=== PATIENT | female | born 1950 | race Caucasian/White ===

== ENCOUNTER 2023-01-10 14:33 | Inpatient (IN) | payer MEDICARE, SELFPAY ==
--- NOTE | ~2023-01-10 | XR_ITS ---
XR fl guide central line place 01/12/2023 09:53 Indication: Insertion of the dura Juan M permacatheter TECHNIQUE: Fluoroscopy used during Insertion of the dura Juan M permacatheter performed by [Daniel Avalos MD] on 01/12/2023. 66 seconds of fluoroscopy time with one fluoroscopic images captured. FINDINGS: Correlate with procedure note. IMPRESSION: Fluoroscopy used during Insertion of the dura Juan M permacatheter. Catheters appear to be i n the SVC. Recommend correlation with follow-up chest x-ray. Reviewed, dictated and finalized at location B. IMPRESSION: Fluoroscopy used during Insertion of the dura Juan M permacatheter. Ca theters appear to be in the SVC. Recommend correlation with follow-up chest x-r ay.
--- NOTE | ~2023-01-10 | XR_ITS ---
XR chest port-a-cath/central 01/12/2023 10:23 Indication: Insertion of there are flow catheter Procedure: AP portable chest Comparison: 01/11/2023 Findings: Interval placement of left internal jugular central venous catheter, tip overlies the SVC. Cardiomegaly. There is unchanged right basilar wedge-shaped consolidation which most likely represent s atelectasis or an scarring. There are healed right rib fractures. Impression: 1: Large bore central venous catheter tip, likely in the SVC. 2: Stable discoid right basilar opacity, likely atelectasis/scarring. Reviewed, dictated and finalized at location B. Impression: 1: Large bore central venous catheter tip, likely in the SVC. 2: Stable discoid right basilar opacity, likely atelectasis/scarring.
--- NOTE | ~2023-01-10 | XR_ITS ---
XR chest 1V portable 01/11/2023 14:11 Indication: Insertion of central venous catheter Procedure: AP portable chest Comparison: No prior studies for comparison. Findings: Right IJ central line tip in the SVC. Right basilar atelectasis. Diffuse bilateral intersti tial infiltrates. No pleural effusion or pneumothorax. There is right shoulder arthroplasty. Impression: 1: Diffuse bilateral interstitial infiltrates which may represent pneumonia or edema. 2: Subsegmental atelectasis right lung base. Reviewed, dictated and finalized at location L. Impression: 1: Diffuse bilateral interstitial infiltrates which may represent pneumonia or edema. 2: Subsegmental atelectasis right lung base.
[2023-01-10 14:33] VITALS: BP 109/75; PULSE 83; RESP 16; TEMP 36.3; O2SAT 99
--- NOTE | 2023-01-10 15:17 | ED.GENADULT ---
HPI - General Adult General Chief complaint: Unspecified Stated complaint: dialysis port not working Time Seen by Provider: 01/10/23 15:09 History of Present Illness HPI narrative: Pt's dialysis catheter hasn't worked for 2 treatments; her supervisor meter shop sent her to the hospital to get it fixed. EMS did not want to drive to the hospital so dropped her off here Related Data Home Medications Medication Instructions Recorded Confirmed amlodipine 5 mg tablet 5 mg PO DAILY 07/24/22 07/24/22 aspirin 81 mg tablet,delayed 81 mg PO DAILY 07/24/22 07/24/22 release (Adult Low Dose Aspirin) cholecalciferol (vitamin D3) 1,250 1,250 mcg PO WEEKLY 07/24/22 07/24/22 mcg (50,000 unit) tablet furosemide 20 mg tablet 20 mg PO QAM 07/24/22 07/24/22 gabapentin 600 mg tablet 600 mg PO TID 07/24/22 07/24/22 metoprolol tartrate 25 mg tablet 25 mg PO DAILY 07/24/22 07/24/22 Allergies Allergy/AdvReac Type Severity Reaction Status Date / Time No Known Allergies Allergy Verified 01/10/23 15:33 Review of Systems Review of Systems: CONST: No fever. HEENT: No sore throat C/V: No chest pain RESP: No cough GI: No abdominal pain : No dysuria. M/S: No joint pain. SKIN: No rash. NEURO: [No headache or focal numbness or weakness] PSYCH: [No depression] [facility] Past Medical History Medical History (Updated 01/10/23 @ 18:49 by Keila Nickerson MD) COPD (chronic obstructive pulmonary disease) CVA (cerebral vascular accident) with associated short term memory loss Depression End stage renal disease Hyperlipidemia Hypertension Nephrolithiasis Osteoarthritis Social History Social History (Updated 07/24/22 @ 12:00 by Tona Rosen MA) Smoking status: Former smoker Alcohol intake: unknown Substance use: unknown Lack of Transportation: No Lack of Food: Never True Current Housing: I Have Housing Concerned About Future Housing: No Difficulty Paying Gas/Electric Bills: No Difficulty Paying for Meds: YES Currently Unemployed: No Education: High School Diploma/GED Difficulty w/ Childcare or Family Care: No Living arrangements: with family Gender identity (if verbalized by the patient): Female Exam Narrative: EXAMINATION OF ORGAN SYSTEMS/BODY AREAS: Constitutional: Vital signs per nursing GENERAL:[No acute distress, non-toxic appearing.] HEAD: Normal with no signs of head trauma. EYES: EOMI, conjunctiva normal ENT: Hearing grossly intact LUNGS: Nonlabored breathing. HEART: [Regular rate and rhythm] ABD: [Soft], [nontender to palpation] EXT: Normal range of motion SKIN: [No rashes or lesions.] NEURO: [Alert. No gross focal sensory or strength deficits.] PSYCH: Normal affect Course Vital Signs Vital signs: Vital Signs Temperature 97.3 F L 01/10/23 14:33 Pulse Rate 83 01/10/23 14:33 Respiratory Rate 16 01/10/23 14:33 Blood Pressure 109/75 01/10/23 14:33 Pulse Oximetry 99 01/10/23 14:33 Temperature 97.3 F L 01/10/23 14:33 Pulse Rate 83 01/10/23 17:49 Respiratory Rate 15 01/10/23 17:49 Blood Pressure 114/81 01/10/23 17:49 Pulse Oximetry 97 01/10/23 17:49 Medical Decision Making [facility] Narrative Medical decision making narrative: 32-year-old female here with malfunctioning dialysis catheter, she has no knowledge of this. She does not know who her doctor is. Denies any symptoms. 1) Differential diagnosis: Volume overload, electrolyte abnormality 2) Comorbidities: ESRD on dialysis 3) External notes reviewed: Nephrology note 4) History sources independently obtained from: Mine Car Dispatcher Dr. Walter, son 5) Discussion of management with: [employer] Dispatcher, general surgeon 6) Independent interpretation of: Labs 7) Diagnostic tests or therapies considered but not ordered: n/a 8) Social determinants of health: n/a 9) Shared decision making: I did call the son at [phone] since patient unable to answer anything more, he states that she had had the cat
[2023-01-10 15:53] LABS: Basophils Absolute Auto 0.1 K/mm3 (0.0-0.1); Basophils Percent Auto 0.6 % (0.2-1.2); Eosinophils Absolute Auto 0.4 K/mm3 (0-0.3); Eosinophils Percent Auto 3.8 % (0-4.4); Hematocrit 37.3 % (37.0-47.0); Immature Granulocyte Absolute 0.05 K/mm3 (0.00-0.031); Immature Granulocyte Percent A 0.5 % (0-0.5); Lymphocytes Absolute Auto 2.02 K/mm3 (0.9-3.2); Lymphocytes Percent Auto 18.3 % (18.3-44.2); Mean Corpuscular HGB Conc 32.2 g/dl (32-36); Mean Corpuscular Hemoglobin 30.4 pg (26-34); Mean Corpuscular Volume 94.4 fl (80-100); Mean Platelet Volume 10.3 fl (7.4-10.4); Monocytes Absolute Auto 1.1 K/mm3 (0.1-0.6); Monocytes Percent Auto 10.3 % (2.6-8.5); Neutrophils Absolute Auto 7.3 K/mm3 (1.3-6.7); Neutrophils Percent Auto 66.5 % (45.5-73.1); Platelet Count Result 197 k/mm3 (150-375); Red Blood Count 3.95 M/mm3 (4.2-5.4); Red Cell Distribution Width 14.1 % (11.5-14.5)
[2023-01-10 16:55] LABS: Anion Gap 13 mmol/L (8-16); Blood Urea Nitrogen 29 mg/dL (7-17); Calcium 9.1 mg/dL (8.4-10.2); Carbon Dioxide 28 mmol/L (22-30); Chloride 96 mmol/L (98-107); Estimated CRCL calculation 15 ml/min; Estimated Glomerular Filt Rate 13; Glucose 95 mg/dL (65-110); Potassium 3.6 mmol/L (3.4-5.0); Sodium 137 mmol/L (137-145)
[2023-01-10 17:49] VITALS: BP 114/81; PULSE 83; RESP 15; O2SAT 97
[2023-01-10 20:52] VITALS: BP 106/71; PULSE 88; RESP 17; TEMP 36.5; O2SAT 94
[2023-01-10 21:05] VITALS: BP 110/72; PULSE 82; RESP 18; TEMP 36.4; O2SAT 97
[2023-01-10 21:09] VITALS: BMI 27.9
--- NOTE | 2023-01-10 21:27 | ADMGEN ---
This patient, Trisha Waite, was admitted to 2 Medical Room 240-01. Patient/family oriented to hospital policies and general routines including ID bracelet, bed and alarms, visiting hours, pain management, procedures, bathroom and other care routines, personal items, smoking policy, room service/diet, and visiting hours. Information on how to activate the Rapid Response Team has been discussed. Patient/Family are encouraged to report perceived risks to care and to ask questions if they do not understand what they are told or what they should do.
--- NOTE | 2023-01-11 01:28 | PM.IMHP ---
H&P: HPI History of Present Illness Date/Time: 01/11/23 01:28 Chief Complaint: malfunctioning HD catheter Narrative: This is a 72-year-old female with past medical history significant for end-stage renal disease patient just had dialysis catheter placed 3 days ago comes to the hospital due to malfunctioning catheter unable to flush. Patient denies any chest pain, shortness of breath, cough, sputum production, leg swelling, abdominal pain, nausea, vomiting, diarrhea. Preliminary workup was significant for creatinine of 3.4. Review of Systems Review of Systems: malfunctioning dialysis catheter Constitutional: Constitutional: Denies chills, Denies fatigue, Denies fever(s), Denies malaise and Denies weakness Eyes: Eyes: Denies change in vision ENT: Denies dysphagia and Denies odynophagia Cardiovascular: Cardiovascular: Denies chest pain, Denies leg edema, Denies radiating jaw, neck or arm pain and Denies palpitations Respiratory: Respiratory: Denies chest congestion, Denies cough and Denies dyspnea Gastrointestinal: Gastrointestinal: Denies abdominal pain, Denies dyspepsia, Denies heartburn, Denies diarrhea, Denies nausea and Denies vomiting Genitourinary: Genitourinary: Denies dysuria Musculoskeletal: Musculoskeletal: Denies arthralgias, Denies joint swelling and Denies muscle weakness Integumentary/Breasts: Skin/Breast: Denies rash Neurologic: Denies focal weakness and Denies Sensory deficit (Neuro) Psychiatric: Psychiatric: Reports no additional psychiatric complaints and Reports as per HPI Endocrine: Endocrine: Denies cold intolerance, Denies fatigue, Denies flushing, Denies heat intolerance, Denies polyphagia, Denies polydipsia and Denies palpitations Hematologic/Lymphatic: Hematologic/Lymphatic: Reports no additional hematologic/lymphatic complaints and Reports as per HPI Allergic/Immunologic: Allergic/Immunologic: Reports no additional allergic/immunologic complaints and Reports as per HPI PMFSH Past Medical History Medical History (Updated 01/11/23 @ 05:10 by Fransisco Lugo MD) COPD (chronic obstructive pulmonary disease) CVA (cerebral vascular accident) with associated short term memory loss Depression End stage renal disease Hyperlipidemia Hypertension Nephrolithiasis Osteoarthritis Social History Social History (Updated 07/24/22 @ 12:00 by Tona Rosen MA) Smoking status: Never smoker Alcohol intake: never Substance use: never Lack of Transportation: No Lack of Food: Never True Current Housing: I Have Housing Concerned About Future Housing: No Difficulty Paying Gas/Electric Bills: No Difficulty Paying for Meds: No Currently Unemployed: No Education: High School Diploma/GED Difficulty w/ Childcare or Family Care: No Living arrangements: with family Gender identity (if verbalized by the patient): Female Spiritual care concerns: No Meds Home Medications and Allergies Home Medications Medication Instructions Recorded Confirmed Type amlodipine 5 mg tablet 5 mg PO DAILY 07/24/22 01/10/23 History aspirin 81 mg tablet,delayed 81 mg PO DAILY 07/24/22 01/10/23 History release (Adult Low Dose Aspirin) furosemide 20 mg tablet 20 mg PO EVERY OTHER DAY 07/24/22 01/10/23 History cholecalciferol (vitamin D3) 125 125 mcg PO DAILY 01/10/23 01/10/23 History mcg (5,000 unit) tablet gabapentin 100 mg capsule 100 mg PO TID 01/10/23 01/10/23 History hydrocodone 5 mg-acetaminophen 325 1 tablet PO Q6H PRN Pain 01/10/23 01/10/23 History mg tablet metoprolol succinate 25 mg capsule 25 mg PO DAILY 01/10/23 01/10/23 History sprinkle, ext. release 24 hr Allergies Allergy/AdvReac Type Severity Reaction Status Date / Time No Known Allergies Allergy Verified 01/10/23 15:33 Vital Signs Vital Signs - 24 hr 01/10/23 14:33 01/10/23 17:49 01/10/23 20:52 Temperature 97.3 F L 97.7 F Pulse Rate 83 83 88 Respiratory Rate 16 15 17 Blood Pressure
[2023-01-11 04:59] LABS: Hemoglobin 10.8 g/dL (12.0-15.0); Mean Corpuscular HGB Conc 31.8 g/dl (32-36); Mean Corpuscular Hemoglobin 30.5 pg (26-34); Mean Platelet Volume 10.5 fl (7.4-10.4); Platelet Count Result 193 k/mm3 (150-375); Red Blood Count 3.54 M/mm3 (4.2-5.4); Red Cell Distribution Width 13.8 % (11.5-14.5); White Blood Count 8.1 K/mm3 (4.5-10.0)
[2023-01-11 05:10] LABS: Prothrombin Time 13.5 Seconds (11.1-14.7)
[2023-01-11 05:15] LABS: Albumin Level 3.7 g/dL (3.5-5.1); Anion Gap 8 mmol/L (8-16); Blood Urea Nitrogen 36 mg/dL (7-17); Calcium 8.9 mg/dL (8.4-10.2); Carbon Dioxide 29 mmol/L (22-30); Chloride 98 mmol/L (98-107); Estimated CRCL calculation 13 ml/min; Estimated Glomerular Filt Rate 11; Glucose 103 mg/dL (65-110); Phosphorus 5.4 mg/dL (2.5-4.5); Potassium 3.7 mmol/L (3.4-5.0); Sodium 135 mmol/L (137-145)
[2023-01-11 05:50] VITALS: BP 104/50; PULSE 78; RESP 18; TEMP 36.6; O2SAT 94
[2023-01-11 06:04] LABS: Hepatitis B Surface Antigen Negative (Negative)
[2023-01-11 08:58] VITALS: BP 104/61; PULSE 78; TEMP 36.8; O2SAT 95
[2023-01-11] MEDS: GABAPENTIN 100 MG CAPSULE PO ×3 (08:59→17:09)
[2023-01-11] MEDS: FUROSEMIDE 20 MG TABLET PO (08:59)
[2023-01-11] MEDS: ASPIRIN 81 MG ENTERIC TABLET PO (08:59)
[2023-01-11 09:00] VITALS: PULSE 78
[2023-01-11] MEDS: METOPROLOL SUCCINATE EXT REL 25 MG TABCR PO (09:00)
[2023-01-11] MEDS: CHOLECALCIFEROL 1,000 UNITS TABLET 5000 UNITS PO (09:00)
[2023-01-11] MEDS: amLODIPine BESYLATE 5 MG TABLET PO (09:00)
[2023-01-11 09:49] LABS: Hepatitis B Surface Anti Res Indeterminate
--- NOTE | 2023-01-11 10:45 | PM.CNNEP ---
Assessment and Plan Assessment and plan (1) End stage renal disease: Code(s): N18.6 - End stage renal disease Status: Chronic Assessment and Plan: recently initiated on [employer]/hemodialysis during recent hospitalization at [facility] however, has yet to receive a successful outpatient dialysis treatment since discharge from hospital due to #2 no critical electrolytes, significant acidosis or volume overload at this time so need for urgent dialysis at this time will proceed with dialysis once new HD catheter placed... (2) Hemodialysis catheter dysfunction: Code(s): T82.41XA - Breakdown (mechanical) of vascular dialysis catheter, initial encounter Status: Acute Assessment and Plan: as noted with outpatient dialysis treatment on Sunday and yesterday of this week at outpatient dialysis center ([facility]) unclear how well HD catheter was working when hospitalized at [facility] (where HD catheter was placed) no intervention done when hospitalized at [facility] earlier this week (and not sure why as reportedly it was not functioning very well during that hospitalization) Surgery consulted for new HD catheter (guidewire exchange versus placement of new HD catheter in another location) I will continue follow patient with you while she remains hospitalized and make further recommendations as needed. Thank you for allowing me to participate in the care of this patient. History of Present Illness Reason for Consult Consult date: 01/11/23 Reason for consult: end stage renal disease Chief Complaint Chief complaint: Dialysis Catheter Issue History of Present Illness Narrative: The patient is a 72-year-old female with a past medical history as outlined below who presented to [facility] Emergency room after being transported from her outpatient dialysis for further evaluation of ongoing dialysis catheter dysfunction. The patient was just recently admitted/hospitalized at [facility] and apparently, during that hospital stay, her renal dysfunction had deteriorated to the point where she was initiated on renal replacement therapy / dialysis. As she had fairly advanced chronic kidney disease at baseline, it was felt that she would likely remain dialysis dependent at that time. She had a tunneled dialysis catheter placed and was initiated on renal replacement therapy and eventually, was set up for outpatient dialysis at [facility] under the care of Dr. Joao Walter. She was scheduled to receive her 1st outpatient dialysis treatment on Sunday of this week but it was noted by the dialysis nursing staff that her tunneled dialysis catheter was not working very well. They attempted position changing as well as installation of alteplase but her HD catheter fail to improve if not work sufficiently to receive a dialysis treatment. She was transferred to [facility] on the assumption that they would replace her tunneled dialysis catheter but from my discussion with the patient as well as her outpatient dialysis unit, it appears this did not occur. She did receive some type of partial dialysis treatment while she was hospitalized at [facility] but the patient recalls that the dialysis treatment was very complicated and there were frequent alarms during the treatment arguing that her dialysis catheter once again did not function very well. Once again, outpatient dialysis was attempted on Sunday (yesterday ) at her outpatient dialysis unit and once again, her tunneled dialysis catheter failed to work for her to receive a dialysis treatment. Arrangements were made for the patient to be transferred to [facility] in [place] for a new tunneled dialysis catheter placement but apparently, EMS refused to take the patient that far and instead transporter here to [facility] Emergency Room. Routine b
--- NOTE | 2023-01-11 11:52 | PM.IMPN ---
Progress Note: A&P Assessment and Plan (1) Complication, dialysis catheter clot or failure: Status: Acute Assessment and Plan: Patient unable to finish her dialysis treatment on Sunday due to catheter complications. General surgery consult (2) Chronic kidney disease, stage 4 (severe): Code(s): N18.4 - Chronic kidney disease, stage 4 (severe) Status: Acute Assessment and Plan: Awaiting hemodialysis once dialysis Port successfully accessed Nephrology consulted. Dialysis on Fridays (3) Secondary hyperparathyroidism, not elsewhere classified: Code(s): E21.1 - Secondary hyperparathyroidism, not elsewhere classified Status: Acute Assessment and Plan: Deferred to Nephrology Subjective Date/time seen: 01/11/23 11:52 Interval history: Patient doing well today with no new complaints. Waiting on general surgery consultation. Patient does dialysis Wednesdays and Fridays. Exam Narrative: GENERAL: Comfortable, no acute distress HENMT: moist mucous membranes EYES: EOM intact b/l NECK: no lymphadenopathy RESPIRATORY: clear to auscultation CARDIO: RRR GI: soft, nontender, bowel sounds present SKIN: no rashes EXTREMITIES: no edema, redness or tenderness Objective Data Vital Signs Vital Signs: Vital Signs - 24 hr 01/10/23 14:33 01/10/23 17:49 01/10/23 20:52 Temperature 97.3 F L 97.7 F Pulse Rate 83 83 88 Respiratory Rate 16 15 17 Blood Pressure 109/75 114/81 106/71 Pulse Oximetry 99 97 94 Oxygen Delivery 01/10/23 21:05 01/10/23 21:20 01/11/23 05:50 Temperature 97.6 F 97.8 F Pulse Rate 82 78 Respiratory Rate 18 18 Blood Pressure 110/72 104/50 L Pulse Oximetry 97 94 Oxygen Delivery Room Air 01/11/23 08:58 01/11/23 09:00 01/11/23 09:00 Temperature 98.3 F Pulse Rate 78 78 Respiratory Rate Blood Pressure 104/61 Pulse Oximetry 95 Oxygen Delivery Room Air Meds/Results Medications: Active Medications Generic Name Dose Route Start Last Admin Trade Name Freq PRN Reason Stop Dose Admin Hydrocodone Bitart/Acetaminophen 1 tab 01/11/23 07:24 Hydrocodone/Acetaminophen (*Crx) 5-325 Mg Tablet PO Q6H PRN Pain Amlodipine Besylate 5 mg 01/11/23 09:00 01/11/23 09:00 Amlodipine Besylate 5 Mg Tablet PO 5 mg DAILY VARGHESE Administration Aspirin 81 mg 01/11/23 09:00 01/11/23 08:59 Aspirin 81 Mg Enteric Tablet PO 81 mg DAILY VARGHESE Administration Furosemide 20 mg 01/11/23 09:00 01/11/23 08:59 Furosemide 20 Mg Tablet PO 20 mg Q48H VARGHESE Administration Gabapentin 100 mg 01/11/23 09:00 01/11/23 08:59 Gabapentin 100 Mg Capsule PO 100 mg TID VARGHESE Administration Metoprolol Succinate 25 mg 01/11/23 09:00 01/11/23 09:00 Metoprolol Succinate Ext Rel 25 Mg Tabcr PO 25 mg DAILY VARGHESE Administration Vitamin D 5,000 units 01/11/23 09:00 01/11/23 09:00 Cholecalciferol 1,000 Units Tablet PO 5,000 units DAILY VARGHESE Administration Labs Labs: Laboratory Results - last 24 hr 01/10/23 01/11/23 15:40 04:24 WBC 11.0 H 8.1 RBC 3.95 L 3.54 L Hgb 12.0 10.8 L Hct 37.3 34.0 L MCV 94.4 96.0 MCH 30.4 30.5 MCHC 32.2 31.8 L RDW 14.1 13.8 Plt Count 197 193 MPV 10.3 10.5 H Immature Gran % (Auto) 0.5 Neut % (Auto) 66.5 Lymph % (Auto) 18.3 Bland % (Auto) 10.3 H Eos % (Auto) 3.8 Baso % (Auto) 0.6 Lymph # (Auto) 2.02 Bland # (Auto) 1.1 H Eos # (Auto) 0.4 H Baso # (Auto) 0.1 Abs Immat Gran (auto) 0.05 H Absolute Neuts (auto) 7.3 H Absolute Nucleated RBC 0.0 Nucleated RBC % 0.0 PT 13.5 INR 1.0 Sodium 137 135 L Potassium 3.6 3.7 Chloride 96 L 98 Carbon Dioxide 28 29 Anion Gap 13 8 BUN 29 H 36 H Creatinine 3.40 H 4.00 H Estim Creat Clear Calc 15 13 Estimated GFR 13 L 11 L Glucose 95 103 Calcium 9.1 8.9 Phosphorus 5.4 H Albumin 3.7 Hep Bs Antig
--- NOTE | 2023-01-11 12:36 | PM.CNGS ---
Assessment and Plan Assessment and plan (1) Hemodialysis catheter dysfunction: Code(s): T82.41XA - Breakdown (mechanical) of vascular dialysis catheter, initial encounter Status: Acute Assessment and Plan: Patient with end-stage renal disease on hemodialysis who has a tunneled dialysis catheter that it is no longer functioning. She has missed two outpatient dialysis treatments. Nephrology following. We have been consulted to replace her hemodialysis catheter. We will make her NPO after midnight and plan to proceed with replacement of the tunneled hemodialysis catheter tomorrow in the OR. Description of the procedure, risks, benefits, alternatives, and expected outcomes were discussed with the patient and her son in detail. Patient and son agree with proceeding. All questions were answered. (2) End stage renal disease: Code(s): N18.6 - End stage renal disease Status: Chronic (3) COPD (chronic obstructive pulmonary disease): Code(s): J44.9 - Chronic obstructive pulmonary disease, unspecified Status: Acute Plan I have discussed the patient's case and plan of care with Dr. Avalos. Thank you for allowing us to see the patient in consultation. History of Present Illness Consult details Consult date: 01/11/23 Reason for consult: other (Replacement of tunneled hemodialysis catheter) Requesting physician: Keila Nickerson MD Narrative: This is a 72-year-old woman with a history of CVA in 2019, COPD, hypertension, and end-staged renal disease who was brought into our ER from dialysis due to malfunction of her hemodialysis catheter. The patient is confused and is a very poor historian. History is obtained by review of the electronic medical record, and speaking with staff and her son, Demond. She has chronic renal failure and was recently started on hemodialysis about 2 weeks ago at [facility] in [place], [place]. She was recently moved to a [facility] and has been going to dialysis in [place]. She has had issues with her hemodialysis catheter not functioning well over the past week and has missed 2 dialysis treatments. She was brought into the ER from dialysis for this reason. In the ER, her labs showed a BUN 29 and creatinine 2.4. She was admitted to the hospital. Nephrology was consulted. Our service was consulted for replacement of her hemodialysis catheter. Labs today showed her creatinine is at 4.0. Review of Systems Review of Systems: ROS unobtainable: Yes unobtainable due to mental status PMFSH Past Medical History Medical History COPD (chronic obstructive pulmonary disease) CVA (cerebral vascular accident) with associated short term memory loss Depression End stage renal disease Hyperlipidemia Hypertension Nephrolithiasis Osteoarthritis Social History Social History Smoking status: Never smoker Alcohol intake: never Substance use: never Lack of Transportation: No Lack of Food: Never True Current Housing: I Have Housing Concerned About Future Housing: No Difficulty Paying Gas/Electric Bills: No Difficulty Paying for Meds: No Currently Unemployed: No Education: High School Diploma/GED Difficulty w/ Childcare or Family Care: No Living arrangements: with family Gender identity (if verbalized by the patient): Female Spiritual care concerns: No Meds Home Medications and Allergies Home Medications Medication Instructions Recorded Confirmed Type amlodipine 5 mg tablet 5 mg PO DAILY 07/24/22 01/10/23 History aspirin 81 mg tablet,delayed 81 mg PO DAILY 07/24/22 01/10/23 History release (Adult Low Dose Aspirin) furosemide 20 mg tablet 20 mg PO EVERY OTHER DAY 07/24/22 01/10/23 History cholecalciferol (vitamin D3) 125 125 mcg PO DAILY 01/10/23 01/10/23 History mcg (5,000 unit) tablet gabapentin 100 mg capsule 100 mg PO TID 01/10/23
[2023-01-11 14:00] VITALS: BP 92/56; PULSE 74; RESP 16; TEMP 36.8; O2SAT 93
--- NOTE | 2023-01-11 14:18 | PC.NURSE ---
On 01/11/23, the student, [Destiney Andersen], provided care and completed [facility] documentation on this patient. I have reviewed the student's documentation and agree with the findings.
[2023-01-11 15:44] VITALS: BP 98/56; PULSE 77; RESP 16; O2SAT 92
[2023-01-11 19:30] VITALS: BP 95/59; PULSE 70; RESP 18; TEMP 36.6; O2SAT 95
[2023-01-12] VITALS (31 sets, daily range): BP systolic 86–132; BP diastolic 50–78; PULSE 62–101; RESP 12–18; TEMP 36.2–37.5; O2SAT 90–100
[2023-01-12 05:58] LABS: Hemoglobin 10.8 g/dL (12.0-15.0); Mean Corpuscular HGB Conc 31.8 g/dl (32-36); Mean Corpuscular Hemoglobin 30.9 pg (26-34); Mean Corpuscular Volume 97.1 fl (80-100); Mean Platelet Volume 10.5 fl (7.4-10.4); Platelet Count Result 202 k/mm3 (150-375); White Blood Count 7.2 K/mm3 (4.5-10.0)
[2023-01-12 06:12] LABS: Alanine Aminotransferase 19 U/L (6-35); Albumin Level 3.8 g/dL (3.5-5.1); Alkaline Phosphatase 77 U/L (38-126); Anion Gap 10 mmol/L (8-16); Aspartate Amino Transferase 20 U/L (14-36); Bilirubin,Total 0.5 mg/dL (0.2-1.3); Blood Urea Nitrogen 46 mg/dL (7-17); Calcium 9.1 mg/dL (8.4-10.2); Carbon Dioxide 28 mmol/L (22-30); Chloride 96 mmol/L (98-107); Estimated CRCL calculation 10 ml/min; Estimated Glomerular Filt Rate 9; Glucose 101 mg/dL (65-110); Potassium 3.4 mmol/L (3.4-5.0); Sodium 134 mmol/L (137-145)
--- NOTE | 2023-01-12 08:11 | WPDANESEPPF ---
Anes - Initial Pre Proc Eval Procedure: Operation Date: 01/12/23 08:30 Proposed Procedures p Removal Old Permacath,Insertion Duraflow Permacath - Daniel Avalos MD Date/Time: 01/12/23 08:11 Surgeon: Teressa Saleem MD Pre Op Diagnosis: Dialysis Catheter Issue Patient Data Age: 72 Gender: F Height: 1.68 m Weight: 78.5 kg Last Vital Signs Temp 36.4 C 01/12/23 07:59 Pulse 63 01/12/23 07:59 Resp 16 01/12/23 07:59 BP 107/66 01/12/23 07:59 Pulse Ox 99 01/12/23 07:59 O2 Del Method Room Air 01/12/23 07:59 Allergies Allergy/AdvReac Type Severity Reaction Status Date / Time No Known Allergies Allergy Verified 01/12/23 07:34 Home Medications Medication Instructions Recorded Confirmed Type amlodipine 5 mg tablet 5 mg PO DAILY 07/24/22 01/10/23 History aspirin 81 mg tablet,delayed 81 mg PO DAILY 07/24/22 01/10/23 History release (Adult Low Dose Aspirin) furosemide 20 mg tablet 20 mg PO EVERY OTHER DAY 07/24/22 01/10/23 History cholecalciferol (vitamin D3) 125 125 mcg PO DAILY 01/10/23 01/10/23 History mcg (5,000 unit) tablet gabapentin 100 mg capsule 100 mg PO TID 01/10/23 01/10/23 History hydrocodone 5 mg-acetaminophen 325 1 tablet PO Q6H PRN Pain 01/10/23 01/10/23 History mg tablet metoprolol succinate 25 mg capsule 25 mg PO DAILY 01/10/23 01/10/23 History sprinkle, ext. release 24 hr Laboratory Tests 01/11/23 01/12/23 04:24 05:19 WBC 7.2 K/mm3 (4.5-10.0) RBC 3.50 L M/mm3 (4.2-5.4) Hgb 10.8 L g/dL (12.0-15.0) Hct 34.0 L % (37.0-47.0) MCV 97.1 fl (80-100) MCH 30.9 pg (26-34) MCHC 31.8 L g/dl (32-36) RDW 14.0 % (11.5-14.5) Plt Count 202 k/mm3 (150-375) MPV 10.5 H fl (7.4-10.4) Sodium 134 L mmol/L (137-145) Potassium 3.4 mmol/L (3.4-5.0) Chloride 96 L mmol/L (98-107) Carbon Dioxide 28 mmol/L (22-30) Anion Gap 10 mmol/L (8-16) BUN 46 H D mg/dL (7-17) Creatinine 5.00 H mg/dL (0.7-1.0) Estim Creat Clear Calc 10 ml/min Estimated GFR 9 L (59 - ) Glucose 101 mg/dL (65-110) Calcium 9.1 mg/dL (8.4-10.2) Total Bilirubin 0.5 mg/dL (0.2-1.3) AST 20 U/L (14-36) ALT 19 U/L (6-35) Alkaline Phosphatase 77 U/L (38-126) Total Protein 6.0 L g/dL (6.3-8.2) Albumin 3.8 g/dL (3.5-5.1) Hep Bs Antigen Negative (Negative) Hep Bs Antibody Indeterminate Patient hx anesthesia problems: none Family hx anesthesia problems: none Results Review: All pre-operative results and documents have been reviewed as part of the pre-operative evaluation. [facility] Past Medical History Medical History (Updated 01/11/23 @ 12:51 by Yanely Pa MD) COPD (chronic obstructive pulmonary disease) CVA (cerebral vascular accident) with associated short term memory loss Depression End stage renal disease Hyperlipidemia Hypertension Nephrolithiasis Osteoarthritis Social History Social History Smoking status: Never smoker Alcohol intake: never Substance use: never Lack of Transportation: No Lack of Food: Never True Current Housing: I Have Housing Concerned About Future Housing: No Difficulty Paying Gas/Electric Bills: No Difficulty Paying for Meds: No Currently Unemployed: No Education: High School Diploma/GED Difficulty w/ Childcare or Family Care: No Living arrangements: with family Gender identity (if verbalized by the patient): Female Spiritual care concerns: No Anes - Eval Final PreProcedure Day of Procedure 01/12/23 08:11 Patient weight: overweight Heart: regular rate and rhythm Lungs: clear to auscultation Airway: Mallampati scale class II Neurological: alert and oriented Last oral intake: >/= 8 hours ASA classification: IV Emerg
--- NOTE | 2023-01-12 08:27 | WPDHPUPDATE1 ---
History and Physical Update Update Date/Time: 01/12/23 08:27 History and Physical has been reviewed, including an updated exam of the patient. There are NO changes in the patient's condition. Risks, benefits, and alternatives have been discussed and questions answered. Patient agrees to proceed with procedure.
[2023-01-12] MEDS: ceFAZolin 2 GM/D5W 50 ML 2 GM/50 ML BAG IVPB (08:49)
[2023-01-12] MEDS: HEPARIN SODIUM 1,000 UNITS/ML VIAL 1000 UNITS IV PUSH (09:31)
[2023-01-12] MEDS: SODIUM CHLORIDE 0.9% IV 500 ML 30 ML IV CONT (09:41)
--- NOTE | 2023-01-12 10:05 | ECG_ITS ---
Measurements Intervals [place] Rate: 71 P: 21 DC: 160 QRS: -67 QRSD: 88 T: 29 QT: 433 QTc: 471 Interpretive Statements SINUS RHYTHM POOR R-WAVE PROGRESSION INFERIOR MYOCARDIAL INFARCTION , PROBABLY OLD [40+ ms Q WAVE AND/OR ST/T ABNORMALITY IN II/aVF] ABNORMAL ECG NO PREVIOUS ECG AVAILABLE FOR COMPARISON Electronically Signed On 01-12-2023 15:10:45 CDT by Ricki Millard M.D.
--- NOTE | 2023-01-12 10:11 | SUR.OPER ---
u/s in OR not used.
--- NOTE | 2023-01-12 10:15 | W.PM.PROC2 ---
Procedure Note - Detailed Date of Procedure 01/12/23 Pre-op Diagnosis Malfunctioning tunneled right internal jugular vein hemodialysis catheter, end-stage renal disease dialysis dependent. Post-op Diagnosis Same Procedure Performed Removal of right internal jugular vein nonfunctioning tunneled hemodialysis catheter with placement of new left internal jugular vein tunneled Duraflow hemodialysis catheter with intraoperative fluoroscopy. Surgeon Daniel Avalos MD Lab Scientist MEGAN Carlos Anesthesia General Indications Patient is a 72-year-old female who end-stage renal disease and is now dialysis dependent. She had a tunneled hemodialysis catheter placed at an outside facility which apparently has nonfunctioning. She has missed multiple hemodialysis treatments. She recently was admitted [facility] and needs a new hemodialysis catheter and removal of the old nonfunctioning catheter. Findings None significant Description of Procedure After informed consent was obtained patient was brought to the operating room she was placed supine position and general LMA anesthesia was administered. The bilateral upper anterior neck and chest was then prepped and draped usual sterile fashion with the existing nonfunctioning right upper chest hemodialysis catheter prepped into the field. Time-out was then performed correctly identifying the patient as well as procedure to be performed. She was given perioperative IV antibiotics. I 1st started by removing the right internal jugular vein nonfunctioning tunneled hemodialysis catheter. The suture securing the catheter in place at the skin was cut and the cuff subcutaneous tissues was just at the insertion site at the skin. I spread around the cuff with a Kiesha clamp and freed up from the surrounding subcutaneous tissues. Then with gentle traction on the catheter I removed from the right internal jugular vein. The catheter was discarded. Then held pressure on the area the right internal jugular vein for several minutes to achieve hemostasis. Next I then proceeded to place the new tunneled hemodialysis catheter in the left internal jugular vein. With the patient head-down Trendelenburg position a long 18gauge needle was then used to cannulate the internal jugular vein on the 1st pass out any difficulty. There was prompt return of dark venous appearing blood. A guidewire was then advanced through the needle into the left internal jugular vein is then subsequently down into the superior vena cava. Intraoperative fluoroscopy was used to document the placement of the tip of the guidewire. I then tunneled a for flow hemodialysis catheter from the left upper chest up to the insertion site of the guidewire leaving the subcutaneous cuff just superior to the insertion site at the skin. I enlarged the skin incision at the neck with a scalpel and then advanced serial dilators over the guidewire to enlarge venotomy in the left internal jugular vein. Lastly the large sheath and dilator was advanced over the guidewire and then the guidewire and dilator removed and then the tunneled hemodialysis catheter was advanced through the sheath into the right internal jugular vein and subsequently down into the superior vena cava. The sheath was then torn away leaving the catheter in place. Intraoperative fluoroscopy was then used to visualize the tip of the catheter. Initially was a little deep and so I pulled back so that was in the midportion of the superior vena cava. I then aspirated and flushed both ports of the hemodialysis catheter in the lisa back blood easily and was flushed heparinized saline solution with good flows. Lastly the catheter was flushed with 5000units of heparinized saline solution. I then secured the catheter to the skin with a 3-0 nylon suture. A sterile dressing was then applied. The patient tolerated the procedure well no complications. All sponges, needles, and instrument counts were correct at the end procedu
[2023-01-12] MEDS: BUPivacaine HCL 0.5% PF 30 ML VIAL INFILTRATE (10:32)
--- NOTE | 2023-01-12 10:38 | SUR.PHASEI ---
Dr. Pineda notified of EKG report. Verified patient would be going to telemetry bed when discharged from PACU. Patient has had no arrhythmias in PACU.
[2023-01-12] MEDS: CHOLECALCIFEROL 1,000 UNITS TABLET 5000 UNITS PO (11:50)
[2023-01-12] MEDS: ASPIRIN 81 MG ENTERIC TABLET PO (11:50)
[2023-01-12] MEDS: GABAPENTIN 100 MG CAPSULE PO ×2 (11:50→17:53)
--- NOTE | 2023-01-12 13:58 | PC.NURSE ---
Patient to dialysis via bed at 1345
--- NOTE | 2023-01-12 14:05 | PM.PNNEP ---
Progress Note: A&P Assessment and Plan (1) End stage renal disease: Code(s): N18.6 - End stage renal disease Status: Chronic Assessment and Plan: initiated on [employer]/hemodialysis during recent hospitalization at [facility] in [place] however, has yet to receive a successful outpatient dialysis treatment since discharge from hospital due to #2 HD today and resume M/W/F dialysis schedule (2) Hemodialysis catheter dysfunction: Code(s): T82.41XA - Breakdown (mechanical) of vascular dialysis catheter, initial encounter Status: Acute Assessment and Plan: as noted with outpatient dialysis treatment on Sunday and yesterday of this week at outpatient dialysis center ([facility]) unclear how well HD catheter was working when hospitalized at [facility] in [place] (where HD catheter was placed) no intervention done when hospitalized at [facility] earlier this week (and not sure why as reportedly it was not functioning very well during that hospitalization) Surgery following s/p new tunneled HD catheter placement today Would not be opposed discharge following dialysis today if otherwise medically stable. Will continue to follow. Subjective Date/time seen: 01/12/23 14:05 Interval history: Follow-up for end stage renal disease on hemodialysis. S/P placement of new tunneled HD catheter earlier today and tolerated this procedure reasonably well; tolerating dialysis treatment at the time of my visit with good blood flows (seen on HD at 1:55PM); no apparent distress voiced currently; no issues or events overnight or earlier this morning. Exam Narrative: General: elderly but WD/WN female in NAD Heart: normal S1 and S2; no rub Lungs: clear to auscultation Abdomen: soft, nontender, nondistended, positive bowel sounds Extremities: no cyanosis or clubbing; no edema Skin: warm and dry Objective Data Vital Signs Vital Signs: Vital Signs Temp Pulse Resp BP Pulse Ox O2 Del Method O2 Flow Rate 01/12/23 14:05 87 114/66 01/12/23 13:45 2 01/12/23 13:45 97.9 F 87 16 107/64 01/12/23 13:51 83 112/68 01/12/23 13:15 97.6 F 96 18 105/64 91 01/12/23 12:15 97.5 F L 81 18 104/62 94 01/12/23 11:45 97.5 F L 84 18 125/78 97 01/12/23 11:46 79 01/12/23 11:30 97.4 F L 62 18 112/64 93 01/12/23 11:05 68 14 116/69 96 Nasal Cannula 2 01/12/23 10:50 66 12 109/69 95 Nasal Cannula 2 01/12/23 10:35 69 18 108/72 92 Room Air 01/12/23 10:20 68 18 115/70 97 Simple Face Mask 8 01/12/23 10:05 97.2 F L 71 14 86/65 L 100 Simple Face Mask 8 01/12/23 07:59 97.6 F 63 16 107/66 99 Room Air 01/12/23 05:49 97.7 F 66 18 95/57 L 95 01/11/23 19:55 Room Air 01/11/23 19:30 97.9 F 70 18 95/59 L 95 01/11/23 15:44 77 16 98/56 L 92 Intake/Output Intake/Output: Intake & Output 01/09/23 01/10/23 01/11/23 01/12/23 23:59 23:59 23:59 23:59 Intake Total 700 390 Balance 700 390 Meds/Results Medications: Active Medications Generic Name Dose Route Start Last Admin Trade Name Mahogany PRN Reason Stop Dose Admin Hydrocodone Bitart/Acetaminophen 1 tab 01/11/23 07:24 Hydrocodone/Acetaminophen (*Crx) 5-325 Mg Tablet PO Q6H PRN Pain Amlodipine Besylate 5 mg 01/11/23 09:00 01/12/23 11:47 Amlodipine Besylate 5 Mg Tablet PO Not Given DAILY VARGHESE Aspirin 81 mg 01/11/23 09:00 01/12/23 11:50 Aspirin 81 Mg Enteric Tablet PO 81 mg DAILY VARGHESE Administration Epoetin Triston-epbx 10,000 units 01/12/23 20:39 01/12/23 14:26 Epoetin Triston-Epbx 10,000 Units/Ml Vial IV PUSH 01/12/23 20:40 10,000 units ONCE ONE Administration Furosemide 20 mg 01/11/23 09:00 01/11/23 08:59 Furosemide 20 Mg Tablet PO 20 mg Q48H VARGHESE Administration Gabapentin 100 mg 01/11/23 09:00 01/12/23 14:16 Gabapentin 100 Mg Capsule
[2023-01-12] MEDS: EPOETIN ALFA-EPBX 10,000 UNITS/ML VIAL 10000 UNITS IV PUSH (14:26)
[2023-01-12] MEDS: SODIUM CHLORIDE 0.9% IV 1,000 ML 999 ML IV CONT (14:39)
--- NOTE | 2023-01-12 15:26 | PM.IMPN ---
Progress Note: A&P Assessment and Plan (1) Complication, dialysis catheter clot or failure: Status: Acute Assessment and Plan: Patient unable to finish her dialysis treatment on Sunday due to catheter complications. General surgery consult Port replaced today (2) Chronic kidney disease, stage 4 (severe): Code(s): N18.4 - Chronic kidney disease, stage 4 (severe) Status: Acute Assessment and Plan: Awaiting hemodialysis once dialysis Port successfully accessed Nephrology consulted. Dialysis on Fridays (3) Secondary hyperparathyroidism, not elsewhere classified: Code(s): E21.1 - Secondary hyperparathyroidism, not elsewhere classified Status: Acute Assessment and Plan: Deferred to Nephrology Subjective Date/time seen: 01/12/23 15:26 Interval history: Patient doing well post-operatively. She will need to get dialysis with her new port prior to discharge. Likely discharge tomorrow due to dialysis being late in the day. Exam Narrative: GENERAL: Comfortable, no acute distress HENMT: moist mucous membranes EYES: EOM intact b/l NECK: no lymphadenopathy RESPIRATORY: clear to auscultation CARDIO: RRR GI: soft, nontender, bowel sounds present SKIN: no rashes EXTREMITIES: no edema, redness or tenderness Objective Data Vital Signs Vital Signs: Vital Signs - 24 hr 01/11/23 15:44 01/11/23 19:30 01/11/23 19:55 Temperature 97.9 F Pulse Rate 77 70 Respiratory Rate 16 18 Blood Pressure 98/56 L 95/59 L Pulse Oximetry 92 95 Oxygen Delivery Room Air Oxygen Flow Rate 01/12/23 05:49 01/12/23 07:59 01/12/23 10:05 Temperature 97.7 F 97.6 F 97.2 F L Pulse Rate 66 63 71 Respiratory Rate 18 16 14 Blood Pressure 95/57 L 107/66 86/65 L Pulse Oximetry 95 99 100 Oxygen Delivery Room Air Simple Face Mask Oxygen Flow Rate 8 01/12/23 10:20 01/12/23 10:35 01/12/23 10:50 Temperature Pulse Rate 68 69 66 Respiratory Rate 18 18 12 Blood Pressure 115/70 108/72 109/69 Pulse Oximetry 97 92 95 Oxygen Delivery Simple Face Mask Room Air Nasal Cannula Oxygen Flow Rate 8 2 01/12/23 11:05 01/12/23 11:30 01/12/23 11:46 Temperature 97.4 F L Pulse Rate 68 62 79 Respiratory Rate 14 18 Blood Pressure 116/69 112/64 Pulse Oximetry 96 93 Oxygen Delivery Nasal Cannula Oxygen Flow Rate 2 01/12/23 11:45 01/12/23 12:15 01/12/23 13:15 Temperature 97.5 F L 97.5 F L 97.6 F Pulse Rate 84 81 96 Respiratory Rate 18 18 18 Blood Pressure 125/78 104/62 105/64 Pulse Oximetry 97 94 91 Oxygen Delivery Oxygen Flow Rate 01/12/23 13:51 01/12/23 13:45 01/12/23 13:45 Temperature 97.9 F Pulse Rate 83 87 Respiratory Rate 16 Blood Pressure 112/68 107/64 Pulse Oximetry Oxygen Delivery Oxygen Flow Rate 2 01/12/23 14:05 01/12/23 14:25 01/12/23 14:40 Temperature Pulse Rate 87 89 91 Respiratory Rate Blood Pressure 114/66 107/63 113/64 Pulse Oximetry Oxygen Delivery Oxygen Flow Rate 01/12/23 14:55 01/12/23 15:10 Temperature Pulse Rate 91 81 Respiratory Rate Blood Pressure 112/63 132/56 L Pulse Oximetry Oxygen Delivery Oxygen Flow Rate Intake/Output Intake/Output: Intake & Output 01/09/23 01/10/23 01/11/23 01/12/23 23:59 23:59 23:59 23:59 Intake Total 700 390 Balance 700 390 Meds/Results Medications: Active Medications Generic Name Dose Route Start Last Admin Trade Name Freq PRN Reason Stop Dose Admin Hydrocodone Bitart/Acetaminophen 1 tab 01/11/23 07:24 Hydrocodone/Acetaminophen (*Crx) 5-325 Mg Tablet PO Q6H PRN Pain Amlodipine Besylate 5 mg 01/11/23 09:00 01/12/23 11:47 Amlodipine Besylate 5 Mg Tablet PO Not Given DAILY [facility] Aspirin 81 mg 01/11/23 09:00 01/12/23 11:50 Aspirin 81 Mg Enteric Tablet PO 81 mg DAILY [facility] Administration Epoetin Triston-epbx 10,000 units 01/12/23 20:39 01/12/23
[2023-01-12] MEDS: HYDROcodone/acetaminophen (*CRX) 5-325 MG TABLET 1 TAB PO (17:52)
[2023-01-13] VITALS (8 sets, daily range): BP systolic 92–109; BP diastolic 60–69; PULSE 69–91; RESP 14–20; TEMP 36.2–36.7; O2SAT 91–93
[2023-01-13] MEDS: ASPIRIN 81 MG ENTERIC TABLET PO (09:27)
[2023-01-13] MEDS: GABAPENTIN 100 MG CAPSULE PO ×3 (09:27→17:13)
[2023-01-13] MEDS: CHOLECALCIFEROL 1,000 UNITS TABLET 5000 UNITS PO (09:27)
--- NOTE | 2023-01-13 11:23 | PM.DS ---
DS: Admitting Diagnosis Discharge Date 01/13/23 Admitting Diagnosis Malfunctioning HD catheter DS: Discharge Diagnosis Discharge Diagnosis (1) Complication, dialysis catheter clot or failure: Status: Acute (2) Chronic kidney disease, stage 4 (severe): Code(s): N18.4 - Chronic kidney disease, stage 4 (severe) Status: Acute (3) Secondary hyperparathyroidism, not elsewhere classified: Code(s): E21.1 - Secondary hyperparathyroidism, not elsewhere classified Status: Acute DS: Summary Hospital Course Hospital Course: This is a 72-year-old female past medical history of end-stage renal disease and hypertension the presents to the ED on 01/11/2023 due to dialysis catheter malfunctioning and unable to flush. Patient does dialysis on Sunday. On Sunday patient was unable to finish her dialysis due to malfunction catheter. She was admitted for port replacement. General surgery consulted. Patient had procedure done on 01/12/2023. Patient had subsequent dialysis afterwards and tolerated it well. Advised patient to continue on her regularly scheduled dialysis appointments. Time Spent with Patient Time attestation: Total time spent providing and/or coordinating discharge services: Exam Narrative: GENERAL: Comfortable, no acute distress HENMT: moist mucous membranes EYES: EOM intact b/l NECK: no lymphadenopathy RESPIRATORY: clear to auscultation CARDIO: RRR GI: soft, nontender, bowel sounds present SKIN: no rashes EXTREMITIES: no edema, redness or tenderness DS: Data Data Completed and Pending Labs on day of discharge: Preliminary micro results at discharge 01/10/23 22:40 Blood Culture - Preliminary Blood 01/10/23 22:40 Blood Culture - Preliminary Blood Discharge Plan Discharge Attending physician on discharge: Del Haro Consulting providers: Yanely Pa; Daniel Avalos Discharging Clinician: Rosa Perez Patient Disposition: Home, Self-Care Activity: as tolerated Diet: renal Discharge Instructions: Continue with regularly scheduled dialysis appointments on Sunday. Discharge disposition: Take medications as prescribed Monitor blood pressures Avoid social areas, you wear a mask when in social settings Encouraged to continue with yearly vaccinations Return to the emergency department if he developed sudden shortness of breath, chest pain, nausea, vomiting, upset stomach or intractable diarrhea Return to the emergency department if you develop fever greater than 100.4 Follow-up with the primary care physician within 1-2 weeks Thank you for [facility] for your healthcare needs Patient Instructions: Antibiotic Form Stand Alone Forms: General Discharge Information Follow-up/Referrals: Yanely Pa MD [Physician] - Anay,MD Jasson [Primary Care Provider] - Discharge Medications: Continued furosemide 20 mg tablet 20 mg PO EVERY OTHER DAY Rx Instructions: take 20mg every other day aspirin [Adult Low Dose Aspirin] 81 mg tablet,delayed release (DR/EC) 81 mg PO DAILY amlodipine 5 mg tablet 5 mg PO DAILY hydrocodone-acetaminophen [[place]] 5-325 mg Tablet 1 tablet PO Q6H PRN (Reason: Pain) gabapentin 100 mg Capsule 100 mg PO TID cholecalciferol (vitamin D3) 125 mcg (5,000 unit) Tablet 125 mcg PO DAILY metoprolol succinate 25 mg Capsule,Sprinkle,Er 24hr 25 mg PO DAILY Date of admission: 01/12/23 14:31 Primary Care Provider: AnayJasson Admitting Provider: Teressa Saleem Attending physician on admission: Teressa Saleem Condition: Stable
[2023-01-13] MEDS: FUROSEMIDE 20 MG TABLET PO (11:49)
[2023-01-13 13:32] LABS: SARS-CoV-2 RNA PCR Negative (Negative)
== END 2023-01-13 19:14 | disposition home or self-care (01) | DRG 673 ==
LOC: ANHED 18:49 → ANH2MED 20:29
PROVIDERS: Internal Medicine Nephrology; Surgery; Admitting Provider General Practice; Emergency Provider Emergency Medicine; PCP Family Medicine; Visit Provider Internal Medicine Critical Care Medicine
PROC: 02PY33Z Removal of Infusion Device from Great Vessel, Percutaneous Approach (ICD-10-PCS; CPT 36908; principal; 2023-01-12 08:30)
DX: T82.41XA Breakdown (mechanical) of vascular dialysis catheter, initial encounter (principal); N18.6 End stage renal disease; I12.0 Hypertensive chronic kidney disease with stage 5 chronic kidney disease or end stage renal disease; I69.311 Memory deficit following cerebral infarction; E78.5 Hyperlipidemia, unspecified; E21.1 Secondary hyperparathyroidism, not elsewhere classified; F32.A Depression, unspecified; J44.9 Chronic obstructive pulmonary disease, unspecified; Z99.2 Dependence on renal dialysis; M19.90 Unspecified osteoarthritis, unspecified site; Z87.442 Personal history of urinary calculi; Z79.82 Long term (current) use of aspirin; Z11.52 Encounter for screening for COVID-19
CPT/HCPCS: 36415; 71045; 77001; 80048; 80053; 80069; 85025; 85027; 85610; 86706; 87040; 87340; 87635; 93005; 99285; A9270; C1750; G0257; G0378; J0690; J1100; J1644; J2250; J2405; J2704; J3010; J7030; J7040; Q5105

== ENCOUNTER 2024-03-07 16:41 | Inpatient (IN) | payer MEDICARE, SELFPAY ==
[2024-03-07] VITALS (17 sets, daily range): BP systolic 82–151; BP diastolic 55–99; PULSE 87–134; RESP 15–33; O2SAT 89–96
--- NOTE | ~2024-03-07 | XR_ITS ---
EXAMINATION: XR barium swallow modified DATE: 03/08/2024 12:29 INDICATION: Dysphagia. TECHNIQUE: The patient was given barium-containing material of multiple consistencies to swallow by t hal speech pathologist while I performed fluoroscopy. Fluoroscopy exposure time was 1.9 minutes. The n umber of fluoroscopy images saved to the PACS was 1. Dose-area product was 2.558 Gy-cm^2. FINDINGS: There is reduced tongue base retraction and vallecular residue. IMPRESSION: 1. No laryngeal penetration or aspiration. 2. Please refer to the speech therapy report for recommendations. Reviewed, dictated and finalized at location A. LIQUORS SALES REPRESENTATIVE
--- NOTE | ~2024-03-07 | XR_ITS ---
EXAMINATION: XR chest 1V portable DATE: 03/07/2024 17:53 INDICATION: Shortness of breath. TECHNIQUE: A single frontal view of the chest was obtained. COMPARISON: Chest single view 01/12/2023 FINDINGS: There are mild airspace opacities in right lower lung zone. No pleural effusion or pneumoth orax. The heart size is normal. A left internal jugular central venous catheter is seen with tip in r ight atrium. An electronic implant overlies left chest. There is a total right shoulder arthroplasty. There are old healed right rib fractures. IMPRESSION: 1. Mild airspace opacities in right lower lung zone, consistent with atelectasis versus pneumonia. Reviewed, dictated and finalized at location A. TES GRINDER IMPRESSION: 1. Mild airspace opacities in right lower lung zone, consistent with atelectasi s versus pneumonia.
--- NOTE | ~2024-03-07 | US_ITS ---
EXAMINATION: US arterial duplex UE LT DATE: 03/10/2024 13:58 INDICATION: Assess function of left upper extremity dialysis fistula TECHNIQUE: Multiple grayscale and Doppler ultrasound images of the left upper extremity were obtained . COMPARISON: None FINDINGS: Left brachial artery and the proximal left radial and ulnar arteries are patent with normal triphasic waveforms with brisk systolic upstrokes. The cephalic vein is patent and compressible. There is a th rombosed fistula extending between the left radial artery and the left cephalic vein with no internal vascular flow on color Doppler. IMPRESSION: 1. Thrombosed left radiocephalic dialysis fistula. Reviewed, dictated and finalized at location B. T OF CARE SPECIALIST
[2024-03-07] MEDS: ALBUTEROL SULFATE NEB 2.5 MG/3 ML INH 5 MG INHALATION (17:03)
--- NOTE | 2024-03-07 17:03 | ECG_ITS ---
Test Date: 2024-03-07 17:05:21 Measurements Intervals [place] Rate: 127 P: 17 VA: 150 QRS: -81 QRSD: 105 T: 61 QT: 315 QTc: 458 Interpretive Statements SINUS TACHYCARDIA INCOMPLETE RIGHT BUNDLE BRANCH BLOCK [90+ ms QRS DURATION, TERMINAL R IN V1/V2, 40+ ms S IN I/aVL/V4/V5/V6] Poor R wave progression INFERIOR MYOCARDIAL INFARCTION , OF INDETERMINATE AGE [40+ ms Q WAVE AND/OR ST/T ABNORMALITY IN II/aVF] No previous ECG available for comparison Electronically Signed On 03-07-2024 18:41:43 [employer] CONSULTANT by Frederick West M.D.
--- NOTE | 2024-03-07 17:04 | PCRCNOTE ---
HAD TO WAIT FOR PT. TO HAVE EKG AND BE STRAIGHT CATHED BEFORE ABLE TO DRAW ABG OR DO NEB TX.
--- NOTE | 2024-03-07 17:06 | ED_ITS ---
HPI - General Adult General Chief complaint: Shortness of Breath/Dyspnea Stated complaint: dyspnea Time Seen by Provider: 03/07/24 16:45 History of Present Illness HPI narrative: 73-year-old female presented to the emergency department from dialysis for evaluation for worsening shortness of breath. Patient made it through almost her complete dialysis [facility] when she began and having increased shortness of breath associated nausea and vomiting. Patient did cough up multiple pieces of corn, aspiration pneumonia is suspected. Patient is A&O x1 at baseline. Related Data Home Medications ?Medication ?Instructions ?Recorded ?Confirmed ?Last Taken ?Type aspirin 81 mg tablet,delayed 81 mg PO DAILY 07/24/22 02/29/24 01/10/23 History release (Adult Low Dose Aspirin) cholecalciferol (vitamin D3) 125 125 mcg PO DAILY 01/10/23 02/29/24 01/10/23 History mcg (5,000 unit) tablet gabapentin 100 mg capsule 100 mg PO TID 01/10/23 02/29/24 02/29/24 History hydrocodone 5 mg-acetaminophen 325 1 tablet PO Q6H PRN Pain 01/10/23 02/29/24 Unknown History mg tablet omeprazole 20 mg tablet,delayed 20 mg PO DAILY 02/29/24 02/29/24 Unknown History release sevelamer HCl 800 mg tablet 800 mg PO TID 02/29/24 02/29/24 Unknown History Allergies Allergy/AdvReac Type Severity Reaction Status Date / Time No Known Allergies Allergy Verified 01/12/23 07:34 Review of Systems 2 Review of Systems: All systems reviewed & are unremarkable except as noted in HPI and below PMFSH Past Medical History Medical History (Updated 03/07/24 @ 22:32 by Antony Guzman MD) Anemia in chronic kidney disease (CKD) Oropharyngeal dysphagia Gait abnormality Hyperlipidemia Hypertension Depression Nephrolithiasis Osteoarthritis CVA (cerebral vascular accident) with associated short term memory loss COPD (chronic obstructive pulmonary disease) End stage renal disease Social History Social History Smoking status: Former smoker Tobacco type: cigarettes Smoking end date: 02/28/14 Alcohol intake: never Substance use: never Substance use type: does not use Do You Feel Safe in your Home?: Yes Lack of Transportation: No Lack of Food: Never True Current Housing: I Have Housing Concerned About Future Housing: No Difficulty Paying Gas/Electric Bills: No Difficulty Paying for Meds: No Currently Unemployed: No Education: High School Diploma/GED Difficulty w/ Childcare or Family Care: No Living arrangements: with family Gender identity (if verbalized by the patient): Female Spiritual care concerns: No Exam 2 Narrative: APPEARANCE: Ill-appearing HEAD: normocephalic, atraumatic. EYES: PERRLA/EOMI, conjunctivae clear. NOSE: Normal no drainage EARS:TMS clear with good light reflex. THROAT: Pharynx clear, no exudate. NECK: Supple. No adenopathy, no masses. RESPIRATORY: Airway patent, respirations nonlabored. Clear to auscultation bilaterally, no rales, rhonchi, wheezing. CARDIOVASCULAR: Regular rate and rhythm without murmurs rubs or gallops. ABDOMINAL: Soft, nontender, nondistended, normal bowel sounds MUSCULOSKELETAL: Moves all extremities. Strength/ROM intact, No edema, No calf tenderness. NEURO: Alert. Cranial nerves II through XII intact. Good gait. Good coordination SKIN: Warm, dry. Normal Color Course Vital Signs Vital signs: Vital Signs Pulse Rate 121 H 03/07/24 16:46 Respiratory Rate 25 H 03/07/24 16:46 Blood Pressure 151/99 H 03/07/24 16:46 Pulse Oximetry 89 L 03/07/24 16:46 Oxygen Delivery Nasal Cannula 03/07/24 16:46 Oxygen Flow Rate 4 03/07/24 16:46 Pulse Rate 99 03/07/24 19:53 Respiratory Rate 29 H 03/07/24 19:53 Blood Pressure 102/76 03/07/24 19:53 Pulse Oximetry 93 03/07/24 19:53 Oxygen Delivery Nasal Cannula 03/07/24 19:18 Oxygen Flow Rate 4 03/07/24 19:18 Medical Decision Making [facility] Narrative Medical decision making narrative: 73-year-old female presents emergency department for evaluation for suspected aspiration pneumonia. Chest x-ray was concerning for pneumonia. Patient was started Rocephin, is throw and vancomycin. Id scheduled nebulizers were ordered. Patient was hypotensive and tachycardic upon arrival. Patient was treated with IV fluids and patient's blood pressure did improve. Case was discussed with hospitalist patient was accepted for admission. Differential Diagnosis Differential Diagnosis: Pneumonia, aspiration pneumonia, COVID, RSV, influenza Vital Signs Vital Signs: Vital Signs Pulse Rate 121 H 03/07/24 16:46 Respiratory Rate 25 H 03/07/24 16:46 Blood Pressure 151/99 H 03/07/24 16:46 Pulse Oximetry 89 L 03/07/24 16:46 Oxygen Delivery Nasal Cannula 03/07/24 16:46 Oxygen Flow Rate 4 03/07/24 16:46 Pulse Rate 99 03/07/24 19:53 Respiratory Rate 29 H 03/07/24 19:53 Blood Pressure 102/76 03/07/24 19:53 Pulse Oximetry 93 03/07/24 19:53 Oxygen Delivery Nasal Cannula 03/07/24 19:18 Oxygen Flow Rate 4 03/07/24 19:18 Lab Data Lab results reviewed: Yes I reviewed the patient's lab results. 03/07/24 17:30 03/07/24 17:30 Labs: Lab Results 03/07/24 03/07/24 Range/Units 17:30 17:32 WBC 17.7 H (4.5-10.0) K/mm3 RBC 3.73 L (4.2-5.4) M/mm3 Hgb 13.0 (12.0-15.0) g/dL Hct 39.9 (37.0-47.0) % MCV 107.0 H (80-100) fl MCH 34.9 H (26-34) pg MCHC 32.6 (32-36) g/dl RDW 14.1 (11.5-14.5) % Plt Count 190 (150-375) k/mm3 MPV 10.0 (7.4-10.4) fl Immature Gran % (Auto) Not Reportable Neut % (Auto) Not Reportable Lymph % (Auto) Not Reportable [place] % (Auto) Not Reportable Eos % (Auto) Not Reportable Baso % (Auto) Not Reportable Lymph # (Auto) Not Reportable [place] # (Auto) Not Reportable Eos # (Auto) Not Reportable Baso # (Auto) Not Reportable Abs Immat Gran (auto) Not Reportable Absolute Neuts (auto) Not Reportable Absolute Nucleated RBC Not Reportable Total Counted 100 Neutrophils % (Manual) 92 H (46-73) % Band Neutrophils % 1 (0-6) % Lymphocytes % (Manual) 4.0 L (18-44) % Monocytes % (Manual) 3 (3-9) % Nucleated RBC % Not Reportable Abs Neuts (Manual) 16.46 H (1.7-7.2) K/mm3 Abs Lymphs (Manual) 0.70 L (1.1-4.5) K/mm3 Abs Monocytes (Manual) 0.53 (0.1-0.90) K/mm3 Platelet Estimate Adequate (Adequate) Hypochromasia 1+ Anisocytosis 2+ Schistocytes None seen PT 14.1 (11.1-14.7) Seconds INR 1.0 APTT 25.2 (22.3-36.8) Seconds Sodium 136 L (137-145) mmol/L Potassium 4.2 (3.4-5.0) mmol/L Chloride 98 (98-107) mmol/L Carbon Dioxide 27 (22-30) mmol/L Anion Gap 11 (4-12) mmol/L BUN 11 D (7-17) mg/dL Creatinine 2.50 H (0.7-1.0) mg/dL Estim Creat Clear Calc 18 ml/min Estimated GFR 19 L (59 - ) Glucose 216 H (65-110) mg/dL Lactic Acid 2.9 H (0.7-2.0) mmol/L Calcium 9.2 (8.4-10.2) mg/dL Total Bilirubin 1.0 (0.2-1.3) mg/dL AST 29 (14-36) U/L ALT 15 (6-35) U/L Alkaline Phosphatase 85 (38-126) U/L NT-Pro-B Natriuret Pep 879 H (19.9-100) pg/mL Total Protein 8.0 (6.3-8.2) g/dL Albumin 4.7 (3.5-5.1) g/dL Influenza A (RT-PCR) Negative (Negative) Influenza B (RT-PCR) Negative (Negative) RSV (RT-PCR) Negative (Negative) SARS-CoV-2 RNA (RT-PCR) Negative (Negative) ABG Data ABG results: 03/07/24 17:24 Puncture Site Left brachial ABG pH 7.425 ABG pCO2 35.3 ABG pO2 59.4 L ABG PO2/FiO2 Ratio 1.56 ABG HCO3 22.6 ABG O2 Saturation 91.5 L ABG O2 Content 17.6 ABG Base Excess -1.2 A-a Gradient 170.8 Oxyhemoglobin 90.0 Total Hemoglobin 13.9 O2 Delivery Device Nasal cannula O2 Liters/Min 4.5 FiO2 38 Imaging Data Radiologist's impression: Impressions Chest X-Ray 03/07/24 17:55 IMPRESSION: 1. Mild airspace opacities in right lower lung zone, consistent with atelectasis versus pneumonia. Discharge Plan Discharge Clinical Impression: Pneumonia, Hypoxia Patient Disposition: Still a Patient Condition: Serious
[2024-03-07 17:30] LABS: Alveolar/Arterial O2 Gradient 170.8 mmHg; Base Excess ABG -1.2 mEq/l (+/-2.0); Fractional Inspired Oxygen 38 %; HCO3 ABG 22.6 mEq/l (22.0-26.0); Oxygen Content ABG 17.6 %vol (16.0-22.0); Oxygen Saturation ABG 91.5 % (95.0-100.0); PCO2 ABG 35.3 mmHg (35.0-45.0); PO2 ABG 59.4 mmHg (80.0-100.0); PO2 FiO2 Ratio Arterial Blood 1.56 %; Site Drawn LEFT BRACHIAL; Total Hemoglobin 13.9 g/dL (12.0-18.0); pH ABG 7.425 (7.350-7.450)
[2024-03-07 17:31] LABS: Device NASAL CANNULA; Liters per Minute 4.5 LPM
[2024-03-07] MEDS: ONDANSETRON INJ 4 MG/2 ML VIAL (17:34)
[2024-03-07 17:37] LABS: Hematocrit 39.9 % (37.0-47.0); Mean Corpuscular HGB Conc 32.6 g/dl (32-36); Mean Corpuscular Hemoglobin 34.9 pg (26-34); Platelet Count Result 190 k/mm3 (150-375); Red Blood Count 3.73 M/mm3 (4.2-5.4); Red Cell Distribution Width 14.1 % (11.5-14.5); White Blood Count 17.7 K/mm3 (4.5-10.0)
[2024-03-07 17:48] LABS: Prothrombin Time 14.1 Seconds (11.1-14.7)
[2024-03-07 17:49] LABS: Partial Thromboplastin Time 25.2 Seconds (22.3-36.8)
[2024-03-07 17:52] LABS: Lactic Acid Reflex 2.9 mmol/L (0.7-2.0)
[2024-03-07] MEDS: AZITHROMYCIN 500 MG/NS 250 ML 500 MG/250 ML BAG 250 MG IVPB (17:57)
[2024-03-07 18:01] LABS: Alanine Aminotransferase 15 U/L (6-35); Albumin Level 4.7 g/dL (3.5-5.1); Alkaline Phosphatase 85 U/L (38-126); Anion Gap 11 mmol/L (4-12); Aspartate Amino Transferase 29 U/L (14-36); Band Neutrophils Percent 1 % (0-6); Blood Urea Nitrogen 11 mg/dL (7-17); Calcium 9.2 mg/dL (8.4-10.2); Carbon Dioxide 27 mmol/L (22-30); Chloride 98 mmol/L (98-107); Estimated CRCL calculation 18 ml/min; Estimated Glomerular Filt Rate 19; Glucose 216 mg/dL (65-110); Monocytes Absolute Manual 0.53 K/mm3 (0.1-0.90); Monocytes Percent Manual 3 % (3-9); NT Pro B Type Natriuretic Pept 879 pg/mL (19.9-100); Neutrophils Absolute Manual 16.46 K/mm3 (1.7-7.2); Neutrophils Percent Manual 92 % (46-73); Potassium 4.2 mmol/L (3.4-5.0); Sodium 136 mmol/L (137-145); Total Cells Counted 100
[2024-03-07 18:02] LABS: Anisocytosis 2+; Hypochromasia 1+; Platelet Estimate Adequate (Adequate); Schistocytes None Seen
--- NOTE | 2024-03-07 18:10 | PC.NURSE ---
Patient BP low, EDP made aware and Normal Saline Bolus started at 500ml/hr for a total of 1000ml.
[2024-03-07 18:13] LABS: Influenza A QL RT-PCR Negative (Negative); Influenza B QL RT-PCR Negative (Negative); RSV RNA, RT-PCR Negative (Negative); SARS-CoV-2 RNA PCR Negative (Negative)
--- NOTE | 2024-03-07 18:21 | PC.NURSE ---
EDP reports that second set of blood cultures is not needed prior to antibiotics start due to obtaining blood via arterial stick by EDP.
[2024-03-07] MEDS: SODIUM CHLORIDE 0.9% IV 1,000 ML 500 ML (19:17)
[2024-03-07] MEDS: VANCOMYCIN 1,500 MG/NS 500 ML 1,500 MG/500 ML BAG 250 MG IVPB (19:26)
[2024-03-07] MEDS: ALBUTEROL SULFATE NEB 2.5 MG/3 ML INH INHALATION (19:27)
[2024-03-07] MEDS: IPRATROPIUM BR 0.02% INH SOLN 0.5 MG/2.5 ML VIAL INHALATION (19:27)
[2024-03-07 19:48] LABS: MRSA (PCR) NOT DETECTED (NOT DETECTE)
[2024-03-07 20:35] LABS: Reflex Lactic Acid Yes or No Add Lactic
--- NOTE | 2024-03-07 20:59 | PC.NURSE ---
Received call from ED nurse Magnolia for report on patient. Was asked if I had questions, I asked a couple of questions and was told the information was in the chart.
--- NOTE | 2024-03-07 21:25 | ADMGEN ---
This patient, Trisha Waite, was admitted to IMU Room 231-01 at 2105. Patient/family oriented to hospital policies and general routines including ID bracelet, bed and alarms, visiting hours, pain management, procedures, bathroom and other care routines, personal items, smoking policy, room service/diet, and visiting hours. Information on how to activate the Rapid Response Team has been discussed. Patient/Family are encouraged to report perceived risks to care and to ask questions if they do not understand what they are told or what they should do.
[2024-03-07] MEDS: AMPICILLIN SULB 3 GM/NS 100 ML 3 GM/100 ML VIAL IVPB (21:35)
[2024-03-07 22:05] LABS: Lactic Acid 1.7 mmol/L (0.7-2.0)
--- NOTE | 2024-03-07 22:07 | P.HP_ITS ---
H&P: HPI History of Present Illness Date/Time: 03/07/24 23:15 Chief Complaint: Short of breath during dialysis, vomited in transport to the ER Narrative: 73-year-old female with past medical history of multi-infarct dementia, end- stage renal disease on hemodialysis, COPD, and essential hypertension who presented to the ER via EMS from [facility] where she was reported the receiving dialysis and had almost reaching end of her dialysis session when she developed shortness of breath. Source of information comes from ER records, ER physician report and past medical records. The patient is alert oriented x1 which is baseline. Evidently during hemodialysis the patient seemed to becoming more short of breath. She did have some coughing at that time and coughed up a piece of corn which was then followed by episodes of emesis. EMS reported that she had peaked T-waves on their monitor. Patient was actively having vomiting on arrival to the ER received 4 mg of IV Zofran. Patient was initially afebrile. But after she was admitted to the IMU she did spike a fever to 100.3?. Initially the patient had been tachycardic with EKG confirming sinus tachycardia. On initial arrival to the ER she was are also moderately tachypneic with respiratory rate in the upper 20s to low 30s. X-ray demonstrated possible aspiration. Patient was initially placed on empiric antibiotic therapy with Rocephin azithromycin and vancomycin. Blood cultures were obtained in the ER. Initial blood pressures were low at 80s over 60s. She received 1 L fluid bolus with normalization of blood pressures and improvement in heart rate. The patient cannot provide any review of systems as she is only oriented to her 1st name. The patient is currently at [facility] after recent hospitalization at [place]. She was admitted [place] on the for recrudescence stroke versus recurrent stroke of the basal ganglia/thalamic area with worsening right hemiparesis. MRI performed emergently at that time did not demonstrate acute stroke. Prior to her recent hospitalizations she had been living with her son and ambulating with a walker. Prior baseline was that she required assistance with dressing and bathing as well as other activities of daily living. Patient was evaluated by speech therapy and placed on nectar thick liquids mechanical soft solids with 100% supervision. Review of Systems 2 Review of Systems: ROS unobtainable: Yes unobtainable due to medical condition (Dementia) [facility] Past Medical History Medical History (Updated 03/08/24 @ 02:37 by Argentina Guzman DO) QT prolongation Anemia in chronic kidney disease (CKD) Oropharyngeal dysphagia Gait abnormality Hyperlipidemia Hypertension Depression Nephrolithiasis Osteoarthritis CVA (cerebral vascular accident) with associated short term memory loss COPD (chronic obstructive pulmonary disease) End stage renal disease Surgical History Surgical History (Updated 03/08/24 @ 02:47 by Argentina Guzman DO) History of right shoulder replacement History of left knee replacement Status post creation of arteriovenous fistula Bilateral upper arms with the right being the oldest, there is wound site on the left but the facial itself has no palpable thrill and no bruit on auscultation Family History Family History (Updated 03/08/24 @ 02:48 by Argentina Guzman DO) Other Unknown family medical history Social History Social History (Updated 03/08/24 @ 02:49 by Argentina Guzman DO) Social History: Code status: Full code Healthcare power of employee benefits attorney: Demond (son) Smoking status: Former smoker Tobacco type: cigarettes Smoking end date: 02/28/14 Alcohol intake: never Substance use: never Substance use type: does not use Do You Feel Safe in your Home?: Yes Lack of Transportation: No Lack of Food: Never True Current Housing: I Have Housing Concerned About Future Housing: No Difficulty Paying Gas/Electric Bills: No Difficulty Paying for Meds: No Currently Unemployed: No Education: High School Diploma/GED Difficulty w/ Childcare or Family Care: No Living arrangements: with family Gender identity (if verbalized by the patient): Female Spiritual care concerns: No Meds Home Medications and Allergies Home Medications ?Medication ?Instructions ?Recorded ?Confirmed ?Type aspirin 81 mg tablet,delayed 81 mg PO DAILY 07/24/22 02/29/24 History release (Adult Low Dose Aspirin) cholecalciferol (vitamin D3) 125 125 mcg PO DAILY 01/10/23 02/29/24 History mcg (5,000 unit) tablet gabapentin 100 mg capsule 100 mg PO TID 01/10/23 02/29/24 History hydrocodone 5 mg-acetaminophen 325 1 tablet PO Q6H PRN Pain 01/10/23 02/29/24 History mg tablet sevelamer HCl 800 mg tablet 800 mg PO TID 02/29/24 02/29/24 History hydralazine 25 mg tablet 25 mg PO Q6H PRN SBP greater than 03/08/24 03/08/24 History 160 ipratropium 0.5 mg-albuterol 3 mg 3 ml inhalation BID PRN SOB 03/08/24 03/08/24 History (2.5 mg base)/3 mL nebulization soln pantoprazole 40 mg tablet,delayed 40 mg PO QAM 03/08/24 03/08/24 History release Allergies Allergy/AdvReac Type Severity Reaction Status Date / Time No Known Allergies Allergy Verified 01/12/23 07:34 Vital Signs Vital Signs - 24 hr 03/07/24 16:46 03/07/24 16:46 03/07/24 16:51 Pulse Rate 121 H 129 H Respiratory Rate 25 H 15 Blood Pressure 151/99 H 151/99 H Pulse Oximetry 89 L 91 91 Oxygen Delivery Nasal Cannula Nasal Cannula Oxygen Flow Rate 4 4 03/07/24 17:01 03/07/24 17:33 03/07/24 17:34 Pulse Rate 124 H 123 H 123 H Respiratory Rate 27 H 33 H 29 H Blood Pressure 132/98 H 132/98 H Pulse Oximetry 91 92 Oxygen Delivery Oxygen Flow Rate 03/07/24 17:48 03/07/24 17:53 03/07/24 18:10 Pulse Rate 131 H 134 H 126 H Respiratory Rate 30 H 33 H Blood Pressure 82/63 L Pulse Oximetry 94 Oxygen Delivery Oxygen Flow Rate 03/07/24 18:21 03/07/24 18:36 03/07/24 18:46 Pulse Rate 125 H 117 H 109 H Respiratory Rate 24 H 27 H 25 H Blood Pressure 95/55 L 95/55 L Pulse Oximetry 94 95 95 Oxygen Delivery Oxygen Flow Rate 03/07/24 19:15 03/07/24 19:18 03/07/24 19:18 Pulse Rate 105 H 106 H Respiratory Rate 25 H 22 H Blood Pressure 107/76 107/76 Pulse Oximetry 96 96 96 Oxygen Delivery Nasal Cannula Oxygen Flow Rate 4 03/07/24 19:28 03/07/24 19:38 03/07/24 19:53 Pulse Rate 104 H 94 99 Respiratory Rate 22 H 26 H 29 H Blood Pressure 102/76 Pulse Oximetry 93 Oxygen Delivery Oxygen Flow Rate Exam 2 Narrative: Weight 74 kg BMI 29.8 Const: Other: Chronically ill-appearing, debilitated, no acute distress, lying in the right semi flower position, sleeping soundly HENMT: Other: Head is normocephalic atraumatic, pupils are equal and reactive, positive conjunctival pallor, no scleral icterus, mucous membranes are dry, oral exam was limited but patient appears edentulous, nasal cannula in place patient is on 3 L at the time of my eval Eyes: Other: See above Neck: Other: Supple, nontender Chest: Other: IV in the right breast, dialysis catheter in the left chest, Resp: Other: Crackles at bilateral bases, no increased work of breathing, anterior auscultation limited due to patient positioning Cardio: Other: Regular rate, difficult to palpate peripheral pulses in the arms due to history of prior AV grafts bilaterally, patient has have a slight thrill over the left fistula site but I am unable to auscultate a bruit, no palpable thrill or bruit, 2+ bilateral pedal pulses GI: Other: Soft, obese, nontender, normoactive bowel sounds Back/Spine/Pelvis: Other: Mild to moderate thoracic kyphosis Skin: Other: Generalized pallor, non jaundice, extremities are cool to touch, no mottling Neuro: Other: Patient was sleeping soundly but woke easily to the sound of her name, she cannot verbalize her name to me she will intermittently answer questions yes or no but the accuracy of answers is questionable, she seems to move the left upper extremity more so than the right, the few words that the patient does speak seemed to be clear Extrem: Other: Side of a fold AV fistula right has no bruit or thrill, patient has scabbed incision over the left forearm with a faint thrill on palpation but no bruit on auscultation, she has postoperative/arthritic changes noted bilateral knees, she is generally weak in all extremities but the right seems slightly weaker than the left, no clubbing, cyanosis or edema Psych: Other: confused, cooperative, blunted affect H&P: Results Labs Labs: Laboratory Tests 03/07/24 17:30 03/07/24 17:30 03/07/24 03/07/24 03/07/24 17:24 17:30 17:32 WBC 17.7 H RBC 3.73 L Hgb 13.0 Hct 39.9 MCV 107.0 H MCH 34.9 H MCHC 32.6 RDW 14.1 Plt Count 190 MPV 10.0 Immature Gran % (Auto) Not Reportable Neut % (Auto) Not Reportable Lymph % (Auto) Not Reportable [place] % (Auto) Not Reportable Eos % (Auto) Not Reportable Baso % (Auto) Not Reportable Lymph # (Auto) Not Reportable [place] # (Auto) Not Reportable Eos # (Auto) Not Reportable Baso # (Auto) Not Reportable Abs Immat Gran (auto) Not Reportable Absolute Neuts (auto) Not Reportable Absolute Nucleated RBC Not Reportable Total Counted 100 Neutrophils % (Manual) 92 H Band Neutrophils % 1 Lymphocytes % (Manual) 4.0 L Monocytes % (Manual) 3 Nucleated RBC % Not Reportable Abs Neuts (Manual) 16.46 H Abs Lymphs (Manual) 0.70 L Abs Monocytes (Manual) 0.53 Platelet Estimate Adequate Hypochromasia 1+ Anisocytosis 2+ Schistocytes None seen PT 14.1 INR 1.0 APTT 25.2 Puncture Site Left brachial ABG pH 7.425 ABG pCO2 35.3 ABG pO2 59.4 L ABG PO2/FiO2 Ratio 1.56 ABG HCO3 22.6 ABG O2 Saturation 91.5 L ABG O2 Content 17.6 ABG Base Excess -1.2 A-a Gradient 170.8 Oxyhemoglobin 90.0 Total Hemoglobin 13.9 O2 Delivery Device Nasal cannula O2 Liters/Min 4.5 FiO2 38 Sodium 136 L Potassium 4.2 Chloride 98 Carbon Dioxide 27 Anion Gap 11 BUN 11 D Creatinine 2.50 H Estim Creat Clear Calc 18 Estimated GFR 19 L Glucose 216 H Lactic Acid 2.9 H Calcium 9.2 Total Bilirubin 1.0 AST 29 ALT 15 Alkaline Phosphatase 85 NT-Pro-B Natriuret Pep 879 H Total Protein 8.0 Albumin 4.7 Nasal MRSA (PCR) Influenza A (RT-PCR) Negative Influenza B (RT-PCR) Negative RSV (RT-PCR) Negative SARS-CoV-2 RNA (RT-PCR) Negative 03/07/24 03/07/24 18:34 21:50 WBC RBC Hgb Hct MCV MCH MCHC RDW Plt Count MPV Immature Gran % (Auto) Neut % (Auto) Lymph % (Auto) [place] % (Auto) Eos % (Auto) Baso % (Auto) Lymph # (Auto) [place] # (Auto) Eos # (Auto) Baso # (Auto) Abs Immat Gran (auto) Absolute Neuts (auto) Absolute Nucleated RBC Total Counted Neutrophils % (Manual) Band Neutrophils % Lymphocytes % (Manual) Monocytes % (Manual) Nucleated RBC % Abs Neuts (Manual) Abs Lymphs (Manual) Abs Monocytes (Manual) Platelet Estimate Hypochromasia Anisocytosis Schistocytes PT INR APTT Puncture Site ABG pH ABG pCO2 ABG pO2 ABG PO2/FiO2 Ratio ABG HCO3 ABG O2 Saturation ABG O2 Content ABG Base Excess A-a Gradient Oxyhemoglobin Total Hemoglobin O2 Delivery Device O2 Liters/Min FiO2 Sodium Potassium Chloride Carbon Dioxide Anion Gap BUN Creatinine Estim Creat Clear Calc Estimated GFR Glucose Lactic Acid 1.7 Calcium Total Bilirubin AST ALT Alkaline Phosphatase NT-Pro-B Natriuret Pep Total Protein Albumin Nasal MRSA (PCR) Not detected Influenza A (RT-PCR) Influenza B (RT-PCR) RSV (RT-PCR) SARS-CoV-2 RNA (RT-PCR) Impressions Chest X-Ray 03/07/24 17:55 IMPRESSION: 1. Mild airspace opacities in right lower lung zone, consistent with atelectasis versus pneumonia. EKG: Test Date: 2024-03-07 17:05:21 Measurements Intervals Felch Rate: 127 P: 17 MS: 150 QRS: -81 QRSD: 105 T: 61 QT: 315 QTc: 458 Interpretive Statements SINUS TACHYCARDIA INCOMPLETE RIGHT BUNDLE BRANCH BLOCK [90+ ms QRS DURATION, TERMINAL R IN V1/V2, 40+ ms S IN I/aVL/V4/V5/V6] Poor R wave progression INFERIOR MYOCARDIAL INFARCTION , OF INDETERMINATE AGE [40+ ms Q WAVE AND/OR ST/T ABNORMALITY IN II/aVF] No previous ECG available for comparison Assessment and Plan Assessment and plan (1) Acute hypoxic respiratory failure: Code(s): J96.01 - Acute respiratory failure with hypoxia Status: Acute (2) Aspiration pneumonia: Qualifiers: Aspiration pneumonia type: unspecified Laterality: right Lung location: lower lobe of lung Qualified Code(s): J69.0 - Pneumonitis due to inhalation of food and vomit Code(s): J69.0 - Pneumonitis due to inhalation of food and vomit Status: Acute (3) Sepsis: Qualifiers: Acute respiratory failure type: with hypoxia Sepsis acute organ dysfunction status: with acute organ dysfunction Sepsis type: sepsis due to unspecified organism Severe sepsis acute organ dysfunction type: acute respiratory failure Severe sepsis shock status: without septic shock Qualified Code(s): A41.9 - Sepsis, unspecified organism; R65.20 - Severe sepsis without septic shock; J96.01 - Acute respiratory failure with hypoxia Code(s): A41.9 - Sepsis, unspecified organism Status: Acute (4) Oropharyngeal dysphagia: Code(s): R13.12 - Dysphagia, oropharyngeal phase Status: Acute (5) COPD (chronic obstructive pulmonary disease): Qualifiers: COPD type: COPD with acute lower respiratory infection Qualified Code(s): J44.0 - Chronic obstructive pulmonary disease with (acute) lower respiratory infection Code(s): J44.9 - Chronic obstructive pulmonary disease, unspecified Status: Chronic (6) ESRD (end stage renal disease) on dialysis: Code(s): N18.6 - End stage renal disease; Z99.2 - Dependence on renal dialysis Status: Acute Plan Patient meets sepsis criteria with fever, tachycardia, tachypnea in the setting of acute vomiting with x-ray findings concerning for pneumonia. Patient likely has aspiration pneumonia. She has known longstanding issues with dysphagia. She is on a regular consistency foods diet at rehab with mildly thickened liquids. Is unclear if vomiting resulted in aspiration or if patient may have aspirated her if food earlier in her rehab stay. Will place the patient back on her previous modified diet. The patient is a longer having emesis and abdominal exam is benign. Patient's electrolyte panel is stable and she completed most of her session of dialysis according to ER notes. Nephrology has been consulted. She received dialysis on Fridays. She does have acute hypoxic respiratory failure likely due to aspiration pneumonia complicating underlying chronic COPD. Patient been placed on scheduled nebulizer treatments. She was initially placed on antibiotic therapy with Rocephin azithromycin and vancomycin in the ER. At the time of my evaluation I change antibiotic therapy to Unasyn and vancomycin for better coverage potential anaerobes with suspected aspiration. Will continue vancomycin coverage given patient's recent healthcare exposures. Blood cultures have been obtained and are pending. Patient received 1 L fluid bolus which was adequate fluid resuscitation for patient with end- stage renal disease disease and heart failure. Blood pressures have stabilized and there has been no recurrent hypotension. Blood cultures have been obtained and are pending. Will repeat CBC and electrolyte panel in a.m. Patient has been admitted as observation status. Quality VTE Prophylaxis VTE prophylaxis: pharmacologic ordered (heparin 5000 units subq q12h) Hospitalist MIPS Advance Care Plan I have confirmed that the patient's Advanced Care Plan is present, code status is documented, or surrogate decision maker is listed in patient medical record.: Yes Medication Reconciliation I have utilized all available resources to obtain, update and review the patients current medications (includes all prescriptions, OTC, herbals, cannabis, and nutritional supplements).: Yes
[2024-03-08] VITALS (21 sets, daily range): BP systolic 105–140; BP diastolic 32–85; PULSE 73–104; RESP 16–22; TEMP 36.5–37.9; O2SAT 90–99; BMI 29.8
--- NOTE | 2024-03-08 01:25 | PC.NURSE ---
[facility] from ED called regarding bringing patient up to 231 around 2049. Patient arrived around 2100 to 231.
[2024-03-08 04:47] LABS: Basophils Absolute Auto 0.1 K/mm3 (0.0-0.1); Basophils Percent Auto 0.6 % (0.2-1.2); Eosinophils Absolute Auto 0.1 K/mm3 (0-0.3); Eosinophils Percent Auto 0.7 % (0-4.4); Hemoglobin 10.9 g/dL (12.0-15.0); Immature Granulocyte Absolute 0.03 K/mm3 (0.00-0.031); Immature Granulocyte Percent A 0.3 % (0-0.5); Lymphocytes Absolute Auto 0.88 K/mm3 (0.9-3.2); Lymphocytes Percent Auto 9.3 % (18.3-44.2); Mean Corpuscular HGB Conc 32.1 g/dl (32-36); Mean Corpuscular Hemoglobin 34.7 pg (26-34); Mean Corpuscular Volume 108.3 fl (80-100); Mean Platelet Volume 9.8 fl (7.4-10.4); Monocytes Percent Auto 10.2 % (2.6-8.5); Neutrophils Absolute Auto 7.5 K/mm3 (1.3-6.7); Neutrophils Percent Auto 78.9 % (45.5-73.1); Platelet Count Result 164 k/mm3 (150-375); Red Blood Count 3.14 M/mm3 (4.2-5.4); Red Cell Distribution Width 14.5 % (11.5-14.5); White Blood Count 9.5 K/mm3 (4.5-10.0)
[2024-03-08 05:03] LABS: Albumin Level 3.6 g/dL (3.5-5.1); Anion Gap 7 mmol/L (4-12); Blood Urea Nitrogen 14 mg/dL (7-17); Calcium 8.4 mg/dL (8.4-10.2); Carbon Dioxide 26 mmol/L (22-30); Chloride 106 mmol/L (98-107); Estimated CRCL calculation 12 ml/min; Estimated Glomerular Filt Rate 12; Glucose 112 mg/dL (65-110); Phosphorus 4.2 mg/dL (2.5-4.5); Potassium 4.6 mmol/L (3.4-5.0); Sodium 139 mmol/L (137-145)
[2024-03-08 05:18] LABS: Anisocytosis 1+; Hypochromasia 1+; Macrocytosis 1+ (NORMAL); Platelet Estimate Adequate (Adequate); Schistocytes None Seen
[2024-03-08] MEDS: ALBUTEROL SULFATE NEB 2.5 MG/3 ML INH INHALATION (06:55)
[2024-03-08] MEDS: IPRATROPIUM 0.5 MG/ALBUTEROL SULFATE 2.5 MG AMPUL.NEB 3 ML INHALATION ×3 (06:55→21:07)
[2024-03-08] MEDS: IPRATROPIUM BR 0.02% INH SOLN 0.5 MG/2.5 ML VIAL INHALATION (06:55)
[2024-03-08] MEDS: AMPICILLIN SULB 3 GM/NS 100 ML 3 GM/100 ML VIAL IVPB ×2 (10:28→22:34)
--- NOTE | 2024-03-08 13:42 | PCSTNOTE ---
Please refer to the Modified Barium Swallow Evaluation in the EMR.
--- NOTE | 2024-03-08 14:16 | PM.CNNEP ---
Assessment and Plan Assessment and plan (1) ESRD (end stage renal disease) on dialysis: Code(s): N18.6 - End stage renal disease; Z99.2 - Dependence on renal dialysis Status: Acute Assessment and Plan: Patient has end-stage renal disease. She has been on dialysis for a couple of months. His this started in [facility] in [facility]. She has not been placed in an outpatient unit quite yet. Etiology of end-stage renal disease is most likely due to hypertension she had dialysis yesterday and will get another treatment tomorrow. Will check electrolytes in the morning it does not look she has a whole lot of fluid on so will just take a half a liter or 2 depending on her home pressure. (2) Pneumonia: Code(s): J18.9 - Pneumonia, unspecified organism Status: Acute Assessment and Plan: The patient has infiltrates on the chest x-ray. The patient is on Zithromax and Unasyn. Fever is WBC is okay at 9.5. (3) Recurrent cerebrovascular accidents (CVAs): Code(s): I63.9 - Cerebral infarction, unspecified Status: Acute Assessment and Plan: is in the middle of rehab for this. (4) Anemia: Code(s): D64.9 - Anemia, unspecified Status: Chronic Assessment and Plan: Hemoglobin 10.9. (5) Essential (primary) hypertension: Code(s): I10 - Essential (primary) hypertension Status: Acute Assessment and Plan: Blood pressure under good control History of Present Illness Reason for Consult Consult date: 03/08/24 Chief Complaint Chief complaint: Aspiration pneumonia, hypoxia History of Present Illness Narrative: Trisha is a very pleasant 73-year-old lady who has multiple medical problems including end-stage renal disease on dialysis 3 times a week, hypertension, COPD, and multi-infarct dementia as well as hyperlipidemia, kidney stones, osteoarthritis, stroke, anemia, and CKDMBD. She started out at [facility] because she had a stroke in the base of a clear [facility] care area. She received supportive care and was felt stable so she was sent to acute rehab in [place]. There she was getting rehab but then during dialysis yesterday the patient developed shortness of breath. This continued to worsen so she was sent to the ER [place]. She was admitted to the hospital last night. Today the patient is less short of breath. She is on some oxygen. She had a chest x-ray and was found to possibly have aspirated. There was no sign of excess fluid on the chest x-ray. The patient received some antibiotics. She denies any chest pain. No fevers. Review of Systems Constitutional: Constitutional: Reports no additional constitutional complaints Eyes: Eyes: Reports no additional eye complaints ENT: Reports system reviewed and no additional complaints, except as documented Cardiovascular: Cardiovascular: Reports no additional cardiovascular complaints Respiratory: Respiratory: Reports no additional respiratory complaints Gastrointestinal: Gastrointestinal: Reports no additional gastrointestinal complaints Genitourinary: Genitourinary: Reports no additional female genitourinary complaints Musculoskeletal: Musculoskeletal: Reports no additional musculoskeletal complaints Integumentary/Breasts: Skin/Breast: Reports system reviewed and no additional complaints, except as docu Neurologic: Reports system reviewed and no additional complaints, except as documented Psychiatric: Psychiatric: Reports no additional psychiatric complaints Endocrine: Endocrine: Reports no additional endocrine complaints PMFSH Past Medical History Medical History QT prolongation Anemia in chronic kidney disease (CKD) Gait abnormality Oropharyngeal dysphagia Hyperlipidemia Hypertension Depression Nephrolithiasis Osteoarthritis CVA (cerebral vascular accident) with associated short term memory loss COPD (chronic obstructive pulmonary disease) End stage renal disease Surgical History Surgical History History of right shoulder replacement History of left knee replacement Status post creation of arteriovenous fistula Bilateral upper arms with the right being the oldest, there is wound site on the left but the facial itself has no palpable thrill and no bruit on auscultation Family History Family History Other Unknown family medical history Social History Social History Social History: Code status: Full code [facility] power of associate attorney: Demond (son) Smoking status: Former smoker Tobacco type: cigarettes Smoking end date: 02/28/14 Alcohol intake: never Substance use: never Substance use type: does not use Do You Feel Safe in your Home?: Yes Lack of Transportation: No Lack of Food: Never True Current Housing: I Have Housing Concerned About Future Housing: No Difficulty Paying Gas/Electric Bills: No Difficulty Paying for Meds: No Currently Unemployed: No Education: High School Diploma/GED Difficulty w/ Childcare or Family Care: No Living arrangements: with family Gender identity (if verbalized by the patient): Female Spiritual care concerns: No Meds Home Medications and Allergies Home Medications ?Medication ?Instructions ?Recorded ?Confirmed ?Type aspirin 81 mg tablet,delayed 81 mg PO DAILY 07/24/22 03/08/24 History release (Adult Low Dose Aspirin) cholecalciferol (vitamin D3) 125 125 mcg PO DAILY 01/10/23 03/08/24 History mcg (5,000 unit) tablet gabapentin 100 mg capsule 100 mg PO TID 01/10/23 03/08/24 History hydrocodone 5 mg-acetaminophen 325 1 tablet PO Q6H PRN Pain 01/10/23 03/08/24 History mg tablet sevelamer HCl 800 mg tablet 800 mg PO TID 02/29/24 03/08/24 History hydralazine 25 mg tablet 25 mg PO Q6H PRN SBP greater than 03/08/24 03/08/24 History 160 ipratropium 0.5 mg-albuterol 3 mg 3 ml inhalation BID PRN SOB 03/08/24 03/08/24 History (2.5 mg base)/3 mL nebulization soln pantoprazole 40 mg tablet,delayed 40 mg PO QAM 03/08/24 03/08/24 History release Allergies Allergy/AdvReac Type Severity Reaction Status Date / Time No Known Allergies Allergy Verified 01/12/23 07:34 Vital Signs Vital Signs - 24 hr 03/07/24 16:46 03/07/24 16:46 03/07/24 16:51 Temperature Pulse Rate 121 H 129 H Respiratory Rate 25 H 15 Blood Pressure 151/99 H 151/99 H Pulse Oximetry 89 L 91 91 Oxygen Delivery Nasal Cannula Nasal Cannula Oxygen Flow Rate 4 4 03/07/24 17:01 03/07/24 17:33 03/07/24 17:34 Temperature Pulse Rate 124 H 123 H 123 H Respiratory Rate 27 H 33 H 29 H Blood Pressure 132/98 H 132/98 H Pulse Oximetry 91 92 Oxygen Delivery Oxygen Flow Rate 03/07/24 17:48 03/07/24 17:53 03/07/24 18:10 Temperature Pulse Rate 131 H 134 H 126 H Respiratory Rate 30 H 33 H Blood Pressure 82/63 L Pulse Oximetry 94 Oxygen Delivery Oxygen Flow Rate 03/07/24 18:21 03/07/24 18:36 03/07/24 18:46 Temperature Pulse Rate 125 H 117 H 109 H Respiratory Rate 24 H 27 H 25 H Blood Pressure 95/55 L 95/55 L Pulse Oximetry 94 95 95 Oxygen Delivery Oxygen Flow Rate 03/07/24 19:15 03/07/24 19:18 03/07/24 19:18 Temperature Pulse Rate 105 H 106 H Respiratory Rate 25 H 22 H Blood Pressure 107/76 107/76 Pulse Oximetry 96 96 96 Oxygen Delivery Nasal Cannula Oxygen Flow Rate 4 03/07/24 19:28 03/07/24 19:38 03/07/24 19:53 Temperature Pulse Rate 104 H 94 99 Respiratory Rate 22 H 26 H 29 H Blood Pressure 102/76 Pulse Oximetry 93 Oxygen Delivery Oxygen Flow Rate 03/07/24 22:00 03/08/24 00:00 03/08/24 00:00 Temperature 100.3 F H Pulse Rate 87 93 85 Respiratory Rate 22 H Blood Pressure 105/62 Pulse Oximetry 90 Oxygen Delivery Oxygen Flow Rate 03/08/24 00:30 03/08/24 02:00 03/08/24 04:00 Temperature Pulse Rate 83 Respiratory Rate Blood Pressure Pulse Oximetry 95 96 Oxygen Delivery Nasal Cannula Nasal Cannula Oxygen Flow Rate 3 3 03/08/24 04:00 03/08/24 04:22 03/08/24 06:00 Temperature 97.7 F Pulse Rate 84 77 73 Respiratory Rate 22 H Blood Pressure 140/53 L Pulse Oximetry 99 Oxygen Delivery Oxygen Flow Rate 03/08/24 06:55 03/08/24 06:55 03/08/24 07:05 Temperature Pulse Rate 104 H 104 H 103 H Respiratory Rate 18 18 20 Blood Pressure Pulse Oximetry 95 Oxygen Delivery Nasal Cannula Oxygen Flow Rate 3 03/08/24 08:00 03/08/24 08:00 03/08/24 10:00 Temperature 98.3 F Pulse Rate 82 79 86 Respiratory Rate 20 Blood Pressure 118/76 Pulse Oximetry 96 Oxygen Delivery Oxygen Flow Rate 03/08/24 12:00 03/08/24 13:00 03/08/24 13:10 Temperature 98.2 F Pulse Rate 85 77 80 Respiratory Rate 16 18 18 Blood Pressure 119/71 Pulse Oximetry 95 Oxygen Delivery Oxygen Flow Rate Exam Narrative: Exam Narrative: Well developed well-nourished female in no acute distress Skin is warm and dry without rash Head normocephalic atraumatic Eyes normal sclerae and conjunctivae Mouth normal lips teeth and gums Neck no nodes no thyromegaly no carotid bruits Axillae no nodes Back no CVA tenderness Lungs symmetric and clear to auscultation and percussion Heart regular rate and rhythm without rub or gallop Abdomen bowel sounds positive soft nontender, no HSM, masses, or bruits. Extremities no cyanosis, clubbing, or edema Pulses 2+ equal in radial arteries Psychological not anxious or depressed Neuro alert and oriented x3 motor 5/5 cranial nerves 2-12 intact reflexes 2+ and equal in the biceps and patellar tendons cerebellar normal rapid alternating movements Results Lab Results 03/08/24 04:40 03/08/24 04:40 Lab results: Most recent lab results ABG pH 7.425 (7.350-7.450) 03/07/24 17:24 ABG pCO2 35.3 mmHg (35.0-45.0) 03/07/24 17:24 ABG pO2 59.4 mmHg (80.0-100.0) L 03/07/24 17:24 ABG HCO3 22.6 mEq/l (22.0-26.0) 03/07/24 17:24 ABG O2 Saturation 91.5 % (95.0-100.0) L 03/07/24 17:24 Calcium 8.4 mg/dL (8.4-10.2) 03/08/24 04:40 Phosphorus 4.2 mg/dL (2.5-4.5) 03/08/24 04:40
--- NOTE | 2024-03-08 16:43 | PM.IMPN ---
Progress Note: A&P Assessment and Plan (1) Sepsis: Qualifiers: Sepsis type: sepsis due to unspecified organism Sepsis acute organ dysfunction status: with acute organ dysfunction Severe sepsis acute organ dysfunction type: acute respiratory failure Acute respiratory failure type: with hypoxia Severe sepsis shock status: without septic shock Qualified Code(s): A41.9 - Sepsis, unspecified organism; R65.20 - Severe sepsis without septic shock; J96.01 - Acute respiratory failure with hypoxia Code(s): A41.9 - Sepsis, unspecified organism Status: Acute Assessment and Plan: Patient meets sepsis criteria with fever, tachycardia, tachypnea and transisent HoTN in the setting of acute vomiting with x-ray findings concerning for pneumonia. Patient likely has aspiration pneumonia. Patient recieved 1L fluid bolus since ESRD. Fever curve is better. WBC down to normal. BCx NGTD She was initially placed on Rocephin, azithromycin and vancomycin in the ER but changed to Unasyn and vancomycin MRSA nasal swab negative so will stop Vanc. Continue Unasyn (2) Acute hypoxic respiratory failure: Code(s): J96.01 - Acute respiratory failure with hypoxia Status: Acute Assessment and Plan: Patient does not wear home O2. ABG showing 7,42/35/59on 4.5L. Related to aspiration. Wean O2 as toerlated (3) Aspiration pneumonia: Qualifiers: Aspiration pneumonia type: unspecified Laterality: right Lung location: lower lobe of lung Qualified Code(s): J69.0 - Pneumonitis due to inhalation of food and vomit Code(s): J69.0 - Pneumonitis due to inhalation of food and vomit Status: Acute Assessment and Plan: She has known longstanding issues with dysphagia. She was on a regular consistency food diet with mildly thickened liquids at rehab but changed to thin liquids just prior to undergoing dialysis. Change in diet could be the trigger that caused her recurrent aspiration. MBS here showing she need soft and bite sized level 6 and mildly thickened liquids Leval 2. Diet resumed. Speech to work with her but she may not be able to retain information due to her dementia. (4) Oropharyngeal dysphagia: Code(s): R13.12 - Dysphagia, oropharyngeal phase Status: Acute Assessment and Plan: As above (5) End stage renal disease: Code(s): N18.6 - End stage renal disease Status: Chronic Assessment and Plan: Electrolyte panel is stable and she completed most of her session of dialysis prior to admission according to ER notes. Nephrology consulted and appreciate their input. Continue dialysis Sunday schedule. Left UE fistula noted but no thrill or bruit. Check Left UE ultrasound (6) COPD (chronic obstructive pulmonary disease): Qualifiers: COPD type: COPD with acute lower respiratory infection Qualified Code(s): J44.0 - Chronic obstructive pulmonary disease with (acute) lower respiratory infection Code(s): J44.9 - Chronic obstructive pulmonary disease, unspecified Status: Chronic Assessment and Plan: Stable. No wheezing Follow (7) Recurrent cerebrovascular accidents (CVAs): Code(s): I63.9 - Cerebral infarction, unspecified Status: Acute Assessment and Plan: Patient was admitted to [place] on 02/22 for right sided weakness but not found to have new CVA by MRI. She has a history of prior stroke and felt her symptoms were related to old CVAs. Patient with dementia, possibly vascular in nature. Continue ASA. Not on statin therapy. Add Lipitor Plan DVT prophyalxis - SCDs Code status - full Subjective Date/time seen: 03/08/24 16:43 Interval history: 73yo female with multi-infarct dementia, ESRD on hemodialysis, COPD, and HTN who presented to the ER via EMS from [facility] where she was receiving dialysis and had almost reaching end of her dialysis session when she developed shortness of breath. Patient is alert but confused. She denies CP or SOB. She does have a cough. Review of Systems Review of Systems: ROS unobtainable: Yes unobtainable due to mental status Exam Narrative: Tm100.3 97.8 122/85 90 20 95% 3L Gen - NARD Chest - inspiratory and expiratory rhonchi. Left upper chest with tunneled HD catheter in place CV - RRR S1/S2. Tele showing no significant dysrhythmias Abd - Soft, NT/ND, Positive BS Ext - No pedal edema. Left UE incision with dark eshcar but dry and without evidence of cellulitis. No bruit or thrill Neuro - Alert but confused Psych - Nml mood and affect Skin - Warm and dry. left upper chest dried abrasion (cranially to the tunneled catheter) Objective Data Vital Signs Vital Signs: Vital Signs - 24 hr 03/07/24 16:46 03/07/24 16:46 03/07/24 16:51 Temperature Pulse Rate 121 H 129 H Respiratory Rate 25 H 15 Blood Pressure 151/99 H 151/99 H Pulse Oximetry 89 L 91 91 Oxygen Delivery Nasal Cannula Nasal Cannula Oxygen Flow Rate 4 4 03/07/24 17:01 03/07/24 17:33 03/07/24 17:34 Temperature Pulse Rate 124 H 123 H 123 H Respiratory Rate 27 H 33 H 29 H Blood Pressure 132/98 H 132/98 H Pulse Oximetry 91 92 Oxygen Delivery Oxygen Flow Rate 03/07/24 17:48 03/07/24 17:53 03/07/24 18:10 Temperature Pulse Rate 131 H 134 H 126 H Respiratory Rate 30 H 33 H Blood Pressure 82/63 L Pulse Oximetry 94 Oxygen Delivery Oxygen Flow Rate 03/07/24 18:21 03/07/24 18:36 03/07/24 18:46 Temperature Pulse Rate 125 H 117 H 109 H Respiratory Rate 24 H 27 H 25 H Blood Pressure 95/55 L 95/55 L Pulse Oximetry 94 95 95 Oxygen Delivery Oxygen Flow Rate 03/07/24 19:15 03/07/24 19:18 03/07/24 19:18 Temperature Pulse Rate 105 H 106 H Respiratory Rate 25 H 22 H Blood Pressure 107/76 107/76 Pulse Oximetry 96 96 96 Oxygen Delivery Nasal Cannula Oxygen Flow Rate 4 03/07/24 19:28 03/07/24 19:38 03/07/24 19:53 Temperature Pulse Rate 104 H 94 99 Respiratory Rate 22 H 26 H 29 H Blood Pressure 102/76 Pulse Oximetry 93 Oxygen Delivery Oxygen Flow Rate 03/07/24 22:00 03/08/24 00:00 03/08/24 00:00 Temperature 100.3 F H Pulse Rate 87 93 85 Respiratory Rate 22 H Blood Pressure 105/62 Pulse Oximetry 90 Oxygen Delivery Oxygen Flow Rate 03/08/24 00:30 03/08/24 02:00 03/08/24 04:00 Temperature Pulse Rate 83 Respiratory Rate Blood Pressure Pulse Oximetry 95 96 Oxygen Delivery Nasal Cannula Nasal Cannula Oxygen Flow Rate 3 3 03/08/24 04:00 03/08/24 04:22 03/08/24 06:00 Temperature 97.7 F Pulse Rate 84 77 73 Respiratory Rate 22 H Blood Pressure 140/53 L Pulse Oximetry 99 Oxygen Delivery Oxygen Flow Rate 03/08/24 06:55 03/08/24 06:55 03/08/24 07:05 Temperature Pulse Rate 104 H 104 H 103 H Respiratory Rate 18 18 20 Blood Pressure Pulse Oximetry 95 Oxygen Delivery Nasal Cannula Oxygen Flow Rate 3 03/08/24 08:00 03/08/24 08:00 03/08/24 10:00 Temperature 98.3 F Pulse Rate 82 79 86 Respiratory Rate 20 Blood Pressure 118/76 Pulse Oximetry 96 Oxygen Delivery Oxygen Flow Rate 03/08/24 12:00 03/08/24 12:00 03/08/24 13:00 Temperature 98.2 F Pulse Rate 85 84 77 Respiratory Rate 16 18 Blood Pressure 119/71 Pulse Oximetry 95 Oxygen Delivery Oxygen Flow Rate 03/08/24 13:10 03/08/24 14:00 03/08/24 16:00 Temperature 97.8 F Pulse Rate 80 86 90 Respiratory Rate 18 20 Blood Pressure 122/85 Pulse Oximetry 95 Oxygen Delivery Oxygen Flow Rate 03/08/24 16:00 Temperature Pulse Rate 90 Respiratory Rate Blood Pressure Pulse Oximetry Oxygen Delivery Oxygen Flow Rate Intake/Output Intake/Output: Intake & Output 03/05/24 03/06/24 03/07/24 03/08/24 23:59 23:59 23:59 23:59 Intake Total 1400 Balance 1400 Meds/Results Medications: Active Medications Generic Name Dose Route Start Last Admin Trade Name Freq PRN Reason Stop Dose Admin Albuterol/Ipratropium 3 ml 03/08/24 02:00 03/08/24 13:00 Ipratropium 0.5 Mg/Albuterol Sulfate 2.5 Mg Ampul.Neb 3 Ml INHALATION 3 ml Q6HRT VARGHESE Administration Aspirin 81 mg 03/08/24 09:00 03/08/24 10:27 Aspirin 81 Mg Enteric Tablet PO Not Given DAILY VARGHESE Gabapentin 100 mg 03/08/24 09:00 03/08/24 14:21 Gabapentin 100 Mg Capsule PO Not Given TID VARGHESE Ampicillin Sodium/Sulbactam Sodium 3 gm in 100 mls @ 200 mls/hr 03/08/24 10:00 03/08/24 10:28 Unasyn 3 Gm/Ns 100 Ml IVPB 200 mls/hr Q12H VARGHESE Administration Albumin Human 50 mls @ 999 mls/hr 03/08/24 15:32 Albutein IVPB 03/09/24 15:31 Q10M PRN HYPOTENSION Pantoprazole Sodium 40 mg 03/08/24 09:00 03/08/24 10:27 Pantoprazole 40 Mg Tablet PO Not Given QAM VARGHESE Sevelamer Carbonate 800 mg 03/08/24 17:00 Sevelamer Carbonate 800 Mg Tablet PO TIDWM VARGHESE Vitamin D 5,000 units 03/08/24 09:00 03/08/24 10:27 Cholecalciferol 5,000 Units Tablet BY MOUTH Not Given DAILY [facility] Radiology Results: ITS Impressions Chest X-Ray 03/07/24 17:55 IMPRESSION: 1. Mild airspace opacities in right lower lung zone, consistent with atelectasis versus pneumonia. Modified Barium Swallow 03/08/24 12:32 IMPRESSION: 1. No laryngeal penetration or aspiration. 2. Please refer to the speech therapy report for recommendations. Labs Labs: Laboratory Results - last 24 hr 03/07/24 03/07/24 03/07/24 17:24 17:30 17:32 WBC 17.7 H RBC 3.73 L Hgb 13.0 Hct 39.9 MCV 107.0 H MCH 34.9 H MCHC 32.6 RDW 14.1 Plt Count 190 MPV 10.0 Immature Gran % (Auto) Not Reportable Neut % (Auto) Not Reportable Lymph % (Auto) Not Reportable Hawkins % (Auto) Not Reportable Eos % (Auto) Not Reportable Baso % (Auto) Not Reportable Lymph # (Auto) Not Reportable Hawkins # (Auto) Not Reportable Eos # (Auto) Not Reportable Baso # (Auto) Not Reportable Abs Immat Gran (auto) Not Reportable Absolute Neuts (auto) Not Reportable Absolute Nucleated RBC Not Reportable Total Counted 100 Neutrophils % (Manual) 92 H Band Neutrophils % 1 Lymphocytes % (Manual) 4.0 L Monocytes % (Manual) 3 Nucleated RBC % Not Reportable Abs Neuts (Manual) 16.46 H Abs Lymphs (Manual) 0.70 L Abs Monocytes (Manual) 0.53 Platelet Estimate Adequate Hypochromasia 1+ Anisocytosis 2+ Macrocytosis Schistocytes None seen PT 14.1 INR 1.0 APTT 25.2 Puncture Site Left brachial ABG pH 7.425 ABG pCO2 35.3 ABG pO2 59.4 L ABG PO2/FiO2 Ratio 1.56 ABG HCO3 22.6 ABG O2 Saturation 91.5 L ABG O2 Content 17.6 ABG Base Excess -1.2 A-a Gradient 170.8 Oxyhemoglobin 90.0 Total Hemoglobin 13.9 O2 Delivery Device Nasal cannula O2 Liters/Min 4.5 FiO2 38 Sodium 136 L Potassium 4.2 Chloride 98 Carbon Dioxide 27 Anion Gap 11 BUN 11 D Creatinine 2.50 H Estim Creat Clear Calc 18 Estimated GFR 19 L Glucose 216 H Lactic Acid 2.9 H Calcium 9.2 Phosphorus Total Bilirubin 1.0 AST 29 ALT 15 Alkaline Phosphatase 85 NT-Pro-B Natriuret Pep 879 H Total Protein 8.0 Albumin 4.7 Nasal MRSA (PCR) Influenza A (RT-PCR) Negative Influenza B (RT-PCR) Negative RSV (RT-PCR) Negative SARS-CoV-2 RNA (RT-PCR) Negative 03/07/24 03/07/24 03/08/24 18:34 21:50 04:40 WBC 9.5 RBC 3.14 L Hgb 10.9 L Hct 34.0 L MCV 108.3 H MCH 34.7 H MCHC 32.1 RDW 14.5 Plt Count 164 MPV 9.8 Immature Gran % (Auto) 0.3 Neut % (Auto) 78.9 H Lymph % (Auto) 9.3 L Hawkins % (Auto) 10.2 H Eos % (Auto) 0.7 Baso % (Auto) 0.6 Lymph # (Auto) 0.88 L Hawkins # (Auto) 1.0 H Eos # (Auto) 0.1 Baso # (Auto) 0.1 Abs Immat Gran (auto) 0.03 Absolute Neuts (auto) 7.5 H Absolute Nucleated RBC 0.000 Total Counted Neutrophils % (Manual) Band Neutrophils % Lymphocytes % (Manual) Monocytes % (Manual) Nucleated RBC % 0.0 Abs Neuts (Manual) Abs Lymphs (Manual) Abs Monocytes (Manual) Platelet Estimate Adequate Hypochromasia 1+ Anisocytosis 1+ Macrocytosis 1+ Schistocytes None seen PT INR APTT Puncture Site ABG pH ABG pCO2 ABG pO2 ABG PO2/FiO2 Ratio ABG HCO3 ABG O2 Saturation ABG O2 Content ABG Base Excess A-a Gradient Oxyhemoglobin Total Hemoglobin O2 Delivery Device O2 Liters/Min FiO2 Sodium 139 Potassium 4.6 Chloride 106 Carbon Dioxide 26 Anion Gap 7 BUN 14 Creatinine 3.60 H Estim Creat Clear Calc 12 Estimated GFR 12 L Glucose 112 H Lactic Acid 1.7 Calcium 8.4 Phosphorus 4.2 Total Bilirubin AST ALT Alkaline Phosphatase NT-Pro-B Natriuret Pep Total Protein Albumin 3.6 Nasal MRSA (PCR) Not detected Influenza A (RT-PCR) Influenza B (RT-PCR) RSV (RT-PCR) SARS-CoV-2 RNA (RT-PCR)
[2024-03-08] MEDS: GABAPENTIN 100 MG CAPSULE PO (17:16)
[2024-03-08] MEDS: SEVELAMER CARBONATE 800 MG TABLET PO (17:17)
[2024-03-08] MEDS: WATER FOR IRRIGATION, STERILE 1,000 ML BOTTLE 1000 ML (22:30)
[2024-03-09] VITALS (35 sets, daily range): BP systolic 90–138; BP diastolic 38–80; PULSE 69–104; RESP 14–20; TEMP 36.5–37.6; O2SAT 90–99
[2024-03-09] MEDS: IPRATROPIUM 0.5 MG/ALBUTEROL SULFATE 2.5 MG AMPUL.NEB 3 ML INHALATION ×3 (02:31→15:53)
[2024-03-09 05:07] LABS: Basophils Absolute Auto 0.1 K/mm3 (0.0-0.1); Basophils Percent Auto 0.9 % (0.2-1.2); Eosinophils Absolute Auto 0.4 K/mm3 (0-0.3); Eosinophils Percent Auto 5.7 % (0-4.4); Hematocrit 32.6 % (37.0-47.0); Hemoglobin 10.1 g/dL (12.0-15.0); Immature Granulocyte Absolute 0.04 K/mm3 (0.00-0.031); Immature Granulocyte Percent A 0.6 % (0-0.5); Lymphocytes Absolute Auto 0.97 K/mm3 (0.9-3.2); Lymphocytes Percent Auto 13.9 % (18.3-44.2); Mean Corpuscular Hemoglobin 34.1 pg (26-34); Mean Corpuscular Volume 110.1 fl (80-100); Mean Platelet Volume 9.9 fl (7.4-10.4); Monocytes Absolute Auto 0.8 K/mm3 (0.1-0.6); Monocytes Percent Auto 10.9 % (2.6-8.5); Neutrophils Absolute Auto 4.7 K/mm3 (1.3-6.7); Platelet Count Result 175 k/mm3 (150-375); Red Blood Count 2.96 M/mm3 (4.2-5.4); Red Cell Distribution Width 14.3 % (11.5-14.5)
[2024-03-09 05:24] LABS: Albumin Level 3.6 g/dL (3.5-5.1); Anion Gap 7 mmol/L (4-12); Blood Urea Nitrogen 20 mg/dL (7-17); Calcium 8.9 mg/dL (8.4-10.2); Carbon Dioxide 25 mmol/L (22-30); Chloride 109 mmol/L (98-107); Estimated CRCL calculation 8 ml/min; Estimated Glomerular Filt Rate 7; Glucose 99 mg/dL (65-110); Phosphorus 4.9 mg/dL (2.5-4.5); Potassium 3.9 mmol/L (3.4-5.0); Sodium 141 mmol/L (137-145)
[2024-03-09 06:24] LABS: Hepatitis B Surface Antigen Negative (Negative)
[2024-03-09 06:52] LABS: Hepatitis B Surface Anti Res Positive
--- NOTE | 2024-03-09 09:48 | PM.PNNEP ---
Progress Note: A&P Assessment and Plan (1) ESRD (end stage renal disease) on dialysis: Code(s): N18.6 - End stage renal disease; Z99.2 - Dependence on renal dialysis Status: Acute Assessment and Plan: Patient has end-stage renal disease. She has been on dialysis for a couple of months. Etiology of end-stage renal disease is most likely due to hypertension She is getting dialysis now. Will try for 1-2 L as tolerated. She does not look like she has a whole lot of fluid on. (2) Pneumonia: Code(s): J18.9 - Pneumonia, unspecified organism Status: Acute Assessment and Plan: The patient has infiltrates on the chest x-ray. The patient is on Zithromax and Unasyn. No cough for shortness of breath White count is normal and afebrile (3) Recurrent cerebrovascular accidents (CVAs): Code(s): I63.9 - Cerebral infarction, unspecified Status: Acute Assessment and Plan: is in the middle of rehab for this. (4) Anemia: Code(s): D64.9 - Anemia, unspecified Status: Chronic Assessment and Plan: Hemoglobin 10.1. (5) Essential (primary) hypertension: Code(s): I10 - Essential (primary) hypertension Status: Acute Assessment and Plan: Blood pressure under good control Subjective Date/time seen: 03/09/24 09:48 Interval history: Patient is feeling okay today. Trying to eat more but not eating very much. Patient is on dialysis and tolerating it well. She was seen at 9:30 a.m. Review of Systems Cardiovascular: Cardiovascular: Reports no additional cardiovascular complaints Respiratory: Respiratory: Reports no additional respiratory complaints Gastrointestinal: Gastrointestinal: Reports no additional gastrointestinal complaints Genitourinary: Genitourinary: Reports no additional female genitourinary complaints Exam Narrative: WDWN in NAD skin no rash head ncat lungs clear cor reg no rub abd BS+ nontender and soft ext no edema. Objective Data Vital Signs Vital Signs: Vital Signs - 24 hr 03/08/24 10:00 03/08/24 12:00 03/08/24 12:00 Temperature 98.2 F Pulse Rate 86 85 84 Respiratory Rate 16 Blood Pressure 119/71 Pulse Oximetry 95 Oxygen Delivery Oxygen Flow Rate 03/08/24 13:00 03/08/24 13:10 03/08/24 14:00 Temperature Pulse Rate 77 80 86 Respiratory Rate 18 18 Blood Pressure Pulse Oximetry Oxygen Delivery Oxygen Flow Rate 03/08/24 16:00 03/08/24 16:00 03/08/24 18:00 Temperature 97.8 F Pulse Rate 90 90 99 Respiratory Rate 20 Blood Pressure 122/85 Pulse Oximetry 95 Oxygen Delivery Oxygen Flow Rate 03/08/24 20:00 03/08/24 20:00 03/08/24 21:08 Temperature Pulse Rate 79 89 Respiratory Rate 20 Blood Pressure Pulse Oximetry 90 Oxygen Delivery Nasal Cannula Oxygen Flow Rate 3 03/08/24 21:17 03/08/24 22:00 03/08/24 22:27 Temperature 97.8 F Pulse Rate 90 98 89 Respiratory Rate 20 20 Blood Pressure 125/32 L Pulse Oximetry Oxygen Delivery Oxygen Flow Rate 03/09/24 00:00 03/09/24 00:00 03/09/24 01:06 Temperature 97.8 F Pulse Rate 84 84 Respiratory Rate 20 Blood Pressure 90/52 L Pulse Oximetry 99 95 Oxygen Delivery High Flow Nasal Cannula Oxygen Flow Rate 6 03/09/24 02:00 03/09/24 02:32 03/09/24 02:45 Temperature Pulse Rate 76 80 86 Respiratory Rate 20 20 Blood Pressure Pulse Oximetry Oxygen Delivery Oxygen Flow Rate 03/09/24 04:00 03/09/24 04:00 03/09/24 05:48 Temperature 97.7 F Pulse Rate 86 96 Respiratory Rate 20 Blood Pressure 94/58 L Pulse Oximetry 96 97 Oxygen Delivery High Flow Nasal Cannula Oxygen Flow Rate 6 03/09/24 07:24 Temperature 98.5 F Pulse Rate 89 Respiratory Rate 16 Blood Pressure 122/45 L Pulse Oximetry 92 Oxygen Delivery Oxygen Flow Rate Intake/Output Intake/Output: Intake & Output 03/06/24 03/07/24 03/08/24 03/09/24 23:59 23:59 23:59 23:59 Intake Total 1400 450 240 Output Total 1 Balance 1400 450 239 Meds/Results Medications: Active Medications Generic Name Dose Route Start Last Admin Trade Name Freq PRN Reason Stop Dose Admin Albuterol/Ipratropium 3 ml 03/08/24 02:00 03/09/24 02:31 Ipratropium 0.5 Mg/Albuterol Sulfate 2.5 Mg Ampul.Neb 3 Ml INHALATION 3 ml Q6HRT VARGHESE Administration Aspirin 81 mg 03/08/24 09:00 03/08/24 10:27 Aspirin 81 Mg Enteric Tablet PO Not Given DAILY VARGHESE Atorvastatin Calcium 40 mg 03/09/24 09:00 Atorvastatin 40 Mg Tablet PO DAILY VARGHESE Gabapentin 100 mg 03/08/24 09:00 03/08/24 17:16 Gabapentin 100 Mg Capsule PO 100 mg TID VARGHESE Administration Ampicillin Sodium/Sulbactam Sodium 3 gm in 100 mls @ 200 mls/hr 03/08/24 10:00 03/08/24 23:05 Unasyn 3 Gm/Ns 100 Ml IVPB Infused Q12H VARGHESE Infusion Albumin Human 50 mls @ 999 mls/hr 03/08/24 15:32 Albutein IVPB 03/09/24 15:31 Q10M PRN HYPOTENSION Pantoprazole Sodium 40 mg 03/08/24 09:00 03/08/24 10:27 Pantoprazole 40 Mg Tablet PO Not Given QAM VARGHESE Sevelamer Carbonate 800 mg 03/08/24 17:00 03/08/24 17:17 Sevelamer Carbonate 800 Mg Tablet PO 800 mg TIDWM VARGHESE Administration Vitamin D 5,000 units 03/08/24 09:00 03/08/24 10:27 Cholecalciferol 5,000 Units Tablet BY MOUTH Not Given DAILY [facility] Radiology Results: ITS Impressions Chest X-Ray 03/07/24 17:55 IMPRESSION: 1. Mild airspace opacities in right lower lung zone, consistent with atelectasis versus pneumonia. Modified Barium Swallow 03/08/24 12:32 IMPRESSION: 1. No laryngeal penetration or aspiration. 2. Please refer to the speech therapy report for recommendations. Labs Labs: Laboratory Results - last 24 hr 03/09/24 04:55 WBC 7.0 RBC 2.96 L Hgb 10.1 L Hct 32.6 L MCV 110.1 H MCH 34.1 H MCHC 31.0 L RDW 14.3 Plt Count 175 MPV 9.9 Immature Gran % (Auto) 0.6 H Neut % (Auto) 68.0 Lymph % (Auto) 13.9 L [place] % (Auto) 10.9 H Eos % (Auto) 5.7 H Baso % (Auto) 0.9 Lymph # (Auto) 0.97 [place] # (Auto) 0.8 H Eos # (Auto) 0.4 H Baso # (Auto) 0.1 Abs Immat Gran (auto) 0.04 H Absolute Neuts (auto) 4.7 Absolute Nucleated RBC 0.000 Nucleated RBC % 0.0 Sodium 141 Potassium 3.9 Chloride 109 H Carbon Dioxide 25 Anion Gap 7 BUN 20 H Creatinine 6.10 H Estim Creat Clear Calc 8 Estimated GFR 7 L Glucose 99 Calcium 8.9 Phosphorus 4.9 H Albumin 3.6 Hep Bs Antigen Negative Hep Bs Antibody Positive
[2024-03-09] MEDS: EPOETIN ALFA-EPBX 10,000 UNITS/ML VIAL 10000 UNITS IV PUSH (11:49)
[2024-03-09] MEDS: HEPARIN SODIUM 1,000 UNITS/ML VIAL 6000 UNITS IV PUSH (13:06)
[2024-03-09] MEDS: ATORVASTATIN 40 MG TABLET PO (14:11)
[2024-03-09] MEDS: GABAPENTIN 100 MG CAPSULE PO (14:11)
[2024-03-09] MEDS: CHOLECALCIFEROL 5,000 UNITS TABLET 5000 UNITS BY MOUTH (14:11)
[2024-03-09] MEDS: SEVELAMER CARBONATE 800 MG TABLET PO (14:11)
[2024-03-09] MEDS: PANTOPRAZOLE 40 MG TABLET PO (14:11)
[2024-03-09] MEDS: ASPIRIN 81 MG ENTERIC TABLET PO (14:11)
--- NOTE | 2024-03-09 17:12 | P.PNIM_ITS ---
Progress Note: A&P Assessment and Plan (1) Sepsis: Qualifiers: Acute respiratory failure type: with hypoxia Sepsis acute organ dysfunction status: with acute organ dysfunction Sepsis type: sepsis due to unspecified organism Severe sepsis acute organ dysfunction type: acute respiratory failure Severe sepsis shock status: without septic shock Qualified Code(s): A41.9 - Sepsis, unspecified organism; R65.20 - Severe sepsis without septic shock; J96.01 - Acute respiratory failure with hypoxia Code(s): A41.9 - Sepsis, unspecified organism Status: Acute Assessment and Plan: Patient meets sepsis criteria with fever, tachycardia, tachypnea and transisent HoTN in the setting of acute vomiting with x-ray findings concerning for pneumonia. Patient likely has aspiration pneumonia. Patient recieved 1L fluid bolus since ESRD. Fever curve is better. WBC down to normal. BCx NGTD She was initially placed on Rocephin, azithromycin and vancomycin in the ER but changed to Unasyn and vancomycin MRSA nasal swab negative so Vancomycin stopped. Continue Unasyn. Wean O2 as tolerated. (2) Acute hypoxic respiratory failure: Code(s): J96.01 - Acute respiratory failure with hypoxia Status: Acute Assessment and Plan: Patient does not wear home O2. ABG showing 7,42/35/59 on 4.5L. Related to aspiration. Still requring 4L O2. Contineu Duhaileybs Wean O2 as tolerated (3) Aspiration pneumonia: Qualifiers: Aspiration pneumonia type: unspecified Laterality: right Lung location: lower lobe of lung Qualified Code(s): J69.0 - Pneumonitis due to inhalation of food and vomit Code(s): J69.0 - Pneumonitis due to inhalation of food and vomit Status: Acute Assessment and Plan: She has known longstanding issues with dysphagia. She was on a regular consistency food diet with mildly thickened liquids at rehab but changed to thin liquids just prior to undergoing dialysis. Change in diet could be the trigger that caused her recurrent aspiration. MBS here showing she need soft and bite sized level 6 and mildly thickened liquids Level 2. Diet resumed. Speech to work with her but she may not be able to retain information due to her dementia. (4) Oropharyngeal dysphagia: Code(s): R13.12 - Dysphagia, oropharyngeal phase Status: Acute Assessment and Plan: As above (5) End stage renal disease: Code(s): N18.6 - End stage renal disease Status: Chronic Assessment and Plan: Electrolyte panel is stable and she completed most of her session of dialysis prior to admission according to ER notes. Nephrology consulted and appreciate their input. Continue dialysis per nephrology Left UE fistula noted but no thrill or bruit. Left UE ultrasound ordered (6) COPD (chronic obstructive pulmonary disease): Qualifiers: COPD type: COPD with acute lower respiratory infection Qualified Code(s): J44.0 - Chronic obstructive pulmonary disease with (acute) lower respiratory infection Code(s): J44.9 - Chronic obstructive pulmonary disease, unspecified Status: Chronic Assessment and Plan: As above (7) Recurrent cerebrovascular accidents (CVAs): Code(s): I63.9 - Cerebral infarction, unspecified Status: Acute Assessment and Plan: Patient was admitted to [facility] on 02/22 for right sided weakness but not found to have new CVA by MRI. She has a history of prior stroke and felt her symptoms were related to old CVAs. Patient with dementia, possibly vascular in nature. Continue ASA. Not on statin therapy so Lipitor added Plan DVT prophyalxis - SCDs Code status - full Subjective Date/time seen: 03/09/24 17:12 Interval history: 73yo female with multi-infarct dementia, ESRD on hemodialysis, COPD, and HTN who presented to the ER via EMS from [facility] where she was receiving dialysis and had almost reaching end of her dialysis session when she developed shortness of breath. Patient is alert but confused. Review of Systems Review of Systems: ROS unobtainable: Yes unobtainable due to mental status Exam Narrative: AF 99.6 138/61 98 20 93% 4L Gen - NARD currently undergoing HD. Chest - coarse BS with expiratory wheezing. left upper chest tunneled HD catheter CV - RRR S1/S2. Tele showing no significant dysrhythmias Abd - Soft, NT/ND, Positive BS Ext - No pedal edema. Left UE incision with dark eshcar but no bruit or thrill Neuro - Alert but confused Psych - Nml mood and affect Skin - Warm and dry. left upper chest dried abrasion Objective Data Vital Signs Vital Signs: Vital Signs - 24 hr 03/08/24 18:00 03/08/24 20:00 03/08/24 20:00 Temperature Pulse Rate 99 79 Respiratory Rate Blood Pressure Pulse Oximetry 90 Oxygen Delivery Nasal Cannula Oxygen Flow Rate 3 03/08/24 21:08 03/08/24 21:17 03/08/24 22:00 Temperature Pulse Rate 89 90 98 Respiratory Rate 20 20 Blood Pressure Pulse Oximetry Oxygen Delivery Oxygen Flow Rate 03/08/24 22:27 03/09/24 00:00 03/09/24 00:00 Temperature 97.8 F Pulse Rate 89 84 Respiratory Rate 20 Blood Pressure 125/32 L Pulse Oximetry 99 Oxygen Delivery High Flow Nasal Cannula Oxygen Flow Rate 6 03/09/24 01:06 03/09/24 02:00 03/09/24 02:32 Temperature 97.8 F Pulse Rate 84 76 80 Respiratory Rate 20 20 Blood Pressure 90/52 L Pulse Oximetry 95 Oxygen Delivery Oxygen Flow Rate 03/09/24 02:45 03/09/24 04:00 03/09/24 04:00 Temperature Pulse Rate 86 86 Respiratory Rate 20 Blood Pressure Pulse Oximetry 96 Oxygen Delivery High Flow Nasal Cannula Oxygen Flow Rate 6 03/09/24 05:48 03/09/24 07:24 03/09/24 08:00 Temperature 97.7 F 98.5 F Pulse Rate 96 89 Respiratory Rate 20 16 Blood Pressure 94/58 L 122/45 L Pulse Oximetry 97 92 96 Oxygen Delivery Nasal Cannula Oxygen Flow Rate 3 03/09/24 08:00 03/09/24 08:56 03/09/24 09:11 Temperature 98.8 F Pulse Rate 78 76 Respiratory Rate 16 Blood Pressure 120/69 Pulse Oximetry 98 Oxygen Delivery Oxygen Flow Rate 3 03/09/24 09:11 03/09/24 09:30 03/09/24 09:45 Temperature Pulse Rate 75 78 84 Respiratory Rate Blood Pressure 138/78 125/75 136/77 Pulse Oximetry Oxygen Delivery Oxygen Flow Rate 03/09/24 09:58 03/09/24 09:58 03/09/24 10:00 Temperature Pulse Rate 89 69 Respiratory Rate 20 Blood Pressure 122/48 L Pulse Oximetry 96 Oxygen Delivery Nasal Cannula Oxygen Flow Rate 3 03/09/24 10:00 03/09/24 10:09 03/09/24 10:15 Temperature Pulse Rate 96 87 81 Respiratory Rate 20 Blood Pressure 124/69 Pulse Oximetry Oxygen Delivery Oxygen Flow Rate 03/09/24 10:30 03/09/24 10:45 03/09/24 11:00 Temperature Pulse Rate 84 79 76 Respiratory Rate Blood Pressure 126/70 122/72 129/72 Pulse Oximetry Oxygen Delivery Oxygen Flow Rate 03/09/24 11:15 03/09/24 11:30 03/09/24 11:45 Temperature Pulse Rate 99 84 94 Respiratory Rate Blood Pressure 130/77 112/38 L 124/69 Pulse Oximetry Oxygen Delivery Oxygen Flow Rate 03/09/24 12:00 03/09/24 12:00 03/09/24 12:15 Temperature Pulse Rate 96 90 95 Respiratory Rate Blood Pressure 128/73 116/68 Pulse Oximetry Oxygen Delivery Oxygen Flow Rate 03/09/24 12:30 03/09/24 12:41 03/09/24 12:53 Temperature 98.1 F Pulse Rate 96 87 87 Respiratory Rate 16 Blood Pressure 130/68 123/80 117/60 Pulse Oximetry 97 Oxygen Delivery Oxygen Flow Rate 03/09/24 14:00 03/09/24 14:00 03/09/24 15:55 Temperature 98.5 F Pulse Rate 96 96 Respiratory Rate 14 20 Blood Pressure 119/76 Pulse Oximetry 93 93 Oxygen Delivery Nasal Cannula Oxygen Flow Rate 2 03/09/24 16:00 03/09/24 16:00 03/09/24 16:07 Temperature 99.6 F Pulse Rate 104 H 98 Respiratory Rate 16 20 Blood Pressure 138/61 Pulse Oximetry 90 93 Oxygen Delivery Nasal Cannula Oxygen Flow Rate 4 Intake/Output Intake/Output: Intake & Output 03/06/24 03/07/24 03/08/24 03/09/24 23:59 23:59 23:59 23:59 Intake Total 1400 450 240 Output Total 1301 Balance 1400 450 -1061 Meds/Results Medications: Active Medications Generic Name Dose Route Start Last Admin Trade Name Freq PRN Reason Stop Dose Admin Albuterol/Ipratropium 3 ml 03/08/24 02:00 03/09/24 15:53 Ipratropium 0.5 Mg/Albuterol Sulfate 2.5 Mg Ampul.Neb 3 Ml INHALATION 3 ml Q6HRT VARGHESE Administration Aspirin 81 mg 03/08/24 09:00 03/09/24 14:11 Aspirin 81 Mg Enteric Tablet PO 81 mg DAILY VARGHESE Administration Atorvastatin Calcium 40 mg 03/09/24 09:00 03/09/24 14:11 Atorvastatin 40 Mg Tablet PO 40 mg DAILY VARGHESE Administration Gabapentin 100 mg 03/08/24 09:00 03/09/24 16:04 Gabapentin 100 Mg Capsule PO Not Given TID [facility] Ampicillin Sodium/Sulbactam Sodium 3 gm in 100 mls @ 200 mls/hr 03/08/24 10:00 03/08/24 23:05 Unasyn 3 Gm/Ns 100 Ml IVPB Infused Q12H VARGHESE Infusion Pantoprazole Sodium 40 mg 03/08/24 09:00 03/09/24 14:11 Pantoprazole 40 Mg Tablet PO 40 mg QAM VARGHESE Administration Sevelamer Carbonate 800 mg 03/08/24 17:00 03/09/24 16:04 Sevelamer Carbonate 800 Mg Tablet PO Not Given TIDWM [facility] Vitamin D 5,000 units 03/08/24 09:00 03/09/24 14:11 Cholecalciferol 5,000 Units Tablet BY MOUTH 5,000 units DAILY VARGHESE Administration Radiology Results: ITS Impressions Chest X-Ray 03/07/24 17:55 IMPRESSION: 1. Mild airspace opacities in right lower lung zone, consistent with atelectasis versus pneumonia. Modified Barium Swallow 03/08/24 12:32 IMPRESSION: 1. No laryngeal penetration or aspiration. 2. Please refer to the speech therapy report for recommendations. Labs Labs: Laboratory Results - last 24 hr 03/09/24 04:55 WBC 7.0 RBC 2.96 L Hgb 10.1 L Hct 32.6 L MCV 110.1 H MCH 34.1 H MCHC 31.0 L RDW 14.3 Plt Count 175 MPV 9.9 Immature Gran % (Auto) 0.6 H Neut % (Auto) 68.0 Lymph % (Auto) 13.9 L [place] % (Auto) 10.9 H Eos % (Auto) 5.7 H Baso % (Auto) 0.9 Lymph # (Auto) 0.97 [place] # (Auto) 0.8 H Eos # (Auto) 0.4 H Baso # (Auto) 0.1 Abs Immat Gran (auto) 0.04 H Absolute Neuts (auto) 4.7 Absolute Nucleated RBC 0.000 Nucleated RBC % 0.0 Sodium 141 Potassium 3.9 Chloride 109 H Carbon Dioxide 25 Anion Gap 7 BUN 20 H Creatinine 6.10 H Estim Creat Clear Calc 8 Estimated GFR 7 L Glucose 99 Calcium 8.9 Phosphorus 4.9 H Albumin 3.6 Hep Bs Antigen Negative Hep Bs Antibody Positive
[2024-03-09] MEDS: AMPICILLIN SULB 3 GM/NS 100 ML 3 GM/100 ML VIAL IVPB ×2 (17:16→19:41)
--- NOTE | 2024-03-09 18:32 | PC.NURSE ---
Pt arrived to floor and was stable.
--- NOTE | 2024-03-09 18:52 | PC.NURSE ---
This patient, Trisha Waite, was received from [imu rm [id number]] on 03/09/24 at 1830. Patient/family oriented to unit policies and routines
[2024-03-10] VITALS (13 sets, daily range): BP systolic 112–129; BP diastolic 66–84; PULSE 70–93; RESP 16–18; TEMP 36.3–36.8; O2SAT 91–97
[2024-03-10] MEDS: IPRATROPIUM 0.5 MG/ALBUTEROL SULFATE 2.5 MG AMPUL.NEB 3 ML INHALATION ×4 (03:13→20:03)
[2024-03-10] MEDS: AMPICILLIN SULB 3 GM/NS 100 ML 3 GM/100 ML VIAL IVPB (04:10)
[2024-03-10] MEDS: ATORVASTATIN 40 MG TABLET PO (08:26)
[2024-03-10] MEDS: ASPIRIN 81 MG ENTERIC TABLET PO (08:27)
[2024-03-10] MEDS: CHOLECALCIFEROL 5,000 UNITS TABLET 5000 UNITS BY MOUTH (08:27)
[2024-03-10] MEDS: PANTOPRAZOLE 40 MG TABLET PO (08:27)
[2024-03-10] MEDS: SEVELAMER CARBONATE 800 MG TABLET PO ×3 (08:27→16:15)
[2024-03-10] MEDS: GABAPENTIN 100 MG CAPSULE PO ×3 (08:27→16:15)
[2024-03-10] MEDS: AMOXICILLIN/CLAVULANATE K 250-125 MG TAB 1 TABLET PO ×2 (12:59→20:20)
--- NOTE | 2024-03-10 13:38 | PM.PNNEP ---
Progress Note: A&P Assessment and Plan (1) ESRD (end stage renal disease) on dialysis: Code(s): N18.6 - End stage renal disease; Z99.2 - Dependence on renal dialysis Status: Acute Assessment and Plan: Patient has end-stage renal disease. She has been on dialysis for a couple of months. Etiology of end-stage renal disease is most likely due to hypertension Due for dialysis tomorrow. Will write orders. Discharge any time and she can get dialysis at rehab (2) Pneumonia: Code(s): J18.9 - Pneumonia, unspecified organism Status: Acute Assessment and Plan: The patient has infiltrates on the chest x-ray. The patient is on Zithromax and Unasyn. No cough or shortness of breath breathing okay. She is on room air. (3) Recurrent cerebrovascular accidents (CVAs): Code(s): I63.9 - Cerebral infarction, unspecified Status: Acute Assessment and Plan: Getting rehab (4) Anemia: Code(s): D64.9 - Anemia, unspecified Status: Chronic Assessment and Plan: Hemoglobin 10.1 yesterday. Will check again tomorrow and get epo on dialysis.. (5) Essential (primary) hypertension: Code(s): I10 - Essential (primary) hypertension Status: Acute Assessment and Plan: Blood pressure under good control Subjective Date/time seen: 03/10/24 13:38 Interval history: the patient is feeling okay . Dialysis due tomorrow. Exam Narrative: WDWN in NAD skin no rash head ncat lungs clear cor reg no rub abd BS+ nontender and soft ext no edema. Objective Data Vital Signs Vital Signs: Vital Signs - 24 hr 03/09/24 14:00 03/09/24 14:00 03/09/24 14:00 Temperature 98.5 F Pulse Rate 96 81 Respiratory Rate 14 Blood Pressure 119/76 Pulse Oximetry 93 93 Oxygen Delivery Nasal Cannula Oxygen Flow Rate 2 Fraction of Inspired Oxygen 03/09/24 15:55 03/09/24 16:00 03/09/24 16:00 Temperature 99.6 F Pulse Rate 96 104 H Respiratory Rate 20 16 Blood Pressure 138/61 Pulse Oximetry 90 93 Oxygen Delivery Nasal Cannula Oxygen Flow Rate 4 Fraction of Inspired Oxygen 03/09/24 16:00 03/09/24 16:07 03/09/24 17:59 Temperature Pulse Rate 94 98 100 Respiratory Rate 20 Blood Pressure Pulse Oximetry Oxygen Delivery Oxygen Flow Rate Fraction of Inspired Oxygen 03/09/24 20:00 03/09/24 20:00 03/10/24 00:00 Temperature 98.6 F 98 F Pulse Rate 90 83 Respiratory Rate 16 16 Blood Pressure 115/75 124/77 Pulse Oximetry 94 94 94 Oxygen Delivery Nasal Cannula Oxygen Flow Rate 3 Fraction of Inspired Oxygen 03/10/24 03:14 03/10/24 03:14 03/10/24 03:20 Temperature Pulse Rate 70 73 Respiratory Rate 18 18 Blood Pressure Pulse Oximetry 92 Oxygen Delivery Room Air Oxygen Flow Rate Fraction of Inspired Oxygen 03/10/24 07:00 03/10/24 07:25 03/10/24 07:25 Temperature 97.3 F L Pulse Rate 90 84 Respiratory Rate 18 18 Blood Pressure 117/84 Pulse Oximetry 96 94 Oxygen Delivery Room Air Oxygen Flow Rate Fraction of Inspired Oxygen 21 03/10/24 07:39 03/10/24 10:18 03/10/24 11:30 Temperature Pulse Rate 80 Respiratory Rate 18 Blood Pressure Pulse Oximetry Oxygen Delivery Room Air Room Air Oxygen Flow Rate Fraction of Inspired Oxygen Intake/Output Intake/Output: Intake & Output 03/07/24 03/08/24 03/09/24 03/10/24 23:59 23:59 23:59 23:59 Intake Total 1400 450 690 260 Output Total 1301 Balance 1400 450 -611 260 Meds/Results Medications: Active Medications Generic Name Dose Route Start Last Admin Trade Name Freq PRN Reason Stop Dose Admin Albuterol/Ipratropium 3 ml 03/08/24 02:00 03/10/24 07:25 Ipratropium 0.5 Mg/Albuterol Sulfate 2.5 Mg Ampul.Neb 3 Ml INHALATION 3 ml Q6HRT VARGHESE Administration Amoxicillin/Clavulanate Potassium 1 tablet 03/10/24 09:00 03/10/24 12:59 Amoxicillin/Clavulanate K 250-125 Mg Tab PO 03/14/24 09:01 1 tablet Q12H VARGHESE Administration Aspirin 81 mg 03/08/24 09:00 03/10/24 08:27 Aspirin 81 Mg Enteric Tablet PO 81 mg DAILY VARGHESE Administration Atorvastatin Calcium 40 mg 03/09/24 09:00 03/10/24 08:26 Atorvastatin 40 Mg Tablet PO 40 mg DAILY VARGHESE Administration Gabapentin 100 mg 03/08/24 09:00 03/10/24 12:59 Gabapentin 100 Mg Capsule PO 100 mg TID VARGHESE Administration Pantoprazole Sodium 40 mg 03/08/24 09:00 03/10/24 08:27 Pantoprazole 40 Mg Tablet PO 40 mg QAM VARGHESE Administration Sevelamer Carbonate 800 mg 03/08/24 17:00 03/10/24 12:59 Sevelamer Carbonate 800 Mg Tablet PO 800 mg TIDWM VARGHESE Administration Vitamin D 5,000 units 03/08/24 09:00 03/10/24 08:27 Cholecalciferol 5,000 Units Tablet BY MOUTH 5,000 units DAILY VARGHESE Administration Radiology Results: ITS Impressions Chest X-Ray 03/07/24 17:55 IMPRESSION: 1. Mild airspace opacities in right lower lung zone, consistent with atelectasis versus pneumonia. Modified Barium Swallow 03/08/24 12:32 IMPRESSION: 1. No laryngeal penetration or aspiration. 2. Please refer to the speech therapy report for recommendations.
--- NOTE | 2024-03-10 17:42 | P.PNIM_ITS ---
Progress Note: A&P Assessment and Plan (1) Sepsis: Qualifiers: Sepsis type: sepsis due to unspecified organism Sepsis acute organ dysfunction status: with acute organ dysfunction Severe sepsis acute organ dysfunction type: acute respiratory failure Acute respiratory failure type: with hypoxia Severe sepsis shock status: without septic shock Qualified Code(s): A41.9 - Sepsis, unspecified organism; R65.20 - Severe sepsis without septic shock; J96.01 - Acute respiratory failure with hypoxia Code(s): A41.9 - Sepsis, unspecified organism Status: Acute Assessment and Plan: Patient meets sepsis criteria with fever, tachycardia, tachypnea and transisent HoTN in the setting of acute vomiting with x-ray findings concerning for pneumonia. Patient likely has aspiration pneumonia. Patient recieved 1L fluid bolus since ESRD. No fevers. WBC down to normal. BCx NGTD She was initially placed on Rocephin, azithromycin and vancomycin in the ER but changed to Unasyn and vancomycin MRSA nasal swab negative so Vancomycin stopped. Will change Unasyn to Augmentin. Weaned to room air. Discharge tomorrow after HD. (2) Acute hypoxic respiratory failure: Code(s): J96.01 - Acute respiratory failure with hypoxia Status: Acute Assessment and Plan: Patient does not wear home O2. ABG showing 7,42/35/59 on 4.5L. Related to aspiration. Still requiring 3L O2. Continue Duonebs Weaned to room air (3) Aspiration pneumonia: Qualifiers: Aspiration pneumonia type: unspecified Laterality: right Lung locat ion: lower lobe of lung Qualified Code(s): J69.0 - Pneumonitis due to inhalation of food and vomit Code(s): J69.0 - Pneumonitis due to inhalation of food and vomit Status: Acute Assessment and Plan: She has known longstanding issues with dysphagia. She was on a regular consistency food diet with mildly thickened liquids at rehab but changed to thin liquids just prior to undergoing dialysis. Change in diet could be the trigger that caused her recurrent aspiration. MBS here showing she need soft and bite sized level 6 and mildly thickened liquids Level 2. Diet resumed. Speech to work with her but she may not be able to retain information due to her dementia. (4) Oropharyngeal dysphagia: Code(s): R13.12 - Dysphagia, oropharyngeal phase Status: Acute Assessment and Plan: As above (5) End stage renal disease: Code(s): N18.6 - End stage renal disease Status: Chronic Assessment and Plan: Electrolyte panel is stable and she completed most of her session of dialysis prior to admission according to ER notes. Nephrology consulted and appreciate their input. Continue dialysis per nephrology Left UE fistula noted but no thrill or bruit. US showing thrombosed fistula. Appreciate Nephrology input (6) COPD (chronic obstructive pulmonary disease): Qualifiers: COPD type: COPD with acute lower respiratory infection Qualified Code(s): J44.0 - Chronic obstructive pulmonary disease with (acute) lower respiratory infection Code(s): J44.9 - Chronic obstructive pulmonary disease, unspecified Status: Chronic Assessment and Plan: As above (7) Recurrent cerebrovascular accidents (CVAs): Code(s): I63.9 - Cerebral infarction, unspecified Status: Acute Assessment and Plan: Patient was admitted to [place] on 02/22 for right sided weakness but not found to have new CVA by MRI. She has a history of prior stroke and felt her symptoms were related to old CVAs. Patient with dementia, possibly vascular in nature. Continue ASA. Not on statin therapy so Lipitor added Plan DVT prophyalxis - SCDs Code status - full Subjective Date/time seen: 03/10/24 17:42 Interval history: 73yo female with multi-infarct dementia, ESRD on hemodialysis, COPD, and HTN who presented to the ER via EMS from [facility] where she was receiving dialysis and had almost reaching end of her dialysis session when she developed shortness of breath. Patient is alert but confused. Hx is unreliable Review of Systems Review of Systems: ROS unobtainable: Yes unobtainable due to mental status Exam Narrative: AF 98.3 112/66 92 18 91% 3L Gen - NARD Chest - few basilar rhonchi o/w clear. HD catheter in left upper chest CV - RRR S1/S2 Abd - Soft, NT/ND, Positive BS Ext - No pedal edema. Left UE incision with dark eschar but no bruit or thrill Neuro - Alert but confused Psych - Nml mood and affect Skin - Warm and dry. Objective Data Vital Signs Vital Signs: Vital Signs - 24 hr 03/09/24 17:59 03/09/24 20:00 03/09/24 20:00 Temperature 98.6 F Pulse Rate 100 90 Respiratory Rate 16 Blood Pressure 115/75 Pulse Oximetry 94 94 Oxygen Delivery Nasal Cannula Oxygen Flow Rate 3 Fraction of Inspired Oxygen 03/10/24 00:00 03/10/24 03:14 03/10/24 03:14 Temperature 98 F Pulse Rate 83 70 Respiratory Rate 16 18 Blood Pressure 124/77 Pulse Oximetry 94 92 Oxygen Delivery Room Air Oxygen Flow Rate Fraction of Inspired Oxygen 03/10/24 03:20 03/10/24 07:00 03/10/24 07:25 Temperature 97.3 F L Pulse Rate 73 90 Respiratory Rate 18 18 Blood Pressure 117/84 Pulse Oximetry 96 94 Oxygen Delivery Room Air Oxygen Flow Rate Fraction of Inspired Oxygen 21 03/10/24 07:25 03/10/24 07:39 03/10/24 08:00 Temperature Pulse Rate 84 80 Respiratory Rate 18 18 Blood Pressure Pulse Oximetry Oxygen Delivery Room Air Oxygen Flow Rate Fraction of Inspired Oxygen 03/10/24 10:18 03/10/24 11:30 03/10/24 13:59 Temperature Pulse Rate 90 Respiratory Rate 18 Blood Pressure Pulse Oximetry Oxygen Delivery Room Air Room Air Oxygen Flow Rate Fraction of Inspired Oxygen 03/10/24 14:10 03/10/24 14:53 Temperature 98.3 F Pulse Rate 93 92 Respiratory Rate 18 18 Blood Pressure 112/66 Pulse Oximetry 91 Oxygen Delivery Oxygen Flow Rate Fraction of Inspired Oxygen Intake/Output Intake/Output: Intake & Output 03/07/24 03/08/24 03/09/24 03/10/24 23:59 23:59 23:59 23:59 Intake Total 1400 450 690 360 Output Total 1301 Balance 1400 450 -611 360 Meds/Results Medications: Active Medications Generic Name Dose Route Start Last Admin Trade Name Freq PRN Reason Stop Dose Admin Albuterol/Ipratropium 3 ml 03/08/24 02:00 03/10/24 13:59 Ipratropium 0.5 Mg/Albuterol Sulfate 2.5 Mg Ampul.Neb 3 Ml INHALATION 3 ml Q6HRT VARGHESE Administration Amoxicillin/Clavulanate Potassium 1 tablet 03/10/24 09:00 03/10/24 12:59 Amoxicillin/Clavulanate K 250-125 Mg Tab PO 03/14/24 09:01 1 tablet Q12H VARGHESE Administration Aspirin 81 mg 03/08/24 09:00 03/10/24 08:27 Aspirin 81 Mg Enteric Tablet PO 81 mg DAILY VARGHESE Administration Atorvastatin Calcium 40 mg 03/09/24 09:00 03/10/24 08:26 Atorvastatin 40 Mg Tablet PO 40 mg DAILY VARGHESE Administration Epoetin Triston-epbx 10,000 units 03/11/24 13:41 Epoetin Triston-Epbx 10,000 Units/Ml Vial IV PUSH 03/11/24 13:42 ONCE ONE Gabapentin 100 mg 03/08/24 09:00 03/10/24 16:15 Gabapentin 100 Mg Capsule PO 100 mg TID VARGHESE Administration Pantoprazole Sodium 40 mg 03/08/24 09:00 03/10/24 08:27 Pantoprazole 40 Mg Tablet PO 40 mg QAM VARGHESE Administration Sevelamer Carbonate 800 mg 03/08/24 17:00 03/10/24 16:15 Sevelamer Carbonate 800 Mg Tablet PO 800 mg TIDWM VARGHESE Administration Vitamin D 5,000 units 03/08/24 09:00 03/10/24 08:27 Cholecalciferol 5,000 Units Tablet BY MOUTH 5,000 units DAILY VARGHESE Administration Radiology Results: ITS Impressions Chest X-Ray 03/07/24 17:55 IMPRESSION: 1. Mild airspace opacities in right lower lung zone, consistent with atelectasis versus pneumonia. Modified Barium Swallow 03/08/24 12:32 IMPRESSION: 1. No laryngeal penetration or aspiration. 2. Please refer to the speech therapy report for recommendations. Duplex Scan Upper Extremity Artery 03/10/24 14:09 IMPRESSION: 1. Thrombosed left radiocephalic dialysis fistula. Labs Labs: Laboratory Results - last 24 hr 03/09/24 04:55 WBC 7.0 RBC 2.96 L Hgb 10.1 L Hct 32.6 L MCV 110.1 H MCH 34.1 H MCHC 31.0 L RDW 14.3 Plt Count 175 MPV 9.9 Immature Gran % (Auto) 0.6 H Neut % (Auto) 68.0 Lymph % (Auto) 13.9 L Hooker % (Auto) 10.9 H Eos % (Auto) 5.7 H Baso % (Auto) 0.9 Lymph # (Auto) 0.97 Hooker # (Auto) 0.8 H Eos # (Auto) 0.4 H Baso # (Auto) 0.1 Abs Immat Gran (auto) 0.04 H Absolute Neuts (auto) 4.7 Absolute Nucleated RBC 0.000 Nucleated RBC % 0.0 Sodium 141 Potassium 3.9 Chloride 109 H Carbon Dioxide 25 Anion Gap 7 BUN 20 H Creatinine 6.10 H Estim Creat Clear Calc 8 Estimated GFR 7 L Glucose 99 Calcium 8.9 Phosphorus 4.9 H Albumin 3.6 Hep Bs Antigen Negative Hep Bs Antibody Positive
[2024-03-11] VITALS (26 sets, daily range): BP systolic 100–133; BP diastolic 32–77; PULSE 67–99; RESP 16–18; TEMP 36.4–37; O2SAT 92–95
[2024-03-11] MEDS: IPRATROPIUM 0.5 MG/ALBUTEROL SULFATE 2.5 MG AMPUL.NEB 3 ML INHALATION ×3 (01:22→13:05)
[2024-03-11 05:43] LABS: Hepatitis B Core Ab Total REACTIVE (NON-REACTIVE)
[2024-03-11 06:40] LABS: Hematocrit 38.2 % (37.0-47.0); Hemoglobin 12.3 g/dL (12.0-15.0); Mean Corpuscular HGB Conc 32.2 g/dl (32-36); Mean Corpuscular Hemoglobin 34.5 pg (26-34); Mean Platelet Volume 10.2 fl (7.4-10.4); Platelet Count Result 194 k/mm3 (150-375); Red Blood Count 3.57 M/mm3 (4.2-5.4); White Blood Count 8.1 K/mm3 (4.5-10.0)
[2024-03-11 07:50] LABS: Anion Gap 11 mmol/L (4-12); Blood Urea Nitrogen 18 mg/dL (7-17); Calcium 9.3 mg/dL (8.4-10.2); Carbon Dioxide 25 mmol/L (22-30); Chloride 99 mmol/L (98-107); Estimated CRCL calculation 7 ml/min; Estimated Glomerular Filt Rate 7; Glucose 88 mg/dL (65-110); Potassium 3.6 mmol/L (3.4-5.0); Sodium 135 mmol/L (137-145)
[2024-03-11] MEDS: HEPARIN SODIUM 1,000 UNITS/ML VIAL 1000 UNITS IV PUSH (08:24)
[2024-03-11] MEDS: HEPARIN SODIUM 1,000 UNITS/ML VIAL 500 UNITS IV PUSH ×2 (08:28→09:28)
--- NOTE | 2024-03-11 09:10 | PM.PNNEP ---
Progress Note: A&P Assessment and Plan (1) ESRD (end stage renal disease) on dialysis: Code(s): N18.6 - End stage renal disease; Z99.2 - Dependence on renal dialysis Status: Acute Assessment and Plan: Patient has end-stage renal disease. She has been on dialysis for a couple of months. Etiology of end-stage renal disease is most likely due to hypertension Dialysis is underway Volume status looks okay. (2) Pneumonia: Code(s): J18.9 - Pneumonia, unspecified organism Status: Acute Assessment and Plan: The patient has infiltrates on the chest x-ray. The patient is on Augmentin No cough or shortness of breath breathing okay. She is on room air. (3) Recurrent cerebrovascular accidents (CVAs): Code(s): I63.9 - Cerebral infarction, unspecified Status: Acute Assessment and Plan: Getting rehab (4) Anemia: Code(s): D64.9 - Anemia, unspecified Status: Chronic Assessment and Plan: Hemoglobin 10.1 yesterday. Hemoglobin 12.3 today. No need for IESHA (5) Essential (primary) hypertension: Code(s): I10 - Essential (primary) hypertension Status: Acute Assessment and Plan: Blood pressure under good control Subjective Date/time seen: 03/11/24 09:10 Interval history: Patient is feeling good today. Eager to go back to rehab. The patient is on dialysis and tolerating it well. She was seen at 9:00 a.m. Exam Narrative: WDWN in NAD skin no rash head ncat lungs clear bilaterally cor reg no rub abd BS+ nontender and soft ext no edema or cyanosis. Objective Data Vital Signs Vital Signs: Vital Signs - 24 hr 03/10/24 10:18 03/10/24 11:30 03/10/24 13:59 Temperature Pulse Rate 90 Respiratory Rate 18 Blood Pressure Pulse Oximetry Oxygen Delivery Room Air Room Air 03/10/24 14:10 03/10/24 14:53 03/10/24 18:42 Temperature 98.3 F 97.9 F Pulse Rate 93 92 80 Respiratory Rate 18 18 18 Blood Pressure 112/66 129/79 Pulse Oximetry 91 97 Oxygen Delivery 03/10/24 20:05 03/10/24 20:05 03/10/24 20:11 Temperature Pulse Rate 80 79 Respiratory Rate 18 18 Blood Pressure Pulse Oximetry 91 Oxygen Delivery Room Air 03/10/24 22:37 03/11/24 00:35 03/11/24 01:24 Temperature 98.1 F 97.7 F Pulse Rate 78 76 80 Respiratory Rate 16 16 18 Blood Pressure 115/76 129/77 Pulse Oximetry 94 95 Oxygen Delivery 03/11/24 01:30 03/11/24 05:45 03/11/24 07:15 Temperature 97.9 F Pulse Rate 81 67 71 Respiratory Rate 18 16 18 Blood Pressure 133/68 Pulse Oximetry 94 92 Oxygen Delivery Room Air 03/11/24 07:15 03/11/24 07:25 Temperature Pulse Rate 71 74 Respiratory Rate 18 18 Blood Pressure Pulse Oximetry Oxygen Delivery Intake/Output Intake/Output: Intake & Output 03/08/24 03/09/24 03/10/24 03/11/24 23:59 23:59 23:59 23:59 Intake Total 450 690 360 240 Output Total 1301 Balance 450 -611 360 240 Meds/Results Medications: Active Medications Generic Name Dose Route Start Last Admin Trade Name Freq PRN Reason Stop Dose Admin Albuterol/Ipratropium 3 ml 03/08/24 02:00 03/11/24 07:15 Ipratropium 0.5 Mg/Albuterol Sulfate 2.5 Mg Ampul.Neb 3 Ml INHALATION 3 ml Q6HRT VARGHESE Administration Amoxicillin/Clavulanate Potassium 1 tablet 03/10/24 09:00 03/10/24 20:20 Amoxicillin/Clavulanate K 250-125 Mg Tab PO 03/14/24 09:01 1 tablet Q12H VARGHESE Administration Aspirin 81 mg 03/08/24 09:00 03/10/24 08:27 Aspirin 81 Mg Enteric Tablet PO 81 mg DAILY VARGHESE Administration Atorvastatin Calcium 40 mg 03/09/24 09:00 03/10/24 08:26 Atorvastatin 40 Mg Tablet PO 40 mg DAILY VARGHESE Administration Epoetin Triston-epbx 10,000 units 03/11/24 13:41 Epoetin Triston-Epbx 10,000 Units/Ml Vial IV PUSH 03/11/24 13:42 ONCE ONE Gabapentin 100 mg 03/08/24 09:00 03/10/24 16:15 Gabapentin 100 Mg Capsule PO 100 mg TID VARGHESE Administration Pantoprazole Sodium 40 mg 03/08/24 09:00 03/10/24 08:27 Pantoprazole 40 Mg Tablet PO 40 mg QAM VARGHESE Administration Sevelamer Carbonate 800 mg 03/08/24 17:00 03/10/24 16:15 Sevelamer Carbonate 800 Mg Tablet PO 800 mg TIDWM VARGHESE Administration Vitamin D 5,000 units 03/08/24 09:00 03/10/24 08:27 Cholecalciferol 5,000 Units Tablet BY MOUTH 5,000 units DAILY VARGHESE Administration Radiology Results: ITS Impressions Chest X-Ray 03/07/24 17:55 IMPRESSION: 1. Mild airspace opacities in right lower lung zone, consistent with atelectasis versus pneumonia. Modified Barium Swallow 03/08/24 12:32 IMPRESSION: 1. No laryngeal penetration or aspiration. 2. Please refer to the speech therapy report for recommendations. Duplex Scan Upper Extremity Artery 03/10/24 14:09 IMPRESSION: 1. Thrombosed left radiocephalic dialysis fistula. Labs Labs: Laboratory Results - last 24 hr 03/09/24 03/11/24 04:55 06:02 WBC 8.1 RBC 3.57 L Hgb 12.3 Hct 38.2 MCV 107.0 H MCH 34.5 H MCHC 32.2 RDW 15.0 H Plt Count 194 MPV 10.2 Sodium 135 L Potassium 3.6 Chloride 99 Carbon Dioxide 25 Anion Gap 11 BUN 18 H Creatinine 6.30 H Estim Creat Clear Calc 7 Estimated GFR 7 L Glucose 88 Calcium 9.3 Hep B Core Total Ab Reactive A
--- NOTE | 2024-03-11 09:29 | PCPTNOTE ---
The patient treatment was not able to be completed at this time due to patient out of room for dialysis. Will plan to continue treatment per plan of care.
--- NOTE | 2024-03-11 10:17 | PCOTNOTE ---
Patient out of the room at this time. Patient is in dialysis.
[2024-03-11 10:55] LABS: Hepatitis B Core IgM Result Negative (Negative)
[2024-03-11 11:09] LABS: Hepatitis C Virus Antibody Negative (Negative)
--- NOTE | 2024-03-11 11:39 | P.DS_ITS ---
DS: Admitting Diagnosis Discharge Date 03/11/24 Admitting Diagnosis Shortness of breath DS: Discharge Diagnosis Discharge Diagnosis (1) Sepsis: Qualifiers: Sepsis type: sepsis due to unspecified organism Sepsis acute organ dysfunction status: with acute organ dysfunction Severe sepsis acute organ dysfunction type: acute respiratory failure Acute respiratory failure type: with hypoxia Severe sepsis shock status: without septic shock Qualified Code(s): A41.9 - Sepsis, unspecified organism; R65.20 - Severe sepsis without septic shock; J96.01 - Acute respiratory failure with hypoxia Code(s): A41.9 - Sepsis, unspecified organism Status: Acute (2) Acute hypoxic respiratory failure: Code(s): J96.01 - Acute respiratory failure with hypoxia Status: Acute (3) Aspiration pneumonia: Qualifiers: Aspiration pneumonia type: unspecified Laterality: right Lung location: lower lobe of lung Qualified Code(s): J69.0 - Pneumonitis due to inhalation of food and vomit Code(s): J69.0 - Pneumonitis due to inhalation of food and vomit Status: Acute (4) Oropharyngeal dysphagia: Code(s): R13.12 - Dysphagia, oropharyngeal phase Status: Acute (5) End stage renal disease: Code(s): N18.6 - End stage renal disease Status: Chronic (6) COPD (chronic obstructive pulmonary disease): Qualifiers: COPD type: COPD with acute lower respiratory infection Qualified Code(s): J44.0 - Chronic obstructive pulmonary disease with (acute) lower respiratory infection Code(s): J44.9 - Chronic obstructive pulmonary disease, unspecified Status: Chronic (7) Recurrent cerebrovascular accidents (CVAs): Code(s): I63.9 - Cerebral infarction, unspecified Status: Acute DS: Summary Hospital Course Reason for hospitalization: 73yo female with multi-infarct dementia, ESRD on hemodialysis, COPD, and HTN who presented to the ER via EMS from [facility] where she was receiving dialysis and had almost reaching end of her dialysis session when she developed shortness of breath. Hospital Course: The following issues were addressed: (1) Sepsis: Patient meet sepsis criteria with fever, tachycardia, tachypnea and transient HoTN in the setting of acute vomiting with x-ray findings concerning for pneumonia. Patient likely has aspiration pneumonia. Patient received 1L fluid bolus since ESRD. No fevers. WBC normalized. BCx NGTD. She was initially placed on Rocephin, azithromycin and vancomycin in the ER but changed to Unasyn and vancomycin. MRSA nasal swab negative so Vancomycin stopped. She had clinical improvement so Unasyn was changed to Augmentin. Weaned to room air. (2) Acute hypoxic respiratory failure: Patient does not wear home O2. ABG showing 7,/ on 4.5L. Related to aspiration. Treated with Duonebs. She was able to be weaned to room air. (3) Aspiration pneumonia: She has known longstanding issues with dysphagia. She was on a regular consistency food diet with mildly thickened liquids at rehab but changed to thin liquids just prior to undergoing dialysis. Change in diet could be the trigger that caused her recurrent aspiration. MBS here showing she need soft and bite sized level 6 and mildly thickened liquids Level 2 diet which was started. Speech worked with her but she may not be able to retain information due to her dementia. (4) Oropharyngeal dysphagia: As above (5) End stage renal disease: Patient with ESRD. Electrolyte panel was stable and she completed most of her dialysis session prior to admission according to ER notes. Nephrology consulted and appreciate their input. We continued dialysis per nephrology recommendations. Left UE fistula noted but no thrill or bruit. US showing thrombosed fistula. Patient to follow up with her vascular surgeon. (6) COPD (chronic obstructive pulmonary disease): As above (7) Recurrent cerebrovascular accidents (CVAs): Patient was admitted to [place] on 02/22 for right sided weakness but not found to have new CVA by MRI. She has a history of prior stroke and felt her symptoms were related to old CVAs. Patient with dementia, possibly vascular in nature. We continued ASA. Not on statin therapy so Lipitor added. 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 Core IgM negative to suggest prior infection that has cleared. HepC Ab negative. She overall did well and was able to be discharged on 03/11/24 Status at Discharge Cognitive/behavioral status at discharge: stable Time Spent with Patient Time attestation: Total time spent providing and/or coordinating discharge services: 35 minutes Time spent: Greater than 30 minutes Exam Narrative: AF 97.9 116/57 86 16 93% ra Gen - NARD currently undergoing HD Chest - scattered expiratory rhonchi. HD catheter in left upper chest currently accessed CV - RRR S1/S2 Abd - Soft, NT/ND, Positive BS Ext - No pedal edema. Left UE incision with dark eschar but no bruit or thrill Neuro - Alert but confused Psych - Nml mood and affect Skin - Warm and dry. Left upper chest abrasion clean and dry DS: Data Data Completed and Pending Labs on day of discharge: Labs from last 24 hours 03/11/24 03/09/24 06:02 04:55 WBC 8.1 RBC 3.57 L Hgb 12.3 Hct 38.2 MCV 107.0 H MCH 34.5 H MCHC 32.2 RDW 15.0 H Plt Count 194 MPV 10.2 Sodium 135 L Potassium 3.6 Chloride 99 Carbon Dioxide 25 Anion Gap 11 BUN 18 H Creatinine 6.30 H Estim Creat Clear Calc 7 Estimated GFR 7 L Glucose 88 Calcium 9.3 Hep B Core Total Ab Reactive A Hep B Core IgM Ab Negative Hepatitis C Ab Screen Negative Preliminary micro results at discharge 03/07/24 21:51 Blood Culture - Preliminary Blood 03/07/24 17:30 Blood Culture - Preliminary Blood Discharge Plan Discharge Attending physician on discharge: Del Haro Consulting providers: Joao Walter Discharging Clinician: Del Haro Anticipated Discharge Date/Time: 03/11/24 11:57 Patient Disposition: [facility] Activity: as tolerated Diet: renal and other - see discharge instructions Discharge Instructions: Soft and bite sized Level 6 Renal Diet with Level 2 thickened liquids. Aspiration Precautions. Continue Dialysis at her routine schedule. Check blood pressure 1 to 2 times a day. Record for the doctor's review. Take precautions to avoid falls. Rise slowly from a lying or sitting position. Pause before standing or walking. Contact the doctor if the patient has fevers or other worrisome symptoms. Avoid NSAIDs (ibuprofen, naproxen, Aleve). Tylenol is safe to take. Follow-up with the provider at the facility. Follow-up with Nephrology at next scheduled appointment. Follow-up with vascular surgeon regarding nonfunctioning fistula. Thank you for using [facility] for your health care needs. Patient Language: Gabonese Follow-up/Referrals: Anay,MD Jasson [Primary Care Provider] - Discharge Medications: New atorvastatin 40 mg Tablet 40 mg PO DAILY Qty: 30 0RF amoxicillin-pot clavulanate 250-125 mg Tablet 1 tablet PO Q12H Qty: 7 0RF Rx Instructions: Dose after dialysis on dialysis days. acetaminophen 325 mg Tablet 650 mg PO Q6H PRN (Reason: Mild Pain (1-3) Or Fever) Qty: 30 0RF Continued aspirin [Adult Low Dose Aspirin] 81 mg tablet,delayed release (DR/EC) 81 mg PO DAILY gabapentin 100 mg Capsule 100 mg PO TID Patient Comments: HS cholecalciferol (vitamin D3) 125 mcg (5,000 unit) Tablet 125 mcg PO DAILY pantoprazole 40 mg tablet,delayed release (DR/EC) 40 mg PO QAM hydralazine 25 mg tablet 25 mg PO Q6H PRN (Reason: SBP greater than 160) ipratropium-albuterol 0.5 mg-3 mg(2.5 mg base)/3 mL solution for nebulization 3 ml inhalation BID PRN (Reason: SOB ) sevelamer HCl 800 mg tablet 800 mg PO TID Rx Instructions: Must administer with a meal/food Discontinued hydrocodone-acetaminophen 5-325 mg Tablet 1 tablet PO Q6H PRN (Reason: Pain) Date of admission: 03/08/24 07:13 Primary Care Provider: AmyJasson Admitting Provider: Nicholas Arreguin Attending physician on admission: Nicholas Arreguin Condition: Stable Hospitalist MIPS Heart Failure (Exclusion) Patient has history of Heart Transplant or Left Ventricular Assistive Device?: No IF YES, STOP HERE Heart Failure (Qualifier) Patient has current or prior documentation of LVEF less than or equal to 40%, or mod/servere depressed LVSF?: No IF NO, STOP HERE
[2024-03-11] MEDS: HEPARIN SODIUM 1,000 UNITS/ML VIAL 6000 UNITS IV PUSH (12:15)
[2024-03-11] MEDS: SEVELAMER CARBONATE 800 MG TABLET PO (13:55)
[2024-03-11] MEDS: ASPIRIN 81 MG ENTERIC TABLET PO (13:56)
[2024-03-11] MEDS: GABAPENTIN 100 MG CAPSULE PO (13:56)
[2024-03-11] MEDS: PANTOPRAZOLE 40 MG TABLET PO (13:56)
[2024-03-11] MEDS: AMOXICILLIN/CLAVULANATE K 250-125 MG TAB 1 TABLET PO (13:56)
[2024-03-11] MEDS: ATORVASTATIN 40 MG TABLET PO (13:56)
[2024-03-11] MEDS: CHOLECALCIFEROL 5,000 UNITS TABLET 5000 UNITS BY MOUTH (13:56)
[2024-03-13 14:28] LABS: Hepatitis C RNA, Quant PCR <15 NOT DETECTED IU/mL (NOT DETECTED)
== END 2024-03-11 16:04 | DRG 871 ==
LOC: ANHED 16:52 → ANHIMU 20:43 → ANH3MEDSUR 03-10 10:14 → ANHIMU 03-13 10:57
PROVIDERS: Internal Medicine; Internal Medicine Nephrology; Admitting Provider General Practice; Emergency Provider Emergency Medicine; PCP Family Medicine; Visit Provider Internal Medicine
DX: A41.9 Sepsis, unspecified organism (principal); J18.9 Pneumonia, unspecified organism; J69.0 Pneumonitis due to inhalation of food and vomit; J96.01 Acute respiratory failure with hypoxia; N18.6 End stage renal disease; I12.0 Hypertensive chronic kidney disease with stage 5 chronic kidney disease or end stage renal disease; J44.0 Chronic obstructive pulmonary disease with (acute) lower respiratory infection; I69.351 Hemiplegia and hemiparesis following cerebral infarction affecting right dominant side; R65.20 Severe sepsis without septic shock; D63.1 Anemia in chronic kidney disease; E78.5 Hyperlipidemia, unspecified; M19.90 Unspecified osteoarthritis, unspecified site; R13.12 Dysphagia, oropharyngeal phase; F01.50 Vascular dementia, unspecified severity, without behavioral disturbance, psychotic disturbance, mood disturbance, and anxiety; I69.311 Memory deficit following cerebral infarction; Z87.891 Personal history of nicotine dependence; Z96.652 Presence of left artificial knee joint; Z96.611 Presence of right artificial shoulder joint; Z79.82 Long term (current) use of aspirin; Z99.2 Dependence on renal dialysis
CPT/HCPCS: 36415; 36600; 71045; 80048; 80053; 80069; 82805; 83605; 83880; 85018; 85025; 85027; 85610; 85730; 86704; 86705; 86706; 86803; 87040; 87340; 87522; 87637; 87641; 92611; 93005; 93931; 94640; 96365; 96367; 96375; 97161; 97165; 99285; A9270; G0257; G0378; J0295; J0456; J0696; J1644; J2405; J3370; J7030; Q5105

== ENCOUNTER 2024-03-12 15:16 | Inpatient (IN) | payer MEDICARE, SELFPAY ==
[2024-03-12] VITALS (9 sets, daily range): BP systolic 116–136; BP diastolic 54–86; PULSE 79–90; RESP 16–20; TEMP 36.4–36.8; O2SAT 89–98; BMI 25.3
--- NOTE | ~2024-03-12 | NM_ITS ---
EXAMINATION: NM nicolás stress w perfusion DATE: 03/14/2024 11:50 INDICATION: Chest pain. Hypoxia and fatigue. TECHNIQUE: Rest images were obtained following intravenous administration of 9 mCi Tc99m tetrofosmin (Myoview). The patient was infused intravenously with Lexiscan (regadenoson). Then, 29.8 mCi Tc99m te trofosmin (Myoview) was administered intravenously, and stress images were obtained. Data was reconst ructed into short axis and horizontal and vertical long axis SPECT images. Gated SPECT images were al so obtained. COMPARISON: Chest CT 03/12/2024 FINDINGS: There is no definite reversible or fixed perfusion abnormality to suggest ischemia or infar ction. There is no segmental wall motion abnormality. Left ventricular ejection fraction measures > 70%. IMPRESSION: 1. No definite ischemia or infarct. 2. Normal left ventricular ejection fraction measuring >70%. Reviewed, dictated and finalized at location A. IT ADMINISTRATION OFFICER
--- NOTE | ~2024-03-12 | XR_ITS ---
EXAMINATION: XR chest 1V portable DATE: 03/12/2024 16:05 INDICATION: Shortness of breath. Chest pain. TECHNIQUE: A single frontal view of the chest was obtained. COMPARISON: Chest single view 03/07/2024 FINDINGS: There are airspace opacities in the lower lung zones. No pleural effusion or pneumothorax. The heart size is normal. A left internal jugular central venous catheter is seen with tip in right a trium. An electronic implant overlies left chest. There is a total right shoulder arthroplasty. There are old healed right rib fractures. IMPRESSION: 1. Stable airspace opacities in the lower lung zones, likely atelectasis/scarring. Reviewed, dictated and finalized at location A. RNET MARKETING COORDINATOR IMPRESSION: 1. Stable airspace opacities in the lower lung zones, likely atelectasis/scarri ng.
--- NOTE | ~2024-03-12 | CT_ITS ---
EXAMINATION: CTA chest PE protocol DATE: 03/12/2024 19:39 INDICATION: Chest pain. Shortness of breath. TECHNIQUE: Computed tomography angiography (CTA) of the chest was performed with 100 mL Omnipaque-350 intravenous contrast timed to evaluate the pulmonary arteries. Coronal maximum intensity projection 3D-reconstructions were created by the technologist. Automated exposure control and iterative reconst ruction technique were employed. The dose-length product was 659.66 mGy-cm. COMPARISON: Chest single view 03/12/2024 FINDINGS: There is mild emphysema. There is mild atelectasis in the inferior lungs. There are airspac e opacities in right lower lobe. There is a 2.1 cm nodule in right lower lobe. There is material in t he right lower lobe bronchi which may be mucous plugging or aspirated material. No pleural effusion. The heart size is normal. There are coronary artery calcifications. No pericardial effusion. There is no pulmonary embolus. There are gallstones in the gallbladder which is normal in size. There is mode rate atrophy of right kidney and severe atrophy of left kidney. There is a 10 mm mass in right kidney . There is a 9 mm mass in left kidney. There are healing fractures of right 11th and 10th and 11th ri bs with callus. There are old healed bilateral rib fractures. There is moderate thoracic spondylosis. A left internal jugular central venous catheter is seen with tip in the proximal right atrium. IMPRESSION: 1. Right lower lobe pneumonia. 2. 2.1 cm nodule in right lung lower lobe, which may be infection. Noncontrast low-dose chest CT is r ecommended in 1-3 months to exclude malignancy. 3. No pulmonary embolus. 4. Mild emphysema. 5. Healing fractures of right 10th and 11th ribs. Reviewed, dictated and finalized at location A. TESTER IMPRESSION: 1. Right lower lobe pneumonia. 2. 2.1 cm nodule in right lung lower lobe, which may be infection. Noncontrast low-dose chest CT is recommended in 1-3 months to exclude malignancy. 3. No pulmonary embolus. 4. Mild emphysema. 5. Healing fractures of right 10th and 11th ribs.
--- NOTE | 2024-03-12 15:28 | ECG_ITS ---
Test Date: 2024-03-12 15:53:30 Measurements Intervals [place] Rate: 87 P: 28 NC: 142 QRS: -81 QRSD: 90 T: 52 QT: 394 QTc: 476 Interpretive Statements SINUS RHYTHM POSSIBLE ANTERIOR MYOCARDIAL INFARCTION , OF INDETERMINATE AGE [30 ms Q WAVE IN V3/V4, OR R < 0.2 mV IN V4] INFERIOR MYOCARDIAL INFARCTION , PROBABLY OLD [40+ ms Q WAVE AND/OR ST/T ABNORMALITY IN II/aVF] Compared to ECG 03/07/2024 17:05:21 Sinus tachycardia no longer present Incomplete right bundle-branch block no longer present Myocardial infarct finding still present Electronically Signed On 03-12-2024 16:15:25 [employer] by Frederick West M.D.
--- NOTE | 2024-03-12 15:42 | ED.GENADULT ---
HPI - General Adult General Chief complaint: Unspecified <Maggie Rowland PA-C - Last Filed: 03/13/24 09:34> Stated complaint: worsening pna <Maggie Rowland PA-C - Last Filed: 03/13/24 09:34> Time Seen by Provider: 03/12/24 15:20 <Maggie Rowland PA-C - Last Filed: 03/13/24 09:34> Source: patient <Maggie Rowland PA-C - Last Filed: 03/13/24 09:34> Mode of arrival: EMS <FABIANA Uribe Last Filed: 03/13/24 09:34> Limitations: dementia <Maggie Rowland PA-C - Last Filed: 03/13/24 09:34> History of Present Illness HPI narrative: This is a 73-year-old female that presents to the emergency department for hypoxia. Patient is currently in [facility] after a stroke. Today they noted she was hypoxic. Sent to the ER for evaluation of possible worsening pneumonia. Patient has no complaints at this time <Maggie Rowland PA-C - Last Filed: 03/13/24 09:34> Related Data Home medications: Home Medications ?Medication ?Instructions ?Recorded ?Confirmed ?Last Taken ?Type aspirin 81 mg tablet,delayed 81 mg PO DAILY 07/24/22 03/12/24 03/07/24 09:00 History release (Adult Low Dose Aspirin) cholecalciferol (vitamin D3) 125 125 mcg PO DAILY 01/10/23 03/12/24 03/07/24 09:00 History mcg (5,000 unit) tablet gabapentin 100 mg capsule 100 mg PO TID 01/10/23 03/12/24 02/29/24 History sevelamer HCl 800 mg tablet 800 mg PO TID 02/29/24 03/12/24 03/07/24 12:10 History hydralazine 25 mg tablet 25 mg PO Q6H PRN SBP greater than 03/08/24 03/12/24 Unknown History 160 ipratropium 0.5 mg-albuterol 3 mg 3 ml inhalation BID PRN SOB 03/08/24 03/12/24 03/07/24 09:30 History (2.5 mg base)/3 mL nebulization soln pantoprazole 40 mg tablet,delayed 40 mg PO QAM 03/08/24 03/12/24 03/07/24 09:00 History release <Maggie Rowland PA-C - Last Filed: 03/13/24 09:34> Allergies/adverse reactions: Allergies Allergy/AdvReac Type Severity Reaction Status Date / Time No Known Allergies Allergy Verified 01/12/23 07:34 <Maggie Rowland PA-C - Last Filed: 03/13/24 09:34> Review of Systems Review of Systems: ROS unobtainable: Yes unobtainable due to medical condition <Maggie Rowland PA-C - Last Filed: 03/13/24 09:34> [facility] Past Medical History Medical History: Medical History Chronic obstructive pulmonary disease Cerebrovascular accident residual short-term memory loss and right-sided weakness QT prolongation Anemia in chronic kidney disease (CKD) Gait abnormality Oropharyngeal dysphagia Hyperlipidemia Hypertension Depression Nephrolithiasis Osteoarthritis End stage renal disease <Maggie Rowland PA-C - Last Filed: 03/13/24 09:34> Surgical History Surgical History: Surgical History History of right shoulder replacement History of left knee replacement Status post creation of arteriovenous fistula Bilateral upper arms with the right being the oldest, there is wound site on the left but the facial itself has no palpable thrill and no bruit on auscultation <Maggie Rowland PA-C - Last Filed: 03/13/24 09:34> Family History Family History: Family History Other Unknown family medical history <Maggie Rowland PA-C - Last Filed: 03/13/24 09:34> Social History Social History: Social History Social History: Surrogate medical decision maker: Demond Hightower, son. Code status: Full code. Smoking status: Former smoker Tobacco type: cigarettes Smoking end date: 02/28/14 Alcohol intake: never Substance use: never Substance use type: marijuana Other substance usage details: GUMMIES Do You Feel Safe in your Home?: Yes Lack of Transportation: No Lack of Food: Never True Current Housing: I Have Housing Concerned About Future Housing: No Difficulty Paying Gas/Electric Bills: No Difficulty Paying for Meds: No Currently Unemployed: No Education: High School Diploma/GED Difficulty w/ Childcare or Family Care: No Living arrangements: with family Spiritual care concerns: No <Maggie Rowland PA-C - Last Filed: 03/13/24 09:34> Exam Narrative: GENERAL: Well-appearing, well-nourished, and in no acute distress. HEAD: Normocephalic, atraumatic. EYES: EOMI. ENT: Nares clear, no rhinorrhea or epistaxis. Mucous membranes moist. Oropharynx without tonsillar hypertrophy exudate or other lesions. CHEST: No respiratory distress. Rales in the left lower lobe. No wheezes or rhonchi HEART: Regular rate and rhythm. No murmur heard. Normal peripheral pulses. EXTREMITIES: Normal range of motion. No edema. SKIN: Warm, dry, no rash. NEURO: No focal deficits. Alert and oriented x3. PSYCH: Normal mood and affect <Maggie Rowland PA-C - Last Filed: 03/13/24 09:34> Course Consultations Consultation #1: Spoke with Dr. Walter, patient will be able to receive dialysis tomorrow <Maggie Rowland PA-C - Last Filed: 03/13/24 09:34> Date: 03/12/24 <FABIANA Uribe Last Filed: 03/13/24 09:34> Vital Signs Vital signs: Vital Signs Temperature 98.2 F 03/12/24 15:27 Pulse Rate 79 03/12/24 15:27 Respiratory Rate 20 03/12/24 15:27 Blood Pressure 129/54 L 03/12/24 15:27 Pulse Oximetry 89 L 03/12/24 15:27 Oxygen Delivery Room Air 03/12/24 15:27 Temperature 97.8 F 03/13/24 06:12 Pulse Rate 72 03/13/24 07:35 Respiratory Rate 18 03/13/24 07:35 Blood Pressure 108/71 03/13/24 06:12 Pulse Oximetry 97 03/13/24 07:25 Oxygen Delivery Nasal Cannula 03/13/24 07:25 Oxygen Flow Rate 2 03/13/24 07:25 <Maggie Rowland PA-C - Last Filed: 03/13/24 09:34> Vital Signs Temperature 98.2 F 03/12/24 15:27 Pulse Rate 79 03/12/24 15:27 Respiratory Rate 20 03/12/24 15:27 Blood Pressure 129/54 L 03/12/24 15:27 Pulse Oximetry 89 L 03/12/24 15:27 Oxygen Delivery Room Air 03/12/24 15:27 Temperature 97.8 F 03/13/24 06:12 Pulse Rate 72 03/13/24 07:35 Respiratory Rate 18 03/13/24 07:35 Blood Pressure 108/71 03/13/24 06:12 Pulse Oximetry 97 03/13/24 07:25 Oxygen Delivery Nasal Cannula 03/13/24 07:25 Oxygen Flow Rate 2 03/13/24 07:25 <Violet Silverio PA-C - Last Filed: 03/12/24 21:05> Medical Decision Making MDM Narrative Medical decision making narrative: Patient presents to the emergency department for hypoxia noted at rehab facility. Patient was recently admitted to our hospital for aspiration pneumonia. Had been discharged back to rehab yesterday, noted to be hypoxic again today. She is afebrile and nontoxic appearing. Lungs are largely clear on exam. Mild rales noted at the bases. Patient has been stable on 2 L nasal cannula. Cbc without leukocytosis. Metabolic panel without evidence of patient's end-stage renal disease. Chest x-ray shows atelectasis. D-dimer obtained. This was elevated at 2.62. CTA of the chest will be obtained for further evaluation. Spoke with Dr. Walter, patient will be able to be dialyzed tomorrow after receiving contrast. Care taken over by FABIANA Lazo at shift change RG - Care was signed out to myself at shift change pending CTA chest imaging. Patient would require admission either way for acute hypoxia. CT imaging showed no evidence of PE, right lower lobe pneumonia, right lower lung nodule. Blood cultures will be obtained. Patient will be restarted on antibiotics and admitted for further evaluation. Discussed case with Dr. Lugo, hospitalist, accepted patient for admission. Recommended to start Vanc, cefepime, azithromycin for nosocomial PNA. Patient in agreement with plan. Nephrology was consulted by previous provider for HD. Patient has had two flat troponins. Will admit to med tele. <Maggie Rowland PA-C - Last Filed: 03/13/24 09:34> RG - Care was signed out to myself at shift change pending CTA chest imaging. Patient would require admission either way for acute hypoxia. CT imaging showed no evidence of PE, right lower lobe pneumonia, right lower lung nodule. Blood cultures will be obtained. Patient will be restarted on antibiotics and admitted for further evaluation. Discussed case with Dr. Lugo, hospitalist, accepted patient for admission. Recommended to start Vanc, cefepime, azithromycin for nosocomial PNA. Patient in agreement with plan. Nephrology was consulted by previous provider for HD. Patient has had two flat troponins. Will admit to med tele. <Violet Silverio PA-C - Last Filed: 03/12/24 21:05> Vital Signs Vital Signs: Vital Signs Temperature 98.2 F 03/12/24 15:27 Pulse Rate 79 03/12/24 15:27 Respiratory Rate 20 03/12/24 15:27 Blood Pressure 129/54 L 03/12/24 15:27 Pulse Oximetry 89 L 03/12/24 15:27 Oxygen Delivery Room Air 03/12/24 15:27 Temperature 97.8 F 03/13/24 06:12 Pulse Rate 72 03/13/24 07:35 Respiratory Rate 18 03/13/24 07:35 Blood Pressure 108/71 03/13/24 06:12 Pulse Oximetry 97 03/13/24 07:25 Oxygen Delivery Nasal Cannula 03/13/24 07:25 Oxygen Flow Rate 2 03/13/24 07:25 <Maggie Rowland PA-C - Last Filed: 03/13/24 09:34> Vital Signs Temperature 98.2 F 03/12/24 15:27 Pulse Rate 79 03/12/24 15:27 Respiratory Rate 20 03/12/24 15:27 Blood Pressure 129/54 L 03/12/24 15:27 Pulse Oximetry 89 L 03/12/24 15:27 Oxygen Delivery Room Air 03/12/24 15:27 Temperature 97.8 F 03/13/24 06:12 Pulse Rate 72 03/13/24 07:35 Respiratory Rate 18 03/13/24 07:35 Blood Pressure 108/71 03/13/24 06:12 Pulse Oximetry 97 03/13/24 07:25 Oxygen Delivery Nasal Cannula 03/13/24 07:25 Oxygen Flow Rate 2 03/13/24 07:25 <Violet Silverio PA-C - Last Filed: 03/12/24 21:05> Lab Data Lab results reviewed: Yes I reviewed the patient's lab results. <Maggie Rowland PA-C - Last Filed: 03/13/24 09:34> Result diagrams: 03/13/24 05:55 03/13/24 05:55 <Maggie Rowland PA-C - Last Filed: 03/13/24 09:34> Labs: Lab Results 03/12/24 03/12/24 03/12/24 Range/Units 16:35 16:40 16:40 WBC 9.3 (4.5-10.0) K/mm3 RBC 4.02 L (4.2-5.4) M/mm3 Hgb 14.0 (12.0-15.0) g/dL Hct 43.1 (37.0-47.0) % MCV 107.2 H (80-100) fl MCH 34.8 H (26-34) pg MCHC 32.5 (32-36) g/dl RDW 15.4 H (11.5-14.5) % Plt Count 230 (150-375) k/mm3 MPV 10.7 H (7.4-10.4) fl Immature Gran % (Auto) 0.4 (0-0.5) % Neut % (Auto) 71.6 (45.5-73.1) % Lymph % (Auto) 17.2 L (18.3-44.2) % Frio % (Auto) 8.5 (2.6-8.5) % Eos % (Auto) 1.7 (0-4.4) % Baso % (Auto) 0.6 (0.2-1.2) % Lymph # (Auto) 1.59 (0.9-3.2) K/mm3 Frio # (Auto) 0.8 H (0.1-0.6) K/mm3 Eos # (Auto) 0.2 (0-0.3) K/mm3 Baso # (Auto) 0.1 (0.0-0.1) K/mm3 Abs Immat Gran (auto) 0.04 H (0.00-0.031) K/mm3 Absolute Neuts (auto) 6.6 (1.3-6.7) K/mm3 Absolute Nucleated RBC 0.000 (0.0-0.012) K/mm3 Nucleated RBC % 0.0 (0.0-0.2) % Platelet Estimate Adequate (Adequate) Anisocytosis 2+ Macrocytosis 1+ (NORMAL) Schistocytes None seen PT 14.0 (11.1-14.7) Seconds INR 1.0 APTT 24.4 (22.3-36.8) Seconds D-Dimer 2.62 H Cancelled (<0.48) ug/mL Sodium 135 L (137-145) mmol/L Potassium 4.6 (3.4-5.0) mmol/L Chloride 98 (98-107) mmol/L Carbon Dioxide 32 H (22-30) mmol/L Anion Gap 5 (4-12) mmol/L BUN 21 H (7-17) mg/dL Creatinine 5.90 H (0.7-1.0) mg/dL Estim Creat Clear Calc 8 ml/min Estimated GFR 7 L (59 - ) Glucose 114 H (65-110) mg/dL Calcium 9.2 (8.4-10.2) mg/dL Magnesium (1.6-2.3) mg/dL Total Bilirubin 1.0 (0.2-1.3) mg/dL AST 28 (14-36) U/L ALT 15 (6-35) U/L Alkaline Phosphatase 68 (38-126) U/L Troponin I 0.024 (0.000-0.034) ng/mL NT-Pro-B Natriuret Pep 1130 H (19.9-100) pg/mL Total Protein 8.0 (6.3-8.2) g/dL Albumin 4.5 (3.5-5.1) g/dL Lipase 263 (23-300) U/L Nasal MRSA (PCR) (NOT DETECTE) Random Vancomycin (10-20) ug/mL Influenza A (RT-PCR) (Negative) Influenza B (RT-PCR) (Negative) Mycoplasma pneumon IgM SARS-CoV-2 RNA (RT-PCR) (Negative) 03/12/24 03/12/24 03/12/24 Range/Units 18:47 20:34 22:14 WBC (4.5-10.0) K/mm3 RBC (4.2-5.4) M/mm3 Hgb (12.0-15.0) g/dL Hct (37.0-47.0) % MCV (80-100) fl MCH (26-34) pg MCHC (32-36) g/dl RDW (11.5-14.5) % Plt Count (150-375) k/mm3 MPV (7.4-10.4) fl Immature Gran % (Auto) (0-0.5) % Neut % (Auto) (45.5-73.1) % Lymph % (Auto) (18.3-44.2) % Frio % (Auto) (2.6-8.5) % Eos % (Auto) (0-4.4) % Baso % (Auto) (0.2-1.2) % Lymph # (Auto) (0.9-3.2) K/mm3 Frio # (Auto) (0.1-0.6) K/mm3 Eos # (Auto) (0-0.3) K/mm3 Baso # (Auto) (0.0-0.1) K/mm3 Abs Immat Gran (auto) (0.00-0.031) K/mm3 Absolute Neuts (auto) (1.3-6.7) K/mm3 Absolute Nucleated RBC (0.0-0.012) K/mm3 Nucleated RBC % (0.0-0.2) % Platelet Estimate (Adequate) Anisocytosis Macrocytosis (NORMAL) Schistocytes PT (11.1-14.7) Seconds INR APTT (22.3-36.8) Seconds D-Dimer (<0.48) ug/mL Sodium (137-145) mmol/L Potassium (3.4-5.0) mmol/L Chloride (98-107) mmol/L Carbon Dioxide (22-30) mmol/L Anion Gap (4-12) mmol/L BUN (7-17) mg/dL Creatinine (0.7-1.0) mg/dL Estim Creat Clear Calc ml/min Estimated GFR (59 - ) Glucose (65-110) mg/dL Calcium (8.4-10.2) mg/dL Magnesium (1.6-2.3) mg/dL Total Bilirubin (0.2-1.3) mg/dL AST (14-36) U/L ALT (6-35) U/L Alkaline Phosphatase (38-126) U/L Troponin I 0.022 (0.000-0.034) ng/mL NT-Pro-B Natriuret Pep (19.9-100) pg/mL Total Protein (6.3-8.2) g/dL Albumin (3.5-5.1) g/dL Lipase (23-300) U/L Nasal MRSA (PCR) Not detected Not detected (NOT DETECTE) Random Vancomycin (10-20) ug/mL Influenza A (RT-PCR) Negative (Negative) Influenza B (RT-PCR) Negative (Negative) Mycoplasma pneumon IgM SARS-CoV-2 RNA (RT-PCR) Negative (Negative) 03/13/24 03/13/24 Range/Units 05:07 05:55 WBC 7.9 (4.5-10.0) K/mm3 RBC 3.33 L (4.2-5.4) M/mm3 Hgb 11.4 L (12.0-15.0) g/dL Hct 35.8 L (37.0-47.0) % MCV 107.5 H (80-100) fl MCH 34.2 H (26-34) pg MCHC 31.8 L (32-36) g/dl RDW 15.1 H (11.5-14.5) % Plt Count 216 (150-375) k/mm3 MPV 10.4 (7.4-10.4) fl Immature Gran % (Auto) (0-0.5) % Neut % (Auto) (45.5-73.1) % Lymph % (Auto) (18.3-44.2) % Frio % (Auto) (2.6-8.5) % Eos % (Auto) (0-4.4) % Baso % (Auto) (0.2-1.2) % Lymph # (Auto) (0.9-3.2) K/mm3 Frio # (Auto) (0.1-0.6) K/mm3 Eos # (Auto) (0-0.3) K/mm3 Baso # (Auto) (0.0-0.1) K/mm3 Abs Immat Gran (auto) (0.00-0.031) K/mm3 Absolute Neuts (auto) (1.3-6.7) K/mm3 Absolute Nucleated RBC (0.0-0.012) K/mm3 Nucleated RBC % (0.0-0.2) % Platelet Estimate (Adequate) Anisocytosis Macrocytosis (NORMAL) Schistocytes PT (11.1-14.7) Seconds INR APTT (22.3-36.8) Seconds D-Dimer (<0.48) ug/mL Sodium 132 L (137-145) mmol/L Potassium 3.8 (3.4-5.0) mmol/L Chloride 98 (98-107) mmol/L Carbon Dioxide 28 (22-30) mmol/L Anion Gap 6 (4-12) mmol/L BUN 23 H (7-17) mg/dL Creatinine 7.30 H (0.7-1.0) mg/dL Estim Creat Clear Calc 6 ml/min Estimated GFR 5 L (59 - ) Glucose 86 (65-110) mg/dL Calcium 8.6 (8.4-10.2) mg/dL Magnesium 2.2 (1.6-2.3) mg/dL Total Bilirubin (0.2-1.3) mg/dL AST (14-36) U/L ALT (6-35) U/L Alkaline Phosphatase (38-126) U/L Troponin I (0.000-0.034) ng/mL NT-Pro-B Natriuret Pep (19.9-100) pg/mL Total Protein (6.3-8.2) g/dL Albumin (3.5-5.1) g/dL Lipase (23-300) U/L Nasal MRSA (PCR) (NOT DETECTE) Random Vancomycin 28.4 H (10-20) ug/mL Influenza A (RT-PCR) (Negative) Influenza B (RT-PCR) (Negative) Mycoplasma pneumon IgM Pending SARS-CoV-2 RNA (RT-PCR) (Negative) <Maggie Rowland PA-C - Last Filed: 03/13/24 09:34> Lab Results 03/12/24 03/12/24 03/12/24 Range/Units 16:35 16:40 16:40 WBC 9.3 (4.5-10.0) K/mm3 RBC 4.02 L (4.2-5.4) M/mm3 Hgb 14.0 (12.0-15.0) g/dL Hct 43.1 (37.0-47.0) % MCV 107.2 H (80-100) fl MCH 34.8 H (26-34) pg MCHC 32.5 (32-36) g/dl RDW 15.4 H (11.5-14.5) % Plt Count 230 (150-375) k/mm3 MPV 10.7 H (7.4-10.4) fl Immature Gran % (Auto) 0.4 (0-0.5) % Neut % (Auto) 71.6 (45.5-73.1) % Lymph % (Auto) 17.2 L (18.3-44.2) % Frio % (Auto) 8.5 (2.6-8.5) % Eos % (Auto) 1.7 (0-4.4) % Baso % (Auto) 0.6 (0.2-1.2) % Lymph # (Auto) 1.59 (0.9-3.2) K/mm3 Frio # (Auto) 0.8 H (0.1-0.6) K/mm3 Eos # (Auto) 0.2 (0-0.3) K/mm3 Baso # (Auto) 0.1 (0.0-0.1) K/mm3 Abs Immat Gran (auto) 0.04 H (0.00-0.031) K/mm3 Absolute Neuts (auto) 6.6 (1.3-6.7) K/mm3 Absolute Nucleated RBC 0.000 (0.0-0.012) K/mm3 Nucleated RBC % 0.0 (0.0-0.2) % Platelet Estimate Adequate (Adequate) Anisocytosis 2+ Macrocytosis 1+ (NORMAL) Schistocytes None seen PT 14.0 (11.1-14.7) Seconds INR 1.0 APTT 24.4 (22.3-36.8) Seconds D-Dimer 2.62 H Cancelled (<0.48) ug/mL Sodium 135 L (137-145) mmol/L Potassium 4.6 (3.4-5.0) mmol/L Chloride 98 (98-107) mmol/L Carbon Dioxide 32 H (22-30) mmol/L Anion Gap 5 (4-12) mmol/L BUN 21 H (7-17) mg/dL Creatinine 5.90 H (0.7-1.0) mg/dL Estim Creat Clear Calc 8 ml/min Estimated GFR 7 L (59 - ) Glucose 114 H (65-110) mg/dL Calcium 9.2 (8.4-10.2) mg/dL Magnesium (1.6-2.3) mg/dL Total Bilirubin 1.0 (0.2-1.3) mg/dL AST 28 (14-36) U/L ALT 15 (6-35) U/L Alkaline Phosphatase 68 (38-126) U/L Troponin I 0.024 (0.000-0.034) ng/mL NT-Pro-B Natriuret Pep 1130 H (19.9-100) pg/mL Total Protein 8.0 (6.3-8.2) g/dL Albumin 4.5 (3.5-5.1) g/dL Lipase 263 (23-300) U/L Nasal MRSA (PCR) (NOT DETECTE) Random Vancomycin (10-20) ug/mL Influenza A (RT-PCR) (Negative) Influenza B (RT-PCR) (Negative) Mycoplasma pneumon IgM SARS-CoV-2 RNA (RT-PCR) (Negative) 03/12/24 03/12/24 03/12/24 Range/Units 18:47 20:34 22:14 WBC (4.5-10.0) K/mm3 RBC (4.2-5.4) M/mm3 Hgb (12.0-15.0) g/dL Hct (37.0-47.0) % MCV (80-100) fl MCH (26-34) pg MCHC (32-36) g/dl RDW (11.5-14.5) % Plt Count (150-375) k/mm3 MPV (7.4-10.4) fl Immature Gran % (Auto) (0-0.5) % Neut % (Auto) (45.5-73.1) % Lymph % (Auto) (18.3-44.2) % Frio % (Auto) (2.6-8.5) % Eos % (Auto) (0-4.4) % Baso % (Auto) (0.2-1.2) % Lymph # (Auto) (0.9-3.2) K/mm3 Frio # (Auto) (0.1-0.6) K/mm3 Eos # (Auto) (0-0.3) K/mm3 Baso # (Auto) (0.0-0.1) K/mm3 Abs Immat Gran (auto) (0.00-0.031) K/mm3 Absolute Neuts (auto) (1.3-6.7) K/mm3 Absolute Nucleated RBC (0.0-0.012) K/mm3 Nucleated RBC % (0.0-0.2) % Platelet Estimate (Adequate) Anisocytosis Macrocytosis (NORMAL) Schistocytes PT (11.1-14.7) Seconds INR APTT (22.3-36.8) Seconds D-Dimer (<0.48) ug/mL Sodium (137-145) mmol/L Potassium (3.4-5.0) mmol/L Chloride (98-107) mmol/L Carbon Dioxide (22-30) mmol/L Anion Gap (4-12) mmol/L BUN (7-17) mg/dL Creatinine (0.7-1.0) mg/dL Estim Creat Clear Calc ml/min Estimated GFR (59 - ) Glucose (65-110) mg/dL Calcium (8.4-10.2) mg/dL Magnesium (1.6-2.3) mg/dL Total Bilirubin (0.2-1.3) mg/dL AST (14-36) U/L ALT (6-35) U/L Alkaline Phosphatase (38-126) U/L Troponin I 0.022 (0.000-0.034) ng/mL NT-Pro-B Natriuret Pep (19.9-100) pg/mL Total Protein (6.3-8.2) g/dL Albumin (3.5-5.1) g/dL Lipase (23-300) U/L Nasal MRSA (PCR) Not detected Not detected (NOT DETECTE) Random Vancomycin (10-20) ug/mL Influenza A (RT-PCR) Negative (Negative) Influenza B (RT-PCR) Negative (Negative) Mycoplasma pneumon IgM SARS-CoV-2 RNA (RT-PCR) Negative (Negative) 03/13/24 03/13/24 Range/Units 05:07 05:55 WBC 7.9 (4.5-10.0) K/mm3 RBC 3.33 L (4.2-5.4) M/mm3 Hgb 11.4 L (12.0-15.0) g/dL Hct 35.8 L (37.0-47.0) % MCV 107.5 H (80-100) fl MCH 34.2 H (26-34) pg MCHC 31.8 L (32-36) g/dl RDW 15.1 H (11.5-14.5) % Plt Count 216 (150-375) k/mm3 MPV 10.4 (7.4-10.4) fl Immature Gran % (Auto) (0-0.5) % Neut % (Auto) (45.5-73.1) % Lymph % (Auto) (18.3-44.2) % Frio % (Auto) (2.6-8.5) % Eos % (Auto) (0-4.4) % Baso % (Auto) (0.2-1.2) % Lymph # (Auto) (0.9-3.2) K/mm3 Frio # (Auto) (0.1-0.6) K/mm3 Eos # (Auto) (0-0.3) K/mm3 Baso # (Auto) (0.0-0.1) K/mm3 Abs Immat Gran (auto) (0.00-0.031) K/mm3 Absolute Neuts (auto) (1.3-6.7) K/mm3 Absolute Nucleated RBC (0.0-0.012) K/mm3 Nucleated RBC % (0.0-0.2) % Platelet Estimate (Adequate) Anisocytosis Macrocytosis (NORMAL) Schistocytes PT (11.1-14.7) Seconds INR APTT (22.3-36.8) Seconds D-Dimer (<0.48) ug/mL Sodium 132 L (137-145) mmol/L Potassium 3.8 (3.4-5.0) mmol/L Chloride 98 (98-107) mmol/L Carbon Dioxide 28 (22-30) mmol/L Anion Gap 6 (4-12) mmol/L BUN 23 H (7-17) mg/dL Creatinine 7.30 H (0.7-1.0) mg/dL Estim Creat Clear Calc 6 ml/min Estimated GFR 5 L (59 - ) Glucose 86 (65-110) mg/dL Calcium 8.6 (8.4-10.2) mg/dL Magnesium 2.2 (1.6-2.3) mg/dL Total Bilirubin (0.2-1.3) mg/dL AST (14-36) U/L ALT (6-35) U/L Alkaline Phosphatase (38-126) U/L Troponin I (0.000-0.034) ng/mL NT-Pro-B Natriuret Pep (19.9-100) pg/mL Total Protein (6.3-8.2) g/dL Albumin (3.5-5.1) g/dL Lipase (23-300) U/L Nasal MRSA (PCR) (NOT DETECTE) Random Vancomycin 28.4 H (10-20) ug/mL Influenza A (RT-PCR) (Negative) Influenza B (RT-PCR) (Negative) Mycoplasma pneumon IgM Pending SARS-CoV-2 RNA (RT-PCR) (Negative) <Violet Silverio PA-C - Last Filed: 03/12/24 21:05> Imaging Data Radiologist's impression: ITS Impressions Chest X-Ray 03/12/24 16:09 IMPRESSION: 1. Stable airspace opacities in the lower lung zones, likely atelectasis/scarring. Chest CTA 03/12/24 19:43 IMPRESSION: 1. Right lower lobe pneumonia. 2. 2.1 cm nodule in right lung lower lobe, which may be infection. Noncontrast low-dose chest CT is recommended in 1-3 months to exclude malignancy. 3. No pulmonary embolus. 4. Mild emphysema. 5. Healing fractures of right 10th and 11th ribs. <Maggie Rowland PA-C - Last Filed: 03/13/24 09:34> ECG Data EKG #1: ECG completion date: 03/12/24 <FABIANA Uribe Last Filed: 03/13/24 09:34> EKG Interpretation: normal rate, sinus rhythm, no ST changes and normal QT <FABIANA Uribe Last Filed: 03/13/24 09:34> Critical Care Time Critical Care Time Critical Care Time: Yes <FABIANA Uribe Last Filed: 03/13/24 09:34> Total Critical Care Time: 35 <FABIANA Uribe Last Filed: 03/13/24 09:34> Discharge Plan Discharge Clinical Impression: Acute hypoxic respiratory failure, ESRD (end stage renal disease) on dialysis, Nodule of lower lobe of right lung Pneumonia Qualifiers: Pneumonia type: due to unspecified organism Laterality: right Lung location: lower lobe of lung Qualified Code(s): J18.9 - Pneumonia, unspecified organism <FABIANA Uribe Last Filed: 03/13/24 09:34> Patient Disposition: Still a Patient <FABIANA Uribe Last Filed: 03/13/24 09:34> Condition: Stable <FABIANA Uribe Last Filed: 03/13/24 09:34>
[2024-03-12 16:40] LABS: Basophils Absolute Auto 0.1 K/mm3 (0.0-0.1); Basophils Percent Auto 0.6 % (0.2-1.2); Eosinophils Absolute Auto 0.2 K/mm3 (0-0.3); Eosinophils Percent Auto 1.7 % (0-4.4); Hematocrit 43.1 % (37.0-47.0); Immature Granulocyte Absolute 0.04 K/mm3 (0.00-0.031); Immature Granulocyte Percent A 0.4 % (0-0.5); Lymphocytes Absolute Auto 1.59 K/mm3 (0.9-3.2); Lymphocytes Percent Auto 17.2 % (18.3-44.2); Mean Corpuscular HGB Conc 32.5 g/dl (32-36); Mean Corpuscular Hemoglobin 34.8 pg (26-34); Mean Corpuscular Volume 107.2 fl (80-100); Mean Platelet Volume 10.7 fl (7.4-10.4); Monocytes Absolute Auto 0.8 K/mm3 (0.1-0.6); Monocytes Percent Auto 8.5 % (2.6-8.5); Neutrophils Absolute Auto 6.6 K/mm3 (1.3-6.7); Neutrophils Percent Auto 71.6 % (45.5-73.1); Platelet Count Result 230 k/mm3 (150-375); Red Blood Count 4.02 M/mm3 (4.2-5.4); Red Cell Distribution Width 15.4 % (11.5-14.5); White Blood Count 9.3 K/mm3 (4.5-10.0)
[2024-03-12 16:51] LABS: Alanine Aminotransferase 15 U/L (6-35); Albumin Level 4.5 g/dL (3.5-5.1); Alkaline Phosphatase 68 U/L (38-126); Anion Gap 5 mmol/L (4-12); Aspartate Amino Transferase 28 U/L (14-36); Blood Urea Nitrogen 21 mg/dL (7-17); Calcium 9.2 mg/dL (8.4-10.2); Carbon Dioxide 32 mmol/L (22-30); Chloride 98 mmol/L (98-107); Estimated CRCL calculation 8 ml/min; Estimated Glomerular Filt Rate 7; Glucose 114 mg/dL (65-110); Lipase 263 U/L (23-300); Potassium 4.6 mmol/L (3.4-5.0); Sodium 135 mmol/L (137-145)
[2024-03-12 16:59] LABS: Partial Thromboplastin Time 24.4 Seconds (22.3-36.8)
[2024-03-12 17:01] LABS: NT Pro B Type Natriuretic Pept 1130 pg/mL (19.9-100); Troponin I 0.024 ng/mL (0.000-0.034)
[2024-03-12 17:06] LABS: Platelet Estimate Adequate (Adequate); Schistocytes None Seen
[2024-03-12 17:07] LABS: Anisocytosis 2+; Macrocytosis 1+ (NORMAL)
[2024-03-12 17:17] LABS: D Dimer 2.62 ug/mL (<0.48)
--- NOTE | 2024-03-12 18:42 | ECG_ITS ---
Test Date: 2024-03-12 18:45:36 Measurements Intervals [place] Rate: 83 P: 17 FL: 124 QRS: -79 QRSD: 92 T: 56 QT: 407 QTc: 480 Interpretive Statements SINUS RHYTHM LEFT ANTERIOR FASCICULAR BLOCK [QRS AXIS <= -45, QR IN I, RS IN II] POSSIBLE ANTERIOR MYOCARDIAL INFARCTION , OF INDETERMINATE AGE [30 ms Q WAVE IN V3/V4, OR R < 0.2 mV IN V4] old inferior MA Compared to ECG 03/12/2024 15:53:30 Left anterior fascicular block now present Myocardial infarct finding still present Electronically Signed On 03-12-2024 20:39:14 [employer] by Frederick West M.D.
[2024-03-12 19:14] LABS: Troponin I 0.022 ng/mL (0.000-0.034)
--- NOTE | 2024-03-12 20:31 | PC.NURSE ---
This RN attempted to poke pt for blood cultures at this time. Our culture media laboratory assistant Kellee attempted twice. We had no luck. Pt has a limb alert on her left arm so pt is only allowed to be poked in right arm. Pt has small fragile veins that blow easily. neonatal doctor notified and verbally states we can call [facility]. [facility] was called at ths time and states they will be down.
--- NOTE | 2024-03-12 21:05 | PC.NURSE ---
[facility] states they were unsuccessful as well to draw blood cultures from pt.
--- NOTE | 2024-03-12 21:26 | ADMGEN ---
This patient, Trisha Waite, was admitted to Medical Room 255-01. Patient/family oriented to hospital policies and general routines including ID bracelet, bed and alarms, visiting hours, pain management, procedures, bathroom and other care routines, personal items, smoking policy, room service/diet, and visiting hours. Information on how to activate the Rapid Response Team has been discussed. Patient/Family are encouraged to report perceived risks to care and to ask questions if they do not understand what they are told or what they should do.
--- NOTE | 2024-03-12 21:29 | P.HP_ITS ---
H&P: HPI History of Present Illness Date/Time: 03/12/24 21:29 Chief Complaint: Shortness of breath Narrative: This is a 73-year-old female with past medical history significant for end-stage renal disease on hemodialysis, hypertension, dyslipidemia, COPD, QT prolongation, oropharyngeal dysphagia, gait abnormality, stroke, right-sided hemiparesis. Patient resides at a custodial facility. Brought to the [facility] room due to low pulse ox. Patient coincidentally released from hospital on the 11 of March after she was treated for what appears to be aspiration pneumonia however patient had episode of hypoxia with low pulse ox at custodial and was brought to the emergency room for evaluation. Patient is unable to contribute in a meaningful way states that she only had shortness of breath. Denies any cough or sputum production. Preliminary workup was significant for CT chest PE protocol was rule out for acute pulmonary embolism patient was found to have a right lower lobe pneumonia. At the time of my visit patient was on 2 L of oxygen by nasal cannula. EXAMINATION: XR chest 1V portable DATE: 03/12/2024 16:05 INDICATION: Shortness of breath. Chest pain. TECHNIQUE: A single frontal view of the chest was obtained. COMPARISON: Chest single view 03/07/2024 FINDINGS: There are airspace opacities in the lower lung zones. No pleural effusion or pneumothorax. The heart size is normal. A left internal jugular central venous catheter is seen with tip in right atrium. An electronic implant overlies left chest. There is a total right shoulder arthroplasty. There are old healed right rib fractures. IMPRESSION: 1. Stable airspace opacities in the lower lung zones, likely atelectasis/scarring. EXAMINATION: CTA chest PE protocol DATE: 03/12/2024 19:39 INDICATION: Chest pain. Shortness of breath. TECHNIQUE: Computed tomography angiography (CTA) of the chest was performed with 100 mL Omnipaque-350 intravenous contrast timed to evaluate the pulmonary arter ies. Coronal maximum intensity projection 3D-reconstructions were created by the technologist. Automated exposure control and iterative reconstruction technique were employed. The dose-length product was 659.66 mGy-cm. COMPARISON: Chest single view 03/12/2024 FINDINGS: There is mild emphysema. There is mild atelectasis in the inferior lungs. There are airspace opacities in right lower lobe. There is a 2.1 cm nodule in right lower lobe. There is material in the right lower lobe bronchi which may be mucous plugging or aspirated material. No pleural effusion. The heart size is normal. There are coronary artery calcifications. No pericardial effusion. There is no pulmonary embolus. There are gallstones in the gallbladder which is normal in size. There is moderate atrophy of right kidney and severe atrophy of left kidney. There is a 10 mm mass in right kidney. There is a 9 mm mass in left kidney. There are healing fractures of right 11th and 10th and 11th ribs with callus. There are old healed bilateral rib fractures. There is moderate thoracic spondylosis. A left internal jugular central venous catheter is seen with tip in the proximal right atrium. IMPRESSION: 1. Right lower lobe pneumonia. 2. 2.1 cm nodule in right lung lower lobe, which may be infection. Noncontrast low-dose chest CT is recommended in 1-3 months to exclude malignancy. 3. No pulmonary embolus. 4. Mild emphysema. 5. Healing fractures of right 10th and 11th ribs. Review of Systems Review of Systems: Shortness of breath PMFSH Past Medical History Medical History (Updated 03/12/24 @ 21:47 by Ana Mcintyre PA-C) Chronic obstructive pulmonary disease Cerebrovascular accident residual short-term memory loss and right-sided weakness QT prolongation Anemia in chronic kidney disease (CKD) Oropharyngeal dysphagia Gait abnormality Hyperlipidemia Hypertension Depression Nephrolithiasis Osteoarthritis End stage renal disease Surgical History Surgical History History of right shoulder replacement History of left knee replacement Status post creation of arteriovenous fistula Bilateral upper arms with the right being the oldest, there is wound site on the left but the facial itself has no palpable thrill and no bruit on auscultation Family History Family History Other Unknown family medical history Social History Social History (Updated 03/12/24 @ 21:44 by Ana Mcintyre PA-C) Social History: Surrogate medical decision maker: Demond Hightower, son. Code status: Full code. Smoking status: Former smoker Tobacco type: cigarettes Smoking end date: 02/28/14 Alcohol intake: never Substance use: never Substance use type: marijuana Other substance usage details: GUMMIES Do You Feel Safe in your Home?: Yes Lack of Transportation: No Lack of Food: Never True Current Housing: I Have Housing Concerned About Future Housing: No Difficulty Paying Gas/Electric Bills: No Difficulty Paying for Meds: No Currently Unemployed: No Education: High School Diploma/GED Difficulty w/ Childcare or Family Care: No Living arrangements: with family Spiritual care concerns: No Meds Home Medications and Allergies Home Medications ?Medication ?Instructions ?Recorded ?Confirmed ?Type aspirin 81 mg tablet,delayed 81 mg PO DAILY 07/24/22 03/12/24 History release (Adult Low Dose Aspirin) cholecalciferol (vitamin D3) 125 125 mcg PO DAILY 01/10/23 03/12/24 History mcg (5,000 unit) tablet gabapentin 100 mg capsule 100 mg PO TID 01/10/23 03/12/24 History sevelamer HCl 800 mg tablet 800 mg PO TID 02/29/24 03/12/24 History hydralazine 25 mg tablet 25 mg PO Q6H PRN SBP greater than 03/08/24 03/12/24 History 160 ipratropium 0.5 mg-albuterol 3 mg 3 ml inhalation BID PRN SOB 03/08/24 03/12/24 History (2.5 mg base)/3 mL nebulization soln pantoprazole 40 mg tablet,delayed 40 mg PO QAM 03/08/24 03/12/24 History release acetaminophen 325 mg tablet 650 mg (2 x 325 mg) PO Q6H PRN 03/11/24 03/12/24 Rx Mild Pain (1-3) Or Fever #30 tabs amoxicillin 250 mg-potassium 1 tablet PO Q12H #7 tabs 03/11/24 03/12/24 Rx clavulanate 125 mg tablet atorvastatin 40 mg tablet 40 mg PO DAILY #30 tabs 03/11/24 03/12/24 Rx Allergies Allergy/AdvReac Type Severity Reaction Status Date / Time No Known Allergies Allergy Verified 01/12/23 07:34 Vital Signs Vital Signs - 24 hr 03/12/24 15:27 03/12/24 15:45 03/12/24 16:32 Temperature 98.2 F Pulse Rate 79 90 Respiratory Rate 20 20 Blood Pressure 129/54 L Pulse Oximetry 89 L 89 L 95 Oxygen Delivery Room Air Room Air Oxygen Flow Rate 03/12/24 16:37 03/12/24 17:02 03/12/24 18:11 Temperature Pulse Rate 84 Respiratory Rate 20 20 Blood Pressure 119/86 Pulse Oximetry 95 95 95 Oxygen Delivery Nasal Cannula Oxygen Flow Rate 2 2 03/12/24 20:21 Temperature Pulse Rate 87 Respiratory Rate 16 Blood Pressure 116/85 Pulse Oximetry 96 Oxygen Delivery Oxygen Flow Rate Exam Narrative: Laying in bed Const: General: cooperative, comfortable, no acute distress, well developed, alert, awake, ill appearing chronically and average body habitus Nutritional Appearance: average body habitus Orientation/consciousness: oriented to person and oriented to place HENMT: Head: normal to inspection, normocephalic and atraumatic Ears: hearing grossly normal bilaterally Face/Nose/Sinus: normal facial exam Face and sinus: normal facial exam Eyes: General: appearance normal, both eyes and all related structures Pupils: Equal, round and reactive pupils present EOM: EOMs intact bilaterally Neck: Neck: full ROM, no lymphadenopathy and no JVD Thyroid: thyroid normal Lymphatic: no lymphadenopathy noted Chest: Chest palpation & inspection: other (Left subclavian dialysis catheter) Resp: Effort & Inspection: normal respiratory effort and able to speak in complete sentences Auscultation: clear to auscultation bilaterally Cardio: Jugular venous distension: no JVD Rate: regular rate Rhythm: regular rhythm Heart sounds: S1 normal heart sound present and S2 normal heart sound present GI: GI Palp: Yes Soft to palpation and Yes No hepatosplenomegaly present : General: Yes deferred Skin: Rashes: no rashes Wounds: no wounds Neuro: General: patient oriented x3 and CN's II-XI intact bilaterally Cranial nerves: Yes CN's II-XII intact bilaterally and Yes Equal, round and reactive pupils present Cognition (Neuro): normal cognition Speech: normal speech Gait exam (Neuro): Unable to assess gait Motor exam (neuro): 5/5 motor strength present throughout Extrem: General: normal to inspection, full ROM, no joint enlargement and no pedal edema H&P: Results Labs Labs: Short CBC 03/12/24 Range/Units 16:35 WBC 9.3 (4.5-10.0) K/mm3 Hgb 14.0 (12.0-15.0) g/dL Hct 43.1 (37.0-47.0) % Plt Count 230 (150-375) k/mm3 [facility] 03/12/24 16:35 Sodium 135 L Potassium 4.6 Chloride 98 Carbon Dioxide 32 H BUN 21 H Creatinine 5.90 H Glucose 114 H Calcium 9.2 Cardiac Enzymes 03/12/24 03/12/24 Range/Units 16:35 18:47 Troponin I 0.024 0.022 (0.000-0.034) ng/mL Liver Function 03/12/24 Range/Units 16:35 Total Bilirubin 1.0 (0.2-1.3) mg/dL AST 28 (14-36) U/L ALT 15 (6-35) U/L Alkaline Phosphatase 68 (38-126) U/L Albumin 4.5 (3.5-5.1) g/dL Assessment and Plan Assessment and plan (1) Acute hypoxic respiratory failure: Code(s): J96.01 - Acute respiratory failure with hypoxia Status: Acute Assessment and Plan: On supplemental oxygen by nasal cannula Continuous pulse ox Try and keep oxygen saturation at 94% Wean off of oxygen as needed (2) Pneumonia: Qualifiers: Laterality: right Lung location: lower lobe of lung Pneumonia type: due to unspecified organism Qualified Code(s): J18.9 - Pneumonia, unspecified organism Code(s): J18.9 - Pneumonia, unspecified organism Status: Acute Assessment and Plan: Patient started on vancomycin cefepime and Zithromax Cultures in progress (3) End-stage renal disease on hemodialysis: Code(s): N18.6 - End stage renal disease; Z99.2 - Dependence on renal dialysis Status: Acute Assessment and Plan: Continue dialysis Nephrology consult (4) Hemiparesis affecting right side as late effect of stroke: Code(s): I69.351 - Hemiplegia and hemiparesis following cerebral infarction affecting right dominant side Status: Acute Assessment and Plan: Fall precautions Hospitalist MIPS Advance Care Plan I have confirmed that the patient's Advanced Care Plan is present, code status is documented, or surrogate decision maker is listed in patient medical record.: Yes Medication Reconciliation I have utilized all available resources to obtain, update and review the patients current medications (includes all prescriptions, OTC, herbals, cannabis, and nutritional supplements).: Yes
--- NOTE | 2024-03-12 21:40 | PM.IMHP ---
H&P: HPI History of Present Illness Date/Time: 03/12/24 20:30 Chief Complaint: Low oxygen saturations. Narrative: This is a 73-year-old female with history of stroke, atrial fibrillation, chronic obstructive pulmonary disease, end-stage renal disease on hemodialysis, and oropharyngeal dysphagia with history of aspiration who presented to the emergency department via EMS from [facility] for evaluation of low oxygen saturations. The patient suffers from short-term memory loss from a prior stroke and is able to provide a fair history though some of the following is supplemented via a review of her electronic medical records. She was recently admitted to the hospital with aspiration pneumonia and in fact was discharged back to rehab yesterday on Augmentin and she had no oxygen requirement at that time. Today she was found to have an SpO2 of 89% on room air and she was brought back to the emergency department. The patient reports a dry cough but she has no other complaints and she specifically denies headache, fever, chills, sweats, sinus congestion, sore throat, chest pain, pleuritic pain, palpitations, anorexia, nausea, vomiting, and diarrhea. She denies concerns for aspiration since discharge. In the ED: Vital signs were stable on arrival. Labs are significant for WBC count of 9.3, D-dimer 2.62, sodium 132, carbon dioxide 32, BUN 21, creatinine 5.90, troponin 0.024, proBNP 1130. Chest CTA was negative for pulmonary embolism but did show a right lower lobe pneumonia and a 2.1 cm nodule in the right lower lobe which may be infection. She was given a dose of azithromycin, cefepime, and vancomycin and she is being admitted in this setting. Review of Systems Review of Systems: 12 systems were reviewed and are negative except for as per HPI. [facility] Past Medical History Medical History (Updated 03/12/24 @ 21:47 by Ana Mcintyre PA-C) Chronic obstructive pulmonary disease Cerebrovascular accident residual short-term memory loss and right-sided weakness QT prolongation Anemia in chronic kidney disease (CKD) Oropharyngeal dysphagia Gait abnormality Hyperlipidemia Hypertension Depression Nephrolithiasis Osteoarthritis End stage renal disease Surgical History Surgical History History of right shoulder replacement History of left knee replacement Status post creation of arteriovenous fistula Bilateral upper arms with the right being the oldest, there is wound site on the left but the facial itself has no palpable thrill and no bruit on auscultation Family History Family History Other Unknown family medical history Social History Social History (Updated 03/12/24 @ 21:44 by Ana Mcintyre PA-C) Social History: Surrogate medical decision maker: Demond Hightower, son. Code status: Full code. Smoking status: Former smoker Tobacco type: cigarettes Smoking end date: 02/28/14 Alcohol intake: never Substance use: never Substance use type: marijuana Other substance usage details: GUMMIES Do You Feel Safe in your Home?: Yes Lack of Transportation: No Lack of Food: Never True Current Housing: I Have Housing Concerned About Future Housing: No Difficulty Paying Gas/Electric Bills: No Difficulty Paying for Meds: No Currently Unemployed: No Education: High School Diploma/GED Difficulty w/ Childcare or Family Care: No Living arrangements: with family Spiritual care concerns: No Meds Home Medications and Allergies Home Medications ?Medication ?Instructions ?Recorded ?Confirmed ?Type aspirin 81 mg tablet,delayed 81 mg PO DAILY 07/24/22 03/08/24 History release (Adult Low Dose Aspirin) cholecalciferol (vitamin D3) 125 125 mcg PO DAILY 01/10/23 03/08/24 History mcg (5,000 unit) tablet gabapentin 100 mg capsule 100 mg PO TID 01/10/23 03/08/24 History sevelamer HCl 800 mg tablet 800 mg PO TID 02/29/24 03/08/24 History hydralazine 25 mg tablet 25 mg PO Q6H PRN SBP greater than 03/08/24 03/08/24 History 160 ipratropium 0.5 mg-albuterol 3 mg 3 ml inhalation BID PRN SOB 03/08/24 03/08/24 History (2.5 mg base)/3 mL nebulization soln pantoprazole 40 mg tablet,delayed 40 mg PO QAM 03/08/24 03/08/24 History release acetaminophen 325 mg tablet 650 mg (2 x 325 mg) PO Q6H PRN 03/11/24 Rx Mild Pain (1-3) Or Fever #30 tabs amoxicillin 250 mg-potassium 1 tablet PO Q12H #7 tabs 03/11/24 Rx clavulanate 125 mg tablet atorvastatin 40 mg tablet 40 mg PO DAILY #30 tabs 03/11/24 Rx Allergies Allergy/AdvReac Type Severity Reaction Status Date / Time No Known Allergies Allergy Verified 01/12/23 07:34 Vital Signs Vital Signs - 24 hr 03/12/24 15:27 03/12/24 15:45 03/12/24 16:32 Temperature 98.2 F Pulse Rate 79 90 Respiratory Rate 20 20 Blood Pressure 129/54 L Pulse Oximetry 89 L 89 L 95 Oxygen Delivery Room Air Room Air Oxygen Flow Rate 03/12/24 16:37 03/12/24 17:02 03/12/24 18:11 Temperature Pulse Rate 84 Respiratory Rate 20 20 Blood Pressure 119/86 Pulse Oximetry 95 95 95 Oxygen Delivery Nasal Cannula Oxygen Flow Rate 2 2 03/12/24 20:21 Temperature Pulse Rate 87 Respiratory Rate 16 Blood Pressure 116/85 Pulse Oximetry 96 Oxygen Delivery Oxygen Flow Rate Exam Narrative: General: Chronically ill-appearing female in the semi-[place] position in bed. Weight: 74.3 kg. BMI: 25.7. HEENT: PERRL, EOMI. Sclera anicteric. Tacky mucous membranes. Neck: Supple. Respiratory: Respirations are nonlabored she is speaking in full sentences. Occasional harsh, dry cough. Lung sounds are diminished throughout with end-expiratory wheezing and scattered withdrawals at the right base. Cardiovascular: Regular rate and rhythm with S1-S2. Chest: Dialysis catheter in the left anterior chest. Gastrointestinal: Abdomen is soft, nontender, and nondistended with positive bowel sounds. Skin: Warm and dry. Generalized pallor. Extremities: No cyanosis, clubbing, or significant edema. Radial and pedal pulses intact. Neurological: Alert. Cranial nerves 2-12 are grossly intact. Mild right-sided weakness. Psychiatric: Pleasant and cooperative with appropriate mood. Suffers from short-term memory loss. H&P: Results Labs Labs: Short CBC 03/12/24 Range/Units 16:35 WBC 9.3 (4.5-10.0) K/mm3 Hgb 14.0 (12.0-15.0) g/dL Hct 43.1 (37.0-47.0) % Plt Count 230 (150-375) k/mm3 [facility] 03/12/24 16:35 Sodium 135 L Potassium 4.6 Chloride 98 Carbon Dioxide 32 H BUN 21 H Creatinine 5.90 H Glucose 114 H Calcium 9.2 Cardiac Enzymes 03/12/24 03/12/24 Range/Units 16:35 18:47 Troponin I 0.024 0.022 (0.000-0.034) ng/mL Liver Function 03/12/24 Range/Units 16:35 Total Bilirubin 1.0 (0.2-1.3) mg/dL AST 28 (14-36) U/L ALT 15 (6-35) U/L Alkaline Phosphatase 68 (38-126) U/L Albumin 4.5 (3.5-5.1) g/dL Impressions Chest X-Ray 03/12/24 16:09 IMPRESSION: 1. Stable airspace opacities in the lower lung zones, likely atelectasis/scarring. Chest CTA 03/12/24 19:43 IMPRESSION: 1. Right lower lobe pneumonia. 2. 2.1 cm nodule in right lung lower lobe, which may be infection. Noncontrast low-dose chest CT is recommended in 1-3 months to exclude malignancy. 3. No pulmonary embolus. 4. Mild emphysema. 5. Healing fractures of right 10th and 11th ribs. Assessment and Plan Assessment and plan (1) Hypoxia: Code(s): R09.02 - Hypoxemia Status: Acute (2) Pneumonia: Qualifiers: Laterality: right Lung location: lower lobe of lung Pneumonia type: due to unspecified organism Qualified Code(s): J18.9 - Pneumonia, unspecified organism Code(s): J18.9 - Pneumonia, unspecified organism Status: Acute (3) Nodule of lower lobe of right lung: Code(s): R91.1 - Solitary pulmonary nodule Status: Acute (4) End-stage renal disease on hemodialysis: Code(s): N18.6 - End stage renal disease; Z99.2 - Dependence on renal dialysis Status: Acute (5) Chronic obstructive pulmonary disease: Code(s): J44.9 - Chronic obstructive pulmonary disease, unspecified Status: Acute Plan The patient presented to the emergency department for evaluation of hypoxia as detailed in HPI. Labs, imaging, EKG, and all reports were personally reviewed. SpO2 is currently in the mid upper 90s on 2 L nasal cannula on oxygen will be weaned as tolerated. Hypoxia is likely due to underlying pneumonia. Pulmonary embolism has been ruled out by chest CTA. Continue broad-spectrum antibiotics and scheduled bronchodilators. Attempt sputum for culture. Radiologist recommends follow-up CT scan in 1 to 3 months time to re-evaluate a 2.1 cm right lower lobe nodule which may be related to infection. Dr. Walter consulted for dialysis tomorrow as she received contrast today. Vital signs were reviewed and they are stable. Continue soft and bite size diet with mildly thickened liquids. Her home medications will be reviewed and resumed as appropriate. Findings and treatment plan were discussed with the patient. Questions were solicited and answered to satisfaction. The patient's medical management will be taken over by the hospitalist team in a.m. Quality VTE Prophylaxis VTE prophylaxis: mechanical ordered and pharmacologic ordered The patient has been admitted under observation status. Hospitalist [facility] Advance Care Plan I have confirmed that the patient's Advanced Care Plan is present, code status is documented, or surrogate decision maker is listed in patient medical record.: Yes Medication Reconciliation I have utilized all available resources to obtain, update and review the patients current medications (includes all prescriptions, OTC, herbals, cannabis, and nutritional supplements).: Yes
[2024-03-12 21:48] LABS: MRSA (PCR) NOT DETECTED (NOT DETECTE)
[2024-03-12 23:23] LABS: Influenza A QL RT-PCR Negative (Negative); Influenza B QL RT-PCR Negative (Negative); SARS-CoV-2 RNA PCR Negative (Negative)
[2024-03-12 23:32] LABS: MRSA (PCR) NOT DETECTED (NOT DETECTE)
[2024-03-13] VITALS (32 sets, daily range): BP systolic 79–108; BP diastolic 53–77; PULSE 70–95; RESP 18–20; TEMP 36.2–37.7; O2SAT 95–98
[2024-03-13] MEDS: CEFEPIME 1 GM in DEXTROSE 5% IN WATER 50 ML IVPB (00:30)
[2024-03-13] MEDS: VANCOMYCIN 1,500 MG/NS 500 ML 1,500 MG/500 ML BAG 250 MG IVPB (00:35)
[2024-03-13] MEDS: AZITHROMYCIN 500 MG/NS 250 ML 500 MG/250 ML BAG 250 MG IVPB ×2 (01:09→22:57)
[2024-03-13 06:13] LABS: Hematocrit 35.8 % (37.0-47.0); Hemoglobin 11.4 g/dL (12.0-15.0); Mean Corpuscular HGB Conc 31.8 g/dl (32-36); Mean Corpuscular Hemoglobin 34.2 pg (26-34); Mean Corpuscular Volume 107.5 fl (80-100); Mean Platelet Volume 10.4 fl (7.4-10.4); Platelet Count Result 216 k/mm3 (150-375); Red Blood Count 3.33 M/mm3 (4.2-5.4); Red Cell Distribution Width 15.1 % (11.5-14.5); White Blood Count 7.9 K/mm3 (4.5-10.0)
[2024-03-13 06:29] LABS: Anion Gap 6 mmol/L (4-12); Blood Urea Nitrogen 23 mg/dL (7-17); Calcium 8.6 mg/dL (8.4-10.2); Carbon Dioxide 28 mmol/L (22-30); Chloride 98 mmol/L (98-107); Estimated CRCL calculation 6 ml/min; Estimated Glomerular Filt Rate 5; Glucose 86 mg/dL (65-110); Magnesium 2.2 mg/dL (1.6-2.3); Potassium 3.8 mmol/L (3.4-5.0); Sodium 132 mmol/L (137-145)
[2024-03-13 06:43] LABS: Vancomycin Random 28.4 ug/mL (10-20)
[2024-03-13] MEDS: IPRATROPIUM 0.5 MG/ALBUTEROL SULFATE 2.5 MG AMPUL.NEB 3 ML INHALATION ×3 (07:25→20:44)
[2024-03-13] MEDS: GABAPENTIN 100 MG CAPSULE PO ×3 (08:53→17:26)
[2024-03-13] MEDS: HEPARIN SODIUM 5,000 UNITS/ML VIAL 5000 UNITS SUB-Q ×2 (08:53→22:03)
[2024-03-13] MEDS: ATORVASTATIN 40 MG TABLET PO (08:53)
[2024-03-13] MEDS: PANTOPRAZOLE 40 MG TABLET PO (08:53)
[2024-03-13] MEDS: SEVELAMER CARBONATE 800 MG TABLET PO ×3 (08:53→17:26)
[2024-03-13] MEDS: ASPIRIN 81 MG ENTERIC TABLET PO (08:53)
--- NOTE | 2024-03-13 08:54 | P.CONNP_ITS ---
Assessment and Plan Assessment and plan (1) End-stage renal disease on hemodialysis: Code(s): N18.6 - End stage renal disease; Z99.2 - Dependence on renal dialysis Status: Acute Assessment and Plan: The patient has end-stage renal disease. She gets dialysis on Wednesdays and Fridays. She had a CT angio last night so we will do a dialysis today. Patient's potassium is okay. Will use a 3K bath. Volume status looks okay. Will shoot for 1-2 L off. (2) Nodule of lower lobe of right lung: Code(s): R91.1 - Solitary pulmonary nodule Status: Acute Assessment and Plan: The patient has a nodule on her CT scan. This will need follow-up down the line by primary care. (3) Pneumonia: Qualifiers: Laterality: right Lung location: lower lobe of lung Pneumonia type: d ue to unspecified organism Qualified Code(s): J18.9 - Pneumonia, unspecified organism Code(s): J18.9 - Pneumonia, unspecified organism Status: Acute Assessment and Plan: The patient has pneumonia CT scan it is not clear why the 1st round of antibiotics did not help. Could this be postobstructive question will need to follow up after pneumonia has resolved. The patient was hypoxic. She could also have other causes. CT a was done so she does not have a pulmonary embolus. I talked with MONISHA Murray and were going to get a stress test. She has not had any recent cardiac workup that I know of (4) Anemia in chronic kidney disease (CKD): Code(s): N18.9 - Chronic kidney disease, unspecified; D63.1 - Anemia in chronic kidney disease Status: Acute Assessment and Plan: Hemoglobin is good enough that we do not need to use IESHA so. Will keep an eye on this and initiate them if the hemoglobin drops below 11 (5) Recurrent cerebrovascular accidents (CVAs): Code(s): I63.9 - Cerebral infarction, unspecified Status: Acute Assessment and Plan: Getting physical therapy (6) Essential (primary) hypertension: Code(s): I10 - Essential (primary) hypertension Status: Acute Assessment and Plan: Blood pressure is under good control (7) Secondary hyperparathyroidism, not elsewhere classified: Code(s): E21.1 - Secondary hyperparathyroidism, not elsewhere classified Status: Acute Assessment and Plan: Will check a phosphorus in the morning History of Present Illness Reason for Consult Consult date: 03/13/24 Chief Complaint Chief complaint: PNA/Hypoxia/ESRD on HD History of Present Illness Narrative: Trisha is a very pleasant 73-year-old lady who has multiple medical problems including end-stage renal disease on dialysis 3 times a week, hypertension, COPD, and multi-infarct dementia as well as hyperlipidemia, kidney stones, osteoarthritis, stroke, anemia, and CKDMBD. She started out at [facility] because she had a stroke in the base of a clear dilemma care area. She received supportive care and was felt stable so she was sent to acute rehab in [place]. There she was getting rehab but then during dialysis the patient developed shortness of breath. This continued to worsen so she was sent to the [facility]. She was admitted to the hospital on the . She was felt to have aspiration pneumonia. The patient was treated and improved and was discharged back to rehab. Unfortunately yesterday evening the patient developed hypoxia she was not really short of breath. She came over to the emergency room. Chest x-ray shows bibasilar infiltrates. CT angio was done to rule out pulmonary embolism since she had been in the hospital and this was negative for pulmonary embolism but did show a pneumonia. The patient was admitted and has been placed on broad-spectrum antibiotics. The patient says that she does not feel short of breath right now. No chest pain. No cough. The patient denies any past history of heart disease. She used to smoke but does not remember when she quit. Patient does not drink alcohol Review of Systems 2 Constitutional: Constitutional: Reports no additional constitutional complaints Eyes: Eyes: Reports no additional eye complaints ENT: Reports system reviewed and no additional complaints, except as documented Cardiovascular: Cardiovascular: Reports no additional cardiovascular complaints Respiratory: Respiratory: Reports no additional respiratory complaints Gastrointestinal: Gastrointestinal: Reports no additional gastrointestinal complaints Genitourinary: Genitourinary: Reports no additional female genitourinary complaints Musculoskeletal: Musculoskeletal: Reports no additional musculoskeletal complaints Integumentary/Breasts: Skin/Breast: Reports system reviewed and no additional complaints, except as docu Neurologic: Reports system reviewed and no additional complaints, except as documented Psychiatric: Psychiatric: Reports no additional psychiatric complaints Endocrine: Endocrine: Reports no additional endocrine complaints [facility] Past Medical History Medical History Chronic obstructive pulmonary disease Cerebrovascular accident residual short-term memory loss and right-sided weakness QT prolongation Anemia in chronic kidney disease (CKD) Gait abnormality Oropharyngeal dysphagia Hyperlipidemia Hypertension Depression Nephrolithiasis Osteoarthritis End stage renal disease Surgical History Surgical History History of right shoulder replacement History of left knee replacement Status post creation of arteriovenous fistula Bilateral upper arms with the right being the oldest, there is wound site on the left but the facial itself has no palpable thrill and no bruit on auscultation Family History Family History Other Unknown family medical history Social History Social History Social History: Surrogate medical decision maker: Demond Hightower, son. Code status: Full code. Smoking status: Former smoker Tobacco type: cigarettes Smoking end date: 02/28/14 Alcohol intake: never Substance use: never Substance use type: marijuana Other substance usage details: GUMMIES Do You Feel Safe in your Home?: Yes Lack of Transportation: No Lack of Food: Never True Current Housing: I Have Housing Concerned About Future Housing: No Difficulty Paying Gas/Electric Bills: No Difficulty Paying for Meds: No Currently Unemployed: No Education: High School Diploma/GED Difficulty w/ Childcare or Family Care: No Living arrangements: with family Spiritual care concerns: No Meds Home Medications and Allergies Home Medications ?Medication ?Instructions ?Recorded ?Confirmed ?Type aspirin 81 mg tablet,delayed 81 mg PO DAILY 07/24/22 03/12/24 History release (Adult Low Dose Aspirin) cholecalciferol (vitamin D3) 125 125 mcg PO DAILY 01/10/23 03/12/24 History mcg (5,000 unit) tablet gabapentin 100 mg capsule 100 mg PO TID 01/10/23 03/12/24 History sevelamer HCl 800 mg tablet 800 mg PO TID 02/29/24 03/12/24 History hydralazine 25 mg tablet 25 mg PO Q6H PRN SBP greater than 03/08/24 03/12/24 History 160 ipratropium 0.5 mg-albuterol 3 mg 3 ml inhalation BID PRN SOB 03/08/24 03/12/24 History (2.5 mg base)/3 mL nebulization soln pantoprazole 40 mg tablet,delayed 40 mg PO QAM 03/08/24 03/12/24 History release acetaminophen 325 mg tablet 650 mg (2 x 325 mg) PO Q6H PRN 03/11/24 03/12/24 Rx Mild Pain (1-3) Or Fever #30 tabs amoxicillin 250 mg-potassium 1 tablet PO Q12H #7 tabs 03/11/24 03/12/24 Rx clavulanate 125 mg tablet atorvastatin 40 mg tablet 40 mg PO DAILY #30 tabs 03/11/24 03/12/24 Rx Allergies Allergy/AdvReac Type Severity Reaction Status Date / Time No Known Allergies Allergy Verified 01/12/23 07:34 Vital Signs Vital Signs - 24 hr 03/12/24 15:27 03/12/24 15:45 03/12/24 16:32 Temperature 98.2 F Pulse Rate 79 90 Respiratory Rate 20 20 Blood Pressure 129/54 L Pulse Oximetry 89 L 89 L 95 Oxygen Delivery Room Air Room Air Oxygen Flow Rate 03/12/24 16:37 03/12/24 17:02 03/12/24 18:11 Temperature Pulse Rate 84 Respiratory Rate 20 20 Blood Pressure 119/86 Pulse Oximetry 95 95 95 Oxygen Delivery Nasal Cannula Oxygen Flow Rate 2 2 03/12/24 20:21 03/12/24 21:49 03/12/24 21:55 Temperature 97.6 F Pulse Rate 87 88 Respiratory Rate 16 18 Blood Pressure 116/85 136/74 Pulse Oximetry 96 98 95 Oxygen Delivery Nasal Cannula Oxygen Flow Rate 2 03/13/24 06:12 Temperature 97.8 F Pulse Rate 75 Respiratory Rate 18 Blood Pressure 108/71 Pulse Oximetry 98 Oxygen Delivery Oxygen Flow Rate Exam 2 Narrative: Exam Narrative: Well developed well-nourished female in no acute distress Skin is warm and dry without rash Head normocephalic atraumatic Eyes normal sclerae and conjunctivae Mouth normal lips teeth and gums Neck no nodes no thyromegaly no carotid bruits Axillae no nodes Back no CVA tenderness Lungs symmetric and clear to auscultation and percussion. No wheezes. Heart regular rate and rhythm without rub or gallop Abdomen bowel sounds positive soft nontender, no HSM, masses, or bruits. Extremities no cyanosis, clubbing, but trace bilateral edema Pulses 2+ equal in radial arteries Psychological not anxious or depressed Neuro alert and oriented x3, but a little sleepy. Motor 5/5 cranial nerves 2-12 intact reflexes 2+ and equal in the biceps and patellar tendons cerebellar normal rapid alternating movements Results Lab Results 03/13/24 05:55 03/13/24 05:55 Lab results: Most recent lab results Calcium 8.6 mg/dL (8.4-10.2) 03/13/24 05:55 Magnesium 2.2 mg/dL (1.6-2.3) 03/13/24 05:55
[2024-03-13] MEDS: HEPARIN SODIUM 1,000 UNITS/ML VIAL 1000 UNITS IV PUSH (09:47)
[2024-03-13] MEDS: HEPARIN SODIUM 1,000 UNITS/ML VIAL 500 UNITS IV PUSH ×2 (09:52→10:50)
--- NOTE | 2024-03-13 10:34 | P.PNIM_ITS ---
Progress Note: A&P Assessment and Plan (1) Acute hypoxic respiratory failure: Code(s): J96.01 - Acute respiratory failure with hypoxia Status: Acute Assessment and Plan: On supplemental oxygen by nasal cannula Continuous pulse ox Try and keep oxygen saturation at 94% Wean off of oxygen as needed 03/13/24 * Continue to wean oxygen as able to for sats >90 * Lexiscan Stress/ECHO ordered at request of Dr. Walter from Nephrology * Trend VS (2) Pneumonia: Qualifiers: Laterality: right Lung location: lower lobe of lung Pneumonia type: due to unspecified organism Qualified Code(s): J18.9 - Pneumonia, unspecified organism Code(s): J18.9 - Pneumonia, unspecified organism Status: Acute Assessment and Plan: Patient started on vancomycin cefepime and Zithromax Cultures in progress 03/13/24 * Legionella urine ordered, but currently uncollected. * Mycoplasma specimen from sputum ordered but currently uncollected * Nursing order placed today to obtain these two specimens and send to lab. * Continue IV abx of Cefepime and Azithromycin * Blood cultures x2 are pending. 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 Time Spent With Patient Time with patient: 25 - 35 minutes Subjective Date/time seen: 03/13/24 10:34 Interval history: Pt was examined today at the bedside in no acute distress, but appears very tired. Dr. Walter was also present and suggests pt have a stress/ECHO due to her persistent fatigue and dyspnea requiring oxygen. She will be going for dialysis today. No new complaints and no new symptoms to report. She remains on supplemental oxygen. Review of Systems Review of Systems: All systems reviewed & are unremarkable except as noted in HPI and below Exam Const: General: comfortable and no acute distress HENMT: Mouth: Yes moist mucous membranes Neck: Neck: supple and no JVD Resp: Effort & Inspection: normal respiratory effort Auscultation: clear to auscultation bilaterally Cardio: Rate: regular rate Rhythm: abnormal rhythm regularly irregular Heart sounds: no gallops and no murmurs GI: Inspection: non-distended GI Palp: Yes Soft to palpation, No Tenderness to palpation present (GI) and No Guarding due to palpation present (GI) Auscultation: normal bowel sounds Skin: General skin exam: normal color Neuro: Motor exam (neuro): strength not 5/5 throughout and Abnormal motor strength present (Weakness noted in RUE and RLE. Pt states from previous CVA) Extrem: General: normal to inspection, no edema and no pedal edema Psych: Mental Status: mental status grossly normal Objective Data Vital Signs Vital Signs: Vital Signs - 24 hr 03/12/24 15:27 03/12/24 15:45 03/12/24 16:32 Temperature 98.2 F Pulse Rate 79 90 Respiratory Rate 20 20 Blood Pressure 129/54 L Pulse Oximetry 89 L 89 L 95 Oxygen Delivery Room Air Room Air Oxygen Flow Rate 03/12/24 16:37 03/12/24 17:02 03/12/24 18:11 Temperature Pulse Rate 84 Respiratory Rate 20 20 Blood Pressure 119/86 Pulse Oximetry 95 95 95 Oxygen Delivery Nasal Cannula Oxygen Flow Rate 2 2 03/12/24 20:21 03/12/24 21:49 03/12/24 21:55 Temperature 97.6 F Pulse Rate 87 88 Respiratory Rate 16 18 Blood Pressure 116/85 136/74 Pulse Oximetry 96 98 95 Oxygen Delivery Nasal Cannula Oxygen Flow Rate 2 03/13/24 06:12 03/13/24 07:25 03/13/24 07:25 Temperature 97.8 F Pulse Rate 75 70 70 Respiratory Rate 18 18 18 Blood Pressure 108/71 Pulse Oximetry 98 97 Oxygen Delivery Nasal Cannula Oxygen Flow Rate 2 03/13/24 07:35 Temperature Pulse Rate 72 Respiratory Rate 18 Blood Pressure Pulse Oximetry Oxygen Delivery Oxygen Flow Rate Intake/Output Intake/Output: Intake & Output 03/10/24 03/11/24 03/12/24 03/13/24 23:59 23:59 23:59 23:59 Intake Total 150 Balance 150 Meds/Results Medications: Active Medications Generic Name Dose Route Start Last Admin Trade Name Freq PRN Reason Stop Dose Admin Acetaminophen 650 mg 03/13/24 01:05 Acetaminophen 325 Mg Tablet PO Q6H PRN Mild Pain (1-3) Or Fever Albuterol/Ipratropium 3 ml 03/13/24 02:00 03/13/24 07:25 Ipratropium 0.5 Mg/Albuterol Sulfate 2.5 Mg Ampul.Neb 3 Ml INHALATION 3 ml Q6HRT VARGHESE Administration Albuterol/Ipratropium 3 ml 03/13/24 01:05 Ipratropium 0.5 Mg/Albuterol Sulfate 2.5 Mg Ampul.Neb 3 Ml INHALATION Q12HRT PRN SOB Aspirin 81 mg 03/13/24 09:00 03/13/24 08:53 Aspirin 81 Mg Enteric Tablet PO 81 mg DAILY VARGHESE Administration Atorvastatin Calcium 40 mg 03/13/24 09:00 03/13/24 08:53 Atorvastatin 40 Mg Tablet PO 40 mg DAILY VARGHESE Administration Dextrose 12.5 gm 03/12/24 20:13 Dextrose 50% 25 Gm/50 Ml Syringe IV PUSH PRN PRN Hypoglycemia Protocol Gabapentin 100 mg 03/13/24 09:00 03/13/24 08:53 Gabapentin 100 Mg Capsule PO 100 mg TID VARGHESE Administration Glucagon 1 mg 03/12/24 20:13 Glucagon For Inj 1 Mg Vial IM PRN PRN Hypoglycemia Protocol Glucose 15 gm 03/12/24 20:13 Glucose Oral Gel 15 Gm Of Glucse In 37.5 Gm Tube PO PRN PRN Hypoglycemia Protocol Heparin Sodium (Porcine) 5,000 units 03/13/24 09:00 03/13/24 08:53 Heparin Sodium 5,000 Units/Ml Vial SUB-Q 5,000 units Q12HR VARGHESE Administration Heparin Sodium (Porcine) 6,000 units 03/13/24 13:00 Heparin Sodium 1,000 Units/Ml Vial IV PUSH 03/13/24 13:01 ONCE ONE Hydralazine HCl 25 mg 03/13/24 01:05 Hydralazine Hcl 25 Mg Tablet PO Q6H PRN SBP greater than 160 Azithromycin 500 mg in 250 mls @ 250 mls/hr 03/13/24 23:00 Zithromax IVPB Q24H VARGHESE Cefepime HCl 1 gm in 50 mls @ 100 mls/hr 03/13/24 22:00 Maxipime 1 Gm/Ns 50 Ml IVPB Q24H VARGHESE Dextrose 1,000 mls @ 100 mls/hr 03/12/24 20:13 Dextrose 5% 1,000 Ml IVPB PRN PRN Hypoglycemia Protocol Pantoprazole Sodium 40 mg 03/13/24 09:00 03/13/24 08:53 Pantoprazole 40 Mg Tablet PO 40 mg QAM VARGHESE Administration Perflutren Lipid Microsphere 0 ml 03/13/24 09:13 Perflutren Lipid Microspheres 1.5 Ml Vial Diluted To 10 Ml Total Volume IV PUSH 03/16/24 09:14 ONCE PRN adequate visualization Protocol Sevelamer Carbonate 800 mg 03/13/24 08:00 03/13/24 08:53 Sevelamer Carbonate 800 Mg Tablet PO 800 mg TIDWM VARGHESE Administration Vancomycin HCl 1 each 03/12/24 20:20 Vancomycin For Hemodialysis IVPB PRN PRN Vancomycin Protocol Radiology Results: ITS Impressions Chest X-Ray 03/12/24 16:09 IMPRESSION: 1. Stable airspace opacities in the lower lung zones, likely atelectasis/scarring. Chest CTA 03/12/24 19:43 IMPRESSION: 1. Right lower lobe pneumonia. 2. 2.1 cm nodule in right lung lower lobe, which may be infection. Noncontrast low-dose chest CT is recommended in 1-3 months to exclude malignancy. 3. No pulmonary embolus. 4. Mild emphysema. 5. Healing fractures of right 10th and 11th ribs. Labs Labs: Laboratory Results - last 24 hr 03/12/24 03/12/24 03/12/24 16:35 16:40 16:40 WBC 9.3 RBC 4.02 L Hgb 14.0 Hct 43.1 MCV 107.2 H MCH 34.8 H MCHC 32.5 RDW 15.4 H Plt Count 230 MPV 10.7 H Immature Gran % (Auto) 0.4 Neut % (Auto) 71.6 Lymph % (Auto) 17.2 L [place] % (Auto) 8.5 Eos % (Auto) 1.7 Baso % (Auto) 0.6 Lymph # (Auto) 1.59 [place] # (Auto) 0.8 H Eos # (Auto) 0.2 Baso # (Auto) 0.1 Abs Immat Gran (auto) 0.04 H Absolute Neuts (auto) 6.6 Absolute Nucleated RBC 0.000 Nucleated RBC % 0.0 Platelet Estimate Adequate Anisocytosis 2+ Macrocytosis 1+ Schistocytes None seen PT 14.0 INR 1.0 APTT 24.4 D-Dimer 2.62 H Cancelled Sodium 135 L Potassium 4.6 Chloride 98 Carbon Dioxide 32 H Anion Gap 5 BUN 21 H Creatinine 5.90 H Estim Creat Clear Calc 8 Estimated GFR 7 L Glucose 114 H Calcium 9.2 Magnesium Total Bilirubin 1.0 AST 28 ALT 15 Alkaline Phosphatase 68 Troponin I 0.024 NT-Pro-B Natriuret Pep 1130 H Total Protein 8.0 Albumin 4.5 Lipase 263 Nasal MRSA (PCR) Random Vancomycin Influenza A (RT-PCR) Influenza B (RT-PCR) SARS-CoV-2 RNA (RT-PCR) 03/12/24 03/12/24 03/12/24 18:47 20:34 22:14 WBC RBC Hgb Hct MCV MCH MCHC RDW Plt Count MPV Immature Gran % (Auto) Neut % (Auto) Lymph % (Auto) [place] % (Auto) Eos % (Auto) Baso % (Auto) Lymph # (Auto) [place] # (Auto) Eos # (Auto) Baso # (Auto) Abs Immat Gran (auto) Absolute Neuts (auto) Absolute Nucleated RBC Nucleated RBC % Platelet Estimate Anisocytosis Macrocytosis Schistocytes PT INR APTT D-Dimer Sodium Potassium Chloride Carbon Dioxide Anion Gap BUN Creatinine Estim Creat Clear Calc Estimated GFR Glucose Calcium Magnesium Total Bilirubin AST ALT Alkaline Phosphatase Troponin I 0.022 NT-Pro-B Natriuret Pep Total Protein Albumin Lipase Nasal MRSA (PCR) Not detected Not detected Random Vancomycin Influenza A (RT-PCR) Negative Influenza B (RT-PCR) Negative SARS-CoV-2 RNA (RT-PCR) Negative 03/13/24 05:55 WBC 7.9 RBC 3.33 L Hgb 11.4 L Hct 35.8 L MCV 107.5 H MCH 34.2 H MCHC 31.8 L RDW 15.1 H Plt Count 216 MPV 10.4 Immature Gran % (Auto) Neut % (Auto) Lymph % (Auto) [place] % (Auto) Eos % (Auto) Baso % (Auto) Lymph # (Auto) [place] # (Auto) Eos # (Auto) Baso # (Auto) Abs Immat Gran (auto) Absolute Neuts (auto) Absolute Nucleated RBC Nucleated RBC % Platelet Estimate Anisocytosis Macrocytosis Schistocytes PT INR APTT D-Dimer Sodium 132 L Potassium 3.8 Chloride 98 Carbon Dioxide 28 Anion Gap 6 BUN 23 H Creatinine 7.30 H Estim Creat Clear Calc 6 Estimated GFR 5 L Glucose 86 Calcium 8.6 Magnesium 2.2 Total Bilirubin AST ALT Alkaline Phosphatase Troponin I NT-Pro-B Natriuret Pep Total Protein Albumin Lipase Nasal MRSA (PCR) Random Vancomycin 28.4 H Influenza A (RT-PCR) Influenza B (RT-PCR) SARS-CoV-2 RNA (RT-PCR) Quality VTE Prophylaxis VTE prophylaxis: pharmacologic ordered
--- NOTE | 2024-03-13 11:06 | PCCARD ---
[facility] with [facility] and was given permission to Modify exam from Doburamine to a Lexiscan w/NM. Patient was not NPO, therefore exam robb be done tomorrow 03/14/24
[2024-03-13] MEDS: ALBUMIN HUMAN 25% 12.5 GM/50ML 50 ML IVPB (11:28)
[2024-03-13] MEDS: HEPARIN SODIUM 1,000 UNITS/ML VIAL 6000 UNITS IV PUSH (13:53)
[2024-03-13] MEDS: CEFEPIME 1 GM/NS 50 ML 1 GM/50 ML BAG IVPB (21:58)
[2024-03-14] VITALS (16 sets, daily range): BP systolic 103–133; BP diastolic 58–71; PULSE 63–94; RESP 14–20; TEMP 36.2–36.8; O2SAT 93–98
--- NOTE | 2024-03-14 | EST_ITS ---
Patient Info Name: Trisha Waite Age: 73 years : 1950 Gender: Female Ht: 67 in Wt: 162 lbs BSA: 1.87 m2 HR: 68 bpm BP: 116 / 62 mmHg Exam Date: 03/14/2024 10:24 AM Exam Location: Echo Lab Patient Status: Inpatient Admit Date: 03/13/2024 Staff Ordering Physician: Terrie Esparza Attending Provider: Terrie Esparza Exercise Technologist: Princess Laird [facility] Exercise Physician: Exam Type: CA stress nicolás w NM Study Info A regadenoson stress test was performed. Summary 1. No abnormal ST-T wave changes with lexiscan. 2. Patient has symptoms of chest discomfort with Lexiscan that resolved in recovery. Protocol: Lexiscan Stress ECG Details Stage: REST Duration (min): 1 min : 46 sec HR (bpm): 66 SBP (mmHg): 116 DBP (mmHg): 62 Stage: REST Duration (min): 7 min : 2 sec HR (bpm): 70 SBP (mmHg): 116 DBP (mmHg): 62 Stage: STAGE 1 Duration (min): 0 min : 59 sec HR (bpm): 87 SBP (mmHg): 121 DBP (mmHg): 63 Stage: RECOVERY Duration (min): 1 min : 0 sec HR (bpm): 90 SBP (mmHg): 121 DBP (mmHg): 63 Stage: RECOVERY Duration (min): 2 min : 0 sec HR (bpm): 89 SBP (mmHg): 121 DBP (mmHg): 63 Stage: RECOVERY Duration (min): 3 min : 0 sec HR (bpm): 88 SBP (mmHg): 127 DBP (mmHg): 63 Stage: RECOVERY Duration (min): 3 min : 4 sec HR (bpm): 90 SBP (mmHg): 127 DBP (mmHg): 63 Rest HR: 70 bpm Peak HR: 93 bpm Rest Sys BP: 116 mmHg Peak Sys BP: 127 mmHg Max Pred HR: 148 bpm % Max Pred HR: 63 % Target HR: 126 bpm Max RPP: 11,811 bpm*mmHg Total Time: 1 min : 0 sec Rest Shipley BP: 62 mmHg Peak [place] BP: 63 mmHg Total Dose: 0.4 mg Resting ECG Sinus rhythm with a ventricular rate of 60 beats per minute. No significant ST-T wave abnormalities. Stress ECG No abnormal ST T wave changes with Lexiscan. Arrhythmias None. Report Signatures
[2024-03-14] MEDS: IPRATROPIUM 0.5 MG/ALBUTEROL SULFATE 2.5 MG AMPUL.NEB 3 ML INHALATION ×4 (03:02→20:11)
[2024-03-14 06:04] LABS: Hematocrit 35.4 % (37.0-47.0); Hemoglobin 11.4 g/dL (12.0-15.0); Mean Corpuscular HGB Conc 32.2 g/dl (32-36); Mean Corpuscular Volume 108.6 fl (80-100); Platelet Count Result 201 k/mm3 (150-375); Red Blood Count 3.26 M/mm3 (4.2-5.4); Red Cell Distribution Width 15.1 % (11.5-14.5); White Blood Count 7.2 K/mm3 (4.5-10.0)
[2024-03-14 06:21] LABS: Alanine Aminotransferase 12 U/L (6-35); Alkaline Phosphatase 62 U/L (38-126); Anion Gap 5 mmol/L (4-12); Aspartate Amino Transferase 18 U/L (14-36); Bilirubin,Total 0.7 mg/dL (0.2-1.3); Blood Urea Nitrogen 10 mg/dL (7-17); Calcium 8.9 mg/dL (8.4-10.2); Carbon Dioxide 30 mmol/L (22-30); Chloride 101 mmol/L (98-107); Estimated CRCL calculation 11 ml/min; Estimated Glomerular Filt Rate 11; Glucose 89 mg/dL (65-110); Magnesium 2.1 mg/dL (1.6-2.3); Phosphorus 3.8 mg/dL (2.5-4.5); Potassium 3.2 mmol/L (3.4-5.0); Sodium 136 mmol/L (137-145)
[2024-03-14 06:37] LABS: Vancomycin Random 16.6 ug/mL (10-20)
[2024-03-14] MEDS: ASPIRIN 81 MG ENTERIC TABLET PO (08:43)
[2024-03-14] MEDS: ATORVASTATIN 40 MG TABLET PO (08:43)
[2024-03-14] MEDS: HEPARIN SODIUM 5,000 UNITS/ML VIAL 5000 UNITS SUB-Q (08:43)
[2024-03-14] MEDS: GABAPENTIN 100 MG CAPSULE PO ×3 (08:43→18:21)
[2024-03-14] MEDS: PANTOPRAZOLE 40 MG TABLET PO (08:43)
[2024-03-14] MEDS: SEVELAMER CARBONATE 800 MG TABLET PO ×3 (08:43→18:21)
--- NOTE | 2024-03-14 09:14 | P.PNNP_ITS ---
Progress Note: A&P Assessment and Plan (1) End-stage renal disease on hemodialysis: Code(s): N18.6 - End stage renal disease; Z99.2 - Dependence on renal dialysis Status: Chronic Assessment and Plan: The patient has end-stage renal disease. She gets dialysis on Wednesdays and Fridays. She is getting a stress test today so will do her dialysis tomorrow Volume status looks okay. (2) Nodule of lower lobe of right lung: Code(s): R91.1 - Solitary pulmonary nodule Status: Acute Assessment and Plan: The patient has a nodule on her CT scan. This will need follow-up down the line by primary care. (3) Pneumonia: Qualifiers: Laterality: right Lung location: lower lobe of lung Pneumonia type: d ue to unspecified organism Qualified Code(s): J18.9 - Pneumonia, unspecified organism Code(s): J18.9 - Pneumonia, unspecified organism Status: Acute Assessment and Plan: The patient has pneumonia CT scan it is not clear why the 1st round of antibiotics did not help. Could this be postobstructive question will need to follow up after pneumonia has resolved. The patient is on antibiotics now and she feels better Stress test today to rule out other causes of hypoxia (4) Anemia in chronic kidney disease (CKD): Code(s): N18.9 - Chronic kidney disease, unspecified; D63.1 - Anemia in chronic kidney disease Status: Acute Assessment and Plan: Hemoglobin is good enough that we do not need to use IESHA (5) Recurrent cerebrovascular accidents (CVAs): Code(s): I63.9 - Cerebral infarction, unspecified Status: Acute Assessment and Plan: Getting physical therapy (6) Essential (primary) hypertension: Code(s): I10 - Essential (primary) hypertension Status: Acute Assessment and Plan: Blood pressure is under good control (7) Secondary hyperparathyroidism, not elsewhere classified: Code(s): E21.1 - Secondary hyperparathyroidism, not elsewhere classified Status: Acute Assessment and Plan: Phosphorus is normal Subjective Date/time seen: 03/14/24 09:14 Interval history: Patient is alert. Breathing okay. Coughing a little bit. It is somewhat wet but he had she does not cough much sputum up. Exam Narrative: WDWN in NAD skin no rash head ncat lungs clear with occasional rhonchi and mildly increased expiratory phase cor reg no rub abd BS+ nontender and soft ext no edema. Objective Data Vital Signs Vital Signs: Vital Signs - 24 hr 03/13/24 09:15 03/13/24 09:33 03/13/24 09:52 Temperature 97.7 F Pulse Rate 95 85 Respiratory Rate 20 Blood Pressure 79/54 L 91/64 L Pulse Oximetry 95 Oxygen Delivery Oxygen Flow Rate 3 03/13/24 09:52 03/13/24 10:00 03/13/24 10:15 Temperature Pulse Rate 83 90 95 Respiratory Rate Blood Pressure 82/69 L 93/62 L 79/54 L Pulse Oximetry Oxygen Delivery Oxygen Flow Rate 03/13/24 10:30 03/13/24 10:45 03/13/24 11:00 Temperature Pulse Rate 87 78 80 Respiratory Rate Blood Pressure 88/61 L 84/66 L 88/66 L Pulse Oximetry Oxygen Delivery Oxygen Flow Rate 03/13/24 11:15 03/13/24 11:30 03/13/24 11:45 Temperature Pulse Rate 77 78 76 Respiratory Rate Blood Pressure 93/66 L 106/77 108/72 Pulse Oximetry Oxygen Delivery Oxygen Flow Rate 03/13/24 12:00 03/13/24 12:15 03/13/24 12:30 Temperature Pulse Rate 76 89 90 Respiratory Rate Blood Pressure 92/71 L 102/67 92/66 L Pulse Oximetry Oxygen Delivery Oxygen Flow Rate 03/13/24 12:45 03/13/24 13:00 03/13/24 13:15 Temperature Pulse Rate 90 92 90 Respiratory Rate Blood Pressure 90/70 L 96/70 L 93/71 L Pulse Oximetry Oxygen Delivery Oxygen Flow Rate 03/13/24 13:35 03/13/24 13:40 03/13/24 14:41 Temperature 98.6 F Pulse Rate 90 88 79 Respiratory Rate 20 Blood Pressure 107/73 98/71 L Pulse Oximetry 98 Oxygen Delivery Oxygen Flow Rate 03/13/24 14:53 03/13/24 16:00 03/13/24 20:00 Temperature 97.2 F L Pulse Rate 84 86 Respiratory Rate 18 Blood Pressure 106/53 L Pulse Oximetry 97 97 Oxygen Delivery Nasal Cannula Oxygen Flow Rate 2 03/13/24 20:00 03/13/24 20:44 03/13/24 20:44 Temperature Pulse Rate 81 75 Respiratory Rate 18 Blood Pressure Pulse Oximetry 96 Oxygen Delivery Nasal Cannula Oxygen Flow Rate 2 03/13/24 20:50 03/13/24 21:28 03/14/24 00:00 Temperature 97.2 F L Pulse Rate 71 77 94 Respiratory Rate 18 20 Blood Pressure 102/72 Pulse Oximetry 97 Oxygen Delivery Oxygen Flow Rate 03/14/24 03:03 03/14/24 03:10 03/14/24 03:39 Temperature Pulse Rate 71 73 Respiratory Rate 14 14 Blood Pressure Pulse Oximetry 98 Oxygen Delivery Nasal Cannula Oxygen Flow Rate 1 03/14/24 05:30 03/14/24 08:28 03/14/24 08:28 Temperature 97.8 F Pulse Rate 64 70 Respiratory Rate 20 16 Blood Pressure 133/58 L Pulse Oximetry 93 94 Oxygen Delivery Nasal Cannula Oxygen Flow Rate 2 03/14/24 08:36 Temperature Pulse Rate 75 Respiratory Rate 16 Blood Pressure Pulse Oximetry Oxygen Delivery Oxygen Flow Rate Intake/Output Intake/Output: Intake & Output 03/11/24 03/12/24 03/13/24 03/14/24 23:59 23:59 23:59 23:59 Intake Total 710 50 Output Total 0 Balance 710 50 Meds/Results Medications: Active Medications Generic Name Dose Route Start Last Admin Trade Name Freq PRN Reason Stop Dose Admin Acetaminophen 650 mg 03/13/24 01:05 Acetaminophen 325 Mg Tablet PO Q6H PRN Mild Pain (1-3) Or Fever Albuterol/Ipratropium 3 ml 03/13/24 02:00 03/14/24 08:27 Ipratropium 0.5 Mg/Albuterol Sulfate 2.5 Mg Ampul.Neb 3 Ml INHALATION 3 ml Q6HRT VARGHESE Administration Albuterol/Ipratropium 3 ml 03/13/24 01:05 Ipratropium 0.5 Mg/Albuterol Sulfate 2.5 Mg Ampul.Neb 3 Ml INHALATION Q12HRT PRN SOB Aspirin 81 mg 03/13/24 09:00 03/14/24 08:43 Aspirin 81 Mg Enteric Tablet PO 81 mg DAILY VARGHESE Administration Atorvastatin Calcium 40 mg 03/13/24 09:00 03/14/24 08:43 Atorvastatin 40 Mg Tablet PO 40 mg DAILY VARGHESE Administration Dextrose 12.5 gm 03/12/24 20:13 Dextrose 50% 25 Gm/50 Ml Syringe IV PUSH PRN PRN Hypoglycemia Protocol Gabapentin 100 mg 03/13/24 09:00 03/14/24 08:43 Gabapentin 100 Mg Capsule PO 100 mg TID VARGHESE Administration Glucagon 1 mg 03/12/24 20:13 Glucagon For Inj 1 Mg Vial IM PRN PRN Hypoglycemia Protocol Glucose 15 gm 03/12/24 20:13 Glucose Oral Gel 15 Gm Of Glucse In 37.5 Gm Tube PO PRN PRN Hypoglycemia Protocol Heparin Sodium (Porcine) 5,000 units 03/13/24 09:00 03/14/24 08:43 Heparin Sodium 5,000 Units/Ml Vial SUB-Q 5,000 units Q12HR VARGHESE Administration Hydralazine HCl 25 mg 03/13/24 01:05 Hydralazine Hcl 25 Mg Tablet PO Q6H PRN SBP greater than 160 Azithromycin 500 mg in 250 mls @ 250 mls/hr 03/13/24 23:00 03/13/24 22:57 Zithromax IVPB 250 mls/hr Q24H VARGHESE Administration Cefepime HCl 1 gm in 50 mls @ 100 mls/hr 03/13/24 22:00 03/13/24 21:58 Maxipime 1 Gm/Ns 50 Ml IVPB 100 mls/hr Q24H VARGHESE Administration Dextrose 1,000 mls @ 100 mls/hr 03/12/24 20:13 Dextrose 5% 1,000 Ml IVPB PRN PRN Hypoglycemia Protocol Vancomycin HCl 500 mg in 100 mls @ 100 mls/hr 03/14/24 18:00 Vancomycin 500 Mg/Ns 100 Ml IVPB 03/14/24 18:59 ONCE ONE Pantoprazole Sodium 40 mg 03/13/24 09:00 03/14/24 08:43 Pantoprazole 40 Mg Tablet PO 40 mg QAM VARGHESE Administration Perflutren Lipid Microsphere 0 ml 03/13/24 09:13 Perflutren Lipid Microspheres 1.5 Ml Vial Diluted To 10 Ml Total Volume IV PUSH 03/16/24 09:14 ONCE PRN adequate visualization Protocol Sevelamer Carbonate 800 mg 03/13/24 08:00 03/14/24 08:43 Sevelamer Carbonate 800 Mg Tablet PO 800 mg TIDWM VARGHESE Administration Vancomycin HCl 1 each 03/12/24 20:20 Vancomycin For Hemodialysis IVPB PRN PRN Vancomycin Protocol Radiology Results: ITS Impressions Chest X-Ray 03/12/24 16:09 IMPRESSION: 1. Stable airspace opacities in the lower lung zones, likely atelecta sis/scarring. Chest CTA 03/12/24 19:43 IMPRESSION: 1. Right lower lobe pneumonia. 2. 2.1 cm nodule in right lung lower lobe, which may be infection. Noncontrast low-dose chest CT is recommended in 1-3 months to exclude malignancy. 3. No pulmonary embolus. 4. Mild emphysema. 5. Healing fractures of right 10th and 11th ribs. Labs Labs: Laboratory Results - last 24 hr 03/14/24 03/14/24 05:41 05:42 WBC 7.2 RBC 3.26 L Hgb 11.4 L Hct 35.4 L MCV 108.6 H MCH 35.0 H MCHC 32.2 RDW 15.1 H Plt Count 201 MPV 10.0 Sodium 136 L Potassium 3.2 L Chloride 101 Carbon Dioxide 30 Anion Gap 5 BUN 10 D Creatinine 4.00 H Estim Creat Clear Calc 11 Estimated GFR 11 L Glucose 89 Calcium 8.9 Phosphorus 3.8 Magnesium 2.1 Total Bilirubin 0.7 AST 18 ALT 12 Alkaline Phosphatase 62 Total Protein 6.0 L Albumin 4.0 Random Vancomycin 16.6
--- NOTE | 2024-03-14 13:34 | P.DS_ITS ---
DS: Admitting Diagnosis Discharge Date 03/14/2024 Admitting Diagnosis Hypoxia DS: Discharge Diagnosis Discharge Diagnosis (1) Acute hypoxic respiratory failure: Code(s): J96.01 - Acute respiratory failure with hypoxia Status: Acute (2) Pneumonia: Qualifiers: Laterality: right Lung location: lower lobe of lung Pneumonia type: due to unspecified organism Qualified Code(s): J18.9 - Pneumonia, unspecified organism Code(s): J18.9 - Pneumonia, unspecified organism Status: Acute (3) End-stage renal disease on hemodialysis: Code(s): N18.6 - End stage renal disease; Z99.2 - Dependence on renal dialysis Status: Chronic (4) Hemiparesis affecting right side as late effect of stroke: Code(s): I69.351 - Hemiplegia and hemiparesis following cerebral infarction affecting right dominant side Status: Chronic DS: Summary Hospital Course Hospital Course: This is a 73-year-old female with history of stroke, atrial fibrillation, chronic obstructive pulmonary disease, end-stage renal disease on hemodialysis, and oropharyngeal dysphagia with history of aspiration who presented to the emergency department via EMS from [facility] for evaluation of low oxygen saturations. The patient suffers from short-term memory loss from a prior stro ke. She was recently admitted to the hospital with aspiration pneumonia and in fact was discharged back to rehab a day prior on Augmentin and she had no oxygen requirement at that time. Today she was found to have an SpO2 of 89% on room air and she was brought back to the emergency department. The patient reports a dry cough but she has no other complaints and she specifically denies headache, fe aron, chills, sweats, sinus congestion, sore throat, chest pain, pleuritic pain, palpitations, anorexia, nausea, vomiting, and diarrhea. She denies concerns for aspiration since discharge. In the ED: Vital signs were stable on arrival. Labs are significant for WBC count of 9.3, D-dimer 2.62, sodium 132, carbon dioxide 32, BUN 21, creatinine 5.90, troponin 0.024, proBNP 1130. Chest CTA was negative for pulmonary embolism but did show a right lower lobe pneumonia and a 2.1 cm nodule in the right lower lobe which may be infection. She was given a dose of azithromycin, cefepime, and vancomycin and she is being admitted in this setting. During the hospital stay her cultures remain negative. She required 1-2 L oxygen via nasal cannula. Lexiscan was performed which was unremarkable. Wean as tolerated. Will taper antibiotics to oral. She was recently discharged on Augmentin. Which will be continued. Will also add doxycycline for atypical coverage. Oxygen supplementation to continue and to wean as tolerated. Time Spent with Patient Time attestation: Total time spent providing and/or coordinating discharge services: 40 minutes Exam Narrative: General: Chronically ill-appearing female in the semi-[place] position in bed. HEENT: PERRL, EOMI. Sclera anicteric. Tacky mucous membranes. Neck: Supple. Respiratory: Respirations are nonlabored she is speaking in full sentences. Occasional harsh, dry cough. Lung sounds are diminished throughout with no wheezes Cardiovascular: Regular rate and rhythm with S1-S2. Chest: Dialysis catheter in the left anterior chest. Gastrointestinal: Abdomen is soft, nontender, and nondistended with positive bowel sounds. Skin: Warm and dry. Generalized pallor. Extremities: No cyanosis, clubbing, or significant edema. Radial and pedal pulses intact. Neurological: Alert. Cranial nerves 2-12 are grossly intact. Mild right-sided weakness. Psychiatric: Pleasant and cooperative with appropriate mood. Suffers from short-term memory loss. DS: Data Data Completed and Pending Labs on day of discharge: Labs from last 24 hours 03/14/24 03/14/24 05:42 05:41 WBC 7.2 RBC 3.26 L Hgb 11.4 L Hct 35.4 L MCV 108.6 H MCH 35.0 H MCHC 32.2 RDW 15.1 H Plt Count 201 MPV 10.0 Sodium 136 L Potassium 3.2 L Chloride 101 Carbon Dioxide 30 Anion Gap 5 BUN 10 D Creatinine 4.00 H Estim Creat Clear Calc 11 Estimated GFR 11 L Glucose 89 Calcium 8.9 Phosphorus 3.8 Magnesium 2.1 Total Bilirubin 0.7 AST 18 ALT 12 Alkaline Phosphatase 62 Total Protein 6.0 L Albumin 4.0 Random Vancomycin 16.6 Preliminary micro results at discharge 03/13/24 05:55 Blood Culture - Preliminary Blood 03/13/24 05:56 Blood Culture - Preliminary Blood Imaging Radiologist's impression: ITS Impressions Chest X-Ray 03/12/24 16:09 IMPRESSION: 1. Stable airspace opacities in the lower lung zones, likely atelectasis/scarring. Chest CTA 03/12/24 19:43 IMPRESSION: 1. Right lower lobe pneumonia. 2. 2.1 cm nodule in right lung lower lobe, which may be infection. Noncontrast low-dose chest CT is recommended in 1-3 months to exclude malignancy. 3. No pulmonary embolus. 4. Mild emphysema. 5. Healing fractures of right 10th and 11th ribs. Lexiscan Stress Test 03/14/24 11:52 IMPRESSION: 1. No definite ischemia or infarct. 2. Normal left ventricular ejection fraction measuring >70%. Discharge Plan Discharge Attending physician on discharge: Rod Isidro Consulting providers: Joao Walter Discharging Clinician: Rod Isidro Anticipated Discharge Date/Time: 03/14/24 13:41 Patient Disposition: [facility] (Former[facility]) Activity: as tolerated Diet: renal and other - see discharge instructions Discharge Instructions: Soft and bite sized level 6 diet thickened liquid Patient Instructions: Heart Failure (GEN) Patient Language: Indian Follow-up/Referrals: Anay,MD Jasson [Primary Care Provider] - 1 Week Discharge Medications: New doxycycline hyclate 100 mg capsule 100 mg PO Q12H Qty: 10 0RF Continued aspirin [Adult Low Dose Aspirin] 81 mg tablet,delayed release (DR/EC) 81 mg PO DAILY gabapentin 100 mg Capsule 100 mg PO TID Patient Comments: HS cholecalciferol (vitamin D3) 125 mcg (5,000 unit) Tablet 125 mcg PO DAILY pantoprazole 40 mg tablet,delayed release (DR/EC) 40 mg PO QAM hydralazine 25 mg tablet 25 mg PO Q6H PRN (Reason: SBP greater than 160) ipratropium-albuterol 0.5 mg-3 mg(2.5 mg base)/3 mL solution for nebulization 3 ml inhalation BID PRN (Reason: SOB ) atorvastatin 40 mg Tablet 40 mg PO DAILY Qty: 30 0RF acetaminophen 325 mg Tablet 650 mg PO Q6H PRN (Reason: Mild Pain (1-3) Or Fever) Qty: 30 0RF sevelamer HCl 800 mg tablet 800 mg PO TID Rx Instructions: Must administer with a meal/food amoxicillin-pot clavulanate 250-125 mg Tablet 1 tablet PO Q12H Qty: 8 0RF Rx Instructions: Dose after dialysis on dialysis days. Date of admission: 03/13/24 08:17 Primary Care Provider: Anay,Jasson Admitting Provider: Fransisco Lugo V. Attending physician on admission: Terrie Esparza Condition: Stable
--- NOTE | 2024-03-14 14:55 | PC.NURSE ---
Attempted to find secured valuables per the d/c tasks and was unable to find any valuables in pt. closet or safe. Discussed with pt.'s family member in the room who states she probably didn't actually bring any valuables.
[2024-03-17 16:17] LABS: Mycoplasma IgM Antibody Titer 1044 U/mL
--- OUTSIDE RECORDS SUMMARY | 2024-03-19 18:36 | XMS_ITS | Clinical Summary ---
Author Organization [facility] Address [address] [place] [address] Care Team Providers Care Bus Escort Name Role Phone Unavailable Primary Care Provider Unavailabl e Source Comments [facility],non-owned Affiliates and Associated Physician Practices is amultiple site organization consisting of ambulatory clinics and hospital sitesin [place] and [place]. This disclosure is being madepursuant to the Care Everywhere program and may not contain all information available regarding this patient. Last updated 17.[facility] Active Problems Problem Noted Date Diagnosed Date COPD exacerbation 02/27/2023 Social History Tobacco Use Types Packs/Day Years Used Date Smoking Tobacco: Never Assessed Sex and Gender Information Value Date Recorded Sex Assigned at Not on file Gender Identity Not on file Sexual Orientation Not on file Plan of Treatment Health Maintenance Due Date Last Done Comments BONE DENSITY TESTING 1950 COLOGUARD (AGES 45-75) - COL ON CA SCREENING 1950 COLON MONITORING 1950 COLONOSCOPY - COLON CA SCREENING 1950 CT COLONOGRAPHY - COLON CA SCREENING 1950 Colorectal Cancer Screening 1950 FIT - COLON CA SCREENING 1950 FLEX SIG - COLON CA SCREENING 1950 LIPID TESTING 1950 PNEUMOCOCCAL VACCINE 65+ (1 of 2 - PCV) 08/23/1957 HEPATITIS C SCREENING 08/19/1969 DTAP/TDAP/TD VACCINES (1 - Tdap) 08/23/1970 HEPATITIS B VACCINE (1 of 3 - Risk Dialysis 4-dose series) 1971 ZOSTER VACCINE (1 of 2) 08/23/2001 Respiratory Syncytial Virus (RSV) Vaccine Pt: or over 60 yrs (1 - Risk 60-74 years 1-dose series) 2011 DEPRESSION SCREENING 03/19/2023 COVID-19 VACCINE (3 - 2023-2 5 season) 2023 06/18/2020, 05/21/2020 INFLUENZA VACCINE (#1) 2023 3, 12/17/2021, 12/05/2021 MAMMOGRAM 10/02/2024 10/02/2022, 03/06/2022, 02/20/2022 HIB VACCINE Aged Out No longer eligi ble based on patient's age to complete this topic HPV VACCINE Aged Out No longer eligi ble based on patient's age to complete this topic MENINGOCOCCAL VACCINE Aged Out No galina daisha eligible based on patient's age to complete this topic
--- OUTSIDE RECORDS SUMMARY | 2024-03-19 18:37 | XMS_ITS | Encounter Summary ---
Author Organization [facility] Address [address] [place] [address]. [place], [place] [id number] [place] [id number] Care Team Providers [employer] Name Role Phone Jasson Cueva MD Primary Care Provider [phone] Huber Milligan MD Unavailable [phone] Norm Hopkins MD Unavailable [phone] Encounter Details Date Type Department Care Team (Latest Contact Info) Description 11/22/2023 Travel Social History Tobacco Use Types Packs/Day Years Used Date Smoking Tobacco: Former Cigarettes Smokeless Tobacco: Never Alcohol Use Standard Drinks/Week Comments Not Currently 0 (1 standard drink = 0.6 oz pur e alcohol) Humiliation, Afraid, Rape, and Kick questionnair e Answer Date Recorded Within the last year, have y ou been afraid of your partner or ex-partner? No 12/20/2022 Within the last year, have y ou been humiliated or emotionally abused in other ways by your partner or ex-partner? No Within the last year, have y ou been kicked, hit, slapped, or otherwise physically hurt by your partner or ex-partner? No 12/20/2022 Within the last year, have y ou been raped or forced to have any kind of sexual activity by your partner or ex-partner? No 12/20/2022 Social Connection and Isolation Panel [NHANES] A nswer Date Recorded In a typical week, how many times do you talk on the phone with family, friends, or neighbors? Three times a week 12/20/2022 How often do you get togethe r with friends or relatives? Three times a week 12/20/2022 How often do you attend chur ch or druze services? Never 12/20/2022 Do you belong to any clubs o r organizations such as gnosticist groups, unions, fraternal or athletic groups, or school groups? No 12/20/2022 How often do you attend meet ings of the clubs or organizations you belong to? Never 12/20/2022 Are you , , di vorced, , never , or living with a partner? 12/20/2022 AUDIT-C Answer Date Recorded Q1: How often do you have a drink containing alcohol? Never 12/20/2022 Q2: How many drinks containi ng alcohol do you have on a typical day when you are drinking? Patient does not drink Q3: How often do you have si x or more drinks on one occasion? Never 12/20/2022 Overall Financial Resource Strain (CARDIA) Answe r Date Recorded How hard is it for you to pa y for the very basics like food, housing, medical care, and heating? Not hard at all 12/20/2022 [facility] [place] [facility] Occupat ional Health - Occupational Stress Questionnaire Answer Date Recorded Do you feel stress - tense, restless, nervous, or anxious, or unable to sleep at night because your mind is troubled all the time - these days? Not at all 12/20/2022 Exercise Vital Sign Answer Date Recorde d On average, how many days pe r week do you engage in moderate to strenuous exercise (like a brisk walk)? 0 days 12/20/2022 On average, how many minutes do you engage in exercise at this level? 0 min 12/20/2022 Hunger Vital Sign Answer Date Recorded Within the past 12 months, y ou worried that your food would run out before you got the money to buy more. Never true 12/21/19 23 Within the past 12 months, t he food you bought just didn't last and you didn't have money to get more. Never true 12/20/2022 PRAPARE - Transportation Answer Date Re corded In the past 12 months, has l ack of transportation kept you from medical appointments or from getting medications? No 06/2022 In the past 12 months, has l ack of transportation kept you from meetings, work, or from getting things needed for daily living? No 12/20/2022 Housing Stability Vital Sign Answer Karri e Recorded In the last 12 months, was t here a time when you were not able to pay the mortgage or rent on time? No 12/20/2022 In the last 12 months, how many places have you lived? 1 12/20/2022 In the last 12 months, was t here a time when you did not have a steady place to sleep or slept in a senior care (including now)? No 12/20/2022 Comments No Sex and Gender Information Value Date Recorded Sex Assigned at Not on file Legal 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 CONTRIBUTION [employer]IC[employer] Gender Identity Not on file Sexual Orientation Not on file documented as of this encounter Functional Status * Are you deaf or do you have serious difficulty hearing Answer Date of Assessment Author Status No 01/08/2023 8:00 PM Sara Pena R N Active * Are you blind or do you have serious difficulty seeing, even when wearing glasses? Answer Date of Assessment Author Status No 01/08/2023 8:00 PM Sara Pena R N Active * Do you have serious difficulty walking or climbing stairs? Answer Date of Assessment Author Status Yes 01/08/2023 8:00 PM Sara Pena R N Active * Do you have difficulty dressing or bathing? Answer Date of Assessment Author Status No 01/08/2023 8:00 PM Sara Pena R N Active * Because of a physical, mental, or emotional condition, do you have difficulty doing errands alone such as visiting a doctor's office or shopping? Answer Date of Assessment Author Status No 01/08/2023 8:00 PM Sara Pena R N Active documented as of this encounter Mental Status * Because of a physical, mental, or emotional condition, do you have serious difficulty concentrating, remembering, or making decisions? Answer Entry Date Author Status No 01/08/2023 8:00 PM Sara Pena R N Active documented in this encounter Plan of Treatment Not on file documented as of this encounter Goals Goal Patient Goal Type Associated Problems Recent Progress Patient-Stated? Author Patient will return to prior living situation and remain independent in ADLs upon discharge from hospital General Sara Evans, DANIAL Safety ? Patient/family will have appropriate support at home upon discharge Lifestyle Dannielle Soto RN documented as of this encounter Visit Diagnoses Not on filedocumented in this encounter Care Teams Corporation Pilot Relationship Specialty Start Date End Date Jasson Cueva MD [address] [place] [phone] PCP - General FAMILY PRACTICE 11/03/18 Huber Milligan MD [address] [place] [phone] Consulting Physician Vascular Neurology 04/30/19 Norm Hopkins MD [address] [place] [id number] Consulting Physician CLINICAL CARDIAC ELECTROPHYSIOLOGY 04/30/19 documented as of this encounter
--- OUTSIDE RECORDS SUMMARY | 2024-03-19 18:37 | XMS_ITS | Encounter Summary ---
Author Organization [facility] Address [address] [place] [address]. [place], [place] [address] [place] [address] Care Team Providers Care Professor Of Psychology Name Role Phone Jasson Cueva MD Primary Care Provider [phone] Huber Milligan MD Unavailable [phone] Norm Hopkins MD Unavailable [phone] Encounter Details Date Type Department Care Team (Latest Contact Info) Description 02/05/2024 Travel Social History Tobacco Use Types Packs/Day [...] often do you attend chur ch or scientology services? Never 12/20/2022 Do you belong to any clubs o r organizations such as zoroastrian groups, unions, fraternal or athletic groups, or [...] and heating? 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
--- OUTSIDE RECORDS SUMMARY | 2024-03-19 18:37 | XMS_ITS | Encounter Summary ---
Author Organization [facility] Address [address] [place] [address]. [place], [place] [address] [place] [address] Care Team Providers Care Wheel Installer Name Role Phone Jasson Cueva MD Primary Care Provider [phone] Huber Milligan MD Unavailable [phone] Norm Hopkins MD Unavailable [phone] Encounter Details Date Type Department Care Team (Latest Contact Info) Description 02/07/2024 Travel Social History Tobacco Use Types Packs/Day [...] often do you attend chur ch or bahai services? Never 12/20/2022 Do you belong to any clubs o r organizations such as judaism groups, unions, fraternal or athletic groups, or [...] and heating? Not hard at all 12/20/2022 [facility] [place] of Occupat ional Health - Occupational Stress [...] place to sleep or slept in a fdc (including now)? 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
--- OUTSIDE RECORDS SUMMARY | 2024-03-19 18:37 | XMS_ITS | Encounter Summary ---
Author Organization [facility] Address [address] [place] [address]. [place], [place] [address] [place] [address] Care Team Providers Care Line Supervisor Name Role Phone Jasson Cueva MD Primary Care Provider [phone] Huber Milligan MD Unavailable [phone] Norm Hopkins MD Unavailable [phone] Reason for Visit * Reason Onset Date Comments Question 05/15/2023 Encounter Details Date Type Department Care Team (Late st Contact Info) Description 05/15/2023 Telephone [facility] [address] [place] [address] [place] [address] [place] [address] Question Social History Tobacco Use Types Packs/Day Years [...] often do you attend chur ch or uatsdin services? Never 12/20/2022 Do you belong to any clubs o r organizations such as jew groups, unions, fraternal or athletic groups, or [...] and heating? Not hard at all 12/20/2022 [facility] Questionnaire Answer Date [...] money to buy more. Never true 12/21/19 Within the past 12 months, t he [...] place to sleep or slept in a half-way (including now)? 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 Answer Entry Date Author Status No 01/08/2023 8:00 PM CDT Sara Zeng R N Active documented in this encounter Progress Notes * Mayra Haywood RN - 05/15/2023 2:02 PM CST Patient's son called very upset that patient's catheter change time had been moved to tomorrow and it was very important that she dialyze but obviously not important enough that since he couldn't get there at 3 pm (he is able to get there at 3:30pm) that they just moved it to the next day. I did explain to him that this office was a different entity than the dialysis unit and that he call [facility] for further direction. He stated he had already spoken with them and they couldn't explain whythe hospital couldn't see Trisha today. He states he has a life and job and sorry . I was able to get the direct number to IR and gave him both that # and the [facility]ona [facility] # to call to get answers as [facility] was not involved in any of the above arrangements. K HANDLER documented in this encounter Plan of Treatment Not on file documented as of this encounter Goals Goal Patient Goal Type Associated Problems Recent Progress Patient-Stated? Author Patient will return to prior living situation and remain independent in ADLs upon discharge from hospital General Sara Evans RN Safety ? Patient/family will have appropriate support at home upon discharge Lifestyle No Dannielle Ramirez RN documented as of this encounter Visit Diagnoses Not on filedocumented in this encounter Care Teams Line Supervisor Relationship Specialty Start Date End Date Jasson Cueva MD [address] [place] [phone] PCP - General FAMILY PRACTICE 11/03/18 Huber Milligan MD [address] [place] [phone] Consulting Physician Vascular Neurology 04/30/19 Norm Hopkins MD [address] [place] [address] Consulting Physician CLINICAL CARDIAC ELECTROPHYSIOLOGY 04/30/19 documented as of this encounter
--- OUTSIDE RECORDS SUMMARY | 2024-03-19 18:37 | XMS_ITS | Patient Health Summary ---
Author Organization [facility] Address [address] [place] [address] Care Team Providers Care Client Service Executive Name Role Phone Unavailable Primary Care Provider Unavailabl e Note from [facility],non-owned Affiliates and Associated Physician Practices is amultiple site organization consisting of ambulatory clinics and hospital sitesin [place], [place], [place] and [place]. This disclosure is being madepursuant to the Care Everywhere program and may not contain all information available regarding this patient. Last updated 17.[facility] Active Problems Problem Noted Date Diagnosed Date COPD exacerbation 02/27/2023 Social History Tobacco Use Types Packs/Day Years Used Date Smoking Tobacco: Never Assessed Sex and Gender Information Value Date Recorded Sex Assigned at Not on file Gender Identity Not on file Sexual Orientation Not on file
--- OUTSIDE RECORDS SUMMARY | 2024-03-19 18:37 | XMS_ITS | Encounter Summary ---
Author Organization [facility] Address [address] [place] [address]. [place], [place] [address] [place] [address] Care Team Providers Care Knit Goods Mender Name Role Phone Jasson Cueva MD Primary Care Provider [phone] Huber Milligan MD Unavailable [phone] Norm Hopkins MD Unavailable [phone] Reason for Visit * Reason Onset Date Comments Other 06/07/2023 Encounter Details Date Type Department Care Team (Late st Contact Info) Description 06/07/2023 Telephone [facility] [address] [email or web address] [address] [place] [address] [place] [address] Other Social History Tobacco Use Types Packs/Day Years [...] often do you attend chur ch or holiness services? Never 12/20/2022 Do you belong to any clubs o r organizations such as mormonism groups, unions, fraternal or athletic groups, or [...] and heating? Not hard at all 12/20/2022 [facility] - Occupational Stress Questionnaire Answer [...] place to sleep or slept in a [place] [facility] [place] facility (including now)? 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 Zack requested that pt catheter exchange to be done at [facility]. Zack explained that he spoke with [facility] [place] and was told that the procedure could not be done at [facility] due to not having privileges. Zack was told by our office that we could not sendthe orders to [facility] that the matter would need to be taken care of by [facility]. This data analyst report writer then spoke to Zack. This data analyst report writer explained to him that a doctor from [facility] would have to be willing to co sign orders. Zack was told that this data analyst report writer would reach out to [facility] Ir department and see if their doctor was willing to co-sign orders. I explained to Zack once I spoke with the IR department I would let [facility] know what would need to be done and that [facility] would have to have to send the order due to [facility] not having the pt chart. Zack was very upset. Prior to getting a chance to call [facility] their nurse contacted our office and informed us that they arewilling to co-sign orders and faxed [facility] the form that would need to be filled out and sent back along with the order. I spoke with Jelly from [facility] and explained what would need to be done and faxed the form to Mary. Greg segura. I contacted Zack to update him on the matter. Zack was still upset that he was told that this could not be done in the beginning. I apologized to himthat this has happened and informed him [facility]. Zack states he is already on his way to [facility]. Zack was still upset and was transferred to [facility] airline pilot/first officer Rosemary to have further explanation on the matter. Dayna at [facility] was updated that the pt was having the cath exchange done today at [facility]. Jelly voiced understanding. documented in this encounter Plan of Treatment [...] on filedocumented in this encounter Care Teams Knit Goods Mender Relationship Specialty Start Date End Date Jasson Cueva MD [address] [place] [phone] PCP - General FAMILY PRACTICE 11/03/18 Huber Milligan MD [address] [place] [phone] Consulting Physician Vascular Neurology 04/30/19 Norm Hopkins MD [address] [place] [address] Consulting Physician CLINICAL CARDIAC ELECTROPHYSIOLOGY 04/30/19 documented as of this encounter
--- OUTSIDE RECORDS SUMMARY | 2024-03-19 18:37 | XMS_ITS | Encounter Summary ---
Author Organization [facility] Address [address] [place] [address]. [place], [place] [address] [place] [address] Care Team Providers Care Slitter Helper Name Role Phone Jasson Valdivia MD Primary Care Provider [phone] Huber Milligan MD Unavailable [phone] Norm Hopkins MD Unavailable [phone] Encounter Details Date Type Department Care Team (Latest Contact Info) Description 09/03/2023 1:16 PM CDT - 09/03/2023 11:59 PM CDT Hospital Encounter [facility] [address] [place] [address] [place] [address] Jasson Valdivia MD [address] [place] [phone] Discharge Disposition: Home or Self Care (Routine Discharge) Social History Tobacco Use Types Packs/Day Years [...] often do you attend chur ch or hindu services? Never 12/20/2022 Do you belong to any clubs o r organizations such as yazdanism groups, unions, fraternal or athletic groups, or [...] and heating? Not hard at all 12/20/2022 [facility] [place] of Occupat ional Health - Occupational Stress [...] place to sleep or slept in a mcc (including now)? 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 Answer Entry Date Author Status No 01/08/2023 8:00 PM CDT Sara Zeng R N Active documented in this encounter Medications at Time of Discharge amLODIPine 5 MG tablet 1 tablet (5 mg total) daily. 12/21/2020 aspirin EC 81 MG tablet Take 1 tablet (81 mg total) by mouth daily. furosemide (LASIX) 20 MG tabletIndication s:on non dialysis days Take 2 tablets (40 mg total) by mouth. Indications: on non dialysis days gabapentin (NEURONTIN) 100 MG capsule Take 1 capsule (100 mg total) by mouth 3 (three) times daily. 03/13/2023 metoprolol succinate ER (TOPROL-XL) 25 MG 24 hr tablet Take 1 tablet (25 mg total) by mouth daily for 30 days. 30 tablet 01/06/2023 vitamin D3, cholecalciferol, 5000 UNITS capsule Take 1 capsule (125 mcg total) by mouth daily. HYDROcodone-acet aminophen (NORCO) 5-325 MG tabletIndication s:Acute Pain < 7 Day Supply Take 1 tablet by mouth every 6 (six) hours as needed. Indications: Acute Pain < 7 Day Supply 10 tablet 01/05/2023 11/22/2023 omeprazole (PRILOSEC) 20 MG capsule Take 1 capsule (20 mg total) by mouth daily. 02/05/2024 documented as of this encounter Plan of Treatment Not on [...] Ramirez RN documented as of this encounter Procedures Procedure Name Priority Date/Time Associated Diagnosis Comments ECG 12-LEAD Routine 09/03/2023 1:25 PM CDT Acute CHF (CMS/HCC [facility]/HCC) documented in this encounter Results * ECG 12 lead (09/03/2023 1:25 PM CDT) 09/03/2023 1:25 PM CDT [facility] - 09/03/2023 1:38 PM CDT ? [facility] ?[address] [place], [place] ??[address] ? Test Date: ?2023-09-03 Pat Name: ? ALAYNA WAITE ?Department: ?? 3 ? Room: ? Gender: ? Female ? Parking Technician: ?? JE : ?1950 ? Requested By: JASSON VALDIVIA Order Number: [id number] ? Reading MD: ?? Mark Vazquez ? Measurements Intervals ?[place] ? Rate: ? 68 ? P: ?45 VA: ? 158 ?QRS: ?-80 QRSD: ? 90 ? T: ?64 QT: ? 407 ? QTc: ?435 ? Interpretive Statements SINUS RHYTHM PATTERN CONSISTENT WITH PULMONARY DISEASE LEFT ANTERIOR FASCICULAR BLOCK ??[QRS AXIS <= -45, QR IN I, RS IN II] Procedure Note Mark Vazquez MD - 09/03/[address] [place] [address] Test Date: 2023-09-03 Pat Name: ALAYNA WAITE Department: 3 Room: Gender: Female Parking Technician: HELIO : 1950 Requested By: JASSON VALDIVIA Order Number: [id number] Tae MD: Mark Vazquez Measurements Intervals [place] Rate: 68 P: 45 VA: 158 QRS: -80 QRSD: 90 T: 64 QT: 407 QTc: 435 Interpretive Statements SINUS RHYTHM PATTERN CONSISTENT WITH PULMONARY DISEASE LEFT ANTERIOR FASCICULAR BLOCK [QRS AXIS <= -45, QR IN I, RS IN II] us Jasson Valdivia MD ECG ORDERABLES Final Resul t [facility] documented in this encounter Visit Diagnoses Diagnosis Acute CHF ([facility])- Primary Congestive heart failure, unspecified documented in this encounter Care Teams Slitter Helper Relationship Specialty Start Date End Date Jasson Valdivia MD [address] [place] [address] PCP - General FAMILY PRACTICE 11/03/18 Huber Milligan MD [address] [place] [phone] Consulting Physician Vascular Neurology 04/30/19 Norm Hopkins MD [address] [place] [address] Consulting Physician CLINICAL CARDIAC ELECTROPHYSIOLOGY 04/30/19 documented as of this encounter
--- OUTSIDE RECORDS SUMMARY | 2024-03-19 18:37 | XMS_ITS | Encounter Summary ---
Author Organization [facility] Address [address] [place] [address]. [place], [place] [id number] [place] [id number] Care Team Providers Care Line Department Supervisor Name Role Phone Jasson Cueva MD Primary Care Provider [phone] Huber Milligan MD Unavailable [phone] Norm Hopkins MD Unavailable [phone] Reason for Referral * Imaging (Routine) - Closed Specialty Diagnoses / Procedures Referred By Contac t Referred To Contact RADIOLOGY Diagnoses Acute CHF ([facility]/HCC) Procedures USE ECHOCARDIOGRAM Jasson Cueva MD [address] [place] [phone] Phone: tel: fax: Referral ID Status Reason Start Date Expiration Date Visits Re quested Visits Authorized [id number] Closed 2023 08/23/2024 1 1 Reason for Visit * Imaging (Routine) - Closed Specialty Diagnoses / Procedures Referred By Contac t Referred To Contact RADIOLOGY Diagnoses Acute CHF ([facility]/HCC) Procedures USE ECHOCARDIOGRAM Jasson Cueva MD [address] [place] [phone] Phone: tel: fax: Referral ID Status Reason Start Date Expiration Date Visits Re quested Visits Authorized [id number] Closed 2023 08/23/2024 1 1 Encounter Details Date Type Department Care Team (Latest Contact Info) Description 09/03/2023 12:09 PM CDT - 09/03/2023 1:15 PM CDT Hospital Encounter [facility] [address] [place] [address] Jasson Cueva MD [address] [place] [phone] Discharge Disposition: Home or Self Care (Routine [...] often do you attend chur ch or adventist services? Never 12/20/2022 Do you belong to any clubs o r organizations such as nondenominational groups, unions, fraternal or athletic groups, or [...] and heating? Not hard at all 12/20/2022 [facility] - Occupational Stress [...] place to sleep or slept in a long-term (including now)? No 12/20/2022 Comments No Sex and Gender Information Value Date Recorded Sex Assigned at Not on file Legal 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 [employer] Gender Identity Not on file Sexual Orientation Not on file documented as of this encounter Functional Status * Are you deaf or do you have serious difficulty hearing Answer Date of Assessment Author Status No 01/08/2023 8:00 PM CDT Sara Zeng R N Active * Are you blind or do you have serious difficulty seeing, even when wearing glasses? Answer Date of Assessment Author Status No 01/08/2023 8:00 PM CDT Sara Zeng R N Active * Do you have serious difficulty walking or climbing stairs? Answer Date of Assessment Author Status Yes 01/08/2023 8:00 PM JULYT Sara Zeng R N Active * Do you have difficulty dressing or bathing? Answer Date of Assessment Author Status No 01/08/2023 8:00 PM CDT Sara Zeng R N Active * Because of a [...] in ADLs upon discharge from hospital General No Sara Lopez, DANIAL Safety ? Patient/family will have appropriate support at home upon discharge Lifestyle No Dannielle Ramirez RN documented as of this encounter Procedures Procedure Name Priority Date/Time Associated Diagnosis Comments USE ECHOCARDIOGRAM Routine 09/03/2023 1: 06 PM CDT Acute CHF ([facility]) documented in this encounter Results * USE ECHOCARDIOGRAM (09/03/2023 1:06 PM CDT) Anatomical Region Laterality Modality Cardiac Ultrasound 09/03/2023 12:2 4 PM CDT Narrative 09/04/2023 8:45 AM CDT ?Echocardiography Report Pat.Name: ??Trisha Waite ?Pat.ID: ?[id number] ? St.Date: ?? 09/03/2023 ? Refer.MD: ??Outreach, [facility] Exam Time: 12:24:00 PM ? Study Type:OUTREACH ? Height: ?66 in ? Weight: ?180 lb ? BSA: ? 1.91 m2 ?Age: ??1950,73Y ? Sex: ? F ? Sonogrphr: Sf ? Pat. Stat.:Outpatient ? Reason for Study:Acute congestive heart failure Procedures: Study performed at [place], [place] and interpreted by [facility]. 2D, M-mode, Doppler, Color Flow ++++++++++++++++++++++++++++++++++++ SUMMARY: ++++++++++++++++++++++++++++++++++++ The left ventricular size is normal. The left ventricular systolic function is normal. Estimated left ventricular ejection fraction is 55-60%. The left atrial size is mildly enlarged. Left ventricular diastolic function is indeterminant. The right ventricle size is normal. The right ventricular function is normal. Compared to study from 11/16/2021, there is no interval change. ++++++++++++++++++++++++++++++++++++ FINDINGS: ++++++++++++++++++++++++++++++++++++ LV: ? The left ventricular size is normal. The left ventricular ?systolic function is normal. Estimated left ventricular ?ejection fraction is 55-60%. Left ventricular diastolic ?function is indeterminant RV: ? The right ventricle size is normal. The right ventricular ?function is normal. LA: ? The left atrial size is mildly enlarged. RA: ? The right atrial size is normal. ARIELLA: ? No evidence of pericardial effusion. AO: ? The proximal ascending aorta measures 3.7cm. SVn: ?Inferior vena cava is normal. AV: ? No evidence of aortic valve stenosis. No evidence of aortic ?regurgitation. The aortic valve not well visualized. MV: ? Structurally normal mitral valve. Mild mitral regurgitation. ?Calcified anterior and posterior mitral annulus. PV: ? Structurally normal pulmonic valve. Pulmonic valve not well ?visualized. TV: ? The tricuspid valve appears structurally normal. There is ?trace tricuspid regurgitation. <Electronic Signature> 09/04/2023 08:45 AM Sj Levy M.D. Procedure Note Sj Levy MD - 09/04/2023 Echocardiography Report Pat.Name: Trisha Waite Pat.ID: [id number] .Date: 09/03/2023 MD: Charla, [facility] Exam Time: 12:24:00 PM Study Type:[facility] Height: 66 in Weight: 180 lb BSA: 1.91 m2 Age: 6 1950,73Y Sex: F Sonogrphr: Sf Pat. Stat.:Outpatient Reason for Study:Acute congestive heart failure Procedures: Study performed at [facility], [place], [place] and interpreted by [facility]. 2D, M-mode, Doppler, Color Flow ++++++++++++++++++++++++++++++++++++ SUMMARY: ++++++++++++++++++++++++++++++++++++ The left ventricular size is normal. The left ventricular systolic function is normal. Estimated left ventricular ejection fraction is 55-60%. The left atrial size is mildly enlarged. Left ventricular diastolic function is indeterminant. The right ventricle size is normal. The right ventricular function is normal. Compared to study from 11/16/2021, there is no interval change. ++++++++++++++++++++++++++++++++++++ FINDINGS: ++++++++++++++++++++++++++++++++++++ LV: The left ventricular size is normal. The left ventricular systolic function is normal. Estimated left ventricular ejection fraction is 55-60%. Left ventricular diastolic function is indeterminant RV: The right ventricle size is normal. The right ventricular function is normal. LA: The left atrial size is mildly enlarged. RA: The right atrial size is normal. ARIELLA: No evidence of pericardial effusion. AO: The proximal ascending aorta measures 3.7cm. SVn: Inferior vena cava is normal. AV: No evidence of aortic valve stenosis. No evidence of aortic regurgitation. The aortic valve not well visualized. MV: Structurally normal mitral valve. Mild mitral regurgitation. Calcified anterior and posterior mitral annulus. PV: Structurally normal pulmonic valve. Pulmonic valve not well visualized. TV: The tricuspid valve appears structurally normal. There is trace tricuspid regurgitation. <Electronic Signature> 09/04/2023 08:45 AM Sj Levy M.D. us Jasson Cueva MD ECHO Final Resul t documented in this encounter Visit Diagnoses Diagnosis Acute CHF ([facility]/HCC) Congestive heart failure, unspecified documented in this encounter Care Teams Line Department Supervisor Relationship Specialty Start Date End Date Jasson Cueva MD [address] [place] [phone] PCP - General FAMILY PRACTICE 11/03/18 Huber Milligan MD [address] [place] [phone] Consulting Physician Vascular Neurology 04/30/19 Norm Hopkins MD [address] [place] [id number] Consulting Physician CLINICAL CARDIAC ELECTROPHYSIOLOGY 04/30/19 documented as of this encounter
--- OUTSIDE RECORDS SUMMARY | 2024-03-19 18:37 | XMS_ITS | Referral Summary ---
Author Organization [facility] Address [address] [place] [address] Care Team Providers Care Customer Service Supervisor Name Role Phone Unavailable Primary Care Provider Unavailabl e Source Comments [facility],non-owned Affiliates and Associated Physician Practices is amultiple site organization consisting of ambulatory clinics and hospital sitesin [place], [place], [place] and [place]. This disclosure is being madepursuant to the Care Everywhere program and may not contain all information available regarding this patient. Last updated 17.[facility] Active Problems Problem Noted Date Diagnosed Date COPD exacerbation 02/27/2023 Social History Tobacco Use Types Packs/Day Years Used Date Smoking Tobacco: Never Assessed Sex and Gender Information Value Date Recorded Sex Assigned at Not on file Gender Identity Not on file Sexual Orientation Not on file Plan of Treatment Not on file
--- OUTSIDE RECORDS SUMMARY | 2024-03-19 18:37 | XMS_ITS | Encounter Summary ---
Author Organization [facility] Address [address] [place] [address]. [place], [place] [id number] [place] [id number] Care Team Providers Care Cosmetic Sales Name Role Phone Jasson Cueva MD Primary Care Provider Huber Milligan MD Unavailable [phone] Norm Hopkins MD Unavailable [phone] Reason for Visit * Reason Comments Rib Pain Encounter Details Date Type Department Care Team (Late st Contact Info) Description 02/05/2024 9:13 AM ELECTRONIC BENCH TECHNICIAN - 02/05/2024 11:00 AM [facility] [address] [place] [address] Jr Cornell, DO [address] [place], [place] [address] Rib Pain Discharge Disposition: Home or Self Care (Routine [...] often do you attend chur ch or confucianism services? Never 12/20/2022 Do you belong to any clubs o r organizations such as synagogue groups, unions, [employer] or athletic groups, or school groups? No [...] and heating? Not hard at all 12/20/2022 [facility] [place] [facility] Occup[facility] - Occupational Stress [...] place to sleep or slept in a snf (including now)? No 12/20/2022 Comments No Sex and Gender Information Value Date Recorded Sex Assigned at Not on file Legal 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 ELECTRONIC BENCH TECHNICIAN Gender Identity Not on file Sexual Orientation Not on file documented as of this encounter Last Filed Vital Signs Vital Sign Reading Time Taken Comments Blood Pressure 128/75 02/05/2024 10:57 AM ELECTRONIC BENCH TECHNICIAN Pulse 74 02/05/2024 10:57 AM ELECTRONIC BENCH TECHNICIAN Temperature 36.5 ??C (97.7 ??F) 02/05/2024 9:18 AM CS T Respiratory Rate 18 02/05/2024 10:57 AM ELECTRONIC BENCH TECHNICIAN Oxygen Saturation 92% 02/05/2024 10:57 AM ELECTRONIC BENCH TECHNICIAN Inhaled Oxygen Concentration - - Weight 81.6 kg (180 lb) 02/05/2024 9:18 AM ELECTRONIC BENCH TECHNICIAN Height 170.2 cm (5' 7 ) 02/05/2024 9:18 AM ELECTRONIC BENCH TECHNICIAN Body Mass Index 28.19 02/05/2024 9:18 AM ELECTRONIC BENCH TECHNICIAN documented in this encounter Functional Status * Are you deaf or do you have serious difficulty hearing Answer Date of Assessment Author Status No 01/08/2023 8:00 PM CDT Sara Zeng R N Active * Are you blind or do you have serious difficulty seeing, even when wearing glasses? Answer Date of Assessment Author Status No 01/08/2023 8:00 PM CDSara Eduardo R N Active * Do you have serious difficulty walking or climbing stairs? Answer Date of Assessment Author Status Yes 01/08/2023 8:00 PM CDT Sara Zeng R [...] Assessment Author Status No 01/08/2023 8:00 PM CDSara Eduardo R N Active documented as of this encounter Mental Status * Because of a physical, mental, or emotional condition, do you have serious difficulty concentrating, remembering, or making decisions? Answer Entry Date Author Status No 01/08/2023 8:00 PM CDT Sara Zeng R N Active documented in this encounter Discharge Instructions * Discharge Instructions* Jr Cornell DO - 02/05/2024 10:43 AM ELECTRONIC BENCH TECHNICIAN Please go from here to your dialysis session at [address] the dialysis center Please refer to the attached discharge instructions regarding your diagnosis and treatment recommendations. You have been prescribed lidocaine patches as well as norco for pain from your fall and rib pain over the area of your prior rib fractures Please take all your home medications as directed. Please follow up with your primary doctor in the next week for re-evaluation Please return to the emergency department if: Worsening shortness of breath or lightheadedness Cough with new sputum production or Fevers (greater than 100.4 F) that are not controlled with over the counter fever medications You know yourself better than anyone. If you become concerned about your progress or believe your condition is worsening please return to the emergency department or call the nurses hotline at for further recommendations. TRONIC BENCH TECHNICIAN documented in this encounter Medications at Time of Discharge acetaminophen (TYLENOL) 325 MG tablet Take 2 tablets (650 mg total) by mouth every 4 (four) hours as needed for Pain. amLODIPine 5 MG tablet 1 tablet (5 [...] by mouth 3 (three) times daily. 03/13/2023 lidocaine 4 % patch Place 1 patch onto the skin daily. Remove & Discard patch within 12 hours or as directed by 30 patch 02/05/2024 metoprolol succinate ER (TOPROL-XL) 25 MG 24 hr tablet Take 1 tablet (25 mg total) by mouth daily for 30 days. 30 tablet 01/06/2023 vitamin D3, cholecalciferol, 5000 UNITS capsule Take 1 capsule (125 mcg total) by mouth daily. HYDROcodone-acet aminophen (NORCO) 5-325 MG tabletIndication s:Acute Pain < 3 Day Supply Take 1 tablet by mouth every 6 (six) hours as needed for Pain. Indications: Acute Pain < 3 Day Supply 12 tablet 02/05/2024 02/08/2024 documented as of this encounter ED Notes * Jr Fajardodaisha Cornell, - 02/05/2024 9:25 AM CST Chief Complaint Chief Complaint Patient presents with Rib Pain History of Present Illness 73 year old female with hx of ESRD on T/R/Sat dialysis last dialyzed on Sunday presenting to the ED for evaluation of right lateral rib pain after falling getting out of bed two days ago. Has not going to dialysis today due to pain. Sunday was getting out of bed to use the restroom and lost her footing and fell with her right side against a chair next to her bed. Has been having pain since. Hasbeen trying tylenol and ibuprofen yesterday without relief. Denies increased shortness of breath. Pain worse with coughing, deep breathing and movement. Denies any other pain or complaints. Not on ananticoagulant Medical History ALLERGIES: Review of patient's allergies indicates: No Known Allergies MEDICATIONS: Prior to Admission medications Medication Sig Start Date End Date Taking? Authorizing Provider aspirin EC 81 MG tablet Take 1 tablet (81 mg total) by mouth daily. Yes [facility] furosemide (LASIX) 20 MG tablet Take 2 tablets (40 mg total) by mouth. Indications: on non dialysisdays Yes Default History Genericprovider gabapentin (NEURONTIN) 100 MG capsule Take 1 capsule (100 mg total) by mouth 3 (three) times daily.03/13/23 Yes Default History Genericprovider HYDROcodone-acetaminophen (NORCO) 5-325 MG tablet Take 1 tablet by mouth every 6 (six) hours as needed for Pain. Indications: Acute Pain < 3 Day Supply 02/05/24 02/08/24 Yes Jr Cornell, DO lidocaine 4 % patch Place 1 patch onto the skin daily. Remove & Discard patch within 12 hours or as directed by MD 02/05/24 Yes Jr Cornell, DO metoprolol succinate ER (TOPROL-XL) 25 MG 24 hr tablet Take 1 tablet (25 mg total) by mouth daily for 30 days. 01/06/23 02/05/24 Yes Mandi Salmon MD acetaminophen (TYLENOL) 325 MG tablet Take 2 tablets (650 mg total) by mouth every 4 (four) hours as needed for Pain. Default History Genericprovider amLODIPine 5 MG tablet 1 tablet (5 mg total) daily. 12/21/20 [facility] vitamin D3, cholecalciferol, 5000 UNITS capsule Take 1 capsule (125 mcg total) by mouth daily. [facility] PAST MEDICAL HISTORY: Past Medical History: Diagnosis Date Acute kidney failure, unspecified ([facility]/HCC) Acute pulmonary edema ([facility]) CHF (congestive heart failure) ([facility]) Chronic kidney disease, stage IV (severe) ([facility]) CKD (chronic kidney disease) stage 3, GFR 30-59 ml/min ([facility]) COPD (chronic obstructive pulmonary disease) ([facility]) Depression Displaced fracture of proximal end of right humerus 11/06/2018 Hemiplegia and hemiparesis following cerebral infarction affecting right dominant side ([facility]) HLD (hyperlipidemia) Hypertension Hypertensive chronic kidney disease with stage 1 through stage 4 chronic kidney disease, or unspecified chronic kidney disease Ischemic stroke ([facility]) Memory deficit following other cerebrovascular disease Metabolic encephalopathy Neuropathy Osteoarthritis Other cholelithiasis without obstruction Other specified spondylopathies, cervical region ([facility]CC) Presence of other cardiac implants and grafts Unstable angina ([facility]) UTI (urinary tract infection) PAST SURGICAL HISTORY: Past Surgical History: Procedure Laterality Date DIALYSIS ACCESS SYSTEM Right JOINT REPLACEMENT SHOULDER SURGERY TOTAL HIP ARTHROPLASTY bilateral FAMILY HISTORY: Family History Problem Relation Name Age of Onset Heart Attack Mother SOCIAL HISTORY: Social History Tobacco Use Smoking status: Former Current packs/day: 1.00 Types: Cigarettes Smokeless tobacco: Never Vaping Use Vaping status: Never Used Substance Use Topics Alcohol use: Not Currently Drug use: Not Currently Types: Marijuana Review of Systems Review of Systems Constitutional: Negative for chills and fever. Respiratory: Negative for cough, chest tightness and shortness of breath. Cardiovascular: Positive for chest pain. Gastrointestinal: Negative for nausea and vomiting. Skin: Positive for color change. Physical Exam Filed Vitals: 02/05/24 0918 02/05/24 1000 02/05/24 1015 BP: 124/76 118/80 Pulse: 77 70 Resp: 20 18 Temp: 97.7 ??F (36.5 ??C) TempSrc: Temporal SpO2: 93% 94% 92% Weight: 81.6 kg (180 lb) Height: 1.702 m (5' 7 ) Physical Exam Vitals and nursing note reviewed. Constitutional: Comments: Uncomfortable appearing HENT: Head: Normocephalic and atraumatic. Nose: Nose normal. Mouth/Throat: Mouth: Mucous membranes are moist. Eyes: Conjunctiva/sclera: Conjunctivae normal. Pupils: Pupils are equal, round, and reactive to light. Cardiovascular: Rate and Rhythm: Normal rate. Pulses: Normal pulses. Pulmonary: Comments: Coarse breath sounds bilaterally. Tender to palpation over area of bruising on right lower lateral ribs. No palpable crepitus. Chest: Chest wall: Tenderness present. Abdominal: General: Abdomen is flat. Palpations: Abdomen is soft. Tenderness: There is no abdominal tenderness. Musculoskeletal: Cervical back: Normal range of motion. Skin: General: Skin is warm and dry. Findings: Bruising present. Neurological: General: No focal deficit present. Mental Status: She is alert and oriented to person, place, and time. Diagnostic Studies / Procedures ELECTROCARDIOGRAMS: Results for orders placed or performed during the hospital encounter of 02/05/24 ECG 12 lead Narrative [address] [place] [address] Test Date: 2024-02-05 Pat Name: ALAYNA LAWRENCE Department: 3 Room: EXAM 101 Gender: Female Bass Mechanism Maker: : 1950 Requested By: JR CORNELL Order Number: [id number] Reading MD: Measurements Intervals [place] Rate: 67 P: 48 DC: 165 QRS: -79 QRSD: 90 T: 50 QT: 419 QTc: 443 Interpretive Statements SINUS RHYTHM POSSIBLE ANTERIOR MYOCARDIAL INFARCTION , OF INDETERMINATE AGE INFERIOR MYOCARDIAL INFARCTION , OF INDETERMINATE AGE LABORATORY STUDIES: Results for orders placed or performed during the hospital encounter of 02/05/24 CBC W/DIFF AUTOMATED Result Value Ref Range WBC 8.53 4.00 - 10.80 x10'3/uL RBC 3.42 (L) 4.10 - 5.40 x10'6/uL HGB 11.7 (L) 12.0 - 16.0 G/DL HCT 37.0 36.0 - 47.0 % MCV 108.2 (H) 78.0 - 100.0 FL MCH 34.2 (H) 27.0 - 31.0 PG MCHC 31.6 (L) 33.0 - 36.0 G/DL RDW 13.2 11.5 - 14.5 % PLT 186 150 - 350 x10'3/uL MPV 10.1 7.4 - 10.4 FL CBC COMMENT NORMAL REFERENCE RANGE NOT ESTABLISHED FOR THE PROPORTIONAL LEUKOCYTE DIFFERENTIAL. NEUTROPHILS % 74.7 % LYMPHOCYTES % 14.3 % MONOCYTES % 7.3 % EOSINOPHILS % 2.8 % BASOPHILS % 0.7 % IMMATURE GRANS % 0.2 % NRBC % 0.0 % ABS. NEUTROPHILS 6.37 1.60 - 8.30 x10'3/uL ABS. LYMPHOCYTES 1.22 0.80 - 4.70 x10'3/uL ABS. MONOCYTES 0.62 0.00 - 1.50 x10'3/uL ABS. EOSINOPHILS 0.24 0.00 - 0.40 x10'3/uL ABS. BASOPHILS 0.06 0.00 - 0.20 x10'3/uL ABS. IMMATURE GRANULOCYTES 0.02 0.00 - 0.03 x10'3/uL ABS. NUCLEATED RBC'S 0.00 0.00 - 0.01 x10'3/uL COMPREHENSIVE METABOLIC PANEL Result Value Ref Range SODIUM S/P/B 136 136 - 145 MMOL/L POTASSIUM S/P/B 5.6 (H) 3.5 - 5.1 MMOL/L CHLORIDE S/P/B 100 98 - 107 MMOL/L CO2 21.2 21.0 - 32.0 MMOL/L GLUCOSE 108 (H) 70 - 99 MG/DL BUN 55 (H) 6 - 24 MG/DL CREATININE S/P/B 8.31 (H) 0.55 - 1.02 MG/DL CALCIUM S/P/B 9.4 8.4 - 10.5 MG/DL BILIRUBIN TOTAL S/P/B 0.4 0.2 - 1.0 MG/DL ALKALINE PHOSPHATASE S/P/B 61 55 - 142 U/L AST 10 (L) 15 - 37 U/L ALT 16 14 - 59 U/L TOTAL PROTEIN S/P/B 7.0 6.4 - 8.2 G/DL ALBUMIN S/P/B 3.4 3.4 - 5.0 G/DL ANION GAP 14.8 5.0 - 15.0 MMOL/L OSMOLALITY (CALC) 298 MOSM/KG GFR ESTIMATE 5 (L) >89 ML/MIN/1.73 M2 GFR NOTES GFR REFERENCES: TROPONIN, QUANT Result Value Ref Range TROPONIN I HIGH SENSITIVITY 10 0 - 51 ng/L PRO-BRAIN NATRIURETIC PEPTIDE Result Value Ref Range PRO-B TYPE NATRIURETIC PEPTIDE 771 (H) <125 PG/ML IMAGING STUDIES XR CHEST PA+LAT Final Result by User, [id number] (02/04 1016) [address] [place] [address] Examination: Two-view chest Exam time: 0937 hours. Clinical history: Right-sided pain after a fall. Comparison: 11/22/2023, 11/07/2021; CT of the chest, 02/27/2023. Technique: PA and lateral views Findings: Allowing for differences in projection and rotation, the cardiomediastinal silhouette is stable. Allowing for projection, the heart size is normal. Pulmonary vascularity is within normal limits. Left jugular dialysis catheter remains in place with the distal tip terminating in the right atrium. There is mild platelike subsegmental atelectasis in the right lower lobe. No confluent infiltrates or effusions are identified. There is no pneumothorax. Old right rib fractures are noted. No acute bony injury is identified. Right shoulder arthroplasty remains in place. Implanted loop recorder has been removed. IMPRESSION: 1. Mild platelike subsegmental atelectasis in the right lower lobe. Lungs otherwise clear. 2. Interval loop recorder removal. 3. Additional stable findings as described. Ordered By: JR CORNELL Interpreted By: Jacky Saul MD, 02/05/2024 10:08 AM ED Course / Medical Decision Making Medical Decision Making 73-year-old female presenting with right rib pain and bruising after a fall 2 days ago O2 sat 87-93% on room air, improved to low 90s without intervention. Otherwise unremarkable vitals. Coarse breath sounds bilaterally. Tender to palpation over area of bruising on right lower lateral ribs. No palpable crepitus. with an otherwise unremarkable physical exam. Ddx including but not limited to: rib fracture, fluid overload, pulmonary contusion Orders: cbc, cmp, CXR 2 view, troponin, bnp, ecg, fentanyl for pain Workup as above discussed with the patient and son who are agreeable with this plan. Amount and/or Complexity of Data Reviewed Labs: ordered. Decision-making details documented in ED Course. Radiology: ordered. Decision-making details documented in ED Course. ECG/medicine tests: ordered. ED Course as of 02/05/24 1047 Tue Feb 05, 2024 0959 WBC: 8.53 [RT] 0959 HGB(!): 11.7 [RT] 0959 PLT: 186 [RT] 1033 TROPONIN I HIGH SENSITIVITY: 10 Normal troponin [RT] 1033 PRO-B TYPE NATRIURETIC PEPTIDE(!): 771 Baseline. No significant elevation considering due for dialysis today [RT] 1033 POTASSIUM S/P/B(!): 5.6 Mild hyperkalemia [RT] 1033 CREATININE S/P/B(!): 8.31 ESRD on dialysis [RT] 1034 XR CHEST PA+LAT There is mild platelike subsegmental atelectasis in the right lower lobe. No confluent infiltrates or effusions are identified. There is no pneumothorax. Old right rib fractures are noted. No acute bony injury is identified. [RT] 1038 Confirmed with dialysis center they can get here in at 1130 today. Son and patient comfortablewith this plan. Discussed old fractures on cxr and plan for lidocaine patches and short course of norco for pain control. Will send home with incentive spirometer and close follow up with her primary doctor. All questions answered. Comfortable with plan for discharge and dialysis later this morning. O2 sat 90-92% on RA [RT] ED Course User Index [RT] Jr Cornell DO Clinical Impression Rib pain on right side (Primary) ESRD on dialysis ([facility]) Hyperkalemia Rib fracture Disposition: Discharge Jr Cornell DO 02/05/24 1047 TRONIC BENCH TECHNICIAN * Christy Sweeney RN - 02/05/2024 9:17 AM CST Assisted to stretcher from ; c/o much pain to R lateral ribs; area of bruising noted to lower R lateral costal area. Pt states stood from bed and fell against bed or chair 2 nights ago. Son with ptand states began c/o pain yesterday and continuing. No med taken for pain today. Took tylenol yesterday. Due for dialysis this am. Pt states no pain at rest, 'really bad' with movement. TRONIC BENCH TECHNICIAN documented in this encounter Plan of Treatment Not on file documented as of this encounter Goals Goal Patient Goal Type Associated Problems Recent Progress Patient-Stated? Author Patient will return to prior living situation and remain independent in ADLs upon discharge from hospital General No Sara Lopez RN Safety ? Patient/family will have appropriate support at home upon discharge Lifestyle No Dannielle Ramirez RN documented as of this encounter Procedures Procedure Name Priority Date/Time Associated Diagnosis Comments ECG 12-LEAD Routine 02/05/2024 10:26 AM ELECTRONIC BENCH TECHNICIAN XR CHEST PA+LAT STAT 02/05/2024 10:02 AM ELECTRONIC BENCH TECHNICIAN PRO-BRAIN NATRIURETIC PEPTIDE STAT 02/05/2024 9:40 AM ELECTRONIC BENCH TECHNICIAN COMPREHENSIVE METABOLIC PANEL STAT 02/05/2024 9:40 AM ELECTRONIC BENCH TECHNICIAN CBC W/DIFF AUTOMATED STAT 02/05/2024 9:40 AM ELECTRONIC BENCH TECHNICIAN TROPONIN, QUANT STAT 02/05/2024 9:40 AM ELECTRONIC BENCH TECHNICIAN documented in this encounter Results * ECG 12 lead (02/05/2024 10:26 AM ELECTRONIC BENCH TECHNICIAN) 02/05/2024 10:2 6 AM ELECTRONIC BENCH TECHNICIAN Narrative [facility] - 02/06/2024 8:58 AM ELECTRONIC BENCH TECHNICIAN ? [facility] ?[address] [place], [place] ??[address] ? Test Date: ?2024-02-05 Pat Name: ? ALAYNA LAWRENCE ?Department: ?? 3 ? Room: ? EXAM 101 Gender: ? Female ? Bass Mechanism Maker: ?? : ?1950 ? Requested By: JR CORNELL Order Number: [id number] ? Reading : ?? Andrzej Fuentes ? Measurements Intervals ?[place] ? Rate: ? 67 ? P: ?48 DC: ? 165 ?QRS: ?-79 QRSD: ? 90 ? T: ?50 QT: ? 419 ? QTc: ?443 ? Interpretive Statements SINUS RHYTHM POSSIBLE ANTERIOR MYOCARDIAL INFARCTION , OF INDETERMINATE AGE INFERIOR MYOCARDIAL INFARCTION , OF INDETERMINATE AGE TRONIC BENCH TECHNICIAN Procedure Note Andrzej Fuentes MD - 02/06/[address] [place] [address] Test Date: 2024-02-05 Pat Name: ALAYNA LAWRENCE Department: 3 Room: [facility] 101 Gender: Female Bass Mechanism Maker: : 1950 Requested By: JR CORNELL Order Number: [id number] Tae MD: Sherif Measurements Intervals [place] Rate: 67 P: 48 DC: 165 QRS: -79 QRSD: 90 T: 50 QT: 419 QTc: 443 Interpretive Statements SINUS RHYTHM POSSIBLE ANTERIOR MYOCARDIAL INFARCTION , OF INDETERMINATE AGE INFERIOR MYOCARDIAL INFARCTION , OF INDETERMINATE AGE TRONIC BENCH TECHNICIAN us Jr Cornell DO ECG ORDERABLES Final Re sult [facility] * XR CHEST PA+LAT (02/05/2024 10:02 AM ELECTRONIC BENCH TECHNICIAN) Anatomical Region Laterality Modality Chest Radiographic Sharon ging 02/05/2024 10:0 8 AM ELECTRONIC BENCH TECHNICIAN Impressions 02/05/2024 10:15 AM ELECTRONIC BENCH TECHNICIAN IMPRESSION: 1. Mild platelike subsegmental atelectasis in the right lower lobe. Lungs otherwise clear. 2. Interval loop recorder removal. 3. Additional stable findings as described. Ordered By: JR CORNELL Interpreted By: Jacky Saul MD, 02/05/2024 10:08 AM Narrative 02/05/2024 10:15 AM ELECTRONIC BENCH TECHNICIAN [address] [place] [address] Examination: Two-view chest Exam time: 0937 hours. Clinical history: Right-sided pain after a fall. Comparison: ??11/22/2023, 11/07/2021; CT of the chest, 02/27/2023. Technique: PA and lateral views Findings: Allowing for differences in projection and rotation, the cardiomediastinal silhouette is stable. Allowing for projection, the heart size is normal. Pulmonary vascularity is within normal limits. Left jugular dialysis catheter remains in place with the distal tip terminating in the right atrium. There is mild platelike subsegmental atelectasis in the right lower lobe. No confluent infiltrates or effusions are identified. There is no pneumothorax. Old right rib fractures are noted. No acute bony injury is identified. Right shoulder arthroplasty remains in place. Implanted loop recorder has been removed. Procedure Note Jacky Saul MD - 02/05/2024 [facility] [address] [place] [address] Examination: Two-view chest Exam time: 0937 hours. Clinical history: Right-sided pain after a fall. Comparison: 11/22/2023, 11/07/2021; CT of the chest, 02/27/2023. Technique: PA and lateral views Findings: Allowing for differences in projection and rotation, thecardiomediastinal silhouette is stable. Allowing for projection, the heartsize is normal. Pulmonary vascularity is within normal limits. Leftjugular dialysis catheter remains in place with the distal tip terminatingin the right atrium. There is mild platelike subsegmental atelectasis inthe right lower lobe. No confluent infiltrates or effusions areidentified. There is no pneumothorax. Old right rib fractures are noted.No acute bony injury is identified. Right shoulder arthroplasty remains inplace. Implanted loop recorder has been removed. IMPRESSION: 1. Mild platelike subsegmental atelectasis in the right lower lobe. Lungsotherwise clear. 2. Interval loop recorder removal. 3. Additional stable findings as described. Ordered By: JR CORNELL Interpreted By: Jacky Saul MD, 02/05/2024 10:08 AM us Jr Cornell DO GENERAL IMAGING Final Re sult * (ABNORMAL) PRO-BRAIN NATRIURETIC PEPTIDE (02/05/2024 9:40 AM ELECTRONIC BENCH TECHNICIAN) PRO-B TYPE NATRIURETIC PEPTIDE 771(H) <125 PG/ML 02/05/2024 10:14 AM ELECTRONIC BENCH TECHNICIAN [facility] Comment: CUT POINTS ESTABLISHED BY [employer] ON NT PROBNP (ICON) STUDY (2006). AGE INDEPENDENT: <300 PG/ML HAS A 99% NEGATIVE PREDICTIVE VALUE FOR EXCLUDING ACUTE CHF <50 YEARS: >450 PG/ML IS CONSISTENT WITH ACUTE CHF 50-75 YEARS: >900 PG/ML IS CONSISTENT WITH ACUTE CHF >75 YEARS: >1800 PG/ML IS CONSISTENT WITH ACUTE CHF IN PATIENTS WITH RENAL INSUFFICIENCY (GFR <60), >1200 PG/ML YIELDS A DIAGNOSTIC SENSITIVITY AND SPECIFICITY OF 89% AND 72% FOR ACUTE CHF. 02/05/2024 9:40 AM ELECTRONIC BENCH TECHNICIAN Jr Olimpia Connellycy DO LABORATORY Final Re sult Performing Organization Address [facility]/ZIP Co de Phone Number [facility] [address] [place] [address], * TROPONIN, QUANT (02/05/2024 9:40 AM ELECTRONIC BENCH TECHNICIAN) TROPONIN I HIGH SENSITIVITY 10 0 - 51 ng/L 02/05/2024 10:14 AM ELECTRONIC BENCH TECHNICIAN [facility] 02/05/2024 9:40 AM ELECTRONIC BENCH TECHNICIAN Jr Olimpia Connellycy DO LABORATORY Final Re sult Performing Organization Address [facility]/ZIP Co de Phone Number [facility] [address] [place] [address], [place] [phone] * (ABNORMAL) COMPREHENSIVE METABOLIC PANEL (02/05/2024 9:40 AM ELECTRONIC BENCH TECHNICIAN) SODIUM S/P/B 136 136 - 145 MMOL/L 02/05/2024 10:14 AM ELECTRONIC BENCH TECHNICIAN [facility] POTASSIUM S/P/B 5.6(H) 3.5 - 5.1 MMOL/L 02/05/2024 10:14 AM ELECTRONIC BENCH TECHNICIAN [facility] CHLORIDE S/P/B 100 98 - 107 MMOL/L 02/05/2024 10:14 AM ELECTRONIC BENCH TECHNICIAN [facility] CO2 21.2 21.0 - 32.0 MMOL/L 02/05/2024 10:14 AM ELECTRONIC BENCH TECHNICIAN [facility] GLUCOSE 108(H) 70 - 99 MG/DL 02/05/2024 10:14 AM [facility] Comment: FASTING GLUCOSE 100 TO 125 MG/DL IS CONSISTENT WITH IMPAIRED FASTING GLUCOSE. FASTING GLUCOSE >125 MG/DL IS CONSISTENT WITH DIABETES. RANDOM GLUCOSE >200 MG/DL WITH HYPERGLYCEMIC SYMPTOMS IS CONSISTENT WITH DIABETES. PER ADA GUIDELINES BUN 55(H) 6 - 24 MG/DL 02/05/2024 10:14 AM [facility] CREATININE S/P/B 8.31(H) 0.55 - 1.02 MG/DL 02/05/2024 10:14 AM [facility] CALCIUM S/P/B 9.4 8.4 - 10.5 MG/DL 02/05/2024 10:14 AM [facility] BILIRUBIN TOTAL S/P/B 0.4 0.2 - 1.0 MG/DL 02/05/2024 10:14 AM [facility] Comment: THIS ASSAY IS NOT RECOMMENDED FOR PATIENTS UNDERGOING TREATMENT WITH ELTROMBOPAG DUE TO THE POTENTIAL FOR FALSELY ELEVATED RESULTS. ALKALINE PHOSPHATASE S/P/B 61 55 - 142 U/L 02/05/2024 10:14 AM [facility] AST 10(L) 15 - 37 U/L 02/05/2024 10:14 AM [facility] ALT 16 14 - 59 U/L 02/05/2024 10:14 AM [facility] TOTAL PROTEIN S/P/B 7.0 6.4 - 8.2 G/DL 02/05/2024 10:14 AM [facility] ALBUMIN S/P/B 3.4 3.4 - 5.0 G/DL 02/05/2024 10:14 AM [facility] ANION GAP 14.8 5.0 - 15.0 MMOL/L 02/05/2024 10:14 AM [facility] OSMOLALITY (CALC) 298 MOSM/KG 024 10:14 AM [facility] Comment:REFERENCE RANGE NOT ESTABLISHED GFR ESTIMATE 5(L) >89 ML/MIN/1. 73 M2 02/05/2024 10:14 AM [facility] GFR NOTES GFR REFERENCE S: 02/05/2024 10:14 AM [facility] Comment: THE ESTIMATED GFR IS CALCULATED USING THE 2020 CKD-EPI EQUATION. THE FOLLOWING CATEGORIES FOR GRADING RENAL FUNCTION ARE RECOMMENDED BY THE INTERNATIONAL SOCIETY OF NEPHROLOGY (KDIGO 2012 CLINICAL PRACTICE GUIDELINE). G1,NORMAL OR HIGH: >89 ml/min/1.73 m2 G2,MILDLY DECREASED: 60-89 ml/min/1.73 m2 G3A,MILDLY TO MODERATELY DECREASED: 45-59 ml/min/1.73 m2 G3B,MODERATELY TO SEVERELY DECREASED: 30-44 ml/min/1.73 m2 G4,SEVERELY DECREASED: 15-29 ml/min/1.73 m2 G5,KIDNEY FAILURE: <15 ml/min/1.73 m2 02/05/2024 9:40 AM ELECTRONIC BENCH TECHNICIAN us Jr Cornell DO LABORATORY Final Re sult [facility] [address] [place] [address], * (ABNORMAL) CBC W/DIFF AUTOMATED (02/05/2024 9:40 AM ELECTRONIC BENCH TECHNICIAN) WBC 8.53 4.00 - 10.80 x10'3/uL 02/05/2024 9:50 AM ELECTRONIC BENCH TECHNICIAN [facility] RBC 3.42(L) 4.10 - 5.40 x10'6/uL 02/05/2024 9:50 AM ELECTRONIC BENCH TECHNICIAN [facility] HGB 11.7(L) 12.0 - 16.0 G/DL 02/05/2024 9:50 AM ELECTRONIC BENCH TECHNICIAN [facility] HCT 37.0 36.0 - 47.0 % 02/05/2024 9:50 AM ELECTRONIC BENCH TECHNICIAN [facility] MCV 108.2(H) 78.0 - 100.0 FL 02/05/2024 9:50 AM ELECTRONIC BENCH TECHNICIAN [facility] MCH 34.2(H) 27.0 - 31.0 PG 02/05/2024 9:50 AM ELECTRONIC BENCH TECHNICIAN [facility] MCHC 31.6(L) 33.0 - 36.0 G/DL 02/05/2024 9:50 AM ELECTRONIC BENCH TECHNICIAN [facility] RDW 13.2 11.5 - 14.5 % 02/05/2024 9:50 AM [facility] PLT 186 150 - 350 x10'3/uL 02/05/2024 9:50 AM [facility] MPV 10.1 7.4 - 10.4 FL 02/05/2024 9:50 AM [facility] CBC COMMENT NORMAL REFERENCE RANGE NOT ESTABLISHED FOR THE PROPORTIONAL LEUKOCYTE DIFFERENTIAL. 02/05/2024 9:50 AM [facility] NEUTROPHILS % 74.7 % 02/05/2024 9:50 AM [facility] LYMPHOCYTES % 14.3 % 02/05/2024 9:50 AM [facility] MONOCYTES % 7.3 % 02/05/2024 9:50 AM [facility] EOSINOPHILS % 2.8 % 02/05/2024 9:50 AM [facility] BASOPHILS % 0.7 % 02/05/2024 9:50 AM [facility] IMMATURE GRANS % 0.2 % 02/05/20 9:50 AM [facility] NRBC % 0.0 % 02/05/2024 9:50 AM [facility] ABS. NEUTROPHILS 6.37 1.60 - 8.30 x10'3/uL 02/05/2024 9:50 AM [facility] ABS. LYMPHOCYTES 1.22 0.80 - 4.70 x10'3/uL 02/05/2024 9:50 AM [facility] ABS. MONOCYTES 0.62 0.00 - 1.50 x10'3/uL 02/05/2024 9:50 AM [facility] ABS. EOSINOPHILS 0.24 0.00 - 0.40 x10'3/uL 02/05/2024 9:50 AM [facility] ABS. BASOPHILS 0.06 0.00 - 0.20 x10'3/uL 02/05/2024 9:50 AM [facility] ABS. IMMATURE GRANULOCYTES 0.02 0.00 - 0.03 x10'3/uL 02/05/2024 9:50 AM [facility] ABS. NUCLEATED RBC'S 0.00 0.00 - 0.01 x10'3/uL 02/05/2024 9:50 AM ELECTRONIC BENCH TECHNICIAN [facility] 02/05/2024 9:40 AM ELECTRONIC BENCH TECHNICIAN Jr Cornell DO LABORATORY Final Re sult [facility] [address] [place] [address], documented in this encounter Visit Diagnoses Diagnosis Rib pain on right side- Primary Chest pain, unspecified ESRD on dialysis ([facility]) End stage renal disease Hyperkalemia Hyperpotassemia Rib fracture Closed fracture of rib(s), unspecified documented in this encounter Administered Medications Inactive Administered Medications - up to 3 most recent administrations Medication Order MAR Action Action Date Dose Rate Site fentaNYL (SUBLIMAZE) injection 25 mcg 25 mcg, Intravenous, Once, 1 dose, On Sun02/05/24 at 0945, If intravenous (IV) route has been ordered, give over 1-2 minutes. Given 02/05/2024 10:02 AM ELECTRONIC BENCH TECHNICIAN 25 mcg lidocaine 4 % patch 1 patch 1 patch, Transdermal, Administer over 12 Hours, Once, 1 dose, On Sun02/05/24 at 1045 Patch Applied 02/05/2024 10:55 AM ELECTRONIC BENCH TECHNICIAN 1 patch Fla nk documented in this encounter Active and Recently Administered Medications Times are shown in ELECTRONIC BENCH TECHNICIAN. Scheduled Medication Order 02/03/2024 02/04/2024 02/05/2024 fentaNYL (SUBLIMAZE) injection 25 mcg (COMPLETED) 25 mcg, Intravenous, Once, 1 dose, On Sun02/05/24 at 0945, If intravenous (IV) route has been ordered, give over 1-2 minutes. 1002 (Given - Provid er: Christy Sweeney RN) lidocaine 4 % patch 1 patch 1 patch, Transdermal, Administer over 12 Hours, Once, 1 dose, On Sun02/05/24 at 1045 1055 (Patch Applied - Provider: Christy Sweeney RN)1100 (Due: Patch Removed - Provider: Automatic Discharge Provider - Comment: Time automatically adjusted from order being discontinued) documented in this encounter Care Teams Cosmetic Sales Relationship Specialty Start Date End Date Jasson Cueva MD [address] [place] [phone] PCP - General FAMILY PRACTICE 11/03/18 Huber Milligan MD [address] [place] [phone] Consulting Physician Vascular Neurology 04/30/19 Norm Hopkins MD [address] [place] [address] Consulting Physician CLINICAL CARDIAC ELECTROPHYSIOLOGY 04/30/19 documented as of this encounter
--- OUTSIDE RECORDS SUMMARY | 2024-03-19 18:37 | XMS_ITS | Encounter Summary ---
Author Organization [facility] Address [address] [place] [address]. [place], [place] [id number] [place] [id number] Care Team Providers Care Industrial Maintenance Mechanic Name Role Phone Jasson Cueva MD Primary Care Provider [phone] Huber Milligan MD Unavailable [phone] Norm Hopkins MD Unavailable [phone] Encounter Details Date Type Department Care Team (Late st Contact Info) Description 05/25/2023 Scan [facility] [address] [place] [address] Scanned, Doc Cikda Social History Tobacco Use Types Packs/Day Years [...] often do you attend chur ch or methodist services? Never 12/20/2022 Do you belong to any clubs o r organizations such as gnosticism groups, unions, fraternal or athletic groups, or [...] and heating? Not hard at all 12/20/2022 [facility] - Occupational Stress [...] place to sleep or slept in a usp (including now)? No 12/20/2022 Comments No Sex and Gender Information Value Date Recorded Sex Assigned at Not on file Legal 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 LAND EXAMIN[employer] Gender Identity Not on file Sexual Orientation [...] upon discharge from hospital General Sara Evans, RN Safety ? Patient/family will have appropriate support at home upon discharge Lifestyle Dannielle Soto RN documented as of this encounter Visit Diagnoses Not on filedocumented in this encounter Care Teams Industrial Maintenance Mechanic Relationship Specialty Start Date End Date Jasson Cueva MD [address] [place] [phone] PCP - General FAMILY PRACTICE 11/03/18 Huber Milligan MD [address] [place] [phone] Consulting Physician Vascular Neurology 04/30/19 Norm Hopkins MD [address] [place] [address] Consulting Physician CLINICAL CARDIAC ELECTROPHYSIOLOGY 04/30/19 documented as of this encounter
--- OUTSIDE RECORDS SUMMARY | 2024-03-19 18:37 | XMS_ITS | Clinical Summary ---
Author Organization [facility] Address [address] [place] [address]. [place], [place] [id number] [place] [id number] Care Team Providers Care Hydroponics Worker Name Role Phone Jasson Valdivia MD Primary Care Provider Huber Milligan MD Unavailable [phone] Norm Hopkins MD Unavailable [phone] Allergies No known active allergies Medications * This document contains information received from the source organization and may not represent a complete record from that organization. aspirin EC 81 MG tablet Take 1 tablet (81 mg total) by mouth daily. Active vitamin D3, cholecalciferol, 5000 UNITS capsule Take 1 capsule (125 mcg total) by mouth daily. Active amLODIPine 5 MG tablet 1 tablet (5 mg total) daily. 1 Active metoprolol succinate ER (TOPROL-XL) 25 MG 24 hr tablet Take 1 tablet (25 mg total) by mouth daily for 30 days. 30 tablet 3 Active furosemide (LASIX) 20 MG tabletIndication s:on non dialysis days Take 2 tablets (40 mg total) by mouth. Indications: on non dialysis days Active acetaminophen (TYLENOL) 325 MG tablet Take 2 tablets (650 mg total) by mouth every 4 (four) hours as needed for Pain. Active gabapentin (NEURONTIN) 100 MG capsule Take 1 capsule (100 mg total) by mouth 3 (three) times daily. 3 Active lidocaine 4 % patch Place 1 patch onto the skin daily. Remove & Discard patch within 12 hours or as directed by MD Paredes patch 4 Active HYDROcodone-acet aminophen (NORCO) 5-325 MG tabletIndication s:Acute Pain < 7 Day Supply Take 1 tablet by mouth every 6 (six) hours as needed. Indications: Acute Pain < 7 Day Supply 15 tablet 4 Active ipratropium-albu terol (DUONEB) 0.5-2.5 (3) MG/3ML Solution Take 3 mLs by nebulization every 6 (six) hours as needed (cough, wheeze). 360 mL 4 Active NEBULIZER SUPPLY, DME,Indications: COPD exacerbation ([facility]) 1 Package by Other route as needed (Shortness of Breath; copd). 1 Package 4 Active Active Problems Problem Noted Date Diagnosed Date HLD (hyperlipidemia) 01/17/2023 ESRD (end stage renal disease) ([facility]) 01/08/2023 Acute renal failure superimp osed on stage 4 chronic kidney disease, unspecified acute renal failure type ([facility]) 12/20/2022 Acute renal failure superimposed on chronic kidn ey disease 12/20/2022 Citrobacter infection 04/12/2021 Primary hypertension 04/11/2021 Acute renal failure superimp osed on stage 3 chronic kidney disease ([facility]) 04/10/2021 CHF exacerbation ([facility]) 01/12/2021 Unstable angina ([facility]) 01/12/2021 Urinary tract infection 10/18/2020 UTI (urinary tract infection) 12/16/2019 Status post placement of implantable loop record er 12/15/2019 Ischemic stroke ([facility]) 08/27/2019 Aftercare following right sh oulder joint replacement surgery 12/06/2018 Closed fracture of right proximal humerus 2018 Resolved Problems Problem Noted Date Diagnosed Date Resolved Date MOIRA (acute kidney injury) 12/21/2021 Hypernatremia 04/11/2021 04/12/2021 Displaced fracture of proxim al end of right humerus 11/06/2018 11/27/2018 Encounters Date Type Department Care Team Description 02/07/2024 10:40 AM [facility]ATE - 02/07/2024 1:11 PM [facility] [address] [place] [address] Violeta Tai MD Shortness Of Breath Discharge Disposition: Home or Self Care (Routine Discharge) 02/07/2024 Travel 02/05/2024 9:13 AM FOUR[facility] MATE - 02/05/2024 11:00 AM [facility] [address] [place] [address] Jr Cornell, DO Rib Pain Discharge Disposition: Home or Self Care (Routine Discharge) 02/05/2024 Travel from Last 3 Months Immunizations Name Administration Dates Next Due Fluzone 6 Months+ Quad (0.5 mL Prefilled Syringe) 01/09/2023(Deferred: Patient/family declined),12/22/2021(Deferred: Patient/family declined) Fluzone High Dose - >Age 65 (Prefilled Syringe) 12/17/2022,12/29/2015 Influenza (Generic) 12/17/2021 Influenza Adult (Generic) 12/05/2021 MODERNA COVID-19 (12+) MRNA, LNP-S, PF, 100 MCG/ 0.5 ML DOSE 06/18/2020,05/21/2020 Tdap (Generic) 06/21/2014 Family History Medical History Relation Comments Heart Attack Mother Relation Status Comments Father Mother Social History Tobacco Use Types Packs/Day Years [...] often do you attend chur ch or sabianist services? Never 12/20/2022 Do you belong to any clubs o r organizations such as confucianism groups, unions, fraternal or athletic groups, or [...] and heating? Not hard at all 12/20/2022 [facility] - Occupational Stress [...] place to sleep or slept in a alf (including now)? No 12/20/2022 Comments No Sex and Gender Information Value Date Recorded Sex Assigned at Not on file Legal 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 FOURTH MATE Gender Identity Not on file Sexual Orientation Not on file Last Filed Vital Signs Vital Sign Reading Time Taken Comments Blood Pressure 80/71 02/07/2024 12:00 PM FOUR[facility] MATE Pulse 80 02/07/2024 12:45 PM FOURTH MATE Temperature 36.1 ??C (97 ??F) 02/07/2024 10:48 AM FOURTH MATE Respiratory Rate 18 02/07/2024 12:45 PM FOURTH MATE Oxygen Saturation 93% 02/07/2024 12:45 PM FOURTH MATE Inhaled Oxygen Concentration - - Weight 81.6 kg (180 lb) 02/07/2024 10:48 AM FOURTH MATE Height 170.2 cm (5' 7 ) 02/07/2024 10:48 AM FOURTH MATE Body Mass Index 28.19 02/07/2024 10:48 AM FOURTH MATE Plan of Treatment Health Maintenance Due Date Last Done Comments Colorectal Cancer Screening Colonoscopy (10 Years) 1950 Zoster Vaccines (1 of 2) 08/23/2001 RSV Immunization or 60+ Years (1 - Risk 60-74 years 1-dose series) 2011 Annual Medicare Wellness Visit 08/23/2016 Dexa Scan (General) 08/23/2016 ASCVD LDL 01/13/2022 01/13/2021 COVID-19 Vaccine ( season) 2023 06/18/2020, 05/21/2020 Influenza Adult (#1) 2023 12/17/2022, 12/17/2021, 12/05/2021, Additional history exists DTaP, Tdap and Td Vaccines (2 - Td or Tdap) 06/21/2024 06/21/2014 Mammogram Screening 10/02/2024 10/02/2022, 03/06/2022, 02/20/2022 Pneumococcal Vaccine: 65+ Years Completed 01/15/2023 Hepatitis C Completed 02/28/2023, 02/28/2023 Meningococcal Vaccine Aged Out No galina daisha eligible based on patient's age to complete this topic RSV Immunizations Under 20 Months Aged Out No longer eligible based on patient's age to complete this topic Goals Goal Patient Goal Type Associated Problems Recent Progress Patient-Stated? Author Patient will return to prior living situation and remain independent in ADLs upon discharge from hospital General No Sara Lopez RN Safety ? Patient/family will have appropriate support at home upon discharge Lifestyle Dannielle Soto RN Medical Devices Implanted Type Area Putter In Device Identifier Shelf Expiration Date Model / Serial / Lot Medtronc Reveal Linq-09/05/2019 Implanted:08/17 by Norm Hopkins MD (Quantity not on file) Implantable Loop Recorder [employer] 01/31/2020 LNQ11 / [id number] / Metaglene Depuy Delta Xtend - [id number] Implanted:Qty: 1 on 11/25/2018 by Moises Christianson MD at [facility] Right: Shoulder DEPUY 08/17/2023 [id number] / / [id number] Humeral Standard Delta Xtend Depuy Dia38/+6 - [id number] Implanted:Qty: 1 on 11/25/2018 by Moises Christianson MD at [facility] Right: Shoulder DEPUY 04/18/2023 [id number] / / [id number] Screw Locking Depuy Delta Xtend Lg 36mm - [id number] Implanted:Qty: 1 on 11/25/2018 by Moises Christianson MD at [facility] Right: Shoulder DEPUY 07/17/2023 [id number] / / [id number] Screw Locking Depuy Delta Xtend Lg 30mm - [id number] Implanted:Qty: 1 on 11/25/2018 by Moises Christianson MD at [facility] Right: Shoulder DEPUY 06/17/2023 [id number] / / [id number] Glenosphere Eccentric Depuy 38mm - [id number] Implanted:Qty: 1 on 11/25/2018 by Moises Christianson MD at [facility] Right: Shoulder DEPUY 06/17/2023 [id number] / / [id number] Screw Non Locking Depuy Delta Xtend Lg 18mm - [id number] Implanted:Qty: 1 on 11/25/2018 by Moises Christianson MD at [facility] Right: Shoulder DEPUY 07/17/2023 [id number] / / [id number] Screw Non Locking Depuy Delta Xtend Lg 18mm - [id number] Implanted:Qty: 1 on 11/25/2018 by Moises Christianson MD at [facility] Right: Shoulder DEPUY 07/17/2023 [id number] / / [id number] Stem Humeral 120mm 12mm Modular Global Unite Porocoat Standard Shoulder Sterile Platform Arthroplasty System - [id number] Implanted:Qty: 1 on 11/25/2018 by Moises Christianson MD at [facility] Right: Shoulder DEPUY 05/16/2028 [id number] / / [id number] Global Unite Reverse Fx Epi Center Porocoat Implanted:Qty: 1 on 11/25/2018 by Moises Christianson MD at [facility] Right: Shoulder 03/18/2028 / / [id number] Cement Simplex Hv W/Gentamicin - [id number] Implanted:Qty: 1 on 11/25/2018 by Moises Christianson MD at [facility] Right: Shoulder [employer] 04/18/2020 [id number] / / [id number] Procedures Procedure Name Priority Date/Time Associated Diagnosis Comments CT CHEST WO CON STAT 02/07/2024 11:26 AM FOUR[facility] MATE CULTURE, BACTERIA, BLOOD STAT 02/07/2024 11:15 AM FOURTH MATE PRO-BRAIN NATRIURETIC PEPTIDE STAT 02/07/2024 11:05 AM FOURTH MATE MAGNESIUM STAT 02/07/2024 11:05 AM FOURTH MATE TROPONIN, QUANT STAT 02/07/2024 11:05 AM FOURTH MATE LACTIC ACID W REFLEX (SEPSIS) STAT 02/07/2024 11:05 AM FOUR[facility] MATE BLOOD GAS, VENOUS STAT 02/07/2024 11: 05 AM FOURTH MATE COMPREHENSIVE METABOLIC PANEL STAT 02/07/2024 11:05 AM FOURTH MATE CBC W/DIFF AUTOMATED STAT 02/07/2024 11:05 AM FOURTH MATE ECG 12-LEAD Routine 02/07/2024 10:45 AM FOURTH MATE ECG 12-LEAD Routine 02/05/2024 10:26 AM FOURTH MATE XR CHEST PA+LAT STAT 02/05/2024 10:02 AM FOURTH MATE PRO-BRAIN NATRIURETIC PEPTIDE STAT 02/05/2024 9:40 AM FOURTH MATE TROPONIN, QUANT STAT 02/05/2024 9:40 AM FOUR[facility] MATE COMPREHENSIVE METABOLIC PANEL STAT 02/05/2024 9:40 AM FOURTH MATE CBC W/DIFF AUTOMATED STAT 02/05/2024 9:40 AM FOURTH MATE MG DIAG W XAVIER BILAT DIGI Routine 10/02/2022 10:19 AM CDT Abnormal mammogram of both breasts LIPID PANEL Routine 01/13/2021 3:31 AM CDT from Last 3 Months or Most Recently Relevant to Health Maintenance Results * CT CHEST WO CON (02/07/2024 11:26 AM FOURTH MATE) Anatomical Region Laterality Modality Chest Computed Tomogra phy 02/07/2024 12:1 2 PM [facility] MATE Impressions 02/07/2024 12:31 PM FOURTH MATE IMPRESSION: 1. Acute nondisplaced right ninth and tenth posterolateral rib fractures. 2. No significant acute intrathoracic process identified. 3. Coronary artery disease. 4. Centrilobular emphysema. 5. Additional chronic/nonurgent findings as described. Ordered By: VIOLETA TAI Interpreted By: Jacky Saul MD, 02/07/2024 12:12 PM Narrative 02/07/2024 12:31 PM FOUR[facility] MATE [address] [place] [address] Examination: CT of the chest without contrast. Exam time: 1129 hours. Clinical history: Cough. Dyspnea. Fell two days ago. Right-sided pain. Normal WBC count. Elevated BNP. History of renal failure, on dialysis. Former smoker. Comparison: 02/27/2023 ([facility]). Technique: Spiral scanning was performed through the chest without contrast. Sagittal and coronal reconstructions were performed from the data set. ??A dose lowering technique was used for this procedure, which may include, but is not limited to, dose reduction techniques, automated exposure control, the use of iterative reconstruction and ALARA/Image Gently techniques. Findings: There is some image degradation due to respiratory motion. Left jugular dialysis catheter remains in place with the distal tip now terminating in the right atrium. Calcific coronary artery disease, mitral annular calcification and atherosclerotic calcification of the aorta and arch vessels again evident. The heart and great vessels are otherwise unremarkable for the noncontrast technique. No hilar or mediastinal adenopathy is identified. There is a small amount of retained secretions in the trachea and main bronchi. Changes of centrilobular emphysema are again evident. Chronic scarring or subsegmental atelectasis in the middle and right lower lobes again evident. There is now minimal subsegmental atelectasis versus scarring in the inferior left upper lobe abutting the fissure. Allowing for the respiratory motion, the lungs are otherwise clear. There is no pleural effusion or pneumothorax. Old healed bilateral rib fractures again evident. There has been interval healing of the previously noted acute right seventh rib fracture. There are acute nondisplaced fractures of the right ninth and tenth ribs posterolaterally. No other acute bony injury is identified. The included sections through the upper abdomen show no acute process. Bilateral renal atrophy, left greater than right, concordant with the history, is again evident. Cholelithiasis and bilateral nephrolithiasis again evident. Procedure Note Jacky Saul MD - 02/07/2024 [facility] [address] [place] [address] Examination: CT of the chest without contrast. Exam time: 1129 hours. Clinical history: Cough. Dyspnea. Fell two days ago. Right-sided pain.Normal WBC count. Elevated BNP. History of renal failure, on dialysis.Former smoker. Comparison: 02/27/2023 ([facility]). Technique: Spiral scanning was performed through the chest withoutcontrast. Sagittal and coronal reconstructions were performed from thedata set. A dose lowering technique was used for this procedure, whichmay include, but is not limited to, dose reduction techniques, automatedexposure control, the use of iterative reconstruction and ALARA/ImageGently techniques. Findings: There is some image degradation due to respiratory motion. Leftjugular dialysis catheter remains in place with the distal tip nowterminating in the right atrium. Calcific coronary artery disease, mitralannular calcification and atherosclerotic calcification of the aorta andarch vessels again evident. The heart and great vessels are otherwiseunremarkable for the noncontrast technique. No hilar or mediastinaladenopathy is identified. There is a small amount of retained secretionsin the trachea and main bronchi. Changes of centrilobular emphysema areagain evident. Chronic scarring or subsegmental atelectasis in the middleand right lower lobes again evident. There is now minimal subsegmentalatelectasis versus scarring in the inferior left upper lobe abutting thefissure. Allowing for the respiratory motion, the lungs are otherwiseclear. There is no pleural effusion or pneumothorax. Old healed bilateralrib fractures again evident. There has been interval healing of thepreviously noted acute right seventh rib fracture. There are acutenondisplaced fractures of the right ninth and tenth ribs posterolaterally.No other acute bony injury is identified. The included sections throughthe upper abdomen show no acute process. Bilateral renal atrophy, leftgreater than right, concordant with the history, is again evident.Cholelithiasis and bilateral nephrolithiasis again evident. IMPRESSION: 1. Acute nondisplaced right ninth and tenth posterolateral ribfractures. 2. No significant acute intrathoracic process identified. 3. Coronary artery disease. 4. Centrilobular emphysema. 5. Additional chronic/nonurgent findings as described. Ordered By: VIOLETA TAI Interpreted By: Jacky Saul MD, 02/07/2024 12:12 PM Violeta Tai MD CT Final Resul t * BLOOD CULTURE #1 (02/07/2024 11:15 AM FOURTH MATE) SPEC DESCRIPTION BLOOD 02/07/2024 10:56 AM FOURTH MATE [facility] SPECIAL REQUESTS NO SPECIAL REQUEST 02/07/2024 10:56 AM FOURTH MATE [facility] CULTURE RESULT NO GROWTH 5 DAYS 02/12/2024 10:56 AM FOURTH MATE [facility] BLOOD SPECIMEN OBTAINED FOR BLOOD CULTURE / Unknown 02/07/2024 11:15 AM FOURTH MATE 02/07/2024 11:20 AM FOURTH MATE Violeta Tai MD MICROBIOLOGY - GENERAL ORDE [facility] Final Result [facility] [place] [address], * LACTIC ACID W REFLEX (SEPSIS) (02/07/2024 11:05 AM FOURTH MATE) LACTIC ACID VENOUS 2.0 0.4 - 2.0 MMOL/L 02/07/2024 11:45 AM FOURTH MATE [facility] 02/07/2024 11:0 5 AM FOURTH MATE Violeta Tai MD LABORATORY Final Resul t Performing Organization Address [facility] Co de Phone Number [facility] [address] [place] [phone], * (ABNORMAL) PRO-BRAIN NATRIURETIC PEPTIDE (02/07/2024 11:05 AM FOURTH MATE) Only the most recent of2 resultswithin the time period is included. PRO-B TYPE NATRIURETIC PEPTIDE 949(H) <125 PG/ML 02/07/2024 12:13 PM [facility] MATE [facility] Comment: CUT POINTS ESTABLISHED BY INTERNATIONAL [...] OF 89% AND 72% FOR ACUTE CHF. 02/07/2024 11:0 5 AM FOURTH MATE us Violeta Tai MD LABORATORY Final Resul t Performing Organization Address [facility] de Phone Number [facility] [address] [place] [phone], * (ABNORMAL) Blood gas, venous (02/07/2024 11:05 AM FOURTH MATE) PH VENOUS 7.50(H) 7.32 - 7.43 02/07/2024 11:24 AM FOUR[facility] MATE [facility] PCO2 VENOUS 47.0 MMHG 02/07/2024 11:24 AM FOURTH MATE [facility] Comment:NO REFERENCE RANGE H BEEN ESTABLISHED PO2 VENOUS <30.0 MM HG 02/07/2024 11:24 AM FOURTH MATE [facility] Comment:NO REFERENCE RANGE H BEEN ESTABLISHED TOTAL CO2 VENOUS 38.1(H) 22.0 - 26.0 MMOL/L 02/07/2024 11:24 AM [facility] BASE EXCESS VENOUS 11.8 MMOL/L 02/07/2024 11:24 AM [facility] Comment:NO REFERENCE RANGE H BEEN ESTABLISHED O2 SAT VENOUS NOT CALCULATED % 024 11:24 AM [facility] Comment:NO REFERENCE RANGE H BEEN ESTABLISHED BICARB VENOUS 36.7(H) 22.0 - 29.0 MMOL/L 02/07/2024 11:24 AM [facility] O2 ADMIN VENOUS ROOM AIR 11:20 AM [facility] 02/07/2024 11:0 5 AM FOURTH MATE us Violeta Tai MD LABORATORY Final Resul t [facility] [address] [place] [address], * (ABNORMAL) COMPREHENSIVE METABOLIC PANEL (02/07/2024 11:05 AM FOURTH MATE) Only the most recent of2 resultswithin the time period is included. SODIUM S/P/B 138 136 - 145 MMOL/L 02/07/2024 12:13 PM [facility] POTASSIUM S/P/B 4.6 3.5 - 5.1 MMOL/L 02/07/2024 12:13 PM [facility] Comment:MILD HEMOLYSIS, RESU LT MAY BE AFFECTED. CHLORIDE S/P/B 98 98 - 107 MMOL/L 02/07/2024 12:13 PM [facility] CO2 29.3 21.0 - 32.0 MMOL/L 02/07/2024 12:13 PM [facility] GLUCOSE 114(H) 70 - 99 MG/DL 02/07/2024 12:13 PM [facility] Comment: FASTING GLUCOSE 100 TO 125 MG/DL IS CONSISTENT WITH IMPAIRED FASTING GLUCOSE. FASTING GLUCOSE >125 MG/DL IS CONSISTENT WITH DIABETES. RANDOM GLUCOSE >200 MG/DL WITH HYPERGLYCEMIC SYMPTOMS IS CONSISTENT WITH DIABETES. PER ADA GUIDELINES BUN 18 6 - 24 MG/DL 02/07/2024 12:13 PM [facility] CREATININE S/P/B 3.66(H) 0.55 - 1.02 MG/DL 02/07/2024 12:13 PM [facility] CALCIUM S/P/B 9.1 8.4 - 10.5 MG/DL 02/07/2024 12:13 PM [facility] BILIRUBIN TOTAL S/P/B 0.8 0.2 - 1.0 MG/DL 02/07/2024 12:13 PM [facility] Comment: THIS ASSAY IS NOT RECOMMENDED FOR PATIENTS UNDERGOING TREATMENT WITH ELTROMBOPAG DUE TO THE POTENTIAL FOR FALSELY ELEVATED RESULTS. ALKALINE PHOSPHATASE S/P/B 69 55 - 142 U/L 02/07/2024 12:13 PM [facility] AST 19 15 - 37 U/L 02/07/2024 12:13 PM [facility] Comment:MILD HEMOLYSIS, RESU LT MAY BE AFFECTED. ALT 15 14 - 59 U/L 02/07/2024 12:13 PM [facility] TOTAL PROTEIN S/P/B 7.7 6.4 - 8.2 G/DL 02/07/2024 12:13 PM [facility] ALBUMIN S/P/B 3.8 3.4 - 5.0 G/DL 02/07/2024 12:13 PM [facility] ANION GAP 10.7 5.0 - 15.0 MMOL/L 02/07/2024 12:13 PM [facility] OSMOLALITY (CALC) 289 MOSM/KG 024 12:13 PM [facility] Comment:REFERENCE RANGE NOT ESTABLISHED GFR ESTIMATE 13(L) >89 ML/MIN/1. 73 M2 02/07/2024 12:13 PM [facility] GFR NOTES GFR REFERENCE S: 02/07/2024 12:13 PM [facility] Comment: THE ESTIMATED GFR IS CALCULATED [...] ml/min/1.73 m2 G5,KIDNEY FAILURE: <15 ml/min/1.73 m2 02/07/2024 11:0 5 AM FOUR[facility] MATE us Violeta Tai MD LABORATORY Final Resul t [facility] [address] [place] [address], * (ABNORMAL) CBC W/DIFF AUTOMATED (02/07/2024 11:05 AM FOURTH MATE) Only the most recent of2 resultswithin the time period is included. WBC 9.88 4.00 - 10.80 x10'3/uL 02/07/2024 11:32 AM FOURTH MATE [facility] RBC 3.61(L) 4.10 - 5.40 x10'6/uL 02/07/2024 11:32 AM FOURTH MATE [facility] HGB 12.4 12.0 - 16.0 G/DL 02/07/2024 11:32 AM FOURTH MATE [facility] HCT 37.2 36.0 - 47.0 % 02/07/2024 11:32 AM FOURTH MATE [facility] MCV 103.0(H) 78.0 - 100.0 FL 02/07/2024 11:32 AM FOURTH MATE [facility] MCH 34.3(H) 27.0 - 31.0 PG 02/07/2024 11:32 AM FOURTH MATE [facility] MCHC 33.3 33.0 - 36.0 G/DL 02/07/2024 11:32 AM [facility] RDW 12.9 11.5 - 14.5 % 02/07/2024 11:32 AM [facility] PLT 187 150 - 350 x10'3/uL 02/07/2024 11:32 AM [facility] MPV 10.1 7.4 - 10.4 FL 02/07/2024 11:32 AM [facility] CBC COMMENT NORMAL REFERENCE RANGE NOT ESTABLISHED FOR THE PROPORTIONAL LEUKOCYTE DIFFERENTIAL. 02/07/2024 11:32 AM [facility] NEUTROPHILS % 70.4 % 02/07/2024 11:32 AM [facility] LYMPHOCYTES % 15.8 % 02/07/2024 11:32 AM [facility] MONOCYTES % 11.5 % 02/07/2024 11:32 AM [facility] EOSINOPHILS % 1.5 % 02/07/2024 11:32 AM [facility] BASOPHILS % 0.6 % 02/07/2024 11:32 AM [facility] IMMATURE GRANS % 0.2 % 02/07/20 11:32 AM [facility] NRBC % 0.0 % 02/07/2024 11:32 AM [facility] ABS. NEUTROPHILS 6.95 1.60 - 8.30 x10'3/uL 02/07/2024 11:32 AM [facility] ABS. LYMPHOCYTES 1.56 0.80 - 4.70 x10'3/uL 02/07/2024 11:32 AM [facility] ABS. MONOCYTES 1.14 0.00 - 1.50 x10'3/uL 02/07/2024 11:32 AM [facility] ABS. EOSINOPHILS 0.15 0.00 - 0.40 x10'3/uL 02/07/2024 11:32 AM [facility] ABS. BASOPHILS 0.06 0.00 - 0.20 x10'3/uL 02/07/2024 11:32 AM [facility] ABS. IMMATURE GRANULOCYTES 0.02 0.00 - 0.03 x10'3/uL 02/07/2024 11:32 AM [facility] [facility]. NUCLEATED RBC'S 0.00 0.00 - 0.01 x10'3/uL 02/07/2024 11:32 AM FOURTH MATE [facility] 02/07/2024 11:0 5 AM FOURTH MATE us Violeta Tai MD LABORATORY Final Resul t Performing Organization Address City/[facility]/ZIP Co de Phone Number [facility] [address] [place] [address], * TROPONIN, QUANT (02/07/2024 11:05 AM FOURTH MATE) Only the most recent of2 resultswithin the time period is included. TROPONIN I HIGH SENSITIVITY 14 0 - 51 ng/L 02/07/2024 12:13 PM FOURTH MATE [facility] 02/07/2024 11:0 5 AM FOURTH MATE us Violeta Tai MD LABORATORY Final Resul t Performing Organization Address [facility] Co de Phone Number [facility] [address] [place] [address], * MAGNESIUM (02/07/2024 11:05 AM FOURTH MATE) MAGNESIUM 2.1 1.8 - 2.4 MG/DL 02/07/2024 12:13 PM FOURTH MATE [facility] 02/07/2024 11:0 5 AM FOURTH MATE us Violeta Tai MD LABORATORY Final Resul t Performing Organization Address City/[facility] Co de Phone Number [facility] [address] [place] [address], * ECG 12 lead (02/07/2024 10:45 AM FOURTH MATE) Only the most recent of2 resultswithin the time period is included. 02/07/2024 10:4 5 AM FOURTH MATE Narrative [facility] - 02/07/2024 3:42 PM FOURTH MATE ? [facility] ?[address] [place], [place] ??[address] ? Test Date: ?2024-02-07 Pat Name: ? ALAYNA LAWRENCE ?Department: ?? 3 ? Room: ? EXAM 101 Gender: ? Female ? Preparer Samples And Repairs: ?? : ?1950 ? Requested By: VIOLETA ALEZEESHAN Order Number: [id number] ? Reading MD: ?? Andrzej Fuentes ? Measurements Intervals ?Pioneer ? Rate: ? 95 ? P: ?35 MA: ? 128 ?QRS: ?-78 QRSD: ? 97 ? T: ?65 QT: ? 365 ? QTc: ?460 ? 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 Mild platelike subsegmental atelectasis in the right lower lobe. Lungs otherwise clear. 2. Interval loop recorder removal. 3. Additional stable findings as described. Ordered By: JR CORNELL Interpreted By: Jacky Saul MD, 02/05/2024 10:08 AM Narrative 02/05/2024 10:15 AM FOURTH MATE [address] [place] [address] Examination: Two-view chest Exam time: 0937 hours. [...] Procedure Note Jacky Saul MD - 02/05/[address] [place] [address] Examination: Two-view chest Exam time: 0937 hours. [...] DO GENERAL IMAGING Final Re sult * MG DIAG W XAVIER BILAT DIGI (10/02/2022 10:19 AM CDT) Anatomical Region Laterality Modality Breast Bilateral Mammography, Rad iographic Imaging 10/02/2022 10:3 9 AM CDT Narrative 10/02/2022 10:47 AM CDT Examination: Bilateral digital diagnostic mammogram with CAD. [id number] Clinical history: Recommended surveillance of cysts. Comparison: 03/06/2022, 02/20/2022. Technique: Bilateral CC, MLO, true lateral and spot compression CC and MLO digital mammograms. The exam was interpreted with the use of a computer-aided detection (CAD) system. Additional 3-D Tomosynthesis images were acquired. Tissue density: ??The breast tissue is heterogeneously dense. Findings: There has been no suspicious change. The breasts again demonstrate mixed fat and moderately dense fibroglandular tissue. The denser tissues lie centrally. Benign-appearing calcification noted. Implanted loop recorder on the left is again evident. There is no architectural distortion or suspicious microcalcification. Sharply circumscribed mass on the right near the 3:00 position projecting approximately 4 cm deep to the nipple is redemonstrated and stable measuring approximately 10 mm. Sharply circumscribed masses on the left are redemonstrated and stable. One lies at the 12:30 position near the nipple axis projecting approximately 4.5 cm deep to the nipple and measuring approximately 9 mm. The second lies at the 3:00 position projecting approximately 6.5 cm deep to the nipple and measures approximately 7 mm. The exam is otherwise unremarkable. Examination: Bilateral breast ultrasound. Technique:Grayscale and color Doppler images. Findings: On the right, evaluation at the 3:00 position 1 cm from the nipple redemonstrates an 11 mm in greatest dimension simple cyst judged concordant with the mammographic finding. On the left, evaluation at the 1:00 position 1 cm from the nipple redemonstrates a 1 cm in greatest dimension benign complicated cyst concordant with the mammographic finding in this distribution. 6 mm in greatest dimension benign complicated cyst is redemonstrated at the 3:00 position 4 cm from the nipple and judged concordant with the mammographic finding in this distribution. Lyman appearing tissue architecture is otherwise demonstrated bilaterally. No other sonographically discrete finding is identified. No sonographically suspicious abnormality is identified. Based on these findings, routine mammographic follow-up in one year would now seem adequate. These findings were discussed with the patient. IMPRESSION: No mammographically or sonographically suspicious change since the previous exams. There are bilateral benign findings as described. Routine follow-up in one year would now seem adequate. Recommendation: 1: Routine screening mammogram ??Bilateral ?? in 1 Year Overall assessment: ACR BI-RADS Category 2 - Benign. Return for Routine Follow-Up: Yes Ordered By: JASSON VALDIVIA Interpreted By: Jacky Saul MD, 10/02/2022 10:39 AM us Jasson Valdivia MD MAMMO Final Resul t * (ABNORMAL) LIPID PANEL (01/13/2021 3:31 AM CDT) CHOLESTEROL 141 MG/DL 01/13/2021 7:36 AM CDT [facility] Comment:DESIRABLE: <200 TRIGLYCERIDES 135 MG/DL 01/13/2021 7:36 AM CDT [facility] Comment:<150 NORMAL HDL 45(L) >49 MG/DL 01/13/2021 7:36 AM CDT [facility] LDL (CALCULATED) 69 MG/DL 01/14/20 7:36 AM CDT [facility] Comment:<100 OPTIMAL VLDL CALCULATION 27 MG/DL 01/14/20 7:36 AM CDT [facility] Comment:REFERENCE RANGE NOT ESTABLISHED CHOL/HDL RATIO 3.1 01/13/2021 7:36 AM CDT [facility] Comment:REFERENCE RANGE NOT ESTABLISHED LDL/HDL 1.5 01/13/2021 7:36 AM CDT [facility] Comment:REFERENCE RANGE NOT ESTABLISHED NON HDL CHOLESTEROL 96 MG/DL 01/13/2021 7:36 AM CDT [facility] Comment:REFERENCE RANGE NOT ESTABLISHED 01/13/2021 3:31 AM CDT Mayra Nobles NP LABORATORY Final Result [facility] [address] [place] [address], [id number] from Last 3 Months or Most Recently Relevant to Health Maintenance Insurance MEDICARE MEDICARE * Guarantor: Alayna Lawrence Account Type Relation to Patient Date of Phone Billing Address Personal/Family Self 1950 [address] [place] [address] MEDICARE Advance Directives Documents on File Type Date Recorded 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 Expl anation Advance Directives and Living Will 04/29/2019 3:44 PM Refer to LESIA coronado regarding Advanced Directives Power of Water Pump Installer 04/29/2019 3:43 PM SEKOU Cobian-alyson Advance Directives and Living Will 01/10/2014 ADVANCE DIRECTIVE Advance Directives and Living Will 01/04/2014 ADVANCE DIRECTIVE * Full Code (Latest Code Status on File) Date Activated Date Inactivated Comments 01/08/2023 7:27 PM 01/09/2023 9:33 PM * Full Code Date Activated Date Inactivated Comments 12/20/2022 2:51 AM 01/06/2023 2:54 PM * Full Code Date Activated Date Inactivated Comments 12/21/2021 10:23 PM 12/22/2021 8:33 PM * Full Code Date Activated Date Inactivated Comments 04/10/2021 6:06 PM 04/13/2021 4:59 PM * Full Code Date Activated Date Inactivated Comments 01/12/2021 3:01 PM 01/14/2021 4:42 PM Healthcare Agents on File Name Relationship Healthcare Agent Anitrama abdi Sneed Health Care Agent Care Teams 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
--- OUTSIDE RECORDS SUMMARY | 2024-03-19 18:37 | XMS_ITS | Encounter Summary ---
Author Organization [facility] Address [address] [place] [address]. [place], [place] [address] [place] [id number] Care Team Providers Care Space Physicist Name Role Phone Jasson Cueva MD Primary Care Provider [phone] Huber Milligan MD Unavailable [phone] Norm Hopkins MD Unavailable [phone] Encounter Details Date Type Department Care Team (Late st Contact Info) Description 05/18/2023 Scan PENDING SALE TO [facility] [address] [place] [address] Scanned, Doc Cikda Social History Tobacco Use [...] often do you attend chur ch or anglican services? Never 12/20/2022 Do you belong to any clubs o r organizations such as anabaptist groups, unions, fraternal or athletic groups, or [...] and heating? 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
--- OUTSIDE RECORDS SUMMARY | 2024-03-19 18:37 | XMS_ITS | Clinical Summary ---
Author Organization Unknown Care Team Providers Care Wedding Transportation Driver Name Role Phone SHEA BELL, NIYA Unavailable Unavailable EARNESTINE REGISTERED NURSE, HARRISON Unavailable [facility] PHYSICAL THERAPIST, GLORIA Unavailabl e Unavailable GERARDO REGISTERED NURSE, PATIENCE Unavailable Unavailable BALAJI REGISTERED NURSE, TERENCE Unavailable Unavailable Payers Payer Name Policy Type Policy Number Effective Date Expira tion Date MEDICARE [place] - EPISODIC [id number] Problems Condition Name Condition Details Condition Category Status Onset Date Resolution Date Last Treatment Date Treating Clinician Comments UNSPECIFIED CHRONIC BRONCHITIS Active 2022-03 2 00:00: 00 CHRONIC RESPIRATORY FAILURE WITH HYPOXIA Active 03-19 00:00: 00 FRACTURE OF ONE RIB, RIGHT SIDE, SUBS FOR FX W ROUTN HEAL Active 03-19 00:00: 00 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 Active 03-19 00:00: 00 HEART FAILURE, UNSPECIFIED Active 03-19 00:00: 00 END STAGE RENAL DISEASE Active 03-19 00:00: 00 HEMIPLGA FOLLOWING CEREBRAL INFRC AFF RIGHT DOMINANT SIDE Active 03-19 00:00: 00 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 03-19 00:00: 00 UNSPECIFIED OSTEOARTHRIT IS, UNSPECIFIED SITE Active 03-19 00:00: 00 POLYNEUROPAT HY, UNSPECIFIED Active 03-19 00:00: 00 HYPERLIPIDEM IA, UNSPECIFIED Active 03-19 00:00: 00 DEPRESSION, UNSPECIFIED Active 03-19 00:00: 00 PERSONAL HISTORY OF NICOTINE DEPENDENCE Active 03-19 00:00: 00 DEPENDENCE ON RENAL DIALYSIS Active 03-19 00:00: 00 PRESENCE OF RIGHT ARTIFICIAL HIP JOINT Active 03-19 00:00: 00 PRESENCE OF LEFT ARTIFICIAL HIP JOINT Active 03-19 00:00: 00 PROBLEMS RELATED TO LIVING ALONE Active 03-19 00:00: 00 DEPENDENCE ON WHEELCHAIR Active 03-19 00:00: 00 FCI (CURRENT) USE OF ASPIRIN Active 03-19 00:00: 00 HISTORY OF FALLING Active 03-19 00:00: 00 Allergies, Adverse Reactions, Alerts Allergy Name Allergy Type Status Severity Reaction(s) Onset Date Inactive Date Treating Clinician Comments NO KNOWN ALLERGIES Propensity to adverse reactions Active 2022-03 15:38: 52 Medications Ordered Medication Name Filled Medication Name Start Date Stop Date Current Medication? Ordering Clinician Indication Dosage Frequency Signature (SIG) Comments Components amlodipine 10 mg tablet 11-10 00:00: 00 11-18 23:59 :00 No [id number] HIGH BLOOD PRESSURE 1 tablet ONCE DAILY 1 tablet ONCE DAILY (route: oral) Med Classific ation: Cardiovas cular Therapy Agents Aspirin Low Dose 81 mg tablet,racquel yed release 11-10 00:00: 00 05-14 23:59 :00 No [id number] HX OF CVA 1 tablet ONCE DAILY 1 tablet ONCE DAILY (route: oral) Med Classific ation: Hematolog ical Agents gabapentin 600 mg tablet 11-10 00:00: 00 12-29 23:59 :00 No [id number] NERVE PAIN 1 tablet ONCE DAILY 1 tablet ONCE DAILY (route: oral) Med Classific ation: Central Nervous System Agents metoprolol succinate ER 50 mg tablet,exte nded release 24 hr 11-10 00:00: 00 03-16 00:00 :00 No [id number] HIGH BLOOD PRESSURE 1 tablet ONCE DAILY 1 tablet ONCE DAILY (route: oral) Med Classific ation: Cardiovas cular Therapy Agents Vitamin D3 125 mcg (5,000 unit) tablet 11-10 00:00: 00 02-23 23:59 :00 No [id number] SUPPLEMENT 1 tablet ONCE DAILY 1 tablet ONCE DAILY (route: oral) Med Classific ation: Electroly te Balance-N utritiona l Products furosemide 20 mg tablet 11-18 00:00: 00 11-26 23:59 :00 No [id number] FLUID RETENTION 1 tablet ONCE DAILY 1 tablet ONCE DAILY (route: oral) Med Classific ation: Cardiovas cular Therapy Agents furosemide 20 mg tablet 11-29 00:00: 00 08-16 23:59 :00 No [id number] FLUID RETENTION 1 tablet DIRECTED 1 tablet DIRECTED (route: oral) Med Classific ation: Cardiovas cular Therapy Agents amlodipine 5 mg tablet 11-19 00:00: 00 02-23 23:59 :00 No [id number] HYPERTENSIO N 1 tablet ONCE DAILY 1 tablet ONCE DAILY (route: oral) Alternate Route: BY MOUTH. Med Classific ation: Cardiovas cular Therapy Agents gabapentin 600 mg tablet 12-13 00:00: 00 03-16 00:00 :00 No [id number] NERVE PAIN 1 tablet 3 TIMES DAILY 1 tablet 3 TIMES DAILY (route: oral) Alternate Route: BY MOUTH. Med Classific ation: Central Nervous System Agents albuterol sulfate HFA 90 mcg/actuati on aerosol inhaler 2020-03 00:00: 00 03-16 00:00 :00 No [id number] SHORTNESS OF BREATH 1-2 puff EVERY 4-6 HOURS PRN 1-2 puff EVERY 4-6 HOURS PRN (route: inhalation ) Med Classific ation: Respirato ry Therapy Agents albuterol sulfate 2.5 mg/3 mL (0.083 %) solution for nebulizatio n 2020-03 00:00: 00 03-16 00:00 :00 No [id number] WHEEZING 3 mL NEEDED 3 mL NEEDED (route: inhalation ) Med Classific ation: Respirato ry Therapy Agents arformotero l 15 mcg/2 mL solution for nebulizatio n 2020-03 00:00: 03-16 00:00 :00 No [id number] WHEEZING 2 mL 2 TIMES DAILY 2 mL 2 TIMES DAILY (route: inhalation ) Med Classific ation: Respirato ry Therapy Agents ipratropium bromide 0.02 % solution for inhalation 2020-03-08 00:00: 00 03-16 00:00 :00 No [id number] WHEEZING 2.5 mL 4 TIMES DAILY 2.5 mL 4 TIMES DAILY (route: inhalation ) Med Classific ation: Respirato ry Therapy Agents cephalexin 250 mg tablet 1-26 00:00: 00 04-20 23:59 :00 No [id number] UTI 1 tablet 2 TIMES DAILY 1 tablet 2 TIMES DAILY (route: oral) Med Classific ation: Anti-Infe ctive Agents furosemide 20 mg tablet 5-31 00:00: 00 02-23 23:59 :00 No [id number] EDEMA 1 tablet ONCE DAILY 1 tablet ONCE DAILY (route: oral) Alternate Route: BY MOUTH. Med Classific ation: Cardiovas cular Therapy Agents furosemide 20 mg tablet 8-23 00:00: 00 11-15 23:59 :00 No [id number] INCREASED EDEMA TO BILATERAL LOWER EXTREMITIES 2 tablet ONCE DAILY 2 tablet ONCE DAILY (route: oral) Alternate Route: BY MOUTH. Med Classific ation: Cardiovas cular Therapy Agents Lasix 20 mg tablet 9-07 00:00: 00 02-01 23:59 :00 No [id number] EDEMA 20 mg 3 TIMES DAILY 20 mg 3 TIMES DAILY (route: oral) Med Classific ation: Cardiovas cular Therapy Agents amoxicillin 875 mg-potassiu m clavulanate 125 mg tablet 2021-03 0-10 00:00: 00 12-31 23:59 :00 No [id number] UTI 1 tablet TWICE DAILY 1 tablet TWICE DAILY (route: oral) Med Classific ation: Anti-Infe ctive Agents furosemide 20 mg tablet 2021-03 0-05 00:00: 00 03-02 23:59 :00 No [id number] EDEMA 1 tablet ONCE DAILY 1 tablet ONCE DAILY (route: oral) Alternate Route: BY MOUTH. Med Classific ation: Cardiovas cular Therapy Agents gabapentin 100 mg capsule 2022-03 2-26 00:00: 00 02-23 23:59 :00 No [id number] PAIN 100 mg 3 TIMES DAILY 100 mg 3 TIMES DAILY (route: oral) Med Classific ation: Central Nervous System Agents hydrocodone 5 mg-acetamin ophen 325 mg tablet 2022-03 00:00: 00 02-23 23:59 :00 No [id number] PAIN 1 tablet EVERY 6 HOURS 1 tablet EVERY 6 HOURS (route: oral) Med Classific ation: Analgesic , Anti-infl ammatory or Antipyret ic Lidocaine Pain Relief 4 % topical patch 2022-03 00:00: 00 02-23 23:59 :00 No [id number] PAIN 1 adhesiv e patch, medicat ed ONCE DAILY 1 adhesive patch, medicated ONCE DAILY (route: topical) Med Classific ation: Dermatolo gical metoprolol succinate ER 25 mg tablet,exte nded release 24 hr 2022-03 00:00: 00 02-23 23:59 :00 No [id number] HTN 1 tablet ONCE DAILY 1 tablet ONCE DAILY (route: oral) Med Classific ation: Cardiovas cular Therapy Agents omeprazole 20 mg capsule,del ayed release 2022-03 00:00: 00 02-23 23:59 :00 No [id number] GERD 1 capsule ONCE DAILY 1 capsule ONCE DAILY (route: oral) Med Classific ation: Gastroint estinal Therapy Agents Aspirin Low Dose 81 mg tablet,racquel yed release 8-25 00:00: 00 02-23 23:59 :00 No [id number] HX OF CVA 1 tablet ONCE DAILY 1 tablet ONCE DAILY (route: oral) Med Classific ation: Hematolog ical Agents Immunizations Ordered Immunization Name Filled Immunization Name Date Status Comments Refusal Reason INFLUENZA, TIV (INACTIVATED) 2023-01-17 00:00:00 PNEUMOCOCCAL (PPV), PPV 2022-02-16 00:00:00 COVID-19 MONOVALENT, MRNA 2020-12-17 00:00:00 Vital Signs Vital Name Observation Time Observation Value Commen ts Temperature 2023-07-11 10:08:00.000 97.2 [degF] Temperature 2023-06-18 11:47:00.000 97.2 [degF] Temperature 2023-06-14 16:10:00.000 97.7 [degF] Temperature 2023-06-04 13:48:00.000 97.5 [degF] Temperature 2023-05-30 09:26:00.000 98 [degF] Temperature 2023-05-28 13:30:00.000 97.5 [degF] Temperature 2023-05-21 11:20:00.000 97.9 [degF] Temperature 2023-05-18 10:59:00.000 97.8 [degF] Pulse 2023-07-11 10:08:00.000 86 /min Pulse 2023-06-18 11:47:00.000 62 /min Pulse 2023-06-14 16:18:00.000 81 /min Pulse 2023-06-04 13:48:00.000 55 /min Pulse 2023-05-30 09:26:00.000 77 /min Pulse 2023-05-28 13:30:00.000 86 /min Pulse 2023-05-21 11:20:00.000 72 /min Pulse 2023-05-18 10:59:00.000 71 /min O2 Saturation (%) 2023-07-11 10:08:00.000 93 % O2 Saturation (%) 2023-06-18 11:47:00.000 91 % O2 Saturation (%) 2023-06-14 16:18:00.000 95 % O2 Saturation (%) 2023-06-04 13:48:00.000 91 % O2 Saturation (%) 2023-05-30 09:26:00.000 97 % O2 Saturation (%) 2023-05-28 13:30:00.000 97 % O2 Saturation (%) 2023-05-21 11:20:00.000 97 % O2 Saturation (%) 2023-05-18 10:59:00.000 98 % Respirations 2023-07-11 10:08:00.000 20 /min Respirations 2023-06-18 11:47:00.000 18 /min Respirations 2023-06-14 16:10:00.000 20 /min Respirations 2023-06-04 13:48:00.000 18 /min Respirations 2023-05-30 09:26:00.000 18 /min Respirations 2023-05-28 13:30:00.000 18 /min Respirations 2023-05-21 11:20:00.000 16 /min Respirations 2023-05-18 10:59:00.000 18 /min Weight (lbs) 2023-06-14 16:19:00.000 182 [lb_av] Systolic Blood Pressure 2023-07-11 10:08:00.000 98 mm[ Hg] Systolic Blood Pressure 2023-06-18 11:47:00.000 110 mm [Hg] Systolic Blood Pressure 2023-06-14 16:10:00.000 127 mm [Hg] Systolic Blood Pressure 2023-06-04 13:48:00.000 106 mm [Hg] Systolic Blood Pressure 2023-05-30 09:26:00.000 104 mm [Hg] Systolic Blood Pressure 2023-05-28 13:30:00.000 120 mm [Hg] Systolic Blood Pressure 2023-05-21 11:20:00.000 130 mm [Hg] Systolic Blood Pressure 2023-05-18 10:59:00.000 128 mm [Hg] Diastolic Blood Pressure 2023-07-11 10:08:00.000 60 mm [Hg] Diastolic Blood Pressure 2023-06-18 11:47:00.000 74 mm [Hg] Diastolic Blood Pressure 2023-06-14 16:10:00.000 72 mm [Hg] Diastolic Blood Pressure 2023-06-04 13:48:00.000 62 mm [Hg] Diastolic Blood Pressure 2023-05-30 09:26:00.000 68 mm [Hg] Diastolic Blood Pressure 2023-05-28 13:30:00.000 78 mm [Hg] Diastolic Blood Pressure 2023-05-21 11:20:00.000 70 mm [Hg] Diastolic Blood Pressure 2023-05-18 10:59:00.000 80 mm [Hg] Plan of Treatment Planned Activity Planned Date Details Comments Future Scheduled Test HOME HEALT H NURSE WILL INSTRUCT ABOUT COPD, APPROPRIATE BREATHING TECHNIQUES, STRATEGIES TO MANAGE COPD TO PREVENT EXACERBATIONS, STRATEGIES TO PROMOTE SLEEP, USE OF A COPD ACTION PLAN, AND WARNING SIGNS TO CALL THE AGENCY, TREATING PROVIDER, OR 911. [code = HOME HEALTH NURSE WILL INSTRUCT ABOUT COPD, APPROPRIATE BREATHING TECHNIQUES, STRATEGIES TO MANAGE COPD TO PREVENT EXACERBATIONS, STRATEGIES TO PROMOTE SLEEP, USE OF A COPD ACTION PLAN, AND WARNING SIGNS TO CALL THE AGENCY, TREATING PROVIDER, OR 911.] Future Scheduled Test THE CER TIFYING PHYSICIAN, ASSOCIATED PHYSICIAN, NPP OR PA WITHIN THE SAME GROUP MAY APPROVE AND SIGN THE ORDER (ON ANY PAGE) ATTESTING THAT THE COMPREHENSIVE OUTCOME ASSESSMENTS, EVALUATIONS, AND HOME HEALTH CERTIFICATION PLANS SUPPORT HOMEBOUND STATUS. HOME HEALTH WEB-PORTAL DOCUMENTATION ACCESSED BY THE PHYSICIAN MUST BE INCORPORATED INTO THE MEDICAL RECORD TO CORROBORATE THE PHYSICIAN, NPP, OR PAS F2F ENCOUNTER TO SUPPORT ELIGIBILITY FOR HOME HEALTH SERVICES. [code = THE CERTIFYING PHYSICIAN, ASSOCIATED PHYSICIAN, NPP OR PA WITHIN THE SAME GROUP MAY APPROVE AND SIGN THE ORDER (ON ANY PAGE) ATTESTING THAT THE COMPREHENSIVE OUTCOME ASSESSMENTS, EVALUATIONS, AND HOME HEALTH CERTIFICATION PLANS SUPPORT HOMEBOUND STATUS. HOME HEALTH WEB-PORTAL DOCUMENTATION ACCESSED BY THE PHYSICIAN MUST BE INCORPORATED INTO THE MEDICAL RECORD TO CORROBORATE THE PHYSICIAN, NPP, OR PAS F2F ENCOUNTER TO SUPPORT ELIGIBILITY FOR HOME HEALTH SERVICES.] Future Scheduled Test EACH ORDER ED IN-HOME OR TELEHEALTH VISIT, THE SKILLED NURSE WILL CONDUCT A COMPREHENSIVE ASSESSMENT INCLUDING VITAL SIGNS, PAIN, SAFETY, MENTAL/COGNITIVE/PSYCHOSOCIAL STATUS, MED MANAGEMENT, NUTRITION, SKIN INTEGRITY, PRESSURE ULCER PREVENTION, AND PATIENT/CAREGIVER ABILITY TO SUPPORT ORDERED CARE. SKILLED NURSE WILL INSTRUCT ON DISEASE PROCESS, MED MGMT., FALL PREVENTION AND SAFETY, INFECTION CONTROL AND PREVENTION, WARNING SIGNS, ADDRESS RESULTS OUTSIDE OF ORDERED PARAMETERS LISTED ON CARE PLAN, AND COORDINATE DISCHARGE WITH THE TREATING PROVIDER. MAY ACCEPT ORDERS FROM THE FOLLOWING PROVIDER(S) WHO WILL BE CONSULTING ON THE CERTIFIED CARE PLAN: DR VALDIVIA [code = EACH ORDERED IN-HOME OR TELEHEALTH VISIT, THE SKILLED NURSE WILL CONDUCT A COMPREHENSIVE ASSESSMENT INCLUDING VITAL SIGNS, PAIN, SAFETY, MENTAL/COGNITIVE/PSYCHOSOCIAL STATUS, MED MANAGEMENT, NUTRITION, SKIN INTEGRITY, PRESSURE ULCER PREVENTION, AND PATIENT/CAREGIVER ABILITY TO SUPPORT ORDERED CARE. SKILLED NURSE WILL INSTRUCT ON DISEASE PROCESS, MED MGMT., FALL PREVENTION AND SAFETY, INFECTION CONTROL AND PREVENTION, WARNING SIGNS, ADDRESS RESULTS OUTSIDE OF ORDERED PARAMETERS LISTED ON CARE PLAN, AND COORDINATE DISCHARGE WITH THE TREATING PROVIDER. MAY ACCEPT ORDERS FROM THE FOLLOWING PROVIDER(S) WHO WILL BE CONSULTING ON THE CERTIFIED CARE PLAN: DR VALDIVIA ] Future Scheduled Test HOME HEALT H NURSE WILL TEACH PATIENT/CAREGIVER ABOUT HEART FAILURE, EDEMA, AND HOW TO WEIGH DAILY AT THE SAME TIME EVERY MORNING AFTER URINATING AND BEFORE BREAKFAST. INSTRUCT PATIENT TO CHECK FOR 2-5LBS. OF WEIGHT GAIN CAUSED BY INCREASED FLUID AND CONTACT THE PHYSICIAN IF 2LBS WEIGHT GAIN IN 1 DAY OR 5LBS WEIGHT GAIN IN 1 WEEK. HOME HEALTH RN TO TEACH PATIENT ABOUT WARNING SIGNS TO CONTACT THE AGENCY, PHYSICIAN, OR 911. MAY ADD 2 PRN VISITS PER MONTH FOR SIGNS/SYMPTOMS OF EXACERBATION SUCH INCREASED EDEMA, WEIGHT GAIN, SHORTNESS OF BREATH, OR FATIGUE. [code = HOME HEALTH NURSE WILL TEACH PATIENT/CAREGIVER ABOUT HEART FAILURE, EDEMA, AND HOW TO WEIGH DAILY AT THE SAME TIME EVERY MORNING AFTER URINATING AND BEFORE BREAKFAST. INSTRUCT PATIENT TO CHECK FOR 2-5LBS. OF WEIGHT GAIN CAUSED BY INCREASED FLUID AND CONTACT THE PHYSICIAN IF 2LBS WEIGHT GAIN IN 1 DAY OR 5LBS WEIGHT GAIN IN 1 WEEK. HOME HEALTH RN TO TEACH PATIENT ABOUT WARNING SIGNS TO CONTACT THE AGENCY, PHYSICIAN, OR 911. MAY ADD 2 PRN VISITS PER MONTH FOR SIGNS/SYMPTOMS OF EXACERBATION SUCH INCREASED EDEMA, WEIGHT GAIN, SHORTNESS OF BREATH, OR FATIGUE.] Future Scheduled Test HOME HEALT H NURSE WILL INSTRUCT THE PATIENT/CAREGIVER ABOUT DEMENTIA INCLUDING CHARACTERISTICS OF DISEASE PROCESS, POSSIBLE COMPLICATIONS, AND SAFETY MEASURES ASSOCIATED WITH ALTERED MENTAL STATUS. [code = HOME HEALTH NURSE WILL INSTRUCT THE PATIENT/CAREGIVER ABOUT DEMENTIA INCLUDING CHARACTERISTICS OF DISEASE PROCESS, POSSIBLE COMPLICATIONS, AND SAFETY MEASURES ASSOCIATED WITH ALTERED MENTAL STATUS.] Future Scheduled Test HOME HEALT H NURSE WILL INSTRUCT PATIENT/CAREGIVER ABOUT THE CEREBRAL VASCULAR ACCIDENT, SIGNS AND SYMPTOMS OF CVA WARNING SIGNS TO CONTACT 911 OR THE AGENCY OR PHYSICIAN, AND SAFETY MEASURES TO IMPLEMENT IN THE HOME. [code = HOME HEALTH NURSE WILL INSTRUCT PATIENT/CAREGIVER ABOUT THE CEREBRAL VASCULAR ACCIDENT, SIGNS AND SYMPTOMS OF CVA WARNING SIGNS TO CONTACT 911 OR THE AGENCY OR PHYSICIAN, AND SAFETY MEASURES TO IMPLEMENT IN THE HOME.] Future Scheduled Test SKILLED NU RSE TO OBSERVE AND ASSESS PATIENT WITH GENERALIZED DEPRESSION AND TEACH DEPRESSIVE SYMPTOMS. [code = SKILLED NURSE TO OBSERVE AND ASSESS PATIENT WITH GENERALIZED DEPRESSION AND TEACH DEPRESSIVE SYMPTOMS.] Future Scheduled Test HOME HEALT H NURSE TO INSTRUCT ON CHRONIC KIDNEY DISEASE ITS COMPLICATIONS, AND WHEN TO CONTACT THE AGENCY, PHYSICIAN OR 911 [code = HOME HEALTH NURSE TO INSTRUCT ON CHRONIC KIDNEY DISEASE ITS COMPLICATIONS, AND WHEN TO CONTACT THE AGENCY, PHYSICIAN OR 911] Future Scheduled Test SKILLED NU RSE TO INSTRUCT ON REASON FOR DIALYSIS AND WHEN TO REPORT COMPLICATIONS TO THEIR MEDICAL PROVIDER. [code = SKILLED NURSE TO INSTRUCT ON REASON FOR DIALYSIS AND WHEN TO REPORT COMPLICATIONS TO THEIR MEDICAL PROVIDER.] Future Scheduled Test HOME HEALT H NURSE WILL ASSESS FOR COMPLICATIONS RELATED TO ANTIPLATELET USE AND INSTRUCT PATIENT/CAREGIVER ABOUT PRECAUTIONS TO FOLLOW AND SIGNS/SYMPTOMS TO REPORT. [code = HOME HEALTH NURSE WILL ASSESS FOR COMPLICATIONS RELATED TO ANTIPLATELET USE AND INSTRUCT PATIENT/CAREGIVER ABOUT PRECAUTIONS TO FOLLOW AND SIGNS/SYMPTOMS TO REPORT. ] Future Scheduled Test PHYSICAL T HERAPIST TO EVALUATE AND TREAT [code = PHYSICAL THERAPIST TO EVALUATE AND TREAT] Goal 2023-05-11 Patient Goal - S OC TO BE ABLE TO WALK AND INCREASE STRENGTH Goal 2023-07-11 Patient Goal - S OC TO BE ABLE TO WALK AND INCREASE STRENGTH 05-11-23 TO WALK BETTER WITH MY WALKER Goal Provider Goal - PATIENT/CAREGIVER WILL DEMONSTRATE WILLINGNESS TO COLLABORATE AND CREATE A COPD ACTION PLAN, VERBALIZE UNDERSTANDING OF STRATEGIES TO PREVENT EXACERBATIONS, AND VERBALIZE WARNING SIGNS AND WHEN TO CONTACT THE TREATING PROVIDER OR 911 UPON THE END OF HOME HEALTH SERVICES. Goal Provider Goal - A PLAN OF CARE WILL BE ESTABLISHED THAT MEETS ALL PATIENT'S HALFWAY NEEDS AND COUNTER SIGNED BY PHYSICIAN. Goal Provider Goal - PATIENT WILL BE FREE OF FALLS AND HOSPITALIZATIONS THROUGHOUT EPISODE OF CARE. PATIENT/CAREGIVER WILL UNDERSTAND AND ADHERE TO ORDERED DIET. PATIENT/CAREGIVER WILL INDEPENDENTLY MANAGE MEDICATIONS, UNDERSTAND ANY CHANGES, SIDE EFFECTS TO REPORT BY EOE. PATIENT WILL BE FREE OF INFECTION AND UNDERSTAND MEASURES OF PREVENTION. PATIENT/CAREGIVER WILL COLLABORATE WITH SKILLED NURSE TO DEVELOP POC AT SOC AND ON AN ONGOING BASIS UPDATES ARE NEEDED. UNDERSTAND PROGRESS MADE/DISCHARGE PLANNING. ADDITIONAL ORDERS WILL BE RECEIVED FROM ALTERNATE PHYSICIANS IN A TIMELY MANNER. Goal Provider Goal - PATIENT/CAREGIVER WILL DEMONSTRATE AND ADHERE TO WEIGHING DAILY WITH THE USE OF TRACKING LOG. PATIENT WILL VERBALIZE WAYS TO MONITOR FLUID OVERLOAD FROM OWN QUALITY OF SLEEP, EDEMA, TIGHT-FITTING CLOTHES, QUALITY OF BREATHING, AND CHANGES IN FEELING MORE TIRED OR WEEK BY THE END OF HOME HEALTH SERVICES. Goal Provider Goal - PATIENT/CAREGIVER WILL DEMONSTRATE REDUCED SUBJECTIVE LEVELS OF STRESS AND DEMONSTRATE INCREASED SAFETY IN THE HOME WITH MAXIMAL FUNCTIONAL TASK ENGAGEMENT BY END OF EPISODE. Goal Provider Goal - PATIENT/CAREGIVER WILL DEMONSTRATE ABILITY TO CARE FOR CEREBRAL VASCULAR ACCIDENT EVIDENCE BY INCORPORATING SAFETY MEASURES IN THE HOME BY EOE. Goal Provider Goal - PATIENT/CAREGIVER WILL VERBALIZE UNDERSTANDING OF THE CONTRIBUTING FACTORS AND SYMPTOMS OF DEPRESSION. Goal Provider Goal - PATIENT/CAREGIVER WILL INDEPENDENTLY VERBALIZE THE DEFINITIONS OF CKD, COMPLICATIONS, AND TREATMENTS OF THE DISEASE BY. PATIENT/CAREGIVER WILL INDEPENDENTLY VERBALIZE SYMPTOMS TO REPORT TO THE PHYSICIAN BY THE END OF HOME HEALTH SERVICES. Goal Provider Goal - PATIENT/CAREGIVER WILL INDEPENDENTLY DEMONSTRATE STRATEGIES IDENTIFY OF EXACERBATION. PATIENT/CAREGIVER WILL BE ABLE TO IDENTIFY SIGNS AND SYMPTOMS OF DEHYDRATION AND ELECTROLYTE IMBALANCE. Goal Provider Goal - PATIENT/CAREGIVER WILL VERBALIZE UNDERSTANDING OF ANTIPLATELET COMPLICATIONS TO REPORT AND PRECAUTIONS TO FOLLOW BY END OF HOME HEALTH SERVICES. Goal Provider Goal - Reason for Visit INDEPENDENT WITH USE OF ASSISTIVE DEVICE Encounters Start Date/Time End Date/Time Encounter Type Admission Type Attending [facility] Care Department Encounter ID Discharge Date Discharge Status Discharge Condition Discharge Reason Percent Goals Met 2023-03-16 00:00:00 2023-07-11 00:00:00 Outpatient RECERTIFIC ATPATIENCE [facility] [id number] 00:00:00 DISCHARGE TO HOME OR SELF CARE INDEPENDEN T WITH USE OF ASSISTIVE DEVICE GOALS MET 96.15
--- OUTSIDE RECORDS SUMMARY | 2024-03-19 18:37 | XMS_ITS | Encounter Summary ---
Author Organization [facility] Address [facility]. [place], [place] [address] [place] [id number] Care Team Providers Care Aircraft Fueler Name Role Phone Jasson Cueva MD Primary Care Provider [phone] Huber Milligan MD Unavailable [phone] Norm Hopkins MD Unavailable [phone] Reason for Referral * Imaging (Urgent) - New Request Specialty Diagnoses / Procedures Referred By Jayce coronado Referred To Contact RADIOLOGY Procedures CT CHEST WO CON Violeta Tai MD [address] [place] [id number] Phone: tel: fax: Referral ID Status Reason Start Date Expiration Date V isits Requested Visits Authorized [id number] New Request 02/07/2024 02/06/2025 1 1 NGUAL SALES ASSISTANT Reason for Visit * Reason Comments Shortness Of Breath Encounter Details Date Type Department Care Team (Late st Contact Info) Description 02/07/2024 10:40 AM BILINGUAL SALES ASSISTANT - 02/07/2024 1:11 PM BILINGUAL SALES ASSISTANT Emergency [place] [facility] [address] [place] [address] Violeta Tai MD [address] [place] [id number] Shortness Of Breath Discharge Disposition: Home or [...] 12/20/2022 How often do you attend chur or catholic services? Never 12/20/2022 Do you belong to any clubs o r organizations such as voodoo groups, unions, fraternal or athletic groups, or [...] and heating? Not hard at all 12/20/2022 [facility] - Occupational Stress [...] place to sleep or slept in a prison (including now)? No 12/20/2022 Comments No Sex and Gender Information Value Date Recorded Sex Assigned at Not on file Legal 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 BILINGUAL SALES ASSISTANT Gender Identity Not on file Sexual Orientation Not on file documented as of this encounter Last Filed Vital Signs Vital Sign Reading Time Taken Comments Blood Pressure 80/71 02/07/2024 12:00 PM BILINGUAL SALES ASSISTANT Pulse 80 02/07/2024 12:45 PM BILINGUAL SALES ASSISTANT Temperature 36.1 ??C (97 ??F) 02/07/2024 10:48 AM BILINGUAL SALES ASSISTANT Respiratory Rate 18 02/07/2024 12:45 PM BILINGUAL SALES ASSISTANT Oxygen Saturation 93% 02/07/2024 12:45 PM BILINGUAL SALES ASSISTANT Inhaled Oxygen Concentration - - Weight 81.6 kg (180 lb) 02/07/2024 10:48 AM BILINGUAL SALES ASSISTANT Height 170.2 cm (5' 7 ) 02/07/2024 10:48 AM BILINGUAL SALES ASSISTANT Body Mass Index 28.19 02/07/2024 10:48 AM BILINGUAL SALES ASSISTANT documented in this encounter Functional Status * [...] this encounter Discharge Instructions * Discharge Instructions* Violeta Tai MD - 02/07/2024 12:55 PM BILINGUAL SALES ASSISTANT Right posterior ninth and 10th rib fractures, shortness of breath, COPD exacerbation Use medications as prescribed Please try to do nebulizer treatments every 6 hours and continue to use your incentive spirometer Follow-up closely with Dr. Cueva Return to emergency room for worsening pain, difficulty breathing, fever or other concerns. NGUAL SALES ASSISTANT documented in this encounter Medications at Time of Discharge acetaminophen (TYLENOL) 325 MG tablet Take 2 tablets (650 mg total) by mouth every 4 (four) hours as needed for Pain. amLODIPine 5 MG tablet 1 tablet (5 mg total) daily. 12/21/2020 aspirin EC 81 MG tablet Take 1 tablet (81 mg total) by mouth daily. furosemide (LASIX) 20 MG tabletIndications :on non dialysis days Take 2 tablets (40 mg total) by mouth. Indications: on non dialysis days gabapentin (NEURONTIN) 100 MG capsule Take 1 capsule (100 mg total) by mouth 3 (three) times daily. 03/13/2023 HYDROcodone-aceta minophen (NORCO) 5-325 MG tabletIndications :Acute Pain < 7 Day Supply Take 1 tablet by mouth every 6 (six) hours as needed. Indications: Acute Pain < 7 Day Supply 15 tablet 02/07/2024 ipratropium-albut chely (DUONEB) 0.5-2.5 (3) MG/3ML Solution Take 3 mLs by nebulization every 6 (six) hours as needed (cough, wheeze). 360 mL 02/07/2024 lidocaine 4 % patch Place 1 patch onto the skin daily. Remove & Discard patch within 12 hours or as directed by MD 30 patch 02/05/2024 NEBULIZER SUPPLY, DME,Indications:C OPD exacerbation (CMS/HCC HHS/HCC) 1 Package by Other route as needed (Shortness of Breath; copd). 1 Package 02/07/2024 vitamin D3, cholecalciferol, 5000 UNITS capsule Take 1 capsule (125 mcg total) by mouth daily. HYDROcodone-aceta minophen (NORCO) 5-325 MG tabletIndications :Acute Pain < 3 Day Supply Take 1 tablet by mouth every 6 (six) hours as needed for Pain. Indications: Acute Pain < 3 Day Supply 12 tablet 02/05/2024 4 predniSONE (DELTASONE) 20 MG tablet Take 2 tablets (40 mg total) by mouth daily for 5 days. 10 tablet 02/07/2024 4 documented as of this encounter ED Notes * Violeta Tai MD - 02/07/2024 11:18 AM CST Chief Complaint Chief Complaint Patient presents with Shortness Of Breath History of Present Illness History obtained from patient, son and medical records Patient is a 73-year-old female who presents to the emergency room with right rib pain and shortness of breath. Patient has a past medical history of COPD, respiratory failure, end-stage renal disease on dialysis Sunday, , Sunday, hypertension. Patient states she fell at home 2 days ago.She was seen in the emergency room on February 04. At that time, patient had a chest x-ray that didnot show any rib fractures. Patient was discharged home with Kilauea which has been helping her pain but patient has had progressively increased shortness of breath. Son states that patient is having difficulty coughing due to the pain. Patient did receive her dialysis Sunday and today. She has required oxygen while getting dialysis. Patient was sent here for further evaluation. Patient denies anyfevers. No new leg swelling. Patient denies any falls since 2 days ago. No headache. Patient is noton oxygen at home. No chest pain other than the right rib pain. Patient states that she does not make significant amounts of urine. Echocardiogram 09/03/23 - The left ventricular size is normal. The left ventricular systolic function is normal. Estimated left ventricular ejection fraction is 55-60%. The left atrial size is mildly enlarged. Left ventricular diastolic function is indeterminant. The right ventricle size is normal. The right ventricular function is normal. Compared to study from 11/16/2021, there is no interval change. Medical History ALLERGIES: Review of patient's allergies indicates: No Known Allergies MEDICATIONS: Prior to Admission medications Medication Sig Start Date End Date Taking? Authorizing Provider HYDROcodone-acetaminophen (NORCO) 5-325 MG tablet Take 1 tablet by mouth every 6 (six) hours as needed. Indications: Acute Pain < 7 Day Supply 02/07/24 Yes Violeta Tai MD ipratropium-albuterol (DUONEB) 0.5-2.5 (3) MG/3ML Solution Take 3 mLs by nebulization every 6 (six)hours as needed (cough, wheeze). 02/07/24 Yes Violeta Tai MD NEBULIZER SUPPLY, DME, 1 Package by Other route as needed (Shortness of Breath; copd). 02/07/24 YesVioleta Tai MD predniSONE (DELTASONE) 20 MG tablet Take 2 tablets (40 mg total) by mouth daily for 5 days. 02/07/24 02/12/24 Yes Violeta Tai MD acetaminophen (TYLENOL) 325 MG tablet Take 2 tablets (650 mg total) by mouth every 4 (four) hours as needed for Pain. Default History Genericprovider amLODIPine 5 MG tablet 1 tablet (5 mg total) daily. 12/21/20 [facility] aspirin EC 81 MG tablet Take 1 tablet (81 mg total) by mouth daily. [facility] furosemide (LASIX) 20 MG tablet Take 2 tablets (40 mg total) by mouth. Indications: on non dialysisdays Default History Genericprovider gabapentin (NEURONTIN) 100 MG capsule Take 1 capsule (100 mg total) by mouth 3 (three) times daily.03/13/23 Default History Genericprovider HYDROcodone-acetaminophen (NORCO) 5-325 MG tablet Take 1 tablet by mouth every 6 (six) hours as needed for Pain. Indications: Acute Pain < 3 Day Supply 02/05/24 02/08/24 Марина Cornell, DO lidocaine 4 % patch Place 1 patch onto the skin daily. Remove & Discard patch within 12 hours or as directed by 02/05/24 Марина Cornell, DO metoprolol succinate ER (TOPROL-XL) 25 MG 24 hr tablet Take 1 tablet (25 mg total) by mouth daily for 30 days. 01/06/23 02/05/24 Mandi Salmon MD vitamin D3, cholecalciferol, 5000 UNITS capsule Take 1 capsule (125 mcg total) by mouth daily. [facility] PAST MEDICAL HISTORY: Past Medical History: Diagnosis Date Acute kidney failure, unspecified (CMS/HCC) Acute pulmonary edema (CMS/HCC HHS/HCC) CHF (congestive heart failure) (CMS/HCC HHS/HCC) Chronic kidney disease, stage IV (severe) (CMS/HCC HHS/HCC) CKD (chronic kidney disease) stage 3, GFR 30-59 ml/min (CMS/HCC HHS/HCC) COPD (chronic obstructive pulmonary disease) (CMS/HCC HHS/HCC) Depression Displaced fracture of proximal end of right humerus 11/06/2018 Hemiplegia and hemiparesis following cerebral infarction affecting right dominant side (CMS/HCC HHS/HCC) HLD (hyperlipidemia) Hypertension Hypertensive chronic kidney disease with stage 1 through stage 4 chronic kidney disease, or unspecified chronic kidney disease Ischemic stroke ([facility]) Memory deficit following other cerebrovascular disease Metabolic encephalopathy Neuropathy Osteoarthritis Other cholelithiasis without obstruction Other specified spondylopathies, cervical region ([facility]) Presence of other cardiac implants and grafts Unstable angina ([facility]) UTI (urinary tract infection) PAST SURGICAL HISTORY: [...] Review of Systems Review of Systems Constitutional: Positive for activity change. Negative for chills and fever. HENT: Negative. Eyes: Negative. Respiratory: Positive for cough, shortness of breath and wheezing. Cardiovascular: Negative. Negative for chest pain and leg swelling. Gastrointestinal: Negative. Negative for abdominal pain, diarrhea, nausea and vomiting. Endocrine: Negative. Genitourinary: Patient does not make significant urine Musculoskeletal: Positive for arthralgias and myalgias. Right rib pain Skin: Negative. Allergic/Immunologic: Negative. Neurological: Negative. Negative for dizziness, weakness and light-headedness. Hematological: Negative. Psychiatric/Behavioral: Negative. Physical Exam Filed Vitals: 02/07/24 1200 02/07/24 1215 02/07/24 1230 02/07/24 1245 BP: (!) 80/71 Pulse: 95 87 91 80 Resp: Temp: TempSrc: SpO2: 90% 92% 93% Weight: Height: Vss except for tachycardia Physical Exam Vitals and nursing note reviewed. Exam conducted with a crankshaft grinder present (son). Constitutional: General: She is not in acute distress. Appearance: She is ill-appearing (chronically ill appearing). HENT: Head: Normocephalic and atraumatic. Cardiovascular: Rate and Rhythm: Regular rhythm. Tachycardia present. Pulses: Normal pulses. Heart sounds: Normal heart sounds. No murmur heard. Pulmonary: Breath sounds: Wheezing and rales present. Comments: Coarse rales bilateral bases, exp wheezing bilaterally Chest: Chest wall: Tenderness (right lateral chest wall tenderness to palpation with no bony crepitus or subcutaneous emphysema) present. Abdominal: General: Bowel sounds are normal. There is no distension. Palpations: Abdomen is soft. Tenderness: There is no abdominal tenderness. There is no guarding or rebound. Musculoskeletal: General: Tenderness (Tenderness to palpation right lateral chest wall with no bony crepitus or subcutaneous emphysema) present. Cervical back: Normal range of motion and neck supple. Skin: General: Skin is warm and dry. Capillary Refill: Capillary refill takes less than 2 seconds. Comments: Tunneled catheter noted in the left anterior chest wall with no surrounding erythema or drainage Neurological: General: No focal deficit present. Mental Status: She is alert and oriented to person, place, and time. Psychiatric: Mood and Affect: Mood normal. Behavior: Behavior normal. Diagnostic Studies / Procedures ELECTROCARDIOGRAMS: Results for orders placed or performed during the hospital encounter of 02/07/24 ECG [address] [place] [address] Test Date: 2024-02-07 Pat Name: ALAYNA LAWRENCE Department: 3 Room: EXAM 101 Gender: Female Ethanol Operator: : [id number] Requested By: VIOLETA TAI Order Number: [id number] Reading MD: Measurements Intervals [place] Rate: 95 P: 35 GA: 128 QRS: -78 QRSD: 97 T: 65 QT: 365 QTc: 460 Interpretive Statements SINUS RHYTHM PATTERN CONSISTENT WITH PULMONARY DISEASE INFERIOR MYOCARDIAL INFARCTION , PROBABLY OLD LABORATORY STUDIES: Results for orders placed or performed during the hospital encounter of 02/07/24 CBC W/DIFF AUTOMATED Result Value Ref Range WBC 9.88 4.00 - 10.80 x10'3/uL RBC 3.61 (L) 4.10 - 5.40 x10'6/uL HGB 12.4 12.0 - 16.0 G/DL HCT 37.2 36.0 - 47.0 % MCV 103.0 (H) 78.0 - 100.0 FL MCH 34.3 (H) 27.0 - 31.0 PG MCHC 33.3 33.0 - 36.0 G/DL RDW 12.9 11.5 - 14.5 % PLT 187 150 - 350 x10'3/uL MPV 10.1 7.4 - 10.4 FL CBC COMMENT NORMAL REFERENCE RANGE NOT ESTABLISHED FOR THE PROPORTIONAL LEUKOCYTE DIFFERENTIAL. NEUTROPHILS % 70.4 % LYMPHOCYTES % 15.8 % MONOCYTES % 11.5 % EOSINOPHILS % 1.5 % BASOPHILS % 0.6 % IMMATURE GRANS % 0.2 % NRBC % 0.0 % ABS. NEUTROPHILS 6.95 1.60 - 8.30 x10'3/uL ABS. LYMPHOCYTES 1.56 0.80 - 4.70 x10'3/uL ABS. MONOCYTES 1.14 0.00 - 1.50 x10'3/uL ABS. EOSINOPHILS 0.15 0.00 - 0.40 x10'3/uL ABS. BASOPHILS 0.06 0.00 - 0.20 x10'3/uL ABS. IMMATURE GRANULOCYTES 0.02 0.00 - 0.03 x10'3/uL ABS. NUCLEATED RBC'S 0.00 0.00 - 0.01 x10'3/uL COMPREHENSIVE METABOLIC PANEL Result Value Ref Range SODIUM S/P/B 138 136 - 145 MMOL/L POTASSIUM S/P/B 4.6 3.5 - 5.1 MMOL/L CHLORIDE S/P/B 98 98 - 107 MMOL/L CO2 29.3 21.0 - 32.0 MMOL/L GLUCOSE 114 (H) 70 - 99 MG/DL BUN 18 6 - 24 MG/DL CREATININE S/P/B 3.66 (H) 0.55 - 1.02 MG/DL CALCIUM S/P/B 9.1 8.4 - 10.5 MG/DL BILIRUBIN TOTAL S/P/B 0.8 0.2 - 1.0 MG/DL ALKALINE PHOSPHATASE S/P/B 69 55 - 142 U/L AST 19 15 - 37 U/L ALT 15 14 - 59 U/L TOTAL PROTEIN S/P/B 7.7 6.4 - 8.2 G/DL ALBUMIN S/P/B 3.8 3.4 - 5.0 G/DL ANION GAP 10.7 5.0 - 15.0 MMOL/L OSMOLALITY (CALC) 289 MOSM/KG GFR ESTIMATE 13 (L) >89 ML/MIN/1.73 M2 GFR NOTES GFR REFERENCES: Blood gas, venous Result Value Ref Range PH VENOUS 7.50 (H) 7.32 - 7.43 PCO2 VENOUS 47.0 MMHG PO2 VENOUS <30.0 MM HG TOTAL CO2 VENOUS 38.1 (H) 22.0 - 26.0 MMOL/L BASE EXCESS VENOUS 11.8 MMOL/L O2 SAT VENOUS NOT CALCULATED % BICARB VENOUS 36.7 (H) 22.0 - 29.0 MMOL/L O2 ADMIN VENOUS ROOM AIR LACTIC ACID W REFLEX (SEPSIS) Result Value Ref Range LACTIC ACID VENOUS 2.0 0.4 - 2.0 MMOL/L TROPONIN, QUANT Result Value Ref Range TROPONIN I HIGH SENSITIVITY 14 0 - 51 ng/L MAGNESIUM Result Value Ref Range MAGNESIUM 2.1 1.8 - 2.4 MG/DL PRO-BRAIN NATRIURETIC PEPTIDE Result Value Ref Range PRO-B TYPE NATRIURETIC PEPTIDE 949 (H) <125 PG/ML IMAGING STUDIES CT CHEST WO CON Final Result by User, [id number] (02/06 1233) [place] [id number] [place] [address] Examination: CT of the chest without contrast. Exam time: 1129 hours. Clinical history: Cough. Dyspnea. Fell two days ago. Right-sided pain. Normal WBC count. Elevated BNP. History of renal failure, on dialysis. Former smoker. Comparison: 02/27/2023 ([facility] Technique: Spiral scanning was performed through the chest without contrast. Sagittal and coronal reconstructions were performed from the data set. A dose lowering technique was used [...] evident. Cholelithiasis and bilateral nephrolithiasis again evident. IMPRESSION: 1. Acute nondisplaced right ninth and tenth posterolateral rib fractures. 2. No significant acute intrathoracic process identified. 3. Coronary artery disease. 4. Centrilobular emphysema. 5. Additional chronic/nonurgent findings as described. Ordered By: VIOLETA TAI Interpreted By: Jacky Saul MD, 02/07/2024 12:12 PM ED Course / Medical Decision Making Medical Decision Making ED Course as of 02/07/24 1255 Joan Feb 07, 2024 1111 Differential diagnosis of pulmonary edema, pneumonia, right rib fractures, pulmonary contusion, COPD, [facility] Will give her a small dose of pain medication now she just took her Kilauea prior to arrival. Previous echocardiogram and labs have been reviewed. Will also give patient a DuoNeb. EKG independently interpreted by me as sinus tachycardia with a rate of 95. No acute ST elevation. QTc is normal. EKG is unchanged from February 05, 2024 [MA] 1144 CBC is unremarkable. VBG with mildly increased pH level. [MA] 1154 Lactic acid is normal. [MA] 1226 Chemistry is unremarkable except for elevated creatinine which is baseline. Magnesium is normal. BNP is minimally elevated. Troponin is normal. [MA] 1237 CT with right ninth and 10th rib fractures. Patient states she feels better after nebulizer treatment. [MA] 1240 D/w Dr. Resendiz. [MA] 1250 Long discussion with patient. She is feeling better after nebulizer treatment. Discussed with patient and son at length. Did offer transfer and admission versus trying to go home. Patient is oxygenating 92 to 93%. After long discussion, patient and son would like to try to go home. Will continue pain medication and lidocaine patch. Continue incentive spirometer. Patient is not a diabetic andwill give a short course of prednisone for COPD along with nebulizer treatments. Return instructions given to both patient and son. Both agree with plan. [MA] ED Course User Index [MA] Violeta Tai MD Clinical Impression Closed fracture of multiple ribs of right side, initial encounter (Primary) COPD exacerbation ([facility]) Shortness of breath ESRD (end stage renal disease) ([facility]) Disposition: Discharge Violeta Tai MD 02/07/24 1255 NGUAL SALES ASSISTANT * Matt Ram RN - 02/07/2024 10:47 AM CST Pt presents to the Er with c/o SOB pt states that she was seen here yesterday for a fall resultinf in pain to right side rib cage no fractures seen after xray. Pt pain 10/26. Not getting any better O296 %on RA NGUAL SALES ASSISTANT documented in this encounter Plan of Treatment [...] CHEST WO CON STAT 02/07/2024 11:26 AM BILINGUAL SALES ASSISTANT CULTURE, BACTERIA, BLOOD STAT 02/07/2024 11:15 AM BILINGUAL SALES ASSISTANT LACTIC ACID W REFLEX (SEPSIS) STAT 02/07/2024 11:05 AM BILINGUAL SALES ASSISTANT PRO-BRAIN NATRIURETIC PEPTIDE STAT 02/07/2024 11:05 AM BILINGUAL SALES ASSISTANT BLOOD GAS, VENOUS STAT 02/07/2024 11: 05 AM BILINGUAL SALES ASSISTANT COMPREHENSIVE METABOLIC PANEL STAT 02/07/2024 11:05 AM BILINGUAL SALES ASSISTANT CBC W/DIFF AUTOMATED STAT 02/07/2024 11:05 AM BILINGUAL SALES ASSISTANT TROPONIN, QUANT STAT 02/07/2024 11:05 AM BILINGUAL SALES ASSISTANT MAGNESIUM STAT 02/07/2024 11:05 AM BILINGUAL SALES ASSISTANT ECG 12-LEAD Routine 02/07/2024 10:45 AM BILINGUAL SALES ASSISTANT documented in this encounter Results * CT CHEST WO CON (02/07/2024 11:26 AM BILINGUAL SALES ASSISTANT) Anatomical Region Laterality Modality Chest Computed Tomogra phy 02/07/2024 12:1 2 PM BILINGUAL SALES ASSISTANT Impressions 02/07/2024 12:31 PM BILINGUAL SALES ASSISTANT IMPRESSION: 1. Acute nondisplaced right ninth and tenth posterolateral rib fractures. 2. No significant acute intrathoracic process identified. 3. Coronary artery disease. 4. Centrilobular emphysema. 5. Additional chronic/nonurgent findings as described. Ordered By: VIOLEAT TAI Interpreted By: Jacky Saul MD, 02/07/2024 12:12 PM Narrative 02/07/2024 12:31 PM BILINGUAL SALES ASSISTANT [address] [place] [address] Examination: CT of the chest without contrast. Exam time: 1129 hours. Clinical history: Cough. Dyspnea. Fell two days ago. Right-sided pain. Normal WBC count. Elevated BNP. History of renal failure, on dialysis. Former smoker. Comparison: 02/27/2023 ([facility]). Technique: Spiral scanning was performed through the [...] Procedure Note Jacky Saul MD - 02/07/[address] [place] [address] Examination: CT of the chest without contrast. Exam time: 1129 hours. Clinical history: Cough. Dyspnea. Fell two days ago. Right-sided pain.Normal WBC count. Elevated BNP. History of renal failure, on dialysis.Former smoker. Comparison: 02/27/2023 ([facility]). Technique: Spiral scanning was performed through the [...] By: Jacky Saul MD, 02/07/2024 12:12 PM us Violeta Tai MD CT Final Resul t * BLOOD CULTURE #1 (02/07/2024 11:15 AM BILINGUAL SALES ASSISTANT) SPEC DESCRIPTION BLOOD 02/07/2024 10:56 AM BILINGUAL SALES ASSISTANT [facility] SPECIAL REQUESTS NO SPECIAL REQUEST 02/07/2024 10:56 AM BILINGUAL SALES ASSISTANT [facility] CULTURE RESULT NO GROWTH 5 DAYS 02/12/2024 10:56 AM BILINGUAL SALES ASSISTANT [facility] BLOOD SPECIMEN OBTAINED FOR BLOOD CULTURE / Unknown 02/07/2024 11:15 AM BILINGUAL SALES ASSISTANT 02/07/2024 11:20 AM BILINGUAL SALES ASSISTANT Violeta Tai MD MICROBIOLOGY - GENERAL MADHUJolie RIVERA Final Result [facility] [address] [place] [address], * (ABNORMAL) PRO-BRAIN NATRIURETIC PEPTIDE (02/07/2024 11:05 AM BILINGUAL SALES ASSISTANT) PRO-B TYPE NATRIURETIC PEPTIDE 949(H) <125 PG/ML 02/07/2024 12:13 PM BILINGUAL SALES ASSISTANT [facility] Comment: CUT POINTS ESTABLISHED BY INTERNATIONAL [...] FOR ACUTE CHF. 02/07/2024 11:0 5 AM BILINGUAL SALES ASSISTANT us Violeta Tai MD LABORATORY Final Resul t Performing Organization Address City/[facility]/ZIP Co de Phone Number [facility] [address] [place] [address], * MAGNESIUM (02/07/2024 11:05 AM BILINGUAL SALES ASSISTANT) MAGNESIUM 2.1 1.8 - 2.4 MG/DL 02/07/2024 12:13 PM BILINGUAL SALES ASSISTANT [facility] 02/07/2024 11:0 5 AM BILINGUAL SALES ASSISTANT us Violeta Tai MD LABORATORY Final Resul t [facility] [address] [place] [address], * TROPONIN, QUANT (02/07/2024 11:05 AM BILINGUAL SALES ASSISTANT) TROPONIN I HIGH SENSITIVITY 14 0 - 51 ng/L 02/07/2024 12:13 PM BILINGUAL SALES ASSISTANT [facility] 02/07/2024 11:0 5 AM BILINGUAL SALES ASSISTANT us Violeta Tai MD LABORATORY Final Resul t Performing Organization Address [facility]/ZIP Co de Phone Number [facility] [address] [place] [address], * LACTIC ACID W REFLEX (SEPSIS) (02/07/2024 11:05 AM BILINGUAL SALES ASSISTANT) Pathologist [facility] LACTIC ACID VENOUS 2.0 0.4 - 2.0 MMOL/L 02/07/2024 11:45 AM BILINGUAL SALES ASSISTANT [facility] 02/07/2024 11:0 5 AM BILINGUAL SALES ASSISTANT us Violeta Tai MD LABORATORY Final Resul t Performing Organization Address [facility] Co de Phone Number [facility] [address] [place] [phone], * (ABNORMAL) Blood gas, venous (02/07/2024 11:05 AM BILINGUAL SALES ASSISTANT) Pathologist [facility] PH VENOUS 7.50(H) 7.32 - 7.43 02/07/2024 11:24 AM [facility] PCO2 VENOUS 47.0 MMHG 02/07/2024 11:24 AM [facility] Comment:NO REFERENCE RANGE H BEEN ESTABLISHED PO2 VENOUS <30.0 MM HG 02/07/2024 11:24 AM [facility] Comment:NO REFERENCE RANGE H BEEN ESTABLISHED TOTAL CO2 VENOUS 38.1(H) 22.0 - 26.0 MMOL/L 02/07/2024 11:24 AM [facility] BASE EXCESS VENOUS 11.8 MMOL/L 02/07/2024 11:24 AM [facility] Comment:NO REFERENCE RANGE H BEEN ESTABLISHED O2 SAT VENOUS NOT CALCULATED % 11/21/2 024 11:24 AM [facility] Comment:NO REFERENCE RANGE H BEEN ESTABLISHED BICARB VENOUS 36.7(H) 22.0 - 29.0 MMOL/L 02/07/2024 11:24 AM [facility] O2 ADMIN VENOUS ROOM AIR 11:20 AM [facility] 02/07/2024 11:0 5 AM BILINGUAL SALES ASSISTANT us Violeta Tai MD LABORATORY Final Resul t [facility] [address] [place] [place] [address], * (ABNORMAL) COMPREHENSIVE METABOLIC PANEL (02/07/2024 11:05 AM BILINGUAL SALES ASSISTANT) SODIUM S/P/B 138 136 - 145 MMOL/L 02/07/2024 12:13 PM [facility] POTASSIUM S/P/B 4.6 3.5 - 5.1 MMOL/L 02/07/2024 12:13 PM [facility] Comment:MILD HEMOLYSIS, RESU LT MAY BE AFFECTED. CHLORIDE S/P/B 98 98 - 107 MMOL/L 02/07/2024 12:13 PM [facility] CO2 29.3 21.0 - 32.0 MMOL/L 02/07/2024 12:13 PM [facility] GLUCOSE 114(H) 70 - 99 MG/DL 02/07/2024 12:13 PM [facility] Comment: FASTING GLUCOSE 100 TO 125 MG/DL IS CONSISTENT WITH IMPAIRED FASTING GLUCOSE. FASTING GLUCOSE >125 MG/DL IS CONSISTENT WITH DIABETES. RANDOM GLUCOSE >200 MG/DL WITH HYPERGLYCEMIC SYMPTOMS IS CONSISTENT WITH DIABETES. PER ADA GUIDELINES BUN 18 6 - 24 MG/DL 02/07/2024 12:13 PM [facility] CREATININE S/P/B 3.66(H) 0.55 - 1.02 MG/DL 02/07/2024 12:13 PM [facility] CALCIUM S/P/B 9.1 8.4 - 10.5 MG/DL 02/07/2024 12:13 PM [facility] BILIRUBIN TOTAL S/P/B 0.8 0.2 - 1.0 MG/DL 02/07/2024 12:13 PM [facility] Comment: THIS ASSAY IS NOT RECOMMENDED FOR PATIENTS UNDERGOING TREATMENT WITH ELTROMBOPAG DUE TO THE POTENTIAL FOR FALSELY ELEVATED RESULTS. ALKALINE PHOSPHATASE S/P/B 69 55 - 142 U/L 02/07/2024 12:13 PM [facility] AST 19 15 - 37 U/L 02/07/2024 12:13 PM [facility] Comment:MILD HEMOLYSIS, RESU LT MAY BE AFFECTED. ALT 15 14 - 59 U/L 02/07/2024 12:13 PM [facility] TOTAL PROTEIN S/P/B 7.7 6.4 - 8.2 G/DL 02/07/2024 12:13 PM [facility] ALBUMIN S/P/B 3.8 3.4 - 5.0 G/DL 02/07/2024 12:13 PM [facility] ANION GAP 10.7 5.0 - 15.0 MMOL/L 02/07/2024 12:13 PM [facility] OSMOLALITY (CALC) 289 MOSM/KG 024 12:13 PM [facility] Comment:REFERENCE RANGE NOT ESTABLISHED GFR ESTIMATE 13(L) >89 ML/MIN/1. 73 M2 02/07/2024 12:13 PM [facility] GFR NOTES GFR REFERENCE S: 02/07/2024 12:13 PM [facility] Comment: THE ESTIMATED GFR IS CALCULATED [...] <15 ml/min/1.73 m2 02/07/2024 11:0 5 AM BILINGUAL SALES ASSISTANT Violeta Tai MD LABORATORY Final Resul t [facility] [address] [place] [address], * (ABNORMAL) CBC W/DIFF AUTOMATED (02/07/2024 11:05 AM BILINGUAL SALES ASSISTANT) WBC 9.88 4.00 - 10.80 x10'3/uL 02/07/2024 11:32 AM [facility] RBC 3.61(L) 4.10 - 5.40 x10'6/uL 02/07/2024 11:32 AM [facility] HGB 12.4 12.0 - 16.0 G/DL 02/07/2024 11:32 AM [facility] HCT 37.2 36.0 - 47.0 % 02/07/2024 11:32 AM [facility] MCV 103.0(H) 78.0 - 100.0 FL 02/07/2024 11:32 AM [facility] MCH 34.3(H) 27.0 - 31.0 PG 02/07/2024 11:32 AM [facility] MCHC 33.3 33.0 - 36.0 G/DL 02/07/2024 11:32 AM [facility] RDW 12.9 11.5 - 14.5 % 02/07/2024 11:32 AM [facility] PLT 187 150 - 350 x10'3/uL 02/07/2024 11:32 AM [facility] MPV 10.1 7.4 - 10.4 FL 02/07/2024 11:32 AM [facility] CBC COMMENT NORMAL REFERENCE RANGE NOT ESTABLISHED FOR THE PROPORTIONAL LEUKOCYTE DIFFERENTIAL. 02/07/2024 11:32 AM [facility] NEUTROPHILS % 70.4 % 02/07/2024 11:32 AM BILINGUAL SALES ASSISTANT [facility] LYMPHOCYTES % 15.8 % 02/07/2024 11:32 AM BILINGUAL SALES ASSISTANT [facility] MONOCYTES % 11.5 % 02/07/2024 11:32 AM BILINGUAL SALES ASSISTANT [facility] EOSINOPHILS % 1.5 % 02/07/2024 11:32 AM BILINGUAL SALES ASSISTANT [facility] BASOPHILS % 0.6 % 02/07/2024 11:32 AM BILINGUAL SALES ASSISTANT [facility] IMMATURE GRANS % 0.2 % 02/07/20 11:32 AM BILINGUAL SALES ASSISTANT [facility] NRBC % 0.0 % 02/07/2024 11:32 AM BILINGUAL SALES ASSISTANT [facility] ABS. NEUTROPHILS 6.95 1.60 - 8.30 x10'3/uL 02/07/2024 11:32 AM BILINGUAL SALES ASSISTANT [facility] ABS. LYMPHOCYTES 1.56 0.80 - 4.70 x10'3/uL 02/07/2024 11:32 AM BILINGUAL SALES ASSISTANT [facility] ABS. MONOCYTES 1.14 0.00 - 1.50 x10'3/uL 02/07/2024 11:32 AM BILINGUAL SALES ASSISTANT [facility] ABS. EOSINOPHILS 0.15 0.00 - 0.40 x10'3/uL 02/07/2024 11:32 AM BILINGUAL SALES ASSISTANT [facility] ABS. BASOPHILS 0.06 0.00 - 0.20 x10'3/uL 02/07/2024 11:32 AM BILINGUAL SALES ASSISTANT [facility] ABS. IMMATURE GRANULOCYTES 0.02 0.00 - 0.03 x10'3/uL 02/07/2024 11:32 AM BILINGUAL SALES ASSISTANT [facility] ABS. NUCLEATED RBC'S 0.00 0.00 - 0.01 x10'3/uL 02/07/2024 11:32 AM BILINGUAL SALES ASSISTANT [facility] 02/07/2024 11:0 5 AM BILINGUAL SALES ASSISTANT us Violeta Tai MD LABORATORY Final Resul t [facility] [address] [place] [address], * ECG 12 lead (02/07/2024 10:45 AM BILINGUAL SALES ASSISTANT) 02/07/2024 10:4 5 AM BILINGUAL SALES ASSISTANT Narrative [facility] - 02/07/2024 3:42 PM BILINGUAL SALES ASSISTANT ? [facility] ?[address] [place] ??[address] ? Test Date: ?2024-02-07 Pat Name: ? ALAYNA LAWRENCE ?Department: ?? 3 ? Room: ? EXAM 101 Gender: ? Female ? Ethanol Operator: ?? : ?[id number] ? Requested By: VIOLETA TAI Order Number: [id number] ? Reading MD: ?? Andrzej Fuentes ? Measurements Intervals ?[place] ? Rate: ? 95 ? P: ?35 GA: ? 128 ?QRS: ?-78 QRSD: ? 97 ? T: ?65 QT: ? 365 ? QTc: ?460 ? Interpretive Statements SINUS RHYTHM PATTERN CONSISTENT WITH PULMONARY DISEASE INFERIOR MYOCARDIAL INFARCTION , PROBABLY OLD NGUAL SALES ASSISTANT Procedure Note Andrzej Fuentes MD - 02/07/[address] [place] [address] Test Date: 2024-02-07 Pat Name: ALAYNA LAWRENCE Department: 3 Room: EXAM 101 Gender: Female Ethanol Operator: : 1950 Requested By: VIOLETA TAI Order Number: [id number] Tae MD: Sherif Measurements Intervals [place] Rate: 95 P: 35 GA: 128 QRS: -78 QRSD: 97 T: 65 QT: 365 QTc: 460 Interpretive Statements SINUS RHYTHM PATTERN CONSISTENT WITH PULMONARY DISEASE INFERIOR MYOCARDIAL INFARCTION , PROBABLY OLD NGUAL SALES ASSISTANT us Violeta Tai MD ECG ORDERABLES Final Resul t [facility] documented in this encounter Visit Diagnoses Diagnosis Closed fracture of multiple ribs of right side, initial encounter- Primary COPD exacerbation ([facility]) Obstructive chronic bronchitis with exacerbation Shortness of breath ESRD (end stage renal disease) ([facility]) End stage renal disease documented in this encounter Administered Medications Inactive Administered Medications - up to 3 most recent administrations Medication Order MAR Action Action Date Dose Rate Site ipratropium-albuterol (DUONEB) 0.5-2.5 (3) MG/3ML nebulizer solution 3 mL 3 mL, Nebulization, Once, 1 dose, On Joan 02/07/24 at 1130 Given 02/07/2024 11:30 AM BILINGUAL SALES ASSISTANT 3 mLs documented in this encounter Active and Recently Administered Medications Times are shown in BILINGUAL SALES ASSISTANT. Scheduled Medication Order 02/05/2024 02/06/2024 02/07/2024 fentaNYL (SUBLIMAZE) injection 25 mcg 25 mcg, Intravenous, Once, 1 dose, On Joan 02/07/24 at 1100, If intravenous (IV) route has been ordered, give over 1-2 minutes. 1257 (Not Given - Pr ovider: Suzy Marin RN - Reason: Order parameters not met - Comment: hypotensive. Dr. Tai aware) ipratropium-albuterol (DUONEB) 0.5-2.5 (3) MG/3ML nebulizer solution 3 mL (COMPLETED) 3 mL, Nebulization, Once, 1 dose, On Joan 02/07/24 at 1130 1130 (Given - Provid er: Patric Winston, MOLECULAR BIOLOGY DIRECTOR) documented in this encounter Care Teams Aircraft Fueler Relationship Specialty Start Date End Date Jasson Cueva MD [address] [place] [phone] PCP - General FAMILY PRACTICE 11/03/18 Huber Milligan MD [address] [place] [phone] Consulting Physician Vascular Neurology 04/30/19 Norm Hopkins MD [address] [place], [place] [address] Consulting Physician CLINICAL CARDIAC ELECTROPHYSIOLOGY 04/30/19 documented as of this encounter
--- OUTSIDE RECORDS SUMMARY | 2024-03-19 18:37 | XMS_ITS | Encounter Summary ---
Author Organization [facility] Address [address] [place] [address]. [place], [place] [id number] [place] [id number] Care Team Providers Care Safety Scientist Name Role Phone Jasson Cueva MD Primary Care Provider [phone] Huber Milligan MD Unavailable [phone] Norm Hopkins MD Unavailable [phone] Encounter Details Date Type Department Care Team (Latest Contact Info) Description 09/03/2023 Travel Social History Tobacco Use Types Packs/Day [...] often do you attend chur ch or yarsanism services? Never 12/20/2022 Do you belong to any clubs o r organizations such as bahai groups, unions, fraternal or athletic groups, or [...] and heating? Not hard at all 12/20/2022 [facility] - Occupational Stress [...] on file Legal 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 AGRONOMIST Gender Identity Not on file Sexual Orientation [...] on filedocumented in this encounter Care Teams Safety Scientist Relationship Specialty Start Date End Date Jasson Cueva MD [address] [place] [phone] PCP - General FAMILY PRACTICE 11/03/18 Huber Milligan MD [address] [place] [phone] Consulting Physician Vascular Neurology 04/30/19 Norm Hopkins MD [address] [place] [id number] Consulting Physician CLINICAL CARDIAC ELECTROPHYSIOLOGY 04/30/19 documented as of this encounter
--- OUTSIDE RECORDS SUMMARY | 2024-03-19 18:37 | XMS_ITS | Encounter Summary ---
Author Organization [facility] Address [address] [place] [address]. [place], [place] [id number] [place] [id number] Care Team Providers Care In Flight Refueling Manager Name Role Phone Jasson Cueva MD Primary Care Provider [phone] Huber Milligan MD Unavailable [phone] Norm Hopkins MD Unavailable [phone] Reason for Referral * Imaging (Emergency) - New Request Specialty Diagnoses / Procedures Referred By Jayce coronado Referred To Contact RADIOLOGY Procedures CT HEAD WO CON Angle Alcantara DO [address] [place] [id number] Phone: tel: fax: Referral ID Status Reason Start Date Expiration Date V isits Requested Visits Authorized [id number] New Request 11/22/2023 11/21/2024 1 1 Reason for Visit * Reason Comments Generalized Weakness Encounter Details Date Type Department Care Team (Late st Contact Info) Description 11/22/2023 10:39 AM CDT - 11/22/2023 1:52 PM CDT Emergency [place] [facility] [place] [address] Angle Alcantara DO [address] [place] [id number] Generalized Weakness Discharge Disposition: Home or Self Care (Routine [...] often do you attend chur ch or restoration services? Never 12/20/2022 Do you belong to [...] and heating? Not hard at all 12/20/2022 [employer] [place] [facility] - Occupational Stress [...] place to sleep or slept in a halfway (including now)? 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 Gender Identity Not on file Sexual Orientation Not on file documented as of this encounter Last Filed Vital Signs Vital Sign Reading Time Taken Comments Blood Pressure 146/88 11/22/2023 12:30 PM CDT Pulse 79 11/22/2023 1:30 PM CDT Temperature 36.6 ??C (97.8 ??F) 11/22/2023 10:42 AM C DT Respiratory Rate 13 11/22/2023 1:30 PM CDT Oxygen Saturation 97% 11/22/2023 1:00 PM CDT Inhaled Oxygen Concentration - - Weight 77.1 kg (170 lb) 11/22/2023 10:53 AM CDT Height 170.2 cm (5' 7 ) 11/22/2023 10:53 AM CDT Body Mass Index 26.63 11/22/2023 10:53 AM CDT documented in this encounter Functional Status * [...] this encounter Discharge Instructions * Discharge Instructions* Angle Alcantara DO - 11/22/2023 1:43 PM CDT Trisha Waite discharge to home/self care. Follow with PCP Take antibiotic for urinary tract infection as prescribed Return to the ER for worsening symptoms or any concerns * Attachments The following attachments cannot be sent through Care Everywhere. * Asymptomatic Bacteriuria (Portuguese) documented in this encounter Medications at Time [...] capsule (125 mcg total) by mouth daily. omeprazole (PRILOSEC) 20 MG capsule Take 1 capsule (20 mg total) by mouth daily. 02/05/2024 sulfamethoxazole -trimethoprim (BACTRIM) 400-80 MG tablet Take 1 tablet by mouth 2 (two) times daily for 5 days. 10 tablet 11/22/2023 11/27/2023 documented as of this encounter ED Notes * Angle Alcantara DO - 11/22/2023 11:48 AM CDT Chief Complaint Chief Complaint Patient presents with Generalized Weakness History of Present Illness Patient is a 73 yo F here for anxiety and confusion for 10 minutes after completing HD today She took off the BP cuff and was anxious per son Patient afebrile and vitally stable No symptoms at this time Alert and oriented x4 CGS 15 Son reports she has memory problems after a stroke, no diagnosis of dementia Son concerned for UTI which can cause her delirium Patient pleasant following commands No falls or injuries No missed HD Medical History ALLERGIES: Review of patient's allergies indicates: No Known Allergies MEDICATIONS: Prior to Admission medications Medication Sig Start Date End Date Taking? Authorizing Provider acetaminophen (TYLENOL) 325 MG tablet Take 2 tablets (650 mg total) by mouth every 4 (four) hours as needed for Pain. Yes Default History Genericprovider gabapentin (NEURONTIN) 100 MG capsule Take 1 capsule (100 mg total) by mouth 3 (three) times daily.12/26/23 Yes Default History Genericprovider sulfamethoxazole-trimethoprim (BACTRIM) 400-80 MG tablet Take 1 tablet by mouth 2 (two) times dailyfor 5 days. 11/22/23 11/27/23 Yes Angle Alcantara, amLODIPine 5 MG tablet 1 tablet (5 mg total) daily. 12/21/20 [facility] aspirin EC 81 MG tablet Take 1 tablet (81 mg total) by mouth daily. [facility] furosemide (LASIX) 20 MG tablet Take 2 tablets (40 mg total) by mouth daily. Default History Genericprovider metoprolol succinate ER (TOPROL-XL) 25 MG 24 hr tablet Take 1 tablet (25 mg total) by mouth daily for 30 days. 01/06/23 02/27/23 Mandi Salmon MD omeprazole (PRILOSEC) 20 MG capsule Take 1 capsule (20 mg total) by mouth daily. Default History Genericprovider vitamin D3, cholecalciferol, 5000 UNITS capsule Take 1 capsule (125 mcg total) by mouth daily. [facility] PAST MEDICAL HISTORY: Past Medical History: Diagnosis Date Acute kidney failure, unspecified ([facility]) Acute pulmonary edema ([facility] HHS/HCC) CHF (congestive heart failure) ([facility] HHS/HCC) Chronic kidney disease, stage IV (severe) ([facility]/HCC) CKD (chronic kidney disease) stage 3, GFR 30-59 ml/min ([facility]/HCC) COPD (chronic obstructive pulmonary disease) ([facility] HHS/HCC) Depression Displaced fracture of proximal end of right humerus 11/06/2018 Hemiplegia and hemiparesis following cerebral infarction affecting right dominant side ([facility]HCC) HLD (hyperlipidemia) Hypertension Hypertensive chronic kidney disease with stage 1 through stage 4 chronic kidney disease, or unspecified chronic kidney disease Ischemic stroke ([facility] HHS/HCC) Memory deficit following other cerebrovascular disease Metabolic encephalopathy Neuropathy Osteoarthritis Other cholelithiasis without obstruction Other specified spondylopathies, cervical region ([facility]) Presence of other cardiac implants and grafts Unstable angina ([facility]) UTI (urinary tract infection) PAST SURGICAL HISTORY: [...] Marijuana Review of Systems Review of Systems All other systems reviewed and are negative. Physical Exam Filed Vitals: 11/22/23 1200 11/22/23 1230 11/22/23 1300 11/22/23 1330 BP: 135/82 (!) 146/88 Pulse: 83 71 80 79 Resp: 16 16 22 13 Temp: TempSrc: SpO2: 97% 90% 97% Weight: Height: Physical Exam Vitals and nursing note reviewed. Constitutional: Appearance: Normal appearance. HENT: Head: Normocephalic and atraumatic. Right Ear: External ear normal. Left Ear: External ear normal. Nose: Nose normal. Mouth/Throat: Mouth: Mucous membranes are moist. Pharynx: Oropharynx is clear. Eyes: Conjunctiva/sclera: Conjunctivae normal. Pupils: Pupils are equal, round, and reactive to light. Cardiovascular: Rate and Rhythm: Normal rate and regular rhythm. Comments: RUE HD Fistula Pulmonary: Effort: Pulmonary effort is normal. Breath sounds: No wheezing or rhonchi. Comments: L tunneled HD cath well dressed Abdominal: General: Abdomen is flat. Palpations: Abdomen is soft. Tenderness: There is no abdominal tenderness. There is no guarding. Genitourinary: Comments: declined Musculoskeletal: General: Normal range of motion. Cervical back: Normal range of motion and neck supple. Skin: General: Skin is warm and dry. Capillary Refill: Capillary refill takes less than 2 seconds. Neurological: General: No focal deficit present. Mental Status: She is alert and oriented to person, place, and time. Psychiatric: Mood and Affect: Mood normal. Behavior: Behavior normal. Diagnostic Studies / Procedures ELECTROCARDIOGRAMS: No results found for this visit on 11/22/23. LABORATORY STUDIES: Results for orders placed or performed during the hospital encounter of 11/22/23 CBC W/DIFF AUTOMATED Result Value Ref Range WBC 6.55 4.00 - 10.80 x10'3/uL RBC 3.76 (L) 4.10 - 5.40 x10'6/uL HGB 12.6 12.0 - 16.0 G/DL HCT 37.4 36.0 - 47.0 % MCV 99.5 78.0 - 100.0 FL MCH 33.5 (H) 27.0 - 31.0 PG MCHC 33.7 33.0 - 36.0 G/DL RDW 13.8 11.5 - 14.5 % PLT 194 150 - 350 x10'3/uL MPV 9.5 7.4 - 10.4 FL CBC COMMENT NORMAL REFERENCE RANGE NOT ESTABLISHED FOR THE PROPORTIONAL LEUKOCYTE DIFFERENTIAL. NEUTROPHILS % 69.2 % LYMPHOCYTES % 19.8 % MONOCYTES % 7.6 % EOSINOPHILS % 2.6 % BASOPHILS % 0.6 % IMMATURE GRANS % 0.2 % NRBC % 0.0 % ABS. NEUTROPHILS 4.53 1.60 - 8.30 x10'3/uL ABS. LYMPHOCYTES 1.30 0.80 - 4.70 x10'3/uL ABS. MONOCYTES 0.50 0.00 - 1.50 x10'3/uL ABS. EOSINOPHILS 0.17 0.00 - 0.40 x10'3/uL ABS. BASOPHILS 0.04 0.00 - 0.20 x10'3/uL ABS. IMMATURE GRANULOCYTES 0.01 0.00 - 0.03 x10'3/uL ABS. NUCLEATED RBC'S 0.00 0.00 - 0.01 x10'3/uL COMPREHENSIVE METABOLIC PANEL Result Value Ref Range SODIUM S/P/B 141 136 - 145 MMOL/L POTASSIUM S/P/B 3.4 (L) 3.5 - 5.1 MMOL/L CHLORIDE S/P/B 100 98 - 107 MMOL/L CO2 35.2 (H) 21.0 - 32.0 MMOL/L GLUCOSE 82 70 - 99 MG/DL BUN 5 (L) 6 - 24 MG/DL CREATININE S/P/B 3.09 (H) 0.55 - 1.02 MG/DL CALCIUM S/P/B 9.0 8.4 - 10.5 MG/DL BILIRUBIN TOTAL S/P/B 1.0 0.2 - 1.0 MG/DL ALKALINE PHOSPHATASE S/P/B 63 55 - 142 U/L AST 9 (L) 15 - 37 U/L ALT 12 (L) 14 - 59 U/L TOTAL PROTEIN S/P/B 7.0 6.4 - 8.2 G/DL ALBUMIN S/P/B 3.7 3.4 - 5.0 G/DL ANION GAP 5.8 5.0 - 15.0 MMOL/L OSMOLALITY (CALC) 288 MOSM/KG GFR ESTIMATE 15 (L) >89 ML/MIN/1.73 M2 GFR NOTES GFR REFERENCES: TROPONIN, QUANT Result Value Ref Range TROPONIN I HIGH SENSITIVITY 15 0 - 51 ng/L TROPONIN, QUANT Result Value Ref Range TROPONIN I HIGH SENSITIVITY 15 0 - 51 ng/L URINALYSIS Result Value Ref Range COLOR (U) YELLOW TRANSPARENCY CLOUDY SPECIFIC GRAVITY (U) 1.015 1.000 - 1.025 U PH 9.0 (H) 5.0 - 8.0 LEUKOCYTES (U) 1+ (A) NEGATIVE NITRITES NEGATIVE NEGATIVE PROTEIN RANDOM (U) 3+ (A) NEGATIVE GLUCOSE (U) NEGATIVE NEGATIVE KETONES MG/DL (U) NEGATIVE NEGATIVE UROBILINOGEN 0.2 <1.0 EU/DL BILIRUBIN (U) NEGATIVE NEGATIVE BLOOD (U) 1+ (A) NEGATIVE WBC/HPF 0-5 0 - 5 /HPF RBC/HPF 0-5 0 - 5 /HPF EPI/LPF OCCASIONAL /LPF BACTERIA (U) 2+ /HPF IMAGING STUDIES XR CHEST PORTABLE ED Interpretation by Angle Alcantara DO (11/21 580) No gross pneumothorax or pleural effusion, HD catheter noted no gross consolidaitons Final Result by User, [id number] (11/21 1203) [address] [place] [address] Procedure(s): XR CHEST PORTABLE Date of service: 11/22/2023 11:23 AM Provided clinical information: 73 years, Female, Chest pain dizziness. Confusion post dialysis. Procedure and materials: AP portable Comparison studies: December 25, 2022. Findings: Dialysis catheter is present. Proximal tip is present distal superior vena cava. Distal tip is present in the right atrium. Atrial appendage clip is present. Cardiac silhouette is within normal limits. Left lungs expanded clear of any consolidations. The right lower lung are mildly increased initial opacifications that are present. This may relate to interstitial edema or early infectious/atelectatic change. Costophrenic angles are clear. No definite effusion. Right shoulder prosthesis. IMPRESSION: Right lower lung opacification due to atelectasis, infiltrate or mild interstitial edema. Ordered By: ANGLE ALCANTARA Interpreted By: Sincere Lamb MD, 11/22/2023 12:[address] HEAD WO CON Final Result by User, [email or web address] (11/21 115) [facility] [address] [place] [address] DATE: 11/22/2023 11:09 AM EXAMINATION: CT of the head CLINICAL HISTORY: Dizziness and confusion after dialysis. COMPARISON: 12/19/2022 TECHNIQUE: CT examination of the head without contrast was performed. Axial and multiplanar images obtained. A dose lowering technique was used for this procedure, which may include, but is not limited to, dose reduction technique, automated exposure control, the use of iterative reconstruction, and ALARA (As Low As Reasonably Achievable) / Image Gently techniques. FINDINGS: No acute cranial hemorrhage, extra-axial collections, intracranial mass effect, or midline shift. Stable small vessel disease, old infarcts, intracranial vascular calcifications, and volume loss. Stable prominent calcifications in the left-sided basal ganglia/deep oliveira nuclei with associated volume loss and ex vacuo enlargement of the adjacent left lateral ventricle. No definite CT evidence of acute territorial infarction, though MRI would be more sensitive. Calvarium unremarkable. Mastoid air cells clear. Paranasal sinuses clear. Bilateral lens replacements. IMPRESSION: 1. No definite CT evidence of acute intracranial abnormality, as above. Ordered By: ANGLE ALCANTARA Interpreted By: Dann Sarmiento MD, 11/22/2023 11:44 AM ED Course / Medical Decision Making Medical Decision Making Patient is a 73 yo F here for anxiety and 10 minutes of confusion after completing dialysis today Patient afebrile and vitally stable Patient has no complaints, son reports she is at baseline Hx from patient and son chart review by me Exam reassuring 3+ labs and 3 images reviewed by me I consulted pharmacy based on HD and previous urine culture results, goal bactrim single strength bid for 5 days WDX: Anxiety, Uti acute moderate complexity DDX: I considered pulmonary edema, sepsis, ICH but these were not found SDOH: patient has PCP and family support Passed PO and ambulation challenge Patient discharged stable Strict return precautions given All questions answered ED Course as of 11/22/23 1353 Joan Nov 22, 2023 1153 UA and CXR result for dispo [RS] 1220 EKG interpreted by me NSR rate 65 no stemi, artifact from movement present LAFB [RS] 1332 Pharmacy consulted for abx recommendations for UTI [RS] ED Course User Index [RS] Angle Alcantara DO Clinical Impression UTI (urinary tract infection) (Primary) Disposition: Discharge Angle Alcantara DO 11/22/23 1357 * Maggie Nelson RN - 11/22/2023 10:39 AM CDT Pt arrives per ems from dialysis. Pt was approx 10 min from finishing dialysis when staff reports pt became anxious and attempted to take off b/p cuff. Staff reports pt appeared a little confused. Son states pt does get a little confused at home. Pt arrives awake and able to answer questions. Pt states I just don't feel well . documented in this encounter Plan of Treatment [...] Procedure Name Priority Date/Time Associated Diagnosis Comments TROPONIN, QUANT STAT 11/22/2023 1:08 PM CDT HC URINALYSIS AUTO W/MICRO STAT 11/22/2023 12:17 PM CDT XR CHEST PORTABLE STAT 11/22/2023 11: [address] HEAD WO CON STAT 11/22/2023 11:27 AM CDT COMPREHENSIVE METABOLIC PANEL STAT 11/22/2023 11:16 AM CDT CBC W/DIFF AUTOMATED STAT 11/22/2023 11:16 AM CDT TROPONIN, QUANT STAT 11/22/2023 11:16 AM CDT documented in this encounter Results * TROPONIN, QUANT (11/22/2023 1:08 PM CDT) TROPONIN I HIGH SENSITIVITY 15 0 - 51 ng/L 11/22/2023 1:35 PM CDT [facility] 11/22/2023 1:08 PM CDT [facility] LABORATORY Final Result [facility] [address] [place] [address], * (ABNORMAL) URINALYSIS (11/22/2023 12:17 PM CDT) COLOR (U) YELLOW 11/22/2023 12:36 PM CDT [facility] TRANSPARENCY CLOUDY 11/22/2023 12:36 PM CDT [facility] SPECIFIC GRAVITY (U) 1.015 1.000 - 1.025 11/22/2023 12:36 PM CDT [facility] U PH 9.0(H) 5.0 - 8.0 11/22/2023 12:36 PM CDT [facility] Comment:EQUAL TO OR GREATER THAN LEUKOCYTES (U) 1+(A) NEGATIVE 11/22/2023 12:36 PM CDT [facility] NITRITES NEGATIVE NEGATIVE 11/22/2023 12:36 PM CDT [facility] PROTEIN RANDOM (U) 3+(A) NEGATIVE 11/22/2023 12:36 PM CDT [facility] GLUCOSE (U) NEGATIVE NEGATIVE 11/22/2023 12:36 PM CDT [facility] KETONES MG/DL (U) NEGATIVE NEGATIVE 11/22/2023 12:36 PM CDT [facility] UROBILINOGEN 0.2 <1.0 EU/DL 11/22/2023 12:36 PM CDT [facility] BILIRUBIN (U) NEGATIVE NEGATIVE 11/22/2023 12:36 PM CDT [facility] BLOOD (U) 1+(A) NEGATIVE 11/22/2023 12:36 PM CDT [facility] WBC/HPF 0-5 0 - 5 /HPF 11/22/2023 12:36 PM CDT [facility] RBC/HPF 0-5 0 - 5 /HPF 11/22/2023 12:36 PM CDT [facility] EPI/LPF OCCASIONAL /LPF 11/22/2023 12:36 PM CDT [facility] BACTERIA (U) 2+ /HPF 11/22/2023 12:36 PM CDT [facility] URINE, STRAIGHT CATH 11/22/2023 12:17 PM CDT us Angle Alcantara DO URINE ORDERABLES Final Result [facility] [place] [address], * XR CHEST PORTABLE (11/22/2023 11:38 AM CDT) Anatomical Region Laterality Modality Chest Radiographic Sharon ging 11/22/2023 12:0 1 PM CDT Impressions 11/22/2023 12:02 PM CDT IMPRESSION: Right lower lung opacification due to atelectasis, infiltrate or mild interstitial edema. Ordered By: ANGLE ALCANTARA Interpreted By: Sincere Lamb MD, 11/22/2023 12:01 PM Narrative 11/22/2023 12:02 PM CDT [address] [place] [address] Procedure(s): XR CHEST PORTABLE Date of service: 11/22/2023 11:23 AM Provided clinical information: 73 years, Female, Chest pain ?? dizziness. Confusion post dialysis. Procedure and materials: AP portable Comparison studies: December 25, 2022. Findings: ?? Dialysis catheter is present. Proximal tip is present distal superior vena cava. Distal tip is present in the right atrium. Atrial appendage clip is present. Cardiac silhouette is within normal limits. Left lungs expanded clear of any consolidations. The right lower lung are mildly increased initial opacifications that are present. This may relate to interstitial edema or early infectious/atelectatic change. Costophrenic angles are clear. No definite effusion. Right shoulder prosthesis. Procedure Note Sincere Lamb MD - 11/22/2023 [facility] [address] [place] [address] Procedure(s): XR CHEST PORTABLE Date of service: 11/22/2023 11:23 AM Provided clinical information: 73 years, Female, Chest pain dizziness.Confusion post dialysis. Procedure and materials: AP portable Comparison studies: December 25, 2022. Findings: Dialysis catheter is present. Proximal tip is present distal superior venacava. Distal tip is present in the right atrium. Atrial appendage clip ispresent. Cardiac silhouette is within normal limits. Left lungs expanded clear ofany consolidations. The right lower lung are mildly increased initialopacifications that are present. This may relate to interstitial edema orearly infectious/atelectatic change. Costophrenic angles are clear. Nodefinite effusion. Right shoulder prosthesis. IMPRESSION: Right lower lung opacification due to atelectasis, infiltrate or mildinterstitial edema. Ordered By: ANGLE ALCANTARA Interpreted By: Sincere Lamb MD, 11/22/2023 12:01 PM Angle Alcantara DO GENERAL IMAGING Final Result * CT HEAD WO CON (11/22/2023 11:27 AM CDT) Anatomical Region Laterality Modality Head Computed Tomogra phy 11/22/2023 11:4 4 AM CDT Impressions 11/22/2023 11:48 AM CDT IMPRESSION: 1. No definite CT evidence of acute intracranial abnormality, as above. Ordered By: ANGLE ALCANTARA Interpreted By: Dann Sarmiento MD, 11/22/2023 11:44 AM Narrative 11/22/2023 11:48 AM CDT [address] [place] [address] DATE: 11/22/2023 11:09 AM EXAMINATION: CT of the head CLINICAL HISTORY: Dizziness and confusion after dialysis. COMPARISON: 12/19/2022 TECHNIQUE: CT examination of the head without contrast ??was performed. Axial and multiplanar images obtained. A dose lowering technique was used for this procedure, which may include, but is not limited to, dose reduction technique, automated exposure control, the use of iterative reconstruction, and ALARA (As Low As Reasonably Achievable) / Image Gently techniques. FINDINGS: No acute cranial hemorrhage, extra-axial collections, intracranial mass effect, or midline shift. Stable small vessel disease, old infarcts, intracranial vascular calcifications, and volume loss. Stable prominent calcifications in the left- sided basal ganglia/deep oliveira nuclei with associated volume loss and ex vacuo enlargement of the adjacent left lateral ventricle. No definite CT evidence of acute territorial infarction, though MRI would be more sensitive. Calvarium unremarkable. Mastoid air cells clear. Paranasal sinuses clear. Bilateral lens replacements. Procedure Note Dann Sarmiento MD - 11/22/[address] [place] [address] DATE: 11/22/2023 11:09 AM EXAMINATION: CT of the head CLINICAL HISTORY: Dizziness and confusion after dialysis. COMPARISON: 12/19/2022 TECHNIQUE: CT examination of the head without contrast was performed.Axial and multiplanar images obtained. A dose lowering technique was used for this procedure, which may include,but is not limited to, dose reduction technique, automated exposurecontrol, the use of iterative reconstruction, and ALARA (As Low AsReasonably Achievable) / Image Gently techniques. FINDINGS: No acute cranial hemorrhage, extra-axial collections, intracranial masseffect, or midline shift. Stable small vessel disease, old infarcts,intracranial vascular calcifications, and volume loss. Stable prominentcalcifications in the left- sided basal ganglia/deep oliveira nuclei withassociated volume loss and ex vacuo enlargement of the adjacent leftlateral ventricle. No definite CT evidence of acute territorialinfarction, though MRI would be more sensitive. Calvarium unremarkable.Mastoid air cells clear. Paranasal sinuses clear. Bilateral lensreplacements. IMPRESSION: 1. No definite CT evidence of acute intracranial abnormality, as above. Ordered By: ANGLE ALCANTARA Interpreted By: Dann Sarmiento MD, 11/22/2023 11:44 AM Angle Alcantara DO CT Final Result * TROPONIN, QUANT (11/22/2023 11:16 AM CDT) [facility] TROPONIN I HIGH SENSITIVITY 15 0 - 51 ng/L 11/22/2023 11:41 AM CDT [facility] 11/22/2023 11:1 6 AM CDT Angle Alcantara DO LABORATORY Final Result [facility] [address] [place] [address], * (ABNORMAL) COMPREHENSIVE METABOLIC PANEL (11/22/2023 11:16 AM CDT) [facility] SODIUM S/P/B 141 136 - 145 MMOL/L 11/22/2023 11:41 AM CDT [facility] POTASSIUM S/P/B 3.4(L) 3.5 - 5.1 MMOL/L 11/22/2023 11:41 AM CDT [facility] CHLORIDE S/P/B 100 98 - 107 MMOL/L 11/22/2023 11:41 AM CDT [facility] CO2 35.2(H) 21.0 - 32.0 MMOL/L 11/22/2023 11:41 AM CDT [facility] GLUCOSE 82 70 - 99 MG/DL 11/22/2023 11:41 AM CDT [facility] Comment: FASTING GLUCOSE 100 TO 125 MG/DL IS CONSISTENT WITH IMPAIRED FASTING GLUCOSE. FASTING GLUCOSE >125 MG/DL IS CONSISTENT WITH DIABETES. RANDOM GLUCOSE >200 MG/DL WITH HYPERGLYCEMIC SYMPTOMS IS CONSISTENT WITH DIABETES. PER ADA GUIDELINES BUN 5(L) 6 - 24 MG/DL 11/22/2023 11:41 AM [facility] CREATININE S/P/B 3.09(H) 0.55 - 1.02 MG/DL 11/22/2023 11:41 AM [facility] CALCIUM S/P/B 9.0 8.4 - 10.5 MG/DL 11/22/2023 11:41 AM [facility] BILIRUBIN TOTAL S/P/B 1.0 0.2 - 1.0 MG/DL 11/22/2023 11:41 AM [facility] [facility] Comment: THIS ASSAY IS NOT RECOMMENDED FOR PATIENTS UNDERGOING TREATMENT WITH ELTROMBOPAG DUE TO THE POTENTIAL FOR FALSELY ELEVATED RESULTS. ALKALINE PHOSPHATASE S/P/B 63 55 - 142 U/L 11/22/2023 11:41 AM [facility] AST 9(L) 15 - 37 U/L 11/22/2023 11:41 AM [facility] ALT 12(L) 14 - 59 U/L 11/22/2023 11:41 AM [facility] TOTAL PROTEIN S/P/B 7.0 6.4 - 8.2 G/DL 11/22/2023 11:41 AM [facility] ALBUMIN S/P/B 3.7 3.4 - 5.0 G/DL 11/22/2023 11:41 AM [facility] ANION GAP 5.8 5.0 - 15.0 MMOL/L 11/22/2023 11:41 AM [facility] OSMOLALITY (CALC) 288 MOSM/KG 024 11:41 AM [facility] Comment:REFERENCE RANGE NOT ESTABLISHED GFR ESTIMATE 15(L) >89 ML/MIN/1. 73 M2 11/22/2023 11:41 AM [facility] GFR NOTES GFR REFERENCE S: 11/22/2023 11:41 AM [facility] Comment: THE ESTIMATED GFR IS [...] ml/min/1.73 m2 G5,KIDNEY FAILURE: <15 ml/min/1.73 m2 11/22/2023 11:1 6 AM CDT [facility] LABORATORY Final Result [facility] [address] [place] [address], * (ABNORMAL) CBC W/DIFF AUTOMATED (11/22/2023 11:16 AM CDT) WBC 6.55 4.00 - 10.80 x10'3/uL 11/22/2023 11:22 AM CDT [facility] RBC 3.76(L) 4.10 - 5.40 x10'6/uL 11/22/2023 11:22 AM CDT [facility] HGB 12.6 12.0 - 16.0 G/DL 11/22/2023 11:22 AM CDT [facility] HCT 37.4 36.0 - 47.0 % 11/22/2023 11:22 AM CDT [facility] MCV 99.5 78.0 - 100.0 FL 11/22/2023 11:22 AM CDT [facility] MCH 33.5(H) 27.0 - 31.0 PG 11/22/2023 11:22 AM CDT [facility] MCHC 33.7 33.0 - 36.0 G/DL 11/22/2023 11:22 AM CDT [facility] RDW 13.8 11.5 - 14.5 % 11/22/2023 11:22 AM CDT [facility] PLT 194 150 - 350 x10'3/uL 11/22/2023 11:22 AM CDT [facility] MPV 9.5 7.4 - 10.4 FL 11/22/2023 11:22 AM CDT [facility] CBC COMMENT NORMAL REFERENCE RANGE NOT ESTABLISHED FOR THE PROPORTIONAL LEUKOCYTE DIFFERENTIAL. 11/22/2023 11:22 AM CDT [facility] NEUTROPHILS % 69.2 % 11/22/2023 11:22 AM CDT [facility] LYMPHOCYTES % 19.8 % 11/22/2023 11:22 AM CDT [facility] MONOCYTES % 7.6 % 11/22/2023 11:22 AM CDT [facility] EOSINOPHILS % 2.6 % 11/22/2023 11:22 AM CDT [facility] BASOPHILS % 0.6 % 11/22/2023 11:22 AM CDT [facility] IMMATURE GRANS % 0.2 % 11/22/19 11:22 AM CDT [facility] NRBC % 0.0 % 11/22/2023 11:22 AM CDT [facility] ABS. NEUTROPHILS 4.53 1.60 - 8.30 x10'3/uL 11/22/2023 11:22 AM CDT [facility] ABS. LYMPHOCYTES 1.30 0.80 - 4.70 x10'3/uL 11/22/2023 11:22 AM CDT [facility] ABS. MONOCYTES 0.50 0.00 - 1.50 x10'3/uL 11/22/2023 11:22 AM CDT [facility] ABS. EOSINOPHILS 0.17 0.00 - 0.40 x10'3/uL 11/22/2023 11:22 AM CDT [facility] ABS. BASOPHILS 0.04 0.00 - 0.20 x10'3/uL 11/22/2023 11:22 AM CDT [facility] ABS. IMMATURE GRANULOCYTES 0.01 0.00 - 0.03 x10'3/uL 11/22/2023 11:22 AM CDT [facility] ABS. NUCLEATED RBC'S 0.00 0.00 - 0.01 x10'3/uL 11/22/2023 11:22 AM CDT [facility] 11/22/2023 11:1 6 AM CDT Angle Alcantara DO LABORATORY Final Result [facility] [address] [place] [id number], documented in this encounter Visit Diagnoses Diagnosis UTI (urinary tract infection)- Primary Urinary tract infection, site not specified documented in this encounter Care Teams In Flight Refueling Manager Relationship Specialty Start Date End Date Jasson Cueva MD [address] [place] [phone] PCP - General FAMILY PRACTICE 11/03/18 Huber Milligan MD [address] [place] [phone] Consulting Physician Vascular Neurology 04/30/19 Norm Hopkins MD [address] [place] [address] Consulting Physician CLINICAL CARDIAC ELECTROPHYSIOLOGY 04/30/19 documented as of this encounter
--- OUTSIDE RECORDS SUMMARY | 2024-03-19 18:38 | XMS_ITS | Encounter Summary ---
Author Organization [facility] Address [address] [place] [address]. [place], [place] [id number] [place] [phone] Care Team Providers Care Warp Doffer Name Role Phone Jasson Cueva MD Primary Care Provider [phone] Huber Milligan MD Unavailable [phone] Norm Hopkins MD Unavailable [phone] Encounter Details Date Type Department Care Team (Latest Contact Info) Description 02/20/2022 Travel Social History Tobacco Use Types Packs/Day Years Used Date Smoking Tobacco: Former Cigarettes Smokeless Tobacco: Never Alcohol Use Standard Drinks/Week Comments Not Currently 0 (1 standard drink = 0.6 oz pur e alcohol) Comments No Sex and Gender Information Value Date Recorded Sex Assigned at Not on file Legal 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 HYDROGEOLOGIST Gender Identity Not on file Sexual Orientation Not on file COVID-19 Exposure Response Date Recorded In the last 10 days, have yo u been in contact with someone who was confirmed or suspected to have Coronavirus/COVID-19? No / Unsure 02/20/2022 12:51 PM HYDROGEOLOGIST documented as of this encounter Functional Status * RETIRED Are you deaf or do you have serious difficulty hearing Answer Date of Assessment Author Status No 12/21/2021 10:33 PM CDT Acti ve * RETIRED Are you blind or do you have serious difficulty seeing, even when wearing glasses? Answer Date of Assessment Author Status No 12/21/2021 10:33 PM CDT Acti ve * Do you have serious difficulty walking or climbing stairs? Answer Date of Assessment Author Status No 12/21/2021 10:33 PM CDT Sepideh Kevin R N Active * Do you have difficulty dressing or bathing? Answer Date of Assessment Author Status No 12/21/2021 10:33 PM CDSepideh Juárez R N Active * Because of a physical, mental, or emotional condition, do you have difficulty doing errands alone such as visiting a doctor's office or shopping? Answer Date of Assessment Author Status Yes 12/21/2021 10:33 PM CDT Sepideh Kevin R N Active documented as of this encounter Mental Status * Because of a physical, mental, or emotional condition, do you have serious difficulty concentrating, remembering, or making decisions? Answer Entry Date Author Status Yes 12/21/2021 10:33 PM CDSepideh Juárez R N Active documented in this encounter [...] on filedocumented in this encounter Care Teams Warp Doffer Relationship Specialty Start Date End Date Jassno Cueva MD [address] [place] [phone] PCP - General FAMILY PRACTICE 11/03/18 Huber Milligan MD [address] [place] [phone] Consulting Physician Vascular Neurology 04/30/19 Norm Hopkins MD [address] [place] [phone] Consulting Physician CLINICAL CARDIAC ELECTROPHYSIOLOGY 04/30/19 documented as of this encounter
--- OUTSIDE RECORDS SUMMARY | 2024-03-19 18:38 | XMS_ITS | Encounter Summary ---
Author Organization [facility] Address [address] [place] [address]. [place], [place] [address] [place] [address] Care Team Providers Care Family Life Educator Name Role Phone Jasson Cueva MD Primary Care Provider [phone] Huber Milligan MD Unavailable [phone] Norm Hopkins MD Unavailable [phone] Encounter Details Date Type Department Care Team (Late st Contact Info) Description 03/05/2023 Scan [facility] Home Care [facility] [address] [place] [address] Scanned, [facility] Social History Tobacco Use Types Packs/Day Years [...] often do you attend chur ch or sabianism services? Never 12/20/2022 Do you belong to any clubs o r organizations such as amish groups, unions, fraternal or athletic groups, or [...] and heating? Not hard at all 12/20/2022 [facility] - [...] place to sleep or slept in a retirement (including now)? No 12/20/2022 Comments No Sex and Gender Information Value Date Recorded Sex Assigned at Not on file Legal 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 METAL MOULDER Gender Identity Not on file Sexual Orientation [...] on filedocumented in this encounter Care Teams Family Life Educator Relationship Specialty Start Date End Date Jasson Cueva MD [address] [place] [phone] PCP - General FAMILY PRACTICE 11/03/18 Huber Milligan MD [address] [place] [phone] Consulting Physician Vascular Neurology 04/30/19 Norm Hopkins MD [address] [place] [address] Consulting Physician CLINICAL CARDIAC ELECTROPHYSIOLOGY 04/30/19 documented as of this encounter
--- OUTSIDE RECORDS SUMMARY | 2024-03-19 18:38 | XMS_ITS | Encounter Summary ---
Author Organization [facility] Address [address] [place] [address]. [place], [place] [id number] [place] [address] Care Team Providers Care Hole Puncher Strap Name Role Phone Jasson Cueva MD Primary Care Provider [phone] Huber Milligan MD Unavailable [phone] Norm Hopkins MD Unavailable [phone] Reason for Referral * Imaging (Routine) - Closed Specialty Diagnoses / Procedures Referred By Contneha coronado Referred To Contact RADIOLOGY Diagnoses Abnormal mammogram Procedures US BREAST FRANC BIRAD LTD Leydi Sherman MD [address] [place] [phone] Phone: tel: fax: Referral ID Status Reason Start Date Expiration Date V isits Requested Visits Authorized [id number] Closed Ultrasound 02/23/2022 02/23/2023 1 1 EATION TEACHER Encounter Details Date Type Department Care Team (Late st Contact Info) Description 03/06/2022 9:30 AM RECREATION TEACHER - 03/06/2022 11:59 PM RECREATION TEACHER Hospital Encounter [facility] [address] [facility] [facility] [address] [place] [address] Leydi Sherman MD [address] [place] [phone] Discharge Disposition: Home or Self Care (Routine Discharge) Social History Tobacco Use Types Packs/Day Years Used Date Smoking Tobacco: Former Cigarettes Smokeless Tobacco: Never Alcohol Use Standard Drinks/Week Comments Not Currently 0 (1 standard drink = 0.6 oz pur e alcohol) Comments No Sex and Gender Information Value Date Recorded Sex Assigned at Not on file Legal 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 RECREATION TEACHER Gender Identity Not on file Sexual Orientation Not on file COVID-19 Exposure Response Date Recorded In the last 10 days, have yo u been in contact with someone who was confirmed or suspected to have Coronavirus/COVID-19? No / Unsure 03/06/2022 9:31 AM RECREATION TEACHER documented as of this encounter Functional Status [...] CDT Sepideh Kevin R N Active * Because of a [...] Date Author Status Yes 12/21/2021 10:33 PM CDT Sepideh Kevin R N Active documented in this encounter Medications at Time of Discharge amLODIPine 5 MG tablet 1 tablet (5 mg total) daily. 12/21/2020 aspirin EC 81 MG tablet Take 1 tablet (81 mg total) by mouth daily. vitamin D3, cholecalciferol, 5000 UNITS capsule Take 1 capsule (125 mcg total) by mouth daily. furosemide (LASIX) 20 MG tablet Take 1 tablet (20 mg total) by mouth daily. 11/23/2021 01/06/2023 gabapentin (NEURONTIN) 600 MG tabletIndications :Neuropathic pain Take 1 tablet (600 mg total) by mouth 3 (three) times daily. 90 tablet 3 01/30/2022 01/06/2023 metoprolol succinate ER 50 MG 24 hr tablet Take 1 tablet (50 mg total) by mouth daily. 2 11/08/2018 01/06/2023 documented as of this encounter Plan of [...] Soto RN documented as of this encounter Procedures Procedure Name Priority Date/Time Associated Diagnosis Comments US BREAST FRANC BIRAD LTD Routine 03/06/2022 10:55 AM RECREATION TEACHER Abnormal mammogram MG DIAG W XAVIER BILAT DIGI Routine 03/06/2022 9:56 AM RECREATION TEACHER Abnormal mammogram documented in this encounter Results * US BREAST FRANC ONOFFMIX (?)AD LTD (03/06/2022 10:55 AM RECREATION TEACHER) Anatomical Region Laterality Modality Breast Bilateral Ultrasound, Radi ographic Imaging 03/06/2022 10:5 6 AM RECREATION TEACHER Narrative 03/06/2022 11:00 AM RECREATION TEACHER Examination: Bilateral diagnostic mammogram, bilateral breast ultrasound [id number] Clinical history: Additional imaging for bilateral breast abnormalities noted on screening mammogram 02/20/2022 Comparison: 02/20/2022 Technique: Digital diagnostic mammography of both breasts and ultrasound of both breasts was performed. Breast tomosynthesis acquisitions were obtained bilaterally. This study was read with the assistance of a computer-aided detection system. Tissue density: The breast tissue is heterogeneously dense, which may obscure small masses. Findings: Bilateral diagnostic mammogram: The additional images confirm the presence of a 1 cm mass in the anteromedial right breast. Area of possible distortion in the superior right breast seen only on MLO view appears to be largely compressibleb consistent with benign etiology. There are persistent small round to oval mass lesions in the retroareolar left breast and in the lateral left breast. Ultrasound performed for further evaluation. ?? Examination: Bilateral breast ultrasound Findings: Images targeting the anteromedial right breast demonstrate a 9 mm in diameter simple cyst. This corresponds with the mammographic mass. There is no solid mass lesion nor sharp acoustic shadowing in this region. Images targeting the retroareolar left breast demonstrate a small hypoechoic lesion at 1:00 position 1 cm from the nipple. This measures 9 mm in maximum diameter and has a sonographic appearance favoring slightly complex cyst with through transmission of sound and no significant vascularity. A separate lesion is noted at 3:00 in the left breast 4 cm from the nipple. This measures up to 8 mm in diameter and has an appearance again suggesting a slightly complex cyst. This corresponds with the lateral left breast abnormality. No other significant abnormality. IMPRESSION: 1. Mammographic abnormalities in the anteromedial right breast, retroareolar left breast and lateral left breast have imaging findings favoring benign cysts. Recommendation: 1: Diagnostic mammogram and ultrasound ??bilateral ??in 6 months Overall assessment: ACR BI-RADS Category 3 - Probably benign. Ordered By: LEYDI SHERMAN Interpreted By: Simon Brock MD, 03/06/2022 10:56 AM us Leydi Sherman MD ULTRASOUND Final Resu lt documented in this encounter Visit Diagnoses Diagnosis Abnormal mammogram Abnormal mammogram, unspecified documented in this encounter Care Teams Hole Puncher Strap Relationship Specialty Start Date End Date Jasson Cueva MD [address] [place] [phone] PCP - General FAMILY PRACTICE 11/03/18 Huber Milligan MD [address] [place] [phone] Consulting Physician Vascular Neurology 04/30/19 Norm Hopkins MD [address] [place] [address] Consulting Physician CLINICAL CARDIAC ELECTROPHYSIOLOGY 04/30/19 documented as of this encounter
--- OUTSIDE RECORDS SUMMARY | 2024-03-19 18:38 | XMS_ITS | Encounter Summary ---
Author Organization [facility] Address [address] [place] [address]. [place], [place] [address] [place] [address] Care Team Providers Care Slide Maker Name Role Phone Jasson Cueva MD Primary Care Provider [phone] Huber Milligan MD Unavailable [phone] Norm Hopkins MD Unavailable [phone] Encounter Details Date Type Department Care Team (Latest Contact Info) Description 03/06/2022 Travel Social History Tobacco Use Types Packs/Day Years Used Date Smoking Tobacco: Former Cigarettes Smokeless Tobacco: Never Alcohol Use Standard Drinks/Week Comments Not Currently 0 (1 standard drink = 0.6 oz pur e alcohol) Comments No Sex and Gender Information Value Date Recorded Sex Assigned at Not on file Legal 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 WARP PICKER Gender Identity Not on file Sexual Orientation Not on file COVID-19 Exposure Response Date Recorded In the last 10 days, have yo u been in contact with someone who was confirmed or suspected to have Coronavirus/COVID-19? No / Unsure 03/06/2022 9:31 AM WARP PICKER documented as of this encounter Functional Status [...] on filedocumented in this encounter Care Teams Slide Maker Relationship Specialty Start Date End Date Jasson Cueva MD [address] [place] [phone] PCP - General FAMILY PRACTICE 11/03/18 Huber Milligan MD [address] [place] [phone] Consulting Physician Vascular Neurology 04/30/19 Norm Hopkins MD [address] [place] [phone] Consulting Physician CLINICAL CARDIAC ELECTROPHYSIOLOGY 04/30/19 documented as of this encounter
--- OUTSIDE RECORDS SUMMARY | 2024-03-19 18:38 | XMS_ITS | Encounter Summary ---
Author Organization [facility] Address [address] [place] [address]. [place], [place] [id number] [place] [id number] Care Team Providers Care Office Agent Name Role Phone Jasson Cueva MD Primary Care Provider [phone] Huber Milligan MD Unavailable [phone] Norm Hopkins MD Unavailable [phone] Reason for Referral * Imaging (Urgent) - Closed Specialty Diagnoses / Procedures Referred By Contac t Referred To Contact Procedures IR TUNNELED CENT CATH INSERT IR CONSULT Kandi Ruth DO Phone: tel: fax: Referral ID Status Reason Start Date Expiration Date Visits Re quested Visits Authorized [id number] Closed 12/28/2022 12/29/2023 1 1 * Imaging (Urgent) - Closed Specialty Diagnoses / Procedures Referred By Contac t Referred To Contact RADIOLOGY Procedures US RETROPERITONEAL LTD Kandi Ruth DO Phone: tel: fax: Referral ID Status Reason Start Date Expiration Date Visits Re quested Visits Authorized [id number] Closed 12/27/2022 12/28/2023 1 1 * Imaging (Urgent) - Closed Specialty Diagnoses / Procedures Referred By Contac t Referred To Contact RADIOLOGY Procedures USE ECHOCARDIOGRAM Markapuram, Fidelina, MD Phone: tel: fax: Referral ID Status Reason Start Date Expiration Date Visits Re quested Visits Authorized [id number] Closed 12/26/2022 12/27/2023 1 1 * (Routine) - Canceled Specialty Diagnoses / Procedures Referred By Contac t Referred To Contact Procedures PT Eval and Treat Uyen Sutton, PT [address] [place] [address] Phone: tel: fax: Referral ID Status Reason Start Date Expiration Date V isits Requested Visits Authorized [id number] Canceled 12/21/2022 12/22/2023 1 1 * (Routine) - Canceled Specialty Diagnoses / Procedures Referred By Contac t Referred To Contact Procedures OT Eval and Christopher Xiao III, MD [address] [place] [address] Phone: tel: fax: Referral ID Status Reason Start Date Expiration Date V isits Requested Visits Authorized [id number] Canceled 12/20/2022 12/21/2023 1 1 * (Routine) - Closed Specialty Diagnoses / Procedures Referred By Contac t Referred To Contact Procedures PT Eval and Christopher Xiao III, MD [address] [place] [address] Phone: tel: fax: Referral ID Status Reason Start Date Expiration Date Visits Re quested Visits Authorized [id number] Closed 12/20/2022 12/21/2023 1 1 Reason for Visit * Auth/Cert (Routine) Specialty Diagnoses / Procedures Referred By Contac t Referred To Contact Diagnoses Acute renal failure superimposed on stage 4 chronic kidney disease, unspecified acute renal failure type (CMS/HCC HHS/HCC) acute on chronic renal disease Acute renal failure superimposed on stage 4 chronic kidney disease, unspecified acute renal failure type (HHS/HCC) (CMS/HCC) Procedures NONE Christopher Roberts III, MD [address] [place] [address] Phone: tel: fax: Referral ID Status Reason Start Date Expiration Date Visits Re quested Visits Authorized [id number] 1 1 Encounter Details Date Type Department Care Team (Latest Contact Info) Description 12/20/2022 2:29 AM CDT - 01/06/2023 12:49 PM CDT Hospital Encounter [address] [address] Christopher Roberts III, MD [address] [place] [address] Toi Zimmerman MD [address] [place] [address] Rigo Trevino MD [address] [place] [address] Francisco Soto MD [address] [place] [address] Fidelina Owens MD [address] [place] [address] Mandi Salmon MD [address] [place] [address] Discharge Disposition: Alf Facility Social History Tobacco Use Types Packs/Day Years [...] often do you attend chur ch or faith services? Never 12/20/2022 Do you belong to any clubs o r organizations such as advent groups, unions, fraternal or athletic groups, or [...] and heating? Not hard at all 12/20/2022 [facility] [place] [facility] - Occupational Stress [...] place to sleep or slept in a penitentiary (including now)? 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 Gender Identity Not on file Sexual Orientation Not on file documented as of this encounter Last Filed Vital Signs Vital Sign Reading Time Taken Comments Blood Pressure 112/69 01/06/2023 11:35 AM CDT Pulse 87 01/06/2023 11:35 AM CDT Temperature 36.3 ??C (97.3 ??F) 01/06/2023 10:40 AM C DT Respiratory Rate 19 01/06/2023 10:40 AM CDT Oxygen Saturation 91% 01/05/2023 10:32 PM CDT Inhaled Oxygen Concentration - - Weight 84.5 kg (186 lb 4.6 oz) 12/20/2022 2:38 A M CDT Height 170.2 cm (5' 7 ) 12/20/2022 2:38 AM CDT Body Mass Index 29.18 12/20/2022 2:38 AM CDT documented in this encounter Functional Status * Question Answer Date of Assessment Author Status Do you have serious difficulty walking or climbing stairs? Yes 12/20/2022 2:20 AM Kapil Anthony RN A ctive * Question Answer Date of Assessment Author Status Do you have difficulty dressing or bathing? Yes 12/20/2022 2:20 AM Kapil Anthony RN Active Because of a physical, mental, or emotional condition, do you have difficulty doing errands alone such as visiting a doctor's office or shopping? Yes 12/20/2022 2:20 AM Kapil Anthony RN Ac tive * Are you deaf or do you have serious difficulty hearing Answer Date of Assessment Author Status No 12/20/2022 2:20 AM Kapil Anthony RN Active * Are you blind or do you have serious difficulty seeing, even when wearing glasses? Answer Date of Assessment Author Status No 12/20/2022 2:20 AM Kapil Anthony RN Active * Do you have serious difficulty walking or climbing stairs? Answer Date of Assessment Author Status Yes 12/20/2022 2:20 AM Kapil Anthony RN Active * Do you have difficulty dressing or bathing? Answer Date of Assessment Author Status Yes 12/20/2022 2:20 AM Kapil Anthony RN Active * Because of a physical, mental, or emotional condition, do you have difficulty doing errands alone such as visiting a doctor's office or shopping? Answer Date of Assessment Author Status Yes 12/20/2022 2:20 AM Kapil Anthony RN Active documented as of this encounter Mental Status * Question Answer Entry Date Author Status Because of a physical, mental, or emotional condition, do you have serious difficulty concentrating, remembering, or making decisions? No 12/20/2022 2:20 AM Kapil Anthony RN Active * Because of a physical, mental, or emotional condition, do you have serious difficulty concentrating, remembering, or making decisions? Answer Entry Date Author Status No 12/20/2022 2:20 AM Kapil Anthony RN Active documented in this encounter Discharge Summaries * Mandi Salmon MD - 01/06/2023 8:27 AM CDT Images from the original note were not included. Discharge Summary Trisha Lawrence female 1950 Admit Date: 12/20/2022 2:29 AM Discharge date and time: 01/06/23 Admitting Physician: Christopher Roberts III, MD Primary Care Physician: JASSON CUEVA MD Discharge Physician: Dr Mandi Salmon MD, FACP Admission Diagnosis: Acute renal failure superimposed on stage 4 chronic kidney disease, unspecified acute renal failuretype (HHS/HCC) (CMS/HCC) [N17.9, N18.4] Acute renal failure superimposed on chronic kidney disease (CMS/HCC) [N17.9, N18.9] Discharge Diagnosis: GREG on CKD stage IV started on hemodialysis Chronic CHF diastolic UTI Reactive hepatitis B panel reactive hepatitis B core total antibody and hepatitis B surface antibody needs follow-up with PCP and as outpatient to ID to be referred by PCP Discharged Condition: Stable Code Status: Full Code Hospital Course: Patient seen and examined by me today 01/06/23 and stable for discharge Briefly discharge summary Patient is a pleasant 72-year-old female with past medical history of hypertension with hypertensive nephropathy CKD stage III-IV former smoker probable COPD CVA admitted with feeling lousy more forgetful than usual fall at home. Patient diagnosed with GREG on CKD stage IV hyperphosphatemia nephrology was consulted patient was started on hemodialysis hemodialysis has been arranged at the facility patient tolerating dialysis well blood pressure has been marginal decreased her blood pressure medication dose. Patient also had chronic CHF with preserved ejection fraction improved with dialysis continue Lasix every 48 hours. Patient had UTI was on Rocephin completed 3 days. PCP to refer to ID patient has reactive hepatitis B panel which is hepatitis B core total antibody and hepatitis B surfaceantibody. Stable for discharge Consults: Nephrology [facility] Discharge Exam: Filed Vitals: 01/05/23 2232 01/06/23 0732 01/06/23 0737 01/06/23 0800 BP: 105/86 127/81 109/74 107/72 Pulse: 86 81 87 64 Resp: 18 20 Temp: 98.2 ??F (36.8 ??C) 97.5 ??F (36.4 ??C) TempSrc: Oral Temporal SpO2: 91% Weight: Height: Discharge Medications: Medication List START taking these medications Morning Afternoon Evening Bedtime As Needed gabapentin 100 MG capsule Commonly known as: NEURONTIN Take 1 capsule (100 mg total) by mouth 3 (three) times daily for 60 days. Last time this was given: 100 mg on January 05, 2023 8:15 PM Signed by: Dr. Francisco Soto MD Replaces: gabapentin 600 MG tablet HYDROcodone-acetaminophen 5-325 MG tablet Commonly known as: NORCO Take 1 tablet by mouth every 6 (six) hours as needed. Indications: Acute Pain < 7 Day Supply Signed by: Dr. Ajit Salmon MD CHANGE how you take these medications Morning Afternoon Evening Bedtime As Needed furosemide 20 MG tablet Commonly known as: LASIX Take 1 tablet (20 mg total) by mouth every other day for 30 days. Last time this was given: 20 mg on January 04, 2023 8:39 AM Signed by: Dr. Ajit Salmon MD What changed: when to take this metoprolol succinate ER 25 MG 24 hr tablet Commonly known as: TOPROL-XL Take 1 tablet (25 mg total) by mouth daily for 30 days. Last time this was given: Ask your nurse or doctor Signed by: Dr. Ajit Salmon MD What changed: medication strength how much to take CONTINUE taking these medications Morning Afternoon Evening Bedtime As Needed amLODIPine 5 MG tablet Commonly known as: NORVASC 1 tablet (5 mg total) daily. Last time this was given: 5 mg on January 03, 2023 8:18 AM aspirin EC 81 MG tablet Commonly known as: ECOTRIN Take 1 tablet (81 mg total) by mouth daily. Last time this was given: Ask your nurse or doctor vitamin D3 (cholecalciferol) 125 mcg capsule Take 1 capsule (125 mcg total) by mouth daily. STOP taking these medications gabapentin 600 MG tablet Commonly known as: NEURONTIN Replaced by: gabapentin 100 MG capsule Disposition: discharged to shelter facility Follow UP Instructions : Activity & DME Activity as tolerated Activity per rehab recommendations Jasson Cueva MD [address] [place] [phone] Follow up in 1 week(s) Nephrology Follow up in 2 day(s) for HD as scheduled Time spent on discharge: Patient seen and examined by me today 01/06/23 and stable for discharge. Ipersonally spent a total of 39 minutes on the patient on this date of service including both [id number]-isfp and odd-yocw-yh-face time excluding any separately reportable servicesSigned MANDI SALMON MD documented in this encounter Medications at Time of Discharge amLODIPine 5 MG tablet 1 tablet (5 mg total) daily. 12/21/2020 aspirin EC 81 MG tablet Take 1 tablet (81 mg total) by mouth daily. metoprolol succinate ER (TOPROL-XL) 25 MG 24 hr tablet Take 1 tablet (25 mg total) by mouth daily for 30 days. 30 tablet 01/06/2023 vitamin D3, cholecalciferol, 5000 UNITS capsule Take 1 capsule (125 mcg total) by mouth daily. furosemide (LASIX) 20 MG tablet Take 1 tablet (20 mg total) by mouth every other day for 30 days. 15 tablet 01/06/2023 02/05/2023 gabapentin (NEURONTIN) 100 MG capsule Take 1 capsule (100 mg total) by mouth 3 (three) times daily for 60 days. 90 capsule 1 01/02/2023 03/03/2023 HYDROcodone-aceta minophen (NORCO) 5-325 MG tabletIndications :Acute Pain < 7 Day Supply Take 1 tablet by mouth every 6 (six) hours as needed. Indications: Acute Pain < 7 Day Supply 10 tablet 01/05/2023 11/22/2023 documented as of this encounter Progress Notes * VERN Triplett - 01/06/2023 11:35 AM CDT Attempted to see pt at 10:55, per RN, pt just returning from dialysis & will d/c to different hospital this afternoon, however ok'd session. Personal Lines Advisor offered toileting but pt declines need at this time. Offered LB dressing to prepare for d/c however pt does not have clothing present in room. OT to hold tx at this time d/t pt leaving soon. Thank you. * Seth Cardona RN - 01/06/2023 10:46 AM CDT 01/06/23 1040 Post Treatment Note Post Treatment Note 3 hours Tx completed, 900ml net UF removed, catheter care done per policy, endorsed to the primary nurse. Vital Signs Temp 97.3 ??F (36.3 ??C) Temp src Temporal Pulse 78 Heart Rate Source Monitor Resp 19 BP 131/86 MAP Calculated 101 MM HG BP Location Right wrist BP Method Automatic Patient Position Lying Cuff size Adult Regular Post Treatment Weight Post-Treatment Weight (kg) 77.1 kg (169 lb 15.6 oz) Additonal Post Treatment Information Time Treatment Ended 1037 Dialyzer Cleared Good Blood Processed 30.2 Net UF removed 900 Post Treatment Access Catheter Locking Solution saline * Adan Horton MD - 01/06/2023 9:26 AM CDT [facility] Nephrology Progress Note Trisha Lawrence is a 72-year-old female patient. Seen for greg HPI 72-year-old lady with history of chronic kidney disease stage IV, COPD, depression, dyslipidemia, hypertension, ischemic stroke, short memory loss, neuropathy who was admitted on 12/20 due to lethargyand confusion. Patient found to have GREG on CKD. Patient has CKD stage IV, last year creatinine was2.8. On presentation creatinine was found to be 4.7 and BUN 78. I was consulted to manage GREG on CKD. Patient used to follow-up with Dr. Fung, she reports that she transferred care to [facility] at [place], [place]. Subjective 01/04 No acute issues overnight No new complaints Patient was seen during dialysis, tolerating treatment well ROS:negative 10 points review of system all negative Current Facility-Administered Medications Medication Dose Route Frequency Provider Last Rate Last Admin acetaminophen (TYLENOL) tablet 650 mg 650 mg Oral Q4H PRN Christopher Roberts III, MD 650 mg at 12/23/22 0920 albuterol sulfate HFA 108 (90 Base) MCG/ACT inhaler 2 puff 2 puff Inhalation Q6H PRN Rigo Trevino MD 2 puff at 12/28/22 0938 amLODIPine (NORVASC) tablet 5 mg 5 mg Oral Daily Toi Zimmerman MD 5 mg at 01/03/23 0818 aspirin chewable tablet 81 mg 81 mg Oral Daily Cici Rojas NP 81 mg at 01/05/23 0948 furosemide (LASIX) tablet 20 mg 20 mg Oral Q48H Fidelina Owens MD 20 mg at 01/04/23 0839 gabapentin (NEURONTIN) capsule 100 mg 100 mg Oral TID Rigo Trevino MD 100 mg at 01/05/232014 guaiFENesin ER (MUCINEX) 12 hr tablet 600 mg 600 mg Oral BID Francisco Soto MD 600 mg at 01/05/232014 heparin (porcine) injection 5,000 Units 5,000 Units Subcutaneous 2 times per day Christopher Roberts III, MD 5,000 Units at 01/05/232014 hydrALAZINE (APRESOLINE) injection 10 mg 10 mg Intravenous Q6H PRN Fidelina Owens MD HYDROcodone-acetaminophen (NORCO) 5-325 MG tablet 1 tablet 1 tablet Oral Q4H PRN Christopher Roberts III, MD 1 tablet at 12/27/22 1628 ipratropium-albuterol (DUONEB) 0.5-2.5 (3) MG/3ML nebulizer solution 3 mL 3 mL Nebulization 2 timesdaily Fidelina Owens MD 3 mL at 01/05/23 1853 metoprolol succinate ER (TOPROL-XL) 24 hr tablet 25 mg 25 mg Oral Daily Ajit Salmon MD naLOXone (NARCAN) injection 0.4 mg 0.4 mg Intravenous PRN Christopher Roberts III, MD normal saline 0.9 % flush 3-10 mL 3-10 mL Intravenous PRN Christopher Roberts III, MD ondansetron (ZOFRAN) injection 4 mg 4 mg Intravenous Q8H PRN Christopher Roberts III, MD polyethylene glycol (GLYCOLAX) packet 17 g 17 g Oral Daily PRN Christopher Roberts III, MD 17 g at 01/05/232019 polyvinyl alcohol (LIQUIFILM/ARTIFICIAL TEARS) 1.4 % ophthalmic solution 1 drop 1 drop Both Eyes PRN Francisco Soto MD 1 drop at 12/23/22 1523 Review of patient's allergies indicates: No Known Allergies Principal Problem: Acute renal failure superimposed on stage 4 chronic kidney disease, unspecified acute renal failuretype ([facility]/HCC) ([facility]) SNOMED CT(R): [id number]-FV-[id number] RENAL FAILURE Active Problems: Acute renal failure superimposed on chronic kidney disease ([facility]) SNOMED CT(R): [id number] RENAL FAILURE Filed Vitals: 01/06/23 0737 01/06/23 0800 01/06/23 0830 01/06/23 0900 BP: 109/74 107/72 101/51 114/53 Pulse: 87 64 86 68 Resp: Temp: TempSrc: SpO2: Weight: Height: Last 3 Recorded Weights 12/20/22 0238 Weight: 84.5 kg (186 lb 4.6 oz) No intake or output data in the 24 hours ending 01/06/23 0926 Physical Exam: GENERAL: No acute distress, breathing comfortably, 3 L nasal cannula EYES: Normal conjunctiva. ENT: Neck supple, head normocephalic. Buccal mucosa is moist. LUNG: Clear to auscultation bilaterally, no wheezes, no crackles. Nonlabored respirations. Oxygen via nasal cannula. CVS: Regular rate rhythm, S1 and S2 normal ABDOMEN: Soft, nondistended, Nontender EXT: no lower Ext edema. SKIN: Skin color, texture, turgor normal. No rashes or lesions NEURO: Alert, awake, No gross neuro deficit PSYCH: Appropriate mood and affect ACCESS: Right IJ tunneled dialysis catheter LABs Recent Labs Lab 12/31/22 1011 01/01/23 0422 01/02/23 0400 01/03/23 0417 01/04/23 0624 01/05/23 0417 01/06/23 0444 NA 140 139 139 137 138 135* -- K 4.6 4.2 4.2 3.5 3.7 4.1 -- CL 104 108* 108* 102 106 97* -- CO2 26.7 23.9 22.7 27.7 25.6 29.6 -- AGAP 9.3 7.1 8.3 7.3 6.4 8.4 -- BUN 23* 32* 38* 25* 39* 28* -- CR 3.05* 3.90* 4.04* 3.26* 4.37* 4.07* -- GLU 99 103 105 105 111* 115* -- CA 9.1 8.6 8.8 9.0 8.7 9.0 -- MAGNESIUM 2.2 2.2 2.2 2.4 2.4 2.5 2.4 PHOS 4.9 5.5* 5.9* 5.0* 5.8* 5.9* 5.1* 6.7* Recent Labs Lab 12/31/22 1011 01/01/23 0422 01/02/23 0400 01/03/237 WBC 9.05 8.27 9.83 8.19 RBC 4.07* 3.80* 3.90* 3.91* HGB 12.5 11.5* 11.7* 11.8* HCT 39.2 35.6* 36.9 37.2 MCV 96.3 93.7 94.6 95.1 MCH 30.7 30.3 30.0 30.2 MCHC 31.9* 32.3* 31.7* 31.7* PLT 208 211 233 204 RDW 13.8 13.6 13.6 13.6 MPV 10.9* 10.4 10.5* 10.5* Assessment/Plan: 72-year-old lady with history of chronic kidney disease stage IV, COPD, depression, dyslipidemia, hypertension, ischemic stroke, short memory loss, neuropathy who was admitted on 12/20 due to lethargyand confusion. Patient found to have GREG on CKD. 1. GREG on CKD stage IV -Patient has CKD stage IV ; she reports that she transferred care to nephrology group at [place], [place]. -Last year creatinine was 2.8. Patient's son reports that her autos disassembler has discussed dialysis with them. -Per son, her EGFR has ranged 20-25 in the past year. -On presentation creatinine was found to be 4.7 and BUN 78. -CT abdomen:small bilateral kidneys with subcentimeter cystic foci demonstrating internal density. No hydronephrosis. -discussed (Dr banks) with patient's son, Zack, who agreed to HD initiation given no improvement in creatinine nor symptoms -HD START DATE 12/29/2022 - we will tentatively plan on a TTS schedule going forward. HD Cont HD today -Patient was seen during dialysis, tolerating treatment -Appreciate shelter case manager help in outpatient dialysis placement 2.HTN -Blood Pressure controlled on amlodipine and metoprolol 3.Anemia of chronic disease Hemoglobin stable at 11.8. No indication for IESHA 4.FEN Stable 5.Renal osteodystrophy Phosphorus 6.7. Start Renvela 6. Disposition. Stable. Thank you for allowing me to participate in the care of this patient. We will continue to follow this patient with you. Please contact us with further questions. ADAN HORTON MD 01/06/2023 * Verna Parra RN - 01/06/2023 8:26 AM CDT Pt to dc to [facility], [place] @ 11am today. Pt will need to be in the front lobby. Nurse to nurse- [phone] Facility will transport patient to dialysis M, W, F @12:00 beginning 01.08.23 MIN set halo to attending at 0829 to make sure Pt is ready for dc and she is and orders are in. MIN called bedside nurse to share information is in for dc and orders are ready. Pt is in dialysis at this time. Min called dialysis and she should be done by ~ 1030. MIN called backto nurse to share this and ask if this gives her enough time to get pt to the lobby for an [address] ride and she said she can do that. DISREGARD ABOVE DC PLAN: MIN spoke with our advanced manufacturing associate and he had no ride set for pt today. MIN was not able to find any notes pertaining to transport today that had changed. CM told by our advanced manufacturing associate other arrangements were to be made. CM called and found DMT has pt on the schedule for 1300 today and will bean picker machine operator in her room CM has a PCS form and will place in chart and on chart for DMT. CM called back to bedside nurse and updated on dc.. Min has spoken with son Zack to update on dc plan and confirmed location. * Raine Blount - 01/05/2023 3:29 PM CDT At [place] patient will transfer to [place], [place] @ 11am. Pt will need to be in the front lobby. Nurse to nurse- [phone] Facility will transport patient to dialysis M, W, F @12:00 beginning 01.08.23 * Mandi Salmon MD - 01/05/2023 12:13 PM CDT Progress note Cc GREG denies confusion fall SUBJECTIVE Patient seen and examined by me today denies any chest pain or shortness of breath blood pressure little marginal this morning no fever no chills tolerated dialysis yesterday ROS : GENERAL: Fatigue present no fever Neurological: No numbness or weakness Musculoskeletal: No joint pain or tenderness or swelling Skin :no rash or edema or erythema Otherwise neg for 12 systems except mentioned in subjective above OBJECTIVE Wt Readings from Last 3 Encounters: 12/20/22 84.5 kg (186 lb 4.6 oz) 12/19/22 77.1 kg (170 lb) 12/22/21 79.8 kg (176 lb) Temp: 98.1 ??F (36.7 ??C) BP Readings from Last 3 Encounters: 01/05/23 107/73 12/20/22 (!) 144/79 12/22/21 (!) 136/93 Pulse Readings from Last 3 Encounters: 01/05/23 86 12/20/22 79 12/22/21 84 PHYSICAL EXAMINATION: General Appearance: Moderately built and nourished. Alert,oriented to time ,place and Person. Head: atraumatic, normocephalic. Mild distress EXTR oxygen was on and off Eyes: Pupils equal and reactive to light. No discharge.no nystagmus. Ears: Normal Tympanic membrane and external ear canal . Throat: Lips, mucosa, and tongue,teeth and gums normal. Neck: Supple, symmetrical, trachea midline, no adenopathy; thyroid: No enlargement/tenderness/nodules; no carotid bruit or JVD Lungs: Clear to auscultation bilaterally, respirations unlabored . No wheeze or rhonchi present. Nochest wall tenderness. Heart: Regular rate and rhythm, S1 and S2 normal, no murmur, rub or gallop . Abdomen: Soft,non-tender, bowel sounds active all four quadrants, no masses, no organomegaly detected. Extremities: Extremities normal, atraumatic, no cyanosis or edema or clubbing Pulses: 2+ and symmetric all extremities Lymph nodes: Cervical, supraclavicular, and axillary nodes normal Neurologic: CNII-XII intact. Normal strength in the upper extremities, normal in both lower extremities, sensation and reflexes normal throughout.no disdiadochokinesia LABS: Recent Labs 01/03/23 0417 WBC 8.19 HGB 11.8* HCT 37.2 MCV 95.1 PLT 204 RBC 3.91* Recent Labs 01/03/2341601/04/2362301/05/23416 CO2 27.7 25.6 29.6 CL 102 106 97* GLU 105 111* 115* K 3.5 3.7 4.1 NA 137 138 135* BUN 25* 39* 28* Intake/Output Summary (Last 24 hours) at 01/05/2023 1213 Last data filed at 01/04/2023 1358 Gross per 24 hour Intake -- Output 1200 ml Net -1200 ml RADIOLOGY : REVIEWED MEDICATIONS Scheduled medications amLODIPine 5 mg Oral Daily aspirin 81 mg Oral Daily furosemide 20 mg Oral Q48H gabapentin 100 mg Oral TID guaiFENesin ER 600 mg Oral BID heparin (porcine) 5,000 Units Subcutaneous 2 times per day ipratropium-albuterol 3 mL Nebulization 2 times daily metoprolol succinate ER 50 mg Oral Daily Infusion PRN acetaminophen, albuterol sulfate HFA, hydrALAZINE, HYDROcodone-acetaminophen, naLOXone, normal saline, ondansetron, polyethylene glycol, polyvinyl alcohol @LASTMICRO@ ASSESSMENT /PLAN Trisha aLwrence is a 72-year-old female with the following history as recorded in EpicCare: Problem List Items Addressed This Visit Other Closed fracture of right proximal humerus - Primary Relevant Medications HYDROcodone-acetaminophen (NORCO) 5-325 MG tablet Patient is a pleasant 72-year-old female with past medical history of hypertension with hypertensive nephropathy CKD stage III-IV former smoker probable COPD CVA admitted with feeling lousy more forgetful than usual fall at home. Patient diagnosed with GREG on CKD stage IV hyperphosphatemia Baseline creatinine was 2.8 last year Nephrology consulted status post tunneled catheter by IR currently on hemodialysis Nephrology following Case management requesting dialysis schedule to be changed to Sunday it will be easier for facility to take her for dialysis they will discuss with nephrology Right arm or shoulder pain X-ray did not show any acute fracture prior arthroplasty PT OT recommendation noted to swing bed needs to follow-up as outpatient with orthopedic Chronic CHF exacerbation with preserved ejection fraction with shortness of breath Improved with dialysis EF 65% Continue Lasix every 48 hours Hypertension decrease beta-daniel to half the dose 25 mg daily UTI UA positive started on Rocephin 1013 completed 3 days of Rocephin Reactive hepatitis B panel Reactive hepatitis B core total antibody and hepatitis B surface antibody follow-up with PCP as outpatient with ID DVT prophylaxis continue subcu heparin Await placement Labs reviewed. Imaging reviewed. Medications reviewed. Rotary Cutter Feeder notes reviewed. Case was discussed w/ the patient and/or POA. All questions were answered & concerns addressed. I personally spent a total of 36 minutes on the day of the encounter. This includes xcxh-wt-deaj and szz-sfnr-wr-face time I provided on the day of the encounter & excludes time spent performing separately reportable services. MANDI SALMON MD 12:13 PM 01/05/2023 * Kapil Sam RN - 01/04/2023 11:26 PM CDT Problem: Pain Goal: Patient's pain/discomfort is manageable Description: Assess and monitor patient's pain using appropriate pain scale. Collaborate with interdisciplinary team and initiate plan and interventions as ordered. Re-assess patient's pain level 30 - 60 minutes after pain management intervention. Outcome: Progressing Problem: Safety Goal: Patient will be injury free during hospitalization Description: Assess and monitor vitals signs, neurological status including level of consciousness and orientation. Assess patient's risk for falls and implement fall prevention plan of care and interventions per hospital policy. Ensure arm band on, uncluttered walking paths in room, adequate room lighting, call light and overbed table within reach, bed in low position, wheels locked, side rails up per policy, and non-skid footwear provided. Outcome: Progressing Problem: Daily Care Goal: Daily care needs are met Description: Assess and monitor ability to perform self care and identify potential discharge needs. Outcome: Progressing * CURLY Minaya - 01/04/2023 3:55 PM CDT Attempted to see pt for OT session. Pt sitting upright in bed eating lunch. OT will check back later as time/schedule allows. * Kika Pantoja RN - 01/04/2023 3:50 PM CDT Received call from Maria R at [facility]. They have confirmed chair time for [facility]. I informed her per notes patient is accepted at [facility]. She is going to reroute request to [facility]. ([facility]). Flow sheet faxed to maria r. * Seth Cardona RN - 01/04/2023 2:03 PM CDT 01/04/23 1358 Post Treatment Note Post Treatment Note 3.5 hours Tx completed, 1200ml net UF removed, catheter care done per policy, endorsed to the primary rn. Vital Signs Temp 97.9 ??F (36.6 ??C) Temp src Temporal Pulse 75 Heart Rate Source Monitor Resp 18 BP 114/70 MAP Calculated 85 MM HG BP Location Right wrist BP Method Automatic Patient Position Lying Cuff size Adult Radial Post Treatment Weight Post-Treatment Weight (kg) 80.1 kg (176 lb 9.4 oz) Additonal Post Treatment Information Time Treatment Ended 1353 Dialyzer Cleared Good Blood Processed 66.7 Net UF removed 1200 Post Treatment Access Catheter Locking Solution saline * Raine Blount - 01/04/2023 1:13 PM CDT Pt accepted at [facility] after dialysis set up. CM called [facility] [phone] but facility is not open today.. CM spoke to son Zack and informed him of above and is good with DC plan. * Mandi Salmon MD - 01/04/2023 1:08 PM CDT Progress note Cc GREG denies confusion fall SUBJECTIVE Patient seen and examined by me today ROS : GENERAL: Fatigue present no fever Neurological: No numbness or weakness Musculoskeletal: No joint pain or tenderness or swelling Skin :no rash or edema or erythema Otherwise neg for 12 systems except mentioned in subjective above OBJECTIVE Wt Readings from Last 3 Encounters: 12/20/22 84.5 kg (186 lb 4.6 oz) 12/19/22 77.1 kg (170 lb) 12/22/21 79.8 kg (176 lb) Temp: 98.2 ??F (36.8 ??C) BP Readings from Last 3 Encounters: 01/04/23 91/68 12/20/22 (!) 144/79 12/22/21 (!) 136/93 Pulse Readings from Last 3 Encounters: 01/04/23 76 12/20/22 79 12/22/21 84 PHYSICAL EXAMINATION: General Appearance: Moderately built and nourished. Alert,oriented to time ,place and Person. Head: atraumatic, normocephalic. Eyes: Pupils equal and reactive to light. No discharge.no nystagmus. Ears: Normal Tympanic membrane and external ear canal . Throat: Lips, mucosa, and tongue,teeth and gums normal. Neck: Supple, symmetrical, trachea midline, no adenopathy; thyroid: No enlargement/tenderness/nodules; no carotid bruit or JVD Lungs: Clear to auscultation bilaterally, respirations unlabored . No wheeze or rhonchi present. Nochest wall tenderness. Heart: Regular rate and rhythm, S1 and S2 normal, no murmur, rub or gallop . Abdomen: Soft,non-tender, bowel sounds active all four quadrants, no masses, no organomegaly detected. Extremities: Extremities normal, atraumatic, no cyanosis or edema or clubbing Pulses: 2+ and symmetric all extremities Lymph nodes: Cervical, supraclavicular, and axillary nodes normal Neurologic: CNII-XII intact. Normal strength in the upper extremities, normal in both lower extremities, sensation and reflexes normal throughout.no disdiadochokinesia LABS: Recent Labs 01/02/2339901/03/23416 WBC 9.83 8.19 HGB 11.7* 11.8* HCT 36.9 37.2 MCV 94.6 95.1 PLT 233 204 RBC 3.90* 3.91* Recent Labs 01/02/230 01/03/237 ALT 28 -- AST 19 -- CO2 22.7 27.7 CL 108* 102 GLU 105 105 K 4.2 3.5 NA 139 137 BUN 38* 25* No intake or output data in the 24 hours ending 01/04/23 5511 RADIOLOGY : REVIEWED MEDICATIONS Scheduled medications amLODIPine 5 mg Oral Daily aspirin 81 mg Oral Daily furosemide 20 mg Oral Q48H gabapentin 100 mg Oral TID guaiFENesin ER 600 mg Oral BID heparin (porcine) 5,000 Units Subcutaneous 2 times per day ipratropium-albuterol 3 mL Nebulization 2 times daily metoprolol succinate ER 50 mg Oral Daily Infusion PRN acetaminophen, albuterol sulfate HFA, hydrALAZINE, HYDROcodone-acetaminophen, naLOXone, normal saline, ondansetron, polyethylene glycol, polyvinyl alcohol @LASTMICRO@ ASSESSMENT /PLAN Trisha Lawrence is a 72-year-old female with the following history as recorded in Health system: Problem List Items Addressed This Visit None Patient is a pleasant 72-year-old female with past medical history of hypertension with hypertensive nephropathy CKD stage III-IV former smoker probable COPD CVA admitted with feeling lousy more forgetful than usual fall at home. Patient diagnosed with GREG on CKD stage IV hyperphosphatemia Baseline creatinine was 2.8 last year Nephrology consulted status post tunneled catheter by IR currently on hemodialysis Nephrology following Case management requesting dialysis schedule to be changed to Sunday it will be easier for facility to take her for dialysis they will discuss with nephrology Right arm or shoulder pain X-ray did not show any acute fracture prior arthroplasty PT OT recommendation noted to swing bed needs to follow-up as outpatient with orthopedic Chronic CHF exacerbation with preserved ejection fraction with shortness of breath Improved with dialysis EF 65% Continue Lasix every 48 hours Hypertension continue current medications stable UTI UA positive started on Rocephin 1013 completed 3 days of Rocephin Reactive hepatitis B panel Reactive hepatitis B core total antibody and hepatitis B surface antibody follow-up with PCP as outpatient with ID DVT prophylaxis continue subcu heparin Await placement Labs reviewed. Imaging reviewed. Medications reviewed. Rotary Cutter Feeder notes reviewed. Case was discussed w/ the patient and/or POA. All questions were answered & concerns addressed. I personally spent a total of 38 minutes on the day of the encounter. This includes epng-xm-rbza and nlq-nylh-iy-face time I provided on the day of the encounter & excludes time spent performing separately reportable services. MANDI SALMON MD 1:08 PM 01/04/2023 * Jose L Carlson, OT - 01/04/2023 8:05 AM CDT The below POC initiated 12/21/22 to be followed until 01/16/23 at that time POC to be re-assessed and modified if needed. Pt will complete dressing with Independent sitting EOB or in chair to increase safety and independence with ADLs. Pt will complete all grooming and self-feeding with Independent to increased safety and independence with ADLs. Pt will complete ADLs at sink with Independent to increase independence with ADLs. Pt will complete toileting hygiene and clothing management with Independent to increase safety and independence with ADLs. Pt to complete bathing with Independent seated in chair/EOB to increase independence with ADLs. Pt will complete bed mobility with Independent with HOB flat to increase safety and independence with functional transfers. Pt will complete transfers all surfaces to/from all surfaces with Modified [place] using wheeled walker to increase functional mobility and transfers. Pt will participate within skilled therapy services for 20-30 minutes with 1-2 rest breaks to increase independence with ADLs and functional transfers. Pt will increase dynamic balance sitting on soft surface to complete ADLs with Independent for 20-30 minutes to increase safety and independence with ADLs and functional transfers. Pt will increase dynamic standing balance standing at sink/dressing completing ADLs with Modified [place] with wheeled walker for 20-30 minutes to increase safety and independence with ADLs and functional transfers. * Oscar Fung MD - 01/04/2023 6:23 AM CDT [facility] Nephrology Progress Note Trisha Lawrence is a 72-year-old female patient. Seen for greg HPI 72-year-old lady with history of chronic kidney disease stage IV, COPD, depression, dyslipidemia, hypertension, ischemic stroke, short memory loss, neuropathy who was admitted on 12/20 due to lethargyand confusion. Patient found to have GREG on CKD. Patient has CKD stage IV, last year creatinine was2.8. On presentation creatinine was found to be 4.7 and BUN 78. I was consulted to manage GREG on CKD. Patient used to follow-up with Dr. Fung, she reports that she transferred care to [facility] at [place], [place]. Subjective 01/04 No acute issues overnight No new complaints ROS:negative Denies fever, chills, or sweats. Denies any chest pain or shortness of breath. Denies any nausea, vomiting, or diarrhea. Current Facility-Administered Medications Medication Dose Route Frequency Provider Last Rate Last Admin acetaminophen (TYLENOL) tablet 650 mg 650 mg Oral Q4H PRN Christopher Roberts III, MD 650 mg at 12/23/22 0920 albuterol sulfate HFA 108 (90 Base) MCG/ACT inhaler 2 puff 2 puff Inhalation Q6H PRN Rigo Trevino MD 2 puff at 12/28/22 0938 amLODIPine (NORVASC) tablet 5 mg 5 mg Oral Daily Toi Zimmerman MD 5 mg at 01/03/23 0818 aspirin chewable tablet 81 mg 81 mg Oral Daily Cici Rojas NP 81 mg at 01/03/23 0818 furosemide (LASIX) tablet 20 mg 20 mg Oral Q48H Fidelina Owens MD 20 mg at 01/02/23 1343 gabapentin (NEURONTIN) capsule 100 mg 100 mg Oral TID Rigo Trevino MD 100 mg at 01/03/23 2049 guaiFENesin ER (MUCINEX) 12 hr tablet 600 mg 600 mg Oral BID Francisco Soto MD 600 mg at 01/03/23 204 heparin (porcine) injection 5,000 Units 5,000 Units Subcutaneous 2 times per day Christopher Roberts III, MD 5,000 Units at 01/03/23 2047 hydrALAZINE (APRESOLINE) injection 10 mg 10 mg Intravenous Q6H PRN Fidelina Owens MD HYDROcodone-acetaminophen (NORCO) 5-325 MG tablet 1 tablet 1 tablet Oral Q4H PRN Christopher Roberts III, MD 1 tablet at 12/27/22 1628 ipratropium-albuterol (DUONEB) 0.5-2.5 (3) MG/3ML nebulizer solution 3 mL 3 mL Nebulization 2 timesdaily Fidelina Owens MD 3 mL at 01/03/23 1839 metoprolol succinate ER (TOPROL-XL) 24 hr tablet 50 mg 50 mg Oral Daily Toi Zimmerman MD 50 mg at 01/03/23 0818 naLOXone (NARCAN) injection 0.4 mg 0.4 mg Intravenous PRN Christopher Roberts III, MD normal saline 0.9 % flush 3-10 mL 3-10 mL Intravenous PRN Christopher Roberts III, MD ondansetron (ZOFRAN) injection 4 mg 4 mg Intravenous Q8H PRN Christopher oRberts III, MD polyethylene glycol (GLYCOLAX) packet 17 g 17 g Oral Daily PRN Christopher Roberts III, MD polyvinyl alcohol (LIQUIFILM/ARTIFICIAL TEARS) 1.4 % ophthalmic solution 1 drop 1 drop Both Eyes PRN Francisco Soto MD 1 drop at 12/23/22 1523 No Known Allergies Principal Problem: Acute renal failure superimposed on stage 4 chronic kidney disease, unspecified acute renal failuretype (HHS/HCC) (CMS/HCC) SNOMED CT(R): WLLON-KW-DOULRZG RENAL FAILURE Active Problems: Acute renal failure superimposed on chronic kidney disease (CMS/HCC) SNOMED CT(R): UMAVH-IR-SIIWMZE RENAL FAILURE Filed Vitals: 01/02/23 2024 01/03/23 0758 01/03/23 2030 01/03/232030 BP: 109/80 105/73 (!) 134/115 113/59 Pulse: 85 78 82 81 Resp: Temp: 97.9 ??F (36.6 ??C) 98.1 ??F (36.7 ??C) 98.1 ??F (36.7 ??C) TempSrc: Oral Oral Oral SpO2: 93% 97% 94% 92% Weight: Height: Last 3 Recorded Weights 12/20/22 023 Weight: 84.5 kg (186 lb 4.6 oz) No intake or output data in the 24 hours ending 01/04/23 06 Physical Exam: GENERAL: No acute distress, breathing comfortably, 3 L nasal cannula EYES: Normal conjunctiva. ENT: Neck supple, head normocephalic. Buccal mucosa is moist. LUNG: Clear to auscultation bilaterally, no wheezes, no crackles. Nonlabored respirations. Oxygen via nasal cannula. CVS: Regular rate rhythm, S1 and S2 normal ABDOMEN: Soft, nondistended, Nontender EXT: no lower Ext edema. SKIN: Skin color, texture, turgor normal. No rashes or lesions NEURO: Alert, awake, No gross neuro deficit PSYCH: Appropriate mood and affect ACCESS: Right IJ tunneled dialysis catheter LABs Recent Labs Lab 12/29/22 0526 12/30/22 0342 12/31/22 1011 01/01/23 0422 01/02/23 0400 01/03/23 0417 NA 141 141 140 139 139 137 K 4.7 4.6 4.6 4.2 4.2 3.5 CL 112* 107 104 108* 108* 102 CO2 22.0 25.0 26.7 23.9 22.7 27.7 AGAP 7.0 9.0 9.3 7.1 8.3 7.3 BUN 51* 39* 23* 32* 38* 25* CR 4.15* 3.74* 3.05* 3.90* 4.04* 3.26* GLU 109* 110* 99 103 105 105 CA 8.3* 8.9 9.1 8.6 8.8 9.0 MAGNESIUM 2.4 2.3 2.2 2.2 2.2 2.4 PHOS 5.9* 4.7 4.9 5.5* 5.9* 5.0* Recent Labs Lab 12/29/22 0526 12/30/22 0342 12/31/22 1011 01/01/23 0422 01/02/23 0400 01/03/23 0417 WBC 8.54 8.03 9.05 8.27 9.83 8.19 RBC 3.87* 3.98* 4.07* 3.80* 3.90* 3.91* HGB 11.6* 12.2 12.5 11.5* 11.7* 11.8* HCT 36.5 37.3 39.2 35.6* 36.9 37.2 MCV 94.3 93.7 96.3 93.7 94.6 95.1 MCH 30.0 30.7 30.7 30.3 30.0 30.2 MCHC 31.8* 32.7* 31.9* 32.3* 31.7* 31.7* PLT 224 246 208 211 233 204 RDW 13.9 13.9 13.8 13.6 13.6 13.6 MPV 10.2 10.9* 10.9* 10.4 10.5* 10.5* Assessment/Plan: 72-year-old lady with history of chronic kidney disease stage IV, COPD, depression, dyslipidemia, hypertension, ischemic stroke, short memory loss, neuropathy who was admitted on 12/20 due to lethargyand confusion. Patient found to have GREG on CKD. 1. GREG on CKD stage IV -Patient has CKD stage IV ; she reports that she transferred care to nephrology group at [place], [place]. -Last year creatinine was 2.8. Patient's son reports that her autos disassembler has discussed dialysis with them. -Per son, her EGFR has ranged 20-25 in the past year. -On presentation creatinine was found to be 4.7 and BUN 78. -CT abdomen:small bilateral kidneys with subcentimeter cystic foci demonstrating internal density. No hydronephrosis. -discussed (Dr banks) with patient's son, Zack, who agreed to HD initiation given no improvement in creatinine nor symptoms -HD START DATE 12/29/2022 - we will tentatively plan on a TTS schedule going forward. HD Cont HD today -Outpatient dialysis placement pending. 2.HTN -Blood Pressure controlled on amlodipine and metoprolol 3.Anemia of chronic disease Hemoglobin stable at 11.7. No indication for IESHA 4.FEN Bicarb of 22.7 5.Renal osteodystrophy Calcium of 8.9 and phosphorus of 5.9, will monitor phosphorus and may need to start a binder 6. Disposition. Stable. Thank you for allowing me to participate in the care of this patient. We will continue to follow this patient with you. Please contact us with further questions. OSCAR FUNG MD 01/04/2023 * Ashwin Moya RN - 01/04/2023 12:31 AM CDT Problem: Reduced risk for falls/injury Goal: Reduced Risk for Falls/Injury Outcome: Progressing Problem: Safety Goal: Patient will be injury free during hospitalization Description: Assess and monitor vitals signs, neurological status including level of consciousness and orientation. Assess patient's risk for falls and implement fall prevention plan of care and interventions per hospital policy. Ensure arm band on, uncluttered walking paths in room, adequate room lighting, call light and overbed table within reach, bed in low position, wheels locked, side rails up per policy, and non-skid footwear provided. Outcome: Progressing Problem: Daily Care Goal: Daily care needs are met Description: Assess and monitor ability to perform self care and identify potential discharge needs. Outcome: Progressing * CURLY Minaya - 01/03/2023 6:11 PM CDT Attempted to see pt for OT session. Pt supine in bed sleeping upon entering room. Pt call light wason. Pt woke to name being called and did not know her call light was on. Pt immediately fell back asleep and started snoring. OT will check back later as time/schedule allows. * Raine Blount - 01/03/2023 2:57 PM CDT Pt was accepted at [facility]. CM spoke to patient [facility] Makenna, Facility liaison, spoke to son who was upset and said he didn't want his mother going to [facility]. CM had asked patient earlier in day her preference of facilities and patient listed [facility]. CM then spoke to son, Zack, who was upset with CM's call stating how do you people run a hospitallike this . Explained patient is alert and oriented at this time and able to make decisions. Son asking if referral can be sent to [facility]- referral sent. * Carlos Herrera, COMMUNITY CENTER WORKER - 01/03/2023 12:54 PM CDT PT Treatment Discharge Recommendation: Swing bed unit DME equipment recommendation: 2 wheeled walker Activity Recommendation for supervisor matrix: up with assist of 1,gt belt and walker . 01/03/23 1241 Therapy Visit Ordering Provider Christopher Roberts III, MD Subjective RN gavepermission to see pt.Pt willing to try Reason for admission Pt admitted to hospital after a fall at home; acute renal failure supimposed on stage 4 chronic kidney disease......Therapy orders: Eval and Treat......PMH: CVA with R sided residual deficits, CKD, COPD, depression, displaced R proximal humeral fx, HLD, neuropathy, and UTI. Verified Two Patient Identifiers Yes Patient consents to therapy Yes Acute Inpatient PT Time Calculation PT Start Time 0903 PT Stop Time 0930 PT Time Calculation (min) 27 min Precautions General Precautions Fall Risk;Chair Alarm;Multiple lines Instructed on Precautions Yes;Verbalizes understanding Other tele, IV Home Living Home Living Comments Per eval, pt lives alone in a one-story home with 4 ALBERT with bilateral rails. Pt has a tub shower with grab bars and shower chair and standard toilet. Prior to admission, patientambulated household distances and completed ADLs independently. Pt does not leave home, and states she would need assistance to ascend/descend stairs. Pt has a cane and a walker at home. Her son lives nearby and is home in the evenings. Pain Pain Yes Pain Score Did not rate Location lt ankle with mobility Interventions Re-positioning;Relaxation;Re-direction;Informed RN Activity Tolerance Activity Tolerance Comments Limited by acute weakness and rt ankle pain and rt quadrant pain aroundribs Cognition Overall Cognitive Status WFL Arousal/Alertness Appropriate responses to stimuli Attention Span Appears intact Memory Appears intact Orientation Level Oriented X4 Following Commands Follows all commands and directions without difficulty Safety Judgment Good awareness of safety precautions Awareness of Errors Good awareness of errors made Deficits Fully aware of deficits Problem Solving Able to problem solve independently Comments alert and oriented but starts to ask a question and then states never mind I forgot Pty forgetful at times Motor Planning Appears intact Perseveration Not present Initiation Appears intact Bed Mobility Supine to Sit SBA/supervision;Modified independence Other (Comment) head of bed flat TRANSFERS Sit to Stand SBA/supervision;Contact guard assist Other (Comment) Pt transfers sit to/from stand from the bed and recliner chair Gait Gait Assistance Contact guard assist Assistive Device 2 Wheeled walker Distance Ambulated (ft) 50 ft (50 feet and 20 feet) Other (Comment) pt amb with step to gt pattern with the 2 wheeled walker.She started to c/o rt ankle pain and dragging her rt foot.Pt fatigued.and then cues to bean picker machine operator her lt foot Balance Sitting - Static Independent Sitting - Dynamic Independent Standing - Static CGA;Support of both upper extremities Standing - Dynamic CGA;Support of both upper extremities Other (Comment) Pt fatigues quickly but able to work through her fatigue PT Assessment PT Assessment Pt continues to progress with bed mobility ,transfers and amb distance this date.During amb, her rt ankle started to hurt and then she dragged her foot.Cues to bean picker machine operator her foot and addressed this with Dr who would look into it. Pt limited by fatigue only but worked through her pain .Recommend swing bed Discharge Recommendation PT Recommendation Swing bed unit PT Equipment Recommended 2 Wheeled walker Plan PT Treatments/Interventions Gait Training;Therapeutic Exercises;Therapeutic Activities;Patient/family training Progress Slow progress, decreased activity tolerance PT Frequency 5 times/week PT - Next Appointment 01/03/23 If this is the last treatment note,it will serve as the discharge summary Yes End of Session End of Session Safety Chair alarm set/activated;Call light within reach;Nursing aware of session End of Session Comment Pt is up in the chair with all needs in reach and chair alrm on Education: Primary Learners Name: Trisha Lawrence Primary Language of learner: Moldovan Patient was educated on precautions transfers balance bed mobility gait safety joint protection. Education was completed one to one verbal hands-on this date. Preference of learning new concepts one to one verbal hands-on Barriers to education this date were fatigue anxious physical impairment. Response to education this date demos with verbal cues needs reinforcement needs follow up needs assistance. * Francisco Soto MD - 01/03/2023 11:11 AM CDT [facility] Hospitalist Progress note Chief Complaint: GREG SUBJECTIVE: Pt seen and examined No new complaints ROS: All other systems reviewed and negative except above Blood pressure 105/73, pulse 78, temperature 97.9 ??F (36.6 ??C), temperature source Oral, resp. rate 16, height 1.702 m (5' 7 ), weight 84.5 kg (186 lb 4.6 oz), SpO2 97 %. Physical Exam Constitutional: Appearance: She is well-developed. HENT: Head: Normocephalic. Eyes: Pupils: Pupils are equal, round, and reactive to light. Cardiovascular: Rate and Rhythm: Normal rate. Heart sounds: Normal heart sounds. Pulmonary: Breath sounds: Normal breath sounds. Comments: Bilateral mild Rales heard Abdominal: General: Bowel sounds are normal. Palpations: Abdomen is soft. Tenderness: There is no abdominal tenderness. Musculoskeletal: Cervical back: Normal range of motion. Comments: Not able to lift right arm above shoulder level, decreased range of movement in the rightshoulder Skin: General: Skin is warm and dry. Neurological: Mental Status: She is alert and oriented to person, place, and time. Cranial Nerves: No cranial nerve deficit. Psychiatric: Mood and Affect: Mood normal. LABS:. Recent Labs 01/01/23 0422 01/02/23 0400 01/03/23 0417 WBC 8.27 9.83 8.19 HGB 11.5* 11.7* 11.8* HCT 35.6* 36.9 37.2 MCV 93.7 94.6 95.1 PLT 211 233 204 RBC 3.80* 3.90* 3.91* Recent Labs Lab 12/31/22 1011 01/01/23 0422 01/02/23 0400 01/03/23 0417 NA 140 139 139 137 K 4.6 4.2 4.2 3.5 CL 104 108* 108* 102 CO2 26.7 23.9 22.7 27.7 AGAP 9.3 7.1 8.3 7.3 BUN 23* 32* 38* 25* CR 3.05* 3.90* 4.04* 3.26* GLU 99 103 105 105 CA 9.1 8.6 8.8 9.0 TP 6.7 6.1* 6.3* -- ALB 3.0* 2.8* 2.9* 3.0* TBIL 0.5 0.5 0.5 -- ALKP 92 89 91 -- AST 29 23 19 -- ALT 24 23 28 -- Recent Labs Lab 12/29/22 0526 INR 0.9 Intake/Output Summary (Last 24 hours) at 01/03/2023 1111 Last data filed at 01/02/2023 1126 Gross per 24 hour Intake 360 ml Output 1000 ml Net -640 ml RADIOLOGY : REVIEWED MEDICATIONS Scheduled medications amLODIPine 5 mg Oral Daily aspirin 81 mg Oral Daily furosemide 20 mg Oral Q48H gabapentin 100 mg Oral TID guaiFENesin ER 600 mg Oral BID heparin (porcine) 5,000 Units Subcutaneous 2 times per day ipratropium-albuterol 3 mL Nebulization 2 times daily metoprolol succinate ER 50 mg Oral Daily Infusion PRN acetaminophen, albuterol sulfate HFA, hydrALAZINE, HYDROcodone-acetaminophen, naLOXone, normal saline, ondansetron, polyethylene glycol, polyvinyl alcohol ASSESSMENT/PLAN: GREG on CKD stage IV Hyperphosphatemia Last year baseline creatinine 2.8 Reviewed renal ultrasound done, findings noted Initially was on IV fluids, discontinued now Nephrology on board, s/p right IJ tunneled catheter placed by IR 12/29, received HD 12/29, 12/30 Creatinine trending up to 3.9, phosphorus 5.5 today Avoid nephrotoxins Monitor BMP in a.m. Right arm/shoulder pain Previous history of right shoulder surgery Reviewed x-ray of right shoulder, no acute findings, prior arthroplasty noted Pain medications as needed PT/OT evaluation, recommending swing bed Recommend outpatient follow-up with orthopedics Shortness of breath HFpEF Hypertension Reviewed echocardiogram, EF 65% Continue amlodipine, metoprolol Continue Lasix 20 mg every 48 hours IV hydralazine as needed Continue aspirin UTI Urinalysis positive for infection, started on IV Rocephin 12/29, urine cultures negative, received 3 days of IV Rocephin, stop IV Rocephin today Reactive hepatitis B panel Reactive hepatitis B core total antibody and hepatitis B surface antibody Recommend outpatient follow-up with PCP/ID DVT prophylaxis Subcu heparin Discussed with RN on the plan PT/OT evaluated and recommending swing bed, discussed with shelter case manager on discharge plan, likely need dialysis set up outpatient upon discharge, likely TTS schedule Total time spent:41 minutes, more than 50% of time spent in coordination of care and discussing with patient/staff about current medical condition and management Code status: Full Code FRANCISCO SOTO MD 11:11 AM 01/03/2023 * Oscar Fung MD - 01/03/2023 10:49 AM CDT [facility] Nephrology Progress Note Trisha Lawrence is a 72-year-old female patient. Seen for greg HPI 72-year-old lady with history of chronic kidney disease stage IV, COPD, depression, dyslipidemia, hypertension, ischemic stroke, short memory loss, neuropathy who was admitted on 12/20 due to lethargyand confusion. Patient found to have GREG on CKD. Patient has CKD stage IV, last year creatinine was2.8. On presentation creatinine was found to be 4.7 and BUN 78. I was consulted to manage GREG on CKD. Patient used to follow-up with Dr. Fung, she reports that she transferred care to [facility] at [place], [place]. Subjective Patient is seen in dialysis. She denies any chest pain or shortness of breath. She continues to states she is doing well. She is willing to continue on dialysis and states to contact her son for all concerns. ROS: Denies fever, chills, or sweats. Denies any chest pain or shortness of breath. Denies any nausea, vomiting, or diarrhea. 01/03/23-99 Up in the chair Getting physical therapy Current Facility-Administered Medications Medication Dose Route Frequency Provider Last Rate Last Admin acetaminophen (TYLENOL) tablet 650 mg 650 mg Oral Q4H PRN Christopher Roberts III, MD 650 mg at 12/23/22 0920 albuterol sulfate HFA 108 (90 Base) MCG/ACT inhaler 2 puff 2 puff Inhalation Q6H PRN Rigo Trevino MD 2 puff at 12/28/22 0938 amLODIPine (NORVASC) tablet 5 mg 5 mg Oral Daily Toi Zimmerman MD 5 mg at 01/03/23 0818 aspirin chewable tablet 81 mg 81 mg Oral Daily Cici Rojas NP 81 mg at 01/03/23 0818 furosemide (LASIX) tablet 20 mg 20 mg Oral Q48H Fidelina Owens MD 20 mg at 01/02/23 1343 gabapentin (NEURONTIN) capsule 100 mg 100 mg Oral TID Rigo Trevino MD 100 mg at 01/03/23 0818 guaiFENesin ER (MUCINEX) 12 hr tablet 600 mg 600 mg Oral BID Francisco Soto MD 600 mg at 01/03/23 0818 heparin (porcine) injection 5,000 Units 5,000 Units Subcutaneous 2 times per day Christopher Roberts III, MD 5,000 Units at 01/03/23 0818 hydrALAZINE (APRESOLINE) injection 10 mg 10 mg Intravenous Q6H PRN Fidelina Owens MD HYDROcodone-acetaminophen (NORCO) 5-325 MG tablet 1 tablet 1 tablet Oral Q4H PRN Christopher Roberts III, MD 1 tablet at 12/27/22 1628 ipratropium-albuterol (DUONEB) 0.5-2.5 (3) MG/3ML nebulizer solution 3 mL 3 mL Nebulization 2 timesdaily Fidelina Owens MD 3 mL at 01/03/23 0814 metoprolol succinate ER (TOPROL-XL) 24 hr tablet 50 mg 50 mg Oral Daily Toi Zimmerman MD 50 mg at 01/03/23 0818 naLOXone (NARCAN) injection 0.4 mg 0.4 mg Intravenous PRN Christopher Roberts III, MD normal saline 0.9 % flush 3-10 mL 3-10 mL Intravenous PRN Christopher Roberts III, MD ondansetron (ZOFRAN) injection 4 mg 4 mg Intravenous Q8H PRN Christopher Roberts III, MD polyethylene glycol (GLYCOLAX) packet 17 g 17 g Oral Daily PRN Christopher Roberts III, MD polyvinyl alcohol (LIQUIFILM/ARTIFICIAL TEARS) 1.4 % ophthalmic solution 1 drop 1 drop Both Eyes PRN Francisco Soto MD 1 drop at 12/23/22 1523 No Known Allergies Principal Problem: Acute renal failure superimposed on stage 4 chronic kidney disease, unspecified acute renal failuretype (HHS/HCC) ([facility]/HCC) SNOMED CT(R): [id number] RENAL FAILURE Active Problems: Acute renal failure superimposed on chronic kidney disease (CMS/HCC) SNOMED CT(R): [id number] RENAL FAILURE Filed Vitals: 01/02/23 1340 01/02/23 1833 01/02/23202301/03/23 0758 BP: 114/66 109/80 105/73 Pulse: 85 85 78 Resp: 18 16 Temp: 97.9 ??F (36.6 ??C) TempSrc: Oral SpO2: 96% 98% 93% 97% Weight: Height: Last 3 Recorded Weights 12/20/22 0238 Weight: 84.5 kg (186 lb 4.6 oz) Intake/Output Summary (Last 24 hours) at 01/03/2023 1049 Last data filed at 01/02/2023 1126 Gross per 24 hour Intake 360 ml Output 1000 ml Net -640 ml Physical Exam: Patient is seen on dialysis GENERAL: No acute distress, breathing comfortably, 3 L nasal cannula EYES: Normal conjunctiva. ENT: Neck supple, head normocephalic. Buccal mucosa is moist. LUNG: Clear to auscultation bilaterally, no wheezes, no crackles. Nonlabored respirations. Oxygen via nasal cannula. CVS: Regular rate rhythm, S1 and S2 normal ABDOMEN: Soft, nondistended, Nontender EXT: no lower Ext edema. SKIN: Skin color, texture, turgor normal. No rashes or lesions NEURO: Alert, awake, No gross neuro deficit PSYCH: Appropriate mood and affect ACCESS: Right IJ tunneled dialysis catheter LABs Recent Labs Lab 12/28/2261412/29/22 0512/30/2234112/31/22 1011 01/01/23 0422 01/02/23 0400 01/03/23 0417 NA 142 141 141 140 139 139 137 K 4.6 4.7 4.6 4.6 4.2 4.2 3.5 CL 112* 112* 107 104 108* 108* 102 CO2 21.5 22.0 25.0 26.7 23.9 22.7 27.7 AGAP 8.5 7.0 9.0 9.3 7.1 8.3 7.3 BUN 52* 51* 39* 23* 32* 38* 25* CR 4.32* 4.15* 3.74* 3.05* 3.90* 4.04* 3.26* GLU 110* 109* 110* 99 103 105 105 CA 8.9 8.3* 8.9 9.1 8.6 8.8 9.0 MAGNESIUM 2.3 2.4 2.3 2.2 2.2 2.2 2.4 PHOS 6.1* 5.9* 4.7 4.9 5.5* 5.9* 5.0* Recent Labs Lab 12/28/2261412/29/2252512/30/2234112/31/22 1011 01/01/23 0422 01/02/23 0400 01/03/23 0417 WBC 10.18 8.54 8.03 9.05 8.27 9.83 8.19 RBC 3.98* 3.87* 3.98* 4.07* 3.80* 3.90* 3.91* HGB 12.0 11.6* 12.2 12.5 11.5* 11.7* 11.8* HCT 37.7 36.5 37.3 39.2 35.6* 36.9 37.2 MCV 94.7 94.3 93.7 96.3 93.7 94.6 95.1 MCH 30.2 30.0 30.7 30.7 30.3 30.0 30.2 MCHC 31.8* 31.8* 32.7* 31.9* 32.3* 31.7* 31.7* PLT 228 224 246 208 211 233 204 RDW 13.8 13.9 13.9 13.8 13.6 13.6 13.6 MPV 10.7* 10.2 10.9* 10.9* 10.4 10.5* 10.5* Assessment/Plan: 72-year-old lady with history of chronic kidney disease stage IV, COPD, depression, dyslipidemia, hypertension, ischemic stroke, short memory loss, neuropathy who was admitted on 12/20 due to lethargyand confusion. Patient found to have GREG on CKD. 1. GREG on CKD stage IV -Patient has CKD stage IV ; she reports that she transferred care to nephrology group at [place], [place]. -Last year creatinine was 2.8. Patient's son reports that her autos disassembler has discussed dialysis with them. -Per son, her EGFR has ranged 20-25 in the past year. -On presentation creatinine was found to be 4.7 and BUN 78. -CT abdomen:small bilateral kidneys with subcentimeter cystic foci demonstrating internal density. No hydronephrosis. -discussed (Dr banks) with patient's son, Zack, who agreed to HD initiation given no improvement in creatinine nor symptoms -HD START DATE 12/29/2022 - we will tentatively plan on a TTS schedule going forward. HD planned for -Outpatient dialysis placement pending. 2.HTN -Blood Pressure controlled on amlodipine and metoprolol 3.Anemia of chronic disease Hemoglobin stable at 11.7. No indication for IESHA 4.FEN Bicarb of 22.7 5.Renal osteodystrophy Calcium of 8.9 and phosphorus of 5.9, will monitor phosphorus and may need to start a binder 6. Disposition. Stable. Thank you for allowing me to participate in the care of this patient. We will continue to follow this patient with you. Please contact us with further questions. OSCAR FUNG MD 01/03/2023 * Danya Conenll PA-C - 01/02/2023 2:49 PM CDT [facility] Nephrology Progress Note Trisha Lawrence is a 72-year-old female patient. Seen for greg HPI 72-year-old lady with history of chronic kidney disease stage IV, COPD, depression, dyslipidemia, hypertension, ischemic stroke, short memory loss, neuropathy who was admitted on 12/20 due to lethargyand confusion. Patient found to have GREG on CKD. Patient has CKD stage IV, last year creatinine was2.8. On presentation creatinine was found to be 4.7 and BUN 78. I was consulted to manage GREG on CKD. Patient used to follow-up with Dr. Fung, she reports that she transferred care to [facility] at [place], [place]. Subjective Patient is seen in dialysis. She denies any chest pain or shortness of breath. She continues to states she is doing well. She is willing to continue on dialysis and states to contact her son for all concerns. ROS: Denies fever, chills, or sweats. Denies any chest pain or shortness of breath. Denies any nausea, vomiting, or diarrhea. Current Facility-Administered Medications Medication Dose Route Frequency Provider Last Rate Last Admin acetaminophen (TYLENOL) tablet 650 mg 650 mg Oral Q4H PRN Christopher Roberts III, MD 650 mg at 12/23/22 0920 albuterol sulfate HFA 108 (90 Base) MCG/ACT inhaler 2 puff 2 puff Inhalation Q6H PRN Rigo Trevino MD 2 puff at 12/28/22 0938 amLODIPine (NORVASC) tablet 5 mg 5 mg Oral Daily Toi Zimmerman MD 5 mg at 01/02/23 1344 aspirin chewable tablet 81 mg 81 mg Oral Daily Cici Rojas NP 81 mg at 01/02/23 1343 furosemide (LASIX) tablet 20 mg 20 mg Oral Q48H Fidelina Owens MD 20 mg at 01/02/23 1343 gabapentin (NEURONTIN) capsule 100 mg 100 mg Oral TID Rigo Trevino MD 100 mg at 01/01/23 2138 guaiFENesin ER (MUCINEX) 12 hr tablet 600 mg 600 mg Oral BID Francisco Soto MD 600 mg at 01/01/23 213 heparin (porcine) injection 5,000 Units 5,000 Units Subcutaneous 2 times per day Christopher Roberts III, MD 5,000 Units at 01/01/23 2137 hydrALAZINE (APRESOLINE) injection 10 mg 10 mg Intravenous Q6H PRN Fidelina Owens MD HYDROcodone-acetaminophen (NORCO) 5-325 MG tablet 1 tablet 1 tablet Oral Q4H PRN Christopher Roberts III, MD 1 tablet at 12/27/22 1628 ipratropium-albuterol (DUONEB) 0.5-2.5 (3) MG/3ML nebulizer solution 3 mL 3 mL Nebulization 2 timesdaily Fidelina Owens MD 3 mL at 01/02/23 0642 metoprolol succinate ER (TOPROL-XL) 24 hr tablet 50 mg 50 mg Oral Daily Toi Zimmerman MD 50 mg at 01/02/23 1344 naLOXone (NARCAN) injection 0.4 mg 0.4 mg Intravenous PRN Christopher Roberts III, MD normal saline 0.9 % flush 3-10 mL 3-10 mL Intravenous PRN Christopher Roberts III, MD ondansetron (ZOFRAN) injection 4 mg 4 mg Intravenous Q8H PRN Christopher Roberts III, MD polyethylene glycol (GLYCOLAX) packet 17 g 17 g Oral Daily PRN Christopher Roberts III, MD polyvinyl alcohol (LIQUIFILM/ARTIFICIAL TEARS) 1.4 % ophthalmic solution 1 drop 1 drop Both Eyes PRN Francisco Soto MD 1 drop at 12/23/22 1523 No Known Allergies Principal Problem: Acute renal failure superimposed on stage 4 chronic kidney disease, unspecified acute renal failuretype ([facility]/HCC) ([facility]) SNOMED CT(R): [id number] RENAL FAILURE Active Problems: Acute renal failure superimposed on chronic kidney disease ([facility]) SNOMED CT(R): UILDB-BJ-XENLENU RENAL FAILURE Filed Vitals: 01/02/23 1100 01/02/23 1121 01/02/23 1126 01/02/23 1340 BP: 128/76 134/80 121/61 114/66 Pulse: 76 76 77 85 Resp: 18 Temp: 97.3 ??F (36.3 ??C) TempSrc: Axillary SpO2: 96% Weight: Height: Last 3 Recorded Weights 12/20/22 0238 Weight: 84.5 kg (186 lb 4.6 oz) Intake/Output Summary (Last 24 hours) at 01/02/2023 1449 Last data filed at 01/02/2023 1126 Gross per 24 hour Intake -- Output 1000 ml Net -1000 ml Physical Exam: Patient is seen on dialysis GENERAL: No acute distress, breathing comfortably, 3 L nasal cannula EYES: Normal conjunctiva. ENT: Neck supple, head normocephalic. Buccal mucosa is moist. LUNG: Clear to auscultation bilaterally, no wheezes, no crackles. Nonlabored respirations. Oxygen via nasal cannula. CVS: Regular rate rhythm, S1 and S2 normal ABDOMEN: Soft, nondistended, Nontender EXT: no lower Ext edema. SKIN: Skin color, texture, turgor normal. No rashes or lesions NEURO: Alert, awake, No gross neuro deficit PSYCH: Appropriate mood and affect ACCESS: Right IJ tunneled dialysis catheter LABs Recent Labs Lab 12/27/2241312/28/2261412/29/2252512/30/2234112/31/22 10101/01/2342101/02/23 0400 NA 143 142 141 141 140 139 139 K 4.4 4.6 4.7 4.6 4.6 4.2 4.2 CL 114* 112* 112* 107 104 108* 108* CO2 22.2 21.5 22.0 25.0 26.7 23.9 22.7 AGAP 6.8 8.5 7.0 9.0 9.3 7.1 8.3 BUN 45* 52* 51* 39* 23* 32* 38* CR 3.77* 4.32* 4.15* 3.74* 3.05* 3.90* 4.04* GLU 123* 110* 109* 110* 99 103 105 CA 8.4* 8.9 8.3* 8.9 9.1 8.6 8.8 MAGNESIUM 2.1 2.3 2.4 2.3 2.2 2.2 2.2 PHOS 5.0* 6.1* 5.9* 4.7 4.9 5.5* 5.9* Recent Labs Lab 12/27/2241312/28/2261412/29/2252512/30/2234112/31/22 1011 01/01/23 0422 01/02/23 0400 WBC 11.66* 10.18 8.54 8.03 9.05 8.27 9.83 RBC 4.11 3.98* 3.87* 3.98* 4.07* 3.80* 3.90* HGB 12.4 12.0 11.6* 12.2 12.5 11.5* 11.7* HCT 38.6 37.7 36.5 37.3 39.2 35.6* 36.9 MCV 93.9 94.7 94.3 93.7 96.3 93.7 94.6 MCH 30.2 30.2 30.0 30.7 30.7 30.3 30.0 MCHC 32.1* 31.8* 31.8* 32.7* 31.9* 32.3* 31.7* PLT 213 228 224 246 208 211 233 RDW 13.8 13.8 13.9 13.9 13.8 13.6 13.6 MPV 9.7 10.7* 10.2 10.9* 10.9* 10.4 10.5* Assessment/Plan: 72-year-old lady with history of chronic kidney disease stage IV, COPD, depression, dyslipidemia, hypertension, ischemic stroke, short memory loss, neuropathy who was admitted on 12/20 due to lethargyand confusion. Patient found to have GREG on CKD. 1. GREG on CKD stage IV -Patient has CKD stage IV ; she reports that she transferred care to nephrology group at [place], [place]. -Last year creatinine was 2.8. Patient's son reports that her autos disassembler has discussed dialysis with them. Per son, her EGFR has ranged 20-25 in the past year. -On presentation creatinine was found to be 4.7 and BUN 78. -CT abdomen:small bilateral kidneys with subcentimeter cystic foci demonstrating internal density. No hydronephrosis. -BUN and creatinine improved with IVF but then worsened -restarted on lasix 20 mg every 48 hours and uop is better. I will inc the dose -discussed (Dr banks) with patient's son, Zack, who agreed to HD initiation given no improvement in creatinine nor symptoms -HD START DATE 12/29/2022 - we will tentatively plan on a TTS schedule going forward. HD planned for -Outpatient dialysis placement pending. 2.HTN -Blood Pressure controlled on amlodipine and metoprolol 3.Anemia of chronic disease Hemoglobin stable at 11.7. No indication for IESHA 4.FEN Bicarb of 22.7 5.Renal osteodystrophy Calcium of 8.9 and phosphorus of 5.9, will monitor phosphorus and may need to start a binder 6. Disposition. Stable. Thank you for allowing me to participate in the care of this patient. We will continue to follow this patient with you. Please contact us with further questions. DANYA CONNELL PA-C 01/02/2023 Cosigned by Oscar Fung MD at 01/04/2023 7:48 AM CDT * Nicole Ordoñez RN - 01/02/2023 11:31 AM CDT 01/02/23 1126 Post Treatment Note Post Treatment Note 3hrs dialysis treatment done. tolerated 1L Uf removal. patient stable post treatment. catheter care done. endorsed to primary rn Vital Signs Temp 97.3 ??F (36.3 ??C) Temp src Axillary Pulse 77 Heart Rate Source Monitor Resp 18 BP 121/61 MAP Calculated 81 MM HG BP Location Left arm BP Method Automatic Patient Position Lying Cuff size Adult Regular Post Treatment Weight Post-Treatment Weight (kg) 79.7 kg (175 lb 11.3 oz) Additonal Post Treatment Information Time Treatment Ended 1121 Dialyzer Cleared Good Blood Processed 67.8 Net UF removed 1000 Post Treatment Access Catheter Locking Solution saline * Francisco Soto MD - 01/02/2023 11:20 AM CDT [facility] Hospitalist Progress note Chief Complaint: GREG SUBJECTIVE: Pt seen and examined down in HD No new complaints ROS: All other systems reviewed and negative except above Blood pressure 128/76, pulse 76, temperature 97.3 ??F (36.3 ??C), temperature source Axillary, resp. rate 18, height 1.702 m (5' 7 ), weight 84.5 kg (186 lb 4.6 oz), SpO2 97 %. Physical Exam Constitutional: Appearance: She is well-developed. HENT: Head: Normocephalic. Eyes: Pupils: Pupils are equal, round, and reactive to light. Cardiovascular: Rate and Rhythm: Normal rate. Heart sounds: Normal heart sounds. Pulmonary: Breath sounds: Normal breath sounds. Comments: Bilateral mild Rales heard Abdominal: General: Bowel sounds are normal. Palpations: Abdomen is soft. Tenderness: There is no abdominal tenderness. Musculoskeletal: Cervical back: Normal range of motion. Comments: Not able to lift right arm above shoulder level, decreased range of movement in the rightshoulder Skin: General: Skin is warm and dry. Neurological: Mental Status: She is alert and oriented to person, place, and time. Cranial Nerves: No cranial nerve deficit. Psychiatric: Mood and Affect: Mood normal. LABS:. Recent Labs 12/31/22 1011 01/01/23 0422 01/02/23 0400 WBC 9.05 8.27 9.83 HGB 12.5 11.5* 11.7* HCT 39.2 35.6* 36.9 MCV 96.3 93.7 94.6 PLT 208 211 233 RBC 4.07* 3.80* 3.90* Recent Labs Lab 12/31/22 1011 01/01/23 0422 01/02/23 0400 NA 140 139 139 K 4.6 4.2 4.2 CL 104 108* 108* CO2 26.7 23.9 22.7 AGAP 9.3 7.1 8.3 BUN 23* 32* 38* CR 3.05* 3.90* 4.04* GLU 99 103 105 CA 9.1 8.6 8.8 TP 6.7 6.1* 6.3* ALB 3.0* 2.8* 2.9* TBIL 0.5 0.5 0.5 ALKP 92 89 91 AST 29 23 19 ALT 24 23 28 Recent Labs Lab 12/29/22 0526 INR 0.9 No intake or output data in the 24 hours ending 01/02/23 1120 RADIOLOGY : REVIEWED MEDICATIONS Scheduled medications amLODIPine 5 mg Oral Daily aspirin 81 mg Oral Daily furosemide 20 mg Oral Q48H gabapentin 100 mg Oral TID guaiFENesin ER 600 mg Oral BID heparin (porcine) 5,000 Units Subcutaneous 2 times per day ipratropium-albuterol 3 mL Nebulization 2 times daily metoprolol succinate ER 50 mg Oral Daily Infusion PRN acetaminophen, albuterol sulfate HFA, hydrALAZINE, HYDROcodone-acetaminophen, naLOXone, normal saline, ondansetron, polyethylene glycol, polyvinyl alcohol ASSESSMENT/PLAN: GREG on CKD stage IV Hyperphosphatemia Last year baseline creatinine 2.8 Reviewed renal ultrasound done, findings noted Initially was on IV fluids, discontinued now Nephrology on board, s/p right IJ tunneled catheter placed by IR 12/29, received HD 12/29, 12/30 Creatinine trending up to 3.9, phosphorus 5.5 today Avoid nephrotoxins Monitor BMP in a.m. Right arm/shoulder pain Previous history of right shoulder surgery Reviewed x-ray of right shoulder, no acute findings, prior arthroplasty noted Pain medications as needed PT/OT evaluation, recommending swing bed Recommend outpatient follow-up with orthopedics Shortness of breath HFpEF Hypertension Reviewed echocardiogram, EF 65% Continue amlodipine, metoprolol Continue Lasix 20 mg every 48 hours IV hydralazine as needed Continue aspirin UTI Urinalysis positive for infection, started on IV Rocephin 12/29, urine cultures negative, received 3 days of IV Rocephin, stop IV Rocephin today Reactive hepatitis B panel Reactive hepatitis B core total antibody and hepatitis B surface antibody Recommend outpatient follow-up with PCP/ID DVT prophylaxis Subcu heparin Discussed with RN on the plan PT/OT evaluated and recommending swing bed, discussed with shelter case manager on discharge plan, likely need dialysis set up outpatient upon discharge, likely TTS schedule Total time spent:41 minutes, more than 50% of time spent in coordination of care and discussing with patient/staff about current medical condition and management Code status: Full Code FRANCISCO SOTO MD 11:20 AM 01/02/2023 * Raine Blount - 01/02/2023 9:26 AM CDT Call from [facility] nurse stating facility can now not accept patient as they can't meet her dialysis schedule. CM will follow up with patient/ family with other options [id number] CM spoke with son and explained [facility] declined and provided son with options in area. Son would like referrals sent to [facility]. Referrals sent. * Veronica Rios RN - 01/01/2023 2:57 PM CDT New PASSR completed and faxed. No response back from [facility]. 01/01/23 [id number] Interdisciplinary Group Conference Team Members Present Case/Care management;Nursing Barriers to Discharge Barriers Complex - Social and/or Medical * Fidelina Owens MD - 01/01/2023 1:31 PM CDT [facility] Hospitalist Progress note Chief Complaint: GREG SUBJECTIVE: Patient seen and examined Labs reviewed Last HD on Sunday Patient's brother at bedside Breathing okay, denies any chest pain Tolerating p.o. diet Generalized weakness present No fever ROS: All other systems reviewed and negative except above Blood pressure 134/84, pulse 78, temperature 98.6 ??F (37 ??C), temperature source Oral, resp. rate18, height 1.702 m (5' 7 ), weight 84.5 kg (186 lb 4.6 oz), SpO2 92 %. Physical Exam Constitutional: Appearance: She is well-developed. HENT: Head: Normocephalic. Eyes: Pupils: Pupils are equal, round, and reactive to light. Cardiovascular: Rate and Rhythm: Normal rate. Heart sounds: Normal heart sounds. Pulmonary: Breath sounds: Normal breath sounds. Comments: Bilateral mild Rales heard Abdominal: General: Bowel sounds are normal. Palpations: Abdomen is soft. Tenderness: There is no abdominal tenderness. Musculoskeletal: Cervical back: Normal range of motion. Comments: Not able to lift right arm above shoulder level, decreased range of movement in the rightshoulder Skin: General: Skin is warm and dry. Neurological: Mental Status: She is alert and oriented to person, place, and time. Cranial Nerves: No cranial nerve deficit. Psychiatric: Mood and Affect: Mood normal. LABS:. Recent Labs 12/30/2234112/31/22 1011 01/01/23 0422 WBC 8.03 9.05 8.27 HGB 12.2 12.5 11.5* HCT 37.3 39.2 35.6* MCV 93.7 96.3 93.7 PLT 246 208 211 RBC 3.98* 4.07* 3.80* Recent Labs Lab 12/30/2234112/31/22 1011 01/01/23 0422 NA 141 140 139 K 4.6 4.6 4.2 CL 107 104 108* CO2 25.0 26.7 23.9 AGAP 9.0 9.3 7.1 BUN 39* 23* 32* CR 3.74* 3.05* 3.90* GLU 110* 99 103 CA 8.9 9.1 8.6 TP 6.4 6.7 6.1* ALB 2.8* 3.0* 2.8* TBIL 0.6 0.5 0.5 ALKP 90 92 89 AST 20 29 23 ALT 20 24 23 Recent Labs Lab 12/29/22 0526 INR 0.9 Intake/Output Summary (Last 24 hours) at 01/01/2023 1331 Last data filed at 01/01/2023 0503 Gross per 24 hour Intake 240 ml Output 1155 ml Net -915 ml RADIOLOGY : REVIEWED MEDICATIONS Scheduled medications amLODIPine 5 mg Oral Daily aspirin 81 mg Oral Daily furosemide 20 mg Oral Q48H gabapentin 100 mg Oral TID guaiFENesin ER 600 mg Oral BID heparin (porcine) 5,000 Units Subcutaneous 2 times per day ipratropium-albuterol 3 mL Nebulization 2 times daily metoprolol succinate ER 50 mg Oral Daily Infusion PRN acetaminophen, albuterol sulfate HFA, hydrALAZINE, HYDROcodone-acetaminophen, naLOXone, normal saline, ondansetron, polyethylene glycol, polyvinyl alcohol ASSESSMENT/PLAN: GREG on CKD stage IV Hyperphosphatemia Last year baseline creatinine 2.8 Reviewed renal ultrasound done, findings noted Initially was on IV fluids, discontinued now Nephrology on board, s/p right IJ tunneled catheter placed by IR 12/29, received HD 12/29, 12/30 Creatinine trending up to 3.9, phosphorus 5.5 today Avoid nephrotoxins Monitor BMP in a.m. Right arm/shoulder pain Previous history of right shoulder surgery Reviewed x-ray of right shoulder, no acute findings, prior arthroplasty noted Pain medications as needed PT/OT evaluation, recommending swing bed Recommend outpatient follow-up with orthopedics Shortness of breath HFpEF Hypertension Reviewed echocardiogram, EF 65% Continue amlodipine, metoprolol Continue Lasix 20 mg every 48 hours IV hydralazine as needed Continue aspirin UTI Urinalysis positive for infection, started on IV Rocephin 12/29, urine cultures negative, received 3 days of IV Rocephin, stop IV Rocephin today Reactive hepatitis B panel Reactive hepatitis B core total antibody and hepatitis B surface antibody Recommend outpatient follow-up with PCP/ID DVT prophylaxis Subcu heparin Discussed with RN on the plan PT/OT evaluated and recommending swing bed, discussed with shelter case manager on discharge plan, likely need dialysis set up outpatient upon discharge, likely TTS schedule Total time spent:38 minutes, more than 50% of time spent in coordination of care and discussing with patient/staff about current medical condition and management Code status: Full Code FIDELINA OWENS MD 1:31 PM 01/01/2023 * Carlos Herrera, [facility] [employer] [employer] - 01/01/2023 1:25 PM CDT PT Treatment Discharge Recommendation: Swing bed unit DME equipment recommendation: 2 wheeled walker Activity Recommendation for supervisor matrix: up with assist of 1,gt belt and walker . 01/01/23 1319 Therapy Visit Ordering Provider Christopher Roberts III, MD Subjective RN gave permission to seept.Pt willing to try Reason for admission Pt admitted to hospital after a fall at home; acute renal failure supimposed on stage 4 chronic kidney disease......Therapy orders: Eval and Treat......PMH: CVA with R sided residual deficits, CKD, COPD, depression, displaced R proximal humeral fx, HLD, neuropathy, and UTI. Verified Two Patient Identifiers Yes Patient consents to therapy Yes Acute Inpatient PT Time Calculation PT Start Time 1130 PT Stop Time 1155 PT Time Calculation (min) 25 min Precautions General Precautions Fall Risk;Chair Alarm;Multiple lines Instructed on Precautions Yes;Verbalizes understanding Other tele, IV Home Living Home Living Comments Per eval, pt lives alone in a one-story home with 4 ALBERT with bilateral rails. Pt has a tub shower with grab bars and shower chair and standard toilet. Prior to admission, patientambulated household distances and completed ADLs independently. Pt does not leave home, and states she would need assistance to ascend/descend stairs. Pt has a cane and a walker at home. Her son lives nearby and is home in the evenings. Pain Pain Patient does not offer or c/o pain Cognition Overall Cognitive Status WFL Arousal/Alertness Appropriate responses to stimuli Attention Span Appears intact Memory Appears intact Orientation Level Oriented X4 Following Commands Follows all commands and directions without difficulty Safety Judgment Good awareness of safety precautions Awareness of Errors Good awareness of errors made Deficits Fully aware of deficits Problem Solving Able to problem solve independently Motor Planning Appears intact Perseveration Not present Initiation Appears intact Bed Mobility Other (Comment) not tested, pt is up in the chair TRANSFERS Sit to Stand Contact guard assist Other (Comment) from the recliner chair with given increased time.Cues for eccentric control as pt tends to plop into the chair Gait Gait Assistance Contact guard assist Assistive Device 2 Wheeled walker Distance Ambulated (ft) 24 ft (24 feet,18 feetx2) Other (Comment) Pt was able to amb with step to gt pattern,slow,discontinuous stepping and cues to lead withthe rt foot.When she does this, pt amb with step through gt pattern and balance and gt improves. Balance Sitting - Static Independent Sitting - Dynamic Independent Standing - Static CGA;Support of both upper extremities Standing - Dynamic CGA;Support of both upper extremities Other (Comment) Pt fatigues quickly but no LOB during this session PT Assessment PT Assessment Pt coninues to prgress with transfers and amb distances.Pt did not have any pain but is very guarded with mobility. She does improve when leading with the rt foot first and needs cues for this.Discussed safety and gt patterns,transfers with her todayand safety with each one.Pt slowly improving and is limited by fatigue,deconditioning and weakness .Recommend swing bed Discharge Recommendation PT Recommendation Swing bed unit PT Equipment Recommended 2 Wheeled walker Plan PT Treatments/Interventions Gait Training;Therapeutic Exercises;Therapeutic Activities;Patient/family training Progress Slow progress, decreased activity tolerance PT Frequency 5 times/week PT - Next Appointment 01/01/23 If this is the last treatment note,it will serve as the discharge summary Yes End of Session End of Session Safety Chair alarm set/activated;Call light within reach;Nursing aware of session End of Session Comment Pt is up in the chair with all needs in reach Education: Primary Learners Name: Trisha Lawrence Primary Language of learner: Moldovan Patient was educated on precautions transfers balance gait safety energy conservation joint protection. Education was completed one to one verbal hands-on this date. Preference of learning new concepts one to one verbal hands-on Barriers to education this date were fatigue anxious physical impairment. Response to education this date demos with verbal cues needs reinforcement needs follow up needs assistance. * Emilie Barbosa MD - 01/01/2023 12:00 PM CDT [facility] Nephrology Progress Note rTisha Lawrence is a 72-year-old female patient. Seen for greg HPI 72-year-old lady with history of chronic kidney disease stage IV, COPD, depression, dyslipidemia, hypertension, ischemic stroke, short memory loss, neuropathy who was admitted on 12/20 due to lethargyand confusion. Patient found to have GREG on CKD. Patient has CKD stage IV, last year creatinine was2.8. On presentation creatinine was found to be 4.7 and BUN 78. I was consulted to manage GREG on CKD. Patient used to follow-up with Dr. Fung, she reports that she transferred care to [facility] at [place], [place]. Subjective Seen and examined in her room. uop 1.1 but clearance remains poor. Cr rising off of HD. 10 point ros neg othrwise Current Facility-Administered Medications Medication Dose Route Frequency Provider Last Rate Last Admin ??? acetaminophen (TYLENOL) tablet 650 mg 650 mg Oral Q4H PRN Christopher Roberts III, MD 650 mg at 12/23/22 0920 ??? albuterol sulfate HFA 108 (90 Base) MCG/ACT inhaler 2 puff 2 puff Inhalation Q6H PRN Rigo Trevino MD 2 puff at 12/28/22 0938 ??? amLODIPine (NORVASC) tablet 5 mg 5 mg Oral Daily Toi Zimmerman MD 5 mg at 01/01/23825 ??? aspirin chewable tablet 81 mg 81 mg Oral Daily Cici Rojas NP 81 mg at 01/01/23824 ??? furosemide (LASIX) tablet 20 mg 20 mg Oral Q48H Fidelina Owens MD 20 mg at 12/31/22 0734 ??? gabapentin (NEURONTIN) capsule 100 mg 100 mg Oral TID Rigo Trevino MD 100 mg at 01/01/23824 ??? guaiFENesin ER (MUCINEX) 12 hr tablet 600 mg 600 mg Oral BID Francisco Soto MD 600 mg at ??? heparin (porcine) injection 5,000 Units 5,000 Units Subcutaneous 2 times per day Christopher Roberts III, MD 5,000 Units at 01/01/23825 ??? hydrALAZINE (APRESOLINE) injection 10 mg 10 mg Intravenous Q6H PRN Fidelina Owens MD ??? HYDROcodone-acetaminophen (NORCO) 5-325 MG tablet 1 tablet 1 tablet Oral Q4H PRN Christopher Roberts III, MD 1 tablet at 12/27/22 1628 ??? ipratropium-albuterol (DUONEB) 0.5-2.5 (3) MG/3ML nebulizer solution 3 mL 3 mL Nebulization 2 times daily Fidelina Owens MD 3 mL at 01/01/23 0946 ??? metoprolol succinate ER (TOPROL-XL) 24 hr tablet 50 mg 50 mg Oral Daily Toi Zimmerman MD 50 mg at 01/01/23825 ??? naLOXone (NARCAN) injection 0.4 mg 0.4 mg Intravenous PRN Christopher Roberts III, MD ??? normal saline 0.9 % flush 3-10 mL 3-10 mL Intravenous PRN Christopher Roberts III, MD ??? ondansetron (ZOFRAN) injection 4 mg 4 mg Intravenous Q8H PRN Christopher Roberts III, MD ??? polyethylene glycol (GLYCOLAX) packet 17 g 17 g Oral Daily PRN Christopher Roberts III, MD ??? polyvinyl alcohol (LIQUIFILM/ARTIFICIAL TEARS) 1.4 % ophthalmic solution 1 drop 1 drop Both Eyes PRN Francisco Soto MD 1 drop at 12/23/22 1523 Review of patient's allergies indicates: No Known Allergies Principal Problem: Acute renal failure superimposed on stage 4 chronic kidney disease, unspecified acute renal failuretype (HHS/HCC) ([facility]) SNOMED CT(R): [id number] RENAL FAILURE Active Problems: Acute renal failure superimposed on chronic kidney disease ([facility]) SNOMED CT(R): [id number] RENAL FAILURE Filed Vitals: 12/30/22201412/31/22 0731 12/31/22 1939 01/01/23 0813 BP: 112/71 118/81 124/78 134/84 Pulse: 91 88 84 78 Resp: 18 17 16 18 Temp: 99 ??F (37.2 ??C) 97.4 ??F (36.3 ??C) 98.2 ??F (36.8 ??C) 98.6 ??F (37 ??C) TempSrc: Oral Oral Oral Oral SpO2: 95% 90% 94% 92% Weight: Height: Last 3 Recorded Weights 12/20/22 0238 Weight: 84.5 kg (186 lb 4.6 oz) Intake/Output Summary (Last 24 hours) at 01/01/2023 1201 Last data filed at 01/01/2023 0503 Gross per 24 hour Intake 240 ml Output 1155 ml Net -915 ml Physical Exam: GENERAL: No acute distress, breathing comfortably, 2 L nasal cannula EYES: Extraocular movements intact, sclerae anicteric ENT: Neck supple, septum is midline. LUNG: Clear to auscultation bilaterally, no wheezes, no crackles CVS: Regular rate rhythm, S1 and S2 normal ABDOMEN: Soft, nondistended, Nontender EXT: no lower Ext edema. SKIN: Skin color, texture, turgor normal. No rashes or lesions NEURO: Alert, awake, No gross neuro deficit PSYCH: Appropriate mood and affect ACCESS: Right IJ tunneled dialysis catheter LABs Recent Labs Lab 12/26/22 0356 12/27/22 0414 12/28/22 0615 12/29/22 0526 12/30/22 0342 12/31/22 1011 01/01/23 0422 NA 143 143 142 141 141 140 139 K 4.1 4.4 4.6 4.7 4.6 4.6 4.2 CL 114* 114* 112* 112* 107 104 108* CO2 21.5 22.2 21.5 22.0 25.0 26.7 23.9 AGAP 7.5 6.8 8.5 7.0 9.0 9.3 7.1 BUN 40* 45* 52* 51* 39* 23* 32* CR 3.52* 3.77* 4.32* 4.15* 3.74* 3.05* 3.90* GLU 111* 123* 110* 109* 110* 99 103 CA 9.0 8.4* 8.9 8.3* 8.9 9.1 8.6 MAGNESIUM -- 2.1 2.3 2.4 2.3 2.2 2.2 PHOS 4.6 5.0* 6.1* 5.9* 4.7 4.9 5.5* Recent Labs Lab 12/27/22 0414 12/28/22 0615 12/29/22 0526 12/30/22 0342 12/31/22 1011 01/01/23 0422 WBC 11.66* 10.18 8.54 8.03 9.05 8.27 RBC 4.11 3.98* 3.87* 3.98* 4.07* 3.80* HGB 12.4 12.0 11.6* 12.2 12.5 11.5* HCT 38.6 37.7 36.5 37.3 39.2 35.6* MCV 93.9 94.7 94.3 93.7 96.3 93.7 MCH 30.2 30.2 30.0 30.7 30.7 30.3 MCHC 32.1* 31.8* 31.8* 32.7* 31.9* 32.3* PLT 213 228 224 246 208 211 RDW 13.8 13.8 13.9 13.9 13.8 13.6 MPV 9.7 10.7* 10.2 10.9* 10.9* 10.4 Assessment/Plan: 72-year-old lady with history of chronic kidney disease stage IV, COPD, depression, dyslipidemia, hypertension, ischemic stroke, short memory loss, neuropathy who was admitted on 12/20 due to lethargyand confusion. Patient found to have GREG on CKD. 1. GREG on CKD stage IV -Patient has CKD stage IV ; she reports that she transferred care to nephrology group at [place], [place]. -Last year creatinine was 2.8. Patient's son reports that her autos disassembler has discussed dialysis with them. Per son, her EGFR has ranged 20-25 in the past year. -On presentation creatinine was found to be 4.7 and BUN 78. -CT abdomen:small bilateral kidneys with subcentimeter cystic foci demonstrating internal density. No hydronephrosis. -BUN and creatinine improved with IVF but then worsened -restarted on lasix 20 mg every 48 hours and uop is better. I will inc the dose -discussed (Dr banks) with patient's son, Zack, who agreed to HD initiation given no improvement in creatinine nor symptoms -HD START DATE 12/29/2022 - we will tentatively plan on a TTS schedule going forward. HD planned for tomorrow. -Outpatient dialysis placement pending. 2.HTN -Blood Pressure controlled on amlodipine and metoprolol 3.Anemia of chronic disease Hemoglobin stable at 11.5. No indication for IESHA 4.FEN Bicarb of 25. Discontinuing sodium bicarbonate as she is now on dialysis. 5.Renal osteodystrophy Calcium of 8.9 and phosphorus of 5.5, I will start renvela. 6. Disposition. Stable. Thank you for allowing me to participate in the care of this patient. We will continue to follow this patient with you. Please contact us with further questions. Dr Fung starts tomorrow. EMILIE BARBOSA MD 01/01/2023 * Uyen Sutton, PT - 01/01/2023 12:00 PM CDTSummary: P/T POC update The below POC to be followed until 01/16/23 at that time POC will be re-assessed to ensure patient is making appropriate progression. Pt. will be able to perform supine to/from sitting at EOB with Independent to improve mobility. Pt. will be able to perform sit to/from standing with Modified [place] using wheeled walker toimprove independence. Pt. will be able to ambulate 100 feet with Modified [place] using wheeled walker to help improve strength and functional independence. Pt. will be able to maintain static sitting balance for 10-20 minutes with Independent to improve independence. Pt. will be able to maintain dynamic sitting balance on soft surface with Independent to improve functional mobility. Pt. will be able to maintain static standing balance 5-10 minutes with Modified [place] using wheeled walker to improve independence. Pt. will be able to maintain dynamic standing balance during side-stepping L/R and marching with Modified [place] using wheeled walker to improve functional mobility. * CURLY Minaya - 01/01/2023 11:06 AM CDT OT Treatment Discharge Recommendation: Swing bed unit Activity Recommendation for supervisor matrix: Up with 1, gait belt and 2ww. Up to chair/commode 01/01/23 1036 Therapy Visit Reason for admission Pt admitted to hospital after a fall at home; acute renal failure supimposed on stage 4 chronic kidney disease......Therapy orders: Eval and Treat......PMH: CVA with R sided residual deficits, CKD, COPD, depression, displaced R proximal humeral fx, HLD, neuropathy, and UTI. Ordering Provider Christopher Roberts III, MD Acute Inpatient OT Time Calculation OT Start Time 1036 OT Stop Time 1106 OT Time Calculation (min) 30 min Precautions General Precautions Fall Risk;Chair Alarm;Multiple lines Instructed on Precautions Yes;Verbalizes understanding Other tele, IV Home Living Home Living Comments Per eval, pt lives alone in a one-story home with 4 ALBERT with bilateral rails. Pt has a tub shower with grab bars and shower chair and standard toilet. Prior to admission, patientambulated household distances and completed ADLs independently. Pt does not leave home, and states she would need assistance to ascend/descend stairs. Pt has a cane and a walker at home. Her son lives nearby and is home in the evenings. Subjective Subjective RN ok'd therapy session. Pt supine in bed upon entering room. Pt agreeable to session. Pain Pain Patient does not offer or c/o pain Activity Tolerance Activity Tolerance Comments Limited by acute weakness and rt ankle pain and rt quadrant pain aroundribs Cognition Overall Cognitive Status WFL Arousal/Alertness Appropriate responses to stimuli Attention Span Appears intact Memory Appears intact Orientation Level Oriented X4 ADL Grooming Assistance Stand by;Maximal;Sitting in chair Grooming Deficit Wash/dry hands;Wash/dry face;Teeth care;Brushing hair Grooming Comment Pt needed maxA to brush hair due to having large tangles in hair LE Dressing Assistance Minimal;Sitting at EOB LE Dressing Deficit Thread RLE into underwear;Thread LLE into underwear;Pull up over hips LE Dressing Comment Pt needed Min A to get RLE into depend due R sided weakness from previous stroke Toileting Assistance Maximal Toileting Deficit Perineal hygiene Toileting Comment Pt incontinent of BM needing maxA for hygiene Bed Mobility Supine to Sit SBA/supervision Functional Transfers Sit to Stand Contact guard assist Bed to Chair Contact guard assist Functional Mobility Pt stood from EOB with CGA. Functional mobility in room with 2ww and CGA mocking household distances. Pt ambulated around bed to chair Balance Sitting - Static Independent Sitting - Dynamic Independent Standing - Static CGA;Support of both upper extremities Standing - Dynamic CGA;Support of both upper extremities Other (Comment) Pt fatigues quickly but no LOB during this session OT Assessment OT Assessment Pt making slow progress toward OT goals. Pt limited by weakness, fatigue and acute deconditioning. Pt would continue to benefit from skilled OT in the acute setting before d/c to swing bed unit to further improve strength, balance, transfers and ADL independence Discharge Recommendation OT Recommendation Swing bed unit Plan Progress Slow progress, decreased activity tolerance OT Frequency 5 times/week OT - Next Appointment 01/01/23 If this is the last treatment note, it will serve as the discharge summary Yes End of Session End of Session Safety Chair alarm set/activated;Call light within reach;Nursing aware of session;Family/friend present with patient Education: Primary Learners Name: Trisha Lawrence Primary Language of learner: Moldovan Patient was educated on transfers ADLs balance bed mobility therapy plan safety. Education was completed one to one verbal this date. Preference of learning new concepts one to one verbal Barriers to education this date were fatigue. Response to education this date verbalized understanding verbalized recall. * Tanvi Juan RD - 01/01/2023 10:15 AM CDT CLINICAL DIETITIAN RESCREEN Patient is a 72-year-old female admitted secondary to Acute renal failure superimposed on stage 4 chronic kidney disease, unspecified acute renal failure type ([facility]/HCC) ([facility]) [N17.9, N18.4] Acute renal failure superimposed on chronic kidney disease ([facility]/HCC) [N17.9, N18.9]. Past Medical History: Diagnosis Date CKD (chronic kidney disease) stage 3, GFR 30-59 ml/min ([facility]) COPD (chronic obstructive pulmonary disease) ([facility]/HCC) ([facility]) Depression Displaced fracture of proximal end of right humerus 11/06/2018 HLD (hyperlipidemia) Hypertension Ischemic stroke ([facility]/HCC) ([facility]) Neuropathy UTI (urinary tract infection) Current diet order: Diet general Not appropriate Current diet appropriate? Yes; monitor need for renal diet Appetite adequate? Yes; Per review of recorded intake per EHR, ordered meals per [employer] and patient/RN reported intake of 75-90% of meals, it is estimated that patient consumed an average of 1869 kcal/day and 71 gm/day protein over the past 3 days. Fluid intake appears adequate for hydration. Kaden scale noted to be adequate for nutrition per nurse documentation. Patient receiving EN or TPN? No Admission weight: 84.5 kg (Date: 12/20/22; Method: Stated) Weight stable? No new weight to assess this admission. Last 5 Recorded Weights 12/20/22 0238 Weight: 84.5 kg (186 lb 4.6 oz) Body mass index is 29.18 kg/m??. (Overweight) Skin (stage 2 or greater pressure ulcer or other significant non-healing wound)? No Summary: Nutrition risk identified? No Plan: [x] Provide basic nutrition services [x] Rescreen for nutrition risk per protocol [] Monitor NPO/clear liquid status [] Monitor oral intake [] Assess education needs [] Start nutrition assessment TANVI JUAN RD, LDN * Fidelina Owens MD - 12/31/2022 11:57 AM CDT [facility] Hospitalist Progress note Chief Complaint: GREG SUBJECTIVE: Patient seen and examined Labs reviewed Patient received HD yesterday Comfortable lying in bed Denies any chest pain or shortness of breath Tolerating p.o. diet Generalized weakness present No fever ROS: All other systems reviewed and negative except above Blood pressure 118/81, pulse 88, temperature 97.4 ??F (36.3 ??C), temperature source Oral, resp. rate 17, height 1.702 m (5' 7 ), weight 84.5 kg (186 lb 4.6 oz), SpO2 90 %. Physical Exam Constitutional: Appearance: She is well-developed. HENT: Head: Normocephalic. Eyes: Pupils: Pupils are equal, round, and reactive to light. Cardiovascular: Rate and Rhythm: Normal rate. Heart sounds: Normal heart sounds. Pulmonary: Breath sounds: Normal breath sounds. Comments: Bilateral mild Rales heard Abdominal: General: Bowel sounds are normal. Palpations: Abdomen is soft. Tenderness: There is no abdominal tenderness. Musculoskeletal: Cervical back: Normal range of motion. Comments: Not able to lift right arm above shoulder level, decreased range of movement in the rightshoulder Skin: General: Skin is warm and dry. Neurological: Mental Status: She is alert and oriented to person, place, and time. Cranial Nerves: No cranial nerve deficit. Psychiatric: Mood and Affect: Mood normal. LABS:. Recent Labs 12/29/2252512/30/2234112/31/22 1011 WBC 8.54 8.03 9.05 HGB 11.6* 12.2 12.5 HCT 36.5 37.3 39.2 MCV 94.3 93.7 96.3 PLT 224 246 208 RBC 3.87* 3.98* 4.07* Recent Labs Lab 12/29/2252512/30/2234112/31/22 1011 NA 141 141 140 K 4.7 4.6 4.6 CL 112* 107 104 CO2 22.0 25.0 26.7 AGAP 7.0 9.0 9.3 BUN 51* 39* 23* CR 4.15* 3.74* 3.05* GLU 109* 110* 99 CA 8.3* 8.9 9.1 TP 6.0* 6.4 6.7 ALB 2.7* 2.8* 3.0* TBIL 0.4 0.6 0.5 ALKP 88 90 92 AST 9* 20 29 ALT 24 20 24 Recent Labs Lab 12/29/22 0526 INR 0.9 Intake/Output Summary (Last 24 hours) at 12/31/2022 1157 Last data filed at 12/31/2022 0731 Gross per 24 hour Intake 480 ml Output 200 ml Net 280 ml RADIOLOGY : REVIEWED MEDICATIONS Scheduled medications amLODIPine 5 mg Oral Daily aspirin 81 mg Oral Daily cefTRIAXone 1 g Intravenous Q24H furosemide 20 mg Oral Q48H gabapentin 100 mg Oral TID guaiFENesin ER 600 mg Oral BID heparin (porcine) 5,000 Units Subcutaneous 2 times per day ipratropium-albuterol 3 mL Nebulization 2 times daily metoprolol succinate ER 50 mg Oral Daily Infusion PRN acetaminophen, albuterol sulfate HFA, hydrALAZINE, HYDROcodone-acetaminophen, naLOXone, normal saline, ondansetron, polyethylene glycol, polyvinyl alcohol ASSESSMENT/PLAN: GREG on CKD stage IV Hyperphosphatemia Last year baseline creatinine 2.8 Reviewed renal ultrasound done, findings noted Initially was on IV fluids, discontinued now Nephrology on board, s/p right IJ tunneled catheter placed by IR 12/29, received HD 12/29, 12/30 Creatinine 3.05, phosphorus 4.9 today Avoid nephrotoxins Monitor BMP in a.m. Right arm/shoulder pain Previous history of right shoulder surgery Reviewed x-ray of right shoulder, no acute findings, prior arthroplasty noted Pain medications as needed PT/OT evaluation, recommending swing bed Recommend outpatient follow-up with orthopedics Shortness of breath HFpEF Hypertension Reviewed echocardiogram, EF 65% Continue amlodipine, metoprolol Continue Lasix 20 mg every 48 hours IV hydralazine as needed Continue aspirin UTI Urinalysis positive for infection, started on IV Rocephin 12/29 Get urine cultures Reactive hepatitis B panel Reactive hepatitis B core total antibody and hepatitis B surface antibody Recommend outpatient follow-up with PCP/ID DVT prophylaxis Subcu heparin Discussed with RN on the plan PT/OT evaluated and recommending swing bed, discussed with shelter case manager on discharge plan, likely need dialysis set up outpatient upon discharge, likely TTS schedule Total time spent: 52 minutes, more than 50% of time spent in coordination of care and discussing with patient/staff about current medical condition and management Code status: Full Code FIDELINA OWENS MD 11:57 AM 12/31/2022 * Marcella Lopez RN - 12/30/2022 12:42 PM CDTSummary: dialysis 12/30/22 1235 Post Treatment Note Post Treatment Note tolerated tx well, stable run.report given to her floor RN Vital Signs Temp 98.2 ??F (36.8 ??C) Pulse 78 Resp 18 BP (!) 155/76 MAP Calculated 102 MM HG Post Treatment Weight Post-Treatment Weight (kg) 80.8 kg (178 lb 2.1 oz) Additonal Post Treatment Information Time Treatment Ended 1228 Blood Processed 74.4 Net UF removed 0 Post Treatment Access Catheter Locking Solution saline * Moni Mensah PTA - 12/30/2022 12:35 PM CDT Med hold/cancel: Pt currently off the unit at dialysis. Will check back at later time/date as schedule allows. * Cici Rojas NP - 12/30/2022 11:52 AM CDT [facility] Nephrology Progress Note Trisha Lawrence is a 72-year-old female patient. Seen for greg HPI 72-year-old lady with history of chronic kidney disease stage IV, COPD, depression, dyslipidemia, hypertension, ischemic stroke, short memory loss, neuropathy who was admitted on 12/20 due to lethargyand confusion. Patient found to have GREG on CKD. Patient has CKD stage IV, last year creatinine was2.8. On presentation creatinine was found to be 4.7 and BUN 78. I was consulted to manage GREG on CKD. Patient used to follow-up with Dr. Fung, she reports that she transferred care to [facility] at [place], [place]. Subjective Seen and examined on dialysis today and tolerating well without issues. 2. Blood pressures controlled without complaints of lightheadedness or dizziness. 3. Reports she continues to make urine and denies symptoms of dysuria, urgency, or frequency. Current Facility-Administered Medications Medication Dose Route Frequency Provider Last Rate Last Admin acetaminophen (TYLENOL) tablet 650 mg 650 mg Oral Q4H PRN Christopher Roberts III, MD 650 mg at 12/23/22 0920 albuterol sulfate HFA 108 (90 Base) MCG/ACT inhaler 2 puff 2 puff Inhalation Q6H PRN Rigo Trevino MD 2 puff at 12/28/22 0938 amLODIPine (NORVASC) tablet 5 mg 5 mg Oral Daily Toi Zimmerman MD 5 mg at 12/30/22 0824 aspirin chewable tablet 81 mg 81 mg Oral Daily Cici Rojas NP 81 mg at 12/30/22 0825 cefTRIAXone (ROCEPHIN) 1 g in sodium chloride 0.9 % 50 mL IVPB 1 g Intravenous Q24H Fidelina Owens MD Stopped at 12/29/22 1524 furosemide (LASIX) tablet 20 mg 20 mg Oral Q48H Fidelina Owens MD 20 mg at 12/29/22 1538 gabapentin (NEURONTIN) capsule 100 mg 100 mg Oral TID Rigo Trevino MD 100 mg at 12/30/22 0824 guaiFENesin ER (MUCINEX) 12 hr tablet 600 mg 600 mg Oral BID Francisco Soto MD 600 mg at 12/30/22 0824 heparin (porcine) injection 5,000 Units 5,000 Units Subcutaneous 2 times per day Christopher Roberts III, MD 5,000 Units at 12/30/22 0825 hydrALAZINE (APRESOLINE) injection 10 mg 10 mg Intravenous Q6H PRN Fidelina Owens MD HYDROcodone-acetaminophen (NORCO) 5-325 MG tablet 1 tablet 1 tablet Oral Q4H PRN Christopher Roberts III, MD 1 tablet at 12/27/22 1628 ipratropium-albuterol (DUONEB) 0.5-2.5 (3) MG/3ML nebulizer solution 3 mL 3 mL Nebulization 2 timesdaily Fidelina Owens MD metoprolol succinate ER (TOPROL-XL) 24 hr tablet 50 mg 50 mg Oral Daily Toi Zimmerman MD 50 mg at 12/30/22 0824 naLOXone (NARCAN) injection 0.4 mg 0.4 mg Intravenous PRN Christopher Roberts III, MD normal saline 0.9 % flush 3-10 mL 3-10 mL Intravenous PRN Christopher Roberts III, MD ondansetron (ZOFRAN) injection 4 mg 4 mg Intravenous Q8H PRN Christopher Roberts III, MD polyethylene glycol (GLYCOLAX) packet 17 g 17 g Oral Daily PRN Christopher Roberts III, MD polyvinyl alcohol (LIQUIFILM/ARTIFICIAL TEARS) 1.4 % ophthalmic solution 1 drop 1 drop Both Eyes PRN Francisco Soto MD 1 drop at 12/23/22 1523 No Known Allergies Principal Problem: Acute renal failure superimposed on stage 4 chronic kidney disease, unspecified acute renal failuretype ([facility]/HCC) ([facility]) SNOMED CT(R): [id number] RENAL FAILURE Active Problems: Acute renal failure superimposed on chronic kidney disease ([facility]) SNOMED CT(R): [id number] RENAL FAILURE Filed Vitals: 12/30/22 1000 12/30/22 1030 12/30/22 1100 12/30/22 1130 BP: (!) 152/81 (!) 144/67 127/75 136/81 Pulse: 77 81 86 84 Resp: Temp: TempSrc: SpO2: Weight: Height: Last 3 Recorded Weights 12/20/22 0238 Weight: 84.5 kg (186 lb 4.6 oz) Intake/Output Summary (Last 24 hours) at 12/30/2022 1152 Last data filed at 12/29/2022 1535 Gross per 24 hour Intake 240 ml Output 0 ml Net 240 ml Physical Exam: GENERAL: No acute distress, breathing comfortably, 2 L nasal cannula EYES: Extraocular movements intact, sclerae anicteric ENT: Neck supple, septum is midline. LUNG: Clear to auscultation bilaterally, no wheezes, no crackles CVS: Regular rate rhythm, S1 and S2 normal ABDOMEN: Soft, nondistended, Nontender EXT: no lower Ext edema. SKIN: Skin color, texture, turgor normal. No rashes or lesions NEURO: Alert, awake, No gross neuro deficit PSYCH: Appropriate mood and affect ACCESS: Right IJ tunneled dialysis catheter LABs Recent Labs Lab 12/24/2234212/26/2235512/27/2241312/28/2261412/29/2252512/30/22341 NA 144 143 143 142 141 141 K 4.4 4.1 4.4 4.6 4.7 4.6 CL 118* 114* 114* 112* 112* 107 CO2 19.6* 21.5 22.2 21.5 22.0 25.0 AGAP 6.4 7.5 6.8 8.5 7.0 9.0 BUN 37* 40* 45* 52* 51* 39* CR 3.02* 3.52* 3.77* 4.32* 4.15* 3.74* GLU -- 111* 123* 110* 109* 110* CA 8.8 9.0 8.4* 8.9 8.3* 8.9 MAGNESIUM -- -- 2.1 2.3 2.4 2.3 PHOS -- 4.6 5.0* 6.1* 5.9* 4.7 Recent Labs Lab 12/27/2241312/28/2261412/29/2252512/30/22341 WBC 11.66* 10.18 8.54 8.03 RBC 4.11 3.98* 3.87* 3.98* HGB 12.4 12.0 11.6* 12.2 HCT 38.6 37.7 36.5 37.3 MCV 93.9 94.7 94.3 93.7 MCH 30.2 30.2 30.0 30.7 MCHC 32.1* 31.8* 31.8* 32.7* PLT 213 228 224 246 RDW 13.8 13.8 13.9 13.9 MPV 9.7 10.7* 10.2 10.9* Assessment/Plan: 72-year-old lady with history of chronic kidney disease stage IV, COPD, depression, dyslipidemia, hypertension, ischemic stroke, short memory loss, neuropathy who was admitted on 12/20 due to lethargyand confusion. Patient found to have GREG on CKD. 1. GREG on CKD stage IV -Patient has CKD stage IV ; she reports that she transferred care to nephrology group at [place], [place]. -Last year creatinine was 2.8. Patient's son reports that her autos disassembler has discussed dialysis with them. Per son, her EGFR has ranged 20-25 in the past year. -On presentation creatinine was found to be 4.7 and BUN 78. -CT abdomen:small bilateral kidneys with subcentimeter cystic foci demonstrating internal density. No hydronephrosis. -BUN and creatinine improved with IVF but then worsened -restarted on lasix 20 mg every 48 hours -discussed with patient's son, Zack, who agreed to HD initiation given no improvement in creatininenor symptoms -Tunneled hemodialysis catheter placed on 12/29/2022 with a 2-hour session of dialysis following. -Plan for another dialysis session today for 3 hours on a 2K and 2.25 And we will tentatively plan on a TTS schedule going forward. -Outpatient dialysis placement pending. 2.HTN -Blood Pressure controlled on amlodipine and metoprolol 3.Anemia of chronic disease Hemoglobin stable at 11.6. No indication for IESHA 4.FEN Bicarb of 25. Discontinuing sodium bicarbonate as she is now on dialysis. 5.Renal osteodystrophy Calcium of 8.9 and phosphorus of 4.7. Anticipate improvement with phosphorus with initiation of dialysis. We will continue to monitor for any binder needs. 6. Disposition. Stable. Thank you for allowing me to participate in the care of this patient. We will continue to follow this patient with you. Please contact us with further questions. CICI ROJAS NP 12/30/2022 Cosigned by Ana Maria Banks MD at 12/30/2022 3:20 PM CDT Associated attestation - Ana Maria Banks MD - 12/30/2022 3:20 PM CDT I, ANA MARIA BANKS MD, participated in the care of this patient today and discussed the plan of care with NAHUN Alvares, who shared in this visit. I have reviewed the NAHUN's documentation and agree with the findings except as I have documented. I personally spent 7 minutes, caring for this patient. ANA MARIA BANKS MD * Fidelina Owens MD - 12/30/2022 11:16 AM CDT [facility] Hospitalist Progress note Chief Complaint: GREG SUBJECTIVE: Patient seen and examined Labs reviewed S/p HD yesterday Getting HD again today, seen during dialysis session Denies any chest pain or shortness of breath Tolerating p.o. diet Generalized weakness present No fever ROS: All other systems reviewed and negative except above Blood pressure 127/75, pulse 86, temperature 97.7 ??F (36.5 ??C), temperature source Oral, resp. rate 18, height 1.702 m (5' 7 ), weight 84.5 kg (186 lb 4.6 oz), SpO2 96 %. Physical Exam Constitutional: Appearance: She is well-developed. HENT: Head: Normocephalic. Eyes: Pupils: Pupils are equal, round, and reactive to light. Cardiovascular: Rate and Rhythm: Normal rate. Heart sounds: Normal heart sounds. Pulmonary: Breath sounds: Normal breath sounds. Comments: Bilateral mild Rales heard Abdominal: General: Bowel sounds are normal. Palpations: Abdomen is soft. Tenderness: There is no abdominal tenderness. Musculoskeletal: Cervical back: Normal range of motion. Comments: Not able to lift right arm above shoulder level, decreased range of movement in the rightshoulder Skin: General: Skin is warm and dry. Neurological: Mental Status: She is alert and oriented to person, place, and time. Cranial Nerves: No cranial nerve deficit. Psychiatric: Mood and Affect: Mood normal. LABS:. Recent Labs 12/28/2261412/29/2252512/30/22341 WBC 10.18 8.54 8.03 HGB 12.0 11.6* 12.2 HCT 37.7 36.5 37.3 MCV 94.7 94.3 93.7 PLT 228 224 246 RBC 3.98* 3.87* 3.98* Recent Labs Lab 12/28/2261412/29/2252512/30/22341 NA 142 141 141 K 4.6 4.7 4.6 CL 112* 112* 107 CO2 21.5 22.0 25.0 AGAP 8.5 7.0 9.0 BUN 52* 51* 39* CR 4.32* 4.15* 3.74* GLU 110* 109* 110* CA 8.9 8.3* 8.9 TP 6.2* 6.0* 6.4 ALB 2.8* 2.7* 2.8* TBIL 0.8 0.4 0.6 ALKP 85 88 90 AST 16 9* 20 ALT 31 24 20 Recent Labs Lab 12/29/22 0526 INR 0.9 Intake/Output Summary (Last 24 hours) at 12/30/2022 1116 Last data filed at 12/29/2022 1535 Gross per 24 hour Intake 240 ml Output 0 ml Net 240 ml RADIOLOGY : REVIEWED MEDICATIONS Scheduled medications amLODIPine 5 mg Oral Daily aspirin 81 mg Oral Daily cefTRIAXone 1 g Intravenous Q24H furosemide 20 mg Oral Q48H gabapentin 100 mg Oral TID guaiFENesin ER 600 mg Oral BID heparin (porcine) 5,000 Units Subcutaneous 2 times per day ipratropium-albuterol 3 mL Nebulization 2 times daily metoprolol succinate ER 50 mg Oral Daily Infusion PRN acetaminophen, albuterol sulfate HFA, hydrALAZINE, HYDROcodone-acetaminophen, naLOXone, normal saline, ondansetron, polyethylene glycol, polyvinyl alcohol ASSESSMENT/PLAN: GREG on CKD stage IV Hyperphosphatemia Last year baseline creatinine 2.8 Reviewed renal ultrasound done, findings noted Initially was on IV fluids, discontinued now Nephrology on board, discussed with Dr. Ruth, likely need HD, s/p right IJ tunneled catheter placedby IR 01/15, received HD yesterday, getting HD today Creatinine this morning 3.74, phosphorus 4.7 Avoid nephrotoxins Monitor BMP in a.m. On sodium bicarbonate tablets as per nephrology Right arm/shoulder pain Previous history of right shoulder surgery Reviewed x-ray of right shoulder, no acute findings, prior arthroplasty pending Pain medications as needed PT/OT evaluation, recommending swing bed Recommend outpatient follow-up with orthopedics Shortness of breath HFpEF Hypertension Reviewed echocardiogram, EF 65% Continue amlodipine, metoprolol Continue Lasix 20 mg every 48 hours IV hydralazine as needed Continue aspirin UTI Urinalysis positive for infection, started on IV Rocephin Get urine cultures Reactive hepatitis B panel Reactive hepatitis B core total antibody and hepatitis B surface antibody Recommend outpatient follow-up with PCP/ID DVT prophylaxis Subcu heparin Discussed with RN on the plan PT/OT evaluated and recommending swing bed, discussed with shelter case manager on discharge plan, likely need dialysis set up outpatient upon discharge, likely TTS schedule Total time spent: 54 minutes, more than 50% of time spent in coordination of care and discussing with patient/staff about current medical condition and management Code status: Full Code FIDELINA OWENS MD 11:16 AM 12/30/2022 * Fidelina Owens MD - 12/29/2022 6:02 PM CDT [facility] Hospitalist Progress note Chief Complaint: GREG SUBJECTIVE: Patient seen and examined Labs reviewed Patient underwent right internal jugular tunneled catheter placement by IR today and scheduled for dialysis Seen during dialysis decision Breathing okay, denies any chest pain Generalized weakness present No fever ROS: All other systems reviewed and negative except above Blood pressure 128/68, pulse 92, temperature 97.2 ??F (36.2 ??C), temperature source Oral, resp. rate 19, height 1.702 m (5' 7 ), weight 84.5 kg (186 lb 4.6 oz), SpO2 94 %. Physical Exam Constitutional: Appearance: She is well-developed. HENT: Head: Normocephalic. Eyes: Pupils: Pupils are equal, round, and reactive to light. Cardiovascular: Rate and Rhythm: Normal rate. Heart sounds: Normal heart sounds. Pulmonary: Breath sounds: Normal breath sounds. Comments: Bilateral mild Rales heard Abdominal: General: Bowel sounds are normal. Palpations: Abdomen is soft. Tenderness: There is no abdominal tenderness. Musculoskeletal: Cervical back: Normal range of motion. Comments: Not able to lift right arm above shoulder level, decreased range of movement in the rightshoulder Skin: General: Skin is warm and dry. Neurological: Mental Status: She is alert and oriented to person, place, and time. Cranial Nerves: No cranial nerve deficit. Psychiatric: Mood and Affect: Mood normal. LABS:. Recent Labs 12/27/2241312/28/2215 12/29/22 0526 WBC 11.66* 10.18 8.54 HGB 12.4 12.0 11.6* HCT 38.6 37.7 36.5 MCV 93.9 94.7 94.3 PLT 213 228 224 RBC 4.11 3.98* 3.87* Recent Labs Lab 12/27/224 12/28/22 0615 12/29/22 0526 NA 143 142 141 K 4.4 4.6 4.7 CL 114* 112* 112* CO2 22.2 21.5 22.0 AGAP 6.8 8.5 7.0 BUN 45* 52* 51* CR 3.77* 4.32* 4.15* GLU 123* 110* 109* CA 8.4* 8.9 8.3* TP 6.2* 6.2* 6.0* ALB 2.8* 2.8* 2.7* TBIL 0.5 0.8 0.4 ALKP 86 85 88 AST 17 16 9* ALT 34 31 24 Recent Labs Lab 12/29/22 0526 INR 0.9 Intake/Output Summary (Last 24 hours) at 12/29/2022 1802 Last data filed at 12/29/2022 1535 Gross per 24 hour Intake 480 ml Output 400 ml Net 80 ml RADIOLOGY : REVIEWED MEDICATIONS Scheduled medications amLODIPine 5 mg Oral Daily [START ON 12/30/2022] aspirin 81 mg Oral Daily cefTRIAXone 1 g Intravenous Q24H furosemide 20 mg Oral Q48H gabapentin 100 mg Oral TID guaiFENesin ER 600 mg Oral BID heparin (porcine) 5,000 Units Subcutaneous 2 times per day ipratropium-albuterol 3 mL Nebulization Q4H metoprolol succinate ER 50 mg Oral Daily sodium bicarbonate 1,300 mg Oral BID Infusion PRN acetaminophen, albuterol sulfate HFA, hydrALAZINE, HYDROcodone-acetaminophen, naLOXone, normal saline, ondansetron, polyethylene glycol, polyvinyl alcohol ASSESSMENT/PLAN: GREG on CKD stage IV Hyperphosphatemia Last year baseline creatinine 2.8 Creatinine today 4.15 and phosphorus 5.9 Reviewed renal ultrasound done, findings noted Initially was on IV fluids, discontinued now Nephrology on board, discussed with Dr. Ruth, likely need HD, s/p right IJ tunneled catheter placedby IR 01/15, getting HD today Avoid nephrotoxins Monitor BMP in a.m. On sodium bicarbonate tablets as per nephrology Right arm/shoulder pain Previous history of right shoulder surgery Reviewed x-ray of right shoulder, no acute findings, prior arthroplasty pending Pain medications as needed PT/OT evaluation, recommending swing bed Recommend outpatient follow-up with orthopedics Shortness of breath HFpEF Hypertension Reviewed echocardiogram, EF 65% Continue amlodipine, metoprolol Continue Lasix 20 mg every 48 hours IV hydralazine as needed Continue aspirin UTI Urinalysis positive for infection, started on IV Rocephin Get urine cultures DVT prophylaxis Subcu heparin Discussed with RN on the plan PT/OT evaluated and recommending swing bed, discussed with shelter case manager on discharge plan, likely need dialysis set up outpatient upon discharge Total time spent: 55 minutes, more than 50% of time spent in coordination of care and discussing with patient/staff about current medical condition and management Code status: Full Code FIDELINA OWENS MD 6:02 PM 12/29/2022 * Cici Rojas NP - 12/29/2022 2:35 PM CDT [facility] Nephrology Progress Note Trisha Lawrence is a 72-year-old female patient. Seen for greg HPI 72-year-old lady with history of chronic kidney disease stage IV, COPD, depression, dyslipidemia, hypertension, ischemic stroke, short memory loss, neuropathy who was admitted on 12/20 due to lethargyand confusion. Patient found to have GREG on CKD. Patient has CKD stage IV, last year creatinine was2.8. On presentation creatinine was found to be 4.7 and BUN 78. I was consulted to manage GREG on CKD. Patient used to follow-up with Dr. Fung, she reports that she transferred care to [facility] at [place], [place]. Subjective Seen and examined on dialysis today and tolerating well without issues. 2. Pressures controlled without complaints of lightheadedness or dizziness. 3. Reports she continues to make urine and denies symptoms of dysuria, urgency, or frequency. Current Facility-Administered Medications Medication Dose Route Frequency Provider Last Rate Last Admin acetaminophen (TYLENOL) tablet 650 mg 650 mg Oral Q4H PRN Christopher Roberts III, MD 650 mg at 12/23/22 0920 albuterol sulfate HFA 108 (90 Base) MCG/ACT inhaler 2 puff 2 puff Inhalation Q6H PRN Rigo Trevino MD 2 puff at 12/28/22 0938 amLODIPine (NORVASC) tablet 5 mg 5 mg Oral Daily Toi Zimmerman MD 5 mg at 12/28/22 0906 cefTRIAXone (ROCEPHIN) 1 g in sodium chloride 0.9 % 50 mL IVPB 1 g Intravenous Q24H Fidelina Owens MD 100 mL/hr at 12/29/22 1417 1 g at 12/29/22 1417 furosemide (LASIX) tablet 20 mg 20 mg Oral Q48H Fidelina Owens MD 20 mg at 12/27/22 0936 gabapentin (NEURONTIN) capsule 100 mg 100 mg Oral TID Rigo Trevino MD 100 mg at 12/28/222011 guaiFENesin ER (MUCINEX) 12 hr tablet 600 mg 600 mg Oral BID Francisco Soto MD 600 mg at 12/28/222011 heparin (porcine) injection 5,000 Units 5,000 Units Subcutaneous 2 times per day Christopher Roberts III, MD 5,000 Units at 12/28/222011 hydrALAZINE (APRESOLINE) injection 10 mg 10 mg Intravenous Q6H PRN Fidelina Owens MD HYDROcodone-acetaminophen (NORCO) 5-325 MG tablet 1 tablet 1 tablet Oral Q4H PRN Christopher Roberts III, MD 1 tablet at 12/27/22 1628 ipratropium-albuterol (DUONEB) 0.5-2.5 (3) MG/3ML nebulizer solution 3 mL 3 mL Nebulization Q4H Francisco Soto MD 3 mL at 12/29/22 0653 metoprolol succinate ER (TOPROL-XL) 24 hr tablet 50 mg 50 mg Oral Daily Toi Zimmerman MD 50 mg at 12/28/22 0906 naLOXone (NARCAN) injection 0.4 mg 0.4 mg Intravenous PRN Christopher Roberts III, MD normal saline 0.9 % flush 3-10 mL 3-10 mL Intravenous PRN Christopher Roberts III, MD ondansetron (ZOFRAN) injection 4 mg 4 mg Intravenous Q8H PRN Christopher Roberts III, MD polyethylene glycol (GLYCOLAX) packet 17 g 17 g Oral Daily PRN Christopher Roberts III, MD polyvinyl alcohol (LIQUIFILM/ARTIFICIAL TEARS) 1.4 % ophthalmic solution 1 drop 1 drop Both Eyes PRN Francisco Soto MD 1 drop at 12/23/22 1523 sodium bicarbonate tablet 1,300 mg 1,300 mg Oral BID Adan Horton MD 1,300 mg at 12/28/222010 No Known Allergies Principal Problem: Acute renal failure superimposed on stage 4 chronic kidney disease, unspecified acute renal failuretype ([facility]) ([facility]) SNOMED CT(R): [id number] RENAL FAILURE Active Problems: Acute renal failure superimposed on chronic kidney disease ([facility]/HCC) SNOMED CT(R): [id number] RENAL FAILURE Filed Vitals: 12/29/22 1230 12/29/22 1300 12/29/22 1327 12/29/22 1330 BP: (!) 148/88 (!) 155/74 (!) 118/101 (!) 143/77 Pulse: 61 75 74 81 Resp: 19 Temp: 97.2 ??F (36.2 ??C) TempSrc: Oral SpO2: Weight: Height: Last 3 Recorded Weights 12/20/22 0238 Weight: 84.5 kg (186 lb 4.6 oz) Intake/Output Summary (Last 24 hours) at 12/29/2022 1435 Last data filed at 12/29/2022 1330 Gross per 24 hour Intake 240 ml Output 400 ml Net -160 ml Physical Exam: GENERAL: No acute distress, breathing comfortably, 2 L nasal cannula EYES: Extraocular movements intact, sclerae anicteric ENT: Neck supple, septum is midline. LUNG: Clear to auscultation bilaterally, no wheezes, no crackles CVS: Regular rate rhythm, S1 and S2 normal ABDOMEN: Soft, nondistended, Nontender EXT: no lower Ext edema. SKIN: Skin color, texture, turgor normal. No rashes or lesions NEURO: Alert, awake, No gross neuro deficit PSYCH: Appropriate mood and affect ACCESS: Right IJ tunneled dialysis catheter LABs Recent Labs Lab 12/23/22 0921 12/24/22 0343 12/26/22 0356 12/27/224 12/28/22 0615 12/29/22 0526 NA 143 144 143 143 142 141 K 4.7 4.4 4.1 4.4 4.6 4.7 CL 119* 118* 114* 114* 112* 112* CO2 16.8* 19.6* 21.5 22.2 21.5 22.0 AGAP 7.2 6.4 7.5 6.8 8.5 7.0 BUN 38* 37* 40* 45* 52* 51* CR 3.12* 3.02* 3.52* 3.77* 4.32* 4.15* GLU -- -- 111* 123* 110* 109* CA 8.8 8.8 9.0 8.4* 8.9 8.3* MAGNESIUM -- -- -- 2.1 2.3 2.4 PHOS -- -- 4.6 5.0* 6.1* 5.9* Recent Labs Lab 12/27/2241312/28/2215 12/29/22 0526 WBC 11.66* 10.18 8.54 RBC 4.11 3.98* 3.87* HGB 12.4 12.0 11.6* HCT 38.6 37.7 36.5 MCV 93.9 94.7 94.3 MCH 30.2 30.2 30.0 MCHC 32.1* 31.8* 31.8* PLT 213 228 224 RDW 13.8 13.8 13.9 MPV 9.7 10.7* 10.2 Assessment/Plan: 72-year-old lady with history of chronic kidney disease stage IV, COPD, depression, dyslipidemia, hypertension, ischemic stroke, short memory loss, neuropathy who was admitted on 12/20 due to lethargyand confusion. Patient found to have GREG on CKD. 1. GREG on CKD stage IV -Patient has CKD stage IV ; she reports that she transferred care to nephrology group at [place], [place]. -Last year creatinine was 2.8. Patient's son reports that her autos disassembler has discussed dialysis with them. Per son, her EGFR has ranged 20-25 in the past year. -On presentation creatinine was found to be 4.7 and BUN 78. -CT abdomen:small bilateral kidneys with subcentimeter cystic foci demonstrating internal density. No hydronephrosis. -BUN and creatinine improved with IVF but then worsened -restarted on lasix 20 mg every 48 hours -discussed with patient's son, Zack, who agreed to HD initiation given no improvement in creatininenor symptoms -Tunneled hemodialysis catheter placed on 12/29/2022 with a 2-hour session of dialysis following. -Plan for another dialysis session tomorrow for 3 hours and we will tentatively plan on a TTS schedule going forward. -Outpatient dialysis placement pending. 2.HTN -Pressure controlled on amlodipine and metoprolol 3.Anemia of chronic disease Hemoglobin stable at 11.6. No indication for IESHA 4.FEN Bicarb of 22. Currently on sodium bicarbonate 1800 mg twice daily. Plan to discontinue in the next day or 2 as she is now initiated on dialysis. 5.Renal osteodystrophy Calcium of 8.3 and phosphorus of 5.9. Anticipate improvement with phosphorus with initiation of dialysis. We will continue to monitor for any binder needs. 6. Disposition. Stable. Thank you for allowing me to participate in the care of this patient. We will continue to follow this patient with you. Please contact us with further questions. CICI ROJAS NP 12/29/2022 Cosigned by Ana Maria Banks MD at 12/29/2022 5:50 PM CDT Associated attestation - Ana Maria Banks MD - 12/29/2022 5:50 PM CDT Seen and examined on dialysis, agree with note as above, saw in conjunction with Cici Torresurse practitioner, evaluate for roughly 6 minutes. * Seth Cardona RN - 12/29/2022 1:37 PM CDT 12/29/22 1330 Post Treatment Note Post Treatment Note 2 hours Tx completed, no UF removed, catheter care done per policy, endorsed tothe primary RN Vital Signs Temp 97.2 ??F (36.2 ??C) Temp src Oral Pulse 81 Heart Rate Source Monitor Resp 19 BP (!) 143/77 MAP Calculated 99 MM HG BP Location Right arm BP Method Automatic Patient Position Lying Cuff size Adult Regular Post Treatment Weight Post-Treatment Weight (kg) 82.8 kg (182 lb 8.7 oz) Additonal Post Treatment Information Time Treatment Ended 1327 Dialyzer Cleared Good Blood Processed 22.3 Net UF removed 0 Post Treatment Access Catheter Locking Solution NS * CURLY Minaya - 12/29/2022 12:28 PM CDT Attempted to see pt for OT session. Pt MARGARET in dialysis. OT will check back later as time/schedule allows. * Carlos Herrera PTA - 12/29/2022 12:19 PM CDT PT Treatment Discharge Recommendation: Swing bed unit DME equipment recommendation: 2 wheeled walker Activity Recommendation for supervisor matrix: up with assist of1,gtbelt and walker to chair and commode . 12/29/22 1212 Therapy Visit Ordering Provider Christopher Roberts III, MD Subjective RN gavepermission to seept.Pt willing to try Reason for admission Pt admitted to hospital after a fall at home; acute renal failure supimposed on stage 4 chronic kidney disease......Therapy orders: Eval and Treat......PMH: CVA with R sided residual deficits, CKD, COPD, depression, displaced R proximal humeral fx, HLD, neuropathy, and UTI. Verified Two Patient Identifiers Yes Patient consents to therapy Yes Acute Inpatient PT Time Calculation PT Start Time 0730 PT Stop Time 0800 PT Time Calculation (min) 30 min Precautions General Precautions Fall Risk;Chair Alarm;Multiple lines Instructed on Precautions Yes;Verbalizes understanding Other tele, IV Home Living Home Living Comments Per eval, pt lives alone in a one-story home with 4 ALBERT with bilateral rails. Pt has a tub shower with grab bars and shower chair and standard toilet. Prior to admission, patientambulated household distances and completed ADLs independently. Pt does not leave home, and states she would need assistance to ascend/descend stairs. Pt has a cane and a walker at home. Her son lives nearby and is home in the evenings. Pain Pain Patient does not offer or c/o pain Activity Tolerance Pre-activity VS spo2 was at 95% on 2l/hfnc Post Activity VS Recovery spo2 was at 91% after mobility Cognition Overall Cognitive Status WFL Arousal/Alertness Appropriate responses to stimuli Attention Span Appears intact Memory Appears intact Orientation Level Oriented X4 Following Commands Follows all commands and directions without difficulty Safety Judgment Good awareness of safety precautions Awareness of Errors Good awareness of errors made Deficits Fully aware of deficits Problem Solving Able to problem solve independently Motor Planning Appears intact Perseveration Not present Initiation Appears intact Bed Mobility Supine to Sit Contact guard assist Other (Comment) head of bed flat; assist to roll to the lt TRANSFERS Sit to Stand Contact guard assist Bed to Chair Contact guard assist Other (Comment) Pttransfers sit to/from stand from the bed and chair with arms in the room Gait Gait Assistance Contact guard assist Assistive Device 2 Wheeled walker Distance Ambulated (ft) 12 ft (12 feet and 6 feet) Other (Comment) Pt amb with step to gt pattern with cues to lead with rt leg first.If pt did not lead with rt leg first, she required increased assist to wt shift and move her rt leg. Balance Sitting - Static Independent Sitting - Dynamic Independent Standing - Static CGA;Support of both upper extremities Standing - Dynamic CGA;Support of both upper extremities Other (Comment) Pt fatigues quickly but no LOB during this session PT Assessment PT Assessment Pt was able to prgress with bed mobility ,transfers and short distance amb this session.Pt did fatigue easily but was able to continue to work through her fatigue.Pt requires cues for safety throughout mobility .She is limite dby pain in her rt side,weakness and acute decondtioning .Recommend swing bed prior to going home to increase her strength activitytolerance and functionla mobility to become independent again Education: Primary Learners Name: Trisha Lawrence Primary Language of learner: Moldovan Patient was educated on precautions exercises transfers balance bed mobility gait safety energy conservation joint protection. Education was completed one to one verbal hands-on this date. Preference of learning new concepts one to one verbal hands-on Barriers to education this date were fatigue anxious physical impairment. Response to education this date demos with verbal cues needs reinforcement needs follow up needs assistance. * Tanvi Keane RN - 12/29/2022 10:34 AM CDT 12/29/22 1015 Interdisciplinary Group Conference Team Members Present Physician;Case/Care management Physician present for group conference Dr Owens [facility] Barriers to Discharge Barriers No Barrier- Medical Milestone in Process No Barrier- Medical Milestone in Process follow up new dialysis, will be here over w/e, needs placement [facility], ref to [facility], will need hep b labs faxed when available * Fidelina Owens MD - 12/28/2022 5:43 PM CDT [facility] Hospitalist Progress note Chief Complaint: GREG SUBJECTIVE: Patient seen and examined Labs reviewed Patient comfortable lying in bed No acute overnight events Mild pain in the right shoulder Generalized weakness/fatigue present No fever ROS: All other systems reviewed and negative except above Blood pressure 127/63, pulse 86, temperature 98.1 ??F (36.7 ??C), resp. rate 18, height 1.702 m (5'7 ), weight 84.5 kg (186 lb 4.6 oz), SpO2 96 %. Physical Exam Constitutional: Appearance: She is well-developed. HENT: Head: Normocephalic. Eyes: Pupils: Pupils are equal, round, and reactive to light. Cardiovascular: Rate and Rhythm: Normal rate. Heart sounds: Normal heart sounds. Pulmonary: Breath sounds: Normal breath sounds. Comments: Bilateral mild Rales heard Abdominal: General: Bowel sounds are normal. Palpations: Abdomen is soft. Tenderness: There is no abdominal tenderness. Musculoskeletal: Cervical back: Normal range of motion. Comments: Not able to lift right arm above shoulder level, decreased range of movement in the rightshoulder Skin: General: Skin is warm and dry. Neurological: Mental Status: She is alert and oriented to person, place, and time. Cranial Nerves: No cranial nerve deficit. Psychiatric: Mood and Affect: Mood normal. LABS:. Recent Labs 12/27/2241312/28/22614 WBC 11.66* 10.18 HGB 12.4 12.0 HCT 38.6 37.7 MCV 93.9 94.7 PLT 213 228 RBC 4.11 3.98* Recent Labs Lab 12/26/22 0356 12/27/2241312/28/22614 NA 143 143 142 K 4.1 4.4 4.6 CL 114* 114* 112* CO2 21.5 22.2 21.5 AGAP 7.5 6.8 8.5 BUN 40* 45* 52* CR 3.52* 3.77* 4.32* GLU 111* 123* 110* CA 9.0 8.4* 8.9 TP -- 6.2* 6.2* ALB 2.8* 2.8* 2.8* TBIL -- 0.5 0.8 ALKP -- 86 85 AST -- 17 16 ALT -- 34 31 No results for input(s): INR in the last 168 hours. Intake/Output Summary (Last 24 hours) at 12/28/2022 1743 Last data filed at 12/28/2022 1300 Gross per 24 hour Intake 360 ml Output -- Net 360 ml RADIOLOGY : REVIEWED MEDICATIONS Scheduled medications amLODIPine 5 mg Oral Daily furosemide 20 mg Oral Q48H gabapentin 100 mg Oral TID guaiFENesin ER 600 mg Oral BID heparin (porcine) 5,000 Units Subcutaneous 2 times per day ipratropium-albuterol 3 mL Nebulization Q4H metoprolol succinate ER 50 mg Oral Daily sodium bicarbonate 1,300 mg Oral BID Infusion PRN acetaminophen, albuterol sulfate HFA, hydrALAZINE, HYDROcodone-acetaminophen, naLOXone, normal saline, ondansetron, polyethylene glycol, polyvinyl alcohol ASSESSMENT/PLAN: GREG on CKD stage IV Hyperphosphatemia Last year baseline creatinine 2.8 Creatinine this morning trending up to 4.32, phosphorus 6.1 Reviewed renal ultrasound done, findings noted Initially was on IV fluids, discontinued now Nephrology on board, discussed with Dr. Ruth, likely need HD, ordered for tunneled catheter by IR, appreciate recommendations Avoid nephrotoxins Monitor BMP in a.m. On sodium bicarbonate tablets as per nephrology Right arm/shoulder pain Previous history of right shoulder surgery Reviewed x-ray of right shoulder, no acute findings, prior arthroplasty pending Pain medications as needed PT/OT evaluation, recommending swing bed Recommend outpatient follow-up with orthopedics Shortness of breath HFpEF Hypertension Reviewed echocardiogram, EF 65% Continue amlodipine, metoprolol Continue Lasix 20 mg every 48 hours Add IV hydralazine as needed Continue aspirin DVT prophylaxis Subcu heparin Discussed with RN on the plan PT/OT evaluated and recommending swing bed, discussed with shelter case manager on discharge plan, likely need dialysis set up outpatient upon discharge Total time spent: 54 minutes, more than 50% of time spent in coordination of care and discussing with patient/staff about current medical condition and management Code status: Full Code FIDELINA OWENS MD 5:43 PM 12/28/2022 * Kandi Ruth, - 12/28/2022 3:43 PM CDT [facility] Nephrology Progress Note Trisha Lawrence is a 72-year-old female patient. Seen for greg HPI 72-year-old lady with history of chronic kidney disease stage IV, COPD, depression, dyslipidemia, hypertension, ischemic stroke, short memory loss, neuropathy who was admitted on 12/20 due to lethargyand confusion. Patient found to have GREG on CKD. Patient has CKD stage IV, last year creatinine was2.8. On presentation creatinine was found to be 4.7 and BUN 78. I was consulted to manage GREG on CKD. Patient used to follow-up with Dr. Fung, she reports that she transferred care to [facility] at [place], [place], Subjective Feeling ok. Denies SOB, edema, urinary symptoms. Per nurse, patient incontinent. Current Facility-Administered Medications Medication Dose Route Frequency Provider Last Rate Last Admin acetaminophen (TYLENOL) tablet 650 mg 650 mg Oral Q4H PRN Christopher Roberts III, MD 650 mg at 12/23/22 0920 albuterol sulfate HFA 108 (90 Base) MCG/ACT inhaler 2 puff 2 puff Inhalation Q6H PRN Rigo Trevino MD 2 puff at 12/28/22 0938 amLODIPine (NORVASC) tablet 5 mg 5 mg Oral Daily Toi Zimmerman MD 5 mg at 12/28/22 0906 furosemide (LASIX) tablet 20 mg 20 mg Oral Q48H Fidelina Owens MD 20 mg at 12/27/22 0936 gabapentin (NEURONTIN) capsule 100 mg 100 mg Oral TID Rigo Trevino MD 100 mg at 12/28/22 0906 guaiFENesin ER (MUCINEX) 12 hr tablet 600 mg 600 mg Oral BID Francisco Soto MD 600 mg at 12/28/22 0906 heparin (porcine) injection 5,000 Units 5,000 Units Subcutaneous 2 times per day Christopher Roberts III, MD 5,000 Units at 12/28/22 0906 hydrALAZINE (APRESOLINE) injection 10 mg 10 mg Intravenous Q6H PRN Fidelina Owens MD HYDROcodone-acetaminophen (NORCO) 5-325 MG tablet 1 tablet 1 tablet Oral Q4H PRN Christopher Roberts III, MD 1 tablet at 12/27/22 1628 ipratropium-albuterol (DUONEB) 0.5-2.5 (3) MG/3ML nebulizer solution 3 mL 3 mL Nebulization Q4H Francisco Soto MD 3 mL at 12/28/22 1520 metoprolol succinate ER (TOPROL-XL) 24 hr tablet 50 mg 50 mg Oral Daily Toi Zimmerman MD 50 mg at 12/28/22 0906 naLOXone (NARCAN) injection 0.4 mg 0.4 mg Intravenous PRN Christopher Roberts III, MD normal saline 0.9 % flush 3-10 mL 3-10 mL Intravenous PRN Christopher Roberts III, MD ondansetron (ZOFRAN) injection 4 mg 4 mg Intravenous Q8H PRN Christopher Roberts III, MD polyethylene glycol (GLYCOLAX) packet 17 g 17 g Oral Daily PRN Christopher Roberts III, MD polyvinyl alcohol (LIQUIFILM/ARTIFICIAL TEARS) 1.4 % ophthalmic solution 1 drop 1 drop Both Eyes PRN Francisco Soto MD 1 drop at 12/23/22 1523 sodium bicarbonate tablet 1,300 mg 1,300 mg Oral BID Adan Horton MD 1,300 mg at 12/28/22 0906 No Known Allergies Principal Problem: Acute renal failure superimposed on stage 4 chronic kidney disease, unspecified acute renal failuretype (HHS/HCC) ([facility]/HCC) SNOMED CT(R): [id number] RENAL FAILURE Active Problems: Acute renal failure superimposed on chronic kidney disease (CMS/HCC) SNOMED CT(R): [id number] RENAL FAILURE Filed Vitals: 12/26/22195512/27/22195412/28/22 0813 12/28/22 0957 BP: (!) 148/83 112/76 127/63 Pulse: 81 73 86 Resp: 18 18 Temp: 97.4 ??F (36.3 ??C) 97.7 ??F (36.5 ??C) 98.1 ??F (36.7 ??C) TempSrc: Axillary Oral SpO2: 92% 94% 92% 96% Weight: Height: Last 3 Recorded Weights 12/20/22 0238 Weight: 84.5 kg (186 lb 4.6 oz) Intake/Output Summary (Last 24 hours) at 12/28/2022 1543 Last data filed at 12/28/2022 1300 Gross per 24 hour Intake 360 ml Output -- Net 360 ml Physical Exam: GENERAL: No acute distress, breathing comfortably EYES: Extraocular movements intact, sclerae anicteric ENT: Neck supple, septum is midline. LUNG: Clear to auscultation bilaterally, no wheezes, no crackles CVS: Regular rate rhythm, S1 and S2 normal ABDOMEN: Soft, nondistended, Nontender EXT: no lower Ext edema. SKIN: Skin color, texture, turgor normal. No rashes or lesions NEURO: Alert, awake, No gross neuro deficit PSYCH: Appropriate mood and affect LABs Recent Labs Lab 12/22/22 0444 12/23/22 0921 12/24/22 0343 12/26/22 0356 12/27/22 0414 12/28/22 0615 NA 146* 143 144 143 143 142 K 4.4 4.7 4.4 4.1 4.4 4.6 CL 121* 119* 118* 114* 114* 112* CO2 15.9* 16.8* 19.6* 21.5 22.2 21.5 AGAP 9.1 7.2 6.4 7.5 6.8 8.5 BUN 48* 38* 37* 40* 45* 52* CR 3.29* 3.12* 3.02* 3.52* 3.77* 4.32* GLU 111* -- -- 111* 123* 110* CA 8.5 8.8 8.8 9.0 8.4* 8.9 MAGNESIUM -- -- -- -- 2.1 2.3 PHOS -- -- -- 4.6 5.0* 6.1* Recent Labs Lab 12/22/22 0952 12/27/22 0414 12/28/22 0615 WBC 8.89 11.66* 10.18 RBC 4.12 4.11 3.98* HGB 12.4 12.4 12.0 HCT 39.1 38.6 37.7 MCV 94.9 93.9 94.7 MCH 30.1 30.2 30.2 MCHC 31.7* 32.1* 31.8* PLT 261 213 228 RDW 13.7 13.8 13.8 MPV 10.2 9.7 10.7* Assessment/Plan: 72-year-old lady with history of chronic kidney disease stage IV, COPD, depression, dyslipidemia, hypertension, ischemic stroke, short memory loss, neuropathy who was admitted on 12/20 due to lethargyand confusion. Patient found to have GREG on CKD. Patient reports no nausea, vomiting, diarrhea, NSAID use. 1. GREG on CKD stage IV -Patient has CKD stage IV ; she reports that she transferred care to nephrology group at [place], [place]. -Last year creatinine was 2.8. Patient's son reports that her autos disassembler has discussed dialysis with them. Per son, her EGFR has ranged 20-25 in the past year. -On presentation creatinine was found to be 4.7 and BUN 78. -CT abdomen:small bilateral kidneys with subcentimeter cystic foci demonstrating internal density. No hydronephrosis. -BUN and creatinine improved with IVF but now worse -restarted on lasix -discussed with patient's son, Zack, who agreed to HD initiation tomorrow given no improvement in creatinine nor symptoms -NPO after midnight today -holding AM dose of heparin sq -Holding Aspirin 81mg daily- need to restart after tunneled HD catheter placement 2.HTN -BP better on amlodipine and metoprolol 3.Anemia of chronic disease Hemoglobin stable. No indication for IESHA 4.FEN Bicarb better on sodium bicarb 5.Renal osteodystrophy Calcium and phos in good range. Phos trending up- may need phos binder. Continue to monitor. Dr. Banks starting coverage tomorrow AM. Thank you for allowing me to participate in the care of this patient. We will continue to follow this patient with you. Please contact us with further questions. KANDI RUTH DO 12/28/2022 * Olimpia Canchola RN - 12/28/2022 3:23 AM CDT Problem: Reduced risk for falls/injury Goal: Reduced Risk for Falls/Injury Outcome: Progressing Goal: Reduced Risk of Confusion (Acute vs Chronic) Outcome: Progressing Goal: Reduced Risk of Symptomatic Depression Outcome: Progressing Goal: Reduced Risk of Altered Elimination Outcome: Progressing Goal: Reduced Risk of Dizziness/Vertigo/Balance Outcome: Progressing Goal: Reduced Risk of Polypharmacy Outcome: Progressing Problem: Pain Goal: Patient's pain/discomfort is manageable Description: Assess and monitor patient's pain using appropriate pain scale. Collaborate with interdisciplinary team and initiate plan and interventions as ordered. Re-assess patient's pain level 30 - 60 minutes after pain management intervention. Outcome: Progressing Problem: Safety Goal: Patient will be injury free during hospitalization Description: Assess and monitor vitals signs, neurological status including level of consciousness and orientation. Assess patient's risk for falls and implement fall prevention plan of care and interventions per hospital policy. Ensure arm band on, uncluttered walking paths in room, adequate room lighting, call light and overbed table within reach, bed in low position, wheels locked, side rails up per policy, and non-skid footwear provided. Outcome: Progressing Problem: Daily Care Goal: Daily care needs are met Description: Assess and monitor ability to perform self care and identify potential discharge needs. Outcome: Progressing Problem: Psychosocial Needs Goal: Demonstrates ability to cope with hospitalization/illness Description: Assess and monitor patients ability to cope with his/her illness. Outcome: Progressing Goal: Collaborate with patient/family/caregiver to identify patient specific goals for this hospitalization Outcome: Progressing Problem: Discharge Barriers Goal: Patient's discharge needs are met Description: Collaborate with interdisciplinary team and initiate plans and interventions as needed. Outcome: Progressing * CURLY Minaya - 12/27/2022 4:44 PM CDT OT Treatment Discharge Recommendation: Swing bed unit Activity Recommendation for supervisor matrix: Up with 1-2, gait belt and 2ww. Up to chair/commode 12/27/22 1617 Therapy Visit Reason for admission Pt admitted to hospital after a fall at home; acute renal failure supimposed on stage 4 chronic kidney disease......Therapy orders: Eval and Treat......PMH: CVA with R sided residual deficits, CKD, COPD, depression, displaced R proximal humeral fx, HLD, neuropathy, and UTI. Ordering Provider Christopher Roberts III, MD Acute Inpatient OT Time Calculation OT Start Time 1617 OT Stop Time 1644 OT Time Calculation (min) 27 min Precautions General Precautions Fall Risk;Chair Alarm;Multiple lines Instructed on Precautions Yes;Verbalizes understanding Other tele, IV Home Living Home Living Comments Per eval, pt lives alone in a one-story home with 4 ALBERT with bilateral rails. Pt has a tub shower with grab bars and shower chair and standard toilet. Prior to admission, patientambulated household distances and completed ADLs independently. Pt does not leave home, and states she would need assistance to ascend/descend stairs. Pt has a cane and a walker at home. Her son lives nearby and is home in the evenings. Subjective Subjective RN ok'd therapy session. Pt supine in bed upon entering room. Pt agreeable to session Pain Pain Patient does not offer or c/o pain Activity Tolerance Activity Tolerance Comments Limited by acute weakness and rt ankle pain and rt quadrant pain aroundribs Cognition Overall Cognitive Status WFL Arousal/Alertness Appropriate responses to stimuli Attention Span Appears intact Memory Appears intact Orientation Level Oriented X4 ADL Grooming Assistance Stand by;Sitting in chair Grooming Deficit Brushing hair Toileting Comment Pt incontient of urine needing MaxA to doff soiled depend Bed Mobility Supine to Sit Min assist to left Other (Comment) HOB elevated and use of writers hand Functional Transfers Sit to Stand Contact guard assist Bed to Chair Contact guard assist Functional Mobility Pt stood from EOB and took steps to chair with CGA. Pt stood again from recliner with CGA. Functional mobility around bed to and rested on EOB. Chair brought around bed. Pt stood from EOB and took side steps to chair. Pt brought back around bed in chair. Pt with improved weightshifting and able to take steps without assistance Balance Sitting - Static Independent Sitting - Dynamic Independent Standing - Static CGA;Support of both upper extremities Standing - Dynamic CGA;Support of both upper extremities Other (Comment) Pt fatigues quickly but no LOB during this session OT Assessment OT Assessment Pt making slow progress toward OT goals. Pt with improved functional mobility. Pt limited by weakness, fatigue and acute deconditioning. Pt would continue to benefit from skilled OT in the acute setting before d/c to swing bed unit to further improve strength, balance, transfers and ADL independence Discharge Recommendation OT Recommendation Swing bed unit Plan Progress Slow progress, decreased activity tolerance OT Frequency 5 times/week OT - Next Appointment 12/27/22 If this is the last treatment note, it will serve as the discharge summary Yes End of Session End of Session Safety Call light within reach;Nursing aware of session Education: Primary Learners Name: Trisha Lawrence Primary Language of learner: Moldovan Patient was educated on transfers ADLs balance bed mobility therapy plan safety. Education was completed one to one verbal this date. Preference of learning new concepts one to one verbal Barriers to education this date were fatigue. Response to education this date verbalized understanding verbalized recall. * Kandi Ruth DO - 12/27/2022 3:07 PM CDT [facility] Nephrology Progress Note Trisha Lawrence is a 72-year-old female patient. Seen for greg HPI 72-year-old lady with history of chronic kidney disease stage IV, COPD, depression, dyslipidemia, hypertension, ischemic stroke, short memory loss, neuropathy who was admitted on 12/20 due to lethargyand confusion. Patient found to have GERG on CKD. Patient has CKD stage IV, last year creatinine was2.8. On presentation creatinine was found to be 4.7 and BUN 78. I was consulted to manage GREG on CKD. Patient used to follow-up with Dr. Fung, she reports that she transferred care to [facility] at [place], [place], Subjective Feeling ok. Denies SOB, edema, urinary symptoms. Per nurse, patient incontinent x4. Current Facility-Administered Medications Medication Dose Route Frequency Provider Last Rate Last Admin acetaminophen (TYLENOL) tablet 650 mg 650 mg Oral Q4H PRN Christopher Roberts III, MD 650 mg at 12/23/22 0920 albuterol sulfate HFA 108 (90 Base) MCG/ACT inhaler 2 puff 2 puff Inhalation Q6H PRN Rigo Trevino MD 2 puff at 12/25/22 1026 amLODIPine (NORVASC) tablet 5 mg 5 mg Oral Daily Toi Zimmerman MD 5 mg at 12/27/22 0906 aspirin EC (ECOTRIN) tablet 81 mg 81 mg Oral Daily Toi Zimmerman MD 81 mg at 12/27/22 0906 furosemide (LASIX) tablet 20 mg 20 mg Oral Q48H Fidelina Owens MD 20 mg at 12/27/22 0936 gabapentin (NEURONTIN) capsule 100 mg 100 mg Oral TID Rigo Trevino MD 100 mg at 12/27/22 0906 guaiFENesin ER (MUCINEX) 12 hr tablet 600 mg 600 mg Oral BID Francisco Soto MD 600 mg at 12/27/22 0906 heparin (porcine) injection 5,000 Units 5,000 Units Subcutaneous 2 times per day Christopher Roberts III, MD 5,000 Units at 12/27/22 0906 hydrALAZINE (APRESOLINE) injection 10 mg 10 mg Intravenous Q6H PRN Fidelina Owens MD HYDROcodone-acetaminophen (NORCO) 5-325 MG tablet 1 tablet 1 tablet Oral Q4H PRN Christopher Roberts III, MD 1 tablet at 12/20/22 1654 ipratropium-albuterol (DUONEB) 0.5-2.5 (3) MG/3ML nebulizer solution 3 mL 3 mL Nebulization Q4H Francisco Soto MD 3 mL at 12/27/22 1137 metoprolol succinate ER (TOPROL-XL) 24 hr tablet 50 mg 50 mg Oral Daily Toi Zimmerman MD 50 mg at 12/27/22 0906 naLOXone (NARCAN) injection 0.4 mg 0.4 mg Intravenous PRN Christopher Roberts III, MD normal saline 0.9 % flush 3-10 mL 3-10 mL Intravenous PRN Christopher Roberts III, MD ondansetron (ZOFRAN) injection 4 mg 4 mg Intravenous Q8H PRN Christopher Roberts III, MD polyethylene glycol (GLYCOLAX) packet 17 g 17 g Oral Daily PRN Christopher Roberts III, MD polyvinyl alcohol (LIQUIFILM/ARTIFICIAL TEARS) 1.4 % ophthalmic solution 1 drop 1 drop Both Eyes PRN Francisco Soto MD 1 drop at 12/23/22 1523 sodium bicarbonate tablet 1,300 mg 1,300 mg Oral BID Adan Horton MD 1,300 mg at 12/27/22 0906 No Known Allergies Principal Problem: Acute renal failure superimposed on stage 4 chronic kidney disease, unspecified acute renal failuretype ([facility]) ([facility]) SNOMED CT(R): [id number] RENAL FAILURE Active Problems: Acute renal failure superimposed on chronic kidney disease ([facility]) SNOMED CT(R): [id number] RENAL FAILURE Filed Vitals: 12/26/22 0827 12/26/22 1103 12/26/22 1226 12/26/22 1956 BP: (!) 149/87 (!) 169/85 134/79 (!) 148/83 Pulse: 74 74 84 81 Resp: 18 Temp: 97.3 ??F (36.3 ??C) 98.4 ??F (36.9 ??C) 97.4 ??F (36.3 ??C) TempSrc: Axillary SpO2: 91% 91% 92% Weight: Height: Last 3 Recorded Weights 12/20/22 0238 Weight: 84.5 kg (186 lb 4.6 oz) No intake or output data in the 24 hours ending 12/27/22 1507 Physical Exam: GENERAL: No acute distress, breathing comfortably EYES: Extraocular movements intact, sclerae anicteric ENT: Neck supple, septum is midline. LUNG: Clear to auscultation bilaterally, no wheezes, no crackles CVS: Regular rate rhythm, S1 and S2 normal ABDOMEN: Soft, nondistended, Nontender EXT: no lower Ext edema. SKIN: Skin color, texture, turgor normal. No rashes or lesions NEURO: Alert, awake, No gross neuro deficit PSYCH: Appropriate mood and affect LABs Recent Labs Lab 12/21/22 0454 12/22/224 12/23/22 0921 12/24/22 0343 12/26/22 0356 12/27/22 0414 NA 143 146* 143 144 143 143 K 3.8 4.4 4.7 4.4 4.1 4.4 CL 120* 121* 119* 118* 114* 114* CO2 17.1* 15.9* 16.8* 19.6* 21.5 22.2 AGAP 5.9 9.1 7.2 6.4 7.5 6.8 BUN 55* 48* 38* 37* 40* 45* CR 3.77* 3.29* 3.12* 3.02* 3.52* 3.77* GLU 105 111* -- -- 111* 123* CA 8.5 8.5 8.8 8.8 9.0 8.4* MAGNESIUM -- -- -- -- -- 2.1 PHOS 3.8 -- -- -- 4.6 5.0* Recent Labs Lab 12/21/22 0447 12/22/22 0952 12/27/22 0414 WBC 7.95 8.89 11.66* RBC 4.00* 4.12 4.11 HGB 12.2 12.4 12.4 HCT 38.2 39.1 38.6 MCV 95.5 94.9 93.9 MCH 30.5 30.1 30.2 MCHC 31.9* 31.7* 32.1* PLT 213 261 213 RDW 13.8 13.7 13.8 MPV 10.9* 10.2 9.7 Assessment/Plan: 72-year-old lady with history of chronic kidney disease stage IV, COPD, depression, dyslipidemia, hypertension, ischemic stroke, short memory loss, neuropathy who was admitted on 12/20 due to lethargyand confusion. Patient found to have GREG on CKD. Patient reports no nausea, vomiting, diarrhea, NSAID use. 1. GREG on CKD stage IV -Patient has CKD stage IV ; she reports that she transferred care to nephrology group at [place], [place]. -Last year creatinine was 2.8. Patient's son reports that her autos disassembler has discussed dialysis with them. -On presentation creatinine was found to be 4.7 and BUN 78. -CT abdomen:small bilateral kidneys with subcentimeter cystic foci demonstrating internal density. No hydronephrosis. -BUN and creatinine improved with IVF but now worse -restarted on lasix -continue to monitor for HD needs 2.HTN -BP elevated. On amlodipine and metoprolol 3.Anemia of chronic disease Hemoglobin stable. No indication for IESHA 4.FEN Bicarb better on sodium bicarb 5.Renal osteodystrophy Calcium and phos in good range. Phos trending up. Continue to monitor. Thank you for allowing me to participate in the care of this patient. We will continue to follow this patient with you. Please contact us with further questions. KANDI RUTH DO 12/27/2022 * Fidelina Owens MD - 12/27/2022 12:56 PM CDT [facility] Hospitalist Progress note Chief Complaint: GREG SUBJECTIVE: Patient seen and examined Labs reviewed Patient having cough this morning Generalized weakness present Denies any chest pain or shortness of breath Still has some mild pain in the right shoulder No fever ROS: All other systems reviewed and negative except above Blood pressure (!) 148/83, pulse 81, temperature 97.4 ??F (36.3 ??C), temperature source Axillary, resp. rate 18, height 5' 7 (1.702 m), weight 84.5 kg (186 lb 4.6 oz), SpO2 92 %. Physical Exam Constitutional: Appearance: She is well-developed. HENT: Head: Normocephalic. Eyes: Pupils: Pupils are equal, round, and reactive to light. Cardiovascular: Rate and Rhythm: Normal rate. Heart sounds: Normal heart sounds. Pulmonary: Breath sounds: Normal breath sounds. Comments: Bilateral mild Rales heard Abdominal: General: Bowel sounds are normal. Palpations: Abdomen is soft. Tenderness: There is no abdominal tenderness. Musculoskeletal: Cervical back: Normal range of motion. Comments: Not able to lift right arm above shoulder level, decreased range of movement in the rightshoulder Skin: General: Skin is warm and dry. Neurological: Mental Status: She is alert and oriented to person, place, and time. Cranial Nerves: No cranial nerve deficit. Psychiatric: Mood and Affect: Mood normal. LABS:. Recent Labs 12/27/22 0414 WBC 11.66* HGB 12.4 HCT 38.6 MCV 93.9 PLT 213 RBC 4.11 Recent Labs Lab 12/22/22 0444 12/23/22 0921 12/24/22 0343 12/26/22 0356 12/27/22 0414 NA 146* < > 144 143 143 K 4.4 < > 4.4 4.1 4.4 CL 121* < > 118* 114* 114* CO2 15.9* < > 19.6* 21.5 22.2 AGAP 9.1 < > 6.4 7.5 6.8 BUN 48* < > 37* 40* 45* CR 3.29* < > 3.02* 3.52* 3.77* GLU 111* -- -- 111* 123* CA 8.5 < > 8.8 9.0 8.4* TP -- -- -- -- 6.2* ALB -- -- -- 2.8* 2.8* TBIL -- -- -- -- 0.5 ALKP -- -- -- -- 86 AST -- -- -- -- 17 ALT -- -- -- -- 34 < > = values in this interval not displayed. No results for input(s): INR in the last 168 hours. No intake or output data in the 24 hours ending 12/27/22 1256 RADIOLOGY : REVIEWED MEDICATIONS Scheduled medications amLODIPine 5 mg Oral Daily aspirin EC 81 mg Oral Daily furosemide 20 mg Oral Q48H gabapentin 100 mg Oral TID guaiFENesin ER 600 mg Oral BID heparin (porcine) 5,000 Units Subcutaneous 2 times per day ipratropium-albuterol 3 mL Nebulization Q4H metoprolol succinate ER 50 mg Oral Daily sodium bicarbonate 1,300 mg Oral BID Infusion PRN acetaminophen, albuterol sulfate HFA, hydrALAZINE, HYDROcodone-acetaminophen, naLOXone, normal saline, ondansetron, polyethylene glycol, polyvinyl alcohol ASSESSMENT/PLAN: GREG on CKD stage IV Last year baseline creatinine 2.8 Creatinine today trending up to 3.77, phosphorus elevated at 5 Follow-up on renal ultrasound ordered Initially was on IV fluids, discontinued now Nephrology on board, appreciate recommendations Avoid nephrotoxins Monitor BMP in a.m. On sodium bicarbonate tablets as per nephrology Right arm/shoulder pain Previous history of right shoulder surgery Reviewed x-ray of right shoulder, no acute findings, prior arthroplasty pending Pain medications as needed PT/OT evaluation, recommending swing bed Recommend outpatient follow-up with orthopedics Shortness of breath HFpEF Hypertension Reviewed echocardiogram, EF 65% Continue amlodipine, metoprolol Add Lasix 20 mg every 48 hours Add IV hydralazine as needed Continue aspirin DVT prophylaxis Subcu heparin Discussed with RN on the plan PT/OT evaluated and recommending swing bed, discussed with shelter case manager on discharge plan Total time spent: 52 minutes, more than 50% of time spent in coordination of care and discussing with patient/staff about current medical condition and management Code status: Full Code FIDELINA OWENS MD 12:56 PM 12/27/2022 * Candy Hawk RN - 12/27/2022 9:19 AM CDT 12/27/22 0919 Interdisciplinary Group Conference Team Members Present Physician;Case/Care management Physician present for group conference Dr. Owens Barriers to Discharge Barriers Other (Comment) Other (Comment)follow up creatinine elevated,Phos Elevated- may need dialysis, LasixQ 48hours- willcheck with Nephrology * Olimpia Canchola RN - 12/27/2022 12:25 AM CDT Problem: Reduced risk for falls/injury Goal: Reduced Risk for Falls/Injury Outcome: Progressing Goal: Reduced Risk of Confusion (Acute vs Chronic) Outcome: Progressing Goal: Reduced Risk of Symptomatic Depression Outcome: Progressing Goal: Reduced Risk of Altered Elimination Outcome: Progressing Goal: Reduced Risk of Dizziness/Vertigo/Balance Outcome: Progressing Goal: Reduced Risk of Polypharmacy Outcome: Progressing Problem: Pain Goal: Patient's pain/discomfort is manageable Description: Assess and monitor patient's pain using appropriate pain scale. Collaborate with interdisciplinary team and initiate plan and interventions as ordered. Re-assess patient's pain level 30 - 60 minutes after pain management intervention. Outcome: Progressing Problem: Safety Goal: Patient will be injury free during hospitalization Description: Assess and monitor vitals signs, neurological status including level of consciousness and orientation. Assess patient's risk for falls and implement fall prevention plan of care and interventions per hospital policy. Ensure arm band on, uncluttered walking paths in room, adequate room lighting, call light and overbed table within reach, bed in low position, wheels locked, side rails up per policy, and non-skid footwear provided. Outcome: Progressing Problem: Daily Care Goal: Daily care needs are met Description: Assess and monitor ability to perform self care and identify potential discharge needs. Outcome: Progressing Problem: Psychosocial Needs Goal: Demonstrates ability to cope with hospitalization/illness Description: Assess and monitor patients ability to cope with his/her illness. Outcome: Progressing Goal: Collaborate with patient/family/caregiver to identify patient specific goals for this hospitalization Outcome: Progressing Problem: Discharge Barriers Goal: Patient's discharge needs are met Description: Collaborate with interdisciplinary team and initiate plans and interventions as needed. Outcome: Progressing * Kandi Ruth DO - 12/26/2022 2:38 PM CDT [facility] Nephrology Progress Note Trisha Lawrence is a 72-year-old female patient. Seen for greg HPI 72-year-old lady with history of chronic kidney disease stage IV, COPD, depression, dyslipidemia, hypertension, ischemic stroke, short memory loss, neuropathy who was admitted on 12/20 due to lethargyand confusion. Patient found to have GREG on CKD. Patient has CKD stage IV, last year creatinine was2.8. On presentation creatinine was found to be 4.7 and BUN 78. I was consulted to manage GREG on CKD. Patient used to follow-up with Dr. Fung, she reports that she transferred care to [facility] group at [place], [place], Subjective Feeling ok. Denies SOB, edema, urinary symptoms. Current Facility-Administered Medications Medication Dose Route Frequency Provider Last Rate Last Admin acetaminophen (TYLENOL) tablet 650 mg 650 mg Oral Q4H PRN Christopher Roberts III, MD 650 mg at 12/23/22 0920 albuterol sulfate HFA 108 (90 Base) MCG/ACT inhaler 2 puff 2 puff Inhalation Q6H PRN Rigo Trevino MD 2 puff at 12/25/22 1026 amLODIPine (NORVASC) tablet 5 mg 5 mg Oral Daily Toi Zimmerman MD 5 mg at 12/26/22 0915 aspirin EC (ECOTRIN) tablet 81 mg 81 mg Oral Daily Toi Zimmerman MD 81 mg at 12/26/22 0914 gabapentin (NEURONTIN) capsule 100 mg 100 mg Oral TID Rigo Trevino MD 100 mg at 12/26/22 0915 guaiFENesin ER (MUCINEX) 12 hr tablet 600 mg 600 mg Oral BID Francisco Soto MD 600 mg at 12/26/22 0915 heparin (porcine) injection 5,000 Units 5,000 Units Subcutaneous 2 times per day Christopher Roberts III, MD 5,000 Units at 12/26/22 0915 hydrALAZINE (APRESOLINE) injection 10 mg 10 mg Intravenous Q6H PRN Fidelina Owens MD HYDROcodone-acetaminophen (NORCO) 5-325 MG tablet 1 tablet 1 tablet Oral Q4H PRN Christopher Roberts III, MD 1 tablet at 12/20/22 1654 ipratropium-albuterol (DUONEB) 0.5-2.5 (3) MG/3ML nebulizer solution 3 mL 3 mL Nebulization Q4H Francisco Soto MD 3 mL at 12/26/22 1120 metoprolol succinate ER (TOPROL-XL) 24 hr tablet 50 mg 50 mg Oral Daily Toi Zimmerman MD 50 mg at 12/26/22 0917 naLOXone (NARCAN) injection 0.4 mg 0.4 mg Intravenous PRN Christopher Roberts III, MD normal saline 0.9 % flush 3-10 mL 3-10 mL Intravenous PRN Christopher Roberts III, MD ondansetron (ZOFRAN) injection 4 mg 4 mg Intravenous Q8H PRN Christopher Roberts III, MD polyethylene glycol (GLYCOLAX) packet 17 g 17 g Oral Daily PRN Christopher Roberts III, MD polyvinyl alcohol (LIQUIFILM/ARTIFICIAL TEARS) 1.4 % ophthalmic solution 1 drop 1 drop Both Eyes PRN Francisco Soto MD 1 drop at 12/23/22 1523 sodium bicarbonate tablet 1,300 mg 1,300 mg Oral BID Adan Horton MD 1,300 mg at 12/26/22 0914 No Known Allergies Principal Problem: Acute renal failure superimposed on stage 4 chronic kidney disease, unspecified acute renal failuretype ([facility]) ([facility]) SNOMED CT(R): [id number] RENAL FAILURE Active Problems: Acute renal failure superimposed on chronic kidney disease ([facility]) SNOMED CT(R): [id number] RENAL FAILURE Filed Vitals: 12/25/22203812/26/22 0827 12/26/22 1103 12/26/22 1226 BP: (!) 157/98 (!) 149/87 (!) 169/85 134/79 Pulse: 63 74 74 84 Resp: 16 Temp: 98.2 ??F (36.8 ??C) 97.3 ??F (36.3 ??C) 98.4 ??F (36.9 ??C) TempSrc: Oral SpO2: 95% 91% 91% Weight: Height: Last 3 Recorded Weights 12/20/22 0238 Weight: 84.5 kg (186 lb 4.6 oz) No intake or output data in the 24 hours ending 12/26/22 1438 Physical Exam: GENERAL: No acute distress, breathing comfortably EYES: Extraocular movements intact, sclerae anicteric ENT: Neck supple, septum is midline. LUNG: Clear to auscultation bilaterally, no wheezes, no crackles CVS: Regular rate rhythm, S1 and S2 normal ABDOMEN: Soft, nondistended, Nontender EXT: no lower Ext edema. SKIN: Skin color, texture, turgor normal. No rashes or lesions NEURO: Alert, awake, No gross neuro deficit PSYCH: Appropriate mood and affect LABs Recent Labs Lab 12/19/22205712/20/2250812/21/2245312/22/224 12/23/22 0921 12/24/22 0343 12/26/22 0356 NA 143 144 143 146* 143 144 143 K 3.7 3.5 3.8 4.4 4.7 4.4 4.1 CL 108* 119* 120* 121* 119* 118* 114* CO2 23.1 17.6* 17.1* 15.9* 16.8* 19.6* 21.5 AGAP 11.9 7.4 5.9 9.1 7.2 6.4 7.5 BUN 78* 66* 55* 48* 38* 37* 40* CR 4.70* 4.30* 3.77* 3.29* 3.12* 3.02* 3.52* GLU 143* 114* 105 111* -- -- 111* CA 8.9 8.5 8.5 8.5 8.8 8.8 9.0 MAGNESIUM 2.4 -- -- -- -- -- -- PHOS -- -- 3.8 -- -- -- 4.6 Recent Labs Lab 12/19/22205712/20/2250812/21/2244612/22/22 0952 WBC 10.58 8.78 7.95 8.89 RBC 4.42 4.09* 4.00* 4.12 HGB 13.4 12.4 12.2 12.4 HCT 41.8 38.9 38.2 39.1 MCV 94.6 95.1 95.5 94.9 MCH 30.3 30.3 30.5 30.1 MCHC 32.1* 31.9* 31.9* 31.7* PLT 229 212 213 261 RDW 13.6 13.6 13.8 13.7 MPV 10.1 11.0* 10.9* 10.2 Assessment/Plan: 72-year-old lady with history of chronic kidney disease stage IV, COPD, depression, dyslipidemia, hypertension, ischemic stroke, short memory loss, neuropathy who was admitted on 12/20 due to lethargyand confusion. Patient found to have GREG on CKD. Patient reports no nausea, vomiting, diarrhea, NSAID use. 1. GREG on CKD stage IV -Patient has CKD stage IV ; she reports that she transferred care to nephrology group at [place], [place]. -Last year creatinine was 2.8. Patient's son reports that her autos disassembler has discussed dialysis with them. -On presentation creatinine was found to be 4.7 and BUN 78. -CT abdomen:small bilateral kidneys with subcentimeter cystic foci demonstrating internal density. No hydronephrosis. -BUN and creatinine improved with IVF but now worse- received 1 dose IV lasix overnight -follow up on echo -ok to restart on ambulatory lasix or PRN IV lasix 2.HTN -BP elevated. On amlodipine and metoprolol 3.Anemia of chronic disease Hemoglobin stable. No indication for IESHA 4.FEN Bicarb better on sodium bicarb 5.Renal osteodystrophy Calcium and phos in good range. Thank you for allowing me to participate in the care of this patient. We will continue to follow this patient with you. Please contact us with further questions. KANDI RUTH DO 12/26/2022 * CURLY Minaya - 12/26/2022 2:30 PM CDT OT Treatment Discharge Recommendation: Swing bed unit Activity Recommendation for supervisor matrix: Up with 1, gait belt and 2ww for pivot transfer to chair/commode 12/26/22 1315 Therapy Visit Reason for admission Pt admitted to hospital after a fall at home; acute renal failure supimposed on stage 4 chronic kidney disease......Therapy orders: Eval and Treat......PMH: CVA with R sided residual deficits, CKD, COPD, depression, displaced R proximal humeral fx, HLD, neuropathy, and UTI. Ordering Provider Christopher Roberts III, MD Acute Inpatient OT Time Calculation OT Start Time 1315 OT Stop Time 1323 OT Time Calculation (min) 8 min Precautions General Precautions Fall Risk;Chair Alarm;Multiple lines Instructed on Precautions Yes;Verbalizes understanding Other tele, IV Home Living Home Living Comments Per eval, pt lives alone in a one-story home with 4 ALBERT with bilateral rails. Pt has a tub shower with grab bars and shower chair and standard toilet. Prior to admission, patientambulated household distances and completed ADLs independently. Pt does not leave home, and states she would need assistance to ascend/descend stairs. Pt has a cane and a walker at home. Her son lives nearby and is home in the evenings. Subjective Subjective RN ok'd therapy session. Pt sitting in chair upon entering room. Pt agreeable to session. Staff came in to complete Echo and needed pt back in bed Pain Pain Patient does not offer or c/o pain Cognition Overall Cognitive Status WFL Arousal/Alertness Appropriate responses to stimuli Attention Span Appears intact Memory Appears intact Orientation Level Oriented X4 ADL Toileting Comment Pt incontient of urine needing MaxA to doff soiled depend Bed Mobility Sit to Supine Min assist to left Other (Comment) Pt needed min A to bring BLEs into bed Functional Transfers Sit to Stand Contact guard assist Bed to Chair Contact guard assist Functional Mobility Pt stood from recliner and took steps to bed with 2ww and CGA. Pt with increased time and effort to weighshift and take steps Balance Sitting - Static Independent Sitting - Dynamic Independent Standing - Static CGA;Support of both upper extremities Standing - Dynamic CGA;Support of both upper extremities Other (Comment) Pt had no LOB during this session OT Assessment OT Assessment Pt making slow progress toward OT goals. Pt limited by weakness, fatigue and acute deconditioning. Pt would continue to benefit from skilled OT in the acute setting before d/c to swing bed unit to further improve strength, balance, transfers and ADL independence Discharge Recommendation OT Recommendation Swing bed unit Plan Progress Slow progress, decreased activity tolerance OT Frequency 5 times/week OT - Next Appointment 12/26/22 If this is the last treatment note, it will serve as the discharge summary Yes Education: Primary Learners Name: Trisha Lawrence Primary Language of learner: Moldovan Patient was educated on transfers ADLs balance bed mobility therapy plan safety. Education was completed one to one verbal this date. Preference of learning new concepts one to one verbal Barriers to education this date were pain fatigue. Response to education this date verbalized understanding verbalized recall. * Carlos Herrera, COMM[employer]ITY CENTER WORKER - 12/26/2022 12:53 PM CDT PT Treatment Discharge Recommendation: Swing bed unit DME equipment recommendation: 2 wheeled walker Activity Recommendation for supervisor matrix: up with assist of1,gt belt,walker and stand pivot transfers to commode and chair. 12/26/22 1240 Therapy Visit Ordering Provider Christopher Roberts III, MD Subjective Pt awake and alert, willing to try and asked to use the bathroom.Pt had been using her depends and not a bedpan ,toilet or commode per pt. Reason for admission Pt admitted to hospital after a fall at home; acute renal failure supimposed on stage 4 chronic kidney disease......Therapy orders: Eval and Treat......PMH: CVA with R sided residual deficits, CKD, COPD, depression, displaced R proximal humeral fx, HLD, neuropathy, and UTI. Verified Two Patient Identifiers Yes Patient consents to therapy Yes Acute Inpatient PT Time Calculation PT Start Time 0745 PT Stop Time 0825 PT Time Calculation (min) 40 min Precautions General Precautions Fall Risk;Chair Alarm;Multiple lines Instructed on Precautions Yes;Verbalizes understanding Other tele, IV Home Living Home Living Comments Per eval, pt lives alone in a one-story home with 4 ALBERT with bilateral rails. Pt has a tub shower with grab bars and shower chair and standard toilet. Prior to admission, patientambulated household distances and completed ADLs independently. Pt does not leave home, and states she would need assistance to ascend/descend stairs. Pt has a cane and a walker at home. Her son lives nearby and is home in the evenings. Pain Pain Yes Pain Score Did not rate Location rt ankle both arms and chest Interventions Re-positioning;Relaxation;Re-direction;Informed RN Activity Tolerance Post Activity VS Recovery once back in her chair, pt c/o chest pain and arms hurting ,Personal Lines Advisor notified RN and blood pressure was taken at 154/82 Cognition Overall Cognitive Status WFL Arousal/Alertness Appropriate responses to stimuli Attention Span Appears intact Memory Appears intact Orientation Level Oriented X4 Following Commands Follows all commands and directions without difficulty Safety Judgment Good awareness of safety precautions Awareness of Errors Good awareness of errors made Deficits Fully aware of deficits Problem Solving Able to problem solve independently Motor Planning Appears intact Perseveration Not present Initiation Appears intact Bed Mobility Supine to Sit Min assist to right Other (Comment) transfers supine to sitting with moderate assist today TRANSFERS Sit to Stand Contact guard assist Bed to Chair Contact guard assist Other (Comment) Pt transfers sit to/from stand from the bed,chair Gait Gait Assistance Contact guard assist Assistive Device 2 Wheeled walker Distance Ambulated (ft) 5 ft Other (Comment) Pt amb with increased time with step to pattern and cues to keep moving and cues for sequencing.Pt kept stopping and required tactile cues for moving her legs and walker.Pt demonstrating increasing difficulty with mobility as trying to get to the chair and the chair had to be brought up to her.Pttaken to the bathroom and she declined attempts to amb into the bathroom.Pt taken back to her part of the room and she stood and was cleaned from urine .Pt is limite dby fatigue,weaknessand decreased ability to amb on her rt foot.RN aware . Balance Sitting - Static Independent Sitting - Dynamic Independent Standing - Static CGA;Support of both upper extremities Standing - Dynamic CGA;Support of both upper extremities Other (Comment) no loss o fbalance with cga withthe walker.Pt seemed steadier today despite her pain PT Assessment PT Assessment Pt requiring increased time for mobility and attempts of amb.Once she was in the chair and asked to try to amb, pt developed chest pain and through her arms RN notified and blood pressure takenPt is limite dby pain,weakness,decreased abality to place wt through her rt foot to amb .Pratik mmend swing bed as pt can not go home without increased assist when she is up and about Discharge Recommendation PT Recommendation Swing bed unit PT Equipment Recommended 2 Wheeled walker Plan PT Treatments/Interventions Gait Training;Therapeutic Exercises;Therapeutic Activities;Patient/family training Progress Slow progress, decreased activity tolerance PT Frequency 5 times/week PT - Next Appointment 12/26/22 If this is the last treatment note,it will serve as the discharge summary Yes End of Session End of Session Safety Chair alarm set/activated;Call light within reach;Nursing aware of session End of Session Comment Pt is upin the chair with all needs in reach and chair alrm on 12/26/22 1240 Therapy Visit Ordering Provider Christopher Roberts III, MD Subjective Pt awake and alert, willing to try and asked to use the bathroom.Pt had been using her depends and not a bedpan ,toilet or commode per pt. Reason for admission Pt admitted to hospital after a fall at home; acute renal failure supimposed on stage 4 chronic kidney disease......Therapy orders: Eval and Treat......PMH: CVA with R sided residual deficits, CKD, COPD, depression, displaced R proximal humeral fx, HLD, neuropathy, and UTI. Verified Two Patient Identifiers Yes Patient consents to therapy Yes Acute Inpatient PT Time Calculation PT Start Time 0745 PT Stop Time 0825 PT Time Calculation (min) 40 min Precautions General Precautions Fall Risk;Chair Alarm;Multiple lines Instructed on Precautions Yes;Verbalizes understanding Other tele, IV Home Living Home Living Comments Per eval, pt lives alone in a one-story home with 4 ALBERT with bilateral rails. Pt has a tub shower with grab bars and shower chair and standard toilet. Prior to admission, patientambulated household distances and completed ADLs independently. Pt does not leave home, and states she would need assistance to ascend/descend stairs. Pt has a cane and a walker at home. Her son lives nearby and is home in the evenings. Pain Pain Yes Pain Score Did not rate Location rt ankle both arms and chest Interventions Re-positioning;Relaxation;Re-direction;Informed RN Activity Tolerance Post Activity VS Recovery once back in her chair, pt c/o chest pain and arms hurting ,Personal Lines Advisor notified RN and blood pressure was taken at 154/82 Cognition Overall Cognitive Status WFL Arousal/Alertness Appropriate responses to stimuli Attention Span Appears intact Memory Appears intact Orientation Level Oriented X4 Following Commands Follows all commands and directions without difficulty Safety Judgment Good awareness of safety precautions Awareness of Errors Good awareness of errors made Deficits Fully aware of deficits Problem Solving Able to problem solve independently Motor Planning Appears intact Perseveration Not present Initiation Appears intact Bed Mobility Supine to Sit Min assist to right Other (Comment) transfers supine to sitting with moderate assist today TRANSFERS Sit to Stand Contact guard assist Bed to Chair Contact guard assist Other (Comment) Pt transfers sit to/from stand from the bed,chair Gait Gait Assistance Contact guard assist Assistive Device 2 Wheeled walker Distance Ambulated (ft) 5 ft Other (Comment) Pt amb with increased time with step to pattern and cues to keep moving and cues for sequencing.Pt kept stopping and required tactile cues for moving her legs and walker.Pt demonstrating increasing difficulty with mobility as trying to get to the chair and the chair had to be brought up to her.Pt taken to the bathroom in her chair and she declined attempts to amb into the bathroom. Pt taken back to her part of the room and she stood and was cleaned from urine .Pt is limite dby fatigue,weakness and decreased ability to amb on her rt foot.RN aware . Balance Sitting - Static Independent Sitting - Dynamic Independent Standing - Static CGA;Support of both upper extremities Standing - Dynamic CGA;Support of both upper extremities Other (Comment) no loss o fbalance with cga withthe walker.Pt seemed steadier today despite her pain PT Assessment PT Assessment Pt requiring increased time for mobility and attempts of amb.Once she was in the chair and asked to try to amb, pt developed chest pain and through her arms RN notified and blood pressure takenPt is limite dby pain,weakness,decreased abality to place wt through her rt foot to amb .Pratik mmend swing bed as pt can not go home without increased assist when she is up and about Discharge Recommendation PT Recommendation Swing bed unit PT Equipment Recommended 2 Wheeled walker Plan PT Treatments/Interventions Gait Training;Therapeutic Exercises;Therapeutic Activities;Patient/family training Progress Slow progress, decreased activity tolerance PT Frequency 5 times/week PT - Next Appointment 12/26/22 If this is the last treatment note,it will serve as the discharge summary Yes End of Session End of Session Safety Chair alarm set/activated;Call light within reach;Nursing aware of session End of Session Comment Pt is upin the chair with all needs in reach and chair alrm on Education: Primary Learners Name: Trisha Lawrence Primary Language of learner: Moldovan Patient was educated on precautions transfers ADLs balance bed mobility gait safety energy conservation joint protection. Education was completed one to one verbal hands-on this date. Preference of learning new concepts one to one verbal hands-on Barriers to education this date were pain fatigue anxious cognition emotional physical impairment. Response to education this date demos with verbal cues needs reinforcement needs follow up needs assistance. * Fidelina Owens MD - 12/26/2022 11:51 AM CDT [facility] Hospitalist Progress note Chief Complaint: GREG SUBJECTIVE: Patient seen and examined Labs reviewed Notes reviewed Patient comfortably sitting in chair Patient states she is not able to lift her right shoulder and this has been for few days and has previous surgery in the right shoulder Generalized weakness/fatigue present Breathing okay, denies any chest pain Yesterday she was having some shortness of breath, given IV Lasix No fever ROS: All other systems reviewed and negative except above Blood pressure (!) 169/85, pulse 74, temperature 98.4 ??F (36.9 ??C), resp. rate 16, height 5' 7 (1.702 m), weight 84.5 kg (186 lb 4.6 oz), SpO2 91 %. Physical Exam Constitutional: Appearance: She is well-developed. HENT: Head: Normocephalic. Eyes: Pupils: Pupils are equal, round, and reactive to light. Cardiovascular: Rate and Rhythm: Normal rate. Heart sounds: Normal heart sounds. Pulmonary: Breath sounds: Normal breath sounds. Comments: Bilateral mild Rales heard Abdominal: General: Bowel sounds are normal. Palpations: Abdomen is soft. Tenderness: There is no abdominal tenderness. Musculoskeletal: Cervical back: Normal range of motion. Comments: Not able to lift right arm above shoulder level, decreased range of movement in the rightshoulder Skin: General: Skin is warm and dry. Neurological: Mental Status: She is alert and oriented to person, place, and time. Cranial Nerves: No cranial nerve deficit. Psychiatric: Mood and Affect: Mood normal. LABS:. No results for input(s): WBC, HGB, HCT, MCV, PLT, RBC in the last 72 hours. Recent Labs Lab 12/19/228 12/20/22 0509 12/21/22 0454 12/22/22 0444 12/23/22 0921 12/24/22 0343 12/26/22 0356 NA 143 < > 143 146* 143 144 143 K 3.7 < > 3.8 4.4 4.7 4.4 4.1 CL 108* < > 120* 121* 119* 118* 114* CO2 23.1 < > 17.1* 15.9* 16.8* 19.6* 21.5 AGAP 11.9 < > 5.9 9.1 7.2 6.4 7.5 BUN 78* < > 55* 48* 38* 37* 40* CR 4.70* < > 3.77* 3.29* 3.12* 3.02* 3.52* GLU 143* < > 105 111* -- -- 111* CA 8.9 < > 8.5 8.5 8.8 8.8 9.0 TP 7.5 -- -- -- -- -- -- ALB 3.6 -- -- -- -- -- 2.8* TBIL 0.6 -- -- -- -- -- -- ALKP 101 -- -- -- -- -- -- AST 14* -- -- -- -- -- -- ALT 16 -- -- -- -- -- -- < > = values in this interval not displayed. No results for input(s): INR in the last 168 hours. No intake or output data in the 24 hours ending 12/26/22 1152 RADIOLOGY : REVIEWED MEDICATIONS Scheduled medications amLODIPine 5 mg Oral Daily aspirin EC 81 mg Oral Daily gabapentin 100 mg Oral TID guaiFENesin ER 600 mg Oral BID heparin (porcine) 5,000 Units Subcutaneous 2 times per day ipratropium-albuterol 3 mL Nebulization Q4H metoprolol succinate ER 50 mg Oral Daily sodium bicarbonate 1,300 mg Oral BID Infusion PRN acetaminophen, albuterol sulfate HFA, hydrALAZINE, HYDROcodone-acetaminophen, naLOXone, normal saline, ondansetron, polyethylene glycol, polyvinyl alcohol ASSESSMENT/PLAN: GREG on CKD stage IV Last year baseline creatinine 2.8 Creatinine this morning 3.52, trending up from yesterday Initially was on IV fluids, discontinued now Nephrology on board, appreciate recommendations Avoid nephrotoxins Monitor BMP in a.m. On sodium bicarbonate tablets as per nephrology Right arm/shoulder pain Previous history of right shoulder surgery Get x-ray right shoulder Pain medications as needed PT/OT evaluation, recommending swing bed If no acute findings on x-ray, recommend outpatient follow-up with orthopedics Shortness of breath ? CHF Hypertension Reviewed chest x-ray from yesterday, shows congestion, received a dose of IV Lasix yesterday Get echocardiogram Blood pressure elevated, continue amlodipine, metoprolol and monitor vitals Add IV hydralazine as needed Continue aspirin DVT prophylaxis Subcu heparin Discussed with RN on the plan PT/OT evaluated and recommending swing bed, discussed with shelter case manager on discharge plan Discussed with patient's son, Zack over phone along with RN at bedside regarding patient's current clinical condition, management. Answered all his questions and Zack okay with the plan Total time spent: 54 minutes, more than 50% of time spent in coordination of care, reviewing records and discussing with patient/staff about current medical condition and management Code status: Full Code FIDELINA OWENS MD 11:52 AM 12/26/2022 * Minnie Jung RN - 12/26/2022 7:42 AM CDT This life insurance underwriter received a request to set up ccm with pt son Zack and Dr. Owens. Dr. Owens says he can meet at 11:45 in pt room. This life insurance underwriter called pt son and he stated he cannot be present in the room but would be available for phone call. [address] [place]. * Veronica Rios RN - 12/25/2022 2:27 PM CDT Spoke with pts son. He is agreeable to [facility] as she has been there before. Pt is also agreeable. 12/25/22 0900 Interdisciplinary Group Conference Team Members Present Physician;Case/Care management;Nursing Physician present for group conference Dr. Soto Barriers to Discharge Barriers Complex - Social and/or Medical Complex - Social and/or Medical follow up Pending placement - recs for swing bed. 1554 - Met with pt. She does not believe she has secondary insurance. Called son Zack and Jessenia checked her Medicare days and she has 20 days available. After 20 days she would need to pay privately for continued service. Plan is to see how she does with therapy and re-assess readiness for home. * Carlos Herrera PTA - 12/25/2022 1:43 PM CDT PT Treatment Discharge Recommendation: Swing bed unit DME equipment recommendation: 2 wheeled walker Activity Recommendation for supervisor matrix: up with assist of 1-2,gt belt and walker to chair/commode . 12/25/22 1334 Therapy Visit Ordering Provider Christopher Roberts III, MD Subjective Pt just got up to the chair and willing to try Reason for admission Pt admitted to hospital after a fall at home; acute renal failure supimposed on stage 4 chronic kidney disease......Therapy orders: Eval and Treat......PMH: CVA with R sided residual deficits, CKD, COPD, depression, displaced R proximal humeral fx, HLD, neuropathy, and UTI. Verified Two Patient Identifiers Yes Patient consents to therapy Yes Acute Inpatient PT Time Calculation PT Start Time 1045 PT Stop Time 1113 PT Time Calculation (min) 28 min Precautions General Precautions Fall Risk;Chair Alarm;Multiple lines Instructed on Precautions Yes;Verbalizes understanding Other tele, IV Home Living Home Living Comments Per eval, pt lives alone in a one-story home with 4 ALBERT with bilateral rails. Pt has a tub shower with grab bars and shower chair and standard toilet. Prior to admission, patientambulated household distances and completed ADLs independently. Pt does not leave home, and states she would need assistance to ascend/descend stairs. Pt has a cane and a walker at home. Her son lives nearby and is home in the evenings. Pain Pain Yes Pain Score Did not rate Location rt ankle Interventions Re-positioning;Relaxation;Re-direction;Informed RN Activity Tolerance Activity Tolerance Comments Limited by acute weakness and rt ankle pain and rt quadrant pain aroundribs Cognition Overall Cognitive Status WFL Arousal/Alertness Appropriate responses to stimuli Attention Span Appears intact Memory Appears intact Orientation Level Oriented X4 Following Commands Follows all commands and directions without difficulty Safety Judgment Good awareness of safety precautions Awareness of Errors Good awareness of errors made Deficits Fully aware of deficits Problem Solving Able to problem solve independently Motor Planning Appears intact Perseveration Not present Initiation Appears intact Bed Mobility Other (Comment) not tested, pt is up in the chair and remained in the chair after session TRANSFERS Sit to Stand Contact guard assist Bed to Chair Contact guard assist Other (Comment) Pt transfers sit to/from stand from the bed and chair.Personal Lines Advisor had pt amb to the bed due to chair caught on post from the wall and had to get them both unhooked to amb farther Gait Gait Assistance Contact guard assist Assistive Device 2 Wheeled walker Distance Ambulated (ft) 8 ft (8feet,6feet and 5 feet) Other (Comment) Pt amb with step to gt pattern and tends to lead with lt leg first despite cues forrt leg leading.When instructed on how to amb with rt leg leading, pt improved but went back and forth with gt patterns during mobility.Pt unable to amb far due to rt ankle pian and RN aware .Pt stillplacing limited wt through her rt ankle. Chair followed with each gt trial Balance Sitting - Static Independent Sitting - Dynamic Independent Standing - Static CGA;Support of both upper extremities Standing - Dynamic CGA;Support of both upper extremities Other (Comment) no loss o fbalance with cga withthe walker.Pt seemed steadier today despite her pain PT Assessment PT Assessment Pt required increased time due to rt ankle pian and fatigue,chest congestion.Pt was able to amb very short distances with chair following this date.She is limited by rt ankle pain ,fatigue ,shortness of breath and pain at her ribs on the rt side.She is motivatedand would benefit from swing bed to increase her activity tolerance and functional mobility ,safetyto return home ,eventually Discharge Recommendation PT Recommendation Swing bed unit PT Equipment Recommended 2 Wheeled walker Plan PT Treatments/Interventions Gait Training;Therapeutic Exercises;Therapeutic Activities;Patient/family training Progress Slow progress, decreased activity tolerance PT Frequency 5 times/week PT - Next Appointment 12/25/22 If this is the last treatment note,it will serve as the discharge summary Yes End of Session End of Session Safety Chair alarm set/activated;Call light within reach;Nursing aware of session End of Session Comment Pt is up in the chair with chair alrm on and all needs in reach Education: Primary Learners Name: Trisha Lawrence Primary Language of learner: Moldovan Patient was educated on precautions transfers balance bed mobility gait safety. Education was completed one to one verbal hands-on demonstration this date. Preference of learning new concepts one to one verbal hands-on demonstration Barriers to education this date were pain fatigue anxious physical impairment. Response to education this date demos with verbal cues needs reinforcement needs follow up needs assistance. * Francisco Soto MD - 12/25/2022 1:36 PM CDT Progress note SUBJECTIVE: Chief Complaint: GREG on CKD Very slow to move around. Oral intake is slowly improving. No nausea/vomiting/chest pain. No other complaints at present. Review of Systems All other systems reviewed and are negative. OBJECTIVE Blood pressure (!) 174/88, pulse 64, temperature 98.4 ??F (36.9 ??C), temperature source Oral, resp. rate 14, height 5' 7 (1.702 m), weight 84.5 kg (186 lb 4.6 oz), SpO2 93 %. Physical Exam Constitutional: Appearance: She is well-developed. HENT: Head: Normocephalic and atraumatic. Mouth/Throat: Mouth: Mucous membranes are moist. Eyes: Conjunctiva/sclera: Conjunctivae normal. Neck: Thyroid: No thyromegaly. Trachea: No tracheal deviation. Cardiovascular: Rate and Rhythm: Normal rate and regular rhythm. Heart sounds: Normal heart sounds. Pulmonary: Effort: Pulmonary effort is normal. No respiratory distress. Breath sounds: Wheezing present. No rales. Abdominal: General: Bowel sounds are normal. There is no distension. Palpations: Abdomen is soft. Tenderness: There is no abdominal tenderness. Musculoskeletal: General: No swelling. Cervical back: Neck supple. Skin: General: Skin is warm and dry. Findings: No erythema. Neurological: General: No focal deficit present. Mental Status: She is alert. Mental status is at baseline. Cranial Nerves: No cranial nerve deficit. LABS:. No results for input(s): WBC, HGB, HCT, MCV, PLT, RBC in the last 72 hours. Recent Labs Lab 12/19/22205712/20/22 0509 12/21/22 0454 12/22/22 0444 12/23/22 0921 12/24/22 0343 NA 143 144 143 146* 143 144 K 3.7 3.5 3.8 4.4 4.7 4.4 CL 108* 119* 120* 121* 119* 118* CO2 23.1 17.6* 17.1* 15.9* 16.8* 19.6* AGAP 11.9 7.4 5.9 9.1 7.2 6.4 BUN 78* 66* 55* 48* 38* 37* CR 4.70* 4.30* 3.77* 3.29* 3.12* 3.02* GLU 143* 114* 105 111* -- -- CA 8.9 8.5 8.5 8.5 8.8 8.8 TP 7.5 -- -- -- -- -- ALB 3.6 -- -- -- -- -- TBIL 0.6 -- -- -- -- -- ALKP 101 -- -- -- -- -- AST 14* -- -- -- -- -- ALT 16 -- -- -- -- -- No results for input(s): INR in the last 168 hours. Intake/Output Summary (Last 24 hours) at 12/25/2022 1336 Last data filed at 12/25/2022 0900 Gross per 24 hour Intake 100 ml Output -- Net 100 ml RADIOLOGY : REVIEWED MEDICATIONS Scheduled medications amLODIPine 5 mg Oral Daily aspirin EC 81 mg Oral Daily furosemide 20 mg Intravenous Once gabapentin 100 mg Oral TID guaiFENesin ER 600 mg Oral BID heparin (porcine) 5,000 Units Subcutaneous 2 times per day ipratropium-albuterol 3 mL Nebulization Q4H metoprolol succinate ER 50 mg Oral Daily normal saline 3-10 mL Intravenous Q8H sodium bicarbonate 1,300 mg Oral BID Infusion sodium chloride 75 mL/hr at 12/25/22 0950 PRN acetaminophen, albuterol sulfate HFA, HYDROcodone-acetaminophen, naLOXone, normal saline, ondansetron, polyethylene glycol, polyvinyl alcohol ASSESSMENT /PLAN Trisha Lawrence is a 72-year-old female Admitted with Acute renal failure superimposed on stage 4 chronic kidney disease, unspecified acute renal failuretype ([facility]/HCC) ([facility]) Acute renal failure superimposed on chronic kidney disease ([facility]) PLAN: #GREG on CKD stage IV -Prerenal from dehydration continue with IV fluids creatinine is trending down. - Creatinine improving. D/w nephrology, appreciated recommendations. . -Avoid NSAIDs use avoid any other nephrotoxic agents. #Generalized weakness -Evaluated by physical and Occupational Therapy they are recommending swing bed placement. Case management to discuss with patient. #Metabolic encephalopathy secondary from GREG mentation is improving continue to monitor mentation. #Hypernatremia - cont 0.45 nacl at 75cc/hr. #COPD not in any acute exacerbation continue with as needed nebulizer. - add inhaler as well. #DVT prophylaxis; on heparin drip. Code status: Full Code PT/OT recs Swing bed, CM on board, possible d/c by Sunday. Dr. Soto will assume care in AM. FRANCISCO SOTO MD 1:36 PM 12/25/2022 * Kandi Ruth, - 12/25/2022 12:03 PM CDT [facility] Nephrology Progress Note Trisha Lawrence is a 72-year-old female patient. Seen for greg HPI 72-year-old lady with history of chronic kidney disease stage IV, COPD, depression, dyslipidemia, hypertension, ischemic stroke, short memory loss, neuropathy who was admitted on 12/20 due to lethargyand confusion. Patient found to have GREG on CKD. Patient has CKD stage IV, last year creatinine was2.8. On presentation creatinine was found to be 4.7 and BUN 78. I was consulted to manage GREG on CKD. Patient used to follow-up with Dr. Fung, she reports that she transferred care to [facility] at [place], [place], Patient reports no nausea, vomiting, diarrhea, NSAID use Subjective Feeling well. Denies SOB, edema, urinary symptoms. Current Facility-Administered Medications Medication Dose Route Frequency Provider Last Rate Last Admin acetaminophen (TYLENOL) tablet 650 mg 650 mg Oral Q4H PRN Christopher Roberts III, MD 650 mg at 12/23/22 0920 albuterol sulfate HFA 108 (90 Base) MCG/ACT inhaler 2 puff 2 puff Inhalation Q6H PRN Rigo Trevino MD 2 puff at 12/25/22 1026 amLODIPine (NORVASC) tablet 5 mg 5 mg Oral Daily Toi Zimmerman MD 5 mg at 12/25/22 0803 aspirin EC (ECOTRIN) tablet 81 mg 81 mg Oral Daily Toi Zimmerman MD 81 mg at 12/25/22 0802 gabapentin (NEURONTIN) capsule 100 mg 100 mg Oral TID Rigo Trevino MD 100 mg at 12/25/222034 guaiFENesin ER (MUCINEX) 12 hr tablet 600 mg 600 mg Oral BID Francisco Soto MD 600 mg at 12/25/222034 heparin (porcine) injection 5,000 Units 5,000 Units Subcutaneous 2 times per day Christopher Roberts III, MD 5,000 Units at 12/25/222034 HYDROcodone-acetaminophen (NORCO) 5-325 MG tablet 1 tablet 1 tablet Oral Q4H PRN Christopher Roberts III, MD 1 tablet at 12/20/22 165 ipratropium-albuterol (DUONEB) 0.5-2.5 (3) MG/3ML nebulizer solution 3 mL 3 mL Nebulization Q4H Francisco Soto MD metoprolol succinate ER (TOPROL-XL) 24 hr tablet 50 mg 50 mg Oral Daily Toi Zimmerman MD 50 mg at 12/25/22 0803 naLOXone (NARCAN) injection 0.4 mg 0.4 mg Intravenous PRN Christopher Roberts III, MD normal saline 0.9 % flush 3-10 mL 3-10 mL Intravenous Q8H Christopher Roberts III, MD 10 mL at 12/25/222038 normal saline 0.9 % flush 3-10 mL 3-10 mL Intravenous PRN Christopher Roberts III, MD ondansetron (ZOFRAN) injection 4 mg 4 mg Intravenous Q8H PRN Christopher Roberts III, MD polyethylene glycol (GLYCOLAX) packet 17 g 17 g Oral Daily PRN Christopher Roberts III, MD polyvinyl alcohol (LIQUIFILM/ARTIFICIAL TEARS) 1.4 % ophthalmic solution 1 drop 1 drop Both Eyes PRN Francisco Soto MD 1 drop at 12/23/22 1523 sodium bicarbonate tablet 1,300 mg 1,300 mg Oral BID Adan Horton MD 1,300 mg at 12/25/222034 No Known Allergies Principal Problem: Acute renal failure superimposed on stage 4 chronic kidney disease, unspecified acute renal failuretype ([facility]) ([facility]) SNOMED CT(R): [id number] RENAL FAILURE Active Problems: Acute renal failure superimposed on chronic kidney disease ([facility]/HCC) SNOMED CT(R): [id number] RENAL FAILURE Filed Vitals: 12/24/22 0809 12/24/22 1941 12/25/22 0804 12/25/222038 BP: (!) 157/85 (!) 156/93 (!) 174/88 (!) 157/98 Pulse: (!) 58 65 64 63 Resp: 18 18 14 Temp: 98.4 ??F (36.9 ??C) 98.1 ??F (36.7 ??C) 98.4 ??F (36.9 ??C) 98.2 ??F (36.8 ??C) TempSrc: Oral Oral Oral SpO2: 96% 95% 93% 95% Weight: Height: Last 3 Recorded Weights 12/20/22 0238 Weight: 84.5 kg (186 lb 4.6 oz) Intake/Output Summary (Last 24 hours) at 12/25/20222102 Last data filed at 12/25/2022 0900 Gross per 24 hour Intake 100 ml Output -- Net 100 ml Physical Exam: GENERAL: No acute distress, breathing comfortably lying flat on room air EYES: Extraocular movements intact, sclerae anicteric ENT: Neck supple, septum is midline. LUNG: Clear to auscultation bilaterally, no wheezes, no crackles CVS: Regular rate rhythm, S1 and S2 normal ABDOMEN: Soft, nondistended, Nontender EXT: no lower Ext edema. SKIN: Skin color, texture, turgor normal. No rashes or lesions NEURO: Alert, awake, No gross neuro deficit PSYCH: Appropriate mood and affect LABs Recent Labs Lab 12/19/22205712/20/22 0509 12/21/22 0454 12/22/22 0444 12/23/22 0921 12/24/22 0343 NA 143 144 143 146* 143 144 K 3.7 3.5 3.8 4.4 4.7 4.4 CL 108* 119* 120* 121* 119* 118* CO2 23.1 17.6* 17.1* 15.9* 16.8* 19.6* AGAP 11.9 7.4 5.9 9.1 7.2 6.4 BUN 78* 66* 55* 48* 38* 37* CR 4.70* 4.30* 3.77* 3.29* 3.12* 3.02* GLU 143* 114* 105 111* -- -- CA 8.9 8.5 8.5 8.5 8.8 8.8 MAGNESIUM 2.4 -- -- -- -- -- PHOS -- -- 3.8 -- -- -- Recent Labs Lab 12/19/22205712/20/22 0509 12/21/22 0447 12/22/22 0952 WBC 10.58 8.78 7.95 8.89 RBC 4.42 4.09* 4.00* 4.12 HGB 13.4 12.4 12.2 12.4 HCT 41.8 38.9 38.2 39.1 MCV 94.6 95.1 95.5 94.9 MCH 30.3 30.3 30.5 30.1 MCHC 32.1* 31.9* 31.9* 31.7* PLT 229 212 213 261 RDW 13.6 13.6 13.8 13.7 MPV 10.1 11.0* 10.9* 10.2 Assessment/Plan: 72-year-old lady with history of chronic kidney disease stage IV, COPD, depression, dyslipidemia, hypertension, ischemic stroke, short memory loss, neuropathy who was admitted on 12/20 due to lethargyand confusion. Patient found to have GREG on CKD. Patient reports no nausea, vomiting, diarrhea, NSAID use. 1. GREG on CKD stage IV -Patient has CKD stage IV ; she reports that she transferred care to nephrology group at [place], [place]. -Last year creatinine was 2.8. Patient's son reports that her autos disassembler has discussed dialysis with them. -On presentation creatinine was found to be 4.7 and BUN 78. -CT abdomen:small bilateral kidneys with subcentimeter cystic foci demonstrating internal density. No hydronephrosis. -BUN and creatinine improving with IVF -half saline ok at 75 ml hour -No indication for dialysis -Avoid nephrotoxins, avoid hypotension 2.HTN -BP stable. On amlodipine and metoprolol 3.Anemia of chronic disease Hemoglobin stable. No indication for IESHA 4.FEN Bicarb remains low, started sodium bicarb 12/21/22 5.Renal osteodystrophy Calcium and phos in good range. Thank you for allowing me to participate in the care of this patient. We will continue to follow this patient with you. Please contact us with further questions. KANDI RUTH DO 12/25/2022 * Cristal Rollins RN - 12/25/2022 9:54 AM CDT Problem: Reduced risk for falls/injury Goal: Reduced Risk for Falls/Injury Outcome: Progressing Goal: Reduced Risk of Confusion (Acute vs Chronic) Outcome: Progressing Goal: Reduced Risk of Symptomatic Depression Outcome: Progressing Goal: Reduced Risk of Altered Elimination Outcome: Progressing Goal: Reduced Risk of Dizziness/Vertigo/Balance Outcome: Progressing Goal: Reduced Risk of Polypharmacy Outcome: Progressing Problem: Pain Goal: Patient's pain/discomfort is manageable Description: Assess and monitor patient's pain using appropriate pain scale. Collaborate with interdisciplinary team and initiate plan and interventions as ordered. Re-assess patient's pain level 30 - 60 minutes after pain management intervention. Outcome: Progressing Problem: Safety Goal: Patient will be injury free during hospitalization Description: Assess and monitor vitals signs, neurological status including level of consciousness and orientation. Assess patient's risk for falls and implement fall prevention plan of care and interventions per hospital policy. Ensure arm band on, uncluttered walking paths in room, adequate room lighting, call light and overbed table within reach, bed in low position, wheels locked, side rails up per policy, and non-skid footwear provided. Outcome: Progressing Problem: Daily Care Goal: Daily care needs are met Description: Assess and monitor ability to perform self care and identify potential discharge needs. Outcome: Progressing Problem: Psychosocial Needs Goal: Demonstrates ability to cope with hospitalization/illness Description: Assess and monitor patients ability to cope with his/her illness. Outcome: Progressing Goal: Collaborate with patient/family/caregiver to identify patient specific goals for this hospitalization Outcome: Progressing Problem: Discharge Barriers Goal: Patient's discharge needs are met Description: Collaborate with interdisciplinary team and initiate plans and interventions as needed. Outcome: Progressing * Veronique Leach RN - 12/24/2022 10:36 PM CDT Problem: Reduced risk for falls/injury Goal: Reduced Risk for Falls/Injury Outcome: Progressing Goal: Reduced Risk of Confusion (Acute vs Chronic) Outcome: Progressing Goal: Reduced Risk of Symptomatic Depression Outcome: Progressing Goal: Reduced Risk of Altered Elimination Outcome: Progressing Goal: Reduced Risk of Dizziness/Vertigo/Balance Outcome: Progressing Goal: Reduced Risk of Polypharmacy Outcome: Progressing * Francsico Soto MD - 12/24/2022 11:47 AM CDT Progress note SUBJECTIVE: Chief Complaint: GREG on CKD Very slow to move around. Oral intake is slowly improving. No nausea/vomiting/chest pain. No other complaints at present. Review of Systems All other systems reviewed and are negative. OBJECTIVE Blood pressure (!) 157/85, pulse (!) 58, temperature 98.4 ??F (36.9 ??C), temperature source Oral, resp. rate 18, height 5' 7 (1.702 m), weight 84.5 kg (186 lb 4.6 oz), SpO2 96 %. Physical Exam Constitutional: Appearance: She is well-developed. HENT: Head: Normocephalic and atraumatic. Mouth/Throat: Mouth: Mucous membranes are moist. Eyes: Conjunctiva/sclera: Conjunctivae normal. Neck: Thyroid: No thyromegaly. Trachea: No tracheal deviation. Cardiovascular: Rate and Rhythm: Normal rate and regular rhythm. Heart sounds: Normal heart sounds. Pulmonary: Effort: Pulmonary effort is normal. No respiratory distress. Breath sounds: Wheezing present. No rales. Abdominal: General: Bowel sounds are normal. There is no distension. Palpations: Abdomen is soft. Tenderness: There is no abdominal tenderness. Musculoskeletal: General: No swelling. Cervical back: Neck supple. Skin: General: Skin is warm and dry. Findings: No erythema. Neurological: General: No focal deficit present. Mental Status: She is alert. Mental status is at baseline. Cranial Nerves: No cranial nerve deficit. LABS:. Recent Labs 12/22/22 0952 WBC 8.89 HGB 12.4 HCT 39.1 MCV 94.9 PLT 261 RBC 4.12 Recent Labs Lab 12/19/228 12/20/22 0509 12/21/22 0454 12/22/22 0444 12/23/22 0921 12/24/22 0343 NA 143 144 143 146* 143 144 K 3.7 3.5 3.8 4.4 4.7 4.4 CL 108* 119* 120* 121* 119* 118* CO2 23.1 17.6* 17.1* 15.9* 16.8* 19.6* AGAP 11.9 7.4 5.9 9.1 7.2 6.4 BUN 78* 66* 55* 48* 38* 37* CR 4.70* 4.30* 3.77* 3.29* 3.12* 3.02* GLU 143* 114* 105 111* -- -- CA 8.9 8.5 8.5 8.5 8.8 8.8 TP 7.5 -- -- -- -- -- ALB 3.6 -- -- -- -- -- TBIL 0.6 -- -- -- -- -- ALKP 101 -- -- -- -- -- AST 14* -- -- -- -- -- ALT 16 -- -- -- -- -- No results for input(s): INR in the last 168 hours. Intake/Output Summary (Last 24 hours) at 12/24/2022 1147 Last data filed at 12/24/2022 0938 Gross per 24 hour Intake 200 ml Output 0 ml Net 200 ml RADIOLOGY : REVIEWED MEDICATIONS Scheduled medications amLODIPine 5 mg Oral Daily aspirin EC 81 mg Oral Daily gabapentin 100 mg Oral TID guaiFENesin ER 600 mg Oral BID heparin (porcine) 5,000 Units Subcutaneous 2 times per day metoprolol succinate ER 50 mg Oral Daily normal saline 3-10 mL Intravenous Q8H sodium bicarbonate 1,300 mg Oral BID Infusion sodium chloride 75 mL/hr at 12/24/22 0017 PRN acetaminophen, albuterol sulfate HFA, HYDROcodone-acetaminophen, naLOXone, normal saline, ondansetron, polyethylene glycol, polyvinyl alcohol ASSESSMENT /PLAN Trisha Lawrence is a 72-year-old female Admitted with Acute renal failure superimposed on stage 4 chronic kidney disease, unspecified acute renal failuretype (HHS/HCC) ([facility]/HCC) Acute renal failure superimposed on chronic kidney disease ([facility]/HCC) PLAN: #GREG on CKD stage IV -Prerenal from dehydration continue with IV fluids creatinine is trending down. - Creatinine improving. D/w nephrology, appreciated recommendations. . -Avoid NSAIDs use avoid any other nephrotoxic agents. #Generalized weakness -Evaluated by physical and Occupational Therapy they are recommending swing bed placement. Case management to discuss with patient. #Metabolic encephalopathy secondary from GREG mentation is improving continue to monitor mentation. #Hypernatremia - cont 0.45 nacl at 75cc/hr. #COPD not in any acute exacerbation continue with as needed nebulizer. - add inhaler as well. #DVT prophylaxis; on heparin drip. Code status: Full Code PT/OT recs Swing bed, CM on board, possible d/c by Sunday. Dr. Soto will assume care in AM. FRANCISCO SOTO MD 11:47 AM 12/24/2022 * Pavan Lai MD - 12/24/2022 10:21 AM CDT [facility] Nephrology Progress Note Trisha Lawrence is a 72-year-old female patient. Seen for greg HPI 72-year-old lady with history of chronic kidney disease stage IV, COPD, depression, dyslipidemia, hypertension, ischemic stroke, short memory loss, neuropathy who was admitted on 12/20 due to lethargyand confusion. Patient found to have GREG on CKD. Patient has CKD stage IV, last year creatinine was2.8. On presentation creatinine was found to be 4.7 and BUN 78. I was consulted to manage GREG on CKD. Patient used to follow-up with Dr. Fung, she reports that she transferred care to [facility] at [place], [place], Patient reports no nausea, vomiting, diarrhea, NSAID use Subjective Afebrile; he has eaten breakfast without nausea or emesis Review Of Systems Denies nausea, emesis. She had bm; no BRBPR No chest pain or sob Urinating well Current Facility-Administered Medications Medication Dose Route Frequency Provider Last Rate Last Admin acetaminophen (TYLENOL) tablet 650 mg 650 mg Oral Q4H PRN Christopher Roberts III, MD 650 mg at 12/23/22 0920 albuterol sulfate HFA 108 (90 Base) MCG/ACT inhaler 2 puff 2 puff Inhalation Q6H PRN Rigo Trevino MD 2 puff at 12/23/22 1522 amLODIPine (NORVASC) tablet 5 mg 5 mg Oral Daily Toi Zimmerman MD 5 mg at 12/24/22826 aspirin EC (ECOTRIN) tablet 81 mg 81 mg Oral Daily Toi Zimmerman MD 81 mg at 12/24/22826 gabapentin (NEURONTIN) capsule 100 mg 100 mg Oral TID Rigo Trevino MD 100 mg at 12/24/22826 guaiFENesin ER (MUCINEX) 12 hr tablet 600 mg 600 mg Oral BID Francisco Soto MD 600 mg at 12/24/22826 heparin (porcine) injection 5,000 Units 5,000 Units Subcutaneous 2 times per day Christopher Roberts III, MD 5,000 Units at 12/24/22826 HYDROcodone-acetaminophen (NORCO) 5-325 MG tablet 1 tablet 1 tablet Oral Q4H PRN Christopher Roberts III, MD 1 tablet at 12/20/22 1654 metoprolol succinate ER (TOPROL-XL) 24 hr tablet 50 mg 50 mg Oral Daily Toi Zimmerman MD 50 mg at 12/24/22826 naLOXone (NARCAN) injection 0.4 mg 0.4 mg Intravenous PRN Christopher Roberts III, MD normal saline 0.9 % flush 3-10 mL 3-10 mL Intravenous Q8H Christopher Roberts III, MD 10 mL at 12/23/22 2018 normal saline 0.9 % flush 3-10 mL 3-10 mL Intravenous PRN Christopher Roberts III, MD ondansetron (ZOFRAN) injection 4 mg 4 mg Intravenous Q8H PRN Christopher Roberts III, MD polyethylene glycol (GLYCOLAX) packet 17 g 17 g Oral Daily PRN Christopher Roberts III, MD polyvinyl alcohol (LIQUIFILM/ARTIFICIAL TEARS) 1.4 % ophthalmic solution 1 drop 1 drop Both Eyes PRN Francisco Soto MD 1 drop at 12/23/22 1523 sodium bicarbonate tablet 1,300 mg 1,300 mg Oral BID Adan Horton MD 1,300 mg at 12/24/22 0830 sodium chloride 0.45% infusion Intravenous Continuous Rigo Trevino MD 75 mL/hr at 12/24/22 0017 New Bag at 12/24/22 0017 No Known Allergies Principal Problem: Acute renal failure superimposed on stage 4 chronic kidney disease, unspecified acute renal failuretype (HHS/HCC) ([facility]) SNOMED CT(R): [id number] RENAL FAILURE Active Problems: Acute renal failure superimposed on chronic kidney disease ([facility]) SNOMED CT(R): [id number] RENAL FAILURE Filed Vitals: 12/23/22 0740 12/23/22 0741 12/23/22201212/24/22 0809 BP: (!) 131/102 (!) 168/95 131/76 (!) 157/85 Pulse: 71 70 69 (!) 58 Resp: 18 20 18 Temp: 98.1 ??F (36.7 ??C) 98.4 ??F (36.9 ??C) TempSrc: Oral Oral SpO2: 96% 94% 96% Weight: Height: Last 3 Recorded Weights 12/20/22 0238 Weight: 84.5 kg (186 lb 4.6 oz) Intake/Output Summary (Last 24 hours) at 12/24/2022 1021 Last data filed at 12/24/2022 0938 Gross per 24 hour Intake 200 ml Output 0 ml Net 200 ml Physical Exam: Awake not in distress -GENERAL: No acute distress, breathing comfortably on room air. -EYES: Extraocular movements intact -ENT: Neck supple, Septum is midline. -LUNG: Clear to auscultation bilaterally, No wheezes, No crackles -CVS: Regular rate rhythm, S1 and S2 normal, No murmurs, -ABDOMEN: Soft, nondistended, Nontender, Bowel sounds observed -EXT: no lower Ext edema. -NEURO: Alert, awake, oriented x3, No gross neuro deficit -SKIN: Skin color, texture, turgor normal. No rashes or lesions LABs Recent Labs Lab 12/19/22205712/20/22 0509 12/21/22 0454 12/22/22 0444 12/23/22 0921 12/24/22 0343 NA 143 144 143 146* 143 144 K 3.7 3.5 3.8 4.4 4.7 4.4 CL 108* 119* 120* 121* 119* 118* CO2 23.1 17.6* 17.1* 15.9* 16.8* 19.6* AGAP 11.9 7.4 5.9 9.1 7.2 6.4 BUN 78* 66* 55* 48* 38* 37* CR 4.70* 4.30* 3.77* 3.29* 3.12* 3.02* GLU 143* 114* 105 111* -- -- CA 8.9 8.5 8.5 8.5 8.8 8.8 MAGNESIUM 2.4 -- -- -- -- -- PHOS -- -- 3.8 -- -- -- Recent Labs Lab 12/19/22205712/20/22 0509 12/21/22 0447 12/22/22 0952 WBC 10.58 8.78 7.95 8.89 RBC 4.42 4.09* 4.00* 4.12 HGB 13.4 12.4 12.2 12.4 HCT 41.8 38.9 38.2 39.1 MCV 94.6 95.1 95.5 94.9 MCH 30.3 30.3 30.5 30.1 MCHC 32.1* 31.9* 31.9* 31.7* PLT 229 212 213 261 RDW 13.6 13.6 13.8 13.7 MPV 10.1 11.0* 10.9* 10.2 Assessment/Plan: 72-year-old lady with history of chronic kidney disease stage IV, COPD, depression, dyslipidemia, hypertension, ischemic stroke, short memory loss, neuropathy who was admitted on 12/20 due to lethargyand confusion. Patient found to have GREG on CKD. Patient reports no nausea, vomiting, diarrhea, NSAID use. 1. GREG on CKD stage IV -Patient has CKD stage IV ; she reports that she transferred care to nephrology group at [place], [place]. -Last year creatinine was 2.8. Patient's son reports that her autos disassembler has discussed dialysis with them. -On presentation creatinine was found to be 4.7 and BUN 78. -BUN and creatinine are improving. 3.1 -CT abdomen:small bilateral kidneys with subcentimeter cystic foci demonstrating internal density. No hydronephrosis. -half saline ok at 75 ml hour -No indication for dialysis -Avoid nephrotoxins, avoid hypotension -Follow-up with her autos disassembler in 1 week after discharge 2.HTN -BP stable. On amlodipine and metoprolol 3.Anemia of chronic disease Hemoglobin 12.2. No indication for IESHA 4.FEN Bicarb 15.9, started sodium bicarb 12/21/22 5.Renal osteodystrophy Calcium 8.5 Phosphorus 3.8 Thank you for allowing me to participate in the care of this patient. We will continue to follow this patient with you. Please contact us with further questions. Up on dc need follow up with Nephro at [facility] PAVAN LAI MD 12/24/2022 * VERN Bautista - 12/24/2022 8:46 AM CDT OT Treatment Discharge Recommendation: Swing bed unit Activity Recommendation for supervisor matrix: Up with assist of 1, gb, and walker. 12/24/22818 Therapy Visit OT Received On 12/24/22 Reason for admission Pt admitted to hospital after a fall at home; acute renal failure supimposed on stage 4 chronic kidney disease......Therapy orders: Eval and Treat......PMH: CVA with R sided residual deficits, CKD, COPD, depression, displaced R proximal humeral fx, HLD, neuropathy, and UTI. Ordering Provider Christopher Roberts III, MD Verified Two Patient Identifiers Yes Patient consents to therapy Yes Acute Inpatient OT Time Calculation OT Start Time 818 OT Stop Time 845 OT Time Calculation (min) 27 min Precautions General Precautions Fall Risk;Chair Alarm;Multiple lines Instructed on Precautions Yes;Verbalizes understanding Other tele, IV Home Living Home Living Comments Per eval, pt lives alone in a one-story home with 4 ALBERT with bilateral rails. Pt has a tub shower with grab bars and shower chair and standard toilet. Prior to admission, patientambulated household distances and completed ADLs independently. Pt does not leave home, and states she would need assistance to ascend/descend stairs. Pt has a cane and a walker at home. Her son lives nearby and is home in the evenings. Subjective Subjective Pt supine in bed upon arrival to room. Pt agrees to OT txt with encouragement. Pain Pain Yes Pain Score Did not rate Location Rt ankle Interventions Re-direction;Re-positioning Activity Tolerance Activity Tolerance Comments Limited by acute weakness and pain Cognition Overall Cognitive Status WFL Arousal/Alertness Appropriate responses to stimuli Attention Span Appears intact Memory Appears intact Orientation Level Oriented X4 Following Commands Follows all commands and directions without difficulty Safety Judgment Good awareness of safety precautions Awareness of Errors Good awareness of errors made Deficits Fully aware of deficits Problem Solving Able to problem solve independently ADL Grooming Assistance Stand by;Sitting in chair Grooming Deficit Wash/dry face;Brushing hair Grooming Comment set up assist seated in chair d/t poor standing tolerance secondary to pain UE Dressing Assistance Stand by;Sitting in chair UE Dressing Deficit Thread RUE;Thread LUE LE Dressing Assistance Moderate LE Dressing Deficit Don/doff L sock;Don/doff R sock LE Dressing Comment Pt with continued complaints of Rt ankle pain (x-ray negative) and quick fatigue with rib pain. Bed Mobility Supine to Sit Min assist to right Other (Comment) Step by step instruction on technique with support of bed rail as needed with MIN Nikita bring trunk upright. Functional Transfers Sit to Stand Contact guard assist Bed to Chair Contact guard assist Functional Mobility Instructed pt in sit to stand from EOB to walker with verbal cues on hand positioning and general technique providing CGA with additional time to perform. Once up, pt was able to utilize UE support of walker to take several steps to chair requiring CGA however increased pain in Rt LE limiting ability to take steps backward to chair despite education on technique and encouragement to try. Ultimately, therapist had to bring chair closer to pt so she could sit. Pt declines further mobility. Balance Sitting - Static Independent Sitting - Dynamic Independent Standing - Static CGA;Support of both upper extremities Standing - Dynamic CGA;Support of both upper extremities Other (Comment) No LOB ; CGA with 2ww support. Mostly limited by pain. OT Assessment OT Assessment Pt tolerates session fair with slow progression toward goals at this time. Pt is limited by pain, acute deconditioning, fatigue, and weakness. Pt will require continued therapy at [facility] to maximize her functional independence and safety. Discharge Recommendation OT Recommendation Swing bed unit Plan OT Treatment/Intervention Self-care training;Therapeutic exercises;Therapeutic activities;Safety;Functional activity;Continued evaluation;Patient/family training Progress Slow progress, decreased activity tolerance OT Frequency 5 times/week OT - Next Appointment 12/24/22 If this is the last treatment note, it will serve as the discharge summary Yes End of Session End of Session Safety Chair alarm set/activated;Call light within reach;Nursing aware of session Education: Primary Learners Name: Trisha Lawrence Primary Language of learner: Moldovan Patient was educated on precautions exercises transfers ADLs balance bed mobility therapy plan safety energy conservation adaptive skills. Education was completed one to one this date. Preference of learning new concepts one to one Barriers to education this date were Pt motivation. Response to education this date needs follow up. * Veronique Leach RN - 12/23/2022 9:49 PM CDT Problem: Reduced risk for falls/injury Goal: Reduced Risk for Falls/Injury Outcome: Progressing Goal: Reduced Risk of Confusion (Acute vs Chronic) Outcome: Progressing Goal: Reduced Risk of Symptomatic Depression Outcome: Progressing Goal: Reduced Risk of Altered Elimination Outcome: Progressing Goal: Reduced Risk of Dizziness/Vertigo/Balance Outcome: Progressing Goal: Reduced Risk of Polypharmacy Outcome: Progressing * Pavan Lai MD - 12/23/2022 2:49 PM CDT [facility] Nephrology Progress Note Trisha Lawrence is a 72-year-old female patient. Seen for greg HPI 72-year-old lady with history of chronic kidney disease stage IV, COPD, depression, dyslipidemia, hypertension, ischemic stroke, short memory loss, neuropathy who was admitted on 12/20 due to lethargyand confusion. Patient found to have GREG on CKD. Patient has CKD stage IV, last year creatinine was2.8. On presentation creatinine was found to be 4.7 and BUN 78. I was consulted to manage GREG on CKD. Patient used to follow-up with Dr. Fung, she reports that she transferred care to [facility] at [place], [place], Patient reports no nausea, vomiting, diarrhea, NSAID use Subjective Doing better Review Of Systems 12 point negative -General: Negative for fever, chills, malaise, or fatigue. -Eyes: Negative for eye pain, eye redness, eye discharge or itchiness. -ENT Negative for nasal congestion, nasal discharge, earache or sore throat. -Cardiovascular: Negative for chest pain, palpitation, lower Ext. edema or lightheadedness. -Respiratory: Negative for shortness of breath, wheezing, cough, or hemoptysis. -Gastrointestinal: Negative for abdominal pain, bloating, Nausea, vomiting, diarrhea, constipation,hematemesis, or hematochezia. -Genitourinary: Negative for dysuria, frequency, urgency, nocturia, polyuria, or hematuria. -Musculoskeletal: Negative for joint pain, muscle aches, back pain, joint swelling or stiffness. -Dermatological: no rash, pruritus or color changes. -Neurological: Negative for headache, confusion, dizziness, numbness, weakness, or visual problems. -Endocrine: Negative for night sweats or generalized weakness. -Hematologic: Negative for jaundice, easy bleeding, easy bruising, or blood clots. Current Facility-Administered Medications Medication Dose Route Frequency Provider Last Rate Last Admin acetaminophen (TYLENOL) tablet 650 mg 650 mg Oral Q4H PRN Christopher Roberts III, MD 650 mg at 12/23/22 0920 albuterol sulfate HFA 108 (90 Base) MCG/ACT inhaler 2 puff 2 puff Inhalation Q6H PRN Rigo Trevino MD 2 puff at 12/22/222050 amLODIPine (NORVASC) tablet 5 mg 5 mg Oral Daily Toi Zimmerman MD 5 mg at 12/23/22902 aspirin EC (ECOTRIN) tablet 81 mg 81 mg Oral Daily Toi Zimmerman MD 81 mg at 12/23/22 09 gabapentin (NEURONTIN) capsule 100 mg 100 mg Oral TID Rigo Trevino MD 100 mg at 12/23/22 09 guaiFENesin ER (MUCINEX) 12 hr tablet 600 mg 600 mg Oral BID Francisco Soto MD 600 mg at 12/23/22 0955 heparin (porcine) injection 5,000 Units 5,000 Units Subcutaneous 2 times per day Christopher Roberts III, MD 5,000 Units at 12/23/22 0902 HYDROcodone-acetaminophen (NORCO) 5-325 MG tablet 1 tablet 1 tablet Oral Q4H PRN Christopher Roberts III, MD 1 tablet at 12/20/22 1654 metoprolol succinate ER (TOPROL-XL) 24 hr tablet 50 mg 50 mg Oral Daily Toi Zimmerman MD 50 mg at 12/23/22 0903 naLOXone (NARCAN) injection 0.4 mg 0.4 mg Intravenous PRN Christopher Roberts III, MD normal saline 0.9 % flush 3-10 mL 3-10 mL Intravenous Q8H Christopher Roberts III, MD 10 mL at 12/22/22 2042 normal saline 0.9 % flush 3-10 mL 3-10 mL Intravenous PRN Christopher Roberts III, MD ondansetron (ZOFRAN) injection 4 mg 4 mg Intravenous Q8H PRN Christopher Roberts III, MD polyethylene glycol (GLYCOLAX) packet 17 g 17 g Oral Daily PRN Christopher Roberts III, MD polyvinyl alcohol (LIQUIFILM/ARTIFICIAL TEARS) 1.4 % ophthalmic solution 1 drop 1 drop Both Eyes PRN Francisco Soto MD sodium bicarbonate tablet 1,300 mg 1,300 mg Oral BID Adan Horton MD 1,300 mg at 12/23/22 0903 sodium chloride 0.45% infusion Intravenous Continuous Rigo Trevino MD 75 mL/hr at 12/23/22 0647 New Bag at 12/23/22 0647 No Known Allergies Principal Problem: Acute renal failure superimposed on stage 4 chronic kidney disease, unspecified acute renal failuretype (HHS/HCC) ([facility]) SNOMED CT(R): [id number] RENAL FAILURE Active Problems: Acute renal failure superimposed on chronic kidney disease ([facility]/HCC) SNOMED CT(R): [id number] RENAL FAILURE Filed Vitals: 12/22/22 1013 12/22/22 2024 12/23/22 0740 12/23/22 0741 BP: (!) 146/80 (!) 154/99 (!) 131/102 (!) 168/95 Pulse: 66 69 71 70 Resp: 18 18 18 Temp: 97.5 ??F (36.4 ??C) 98.1 ??F (36.7 ??C) TempSrc: Oral Oral SpO2: 94% 96% 96% Weight: Height: Last 3 Recorded Weights 12/20/22 0238 Weight: 84.5 kg (186 lb 4.6 oz) Intake/Output Summary (Last 24 hours) at 12/23/2022 1449 Last data filed at 12/23/2022 1020 Gross per 24 hour Intake 237 ml Output 0 ml Net 237 ml Physical Exam: Awake and not in distress -GENERAL: No acute distress, breathing comfortably on room air. -EYES: Extraocular movements intact -ENT: Neck supple, Septum is midline. -LUNG: Clear to auscultation bilaterally, No wheezes, No crackles -CVS: Regular rate rhythm, S1 and S2 normal, No murmurs, -ABDOMEN: Soft, nondistended, Nontender, Bowel sounds observed -EXT: no lower Ext edema. -NEURO: Alert, awake, oriented x3, No gross neuro deficit -SKIN: Skin color, texture, turgor normal. No rashes or lesions LABs Recent Labs Lab 12/19/22205712/20/2250812/21/224 12/22/2244312/23/22 0921 NA 143 144 143 146* 143 K 3.7 3.5 3.8 4.4 4.7 CL 108* 119* 120* 121* 119* CO2 23.1 17.6* 17.1* 15.9* 16.8* AGAP 11.9 7.4 5.9 9.1 7.2 BUN 78* 66* 55* 48* 38* CR 4.70* 4.30* 3.77* 3.29* 3.12* GLU 143* 114* 105 111* -- CA 8.9 8.5 8.5 8.5 8.8 MAGNESIUM 2.4 -- -- -- -- PHOS -- -- 3.8 -- -- Recent Labs Lab 12/19/22205712/20/2250812/21/22 04412/22/22 0952 WBC 10.58 8.78 7.95 8.89 RBC 4.42 4.09* 4.00* 4.12 HGB 13.4 12.4 12.2 12.4 HCT 41.8 38.9 38.2 39.1 MCV 94.6 95.1 95.5 94.9 MCH 30.3 30.3 30.5 30.1 MCHC 32.1* 31.9* 31.9* 31.7* PLT 229 212 213 261 RDW 13.6 13.6 13.8 13.7 MPV 10.1 11.0* 10.9* 10.2 Assessment/Plan: 72-year-old lady with history of chronic kidney disease stage IV, COPD, depression, dyslipidemia, hypertension, ischemic stroke, short memory loss, neuropathy who was admitted on 12/20 due to lethargyand confusion. Patient found to have GREG on CKD. Patient reports no nausea, vomiting, diarrhea, NSAID use. 1. GREG on CKD stage IV -Patient has CKD stage IV ; Patient used to follow-up with Dr. Fung, she reports that she transferred care to nephrology group at [place], [place]. -Last year creatinine was 2.8. Patient's son reports that her autos disassembler has discussed dialysis with them. -On presentation creatinine was found to be 4.7 and BUN 78. -BUN and creatinine are improving. -CT abdomen:small bilateral kidneys with subcentimeter cystic foci demonstrating internal density. No hydronephrosis. -half saline ok at 75 ml hour -No indication for dialysis -Avoid nephrotoxins, avoid hypotension -Follow-up with her autos disassembler in 1 week after discharge 2.HTN -BP stable. On amlodipine and metoprolol 3.Anemia of chronic disease Hemoglobin 12.2. No indication for IESHA 4.FEN Bicarb 15.9, started sodium bicarb 12/21/22 5.Renal osteodystrophy Calcium 8.5 Phosphorus 3.8 Thank you for allowing me to participate in the care of this patient. We will continue to follow this patient with you. Please contact us with further questions. PAVAN LAI MD 12/23/2022 * Kika Pantoja RN - 12/23/2022 1:12 PM CDT Met with patient at bedside for CM assessment. patient lives at home alone but her son lives close by. Patient requires assistance with adl's and her son helps her. Patient ambulates with a walker. Patient would like to return home if able. If she is able she would like [facility]. At present time therapyrecommending swing bed. Patient would like to stay in [place]. Referral sent. If patient is discharged home her son will transport her. Patient is agreeable to referral to dept of aging for interimcare. Referral sent. Case management will continue to follow for discharge needs. 12/23/22 1310 Referral Data Source of Information Patient;Chart review Patient Information Primary Caregiver Self;Family Current living Situation Alone Type of Residence Private residence Support System Immediate family Recent Hospitalization Recent Hospitalization within 30 days No Baseline ADL's Active DME Walker Behavior Oriented;Cooperative Communication Talks;Understands Moldovan Psychosocial Need Indicator Mental health concerns No DC screening tool This is a screening tool it does not take the place of a physical or occupational therapy evaluation. The screening is to screen the patient for what services and destination would be beneficial for patient for next level of care Conversation with the patient/family Anticipated DC Plan Living Arrangements Alone Support Systems Children Type of Residence Private residence Patient expects to be discharged to: Home or Self care * Francisco Soto MD - 12/23/2022 10:25 AM CDT Progress note SUBJECTIVE: Chief Complaint: GREG on CKD Very slow to move around. Oral intake is slowly improving. No nausea/vomiting/chest pain. No other complaints at present. Review of Systems All other systems reviewed and are negative. OBJECTIVE Blood pressure (!) 168/95, pulse 70, temperature 98.1 ??F (36.7 ??C), temperature source Oral, resp. rate 18, height 5' 7 (1.702 m), weight 84.5 kg (186 lb 4.6 oz), SpO2 96 %. Physical Exam Constitutional: Appearance: She is well-developed. HENT: Head: Normocephalic and atraumatic. Mouth/Throat: Mouth: Mucous membranes are moist. Eyes: Conjunctiva/sclera: Conjunctivae normal. Neck: Thyroid: No thyromegaly. Trachea: No tracheal deviation. Cardiovascular: Rate and Rhythm: Normal rate and regular rhythm. Heart sounds: Normal heart sounds. Pulmonary: Effort: Pulmonary effort is normal. No respiratory distress. Breath sounds: Wheezing present. No rales. Abdominal: General: Bowel sounds are normal. There is no distension. Palpations: Abdomen is soft. Tenderness: There is no abdominal tenderness. Musculoskeletal: General: No swelling. Cervical back: Neck supple. Skin: General: Skin is warm and dry. Findings: No erythema. Neurological: General: No focal deficit present. Mental Status: She is alert. Mental status is at baseline. Cranial Nerves: No cranial nerve deficit. LABS:. Recent Labs 12/21/2244612/22/22951 WBC 7.95 8.89 HGB 12.2 12.4 HCT 38.2 39.1 MCV 95.5 94.9 PLT 213 261 RBC 4.00* 4.12 Recent Labs Lab 12/19/22205712/20/22 0509 12/21/2245312/22/2244312/23/22 09 NA 143 144 143 146* 143 K 3.7 3.5 3.8 4.4 4.7 CL 108* 119* 120* 121* 119* CO2 23.1 17.6* 17.1* 15.9* 16.8* AGAP 11.9 7.4 5.9 9.1 7.2 BUN 78* 66* 55* 48* 38* CR 4.70* 4.30* 3.77* 3.29* 3.12* GLU 143* 114* 105 111* -- CA 8.9 8.5 8.5 8.5 8.8 TP 7.5 -- -- -- -- ALB 3.6 -- -- -- -- TBIL 0.6 -- -- -- -- ALKP 101 -- -- -- -- AST 14* -- -- -- -- ALT 16 -- -- -- -- No results for input(s): INR in the last 168 hours. No intake or output data in the 24 hours ending 12/23/22 1025 RADIOLOGY : REVIEWED MEDICATIONS Scheduled medications amLODIPine 5 mg Oral Daily aspirin EC 81 mg Oral Daily gabapentin 100 mg Oral TID guaiFENesin ER 600 mg Oral BID heparin (porcine) 5,000 Units Subcutaneous 2 times per day metoprolol succinate ER 50 mg Oral Daily normal saline 3-10 mL Intravenous Q8H sodium bicarbonate 1,300 mg Oral BID Infusion sodium chloride 75 mL/hr at 12/23/22 0647 PRN acetaminophen, albuterol sulfate HFA, HYDROcodone-acetaminophen, naLOXone, normal saline, ondansetron, polyethylene glycol, polyvinyl alcohol ASSESSMENT /PLAN Trisha Lawrence is a 72-year-old female Admitted with Acute renal failure superimposed on stage 4 chronic kidney disease, unspecified acute renal failuretype (HHS/HCC) ([facility]) Acute renal failure superimposed on chronic kidney disease ([facility]/HCC) PLAN: #GREG on CKD stage IV -Prerenal from dehydration continue with IV fluids creatinine is trending down. - Creatinine improving. D/w nephrology, appreciated recommendations. . -Avoid NSAIDs use avoid any other nephrotoxic agents. #Generalized weakness -Evaluated by physical and Occupational Therapy they are recommending swing bed placement. Case management to discuss with patient. #Metabolic encephalopathy secondary from GREG mentation is improving continue to monitor mentation. #Hypernatremia - cont 0.45 nacl at 75cc/hr. #COPD not in any acute exacerbation continue with as needed nebulizer. - add inhaler as well. #DVT prophylaxis; on heparin drip. Code status: Full Code PT/OT recs Swing bed, CM on board, possible d/c by Sunday. Dr. Soto will assume care in AM. FRANCISCO SOTO MD 10:25 AM 12/23/2022 * CURLY Minaya - 12/22/2022 5:01 PM CDT OT Treatment Discharge Recommendation: Swing bed unit Activity Recommendation for supervisor matrix: Up with 2, gait belt and 2ww 12/22/22 1645 Therapy Visit Reason for admission Pt admitted to hospital after a fall at home; acute renal failure supimposed on stage 4 chronic kidney disease......Therapy orders: Eval and Treat......PMH: CVA with R sided residual deficits, CKD, COPD, depression, displaced R proximal humeral fx, HLD, neuropathy, and UTI. Ordering Provider Christopher Roberts III, MD Acute Inpatient OT Time Calculation OT Start Time 1645 OT Stop Time 1701 OT Time Calculation (min) 16 min Precautions General Precautions Fall Risk;Chair Alarm;Multiple lines Instructed on Precautions Yes;Verbalizes understanding Other tele, IV Home Living Home Living Comments Pt lives alone in a one-story home with 4 ALBERT with bilateral rails. Pt has a tub shower with grab bars and shower chair and standard toilet. Prior to admission, patient ambulatedhousehold distances and completed ADLs independently. Pt does not leave home, and states she would need assistance to ascend/descend stairs. Pt has a cane and a walker at home. Her son lives nearby and is home in the evenings. Subjective Subjective RN ok'd therapy session. Pt supine in bed upon entering room. Pt agreeable to session. Pain Pain Yes Pain Score Did not rate Location L side of body Interventions Re-direction;Re-positioning Activity Tolerance Activity Tolerance Comments Limited by acute weakness and pain Cognition Overall Cognitive Status WFL Arousal/Alertness Appropriate responses to stimuli Attention Span Appears intact Memory Appears intact Orientation Level Oriented X4 Following Commands Follows all commands and directions without difficulty ADL Eating/Feeding Assistance Independent;Sitting upright in bed Additional Comments Deffered further ADLs due to food in room Bed Mobility Supine to Sit Max assist to right Sit to Supine Max assist to left Other (Comment) Pt needed assistance to bring LEs out of bed and to sit trunk up. Pt needed assistance to bring BLEs into bed. Pt needed assistance to boost up in bed Functional Transfers Sit to Stand Mod assist Functional Mobility Pt stood 2 times from EOB with modA to 2ww. Pt stood for about 1 min each standbefore needing to sit down. Pt unable to take steps to HOB at this time stating it was too painful Balance Sitting - Static Independent Sitting - Dynamic Independent Standing - Static CGA;Support of both upper extremities Standing - Dynamic Not Tested Other (Comment) Pt unsteady but no LOB during this session OT Assessment OT Assessment Pt making slow progress toward OT goals. Pt limited by weakenss, fatigue, acute deconditioning and pain. Pt would continue to benefit from skilled OT in the acute setting before d/c to swing bed unit to further improve strengh, balance, transfers and ADL independence Discharge Recommendation OT Recommendation Swing bed unit Plan Progress Slow progress, decreased activity tolerance OT Frequency 5 times/week OT - Next Appointment 12/22/22 If this is the last treatment note, it will serve as the discharge summary Yes End of Session End of Session Safety Bed alarm set/activated;Call light within reach;Nursing aware of session Education: Primary Learners Name: Trisha Lwarence Primary Language of learner: Moldovan Patient was educated on transfers ADLs balance bed mobility therapy plan safety. Education was completed one to one verbal this date. Preference of learning new concepts one to one verbal Barriers to education this date were pain fatigue. Response to education this date verbalized understanding verbalized recall. * Rigo Trevino MD - 12/22/2022 12:48 PM CDT Progress note SUBJECTIVE: Chief Complaint: GREG on CKD Patient working with physical therapy. Very slow to move around. Oral intake is slowly improving. No nausea/vomiting/chest pain. No other complaints at present. Review of Systems All other systems reviewed and are negative. OBJECTIVE Blood pressure (!) 146/80, pulse 66, temperature 98.1 ??F (36.7 ??C), temperature source Oral, resp. rate 18, height 5' 7 (1.702 m), weight 84.5 kg (186 lb 4.6 oz), SpO2 94 %. Physical Exam Constitutional: Appearance: She is well-developed. HENT: Head: Normocephalic and atraumatic. Mouth/Throat: Mouth: Mucous membranes are moist. Eyes: Conjunctiva/sclera: Conjunctivae normal. Neck: Thyroid: No thyromegaly. Trachea: No tracheal deviation. Cardiovascular: Rate and Rhythm: Normal rate and regular rhythm. Heart sounds: Normal heart sounds. Pulmonary: Effort: Pulmonary effort is normal. No respiratory distress. Breath sounds: Wheezing present. No rales. Abdominal: General: Bowel sounds are normal. There is no distension. Palpations: Abdomen is soft. Tenderness: There is no abdominal tenderness. Musculoskeletal: General: No swelling. Cervical back: Neck supple. Skin: General: Skin is warm and dry. Findings: No erythema. Neurological: General: No focal deficit present. Mental Status: She is alert. Mental status is at baseline. Cranial Nerves: No cranial nerve deficit. LABS:. Recent Labs 12/20/22 0509 12/21/22 0447 12/22/22 0952 WBC 8.78 7.95 8.89 HGB 12.4 12.2 12.4 HCT 38.9 38.2 39.1 MCV 95.1 95.5 94.9 PLT 212 213 261 RBC 4.09* 4.00* 4.12 Recent Labs Lab 12/19/22205712/20/22 0509 12/21/22 0454 12/22/22 0444 NA 143 144 143 146* K 3.7 3.5 3.8 4.4 CL 108* 119* 120* 121* CO2 23.1 17.6* 17.1* 15.9* AGAP 11.9 7.4 5.9 9.1 BUN 78* 66* 55* 48* CR 4.70* 4.30* 3.77* 3.29* GLU 143* 114* 105 111* CA 8.9 8.5 8.5 8.5 TP 7.5 -- -- -- ALB 3.6 -- -- -- TBIL 0.6 -- -- -- ALKP 101 -- -- -- AST 14* -- -- -- ALT 16 -- -- -- No results for input(s): INR in the last 168 hours. Intake/Output Summary (Last 24 hours) at 12/22/2022 1248 Last data filed at 12/21/2022 2208 Gross per 24 hour Intake 100 ml Output -- Net 100 ml RADIOLOGY : REVIEWED MEDICATIONS Scheduled medications amLODIPine 5 mg Oral Daily aspirin EC 81 mg Oral Daily gabapentin 100 mg Oral TID heparin (porcine) 5,000 Units Subcutaneous 2 times per day metoprolol succinate ER 50 mg Oral Daily normal saline 3-10 mL Intravenous Q8H sodium bicarbonate 1,300 mg Oral BID Infusion sodium chloride 75 mL/hr at 12/22/22 0930 PRN acetaminophen, HYDROcodone-acetaminophen, naLOXone, normal saline, ondansetron, polyethylene glycol ASSESSMENT /PLAN Trisha Lawrence is a 72-year-old female Admitted with Acute renal failure superimposed on stage 4 chronic kidney disease, unspecified acute renal failuretype ([facility]/HCC) ([facility]) Acute renal failure superimposed on chronic kidney disease ([facility]) PLAN: #GREG on CKD stage IV -Prerenal from dehydration continue with IV fluids creatinine is trending down. - Creatinine improving. D/w nephrology, appreciated recommendations. . -Avoid NSAIDs use avoid any other nephrotoxic agents. #Generalized weakness -Evaluated by physical and Occupational Therapy they are recommending swing bed placement. Case management to discuss with patient. #Metabolic encephalopathy secondary from GREG mentation is improving continue to monitor mentation. #Hypernatremia - due to IV fluids. Change fluid to 0.45 nacl at 75cc/hr. #COPD not in any acute exacerbation continue with as needed nebulizer. - add inhaler as well. #DVT prophylaxis; on heparin drip. Code status: Full Code PT/OT recs Swing bed, CM on board, possible d/c by Sunday. Dr. Soto will assume care in AM. RIGO TREVINO MD 12:48 PM 12/22/2022 * Carlos Herrera, [employer] - 12/22/2022 11:22 AM CDT PT Treatment Discharge Recommendation: Swing bed unit DME equipment recommendation: tbd Activity Recommendation for supervisor matrix: up with assist of 1-2,gt belt and walker . 12/22/22 1109 Therapy Visit Ordering Provider Christopher Roberts III, MD Subjective RN gave permission to see pt.Pt willing to try Reason for admission Pt admitted to hospital after a fall at home; acute renal failure supimposed on stage 4 chronic kidney disease......Therapy orders: Eval and Treat......PMH: CVA with R sided residual deficits, CKD, COPD, depression, displaced R proximal humeral fx, HLD, neuropathy, and UTI. Verified Two Patient Identifiers Yes Patient consents to therapy Yes Acute Inpatient PT Time Calculation PT Start Time 0925 PT Stop Time 1000 PT Time Calculation (min) 35 min Precautions General Precautions Fall Risk;Chair Alarm;Multiple lines Instructed on Precautions Yes;Verbalizes understanding Other tele, IV Home Living Home Living Comments Pt lives alone in a one-story home with 4 ALBERT with bilateral rails. Pt has a tub shower with grab bars and shower chair and standard toilet. Prior to admission, patient ambulatedhousehold distances and completed ADLs independently. Pt does not leave home, and states she would need assistance to ascend/descend stairs. Pt has a cane and a walker at home. Her son lives nearby and is home in the evenings. Pain Pain Yes Pain Score Did not rate Location chest Interventions Re-positioning;Relaxation;Re-direction;Informed RN Activity Tolerance VS Response During Activity Noted pt pursed lip breathing and hands cold.Spo2 was at 92% in increased time due to cold hands Activity Tolerance Comments Limited by acute weakness and pain Cognition Overall Cognitive Status WFL Arousal/Alertness Appropriate responses to stimuli Attention Span Appears intact Memory Appears intact Orientation Level Oriented X4 Following Commands Follows all commands and directions without difficulty Safety Judgment Good awareness of safety precautions Awareness of Errors Good awareness of errors made Deficits Fully aware of deficits Problem Solving Able to problem solve independently Comments Pt alert and oriented;denied pain in any where but chest and once up in the chair, Dr noted rt ankle swelling Motor Planning Appears intact Perseveration Not present Initiation Appears intact Bed Mobility Supine to Sit Mod assist to right;Min assist to right Other (Comment) head of bed elevated and able to com eup to sitting edge of thebed with cues for use of bed rail .Pt did this 3 trials with Drs coming in to see her during session TRANSFERS Sit to Stand Min assist Bed to Chair Contact guard assist Other (Comment) Pt transferred sit to/from stand from the bed with cues to use her legs and push upwithher hands.Pt was able to take steps over to the chair.She was moving very slowly ,cautiously and required assist to wt shift and cues to move each leg forwards,sidestep and backwards.Pt demonstrating a little difficulty placing wt through her rt leg noticed swelling rt ankle and will order x-ray.Dr observed pt get up and move to the chair Gait Other (Comment) Pt was able to amb approx 3 feet and needing the chair pulled up instead of amb farther due to fatigue and pain in rt ankle .Noted rt ankle swelling once up in the chair.Pt declined further due to fatigue and pain in her rt ankle Balance Sitting - Static Independent Sitting - Dynamic Independent Standing - Static CGA;Support of both upper extremities Standing - Dynamic CGA;Support of both upper extremities Other (Comment) No loss o f balance but she did have a small buckling of legs with mobility but able to correct with cueing. PT Assessment PT Assessment Pt was only able to partciipate in bed mobility ,transfers ,standing and short distance to the chair .Pt demonstrated difficulty with wt shift and advancing legs .and placing wt throughher rt leg. observed session and noted rt ankle swelling.He discussed ordering an x-ray for the rt ankle and she deferred further .Pt is motivated but limited by pain,shortness o f breath and decreased activity tolerance.Recommend swing bed Discharge Recommendation PT Recommendation Swing bed unit PT Equipment Recommended 2 Wheeled walker Plan PT Treatments/Interventions Gait Training;Therapeutic Exercises;Therapeutic Activities;Patient/family training Progress Progressing toward goals PT Frequency 5 times/week PT - Next Appointment 12/22/22 If this is the last treatment note,it will serve as the discharge summary Yes End of Session End of Session Safety Chair alarm set/activated;Call light within reach;Nursing aware of session End of Session Comment Pt is up in the chair with chair alarm on and all needs in reach Education: Primary Learners Name: Trisha Lawrence Primary Language of learner: Moldovan Patient was educated on precautions transfers balance bed mobility gait safety energy conservation joint protection. Education was completed one to one verbal hands-on this date. Preference of learning new concepts one to one verbal hands-on Barriers to education this date were fatigue anxious physical impairment. Response to education this date demos with verbal cues needs reinforcement needs follow up needs assistance. * Pavan Lai MD - 12/22/2022 9:31 AM CDT [facility] Nephrology Progress Note Trisha Lawrence is a 72-year-old female patient. Seen for greg HPI 72-year-old lady with history of chronic kidney disease stage IV, COPD, depression, dyslipidemia, hypertension, ischemic stroke, short memory loss, neuropathy who was admitted on 12/20 due to lethargyand confusion. Patient found to have GREG on CKD. Patient has CKD stage IV, last year creatinine was2.8. On presentation creatinine was found to be 4.7 and BUN 78. I was consulted to manage GREG on CKD. Patient used to follow-up with Dr. Fung, she reports that she transferred care to [facility] at [place], [place], Patient reports no nausea, vomiting, diarrhea, NSAID use. . Subjective Complains of chest pain and is very weak; she has no cough and was able to eat breakfast Review Of Systems Chest rib cage painl ecchymosis under right breast perhaps after the syncope No cough or sob reported No nausea, emesis, diarrhea Weakness reported Current Facility-Administered Medications Medication Dose Route Frequency Provider Last Rate Last Admin acetaminophen (TYLENOL) tablet 650 mg 650 mg Oral Q4H PRN Christopher Roberts III, MD amLODIPine (NORVASC) tablet 5 mg 5 mg Oral Daily Toi Zimmerman MD 5 mg at 12/22/22 0806 aspirin EC (ECOTRIN) tablet 81 mg 81 mg Oral Daily Toi Zimmerman MD 81 mg at 12/22/22 08 gabapentin (NEURONTIN) capsule 100 mg 100 mg Oral TID Rigo Trevino MD 100 mg at 12/22/22 08 heparin (porcine) injection 5,000 Units 5,000 Units Subcutaneous 2 times per day Christopher Roberts III, MD 5,000 Units at 12/22/22 08 HYDROcodone-acetaminophen (NORCO) 5-325 MG tablet 1 tablet 1 tablet Oral Q4H PRN Christopher Roberts III, MD 1 tablet at 12/20/22 1654 metoprolol succinate ER (TOPROL-XL) 24 hr tablet 50 mg 50 mg Oral Daily Toi Zimmerman MD 50 mg at 12/22/22 0806 naLOXone (NARCAN) injection 0.4 mg 0.4 mg Intravenous PRN Christopher Roberts III, MD normal saline 0.9 % flush 3-10 mL 3-10 mL Intravenous Q8H Christopher Roberts III, MD 10 mL at 12/21/22 2214 normal saline 0.9 % flush 3-10 mL 3-10 mL Intravenous PRN Christopher Roberts III, MD ondansetron (ZOFRAN) injection 4 mg 4 mg Intravenous Q8H PRN Christopher Roberts III, MD polyethylene glycol (GLYCOLAX) packet 17 g 17 g Oral Daily PRN Christopher Roberts III, MD sodium bicarbonate tablet 1,300 mg 1,300 mg Oral BID Adan Horton MD 1,300 mg at 12/22/22 0807 sodium chloride 0.45% infusion Intravenous Continuous Rigo Trevino MD 75 mL/hr at 12/22/22 0930 New Bag at 12/22/22 0930 No Known Allergies Principal Problem: Acute renal failure superimposed on stage 4 chronic kidney disease, unspecified acute renal failuretype (HHS/HCC) ([facility]/HCC) SNOMED CT(R): [id number] RENAL FAILURE Active Problems: Acute renal failure superimposed on chronic kidney disease (CMS/HCC) SNOMED CT(R): [id number] RENAL FAILURE Filed Vitals: 12/21/22 0819 12/21/22 0821 12/21/22200712/22/22 0755 BP: (!) 150/76 (!) 151/73 106/71 (!) 170/66 Pulse: 63 62 69 60 Resp: 18 Temp: 97.7 ??F (36.5 ??C) 98.1 ??F (36.7 ??C) TempSrc: Oral SpO2: 95% 94% Weight: Height: Last 3 Recorded Weights 12/20/22 0238 Weight: 84.5 kg (186 lb 4.6 oz) Intake/Output Summary (Last 24 hours) at 12/22/2022 0931 Last data filed at 12/21/2022 2208 Gross per 24 hour Intake 100 ml Output -- Net 100 ml Physical Exam: Awake no distress -GENERAL: No acute distress, breathing comfortably on room air. -EYES: Extraocular movements intact -ENT: Neck supple, Septum is midline. -LUNG: Clear to auscultation bilaterally, No wheezes, No crackles -CVS: Regular rate rhythm, S1 and S2 normal, No murmurs, -ABDOMEN: Soft, nondistended, Nontender, Bowel sounds observed -EXT: no lower Ext edema. -NEURO: Alert, awake, oriented x3, No gross neuro deficit -SKIN: hematoma and ecchymotic area of right side chest anterior under right breast LABs Recent Labs Lab 12/19/22205712/20/22 05012/21/22 0454 12/22/22 0444 NA 143 144 143 146* K 3.7 3.5 3.8 4.4 CL 108* 119* 120* 121* CO2 23.1 17.6* 17.1* 15.9* AGAP 11.9 7.4 5.9 9.1 BUN 78* 66* 55* 48* CR 4.70* 4.30* 3.77* 3.29* GLU 143* 114* 105 111* CA 8.9 8.5 8.5 8.5 MAGNESIUM 2.4 -- -- -- PHOS -- -- 3.8 -- Recent Labs Lab 12/19/22205712/20/22 0509 12/21/22 0447 WBC 10.58 8.78 7.95 RBC 4.42 4.09* 4.00* HGB 13.4 12.4 12.2 HCT 41.8 38.9 38.2 MCV 94.6 95.1 95.5 MCH 30.3 30.3 30.5 MCHC 32.1* 31.9* 31.9* PLT 229 212 213 RDW 13.6 13.6 13.8 MPV 10.1 11.0* 10.9* Assessment/Plan: 72-year-old lady with history of chronic kidney disease stage IV, COPD, depression, dyslipidemia, hypertension, ischemic stroke, short memory loss, neuropathy who was admitted on 12/20 due to lethargyand confusion. Patient found to have GREG on CKD. Patient reports no nausea, vomiting, diarrhea, NSAID use. 1. GREG on CKD stage IV -Patient has CKD stage IV ; Patient used to follow-up with Dr. Fung, she reports that she transferred care to nephrology group at [place], [place]. -Last year creatinine was 2.8. Patient's son reports that her autos disassembler has discussed dialysis with them. -On presentation creatinine was found to be 4.7 and BUN 78. -BUN and creatinine are improving. -CT abdomen:small bilateral kidneys with subcentimeter cystic foci demonstrating internal density. No hydronephrosis. -half saline ok at 75 ml hour -No indication for dialysis -Avoid nephrotoxins, avoid hypotension -Follow-up with her autos disassembler in 1 week after discharge 2.HTN -BP stable. On amlodipine and metoprolol 3.Anemia of chronic disease Hemoglobin 12.2. No indication for IESHA 4.FEN Bicarb 15.9, started sodium bicarb 12/21/22 5.Renal osteodystrophy Calcium 8.5 Phosphorus 3.8 Thank you for allowing me to participate in the care of this patient. We will continue to follow this patient with you. Please contact us with further questions. PAVAN LAI MD 12/22/2022 * Rigo Trevino MD - 12/21/2022 2:48 PM CDT Progress note SUBJECTIVE: Chief Complaint: GREG on CKD Patient worked with physical therapy earlier today. Denies any chest pain or shortness of breath oral intake is better. No nausea or vomiting no other complaints at present. Review of Systems All other systems reviewed and are negative. OBJECTIVE Blood pressure (!) 151/73, pulse 62, temperature 98.1 ??F (36.7 ??C), temperature source Oral, resp. rate 18, height 5' 7 (1.702 m), weight 84.5 kg (186 lb 4.6 oz), SpO2 94 %. Physical Exam Constitutional: Appearance: She is well-developed. HENT: Head: Normocephalic and atraumatic. Mouth/Throat: Mouth: Mucous membranes are moist. Eyes: Conjunctiva/sclera: Conjunctivae normal. Neck: Thyroid: No thyromegaly. Trachea: No tracheal deviation. Cardiovascular: Rate and Rhythm: Normal rate and regular rhythm. Heart sounds: Normal heart sounds. Pulmonary: Effort: Pulmonary effort is normal. No respiratory distress. Breath sounds: Normal breath sounds. No rales. Abdominal: General: Bowel sounds are normal. There is no distension. Palpations: Abdomen is soft. Tenderness: There is no abdominal tenderness. Musculoskeletal: General: No swelling. Cervical back: Neck supple. Skin: General: Skin is warm and dry. Findings: No erythema. Neurological: General: No focal deficit present. Mental Status: She is alert. Mental status is at baseline. Cranial Nerves: No cranial nerve deficit. LABS:. Recent Labs 12/19/22205712/20/2250812/21/22446 WBC 10.58 8.78 7.95 HGB 13.4 12.4 12.2 HCT 41.8 38.9 38.2 MCV 94.6 95.1 95.5 PLT 229 212 213 RBC 4.42 4.09* 4.00* Recent Labs Lab 12/19/22205712/20/2250812/21/22453 NA 143 144 143 K 3.7 3.5 3.8 CL 108* 119* 120* CO2 23.1 17.6* 17.1* AGAP 11.9 7.4 5.9 BUN 78* 66* 55* CR 4.70* 4.30* 3.77* GLU 143* 114* 105 CA 8.9 8.5 8.5 TP 7.5 -- -- ALB 3.6 -- -- TBIL 0.6 -- -- ALKP 101 -- -- AST 14* -- -- ALT 16 -- -- No results for input(s): INR in the last 168 hours. Intake/Output Summary (Last 24 hours) at 12/21/2022 1448 Last data filed at 12/21/2022 0132 Gross per 24 hour Intake 980 ml Output -- Net 980 ml RADIOLOGY : REVIEWED MEDICATIONS Scheduled medications amLODIPine 5 mg Oral Daily aspirin EC 81 mg Oral Daily gabapentin 100 mg Oral TID heparin (porcine) 5,000 Units Subcutaneous 2 times per day metoprolol succinate ER 50 mg Oral Daily normal saline 3-10 mL Intravenous Q8H sodium bicarbonate 1,300 mg Oral BID Infusion sodium chloride 100 mL/hr at 12/21/22 1222 PRN acetaminophen, HYDROcodone-acetaminophen, naLOXone, normal saline, ondansetron, polyethylene glycol ASSESSMENT /PLAN Trisha Lawrence is a 72-year-old female Admitted with Acute renal failure superimposed on stage 4 chronic kidney disease, unspecified acute renal failuretype (HHS/HCC) ([facility]) Acute renal failure superimposed on chronic kidney disease ([facility]) PLAN: #GREG on CKD stage IV -Prerenal from dehydration continue with IV fluids creatinine is trending down. [facility] following appreciated the recommendation. -Avoid NSAIDs use avoid any other nephrotoxic agents. #Generalized weakness -Evaluated by physical and Occupational Therapy they are recommending swing bed placement. Case management to discuss with patient. #Metabolic encephalopathy secondary from GREG mentation is improving continue to monitor mentation. #COPD not in any acute exacerbation continue with as needed nebulizer. #DVT prophylaxis; on heparin drip. Code status: Full Code Await Improvement in renal function prior to discharge. RIGO TREVINO MD 2:48 PM 12/21/2022 * Lissette Marin, PharmD - 12/21/2022 1:01 PM CDT Pharmacy Clinical Services: Renal Dose Adjustment Note CREATININE S/P/B Date Value Ref Range Status 12/21/2022 3.77 (H) 0.55 - 1.02 MG/DL Final CrCl = estimated creatinine clearance is 15.3 mL/min (A) (based on SCr of 3.77 mg/dL (H)). Weight = 84.5 kg (186 lb 4.6 oz) According to the patient's renal function, Gabapentin was not adjusted at this time. Will continue to monitor Scr. Renal adjustment per P&T Policy LISSETTE MARIN PharmD Phone number: [phone] 12/21/2022 1:01 PM Per nicolás recommendations CrCl 15 to 29 ~75% reduction 600 mg/day in 1 to 2 divided doses Current CrCl 15.3 mL/min * Ros Lmi, PT STUDENT - 12/21/2022 9:36 AM CDT PT Initial Evaluation Discharge Recommendation: Swing bed unit Activity Recommendation for supervisor matrix: up with min assist of 1 to stand and contact guard for ambulating short distances with wh/walker. 12/21/22 1000 Therapy Visit Ordering Provider Christopher Roberts III, MD PT Received On 12/20/22 Subjective RN ok'd therapy session this morning. Pt in room 1114. Pt supine in bed at start of session with bed alarm on. Pt agreeable to therapy evaluation. Reason for admission Pt admitted to hospital after a fall at home; acute renal failure supimposed on stage 4 chronic kidney disease......Therapy orders: Eval and Treat......PMH: CVA with R sided residual deficits, CKD, COPD, depression, displaced R proximal humeral fx, HLD, neuropathy, and UTI. Verified Two Patient Identifiers Yes Patient consents to therapy Yes Acute Inpatient PT Time Calculation PT Start Time 916 PT Stop Time 935 PT Time Calculation (min) 19 min Precautions Instructed on Precautions Yes;Verbalizes understanding Other tele Home Living Home Living Comments Pt lives alone in a one-story home with 4 ALBERT with bilateral rails. Pt has a tub shower with grab bars and shower chair and standard toilet. Prior to admission, patient ambulatedhousehold distances and completed ADLs independently. Pt does not leave home, and states she would need assistance to ascend/descend stairs. Pt has a cane and a walker at home. Her son lives nearby and is home in the evenings. Pain Pain Yes Pain Score Did not rate Location pain around ribs with movement Interventions Re-direction;Re-positioning;Informed RN Activity Tolerance Activity Tolerance Comments Limited by acute weakness and pain Vision - Basic Assessment Current Vision No visual deficits Cognition Overall Cognitive Status WFL Arousal/Alertness Appropriate responses to stimuli Attention Span Appears intact Memory Appears intact Orientation Level Oriented to place;Oriented to situation;Oriented to person Following Commands Follows all commands and directions without difficulty Safety Judgment Good awareness of safety precautions Awareness of Errors Good awareness of errors made Deficits Fully aware of deficits Problem Solving Able to problem solve independently Motor Planning Appears intact Perseveration Not present Initiation Appears intact Other (Comment) Pt thought it was November 2022. Does not recall where/how she fell, but is aware of current situation. Sensation Light Touch No apparent deficits Overall Extremity Assessment Lower Extremity ROM WFL throughout; valeria LE strength grossly 4-/5 throughout RLE Assessment RLE Comment Pt states her RLE is paralyzed, but she demonstrates volitional movement and control with significant weakness noted Bed Mobility Supine to Sit Mod assist to right Other (Comment) Pt held therapist's hand to pull to sit; also required assistance at trunk to achieve upright TRANSFERS Sit to Stand Min assist Bed to Chair Contact guard assist Gait Gait Assistance Contact guard assist Assistive Device 2 Wheeled walker Distance Ambulated (ft) 5 ft Pattern R Decreased stance time;R Foot drag Other (Comment) Pt ambulated with CGA and wh/walker to foot of bed, requiring extra time and chair follow. Decreased R foot clearance during swing phase. Limited by fatigue. Balance Sitting - Static Independent Sitting - Dynamic Independent Standing - Static CGA;Support of both upper extremities Standing - Dynamic CGA;Support of both upper extremities Other (Comment) No overt LOB; however, pt unsteady with ambulation this date Assessment Personal Factors/Comorbidities Impacting Care 3-4 personal factors/comorbidities Examination of Body Systems Moderate (3 or more Elements) Objectives of Body Systems Impaired bed mobility;Impaired transfers;Impaired ambulation;Impaired balance;Impaired stair negotiation;Decreased LE strength;Decreased endurance Clinical Presentation of Patient Stable uncomplicated Complexity Level of Evaluation Moderate Prognosis Good Discharge Recommendation PT Recommendation Swing bed unit Plan PT Treatments/Interventions Gait Training;Therapeutic Exercises;Therapeutic Activities;Patient/family training PT Frequency 5 times/week PT - Next Appointment 12/21/22 If this is the last treatment note,it will serve as the discharge summary Yes End of Session End of Session Safety Chair alarm set/activated;Call light within reach;Nursing aware of session;Transfer status education Pt is a 72 year old female admitted to the hospital with acute renal failure superimposed on stage 4 chronic kidney disease s/p fall at home. Patient presents today with rib pain, bilateral lower extremity weakness, and endurance deficits. Impairments leading to deficits in bed mobility, transfers,and gait. Skilled therapy required to improve strength and endurance to increase functional independence and ensure safe discharge. PT will continue to follow and progress as able. The below POC to be followed until 12/31/22. At that time, POC will be re- assessed to ensure patient is making appropriate progression. Pt will perform supine to/from sit on flat bed surface independently to improve functional mobilityand independence after discharge. Pt will perform sit to/from stand transfer with modified independence using rolling walker to improve functional independence. Pt will ambulate 100' with modified independence using rolling walker to improve ability to ambulate in home and perform ADLs after discharge. Pt will maintain static standing balance for 2 minutes independently to improve ability to perform ADLs. Pt will side step 10' each direction modified independently with bilateral upper extremity support to improve ability to perform ADLs and household tasks. Education: Primary Learners Name: Trisha Lawrence Primary Language of learner: Moldovan Patient was educated on transfers balance bed mobility therapy plan gait safety. Education was completed one to one verbal this date. Preference of learning new concepts one to one verbal Barriers to education this date were none. Response to education this date verbalized understanding demos with verbal cues demos adequately. Cosigned by Uyen Sutton PT at 12/22/2022 7:52 AM CDT * Adan Horton MD - 12/21/2022 9:27 AM CDT [facility] Nephrology Consult Note Attending Provider: Rigo Trevino MD PCP: JASSON CUEVA MD Trisha Lawrence is an 72-year-old female. Reason for Admission: Acute renal failure superimposed on stage 4 chronic kidney disease, unspecified acute renal failure type (HHS/HCC) ([facility]) Acute renal failure superimposed on chronic kidney disease ([facility]) Reason for Consult: GREG on CKD HPI: 72-year-old lady with history of chronic kidney disease stage IV, COPD, depression, dyslipidemia, hypertension, ischemic stroke, short memory loss, neuropathy who was admitted on 12/20 due to lethargyand confusion. Patient found to have GREG on CKD. Patient has CKD stage IV, last year creatinine was2.8. On presentation creatinine was found to be 4.7 and BUN 78. I was consulted to manage GREG on CKD. Patient used to follow-up with Dr. Fung, she reports that she transferred care to [facility] at [place], [place], Patient reports no nausea, vomiting, diarrhea, NSAID use. Today patient feels fine. Has no complaints. Creatinine improving. No chest pain or dyspnea. Past Medical History: Diagnosis Date CKD (chronic kidney disease) stage 3, GFR 30-59 ml/min ([facility]) COPD (chronic obstructive pulmonary disease) ([facility]/HCC) ([facility]) Depression Displaced fracture of proximal end of right humerus 11/06/2018 HLD (hyperlipidemia) Hypertension Ischemic stroke ([facility]) ([facility]) Neuropathy UTI (urinary tract infection) Allergies: Review of patient's allergies indicates: No Known Allergies Social History Tobacco Use Smoking status: Former Packs/day: 1.00 Types: Cigarettes Smokeless tobacco: Never Substance Use Topics Alcohol use: Not Currently Past Surgical History: Procedure Laterality Date JOINT REPLACEMENT SHOULDER SURGERY TOTAL HIP ARTHROPLASTY bilateral Family History Problem Relation Name Age of Onset Heart Attack Mother No current facility-administered medications on file prior to encounter. Current Outpatient Medications on File Prior to Encounter Medication Sig amLODIPine 5 MG tablet 1 tablet (5 mg total) daily. aspirin EC 81 MG tablet Take 1 tablet (81 mg total) by mouth daily. gabapentin (NEURONTIN) 600 MG tablet Take 1 tablet (600 mg total) by mouth 3 (three) times daily. metoprolol succinate ER 50 MG 24 hr tablet Take 1 tablet (50 mg total) by mouth daily. vitamin D3, cholecalciferol, 5000 UNITS capsule Take 1 capsule (125 mcg total) by mouth daily. furosemide (LASIX) 20 MG tablet Take 1 tablet (20 mg total) by mouth daily. There are no discontinued medications. Current Facility-Administered Medications Medication Dose Route Frequency Provider Last Rate Last Admin acetaminophen (TYLENOL) tablet 650 mg 650 mg Oral Q4H PRN Christopher Roberts III, MD amLODIPine (NORVASC) tablet 5 mg 5 mg Oral Daily Toi Zimmerman MD 5 mg at 12/21/22 08 aspirin EC (ECOTRIN) tablet 81 mg 81 mg Oral Daily Toi Zimmerman MD 81 mg at 12/21/22 08 gabapentin (NEURONTIN) capsule 100 mg 100 mg Oral TID Toi Zimmerman MD 100 mg at 12/21/22 08 heparin (porcine) injection 5,000 Units 5,000 Units Subcutaneous 2 times per day Christopher Roberts III, MD 5,000 Units at 12/21/22 08 HYDROcodone-acetaminophen (NORCO) 5-325 MG tablet 1 tablet 1 tablet Oral Q4H PRN Christopher Roberts III, MD 1 tablet at 12/20/22 1654 metoprolol succinate ER (TOPROL-XL) 24 hr tablet 50 mg 50 mg Oral Daily Toi Zimmerman MD 50 mg at 12/21/22 08 naLOXone (NARCAN) injection 0.4 mg 0.4 mg Intravenous PRN Christopher Roberts III, MD normal saline 0.9 % flush 3-10 mL 3-10 mL Intravenous Q8H Christopher Roberts III, MD 10 mL at 12/21/22 08 normal saline 0.9 % flush 3-10 mL 3-10 mL Intravenous PRN Christopher Roberts III, MD ondansetron (ZOFRAN) injection 4 mg 4 mg Intravenous Q8H PRN Christopher Roberts III, MD polyethylene glycol (GLYCOLAX) packet 17 g 17 g Oral Daily PRN Christopher Roberts III, MD sodium bicarbonate tablet 1,300 mg 1,300 mg Oral BID Adan Horton MD 1,300 mg at 12/21/22 0822 sodium chloride 0.9% infusion Intravenous Continuous Christopher Roberts III, MD 100 mL/hr at 819 Rate Verify at 12/21/22 0819 Review of Systems: 10 points review of system are negative Vitals: Blood pressure (!) 151/73, pulse 62, temperature 98.1 ??F (36.7 ??C), temperature source Oral, resp. rate 18, height 5' 7 (1.702 m), weight 84.5 kg (186 lb 4.6 oz), SpO2 94 %. Last 3 Recorded Weights 12/20/22 0238 Weight: 84.5 kg (186 lb 4.6 oz) Intake/Output Summary (Last 24 hours) at 12/21/2022 09 Last data filed at 12/21/2022 0132 Gross per 24 hour Intake 1280 ml Output -- Net 1280 ml Physical Exam: -GENERAL: No acute distress, breathing comfortably on room air. -EYES: Extraocular movements intact -ENT: Neck supple, Septum is midline. -LUNG: Clear to auscultation bilaterally, No wheezes, No crackles -CVS: Regular rate rhythm, S1 and S2 normal, No murmurs, -ABDOMEN: Soft, nondistended, Nontender, Bowel sounds observed -EXT: no lower Ext edema. -NEURO: Alert, awake, oriented x3, No gross neuro deficit -SKIN: Skin color, texture, turgor normal. No rashes or lesions LABs Recent Labs Lab 12/19/22205712/20/2250812/21/22453 NA 143 144 143 K 3.7 3.5 3.8 CL 108* 119* 120* CO2 23.1 17.6* 17.1* AGAP 11.9 7.4 5.9 BUN 78* 66* 55* CR 4.70* 4.30* 3.77* GLU 143* 114* 105 CA 8.9 8.5 8.5 MAGNESIUM 2.4 -- -- PHOS -- -- 3.8 Recent Labs Lab 12/19/22205712/20/2250812/21/22446 WBC 10.58 8.78 7.95 RBC 4.42 4.09* 4.00* HGB 13.4 12.4 12.2 HCT 41.8 38.9 38.2 MCV 94.6 95.1 95.5 MCH 30.3 30.3 30.5 MCHC 32.1* 31.9* 31.9* PLT 229 212 213 RDW 13.6 13.6 13.8 MPV 10.1 11.0* 10.9* Assessment/Plan: 72-year-old lady with history of chronic kidney disease stage IV, COPD, depression, dyslipidemia, hypertension, ischemic stroke, short memory loss, neuropathy who was admitted on 12/20 due to lethargyand confusion. Patient found to have GREG on CKD. Patient reports no nausea, vomiting, diarrhea, NSAID use. 1. GREG on CKD stage IV -Patient has CKD stage IV ; Patient used to follow-up with Dr. Fung, she reports that she transferred care to nephrology group at [place], [place]. -Last year creatinine was 2.8. Patient's son reports that her autos disassembler has discussed dialysis with them. -On presentation creatinine was found to be 4.7 and BUN 78. -BUN and creatinine are improving. -CT abdomen:small bilateral kidneys with subcentimeter cystic foci demonstrating internal density. No hydronephrosis. -Patient appears dry on examination, started normal saline at 100 mill per hour -No indication for dialysis -Avoid nephrotoxins, avoid hypotension -Follow-up with her autos disassembler in 1 week after discharge 2.HTN -BP stable. On amlodipine and metoprolol 3.Anemia of chronic disease Hemoglobin 12.2. No indication for IESHA 4.FEN Bicarb 17, started sodium bicarb 5.Renal osteodystrophy Calcium 8.5 Phosphorus 3.8 Thank you for allowing me to participate in the care of this patient. We will continue to follow this patient with you. Please contact us with further questions. ADAN HORTON MD 12/21/2022 * Jose L Carlson, OT - 12/21/2022 9:17 AM CDT OT Initial Evaluation Discharge Recommendation: Swing bed unit Activity Recommendation for supervisor matrix: CGA with 2ww 12/21/22 1001 Therapy Visit OT Received On 12/21/22 Reason for admission Pt admitted to hospital after a fall at home; acute renal failure supimposed on stage 4 chronic kidney disease......Therapy orders: Eval and Treat......PMH: CVA with R sided residual deficits, CKD, COPD, depression, displaced R proximal humeral fx, HLD, neuropathy, and UTI. Previous Occupational Therapy Unknown Ordering Provider Christopher Roberts III, MD Verified Two Patient Identifiers Yes Patient consents to therapy Yes Acute Inpatient OT Time Calculation OT Start Time 916 OT Stop Time 935 OT Time Calculation (min) 19 min Precautions General Precautions Fall Risk;Chair Alarm;Multiple lines Instructed on Precautions Yes;Verbalizes understanding Other tele, IV Subjective Subjective RN ok'd therapy session this morning. Pt in room 1114. Pt supine in bed at start of session with bed alarm on. Pt agreeable to therapy evaluation. Home Living Home Living Comments Pt lives alone in a one-story home with 4 ALBERT with bilateral rails. Pt has a tub shower with grab bars and shower chair and standard toilet. Prior to admission, patient ambulatedhousehold distances and completed ADLs independently. Pt does not leave home, and states she would need assistance to ascend/descend stairs. Pt has a cane and a walker at home. Her son lives nearby and is home in the evenings. Pain Pain Yes Location pain in ribs PAPER TESTING SUPERVISOR made aware Interventions Re-direction;Re-positioning Objective Objective Pt supine in bed in room 1114B Activity Tolerance Activity Tolerance Comments Limited by acute weakness and pain Vision - Basic Assessment Current Vision No visual deficits Cognition Overall Cognitive Status WFL Orientation Level Oriented X4 Following Commands Follows all commands and directions without difficulty Comments Pt alert and oriented with intact safety awareness. Overall Extremity Assessment Upper Extremity AROM/MMT WFL bilateral UE RUE Assessment RUE Assessment WFL LUE Assessment LUE Assessment WFL Hand Function Hand Dominance Right Gross Grasp Right;Left;Functional Coordination Functional Sensation Light Touch No apparent deficits ADL Grooming Assistance CGA UE Dressing Assistance CGA LE Dressing Assistance Moderate Additional Comments Rib pain as main limiting factor to independence this date Bed Mobility Supine to Sit Mod assist to right Other (Comment) Pt held therapist's hand to pull to sit; also required assistance at trunk to achieve upright Functional Transfers Sit to Stand Min assist Bed to Chair Contact guard assist Balance Sitting - Static Independent Sitting - Dynamic Independent Standing - Static CGA;Support of both upper extremities Standing - Dynamic CGA;Support of both upper extremities Other (Comment) No overt LOB; however, pt unsteady with ambulation this date Proprioception Proprioception No apparent deficits Assessment Occupational Profile and History Complexity High (Extensive) Performance Skills Deficits Bathing/showering;Dressing;Education;Functional mobility;Personal hygiene and grooming;Toileting Performance Deficit Level High (5 or more deficits) Clinical Decision Making Moderate (min/mod modifications) Complexity Level of Evaluation Moderate Prognosis Good Discharge Recommendation OT Recommendation Swing bed unit Plan OT Treatment/Intervention Self-care training;Therapeutic exercises;Therapeutic activities;Safety;Functional activity;Continued evaluation;Patient/family training OT Frequency 5 times/week OT - Next Appointment 12/21/22 If this is the last treatment note, it will serve as the discharge summary Yes End of Session End of Session Safety Chair alarm set/activated;Call light within reach;Nursing aware of session;Transfer status education Assessment: Trisha Lawrence is a 72-year-old female who presented with fall. [employer] Pt was independently completing all ADLs and instrumental ADLs. Pt currently with decreased activity tolerance, balance, safety awareness and strength limiting independence with ADLs and functional transfers. Pt would benefit fromskilled OT services to increase safety, strength, activity tolerance, and independence with ADLs and functional transfers. The below POC initiated 12/21/22 to be followed until 12/31/22 at that time POC to be re-assessed and modified if needed. Pt will complete dressing with Independent sitting EOB or in chair to increase safety and independence with ADLs. Pt will complete all grooming and self-feeding with Independent to increased safety and independence with ADLs. Pt will complete ADLs at sink with Independent to increase independence with ADLs. Pt will complete toileting hygiene and clothing management with Independent to increase safety and independence with ADLs. Pt to complete bathing with Independent seated in chair/EOB to increase independence with ADLs. Pt will complete bed mobility with Independent with HOB flat to increase safety and independence with functional transfers. Pt will complete transfers all surfaces to/from all surfaces with Modified [place] using wheeled walker to increase functional mobility and transfers. Pt will participate within skilled therapy services for 20-30 minutes with 1-2 rest breaks to increase independence with ADLs and functional transfers. Pt will increase dynamic balance sitting on soft surface to complete ADLs with Independent for 20-30 minutes to increase safety and independence with ADLs and functional transfers. Pt will increase dynamic standing balance standing at sink/dressing completing ADLs with Modified [place] with wheeled walker for 20-30 minutes to increase safety and independence with ADLs and functional transfers. Education: Primary Learners Name: Trisha Lawrence Primary Language of learner: Moldovan Patient educated on precautions exercises transfers ADLs balance bed mobility therapy plan safety. Education was completed one to one verbal this date. Preference of learning new concepts one to one verbal Barriers to education this date were none. Response to education this date verbalized understanding verbalized recall needs follow up needs assistance. * Kapil Sam RN - 12/20/2022 11:08 PM CDT Problem: Pain Goal: Patient's pain/discomfort is manageable Description: Assess and monitor patient's pain using appropriate pain scale. Collaborate with interdisciplinary team and initiate plan and interventions as ordered. Re-assess patient's pain level 30 - 60 minutes after pain management intervention. Outcome: Progressing Problem: Safety Goal: Patient will be injury free during hospitalization Description: Assess and monitor vitals signs, neurological status including level of consciousness and orientation. Assess patient's risk for falls and implement fall prevention plan of care and interventions per hospital policy. Ensure arm band on, uncluttered walking paths in room, adequate room lighting, call light and overbed table within reach, bed in low position, wheels locked, side rails up per policy, and non-skid footwear provided. Outcome: Progressing Problem: Daily Care Goal: Daily care needs are met Description: Assess and monitor ability to perform self care and identify potential discharge needs. Outcome: Progressing Problem: Psychosocial Needs Goal: Demonstrates ability to cope with hospitalization/illness Description: Assess and monitor patients ability to cope with his/her illness. Outcome: Progressing * Kika Pantoja RN - 12/20/2022 5:13 PM CDT 12/20/22 0900 Interdisciplinary Group Conference Team Members Present Physician;Case/Care management Physician present for group conference Dr Zimmerman Barriers to Discharge Barriers No Barrier- Medical Milestone in Process * Toi Zimmerman MD - 12/20/2022 11:36 AM CDT 72-year-old female admitted for GREG on CKD stage IV follows up with nephrology in [place]. Creatinine a year ago 2.75. Creatinine 4.70 on admission and improved to 4.30 with IV fluids. Seems verydry on exam. Continue IV fluids. Imaging without any hydronephrosis. Will consult nephrology. There was some concern regarding confusion/fall on admission. She has history of strokes and some memory loss. Imaging including CT head without any acute findings. Will involve PT/OT. Further plan as per H&P and consult notes. * Kapil Sam RN - 12/20/2022 2:46 AM CDT 0220 received this direct admit pt. Via stretcher, alert and oriented, not in respiratory distress,with body malaise noted, with abdominal bruises from fall. Problem: Safety Goal: Patient will be injury free during hospitalization Description: Assess and monitor vitals signs, neurological status including level of consciousness and orientation. Assess patient's risk for falls and implement fall prevention plan of care and interventions per hospital policy. Ensure arm band on, uncluttered walking paths in room, adequate room lighting, call light and overbed table within reach, bed in low position, wheels locked, side rails up per policy, and non-skid footwear provided. Outcome: Progressing Problem: Daily Care Goal: Daily care needs are met Description: Assess and monitor ability to perform self care and identify potential discharge needs. Outcome: Progressing Problem: Psychosocial Needs Goal: Demonstrates ability to cope with hospitalization/illness Description: Assess and monitor patients ability to cope with his/her illness. Outcome: Progressing documented in this encounter H&P Notes * Christopher Roberts III, MD - 12/20/2022 3:33 AM CDT [facility] Hospitalist History and Physical Date of Admission: 12/20/2022 PCP: JASSON CUEVA MD Chief Complaint: Weakness, fall, confusion HPI: Trisha Lawrence is a 72-year-old female who has a PERSONALLY REVIEWED pertinent Past Family, Past Social, and Past Surgical history, and has a past medical history of Hypertension with hypertensive nephropathy Chronic kidney disease stage III-IV Chronic edema, on furosemide Former smoker COPD? Two strokes in 2019 with some residual right-sided weakness and decreased short- term memory Osteoarthritis with bilateral hip surgeries Nephrolithiasis Patient provides a limited history due to her history of short-term memory loss after her strokes. She states she has been feeling lousy, but is unable to elaborate why. She thinks she has been more forgetful lately. She states she fell at home, she does not know the details of the fall, she does remembers being on the ground and her son finding her. She was unable to get back up, so EMS was called and she was taken to the ED in [place] for further evaluation. ED physician stated patient wassomewhat lethargic and confused. Patient reports chronic low back pain, mostly on the left, and also some right leg pain after the fall. Otherwise she has no complaints. In the ED, she was afebrile, pulse in the 70s to 80s, respiratory 24, blood pressure elevated to 168/77, saturating normally on room air. CBC showed WBC 10.6, hemoglobin 13.4, platelets 229. CMP showed chloride 108, BUN 70, creatinine 4.7, glucose 143. Review records show that creatinine was 2.75 on 12/2021. Magnesium normal at 2.4. Lipase negative. Lactate negative. proBNP elevated at 2488. Troponin negative. ECG showed sinus rhythm, left anterior fascicular block. CT of the head and cervical spine without contrast showed no acute findings in the head and cervical spine. Chronic microvascular change. Multilevel degenerative changes in the cervical spine. CT of the chest, abdomen, and pelvis without contrast showed no acute findings. Cholelithiasis. Small bilateral kidneys with subcentimeter cystic foci demonstrating internal density, overall suboptimally evaluated. Correlation with outpatient renal protocol CT or MRI or renal ultrasound is recommended. There is diverticulosis without diverticulitis. X-ray of the right ankle was negative for acute osseous abnormality. Patient received IV fluids. She was transferred here for further care. Past Medical History: Past medical history has been reviewed, and pertinent medical history is included in the HPI. Patient has a past medical history of CKD (chronic kidney disease) stage 3, GFR 30-59 ml/min ([facility]), COPD (chronic obstructive pulmonary disease) ([facility]/HCC) ([facility]), Depression, Displaced fracture of proximal end of right humerus (11/06/2018), HLD (hyperlipidemia), Hypertension, Ischemic stroke ([facility]/HCC) ([facility]), Neuropathy, and UTI (urinary tract infection). Home Medications: Prior to Admission medications Medication Sig Start Date End Date Taking? Authorizing Provider amLODIPine 5 MG tablet 1 tablet (5 mg total) daily. 12/21/20 Yes [facility] aspirin EC 81 MG tablet Take 1 tablet (81 mg total) by mouth daily. Yes [facility] gabapentin (NEURONTIN) 600 MG tablet Take 1 tablet (600 mg total) by mouth 3 (three) times daily. 01/30/22 Yes Huber Milligan MD metoprolol succinate ER 50 MG 24 hr tablet Take 1 tablet (50 mg total) by mouth daily. 11/08/18 Yes [facility] vitamin D3, cholecalciferol, 5000 UNITS capsule Take 1 capsule (125 mcg total) by mouth daily. Yes [facility] furosemide (LASIX) 20 MG tablet Take 1 tablet (20 mg total) by mouth daily. 11/23/21 [facility] Social History: Social history has been reviewed, and pertinent social history is included in the HPI. Social History Socioeconomic History Marital status: Tobacco Use Smoking status: Former Packs/day: 1.00 Types: Cigarettes Smokeless tobacco: Never Vaping Use Vaping Use: Never used Substance and Sexual Activity Alcohol use: Not Currently Drug use: Yes Types: Marijuana Social Determinants of Health Financial Resource Strain: Low Risk Difficulty of Paying Living Expenses: Not hard at all Food Insecurity: No Food Insecurity Worried About Running Out of Food in the Last Year: Never true Ran Out of Food in the Last Year: Never true Transportation Needs: No Transportation Needs Lack of Transportation (Medical): No Lack of Transportation (Non-Medical): No Physical Activity: Inactive Days of Exercise per Week: 0 days Minutes of Exercise per Session: 0 min Stress: No Stress Concern Present Feeling of Stress : Not at all Social Connections: Socially Isolated Frequency of Communication with Friends and Family: Three times a week Frequency of Social Gatherings with Friends and Family: Three times a week Attends Protestant Services: Never Active Member of Clubs or Organizations: No Attends Club or Organization Meetings: Never Marital Status: Intimate Partner Violence: Not At Risk Fear of Current or Ex-Partner: No Emotionally Abused: No Physically Abused: No Sexually Abused: No Housing Stability: Low Risk Unable to Pay for Housing in the Last Year: No Number of Places Lived in the Last Year: 1 Unstable Housing in the Last Year: No Surgical History: Surgical history has been reviewed, and pertinent surgical history is included in HPI. Past Surgical History: Procedure Laterality Date JOINT REPLACEMENT SHOULDER SURGERY TOTAL HIP ARTHROPLASTY bilateral Family History: Family history has been reviewed and is not pertinent to the history of present illness unless stated above. Family History Problem Relation Name Age of Onset Heart Attack Mother Review of systems: Full review of systems performed, negative apart from above and what is stated in HPI. PHYSICAL EXAM: Filed Vitals: 12/20/2223712/20/22237 BP: (!) 150/67 Pulse: 76 Resp: 19 Temp: 98.1 ??F (36.7 ??C) TempSrc: Oral SpO2: 97% Weight: 84.5 kg (186 lb 4.6 oz) Height: 5' 7 (1.702 m) Physical Exam Vitals reviewed. Constitutional: General: She is not in acute distress. Appearance: Normal appearance. She is not ill-appearing, toxic-appearing or diaphoretic. HENT: Head: Normocephalic and atraumatic. Right Ear: External ear normal. Left Ear: External ear normal. Nose: Nose normal. No congestion or rhinorrhea. Mouth/Throat: Mouth: Mucous membranes are moist. Pharynx: No oropharyngeal exudate or posterior oropharyngeal erythema. Eyes: General: No scleral icterus. Right eye: No discharge. Left eye: No discharge. Extraocular Movements: Extraocular movements intact. Cardiovascular: Rate and Rhythm: Normal rate and regular rhythm. Heart sounds: Normal heart sounds. No murmur heard. No friction rub. No gallop. Pulmonary: Effort: Pulmonary effort is normal. No respiratory distress. Breath sounds: No stridor. Rhonchi present. No wheezing or rales. Comments: Mild scattered coarse breath sounds Chest: Chest wall: No tenderness. Abdominal: General: Abdomen is flat. Bowel sounds are normal. There is no distension. Palpations: Abdomen is soft. There is no mass. Tenderness: There is no abdominal tenderness. There is no right CVA tenderness, left CVA tenderness, guarding or rebound. Hernia: No hernia is present. Musculoskeletal: General: No swelling, tenderness, deformity or signs of injury. Cervical back: Normal range of motion and neck supple. Right lower leg: No edema. Left lower leg: No edema. Comments: Painful range of motion of lower back with sitting up Skin: General: Skin is warm and dry. Coloration: Skin is not jaundiced or pale. Findings: No bruising, erythema, lesion or rash. Neurological: General: No focal deficit present. Mental Status: She is alert and oriented to person, place, and time. Mental status is at baseline. Cranial Nerves: No cranial nerve deficit. Sensory: No sensory deficit. Motor: No weakness. Coordination: Coordination normal. Psychiatric: Mood and Affect: Mood normal. Behavior: Behavior normal. Thought Content: Thought content normal. Judgment: Judgment normal. Recent Labs Lab 12/19/222057 WBC 10.58 RBC 4.42 HGB 13.4 HCT 41.8 MCV 94.6 MCH 30.3 MCHC 32.1* PLT 229 RDW 13.6 MPV 10.1 PERNEU 80.0 PERLYM 8.6 PERMON 10.1 PEREOS 0.5 PERBASO 0.3 NEUC 8.47* LYMC 0.91 MONOC 1.07 EOSC 0.05 BASOC 0.03 , Recent Labs Lab 12/19/222057 NA 143 K 3.7 CL 108* CO2 23.1 AGAP 11.9 BUN 78* CR 4.70* GLU 143* CA 8.9 TP 7.5 ALB 3.6 TBIL 0.6 ALKP 101 AST 14* ALT 16 , No results for input(s): PTT, INR in the last 168 hours., Recent Labs Lab 12/19/222057 TROP 27 , Recent Labs Lab 12/19/222057 LACTICACID 1.8 , No results for input(s): PH, PCO2, PO2, [id number], BICARBWB, BASEDEFICIT, BASEEXCESS in the last 168 hours. and No results for input(s): BNP in the last 168 hours. Labs and imaging performed since admission were personally reviewed by me. Radiology Results (Last 48 hours) 12/19/222214 CT HEAD WO CON Final result Impression: IMPRESSION: 1. No acute findings in the head and cervical spine. 2. Chronic microvascular change. 3. Multilevel degenerative changes in the cervical spine. 4. Additional findings as above. Referred By: Interpreted By: Howard Rodriguez Dr., 12/19/2022 10:24 PM 12/19/[address] CERV SPINE WO CON Final result Impression: IMPRESSION: 1. No acute findings in the head and cervical spine. 2. Chronic microvascular change. 3. Multilevel degenerative changes in the cervical spine. 4. Additional findings as above. Referred By: Interpreted By: Howard Rodriguez Dr., 12/19/2022 10:24 PM 12/19/222214 CT CHEST+ABD+PEL WO CON Final result Impression: IMPRESSION: 1. No acute findings in the chest, abdomen or pelvis. 2. Cholelithiasis. 3. Small bilateral kidneys with subcentimeter cystic foci demonstrating internal density, overall suboptimally evaluated. Correlation with outpatient renal protocol CT or MRI or renal ultrasound is recommended. 4. Additional findings as above. Referred By: Interpreted By: Howard Rodriguez Dr., 12/19/2022 10:35 PM 12/19/22 2111 XR ANKLE RT M3V Final result Impression: IMPRESSION: 1. No acute osseous abnormality. 2. Chronic distal fibular deformity. Referred By: Interpreted By: Howard Rodriguez Dr., 12/19/2022 9:23 PM No results found for this visit on 12/20/22. ~~~~~~~~~~~~~~~~~~~~~~~~~~~~~~~~~~~~~~~~~~~~ Present on Admission: Acute renal failure superimposed on stage 4 chronic kidney disease, unspecified acute renal failuretype (HHS/HCC) ([facility]) ASSESSMENT AND PLAN: Fall, weakness, metabolic encephalopathy, likely related to acute on chronic renal failure stage IV -Patient presents with above symptoms, feeling lousy, forgetfulness, fall at home, weakness -Found to have significantly elevated creatinine above her baseline -Urinalysis pending -Patient has been admitted for similar issues in the past -Patient received IV fluids in the ED, we will continue normal saline at 100 -Hold home diuretics and nephrotoxic medications -Monitor creatinine -Check urine electrolytes -Consider nephrology consult if fails to improve -PT/OT eval Chronic back pain -Continue home medications including narcotics and gabapentin Hypertension -Blood pressure at outside facility was elevated -Continue home antihypertensives for now and monitor COPD -Patient states she has not been formally diagnosed with this but her PCP believes she has COPD -No current shortness of breath or wheezing -No evidence of acute exacerbation -Monitor for now, as needed nebs FEN Normal saline at 100 Monitor and replace electrolytes as necessary General diet Prophylaxis Heparin subcutaneous CODE STATUS: FULL CODE All pertinent labs, imaging, and orders have been personally reviewed by me. documented in this encounter Consult Notes * Adan Horton MD - 12/20/2022 2:43 PM CDT [facility] Nephrology Consult Note Attending Provider: Toi Zimmerman MD PCP: JASSON CUEVA MD Trisha Lawrence is an 72-year-old female. Reason for Admission: Acute renal failure superimposed on stage 4 chronic kidney disease, unspecified acute renal failure type (HHS/HCC) ([facility]) Acute renal failure superimposed on chronic kidney disease ([facility]) Reason for Consult: GREG on CKD HPI: 72-year-old lady with history of chronic kidney disease stage IV, COPD, depression, dyslipidemia, hypertension, ischemic stroke, short memory loss, neuropathy who was admitted on 12/20 due to lethargyand confusion. Patient found to have GREG on CKD. Patient has CKD stage IV, last year creatinine was2.8. On presentation creatinine was found to be 4.7 and BUN 78. I was consulted to manage GREG on CKD. Patient used to follow-up with Dr. Adusumilli, she reports that she transferred care to [facility] at [place], [place], Patient reports no nausea, vomiting, diarrhea, NSAID use. Past Medical History: Diagnosis Date CKD (chronic kidney disease) stage 3, GFR 30-59 ml/min ([facility]) COPD (chronic obstructive pulmonary disease) ([facility]) ([facility]) Depression Displaced fracture of proximal end of right humerus 11/06/2018 HLD (hyperlipidemia) Hypertension Ischemic stroke ([facility]) ([facility]) Neuropathy UTI (urinary tract infection) Allergies: No Known Allergies Social History Tobacco Use Smoking status: Former Packs/day: 1.00 Types: Cigarettes Smokeless tobacco: Never Substance Use Topics Alcohol use: Not Currently Past Surgical History: Procedure Laterality Date JOINT REPLACEMENT SHOULDER SURGERY TOTAL HIP ARTHROPLASTY bilateral Family History Problem Relation Name Age of Onset Heart Attack Mother No current facility-administered medications on file prior to encounter. Current Outpatient Medications on File Prior to Encounter Medication Sig amLODIPine 5 MG tablet 1 tablet (5 mg total) daily. aspirin EC 81 MG tablet Take 1 tablet (81 mg total) by mouth daily. gabapentin (NEURONTIN) 600 MG tablet Take 1 tablet (600 mg total) by mouth 3 (three) times daily. metoprolol succinate ER 50 MG 24 hr tablet Take 1 tablet (50 mg total) by mouth daily. vitamin D3, cholecalciferol, 5000 UNITS capsule Take 1 capsule (125 mcg total) by mouth daily. furosemide (LASIX) 20 MG tablet Take 1 tablet (20 mg total) by mouth daily. There are no discontinued medications. Current Facility-Administered Medications Medication Dose Route Frequency Provider Last Rate Last Admin acetaminophen (TYLENOL) tablet 650 mg 650 mg Oral Q4H PRN Christopher Roberts III, MD amLODIPine (NORVASC) tablet 5 mg 5 mg Oral Daily Toi Zimmerman MD 5 mg at 12/20/22 0920 aspirin EC (ECOTRIN) tablet 81 mg 81 mg Oral Daily Toi Zimmerman MD 81 mg at 12/20/22 0920 gabapentin (NEURONTIN) capsule 100 mg 100 mg Oral TID Toi Zimmerman MD 100 mg at 12/20/22 0920 heparin (porcine) injection 5,000 Units 5,000 Units Subcutaneous 2 times per day Christopher Roberts III, MD 5,000 Units at 12/20/22 0920 HYDROcodone-acetaminophen (NORCO) 5-325 MG tablet 1 tablet 1 tablet Oral Q4H PRN Christopher Roberts III, MD metoprolol succinate ER (TOPROL-XL) 24 hr tablet 50 mg 50 mg Oral Daily Toi Zimmerman MD 50 mg at 12/20/22 0920 naLOXone (NARCAN) injection 0.4 mg 0.4 mg Intravenous PRN Christopher Roberts III, MD normal saline 0.9 % flush 3-10 mL 3-10 mL Intravenous Q8H Christopher Roberts III, MD 10 mL at 12/20/22 0307 normal saline 0.9 % flush 3-10 mL 3-10 mL Intravenous PRN Christopher Roberts III, MD ondansetron (ZOFRAN) injection 4 mg 4 mg Intravenous Q8H PRN Christopher Roberts III, MD polyethylene glycol (GLYCOLAX) packet 17 g 17 g Oral Daily PRN Christopher Roberts III, MD sodium chloride 0.9% infusion Intravenous Continuous Christopher Roberts III, MD 100 mL/hr at 305 New Bag at 12/20/22 0305 Review of Systems: 10 points review of system are negative Vitals: Blood pressure (!) 141/74, pulse 74, temperature 98.1 ??F (36.7 ??C), temperature source Oral, resp. rate 20, height 5' 7 (1.702 m), weight 84.5 kg (186 lb 4.6 oz), SpO2 94 %. Last 3 Recorded Weights 12/20/22 0238 Weight: 84.5 kg (186 lb 4.6 oz) Intake/Output Summary (Last 24 hours) at 12/20/2022 1443 Last data filed at 12/20/2022 1400 Gross per 24 hour Intake 300 ml Output -- Net 300 ml Physical Exam: -GENERAL: No acute distress, breathing comfortably on room air. -EYES: Extraocular movements intact -ENT: Neck supple, Septum is midline. -LUNG: Clear to auscultation bilaterally, No wheezes, No crackles -CVS: Regular rate rhythm, S1 and S2 normal, No murmurs, -ABDOMEN: Soft, nondistended, Nontender, Bowel sounds observed -EXT: no lower Ext edema. -NEURO: Alert, awake, oriented x3, No gross neuro deficit -SKIN: Skin color, texture, turgor normal. No rashes or lesions LABs Recent Labs Lab 12/19/22205712/20/22 0509 NA 143 144 K 3.7 3.5 CL 108* 119* CO2 23.1 17.6* AGAP 11.9 7.4 BUN 78* 66* CR 4.70* 4.30* GLU 143* 114* CA 8.9 8.5 MAGNESIUM 2.4 -- Recent Labs Lab 12/19/22205712/20/22 0509 WBC 10.58 8.78 RBC 4.42 4.09* HGB 13.4 12.4 HCT 41.8 38.9 MCV 94.6 95.1 MCH 30.3 30.3 MCHC 32.1* 31.9* PLT 229 212 RDW 13.6 13.6 MPV 10.1 11.0* Assessment/Plan: 72-year-old lady with history of chronic kidney disease stage IV, COPD, depression, dyslipidemia, hypertension, ischemic stroke, short memory loss, neuropathy who was admitted on 12/20 due to lethargyand confusion. Patient found to have GREG on CKD. Patient reports no nausea, vomiting, diarrhea, NSAID use. 1. GREG on CKD stage IV -Patient has CKD stage IV ; Patient used to follow-up with Dr. Fung, she reports that she transferred care to nephrology group at [place], [place]. -Last year creatinine was 2.8. Patient's son reports that her autos disassembler has discussed dialysis with them. -On presentation creatinine was found to be 4.7 and BUN 78. -CT abdomen:small bilateral kidneys with subcentimeter cystic foci demonstrating internal density. No hydronephrosis. -Patient appears dry on examination, started normal saline at 100 mill per hour -Ordering urinalysis -No indication for dialysis -Avoid nephrotoxins, avoid hypotension 2.HTN -BP stable. On amlodipine and metoprolol 3.Anemia of chronic disease Hemoglobin 12.5. No indication for IESHA 4.FEN Bicarb 17, starting sodium bicarb 5.Renal osteodystrophy Calcium 8.5 Ordering phosphorus, PTH, vitamin D Thank you for allowing me to participate in the care of this patient. We will continue to follow this patient with you. Please contact us with further questions. ADAN HORTON MD 12/20/2022 documented in this encounter Nursing Notes * Nancy Han RN - 01/06/2023 9:21 AM CDT Personal Lines Advisor called [facility] and give report. AVS faxed to [phone] at this time. * Olimpia Canchola RN - 12/27/2022 8:02 PM CDT - 19:20pm- Initial rounds done. Awake on bed. - alert and oriented x 2-3 - not in distress, saturating well on room air - up with 1-2, can pivot, with right leg weak from stroke residual in the past - no complaints/discomfort - maintained fall/bleeding precautions - instructed to call nurse if needs assistance - informed RT Lars regarding due nebulization - provided call alston and personal belongings within reach - 02:15am- seen patient, asleep - 04:15am- needs attended - morning care done. Diaper changed - keep comfortable - 07:00am - Endorsed to next shift, stable. * Olimpia Canchola RN - 12/26/2022 10:43 PM CDT - 19:30pm- Initial rounds done. Awake on bed. - alert and oriented x 2-3 - not in distress, saturating well on room air - up with 1-2, can pivot, with right leg weak from stroke residual in the past - no complaints/discomfort - maintained fall/bleeding precautions - instructed to call nurse if needs assistance - provided call alston and personal belongings within reach - 02:15am- seen patient, asleep - 04:15am- needs attended - morning care done. Diaper changed - keep comfortable - 07:00am- Endorsed to next shift, stable. * Cristal Rollins RN - 12/25/2022 7:34 PM CDT Wheezing and chest discomfort. Notified Francisco Soto MD verbal orders were given Lasix Cxray Duoneb Cristal Rollins RN documented in this encounter OR Notes * Brief Op Note - Timur Dickey MD - 12/29/2022 2:13 PM CDT PROCEDURE: 1. Central venogram 2. Ultrasound and fluoroscopically guided placement of right internal jugular tunneled dialysis catheter INDICATION: Acute on chronic renal insufficiency. TECHNIQUE: Following informed consent and universal protocol to verify correct patient, site, and procedure to be performed, the patient was placed in the supine position on the fluoroscopic examination table. Maximum sterile barrier techniques and sterile ultrasound technique were utilized throughout the procedure. The right internal jugular vein was identified by ultrasound and noted to be patent and compressible. Local anesthesia was achieved using buffered 1% lidocaine, and a small dermatotomy was created. Under continuous ultrasound guidance utilizing micropuncture technique, the right internal jugular vein was accessed, and an image was stored in PACS. Initially, a 0.018 wire failed to pass below the level of the clavicle. Contrast was injected via the micropuncture needle, showing a lateral course of the internal jugular vein at its junction with the subclavian. This may represent anatomic variant, versus possible short segment occlusion of the inferior aspect of the internal jugular with reconstitution via an external jugular branch. While there was some curvature related tothis anatomy, a 0.018 wire and micropuncture introducer were utilized to navigate this curve allowing wire placement to the right heart. 0.035 guidewire was then placed through the micropuncture cannula to the IVC. This was left in place while the catheter tunnel site was created. Additional local anesthesia at the right chest wall was provided using buffered 1% lidocaine, and an additional dermatotomy was created. A 23 cm tip-to-cuff dialysis catheter was pulled through the subcutaneous tunnelto the venotomy site. The tract was dilated to 14 Faroese over the 0.035 wire, and a peel-away sheath was placed. The tip of the catheter was then placed through the sheath, which was subsequently removed. The catheter tip was positioned in the high right atrium. Both lumens were noted to flush and aspirate easily. The venotomy site was closed with a single interrupted absorbable subcutaneous suture and Dermabond. Tissue at the tunnel exit site was approximated with a modified pursestring of 2-0Ethilon suture, which was also used to secure the catheter. Sterile dressings were applied. The patient tolerated the procedure well. Fluoroscopy time:1.9minutes,8.4mGy (Ka.r) EBL: Less than 20 mL Conscious sedation: Administered and monitored by a qualified interventional radiology nurse under supervision of the interventional radiologist. There was continuous monitoring of vital signs including pulse oximetry, end-tidal CO2, and EKG. Total imgc-wr-[id number]/intraservice sedation time: 11 minutes. Complications: None apparent IMPRESSION: Uneventful ultrasound fluoroscopically guided placement of right internal jugular tunneled dialysiscatheter. Catheter is ready for immediate use. * Pre-Sedation Assessment - Timur Dickey MD - 12/29/2022 10:37 AM CDT Sedation Pre-Evaluation Reviewed the following in the patient's chart: Patient summary Anesthesia history Medications Labs Images/Studies Patient has no history sedation complication Past sedation history was obtained from patient. Written consent was given by the patient for today's procedure. Discussed the following risks for today's procedure: prolonged sedation necessitating reversal and respiratory compromise necessitatingventilatory assistance and intubation. Pre-Sedation Assessment Patient has an ASA score of: 2. The plan is to use moderate (conscious sedation) sedation for today's procedure. Physical Exam: Airway Status: Mallampati: II Cardiovascular: Rhythm: regular Rate: normal Pulmonary: Rhonchi are present Other findings: Informed Consent Discussion: Potential benefits, risks, and side effects of the patient's procedure/surgery; the likelihood of the patient achieving his or her goals; and any potential problems that might occur during recuperation were discussed with the patient/family/personal commercial representative. Reasonable alternatives to the patient's proposed procedure/surgery including benefits, risks, and side effects related to the alternatives and the risks related to not receiving the proposed care were also discussed with the patient/family/personal commercial representative. Questions were answered and the patient/family/personal commercial representative verbalized understanding and desires to proceed. documented in this encounter Plan of Treatment [...] Procedure Name Priority Date/Time Associated Diagnosis Comments PHOSPHORUS, INORGANIC PHOSPHATE Routine 01/06/2023 4:44 AM CDT MAGNESIUM Routine 01/06/2023 4:44 AM CDT RENAL FUNCTION PANEL Routine 01/05/2023 4:17 AM CDT MAGNESIUM Routine 01/05/2023 4:17 AM CDT RENAL FUNCTION PANEL Routine 01/04/2023 6:24 AM CDT PHOSPHORUS, INORGANIC PHOSPHATE Routine 01/04/2023 6:24 AM CDT MAGNESIUM Routine 01/04/2023 6:24 AM CDT RENAL FUNCTION PANEL Routine 01/03/2023 4:17 AM CDT CBC W/DIFF AUTOMATED Routine 01/03/2023 4:17 AM CDT MAGNESIUM Routine 01/03/2023 4:17 AM CDT COMPREHENSIVE METABOLIC PANEL Routine 01/02/2023 4:00 AM CDT CBC W/DIFF AUTOMATED Routine 01/02/2023 4:00 AM CDT PHOSPHORUS, INORGANIC PHOSPHATE Routine 01/02/2023 4:00 AM CDT MAGNESIUM Routine 01/02/2023 4:00 AM CDT COMPREHENSIVE METABOLIC PANEL Routine 01/01/2023 4:22 AM CDT CBC W/DIFF AUTOMATED Routine 01/01/2023 4:22 AM CDT PHOSPHORUS, INORGANIC PHOSPHATE Routine 01/01/2023 4:22 AM CDT MAGNESIUM Routine 01/01/2023 4:22 AM CDT COMPREHENSIVE METABOLIC PANEL Routine 12/31/2022 10:11 AM CDT CBC W/DIFF AUTOMATED Routine 12/31/2022 10:11 AM CDT PHOSPHORUS, INORGANIC PHOSPHATE Routine 12/31/2022 10:11 AM CDT MAGNESIUM Routine 12/31/2022 10:11 AM CDT URINE BACTERIA CULTURE Nurse Collected Priority 12/30/2022 2:49 PM CDT COMPREHENSIVE METABOLIC PANEL Routine 12/30/2022 3:42 AM CDT CBC W/DIFF AUTOMATED Routine 12/30/2022 3:42 AM CDT PHOSPHORUS, INORGANIC PHOSPHATE Routine 12/30/2022 3:42 AM CDT MAGNESIUM Routine 12/30/2022 3:42 AM CDT HEPATITIS B CORE ANTIBODY Routine 12/29/2022 5:38 PM CDT HEPATITIS B CORE AB IGM Routine 12/29/2022 5:38 PM CDT HEPATITIS B SURFACE AG, EIA Routine 12/29/2022 11:19 AM CDT HEPATITIS B SURFACE ANTIBODY Routine 12/29/2022 11:19 AM CDT IR TUNNELED CENT CATH INSERT Today 12/29/2022 11:08 AM CDT PROTHROMBIN TIME, VENOUS Routine 12/29/2022 5:26 AM CDT COMPREHENSIVE METABOLIC PANEL Routine 12/29/2022 5:26 AM CDT CBC W/DIFF AUTOMATED Routine 12/29/2022 5:26 AM CDT PHOSPHORUS, INORGANIC PHOSPHATE Routine 12/29/2022 5:26 AM CDT MAGNESIUM Routine 12/29/2022 5:26 AM CDT SODIUM URINE RANDOM Nurse Collected Priority 12/28/2022 8:05 PM CDT UREA NITROGEN URINE RANDOM Nurse Collected Priority 12/28/2022 8:05 PM CDT CREATININE URINE RANDOM Nurse Collected Priority 12/28/2022 8:05 PM CDT HC URINALYSIS AUTO W/MICRO Nurse Collected Priority 12/28/2022 8:05 PM CDT COMPREHENSIVE METABOLIC PANEL Routine 12/28/2022 6:15 AM CDT CBC W/DIFF AUTOMATED Routine 12/28/2022 6:15 AM CDT PHOSPHORUS, INORGANIC PHOSPHATE Routine 12/28/2022 6:15 AM CDT MAGNESIUM Routine 12/28/2022 6:15 AM CDT US [employer] Today 8:44 AM CDT COMPREHENSIVE METABOLIC PANEL Routine 12/27/2022 4:14 AM CDT CBC W/DIFF AUTOMATED Routine 12/27/2022 4:14 AM CDT PHOSPHORUS, INORGANIC PHOSPHATE Routine 12/27/2022 4:14 AM CDT MAGNESIUM Routine 12/27/2022 4:14 AM CDT XR SHOULDER RT 3V Today 12/26/2022 8:2 2 PM CDT USE ECHOCARDIOGRAM Today 12/26/2022 1: 48 PM CDT RENAL FUNCTION PANEL Routine 12/26/2022 3:56 AM CDT XR CHEST PORTABLE Today 12/25/2022 1:1 9 PM CDT BMP WITHOUT GLUCOSE Routine 12/24/2022 3 :43 AM CDT RESPIRATORY PCR PANEL 2 Nurse Collected Priority 12/23/2022 10:00 AM CDT BMP WITHOUT GLUCOSE STAT 12/23/2022 9 :21 AM CDT CBC W/DIFF AUTOMATED Routine 12/22/2022 9:52 AM CDT BASIC METABOLIC PANEL Routine 12/22/2022 4:44 AM CDT PTH - INTACT Routine 12/21/2022 4:54 AM CDT BASIC METABOLIC PANEL Routine 12/21/2022 4:54 AM CDT PHOSPHORUS, INORGANIC PHOSPHATE Routine 12/21/2022 4:54 AM CDT VITAMIN D, 25 OH Routine 12/21/2022 4:54 AM CDT CBC W/DIFF AUTOMATED Routine 12/21/2022 4:47 AM CDT BASIC METABOLIC PANEL Routine 12/20/2022 5:09 AM CDT CBC W/DIFF AUTOMATED Routine 12/20/2022 5:09 AM CDT THYROID STIM HORMONE TSH Routine 12/20/2022 5:09 AM CDT documented in this encounter Results * (ABNORMAL) PHOSPHORUS, INORGANIC PHOSPHATE (01/06/2023 4:44 AM CDT) PHOSPHORUS 6.7(H) 2.5 - 4.9 MG/DL 01/06/2023 6:00 AM CDT [facility] 01/06/2023 4:44 AM CDT Fidelina Owens MD LABORATORY Final Res ult Performing Organization Address City/[facility]/ZIP Co de Phone Number [facility] [address] [place] [address], [phone] * MAGNESIUM (01/06/2023 4:44 AM CDT) MAGNESIUM 2.4 1.6 - 2.6 MG/DL 01/06/2023 6:00 AM CDT [facility] 01/06/2023 4:44 AM CDT Fidelina Owens MD LABORATORY Final Res ult [facility] [address] [place] [address], [place] [phone] * MAGNESIUM (01/05/2023 4:17 AM CDT) MAGNESIUM 2.5 1.6 - 2.6 MG/DL 01/05/2023 5:08 AM CDT [facility] 01/05/2023 4:17 AM CDT Fidelina Owens MD LABORATORY Final Res ult [facility] [address] [place] [address], [phone] * (ABNORMAL) RENAL FUNCTION PANEL (01/05/2023 4:17 AM CDT) Pathologist [facility] SODIUM S/P/B 135(L) 136 - 145 MMOL/L 01/05/2023 5:08 AM CDT [facility] POTASSIUM S/P/B 4.1 3.5 - 5.1 MMOL/L 01/05/2023 5:08 AM CDT [facility] CHLORIDE S/P/B 97(L) 98 - 107 MMOL/L 01/05/2023 5:08 AM CDT [facility] CO2 29.6 21.0 - 32.0 MMOL/L 01/05/2023 5:08 AM CDT [facility] GLUCOSE 115(H) 74 - 106 MG/DL 01/05/2023 5:08 AM CDT [facility] BUN 28(H) 7 - 18 MG/DL 01/05/2023 5:08 AM CDT [facility] CREATININE S/P/B 4.07(H) 0.55 - 1.02 MG/DL 01/05/2023 5:08 AM CDT [facility] CALCIUM S/P/B 9.0 8.5 - 10.1 MG/DL 01/05/2023 5:08 AM CDT [facility] ALBUMIN S/P/B 3.1(L) 3.4 - 5.0 G/DL 01/05/2023 5:08 AM CDT [facility] PHOSPHORUS 5.1(H) 2.5 - 4.9 MG/DL 01/05/2023 5:08 AM CDT [facility] ANION GAP 8.4 5.0 - 15.0 MMOL/L 01/05/2023 5:08 AM CDT [facility] OSMOLALITY (CALC) 286 MOSM/KG 023 5:08 AM CDT [facility] Comment:REFERENCE RANGE NOT ESTABLISHED GFR ESTIMATE 11(L) >90 ML/MIN/1. 73 M2 01/05/2023 5:08 AM CDT [facility] GFR NOTES GFR REFERENCE S: 01/05/2023 5:08 AM CDT [facility] Comment: THE ESTIMATED GFR IS [...] ml/min/1.73 m2 G5,KIDNEY FAILURE: <15 ml/min/1.73 m2 01/05/2023 4:17 AM CDT Mandi Salmon MD LABORATORY Final Result [facility] [address] [place] [address], [id number] * (ABNORMAL) RENAL FUNCTION PANEL (01/04/2023 6:24 AM CDT) SODIUM S/P/B 138 136 - 145 MMOL/L 01/04/2023 1:55 PM CDT [facility] POTASSIUM S/P/B 3.7 3.5 - 5.1 MMOL/L 01/04/2023 1:55 PM CDT [facility] CHLORIDE S/P/B 106 98 - 107 MMOL/L 01/04/2023 1:55 PM CDT [facility] CO2 25.6 21.0 - 32.0 MMOL/L 01/04/2023 1:55 PM CDT [facility] GLUCOSE 111(H) 74 - 106 MG/DL 01/04/2023 1:55 PM CDT [facility] BUN 39(H) 7 - 18 MG/DL 01/04/2023 1:55 PM CDT [facility] CREATININE S/P/B 4.37(H) 0.55 - 1.02 MG/DL 01/04/2023 1:55 PM CDT [facility] CALCIUM S/P/B 8.7 8.5 - 10.1 MG/DL 01/04/2023 1:55 PM CDT [facility] ALBUMIN S/P/B 2.9(L) 3.4 - 5.0 G/DL 01/04/2023 1:55 PM CDT [facility] PHOSPHORUS 5.8(H) 2.5 - 4.9 MG/DL 01/04/2023 1:55 PM CDT [facility] ANION GAP 6.4 5.0 - 15.0 MMOL/L 01/04/2023 1:55 PM CDT [facility] OSMOLALITY (CALC) 296 MOSM/KG 023 1:55 PM T [facility] Comment:REFERENCE RANGE NOT ESTABLISHED GFR ESTIMATE 10(L) >90 ML/MIN/1. 73 M2 01/04/2023 1:55 PM CDT [facility] GFR NOTES GFR REFERENCE S: 01/04/2023 1:55 PM T [facility] Comment: THE ESTIMATED GFR IS [...] ml/min/1.73 m2 G5,KIDNEY FAILURE: <15 ml/min/1.73 m2 01/04/2023 6:24 AM CDT Mandi Salmon MD LABORATORY Final Result Performing Organization Address [facility] Co de Phone Number [facility] [address] [place] [address], [id number] * (ABNORMAL) PHOSPHORUS, INORGANIC PHOSPHATE (01/04/2023 6:24 AM CDT) PHOSPHORUS 5.9(H) 2.5 - 4.9 MG/DL 01/04/2023 7:04 AM CDT [facility] 01/04/2023 6:24 AM CDT Fidelina Owens MD LABORATORY Final Res ult Performing Organization Address [facility] Co de Phone Number [facility] [address] [place] [address], [place] [phone] * MAGNESIUM (01/04/2023 6:24 AM CDT) MAGNESIUM 2.4 1.6 - 2.6 MG/DL 01/04/2023 7:04 AM CDT [facility] 01/04/2023 6:24 AM CDT Fidelina Owens MD LABORATORY Final Res ult Performing Organization Address City/[facility]/ZIP Co de Phone Number [facility] [address] [place] [address], [place] [phone] * MAGNESIUM (01/03/2023 4:17 AM CDT) Pathologist [facility] MAGNESIUM 2.4 1.6 - 2.6 MG/DL 01/03/2023 5:09 AM CDT [facility] 01/03/2023 4:17 AM CDT us Fidelina Owens MD LABORATORY Final Res ult [facility] [address] [place] [address], [place] [phone] * (ABNORMAL) RENAL FUNCTION PANEL (01/03/2023 4:17 AM CDT) Pathologist [facility] SODIUM S/P/B 137 136 - 145 MMOL/L 01/03/2023 5:09 AM CDT [facility] POTASSIUM S/P/B 3.5 3.5 - 5.1 MMOL/L 01/03/2023 5:09 AM CDT [facility] CHLORIDE S/P/B 102 98 - 107 MMOL/L 01/03/2023 5:09 AM CDT [facility] CO2 27.7 21.0 - 32.0 MMOL/L 01/03/2023 5:09 AM CDT [facility] GLUCOSE 105 74 - 106 MG/DL 01/03/2023 5:09 AM CDT [facility] BUN 25(H) 7 - 18 MG/DL 01/03/2023 5:09 AM CDT [facility] CREATININE S/P/B 3.26(H) 0.55 - 1.02 MG/DL 01/03/2023 5:09 AM CDT [facility] CALCIUM S/P/B 9.0 8.5 - 10.1 MG/DL 01/03/2023 5:09 AM CDT [facility] ALBUMIN S/P/B 3.0(L) 3.4 - 5.0 G/DL 01/03/2023 5:09 AM CDT [facility] PHOSPHORUS 5.0(H) 2.5 - 4.9 MG/DL 01/03/2023 5:09 AM CDT [facility] ANION GAP 7.3 5.0 - 15.0 MMOL/L 01/03/2023 5:09 AM CDT [facility] OSMOLALITY (CALC) 289 MOSM/KG 023 5:09 AM CDT [facility] Comment:REFERENCE RANGE NOT ESTABLISHED GFR ESTIMATE 15(L) >90 ML/MIN/1. 73 M2 01/03/2023 5:09 AM CDT [facility] GFR NOTES GFR REFERENCE S: 01/03/2023 5:09 AM CDT [facility] Comment: THE ESTIMATED GFR IS [...] ml/min/1.73 m2 G5,KIDNEY FAILURE: <15 ml/min/1.73 m2 01/03/2023 4:17 AM CDT us Danya Connell PA-C LABORATORY Final Resu lt [facility] [address] [place] [address], [id number] * (ABNORMAL) CBC W/DIFF AUTOMATED (01/03/2023 4:17 AM CDT) WBC 8.19 4.00 - 10.80 x10'3/uL 01/03/2023 4:45 AM CDT [facility] RBC 3.91(L) 4.10 - 5.40 x10'6/uL 01/03/2023 4:45 AM CDT [facility] HGB 11.8(L) 12.0 - 16.0 G/DL 01/03/2023 4:45 AM CDT [facility] HCT 37.2 36.0 - 47.0 % 01/03/2023 4:45 AM CDT [facility] MCV 95.1 78.0 - 100.0 FL 01/03/2023 4:45 AM CDT [facility] MCH 30.2 27.0 - 31.0 PG 01/03/2023 4:45 AM CDT [facility] MCHC 31.7(L) 33.0 - 36.0 G/DL 01/03/2023 4:45 AM CDT [facility] RDW 13.6 11.5 - 14.5 % 01/03/2023 4:45 AM CDT [facility] PLT 204 150 - 350 x10'3/uL 01/03/2023 4:45 AM CDT [facility] MPV 10.5(H) 7.4 - 10.4 FL 01/03/2023 4:45 AM CDT [facility] ABS. NEUTROPHILS 5.45 1.60 - 8.30 x10'3/uL 01/03/2023 4:45 AM CDT [facility] ABS. LYMPHOCYTES 1.50 0.80 - 4.70 x10'3/uL 01/03/2023 4:45 AM CDT [facility] ABS. MONOCYTES 0.73 0.00 - 1.50 x10'3/uL 01/03/2023 4:45 AM CDT [facility] ABS. EOSINOPHILS 0.41(H) 0.00 - 0.40 x10'3/uL 01/03/2023 4:45 AM CDT [facility] ABS. BASOPHILS 0.07 0.00 - 0.20 x10'3/uL 01/03/2023 4:45 AM CDT [facility] ABS. IMMATURE GRANULOCYTES 0.03 0.00 - 0.03 x10'3/uL 01/03/2023 4:45 AM CDT [facility] ABS. NUCLEATED RBC'S 0.00 0.0 x10'3/uL 01/03/2023 4:45 AM CDT [facility] 01/03/2023 4:17 AM CDT Danya Connell PA-C LABORATORY Final Resu lt Performing Organization Address [facility] Co de Phone Number [facility] [address] [place] [address], [phone] * (ABNORMAL) PHOSPHORUS, INORGANIC PHOSPHATE (01/02/2023 4:00 AM CDT) PHOSPHORUS 5.9(H) 2.5 - 4.9 MG/DL 01/02/2023 5:07 AM CDT [facility] 01/02/2023 4:00 AM CDT Fidelina Owens MD LABORATORY Final Res ult Performing Organization Address City/[facility]/ZIP Co de Phone Number [facility] [address] [place] [address], [phone] * MAGNESIUM (01/02/2023 4:00 AM CDT) MAGNESIUM 2.2 1.6 - 2.6 MG/DL 01/02/2023 5:07 AM CDT [facility] 01/02/2023 4:00 AM CDT us Fidelina Owens MD LABORATORY Final Res ult [facility] [address] [place] [address], [phone] * (ABNORMAL) COMPREHENSIVE METABOLIC PANEL (01/02/2023 4:00 AM CDT) SODIUM S/P/B 139 136 - 145 MMOL/L 01/02/2023 5:07 AM CDT [facility] POTASSIUM S/P/B 4.2 3.5 - 5.1 MMOL/L 01/02/2023 5:07 AM CDT [facility] CHLORIDE S/P/B 108(H) 98 - 107 MMOL/L 01/02/2023 5:07 AM CDT [facility] CO2 22.7 21.0 - 32.0 MMOL/L 01/02/2023 5:07 AM CDT [facility] GLUCOSE 105 74 - 106 MG/DL 01/02/2023 5:07 AM CDT [facility] BUN 38(H) 7 - 18 MG/DL 01/02/2023 5:07 AM CDT [facility] CREATININE S/P/B 4.04(H) 0.55 - 1.02 MG/DL 01/02/2023 5:07 AM CDT [facility] CALCIUM S/P/B 8.8 8.5 - 10.1 MG/DL 01/02/2023 5:07 AM CDT [facility] BILIRUBIN TOTAL S/P/B 0.5 0.2 - 1.0 MG/DL 01/02/2023 5:07 AM CDT [facility] ALKALINE PHOSPHATASE S/P/B 91 55 - 142 U/L 01/02/2023 5:07 AM CDT [facility] AST 19 15 - 37 U/L 01/02/2023 5:07 AM CDT [facility] ALT 28 13 - 56 U/L 01/02/2023 5:07 AM CDT [facility] TOTAL PROTEIN S/P/B 6.3(L) 6.4 - 8.2 G/DL 01/02/2023 5:07 AM CDT [facility] ALBUMIN S/P/B 2.9(L) 3.4 - 5.0 G/DL 01/02/2023 5:07 AM CDT [facility] ANION GAP 8.3 5.0 - 15.0 MMOL/L 01/02/2023 5:07 AM CDT [facility] OSMOLALITY (CALC) 297 MOSM/KG 023 5:07 AM CDT [facility] Comment:REFERENCE RANGE NOT ESTABLISHED GFR ESTIMATE 11(L) >90 ML/MIN/1. 73 M2 01/02/2023 5:07 AM CDT [facility] GFR NOTES GFR REFERENCE S: 01/02/2023 5:07 AM CDT [facility] Comment: THE ESTIMATED GFR IS [...] ml/min/1.73 m2 G5,KIDNEY FAILURE: <15 ml/min/1.73 m2 01/02/2023 4:00 AM CDT us Fidelina Owens MD LABORATORY Final Res ult [facility] [address] [place] [address], [id number] * (ABNORMAL) CBC W/DIFF AUTOMATED (01/02/2023 4:00 AM CDT) [facility] WBC 9.83 4.00 - 10.80 x10'3/uL 01/02/2023 4:35 AM CDT [facility] RBC 3.90(L) 4.10 - 5.40 x10'6/uL 01/02/2023 4:35 AM CDT [facility] HGB 11.7(L) 12.0 - 16.0 G/DL 01/02/2023 4:35 AM CDT [facility] HCT 36.9 36.0 - 47.0 % 01/02/2023 4:35 AM CDT [facility] MCV 94.6 78.0 - 100.0 FL 01/02/2023 4:35 AM CDT [facility] MCH 30.0 27.0 - 31.0 PG 01/02/2023 4:35 AM CDT [facility] MCHC 31.7(L) 33.0 - 36.0 G/DL 01/02/2023 4:35 AM CDT [facility] RDW 13.6 11.5 - 14.5 % 01/02/2023 4:35 AM CDT [facility] PLT 233 150 - 350 x10'3/uL 01/02/2023 4:35 AM CDT [facility] MPV 10.5(H) 7.4 - 10.4 FL 01/02/2023 4:35 AM CDT [facility] ABS. NEUTROPHILS 7.19 1.60 - 8.30 x10'3/uL 01/02/2023 4:35 AM CDT [facility] ABS. LYMPHOCYTES 1.34 0.80 - 4.70 x10'3/uL 01/02/2023 4:35 AM CDT [facility] ABS. MONOCYTES 0.69 0.00 - 1.50 x10'3/uL 01/02/2023 4:35 AM CDT [facility] ABS. EOSINOPHILS 0.52(H) 0.00 - 0.40 x10'3/uL 01/02/2023 4:35 AM CDT [facility] ABS. BASOPHILS 0.06 0.00 - 0.20 x10'3/uL 01/02/2023 4:35 AM CDT [facility] [facility]. IMMATURE GRANULOCYTES 0.03 0.00 - 0.03 x10'3/uL 01/02/2023 4:35 AM CDT [facility] ABS. NUCLEATED RBC'S 0.00 0.0 x10'3/uL 01/02/2023 4:35 AM CDT [facility] 01/02/2023 4:00 AM CDT Fidelina Owens MD LABORATORY Final Res ult Performing Organization Address [facility] Co de Phone Number [facility] [address] [id number], [id number] * (ABNORMAL) PHOSPHORUS, INORGANIC PHOSPHATE (01/01/2023 4:22 AM CDT) PHOSPHORUS 5.5(H) 2.5 - 4.9 MG/DL 01/01/2023 5:09 AM CDT [facility] 01/01/2023 4:22 AM CDT Fidelina Owens MD LABORATORY Final Res ult Performing Organization Address City/[facility]/ZIP Co de Phone Number [facility] [address] [place] [address], [id number] * MAGNESIUM (01/01/2023 4:22 AM CDT) MAGNESIUM 2.2 1.6 - 2.6 MG/DL 01/01/2023 5:09 AM CDT [facility] Comment:RESULT QUESTIONABLE DUE TO HEMOLYSIS, RECOMMEND RECOLLECTION. 01/01/2023 4:22 AM CDT us Fidelina Owens MD LABORATORY Final Res ult [facility] [address] [place] [address], [id number] * (ABNORMAL) COMPREHENSIVE METABOLIC PANEL (01/01/2023 4:22 AM CDT) SODIUM S/P/B 139 136 - 145 MMOL/L 01/01/2023 5:09 AM CDT [facility] POTASSIUM S/P/B 4.2 3.5 - 5.1 MMOL/L 01/01/2023 5:09 AM CDT [facility] Comment:MILD HEMOLYSIS, RESU LT MAY BE AFFECTED. CHLORIDE S/P/B 108(H) 98 - 107 MMOL/L 01/01/2023 5:09 AM CDT [facility] CO2 23.9 21.0 - 32.0 MMOL/L 01/01/2023 5:09 AM CDT [facility] GLUCOSE 103 74 - 106 MG/DL 01/01/2023 5:09 AM CDT [facility] BUN 32(H) 7 - 18 MG/DL 01/01/2023 5:09 AM CDT [facility] CREATININE S/P/B 3.90(H) 0.55 - 1.02 MG/DL 01/01/2023 5:09 AM CDT [facility] CALCIUM S/P/B 8.6 8.5 - 10.1 MG/DL 01/01/2023 5:09 AM CDT [facility] BILIRUBIN TOTAL S/P/B 0.5 0.2 - 1.0 MG/DL 01/01/2023 5:09 AM CDT [facility] ALKALINE PHOSPHATASE S/P/B 89 55 - 142 U/L 01/01/2023 5:09 AM CDT [facility] AST 23 15 - 37 U/L 01/01/2023 5:09 AM CDT [facility] Comment:RESULT QUESTIONABLE DUE TO HEMOLYSIS, CONSIDER RECOLLECTION. ALT 23 13 - 56 U/L 01/01/2023 5:09 AM CDT [facility] TOTAL PROTEIN S/P/B 6.1(L) 6.4 - 8.2 G/DL 01/01/2023 5:09 AM CDT [facility] ALBUMIN S/P/B 2.8(L) 3.4 - 5.0 G/DL 01/01/2023 5:09 AM CDT [facility] ANION GAP 7.1 5.0 - 15.0 MMOL/L 01/01/2023 5:09 AM CDT [facility] OSMOLALITY (CALC) 295 MOSM/KG 023 5:09 AM T [facility] Comment:REFERENCE RANGE NOT ESTABLISHED GFR ESTIMATE 12(L) >90 ML/MIN/1. 73 M2 01/01/2023 5:09 AM CDT [facility] GFR NOTES GFR REFERENCE S: 01/01/2023 5:09 AM T [facility] Comment: THE ESTIMATED GFR IS [...] ml/min/1.73 m2 G5,KIDNEY FAILURE: <15 ml/min/1.73 m2 01/01/2023 4:22 AM CDT us Fidelina Owens MD LABORATORY Final Res ult [facility] [address] [place] [address], [id number] * (ABNORMAL) CBC W/DIFF AUTOMATED (01/01/2023 4:22 AM CDT) [facility] WBC 8.27 4.00 - 10.80 x10'3/uL 01/01/2023 4:39 AM CDT [facility] RBC 3.80(L) 4.10 - 5.40 x10'6/uL 01/01/2023 4:39 AM CDT [facility] HGB 11.5(L) 12.0 - 16.0 G/DL 01/01/2023 4:39 AM CDT [facility] HCT 35.6(L) 36.0 - 47.0 % 01/01/2023 4:39 AM CDT [facility] MCV 93.7 78.0 - 100.0 FL 01/01/2023 4:39 AM CDT [facility] MCH 30.3 27.0 - 31.0 PG 01/01/2023 4:39 AM CDT [facility] MCHC 32.3(L) 33.0 - 36.0 G/DL 01/01/2023 4:39 AM CDT [facility] RDW 13.6 11.5 - 14.5 % 01/01/2023 4:39 AM CDT [facility] PLT 211 150 - 350 x10'3/uL 01/01/2023 4:39 AM CDT [facility] MPV 10.4 7.4 - 10.4 FL 01/01/2023 4:39 AM CDT [facility] ABS. NEUTROPHILS 5.69 1.60 - 8.30 x10'3/uL 01/01/2023 4:39 AM CDT [facility] ABS. LYMPHOCYTES 1.41 0.80 - 4.70 x10'3/uL 01/01/2023 4:39 AM CDT [facility] ABS. MONOCYTES 0.65 0.00 - 1.50 x10'3/uL 01/01/2023 4:39 AM CDT [facility] ABS. EOSINOPHILS 0.44(H) 0.00 - 0.40 x10'3/uL 01/01/2023 4:39 AM CDT [facility] ABS. BASOPHILS 0.06 0.00 - 0.20 x10'3/uL 01/01/2023 4:39 AM CDT [facility] ABS. IMMATURE GRANULOCYTES 0.02 0.00 - 0.03 x10'3/uL 01/01/2023 4:39 AM CDT [facility] ABS. NUCLEATED RBC'S 0.00 0.0 x10'3/uL 01/01/2023 4:39 AM CDT [facility] 01/01/2023 4:22 AM CDT Fidelina Owens MD LABORATORY Final Res ult [facility] [address] [place] [address], [id number] * PHOSPHORUS, INORGANIC PHOSPHATE (12/31/2022 10:11 AM CDT) PHOSPHORUS 4.9 2.5 - 4.9 MG/DL 12/31/2022 11:45 AM CDT [facility] 12/31/2022 10:1 1 AM CDT Fidelina Owens MD LABORATORY Final Res ult [facility] [address] [place] [address], [id number] * MAGNESIUM (12/31/2022 10:11 AM CDT) MAGNESIUM 2.2 1.6 - 2.6 MG/DL 12/31/2022 11:45 AM CDT [facility] Comment:RESULT QUESTIONABLE DUE TO HEMOLYSIS, RECOMMEND RECOLLECTION. 12/31/2022 10:1 1 AM CDT us Fidelina Owens MD LABORATORY Final Res ult [facility] [address] [place] [address], [place] [phone] [id number] * (ABNORMAL) COMPREHENSIVE METABOLIC PANEL (12/31/2022 10:11 AM CDT) Pathologist [facility] SODIUM S/P/B 140 136 - 145 MMOL/L 12/31/2022 11:45 AM CDT [facility] POTASSIUM S/P/B 4.6 3.5 - 5.1 MMOL/L 12/31/2022 11:45 AM CDT [facility] Comment:MILD HEMOLYSIS, RESU LT MAY BE AFFECTED. CHLORIDE S/P/B 104 98 - 107 MMOL/L 12/31/2022 11:45 AM CDT [facility] CO2 26.7 21.0 - 32.0 MMOL/L 12/31/2022 11:45 AM CDT [facility] GLUCOSE 99 74 - 106 MG/DL 12/31/2022 11:45 AM CDT [facility] BUN 23(H) 7 - 18 MG/DL 12/31/2022 11:45 AM CDT [facility] CREATININE S/P/B 3.05(H) 0.55 - 1.02 MG/DL 12/31/2022 11:45 AM CDT [facility] CALCIUM S/P/B 9.1 8.5 - 10.1 MG/DL 12/31/2022 11:45 AM CDT [facility] BILIRUBIN TOTAL S/P/B 0.5 0.2 - 1.0 MG/DL 12/31/2022 11:45 AM T [facility] ALKALINE PHOSPHATASE S/P/B 92 55 - 142 U/L 12/31/2022 11:45 AM [facility] AST 29 15 - 37 U/L 12/31/2022 11:45 AM [facility] Comment:RESULT QUESTIONABLE DUE TO HEMOLYSIS, CONSIDER RECOLLECTION. ALT 24 13 - 56 U/L 12/31/2022 11:45 AM [facility] TOTAL PROTEIN S/P/B 6.7 6.4 - 8.2 G/DL 12/31/2022 11:45 AM [facility] ALBUMIN S/P/B 3.0(L) 3.4 - 5.0 G/DL 12/31/2022 11:45 AM [facility] ANION GAP 9.3 5.0 - 15.0 MMOL/L 12/31/2022 11:45 AM [facility] OSMOLALITY (CALC) 294 MOSM/KG 023 11:45 AM [facility] Comment:REFERENCE RANGE NOT ESTABLISHED GFR ESTIMATE 16(L) >90 ML/MIN/1. 73 M2 12/31/2022 11:45 AM [facility] GFR NOTES GFR REFERENCE S: 12/31/2022 11:45 AM [facility] Comment: THE ESTIMATED GFR [...] ml/min/1.73 m2 G5,KIDNEY FAILURE: <15 ml/min/1.73 m2 12/31/2022 10:1 1 AM CDT us Fidelina Owens MD LABORATORY Final Res ult [facility] [address] [place] [address], [place] [phone] * (ABNORMAL) CBC W/DIFF AUTOMATED (12/31/2022 10:11 AM CDT) Pathologist [facility] WBC 9.05 4.00 - 10.80 x10'3/uL 12/31/2022 10:43 AM CDT [facility] RBC 4.07(L) 4.10 - 5.40 x10'6/uL 12/31/2022 10:43 AM CDT [facility] HGB 12.5 12.0 - 16.0 G/DL 12/31/2022 10:43 AM CDT [facility] HCT 39.2 36.0 - 47.0 % 12/31/2022 10:43 AM CDT [facility] MCV 96.3 78.0 - 100.0 FL 12/31/2022 10:43 AM CDT [facility] MCH 30.7 27.0 - 31.0 PG 12/31/2022 10:43 AM CDT [facility] MCHC 31.9(L) 33.0 - 36.0 G/DL 12/31/2022 10:43 AM CDT [facility] RDW 13.8 11.5 - 14.5 % 12/31/2022 10:43 AM CDT [facility] PLT 208 150 - 350 x10'3/uL 12/31/2022 10:43 AM CDT [facility] MPV 10.9(H) 7.4 - 10.4 FL 12/31/2022 10:43 AM CDT [facility] ABS. NEUTROPHILS 6.63 1.60 - 8.30 x10'3/uL 12/31/2022 10:43 AM CDT [facility] ABS. LYMPHOCYTES 1.24 0.80 - 4.70 x10'3/uL 12/31/2022 10:43 AM CDT [facility] ABS. MONOCYTES 0.78 0.00 - 1.50 x10'3/uL 12/31/2022 10:43 AM CDT [facility] ABS. EOSINOPHILS 0.32 0.00 - 0.40 x10'3/uL 12/31/2022 10:43 AM CDT [facility] ABS. BASOPHILS 0.05 0.00 - 0.20 x10'3/uL 12/31/2022 10:43 AM CDT [facility] ABS. IMMATURE GRANULOCYTES 0.03 0.00 - 0.03 x10'3/uL 12/31/2022 10:43 AM CDT [facility] ABS. NUCLEATED RBC'S 0.00 0.0 x10'3/uL 12/31/2022 10:43 AM CDT [facility] 12/31/2022 10:1 1 AM CDT us Fidelina Owens MD LABORATORY Final Res ult [facility] [address] [place] [address], [phone] * CULTURE, URINE (12/30/2022 2:49 PM CDT) SPEC DESCRIPTION URINE CLEAN CATCH 12/30/2022 2:49 PM CDT [facility] SPECIAL REQUESTS NO SPECIAL REQUEST 12/30/2022 2:49 PM CDT [facility] CULTURE RESULT NO GROWTH (< OR = 1,000 CFU/ML) 01/01/2023 7:46 AM CDT [facility] URINE SPECIMEN OBTAINED BY CLEAN CATCH PROCEDURE / Unknown 12/30/2022 2:49 PM CDT 12/30/2022 3:45 PM CDT Fidelina Owens MD MICROBIOLOGY - GENERAL OR DERABLES Final Result [facility] [address] [place] [address], [id number] * (ABNORMAL) COMPREHENSIVE METABOLIC PANEL (12/30/2022 3:42 AM CDT) SODIUM S/P/B 141 136 - 145 MMOL/L 12/30/2022 4:42 AM CDT [facility] POTASSIUM S/P/B 4.6 3.5 - 5.1 MMOL/L 12/30/2022 4:42 AM CDT [facility] Comment:MILD HEMOLYSIS, RESU LT MAY BE AFFECTED. CHLORIDE S/P/B 107 98 - 107 MMOL/L 12/30/2022 4:42 AM CDT [facility] CO2 25.0 21.0 - 32.0 MMOL/L 12/30/2022 4:42 AM CDT [facility] GLUCOSE 110(H) 74 - 106 MG/DL 12/30/2022 4:42 AM CDT [facility] BUN 39(H) 7 - 18 MG/DL 12/30/2022 4:42 AM CDT [facility] CREATININE S/P/B 3.74(H) 0.55 - 1.02 MG/DL 12/30/2022 4:42 AM CDT [facility] CALCIUM S/P/B 8.9 8.5 - 10.1 MG/DL 12/30/2022 4:42 AM CDT [facility] BILIRUBIN TOTAL S/P/B 0.6 0.2 - 1.0 MG/DL 12/30/2022 4:42 AM CDT [facility] ALKALINE PHOSPHATASE S/P/B 90 55 - 142 U/L 12/30/2022 4:42 AM CDT [facility] AST 20 15 - 37 U/L 12/30/2022 4:42 AM T [facility] Comment:RESULT QUESTIONABLE DUE TO HEMOLYSIS, CONSIDER RECOLLECTION. ALT 20 13 - 56 U/L 12/30/2022 4:42 AM T [facility] TOTAL PROTEIN S/P/B 6.4 6.4 - 8.2 G/DL 12/30/2022 4:42 AM CDT [facility] ALBUMIN S/P/B 2.8(L) 3.4 - 5.0 G/DL 12/30/2022 4:42 AM CDT [facility] ANION GAP 9.0 5.0 - 15.0 MMOL/L 12/30/2022 4:42 AM T [facility] OSMOLALITY (CALC) 302 MOSM/KG 023 4:42 AM T [facility] Comment:REFERENCE RANGE NOT ESTABLISHED GFR ESTIMATE 12(L) >90 ML/MIN/1. 73 M2 12/30/2022 4:42 AM T [facility] GFR NOTES GFR REFERENCE S: 12/30/2022 4:42 AM T [facility] Comment: THE ESTIMATED GFR IS [...] ml/min/1.73 m2 G5,KIDNEY FAILURE: <15 ml/min/1.73 m2 12/30/2022 3:42 AM CDT us Fidelina Owens MD LABORATORY Final Res ult [facility] [address] [place] [address], [id number] * (ABNORMAL) CBC W/DIFF AUTOMATED (12/30/2022 3:42 AM CDT) [facility] Signature WBC 8.03 4.00 - 10.80 x10'3/uL 12/30/2022 4:05 AM CDT [facility] RBC 3.98(L) 4.10 - 5.40 x10'6/uL 12/30/2022 4:05 AM CDT [facility] HGB 12.2 12.0 - 16.0 G/DL 12/30/2022 4:05 AM CDT [facility] HCT 37.3 36.0 - 47.0 % 12/30/2022 4:05 AM CDT [facility] MCV 93.7 78.0 - 100.0 FL 12/30/2022 4:05 AM CDT [facility] MCH 30.7 27.0 - 31.0 PG 12/30/2022 4:05 AM CDT [facility] MCHC 32.7(L) 33.0 - 36.0 G/DL 12/30/2022 4:05 AM CDT [facility] RDW 13.9 11.5 - 14.5 % 12/30/2022 4:05 AM CDT [facility] PLT 246 150 - 350 x10'3/uL 12/30/2022 4:05 AM CDT [facility] MPV 10.9(H) 7.4 - 10.4 FL 12/30/2022 4:05 AM CDT [facility] ABS. NEUTROPHILS 5.46 1.60 - 8.30 x10'3/uL 12/30/2022 4:05 AM CDT [facility] ABS. LYMPHOCYTES 1.41 0.80 - 4.70 x10'3/uL 12/30/2022 4:05 AM CDT [facility] ABS. MONOCYTES 0.73 0.00 - 1.50 x10'3/uL 12/30/2022 4:05 AM CDT [facility] ABS. EOSINOPHILS 0.36 0.00 - 0.40 x10'3/uL 12/30/2022 4:05 AM CDT [facility] ABS. BASOPHILS 0.05 0.00 - 0.20 x10'3/uL 12/30/2022 4:05 AM CDT [facility] ABS. IMMATURE GRANULOCYTES 0.02 0.00 - 0.03 x10'3/uL 12/30/2022 4:05 AM CDT [facility] ABS. NUCLEATED RBC'S 0.00 0.0 x10'3/uL 12/30/2022 4:05 AM CDT [facility] 12/30/2022 3:42 AM CDT Fidelina Owens MD LABORATORY Final Res ult Performing Organization Address City/[facility] Co de Phone Number [facility] [address] [place] [address], [phone] * PHOSPHORUS, INORGANIC PHOSPHATE (12/30/2022 3:42 AM CDT) PHOSPHORUS 4.7 2.5 - 4.9 MG/DL 12/30/2022 4:42 AM CDT [facility] 12/30/2022 3:42 AM CDT Fidelina Owens MD LABORATORY Final Res ult [facility] [address] [place] [address], [id number] * MAGNESIUM (12/30/2022 3:42 AM CDT) MAGNESIUM 2.3 1.6 - 2.6 MG/DL 12/30/2022 4:42 AM CDT [facility] Comment:RESULT QUESTIONABLE DUE TO HEMOLYSIS, RECOMMEND RECOLLECTION. 12/30/2022 3:42 AM CDT Fidelina Owens MD LABORATORY Final Res ult Performing Organization Address [facility] Co de Phone Number [facility] [address] [place] [address], [id number] * HEPATITIS B CORE AB IGM (12/29/2022 5:38 PM CDT) HEP B CORE IGM NON-REACT STEPHY NON-REACT STEPHY 12/29/2022 8:37 PM CDT [facility] Comment: IgM ANTI HBc NOT DETECTED. DOES NOT EXCLUDE THE POSSIBILITY OF EXPOSURE TO OR INFECTION WITH HBV. NO RETEST REQUIRED. HIGH DOSES OF BIOTIN MAY INTERFERE WITH THIS TEST RESULT. CORRELATION TO CLINICAL HISTORY AND PRESENTATION RECOMMENDED. 12/29/2022 5:38 PM CDT Fidelina Owens MD LABORATORY Final Res ult Performing Organization Address [facility] de Phone Number [facility] [address] [place] [address], [place] [phone] * (ABNORMAL) HEPATITIS B CORE ANTIBODY (12/29/2022 5:38 PM CDT) HEP B CORE TOTAL AB REACTIVE(A ) NON-REACTI VE 12/29/2022 7:30 PM CDT [facility] Comment:REFLEX TESTING FOR I gM ANTI HBc WILL BE PERFORMED AND REPORTED SEPARATELY. 12/29/2022 5:38 PM CDT Fidelina Owens MD LABORATORY Final Res ult Performing Organization Address [facility] Co de Phone Number [facility] [address] [place] [address], [place] [phone] * (ABNORMAL) HEPATITIS B SURFACE ANTIBODY (12/29/2022 11:19 AM CDT) HEP B SURFACE AB 7.6(L) >9.9 MIU/ML 12/29/2022 2:16 PM CDT [facility] Comment:INDIVIDUAL IS CONSID ERED NOT IMMUNE TO HBV INFECTION. 12/29/2022 11:1 9 AM CDT us Jorje Fernandez MD LABORATORY Final Result Performing Organization Address [facility]/ZIP Co de Phone Number [facility] [address] [place] [address], [place] [phone] * HEPATITIS B SURFACE AG, EIA (12/29/2022 11:19 AM CDT) HEPATITIS B SURFACE AG NON-REACTI VE NON-REACTI VE 12/29/2022 2:16 PM CDT [facility] Comment:HBsAg NOT DETECTED. 12/29/2022 11:1 9 AM CDT us Jorje Fernandez MD LABORATORY Final Result Performing Organization Address [facility] Co de Phone Number [facility] [address] [place] [address], [place] [phone] * IR TUNNELED CENT CATH INSERT (12/29/2022 11:08 AM CDT) Anatomical Region Laterality Modality Undefined Interventional R adiology 12/29/2022 2:11 PM CDT Impressions 12/29/2022 2:15 PM CDT IMPRESSION: Uneventful ultrasound fluoroscopically guided placement of right internal jugular ??tunneled dialysis catheter. Catheter is ready for immediate use. Ordered By: KANDI RUTH Interpreted By: Timur Dickey MD, 12/29/2022 2:11 PM Narrative 12/29/2022 2:15 PM CDT PROCEDURE: 1. Central venogram 2. Ultrasound and fluoroscopically guided placement of right internal jugular tunneled dialysis catheter INDICATION: Acute on chronic renal insufficiency. TECHNIQUE: Following informed consent and universal protocol to verify correct patient, site, and procedure to be performed, the patient was placed in the supine position on the fluoroscopic examination table. Maximum sterile barrier techniques and sterile ultrasound technique were utilized throughout the procedure. The right internal jugular vein was identified by ultrasound and noted to be patent and compressible. Local anesthesia was achieved using buffered 1% lidocaine, and a small dermatotomy was created. Under continuous ultrasound guidance utilizing micropuncture technique, the right internal jugular vein was accessed, and an image was stored in PACS. Initially, a 0.018 wire failed to pass below the level of the clavicle. Contrast was injected via the micropuncture needle, showing a lateral course of the internal jugular vein at its junction with the subclavian. This may represent anatomic variant, versus possible short segment occlusion of the inferior aspect of the internal jugular with reconstitution via an external jugular branch. While there was some curvature related to this anatomy, a 0.018 wire and micropuncture introducer were utilized to navigate this curve allowing wire placement to the right heart. 0.035 guidewire was then placed through the micropuncture cannula to the IVC. This was left in place while the catheter tunnel site was created. Additional local anesthesia at the right ??chest wall was provided using buffered 1% lidocaine, and an additional dermatotomy was created. A 23 cm tip-to-cuff dialysis catheter was pulled through the subcutaneous tunnel to the venotomy site. The tract was dilated to 14 Faroese over the 0.035 wire, and a peel-away sheath was placed. The tip of the catheter was then placed through the sheath, which was subsequently removed. The catheter tip was positioned in the high right atrium. Both lumens were noted to flush and aspirate easily. The venotomy site was closed with a single interrupted absorbable subcutaneous suture and Dermabond. Tissue at the tunnel exit site was approximated with a modified pursestring of 2-0 Ethilon suture, which was also used to secure the catheter. Sterile dressings were applied. The patient tolerated the procedure well. Fluoroscopy time:1.9minutes,8.4mGy (Ka.r) EBL: Less than 20 mL Conscious sedation: Administered and monitored by a qualified interventional radiology nurse under supervision of the interventional radiologist. There was continuous monitoring of vital signs including pulse oximetry, end-tidal CO2, and EKG. Total agef-xh-ycnv/intraservice sedation time: 11 minutes. Complications: None apparent Procedure Note Timur Dickey MD - 12/29/2022 PROCEDURE: 1. Central venogram 2. Ultrasound and fluoroscopically guided placement of right internaljugular tunneled dialysis catheter INDICATION: Acute on chronic renal insufficiency. TECHNIQUE: Following informed consent and universal protocol to verifycorrect patient, site, and procedure to be performed, the patient wasplaced in the supine position on the fluoroscopic examination table.Maximum sterile barrier techniques and sterile ultrasound technique wereutilized throughout the procedure. The right internal jugular vein wasidentified by ultrasound and noted to be patent and compressible. Localanesthesia was achieved using buffered 1% lidocaine, and a smalldermatotomy was created. Under continuous ultrasound guidance utilizingmicropuncture technique, the right internal jugular vein was accessed, andan image was stored in PACS. Initially, a 0.018 wire failed to pass belowthe level of the clavicle. Contrast was injected via the micropunctureneedle, showing a lateral course of the internal jugular vein at itsjunction with the subclavian. This may represent anatomic variant, versuspossible short segment occlusion of the inferior aspect of the internaljugular with reconstitution via an external jugular branch. While therewas some curvature related to this anatomy, a 0.018 wire and micropunctureintroducer were utilized to navigate this curve allowing wire placement tothe right heart. 0.035 guidewire was then placed through the micropuncturecannula to the IVC. This was left in place while the catheter tunnel sitewas created. Additional local anesthesia at the right chest wall wasprovided using buffered 1% lidocaine, and an additional dermatotomy wascreated. A 23 cm tip-to-cuff dialysis catheter was pulled through thesubcutaneous tunnel to the venotomy site. The tract was dilated to 14French over the 0.035 wire, and a peel-away sheath was placed. The tip ofthe catheter was then placed through the sheath, which was subsequentlyremoved. The catheter tip was positioned in the high right atrium. Bothlumens were noted to flush and aspirate easily. The venotomy site wasclosed with a single interrupted absorbable subcutaneous suture andDermabond. Tissue at the tunnel exit site was approximated with a modifiedpursestring of 2-0 Ethilon suture, which was also used to secure thecatheter. Sterile dressings were applied. The patient tolerated theprocedure well. Fluoroscopy time:1.9minutes,8.4mGy (Ka.r) EBL: Less than 20 mL Conscious sedation: Administered and monitored by a qualifiedinterventional radiology nurse under supervision of the interventionalradiologist. There was continuous monitoring of vital signs includingpulse oximetry, end-tidal CO2, and EKG. Total eoak-ek-vcyb/intraservicesedation time: 11 minutes. Complications: None apparent IMPRESSION: Uneventful ultrasound fluoroscopically guided placement of right internaljugular tunneled dialysis catheter. Catheter is ready for immediate use. Ordered By: KANDI RUTH Interpreted By: Timur Dickey MD, 12/29/2022 2:11 PM Kandi Ruth DO INTERVENTIONAL RADIOLOGY Final Result * (ABNORMAL) COMPREHENSIVE METABOLIC PANEL (12/29/2022 5:26 AM CDT) SODIUM S/P/B 141 136 - 145 MMOL/L 12/29/2022 6:23 AM CDT [facility] POTASSIUM S/P/B 4.7 3.5 - 5.1 MMOL/L 12/29/2022 6:23 AM CDT [facility] CHLORIDE S/P/B 112(H) 98 - 107 MMOL/L 12/29/2022 6:23 AM CDT [facility] CO2 22.0 21.0 - 32.0 MMOL/L 12/29/2022 6:23 AM CDT [facility] GLUCOSE 109(H) 74 - 106 MG/DL 12/29/2022 6:23 AM CDT [facility] BUN 51(H) 7 - 18 MG/DL 12/29/2022 6:23 AM T [facility] CREATININE S/P/B 4.15(H) 0.55 - 1.02 MG/DL 12/29/2022 6:23 AM [facility] CALCIUM S/P/B 8.3(L) 8.5 - 10.1 MG/DL 12/29/2022 6:23 AM T [facility] BILIRUBIN TOTAL S/P/B 0.4 0.2 - 1.0 MG/DL 12/29/2022 6:23 AM [facility] ALKALINE PHOSPHATASE S/P/B 88 55 - 142 U/L 12/29/2022 6:23 AM [facility] AST 9(L) 15 - 37 U/L 12/29/2022 6:23 AM [facility] ALT 24 13 - 56 U/L 12/29/2022 6:23 AM [facility] TOTAL PROTEIN S/P/B 6.0(L) 6.4 - 8.2 G/DL 12/29/2022 6:23 AM [facility] ALBUMIN S/P/B 2.7(L) 3.4 - 5.0 G/DL 12/29/2022 6:23 AM [facility] ANION GAP 7.0 5.0 - 15.0 MMOL/L 12/29/2022 6:23 AM [facility] OSMOLALITY (CALC) 306 MOSM/KG 023 6:23 AM [facility] Comment:REFERENCE RANGE NOT ESTABLISHED GFR ESTIMATE 11(L) >90 ML/MIN/1. 73 M2 12/29/2022 6:23 AM [facility] GFR NOTES GFR REFERENCE S: 12/29/2022 6:23 AM [facility] Comment: THE ESTIMATED GFR [...] ml/min/1.73 m2 G5,KIDNEY FAILURE: <15 ml/min/1.73 m2 12/29/2022 5:26 AM CDT us Fidelina Owens MD LABORATORY Final Res ult [facility] [address] [place] [address], [id number] * (ABNORMAL) CBC W/DIFF AUTOMATED (12/29/2022 5:26 AM CDT) WBC 8.54 4.00 - 10.80 x10'3/uL 12/29/2022 5:50 AM CDT [facility] RBC 3.87(L) 4.10 - 5.40 x10'6/uL 12/29/2022 5:50 AM CDT [facility] HGB 11.6(L) 12.0 - 16.0 G/DL 12/29/2022 5:50 AM CDT [facility] HCT 36.5 36.0 - 47.0 % 12/29/2022 5:50 AM CDT [facility] MCV 94.3 78.0 - 100.0 FL 12/29/2022 5:50 AM CDT [facility] MCH 30.0 27.0 - 31.0 PG 12/29/2022 5:50 AM CDT [facility] MCHC 31.8(L) 33.0 - 36.0 G/DL 12/29/2022 5:50 AM CDT [facility] RDW 13.9 11.5 - 14.5 % 12/29/2022 5:50 AM CDT [facility] PLT 224 150 - 350 x10'3/uL 12/29/2022 5:50 AM CDT [facility] MPV 10.2 7.4 - 10.4 FL 12/29/2022 5:50 AM CDT [facility] ABS. NEUTROPHILS 6.24 1.60 - 8.30 x10'3/uL 12/29/2022 5:50 AM CDT [facility] ABS. LYMPHOCYTES 1.15 0.80 - 4.70 x10'3/uL 12/29/2022 5:50 AM CDT [facility] ABS. MONOCYTES 0.64 0.00 - 1.50 x10'3/uL 12/29/2022 5:50 AM CDT [facility] ABS. EOSINOPHILS 0.44(H) 0.00 - 0.40 x10'3/uL 12/29/2022 5:50 AM CDT [facility] ABS. BASOPHILS 0.05 0.00 - 0.20 x10'3/uL 12/29/2022 5:50 AM CDT [facility] ABS. IMMATURE GRANULOCYTES 0.02 0.00 - 0.03 x10'3/uL 12/29/2022 5:50 AM CDT [facility] ABS. NUCLEATED RBC'S 0.00 0.0 x10'3/uL 12/29/2022 5:50 AM CDT [facility] 12/29/2022 5:26 AM CDT us Fidelina Owens MD LABORATORY Final Res ult [facility] [address] [place] [address], [phone] * (ABNORMAL) PHOSPHORUS, INORGANIC PHOSPHATE (12/29/2022 5:26 AM CDT) PHOSPHORUS 5.9(H) 2.5 - 4.9 MG/DL 12/29/2022 6:23 AM CDT [facility] 12/29/2022 5:26 AM CDT Fidelina Owens MD LABORATORY Final Res ult Performing Organization Address City/[facility] Co de Phone Number [facility] [address] [place] [address], [place] [phone] * MAGNESIUM (12/29/2022 5:26 AM CDT) MAGNESIUM 2.4 1.6 - 2.6 MG/DL 12/29/2022 6:23 AM CDT [facility] 12/29/2022 5:26 AM CDT Fidelina Owens MD LABORATORY Final Res ult Performing Organization Address [facility] Co de Phone Number [facility] [address] [place] [address], [place] [phone] * PROTIME/INR, VENOUS (PROTHROMBIN TIME) (12/29/2022 5:26 AM CDT) PROTIME 10.3 9.4 - 12.5 SEC 12/29/2022 6:09 AM CDT [facility] INR 0.9 0.8 - 1.1 12/29/2022 6:09 AM CDT [facility] 12/29/2022 5:26 AM CDT Timur Dickey MD LABORATORY Final Result Performing Organization Address City/[facility]/ZIP Co de Phone Number [facility] [address] [place] [address], [place] [phone] * (ABNORMAL) URINALYSIS (12/28/2022 8:05 PM CDT) COLOR (U) YELLOW 12/28/2022 8:29 PM CDT [facility] TRANSPARENCY TURBID 12/28/2022 8:29 PM CDT [facility] SPECIFIC GRAVITY (U) 1.015 1.002 - 1.035 12/28/2022 8:29 PM CDT [facility] U PH 6.5 5 - 8 12/28/2022 8:29 PM CDT [facility] PROTEIN RANDOM (U) 300(A) NEGATIVE 12/28/2022 8:29 PM CDT [facility] GLUCOSE (U) NEGATIVE NEGATIVE MG/DL 12/28/2022 8:29 PM CDT [facility] KETONES MG/DL (U) NEGATIVE NEGATIVE 12/28/2022 8:29 PM CDT [facility] BILIRUBIN (U) NEGATIVE NEGATIVE 12/28/2022 8:29 PM CDT [facility] BLOOD (U) 1+(A) NEGATIVE 12/28/2022 8:29 PM CDT [facility] NITRITES POSITIVE(A) NEGATIVE 12/28/2022 8:29 PM CDT [facility] UROBILINOGEN NORMAL 0 - 1 EU/DL 12/28/2022 8:29 PM CDT [facility] LEUKOCYTES (U) 3+(A) NEGATIVE 12/28/2022 8:29 PM CDT [facility] RBC/HPF 5(H) 0 - 3 /HPF 12/28/2022 8:29 PM CDT [facility] WBC/HPF 346(H) 0 - 6 /HPF 12/28/2022 8:29 PM CDT [facility] BACTERIA (U) PRESENT /HPF 12/28/2022 8:29 PM CDT [facility] SQUAMOUS EPITHELIALS 2 12/28/2022 8:29 PM CDT [facility] URINE SPECIMEN OBTAINED BY CLEAN CATCH PROCEDURE / Unknown 12/28/2022 8:05 PM CDT us Christopher Roberts III, MD URINE ORDERABLES Final Result Performing Organization Address [facility] Co de Phone Number [facility] [address] [place] [address], [place] [phone] * CREATININE URINE RANDOM (12/28/2022 8:05 PM CDT) CREATININE (U) 107.0 MG/DL 12/28/2022 8:41 PM CDT [facility] Comment:REFERENCE RANGE NOT ESTABLISHED URINE SPECIMEN / Unknown 12/28/2022 8:05 PM CDT us Christopher Roberts III, MD URINE ORDERABLES Final Result Performing Organization Address [facility] de Phone Number [facility] [address] [place] [address], [place] [phone] * UREA NITROGEN URINE RANDOM (12/28/2022 8:05 PM CDT) UREA NITROGEN (U) 536 MG/DL 12/28/2022 8:41 PM CDT [facility] Comment:REFERENCE RANGE NOT ESTABLISHED URINE SPECIMEN / Unknown 12/28/2022 8:05 PM CDT us Christopher Roberts III, MD URINE ORDERABLES Final Result Performing Organization Address [facility] Co de Phone Number [facility] [address] [place] [address], [place] [phone] * SODIUM URINE RANDOM (12/28/2022 8:05 PM CDT) NA RANDOM (U) 51 MMOL/L 12/28/2022 8:41 PM CDT [facility] Comment:REFERENCE RANGE NOT ESTABLISHED URINE SPECIMEN / Unknown 12/28/2022 8:05 PM CDT Christopher Roberts III, MD URINE ORDERABLES Final Result Performing Organization Address [facility] de Phone Number [facility] [address] [place] [address], [phone] * (ABNORMAL) PHOSPHORUS, INORGANIC PHOSPHATE (12/28/2022 6:15 AM CDT) [facility] PHOSPHORUS 6.1(H) 2.5 - 4.9 MG/DL 12/28/2022 7:41 AM CDT [facility] 12/28/2022 6:15 AM CDT Fidelina Owens MD LABORATORY Final Res ult Performing Organization Address [facility] de Phone Number [facility] [address] [place] [address], [phone] * MAGNESIUM (12/28/2022 6:15 AM CDT) [facility] MAGNESIUM 2.3 1.6 - 2.6 MG/DL 12/28/2022 7:41 AM CDT [facility] 12/28/2022 6:15 AM CDT Fidelina Owens MD LABORATORY Final Res ult Performing Organization Address [facility] de Phone Number [facility] [address] [place] [address], [place] [phone] * (ABNORMAL) CBC W/DIFF AUTOMATED (12/28/2022 6:15 AM CDT) [facility] WBC 10.18 4.00 - 10.80 x10'3/uL 12/28/2022 7:10 AM CDT [facility] RBC 3.98(L) 4.10 - 5.40 x10'6/uL 12/28/2022 7:10 AM CDT [facility] HGB 12.0 12.0 - 16.0 G/DL 12/28/2022 7:10 AM CDT [facility] HCT 37.7 36.0 - 47.0 % 12/28/2022 7:10 AM CDT [facility] MCV 94.7 78.0 - 100.0 FL 12/28/2022 7:10 AM CDT [facility] MCH 30.2 27.0 - 31.0 PG 12/28/2022 7:10 AM CDT [facility] MCHC 31.8(L) 33.0 - 36.0 G/DL 12/28/2022 7:10 AM CDT [facility] RDW 13.8 11.5 - 14.5 % 12/28/2022 7:10 AM CDT [facility] PLT 228 150 - 350 x10'3/uL 12/28/2022 7:10 AM CDT [facility] MPV 10.7(H) 7.4 - 10.4 FL 12/28/2022 7:10 AM CDT [facility] ABS. NEUTROPHILS 7.41 1.60 - 8.30 x10'3/uL 12/28/2022 7:10 AM CDT [facility] ABS. LYMPHOCYTES 1.51 0.80 - 4.70 x10'3/uL 12/28/2022 7:10 AM CDT [facility] ABS. MONOCYTES 0.76 0.00 - 1.50 x10'3/uL 12/28/2022 7:10 AM CDT [facility] ABS. EOSINOPHILS 0.41(H) 0.00 - 0.40 x10'3/uL 12/28/2022 7:10 AM CDT [facility] ABS. BASOPHILS 0.05 0.00 - 0.20 x10'3/uL 12/28/2022 7:10 AM CDT [facility] ABS. IMMATURE GRANULOCYTES 0.04(H) 0.00 - 0.03 x10'3/uL 12/28/2022 7:10 AM CDT [facility] ABS. NUCLEATED RBC'S 0.00 0.0 x10'3/uL 12/28/2022 7:10 AM CDT [facility] 12/28/2022 6:15 AM CDT us Fidelina Owens MD LABORATORY Final Res ult [facility] [address] [place] [address], [phone] * (ABNORMAL) COMPREHENSIVE METABOLIC PANEL (12/28/2022 6:15 AM CDT) SODIUM S/P/B 142 136 - 145 MMOL/L 12/28/2022 7:41 AM CDT [facility] POTASSIUM S/P/B 4.6 3.5 - 5.1 MMOL/L 12/28/2022 7:41 AM CDT [facility] CHLORIDE S/P/B 112(H) 98 - 107 MMOL/L 12/28/2022 7:41 AM CDT [facility] CO2 21.5 21.0 - 32.0 MMOL/L 12/28/2022 7:41 AM CDT [facility] GLUCOSE 110(H) 74 - 106 MG/DL 12/28/2022 7:41 AM CDT [facility] BUN 52(H) 7 - 18 MG/DL 12/28/2022 7:41 AM CDT [facility] CREATININE S/P/B 4.32(H) 0.55 - 1.02 MG/DL 12/28/2022 7:41 AM T [facility] CALCIUM S/P/B 8.9 8.5 - 10.1 MG/DL 12/28/2022 7:41 AM [facility] BILIRUBIN TOTAL S/P/B 0.8 0.2 - 1.0 MG/DL 12/28/2022 7:41 AM [facility] ALKALINE PHOSPHATASE S/P/B 85 55 - 142 U/L 12/28/2022 7:41 AM [facility] AST 16 15 - 37 U/L 12/28/2022 7:41 AM [facility] ALT 31 13 - 56 U/L 12/28/2022 7:41 AM [facility] TOTAL PROTEIN S/P/B 6.2(L) 6.4 - 8.2 G/DL 12/28/2022 7:41 AM [facility] ALBUMIN S/P/B 2.8(L) 3.4 - 5.0 G/DL 12/28/2022 7:41 AM [facility] ANION GAP 8.5 5.0 - 15.0 MMOL/L 12/28/2022 7:41 AM [facility] OSMOLALITY (CALC) 309 MOSM/KG 023 7:41 AM [facility] Comment:REFERENCE RANGE NOT ESTABLISHED GFR ESTIMATE 10(L) >90 ML/MIN/1. 73 M2 12/28/2022 7:41 AM [facility] GFR NOTES GFR REFERENCE S: 12/28/2022 7:41 AM [facility] Comment: THE ESTIMATED GFR [...] ml/min/1.73 m2 G5,KIDNEY FAILURE: <15 ml/min/1.73 m2 12/28/2022 6:15 AM CDT Fidelina Owens MD LABORATORY Final Res ult [facility] [address] [place] [address], [phone] * US RETROPERITONEAL LTD (12/27/2022 8:44 AM CDT) Anatomical Region Laterality Modality Renal Ultrasound 12/27/2022 10:4 8 AM CDT Impressions 12/27/2022 10:55 AM CDT IMPRESSION: 1. ??Diffusely increased renal cortical echogenicity, suggesting chronic medical renal disease. ??No hydronephrosis is seen. 2. ??Poor visualization of the left kidney due to atrophy, lack of adequate acoustic window, and diffusely increased cortical echogenicity. 3. ??No sonographic correlate to the small, subcentimeter, foci of hyperattenuation seen on prior CT; however sensitivity of sonography for evaluation of subcentimeter renal lesions is relatively low. ??Recommend further characterization with CT or MRI renal mass protocol. 4. ??Small volume of layering echogenic debris in the urinary bladder. Referred By: ANA NAIDU Interpreted By: Juan R Lazo DO, 12/27/2022 10:48 AM Narrative 12/27/2022 10:55 AM CDT EXAMINATION: US RETROPERITONEAL LTD EXAM DATE: 12/27/2022 7:54 AM CLINICAL HISTORY: Acute kidney injury. COMPARISON: CT abdomen and pelvis 12/19/2022 and retroperitoneal ultrasound 02/20/2022. TECHNIQUE: Sonographic evaluation of the retroperitoneum, including both kidneys and urinary bladder, was performed utilizing grayscale and color Doppler technique. FINDINGS: RIGHT KIDNEY: The right kidney measures approximately 12.2 x 5.8 x 6.4 cm and demonstrates diffusely increased parenchymal echogenicity, compatible with chronic renal parenchymal disease. ??Color Doppler flow is preserved. ??No sonographic evidence is seen to suggest hydronephrosis or echogenic calculus. ??No sonographic correlate to the small, subcentimeter foci of hyperattenuation seen on prior CT. LEFT KIDNEY: The left kidney is poorly visualized due to atrophy, lack of adequate acoustic window, and diffusely increased cortical echogenicity and is therefore suboptimally evaluated. ??No sonographic evidence is seen to suggest hydronephrosis. ??The calculi noted on prior CT are not visualized on this examination. URINARY BLADDER: There is no urinary bladder wall thickening. ??A small amount of echogenic material layers dependently in the urinary bladder without internal color Doppler flow, suggesting layering debris. ??The ureteral jets are not visualized on this examination. Procedure Note Juan R Lazo, DO - 12/27/2022 EXAMINATION: US RETROPERITONEAL LTD EXAM DATE: 12/27/2022 7:54 AM CLINICAL HISTORY: Acute kidney injury. COMPARISON: CT abdomen and pelvis 12/19/2022 and retroperitoneal [id number]/5/2022. TECHNIQUE: Sonographic evaluation of the retroperitoneum, including both kidneys andurinary bladder, was performed utilizing grayscale and color Dopplertechnique. FINDINGS: RIGHT KIDNEY: The right kidney measures approximately 12.2 x 5.8 x 6.4 cm anddemonstrates diffusely increased parenchymal echogenicity, compatible withchronic renal parenchymal disease. Color Doppler flow is preserved. Nosonographic evidence is seen to suggest hydronephrosis or echogeniccalculus. No sonographic correlate to the small, subcentimeter foci ofhyperattenuation seen on prior CT. LEFT KIDNEY: The left kidney is poorly visualized due to atrophy, lack of adequateacoustic window, and diffusely increased cortical echogenicity and istherefore suboptimally evaluated. No sonographic evidence is seen tosuggest hydronephrosis. The calculi noted on prior CT are not visualizedon this examination. URINARY BLADDER: There is no urinary bladder wall thickening. A small amount of echogenicmaterial layers dependently in the urinary bladder without internal colorDoppler flow, suggesting layering debris. The ureteral jets are notvisualized on this examination. IMPRESSION: 1. Diffusely increased renal cortical echogenicity, suggesting chronicmedical renal disease. No hydronephrosis is seen. 2. Poor visualization of the left kidney due to atrophy, lack of adequateacoustic window, and diffusely increased cortical echogenicity. 3. No sonographic correlate to the small, subcentimeter, foci ofhyperattenuation seen on prior CT; however sensitivity of sonography forevaluation of subcentimeter renal lesions is relatively low. Recommendfurther characterization with CT or MRI renal mass protocol. 4. Small volume of layering echogenic debris in the urinary bladder. Referred By: ANA NAIDU Interpreted By: Juan R Lazo DO, 12/27/2022 10:48 AM us Kandi Ruth DO ULTRASOUND Final Result * (ABNORMAL) PHOSPHORUS, INORGANIC PHOSPHATE (12/27/2022 4:14 AM CDT) PHOSPHORUS 5.0(H) 2.5 - 4.9 MG/DL 12/27/2022 5:12 AM CDT [facility] 12/27/2022 4:14 AM CDT us Fidelina Owens MD LABORATORY Final Res ult [facility] [address] [place] [address], [id number] * MAGNESIUM (12/27/2022 4:14 AM CDT) MAGNESIUM 2.1 1.6 - 2.6 MG/DL 12/27/2022 5:12 AM CDT [facility] 12/27/2022 4:1 4 AM CDT us Fidelina Owens MD LABORATORY Final Res ult [facility] [address] [place] [address], [phone] * (ABNORMAL) CBC W/DIFF AUTOMATED (12/27/2022 4:14 AM CDT) WBC 11.66(H) 4.00 - 10.80 x10'3/uL 12/27/2022 4:34 AM CDT [facility] RBC 4.11 4.10 - 5.40 x10'6/uL 12/27/2022 4:34 AM CDT [facility] HGB 12.4 12.0 - 16.0 G/DL 12/27/2022 4:34 AM CDT [facility] HCT 38.6 36.0 - 47.0 % 12/27/2022 4:34 AM CDT [facility] MCV 93.9 78.0 - 100.0 FL 12/27/2022 4:34 AM CDT [facility] MCH 30.2 27.0 - 31.0 PG 12/27/2022 4:34 AM CDT [facility] MCHC 32.1(L) 33.0 - 36.0 G/DL 12/27/2022 4:34 AM CDT [facility] RDW 13.8 11.5 - 14.5 % 12/27/2022 4:34 AM CDT [facility] PLT 213 150 - 350 x10'3/uL 12/27/2022 4:34 AM CDT [facility] MPV 9.7 7.4 - 10.4 FL 12/27/2022 4:34 AM CDT [facility] ABS. NEUTROPHILS 9.11(H) 1.60 - 8.30 x10'3/uL 12/27/2022 4:34 AM CDT [facility] ABS. LYMPHOCYTES 1.34 0.80 - 4.70 x10'3/uL 12/27/2022 4:34 AM CDT [facility] ABS. MONOCYTES 0.77 0.00 - 1.50 x10'3/uL 12/27/2022 4:34 AM CDT [facility] ABS. EOSINOPHILS 0.34 0.00 - 0.40 x10'3/uL 12/27/2022 4:34 AM CDT [facility] ABS. BASOPHILS 0.06 0.00 - 0.20 x10'3/uL 12/27/2022 4:34 AM CDT [facility] ABS. IMMATURE GRANULOCYTES 0.04(H) 0.00 - 0.03 x10'3/uL 12/27/2022 4:34 AM CDT [facility] ABS. NUCLEATED RBC'S 0.00 0.0 x10'3/uL 12/27/2022 4:34 AM CDT [facility] 12/27/2022 4:14 AM CDT us Fidelina Owens MD LABORATORY Final Res ult [facility] [address] [place] [address], [id number] * (ABNORMAL) COMPREHENSIVE METABOLIC PANEL (12/27/2022 4:14 AM CDT) Pathologist [facility] SODIUM S/P/B 143 136 - 145 MMOL/L 12/27/2022 5:12 AM CDT [facility] POTASSIUM S/P/B 4.4 3.5 - 5.1 MMOL/L 12/27/2022 5:12 AM CDT [facility] CHLORIDE S/P/B 114(H) 98 - 107 MMOL/L 12/27/2022 5:12 AM CDT [facility] CO2 22.2 21.0 - 32.0 MMOL/L 12/27/2022 5:12 AM CDT [facility] GLUCOSE 123(H) 74 - 106 MG/DL 12/27/2022 5:12 AM CDT [facility] BUN 45(H) 7 - 18 MG/DL 12/27/2022 5:12 AM T [facility] CREATININE S/P/B 3.77(H) 0.55 - 1.02 MG/DL 12/27/2022 5:12 AM CDT [facility] CALCIUM S/P/B 8.4(L) 8.5 - 10.1 MG/DL 12/27/2022 5:12 AM CDT [facility] BILIRUBIN TOTAL S/P/B 0.5 0.2 - 1.0 MG/DL 12/27/2022 5:12 AM T [facility] ALKALINE PHOSPHATASE S/P/B 86 55 - 142 U/L 12/27/2022 5:12 AM T [facility] AST 17 15 - 37 U/L 12/27/2022 5:12 AM T [facility] ALT 34 13 - 56 U/L 12/27/2022 5:12 AM T [facility] TOTAL PROTEIN S/P/B 6.2(L) 6.4 - 8.2 G/DL 12/27/2022 5:12 AM [facility] ALBUMIN S/P/B 2.8(L) 3.4 - 5.0 G/DL 12/27/2022 5:12 AM T [facility] ANION GAP 6.8 5.0 - 15.0 MMOL/L 12/27/2022 5:12 AM T [facility] OSMOLALITY (CALC) 309 MOSM/KG 023 5:12 AM [facility] Comment:REFERENCE RANGE NOT ESTABLISHED GFR ESTIMATE 12(L) >90 ML/MIN/1. 73 M2 12/27/2022 5:12 AM T [facility] GFR NOTES GFR REFERENCE S: 12/27/2022 5:12 AM CDT [facility] Comment: THE ESTIMATED GFR IS [...] ml/min/1.73 m2 G5,KIDNEY FAILURE: <15 ml/min/1.73 m2 12/27/2022 4:14 AM CDT us Fidelina Owens MD LABORATORY Final Res ult [facility] [address] [place] [address], [id number] * XR SHOULDER RT 3V (12/26/2022 8:22 PM CDT) Anatomical Region Laterality Modality Shoulder Radiographic Sharon ging 12/26/2022 10:3 0 PM CDT Impressions 12/26/2022 10:31 PM CDT IMPRESSION: ?? 1. ??Right shoulder arthroplasty with no convincing acute osseous or hardware abnormality Referred By: ANA NAIDU Interpreted By: Stevenson Urbina MD, 12/26/2022 10:30 PM Narrative 12/26/2022 10:31 PM CDT Examination: 2 or more views right shoulder Exam date/time: 12/26/2022 8:18 PM Reason For Exam: ??pain ?? Right shoulder pain after a fall Comparison: Right shoulder radiographs 03/04/2020 Technique: AP internal and external rotation with axillary views of the right shoulder obtained Findings: Total right shoulder arthroplasty noted which appears in position. ??No periprosthetic lucencies. ??No adjacent fracture or dislocation identified. ??No destructive osseous lesions. Procedure Note Stevenson Urbina MD - 12/26/2022 Examination: 2 or more views right shoulder Exam date/time: 12/26/2022 8:18 PM Reason For Exam: pain Right shoulder pain after a fall Comparison: Right shoulder radiographs 03/04/2020 Technique: AP internal and external rotation with axillary views of theright shoulder obtained Findings: Total right shoulder arthroplasty noted which appears inposition. No periprosthetic lucencies. No adjacent fracture ordislocation identified. No destructive osseous lesions. IMPRESSION: 1. Right shoulder arthroplasty with no convincing acute osseous orhardware abnormality Referred By: ANA NAIDU Interpreted By: Stevenson Urbina MD, 12/26/2022 10:30 PM Fidelina Owens MD GENERAL IMAGING Final Res ult * USE ECHOCARDIOGRAM (12/26/2022 1:48 PM CDT) Anatomical Region Laterality Modality Cardiac Echocardiogram 12/26/2022 1:22 PM CDT Narrative 12/26/2022 4:20 PM CDT ?Echocardiography Report Pat.Name: ??TRISHA LAWRENCE ?Pat.ID: ?[id number] ? St.Date: ?? 12/26/2022 ? Refer.MD: ??[id number] PHEMISTER ANA L ? EWDPROV ?EWDPROV Exam Time: 1:22:00 PM ? Study Type:ECHO WITH CARDIAC DOPPLER COMP Height: ?67 in ? Weight: ?186 lb ? BSA: ? 1.96 m2 ?Age: ??1950,72Y ? Sex: ? F ? BP: ?149/87 ? HR: ?74 bpm ?Sonogrphr: She Rojas RDCS ? Pat. Stat.:Inpatient ? Room: ?1114 ? CPT - 4: ?06641 ? Reason for Study:SOB CHF ? Procedures: 2D, M-mode, Doppler, Color Flow, Portable Race: ?W ? ++++++++++++++++++++++++++++++++++++ SUMMARY: ++++++++++++++++++++++++++++++++++++ The left ventricular size is small. The left ventricular systolic function is hyperdynamic. The calculated ejection fraction is >65%. Wall motion appears normal in all segments. The right ventricular function is normal. The left atrial volume is normal ( less than 34 ml/M2). No evidence of aortic valve stenosis. No evidence of aortic valve regurgitation. No evidence of significant mitral regurgitation. Moderate thickening of mitral valve leaflets. The tricuspid valve appears structurally normal. ++++++++++++++++++++++++++++++++++++ FINDINGS: ++++++++++++++++++++++++++++++++++++ LV: ? The left ventricular size is small. The left ventricular ?systolic function is hyperdynamic. The calculated ejection ?fraction is >65%. The septal E/e' is indeterminate at 8-15. ?The lateral E/e' is indeterminate at 9-11. The average E/e' ?is indeterminate at 9-12 and EF is > or equal to 50. WM: ? Wall motion appears normal in all segments. RV: ? The right ventricle size is normal. The right ventricular ?function is normal. IVS: ?Intraventricular septum is normal. LA: ? The left atrial volume is normal ( less than 34 ml/M2). RA: ? Right atrial size is normal. ARIELLA: ? No evidence of pericardial effusion. PA: ? Pulmonary artery not well visualized. PVn: ?Pulmonary veins are not assessable. SVn: ?Inferior vena cava is normal. AV: ? No evidence of aortic valve stenosis. No evidence of aortic ?valve regurgitation. The aortic valve not well visualized. MV: ? No evidence of significant mitral regurgitation. Moderate ?thickening of mitral valve leaflets. PV: ? Pulmonic valve not well visualized. TV: ? The tricuspid valve appears structurally normal. There is ?trace tricuspid regurgitation. ++++++++++++++++++++++++++++++++++++ MEASUREMENTS: ++++++++++++++++++++++++++++++++++++ ?DOPPLER LVOT ?? LVOTpkPG ?11 mmHg ?LVOTmnPG ? 5 mmHg LVOTpkVel ?166 cm/s (70-110)* LVOT SV ?118 ml ?? LVOT TVI ?35.7 cm ? AV Forward Flow AV TVI ?39.8 cm ?AV pkPG ? 15 mmHg AV pkVel ? 192 cm/s (100-170)* Area (TVI) ?2.96 cm2 ??(3-5)* AV mnVel ? 136 cm/s ?Area (Thaddeus) ?2.85 cm2 ??(3-5)* AV mnPG ?9 mmHg ? MV Forward Flow MV DeTm ?278 msec ?MV pkPG ?9 mmHg MVA P1/2t ? 2.12 cm2 ??(4-6)* ?? MV E/A ? 0.5 ? MV P1/2t ? 104 msec (30-60)+* MV pkE ?67 cm/s (60-130) MV mnPG ?3 mmHg ?MV pkA ? 139 cm/s Lat E' ?? Lat e ? 7.18 cm/s ? Lat E/E' ?? Lat E/e ?9.3 ? Med E' ?? Med e ? 4.46 cm/s ? Med E/E' ?? Med E/e ? 15 ? Aortic Valve ?? Aortic Valve Ar ??1.51 ?Aortic Valve Ve ??0.86 ? AV DI ?? Value ?0.9 ? GUILLERMINA (VTI) Index ?? Value ? 1.51 ? RA Volume ?? Atrial Burns ?? 5.23 cm ? Atrial Burns ?? 18.2 cm2 Atrial Burns ? 53 ml ? SV (LVOT) Index ?? Value ? 60 ml ?2D Aorta ?? Ao Rtd ?2.87 cm ?? (zsc 0.1) LVOT ?? LVOT ?2.05 cm ? LA Biplane LAVol I BP ?32 ml/m2 ? Right Ventricle ?? Right Ventricle ??3.35 cm ? Right Ventricle ?? 3.3 cm ?? Major Ceres ?6.06 cm ?MMODE TA ?? Tricuspid Annul ??1.42 cm ? <Electronic Signature> 12/26/2022 04:20 PM Maria R Patricia M.D. Procedure Note Maria R Patricia MD - 12/26/2022 Echocardiography Report Pat.Name: TRISHA LAWRENCE Pat.ID: [id number] .Date: 12/26/2022 : [id number] EVANGELISTA Henriquez EWDPROV EWDPROV Exam Time: 1:22:00 PM Study Type:ECHO WITH CARDIAC DOPPLER COMP Height: 67 in Weight: 186 lb BSA: 1.96 m2 Age: 6 1950,72Y Sex: F BP: 149/87 HR: 74 bpm Sonogrphr: Mason Rojasley [facility] Pat. Stat.:Inpatient Room: 1114 CPT - 4: 27493 Reason for Study:SOB CHF Procedures: 2D, M-mode, Doppler, Color Flow, Portable Race: W ++++++++++++++++++++++++++++++++++++ SUMMARY: ++++++++++++++++++++++++++++++++++++ The left ventricular size is small. The left ventricular systolic function is hyperdynamic. The calculated ejection fraction is >65%. Wall motion appears normal in all segments. The right ventricular function is normal. The left atrial volume is normal ( less than 34 ml/M2). No evidence of aortic valve stenosis. No evidence of aortic valve regurgitation. No evidence of significant mitral regurgitation. Moderate thickening of mitral valve leaflets. The tricuspid valve appears structurally normal. ++++++++++++++++++++++++++++++++++++ FINDINGS: ++++++++++++++++++++++++++++++++++++ LV: The left ventricular size is small. The left ventricular systolic function is hyperdynamic. The calculated ejection fraction is >65%. The septal E/e' is indeterminate at 8-15. The lateral E/e' is indeterminate at 9-11. The average E/e' is indeterminate at 9-12 and EF is > or equal to 50. WM: Wall motion appears normal in all segments. RV: The right ventricle size is normal. The right ventricular function is normal. IVS: Intraventricular septum is normal. LA: The left atrial volume is normal ( less than 34 ml/M2). RA: Right atrial size is normal. ARIELLA: No evidence of pericardial effusion. PA: Pulmonary artery not well visualized. PVn: Pulmonary veins are not assessable. SVn: Inferior vena cava is normal. AV: No evidence of aortic valve stenosis. No evidence of aortic valve regurgitation. The aortic valve not well visualized. MV: No evidence of significant mitral regurgitation. Moderate thickening of mitral valve leaflets. PV: Pulmonic valve not well visualized. TV: The tricuspid valve appears structurally normal. There is trace tricuspid regurgitation. ++++++++++++++++++++++++++++++++++++ MEASUREMENTS: ++++++++++++++++++++++++++++++++++++ DOPPLER LVOT LVOTpkPG 11 mmHg LVOTmnPG 5 mmHg LVOTpkVel 166 cm/s (70-110)* LVOT SV 118 ml LVOT TVI 35.7 cm AV Forward Flow AV TVI 39.8 cm AV pkPG 15 mmHg AV pkVel 192 cm/s (100-170)* Area (TVI) 2.96 cm2 (3-5)* AV mnVel 136 cm/s Area (Thaddeus) 2.85 cm2 (3-5)* AV mnPG 9 mmHg MV Forward Flow MV DeTm 278 msec MV pkPG 9 mmHg MVA P1/2t 2.12 cm2 (4-6)* MV E/A 0.5 MV P1/2t 104 msec (30-60)+* MV pkE 67 cm/s (60-130) MV mnPG 3 mmHg MV pkA 139 cm/s Lat E' Lat e 7.18 cm/s Lat E/E' Lat E/e 9.3 Med E' Med e 4.46 cm/s Med E/E' Med E/e 15 Aortic Valve Aortic Valve Ar 1.51 Aortic Valve Ve 0.86 AV DI Value 0.9 GUILLERMINA (VTI) Index Value 1.51 RA Volume Atrial Burns 5.23 cm Atrial Burns 18.2 cm2 Atrial Burns 53 ml SV (LVOT) Index Value 60 ml 2D Aorta Ao Rtd 2.87 cm (zsc 0.1) LVOT LVOT 2.05 cm LA Biplane LAVol I BP 32 ml/m2 Right Ventricle Right Ventricle 3.35 cm Right Ventricle 3.3 cm Major Ceres 6.06 cm MMODE TA Tricuspid Annul 1.42 cm <Electronic Signature> 12/26/2022 04:20 PM Maria R Patricia M.D. us Fidelina Owens MD ECHO Final Res ult * (ABNORMAL) RENAL FUNCTION PANEL (12/26/2022 3:56 AM CDT) SODIUM S/P/B 143 136 - 145 MMOL/L 12/26/2022 4:38 AM CDT [facility] POTASSIUM S/P/B 4.1 3.5 - 5.1 MMOL/L 12/26/2022 4:38 AM CDT [facility] CHLORIDE S/P/B 114(H) 98 - 107 MMOL/L 12/26/2022 4:38 AM CDT [facility] CO2 21.5 21.0 - 32.0 MMOL/L 12/26/2022 4:38 AM CDT [facility] GLUCOSE 111(H) 74 - 106 MG/DL 12/26/2022 4:38 AM CDT [facility] BUN 40(H) 7 - 18 MG/DL 12/26/2022 4:38 AM CDT [facility] CREATININE S/P/B 3.52(H) 0.55 - 1.02 MG/DL 12/26/2022 4:38 AM CDT [facility] CALCIUM S/P/B 9.0 8.5 - 10.1 MG/DL 12/26/2022 4:38 AM CDT [facility] ALBUMIN S/P/B 2.8(L) 3.4 - 5.0 G/DL 12/26/2022 4:38 AM CDT [facility] PHOSPHORUS 4.6 2.5 - 4.9 MG/DL 12/26/2022 4:38 AM CDT [facility] ANION GAP 7.5 5.0 - 15.0 MMOL/L 12/26/2022 4:38 AM CDT [facility] OSMOLALITY (CALC) 306 MOSM/KG 023 4:38 AM CDT [facility] Comment:REFERENCE RANGE NOT ESTABLISHED GFR ESTIMATE 13(L) >90 ML/MIN/1. 73 M2 12/26/2022 4:38 AM CDT [facility] GFR NOTES GFR REFERENCE S: 12/26/2022 4:38 AM CDT [facility] Comment: THE ESTIMATED GFR IS [...] ml/min/1.73 m2 G5,KIDNEY FAILURE: <15 ml/min/1.73 m2 12/26/2022 3:56 AM CDT Kandi Ruth DO LABORATORY Final Result [facility] [address] [place] [address], [place] [phone] [id number] * XR CHEST PORTABLE (12/25/2022 1:19 PM CDT) Anatomical Region Laterality Modality Chest Radiographic Sharon ging 12/25/2022 1:37 PM CDT Impressions 12/25/2022 2:15 PM CDT IMPRESSION: 1. Increased interstitial markings of the bibasilar lung bases right worse than left with trace bilateral pleural effusions. This could be consistent with interstitial edema. The attending radiologist has reviewed the image(s) and agrees with the content of this report. Ordered By: FRANCISCO SOTO Interpreted By: Ricki Guido MD, 12/25/2022 1:37 PM Narrative 12/25/2022 2:15 PM CDT Examination: XR CHEST PORTABLE Clinical history: wheezing chest discomfort ?? Comparison: CT chest abdomen and pelvis 12/19/2022 Technique: AP portable view of the chest was obtained. Findings: Postsurgical changes of the right shoulder hardware appears grossly intact. The heart size appears within normal limits. There is a prominent aortic notch with mild deviation of the trachea. There is increased central pulmonary vascular congestion. There is increased bibasilar interstitial markings consistent with edema. Cephalization of the vessels. No parenchymal consolidations are identified. Bilateral trace pleural effusions. There is no pneumothorax. No acute osseous abnormality is identified. Procedure Note Jeovanny Thacker MD - 12/25/2022 Examination: XR CHEST PORTABLE Clinical history: wheezing chest discomfort Comparison: CT chest abdomen and pelvis 12/19/2022 Technique: AP portable view of the chest was obtained. Findings: Postsurgical changes of the right shoulder hardware appears grosslyintact. The heart size appears within normal limits. There is a prominentaortic notch with mild deviation of the trachea. There is increasedcentral pulmonary vascular congestion. There is increased bibasilarinterstitial markings consistent with edema. Cephalization of the vessels.No parenchymal consolidations are identified. Bilateral trace pleuraleffusions. There is no pneumothorax. No acute osseous abnormality isidentified. IMPRESSION: 1. Increased interstitial markings of the bibasilar lung bases right worsethan left with trace bilateral pleural effusions. This could be consistentwith interstitial edema. The attending radiologist has reviewed the image(s) and agrees with thecontent of this report. Ordered By: FRANCSICO SOTO Interpreted By: Ricki Guido MD, 12/25/2022 1:37 PM us Francisco Soto MD GENERAL IMAGING Final Result * (ABNORMAL) BMP WITHOUT GLUCOSE (12/24/2022 3:43 AM CDT) SODIUM S/P/B 144 136 - 145 MMOL/L 12/24/2022 4:35 AM CDT [facility] POTASSIUM S/P/B 4.4 3.5 - 5.1 MMOL/L 12/24/2022 4:35 AM CDT [facility] CHLORIDE S/P/B 118(H) 98 - 107 MMOL/L 12/24/2022 4:35 AM CDT [facility] CO2 19.6(L) 21.0 - 32.0 MMOL/L 12/24/2022 4:35 AM CDT [facility] BUN 37(H) 7 - 18 MG/DL 12/24/2022 4:35 AM CDT [facility] CREATININE S/P/B 3.02(H) 0.55 - 1.02 MG/DL 12/24/2022 4:35 AM CDT [facility] CALCIUM S/P/B 8.8 8.5 - 10.1 MG/DL 12/24/2022 4:35 AM CDT [facility] ANION GAP 6.4 5.0 - 15.0 MMOL/L 12/24/2022 4:35 AM CDT [facility] GFR ESTIMATE 16(L) >90 ML/MIN/1. 73 M2 12/24/2022 4:35 AM CDT [facility] GFR NOTES GFR REFERENCE S: 12/24/2022 4:35 AM CDT [facility] Comment: THE ESTIMATED GFR IS [...] ml/min/1.73 m2 G5,KIDNEY FAILURE: <15 ml/min/1.73 m2 12/24/2022 3:43 AM CDT us Francisco Soto MD LABORATORY Final Result [facility] [address] [place] [address], [id number] * BIOFIRE PCR UPPER RESPIRATORY PROFILE (RESPIRATORY PCR PANEL 2) (12/23/2022 10:00 AM CDT) [facility] ADENOVIRUS PCR (RESP) NOT DETECTED NOT DETECTED 12/23/2022 11:04 AM CDT [facility] CORONAVIRUS 229E PCR (RESP) NOT DETECTED NOT DETECTED 12/23/2022 11:04 AM CDT [facility] CORONAVIRUS HKU1 PCR (RESP) NOT DETECTED NOT DETECTED 12/23/2022 11:04 AM CDT [facility] CORONAVIRUS NL63 PCR (RESP) NOT DETECTED NOT DETECTED 12/23/2022 11:04 AM CDT [facility] CORONAVIRUS OC43 PCR (RESP) NOT DETECTED NOT DETECTED 12/23/2022 11:04 AM CDT [facility] METAPNEUMOVIRUS PCR (RESP) NOT DETECTED NOT DETECTED 12/23/2022 11:04 AM CDT [facility] RHINOVIRUS/ENTEROV IRUS PCR (RESP) NOT DETECTED NOT DETECTED 12/23/2022 11:04 AM CDT [facility] INFLUENZA A PCR (RESP) NOT DETECTED NOT DETECTED 12/23/2022 11:04 AM CDT [facility] INFLUENZA B PCR (RESP) NOT DETECTED NOT DETECTED 12/23/2022 11:04 AM CDT [facility] PARAINFLUENZA 1 PCR (RESP) NOT DETECTED NOT DETECTED 12/23/2022 11:04 AM CDT [facility] PARAINFLUENZA 2 PCR (RESP) NOT DETECTED NOT DETECTED 12/23/2022 11:04 AM CDT [facility] PARAINFLUENZA 3 PCR (RESP) NOT DETECTED NOT DETECTED 12/23/2022 11:04 AM CDT [facility] PARAINFLUENZA 4 PCR (RESP) NOT DETECTED NOT DETECTED 12/23/2022 11:04 AM CDT [facility] RSV PCR (RESP) NOT DETECTED NOT DETECTED 12/23/2022 11:04 AM CDT [facility] B PARAPERTUSIS PCR (RESP) NOT DETECTED NOT DETECTED 12/23/2022 11:04 AM CDT [facility] BORDETELLA PERTUSSIS PCR (RESP) NOT DETECTED NOT DETECTED 12/23/2022 11:04 AM CDT [facility] CHLAMYDOPHILA PNEUMONIAE PCR (RESP) NOT DETECTED NOT DETECTED 12/23/2022 11:04 AM CDT [facility] MYCOPLASMA PNEUMONIAE PCR (RESP) NOT DETECTED NOT DETECTED 12/23/2022 11:04 AM CDT [facility] CORONAVIRUS SARS COV 2 PCR (RESP) NOT DETECTED NOT DETECTED 12/23/2022 11:04 AM CDT [facility] NASOPHARYNGEAL SWAB / Unknown 12/23/2022 10:00 AM CDT us Francisco Soto MD MICROBIOLOGY - GENERAL ORDERABLE S Final Result [facility] [address] [place] [address], [id number] * (ABNORMAL) BMP WITHOUT GLUCOSE (12/23/2022 9:21 AM CDT) SODIUM S/P/B 143 136 - 145 MMOL/L 12/23/2022 9:57 AM CDT [facility] POTASSIUM S/P/B 4.7 3.5 - 5.1 MMOL/L 12/23/2022 9:57 AM CDT [facility] Comment:MILD HEMOLYSIS, RESU LT MAY BE AFFECTED. CHLORIDE S/P/B 119(H) 98 - 107 MMOL/L 12/23/2022 9:57 AM CDT [facility] CO2 16.8(L) 21.0 - 32.0 MMOL/L 12/23/2022 9:57 AM CDT [facility] BUN 38(H) 7 - 18 MG/DL 12/23/2022 9:57 AM CDT [facility] CREATININE S/P/B 3.12(H) 0.55 - 1.02 MG/DL 12/23/2022 9:57 AM CDT [facility] CALCIUM S/P/B 8.8 8.5 - 10.1 MG/DL 12/23/2022 9:57 AM CDT [facility] ANION GAP 7.2 5.0 - 15.0 MMOL/L 12/23/2022 9:57 AM CDT [facility] GFR ESTIMATE 15(L) >90 ML/MIN/1. 73 M2 12/23/2022 9:57 AM CDT [facility] GFR NOTES GFR REFERENCE S: 12/23/2022 9:57 AM CDT [facility] Comment: THE ESTIMATED GFR IS [...] ml/min/1.73 m2 G5,KIDNEY FAILURE: <15 ml/min/1.73 m2 12/23/2022 9:21 AM CDT Francisco Soto MD LABORATORY Final Result [facility] [address] [place] [address], [id number] * (ABNORMAL) CBC W/DIFF AUTOMATED (12/22/2022 9:52 AM CDT) WBC 8.89 4.00 - 10.80 x10'3/uL 12/22/2022 10:26 AM CDT [facility] RBC 4.12 4.10 - 5.40 x10'6/uL 12/22/2022 10:26 AM CDT [facility] HGB 12.4 12.0 - 16.0 G/DL 12/22/2022 10:26 AM CDT [facility] HCT 39.1 36.0 - 47.0 % 12/22/2022 10:26 AM CDT [facility] MCV 94.9 78.0 - 100.0 FL 12/22/2022 10:26 AM CDT [facility] MCH 30.1 27.0 - 31.0 PG 12/22/2022 10:26 AM CDT [facility] MCHC 31.7(L) 33.0 - 36.0 G/DL 12/22/2022 10:26 AM CDT [facility] RDW 13.7 11.5 - 14.5 % 12/22/2022 10:26 AM CDT [facility] PLT 261 150 - 350 x10'3/uL 12/22/2022 10:26 AM CDT [facility] MPV 10.2 7.4 - 10.4 FL 12/22/2022 10:26 AM CDT [facility] ABS. NEUTROPHILS 6.34 1.60 - 8.30 x10'3/uL 12/22/2022 10:26 AM CDT [facility] ABS. LYMPHOCYTES 1.26 0.80 - 4.70 x10'3/uL 12/22/2022 10:26 AM CDT [facility] ABS. MONOCYTES 0.79 0.00 - 1.50 x10'3/uL 12/22/2022 10:26 AM CDT [facility] ABS. EOSINOPHILS 0.41(H) 0.00 - 0.40 x10'3/uL 12/22/2022 10:26 AM CDT [facility] ABS. BASOPHILS 0.06 0.00 - 0.20 x10'3/uL 12/22/2022 10:26 AM CDT [facility] ABS. IMMATURE GRANULOCYTES 0.03 0.00 - 0.03 x10'3/uL 12/22/2022 10:26 AM CDT [facility] ABS. NUCLEATED RBC'S 0.00 0.0 x10'3/uL 12/22/2022 10:26 AM CDT [facility] 12/22/2022 9:52 AM CDT Rigo Trevino MD LABORATORY Final Result [facility] [address] [place] [address], [id number] * (ABNORMAL) BASIC METABOLIC PANEL (12/22/2022 4:44 AM CDT) SODIUM S/P/B 146(H) 136 - 145 MMOL/L 12/22/2022 5:59 AM CDT [facility] POTASSIUM S/P/B 4.4 3.5 - 5.1 MMOL/L 12/22/2022 5:59 AM CDT [facility] Comment:SLIGHT HEMOLYSIS, RE SULT MAY BE AFFECTED. CHLORIDE S/P/B 121(H) 98 - 107 MMOL/L 12/22/2022 5:59 AM CDT [facility] CO2 15.9(L) 21.0 - 32.0 MMOL/L 12/22/2022 5:59 AM CDT [facility] GLUCOSE 111(H) 74 - 106 MG/DL 12/22/2022 5:59 AM CDT [facility] BUN 48(H) 7 - 18 MG/DL 12/22/2022 5:59 AM CDT [facility] CREATININE S/P/B 3.29(H) 0.55 - 1.02 MG/DL 12/22/2022 5:59 AM CDT [facility] CALCIUM S/P/B 8.5 8.5 - 10.1 MG/DL 12/22/2022 5:59 AM CDT [facility] ANION GAP 9.1 5.0 - 15.0 MMOL/L 12/22/2022 5:59 AM CDT [facility] OSMOLALITY (CALC) 315 MOSM/KG 023 5:59 AM CDT [facility] Comment:REFERENCE RANGE NOT ESTABLISHED GFR ESTIMATE 14(L) >90 ML/MIN/1. 73 M2 12/22/2022 5:59 AM CDT [facility] GFR NOTES GFR REFERENCE S: 12/22/2022 5:59 AM CDT [facility] Comment: THE ESTIMATED GFR IS [...] ml/min/1.73 m2 G5,KIDNEY FAILURE: <15 ml/min/1.73 m2 12/22/2022 4:44 AM CDT Rigo Trevino MD LABORATORY Final Result [facility] [address] [place] [id number], [id number] * VITAMIN D, 25 OH (12/21/2022 4:54 AM CDT) VITAMIN D 25 HYDROXY S/P/B 26.4 20.0 - 50.0 NG/ML 12/21/2022 6:45 AM CDT [facility] Comment: <10 ng/mL (Severe deficiency) 10 TO 19 ng/mL (Mild to Moderate deficiency) 20 TO 50 ng/mL (Optimum levels) 51 TO 80 ng/mL (Increased risk of hypercalciuria) >80 ng/mL (Toxicity possible) 12/21/2022 4:54 AM CDT Adan Horton MD LABORATORY Final Result Performing Organization Address City/[facility] Co de Phone Number [facility] [address] [place] [address], [id number] * (ABNORMAL) PTH - INTACT (12/21/2022 4:54 AM CDT) PTH INTACT 256.3(H) 18.4 - 80.1 PG/ML 12/21/2022 5:59 AM CDT [facility] Comment: ASSAY PERFORMED BY CHEMILUMINESCENCE METHODOLOGY USING [employer]. PATIENT RESULTS DETERMINED BY ASSAYS USING DIFFERENT MANUFACTURERS FOR METHODS MAY NOT BE COMPARABLE. 12/21/2022 4:54 AM CDT Adan Horton MD LABORATORY Final Result Performing Organization Address [facility] Co de Phone Number [facility] [address] [place] [address], [id number] * PHOSPHORUS, INORGANIC PHOSPHATE (12/21/2022 4:54 AM CDT) [facility] PHOSPHORUS 3.8 2.5 - 4.9 MG/DL 12/21/2022 5:56 AM CDT [facility] 12/21/2022 4:54 AM CDT us Adan Horton MD LABORATORY Final Result Performing Organization Address City/[facility]/ZIP Co de Phone Number [facility] [address] [place] [address], [place] [phone] * (ABNORMAL) BASIC METABOLIC PANEL (12/21/2022 4:54 AM CDT) SODIUM S/P/B 143 136 - 145 MMOL/L 12/21/2022 5:56 AM T [facility] POTASSIUM S/P/B 3.8 3.5 - 5.1 MMOL/L 12/21/2022 5:56 AM T [facility] CHLORIDE S/P/B 120(H) 98 - 107 MMOL/L 12/21/2022 5:56 AM T [facility] CO2 17.1(L) 21.0 - 32.0 MMOL/L 12/21/2022 5:56 AM T [facility] GLUCOSE 105 74 - 106 MG/DL 12/21/2022 5:56 AM [facility] BUN 55(H) 7 - 18 MG/DL 12/21/2022 5:56 AM [facility] CREATININE S/P/B 3.77(H) 0.55 - 1.02 MG/DL 12/21/2022 5:56 AM T [facility] CALCIUM S/P/B 8.5 8.5 - 10.1 MG/DL 12/21/2022 5:56 AM T [facility] ANION GAP 5.9 5.0 - 15.0 MMOL/L 12/21/2022 5:56 AM [facility] OSMOLALITY (CALC) 311 MOSM/KG 023 5:56 AM [facility] Comment:REFERENCE RANGE NOT ESTABLISHED GFR ESTIMATE 12(L) >90 ML/MIN/1. 73 M2 12/21/2022 5:56 AM [facility] GFR NOTES GFR REFERENCE S: 12/21/2022 5:56 AM [facility] Comment: THE ESTIMATED GFR [...] ml/min/1.73 m2 G5,KIDNEY FAILURE: <15 ml/min/1.73 m2 12/21/2022 4:54 AM CDT Christopher Roberts III, MD LABORATORY Final R esult [facility] [address] [place] [address], [id number] * (ABNORMAL) CBC W/DIFF AUTOMATED (12/21/2022 4:47 AM CDT) WBC 7.95 4.00 - 10.80 x10'3/uL 12/21/2022 5:25 AM CDT [facility] RBC 4.00(L) 4.10 - 5.40 x10'6/uL 12/21/2022 5:25 AM CDT [facility] HGB 12.2 12.0 - 16.0 G/DL 12/21/2022 5:25 AM CDT [facility] HCT 38.2 36.0 - 47.0 % 12/21/2022 5:25 AM CDT [facility] MCV 95.5 78.0 - 100.0 FL 12/21/2022 5:25 AM CDT [facility] MCH 30.5 27.0 - 31.0 PG 12/21/2022 5:25 AM CDT [facility] MCHC 31.9(L) 33.0 - 36.0 G/DL 12/21/2022 5:25 AM CDT [facility] RDW 13.8 11.5 - 14.5 % 12/21/2022 5:25 AM CDT [facility] PLT 213 150 - 350 x10'3/uL 12/21/2022 5:25 AM CDT [facility] MPV 10.9(H) 7.4 - 10.4 FL 12/21/2022 5:25 AM CDT [facility] ABS. NEUTROPHILS 5.22 1.60 - 8.30 x10'3/uL 12/21/2022 5:25 AM CDT [facility] ABS. LYMPHOCYTES 1.51 0.80 - 4.70 x10'3/uL 12/21/2022 5:25 AM CDT [facility] ABS. MONOCYTES 0.77 0.00 - 1.50 x10'3/uL 12/21/2022 5:25 AM CDT [facility] ABS. EOSINOPHILS 0.38 0.00 - 0.40 x10'3/uL 12/21/2022 5:25 AM CDT [facility] ABS. BASOPHILS 0.05 0.00 - 0.20 x10'3/uL 12/21/2022 5:25 AM CDT [facility] ABS. IMMATURE GRANULOCYTES 0.02 0.00 - 0.03 x10'3/uL 12/21/2022 5:25 AM CDT [facility] ABS. NUCLEATED RBC'S 0.00 0.0 x10'3/uL 12/21/2022 5:25 AM CDT [facility] 12/21/2022 4:47 AM CDT Christopher Roberts III, MD LABORATORY Final R esult [facility] [address] [place] [address], [id number] * THYROID STIM HORMONE, TSH (12/20/2022 5:09 AM CDT) TSH 0.952 0.358 - 3.740 uIU/ML 12/20/2022 7:09 AM CDT [facility] Comment: ASSAY PERFORMED BY CHEMILUMINESCENCE METHODOLOGY USING [employer] [facility]. PATIENT RESULTS DETERMINED BY ASSAYS USING DIFFERENT MANUFACTURERS FOR METHODS MAY NOT BE COMPARABLE. 12/20/2022 5:09 AM CDT Christopher Roberts III, MD LABORATORY Final R esult [facility] [address] [place] [address], [id number] * (ABNORMAL) BASIC METABOLIC PANEL (12/20/2022 5:09 AM CDT) SODIUM S/P/B 144 136 - 145 MMOL/L 12/20/2022 7:09 AM CDT [facility] POTASSIUM S/P/B 3.5 3.5 - 5.1 MMOL/L 12/20/2022 7:09 AM CDT [facility] CHLORIDE S/P/B 119(H) 98 - 107 MMOL/L 12/20/2022 7:09 AM CDT [facility] CO2 17.6(L) 21.0 - 32.0 MMOL/L 12/20/2022 7:09 AM CDT [facility] GLUCOSE 114(H) 74 - 106 MG/DL 12/20/2022 7:09 AM CDT [facility] BUN 66(H) 7 - 18 MG/DL 12/20/2022 7:09 AM CDT [facility] CREATININE S/P/B 4.30(H) 0.55 - 1.02 MG/DL 12/20/2022 7:09 AM CDT [facility] CALCIUM S/P/B 8.5 8.5 - 10.1 MG/DL 12/20/2022 7:09 AM CDT [facility] ANION GAP 7.4 5.0 - 15.0 MMOL/L 12/20/2022 7:09 AM CDT [facility] OSMOLALITY (CALC) 318 MOSM/KG 023 7:09 AM CDT [facility] Comment:REFERENCE RANGE NOT ESTABLISHED GFR ESTIMATE 10(L) >90 ML/MIN/1. 73 M2 12/20/2022 7:09 AM CDT [facility] GFR NOTES GFR REFERENCE S: 12/20/2022 7:09 AM CDT [facility] Comment: THE ESTIMATED GFR IS [...] ml/min/1.73 m2 G5,KIDNEY FAILURE: <15 ml/min/1.73 m2 12/20/2022 5:09 AM CDT us Christopher Roberts III, MD LABORATORY Final R esult [facility] [address] [place] [address], [place] [phone] [id number] * (ABNORMAL) CBC W/DIFF AUTOMATED (12/20/2022 5:09 AM CDT) WBC 8.78 4.00 - 10.80 x10'3/uL 12/20/2022 5:41 AM CDT [facility] RBC 4.09(L) 4.10 - 5.40 x10'6/uL 12/20/2022 5:41 AM CDT [facility] HGB 12.4 12.0 - 16.0 G/DL 12/20/2022 5:41 AM CDT [facility] HCT 38.9 36.0 - 47.0 % 12/20/2022 5:41 AM CDT [facility] MCV 95.1 78.0 - 100.0 FL 12/20/2022 5:41 AM CDT [facility] MCH 30.3 27.0 - 31.0 PG 12/20/2022 5:41 AM CDT [facility] MCHC 31.9(L) 33.0 - 36.0 G/DL 12/20/2022 5:41 AM CDT [facility] RDW 13.6 11.5 - 14.5 % 12/20/2022 5:41 AM CDT [facility] PLT 212 150 - 350 x10'3/uL 12/20/2022 5:41 AM CDT [facility] MPV 11.0(H) 7.4 - 10.4 FL 12/20/2022 5:41 AM CDT [facility] ABS. NEUTROPHILS 6.35 1.60 - 8.30 x10'3/uL 12/20/2022 5:41 AM CDT [facility] ABS. LYMPHOCYTES 1.19 0.80 - 4.70 x10'3/uL 12/20/2022 5:41 AM CDT [facility] ABS. MONOCYTES 1.03 0.00 - 1.50 x10'3/uL 12/20/2022 5:41 AM CDT [facility] ABS. EOSINOPHILS 0.12 0.00 - 0.40 x10'3/uL 12/20/2022 5:41 AM CDT [facility] ABS. BASOPHILS 0.04 0.00 - 0.20 x10'3/uL 12/20/2022 5:41 AM CDT [facility] ABS. IMMATURE GRANULOCYTES 0.05(H) 0.00 - 0.03 x10'3/uL 12/20/2022 5:41 AM CDT [facility] ABS. NUCLEATED RBC'S 0.00 0.0 x10'3/uL 12/20/2022 5:41 AM CDT [facility] 12/20/2022 5:09 AM CDT Christopher Roberts III, MD LABORATORY Final R esult [facility] [address] [place] [address], [place] [phone] [id number] documented in this encounter Visit Diagnoses Diagnosis Acute renal failure superimposed on stage 4 chronic kidney disease, unspecified acute renal failure type (CMS/HCC HHS/HCC)- Primary Closed fracture of proximal end of right humerus with routine healing, unspecified fracture morphology, subsequent encounter documented in this encounter Admitting Diagnoses Diagnosis Acute renal failure superimposed on stage 4 chronic kidney disease, unspecified acute renal failure type ([facility]/HCC HHS/HCC) Acute renal failure superimposed on chronic kidney disease (CMS/HCC) documented in this encounter Administered Medications Inactive Administered Medications - up to 3 most recent administrations Medication Order MAR Action Action Date Dose Rate Site acetaminophen (TYLENOL) tablet 650 mg 650 mg, Oral, Every 4 hours PRN, Mild pain (Scale 1 - 3), Starting on Sun12/20/22 at 0251, Until 01/06/23 at 1449, Maximum dose of acetaminophen is 4000 mg from all sources in 24 hours. Given 12/23/2022 9:20 AM CDT 650 mg albuterol sulfate HFA 108 (90 Base) MCG/ACT inhaler 2 puff 2 puff, Inhalation, Every 6 hours PRN, Wheezing, Starting on Sun12/22/22 at 1249, Until 01/06/23 at 1449 Given 12/28/2022 9:38 AM CDT 2 puffs Given 12/25/2022 10:26 AM CDT 2 puffs Given 12/23/2022 3:22 PM CDT 2 puffs amLODIPine (NORVASC) tablet 5 mg 5 mg, Oral, Daily, First dose on Sun12/20/22 at 0915, Until Discontinued Given 01/03/2023 8:18 AM CDT 5 mg Given 01/02/2023 1:44 PM CDT 5 mg Given 01/01/2023 8:26 AM CDT 5 mg aspirin chewable tablet 81 mg 81 mg, Oral, Daily, First dose on Sat /14/23 at 0900, Until Discontinued Given 01/05/2023 9:48 AM CDT 81 mg Given 01/04/2023 8:39 AM CDT 81 mg Given 01/03/2023 8:18 AM CDT 81 mg aspirin EC (ECOTRIN) tablet 81 mg 81 mg, Oral, Daily, First dose on Sun12/20/22 at 0915, Until Discontinued, Do not break, chew, or crush. Given 12/28/2022 9:06 AM CDT 81 mg Given 12/27/2022 9:06 AM CDT 81 mg Given 12/26/2022 9:14 AM CDT 81 mg ceFAZolin (ANCEF) 1 g in sodium chloride 0.9 % 50 mL IVPB 1 g, Intravenous, Administer over 30 Minutes, Once, 1 dose, On Sun12/29/22 at 0915 New Bag 12/29/2022 10:41 AM CDT 1 g 100 mL/hr cefTRIAXone (ROCEPHIN) 1 g in sodium chloride 0.9 % 50 mL IVPB 1 g, Intravenous, at 100 mL/hr, Every 24 hours, First dose on Sun12/29/22 at 1000, Until Discontinued New Bag 12/31/2022 10:08 AM CDT 1 g 10 0 mL/hr New Bag 12/30/2022 3:30 PM CDT 1 g 100 mL/hr New Bag 12/29/2022 2:17 PM CDT 1 g 100 mL/hr fentaNYL (SUBLIMAZE) injection Code/trauma/sedation medication, Starting on Sun12/29/22 at 1058, Until Sun12/29/22 at 1058 Given 12/29/2022 10:58 AM CDT 25 mcg fentaNYL (SUBLIMAZE) injection Code/trauma/sedation medication, Starting on Sun12/29/22 at 1105, Until Sun12/29/22 at 1105 Given 12/29/2022 11:05 AM CDT 25 mcg furosemide (LASIX) injection 20 mg 20 mg, Intravenous, Once, 1 dose, On 12/25/22 at 1330, Administer IV push 20-40mg/min. Given 12/25/2022 1:36 PM CDT 20 mg furosemide (LASIX) tablet 20 mg 20 mg, Oral, Every 48 hours, First dose on Sun12/27/22 at 0915, Until Discontinued Given 01/04/2023 8:39 AM CDT 20 mg Given 01/02/2023 1:43 PM CDT 20 mg Given 12/31/2022 7:34 AM CDT 20 mg gabapentin (NEURONTIN) capsule 100 mg 100 mg, Oral, 3 times daily, First dose on Sun12/20/22 at 0915, Until Discontinued Given 12/21/2022 8:22 AM CDT 100 mg Given 12/20/2022 9:47 PM CDT 100 mg Given 12/20/2022 4:03 PM CDT 100 mg gabapentin (NEURONTIN) capsule 100 mg 100 mg, Oral, 3 times daily, First dose (after last modification) on Joan 12/21/22 at 1600, Until Discontinued Given 01/05/2023 8:15 PM CDT 100 mg Given 01/05/2023 9:48 AM CDT 100 mg Given 01/04/2023 9:51 PM CDT 100 mg guaiFENesin ER (MUCINEX) 12 hr tablet 600 mg 600 mg, Oral, 2 times daily, First dose on 12/23/22 at 0945, Until Discontinued, Do not break, chew, or crush. Given 01/05/2023 8:15 PM CDT 600 mg Given 01/05/2023 9:48 AM CDT 600 mg Given 01/04/2023 9:51 PM CDT 600 mg heparin (porcine) 68058 UNIT/ML injection Code/trauma/sedation medication, Starting on Sun12/29/22 at 1118, Until Sun12/29/22 at 1118 Given 12/29/2022 11:18 AM CDT 2,000 Units heparin (porcine) injection 5,000 Units 5,000 Units, Subcutaneous, Every 12 hours scheduled (2 times per day), First dose on Sun12/20/22 at 0900, Until Discontinued Given 01/05/2023 8:15 PM CDT 5,000 Units Right Lower Abdomen Given 01/05/2023 9:48 AM CDT 5,000 Units R ight Lower Abdomen Given 01/04/2023 9:51 PM CDT 5,000 Units R ight Lower Abdomen hydrALAZINE (APRESOLINE) injection 10 mg 10 mg, Intravenous, Every 6 hours PRN, Other, SBP>160, Starting on Sun12/26/22 at 1129, Until 01/06/23 at 1449, Monitor HR and BP before dose and 15 min after IV dose. For IV push give over 1-2 minutes=5mg/min. HYDROcodone-acetaminophen (NORCO) 5-325 MG tablet 1 tablet 1 tablet, Oral, Every 4 hours PRN, Moderate pain (Scale 4 - 7), Starting on Sun12/20/22 at 0251, Until Sun01/06/23 at 1449, Maximum dose of acetaminophen is 4000 mg from all sources in 24 hours. Given 12/27/2022 4:28 PM CDT 1 tablet Given 12/20/2022 4:54 PM CDT 1 tablet ipratropium-albuterol (DUONEB) 0.5-2.5 (3) MG/3ML nebulizer solution 3 mL 3 mL, Nebulization, Every 4 hours, First dose on Sun12/25/22 at 1330, Until Discontinued Given 12/25/2022 4:12 PM CDT 3 mLs ipratropium-albuterol (DUONEB) 0.5-2.5 (3) MG/3ML nebulizer solution 3 mL 3 mL, Nebulization, Every 4 hours, First dose (after last modification) on Sun12/25/22 at 1900, Until Discontinued Given 12/30/2022 8:17 AM CDT 3 mLs Given 12/30/2022 2:33 AM CDT 3 mLs Given 12/29/2022 10:58 PM CDT 3 mLs ipratropium-albuterol (DUONEB) 0.5-2.5 (3) MG/3ML nebulizer solution 3 mL 3 mL, Nebulization, 2 times daily, First dose (after last modification) on 12/30/22 at 1900, Until Discontinued Given 01/05/2023 6:53 PM CDT 3 mLs Given 01/05/2023 7:18 AM CDT 3 mLs Given 01/04/2023 6:57 PM CDT 3 mLs lidocaine (XYLOCAINE) 1 % injection SOLN Code/trauma/sedation medication, Starting on Sun12/29/22 at 1053, Until Sun12/29/22 at 1053 Given 12/29/2022 10:53 AM CDT 10 mLs Neck metoprolol succinate ER (TOPROL-XL) 24 hr tablet 25 mg 25 mg, Oral, Daily, First dose (after last modification) on 01/06/23 at 0900, Until Discontinued, May be split in half along the tablet score line; do not chew or crush. metoprolol succinate ER (TOPROL-XL) 24 hr tablet 50 mg 50 mg, Oral, Daily, First dose on Sun12/20/22 at 0915, Until Discontinued, May be split in half along the tablet score line; do not chew or crush. Given 01/03/2023 8:18 AM CDT 50 mg Given 01/02/2023 1:44 PM CDT 50 mg Given 01/01/2023 8:26 AM CDT 50 mg metoprolol tartrate (LOPRESSOR) tablet 25 mg 25 mg, Oral, Once, 1 dose, On Sun01/05/23 at 1145 Given 01/05/2023 11:56 AM CDT 25 mg midazolam (VERSED) injection Code/trauma/sedation medication, Starting on Sun12/29/22 at 1058, Until Sun12/29/22 at 1058 Given 12/29/2022 10:58 AM CDT 1 mg normal saline 0.9 % flush 3-10 mL 3-10 mL, Intravenous, Every 8 hours, First dose on Sun12/20/22 at 0315, Until Discontinued Given 12/25/2022 8:39 PM CDT 10 mLs Given 12/23/2022 8:18 PM CDT 10 mLs Given 12/22/2022 8:42 PM CDT 10 mLs polyethylene glycol (GLYCOLAX) packet 17 g 17 g, Oral, Daily as needed, Constipation, Starting on Sun12/20/22 at 0251, Until 01/06/23 at 1449, If both senna and polyethylene glycol are ordered, use 1st; if no response by next dosing interval, go to next option. Given 01/05/2023 8:20 PM CDT 17 g polyvinyl alcohol (LIQUIFILM/ARTIFICIAL TEARS) 1.4 % ophthalmic solution 1 drop 1 drop, Both Eyes, As needed, Dry eyes, Starting on 12/23/22 at 1013, Until 01/06/23 at 1449 Given 12/23/2022 3:23 PM CDT 1 drop sodium bicarbonate tablet 1,300 mg 1,300 mg, Oral, 2 times daily, First dose on Sun12/20/22 at 2100, Until Discontinued Given 12/30/2022 8:22 A M CDT 1,300 mg Given 12/29/2022 8:22 PM CDT 1,300 mg Given 12/28/2022 8:11 PM CDT 1,300 mg sodium chloride 0.45% infusion at 75 mL/hr, Intravenous, Continuous, Starting on Sun12/22/22 at 0845, Until Sun12/25/22 at 1551 New Bag 12/25/2022 9:50 AM CDT 75 mL/hr New Bag 12/24/2022 8:15 PM CDT 75 mL/hr New Bag 12/24/2022 12:17 AM CDT 75 mL/hr sodium chloride 0.9% infusion at 100 mL/hr, Intravenous, Continuous, Starting on Sun12/20/22 at 0315, Until Sun12/22/22 at 0815 New Bag 12/22/2022 5:50 AM CDT 100 mL/hr New Bag 12/21/2022 10:12 PM CDT 100 mL/hr New Bag 12/21/2022 12:22 PM CDT 100 mL/hr documented in this encounter Active and Recently Administered Medications Times are shown in CDT. Scheduled Medication Order 01/04/2023 01/05/2023 01/06/2023 amLODIPine (NORVASC) tablet 5 mg 5 mg, Oral, Daily, First dose on Sun12/20/22 at 0915, Until Discontinued 0840 (Not Given - Provider: Amalia Mahoney LPN - Reason: Other - Comment: afternoon dialysis) 0949 (Hold - Provider: Nurse Ghulam Student - Reason: Provider Order) 0900 (Not Given - Provider: Nancy Han RN - Reason: Transfer to a Procedural area) aspirin chewable tablet 81 mg 81 mg, Oral, Daily, First dose on Sun12/30/22 at 0900, Until Discontinued 0839 (Given - Provider: Amalia Mahoney LPN) 0948 (Given - Provider: Leonard Abdullahi Nurse Student) 0900 (Not Given - Provider: Nancy Han RN - Reason: Transfer to a Procedural area) furosemide (LASIX) tablet 20 mg 20 mg, Oral, Every 48 hours, First dose on Sun12/27/22 at 0915, Until Discontinued 0839 (Given - Provider: Amalia Mahoney LPN) 0900 (Not Given - Provider: Nancy Han RN - Reason: Transfer to a Procedural area) gabapentin (NEURONTIN) capsule 100 mg 100 mg, Oral, 3 times daily, First dose (after last modification) on Joan 12/21/22 at 1600, Until Discontinued 0840 (Given - Provider: Amalia Mahoney LPN)1706 (Given - Provider: Clarissa Isidro RN)2150 (Given - Provider: Kapil Sam RN) 0948 (Given - Provider: Leonard Abdullahi, Nurse Student)1600 (Canceled Entry - Provider: Automatic Discharge Provider - Comment: Automatically canceled at discontinue of medication order)2014 (Given - Provider: Devorah Montenegro, DANIAL) 0900 (Not Given - Provider: Nancy Han RN - Reason: Transfer to a Procedural area) guaiFENesin ER (MUCINEX) 12 hr tablet 600 mg 600 mg, Oral, 2 times daily, First dose on 12/23/22 at 0945, Until Discontinued, Do not break, chew, or crush. 0840 (Given - Provider: Amalia Mahoney LPN)2150 (Given - Provider: Kapil Sam RN) 0948 (Given - Provider: Leonard Abdullahi, Nurse Student)2014 (Given - Provider: Devorah Montenegro RN) 0900 (Not Given - Provider: Nancy Han RN - Reason: Transfer to a Procedural area) heparin (porcine) injection 5,000 Units(Linked Group 1) 5,000 Units, Subcutaneous, Every 12 hours scheduled (2 times per day), First dose on Sun12/20/22 at 0900, Until Discontinued 0840 (Given - Provider: Amalia Mahoney LPN)2150 (Given - Provider: Kapil Sam, DANIAL) 0948 (Given - Provider: Leonard Abdullahi, Nurse Student)2014 (Given - Provider: Devorah Montenegro RN) 0900 (Not Given - Provider: Nancy Han RN - Reason: Transfer to a Procedural area) ipratropium-albuterol (DUONEB) 0.5-2.5 (3) MG/3ML nebulizer solution 3 mL 3 mL, Nebulization, 2 times daily, First dose (after last modification) on 12/30/22 at 1900, Until Discontinued 0650 (Given - Provider: Marisol Cueva)1857 (Given - Provider: Yaneli Gudino) 0718 (Given - Provider: Mame Millan RRT)1853 (Given - Provider: Marisol Cueva) 0800 (Not Given - Provider: Florencia Bejarano RRT - Reason: Not in room - Comment: pt not in room) metoprolol succinate ER (TOPROL-XL) 24 hr tablet 25 mg 25 mg, Oral, Daily, First dose (after last modification) on 01/06/23 at 0900, Until Discontinued, May be split in half along the tablet score line; do not chew or crush. 0900 (Not Given - Provider: Nancy Han RN - Reason: Transfer to a Procedural area) metoprolol tartrate (LOPRESSOR) tablet 25 mg (COMPLETED) 25 mg, Oral, Once, 1 dose, On Sun01/05/23 at 1145 1156 (Given - Provider: Clarissa Isidro RN) PRN Medication Order 01/04/2023 01/05/2023 01/06/2023 acetaminophen (TYLENOL) tablet 650 mg 650 mg, Oral, Every 4 hours PRN, Mild pain (Scale 1 - 3), Starting on Sun12/20/22 at 0251, Until 01/06/23 at 1449, Maximum dose of acetaminophen is 4000 mg from all sources in 24 hours. albuterol sulfate HFA 108 (90 Base) MCG/ACT inhaler 2 puff 2 puff, Inhalation, Every 6 hours PRN, Wheezing, Starting on Sun12/22/22 at 1249, Until 01/06/23 at 1449 hydrALAZINE (APRESOLINE) injection 10 mg 10 mg, Intravenous, Every 6 hours PRN, Other, SBP>160, Starting on Tu12/26/22 at 1129, Until 01/06/23 at 1449, Monitor HR and BP before dose and 15 min after IV dose. For IV push give over 1-2 minutes=5mg/min. HYDROcodone-acetaminophen (NORCO) 5-325 MG tablet 1 tablet 1 tablet, Oral, Every 4 hours PRN, Moderate pain (Scale 4 - 7), Starting on Sun12/20/22 at 0251, Until 01/06/23 at 1449, Maximum dose of acetaminophen is 4000 mg from all sources in 24 hours. naLOXone (NARCAN) injection 0.4 mg 0.4 mg, Intravenous, As needed, Opioid reversal, Starting on Sun12/20/22 at 0251, Until 01/06/23 at 1449 normal saline 0.9 % flush 3-10 mL 3-10 mL, Intravenous, As needed, Line care, Starting on Sun12/20/22 at 0251, Until 01/06/23 at 1449 ondansetron (ZOFRAN) injection 4 mg 4 mg, Intravenous, Every 8 hours PRN, Nausea, Vomiting, Starting on Sun12/20/22 at 0251, Until 01/06/23 at 1449, IV push over 2-5 minutes. polyethylene glycol (GLYCOLAX) packet 17 g 17 g, Oral, Daily as needed, Constipation, Starting on Sun12/20/22 at 0251, Until 01/06/23 at 1449, If both senna and polyethylene glycol are ordered, use 1st; if no response by next dosing interval, go to next option. 2019 (Given - Provider: Shun Montenegro RN) polyvinyl alcohol (LIQUIFILM/ARTIFICIAL TEARS) 1.4 % ophthalmic solution 1 drop 1 drop, Both Eyes, As needed, Dry eyes, Starting on 12/23/22 at 1013, Until 01/06/23 at 1449 Linked Groups Order Group 1: heparin (porcine) injection 5,000 UnitsJump to med 5,000 Units, Subcutaneous, Every 12 hours scheduled (2 times per day), First dose on Sun12/20/22 at 0900, Until Discontinued And Moderate Risk for VTE (COMPLETED) documented in this encounter Additional Health Concerns Infection Onset Date Last Indicated Resolved Time COVID-19 Rule Out 12/23/2022 12/23/2022 12/23/2022 11:04 AM CDT documented as of this encounter Care Teams Office Agent Relationship Specialty Start Date End Date Jasson Cueva MD [address] [place] [id number] PCP - General FAMILY PRACTICE 11/03/18 Huber Milligan MD [address] [place] [phone] Consulting Physician Vascular Neurology 04/30/19 Norm Hopkins MD [address] [place] [address] Consulting Physician CLINICAL CARDIAC ELECTROPHYSIOLOGY 04/30/19 documented as of this encounter
--- OUTSIDE RECORDS SUMMARY | 2024-03-19 18:38 | XMS_ITS | Encounter Summary ---
Author Organization [facility] Address [address] [place] [address]. [place], [place] [id number] [place] [address] Care Team Providers Care Certified Energy Manager Name Role Phone Jasson Cueva MD Primary Care Provider [phone] Huber Milligan MD Unavailable [phone] Norm Hopkins MD Unavailable [phone] Reason for Referral * Imaging (Routine) - Closed Specialty Diagnoses / Procedures Referred By Contac t Referred To Contact RADIOLOGY Diagnoses Nephrotic range proteinuria Procedures US RETROPERITONEAL LTD Danya Connell PA-C [address] [place] [address] Phone: tel: fax: Referral ID Status Reason Start Date Expiration Date Visits Re quested Visits Authorized [id number] Closed 01/04/2022 01/04/2023 1 1 GATION TAX ASSESSOR COLLECTOR Reason for Visit * Imaging (Routine) - Closed Specialty Diagnoses / Procedures Referred By Contac t Referred To Contact RADIOLOGY Diagnoses Nephrotic range proteinuria Procedures US RETROPERITONEAL LTD Danya Connell PA-C [address] [place] [address] Phone: tel: fax: Referral ID Status Reason Start Date Expiration Date Visits Re quested Visits Authorized [id number] Closed 01/04/2022 01/04/2023 1 1 Encounter Details Date Type Department Care Team (Late st Contact Info) Description 02/20/2022 12:54 PM IRRIGATION TAX ASSESSOR COLLECTOR - 02/20/2022 11:59 PM IRRIGATION TAX ASSESSOR COLLECTOR Hospital Encounter [facility] [address] [place] [address] Danya Connell PA-C [address] [place] [phone] Discharge Disposition: Home or Self Care (Routine Discharge) Social History Tobacco Use Types Packs/Day Years Used Date Smoking Tobacco: Former Cigarettes Smokeless Tobacco: Never Alcohol Use Standard Drinks/Week Comments Not Currently 0 (1 standard drink = 0.6 oz pur e alcohol) Comments No Sex and Gender Information Value Date Recorded Sex Assigned at Not on file Legal 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 IRRIGATION TAX ASSESSOR COLLECTOR Gender Identity Not on file Sexual Orientation Not on file COVID-19 Exposure Response Date Recorded In the last 10 days, have yo u been in contact with someone who was confirmed or suspected to have Coronavirus/COVID-19? No / Unsure 02/20/2022 12:51 PM IRRIGATION TAX ASSESSOR COLLECTOR documented as of this encounter Functional Status [...] Name Priority Date/Time Associated Diagnosis Comments US RETROPERITONEAL LTD Routine 2 2:47 PM IRRIGATION TAX ASSESSOR COLLECTOR Nephrotic range proteinuria documented in this encounter Results * US RETROPERITONEAL LTD (02/20/2022 2:47 PM IRRIGATION TAX ASSESSOR COLLECTOR) Anatomical Region Laterality Modality Renal Ultrasound 02/21/2022 10:0 3 AM IRRIGATION TAX ASSESSOR COLLECTOR Impressions 02/21/2022 10:09 AM IRRIGATION TAX ASSESSOR COLLECTOR IMPRESSION: 1. Marked left renal atrophy, as seen on prior cross-sectional imaging. 2. The right kidney demonstrates mild cortical thinning and increased parenchymal echogenicity, nonspecific but may represent chronic underlying medical renal disease. 3. Potential tiny nonobstructing bilateral renal stones. No hydronephrosis identified. Ordered By: DANYA CONNELL Interpreted By: Brandon Dong MD, 02/21/2022 10:03 AM Narrative 02/21/2022 10:09 AM IRRIGATION TAX ASSESSOR COLLECTOR EXAMINATION: US RETROPERITONEAL LTD HISTORY: NEPHROTIC RANGE PROTEINURIA COMPARISON: MRI abdomen 04/05/2020. CT abdomen and pelvis 10/15/2015. TECHNIQUE: Grayscale and color Doppler images of the kidneys and urinary bladder were obtained. FINDINGS: The right kidney measures 10.8 cm in length and demonstrates increased parenchymal echogenicity and mild cortical thinning.Probable dromedary hump mid right kidney (image 26). Scattered echogenic foci are noted, nonspecific but could represent nonobstructing stones. No hydronephrosis. The left kidney measures 6 cm in length and demonstrates significantly increased parenchymal echogenicity and marked cortical thinning.Small 9 mm inferior pole cyst. Potential nonobstructing mid left renal stone. Image 62). The urinary bladder appears unremarkable. Bladder volume: 58 mL Procedure Note Brandon Dong MD - 02/21/2022 EXAMINATION: US RETROPERITONEAL LTD HISTORY: NEPHROTIC RANGE PROTEINURIA COMPARISON: MRI abdomen 04/05/2020. CT abdomen and pelvis 10/15/2015. TECHNIQUE: Grayscale and color Doppler images of the kidneys and urinarybladder were obtained. FINDINGS: The right kidney measures 10.8 cm in length and demonstrates increasedparenchymal echogenicity and mild cortical thinning.Probable dromedaryhump mid right kidney (image 26). Scattered echogenic foci are noted,nonspecific but could represent nonobstructing stones. Nohydronephrosis. The left kidney measures 6 cm in length and demonstrates significantlyincreased parenchymal echogenicity and marked cortical thinning.Small 9 mminferior pole cyst. Potential nonobstructing mid left renal stone. Image62). The urinary bladder appears unremarkable. Bladder volume: 58 mL IMPRESSION: 1. Marked left renal atrophy, as seen on prior cross-sectional imaging. 2. The right kidney demonstrates mild cortical thinning and increasedparenchymal echogenicity, nonspecific but may represent chronic underlyingmedical renal disease. 3. Potential tiny nonobstructing bilateral renal stones. No hydronephrosisidentified. Ordered By: DANYA CONNELL Interpreted By: Brandon Dong MD, 02/21/2022 10:03 AM us Danya Connell PA-C ULTRASOUND Final Resu lt documented in this encounter Visit Diagnoses Diagnosis Nephrotic range proteinuria Proteinuria documented in this encounter Care Teams Certified Energy Manager Relationship Specialty Start Date End Date Jasson Cueva MD [address] [place] [phone] PCP - General FAMILY PRACTICE 11/03/18 Huber Milligan MD [address] [place] [phone] Consulting Physician Vascular Neurology 04/30/19 Norm Hopkins MD [address] [place] [address] Consulting Physician CLINICAL CARDIAC ELECTROPHYSIOLOGY 04/30/19 documented as of this encounter
--- OUTSIDE RECORDS SUMMARY | 2024-03-19 18:38 | XMS_ITS | Encounter Summary ---
Author Organization [facility] Address [address] [place] [address]. [place], [place] [id number] [place] [address] Care Team Providers Care Solderer Assembly Repair Name Role Phone Jasson Cueva MD Primary Care Provider [phone] Huber Milligan MD Unavailable [phone] Norm Hopkins MD Unavailable [phone] Encounter Details Date Type Department Care Team (Latest Contact Info) Description 02/27/2023 Travel Social History Tobacco Use Types Packs/Day [...] often do you attend chur ch or muslim services? Never 12/20/2022 Do you belong to any clubs o r organizations such as uatsdin groups, unions, fraternal or athletic groups, or [...] and heating? Not hard at all 12/20/2022 [facility] [place] of Occupat ional Health - Occupational Stress [...] place to sleep or slept in a chcf (including now)? No 12/20/2022 Comments No Sex and Gender Information Value Date Recorded Sex Assigned at Not on file Legal 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 RESOURCING ADVISOR Gender Identity Not on file Sexual Orientation [...] Diagnoses Not on filedocumented in this encounter Additional Health Concerns Infection Onset Date Last Indicated Resolved Time COVID-19 Rule Out 02/27/2023 02/27/2023 02/27/2023 8:57 PM RESOURCING ADVISOR documented as of this encounter Care Teams Solderer Assembly Repair Relationship Specialty Start Date End Date Jasson Cueva MD [address] [place] [phone] PCP - General FAMILY PRACTICE 11/03/18 Huber Milligan MD [address] [place] [phone] Consulting Physician Vascular Neurology 04/30/19 Norm Hopkins MD [address] [place] [phone] Consulting Physician CLINICAL CARDIAC ELECTROPHYSIOLOGY 04/30/19 documented as of this encounter
--- OUTSIDE RECORDS SUMMARY | 2024-03-19 18:38 | XMS_ITS | Encounter Summary ---
Author Organization [facility] Address [facility]. [place], [place] [id number] [place] [phone] Care Team Providers Care Plate Inspector Name Role Phone Jasson Cueva MD Primary Care Provider Huber Milligan MD Unavailable [phone] Norm Hopkins MD Unavailable [phone] Encounter Details Date Type Department Care Team (Late st Contact Info) Description 09/05/2022 Transcribe Orders [facility] Pre Access Team [address] [place] [address] Jasson Cueva MD [address] [place] [phone] Social History Tobacco Use Types Packs/Day Years Used Date Smoking Tobacco: Former Cigarettes Smokeless Tobacco: Never Alcohol Use Standard Drinks/Week Comments Not Currently 0 (1 standard drink = 0.6 oz pur e alcohol) Comments No Sex and Gender Information Value Date Recorded Sex Assigned at Not on file Legal 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 LENS GRINDER ROUGH Gender Identity Not on file Sexual Orientation [...] on filedocumented in this encounter Care Teams Plate Inspector Relationship Specialty Start Date End Date Jasson Cueva MD [address] [place] [phone] PCP - General FAMILY PRACTICE 11/03/18 Huber Milligan MD [address] [place] [phone] Consulting Physician Vascular Neurology 04/30/19 Norm Hopkins MD [address] [place] [phone] Consulting Physician CLINICAL CARDIAC ELECTROPHYSIOLOGY 04/30/19 documented as of this encounter
--- OUTSIDE RECORDS SUMMARY | 2024-03-19 18:38 | XMS_ITS | Encounter Summary ---
Author Organization [facility] Address [address] [place] [address]. [place], [place] [address] [place] [phone] Care Team Providers Care Grocery Worker Name Role Phone Jasson Cueva MD Primary Care Provider [phone] Huber Milligan MD Unavailable [phone] Norm Hopkins MD Unavailable [phone] Encounter Details Date Type Department Care Team (Latest Contact Info) Description 12/19/2022 Travel Social History Tobacco Use Types Packs/Day [...] often do you attend chur ch or gnosticism services? Never 12/20/2022 Do you belong to any clubs o r organizations such as caodaism groups, unions, fraternal or athletic groups, or [...] heating? Not hard at all 12/20/2022 [facility] [place] of Occupat ional Health - Occupational Stress [...] place to sleep or slept in a care home (including now)? No 12/20/2022 Comments No Sex and Gender Information Value Date Recorded Sex Assigned at Not on file Legal 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 MEDICAL OFFICE CLERK Gender Identity Not on file Sexual Orientation [...] on filedocumented in this encounter Care Teams Grocery Worker Relationship Specialty Start Date End Date Jasson Cueva MD [address] [place] [phone] PCP - General FAMILY PRACTICE 11/03/18 Huber Milligan MD [address] [place] [phone] Consulting Physician Vascular Neurology 04/30/19 Norm Hopkins MD [address] [place] [phone] Consulting Physician CLINICAL CARDIAC ELECTROPHYSIOLOGY 04/30/19 documented as of this encounter
--- OUTSIDE RECORDS SUMMARY | 2024-03-19 18:38 | XMS_ITS | Encounter Summary ---
Author Organization [facility] Address [address] [place] [address]. [place] [address] [place] [address] Care Team Providers Care Shopfitter Name Role Phone Jasson Valdivia MD Primary Care Provider Huber Milligan MD Unavailable [phone] Norm Hopkins MD Unavailable [phone] Reason for Visit * Reason Comments Dialysis Shunt Problem * Auth/Cert (Routine) Specialty Diagnoses / Procedures Referred By Contac t Referred To Contact Diagnoses Complication of vascular dialysis catheter, unspecified complication, initial encounter ESRD (end stage renal disease) ([facility]/HCC HHS/HCC) ESRD (end stage renal disease) ([facility]) ([facility]) Procedures NONE Yesenia Jung MD [address] [place] [address] Phone: tel: fax: Referral ID Status Reason Start Date Expiration Date Visits Re quested Visits Authorized [id number] 1 1 Encounter Details Date Type Department Care Team (Latest Contact Info) Description 01/08/2023 3:15 PM CDT - 01/09/2023 7:13 PM CDT Hospital Encounter [facility] Med/Surg 5th [place] [address] Tomas Rowland MD [address] [place] [address] Yesenia Jung MD [address] [place], [place] [id number] Florentin Hall MD [address] [place], [place] [id number] Dialysis Shunt Problem Discharge Disposition: Shelter Facility Social History Tobacco Use Types Packs/Day [...] often do you attend chur ch or islam services? Never 12/20/2022 Do you belong to any clubs o r organizations such as tenriism groups, unions, fraternal or athletic groups, or [...] and heating? Not hard at all 12/20/2022 [employer] [place] [facility] - Occupational Stress [...] place to sleep or slept in a residential (including now)? No 12/20/2022 Comments No Sex and Gender Information Value Date Recorded Sex Assigned at Not on file Legal 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 [employer] Gender Identity Not on file Sexual Orientation Not on file documented as of this encounter Last Filed Vital Signs Vital Sign Reading Time Taken Comments Blood Pressure 92/59 01/09/2023 6:30 PM CDT Pulse 83 01/09/2023 6:30 PM CDT Temperature 37 ??C (98.6 ??F) 01/09/2023 6:30 PM CDT Respiratory Rate 18 01/09/2023 6:30 PM CDT Oxygen Saturation 95% 01/09/2023 8:41 AM CDT Inhaled Oxygen Concentration - - Weight 79.2 kg (174 lb 9.6 oz) 01/09/2023 4:13 A M CDT Height 170.2 cm (5' 7 ) 01/08/2023 3:05 PM CDT Body Mass Index 27.35 01/08/2023 3:05 PM CDT documented in this encounter Functional Status * Question Answer Date of Assessment Author Status Do you have serious difficulty walking or climbing stairs? Yes 01/08/2023 8:00 PM CDT Sara Zeng RN Acti ve * Question Answer Date of Assessment Author Status Do you have difficulty dressing or bathing? No 01/08/2023 8:00 PM CDT Sara Zeng RN Active Because of a physical, mental, or emotional condition, do you have difficulty doing errands alone such as visiting a doctor's office or shopping? No 01/08/2023 8:00 PM CDT Carter Zeng i, RN Active * Are you deaf or do you [...] 01/08/2023 8:00 PM CDT Sara Zeng R Terence Active documented as of this encounter Mental Status * Question Answer Entry Date Author Status Because of a physical, mental, or emotional condition, do you have serious difficulty concentrating, remembering, or making decisions? No 01/08/2023 8:00 PM CDT Sara Zeng RN Active * Because of a physical, mental, or emotional condition, do you have serious difficulty concentrating, remembering, or making decisions? Answer Entry Date Author Status No 01/08/2023 8:00 PM CDT Sara Zeng R N Active documented in this encounter Discharge Summaries * Florentin Hall MD - 01/09/2023 12:40 PM CDT Images from the original note were not included. Hospitalist Discharge Summary Patient ID: Trisha Waite. female. 1950. Admit date: 01/08/2023 3:15 PM Discharge date and time: 01/09/23 Admitting Physician: Yesenia Jung MD Attending Physician: Florentin Hall MD Primary Care Physician: JASSON VALDIVIA MD Discharge Physician: Florentin Hall MD Hospital Diagnosis: ESRD (end stage renal disease) ([facility]/HCC) ([facility]) Admission Condition: fair Discharged Condition: Good Code Status: Full Code Indication for Admission: Chief Complaint Patient presents with Dialysis Shunt Problem Readmission/Mortality Score at discharge: Low 0-28, Medium 29-58, High >59 LACE+ Score *This score is based on incomplete data Readmission Score: 76* Male Patient: - Urgent Admission: 15 Discharge Institution: - Length of Stay: 2 Alternative Level of Care Status: 0 ED Visits in Previous 6 Months: 3 Elective Admission in Previous Year: 6 Comorbidity Score (by age & number of urgent admissions): 50 - This score is not calculated because of inadequate data Hospital Course: 72-year-old female who has a past medical history of CKD stage 3, COPD, Depression, Displaced fracture of proximal end of right humerus (11/06/2018), HLD, Hypertension, Ischemic stroke, Neuropathy, ESRD who presents after was found to have obstructed HD access. # End-stage renal disease on hemodialysis with malfunctioning access - Nephrology consulted - Given alteplase which successfully cleared occlusion - Tolerated full HD session - Discharged after successful HD session Findings that require further workup: none Consults: nephrology Significant Diagnostic Studies: Recent Results (from the past 24 hour(s)) CBC W/DIFF AUTOMATED Collection Time: 01/08/23 3:22 PM Result Value Ref Range WBC 9.8 4.5 - 11.0 x10'3/uL RBC 4.13 (L) 4.20 - 5.40 x10'6/uL HGB 12.7 12.0 - 16.0 G/DL HCT 39.4 38.0 - 48.0 % MCV 95.4 81.0 - 99.0 FL MCH 30.8 27.0 - 31.0 PG MCHC 32.2 32.0 - 36.0 G/DL RDW 13.6 11.5 - 14.5 % PLT 208 130 - 400 x10'3/uL MPV 10.8 9.3 - 12.2 FL DIFFERENTIAL TYPE AUTOMATED DIFFERENTIAL NEUTROPHILS 68.8 % LYMPHOCYTES 17.5 % MONOCYTES 8.3 % EOSINOPHILS 4.3 % BASOPHILS 0.6 % IMMATURE GRANS 0.5 % ABS. NEUTROPHILS TOTAL 6.73 1.80 - 7.70 x10'3/uL ABS. LYMPHOCYTES 1.71 1.00 - 4.80 x10'3/uL ABS. MONOCYTES 0.81 0.24 - 0.86 x10'3/uL ABS. EOSINOPHILS 0.42 (H) 0.04 - 0.36 x10'3/uL ABS. BASOPHILS 0.06 0.01 - 0.08 x10'3/uL ABS. IMMATURE GRANULOCYTES 0.05 0.00 - 0.49 x10'3/uL COMPREHENSIVE METABOLIC PANEL Collection Time: 01/08/23 3:22 PM Result Value Ref Range GLUCOSE 100 (H) 70 - 99 MG/DL BUN 55 (H) 7 - 18 MG/DL CREATININE S/P/B 5.77 (HH) 0.55 - 1.02 MG/DL SODIUM S/P/B 132 (L) 136 - 145 MMOL/L POTASSIUM S/P/B 4.2 3.5 - 5.1 MMOL/L CHLORIDE S/P/B 98 (L) 100 - 108 MMOL/L CO2 25.1 21 - 32 MMOL/L CALCIUM S/P/B 8.9 8.5 - 10.1 MG/DL BILIRUBIN TOTAL S/P/B 0.5 0.2 - 1.2 MG/DL TOTAL PROTEIN S/P/B 7.0 6.4 - 8.2 G/DL ALBUMIN S/P/B 3.4 3.4 - 5.0 G/DL AST 18 15 - 37 U/L ALT 25 14 - 55 U/L ALKALINE PHOSPHATASE S/P/B 106 50 - 136 U/L ANION GAP 8.9 5 - 15 MMOL/L BUN CREATININE RATIO 9.5 6 - 26 A/G RATIO 0.9 (L) 1.0 - 2.0 RATIO GFR ESTIMATE 7 (L) >90 ML/MIN/1.73 M2 CBC W/DIFF AUTOMATED Collection Time: 01/09/23 4:12 AM Result Value Ref Range WBC 8.7 4.5 - 11.0 x10'3/uL RBC 3.62 (L) 4.20 - 5.40 x10'6/uL HGB 11.0 (L) 12.0 - 16.0 G/DL HCT 34.4 (L) 38.0 - 48.0 % MCV 95.0 81.0 - 99.0 FL MCH 30.4 27.0 - 31.0 PG MCHC 32.0 32.0 - 36.0 G/DL RDW 13.5 11.5 - 14.5 % PLT 206 130 - 400 x10'3/uL MPV 10.6 9.3 - 12.2 FL DIFFERENTIAL TYPE AUTOMATED DIFFERENTIAL NEUTROPHILS 65.1 % LYMPHOCYTES 19.8 % MONOCYTES 8.7 % EOSINOPHILS 5.2 % BASOPHILS 0.7 % IMMATURE GRANS 0.5 % ABS. NEUTROPHILS TOTAL 5.65 1.80 - 7.70 x10'3/uL ABS. LYMPHOCYTES 1.72 1.00 - 4.80 x10'3/uL ABS. MONOCYTES 0.75 0.24 - 0.86 x10'3/uL ABS. EOSINOPHILS 0.45 (H) 0.04 - 0.36 x10'3/uL ABS. BASOPHILS 0.06 0.01 - 0.08 x10'3/uL ABS. IMMATURE GRANULOCYTES 0.04 0.00 - 0.49 x10'3/uL BASIC METABOLIC PANEL Collection Time: 01/09/23 4:12 AM Result Value Ref Range GLUCOSE 105 (H) 70 - 99 MG/DL BUN 62 (H) 7 - 18 MG/DL CREATININE S/P/B 5.74 (HH) 0.55 - 1.02 MG/DL SODIUM S/P/B 135 (L) 136 - 145 MMOL/L POTASSIUM S/P/B 3.7 3.5 - 5.1 MMOL/L CHLORIDE S/P/B 102 100 - 108 MMOL/L CO2 23.7 21 - 32 MMOL/L CALCIUM S/P/B 8.8 8.5 - 10.1 MG/DL ANION GAP 9.3 5 - 15 MMOL/L BUN CREATININE RATIO 10.8 6 - 26 GFR ESTIMATE 7 (L) >90 ML/MIN/1.73 M2 PHOSPHORUS, INORGANIC PHOSPHATE Collection Time: 01/09/23 4:12 AM Result Value Ref Range PHOSPHORUS 6.5 (H) 2.5 - 4.9 MG/DL Radiology Reports : Radiology Results (Last 48 hours) None Discharge Exam: Filed Vitals: 01/08/23 2026 01/09/23 0409 01/09/23 0413 01/09/23 0841 BP: 101/70 104/66 105/72 Pulse: 86 78 84 Resp: 16 16 16 Temp: 98.5 ??F (36.9 ??C) 98.2 ??F (36.8 ??C) 98.1 ??F (36.7 ??C) TempSrc: Oral Oral Oral SpO2: 93% 95% 95% Weight: 79.2 kg (174 lb 9.6 oz) Height: Physical Exam Vitals reviewed. Constitutional: General: She is not in acute distress. Appearance: Normal appearance. Cardiovascular: Rate and Rhythm: Normal rate and regular rhythm. Heart sounds: Normal heart sounds. No murmur heard. No gallop. Pulmonary: Effort: Pulmonary effort is normal. Breath sounds: Normal breath sounds. Abdominal: General: Abdomen is flat. Bowel sounds are normal. There is no distension. Palpations: Abdomen is soft. Tenderness: There is no abdominal tenderness. Skin: General: Skin is warm and dry. Neurological: General: No focal deficit present. Mental Status: She is alert and oriented to person, place, and time. Discharge Medications: Medication List ASK your doctor about these medications Morning Afternoon Evening Bedtime As Needed amLODIPine 5 MG tablet Commonly known as: NORVASC 1 tablet (5 mg total) daily. Last time this was given: 5 mg on January 09, 2023 9:20 AM aspirin EC 81 MG tablet Commonly known as: ECOTRIN Take 1 tablet (81 mg total) by mouth daily. Last time this was given: 81 mg on January 09, 2023 9:20 AM furosemide 20 MG tablet Commonly known as: LASIX Take 1 tablet (20 mg total) by mouth every other day for 30 days. Last time this was given: 20 mg on January 09, 2023 9:21 AM Signed by: Dr. Ajit Salmon MD gabapentin 100 MG capsule Commonly known as: NEURONTIN Take 1 capsule (100 mg total) by mouth 3 (three) times daily for 60 days. Last time this was given: 100 mg on January 09, 2023 9:20 AM Signed by: Dr. Francisco Franklin MD HYDROcodone-acetaminophen 5-325 MG tablet Commonly known as: NORCO Take 1 tablet by mouth every 6 (six) hours as needed. Indications: Acute Pain < 7 Day Supply Signed by: Dr. Ajit Salmon MD metoprolol succinate ER 25 MG 24 hr tablet Commonly known as: TOPROL-XL Take 1 tablet (25 mg total) by mouth daily for 30 days. Last time this was given: 25 mg on January 09, 2023 9:20 AM Signed by: Dr. Ajit Salmon MD vitamin D3 (cholecalciferol) 125 mcg capsule Take 1 capsule (125 mcg total) by mouth daily. Last time this was given: Ask your nurse or doctor Disposition: Shelter Facility Time Spent on Discharge: more than 30 minutes Signed: Florentin Hall MD documented in this encounter Discharge Instructions * Attachments The following attachments cannot be sent through Care Everywhere. * Chronic kidney disease (German) documented in this encounter Medications at Time [...] capsule (125 mcg total) by mouth daily. B vvrdivf-G-aojku acid 0.8 mg (DIALYVITE/NEPHRO -TAN) Tab tabletIndications :ESRD (end stage renal disease) ([facility]) Take 1 tablet by mouth daily for 30 days. 30 tablet 01/10/2023 02/09/2023 calcium carbonate (TUMS) 500 MG chewable tabletIndications :Hyperphosphatemi a Chew 1 tablet (500 mg total) by mouth 3 (three) times daily before meals for 30 days. 90 tablet 01/10/2023 02/09/2023 furosemide (LASIX) 20 MG tablet Take 1 [...] as of this encounter Progress Notes * Violet Montoya LCSW - 01/09/2023 1:17 PM CDT Pt is from [facility] and will return at [facility], anticipated later today after dialysis. Per Leatha at [facility], she is agreeable to this plan. Pt is on the 6pm medvan. No other needs noted. * Eliel Weiner - 01/09/2023 12:25 PM CDT Patient booked with [facility] for [address] [facility] left with director of community education BANK EXAMINER Violet Montoya informed * Elvin Collier MD - 01/09/2023 6:00 AM CDT Trisha Waite is a 72-year-old female patient. Reason for Follow Up: ESRD on HD Subjective: Mrs. Waite is feeling alright. No dizziness, headache, cough, fever, CP, SOB, nausea or vomiting. No diarrhea Current Facility-Administered Medications Medication Dose Route Frequency Provider Last Rate Last Admin amLODIPine (NORVASC) tablet 5 mg 5 mg Oral Daily Yesenia Jung MD aspirin EC (ECOTRIN) tablet 81 mg 81 mg Oral Daily Yesenia Jung MD 81 mg at 01/08/232034 [START ON 01/09/2023] furosemide (LASIX) tablet 20 mg 20 mg Oral Q48H Yesenia Jung MD gabapentin (NEURONTIN) capsule 100 mg 100 mg Oral TID Yesenia Jung MD 100 mg at 01/08/232034 HYDROcodone-acetaminophen (NORCO) 5-325 MG tablet 1 tablet 1 tablet Oral Q6H PRN Yesenia Jung MD [START ON 01/09/2023] influenza virus vaccine (QUAD) injection 0.5 mL 0.5 mL Intramuscular Once Yesenia Jung MD metoprolol succinate ER (TOPROL-XL) 24 hr tablet 25 mg 25 mg Oral Daily Yesenia Jung MD vitamin D3 (cholecalciferol) tablet 125 mcg 125 mcg Oral Daily Yesenia Jung MD 125 mcg at 01/08/232034 No Known Allergies Principal Problem: ESRD (end stage renal disease) ([facility]/HCC) ([facility]/HCC) SNOMED CT(R): END-STAGE RENAL DISEASE Social History Tobacco Use Smoking status: Former Packs/day: 1.00 Types: Cigarettes Smokeless tobacco: Never Substance Use Topics Alcohol use: Not Currently Objective: Filed Vitals: 01/08/23 1505 01/08/232025 BP: 116/84 101/70 Pulse: 81 86 Resp: 16 16 Temp: 98.2 ??F (36.8 ??C) 98.5 ??F (36.9 ??C) TempSrc: Temporal Oral SpO2: 97% 93% Weight: 77.1 kg (170 lb) Height: 1.702 m (5' 7 ) Physical Exam: -GENERAL: No acute distress, breathing comfortably on room air. -EYES: Extraocular movements intact -LUNG: Clear to auscultation bilaterally -CVS: Regular rate rhythm, S1 and S2 normal, No murmurs, -ABDOMEN: Soft, nondistended, Nontender -Musculoskeletal / EXT: no lower Ext edema. -NEURO: Alert, awake, oriented x3, No gross neuro deficit LABs Recent Labs Lab 01/02/2339901/03/2341601/04/23 0601/05/2341601/06/23 0444 01/08/23 1522 NA 139 137 138 135* -- 132* K 4.2 3.5 3.7 4.1 -- 4.2 CL 108* 102 106 97* -- 98* CO2 22.7 27.7 25.6 29.6 -- 25.1 AGAP 8.3 7.3 6.4 8.4 -- 8.9 BUN 38* 25* 39* 28* -- 55* CR 4.04* 3.26* 4.37* 4.07* -- 5.77* BUNCREATININ -- -- -- -- -- 9.5 GLU 105 105 111* 115* -- 100* CA 8.8 9.0 8.7 9.0 -- 8.9 MAGNESIUM 2.2 2.4 2.4 2.5 2.4 -- PHOS 5.9* 5.0* 5.8* 5.9* 5.1* 6.7* -- Recent Labs Lab 01/02/2339901/03/2341601/08/23 1522 WBC 9.83 8.19 9.8 RBC 3.90* 3.91* 4.13* HGB 11.7* 11.8* 12.7 HCT 36.9 37.2 39.4 MCV 94.6 95.1 95.4 MCH 30.0 30.2 30.8 MCHC 31.7* 31.7* 32.2 PLT 233 204 208 RDW 13.6 13.6 13.6 MPV 10.5* 10.5* 10.8 Assessment/Plan: Mrs. Waite with PMHx of ESRD on HD MWF recently started, COPD, Hypertension, neuropathy, HLD -patient reported that she was recently admitted and was found to be in renal failure for which hada perm cath placed and received 3 dialysis session inpatient. Today her dialysis catheter did not function for which presented here. ---ESRD on chronic HD x3/week MWF. Yesterday perm cath did not function. Today the dialysis nurse placed a tpa dwell in the catheter lumen and after an hour or more it checked again; the arterial lumen is flushing fine, the venous is pushing fine but suction is sluggish but better than prio to tpa.Plan for HD today and if not working well then will consult IR for line change. On lasix 20mg on non-dialysis days??; adjusting to 80mg. Adding nephrocap ---Hypertension; on metoprolol, norvasc ---renal osteodystrophy; phos at 6.7; adding tums with meals ELVIN COLLIER MD 01/08/2023 documented in this encounter H&P Notes * Yesenia Jung MD - 01/08/2023 7:29 PM CDT Patient Name: Trisha Waite Date of : 1950 Date of Admission: 01/08/2023 Date of Service: 01/08/2023 Admitting Physician: History of Present Illness: Chief Complaints: Dialysis Shunt Problem Trisha Waite very pleasant 72-year-old female who has a past medical history of CKD (chronic kidney disease) stage 3, GFR 30-59 ml/min ([facility]), COPD (chronic obstructive pulmonary disease) ([facility]) ([facility]), Depression, Displaced fracture of proximal end of right humerus (11/06/2018), HLD (hyp erlipidemia), Hypertension, Ischemic stroke ([facility]/HCC) ([facility]/HCC), Neuropathy, and UTI (urinary tractinfection). Patient has end-stage renal disease recently started on dialysis, today after dialysis patient was found to have obstructed right arm, patient was sent to the hospital for a new access by IR Patient denies shortness of breath chest pain fever or chills Review of Systems: CONSTITUTIONAL: No recent weight loss, fever, or vertigo. EYES: No recent change in visual acuity. No pain with eye movements. MOUTH: No dentition problems or swallowing difficulties. EARS: No tinnitus or recent change in hearing. NOSE: No rhinorrhea or epistaxis. ENDOCRINE: No intolerance to heat or cold. No excessive thirst or polyuria. CARDIAC: No recent chest pain, pressure, or palpitations. PULMONARY: No recent cough, orthopnea, or dyspnea on exertion. GASTROINTESTINAL: No heartburn, abdominal pain, melena or hematochezia. NEUROLOGIC: No paresthesias, changes in sensation, vertigo, or loss of balance. GENITOURINARY: No dysuria or hematuria. MUSCULOSKELETAL: No joint pain or muscle weakness. DERMATOLOGIC: No new or changing skin lesions or rashes. History: Past Medical History: Diagnosis Date CKD (chronic kidney disease) stage 3, GFR 30-59 ml/min ([facility]) COPD (chronic obstructive pulmonary disease) ([facility]) ([facility]) Depression Displaced fracture of proximal end of right humerus 11/06/2018 HLD (hyperlipidemia) Hypertension Ischemic stroke ([facility]) ([facility]) Neuropathy UTI (urinary tract infection) Past Surgical History: Procedure Laterality Date DIALYSIS ACCESS SYSTEM Right JOINT REPLACEMENT SHOULDER SURGERY TOTAL HIP ARTHROPLASTY bilateral Social History Tobacco Use Smoking status: Former Packs/day: 1.00 Types: Cigarettes Smokeless tobacco: Never Substance Use Topics Alcohol use: Not Currently Family History Problem Relation Name Age of Onset Heart Attack Mother Current Facility-Administered Medications Medication Dose Route Frequency Provider Last Rate Last Admin amLODIPine (NORVASC) tablet 5 mg 5 mg Oral Daily Yesenia Jung MD aspirin EC (ECOTRIN) tablet 81 mg 81 mg Oral Daily Yesenia Jung MD [START ON 01/09/2023] furosemide (LASIX) tablet 20 mg 20 mg Oral Q48H Yesenia Jung MD gabapentin (NEURONTIN) capsule 100 mg 100 mg Oral TID Yesenia Jung MD HYDROcodone-acetaminophen (NORCO) 5-325 MG tablet 1 tablet 1 tablet Oral Q6H PRN Yesenia Jung MD metoprolol succinate ER (TOPROL-XL) 24 hr tablet 25 mg 25 mg Oral Daily Yesenia Jung MD vitamin D3 (cholecalciferol) tablet 125 mcg 125 mcg Oral Daily Yesenia Jung MD No Known Allergies Physical Exam: VITALS: Patient Vitals for the past 8 hrs: BP Temp Temp src Pulse Resp SpO2 Height Weight 01/08/23 1505 116/84 98.2 ??F (36.8 ??C) Temporal 81 16 97 % 1.702 m (5' 7 ) 77.1 kg (170 lb) No intake or output data in the 24 hours ending 01/08/231928 CARDIAC: Regular rate and rhythm. No murmurs, rubs, clicks, or gallops were heard. PULMONARY: Normal rise and fall of chest bilaterally equal: Clear to auscultation bilaterally. Lungsounds heard in all ames. No wheezes, crackles, or rhonchi were heard. CHEST: Non-tender. No palpable masses. ABDOMEN: Soft. Non-tender. Normal bowel sounds. No palpable masses, hepatomegaly or splenomegaly. EXTREMITIES: No peripheral edema. Good pulses in all distal extremities. PSYCHIATRIC: Normal affect. No acute distress. NEUROLOGIC: Conscious, alert, oriented to person place, time, and situation. Cranial nerves II-XII are grossly intact, and 5/5 strength present in all distal extremities. HEAD: Normocephalic. Without trauma. EARS: No discharge. Hearing intact to voice. NOSE: Nares open; no septal deviation is noted. THROAT: Normal mucosa, no discharge. EYES: Pupils are equal, round, reactive to light and accommodation. No icterus. SKIN: Warm. Dry. Normal color and texture. No rashes. Laboratory Findings: Results for orders placed or performed during the hospital encounter of 01/08/23 CBC W/DIFF AUTOMATED Result Value Ref Range WBC 9.8 4.5 - 11.0 x10'3/uL RBC 4.13 (L) 4.20 - 5.40 x10'6/uL HGB 12.7 12.0 - 16.0 G/DL HCT 39.4 38.0 - 48.0 % MCV 95.4 81.0 - 99.0 FL MCH 30.8 27.0 - 31.0 PG MCHC 32.2 32.0 - 36.0 G/DL RDW 13.6 11.5 - 14.5 % PLT 208 130 - 400 x10'3/uL MPV 10.8 9.3 - 12.2 FL DIFFERENTIAL TYPE AUTOMATED DIFFERENTIAL NEUTROPHILS 68.8 % LYMPHOCYTES 17.5 % MONOCYTES 8.3 % EOSINOPHILS 4.3 % BASOPHILS 0.6 % IMMATURE GRANS 0.5 % ABS. NEUTROPHILS TOTAL 6.73 1.80 - 7.70 x10'3/uL ABS. LYMPHOCYTES 1.71 1.00 - 4.80 x10'3/uL ABS. MONOCYTES 0.81 0.24 - 0.86 x10'3/uL ABS. EOSINOPHILS 0.42 (H) 0.04 - 0.36 x10'3/uL ABS. BASOPHILS 0.06 0.01 - 0.08 x10'3/uL ABS. IMMATURE GRANULOCYTES 0.05 0.00 - 0.49 x10'3/uL COMPREHENSIVE METABOLIC PANEL Result Value Ref Range GLUCOSE 100 (H) 70 - 99 MG/DL BUN 55 (H) 7 - 18 MG/DL CREATININE S/P/B 5.77 (HH) 0.55 - 1.02 MG/DL SODIUM S/P/B 132 (L) 136 - 145 MMOL/L POTASSIUM S/P/B 4.2 3.5 - 5.1 MMOL/L CHLORIDE S/P/B 98 (L) 100 - 108 MMOL/L CO2 25.1 21 - 32 MMOL/L CALCIUM S/P/B 8.9 8.5 - 10.1 MG/DL BILIRUBIN TOTAL S/P/B 0.5 0.2 - 1.2 MG/DL TOTAL PROTEIN S/P/B 7.0 6.4 - 8.2 G/DL ALBUMIN S/P/B 3.4 3.4 - 5.0 G/DL AST 18 15 - 37 U/L ALT 25 14 - 55 U/L ALKALINE PHOSPHATASE S/P/B 106 50 - 136 U/L ANION GAP 8.9 5 - 15 MMOL/L BUN CREATININE RATIO 9.5 6 - 26 A/G RATIO 0.9 (L) 1.0 - 2.0 RATIO GFR ESTIMATE 7 (L) >90 ML/MIN/1.73 M2 Assessment and Plan: End-stage renal disease on hemodialysis with malfunctioning access (obstructed right arm ) : IR consult called for new access placement dialysis to be resumed by nephrology Chronic patient hypertension resume home medications and monitor blood pressure closely History of neuropathy resume gabapentin Vitamin D deficiency GI/DVT prophylaxis : SCD Code status : Full code as per patient case was also discussed with ER Physician I anticipate the patient will require < 2 nights of hospitalization. CC: JASSON VALDIVIA MD documented in this encounter Consult Notes * Elvin Collier MD - 01/08/2023 5:07 PM CDTAssociated Order(s): IP CONSULT TO NEPHROLOGY Nephrology Consult Note Attending Provider: Yesenia Jung MD PCP: JASSON VALDIVIA MD Trisha Waite is an 72-year-old female. Reason for Admission: ESRD (end stage renal disease) ([facility]) ([facility]) Malfunctioning dialysis catheter Reason for Consult: ESRD on HD HPI: Mrs. Waite with PMHx of ESRD on HD MWF recently started, COPD, Hypertension, neuropathy, HLD -patient reported that she was recently admitted and was found to be in renal failure for which hada perm cath placed and received 3 dialysis session inpatient. She reported to her dialysis unit today to receive HD but her cathter did not work for which presented today. She denied cough, fever, CP, SOB, abdominal pain, nausea, vomiting, diarrhea, hematuria, dizziness or headache. Home medications includes but not limited to metoprolol 25mg daily, norvasc 5mg daily, lasix 20mg EOD, ASA, gabapentin, vitD Past Medical History: Diagnosis Date CKD (chronic kidney disease) stage 3, GFR 30-59 ml/min ([facility]) COPD (chronic obstructive pulmonary disease) ([facility]) ([facility]) Depression Displaced fracture of proximal end of right humerus 11/06/2018 HLD (hyperlipidemia) Hypertension Ischemic stroke ([facility]) ([facility] Neuropathy UTI (urinary tract infection) Allergies: Review of patient's allergies indicates: No Known Allergies Social History Tobacco Use Smoking status: Former Packs/day: 1.00 Types: Cigarettes Smokeless tobacco: Never Substance Use Topics Alcohol use: Not Currently Past Surgical History: Procedure Laterality Date DIALYSIS [...] mouth every other day for 30 days. gabapentin (NEURONTIN) 100 MG capsule Take 1 capsule (100 mg total) by mouth 3 (three) times daily for 60 days. vitamin D3, cholecalciferol, 5000 UNITS capsule Take 1 capsule (125 mcg total) by mouth daily. HYDROcodone-acetaminophen (NORCO) 5-325 MG tablet Take 1 tablet by mouth every 6 (six) hours as needed. Indications: Acute Pain < 7 Day Supply (Patient taking differently: Take 1 tablet by mouth every 6 (six) hours as needed for Pain. Indications: Acute Pain < 7 Day Supply) metoprolol succinate ER (TOPROL-XL) 25 MG 24 hr tablet Take 1 tablet (25 mg total) by mouth daily for 30 days. There are no discontinued medications. Current Facility-Administered Medications Medication Dose Route Frequency Provider Last Rate Last Admin amLODIPine (NORVASC) tablet 5 mg 5 mg Oral Daily Yesenia Jung MD aspirin EC (ECOTRIN) tablet 81 mg 81 mg Oral Daily Yesenia Jung MD 81 mg at 01/08/232034 [START ON 01/09/2023] furosemide (LASIX) tablet 20 mg 20 mg Oral Q48H Yesenia Jung MD gabapentin (NEURONTIN) capsule 100 mg 100 mg Oral TID Yesenia Jung MD 100 mg at 01/08/232034 HYDROcodone-acetaminophen (NORCO) 5-325 MG tablet 1 tablet 1 tablet Oral Q6H PRN Yesenia Jung MD [START ON 01/09/2023] influenza virus vaccine (QUAD) injection 0.5 mL 0.5 mL Intramuscular Once Yesenia Jung MD metoprolol succinate ER (TOPROL-XL) 24 hr tablet 25 mg 25 mg Oral Daily Yesenia Jung MD vitamin D3 (cholecalciferol) tablet 125 mcg 125 mcg Oral Daily Yesenia Jung MD 125 mcg at 01/08/232034 Review of Systems: -General: Negative for fever, chills, malaise, or fatigue. -Eyes: Negative for eye pain, eye redness, eye discharge or itchiness. -Cardiovascular: Negative for chest pain, palpitation, lower Ext. edema or lightheadedness. -Respiratory: Negative for shortness of breath, cough, or hemoptysis. -Gastrointestinal: Negative for abdominal pain, Nausea, vomiting, diarrhea, constipation, hematemesis, or hematochezia. -Genitourinary: Negative for dysuria, frequency, nocturia, polyuria, or hematuria. -Musculoskeletal: Negative for joint pain, back pain, joint swelling -Neurological: Negative for headache, confusion, dizziness, numbness, weakness -Hematologic: Negative for jaundice, easy bleeding Vitals: Blood pressure 101/70, pulse 86, temperature 98.5 ??F (36.9 ??C), temperature source Oral, resp. rate 16, height 1.702 m (5' 7 ), weight 77.1 kg (170 lb), SpO2 93 %. Physical Exam: -GENERAL: No acute distress, breathing comfortably on room air. -EYES: Extraocular movements intact -LUNG: Clear to auscultation bilaterally, No wheezes, No crackles -CVS: Regular rate rhythm, S1 and S2 normal -ABDOMEN: Soft, nondistended, Nontender -Musculoskeletal / EXT: no lower Ext edema. -NEURO: Alert, awake, oriented x3, No gross neuro deficit LABs Recent Labs Lab 01/02/23 0400 01/03/23 0417 01/04/23 0624 01/05/23 0417 01/06/23 0444 01/08/23 1522 NA 139 137 138 135* -- 132* K 4.2 3.5 3.7 4.1 -- 4.2 CL 108* 102 106 97* -- 98* CO2 22.7 27.7 25.6 29.6 -- 25.1 AGAP 8.3 7.3 6.4 8.4 -- 8.9 BUN 38* 25* 39* 28* -- 55* CR 4.04* 3.26* 4.37* 4.07* -- 5.77* BUNCREATININ -- -- -- -- -- 9.5 GLU 105 105 111* 115* -- 100* CA 8.8 9.0 8.7 9.0 -- 8.9 MAGNESIUM 2.2 2.4 2.4 2.5 2.4 -- PHOS 5.9* 5.0* 5.8* 5.9* 5.1* 6.7* -- Recent Labs Lab 01/02/23 0400 01/03/23 0417 01/08/23 1522 WBC 9.83 8.19 9.8 RBC 3.90* 3.91* 4.13* HGB 11.7* 11.8* 12.7 HCT 36.9 37.2 39.4 MCV 94.6 95.1 95.4 MCH 30.0 30.2 30.8 MCHC 31.7* 31.7* 32.2 PLT 233 204 208 RDW 13.6 13.6 13.6 MPV 10.5* 10.5* 10.8 Assessment/Plan: Mrs. Waite with PMHx of ESRD on HD MWF recently started, COPD, Hypertension, neuropathy, HLD -patient reported that she was recently admitted and was found to be in renal failure for which hada perm cath placed and received 3 dialysis session inpatient. Today her dialysis catheter did not function for which presented here. ---ESRD on chronic HD x3/week MWF. Today catheter did not functions for which did not receive HD. IR consulted to check on the dialysis catheter. Plan on HD following. On lasix ---Hypertension; on metoprolol, norvasc ---Anemia ---renal osteodystrophy; checking phos level Thank you for allowing me to participate in the care of this patient. We will continue to follow this patient with you. Please contact us with further questions. ELVIN COLLIER MD 01/08/2023 documented in this encounter Nursing Notes * Mai Gaspar RN - 01/09/2023 3:15 PM CDT Son Zack notified patient is in dialysis and will be returning to [facility] this evening. * Mai Gaspar RN - 01/09/2023 2:49 PM CDT Called son to update him on patient plan of care and possible discharge. No answer. documented in this encounter ED Notes * Tomas Rowland MD - 01/08/2023 4:15 PM CDT Chief Complaint Chief Complaint Patient presents with Dialysis Shunt Problem History of Present Illness This patient is a 72yo female with PMH HTN, HFpEF, ESRD (MWF HD -- [facility]) who presents to the ED for evaluation of a nonfunctional HD catheter. She underwent placement of a right IJ tunneled HD catheter 12/29 for institution of HD. Today, the patient presented to outpatient HD, and the catheter was found to be nonfunctioning. So, she was referred to the ED. The patient has otherwise been well and denies any complaint. Medical History ALLERGIES: Review of patient's allergies [...] mouth every other day for 30 days. 01/06/23 02/05/23 Yes Ajit Salmon MD gabapentin (NEURONTIN) 100 MG capsule Take 1 capsule (100 mg total) by mouth 3 (three) times daily for 60 days. 01/02/23 03/03/23 Yes Francisco Franklin MD vitamin D3, cholecalciferol, 5000 UNITS capsule Take 1 capsule (125 mcg total) by mouth daily. Yes Doc [facility] HYDROcodone-acetaminophen (NORCO) 5-325 MG tablet Take 1 tablet by mouth every 6 (six) hours as needed. Indications: Acute Pain < 7 Day Supply Patient taking differently: Take 1 tablet by mouth every 6 (six) hours as needed for Pain. Indications: Acute Pain < 7 Day Supply 01/05/23 Ajit Salmon MD metoprolol succinate ER (TOPROL-XL) 25 MG 24 hr tablet Take 1 tablet (25 mg total) by mouth daily for 30 days. 01/06/23 02/05/23 Ajit Salmon MD PAST MEDICAL HISTORY: Past Medical History: Diagnosis Date CKD (chronic kidney disease) stage 3, GFR 30-59 ml/min ([facility]) COPD (chronic obstructive pulmonary disease) ([facility]) ([facility]) Depression Displaced fracture of proximal end of right humerus 11/06/2018 HLD (hyperlipidemia) Hypertension Ischemic stroke ([facility]) ([facility]) Neuropathy UTI (urinary tract infection) PAST SURGICAL HISTORY: Past Surgical History: Procedure Laterality Date DIALYSIS ACCESS SYSTEM Right JOINT REPLACEMENT SHOULDER SURGERY TOTAL HIP ARTHROPLASTY bilateral FAMILY HISTORY: Family History Problem Relation Name Age of Onset Heart Attack Mother SOCIAL HISTORY: Social History Tobacco Use Smoking status: Former Packs/day: 1.00 Types: Cigarettes Smokeless tobacco: Never Vaping Use Vaping Use: Never used Substance Use Topics Alcohol use: Not Currently Drug use: Yes Types: Marijuana Review of Systems Review of Systems Constitutional: Negative. Respiratory: Negative. Cardiovascular: Negative. Musculoskeletal: Negative. Skin: Negative. All other systems reviewed and are negative. Physical Exam Filed Vitals: 01/08/23 2026 01/09/23 0409 01/09/23 0413 01/09/23 0841 BP: 101/70 104/66 105/72 Pulse: 86 78 84 Resp: 16 16 16 Temp: 98.5 ??F (36.9 ??C) 98.2 ??F (36.8 ??C) 98.1 ??F (36.7 ??C) TempSrc: Oral Oral Oral SpO2: 93% 95% 95% Weight: 79.2 kg (174 lb 9.6 oz) Height: Physical Exam Vitals and nursing note reviewed. Constitutional: Appearance: Normal appearance. She is well-developed. HENT: Head: Normocephalic and atraumatic. Nose: Nose normal. Mouth/Throat: Mouth: Mucous membranes are moist. Eyes: Conjunctiva/sclera: Conjunctivae normal. Pupils: Pupils are equal, round, and reactive to light. Neck: Vascular: No JVD. Trachea: No tracheal deviation. Cardiovascular: Rate and Rhythm: Normal rate and regular rhythm. Pulmonary: Effort: Pulmonary effort is normal. Comments: Right IJ tunneled HD catheter. Site C/D/I without evidence of infection. Abdominal: General: There is no distension. Palpations: Abdomen is soft. There is no mass. Tenderness: There is no abdominal tenderness. There is no guarding or rebound. Musculoskeletal: General: Normal range of motion. Cervical back: Normal range of motion and neck supple. Skin: General: Skin is warm and dry. Capillary Refill: Capillary refill takes less than 2 seconds. Neurological: General: No focal deficit present. Mental Status: She is alert and oriented to person, place, and time. Sensory: No sensory deficit. Motor: No weakness. Diagnostic Studies / Procedures ELECTROCARDIOGRAMS: No results found for this visit on 01/08/23. LABORATORY STUDIES: Results for orders placed or performed during the hospital encounter of 01/08/23 CBC W/DIFF AUTOMATED Result Value Ref Range WBC 9.8 4.5 - 11.0 x10'3/uL RBC 4.13 (L) 4.20 - 5.40 x10'6/uL HGB 12.7 12.0 - 16.0 G/DL HCT 39.4 38.0 - 48.0 % MCV 95.4 81.0 - 99.0 FL MCH 30.8 27.0 - 31.0 PG MCHC 32.2 32.0 - 36.0 G/DL RDW 13.6 11.5 - 14.5 % PLT 208 130 - 400 x10'3/uL MPV 10.8 9.3 - 12.2 FL DIFFERENTIAL TYPE AUTOMATED DIFFERENTIAL NEUTROPHILS 68.8 % LYMPHOCYTES 17.5 % MONOCYTES 8.3 % EOSINOPHILS 4.3 % BASOPHILS 0.6 % IMMATURE GRANS 0.5 % ABS. NEUTROPHILS TOTAL 6.73 1.80 - 7.70 x10'3/uL ABS. LYMPHOCYTES 1.71 1.00 - 4.80 x10'3/uL ABS. MONOCYTES 0.81 0.24 - 0.86 x10'3/uL ABS. EOSINOPHILS 0.42 (H) 0.04 - 0.36 x10'3/uL ABS. BASOPHILS 0.06 0.01 - 0.08 x10'3/uL ABS. IMMATURE GRANULOCYTES 0.05 0.00 - 0.49 x10'3/uL COMPREHENSIVE METABOLIC PANEL Result Value Ref Range GLUCOSE 100 (H) 70 - 99 MG/DL BUN 55 (H) 7 - 18 MG/DL CREATININE S/P/B 5.77 (HH) 0.55 - 1.02 MG/DL SODIUM S/P/B 132 (L) 136 - 145 MMOL/L POTASSIUM S/P/B 4.2 3.5 - 5.1 MMOL/L CHLORIDE S/P/B 98 (L) 100 - 108 MMOL/L CO2 25.1 21 - 32 MMOL/L CALCIUM S/P/B 8.9 8.5 - 10.1 MG/DL BILIRUBIN TOTAL S/P/B 0.5 0.2 - 1.2 MG/DL TOTAL PROTEIN S/P/B 7.0 6.4 - 8.2 G/DL ALBUMIN S/P/B 3.4 3.4 - 5.0 G/DL AST 18 15 - 37 U/L ALT 25 14 - 55 U/L ALKALINE PHOSPHATASE S/P/B 106 50 - 136 U/L ANION GAP 8.9 5 - 15 MMOL/L BUN CREATININE RATIO 9.5 6 - 26 A/G RATIO 0.9 (L) 1.0 - 2.0 RATIO GFR ESTIMATE 7 (L) >90 ML/MIN/1.73 M2 CBC W/DIFF AUTOMATED Result Value Ref Range WBC 8.7 4.5 - 11.0 x10'3/uL RBC 3.62 (L) 4.20 - 5.40 x10'6/uL HGB 11.0 (L) 12.0 - 16.0 G/DL HCT 34.4 (L) 38.0 - 48.0 % MCV 95.0 81.0 - 99.0 FL MCH 30.4 27.0 - 31.0 PG MCHC 32.0 32.0 - 36.0 G/DL RDW 13.5 11.5 - 14.5 % PLT 206 130 - 400 x10'3/uL MPV 10.6 9.3 - 12.2 FL DIFFERENTIAL TYPE AUTOMATED DIFFERENTIAL NEUTROPHILS 65.1 % LYMPHOCYTES 19.8 % MONOCYTES 8.7 % EOSINOPHILS 5.2 % BASOPHILS 0.7 % IMMATURE GRANS 0.5 % ABS. NEUTROPHILS TOTAL 5.65 1.80 - 7.70 x10'3/uL ABS. LYMPHOCYTES 1.72 1.00 - 4.80 x10'3/uL ABS. MONOCYTES 0.75 0.24 - 0.86 x10'3/uL ABS. EOSINOPHILS 0.45 (H) 0.04 - 0.36 x10'3/uL ABS. BASOPHILS 0.06 0.01 - 0.08 x10'3/uL ABS. IMMATURE GRANULOCYTES 0.04 0.00 - 0.49 x10'3/uL BASIC METABOLIC PANEL Result Value Ref Range GLUCOSE 105 (H) 70 - 99 MG/DL BUN 62 (H) 7 - 18 MG/DL CREATININE S/P/B 5.74 (HH) 0.55 - 1.02 MG/DL SODIUM S/P/B 135 (L) 136 - 145 MMOL/L POTASSIUM S/P/B 3.7 3.5 - 5.1 MMOL/L CHLORIDE S/P/B 102 100 - 108 MMOL/L CO2 23.7 21 - 32 MMOL/L CALCIUM S/P/B 8.8 8.5 - 10.1 MG/DL ANION GAP 9.3 5 - 15 MMOL/L BUN CREATININE RATIO 10.8 6 - 26 GFR ESTIMATE 7 (L) >90 ML/MIN/1.73 M2 PHOSPHORUS, INORGANIC PHOSPHATE Result Value Ref Range PHOSPHORUS 6.5 (H) 2.5 - 4.9 MG/DL IMAGING STUDIES IR CONSULT (Results Pending) ED Course / Medical Decision Making The patient rested comfortably throughout her ED stay. Labwork reveals normal potassium. Case d/w Dr. Davison and Jayme who will consult. Plan for admission for line replacement and HD. Case d/w hospitalist. Medical Decision Making Problems Addressed: Complication of vascular dialysis catheter, unspecified complication, initial encounter: acute illness or injury Amount and/or Complexity of Data Reviewed Labs: ordered. Decision-making details documented in ED Course. Discussion of management or test interpretation with external provider(s): Jayme Davison, Hospitalist Risk Decision regarding hospitalization. Clinical Impression Complication of vascular dialysis catheter, unspecified complication, initial encounter (Primary) Disposition: Admit Tomas Rowland MD 01/09/23 1215 * Jennifer Cortes RN - 01/08/2023 3:46 PM CDT Per pt son, pt dialysis fistula is new. Device was placed with in the past 2 weeks at [facility]. Fistula has been used 3-4 times without problem per son. * Terrie Bray RN - 01/08/2023 3:09 PM CDT Pt from [facility] [place] with c/o dialysis catheter not working. Per Dr. Guerrero he requests the catheter exchange or alteplase ( they are out). Pt has no complaints. * Kevin Thomas PA-C - 01/08/2023 3:09 PM CDTSummary: dialysis concern [place], [place] EMERGENCY DEPARTMENT ENCOUNTER Medical Screening Examination 01/08/23 3:10 PM Chief Complaint : Evaluation Of Abnormal Diagnostic Test HPI : Trisha Waite is a 72-year-old female who presents c/o obstructed right arm dialysis site today. Did not receive dialsysis Vital Signs: Filed Vitals: 01/08/23 1505 BP: 116/84 Pulse: 81 Resp: 16 Temp: 98.2 ??F (36.8 ??C) TempSrc: Temporal SpO2: 97% Weight: 77.1 kg (170 lb) Height: 1.702 m (5' 7 ) Physical exam: A brief physical exam was completed to facilitate/expedite patient care. Mcgovern findings include: stable Plan: Labs were ordered to facilitate patient care. KEVIN THOMAS PA-C 01/08/2023 Kevin Thomas PA-C 01/08/23 1510 Cosigned by Tomas Rowland MD at 01/09/2023 11:53 AM CDT documented in this encounter Plan of Treatment Not on file documented as of this encounter Goals Goal Patient Goal Type Associated Problems Recent Progress Patient-Stated? Author Patient will return to prior living situation and remain independent in ADLs upon discharge from hospital General Sara Eavns, RN Safety ? Patient/family will have appropriate support at home upon discharge Lifestyle Dannielle Soto, RN documented as of this encounter Procedures Procedure Name Priority Date/Time Associated Diagnosis Comments BASIC METABOLIC PANEL Routine 01/09/2023 4:12 AM CDT CBC W/DIFF AUTOMATED Routine 01/09/2023 4:12 AM CDT PHOSPHORUS, INORGANIC PHOSPHATE Routine 01/09/2023 4:12 AM CDT COMPREHENSIVE METABOLIC PANEL STAT 01/08/2023 3:22 PM CDT CBC W/DIFF AUTOMATED STAT 01/08/2023 3:22 PM CDT documented in this encounter Results * (ABNORMAL) PHOSPHORUS, INORGANIC PHOSPHATE (01/09/2023 4:12 AM CDT) PHOSPHORUS 6.5(H) 2.5 - 4.9 MG/DL 01/09/2023 4:55 AM CDT [facility] 01/09/2023 4:12 AM CDT Elvin Collier MD LABORATORY Final Result [facility] [address] [place] [address], [place] [phone] * (ABNORMAL) BASIC METABOLIC PANEL (01/09/2023 4:12 AM CDT) GLUCOSE 105(H) 70 - 99 MG/DL 01/09/2023 4:55 AM CDT [facility] BUN 62(H) 7 - 18 MG/DL 01/09/2023 4:55 AM CDT [facility] CREATININE S/P/B 5.74(HH) 0.55 - 1.02 MG/DL 01/09/2023 4:55 AM CDT [facility] Comment:NOT CALLED PER [employer] SODIUM S/P/B 135(L) 136 - 145 MMOL/L 01/09/2023 4:55 AM CDT [facility] POTASSIUM S/P/B 3.7 3.5 - 5.1 MMOL/L 01/09/2023 4:55 AM CDT [facility] CHLORIDE S/P/B 102 100 - 108 MMOL/L 01/09/2023 4:55 AM CDT [facility] CO2 23.7 21 - 32 MMOL/L 01/09/2023 4:55 AM CDT [facility] CALCIUM S/P/B 8.8 8.5 - 10.1 MG/DL 01/09/2023 4:55 AM CDT [facility] ANION GAP 9.3 5 - 15 MMOL/L 01/09/2023 4:55 AM CDT [facility] BUN CREATININE RATIO 10.8 6 - 26 01/09/2023 4:55 AM CDT [facility] GFR ESTIMATE 7(L) >90 ML/MIN/1.7 3 M2 01/09/2023 4:55 AM CDT [facility] Comment: NOTE: eGFR is not calculated for patients <18 years of age. This is an estimated GFR calculation using the new CKD EPI creatinine equation without race and so does not require a correction factor for race. This estimated GFR should not be used for calculating drug doses. 01/09/2023 4:12 AM CDT us Yesenia Jung MD LABORATORY Final Result [facility] [address] [place] [address], [place] [phone] * (ABNORMAL) CBC W/DIFF AUTOMATED (01/09/2023 4:12 AM CDT) [facility] WBC 8.7 4.5 - 11.0 x10'3/uL 01/09/2023 4:39 AM CDT [facility] RBC 3.62(L) 4.20 - 5.40 x10'6/uL 01/09/2023 4:39 AM CDT [facility] HGB 11.0(L) 12.0 - 16.0 G/DL 01/09/2023 4:39 AM CDT [facility] HCT 34.4(L) 38.0 - 48.0 % 01/09/2023 4:39 AM CDT [facility] MCV 95.0 81.0 - 99.0 FL 01/09/2023 4:39 AM CDT [facility] MCH 30.4 27.0 - 31.0 PG 01/09/2023 4:39 AM CDT [facility] MCHC 32.0 32.0 - 36.0 G/DL 01/09/2023 4:39 AM CDT [facility] RDW 13.5 11.5 - 14.5 % 01/09/2023 4:39 AM CDT [facility] PLT 206 130 - 400 x10'3/uL 01/09/2023 4:39 AM CDT [facility] MPV 10.6 9.3 - 12.2 FL 01/09/2023 4:39 AM CDT [facility] DIFFERENTIAL TYPE AUTOMATED DIFFERENTIAL 01/09/2023 4:39 AM CDT [facility] NEUTROPHILS % 65.1 % 01/09/2023 4:39 AM CDT [facility] LYMPHOCYTES % 19.8 % 01/09/2023 4:39 AM CDT [facility] MONOCYTES % 8.7 % 01/09/2023 4:39 AM CDT [facility] EOSINOPHILS 5.2 % 01/09/2023 4:39 AM CDT [facility] BASOPHILS 0.7 % 01/09/2023 4:39 AM CDT [facility] IMMATURE GRANS % 0.5 % 01/10/20 4:39 AM CDT [facility] ABS. NEUTROPHILS TOTAL 5.65 1.80 - 7.70 x10'3/uL 01/09/2023 4:39 AM CDT [facility] ABS. LYMPHOCYTES 1.72 1.00 - 4.80 x10'3/uL 01/09/2023 4:39 AM CDT [facility] ABS. MONOCYTES 0.75 0.24 - 0.86 x10'3/uL 01/09/2023 4:39 AM CDT [facility] ABS. EOSINOPHILS 0.45(H) 0.04 - 0.36 x10'3/uL 01/09/2023 4:39 AM CDT [facility] ABS. BASOPHILS 0.06 0.01 - 0.08 x10'3/uL 01/09/2023 4:39 AM CDT [facility] ABS. IMMATURE GRANULOCYTES 0.04 0.00 - 0.49 x10'3/uL 01/09/2023 4:39 AM CDT [facility] 01/09/2023 4:12 AM CDT us Yesenia Jung MD LABORATORY Final Result [facility] [address] [place] [address], * (ABNORMAL) COMPREHENSIVE METABOLIC PANEL (01/08/2023 3:22 PM CDT) [facility] GLUCOSE 100(H) 70 - 99 MG/DL 01/08/2023 4:13 PM CDT [facility] BUN 55(H) 7 - 18 MG/DL 01/08/2023 4:13 PM CDT [facility] CREATININE S/P/B 5.77(HH) 0.55 - 1.02 MG/DL 01/08/2023 4:13 PM CDT [facility] Comment:ELIGIO CALLED CRITICAL R ESULTS AT [id number] TO AND READ BACK BY MARA POWELL SODIUM S/P/B 132(L) 136 - 145 MMOL/L 01/08/2023 4:13 PM CDT [facility] POTASSIUM S/P/B 4.2 3.5 - 5.1 MMOL/L 01/08/2023 4:13 PM CDT [facility] CHLORIDE S/P/B 98(L) 100 - 108 MMOL/L 01/08/2023 4:13 PM CDT [facility] CO2 25.1 21 - 32 MMOL/L 01/08/2023 4:13 PM CDT [facility] CALCIUM S/P/B 8.9 8.5 - 10.1 MG/DL 01/08/2023 4:13 PM CDT [facility] BILIRUBIN TOTAL S/P/B 0.5 0.2 - 1.2 MG/DL 01/08/2023 4:13 PM CDT [facility] Comment: THIS ASSAY IS NOT RECOMMENDED FOR PATIENTS UNDERGOING TREATMENT WITH ELTROMBOPAG DUE TO THE POTENTIAL FOR FALSELY ELEVATED RESULTS. TOTAL PROTEIN S/P/B 7.0 6.4 - 8.2 G/DL 01/08/2023 4:13 PM CDT [facility] ALBUMIN S/P/B 3.4 3.4 - 5.0 G/DL 01/08/2023 4:13 PM CDT [facility] AST 18 15 - 37 U/L 01/08/2023 4:13 PM CDT [facility] ALT 25 14 - 55 U/L 01/08/2023 4:13 PM CDT [facility] ALKALINE PHOSPHATASE S/P/B 106 50 - 136 U/L 01/08/2023 4:13 PM CDT [facility] ANION GAP 8.9 5 - 15 MMOL/L 01/08/2023 4:13 PM CDT [facility] BUN CREATININE RATIO 9.5 6 - 26 01/08/2023 4:13 PM CDT [facility] A/G RATIO 0.9(L) 1.0 - 2.0 RATIO 01/08/2023 4:13 PM CDT [facility] GFR ESTIMATE 7(L) >90 ML/MIN/1.7 3 M2 01/08/2023 4:13 PM CDT [facility] Comment: NOTE: eGFR is not calculated for patients <18 years of age. This is an estimated GFR calculation using the new CKD EPI creatinine equation without race and so does not require a correction factor for race. This estimated GFR should not be used for calculating drug doses. 01/08/2023 3:22 PM CDT us Kevin Thomas PA-C LABORATORY Final Resul t [facility] [address] [place] [address], [place] [phone] * (ABNORMAL) CBC W/DIFF AUTOMATED (01/08/2023 3:22 PM CDT) WBC 9.8 4.5 - 11.0 x10'3/uL 01/08/2023 3:52 PM CDT [facility] RBC 4.13(L) 4.20 - 5.40 x10'6/uL 01/08/2023 3:52 PM CDT [facility] HGB 12.7 12.0 - 16.0 G/DL 01/08/2023 3:52 PM CDT [facility] HCT 39.4 38.0 - 48.0 % 01/08/2023 3:52 PM CDT [facility] MCV 95.4 81.0 - 99.0 FL 01/08/2023 3:52 PM CDT [facility] MCH 30.8 27.0 - 31.0 PG 01/08/2023 3:52 PM CDT [facility] MCHC 32.2 32.0 - 36.0 G/DL 01/08/2023 3:52 PM CDT [facility] RDW 13.6 11.5 - 14.5 % 01/08/2023 3:52 PM CDT [facility] PLT 208 130 - 400 x10'3/uL 01/08/2023 3:52 PM CDT [facility] MPV 10.8 9.3 - 12.2 FL 01/08/2023 3:52 PM CDT [facility] DIFFERENTIAL TYPE AUTOMATED DIFFERENTIAL 01/08/2023 3:52 PM CDT [facility] NEUTROPHILS % 68.8 % 01/08/2023 3:52 PM CDT [facility] LYMPHOCYTES % 17.5 % 01/08/2023 3:52 PM CDT [facility] MONOCYTES % 8.3 % 01/08/2023 3:52 PM CDT [facility] EOSINOPHILS 4.3 % 01/08/2023 3:52 PM CDT [facility] BASOPHILS 0.6 % 01/08/2023 3:52 PM CDT [facility] IMMATURE GRANS % 0.5 % 01/09/20 3:52 PM CDT [facility] ABS. NEUTROPHILS TOTAL 6.73 1.80 - 7.70 x10'3/uL 01/08/2023 3:52 PM CDT [facility] ABS. LYMPHOCYTES 1.71 1.00 - 4.80 x10'3/uL 01/08/2023 3:52 PM CDT [facility] ABS. MONOCYTES 0.81 0.24 - 0.86 x10'3/uL 01/08/2023 3:52 PM CDT [facility] ABS. EOSINOPHILS 0.42(H) 0.04 - 0.36 x10'3/uL 01/08/2023 3:52 PM CDT [facility] ABS. BASOPHILS 0.06 0.01 - 0.08 x10'3/uL 01/08/2023 3:52 PM CDT [facility] ABS. IMMATURE GRANULOCYTES 0.05 0.00 - 0.49 x10'3/uL 01/08/2023 3:52 PM CDT [facility] 01/08/2023 3:22 PM CDT Kevin Thomas PA-C LABORATORY Final Resul t [facility] [address] [place] [address], [place] [phone] documented in this encounter Visit Diagnoses Diagnosis ESRD (end stage renal disease) ([facility] - [place] Primary End stage renal disease Complication of vascular dialysis catheter, unspecified complication, initial encounter Hyperphosphatemia Disorders of phosphorus metabolism ESRD (end stage renal disease) ([facility] [place] End stage renal disease documented in this encounter Admitting Diagnoses Diagnosis ESRD (end stage renal disease) ([facility] [place]) End stage renal disease documented in this encounter Administered Medications Inactive Administered Medications - up to 3 most recent administrations Medication Order MAR Action Action Date Dose Rate Site alteplase injection 2 mg 2 mg, Intracatheter, Once, 1 dose, On Sun01/09/23 at 0815, CATHFLO Reconstitute to a final concentration of 1 mg/mL: 1. Aseptically withdraw 2.2 mL of Sterile Water for Injection. Do not use Bacteriostatic Water for Injection. 2. Inject the 2.2 mL of Sterile Water for Injection into the Cathflo Activase vial, directing the diluent stream into the powder. Slight foaming is not unusual; let the vial stand undisturbed to allow large bubbles to dissipate. 3. Mix by gently swirling until the contents are completely dissolved. Complete dissolution should occur within 3 minutes. DO NOT SHAKE. Given 01/09/2023 8:40 AM CDT 2 mg alteplase injection 2 mg 2 mg, Intracatheter, Once, 1 dose, On Sun01/09/23 at 0815, CATHFLO Reconstitute to a final concentration of 1 mg/mL: 1. Aseptically withdraw 2.2 mL of Sterile Water for Injection. Do not use Bacteriostatic Water for Injection. 2. Inject the 2.2 mL of Sterile Water for Injection into the Cathflo Activase vial, directing the diluent stream into the powder. Slight foaming is not unusual; let the vial stand undisturbed to allow large bubbles to dissipate. 3. Mix by gently swirling until the contents are completely dissolved. Complete dissolution should occur within 3 minutes. DO NOT SHAKE. Given 01/09/2023 8:39 AM CDT 2 mg amLODIPine (NORVASC) tablet 5 mg 5 mg, Oral, Daily, First dose on Sun01/08/23 at 1945, Until Discontinued Given 01/09/2023 9:20 AM CDT 5 mg aspirin EC (ECOTRIN) tablet 81 mg 81 mg, Oral, Daily, First dose on Sun01/08/23 at 1945, Until Discontinued, Do not break, chew, or crush. Given 01/09/2023 9:20 AM CDT 81 mg Given 01/08/2023 8:35 PM CDT 81 mg B yfpfxev-G-lthna acid 0.8 mg (DIALYVITE/NEPHRO-TAN) tablet 1 tablet 1 tablet, Oral, Daily, First dose on Sun01/09/23 at 1330, Until DiscontinuedIndications:ESRD (end stage renal disease) ([facility] [place]) Given 01/09/2023 2:14 PM CDT 1 tablet calcium carbonate (TUMS) chewable tablet 500 mg 500 mg, Oral, 3 times daily before meals, First dose on Sun01/09/23 at 1600, Until DiscontinuedIndications:Hyperphosphatemia furosemide (LASIX) tablet 20 mg 20 mg, Oral, Every 48 hours, First dose on Sun01/09/23 at 0900, Until Discontinued Given 01/09/2023 9:21 AM CDT 20 mg furosemide (LASIX) tablet 80 mg 80 mg, Oral, Every 48 hours, First dose (after last modification) on Sun01/11/23 at 0900, Until DiscontinuedIndications:ESRD (end stage renal disease) ([facility] [place]) gabapentin (NEURONTIN) capsule 100 mg 100 mg, Oral, 3 times daily, First dose on Sun01/08/23 at 2100, Until Discontinued Given 01/09/2023 9:20 AM CDT 100 mg Given 01/08/2023 8:35 PM CDT 100 mg metoprolol succinate ER (TOPROL-XL) 24 hr tablet 25 mg 25 mg, Oral, Daily, First dose on Sun01/08/23 at 1945, Until Discontinued, May be split in half along the tablet score line; do not chew or crush. Given 01/09/2023 9:20 AM CDT 25 mg vitamin D3 (cholecalciferol) tablet 125 mcg 125 mcg, Oral, Daily, First dose on Sun01/08/23 at 1945, Until Discontinued Given 01/09/2023 9:20 AM CDT 125 mcg Given 01/08/2023 8:35 PM CDT 125 mcg documented in this encounter Active and Recently Administered Medications Times are shown in CDT. Scheduled Medication Order 01/07/2023 01/08/2023 01/09/2023 alteplase injection 2 mg (COMPLETED) 2 mg, Intracatheter, Once, 1 dose, On Sun01/09/23 at 0815, CATHFLO Reconstitute to a final concentration of 1 mg/mL: 1. Aseptically withdraw 2.2 mL of Sterile Water for Injection. Do not use Bacteriostatic Water for Injection. 2. Inject the 2.2 mL of Sterile Water for Injection into the Cathflo Activase vial, directing the diluent stream into the powder. Slight foaming is not unusual; let the vial stand undisturbed to allow large bubbles to dissipate. 3. Mix by gently swirling until the contents are completely dissolved. Complete dissolution should occur within 3 minutes. DO NOT SHAKE. 0840 (Given - Provid er: Tariq Marie RN) alteplase injection 2 mg (COMPLETED) 2 mg, Intracatheter, Once, 1 dose, On Sun01/09/23 at 0815, CATHFLO Reconstitute to a final concentration of 1 mg/mL: 1. Aseptically withdraw 2.2 mL of Sterile Water for Injection. Do not use Bacteriostatic Water for Injection. 2. Inject the 2.2 mL of Sterile Water for Injection into the Cathflo Activase vial, directing the diluent stream into the powder. Slight foaming is not unusual; let the vial stand undisturbed to allow large bubbles to dissipate. 3. Mix by gently swirling until the contents are completely dissolved. Complete dissolution should occur within 3 minutes. DO NOT SHAKE. 0839 (Given - Provid er: Tariq Marie RN) amLODIPine (NORVASC) tablet 5 mg 5 mg, Oral, Daily, First dose on Sun01/08/23 at 1944, Until Discontinued 2033 (Not Given - Provider: Sara Zeng RN - Reason: Other - Comment: notified of VS. RN was told not to give medication.) 0920 (Given - Provider: Mai Gaspar RN) aspirin EC (ECOTRIN) tablet 81 mg 81 mg, Oral, Daily, First dose on Sun01/08/23 at 1944, Until Discontinued, Do not break, chew, or crush. 2034 (Given - Provider: Sara Zeng RN) 0920 (Given - Provider: Mai Gaspar RN) B hejqdle-L-qkwos acid 0.8 mg (DIALYVITE/NEPHRO-TAN) tablet 1 tablet 1 tablet, Oral, Daily, First dose on Sun01/09/23 at 1330, Until Discontinued 1414 (Given - Provid er: Mai Gaspar RN) calcium carbonate (TUMS) chewable tablet 500 mg 500 mg, Oral, 3 times daily before meals, First dose on Sun01/09/23 at 1600, Until Discontinued 152 (Not Given - Provider: Mai Gaspar RN - Reason: Other - Comment: off unit) furosemide (LASIX) tablet 20 mg (CANCELED) 20 mg, Oral, Every 48 hours, First dose on Sun01/09/23 at 0900, Until Discontinued 09 (Given - Provid er: Mai Gaspar RN) furosemide (LASIX) tablet 80 mg 80 mg, Oral, Every 48 hours, First dose (after last modification) on Sun01/11/23 at 0900, Until Discontinued gabapentin (NEURONTIN) capsule 100 mg 100 mg, Oral, 3 times daily, First dose on Sun01/08/23 at 2100, Until Discontinued 2034 (Given - Provider: Sara Zeng RN) 0920 (Given - Provider: Mai Gaspar RN)152 (Not Given - Provider: Mai Gaspar RN - Reason: Other - Comment: off unit)2100 (Canceled Entry - Provider: Automatic Discharge Provider - Comment: Automatically canceled at discontinue of medication order) metoprolol succinate ER (TOPROL-XL) 24 hr tablet 25 mg 25 mg, Oral, Daily, First dose on Sun01/08/23 at 1945, Until Discontinued, May be split in half along the tablet score line; do not chew or crush. 2034 (Not Given - Provider: Sara Zeng RN - Reason: Other - Comment: MD notified of VS. RN told not to give medicaiton at this time.) 0920 (Given - Provider: Mai Gaspar RN) vitamin D3 (cholecalciferol) tablet 125 mcg 125 mcg, Oral, Daily, First dose on Sun01/08/23 at 1945, Until Discontinued 2034 (Given - Provider: Sara Zeng RN) 0920 (Given - Provider: Mai Gaspar RN) PRN Medication Order 01/07/2023 01/08/2023 01/09/2023 HYDROcodone-acetaminophen (NORCO) 5-325 MG tablet 1 tablet 1 tablet, Oral, Every 6 hours PRN, Moderate pain (Scale 4 - 7), Starting on Sun01/08/23 at 1924, Until Sun01/09/23 at 2128, Maximum dose of acetaminophen is 4000 mg from all sources in 24 hours. documented in this encounter Care Teams Shopfitter Relationship Specialty Start Date End Date Jasson Valdivia MD [address] [place] [phone] PCP - General FAMILY PRACTICE 11/03/18 Huber Milligan MD [address] [place] [phone] Consulting Physician Vascular Neurology 04/30/19 Norm Hopkins MD [address] [place] [phone] Consulting Physician CLINICAL CARDIAC ELECTROPHYSIOLOGY 04/30/19 documented as of this encounter
--- OUTSIDE RECORDS SUMMARY | 2024-03-19 18:38 | XMS_ITS | Encounter Summary ---
Author Organization [facility] Address [address] [place] [address]. [place], [place] [id number] [place] [phone] Care Team Providers Care Call Center Assistant Name Role Phone Jasson Cueva MD Primary Care Provider Huber Milligan MD Unavailable [phone] Norm Hopkins MD Unavailable [phone] Encounter Details Date Type Department Care Team (Late st Contact Info) Description 12/26/2021 Orders Only [facility] [address] [place] [address] Jasson Cueva MD [address] [place] [phone] Social History Tobacco Use Types Packs/Day Years Used Date Smoking Tobacco: Former Cigarettes Smokeless Tobacco: Never Alcohol Use Standard Drinks/Week Comments Not Currently 0 (1 standard drink = 0.6 oz pur e alcohol) Comments No Sex and Gender Information Value Date Recorded Sex Assigned at Not on file 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 No / Unsure 12/21/2021 10:24 PM CDT documented as of this encounter Functional Status [...] Ramirez RN documented as of this encounter Results * (ABNORMAL) BASIC METABOLIC PANEL (12/26/2021 11:30 AM CDT) [facility] SODIUM S/P/B 144 136 - 145 MMOL/L 12/26/2021 12:43 PM CDT [facility] POTASSIUM S/P/B 4.2 3.5 - 5.1 MMOL/L 12/26/2021 12:43 PM CDT [facility] CHLORIDE S/P/B 107 98 - 107 MMOL/L 12/26/2021 12:43 PM CDT [facility] CO2 26.1 21.0 - 32.0 MMOL/L 12/26/2021 12:43 PM CDT [facility] GLUCOSE 65(L) 70 - 99 MG/DL 12/26/2021 12:43 PM [facility] Comment: FASTING GLUCOSE 100 TO 125 MG/DL IS CONSISTENT WITH IMPAIRED FASTING GLUCOSE. FASTING GLUCOSE >125 MG/DL IS CONSISTENT WITH DIABETES. RANDOM GLUCOSE >200 MG/DL WITH HYPERGLYCEMIC SYMPTOMS IS CONSISTENT WITH DIABETES. PER ADA GUIDELINES BUN 31(H) 6 - 24 MG/DL 12/26/2021 12:43 PM [facility] CREATININE S/P/B 2.75(H) 0.55 - 1.02 MG/DL 12/26/2021 12:43 PM [facility] CALCIUM S/P/B 8.9 8.4 - 10.5 MG/DL 12/26/2021 12:43 PM [facility] ANION GAP 10.9 5.0 - 15.0 MMOL/L 12/26/2021 12:43 PM [facility] OSMOLALITY (CALC) 303 MOSM/KG 022 12:43 PM [facility] Comment:REFERENCE RANGE NOT ESTABLISHED GFR ESTIMATE 18(L) >89 ML/MIN/1. 73 M2 12/26/2021 12:43 PM [facility] GFR NOTES GFR REFERENCE S: 12/26/2021 12:43 PM [facility] Comment: THE ESTIMATED GFR IS CALCULATED [...] ml/min/1.73 m2 G5,KIDNEY FAILURE: <15 ml/min/1.73 m2 12/26/2021 11:3 0 AM CDT us Jasson Cueva MD LABORATORY Final Resul t [facility] [address] [place] [address], documented in this encounter Visit Diagnoses Diagnosis MOIRA (acute kidney injury) ([facility] [place] Primary Acute kidney failure, unspecified COPD (chronic obstructive pulmonary disease) ([facility] [place]) Chronic airway obstruction, not elsewhere classified CKD (chronic kidney disease) Chronic kidney disease, unspecified CHF (congestive heart failure) ([facility] [place]) Congestive heart failure, unspecified documented in this encounter Care Teams Call Center Assistant Relationship Specialty Start Date End Date Jasson Cueva MD [address] [place] [phone] PCP - General FAMILY PRACTICE 11/03/18 Huber Milligan MD [address] [place] [phone] Consulting Physician Vascular Neurology 04/30/19 Norm Hopknis MD [address] [place] [phone] Consulting Physician CLINICAL CARDIAC ELECTROPHYSIOLOGY 04/30/19 documented as of this encounter
--- OUTSIDE RECORDS SUMMARY | 2024-03-19 18:38 | XMS_ITS | Encounter Summary ---
Author Organization [facility] Address [address] [place] [address]. [place], [place] [id number] [place] [phone] Care Team Providers Care Roll Tester Name Role Phone Jasson Cueva MD Primary Care Provider [phone] Huber Milligan MD Unavailable [phone] Norm Hopkins MD Unavailable [phone] Encounter Details Date Type Department Care Team (Latest Contact Info) Description 10/02/2022 Travel Social History Tobacco Use Types Packs/Day Years Used Date Smoking Tobacco: Former Cigarettes Smokeless Tobacco: Never Alcohol Use Standard Drinks/Week Comments Not Currently 0 (1 standard drink = 0.6 oz pur e alcohol) Comments No Sex and Gender Information Value Date Recorded Sex Assigned at Not on file 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 Gender Identity Not on file Sexual Orientation [...] Status No 12/21/2021 10:33 PM CDT Sepideh Kevin, R N Active * Do you have [...] on filedocumented in this encounter Care Teams Roll Tester Relationship Specialty Start Date End Date Jasson Cueva MD [address] [place] [phone] PCP - General FAMILY PRACTICE 11/03/18 Huber Milligan MD [address] [place] [phone] Consulting Physician Vascular Neurology 04/30/19 Norm Hopkins MD [address] [place] [phone] Consulting Physician CLINICAL CARDIAC ELECTROPHYSIOLOGY 04/30/19 documented as of this encounter
--- OUTSIDE RECORDS SUMMARY | 2024-03-19 18:38 | XMS_ITS | Encounter Summary ---
Author Organization [facility] Address [address] [place] [address]. [place], [place] [id number] [place] [address] Care Team Providers Care Airport Guide Name Role Phone Jasson Cueva MD Primary Care Provider [phone] Huber Milligan MD Unavailable [phone] Norm Hopkins MD Unavailable [phone] Reason for Referral * Imaging (Urgent) - Closed Specialty Diagnoses / Procedures Referred By Contac t Referred To Contact RADIOLOGY Procedures CT CHEST+ABD+PEL WO CON CT CHEST+ABD+PEL W CON Walt Holm MD Phone: tel: fax: Referral ID Status Reason Start Date Expiration Date Visits Re quested Visits Authorized [id number] Closed 12/19/2022 12/20/2023 1 1 * Imaging (Emergency) - Closed Specialty Diagnoses / Procedures Referred By Contac t Referred To Contact RADIOLOGY Procedures CT CERV SPINE WO CON Walt Holm MD Phone: tel: fax: Referral ID Status Reason Start Date Expiration Date Visits Re quested Visits Authorized [id number] Closed 12/19/2022 12/20/2023 1 1 * Imaging (Emergency) - Closed Specialty Diagnoses / Procedures Referred By Jayce coronado Referred To Contact RADIOLOGY Procedures CT HEAD WO CON Walt Holm MD Phone: tel: fax: Referral ID Status Reason Start Date Expiration Date Visits Re quested Visits Authorized [id number] Closed 12/19/2022 12/20/2023 1 1 Reason for Visit * Reason Comments Fall Encounter Details Date Type Department Care Team (Late st Contact Info) Description 12/19/2022 8:18 PM CDT - 12/20/2022 1:18 AM CDT Emergency [facility] [address] [facility] [place] [address] Walt Holm MD [address] [place] [id number] Fall Discharge Disposition: Transfer to Acute [facility] Social History Tobacco Use Types Packs/Day [...] often do you attend chur ch or mandaeism services? Never 12/20/2022 Do you belong to any clubs o r organizations such as restorationism groups, unions, fraternal or athletic groups, or [...] and heating? Not hard at all 12/20/2022 [facility] [...] place to sleep or slept in a assisted (including now)? 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 Gender Identity Not on file Sexual Orientation Not on file documented as of this encounter Last Filed Vital Signs Vital Sign Reading Time Taken Comments Blood Pressure 144/79 12/20/2022 1:00 AM CDT Pulse 79 12/20/2022 1:00 AM CDT Temperature 36.1 ??C (97 ??F) 12/19/2022 8:20 PM CDT Respiratory Rate 24 12/19/2022 8:20 PM CDT Oxygen Saturation 96% 12/20/2022 1:00 AM CDT Inhaled Oxygen Concentration - - Weight 77.1 kg (170 lb) 12/19/2022 8:20 PM CDT Height 170.2 cm (5' 7 ) 12/19/2022 8:20 PM CDT Body Mass Index 26.63 12/19/2022 8:20 PM CDT documented in this encounter Functional Status * RETIRED Are [...] for 30 days. 15 tablet 01/06/2023 02/05/2023 furosemide (LASIX) 20 MG tablet Take 1 tablet (20 mg total) by mouth daily. 11/23/2021 01/06/2023 gabapentin (NEURONTIN) 100 MG capsule Take 1 capsule (100 mg total) by mouth 3 (three) times daily for 60 days. 90 capsule 1 01/02/2023 03/03/2023 gabapentin (NEURONTIN) 600 MG tabletIndications :Neuropathic pain Take 1 tablet (600 mg total) by mouth 3 (three) times daily. 90 tablet 3 01/30/2022 01/06/2023 HYDROcodone-aceta minophen (NORCO) 5-325 MG tabletIndications :Acute Pain < 7 Day Supply Take 1 tablet by mouth every 6 (six) hours as needed. Indications: Acute Pain < 7 Day Supply 10 tablet 01/05/2023 11/22/2023 metoprolol succinate ER 50 MG 24 hr tablet Take 1 tablet (50 mg total) by mouth daily. 2 11/08/2018 01/06/2023 documented as of this encounter ED Notes * Destiney Davidson RN - 12/20/2022 1:14 AM CDT [facility] here to transport the patient to [facility]. * Laly Power RN - 12/20/2022 12:34 AM CDT PT REPORT GIVEN TO DANIAL COTO AT [facility]. * Destiney Davidson RN - 12/19/2022 8:23 PM CDT Patient presents to the ER with complaints of right ankle pain and upper abdominal pain after a fall from standing. The patient denies LOC. The patient has swelling to the right ankle. The patient has bruising to her upper abdomen. The patient states that her pain is intermittent and rates it a 10 out of 10. The patient is not currently in pain the time of triage. * Walt Holm MD - 12/19/2022 8:22 PM CDT Chief Complaint Chief Complaint Patient presents with Fall History of Present Illness Pt presents after falling at home. Found down beside doorway to bathroom by son. Pt has no memory of event. REported to have confusion per son. Alert and oriented to self on arrival to the ED> Hx of prior stroke with residual right sided deficits. No new deficits. There is swelling and pain to the right ankle. Mild wheezing. Reports some abdominal pain. Bruise to the right side of the abdomen. RUQ. Denies any other pain, injury. No CP or SOB. Medical History ALLERGIES: Review of patient's allergies indicates: No Known Allergies MEDICATIONS: Prior to Admission medications Medication Sig Start Date End Date Taking? Authorizing Provider amLODIPine 5 MG tablet 5 mg daily. 12/21/20 [facility] aspirin EC 81 MG tablet Take 81 mg by mouth daily. [facility] furosemide (LASIX) 20 MG tablet Take 20 mg by mouth daily. 11/23/21 [facility] gabapentin (NEURONTIN) 600 MG tablet Take 1 tablet (600 mg total) by mouth 3 (three) times daily. 01/30/22 Huber Milligan MD metoprolol succinate ER 50 MG 24 hr tablet Take 50 mg by mouth daily. 11/08/18 [facility] vitamin D3, cholecalciferol, 5000 UNITS capsule Take 1 capsule by mouth daily. [facility] PAST MEDICAL HISTORY: Past Medical History: Diagnosis Date CKD (chronic kidney disease) stage 3, GFR 30-59 ml/min ([facility]) COPD (chronic obstructive pulmonary disease) ([facility]) ([facility]) Depression Displaced fracture of proximal end of right humerus 11/06/2018 HLD (hyperlipidemia) Hypertension Ischemic stroke ([facility]) ([facility]) Neuropathy UTI (urinary tract infection) PAST SURGICAL HISTORY: Past Surgical History: Procedure Laterality Date JOINT [...] Systems Constitutional: Negative for chills and fever. HENT: Negative for congestion and rhinorrhea. Eyes: Negative for pain and redness. Respiratory: Negative for cough and shortness of breath. Cardiovascular: Negative for chest pain and palpitations. Gastrointestinal: Positive for abdominal pain. Negative for vomiting. Genitourinary: Negative for dysuria and hematuria. Musculoskeletal: Negative except as documented in HPI. Skin: Negative except as documented in HPI. Neurological: Negative except as documented in HPI. Psychiatric/Behavioral: Positive for confusion. The patient is not nervous/anxious. Physical Exam Filed Vitals: 12/19/22 2306 12/19/22 2333 12/20/22 0030 12/20/22 0100 BP: (!) 151/82 (!) 168/77 (!) 148/77 (!) 144/79 Pulse: 77 79 Resp: Temp: TempSrc: SpO2: 97% 97% 94% 96% Weight: Height: Physical Exam Vitals and nursing note reviewed. Constitutional: General: She is not in acute distress. Appearance: She is well-developed. HENT: Head: Normocephalic and atraumatic. Right Ear: External ear normal. Left Ear: External ear normal. Nose: Nose normal. No congestion or rhinorrhea. Mouth/Throat: Mouth: Mucous membranes are moist. Eyes: Extraocular Movements: Extraocular movements intact. Conjunctiva/sclera: Conjunctivae normal. Pupils: Pupils are equal, round, and reactive to light. Neck: Vascular: No JVD. Trachea: No tracheal deviation. Cardiovascular: Rate and Rhythm: Normal rate and regular rhythm. Pulses: Normal pulses. Pulmonary: Effort: Pulmonary effort is normal. No respiratory distress. Breath sounds: Wheezing present. Abdominal: General: There is no distension. Palpations: Abdomen is soft. Tenderness: There is no abdominal tenderness. There is no guarding. Comments: Bruise to the RUQ of abdomen Musculoskeletal: General: Swelling and signs of injury present. Cervical back: Normal range of motion. Comments: Swelling and tenderness to the right ankle. Strong distal pulses Skin: General: Skin is warm and dry. Neurological: Mental Status: She is alert. 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1950 Requested By: WALT HOLM Order Number: [id number] Reading MD: Measurements Intervals [place] Rate: 81 P: 26 [place]: 160 QRS: -65 QRSD: 93 T: 50 QT: 385 QTc: 449 Interpretive Statements SINUS RHYTHM PATTERN CONSISTENT WITH PULMONARY DISEASE LEFT ANTERIOR FASCICULAR BLOCK LABORATORY STUDIES: Results for orders placed or performed during the hospital encounter of 12/19/22 PRO-BRAIN NATRIURETIC PEPTIDE Result Value Ref Range PRO-B TYPE NATRIURETIC PEPTIDE 2,488 (H) <125 PG/ML MAGNESIUM Result Value Ref Range MAGNESIUM 2.4 1.8 - 2.4 MG/DL TROPONIN, QUANT Result Value Ref Range TROPONIN I HIGH SENSITIVITY 27 0 - 51 ng/L COMPREHENSIVE METABOLIC PANEL Result Value Ref Range SODIUM S/P/B 143 136 - 145 MMOL/L POTASSIUM S/P/B 3.7 3.5 - 5.1 MMOL/L CHLORIDE S/P/B 108 (H) 98 - 107 MMOL/L CO2 23.1 21.0 - 32.0 MMOL/L GLUCOSE 143 (H) 70 - 99 MG/DL BUN 78 (H) 6 - 24 MG/DL CREATININE S/P/B 4.70 (H) 0.55 - 1.02 MG/DL CALCIUM S/P/B 8.9 8.4 - 10.5 MG/DL BILIRUBIN TOTAL S/P/B 0.6 0.2 - 1.0 MG/DL ALKALINE PHOSPHATASE S/P/B 101 55 - 142 U/L AST 14 (L) 15 - 37 U/L ALT 16 14 - 59 U/L TOTAL PROTEIN S/P/B 7.5 6.4 - 8.2 G/DL ALBUMIN S/P/B 3.6 3.4 - 5.0 G/DL ANION GAP 11.9 5.0 - 15.0 MMOL/L OSMOLALITY (CALC) 322 MOSM/KG GFR ESTIMATE 9 (L) >89 ML/MIN/1.73 M2 GFR NOTES GFR REFERENCES: CBC W/DIFF AUTOMATED Result Value Ref Range WBC 10.58 4.00 - 10.80 x10'3/uL RBC 4.42 4.10 - 5.40 x10'6/uL HGB 13.4 12.0 - 16.0 G/DL HCT 41.8 36.0 - 47.0 % MCV 94.6 78.0 - 100.0 FL MCH 30.3 27.0 - 31.0 PG MCHC 32.1 (L) 33.0 - 36.0 G/DL RDW 13.6 11.5 - 14.5 % PLT 229 150 - 350 x10'3/uL MPV 10.1 7.4 - 10.4 FL CBC COMMENT NORMAL REFERENCE RANGE NOT ESTABLISHED FOR THE PROPORTIONAL LEUKOCYTE DIFFERENTIAL. NEUTROPHILS 80.0 % LYMPHOCYTES 8.6 % MONOCYTES 10.1 % EOSINOPHILS 0.5 % BASOPHILS 0.3 % IMMATURE GRANS 0.5 % NRBC 0.0 % ABS. NEUTROPHILS 8.47 (H) 1.60 - 8.30 x10'3/uL ABS. LYMPHOCYTES 0.91 0.80 - 4.70 x10'3/uL ABS. MONOCYTES 1.07 0.00 - 1.50 x10'3/uL ABS. EOSINOPHILS 0.05 0.00 - 0.40 x10'3/uL ABS. BASOPHILS 0.03 0.00 - 0.20 x10'3/uL ABS. IMMATURE GRANULOCYTES 0.05 (H) 0.00 - 0.03 x10'3/uL ABS. NUCLEATED RBC'S 0.00 0.00 x10'3/uL Blood gas, venous Result Value Ref Range O2 SAT VENOUS 35 (L) 40 - 70 % PH VENOUS 7.25 (L) 7.35 - 7.45 PCO2 VENOUS 45.9 41.0 - 51.0 MMHG PO2 VENOUS 24.0 20.0 - 40.0 MM HG BASE DEFICIT VENOUS 7.3 MMOL/L BICARB VENOUS 19.4 (L) 22.0 - 29.0 MMOL/L TOTAL CO2 VENOUS 20.8 (L) 25.0 - 29.0 MMOL/L LITERS OF O2 ROOM AIR LIPASE Result Value Ref Range LIPASE 56 16 - 77 UNITS/L LACTIC ACID W REFLEX (SEPSIS) Result Value Ref Range LACTIC ACID 1.8 0.4 - 2.0 MMOL/L IMAGING STUDIES CT HEAD WO CON Final Result by User, [id number] (12/20 2235) EXAMINATION: CT of the head, and cervical spine [id number] EXAM DATE/TIME: 12/19/2022 9:42 PM REASON FOR EXAM: fall See Comments to the Radiologist COMPARISON: Head CT 04/10/2021, cervical spine radiographs 03/04/2020 TECHNIQUE: Axial CT images of the brain, and cervical spine were obtained without the use of IV contrast agent. A dose lowering technique was used for this procedure, which may include, but is not limited to, dose reduction technique, automated exposure control, iterative reconstruction, ALARA (As Low As Reasonably Achievable), or Image Gently techniques. FINDINGS: Head: No acute intracranial hemorrhage or CT evidence of large territory infarct. Unilateral left-sided basal ganglia and thalamic calcification may be congenital or represent underlying incidental, vascular variant such as developmental venous anomaly. Periventricular and subcortical white matter hypodensities are seen, which likely represent sequelae of chronic microvascular change. There is no evidence of hydrocephalus, extraaxial fluid collection, mass effect or midline shift. There is no acute displaced calvarial fracture. Visualized paranasal sinuses and mastoid air cells are clear. Cervical spine: There is anterolisthesis of C2 on C3 measuring 6 mm. Mild retrolisthesis of C4 on C5. Loss of normal cervical lordosis. Scoliosis. Cervical vertebral body heights and alignment are otherwise preserved. There is no acute fracture or traumatic subluxation. No destructive osseous lytic or sclerotic lesions are seen. Multilevel degenerative changes. No significant paravertebral soft tissue abnormalities are appreciated. Visualized aspects of the lung apices are without mass or airspace consolidation. IMPRESSION: 1. No acute findings in the head and cervical spine. 2. Chronic microvascular change. 3. Multilevel degenerative changes in the cervical spine. 4. Additional findings as above. Referred By: Interpreted By: Howard Rodriguez Dr., 12/19/2022 10:[address] CERV SPINE WO CON Final Result by User, [id number] (12/20 2235) EXAMINATION: CT of the head, and cervical spine [id number] EXAM DATE/TIME: 12/19/2022 9:42 PM REASON FOR EXAM: fall See Comments to the Radiologist COMPARISON: Head CT 04/10/2021, cervical spine radiographs 03/04/2020 TECHNIQUE: Axial CT images of the brain, and cervical spine were obtained without the use of IV contrast agent. A dose lowering technique was used for this procedure, which may include, but is not limited to, dose reduction technique, automated exposure control, iterative reconstruction, ALARA (As Low As Reasonably Achievable), or Image Gently techniques. FINDINGS: Head: No acute intracranial hemorrhage or CT evidence of large territory infarct. Unilateral left-sided basal ganglia and thalamic calcification may be congenital or represent underlying incidental, vascular variant such as developmental venous anomaly. Periventricular and subcortical white matter hypodensities are seen, which likely represent sequelae of chronic microvascular change. There is no evidence of hydrocephalus, extraaxial fluid collection, mass effect or midline shift. There is no acute displaced calvarial fracture. Visualized paranasal sinuses and mastoid air cells are clear. Cervical spine: There is anterolisthesis of C2 on C3 measuring 6 mm. Mild retrolisthesis of C4 on C5. Loss of normal cervical lordosis. Scoliosis. Cervical vertebral body heights and alignment are otherwise preserved. There is no acute fracture or traumatic subluxation. No destructive osseous lytic or sclerotic lesions are seen. Multilevel degenerative changes. No significant paravertebral soft tissue abnormalities are appreciated. Visualized aspects of the lung apices are without mass or airspace consolidation. IMPRESSION: 1. No acute findings in the head and cervical spine. 2. Chronic microvascular change. 3. Multilevel degenerative changes in the cervical spine. 4. Additional findings as above. Referred By: Interpreted By: Howard Rodriguez Dr., 12/19/2022 10:[address] CHEST+ABD+PEL WO CON Final Result by User, [id number] (12/19 2248) EXAMINATION: CT Chest, Abdomen, and Pelvis without contrast EXAM DATE/TIME: 12/19/2022 9:42 PM REASON FOR EXAM: 72 years of age, Female, with fall; bruising COMPARISON: CT lung screening 10/02/2022, MRI abdomen 04/05/2020 TECHNIQUE: Axial CT images of the chest abdomen and pelvis are obtained without intravenous contrast. Subsequent coronal and sagittal reformatted sequences are created for evaluation. Automated exposure control was utilized for dose reduction. FINDINGS: Chest: Heart: No cardiomegaly. No pericardial effusion. Coronary artery calcification. Mediastinal/Lymph nodes: No mass or lymphadenopathy. Lungs/Pleura: Small focal atelectasis in the right lower lung. No pulmonary mass or airspace consolidation. No pleural effusion. No pneumothorax. Musculoskeletal: No acute osseous findings. Abdomen/pelvis: Liver/biliary: The liver is normal in size and smooth in surface contour. No focal liver lesions are seen. Cholelithiasis. No biliary dilatation is seen. Pancreas/adrenals/spleen: Unremarkable. Genitourinary: No hydronephrosis is seen. Small right kidney and diminutive left kidney with nonobstructive bilateral nephrolithiasis and subcentimeter bilateral cystic foci, demonstrating internal density in the right measuring 6 mm and with associated mild internal density within 2 subcentimeter exophytic cystic foci on the left. Urinary bladder is grossly unremarkable. The uterus is grossly unremarkable. Bowel: No bowel obstruction or inflammatory change is seen. The appendix is not definitively visualized without evidence of appendicitis. Colonic diverticulosis. Peritoneum: No free air or free fluid is seen. Lymph nodes: No lymphadenopathy is seen. Musculoskeletal: No acute osseous findings. Chronic mild/moderate height loss of L1 vertebral body. Left hip arthroplasty. Right hip hardware and chronic proximal femoral fracture. IMPRESSION: 1. No acute findings in the chest, abdomen or pelvis. 2. Cholelithiasis. 3. Small bilateral kidneys with subcentimeter cystic foci demonstrating internal density, overall suboptimally evaluated. Correlation with outpatient renal protocol CT or MRI or renal ultrasound is recommended. 4. Additional findings as above. Referred By: Interpreted By: Howard Rodriguez Dr., 12/19/2022 10:35 PM XR ANKLE RT M3V Final Result by User, [id number] (12/19 2125) Examination: 3 views right ankle Exam Date/Time: 12/19/2022 8:45 PM Reason For Exam: fall Comparison: No existing relevant imaging study available. Technique: 3 views of the right ankle were obtained. Findings: No acute fracture or dislocation. No destructive osseous lytic or sclerotic lesions. Ankle mortise is intact. No radiopaque foreign bodies. Chronic deformity of the distal fibula. IMPRESSION: 1. No acute osseous abnormality. 2. Chronic distal fibular deformity. Referred By: Interpreted By: Howard Rodriguez Dr., 12/19/2022 9:23 PM ED Course / Medical Decision Making Medical Decision Making ECG independently reviewed and interpreted by me. ECG by my interpretation is NSR Rate [address] Normal intervals. No acute st t wave abnormlaities. Incomplete RBBB ED Course as of 12/20/22 0220 [facility] Dec 19, [address] HEAD WO CON IMPRESSION: 1. No acute findings in the head and cervical spine. 2. Chronic microvascular change. 3. Multilevel degenerative changes in the cervical spine. [DP] 2300 [place]IRA on CKD. Mild confusion. Will plan for transfer to [facility] for further work-up. [DP] 2328 D/W Dr. Mckeon, will plan on transfer to [facility]. [DP] ED Course User Index [DP] Walt Holm MD Clinical Impression MOIRA (acute kidney injury) (CMS/HCC) (Primary) CKD (chronic kidney disease) Encephalopathy Disposition: Transfer to Another Facility Walt Holm MD 12/20/22 0220 documented in this encounter Plan of Treatment [...] Name Priority Date/Time Associated Diagnosis Comments CT HEAD WO CON STAT 12/19/2022 10:[address] CHEST+ABD+PEL WO CON STAT 12/19/2022 10:[address] CERV SPINE WO CON STAT 12/19/2022 10:15 PM CDT XR ANKLE RT M3V STAT 12/19/2022 9:11 PM CDT ECG 12-LEAD Routine 12/19/2022 9:00 PM CDT LACTIC ACID W REFLEX (SEPSIS) STAT 12/19/2022 8:58 PM CDT PRO-BRAIN NATRIURETIC PEPTIDE STAT 12/19/2022 8:58 PM CDT BLOOD GAS, VENOUS STAT 12/19/2022 8:5 8 PM CDT COMPREHENSIVE METABOLIC PANEL STAT 12/19/2022 8:58 PM CDT CBC W/DIFF AUTOMATED STAT 12/19/2022 8:58 PM CDT TROPONIN, QUANT STAT 12/19/2022 8:58 PM CDT MAGNESIUM STAT 12/19/2022 8:58 PM CDT LIPASE STAT 12/19/2022 8:58 PM CDT documented in this encounter Results * CT CHEST+ABD+PEL WO CON (12/19/2022 10:15 PM CDT) Anatomical Region Laterality Modality Chest, Abdomen, Pelvis Computed Tomography 12/19/2022 10:3 5 PM CDT Impressions 12/19/2022 10:48 PM CDT IMPRESSION: 1. ??No acute findings in the chest, abdomen or pelvis. 2. ??Cholelithiasis. 3. ??Small bilateral kidneys with subcentimeter cystic foci demonstrating internal density, overall suboptimally evaluated. ??Correlation with outpatient renal protocol CT or MRI or renal ultrasound is recommended. 4. ??Additional findings as above. Referred By: ?? Interpreted By: Howard Rodriguez Dr., 12/19/2022 10:35 PM Narrative 12/19/2022 10:48 PM CDT EXAMINATION: CT Chest, Abdomen, and Pelvis without contrast EXAM DATE/TIME: 12/19/2022 9:42 PM REASON FOR EXAM: 72 years of age, Female, with fall; bruising COMPARISON: CT lung screening 10/02/2022, MRI abdomen 04/05/2020 TECHNIQUE: Axial CT images of the chest abdomen and pelvis are obtained without intravenous contrast. ??Subsequent coronal and sagittal reformatted sequences are created for evaluation. ??Automated exposure control was utilized for dose reduction. FINDINGS: Chest: Heart: No cardiomegaly. No pericardial effusion. ??Coronary artery calcification. Mediastinal/Lymph nodes: No mass or lymphadenopathy. Lungs/Pleura: Small focal atelectasis in the right lower lung. ??No pulmonary mass or airspace consolidation. No pleural effusion. No pneumothorax. Musculoskeletal: No acute osseous findings. Abdomen/pelvis: Liver/biliary: The liver is normal in size and smooth in surface contour. ??No focal liver lesions are seen. ??Cholelithiasis. ??No biliary dilatation is seen. Pancreas/adrenals/spleen: Unremarkable. Genitourinary: No hydronephrosis is seen. ??Small right kidney and diminutive left kidney with nonobstructive bilateral nephrolithiasis and subcentimeter bilateral cystic foci, demonstrating internal density in the right measuring 6 mm and with associated mild internal density within 2 subcentimeter exophytic cystic foci on the left. Urinary bladder is grossly unremarkable. The uterus is grossly unremarkable. Bowel: No bowel obstruction or inflammatory change is seen. The appendix is not definitively visualized without evidence of appendicitis. ??Colonic diverticulosis. Peritoneum: No free air or free fluid is seen. Lymph nodes: No lymphadenopathy is seen. Musculoskeletal: No acute osseous findings. ??Chronic mild/moderate height loss of L1 vertebral body. ??Left hip arthroplasty. ??Right hip hardware and chronic proximal femoral fracture. Procedure Note Howard Rodriguez MD - 12/19/2022 EXAMINATION: CT Chest, Abdomen, and Pelvis without contrast EXAM DATE/TIME: 12/19/2022 9:42 PM REASON FOR EXAM: 72 years of age, Female, with fall; bruising COMPARISON: CT lung screening 10/02/2022, MRI abdomen 04/05/2020 TECHNIQUE: Axial CT images of the chest abdomen and pelvis are obtainedwithout intravenous contrast. Subsequent coronal and sagittal reformattedsequences are created for evaluation. Automated exposure control wasutilized for dose reduction. FINDINGS: Chest: Heart: No cardiomegaly. No pericardial effusion. Coronary arterycalcification. Mediastinal/Lymph nodes: No mass or lymphadenopathy. Lungs/Pleura: Small focal atelectasis in the right lower lung. Nopulmonary mass or airspace consolidation. No pleural effusion. Nopneumothorax. Musculoskeletal: No acute osseous findings. Abdomen/pelvis: Liver/biliary: The liver is normal in size and smooth in surface contour.No focal liver lesions are seen. Cholelithiasis. No biliary dilatationis seen. Pancreas/adrenals/spleen: Unremarkable. Genitourinary: No hydronephrosis is seen. Small right kidney anddiminutive left kidney with nonobstructive bilateral nephrolithiasis andsubcentimeter bilateral cystic foci, demonstrating internal density in theright measuring 6 mm and with associated mild internal density within 2subcentimeter exophytic cystic foci on the left. Urinary bladder isgrossly unremarkable. The uterus is grossly unremarkable. Bowel: No bowel obstruction or inflammatory change is seen. The appendixis not definitively visualized without evidence of appendicitis. Colonicdiverticulosis. Peritoneum: No free air or free fluid is seen. Lymph nodes: No lymphadenopathy is seen. Musculoskeletal: No acute osseous findings. Chronic mild/moderate heightloss of L1 vertebral body. Left hip arthroplasty. Right hip hardware andchronic proximal femoral fracture. IMPRESSION: 1. No acute findings in the chest, abdomen or pelvis. 2. Cholelithiasis. 3. Small bilateral kidneys with subcentimeter cystic foci demonstratinginternal density, overall suboptimally evaluated. Correlation withoutpatient renal protocol CT or MRI or renal ultrasound is recommended. 4. Additional findings as above. Referred By: Interpreted By: Howard Rodriguez Dr., 12/19/2022 10:35 PM us Walt Holm MD CT Final Res ult * CT CERV SPINE WO CON (12/19/2022 10:15 PM CDT) Anatomical Region Laterality Modality Spine Computed Tomogra phy 12/19/2022 10:2 4 PM CDT Impressions 12/19/2022 10:35 PM CDT IMPRESSION: 1. ??No acute findings in the head and cervical spine. 2. ??Chronic microvascular change. 3. ??Multilevel degenerative changes in the cervical spine. 4. ??Additional findings as above. Referred By: ?? Interpreted By: Howard Rodriguez Dr., 12/19/2022 10:24 PM Narrative 12/19/2022 10:35 PM CDT EXAMINATION: CT of the head, and cervical spine [id number] EXAM DATE/TIME: 12/19/2022 9:42 PM REASON FOR EXAM: ??fall See Comments to the Radiologist ?? COMPARISON: Head CT 04/10/2021, cervical spine radiographs 03/04/2020 TECHNIQUE: Axial CT images of the brain, and cervical spine were obtained without the use of IV contrast agent. ??A dose lowering technique was used for this procedure, which may include, but is not limited to, dose reduction technique, automated exposure control, iterative reconstruction, ALARA (As Low As Reasonably Achievable), or Image Gently techniques. FINDINGS: ?? Head: No acute intracranial hemorrhage or CT evidence of large territory infarct. Unilateral left-sided basal ganglia and thalamic calcification may be congenital or represent underlying incidental, vascular variant such as developmental venous anomaly. Periventricular and subcortical white matter hypodensities are seen, which likely represent sequelae of chronic microvascular change. There is no evidence of hydrocephalus, extraaxial fluid collection, mass effect or midline shift. ?? There is no acute displaced calvarial fracture. ?? Visualized paranasal sinuses and mastoid air cells are clear. Cervical spine: There is anterolisthesis of C2 on C3 measuring 6 mm. ??Mild retrolisthesis of C4 on C5. ??Loss of normal cervical lordosis. ??Scoliosis. Cervical vertebral body heights and alignment are otherwise preserved. There is no acute fracture or traumatic subluxation. No destructive osseous lytic or sclerotic lesions are seen. ??Multilevel degenerative changes. No significant paravertebral soft tissue abnormalities are appreciated. Visualized aspects of the lung apices are without mass or airspace consolidation. Procedure Note Howard Rodriguez MD - 12/19/2022 EXAMINATION: CT of the head, and cervical spine [id number] EXAM DATE/TIME: 12/19/2022 9:42 PM REASON FOR EXAM: fall See Comments to the Radiologist COMPARISON: Head CT 04/10/2021, cervical spine radiographs 03/04/2020 TECHNIQUE: Axial CT images of the brain, and cervical spine were obtainedwithout the use of IV contrast agent. A dose lowering technique was usedfor this procedure, which may include, but is not limited to, dosereduction technique, automated exposure control, iterative reconstruction,ALARA (As Low As Reasonably Achievable), or Image Gently techniques. FINDINGS: Head: No acute intracranial hemorrhage or CT evidence of large territoryinfarct. Unilateral left-sided basal ganglia and thalamic calcification may becongenital or represent underlying incidental, vascular variant such asdevelopmental venous anomaly. Periventricular and subcortical white matter hypodensities are seen, whichlikely represent sequelae of chronic microvascular change. There is no evidence of hydrocephalus, extraaxial fluid collection, masseffect or midline shift. There is no acute displaced calvarial fracture. Visualized paranasal sinuses and mastoid air cells are clear. Cervical spine: There is anterolisthesis of C2 on C3 measuring 6 mm. Mild retrolisthesisof C4 on C5. Loss of normal cervical lordosis. Scoliosis. Cervical vertebral body heights and alignment are otherwise preserved.There is no acute fracture or traumatic subluxation. No destructiveosseous lytic or sclerotic lesions are seen. Multilevel degenerativechanges. No significant paravertebral soft tissue abnormalities are appreciated. Visualized aspects of the lung apices are without mass or airspaceconsolidation. IMPRESSION: 1. No acute findings in the head and cervical spine. 2. Chronic microvascular change. 3. Multilevel degenerative changes in the cervical spine. 4. Additional findings as above. Referred By: Interpreted By: Howard Rodriguez Dr., 12/19/2022 10:24 PM us Walt Holm MD CT Final Res ult * CT HEAD WO CON (12/19/2022 10:15 PM CDT) Anatomical Region Laterality Modality Head Computed Tomogra phy 12/19/2022 10:2 4 PM CDT Impressions 12/19/2022 10:35 PM CDT IMPRESSION: 1. ??No acute findings in the head and cervical spine. 2. ??Chronic microvascular change. 3. ??Multilevel degenerative changes in the cervical spine. 4. ??Additional findings as above. Referred By: ?? Interpreted By: Howard Rodriguez Dr., 12/19/2022 10:24 PM Narrative 12/19/2022 10:35 PM CDT EXAMINATION: CT of the head, and cervical spine [id number] EXAM DATE/TIME: 12/19/2022 9:42 PM REASON FOR EXAM: ??fall See Comments to the Radiologist ?? COMPARISON: Head CT 04/10/2021, cervical spine radiographs 03/04/2020 TECHNIQUE: Axial CT images of the brain, and cervical spine were obtained without the use of IV contrast agent. ??A dose lowering technique was used for this procedure, which may include, but is not limited to, dose reduction technique, automated exposure control, iterative reconstruction, ALARA (As Low As Reasonably Achievable), or Image Gently techniques. FINDINGS: ?? Head: No acute intracranial hemorrhage or CT evidence of large territory infarct. Unilateral left-sided basal ganglia and thalamic calcification may be congenital or represent underlying incidental, vascular variant such as developmental venous anomaly. Periventricular and subcortical white matter hypodensities are seen, which likely represent sequelae of chronic microvascular change. There is no evidence of hydrocephalus, extraaxial fluid collection, mass effect or midline shift. ?? There is no acute displaced calvarial fracture. ?? Visualized paranasal sinuses and mastoid air cells are clear. Cervical spine: There is anterolisthesis of C2 on C3 measuring 6 mm. ??Mild retrolisthesis of C4 on C5. ??Loss of normal cervical lordosis. ??Scoliosis. Cervical vertebral body heights and alignment are otherwise preserved. There is no acute fracture or traumatic subluxation. No destructive osseous lytic or sclerotic lesions are seen. ??Multilevel degenerative changes. No significant paravertebral soft tissue abnormalities are appreciated. Visualized aspects of the lung apices are without mass or airspace consolidation. Procedure Note Howard Rodriguez MD - 12/19/2022 EXAMINATION: CT of the head, and cervical spine [id number] EXAM DATE/TIME: 12/19/2022 9:42 PM REASON FOR EXAM: fall See Comments to the Radiologist COMPARISON: Head CT 04/10/2021, cervical spine radiographs 03/04/2020 TECHNIQUE: Axial CT images of the brain, and cervical spine were obtainedwithout the use of IV contrast agent. A dose lowering technique was usedfor this procedure, which may include, but is not limited to, dosereduction technique, automated exposure control, iterative reconstruction,ALARA (As Low As Reasonably Achievable), or Image Gently techniques. FINDINGS: Head: No acute intracranial hemorrhage or CT evidence of large territoryinfarct. Unilateral left-sided basal ganglia and thalamic calcification may becongenital or represent underlying incidental, vascular variant such asdevelopmental venous anomaly. Periventricular and subcortical white matter hypodensities are seen, whichlikely represent sequelae of chronic microvascular change. There is no evidence of hydrocephalus, extraaxial fluid collection, masseffect or midline shift. There is no acute displaced calvarial fracture. Visualized paranasal sinuses and mastoid air cells are clear. Cervical spine: There is anterolisthesis of C2 on C3 measuring 6 mm. Mild retrolisthesisof C4 on C5. Loss of normal cervical lordosis. Scoliosis. Cervical vertebral body heights and alignment are otherwise preserved.There is no acute fracture or traumatic subluxation. No destructiveosseous lytic or sclerotic lesions are seen. Multilevel degenerativechanges. No significant paravertebral soft tissue abnormalities are appreciated. Visualized aspects of the lung apices are without mass or airspaceconsolidation. IMPRESSION: 1. No acute findings in the head and cervical spine. 2. Chronic microvascular change. 3. Multilevel degenerative changes in the cervical spine. 4. Additional findings as above. Referred By: Interpreted By: Howard Rodriguez Dr., 12/19/2022 10:24 PM us Walt Holm MD CT Final Res ult * XR ANKLE RT M3V (12/19/2022 9:11 PM CDT) Anatomical Region Laterality Modality Ankle Radiographic Sharon ging 12/19/2022 9:23 PM CDT Impressions 12/19/2022 9:25 PM CDT IMPRESSION: 1. ??No acute osseous abnormality. 2. ??Chronic distal fibular deformity. Referred By: ?? Interpreted By: Howard Rodriguez Dr., 12/19/2022 9:23 PM Narrative 12/19/2022 9:25 PM CDT Examination: 3 views right ankle Exam Date/Time: 12/19/2022 8:45 PM Reason For Exam: ??fall ?? Comparison: No existing relevant imaging study available. Technique: 3 views of the right ankle were obtained. Findings: No acute fracture or dislocation. No destructive osseous lytic or sclerotic lesions. Ankle mortise is intact. No radiopaque foreign bodies. ??Chronic deformity of the distal fibula. Procedure Note Howard Rodriguez MD - 12/19/2022 Examination: 3 views right ankle Exam Date/Time: 12/19/2022 8:45 PM Reason For Exam: fall Comparison: No existing relevant imaging study available. Technique: 3 views of the right ankle were obtained. Findings: No acute fracture or dislocation. No destructive osseous lyticor sclerotic lesions. Ankle mortise is intact. No radiopaque foreignbodies. Chronic deformity of the distal fibula. IMPRESSION: 1. No acute osseous abnormality. 2. Chronic distal fibular deformity. Referred By: Interpreted By: Howard Rodriguez Dr., 12/19/2022 9:23 PM us Walt Holm MD GENERAL IMAGING Final Res ult * ECG 12 lead (12/19/2022 9:00 PM CDT) 12/19/2022 9:00 PM CDT Narrative [facility] - 12/20/2022 5:04 PM CDT ? [facility] ?[address] [place], [place] ??[address] ? Test Date: ?2022-12-19 Pat Name: ? ALAYNA LAWRENCE ?Department: ?? 3 ? Room: ? EXAM 404 Gender: ? Female ? 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 : ?1950 ? Requested By: WALT HOLM Order Number: [id number] ? Reading MD: ?? Patric Schultz ? Measurements Intervals ?[place] ? Rate: ? 81 ? P: ?26 [place]: ? 160 ?QRS: ?-65 QRSD: ? 93 ? T: ?50 QT: ? 385 ? QTc: ?449 ? Interpretive Statements SINUS RHYTHM PATTERN CONSISTENT WITH PULMONARY DISEASE LEFT ANTERIOR FASCICULAR BLOCK Procedure Note Patric Schultz MD - 12/20/2022 [facility] [address] 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1950 Requested By: WALT HOLM Order Number: [id number] Reading MD: Patric Schultz Measurements Intervals [place] Rate: 81 P: 26 [place]: 160 QRS: -65 QRSD: 93 T: 50 QT: 385 QTc: 449 Interpretive Statements SINUS RHYTHM PATTERN CONSISTENT WITH PULMONARY DISEASE LEFT ANTERIOR FASCICULAR BLOCK Walt Holm MD ECG ORDERABLES Final Res ult [facility] * LACTIC ACID W REFLEX (SEPSIS) (12/19/2022 8:58 PM CDT) LACTIC ACID VENOUS 1.8 0.4 - 2.0 MMOL/L 12/19/2022 10:25 PM CDT [facility] 12/19/2022 8:58 PM CDT Walt Holm MD LABORATORY Final Res ult Performing Organization Address [facility] Co de Phone Number [facility] [address] [place] [address], * LIPASE (12/19/2022 8:58 PM CDT) LIPASE 56 16 - 77 UNITS/L 12/19/2022 9:28 PM CDT [facility] 12/19/2022 8:58 PM CDT Walt Holm MD LABORATORY Final Res ult Performing Organization Address [facility] Co de Phone Number [facility] [address] [place] [address], * (ABNORMAL) Blood gas, venous (12/19/2022 8:58 PM CDT) O2 SAT VENOUS 35(L) 40 - 70 % 12/19/2022 9:05 PM CDT [facility] PH VENOUS 7.25(L) 7.35 - 7.45 12/19/2022 9:05 PM CDT [facility] PCO2 VENOUS 45.9 41.0 - 51.0 MMHG 12/19/2022 9:05 PM CDT [facility] PO2 VENOUS 24.0 20.0 - 40.0 MM HG 12/19/2022 9:05 PM CDT [facility] BASE DEFICIT VENOUS 7.3 MMOL/L 12/19/2022 9:05 PM CDT [facility] BICARB VENOUS 19.4(L) 22.0 - 29.0 MMOL/L 12/19/2022 9:05 PM CDT [facility] TOTAL CO2 VENOUS 20.8(L) 25.0 - 29.0 MMOL/L 12/19/2022 9:05 PM CDT [facility] LITERS OF O2 ROOM AIR 12/19/2022 9:02 PM CDT [facility] 12/19/2022 8:58 PM CDT us Walt Holm MD LABORATORY Final Res ult [facility] [address] [place] [address], * (ABNORMAL) CBC W/DIFF AUTOMATED (12/19/2022 8:58 PM CDT) WBC 10.58 4.00 - 10.80 x10'3/uL 12/19/2022 9:11 PM CDT [facility] RBC 4.42 4.10 - 5.40 x10'6/uL 12/19/2022 9:11 PM CDT [facility] HGB 13.4 12.0 - 16.0 G/DL 12/19/2022 9:11 PM CDT [facility] HCT 41.8 36.0 - 47.0 % 12/19/2022 9:11 PM CDT [facility] MCV 94.6 78.0 - 100.0 FL 12/19/2022 9:11 PM CDT [facility] MCH 30.3 27.0 - 31.0 PG 12/19/2022 9:11 PM CDT [facility] MCHC 32.1(L) 33.0 - 36.0 G/DL 12/19/2022 9:11 PM CDT [facility] RDW 13.6 11.5 - 14.5 % 12/19/2022 9:11 PM CDT [facility] PLT 229 150 - 350 x10'3/uL 12/19/2022 9:11 PM CDT [facility] MPV 10.1 7.4 - 10.4 FL 12/19/2022 9:11 PM CDT [facility] CBC COMMENT NORMAL REFERENCE RANGE NOT ESTABLISHED FOR THE PROPORTIONAL LEUKOCYTE DIFFERENTIAL. 12/19/2022 9:11 PM CDT [facility] NEUTROPHILS % 80.0 % 12/19/2022 9:11 PM CDT [facility] LYMPHOCYTES % 8.6 % 12/19/2022 9:11 PM CDT [facility] MONOCYTES % 10.1 % 12/19/2022 9:11 PM CDT [facility] EOSINOPHILS % 0.5 % 12/19/2022 9:11 PM CDT [facility] BASOPHILS % 0.3 % 12/19/2022 9:11 PM CDT [facility] IMMATURE GRANS % 0.5 % 12/20/19 9:11 PM CDT [facility] NRBC 0.0 % 12/19/2022 9:11 PM CDT [facility] ABS. NEUTROPHILS 8.47(H) 1.60 - 8.30 x10'3/uL 12/19/2022 9:11 PM CDT [facility] ABS. LYMPHOCYTES 0.91 0.80 - 4.70 x10'3/uL 12/19/2022 9:11 PM CDT [facility] ABS. MONOCYTES 1.07 0.00 - 1.50 x10'3/uL 12/19/2022 9:11 PM CDT [facility] ABS. EOSINOPHILS 0.05 0.00 - 0.40 x10'3/uL 12/19/2022 9:11 PM CDT [facility] ABS. BASOPHILS 0.03 0.00 - 0.20 x10'3/uL 12/19/2022 9:11 PM CDT [facility] ABS. IMMATURE GRANULOCYTES 0.05(H) 0.00 - 0.03 x10'3/uL 12/19/2022 9:11 PM CDT [facility] ABS. NUCLEATED RBC'S 0.00 0.00 x10'3/uL 12/19/2022 9:11 PM CDT [facility] 12/19/2022 8:58 PM CDT us Walt Holm MD LABORATORY Final Res ult [facility] [address] [place] [address], * (ABNORMAL) COMPREHENSIVE METABOLIC PANEL (12/19/2022 8:58 PM CDT) SODIUM S/P/B 143 136 - 145 MMOL/L 12/19/2022 9:28 PM CDT [facility] POTASSIUM S/P/B 3.7 3.5 - 5.1 MMOL/L 12/19/2022 9:28 PM CDT [facility] CHLORIDE S/P/B 108(H) 98 - 107 MMOL/L 12/19/2022 9:28 PM CDT [facility] CO2 23.1 21.0 - 32.0 MMOL/L 12/19/2022 9:28 PM CDT [facility] GLUCOSE 143(H) 70 - 99 MG/DL 12/19/2022 9:28 PM CDT [facility] Comment: FASTING GLUCOSE 100 TO 125 MG/DL IS CONSISTENT WITH IMPAIRED FASTING GLUCOSE. FASTING GLUCOSE >125 MG/DL IS CONSISTENT WITH DIABETES. RANDOM GLUCOSE >200 MG/DL WITH HYPERGLYCEMIC SYMPTOMS IS CONSISTENT WITH DIABETES. PER ADA GUIDELINES BUN 78(H) 6 - 24 MG/DL 12/19/2022 9:28 PM CDT [facility] CREATININE S/P/B 4.70(H) 0.55 - 1.02 MG/DL 12/19/2022 9:28 PM CDT [facility] CALCIUM S/P/B 8.9 8.4 - 10.5 MG/DL 12/19/2022 9:28 PM CDT [facility] BILIRUBIN TOTAL S/P/B 0.6 0.2 - 1.0 MG/DL 12/19/2022 9:28 PM T [facility] Comment: THIS ASSAY IS NOT RECOMMENDED FOR PATIENTS UNDERGOING TREATMENT WITH ELTROMBOPAG DUE TO THE POTENTIAL FOR FALSELY ELEVATED RESULTS. ALKALINE PHOSPHATASE S/P/B 101 55 - 142 U/L 12/19/2022 9:28 PM T [facility] AST 14(L) 15 - 37 U/L 12/19/2022 9:28 PM T [facility] ALT 16 14 - 59 U/L 12/19/2022 9:28 PM T [facility] TOTAL PROTEIN S/P/B 7.5 6.4 - 8.2 G/DL 12/19/2022 9:28 PM T [facility] ALBUMIN S/P/B 3.6 3.4 - 5.0 G/DL 12/19/2022 9:28 PM T [facility] ANION GAP 11.9 5.0 - 15.0 MMOL/L 12/19/2022 9:28 PM T [facility] OSMOLALITY (CALC) 322 MOSM/KG 023 9:28 PM T [facility] Comment:REFERENCE RANGE NOT ESTABLISHED GFR ESTIMATE 9(L) >89 ML/MIN/1. 73 M2 12/19/2022 9:28 PM T [facility] GFR NOTES GFR REFERENCE S: 12/19/2022 9:28 PM T [facility] Comment: THE ESTIMATED GFR IS CALCULATED [...] ml/min/1.73 m2 G5,KIDNEY FAILURE: <15 ml/min/1.73 m2 12/19/2022 8:58 PM CDT us Walt Holm MD LABORATORY Final Res ult Performing Organization Address City/[facility] Co de Phone Number [facility] [address] [place] [address], * TROPONIN, QUANT (12/19/2022 8:58 PM CDT) TROPONIN I HIGH SENSITIVITY 27 0 - 51 ng/L 12/19/2022 9:28 PM CDT [facility] 12/19/2022 8:58 PM CDT us Walt Holm MD LABORATORY Final Res ult Performing Organization Address [facility]/ZIP Co de Phone Number [facility] [address] [place] [address], [place] [phone] * MAGNESIUM (12/19/2022 8:58 PM CDT) MAGNESIUM 2.4 1.8 - 2.4 MG/DL 12/19/2022 9:28 PM CDT [facility] 12/19/2022 8:58 PM CDT us Walt Holm MD LABORATORY Final Res ult Performing Organization Address City/[facility]/ZIP Co de Phone Number [facility] [address] [place] [address] [place] [address], * (ABNORMAL) PRO-BRAIN NATRIURETIC PEPTIDE (12/19/2022 8:58 PM CDT) PRO-B TYPE NATRIURETIC PEPTIDE 2,488(H) <125 PG/ML 12/19/2022 9:28 PM CDT [facility] Comment: CUT POINTS ESTABLISHED [...] OF 89% AND 72% FOR ACUTE CHF. 12/19/2022 8:58 PM CDT Walt Holm MD LABORATORY Final Res ult [facility] Counts include 234 beds at the [facility] [place] [address], documented in this encounter Visit Diagnoses Diagnosis MOIRA (acute kidney injury) (CMS/HCC)- Primary Acute kidney failure, unspecified CKD (chronic kidney disease) Chronic kidney disease, unspecified Encephalopathy Encephalopathy, unspecified documented in this encounter Administered Medications Inactive Administered Medications - up to 3 most recent administrations Medication Order MAR Action Action Date Dose Rate Site sodium chloride 0.9% bolus infusion 500 mL 500 mL, Intravenous, Administer over 30 Minutes, Once, 1 dose, On Sun12/19/22 at 2315 New Bag 12/19/2022 11:13 PM CDT 500 mLs documented in this encounter Active and Recently Administered Medications Times are shown in CDT. Scheduled Medication Order 12/18/2022 12/19/2022 12/20/2022 sodium chloride 0.9% bolus infusion 500 mL (COMPLETED) 500 mL, Intravenous, Administer over 30 Minutes, Once, 1 dose, On Sun12/19/22 at 2315 2313 (New Bag - Provider: Laly Power, RN)[phone] (Infusion Stop Time - Provider: Laly Power RN) documented in this encounter Care Teams Airport Guide Relationship Specialty Start Date End Date Jasson Cueva MD [address] [place] [phone] PCP - General FAMILY PRACTICE 11/03/18 Huber Milligan MD [address] [place] [phone] Consulting Physician Vascular Neurology 04/30/19 Norm Hopkins MD [address] [place] [id number] Consulting Physician CLINICAL CARDIAC ELECTROPHYSIOLOGY 04/30/19 documented as of this encounter
--- OUTSIDE RECORDS SUMMARY | 2024-03-19 18:38 | XMS_ITS | Encounter Summary ---
Author Organization [facility] Address [facility] [place]. [place], [place] [id number] [place] [id number] Care Team Providers Care Product Merchandiser Name Role Phone Jasson Cueva MD Primary Care Provider Huber Milligan MD Unavailable [phone] Norm Hopkins MD Unavailable [phone] Reason for Referral * Imaging (Urgent) - Closed Specialty Diagnoses / Procedures Referred By Jayce coronado Referred To Contact RADIOLOGY Procedures CT CHEST WO CON Bhumika Fair MD Phone: tel: fax: Referral ID Status Reason Start Date Expiration Date Visits Re quested Visits Authorized [id number] Closed 02/27/2023 02/28/2024 1 1 STACK ENGINEER Reason for Visit * Reason Comments Breast Pain Shortness Of Breath Encounter Details Date Type Department Care Team (Late st Contact Info) Description 02/27/2023 11:31 AM FULL STACK ENGINEER - 02/27/2023 11:04 PM FULL STACK ENGINEER Emergency [facility] Emergency Room [id number] [place] [id number] Bhumika Fair MD [address] [place] [id number] Breast Pain; Shortness Of Breath Discharge Disposition: Transfer to Acute Care Hospital [...] often do you attend chur ch or latter day services? Never 12/20/2022 Do you belong to any clubs o r organizations such as anglican groups, unions, fraternal or athletic groups, or [...] and heating? Not hard at all 12/20/2022 [facility] [place] of Occupat ional Health - Occupational Stress [...] on file Legal 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 FULL STACK ENGINEER Gender Identity Not on file Sexual Orientation Not on file documented as of this encounter Last Filed Vital Signs Vital Sign Reading Time Taken Comments Blood Pressure 112/66 02/27/2023 10:45 PM FULL STACK ENGINEER Pulse 69 02/27/2023 10:45 PM FULL STACK ENGINEER Temperature 36.1 ??C (97 ??F) 02/27/2023 11:31 AM FULL STACK ENGINEER Respiratory Rate 17 02/27/2023 10:45 PM FULL STACK ENGINEER Oxygen Saturation 92% 02/27/2023 10:45 PM FULL STACK ENGINEER Inhaled Oxygen Concentration - - Weight 77.1 kg (170 lb) 02/27/2023 11:31 AM FULL STACK ENGINEER Height 170.2 cm (5' 7 ) 02/27/2023 11:31 AM FULL STACK ENGINEER Body Mass Index 26.63 02/27/2023 11:31 AM FULL STACK ENGINEER documented in this encounter Functional Status * [...] Date Author Status No 01/08/2023 8:00 PM CDaSra Eduardo R N Active documented in this encounter Medications at Time of Discharge amLODIPine 5 MG tablet 1 tablet (5 mg total) daily. 12/21/2020 aspirin EC 81 MG tablet Take 1 tablet (81 mg total) by mouth daily. furosemide (LASIX) 20 MG tabletIndication s:on non dialysis days Take 2 tablets (40 mg total) by mouth. Indications: on non dialysis days metoprolol succinate ER (TOPROL-XL) 25 MG 24 hr tablet Take 1 tablet (25 mg total) by mouth daily for 30 days. 30 tablet 01/06/2023 vitamin D3, cholecalciferol, 5000 UNITS capsule Take 1 capsule (125 mcg total) by mouth daily. gabapentin (NEURONTIN) 100 MG capsule Take 1 capsule (100 mg total) by mouth 3 (three) times daily for 60 days. 90 capsule 1 01/02/2023 03/03/2023 HYDROcodone-acet aminophen (NORCO) 5-325 MG tabletIndication s:Acute Pain < 7 Day Supply Take 1 tablet by mouth every 6 (six) hours as needed. Indications: Acute Pain < 7 Day Supply 10 tablet 01/05/2023 11/22/2023 omeprazole (PRILOSEC) 20 MG capsule Take 1 capsule (20 mg total) by mouth daily. 02/05/2024 documented as of this encounter ED Notes * Violet Vanegas RN - 02/27/2023 11:03 PM CST Patient's son given update on transfer to [place] [id number] and departure from ED. STACK ENGINEER * Violet Vanegas RN - 02/27/2023 11:00 PM CST Juana at [facility] given update on departure. STACK ENGINEER * Violet Vanegas RN - 02/27/2023 10:58 PM CST Report given to [facility]. STACK ENGINEER * Violet Vanegas RN - 02/27/2023 10:40 PM CST Linda at [facility] notified of patient transfer to [facility]. STACK ENGINEER * Violet Vanegas RN - 02/27/2023 10:34 PM CST [facility] Dispatch called for transport. STACK ENGINEER * Violet Vanegas RN - 02/27/2023 9:37 PM CST Lucero at [facility] Transfer center notified of patient refusal for bed at [facility] r/t available bed at different facility. STACK ENGINEER * Violet Vanegas RN - 02/27/2023 9:[address] [facility] assigned bed and [facility] assigned bed to patient. Patient and son given choice on placement. Patient and son Zack agreed on [facility]. STACK ENGINEER * Violet Vanegas RN - 02/27/2023 7:35 PM CST Face sheet faxed to [facility] transfer center STACK ENGINEER * Violet Vanegas RN - 02/27/2023 7:20 PM CST Patient signed refusal for transfer form to [facility]. STACK ENGINEER * Violet Vanegas RN - 02/27/2023 7:19 PM CST Spoke with Soraya at [facility] transfer center. Soraya to call back with bed assignment. STACK ENGINEER * Violet Vanegas RN - 02/27/2023 7:11 PM CST Spoke with Kerri at [facility] transfer [place]. STACK ENGINEER * Marimar Ferris RN - 02/27/2023 6:58 PM CST Call to [facility] transfer center, spoke with Soraya at this time. STACK ENGINEER * Violet Vanegas RN - 02/27/2023 6:39 PM CST MD at bedside speaking with patient and family about transfer to [facility]. STACK ENGINEER * Violet Vanegas RN - 02/27/2023 5:34 PM CST Spoke with at [facility]. Report given to . Per mathieu Smith to send patient, room onarrival to [facility], patient will be going to a medical bed. STACK ENGINEER * Violet Vanegas RN - 02/27/2023 4:53 PM CST Dinner order placed for patient. STACK ENGINEER * Marimar Ferris RN - 02/27/2023 4:34 PM CST Callback received from patients son whom states her Roving Marker is Dr. Walter in [facility]. STACK ENGINEER * Violet Vanegas RN - 02/27/2023 4:01 PM CST Spoke with plumbing warehouse helper at [facility] about potential transfer. Manager Motor to callback. STACK ENGINEER * Violet Vanegas RN - 02/27/2023 3:56 PM CST Patient verbalized permission to talk to son Zack about plan of care. Per Zack, if patient needs araceli admitted, he would like to be called and does not want his mother admitted to any [facility] hospital.Dr. Fair notified. STACK ENGINEER * Bhumika Fiar MD - 02/27/2023 12:02 PM CST Chief Complaint Chief Complaint Patient presents with Breast Pain Shortness Of Breath History of Present Illness Patient is a 72-year-old female who presents complains of right chest pain in her inframammary area. She does not recall any trauma. She reports the pain is worse on movement. No cough or sore throat. No fever or chills. She has a history of end-stage renal disease on dialysis and does dialysis Wednesdays and Fridays. Pain began yesterday whilst at dialysis. Medical History ALLERGIES: Review of patient's allergies [...] tablet (20 mg total) by mouth daily. Yes Default History Genericprovider gabapentin (NEURONTIN) 100 MG capsule Take 1 capsule (100 mg total) by mouth 3 (three) times daily for 60 days. 01/02/23 03/03/23 Yes Francisco Franklin MD HYDROcodone-acetaminophen (NORCO) 5-325 MG tablet Take 1 tablet by mouth every 6 (six) hours as needed. Indications: Acute Pain < 7 Day Supply Patient taking differently: Take 1 tablet by mouth every 6 (six) hours as needed for Pain. Indications: Acute Pain < 7 Day Supply 01/05/23 Yes Ajit Salmon MD metoprolol succinate ER (TOPROL-XL) 25 MG 24 hr tablet Take 1 tablet (25 mg total) by mouth daily for 30 days. 01/06/23 02/27/23 Yes Ajit Salmon MD omeprazole (PRILOSEC) 20 MG capsule Take 1 capsule (20 mg total) by mouth daily. Yes Default History Genericprovider vitamin D3, cholecalciferol, 5000 UNITS capsule Take 1 capsule (125 mcg total) by mouth daily. Yes Doc [facility] Abstract PAST MEDICAL HISTORY: Past Medical History: Diagnosis Date Acute kidney failure, unspecified ([facility]) Acute pulmonary edema ([facility]) ([facility]) CHF (congestive heart failure) ([facility]) ([facility]) Chronic kidney disease, stage IV (severe) ([facility]) ([facility]) CKD (chronic kidney disease) stage 3, GFR 30-59 ml/min ([facility]) COPD (chronic obstructive pulmonary disease) ([facility]) ([facility]) Depression Displaced fracture of proximal end of right humerus 11/06/2018 Hemiplegia and hemiparesis following cerebral infarction affecting right dominant side ([facility]) ([facility]) HLD (hyperlipidemia) Hypertension Hypertensive chronic kidney disease with stage 1 through stage 4 chronic kidney disease, or unspecified chronic kidney disease Ischemic stroke ([facility]) ([facility]) Memory deficit following other cerebrovascular disease Metabolic encephalopathy Neuropathy Osteoarthritis Other cholelithiasis without obstruction Other specified spondylopathies, cervical region ([facility]) Presence of other cardiac implants and grafts Unstable angina ([facility]) ([facility]) UTI (urinary tract infection) PAST SURGICAL HISTORY: Past Surgical History: Procedure Laterality Date DIALYSIS ACCESS SYSTEM Right JOINT REPLACEMENT SHOULDER SURGERY TOTAL HIP ARTHROPLASTY bilateral FAMILY HISTORY: Family History Problem Relation Name Age of Onset Heart Attack Mother SOCIAL HISTORY: Social History Tobacco Use Smoking status: Former Packs/day: 1 Types: Cigarettes Smokeless tobacco: Never Vaping Use Vaping Use: Never used Substance Use Topics Alcohol use: Not Currently Drug use: Not Currently Types: Marijuana Review of Systems Review of Systems Constitutional: Negative for chills and fever. HENT: Negative for ear pain and sore throat. Eyes: Negative for visual disturbance. Respiratory: Positive for shortness of breath. Negative for cough and wheezing. Cardiovascular: Positive for chest pain. Negative for palpitations and leg swelling. Gastrointestinal: Negative for abdominal pain, nausea and vomiting. Endocrine: Negative. Genitourinary: Negative for dysuria, flank pain and frequency. Musculoskeletal: Negative for back pain and neck pain. Skin: Negative for rash. Allergic/Immunologic: Negative. Neurological: Negative for dizziness and headaches. Psychiatric/Behavioral: Negative. Physical Exam Filed Vitals: 02/27/23 2201 02/27/23 2215 02/27/23 2230 02/27/23 2245 BP: 107/70 118/68 118/69 112/66 Pulse: 74 68 67 69 Resp: 15 15 15 17 Temp: TempSrc: SpO2: 92% 92% 90% 92% Weight: Height: Physical Exam Vitals and nursing note reviewed. Constitutional: General: She is in acute distress. Appearance: Normal appearance. HENT: Head: Normocephalic. Nose: Nose normal. Mouth/Throat: Mouth: Mucous membranes are moist. Eyes: Conjunctiva/sclera: Conjunctivae normal. Cardiovascular: Rate and Rhythm: Normal rate and regular rhythm. Heart sounds: Normal heart sounds. Pulmonary: Effort: Pulmonary effort is normal. Breath sounds: Normal breath sounds. Chest: Chest wall: Tenderness (Right inframammary area) present. Abdominal: General: Bowel sounds are normal. Palpations: Abdomen is soft. Tenderness: There is no abdominal tenderness. Musculoskeletal: General: No swelling or tenderness. Normal range of motion. Cervical back: Normal range of motion and neck supple. Neurological: General: No focal deficit present. Mental Status: She is alert and oriented to person, place, and time. Psychiatric: Mood and Affect: Mood normal. Diagnostic Studies / Procedures ELECTROCARDIOGRAMS: Results for orders placed or performed during the hospital encounter of 02/27/23 ECG 12 lead Narrative [facility] Test Date: 2023-02-27 Pat Name: ALAYNA LAWRENCE Department: 85 Room: [place] [address] Gender: Female Shank Inspector: : [id number] Requested By: BHUMIKA FAIR Order Number: [id number] [place] MD: Measurements Intervals [place] Rate: 63 P: 38 AR: 163 QRS: -58 QRSD: 97 T: 62 QT: 432 QTc: 444 Interpretive Statements SINUS RHYTHM PATTERN CONSISTENT WITH PULMONARY DISEASE LEFT ANTERIOR FASCICULAR BLOCK [QRS AXIS <= -45, QR IN I, RS IN II] Compared to ECG 12/19/2022 21:00:37 No significant changes LABORATORY STUDIES: Results for orders placed or performed during the hospital encounter of 02/27/23 CBC W/DIFF AUTOMATED Result Value Ref Range WBC 9.39 4.4 - 11.0 x10'3/uL RBC 3.80 (L) 4.50 - 5.10 x10'6/uL HGB 12.0 (L) 12.3 - 15.3 G/DL HCT 37.0 35.9 - 44.6 % MCV 97.4 (H) 80.0 - 96.0 FL MCH 31.6 (H) 25.3 - 30.9 PG MCHC 32.4 31.0 - 34.1 G/DL RDW 13.8 12.4 - 15.1 % PLT 238 151 - 353 x10'3/uL MPV 10.3 9.6 - 12.0 FL RBC MORPHOLOGY NORMAL PLT MORPH. NORMAL WBC MORPHOLOGY NORMAL LYMPHOCYTES 15.8 15.8 - 45.0 % NEUTROPHILS 71.5 42.1 - 71.9 % MONOCYTES 8.7 5.7 - 12.5 % EOSINOPHILS 3.3 0.0 - 5.6 % BASOPHILS 0.4 0.0 - 1.3 % ABS. NEUTROPHILS 6.71 (H) 1.40 - 6.00 x10'3/uL IMMATURE GRANS 0.3 0.0 - 0.5 % ABS. LYMPHOCYTES 1.48 0.80 - 4.70 x10'3/uL COMPREHENSIVE METABOLIC PANEL Result Value Ref Range GLUCOSE 101 (H) 70 - 99 MG/DL BUN 37 (H) 7 - 18 MG/DL CREATININE S/P/B 4.50 (H) 0.55 - 1.02 MG/DL SODIUM S/P/B 138 136 - 145 MMOL/L POTASSIUM S/P/B 4.0 3.5 - 5.1 MMOL/L CHLORIDE S/P/B 99 (L) 100 - 108 MMOL/L CO2 28.6 21 - 32 MMOL/L CALCIUM S/P/B 9.1 8.5 - 10.1 MG/DL BILIRUBIN TOTAL S/P/B 0.3 0.2 - 1.2 MG/DL TOTAL PROTEIN S/P/B 7.7 6.4 - 8.2 G/DL ALBUMIN S/P/B 3.6 3.4 - 5.0 G/DL AST 17 15 - 37 U/L ALT 19 14 - 55 U/L ALKALINE PHOSPHATASE S/P/B 103 50 - 136 U/L ANION GAP 10.4 5 - 15 MMOL/L BUN CREATININE RATIO 8.2 6 - 26 A/G RATIO 0.9 (L) 1.0 - 2.0 RATIO GFR ESTIMATE 10 (L) >90 ML/MIN/1.73 M2 TROPONIN, QUANT Result Value Ref Range TROPONIN I HIGH SENSITIVITY 7 <51 ng/L LIPASE Result Value Ref Range LIPASE 61 16 - 77 UNITS/L PRO-BRAIN NATRIURETIC PEPTIDE Result Value Ref Range PRO-B TYPE NATRIURETIC PEPTIDE 1,272 (H) <125 PG/ML MAGNESIUM Result Value Ref Range MAGNESIUM 2.2 1.8 - 2.4 MG/DL ARTERIAL BLOOD GAS Result Value Ref Range PH ARTERIAL 7.39 7.35 - 7.45 PCO2 40.2 32 - 45 MM HG PO2 64 (L) 83 - 108 MM HG BICARB ARTERIAL 23.9 21 - 28 MMOL/L BASE DEFICIT 0.4 0 - 2 MMOL/L TOTAL CO2 ARTERIAL 25.1 22 - 28 MMOL/L O2 SATURATION 93.4 (L) 95.0 - 99.0 % CARBON MONOXIDE 1.6 (H) 0.5 - 1.5 % METHEMOGLOBIN 0.0 0.0 - 1.5 % O2 ADMIN 3 LITERS PER MINUTE DRAW SITE DRAWN FROM RIGHT ARM % O2 HEMOGLOBIN ARTERIAL 92.3 (L) 94.0 - 98.0 % REDUCED HGB ARTERIAL 6.5 (H) 0.0 - 5.0 % CORONAVIRUS (COVID-19) MOLECULAR Specimen: NASOPHARYNGEAL SWAB Result Value Ref Range CORONAVIRUS SARS COV 2 RNA NEGATIVE NEGATIVE Specimen Type NASAL IMAGING STUDIES CT CHEST WO CON Final Result by User, [id number] (02/27 0865) IMAGING STUDIES: CT CHEST WO CON DATE: 02/27/2023 12:18 PM COMPARISON STUDIES: 10/02/2022 CLINICAL HISTORY: Diffuse/interstitial lung disease . Intermittent right-sided chest pain. Shortness of breath. Hypertension. COPD. . Radiation dose reduction technique was utilized. FINDINGS: 1. Development of mild atelectasis within both lung bases. Slightly greater on the right side. No pleural effusion or pneumothorax.. 2. Development of acute appearing mildly displaced fracture of the posterior lateral right seventh rib on image 53 of series 3. Multiple other old healed right-sided rib fractures... 3. Mild to moderate mucosal thickening of the bilateral bronchial jackson. Greater in the lower lobes. May be due to bronchitis versus reactive airway disease 4. Stable mild scar formation in the lingular segment in right middle lobe.. Also development of mild atelectasis within the anterior right upper lobe. Similar emphysematous change with scattered bleb formation and mild scar formation. 5. Atherosclerotic aorta without dilatation. No pericardial effusion. No pathologic lymphadenopathy or pulmonary nodules. Advanced coronary artery calcifications.. Left-sided central line with tip in mid superior vena cava. 6. Upper abdomen with normal adrenals. Fatty superior liver. Partially visualized gallbladder with calculi. Atrophic left kidney. Mildly atrophic right kidney with difficult to characterize cystic lesions. Follow-up with outpatient ultrasound. Degenerative change in thoracic spine. Loop recorder overlying the left chest. IMPRESSION: 1. Acute-appearing mildly displaced fracture of the posterior lateral right seventh rib as detailed above. Multiple other old healed right-sided rib fractures. 2. Development of mild atelectasis in both lung bases, greater on the right side. No pleural effusion or pneumothorax. 3. Peribronchial wall thickening as detailed above. May be due to bronchitis versus reactive airway disease. 4. Similar emphysematous changes. Ordered By: BHUMIKA FAIR Interpreted By: Remi Crespo, 02/27/2023 2:53 PM ED Course / Medical Decision Making Medical Decision Making Patient presented with COPD exacerbation and noted right rib fracture. Patient is on dialysis therapy. Patient was requiring supplemental oxygen during observation in the ED. Patient was treated witha DuoNeb treatment and Solu- Medrol and Zithromax IV. She felt improvement and will transfer to the higher level of care due to her dialysis needs. Problems Addressed: Closed rib fracture: acute illness or injury COPD exacerbation (HHS/HCC) ([facility]): acute illness or injury Amount and/or Complexity of Data Reviewed Labs: ordered. Radiology: ordered. ECG/medicine tests: ordered. Risk Decision regarding hospitalization. Critical Care Total time providing critical care: 60 minutes ED Course as of 02/28/23 0832 SunFeb 27, 2023 1556 Called [facility] for possible admission for COPD exacerbation and need for dialysis bed. [AK] [address] Montoya who agreed to accept patient for transfer to [facility]. [AK] [address] Beltran at [facility]. He agreed to accept patient for transfer. [AK] 1914 Patient was accepted by [facility]. Family adamant about not transferring her to any [facility] facility. Patient was initially agreeable to [facility] [AK] 1917 Case discussed with [facility]. Awaiting hospitalist to call back. She will try [facility] first. [AK] [address] Arreguin who agreed to admit under Dr. Webb at [facility]. [AK] ED Course User Index [AK] Bhumika Fair MD Clinical Impression Closed rib fracture (Primary) COPD exacerbation (HHS/HCC) (CMS/HCC) ESRD (end stage renal disease) on dialysis (HHS/HCC) (CMS/HCC) Disposition: Transfer to Another Facility Bhumika Fair MD 02/28/23 0834 STACK ENGINEER * Marimar Ferris RN - 02/27/2023 11:37 AM CST 72 year old female in [facility] from [facility] with complaints of of intermittent right sided breast pain and shortness of breath that began last night after arriving home from dialysis. Patient states the pain is not present at this time and denies pain, patient has congested cough. Patient alert and oriented, dialysis MWF and states she began treatment approx 6 weeks ago. STACK ENGINEER documented in this encounter Plan of Treatment [...] Procedure Name Priority Date/Time Associated Diagnosis Comments CORONAVIRUS (COVID 19) STAT 8:24 PM FULL STACK ENGINEER BLOOD GAS, ARTERIAL LAB STAT 02/27/2023 4:[address] CHEST WO CON STAT 02/27/2023 12:41 PM FULL STACK ENGINEER PRO-BRAIN NATRIURETIC PEPTIDE STAT 02/27/2023 11:45 AM FULL STACK ENGINEER COMPREHENSIVE METABOLIC PANEL STAT 02/27/2023 11:45 AM FULL STACK ENGINEER CBC W/DIFF AUTOMATED STAT 02/27/2023 11:45 AM FULL STACK ENGINEER TROPONIN, QUANT STAT 02/27/2023 11:45 AM FULL STACK ENGINEER MAGNESIUM STAT 02/27/2023 11:45 AM FULL STACK ENGINEER LIPASE STAT 02/27/2023 11:45 AM FULL STACK ENGINEER ECG 12-LEAD Routine 02/27/2023 11:37 AM FULL STACK ENGINEER documented in this encounter Results * CORONAVIRUS (COVID-19) MOLECULAR (02/27/2023 8:24 PM FULL STACK ENGINEER) CORONAVIRUS SARS COV 2 RNA NEGATIVE NEGATIVE 02/27/2023 8:57 PM FULL STACK ENGINEER [facility] Comment: NEGATIVE RESULTS DO NOT RULE OUT COVID 19 AND SHOULD NOT BE USED THE SOLE BASIS FOR TREATMENT OR PATIENT MANAGEMENT DECISIONS, INCLUDING INFECTION CONTROL DECISIONS. NEGATIVE RESULTS SHOULD BE CONSIDERED IN THE CONTEXT OF A PATIENT'S RECENT EXPOSURES, HISTORY AND THE PRESENCE OF CLINICAL SIGNS AND SYMPTOMS CONSISTENT WITH COVID 19. THE ID NOW COVID-19 2.0 TEST HAS BEEN AUTHORIZED BY THE FDA UNDER EAU FOR USE BY AUTHORIZED LABORATORIES. PERFORMED BY NUCLEIC ACID AMPLIFICATION FOR MOLECULAR QUALITATIVE DETECTION OF SARS-COV-2. SPECIMEN TYPE NASAL 02/27/2023 8:29 PM FULL STACK ENGINEER [facility] NASOPHARYNGEAL SWAB / Unknown 02/27/2023 8:24 PM FULL STACK ENGINEER us Bhumika Fair MD MICROBIOLOGY - GENERAL OR DERABLES Final Result [facility] [address] [place] [address], [place] [phone] * (ABNORMAL) ARTERIAL BLOOD GAS (02/27/2023 4:00 PM FULL STACK ENGINEER) [facility] PH ARTERIAL 7.39 7.35 - 7.45 02/27/2023 4:06 PM [facility] PCO2 40.2 32 - 45 MM HG 02/27/2023 4:06 PM [facility] PO2 64(L) 83 - 108 MM HG 02/27/2023 4:06 PM [facility] BICARB ARTERIAL 23.9 21 - 28 MMOL/L 02/27/2023 4:06 PM [facility] BASE DEFICIT 0.4 0 - 2 MMOL/L 02/27/2023 4:06 PM [facility] TOTAL CO2 ARTERIAL 25.1 22 - 28 MMOL/L 02/27/2023 4:06 PM [facility] O2 SATURATION 93.4(L) 95.0 - 99.0 % 02/27/2023 4:06 PM [facility] CARBON MONOXIDE 1.6(H) 0.5 - 1.5 % 02/27/2023 4:06 PM [facility] Comment: CARBOXYHEMOGLOBIN RANGES NONSMOKER ? 0.5-1.5% MODERATE SMOKER ? <2.3% SMOKER ?2.1-4.2% HEAVY SMOKER ?8-9% METHEMOGLOBIN 0.0 0.0 - 1.5 % 02/27/2023 4:06 PM [facility] Comment: SYMPTOMS ASSOCIATED WITH HIGHER LEVELS OF METHEMOGLOIN ARE FOLLOWS. PERCENT ?? SYMPTOMS 15-20% ?? CYANOSIS 25-50% ?? HEADACHE, DYSPNEA, LIGHTHEADEDNESS, SYNSCOPE, ? WEAKNESS, PALPITATIONS 50-75% ?? ABNORMAL CARDIAC RHYTHMS, ALTERED MENTAL ? DELIRIUM, SEIZURES, COMA, PROFOUND ACIDOSIS >70% ? O2 ADMIN VENOUS 3 LITERS PER MINUTE 02/27/2023 4:06 PM FULL STACK ENGINEER [facility] DRAW SITE DRAWN FROM RIGHT ARM 02/27/2023 4:06 PM FULL STACK ENGINEER [facility] % O2 HEMOGLOBIN ARTERIAL 92.3(L) 94.0 - 98.0 % 02/27/2023 4:06 PM FULL STACK ENGINEER [facility] REDUCED HGB ARTERIAL 6.5(H) 0.0 - 5.0 % 02/27/2023 4:06 PM FULL STACK ENGINEER [facility] 02/27/2023 4:00 PM FULL STACK ENGINEER us Bhumika Fair MD LABORATORY Final Res ult [facility] [address] [place] [address], * CT CHEST WO CON (02/27/2023 12:41 PM FULL STACK ENGINEER) Anatomical Region Laterality Modality Chest Computed Tomogra phy 02/27/2023 2:53 PM FULL STACK ENGINEER Impressions 02/27/2023 3:12 PM FULL STACK ENGINEER IMPRESSION: 1. ??Acute-appearing mildly displaced fracture of the posterior lateral right seventh rib as detailed above. Multiple other old healed right-sided rib fractures. 2. ??Development of mild atelectasis in both lung bases, greater on the right side. No pleural effusion or pneumothorax. 3. ??Peribronchial wall thickening as detailed above. May be due to bronchitis versus reactive airway disease. 4. ??Similar emphysematous changes. Ordered By: BHUMIKA FAIR Interpreted By: Remi Crespo, 02/27/2023 2:53 PM Narrative 02/27/2023 3:12 PM FULL STACK ENGINEER IMAGING STUDIES: ??CT CHEST WO CON ? DATE: ??02/27/2023 12:18 PM COMPARISON STUDIES: ??10/02/2022 CLINICAL HISTORY: ??Diffuse/interstitial lung disease ?? . ??Intermittent right- sided chest pain. Shortness of breath. Hypertension. COPD. . Radiation dose reduction technique was utilized. FINDINGS: 1. ??Development of mild atelectasis within both lung bases. Slightly greater on the right side. No pleural effusion or pneumothorax.. 2. ??Development of acute appearing mildly displaced fracture of the posterior lateral right seventh rib on image 53 of series 3. Multiple other old healed right-sided rib fractures... 3. ??Mild to moderate mucosal thickening of the bilateral bronchial jackson. Greater in the lower lobes. May be due to bronchitis versus reactive airway disease 4. ??Stable mild scar formation in the lingular segment in right middle lobe.. Also development of mild atelectasis within the anterior right upper lobe. Similar emphysematous change with scattered bleb formation and mild scar formation. 5. ??Atherosclerotic aorta without dilatation. No pericardial effusion. ??No pathologic lymphadenopathy or pulmonary nodules. ??Advanced coronary artery calcifications.. Left-sided central line with tip in mid superior vena cava. 6. ??Upper abdomen with normal adrenals. Fatty superior liver. Partially visualized gallbladder with calculi. Atrophic left kidney. Mildly atrophic right kidney with difficult to characterize cystic lesions. Follow-up with outpatient ultrasound. Degenerative change in thoracic spine. Loop recorder overlying the left chest. Procedure Note Nicholas Crespo MD - 02/27/2023 IMAGING STUDIES: CT CHEST WO CON DATE: 02/27/2023 12:18 PM COMPARISON STUDIES: 10/02/2022 CLINICAL HISTORY: Diffuse/interstitial lung disease . Intermittentright-sided chest pain. Shortness of breath. Hypertension. COPD. . Radiation dose reduction technique was utilized. FINDINGS: 1. Development of mild atelectasis within both lung bases. Slightlygreater on the right side. No pleural effusion or pneumothorax.. 2. Development of acute appearing mildly displaced fracture of theposterior lateral right seventh rib on image 53 of series 3. Multipleother old healed right-sided rib fractures... 3. Mild to moderate mucosal thickening of the bilateral bronchial jackson.Greater in the lower lobes. May be due to bronchitis versus reactiveairway disease 4. Stable mild scar formation in the lingular segment in right middlelobe.. Also development of mild atelectasis within the anterior rightupper lobe. Similar emphysematous change with scattered bleb formation andmild scar formation. 5. Atherosclerotic aorta without dilatation. No pericardial effusion. Nopathologic lymphadenopathy or pulmonary nodules. Advanced coronary arterycalcifications.. Left-sided central line with tip in mid superior venacava. 6. Upper abdomen with normal adrenals. Fatty superior liver. Partiallyvisualized gallbladder with calculi. Atrophic left kidney. Mildly atrophicright kidney with difficult to characterize cystic lesions. Follow-up withoutpatient ultrasound. Degenerative change in thoracic spine. Looprecorder overlying the left chest. IMPRESSION: 1. Acute-appearing mildly displaced fracture of the posterior lateralright seventh rib as detailed above. Multiple other old healed right-sidedrib fractures. 2. Development of mild atelectasis in both lung bases, greater on theright side. No pleural effusion or pneumothorax. 3. Peribronchial wall thickening as detailed above. May be due tobronchitis versus reactive airway disease. 4. Similar emphysematous changes. Ordered By: BHUMIKA FAIR Interpreted By: Remi Crespo, 02/27/2023 2:53 PM us Bhumika Fair MD CT Final Res ult * MAGNESIUM (02/27/2023 11:45 AM FULL STACK ENGINEER) MAGNESIUM 2.2 1.8 - 2.4 MG/DL 02/27/2023 12:34 PM FULL STACK ENGINEER [facility] 02/27/2023 11:4 5 AM FULL STACK ENGINEER Bhumika Fair MD LABORATORY Final Res ult [facility] [address] [place] [address], [place] [phone] * (ABNORMAL) PRO-BRAIN NATRIURETIC PEPTIDE (02/27/2023 11:45 AM FULL STACK ENGINEER) PRO-B TYPE NATRIURETIC PEPTIDE 1,272(H) <125 PG/ML 02/27/2023 12:34 PM FULL STACK ENGINEER [facility] Comment: CUT POINTS ESTABLISHED BY INTERNATIONAL [...] OF 89% AND 72% FOR ACUTE CHF. 02/27/2023 11:4 5 AM FULL STACK ENGINEER us Bhumika Fair MD LABORATORY Final Res ult [facility] [address] [place] [address], [place] [phone] * LIPASE (02/27/2023 11:45 AM FULL STACK ENGINEER) LIPASE 61 16 - 77 UNITS/L 02/27/2023 12:34 PM FULL STACK ENGINEER [facility] 02/27/2023 11:4 5 AM FULL STACK ENGINEER us Bhumika Fair MD LABORATORY Final Res ult [facility] [address] [place] [address], [place] [phone] * TROPONIN, QUANT (02/27/2023 11:45 AM FULL STACK ENGINEER) Pathologist [facility] TROPONIN I HIGH SENSITIVITY 7 <51 ng/L 02/27/2023 12:29 PM [facility] Comment: HIGH DOSES OF BIOTIN, TROPONIN-SPECIFIC AUTOANTIBODIES, AND ANTIBODY THERAPY CONTAINING HAMA MAY INTERFERE WITH THIS TEST RESULT. CORRELATION TO CLINICAL HISTORY AND PRESENTATION RECOMMENDED. 02/27/2023 11:4 5 AM FULL STACK ENGINEER us Bhumika Fair MD LABORATORY Final Res ult [facility] [address] [place] [address], * (ABNORMAL) COMPREHENSIVE METABOLIC PANEL (02/27/2023 11:45 AM FULL STACK ENGINEER) [facility] GLUCOSE 101(H) 70 - 99 MG/DL 02/27/2023 12:34 PM [facility] BUN 37(H) 7 - 18 MG/DL 02/27/2023 12:34 PM [facility] CREATININE S/P/B 4.50(H) 0.55 - 1.02 MG/DL 02/27/2023 12:34 PM [facility] SODIUM S/P/B 138 136 - 145 MMOL/L 02/27/2023 12:34 PM [facility] POTASSIUM S/P/B 4.0 3.5 - 5.1 MMOL/L 02/27/2023 12:34 PM [facility] CHLORIDE S/P/B 99(L) 100 - 108 MMOL/L 02/27/2023 12:34 PM [facility] CO2 28.6 21 - 32 MMOL/L 02/27/2023 12:34 PM [facility] CALCIUM S/P/B 9.1 8.5 - 10.1 MG/DL 02/27/2023 12:34 PM [facility] BILIRUBIN TOTAL S/P/B 0.3 0.2 - 1.2 MG/DL 02/27/2023 12:34 PM [facility] TOTAL PROTEIN S/P/B 7.7 6.4 - 8.2 G/DL 02/27/2023 12:34 PM [facility] ALBUMIN S/P/B 3.6 3.4 - 5.0 G/DL 02/27/2023 12:34 PM [facility] AST 17 15 - 37 U/L 02/27/2023 12:34 PM [facility] ALT 19 14 - 55 U/L 02/27/2023 12:34 PM [facility] ALKALINE PHOSPHATASE S/P/B 103 50 - 136 U/L 02/27/2023 12:34 PM [facility] ANION GAP 10.4 5 - 15 MMOL/L 02/27/2023 12:34 PM [facility] BUN CREATININE RATIO 8.2 6 - 26 02/27/2023 12:34 PM [facility] A/G RATIO 0.9(L) 1.0 - 2.0 RATIO 02/27/2023 12:34 PM [facility] GFR ESTIMATE 10(L) >90 ML/MIN/1.7 3 M2 02/27/2023 12:34 PM [facility] Comment: NOTE: eGFR is not calculated for patients <18 years of age. This is an estimated GFR calculation using the new CKD EPI creatinine equation without race and so does not require a correction factor for race. This estimated GFR should not be used for calculating drug doses. 02/27/2023 11:4 5 AM FULL STACK ENGINEER us Bhumika Fair MD LABORATORY Final Res ult [facility] [address] [facility] [place] [address], * (ABNORMAL) CBC W/DIFF AUTOMATED (02/27/2023 11:45 AM FULL STACK ENGINEER) [facility] WBC 9.39 4.4 - 11.0 x10'3/uL 02/27/2023 12:16 PM [facility] RBC 3.80(L) 4.50 - 5.10 x10'6/uL 02/27/2023 12:16 PM [facility] HGB 12.0(L) 12.3 - 15.3 G/DL 02/27/2023 12:16 PM [facility] HCT 37.0 35.9 - 44.6 % 02/27/2023 12:16 PM [facility] MCV 97.4(H) 80.0 - 96.0 FL 02/27/2023 12:16 PM [facility] MCH 31.6(H) 25.3 - 30.9 PG 02/27/2023 12:16 PM [facility] MCHC 32.4 31.0 - 34.1 G/DL 02/27/2023 12:16 PM [facility] RDW 13.8 12.4 - 15.1 % 02/27/2023 12:16 PM [facility] PLT 238 151 - 353 x10'3/uL 02/27/2023 12:16 PM [facility] MPV 10.3 9.6 - 12.0 FL 02/27/2023 12:16 PM [facility] RBC MORPHOLOGY NORMAL 02/27/2023 12:16 PM [facility] PLT MORPH. NORMAL 02/27/2023 12:16 PM [facility] WBC MORPHOLOGY NORMAL 02/27/2023 12:16 PM FULL STACK ENGINEER [facility] LYMPHOCYTES % 15.8 15.8 - 45.0 % 02/27/2023 12:16 PM FULL STACK ENGINEER [facility] NEUTROPHILS % 71.5 42.1 - 71.9 % 02/27/2023 12:16 PM FULL STACK ENGINEER [facility] MONOCYTES % 8.7 5.7 - 12.5 % 02/27/2023 12:16 PM FULL STACK ENGINEER [facility] EOSINOPHILS 3.3 0.0 - 5.6 % 02/27/2023 12:16 PM FULL STACK ENGINEER [facility] BASOPHILS 0.4 0.0 - 1.3 % 02/27/2023 12:16 PM FULL STACK ENGINEER [facility] ABS. NEUTROPHILS 6.71(H) 1.40 - 6.00 x10'3/uL 02/27/2023 12:16 PM FULL STACK ENGINEER [facility] IMMATURE GRANS % 0.3 0.0 - 0.5 % 02/27/2023 12:16 PM FULL STACK ENGINEER [facility] ABS. LYMPHOCYTES 1.48 0.80 - 4.70 x10'3/uL 02/27/2023 12:16 PM FULL STACK ENGINEER [facility] 02/27/2023 11:4 5 AM FULL STACK ENGINEER us Bhumika Fair MD LABORATORY Final Res ult [facility] [address] [place] [address], * ECG 12 lead (02/27/2023 11:37 AM FULL STACK ENGINEER) 02/27/2023 11:3 7 AM FULL STACK ENGINEER Narrative [facility] ([facility]) RAD - 02/28/2023 5:47 PM FULL STACK ENGINEER ?[place] ? Test Date: ?2023-02-27 Pat Name: ? ALAYNA LAWRENCE ?Department: ?? 85 ? Room: ? TRA2 TR2 Gender: ? Female ? Shank Inspector: ?? : ?1950 ? Requested By: BHUMIKA SALEEM Order Number: [id number] ? Reading MD: ?? Sj Scally ? Measurements Intervals ?[place] ? Rate: ? 63 ? P: ?38 AR: ? 163 ?QRS: ?-58 QRSD: ? 97 ? T: ?62 QT: ? 432 ? QTc: ?444 ? Interpretive Statements SINUS RHYTHM LEFT ANTERIOR FASCICULAR BLOCK ??[QRS AXIS <= -45, QR IN I, RS IN II] Compared to ECG 12/19/2022 21:00:37 No significant changes STACK ENGINEER Procedure Note Sj Moscoso MD - 02/28/2023 [facility] Test Date: 2023-02-27 Pat Name: ALAYNA LAWRENCE Department: 85 Room: [place] [address] Gender: Female Shank Inspector: : 1950 Requested By: BHUMIKA FAIR Order Number: [id number] Reading MD: Sj Moscoso Measurements Intervals [place] Rate: 63 P: 38 AR: 163 QRS: -58 QRSD: 97 T: 62 QT: 432 QTc: 444 Interpretive Statements SINUS RHYTHM LEFT ANTERIOR FASCICULAR BLOCK [QRS AXIS <= -45, QR IN I, RS IN II] Compared to ECG 12/19/2022 21:00:37 No significant changes STACK ENGINEER us Bhumika Fair MD ECG ORDERABLES Final Res ult [facility] RAD documented in this encounter Visit Diagnoses Diagnosis Closed rib fracture- Primary Closed fracture of rib(s), unspecified COPD exacerbation (CMS/HCC HHS/HCC) Obstructive chronic bronchitis with exacerbation ESRD (end stage renal disease) on dialysis ([facility]) End stage renal disease documented in this encounter Administered Medications Inactive Administered Medications - up to 3 most recent administrations Medication Order MAR Action Action Date Dose Rate Site azithromycin (ZITHROMAX) 500 mg in sodium chloride 0.9 % 250 mL IVPB 500 mg, Intravenous, at 250 mL/hr, Once, 1 dose, On Sun02/27/23 at 1615 New Bag 02/27/2023 4:28 PM FULL STACK ENGINEER 500 mg 250 mL/hr ipratropium-albuterol (DUONEB) 0.5-2.5 (3) MG/3ML nebulizer solution 3 mL 3 mL, Nebulization, Once, 1 dose, On Sun02/27/23 at 1600 Given 02/27/2023 4:09 PM FULL STACK ENGINEER 3 mLs methylPREDNISolone sodium succinate (SOLU-Medrol) injection 62.5 mg 62.5 mg, Intravenous, Once, 1 dose, On Sun02/27/23 at 1630, If ordered IV, administer into a vein over 3-15 minutes. Doses >= 2 mg/kg or 250mg should be given by infusion, unless the benefits of IV injection outweigh the risks (life-threatening shock) Given 02/27/2023 4:20 PM FULL STACK ENGINEER 62.5 mg morphine injection 2 mg 2 mg, Intravenous, Once, 1 dose, On Sun02/27/23 at 1215 Given During Downtime 02/27/2023 12:27 PM FULL STACK ENGINEER 2 mg documented in this encounter Active and Recently Administered Medications Times are shown in FULL STACK ENGINEER. Scheduled Medication Order 02/25/2023 02/26/2023 02/27/2023 azithromycin (ZITHROMAX) 500 mg in sodium chloride 0.9 % 250 mL IVPB (COMPLETED) 500 mg, Intravenous, at 250 mL/hr, Once, 1 dose, On Sun02/27/23 at 1615 1628 (New Bag - Prov ider: Violet Vanegas RN)1745 (Infusion Stop Time - Provider: Violet Vanegas RN) ipratropium-albuterol (DUONEB) 0.5-2.5 (3) MG/3ML nebulizer solution 3 mL (COMPLETED) 3 mL, Nebulization, Once, 1 dose, On Sun02/27/23 at 1600 1609 (Given - Provid er: Nilsa Peterson, EXTRACORPOREAL CIRCULATION SPECIALIST) methylPREDNISolone sodium succinate (SOLU-Medrol) injection 125 mg 125 mg, Intravenous, Once, 1 dose, On Sun02/27/23 at 1600, If ordered IV, administer into a vein over 3-15 minutes. Doses >= 2 mg/kg or 250mg should be given by infusion, unless the benefits of IV injection outweigh the risks (life-threatening shock) 1618 (Not Given - Pr ovider: Violet Vanegas RN - Reason: Provider Order - Comment: epic flagged dose too high for COPD. Dose held. MD Fair notified, see orders.)1619 (Not Given - Provider: Violet Vanegas RN - Reason: Provider Order) methylPREDNISolone sodium succinate (SOLU-Medrol) injection 62.5 mg (COMPLETED) 62.5 mg, Intravenous, Once, 1 dose, On Sun02/27/23 at 1630, If ordered IV, administer into a vein over 3-15 minutes. Doses >= 2 mg/kg or 250mg should be given by infusion, unless the benefits of IV injection outweigh the risks (life-threatening shock) 1620 (Given - Provid er: Violet Vanegas RN) morphine injection 2 mg (COMPLETED) 2 mg, Intravenous, Once, 1 dose, On Sun02/27/23 at 1215 1227 (Given During D owntime - Provider: Violet Vanegas RN - Comment: Pain intermittent, patient requested to take medication at this time.) documented in this encounter Additional Health Concerns Infection Onset Date Last Indicated Resolved Time COVID-19 Rule Out 02/27/2023 02/27/2023 02/27/2023 8:57 PM FULL STACK ENGINEER documented as of this encounter Care Teams Product Merchandiser Relationship Specialty Start Date End Date Jasson Cueva MD [address] [place] [phone] PCP - General FAMILY PRACTICE 11/03/18 Huber Milligan MD [address] [place] [phone] Consulting Physician Vascular Neurology 04/30/19 Norm Hopkins MD [address] [place] [address] Consulting Physician CLINICAL CARDIAC ELECTROPHYSIOLOGY 04/30/19 documented as of this encounter
--- OUTSIDE RECORDS SUMMARY | 2024-03-19 18:38 | XMS_ITS | Encounter Summary ---
Author Organization [facility] Address [address] [place] [address]. [place], [place] [address] [place] [id number] Care Team Providers Care Waterproof Bag Sewer Name Role Phone Jasson Cueva MD Primary Care Provider [phone] Huber Milligan MD Unavailable [phone] Norm Hopkins MD Unavailable [phone] Encounter Details Date Type Department Care Team (Latest Contact Info) Description 12/26/2021 12:14 PM CDT - 12/26/2021 11:59 PM CDT Hospital Encounter [facility] [address] [place] [address] [place] [address] Jasson Cueva MD [address] [place] [phone] Discharge Disposition: Home or Self Care (Routine Discharge) Social History Tobacco Use Types Packs/Day Years Used Date Smoking Tobacco: Former Cigarettes Smokeless Tobacco: Never Alcohol Use Standard Drinks/Week Comments Not Currently 0 (1 standard drink = 0.6 oz pur e alcohol) Comments No Sex and Gender Information Value Date Recorded Sex Assigned at Not on file Legal 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 SENIOR MEDICAL TECHNOLOGIST Gender Identity Not on file Sexual Orientation [...] gabapentin (NEURONTIN) 600 MG tabletIndications :Neuropathic pain TAKE ONE TABLET BY MOUTH IN THE MORNING 1 IN EVENING AND 1 BEFORE BEDTIME 90 tablet 3 12/19/2021 01/30/2022 metoprolol succinate ER 50 MG 24 hr tablet Take 1 tablet (50 mg total) by mouth daily. 2 11/08/2018 01/06/2023 sulfamethoxazole- trimethoprim (BACTRIM DS) 800-160 MG tablet Take 1 tablet by mouth 2 (two) times daily for 5 days. 10 tablet 12/22/2021 12/27/2021 documented as of this encounter Plan of [...] Associated Diagnosis Comments BASIC METABOLIC PANEL Routine 12/26/2021 11:30 AM CDT MOIRA (acute kidney injury) COPD (chronic obstructive pulmonary disease) ([facility]) CKD (chronic kidney disease) CHF (congestive heart failure) ([facility]) documented in this encounter Results * (ABNORMAL) BASIC METABOLIC PANEL (12/26/2021 11:30 AM CDT) SODIUM S/P/B 144 136 - 145 MMOL/L 12/26/2021 12:43 PM CDT [facility] POTASSIUM S/P/B 4.2 3.5 - 5.1 MMOL/L 12/26/2021 12:43 PM T [facility] CHLORIDE S/P/B 107 98 - 107 MMOL/L 12/26/2021 12:43 PM CDT [facility] CO2 26.1 21.0 - 32.0 MMOL/L 12/26/2021 12:43 PM T [facility] GLUCOSE 65(L) 70 - 99 MG/DL 12/26/2021 12:43 PM T [facility] Comment: FASTING GLUCOSE 100 TO 125 MG/DL IS CONSISTENT WITH IMPAIRED FASTING GLUCOSE. FASTING GLUCOSE >125 MG/DL IS CONSISTENT WITH DIABETES. RANDOM GLUCOSE >200 MG/DL WITH HYPERGLYCEMIC SYMPTOMS IS CONSISTENT WITH DIABETES. PER ADA GUIDELINES BUN 31(H) 6 - 24 MG/DL 12/26/2021 12:43 PM CDT [facility] CREATININE S/P/B 2.75(H) 0.55 - 1.02 MG/DL 12/26/2021 12:43 PM CDT [facility] CALCIUM S/P/B 8.9 8.4 - 10.5 MG/DL 12/26/2021 12:43 PM CDT [facility] ANION GAP 10.9 5.0 - 15.0 MMOL/L 12/26/2021 12:43 PM CDT [facility] OSMOLALITY (CALC) 303 MOSM/KG 022 12:43 PM CDT [facility] Comment:REFERENCE RANGE NOT ESTABLISHED GFR ESTIMATE 18(L) >89 ML/MIN/1. 73 M2 12/26/2021 12:43 PM CDT [facility] GFR NOTES GFR REFERENCE S: 12/26/2021 12:43 PM CDT [facility] Comment: THE ESTIMATED GFR [...] Jasson Cueva MD LABORATORY Final Resul t [facility] [address] [place] [address], documented in this encounter Visit Diagnoses Diagnosis MOIRA (acute kidney injury) ([facility]) Acute kidney failure, unspecified COPD (chronic obstructive pulmonary disease) ([facility]) Chronic airway obstruction, not elsewhere classified CKD (chronic kidney disease) Chronic kidney disease, unspecified CHF (congestive heart failure) ([facility]) Congestive heart failure, unspecified documented in this encounter Care Teams Waterproof Bag Sewer Relationship Specialty Start Date End Date Jasson Cueva MD [address] [place] [phone] PCP - General FAMILY PRACTICE 11/03/18 Huber Milligan MD [address] [place] [phone] Consulting Physician Vascular Neurology 04/30/19 Norm Hopkins MD [address] [place] [phone] Consulting Physician CLINICAL CARDIAC ELECTROPHYSIOLOGY 04/30/19 documented as of this encounter
--- OUTSIDE RECORDS SUMMARY | 2024-03-19 18:38 | XMS_ITS | Encounter Summary ---
Author Organization [facility] Address [address] [place] [address]. [place], [place] [id number] [place] [address] Care Team Providers Care Calender Machine Operator Name Role Phone Jasson Valdivia MD Primary Care Provider [phone] Huber Milligan MD Unavailable [phone] Norm Hopkins MD Unavailable [phone] Reason for Referral * Imaging (Routine) - Closed Specialty Diagnoses / Procedures Referred By Contac t Referred To Contact RADIOLOGY Diagnoses History of nicotine dependence Procedures CT LUNG SCREENING Jasson Valdivia MD [address] [place] [phone] Phone: tel: fax: Referral ID Status Reason Start Date Expiration Date Visits Re quested Visits Authorized [id number] Closed 09/05/2022 09/06/2023 1 1 * Imaging (Routine) - Closed Specialty Diagnoses / Procedures Referred By Contac t Referred To Contact RADIOLOGY Diagnoses Abnormal mammogram of both breasts Procedures US BREAST FRANC BIRAD LTD US BREAST FRANC BIRAD COMP Jasson Valdivia MD [address] [place] [phone] Phone: tel: fax: Referral ID Status Reason Start Date Expiration Date Visits Re quested Visits Authorized [id number] Closed 09/05/2022 10/07/2023 1 1 Encounter Details Date Type Department Care Team (Latest Contact Info) Description 10/02/2022 9:25 AM CDT - 10/02/2022 11:59 PM CDT Hospital Encounter 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 1. ??LUNG-RADS category 1: Negative, no evidence of primary lung cancer. 2. LUNG-RADS category S: Negative, no new/unknown potentially significant incidental findings requiring urgent additional evaluation. 3. Other incidental findings as above. RECOMMENDATIONS: Continued routine annual LDCT lung screening. Suggest next exam on or around 10/04/2023 Thank you for choosing the [facility] Lung Screening Program. Ordered By: JASSON VALDIVIA Interpreted By: Obdulia Echevarria MD, 10/06/2022 4:48 PM Narrative 10/06/2022 4:56 PM CDT EXAM: LUNG SCREENING LOW-DOSE CT THORAX WITHOUT CONTRAST DATE: 10/02/2022 HISTORY: Asymptomatic patient with history of smoking meeting [facility] high-risk criteria for lung screening. * ??72 years * ??20 pack years or greater * ??Current smoker or have quit smoking within the last 15 years COMPARISON: Lung cancer screening CT 01/24/2021, MRI abdomen without contrast 04/05/2020 TECHNIQUE: Noncontrast, helical, low-dose CT (LDCT) chest per standard departmental protocol. A dose lowering technique was used for this procedure, which may include, but is not limited to, dose reduction technique, automated exposure control, the use of iterative reconstruction, and ALARA (As Low As Reasonably Achievable) / Image Gently techniques. FINDINGS: Lung Screening Specific (LUNG-RADS): ??Negative. Potentially Significant Incidentals (LUNG-RADS category S): None. Pulmonary Incidentals: Multifocal areas of scarring and atelectasis. Mild bronchial wall thickening. Pulmonary emphysema. Other Incidentals: Right shoulder arthroplasty. Atherosclerotic calcification of the thoracic aorta. Mitral annular calcification. Coronary artery calcifications. Left chest wall loop recorder. Left renal atrophy. Nonobstructing partially included left renal calculi. Atherosclerotic calcification of the upper abdominal aorta. Cholelithiasis. Suboptimal evaluation of the right kidney however there are probable cysts. There appears to be asymmetric hypertrophy of the right kidney and cortical distortion, similar to the prior MRI. Multilevel spondylosis and thoracic kyphosis. Old rib fractures. Procedure Note Obdulia Echevarria MD - 10/06/2022 EXAM: LUNG SCREENING LOW-DOSE CT THORAX WITHOUT CONTRAST DATE: 10/02/2022 HISTORY: Asymptomatic patient with history of smoking meeting [facility]-risk criteria for lung screening. * 72 years * 20 pack years or greater * Current smoker or have quit smoking within the last 15 years COMPARISON: Lung cancer screening CT 01/24/2021, MRI abdomen withoutcontrast 04/05/2020 TECHNIQUE: Noncontrast, helical, low-dose CT (LDCT) chest per standarddepartmental protocol. A dose lowering technique was used for thisprocedure, which may include, but is not limited to, dose reductiontechnique, automated exposure control, the use of iterativereconstruction, and ALARA (As Low As Reasonably Achievable) / Image Gentlytechniques. FINDINGS: Lung Screening Specific (LUNG-RADS): Negative. Potentially Significant Incidentals (LUNG-RADS category S): None. Pulmonary Incidentals: Multifocal areas of scarring and atelectasis. Mildbronchial wall thickening. Pulmonary emphysema. Other Incidentals: Right shoulder arthroplasty. Atheroscleroticcalcification of the thoracic aorta. Mitral annular calcification.Coronary artery calcifications. Left chest wall loop recorder. Left renalatrophy. Nonobstructing partially included left renal calculi.Atherosclerotic calcification of the upper abdominal aorta.Cholelithiasis. Suboptimal evaluation of the right kidney however thereare probable cysts. There appears to be asymmetric hypertrophy of theright kidney and cortical distortion, similar to the prior MRI. Multilevelspondylosis and thoracic kyphosis. Old rib fractures. IMPRESSION: 1. LUNG-RADS category 1: Negative, no evidence of primary lung cancer. 2. LUNG-RADS category S: Negative, no new/unknown potentially significantincidental findings requiring urgent additional evaluation. 3. Other incidental findings as above. RECOMMENDATIONS: Continued routine annual LDCT lung screening. Suggestnext exam on or around 10/04/2023 Thank you for choosing the [facility]ening[facility]. Ordered By: JASSON VALDIVIA Interpreted By: Obdulia Echevarria MD, 10/06/2022 4:48 PM us Jasson Valdivia MD CT Final Resul t * US BREAST [employer] (10/02/2022 10:33 AM CDT) Anatomical Region Laterality Modality Breast Bilateral Ultrasound, Radi ographic Imaging 10/02/2022 10:3 9 AM CDT Narrative 10/02/2022 10:47 AM CDT Examination: Bilateral digital diagnostic mammogram with CAD. [id number] Clinical history: Recommended surveillance of cysts. Comparison: [...] with the mammographic finding in this distribution. Hominy appearing tissue architecture is otherwise demonstrated bilaterally. [...] 10/02/2022 10:39 AM us Jasson Valdivia MD ULTRASOUND Final Resul t * MG DIAG W XAVIER BILAT DIGI (10/02/2022 10:19 AM CDT) Anatomical Region Laterality Modality Breast Bilateral Mammography, Rad iographic Imaging 10/02/2022 10:3 9 AM CDT Narrative 10/02/2022 10:47 AM CDT Examination: Bilateral digital diagnostic mammogram with CAD. [id number] Clinical history: Recommended surveillance of cysts. Comparison: [...] with the mammographic finding in this distribution. Hominy appearing tissue architecture is otherwise demonstrated bilaterally. [...] By: Jacky Saul MD, 10/02/2022 10:39 AM Jasson Valdivia MD MAMMO Final Resul t documented in this encounter Visit Diagnoses Diagnosis Abnormal mammogram of both breasts History of nicotine dependence Personal history of tobacco use, presenting hazards to health documented in this encounter Care Teams Calender Machine Operator Relationship Specialty Start Date End Date Jasson Valdivia MD [address] [place] [phone] PCP - General FAMILY PRACTICE 11/03/18 Huber Milligan MD [address] [place] [phone] Consulting Physician Vascular Neurology 04/30/19 Norm Hopkins MD [address] [place] [address] Consulting Physician CLINICAL CARDIAC ELECTROPHYSIOLOGY 04/30/19 documented as of this encounter
--- OUTSIDE RECORDS SUMMARY | 2024-03-19 18:38 | XMS_ITS | Encounter Summary ---
Author Organization [facility] Address [address] [place] [address]. [place], [place] [address] [place] [id number] Care Team Providers Care Commercial Appraiser Name Role Phone Jasson Cueva MD Primary Care Provider [phone] Huber Milligan MD Unavailable [phone] Norm Hopkins MD Unavailable [phone] Encounter Details Date Type Department Care Team (Latest Contact Info) Description 01/08/2023 Travel Social History Tobacco Use Types Packs/Day [...] often do you attend chur ch or christianity services? Never 12/20/2022 Do you belong to any clubs o r organizations such as holiness groups, unions, fraternal or athletic groups, or [...] and heating? Not hard at all 12/20/2022 [facility] [place] of Occupat ional Health - Occupational Stress [...] place to sleep or slept in a fpc (including now)? 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 Yes 01/08/2023 8:00 PM Sara Pena RN Acti ve * Question Answer Date of Assessment Author Status Do you have difficulty dressing or bathing? No 01/08/2023 8:00 PM Sara Pena RN Active Because of a physical, mental, or emotional condition, do you have difficulty doing errands alone such as visiting a doctor's office or shopping? No 01/08/2023 8:00 PM Carter Pena i, RN Active * Are you deaf [...] or making decisions? No 01/08/2023 8:00 PM Sara Pena RN Active * Because of a physical, mental, or emotional condition, do you have serious difficulty concentrating, remembering, or making decisions? Answer Entry Date Author Status No 12/20/2022 2:20 AM Kapil Anthony RN Active documented in this encounter Plan of [...] on filedocumented in this encounter Care Teams Commercial Appraiser Relationship Specialty Start Date End Date Jasson Cueva MD [address] [place] [phone] PCP - General FAMILY PRACTICE 11/03/18 Huber Milligan MD [address] [place] [phone] Consulting Physician Vascular Neurology 04/30/19 Norm Hopkins MD [address] [place] [address] Consulting Physician CLINICAL CARDIAC ELECTROPHYSIOLOGY 04/30/19 documented as of this encounter
--- OUTSIDE RECORDS SUMMARY | 2024-03-19 18:38 | XMS_ITS | Encounter Summary ---
Author Organization [facility] Address [address] [place] [address]. [place] [address] [place] [address] Care Team Providers Care Assistant Librarian Name Role Phone Jasson Cueva MD Primary Care Provider [phone] Huber Milligan MD Unavailable [phone] Norm Hopkins MD Unavailable [phone] Reason for Visit * Reason Onset Date Comments Refill Request 01/30/2022 Encounter Details Date Type Department Care Team (Late st Contact Info) Description 01/30/2022 Telephone [facility] [place] [facility] [place] [address] [place] [address] Huber Milligan MD [address] [place] [address] Refill Request Social History Tobacco Use Types Packs/Day Years Used Date Smoking Tobacco: Former Cigarettes Smokeless Tobacco: Never Alcohol Use Standard Drinks/Week Comments Not Currently 0 (1 standard drink = 0.6 oz pur e alcohol) Comments No Sex and Gender Information Value Date Recorded Sex Assigned at Not on file Legal 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 MEDICARE SALES REPRESENTATIVE Gender Identity Not on file Sexual Orientation [...] documented in this encounter Progress Notes * Kika Velasco - 02/06/2022 11:54 AM CST Unable to contact patient, Left VM. CARE SALES REPRESENTATIVE * Minnie May RN - 01/30/2022 10:42 AM CST Pharmacy updated to [facility] in [place]. PDMP reviewed; new script for Gabapentin 600mg TID sent to pharmacy. Please schedule patient for a follow up in [place] in February to continue medication refills. CARE SALES REPRESENTATIVE * Danielle Mayer - 01/30/2022 10:16 AM CST Zack called stating that the [facility] had closed and would like for it to be removed from his mom Luz's list along with the one from [facility]. He states she will getting hre medication in [facility] [place] at [facility] pharmacy. Please correct and send refill for her Gabapentin. CARE SALES REPRESENTATIVE documented in this encounter Plan of Treatment [...] documented as of this encounter Visit Diagnoses Diagnosis Neuropathic pain Neuralgia, neuritis, and radiculitis, unspecified documented in this encounter Care Teams Assistant Librarian Relationship Specialty Start Date End Date Jasson Cueva MD [address] [place] [phone] PCP - General FAMILY PRACTICE 11/03/18 Huber Milligan MD [address] [place] [phone] Consulting Physician Vascular Neurology 04/30/19 Norm Hopkins MD [address] [place] [phone] Consulting Physician CLINICAL CARDIAC ELECTROPHYSIOLOGY 04/30/19 documented as of this encounter
--- OUTSIDE RECORDS SUMMARY | 2024-03-19 18:38 | XMS_ITS | Encounter Summary ---
Author Organization [facility] Address [address] [place] [address]. [place], [place] [id number] [place] [address] Care Team Providers Care Computer Programmer Chief Name Role Phone Jasson Cueva MD Primary Care Provider [phone] Huber Milligan MD Unavailable [phone] Norm Hopkins MD Unavailable [phone] Reason for Visit * Reason Comments Detention New admit Encounter Details Date Type Department Care Team (Late st Contact Info) Description 01/09/2023 1:00 PM CDT Detention [facility] Family & Internal Medicine [address] [phone] [place] [id number] [place] [phone] Detention ( New admit) Social History Tobacco Use Types Packs/Day Years Used Date Smoking Tobacco: Former Cigarettes Smokeless Tobacco: Never Tobacco Cessation:Counseling Given: No Alcohol Use Standard Drinks/Week Comments Not Currently [...] often do you attend chur ch or oriental orthodox services? 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 Gender Identity Not on file Sexual Orientation Not on file documented as of this encounter Last Filed Vital Signs Vital Sign Reading Time Taken Comments Blood Pressure 116/83 01/09/2023 9:15 AM CDT Pulse 60 01/09/2023 9:15 AM CDT Temperature 37 ??C (98.6 ??F) 01/09/2023 9:15 AM CDT Respiratory Rate 18 01/09/2023 9:15 AM CDT Oxygen Saturation 94% 01/09/2023 9:15 AM CDT Inhaled Oxygen Concentration - - Weight 77.1 kg (170 lb) 01/09/2023 9:15 AM CDT Height 170.2 cm (5' 7 ) 01/09/2023 9:15 AM CDT Body Mass Index 26.63 01/09/2023 9:15 AM CDT documented in this encounter Functional [...] R N Active documented in this encounter Patient Instructions * Patient Instructions* Angle Doty MD - 01/09/2023 1:00 PM CDT I have examined the patient and reviewed her record and will admit her to the floor. She will follow up with nephrology and continue HD as scheduled. Will follow her renal,electrolytes,lipids and daily weights. documented in this encounter Progress Notes * Angle Doty MD - 01/09/2023 1:00 PM CDT Images from the original note were not included. Office Progress Note Reason for Visit: Detention ( New admit) History of Present Illness: HPI Pt with a history hypertension,hyperlipidemia, chronic CHF,COPD, CVA, developed acute on chronic renal failure requiring HD and was in the hospital multiple times with ineffective port when I went tosee her, I finally was able to evaluate her on 01/16/23. She is being admitted to [facility] due to inability to care for herself and today states left upper chest port may be ineffective as well, denies pain, headaches, fever, cough,chest pain,palpitations, sob is on 2 liters of oxygen and no bowel or bladder issues ROS: Review of Systems Constitutional: Negative for fever and malaise/fatigue. HENT: Negative for hearing loss and tinnitus. Eyes: Negative for blurred vision and double vision. Respiratory: Negative for cough and shortness of breath. Cardiovascular: Negative for chest pain, palpitations, claudication and leg swelling. Gastrointestinal: Negative for abdominal pain, blood in stool and melena. Musculoskeletal: Positive for joint pain. Negative for falls and myalgias. Skin: Negative for rash. Neurological: Negative for dizziness, speech change, seizures and headaches. Endo/Heme/Allergies: Does not bruise/bleed easily. Psychiatric/Behavioral: Negative for depression and memory loss. The patient does not have insomnia. Medications: Current Outpatient Medications: amLODIPine 5 MG tablet, 1 tablet (5 mg total) daily., Disp: , Rfl: aspirin EC 81 MG tablet, Take 1 tablet (81 mg total) by mouth daily., Disp: , Rfl: furosemide (LASIX) 20 MG tablet, Take 1 tablet (20 mg total) by mouth every other day for 30 days.,Disp: 15 tablet, Rfl: 0 gabapentin (NEURONTIN) 100 MG capsule, Take 1 capsule (100 mg total) by mouth 3 (three) times dailyfor 60 days., Disp: 90 capsule, Rfl: 1 HYDROcodone-acetaminophen (NORCO) 5-325 MG tablet, Take 1 tablet by mouth every 6 (six) hours as needed. Indications: Acute Pain < 7 Day Supply (Patient taking differently: Take 1 tablet by mouth every 6 (six) hours as needed for Pain. Indications: Acute Pain < 7 Day Supply), Disp: 10 tablet,Rfl: 0 metoprolol succinate ER (TOPROL-XL) 25 MG 24 hr tablet, Take 1 tablet (25 mg total) by mouth daily for 30 days., Disp: 30 tablet, Rfl: 0 vitamin D3, cholecalciferol, 5000 UNITS capsule, Take 1 capsule (125 mcg total) by mouth daily., Disp: , Rfl: B abtxlgk-G-qowwc acid 0.8 mg (DIALYVITE/NEPHRO-TAN) Tab tablet, Take 1 tablet by mouth daily for 30 days., Disp: 30 tablet, Rfl: 0 calcium carbonate (TUMS) 500 MG chewable tablet, Chew 1 tablet (500 mg total) by mouth 3 (three) times daily before meals for 30 days., Disp: 90 tablet, Rfl: 0 Allergies: Review of patient's allergies indicates: No Known Allergies Medical History: Past Medical History: Diagnosis Date CKD (chronic kidney disease) stage 3, GFR 30-59 ml/min ([facility]) COPD (chronic obstructive pulmonary disease) ([facility]/HCC) ([facility]) Depression Displaced fracture of proximal end of right humerus 11/06/2018 HLD (hyperlipidemia) Hypertension Ischemic stroke ([facility]) ([facility]) Neuropathy UTI (urinary tract infection) Surgical History: Past Surgical History: Procedure Laterality Date DIALYSIS ACCESS SYSTEM Right JOINT REPLACEMENT SHOULDER SURGERY TOTAL HIP ARTHROPLASTY bilateral Social History: Social History Tobacco Use Smoking status: Former Packs/day: 1.00 Types: Cigarettes Smokeless tobacco: Never Vaping Use Vaping Use: Never used Substance Use Topics Alcohol use: Not Currently Drug use: Yes Types: Marijuana Family History: Family History Problem Relation Name Age of Onset Heart Attack Mother PE: Physical Exam Vitals and nursing note reviewed. Constitutional: General: She is not in acute distress. HENT: Head: Normocephalic and atraumatic. Nose: Nose normal. No rhinorrhea. Eyes: General: No scleral icterus. Conjunctiva/sclera: Conjunctivae normal. Pupils: Pupils are equal, round, and reactive to light. Neck: Vascular: No carotid bruit. Cardiovascular: Rate and Rhythm: Normal rate. Pulses: Normal pulses. Comments: Left upper chest port Pulmonary: Effort: Pulmonary effort is normal. Breath sounds: No rales. Abdominal: General: Abdomen is flat. Bowel sounds are normal. There is no distension. Musculoskeletal: Cervical back: Normal range of motion. Comments: Core and lower ext weakness Lymphadenopathy: Cervical: No cervical adenopathy. Skin: General: Skin is warm. Coloration: Skin is not jaundiced or pale. Neurological: General: No focal deficit present. Mental Status: She is alert and oriented to person, place, and time. Motor: Weakness present. Psychiatric: Mood and Affect: Mood normal. Behavior: Behavior normal. Filed Vitals: 01/09/23 0915 BP: 116/83 Pulse: 60 Resp: 18 Temp: 98.6 ??F (37 ??C) SpO2: 94% Weight: 77.1 kg (170 lb) Height: 1.702 m (5' 7 ) Body mass index is 26.63 kg/m??. Diagnoses/Impression: 1. Acute renal failure superimposed on chronic kidney disease, unspecified acute renal failure type, unspecified CKD stage ([facility]) 2. ESRD (end stage renal disease) ([facility]/HCC) ([facility]) 3. Ischemic stroke ([facility]/HCC) ([facility]) 4. Acute on chronic congestive heart failure, unspecified heart failure type ([facility]/HCC) ([facility]) 5. Primary hypertension 6. Hyperlipidemia, unspecified hyperlipidemia type Recommendations and Plan: Patient Instructions I have examined the patient and reviewed her record and will admit her to the floor. She will follow up with nephrology and continue HD as scheduled. Will follow her renal,electrolytes,lipids and daily weights. PCP: ANGLE DOTY MD 01/17/2023 documented in this encounter Plan of Treatment [...] as of this encounter Visit Diagnoses Diagnosis Acute renal failure superimposed on chronic kidney disease, unspecified acute renal failure type, unspecified CKD stage ([facility])- Primary ESRD (end stage renal disease) ([facility]) End stage renal disease Ischemic stroke ([facility]) Acute on chronic congestive heart failure, unspecified heart failure type ([facility]) Primary hypertension Unspecified essential hypertension Hyperlipidemia, unspecified hyperlipidemia type documented in this encounter Administered Medications Administered Medications Medication Order MAR Action Action Date Dose Rate Site Tuberculin Given 11/05/2020 Tuberculin Given 10/22/2020 documented in this encounter Care Teams Computer Programmer Chief Relationship Specialty Start Date End Date Jasson Cueva MD [address] [place] [phone] PCP - General FAMILY PRACTICE 11/03/18 Huber Milligan MD [address] [place] [address] Consulting Physician Vascular Neurology 04/30/19 Norm Hopkins MD [address] [place] [address] Consulting Physician CLINICAL CARDIAC ELECTROPHYSIOLOGY 04/30/19 documented as of this encounter
--- OUTSIDE RECORDS SUMMARY | 2024-03-19 18:39 | XMS_ITS | Encounter Summary ---
Author Organization [facility] Address [address] [place] [address]. [place], [place] [id number] [place] [id number] Care Team Providers Care Scuba Instructor Name Role Phone Jasson Valdivia MD Primary Care Provider Huber Milligan MD Unavailable [phone] Norm Hopkins MD Unavailable [phone] Reason for Referral * (Routine) - Canceled Specialty Diagnoses / Procedures Referred By Contac t Referred To Contact Procedures OT Eval and Treat Kelsey Whitney APNP Referral ID Status Reason Start Date Expiration Date V isits Requested Visits Authorized [id number] Canceled 10/20/2020 11/20/2021 1 1 * (Routine) - Canceled Specialty Diagnoses / Procedures Referred By Contac t Referred To Contact Procedures PT Eval and Treat Kelsey Whitney APNP Referral ID Status Reason Start Date Expiration Date V isits Requested Visits Authorized [id number] Canceled 10/20/2020 11/20/2021 1 1 * Imaging (Emergency) - Closed Specialty Diagnoses / Procedures Referred By Contac t Referred To Contact RADIOLOGY Procedures CT HEAD Paolo Davalos DO Phone: tel: fax: Referral ID Status Reason Start Date Expiration Date Visits Re quested Visits Authorized [id number] Closed 10/17/2020 11/17/2021 1 1 Reason for Visit * Reason Comments Neurologic Problem * Auth/Cert Specialty Diagnoses / Procedures Referred By Contac t Referred To Contact Diagnoses Altered mental status Infestation by bed bug Cerebrovascular disease Urinary tract infection Urinary tract infection Referral ID Status Reason Start Date Expiration Date Visits Re quested Visits Authorized [id number] 1 1 Encounter Details Date Type Department Care Team (Late st Contact Info) Description 10/17/2020 11:06 PM CDT - 10/21/2020 1:40 PM CDT Hospital Encounter [facility] [address] [place] [address] Paolo Crum DO 1 [place] [address] Denise Wolfe MD [address] [facility] [place] [address] Jasson Valdivia MD [address] [place] [id number] Neurologic Problem Discharge Disposition: Intermediate Care Facility Social History Tobacco Use Types Packs/Day Years Used Date Smoking Tobacco: Former Cigarettes Smokeless Tobacco: Never Alcohol Use Standard Drinks/Week Comments Not Currently 0 (1 standard drink = 0.6 oz pur e alcohol) Comments No Sex and Gender Information Value Date Recorded Sex Assigned at Not on file 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 No / Unsure 10/19/2020 12:14 AM CDT documented as of this encounter Last Filed Vital Signs Vital Sign Reading Time Taken Comments Blood Pressure 152/97 10/21/2020 9:00 AM CDT Pulse 72 10/21/2020 9:00 AM CDT Temperature 36.8 ??C (98.3 ??F) 10/21/2020 9:00 AM CD T Respiratory Rate 20 10/21/2020 9:00 AM CDT Oxygen Saturation 98% 10/21/2020 9:00 AM CDT Inhaled Oxygen Concentration - - Weight 72 kg (158 lb 12.8 oz) 10/18/2020 4:07 AM CDT Height 170.2 cm (5' 7 ) 10/17/2020 11:26 PM CDT Body Mass Index 24.87 10/17/2020 11:26 PM CDT documented in this encounter Functional Status * Question Answer Date of Assessment Author Status Do you have serious difficulty walking or climbing stairs? Yes 10/19/2020 12:14 AM CDT Rosemary Nagel RN Active * Question Answer Date of Assessment Author Status Do you have difficulty dressing or bathing? No 10/19/2020 12:14 AM JULYT Rosemary Nagel RN Active Because of a physical, mental, or emotional condition, do you have difficulty doing errands alone such as visiting a doctor's office or shopping? Yes 10/19/2020 12:14 AM JULYT Rosemary Nagel RN Active * RETIRED Are you deaf or do you have serious difficulty hearing Answer Date of Assessment Author Status No 10/19/2020 12:14 AM CDT Acti ve * RETIRED Are you blind or do you have serious difficulty seeing, even when wearing glasses? Answer Date of Assessment Author Status No 10/19/2020 12:14 AM CDT Acti ve * Do you have serious difficulty walking or climbing stairs? Answer Date of Assessment Author Status Yes 10/19/2020 12:14 AM CDT Rosemary Nagel RN Active * Do you have difficulty dressing or bathing? Answer Date of Assessment Author Status No 10/19/2020 12:14 AM JULYT Rosemary Nagel RN Active * Because of a physical, mental, or emotional condition, do you have difficulty doing errands alone such as visiting a doctor's office or shopping? Answer Date of Assessment Author Status Yes 10/19/2020 12:14 AM Rosemary Cano RN Active documented as of this encounter Mental Status * Question Answer Entry Date Author Status Because of a physical, mental, or emotional condition, do you have serious difficulty concentrating, remembering, or making decisions? Yes 10/19/2020 12:14 AM Rosemary Cano RN Active * Because of a physical, mental, or emotional condition, do you have serious difficulty concentrating, remembering, or making decisions? Answer Entry Date Author Status Yes 10/19/2020 12:14 AM Rosemary Cano RN Active documented in this encounter Discharge Summaries * REYMUNDO Solares - 10/21/2020 12:24 PM CDTSummary: UTI Hospital Discharge Summary Alayna Lawrence female 1950 Admit Date: 10/17/2020 11:06 PM Discharge date: 10/21/20 Admitting Physician: Denise Wolfe MD Primary Care Physician: JASSON VALDIVIA MD Discharge Physician: JASSON VALDIVIA MD / REYMUNDO SOLARES Admission Diagnosis: Altered mental status [R41.82] Infestation by bed bug [B88.8] Cerebrovascular disease [I67.9] Urinary tract infection [N39.0] Discharge Diagnosis: Principal Problem: Urinary tract infection Resolved Problems: * No resolved hospital problems. * Admission Condition: Poor Discharged Condition: Good Code Status: Full Code Hospital Course: Abhijit Lawrence is a 70 year old female admitted through ER with altered mental status. Patient is unable to give history of any type. Cannot independently verbalize her name without problems. Carries on conversations without difficulty as long as specific information is not requi red. Denies any pain. Does not know where she is currently. Does not know her age or where she resides. Past medical history as found on problem list includes right shoulder joint replacement, ischemic stroke, implantable loop recorder. Urinary tract infection with an elevated white count was notedin the emergency department and patient was subsequently admitted inpatient for a UTI. Was placed on IV Rocephin for treatment. During this admission patient cognition improved and confusion resolvedtotally. She tolerated IVF resuscitation and IV antibiotics. She remain medically stable and is appropriate for discharge to fci today. Plan of care discussed with pt, she verbalized understanding and agrees. Altered mental status with chronic cerebrovascular disease- Resolved -Supportive care -Awaiting fci placement at [facility] ?? Urinary tract infection- improving -Urine culture with gram-negative rods -Rocephin -WBC 11-->8.7 ?? Chronic kidney disease stage III - On admission Serum creatinine 2.55 GFR 19 at time of D/C serum Cre 2.18 -Continue to monitor CMP -Continue to encourage oral intake Consults: none Imaging Studies: XR CHEST PORTABLE Narrative: Examination: Chest radiograph Exam time: 10/18/2020 12:30 AM Clinical history: Cough Comparison: 03/04/2020 Technique: One view of the chest obtained. Findings: Loop recorder projects over the left lower chest. Lungs are adequately inflated and clear. No pneumothorax or pleural effusions evident. The cardiac silhouette, mediastinal contours, and pulmonary vessels appear within normal limits. No acute osseous abnormality. Partially visualized right shoulder reverse arthroplasty hardware. Impression: IMPRESSION: No radiographic evidence of active disease of the chest. Referred By: PAOLO CRUM Interpreted By: Bo Anthony MD, 10/18/2020 12:40 AM Recent Labs Lab 10/19/20 0530 10/20/20 1025 10/21/20 0550 NA 147* 143 143 K 3.4* 3.9 3.5 CL 112* 111* 112* CR 2.57* 2.55* 2.18* BUN 42* 45* 38* GFR 21* 21* 26* GLU 104* 91 96 CA 8.7 8.3* 7.7* Recent Labs Lab 10/17/20231910/19/20 0530 10/21/20 0550 WBC 14.5* 11.0* 8.7 HGB 14.9 13.8 12.7 HCT 46.4 43.4 40.5 MCV 93.7 94.8 97.6 PLT 293 234 190 RBC 4.95 4.58 4.15 Recent Labs Lab 10/17/202319 INR 1.0 No results for input(s): TROP, TROPIWB in the last 168 hours. Recent Labs Lab 10/17/20231910/18/20 0116 LACTICACID 2.0 1.5 No results for input(s): BNP in the last 168 hours. Microbiology Results (last 14 days) Procedure Component Value Units Date/Time CORONAVIRUS (COVID-19) ANTIGEN DIRECT OPTICAL [[id number]] Collected: 10/20/20 1155 Order Status: Completed Lab Status: Final result Updated: 10/20/20 1226 Specimen: NASAL CORONAVIRUS ANTIGEN IA NEGATIVE Comment: NEGATIVE RESULTS DO NOT RULE OUT SARS-COV-2 INFECTION AND SHOULD NOT BE USED THE SOLE BASIS FOR TREATMENT OR PATIENT MANAGEMENT DECISIONS, INCLUDING INFECTION CONTROL DECISIONS. NEGATIVE RESULTS SHOULD BE CONSIDERED IN THE CONTEXT OF A PATIENT'S RECENT EXPOSURES, HISTORY AND THE PRESENCE OF CLINICAL SIGNS AND SYMPTOMS CONSISTENT WITH COVID 19. THIS TEST HAS BEEN AUTHORIZED BY THE FDA UNDER AN EMERGENCY USE AUTHORIZATION (EUA) FOR USE BY AUTHORIZED LABORATORIES. Specimen Type NASAL FIRST TEST UNKNOWN EMPLOYED IN HEALTHCARE NO SYMPTOMATIC DEFINED BY CDC NO HOSPITALIZATION STATUS YES PATIENT IN ICU NO RESIDENT OF [facility] NO CORONAVIRUS (COVID 19) PCR [[id number]] Order Status: Canceled Lab Status: No result Specimen: NASOPHARYNGEAL SWAB CULTURE URINE [[id number]] (Susceptibility) Collected: 10/17/20 2300 Order Status: Completed Lab Status: Final result Updated: 10/20/20 1059 Specimen: URINE, STRAIGHT CATH Spec. Description URINE STRAIGHT CATH Special Requests: NO SPECIAL REQUEST Culture Result: -- >100,000 CFU/mL ESCHERICHIA COLI Susceptibility Escherichia coli HOLLY (VITEK) AMOXICILLIN/CLAVULANIC A Sensitive AMPICILLIN Resistant AZTREONAM Sensitive CEFAZOLIN Sensitive CEFEPIME Sensitive CEFTRIAXONE Sensitive CIPROFLOXACIN Sensitive ERTAPENEM Sensitive ESBL NEG Sensitive GENTAMICIN Sensitive IMIPENEM Sensitive LEVOFLOXACIN INTERMEDIATE Intermediate MEROPENEM Sensitive NITROFURANTOIN Sensitive PIPRACIL/TAZO Sensitive TETRACYCLINE Resistant TRIMETH-SULFAMETH. Resistant Discharge Exam: Physical Exam Vitals reviewed. Constitutional: Appearance: Normal appearance. HENT: Head: Normocephalic. Nose: Nose normal. Mouth/Throat: Mouth: Mucous membranes are moist. Eyes: Conjunctiva/sclera: Conjunctivae normal. Cardiovascular: Rate and Rhythm: Normal rate and regular rhythm. Pulmonary: Effort: Pulmonary effort is normal. Breath sounds: Normal breath sounds. Abdominal: General: Bowel sounds are normal. Palpations: Abdomen is soft. Musculoskeletal: General: Normal range of motion. Cervical back: Normal range of motion. Skin: General: Skin is warm. Capillary Refill: Capillary refill takes less than 2 seconds. Neurological: General: No focal deficit present. Mental Status: She is alert and oriented to person, place, and time. Psychiatric: Mood and Affect: Mood normal. Behavior: Behavior normal. Filed Vitals: 10/20/20 1300 10/20/20 1953 10/21/20 0203 10/21/20 0437 BP: (!) 131/91 148/76 (!) 151/80 (!) 173/94 Pulse: 83 68 66 68 Resp: 18 20 20 20 Temp: 98.9 ??F (37.2 ??C) 99 ??F (37.2 ??C) 98.4 ??F (36.9 ??C) 98 ??F (36.7 ??C) TempSrc: Tympanic Tympanic Tympanic Tympanic SpO2: 95% 94% 93% 98% Weight: Height: Discharge Medications: Medication List START taking these medications cefdinir 300 MG Caps capsule Commonly known as: OMNICEF Take 1 capsule (300 mg total) by mouth daily for 4 days. CONTINUE taking these medications amLODIPine 10 MG tablet Commonly known as: NORVASC aspirin EC 81 MG tablet Commonly known as: ECOTRIN gabapentin 600 MG tablet Commonly known as: NEURONTIN TAKE ONE TABLET BY MOUTH THREE TIMES DAILY. metoprolol succinate ER 50 MG 24 hr tablet Commonly known as: TOPROL-XL vitamin D3 (cholecalciferol) 5000 UNITS capsule Where to Get Your Medications These medications were sent to [place] [id number] ?? cefdinir 300 MG Caps capsule Disposition: discharged to residential facility Durable medical equipment needed: 2 wheeled walker Patient Instructions: Activity: activity as tolerated Diet: Diet general Appropriate Wound care: none needed Therapies ordered: Physical Therapy (Evaluate and treat) Follow up Lab Orders: CMP CBC Signed REYMUNDO SOLARES Cosigned by Jasson Valdivia MD at 10/22/2020 10:59 AM CDT documented in this encounter Medications at Time of Discharge aspirin EC 81 MG tablet Take 1 tablet (81 mg total) by mouth daily. vitamin D3, cholecalciferol, 5000 UNITS capsule Take 1 capsule (125 mcg total) by mouth daily. amlodipine 10 MG tablet Take 10 mg by mouth daily. 1 11/11/2018 01/12/2021 cefdinir 300 MG Cap capsule Take 1 capsule (300 mg total) by mouth daily for 4 days. 4 capsule 10/21/2020 10/25/2020 GABAPENTIN 600 MG tabletIndications :Neuropathic pain TAKE ONE TABLET BY MOUTH THREE TIMES DAILY. 90 tablet 4 07/02/2020 02/14/2021 meloxicam 15 MG tablet 03/25/2020 04/10/2021 metoprolol succinate ER 50 MG 24 hr tablet Take 1 tablet (50 mg total) by mouth daily. 2 11/08/2018 01/06/2023 metoprolol tartrate 50 MG tablet 01/16/2020 01/12/2021 traMADol 50 MG tablet 03/10/2020 04/10/2021 documented as of this encounter Progress Notes * Juana Quevedo RN - 10/21/2020 1:03 PM CDT Patient discharging today to [facility] and her son is here to transport. Case closed. * Mariam Stern OT - 10/21/2020 11:17 AM CDT [facility] Occupational Therapy Inpatient Evaluation Time In: 1035 Time Out: 1058 Ordering Physician: Anay BELL Patient: Alayna Lawrence Location: 316/01 Diagnosis: Altered mental status [R41.82] Infestation by bed bug [B88.8] Cerebrovascular disease [I67.9] Urinary tract infection [N39.0] Past Medical History: Diagnosis Date ??? Depression ??? Displaced fracture of proximal end of right humerus 11/06/2018 ??? Hypertension ??? Ischemic stroke (CMS/HCC) Past Surgical History: Procedure Laterality Date ??? JOINT REPLACEMENT ??? SHOULDER SURGERY ??? TOTAL HIP ARTHROPLASTY bilateral SUBJECTIVE: Pain: denied having any pain at rest Pt reporting that she is moving into her son's house, and her son is moving out. She reports that she normally wears depends at home, and she is able to change depend and perform perineal care. Pt reporting that she is suppose to discharge today to a fci. Her son is coming in to transport. Prior Level of Function: ADLs: Bathing: Independent Toileting: Independent UB Dressing: Independent LB Dressing: Independent Feeding: Independent Grooming: Independent IADLs: Meal Preparation: Independent Cleaning: Independent Laundry: Family Assist Working/Volunteering: No Driving: No Care of Others: No Functional Mobility & Transfers: Bed Mobility: Independent Toilet Transfers: Independent Tub/Shower Transfers: Independent Patient has been completing functional mobility with single point cane. Home Environment: House Levels: 1 Entrance: 3 steps with Bilateral handrail(s) Living arrangements - The patient lives alone. OBJECTIVE: Observation: Pt was supine in bed, soiled depend, upon OTR arrival. Orientation Level: x 4 Cognition:follows 1 step commands 100% of the time, fair safety awareness and insight Affect: alert, pleasant Vision: wfl Hearing: wfl Precautions/Restrictions: Bed bugs Hand Dominance: right Upper Extremity R L Coordination Intact with adl Intact with adl Sensation Reports chronic numbness/tingling from previous CVA Denies any new changes ROM WFL WFL Systems Architect Strength 4/5 4/5 Comments: Pt demonstrating fair valeria UE strength through functional mobility. ADLs: Feeding:mod [place] - set up assist Toileting: Min A for perineal care in standing. UB Dressing: Not Performed this Date LB Dressing: Min A to don/doff briefs in standing/sitting Grooming: mod [place] - set up assist needed Bathing: Not Performed this Date Transfers: Bed mobility/rolling: [place] Supine <> sit: Supervision Sit <> stand: CGA Stand-pivot: Not Performed this Date Toilet/chair transfer: CGA to chair Functional Mobility: several steps from bed to chair with CGA Assistive Device utilized during transfers: 2 wheeled walker Activity performed this session: Self Care/Home management [id number]: Time: 12 Evaluation only this date. Education: Pt educated about purpose and benefit of participation in occupational therapy. ASSESSMENT: Alayna Lawrence is a 70-year-old female who presents with a primary complaint of Altered mental status [R41.82] Infestation by bed bug [B88.8] Cerebrovascular disease [I67.9] Urinary tract infection [N39.0]. Prior to admission, pt was mostly independent with self care and functional mobility with device, Pt is currently demonstrating decreased ability to complete ADLs andfunctional mobility secondary to decrease strength, decrease activity tolerance in standing, and dec rease safety awareness and insight. Pt will benefit from participation in skilled OT services at a SNF to improve independence in ADLs and functional mobility in order to return home safely Recommended Interventions: Therapeutic Activity, Therapeutic Exercise and Self- Care Training Rehab Potential: Fair Occupational Profile and History Complexity: Moderate (Expanded) Performance Skills Deficits: Low Performance Deficit Level: Low Clinical Decision Making: Low Evaluation Complexity Level: Low OT PLAN: Frequency: 1-2x/Day, 5 day a week Duration: 1 week Plan for next session: ADL and transfer training Anticipated Discharge at this time: Senior Care Facility Equipment Recommendations: 2 w/w Safety at conclusion of Treatment: Upon OTR departure, pt seated up in chair, call light within reach, and all needs met. * Aleshia Coon RN - 10/20/2020 11:39 PM CDT T 99.0, call light at pt's reach, communicative, y/clear, scheduled medication given. * REYMUNDO Solares - 10/20/2020 3:25 PM CDTSummary: Urinary tract infection, dementia Daily Progress Note Alayna Lawrence is a 70-year-old female patient. Primary Care Provider: JASSON VALDIVIA MD Attending Provider: Jasson Valdivia MD LOS: 2 Days Reason for admission: 10/17/2020 11:06 PM Subjective: Patient was seen today after breakfast doing well. Patient states initially when she came to the hospital she was still confused but has since improved. Her plan is to go to fci upon discharge. She had initially plan to ask her mother in-law to stay with her, but her house is in deplorablecondition. Patient states she is not able to care for herself as much as she would intend. The bestthing for her now is to go to fci where she will get the care and help she needs. Assessment/Plan: Altered mental status with chronic cerebrovascular disease- Resolved -Supportive care -Awaiting fci placement at [facility] Urinary tract infection -Urine culture with gram-negative rods -Rocephin -WBC 11 Chronic kidney disease stage III -Serum creatinine 2.55 GFR 19 -Continue to monitor CMP -Continue to encourage oral intake and continue IV fluid resuscitation Patient Active Problem List Diagnosis ??? Closed fracture of right proximal humerus ??? Aftercare following right shoulder joint replacement surgery ??? Ischemic stroke (CMS/HCC) ??? Status post placement of implantable loop recorder ??? Urinary tract infection ??? amLODIPine 10 mg Oral Daily ??? aspirin EC 81 mg Oral Daily ??? cefTRIAXone 1 g Intravenous Q24H ??? enoxaparin 30 mg Subcutaneous Nightly (enoxaparin) ??? gabapentin 600 mg Oral TID ??? metoprolol succinate ER 50 mg Oral Daily ??? vitamin D3 (cholecalciferol) 5,000 Units Oral Daily ??? sodium chloride 100 mL/hr at 10/20/20 0549 acetaminophen No Known Allergies Review of Systems: No shortness of breath No chest pain Objective: Blood pressure (!) 131/91, pulse 83, temperature 98.9 ??F (37.2 ??C), temperature source Tympanic, resp. rate 18, height 5' 7 (1.702 m), weight 72 kg (158 lb 12.8 oz), SpO2 95 %. Last 5 Recorded Weights 10/17/20 2326 10/18/20 0407 Weight: 68 kg (150 lb) 72 kg (158 lb 12.8 oz) Telemetry: Recent Labs Lab 10/19/20 0530 WBC 11.0* HGB 13.8 PLT 234 Recent Labs Lab 10/20/20 1025 NA 143 K 3.9 CL 111* CO2 19.3* AGAP 12.7 BUN 45* CR 2.55* GFRNON 19* GFR 21* GLU 91 CA 8.3* ALB 2.8* TBIL 0.2 ALKP 83 AST 19 ALT 19 Recent Labs Lab 10/17/20 2320 INR 1.0 No results found for this visit on 10/17/20 (from the past 8736 hour(s)). Results for orders placed or performed during the hospital encounter of 10/17/20 (from the past 8736 hour(s)) CULTURE URINE Collection Time: 10/17/20 11:00 PM Specimen: URINE, STRAIGHT CATH Result Value Ref Range Spec. Description URINE STRAIGHT CATH Special Requests: NO SPECIAL REQUEST Culture Result: >100,000 CFU/mL ESCHERICHIA COLI Susceptibility Escherichia coli - HOLLY (VITEK) AMPICILLIN Resistant AMOXICILLIN/CLAVULANIC A Sensitive AZTREONAM Sensitive CEFEPIME Sensitive CEFTRIAXONE Sensitive CEFAZOLIN Sensitive CIPROFLOXACIN Sensitive ESBL NEG Sensitive ERTAPENEM Sensitive NITROFURANTOIN Sensitive GENTAMICIN Sensitive IMIPENEM Sensitive LEVOFLOXACIN INTERMEDIATE Intermediate MEROPENEM Sensitive PIPRACIL/TAZO Sensitive TRIMETH-SULFAMETH. Resistant TETRACYCLINE Resistant No results found for: TROP estimated creatinine clearance is 20.2 mL/min (A) (based on SCr of 2.55 mg/dL (H)). Intake/Output Summary (Last 24 hours) at 10/20/2020 1546 Last data filed at 10/20/2020 1300 Gross per 24 hour Intake 2720 ml Output 1650 ml Net 1070 ml Physical Exam Constitutional: She is oriented to person, place, and time. She appears well-developed. HENT: Head: Normocephalic. Eyes: Pupils are equal, round, and reactive to light. Pulmonary/Chest: Effort normal and breath sounds normal. Abdominal: Soft. Bowel sounds are normal. Musculoskeletal: General: Normal range of motion. Cervical back: Normal range of motion. Neurological: She is alert and oriented to person, place, and time. Skin: Skin is warm and dry. Psychiatric: She has a normal mood and affect. Vitals reviewed. REYMUNDO SOLARES 10/20/2020 Cosigned by Jasson Valdivia MD at 10/22/2020 10:59 AM CDT * Cici Zhao RN - 10/20/2020 2:49 PM CDT Problem: Infection - Risk of, Urinary Catheter-Associated Urinary Tract Infection Goal: Absence of Urinary Catheter Associated Urinary Tract (UTI) Infection Signs and Symptoms Outcome: Progressing Problem: Reduced risk for falls/injury Goal: Reduced Risk for Falls/Injury Outcome: Progressing Goal: Reduced Risk of Confusion (Acute vs Chronic) Outcome: Progressing Goal: Reduced Risk of Symptomatic Depression Outcome: Progressing Goal: Reduced Risk of Altered Elimination Outcome: Progressing Goal: Reduced Risk of Dizziness/Vertigo/Balance Outcome: Progressing Goal: Reduced Risk of Polypharmacy Outcome: Progressing * Karthikeyan Joe, PT - 10/20/2020 12:[address] [facility] Physical Therapy Inpatient Evaluation Time In: 1135 Time Out: 1145 Alayna Lawrence 316/01 Altered mental status [R41.82] Infestation by bed bug [B88.8] Cerebrovascular disease [I67.9] Urinary tract infection [N39.0] Past Medical History: Diagnosis Date ??? Depression ??? Displaced fracture of proximal end of right humerus 11/06/2018 ??? Hypertension ??? Ischemic stroke (CMS/HCC) Past Surgical History: Procedure Laterality Date ??? JOINT REPLACEMENT ??? SHOULDER SURGERY ??? TOTAL HIP ARTHROPLASTY bilateral Subjective: Orientation: x 4 Pain: 0/10 Pain Location: Denies pain at this time Patient reports that she feels she can do most things but is still very weak and unsteady. Reports that she does not feel safe going home at this time. Home Environment: House Entrance: Threshold with No handrail. Living arrangements - The patient lives alone. Patient has been ambulatory with independence Objective: Patient was in bed upon pt arrival. Observation: Patient present and cooperative. Notable unsteadiness noted with transfer and ambulation Precautions/Restrictions: IV Catheter Fall Risk LE STRENGTH Left Right Hip flexion 4-/5 3+/5 Knee extension 4/5 4-/5 Knee flexion 4-/5 4-/5 Dorsiflexion 4/5 4-/5 Transfers: Bed mobility/rolling: CGA Supine to sit: CGA Sit to stand: CGA Pivot: CGA Ambulation: Patient ambulated 20' with Mod A x 1 and no AD. Activity performed this session: Evaluation only this date. Assessment: Alayna Lawrence is a 70-year-old female who presents with a primary complaint of Altered mental status [R41.82] Infestation by bed bug [B88.8] Cerebrovascular disease [I67.9] Urinary tract infection [N39.0]. Patient is demonstrating deficits in Strength, Mobility and Transfers leading to decreased safety, increased fall risk and decreased independence. Skilled therapy is appropriate at this time to address these impairments and to move the patient towards their goal of returning to modified independence with transfers and ambulation to reduce fall risk and improve overall safety. Recommended Interventions: Therapeutic Activity, Therapeutic Exercise, Gait Training and Self-Care Training Rehab Potential: Good Personal Factors/Co-Morbidities Affecting Care: 3-4+ Examination of Body Systems: Low (1-2) Clinical Presentation of Patient: Stable Uncomplicated Eval Complexity: Low PT Plan: Frequency: BID Duration: 1 week Anticipated Discharge at this time: Senior Care Facility Plan for next session: Exercise and ambulate Safety at conclusion of Treatment: Patient in Bed and Call Light in Reach * Juana Quevedo RN - 10/20/2020 12:38 PM CDT Patient has been accepted to [facility] and they can accept her tomorrow, 10/21/20. Naren Dixon will transport. * Juana Quevedo RN - 10/20/2020 11:20 AM CDT Left voicemail for naren Dixon. CM spoke with patient who is oriented today. She thinks that she couldbenefit from therapy. Channel Account Manager has provided a complete list of the following types of agencies, SNF, to patient utilizing the [employer] tablet. I have explained that the tablets will display dominguez quality metrics along with any entity in which [facility] has a vested interest to disclose any financial obligations. Selected options were discussed and [facility] Referral was made based on patient's preference. Prescreen has been completed, referral sent to [facility]. Awaiting PT eval and rapid COVID result. * Aleshia Coon RN - 10/19/2020 11:29 PM CDT Afebrile, call light at pt's reach, bed alarm on, communicative, catheter y/clear, scheduled medication given. * Leatha Payne NP - 10/19/2020 6:25 PM CDT Alayna Lawrence is a 70-year-old female patient who is extremely confused on admission and unable to even verbalize her own name. States today she woke up and felt significantly better. Is no longer confused. Mood is bright and conversation is appropriate. Plans are to discharge patient to long-term care facility. Patient Active Problem List Diagnosis Date Noted ??? Urinary tract infection 10/18/2020 ??? Status post placement of implantable loop recorder 12/15/2019 ??? Ischemic stroke (CMS/HCC) 08/27/2019 ??? Aftercare following right shoulder joint replacement surgery 12/06/2018 ??? Closed fracture of right proximal humerus 11/25/2018 Past Medical History: Diagnosis Date ??? Depression ??? Displaced fracture of proximal end of right humerus 11/06/2018 ??? Hypertension ??? Ischemic stroke (CMS/HCC) No Known Allergies Azebs height is 5' 7 (1.702 m) and weight is 72 kg (158 lb 12.8 oz). Her tympanic temperatureis 98.5 ??F (36.9 ??C). Her blood pressure is 116/77 and her pulse is 75. Her respiration is 18 andoxygen saturation is 95%. Subjective: Symptoms: Improved. (Thought process is much clearer today. No confusion noted. Alert and oriented x3.). Diet: Adequate intake. Activity level: Impaired due to weakness. Pain: She reports no pain. Objective: General Appearance: Comfortable, well-appearing, in no acute distress and not in pain. Vital signs: (most recent): Blood pressure 116/77, pulse 75, temperature 98.5 ??F (36.9 ??C), temperature source Tympanic, resp. rate 18, height 5' 7 (1.702 m), weight 72 kg (158 lb 12.8 oz), SpO2 95 %. Vital signs are normal. Output: Producing urine. Stool output assessment: Reports does feel somewhat constipated. HEENT: Normal HEENT exam. Lungs: Normal effort and normal respiratory rate. Breath sounds clear to auscultation. She is not in respiratory distress. Heart: Normal rate. Regular rhythm. S1 normal. Chest: No chest wall tenderness. Abdomen: Abdomen is soft. Bowel sounds are normal. There is no abdominal tenderness. Extremities: Normal range of motion. (Has some generalized weakness) Pulses: Distal pulses are intact. Neurological: Patient is alert and oriented to person, place and time. Pupils: Pupils are equal, round, and reactive to light. Skin: Warm and dry. Assessment & Plan Altered mental status with chronic cerebrovascular disease -less confused today -Fall risk -Reorient frequently -Assess for improvement -Evaluate medications for causation -CT scan of head-motion artifact was present however no acute intracranial abnormality was identified -We will consider MRI of brain if warranted ?? UTI - -Urine cultures with gram-negative rods -Urine culture sensitivity is pending -IV Rocephin for UTI -Intake and output -Encourage p.o. intake -IV fluids -Monitor WBCs-14.5 on admission -Trend WBCs:14.5-->11.0 ?? CKD with mild MOIRA -Trend BUN/creatinine/EGFR:33/2.33/-->42/2.57/18 -Baseline BUNs/creatinine/EGFR on 05/27/2020:47/1.94/26 -We will continue to monitor with CMP daily - 10/19/20 - reinitiated IV NS at 100/hour d/t worsening MOIRA LEATHA PAYNE NP 10/19/2020 Cosigned by Jasson Valdivia MD at 10/22/2020 10:54 AM CDT * Sophy Fairchild RN - 10/19/2020 10:18 AM CDT Problem: Infection - Risk of, Urinary Catheter-Associated Urinary Tract Infection Goal: Absence of Urinary Catheter Associated Urinary Tract (UTI) Infection Signs and Symptoms Outcome: Progressing Problem: Reduced risk for falls/injury Goal: Reduced Risk for Falls/Injury Outcome: Progressing Goal: Reduced Risk of Confusion (Acute vs Chronic) Outcome: Progressing Goal: Reduced Risk of Symptomatic Depression Outcome: Progressing Goal: Reduced Risk of Altered Elimination Outcome: Progressing Goal: Reduced Risk of Dizziness/Vertigo/Balance Outcome: Progressing Goal: Reduced Risk of Polypharmacy Outcome: Progressing * Rosemary Nagel RN - 10/18/2020 9:09 PM CDT Patient laying in bed. Vitals stable, bodily assessment completed. Scheduled medications given, PRNpain medication for headache. intact, telemetry monitoring continued, running NSR. Call lightwithin reach, fall precautions in place, bed alarms on, will continue plan of care. * Elena Davenport RN - 10/18/2020 6:06 PM CDT See notes under each care plan * Juana Quevedo RN - 10/18/2020 1:50 PM CDT Per NET TRAINER during discharge planning meeting, patient is very confused. CM spoke with patient's son/Roberto. Zack states that the patient has a history of strokes. Usually patient is able to bathe and dress herself, cook, clean, and manage her medications. Zack helps with laundry since her washer and dryer are in the basement. Zack said that she has periods of confusion. He is speaking with family about possible fci placement. Zack agreeable to prescreen being completed and will follow upwith CM about fci placement. Will continue to follow. 10/18/20 1330 Referral Data Referral Reason Discharge Planning Source of Information DPOA/Legal guardian Patient Information OB Patient < 19 yrs old No Primary Caregiver Self Support System Immediate family Baseline ADL's Functional Status Minimum assistance Living Arrangements Alone Type of Residence Private residence Ambulation Assistance No Active DME Cane;Front wheel walker Bathing/Grooming Assistance No Dressing Assistance No Behavior Confused Socioeconomic Needs Caregiver Needed No At Risk of Abuse or Neglect No Adequate Resources Yes Psychological Needs: Mental health concerns No Suspected Drug or Alcohol Abuse No Inappropriate Patient/Family Behaviors No Difficult Adjustment to Diagnosis No Recent Hospitalization Recent Hospitalization within 30 days No Anticipated Discharge Needs Change in Living Arrangements Yes In-Home Care or Equipment No Vocational and/or Role Loss No Inability to Complete ADL's No Legal Information Legal forms Power of Translator And Interpreter for health care Anticipated DC Plan Living Arrangements Other (Comment) (SNF) Support Systems Children Patient expects to be discharged to: Rehab facility Psychosocial Needs With Indication for Social Work Consult Diagnosis/prognosis resulting in poor adjustment or coping with illness No Diagnosis/prognosis with anticipated outcome of major lifestyle changes, including change in veterinary anatomist living environment No Family concerns/conflicts No Inadequate social and/or financial supports No Abuse and/or neglect of elder, adult or child No Psychiatric and/or substance abuse issues affecting current hospitalization No Homelessness with lack of safe discharge environment No Need for guardianship petition No Chaptered patient No [place] Only - Criminal Background check [place] only - Is patient going to fci? Yes 1.) Are transferring to a veterinary anatomist care facility for the first time Yes 2.) Have been in the hospital for more than 5 days No 3.) Are reasonably expected to remain at the veterinary anatomist care facility for more than 30 days No 4.) Have a known history of serious mental illness or substance abuse No 5.) Are independently ambulatory or mobile for more than a temporary period of time Yes Initiated background check No * Holly Payne RN - 10/18/2020 4:37 AM CDT Call light with in reach. Bed alarm on. Pt confused. Only aware of first name. Pt instructed on theuse of the call light. Pt oriented to surroundings. Problem: Infection - Risk of, Urinary Catheter-Associated Urinary Tract Infection Goal: Absence of Urinary Catheter Associated Urinary Tract (UTI) Infection Signs and Symptoms Outcome: Progressing Problem: Reduced risk for falls/injury Goal: Reduced Risk for Falls/Injury Outcome: Progressing Goal: Reduced Risk of Confusion (Acute vs Chronic) Outcome: Progressing Goal: Reduced Risk of Symptomatic Depression Outcome: Progressing Goal: Reduced Risk of Altered Elimination Outcome: Progressing Goal: Reduced Risk of Dizziness/Vertigo/Balance Outcome: Progressing Goal: Reduced Risk of Polypharmacy Outcome: Progressing documented in this encounter H&P Notes * Leatha Payne NP - 10/18/2020 12:26 PM CDT Attending Provider: Jasson Valdivia MD PCP: JASSON VALDIVIA MD Alayna Lawrence is an 70-year-old female. Reason for Admission: Urinary tract infection HPI: Abhijit Lawrence is a 70 year old female admitted through ER with altered mental status. Patient is unable to give history of any type. Cannot independently verbalize her name without problems. Carries on conversations without difficulty as long as specific information is not requi red. Denies any pain. Does not know where she is currently. Does not know her age or where she resides. Past medical history as found on problem list includes right shoulder joint replacement, ischemic stroke, implantable loop recorder. Urinary tract infection with an elevated white count was notedin the emergency department and patient was subsequently admitted inpatient for a UTI. Was placed on IV Rocephin for treatment. Remains confused at the time of this exam. Past Medical History: Diagnosis Date ??? Depression ??? Displaced fracture of proximal end of right humerus 11/06/2018 ??? Hypertension ??? Ischemic stroke ([facility]) Allergies: No Known Allergies Social History Tobacco Use ??? Smoking status: Former Smoker Packs/day: 1.00 Types: Cigarettes ??? Smokeless tobacco: Never Used Substance Use Topics ??? Alcohol use: Not Currently Past Surgical History: Procedure Laterality Date ??? JOINT REPLACEMENT ??? SHOULDER SURGERY ??? TOTAL HIP ARTHROPLASTY bilateral Family History Problem Relation Name Age of Onset ??? Heart Attack Mother Travel Exposure: None known No current facility-administered medications on file prior to encounter. Current Outpatient Medications on File Prior to Encounter Medication Sig ??? amlodipine 10 MG tablet Take 10 mg by mouth daily. ??? aspirin EC 81 MG tablet Take 81 mg by mouth daily. ??? GABAPENTIN 600 MG tablet TAKE ONE TABLET BY MOUTH THREE TIMES DAILY. ??? metoprolol succinate ER 50 MG 24 hr tablet Take 50 mg by mouth daily. ??? vitamin D3, cholecalciferol, 5000 UNITS capsule Take 1 capsule by mouth daily. Blood pressure (!) 180/82, pulse 82, temperature 97.9 ??F (36.6 ??C), resp. rate 20, height 5' 7 (1.702 m), weight 72 kg (158 lb 12.8 oz), SpO2 96 %. Review of Systems Reason unable to perform ROS: Patient with altered mental status. Unable to verbalize her name without prompts. Constitutional: Negative for fever and malaise/fatigue. Physical Exam Constitutional: She appears well-developed and well-nourished. She appears distressed. Disheveled. Confused. HENT: Head: Normocephalic and atraumatic. Mouth/Throat: Oropharynx is clear and moist. Eyes: Pupils are equal, round, and reactive to light. Conjunctivae and EOM are normal. Follows instructions on commands for eye exam. Neck: No thyromegaly present. Cardiovascular: Normal rate, regular rhythm, normal heart sounds and intact distal pulses. Pulmonary/Chest: Effort normal. She has rales. Fine rales auscultated bilateral bases. Abdominal: Soft. Bowel sounds are normal. She exhibits no distension. There is no abdominal tenderness. There is no guarding. Musculoskeletal: General: No edema. Normal range of motion. Cervical back: Normal range of motion and neck supple. Lymphadenopathy: She has no cervical adenopathy. Neurological: She is alert. She has normal reflexes. No cranial nerve deficit. Alert and able to carry on a conversation. However, is unable to verbalize her name, self information like date, where she lives, where she is currently at, world current history. Becomes increasingly anxious when being questioned. Skin: Skin is warm and dry. Vitals reviewed. Assessment and Plan: Altered mental status with chronic cerebrovascular disease -Fall risk -Reorient frequently -Assess for improvement -Evaluate medications for causation -CT scan of head-motion artifact was present however no acute intracranial abnormality was identified -We will consider MRI of brain if warranted UTI -Urine cultures with gram-negative rods -Urine culture sensitivity is pending -IV Rocephin for UTI -Intake and output -Encourage p.o. intake -IV fluids for hydration -Monitor WBCs-14.5 on admission CKD with mild MOIRA -Trend BUN/creatinine/EGFR:33/2.33/ -Baseline BUNs/creatinine/EGFR on 05/27/2020:347/1.94/ -We will continue to monitor with CMP daily LEATHA PAYNE NP 10/18/2020 Cosigned by Jasson Valdivia MD at 10/19/2020 7:47 AM CDT documented in this encounter Nursing Notes * Sophy Fairchild RN - 10/19/2020 4:09 PM CDT Patient is alert to person and place, disoriented to situation and time. Cough is productive, moistand strong. Complaints of a headache at 0840, Tylenol was given at 0849. Call light is within reach. * Sophy Fairchild RN - 10/19/2020 3:47 PM CDT * Rosemary Nagel RN - 10/18/2020 8:41 PM CDT Patient complaining of a headache. Channel Account Manager spoke with business integration manager MD Dr. Ayon for new orders. N.O. for tylenol 650 mg PRN q 6 hours given and placed. * Holly Payne RN - 10/18/2020 4:06 AM CDT Pt arrived from ED per stretcher. Report received form Jenise BARROW. Pt placed on contact isolation due to bed bugs. Pt oriented to new surroundings. Call light with in reach. Bed alarm on. Pt instructed to call for assistance. Pt can only give her first name. She does not know her last name. Pt confused. documented in this encounter ED Notes * Jenise Guido RN - 10/18/2020 3:52 AM CDT Pt needed bath before being transferred to 3rd floor * Juana Godoy - 10/18/2020 3:43 AM CDT Pt given bed bath, hair washed, linens changed, catheter care and perineal care done, lotion applied, and hair combed. Pt now resting on stretcher with no signs of distress noted at this time. * Jenise Guido RN - 10/18/2020 12:02 AM CDT Pt able to move all extremities without difficulty, moving about in bed. Has dried stool on legs, buttocks. Bugs, both and alive, noted in pt's sheets. Pt knows names only. Does not know birthdate, location, or time. Pt c/o generalized pain. * Collins Johnson NP - 10/17/2020 11:[address] Crum on the phone with Dr. Ley. * Paolo Crum DO - 10/17/2020 10:59 PM CDT Chief Complaint Chief Complaint Patient presents with ??? Neurologic Problem History of Present Illness 70-year-old female presents the emergency department via EMS due to altered mental status. EMS crew reports that they were called to the scene by the patient's son who states that the patient had been behaving oddly. He states that this had started in the morning, but she seemed worse this evening. The patient herself states that she feels bad, but cannot be more specific. She denies any pain. She is not able to state her name, location, or time. Patient does have a history of a stroke causing right-sided weakness. History provided by: Patient and EMS personnel History limited by: Mental status change seismic interpreter used: No Neurologic Problem Medical History ALLERGIES: No Known Allergies MEDICATIONS: Prior to Admission medications Medication Sig Start Date End Date Taking? Authorizing Provider amlodipine 10 MG tablet Take 10 mg by mouth daily. 11/11/18 Doc Abstract aspirin EC 81 MG tablet Take 81 mg by mouth daily. Doc Abstract GABAPENTIN 600 MG tablet TAKE ONE TABLET BY MOUTH THREE TIMES DAILY. 07/02/20 Huber Milligan MD metoprolol succinate ER 50 MG 24 hr tablet Take 50 mg by mouth daily. 11/08/18 Doc Abstract vitamin D3, cholecalciferol, 5000 UNITS capsule Take 1 capsule by mouth daily. Doc Abstract PAST MEDICAL HISTORY: Past Medical History: Diagnosis Date ??? Depression ??? Displaced fracture of proximal end of right humerus 11/06/2018 ??? Hypertension ??? Ischemic stroke (CMS/[facility]) PAST SURGICAL HISTORY: Past Surgical History: Procedure Laterality Date ??? JOINT REPLACEMENT ??? SHOULDER SURGERY ??? TOTAL HIP ARTHROPLASTY bilateral FAMILY HISTORY: Family History Problem Relation Name Age of Onset ??? Heart Attack Mother SOCIAL HISTORY: Social History Tobacco Use ??? Smoking status: Former Smoker Packs/day: 1.00 Types: Cigarettes ??? Smokeless tobacco: Never Used Substance Use Topics ??? Alcohol use: Not Currently ??? Drug use: No Review of Systems Review of Systems Unable to perform ROS: Mental status change Physical Exam Filed Vitals: 10/18/20 0145 10/18/20 0200 10/18/20 0215 10/18/20 0230 BP: (!) 168/118 (!) 203/142 Pulse: 90 80 95 87 Resp: Temp: TempSrc: SpO2: 98% 96% 95% 96% Weight: Height: Physical Exam Vitals and nursing note reviewed. Constitutional: General: She is not in acute distress. Appearance: She is well-developed. She is not diaphoretic. HENT: Head: Normocephalic and atraumatic. Eyes: Conjunctiva/sclera: Conjunctivae normal. Cardiovascular: Rate and Rhythm: Normal rate and regular rhythm. Heart sounds: Normal heart sounds. No murmur. Pulmonary: Effort: Pulmonary effort is normal. No respiratory distress. Breath sounds: Normal breath sounds. No wheezing or rales. Abdominal: General: Bowel sounds are normal. There is no distension. Palpations: Abdomen is soft. Tenderness: There is no abdominal tenderness. Neurological: General: No focal deficit present. Mental Status: She is alert. She is disoriented. Cranial Nerves: No cranial nerve deficit. Psychiatric: Behavior: Behavior normal. Thought Content: Thought content normal. Judgment: Judgment normal. Diagnostic Studies / Procedures ELECTROCARDIOGRAMS: No results found for this visit on 10/17/20. LABORATORY STUDIES: Results for orders placed or performed during the hospital encounter of 10/17/20 CBC W/DIFF AUTOMATED Result Value Ref Range WBC 14.5 (H) 4.0 - 10.8 x10'3/uL RBC 4.95 4.10 - 5.40 x10'6/uL HGB 14.9 12.0 - 16.0 G/DL HCT 46.4 36.0 - 47.0 % MCV 93.7 78.0 - 100.0 FL MCH 30.1 27.0 - 31.0 PG MCHC 32.1 (L) 33.0 - 36.0 G/DL RDW 13.6 11.5 - 14.5 % PLT 293 150 - 350 x10'3/uL MPV 10.5 (H) 7.4 - 10.4 FL Differential Comment NORMAL REFERENCE RANGE NOT ESTABLISHED FOR THE PROPORTIONAL LEUKOCYTE DIFFERENTIAL. SEG NEUTROPHILS 80.2 % LYMPHOCYTES 9.0 % MONOCYTES 9.9 % EOSINOPHILS 0.2 % BASOPHILS 0.4 % IMMATURE GRANS 0.3 % NRBC 0.0 % ABS. NEUTROPHILS 11.62 (H) 1.60 - 8.30 x10'3/uL ABS. LYMPHOCYTES 1.30 0.80 - 4.70 x10'3/uL ABS. MONOCYTES 1.44 0.00 - 1.50 x10'3/uL ABS. EOSINOPHILS 0.03 0.00 - 0.40 x10'3/uL ABS. BASOPHILS 0.06 0.00 - 0.20 x10'3/uL ABS. IMMATURE GRANULOCYTES 0.04 (H) 0.00 - 0.03 x10'3/uL ABS. NUCLEATED RBC'S 0.00 0.00 x10'3/uL COMPREHENSIVE METABOLIC PANEL Result Value Ref Range SODIUM 149 (H) 136 - 145 MMOL/L POTASSIUM 4.0 3.5 - 5.1 MMOL/L CHLORIDE S/P/B 112 (H) 98 - 107 MMOL/L CO2 22.7 21.0 - 32.0 MMOL/L GLUCOSE 135 (H) 70 - 99 MG/DL BUN 33 (H) 6 - 24 MG/DL CREATININE S/P/B 2.33 (H) 0.55 - 1.02 MG/DL CALCIUM 9.6 8.4 - 10.5 MG/DL BILIRUBIN TOTAL S/P/B 0.6 0.2 - 1.0 MG/DL ALKALINE PHOSPHATASE S/P/B 106 55 - 142 U/L AST 18 15 - 37 U/L ALT 19 14 - 59 U/L TOTAL PROTEIN S/P/B 7.8 6.4 - 8.2 G/DL ALBUMIN S/P/B 3.6 3.4 - 5.0 G/DL ANION GAP 14.3 5.0 - 15.0 MMOL/L OSMOLALITY (CALC) 317 MOSM/KG eGFR Non-Afr. Amer. 21 (L) >89 ML/MIN/1.73 M2 eGFR Afr. Amer. 24 (L) >89 ML/MIN/1.73 M2 GFR NOTES GFR REFERENCES: ETHANOL Result Value Ref Range Alcohol <0.003 <0.003 G/DL PARTIAL THROMBOPLASTIN TIME,PTT Result Value Ref Range PTT 30.6 25.1 - 36.5 SEC PROTIME/INR, VENOUS Result Value Ref Range Protime 11.7 10.2 - 12.9 SEC INR 1.0 0.9 - 1.1 URINALYSIS WI REFLEX TO CULTURE Specimen: URINE, CATH Result Value Ref Range COLOR (U) YELLOW TRANSPARENCY CLOUDY Specific Baxter (U) 1.025 1.000 - 1.025 U PH 7.0 5.0 - 8.0 LEUKOCYTE ESTERASE TRACE (A) NEGATIVE NITRITES NEGATIVE NEGATIVE PROTEIN (U) 3+ (A) NEGATIVE URINE GLUCOSE NEGATIVE NEGATIVE U KETONES NEGATIVE NEGATIVE UROBILINOGEN 0.2 <1.0 EU/DL BLOOD 3+ (A) NEGATIVE WBC/HPF 50-100 (A) 0 - 5 /HPF RBC/HPF 5-10 (A) 0 - 5 /HPF EPI/HPF OCCASIONAL /LPF BACTERIA (URINE) 4+ /HPF BILIRUBIN (U) NEGATIVE NEGATIVE CULTURE & SENSITIVITY INDICATED? SPECIMEN SETUP FOR CULTURE LACTIC ACID Result Value Ref Range LACTIC ACID 2.0 0.4 - 2.0 MMOL/L LACTIC ACID Result Value Ref Range LACTIC ACID 1.5 0.4 - 2.0 MMOL/L DRUG SCREEN RAPID Result Value Ref Range CANNABINOIDS SCREEN (U) POSITIVE (A) NEGATIVE PHENCYCLIDINE PCP (U) NEGATIVE NEGATIVE COCAINE METABOLITES (U) NEGATIVE NEGATIVE METHAMPHETAMINE (U) NEGATIVE NEGATIVE OPIATE SCREEN (U) NEGATIVE NEGATIVE AMPHETAMINE (U) NEGATIVE NEGATIVE BENZODIAZEPINES SCREEN (U) NEGATIVE NEGATIVE TRICYCLIC ANTIDEPRESSANT SCREEN (U) NEGATIVE NEGATIVE METHADONE (U) NEGATIVE NEGATIVE BARBITURATES SCREEN (U) NEGATIVE NEGATIVE OXYCODONE SCREEN (U) NEGATIVE NEGATIVE PROPOXYPHENE SCREEN (U) NEGATIVE NEGATIVE URINE TOX COMMENT THIS TEST METHODOLOGY IS DESIGNED AND OFFERED A RAPID TURNAROUND, QUALITATIVE SCREENING PROCEDURE TO AID IN THE IMMEDIATE MEDICAL ASSESSMENT OF PATIENTS SUSPECTED OF SUBSTANCE ABUSE. IMAGING STUDIES XR CHEST PORTABLE Final Result by User, [email or web address] (10/18 004) Examination: Chest radiograph Exam time: 10/18/2020 12:30 AM Clinical history: Cough Comparison: 03/04/2020 Technique: One view of the chest obtained. Findings: Loop recorder projects over the left lower chest. Lungs are adequately inflated and clear. No pneumothorax or pleural effusions evident. The cardiac silhouette, mediastinal contours, and pulmonary vessels appear within normal limits. No acute osseous abnormality. Partially visualized right shoulder reverse arthroplasty hardware. IMPRESSION: No radiographic evidence of active disease of the chest. Referred By: PAOLO CRUM Interpreted By: Bo Anthony MD, 10/18/2020 12:[address] HEAD WO CON Final Result by User, [email or web address] (10/17 2315) EXAMINATION: CT HEAD WITHOUT CONTRAST DATE: 10/17/2020 10:51 PM INDICATION: Mental status changes. Stroke alert. COMPARISON: CT head 12/15/2019. Prior MRI brain reports from 03/10/2019 and 12/12/2018. TECHNIQUE: Noncontrast CT imaging through the brain was performed in the axial plane. CT dose lowering techniques were used, to include: automated exposure control, adjustment for patient size, and or use of iterative reconstruction. FINDINGS: Intracranial contents: The ventricles and sulci are moderately prominent. There is no midline shift or mass effect. Allowing for motion artifact on some images, no acute intracranial hemorrhage or abnormal extra-axial fluid collection is identified. Redemonstrated dense mineralization of the left lentiform nucleus and dorsal left thalamus. Associated volume loss. Asymmetric volume loss also in the left middle cerebral peduncle. Moderate to extensive confluent hypodensity in the cerebral white matter bilaterally. Small area of encephalomalacia in the right frontal lobe appears grossly unchanged, but this area is particularly obscured by motion. Chronic infarcts in the cerebellum, right more so than left. Mild asymmetric volume loss of the right cerebellar hemisphere. Mild atherosclerotic calcification of the internal carotid arteries. Bones and extracranial soft tissues: The calvarium is intact. The visualized paranasal sinuses and mastoid air cells are clear. IMPRESSION: 1. Allowing for motion artifact on several images, no acute intracranial abnormality identified by CT. If there is high clinical suspicion for acute ischemic infarct, MRI would be more sensitive. 2. Redemonstrated unilateral left basal ganglia and thalamus calcification with associated volume loss. Given the presence of a left basal ganglia developmental venous anomaly (reported on prior MRIs), this is likely secondary to chronic venous ischemia. 3. Generalized brain volume loss and moderate to extensive small vessel ischemic changes in the cerebral white matter. 4. Chronic infarcts in the cerebellum, right more so than left. Small chronic infarct in the right frontal lobe. Findings reported to Dr. Crum in the emergency department at 11:12 PM on 10/17/2020. Electronically signed by: Eze Monique M.D. 10/17/2020 11:14:00 PM ED Course / Medical Decision Making MDM Number of Diagnoses or Management Options Altered mental status: new and requires workup Cerebrovascular disease: minor Infestation by bed bug: new and does not require workup Urinary tract infection: new and requires workup Amount and/or Complexity of Data Reviewed Clinical lab tests: reviewed and ordered Tests in the radiology section of CPT??: reviewed and ordered Risk of Complications, Morbidity, and/or Mortality Presenting problems: moderate Diagnostic procedures: moderate Management options: high Patient Progress Patient progress: stable ED Course as of Oct 19 243 Mon Oct 18, [address] of the head shows no acute findings. Patient appears out of agitated throughout her stay inthe emergency department, but her son is able to easily calm her. Findings appear to indicate urinary tract infection as cause of altered mental status with trait leukocyte esterase and 4+ bacteria with an elevated white blood cell count of 14,500. Chest x-ray negative. Nursing staff has noted visible bedbugs when cleaning patient. Patient accepted for admission by Dr. Wolfe with plan for IV antibiotics. Consideration for MRI tomorrow if mental status not improving. [JW] ED Course User Index [JW] Paolo Crum DO Clinical Impression Urinary tract infection (Primary) Altered mental status Cerebrovascular disease Infestation by bed bug Disposition: Admit Paolo Crum DO 10/18/20243 * Collins Johnson NP - 10/17/2020 10:57 PM CDT Patient comes in per EMS with confusion and stroke like symptoms. Patient was seen earlier in the day and was sick. Son returned to residence and she was confused and no acting right. 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 When EMS arrived she was incontinent. She does havea history of stroke in past that affects her right side. documented in this encounter Plan of Treatment Not on file documented as of this encounter Procedures Procedure Name Priority Date/Time Associated Diagnosis Comments COMPREHENSIVE METABOLIC PANEL Routine 10/21/2020 5:50 AM CDT CBC W/DIFF AUTOMATED Routine 10/21/2020 5:50 AM CDT CORONAVIRUS (COVID-19) ANTIGEN DIRECT OPTICAL Routine 10/20/2020 11:55 AM CDT COMPREHENSIVE METABOLIC PANEL Routine 10/20/2020 10:25 AM CDT COMPREHENSIVE METABOLIC PANEL STAT 10/19/2020 5:30 AM CDT CBC W/DIFF AUTOMATED STAT 10/19/2020 5:30 AM CDT DRUG SCREEN RAPID STAT 10/18/2020 1:3 3 AM CDT LACTIC ACID STAT 10/18/2020 1:16 AM CDT XR CHEST PORTABLE STAT 10/18/2020 12: 39 AM CDT PARTIAL THROMBOPLASTIN TIME,PTT STAT 10/17/2020 11:20 PM CDT PROTHROMBIN TIME, VENOUS STAT 10/17/2020 11:20 PM CDT COMPREHENSIVE METABOLIC PANEL STAT 10/17/2020 11:20 PM CDT LACTIC ACID STAT 10/17/2020 11:20 PM CDT CBC W/DIFF AUTOMATED STAT 10/17/2020 11:20 PM CDT ETHANOL STAT 10/17/2020 11:20 PM CDT URINALYSIS WI REFLEX TO CULTURE STAT 10/17/2020 11:00 PM CDT URINE BACTERIA CULTURE Routine 11:[address] HEAD WO CON STAT 10/17/2020 10:55 PM CDT ECG 12-LEAD Routine 10/17/2020 10:53 PM CDT documented in this encounter Results * (ABNORMAL) CBC W/DIFF AUTOMATED (10/21/2020 5:50 AM CDT) WBC 8.7 4.0 - 10.8 x10'3/uL 10/21/2020 6:12 AM CDT [facility] RBC 4.15 4.10 - 5.40 x10'6/uL 10/21/2020 6:12 AM CDT [facility] HGB 12.7 12.0 - 16.0 G/DL 10/21/2020 6:12 AM CDT [facility] HCT 40.5 36.0 - 47.0 % 10/21/2020 6:12 AM CDT [facility] MCV 97.6 78.0 - 100.0 FL 10/21/2020 6:12 AM CDT [facility] MCH 30.6 27.0 - 31.0 PG 10/21/2020 6:12 AM CDT [facility] MCHC 31.4(L) 33.0 - 36.0 G/DL 10/21/2020 6:12 AM CDT [facility] RDW 13.5 11.5 - 14.5 % 10/21/2020 6:12 AM CDT [facility] PLT 190 150 - 350 x10'3/uL 10/21/2020 6:12 AM CDT [facility] MPV 10.5(H) 7.4 - 10.4 FL 10/21/2020 6:12 AM CDT [facility] DIFFERENTIAL COMMENT NORMAL REFERENCE RANGE NOT ESTABLISHED FOR THE PROPORTIONAL LEUKOCYTE DIFFERENTIAL. 10/21/2020 6:12 AM CDT [facility] SEG NEUTROPHILS 65.9 % 6:12 AM CDT [facility] LYMPHOCYTES 19.5 % 10/21/2020 6:12 AM CDT [facility] MONOCYTES 8.8 % 10/21/2020 6:12 AM CDT [facility] EOSINOPHILS 4.7 % 10/21/2020 6:12 AM CDT [facility] BASOPHILS 0.8 % 10/21/2020 6:12 AM CDT [facility] IMMATURE GRANS % 0.3 % 10/22/19 6:12 AM CDT [facility] NRBC 0.0 % 10/21/2020 6:12 AM CDT [facility] ABS. NEUTROPHILS 5.74 1.60 - 8.30 x10'3/uL 10/21/2020 6:12 AM CDT [facility] ABS. LYMPHOCYTES 1.70 0.80 - 4.70 x10'3/uL 10/21/2020 6:12 AM CDT [facility] ABS. MONOCYTES 0.77 0.00 - 1.50 x10'3/uL 10/21/2020 6:12 AM CDT [facility] ABS. EOSINOPHILS 0.41(H) 0.00 - 0.40 x10'3/uL 10/21/2020 6:12 AM CDT [facility] ABS. BASOPHILS 0.07 0.00 - 0.20 x10'3/uL 10/21/2020 6:12 AM CDT [facility] ABS. IMMATURE GRANULOCYTES 0.03 0.00 - 0.03 x10'3/uL 10/21/2020 6:12 AM CDT [facility] ABS. NUCLEATED RBC'S 0.00 0.00 x10'3/uL 10/21/2020 6:12 AM CDT [facility] 10/21/2020 5:50 AM CDT [facility] Final Resu lt [facility] [address] [place] [address], * (ABNORMAL) COMPREHENSIVE METABOLIC PANEL (10/21/2020 5:50 AM CDT) SODIUM S/P/B 143 136 - 145 MMOL/L 10/21/2020 6:30 AM CDT [facility] POTASSIUM S/P/B 3.5 3.5 - 5.1 MMOL/L 10/21/2020 6:30 AM CDT [facility] CHLORIDE S/P/B 112(H) 98 - 107 MMOL/L 10/21/2020 6:30 AM CDT [facility] CO2 20.2(L) 21.0 - 32.0 MMOL/L 10/21/2020 6:30 AM [facility] GLUCOSE 96 70 - 99 MG/DL 10/21/2020 6:30 AM [facility] Comment: FASTING GLUCOSE 100 TO 125 MG/DL IS CONSISTENT WITH IMPAIRED FASTING GLUCOSE. FASTING GLUCOSE >125 MG/DL IS CONSISTENT WITH DIABETES. RANDOM GLUCOSE >200 MG/DL WITH HYPERGLYCEMIC SYMPTOMS IS CONSISTENT WITH DIABETES. PER ADA GUIDELINES BUN 38(H) 6 - 24 MG/DL 10/21/2020 6:30 AM [facility] CREATININE S/P/B 2.18(H) 0.55 - 1.02 MG/DL 10/21/2020 6:30 AM [facility] CALCIUM S/P/B 7.7(L) 8.4 - 10.5 MG/DL 10/21/2020 6:30 AM [facility] BILIRUBIN TOTAL S/P/B 0.3 0.2 - 1.0 MG/DL 10/21/2020 6:30 AM [facility] Comment: THIS ASSAY IS NOT RECOMMENDED FOR PATIENTS UNDERGOING TREATMENT WITH ELTROMBOPAG DUE TO THE POTENTIAL FOR FALSELY ELEVATED RESULTS. ALKALINE PHOSPHATASE S/P/B 76 55 - 142 U/L 10/21/2020 6:30 AM [facility] AST 10(L) 15 - 37 U/L 10/21/2020 6:30 AM [facility] ALT 14 14 - 59 U/L 10/21/2020 6:30 AM [facility] TOTAL PROTEIN S/P/B 5.6(L) 6.4 - 8.2 G/DL 10/21/2020 6:30 AM [facility] ALBUMIN S/P/B 2.4(L) 3.4 - 5.0 G/DL 10/21/2020 6:30 AM [facility] ANION GAP 10.8 5.0 - 15.0 MMOL/L 10/21/2020 6:30 AM [facility] OSMOLALITY (CALC) 305 MOSM/KG 08/05/2 021 6:30 AM CDT [facility] Comment:REFERENCE RANGE NOT ESTABLISHED EGFR NON-AFR. AMER. 22(L) >89 ML/MIN/1. 73 M2 10/21/2020 6:30 AM CDT [facility] EGFR AFR. AMER. 26(L) >89 ML/MIN/1. 73 M2 10/21/2020 6:30 AM CDT [facility] GFR NOTES GFR REFERENCE S: 10/21/2020 6:30 AM CDT [facility] Comment: THE ESTIMATED GFR IS CALCULATED USING THE 2009 CKD-EPI EQUATION. THE FOLLOWING CATEGORIES FOR GRADING RENAL FUNCTION ARE RECOMMENDED BY THE INTERNATIONAL SOCIETY OF NEPHROLOGY (KDIGO 2012 CLINICAL PRACTICE GUIDELINE). G1,NORMAL OR HIGH: >89 ml/min/1.73 m2 G2,MILDLY DECREASED: 60-89 ml/min/1.73 m2 G3A,MILDLY TO MODERATELY DECREASED: 45-59 ml/min/1.73 m2 G3B,MODERATELY TO SEVERELY DECREASED: 30-44 ml/min/1.73 m2 G4,SEVERELY DECREASED: 15-29 ml/min/1.73 m2 G5,KIDNEY FAILURE: <15 ml/min/1.73 m2 10/21/2020 5:50 AM CDT Kelsey DWYER [facility]ORAT[facility] Final Resu lt [facility] [address] [place] [address], * CORONAVIRUS (COVID-19) ANTIGEN DIRECT OPTICAL (10/20/2020 11:55 AM CDT) CORONAVIRUS ANTIGEN IA NEGATIVE NEGATIVE 10/20/2020 12:26 PM CDT [facility] Comment: NEGATIVE RESULTS DO NOT RULE OUT SARS-COV-2 INFECTION AND SHOULD NOT BE USED THE SOLE BASIS FOR TREATMENT OR PATIENT MANAGEMENT DECISIONS, INCLUDING INFECTION CONTROL DECISIONS. NEGATIVE RESULTS SHOULD BE CONSIDERED IN THE CONTEXT OF A PATIENT'S RECENT EXPOSURES, HISTORY AND THE PRESENCE OF CLINICAL SIGNS AND SYMPTOMS CONSISTENT WITH COVID 19. THIS TEST HAS BEEN AUTHORIZED BY THE FDA UNDER AN EMERGENCY USE AUTHORIZATION (EUA) FOR USE BY AUTHORIZED LABORATORIES. SPECIMEN TYPE NASAL 10/20/2020 11:55 AM CDT [facility] FIRST TEST UNKNOWN 10/20/2020 11:55 AM CDT [facility] EMPLOYED IN HEALTHCARE NO 10/20/2020 11:55 AM CDT [facility] SYMPTOMATIC DEFINED BY CDC NO 10/20/2020 11:55 AM CDT [facility] HOSPITALIZATION STATUS YES 10/20/2020 11:55 AM CDT [facility] PATIENT IN ICU NO 10/20/2020 11:55 AM CDT [facility] RESIDENT OF [facility] CARE NO 10/20/2020 11:55 AM CDT [facility] Specimen from nose (specimen) NASAL STRUCTURE / Unknown 10/20/2020 11:55 AM CDT Jasson Valdivia MD MICROBIOLOGY - GENERAL PARMINDER RIVERA Final Result [facility] [address] [place] [address], * (ABNORMAL) COMPREHENSIVE METABOLIC PANEL (10/20/2020 10:25 AM CDT) SODIUM S/P/B 143 136 - 145 MMOL/L 10/20/2020 11:04 AM CDT [facility] POTASSIUM S/P/B 3.9 3.5 - 5.1 MMOL/L 10/20/2020 11:04 AM CDT [facility] CHLORIDE S/P/B 111(H) 98 - 107 MMOL/L 10/20/2020 11:04 AM CDT [facility] CO2 19.3(L) 21.0 - 32.0 MMOL/L 10/20/2020 11:04 AM CDT [facility] GLUCOSE 91 70 - 99 MG/DL 10/20/2020 11:04 AM CDT [facility] Comment: FASTING GLUCOSE 100 TO 125 MG/DL IS CONSISTENT WITH IMPAIRED FASTING GLUCOSE. FASTING GLUCOSE >125 MG/DL IS CONSISTENT WITH DIABETES. RANDOM GLUCOSE >200 MG/DL WITH HYPERGLYCEMIC SYMPTOMS IS CONSISTENT WITH DIABETES. PER ADA GUIDELINES BUN 45(H) 6 - 24 MG/DL 10/20/2020 11:04 AM [facility] CREATININE S/P/B 2.55(H) 0.55 - 1.02 MG/DL 10/20/2020 11:04 AM [facility] CALCIUM S/P/B 8.3(L) 8.4 - 10.5 MG/DL 10/20/2020 11:04 AM [facility] BILIRUBIN TOTAL S/P/B 0.2 0.2 - 1.0 MG/DL 10/20/2020 11:04 AM [facility] Comment: THIS ASSAY IS NOT RECOMMENDED FOR PATIENTS UNDERGOING TREATMENT WITH ELTROMBOPAG DUE TO THE POTENTIAL FOR FALSELY ELEVATED RESULTS. ALKALINE PHOSPHATASE S/P/B 83 55 - 142 U/L 10/20/2020 11:04 AM [facility] AST 19 15 - 37 U/L 10/20/2020 11:04 AM [facility] ALT 19 14 - 59 U/L 10/20/2020 11:04 AM [facility] TOTAL PROTEIN S/P/B 6.3(L) 6.4 - 8.2 G/DL 10/20/2020 11:04 AM [facility] ALBUMIN S/P/B 2.8(L) 3.4 - 5.0 G/DL 10/20/2020 11:04 AM [facility] ANION GAP 12.7 5.0 - 15.0 MMOL/L 10/20/2020 11:04 AM [facility] OSMOLALITY (CALC) 307 MOSM/KG 021 11:04 AM [facility] Comment:REFERENCE RANGE NOT ESTABLISHED EGFR NON-AFR. AMER. 19(L) >89 ML/MIN/1. 73 M2 10/20/2020 11:04 AM [facility] EGFR AFR. AMER. 21(L) >89 ML/MIN/1. 73 M2 10/20/2020 11:04 AM CDT [facility] GFR NOTES GFR REFERENCE S: 10/20/2020 11:04 AM CDT [facility] Comment: THE ESTIMATED GFR IS CALCULATED USING THE 2009 CKD-EPI EQUATION. THE FOLLOWING CATEGORIES FOR GRADING RENAL FUNCTION ARE RECOMMENDED BY THE INTERNATIONAL SOCIETY OF NEPHROLOGY (KDIGO 2012 CLINICAL PRACTICE GUIDELINE). G1,NORMAL OR HIGH: >89 ml/min/1.73 m2 G2,MILDLY DECREASED: 60-89 ml/min/1.73 m2 G3A,MILDLY TO MODERATELY DECREASED: 45-59 ml/min/1.73 m2 G3B,MODERATELY TO SEVERELY DECREASED: 30-44 ml/min/1.73 m2 G4,SEVERELY DECREASED: 15-29 ml/min/1.73 m2 G5,KIDNEY FAILURE: <15 ml/min/1.73 m2 10/20/2020 10:2 5 AM CDT Kelsey DWYER [facility]OR[facility] Final Resu lt [facility] [address] [place] [address], * (ABNORMAL) COMPREHENSIVE METABOLIC PANEL (10/19/2020 5:30 AM CDT) SODIUM S/P/B 147(H) 136 - 145 MMOL/L 10/19/2020 5:56 AM CDT [facility] POTASSIUM S/P/B 3.4(L) 3.5 - 5.1 MMOL/L 10/19/2020 5:56 AM CDT [facility] CHLORIDE S/P/B 112(H) 98 - 107 MMOL/L 10/19/2020 5:56 AM CDT [facility] CO2 23.1 21.0 - 32.0 MMOL/L 10/19/2020 5:56 AM CDT [facility] GLUCOSE 104(H) 70 - 99 MG/DL 10/19/2020 5:56 AM CDT [facility] Comment: FASTING GLUCOSE 100 TO 125 MG/DL IS CONSISTENT WITH IMPAIRED FASTING GLUCOSE. FASTING GLUCOSE >125 MG/DL IS CONSISTENT WITH DIABETES. RANDOM GLUCOSE >200 MG/DL WITH HYPERGLYCEMIC SYMPTOMS IS CONSISTENT WITH DIABETES. PER ADA GUIDELINES BUN 42(H) 6 - 24 MG/DL 10/19/2020 5:56 AM [facility] CREATININE S/P/B 2.57(H) 0.55 - 1.02 MG/DL 10/19/2020 5:56 AM [facility] CALCIUM S/P/B 8.7 8.4 - 10.5 MG/DL 10/19/2020 5:56 AM [facility] BILIRUBIN TOTAL S/P/B 0.6 0.2 - 1.0 MG/DL 10/19/2020 5:56 AM [facility] Comment: THIS ASSAY IS NOT RECOMMENDED FOR PATIENTS UNDERGOING TREATMENT WITH ELTROMBOPAG DUE TO THE POTENTIAL FOR FALSELY ELEVATED RESULTS. ALKALINE PHOSPHATASE S/P/B 84 55 - 142 U/L 10/19/2020 5:56 AM [facility] AST 15 15 - 37 U/L 10/19/2020 5:56 AM [facility] ALT 22 14 - 59 U/L 10/19/2020 5:56 AM [facility] TOTAL PROTEIN S/P/B 6.5 6.4 - 8.2 G/DL 10/19/2020 5:56 AM [facility] ALBUMIN S/P/B 2.9(L) 3.4 - 5.0 G/DL 10/19/2020 5:56 AM [facility] ANION GAP 11.9 5.0 - 15.0 MMOL/L 10/19/2020 5:56 AM [facility] OSMOLALITY (CALC) 315 MOSM/KG 021 5:56 AM [facility] Comment:REFERENCE RANGE NOT ESTABLISHED EGFR NON-AFR. AMER. 18(L) >89 ML/MIN/1. 73 M2 10/19/2020 5:56 AM T [facility] EGFR AFR. AMER. 21(L) >89 ML/MIN/1. 73 M2 10/19/2020 5:56 AM CDT [facility] GFR NOTES GFR REFERENCE S: 10/19/2020 5:56 AM CDT [facility] Comment: THE ESTIMATED GFR IS CALCULATED USING THE 2009 CKD-EPI EQUATION. THE FOLLOWING CATEGORIES FOR GRADING RENAL FUNCTION ARE RECOMMENDED BY THE INTERNATIONAL SOCIETY OF NEPHROLOGY (KDIGO 2012 CLINICAL PRACTICE GUIDELINE). G1,NORMAL OR HIGH: >89 ml/min/1.73 m2 G2,MILDLY DECREASED: 60-89 ml/min/1.73 m2 G3A,MILDLY TO MODERATELY DECREASED: 45-59 ml/min/1.73 m2 G3B,MODERATELY TO SEVERELY DECREASED: 30-44 ml/min/1.73 m2 G4,SEVERELY DECREASED: 15-29 ml/min/1.73 m2 G5,KIDNEY FAILURE: <15 ml/min/1.73 m2 10/19/2020 5:30 AM CDT us Paolo Crum DO LABORATORY Final Result [facility] [address] [place] [id number], * (ABNORMAL) CBC W/DIFF AUTOMATED (10/19/2020 5:30 AM CDT) WBC 11.0(H) 4.0 - 10.8 x10'3/uL 10/19/2020 5:43 AM CDT [facility] RBC 4.58 4.10 - 5.40 x10'6/uL 10/19/2020 5:43 AM CDT [facility] HGB 13.8 12.0 - 16.0 G/DL 10/19/2020 5:43 AM CDT [facility] HCT 43.4 36.0 - 47.0 % 10/19/2020 5:43 AM CDT [facility] MCV 94.8 78.0 - 100.0 FL 10/19/2020 5:43 AM CDT [facility] MCH 30.1 27.0 - 31.0 PG 10/19/2020 5:43 AM CDT [facility] MCHC 31.8(L) 33.0 - 36.0 G/DL 10/19/2020 5:43 AM CDT [facility] RDW 13.8 11.5 - 14.5 % 10/19/2020 5:43 AM CDT [facility] PLT 234 150 - 350 x10'3/uL 10/19/2020 5:43 AM CDT [facility] MPV 10.7(H) 7.4 - 10.4 FL 10/19/2020 5:43 AM CDT [facility] DIFFERENTIAL COMMENT NORMAL REFERENCE RANGE NOT ESTABLISHED FOR THE PROPORTIONAL LEUKOCYTE DIFFERENTIAL. 10/19/2020 5:43 AM CDT [facility] SEG NEUTROPHILS 64.6 % 5:43 AM CDT [facility] LYMPHOCYTES 23.4 % 10/19/2020 5:43 AM CDT [facility] MONOCYTES 9.2 % 10/19/2020 5:43 AM CDT [facility] EOSINOPHILS 1.9 % 10/19/2020 5:43 AM CDT [facility] BASOPHILS 0.7 % 10/19/2020 5:43 AM CDT [facility] IMMATURE GRANS % 0.2 % 10/20/19 5:43 AM CDT [facility] NRBC 0.0 % 10/19/2020 5:43 AM CDT [facility] ABS. NEUTROPHILS 7.12 1.60 - 8.30 x10'3/uL 10/19/2020 5:43 AM CDT [facility] ABS. LYMPHOCYTES 2.58 0.80 - 4.70 x10'3/uL 10/19/2020 5:43 AM CDT [facility] ABS. MONOCYTES 1.02 0.00 - 1.50 x10'3/uL 10/19/2020 5:43 AM CDT [facility] ABS. EOSINOPHILS 0.21 0.00 - 0.40 x10'3/uL 10/19/2020 5:43 AM CDT [facility] ABS. BASOPHILS 0.08 0.00 - 0.20 x10'3/uL 10/19/2020 5:43 AM CDT [facility] ABS. IMMATURE GRANULOCYTES 0.02 0.00 - 0.03 x10'3/uL 10/19/2020 5:43 AM CDT [facility] ABS. NUCLEATED RBC'S 0.00 0.00 x10'3/uL 10/19/2020 5:43 AM CDT [facility] 10/19/2020 5:30 AM CDT Paolo Crum DO LABORATORY Final Result [facility] [address] [place] [address], * (ABNORMAL) DRUG SCREEN RAPID (10/18/2020 1:33 AM CDT) Pathologist [facility] CANNABINOIDS SCREEN (U) POSITIVE(A) NEGATIVE 10/18/2020 1:59 AM CDT [facility] PHENCYCLIDINE PCP (U) NEGATIVE NEGATIVE 10/18/2020 1:59 AM CDT [facility] COCAINE METABOLITES (U) NEGATIVE NEGATIVE 10/18/2020 1:59 AM CDT [facility] METHAMPHETAMINE (U) NEGATIVE NEGATIVE 10/18/2020 1:59 AM CDT [facility] OPIATE SCREEN (U) NEGATIVE NEGATIVE 021 1:59 AM CDT [facility] AMPHETAMINE (U) NEGATIVE NEGATIVE 1:59 AM CDT [facility] BENZODIAZEPINES SCREEN (U) NEGATIVE NEGATIVE 10/18/2020 1:59 AM CDT [facility] TRICYCLIC ANTIDEPRESSANT SCREEN (U) NEGATIVE NEGATIVE 10/18/2020 1:59 AM CDT [facility] METHADONE (U) NEGATIVE NEGATIVE 10/18/2020 1:59 AM CDT [facility] BARBITURATES SCREEN (U) NEGATIVE NEGATIVE 10/18/2020 1:59 AM CDT [facility] OXYCODONE SCREEN (U) NEGATIVE NEGATIVE 10/18/2020 1:59 AM CDT [facility] PROPOXYPHENE SCREEN (U) NEGATIVE NEGATIVE 10/18/2020 1:59 AM CDT [facility] URINE TOX COMMENT THIS TEST METHODOLOGY IS DESIGNED AND OFFERED A RAPID TURNAROUND, QUALITATIVE SCREENING PROCEDURE TO AID IN THE IMMEDIATE MEDICAL ASSESSMENT OF PATIENTS SUSPECTED OF SUBSTANCE ABUSE. 10/18/2020 1:40 AM CDT [facility] Comment: CLINICAL CONSIDERATION AND PROFESSIONAL JUDGMENT MUST BE APPLIED TO ANY DRUG OF ABUSE TEST RESULT, BOTH POSITIVE AND NEGATIVE. CONFIRMATORY QUANTITATIVE RESULTS ARE AVAILABLE THROUGH OUR REFERENCE LABORATORY. Urine specimen (specimen) URINE SPECIMEN / Unknown 10/18/2020 1:33 AM CDT Paolo Crum DO URINE ORDERABLES Final Result Performing Organization Address [facility]/ZIP Co de Phone Number [facility] [address] [place] [address], * LACTIC ACID (10/18/2020 1:16 AM CDT) LACTIC ACID VENOUS 1.5 0.4 - 2.0 MMOL/L 10/18/2020 2:16 AM CDT [facility] 10/18/2020 1:16 AM CDT Paolo Crum DO LABORATORY Final Result Performing Organization Address City/[facility]/ZIP Co de Phone Number [facility] [address] [place] [address], * XR CHEST PORTABLE (10/18/2020 12:39 AM CDT) Anatomical Region Laterality Modality Chest Radiographic Sharon ging 10/18/2020 12:4 0 AM CDT Impressions 10/18/2020 12:42 AM CDT IMPRESSION: No radiographic evidence of active disease of the chest. Referred By: PAOLO CRUM Interpreted By: Bo Anthony MD, 10/18/2020 12:40 AM Narrative 10/18/2020 12:42 AM CDT Examination: Chest radiograph Exam time: 10/18/2020 12:30 AM Clinical history: Cough Comparison: 03/04/2020 Technique: ??One view of the chest obtained. Findings: Loop recorder projects over the left lower chest. Lungs are adequately inflated and clear. No pneumothorax or pleural effusions evident. The cardiac silhouette, mediastinal contours, and pulmonary vessels appear within normal limits. No acute osseous abnormality. Partially visualized right shoulder reverse arthroplasty hardware. Procedure Note Bo Anthony MD - 10/18/2020 Examination: Chest radiograph Exam time: 10/18/2020 12:30 AM Clinical history: Cough Comparison: 03/04/2020 Technique: One view of the chest obtained. Findings: Loop recorder projects over the left lower chest. Lungs areadequately inflated and clear. No pneumothorax or pleural effusionsevident. The cardiac silhouette, mediastinal contours, and pulmonaryvessels appear within normal limits. No acute osseous abnormality.Partially visualized right shoulder reverse arthroplasty hardware. IMPRESSION: No radiographic evidence of active disease of the chest. Referred By: PAOLO RCUM Interpreted By: Bo Anthony MD, 10/18/2020 12:40 AM us Paolo Crum DO GENERAL IMAGING Final Result * LACTIC ACID (10/17/2020 11:20 PM CDT) LACTIC ACID VENOUS 2.0 0.4 - 2.0 MMOL/L 10/17/2020 11:56 PM CDT [facility] 10/17/2020 11:2 0 PM CDT us Paolo Crum DO LABORATORY Final Result [facility] [address] [place] [address], [place] [phone] * PROTIME/INR, VENOUS (10/17/2020 11:20 PM CDT) PROTIME 11.7 10.2 - 12.9 SEC 10/17/2020 11:44 PM CDT [facility] INR 1.0 0.9 - 1.1 10/17/2020 11:44 PM CDT [facility] 10/17/2020 11:2 0 PM CDT us Paolo Crum DO LABORATORY Final Result Performing Organization Address City/[facility]/ZIP Co de Phone Number [facility] [address] [place] [address], * PARTIAL THROMBOPLASTIN TIME,PTT (10/17/2020 11:20 PM CDT) PTT 30.6 25.1 - 36.5 SEC 10/17/2020 11:44 PM CDT [facility] Comment:THERAPEUTIC RANGE: 4 6.2-77.0 SEC 10/17/2020 11:2 0 PM CDT us Paolo Crum DO LABORATORY Final Result Performing Organization Address City/[facility]/ZIP Co de Phone Number [facility] [address] [place] [address], * ETHANOL (10/17/2020 11:20 PM CDT) ALCOHOL S/P/B <0.003 <0.003 G/DL 10/18/2020 12:05 AM CDT [facility] 10/17/2020 11:2 0 PM CDT us Paolo Crum DO LABORATORY Final Result Performing Organization Address City/[facility]/ZIP Co de Phone Number [facility] [address] [place] [address], * (ABNORMAL) COMPREHENSIVE METABOLIC PANEL (10/17/2020 11:20 PM CDT) SODIUM S/P/B 149(H) 136 - 145 MMOL/L 10/18/2020 12:05 AM T [facility] POTASSIUM S/P/B 4.0 3.5 - 5.1 MMOL/L 10/18/2020 12:05 AM T [facility] CHLORIDE S/P/B 112(H) 98 - 107 MMOL/L 10/18/2020 12:05 AM T [facility] CO2 22.7 21.0 - 32.0 MMOL/L 10/18/2020 12:05 AM [facility] GLUCOSE 135(H) 70 - 99 MG/DL 10/18/2020 12:05 AM T [facility] Comment: FASTING GLUCOSE 100 TO 125 MG/DL IS CONSISTENT WITH IMPAIRED FASTING GLUCOSE. FASTING GLUCOSE >125 MG/DL IS CONSISTENT WITH DIABETES. RANDOM GLUCOSE >200 MG/DL WITH HYPERGLYCEMIC SYMPTOMS IS CONSISTENT WITH DIABETES. PER ADA GUIDELINES BUN 33(H) 6 - 24 MG/DL 10/18/2020 12:05 AM T [facility] CREATININE S/P/B 2.33(H) 0.55 - 1.02 MG/DL 10/18/2020 12:05 AM T [facility] CALCIUM S/P/B 9.6 8.4 - 10.5 MG/DL 10/18/2020 12:05 AM [facility] BILIRUBIN TOTAL S/P/B 0.6 0.2 - 1.0 MG/DL 10/18/2020 12:05 AM [facility] Comment: THIS ASSAY IS NOT RECOMMENDED FOR PATIENTS UNDERGOING TREATMENT WITH ELTROMBOPAG DUE TO THE POTENTIAL FOR FALSELY ELEVATED RESULTS. ALKALINE PHOSPHATASE S/P/B 106 55 - 142 U/L 10/18/2020 12:05 AM T [facility] AST 18 15 - 37 U/L 10/18/2020 12:05 AM T [facility] ALT 19 14 - 59 U/L 10/18/2020 12:05 AM CDT [facility] TOTAL PROTEIN S/P/B 7.8 6.4 - 8.2 G/DL 10/18/2020 12:05 AM T [facility] ALBUMIN S/P/B 3.6 3.4 - 5.0 G/DL 10/18/2020 12:05 AM T [facility] ANION GAP 14.3 5.0 - 15.0 MMOL/L 10/18/2020 12:05 AM T [facility] OSMOLALITY (CALC) 317 MOSM/KG 021 12:05 AM T [facility] Comment:REFERENCE RANGE NOT ESTABLISHED EGFR NON-AFR. AMER. 21(L) >89 ML/MIN/1. 73 M2 10/18/2020 12:05 AM T [facility] EGFR AFR. AMER. 24(L) >89 ML/MIN/1. 73 M2 10/18/2020 12:05 AM T [facility] GFR NOTES GFR REFERENCE S: 10/18/2020 12:05 AM [facility] Comment: THE ESTIMATED GFR IS CALCULATED USING THE 2009 CKD-EPI EQUATION. THE FOLLOWING CATEGORIES FOR GRADING RENAL FUNCTION ARE RECOMMENDED BY THE INTERNATIONAL SOCIETY OF NEPHROLOGY (KDIGO 2012 CLINICAL PRACTICE GUIDELINE). G1,NORMAL OR HIGH: >89 ml/min/1.73 m2 G2,MILDLY DECREASED: 60-89 ml/min/1.73 m2 G3A,MILDLY TO MODERATELY DECREASED: 45-59 ml/min/1.73 m2 G3B,MODERATELY TO SEVERELY DECREASED: 30-44 ml/min/1.73 m2 G4,SEVERELY DECREASED: 15-29 ml/min/1.73 m2 G5,KIDNEY FAILURE: <15 ml/min/1.73 m2 10/17/2020 11:2 0 PM CDT us Paolo Crum DO LABORATORY Final Result [facility] [address] [place] [address], * (ABNORMAL) CBC W/DIFF AUTOMATED (10/17/2020 11:20 PM CDT) WBC 14.5(H) 4.0 - 10.8 x10'3/uL 10/17/2020 11:24 PM CDT [facility] RBC 4.95 4.10 - 5.40 x10'6/uL 10/17/2020 11:24 PM CDT [facility] HGB 14.9 12.0 - 16.0 G/DL 10/17/2020 11:24 PM CDT [facility] HCT 46.4 36.0 - 47.0 % 10/17/2020 11:24 PM CDT [facility] MCV 93.7 78.0 - 100.0 FL 10/17/2020 11:24 PM CDT [facility] MCH 30.1 27.0 - 31.0 PG 10/17/2020 11:24 PM CDT [facility] MCHC 32.1(L) 33.0 - 36.0 G/DL 10/17/2020 11:24 PM CDT [facility] RDW 13.6 11.5 - 14.5 % 10/17/2020 11:24 PM CDT [facility] PLT 293 150 - 350 x10'3/uL 10/17/2020 11:24 PM CDT [facility] MPV 10.5(H) 7.4 - 10.4 FL 10/17/2020 11:24 PM CDT [facility] DIFFERENTIAL COMMENT NORMAL REFERENCE RANGE NOT ESTABLISHED FOR THE PROPORTIONAL LEUKOCYTE DIFFERENTIAL. 10/17/2020 11:24 PM CDT [facility] SEG NEUTROPHILS 80.2 % 11:24 PM CDT [facility] LYMPHOCYTES 9.0 % 10/17/2020 11:24 PM CDT [facility] MONOCYTES 9.9 % 10/17/2020 11:24 PM CDT [facility] EOSINOPHILS 0.2 % 10/17/2020 11:24 PM CDT [facility] BASOPHILS 0.4 % 10/17/2020 11:24 PM CDT [facility] IMMATURE GRANS % 0.3 % 10/18/19 11:24 PM CDT [facility] NRBC 0.0 % 10/17/2020 11:24 PM CDT [facility] ABS. NEUTROPHILS 11.62(H) 1.60 - 8.30 x10'3/uL 10/17/2020 11:24 PM CDT [facility] ABS. LYMPHOCYTES 1.30 0.80 - 4.70 x10'3/uL 10/17/2020 11:24 PM CDT [facility] ABS. MONOCYTES 1.44 0.00 - 1.50 x10'3/uL 10/17/2020 11:24 PM CDT [facility] ABS. EOSINOPHILS 0.03 0.00 - 0.40 x10'3/uL 10/17/2020 11:24 PM CDT [facility] ABS. BASOPHILS 0.06 0.00 - 0.20 x10'3/uL 10/17/2020 11:24 PM CDT [facility] ABS. IMMATURE GRANULOCYTES 0.04(H) 0.00 - 0.03 x10'3/uL 10/17/2020 11:24 PM CDT [facility] ABS. NUCLEATED RBC'S 0.00 0.00 x10'3/uL 10/17/2020 11:24 PM CDT [facility] 10/17/2020 11:2 0 PM CDT us Paolo Crum DO LABORATORY Final Result [facility] [address] [place] [address], * CULTURE URINE (10/17/2020 11:00 PM CDT) SPEC DESCRIPTION URINE STRAIGHT CATH 10/18/2020 12:36 AM CDT [facility] SPECIAL REQUESTS NO SPECIAL REQUEST 10/18/2020 12:36 AM CDT [facility] CULTURE RESULT >100,000 CFU/mL ESCHERICHIA COLI 10/20/2020 10:59 AM CDT [facility] URINE SPECIMEN OBTAINED BY SINGLE CATHETERIZATION OF URINARY BLADDER / Unknown 10/17/2020 11:00 PM CDT 10/18/2020 12:35 AM CDT Narrative Organism Antibiotic Method Susceptibility Escherichia coli AMPICILLIN HOLLY (VITEK) Resistant Escherichia coli AMOXICILLIN/CLAVULANIC A HOLLY (VITEK) Sensitive Escherichia coli AZTREONAM HOLLY (VITEK) Sensitive Escherichia coli CEFEPIME HOLLY (VITEK) Sensitive Escherichia coli CEFTRIAXONE HOLLY (VITEK) Sensitive Escherichia coli CEFAZOLIN HOLLY (VITEK) Sensitive Escherichia coli CIPROFLOXACIN HOLLY (VITEK) Sensitive Escherichia coli ESBL HOLLY (VITEK) NEG: Sensitive Escherichia coli ERTAPENEM HOLLY (VITEK) Sensitive Escherichia coli NITROFURANTOIN HOLLY (VITEK) Sensitive Escherichia coli GENTAMICIN HOLLY (VITEK) Sensitive Escherichia coli IMIPENEM HOLLY (VITEK) Sensitive Escherichia coli LEVOFLOXACIN HOLLY (VITEK) INTERMEDIATE: Intermediate Escherichia coli MEROPENEM HOLLY (VITEK) Sensitive Escherichia coli PIPRACIL/TAZO HOLLY (VITEK) Sensitive Escherichia coli TRIMETH-SULFAMETH. HOLLY (VITEK) Resistant Escherichia coli TETRACYCLINE HOLLY (VITEK) Resistant us Paolo Crum DO MICROBIOLOGY - GENERAL ORDERABLE S Final Result [facility] [address] [place] [address], [id number] [facility] [address] [place] [address], * (ABNORMAL) URINALYSIS WI REFLEX TO CULTURE (10/17/2020 11:00 PM CDT) COLOR (U) YELLOW 10/18/2020 12:34 AM CDT [facility] TRANSPARENCY CLOUDY 10/18/2020 12:34 AM CDT [facility] SPECIFIC GRAVITY (U) 1.025 1.000 - 1.025 10/18/2020 12:34 AM CDT [facility] U PH 7.0 5.0 - 8.0 10/18/2020 12:34 AM CDT [facility] LEUKOCYTES (U) TRACE(A) NEGATIVE 10/18/2020 12:34 AM CDT [facility] NITRITES NEGATIVE NEGATIVE 10/18/2020 12:34 AM CDT [facility] PROTEIN (U) 3+(A) NEGATIVE 10/18/2020 12:34 AM CDT [facility] URINE GLUCOSE NEGATIVE NEGATIVE 10/18/2020 12:34 AM CDT [facility] KETONES MG/DL (U) NEGATIVE NEGATIVE 10/18/2020 12:34 AM CDT [facility] UROBILINOGEN 0.2 <1.0 EU/DL 10/18/2020 12:34 AM CDT [facility] BLOOD (U) 3+(A) NEGATIVE 10/18/2020 12:34 AM CDT [facility] WBC/HPF 50-100(A) 0 - 5 /HPF 10/18/2020 12:34 AM CDT [facility] RBC/HPF 5-10(A) 0 - 5 /HPF 10/18/2020 12:34 AM CDT [facility] EPI/HPF OCCASIONAL /LPF 10/18/2020 12:34 AM CDT [facility] BACTERIA (U) 4+ /HPF 10/18/2020 12:34 AM CDT [facility] BILIRUBIN (U) NEGATIVE NEGATIVE 10/18/2020 12:34 AM CDT [facility] CULTURE & SENSITIVITY INDICATED? SPECIMEN SETUP FOR CULTURE 10/18/2020 12:34 AM CDT [facility] URINE SPECIMEN OBTAINED VIA INDWELLING URINARY CATHETER / Unknown 10/17/2020 11:00 PM CDT us Paolo Crum DO URINE ORDERABLES Final Result [facility] [address] [place] [address], * CT HEAD WO CON (10/17/2020 10:55 PM CDT) Anatomical Region Laterality Modality Head Computed Tomogra phy 10/17/2020 11:0 4 PM CDT Impressions 10/17/2020 11:14 PM CDT IMPRESSION: 1. Allowing for motion artifact on several images, no acute intracranial abnormality identified by CT. If there is high clinical suspicion for acute ischemic infarct, MRI would be more sensitive. 2. Redemonstrated unilateral left basal ganglia and thalamus calcification with associated volume loss. Given the presence of a left basal ganglia developmental venous anomaly (reported on prior MRIs), this is likely secondary to chronic venous ischemia. 3. Generalized brain volume loss and moderate to extensive small vessel ischemic changes in the cerebral white matter. 4. Chronic infarcts in the cerebellum, right more so than left. Small chronic infarct in the right frontal lobe. Findings reported to Dr. Crum in the emergency department at 11:12 PM on 10/17/2020. Electronically signed by: ??Eze Monique M.D. 10/17/2020 11:14:00 PM Narrative 10/17/2020 11:14 PM CDT EXAMINATION: CT HEAD WITHOUT CONTRAST DATE: 10/17/2020 10:51 PM INDICATION: Mental status changes. Stroke alert. COMPARISON: CT head 12/15/2019. Prior MRI brain reports from 03/10/2019 and 12/12/2018. TECHNIQUE: Noncontrast CT imaging through the brain was performed in the axial plane. CT dose lowering techniques were used, to include: automated exposure control, adjustment for patient size, and or use of iterative reconstruction. FINDINGS: Intracranial contents: The ventricles and sulci are moderately prominent. ??There is no midline shift or mass effect. ??Allowing for motion artifact on some images, no acute intracranial hemorrhage or abnormal extra-axial fluid collection is identified. Redemonstrated dense mineralization of the left lentiform nucleus and dorsal left thalamus. Associated volume loss. Asymmetric volume loss also in the left middle cerebral peduncle. Moderate to extensive confluent hypodensity in the cerebral white matter bilaterally. Small area of encephalomalacia in the right frontal lobe appears grossly unchanged, but this area is particularly obscured by motion. Chronic infarcts in the cerebellum, right more so than left. Mild asymmetric volume loss of the right cerebellar hemisphere. Mild atherosclerotic calcification of the internal carotid arteries. Bones and extracranial soft tissues: The calvarium is intact. The visualized paranasal sinuses and mastoid air cells are clear. Procedure Note Eze Monique MD - 10/17/2020 EXAMINATION: CT HEAD WITHOUT CONTRAST DATE: 10/17/2020 10:51 PM INDICATION: Mental status changes. Stroke alert. COMPARISON: CT head 12/15/2019. Prior MRI brain reports from 03/10/2019 and12/12/2018. TECHNIQUE: Noncontrast CT imaging through the brain was performed in theaxial plane. CT dose lowering techniques were used, to include: automatedexposure control, adjustment for patient size, and or use of iterativereconstruction. FINDINGS: Intracranial contents: The ventricles and sulci are moderately prominent. There is no midlineshift or mass effect. Allowing for motion artifact on some images, noacute intracranial hemorrhage or abnormal extra-axial fluid collection isidentified. Redemonstrated dense mineralization of the left lentiform nucleus anddorsal left thalamus. Associated volume loss. Asymmetric volume loss alsoin the left middle cerebral peduncle. Moderate to extensive confluent hypodensity in the cerebral white matterbilaterally. Small area of encephalomalacia in the right frontal lobeappears grossly unchanged, but this area is particularly obscured bymotion. Chronic infarcts in the cerebellum, right more so than left. Mildasymmetric volume loss of the right cerebellar hemisphere. Mild atherosclerotic calcification of the internal carotid arteries. Bones and extracranial soft tissues: The calvarium is intact. The visualized paranasal sinuses and mastoid aircells are clear. IMPRESSION: 1. Allowing for motion artifact on several images, no acute intracranialabnormality identified by CT. If there is high clinical suspicion foracute ischemic infarct, MRI would be more sensitive. 2. Redemonstrated unilateral left basal ganglia and thalamus calcificationwith associated volume loss. Given the presence of a left basal gangliadevelopmental venous anomaly (reported on prior MRIs), this is likelysecondary to chronic venous ischemia. 3. Generalized brain volume loss and moderate to extensive small vesselischemic changes in the cerebral white matter. 4. Chronic infarcts in the cerebellum, right more so than left. Smallchronic infarct in the right frontal lobe. Findings reported to Dr. Crum in the emergency department at 11:12 PM on10/17/2020. Electronically signed by: Eze Monique M.D. 10/17/2020 11:14:00 PM us Paolo Crum DO CT Final Result * ECG 12 lead (10/17/2020 10:53 PM CDT) 10/17/2020 10:5 3 PM CDT Narrative [facility] - 10/18/2020 9:23 PM CDT ? [facility] ?[address] [place], [place] ??[address] ? Test Date: ?2020-10-17 Pat Name: ? ALAYNA LAWRENCE ?Department: ? Room: ? [address] Gender: ? Female ? 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 : ?1950 ? Requested By: JASSON VALDIVIA Order Number: [id number] ? Reading MD: ?? Andrzej Fuentes ? Measurements Intervals ?[place] ? Rate: ? 90 ? P: ?54 OR: ? 140 ?QRS: ?-56 QRSD: ? 85 ? T: ?68 QT: ? 365 ? QTc: ?447 ? Interpretive Statements SINUS RHYTHM POSSIBLE LEFT ATRIAL ENLARGEMENT ??[-0.1mV P WAVE IN V1/V2] PATTERN CONSISTENT WITH PULMONARY DISEASE LEFT ANTERIOR FASCICULAR BLOCK ??[QRS AXIS <= -45, QR IN I, RS IN II] INFERIOR MYOCARDIAL INFARCTION , PROBABLY OLD [40+ ms Q WAVE AND/OR ST/T ABNORMALITY IN II/aVF] Procedure Note Andrzej Fuentes MD - 10/18/[address] [place] [address] Test Date: 2020-10-17 Pat Name: ALAYNA LAWRENCE Department: [facility] Gender: Female Vegetable Washer: : 1950 Requested By: JASSON VALDIVIA Order Number: [id number] Tae MD: Sherif Measurements Intervals [place] Rate: 90 P: 54 OR: 140 QRS: -56 QRSD: 85 T: 68 QT: 365 QTc: 447 Interpretive Statements SINUS RHYTHM POSSIBLE LEFT ATRIAL ENLARGEMENT [-0.1mV P WAVE IN V1/V2] PATTERN CONSISTENT WITH PULMONARY DISEASE LEFT ANTERIOR FASCICULAR BLOCK [QRS AXIS <= -45, QR IN I, RS IN II] INFERIOR MYOCARDIAL INFARCTION , PROBABLY OLD [40+ ms Q WAVE AND/OR ST/T ABNORMALITY IN II/aVF] us Jasson Valdivia MD ECG ORDERABLES Final Resul t [facility] documented in this encounter Visit Diagnoses Diagnosis Urinary tract infection- Primary Urinary tract infection, site not specified Urinary tract infection Urinary tract infection, site not specified Altered mental status Cerebrovascular disease Cerebrovascular disease, unspecified Infestation by bed bug Other specified infestations Chronic kidney disease, unspecified CKD stage documented in this encounter Admitting Diagnoses Diagnosis Urinary tract infection Urinary tract infection, site not specified documented in this encounter Administered Medications Inactive Administered Medications - up to 3 most recent administrations Medication Order MAR Action Action Date Dose Rate Site acetaminophen (TYLENOL) tablet 650 mg 650 mg, Oral, Every 6 hours PRN, Mild pain (Scale 1 - 3), Starting on Sun10/18/20 at 2049, Until Joan 10/21/20 at 1601, Maximum dose of acetaminophen is 4000 mg from all sources in 24 hours. Given 10/19/2020 8:49 AM CDT 650 mg Given 10/18/2020 9:09 PM CDT 650 mg amLODIPine (NORVASC) tablet 10 mg 10 mg, Oral, Daily, First dose on Sun10/18/20 at 0900, Until Discontinued Given 10/21/2020 9:29 AM CDT 10 mg Given 10/20/2020 8:52 AM CDT 10 mg Given 10/19/2020 8:35 AM CDT 10 mg aspirin EC (ECOTRIN) tablet 81 mg 81 mg, Oral, Daily, First dose on Sun10/18/20 at 0900, Until Discontinued, Do not break, chew, or crush. Given 10/21/2020 9:27 AM CDT 81 mg Given 10/20/2020 8:51 AM CDT 81 mg Given 10/19/2020 8:35 AM CDT 81 mg cefTRIAXone (ROCEPHIN) 1 g in sodium chloride 0.9 % 50 mL IVPB 1 g, Intravenous, at 100 mL/hr, Every 24 hours, First dose on Sun10/18/20 at 0445, Until Discontinued New Bag 10/21/2020 4:48 AM CDT 1 g 100 mL /hr New Bag 10/20/2020 4:40 AM CDT 1 g 100 mL/hr New Bag 10/19/2020 3:58 AM CDT 1 g 100 mL/hr cephALEXin (KEFLEX) capsule 500 mg 500 mg, Oral, Once, 1 dose, On Sun10/18/20 at 0115 Given 10/18/2020 1:29 AM CDT 500 mg enoxaparin (LOVENOX) 30 MG/0.3ML syringe 30 mg 30 mg, Subcutaneous, Nightly (enoxaparin), First dose on Sun10/18/20 at 2100, Until Discontinued, Dose has been adjusted from 40mg to 30mg for CrCl of 22.2ml/min Administer by deep SubQ injection alternating between the left or right anterolateral and left or right posterolateral abdominal wall. Given 10/20/2020 9:08 PM CDT 30 mg Right Lower Abdomen Given 10/19/2020 8:33 PM CDT 30 mg Le ft Lower Abdomen Given 10/18/2020 9:09 PM CDT 30 mg Le ft Lower Abdomen gabapentin (NEURONTIN) capsule 600 mg 600 mg, Oral, 3 times daily, First dose on Sun10/18/20 at 0900, Until Discontinued Given 10/21/2020 9:28 AM CDT 600 m g Given 10/20/2020 9:08 PM CDT 600 mg Given 10/20/2020 3:52 PM CDT 600 mg guaiFENesin ER (MUCINEX) 12 hr tablet 600 mg 600 mg, Oral, 2 times daily, First dose on Sun10/21/20 at 0900, Until Discontinued, Do not break, chew, or crush. Given 10/21/2020 9:29 AM CDT 600 mg metoprolol succinate ER (TOPROL-XL) 24 hr tablet 50 mg 50 mg, Oral, Daily, First dose on Sun10/18/20 at 0900, Until Discontinued, May be split in half along the tablet score line; do not chew or crush. Given 10/21/2020 9:28 AM CDT 50 mg Given 10/20/2020 8:51 AM CDT 50 mg Given 10/19/2020 8:35 AM CDT 50 mg sodium chloride 0.9% bolus infusion SOLN 1,000 mL 1,000 mL, Intravenous, Administer over 15 Minutes, Once, 1 dose, On Sun10/18/20 at 0115 New Bag 10/18/2020 1:29 AM CDT 1,000 mLs sodium chloride 0.9% infusion at 100 mL/hr, Intravenous, Continuous, Starting on Sun10/19/20 at 1915, Until Sun10/21/20 at 1601 New Bag 10/21/2020 2:03 AM CDT 100 mL/hr New Bag 10/20/2020 3:52 PM CDT 100 mL/hr New Bag 10/20/2020 5:49 AM CDT 100 mL/hr vitamin D3 (cholecalciferol) tablet 5,000 Units 5,000 Units, Oral, Daily, First dose on Sun10/18/20 at 0900, Until Discontinued, 1000 units = 25 mcg Given 10/21/2020 9:28 AM CDT 5,000 Units Given 10/20/2020 8:50 AM CDT 5,000 Units Given 10/19/2020 8:35 AM CDT 5,000 Units documented in this encounter Active and Recently Administered Medications Times are shown in CDT. Scheduled Medication Order 10/19/2020 10/20/2020 10/21/2020 amLODIPine (NORVASC) tablet 10 mg 10 mg, Oral, Daily, First dose on Sun10/18/20 at 0900, Until Discontinued 0835 (Given - Provider: Sophy Fairchild RN) 0852 (Given - Provider: Carolina Riddle RN-DA) 0929 (Given - Provider: Venice Wang RN) aspirin EC (ECOTRIN) tablet 81 mg 81 mg, Oral, Daily, First dose on Sun10/18/20 at 0900, Until Discontinued, Do not break, chew, or crush. 0835 (Given - Provider: Sophy Fair[place] RN) 0851 (Given - Provider: Carolina Riddle RN-DA) 0927 (Given - Provider: Venice Wang RN) cefTRIAXone (ROCEPHIN) 1 g in sodium chloride 0.9 % 50 mL IVPB 1 g, Intravenous, at 100 mL/hr, Every 24 hours, First dose on Sun10/18/20 at 0445, Until Discontinued 0358 (New Bag - Provider: Rosemary Nagel RN)0425 (Infusion Stop Time - Provider: Rosemary Nagel RN) 0440 (New Bag - Provider: Aleshia Coon RN)0510 (Infusion Stop Time - Provider: Aleshia Coon RN) 0448 (New Bag - Provider: Aleshia Coon RN)0520 (Infusion Stop Time - Provider: Aleshia Coon RN) enoxaparin (LOVENOX) 30 MG/0.3ML syringe 30 mg 30 mg, Subcutaneous, Nightly (enoxaparin), First dose on Sun10/18/20 at 2100, Until Discontinued, Dose has been adjusted from 40mg to 30mg for CrCl of 22.2ml/min Administer by deep SubQ injection alternating between the left or right anterolateral and left or right posterolateral abdominal wall. 2032 (Given - Provider: Aleshia Coon RN) 2107 (Given - Provider: Aleshia Coon RN) gabapentin (NEURONTIN) capsule 600 mg 600 mg, Oral, 3 times daily, First dose on Sun10/18/20 at 0900, Until Discontinued 0835 (Given - Provider: Sophy Fair[place] RN)1708 (Given - Provider: Sophy Fairchild RN)2032 (Given - Provider: Aleshia Coon RN) 0851 (Given - Provider: Carolina Riddle RN-DA)1552 (Given - Provider: Cici Zhao RN)210 (Given - Provider: Aleshia Coon RN) 0928 (Given - Provider: Venice Wang RN)1600 (Canceled Entry - Provider: Automatic Discharge Provider - Comment: Automatically canceled at discontinue of medication order) guaiFENesin ER (MUCINEX) 12 hr tablet 600 mg 600 mg, Oral, 2 times daily, First dose on Sun10/21/20 at 0900, Until Discontinued, Do not break, chew, or crush. 0929 (Given - Provider: Venice Wang RN) metoprolol succinate ER (TOPROL-XL) 24 hr tablet 50 mg 50 mg, Oral, Daily, First dose on Sun10/18/20 at 0900, Until Discontinued, May be split in half along the tablet score line; do not chew or crush. 0835 (Given - Provider: Sophy [place] RN) 0851 (Given - Provider: Carolina Riddle RN-) 0928 (Given - Provider: Venice Wang RN) vitamin D3 (cholecalciferol) tablet 5,000 Units 5,000 Units, Oral, Daily, First dose on Sun10/18/20 at 0900, Until Discontinued, 1000 units = 25 mcg 0835 (Given - Provider: Sophy Fairchild RN) 0850 (Given - Provider: Carolina Riddle RN-DA) 0928 (Given - Provider: Venice Wang RN) Continuous Medication Order 10/19/2020 10/20/2020 10/21/2020 sodium chloride 0.9% infusion at 100 mL/hr, Intravenous, Continuous, Starting on Sun10/19/20 at 1915, Until Sun10/21/20 at 1601 1941 (New Bag - Provider: Aleshia Coon RN) 0548 (Infusion Stop Time - Provider: Aleshia Coon RN)0549 (New Bag - Provider: Aleshia Coon RN)1552 (New Bag - Provider: Cici Zhao RN) 0202 (Infusion Stop Time - Provider: Aleshia Coon RN)0203 (New Bag - Provider: Aleshia Coon RN) PRN Medication Order 10/19/2020 10/20/2020 10/21/2020 acetaminophen (TYLENOL) tablet 650 mg 650 mg, Oral, Every 6 hours PRN, Mild pain (Scale 1 - 3), Starting on Sun10/18/20 at 2049, Until Sun10/21/20 at 1601, Maximum dose of acetaminophen is 4000 mg from all sources in 24 hours. 0849 (Given - Provider: Sophy Fairchild RN) documented in this encounter Additional Health Concerns Infection Onset Date Last Indicated Resolved Time COVID-19 Rule Out 10/20/2020 10/20/2020 10/20/2020 11:36 AM CDT COVID-19 Rule Out 10/20/2020 10/20/2020 10/20/2020 12:26 PM CDT documented as of this encounter Care Teams Scuba Instructor Relationship Specialty Start Date End Date Jasson Valdivia MD [address] [place] [phone] PCP - General FAMILY PRACTICE 11/03/18 Huber Milligan MD [address] [place] [phone] Consulting Physician Vascular Neurology 04/30/19 Norm Hopkins MD [address] [place] [phone] Consulting Physician CLINICAL CARDIAC ELECTROPHYSIOLOGY 04/30/19 documented as of this encounter
--- OUTSIDE RECORDS SUMMARY | 2024-03-19 18:39 | XMS_ITS | Encounter Summary ---
Author Organization [facility] Address [address] [place] [address]. [place], [place] [id number] [place] [id number] Care Team Providers Care Community Health Advocate Name Role Phone Jasson Cueva MD Primary Care Provider [phone] Hubre Milligan MD Unavailable [phone] Norm Hopkins MD Unavailable [phone] Encounter Details Date Type Department Care Team (Latest Contact Info) Description 10/18/2020 Travel Social History Tobacco Use Types Packs/Day Years Used Date Smoking Tobacco: Former Cigarettes Smokeless Tobacco: Never Alcohol Use Standard Drinks/Week Comments Not Currently 0 (1 standard drink = 0.6 oz pur e alcohol) Comments No Sex and Gender Information Value Date Recorded Sex Assigned at Not on file 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 Unable to assess 10/18/2020 4:17 AM CDT documented as of this encounter Functional Status * Question Answer Date of Assessment Author Status Do you have serious difficulty walking or climbing stairs? Yes 10/18/2020 4:26 AM CDT Holly Martin RN Act celia * Question Answer Date of Assessment Author Status Do you have difficulty dressing or bathing? No 10/18/2020 4:26 AM CDT Holly Martin RN Active Because of a physical, mental, or emotional condition, do you have difficulty doing errands alone such as visiting a doctor's office or shopping? Yes 10/18/2020 4:26 AM Holly Perkins RN Acti ve * RETIRED Are you deaf or do you have serious difficulty hearing Answer Date of Assessment Author Status Yes 10/18/2020 4:26 AM JULYT Activ e * RETIRED Are you blind or do you have serious difficulty seeing, even when wearing glasses? Answer Date of Assessment Author Status No 10/18/2020 4:26 AM JULYT Activ e * Do you have serious difficulty walking or climbing stairs? Answer Date of Assessment Author Status Yes 10/18/2020 4:26 AM Holly Perkins RN Active * Do you have difficulty dressing or bathing? Answer Date of Assessment Author Status No 10/18/2020 4:26 AM Holly Perkins RN Active * Because of a physical, mental, or emotional condition, do you have difficulty doing errands alone such as visiting a doctor's office or shopping? Answer Date of Assessment Author Status Yes 10/18/2020 4:26 AM Holly Perkins RN Active documented as of this encounter Mental Status * Question Answer Entry Date Author Status Because of a physical, mental, or emotional condition, do you have serious difficulty concentrating, remembering, or making decisions? Yes 10/18/2020 4:26 AM Holly Perkins RN Active * Because of a physical, mental, or emotional condition, do you have serious difficulty concentrating, remembering, or making decisions? Answer Entry Date Author Status Yes 10/18/2020 4:26 AM Holly Perkins RN Active documented in this encounter Plan of Treatment Not on file documented as of this encounter Visit Diagnoses Not on filedocumented in this encounter Care Teams Community Health Advocate Relationship Specialty Start Date End Date Jasson Cueva MD [address] [place] [phone] PCP - General FAMILY PRACTICE 11/03/18 Huber Milligan MD [address] [place] [phone] Consulting Physician Vascular Neurology 04/30/19 Norm Hopkins MD [address] [place] [address] Consulting Physician CLINICAL CARDIAC ELECTROPHYSIOLOGY 04/30/19 documented as of this encounter
--- OUTSIDE RECORDS SUMMARY | 2024-03-19 18:39 | XMS_ITS | Encounter Summary ---
Author Organization [facility] Address [address] [place] [address]. [place], [place] [id number] [place] [address] Care Team Providers Care Union Laborer Name Role Phone Jasson Valdivia MD Primary Care Provider [phone] Huber Milligan MD Unavailable [phone] Norm Hopkins MD Unavailable [phone] Reason for Referral * (Routine) - Canceled Specialty Diagnoses / Procedures Referred By Contac t Referred To Contact Procedures OT Eval and Treat Sanna Felder ANP-BC [address] [place] [address] Phone: tel: fax: Referral ID Status Reason Start Date Expiration Date V isits Requested Visits Authorized [id number] Canceled 04/11/2021 05/12/2022 1 1 ARGE SUPERVISOR * (Routine) - Canceled Specialty Diagnoses / Procedures Referred By Contac t Referred To Contact Procedures PT Eval and Treat Sanna Felder ANP-BC [address] [place] [address] Phone: tel: fax: Referral ID Status Reason Start Date Expiration Date V isits Requested Visits Authorized [id number] Canceled 04/11/2021 05/12/2022 1 1 ARGE SUPERVISOR * Imaging (Emergency) - Closed Specialty Diagnoses / Procedures Referred By Jayce coronado Referred To Contact RADIOLOGY Procedures CT HEAD WO CON Kayden Camarena MD [address] [place] [address] Phone: tel: fax: Referral ID Status Reason Start Date Expiration Date Visits Re quested Visits Authorized [id number] Closed 04/10/2021 05/11/2022 1 1 ARGE SUPERVISOR Reason for Visit * Reason Comments Altered Mental Status Weakness * Auth/Cert Specialty Diagnoses / Procedures Referred By Jayce coronado Referred To Contact Diagnoses Hypernatremia UTI (urinary tract infection) Acute renal failure (ARF) (CMS/HCC) Acute renal failure (ARF) (CMS/HCC) Referral ID Status Reason Start Date Expiration Date Visits Re quested Visits Authorized [id number] 1 1 Encounter Details Date Type Department Care Team (Late st Contact Info) Description 04/10/2021 1:23 PM LITHARGE SUPERVISOR - 04/13/2021 2:59 PM LITHARGE SUPERVISOR Hospital Encounter [facility] [address] [place] [address] Kayden Camarena MD [address] [place] [address] Jasson Valdivia MD [address] [place] [phone] Nick Mathew MD [address] [place] [address] Altered Mental Status; Weakness Discharge Disposition: Home or Self Care (Routine Discharge) Social History Tobacco Use Types Packs/Day Years Used Date Smoking Tobacco: Former Cigarettes Smokeless Tobacco: Never Alcohol Use Standard Drinks/Week Comments Not Currently 0 (1 standard drink = 0.6 oz pur e alcohol) Comments No Sex and Gender Information Value Date Recorded Sex Assigned at Not on file Legal 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 LITHARGE SUPERVISOR Gender Identity Not on file Sexual Orientation Not on file COVID-19 Exposure Response Date Recorded In the last month, have you been in contact with someone who was confirmed or suspected to have Coronavirus / COVID-19? No / Unsure 04/10/2021 12:53 PM LITHARGE SUPERVISOR documented as of this encounter Last Filed Vital Signs Vital Sign Reading Time Taken Comments Blood Pressure 130/74 04/13/2021 1:00 PM LITHARGE SUPERVISOR Pulse 70 04/13/2021 1:00 PM LITHARGE SUPERVISOR Temperature 37.1 ??C (98.8 ??F) 04/13/2021 1:00 PM CS T Respiratory Rate 20 04/13/2021 1:00 PM LITHARGE SUPERVISOR Oxygen Saturation 96% 04/13/2021 1:00 PM LITHARGE SUPERVISOR Inhaled Oxygen Concentration - - Weight 76.7 kg (169 lb 3.2 oz) 04/13/2021 4:27 A M LITHARGE SUPERVISOR Height 170.2 cm (5' 7 ) 04/10/2021 6:22 PM LITHARGE SUPERVISOR Body Mass Index 26.5 04/10/2021 6:22 PM LITHARGE SUPERVISOR documented in this encounter Functional Status * Question Answer Date of Assessment Author Status Do you have serious difficulty walking or climbing stairs? No 04/10/2021 6:08 PM Olivia Watson RN Acti ve * Question Answer Date of Assessment Author Status Do you have difficulty dressing or bathing? No 04/10/2021 6:08 PM Olivia Watson RN Active Because of a physical, mental, or emotional condition, do you have difficulty doing errands alone such as visiting a doctor's office or shopping? Yes 04/10/2021 6:08 PM Yessica Watson RN Active * RETIRED Are you deaf or do you have serious difficulty hearing Answer Date of Assessment Author Status No 04/10/2021 6:08 PM LITHARGE SUPERVISOR Activ e * RETIRED Are you blind or do you have serious difficulty seeing, even when wearing glasses? Answer Date of Assessment Author Status No 04/10/2021 6:08 PM LITHARGE SUPERVISOR Activ e * Do you have serious difficulty walking or climbing stairs? Answer Date of Assessment Author Status No 04/10/2021 6:08 PM LITHARGE SUPERVISOR Olivia Kaba R N Active * Do you have difficulty dressing or bathing? Answer Date of Assessment Author Status No 04/10/2021 6:08 PM LITHARGE SUPERVISOR Olivia Kaba R N Active * Because of a physical, mental, or emotional condition, do you have difficulty doing errands alone such as visiting a doctor's office or shopping? Answer Date of Assessment Author Status Yes 04/10/2021 6:08 PM LITHARGE SUPERVISOR Olivia Kaba R N Active documented as of this encounter Mental Status * Question Answer Entry Date Author Status Because of a physical, mental, or emotional condition, do you have serious difficulty concentrating, remembering, or making decisions? Yes 04/10/2021 6:08 PM LITHARGE SUPERVISOR Olivia Kaba RN Active * Because of a physical, mental, or emotional condition, do you have serious difficulty concentrating, remembering, or making decisions? Answer Entry Date Author Status Yes 04/10/2021 6:08 PM Olivia Watson R N Active documented in this encounter Discharge Summaries * REYMUNDO Santana - 04/13/2021 12:50 PM CST Images from the original note were not included. Hospital Discharge Summary Trisha Waite female 1950 Admit Date: 04/10/2021 1:23 PM Discharge date: 04/13/21 Admitting Physician: Nick Mathew MD Primary Care Physician: JASSON VALDIVIA MD Discharge Physician: JASSON VALDIVIA MD / REYMUNDO SANTANA Admission Diagnosis: Hypernatremia [E87.0] UTI (urinary tract infection) [N39.0] Acute renal failure (ARF) (CMS/HCC) [N17.9] Discharge Diagnosis: Principal Problem: Acute renal failure superimposed on stage 3 chronic kidney disease (CMS/HCC) Active Problems: Urinary tract infection Primary hypertension Citrobacter infection Resolved Problems: Hypernatremia Admission Condition: Stable Discharged Condition: Stable Code Status: Full Code Hospital Course: Trisha Waite is a 70-year-old female history of CKD3, COPD, hypertension, hyperlipidemia, recurrent UTIs who presented to the ER with complaints of increasing confusion. Patient was found to be in acute renal failure secondary to urinary tract infection with admission creatinine of 4.4, her baseline creatinine is approximately 2-2.5. She was also noted to be hyponatremic. Patient's renal failure improved with creatinine 2.8 at discharge with IV fluids. White count improved from [place] what WBC 23-9.7, patient was treated with ceftriaxone IV. Urine Cx grew Citrobacteri Freundili, which was susceptible to cephalosporins. Due to renal function renal dosing was adjusted. Patient discharged home on Keflex 250 mg p.o. twice daily x7 days. Patient was stable at discharge. Follow-up with primary care provider JASSON VALDIVIA MD Consults: none Imaging Studies: XR CHEST PA+LAT Narrative: Examination: Chest 2 View History: Altered mental status DATE/TIME: 04/10/2021 3:33 PM Comparison: 01/12/2021 Technique: PA and lateral views were obtained. Findings: Heart size, mediastinal contours and pulmonary vasculature are within normal limits. Implantable loop recorder device in the anterior chest. No pulmonary consolidation, pleural effusion or pneumothorax. Old right rib fractures. Right glenohumeral arthroplasty hardware partly included. Impression: Impression: No acute chest findings. Referred By: Interpreted By: Marco A Marshall MD, 04/10/2021 3:[address] HEAD WO CON Narrative: Examination: CT of the head without contrast. Exam time: 1428 hours. Clinical history: Alteration of consciousness. Confusion. Comparison: 10/17/2020. Technique: Noncontrast axial scans from skull base to vertex. A dose lowering technique was used for this procedure, which may include, but is not limited to, dose reduction techniques, automated exposure control, the use of iterative reconstruction and ALARA/Image Gently techniques. Findings: There is prominence of the ventricles, fissures and sulci, greater than anticipated for age, compatible with moderate diffuse cortical atrophy. This is unchanged. No shift of midline or mass effect is noted. Asymmetric basal ganglia calcification is again noted and may be physiologic. There is stable periventricular decreased attenuation, compatible with small vessel disease. There is stable focal hypodensity in the thalamus on the right, compatible with chronic lacunar infarct. No new areas of abnormal x-ray attenuation are identified. In particular, there is no mass, hemorrhage orsign of acute stroke. No extracerebral fluid collections. The mastoid air cells and visualized paran christine sinuses appear clear. Impression: IMPRESSION: 1. No acute intracranial process identified. 2. Stable cortical atrophy, small vessel disease and chronic lacunar infarct as described. Referred By: Interpreted By: Jacky Saul MD, 04/10/2021 2:32 PM Recent Labs Lab 04/11/21 0625 04/12/21 0506 04/13/21 0506 NA 147* 145 145 K 3.7 3.5 4.0 CL 113* 111* 112* CR 4.02* 3.30* 2.84* BUN 77* 68* 53* GFR 12* 16* 19* GLU 136* 110* 102* CA 8.2* 7.9* 8.5 Recent Labs Lab 04/11/21 0604/12/21 0506 04/13/21 0506 WBC 13.7* 9.7 8.9 HGB 13.5 13.0 14.4 HCT 42.6 41.7 45.8 MCV 94.9 96.3 96.2 PLT 209 196 220 RBC 4.49 4.33 4.76 No results for input(s): INR in the last 168 hours. No results for input(s): TROP, TROPIWB in the last 168 hours. Recent Labs Lab 04/10/21 1438 LACTICACID 2.0 No results for input(s): BNP in the last 168 hours. Microbiology Results (last 14 days) Procedure Component Value Units Date/Time CULTURE, BACTERIA, BLOOD [[id number]] Collected: 04/10/21 1515 Order Status: Completed Lab Status: Preliminary result Updated: 04/13/21 1229 Specimen: BLOOD Spec. Description BLOOD Special Requests: NO SPECIAL REQUEST Culture Result: NO GROWTH 3 DAYS CULTURE, BACTERIA, BLOOD [[id number]] Collected: 04/10/21 1510 Order Status: Completed Lab Status: Preliminary result Updated: 04/13/21 1229 Specimen: BLOOD Spec. Description BLOOD Special Requests: NO SPECIAL REQUEST Culture Result: NO GROWTH 3 DAYS CULTURE URINE [[id number]] (Susceptibility) Collected: 04/10/21 1454 Order Status: Completed Lab Status: Preliminary result Updated: 04/12/21 1359 Specimen: URINE, STRAIGHT CATH Spec. Description URINE STRAIGHT CATH Special Requests: NO SPECIAL REQUEST Culture Result: -- EQUAL OR >100,000 CFU/mL CITROBACTER FREUNDII SENSITIVITY TO FOLLOW Susceptibility Citrobacter freundii HOLLY (VITEK) (Preliminary) HOLLY (KB) (Preliminary) AMOXICILLIN/CLAVULANIC A Resistant AZTREONAM Sensitive CEFAZOLIN TO FOLLOW CEFEPIME Sensitive CEFTRIAXONE Sensitive CIPROFLOXACIN Sensitive ERTAPENEM Sensitive GENTAMICIN Sensitive IMIPENEM Sensitive LEVOFLOXACIN Sensitive MEROPENEM Sensitive NITROFURANTOIN Sensitive PIPRACIL/TAZO Sensitive TETRACYCLINE Sensitive TRIMETH-SULFAMETH. Sensitive Linear View Discharge Exam: Physical Exam Vitals and nursing note reviewed. Constitutional: Appearance: Normal appearance. She is well-developed. Eyes: Pupils: Pupils are equal, round, and reactive to light. Neck: Thyroid: No thyromegaly. Vascular: No JVD. Trachea: No tracheal deviation. Cardiovascular: Rate and Rhythm: Normal rate and regular rhythm. Pulmonary: Effort: Pulmonary effort is normal. Breath sounds: Normal breath sounds. Abdominal: General: Bowel sounds are normal. Palpations: Abdomen is soft. Musculoskeletal: General: No tenderness. Normal range of motion. Cervical back: Normal range of motion and neck supple. Skin: General: Skin is warm and dry. Neurological: General: No focal deficit present. Mental Status: She is alert and oriented to person, place, and time. Psychiatric: Mood and Affect: Mood normal. Behavior: Behavior normal. Thought Content: Thought content normal. Judgment: Judgment normal. Filed Vitals: 04/12/21 1300 04/12/21 1939 04/13/21 0427 04/13/21 0700 BP: 106/79 147/82 (!) 150/73 145/84 Pulse: 112 65 74 65 Resp: 20 20 Temp: 98.5 ??F (36.9 ??C) 98 ??F (36.7 ??C) 98.9 ??F (37.2 ??C) TempSrc: Tympanic Tympanic Tympanic SpO2: 97% 99% 97% Weight: 76.7 kg (169 lb 3.2 oz) Height: Discharge Medications: Medication List START taking these medications Morning Afternoon Evening Bedtime As Needed cephALEXin 250 MG capsule Commonly known as: KEFLEX Take 1 capsule (250 mg total) by mouth 2 (two) times daily for 7 days. CONTINUE taking these medications Morning Afternoon Evening Bedtime As Needed albuterol 0.63 MG/3ML nebulizer solution Commonly known as: ACCUNEB Take 1 ampule by nebulization every 6 (six) hours as needed for Wheezing. amLODIPine 5 MG tablet Commonly known as: NORVASC 5 mg daily. Last time this was given: 5 mg on April 13, 2021 8:19 AM aspirin EC 81 MG tablet Commonly known as: ECOTRIN Take 81 mg by mouth daily. Last time this was given: 81 mg on April 13, 2021 8:19 AM furosemide 20 MG tablet Commonly known as: LASIX 20 mg. Take Sunday and sunday gabapentin 600 MG tablet Commonly known as: NEURONTIN TAKE ONE TABLET BY MOUTH THREE TIMES DAILY. metoprolol succinate ER 50 MG 24 hr tablet Commonly known as: TOPROL-XL Take 50 mg by mouth daily. Last time this was given: 50 mg on April 13, 2021 8:19 AM vitamin D3 (cholecalciferol) 5000 UNITS capsule Take 1 capsule by mouth daily. Disposition: discharged to home Durable medical equipment needed: none Patient Instructions: Activity: activity as tolerated Diet: Diet general Appropriate Wound care: none needed Signed REYMUNDO SANTANA Cosigned by Jasson Valdivia MD at 04/25/2021 9:26 AM LITHARGE SUPERVISOR ARGE SUPERVISOR ARGE SUPERVISOR documented in this encounter Discharge Instructions * Attachments The following attachments cannot be sent through Care Everywhere. * Acute Kidney Injury Discharge Instructions (Sudanese) documented in this encounter Medications at Time of Discharge amLODIPine 5 MG tablet 1 tablet (5 mg total) daily. 12/21/2020 aspirin EC 81 MG tablet Take 1 tablet (81 mg total) by mouth daily. vitamin D3, cholecalciferol, 5000 UNITS capsule Take 1 capsule (125 mcg total) by mouth daily. albuterol 0.63 MG/3ML nebulizer solution Take 1 ampule by nebulization every 6 (six) hours as needed for Wheezing. 2 cephALEXin 250 MG capsule Take 1 capsule (250 mg total) by mouth 2 (two) times daily for 7 days. 14 capsule 04/13/2021 2 furosemide 20 MG tablet 20 mg. Take Sunday and sunday01/10/2021 2 GABAPENTIN 600 MG tabletIndication s:Neuropathic pain TAKE ONE TABLET BY MOUTH THREE TIMES DAILY. 90 tablet 3 03/16/2021 2 metoprolol succinate ER 50 MG 24 hr tablet Take 1 tablet (50 mg total) by mouth daily. 2 11/08/2018 3 documented as of this encounter Progress Notes * Sara Lopez RN - 04/13/2021 1:40 PM CST Patient discharging today. [facility] Will fax patient's H&P and d/c orders. ARGE SUPERVISOR * Destini Khan - 04/13/2021 12:58 PM CST 04/13/2021 at 1240 The Important Message from Medicare form was reviewed??with patient and/or patient???s sales representative advertising??by??Flores Garcia.?The form was initialed by patient and/or patient???s sales representative advertising as having been received and understood.?A copy of the form was left with patient and a copy of the form ??was scanned into the patient's record.?? ARGE SUPERVISOR * Clementina Villanueva RN - 04/13/2021 12:57 PM CST Dc today ARGE SUPERVISOR * Soraya Mccarthy RN - 04/12/2021 9:43 PM CST Problem: Pain Goal: Patient's pain/discomfort is manageable [...] plans and interventions as needed. Outcome: Progressing Problem: Reduced risk for falls/injury Goal: Reduced Risk for Falls/Injury Outcome: Progressing Goal: Reduced Risk of Confusion (Acute vs Chronic) Outcome: Progressing Goal: Reduced Risk of Symptomatic Depression Outcome: Progressing Goal: Reduced Risk of Altered Elimination Outcome: Progressing Goal: Reduced Risk of Dizziness/Vertigo/Balance Outcome: Progressing Goal: Reduced Risk of Polypharmacy Outcome: Progressing Problem: Balance Goal: STG - Pt to demonstrate static standing balance Description: Of normal, able to take balance challenges c/out LOB. Outcome: Progressing Problem: Mobility Goal: STG - Pt will ambulate Description: 150'x1 mod ind using SPC to demo home mobility ability. Outcome: Progressing Goal: STG - Pt will ascend/descend stairs Description: 2 steps SBA to safely enter/exit home at PLOF Outcome: Progressing Problem: Transfers Goal: STG - Pt will perform bed mobility Description: Independently, able to situate herself in bed as needed for comfort. Outcome: Progressing Goal: STG - Pt will perform sit to stand Description: Independently. Outcome: Progressing Goal: STG - Pt will perform stand pivot transfer Description: Independently Outcome: Progressing Problem: Toileting Goal: STG - Pt will complete 3/3 toilet tasks (clothing up, clothing down, hygiene) with Outcome: Progressing Problem: Transfers Goal: STG - Pt will perform a toilet transfer with Outcome: Progressing ARGE SUPERVISOR * REYMUNDO Santana - 04/12/2021 2:32 PM CST Images from the original note were not included. DAILY PROGRESS NOTE PATIENT: Trisha Waite is a 70-year-old female : 1950 ADMISSION DATE: 04/10/2021 LOS: 2 days SUBJECTIVE Trisha Waite reports she is feeling better today. Denies SOB or CP ASSESSMENT/PLAN #Acute renal failure on CKD3 ?? Admission Cr 4.48/BUN84 ?? Cr 4.52-> 4.0-> 3.3 today ?? D5 0.45NS @ 110 ml/hr #Citrobacteri Freundili UTI ?? WBC 23.2->13.7-> 9.7 today ?? Resulted on Urine Cx, susceptible to Ceftriaxone which was started 04/11 ?? Ceftriaxone 1 gm IV every 24 hours, Day 2 General Medical Code Status: Full Code VS routine Monitor IO Daily weight PT/OT VTE ppx: Lovenox and SCD Bowel: SennaKot-S Principal Problem: Acute renal failure superimposed on stage 3 chronic kidney disease (CMS/HCC) Active Problems: Urinary tract infection Primary hypertension Citrobacter infection Resolved Problems: Hypernatremia OBJECTIVE Vital signs in the last 24 hours: Patient Vitals for the past 24 hrs: BP Temp Temp src Pulse Resp SpO2 Weight 04/12/21 1300 106/79 98.5 ??F (36.9 ??C) Tympanic 112 -- 97 % -- 04/12/21 0400 129/66 98.1 ??F (36.7 ??C) Tympanic 66 20 98 % 75.8 kg (167 lb 3.2 oz) 04/11/212017 132/75 98.3 ??F (36.8 ??C) Tympanic 70 20 96 % -- MAP 24H CALCULATED (mmHg): 90 Temp (24hrs), Av.3 ??F (36.8 ??C), Min:98.1 ??F (36.7 ??C), Max:98.5 ??F (36.9 ??C) Intake/Output Summary (Last 24 hours) at 04/12/2021 1432 Last data filed at 04/12/2021 1307 Gross per 24 hour Intake 2870 ml Output -- Net 2870 ml Today's Weight: Last Recorded Weight 04/12/21 0400 Weight: 75.8 kg (167 lb 3.2 oz) Weight change in the last 24 hours: an appropriate measurement is not found Scheduled Medications: ??? amLODIPine 5 mg Oral Daily ??? aspirin EC 81 mg Oral Daily ??? cefTRIAXone 1 g Intravenous Q24H ??? enoxaparin 40 mg Subcutaneous Nightly (enoxaparin) ??? metoprolol succinate ER 50 mg Oral Daily PRN Medications: acetaminophen, albuterol, ondansetron Active Infusions: ??? dextrose 5 %-sodium chloride 0.45 % 110 mL/hr at 04/12/21 0947 Physical Exam Vitals and nursing note reviewed. Constitutional: Appearance: Normal appearance. She is well-developed. Eyes: Pupils: Pupils are equal, round, and reactive to light. Neck: Thyroid: No thyromegaly. Vascular: No JVD. Trachea: No tracheal deviation. Cardiovascular: Rate and Rhythm: Normal rate and regular rhythm. Pulmonary: Effort: Pulmonary effort is normal. Breath sounds: Normal breath sounds. Abdominal: General: Bowel sounds are normal. Palpations: Abdomen is soft. Musculoskeletal: General: No tenderness. Normal range of motion. Cervical back: Normal range of motion and neck supple. Skin: General: Skin is warm and dry. Neurological: General: No focal deficit present. Mental Status: She is alert and oriented to person, place, and time. Psychiatric: Mood and Affect: Mood normal. Behavior: Behavior normal. Thought Content: Thought content normal. Judgment: Judgment normal. Labs and Cultures: Recent Labs Lab 04/10/21 1438 04/11/21 0625 04/12/21 0506 WBC 23.2* 13.7* 9.7 HGB 16.7* 13.5 13.0 HCT 53.6* 42.6 41.7 MCV 96.6 94.9 96.3 PLT 301 209 196 RBC 5.55* 4.49 4.33 Recent Labs Lab 04/10/21 1803 04/11/21 0625 04/12/21 0506 NA 155* 147* 145 K 4.0 3.7 3.5 CL 117* 113* 111* CR 4.52* 4.02* 3.30* BUN 86* 77* 68* GFR 11* 12* 16* GLU 130* 136* 110* CA 9.3 8.2* 7.9* No results for input(s): TROP, TROPIWB in the last 168 hours. Recent Labs Lab 04/10/21 1438 LACTICACID 2.0 No results for input(s): BNP in the last 168 hours. No results for input(s): INR in the last 168 hours. Microbiology Results (last 14 days) Procedure Component Value Units Date/Time CULTURE, BACTERIA, BLOOD [[id number]] Collected: 04/10/21 1515 Order Status: Completed Lab Status: Preliminary result Updated: 04/11/21 1140 Specimen: BLOOD Spec. Description BLOOD Special Requests: NO SPECIAL REQUEST Culture Result: NO GROWTH 1 DAY CULTURE, BACTERIA, BLOOD [[id number]] Collected: 04/10/21 1510 Order Status: Completed Lab Status: Preliminary result Updated: 04/11/21 1140 Specimen: BLOOD Spec. Description BLOOD Special Requests: NO SPECIAL REQUEST Culture Result: NO GROWTH 1 DAY CULTURE URINE [[id number]] (Susceptibility) Collected: 04/10/21 1454 Order Status: Completed Lab Status: Preliminary result Updated: 04/12/21 1359 Specimen: URINE, STRAIGHT CATH Spec. Description URINE STRAIGHT CATH Special Requests: NO SPECIAL REQUEST Culture Result: -- EQUAL OR >100,000 CFU/mL CITROBACTER FREUNDII SENSITIVITY TO FOLLOW Susceptibility Citrobacter freundii HOLLY (VITEK) (Preliminary) HOLLY (KB) (Preliminary) AMOXICILLIN/CLAVULANIC A Resistant AZTREONAM Sensitive CEFAZOLIN TO FOLLOW CEFEPIME Sensitive CEFTRIAXONE Sensitive CIPROFLOXACIN Sensitive ERTAPENEM Sensitive GENTAMICIN Sensitive IMIPENEM Sensitive LEVOFLOXACIN Sensitive MEROPENEM Sensitive NITROFURANTOIN Sensitive PIPRACIL/TAZO Sensitive TETRACYCLINE Sensitive TRIMETH-SULFAMETH. Sensitive Linear View Signed REYMUNDO SANTANA 2:32 PM 04/12/2021 Cosigned by Jasson Valdivia MD at 04/25/2021 9:26 AM LITHARGE SUPERVISOR ARGE SUPERVISOR ARGE SUPERVISOR * Clementina Villanueva RN - 04/12/2021 2:01 PM CST Pt up in chair. Iv fluids continue. Short term memory issues. Fall precautions in place. ARGE SUPERVISOR * VERN Velazquez - 04/12/2021 11:58 AM CST 04/12/21907 Therapy Visit Reason for admission ARF Ordering Provider Dr Valdivia Verified Two Patient Identifiers Yes Patient consents to therapy Yes Acute Inpatient OT Time Calculation OT Start Time 907 OT Stop Time 930 OT Time Calculation (min) 23 min Subjective Subjective Pt supine in bed and agreeable to treatment. Pain Pain No Objective Objective Pt seen during skilled OT with focus on transfers,toileting,bed mobility,UB/LB dressing. ADL Bathing Assistance Stand by;Maximal Bathing Deficit Perineal area;Buttocks Bathing Comment Pt was incontinent of the bowel and required MAX assist for toño hygiene clean up. UE Dressing Assistance Stand by LE Dressing Assistance Stand by Toileting Assistance Maximal Toileting Deficit Perineal hygiene Bed Mobility Supine to Sit Modified independence Functional Transfers Sit to Stand SBA/supervision Bed to Chair SBA/supervision Toilet Transfers Modified Independent Recommendation OT Recommendation Home OT;Home with assistance OT Equipment Recommended 2 Wheeled walker Plan OT Treatment/Intervention Self-care training;Therapeutic activities;Functional activity Progress Progressing toward goals End of Session End of Session Safety Call light within reach ARGE SUPERVISOR * Taylor Rodriguez PTA - 04/12/2021 11:42 AM CST Pt showing some progression towards her therapeutic goals and would benefit from continued home health PT once discharged. ARGE SUPERVISOR * Taylor Rodriguez PTA - 04/12/2021 11:42 AM CST 04/12/21908 Therapy Visit Ordering Provider Dr. Valdivia Subjective Pt was making her way to edge of bed with MORTAR MAKER. Pt agrees to therapy and denies any pain pre treatment. Reason for admission Acute Renal Failure Verified Two Patient Identifiers Yes Patient consents to therapy Yes Acute Inpatient PT Time Calculation PT Start Time 907 PT Stop Time 930 PT Time Calculation (min) 23 min Pain Pain No Activity Tolerance Endurance Tolerates 20 - 30 min activity with rests Endurance Quality Fair Bed Mobility Supine to Sit SBA/supervision TRANSFERS Sit to Stand SBA/supervision Bed to Chair Contact guard assist Gait Gait Assistance Contact guard assist Assistive Device 2 Wheeled walker Distance Ambulated (ft) 35 ft Balance Sitting - Static Independent Sitting - Dynamic Independent Standing - Static CGA;Support of both upper extremities PT Assessment PT Assessment Pt able to ambulate to and from her restroom this morning with FWW and CGA without LOB, but patient does require cueing to stay focus and for walker management. Pt demonstrated no LOB during all sitting and standing balancing activities while bathing and donning depends with CGA/SBA assist. Pt positioned in chair with legs elevated with call light and phone within reach. Recommendation PT Recommendation Home with assistance;Home PT PT Equipment Recommended 2 Wheeled walker Plan PT Treatments/Interventions Gait Training;Therapeutic Exercises;Therapeutic Activities Progress Progressing toward goals PT Frequency Daily End of Session End of Session Safety Call light within reach;Family/friend present with patient ARGE SUPERVISOR * Rita Kline RN - 04/12/2021 12:00 AM CST Problem: Pain Goal: Patient's pain/discomfort is manageable [...] plans and interventions as needed. Outcome: Progressing Problem: Reduced risk for falls/injury Goal: Reduced Risk for Falls/Injury Outcome: Progressing Goal: Reduced Risk of Confusion (Acute vs Chronic) Outcome: Progressing Goal: Reduced Risk of Symptomatic Depression Outcome: Progressing Goal: Reduced Risk of Altered Elimination Outcome: Progressing Goal: Reduced Risk of Dizziness/Vertigo/Balance Outcome: Progressing Goal: Reduced Risk of Polypharmacy Outcome: Progressing ARGE SUPERVISOR * Sara Lopez RN - 04/11/2021 2:44 PM CSTSummary: CM Assessment Spoke with patient and her son Zack in patient's room regarding discharge planning. Patient stated she lives at home alone in a one-story house. Stated she is fairly independent at home and can manage her medications, cooking, and cleaning. Patient's son stated sometimes he helps her with her laundry. Patient stated she has a walker and cane at home. Patient is currently with [facility]. Planis for patient to discharge home. Patient's son will be able to pick and shovel worker and transport patient upon discharge. Patient denies any needs at this time from CM. CM will continue to follow. 04/11/21 9645 Referral Data Referral Reason Discharge Planning Source of Information Patient Patient Information OB Patient < 19 yrs old No Primary Caregiver Self Support System Immediate family Baseline ADL's Functional Status Independent Living Arrangements Alone Type of Residence Private residence Ambulation Assistance No Active DME Walker;Cane Bathing/Grooming Assistance No Dressing Assistance No Behavior Oriented;Cooperative Communication Talks;Understands speaking;Understands Sudanese Current Services Being Provided Home Health assisted ([facility]) Socioeconomic Needs Caregiver Needed No At Risk of Abuse or Neglect No Adequate Resources Yes Psychological Needs: Mental health concerns No Suspected Drug or Alcohol Abuse No Inappropriate Patient/Family Behaviors No Difficult Adjustment to Diagnosis No Recent Hospitalization Recent Hospitalization within 30 days No Anticipated Discharge Needs Change in Living Arrangements No In-Home Care or Equipment No Vocational and/or Role Loss No Inability to Complete ADL's No Anticipated DC Plan Living Arrangements Alone Support Systems Children Type of Residence Private residence Assistance Needed No Patient expects to be discharged to: Home ARGE SUPERVISOR * Mariamjordon Stern, OT - 04/11/2021 2:20 PM CST [facility] Occupational Therapy Inpatient Evaluation Time In: 1310 Time Out: 1329 Total Evaluation Time: 19 minutes Ordering Physician: Bradford TAYLOR Patient: Trisha Waite Location: Diagnosis: Hypernatremia [E87.0] UTI (urinary tract infection) [N39.0] Acute renal failure (ARF) (CMS/HCC) [N17.9] Past Medical History: Diagnosis Date ??? CKD (chronic kidney disease) ??? COPD (chronic obstructive pulmonary disease) (CMS/HCC) ??? Depression ??? Displaced fracture of proximal end of right humerus 11/06/2018 ??? HLD (hyperlipidemia) ??? Hypertension ??? Ischemic stroke (CMS/HCC) ??? Neuropathy ??? UTI (urinary tract infection) Past Surgical History: Procedure Laterality Date ??? JOINT REPLACEMENT ??? SHOULDER SURGERY ??? TOTAL HIP ARTHROPLASTY bilateral SUBJECTIVE: Pain: Denied having any pain Pt reporting that she does not remember why she was admitted to the hospital. Son reports that pt wears briefs/depends at home and is able to change and perform perineal care independently. Prior Level of Function: ADLs: Bathing: Independent Toileting: Independent UB Dressing: Independent LB Dressing: Independent Feeding: Independent Grooming: Independent ?? IADLs: Meal Preparation: Independent Cleaning: Independent Laundry: Family Assist Working/Volunteering: No Driving: No Care of Others: No ?? Functional Mobility & Transfers: Bed Mobility: Independent Toilet Transfers: Independent Tub/Shower Transfers: Independent Patient has been completing functional mobility with single point cane. ?? Home Environment: House Levels: 1 Entrance: 2 steps Living arrangements - The patient lives alone. Son lives close by OBJECTIVE: Observation: Pt was supine in bed, son in room, upon OTR arrival. Orientation Level: x 1 to self Cognition: Follows 1 step commands 100% of the time with extended time, decrease safety awareness and insight Affect: alert and cooperative Vision: WFL Hearing: WFL Precautions/Restrictions: IV Hand Dominance: right Upper Extremity R L Coordination Intact Intact Sensation Denies any new changes Denies any new changes ROM WFL WFL Comments: Demonstrates grossly WFL with bilateral UE strength. ADLs: Feeding: [place] Toileting: Min A for anterior and posterior perineal care in standing, assist with thoroughness UB Dressing: Not Performed this Date LB Dressing: Supervision to pull up bilateral socks while seated edge of bed Grooming: Not Performed this Date Bathing: Not Performed this Date Transfers: Bed mobility/rolling: Supervision Supine <> sit: CGA Sit <> stand: CGA Stand-pivot: Not Performed this Date Toilet/chair transfer: CGA to bed Functional Mobility: CGA from bed to doorway ,and doorway and back to bed Assistive Device utilized during transfers: single point cane Activity performed this session: Evaluation only this date. Education: Pt educated about purpose and benefit of participation in occupational therapy. ASSESSMENT: Trisha Waite is a 70-year-old female who presents with a primary complaint of Hypernatremia [E87.0] UTI (urinary tract infection) [N39.0] Acute renal failure (ARF) (CMS/HCC) [N17.9]. Prior to admission, pt was independent with basic ADLsand functional mobility with a SPC. Pt is currently demonstrating decreased ability to complete ADLs and functional mobility secondary to decrease activity tolerance, strength, safety awareness . Pt will benefit from participation in skilled OT services to improve independence in ADLs and functional [...] transfer training Anticipated Discharge at this time: Home with Assist Equipment Recommendations: No new equipment at this time Safety at conclusion of Treatment: Upon OTR departure, pt supine in bed, son in room, call light within reach, and all needs met. ARGE SUPERVISOR * Germain Rutherford, PT - 04/11/2021 1:35 PM CST [facility] Physical Therapy Inpatient Evaluation Time In: 1310 Time Out: 1329 Trisha Waite 322/01 Hypernatremia [E87.0] UTI (urinary tract infection) [N39.0] Acute renal failure (ARF) ([facility]/HCC) [N17.9] Past Medical History: Diagnosis Date ??? CKD (chronic kidney disease) ??? COPD (chronic obstructive pulmonary disease) ([facility]/HCC) ??? Depression ??? Displaced fracture of proximal end of right humerus 11/06/2018 ??? HLD (hyperlipidemia) ??? Hypertension ??? Ischemic stroke (CMS/[facility]) ??? Neuropathy ??? UTI (urinary tract infection) Past Surgical History: Procedure Laterality Date ??? JOINT REPLACEMENT ??? SHOULDER SURGERY ??? TOTAL HIP ARTHROPLASTY bilateral Subjective: Orientation: x 1 to self only Pain: 0/10 Patient reports she is feeling well today, much better than yesterday, but has not been out of bed much. She feels up to trying to get out of bed and has been comfortable resting in bed. Pt and son report she is nearing back to baseline. Son reports history of B JANAE and L TKA in H. Son also reports she has HH nursing 1x/week and sometimes some sort of physical therapy every couple weeks. Son performs laundry and light cleaning. Home Environment: House, c/ 1 story Entrance: 2 steps Living arrangements - The patient lives alone c/ son and other family nearby. Patient has been ambulatory with single point cane Objective: Patient was in bed upon pt arrival. Observation: Pt resting comfortably in bed with son in room upon PT/OT arrival. Pt calm and cooperative, though a little slow with understanding of commands and command follow-through. Some slight diaper/depends rash noticed and depends changed during visit. Pt very pleasant throughout as well withno agitated confusion at all. Precautions/Restrictions: IV Transfers: Bed mobility/rolling: Supervision for cuing for hand/foot placement and where to push to make required movements. Supine to sit: CGA Sit to stand: CGA, requires large forward lean but able to control herself during evaluation Pivot: CGA, short but continuous steps. Ambulation: Pt ambulates 30'x1 using SPC and CGA from PT while OT trailed with IV pole for support.Pt demonstrates B decreased step length and clearance, which is baseline per son's report. Pt also with R lateral trunk lean, same side as SPC, from L antalgia. Some slight trunk sway but pt able to control herself throughout c/out LOB. Activity performed this session: Evaluation only this date. Assessment: Trisha Waite is a 70-year-old female who presents with a primary complaint of Hypernatremia [E87.0] UTI (urinary tract infection) [N39.0] Acute renal failure (ARF) (CMS/HCC) [N17.9]. Patient is demonstrating deficits in Balance, Cognition, Mobility and Transfers leading to decreased safety, increased fall risk and decreased independence. Skilled therapy is appropriate at this time to address these impairments and to move the patient towards their goal of returning safely to previous living situation. Recommended Interventions: Therapeutic Activity, Therapeutic Exercise, Gait Training, Self-Care Training and Balance Training Rehab Potential: Good Personal Factors/Co-Morbidities Affecting Care: 3-4+ Examination of Body Systems: Low (1-2) Clinical Presentation of Patient: Stable Uncomplicated Eval Complexity: Low PT Plan: Frequency: Daily Duration: 1 week Anticipated Discharge at this time: Home or Home with Assist Plan for next session: Bed and Bedside therapeutic exercise for endurance and strengthening, gait training for safety with AD and with turns, balance training as indicated. Safety at conclusion of Treatment: Patient in Bed, Call Light in Reach, Family in Room and all needs met per pt report. ARGE SUPERVISOR * Carolina Riddle RN - 04/10/2021 7:44 PM CST Problem: Pain Goal: Patient's pain/discomfort is manageable [...] plans and interventions as needed. Outcome: Progressing Problem: Reduced risk for falls/injury Goal: Reduced Risk for Falls/Injury Outcome: Progressing Goal: Reduced Risk of Confusion (Acute vs Chronic) Outcome: Progressing Goal: Reduced Risk of Symptomatic Depression Outcome: Progressing Goal: Reduced Risk of Altered Elimination Outcome: Progressing Goal: Reduced Risk of Dizziness/Vertigo/Balance Outcome: Progressing Goal: Reduced Risk of Polypharmacy Outcome: Progressing ARGE SUPERVISOR documented in this encounter H&P Notes * Sanna Felder, ANP-BC - 04/11/2021 12:10 PM CST Admission History and Physical History Primary Care Provider: JASSON VALDIVIA MD Admitting Provider: Nick Mathew MD Attending Provider: Jasson Valdivia MD Admission date: 04/10/2021 1:23 PM Trisha Waite is a 70-year-old female with a history of kidney disease, COPD, hypertension, hyperlipidemia, recurrent UTIs who presented to the ER with complaints of increasing confusion. Patient does not remember events yesterday. Son, Zack, is at bedside for detail. He states he called his mother on Sunday noticed increased confusion and went over to check on her yesterday and she was more confused than normal and brought her to the ER for further evaluation. Patient states she gets this way when she has a UTI and has had previous admissions for similar. She denies any urgency, frequency, or dysuria. Did note some back pain in the ER yesterday but otherwise feeling much better today. Past Medical History: Diagnosis Date ??? CKD (chronic kidney disease) ??? COPD (chronic obstructive pulmonary disease) (CMS/HCC) ??? Depression ??? Displaced fracture of proximal end of right humerus 11/06/2018 ??? HLD (hyperlipidemia) ??? Hypertension ??? Ischemic stroke (CMS/HCC) ??? Neuropathy ??? UTI (urinary tract infection) Past Surgical History: Procedure Laterality Date ??? JOINT REPLACEMENT ??? SHOULDER SURGERY ??? TOTAL HIP ARTHROPLASTY bilateral Social History Tobacco Use ??? Smoking status: Former Smoker Packs/day: 1.00 Types: Cigarettes ??? Smokeless tobacco: Never Used Vaping Use ??? Vaping Use: Never used Substance Use Topics ??? Alcohol use: Not Currently ??? Drug use: Yes Types: Marijuana Family History Problem Relation Name Age of Onset ??? Heart Attack Mother Prior to Admission medications Medication Sig Start Date End Date Taking? Authorizing Provider albuterol 0.63 MG/3ML nebulizer solution Take 1 ampule by nebulization every 6 (six) hours as needed for Wheezing. Yes Doc Abstract aspirin EC 81 MG tablet Take 81 mg by mouth daily. Yes Doc Abstract GABAPENTIN 600 MG tablet TAKE ONE TABLET BY MOUTH THREE TIMES DAILY. 03/16/21 Yes Huber Milligan MD metoprolol succinate ER 50 MG 24 hr tablet Take 50 mg by mouth daily. 11/08/18 Yes Doc Abstract vitamin D3, cholecalciferol, 5000 UNITS capsule Take 1 capsule by mouth daily. Yes Doc Abstract amLODIPine 5 MG tablet 5 mg daily. 12/21/20 Doc Abstract furosemide 20 MG tablet 20 mg. Take Sunday and sunday01/10/21 Doc Abstract ??? amLODIPine 5 mg Oral Daily ??? aspirin EC 81 mg Oral Daily ??? enoxaparin 40 mg Subcutaneous Nightly (enoxaparin) ??? metoprolol succinate ER 50 mg Oral Daily ??? dextrose 5 %-sodium chloride 0.45 % 110 mL/hr at 04/10/21 1844 acetaminophen, albuterol, ondansetron No Known Allergies ROS 10 point ROS negative except otherwise specified in HPI Physical Exam Filed Vitals: 04/10/21 1822 04/10/21 2100 04/11/21 0500 04/11/21 0911 BP: 147/86 138/76 144/79 117/80 Pulse: 112 79 75 77 Resp: 18 20 20 Temp: 96.6 ??F (35.9 ??C) 97.6 ??F (36.4 ??C) 98.2 ??F (36.8 ??C) TempSrc: Tympanic Tympanic Tympanic SpO2: 96% 96% 97% Weight: 71.8 kg (158 lb 3.2 oz) Height: 5' 7 (1.702 m) Physical Exam Vitals reviewed. Constitutional: General: She is not in acute distress. Appearance: She is well-developed. HENT: Head: Normocephalic and atraumatic. Eyes: General: Left eye: No discharge. Pupils: Pupils are equal, round, and reactive to light. Cardiovascular: Rate and Rhythm: Normal rate and regular rhythm. Pulses: Intact distal pulses. Posterior tibial pulses are 1+ on the right side and 1+ on the left side. Heart sounds: Normal heart sounds, S1 normal and S2 normal. No murmur heard. Pulmonary: Effort: Pulmonary effort is normal. No respiratory distress. Breath sounds: No wheezing. Abdominal: General: Bowel sounds are normal. Palpations: Abdomen is soft. Musculoskeletal: General: Normal range of motion. Cervical back: Normal range of motion. Comments: Right upper extremity slightly weaker than left Skin: General: Skin is warm and dry. Neurological: Mental Status: She is alert and oriented to person, place, and time. Recent Labs Lab 04/10/21 1438 04/11/21 0625 WBC 23.2* 13.7* RBC 5.55* 4.49 HGB 16.7* 13.5 HCT 53.6* 42.6 MCV 96.6 94.9 MCH 30.1 30.1 MCHC 31.2* 31.7* PLT 301 209 RDW 14.6* 14.4 MPV 11.1* 10.9* NEUC 20.11* 10.21* LYMC 0.93 2.03 MONOC 1.95* 1.25 EOSC 0.01 0.08 BASOC 0.08 0.08 Recent Labs Lab 04/10/21 1438 04/10/21 1803 04/11/21 0625 NA 156* 155* 147* K 4.2 4.0 3.7 CL 116* 117* 113* CO2 15.6* 18.2* 19.0* AGAP 24.4* 19.8* 15.0 BUN 84* 86* 77* CR 4.48* 4.52* 4.02* GFRNON 9* 9* 11* GFR 11* 11* 12* GLU 109* 130* 136* CA 9.6 9.3 8.2* TP 8.5* -- 6.2* ALB 4.2 -- 2.9* TBIL 0.8 -- 0.5 ALKP 100 -- 71 AST 30 -- 17 ALT 31 -- 19 No results for input(s): APTT, INR in the last 168 hours. Invalid input(s): PT No results for input(s): TROP, TROPIWB in the last 168 hours. Recent Labs Lab 04/11/21 0625 NA 147* K 3.7 CL 113* CO2 19.0* BUN 77* CR 4.02* CA 8.2* GLU 136* AGAP 15.0 TP 6.2* ALB 2.9* ALT 19 WBC 13.7* HGB 13.5 PLT 209 No results found for this or any previous visit. No results found for this visit on 04/10/21 (from the past 840 hour(s)). Results for orders placed or performed during the hospital encounter of 04/10/21 (from the past 840hour(s)) CULTURE, BACTERIA, BLOOD Collection Time: 04/10/21 3:15 PM Specimen: BLOOD Result Value Ref Range Spec. Description BLOOD Special Requests: NO SPECIAL REQUEST Culture Result: NO GROWTH 1 DAY CULTURE, BACTERIA, BLOOD Collection Time: 04/10/21 3:10 PM Specimen: BLOOD Result Value Ref Range Spec. Description BLOOD Special Requests: NO SPECIAL REQUEST Culture Result: NO GROWTH 1 DAY No results found. Assessment Principal Problem: Acute renal failure (ARF) ([facility]) SNOMED CT(R): ACUTE RENAL FAILURE SYNDROME Active Problems: Primary hypertension SNOMED CT(R): ESSENTIAL HYPERTENSION Hypernatremia SNOMED CT(R): HYPERNATREMIA Plan #Acute renal failure ?? Secondary to UTI and dehydration ?? sCr 4.4 in ER on admission ?? Baseline sCr 2-2.5 ?? Continue IV fluids ?? Continue to improve #Dehydration ?? Improving with IV fluids #Altered mental status ?? Likely related to UTI and hyponatremia ?? Head CT negative for any acute processes. Small vessel and chronic lacunar infarct noted ?? Discussed with son today and he felt she was improving #Hypernatremia ?? Na 156 on admission ?? Na 147 today ?? Improving ?? Continue IV fluids ?? Reassess in a.m. #UTI ?? Continue Rocephin (day 2) ?? UA abnormal, culture pending #Hypertension ?? Stable CHANDA ALCOCER-YULY Cosigned by Jasson Valdivia MD at 04/25/2021 9:26 AM LITHARGE SUPERVISOR ARGE SUPERVISOR ARGE SUPERVISOR documented in this encounter ED Notes * Christy Sweeney RN - 04/10/2021 5:50 PM CST Call to give report, will have rn call for report ARGE SUPERVISOR * Christy Sweeney RN - 04/10/2021 4:45 PM CST Tech reports iv out; unknown if pt removed or came loose with pt repositioning ARGE SUPERVISOR * Christy Sweeney RN - 04/10/2021 4:[address] camarena speaks with dr mathew, rotational moulding operator; room 322 assigned ARGE SUPERVISOR * Christy Sweeney RN - 04/10/2021 2:[address] per tech; pt assisted to hallway restroom per wc and in restroom; pt thought she urinated butdid not; return to room and assisted to stretcher; moves all extremities well, generalized weakness ARGE SUPERVISOR * Kayden Camarena MD - 04/10/2021 2:03 PM CST Chief Complaint Chief Complaint Patient presents with ??? Altered Mental Status ??? Weakness History of Present Illness This is a 70-year-old female brought by the son, with concerns of urinary tract infection. Patient states about 2 days ago he started noticing that she could sound a little bit confused when talking on the phone, and yesterday he had a relative to check up on her, and she seemed to be out of focus.He went to check up on her today, this morning, and she will look confused compared to her baseline. This time states every time she gets a urinary tract infection may have been the same, in December she was admitted for the same. The patient does have a history of stroke in the past, and has causeddecreased sensation on the right side of the body. The patient is ambulatory without a walker, occasionally uses a cane. In the emergency room the patient is alert and oriented x1, to her name, she states she knows her date of but she could not recall it, she was asked where she was, and she is states that initially [place] then she said no, and then she says, I do not know. The son states she does have some periods of confusion but not this long. In December 2020, the patient was transferred to [facility] quick she had a cardiac stress test that was negative. Medical History ALLERGIES: No Known Allergies MEDICATIONS: Prior to Admission medications Medication Sig Start Date End Date Taking? Authorizing Provider albuterol 0.63 MG/3ML nebulizer solution Take 1 ampule by nebulization every 6 (six) hours as needed for Wheezing. Yes Doc Abstract amLODIPine 5 MG tablet 12/21/20 Doc Abstract aspirin EC 81 MG tablet Take 81 mg by mouth daily. Doc Abstract furosemide 20 MG tablet 01/10/21 Doc Abstract GABAPENTIN 600 MG tablet TAKE ONE TABLET BY MOUTH THREE TIMES DAILY. 03/16/21 Huber Milligan MD meloxicam 15 MG tablet 03/25/20 Doc Abstract metoprolol succinate ER 50 MG 24 hr tablet Take 50 mg by mouth daily. 11/08/18 Doc Abstract vitamin D3, cholecalciferol, 5000 UNITS capsule Take 1 capsule by mouth daily. Doc Abstract PAST MEDICAL HISTORY: Past Medical History: Diagnosis Date ??? CKD (chronic kidney disease) ??? COPD (chronic obstructive pulmonary disease) (CMS/HCC) ??? Depression ??? Displaced fracture of proximal end of right humerus 11/06/2018 ??? HLD (hyperlipidemia) ??? Hypertension ??? Ischemic stroke (CMS/HCC) ??? Neuropathy ??? UTI (urinary tract infection) PAST SURGICAL HISTORY: Past Surgical History: Procedure Laterality Date ??? JOINT REPLACEMENT ??? SHOULDER SURGERY ??? TOTAL HIP ARTHROPLASTY bilateral FAMILY HISTORY: Family History Problem Relation Name Age of Onset ??? Heart Attack Mother SOCIAL HISTORY: Social History Tobacco Use ??? Smoking status: Former Smoker Packs/day: 1.00 Types: Cigarettes ??? Smokeless tobacco: Never Used Vaping Use ??? Vaping Use: Never used Substance Use Topics ??? Alcohol use: Not Currently ??? Drug use: Yes Types: Marijuana Review of Systems Review of Systems All other systems reviewed and are negative. Physical Exam Filed Vitals: 04/10/21 1325 04/10/21 1336 BP: (!) 142/102 Pulse: 114 Resp: 20 Temp: 97.6 ??F (36.4 ??C) TempSrc: Temporal SpO2: 93% Weight: 73.9 kg (163 lb) Height: 5' 7 (1.702 m) Physical Exam Vitals and nursing note reviewed. HENT: Head: Normocephalic and atraumatic. Nose: Nose normal. Eyes: Pupils: Pupils are equal, round, and reactive to light. Cardiovascular: Rate and Rhythm: Normal rate and regular rhythm. Pulses: Normal pulses. Heart sounds: Normal heart sounds. Pulmonary: Effort: Pulmonary effort is normal. Abdominal: General: Abdomen is flat. Bowel sounds are normal. Palpations: Abdomen is soft. Musculoskeletal: General: Normal range of motion. Cervical back: Normal range of motion. Skin: General: Skin is warm. Neurological: General: No focal deficit present. Mental Status: She is alert. Mental status is at baseline. Diagnostic Studies / Procedures ELECTROCARDIOGRAMS: No results found for this visit on 04/10/21. LABORATORY STUDIES: Results for orders placed or performed during the hospital encounter of 04/10/21 CBC W/DIFF AUTOMATED Result Value Ref Range WBC 23.2 (H) 4.0 - 10.8 x10'3/uL RBC 5.55 (H) 4.10 - 5.40 x10'6/uL HGB 16.7 (H) 12.0 - 16.0 G/DL HCT 53.6 (H) 36.0 - 47.0 % MCV 96.6 78.0 - 100.0 FL MCH 30.1 27.0 - 31.0 PG MCHC 31.2 (L) 33.0 - 36.0 G/DL RDW 14.6 (H) 11.5 - 14.5 % PLT 301 150 - 350 x10'3/uL MPV 11.1 (H) 7.4 - 10.4 FL Differential Comment NORMAL REFERENCE RANGE NOT ESTABLISHED FOR THE PROPORTIONAL LEUKOCYTE DIFFERENTIAL. SEG NEUTROPHILS 86.8 % LYMPHOCYTES 4.0 % MONOCYTES 8.4 % EOSINOPHILS 0.0 % BASOPHILS 0.3 % IMMATURE GRANS 0.5 % NRBC 0.0 % ABS. NEUTROPHILS 20.11 (H) 1.60 - 8.30 x10'3/uL ABS. LYMPHOCYTES 0.93 0.80 - 4.70 x10'3/uL ABS. MONOCYTES 1.95 (H) 0.00 - 1.50 x10'3/uL ABS. EOSINOPHILS 0.01 0.00 - 0.40 x10'3/uL ABS. BASOPHILS 0.08 0.00 - 0.20 x10'3/uL ABS. IMMATURE GRANULOCYTES 0.11 (H) 0.00 - 0.03 x10'3/uL ABS. NUCLEATED RBC'S 0.00 0.00 x10'3/uL COMPREHENSIVE METABOLIC PANEL Result Value Ref Range SODIUM 156 (HH) 136 - 145 MMOL/L POTASSIUM 4.2 3.5 - 5.1 MMOL/L CHLORIDE S/P/B 116 (H) 98 - 107 MMOL/L CO2 15.6 (L) 21.0 - 32.0 MMOL/L GLUCOSE 109 (H) 70 - 99 MG/DL BUN 84 (H) 6 - 24 MG/DL CREATININE S/P/B 4.48 (H) 0.55 - 1.02 MG/DL CALCIUM 9.6 8.4 - 10.5 MG/DL BILIRUBIN TOTAL S/P/B 0.8 0.2 - 1.0 MG/DL ALKALINE PHOSPHATASE S/P/B 100 55 - 142 U/L AST 30 15 - 37 U/L ALT 31 14 - 59 U/L TOTAL PROTEIN S/P/B 8.5 (H) 6.4 - 8.2 G/DL ALBUMIN S/P/B 4.2 3.4 - 5.0 G/DL ANION GAP 24.4 (H) 5.0 - 15.0 MMOL/L OSMOLALITY (CALC) 348 MOSM/KG eGFR Non-Afr. Amer. 9 (L) >89 ML/MIN/1.73 M2 eGFR Afr. Amer. 11 (L) >89 ML/MIN/1.73 M2 GFR NOTES GFR REFERENCES: URINALYSIS Result Value Ref Range COLOR (U) YELLOW TRANSPARENCY SLIGHTLY CLOUDY Specific [place] (U) 1.025 1.000 - 1.025 U PH 5.5 5.0 - 8.0 LEUKOCYTE ESTERASE NEGATIVE NEGATIVE NITRITES NEGATIVE NEGATIVE PROTEIN (U) 3+ (A) NEGATIVE URINE GLUCOSE NEGATIVE NEGATIVE U KETONES 1+ (A) NEGATIVE UROBILINOGEN 0.2 <1.0 EU/DL BLOOD 2+ (A) NEGATIVE WBC/HPF 10-20 (A) 0 - 5 /HPF RBC/HPF 0-5 0 - 5 /HPF EPI/HPF OCCASIONAL /LPF BACTERIA (URINE) 3+ /HPF BILIRUBIN (U) NEGATIVE NEGATIVE LACTIC ACID - SINGLE Result Value Ref Range LACTIC ACID 2.0 0.4 - 2.0 MMOL/L IMAGING STUDIES XR CHEST PA+LAT Final Result by User, [email or web address] (04/10 0916) Examination: Chest 2 View History: Altered mental status DATE/TIME: 04/10/2021 3:33 PM Comparison: 01/12/2021 Technique: PA and lateral views were obtained. Findings: Heart size, mediastinal contours and pulmonary vasculature are within normal limits. Implantable loop recorder device in the anterior chest. No pulmonary consolidation, pleural effusion or pneumothorax. Old right rib fractures. Right glenohumeral arthroplasty hardware partly included. Impression: No acute chest findings. Referred By: Interpreted By: Marco A Marshall MD, 04/10/2021 3:[address] HEAD WO CON Final Result by User, [id number] (04/10 1442) Examination: CT of the head without contrast. Exam time: 1428 hours. Clinical history: Alteration of consciousness. Confusion. Comparison: 10/17/2020. Technique: Noncontrast axial scans from skull base to vertex. A dose lowering technique was used for this procedure, which may include, but is not limited to, dose reduction techniques, automated exposure control, the use of iterative reconstruction and ALARA/Image Gently techniques. Findings: There is prominence of the ventricles, fissures and sulci, greater than anticipated for age, compatible with moderate diffuse cortical atrophy. This is unchanged. No shift of midline or mass effect is noted. Asymmetric basal ganglia calcification is again noted and may be physiologic. There is stable periventricular decreased attenuation, compatible with small vessel disease. There is stable focal hypodensity in the thalamus on the right, compatible with chronic lacunar infarct. No new areas of abnormal x-ray attenuation are identified. In particular, there is no mass, hemorrhage or sign of acute stroke. No extracerebral fluid collections. The mastoid air cells and visualized paranasal sinuses appear clear. IMPRESSION: 1. No acute intracranial process identified. 2. Stable cortical atrophy, small vessel disease and chronic lacunar infarct as described. Referred By: Interpreted By: Jacky Saul MD, 04/10/2021 2:32 PM ED Course / Medical Decision Making MDM Number of Diagnoses or Management Options Hypernatremia UTI (urinary tract infection) Diagnosis management comments: This is a 70-year-old female who has presented to the emergency roomwith a change in mental status, negative head CT, negative chest x-ray, and found to have a sodium of 156 and signs of UTI. The patient has been indicated ceftriaxone, and D5 half-normal saline. CaseDiscussed with Dr. Matehw, who recommended treatment. The case also explained to the nurse practitioner. Clinical Impression Hypernatremia (Primary) UTI (urinary tract infection) Disposition: Admit Kayden Camarena MD 04/10/21 1546 ARGE SUPERVISOR * Obdulia Oconnor RN - 04/10/2021 1:36 PM CST Pt arrives via pov with son via wc. Pt lives home alone. Son has been trying to reach her for the past couple of days. Today son checked on her, pt was in bed. Seemed to be disoriented and weak. Pt has had uti in the past and has same symptoms, per son. Pt is alert upon arrival with some confusion. ARGE SUPERVISOR documented in this encounter Plan of Treatment Not on file documented as of this encounter Goals Goal Patient Goal Type Associated Problems Recent Progress Patient-Stated? Author Patient will return to prior living situation and remain independent in ADLs upon discharge from hospital General Sara Evans RN documented as of this encounter Procedures Procedure Name Priority Date/Time Associated Diagnosis Comments COMPREHENSIVE METABOLIC PANEL Routine 04/13/2021 5:06 AM LITHARGE SUPERVISOR CBC W/DIFF AUTOMATED Routine 04/13/2021 5:06 AM LITHARGE SUPERVISOR COMPREHENSIVE METABOLIC PANEL Routine 04/12/2021 5:06 AM LITHARGE SUPERVISOR CBC W/DIFF AUTOMATED Routine 04/12/2021 5:06 AM LITHARGE SUPERVISOR COMPREHENSIVE METABOLIC PANEL Routine 04/11/2021 6:25 AM LITHARGE SUPERVISOR CBC W/DIFF AUTOMATED Routine 04/11/2021 6:25 AM LITHARGE SUPERVISOR BASIC METABOLIC PANEL Routine 04/10/2021 6:03 PM LITHARGE SUPERVISOR XR CHEST PA+LAT STAT 04/10/2021 3:33 PM LITHARGE SUPERVISOR CULTURE, BACTERIA, BLOOD STAT 04/10/2021 3:15 PM LITHARGE SUPERVISOR CULTURE, BACTERIA, BLOOD STAT 04/10/2021 3:10 PM LITHARGE SUPERVISOR HC URINALYSIS AUTO W/MICRO STAT 04/10/2021 2:54 PM LITHARGE SUPERVISOR URINE BACTERIA CULTURE Routine 2:54 PM LITHARGE SUPERVISOR OSMOLALITY, URINE Routine 04/10/2021 2:5 4 PM LITHARGE SUPERVISOR COMPREHENSIVE METABOLIC PANEL STAT 04/10/2021 2:38 PM LITHARGE SUPERVISOR LACTIC ACID STAT 04/10/2021 2:38 PM LITHARGE SUPERVISOR CBC W/DIFF AUTOMATED STAT 04/10/2021 2:38 PM LITHARGE SUPERVISOR MAGNESIUM Routine 04/10/2021 2:[address] HEAD WO CON STAT 04/10/2021 2:24 PM LITHARGE SUPERVISOR documented in this encounter Results * (ABNORMAL) COMPREHENSIVE METABOLIC PANEL (04/13/2021 5:06 AM LITHARGE SUPERVISOR) SODIUM S/P/B 145 136 - 145 MMOL/L 04/13/2021 6:08 AM LITHARGE SUPERVISOR [facility] POTASSIUM S/P/B 4.0 3.5 - 5.1 MMOL/L 04/13/2021 6:08 AM [facility] CHLORIDE S/P/B 112(H) 98 - 107 MMOL/L 04/13/2021 6:08 AM [facility] CO2 18.4(L) 21.0 - 32.0 MMOL/L 04/13/2021 6:08 AM [facility] GLUCOSE 102(H) 70 - 99 MG/DL 04/13/2021 6:08 AM [facility] Comment: FASTING GLUCOSE 100 TO 125 MG/DL IS CONSISTENT WITH IMPAIRED FASTING GLUCOSE. FASTING GLUCOSE >125 MG/DL IS CONSISTENT WITH DIABETES. RANDOM GLUCOSE >200 MG/DL WITH HYPERGLYCEMIC SYMPTOMS IS CONSISTENT WITH DIABETES. PER ADA GUIDELINES BUN 53(H) 6 - 24 MG/DL 04/13/2021 6:08 AM [facility] CREATININE S/P/B 2.84(H) 0.55 - 1.02 MG/DL 04/13/2021 6:08 AM [facility] CALCIUM S/P/B 8.5 8.4 - 10.5 MG/DL 04/13/2021 6:08 AM [facility] BILIRUBIN TOTAL S/P/B 0.3 0.2 - 1.0 MG/DL 04/13/2021 6:08 AM [facility] Comment: THIS ASSAY IS NOT RECOMMENDED FOR PATIENTS UNDERGOING TREATMENT WITH ELTROMBOPAG DUE TO THE POTENTIAL FOR FALSELY ELEVATED RESULTS. ALKALINE PHOSPHATASE S/P/B 73 55 - 142 U/L 04/13/2021 6:08 AM [facility] AST 11(L) 15 - 37 U/L 04/13/2021 6:08 AM [facility] ALT 21 14 - 59 U/L 04/13/2021 6:08 AM [facility] TOTAL PROTEIN S/P/B 6.6 6.4 - 8.2 G/DL 04/13/2021 6:08 AM [facility] ALBUMIN S/P/B 3.1(L) 3.4 - 5.0 G/DL 04/13/2021 6:08 AM [facility] ANION GAP 14.6 5.0 - 15.0 MMOL/L 04/13/2021 6:08 AM [facility] OSMOLALITY (CALC) 315 MOSM/KG 022 6:08 AM [facility] Comment:REFERENCE RANGE NOT ESTABLISHED EGFR NON-AFR. AMER. 16(L) >89 ML/MIN/1. 73 M2 04/13/2021 6:08 AM [facility] EGFR AFR. AMER. 19(L) >89 ML/MIN/1. 73 M2 04/13/2021 6:08 AM [facility] GFR NOTES GFR REFERENCE S: 04/13/2021 6:08 AM [facility] Comment: THE ESTIMATED GFR IS [...] ml/min/1.73 m2 G5,KIDNEY FAILURE: <15 ml/min/1.73 m2 04/13/2021 5:06 AM LITHARGE SUPERVISOR Sanna Felder [facility] Final Res ult [facility] [address] [place] [address], * (ABNORMAL) CBC W/DIFF AUTOMATED (04/13/2021 5:06 AM LITHARGE SUPERVISOR) WBC 8.9 4.0 - 10.8 x10'3/uL 04/13/2021 5:46 AM LITHARGE SUPERVISOR [facility] RBC 4.76 4.10 - 5.40 x10'6/uL 04/13/2021 5:46 AM [facility] HGB 14.4 12.0 - 16.0 G/DL 04/13/2021 5:46 AM [facility] HCT 45.8 36.0 - 47.0 % 04/13/2021 5:46 AM [facility] MCV 96.2 78.0 - 100.0 FL 04/13/2021 5:46 AM [facility] MCH 30.3 27.0 - 31.0 PG 04/13/2021 5:46 AM [facility] MCHC 31.4(L) 33.0 - 36.0 G/DL 04/13/2021 5:46 AM [facility] RDW 14.1 11.5 - 14.5 % 04/13/2021 5:46 AM [facility] PLT 220 150 - 350 x10'3/uL 04/13/2021 5:46 AM [facility] MPV 12.0(H) 7.4 - 10.4 FL 04/13/2021 5:46 AM [facility] DIFFERENTIAL COMMENT NORMAL REFERENCE RANGE NOT ESTABLISHED FOR THE PROPORTIONAL LEUKOCYTE DIFFERENTIAL. 04/13/2021 5:46 AM [facility] SEG NEUTROPHILS 63.0 % 5:46 AM [facility] LYMPHOCYTES 22.4 % 04/13/2021 5:46 AM [facility] MONOCYTES 8.2 % 04/13/2021 5:46 AM [facility] EOSINOPHILS 5.6 % 04/13/2021 5:46 AM LITHARGE SUPERVISOR [facility] BASOPHILS 0.6 % 04/13/2021 5:46 AM [facility] IMMATURE GRANS % 0.2 % 04/13/19 5:46 AM LITHARGE SUPERVISOR [facility] NRBC 0.0 % 04/13/2021 5:46 AM LITHARGE SUPERVISOR [facility] ABS. NEUTROPHILS 5.61 1.60 - 8.30 x10'3/uL 04/13/2021 5:46 AM LITHARGE SUPERVISOR [facility] ABS. LYMPHOCYTES 2.00 0.80 - 4.70 x10'3/uL 04/13/2021 5:46 AM [facility] ABS. MONOCYTES 0.73 0.00 - 1.50 x10'3/uL 04/13/2021 5:46 AM [facility] ABS. EOSINOPHILS 0.50(H) 0.00 - 0.40 x10'3/uL 04/13/2021 5:46 AM [facility] ABS. BASOPHILS 0.05 0.00 - 0.20 x10'3/uL 04/13/2021 5:46 AM [facility] ABS. IMMATURE GRANULOCYTES 0.02 0.00 - 0.03 x10'3/uL 04/13/2021 5:46 AM [facility] ABS. NUCLEATED RBC'S 0.00 0.00 x10'3/uL 04/13/2021 5:46 AM [facility] 04/13/2021 5:06 AM [facility] us Sanna ARMAS- LAB[facility]AT[facility] Final Res ult [facility] [address] [place] [address], * (ABNORMAL) COMPREHENSIVE METABOLIC PANEL (04/12/2021 5:06 AM LITHARGE SUPERVISOR) SODIUM S/P/B 145 136 - 145 MMOL/L 04/12/2021 6:11 AM [facility] POTASSIUM S/P/B 3.5 3.5 - 5.1 MMOL/L 04/12/2021 6:11 AM [facility] CHLORIDE S/P/B 111(H) 98 - 107 MMOL/L 04/12/2021 6:11 AM [facility] CO2 21.4 21.0 - 32.0 MMOL/L 04/12/2021 6:11 AM [facility] GLUCOSE 110(H) 70 - 99 MG/DL 04/12/2021 6:11 AM [facility] Comment: FASTING GLUCOSE 100 TO 125 MG/DL IS CONSISTENT WITH IMPAIRED FASTING GLUCOSE. FASTING GLUCOSE >125 MG/DL IS CONSISTENT WITH DIABETES. RANDOM GLUCOSE >200 MG/DL WITH HYPERGLYCEMIC SYMPTOMS IS CONSISTENT WITH DIABETES. PER ADA GUIDELINES BUN 68(H) 6 - 24 MG/DL 04/12/2021 6:11 AM [facility] CREATININE S/P/B 3.30(H) 0.55 - 1.02 MG/DL 04/12/2021 6:11 AM [facility] CALCIUM S/P/B 7.9(L) 8.4 - 10.5 MG/DL 04/12/2021 6:11 AM [facility] BILIRUBIN TOTAL S/P/B 0.4 0.2 - 1.0 MG/DL 04/12/2021 6:11 AM [facility] Comment: THIS ASSAY IS NOT RECOMMENDED FOR PATIENTS UNDERGOING TREATMENT WITH ELTROMBOPAG DUE TO THE POTENTIAL FOR FALSELY ELEVATED RESULTS. ALKALINE PHOSPHATASE S/P/B 62 55 - 142 U/L 04/12/2021 6:11 AM [facility] AST 11(L) 15 - 37 U/L 04/12/2021 6:11 AM [facility] ALT 23 14 - 59 U/L 04/12/2021 6:11 AM [facility] TOTAL PROTEIN S/P/B 5.7(L) 6.4 - 8.2 G/DL 04/12/2021 6:11 AM [facility] ALBUMIN S/P/B 2.7(L) 3.4 - 5.0 G/DL 04/12/2021 6:11 AM [facility] ANION GAP 12.6 5.0 - 15.0 MMOL/L 04/12/2021 6:11 AM [facility] OSMOLALITY (CALC) 320 MOSM/KG 022 6:11 AM [facility] Comment:REFERENCE RANGE NOT ESTABLISHED EGFR NON-AFR. AMER. 14(L) >89 ML/MIN/1. 73 M2 04/12/2021 6:11 AM [facility] EGFR AFR. AMER. 16(L) >89 ML/MIN/1. 73 M2 04/12/2021 6:11 AM [facility] GFR NOTES GFR REFERENCE S: 04/12/2021 6:11 AM [facility] Comment: THE ESTIMATED GFR IS [...] ml/min/1.73 m2 G5,KIDNEY FAILURE: <15 ml/min/1.73 m2 04/12/2021 5:06 AM LITHARGE SUPERVISOR us Sanna Felder [facility] Final Res ult [facility] [address] [place] [address], * (ABNORMAL) CBC W/DIFF AUTOMATED (04/12/2021 5:06 AM LITHARGE SUPERVISOR) WBC 9.7 4.0 - 10.8 x10'3/uL 04/12/2021 6:00 AM [facility] RBC 4.33 4.10 - 5.40 x10'6/uL 04/12/2021 6:00 AM [facility] HGB 13.0 12.0 - 16.0 G/DL 04/12/2021 6:00 AM [facility] HCT 41.7 36.0 - 47.0 % 04/12/2021 6:00 AM [facility] MCV 96.3 78.0 - 100.0 FL 04/12/2021 6:00 AM [facility] MCH 30.0 27.0 - 31.0 PG 04/12/2021 6:00 AM [facility] MCHC 31.2(L) 33.0 - 36.0 G/DL 04/12/2021 6:00 AM [facility] RDW 14.3 11.5 - 14.5 % 04/12/2021 6:00 AM [facility] PLT 196 150 - 350 x10'3/uL 04/12/2021 6:00 AM [facility] MPV 11.6(H) 7.4 - 10.4 FL 04/12/2021 6:00 AM [facility] DIFFERENTIAL COMMENT NORMAL REFERENCE RANGE NOT ESTABLISHED FOR THE PROPORTIONAL LEUKOCYTE DIFFERENTIAL. 04/12/2021 6:00 AM [facility] SEG NEUTROPHILS 73.6 % 6:00 AM [facility] LYMPHOCYTES 12.7 % 04/12/2021 6:00 AM [facility] MONOCYTES 9.7 % 04/12/2021 6:00 AM [facility] EOSINOPHILS 3.1 % 04/12/2021 6:00 AM [facility] BASOPHILS 0.5 % 04/12/2021 6:00 AM [facility] IMMATURE GRANS % 0.4 % 04/12/19 6:00 AM [facility] NRBC 0.0 % 04/12/2021 6:00 AM [facility] ABS. NEUTROPHILS 7.16 1.60 - 8.30 x10'3/uL 04/12/2021 6:00 AM LITHARGE SUPERVISOR [facility] ABS. LYMPHOCYTES 1.24 0.80 - 4.70 x10'3/uL 04/12/2021 6:00 AM LITHARGE SUPERVISOR [facility] ABS. MONOCYTES 0.94 0.00 - 1.50 x10'3/uL 04/12/2021 6:00 AM LITHARGE SUPERVISOR [facility] ABS. EOSINOPHILS 0.30 0.00 - 0.40 x10'3/uL 04/12/2021 6:00 AM LITHARGE SUPERVISOR [facility] ABS. BASOPHILS 0.05 0.00 - 0.20 x10'3/uL 04/12/2021 6:00 AM [facility] ABS. IMMATURE GRANULOCYTES 0.04(H) 0.00 - 0.03 x10'3/uL 04/12/2021 6:00 AM [facility] ABS. NUCLEATED RBC'S 0.00 0.00 x10'3/uL 04/12/2021 6:00 AM [facility] 04/12/2021 5:06 AM [facility] Sanna Felder [facility] Final Res ult [facility] [address] [place] [address], * (ABNORMAL) COMPREHENSIVE METABOLIC PANEL (04/11/2021 6:25 AM LITHARGE SUPERVISOR) SODIUM S/P/B 147(H) 136 - 145 MMOL/L 04/11/2021 6:59 AM [facility] POTASSIUM S/P/B 3.7 3.5 - 5.1 MMOL/L 04/11/2021 6:59 AM [facility] CHLORIDE S/P/B 113(H) 98 - 107 MMOL/L 04/11/2021 6:59 AM [facility] CO2 19.0(L) 21.0 - 32.0 MMOL/L 04/11/2021 6:59 AM [facility] GLUCOSE 136(H) 70 - 99 MG/DL 04/11/2021 6:59 AM [facility] Comment: FASTING GLUCOSE 100 TO 125 MG/DL IS CONSISTENT WITH IMPAIRED FASTING GLUCOSE. FASTING GLUCOSE >125 MG/DL IS CONSISTENT WITH DIABETES. RANDOM GLUCOSE >200 MG/DL WITH HYPERGLYCEMIC SYMPTOMS IS CONSISTENT WITH DIABETES. PER ADA GUIDELINES BUN 77(H) 6 - 24 MG/DL 04/11/2021 6:59 AM [facility] CREATININE S/P/B 4.02(H) 0.55 - 1.02 MG/DL 04/11/2021 6:59 AM [facility] CALCIUM S/P/B 8.2(L) 8.4 - 10.5 MG/DL 04/11/2021 6:59 AM [facility] BILIRUBIN TOTAL S/P/B 0.5 0.2 - 1.0 MG/DL 04/11/2021 6:59 AM [facility] Comment: THIS ASSAY IS NOT RECOMMENDED FOR PATIENTS UNDERGOING TREATMENT WITH ELTROMBOPAG DUE TO THE POTENTIAL FOR FALSELY ELEVATED RESULTS. ALKALINE PHOSPHATASE S/P/B 71 55 - 142 U/L 04/11/2021 6:59 AM [facility] AST 17 15 - 37 U/L 04/11/2021 6:59 AM [facility] ALT 19 14 - 59 U/L 04/11/2021 6:59 AM [facility] TOTAL PROTEIN S/P/B 6.2(L) 6.4 - 8.2 G/DL 04/11/2021 6:59 AM [facility] ALBUMIN S/P/B 2.9(L) 3.4 - 5.0 G/DL 04/11/2021 6:59 AM [facility] ANION GAP 15.0 5.0 - 15.0 MMOL/L 04/11/2021 6:59 AM [facility] OSMOLALITY (CALC) 329 MOSM/KG 022 6:59 AM [facility] Comment:REFERENCE RANGE NOT ESTABLISHED EGFR NON-AFR. AMER. 11(L) >89 ML/MIN/1. 73 M2 04/11/2021 6:59 AM LITHARGE SUPERVISOR [facility] EGFR AFR. AMER. 12(L) >89 ML/MIN/1. 73 M2 04/11/2021 6:59 AM LITHARGE SUPERVISOR [facility] GFR NOTES GFR REFERENCE S: 04/11/2021 6:59 AM LITHARGE SUPERVISOR [facility] Comment: THE ESTIMATED GFR [...] ml/min/1.73 m2 G5,KIDNEY FAILURE: <15 ml/min/1.73 m2 04/11/2021 6:25 AM LITHARGE SUPERVISOR Sanna Felder [facility] Final Res ult [facility] [address] [place] [address], * (ABNORMAL) CBC W/DIFF AUTOMATED (04/11/2021 6:25 AM LITHARGE SUPERVISOR) WBC 13.7(H) 4.0 - 10.8 x10'3/uL 04/11/2021 6:41 AM LITHARGE SUPERVISOR [facility] RBC 4.49 4.10 - 5.40 x10'6/uL 04/11/2021 6:41 AM LITHARGE SUPERVISOR [facility] HGB 13.5 12.0 - 16.0 G/DL 04/11/2021 6:41 AM LITHARGE SUPERVISOR [facility] HCT 42.6 36.0 - 47.0 % 04/11/2021 6:41 AM [facility] MCV 94.9 78.0 - 100.0 FL 04/11/2021 6:41 AM [facility] MCH 30.1 27.0 - 31.0 PG 04/11/2021 6:41 AM [facility] MCHC 31.7(L) 33.0 - 36.0 G/DL 04/11/2021 6:41 AM [facility] RDW 14.4 11.5 - 14.5 % 04/11/2021 6:41 AM [facility] PLT 209 150 - 350 x10'3/uL 04/11/2021 6:41 AM [facility] MPV 10.9(H) 7.4 - 10.4 FL 04/11/2021 6:41 AM [facility] DIFFERENTIAL COMMENT NORMAL REFERENCE RANGE NOT ESTABLISHED FOR THE PROPORTIONAL LEUKOCYTE DIFFERENTIAL. 04/11/2021 6:41 AM [facility] SEG NEUTROPHILS 74.5 % 6:41 AM [facility] LYMPHOCYTES 14.8 % 04/11/2021 6:41 AM [facility] MONOCYTES 9.1 % 04/11/2021 6:41 AM [facility] EOSINOPHILS 0.6 % 04/11/2021 6:41 AM [facility] BASOPHILS 0.6 % 04/11/2021 6:41 AM [facility] IMMATURE GRANS % 0.4 % 04/11/19 6:41 AM [facility] NRBC 0.0 % 04/11/2021 6:41 AM [facility] ABS. NEUTROPHILS 10.21(H) 1.60 - 8.30 x10'3/uL 04/11/2021 6:41 AM [facility] ABS. LYMPHOCYTES 2.03 0.80 - 4.70 x10'3/uL 04/11/2021 6:41 AM [facility] ABS. MONOCYTES 1.25 0.00 - 1.50 x10'3/uL 04/11/2021 6:41 AM [facility] ABS. EOSINOPHILS 0.08 0.00 - 0.40 x10'3/uL 04/11/2021 6:41 AM LITHARGE SUPERVISOR [facility] ABS. BASOPHILS 0.08 0.00 - 0.20 x10'3/uL 04/11/2021 6:41 AM [facility] ABS. IMMATURE GRANULOCYTES 0.05(H) 0.00 - 0.03 x10'3/uL 04/11/2021 6:41 AM [facility] ABS. NUCLEATED RBC'S 0.00 0.00 x10'3/uL 04/11/2021 6:41 AM [facility] 04/11/2021 6:25 AM [facility] Sanna Felder [facility] Final Res ult [facility] [address] [place] [address], * (ABNORMAL) BASIC METABOLIC PANEL (04/10/2021 6:03 PM [employer]PERVISOR) SODIUM S/P/B 155(H) 136 - 145 MMOL/L 04/10/2021 6:21 PM [facility] POTASSIUM S/P/B 4.0 3.5 - 5.1 MMOL/L 04/10/2021 6:21 PM [facility] CHLORIDE S/P/B 117(H) 98 - 107 MMOL/L 04/10/2021 6:21 PM [facility] CO2 18.2(L) 21.0 - 32.0 MMOL/L 04/10/2021 6:21 PM [facility] GLUCOSE 130(H) 70 - 99 MG/DL 04/10/2021 6:21 PM [facility] Comment: FASTING GLUCOSE 100 TO 125 MG/DL IS CONSISTENT WITH IMPAIRED FASTING GLUCOSE. FASTING GLUCOSE >125 MG/DL IS CONSISTENT WITH DIABETES. RANDOM GLUCOSE >200 MG/DL WITH HYPERGLYCEMIC SYMPTOMS IS CONSISTENT WITH DIABETES. PER ADA GUIDELINES BUN 86(H) 6 - 24 MG/DL 04/10/2021 6:21 PM [facility] CREATININE S/P/B 4.52(H) 0.55 - 1.02 MG/DL 04/10/2021 6:21 PM [facility] CALCIUM S/P/B 9.3 8.4 - 10.5 MG/DL 04/10/2021 6:21 PM [facility] ANION GAP 19.8(H) 5.0 - 15.0 MMOL/L 04/10/2021 6:21 PM [employer] [facility] OSMOLALITY (CALC) 348 MOSM/KG 022 6:21 PM [facility] Comment:REFERENCE RANGE NOT ESTABLISHED EGFR NON-AFR. AMER. 9(L) >89 ML/MIN/1. 73 M2 04/10/2021 6:21 PM [facility] EGFR AFR. AMER. 11(L) >89 ML/MIN/1. 73 M2 04/10/2021 6:21 PM [facility] GFR NOTES GFR REFERENCE S: 04/10/2021 6:21 PM [facility] Comment: THE ESTIMATED GFR IS [...] ml/min/1.73 m2 G5,KIDNEY FAILURE: <15 ml/min/1.73 m2 04/10/2021 6:03 PM [employer] us Sanna Felder [facility] Final Res ult [facility] [address] [place] [address], * XR CHEST PA+LAT (04/10/2021 3:33 PM [employer] SUPER[employer]) Anatomical Region Laterality Modality Chest Radiographic Sharon ging 04/10/2021 3:35 PM [employer]PER[employer] Impressions 04/10/2021 3:36 PM [employer]PER[employer]OR Impression: No acute chest findings. Referred By: ?? Interpreted By: Marco A Marshall MD, 04/10/2021 3:35 PM Narrative 04/10/2021 3:36 PM [employer]PER[employer] Examination: Chest 2 View History: Altered mental status DATE/TIME: 04/10/2021 3:33 PM Comparison: 01/12/2021 Technique: PA and lateral views were obtained. Findings: Heart size, mediastinal contours and pulmonary vasculature are within normal limits. ??Implantable loop recorder device in the anterior chest. ??No pulmonary consolidation, pleural effusion or pneumothorax. ??Old right rib fractures. ??Right glenohumeral arthroplasty hardware partly included. Procedure Note Marco A Marshall MD - 04/10/2021 Examination: Chest 2 View History: Altered mental status DATE/TIME: 04/10/2021 3:33 PM Comparison: 01/12/2021 Technique: PA and lateral views were obtained. Findings: Heart size, mediastinal contours and pulmonary vasculature arewithin normal limits. Implantable loop recorder device in the anteriorchest. No pulmonary consolidation, pleural effusion or pneumothorax. Oldright rib fractures. Right glenohumeral arthroplasty hardware partlyincluded. Impression: No acute chest findings. Referred By: Interpreted By: Marco A Marshall MD, 04/10/2021 3:35 PM Kayden Camarena MD GENERAL IMAGING Final Result * CULTURE, BACTERIA, BLOOD (04/10/2021 3:15 PM [employer]PER[employer]OR) SPEC DESCRIPTION BLOOD 04/10/2021 3:03 PM [employer] [facility] SPECIAL REQUESTS NO SPECIAL REQUEST 04/10/2021 3:03 PM [employer] [facility] CULTURE RESULT NO GROWTH 5 DAYS 04/15/2021 11:57 AM [employer] [facility] BLOOD SPECIMEN OBTAINED FOR BLOOD CULTURE / Unknown 04/10/2021 3:15 PM L[employer]AR[employer] SUPERVISOR 04/10/2021 3:24 PM [employer]PER[employer] us Kayden Camarena MD MICROBIOLOGY - GENERAL ORDERABL ES Final Result Performing Organization Address City/[facility]/ZIP Co de Phone Number [facility] [address] [place] [id number], * CULTURE, BACTERIA, BLOOD (04/10/2021 3:10 PM LITHARGE SUPERVISOR) SPEC DESCRIPTION BLOOD 04/10/2021 3:03 PM LITHARGE SUPERVISOR [facility] SPECIAL REQUESTS NO SPECIAL REQUEST 04/10/2021 3:03 PM LITHARGE SUPERVISOR [facility] CULTURE RESULT NO GROWTH 5 DAYS 04/15/2021 11:57 AM LITHARGE SUPERVISOR [facility] BLOOD SPECIMEN OBTAINED FOR BLOOD CULTURE / Unknown 04/10/2021 3:10 PM LITHARGE SUPERVISOR 04/10/2021 3:24 PM LITHARGE SUPERVISOR us Kayden Camarena MD MICROBIOLOGY - GENERAL ORDERABL ES Final Result Performing Organization Address [facility] Co de Phone Number [facility] [address] [place] [phone], * CULTURE URINE (04/10/2021 2:54 PM LITHARGE SUPERVISOR) SPEC DESCRIPTION URINE STRAIGHT CATH 04/10/2021 3:15 PM LITHARGE SUPERVISOR [facility] SPECIAL REQUESTS NO SPECIAL REQUEST 04/10/2021 3:15 PM LITHARGE SUPERVISOR [facility] CULTURE RESULT EQUAL OR >100,000 CFU/mL CITROBACTER FREUNDII 04/13/2021 1:[address] [facility] URINE SPECIMEN OBTAINED BY SINGLE CATHETERIZATION OF URINARY BLADDER / Unknown 04/10/2021 2:54 PM LITHARGE SUPERVISOR 04/10/2021 3:15 PM LITHARGE SUPERVISOR Narrative Organism Antibiotic Method Susceptibility Citrobacter freundii CEFAZOLIN HOLLY (KB) Resistant Citrobacter freundii AMOXICILLIN/CLAVULANIC A HOLLY (VIT EK) Resistant Citrobacter freundii AZTREONAM HOLLY (VITEK) Sensitive Citrobacter freundii CEFEPIME HOLLY (VITEK) Sensitive Citrobacter freundii CEFTRIAXONE HOLLY (VITEK) Sensitive Citrobacter freundii CIPROFLOXACIN HOLLY (VITEK) Sensitive Citrobacter freundii ERTAPENEM HOLLY (VITEK) Sensitive Citrobacter freundii NITROFURANTOIN HOLLY (VITEK) Sensitive Citrobacter freundii GENTAMICIN HOLLY (VITEK) Sensitive Citrobacter freundii IMIPENEM HOLLY (VITEK) Sensitive Citrobacter freundii LEVOFLOXACIN HOLLY (VITEK) Sensitive Citrobacter freundii MEROPENEM HOLLY (VITEK) Sensitive Citrobacter freundii PIPRACIL/TAZO HOLLY (VITEK) Sensitive Citrobacter freundii TRIMETH-SULFAMETH. HOLLY (VITEK) Sensitive Citrobacter freundii TETRACYCLINE HOLLY (VITEK) Sensitive Kayden Camarena MD MICROBIOLOGY - GENERAL ORDERABL ES Final Result Performing Organization Address City/[facility]/ZIP Co de Phone Number [facility] [address] [place] [address], [place] [phone] [facility] [address] [place] [address], * OSMOLALITY, URINE (04/10/2021 2:54 PM LITHARGE SUPERVISOR) OSMOLALITY (U) 446 50 - 1,200 MOSM/KG 04/11/2021 6:[address] [facility] URINE SPECIMEN / Unknown 04/10/2021 2:54 PM LITHARGE SUPERVISOR Kayden Camarena MD URINE ORDERABLES Final Result Performing Organization Address City/[facility]/ZIP Co de Phone Number [facility] [address] [place] [address], [place] [phone] * (ABNORMAL) URINALYSIS (04/10/2021 2:54 PM LITHARGE SUPERVISOR) COLOR (U) YELLOW 04/10/2021 3:14 PM LITHARGE SUPERVISOR [facility] TRANSPARENCY SLIGHTLY CLOUDY 04/10/2021 3:14 PM LITHARGE SUPERVISOR [facility] SPECIFIC GRAVITY (U) 1.025 1.000 - 1.025 04/10/2021 3:14 PM LITHARGE SUPERVISOR [facility] U PH 5.5 5.0 - 8.0 04/10/2021 3:14 PM LITHARGE SUPERVISOR [facility] LEUKOCYTES (U) NEGATIVE NEGATIVE 04/10/2021 3:14 PM LITHARGE SUPERVISOR [facility] NITRITES NEGATIVE NEGATIVE 04/10/2021 3:14 PM LITHARGE SUPERVISOR [facility] PROTEIN (U) 3+(A) NEGATIVE 04/10/2021 3:14 PM LITHARGE SUPERVISOR [facility] URINE GLUCOSE NEGATIVE NEGATIVE 04/10/2021 3:14 PM LITHARGE SUPERVISOR [facility] KETONES MG/DL (U) 1+(A) NEGATIVE 04/10/2021 3:14 PM [facility] UROBILINOGEN 0.2 <1.0 EU/DL 04/10/2021 3:14 PM LITHARGE SUPERVISOR [facility] BLOOD (U) 2+(A) NEGATIVE 04/10/2021 3:14 PM LITHARGE SUPERVISOR [facility] WBC/HPF 10-20(A) 0 - 5 /HPF 04/10/2021 3:14 PM LITHARGE SUPERVISOR [facility] RBC/HPF 0-5 0 - 5 /HPF 04/10/2021 3:14 PM LITHARGE SUPERVISOR [facility] EPI/HPF OCCASIONAL /LPF 04/10/2021 3:14 PM LITHARGE SUPERVISOR [facility] BACTERIA (U) 3+ /HPF 04/10/2021 3:14 PM LITHARGE SUPERVISOR [facility] BILIRUBIN (U) NEGATIVE NEGATIVE 04/10/2021 3:14 PM LITHARGE SUPERVISOR [facility] URINE, STRAIGHT CATH 04/10/2021 2:54 PM LITHARGE SUPERVISOR us Kayden Camarena MD URINE ORDERABLES Final Result [facility] [address] [place] [address], * (ABNORMAL) MAGNESIUM (04/10/2021 2:38 PM LITHARGE SUPERVISOR) MAGNESIUM 2.8(H) 1.8 - 2.4 MG/DL 04/10/2021 4:06 PM LITHARGE SUPERVISOR [facility] 04/10/2021 2:38 PM LITHARGE SUPERVISOR Sanna Felder [facility] Final Res ult [facility] [address] [place] [address], * LACTIC ACID - SINGLE (04/10/2021 2:38 PM LITHARGE SUPERVISOR) LACTIC ACID VENOUS 2.0 0.4 - 2.0 MMOL/L 04/10/2021 3:21 PM LITHARGE SUPERVISOR [facility] 04/10/2021 2:38 PM LITHARGE SUPERVISOR Kayden Camarena MD LABORATORY Final Result Performing Organization Address [facility]/ZIP Co de Phone Number [facility] [address] [place] [address], * (ABNORMAL) COMPREHENSIVE METABOLIC PANEL (04/10/2021 2:38 PM LITHARGE SUPERVISOR) Pathologist [facility] SODIUM S/P/B 156(HH) 136 - 145 MMOL/L 04/10/2021 3:05 PM [facility] Comment: Critical Result(s) Called to and read back by: TONJA ?? at: 15:04:28 ?? 04/10/2021 by ETCR. POTASSIUM S/P/B 4.2 3.5 - 5.1 MMOL/L 04/10/2021 3:05 PM [facility] CHLORIDE S/P/B 116(H) 98 - 107 MMOL/L 04/10/2021 3:05 PM [facility] CO2 15.6(L) 21.0 - 32.0 MMOL/L 04/10/2021 3:05 PM [facility] GLUCOSE 109(H) 70 - 99 MG/DL 04/10/2021 3:05 PM [facility] Comment: FASTING GLUCOSE 100 TO 125 MG/DL IS CONSISTENT WITH IMPAIRED FASTING GLUCOSE. FASTING GLUCOSE >125 MG/DL IS CONSISTENT WITH DIABETES. RANDOM GLUCOSE >200 MG/DL WITH HYPERGLYCEMIC SYMPTOMS IS CONSISTENT WITH DIABETES. PER ADA GUIDELINES BUN 84(H) 6 - 24 MG/DL 04/10/2021 3:05 PM [facility] CREATININE S/P/B 4.48(H) 0.55 - 1.02 MG/DL 04/10/2021 3:05 PM [facility] CALCIUM S/P/B 9.6 8.4 - 10.5 MG/DL 04/10/2021 3:05 PM [facility] BILIRUBIN TOTAL S/P/B 0.8 0.2 - 1.0 MG/DL 04/10/2021 3:05 PM [facility] Comment: THIS ASSAY IS NOT RECOMMENDED FOR PATIENTS UNDERGOING TREATMENT WITH ELTROMBOPAG DUE TO THE POTENTIAL FOR FALSELY ELEVATED RESULTS. ALKALINE PHOSPHATASE S/P/B 100 55 - 142 U/L 04/10/2021 3:05 PM [facility] AST 30 15 - 37 U/L 04/10/2021 3:05 PM [facility] ALT 31 14 - 59 U/L 04/10/2021 3:05 PM [facility] TOTAL PROTEIN S/P/B 8.5(H) 6.4 - 8.2 G/DL 04/10/2021 3:05 PM [facility] ALBUMIN S/P/B 4.2 3.4 - 5.0 G/DL 04/10/2021 3:05 PM [facility] ANION GAP 24.4(H) 5.0 - 15.0 MMOL/L 04/10/2021 3:05 PM [facility] OSMOLALITY (CALC) 348 MOSM/KG 022 3:05 PM [facility] Comment:REFERENCE RANGE NOT ESTABLISHED EGFR NON-AFR. AMER. 9(L) >89 ML/MIN/1. 73 M2 04/10/2021 3:05 PM LITHARGE SUPERVISOR [facility] EGFR AFR. AMER. 11(L) >89 ML/MIN/1. 73 M2 04/10/2021 3:05 PM LITHARGE SUPERVISOR [facility] GFR NOTES GFR REFERENCE S: 04/10/2021 3:05 PM LITHARGE SUPERVISOR [facility] Comment: THE ESTIMATED GFR [...] ml/min/1.73 m2 G5,KIDNEY FAILURE: <15 ml/min/1.73 m2 04/10/2021 2:38 PM LITHARGE SUPERVISOR Kayden Camarena MD LABORATORY Final Result [facility] [address] [place] [address], * (ABNORMAL) CBC W/DIFF AUTOMATED (04/10/2021 2:38 PM LITHARGE SUPERVISOR) WBC 23.2(H) 4.0 - 10.8 x10'3/uL 04/10/2021 2:47 PM LITHARGE SUPERVISOR [facility] RBC 5.55(H) 4.10 - 5.40 x10'6/uL 04/10/2021 2:47 PM LITHARGE SUPERVISOR [facility] HGB 16.7(H) 12.0 - 16.0 G/DL 04/10/2021 2:47 PM LITHARGE SUPERVISOR [facility] HCT 53.6(H) 36.0 - 47.0 % 04/10/2021 2:47 PM LITHARGE SUPERVISOR [facility] MCV 96.6 78.0 - 100.0 FL 04/10/2021 2:47 PM LITHARGE SUPERVISOR [facility] MCH 30.1 27.0 - 31.0 PG 04/10/2021 2:47 PM [facility] MCHC 31.2(L) 33.0 - 36.0 G/DL 04/10/2021 2:47 PM [facility] RDW 14.6(H) 11.5 - 14.5 % 04/10/2021 2:47 PM LITHARGE SUPERVISOR [facility] PLT 301 150 - 350 x10'3/uL 04/10/2021 2:47 PM [facility] MPV 11.1(H) 7.4 - 10.4 FL 04/10/2021 2:47 PM [facility] DIFFERENTIAL COMMENT NORMAL REFERENCE RANGE NOT ESTABLISHED FOR THE PROPORTIONAL LEUKOCYTE DIFFERENTIAL. 04/10/2021 2:47 PM LITHARGE SUPERVISOR [facility] SEG NEUTROPHILS 86.8 % 2:47 PM [facility] LYMPHOCYTES 4.0 % 04/10/2021 2:47 PM [facility] MONOCYTES 8.4 % 04/10/2021 2:47 PM [facility] EOSINOPHILS 0.0 % 04/10/2021 2:47 PM [facility] BASOPHILS 0.3 % 04/10/2021 2:47 PM [facility] IMMATURE GRANS % 0.5 % 04/10/19 2:47 PM [facility] NRBC 0.0 % 04/10/2021 2:47 PM [facility] ABS. NEUTROPHILS 20.11(H) 1.60 - 8.30 x10'3/uL 04/10/2021 2:47 PM [facility] ABS. LYMPHOCYTES 0.93 0.80 - 4.70 x10'3/uL 04/10/2021 2:47 PM LITHARGE SUPERVISOR [facility] ABS. MONOCYTES 1.95(H) 0.00 - 1.50 x10'3/uL 04/10/2021 2:47 PM LITHARGE SUPERVISOR [facility] ABS. EOSINOPHILS 0.01 0.00 - 0.40 x10'3/uL 04/10/2021 2:47 PM LITHARGE SUPERVISOR [facility] ABS. BASOPHILS 0.08 0.00 - 0.20 x10'3/uL 04/10/2021 2:47 PM LITHARGE SUPERVISOR [facility] ABS. IMMATURE GRANULOCYTES 0.11(H) 0.00 - 0.03 x10'3/uL 04/10/2021 2:47 PM LITHARGE SUPERVISOR [facility] ABS. NUCLEATED RBC'S 0.00 0.00 x10'3/uL 04/10/2021 2:47 PM LITHARGE SUPERVISOR [facility] 04/10/2021 2:38 PM LITHARGE SUPERVISOR Kayden Camarena MD LABORATORY Final Result Performing Organization Address City/State/[facility] Co de Phone Number [facility] [email or web address] [place] [address], * CT HEAD WO CON (04/10/2021 2:24 PM LITHARGE SUPERVISOR) Anatomical Region Laterality Modality Head Computed Tomogra phy 04/10/2021 2:32 PM LITHARGE SUPERVISOR Impressions 04/10/2021 2:41 PM LITHARGE SUPERVISOR IMPRESSION: 1. ??No acute intracranial process identified. 2. ??Stable cortical atrophy, small vessel disease and chronic lacunar infarct as described. Referred By: ?? Interpreted By: Jacky Saul MD, 04/10/2021 2:32 PM Narrative 04/10/2021 2:41 PM LITHARGE SUPERVISOR Examination: CT of the head without contrast. Exam time: 1428 hours. Clinical history: Alteration of consciousness. ??Confusion. Comparison: 10/17/2020. Technique: Noncontrast axial scans from skull base to vertex. A dose lowering technique was used for this procedure, which may include, but is not limited to, dose reduction techniques, automated exposure control, the use of iterative reconstruction and ALARA/Image Gently techniques. Findings: There is prominence of the ventricles, fissures and sulci, greater than anticipated for age, compatible with moderate diffuse cortical atrophy. ??This is unchanged. ??No shift of midline or mass effect is noted. ??Asymmetric basal ganglia calcification is again noted and may be physiologic. ??There is stable periventricular decreased attenuation, compatible with small vessel disease. ??There is stable focal hypodensity in the thalamus on the right, compatible with chronic lacunar infarct. ??No new areas of abnormal x-ray attenuation are identified. ??In particular, there is no mass, hemorrhage or sign of acute stroke. ??No extracerebral fluid collections. ??The mastoid air cells and visualized paranasal sinuses appear clear. Procedure Note Jacky Saul MD - 04/10/2021 Examination: CT of the head without contrast. Exam time: 1428 hours. Clinical history: Alteration of consciousness. Confusion. Comparison: 10/17/2020. Technique: Noncontrast axial scans from skull base to vertex. A doselowering technique was used for this procedure, which may include, but isnot limited to, dose reduction techniques, automated exposure control, theuse of iterative reconstruction and ALARA/Image Gently techniques. Findings: There is prominence of the ventricles, fissures and sulci,greater than anticipated for age, compatible with moderate diffusecortical atrophy. This is unchanged. No shift of midline or mass effectis noted. Asymmetric basal ganglia calcification is again noted and maybe physiologic. There is stable periventricular decreased attenuation,compatible with small vessel disease. There is stable focal hypodensityin the thalamus on the right, compatible with chronic lacunar infarct. Nonew areas of abnormal x-ray attenuation are identified. In particular,there is no mass, hemorrhage or sign of acute stroke. No extracerebralfluid collections. The mastoid air cells and visualized paranasal sinusesappear clear. IMPRESSION: 1. No acute intracranial process identified. 2. Stable cortical atrophy, small vessel disease and chronic lacunarinfarct as described. Referred By: Interpreted By: Jacky Saul MD, 04/10/2021 2:32 PM us Kayden Camarena MD CT Final Result documented in this encounter Visit Diagnoses Diagnosis Acute renal failure superimposed on stage 3 chronic kidney disease ([facility])- Primary Hypernatremia Hyperosmolality and/or hypernatremia UTI (urinary tract infection) Urinary tract infection, site not specified Primary hypertension Unspecified essential hypertension Hypernatremia Hyperosmolality and/or hypernatremia Citrobacter infection Infection due to other gram-negative organisms in conditions classified elsewhere and of unspecified site Urinary tract infection Urinary tract infection, site not specified documented in this encounter Admitting Diagnoses Diagnosis Acute renal failure (ARF) ([facility]) Acute kidney failure, unspecified UTI (urinary tract infection) Urinary tract infection, site not specified Hypernatremia Hyperosmolality and/or hypernatremia documented in this encounter Administered Medications Inactive Administered Medications - up to 3 most recent administrations Medication Order MAR Action Action Date Dose Rate Site acetaminophen (TYLENOL) tablet 650 mg 650 mg, Oral, Every 4 hours PRN, Mild pain (Scale 1 - 3), Starting on Sun04/10/21 at 1806, Until Sun04/13/21 at 1659, Maximum dose of acetaminophen is 4000 mg from all sources in 24 hours. Given 04/12/2021 9:52 AM LITHARGE SUPERVISOR 650 mg amLODIPine (NORVASC) tablet 5 mg 5 mg, Oral, Daily, First dose on Sun04/10/21 at 1830, Until Discontinued Given 04/13/2021 8:19 AM LITHARGE SUPERVISOR 5 mg Given 04/12/2021 8:11 AM LITHARGE SUPERVISOR 5 mg Given 04/11/2021 9:11 AM LITHARGE SUPERVISOR 5 mg aspirin EC (ECOTRIN) tablet 81 mg 81 mg, Oral, Daily, First dose on Sun04/10/21 at 1830, Until Discontinued, Do not break, chew, or crush. Given 04/13/2021 8:19 AM LITHARGE SUPERVISOR 81 mg Given 04/12/2021 8:11 AM LITHARGE SUPERVISOR 81 mg Given 04/11/2021 9:11 AM LITHARGE SUPERVISOR 81 mg cefTRIAXone (ROCEPHIN) 1 g in sodium chloride 0.9 % 50 mL IVPB 1 g, Intravenous, at 100 mL/hr, Once, 1 dose, On Sun04/10/21 at 1545 New Bag 04/10/2021 3:54 PM LITHARGE SUPERVISOR 1 g 100 mL/hr cefTRIAXone (ROCEPHIN) 1 g in sodium chloride 0.9 % 50 mL IVPB 1 g, Intravenous, at 100 mL/hr, Every 24 hours, First dose (after last reorder) on Sun04/11/21 at 1245, Until Discontinued New Bag 04/13/2021 12:22 PM LITHARGE SUPERVISOR 1 g 100 mL/hr New Bag 04/12/2021 12:37 PM LITHARGE SUPERVISOR 1 g 100 mL/hr Bag 04/11/2021 12:39 PM LITHARGE SUPERVISOR 1 g 100 mL/hr dextrose 5 %-sodium chloride 0.45 % infusion at 110 mL/hr, Intravenous, Once, 1 dose, On Sun04/10/21 at 1545 New Bag 04/10/2021 3:53 PM LITHARGE SUPERVISOR 110 mL/h r dextrose 5 %-sodium chloride 0.45 % infusion at 110 mL/hr, Intravenous, Continuous, Starting on Sun04/10/21 at 1830, Until Sun04/13/21 at 1659 New Bag 04/13/2021 5:58 AM LITHARGE SUPERVISOR 110 mL/hr Bag 04/12/2021 8:41 PM LITHARGE SUPERVISOR 110 mL/hr New 04/12/2021 9:47 AM LITHARGE SUPERVISOR 110 mL/hr enoxaparin (LOVENOX) 40 MG/0.4ML syringe 40 mg 40 mg, Subcutaneous, Nightly (enoxaparin), First dose on Sun04/10/21 at 2100, Until Discontinued, Administer by deep SubQ injection alternating between the left or right anterolateral and left or right posterolateral abdominal wall. Given 04/12/2021 8:42 PM LITHARGE SUPERVISOR 40 mg Left Lower Abdomen Given 04/11/2021 9:37 PM LITHARGE SUPERVISOR 40 mg Le ft Lower Abdomen Given 04/10/2021 8:58 PM LITHARGE SUPERVISOR 40 mg Le ft Lower Abdomen metoprolol succinate ER (TOPROL-XL) 24 hr tablet 50 mg 50 mg, Oral, Daily, First dose on Sun04/10/21 at 1830, Until Discontinued, May be split in half along the tablet score line; do not chew or crush. Given 04/13/2021 8:19 AM LITHARGE SUPERVISOR 50 mg Given 04/12/2021 8:11 AM LITHARGE SUPERVISOR 50 mg Given 04/11/2021 9:11 AM LITHARGE SUPERVISOR 50 mg nystatin (MYCOSTATIN) powder Topical, Once, 1 dose, On Sun04/10/21 at 1515, MEDICATION FOR TAKE HOME Given 04/10/2021 6:45 PM LITHARGE SUPERVISOR polyethylene glycol (GLYCOLAX) packet 1 packet 1 packet, Oral, Once, 1 dose, On Sun04/12/21 at 1500, Dissolve powder in 240 mL water Given 04/12/2021 2:53 PM LITHARGE SUPERVISOR 1 packet senna-docusate (SENOKOT-S) 8.6-50 MG tablet 1 tablet 1 tablet, Oral, Nightly at bedtime, First dose on Sun04/12/21 at 2100, Until Discontinued documented in this encounter Active and Recently Administered Medications Times are shown in LITHARGE SUPERVISOR. Scheduled Medication Order 04/11/2021 04/12/2021 04/13/2021 amLODIPine (NORVASC) tablet 5 mg 5 mg, Oral, Daily, First dose on Sun04/10/21 at 1830, Until Discontinued 0911 (Given - Provider: Lynda Saba RN) 0811 (Given - Provider: Clementina Villanueva RN) 0819 (Given - Provider: Claire Daley RN) aspirin EC (ECOTRIN) tablet 81 mg 81 mg, Oral, Daily, First dose on Sun04/10/21 at 1830, Until Discontinued, Do not break, chew, or crush. 0911 (Given - Provider: Lynda Saba RN) 0811 (Given - Provider: Clementina Villanueva RN) 0819 (Given - Provider: Claire Daley RN) cefTRIAXone (ROCEPHIN) 1 g in sodium chloride 0.9 % 50 mL IVPB 1 g, Intravenous, at 100 mL/hr, Every 24 hours, First dose (after last reorder) on Sun04/11/21 at 1245, Until Discontinued 1239 (New Bag - Provider: Lynda Saba RN)1309 (Infusion Stop Time - Provider: Lynda Saba RN) 1237 (New Bag - Provider: Clementina Villanueva RN)1307 (Infusion Stop Time - Provider: Clementina Villanueva RN) 1222 (New Bag - Provider: Claire Daley RN)1256 (Infusion Stop Time - Provider: Clementina Villanueva RN) enoxaparin (LOVENOX) 40 MG/0.4ML syringe 40 mg(Linked Group 1) 40 mg, Subcutaneous, Nightly (enoxaparin), First dose on Sun04/10/21 at 2100, Until Discontinued, Administer by deep SubQ injection alternating between the left or right anterolateral and left or right posterolateral abdominal wall. 2136 (Given - Provider: Rita Kline RN) 2041 (Given - Provider: Soraya Mccarthy RN) metoprolol succinate ER (TOPROL-XL) 24 hr tablet 50 mg 50 mg, Oral, Daily, First dose on Sun04/10/21 at 1830, Until Discontinued, May be split in half along the tablet score line; do not chew or crush. 09 (Given - Provider: Lynda Saba RN) 08 (Given - Provider: Clementina Villanueva, DANIAL) 08 (Given - Provider: Claire Daley RN) polyethylene glycol (GLYCOLAX) packet 1 packet (COMPLETED) 1 packet, Oral, Once, 1 dose, On Sun04/12/21 at 1500, Dissolve powder in 240 mL water 145 (Given - Provider: Clementina Villanueva, DANIAL) senna-docusate (SENOKOT-S) 8.6-50 MG tablet 1 tablet 1 tablet, Oral, Nightly at bedtime, First dose on Sun04/12/21 at 2100, Until Discontinued 2048 (Not Given - Provider: Soraya Mccarthy RN - Reason: Patient/family declined) Continuous Medication Order 04/11/2021 04/12/2021 04/13/2021 dextrose 5 %-sodium chloride 0.45 % infusion at 110 mL/hr, Intravenous, Continuous, Starting on Sun04/10/21 at 1830, Until Sun04/13/21 at 1659 1239 (New Bag - Provider: Lynda Saba RN)2315 (Infusion Stop Time - Provider: Rita Kline RN)231 (New Bag - Provider: Rita Kline RN) 0947 (New Bag - Provider: Clementina Villanueva RN)2040 (New Bag - Provider: Soraya Mccarthy RN) 0558 (New Bag - Provider: Soraya Mccarthy RN)1256 (Infusion Stop Time - Provider: Clementina Villanueva RN) PRN Medication Order 04/11/2021 04/12/2021 04/13/2021 acetaminophen (TYLENOL) tablet 650 mg 650 mg, Oral, Every 4 hours PRN, Mild pain (Scale 1 - 3), Starting on 04/10/21 at 1806, Until Sun04/13/21 at 1659, Maximum dose of acetaminophen is 4000 mg from all sources in 24 hours. 0952 (Given - Provider: Clementina Villanueva RN) albuterol (PROVENTIL) (2.5 MG/3ML) 0.083% nebulizer solution 0.63 mg 0.63 mg, Nebulization, Every 6 hours PRN, Wheezing, Starting on 04/10/21 at 1806, Until Sun04/13/21 at 1659 ondansetron (ZOFRAN) injection 4 mg 4 mg, Intravenous, Every 8 hours PRN, Nausea, Vomiting, Starting on 04/10/21 at 1806, Until Sun04/13/21 at 1659, IV push over 2-5 minutes. Linked Groups Order Group 1: enoxaparin (LOVENOX) 40 MG/0.4ML syringe 40 mgJump to med 40 mg, Subcutaneous, Nightly (enoxaparin), First dose on 04/10/21 at 2100, Until Discontinued, Administer by deep SubQ injection alternating between the left or right anterolateral and left or right posterolateral abdominal wall. And Moderate Risk for VTE (COMPLETED) documented in this encounter Care Teams [employer] Relationship Specialty Start Date End Date Jasson Valdivia MD [address] [place] [address] [phone] PCP - General FAMILY PRACTICE 11/03/18 Huber Milligan MD [address] [place] [address] [phone] Consulting Physician Vascular Neurology 04/30/19 Norm Hopkins MD [address] [place] [address] Consulting Physician CLINICAL CARDIAC ELECTROPHYSIOLOGY 04/30/19 documented as of this encounter
--- OUTSIDE RECORDS SUMMARY | 2024-03-19 18:39 | XMS_ITS | Encounter Summary ---
Author Organization [facility] Address [address] [place] [address]. [place], [place] [id number] [place] [id number] Care Team Providers Care Candy Bar Attendant Name Role Phone Jasson Cueva MD Primary Care Provider [phone] Huber Milligan MD Unavailable [phone] Norm Hopkins MD Unavailable [phone] Encounter Details Date Type Department Care Team (Latest Contact Info) Description 11/16/2021 Travel Social History Tobacco Use Types Packs/Day Years Used Date Smoking Tobacco: Former Cigarettes Smokeless Tobacco: Never Alcohol Use Standard Drinks/Week Comments Not Currently 0 (1 standard drink = 0.6 oz pur e alcohol) Comments No Sex and Gender Information Value Date Recorded Sex Assigned at Not on file Legal 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 MANAGER MEDICARE MARKETING Gender Identity Not on file Sexual Orientation Not on file COVID-19 Exposure Response Date Recorded In the last 10 days, have yo u been in contact with someone who was confirmed or suspected to have Coronavirus/COVID-19? No / Unsure 11/16/2021 1:04 PM CDT documented as of this encounter Functional Status * RETIRED Are you deaf or do you have serious difficulty hearing Answer Date of Assessment Author Status No 04/10/2021 6:08 PM MANAGER MEDICARE MARKETING Activ e * RETIRED Are you blind or do you have serious difficulty seeing, even when wearing glasses? Answer Date of Assessment Author Status No 04/10/2021 6:08 PM MANAGER MEDICARE MARKETING Activ e * Do you have serious difficulty walking or climbing stairs? Answer Date of Assessment Author Status No 04/10/2021 6:08 PM Olivia Watson R N Active * Do you have difficulty dressing or bathing? Answer Date of Assessment Author Status No 04/10/2021 6:08 PM Olivia Watson R N Active * Because of a physical, mental, or emotional condition, do you have difficulty doing errands alone such as visiting a doctor's office or shopping? Answer Date of Assessment Author Status Yes 04/10/2021 6:08 PM Olivia Watson R N Active documented as of this [...] from hospital General No Sara Lopez RN documented as of this encounter Visit Diagnoses Not on filedocumented in this encounter Care Teams Candy Bar Attendant Relationship Specialty Start Date End Date Jasson Cueva MD [address] [place] [phone] PCP - General FAMILY PRACTICE 11/03/18 Huber Milligan MD [address] [place] [phone] Consulting Physician Vascular Neurology 04/30/19 Norm Hopkins MD [address] [place] [phone] Consulting Physician CLINICAL CARDIAC ELECTROPHYSIOLOGY 04/30/19 documented as of this encounter
--- OUTSIDE RECORDS SUMMARY | 2024-03-19 18:39 | XMS_ITS | Encounter Summary ---
Author Organization [facility] Address [address] [place] [address]. [place] [address] [place] [address] Care Team Providers Care Code Enforcement Inspector Name Role Phone Jasson Cueva MD Primary Care Provider [phone] Huber Milligan MD Unavailable [phone] Norm Hopkins MD Unavailable [phone] Reason for Visit * Reason Onset Date Comments Post-hospital Follow-up 01/18/2021 Encounter Details Date Type Department Care Team (Late st Contact Info) Description 01/18/2021 Telephone [facility] [address] [place] [address] Ismael Stephens MD [address] [place] [address] Post-hospital Follow-up Social History Tobacco Use Types Packs/Day Years Used Date Smoking Tobacco: Former Cigarettes Smokeless Tobacco: Never Alcohol Use Standard Drinks/Week Comments Not Currently 0 (1 standard drink = 0.6 oz pur e alcohol) Comments No Sex and Gender Information Value Date Recorded Sex Assigned at Not on file Legal 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 CAFE ATTENDANT Gender Identity Not on file Sexual Orientation Not on file COVID-19 Exposure Response Date Recorded In the last month, have you been in contact with someone who was confirmed or suspected to have Coronavirus / COVID-19? No / Unsure 01/12/2021 12:21 PM CDT documented as of this encounter Functional Status * RETIRED Are you deaf or do you have serious difficulty hearing Answer Date of Assessment Author Status No 01/12/2021 3:33 PM CDT Activ e * RETIRED Are you blind or do you have serious difficulty seeing, even when wearing glasses? Answer Date of Assessment Author Status No 01/12/2021 3:33 PM CDT Activ e * Do you have serious difficulty walking or climbing stairs? Answer Date of Assessment Author Status No 01/12/2021 3:33 PM CDT Bne Ayoub RN Active * Do you have difficulty dressing or bathing? Answer Date of Assessment Author Status No 01/12/2021 3:33 PM CDT Ben Ayoub RN Active * Because of a physical, mental, or emotional condition, do you have difficulty doing errands alone such as visiting a doctor's office or shopping? Answer Date of Assessment Author Status No 01/12/2021 3:33 PM CDT Ben Ayoub RN Active documented as of this encounter Mental Status * Because of a physical, mental, or emotional condition, do you have serious difficulty concentrating, remembering, or making decisions? Answer Entry Date Author Status No 01/12/2021 3:33 PM CDT Ben Ayoub RN Active documented in this encounter Progress Notes * Amy Santillan - 01/19/2021 11:52 AM CDT Attempted to contact pt to schedule 1 mo hosp f/u with Sindy Izquierdo on 02/15/21 or later. Return call requested. * Tuan Chadwick RN - 01/18/2021 10:20 AM CDT Pt d/c from [facility] on 01/14, she will need post-hosp cardiac follow up. documented in this encounter Plan of Treatment Not on file documented as of this encounter Visit Diagnoses Not on filedocumented in this encounter Care Teams Code Enforcement Inspector Relationship Specialty Start Date End Date Jasson Cueva MD [address] [place] [phone] PCP - General FAMILY PRACTICE 11/03/18 Huber Milligan MD [address] [place] [phone] Consulting Physician Vascular Neurology 04/30/19 Norm Hopkins MD [address] [place] [phone] Consulting Physician CLINICAL CARDIAC ELECTROPHYSIOLOGY 04/30/19 documented as of this encounter
--- OUTSIDE RECORDS SUMMARY | 2024-03-19 18:39 | XMS_ITS | Encounter Summary ---
Author Organization [facility] Address [address] [place] [address]. [place], [place] [id number] [place] [phone] Care Team Providers Care Scada Technician Name Role Phone Jasson Cueva MD Primary Care Provider [phone] Huber Milligan MD Unavailable [phone] Norm Hopkins MD Unavailable [phone] Reason for Referral * Imaging (Routine) - Closed Specialty Diagnoses / Procedures Referred By Contac t Referred To Contact RADIOLOGY Diagnoses CHF (congestive heart failure) ([facility]) Procedures USE ECHOCARDIOGRAM Lizette Resendiz MD [address] [place] [phone] Phone: tel: fax: Referral ID Status Reason Start Date Expiration Date Visits Re quested Visits Authorized [id number] Closed 11/09/2021 11/09/2022 1 1 Reason for Visit * Imaging (Routine) - Closed Specialty Diagnoses / Procedures Referred By Contac t Referred To Contact RADIOLOGY Diagnoses CHF (congestive heart failure) ([facility]) Procedures USE ECHOCARDIOGRAM Lizette Resendiz MD [address] [place] [phone] Phone: tel: fax: Referral ID Status Reason Start Date Expiration Date Visits Re quested Visits Authorized [id number] Closed 11/09/2021 11/09/2022 1 1 Encounter Details Date Type Department Care Team (Late st Contact Info) Description 11/16/2021 1:04 PM CDT - 11/16/2021 11:59 PM CDT Hospital Encounter [facility] [address] [place] [address] Lizette Resendiz MD [address] [place] [phone] Discharge Disposition: Home or Self Care (Routine Discharge) Social History Tobacco Use Types Packs/Day Years Used Date Smoking Tobacco: Former Cigarettes Smokeless Tobacco: Never Alcohol Use Standard Drinks/Week Comments Not Currently 0 (1 standard drink = 0.6 oz pur e alcohol) Comments No Sex and Gender Information Value Date Recorded Sex Assigned at Not on file Legal 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 FACILITY OPERATIONS MANAGER Gender Identity Not on file Sexual Orientation [...] Assessment Author Status No 04/10/2021 6:08 PM FACILITY OPERATIONS MANAGER Activ e * RETIRED Are you blind or do you have serious difficulty seeing, even when wearing glasses? Answer Date of Assessment Author Status No 04/10/2021 6:08 PM FACILITY OPERATIONS MANAGER Activ e * Do you have serious difficulty walking or climbing stairs? Answer Date of Assessment Author Status No 04/10/2021 6:08 PM FACILITY OPERATIONS MANAGER Olivia Kaba R N Active * Do you have difficulty dressing or bathing? Answer Date of Assessment Author Status No 04/10/2021 6:08 PM FACILITY OPERATIONS MANAGER Olivia Kaba R N Active * Because of a physical, mental, or emotional condition, do you have difficulty doing errands alone such as visiting a doctor's office or shopping? Answer Date of Assessment Author Status Yes 04/10/2021 6:08 PM FACILITY OPERATIONS MANAGER Olivia Kaba R N Active documented as [...] (six) hours as needed for Wheezing. 2 furosemide 20 MG tablet 20 mg. Take Sunday and sunday01/10/2021 2 gabapentin 600 MG tabletIndication s:Neuropathic pain Take 1 tablet (600 mg total) by mouth in the morning and 1 tablet (600 mg total) in the evening and 1 tablet (600 mg total) before bedtime. 90 tablet 3 08/11/2021 2 metoprolol succinate ER 50 MG 24 hr tablet Take 1 tablet (50 mg total) by mouth daily. 2 11/08/2018 3 documented as of this encounter Plan of Treatment Not on file documented as of this encounter Goals Goal Patient Goal Type Associated Problems Recent Progress Patient-Stated? Author Patient will return to prior living situation and remain independent in ADLs upon discharge from hospital General Sara Evans RN documented as of this encounter Procedures Procedure Name Priority Date/Time Associated Diagnosis Comments USE ECHOCARDIOGRAM Routine 11/16/2021 2:00 PM CDT CHF (congestive heart failure) ([facility]) documented in this encounter Results * USE ECHOCARDIOGRAM (11/16/2021 2:00 PM CDT) Anatomical Region Laterality Modality Cardiac Ultrasound us Lizette Resendiz MD ECHO Final Resu lt documented in this encounter Visit Diagnoses Diagnosis CHF (congestive heart failure) ([facility]) Congestive heart failure, unspecified documented in this encounter Care Teams Scada Technician Relationship Specialty Start Date End Date Jasson Cueva MD [address] [place] [phone] PCP - General FAMILY PRACTICE 11/03/18 Huber Milligan MD [address] [place] [phone] Consulting Physician Vascular Neurology 04/30/19 Norm Hopkins MD [address] [place] [phone] Consulting Physician CLINICAL CARDIAC ELECTROPHYSIOLOGY 04/30/19 documented as of this encounter
--- OUTSIDE RECORDS SUMMARY | 2024-03-19 18:39 | XMS_ITS | Encounter Summary ---
Author Organization [facility] Address [address] [place] [address]. [place], [place] [id number] [place] [id number] Care Team Providers Care Asset Protection Professional Name Role Phone Jasson Cueva MD Primary Care Provider Huber Milligan MD Unavailable [phone] Norm Hopkins MD Unavailable [phone] Reason for Visit * Reason Comments Shortness Of Breath Encounter Details Date Type Department Care Team (Late st Contact Info) Description 01/12/2021 10:55 AM CDT - 01/12/2021 1:56 PM CDT Emergency [facility] [address] [place] [address] [place] [address] Gabriella Reddy MD [address] [place] [id number] Shortness Of Breath Discharge Disposition: Transfer to Acute Care Hospital Social History Tobacco Use Types Packs/Day Years Used Date Smoking Tobacco: Former Cigarettes Smokeless Tobacco: Never Alcohol Use Standard Drinks/Week Comments Not Currently 0 (1 standard drink = 0.6 oz pur e alcohol) Comments No Sex and Gender Information Value Date Recorded Sex Assigned at Not on file 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 No / Unsure 01/12/2021 12:21 PM CDT documented as of this encounter Last Filed Vital Signs Vital Sign Reading Time Taken Comments Blood Pressure 172/86 01/12/2021 1:30 PM CDT Pulse 58 01/12/2021 1:30 PM CDT Temperature 36.2 ??C (97.2 ??F) 01/12/2021 11:01 AM C DT Respiratory Rate 17 01/12/2021 1:30 PM CDT Oxygen Saturation 91% 01/12/2021 1:30 PM CDT Inhaled Oxygen Concentration - - Weight 72.6 kg (160 lb) 01/12/2021 11:01 AM CDT Height 170.2 cm (5' 7 ) 01/12/2021 11:01 AM CDT Body Mass Index 25.06 01/12/2021 11:01 AM CDT documented in this encounter Functional [...] PM CDT Ben Ayoub RN Active * Do you have [...] Ayoub RN Active documented in this encounter Medications at Time of Discharge amLODIPine 5 MG tablet 1 tablet (5 mg total) daily. 12/21/2020 aspirin EC 81 MG tablet Take 1 tablet (81 mg total) by mouth daily. vitamin D3, cholecalciferol, 5000 UNITS capsule Take 1 capsule (125 mcg total) by mouth daily. albuterol sulfate HFA 108 (90 Base) MCG/ACT inhaler 01/10/2021 2 furosemide 20 MG tablet 20 mg. Take Sunday and sunday01/10/2021 2 GABAPENTIN 600 MG tabletIndication s:Neuropathic pain TAKE ONE TABLET BY MOUTH THREE TIMES DAILY. 90 tablet 4 07/02/2020 1 meloxicam 15 MG tablet 03/25/2020 2 metoprolol succinate ER 50 MG 24 hr tablet Take 1 tablet (50 mg total) by mouth daily. 2 11/08/2018 3 predniSONE 20 MG tablet Take 2 tablets (40 mg total) by mouth daily for 4 days. 8 tablet 01/15/2021 1 traMADol 50 MG tablet 03/10/2020 2 documented as of this encounter ED Notes * Suzy Marin RN - 01/12/2021 1:48 PM CDT Catherine FAYE at bedside for transfer * Mattie Joe RN - 01/12/2021 12:09 PM CDT Speaking to connect * Mattie Joe RN - 01/12/2021 10:55 AM CDT Arrives with son, states her home health nurse had her come in to be seen, She has had been confused this am, but resolved. Son states that it is baseline, states she has been more short of breath since Sunday, today it has progressed to difficulty breathing with walking. Reports a cough, denies fever. Seen her PCP Sunday, and is to have out pt testing soon. * Gabriella Reddy MD - 01/12/2021 10:53 AM CDT eMERGENCY dEPARTMENT eNCOUnter CHIEF COMPLAINT Chief Complaint Patient presents with ??? Shortness Of Breath HPI HPI Alayna Lawrence is a 70-year-old female who presents to the ER with a complaint of shortness of breath. Patient's been having difficulty breathing for the last several days. She was seen at her primary care office on Sunday started on albuterol metered-dose inhaler but has had some difficulty usingthe inhaler in terms of timing the puff with the inspiration. She is a former smoker and her familystates that she has been tentatively diagnosed as having COPD. She supposed be getting an echocardiogram and pulmonary function test. She has been coughing occasionally not bringing up much sputum. Apparently home health nurse today saw her and recommended she come to the emergency department for further evaluation. ALLERGIES No Known Allergies CURRENT MEDICATIONS Current Outpatient Medications Medication Sig ??? albuterol sulfate HFA 108 (90 Base) MCG/ACT inhaler ??? amlodipine 10 MG tablet Take 10 mg by mouth daily. ??? amLODIPine 5 MG tablet ??? aspirin EC 81 MG tablet Take 81 mg by mouth daily. ??? furosemide 20 MG tablet ??? GABAPENTIN 600 MG tablet TAKE ONE TABLET BY MOUTH THREE TIMES DAILY. ??? meloxicam 15 MG tablet ??? metoprolol succinate ER 50 MG 24 hr tablet Take 50 mg by mouth daily. ??? metoprolol tartrate 50 MG tablet ??? traMADol 50 MG tablet ??? vitamin D3, cholecalciferol, 5000 UNITS capsule Take 1 capsule by mouth daily. PAST MEDICAL HISTORY Past Medical History: Diagnosis Date ??? Depression ??? Displaced fracture of proximal end of right humerus 11/06/2018 ??? Hypertension ??? Ischemic stroke (CMS/HCC) SURGICAL HISTORY Past Surgical History: Procedure Laterality Date ??? JOINT REPLACEMENT ??? SHOULDER SURGERY ??? TOTAL HIP ARTHROPLASTY bilateral SOCIAL HISTORY Social History Socioeconomic History ??? Marital status: Spouse name: Not on file ??? Number of children: Not on file ??? Years of education: Not on file ??? Highest education level: Not on file Occupational History ??? Not on file Tobacco Use ??? Smoking status: Former Smoker Packs/day: 1.00 Types: Cigarettes ??? Smokeless tobacco: Never Used Substance and Sexual Activity ??? Alcohol use: Not Currently ??? Drug use: No ??? Sexual activity: Not on file Other Topics Concern ??? Exercise Not Asked ??? Special Diet Not Asked ??? Caffeine Concern Not Asked Social History Narrative ??? Not on file Social Determinants of Health Financial Resource Strain: ??? Difficulty of Paying Living Expenses: Food Insecurity: ??? Worried About Running Out of Food in the Last Year: ??? Ran Out of Food in the Last Year: Transportation Needs: ??? Lack of Transportation (Medical): ??? Lack of Transportation (Non-Medical): Physical Activity: ??? Days of Exercise per Week: ??? Minutes of Exercise per Session: Stress: ??? Feeling of Stress : Social Connections: ??? Frequency of Communication with Friends and Family: ??? Frequency of Social Gatherings with Friends and Family: ??? Attends Zoroastrianism Services: ??? Active Member of Clubs or Organizations: ??? Attends Club or Organization Meetings: ??? Marital Status: Intimate Partner Violence: ??? Fear of Current or Ex-Partner: ??? Emotionally Abused: ??? Physically Abused: ??? Sexually Abused: FAMILY HISTORY Family History Problem Relation Name Age of Onset ??? Heart Attack Mother REVIEW OF SYSTEMS Review of Systems All other ROS negative unless noted above in HPI. PHYSICAL EXAM Physical Exam Filed Vitals: 01/12/21 1115 01/12/21 1121 01/12/21 1130 01/12/21 1145 BP: 134/81 146/88 Pulse: 70 62 59 Resp: 16 20 16 Temp: TempSrc: SpO2: 94% 97% 100% 98% Weight: Height: The patient is a well developed and well nourished adult female in minimal respiratory distress, alert and oriented. HEENT: PERRL, EOMI Nose without drainage Throat without lesions, mucous membranes moist NECK: Supple without adenopathy or rigidity CHEST: Lungs no tachypnea but mild diffuse wheezing is noted Heart regular rate and rhythm without murmur ABD: Soft, NABS, non tender EXT: No clubbing, cyanosis, edema NEURO: CN II-XII intact, no focal weakness SKIN: No rash or significant lesions EKG EKG shows normal sinus rhythm no obvious ischemic changes as compared to previous RADIOLOGY XR CHEST PORTABLE Final Result by User, [id number] (01/12 0820) Examination: Portable chest. Exam time: 1134 hours. Clinical history: Dyspnea. Confusion. Comparison: 10/18/2020. Technique: AP upright view. Findings: Allowing for differences in projection and rotation, the cardiomediastinal silhouette is stable. Allowing for projection, the heart size is normal. Pulmonary vascularity is within normal limits. There is minimal platelike subsegmental atelectasis at the right base. No focal infiltrates or effusions are identified. The visualized bony thorax is stable. Right shoulder arthroplasty again evident. Implanted loop recorder remains in place. IMPRESSION: Minimal right basal subsegmental atelectasis. Otherwise clear. Referred By: GABRIELLA REDDY Interpreted By: Jacky Saul MD, 01/12/2021 11:55 AM LABS Results for orders placed or performed during the hospital encounter of 01/12/21 CBC W/DIFF AUTOMATED Result Value Ref Range WBC 6.8 4.0 - 10.8 x10'3/uL RBC 4.43 4.10 - 5.40 x10'6/uL HGB 13.4 12.0 - 16.0 G/DL HCT 42.9 36.0 - 47.0 % MCV 96.8 78.0 - 100.0 FL MCH 30.2 27.0 - 31.0 PG MCHC 31.2 (L) 33.0 - 36.0 G/DL RDW 13.5 11.5 - 14.5 % PLT 231 150 - 350 x10'3/uL MPV 10.2 7.4 - 10.4 FL Differential Comment NORMAL REFERENCE RANGE NOT ESTABLISHED FOR THE PROPORTIONAL LEUKOCYTE DIFFERENTIAL. SEG NEUTROPHILS 73.7 % LYMPHOCYTES 15.6 % MONOCYTES 6.9 % EOSINOPHILS 2.8 % BASOPHILS 0.7 % IMMATURE GRANS 0.3 % NRBC 0.0 % ABS. NEUTROPHILS 4.99 1.60 - 8.30 x10'3/uL ABS. LYMPHOCYTES 1.06 0.80 - 4.70 x10'3/uL ABS. MONOCYTES 0.47 0.00 - 1.50 x10'3/uL ABS. EOSINOPHILS 0.19 0.00 - 0.40 x10'3/uL ABS. BASOPHILS 0.05 0.00 - 0.20 x10'3/uL ABS. IMMATURE GRANULOCYTES 0.02 0.00 - 0.03 x10'3/uL ABS. NUCLEATED RBC'S 0.00 0.00 x10'3/uL COMPREHENSIVE METABOLIC PANEL Result Value Ref Range SODIUM 143 136 - 145 MMOL/L POTASSIUM 4.6 3.5 - 5.1 MMOL/L CHLORIDE S/P/B 110 (H) 98 - 107 MMOL/L CO2 24.8 21.0 - 32.0 MMOL/L GLUCOSE 108 (H) 70 - 99 MG/DL BUN 40 (H) 6 - 24 MG/DL CREATININE S/P/B 2.11 (H) 0.55 - 1.02 MG/DL CALCIUM 8.8 8.4 - 10.5 MG/DL BILIRUBIN TOTAL S/P/B 0.3 0.2 - 1.0 MG/DL ALKALINE PHOSPHATASE S/P/B 88 55 - 142 U/L AST 11 (L) 15 - 37 U/L ALT 12 (L) 14 - 59 U/L TOTAL PROTEIN S/P/B 6.9 6.4 - 8.2 G/DL ALBUMIN S/P/B 3.3 (L) 3.4 - 5.0 G/DL ANION GAP 8.2 5.0 - 15.0 MMOL/L OSMOLALITY (CALC) 306 MOSM/KG eGFR Non-Afr. Amer. 23 (L) >89 ML/MIN/1.73 M2 eGFR Afr. Amer. 27 (L) >89 ML/MIN/1.73 M2 GFR NOTES GFR REFERENCES: TROPONIN, QUANT Result Value Ref Range TROPONIN I 307 (HH) 0 - 51 ng/L PRO-BRAIN NATRIURETIC PEPTIDE Result Value Ref Range Pro-B TYPE NATRIURETIC PEPTIDE 881 (H) <125 PG/ML ED MEDICATIONS Medications ipratropium-albuterol (DUONEB) 0.5-2.5 (3) MG/3ML nebulizer solution 3 mL (3 mLs Nebulization Given01/12/21 1121) PROCEDURES Procedures CONSULTS: ED COURSE & MEDICAL DECISION MAKING MDM Work-up shows chronic kidney disease but elevated BNP and troponin. I discussed the case with Dr. Stephens the on-call pilot captain [facility] [place] recommends transfer to their facility for further evaluation. The patient was accepted onto the hospitalist service under Dr. Marquez. We will hold off on any further anticoagulation until we can sort out the etiology of the elevated troponin. Patient stable for transfer. FINAL IMPRESSION SNOMED CT(R) 1. Non-STEMI (non-ST elevated myocardial infarction) (CMS/HCC) MYOCARDIAL INFARCTION 2. CKD (chronic kidney disease) CHRONIC KIDNEY DISEASE No follow-up provider specified. New Prescriptions No medications on file Gabriella Reddy MD 01/12/21 1238 documented in this encounter Plan of Treatment Not on file documented as of this encounter Procedures Procedure Name Priority Date/Time Associated Diagnosis Comments CORONAVIRUS (COVID-19) ANTIGEN DIRECT OPTICAL STAT 01/12/2021 1:35 PM CDT XR CHEST PORTABLE STAT 01/12/2021 11: 48 AM CDT HEPARIN, ANTI XA, UFH STAT 01/12/2021 11:20 AM CDT PRO-BRAIN NATRIURETIC PEPTIDE STAT 01/12/2021 11:20 AM CDT PROTHROMBIN TIME, VENOUS STAT 01/12/2021 11:20 AM CDT COMPREHENSIVE METABOLIC PANEL STAT 01/12/2021 11:20 AM CDT CBC W/DIFF AUTOMATED STAT 01/12/2021 11:20 AM CDT TROPONIN, QUANT STAT 01/12/2021 11:20 AM CDT ECG 12-LEAD Routine 01/12/2021 10:59 AM CDT documented in this encounter Results * CORONAVIRUS (COVID-19) ANTIGEN DIRECT OPTICAL (01/12/2021 1:35 PM CDT) Pathologist [facility] CORONAVIRUS ANTIGEN IA NEGATIVE NEGATIVE 01/12/2021 1:55 PM CDT [facility] Comment: NEGATIVE RESULTS DO NOT RULE [...] USE BY AUTHORIZED LABORATORIES. SPECIMEN TYPE NASAL 01/12/2021 1:35 PM CDT [facility] FIRST TEST NO 01/12/2021 1:35 PM CDT [facility] EMPLOYED IN HEALTHCARE NO 01/12/2021 1:35 PM CDT [facility] SYMPTOMATIC DEFINED BY CDC YES 01/12/2021 1:35 PM CDT [facility] DATE OF SYMPTOM ONSET 2021011201/12/2021 1:35 PM CDT [facility] HOSPITALIZATION STATUS NO 01/12/2021 1:35 PM CDT [facility] RESIDENT OF [facility] NO 01/12/2021 1:35 PM CDT [facility] Specimen from nose (specimen) NASAL STRUCTURE / Unknown 01/12/2021 1:35 PM CDT Gabriella Reddy MD MICROBIOLOGY - GENERAL ORDERA BLES Final Result [facility] [address] [place] [address], * XR CHEST PORTABLE (01/12/2021 11:48 AM CDT) Anatomical Region Laterality Modality Chest Radiographic Sharon ging 01/12/2021 11:5 5 AM CDT Impressions 01/12/2021 11:57 AM CDT IMPRESSION: Minimal right basal subsegmental atelectasis. Otherwise clear. Referred By: GABRIELLA REDDY Interpreted By: Jacky Saul MD, 01/12/2021 11:55 AM Narrative 01/12/2021 11:57 AM CDT Examination: Portable chest. Exam time: 1134 hours. Clinical history: Dyspnea. Confusion. Comparison: 10/18/2020. Technique: ??AP ??upright view. Findings: Allowing for differences in projection and rotation, the cardiomediastinal silhouette is stable. Allowing for projection, the heart size is normal. Pulmonary vascularity is within normal limits. There is minimal platelike subsegmental atelectasis at the right base. No focal infiltrates or effusions are identified. The visualized bony thorax is stable. Right shoulder arthroplasty again evident. Implanted loop recorder remains in place. Procedure Note Jacky Saul MD - 01/12/2021 Examination: Portable chest. Exam time: 1134 hours. Clinical history: Dyspnea. Confusion. Comparison: 10/18/2020. Technique: AP upright view. Findings: Allowing for differences in projection and rotation, thecardiomediastinal silhouette is stable. Allowing for projection, the heartsize is normal. Pulmonary vascularity is within normal limits. There isminimal platelike subsegmental atelectasis at the right base. No focalinfiltrates or effusions are identified. The visualized bony thorax isstable. Right shoulder arthroplasty again evident. Implanted loop recorderremains in place. IMPRESSION: Minimal right basal subsegmental atelectasis. Otherwise clear. Referred By: GABRIELLA REDDY Interpreted By: Jacky Saul MD, 01/12/2021 11:55 AM us Gabriella Reddy MD GENERAL IMAGING Final Result * PROTIME/INR, VENOUS (01/12/2021 11:20 AM CDT) PROTIME 11.3 10.2 - 12.9 SEC 01/12/2021 12:51 PM CDT [facility] INR 0.9 0.9 - 1.1 01/12/2021 12:51 PM CDT [facility] 01/12/2021 11:2 0 AM CDT us Gabriella Reddy MD LABORATORY Final Result [facility] [address] [place] [id number], * (ABNORMAL) HEPARIN, ANTI XA, UFH (01/12/2021 11:20 AM CDT) HEPARIN ANTI XA UFH <0.04(L) 0.30 - 0.70 IU/ML 01/12/2021 12:51 PM CDT [facility] 01/12/2021 11:2 0 AM CDT us Gabriella Reddy MD LABORATORY Final Result Performing Organization Address [facility] Co de Phone Number [facility] [address] [place] [address], * (ABNORMAL) PRO-BRAIN NATRIURETIC PEPTIDE (01/12/2021 11:20 AM CDT) PRO-B TYPE NATRIURETIC PEPTIDE 881(H) <125 PG/ML 01/12/2021 11:53 AM CDT [facility] Comment: CUT POINTS ESTABLISHED BY INTERNATIONAL [...] OF 89% AND 72% FOR ACUTE CHF. 01/12/2021 11:2 0 AM CDT us Gabriella Reddy MD LABORATORY Final Result Performing Organization Address City/[facility]/ZIP Co de Phone Number [facility] [address] [place] [address], [place] [phone] * (ABNORMAL) TROPONIN, QUANT (01/12/2021 11:20 AM CDT) [facility] TROPONIN I 307(HH) 0 - 51 ng/L 01/12/2021 11:53 AM CDT [facility] Comment: Critical Result(s) Called to and read back by: JHONY ?? at: 11:52:24 ??01/12/2021 by EKDK. 01/12/2021 11:2 0 AM CDT us Gabriella Reddy MD LABORATORY Final Result [facility] [address] [place] [address], * (ABNORMAL) COMPREHENSIVE METABOLIC PANEL (01/12/2021 11:20 AM CDT) [facility] SODIUM S/P/B 143 136 - 145 MMOL/L 01/12/2021 11:53 AM CDT [facility] POTASSIUM S/P/B 4.6 3.5 - 5.1 MMOL/L 01/12/2021 11:53 AM CDT [facility] CHLORIDE S/P/B 110(H) 98 - 107 MMOL/L 01/12/2021 11:53 AM CDT [facility] CO2 24.8 21.0 - 32.0 MMOL/L 01/12/2021 11:53 AM CDT [facility] GLUCOSE 108(H) 70 - 99 MG/DL 01/12/2021 11:53 AM CDT [facility] Comment: FASTING GLUCOSE 100 TO 125 MG/DL IS CONSISTENT WITH IMPAIRED FASTING GLUCOSE. FASTING GLUCOSE >125 MG/DL IS CONSISTENT WITH DIABETES. RANDOM GLUCOSE >200 MG/DL WITH HYPERGLYCEMIC SYMPTOMS IS CONSISTENT WITH DIABETES. PER ADA GUIDELINES BUN 40(H) 6 - 24 MG/DL 01/12/2021 11:53 AM CDT [facility] CREATININE S/P/B 2.11(H) 0.55 - 1.02 MG/DL 01/12/2021 11:53 AM T [facility] CALCIUM S/P/B 8.8 8.4 - 10.5 MG/DL 01/12/2021 11:53 AM [facility] BILIRUBIN TOTAL S/P/B 0.3 0.2 - 1.0 MG/DL 01/12/2021 11:53 AM T [facility] Comment: THIS ASSAY IS NOT RECOMMENDED FOR PATIENTS UNDERGOING TREATMENT WITH ELTROMBOPAG DUE TO THE POTENTIAL FOR FALSELY ELEVATED RESULTS. ALKALINE PHOSPHATASE S/P/B 88 55 - 142 U/L 01/12/2021 11:53 AM T [facility] AST 11(L) 15 - 37 U/L 01/12/2021 11:53 AM [facility] ALT 12(L) 14 - 59 U/L 01/12/2021 11:53 AM T [facility] TOTAL PROTEIN S/P/B 6.9 6.4 - 8.2 G/DL 01/12/2021 11:53 AM T [facility] ALBUMIN S/P/B 3.3(L) 3.4 - 5.0 G/DL 01/12/2021 11:53 AM T [facility] ANION GAP 8.2 5.0 - 15.0 MMOL/L 01/12/2021 11:53 AM [facility] OSMOLALITY (CALC) 306 MOSM/KG 021 11:53 AM T [facility] Comment:REFERENCE RANGE NOT ESTABLISHED EGFR NON-AFR. AMER. 23(L) >89 ML/MIN/1. 73 M2 01/12/2021 11:53 AM T [facility] EGFR AFR. AMER. 27(L) >89 ML/MIN/1. 73 M2 01/12/2021 11:53 AM [facility] GFR NOTES GFR REFERENCE S: 01/12/2021 11:53 AM [facility] Comment: THE ESTIMATED GFR IS [...] ml/min/1.73 m2 G5,KIDNEY FAILURE: <15 ml/min/1.73 m2 01/12/2021 11:2 0 AM CDT us Gabriella Reddy MD LABORATORY Final Result [facility] [address] [place] [address], * (ABNORMAL) CBC W/DIFF AUTOMATED (01/12/2021 11:20 AM CDT) WBC 6.8 4.0 - 10.8 x10'3/uL 01/12/2021 11:25 AM CDT [facility] RBC 4.43 4.10 - 5.40 x10'6/uL 01/12/2021 11:25 AM CDT [facility] HGB 13.4 12.0 - 16.0 G/DL 01/12/2021 11:25 AM CDT [facility] HCT 42.9 36.0 - 47.0 % 01/12/2021 11:25 AM CDT [facility] MCV 96.8 78.0 - 100.0 FL 01/12/2021 11:25 AM CDT [facility] MCH 30.2 27.0 - 31.0 PG 01/12/2021 11:25 AM CDT [facility] MCHC 31.2(L) 33.0 - 36.0 G/DL 01/12/2021 11:25 AM CDT [facility] RDW 13.5 11.5 - 14.5 % 01/12/2021 11:25 AM CDT [facility] PLT 231 150 - 350 x10'3/uL 01/12/2021 11:25 AM CDT [facility] MPV 10.2 7.4 - 10.4 FL 01/12/2021 11:25 AM CDT [facility] DIFFERENTIAL COMMENT NORMAL REFERENCE RANGE NOT ESTABLISHED FOR THE PROPORTIONAL LEUKOCYTE DIFFERENTIAL. 01/12/2021 11:25 AM CDT [facility] SEG NEUTROPHILS 73.7 % 11:25 AM CDT [facility] LYMPHOCYTES 15.6 % 01/12/2021 11:25 AM CDT [facility] MONOCYTES 6.9 % 01/12/2021 11:25 AM CDT [facility] EOSINOPHILS 2.8 % 01/12/2021 11:25 AM CDT [facility] BASOPHILS 0.7 % 01/12/2021 11:25 AM CDT [facility] IMMATURE GRANS % 0.3 % 01/13/20 11:25 AM CDT [facility] NRBC 0.0 % 01/12/2021 11:25 AM CDT [facility] ABS. NEUTROPHILS 4.99 1.60 - 8.30 x10'3/uL 01/12/2021 11:25 AM CDT [facility] ABS. LYMPHOCYTES 1.06 0.80 - 4.70 x10'3/uL 01/12/2021 11:25 AM CDT [facility] ABS. MONOCYTES 0.47 0.00 - 1.50 x10'3/uL 01/12/2021 11:25 AM CDT [facility] ABS. EOSINOPHILS 0.19 0.00 - 0.40 x10'3/uL 01/12/2021 11:25 AM CDT [facility] ABS. BASOPHILS 0.05 0.00 - 0.20 x10'3/uL 01/12/2021 11:25 AM CDT [facility] ABS. IMMATURE GRANULOCYTES 0.02 0.00 - 0.03 x10'3/uL 01/12/2021 11:25 AM CDT [facility] ABS. NUCLEATED RBC'S 0.00 0.00 x10'3/uL 01/12/2021 11:25 AM CDT [facility] 01/12/2021 11:2 0 AM CDT us Gabriella Reddy MD LABORATORY Final Result [facility] [address] [place] [address], * ECG 12 lead (01/12/2021 10:59 AM CDT) 01/12/2021 10:5 9 AM CDT Narrative [facility] - 01/13/2021 9:02 AM CDT ? [facility] ?[address] [place], [place] ??[address] ? Test Date: ?2021-01-12 Pat Name: ? ALAYNACRUZ LAWRENCE ?Department: ? Room: ? Gender: ? Female ? 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 : ?1950 ? Requested By: GABRIELLA REDDY Order Number: [id number] ? Reading : ?? Pattie Elias ? Measurements Intervals ?[place] ? Rate: ? 65 ? P: ?19 VT: ? 159 ?QRS: ?119 QRSD: ? 87 ? T: ?-6 QT: ? 403 ? QTc: ?420 ? Interpretive Statements SINUS RHYTHM POSSIBLE RIGHT VENTRICULAR HYPERTROPHY ?? LATERAL MYOCARDIAL INFARCTION , OF INDETERMINATE AGE [40+ ms Q WAVE AND/OR ST/T ABNORMALITY IN I/aVL/V5/V6] T WAVES ABNORMALITY IN INFERIOR LEADS, CONSIDER ISCHEMIA Procedure Note Pattie Elias MD - 01/13/[address] 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: : 1950 Requested By: GABRIELLA REDDY Order Number: [id number] Tae MD: Pattie Elias Measurements Intervals [place] Rate: 65 P: 19 VT: 159 QRS: 119 QRSD: 87 T: -6 QT: 403 QTc: 420 Interpretive Statements SINUS RHYTHM POSSIBLE RIGHT VENTRICULAR HYPERTROPHY LATERAL MYOCARDIAL INFARCTION , OF INDETERMINATE AGE [40+ ms Q WAVEAND/OR ST/T ABNORMALITY IN I/aVL/V5/V6] T WAVES ABNORMALITY IN INFERIOR LEADS, CONSIDER ISCHEMIA us Gabriella Reddy MD ECG ORDERABLES Final Result [facility] documented in this encounter Visit Diagnoses Diagnosis Non-STEMI (non-ST elevated myocardial infarction) ([facility])- Primary Acute myocardial infarction, subendocardial infarction, episode of care unspecified CKD (chronic kidney disease) Chronic kidney disease, unspecified documented in this encounter Administered Medications Inactive Administered Medications - up to 3 most recent administrations Medication Order MAR Action Action Date Dose Rate Site ipratropium-albuterol (DUONEB) 0.5-2.5 (3) MG/3ML nebulizer solution 3 mL 3 mL, Nebulization, Once, 1 dose, On Sun01/12/21 at 1115 Given 01/12/2021 11:21 AM CDT 3 mLs documented in this encounter Active and Recently Administered Medications Times are shown in CDT. Scheduled Medication Order 01/10/2021 01/11/2021 01/12/2021 ipratropium-albuterol (DUONEB) 0.5-2.5 (3) MG/3ML nebulizer solution 3 mL (COMPLETED) 3 mL, Nebulization, Once, 1 dose, On Sun01/12/21 at 1115 1121 (Given - Provid er: Ethel Estrada, TRACTOR TECHNICIAN) documented in this encounter Additional Health Concerns Infection Onset Date Last Indicated Resolved Time COVID-19 Rule Out 01/12/2021 01/12/2021 01/12/2021 1:55 PM CDT documented as of this encounter Care Teams Asset Protection Professional Relationship Specialty Start Date End Date Jasson Cueva MD [address] [place] [phone] PCP - General FAMILY PRACTICE 11/03/18 Huber Milligan MD [address] [place] [phone] Consulting Physician Vascular Neurology 04/30/19 Norm Hopkins MD [address] [place] [address] Consulting Physician CLINICAL CARDIAC ELECTROPHYSIOLOGY 04/30/19 documented as of this encounter
--- OUTSIDE RECORDS SUMMARY | 2024-03-19 18:39 | XMS_ITS | Encounter Summary ---
Author Organization [facility] Address [address] [place] [address]. [place] [address] [place] [address] Care Team Providers Care Flight Agent Name Role Phone Jasson Cueva MD Primary Care Provider Huber Milligan MD Unavailable [phone] Norm Hopkins MD Unavailable [phone] Reason for Visit * Reason Onset Date Comments Medication 08/11/2021 Encounter Details Date Type Department Care Team (Late st Contact Info) Description 08/11/2021 Telephone [facility] [address] [place] [address] Huber Milligan MD 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 Answer Date of Assessment Author Status No 04/10/2021 6:08 PM MGMT SPECIALIST Activ e * Do you have serious difficulty walking or climbing stairs? Answer Date of Assessment Author Status No 04/10/2021 6:08 PM MGMT SPECIALIST Olivia Kaba R N Active * Do you have difficulty dressing or bathing? Answer Date of Assessment Author Status No 04/10/2021 6:08 PM MGMT SPECIALIST Olivia Kaba R N Active * Because [...] documented in this encounter Progress Notes * Minnie May RN - 08/11/2021 11:23 AM CDT PDMP reviewed; Gabapentin 600mg tablets TID sent to pharmacy. * Kika Velasco - 08/11/2021 10:12 AM CDT Zack is requesting a refill on his mother's gabapentin. He states she took her last pill yesterday.He states the pharmacy has sent a request and not heard anything back. They would like this to go to [facility]'s pharmacy in [place]. Please advise. documented in this encounter Plan of Treatment Not on file documented as of this encounter Goals Goal Patient Goal Type Associated Problems Recent Progress Patient-Stated? Author Patient will return to prior living situation and remain independent in ADLs upon discharge from hospital General Sara Evans RN documented as of this encounter Visit Diagnoses Diagnosis Neuropathic pain Neuralgia, neuritis, and radiculitis, unspecified documented in this encounter Care Teams Flight Agent Relationship Specialty Start Date End Date Jasson Cueva MD [address] [place] [phone] PCP - General FAMILY PRACTICE 11/03/18 Huber Milligan MD [address] [place] [phone] Consulting Physician Vascular Neurology 04/30/19 Norm Hopkins MD [address] [place] [address] Consulting Physician CLINICAL CARDIAC ELECTROPHYSIOLOGY 04/30/19 documented as of this encounter
--- OUTSIDE RECORDS SUMMARY | 2024-03-19 18:39 | XMS_ITS | Encounter Summary ---
Author Organization [facility] Address [address] [place] [address]. [place], [place] [address] [place] [address] Care Team Providers Care Under Water Assistant Name Role Phone Jasson Cueva MD Primary Care Provider [phone] Huber Milligan MD Unavailable [phone] Norm Hopkins MD Unavailable [phone] Encounter Details Date Type Department Care Team (Latest Contact Info) Description 10/19/2020 Travel Social History Tobacco Use Types Packs/Day Years Used Date Smoking Tobacco: Former Cigarettes Smokeless Tobacco: Never Alcohol Use Standard Drinks/Week Comments Not Currently 0 (1 standard drink = 0.6 oz pur e alcohol) Comments No Sex and Gender Information Value Date Recorded Sex Assigned at Not on file 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 Yes 10/19/2020 12:14 AM Rosemary Cano RN Active * RETIRED Are you deaf [...] 12:14 AM Rosemary Cano RN Active * Do you have difficulty dressing or bathing? Answer Date of Assessment Author Status No 10/19/2020 12:14 AM Rosemary Cano RN Active [...] Cano RN Active documented in this encounter Plan of Treatment Not on file documented as of this encounter Visit Diagnoses Not on filedocumented in this encounter Care Teams Under Water Assistant Relationship Specialty Start Date End Date Jasson Cueva MD [address] [place] [phone] PCP - General FAMILY PRACTICE 11/03/18 Huber Milligan MD [address] [place] [phone] Consulting Physician Vascular Neurology 04/30/19 Norm Hopkins MD [address] [place] [address] Consulting Physician CLINICAL CARDIAC ELECTROPHYSIOLOGY 04/30/19 documented as of this encounter
--- OUTSIDE RECORDS SUMMARY | 2024-03-19 18:39 | XMS_ITS | Encounter Summary ---
Author Organization [facility] Address [address] [place] [address]. [place], [place] [address] [place] [address] Care Team Providers Care Aircraft Navigator Name Role Phone Jasson Cueva MD Primary Care Provider Huber Milligan MD Unavailable [phone] Norm Hopkins MD Unavailable [phone] Encounter Details Date Type Department Care Team (Late st Contact Info) Description 12/20/2021 Orders Only [facility] [address] [place] [address] Jasson Cueva MD [address] [place] [phone] Social History Tobacco Use Types Packs/Day Years Used Date Smoking Tobacco: Former Cigarettes Smokeless Tobacco: Never Alcohol Use Standard Drinks/Week Comments Not Currently 0 (1 standard drink = 0.6 oz pur e alcohol) Comments No Sex and Gender Information Value Date Recorded Sex Assigned at Not on file Legal 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 No 12/21/2021 10:33 PM Sepideh Peralta RN Acti ve * Question Answer Date of Assessment Author Status Do you have difficulty dressing or bathing? No 12/21/2021 10:33 PM Sepideh Peralta RN Active Because of a physical, mental, or emotional condition, do you have difficulty doing errands alone such as visiting a doctor's office or shopping? Yes 12/21/2021 10:33 PM Ana Laura Peralta RN Active * RETIRED Are you deaf or do you have serious difficulty hearing Answer Date of Assessment Author Status No 04/10/2021 6:08 PM TELETYPESETTER MONITOR Activ e * RETIRED Are you blind or do you have serious difficulty seeing, even when wearing glasses? Answer Date of Assessment Author Status No 04/10/2021 6:08 PM TELETYPESETTER MONITOR Activ e * Do you have serious difficulty walking or climbing stairs? Answer Date of Assessment Author Status No 04/10/2021 6:08 PM TELETYPESETTER MONITOR Olivia Kaba R N Active * Do you have difficulty dressing or bathing? Answer Date of Assessment Author Status No 04/10/2021 6:08 PM TELETYPESETTER MONITOR Olivia Kaba R N Active * Because of a physical, mental, or emotional condition, do you have difficulty doing errands alone such as visiting a doctor's office or shopping? Answer Date of Assessment Author Status Yes 04/10/2021 6:08 PM TELETYPESETTER MONITOR Olivia Kaba R N Active documented as of this encounter Mental Status * Question Answer Entry Date Author Status Because of a physical, mental, or emotional condition, do you have serious difficulty concentrating, remembering, or making decisions? Yes 12/21/2021 10:33 PM Sepideh Peralta RN Active * Because of a physical, mental, or emotional condition, do you have serious difficulty concentrating, remembering, or making decisions? Answer Entry Date Author Status Yes 04/10/2021 6:08 PM TELETYPESETTER MONITOR Olivia Kaba R N Active documented in this encounter Plan of Treatment Not on file documented as of this encounter Goals Goal Patient Goal Type Associated Problems Recent Progress Patient-Stated? Author Patient will return to prior living situation and remain independent in ADLs upon discharge from hospital General No Sara Lopez RN Safety ? Patient/family will have appropriate support at home upon discharge Lifestyle No Ashley, Dannielle A, RN documented as of this encounter Results * (ABNORMAL) AST/SGOT (12/20/2021 9:55 AM CDT) AST 13(L) 15 - 37 U/L 12/20/2021 11:27 AM CDT [facility] 12/20/2021 9:55 AM CDT Jasson Cueva MD LABORATORY Final Resul t [facility] [address] [place] [address], * (ABNORMAL) ALBUMIN CREATININE URINE RANDOM (12/20/2021 9:55 AM CDT) ALBUMIN (U) 340.1 MG/DL 12/20/2021 12:58 PM CDT [facility] Comment:REFERENCE RANGE NOT ESTABLISHED CREATININE (U) 218.3 MG/DL 12/20/2021 12:58 PM CDT [facility] Comment:REFERENCE RANGE NOT ESTABLISHED ALBUMIN/CREAT RATIO 1,557.7(H) <30 MG/G 12/20/2021 12:58 PM CDT [facility] Comment: NORMAL TO MILDLY INCREASED ALBUMINURIA: <30 MG/G MODERATELY INCREASED ALBUMINURIA: 30 TO 300 MG/G SEVERELY INCREASED ALBUMINURIA: >300 MG/G PER KDIGO URINE SPECIMEN / Unknown 12/20/2021 9:55 AM CDT us Jasson Cueva MD URINE ORDERABLES Final Resu lt [facility] [address] [place] [address], * (ABNORMAL) BASIC METABOLIC PANEL (12/20/2021 9:55 AM CDT) SODIUM S/P/B 141 136 - 145 MMOL/L 12/20/2021 11:27 AM CDT [facility] POTASSIUM S/P/B 3.9 3.5 - 5.1 MMOL/L 12/20/2021 11:27 AM [facility] CHLORIDE S/P/B 104 98 - 107 MMOL/L 12/20/2021 11:27 AM [facility] CO2 24.1 21.0 - 32.0 MMOL/L 12/20/2021 11:27 AM [facility] GLUCOSE 80 70 - 99 MG/DL 12/20/2021 11:27 AM [facility] Comment: FASTING GLUCOSE 100 TO 125 MG/DL IS CONSISTENT WITH IMPAIRED FASTING GLUCOSE. FASTING GLUCOSE >125 MG/DL IS CONSISTENT WITH DIABETES. RANDOM GLUCOSE >200 MG/DL WITH HYPERGLYCEMIC SYMPTOMS IS CONSISTENT WITH DIABETES. PER ADA GUIDELINES BUN 49(H) 6 - 24 MG/DL 12/20/2021 11:27 AM [facility] CREATININE S/P/B 3.81(H) 0.55 - 1.02 MG/DL 12/20/2021 11:27 AM [facility] CALCIUM S/P/B 9.1 8.4 - 10.5 MG/DL 12/20/2021 11:27 AM [facility] ANION GAP 12.9 5.0 - 15.0 MMOL/L 12/20/2021 11:27 AM [facility] OSMOLALITY (CALC) 304 MOSM/KG 022 11:27 AM [facility] Comment:REFERENCE RANGE NOT ESTABLISHED GFR ESTIMATE 12(L) >89 ML/MIN/1. 73 M2 12/20/2021 11:27 AM [facility] GFR NOTES GFR REFERENCE S: 12/20/2021 11:27 AM [facility] Comment: THE ESTIMATED GFR [...] ml/min/1.73 m2 G5,KIDNEY FAILURE: <15 ml/min/1.73 m2 12/20/2021 9:55 AM CDT us Jasson Cueva MD LABORATORY Final Resul t [facility] [address] [place] [address], * (ABNORMAL) CBC W/DIFF AUTOMATED (12/20/2021 9:55 AM CDT) WBC 10.7 4.0 - 10.8 x10'3/uL 12/20/2021 11:03 AM CDT [facility] RBC 4.48 4.10 - 5.40 x10'6/uL 12/20/2021 11:03 AM CDT [facility] HGB 13.8 12.0 - 16.0 G/DL 12/20/2021 11:03 AM CDT [facility] HCT 43.3 36.0 - 47.0 % 12/20/2021 11:03 AM CDT [facility] MCV 96.7 78.0 - 100.0 FL 12/20/2021 11:03 AM CDT [facility] MCH 30.8 27.0 - 31.0 PG 12/20/2021 11:03 AM CDT [facility] MCHC 31.9(L) 33.0 - 36.0 G/DL 12/20/2021 11:03 AM CDT [facility] RDW 13.7 11.5 - 14.5 % 12/20/2021 11:03 AM CDT [facility] PLT 313 150 - 350 x10'3/uL 12/20/2021 11:03 AM CDT [facility] MPV 10.8(H) 7.4 - 10.4 FL 12/20/2021 11:03 AM CDT [facility] DIFFERENTIAL COMMENT NORMAL REFERENCE RANGE NOT ESTABLISHED FOR THE PROPORTIONAL LEUKOCYTE DIFFERENTIAL. 12/20/2021 11:03 AM CDT [facility] SEG NEUTROPHILS 78.4 % 11:03 AM CDT [facility] LYMPHOCYTES 10.1 % 12/20/2021 11:03 AM CDT [facility] MONOCYTES 9.1 % 12/20/2021 11:03 AM CDT [facility] EOSINOPHILS 1.3 % 12/20/2021 11:03 AM CDT [facility] BASOPHILS 0.8 % 12/20/2021 11:03 AM CDT [facility] IMMATURE GRANS % 0.3 % 12/21/19 11:03 AM CDT [facility] NRBC 0.0 % 12/20/2021 11:03 AM CDT [facility] ABS. NEUTROPHILS 8.36(H) 1.60 - 8.30 x10'3/uL 12/20/2021 11:03 AM CDT [facility] ABS. LYMPHOCYTES 1.08 0.80 - 4.70 x10'3/uL 12/20/2021 11:03 AM CDT [facility] ABS. MONOCYTES 0.97 0.00 - 1.50 x10'3/uL 12/20/2021 11:03 AM CDT [facility] ABS. EOSINOPHILS 0.14 0.00 - 0.40 x10'3/uL 12/20/2021 11:03 AM CDT [facility] ABS. BASOPHILS 0.08 0.00 - 0.20 x10'3/uL 12/20/2021 11:03 AM CDT [facility] ABS. IMMATURE GRANULOCYTES 0.03 0.00 - 0.03 x10'3/uL 12/20/2021 11:03 AM CDT [facility] ABS. NUCLEATED RBC'S 0.00 0.00 x10'3/uL 12/20/2021 11:03 AM T [facility] 12/20/2021 9:55 AM CDT us Jasson Cueva MD LABORATORY Final Resul t [facility] [address] [place] [address], documented in this encounter Visit Diagnoses Diagnosis Hypertensive heart and renal disease with (congestive) heart failure (CMS/HCC HHS/HCC)- Primary Heart failure, unspecified (CMS/HCC HHS/HCC) Heart failure, unspecified Chronic kidney disease, stage 3 unspecified (CMS/[facility] HHS/HCC) documented in this encounter Care Teams Aircraft Navigator Relationship Specialty Start Date End Date Jasson Cueva MD [address] [place] [phone] PCP - General FAMILY PRACTICE 11/03/18 Huber Milligan MD [address] [place] [phone] Consulting Physician Vascular Neurology 04/30/19 Norm Hopkins MD [address] [place] [address] Consulting Physician CLINICAL CARDIAC ELECTROPHYSIOLOGY 04/30/19 documented as of this encounter
--- OUTSIDE RECORDS SUMMARY | 2024-03-19 18:39 | XMS_ITS | Encounter Summary ---
Author Organization [facility] Address [address] [place] [address]. [place], [place] [address] [place] [address] Care Team Providers Care Portable Feed Mill Operator Name Role Phone Jasson Cueva MD Primary Care Provider [phone] Huber Milligan MD Unavailable [phone] Norm Hopkins MD Unavailable [phone] Encounter Details Date Type Department Care Team (Latest Contact Info) Description 12/21/2021 Travel Social History Tobacco Use Types Packs/Day Years Used Date Smoking Tobacco: Former Cigarettes Smokeless Tobacco: Never Alcohol Use Standard Drinks/Week Comments Not Currently 0 (1 standard drink = 0.6 oz pur e alcohol) Comments No Sex and Gender Information Value Date Recorded Sex Assigned at Not on file Legal 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 MEDICAL ART 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 No 12/21/2021 10:33 PM CDT Sepideh Kevin RN Acti ve * Question Answer Date of Assessment Author Status Do you have difficulty dressing or bathing? No 12/21/2021 10:33 PM CDT Sepideh Kevin RN Active Because of a physical, mental, or emotional condition, do you have difficulty doing errands alone such as visiting a doctor's office or shopping? Yes 12/21/2021 10:33 PM Ana Laura Peralta RN Active * RETIRED Are you deaf or do you have serious difficulty hearing Answer Date of Assessment Author Status No 04/10/2021 6:08 PM MEDICAL ART THERAPIST Activ e * RETIRED Are you blind or do you have serious difficulty seeing, even when wearing glasses? Answer Date of Assessment Author Status No 04/10/2021 6:08 PM MEDICAL ART THERAPIST Activ e * Do you have serious difficulty walking or climbing stairs? Answer Date of Assessment Author Status No 04/10/2021 6:08 PM MEDICAL ART THERAPIST Olivia Kaba R N Active * Do you have difficulty dressing or bathing? Answer Date of Assessment Author Status No 04/10/2021 6:08 PM MEDICAL ART THERAPIST Olivia Kaba R N Active * Because of a physical, mental, or emotional condition, do you have difficulty doing errands alone such as visiting a doctor's office or shopping? Answer Date of Assessment Author Status Yes 04/10/2021 6:08 PM MEDICAL ART THERAPIST Olivia Kaba R N Active documented as [...] Date Author Status Yes 04/10/2021 6:08 PM MEDICAL ART THERAPIST Olivia Kaba R N Active documented in [...] on filedocumented in this encounter Care Teams Portable Feed Mill Operator Relationship Specialty Start Date End Date Jasson Cueva MD [address] [place] [phone] PCP - General FAMILY PRACTICE 8/18/19 Huber Milligan MD [address] [place] [phone] Consulting Physician Vascular Neurology 04/30/19 Norm Hopkins MD [address] [place] [address] Consulting Physician CLINICAL CARDIAC ELECTROPHYSIOLOGY 04/30/19 documented as of this encounter
--- OUTSIDE RECORDS SUMMARY | 2024-03-19 18:39 | XMS_ITS | Encounter Summary ---
Author Organization [facility] Address [address] [place] [address]. [place], [place] [address] [place] [address] Care Team Providers Care Servomechanism Assembler Name Role Phone Jasson Cueva MD Primary Care Provider [phone] Huber Milligan MD Unavailable [phone] Norm Hopkins MD Unavailable [phone] Encounter Details Date Type Department Care Team (Latest Contact Info) Description 07/28/2020 Travel Social History Tobacco Use Types Packs/Day Years Used Date Smoking Tobacco: Former Cigarettes Smokeless Tobacco: Never Alcohol Use Standard Drinks/Week Comments Not Currently 0 (1 standard drink = 0.6 oz pur e alcohol) Comments No Sex and Gender Information Value Date Recorded Sex Assigned at Not on file 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 Answer Date of Assessment Author Status No 11/26/2018 12:08 PM CDT Acti ve * Do you have serious difficulty walking or climbing stairs? Answer Date of Assessment Author Status No 11/26/2018 12:08 PM JULYT Lynda Saba RN Active * Do you have difficulty dressing or bathing? Answer Date of Assessment Author Status No 11/26/2018 12:08 PM Lynda Linder RN Active * Because of a physical, mental, or emotional condition, do you have difficulty doing errands alone such as visiting a doctor's office or shopping? Answer Date of Assessment Author Status No 11/26/2018 12:08 PM Lynda Linder RN Active documented as of this encounter Mental Status * Because of a physical, mental, or emotional condition, do you have serious difficulty concentrating, remembering, or making decisions? Answer Entry Date Author Status No 11/26/2018 12:08 PM Lynda Linder RN Active documented in this encounter Plan of Treatment Not on file documented as of this encounter Visit Diagnoses Not on filedocumented in this encounter Care Teams Servomechanism Assembler Relationship Specialty Start Date End Date Jasson Cueva MD [address] [place] [phone] PCP - General FAMILY PRACTICE 11/03/18 Huber Milligan MD [address] [place] [phone] Consulting Physician Vascular Neurology 04/30/19 Norm Hopkins MD [address] [place] [phone] Consulting Physician CLINICAL CARDIAC ELECTROPHYSIOLOGY 04/30/19 documented as of this encounter
--- OUTSIDE RECORDS SUMMARY | 2024-03-19 18:39 | XMS_ITS | Encounter Summary ---
Author Organization [facility] Address [address] [place] [address]. [place], [place] [id number] [place] [id number] Care Team Providers Care Clinical Research Coordinator Name Role Phone Jasson Cueva MD Primary Care Provider Huber Milligan MD Unavailable [phone] Norm Hopkins MD Unavailable [phone] Encounter Details Date Type Department Care Team (Latest Contact Info) Description 08/16/2021 10:36 AM CDT - 08/16/2021 11:59 PM CDT Hospital Encounter [facility] [address] [place] [address] [place] [address] Jasson Cueva MD [address] [place] [phone] Discharge Disposition: Home or Self Care (Routine Discharge) Social History Tobacco Use Types Packs/Day Years Used Date Smoking Tobacco: Former Cigarettes Smokeless Tobacco: Never Alcohol Use Standard Drinks/Week Comments Not Currently 0 (1 standard drink = 0.6 oz pur e alcohol) Comments No Sex and Gender Information Value Date Recorded Sex Assigned at Not on file Legal 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 CLAIM EXAMINER Gender Identity Not on file Sexual Orientation Not on file documented as of this encounter Functional Status * RETIRED Are you deaf or do you have serious difficulty hearing Answer Date of Assessment Author Status No 04/10/2021 6:08 PM CLAIM EXAMINER Activ e * RETIRED Are you blind or do you have serious difficulty seeing, even when wearing glasses? Answer Date of Assessment Author Status No 04/10/2021 6:08 PM CLAIM EXAMINER Activ e * Do you have serious difficulty walking or climbing stairs? Answer Date of Assessment Author Status No 04/10/2021 6:08 PM CLAIM EXAMINER Olivia Kaba R N Active * Do [...] Procedure Name Priority Date/Time Associated Diagnosis Comments MISCELLANEOUS LAB TEST Routine 9:12 AM CDT Hypertensive heart and renal disease with (congestive) heart failure ([facility] HHS/HCC) Heart failure, unspecified ([facility] HHS/HCC) Encounter for screening for diabetes mellitus COMPREHENSIVE METABOLIC PANEL Routine 08/16/2021 9:12 AM CDT Hypertensive heart and renal disease with (congestive) heart failure ([facility]CC HHS/HCC) Heart failure, unspecified ([facility] HHS/HCC) Encounter for screening for diabetes mellitus CBC W/DIFF AUTOMATED Routine 08/16/2021 9:12 AM CDT Hypertensive heart and renal disease with (congestive) heart failure ([facility] HHS/HCC) Heart failure, unspecified ([facility] HHS/HCC) Encounter for screening for diabetes mellitus documented in this encounter Results * (ABNORMAL) MISCELLANEOUS LAB TEST (08/16/2021 9:12 AM CDT) TEST NAME: [id number] FRUCTOSAMINE 08/16/2021 11:06 AM CDT [facility] SPECIMEN TYPE SERUM 08/16/2021 11:06 AM CDT [facility] TEST RESULT: Flexitest 1(A) 08/19/19 22 4:22 PM CDT [employer] JUHIROSALIO AHMADI Comment: Flexitest 1 Fructosamine ?202 L ? umol/L ?205-363 Test Performed by Keron Genao, [employer] [facility], [address] [place], [place] Cesar Brandon M.D., Ph.D., Director of Laboratories , [place] [id number] 08/16/2021 9:12 AM CDT us Jasson Cueva MD LABORATORY Final Resul t [employer] [facility] [address] [place] [address], [place] [phone] [facility] [address] [place] [address], [place] [phone] * (ABNORMAL) CBC W/DIFF AUTOMATED (08/16/2021 9:12 AM CDT) WBC 8.1 4.0 - 10.8 x10'3/uL 08/16/2021 10:46 AM CDT [facility] RBC 4.75 4.10 - 5.40 x10'6/uL 08/16/2021 10:46 AM CDT [facility] HGB 14.3 12.0 - 16.0 G/DL 08/16/2021 10:46 AM CDT [facility] HCT 46.0 36.0 - 47.0 % 08/16/2021 10:46 AM CDT [facility] MCV 96.8 78.0 - 100.0 FL 08/16/2021 10:46 AM CDT [facility] MCH 30.1 27.0 - 31.0 PG 08/16/2021 10:46 AM CDT [facility] MCHC 31.1(L) 33.0 - 36.0 G/DL 08/16/2021 10:46 AM CDT [facility] RDW 13.8 11.5 - 14.5 % 08/16/2021 10:46 AM CDT [facility] PLT 306 150 - 350 x10'3/uL 08/16/2021 10:46 AM CDT [facility] MPV 11.4(H) 7.4 - 10.4 FL 08/16/2021 10:46 AM CDT [facility] DIFFERENTIAL COMMENT NORMAL REFERENCE RANGE NOT ESTABLISHED FOR THE PROPORTIONAL LEUKOCYTE DIFFERENTIAL. 08/16/2021 10:46 AM CDT [facility] SEG NEUTROPHILS 56.4 % 10:46 AM CDT [facility] LYMPHOCYTES 28.4 % 08/16/2021 10:46 AM CDT [facility] MONOCYTES 10.7 % 08/16/2021 10:46 AM CDT [facility] EOSINOPHILS 3.8 % 08/16/2021 10:46 AM CDT [facility] BASOPHILS 0.6 % 08/16/2021 10:46 AM CDT [facility] IMMATURE GRANS % 0.1 % 08/17/19 10:46 AM CDT [facility] NRBC 0.0 % 08/16/2021 10:46 AM CDT [facility] ABS. NEUTROPHILS 4.57 1.60 - 8.30 x10'3/uL 08/16/2021 10:46 AM CDT [facility] ABS. LYMPHOCYTES 2.31 0.80 - 4.70 x10'3/uL 08/16/2021 10:46 AM CDT [facility] ABS. MONOCYTES 0.87 0.00 - 1.50 x10'3/uL 08/16/2021 10:46 AM CDT [facility] ABS. EOSINOPHILS 0.31 0.00 - 0.40 x10'3/uL 08/16/2021 10:46 AM CDT [facility] ABS. BASOPHILS 0.05 0.00 - 0.20 x10'3/uL 08/16/2021 10:46 AM CDT [facility] ABS. IMMATURE GRANULOCYTES 0.01 0.00 - 0.03 x10'3/uL 08/16/2021 10:46 AM CDT [facility] ABS. NUCLEATED RBC'S 0.00 0.00 x10'3/uL 08/16/2021 10:46 AM CDT [facility] 08/16/2021 9:12 AM CDT us Jasson Cueva MD LABORATORY Final Resul t [facility] [address] [place] [address], * (ABNORMAL) COMPREHENSIVE METABOLIC PANEL (08/16/2021 9:12 AM CDT) SODIUM S/P/B 141 136 - 145 MMOL/L 08/16/2021 11:04 AM T [facility] POTASSIUM S/P/B 4.0 3.5 - 5.1 MMOL/L 08/16/2021 11:04 AM T [facility] CHLORIDE S/P/B 107 98 - 107 MMOL/L 08/16/2021 11:04 AM CDT [facility] CO2 22.4 21.0 - 32.0 MMOL/L 08/16/2021 11:04 AM T [facility] GLUCOSE 77 70 - 99 MG/DL 08/16/2021 11:04 AM T [facility] Comment: FASTING GLUCOSE 100 TO 125 MG/DL IS CONSISTENT WITH IMPAIRED FASTING GLUCOSE. FASTING GLUCOSE >125 MG/DL IS CONSISTENT WITH DIABETES. RANDOM GLUCOSE >200 MG/DL WITH HYPERGLYCEMIC SYMPTOMS IS CONSISTENT WITH DIABETES. PER ADA GUIDELINES BUN 43(H) 6 - 24 MG/DL 08/16/2021 11:04 AM T [facility] CREATININE S/P/B 2.70(H) 0.55 - 1.02 MG/DL 08/16/2021 11:04 AM T [facility] CALCIUM S/P/B 8.8 8.4 - 10.5 MG/DL 08/16/2021 11:04 AM T [facility] BILIRUBIN TOTAL S/P/B 0.3 0.2 - 1.0 MG/DL 08/16/2021 11:04 AM T [facility] Comment: THIS ASSAY IS NOT RECOMMENDED FOR PATIENTS UNDERGOING TREATMENT WITH ELTROMBOPAG DUE TO THE POTENTIAL FOR FALSELY ELEVATED RESULTS. ALKALINE PHOSPHATASE S/P/B 83 55 - 142 U/L 08/16/2021 11:04 AM T [facility] AST 14(L) 15 - 37 U/L 08/16/2021 11:04 AM T [facility] ALT 14 14 - 59 U/L 08/16/2021 11:04 AM CDT [facility] TOTAL PROTEIN S/P/B 6.9 6.4 - 8.2 G/DL 08/16/2021 11:04 AM CDT [facility] ALBUMIN S/P/B 3.2(L) 3.4 - 5.0 G/DL 08/16/2021 11:04 AM CDT [facility] ANION GAP 11.6 5.0 - 15.0 MMOL/L 08/16/2021 11:04 AM T [facility] OSMOLALITY (CALC) 302 MOSM/KG 022 11:04 AM CDT [facility] Comment:REFERENCE RANGE NOT ESTABLISHED GFR ESTIMATE 19(L) >89 ML/MIN/1. 73 M2 08/16/2021 11:04 AM CDT [facility] GFR NOTES GFR REFERENCE S: 08/16/2021 11:04 AM T [facility] Comment: THE ESTIMATED GFR IS [...] ml/min/1.73 m2 G5,KIDNEY FAILURE: <15 ml/min/1.73 m2 08/16/2021 9:12 AM CDT us Jasson Cueva MD LABORATORY Final Resul t [facility] [address] [place] [address], documented in this encounter Visit Diagnoses Diagnosis Hypertensive heart and renal disease with (congestive) heart failure ([facility]/HCC) Heart failure, unspecified ([facility]) Heart failure, unspecified Encounter for screening for diabetes mellitus Screening for diabetes mellitus documented in this encounter Care Teams Clinical Research Coordinator Relationship Specialty Start Date End Date Jasson Cueva MD [address] [place] [phone] PCP - General FAMILY PRACTICE 11/03/18 Huber Milligan MD [address] [place] [phone] Consulting Physician Vascular Neurology 04/30/19 Norm Hopkins MD [address] [place] [address] Consulting Physician CLINICAL CARDIAC ELECTROPHYSIOLOGY 04/30/19 documented as of this encounter
--- OUTSIDE RECORDS SUMMARY | 2024-03-19 18:39 | XMS_ITS | Encounter Summary ---
Author Organization [facility] Address [address] [place] [address]. [place], [place] [address] [place] [address] Care Team Providers Care Radio Television Announcer Name Role Phone Jasson Cueva MD Primary Care Provider Huber Milligan MD Unavailable [phone] Norm Hopkins MD Unavailable [phone] Encounter Details Date Type Department Care Team (Latest Contact Info) Description 12/20/2021 10:46 AM CDT - 12/20/2021 11:59 PM CDT Hospital Encounter [facility] [address] [place] [address] [place] [address] Jasson Cueva MD [address] [place] [phone] Discharge Disposition: Home or Self Care (Routine Discharge) Social History Tobacco Use Types Packs/Day Years Used Date Smoking Tobacco: Former Cigarettes Smokeless Tobacco: Never Alcohol Use Standard Drinks/Week Comments Not Currently 0 (1 standard drink = 0.6 oz pur e alcohol) Comments No Sex and Gender Information Value Date Recorded Sex Assigned at Not on file Legal 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 CHILD DEVELOPMENT INSTRUCTOR Gender Identity Not on file Sexual Orientation Not on file documented as of this encounter Functional Status * RETIRED Are you deaf or do you have serious difficulty hearing Answer Date of Assessment Author Status No 04/10/2021 6:08 PM CHILD DEVELOPMENT INSTRUCTOR Activ e * RETIRED Are you blind or do you have serious difficulty seeing, even when wearing glasses? Answer Date of Assessment Author Status No 04/10/2021 6:08 PM CHILD DEVELOPMENT INSTRUCTOR Activ e * Do you have serious [...] Status Yes 04/10/2021 6:08 PM Olivia Watson RN Active documented in this encounter Medications [...] hours as needed for Wheezing. 2 furosemide (LASIX) 20 MG tablet Take 1 tablet (20 mg total) by mouth daily. 11/23/2021 3 furosemide 20 MG tablet 20 mg. Take Sunday and sunday01/10/2021 2 gabapentin (NEURONTIN) 600 MG tabletIndication s:Neuropathic pain TAKE ONE TABLET BY MOUTH IN THE MORNING 1 IN EVENING AND 1 BEFORE BEDTIME 90 tablet 3 12/19/2021 2 metoprolol succinate ER 50 MG 24 [...] Procedure Name Priority Date/Time Associated Diagnosis Comments AST/SGOT Routine 12/20/2021 9:55 AM CDT Hypertensive heart and renal disease with (congestive) heart failure (CMS/HCC HHS/HCC) Heart failure, unspecified (CMS/HCC HHS/HCC) Chronic kidney disease, stage 3 unspecified (CMS/HCC HHS/HCC) ALBUMIN URINE RANDOM W/CREATININE Routine 12/20/2021 9:55 AM CDT Hypertensive heart and renal disease with (congestive) heart failure (CMS/HCC HHS/HCC) Heart failure, unspecified (CMS/HCC HHS/HCC) Chronic kidney disease, stage 3 unspecified (CMS/HCC HHS/HCC) BASIC METABOLIC PANEL Routine 12/20/2021 9:55 AM CDT Hypertensive heart and renal disease with (congestive) heart failure (CMS/HCC HHS/HCC) Heart failure, unspecified (CMS/HCC HHS/HCC) Chronic kidney disease, stage 3 unspecified (CMS/HCC HHS/HCC) CBC W/DIFF AUTOMATED Routine 12/20/2021 9:55 AM CDT Hypertensive heart and renal disease with (congestive) heart failure (CMS/HCC HHS/HCC) Heart failure, unspecified (CMS/HCC HHS/HCC) Chronic kidney disease, stage 3 unspecified (CMS/HCC HHS/HCC) documented in this encounter Results * (ABNORMAL) CBC W/DIFF AUTOMATED (12/20/2021 9:55 AM CDT) WBC 10.7 4.0 - 10.8 x10'3/uL 12/20/2021 11:03 AM CDT [facility] RBC 4.48 4.10 - 5.40 x10'6/uL 12/20/2021 11:03 AM CDT [facility] HGB 13.8 12.0 - 16.0 G/DL 12/20/2021 11:03 AM CDT [facility] HCT 43.3 36.0 - 47.0 % 12/20/2021 11:03 AM CDT [facility] MCV 96.7 78.0 - 100.0 FL 12/20/2021 11:03 AM CDT [facility] MCH 30.8 27.0 - 31.0 PG 12/20/2021 11:03 AM CDT [facility] MCHC 31.9(L) 33.0 - 36.0 G/DL 12/20/2021 11:03 AM CDT [facility] RDW 13.7 11.5 - 14.5 % 12/20/2021 11:03 AM CDT [facility] PLT 313 150 - 350 x10'3/uL 12/20/2021 11:03 AM CDT [facility] MPV 10.8(H) 7.4 - 10.4 FL 12/20/2021 11:03 AM CDT [facility] DIFFERENTIAL COMMENT NORMAL REFERENCE RANGE NOT ESTABLISHED FOR THE PROPORTIONAL LEUKOCYTE DIFFERENTIAL. 12/20/2021 11:03 AM CDT [facility] SEG NEUTROPHILS 78.4 % 11:03 AM CDT [facility] LYMPHOCYTES 10.1 % 12/20/2021 11:03 AM CDT [facility] MONOCYTES 9.1 % 12/20/2021 11:03 AM CDT [facility] EOSINOPHILS 1.3 % 12/20/2021 11:03 AM CDT [facility] BASOPHILS 0.8 % 12/20/2021 11:03 AM CDT [facility] IMMATURE GRANS % 0.3 % 12/21/19 11:03 AM CDT [facility] NRBC 0.0 % 12/20/2021 11:03 AM CDT [facility] ABS. NEUTROPHILS 8.36(H) 1.60 - 8.30 x10'3/uL 12/20/2021 11:03 AM CDT [facility] ABS. LYMPHOCYTES 1.08 0.80 - 4.70 x10'3/uL 12/20/2021 11:03 AM CDT [facility] ABS. MONOCYTES 0.97 0.00 - 1.50 x10'3/uL 12/20/2021 11:03 AM CDT [facility] ABS. EOSINOPHILS 0.14 0.00 - 0.40 x10'3/uL 12/20/2021 11:03 AM CDT [facility] ABS. BASOPHILS 0.08 0.00 - 0.20 x10'3/uL 12/20/2021 11:03 AM CDT [facility] ABS. IMMATURE GRANULOCYTES 0.03 0.00 - 0.03 x10'3/uL 12/20/2021 11:03 AM CDT [facility] ABS. NUCLEATED RBC'S 0.00 0.00 x10'3/uL 12/20/2021 11:03 AM CDT [facility] 12/20/2021 9:55 AM CDT us Jasson Cueva MD LABORATORY Final Resul t [facility] [address] [place] [address], * (ABNORMAL) BASIC METABOLIC PANEL (12/20/2021 9:55 AM CDT) SODIUM S/P/B 141 136 - 145 MMOL/L 12/20/2021 11:27 AM CDT [facility] POTASSIUM S/P/B 3.9 3.5 - 5.1 MMOL/L 12/20/2021 11:27 AM CDT [facility] CHLORIDE S/P/B 104 98 - 107 MMOL/L 12/20/2021 11:27 AM CDT [facility] CO2 24.1 21.0 - 32.0 MMOL/L 12/20/2021 11:27 AM CDT [facility] GLUCOSE 80 70 - 99 MG/DL 12/20/2021 11:27 AM CDT [facility] Comment: FASTING GLUCOSE 100 TO 125 MG/DL IS CONSISTENT WITH IMPAIRED FASTING GLUCOSE. FASTING GLUCOSE >125 MG/DL IS CONSISTENT WITH DIABETES. RANDOM GLUCOSE >200 MG/DL WITH HYPERGLYCEMIC SYMPTOMS IS CONSISTENT WITH DIABETES. PER ADA GUIDELINES BUN 49(H) 6 - 24 MG/DL 12/20/2021 11:27 AM T [facility] CREATININE S/P/B 3.81(H) 0.55 - 1.02 MG/DL 12/20/2021 11:27 AM T [facility] CALCIUM S/P/B 9.1 8.4 - 10.5 MG/DL 12/20/2021 11:27 AM T [facility] ANION GAP 12.9 5.0 - 15.0 MMOL/L 12/20/2021 11:27 AM T [facility] OSMOLALITY (CALC) 304 MOSM/KG 022 11:27 AM T [facility] Comment:REFERENCE RANGE NOT ESTABLISHED GFR ESTIMATE 12(L) >89 ML/MIN/1. 73 M2 12/20/2021 11:27 AM T [facility] GFR NOTES GFR REFERENCE S: 12/20/2021 11:27 AM T [facility] Comment: THE ESTIMATED GFR IS [...] Jasson Cueva MD LABORATORY Final Resul t [facility] [address] [place] [address], * (ABNORMAL) ALBUMIN CREATININE URINE RANDOM (12/20/2021 9:55 AM CDT) ALBUMIN (U) 340.1 MG/DL 12/20/2021 12:58 PM CDT [facility] Comment:REFERENCE RANGE NOT ESTABLISHED CREATININE (U) 218.3 MG/DL 12/20/2021 12:58 PM CDT [facility] Comment:REFERENCE RANGE NOT ESTABLISHED ALBUMIN/CREAT RATIO 1,557.7(H) <30 MG/G 12/20/2021 12:58 PM CDT [facility] Comment: NORMAL TO MILDLY INCREASED ALBUMINURIA: <30 MG/G MODERATELY INCREASED ALBUMINURIA: 30 TO 300 MG/G SEVERELY INCREASED ALBUMINURIA: >300 MG/G PER KDIGO URINE SPECIMEN / Unknown 12/20/2021 9:55 AM CDT Jasson Cueva MD URINE ORDERABLES Final Resu lt Performing Organization Address City/[facility]/ZIP Co de Phone Number [facility] [address] [place] [address], * (ABNORMAL) AST/SGOT (12/20/2021 9:55 AM CDT) AST 13(L) 15 - 37 U/L 12/20/2021 11:27 AM CDT [facility] 12/20/2021 9:55 AM CDT us Jasson Cueva MD LABORATORY Final Resul t Performing Organization Address [facility] Co de Phone Number [facility] [address] [place] [address], documented in this encounter Visit Diagnoses Diagnosis Hypertensive heart and renal disease with (congestive) heart failure (CMS/HCC HHS/HCC) Heart failure, unspecified ([facility] HHS/HCC) Heart failure, unspecified Chronic kidney disease, stage 3 unspecified ([facility] HHS/HCC) documented in this encounter Care Teams Radio Television Announcer Relationship Specialty Start Date End Date Jasson Cueva MD [address] [place] [phone] PCP - General FAMILY PRACTICE 11/03/18 Huber Milligan MD [address] [place] [phone] Consulting Physician Vascular Neurology 04/30/19 Norm Hopkins MD [address] [place] [id number] Consulting Physician CLINICAL CARDIAC ELECTROPHYSIOLOGY 04/30/19 documented as of this encounter
--- OUTSIDE RECORDS SUMMARY | 2024-03-19 18:39 | XMS_ITS | Encounter Summary ---
Author Organization [facility] Address [address] [place] [address]. [place], [place] [address] [place] [address] Care Team Providers Care Grocery Stock Clerk Name Role Phone Jasson Cueva MD Primary Care Provider [phone] Huber Milligan MD Unavailable [phone] Norm Hopkins MD Unavailable [phone] Reason for Referral * Imaging (Routine) - Closed Specialty Diagnoses / Procedures Referred By Contac t Referred To Contact RADIOLOGY Diagnoses History of nicotine dependence Procedures CT LUNG SCREENING Moody Quiroga PA [address] [place] [phone] Phone: tel: fax: Referral ID Status Reason Start Date Expiration Date Visits Re quested Visits Authorized [id number] Closed 01/17/2021 02/16/2022 1 1 RTISING AGENCY MANAGER Reason for Visit * Imaging (Routine) - Closed Specialty Diagnoses / Procedures Referred By Contac t Referred To Contact RADIOLOGY Diagnoses History of nicotine dependence Procedures CT LUNG SCREENING Moody Quiroga PA [address] [place] [address] Phone: tel: fax: Referral ID Status Reason Start Date Expiration Date Visits Re quested Visits Authorized [id number] Closed 01/17/2021 02/16/2022 1 1 Encounter Details Date Type Department Care Team (Latest Contact Info) Description 01/24/2021 12:40 PM ADVERTISING AGENCY MANAGER - 01/24/2021 11:59 PM ADVERTISING AGENCY MANAGER Hospital [place] [address] [facility] [place] [address] Moody Quiroga PA [address] [place] [address] Discharge Disposition: Home or Self Care (Routine Discharge) Social History Tobacco Use Types Packs/Day Years Used Date Smoking Tobacco: Former Cigarettes Smokeless Tobacco: Never Alcohol Use Standard Drinks/Week Comments Not Currently 0 (1 standard drink = 0.6 oz pur e alcohol) Comments No Sex and Gender Information Value Date Recorded Sex Assigned at Not on file Legal 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 ADVERTISING AGENCY MANAGER Gender Identity Not on file Sexual Orientation Not on file COVID-19 Exposure Response Date Recorded In the last month, have you been in contact with someone who was confirmed or suspected to have Coronavirus / COVID-19? No / Unsure 01/24/2021 12:38 PM ADVERTISING AGENCY MANAGER documented as of this encounter Functional Status [...] Assessment Author Status No 01/12/2021 3:33 PM JULYT Ben Ayoub RN Active * Because of a physical, mental, or emotional condition, do you have difficulty doing errands alone such as visiting a doctor's office or shopping? Answer Date of Assessment Author Status No 01/12/2021 3:33 PM Ben Beckwith RN Active documented as of this encounter [...] total) by mouth daily. 2 11/08/2018 3 traMADol 50 MG tablet 03/10/2020 2 documented as of this encounter Plan of Treatment Not on file documented as of this encounter Procedures Procedure Name Priority Date/Time Associated Diagnosis Comments CT LUNG SCREENING Routine 01/24/2021 1:3 3 PM ADVERTISING AGENCY MANAGER History of nicotine dependence documented in this encounter Results * CT LUNG SCREENING (01/24/2021 1:33 PM ADVERTISING AGENCY MANAGER) Anatomical Region Laterality Modality Chest Computed Tomogra phy 01/24/2021 9:32 PM ADVERTISING AGENCY MANAGER Impressions 01/24/2021 9:50 PM ADVERTISING AGENCY MANAGER IMPRESSION: ? 1. ??LUNG-RADS category 1: Negative, no evidence of primary lung cancer. 2. LUNG-RADS category S: Negative, no new/unknown potentially significant incidental findings requiring urgent additional evaluation. 3. Other incidental findings as above. RECOMMENDATIONS: Continued routine annual LDCT lung screening. Suggest next exam on or around January 2022. Thank you for choosing the [facility] Lung Screening Program. Referred By: MOODY QUIROGA Interpreted By: Tee Reyes MD, 01/24/2021 9:32 PM Narrative 01/24/2021 9:50 PM ADVERTISING AGENCY MANAGER EXAM: LUNG SCREENING LOW-DOSE CT THORAX WITHOUT CONTRAST DATE: 01/24/2021 HISTORY: Asymptomatic patient with history of smoking meeting CMS high-risk criteria for lung screening. * ??70 years * ??98 pack years * ??Quit smoking 3 years ago COMPARISON: MRI abdomen on 04/05/2020. TECHNIQUE: Noncontrast, helical, low-dose CT (LDCT) chest [...] Incidentals (LUNG-RADS category S): None. Pulmonary Incidentals: Bibasilar atelectasis/scarring. Other Incidentals: Coronary artery calcifications. ??Mitral annular calcifications. ??Atherosclerotic thoracic aorta. ??Loop recorder device, left anterior chest wall. ??Probable renal cysts. ??Asymmetric left renal atrophy. ??Asymmetric hypertrophy of right kidney with distortion of cortex, unchanged since prior MRI. ??Left shoulder prosthesis. ??Old rib fractures. Procedure Note Tee Reyes MD - 01/24/2021 EXAM: LUNG SCREENING LOW-DOSE CT THORAX WITHOUT CONTRAST DATE: 01/24/2021 HISTORY: Asymptomatic patient with history of smoking meeting CMShigh-risk criteria for lung screening. * 70 years * 98 pack years * Quit smoking 3 years ago COMPARISON: MRI abdomen on 04/05/2020. TECHNIQUE: Noncontrast, helical, low-dose CT (LDCT) chest per standarddepartmental protocol. A dose lowering technique was used for thisprocedure, which may include, but is not limited to, dose reductiontechnique, automated exposure control, the use of iterativereconstruction, and ALARA (As Low As Reasonably Achievable) / Image Gentlytechniques. FINDINGS: Lung Screening Specific (LUNG-RADS): Negative. Potentially Significant Incidentals (LUNG-RADS category S): None. Pulmonary Incidentals: Bibasilar atelectasis/scarring. Other Incidentals: Coronary artery calcifications. Mitral annularcalcifications. Atherosclerotic thoracic aorta. Loop recorder device,left anterior chest wall. Probable renal cysts. Asymmetric left renalatrophy. Asymmetric hypertrophy of right kidney with distortion ofcortex, unchanged since prior MRI. Left shoulder prosthesis. Old ribfractures. IMPRESSION: 1. LUNG-RADS category 1: Negative, no evidence of primary lung cancer. 2. LUNG-RADS category S: Negative, no new/unknown potentially significantincidental findings requiring urgent additional evaluation. 3. Other incidental findings as above. RECOMMENDATIONS: Continued routine annual LDCT lung screening. Suggestnext exam on or around January 2022. Thank you for choosing the [facility]ening[facility]. Referred By: MOODY QUIROGA Interpreted By: Tee Reyes MD, 01/24/2021 9:32 PM us Moody Quiroga [place] CT Final Result documented in this encounter Visit Diagnoses Diagnosis History of nicotine dependence Personal history of tobacco use, presenting hazards to health documented in this encounter Care Teams Grocery Stock Clerk Relationship Specialty Start Date End Date Jasson Cueva MD [address] [place] [phone] PCP - General FAMILY PRACTICE 11/03/18 Huber Milligan MD [address] [place] [phone] Consulting Physician Vascular Neurology 04/30/19 Norm Hopkins MD [address] [place] [address] Consulting Physician CLINICAL CARDIAC ELECTROPHYSIOLOGY 04/30/19 documented as of this encounter
--- OUTSIDE RECORDS SUMMARY | 2024-03-19 18:39 | XMS_ITS | Encounter Summary ---
Author Organization [facility] Address [address] [place] [address]. [place], [place] [address] [place] [address] Care Team Providers Care Software Support Analyst Name Role Phone Jasson Cueva MD Primary Care Provider Huber Milligan MD Unavailable [phone] Norm Hopkins MD Unavailable [phone] Encounter Details Date Type Department Care Team (Late st Contact Info) Description 05/27/2020 Orders Only [facility] [address] [place] [address] Mary Jane Olivas MD [address] [place] [address] Social History Tobacco Use Types Packs/Day Years Used Date Smoking Tobacco: Former Cigarettes Smokeless Tobacco: Never Alcohol Use Standard Drinks/Week Comments Not Currently 0 (1 standard drink = 0.6 oz pur e alcohol) Comments No Sex and Gender Information Value Date Recorded Sex Assigned at Not on file Legal 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 CONSULTING SOLUTION DIRECTOR Gender Identity Not on file Sexual Orientation Not on file COVID-19 Exposure Response Date Recorded In the last month, have you been in contact with someone who was confirmed or suspected to have Coronavirus / COVID-19? No / Unsure 05/27/2020 11:27 AM CONSULTING SOLUTION DIRECTOR documented as of this encounter Functional Status [...] 12:08 PM Lynda Linder RN Active * Do you have difficulty [...] on file documented as of this encounter Results * (ABNORMAL) ALBUMIN URINE RANDOM (05/27/2020 11:37 AM CONSULTING SOLUTION DIRECTOR) Pathologist [facility] ALBUMIN ELECTROPHORESIS (U) 229.2 MG/DL 05/27/2020 1:27 PM [facility] Comment: REFERENCE RANGE NOT ESTABLISHED CALLED TO CANDY AT 1326 READ BACK AND VERIFIED CORRECTED ON 05/27 AT 1327: PREVIOUSLY REPORTED 187.3 REFERENCE RANGE NOT ESTABLISHED CREATININE (U) 142.8 MG/DL 05/27/2020 12:09 PM CONSULTING SOLUTION DIRECTOR [facility] Comment:REFERENCE RANGE NOT ESTABLISHED MICROALB/CREAT 1,605.0(H ) <30 MG/G 05/27/2020 1:27 PM CONSULTING SOLUTION DIRECTOR [facility] Comment: NORMAL TO MILDLY INCREASED ALBUMINURIA: <30 MG/G MODERATELY INCREASED ALBUMINURIA: 30 TO 300 MG/G SEVERELY INCREASED ALBUMINURIA: >300 MG/G PER KDIGO CALLED TO CANDY AT 1326 READ BACK AND VERIFIED CORRECTED ON 05/27 AT 1327: PREVIOUSLY REPORTED 1311.8 NORMAL TO MILDLY INCREASED ALBUMINURIA: <30 MG/G MODERATELY INCREASED ALBUMINURIA: 30 TO 300 MG/G SEVERELY INCREASED ALBUMINURIA: >300 MG/G PER KDIGO URINE SPECIMEN / Unknown 05/27/2020 11:37 AM CONSULTING SOLUTION DIRECTOR Mary Jane Olivas MD URINE ORDERABLES Edited Re sult - Final [facility] [address] [place] [address], * (ABNORMAL) RENAL FUNCTION PANEL (05/27/2020 11:30 AM CONSULTING SOLUTION DIRECTOR) SODIUM S/P/B 146(H) 136 - 145 MMOL/L 05/27/2020 12:23 PM [facility] POTASSIUM S/P/B 5.1 3.5 - 5.1 MMOL/L 05/27/2020 12:23 PM [facility] CHLORIDE S/P/B 109(H) 98 - 107 MMOL/L 05/27/2020 12:23 PM [facility] CO2 26.5 21.0 - 32.0 MMOL/L 05/27/2020 12:23 PM [facility] GLUCOSE 89 70 - 99 MG/DL 05/27/2020 12:23 PM [facility] Comment: FASTING GLUCOSE 100 TO 125 MG/DL IS CONSISTENT WITH IMPAIRED FASTING GLUCOSE. FASTING GLUCOSE >125 MG/DL IS CONSISTENT WITH DIABETES. RANDOM GLUCOSE >200 MG/DL WITH HYPERGLYCEMIC SYMPTOMS IS CONSISTENT WITH DIABETES. PER ADA GUIDELINES BUN 34(H) 6 - 24 MG/DL 05/27/2020 12:23 PM [facility] CREATININE S/P/B 1.94(H) 0.55 - 1.02 MG/DL 05/27/2020 12:23 PM [facility] CALCIUM S/P/B 9.0 8.4 - 10.5 MG/DL 05/27/2020 12:23 PM [facility] ALBUMIN S/P/B 3.4 3.4 - 5.0 G/DL 05/27/2020 12:23 PM [facility] PHOSPHORUS 3.7 2.6 - 4.7 MG/DL 05/27/2020 12:28 PM [facility] ANION GAP 10.5 5.0 - 15.0 MMOL/L 05/27/2020 12:23 PM [facility] OSMOLALITY (CALC) 309 MOSM/KG 021 12:23 PM [facility] Comment:REFERENCE RANGE NOT ESTABLISHED EGFR NON-AFR. AMER. 26(L) >89 ML/MIN/1. 73 M2 05/27/2020 12:23 PM [facility] EGFR AFR. AMER. 30(L) >89 ML/MIN/1. 73 M2 05/27/2020 12:23 PM [facility] GFR NOTES GFR REFERENCE S: 05/27/2020 12:23 PM [facility] Comment: THE ESTIMATED GFR IS [...] ml/min/1.73 m2 G5,KIDNEY FAILURE: <15 ml/min/1.73 m2 05/27/2020 11:3 0 AM CONSULTING SOLUTION DIRECTOR us Mary Jane Olivas MD LABORATORY Final Resu lt [facility] [address] [place] [address], * (ABNORMAL) CBC W/DIFF AUTOMATED (05/27/2020 11:30 AM CONSULTING SOLUTION DIRECTOR) WBC 7.4 4.5 - 10.8 x10'3/uL 05/27/2020 11:37 AM [facility] RBC 4.44 4.10 - 5.40 x10'6/uL 05/27/2020 11:37 AM [facility] HGB 13.4 12.0 - 16.0 G/DL 05/27/2020 11:37 AM [facility] HCT 42.9 36.0 - 47.0 % 05/27/2020 11:37 AM [facility] MCV 96.6 78.0 - 100.0 FL 05/27/2020 11:37 AM [facility] MCH 30.2 27.0 - 31.0 PG 05/27/2020 11:37 AM [facility] MCHC 31.2(L) 33.0 - 36.0 G/DL 05/27/2020 11:37 AM [facility] RDW 13.9 11.5 - 14.5 % 05/27/2020 11:37 AM [facility] PLT 228 150 - 350 x10'3/uL 05/27/2020 11:37 AM [facility] MPV 10.6(H) 7.4 - 10.4 FL 05/27/2020 11:37 AM [facility] DIFFERENTIAL COMMENT NORMAL REFERENCE RANGE NOT ESTABLISHED FOR THE PROPORTIONAL LEUKOCYTE DIFFERENTIAL. 05/27/2020 11:37 AM [facility] SEG NEUTROPHILS 59.5 % 11:37 AM [facility] LYMPHOCYTES 25.1 % 05/27/2020 11:37 AM [facility] MONOCYTES 9.5 % 05/27/2020 11:37 AM [facility] EOSINOPHILS 4.7 % 05/27/2020 11:37 AM [facility] BASOPHILS 0.9 % 05/27/2020 11:37 AM [facility] IMMATURE GRANS % 0.3 % 05/28/19 11:37 AM [facility] NRBC 0.0 % 05/27/2020 11:37 AM [facility] ABS. NEUTROPHILS 4.40 1.60 - 8.30 x10'3/uL 05/27/2020 11:37 AM CONSULTING SOLUTION DIRECTOR [facility] ABS. LYMPHOCYTES 1.86 0.80 - 4.70 x10'3/uL 05/27/2020 11:37 AM CONSULTING SOLUTION DIRECTOR [facility] ABS. MONOCYTES 0.70 0.00 - 1.50 x10'3/uL 05/27/2020 11:37 AM CONSULTING SOLUTION DIRECTOR [facility] ABS. EOSINOPHILS 0.35 0.00 - 0.40 x10'3/uL 05/27/2020 11:37 AM CONSULTING SOLUTION DIRECTOR [facility] ABS. BASOPHILS 0.07 0.00 - 0.20 x10'3/uL 05/27/2020 11:37 AM CONSULTING SOLUTION DIRECTOR [facility] ABS. IMMATURE GRANULOCYTES 0.02 0.00 - 0.03 x10'3/uL 05/27/2020 11:37 AM CONSULTING SOLUTION DIRECTOR [facility] ABS. NUCLEATED RBC'S 0.00 0.00 x10'3/uL 05/27/2020 11:37 AM CONSULTING SOLUTION DIRECTOR [facility] 05/27/2020 11:3 0 AM CONSULTING SOLUTION DIRECTOR Mary Jane Olivas MD LABORATORY Final Resu lt [facility] [address] [place] [address], documented in this encounter Visit Diagnoses Diagnosis Benign essential hypertension- Primary Essential hypertension, benign Nephrotic range proteinuria Proteinuria documented in this encounter Care Teams Software Support Analyst Relationship Specialty Start Date End Date Jasson Cueva MD [address] [place] [phone] PCP - General FAMILY PRACTICE 11/03/18 Huber Milligan MD [address] [place], [place] [phone] Consulting Physician Vascular Neurology 04/30/19 Norm Hopkins MD [address] [place] [address] Consulting Physician CLINICAL CARDIAC ELECTROPHYSIOLOGY 04/30/19 documented as of this encounter
--- OUTSIDE RECORDS SUMMARY | 2024-03-19 18:39 | XMS_ITS | Encounter Summary ---
Author Organization [facility] Address [address] [place] [address]. [place], [place] [phone] [place] [phone] Care Team Providers Care Infant Childcare Provider Name Role Phone Jasson Cueva MD Primary Care Provider [phone] Huber Milligan MD Unavailable [phone] Norm Hopkins MD Unavailable [phone] Encounter Details Date Type Department Care Team (Late st Contact Info) Description 01/17/2021 Hospital Follow-up Call [facility] Unit [address] [place] [address] Carolina Montoya RN Social History Tobacco Use Types Packs/Day Years Used Date Smoking Tobacco: Former Cigarettes Smokeless Tobacco: Never Alcohol Use Standard Drinks/Week Comments Not Currently 0 (1 standard drink = 0.6 oz pur e alcohol) Comments No Sex and Gender Information Value Date Recorded Sex Assigned at Not on file Legal 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 VAULT KEEPER Gender Identity Not on file Sexual Orientation [...] Ayoub RN Active documented in this encounter Plan of Treatment Not on file documented as of this encounter Visit Diagnoses Not on filedocumented in this encounter Additional Health Concerns Infection Onset Date Last Indicated Resolved Time COVID-19 Rule Out 12/23/2022 12/23/2022 12/23/2022 11:04 AM CDT COVID-19 Rule Out 02/27/2023 02/27/2023 02/27/2023 8:57 PM VAULT KEEPER documented as of this encounter Care Teams Infant Childcare Provider Relationship Specialty Start Date End Date Jasson Cueva MD [address] [place] [phone] PCP - General FAMILY PRACTICE 11/03/18 Huber Milligan MD [address] [place] [phone] Consulting Physician Vascular Neurology 04/30/19 Norm Hopkins MD [address] [place] [phone] Consulting Physician CLINICAL CARDIAC ELECTROPHYSIOLOGY 04/30/19 documented as of this encounter
--- OUTSIDE RECORDS SUMMARY | 2024-03-19 18:39 | XMS_ITS | Encounter Summary ---
Author Organization [facility] Address [address] [place] [address]. [place], [place] [address] [place] [address] Care Team Providers Care Operations Supervisor Name Role Phone Jasson Cueva MD Primary Care Provider [phone] Huber Milligan MD Unavailable [phone] Norm Hopkins MD Unavailable [phone] Encounter Details Date Type Department Care Team (Latest Contact Info) Description 11/07/2021 Travel Social History Tobacco Use Types Packs/Day Years Used Date Smoking Tobacco: Former Cigarettes Smokeless Tobacco: Never Alcohol Use Standard Drinks/Week Comments Not Currently 0 (1 standard drink = 0.6 oz pur e alcohol) Comments No Sex and Gender Information Value Date Recorded Sex Assigned at Not on file Legal 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 PAIL BAILER Gender Identity Not on file Sexual Orientation Not on file COVID-19 Exposure Response Date Recorded In the last 10 days, have yo u been in contact with someone who was confirmed or suspected to have Coronavirus/COVID-19? No / Unsure 11/07/2021 3:08 PM CDT documented as of this encounter Functional Status * RETIRED Are you deaf or do you have serious difficulty hearing Answer Date of Assessment Author Status No 04/10/2021 6:08 PM PAIL BAILER Activ e * RETIRED Are you blind or do you have serious difficulty seeing, even when wearing glasses? Answer Date of Assessment Author Status No 04/10/2021 6:08 PM PAIL BAILER Activ e * Do you have serious [...] on filedocumented in this encounter Care Teams Operations Supervisor Relationship Specialty Start Date End Date Jasson Cueva MD [address] [place] [phone] PCP - General FAMILY PRACTICE 11/03/18 Huber Milligan MD [address] [place] [phone] Consulting Physician Vascular Neurology 04/30/19 Norm Hopkins MD [address] [place] [address] Consulting Physician CLINICAL CARDIAC ELECTROPHYSIOLOGY 04/30/19 documented as of this encounter
--- OUTSIDE RECORDS SUMMARY | 2024-03-19 18:39 | XMS_ITS | Encounter Summary ---
Author Organization [facility] Address [address] [place] [address]. [place], [place] [address] [place] [address] Care Team Providers Care Psychiatric Nursing Assistant Name Role Phone Jasson Cueva MD Primary Care Provider [phone] Huber Milligan MD Unavailable [phone] Norm Hopkins MD Unavailable [phone] Encounter Details Date Type Department Care Team (Latest Contact Info) Description 04/10/2021 Travel Social History Tobacco Use Types Packs/Day Years Used Date Smoking Tobacco: Former Cigarettes Smokeless Tobacco: Never Alcohol Use Standard Drinks/Week Comments Not Currently 0 (1 standard drink = 0.6 oz pur e alcohol) Comments No Sex and Gender Information Value Date Recorded Sex Assigned at Not on file Legal 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 TRAVEL AGENCY MANAGER Gender Identity Not on file Sexual Orientation Not on file COVID-19 Exposure Response Date Recorded In the last month, have you been in contact with someone who was confirmed or suspected to have Coronavirus / COVID-19? No / Unsure 04/10/2021 12:53 PM TRAVEL AGENCY MANAGER documented as of this encounter Functional Status * Question Answer Date of Assessment Author Status Do you have serious difficulty walking or climbing stairs? No 04/10/2021 6:08 PM TRAVEL AGENCY MANAGER Olivia Kaba RN Acti ve * Question Answer Date of Assessment Author Status Do you have difficulty dressing or bathing? No 04/10/2021 6:08 PM TRAVEL AGENCY MANAGER Olivia Kaba RN Active Because of a physical, mental, [...] 01/12/2021 3:33 PM Ben Beckwith RN Active * Because of a physical, mental, or emotional condition, do you have difficulty doing errands alone such as visiting a doctor's office or shopping? Answer Date of Assessment Author Status No 01/12/2021 3:33 PM CDBen Holder RN Active documented as of this encounter Mental Status * Question Answer Entry Date Author Status Because of a physical, mental, or emotional condition, do you have serious difficulty concentrating, remembering, or making decisions? Yes 04/10/2021 6:08 PM Olivia Watson RN Active * Because of a physical, mental, or emotional condition, do you have serious difficulty concentrating, remembering, or making decisions? Answer Entry Date Author Status No 01/12/2021 3:33 PM Ben Beckwith RN Active documented in this encounter Plan of Treatment Not on file documented as of this encounter Visit Diagnoses Not on filedocumented in this encounter Care Teams Psychiatric Nursing Assistant Relationship Specialty Start Date End Date Jasson Cueva MD [address] [place] [phone] PCP - General FAMILY PRACTICE 11/03/18 Huber Milligan MD [address] [place] [phone] Consulting Physician Vascular Neurology 04/30/19 Norm Hopkins MD [address] [place] [address] Consulting Physician CLINICAL CARDIAC ELECTROPHYSIOLOGY 04/30/19 documented as of this encounter
--- OUTSIDE RECORDS SUMMARY | 2024-03-19 18:39 | XMS_ITS | Encounter Summary ---
Author Organization [facility] Address [address] [place] [address]. [place], [place] [id number] [place] [id number] Care Team Providers Care Supervisor Maintenance And Custodians Name Role Phone Jasson Valdivia MD Primary Care Provider [phone] Huber Milligan MD Unavailable [phone] Norm Hopkins MD Unavailable [phone] Reason for Referral * Home Health Care (Routine) - Canceled Specialty Diagnoses / Procedures Referred By Jayce coronado Referred To Contact Home Health Services / [facility] Diagnoses MOIRA (acute kidney injury) ([facility]) Procedures OFFICE/OUTPT VISIT,NEW,LEVL III OFFICE/OUTPT VISIT,NEW,LEVL IV OFFICE/OUTPT VISIT,NEW,LEVL V OFFICE/OUTPT VISIT,EST,LEVL III OFFICE/OUTPT VISIT,EST,LEVL IV OFFICE/OUTPT VISIT,EST,LEVL V Sanna Felder ANP-BC [address] [place] [id number] Phone: tel: fax: [facility] [address] [place] [address] Phone: tel: fax: Referral ID Status Reason Start Date Expiration Date Visits Requested Visits Authorized [id number] Canceled Home Health Services 12/22/2021 01/21/2023 1 1 Reason for Visit * Reason Comments Abnormal Lab Results * Auth/Cert Specialty Diagnoses / Procedures Referred By Contac t Referred To Contact Diagnoses UTI (urinary tract infection) MOIRA (acute kidney injury) ([facility]) MOIRA (acute kidney injury) ([facility]) Procedures GENERAL Jasson Valdivia MD [address] [place] [phone] Phone: tel: fax: Referral ID Status Reason Start Date Expiration Date Visits Re quested Visits Authorized [id number] 1 1 Encounter Details Date Type Department Care Team (Latest Contact Info) Description 12/21/2021 6:05 PM CDT - 12/22/2021 6:25 PM CDT Hospital Encounter [place] [facility] [address] [facility] [id number] Cal Dupree MD [address] [place] [id number] Jasson Valdivia MD [address] [place] [phone] Abnormal Lab Results Discharge Disposition: Home with Home Health Care Social History Tobacco Use Types Packs/Day Years Used Date Smoking Tobacco: Former Cigarettes Smokeless Tobacco: Never Alcohol Use Standard Drinks/Week Comments Not Currently 0 (1 standard drink = 0.6 oz pur e alcohol) Comments No Sex and Gender Information Value Date Recorded Sex Assigned at Not on file Legal 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 [facility] Gender Identity Not on file Sexual Orientation Not on file COVID-19 Exposure Response Date Recorded In the last 10 days, have yo u been in contact with someone who was confirmed or suspected to have Coronavirus/COVID-19? No / Unsure 12/21/2021 10:24 PM CDT documented as of this encounter Last Filed Vital Signs Vital Sign Reading Time Taken Comments Blood Pressure 136/93 12/22/2021 12:25 PM CDT Pulse 84 12/22/2021 12:25 PM CDT Temperature 37 ??C (98.6 ??F) 12/22/2021 12:25 PM CDT Respiratory Rate 20 12/22/2021 12:25 PM CDT Oxygen Saturation 94% 12/22/2021 12:25 PM CDT Inhaled Oxygen Concentration - - Weight 79.8 kg (176 lb) 12/22/2021 5:25 AM CDT Height 172.7 cm (5' 8 ) 12/21/2021 6:34 PM CDT Body Mass Index 26.76 12/21/2021 6:34 PM CDT documented in this encounter Functional [...] office or shopping? Yes 12/21/2021 10:33 PM CDT Ana Laura Kevin RN Active * RETIRED Are you deaf [...] or making decisions? Yes 12/21/2021 10:33 PM CDT Sepideh Kevin RN Active * Because of a physical, mental, or emotional condition, do you have serious difficulty concentrating, remembering, or making decisions? Answer Entry Date Author Status Yes 12/21/2021 10:33 PM CDT Sepideh Kevin R N Active documented in this encounter Discharge Summaries * KELSIE Alcocer - 12/22/2021 10:24 AM CDT Images from the original note were not included. Physician Discharge Summary Patient ID: Trisha Waite. female. [id number]. Admit date: 12/21/2021 6:05 PM Discharge date and time: 12/22/21 Admitting Physician: Jasson Valdivia MD Primary Care Physician: JASSON VALDIVIA MD Attending Provider: Jasson Valdivia MD Discharge Physician: Dr. Valdivia /DON ALCOCER Primary Diagnoses: 1. Acute Kidney Injury 2. Urinary Tract Infection Secondary Diagnosis: 1. COPD 2. Hypertension 3. Hyperlipidemia 4. Chronic Kidney Disease, Stage 4 Admission Condition: fair Discharged Condition: Stable Code Status: Full Code Indication for Admission: Chief Complaint Patient presents with Abnormal Lab Results Reason for hospitalization: Acute Kidney Injury, Urinary Tract Infection Hospital Course: Trisha Waite was admitted on 12/21/2021 6:05 PM for acute kidney injury and urinary tract infection. H&P from admission: Trisha Waite is a 71-year-old female with a history of chronic kidney disease stage 3, COPD, HLD, HTN, ischemic stroke, and depression who presented to the ER with complaints of abnormal laboratory results. The patient follows with athletic equipment custodian, Dr. Olivas, out of [facility] and had recent blood work done which has showed elevated BUN (49) and creatinine (3.81). Her athletic equipment custodian called and recommended she go to the emergency department for further work up and evaluation. Patient reported that she had a few episodes of vomiting a few days prior to the lab tests. Her son also stated that her Furosemide was recently increased due to excessive bilateral lower extremity edema. He states she was taking it 3 times daily, then twice daily just a few days prior to the lab results. Patient states during this time she had difficulty producing urine. Reports she was not drinking as much fluid as she normally does, but was still unable to produce a lot of urine which is unusual for her. She denies dysuria, urinary frequency or urgency. No fever, chills, chest pain, shortness of breath, abdominal pain, diarrhea, constipation or rashes. She denies recent illnesses or sick contacts. No additional changes to medications. She denied tobacco or alcohol use. While in the ED, her workup was significant for elevated BUN (48) and creatinine (3.47) as well as new leukocytosis of 11.2.Her urinalysis showed leukocyte esterase and 20-50 WBCs, so she was started on Rocephin for urinarytract infection and IV fluids were started. During hospital course, patient continued to receive IV fluids. Morning labs showed improving BUN and creatinine that was consistent with her baseline at 2.73. Her sodium was high at 146, so stopped IV fluids and encouraged PO hydration. Continued rocephin for urinary tract infection and will discharge home with oral antibiotics. She will continue residential home health (nursing and physical therapy) upon discharge. Follow up with PCP within one week and continue following with athletic equipment custodian. Patient will be discharged home in stable condition. Consults: none Significant Diagnostic Studies: Radiology Results (Last 30 days) None Vital Signs at Discharge: Filed Vitals: 12/22/21 0509 12/22/21 0525 12/22/21 0922 12/22/21 1225 BP: (!) 173/83 (!) 146/82 (!) 136/93 Pulse: 73 81 84 Resp: 18 20 20 Temp: 98.8 ??F (37.1 ??C) 98.8 ??F (37.1 ??C) 98.6 ??F (37 ??C) TempSrc: Tympanic Tympanic SpO2: 97% 97% 94% Weight: 79.8 kg (176 lb) Height: Last labs past 24 hours: Recent Results (from the past 24 hour(s)) CBC W/DIFF AUTOMATED Collection Time: 12/21/21 6:45 PM Result Value Ref Range WBC 11.2 (H) 4.0 - 10.8 x10'3/uL RBC 4.13 4.10 - 5.40 x10'6/uL HGB 12.7 12.0 - 16.0 G/DL HCT 39.4 36.0 - 47.0 % MCV 95.4 78.0 - 100.0 FL MCH 30.8 27.0 - 31.0 PG MCHC 32.2 (L) 33.0 - 36.0 G/DL RDW 13.4 11.5 - 14.5 % PLT 297 150 - 350 x10'3/uL MPV 10.3 7.4 - 10.4 FL Differential Comment NORMAL REFERENCE RANGE NOT ESTABLISHED FOR THE PROPORTIONAL LEUKOCYTE DIFFERENTIAL. SEG NEUTROPHILS 73.7 % LYMPHOCYTES 14.4 % MONOCYTES 8.7 % EOSINOPHILS 2.1 % BASOPHILS 0.7 % IMMATURE GRANS 0.4 % NRBC 0.0 % ABS. NEUTROPHILS 8.28 1.60 - 8.30 x10'3/uL ABS. LYMPHOCYTES 1.62 0.80 - 4.70 x10'3/uL ABS. MONOCYTES 0.98 0.00 - 1.50 x10'3/uL ABS. EOSINOPHILS 0.24 0.00 - 0.40 x10'3/uL ABS. BASOPHILS 0.08 0.00 - 0.20 x10'3/uL ABS. IMMATURE GRANULOCYTES 0.04 (H) 0.00 - 0.03 x10'3/uL ABS. NUCLEATED RBC'S 0.00 0.00 x10'3/uL COMPREHENSIVE METABOLIC PANEL Collection Time: 12/21/21 6:45 PM Result Value Ref Range SODIUM 144 136 - 145 MMOL/L POTASSIUM 4.2 3.5 - 5.1 MMOL/L CHLORIDE S/P/B 108 (H) 98 - 107 MMOL/L CO2 25.5 21.0 - 32.0 MMOL/L GLUCOSE 119 (H) 70 - 99 MG/DL BUN 48 (H) 6 - 24 MG/DL CREATININE S/P/B 3.47 (H) 0.55 - 1.02 MG/DL CALCIUM 9.2 8.4 - 10.5 MG/DL BILIRUBIN TOTAL S/P/B 0.4 0.2 - 1.0 MG/DL ALKALINE PHOSPHATASE S/P/B 112 55 - 142 U/L AST 13 (L) 15 - 37 U/L ALT 17 14 - 59 U/L TOTAL PROTEIN S/P/B 7.2 6.4 - 8.2 G/DL ALBUMIN S/P/B 3.3 (L) 3.4 - 5.0 G/DL ANION GAP 10.5 5.0 - 15.0 MMOL/L OSMOLALITY (CALC) 312 MOSM/KG GFR ESTIMATE 14 (L) >89 ML/MIN/1.73 M2 GFR NOTES GFR REFERENCES: URINALYSIS WI REFLEX TO CULTURE Collection Time: 12/21/21 9:15 PM Specimen: URINE, CLEAN CATCH Result Value Ref Range COLOR (U) YELLOW TRANSPARENCY CLEAR Specific Thayne (U) 1.015 1.000 - 1.025 U PH 6.5 5.0 - 8.0 LEUKOCYTE ESTERASE 1+ (A) NEGATIVE NITRITES NEGATIVE NEGATIVE PROTEIN (U) 2+ (A) NEGATIVE URINE GLUCOSE NEGATIVE NEGATIVE U KETONES NEGATIVE NEGATIVE UROBILINOGEN 0.2 <1.0 EU/DL BILIRUBIN (U) NEGATIVE NEGATIVE BLOOD TRACE (A) NEGATIVE WBC/HPF 20-50 (A) 0 - 5 /HPF RBC/HPF 5-10 (A) 0 - 5 /HPF EPI/LPF FEW /LPF BACTERIA (URINE) 1+ /HPF MUCUS PRESENT CULTURE & SENSITIVITY INDICATED? SPECIMEN SETUP FOR CULTURE CULTURE URINE Collection Time: 12/21/21 9:15 PM Specimen: URINE, CLEAN CATCH Result Value Ref Range Spec. Description URINE CLEAN CATCH Special Requests: NO SPECIAL REQUEST Culture Result: EQUAL OR >100,000 CFU/mL GRAM NEGATIVE RODS BASIC METABOLIC PANEL Collection Time: 12/22/21 4:22 AM Result Value Ref Range SODIUM 146 (H) 136 - 145 MMOL/L POTASSIUM 4.0 3.5 - 5.1 MMOL/L CHLORIDE S/P/B 112 (H) 98 - 107 MMOL/L CO2 22.9 21.0 - 32.0 MMOL/L GLUCOSE 105 (H) 70 - 99 MG/DL BUN 36 (H) 6 - 24 MG/DL CREATININE S/P/B 2.73 (H) 0.55 - 1.02 MG/DL CALCIUM 8.5 8.4 - 10.5 MG/DL ANION GAP 11.1 5.0 - 15.0 MMOL/L OSMOLALITY (CALC) 311 MOSM/KG GFR ESTIMATE 18 (L) >89 ML/MIN/1.73 M2 GFR NOTES GFR REFERENCES: Discharge Medications: Medication List START taking these medications Morning Afternoon Evening Bedtime As Needed sulfamethoxazole-trimethoprim 800-160 MG tablet Commonly known as: BACTRIM DS Take 1 tablet by mouth 2 (two) times daily for 5 days. Start 12/23/2021 CONTINUE taking these medications Morning Afternoon Evening Bedtime As Needed amLODIPine 5 MG tablet Commonly known as: NORVASC 5 mg daily. Last time this was given: 5 mg on December 22, 2021 9:29 AM Given this a.m. aspirin EC 81 MG tablet Commonly known as: ECOTRIN Take 81 mg by mouth daily. Last time this was given: 81 mg on December 22, 2021 9:28 AM Given this a.m. furosemide 20 MG tablet Commonly known as: LASIX Take 20 mg by mouth daily. Take 12/23/2021 gabapentin 600 MG tablet Commonly known as: NEURONTIN TAKE ONE TABLET BY MOUTH IN THE MORNING 1 IN EVENING AND 1 BEFORE BEDTIME Last time this was given: Ask your nurse or doctor Given this a.m. Take tonight metoprolol succinate ER 50 MG 24 hr tablet Commonly known as: TOPROL-XL Take 50 mg by mouth daily. Last time this was given: 50 mg on December 22, 2021 9:28 AM Given this a.m. vitamin D3 (cholecalciferol) 5000 UNITS capsule Take 1 capsule by mouth daily. Last time this was given: Ask your nurse or doctor Given this a.m. Medications Discontinued during this hospitalization: Disposition: discharged to home, lives with son. Continue home health (residential) Durable Medical Equipment Needed: none Patient Instructions: Activity: activity as tolerated Diet: renal diet Wound Care: none needed Follow-up appointments: PCP in one week, athletic equipment custodian as scheduled Findings that require further workup: elevated serum creatinine, follow up lab work ordered Followup Lab Orders: Chemistry Profile - CMP on Sunday Lab Frequency Next Occurrence Time Spent on Discharge Less than 30 minutes Signed: KELSIE ALCOCER [facility] PA-S Patient seen and staffed with: Sanna Felder NP Cosigned by Jasson Valdivia MD at 12/26/2021 2:54 PM CDT documented in this encounter Discharge Instructions * Attachments The following attachments cannot be sent through Care Everywhere. * Kidney Failure Discharge Instructions (Martiniquais) * Acute Kidney Injury Discharge Instructions (Martiniquais) documented in this encounter Medications at Time [...] 12/22/2021 12/27/2021 documented as of this encounter Progress Notes * Sophy Fairchild RN - 12/22/2021 5:37 PM CDT Problem: Discharge Planning Goal: Knowledge of discharge instructions Outcome: Adequate for Discharge Problem: Pain control/comfort Goal: Promote pain control/comfort Outcome: Adequate for Discharge Problem: Skin integrity, Impaired-wound Goal: Absence of new skin breakdown Outcome: Adequate for Discharge Goal: Evidence of wound healing Outcome: Adequate for Discharge Problem: Skin integrity, Impaired-pressure injury/ulcer Goal: Absence of new skin breakdown Outcome: Adequate for Discharge Goal: Evidence of pressure injury/ulcer healing Outcome: Adequate for Discharge Problem: Skin integrity, at risk Goal: Absence of new skin breakdown Outcome: Adequate for Discharge Problem: Moisture associated skin impairment Goal: Reduce moisture exposure Outcome: Adequate for Discharge Goal: Evidence of wound healing Outcome: Adequate for Discharge Goal: Evidence of pressure injury/ulcer healing Outcome: Adequate for Discharge Goal: Absence of new skin breakdown Outcome: Adequate for Discharge Problem: Reduced risk for falls/injury Goal: Reduced Risk for Falls/Injury Outcome: Adequate for Discharge Goal: Reduced Risk of Confusion (Acute vs Chronic) Outcome: Adequate for Discharge Goal: Reduced Risk of Symptomatic Depression Outcome: Adequate for Discharge Goal: Reduced Risk of Altered Elimination Outcome: Adequate for Discharge Goal: Reduced Risk of Dizziness/Vertigo/Balance Outcome: Adequate for Discharge Goal: Reduced Risk of Polypharmacy Outcome: Adequate for Discharge * Dannielle Ramirez RN - 12/22/2021 1:25 PM CDT Please fax [facility], [place] Summary when done, and AVS to [facility] at [phone] * Dannielle Ramirez RN - 12/22/2021 11:01 AM CDT Met with patient in room. Introduced self and purpose for Assessment. Patient currently lives with her son, DIL and 3 grandchildren. She is independent in mobility. Has a cane but does not use it at present. She states she does the laundry, and her own personal care, but family members do all else and her son administers and monitors her medications. She is current with [facility] thru [facility]. She reports that she has SN and Therapy at present. Email sent to [facility] to notify of admission. Reports she is going home this evening and her son will transport. Will need order to resume [facility] at sd. 12/22/21 1051 Referral Data Referral Reason Discharge Planning Source of Information Patient;Physician;Chart review Patient Information OB Patient < 19 yrs old No Primary Caregiver Self Support System Immediate family Baseline ADL's Functional Status Independent Living Arrangements Children (Son, Daughter in law and 3 grandchildren) Type of Residence Private residence Ambulation Assistance No Active DME Cane (Was not using cane UROLOGIST PHYSICIAN) Bathing/Grooming Assistance No Dressing Assistance No Behavior Oriented;Forgetful;Cooperative Communication Talks;Understands speaking;Understands Martiniquais Current Services Being Provided Home Health [facility];Physical therapy;Occupational therapy ([facility]) Socioeconomic Needs Caregiver Needed No At Risk [...] No Legal Information Legal forms Power of Divinity Teacher for health care (Son Demond) Anticipated DC Plan Living Arrangements Family members;Children Support Systems Children Type of Residence Private residence Assistance Needed Yes Discharge assistance Home Health ([facility] to resume) Patient expects to be discharged to: Home Psychosocial Needs With Indication for Social Work Consult Chaptered patient No * Sepideh Bee RN-LP - 12/22/2021 5:07 AM CDT Problem: Discharge Planning Goal: Knowledge of discharge instructions Outcome: Progressing Problem: Pain control/comfort Goal: Promote pain control/comfort Outcome: Progressing Problem: Skin integrity, Impaired-wound Goal: Absence of new skin breakdown Outcome: Progressing Goal: Evidence of wound healing Outcome: Progressing Problem: Skin integrity, Impaired-pressure injury/ulcer Goal: Absence of new skin breakdown Outcome: Progressing Goal: Evidence of pressure injury/ulcer healing Outcome: Progressing Problem: Skin integrity, at risk Goal: Absence of new skin breakdown Outcome: Progressing Problem: Moisture associated skin impairment Goal: Reduce moisture exposure Outcome: Progressing Goal: Evidence of wound healing Outcome: Progressing Goal: Evidence of pressure injury/ulcer healing Outcome: Progressing Goal: Absence of new skin breakdown Outcome: Progressing Problem: Reduced risk for falls/injury Goal: Reduced Risk for Falls/Injury Outcome: Progressing Goal: Reduced Risk of Confusion (Acute vs Chronic) Outcome: Progressing Goal: Reduced Risk of Symptomatic Depression Outcome: Progressing Goal: Reduced Risk of Altered Elimination Outcome: Progressing Goal: Reduced Risk of Dizziness/Vertigo/Balance Outcome: Progressing Goal: Reduced Risk of Polypharmacy Outcome: Progressing documented in this encounter H&P Notes * CHANDA Alcocer-YULY - 12/22/2021 9:39 AM CDT Admission History and Physical History Primary Care Provider: JASSON VALDIVIA MD Admitting Provider: Jasson Valdivia MD Attending Provider: Jasson Valdivia MD Admission date: 12/21/2021 6:05 PM Trisha Waite is a 71-year-old female with a history of chronic kidney disease stage 3, COPD, HLD, HTN, ischemic stroke, and depression who presented to the ER with complaints of abnormal laboratory results. The patient follows with athletic equipment custodian, Dr. Olivas, out of [facility] and had recent blood work done which has showed elevated BUN (49) and creatinine (3.81). Her athletic equipment custodian called and recommended she go to the emergency department for further work up and evaluation. Patient reported that she had a few episodes of vomiting a few days prior to the lab tests. Her son also stated that her Furosemide was recently increased due to excessive bilateral lower extremity edema. He states she was taking it 3 times daily, then twice daily just a few days prior to the lab results. Patient states during this time she had difficulty producing urine. Reports she was not drinking as much fluid as she normally does, but was still unable to produce a lot of urine which is unusual for her. She denies dysuria, urinary frequency or urgency. No fever, chills, chest pain, shortness of breath, abdominal pain, diarrhea, constipation or rashes. She denies recent illnesses or sick contacts. No additional changes to medications. She denied tobacco or alcohol use. While in the ED, her workup was significant for elevated BUN (48) and creatinine (3.47) as well as new leukocytosis of 11.2.Her urinalysis showed leukocyte esterase and 20-50 WBCs, so she was started on Rocephin for urinarytract infection and IV fluids were started. Past Medical History: Diagnosis Date ??? CKD (chronic kidney disease) stage 3, GFR 30-59 ml/min (CMS/HCC) ??? COPD (chronic obstructive pulmonary disease) (CMS/HCC) [...] 5 MG tablet 5 mg daily. 12/21/20 Yes Doc [facility] aspirin EC 81 MG tablet Take 81 mg by mouth daily. Yes Doc [facility] furosemide (LASIX) 20 MG tablet Take 20 mg by mouth daily. 11/23/21 Yes Doc [facility] gabapentin (NEURONTIN) 600 MG tablet TAKE ONE TABLET BY MOUTH IN THE MORNING 1 IN EVENING AND 1 BEFORE BEDTIME 12/19/21 Yes Huber Milligan MD metoprolol succinate ER 50 MG 24 hr tablet Take 50 mg by mouth daily. 11/08/18 Yes Doc [facility] vitamin D3, cholecalciferol, 5000 UNITS capsule Take 1 capsule by mouth daily. Yes Doc [facility] ??? amLODIPine 5 mg Oral Daily ??? aspirin EC 81 mg Oral Daily ??? cefTRIAXone 1 g Intravenous Q24H ??? enoxaparin 30 mg Subcutaneous Q24H ??? gabapentin 600 mg Oral TID ??? influenza 0.5 mL Intramuscular Once ??? metoprolol succinate ER 50 mg Oral Daily ??? vitamin D3 (cholecalciferol) 5,000 Units Oral Daily acetaminophen, albuterol No Known Allergies ROS 10 point ROS negative except otherwise specified in HPI Physical Exam Filed Vitals: 12/21/21 2254 12/22/21 0509 12/22/21 0525 12/22/21 0922 BP: (!) 173/83 (!) 146/82 Pulse: 73 81 Resp: 18 20 Temp: 98.8 ??F (37.1 ??C) 98.8 ??F (37.1 ??C) TempSrc: Tympanic SpO2: 97% 97% Weight: 81.1 kg (178 lb 12.8 oz) 79.8 kg (176 lb) Height: Physical Exam Vitals and nursing note reviewed. Constitutional: Appearance: Normal appearance. Comments: Sitting up in hospital recliner HENT: Head: Normocephalic and atraumatic. Nose: Nose normal. Mouth/Throat: Mouth: Mucous membranes are moist. Eyes: Conjunctiva/sclera: Conjunctivae normal. Pupils: Pupils are equal, round, and reactive to light. Cardiovascular: Rate and Rhythm: Normal rate and regular rhythm. Heart sounds: Normal heart sounds. Pulmonary: Effort: Pulmonary effort is normal. Breath sounds: Normal breath sounds. Abdominal: Palpations: Abdomen is soft. Tenderness: There is no abdominal tenderness. There is no right CVA tenderness or left CVA tenderness. Musculoskeletal: General: Normal range of motion. Cervical back: Normal range of motion. Right lower leg: No edema. Left lower leg: No edema. Skin: General: Skin is warm and dry. Findings: No rash. Neurological: Mental Status: She is alert and oriented to person, place, and time. Mental status is at baseline. Recent Labs Lab 12/20/2195412/21/211844 WBC 10.7 11.2* RBC 4.48 4.13 HGB 13.8 12.7 HCT 43.3 39.4 MCV 96.7 95.4 MCH 30.8 30.8 MCHC 31.9* 32.2* PLT 313 297 RDW 13.7 13.4 MPV 10.8* 10.3 NEUC 8.36* 8.28 LYMC 1.08 1.62 MONOC 0.97 0.98 EOSC 0.14 0.24 BASOC 0.08 0.08 Recent Labs Lab 12/20/2195412/21/21184412/22/21421 NA 141 144 146* K 3.9 4.2 4.0 CL 104 108* 112* CO2 24.1 25.5 22.9 AGAP 12.9 10.5 11.1 BUN 49* 48* 36* CR 3.81* 3.47* 2.73* GLU 80 119* 105* CA 9.1 9.2 8.5 TP -- 7.2 -- ALB -- 3.3* -- TBIL -- 0.4 -- ALKP -- 112 -- AST 13* 13* -- ALT -- 17 -- No results for input(s): APTT, INR in the last 168 hours. Invalid input(s): PT No results for input(s): TROP, TROPIWB in the last 168 hours. Recent Labs Lab 12/21/21184412/22/21421 NA 144 146* K 4.2 4.0 CL 108* 112* CO2 25.5 22.9 BUN 48* 36* CR 3.47* 2.73* CA 9.2 8.5 GLU 119* 105* AGAP 10.5 11.1 TP 7.2 -- ALB 3.3* -- ALT 17 -- WBC 11.2* -- HGB 12.7 -- PLT 297 -- No results found for this or any previous visit. No results found for this visit on 12/21/21 (from the past 840 hour(s)). No results found for this visit on 12/21/21 (from the past 840 hour(s)). No results found. Assessment Active Problems: MOIRA (acute kidney injury) ([facility]) SNOMED CT(R): ACUTE INJURY OF KIDNEY Plan #Acute Kidney Injury ?? Elevated BUN (48) and serum creatinine (3.47) found in the ED ?? Started on IV fluids, continue ?? Repeat blood work showed improved BUN (36) and creatinine (2.73) which is consistent with her baseline ?? Urinating normally, without problems ?? Encourage PO hydration ?? Follow #Urinary Tract Infection #Leukocytosis ?? Urinalysis in the ED showed leukocyte esterase and 20-50 WBC's ?? CBC significant for leukocytosis of 11.2 ?? Urine culture obtained in ED, still pending ?? Started on Rocephin, continue (day 2) ?? Start oral antibiotics after discharge #Chronic Kidney Disease, Stage 4 ?? Follows with Dr. Olivas at [facility], continue #Hypertension #Hyperlipidemia ?? Stable ?? Continue to monitor #COPD ?? Stable ?? On room air ?? No shortness of breath ?? Follow KELSIE ALCOCER [facility] PA-S Patient seen and staffed with: Sanna Felder NP Cosigned by Jasson Valdivia MD at 12/26/2021 2:54 PM CDT documented in this encounter ED Notes * Maggie Nelson RN - 12/21/2021 6:38 PM CDT PT ARRIVES PER POV FROM HOME. PT [facility] WAS CALLED BY BRIM ROUNDER TODAY AND TOLD TO COME TOER FOR ELEVATED CREATININE. [facility] CREATININE WAS 3.8. * Cal Dupree MD - 12/21/2021 6:03 PM CDT eMERGENCY dEPARTMENT eNCOUnter CHIEF COMPLAINT Chief Complaint Patient presents with ??? Abnormal Lab Results HPI HPI Trisha Waite is a 71-year-old female who presents to the ER with a complaint of abnormal laboratory results. 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 BUN and creatinine came back elevated so she was recommended to come to the emergency department. Son provides most of the history as the patient is a somewhat poor historian due to previous CVA. She did have1 episode of vomiting several days ago but he states that overall she has been doing fairly well with no change in appetite oral intake or urinary symptoms. No other complaints at this time. ALLERGIES No Known Allergies CURRENT MEDICATIONS Current Outpatient Medications Medication Sig ??? albuterol 0.63 MG/3ML nebulizer solution Take 1 ampule by nebulization every 6 (six) hours as needed for Wheezing. ??? amLODIPine 5 MG tablet 5 mg daily. ??? aspirin EC 81 MG tablet Take 81 mg by mouth daily. ??? furosemide 20 MG tablet 20 mg. Take Sunday and sunday ??? gabapentin (NEURONTIN) 600 MG tablet TAKE ONE TABLET BY MOUTH IN THE MORNING 1 IN EVENING AND 1BEFORE BEDTIME ??? metoprolol succinate ER 50 MG 24 hr tablet Take 50 mg by mouth daily. ??? vitamin D3, cholecalciferol, 5000 UNITS capsule Take 1 capsule by mouth daily. PAST MEDICAL HISTORY Past Medical History: Diagnosis Date ??? CKD (chronic kidney disease) stage 3, GFR 30-59 ml/min ([facility]) ??? COPD (chronic obstructive pulmonary disease) ([facility]) ??? Depression ??? Displaced fracture of proximal end of right humerus 11/06/2018 ??? HLD (hyperlipidemia) ??? Hypertension ??? Ischemic stroke (CMS/HCC) ??? Neuropathy ??? UTI (urinary tract infection) SURGICAL HISTORY Past Surgical History: Procedure Laterality Date ??? JOINT REPLACEMENT ??? SHOULDER SURGERY ??? TOTAL HIP ARTHROPLASTY bilateral SOCIAL HISTORY Social History Socioeconomic History ??? Marital status: Tobacco Use ??? Smoking status: Former Smoker Packs/day: 1.00 Types: Cigarettes ??? Smokeless tobacco: Never Used Vaping Use ??? Vaping Use: Never used Substance and Sexual Activity ??? Alcohol use: Not Currently ??? Drug use: Yes Types: Marijuana FAMILY HISTORY Family History Problem Relation Name Age of Onset ??? Heart Attack Mother REVIEW OF SYSTEMS Review of Systems All other ROS negative unless noted above in HPI. PHYSICAL EXAM Physical Exam Filed Vitals: 12/21/21 1834 12/21/21 2030 12/21/21 2100 BP: (!) 161/93 Pulse: 71 Resp: 18 Temp: 97.7 ??F (36.5 ??C) TempSrc: Temporal SpO2: 96% 92% 92% Weight: 78.5 kg (173 lb) Height: 5' 8 (1.727 m) The patient is a well developed and well nourished adult female in no distress, alert and oriented. HEENT: PERRL, EOMI Throat without lesions, mucous membranes moist NECK: Supple without adenopathy or rigidity CHEST: Lungs clear and equal to auscultation Heart regular rate and rhythm without murmur ABD: Soft, NABS, non tender EXT: No clubbing, cyanosis, edema NEURO: CN II-XII intact, no focal weakness SKIN: No rash or significant lesions EKG RADIOLOGY No orders to display LABS Results for orders placed or performed during the hospital encounter of 12/21/21 CBC W/DIFF AUTOMATED Result Value Ref Range WBC 11.2 (H) 4.0 - 10.8 x10'3/uL RBC 4.13 4.10 - 5.40 x10'6/uL HGB 12.7 12.0 - 16.0 G/DL HCT 39.4 36.0 - 47.0 % MCV 95.4 78.0 - 100.0 FL MCH 30.8 27.0 - 31.0 PG MCHC 32.2 (L) 33.0 - 36.0 G/DL RDW 13.4 11.5 - 14.5 % PLT 297 150 - 350 x10'3/uL MPV 10.3 7.4 - 10.4 FL Differential Comment NORMAL REFERENCE RANGE NOT ESTABLISHED FOR THE PROPORTIONAL LEUKOCYTE DIFFERENTIAL. SEG NEUTROPHILS 73.7 % LYMPHOCYTES 14.4 % MONOCYTES 8.7 % EOSINOPHILS 2.1 % BASOPHILS 0.7 % IMMATURE GRANS 0.4 % NRBC 0.0 % ABS. NEUTROPHILS 8.28 1.60 - 8.30 x10'3/uL ABS. LYMPHOCYTES 1.62 0.80 - 4.70 x10'3/uL ABS. MONOCYTES 0.98 0.00 - 1.50 x10'3/uL ABS. EOSINOPHILS 0.24 0.00 - 0.40 x10'3/uL ABS. BASOPHILS 0.08 0.00 - 0.20 x10'3/uL ABS. IMMATURE GRANULOCYTES 0.04 (H) 0.00 - 0.03 x10'3/uL ABS. NUCLEATED RBC'S 0.00 0.00 x10'3/uL COMPREHENSIVE METABOLIC PANEL Result Value Ref Range SODIUM 144 136 - 145 MMOL/L POTASSIUM 4.2 3.5 - 5.1 MMOL/L CHLORIDE S/P/B 108 (H) 98 - 107 MMOL/L CO2 25.5 21.0 - 32.0 MMOL/L GLUCOSE 119 (H) 70 - 99 MG/DL BUN 48 (H) 6 - 24 MG/DL CREATININE S/P/B 3.47 (H) 0.55 - 1.02 MG/DL CALCIUM 9.2 8.4 - 10.5 MG/DL BILIRUBIN TOTAL S/P/B 0.4 0.2 - 1.0 MG/DL ALKALINE PHOSPHATASE S/P/B 112 55 - 142 U/L AST 13 (L) 15 - 37 U/L ALT 17 14 - 59 U/L TOTAL PROTEIN S/P/B 7.2 6.4 - 8.2 G/DL ALBUMIN S/P/B 3.3 (L) 3.4 - 5.0 G/DL ANION GAP 10.5 5.0 - 15.0 MMOL/L OSMOLALITY (CALC) 312 MOSM/KG GFR ESTIMATE 14 (L) >89 ML/MIN/1.73 M2 GFR NOTES GFR REFERENCES: URINALYSIS WI REFLEX TO CULTURE Specimen: URINE, CLEAN CATCH Result Value Ref Range COLOR (U) YELLOW TRANSPARENCY CLEAR Specific Thayne (U) 1.015 1.000 - 1.025 U PH 6.5 5.0 - 8.0 LEUKOCYTE ESTERASE 1+ (A) NEGATIVE NITRITES NEGATIVE NEGATIVE PROTEIN (U) 2+ (A) NEGATIVE URINE GLUCOSE NEGATIVE NEGATIVE U KETONES NEGATIVE NEGATIVE UROBILINOGEN 0.2 <1.0 EU/DL BILIRUBIN (U) NEGATIVE NEGATIVE BLOOD TRACE (A) NEGATIVE WBC/HPF 20-50 (A) 0 - 5 /HPF RBC/HPF 5-10 (A) 0 - 5 /HPF EPI/LPF FEW /LPF BACTERIA (URINE) 1+ /HPF MUCUS PRESENT CULTURE & SENSITIVITY INDICATED? SPECIMEN SETUP FOR CULTURE ED MEDICATIONS Medications sodium chloride 0.9% bolus infusion 1,000 mL (1,000 mLs Intravenous New Bag 12/21/212048) cefTRIAXone (ROCEPHIN) 1 g in sodium chloride 0.9 % 50 mL IVPB (has no administration in time range) sodium chloride 0.9% bolus infusion 1,000 mL (0 mLs Intravenous Infusion Stop Time 12/21/212043) PROCEDURES Procedures CONSULTS: ED COURSE & MEDICAL DECISION MAKING MDM I discussed the patient with Dr. Valdivia. Hydration has been initiated. During the second liter of fluids the patient finally was able to give a urine specimen which I believe is a sign that she is somewhat volume depleted. It does show infection so its been cultured and antibiotics are initiated. [place] admit her for further hydration and antibiotics. FINAL IMPRESSION SNOMED CT(R) 1. MOIRA (acute kidney injury) (CMS/[facility]) ACUTE INJURY OF KIDNEY 2. UTI (urinary tract infection) URINARY TRACT INFECTIOUS DISEASE No follow-up provider specified. New Prescriptions No medications on file Cal Dupree MD 12/21/212147 documented in this encounter Plan of Treatment Scheduled Referrals Name Type Priority Associated Diagnoses Orde r Schedule Abbreviated Ambulatory Referral to Home Health Referral Routine MOIRA (acute kidney injury) Ordered: 12/22/2021 documented as of this encounter Goals Goal Patient Goal Type Associated Problems Recent Progress Patient-Stated? Author Patient will return to prior living situation and remain independent in ADLs upon discharge from hospital General No Sara Lopez RN Safety ? Patient/family will have appropriate support at home upon discharge Lifestyle No Danneille Ramirez RN documented as of this encounter Procedures Procedure Name Priority Date/Time Associated Diagnosis Comments BASIC METABOLIC PANEL Routine 12/22/2021 4:22 AM CDT URINALYSIS WI REFLEX TO CULTURE STAT 12/21/2021 9:15 PM CDT URINE BACTERIA CULTURE Routine 9:15 PM CDT COMPREHENSIVE METABOLIC PANEL STAT 12/21/2021 6:45 PM CDT CBC W/DIFF AUTOMATED STAT 12/21/2021 6:45 PM CDT documented in this encounter Results * (ABNORMAL) BASIC METABOLIC PANEL (12/22/2021 4:22 AM CDT) SODIUM S/P/B 146(H) 136 - 145 MMOL/L 12/22/2021 5:27 AM CDT [facility] POTASSIUM S/P/B 4.0 3.5 - 5.1 MMOL/L 12/22/2021 5:27 AM CDT [facility] CHLORIDE S/P/B 112(H) 98 - 107 MMOL/L 12/22/2021 5:27 AM CDT [facility] CO2 22.9 21.0 - 32.0 MMOL/L 12/22/2021 5:27 AM CDT [facility] GLUCOSE 105(H) 70 - 99 MG/DL 12/22/2021 5:27 AM CDT [facility] Comment: FASTING GLUCOSE 100 TO 125 MG/DL IS CONSISTENT WITH IMPAIRED FASTING GLUCOSE. FASTING GLUCOSE >125 MG/DL IS CONSISTENT WITH DIABETES. RANDOM GLUCOSE >200 MG/DL WITH HYPERGLYCEMIC SYMPTOMS IS CONSISTENT WITH DIABETES. PER ADA GUIDELINES BUN 36(H) 6 - 24 MG/DL 12/22/2021 5:27 AM CDT [facility] CREATININE S/P/B 2.73(H) 0.55 - 1.02 MG/DL 12/22/2021 5:27 AM CDT [facility] CALCIUM S/P/B 8.5 8.4 - 10.5 MG/DL 12/22/2021 5:27 AM CDT [facility] ANION GAP 11.1 5.0 - 15.0 MMOL/L 12/22/2021 5:27 AM CDT [facility] OSMOLALITY (CALC) 311 MOSM/KG 022 5:27 AM CDT [facility] Comment:REFERENCE RANGE NOT ESTABLISHED GFR ESTIMATE 18(L) >89 ML/MIN/1. 73 M2 12/22/2021 5:27 AM CDT [facility] GFR NOTES GFR REFERENCE S: 12/22/2021 5:27 AM CDT [facility] Comment: THE ESTIMATED GFR IS [...] ml/min/1.73 m2 G5,KIDNEY FAILURE: <15 ml/min/1.73 m2 12/22/2021 4:22 AM CDT Cal Dupree MD LABORATORY Final Result [facility] [address] [place] [address], * CULTURE URINE (12/21/2021 9:15 PM CDT) SPEC DESCRIPTION URINE CLEAN CATCH 12/21/2021 9:47 PM CDT [facility] SPECIAL REQUESTS NO SPECIAL REQUEST 12/21/2021 9:47 PM CDT [facility] CULTURE RESULT EQUAL OR >100,000 CFU/mL CITROBACTER YOUNGAE 12/23/2021 9:49 AM CDT [facility] URINE SPECIMEN OBTAINED BY CLEAN CATCH PROCEDURE / Unknown 12/21/2021 9:15 PM CDT 12/21/2021 9:47 PM CDT Narrative Organism Antibiotic Method Susceptibility Citrobacter youngae AMOXICILLIN/CLAVULANIC A HOLLY (TAN K) Resistant Citrobacter youngae AZTREONAM HOLLY (VITEK) Sensitive Citrobacter youngae CEFEPIME HOLLY (VITEK) Sensitive Citrobacter youngae CEFTRIAXONE HOLLY (VITEK) Sensitive Citrobacter youngae CEFAZOLIN HOLLY (VITEK) Resistant Citrobacter youngae CIPROFLOXACIN HOLLY (VITEK) Sensitive Citrobacter youngae ERTAPENEM HOLLY (VITEK) Sensitive Citrobacter youngae NITROFURANTOIN HOLLY (VITEK) Sensitive Citrobacter youngae GENTAMICIN HOLLY (VITEK) Sensitive Citrobacter youngae IMIPENEM HOLLY (VITEK) Sensitive Citrobacter youngae LEVOFLOXACIN HOLLY (VITEK) Sensitive Citrobacter youngae MEROPENEM HOLLY (VITEK) Sensitive Citrobacter youngae PIPRACIL/TAZO HOLLY (VITEK) Sensitive Citrobacter youngae TRIMETH-SULFAMETH. HOLLY (VITEK) Sensitive Citrobacter youngae TETRACYCLINE HOLLY (VITEK) Sensitive Cal Dupree MD MICROBIOLOGY - GENERAL ORDERA BLES Final Result [facility] [address] [place] [address], [place] [phone] [facility] [place] [address], * (ABNORMAL) URINALYSIS WI REFLEX TO CULTURE (12/21/2021 9:15 PM CDT) COLOR (U) YELLOW 12/21/2021 9:45 PM CDT [facility] TRANSPARENCY CLEAR 12/21/2021 9:45 PM CDT [facility] SPECIFIC GRAVITY (U) 1.015 1.000 - 1.025 12/21/2021 9:45 PM CDT [facility] U PH 6.5 5.0 - 8.0 12/21/2021 9:45 PM CDT [facility] LEUKOCYTES (U) 1+(A) NEGATIVE 12/21/2021 9:45 PM CDT [facility] NITRITES NEGATIVE NEGATIVE 12/21/2021 9:45 PM CDT [facility] PROTEIN (U) 2+(A) NEGATIVE 12/21/2021 9:45 PM CDT [facility] URINE GLUCOSE NEGATIVE NEGATIVE 12/21/2021 9:45 PM CDT [facility] KETONES MG/DL (U) NEGATIVE NEGATIVE 12/21/2021 9:45 PM CDT [facility] UROBILINOGEN 0.2 <1.0 EU/DL 12/21/2021 9:45 PM CDT [facility] BILIRUBIN (U) NEGATIVE NEGATIVE 12/21/2021 9:45 PM CDT [facility] BLOOD (U) TRACE(A) NEGATIVE 12/21/2021 9:45 PM CDT [facility] WBC/HPF 20-50(A) 0 - 5 /HPF 12/21/2021 9:45 PM CDT [facility] RBC/HPF 5-10(A) 0 - 5 /HPF 12/21/2021 9:45 PM CDT [facility] EPI/LPF FEW /LPF 12/21/2021 9:45 PM CDT [facility] BACTERIA (U) 1+ /HPF 12/21/2021 9:45 PM CDT [facility] MUCUS PRESENT 12/21/2021 9:45 PM CDT [facility] CULTURE & SENSITIVITY INDICATED? SPECIMEN SETUP FOR CULTURE 12/21/2021 9:45 PM CDT [facility] URINE SPECIMEN OBTAINED BY CLEAN CATCH PROCEDURE / Unknown 12/21/2021 9:15 PM CDT us Cal Dupree MD URINE ORDERABLES Final Result [facility] [address] [place] [address], * (ABNORMAL) COMPREHENSIVE METABOLIC PANEL (12/21/2021 6:45 PM CDT) SODIUM S/P/B 144 136 - 145 MMOL/L 12/21/2021 7:20 PM CDT [facility] POTASSIUM S/P/B 4.2 3.5 - 5.1 MMOL/L 12/21/2021 7:20 PM CDT [facility] CHLORIDE S/P/B 108(H) 98 - 107 MMOL/L 12/21/2021 7:20 PM CDT [facility] CO2 25.5 21.0 - 32.0 MMOL/L 12/21/2021 7:20 PM CDT [facility] GLUCOSE 119(H) 70 - 99 MG/DL 12/21/2021 7:20 PM CDT [facility] Comment: FASTING GLUCOSE 100 TO 125 MG/DL IS CONSISTENT WITH IMPAIRED FASTING GLUCOSE. FASTING GLUCOSE >125 MG/DL IS CONSISTENT WITH DIABETES. RANDOM GLUCOSE >200 MG/DL WITH HYPERGLYCEMIC SYMPTOMS IS CONSISTENT WITH DIABETES. PER ADA GUIDELINES BUN 48(H) 6 - 24 MG/DL 12/21/2021 7:20 PM CDT [facility] CREATININE S/P/B 3.47(H) 0.55 - 1.02 MG/DL 12/21/2021 7:20 PM CDT [facility] CALCIUM S/P/B 9.2 8.4 - 10.5 MG/DL 12/21/2021 7:20 PM CDT [facility] BILIRUBIN TOTAL S/P/B 0.4 0.2 - 1.0 MG/DL 12/21/2021 7:20 PM CDT [facility] Comment: THIS ASSAY IS NOT RECOMMENDED FOR PATIENTS UNDERGOING TREATMENT WITH ELTROMBOPAG DUE TO THE POTENTIAL FOR FALSELY ELEVATED RESULTS. ALKALINE PHOSPHATASE S/P/B 112 55 - 142 U/L 12/21/2021 7:20 PM CDT [facility] AST 13(L) 15 - 37 U/L 12/21/2021 7:20 PM CDT [facility] ALT 17 14 - 59 U/L 12/21/2021 7:20 PM CDT [facility] TOTAL PROTEIN S/P/B 7.2 6.4 - 8.2 G/DL 12/21/2021 7:20 PM CDT [facility] ALBUMIN S/P/B 3.3(L) 3.4 - 5.0 G/DL 12/21/2021 7:20 PM CDT [facility] ANION GAP 10.5 5.0 - 15.0 MMOL/L 12/21/2021 7:20 PM CDT [facility] OSMOLALITY (CALC) 312 MOSM/KG 022 7:20 PM CDT [facility] Comment:REFERENCE RANGE NOT ESTABLISHED GFR ESTIMATE 14(L) >89 ML/MIN/1. 73 M2 12/21/2021 7:20 PM CDT [facility] GFR NOTES GFR REFERENCE S: 12/21/2021 7:20 PM CDT [facility] Comment: THE ESTIMATED GFR IS [...] ml/min/1.73 m2 G5,KIDNEY FAILURE: <15 ml/min/1.73 m2 12/21/2021 6:45 PM CDT Cal Dupree MD LABORATORY Final Result [facility] [address] [place] [address], * (ABNORMAL) CBC W/DIFF AUTOMATED (12/21/2021 6:45 PM CDT) WBC 11.2(H) 4.0 - 10.8 x10'3/uL 12/21/2021 6:56 PM CDT [facility] RBC 4.13 4.10 - 5.40 x10'6/uL 12/21/2021 6:56 PM CDT [facility] HGB 12.7 12.0 - 16.0 G/DL 12/21/2021 6:56 PM CDT [facility] HCT 39.4 36.0 - 47.0 % 12/21/2021 6:56 PM CDT [facility] MCV 95.4 78.0 - 100.0 FL 12/21/2021 6:56 PM CDT [facility] MCH 30.8 27.0 - 31.0 PG 12/21/2021 6:56 PM CDT [facility] MCHC 32.2(L) 33.0 - 36.0 G/DL 12/21/2021 6:56 PM CDT [facility] RDW 13.4 11.5 - 14.5 % 12/21/2021 6:56 PM CDT [facility] PLT 297 150 - 350 x10'3/uL 12/21/2021 6:56 PM CDT [facility] MPV 10.3 7.4 - 10.4 FL 12/21/2021 6:56 PM CDT [facility] DIFFERENTIAL COMMENT NORMAL REFERENCE RANGE NOT ESTABLISHED FOR THE PROPORTIONAL LEUKOCYTE DIFFERENTIAL. 12/21/2021 6:56 PM CDT [facility] SEG NEUTROPHILS 73.7 % 6:56 PM CDT [facility] LYMPHOCYTES 14.4 % 12/21/2021 6:56 PM CDT [facility] MONOCYTES 8.7 % 12/21/2021 6:56 PM CDT [facility] EOSINOPHILS 2.1 % 12/21/2021 6:56 PM CDT [facility] BASOPHILS 0.7 % 12/21/2021 6:56 PM CDT [facility] IMMATURE GRANS % 0.4 % 12/22/19 6:56 PM CDT [facility] NRBC 0.0 % 12/21/2021 6:56 PM CDT [facility] ABS. NEUTROPHILS 8.28 1.60 - 8.30 x10'3/uL 12/21/2021 6:56 PM CDT [facility] ABS. LYMPHOCYTES 1.62 0.80 - 4.70 x10'3/uL 12/21/2021 6:56 PM CDT [facility] ABS. MONOCYTES 0.98 0.00 - 1.50 x10'3/uL 12/21/2021 6:56 PM CDT [facility] ABS. EOSINOPHILS 0.24 0.00 - 0.40 x10'3/uL 12/21/2021 6:56 PM CDT [facility] ABS. BASOPHILS 0.08 0.00 - 0.20 x10'3/uL 12/21/2021 6:56 PM CDT [facility] ABS. IMMATURE GRANULOCYTES 0.04(H) 0.00 - 0.03 x10'3/uL 12/21/2021 6:56 PM CDT [facility] ABS. NUCLEATED RBC'S 0.00 0.00 x10'3/uL 12/21/2021 6:56 PM CDT [facility] 12/21/2021 6:45 PM CDT Cal Dupree MD LABORATORY Final Result [facility] [address] [place] [address], documented in this encounter Visit Diagnoses Diagnosis MOIRA (acute kidney injury) ([facility])- Primary Acute kidney failure, unspecified MOIRA (acute kidney injury) ([facility]) Acute kidney failure, unspecified UTI (urinary tract infection) Urinary tract infection, site not specified documented in this encounter Admitting Diagnoses Diagnosis MOIRA (acute kidney injury) ([facility]) Acute kidney failure, unspecified documented in this encounter Administered Medications Inactive Administered Medications - up to 3 most recent administrations Medication Order MAR Action Action Date Dose Rate Site acetaminophen (TYLENOL) tablet 650 mg 650 mg, Oral, Every 4 hours PRN, Mild pain (Scale 1 - 3), Starting on Joan 12/22/21 at 0915, Until Joan 12/22/21 at 2033, Maximum dose of acetaminophen is 4000 mg from all sources in 24 hours. Given 12/22/2021 9:29 AM CDT 650 mg amLODIPine (NORVASC) tablet 5 mg 5 mg, Oral, Daily, First dose on Joan 12/22/21 at 0900, Until Discontinued Given 12/22/2021 9:29 AM CDT 5 mg aspirin EC (ECOTRIN) tablet 81 mg 81 mg, Oral, Daily, First dose on Joan 12/22/21 at 0900, Until Discontinued, Do not break, chew, or crush. Given 12/22/2021 9:28 AM CDT 81 mg cefTRIAXone (ROCEPHIN) 1 g in sodium chloride 0.9 % 50 mL IVPB 1 g, Intravenous, at 100 mL/hr, Once, 1 dose, On Sun12/21/21 at 2200 New Bag 12/21/2021 9:54 PM CDT 1 g 100 mL/hr enoxaparin (LOVENOX) 30 MG/0.3ML syringe 30 mg 30 mg, Subcutaneous, Every 24 hours, First dose on Joan 12/22/21 at 0845, Until Discontinued, Administer by deep SubQ injection alternating between the left or right anterolateral and left or right posterolateral abdominal wall. Given 12/22/2021 9:27 AM CDT 30 mg Left Upper Abdomen gabapentin (NEURONTIN) capsule 600 mg 600 mg, Oral, 3 times daily, First dose on Joan 12/22/21 at 0900, Until Discontinued Given 12/22/2021 5:33 PM CDT 600 mg Given 12/22/2021 9:28 AM CDT 600 mg metoprolol succinate ER (TOPROL-XL) 24 hr tablet 50 mg 50 mg, Oral, Daily, First dose on Joan 12/22/21 at 0900, Until Discontinued, May be split in half along the tablet score line; do not chew or crush. Given 12/22/2021 9:28 AM CDT 50 mg sodium chloride 0.9% bolus infusion 1,000 mL 1,000 mL, Intravenous, Administer over 60 Minutes, Once, 1 dose, On Sun12/21/21 at 1845 New Bag 12/21/2021 7:15 PM CDT 1,000 mLs sodium chloride 0.9% bolus infusion 1,000 mL 1,000 mL, Intravenous, Administer over 60 Minutes, Once, 1 dose, On Sun12/21/21 at 2045 New Bag 12/21/2021 8:49 PM CDT 1,000 mLs sodium chloride 0.9% infusion at 125 mL/hr, Intravenous, Continuous, Starting on Sun12/21/21 at 2245, Until Sun12/22/21 at 1044 New Bag 12/22/2021 6:29 AM CDT 125 mL/hr New Bag 12/21/2021 10:54 PM CDT 125 mL/hr vitamin D3 (cholecalciferol) tablet 5,000 Units 5,000 Units, Oral, Daily, First dose on Sun12/22/21 at 0900, Until Discontinued, 1000 units = 25 mcg Given 12/22/2021 9:28 AM CDT 5,000 Units documented in this encounter Active and Recently Administered Medications Times are shown in CDT. Scheduled Medication Order 12/20/2021 12/21/2021 12/22/2021 amLODIPine (NORVASC) tablet 5 mg 5 mg, Oral, Daily, First dose on Sun12/22/21 at 0900, Until Discontinued 09 (Given - Provid er: Sophy Fairchild RN) aspirin EC (ECOTRIN) tablet 81 mg 81 mg, Oral, Daily, First dose on Sun12/22/21 at 0900, Until Discontinued, Do not break, chew, or crush. 09 (Given - Provid er: Sophy Fairchild RN) cefTRIAXone (ROCEPHIN) 1 g in sodium chloride 0.9 % 50 mL IVPB (COMPLETED) 1 g, Intravenous, at 100 mL/hr, Once, 1 dose, On Sun12/21/21 at 2200 2154 (New Bag - Provider: Isabel Horton RN)2219 (Infusion Stop Time - Provider: Isabel Horton RN) cefTRIAXone (ROCEPHIN) 1 g in sodium chloride 0.9 % 50 mL IVPB 1 g, Intravenous, at 100 mL/hr, Every 24 hours, First dose on Sun12/22/21 at 1700, Until Discontinued 1732 (Not Given - Provider: Sophy Fairchild RN - Reason: Other - Comment: loss of IV; pt discharged) enoxaparin (LOVENOX) 30 MG/0.3ML syringe 30 mg(Linked Group 1) 30 mg, Subcutaneous, Every 24 hours, First dose on Sun12/22/21 at 0845, Until Discontinued, Administer by deep SubQ injection alternating between the left or right anterolateral and left or right posterolateral abdominal wall. 926 (Given - Provid er: Sophy Fairchild RN) gabapentin (NEURONTIN) capsule 600 mg 600 mg, Oral, 3 times daily, First dose on Sun12/22/21 at 0900, Until Discontinued 927 (Given - Provid er: Sophy Fairchild RN)173 (Given - Provider: Sophy Fairchild RN) metoprolol succinate ER (TOPROL-XL) 24 hr tablet 50 mg 50 mg, Oral, Daily, First dose on Sun12/22/21 at 0900, Until Discontinued, May be split in half along the tablet score line; do not chew or crush. 927 (Given - Provid er: Sophy Fairchild RN) sodium chloride 0.9% bolus infusion 1,000 mL (COMPLETED) 1,000 mL, Intravenous, Administer over 60 Minutes, Once, 1 dose, On Sun12/21/21 at 1845 1915 (New Bag - Provider: Isabel Horton RN)2044 (Infusion Stop Time - Provider: Isabel Horton RN) sodium chloride 0.9% bolus infusion 1,000 mL (COMPLETED) 1,000 mL, Intravenous, Administer over 60 Minutes, Once, 1 dose, On Sun12/21/21 at 2045 2049 (New Bag - Provider: Isabel Horton RN)2219 (Infusion Stop Time - Provider: Isabel Horton RN) vitamin D3 (cholecalciferol) tablet 5,000 Units 5,000 Units, Oral, Daily, First dose on Sun12/22/21 at 0900, Until Discontinued, 1000 units = 25 mcg 927 (Given - Provid er: Sophy Fairchild RN) Continuous Medication Order 12/20/2021 12/21/2021 12/22/2021 sodium chloride 0.9% infusion at 125 mL/hr, Intravenous, Continuous, Starting on Sun12/21/21 at 2245, Until Sun12/22/21 at 1044 2254 (New Bag - Provider: Sepideh Bee RN-) 06 (New Bag - Provider: SERVANDO Wood) PRN Medication Order 12/20/2021 12/21/2021 12/22/2021 acetaminophen (TYLENOL) tablet 650 mg 650 mg, Oral, Every 4 hours PRN, Mild pain (Scale 1 - 3), Starting on Joan 12/22/21 at 0915, Until Joan 12/22/21 at 2032, Maximum dose of acetaminophen is 4000 mg from all sources in 24 hours. 09 (Given - Provid er: Sophy Fairchild RN) albuterol (PROVENTIL) (2.5 MG/3ML) 0.083% nebulizer solution 5 mg 5 mg, Nebulization, Every 6 hours PRN, Wheezing, Starting on Sun12/21/21 at 2223, Until Sun12/22/21 at 2032 Linked Groups Order Group 1: enoxaparin (LOVENOX) 30 MG/0.3ML syringe 30 mgJump to med 30 mg, Subcutaneous, Every 24 hours, First dose on Sun12/22/21 at 0845, Until Discontinued, Administer by deep SubQ injection alternating between the left or right anterolateral and left or right posterolateral abdominal wall. And Moderate Risk for VTE (COMPLETED) documented in this encounter Care Teams Supervisor Maintenance And Custodians Relationship Specialty Start Date End Date Jasson Valdivia MD [address] [place] [phone] PCP - General FAMILY PRACTICE 11/03/18 Huber Milligan MD [address] [place] [phone] Consulting Physician Vascular Neurology 04/30/19 Norm Hopkins MD [address] [place] [id number] Consulting Physician CLINICAL CARDIAC ELECTROPHYSIOLOGY 04/30/19 documented as of this encounter
--- OUTSIDE RECORDS SUMMARY | 2024-03-19 18:39 | XMS_ITS | Encounter Summary ---
Author Organization [facility] Address [address] [place] [address]. [place] [address] [place] [address] Care Team Providers Care Ground Support Equipment Fitter Name Role Phone Jasson Cueva MD Primary Care Provider Huber Milligan MD Unavailable [phone] Norm Hopkins MD Unavailable [phone] Reason for Visit * Reason Onset Date Comments Reschedule 06/09/2020 rescheduled miss ed aappt Encounter Details Date Type Department Care Team (Late st Contact Info) Description 06/09/2020 Telephone [facility] [address] [place] [address] Norm Hopkins MD [address] [place] [address] Reschedule (rescheduled missed aappt) Social History Tobacco Use Types Packs/Day Years Used Date Smoking Tobacco: Former Cigarettes Smokeless Tobacco: Never Alcohol Use Standard Drinks/Week Comments Not Currently 0 (1 standard drink = 0.6 oz pur e alcohol) Comments No Sex and Gender Information Value Date Recorded Sex Assigned at Not on file Legal 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 LICENSING ANALYST Gender Identity Not on file Sexual Orientation Not on file COVID-19 Exposure Response Date Recorded In the last month, have you been in contact with someone who was confirmed or suspected to have Coronavirus / COVID-19? No / Unsure 05/27/2020 11:27 AM LICENSING ANALYST documented as of this encounter Functional Status [...] Author Status No 11/26/2018 12:08 PM CDT Lynda Saba RN Active * Do you have difficulty dressing or bathing? Answer Date of Assessment Author Status No 11/26/2018 12:08 PM CDT Lynda Saba RN Active * Because of a physical, mental, or emotional condition, do you have difficulty doing errands alone such as visiting a doctor's office or shopping? Answer Date of Assessment Author Status No 11/26/2018 12:08 PM CDT Lynda Saba RN Active documented as of this encounter Mental Status * Because of a physical, mental, or emotional condition, do you have serious difficulty concentrating, remembering, or making decisions? Answer Entry Date Author Status No 11/26/2018 12:08 PM CDT Lynda Saba RN Active documented in this encounter Progress Notes * Sabrina Diego - 07/27/2020 12:26 PM CDT LVM for JANELLE/son Zack at [phone] to see if he intended to susie 'reschedule' per [employer]. * Sabrina Diego - 06/09/2020 2:41 PM CDT Offered Zack appt on Sun07/28/20 at 9:15 w/ Dr[facility] Jasmine at [facility]. Appt letter mailed. MyChart education, email added, activation code sent. * Janae Kimble - 06/09/2020 2:24 PM CDT Called the patient regarding missed remote transmissions. I spoke to the patients son Zack who takes care of his mothers appointments. The patient missed an f/u and dvc appts last year with Dr Jasmine. Transferred the Zack to [facility] to schedule the f/u and dvc appts for the patient. documented in this encounter Plan of Treatment Not on file documented as of this encounter Visit Diagnoses Not on filedocumented in this encounter Care Teams Ground Support Equipment Fitter Relationship Specialty Start Date End Date Jasson Cueva MD [address] [place] [phone] PCP - General FAMILY PRACTICE 11/03/18 Huber Milligan MD [address] [place] [phone] Consulting Physician Vascular Neurology 04/30/19 Norm Hopkins MD [address] [place] [address] Consulting Physician CLINICAL CARDIAC ELECTROPHYSIOLOGY 04/30/19 documented as of this encounter
--- OUTSIDE RECORDS SUMMARY | 2024-03-19 18:39 | XMS_ITS | Encounter Summary ---
Author Organization [facility] Address [address] [place] [address]. [place], [place] [address] [place] [address] Care Team Providers Care Automation Controls Engineer Name Role Phone Jasson Cueva MD Primary Care Provider [phone] Huber Milligan MD Unavailable [phone] Norm Hopkins MD Unavailable [phone] Encounter Details Date Type Department Care Team (Latest Contact Info) Description 10/17/2020 Travel Social History Tobacco Use Types Packs/Day Years Used Date Smoking Tobacco: Former Cigarettes Smokeless Tobacco: Never Alcohol Use Standard Drinks/Week Comments Not Currently 0 (1 standard drink = 0.6 oz pur e alcohol) Comments No Sex and Gender Information Value Date Recorded Sex Assigned at Not on file Legal 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 SPANISH MOSS PICKER Gender Identity Not on file Sexual Orientation Not on file COVID-19 Exposure Response Date Recorded In the last month, have you been in contact with someone who was confirmed or suspected to have Coronavirus / COVID-19? No / Unsure 10/17/2020 11:43 PM CDT documented as of this encounter [...] on filedocumented in this encounter Care Teams Automation Controls Engineer Relationship Specialty Start Date End Date Jasson Cueva MD [address] [place] [phone] PCP - General FAMILY PRACTICE 11/03/18 Huber Milligan MD [address] [place] [phone] Consulting Physician Vascular Neurology 04/30/19 Norm Hopkins MD [address] [place] [address] Consulting Physician CLINICAL CARDIAC ELECTROPHYSIOLOGY 04/30/19 documented as of this encounter
--- OUTSIDE RECORDS SUMMARY | 2024-03-19 18:39 | XMS_ITS | Encounter Summary ---
Author Organization [facility] Address [address] [place] [address]. [place], [place] [address] [place] [address] Care Team Providers Care Bag Machine Adjuster Name Role Phone Jasson Cueva MD Primary Care Provider [phone] Huber Milligan MD Unavailable [phone] Norm Hopkins MD Unavailable [phone] Encounter Details Date Type Department Care Team (Latest Contact Info) Description 05/27/2020 Travel Social History Tobacco Use Types Packs/Day Years Used Date Smoking Tobacco: Former Cigarettes Smokeless Tobacco: Never Alcohol Use Standard Drinks/Week Comments Not Currently 0 (1 standard drink = 0.6 oz pur e alcohol) Comments No Sex and Gender Information Value Date Recorded Sex Assigned at Not on file Legal 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 DUTY MANAGER Gender Identity Not on file Sexual Orientation Not on file COVID-19 Exposure Response Date Recorded In the last month, have you been in contact with someone who was confirmed or suspected to have Coronavirus / COVID-19? No / Unsure 05/27/2020 11:27 AM DUTY MANAGER documented as of this encounter Functional [...] on filedocumented in this encounter Care Teams Bag Machine Adjuster Relationship Specialty Start Date End Date Jasson Cueva MD [address] [place] [phone] PCP - General FAMILY PRACTICE 11/03/18 Huber Milligan MD [address] [place] [phone] Consulting Physician Vascular Neurology 04/30/19 Norm Hopkins MD [address] [place] [address] Consulting Physician CLINICAL CARDIAC ELECTROPHYSIOLOGY 04/30/19 documented as of this encounter
--- OUTSIDE RECORDS SUMMARY | 2024-03-19 18:39 | XMS_ITS | Encounter Summary ---
Author Organization [facility] Address [address] [place] [address]. [place], [place] [address] [place] [address] Care Team Providers Care Security Risk Analyst Name Role Phone Jasson Cueva MD Primary Care Provider [phone] Huber Milligan MD Unavailable [phone] Norm Hopkins MD Unavailable [phone] Encounter Details Date Type Department Care Team (Latest Contact Info) Description 01/24/2021 Travel Social History Tobacco Use Types Packs/Day Years Used Date Smoking Tobacco: Former Cigarettes Smokeless Tobacco: Never Alcohol Use Standard Drinks/Week Comments Not Currently 0 (1 standard drink = 0.6 oz pur e alcohol) Comments No Sex and Gender Information Value Date Recorded Sex Assigned at Not on file Legal 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 DATA PROCESSING OPERATOR Gender Identity Not on file Sexual Orientation Not on file COVID-19 Exposure Response Date Recorded In the last month, have you been in contact with someone who was confirmed or suspected to have Coronavirus / COVID-19? No / Unsure 01/24/2021 12:38 PM DATA PROCESSING OPERATOR documented as of this encounter Functional Status [...] 3:33 PM Ben Beckwith RN Active * Do you have difficulty [...] on filedocumented in this encounter Care Teams Security Risk Analyst Relationship Specialty Start Date End Date Jasson Cueva MD [address] [place] [phone] PCP - General FAMILY PRACTICE 11/03/18 Huber Milligan MD [address] [place] [phone] Consulting Physician Vascular Neurology 04/30/19 Norm Hopkins MD [address] [place] [address] Consulting Physician CLINICAL CARDIAC ELECTROPHYSIOLOGY 04/30/19 documented as of this encounter
--- OUTSIDE RECORDS SUMMARY | 2024-03-19 18:39 | XMS_ITS | Encounter Summary ---
Author Organization [facility] Address [address] [place] [address]. [place], [place] [address] [place] [address] Care Team Providers Care Childrens Club Attendant Name Role Phone Jasson Cueva MD Primary Care Provider [phone] Huber Milligan MD Unavailable [phone] Norm Hopkins MD Unavailable [phone] Encounter Details Date Type Department Care Team (Latest Contact Info) Description 01/12/2021 Travel Social History Tobacco Use Types Packs/Day Years Used Date Smoking Tobacco: Former Cigarettes Smokeless Tobacco: Never Alcohol Use Standard Drinks/Week Comments Not Currently 0 (1 standard drink = 0.6 oz pur e alcohol) Comments No Sex and Gender Information Value Date Recorded Sex Assigned at Not on file Legal 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 COAL CONVEYOR OPERATOR Gender Identity Not on file Sexual [...] serious difficulty walking or climbing stairs? No 01/12/2021 3:33 PM CDT Ben Ayoub RN Active * Question Answer Date of Assessment Author Status Do you have difficulty dressing or bathing? No 01/12/2021 3:33 PM CDT Ben Ayoub RN Active Because of a physical, mental, or emotional condition, do you have difficulty doing errands alone such as visiting a doctor's office or shopping? No 01/12/2021 3:33 PM CDT Ben Ayoub RN Active * RETIRED Are you deaf [...] difficulty concentrating, remembering, or making decisions? No 01/12/2021 3:33 PM CDT Ben Ayoub [...] documented as of this encounter Care Teams Childrens Club Attendant Relationship Specialty Start Date End Date Jasson Cueva MD [address] [place] [phone] PCP - General FAMILY PRACTICE 11/03/18 Huber Milligan MD [address] [place] [phone] Consulting Physician Vascular Neurology 04/30/19 Norm Hopkins MD [address] [place] [address] Consulting Physician CLINICAL CARDIAC ELECTROPHYSIOLOGY 04/30/19 documented as of this encounter
--- OUTSIDE RECORDS SUMMARY | 2024-03-19 18:39 | XMS_ITS | Encounter Summary ---
Author Organization [facility] Address [address] [place] [address]. [place], [place] [address] [place] [address] Care Team Providers Care Cue Selector Name Role Phone Jasson Cueva MD Primary Care Provider Huber Milligan MD Unavailable [phone] Norm Hopkins MD Unavailable [phone] Encounter Details Date Type Department Care Team (Late st Contact Info) Description 11/07/2021 3:13 PM CDT - 11/07/2021 11:59 PM CDT Hospital Encounter [facility] [address] [facility] [place] [address] Leydi Sherman MD [address] [place] [phone] Discharge Disposition: Home or Self Care (Routine Discharge) Social History Tobacco Use Types Packs/Day Years Used Date Smoking Tobacco: Former Cigarettes Smokeless Tobacco: Never Alcohol Use Standard Drinks/Week Comments Not Currently 0 (1 standard drink = 0.6 oz pur e alcohol) Comments No Sex and Gender Information Value Date Recorded Sex Assigned at Not on file Legal 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 INTELLIGENCE SUPPORT OFFICER Gender Identity Not on file Sexual Orientation [...] Assessment Author Status No 04/10/2021 6:08 PM INTELLIGENCE SUPPORT OFFICER Activ e * RETIRED Are you blind or do you have serious difficulty seeing, even when wearing glasses? Answer Date of Assessment Author Status No 04/10/2021 6:08 PM INTELLIGENCE SUPPORT OFFICER Activ e * Do you have serious [...] Procedure Name Priority Date/Time Associated Diagnosis Comments XR CHEST PA+LAT Routine 11/07/2021 3:35 PM CDT Peripheral edema documented in this encounter Results * XR CHEST PA+LAT (11/07/2021 3:35 PM CDT) Anatomical Region Laterality Modality Chest Radiographic Sharon ging 11/07/2021 3:50 PM CDT Impressions 11/07/2021 3:51 PM CDT IMPRESSION: No significant change. No acute disease. Ordered By: LEYDI SHERMAN Interpreted By: Jacky Saul MD, 11/07/2021 3:50 PM Narrative 11/07/2021 3:51 PM CDT Examination: Two-view chest Exam time: 1527 hours. Clinical history: Peripheral edema. Intermittent dyspnea. Comparison: ??04/10/2021. Technique: PA and lateral views Findings: The heart remains within normal limits for size. Pulmonary vascularity is within normal limits. The lungs and pleural spaces appear free of any active process. The bony thorax is stable. Right shoulder arthroplasty again evident. Implanted loop recorder remains in place. Procedure Note Jacky Saul MD - 11/07/2021 Examination: Two-view chest Exam time: 1527 hours. Clinical history: Peripheral edema. Intermittent dyspnea. Comparison: 04/10/2021. Technique: PA and lateral views Findings: The heart remains within normal limits for size. Pulmonaryvascularity is within normal limits. The lungs and pleural spaces appearfree of any active process. The bony thorax is stable. Right shoulderarthroplasty again evident. Implanted loop recorder remains in place. IMPRESSION: No significant change. No acute disease. Ordered By: LEYDI SHERMAN Interpreted By: Jacky Saul MD, 11/07/2021 3:50 PM us Leydi Sherman MD GENERAL IMAGING Final Resu lt documented in this encounter Visit Diagnoses Diagnosis Peripheral edema Edema documented in this encounter Care Teams Cue Selector Relationship Specialty Start Date End Date Jasson Cueva MD [address] [place] [phone] PCP - General FAMILY PRACTICE 11/03/18 Huber Milligan MD [address] [place] [phone] Consulting Physician Vascular Neurology 04/30/19 Norm Hopkins MD [address] [place] [address] Consulting Physician CLINICAL CARDIAC ELECTROPHYSIOLOGY 04/30/19 documented as of this encounter
--- OUTSIDE RECORDS SUMMARY | 2024-03-19 18:39 | XMS_ITS | Encounter Summary ---
Author Organization [facility] Address [address] [place] [address]. [place], [place] [address] [place] [address] Care Team Providers Care User Support Analyst Supervisor Name Role Phone Jasson Cueva MD Primary Care Provider Huber Milligan MD Unavailable [phone] Norm Hopkins MD Unavailable [phone] Encounter Details Date Type Department Care Team (Late st Contact Info) Description 08/16/2021 Orders Only [facility] [address] [place] [address] Jasson Cueva MD [address] [place] [phone] Social History Tobacco Use Types Packs/Day Years Used Date Smoking Tobacco: Former Cigarettes Smokeless Tobacco: Never Alcohol Use Standard Drinks/Week Comments Not Currently 0 (1 standard drink = 0.6 oz pur e alcohol) Comments No Sex and Gender Information Value Date Recorded Sex Assigned at Not on file Legal 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 WINDOWS ADMINISTRATOR Gender Identity Not on file Sexual Orientation Not on file documented as of this encounter Functional Status * RETIRED Are you deaf or do you have serious difficulty hearing Answer Date of Assessment Author Status No 04/10/2021 6:08 PM WINDOWS ADMINISTRATOR Activ e * RETIRED Are you blind or do you have serious difficulty seeing, even when wearing glasses? Answer Date of Assessment Author Status No 04/10/2021 6:08 PM WINDOWS ADMINISTRATOR Activ e * Do you have serious [...] 6:08 PM Olivia Watson RN Active documented as of this encounter [...] Lopez RN documented as of this encounter Results * (ABNORMAL) MISCELLANEOUS LAB TEST (08/16/2021 9:12 AM CDT) [facility] TEST NAME: [id number] FRUCTOSAMINE 08/16/2021 11:06 AM CDT [facility] SPECIMEN TYPE SERUM 08/16/2021 11:06 AM CDT [facility] TEST RESULT: Flexitest 1(A) 08/19/19 22 4:22 PM CDT CLARED JUHIROSALIO AHMADI Comment: Flexitest 1 Fructosamine ?202 L ? umol/L ?140-823 Test Performed by [employer] [facility], [address] [place] [address] Cesar Brandon M.D., Ph.D., Director of Laboratories , [place] [id number] 08/16/2021 9:12 AM CDT us Jasson Cueva MD LABORATORY Final Resul t [facility] [address] [place] [address], [place] [phone] [facility] [address] [place] [address], [place] [phone] * (ABNORMAL) COMPREHENSIVE METABOLIC PANEL (08/16/2021 9:12 AM CDT) SODIUM S/P/B 141 136 - 145 MMOL/L 08/16/2021 11:04 AM CDT [facility] POTASSIUM S/P/B 4.0 3.5 - 5.1 MMOL/L 08/16/2021 11:04 AM CDT [facility] CHLORIDE S/P/B 107 98 - 107 MMOL/L 08/16/2021 11:04 AM CDT [facility] CO2 22.4 21.0 - 32.0 MMOL/L 08/16/2021 11:04 AM CDT [facility] GLUCOSE 77 70 - 99 MG/DL 08/16/2021 11:04 AM CDT [facility] Comment: FASTING GLUCOSE 100 TO 125 MG/DL IS CONSISTENT WITH IMPAIRED FASTING GLUCOSE. FASTING GLUCOSE >125 MG/DL IS CONSISTENT WITH DIABETES. RANDOM GLUCOSE >200 MG/DL WITH HYPERGLYCEMIC SYMPTOMS IS CONSISTENT WITH DIABETES. PER ADA GUIDELINES BUN 43(H) 6 - 24 MG/DL 08/16/2021 11:04 AM CDT [facility] CREATININE S/P/B 2.70(H) 0.55 - 1.02 MG/DL 08/16/2021 11:04 AM CDT [facility] CALCIUM S/P/B 8.8 8.4 - 10.5 MG/DL 08/16/2021 11:04 AM CDT [facility] BILIRUBIN TOTAL S/P/B 0.3 0.2 - 1.0 MG/DL 08/16/2021 11:04 AM CDT [facility] Comment: THIS ASSAY IS NOT RECOMMENDED FOR PATIENTS UNDERGOING TREATMENT WITH ELTROMBOPAG DUE TO THE POTENTIAL FOR FALSELY ELEVATED RESULTS. ALKALINE PHOSPHATASE S/P/B 83 55 - 142 U/L 08/16/2021 11:04 AM CDT [facility] AST 14(L) 15 - 37 U/L 08/16/2021 11:04 AM T [facility] ALT 14 14 - 59 U/L 08/16/2021 11:04 AM T [facility] TOTAL PROTEIN S/P/B 6.9 6.4 - 8.2 G/DL 08/16/2021 11:04 AM T [facility] ALBUMIN S/P/B 3.2(L) 3.4 - 5.0 G/DL 08/16/2021 11:04 AM T [facility] ANION GAP 11.6 5.0 - 15.0 MMOL/L 08/16/2021 11:04 AM T [facility] OSMOLALITY (CALC) 302 MOSM/KG 022 11:04 AM T [facility] Comment:REFERENCE RANGE NOT ESTABLISHED GFR ESTIMATE 19(L) >89 ML/MIN/1. 73 M2 08/16/2021 11:04 AM [facility] GFR NOTES GFR REFERENCE S: 08/16/2021 11:04 AM [facility] Comment: THE ESTIMATED GFR IS [...] Jasson Cueva MD LABORATORY Final Resul t [facility] [address] [place] [address], * (ABNORMAL) CBC W/DIFF AUTOMATED (08/16/2021 9:12 AM CDT) WBC 8.1 4.0 - 10.8 x10'3/uL 08/16/2021 10:46 AM CDT [facility] RBC 4.75 4.10 - 5.40 x10'6/uL 08/16/2021 10:46 AM CDT [facility] HGB 14.3 12.0 - 16.0 G/DL 08/16/2021 10:46 AM CDT [facility] HCT 46.0 36.0 - 47.0 % 08/16/2021 10:46 AM CDT [facility] MCV 96.8 78.0 - 100.0 FL 08/16/2021 10:46 AM CDT [facility] MCH 30.1 27.0 - 31.0 PG 08/16/2021 10:46 AM CDT [facility] MCHC 31.1(L) 33.0 - 36.0 G/DL 08/16/2021 10:46 AM CDT [facility] RDW 13.8 11.5 - 14.5 % 08/16/2021 10:46 AM CDT [facility] PLT 306 150 - 350 x10'3/uL 08/16/2021 10:46 AM CDT [facility] MPV 11.4(H) 7.4 - 10.4 FL 08/16/2021 10:46 AM CDT [facility] DIFFERENTIAL COMMENT NORMAL REFERENCE RANGE NOT ESTABLISHED FOR THE PROPORTIONAL LEUKOCYTE DIFFERENTIAL. 08/16/2021 10:46 AM CDT [facility] SEG NEUTROPHILS 56.4 % 10:46 AM CDT [facility] LYMPHOCYTES 28.4 % 08/16/2021 10:46 AM CDT [facility] MONOCYTES 10.7 % 08/16/2021 10:46 AM CDT [facility] EOSINOPHILS 3.8 % 08/16/2021 10:46 AM CDT [facility] BASOPHILS 0.6 % 08/16/2021 10:46 AM CDT [facility] IMMATURE GRANS % 0.1 % 08/17/19 10:46 AM CDT [facility] NRBC 0.0 % 08/16/2021 10:46 AM CDT [facility] ABS. NEUTROPHILS 4.57 1.60 - 8.30 x10'3/uL 08/16/2021 10:46 AM CDT [facility] ABS. LYMPHOCYTES 2.31 0.80 - 4.70 x10'3/uL 08/16/2021 10:46 AM CDT [facility] ABS. MONOCYTES 0.87 0.00 - 1.50 x10'3/uL 08/16/2021 10:46 AM CDT [facility] ABS. EOSINOPHILS 0.31 0.00 - 0.40 x10'3/uL 08/16/2021 10:46 AM CDT [facility] ABS. BASOPHILS 0.05 0.00 - 0.20 x10'3/uL 08/16/2021 10:46 AM CDT [facility] ABS. IMMATURE GRANULOCYTES 0.01 0.00 - 0.03 x10'3/uL 08/16/2021 10:46 AM CDT [facility] ABS. NUCLEATED RBC'S 0.00 0.00 x10'3/uL 08/16/2021 10:46 AM CDT [facility] 08/16/2021 9:12 AM CDT us Jasson Cueva MD LABORATORY Final Resul t [facility] [address] [place] [address], documented in this encounter Visit Diagnoses Diagnosis Hypertensive heart and renal disease with (congestive) heart failure ([facility] HHS/HCC)- Primary Heart failure, unspecified ([facility] HHS/HCC) Heart failure, unspecified Encounter for screening for diabetes mellitus Screening for diabetes mellitus Hyperlipidemia Other and unspecified hyperlipidemia Chronic renal disease, stage III ([facility] HHS/HCC) Chronic kidney disease, Stage III (moderate) documented in this encounter Care Teams User Support Analyst Supervisor Relationship Specialty Start Date End Date Jasson Cueva MD [address] [place] [phone] PCP - General FAMILY PRACTICE 11/03/18 Huber Milligan MD [address] [place] [phone] Consulting Physician Vascular Neurology 04/30/19 Norm Hopkins MD [address] [place] [address] Consulting Physician CLINICAL CARDIAC ELECTROPHYSIOLOGY 04/30/19 documented as of this encounter
--- OUTSIDE RECORDS SUMMARY | 2024-03-19 18:39 | XMS_ITS | Encounter Summary ---
Author Organization [facility] Address [address] [place] [address]. [place] [address] [place] [address] Care Team Providers Care Track Repairer Name Role Phone Jasson Cueva MD Primary Care Provider [phone] Huber Milligan MD Unavailable [phone] Norm Hopkins MD Unavailable [phone] Reason for Visit * Reason Onset Date Comments Appointment Request 01/21/2021 hospital f/u 1 month Appointment Request 01/25/2021 hospital f/u 1 month Encounter Details Date Type Department Care Team (Late st Contact Info) Description 01/21[facility]20[facility] [address] [place] [address] Sindy Velazquez, [facility] [address] [place] [address] Appointment Request (hospital f/u 1 month); Appointment Request (hospital f/u 1 month) Social History Tobacco Use Types Packs/Day Years Used Date Smoking Tobacco: Former Cigarettes Smokeless Tobacco: Never Alcohol Use Standard Drinks/Week Comments Not Currently 0 (1 standard drink = 0.6 oz pur e alcohol) Comments No Sex and Gender Information Value Date Recorded Sex Assigned at Not on file Legal 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 [employer] WORKER Gender Identity Not on file Sexual Orientation Not on file COVID-19 Exposure Response Date Recorded In the last month, have you been in contact with someone who was confirmed or suspected to have Coronavirus / COVID-19? No / Unsure 01/24/2021 12:38 PM SHOP WORKER documented as of this encounter Functional Status [...] Status No 01/12/2021 3:33 PM CDT Ben Aoyub RN Active documented as of this encounter Mental Status * Because of a physical, mental, or emotional condition, do you have serious difficulty concentrating, remembering, or making decisions? Answer Entry Date Author Status No 01/12/2021 3:33 PM CDT Ben Ayoub RN Active documented in this encounter Progress Notes * Marianne Vázquez - 01/25/2021 11:12 AM CST REFERRAL/PCP: Jasson Cueva MD REASON FOR APPT: 1 month post hosp f/u INS: Medicare/Medicare Part A and B [facility]PT [facility]: [facility]14[facility]2021 at 3:30 PM TESTING NEEDED/SCHEDULED: no STAFF MSG SENT: no COVID+TEST/EXPOSURE IN LAST 14 DAYS: n/a RECORDS NEEDED: no MYCHART OFFERED: pending LETTER SENT: yes CARE TEAM: notified patient expresses understanding and has no questions WORKER * Marianne Henriquez Gurpreet - 01/21/2021 4:09 PM CDT Called patient to schedule appointment with Sindy Izquierdo on 02/15/2021. Left message to please call back and schedule. documented in this encounter Plan of Treatment Not on file documented as of this encounter Visit Diagnoses Not on filedocumented in this encounter Care Teams Track Repairer Relationship Specialty Start Date End Date Jasson Cueva MD [address] [place] [phone] PCP - General FAMILY PRACTICE 11/03/18 Huber Milligan MD [address] [place] [phone] Consulting Physician Vascular Neurology 04/30/19 Norm Hopkins MD [address] [place] [id number] Consulting Physician CLINICAL CARDIAC ELECTROPHYSIOLOGY 04/30/19 documented as of this encounter
--- OUTSIDE RECORDS SUMMARY | 2024-03-19 18:39 | XMS_ITS | Encounter Summary ---
Author Organization [facility] Address [address] [place] [address]. [place], [place] [id number] [place] [id number] Care Team Providers Care Rim Turning Finisher Name Role Phone Jasson Valdivia MD Primary Care Provider [phone] Huber Milligan MD Unavailable [phone] Norm Hopkins MD Unavailable [phone] Reason for Referral * Imaging (Urgent) - Closed Specialty Diagnoses / Procedures Referred By Contac t Referred To Contact RADIOLOGY Procedures USV ABD PEL OR RETRO DUPLEX COMP US RENAL ABDOMEN DUPLEX COMP Olman Ambriz MD [address] [place] [address] Phone: tel: fax: Referral ID Status Reason Start Date Expiration Date Visits Re quested Visits Authorized [id number] Closed 01/13/2021 02/13/2022 1 1 * Procedure (Routine) - Closed Specialty Diagnoses / Procedures Referred By Contac t Referred To Contact Diagnoses Unstable angina ([facility] HHS/HCC) Ischemic stroke ([facility] HHS/HCC) Procedures Cardiology Stress Test Only, Exercise [facility] [address] [place] [address] Phone: tel: Referral ID Status Reason Start Date Expiration Date Visits Re quested Visits Authorized [id number] Closed 01/13/2021 02/13/2022 1 1 * Imaging (Urgent) - Closed Specialty Diagnoses / Procedures Referred By Contac t Referred To Contact RADIOLOGY Procedures NM PHARM NUC STRESS TEST 1DAY NM PHARM NUC STRESS TEST 1DAY Rochelle Blunt NP Phone: tel: fax: Referral ID Status Reason Start Date Expiration Date Visits Re quested Visits Authorized [id number] Closed 01/12/2021 02/12/2022 1 1 * Procedure (Routine) - Closed Specialty Diagnoses / Procedures Referred By Jaironac t Referred To Contact Procedures Complete PFT (pre/post [place], Lung Vol, Diff Capacity) ([id number], [id number], [id number], [id number]) Columba [facility] Phone: tel: fax: Referral ID Status Reason Start Date Expiration Date Visits Re quested Visits Authorized [id number] Closed 01/12/2021 02/12/2022 1 1 * Imaging (Urgent) - Closed Specialty Diagnoses / Procedures Referred By Jayce t Referred To Contact RADIOLOGY Procedures USE ECHOCARDIOGRAM Rochelle Blunt NP Phone: tel: fax: Referral ID Status Reason Start Date Expiration Date Visits Re quested Visits Authorized [id number] Closed 01/12/2021 02/12/2022 1 1 Reason for Visit * Auth/Cert Specialty Diagnoses / Procedures Referred By Contac t Referred To Contact Diagnoses NEW ONSET CHF Procedures GENERAL Referral ID Status Reason Start Date Expiration Date Visits Re quested Visits Authorized [id number] 1 1 Encounter Details Date Type Department Care Team (Latest Contact Info) Description 01/12/2021 2:47 PM CDT - 01/14/2021 2:42 PM CDT Hospital Encounter [facility] [address] [place] [address] Germán Marquez MD [address] [place] [address] Xavier Gardner MD [address] [place], [place] [id number] Too Owens MD [address] [place], [place] [id number] Discharge Disposition: Home with Home Health Care Social History Tobacco Use Types Packs/Day Years Used Date Smoking Tobacco: Former Cigarettes Smokeless Tobacco: Never Alcohol Use Standard Drinks/Week Comments Not Currently 0 (1 standard drink = 0.6 oz pur e alcohol) Comments No Sex and Gender Information Value Date Recorded Sex Assigned at Not on file 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 No / Unsure 01/12/2021 12:21 PM CDT documented as of this encounter Last Filed Vital Signs Vital Sign Reading Time Taken Comments Blood Pressure 138/76 01/14/2021 9:42 AM CDT Pulse 60 01/14/2021 9:42 AM CDT Temperature 36.8 ??C (98.2 ??F) 01/14/2021 9:42 AM CD T Respiratory Rate 20 01/13/2021 7:20 PM CDT Oxygen Saturation 93% 01/14/2021 9:42 AM CDT Inhaled Oxygen Concentration - - Weight 74.2 kg (163 lb 9.3 oz) 01/14/2021 4:11 A M CDT Height 170.2 cm (5' 7 ) 01/12/2021 3:42 PM CDT Body Mass Index 25.62 01/12/2021 3:42 PM CDT documented in this encounter Functional [...] or making decisions? No 01/12/2021 3:33 PM JULYT Ben Ayoub RN Active * Because of a physical, mental, or emotional condition, do you have serious difficulty concentrating, remembering, or making decisions? Answer Entry Date Author Status No 01/12/2021 3:33 PM CDBen Holder RN Active documented in this encounter Discharge Summaries * Too Owens MD - 01/14/2021 12:56 PM CDT Physician Discharge Summary Patient ID: Alayna Lawrence [id number] 70-year-old 1950 Primary care physician:JASSON VALDIVIA MD Admitting date: 01/12/2021 Discharge Date: 01/14/2021 Admitting Physician: Germán Marquez MD Discharging physician: TOO OWENS MD Consults: cardiology Discharge Diagnoses: Acute CHF Elevated troponin, likely demand ischemia Mild COPD exacerbation CKD stage III History of CVA Discharge Exam: Vitals: 01/14/21 0942 BP: 138/76 Pulse: 60 Resp: Temp: 98.2 ??F (36.8 ??C) SpO2: 93% Discharged Condition: fair Hospital Course: Patient admitted to hospital. Started on breathing treatments, O2 supplementation, IV Lasix. Echocardiogram done shows EF 70% with mild MR. Stress test x-ray shows no significant ischemic changes. Cardiology on board, okay to discharge. Renal duplex on the right shows no significant stenosis. Patient also started on p.o. steroids, recommend to continue 4 more days upon discharge. Advised to follow with PCP, cardiology in 1 week. Recommend checking CBC, BMP in 1 week and follow-up report with PCP. Discussed with case resolution specialist on discharge plan, resuming home health services. I have personally seen and examined patient at time of discharge. Vitals stable and physical exam benign at time of discharge. Discharge medications as per medication reconciliation. Patient advisedto call PCP or go to emergency room if symptoms worsen. Patient completely understands instructionsgiven at time of discharge. Discussed with RN on discharge plan. Thank you for choosing [facility] -PLEASE CALL [phone] EXT [phone] IF ANY QUESTIONS Code Status: Full Code Disposition: Home Patient Instructions: Current Discharge Medication List START taking these medications Details predniSONE 20 MG tablet Take 2 tablets (40 mg total) by mouth daily for 4 days. Qty: 8 tablet, Refills: 0 CONTINUE these medications which have NOT CHANGED Details albuterol sulfate HFA 108 (90 Base) MCG/ACT inhaler amLODIPine 5 MG tablet aspirin EC 81 MG tablet Take 81 mg by mouth daily. furosemide 20 MG tablet GABAPENTIN 600 MG tablet TAKE ONE TABLET BY MOUTH THREE TIMES DAILY. Qty: 90 tablet, Refills: 4 Associated Diagnoses: Neuropathic pain meloxicam 15 MG tablet metoprolol succinate ER 50 MG 24 hr tablet Take 50 mg by mouth daily. Refills: 2 vitamin D3, cholecalciferol, 5000 UNITS capsule Take 1 capsule by mouth daily. traMADol 50 MG tablet Activity: activity as tolerated Diet: cardiac diet Jasson Valdivia MD [address] [facility] [phone] Follow up in 1 week(s) Olman Ambriz MD [address] [facility] [id number] Follow up in 1 week(s) Total discharge time spent: 32 min, more than 50% of time spent in coordination of care and discussing with patient about discharge plan, instructions, medications and follow-ups. Signed: TOO OWENS MD 01/14/2021 12:57 PM documented in this encounter Discharge Instructions * Attachments The following attachments cannot be sent through Care Everywhere. * Heart Failure Discharge Instructions, Adult (Nepalese) * Cardiac Stress Test (Nepalese) * Prednisone, ADULT (Nepalese) documented in this encounter Medications at Time [...] 03/10/2020 2 documented as of this encounter Progress Notes * Tanvi Keane RN - 01/14/2021 11:09 AM CDT [facility] services at d/c.they were notified of d/c today. fax d/c orders to: [phone] Brother will transport at d/c No needs * Lynda Vergara RN - 01/13/2021 10:22 PM CDTSummary: progressing Problem: Reduced risk for falls/injury Goal: Reduced Risk for Falls/Injury Problem: Safety Goal: Patient will be injury [...] policy, and non-skid footwear provided. Outcome: Progressing * JOSE FangP-BC - 01/13/2021 2:58 PM CDT Alayna Lawrence is a 70-year-old female patient admitted with congestive heart failure Subjective Patient states her shortness of breath is improved. She continues to have orthopnea. She continues to have dyspnea on exertion that is much better than yesterday. She denies any chest discomfort. Herpedal edema has resolved. No nausea or vomiting. Active Problems: CHF exacerbation (CMS/HCC) SNOMED CT(R): ACUTE EXACERBATION OF CHRONIC CONGESTIVE HEART FAILURE Unstable angina (CMS/HCC) SNOMED CT(R): PREINFARCTION SYNDROME Past Medical History: Diagnosis Date ??? CKD (chronic kidney disease) ??? COPD (chronic obstructive pulmonary disease) (CMS/HCC) ??? Depression ??? Displaced fracture of proximal end of right humerus 11/06/2018 ??? HLD (hyperlipidemia) ??? Hypertension ??? Ischemic stroke (CMS/HCC) ??? Neuropathy ??? UTI (urinary tract infection) Current Facility-Administered Medications Medication Dose Route Frequency Provider Last Rate Last Admin ??? albuterol sulfate HFA 108 (90 Base) MCG/ACT inhaler 2 puff 2 puff Inhalation Q4H PRN REYNALDO Fang ??? amLODIPine (NORVASC) tablet 5 mg 5 mg Oral Daily REYNALDO Fang ??? aspirin EC (ECOTRIN) tablet 81 mg 81 mg Oral Daily REYNALDO Fang ??? atorvastatin (LIPITOR) tablet 40 mg 40 mg Oral Nightly at bedtime Rochelle Blunt NP ??? enoxaparin (LOVENOX) 30 MG/0.3ML syringe 30 mg 30 mg Subcutaneous Nightly (enoxaparin) Xavier Gardner MD 30 mg at 01/12/21 2214 ??? furosemide (LASIX) injection 40 mg 40 mg Intravenous Daily REYNALDO Fang 40 mg at 01/13/21 0942 ??? gabapentin (NEURONTIN) capsule 600 mg 600 mg Oral TID Xavier Gardner MD ??? ipratropium-albuterol (DUONEB) 0.5-2.5 (3) MG/3ML nebulizer solution 3 mL 3 mL Nebulization Q6HPRN REYNALDO Fang ??? meloxicam (MOBIC) tablet 15 mg 15 mg Oral Daily REYNALDO Fang ??? metoprolol succinate ER (TOPROL-XL) 24 hr tablet 50 mg 50 mg Oral Daily REYNALDO Fang ??? normal saline 0.9 % flush 3-10 mL 3-10 mL Intravenous Q8H Xavier Gardner MD 10 mL at 01/13/21 0942 ??? normal saline 0.9 % flush 3-10 mL 3-10 mL Intravenous PRN Xavier Gardner MD ??? potassium chloride CR (KLOR-CON M) tablet 20 mEq 20 mEq Oral Once Nickie Juma Faria, MAILMASTER ??? predniSONE (DELTASONE) tablet 40 mg 40 mg Oral Daily Too Owens MD 40 mg at 01/13/21 0942 ??? vitamin D3 (cholecalciferol) tablet 5,000 Units 5,000 Units Oral Daily Columba Xavier, [facility]- Review of Systems Constitutional: Negative for chills, fever, malaise/fatigue and weight loss. HENT: Negative for congestion, hearing loss and sore throat. Eyes: Negative for blurred vision and double vision. Respiratory: Positive for cough, shortness of breath and wheezing. Negative for hemoptysis. Cardiovascular: Negative for chest pain, palpitations, orthopnea, claudication, leg swelling and PND. Gastrointestinal: Negative for abdominal pain, blood in stool, constipation, diarrhea, melena, nausea and vomiting. Genitourinary: Negative for dysuria, frequency, hematuria and urgency. Musculoskeletal: Negative for falls. Skin: Negative for rash. Neurological: Negative for dizziness, tingling, weakness and headaches. Endo/Heme/Allergies: Does not bruise/bleed easily. Vitals: 01/13/21 0933 BP: (!) 140/94 Pulse: 64 Resp: Temp: 98.1 ??F (36.7 ??C) SpO2: 95% Physical Exam Constitutional: She is oriented to person, place, and time. She appears well- developed and well-nourished. No distress. HENT: Head: Normocephalic and atraumatic. Eyes: Pupils are equal, round, and reactive to light. Conjunctivae are normal. Neck: No JVD present. Cardiovascular: Normal rate, regular rhythm, normal heart sounds and intact distal pulses. Pulmonary/Chest: Effort normal. No stridor. She has wheezes (mild inspiratory and expiratory throughout). Abdominal: Soft. Bowel sounds are normal. She exhibits no distension and no mass. There is no abdominal tenderness. There is no rebound and no guarding. Musculoskeletal: General: No edema. Normal range of motion. Cervical back: Normal range of motion and neck supple. Neurological: She is alert and oriented to person, place, and time. No cranial nerve deficit. Skin: Skin is warm and dry. She is not diaphoretic. Psychiatric: She has a normal mood and affect. Her behavior is normal. Recent Labs Lab 01/13/21 0331 WBC 8.8 RBC 4.55 HGB 13.9 HCT 42.2 MCV 92.7 MCH 30.5 MCHC 32.9* PLT 264 RDW 13.4 MPV 10.6* NEUC 5.88 LYMC 1.72 MONOC 0.84 EOSC 0.23 BASOC 0.06 Recent Labs Lab 01/13/21 0331 NA 140 K 3.9 CL 111* CO2 19.4* AGAP 9.6 BUN 41* CR 2.07* GFRNON 24* GFR 28* GLU 99 CA 9.5 No results found. Daivd Escobar is a pleasant 70-year-old female with a past medical history of suspected COPD, chronic kidney disease stage III, depression, hypertension, and CVA who was transferred from an outside hospitalwith elevated troponin and BNP. ?? Acute congestive heart failure -Unknown ejection fraction -Lasix 40 mg IV daily. Hold off on potassium supplementation as she is on the higher side. -Strict intake and output with daily weights- weight down 2.4 kg, I&O inaccurate. -Continue beta-daniel. -Echocardiogram shows an ejection fraction of 70% with mild mitral regurgitation. -Nuclear perfusion scan was negative for ischemia. -[facility] on board. ?? Elevated troponin -Demand ischemia versus ACS -Continue to trend troponins-trending down. -Echocardiogram shows an ejection fraction 70% with mild mitral regurgitation. -Nuclear perfusion scan is negative for ischemia and shows a preserved ejection fraction. -Monitor telemetry. -Continue aspirin, beta-daniel, and statin. -[facility] on board. ?? COPD exacerbation -DuoNebs every 6 hours as needed. -Albuterol inhaler every 4 hours as needed. -Chest x-ray unremarkable. -Covid antigen negative. -We will obtain PFTs. -Add prednisone 40 mg p.o. daily. ?? Chronic kidney disease stage III -Renal function is at baseline. -Monitor renal function closely with diuresis. ?? CVA -Residual right-sided weakness. -Continue aspirin and statin. ?? DVT prophylaxis -Lovenox ?? CODE STATUS -Full Code Discharge Disposition 1 to 2 days. MARCELLUS FANG Cosigned by Too Owens MD at 01/13/2021 3:08 PM CDT Associated attestation - Too Owens MD - 01/13/2021 3:08 PM CDT I, TOO OWENS MD, performed an examination of the patient and discussed the management with the Advanced Practice Provider (NAHUN). I reviewed the NAHUN's progress note and agree with the findings and plan of care, except as I have documented. 70-year-old female with past medical history of possible COPD, chronic disease, stage III, hypertension, CVA, depression comes with complaints of elevated troponin and shortness of breath. Echocardiogram done shows EF 70%. Creatinine today trending down to 2.07. LDL 69. Patient underwent stress test as per cardiology recommendations. Serial troponin monitored and trending down. Patient seen afterstress test. Mild wheezing heard on bilateral lungs. Started on p.o. prednisone 40 mg daily. Givingbreathing treatments and O2 supplementation as needed. Will await stress test results and recommendations from cardiology for discharge plan. Anticipate discharge tomorrow if no intervention from cardiology and symptoms improve * ANTONIA Guerrero - 01/13/2021 11:30 AM CDT Images from the original note were not included. Cardiology Progress Note ID: Alayna Lawrence is a 70-year-old female : 1950 JASSON VALDIVIA MD Primary Expander: Dr. Ambriz consulting this admit LOS: 1 History CC: SOB HPI: Alayna Lawrence is a pleasant 70-year-old year old female with a history of CVA, HTN, HLD, chronic kidney disease and frequent UTIs. She complains of hand and arm cramping. Will replace K today. Telemetry: NSR ASSESSMENT/PLAN: 1. Acute heart failure, otherwise unspecified EF 70% (01/12) 2. Elevated troponin 3. CKD 4. HTN 5. HLD - LDL 69, HDL 45 6. Hx of CVA - right side somewhat affected, trace residual ?? Diurese. Lasix 40 mg IV daily ordered. She is usually on 20 mg po at home daily. Replace serum potassium to greater than 4.0 and serum magnesium to greater than 2.0. Trend troponin. ASA, BB, statin. NM pharm stress test ordered today, no evidence of ischemia. ?? Past Medical History Past Medical History: Diagnosis Date ??? CKD [...] Use Topics ??? Alcohol use: Not Currently Family History Problem Relation Name Age of Onset ??? Heart Attack Mother No Known Allergies Medications: Prior to Admission medications Medication Sig Start Date End Date Taking? Authorizing Provider albuterol sulfate HFA 108 (90 Base) MCG/ACT inhaler 01/10/21 Yes Doc Abstract amLODIPine 5 MG tablet 12/21/20 Yes Doc Abstract aspirin EC 81 MG tablet Take 81 mg by mouth daily. Yes Doc Abstract furosemide 20 MG tablet 01/10/21 Yes Doc Abstract GABAPENTIN 600 MG tablet TAKE ONE TABLET BY MOUTH THREE TIMES DAILY. 07/02/20 Yes Huber Milligan MD meloxicam 15 MG tablet 03/25/20 Yes Doc Abstract metoprolol succinate ER 50 MG 24 hr tablet Take 50 mg by mouth daily. 11/08/18 Yes Doc Abstract vitamin D3, cholecalciferol, 5000 UNITS capsule Take 1 capsule by mouth daily. Yes Doc Abstract traMADol 50 MG tablet 03/10/20 Doc Abstract ??? amLODIPine 5 mg Oral Daily ??? aspirin EC 81 mg Oral Daily ??? atorvastatin 40 mg Oral Nightly at bedtime ??? enoxaparin 30 mg Subcutaneous Nightly (enoxaparin) ??? furosemide 40 mg Intravenous Daily ??? gabapentin 600 mg Oral TID ??? meloxicam 15 mg Oral Daily ??? metoprolol succinate ER 50 mg Oral Daily ??? normal saline 3-10 mL Intravenous Q8H ??? predniSONE 40 mg Oral Daily ??? vitamin D3 (cholecalciferol) 5,000 Units Oral Daily albuterol sulfate HFA, ipratropium-albuterol, normal saline Review of Systems HENT: Negative for headaches. Respiratory: Positive for shortness of breath. Negative for cough. SOB improved Cardiovascular: See HPI. Positive for leg swelling.Negative for chest pain, orthopnea and claudication. Gastrointestinal: Negative for heartburn and nausea. Neurological: Negative for dizziness. Hx CVA residual right weakness All other systems reviewed and are negative. Physical Exam / Lab / Imaging OBJECTIVE: Today's Weight: Last Recorded Weight 01/13/21 0500 Weight: 73.8 kg (162 lb 11.2 oz) Weight change in the last 24 hours: an appropriate measurement is not found Vital signs in the last 24 hours: Temp: [97.7 ??F (36.5 ??C)-99 ??F (37.2 ??C)] 98.1 ??F (36.7 ??C) Pulse: [58-65] 64 Resp: [16-20] 20 BP: (140-172)/(63-100) 140/94 Cardiac Exam Rate/Rhythm: Normal rate and regular rhythm. PMI: Pulses: Radial pulses are 2+ on the right side and 2+ on the left side. Posterior tibial pulses are 1+ on the right side and 1+ on the left side. Heart Sounds: Normal heart sounds. Normal S1 sounds. Normal S2 sounds. Murmurs: Edema left: 1+. Edema Right: 1+. Physical Exam Constitutional: HENT: Eyes: Pupils equal, round, and reactive to light. Neck: Normal range of motion. No JVD. Abdomen: Abdomen soft. Bowel sounds normal. Pulmonary: Effort normal. Breath sounds normal. Breath sounds not diminished. Skin: Dry. Warm. Musculoskeletal: Right side weak d/t hx CVA. Neurological: Alert. Oriented x 3. Comments: Labs and Cultures: Lab Results Component Value Date NA 140 01/13/2021 K 3.9 01/13/2021 CL 111 (H) 01/13/2021 CO2 PENDING 01/13/2021 AGAP PENDING 01/13/2021 BUN PENDING 01/13/2021 CR 2.07 (H) 01/13/2021 GFRNON 24 (L) 01/13/2021 GFR 28 (L) 01/13/2021 GLU PENDING 01/13/2021 CA PENDING 01/13/2021 Lab Results Component Value Date WBC 8.8 01/13/2021 HGB 13.9 01/13/2021 PLT 264 01/13/2021 Lab Results Component Value Date CHOL 141 01/13/2021 TRI 135 01/13/2021 HDL 45 (L) 01/13/2021 TP 6.9 01/12/2021 ALB 3.3 (L) 01/12/2021 ALT 12 (L) 01/12/2021 Imaging: USE ECHOCARDIOGRAM Result Date: 01/12/2021 Echocardiography Report Pat.Name: ALAYNA LAWRENCE Pat.ID: [id number] St.Date: 01/12/2021 Refer.:[id number] MAUREEN QUIROZ EWDPROV EWDPROV Exam Time: 4:16:00 PM Study Type:ECHO WITH CARDIAC DOPPLER COMP Height: 170cm Weight: 76kg BSA: 1.87 m2 Age: 6 1950,70Y Sex: FEMALE BP: 156/89 HR: 58 bpm Sonogrphr: Maye Pierce RDCS, RVT, RDMS Pat. Stat.:Inpatient Room: [facility] CPT - 4: 71042 Reason for Study:Shortness of breath Procedures: 2D, M-mode, Doppler, Color Flow, Portable ++++++++++++++++++++++++++++++++++++ SUMMARY: ++++++++++++++++++++++++++++++++++++ The left ventricular size is normal. The calculated ejection fraction is 70%. Wall motion appears normal in all segments. The right ventricular size is normal. Right ventricular systolic function is normal. Right ventricular systolic pressure is 33 mmHg. No evidence of pericardial effusion. Normal aortic root. Inferior vena cava shows >50% collapse with respiration consistent with normal right atrial pressure. There is no a ortic stenosis. Mild mitral regurgitation. A trace of tricuspid regurgitation. ++++++++++++++++++++++++++++++++++++ FINDINGS: ++++++++++++++++++++++++++++++++++++ LV: The left ventricular size is normal. The left ventricular systolic function is hyperdynamic. The calculated ejection fraction is 70%. Mild concentric left ventricular hypertrophy. The lateral E/e' is elevated at >11. Left ventricular diastolic function is abnormal (grade 1 - impaired relaxation). WM: Wall motion appears normal in all segments. RV: The right ventricular size is normal. Right ventricular systolic function is normal. Right ventricular systolic pressure is 33 mmHg. TAPSE = 19mm (<16 mm indicates systolic RV dysfunction). LA: The left atrial volume is normal ( less than 34 ml/M2). RA: Right atrial size is normal. ARIELLA: No evidence of pericardial effusion. AO: Normal aortic root. PA: Estimated right atrialpressure of 3 mmHg. SVn: Inferior vena cava shows >50% collapse with respiration consistent with normal right atrial pressure. AV: The aortic valve is trileaflet. There is no aortic stenosis. There is no evidence of aortic regurgitation. MV: Mild mitral regurgitation. Mild thickening of mitral valve leaflets. PV: Pulmonic valve not well visualized. TV: Structurally normal tricuspid valve. A trace of tricuspid regurgitation. ++++++++++++++++++++++++++++++++++++ MEASUREMENTS: ++++++++++++++++++++++++++++++++++++ DOPPLER LVOT LVOTpkPG 7 mmHg LVOTmnPG 5 mmHg LVOTpkVel 135 cm/s (70-110)* LVOT SV 89 ml LVOT TVI 34.8 cm AV Forward Flow AV TVI 33.3 cm AV pkPG 9 mmHg AV pkVel 147 cm/s (100-170) Area (TVI) 2.69 cm2 (3-5)* AV mnVel 117 cm/s Area (Thaddeus) 2.36 cm2 (3-5)* AV mnPG 6 mmHg MV Forward Flow MV DeTm 306 ms MV E/A 0.7 MVA P1/2t 2.44 cm2 (4-6)* MV pkE 83.1 cm/s (60- 130) MV P1/2t 90 ms (30-60)+* MV pkA 126 cm/s TV Regurg Flow TV pkPG 30 mmHg TV pkVel 274 cm/s (30-70)* Right Ventricle RVsys P 33 mmHg Right Ventricle 12.3 cm/s Lat E' Lat e 4.79 cm/s Lat E/E' Lat E/e 17.3 Med E' Med e 3.37 cm/s Med E/E' Med E/e 24.7 Aortic Valve Aortic Valve Ar 1.44 Aortic Valve Ve 0.92 AV DI Value 1 GUILLERMINA (VTI) Index Value 1.44 LV Mass 2D Value 104 g LV Mass [id number] Value 55.6 g/m2 RA Volume Atrial Burns 4.49 cm Atrial Burns 14.4 cm2 Atrial Burns 38.4 ml 2D Left Ventricle LVIDd 4.32 cm (3.6-5.2) LV EF(Bi-Plane) 70 % (55-75) LVIDs 2.66 cm (2.3-3.9) LVPW LVPWd 0.75 cm Right Ventricle RV LAx 7 cm RV MidCav D 2.5 cm RV Basal D 3.96 cm Ventricular Septum IVSd 0.83 cm Aorta Ao Rtd 3.32 cm (zsc 1.7) LVOT LVOT 1.81 cm Tricuspid Valve TV dayton 2.4 cm (1.9-2.5) Ratios IVS LA Biplane LAVol I BP 31.1 ml/m2 MMODE Left Atrium LAID 3.5 cm (1.9- 4) Ratios LA/Ao 1.06 (0.87-1.1) Aorta Ao Rt 3.3 cm (2-3.7)Tricuspid Valve TAPSE 1.91 cm Signed 01/12/2021 05:19 PM Olman Ambriz M.D. XR CHEST PORTABLE Result Date: 01/12/2021 Examination: Portable chest. Exam time: 1134 [...] clear. Referred By: GABRIELLA REDDY Interpreted By: Zoë Saul MD, 01/12/2021 11:55 AM No results found for this visit on 01/12/21. Signed ANTONIA GUERRERO 01/13/2021 Cosigned by Olman Ambriz MD at 01/13/2021 3:03 PM CDT Associated attestation - Olman Ambriz MD - 01/13/2021 3:03 PM CDT I, OLMAN AMBRIZ MD, performed an examination of the patient and [facility] the [facility] I reviewed the NAHUN's progress note and agree with the findings and plan of care, except as I have documented. Patient is feeling well today. Echocardiogram shows preserved LV contractility and no significant valvular or pericardial abnormalities. Perfusion scan is normal. Her cardiac diagnosis is acute exacerbation of chronic diastolic heart failure. I recommend gentle diuresis closely monitoring the renal function. Progressive renal failure may be a contributing factor to fluid retention. In light of her severe hypertension and loss of one of her kidneys I will order renal artery duplexultrasound to rule out hemodynamically severe stenosis of the single remaining kidney. * Tanvi M Tilling, RN - 01/13/2021 8:58 AM CDT Lives alone in [place], plans to return home at d/c. Does not drive, otherwise is independent. Son provides needed transportation. Uses cane at times Current with [facility]. Updates were faxed.. Has been at [facility] in [place] in past. PCP is Dr Ravindra Valdivia. Son will transport at d/c.No needs identified at this time 01/13/21 0867 Referral Data Referral Reason Discharge Planning Source of Information Patient Patient Information Primary Caregiver Self Support System Immediate family Baseline ADL's Functional Status Independent (does not drive) Living Arrangements Alone (lives in [place]) Type of Residence Private residence Ambulation Assistance No Active DME Cane Bathing/Grooming Assistance No Dressing Assistance No Behavior Oriented;Cooperative Communication Talks Current Services Being Provided Home [facility] Socioeconomic Needs Caregiver Needed No Adequate Resources Yes Anticipated Discharge Needs Change in Living Arrangements No In-Home Care or Equipment No Vocational and/or Role Loss No Inability to Complete ADL's No Anticipated DC Plan Living Arrangements Alone Support Systems Children Type of Residence Private residence Assistance Needed No Patient expects to be discharged to: Home * Ailin Meneses RN - 01/13/2021 2:16 AM CDT Placed call alston within reach, assistance provided as needed, instructed to report any untoward symptoms, no subjective complaints. Patient refused to take her oral meds from the hospital due to financial constraints. Problem: Reduced risk for falls/injury Goal: Reduced [...] policy, and non-skid footwear provided. Outcome: Progressing * Ben Ayoub RN - 01/12/2021 5:10 PM CDTSummary: refused to bring medications home Family opted to take there own medications * Debora Venegas PharmD - 01/12/2021 3:06 PM CDT Pharmacy Clinical Services: Renal Dose Adjustment Note CREATININE S/P/B Date Value Ref Range Status 01/12/2021 2.11 (H) 0.55 - 1.02 MG/DL Final CrCl = estimated creatinine clearance is 24.5 mL/min (A) (based on SCr of 2.11 mg/dL (H)). Weight = According to the patient's renal function, enoxaparin was adjusted from 40 mg every 24 hours to 30 mg every 24 hours. Renal adjustment per P&T Policy DEBORA VENEGAS PharmD Phone number: [phone] 01/12/2021 3:06 PM documented in this encounter H&P Notes * JOSE FangP-BC - 01/12/2021 4:09 PM CDT [facility] Hospitalist History & Physical Attending Provider: Xavier Gardner MD PCP: JASSON VALDIVIA MD Chief Complaint: SOB HPI: Alayna Lawrence is an 70-year-old female with a past medical history of stage III chronic kidney disease, depression, hypertension, CVA, hyperlipidemia, neuropathy, and suspected COPD. Patient was transferred from an outside hospital with complaints of dyspnea. She was found to have an elevated troponin and BNP. Patient states she has had chronic dyspnea on exertion and fatigue since her stroke 2 years ago. However, over the past few weeks she has had increasing shortness of breath with exertion as well as orthopnea. She has had lower extremity edema and abdominal distention. She states she has gained somewhere between 15 and 20 pounds. She has had some early satiety as well. She does report a cough that is nonproductive. She denies any chest discomfort. She saw her PCP who gave her an inhaler and scheduled her for outpatient echo and PFTs that have not yet been completed. She denies any fever, chills, or sweats. No sore throat or nasal congestion. No abdominal pain, nausea, vomiting, or diarrhea.No black or bloody stools. No dysuria or urinary frequency. EKG shows sinus rhythm with inferior and septal T wave abnormalities, lateral infarct age undetermined. Covid PCR was negative. Chest x-ray showed minimal right basal subsegmental atelectasis. Labs are notable for BUN of 40, creatinine 2.11, troponin 307, and proBNP 881. Patient had a DuoNeb prior to transfer. Past Medical History: Diagnosis Date ??? CKD (chronic kidney disease) ??? COPD (chronic obstructive pulmonary disease) (CMS/HCC) ??? Depression ??? Displaced fracture of proximal end of right humerus 11/06/2018 ??? HLD (hyperlipidemia) ??? Hypertension ??? Ischemic stroke (CMS/HCC) ??? Neuropathy ??? UTI (urinary tract infection) Past Surgical History: Procedure Laterality Date ??? JOINT REPLACEMENT ??? SHOULDER SURGERY ??? TOTAL HIP ARTHROPLASTY bilateral No Known Allergies Social History Tobacco Use ??? Smoking status: Former Smoker Packs/day: 1.00 Types: Cigarettes ??? Smokeless tobacco: Never Used Substance Use Topics ??? Alcohol use: Not Currently Family History Problem Relation Name Age of Onset ??? Heart Attack Mother No current facility-administered medications on file prior to encounter. Current Outpatient Medications on File Prior to Encounter Medication Sig ??? albuterol sulfate HFA 108 (90 Base) MCG/ACT inhaler ??? amLODIPine 5 MG tablet ??? aspirin [...] capsule Take 1 capsule by mouth daily. ??? traMADol 50 MG tablet Review of Systems Constitutional: Positive for malaise/fatigue. Negative for chills, fever and weight loss. HENT: Negative for congestion, hearing loss and sore throat. Eyes: Negative for blurred vision and double vision. Respiratory: Positive for cough, shortness of breath and wheezing. Negative for hemoptysis and sputum production. Cardiovascular: Positive for orthopnea and leg swelling. Negative for chest pain, palpitations, claudication and PND. Gastrointestinal: Negative for abdominal pain, blood in stool, constipation, diarrhea, melena, nausea and vomiting. Genitourinary: Negative for dysuria, frequency, hematuria and urgency. Musculoskeletal: Negative for falls. Skin: Negative for rash. Neurological: Negative for dizziness, tingling, weakness and headaches. Endo/Heme/Allergies: Does not bruise/bleed easily. Blood pressure (!) 156/89, pulse 65, temperature 99 ??F (37.2 ??C), height 5' 7 (1.702 m), weight 76.2 kg (167 lb 15.9 oz), SpO2 94 %. Physical Exam Constitutional: She is oriented to person, place, and time. She appears well- developed and well-nourished. No distress. HENT: Head: Normocephalic and atraumatic. Eyes: Pupils are equal, round, and reactive to light. Conjunctivae are normal. Neck: No JVD present. Cardiovascular: Normal rate, regular rhythm, normal heart sounds and intact distal pulses. Pulmonary/Chest: Effort normal. No stridor. She has wheezes (mild expiratory ). She has rales in the right lower field and the left lower field. Abdominal: Soft. Bowel sounds are normal. She exhibits no distension and no mass. There is no abdominal tenderness. There is no rebound and no guarding. Musculoskeletal: General: Edema (1+ pitting bilateral ankles/feet) present. Normal range of motion. Cervical back: Normal range of motion and neck supple. Neurological: She is alert and oriented to person, place, and time. No cranial nerve deficit. Skin: Skin is warm and dry. She is not diaphoretic. Psychiatric: She has a normal mood and affect. Her behavior is normal. Vitals reviewed. Recent Labs 01/12/21 1120 WBC 6.8 HGB 13.4 HCT 42.9 MCV 96.8 PLT 231 RBC 4.43 Recent Labs Lab 01/12/21 1120 NA 143 K 4.6 CL 110* CO2 24.8 AGAP 8.2 BUN 40* CR 2.11* GFRNON 23* GFR 27* GLU 108* CA 8.8 TP 6.9 ALB 3.3* TBIL 0.3 ALKP 88 AST 11* ALT 12* Recent Labs Lab 01/12/21 1120 INR 0.9 No results found for this visit on 01/12/21. XR CHEST PORTABLE Result Date: 01/12/2021 IMPRESSION: Minimal right basal subsegmental atelectasis. Otherwise clear. Referred By: GABRIELLA REDDY Interpreted By: Zoë Saul MD, 01/12/2021 11:55 AM Assessment / Plan: Luz is a pleasant 70-year-old female with a past medical history of suspected COPD, chronic kidney disease stage III, depression, hypertension, and CVA who was transferred from an outside hospitalwith elevated troponin and BNP. Acute congestive heart failure -Unknown ejection fraction -Lasix 40 mg IV daily. Hold off on potassium supplementation as she is on the higher side. -Strict intake and output with daily weights. -Continue beta-daniel. -We will obtain an echocardiogram to further assess her left ventricular and valvular function. -[facility] on board. Elevated troponin -Demand ischemia versus ACS -Continue to trend troponins. -We will obtain an echocardiogram to rule further assess her left ventricular and valvular function. -Monitor telemetry. -Continue aspirin, beta-daniel, and statin. -[facility] on board. COPD exacerbation -DuoNebs every 6 hours as needed. -Albuterol inhaler every 4 hours as needed. -Chest x-ray unremarkable. -Covid antigen negative. -We will obtain PFTs. Chronic kidney disease stage III -Renal function is at baseline. -Monitor renal function closely with diuresis. CVA -Residual right-sided weakness. -Continue aspirin and statin. DVT prophylaxis -Lovenox CODE STATUS -Full Code [facility]- 01/12/2021 Cosigned by Xavier Gardner MD at 01/12/2021 5:13 PM CDT Associated attestation - Xavier Gardner MD - 01/12/2021 5:13 PM CDT I, XAVIER GARDNER MD, performed a History and Physical examination of the patient and discussed the management with the Advanced Practice Provider (NAHUN). I reviewed the NAHUN's note and agree with the findings and plan of care, except as I have documented. Seen, stable undergoing Echo. Plan to Diurese with IV Lasix 40 mg . Echo, serial enzymes, she is chest pain free currently. Poor memory due to hx of stroke. NPO at midnight for stress test tomorrow C/w Nebs for COPD documented in this encounter Consult Notes * Rochelle Blunt, BRANDON - 01/12/2021 3:22 PM CDT CARDIOLOGY CONSULTATION: Dr. Ambriz ASSESSMENT &PLAN 1. Acute heart failure, otherwise unspecified 2. Elevated troponin 3. CKD 4. HTN 5. HLD 6. Hx of CVA Diurese. Lasix 40 mg IV daily ordered. She is usually on 20 mg po at home daily. Echo. This will be her initial echo. Trend troponin. Lipid panel in a.m. She has been on atorvastatin 40 mg in the past. Pt and son unsure when/why thiswas stopped. ASA, BB, statin. NPO after MN. Tentatively have [facility] pharm stress test ordered. CHIEF COMPLAINT: SOB HISTORY OF PRESENT ILLNESS: This is a 70-year-old female with history of CVA, hypertension, hyperlipidemia, chronic kidney disease, UTI who presents with shortness of breath and lower extremity edema. The patient was hospitalized in October with altered mental status and urinary tract infection. At that time her creatinine was2.18-2.55. She was started on Lasix at that time. For months now she has had lower extremity edema and been short of breath. On Sunday she saw her primary care physician who ordered an echo and PFTs.These are in the process of being scheduled. This morning the patient awoke slightly confused and short of breath. Confusion was one of her initial symptoms when she was hospitalized for UTI so she sought care in the emergency room given the symptoms. In the emergency room her creatinine was noted to be 2.11, proBNP 881, troponin 307. EKG showed sinus rhythm without any acute ischemic changes Q waves in the lateral leads. Currently the patient is in room 660. Her son, Zack, is at bedside. He assist with much of the history. She is on room air. She is resting comfortably. She denies any recent chest pain, chest pressure. Past Medical History: Diagnosis Date ??? CKD (chronic kidney disease) ??? Depression ??? Displaced fracture of proximal end of right humerus 11/06/2018 ??? HLD (hyperlipidemia) ??? Hypertension ??? Ischemic stroke (CMS/HCC) ??? Neuropathy ??? UTI (urinary tract infection) Past Surgical History: Procedure Laterality Date ??? JOINT REPLACEMENT ??? SHOULDER SURGERY ??? TOTAL HIP ARTHROPLASTY bilateral Medications Prior to Admission Medication Sig Dispense Refill ??? albuterol sulfate HFA 108 (90 Base) MCG/ACT inhaler ??? amlodipine 10 MG tablet Take 10 mg by mouth daily. 1 ??? amLODIPine 5 MG tablet ??? aspirin EC 81 MG tablet Take 81 mg by mouth daily. ??? furosemide 20 MG tablet ??? GABAPENTIN 600 MG tablet TAKE ONE TABLET BY MOUTH THREE TIMES DAILY. 90 tablet 4 ??? meloxicam 15 MG tablet ??? metoprolol succinate ER 50 MG 24 hr tablet Take 50 mg by mouth daily. 2 ??? metoprolol tartrate 50 MG tablet ??? traMADol 50 MG tablet ??? vitamin D3, cholecalciferol, 5000 UNITS capsule Take 1 capsule by mouth daily. No Known Allergies Social History Tobacco Use ??? Smoking status: Former Smoker Packs/day: 1.00 Types: Cigarettes ??? Smokeless tobacco: Never Used Substance Use Topics ??? Alcohol use: Not Currently Family History Problem Relation Name Age of Onset ??? Heart Attack Mother REVIEW OF SYSTEMS Review of Systems Constitutional: Positive for fatigue and weakness. HENT: Negative for nosebleeds. Eyes: Negative for blurred vision. Respiratory: Positive for shortness of breath. Cardiovascular: Positive for leg swelling.Negative for chest pain. Gastrointestinal: Negative for nausea and vomiting. Genitourinary: Negative for hematuria. Musculoskeletal: Negative for myalgias. Skin: Negative for rash. Neurological: Negative for LOC. Endo/Heme/Allergies: Negative for polydipsia. Psychiatric/Behavioral: Negative for new or significant memory loss. MEDICATIONS Scheduled Meds: ??? enoxaparin 30 mg Subcutaneous Nightly (enoxaparin) ??? normal saline 3-10 mL Intravenous Q8H Continuous Infusions: PRN Meds: normal saline OBJECTIVE There were no vitals filed for this visit. Current BMI: There is no height or weight on file to calculate BMI. Vitals: 01/12/21 1505 BP: (!) 156/89 Pulse: 65 Temp: SpO2: 94% Physical Exam Constitutional: She is oriented to person, place, and time. She appears well- developed and well-nourished. No distress. Cardiovascular: Normal rate and intact distal pulses. Pulmonary/Chest: Effort normal. No respiratory distress. Abdominal: Soft. Musculoskeletal: General: Edema (2+ FRANCISCO J bilaterlly, pitting. ) present. Cervical back: Normal range of motion. Neurological: She is oriented to person, place, and time. Skin: Skin is warm. Psychiatric: She has a normal mood and affect. Her behavior is normal. Judgment and thought contentnormal. Pertinent Labs: Lab Results Component Value Date NA 143 01/12/2021 K 4.6 01/12/2021 CL 110 (H) 01/12/2021 CO2 24.8 01/12/2021 BUN 40 (H) 01/12/2021 CR 2.11 (H) 01/12/2021 GFRNON 23 (L) 01/12/2021 GFR 27 (L) 01/12/2021 GLU 108 (H) 01/12/2021 CA 8.8 01/12/2021 TROP 307 (HH) 01/12/2021 Lab Results Component Value Date WBC 6.8 01/12/2021 HGB 13.4 01/12/2021 PLT 231 01/12/2021 INR 0.9 01/12/2021 Lab Results Component Value Date ALB 3.3 (L) 01/12/2021 ALT 12 (L) 01/12/2021 Radiology Results (Last 48 hours) 01/12/21 1148 XR CHEST PORTABLE Final result Impression: IMPRESSION: Minimal right basal subsegmental atelectasis. Otherwise clear. Referred By: GABRIELLA REDDY Interpreted By: Jacky Saul MD, 01/12/2021 11:55 AM Cosigned by Olman Ambriz MD at 01/12/2021 5:49 PM CDT Associated attestation - Olman Ambriz MD - 01/12/2021 5:49 PM CDT I, OLMAN AMBRIZ MD, performed a Consultation and History & Physical examination of the patient and discussed the management with the Advanced Practice Provider (NAHUN). I reviewed the NAHUN's note and agree with the findings and plan of care, except as I have documented. Plan of care developed under my direct supervision. I independently examined the patient and discussed plan with patient and her son. 1. Shortness of breath, presumed heart failure. Echocardiogram is pending. Continue diuresis. 2 history of cerebrovascular accident, vascular neurology recommended implantation of a loop recorder. We will follow up on it. 3. To assess for myocardial perfusion adenosine Cardiolite stress test is ordered. If markedly abnormal, the patient and son requested conversation as they are concerned about her pre-existing renalfailure with unilateral functioning kidney. documented in this encounter Plan of Treatment Not on file documented as of this encounter Procedures Procedure Name Priority Date/Time Associated Diagnosis Comments PULMONARY FUNCTION TEST Routine 02/01/2021 8:49 AM SPICE MIXER USV ABD PEL OR RETRO DUPLEX COMP Today 01/14/2021 9:25 AM CDT COMPREHENSIVE METABOLIC PANEL STAT 01/14/2021 8:54 AM CDT CBC W/DIFF AUTOMATED STAT 01/14/2021 8:54 AM CDT CARDIOLOGY STRESS TEST ONLY, EXERCISE Routine 01/13/2021 11:12 AM CDT Unstable angina ([facility] HHS/HCC) Ischemic stroke ([facility] HHS/HCC) NM PHARM NUC STRESS TEST 1DAY Today 01/13/2021 10:56 AM CDT HC URINALYSIS AUTO W/MICRO Nurse Collected Priority 01/13/2021 4:00 AM CDT BASIC METABOLIC PANEL Routine 01/13/2021 3:31 AM CDT LIPID PANEL Routine 01/13/2021 3:31 AM CDT CBC W/DIFF AUTOMATED Routine 01/13/2021 3:31 AM CDT TROPONIN, QUANT TIMED 01/13/2021 3:31 AM CDT MAGNESIUM Routine 01/13/2021 3:31 AM CDT TROPONIN, QUANT TIMED 01/12/2021 9:04 PM CDT USE ECHOCARDIOGRAM Today 01/12/2021 4: 58 PM CDT TROPONIN, QUANT TIMED 01/12/2021 3:40 PM CDT documented in this encounter Results * Complete PFT (pre/post Ronnie, Lung Vol, Diff Capacity) (53924, 54220, 97523, [id number]) (02/01/2021 8:49 AM SPICE MIXER) 02/01/2021 8:49 AM SPICE MIXER Narrative ESCRIPTION - 02/01/2021 12:14 PM SPICE MIXER Patient is a 70-year-old female, height 67 inches, weight 162 pounds. REFERRED BY: ??Columba Xavier. INTERPRETING PHYSICIAN: ??Johnnie Bueno MD STUDIES PERFORMED: ??Full pulmonary function test. Spirometry forced vital capacity is 1.46 liters, 46% predicted. ??FEV1 is 0.29% predicted. ??FEV1/FVC ratio was 0.51 with administration of a bronchodilator. ??There was significant increase in both the forced vital capacity and FEV1 was 37% ??and 44% respectively. LUNG VOLUMES: ??Total lung capacity is 97% predicted. ??RV/TLC ratio is slightly raised. ??Airway resistance was increased. DIFFUSION CAPACITY: ??DLCO was 66% predicted in consideration for alveolar ventilation is 96% predicted. SUMMARY: ??Patient demonstrates a severe obstructive ventilatory defect with evidence of airway reversibility with administration of a bronchodilator, some evidence of air trapping, increased airway resistance and [id number] reduction in diffusion capacity. ??Findings are consistent with COPD. D: ??02/01/2021 08:49 AM #[id number] T: ??02/01/2021 10:48 AM /NTS us Columba Xavier ACNP-BC PFT ORDERABLES Final R esult ESCRIPTION * USV ABD PEL OR RETRO DUPLEX COMP (01/14/2021 9:25 AM CDT) Anatomical Region Laterality Modality NA Ultrasound 01/14/2021 9:03 AM CDT Narrative 01/14/2021 10:57 AM CDT ?Vascular Report Pat.Name: ??ALAYNA LAWRENCE ?Pat.ID: ?[id number] ? St.Date: ?? 01/14/2021 ?Refer.MD: ??OLMAN AMBRIZ ? Exam Time: 9:03:00 AM ? Study Type:PVI DUPLEX SCAN-RENAL ART Height: ?67in ?Age: ??1950,70Y ? Sex: ? FEMALE ?Sonogrphr: Ning Herrera, MERLYNT ? Pat. Stat.:Inpatient ? Room: ?660 ? CPT - 4: ?67898 Arterial Inflow and Venous outflow Renal complete Reason for Study:Renal artery stenosis Race: ?W ? ++++++++++++++++++++++++++++++++++++ FINDINGS: ++++++++++++++++++++++++++++++++++++ R Kidney: Kidney dimensions are within normal limits. Resistive index ?suggests no evidence of intrinsic kidney disease. Rt Renal Art: Renal artery appears patent without evidence of a ?hemodynamically significant stenosis. The renal aortic ?ratio is 1.7. The renal vein is patent. L Kidney: Kidney is severely atrophic. Lt Renal Art: Unable to visualize the renal artery. ++++++++++++++++++++++++++++++++++++ MEASUREMENTS: ++++++++++++++++++++++++++++++++++++ ? AO-ILIAC Left Kidney ?? Kidney Size ?4.6 cm ? Right Kidney ?? Kidney Size ? 11.2 cm ?PARENCHYMA Right Lower Pole Arcuate Artery ?? Lower Pole Arcu ??15.4 cm/s ? Lower Pole Arcu 0.675 ? Lower Pole Arcu ? 5 cm/s ? Right Mid Pole Arcuate Artery ?? Mid Pole Arcuat ?25 cm/s ? Mid Pole Arcuat ?? 0.6 ? Mid Pole Arcuat ?10 cm/s ? Right Upper Pole Arcuate Artery ?? Upper Pole Arcu ??22.5 cm/s ? Upper Pole Arcu 0.689 ? Upper Pole Arcu ? 7 cm/s ?DOPPLER Juxta AO ?? Juxta AO PSV ?52 cm/s ?RENAL ART Right Origin ?? Origin PSV ?82 cm/s ?Origin EDV ?28 cm/s Right Prox ?? Prox PSV ?88 cm/s ?Prox EDV ?22 cm/s Right Mid ?? Mid PSV ? 65 cm/s ?Mid EDV ? 20 cm/s Right Distal ?? Distal PSV ?70 cm/s ?Distal EDV ?19 cm/s Right RAR ?? RAR PSV ? 1.69 ? Signed 01/14/2021 10:57 AM Marimar Bailey M.D. Procedure Note Marimar Bailey MD - 01/14/2021 Vascular Report Pat.Name: ALAYNA LAWRENCE Pat.ID: [id number] St.Date: 01/14/2021 Refer.MD: OLMAN AMBRIZ Exam Time: 9:03:00 AM Study Type:PVI DUPLEX SCAN-RENAL ART Height: 67in Age: 6 1950,70Y Sex: FEMALE Sonogrphr: Ning Herrera, RVT Pat. Stat.:Inpatient Room: [facility] CPT - 4: 45827 Arterial Inflow and Venous outflow Renal complete Reason for Study:Renal artery stenosis Race: W ++++++++++++++++++++++++++++++++++++ FINDINGS: ++++++++++++++++++++++++++++++++++++ R Kidney: Kidney dimensions are within normal limits. Resistive index suggests no evidence of intrinsic kidney disease. Rt Renal Art: Renal artery appears patent without evidence of a hemodynamically significant stenosis. The renal aortic ratio is 1.7. The renal vein is patent. L Kidney: Kidney is severely atrophic. Lt Renal Art: Unable to visualize the renal artery. ++++++++++++++++++++++++++++++++++++ MEASUREMENTS: ++++++++++++++++++++++++++++++++++++ AO-ILIAC Left Kidney Kidney Size 4.6 cm Right Kidney Kidney Size 11.2 cm PARENCHYMA Right Lower Pole Arcuate Artery Lower Pole Arcu 15.4 cm/s Lower Pole Arcu 0.675 Lower Pole Arcu 5 cm/s Right Mid Pole Arcuate Artery Mid Pole Arcuat 25 cm/s Mid Pole Arcuat 0.6 Mid Pole Arcuat 10 cm/s Right Upper Pole Arcuate Artery Upper Pole Arcu 22.5 cm/s Upper Pole Arcu 0.689 Upper Pole Arcu 7 cm/s DOPPLER Juxta AO Juxta AO PSV 52 cm/s RENAL ART Right Origin Origin PSV 82 cm/s Origin EDV 28 cm/s Right Prox Prox PSV 88 cm/s Prox EDV 22 cm/s Right Mid Mid PSV 65 cm/s Mid EDV 20 cm/s Right Distal Distal PSV 70 cm/s Distal EDV 19 cm/s Right RAR RAR PSV 1.69 Signed 01/14/2021 10:57 AM Marimar Bailey M.D. Olman Ambriz MD [facility] Final Result * (ABNORMAL) COMPREHENSIVE METABOLIC PANEL (01/14/2021 8:54 AM CDT) SODIUM S/P/B 141 136 - 145 MMOL/L 01/14/2021 9:53 AM CDT [facility] POTASSIUM S/P/B 4.5 3.5 - 5.1 MMOL/L 01/14/2021 9:53 AM CDT [facility] CHLORIDE S/P/B 112(H) 98 - 107 MMOL/L 01/14/2021 9:53 AM CDT [facility] CO2 23.0 21.0 - 32.0 MMOL/L 01/14/2021 9:53 AM CDT [facility] GLUCOSE 97 74 - 106 MG/DL 01/14/2021 9:53 AM T [facility] BUN 56(H) 7 - 18 MG/DL 01/14/2021 9:53 AM T [facility] CREATININE S/P/B 2.65(H) 0.55 - 1.02 MG/DL 01/14/2021 9:53 AM T [facility] CALCIUM S/P/B 9.2 8.5 - 10.1 MG/DL 01/14/2021 9:53 AM T [facility] BILIRUBIN TOTAL S/P/B 0.5 0.2 - 1.0 MG/DL 01/14/2021 9:53 AM T [facility] ALKALINE PHOSPHATASE S/P/B 89 55 - 142 U/L 01/14/2021 9:53 AM [facility] AST 10(L) 15 - 37 U/L 01/14/2021 9:53 AM T [facility] ALT 15 13 - 56 U/L 01/14/2021 9:53 AM [facility] TOTAL PROTEIN S/P/B 6.8 6.4 - 8.2 G/DL 01/14/2021 9:53 AM [facility] ALBUMIN S/P/B 3.3(L) 3.4 - 5.0 G/DL 01/14/2021 9:53 AM [facility] ANION GAP 6.0 5.0 - 15.0 MMOL/L 01/14/2021 9:53 AM T [facility] OSMOLALITY (CALC) 307 MOSM/KG 021 9:53 AM [facility] Comment:REFERENCE RANGE NOT ESTABLISHED EGFR NON-AFR. AMER. 18(L) >90 ML/MIN/1. 73 M2 01/14/2021 9:53 AM T [facility] EGFR AFR. AMER. 20(L) >90 ML/MIN/1. 73 M2 01/14/2021 9:53 AM CDT [facility] GFR NOTES GFR REFERENCE S: 01/14/2021 9:53 AM CDT [facility] Comment: THE ESTIMATED GFR IS CALCULATED [...] ml/min/1.73 m2 G5,KIDNEY FAILURE: <15 ml/min/1.73 m2 01/14/2021 8:54 AM CDT us Too Owens MD LABORATORY Final Res ult [facility] [address] [place] [address], [phone] * (ABNORMAL) CBC W/DIFF AUTOMATED (01/14/2021 8:54 AM CDT) WBC 10.3 4.0 - 10.8 x10'3/uL 01/14/2021 9:16 AM CDT [facility] RBC 4.95 4.10 - 5.40 x10'6/uL 01/14/2021 9:16 AM CDT [facility] HGB 14.8 12.0 - 16.0 G/DL 01/14/2021 9:16 AM CDT [facility] HCT 46.4 36.0 - 47.0 % 01/14/2021 9:16 AM CDT [facility] MCV 93.7 78.0 - 100.0 FL 01/14/2021 9:16 AM CDT [facility] MCH 29.9 27.0 - 31.0 PG 01/14/2021 9:16 AM CDT [facility] MCHC 31.9(L) 33.0 - 36.0 G/DL 01/14/2021 9:16 AM CDT [facility] RDW 13.5 11.5 - 14.5 % 01/14/2021 9:16 AM CDT [facility] PLT 305 150 - 350 x10'3/uL 01/14/2021 9:16 AM CDT [facility] MPV 10.4 7.4 - 10.4 FL 01/14/2021 9:16 AM CDT [facility] ABS. NEUTROPHILS 6.65 1.60 - 8.30 x10'3/uL 01/14/2021 9:16 AM CDT [facility] ABS. LYMPHOCYTES 2.61 0.80 - 4.70 x10'3/uL 01/14/2021 9:16 AM CDT [facility] ABS. MONOCYTES 0.89 0.00 - 1.50 x10'3/uL 01/14/2021 9:16 AM CDT [facility] ABS. EOSINOPHILS 0.10 0.00 - 0.40 x10'3/uL 01/14/2021 9:16 AM CDT [facility] ABS. BASOPHILS 0.05 0.00 - 0.20 x10'3/uL 01/14/2021 9:16 AM CDT [facility] ABS. IMMATURE GRANULOCYTES 0.03 0.00 - 0.03 x10'3/uL 01/14/2021 9:16 AM CDT [facility] ABS. NUCLEATED RBC'S 0.00 0.0 x10'3/uL 01/14/2021 9:16 AM CDT [facility] 01/14/2021 8:54 AM CDT us Too Owens MD LABORATORY Final Res ult [facility] [address] [place] [address], [phone] * Cardiology Stress Test Only, Exercise (01/13/2021 11:12 AM CDT) 01/13/2021 11:1 2 AM CDT Narrative ESCRIPTION - 01/19/2021 9:24 AM CDT REFERRAL BY: ??Columba Xavier MD INTERPRETING PHYSICIAN: ??Johnnie Bueno MD STUDIES PERFORMED: ??Full pulmonary function test. Patient is a 70-year-old female, height 67 inches, weight 162 pounds. SPIROMETRY: ??Forced vital capacity is 1.46 liters, 46% predicted. ??FEV1 is 0.74 liters, 29% predicted. ??FEV1/FVC ratio is 0.51. ??The administration of a bronchodilator, there was significant increase in forced vital capacity and FEV1 by 37 and 44% respectively. LUNG VOLUMES: ??Total lung capacity is 5.24 liters, 97% predicted. ??RV to TLC ratio is raised. DIFFUSION CAPACITY: ??DLCO was decreased. ??Findings are consistent with severe obstructive ventilatory defect with evidence of airway reversibility and air trapping and hyperinflation. SUMMARY: ??Findings are most consistent with COPD. ??Clinical correlation is required for definitive diagnosis. D: ??01/13/2021 11:12 AM #[id number] T: ??01/13/2021 09:49 PM /NTS us Olman Ambriz MD CV CARDIAC SERVICES ORDERABLES Final Result Performing Organization Address [facility] Co de Phone Number ESCRIPTION * NM PHARM NUC STRESS TEST 1DAY (01/13/2021 10:56 AM CDT) Anatomical Region Laterality Modality Cardiac Nuclear Medicine 01/13/2021 8:12 AM CDT Narrative 01/13/2021 1:24 PM CDT ?MYOCARDIAL PERFUSION SCAN Pat.Name: ??ALAYNA LAWRENCE ?Pat.ID: ?[id number] ? St.Date: ?? 01/13/2021 ?Refer.MD: ??ROCHELLE BLUNT ? Exam Time: 8:12:00 AM ? Study Type:NC Ht Muscle Image SPECT Multi Nuclear Height: ?67in ?Weight: ?162lb ? BSA: ? 1.85 m2 ?Age: ??1950,70Y ? Sex: ? 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 Pat. Stat.:Inpatient ? Room: ?660 ? Reason for Study:Abnormal electrocardiogram, (ECG/EKG), Angina pectoris, unspecified, abn troponins Procedures: Adenosine Stress, Stress Gated SPECT, Rest SPECT, Non prone camera. Race: ?W ? Risk Factors:Chronic kidney disease, CVA, Depression, Family history, Hypertension, Hypercholesterolemia, Former Smoker, neuropathy Medications:albuterol sulfate ??amlodipine ??amlodipine ??asa ??furosemide gabapentin ??meloxicam ??metoprolol succinate ??tramadol ??vit d3 ++++++++++++++++++++++++++++++++++++ SUMMARY: ++++++++++++++++++++++++++++++++++++ Negative electrocardiographic portion of adenosine stress test. The patient had no complaints of chest pain, had chest fullness. Normal Perfusion Study. There is no evidence of Transient Ischemic Dilatation. Left ventricular EF is 71 %. ??Probable Left ventricular hypertrophy. ++++++++++++++++++++++++++++++++++++ FINDINGS: ++++++++++++++++++++++++++++++++++++ Stress Findings: Negative electrocardiographic portion of adenosine ?stress test. The patient had no complaints of chest ?pain, had chest fullness. Impr: ? Normal Perfusion Study. Transient Ischemic Dilatation: The TID is 0.79. There is no evidence ?of Transient Ischemic Dilatation. LV Perfusion Results: There is normal tracer distribution during ?stress and at rest. Gated SPECT Results: The left ventricular ejection fraction is normal ?with normal regional wall motion and left ventricular ?thickening. The left ventricle is of normal size ?at stress and at rest. Left ventricular EF is 71 ?%. Study Quality/Artifacts: The study quality is good. ++++++++++++++++++++++++++++++++++++ STRESS: ++++++++++++++++++++++++++++++++++++ Baseline Vital Signs: ?Intervention ??Adenosine Baseline ECG Cannot rue out Anterolateral infarct, Cannot rule out Inferior infarct, LAFBPeak Dose ??41.4 mg Rest HR ?79 ?Atropine Administered: 0 Rest BP ?146/96 ?Duration ?? 06:00 Baseline Rhythm Normal sinus rhythm Stress Test Results: Symptoms and Complications: Arrhythmias Occasional PVC's, Transient AV izzy block with infusion Reason for Stopping Test: Protocol completed Stress Induced Symptoms: Dyspnea, Shortness of breath, chest fullness ECG Findings: ??No ischemic S-T changes occurred with stress Signed 01/13/2021 01:24 PM Joe Meraz M.D. Procedure Note Joe Meraz MD - 01/13/2021 MYOCARDIAL PERFUSION SCAN Pat.Name: ALAYNA LAWRENCE Pat.ID: [id number] .Date: 01/13/2021 Refer.MD: ROCHELLE BLUNT Exam Time: 8:12:00 AM Study Type:NC Ht Muscle Image SPECT Multi Nuclear Height: 67in Weight: 162lb BSA: 1.85 m2 Age: 6 1950,70Y Sex: FEMALE Sonogrphr: OC Melgoza Pat. Stat.:Inpatient Room: [facility] Reason for Study:Abnormal electrocardiogram, (ECG/EKG), Angina pectoris, unspecified, abn troponins Procedures: Adenosine Stress, Stress Gated SPECT, Rest SPECT, Non prone camera. Race: W Risk Factors:Chronic kidney disease, CVA, Depression, Family history, Hypertension, Hypercholesterolemia, Former Smoker, neuropathy Medications:albuterol sulfate amlodipine amlodipine asa furosemide gabapentin meloxicam metoprolol succinate tramadol vit d3 ++++++++++++++++++++++++++++++++++++ SUMMARY: ++++++++++++++++++++++++++++++++++++ Negative electrocardiographic portion of adenosine stress test. The patient had no complaints of chest pain, had chest fullness. Normal Perfusion Study. There is no evidence of Transient Ischemic Dilatation. Left ventricular EF is 71 %. Probable Left ventricular hypertrophy. ++++++++++++++++++++++++++++++++++++ FINDINGS: ++++++++++++++++++++++++++++++++++++ Stress Findings: Negative electrocardiographic portion of adenosine stress test. The patient had no complaints of chest pain, had chest fullness. Impr: Normal Perfusion Study. Transient Ischemic Dilatation: The TID is 0.79. There is no evidence of Transient Ischemic Dilatation. LV Perfusion Results: There is normal tracer distribution during stress and at rest. Gated SPECT Results: The left ventricular ejection fraction is normal with normal regional wall motion and left ventricular thickening. The left ventricle is of normal size at stress and at rest. Left ventricular EF is 71 %. Study Quality/Artifacts: The study quality is good. ++++++++++++++++++++++++++++++++++++ STRESS: ++++++++++++++++++++++++++++++++++++ Baseline Vital Signs: Intervention Adenosine Baseline ECG Cannot rue out Anterolateral infarct, Cannot rule out Inferior infarct, LAFBPeak Dose 41.4 mg Rest HR 79 Atropine Administered: 0 Rest BP 146/96 Duration 06:00 Baseline Rhythm Normal sinus rhythm Stress Test Results: Symptoms and Complications: Arrhythmias Occasional PVC's, Transient AV izzy block with infusion Reason for Stopping Test: Protocol completed Stress Induced Symptoms: Dyspnea, Shortness of breath, chest fullness ECG Findings: No ischemic S-T changes occurred with stress Signed 01/13/2021 01:24 PM Joe Meraz M.D. Rochelle Blunt CLINICAL MICROBIOLOGIST NUC MED Final Result * (ABNORMAL) URINALYSIS (01/13/2021 4:00 AM CDT) COLOR (U) LIGHT ORANGE 01/14/2021 5:23 AM CDT [facility] TRANSPARENCY CLOUDY 01/14/2021 5:23 AM CDT [facility] SPECIFIC GRAVITY (U) 1.015 1.002 - 1.035 01/14/2021 5:23 AM CDT [facility] U PH 6.5 5 - 8 01/14/2021 5:23 AM CDT [facility] PROTEIN (U) 300(A) NEGATIVE 01/14/2021 5:23 AM CDT [facility] URINE GLUCOSE NEGATIVE NEGATIVE MG/DL 01/14/2021 5:23 AM CDT [facility] KETONES MG/DL (U) NEGATIVE NEGATIVE 01/14/2021 5:23 AM CDT [facility] BILIRUBIN (U) NEGATIVE NEGATIVE 01/14/2021 5:23 AM CDT [facility] BLOOD (U) 1+(A) NEGATIVE 01/14/2021 5:23 AM CDT [facility] NITRITES NEGATIVE NEGATIVE 01/14/2021 5:23 AM CDT [facility] UROBILINOGEN NORMAL 0 - 1 EU/DL 01/14/2021 5:23 AM CDT [facility] LEUKOCYTES (U) 3+(A) NEGATIVE 01/14/2021 5:23 AM CDT [facility] RBC/HPF 73(H) 0 - 3 /HPF 01/14/2021 5:23 AM CDT [facility] WBC/HPF >182(H) 0 - 6 /HPF 01/14/2021 5:23 AM CDT [facility] Comment:PLEASE CALL THE LAB WITHIN 2 HOURS IF ACTUAL NUMBER OF CELLS IS REQUIRED. BACTERIA (U) PRESENT /HPF 01/14/2021 5:23 AM CDT [facility] SQUAMOUS EPITHELIALS 1 01/14/2021 5:23 AM CDT [facility] WBC CLUMPS PRESENT 01/14/2021 5:23 AM CDT [facility] URINE SPECIMEN OBTAINED BY CLEAN CATCH PROCEDURE / Unknown 01/13/2021 4:00 AM CDT Xavier Gardner MD URINE ORDERABLES Final Result [facility] [address] [place] [address], [phone] * (ABNORMAL) LIPID PANEL (01/13/2021 3:31 AM CDT) CHOLESTEROL 141 MG/DL 01/13/2021 7:36 AM CDT [facility] Comment:DESIRABLE: <200 TRIGLYCERIDES 135 MG/DL 01/13/2021 7:36 AM CDT [facility] Comment:<150 NORMAL HDL 45(L) >49 MG/DL 01/13/2021 7:36 AM CDT [facility] LDL (CALCULATED) 69 MG/DL 01/14/20 7:36 AM CDT [facility] Comment:<100 OPTIMAL VLDL CALCULATION 27 MG/DL 01/14/20 7:36 AM CDT [facility] Comment:REFERENCE RANGE NOT ESTABLISHED CHOL/HDL RATIO 3.1 01/13/2021 7:36 AM CDT [facility] Comment:REFERENCE RANGE NOT ESTABLISHED LDL/HDL 1.5 01/13/2021 7:36 AM CDT [facility] Comment:REFERENCE RANGE NOT ESTABLISHED NON HDL CHOLESTEROL 96 MG/DL 01/13/2021 7:36 AM CDT [facility] Comment:REFERENCE RANGE NOT ESTABLISHED 01/13/2021 3:31 AM CDT Rochelle Blunt NP LABORATORY Final Result Performing Organization Address [facility] Co de Phone Number [facility] [address] [place] [address], [phone] * (ABNORMAL) TROPONIN, QUANT (01/13/2021 3:31 AM CDT) Pathologist [facility] TROPONIN I HIGH SENSITIVITY 251(H) 0 - 53 ng/L 01/13/2021 7:36 AM CDT [facility] 01/13/2021 3:31 AM CDT Xavier Gardner MD LABORATORY Final Result Performing Organization Address [facility] de Phone Number [facility] [address] [place] [address], [place] [phone] * MAGNESIUM (01/13/2021 3:31 AM CDT) [facility] MAGNESIUM 2.3 1.6 - 2.6 MG/DL 01/13/2021 7:36 AM CDT [facility] 01/13/2021 3:31 AM CDT Xavier Gardner MD LABORATORY Final Result Performing Organization Address [facility] de Phone Number [facility] [address] [place] [address], [phone] * (ABNORMAL) BASIC METABOLIC PANEL (01/13/2021 3:31 AM CDT) Pathologist [facility] SODIUM S/P/B 140 136 - 145 MMOL/L 01/13/2021 7:36 AM CDT [facility] POTASSIUM S/P/B 3.9 3.5 - 5.1 MMOL/L 01/13/2021 7:36 AM T [facility] CHLORIDE S/P/B 111(H) 98 - 107 MMOL/L 01/13/2021 7:36 AM T [facility] CO2 19.4(L) 21.0 - 32.0 MMOL/L 01/13/2021 2:43 PM T [facility] GLUCOSE 99 74 - 106 MG/DL 01/13/2021 2:43 PM T [facility] BUN 41(H) 7 - 18 MG/DL 01/13/2021 2:43 PM T [facility] CREATININE S/P/B 2.07(H) 0.55 - 1.02 MG/DL 01/13/2021 7:36 AM T [facility] CALCIUM S/P/B 9.5 8.5 - 10.1 MG/DL 01/13/2021 2:43 PM T [facility] ANION GAP 9.6 5.0 - 15.0 MMOL/L 01/13/2021 2:43 PM T [facility] OSMOLALITY (CALC) 300 MOSM/KG 021 2:43 PM [facility] Comment:REFERENCE RANGE NOT ESTABLISHED EGFR NON-AFR. AMER. 24(L) >90 ML/MIN/1. 73 M2 01/13/2021 7:36 AM T [facility] EGFR AFR. AMER. 28(L) >90 ML/MIN/1. 73 M2 01/13/2021 7:36 AM T [facility] GFR NOTES GFR REFERENCE S: 01/13/2021 7:36 AM [facility] Comment: THE ESTIMATED GFR [...] ml/min/1.73 m2 G5,KIDNEY FAILURE: <15 ml/min/1.73 m2 01/13/2021 3:31 AM CDT Xavier Gardner MD LABORATORY Final Result [facility] [address] [place] [address], [phone] * (ABNORMAL) CBC W/DIFF AUTOMATED (01/13/2021 3:31 AM CDT) WBC 8.8 4.0 - 10.8 x10'3/uL 01/13/2021 4:10 AM CDT [facility] RBC 4.55 4.10 - 5.40 x10'6/uL 01/13/2021 4:10 AM CDT [facility] HGB 13.9 12.0 - 16.0 G/DL 01/13/2021 4:10 AM CDT [facility] HCT 42.2 36.0 - 47.0 % 01/13/2021 4:10 AM CDT [facility] MCV 92.7 78.0 - 100.0 FL 01/13/2021 4:10 AM CDT [facility] MCH 30.5 27.0 - 31.0 PG 01/13/2021 4:10 AM CDT [facility] MCHC 32.9(L) 33.0 - 36.0 G/DL 01/13/2021 4:10 AM CDT [facility] RDW 13.4 11.5 - 14.5 % 01/13/2021 4:10 AM CDT [facility] PLT 264 150 - 350 x10'3/uL 01/13/2021 4:10 AM CDT [facility] MPV 10.6(H) 7.4 - 10.4 FL 01/13/2021 4:10 AM CDT [facility] ABS. NEUTROPHILS 5.88 1.60 - 8.30 x10'3/uL 01/13/2021 4:10 AM CDT [facility] ABS. LYMPHOCYTES 1.72 0.80 - 4.70 x10'3/uL 01/13/2021 4:10 AM CDT [facility] ABS. MONOCYTES 0.84 0.00 - 1.50 x10'3/uL 01/13/2021 4:10 AM CDT [facility] ABS. EOSINOPHILS 0.23 0.00 - 0.40 x10'3/uL 01/13/2021 4:10 AM CDT [facility] ABS. BASOPHILS 0.06 0.00 - 0.20 x10'3/uL 01/13/2021 4:10 AM CDT [facility] ABS. IMMATURE GRANULOCYTES 0.02 0.00 - 0.03 x10'3/uL 01/13/2021 4:10 AM CDT [facility] ABS. NUCLEATED RBC'S 0.00 0.0 x10'3/uL 01/13/2021 4:10 AM CDT [facility] 01/13/2021 3:31 AM CDT us Xavier Gardner MD LABORATORY Final Result [facility] [address] [place] [address], [phone] * (ABNORMAL) TROPONIN, QUANT (01/12/2021 9:04 PM CDT) TROPONIN I HIGH SENSITIVITY 292(H) 0 - 53 ng/L 01/12/2021 9:40 PM CDT [facility] 01/12/2021 9:04 PM CDT Xavier Gardner MD LABORATORY Final Result Performing Organization Address [facility]/State/ZIP Co de Phone Number [facility] [address] [place] [address], [phone] * USE ECHOCARDIOGRAM (01/12/2021 4:58 PM CDT) Anatomical Region Laterality Modality Cardiac Echocardiogram 01/12/2021 4:16 PM CDT Narrative 01/12/2021 5:19 PM CDT ?Echocardiography Report Pat.Name: ??ALAYNA LAWRENCE ?Pat.ID: ?[id number] ? St.Date: ?? 01/12/2021 ? Refer.MD: ??[id number] MAUREEN QUIROZ ?EWDPROV ?EWDPROV Exam Time: 4:16:00 PM ? Study Type:ECHO WITH CARDIAC DOPPLER COMP Height: ?170cm ? Weight: ?76kg ? BSA: ? 1.87 m2 ?Age: ??1950,70Y ? Sex: ? FEMALE ?BP: ?156/89 ? HR: ?58 bpm ? Sonogrphr: Maye Pierce RDCS, RVT, RDMS Pat. Stat.:Inpatient ? Room: ?660 ? CPT - 4: ?10558 ? Reason for Study:Shortness of breath Procedures: 2D, M-mode, Doppler, Color Flow, Portable ++++++++++++++++++++++++++++++++++++ SUMMARY: ++++++++++++++++++++++++++++++++++++ The left ventricular size is normal. The calculated ejection fraction is 70%. Wall motion appears normal in all segments. The right ventricular size is normal. Right ventricular systolic function is normal. Right ventricular systolic pressure is 33 mmHg. No evidence of pericardial effusion. Normal aortic root. Inferior vena cava shows >50% collapse with respiration consistent with normal right atrial pressure. There is no aortic stenosis. Mild mitral regurgitation. A trace of tricuspid regurgitation. ++++++++++++++++++++++++++++++++++++ FINDINGS: ++++++++++++++++++++++++++++++++++++ LV: ? The left ventricular size is normal. The left ventricular ?systolic function is hyperdynamic. The calculated ejection ?fraction is 70%. Mild concentric left ventricular ?hypertrophy. The lateral E/e' is elevated at >11. Left ?ventricular diastolic function is abnormal (grade 1 - ?impaired relaxation). WM: ? Wall motion appears normal in all segments. RV: ? The right ventricular size is normal. Right ventricular ?systolic function is normal. Right ventricular systolic ?pressure is 33 mmHg. TAPSE = 19mm (<16 mm indicates systolic ?RV dysfunction). LA: ? The left atrial volume is normal ( less than 34 ml/M2). RA: ? Right atrial size is normal. ARIELLA: ? No evidence of pericardial effusion. AO: ? Normal aortic root. PA: ? Estimated right atrial pressure of 3 mmHg. SVn: ?Inferior vena cava shows >50% collapse with respiration ?consistent with normal right atrial pressure. AV: ? The aortic valve is trileaflet. There is no aortic stenosis. ?There is no evidence of aortic regurgitation. MV: ? Mild mitral regurgitation. Mild thickening of mitral valve ?leaflets. PV: ? Pulmonic valve not well visualized. TV: ? Structurally normal tricuspid valve. A trace of tricuspid ?regurgitation. ++++++++++++++++++++++++++++++++++++ MEASUREMENTS: ++++++++++++++++++++++++++++++++++++ ?DOPPLER LVOT ?? LVOTpkPG ? 7 mmHg ?LVOTmnPG ? 5 mmHg LVOTpkVel ?135 cm/s (70-110)* LVOT SV ? 89 ml ?? LVOT TVI ?34.8 cm ? AV Forward Flow AV TVI ?33.3 cm ?AV pkPG ?9 mmHg AV pkVel ? 147 cm/s (100-170) Area (TVI) ?2.69 cm2 ??(3-5)* AV mnVel ? 117 cm/s ?Area (Thaddeus) ?2.36 cm2 ??(3-5)* AV mnPG ?6 mmHg ? MV Forward Flow MV DeTm ?306 ms ?MV E/A ? 0.7 ? MVA P1/2t ? 2.44 cm2 ??(4-6)* ?? MV pkE ?83.1 cm/s (60-130) MV P1/2t ?90 ms ?? (30-60)+* MV pkA ? 126 cm/s TV Regurg Flow TV pkPG ? 30 mmHg ?TV pkVel ? 274 cm/s (30- 70)* Right Ventricle ?? RVsys P ? 33 mmHg ?Right Ventricle ??12.3 cm/s Lat E' ?? Lat e ? 4.79 cm/s ? Lat E/E' ?? Lat E/e ? 17.3 ? Med E' ?? Med e ? 3.37 cm/s ? Med E/E' ?? Med E/e ? 24.7 ? Aortic Valve ?? Aortic Valve Ar ??1.44 ?Aortic Valve Ve ??0.92 ? AV DI ?? Value ?1 ? GUILLERMINA (VTI) Index ?? Value ? 1.44 ? LV Mass 2D ?? Value ?104 g ? LV Mass [id number] ?? Value ? 55.6 g/m2 ? RA Volume ?? Atrial Burns ?? 4.49 cm ? Atrial Burns ?? 14.4 cm2 Atrial Burns ?? 38.4 ml ?2D Left Ventricle ?? LVIDd ? 4.32 cm ?? (3.6-5.2) LV EF(Bi-Plane) ?70 % ?(55-75) LVIDs ? 2.66 cm ?? (2.3-3.9) LVPW ?? LVPWd ? 0.75 cm ? Right Ventricle ?? RV LAx ? 7 cm ?RV MidCav D ?2.5 cm ?? RV Basal D ?3.96 cm ? Ventricular Septum ?? IVSd ?0.83 cm ? Aorta ?? Ao Rtd ?3.32 cm ?? (zsc 1.7) LVOT ?? LVOT ?1.81 cm ? Tricuspid Valve ?? TV dayton ? 2.4 cm ?? (1.9-2.5) Ratios ?? IVS LA Biplane LAVol I BP ?31.1 ml/m2 ?MMODE Left Atrium ?? LAID ? 3.5 cm ?? (1.9-4) Ratios ?? LA/Ao ? 1.06 ?(0.87-1.1) Aorta ?? Ao Rt ?3.3 cm ?? (2-3.7) Tricuspid Valve ?? TAPSE ? 1.91 cm ? Signed 01/12/2021 05:19 PM Olman Ambriz M.D. Procedure Note Olman Ambriz MD - 01/12/2021 Echocardiography Report Pat.Name: ALAYNA LAWRENCE Pat.ID: [id number] .Date: 01/12/2021 : [id number] MAUREEN QUIROZ EWDPROV EWDPROV Exam Time: 4:16:00 PM Study Type:ECHO WITH CARDIAC DOPPLER COMP Height: 170cm Weight: 76kg BSA: 1.87 m2 Age: 6 1950,70Y Sex: FEMALE BP: 156/89 HR: 58 bpm Sonogrphr: Maye Pierce RDCS, RVT, RDMS Pat. Stat.:Inpatient Room: [facility] CPT - 4: 74014 Reason for Study:Shortness of breath Procedures: 2D, M-mode, Doppler, Color Flow, Portable ++++++++++++++++++++++++++++++++++++ SUMMARY: ++++++++++++++++++++++++++++++++++++ The left ventricular size is normal. The calculated ejection fraction is 70%. Wall motion appears normal in all segments. The right ventricular size is normal. Right ventricular systolic function is normal. Right ventricular systolic pressure is 33 mmHg. No evidence of pericardial effusion. Normal aortic root. Inferior vena cava shows >50% collapse with respiration consistent with normal right atrial pressure. There is no aortic stenosis. Mild mitral regurgitation. A trace of tricuspid regurgitation. ++++++++++++++++++++++++++++++++++++ FINDINGS: ++++++++++++++++++++++++++++++++++++ LV: The left ventricular size is normal. The left ventricular systolic function is hyperdynamic. The calculated ejection fraction is 70%. Mild concentric left ventricular hypertrophy. The lateral E/e' is elevated at >11. Left ventricular diastolic function is abnormal (grade 1 - impaired relaxation). WM: Wall motion appears normal in all segments. RV: The right ventricular size is normal. Right ventricular systolic function is normal. Right ventricular systolic pressure is 33 mmHg. TAPSE = 19mm (<16 mm indicates systolic RV dysfunction). LA: The left atrial volume is normal ( less than 34 ml/M2). RA: Right atrial size is normal. ARIELLA: No evidence of pericardial effusion. AO: Normal aortic root. PA: Estimated right atrial pressure of 3 mmHg. SVn: Inferior vena cava shows >50% collapse with respiration consistent with normal right atrial pressure. AV: The aortic valve is trileaflet. There is no aortic stenosis. There is no evidence of aortic regurgitation. MV: Mild mitral regurgitation. Mild thickening of mitral valve leaflets. PV: Pulmonic valve not well visualized. TV: Structurally normal tricuspid valve. A trace of tricuspid regurgitation. ++++++++++++++++++++++++++++++++++++ MEASUREMENTS: ++++++++++++++++++++++++++++++++++++ DOPPLER LVOT LVOTpkPG 7 mmHg LVOTmnPG 5 mmHg LVOTpkVel 135 cm/s (70-110)* LVOT SV 89 ml LVOT TVI 34.8 cm AV Forward Flow AV TVI 33.3 cm AV pkPG 9 mmHg AV pkVel 147 cm/s (100-170) Area (TVI) 2.69 cm2 (3-5)* AV mnVel 117 cm/s Area (Thaddeus) 2.36 cm2 (3-5)* AV mnPG 6 mmHg MV Forward Flow MV DeTm 306 ms MV E/A 0.7 MVA P1/2t 2.44 cm2 (4-6)* MV pkE 83.1 cm/s (60-130) MV P1/2t 90 ms (30-60)+* MV pkA 126 cm/s TV Regurg Flow TV pkPG 30 mmHg TV pkVel 274 cm/s (30-70)* Right Ventricle RVsys P 33 mmHg Right Ventricle 12.3 cm/s Lat E' Lat e 4.79 cm/s Lat E/E' Lat E/e 17.3 Med E' Med e 3.37 cm/s Med E/E' Med E/e 24.7 Aortic Valve Aortic Valve Ar 1.44 Aortic Valve Ve 0.92 AV DI Value 1 GUILLERMINA (VTI) Index Value 1.44 LV Mass 2D Value 104 g LV Mass Bankq2R Value 55.6 g/m2 RA Volume Atrial Burns 4.49 cm Atrial Burns 14.4 cm2 Atrial Burns 38.4 ml 2D Left Ventricle LVIDd 4.32 cm (3.6-5.2) LV EF(Bi-Plane) 70 % (55-75) LVIDs 2.66 cm (2.3-3.9) LVPW LVPWd 0.75 cm Right Ventricle RV LAx 7 cm RV MidCav D 2.5 cm RV Basal D 3.96 cm Ventricular Septum IVSd 0.83 cm Aorta Ao Rtd 3.32 cm (zsc 1.7) LVOT LVOT 1.81 cm Tricuspid Valve TV dayton 2.4 cm (1.9-2.5) Ratios IVS LA Biplane LAVol I BP 31.1 ml/m2 MMODE Left Atrium LAID 3.5 cm (1.9-4) Ratios LA/Ao 1.06 (0.87-1.1) Aorta Ao Rt 3.3 cm (2-3.7) Tricuspid Valve TAPSE 1.91 cm Signed 01/12/2021 05:19 PM Olman Ambriz M.D. Rochelle Blunt NP ECHO Final Result * (ABNORMAL) TROPONIN, QUANT (01/12/2021 3:40 PM CDT) TROPONIN I HIGH SENSITIVITY 306(H) 0 - 53 ng/L 01/12/2021 4:34 PM CDT [facility] 01/12/2021 3:40 PM CDT Xavier Gardner MD LABORATORY Final Result [facility] [address] [place] [address], [id number] documented in this encounter Visit Diagnoses Diagnosis Unstable angina ([facility]/HCC HHS/HCC)- Primary Intermediate coronary syndrome Unstable angina ([facility] HHS/HCC) Intermediate coronary syndrome Ischemic stroke ([facility] HHS/HCC) Chronic obstructive pulmonary disease, unspecified COPD type ([facility]/HCC HHS/HCC) CHF exacerbation ([facility]) Congestive heart failure, unspecified documented in this encounter Admitting Diagnoses Diagnosis CHF exacerbation ([facility]) Congestive heart failure, unspecified Unstable angina ([facility]) Intermediate coronary syndrome documented in this encounter Administered Medications Inactive Administered Medications - up to 3 most recent administrations Medication Order MAR Action Action Date Dose Rate Site acetaminophen (TYLENOL) tablet 650 mg 650 mg, Oral, Once, 1 dose, On Joan 01/13/21 at 1600, Maximum dose of acetaminophen is 4000 mg from all sources in 24 hours. Given 01/13/2021 4:26 PM CDT 650 mg adenosine (ADENOSCAN) infusion (diagnostic) 41.4 mg 41.4 mg (rounded from 41.328 mg = 0.56 mg/kg ? 73.8 kg), Intravenous, at 207 mL/hr, Once, 1 dose, On Joan 01/13/21 at 1015Indications:Unstable angina ([facility]),Ischemic stroke ([facility]) New Bag 01/13/2021 10:30 AM CDT 41.4 mg 207 mL/hr atorvastatin (LIPITOR) tablet 40 mg 40 mg, Oral, Nightly at bedtime, First dose on Sun01/12/21 at 2100, Until Discontinued enoxaparin (LOVENOX) 30 MG/0.3ML syringe 30 mg 30 mg, Subcutaneous, Nightly (enoxaparin), First dose on Sun01/12/21 at 2100, Until Discontinued, Administer by deep SubQ injection alternating between the left or right anterolateral and left or right posterolateral abdominal wall. Given 01/13/2021 9:03 PM CDT 30 mg Left Lower Abdomen Given 01/12/2021 10:14 PM CDT 30 mg R ight Lower Abdomen furosemide (LASIX) injection 40 mg 40 mg, Intravenous, Daily, First dose on Sun01/12/21 at 1630, Until Discontinued, Administer IV push 20-40mg/min. Given 01/14/2021 8:42 AM CDT 40 mg Given 01/13/2021 9:42 AM CDT 40 mg Given 01/12/2021 5:55 PM CDT 40 mg gabapentin (NEURONTIN) capsule 600 mg 600 mg, Oral, 3 times daily, First dose on Sun01/12/21 at 2100, Until Discontinued normal saline 0.9 % flush 3-10 mL 3-10 mL, Intravenous, Every 8 hours, First dose on Sun01/12/21 at 1530, Until Discontinued Given 01/14/2021 8:42 AM CDT 10 mLs Given 01/13/2021 9:04 PM CDT 10 mLs Given 01/13/2021 9:42 AM CDT 10 mLs normal saline 0.9 % flush 3-10 mL 3-10 mL, Intravenous, As needed, Line care, Starting on Sun01/12/21 at 1501, Until Sun01/14/21 at 1642 potassium chloride CR (KLOR-CON M) tablet 20 mEq 20 mEq, Oral, Once, 1 dose, On Sun01/13/21 at 1500, Do not chew, crush, or suck on tablet. May break in half. May dissolve whole tablet in 120 mL of water and drink immediately. Given 01/13/2021 3:36 PM CDT 20 mEq predniSONE (DELTASONE) tablet 40 mg 40 mg, Oral, Daily, First dose on Sun01/13/21 at 0945, Until Discontinued Given 01/14/2021 8:43 AM CDT 40 mg Given 01/13/2021 9:42 AM CDT 40 mg documented in this encounter Active and Recently Administered Medications Times are shown in CDT. Scheduled Medication Order 01/12/2021 01/13/2021 01/14/2021 acetaminophen (TYLENOL) tablet 650 mg (COMPLETED) 650 mg, Oral, Once, 1 dose, On Sun01/13/21 at 1600, Maximum dose of acetaminophen is 4000 mg from all sources in 24 hours. 1626 (Given - Provider: Ben Ayoub RN) adenosine (ADENOSCAN) infusion (diagnostic) 41.4 mg (COMPLETED) 41.4 mg (rounded from 41.328 mg = 0.56 mg/kg ? 73.8 kg), Intravenous, at 207 mL/hr, Once, 1 dose, On Sun01/13/21 at 1015 1030 (New Bag - Provider: Yolanda Khan RN)1317 (Infusion Stop Time - Provider: Ben Ayoub RN) amLODIPine (NORVASC) tablet 5 mg 5 mg, Oral, Daily, First dose on Sun01/13/21 at 0900, Until Discontinued 820 (Not Given - Provider: Ben Ayoub RN - Reason: Patient/family declined) 843 (Not Given - Provider: Ava Ng Rai, RN - Reason: Patient/family declined) aspirin EC (ECOTRIN) tablet 81 mg 81 mg, Oral, Daily, First dose on Sun01/13/21 at 0900, Until Discontinued, Do not break, chew, or crush. 08 (Not Given - Provider: Ben Ayoub RN - Reason: Patient/family declined) 843 (Not Given - Provider: Ava Ng Rai, RN - Reason: Patient/family declined) atorvastatin (LIPITOR) tablet 40 mg 40 mg, Oral, Nightly at bedtime, First dose on Sun01/12/21 at 2100, Until Discontinued 2214 (Not Given - Provider: Ailin Meneses RN - Reason: Patient/family declined - Comment: pt refused) 2010 (Not Given - Provider: Lynda Vergara RN - Reason: Patient/family declined) enoxaparin (LOVENOX) 30 MG/0.3ML syringe 30 mg(Linked Group 1) 30 mg, Subcutaneous, Nightly (enoxaparin), First dose on Sun01/12/21 at 2100, Until Discontinued, Administer by deep SubQ injection alternating between the left or right anterolateral and left or right posterolateral abdominal wall. 2213 (Given - Provider: Ailin Meneses RN) 2102 (Given - Provider: Lynda Vergara RN) furosemide (LASIX) injection 40 mg 40 mg, Intravenous, Daily, First dose on Sun01/12/21 at 1630, Until Discontinued, Administer IV push 20-40mg/min. 175 (Given - Provider: Ben Ayoub RN) 941 (Given - Provider: Ben Ayoub RN) 841 (Given - Provider: Ava Ng Rai, RN) gabapentin (NEURONTIN) capsule 600 mg 600 mg, Oral, 3 times daily, First dose on Sun01/12/21 at 2100, Until Discontinued 2214 (Not Given - Provider: Ailin Meneses RN - Reason: Patient/family declined - Comment: pt refused) 0822 (Not Given - Provider: Ben Ayoub RN - Reason: Patient/family declined)1503 (Not Given - Provider: Ben Ayoub RN - Reason: Patient/family declined)2010 (Not Given - Provider: Lynda Vergara, DANIAL - Reason: Patient/family declined) 0844 (Not Given - Provider: Ava Ng Rai, RN - Reason: Patient/family declined)1600 (Canceled Entry - Provider: Automatic Discharge Provider - Comment: Automatically canceled at discontinue of medication order) meloxicam (MOBIC) tablet 15 mg 15 mg, Oral, Daily, First dose on Sun01/13/21 at 0900, Until Discontinued 08 (Not Given - Provider: Ben Ayoub RN - Reason: Patient/family declined) 0844 (Not Given - Provider: Ava Ng Rai, RN - Reason: Patient/family declined) metoprolol succinate ER (TOPROL-XL) 24 hr tablet 50 mg 50 mg, Oral, Daily, First dose on Sun01/13/21 at 0900, Until Discontinued, May be split in half along the tablet score line; do not chew or crush. 0822 (Not Given - Provider: Ben Ayoub RN - Reason: Patient/family declined) 0845 (Not Given - Provider: Ava Ng Rai, RN - Reason: Patient/family declined) normal saline 0.9 % flush 3-10 mL 3-10 mL, Intravenous, Every 8 hours, First dose on Sun01/12/21 at 1530, Until Discontinued 1755 (Given - Provider: Ben Ayoub, DANIAL)2216 (Given - Provider: Ailin Meneses, DANIAL) 0942 (Given - Provider: Ben Ayoub, DANIAL)1503 (Not Given - Provider: Ben Ayoub RN - Reason: Patient/family declined)2104 (Given - Provider: Lynda Vergara, RN) 0842 (Given - Provider: Ava Ng Rai, DANIAL)1530 (Canceled Entry - Provider: Automatic Discharge Provider - Comment: Automatically canceled at discontinue of medication order) potassium chloride CR (ROSETTE Dennison) tablet 20 mEq (COMPLETED) 20 mEq, Oral, Once, 1 dose, On Sun01/13/21 at 1500, Do not chew, crush, or suck on tablet. May break in half. May dissolve whole tablet in 120 mL of water and drink immediately. 1536 (Given - Provider: Ben Ayoub, DANIAL) predniSONE (DELTASONE) tablet 40 mg 40 mg, Oral, Daily, First dose on Sun01/13/21 at 0945, Until Discontinued 0942 (Given - Provider: Ben Ayoub RN) 0843 (Given - Provider: Ava Ng Rai, RN) vitamin D3 (cholecalciferol) tablet 5,000 Units 5,000 Units, Oral, Daily, First dose on Sun01/13/21 at 0900, Until Discontinued, 1000 units = 25 mcg 0823 (Not Given - Provider: Ben Ayoub RN - Reason: Patient/family declined) 0845 (Not Given - Provider: Ava Ng Rai, RN - Reason: Patient/family declined) PRN Medication Order 01/12/2021 01/13/2021 01/14/2021 albuterol sulfate HFA 108 (90 Base) MCG/ACT inhaler 2 puff 2 puff, Inhalation, Every 4 hours PRN, Wheezing, Starting on Sun01/12/21 at 1607, Until Sun01/14/21 at 1642 ipratropium-albuterol (DUONEB) 0.5-2.5 (3) MG/3ML nebulizer solution 3 mL 3 mL, Nebulization, Every 6 hours PRN, Shortness of breath, Starting on Sun01/12/21 at 1609, Until Sun01/14/21 at 1642 normal saline 0.9 % flush 3-10 mL 3-10 mL, Intravenous, As needed, Line care, Starting on Sun01/12/21 at 1501, Until Sun01/14/21 at 1642 Linked Groups Order Group 1: enoxaparin (LOVENOX) 30 MG/0.3ML syringe 30 mgJump to med 30 mg, Subcutaneous, Nightly (enoxaparin), First dose on Sun01/12/21 at 2100, Until Discontinued, Administer by deep SubQ injection alternating between the left or right anterolateral and left or right posterolateral abdominal wall. And Moderate Risk for VTE (COMPLETED) documented in this encounter Care Teams Rim Turning Finisher Relationship Specialty Start Date End Date Jasson Valdivia MD [address] [place] [phone] PCP - General FAMILY PRACTICE 11/03/18 Huber Milligan MD [address] [place] [phone] Consulting Physician Vascular Neurology 04/30/19 Norm Hopkins MD [address] [place] [phone] Consulting Physician CLINICAL CARDIAC ELECTROPHYSIOLOGY 04/30/19 documented as of this encounter
--- OUTSIDE RECORDS SUMMARY | 2024-03-19 18:40 | XMS_ITS | Encounter Summary ---
Author Organization [facility] Address [address] [place] [address]. [place], [place] [id number] [place] [id number] Care Team Providers Care Inside Sales Account Manager Name Role Phone Jasson Cueva MD Primary Care Provider Huber Milligan MD Unavailable [phone] Norm Hopkins MD Unavailable [phone] Encounter Details Date Type Department Care Team (Latest Contact Info) Description 03/11/2020 11:18 AM OPHTHALMIC TECHNICIAN APPRENTICE - 03/11/2020 11:59 PM OPHTHALMIC TECHNICIAN APPRENTICE Hospital Encounter [facility] [address] [place] [address] Jasson Cueva MD [address] [place] [phone] Discharge Disposition: Home or Self Care (Routine Discharge) Social History Tobacco Use Types Packs/Day Years Used Date Smoking Tobacco: Former Cigarettes Smokeless Tobacco: Never Alcohol Use Standard Drinks/Week Comments Not Currently 0 (1 standard drink = 0.6 oz pur e alcohol) Comments No Sex and Gender Information Value Date Recorded Sex Assigned at Not on file Legal 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 OPHTHALMIC TECHNICIAN APPRENTICE Gender Identity Not on file Sexual Orientation Not on file COVID-19 Exposure Response Date Recorded In the last month, have you been in contact with someone who was confirmed or suspected to have Coronavirus / COVID-19? No / Unsure 03/11/2020 11:16 AM OPHTHALMIC TECHNICIAN APPRENTICE documented as of this encounter Functional Status [...] Linder RN Active documented in this encounter Medications at Time of Discharge aspirin EC 81 MG tablet Take 1 tablet (81 mg total) by mouth daily. vitamin D3, cholecalciferol, 5000 UNITS capsule Take 1 capsule (125 mcg total) by mouth daily. amlodipine 10 MG tablet Take 10 mg by mouth daily. 1 11/11/2018 01/12/2021 gabapentin 600 MG tabletIndications :Neuropathic pain Take 1 tablet (600 mg total) by mouth 3 (three) times daily. 90 tablet 11 06/23/2019 07/02/2020 metoprolol succinate ER 50 MG 24 hr tablet Take 1 tablet (50 mg total) by mouth daily. 2 11/08/2018 01/06/2023 metoprolol tartrate 50 MG tablet 01/16/2020 01/12/2021 traMADol 50 MG tablet 03/10/2020 04/10/2021 documented as of this encounter Plan of Treatment Not on file documented as of this encounter Procedures Procedure Name Priority Date/Time Associated Diagnosis Comments XR HIP RT 2V Routine 03/11/2020 11:33 AM OPHTHALMIC TECHNICIAN APPRENTICE Right thigh pain XR FEMUR RT 2V Routine 03/11/2020 11:33 AM OPHTHALMIC TECHNICIAN APPRENTICE Right thigh pain documented in this encounter Results * XR FEMUR RT 2V (03/11/2020 11:33 AM OPHTHALMIC TECHNICIAN APPRENTICE) Anatomical Region Laterality Modality Femur Radiographic Sharon ging 03/11/2020 11:3 4 AM OPHTHALMIC TECHNICIAN APPRENTICE Impressions 03/11/2020 11:49 AM OPHTHALMIC TECHNICIAN APPRENTICE IMPRESSION: 1. ??Nondisplaced acute appearing fracture through the right superior pubic ramus as described. 2. ??No additional acute appearing fractures visualized in the right femur. 3. ??Fixation hardware and old healed fracture deformity intertrochanteric region of the proximal right femur. 4. ??Old healed fracture deformity right inferior pubic ramus. Interpreted By: Ryan Montoya MD, 03/11/2020 11:34 AM Narrative 03/11/2020 11:49 AM OPHTHALMIC TECHNICIAN APPRENTICE Right femur Exam Date: 03/11/2020 at 1124 hours. Indications: 69-year-old female with persistent right leg and hip pain after a fall approximately 2 weeks ago. ??The patient also has a more remote history of surgical repair of the right femur. Technique: 4 views of the right femur were obtained. Comparison: Images of the right hip obtained at the same time today and previous right hip x-rays dated 03/04/2020. Findings: Fixation hardware again visualized in the proximal right femur with old healed fracture deformity centered in the right intertrochanteric region. There is a new linear lucency extending through the lateral aspect of the right superior pubic ramus. ??This is also seen on today's dedicated right hip x-rays but not on the previous right hip x-rays (03/04/2020). ??This is consistent with a nondisplaced acute fracture involving the right superior pubic ramus which may be new since the recent x-rays or is now visible due to some demineralization around the fracture line. ??Old healed fracture deformity in the right inferior pubic ramus is unchanged. Procedure Note Ryan Montoya MD - 03/11/2020 Right femur Exam Date: 03/11/2020 at 1124 hours. Indications: 69-year-old female with persistent right leg and hip pain after a fallapproximately 2 weeks ago. The patient also has a more remote history ofsurgical repair of the right femur. Technique: 4 views of the right femur were obtained. Comparison: Images of the right hip obtained at the same time today and previous righthip x- rays dated 03/04/2020. Findings: Fixation hardware again visualized in the proximal right femur with oldhealed fracture deformity centered in the right intertrochantericregion. There is a new linear lucency extending through the lateral aspect of theright superior pubic ramus. This is also seen on today's dedicated righthip x-rays but not on the previous right hip x-rays (03/04/2020). This isconsistent with a nondisplaced acute fracture involving the right superiorpubic ramus which may be new since the recent x-rays or is now visible dueto some demineralization around the fracture line. Old healed fracturedeformity in the right inferior pubic ramus is unchanged. IMPRESSION: 1. Nondisplaced acute appearing fracture through the right superior pubicramus as described. 2. No additional acute appearing fractures visualized in the rightfemur. 3. Fixation hardware and old healed fracture deformity intertrochantericregion of the proximal right femur. 4. Old healed fracture deformity right inferior pubic ramus. Interpreted By: Ryan Montoya MD, 03/11/2020 11:34 AM Jasson Cueva MD GENERAL IMAGING Final Resul t * XR HIP RT 2V (03/11/2020 11:33 AM OPHTHALMIC TECHNICIAN APPRENTICE) Anatomical Region Laterality Modality Hip Radiographic Sharon ging 03/11/2020 11:3 6 AM OPHTHALMIC TECHNICIAN APPRENTICE Impressions 03/11/2020 11:39 AM OPHTHALMIC TECHNICIAN APPRENTICE IMPRESSION: 1) There is a fracture involving the right superior pubic ramus close to the medial aspect of the right acetabulum different than the previous radiograph. 2. Old fracture deformity involving the inferior pubic ramus. 3. In the right proximal femur no malalignment or acute bony abnormalities. Interpreted By: Kush Song MD, 03/11/2020 11:36 AM Narrative 03/11/2020 11:39 AM OPHTHALMIC TECHNICIAN APPRENTICE Examination: XR HIP RT 2V Exam time: 03/11/2020 11:20 AM Clinical history: Trauma. Persistent right hip pain. Comparison: Previous studies are from 03/04/2020. Technique: 2 views of the right femur. Findings: Again noted are postoperative changes in the right femur demonstrating a dominant male in place. Involving the right proximal femur no acute bony abnormalities. There is a fracture line across the right superior pubic ramus near the medial aspect of the right acetabulum with no significant displacement. There is also fracture deformity of the right inferior pubic ramus. Right inferior pubic ramus deformity appears chronic. Symphysis pubis shows no malalignment. The patient may benefit from further evaluation with CT scan of the pelvis and right hip to better visualize the extent of injury and fracture of the right pubic bone and the right acetabular contours. Procedure Note Kush Song MD - 03/11/2020 Examination: XR HIP RT 2V Exam time: 03/11/2020 11:20 AM Clinical history: Trauma. Persistent right hip pain. Comparison: Previous studies are from 03/04/2020. Technique: 2 views of the right femur. Findings: Again noted are postoperative changes in the right femur demonstrating a dominant male in place. Involving the right proximalfemur no acute bony abnormalities. There is a fracture line across the right superior pubic ramus near the medial aspect of the right acetabulum with no significant displacement. There is also fracture deformity of the right inferior pubic ramus.Right inferior pubic ramus deformity appears chronic. Symphysis pubis shows no malalignment. The patient may benefit from further evaluation with CT scan of thepelvis and right hip to better visualize the extent of injury and fracture ofthe right pubic bone and the right acetabular contours. IMPRESSION: 1) There is a fracture involving the right superior pubic ramus close to the medial aspect of the right acetabulum different than the previous radiograph. 2. Old fracture deformity involving the inferior pubic ramus. 3. In the right proximal femur no malalignment or acute bonyabnormalities. Interpreted By: Kush Song MD, 03/11/2020 11:36 AM Jasson Cueva MD GENERAL IMAGING Final Resul t documented in this encounter Visit Diagnoses Diagnosis Right thigh pain Pain in limb documented in this encounter Care Teams Inside Sales Account Manager Relationship Specialty Start Date End Date Jasson Cueva MD [address] [place] [phone] PCP - General FAMILY PRACTICE 11/03/18 Huber Milligan MD [address] [place] [phone] Consulting Physician Vascular Neurology 04/30/19 Norm Hopkins MD [address] [place] [phone] Consulting Physician CLINICAL CARDIAC ELECTROPHYSIOLOGY 04/30/19 documented as of this encounter
--- OUTSIDE RECORDS SUMMARY | 2024-03-19 18:40 | XMS_ITS | Encounter Summary ---
Author Organization [facility] Address [address] [place] [address]. [place], [place] [id number] [place] [id number] Care Team Providers Care Miner Pick Name Role Phone Jasson Cueva MD Primary Care Provider [phone] Huber Milligan MD Unavailable [phone] Norm Hopkins MD Unavailable [phone] Reason for Visit * Reason Comments Lab (SCAN) Encounter Details Date Type Department Care Team (Latest Contact Info) Description 01/15/2020 Scan HEALTH INFO [facility] Scanned, Documents Lab (SCAN) Social History Tobacco Use Types Packs/Day Years Used Date Smoking Tobacco: Former Cigarettes Smokeless Tobacco: Never Alcohol Use Standard Drinks/Week Comments Not Currently 0 (1 standard drink = 0.6 oz pur e alcohol) Comments No Sex and Gender Information Value Date Recorded Sex Assigned at Not on file Legal 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 us Documents Scanned SCANNING Final Result * OUTSIDE LAB (SCAN) (01/15/2020) 01/15/2020 Narrative 01/15/2020 Ordered by an unspecified provider. us Documents Scanned SCANNING Final Result documented in this encounter Visit Diagnoses Not on filedocumented in this encounter Care Teams Miner Pick Relationship Specialty Start Date End Date Jasson Cueva MD [address] [place] [phone] PCP - General FAMILY PRACTICE 11/03/18 Huber Milligan MD [address] [place] [phone] Consulting Physician Vascular Neurology 04/30/19 Norm Hopkins MD [address] [place] [address] Consulting Physician CLINICAL CARDIAC ELECTROPHYSIOLOGY 04/30/19 documented as of this encounter
--- OUTSIDE RECORDS SUMMARY | 2024-03-19 18:40 | XMS_ITS | Encounter Summary ---
Author Organization [facility] Address [address] [place] [address]. [place] [address] [place] [address] Care Team Providers Care Bindery Supervisor Name Role Phone Jasson Cueva MD Primary Care Provider [phone] Huber Milligan MD Unavailable [phone] Norm Hopkins MD Unavailable [phone] Reason for Visit * Imaging (Routine) - Closed Specialty Diagnoses / Procedures Referred By Jayce coronado Referred To Contact RADIOLOGY Diagnoses Bilateral renal masses Procedures MRI ABD WO CON MRI ABD WWO CON Chi Quintero MD [address] [place] [address] Phone: tel: fax: Referral ID Status Reason Start Date Expiration Date Visits Re quested Visits Authorized [id number] Closed 03/29/2020 04/29/2021 1 1 Encounter Details Date Type Department Care Team (Late st Contact Info) Description 04/05/2020 9:34 AM HAND SOLE SEWER - 04/05/2020 11:[address] [facility] Hospital Encounter [facility] [address] [place] [address] Chi Quintero MD [address] [place] [phone] Discharge Disposition: Home or Self Care (Routine Discharge) Social History Tobacco Use Types Packs/Day Years Used Date Smoking Tobacco: Former Cigarettes Smokeless Tobacco: Never Alcohol Use Standard Drinks/Week Comments Not Currently 0 (1 standard drink = 0.6 oz pur e alcohol) Comments No Sex and Gender Information Value Date Recorded Sex Assigned at Not on file Legal 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 HAND SOLE SEWER Gender Identity Not on file Sexual Orientation Not on file COVID-19 Exposure Response Date Recorded In the last month, have you been in contact with someone who was confirmed or suspected to have Coronavirus / COVID-19? No / Unsure 04/05/2020 9:32 AM HAND SOLE SEWER documented as of this encounter Functional Status [...] times daily. 90 tablet 11 06/23/2019 07/02/2020 meloxicam 15 MG tablet 03/25/2020 04/10/2021 metoprolol succinate ER 50 MG 24 hr tablet Take 1 tablet (50 mg total) by mouth daily. 2 11/08/2018 01/06/2023 metoprolol tartrate 50 MG tablet 01/16/2020 01/12/2021 traMADol 50 MG tablet 03/10/2020 04/10/2021 documented as of this encounter Plan of Treatment Not on file documented as of this encounter Procedures Procedure Name Priority Date/Time Associated Diagnosis Comments MRI ABD WO CON Routine 04/05/2020 11:39 AM HAND SOLE SEWER Bilateral renal masses CREATININE Routine 04/05/2020 9:45 AM HAND SOLE SEWER documented in this encounter Results * MRI ABD WO CON (04/05/2020 11:39 AM HAND SOLE SEWER) Anatomical Region Laterality Modality Abdomen Magnetic Resonan ce 04/06/2020 2:08 PM HAND SOLE SEWER Impressions 04/06/2020 2:28 PM HAND SOLE SEWER IMPRESSION: 1) Severe chronic atrophy left kidney with compensatory hypertrophy right kidney similar to previous studies. Focal areas of chronic parenchymal scarring are noted most prominently in the polar regions of the right kidney with associated dilatation of underlying calyces again unchanged. 2. Subcentimeter hemorrhagic cyst lower pole right kidney. Multiple other small benign cysts are seen in both breasts. 3. Focal area of soft tissue thickening in the midpole region of the right kidney. This has signal intensity similar to normal renal parenchyma on all sequences. This area of soft tissue thickening is also unchanged in comparison to previous CT studies dating back to 2016. This is felt to be consistent with a benign prominent column of Caleb normal variant. 4. No suspicious renal mass lesions are demonstrated. Correlation with follow-up renal ultrasound in 12 months would be recommended. Interpreted By: Simon Brock MD, 04/06/2020 2:08 PM Narrative 04/06/2020 2:28 PM HAND SOLE SEWER Examination: MRI ABD WO CON Exam time: 04/05/2020 11:39 AM Clinical history: Bilateral renal masses, chronic atrophy left kidney. Comparison: Comparison is made to previous CT studies from [facility] dated 12/17/2019 and 10/15/2015 Technique: Coronal and axial breath-hold T2 SSFSE images of the abdomen obtained along with axial breath-hold fat-suppressed T2 SSFSE images and axial T1 gradient echo breath-hold fat-suppressed images. Coronal and axial T1 gradient echo in phase/out of phase chemical shift images. Intravenous contrast was not utilized due to renal insufficiency. Findings: The images demonstrate severe chronic atrophy of the left kidney with compensatory hypertrophy of the right kidney. There are focal areas of parenchymal loss and scarring involving both kidneys most prominent in the polar regions and similar to previous study. There is a subcentimeter lesion arising from the lower pole the right kidney which demonstrates high T1 and low T2 signal consistent with a small hemorrhagic cyst. Numerous other cystic lesions are seen in both kidneys and there is dilatation of calyces deep to areas of parenchymal scarring most prominent in the upper pole region of the right kidney and very similar to previous studies. There is a focal area of relatively thickened parenchyma involving the mid pole region of the right kidney. This has signal intensity similar to normal renal parenchyma on all sequences. In addition, this focal area of pole thickening right kidney is unchanged in comparison to previous studies dating back to 2016. The appearance and lack of interval change are consistent with benign prominent column of Caleb variation. No definite suspicious renal mass lesion is demonstrated. No significant hydronephrosis. The liver is normal in size. No significant focal intrahepatic lesions are demonstrated. No evidence of cholelithiasis or biliary duct dilatation. The spleen, adrenal glands, and pancreas are unremarkable. Procedure Note Simon Brock MD - 04/06/2020 Examination: MRI ABD WO CON Exam time: 04/05/2020 11:39 AM Clinical history: Bilateral renal masses, chronic atrophy left kidney. Comparison: Comparison is made to previous CT studies from [facility] dated 12/17/2019 and 10/15/2015 Technique: Coronal and axial breath-hold T2 SSFSE images of the abdomen obtained along with axial breath-hold fat-suppressed T2 SSFSE images and axial T1 gradient echo breath-hold fat-suppressed images. Coronal andaxial T1 gradient echo in phase/out of phase chemical shift images.Intravenous contrast was not utilized due to renal insufficiency. Findings: The images demonstrate severe chronic atrophy of the leftkidney with compensatory hypertrophy of the right kidney. There are focal areasof parenchymal loss and scarring involving both kidneys most prominent inthe polar regions and similar to previous study. There is a subcentimeter lesion arising from the lower pole the right kidney which demonstrates high T1 and low T2 signal consistent with asmall hemorrhagic cyst. Numerous other cystic lesions are seen in both kidneys and there is dilatation of calyces deep to areas of parenchymal scarring most prominent in the upper pole region of the right kidney and very similar to previous studies. There is a focal area of relatively thickened parenchyma involving themid pole region of the right kidney. This has signal intensity similar to normal renal parenchyma on all sequences. In addition, this focal areaof pole thickening right kidney is unchanged in comparison to previousstudies dating back to 2016. The appearance and lack of interval change are consistent with benign prominent column of Caleb variation. No definite suspicious renal mass lesion is demonstrated. No significant hydronephrosis. The liver is normal in size. No significant focal intrahepatic lesionsare demonstrated. No evidence of cholelithiasis or biliary duct dilatation.The spleen, adrenal glands, and pancreas are unremarkable. IMPRESSION: 1) Severe chronic atrophy left kidney with compensatory hypertrophyright kidney similar to previous studies. Focal areas of chronic parenchymal scarring are noted most prominently in the polar regions of the right kidney with associated dilatation of underlying calyces again unchanged. 2. Subcentimeter hemorrhagic cyst lower pole right kidney. Multipleother small benign cysts are seen in both breasts. 3. Focal area of soft tissue thickening in the midpole region of theright kidney. This has signal intensity similar to normal renal parenchyma onall sequences. This area of soft tissue thickening is also unchanged in comparison to previous CT studies dating back to 2016. This is felt araceli consistent with a benign prominent column of Caleb normal variant. 4. No suspicious renal mass lesions are demonstrated. Correlation with follow-up renal ultrasound in 12 months would be recommended. Interpreted By: Simon Brock MD, 04/06/2020 2:08 PM Chi Quintero MD MRI Final Re sult * (ABNORMAL) CREATININE (04/05/2020 9:45 AM HAND SOLE SEWER) CREATININE S/P/B 2.30(H) 0.55 - 1.02 MG/DL 04/05/2020 10:04 AM HAND SOLE SEWER [facility] EGFR NON-AFR. AMER. 21(L) >89 ML/MIN/1. 73 M2 04/05/2020 10:04 AM HAND SOLE SEWER [facility] EGFR AFR. AMER. 24(L) >89 ML/MIN/1. 73 M2 04/05/2020 10:04 AM [facility] GFR NOTES GFR REFERENCE S: 04/05/2020 10:04 AM [facility] Comment: THE ESTIMATED GFR IS [...] ml/min/1.73 m2 G5,KIDNEY FAILURE: <15 ml/min/1.73 m2 04/05/2020 9:45 AM HAND SOLE SEWER Chi Quintero MD LABORATORY Final Re sult [facility] [address] [place] [address], documented in this encounter Visit Diagnoses Diagnosis Bilateral renal masses Unspecified disorder of kidney and ureter documented in this encounter Care Teams Bindery Supervisor Relationship Specialty Start Date End Date Jasson Cueva MD [address] [place] [phone] PCP - General FAMILY PRACTICE 11/03/18 Huber Milligan MD [address] [place] [phone] Consulting Physician Vascular Neurology 04/30/19 Norm Hopkins MD [address] [place] [phone] Consulting Physician CLINICAL CARDIAC ELECTROPHYSIOLOGY 04/30/19 documented as of this encounter
--- OUTSIDE RECORDS SUMMARY | 2024-03-19 18:40 | XMS_ITS | Encounter Summary ---
Author Organization [facility] Address [address] [place] [address]. [place] [address] [place] [address] Care Team Providers Care Director Search Name Role Phone Jasson Cueva MD Primary Care Provider [phone] Huber Milligan MD Unavailable [phone] Norm Hopkins MD Unavailable [phone] Reason for Visit * Reason Onset Date Comments Holter Monitor 05/05/2019 BG monitor jackson ed to pt today/consent obtained Other 06/24/2019 Pt invoiced for not returning BG Other 05/05/2019 BG Returned Bell mary EOS Encounter Details Date Type Department Care Team (Late st Contact Info) Description 05/05/2019 [facility] [address] [place] [phone] Norm Hopkins MD [address] [place], [place] [phone] Holter Monitor (BG monitor shipped to pt today/consent obtained); Other (Pt invoiced for not returning BG); Other (BG Returned Awaiting EOS) Social History Tobacco Use Types Packs/Day Years Used Date Smoking Tobacco: Every Day Cigarettes Smokeless Tobacco: Never Alcohol Use Standard Drinks/Week Comments Yes 0 (1 standard drink = 0.6 oz pur e alcohol) Comments No Sex and Gender Information Value Date Recorded Sex Assigned at Not on file Legal 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 CLINICAL APPLICATION MANAGER Gender Identity Not on file Sexual Orientation Not on file COVID-19 Exposure Response Date Recorded In the last month, have you been in contact with someone who was confirmed or suspected to have Coronavirus / COVID-19? No / Unsure 06/23/2019 2:24 PM CDT documented as of this encounter [...] documented in this encounter Progress Notes * Ibis Joyce MA - 08/22/2019 11:18 AM CDT BG Returned Awaiting EOS * Stuart Montoya - 06/24/2019 3:07 PM CDT Patient invoiced for not returning BG * Funmi Kirby MA - 05/05/2019 3:22 PM CST BG monitor shipped to pt today/consent obtained ICAL APPLICATION MANAGER documented in this encounter Plan of Treatment Not on file documented as of this encounter Visit Diagnoses Not on filedocumented in this encounter Care Teams Director Search Relationship Specialty Start Date End Date Jasson Cueva MD [address] [place] [phone] PCP - General FAMILY PRACTICE 11/03/18 Huber Milligan MD [address] [place] [phone] Consulting Physician Vascular Neurology 04/30/19 Norm Hopkins MD [address] [place] [address] Consulting Physician CLINICAL CARDIAC ELECTROPHYSIOLOGY 04/30/19 documented as of this encounter
--- OUTSIDE RECORDS SUMMARY | 2024-03-19 18:40 | XMS_ITS | Encounter Summary ---
Author Organization [facility] Address [address] [place] [address]. [place], [place] [id number] [place] [id number] Care Team Providers Care Intermediate Project Manager Name Role Phone Jasson Cueva MD Primary Care Provider Huber Milligan MD Unavailable [phone] Norm Hopkins MD Unavailable [phone] Reason for Referral * Imaging (Emergency) - Closed Specialty Diagnoses / Procedures Referred By Jayce t Referred To Contact RADIOLOGY Procedures CT HEAD WO CON Gabriella eRddy MD Phone: tel: fax: Referral ID Status Reason Start Date Expiration Date Visits Re quested Visits Authorized [id number] Closed 12/15/2019 01/13/2021 1 1 Reason for Visit * Reason Comments Altered Mental Status Encounter Details Date Type Department Care Team (Late st Contact Info) Description 12/15/2019 6:22 PM CDT - 12/16/2019 11:49 AM CDT Emergency [place] [facility] [place] [address] Gabriella Reddy MD [address] [place] [address] Altered Mental Status Discharge Disposition: Transfer to Acute Care Hospital Social History Tobacco Use Types Packs/Day Years Used Date Smoking Tobacco: Former Cigarettes Smokeless Tobacco: Never Alcohol Use Standard Drinks/Week Comments Not Currently 0 (1 standard drink = 0.6 oz pur e alcohol) Comments No Sex and Gender Information Value Date Recorded Sex Assigned at Not on file Legal 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 [employer] Gender Identity Not on file Sexual Orientation Not on file COVID-19 Exposure Response Date Recorded In the last month, have you been in contact with someone who was confirmed or suspected to have Coronavirus / COVID-19? No / Unsure 12/15/2019 6:21 PM CDT documented as of this encounter Last Filed Vital Signs Vital Sign Reading Time Taken Comments Blood Pressure 97/69 12/16/2019 11:30 AM CDT Pulse 84 12/16/2019 6:08 AM CDT Temperature 36.1 ??C (97 ??F) 12/16/2019 6:08 AM CDT Respiratory Rate 20 12/16/2019 11:00 AM CDT Oxygen Saturation 95% 12/16/2019 11:30 AM CDT Inhaled Oxygen Concentration - - Weight 65.3 kg (144 lb) 12/15/2019 6:29 PM CDT Height 170.2 cm (5' 7 ) 12/15/2019 6:29 PM CDT Body Mass Index 22.55 12/15/2019 6:29 PM CDT documented in this encounter Functional [...] PM JULYT Lynda Saba RN Active * Because of a physical, mental, or emotional condition, do you have difficulty doing errands alone such as visiting a doctor's office or shopping? Answer Date of Assessment Author Status No 11/26/2018 12:08 PM JULYT Lynda Saba RN Active documented as of this encounter Mental Status * Because of a physical, mental, or emotional condition, do you have serious difficulty concentrating, remembering, or making decisions? Answer Entry Date Author Status No 11/26/2018 12:08 PM CDT Lynda Saba RN Active documented in this encounter Medications at Time of Discharge aspirin EC 81 MG tablet Take 1 tablet (81 mg total) by mouth daily. amlodipine 10 MG [...] as of this encounter ED Notes * Verna Singh RN - 12/16/2019 11:49 AM CDT At 1356 pt son Zack returns call. Sand Cutter Operator advises that pt has been transferred to [facility]. * Verna Singh RN - 12/16/2019 11:30 AM CDT EMS here for transport. Report to Program Director/Morning Show Host * Verna Singh RN - 12/16/2019 11:17 AM CDT Report phoned to [facility]AN[facility] * Verna Singh RN - 12/16/2019 11:17 AM CDT Report to DANIAL Martin. * Verna Singh RN - 12/16/2019 10:49 AM CDT Received call from [facility]. Pt has been accepted. Advised to call report to [phone] Pt will be assigned to room 4607. * Angel Fisher MD - 12/16/2019 10:28 AM CDT Patient continues stable in the emergency department. She ate breakfast and vitals have remained within normal limits. I did speak with Dr. Arevalo, [facility] ICU,who was agreed to accept the patient for transfer. Please refer to Dr. Reddy's note regarding this patient. Angel Fisher MD 12/16/19 1029 * Verna Singh RN - 12/16/2019 10:22 AM CDT Leather Drier calls from [facility]. Speaks with Dr Fisher. Pt accepted. * Minnie Almonte CNA - 12/16/2019 9:30 AM CDT Pt. Is sitting up in a chair eating breakfast. * Verna Singh RN - 12/16/2019 8:55 AM CDT Called to [facility], they have no ICU beds. * Verna Singh RN - 12/16/2019 8:53 AM CDT Called to [facility], they do not have any ICU beds. * Verna Singh RN - 12/16/2019 8:48 AM CDT Call to [facility] transfer line - advised pt and son agreeable for transfer to [facility]. Call Center will initiate arrangements. * Verna Singh RN - 12/16/2019 8:46 AM CDT Call to [facility] to inquire if ICU bed available. Per charge nurse no beds at this time. * Verna Singh RN - 12/16/2019 8:45 AM CDT Sand Cutter Operator speaks with pt sonZack. Zack agrees with transfer to [facility]. * Verna Singh RN - 12/16/2019 8:42 AM CDT Called to [place], [place] - They do not have ICU beds. Advised that [facility] may have one. Sand Cutter Operator inquires with pt if she would mind being transferred to [facility]. Pt ask ad writer to discuss with her son. * Verna Singh RN - 12/16/2019 8:34 AM CDT Called to [facility] - No ICU beds * Suzy Marin RN - 12/15/2019 6:31 PM CDT To ED per wheelchair. Son states pt was out of it last noc, it was late and thought it could be just the time of noc. Son stopped to see patient again today and she was still off son states pt was incontinent of urine this morning, she is weak and has some confusion. Pt did not know month, thought she was at [facility]. Denies any pain * Gabriella Reddy MD - 12/15/2019 6:22 PM CDT eMERGENCY dEPARTMENT eNCOUnter CHIEF COMPLAINT Chief Complaint Patient presents with ??? Altered Mental Status HPI HPI Alayna Lawrence is a 69-year-old female who presents to the ER with a complaint of confusion per son. Patient states she is not sure why she is here but her son states that for the last 24 hours he has noticed that she has been quite confused much more than normal. At first he thought it was because she he had just woken up out of sleep but her symptoms have persisted all day. She has been exceedingly weak and also was incontinent of urine. No fevers chills cough abdominal pain vomiting sick contacts or other complaints. No focal weakness. He states he does not think she has been eating and drinking much either. She lives by herself but he does check on her several times a week. ALLERGIES No Known Allergies CURRENT MEDICATIONS Current Outpatient Medications Medication Sig ??? amlodipine 10 MG tablet Take 10 mg by mouth daily. ??? aspirin EC 81 MG tablet Take 81 mg by mouth daily. ??? gabapentin 600 MG tablet Take 1 tablet (600 mg total) by mouth 3 (three) times daily. ??? metoprolol succinate ER 50 MG 24 hr tablet Take 50 mg by mouth daily. PAST MEDICAL HISTORY Past [...] file Occupational History ??? Not on file Social Needs ??? Financial resource strain: Not on file ??? Food insecurity: Worry: Not on file Inability: Not on file ??? Transportation needs: Medical: Not on file Non-medical: Not on file Tobacco Use ??? Smoking status: Former Smoker Packs/day: 1.00 Types: Cigarettes ??? Smokeless tobacco: Never Used Substance and Sexual Activity ??? Alcohol use: Not Currently ??? Drug use: No ??? Sexual activity: Not on file Lifestyle ??? Physical activity: Days per week: Not on file Minutes per session: Not on file ??? Stress: Not on file Relationships ??? Social connections: Talks on phone: Not on file Gets together: Not on file Attends caodaism service: Not on file Active member of club or organization: Not on file Attends meetings of clubs or organizations: Not on file Relationship status: Not on file ??? Intimate partner violence: Fear of current or ex partner: Not on file Emotionally abused: Not on file Physically abused: Not on file Forced sexual activity: Not on file Other Topics Concern ??? Exercise Not Asked ??? Special Diet Not Asked ??? Caffeine Concern Not Asked Social History Narrative ??? Not on file FAMILY HISTORY Family History Problem Relation Name Age of Onset ??? Heart Attack Mother REVIEW OF SYSTEMS Review of Systems All other ROS negative unless noted above in HPI. PHYSICAL EXAM Physical Exam Filed Vitals: 12/15/19 2145 12/15/19 2219 12/16/19 0608 12/16/19 0610 BP: 130/85 121/81 Pulse: 84 Resp: Temp: 97.7 ??F (36.5 ??C) 97 ??F (36.1 ??C) TempSrc: Temporal Temporal SpO2: 97% 94% Weight: Height: The patient is a well developed and well nourished adult female in no distress, alert but not oriented HEENT: PERRL, EOMI Nose without drainage Ears unremarkable Throat without lesions, mucous membranes dry NECK: Supple without adenopathy or rigidity CHEST: Lungs clear and equal to auscultation Heart regular rate and rhythm without murmur ABD: Soft, NABS, non tender EXT: No clubbing, cyanosis, edema NEURO: CN II-XII intact, no focal weakness but mild decreased strength in all 4 extremities SKIN: No rash or significant lesions EKG EKG shows sinus tachycardia without ischemic changes RADIOLOGY XR CHEST PORTABLE Final Result by User, [id number] (12/14 1944) Examination: Chest x-ray 1 view Exam time: 12/15/2019 7:41 PM Clinical history: dyspnea altered mental status . Comparison: December 09, 2018 Technique: Upright AP view of the chest demonstrated. Findings: Normal size heart. No vascular congestion. Electronic device noted at the cardiac apex possibly and event monitor. No acute infiltrate. No pleural effusion. Senescent change dorsal spine and cardiovascular structures. Right shoulder arthroplasty unchanged. IMPRESSION: No acute findings. Interpreted By: Nolvia Drake MD, 12/15/2019 7:[address] HEAD WO CON Final Result by User, [id number] (12/15 1939) CT HEAD WO CON: DATE: 12/15/2019 6:42 PM CLINICAL HISTORY:: Confusion/delirium, altered LOC, unexplained altered mental status. COMPARISON: 12/09/2018 TECHNIQUE: CT examination of the head was performed with axial images and additional reconstructions as needed without intravenous contrast. A dose lowering technique was used for this procedure, which may include, but is not limited to, dose reduction technique, automated exposure control, the use of iterative reconstruction, and ALARA (As Low As Reasonably Achievable) / Image Gently techniques. FINDINGS: Brain:There is extensive bilateral basal ganglion calcification particularly the left caudate nucleus. Findings are similar to the previous exam. Diffuse cortical atrophy is noted more focal in the frontal lobes and extensive white matter hypoattenuation consistent with chronic small vessel white matter ischemic change. There is no evidence of any acute intracranial hemorrhage. No shift of midline structures no mass effect. . Ventricles:Ventricles normal in size and position.. Orbits:The orbits are unremarkable. Sinuses:The visualized sinuses appear within normal limits. Mastoids: No evidence of mastoid effusion. Bones: No evidence of fracture or osseous destructive lesion.. IMPRESSION: Asymmetric prominent basal ganglion calcification severe on the left similar to previous exam. No acute intracranial hemorrhage. Cortical atrophy and chronic white matter microangiopathic changes. Interpreted By: Nolvia Drake MD, 12/15/2019 7:28 PM LABS Results for orders placed or performed during the hospital encounter of 12/15/19 CBC W/DIFF AUTOMATED Result Value Ref Range WBC 20.8 (H) 4.5 - 10.8 x10'3/uL RBC 5.92 (H) 4.10 - 5.40 x10'6/uL HGB 18.4 (H) 12.0 - 16.0 G/DL HCT 57.4 (H) 36.0 - 47.0 % MCV 97.0 78.0 - 100.0 FL MCH 31.1 (H) 27.0 - 31.0 PG MCHC 32.1 (L) 33.0 - 36.0 G/DL RDW 14.5 11.5 - 14.5 % PLT 233 150 - 350 x10'3/uL MPV 11.4 (H) 7.4 - 10.4 FL Differential Comment NORMAL REFERENCE RANGE NOT ESTABLISHED FOR THE PROPORTIONAL LEUKOCYTE DIFFERENTIAL. SEG NEUTROPHILS 82.4 % LYMPHOCYTES 9.5 % MONOCYTES 6.8 % EOSINOPHILS 0.2 % BASOPHILS 0.7 % IMMATURE GRANS 0.4 % NRBC 0.0 % ABS. NEUTROPHILS 17.09 (H) 1.60 - 8.30 x10'3/uL ABS. LYMPHOCYTES 1.98 0.80 - 4.70 x10'3/uL ABS. MONOCYTES 1.42 0.00 - 1.50 x10'3/uL ABS. EOSINOPHILS 0.04 0.00 - 0.40 x10'3/uL ABS. BASOPHILS 0.15 0.00 - 0.20 x10'3/uL ABS. IMMATURE GRANULOCYTES 0.08 (H) 0.00 - 0.03 x10'3/uL ABS. NUCLEATED RBC'S 0.00 0.00 x10'3/uL COMPREHENSIVE METABOLIC PANEL Result Value Ref Range SODIUM 161 (HH) 136 - 145 MMOL/L POTASSIUM 5.0 3.5 - 5.1 MMOL/L CHLORIDE S/P/B 123 (H) 98 - 107 MMOL/L CO2 17.0 (L) 21.0 - 32.0 MMOL/L GLUCOSE 186 (H) 70 - 99 MG/DL BUN 150 (H) 6 - 24 MG/DL CREATININE S/P/B 8.06 (H) 0.55 - 1.02 MG/DL CALCIUM 9.9 8.4 - 10.5 MG/DL BILIRUBIN TOTAL S/P/B 1.0 0.2 - 1.0 MG/DL ALKALINE PHOSPHATASE S/P/B 107 55 - 142 U/L AST 26 15 - 37 U/L ALT 25 14 - 59 U/L TOTAL PROTEIN S/P/B 8.8 (H) 6.4 - 8.2 G/DL ALBUMIN S/P/B 4.3 3.4 - 5.0 G/DL ANION GAP 21.0 (H) 5.0 - 15.0 MMOL/L OSMOLALITY (CALC) 386 MOSM/KG eGFR Non-Afr. Amer. 5 (L) >89 ML/MIN/1.73 M2 eGFR Afr. Amer. 5 (L) >89 ML/MIN/1.73 M2 GFR NOTES GFR REFERENCES: LACTIC ACID Result Value Ref Range LACTIC ACID 2.3 (H) 0.4 - 2.0 MMOL/L LACTIC ACID Result Value Ref Range LACTIC ACID 3.2 (H) 0.4 - 2.0 MMOL/L LACTIC ACID Result Value Ref Range LACTIC ACID 1.7 0.4 - 2.0 MMOL/L URINALYSIS WI REFLEX TO CULTURE Result Value Ref Range COLOR (U) YELLOW TRANSPARENCY TURBID Specific [place] (U) 1.025 1.000 - 1.025 U PH 8.5 (H) 5.0 - 8.0 LEUKOCYTE ESTERASE 3+ (A) NEGATIVE NITRITES NEGATIVE NEGATIVE PROTEIN (U) 3+ (A) NEGATIVE URINE GLUCOSE NEGATIVE NEGATIVE U KETONES NEGATIVE NEGATIVE UROBILINOGEN 0.2 <1.0 EU/DL BLOOD 2+ (A) NEGATIVE WBC/HPF FILLED FIELD (A) 0 - 5 /HPF RBC/HPF 10-20 (A) 0 - 5 /HPF EPI/HPF MODERATE /LPF BACTERIA (URINE) 4+ /HPF BILIRUBIN (U) NEGATIVE NEGATIVE CULTURE & SENSITIVITY INDICATED? SPECIMEN SETUP FOR CULTURE BASIC METABOLIC PANEL Result Value Ref Range SODIUM 160 (HH) 136 - 145 MMOL/L POTASSIUM 4.7 3.5 - 5.1 MMOL/L CHLORIDE S/P/B 128 (H) 98 - 107 MMOL/L CO2 13.3 (L) 21.0 - 32.0 MMOL/L GLUCOSE 104 (H) 70 - 99 MG/DL BUN 141 (H) 6 - 24 MG/DL CREATININE S/P/B 6.57 (H) 0.55 - 1.02 MG/DL CALCIUM 8.5 8.4 - 10.5 MG/DL ANION GAP 18.7 (H) 5.0 - 15.0 MMOL/L OSMOLALITY (CALC) 376 MOSM/KG eGFR Non-Afr. Amer. 6 (L) >89 ML/MIN/1.73 M2 eGFR Afr. Amer. 7 (L) >89 ML/MIN/1.73 M2 GFR NOTES GFR REFERENCES: CULTURE, BACTERIA, BLOOD Result Value Ref Range Spec. Description BLOOD Special Requests: NO SPECIAL REQUEST Gram Stain Result GRAM POSITIVE RODS Gram Stain Result CRITICAL VALUE CALLED TO DR REDDY 12/16/19 0540 R and V Culture Result: GRAM POSITIVE RODS (AA) CULTURE, BACTERIA, BLOOD Result Value Ref Range Spec. Description BLOOD Special Requests: NO SPECIAL REQUEST Gram Stain Result GRAM POSITIVE RODS Gram Stain Result CRITICAL VALUE CALLED TO DR REDDY 12/16/19 0540 R and V Culture Result: GRAM POSITIVE RODS (AA) ED MEDICATIONS Medications sodium chloride 0.45% infusion ( Intravenous Infusion Stop Time 12/16/19 0600) cefTRIAXone (ROCEPHIN) 1 g in sodium chloride 0.9 % 50 mL IVPB (has no administration in time range) sodium chloride 0.9% bolus infusion SOLN 1,000 mL (0 mLs Intravenous Infusion Stop Time 12/15/192052) cefTRIAXone (ROCEPHIN) 1 g in sodium chloride 0.9 % 50 mL IVPB (0 g Intravenous Infusion Stop Time 12/15/192121) dextrose 5 %-sodium chloride 0.45 % infusion ( Intravenous New Bag 12/16/19626) PROCEDURES Procedures CONSULTS: ED COURSE & MEDICAL DECISION MAKING [facility] ED Course as of Dec 16 631 Mon Dec 15, 2019 2114 I have made calls to [facility] in [place], [facility] in [place], [facility], [facility] in [place], and [facility] in [place] and none of those facilities have availability now to care for this patient. Patient is on the waiting list at [facility] in [place] and therefore we will continue to keep her in our emergency department pending bed availability at that institution. [WM] Tue Dec 16, 2019 0612 Patient is remained hemodynamically stable. Repeat laboratory studies show improvement generally with sodium slightly lower and BUN/creatinine are lower. Lactic acid is lower. Potassium is also lower. A repeat call was made to [facility] in [place]. [WM] 06 I reached out to [facility] in [place] again and the hospitalist has reviewed the record and feels the patient still needs ICU care which is still not possible at this time because there is no ICU bed available. I did explain to the patient remains hemodynamically stable and that her laboratory results are improving. Since my shift will be ending at 7 AM the case will have to be endorsednow to the next emergency physician. Please see the chart for final results and disposition. [WM] ED Course User Index [WM] Gabriella Reddy MD Patient's laboratory work-up shows severe dehydration with acute kidney injury also sepsis with urinary tract infection as a likely source. She is remained hemodynamically stable and we do not have nephrology available at our institution. The case was discussed with Dr. Honorio Hill hot pond operator [facility] and he recommends transfer to tertiary care facility for that reason. FINAL IMPRESSION SNOMED CT(R) 1. Severe dehydration SEVERE DEHYDRATION 2. Acute renal failure (ARF) (CMS/HCC) ACUTE RENAL FAILURE SYNDROME 3. UTI (urinary tract infection) URINARY TRACT INFECTIOUS DISEASE 4. Sepsis (CMS/[facility]) SEPSIS No follow-up provider specified. New Prescriptions No medications on file Gabriella Reddy MD 12/16/19 0632 Gabriella Reddy MD 12/16/19 0632 documented in this encounter Plan of Treatment Not on file documented as of this encounter Procedures Procedure Name Priority Date/Time Associated Diagnosis Comments BASIC METABOLIC PANEL STAT 12/16/2019 5:05 AM CDT LACTIC ACID STAT 12/15/2019 10:41 PM CDT LACTIC ACID STAT 12/15/2019 9:05 PM CDT URINALYSIS WI REFLEX TO CULTURE STAT 12/15/2019 7:52 PM CDT URINE BACTERIA CULTURE Routine 0 7:52 PM CDT XR CHEST PORTABLE STAT 12/15/2019 7:[address] HEAD WO CON STAT 12/15/2019 7:40 PM CDT COMPREHENSIVE METABOLIC PANEL STAT 12/15/2019 6:55 PM CDT LACTIC ACID STAT 12/15/2019 6:55 PM CDT CULTURE, BACTERIA, BLOOD Routine 12/15/2019 6:55 PM CDT CBC W/DIFF AUTOMATED STAT 12/15/2019 6:55 PM CDT ECG 12-LEAD Routine 12/15/2019 6:48 PM CDT CULTURE, BACTERIA, BLOOD Routine 12/15/2019 6:45 PM CDT documented in this encounter Results * (ABNORMAL) BASIC METABOLIC PANEL (12/16/2019 5:05 AM CDT) [facility] SODIUM S/P/B 160(HH) 136 - 145 MMOL/L 12/16/2019 5:26 AM CDT [facility] Comment:CRITICAL VALUE [place] D TO DR REDDY 0525 R and V POTASSIUM S/P/B 4.7 3.5 - 5.1 MMOL/L 12/16/2019 5:26 AM CDT [facility] CHLORIDE S/P/B 128(H) 98 - 107 MMOL/L 12/16/2019 5:26 AM CDT [facility] CO2 13.3(L) 21.0 - 32.0 MMOL/L 12/16/2019 5:26 AM CDT [facility] GLUCOSE 104(H) 70 - 99 MG/DL 12/16/2019 5:26 AM CDT [facility] Comment: FASTING GLUCOSE 100 TO 125 MG/DL IS CONSISTENT WITH IMPAIRED FASTING GLUCOSE. FASTING GLUCOSE >125 MG/DL IS CONSISTENT WITH DIABETES. RANDOM GLUCOSE >200 MG/DL WITH HYPERGLYCEMIC SYMPTOMS IS CONSISTENT WITH DIABETES. PER ADA GUIDELINES BUN 141(H) 6 - 24 MG/DL 12/16/2019 5:26 AM CDT [facility] CREATININE S/P/B 6.57(H) 0.55 - 1.02 MG/DL 12/16/2019 5:26 AM CDT [facility] CALCIUM S/P/B 8.5 8.4 - 10.5 MG/DL 12/16/2019 5:26 AM CDT [facility] ANION GAP 18.7(H) 5.0 - 15.0 MMOL/L 12/16/2019 5:26 AM CDT [facility] OSMOLALITY (CALC) 376 MOSM/KG 020 5:26 AM CDT [facility] Comment:REFERENCE RANGE NOT ESTABLISHED EGFR NON-AFR. AMER. 6(L) >89 ML/MIN/1. 73 M2 12/16/2019 5:26 AM CDT [facility] EGFR AFR. AMER. 7(L) >89 ML/MIN/1. 73 M2 12/16/2019 5:26 AM CDT [facility] GFR NOTES GFR REFERENCE S: 12/16/2019 5:26 AM CDT [facility] Comment: THE ESTIMATED GFR IS [...] ml/min/1.73 m2 G5,KIDNEY FAILURE: <15 ml/min/1.73 m2 12/16/2019 5:05 AM CDT us Gabriella Reddy MD LABORATORY Final Result [facility] [address] [place] [address], * LACTIC ACID (12/15/2019 10:41 PM CDT) LACTIC ACID VENOUS 1.7 0.4 - 2.0 MMOL/L 12/15/2019 11:05 PM CDT [facility] 12/15/2019 10:4 1 PM CDT us Gabriella Reddy MD LABORATORY Final Result Performing Organization Address City/[facility]/ZIP Co de Phone Number [facility] [address] [place], [place] [id number], * (ABNORMAL) LACTIC ACID (12/15/2019 9:05 PM CDT) LACTIC ACID VENOUS 3.2(H) 0.4 - 2.0 MMOL/L 12/15/2019 9:30 PM CDT [facility] Comment: AN ORDER FOR A REPEAT LACTIC ACID TEST IS REQUIRED WITHIN 6 HOURS OF DIAGNOSIS ON A PATIENT WITH SEVERE SEPSIS. 12/15/2019 9:05 PM CDT us Gabriella Reddy MD LABORATORY Final Result Performing Organization Address [facility] Co de Phone Number [facility] [address] [place] [address], * CULTURE URINE (12/15/2019 7:52 PM CDT) SPEC DESCRIPTION URINE STRAIGHT CATH 12/15/2019 7:57 PM CDT [facility] SPECIAL REQUESTS NO SPECIAL REQUEST 12/15/2019 7:57 PM CDT [facility] CULTURE RESULT >100,000 CFU/mL ESCHERICHIA COLI 12/18/2019 2:[address] [facility] URINE SPECIMEN OBTAINED BY SINGLE CATHETERIZATION OF URINARY BLADDER / Unknown 12/15/2019 7:52 PM CDT 12/15/2019 7:57 PM CDT Narrative Organism Antibiotic Method Susceptibility Escherichia coli AMPICILLIN HOLLY (VITEK) Sensitive Escherichia coli AMOXICILLIN/CLAVULANIC A HOLLY (VITEK) Sensitive [...] (VITEK) Sensitive Escherichia coli LEVOFLOXACIN HOLLY (VITEK) Sensitive Escherichia coli MEROPENEM HOLLY (VITEK) Sensitive Escherichia coli PIPRACIL/TAZO HOLLY (VITEK) Sensitive Escherichia coli TRIMETH-SULFAMETH. HOLLY (VITEK) Sensitive Escherichia coli TETRACYCLINE HOLLY (VITEK) Sensitive us Gabriella Reddy MD MICROBIOLOGY - GENERAL ORDERA BLES Final Result [facility] [address] [place] [address], [place] [phone] [id number] [facility] [address] [place] [address], * (ABNORMAL) URINALYSIS WI REFLEX TO CULTURE (12/15/2019 7:52 PM CDT) COLOR (U) YELLOW 12/15/2019 8:05 PM CDT [facility] TRANSPARENCY TURBID 12/15/2019 8:05 PM CDT [facility] SPECIFIC GRAVITY (U) 1.025 1.000 - 1.025 12/15/2019 8:05 PM CDT [facility] U PH 8.5(H) 5.0 - 8.0 12/15/2019 8:05 PM CDT [facility] LEUKOCYTES (U) 3+(A) NEGATIVE 12/15/2019 8:05 PM CDT [facility] NITRITES NEGATIVE NEGATIVE 12/15/2019 8:05 PM CDT [facility] PROTEIN (U) 3+(A) NEGATIVE 12/15/2019 8:05 PM CDT [facility] URINE GLUCOSE NEGATIVE NEGATIVE 12/15/2019 8:05 PM CDT [facility] KETONES MG/DL (U) NEGATIVE NEGATIVE 12/15/2019 8:05 PM CDT [facility] UROBILINOGEN 0.2 <1.0 EU/DL 12/15/2019 8:05 PM CDT [facility] BLOOD (U) 2+(A) NEGATIVE 12/15/2019 8:05 PM CDT [facility] WBC/HPF FILLED FIELD(A) 0 - 5 /HPF 12/15/2019 8:05 PM CDT [facility] RBC/HPF 10-20(A) 0 - 5 /HPF 12/15/2019 8:05 PM CDT [facility] EPI/HPF MODERATE /LPF 12/15/2019 8:05 PM CDT [facility] BACTERIA (U) 4+ /HPF 12/15/2019 8:05 PM CDT [facility] BILIRUBIN (U) NEGATIVE NEGATIVE 12/15/2019 8:05 PM CDT [facility] CULTURE & SENSITIVITY INDICATED? SPECIMEN SETUP FOR CULTURE 12/15/2019 8:05 PM CDT [facility] URINE SPECIMEN OBTAINED VIA INDWELLING URINARY CATHETER / Unknown 12/15/2019 7:52 PM CDT us Gabriella Reddy MD URINE ORDERABLES Final Result [facility] [address] [place] [id number], * XR CHEST PORTABLE (12/15/2019 7:41 PM CDT) Anatomical Region Laterality Modality Chest Radiographic Sharon ging 12/15/2019 7:42 PM CDT Impressions 12/15/2019 7:44 PM CDT IMPRESSION: No acute findings. Interpreted By: Nolvia Drake MD, 12/15/2019 7:42 PM Narrative 12/15/2019 7:44 PM CDT Examination: Chest x-ray 1 view Exam time: 12/15/2019 7:41 PM Clinical history: dyspnea altered mental status . Comparison: December 09, 2018 Technique: Upright AP view of the chest demonstrated. Findings: ?? Normal size heart. ??No vascular congestion. ??Electronic device noted at the cardiac apex possibly and event monitor. No acute infiltrate. No pleural effusion. Senescent change dorsal spine and cardiovascular structures. Right shoulder arthroplasty unchanged. Procedure Note Nolvia Drake MD - 12/15/2019 Examination: Chest x-ray 1 view Exam time: 12/15/2019 7:41 PM Clinical history: dyspnea altered mental status . Comparison: December 09, 2018 Technique: Upright AP view of the chest demonstrated. Findings: Normal size heart. No vascular congestion. Electronic device noted atthe cardiac apex possibly and event monitor. No acute infiltrate. No pleural effusion. Senescent change dorsal spine and cardiovascular structures. Right shoulder arthroplasty unchanged. IMPRESSION: No acute findings. Interpreted By: Nolvia Drake MD, 12/15/2019 7:42 PM Gabriella Reddy MD GENERAL IMAGING Final Result * CT HEAD WO CON (12/15/2019 7:40 PM CDT) Anatomical Region Laterality Modality Head Computed Tomogra phy 12/15/2019 7:28 PM CDT Impressions 12/15/2019 7:34 PM CDT IMPRESSION: Asymmetric prominent basal ganglion calcification severe on the left similar to previous exam. No acute intracranial hemorrhage. Cortical atrophy and chronic white matter microangiopathic changes. Interpreted By: Nolvia Drake MD, 12/15/2019 7:28 PM Narrative 12/15/2019 7:[address] HEAD WO CON: DATE: 12/15/2019 6:42 PM CLINICAL HISTORY:: Confusion/delirium, altered LOC, unexplained altered mental status. COMPARISON: 12/09/2018 TECHNIQUE: CT examination of the head was performed with axial images and additional reconstructions as needed without intravenous contrast. A dose lowering technique was used for this procedure, which may include, but is not limited to, dose reduction technique, automated exposure control, the use of iterative reconstruction, and ALARA (As Low As Reasonably Achievable) / Image Gently techniques. FINDINGS: Brain:There is extensive bilateral basal ganglion calcification particularly the left caudate nucleus. ??Findings are similar to the previous exam. ??Diffuse cortical atrophy is noted more focal in the frontal lobes and extensive white matter hypoattenuation consistent with chronic small vessel white matter ischemic change. ??There is no evidence of any acute intracranial hemorrhage. ??No shift of midline structures no mass effect. . Ventricles:Ventricles normal in size and position.. Orbits:The orbits are unremarkable. Sinuses:The visualized sinuses appear within normal limits. Mastoids: No evidence of mastoid effusion. Bones: No evidence of fracture or osseous destructive lesion.. Procedure Note Nolvia Drake MD - 12/15/2019 CT HEAD WO CON: DATE: 12/15/2019 6:42 PM CLINICAL HISTORY:: Confusion/delirium, altered LOC, unexplained alteredmental status. COMPARISON: 12/09/2018 TECHNIQUE: CT examination of the head was performed with axial images andadditional reconstructions as needed without intravenous contrast. A doselowering technique was used for this procedure, which may include, but isnot limited to, dose reduction technique, automated exposure control, theuse of iterative reconstruction, and ALARA (As Low As ReasonablyAchievable) / Image Gently techniques. FINDINGS: Brain:There is extensive bilateral basal ganglion calcificationparticularly the left caudate nucleus. Findings are similar to theprevious exam. Diffuse cortical atrophy is noted more focal in thefrontal lobes and extensive white matter hypoattenuation consistent withchronic small vessel white matter ischemic change. There is no evidenceof any acute intracranial hemorrhage. No shift of midline structures nomass effect. . Ventricles:Ventricles normal in size and position.. Orbits:The orbits are unremarkable. Sinuses:The visualized sinuses appear within normal limits. Mastoids: No evidence of mastoid effusion. Bones: No evidence of fracture or osseous destructive lesion.. IMPRESSION: Asymmetric prominent basal ganglion calcification severe on the leftsimilar to previous exam. No acute intracranial hemorrhage. Cortical atrophy and chronic white matter microangiopathic changes. Interpreted By: Nolvia Drake MD, 12/15/2019 7:28 PM us Gabriella Reddy MD CT Final Result * (ABNORMAL) CULTURE, BACTERIA, BLOOD (12/15/2019 6:55 PM CDT) SPEC DESCRIPTION BLOOD 12/15/2019 6:41 PM CDT [facility] SPECIAL REQUESTS NO SPECIAL REQUEST 12/15/2019 6:41 PM CDT [facility] GRAM STAIN RESULT GRAM POSITIVE RODS 12/16/2019 5:21 AM CDT [facility] GRAM STAIN RESULT CRITICAL VALUE CALLED TO DR REDDY 12/16/19 0540 R and V 12/16/2019 5:21 AM CDT [facility] CULTURE RESULT IN AEROBIC AND ANAEROBIC BLOOD CULTURE BACILLUS SPECIES NOT ANTHRACIS (AA) 12/16/2019 9:[address] [facility] BLOOD SPECIMEN OBTAINED FOR BLOOD CULTURE / Unknown 12/15/2019 6:55 PM CDT 12/15/2019 7:00 PM CDT us Gabriella Reddy MD MICROBIOLOGY - GENERAL ORDERA BLES Final Result [facility] [address] [place] [address], [place] [phone] [facility] [address] [place] [id number], * (ABNORMAL) LACTIC ACID (12/15/2019 6:55 PM CDT) LACTIC ACID VENOUS 2.3(H) 0.4 - 2.0 MMOL/L 12/15/2019 7:25 PM CDT [facility] Comment: AN ORDER FOR A REPEAT LACTIC ACID TEST IS REQUIRED WITHIN 6 HOURS OF DIAGNOSIS ON A PATIENT WITH SEVERE SEPSIS. 12/15/2019 6:55 PM CDT us Gabriella Reddy MD LABORATORY Final Result Performing Organization Address City/[facility]/ZIP Co de Phone Number [facility] [address] [place], [place] [id number] [place] [id number] [phone] * (ABNORMAL) COMPREHENSIVE METABOLIC PANEL (12/15/2019 6:55 PM CDT) SODIUM S/P/B 161(HH) 136 - 145 MMOL/L 12/15/2019 7:24 PM CDT [facility] Comment: CRITICAL VALUE CALLED TO GEOFF AT 1915 READ BACK AND VERIFIED RESULT CHECKED POTASSIUM S/P/B 5.0 3.5 - 5.1 MMOL/L 12/15/2019 7:24 PM CDT [facility] CHLORIDE S/P/B 123(H) 98 - 107 MMOL/L 12/15/2019 7:24 PM CDT [facility] CO2 17.0(L) 21.0 - 32.0 MMOL/L 12/15/2019 7:24 PM CDT [facility] GLUCOSE 186(H) 70 - 99 MG/DL 12/15/2019 7:24 PM CDT [facility] Comment: FASTING GLUCOSE 100 TO 125 MG/DL IS CONSISTENT WITH IMPAIRED FASTING GLUCOSE. FASTING GLUCOSE >125 MG/DL IS CONSISTENT WITH DIABETES. RANDOM GLUCOSE >200 MG/DL WITH HYPERGLYCEMIC SYMPTOMS IS CONSISTENT WITH DIABETES. PER ADA GUIDELINES BUN 150(H) 6 - 24 MG/DL 12/15/2019 7:24 PM CDT [facility] CREATININE S/P/B 8.06(H) 0.55 - 1.02 MG/DL 12/15/2019 7:24 PM CDT [facility] CALCIUM S/P/B 9.9 8.4 - 10.5 MG/DL 12/15/2019 7:24 PM CDT [facility] BILIRUBIN TOTAL S/P/B 1.0 0.2 - 1.0 MG/DL 12/15/2019 7:24 PM CDT [facility] Comment: THIS ASSAY IS NOT RECOMMENDED FOR PATIENTS UNDERGOING TREATMENT WITH ELTROMBOPAG DUE TO THE POTENTIAL FOR FALSELY ELEVATED RESULTS. ALKALINE PHOSPHATASE S/P/B 107 55 - 142 U/L 12/15/2019 7:24 PM CDT [facility] AST 26 15 - 37 U/L 12/15/2019 7:24 PM CDT [facility] ALT 25 14 - 59 U/L 12/15/2019 7:24 PM CDT [facility] TOTAL PROTEIN S/P/B 8.8(H) 6.4 - 8.2 G/DL 12/15/2019 7:24 PM T [facility] ALBUMIN S/P/B 4.3 3.4 - 5.0 G/DL 12/15/2019 7:24 PM T [facility] ANION GAP 21.0(H) 5.0 - 15.0 MMOL/L 12/15/2019 7:24 PM T [facility] OSMOLALITY (CALC) 386 MOSM/KG 020 7:24 PM T [facility] Comment:REFERENCE RANGE NOT ESTABLISHED EGFR NON-AFR. AMER. 5(L) >89 ML/MIN/1. 73 M2 12/15/2019 7:24 PM T [facility] EGFR AFR. AMER. 5(L) >89 ML/MIN/1. 73 M2 12/15/2019 7:24 PM T [facility] GFR NOTES GFR REFERENCE S: 12/15/2019 7:24 PM [facility] Comment: THE ESTIMATED GFR [...] ml/min/1.73 m2 G5,KIDNEY FAILURE: <15 ml/min/1.73 m2 12/15/2019 6:55 PM CDT us Gabriella Reddy MD LABORATORY Final Result [facility] [address] [place] [address], * (ABNORMAL) CBC W/DIFF AUTOMATED (12/15/2019 6:55 PM CDT) WBC 20.8(H) 4.5 - 10.8 x10'3/uL 12/15/2019 7:08 PM CDT [facility] RBC 5.92(H) 4.10 - 5.40 x10'6/uL 12/15/2019 7:08 PM CDT [facility] HGB 18.4(H) 12.0 - 16.0 G/DL 12/15/2019 7:08 PM CDT [facility] HCT 57.4(H) 36.0 - 47.0 % 12/15/2019 7:08 PM CDT [facility] MCV 97.0 78.0 - 100.0 FL 12/15/2019 7:08 PM CDT [facility] MCH 31.1(H) 27.0 - 31.0 PG 12/15/2019 7:08 PM CDT [facility] MCHC 32.1(L) 33.0 - 36.0 G/DL 12/15/2019 7:08 PM CDT [facility] RDW 14.5 11.5 - 14.5 % 12/15/2019 7:08 PM CDT [facility] PLT 233 150 - 350 x10'3/uL 12/15/2019 7:08 PM CDT [facility] MPV 11.4(H) 7.4 - 10.4 FL 12/15/2019 7:08 PM CDT [facility] DIFFERENTIAL COMMENT NORMAL REFERENCE RANGE NOT ESTABLISHED FOR THE PROPORTIONAL LEUKOCYTE DIFFERENTIAL. 12/15/2019 7:08 PM CDT [facility] SEG NEUTROPHILS 82.4 % 0 7:08 PM CDT [facility] LYMPHOCYTES 9.5 % 12/15/2019 7:08 PM CDT [facility] MONOCYTES 6.8 % 12/15/2019 7:08 PM CDT [facility] EOSINOPHILS 0.2 % 12/15/2019 7:08 PM CDT [facility] BASOPHILS 0.7 % 12/15/2019 7:08 PM CDT [facility] IMMATURE GRANS % 0.4 % 12/15/19 20 7:08 PM CDT [facility] NRBC 0.0 % 12/15/2019 7:08 PM CDT [facility] ABS. NEUTROPHILS 17.09(H) 1.60 - 8.30 x10'3/uL 12/15/2019 7:08 PM CDT [facility] ABS. LYMPHOCYTES 1.98 0.80 - 4.70 x10'3/uL 12/15/2019 7:08 PM CDT [facility] ABS. MONOCYTES 1.42 0.00 - 1.50 x10'3/uL 12/15/2019 7:08 PM CDT [facility] ABS. EOSINOPHILS 0.04 0.00 - 0.40 x10'3/uL 12/15/2019 7:08 PM CDT [facility] ABS. BASOPHILS 0.15 0.00 - 0.20 x10'3/uL 12/15/2019 7:08 PM CDT [facility] ABS. IMMATURE GRANULOCYTES 0.08(H) 0.00 - 0.03 x10'3/uL 12/15/2019 7:08 PM CDT [facility] ABS. NUCLEATED RBC'S 0.00 0.00 x10'3/uL 12/15/2019 7:08 PM CDT [facility] 12/15/2019 6:55 PM CDT us Gabriella Reddy MD LABORATORY Final Result [facility] [address] [place] [address], * ECG 12 lead (12/15/2019 6:48 PM CDT) 12/15/2019 6:48 PM CDT Narrative [facility] - 12/15/2019 11:16 PM CDT ? [facility] ?[address] [place], [place] ??[address] ? Test Date: ?2019-12-15 Pat Name: ? ALAYNA LAWRENCE ?Department: ? Room: ? EXAM 404 Gender: ? Female ? Converter Supervisor: ?? WEBE : ?1950 ? Requested By: GABRIELLA REDDY Order Number: [id number] ? Reading MD: ?? Mark Vazquez ? Measurements Intervals ?Hagerman ? Rate: ? 103 ?P: ?50 MO: ? 115 ?QRS: ?-55 QRSD: ? 81 ? T: ?45 QT: ? 354 ? QTc: ?464 ? Interpretive Statements SINUS TACHYCARDIA WITH SHORT MO INTERVAL POSSIBLE LEFT ATRIAL ENLARGEMENT PATTERN CONSISTENT WITH PULMONARY DISEASE LAD--INFERIOR MYOCARDIAL INFARCTION , PROBABLY OLD WITH POSTERIOR EXTENSION Procedure Note Mark Vazquez MD - 12/15/[address] [place] [address] Test Date: 2019-12-15 Pat Name: ALAYNA LAWRENCE Department: Room: EXAM 404 Gender: Female Converter Supervisor: KOTA : 1950 Requested By: GABRIELLA REDDY Order Number: [id number] Reading MD: Mark Vazquez Measurements Intervals Hagerman Rate: 103 P: 50 MO: 115 QRS: -55 QRSD: 81 T: 45 QT: 354 QTc: 464 Interpretive Statements SINUS TACHYCARDIA WITH SHORT MO INTERVAL POSSIBLE LEFT ATRIAL ENLARGEMENT PATTERN CONSISTENT WITH PULMONARY DISEASE LAD--INFERIOR MYOCARDIAL INFARCTION , PROBABLY OLD WITH POSTERIOREXTENSION us Gabriella Reddy MD ECG ORDERABLES Final Result [facility] * (ABNORMAL) CULTURE, BACTERIA, BLOOD (12/15/2019 6:45 PM CDT) SPEC DESCRIPTION BLOOD 12/15/2019 6:41 PM CDT [facility] SPECIAL REQUESTS NO SPECIAL REQUEST 12/15/2019 6:41 PM CDT [facility] GRAM STAIN RESULT GRAM POSITIVE RODS 12/16/2019 5:22 AM CDT [facility] GRAM STAIN RESULT CRITICAL VALUE CALLED TO DR REDDY 12/16/19 0540 R and V 12/16/2019 5:22 AM CDT [facility] CULTURE RESULT IN AEROBIC BLOOD CULTURE BACILLUS SPECIES NOT ANTHRACIS (AA) 12/16/2019 10:[address] [facility] BLOOD SPECIMEN OBTAINED FOR BLOOD CULTURE / Unknown 12/15/2019 6:45 PM CDT 12/15/2019 7:01 PM CDT us Gabriella Reddy MD MICROBIOLOGY - GENERAL ORDERA BLES Final Result [facility] [address] [place] [address], [place] [phone] [id number] [facility] [address] [place] [address], [place] [phone] documented in this encounter Visit Diagnoses Diagnosis Severe dehydration- Primary Dehydration Acute renal failure (ARF) ([facility]) Acute kidney failure, unspecified UTI (urinary tract infection) Urinary tract infection, site not specified Sepsis ([facility]) documented in this encounter Administered Medications Inactive Administered Medications - up to 3 most recent administrations Medication Order MAR Action Action Date Dose Rate Site cefTRIAXone (ROCEPHIN) 1 g in sodium chloride 0.9 % 50 mL IVPB 1 g, Intravenous, at 100 mL/hr, Once, 1 dose, On Sun12/15/19 at 2030 New 12/15/2019 8:49 PM CDT 1 g 100 mL/hr cefTRIAXone (ROCEPHIN) 1 g in sodium chloride 0.9 % 50 mL IVPB 1 g, Intravenous, at 100 mL/hr, Every 12 hours, First dose on Sun12/16/19 at 0830, Until Discontinued New 12/16/2019 11:32 AM CDT 1 g 100 mL/hr dextrose 5 %-sodium chloride 0.45 % infusion at 125 mL/hr, Intravenous, Once, 1 dose, On Sun12/16/19 at 0545 New Bag 12/16/2019 6:27 AM CDT 125 mL/hr sodium chloride 0.45% infusion at 125 mL/hr, Intravenous, Continuous, Starting on Sun12/15/19 at 2100, Until Sun12/16/19 at 1351 New Bag 12/15/2019 9:26 PM CDT 125 mL/hr sodium chloride 0.9% bolus infusion SOLN 1,000 mL 1,000 mL, Intravenous, Administer over 15 Minutes, Once, 1 dose, On Sun12/15/19 at 1845 New Bag 12/15/2019 7:04 PM CDT 1,000 mLs Left Arm documented in this encounter Active and Recently Administered Medications Times are shown in CDT. Scheduled Medication Order 12/14/2019 12/15/2019 12/16/2019 cefTRIAXone (ROCEPHIN) 1 g in sodium chloride 0.9 % 50 mL IVPB (COMPLETED) 1 g, Intravenous, at 100 mL/hr, Once, 1 dose, On Sun12/15/19 at 2030 2049 (New Bag - Provider: Isabel Horton, DANIAL)212 (Infusion Stop Time - Provider: Isabel Horton, DANIAL) cefTRIAXone (ROCEPHIN) 1 g in sodium chloride 0.9 % 50 mL IVPB 1 g, Intravenous, at 100 mL/hr, Every 12 hours, First dose on Sun12/16/19 at 0830, Until Discontinued 1132 (New Bag - Provider: Lynda Shaw RN)1202 (Due: Infusion Stop Time - Provider: Lynda Shaw RN) dextrose 5 %-sodium chloride 0.45 % infusion (COMPLETED) at 125 mL/hr, Intravenous, Once, 1 dose, On Sun12/16/19 at 0545 0627 (New Bag - Provider: Isabel Horton, DANIAL) sodium chloride 0.9% bolus infusion SOLN 1,000 mL (COMPLETED) 1,000 mL, Intravenous, Administer over 15 Minutes, Once, 1 dose, On Sun12/15/19 at 1845 1904 (New Bag - Provider: Suzy Marin RN)2052 (Infusion Stop Time - Provider: Isabel Horton, DANIAL) Continuous Medication Order 12/14/2019 12/15/2019 12/16/2019 sodium chloride 0.45% infusion at 125 mL/hr, Intravenous, Continuous, Starting on Sun12/15/19 at 2100, Until Sun12/16/19 at 1351 2126 (New Bag - Provider: Isabel Horton RN) 0600 (Infusion Stop Time - Provider: Isabel Horton RN) documented in this encounter Care Teams Intermediate Project Manager Relationship Specialty Start Date End Date Jasson Cueva MD [address] [place] [phone] PCP - General FAMILY PRACTICE 11/03/18 Huber Milligan MD [address] [place] [phone] Consulting Physician Vascular Neurology 04/30/19 Norm Hopkins MD [address] [place] [id number] Consulting Physician CLINICAL CARDIAC ELECTROPHYSIOLOGY 04/30/19 documented as of this encounter
--- OUTSIDE RECORDS SUMMARY | 2024-03-19 18:40 | XMS_ITS | Encounter Summary ---
Author Organization [facility] Address [address] [place] [address]. [place], [place] [address] [place] [address] Care Team Providers Care Rubber Block Layer Name Role Phone Jasson Valdivia MD Primary Care Provider [phone] Huber Milligan MD Unavailable [phone] Norm Duffy MD Unavailable [phone] Reason for Visit * Reason Comments Consult cryptogenic stroke * Consultation (Routine) - Closed Specialty Diagnoses / Procedures Referred By Contact Referred To Contact CLINICAL CARDIAC ELECTROPHYSIOLOGY / Cardiology Diagnoses Cryptogenic stroke ([facility]/HCC [facility]) Huber Milligan MD [address] [place] [phone] Phone: tel:[phone] fax:[phone] [facility] AT [address] [address] Phone: tel: fax: Referral ID Status Reason Start Date Expiration Date V isits Requested Visits Authorized [id number] Closed Specialty Services 04/28/2019 05/26/2020 1 1 Encounter Details Date Type Department Care Team (Latest Contact Info) Description 08/27/2019 12:30 PM CDT Office Visit [facility] AT [address] [phone] Norm Duffy MD [address] [place] [phone] Consult (cryptogenic stroke) Social History Tobacco Use Types Packs/Day Years Used Date Smoking Tobacco: Former Cigarettes Smokeless Tobacco: Never Alcohol Use Standard Drinks/Week Comments Not Currently 0 (1 standard drink = 0.6 oz pur e alcohol) Comments No Sex and Gender Information Value Date Recorded Sex Assigned at Not on file Legal 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EMAN Gender Identity Not on file Sexual Orientation Not on file COVID-19 Exposure Response Date Recorded In the last month, have you been in contact with someone who was confirmed or suspected to have Coronavirus / COVID-19? No / Unsure 08/27/2019 12:08 PM CDT documented as of this encounter Last Filed Vital Signs Vital Sign Reading Time Taken Comments Blood Pressure 126/82 08/27/2019 12:24 PM CDT Pulse 64 08/27/2019 12:24 PM CDT Temperature - - Respiratory Rate 16 08/27/2019 12:2 4 PM CDT Oxygen Saturation - - Inhaled Oxygen Concentration - - Weight 64.8 kg (142 lb 12.8 oz) 020 12:24 PM CDT Height 170.2 cm (5' 7 ) 08/27/2019 12:2 4 PM CDT Body Mass Index 22.37 08/27/2019 12:24 PM CDT documented in this encounter Functional [...] Saba RN Active documented in this encounter Patient Instructions * Patient Instructions* Danya Larsen RN - 08/27/2019 12:30 PM CDT Patient Education Patient Education Implantable Loop Recorder Why is this procedure done? An implantable loop recorder or ILR is a special kind of heart monitor. It does not have wires or patches, but it can record your heart rhythm for a few years. Since it records over a longer period than other kinds of heart monitors, your doctor may be able to learn more about problems with your heart rhythm. Your heart has an electrical system that controls each heartbeat and signals your heart to pump blood. The signal repeats with each heartbeat. The ILR records this electrical activity and sends it toyour doctor. You may need to have an ILR if your doctor suspects an abnormal heart rhythm does not happen often.It may not have shown up on other tests that only record for a shorter time. This may happen if youhave problems like: ?? Fainting ?? Abnormal heart beats ?? Unexplained falls ?? Seizures ?? Dizziness What happens before the procedure? ?? Your doctor will ask about your health history. Talk to the doctor about: ? All the drugs you are taking. Be sure to include all prescription and over the counter drugs, vitamins, and herbal supplements. Bring a list of drugs you take with you. ?? Tell the doctor if you have any drug allergy. ?? Ask a family member or friend to drive you home. You will not be allowed to drive after your procedure. What happens during the procedure? ?? Your doctor may give you something to help you relax. ?? The doctor will numb your skin and then make a small cut, most often on your left upper chest. ?? The doctor makes a small pocket under the skin and places the ILR in this pocket. The ILR is about the size of a dominguez. ?? Your doctor will close your cut and cover it with clean bandages. What happens after the procedure? ?? You will be able to go home after your procedure. ?? Your doctor will teach you how your ILR sends recordings. You may need to keep a special transmission monitor near you while you sleep. ?? Your doctor may ask you to write down any symptoms you are having. What care is needed at home? ?? Ask your doctor what you need to do when you go home. Make sure you ask questions if you do not understand everything the doctor says. ?? Talk to your doctor about how to care for your cut site. Ask your doctor about: ? When you should change your bandages. ? When you may take a bath or shower. ?? Be sure to wash your hands before and after touching your wound or bandage. ?? After your incision heals, you will not need to do anything special to care for your ILR. ?? Talk with your doctor if you are going to have an MRI. What follow-up care is needed? Your doctor will ask you to come back to the office to check on your progress. Be sure to keep these visits. When do I need to call the doctor? Activate the emergency medical system right away if you have signs of a heart attack. Call 911 in the [place] or [place]. The sooner treatment begins, the better your chances for recovery. Call for emergency help right away if you have: ?? Signs of heart attack: ? Chest pain ? Trouble breathing ? Fast heartbeat ? Feeling dizzy Last Reviewed Date 2017-03-27 Consumer Information Use and Disclaimer This information is not specific medical advice and does not replace information you receive from your health care provider. This is only a brief summary of general information. It does NOT include all information about conditions, illnesses, injuries, tests, procedures, treatments, therapies, discharge instructions or life-style choices that may apply to you. You must talk with your health care provider for complete information about your health and treatment options. This information should not be used to decide whether or not to accept your health care provider???s advice, instructions or recommendations. Only your health care provider has the knowledge and training to provide advice that is right for you. Copyright Copyright ?? 2020 [employer] and its affiliates and/or licensors. All rights reserved. documented in this encounter Progress Notes * Norm Duffy MD - 08/27/2019 12:30 PM CDT Images from the original note were not included. Cardiac Electrophysiology Clinic Note PATIENT NAME: Alayna Waite : 1950 REFERRING PROVIDER: Huber Milligan PCP: JASSON VALDIVIA MD Reason for Visit Cardiac electrophysiology consultation for embolic stroke of unknown source Requesting provider: Huber Milligan MD History of Present Illness I had the pleasure of seeing Alayna Waite in the Cardiac Electrophysiology Clinic at [facility]. As you are aware, Alayna Waite is a 69-year-old year old female with PMH of embolic stroke of unknown source, hypertension, depression presented to our clinic for consultation regarding cardiac causes of embolic stroke. She tingling of her right side with numbness for which she underwent a MRI which showed infarct of the frontal lobe and cerebellum. She underwent carotidduplex which did not reveal any significant carotid stenosis. She was sent to me for consultation for evaluation for occult atrial fibrillation as possible source for emboli. She denies any chest pain. Denies any shortness of breath. Denies any palpitations. Denies any syncopal episodes. Denies anydizziness. Denies any pedal edema. Denies any orthopnea/PND. Diagnostics EKG - From today shows sinus rhythm with left anterior fascicular block and old inferior MO. 30-day cardiac event monitor- From April 2019 shows sinus rhythm with no atrial fibrillation Diagnosis ?? 1. Embolic stroke of unknown source 2. Hypertension 3. Depression Recommendations ?? 1. Embolic stroke of unknown source: Her MRI showed multiple lacunar infarcts. Her risk factors foratrial fibrillation include age and hypertension. Her 30 day event monitor did not reveal any atrial fibrillation. CRYSTAL-AF study on use of implantable loop monitor showed that 14.6% patients with recent cryptogenic stroke have occult atrial fibrillation in the first year identified on the implantable loop monitor. Other studies have shown up to 24% prevalence of AF in this population. Given the high prevalence, I recommend pursuing an implantable loop recorder placement to screen for atrial fibrillation. I explained the procedure in detail to her. The risk of the procedure including bleeding, damage to muscle, bone and infection were explained. She is interested in proceeding with the procedure. We will not hold any medication prior to the procedure. 2. Hypertension: Controlled. Continue amlodipine and metoprolol. Thank you for allowing me to participate in the care of Alayna Waite Medications ?? Current Outpatient Medications: ??? amlodipine 10 MG tablet, , Disp: , Rfl: 1 ??? aspirin 325 MG tablet, Take 325 mg by mouth daily., Disp: , Rfl: ??? atorvastatin 40 MG tablet, Take 1 tablet (40 mg total) by mouth nightly at bedtime., Disp: 30 tablet, Rfl: 11 ??? gabapentin 600 MG tablet, Take 1 tablet (600 mg total) by mouth 3 (three) times daily., Disp: 90 tablet, Rfl: 11 ??? hydrocodone-acetaminophen (NORCO) 7.5-325 MG tablet, Take 1 tablet by mouth every 6 (six) hoursas needed for Pain., Disp: 10 tablet, Rfl: 0 ??? hydrocodone-acetaminophen 5-325 MG tablet, Take 1-2 tablets by mouth every 6 (six) hours as needed for Pain., Disp: 40 tablet, Rfl: 0 ??? metoprolol succinate ER 50 MG 24 hr tablet, , Disp: , Rfl: 2 ??? oxyCODONE-acetaminophen 5-325 MG tablet, Take 1 tablet by mouth every 6 (six) hours as needed for Pain., Disp: 40 tablet, Rfl: 0 Allergies No Known Allergies Past Medical History ?? Past Medical History: Diagnosis Date ??? Depression ??? Displaced fracture of proximal end of right humerus 11/06/2018 ??? Hypertension ??? Ischemic stroke (CMS/HCC) Past Surgical History ?? Past Surgical History: Procedure Laterality Date ??? JOINT REPLACEMENT ??? SHOULDER SURGERY ??? TOTAL HIP ARTHROPLASTY bilateral Social History ?? Social History Tobacco Use ??? Smoking status: Former Smoker Packs/day: 1.00 Types: Cigarettes ??? Smokeless tobacco: Never Used Substance Use Topics ??? Alcohol use: Not Currently ??? Drug use: No Family History ?? No family history of atrial fibrillation Review of Systems Review of Systems Constitutional: Negative for malaise/fatigue and weight loss. HENT: Negative for ear discharge, hearing loss and nosebleeds. Eyes: Negative for blurred vision and double vision. Respiratory: Negative for cough, hemoptysis, shortness of breath and wheezing. Cardiovascular: Negative for chest pain, palpitations, orthopnea, leg swelling and PND. Gastrointestinal: Negative for blood in stool and melena. Genitourinary: Negative for dysuria and hematuria. Musculoskeletal: Negative for joint pain and myalgias. Skin: Negative for itching and rash. Neurological: Negative for dizziness, tingling, sensory change, focal weakness, weakness and headaches. Endo/Heme/Allergies: Negative for polydipsia. Does not bruise/bleed easily. Psychiatric/Behavioral: Negative for depression. The patient is not nervous/anxious. Physical Examination Vitals: 08/27/19 1224 BP: 126/82 Pulse: 64 Resp: 16 Physical Exam Constitutional: She is oriented to person, place, and time. She appears well- developed and well-nourished. No distress. HENT: Head: Normocephalic and atraumatic. Nose: No mucosal edema. Mouth/Throat: Oropharynx is clear and moist and mucous membranes are normal. No oropharyngeal exudate. Eyes: Conjunctivae are normal. No scleral icterus. Neck: Neck supple. No JVD present. Carotid bruit is not present. Cardiovascular: Normal rate, regular rhythm, S1 normal, S2 normal and intact distal pulses. No extrasystoles are present. Exam reveals no gallop. No murmur heard. Pulmonary/Chest: Effort normal and breath sounds normal. No respiratory distress. She has no wheezes. Abdominal: Soft. She exhibits no mass. There is no hepatosplenomegaly. There is no tenderness. Musculoskeletal: She exhibits no edema or deformity. Neurological: She is alert and oriented to person, place, and time. She has normal strength. Skin: Skin is warm and dry. No rash noted. No erythema. Psychiatric: She has a normal mood and affect. Her behavior is normal. Thought content normal. Vitals reviewed. documented in this encounter Plan of Treatment Not on file documented as of this encounter Procedures Procedure Name Priority Date/Time Associated Diagnosis Comments ELECTROCARDIOGRAM (NON MIDMARK ACQUIRED) Routine 08/27/2019 12:17 PM CDT Ischemic stroke ([facility]) documented in this encounter Results * ELECTROCARDIOGRAM (08/27/2019 12:17 PM CDT) 08/27/2019 12:1 7 PM CDT Narrative [facility] - 08/27/2019 4:18 PM CDT ? [facility] ?[address], [place] ??[address] ? Test Date: ?2019-08-27 Pat Name: ? ALAYNA WAITE ?Department: ? Room: ? Gender: ? Female ? Time Study Clerk: ?? : ?1950 ? Requested By: NORM DUFFY Order Number: [id number] ?Reading MD: ?? Norm Duffy ? Measurements Intervals ?Bells ? Rate: ? 64 ? P: ?58 VA: ? 167 ?QRS: ?-53 QRSD: ? 78 ? T: ?72 QT: ? 416 ? QTc: ?432 ? Interpretive Statements SINUS RHYTHM WITH OCCASIONAL VENTRICULAR PREMATURE COMPLEXES LEFT ANTERIOR FASCICULAR BLOCK INFERIOR MYOCARDIAL INFARCTION, PROBABLY OLD WITH POSTERIOR EXTENSION No significant change from prior study Procedure Note Norm Duffy MD - 08/27/2019 [facility] [address] [place] [address] Test Date: 2019-08-27 Pat Name: ALAYNA WAITE Department: Room: Gender: Female Time Study Clerk: : 1950 Requested By: NORM DUFFY Order Number: [id number] Tae MD: Norm Duffy Measurements Intervals Bells Rate: 64 P: 58 VA: 167 QRS: -53 QRSD: 78 T: 72 QT: 416 QTc: 432 Interpretive Statements SINUS RHYTHM WITH OCCASIONAL VENTRICULAR PREMATURE COMPLEXES LEFT ANTERIOR FASCICULAR BLOCK INFERIOR MYOCARDIAL INFARCTION, PROBABLY OLD WITH POSTERIOR EXTENSION No significant change from prior study us Norm Duffy MD PROCEDURES-ORDERABLE NO C HARGE Final Result [facility] [address] [place] [address] documented in this encounter Visit Diagnoses Diagnosis Ischemic stroke (CMS/HCC HHS/HCC)- Primary documented in this encounter Care Teams Rubber Block Layer Relationship Specialty Start Date End Date Jasson Valdivia MD [address] [place] [phone] PCP - General FAMILY PRACTICE 11/03/18 Huber Milligan MD [address] [place] [phone] Consulting Physician Vascular Neurology 04/30/19 Norm Duffy MD [address] [place] [address] Consulting Physician CLINICAL CARDIAC ELECTROPHYSIOLOGY 04/30/19 documented as of this encounter
--- OUTSIDE RECORDS SUMMARY | 2024-03-19 18:40 | XMS_ITS | Encounter Summary ---
Author Organization [facility] Address [address] [place] [address]. [place], [place] [address] [place] [address] Care Team Providers Care Family Life Counselor Name Role Phone Jasson Cueva MD Primary Care Provider [phone] Huber Milligan MD Unavailable [phone] Norm Hopkins MD Unavailable [phone] Encounter Details Date Type Department Care Team (Latest Contact Info) Description 03/04/2020 Travel Social History Tobacco Use Types Packs/Day Years Used Date Smoking Tobacco: Former Cigarettes Smokeless Tobacco: Never Alcohol Use Standard Drinks/Week Comments Not Currently 0 (1 standard drink = 0.6 oz pur e alcohol) Comments No Sex and Gender Information Value Date Recorded Sex Assigned at Not on file 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 No / Unsure 03/04/2020 11:55 AM EXECUTIVE DIRECTOR documented as of this encounter Functional [...] in this encounter Care Teams Family Life Counselor Relationship Specialty Start Date End Date Jasson Cueva MD [address] [place] [phone] PCP - General FAMILY PRACTICE 11/03/18 Huber Milligan MD [address] [place] [phone] Consulting Physician Vascular Neurology 04/30/19 Norm Hopkins MD [address] [place] [address] Consulting Physician CLINICAL CARDIAC ELECTROPHYSIOLOGY 04/30/19 documented as of this encounter
--- OUTSIDE RECORDS SUMMARY | 2024-03-19 18:40 | XMS_ITS | Encounter Summary ---
Author Organization [facility] Address [address] [place] [address]. [place] [address] [place] [address] Care Team Providers Care Waste Reclaimer Name Role Phone Jasson Cueva MD Primary Care Provider [phone] Huber Milligan MD Unavailable [phone] Norm Hopkins MD Unavailable [phone] Encounter Details Date Type Department Care Team (Late st Contact Info) Description 09/02/2019 Orders Only [facility] [employer] [address] [place] [address] Norm Hopkins MD [address] 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 A negative result does not rule out the possibility of COVID-19 and should not be used as the sole basis for treatment or patient management decisions. ??If COVID-19 is still suspected, based on exposure history together with other clinical findings, re-testing should be considered in consultation with public health authorities. Laboratory test results should always be considered in the context of clinical observations and epidemiological data in making a final diagnosis and patient management decisions. Please review the Fact Sheets and FDA authorized labeling available for health care providers and patients using the following websites: https://www.[employer].com/home/Covid-19/HCP/NAAT/fact-sheet2 https://www.[employer].com/home/Covid-19/Patients/NAAT/ fact-sheet2 This test has been authorized by the FDA under an Emergency Use Authorization (EUA) for use by authorized laboratories. Due to the current public health emergency, [facility] is receiving a high volume of samples from a wide variety of swabs and media for COVID-19 testing. In order to serve patients during this public health crisis, samples from appropriate clinical sources are being tested. Negative test results derived from specimens received in non-commercially manufactured viral collection and transport media, or in media and sample collection kits not yet authorized by FDA for COVID-19 testing should be cautiously evaluated and the patient potentially subjected to extra precautions such as additional clinical monitoring, including collection of an additional specimen. Methodology: ??Nucleic Acid Amplification Test (NAAT) includes PCR or TMA Additional information about COVID-19 can be found at the [facility] website: www.[employer]/Covid19. Test performed at [facility] [address] [place], [place] ??[phone] Director: GABRIELLA MONROY DO,MPH NASOPHARYNGEAL SWAB / Unknown 09/02/2019 12:23 PM CDT us Norm Hopkins MD MICROBIOLOGY - GENERAL OR DERABLES Final Result [facility] [phone] [place] [address] documented in this encounter Visit Diagnoses Diagnosis Pre-operative laboratory examination- Primary Pre-procedural laboratory examination documented in this encounter Care Teams Waste Reclaimer Relationship Specialty Start Date End Date Jasson Cueva MD [address] [place] [phone] PCP - General FAMILY PRACTICE 11/03/18 Huber Milligan MD [address] [place] [phone] Consulting Physician Vascular Neurology 04/30/19 Norm Hopkins MD [address] [place] [address] Consulting Physician CLINICAL CARDIAC ELECTROPHYSIOLOGY 04/30/19 documented as of this encounter
--- OUTSIDE RECORDS SUMMARY | 2024-03-19 18:40 | XMS_ITS | Encounter Summary ---
Author Organization [facility] Address [address] [place] [address]. [place], [place] [phone] [place] [address] Care Team Providers Care Crew Truck Driver Name Role Phone Jasson Cueva MD Primary Care Provider Huber Milligan MD Unavailable [phone] Norm Hopkins MD Unavailable [phone] Encounter Details Date Type Department Care Team (Latest Contact Info) Description 06/23/2019 Travel Social History Tobacco Use Types Packs/Day Years Used Date Smoking Tobacco: Former Cigarettes Smokeless Tobacco: Never Alcohol Use Standard Drinks/Week Comments Not Currently 0 (1 standard drink = 0.6 oz pur e alcohol) Comments No Sex and Gender Information Value Date Recorded Sex Assigned at Not on file 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
--- OUTSIDE RECORDS SUMMARY | 2024-03-19 18:40 | XMS_ITS | Encounter Summary ---
Author Organization [facility] Address [address] [place] [address]. [place] [address] [place] [address] Care Team Providers Care Doctor Of Naprapathy Name Role Phone Jasson Cueva MD Primary Care Provider Reason for Visit * Reason Onset Date Comments Testing 04/15/2019 Encounter Details Date Type Department Care Team (Late st Contact Info) Description 04/15/2019 Telephone [facility] Neuroscience [facility] [address] [place] [address] Huber Milligan MD [address] [place] [address] Testing Social History Tobacco Use Types Packs/Day Years Used Date Smoking Tobacco: Every Day Cigarettes Smokeless Tobacco: Never Alcohol Use Standard Drinks/Week Comments Yes 0 (1 standard drink = 0.6 oz pur e alcohol) Comments No Sex and Gender Information Value Date Recorded Sex Assigned at Not on file Legal 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 ICE CREAM FREEZER HELPER Gender Identity Not on file Sexual Orientation [...] Linder RN Active documented in this encounter Progress Notes * Sharon Villa RN - 04/29/2019 9:44 AM CST Called Cassandra back and made her that we will cancel her CTA for now and that we are seeing her later this month and will address this at that time. Cassandra verbalized understanding. CREAM FREEZER HELPER * Huber Milligan MD - 04/28/2019 4:06 PM CST Let's cancel the CTA. I am seeing the patient later this month, will address at that time. CREAM FREEZER HELPER * She Segovia - 04/28/2019 3:35 PM CST Patricia with [facility] left vm that the CTA could not be done due to labs being out of range. She was to receive a call back but has not on how to proceed. She would like a call back to [phone]. CREAM FREEZER HELPER * Sharon Villa RN - 04/23/2019 1:11 PM CST See previous messages. Patient unable to get CTA head due to patient's creatinine too high. Do you want to cancel order and order different testing? MRA showed possible aneurysm and wanted to check CTA to make sure. Please advise. CREAM FREEZER HELPER * Rosibel Levy - 04/23/2019 11:53 AM CST Central scheduling called about CT again. Jessica stated this was still in her work queue and was needing direction. Please return call to [phone]. Thank you CREAM FREEZER HELPER * Sarah Box RN - 04/15/2019 10:51 AM CST Hospital called and states that patient was to have a CTA with and without contrast and patient's creatinine was too high and they could not do the contrast. Please call with any questions. CREAM FREEZER HELPER documented in this encounter Plan of Treatment Not on file documented as of this encounter Visit Diagnoses Not on filedocumented in this encounter Care Teams Doctor Of Naprapathy Relationship Specialty Start Date End Date Jasson Cueva MD [address] [place] [phone] PCP - General FAMILY PRACTICE 11/03/18 documented as of this encounter
--- OUTSIDE RECORDS SUMMARY | 2024-03-19 18:40 | XMS_ITS | Encounter Summary ---
Author Organization [facility] Address [address] [place] [address]. [place], [place] [address] [place] [address] Care Team Providers Care Skating Rink Manager Name Role Phone Jasson Cueva MD Primary Care Provider [phone] Huber Milligan MD Unavailable [phone] Nomr Hopkins MD Unavailable [phone] Encounter Details Date Type Department Care Team (Latest Contact Info) Description 12/15/2019 Travel Social History Tobacco Use Types Packs/Day Years Used Date Smoking Tobacco: Former Cigarettes Smokeless Tobacco: Never Alcohol Use Standard Drinks/Week Comments Not Currently 0 (1 standard drink = 0.6 oz pur e alcohol) Comments No Sex and Gender Information Value Date Recorded Sex Assigned at Not on file Legal 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 AWS SOFTWARE DEVELOPMENT 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
--- OUTSIDE RECORDS SUMMARY | 2024-03-19 18:40 | XMS_ITS | Encounter Summary ---
Author Organization [facility] Address [address] [place] [address]. [place], [place] [address] [place] [address] Care Team Providers Care Superintendent Compressor Stations Name Role Phone Jasson Cueva MD Primary Care Provider Huber Milligan MD Unavailable [phone] Norm Hopkins MD Unavailable [phone] Encounter Details Date Type Department Care Team (Late st Contact Info) Description 05/27/2020 11:27 AM MANAGER HAIR - 05/27/2020 11:59 PM MANAGER HAIR Hospital Encounter [facility] [address] [place] [address] [place] [address] Mary Jane Olivas MD [address] [place] [address] Discharge Disposition: Home or Self Care (Routine Discharge) Social History Tobacco Use Types Packs/Day Years Used Date Smoking Tobacco: Former Cigarettes Smokeless Tobacco: Never Alcohol Use Standard Drinks/Week Comments Not Currently 0 (1 standard drink = 0.6 oz pur e alcohol) Comments No Sex and Gender Information Value Date Recorded Sex Assigned at Not on file Legal 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 MANAGER HAIR Gender Identity Not on file Sexual Orientation Not on file COVID-19 Exposure Response Date Recorded In the last month, have you been in contact with someone who was confirmed or suspected to have Coronavirus / COVID-19? No / Unsure 05/27/2020 11:27 AM MANAGER HAIR documented as of this encounter Functional Status [...] Procedure Name Priority Date/Time Associated Diagnosis Comments ALBUMIN URINE RANDOM W/CREATININE Routine 05/27/2020 11:37 AM MANAGER HAIR Benign essential hypertension Nephrotic range proteinuria RENAL FUNCTION PANEL Routine 05/27/2020 11:30 AM MANAGER HAIR Benign essential hypertension Nephrotic range proteinuria CBC W/DIFF AUTOMATED Routine 05/27/2020 11:30 AM MANAGER HAIR Benign essential hypertension Nephrotic range proteinuria documented in this encounter Results * (ABNORMAL) ALBUMIN URINE RANDOM (05/27/2020 11:37 AM MANAGER HAIR) ALBUMIN ELECTROPHORESIS (U) 229.2 MG/DL 05/27/2020 1:27 PM MANAGER HAIR [facility] Comment: REFERENCE RANGE NOT ESTABLISHED CALLED TO YULI AT 1326 READ BACK AND VERIFIED CORRECTED ON 05/27 AT 1327: PREVIOUSLY REPORTED 187.3 REFERENCE RANGE NOT ESTABLISHED CREATININE (U) 142.8 MG/DL 05/27/2020 12:09 PM MANAGER HAIR [facility] Comment:REFERENCE RANGE NOT ESTABLISHED MICROALB/CREAT 1,605.0(H ) <30 MG/G 05/27/2020 1:27 PM MANAGER HAIR [facility] Comment: NORMAL TO MILDLY INCREASED ALBUMINURIA: [...] URINE SPECIMEN / Unknown 05/27/2020 11:37 AM MANAGER HAIR us Mary Jane Olivas MD URINE ORDERABLES Edited Re sult - Final [facility] [address] [place] [address], * (ABNORMAL) RENAL FUNCTION PANEL (05/27/2020 11:30 AM MANAGER HAIR) SODIUM S/P/B 146(H) 136 - 145 MMOL/L 05/27/2020 12:23 PM [facility] POTASSIUM S/P/B 5.1 3.5 - 5.1 MMOL/L 05/27/2020 12:23 PM [facility] CHLORIDE S/P/B 109(H) 98 - 107 MMOL/L 05/27/2020 12:23 PM [facility] CO2 26.5 21.0 - 32.0 MMOL/L 05/27/2020 12:23 PM [facility] GLUCOSE 89 70 - 99 MG/DL 05/27/2020 12:23 PM [facility] Comment: FASTING GLUCOSE 100 TO 125 MG/DL IS CONSISTENT WITH IMPAIRED FASTING GLUCOSE. FASTING GLUCOSE >125 MG/DL IS CONSISTENT WITH DIABETES. RANDOM GLUCOSE >200 MG/DL WITH HYPERGLYCEMIC SYMPTOMS IS CONSISTENT WITH DIABETES. PER ADA GUIDELINES BUN 34(H) 6 - 24 MG/DL 05/27/2020 12:23 PM [facility] CREATININE S/P/B 1.94(H) 0.55 - 1.02 MG/DL 05/27/2020 12:23 PM [facility] CALCIUM S/P/B 9.0 8.4 - 10.5 MG/DL 05/27/2020 12:23 PM [facility] ALBUMIN S/P/B 3.4 3.4 - 5.0 G/DL 05/27/2020 12:23 PM [facility] PHOSPHORUS 3.7 2.6 - 4.7 MG/DL 05/27/2020 12:28 PM [facility] ANION GAP 10.5 5.0 - 15.0 MMOL/L 05/27/2020 12:23 PM [facility] OSMOLALITY (CALC) 309 MOSM/KG 021 12:23 PM [facility] Comment:REFERENCE RANGE NOT ESTABLISHED EGFR NON-AFR. AMER. 26(L) >89 ML/MIN/1. 73 M2 05/27/2020 12:23 PM MANAGER HAIR [facility] EGFR AFR. AMER. 30(L) >89 ML/MIN/1. 73 M2 05/27/2020 12:23 PM MANAGER HAIR [facility] GFR NOTES GFR REFERENCE S: 05/27/2020 12:23 PM [facility] Comment: THE ESTIMATED GFR IS [...] <15 ml/min/1.73 m2 05/27/2020 11:3 0 AM MANAGER HAIR us Mary Jane Olivas MD LABORATORY Final Resu lt [facility] [address] [place] [address], * (ABNORMAL) CBC W/DIFF AUTOMATED (05/27/2020 11:30 AM MANAGER HAIR) WBC 7.4 4.5 - 10.8 x10'3/uL 05/27/2020 11:37 AM MANAGER HAIR [facility] RBC 4.44 4.10 - 5.40 x10'6/uL 05/27/2020 11:37 AM [facility] HGB 13.4 12.0 - 16.0 G/DL 05/27/2020 11:37 AM [facility] HCT 42.9 36.0 - 47.0 % 05/27/2020 11:37 AM [facility] MCV 96.6 78.0 - 100.0 FL 05/27/2020 11:37 AM [facility] MCH 30.2 27.0 - 31.0 PG 05/27/2020 11:37 AM [facility] MCHC 31.2(L) 33.0 - 36.0 G/DL 05/27/2020 11:37 AM [facility] RDW 13.9 11.5 - 14.5 % 05/27/2020 11:37 AM [facility] PLT 228 150 - 350 x10'3/uL 05/27/2020 11:37 AM [facility] MPV 10.6(H) 7.4 - 10.4 FL 05/27/2020 11:37 AM [facility] DIFFERENTIAL COMMENT NORMAL REFERENCE RANGE NOT ESTABLISHED FOR THE PROPORTIONAL LEUKOCYTE DIFFERENTIAL. 05/27/2020 11:37 AM [facility] SEG NEUTROPHILS 59.5 % 11:37 AM [facility] LYMPHOCYTES 25.1 % 05/27/2020 11:37 AM [facility] MONOCYTES 9.5 % 05/27/2020 11:37 AM [facility] EOSINOPHILS 4.7 % 05/27/2020 11:37 AM [facility] BASOPHILS 0.9 % 05/27/2020 11:37 AM [facility] IMMATURE GRANS % 0.3 % 05/28/19 11:37 AM [facility] NRBC 0.0 % 05/27/2020 11:37 AM [facility] ABS. NEUTROPHILS 4.40 1.60 - 8.30 x10'3/uL 05/27/2020 11:37 AM [facility] ABS. LYMPHOCYTES 1.86 0.80 - 4.70 x10'3/uL 05/27/2020 11:37 AM [facility] ABS. MONOCYTES 0.70 0.00 - 1.50 x10'3/uL 05/27/2020 11:37 AM [facility] ABS. EOSINOPHILS 0.35 0.00 - 0.40 x10'3/uL 05/27/2020 11:37 AM [facility] ABS. BASOPHILS 0.07 0.00 - 0.20 x10'3/uL 05/27/2020 11:37 AM MANAGER HAIR [facility] ABS. IMMATURE GRANULOCYTES 0.02 0.00 - 0.03 x10'3/uL 05/27/2020 11:37 AM MANAGER HAIR [facility] ABS. NUCLEATED RBC'S 0.00 0.00 x10'3/uL 05/27/2020 11:37 AM MANAGER HAIR [facility] 05/27/2020 11:3 0 AM MANAGER HAIR us Mary Jane Olivas MD LABORATORY Final Resu lt [facility] [address] [place] [address], documented in this encounter Visit Diagnoses Diagnosis Benign essential hypertension Essential hypertension, benign Nephrotic range proteinuria Proteinuria documented in this encounter Care Teams Superintendent Compressor Stations Relationship Specialty Start Date End Date Jasson Cueva MD [address] [place] [phone] PCP - General FAMILY PRACTICE 11/03/18 Huber Milligan MD [address] [place] [phone] Consulting Physician Vascular Neurology 04/30/19 Norm Hopkins MD [address] [place] [address] Consulting Physician CLINICAL CARDIAC ELECTROPHYSIOLOGY 04/30/19 documented as of this encounter
--- OUTSIDE RECORDS SUMMARY | 2024-03-19 18:40 | XMS_ITS | Encounter Summary ---
Author Organization [facility] Address [address] [place] [address]. [place] [address] [place] [address] Care Team Providers Care Hostage Negotiator Name Role Phone Jasson Cueva MD Primary Care Provider [phone] Huber Milligan MD Unavailable [phone] Norm Hopkins MD Unavailable [phone] Reason for Referral * Imaging (Routine) - Closed Specialty Diagnoses / Procedures Referred By Contac t Referred To Contact RADIOLOGY Diagnoses Ischemic stroke ([facility]) Procedures XA LOOP RECORDER Norm Hopkins MD [address] [place] [address] Phone: tel: fax: Referral ID Status Reason Start Date Expiration Date Visits Re quested Visits Authorized [id number] Closed 09/02/2019 10/02/2020 1 1 Reason for Visit * Reason Onset Date Comments Schedule Procedure 09/01/2019 Encounter Details Date Type Department Care Team (Late st Contact Info) Description 09/01/2019 Telephone [facility] [address] [place] [address] Norm Hopkins MD [address] [place] [address] Schedule Procedure Social History Tobacco Use Types Packs/Day Years Used Date Smoking Tobacco: Former Cigarettes Smokeless Tobacco: Never Alcohol Use Standard Drinks/Week Comments Not Currently 0 (1 standard drink = 0.6 oz pur e alcohol) Comments No Sex and Gender Information Value Date Recorded Sex Assigned at Not on file Legal 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 No / Unsure 09/02/2019 12:06 PM CDT documented as of this encounter [...] documented in this encounter Progress Notes * Karen Larsen RN - 09/03/2019 4:43 PM CDTAddended by: KAREN LARSEN on: 09/03/2019 04:43 PM Modules accepted: Orders * Karen Larsen RN - 09/02/2019 10:46 AM CDT Zack returned call - pt is agreeable for procedure and will go to [facility] now for covid test. He was instructed to scrap picker hibiclens at a local pharmacy and to have pt use it to wash her chest the night before and morning of the procedure. Patient voiced understanding and had no questions. * Karen Larsen RN - 09/01/2019 9:46 AM CDT Called pt - spoke with son Zack to schedule Loop implant. He will check his schedule and call back to confirm: 09/01 - covid test at [facility] 09/04 - arrive 12:30 for Loop implant at 2:00. Nothing to eat or drink after 6am on 09/04. documented in this encounter Plan of Treatment Pending Results Name Type Priority Associated Diagnoses Date /Time XA LOOP RECORDER Cardiac Cath Routine Ischemic stroke ([facility]) 09/05/2019 2:34 PM CDT Scheduled Orders Name Type Priority Associated Diagnoses Orde r Schedule XA LOOP RECORDER Cardiac Cath Routine Ischemic stroke ([facility]) Expected: 09/02/2019, Expires: 09/01/2020 documented as of this encounter Visit Diagnoses Diagnosis Ischemic stroke ([facility])- Primary documented in this encounter Additional Health Concerns Infection Onset Date Last Indicated Resolved Time COVID-19 Rule Out 09/02/2019 09/02/2019 09/04/2019 6:25 PM CDT documented as of this encounter Care Teams Hostage Negotiator Relationship Specialty Start Date End Date Jasson Cueva MD [address] [place] [phone] PCP - General FAMILY PRACTICE 11/03/18 Huber Milligan MD [address] [place] [phone] Consulting Physician Vascular Neurology 04/30/19 Norm Hopkins MD [address] [place] [address] Consulting Physician CLINICAL CARDIAC ELECTROPHYSIOLOGY 04/30/19 documented as of this encounter
--- OUTSIDE RECORDS SUMMARY | 2024-03-19 18:40 | XMS_ITS | Encounter Summary ---
Author Organization [facility] Address [address] [place] [address]. [place], [place] [address] [place] [address] Care Team Providers Care Head Automatic Sawyer Name Role Phone Jasson Cueva MD Primary Care Provider [phone] Huber Milligan MD Unavailable [phone] Norm Hopkins MD Unavailable [phone] Encounter Details Date Type Department Care Team (Latest Contact Info) Description 05/05/2019 Travel Social History Tobacco Use Types Packs/Day Years Used Date Smoking Tobacco: Every Day Cigarettes Smokeless Tobacco: Never Alcohol Use Standard Drinks/Week Comments Yes 0 (1 standard drink = 0.6 oz pur e alcohol) Comments No Sex and Gender Information Value Date Recorded Sex Assigned at Not on file Legal 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 HTML DEVELOPER Gender Identity Not on file Sexual Orientation [...] on filedocumented in this encounter Care Teams Head Automatic Sawyer Relationship Specialty Start Date End Date Jasson Cueva MD [address] [place] [phone] PCP - General FAMILY PRACTICE 11/03/18 Huber Milligan MD [address] [place] [phone] Consulting Physician Vascular Neurology 04/30/19 Norm Hopkins MD [address] [place] [address] Consulting Physician CLINICAL CARDIAC ELECTROPHYSIOLOGY 04/30/19 documented as of this encounter
--- OUTSIDE RECORDS SUMMARY | 2024-03-19 18:40 | XMS_ITS | Encounter Summary ---
Author Organization [facility] Address [address] [place] [address]. [place], [place] [address] [place] [address] Care Team Providers Care Field Worker Name Role Phone Jasson Cueva MD Primary Care Provider [phone] Huber Milligan MD Unavailable [phone] Norm Hopkins MD Unavailable [phone] Encounter Details Date Type Department Care Team (Latest Contact Info) Description 04/05/2020 Travel Social History Tobacco Use Types Packs/Day Years Used Date Smoking Tobacco: Former Cigarettes Smokeless Tobacco: Never Alcohol Use Standard Drinks/Week Comments Not Currently 0 (1 standard drink = 0.6 oz pur e alcohol) Comments No Sex and Gender Information Value Date Recorded Sex Assigned at Not on file Legal 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 MANAGER INTEGRITY Gender Identity Not on file Sexual Orientation Not on file COVID-19 Exposure Response Date Recorded In the last month, have you been in contact with someone who was confirmed or suspected to have Coronavirus / COVID-19? No / Unsure 04/05/2020 9:32 AM MANAGER INTEGRITY documented as of this encounter Functional Status [...] on filedocumented in this encounter Care Teams Field Worker Relationship Specialty Start Date End Date Jasson Cueva MD [address] [place] [phone] PCP - General FAMILY PRACTICE 11/03/18 Huber Milligan MD [address] [place] [phone] Consulting Physician Vascular Neurology 04/30/19 Norm Hopkins MD [address] [place] [address] Consulting Physician CLINICAL CARDIAC ELECTROPHYSIOLOGY 04/30/19 documented as of this encounter
--- OUTSIDE RECORDS SUMMARY | 2024-03-19 18:40 | XMS_ITS | Encounter Summary ---
Author Organization [facility] Address [address] [place] [address]. [place], [place] [address] [place] [address] Care Team Providers Care Art History Professor Name Role Phone Jasson Cueva MD Primary Care Provider [phone] Huber Milligan MD Unavailable [phone] Norm Hopkins MD Unavailable [phone] Encounter Details Date Type Department Care Team (Latest Contact Info) Description 03/11/2020 Travel Social History Tobacco Use Types Packs/Day Years Used Date Smoking Tobacco: Former Cigarettes Smokeless Tobacco: Never Alcohol Use Standard Drinks/Week Comments Not Currently 0 (1 standard drink = 0.6 oz pur e alcohol) Comments No Sex and Gender Information Value Date Recorded Sex Assigned at Not on file Legal 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 AREA SALES MANAGER Gender Identity Not on file Sexual Orientation Not on file COVID-19 Exposure Response Date Recorded In the last month, have you been in contact with someone who was confirmed or suspected to have Coronavirus / COVID-19? No / Unsure 03/11/2020 11:16 AM AREA SALES MANAGER documented as of this encounter Functional [...] on filedocumented in this encounter Care Teams Art History Professor Relationship Specialty Start Date End Date Jasson Cueva MD [address] [place] [phone] PCP - General FAMILY PRACTICE 11/03/18 Huber Milligan MD [address] [place] [phone] Consulting Physician Vascular Neurology 04/30/19 Norm Hopkins MD [address] [place] [address] Consulting Physician CLINICAL CARDIAC ELECTROPHYSIOLOGY 04/30/19 documented as of this encounter
--- OUTSIDE RECORDS SUMMARY | 2024-03-19 18:40 | XMS_ITS | Encounter Summary ---
Author Organization [facility] Address [address] [place] [address]. [place], [place] [address] [place] [address] Care Team Providers Care Radiosonde Operator Name Role Phone Jasson Cueva MD Primary Care Provider [phone] Huber Milligan MD Unavailable [phone] Norm Hopkins MD Unavailable [phone] Encounter Details Date Type Department Care Team (Latest Contact Info) Description 08/27/2019 Travel Social History Tobacco Use Types Packs/Day Years Used Date Smoking Tobacco: Former Cigarettes Smokeless Tobacco: Never Alcohol Use Standard Drinks/Week Comments Not Currently 0 (1 standard drink = 0.6 oz pur e alcohol) Comments No Sex and Gender Information Value Date Recorded Sex Assigned at Not on file Legal 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 SPACE PHYSICIST Gender Identity Not on file Sexual Orientation [...] Author Status No 11/26/2018 12:08 PM Lynda Lnider RN Active * Do you have difficulty [...] on filedocumented in this encounter Care Teams Radiosonde Operator Relationship Specialty Start Date End Date Jasson Cueva MD [address] [place] [phone] PCP - General FAMILY PRACTICE 11/03/18 Huber Milligan MD [address] [place] [phone] Consulting Physician Vascular Neurology 04/30/19 Norm Hopkins MD [address] [place] [address] Consulting Physician CLINICAL CARDIAC ELECTROPHYSIOLOGY 04/30/19 documented as of this encounter
--- OUTSIDE RECORDS SUMMARY | 2024-03-19 18:40 | XMS_ITS | Encounter Summary ---
Author Organization [facility] Address [address] [place] [address]. [place] [address] [place] [address] Care Team Providers Care Floor Worker Transfer [place] Name Role Phone Jasson Cueva MD Primary Care Provider [phone] Huber Milligan MD Unavailable [phone] Norm Hopkins MD Unavailable [phone] Encounter Details Date Type Department Care Team (Late st Contact Info) Description 09/02/2019 Prep for Procedure Janis's Talent Coordinator Pre/Post [address] [place] [address] Norm Hopkins MD [address] [place], [place] [phone] Social History Tobacco Use Types Packs/Day Years Used Date Smoking Tobacco: Former Cigarettes Smokeless Tobacco: Never Alcohol Use Standard Drinks/Week Comments Not Currently 0 (1 standard drink = 0.6 oz pur e alcohol) Comments No Sex and Gender Information Value Date Recorded Sex Assigned at Not on file Legal 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 BAKER BENCH Gender Identity Not on file Sexual Orientation [...] on filedocumented in this encounter Care Teams Floor Worker Transfer [place] Relationship Specialty Start Date End Date Jasson Cueva MD [address] [place] [phone] PCP - General FAMILY PRACTICE 11/03/18 Huber Milligan MD [address] [place] [phone] Consulting Physician Vascular Neurology 04/30/19 Norm Hopkins MD [address] [place] [address] Consulting Physician CLINICAL CARDIAC ELECTROPHYSIOLOGY 04/30/19 documented as of this encounter
--- OUTSIDE RECORDS SUMMARY | 2024-03-19 18:40 | XMS_ITS | Encounter Summary ---
Author Organization [facility] Address [address] [place] [address]. [place] [address] [place] [address] Care Team Providers Care Public Health Assistant Name Role Phone Jasson Cueva MD Primary Care Provider Huber Milligan MD Unavailable [phone] Norm Hopkins MD Unavailable [phone] Reason for Visit * Reason Onset Date Comments Reschedule 06/06/2019 Covid-19 Precaut ion Encounter Details Date Type Department Care Team (Late st Contact Info) Description 06/06/2019 Telephone [facility] [address] [place] [address] Norm Hopkins MD [address] [place] [address] Reschedule (Covid-19 Precaution) Social History Tobacco Use Types Packs/Day Years Used Date Smoking Tobacco: Every Day Cigarettes Smokeless Tobacco: Never Alcohol Use Standard Drinks/Week Comments Yes 0 (1 standard drink = 0.6 oz pur e alcohol) Comments No Sex and Gender Information Value Date Recorded Sex Assigned at Not on file Legal 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 BALL WINDER Gender Identity Not on file Sexual Orientation [...] encounter Progress Notes * Sabrina Diego - 06/06/2019 2:10 PM CDT I called JANELLE/son Zack at [phone] to discuss Covid-19 precautions. Consult s/p stroke appt rescheduled to 08/27/19 at 12:30pm w/ Dr. Jasmine. Zack is aware that I may callto offer a cancellation spot sooner. documented in this encounter Plan of Treatment Not on file documented as of this encounter Visit Diagnoses Not on filedocumented in this encounter Care Teams Public Health Assistant Relationship Specialty Start Date End Date Jasson Cueva MD [address] [place] [phone] PCP - General FAMILY PRACTICE 11/03/18 Huber Milligan MD [address] [place] [phone] Consulting Physician Vascular Neurology 04/30/19 Norm Hopkins MD [address] [place] [address] Consulting Physician CLINICAL CARDIAC ELECTROPHYSIOLOGY 04/30/19 documented as of this encounter
--- OUTSIDE RECORDS SUMMARY | 2024-03-19 18:40 | XMS_ITS | Encounter Summary ---
Author Organization [facility] Address [address] [place] [address]. [place], [place] [address] [place] [address] Care Team Providers Care Balance Wheel Facer Name Role Phone Jasson Cueva MD Primary Care Provider [phone] Huber Milligan MD Unavailable [phone] Norm Hopkins MD Unavailable [phone] Reason for Visit * Reason Comments Follow Up stroke Encounter Details Date Type Department Care Team (Late st Contact Info) Description 06/23/2019 2:20 PM CDT Teleconsult [facility] [address], [place] [address] Huber Milligan MD 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 Vascular and Interventional Neurology Office TELEPHONE VISIT NOTE CC: Double vision HPI Trisha Waite is a 68-year-old woman who suffered a stroke in 2018. It was a lacunar infarctof the left thalamus. The patient had some neuropathic pain afterwards. She also reported weakness of the right arm. There were some symptoms of neuropathic pain. She was started on gabapentin 300 mg, and is now taking 600 mg tid. Today we performed a telephone visit. Her son was on the call. Ms. Waite reported that the neuropathic pain is much better. She still feels the right arm is weak; she can hold items, but doesn't feel she can fully trust her primary care sales representative on that side. Today Mrs. Waite talked about double vision. This is intermittent. It can last for about 10-20 minutes per spell. No clear precipitating factors -can happen when she's walking around or when she's resting. Symptoms resolve spontaneously. Her son (who was on the phone with her) notes no problems with change in her eye appearance nor cross eyed appearance. Mrs. Waite is off aspirin per her primary physician's recommendation. There was mention of a possible cerebral aneurysm. I wanted to obtain a CTA but her Cr was too high. When I reviewed the MRA, I didn't see any cause for concern. Past Medical History: Diagnosis Date ??? Depression ??? Displaced fracture of proximal end of right humerus 11/06/2018 ??? Hypertension Current Outpatient Medications: ??? amlodipine 10 MG tablet, , Disp: , Rfl: 1 ??? gabapentin 600 MG tablet, Take 1 tablet (600 mg total) by mouth 3 (three) times daily., Disp: 90 tablet, Rfl: 11 ??? metoprolol succinate ER 50 MG 24 hr tablet, , Disp: , Rfl: 2 ??? aspirin 325 MG tablet, Take 325 mg by mouth daily., Disp: , Rfl: ??? atorvastatin 40 MG tablet, Take 1 tablet (40 mg total) by mouth nightly at bedtime., Disp: 30 tablet, Rfl: 11 ??? hydrocodone-acetaminophen (NORCO) 7.5-325 MG tablet, Take 1 tablet by mouth every 6 (six) hoursas needed for Pain., Disp: 10 tablet, Rfl: 0 ??? hydrocodone-acetaminophen 5-325 MG tablet, Take 1-2 tablets by mouth every 6 (six) hours as needed for Pain., Disp: 40 tablet, Rfl: 0 ??? oxyCODONE-acetaminophen 5-325 MG tablet, Take 1 tablet by mouth every 6 (six) hours as needed for Pain., Disp: 40 tablet, Rfl: 0 No Known Allergies [facility] Per patient both parents of old age, neither had an chronic medical conditions Social History Tobacco Use ??? Smoking status: Former Smoker Packs/day: 1.00 Types: Cigarettes ??? Smokeless tobacco: Never Used Substance Use Topics ??? Alcohol use: Not Currently Review of Systems Constitutional: Negative for fever. Eyes: Positive for double vision. Respiratory: Negative for shortness of breath. Cardiovascular: Negative for chest pain. IMAGING No recent neuroimaging to review IMPRESSION/MEDICAL DECISION MAKING 1. Double vision. No other symptoms that point to myasthenia gravis. 2. Prior ischemic stroke 3. Neuropathic pain - doing well 4. During last visit there was concern for cognitive dysfunction/possible dementia PLAN ?? Pt instructed to start aspirin 81 mg daily ?? Continue gabapentin ?? I don't think there is an ominous/serious cause for her double vision, will evaluate at our nextin-person visit ?? Will evaluate cognition at our next in-person visit Follow-up 6 months or so in [place]. Total length of time for the phone call was 10 minutes documented in this encounter Plan of Treatment Not on file documented as of this encounter Visit Diagnoses Diagnosis Neuropathic pain- Primary Neuralgia, neuritis, and radiculitis, unspecified Diplopia documented in this encounter Care Teams Balance Wheel Facer Relationship Specialty Start Date End Date Jasson Cueva MD [address] [place] [phone] PCP - General FAMILY PRACTICE 11/03/18 Huber Milligan MD [address] [place] [phone] Consulting Physician Vascular Neurology 04/30/19 Norm Hopkins MD [address] [place] [address] Consulting Physician CLINICAL CARDIAC ELECTROPHYSIOLOGY 04/30/19 documented as of this encounter
--- OUTSIDE RECORDS SUMMARY | 2024-03-19 18:40 | XMS_ITS | Encounter Summary ---
Author Organization [facility] Address [address] [place] [address]. [place], [place] [address] [place] [address] Care Team Providers Care Bulk Pallet Builder Name Role Phone Jasson Valdivia MD Primary Care Provider [phone] Huber Milligan MD Unavailable [phone] Norm Hopkins MD Unavailable [phone] Reason for Referral * Imaging (Routine) - Closed Specialty Diagnoses / Procedures Referred By Contac t Referred To Contact RADIOLOGY Diagnoses Ischemic stroke ([facility] HHS/HCC) Procedures XA LOOP RECORDER [place] [address] Phone: tel: fax: Referral ID Status Reason Start Date Expiration Date Visits Re quested Visits Authorized [id number] Closed 09/02/2019 10/02/2020 1 1 Reason for Visit * Imaging (Routine) - Closed Specialty Diagnoses / Procedures Referred By Contac t Referred To Contact RADIOLOGY Diagnoses Ischemic stroke ([facility]/HCC HHS/HCC) Procedures XA LOOP RECORDER Norm Hopkins MD [address] [place] [address] Phone: tel: fax: Referral ID Status Reason Start Date Expiration Date Visits Re quested Visits Authorized [id number] Closed 09/02/2019 10/02/2020 1 1 Encounter Details Date Type Department Care Team (Latest Contact Info) Description 09/05/2019 12:23 PM CDT - 09/05/2019 3:44 PM CDT Hospital Encounter [facility] Lab Pre/Post [address] [place] [address] Norm Hopkins MD [address] [place], [place] [id number] Discharge Disposition: Home or Self Care (Routine Discharge) Social History Tobacco Use Types Packs/Day Years Used Date Smoking Tobacco: Former Cigarettes Smokeless Tobacco: Never Alcohol Use Standard Drinks/Week Comments Not Currently 0 (1 standard drink = 0.6 oz pur e alcohol) Comments No Sex and Gender Information Value Date Recorded Sex Assigned at Not on file 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 No / Unsure 09/05/2019 1:26 PM CDT documented as of this encounter Last Filed Vital Signs Vital Sign Reading Time Taken Comments Blood Pressure 115/76 09/05/2019 1:32 PM CDT 115/75 LEFT BP Pulse 80 09/05/2019 1:32 PM CDT Temperature 35.9 ??C (96.7 ??F) 09/05/2019 1 :32 PM CDT Respiratory Rate 16 09/05/2019 1:32 PM CDT Oxygen Saturation 95% 09/05/2019 1:3 2 PM CDT Inhaled Oxygen Concentration - - Weight 65.7 kg (144 lb 13.5 oz) 09/05/2019 1:32 PM CDT Height 170.2 cm (5' 7 ) 09/05/2019 1:32 PM CDT Body Mass Index 22.69 09/05/2019 1:32 PM CDT documented in this encounter Functional [...] Linder RN Active documented in this encounter Discharge Instructions * Discharge Instructions* Marisabel Law RN - 09/05/2019 3:23 PM CDT Due to the sedation you received today, (for 24 hours) please do not: -Sign any legal documents or make any important decisions -Drink alcohol or take medication intended to make you sleep -Drive a car or operate any hazardous machinery Post Loop Recorder Implantation Home instructions What to Expect After the Procedure? - If sedation is used during the procedure, you may feel tired, slightly uncoordinated, and need additional sleep. - You may have some pain and tenderness over the incision for the next few days. Take Tylenol for pain. - Mild swelling and some bruising can occur over the device site. These symptoms should get better with in a week. Activity Restrictions - Take it easy for a couple of days. You may walk, climb stairs, ride a car, and do light householdchores. - Do not lift heavy objects (greater than 15-20 pounds) for 1 week. - You can resume driving the day after the procedure. Incision Care - Remove the dressing over the device the morning of the procedure. - Carefully inspect the incision daily. Look for signs of infection, including any drainage, increased redness, swelling, bleeding, if the site feel warm to the touch. If you notice any of these signs or develop a fever over 100 F, please call your EP physician. - You may shower the day after the procedure. While showering, make sure you cover the incision with a small towel to avoid direct exposure from water stream until it is completely healed. Pat dry. Call Immediately for the Following - Drainage (pus or blood) from the incision - Opening of the edges of the incision - Increasing pain around the incision - Increasing swelling around the device - Fever Resume home medications as directed. Future Appointments - Your EP physician's office will send you a follow up appointment letter in the mail. - You were provided a home monitor which will allow the physician to monitor your device remotely. You will have an appointment every 3-6 months. - You will receive a permanent device card in the mail. Keep this with you at all times for emergency purposes and air travel. documented in this encounter Medications at Time [...] 11/08/2018 01/06/2023 documented as of this encounter H&P Notes * Norm Hopkins MD - 09/05/2019 2:39 PM CDT HISTORY AND PHYSICAL INTERVAL NOTE: I have reviewed Trisha Waite History & Physical which was performed within the past 30 days.After examining Trisha Waite, no change has occurred in the patient's condition since the H&P was completed. Informed Consent Discussion: Potential benefits, risks, and side effects of the patient's procedure/surgery; the likelihood of the patient achieving his or her goals; and any potential problems that might occur during recuperation were discussed with the patient/family/personal arborist representative. Reasonable alternatives to the patient's proposed procedure/surgery including benefits, risks, and side effects related to the alternatives and the risks related to not receiving the proposed care were also discussed with the patient/family/personal arborist representative. Questions were answered and the patient/family/personal arborist representative verbalized understanding and desires to proceed. Source Note - Norm Hopkins MD - 08/27/2019 12:30 PM CDT Images from the original note were not included. Cardiac Electrophysiology Clinic Note PATIENT NAME: Trisha Waite : 1950 REFERRING PROVIDER: Huber Milligan PCP: JASSON VALDIVIA MD Reason for Visit Cardiac electrophysiology consultation for embolic stroke of unknown source Requesting provider: Huber Milligan MD History of Present Illness I had the pleasure of seeing Trisha Waite in the Cardiac Electrophysiology Clinic at [facility]. 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 30-day cardiac event monitor- From April 2019 [...] me to participate in the care of Trisha Waite Medications ?? Current Outpatient Medications: ??? [...] normal. Vitals reviewed. documented in this encounter Procedure Notes * Norm Hopkins MD - 09/05/2019 2:40 PM CDT Images from the original note were not included. Cardiac Electrophysiology Procedure Note Patient: Trisha Waite Age: 69-year-old Sex: female Procedure: Implantable loop recorder placement Preprocedure diagnosis: Cryptogenic stroke Postprocedure diagnosis: Cryptogenic stroke to rule out atrial fibrillation Attending: Norm Hopkins MD Medications: Ancef 2 gm Operative note: The patient was brought to the EP lab in the post-absorptive state. Consent was obtained and time out was performed to confirm the correct patient and procedure. Site was identified and the patient was draped in a sterile fashion. 1% lidocaine with epinephrine was used for local anesthesia. Using asurgical blade a 0.5 mm incision was made over the left 4th intercostal space 1 cm lateral to the sternal border. Using the Medtronic LINQ insertion tool, the LINQ loop recorder was implanted subcutaneously in a traditional diagonal position with excellent sensing threshold. The pocket was closed with a single 3-0 Vicryl suture and the skin was glued using dermabond. The incision site was closed with steristrips and was covered with gauze and tegaderm. Findings: R wave amplitude 0.54 mV Loop recorder: Medtronic LINQ Model [id number] Serial # [id number] Settings: Tachy - detection interval - 370 ms (162 bpm)16 intervals Fuentes - detection interval - 2000 ms (30 bpm) 4 intervals, pause - 3 sec Complications: None Conclusions: 1. Successful implantation of Medtronic LINQ implantable loop recorder. 2. The patient will be provided wound care, home monitoring and follow-up instructions. documented in this encounter Plan of Treatment Pending Results Name Type Priority Associated Diagnoses Date /Time XA LOOP RECORDER Cardiac Cath Routine Ischemic stroke ([facility]) 09/05/2019 2:34 PM CDT Scheduled Orders Name Type Priority Associated Diagnoses Orde r Schedule XA LOOP RECORDER Cardiac Cath Routine Ischemic stroke ([facility]) 1 Occurrences starting 09/05/2019 until 09/05/2019 documented as of this encounter Visit Diagnoses Diagnosis Ischemic stroke ([facility]) documented in this encounter Care Teams Bulk Pallet Builder Relationship Specialty Start Date End Date Jasson Valdivia MD [address] [place] [phone] PCP - General FAMILY PRACTICE 11/03/18 Huber Milligan MD [address] [place] [phone] Consulting Physician Vascular Neurology 04/30/19 Norm Hopkins MD [address] [place] [address] Consulting Physician CLINICAL CARDIAC ELECTROPHYSIOLOGY 04/30/19 documented as of this encounter
--- OUTSIDE RECORDS SUMMARY | 2024-03-19 18:40 | XMS_ITS | Encounter Summary ---
Author Organization [facility] Address [address] [place] [address]. [place] [address] [place] [address] Care Team Providers Care Manager Policy Name Role Phone Jasson Cueva MD Primary Care Provider [phone] Huber Milligan MD Unavailable [phone] Norm Hopkins MD Unavailable [phone] Reason for Referral * Imaging (Routine) - Closed Specialty Diagnoses / Procedures Referred By Contac t Referred To Contact Diagnoses Cryptogenic stroke ([facility]/HCC [facility]) Procedures [id number] [facility] - Today Norm Hopkins MD [address] [place] [address] Phone: tel: fax: Referral ID Status Reason Start Date Expiration Date Visits Re quested Visits Authorized [id number] Closed 04/30/2019 05/28/2020 1 1 T ADVOCATE Reason for Visit * Reason Onset Date Comments Appointment Request 04/29/2019 Encounter Details Date Type Department Care Team (Late st Contact Info) Description 04/29/2019 [facility]phone [facility] [address] [place] [address] Norm Hopkins MD [address] [place] [address] Appointment Request Social History Tobacco Use Types Packs/Day Years Used Date Smoking Tobacco: Every Day Cigarettes Smokeless Tobacco: Never Alcohol Use Standard Drinks/Week Comments Yes 0 (1 standard drink = 0.6 oz pur e alcohol) Comments No Sex and Gender Information Value Date Recorded Sex Assigned at Not on file Legal 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 ADVOCATE Gender Identity Not on file Sexual Orientation [...] documented in this encounter Progress Notes * Danya Larsen RN - 04/30/2019 2:47 PM CST Patient called - she is agreeable to wear monitor and gave auth to discuss all care with her son Zack. I let her know we would send out the monitor and schedule an appointment for after is it due to be turned in. She requests that I mail the monitor to her son's address. Called Zack [phone], and let him know monitor should go out tomorrow and that all equip should be returned as soon as it is taken off to ensure we have the data for her clinic appt on 06/10 12:00 w/ Dr Jasmine. He voiced understanding and gave address to mail monitor: [address], [place] [address] T ADVOCATE * Danya Larsen RN - 04/29/2019 1:57 PM CST Called number on file, this is for son Zack who is POA. I explained why I was calling and he statedhe made all the appt for his mother. I asked that he have her call us so I could verify she wanted him listed as JANELLE. Plan is to send 30 day BG and schedule appt for week of 06/08 so results can be received. T ADVOCATE * Patrick Romo RN - 04/29/2019 9:46 AM CST Received referral in [facility] workque from Dr. Milligan for cryptogenic stroke. Message to EP support to schedule consult. T ADVOCATE documented in this encounter Plan of Treatment Not on file documented as of this encounter Procedures Procedure Name Priority Date/Time Associated Diagnosis Comments MOBILE CONTINUOUS TELEMETRY Routine 08/26/2019 4:10 PM CDT Cryptogenic stroke ([facility]) documented in this encounter Results * [id number] MCT - Today (08/26/2019 4:10 PM CDT) 08/26/2019 4:10 PM CDT Narrative ESCRIPTION - 08/28/2019 10:09 PM CDT DATE: ??05/12/2019 - 06/11/2019 ORDERING PHYSICIAN: Norm Hopkins M.D. INTERPRETING PHYSICIAN: ??Norm Hopkins M.D. ?? INDICATION: ??Cerebral infarction, unspecified FINDINGS: Ms. Waite underwent continuous cardiac monitoring using a [employer]ian Mini PLUS device for a total duration of 30 days, starting on 05/12/19 through 06/11/19. ??Only 51% of the monitoring produced readable data. 1. Baseline rhythm: ??Normal sinus rhythm at 60 beats per minute. 2. Sinus node function: There is no evidence of sinus node dysfunction on this monitoring period. ??The minimum heart rate was 42 beats per minute with an average heart rate of 60 beats per minute and a maximum heart rate of 107 beats per minute. 3. AV conduction: ??There is no evidence of significant AV block or pauses longer than 3 seconds. 4. Atrial arrhythmias: ??No atrial fibrillation was seen on this monitoring. ??No other atrial arrhythmias noted. ??Rare PACs are seen. 5. Ventricular arrhythmias: ??No significant ventricular arrhythmias noted. Rare PVCs (less than 1%) are seen. 6. Symptoms: ??The patient sent in 32 transmissions with no symptoms recorded, all of which correlated with normal sinus rhythm. IMPRESSION: ?? No atrial fibrillation was seen on this monitoring period. ??No other significant atrial or ventricular arrhythmias were noted. CC: ??Huber Milligan M.D. D: ??08/26/2019 04:10 PM #[id number] T: ??08/27/2019 07:46 AM /TC Norm Hopkins MD CV VASCULAR ORDERABLES Fi nal Result ESCRIPTION documented in this encounter Visit Diagnoses Diagnosis Cryptogenic stroke (CMS/HCC HHS/HCC)- Primary Unspecified cerebral artery occlusion with cerebral infarction documented in this encounter Care Teams Manager Policy Relationship Specialty Start Date End Date Jasson Cueva MD [address] [place] [phone] PCP - General FAMILY PRACTICE 11/03/18 Huber Milligan MD [address] [place] [phone] Consulting Physician Vascular Neurology 04/30/19 Norm Hopkins MD [address] [place] [address] Consulting Physician CLINICAL CARDIAC ELECTROPHYSIOLOGY 04/30/19 documented as of this encounter
--- OUTSIDE RECORDS SUMMARY | 2024-03-19 18:40 | XMS_ITS | Encounter Summary ---
Author Organization [facility] Address [address] [place] [address]. [place] [address] [place] [address] Care Team Providers Care Hazardous Substances Engineer Name Role Phone Jasson Cueva MD Primary Care Provider Huber Milligan MD Unavailable [phone] Norm Hopkins MD Unavailable [phone] Encounter Details Date Type Department Care Team (Latest Contact Info) Description 09/02/2019 12:08 PM CDT - 09/02/2019 11:59 PM CDT Hospital Encounter [facility] [address] [place] [address] [place] [address] Norm Hopkins MD [address] [place] [address] Discharge Disposition: Home or Self Care (Routine Discharge) Social History Tobacco Use Types Packs/Day Years Used Date Smoking Tobacco: Former Cigarettes Smokeless Tobacco: Never Alcohol Use Standard Drinks/Week Comments Not Currently 0 (1 standard drink = 0.6 oz pur e alcohol) Comments No Sex and Gender Information Value Date Recorded Sex Assigned at Not on file Legal 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 1 11/11/2018 01/12/2021 aspirin 325 MG tablet Take 325 mg by mouth daily. 09/03/2019 atorvastatin 40 MG tabletIndications :Ischemic stroke ([facility]) Take 1 tablet (40 mg total) by mouth nightly at bedtime. 30 tablet 11 12/20/2018 09/03/2019 gabapentin 600 MG tabletIndications :Neuropathic pain Take 1 tablet (600 mg total) by mouth 3 (three) times daily. 90 tablet 11 06/23/2019 07/02/2020 hydrocodone-aceta minophen (NORCO) 7.5-325 MG tablet Take 1 tablet by mouth every 6 (six) hours as needed for Pain. 10 tablet 11/22/2018 09/03/2019 hydrocodone-aceta minophen 5-325 MG tablet Take 1-2 tablets by mouth every 6 (six) hours as needed for Pain. 40 tablet 11/27/2018 09/03/2019 metoprolol succinate ER 50 MG 24 hr tablet Take 1 tablet (50 mg total) by mouth daily. 2 11/08/2018 01/06/2023 oxyCODONE-acetami nophen 5-325 MG tablet Take 1 tablet by mouth every 6 (six) hours as needed for Pain. 40 tablet 12/06/2018 09/03/2019 documented as of this encounter Plan of Treatment Not on file documented as of this encounter Procedures Procedure Name Priority Date/Time Associated Diagnosis Comments CORONAVIRUS (COVID 19) Routine 09/02/2019 12:23 PM CDT Pre-operative laboratory examination documented in this encounter Results * CORONAVIRUS (COVID 19) [facility] (09/02/2019 12:23 PM CDT) CORONAVIRUS SARS COV 2 PCR (RESP) NOT DETECTED NOT DETECTED 09/04/2019 6:24 PM CDT [facility] Comment: A Not Detected (negative) test result [...] providers and patients using the following websites: https://www.Adspring[facility].afterBOT/home/Covid-19/HCP/NAAT/fact-sheet2 https://www.[facility].afterBOT/home/Covid-19/Patients/NAAT/ fact-sheet2 This test has been authorized by the FDA under an Emergency Use Authorization (EUA) for use by authorized laboratories. Due to the current public health emergency, [facility] is receiving a high volume of samples [...] about COVID-19 can be found at the [facility] website: www.[facility]ocomail/Covid19. Test performed at [facility] [id number] [place] [address] ??[phone] Director: GABRIELLA MONROY DO,MPH NASOPHARYNGEAL SWAB / Unknown 09/02/2019 12:23 PM CDT Norm Hopkins MD MICROBIOLOGY - GENERAL OR DERABLES Final Result [facility] [address] [address] documented in this encounter Visit Diagnoses Diagnosis Pre-operative laboratory examination Pre-procedural laboratory examination documented in this encounter Additional Health Concerns Infection Onset Date Last Indicated Resolved Time COVID-19 Rule Out 09/02/2019 09/02/2019 09/04/2019 6:25 PM CDT documented as of this encounter Care Teams Hazardous Substances Engineer Relationship Specialty Start Date End Date Jasson Cueva MD [address] [place] [phone] PCP - General FAMILY PRACTICE 11/03/18 Huber Milligan MD [address] [place] [phone] Consulting Physician Vascular Neurology 04/30/19 Norm Hopkins MD [address] [place] [id number] Consulting Physician CLINICAL CARDIAC ELECTROPHYSIOLOGY 04/30/19 documented as of this encounter
--- OUTSIDE RECORDS SUMMARY | 2024-03-19 18:40 | XMS_ITS | Encounter Summary ---
Author Organization [facility] Address [address] [place] [address]. [place], [place] [id number] [place] [id number] Care Team Providers Care Supervisor Inspection Room Name Role Phone Jasson Cueva MD Primary Care Provider [phone] Huber Milligan MD Unavailable [phone] Norm Hopkins MD Unavailable [phone] Encounter Details Date Type Department Care Team (Latest Contact Info) Description 09/02/2019 Travel Social History Tobacco Use Types Packs/Day Years Used Date Smoking Tobacco: Former Cigarettes Smokeless Tobacco: Never Alcohol Use Standard Drinks/Week Comments Not Currently 0 (1 standard drink = 0.6 oz pur e alcohol) Comments No Sex and Gender Information Value Date Recorded Sex Assigned at Not on file Legal 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 CONTRACT PARALEGAL Gender Identity Not on file Sexual Orientation [...] Date Author Status No 11/26/2018 12:08 PM JULYT Lynda Saba RN Active documented in this encounter Plan of Treatment Not on file documented as of this encounter Visit Diagnoses Not on filedocumented in this encounter Additional Health Concerns Infection Onset Date Last Indicated Resolved Time COVID-19 Rule Out 09/02/2019 09/02/2019 09/04/2019 6:25 PM CDT documented as of this encounter Care Teams Supervisor Inspection Room Relationship Specialty Start Date End Date Jasson Cueva MD [address] [place] [phone] PCP - General FAMILY PRACTICE 11/03/18 Huber Milligan MD [address] [place] [phone] Consulting Physician Vascular Neurology 04/30/19 Norm Hopkins MD [address] [place] [phone] Consulting Physician CLINICAL CARDIAC ELECTROPHYSIOLOGY 04/30/19 documented as of this encounter
--- OUTSIDE RECORDS SUMMARY | 2024-03-19 18:40 | XMS_ITS | Encounter Summary ---
Author Organization [facility] Address [address] [place] [address]. [place], [place] [address] [place] [id number] Care Team Providers Care Patrol Supervisor Name Role Phone Jasson Cueva MD Primary Care Provider Huber Milligan MD Unavailable [phone] Norm Hopkins MD Unavailable [phone] Reason for Visit * Reason Comments Fall Encounter Details Date Type Department Care Team (Late st Contact Info) Description 03/04/2020 11:44 AM COMMUNICATIONS TECH - 03/04/2020 2:10 PM COMMUNICATIONS TECH [facility] [address] [place] [address] [place] [address] Moody Gill MD [address] [place] [address] Fall Discharge Disposition: Home or Self Care (Routine Discharge) Social History Tobacco Use Types Packs/Day Years Used Date Smoking Tobacco: Former Cigarettes Smokeless Tobacco: Never Alcohol Use Standard Drinks/Week Comments Not Currently 0 (1 standard drink = 0.6 oz pur e alcohol) Comments No Sex and Gender Information Value Date Recorded Sex Assigned at Not on file Legal 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 COMMUNICATIONS TECH Gender Identity Not on file Sexual Orientation Not on file COVID-19 Exposure Response Date Recorded In the last month, have you been in contact with someone who was confirmed or suspected to have Coronavirus / COVID-19? No / Unsure 03/04/2020 11:55 AM COMMUNICATIONS TECH documented as of this encounter Last Filed Vital Signs Vital Sign Reading Time Taken Comments Blood Pressure 143/75 03/04/2020 1:31 PM COMMUNICATIONS TECH Pulse 54 03/04/2020 1:31 PM COMMUNICATIONS TECH Temperature 36.2 ??C (97.2 ??F) 03/04/2020 11:[address] Respiratory Rate 18 03/04/2020 11:51 AM COMMUNICATIONS TECH Oxygen Saturation 92% 03/04/2020 1:31 PM COMMUNICATIONS TECH Inhaled Oxygen Concentration - - Weight 68 kg (150 lb) 03/04/2020 11:51 AM COMMUNICATIONS TECH Height 170.2 cm (5' 7 ) 03/04/2020 11:51 AM COMMUNICATIONS TECH Body Mass Index 23.49 03/04/2020 11:51 AM COMMUNICATIONS TECH documented in this encounter Functional Status * [...] cannot be sent through Care Everywhere. * Bruised Rib Discharge Instructions (Citizen [place]) * Contusion Discharge Instructions (Citizen [place]) * Neck Sprain Discharge Instructions (Citizen Of [place]) documented in this encounter Medications at Time [...] metoprolol tartrate 50 MG tablet 01/16/2020 01/12/2021 documented as of this encounter ED Notes * Moody Gill MD - 03/04/2020 2:10 PM CST Chief Complaint Chief Complaint Patient presents with ??? Fall History of Present Illness 69-year-old female who fell at home last night when she missed a step. Patient is now complaining of right-sided pain. Patient says the pain is from the right shoulder to the right knee. Patient denies head injury denies loss of consciousness. Patient denies vomiting denies fever denies chills. Pain is moderate and constant. Does not radiate to the left side. Medical History ALLERGIES: No Known Allergies MEDICATIONS: Prior to Admission medications Medication Sig Start Date End Date Taking? Authorizing Provider amlodipine 10 MG tablet Take 10 mg by mouth daily. 11/11/18 Yes Doc Abstract aspirin EC 81 MG tablet Take 81 mg by mouth daily. Yes Doc Abstract gabapentin 600 MG tablet Take 1 tablet (600 mg total) by mouth 3 (three) times daily. 06/23/19 Yes Huber Milligan MD metoprolol succinate ER 50 MG 24 hr tablet Take 50 mg by mouth daily. 11/08/18 Yes Doc Abstract vitamin D3, cholecalciferol, 5000 UNITS capsule Take 1 capsule by mouth daily. Yes Doc Abstract PAST MEDICAL HISTORY: Past Medical History: Diagnosis Date ??? Depression ??? Displaced fracture of proximal end of right humerus 11/06/2018 ??? Hypertension ??? Ischemic stroke (CMS/HCC) PAST SURGICAL HISTORY: Past Surgical History: Procedure [...] No Review of Systems Review of Systems Constitutional: Negative for chills and fever. HENT: Negative for voice change. Respiratory: Negative for wheezing. Cardiovascular: Negative for leg swelling. Pain in the right rib Gastrointestinal: Negative for abdominal pain. Skin: Negative for color change. Neurological: Negative for speech difficulty. Psychiatric/Behavioral: Negative for agitation. All other systems reviewed and are negative. Physical Exam Filed Vitals: 03/04/20 1151 03/04/20 1200 03/04/20 1245 03/04/20 1331 BP: 146/79 126/78 127/74 143/75 Pulse: 60 54 Resp: 18 Temp: 97.2 ??F (36.2 ??C) TempSrc: Temporal SpO2: 97% 95% 92% Weight: 68 kg (150 lb) Height: 5' 7 (1.702 m) Physical Exam Constitutional: Appearance: She is well-developed. HENT: Head: Atraumatic. Eyes: Extraocular Movements: Extraocular movements intact. Pupils: Pupils are equal, round, and reactive to light. Neck: Musculoskeletal: Normal range of motion. Muscular tenderness present. Comments: Normal inspection, mild tenderness posteriorly Cardiovascular: Rate and Rhythm: Normal rate and regular rhythm. Pulmonary: Effort: No respiratory distress. Breath sounds: Normal breath sounds. No stridor. No wheezing. Comments: Tender in the right upper ribs and right lateral ribs Chest: Chest wall: Tenderness present. Abdominal: Palpations: There is no mass. Tenderness: There is no abdominal tenderness. There is no right CVA tenderness, left CVA tendernessor rebound. Musculoskeletal: Normal range of motion. Comments: Right hip-mild tenderness to abduction Right knee nontender Back-no spinous process tenderness Skin: General: Skin is dry. Neurological: General: No focal deficit present. Mental Status: She is alert. Cranial Nerves: No cranial nerve deficit. Sensory: No sensory deficit. Motor: No weakness. Comments: GCS score 15 Psychiatric: Mood and Affect: Mood normal. Diagnostic Studies / Procedures ELECTROCARDIOGRAMS: No results found for this visit on 03/04/20. LABORATORY STUDIES: No results found for this visit on 03/04/20. IMAGING STUDIES XR CERV SPINE 3V Final Result by User, [id number] (03/04 9533) 03/04/2020, 1310 hours. HISTORY: Fell last night. Pain down right side and in the neck. EXAM: AP, lateral and odontoid views cervical spine. No comparison. FINDINGS: Degenerative spondyloarthropathy cervical spine with narrowing of the C3-C4, the C4-C5 and mild narrowing of the C5-C6 and C6-C7 disc. Straightened cervical lordosis, positional versus muscle spasm. Moderate size anterior spurring from the cervical vertebral bodies. No definite fracture, however if there is strong clinical concern of fracture or may need to consider CT for additional evaluation particularly as the C7 vertebra is not well seen on the lateral projection. No prevertebral soft tissue swelling. No gross bone destruction. Mild scoliosis with the upper thoracic curvature the spine convex toward the left. Previous reverse arthroplasty right glenohumeral joint. Cardiac device projected over the upper left side of the heart. 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 Straightened cervical lordosis. Detail slightly limited. Interpreted By: Carmelo Coleman MD, 03/04/2020 1:39 PM XR SHOULDER RT MIN 2V Final Result by User, [email or web address] (03/04 1330) Date: 03/04/2020 1:18 PM Exam: XR SHOULDER RT MIN 2V Comparison: Right shoulder radiography dated 12/30/2018. Technique: 3 views of the right shoulder. History: Fall with injury last night. Right shoulder pain. Findings: There is a reverse right shoulder arthroplasty that appears well seated. There is no periprosthetic fracture. The distal right clavicle and AC joint appear intact. There is no widening of the coracoclavicular distance. The scapula appears intact. There is no soft tissue abnormality. Partially visualized is mild atelectasis or infiltrate in the right lung base. Impression: Intact right shoulder arthroplasty. No acute osseous abnormality of the right shoulder. Interpreted By: Jeovanny Thacker Jr, MD, 03/04/2020 1:29 PM XR RIBS RT+PA CHEST Final Result by User, [email or web address] (03/04 1341) Date: 03/04/2020 1:18 PM Exam: XR RIBS RT+PA CHEST Comparison: Chest and right rib radiography dated 09/20/2015. Technique: Frontal view of the chest. 3 additional projections of the right ribs. History: Status post fall. Right rib pain. Findings: There is a loop recorder projecting over the left chest. The cardiac silhouette is mildly enlarged. The pulmonary vascularity is within normal limits. There is minimal atelectasis in the right lung base. The lungs are otherwise clear. There are no effusions. There is no pneumothorax. No definite right rib fractures are identified. However, the lower right ribs are suboptimally visualized. There is a right shoulder arthroplasty in good position. Impression: 1. Mild cardiomegaly and minimal right basilar atelectasis, but no acute cardiopulmonary disease process. 2. No definite right rib fracture. If suspicion persists, would consider CT correlation. Interpreted By: Jeovanny Thacker Jr, MD, 03/04/2020 1:34 PM XR HIP RT 2V Final Result by User, [email or web address] (03/04 1335) Date: 03/04/2020 1:18 PM Exam: XR HIP RT 2V Comparison: Pelvic and hip radiography dated 09/20/2015. Technique: 2 views of the right hip. History: Status post fall. Pain. Findings: There is a right hip dynamic compression screw fixation unchanged from the prior exam. The hardware appears intact. There are old healed fractures the right pubic rami. The right iliac wing appears intact. There is no soft tissue abnormality. Impression: Intact right hip hardware. No acute osseous abnormality. Interpreted By: Jeovanny Thacker Jr, MD, 03/04/2020 1:32 PM ED Course / Medical Decision Making 1:50 PM discussed with patient and son that x-ray is not 100% accurate, at this time patient and son refuse further radiological studies including CAT scans, patient is able to bear weight on the right leg therefore suspicion for occult hip fracture is low MDM Number of Diagnoses or Management Options Contusion of rib on right side, initial encounter: new and requires workup Contusion of right hip, initial encounter: new and requires workup Neck sprain, initial encounter: new and requires workup Amount and/or Complexity of Data Reviewed Tests in the radiology section of CPT??: reviewed Risk of Complications, Morbidity, and/or Mortality Presenting problems: moderate Diagnostic procedures: moderate Management options: low Patient Progress Patient progress: stable Clinical Impression Contusion of rib on right side, initial encounter (Primary) Contusion of right hip, initial encounter Neck sprain, initial encounter Disposition: Discharge Moody Gill MD 03/05/20 0113 UNICATIONS TECH * Suzy Marin RN - 03/04/2020 12:31 PM CST Unanswered calls x2 to radiology UNICATIONS TECH * Verna Singh RN - 03/04/2020 11:50 AM CST Pt here with rt side pain after falling last night. Pt states she missed a step and landed on rightside. Denies LOC and was able to get self up without assistance - noticed pain this morning upon waking. Difficult assess actual pain location - Pt c/o pain with palpation to rt shoulder, rt ribs, and right hip. States she has spasms at times. Has not attempted OTC pain meds. UNICATIONS TECH documented in this encounter Plan of Treatment Not on file documented as of this encounter Procedures Procedure Name Priority Date/Time Associated Diagnosis Comments XR CERV SPINE 3V STAT 03/04/2020 1:20 PM COMMUNICATIONS TECH XR SHOULDER RT MIN 2V STAT 03/04/2020 1:18 PM COMMUNICATIONS TECH XR RIBS RT+PA CHEST STAT 03/04/2020 1 :18 PM COMMUNICATIONS TECH XR HIP RT 2V STAT 03/04/2020 1:18 PM COMMUNICATIONS TECH documented in this encounter Results * XR CERV SPINE 3V (03/04/2020 1:20 PM COMMUNICATIONS TECH) Anatomical Region Laterality Modality Spine Radiographic Sharon ging 03/04/2020 1:39 PM COMMUNICATIONS TECH Impressions 03/04/2020 1:41 PM COMMUNICATIONS TECH IMPRESSION: 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 Straightened cervical lordosis. Detail slightly limited. Interpreted By: Carmelo Coleman MD, 03/04/2020 1:39 PM Narrative 03/04/2020 1:41 PM COMMUNICATIONS TECH 03/04/2020, 1310 hours. HISTORY: Fell last night. Pain down right side and in the neck. EXAM: AP, lateral and odontoid views cervical spine. No comparison. FINDINGS: Degenerative spondyloarthropathy cervical spine with narrowing of the C3-C4, the C4-C5 and mild narrowing of the C5-C6 and C6-C7 disc. Straightened cervical lordosis, positional versus muscle spasm. Moderate size anterior spurring from the cervical vertebral bodies. No definite fracture, however if there is strong clinical concern of fracture or may need to consider CT for additional evaluation particularly as the C7 vertebra is not well seen on the lateral projection. No prevertebral soft tissue swelling. No gross bone destruction. Mild scoliosis with the upper thoracic curvature the spine convex toward the left. Previous reverse arthroplasty right glenohumeral joint. Cardiac device projected over the upper left side of the heart. Procedure Note Carmelo Coleman MD - 03/04/2020 03/04/2020, 1310 hours. HISTORY: Fell last night. Pain down right side and in the neck. EXAM: AP, lateral and odontoid views cervical spine. No comparison. FINDINGS: Degenerative spondyloarthropathy cervical spine with narrowingof the C3-C4, the C4-C5 and mild narrowing of the C5-C6 and C6-C7 disc. Straightened cervical lordosis, positional versus muscle spasm. Moderate size anterior spurring from the cervical vertebral bodies. No definite fracture, however if there is strong clinical concern of fracture or may need to consider CT for additional evaluation particularly as the C7 vertebra is not well seen on the lateral projection. No prevertebralsoft tissue swelling. No gross bone destruction. Mild scoliosis with theupper thoracic curvature the spine convex toward the left. Previous reverse arthroplasty right glenohumeral joint. Cardiac device projected over the upper left side of the heart. IMPRESSION: Degenerative spondyloarthropathy is cervical spine with prominentanterior hypertrophic spurring. Straightened cervical lordosis. Detail slightly limited. Interpreted By: Carmelo Coleman MD, 03/04/2020 1:39 PM us Moody Gill MD GENERAL IMAGING Final Result * XR HIP RT 2V (03/04/2020 1:18 PM COMMUNICATIONS TECH) Anatomical Region Laterality Modality Hip Radiographic Sharon ging 03/04/2020 1:32 PM COMMUNICATIONS TECH Impressions 03/04/2020 1:34 PM COMMUNICATIONS TECH Impression: Intact right hip hardware. No acute osseous abnormality. Interpreted By: Jeovanny Thacker Jr, MD, 03/04/2020 1:32 PM Narrative 03/04/2020 1:34 PM COMMUNICATIONS TECH Date: 03/04/2020 1:18 PM Exam: XR HIP RT 2V Comparison: Pelvic and hip radiography dated 09/20/2015. Technique: 2 views of the right hip. History: Status post fall. Pain. Findings: There is a right hip dynamic compression screw fixation unchanged from the prior exam. The hardware appears intact. There are old healed fractures the right pubic rami. The right iliac wing appears intact. There is no soft tissue abnormality. Procedure Note Jeovanny Thacker MD - 03/04/2020 Date: 03/04/2020 1:18 PM Exam: XR HIP RT 2V Comparison: Pelvic and hip radiography dated 09/20/2015. Technique: 2 views of the right hip. History: Status post fall. Pain. Findings: There is a right hip dynamic compression screw fixationunchanged from the prior exam. The hardware appears intact. There are old healed fractures the right pubic rami. The right iliac wing appears intact.There is no soft tissue abnormality. Impression: Intact right hip hardware. No acute osseous abnormality. Interpreted By: Jeovanny Thacker Jr, MD, 03/04/2020 1:32 PM Moody Gill MD GENERAL IMAGING Final Result * XR RIBS RT+PA CHEST (03/04/2020 1:18 PM COMMUNICATIONS TECH) Anatomical Region Laterality Modality Chest Radiographic Sharon ging 03/04/2020 1:34 PM COMMUNICATIONS TECH Impressions 03/04/2020 1:40 PM COMMUNICATIONS TECH Impression: 1. Mild cardiomegaly and minimal right basilar atelectasis, but no acute cardiopulmonary disease process. 2. No definite right rib fracture. If suspicion persists, would consider CT correlation. Interpreted By: Jeovanny Thacker Jr, MD, 03/04/2020 1:34 PM Narrative 03/04/2020 1:40 PM COMMUNICATIONS TECH Date: 03/04/2020 1:18 PM Exam: XR RIBS RT+PA CHEST Comparison: Chest and right rib radiography dated 09/20/2015. Technique: Frontal view of the chest. 3 additional projections of the right ribs. History: Status post fall. Right rib pain. Findings: There is a loop recorder projecting over the left chest. The cardiac silhouette is mildly enlarged. The pulmonary vascularity is within normal limits. There is minimal atelectasis in the right lung base. The lungs are otherwise clear. There are no effusions. There is no pneumothorax. No definite right rib fractures are identified. However, the lower right ribs are suboptimally visualized. There is a right shoulder arthroplasty in good position. Procedure Note Jeovanny Thacker MD - 03/04/2020 Date: 03/04/2020 1:18 PM Exam: XR RIBS RT+PA CHEST Comparison: Chest and right rib radiography dated 09/20/2015. Technique: Frontal view of the chest. 3 additional projections of theright ribs. History: Status post fall. Right rib pain. Findings: There is a loop recorder projecting over the left chest. The cardiac silhouette is mildly enlarged. The pulmonary vascularity iswithin normal limits. There is minimal atelectasis in the right lung base. The lungs are otherwise clear. There are no effusions. There is no pneumothorax. No definite right rib fractures are identified. However,the lower right ribs are suboptimally visualized. There is a right shoulder arthroplasty in good position. Impression: 1. Mild cardiomegaly and minimal right basilar atelectasis, but no acute cardiopulmonary disease process. 2. No definite right rib fracture. If suspicion persists, would considerCT correlation. Interpreted By: Jeovanny Thacker Jr, MD, 03/04/2020 1:34 PM Moody Gill MD GENERAL IMAGING Final Result * XR SHOULDER RT MIN 2V (03/04/2020 1:18 PM COMMUNICATIONS TECH) Anatomical Region Laterality Modality Shoulder Radiographic Sharon ging 03/04/2020 1:29 PM COMMUNICATIONS TECH Impressions 03/04/2020 1:30 PM COMMUNICATIONS TECH Impression: Intact right shoulder arthroplasty. No acute osseous abnormality of the right shoulder. Interpreted By: Jeovanny Thacker Jr, MD, 03/04/2020 1:29 PM Narrative 03/04/2020 1:30 PM COMMUNICATIONS TECH Date: 03/04/2020 1:18 PM Exam: XR SHOULDER RT MIN 2V Comparison: Right shoulder radiography dated 12/30/2018. Technique: 3 views of the right shoulder. History: Fall with injury last night. Right shoulder pain. Findings: There is a reverse right shoulder arthroplasty that appears well seated. There is no periprosthetic fracture. The distal right clavicle and AC joint appear intact. There is no widening of the coracoclavicular distance. The scapula appears intact. There is no soft tissue abnormality. Partially visualized is mild atelectasis or infiltrate in the right lung base. Procedure Note Jeovanny Thacker MD - 03/04/2020 Date: 03/04/2020 1:18 PM Exam: XR SHOULDER RT MIN 2V Comparison: Right shoulder radiography dated 12/30/2018. Technique: 3 views of the right shoulder. History: Fall with injury last night. Right shoulder pain. Findings: There is a reverse right shoulder arthroplasty that appearswell seated. There is no periprosthetic fracture. The distal right clavicleand AC joint appear intact. There is no widening of the coracoclavicular distance. The scapula appears intact. There is no soft tissueabnormality. Partially visualized is mild atelectasis or infiltrate in the right lung base. Impression: Intact right shoulder arthroplasty. No acute osseous abnormality of the right shoulder. Interpreted By: Jeovanny Thacker Jr, MD, 03/04/2020 1:29 PM Moody Gill MD GENERAL IMAGING Final Result documented in this encounter Visit Diagnoses Diagnosis Contusion of rib on right side, initial encounter- Primary Contusion of right hip, initial encounter Neck sprain, initial encounter documented in this encounter Care Teams Patrol Supervisor Relationship Specialty Start Date End Date Jasson Cueva MD [address] [place] [phone] PCP - General FAMILY PRACTICE 11/03/18 Huber Milligan MD [address] [place] [phone] Consulting Physician Vascular Neurology 04/30/19 Norm Hopkins MD [address] [place] [phone] Consulting Physician CLINICAL CARDIAC ELECTROPHYSIOLOGY 04/30/19 documented as of this encounter
--- OUTSIDE RECORDS SUMMARY | 2024-03-19 18:40 | XMS_ITS | Encounter Summary ---
Author Organization [facility] Address [address] [place] [address]. [place], [place] [id number] [place] [id number] Care Team Providers Care Manager Drug Safety Name Role Phone Jasson Cueva MD Primary Care Provider [phone] Huber Milligan MD Unavailable [phone] Norm Hopkins MD Unavailable [phone] Encounter Details Date Type Department Care Team (Latest Contact Info) Description 09/05/2019 Travel Social History Tobacco Use Types Packs/Day Years Used Date Smoking Tobacco: Former Cigarettes Smokeless Tobacco: Never Alcohol Use Standard Drinks/Week Comments Not Currently 0 (1 standard drink = 0.6 oz pur e alcohol) Comments No Sex and Gender Information Value Date Recorded Sex Assigned at Not on file Legal 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 STORE MGR Gender Identity Not on file Sexual Orientation [...] on filedocumented in this encounter Care Teams Manager Drug Safety Relationship Specialty Start Date End Date Jasson Cueva MD [address] [place] [phone] PCP - General FAMILY PRACTICE 11/03/18 Huber Milligan MD [address] [place] [phone] Consulting Physician Vascular Neurology 04/30/19 Norm Hopkins MD [address] [place] [phone] Consulting Physician CLINICAL CARDIAC ELECTROPHYSIOLOGY 04/30/19 documented as of this encounter
--- OUTSIDE RECORDS SUMMARY | 2024-03-19 18:41 | XMS_ITS | Encounter Summary ---
Author Organization [facility] Address [address] [place] [address]. [place] [address] [place] [address] Care Team Providers Care Data Review Specialist Name Role Phone Jasson Cueva MD Primary Care Provider Encounter Details Date Type Department Care Team (Late st Contact Info) Description 12/09/2018 Orders Only [facility] Pre Access Team [address] [place], [place] [phone] Cal Dupree MD [address] [place] [address] Social History Tobacco Use Types Packs/Day Years Used Date Smoking Tobacco: Every Day Cigarettes Smokeless Tobacco: Never Alcohol Use Standard Drinks/Week Comments Yes 0 (1 standard drink = 0.6 oz pur e alcohol) Comments No Sex and Gender Information Value Date Recorded Sex Assigned at Not on file 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
--- OUTSIDE RECORDS SUMMARY | 2024-03-19 18:41 | XMS_ITS | Encounter Summary ---
Author Organization [facility] [place] Address [address] [place] [address]. [place] [address] Care Team Providers Care Mulling Machine Operator Name Role Phone Jasson Valdivia MD Primary Care Provider Reason for Referral * (Routine) - Canceled Specialty Diagnoses / Procedures Referred By Jayce coronado Referred To Contact Procedures Rehab consult (OT) to evaluate and treat Moises March MD [address] [place] [id number] Phone: tel: fax: Referral ID Status Reason Start Date Expiration Date V isits Requested Visits Authorized [id number] Canceled 11/25/2018 12/26/2019 1 1 * (Routine) - Canceled Specialty Diagnoses / Procedures Referred By Jayce coronado Referred To Contact Procedures Rehab consult (PT) to evaluate and treat Moises March MD [address] [place] [id number] Phone: tel: fax: Referral ID Status Reason Start Date Expiration Date V isits Requested Visits Authorized [id number] Canceled 11/25/2018 12/26/2019 1 1 Reason for Visit * Auth/Cert Specialty Diagnoses / Procedures Referred By Jayce coronado Referred To Contact Diagnoses [id number] Procedures ARTHROPLASTY SHOULDER TOTAL REVERSENate notified Referral ID Status Reason Start Date Expiration Date Visits Re quested Visits Authorized [id number] 1 1 Encounter Details Date Type Department Care Team (Latest Contact Info) Description 11/25/2018 1:11 PM CDT - 11/27/2018 3:40 PM CDT Hospital Encounter 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 Gender Identity Not on file Sexual Orientation Not on file documented as of this encounter Last Filed Vital Signs Vital Sign Reading Time Taken Comments Blood Pressure 136/55 11/27/2018 8:20 AM CDT Pulse 73 11/27/2018 8:20 AM CDT Temperature 36.8 ??C (98.3 ??F) 11/27/2018 5:00 AM CD T Respiratory Rate 16 11/27/2018 5:00 AM CDT Oxygen Saturation 98% 11/27/2018 5:00 AM CDT Inhaled Oxygen Concentration - - Weight 59 kg (130 lb) 11/25/2018 6:30 PM CDT Height 170.2 cm (5' 7 ) 11/25/2018 6:30 PM CDT Body Mass Index 20.36 11/25/2018 6:30 PM CDT documented in this encounter Functional Status * Question Answer Date of Assessment Author Status Do you have serious difficulty walking or climbing stairs? No 11/26/2018 12:08 PM CDT Jennifer Saba RN Active * Question Answer Date of Assessment Author Status Do you have difficulty dressing or bathing? No 11/26/2018 12:08 PM CDT Chuy Saba RN Active Because of a physical, mental, or emotional condition, do you have difficulty doing errands alone such as visiting a doctor's office or shopping? No 11/26/2018 12:08 PM JULYT Jennifer Saba RN Active * RETIRED Are you deaf [...] difficulty concentrating, remembering, or making decisions? No 11/26/2018 12:08 PM Lynda Linder RN Active * Because of a physical, mental, or emotional condition, do you have serious difficulty concentrating, remembering, or making decisions? Answer Entry Date Author Status No 11/26/2018 12:08 PM Lynda Linder RN Active documented in this encounter Discharge Summaries * Moises March MD - 11/27/2018 3:40 PM CDT Physician Discharge Summary Patient ID: Trisha Waite [id number] 68-year-old 1950 Primary Care Physician: JASSON VALDIVIA MD Admit date: 11/25/2018 Expected Discharge Date: 11/27/2018 Admitting Physician: Moises March MD Discharge Physician: Admission Diagnoses: S42.201A Closed fracture of right proximal humerus Discharge Diagnoses: Same Admission Condition: good Discharged Condition: good Indication for Admission: Patient is a 68-year-old female who fell suffering a four-part proximal humerus fracture on the right with displacement and rotation fragments. I recommended reverse total shoulder arthroplasty to improve function of the patient elects to proceed Hospital Course: After elective right reverse total shoulder arthroplasty the patient was admitted given routine infection and DVT prophylaxis. She was mobilized with therapy and on postop day 2 dressings removed demonstrating no erythema or drainage associated with her incision. She was subsequently discharged home with instructions for physical therapy as well as follow-up with my office. Medication was also prescribed for pain Consults: none Code Status: No Order Procedures: Procedures (From admission, onward) HEMOGLOBIN AND HEMATOCRIT Routine Referrals: No orders of the defined types were placed in this encounter. Significant Diagnostic Studies: Treatments: surgery: Right reverse total shoulder arthroplasty Discharge Exam: No erythema or drainage associate with her incision and she is neurovascularly intact. She does have a mild fluctuant mass at the operative site consistent with hematoma and ecchymosis is appreciatedat the operative site also Disposition: Home or Self Care (Routine Discharge) Patient Instructions: Discharge Medication List as of 11/27/2018 2:59 PM START taking these medications Details hydrocodone-acetaminophen 5-325 MG tablet Take 1-2 tablets by mouth every 6 (six) hours as needed for Pain., Starting Sun11/27/2018, Print CONTINUE these medications which have NOT CHANGED Details amlodipine 10 MG tablet Starting Sun11/11/2018, Historical Med hydrocodone-acetaminophen (NORCO) 7.5-325 MG tablet Take 1 tablet by mouth every 6 (six) hours as needed for Pain., Starting Sun11/22/2018, Print metoprolol succinate ER 50 MG 24 hr tablet Starting Sun11/08/2018, Historical Med Activity: Okay for activities of daily living. No abduction higher than shoulder level Diet: regular diet Wound Care: as directed Follow-up with Dr. march in 10-14 days. Signed: MOISES MARCH MD 11/28/2018 11:07 AM documented in this encounter Discharge Instructions * Discharge Instructions* Jessica Hill, CHIEF QUALITY OFFICER-BC - 11/27/2018 8:10 AM CDT Images from the original note were not included. Keep incision open to air No lifting greater than a coffee mug May shower No weight bearing to RIGHT arm May perform activities of daily living as instructed by physical therapy Continue home exercises as instructed by outpatient physical therapy until you are seen in outpatient physical therapy Ice to RIGHT shoulder as needed for pain and swelling. Patient Education Shoulder Replacement Discharge Instructions About this topic Three bones make up your shoulder joint. These are the upper arm bone, the shoulder blade, and the collarbone. The shoulder is a ball and socket joint. The ball part of the joint is the top part of your upper arm bone. The socket part of your joint is a cup shaped indentation in your shoulderblade. A smooth tissue called cartilage lines the ends of the bones. This helps the joint glide easier. Four muscles called the rotator cuff surround the joint. They help with movement and stability.With normal wear and tear or other problems, the cartilage can wear down. Then, the joint can become damaged. This can lead to pain and loss of motion. Surgery may be done when PT and drugs for pain have not helped and the problem gets worse. In a shoulder replacement surgery, the ball or both the ball and the socket are replaced with man-made parts. What care is needed at home? ?? Ask your doctor what you need to do when you go home. Make sure you ask questions if you do not understand what the doctor says. This way you will know what you need to do. ?? Place an ice pack or a bag of frozen peas wrapped in a towel over the painful part. Never put ice right on the skin. Do not leave the ice on more than 10 to 15 minutes at a time. Do this a few times a day. ?? Prop your arm on pillows. Keep it raised above the level of your heart to help with swelling. ?? Wear your sling to keep the shoulder supported. Your doctor will tell you for how long you need to wear it. ?? Do the exercises that your physical therapist shows you. It is important to do these to get fullrecovery of your shoulder. Take drugs for pain about 45 minutes before doing the exercises. ?? Talk to your doctor about how to care for your cut site. Ask your doctor about: ? When you should change your bandages ? When you may take a bath or shower ? If you need to be careful with lifting things over 10 pounds (4.5 kg) ? When you may go back to your normal activities like work, driving, or sex ?? Be sure to wash your hands before and after touching your wound or dressing. What follow-up care is needed? ?? Your doctor may ask you to make visits to the office to check on your progress. Be sure to keep these visits. ?? If you have stitches or vitor, you will need to have them taken out. Your doctor will often want to do this in 1 to 2 weeks. ?? You may also need to see a physical therapist (PT). The PT will teach you exercises to help you get back your strength and motion. What drugs may be needed? The doctor may order drugs to: ?? Help with pain and swelling ?? Prevent infection Will physical activity be limited? You will need to wear a sling for 2 to 6 weeks after surgery. You will also need to go to PT for the next 4 to 6 weeks. It may take 2 to 4 months before you will be able to return to your normal daily activities. Your doctor may suggest that you avoid activities that can have heavy impact on or stress the joint. You may need to avoid things like contact sports, overhead throwing sports, chopping wood, and heavy lifting. Ask your doctor if it is safe to swim or play tennis or golf. What problems could happen? ?? Infection ?? Bleeding ?? Ongoing pain and stiffness ?? Nerve or blood vessel injury ?? Hardware failure or loosening of hardware ?? Allergic reaction to metal plates and screws What can be done to prevent this health problem? Stay active and work out to keep your muscles strong and flexible. When do I need to call the doctor? ?? Signs of infection. These include a fever of 100.4??F (38??C) or higher, chills, wound that willnot heal. ?? Signs of wound infection. These include swelling, redness, warmth around the wound; too much pain when touched; yellowish, greenish, or bloody discharge; foul smell coming from the cut site; cut site opens up. ?? Increased numbness or tingling in the arm and hand ?? Hand feels cold or looks white or blue in color ?? You are not feeling better in 2 to 3 days or you are feeling worse Teach Back: Helping You Understand The Teach Back Method helps you understand the information we are giving you. The idea is simple. After talking with the staff, tell them in your own words what you were just told. This helps to makesure the staff has covered each thing clearly. It also helps to explain things that may have been abit confusing. Before going home, make sure you are able to do these: ?? I can tell you about my procedure. ?? I can tell you what may help ease my pain. ?? I can tell you how to care for my cut site. ?? I can tell you what I will do if I have more pain, numbness, or tingling, or my fingers are coolor blue. Where can I learn more? [employer] http://orthoinfo.aaos.org/topic.cfm?ozhxc=F28746 Last Reviewed Date 2018-01-22 Consumer Information Use and Disclaimer This information [...] is right for you. Copyright Copyright ?? 2019 [employer] and its affiliates and/or licensors. All rights reserved. documented in this encounter Medications at Time of Discharge amlodipine 10 MG tablet Take 10 mg by mouth daily. 1 11/11/2018 01/12/2021 hydrocodone-aceta minophen (NORCO) 7.5-325 MG tablet Take [...] 11/08/2018 01/06/2023 documented as of this encounter Progress Notes * Taylor Martinez PTA - 11/27/2018 3:43 PM CDT Pt not seen this afternoon due to going home and feels like she doesn't need to work with therapy since she is leaving. * Lynda Ibarra, JEANNE - 11/27/2018 1:05 PM CDT CLINICAL DIETITIAN ASSESSMENT NUTRITION ASSESSMENT RD completing an initial assessment secondary to low BMI/age. Initial History: Patient is a 68-year-old female admitted secondary to closed fracture of right proximal humerus. Pt POD #2 s/p right reverse total shoulder arthroplasty. Past Medical History: Diagnosis Date ??? Depression ??? Displaced fracture of proximal end of right humerus 11/06/2018 Weight history: Per pt, her weight has been stable at 130 lbs. Diet history: Pt denies nausea, vomiting, diarrhea, constipation. She reports a good appetite. Chewing/swallowing problems: No per pt Food allergies/intolerances: NKFA Cultural/Samaritan food preferences: None noted Neuro: Alert and oriented Edema: None per nursing Skin: right shoulder surgical incision- clean and dry -per nursing. Kaden: 19. GI: Bowel sounds present. Nutrition-focused physical findings: Pt appears well-nourished. Labs: No pertinent nutrition-related lab values Nutrition-related meds: Colace, Milk of Magnesia, Zofran, Percocet Anthropometrics: Admit Wt: 59 kg UBW: 59 kg (%UBW: 100%). UBW per pt IBW: 61.6 kg (%IBW: 96%) DW: 59 kg Ht Readings from Last 1 Encounters: 11/25/18 5' 7 (1.702 m) Wt Readings from Last 1 Encounters: 11/25/18 59 kg (130 lb) Body mass index is 20.36 kg/m??. (Underweight)/age Admission weight: 59 kg (Date: 11/25/18; Method: Stated) Last 5 Recorded Weights 11/07/18 1052 11/25/18 1830 Weight: 59 kg (130 lb) 59 kg (130 lb) No new weights documented since admission. Estimated Nutrient Needs: Calories: 1510 kcal/day, based on MSJ x 1.3 Protein: 75 gm/day, based on 1.3 g/kg Fluid: 1510 ml/day, based on 1ml/kcal Current diet order: General Current diet appropriate? Yes Current intake sufficient to meet nutritional needs? Yes, pt consumed 1042 kcal (meeting 70% estimated energy needs) and 55g protein (meeting 73% of estimated protein needs) of breakfast and dinner meals per [employer]. Lunch data not available from yesterday as it was noted it was brought in by family. Pain affecting PO intake? Yes, pt states slightly. Nutrition Education: Snacks between meals to assist in meeting nutrition needs. NUTRITION DIAGNOSIS None at present. Pt weight has been stable. She is eating adequately to support nutrition needs. Nutrition risk: Low NUTRITION INTERVENTION Nutrition prescription: General 1. Continue with a general diet. 2. Snacks between meals to assist in meeting nutrition needs due to pt noting that her appetite is slightly decreased secondary to pain. 3. Will monitor need to discuss adjustments in timing of pain medication if intake is declined on follow-up. 4. Check weight every 72 hr for monitoring of weight status. Discharge nutrition plan: Discharge needs assessed. Will provide/update discharge instructions as needed. MONITORING/EVALUATION 11/27/2018 Goals: 1. Intake of 75-100% x 3 meals daily through follow-up. 2. Intake of 75-100% x 1-2 snacks daily through follow-up. 3. Stable weight of 59 kg through follow-up. LYNDA IBARRA RD, LDN * Taylor Martinez, RUBBER THREAD SPOOLER - 11/27/2018 12:54 PM CDT 11/27/18 0940 Therapy Visit Ordering Provider Dr March Subjective Pt lying in bed upon arrival and agrees to therapy. Pt states that her pain is a 5 with movement located in right shoulder pre treatment. Reason for admission Closed fx of R proximal humerus Verified Two Patient Identifiers Yes Patient consents to therapy Yes Time Calculation PT Start Time 0939 PT Stop Time 1005 PT Time Calculation (min) 26 min Precautions Weight Bearing Status NWB;RUE Pain Pain Yes Pain Score 5 Location R shoulder with movement Activity Tolerance Endurance Tolerates 20 - 30 min activity with rests Bed Mobility Supine to Sit Modified independence TRANSFERS Sit to Stand Independent Bed to Chair Independent Gait Gait Assistance Contact guard assist Assistive Device Cane;Large base quad cane Ambulation Distance (Feet) 20ft x2 Balance Sitting - Static Independent Sitting - Dynamic Independent Standing - Static Modified independence;Support of one upper extremity Standing - Dynamic Modified independence;Support of one upper extremity;Support of both upper extremities PT Assessment PT Assessment Pt seemed to ambulate about the same with a straight cane and quad cane this morning.Pt demonstrated no LOB or safety concerns with all balancing activities this morning. Recommendation PT Recommendation Outpatient PT PT Equipment Recommended Straight cane;Quad cane Plan PT Treatments/Interventions Gait Training;Therapeutic Exercises;Therapeutic Activities;Neuromuscular re-education Progress Progressing toward goals PT Frequency BID End of Session Safety End of Session Safety Call light within reach * VERN Velazquez - 11/27/2018 11:05 AM CDT 11/27/18938 Therapy Visit Reason for admission Closed fx of R proximal humerus Ordering Provider Dr March Verified Two Patient Identifiers Yes Patient consents to therapy Yes Time Calculation OT Start Time 938 OT Stop Time 1005 OT Time Calculation (min) 26 min Subjective Subjective Pt in bed and agreeable to treatment. Pain Pain Yes Pain Score 5 Activity Tolerance Endurance Tolerates 20 - 30 min activity with rests ADL Bathing Assistance Modified independent (Device) UE Dressing Assistance Modified independent (Device) LE Dressing Assistance Modified independent (Device) Toileting Assistance Modified independent Bed Mobility Supine to Sit Modified independence Functional Transfers Sit to Stand Independent Bed to Chair Modified independence Toilet Transfers Modified Independent Shower Transfers Independent Recommendation OT Recommendation Outpatient PT OT Equipment Recommended Straight cane;Quad cane Plan OT Treatment/Intervention Self-care training;Therapeutic activities;Functional activity Progress Progressing toward goals End of Session Safety End of Session Safety Call light within reach Objective Objective Pt seen during skilled OT with focus on transfers,toileting,bed mobility,UB/LB dressing and showering. * Марина Madden - 11/27/2018 8:47 AM CDT SW followed up with patient as it is expected that she be discharged today. Patient believes that she is being discharged today but has not seen anyone yet. She does not know if she is expected to dooutpatient therapy or not. She will have a ride home. Patient signed the Important Message from Medicare. * Layton Mejia RN - 11/26/2018 9:04 PM CDT Problem: Discharge Planning Goal: Knowledge of discharge instructions Outcome: Progressing Education on going Problem: Pain control/comfort Goal: Promote pain control/comfort Outcome: Progressing Pt is able to verbalize pain Problem: Skin integrity, Impaired-wound Goal: Absence of new skin breakdown Outcome: Progressing No new skin breakdown Goal: Evidence of wound healing Outcome: Progressing Wound is covered Problem: Skin integrity, Impaired-pressure injury/ulcer Goal: Absence of new skin breakdown Outcome: Progressing No new skin breakdown noted Goal: Evidence of pressure injury/ulcer healing Outcome: Progressing No new skin breakdown Problem: Moisture associated skin impairment Goal: Reduce moisture exposure Outcome: Progressing Pt is cdi Goal: Evidence of wound healing Outcome: Progressing Wound is covered Goal: Evidence of pressure injury/ulcer healing Outcome: Progressing Wound remains covered Goal: Absence of new skin breakdown Outcome: Progressing No new skin breakdown Problem: Discharge Planning Goal: Knowledge of discharge instructions Outcome: Progressing Education on going Problem: Bowel Function - Altered Goal: Bowel elimination within specified parameters Outcome: Progressing Bowels within normal limits Problem: Venous Thromboembolism - Risk of Goal: Absence of venous thromboembolism Outcome: Progressing No evidence of dvt/pe noted Problem: Infection - Risk of, Surgical Site Infection Goal: Absence of infection signs and symptoms Outcome: Progressing No s/s of infection noted Problem: Mobility - Impaired Goal: Able to use ambulatory assistive device appropriately Outcome: Progressing Pt ambulates appropriately Goal: Knowledge of need for increased mobility Outcome: Progressing Education on going Problem: Pain - Acute Goal: Control of acute pain Outcome: Progressing Pt is able to express pain * Taylor Martinez PTA - 11/26/2018 6:20 PM CDT 11/26/18 1324 Therapy Visit Ordering Provider Dr March Subjective Pt lying in bed upon arrival and agrees to therapy. Pt states that her right arm is really sore this afternoon and rates her pain a 7 pre treatment. Reason for admission Closed fx of R proximal humerus Verified Two Patient Identifiers Yes Patient consents to therapy Yes Time Calculation PT Start Time 1323 PT Stop Time 1346 PT Time Calculation (min) 23 min PT Is this a Rehab Patient Yes PT Total Therapy Minutes Provided 23 Precautions Weight Bearing Status NWB;RUE Pain Pain Yes Pain Score 7 Location R shoulder Activity Tolerance Endurance Tolerates 20 - 30 min activity with rests Bed Mobility Supine to Sit SBA/supervision Sit to Supine SBA/supervision TRANSFERS Sit to Stand SBA/supervision Bed to Chair SBA/supervision Gait Gait Assistance Contact guard assist;Min assist Assistive Device Cane Ambulation Distance (Feet) 100ft Other (Comment) Pt slightly unstable throughout ambulation this afternoon with straight cane. Stairs Stair Management Assistance Contact guard assist Stair Management Technique One rail L Number of Stairs 5 Interventions R Shoulder PROM Flexion R Elbow AROM Flexion Other (Comment) Passive stretching to R shoulder x10 minutes PT Assessment PT Assessment Pt able to increase ambulation distance this afternoon, but seemed a little unsteady with straight cane, which patient states she has been that way for some time now. A quad cane may beattempted next therapy session since patient is NWB on R UE. Pt ascended and descended stairs without LOB or safety concerns. Recommendation PT Recommendation Outpatient PT PT Equipment Recommended Straight cane;Quad cane Plan PT Treatments/Interventions Gait Training;Therapeutic Exercises;Therapeutic Activities;Neuromuscular re-education Progress Progressing toward goals PT Frequency BID End of Session Safety End of Session Safety Call light within reach * VERN Velazquez - 11/26/2018 2:03 PM CDT 11/26/18 1323 Therapy Visit Ordering Provider Dr March Verified Two Patient Identifiers Yes Patient consents to therapy Yes Time Calculation OT Start Time 1323 OT Stop Time 1338 OT Time Calculation (min) 15 min Subjective Subjective Pt agreeable to treatment. Bed Mobility Supine to Sit SBA/supervision Sit to Supine SBA/supervision Functional Transfers Sit to Stand SBA/supervision Bed to Chair SBA/supervision Recommendation OT Recommendation Outpatient PT OT Equipment Recommended Straight cane Plan OT Treatment/Intervention Self-care training;Therapeutic activities;Functional activity Progress Progressing toward goals End of Session Safety End of Session Safety Other (Comment) Objective Objective Pt seen during skilled OT with focus on transfers,and bed mobility. * Nehemiah Hartley MD - 11/26/2018 10:59 AM CDT S/P ISB and GA for TSA. Patient denies recall of surgical events, back pain, sore throat, headaches, or nausea. Her pain has been minimal throughout her postop course up until 4AM this morning when the ISB subsided. This has been improved with oral pain meds. Doing well s/p ISB and GA without obvious anesthetic complications. * Castillo Powers, PT - 11/26/2018 10:48 AM CDT [facility] Physical Therapy Inpatient Evaluation Time In: 843 Time Out: 914 Trisha Waite 324/01 S42.201A Closed fracture of right proximal humerus Past Medical History: Diagnosis Date ??? Depression Past Surgical History: Procedure Laterality Date ??? JOINT REPLACEMENT ??? TOTAL HIP ARTHROPLASTY bilateral Subjective: Orientation: x 4 Pain: 12/26 Pain Location: R shoulder Patient reports she is in a lot of pain post-op. She has a son and daughter that lives nearby to assist her at home. Home Environment: House Entrance: 4 steps with Bilateral handrail. Living arrangements - The patient lives alone. Patient has been ambulatory with single point cane Objective: Patient was in bed upon pt arrival. Observation: Pt is able to perform R hand, wrist, and elbow AROM WNL Precautions/Restrictions: NWB of R UE LE STRENGTH Left Right Hip flexion 4-/5 4-/5 Hip abduction 4/5 4/5 Hip Adduction 4/5 4/5 Knee extension 4/5 4/5 Knee flexion 4/5 4/5 Dorsiflexion 4-/5 4-/5 Transfers: Bed mobility/rolling: Supervision Supine to sit: Supervision Sit to stand: Min A with single point cane Pivot: Min A with single point cane Ambulation: 25' x 2 with str cane CGA Activity performed this session: Therapeutic Exercise 70139: Time: 10 -Pendulums side - side, fwd - back, cw/ccw x 25 ea -scap squeezes 5 sec x 20 Assessment: Trisha Waite is a 68-year-old female who presents with a primary complaint of S42.201A Closed fracture of right proximal humerus. Patient is demonstrating deficits in Strength, ROM, Posture, Mobility and Transfers leading to decreased safety, inability to perform home mobility, inability to perform self care and decreased independence. Skilled therapy is appropriate at this time to address these impairments and to move the patient towards their goal of D/C'ing home safely. Recommended Interventions: Therapeutic Activity, Therapeutic Exercise, Gait Training, Manual Therapy and Self-Care Training Rehab Potential: Good Personal Factors/Co-Morbidities Affecting Care: 1-2 Examination of Body Systems: Low (1-2) Clinical Presentation of Patient: Stable Uncomplicated Eval Complexity: Low PT Plan: Frequency: BID and Daily on Sunday Duration: 1 week Anticipated Discharge at this time: Home with Assist Plan for next session:therex, gait and transfer training Safety at conclusion of Treatment: Patient in Chair and Call Light in Reach * Jacqui Powers, OT - 11/26/2018 10:20 AM CDT [facility] Occupational Therapy Inpatient Evaluation Time In: 909 Time Out: 923 Total Evaluation Time: 14 minutes Ordering Physician: Dr. March Patient: Trisha Waite Location: 324/01 Diagnosis: S42.201A Closed fracture of right proximal humerus Past Medical History: Diagnosis Date ??? Depression Past Surgical History: Procedure Laterality Date ??? JOINT REPLACEMENT ??? TOTAL HIP ARTHROPLASTY bilateral Subjective: Pain: 10/10 Pain Location: R shoulder Pt was sitting up in chair upon OTR arrival. Pt reporting she is experiencing 10/10 pain, but smiling and able to converse without difficulty. Pt lives alone and her son and [id number] live ~1 mile away from her. PLOF: ADLs Bathing: Independent Toileting: Independent UB Dressing: Independent LB Dressing: Independent Feeding: Independent Grooming: Independent IADLS Meal Preparation: Independent Cleaning: Independent Laundry: Independent Working/Volunteering: No Driving: Yes Care of Others: No Functional Mobility & Transfers Bed Mobility: Independent Toilet Transfers: Independent Tub/Shower Transfers: Independent Patient has been completing functional mobility with single point cane. Home Environment: House Levels: 1 Entrance: 4 steps Bathroom is equipped with tub/shower combo, shower chair, and standard toilet. Living arrangements - The patient lives alone. 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 Education: Pt educated about purpose and benefit of participation in occupational therapy. Assessment: Trisha Waite is a 68-year-old female who presents with a primary complaint of S42.201A Closed fracture of right proximal humerus. Pt is currently demonstrating decreased ability to complete ADLs and functional mobility. Pt will benefit from participation in skilled OT services to improve independence. Recommended Interventions: Therapeutic Activity and Self-Care Training Rehab Potential: Excellent Occupational Profile and History Complexity: Moderate (Expanded) Performance Skills Deficits: Low Performance Deficit Level: Low Clinical Decision Making: Low Evalualtion Complexity Level: Low OT Plan: Frequency: 5x/week Duration: 1 week Plan for next session: ADL and transfer training Anticipated Discharge at this time: Home with Assist Safety at conclusion of Treatment: Upon OTR departure, pt sitting up in chair, call light within reach, and all needs met. * Марина Madden - 11/26/2018 7:31 AM CDT Patient lives at home alone. She is independent for the most part at home. She uses a cane to get around. She has four steps to get into the home. She has no stairs in the house. She does all the cooking, cleaning, and laundry. She takes care of her own medication. She was not getting therapy priorto being admitted. She is unsure if the doctor will want her to have therapy once discharged. She will have a ride home when discharged. No discharge needs at this time. SW will continue to follow. * Sanna Burgess RN - 11/25/2018 11:05 PM CDT Problem: Pain control/comfort Goal: Promote pain control/comfort Outcome: Progressing No c/o pain at this time. Pt instructed to request pain med when needed. * Sanna Burgess RN - 11/25/2018 11:04 PM CDT Problem: Venous Thromboembolism - Risk of Goal: Absence of venous thromboembolism Outcome: Progressing No evidence of DVT. Pt wearing DVT boots. documented in this encounter H&P Notes * Moises March MD - 11/25/2018 3:21 PM CDT HISTORY AND PHYSICAL INTERVAL NOTE: I have reviewed Trisha Waite History & Physical which was performed within the past 30 days.After examining Trisha Waite, no change has occurred in the patient's condition since the H&P was completed. Informed Consent Discussion: Risks, benefits, alternatives as well as the consequences of not performing the surgery/procedure were discussed with the patient and/or family/personal education courses sales representative. Questions were answered and the patient/family/personal education courses sales representative verbalized understanding and desires to proceed. Source Note - CHANDNI Chiang - 11/07/2018 9:05 AM CDT Spoke with son Zack regarding patient's creatinine level in eating to be seen by PCP. She will obtain repeat BMP in a.m. and see her PCP Dr. Valdivia's PA tomorrow morning to obtain medical clearance since she has not been seen since 2016. documented in this encounter OR Notes * Op Note - Moises March MD - 11/25/2018 5:44 PM CDT Hannah Waitejorie 1950 [id number] 11/25/2018 Preop diagnosis: Right four-part proximal humerus fracture Postop diagnosis: Same Procedure Description:right reverse total shoulder arthroplasty using a Depuy will unite reverse fracture body with a 12 mm global unite stem and a +6 spacer with a 38 mm glenosphere Surgeon:MOISES MARCH MD Anesthesia: General Indication: Patient is a 68-year-old female who fell suffering a displaced four- part proximal humerus fracture. She is pretty active individual and I recommended the above procedure. She elects to proceed after reviewing risks and benefits Procedure: After regional block was performed in the holding area the patient was brought to the operating room where the patient was positioned in a supine fashion and general anesthesia administered. Antibiotics and tranexamic acid were given intravenously. The patient was then positioned in a semisitting position using the beachchair and the appropriate shoulder prepped and draped in usual sterile fashion. The anatomy was marked and a deltopectoral incision was made identifying the cephalic vein and retracting it in the medial direction. The deltoid was retracted and the deltopectoral fascia incised also removing bursal tissues to expose the humeral head. An osteotome was used to separate the tuberosities exposing the humeral head which was then retrieved. The rotator cuff was split jordon little further to allow exposure. The awl was then used to penetrate the canal and we reamed up to 12 millimeters. The glenoid was exposed and the labrum resected. The labrum was resected using electrocautery and a guidepin inserted into the appropriate position in the glenoid. We then reamed theglenoid to contour it to the [place] component. The guidepin was overdrilled and we then impacted the metaglen and drilled the 4 holes. The superior locking screw was very good but otherwise 2 locking screws and 2 compression screws were inserted obtaining satisfactory purchase. We then turned ourattention to the proximal humerus and put the reamer guide and again in approximately 10 degrees ofretroversion. We then impacted the trial humeral stem and trialed spacers. The trial components were then removed. We then impacted the final 12 mm stem with a size 1 global unite body. We again trialed spacers and then impacted a plus 6 polyethylene spacer and reduced the shoulder demonstrating very good stability. Multiple sutures were pressed around the fracture body and through the holes in the fracture body and then meticulously used to repair the tuberosities back down. Bone graft was obtained from the humeral head and packed underneath the tuberosities. We then oversewed the rotator cuff tendon to reinforce the repair. The wound was copiously irrigated and we then irrigated with Betadine solution. 2-0 Vicryl was then used to close subcutaneous tissue and skin vitor completed the skin closure. Sterile dressings were applied and the drapes withdrawn. The dressings were made occlusive using Medipore tape. General anesthesia was discontinued the patient was transferred to the stretcher and subsequently to the PACU in good condition. Estimated blood loss was 200 cc and sponge needle counts were correct x2 following the procedure. * Brief Op Note - Moises March MD - 11/25/2018 5:43 PM CDT [facility] Brief Op HSHSARTHROPLASTY SHOULDER TOTAL REVERSE Procedure Note Trisha Waite 11/25/2018 1520 Procedure(s) (LRB): ARTHROPLASTY SHOULDER TOTAL REVERSE (Right) Surgeon(s): Moises March MD Veterinary Medicine Doctor: Time Study Technician: Deidra M Keys, RN Anesthesia: Choice Pre-Op Diagnosis: S42.201A Post-Op Diagnosis: Same Findings: Estimated Blood Loss: 200 mL Specimens: None MOISES MARCH MD Date: 11/25/2018 Time: 5:44 PM documented in this encounter Plan of Treatment Not on file documented as of this encounter Procedures Procedure Name Priority Date/Time Associated Diagnosis Comments HEMOGLOBIN AND HEMATOCRIT Routine 11/26/2018 6:00 AM CDT ARTHROPLASTY SHOULDER TOTAL REVERSE 11/25/2018 3:18 PM CDT S42.201A documented in this encounter Results * (ABNORMAL) HEMOGLOBIN AND HEMATOCRIT (11/26/2018 6:00 AM CDT) HGB 11.6(L) 12.0 - 16.0 G/DL 11/26/2018 6:29 AM CDT [facility] HCT 36.7 36.0 - 47.0 % 11/26/2018 6:29 AM CDT [facility] 11/26/2018 6:00 AM CDT us Moises March MD LABORATORY Final Result [facility] [place] [address], documented in this encounter Visit Diagnoses Diagnosis Closed fracture of right proximal humerus Closed fracture of unspecified part of upper end of humerus documented in this encounter Administered Medications Inactive Administered Medications - up to 3 most recent administrations Medication Order MAR Action Action Date Dose Rate Site acetaminophen (TYLENOL) 500 MG tablet 1 dose, Starting on Sun11/25/18 at 1318, Until Sun11/25/18 at 1341, Created by cabinet override acetaminophen (TYLENOL) tablet 1,000 mg 1,000 mg, Oral, Once, 1 dose, On Sun11/25/18 at 1345, Maximum dose of acetaminophen is 4000 mg from all sources in 24 hours., Pre-Op Given 11/25/2018 1:41 PM CDT 1,000 mg amlodipine (NORVASC) tablet 10 mg 10 mg, Oral, Daily, First dose on Sun11/25/18 at 1930, Until Discontinued Given 11/27/2018 8:13 AM CDT 10 mg Given 11/26/2018 8:32 AM CDT 10 mg aspirin EC (ECOTRIN) tablet 81 mg 81 mg, Oral, 2 times daily with meals, First dose on Sun11/26/18 at 0800, Until Discontinued, Start morning after surgery Do not break, chew, or crush., Post-Op Given 11/27/2018 8:13 AM CDT 81 mg Given 11/26/2018 4:28 PM CDT 81 mg Given 11/26/2018 8:32 AM CDT 81 mg ceFAZolin (ANCEF) 2 g in NS 100 mL IVPB 2 g, Intravenous, at 200 mL/hr, Every 8 hours, 2 doses, First dose on Sun11/25/18 at 2330, Last dose on Sun11/26/18 at 0730, Give 2 gram dose for patients less than 120 kg. PHARMACY TO ADJUST administration times based on pre-op/intra-op dose. Do NOT continue greater than 24 hours after anesthesia end time., Post-Op New Bag 11/26/2018 8:33 AM CDT 2 g 200 mL/hr New Bag 11/25/2018 11:07 PM CDT 2 g 200 mL/hr celecoxib (CELEBREX) 100 MG capsule 1 dose, Starting on Sun11/25/18 at 1318, Until Sun11/25/18 at 1342, Created by cabinet override celecoxib (CELEBREX) capsule 200 mg 200 mg, Oral, Once, 1 dose, On Sun11/25/18 at 1345, Do not administer with antacids, Pre-Op Given 11/25/2018 1:4 2 PM CDT 200 mg chlorhexidine (PERIDEX) 0.12 % solution 15 mL 15 mL, Mouth/Throat, Once, 1 dose, On Sun11/25/18 at 1345, Patient to perform oral care first. Swish/gargle in mouth for 30 seconds, and then discard prior to going to surgery. If ventilated use saturated swab to clean oral cavity., Pre-Op Given 11/25/2018 1:41 PM CDT 15 mLs docusate sodium (COLACE) capsule 100 mg 100 mg, Oral, 2 times daily, First dose on Sun11/25/18 at 2100, Until Discontinued, Post-Op Given 11/27/2018 8:13 AM CDT 100 mg Given 11/26/2018 8:04 PM CDT 100 mg Given 11/26/2018 8:32 AM CDT 100 mg hydrocodone-acetaminophen (NORCO) 10-325 MG tablet 1 tablet 1 tablet, Oral, Every 4 hours PRN, Moderate pain (Scale 4 - 7), Starting on Sun11/25/18 at 2000, Until Sun11/26/18 at 0839, Maximum dose of acetaminophen is 4000 mg from all sources in 24 hours., Post-Op Given 11/26/2018 3:58 AM CDT 1 tablet lactated ringers infusion at 10 mL/hr, Intravenous, Continuous, Starting on Sun11/25/18 at 1345, Until Sun11/26/18 at 0839, Infuse at TKO rate, Pre-Op New Bag 11/25/2018 4:00 PM CDT New Bag 11/25/2018 1:41 PM CDT 10 mL/hr lactated ringers infusion at 75 mL/hr, Intravenous, Continuous, Starting on Sun11/25/18 at 1900, Until Sun11/26/18 at 0839, Post-Op New Bag 11/25/2018 8:10 PM CDT 75 mL/hr metoprolol succinate ER (TOPROL-XL) 24 hr tablet 50 mg 50 mg, Oral, Daily, First dose on Sun11/26/18 at 0900, Until Discontinued, May be split in half along the tablet score line; do not chew or crush. Given 11/27/2018 8:13 AM CDT 50 mg Given 11/26/2018 8:32 AM CDT 50 mg morphine injection 4 mg 4 mg, Intravenous, Every 2 hours PRN, Other, Breakthrough Pain, Starting on Sun11/25/18 at 2000, Until Sun11/26/18 at 1959, Post-Op Given 11/26/2018 8:33 AM CDT 4 m g Given 11/26/2018 5:49 AM CDT 4 mg oxyCODONE-acetaminophen (PERCOCET) 10-325 MG tablet 1 tablet 1 tablet, Oral, Every 4 hours PRN, Severe pain (Scale 8 - 10), Starting on Sun11/26/18 at 0838, Until Sun11/27/18 at 1748, Maximum dose of acetaminophen is 4000 mg from all sources in 24 hours. Given 11/27/2018 12:49 PM CDT 1 tab let Given 11/27/2018 8:15 AM CDT 1 tablet Given 11/27/2018 1:16 AM CDT 1 tablet oxyCODONE-acetaminophen (PERCOCET) 5-325 MG tablet 1 tablet 1 tablet, Oral, Every 4 hours PRN, Moderate pain (Scale 4 - 7), Starting on Sun11/26/18 at 0838, Until Sun11/27/18 at 1748, Maximum dose of acetaminophen is 4000 mg from all sources in 24 hours. documented in this encounter Active and Recently Administered Medications Times are shown in CDT. Scheduled Medication Order 11/25/2018 11/26/2018 11/27/2018 acetaminophen (TYLENOL) tablet 1,000 mg (COMPLETED) 1,000 mg, Oral, Once, 1 dose, On Sun11/25/18 at 1345, Maximum dose of acetaminophen is 4000 mg from all sources in 24 hours., Pre-Op 1341 (Given - Provider: Obdulia Mello RN) amlodipine (NORVASC) tablet 10 mg 10 mg, Oral, Daily, First dose on Sun11/25/18 at 1930, Until Discontinued 1851 (Not Given - Provider: Lynda Shaw RN - Reason: Patient already took) 0832 (Given - Provider: Lynda Saba RN) 0813 (Given - Provider: Lynda Saba RN) aspirin EC (ECOTRIN) tablet 81 mg(Linked Group 1) 81 mg, Oral, 2 times daily with meals, First dose on Sun11/26/18 at 0800, Until Discontinued, Start morning after surgery Do not break, chew, or crush., Post-Op 0832 (Given - Provider: Lynda Saba RN)1628 (Given - Provider: Lynda Saab RN) 0813 (Given - Provider: Lynda Saba RN)1700 (Canceled Entry - Provider: Automatic Discharge Provider - Comment: Automatically canceled at discontinue of medication order) ceFAZolin (ANCEF) 2 g in NS 100 mL IVPB (COMPLETED) 2 g, Intravenous, at 200 mL/hr, Once, 1 dose, On Sun11/25/18 at 1345, Give 2 gram dose for patients less than 120 kg. Give within 60 minutes of surgical incision., Pre-Op 1534 (Given - Provider: Joe Alatorre CRNA) ceFAZolin (ANCEF) 2 g in NS 100 mL IVPB (COMPLETED)(Linked Group 2) 2 g, Intravenous, at 200 mL/hr, Every 8 hours, 2 doses, First dose on Sun11/25/18 at 2330, Last dose on Sun11/26/18 at 0730, Give 2 gram dose for patients less than 120 kg. PHARMACY TO ADJUST administration times based on pre-op/intra-op dose. Do NOT continue greater than 24 hours after anesthesia end time., Post-Op 2307 (New Bag - Provider: Sanna Burgess RN)2345 (Infusion Stop Time - Provider: Sanna Burgess RN) 0833 (New Bag - Provider: Lynda Saba RN)0903 (Infusion Stop Time - Provider: Lynda Saba RN) celecoxib (CELEBREX) capsule 200 mg (COMPLETED) 200 mg, Oral, Once, 1 dose, On Sun11/25/18 at 1345, Do not administer with antacids, Pre-Op 1342 (Given - Provider: Obdulia Mello RN) chlorhexidine (PERIDEX) 0.12 % solution 15 mL (COMPLETED) 15 mL, Mouth/Throat, Once, 1 dose, On Sun11/25/18 at 1345, Patient to perform oral care first. Swish/gargle in mouth for 30 seconds, and then discard prior to going to surgery. If ventilated use saturated swab to clean oral cavity., Pre-Op 1341 (Given - Provider: Obdulia Mello, DANIAL) docusate sodium (COLACE) capsule 100 mg 100 mg, Oral, 2 times daily, First dose on Sun11/25/18 at 2100, Until Discontinued, Post-Op 2210 (Given - Provider: Sanna Burgess RN) 0832 (Given - Provider: Lynda Saba, DANIAL)2003 (Given - Provider: Layton Mejia RN) 0813 (Given - Provider: Lynda Saba RN) metoprolol succinate ER (TOPROL-XL) 24 hr tablet 50 mg 50 mg, Oral, Daily, First dose on Sun11/26/18 at 0900, Until Discontinued, May be split in half along the tablet score line; do not chew or crush. 0832 (Given - Provider: Lynda Saba RN) 0813 (Given - Provider: Lynda Saba RN) tranexamic acid (CYKLOKAPRON) 1,000 mg in sodium chloride 0.9 % 50 mL (COMPLETED) 1,000 mg, Intravenous, at 200 mL/hr, Once, 1 dose, On Sun11/25/18 at 1345, PHARMACIST TO ADJUST dose based on SCr (SCr less than 1.6 = 1,000 mg; SCr 1.6-3.3 = 750 mg; SCr 3.4-6.6 = 500 mg; SCr greater than 6.6 = 250 mg). Administer dose over 15 minutes prior to incision., Pre-Op 1542 (New Bag - Provider: Joe Alatorre CRNA) Continuous Medication Order 11/25/2018 11/26/2018 11/27/2018 lactated ringers infusion (CANCELED) at 10 mL/hr, Intravenous, Continuous, Starting on Sun11/25/18 at 1345, Until Sun11/26/18 at 0839, Infuse at TKO rate, Pre-Op 1341 (New Bag - Provider: Obdulia Mello RN)1600 (New Bag - Provider: Nubia Hernandez CRNA)1740 (Anesthesia Volume Adjustment - Provider: Nubia Hernandez CRNA) lactated ringers infusion (CANCELED) at 75 mL/hr, Intravenous, Continuous, Starting on Sun11/25/18 at 1900, Until Sun11/26/18 at 0839, Post-Op 2010 (New Bag - Provider: Sanna Burgess RN) PRN Medication Order 11/25/2018 11/26/2018 11/27/2018 gentamicin (GARAMYCIN) injection (CANCELED) As needed, Starting on Sun11/25/18 at 1626, Until Sun11/25/18 at 1741, Intra-Op 1626 (Given - Provider: Moises March MD) hydrocodone-acetaminophe n (NORCO) 10-325 MG tablet 1 tablet (CANCELED) 1 tablet, Oral, Every 4 hours PRN, Moderate pain (Scale 4 - 7), Starting on Sun11/25/18 at 2000, Until Sun11/26/18 at 0839, Maximum dose of acetaminophen is 4000 mg from all sources in 24 hours., Post-Op 0358 (Given - Provider: Sanna Burgess RN) magnesium hydroxide (MILK OF MAGNESIA) 400 MG/5ML suspension 30 mL 30 mL, Oral, Daily as needed, Constipation, Starting on Sun11/25/18 at 1999, Until Sun11/27/18 at 1748, Give if docusate (COLACE) and bisacodyl (DULCOLAX) are ineffective., Post-Op morphine injection 4 mg () 4 mg, Intravenous, Every 2 hours PRN, Other, Breakthrough Pain, Starting on Sun11/25/18 at 1999, Until Sun11/26/18 at 1959, Post-Op 0549 (Given - Provider: Sanna Burgess RN)0833 (Given - Provider: Lynda Saba RN) ondansetron (ZOFRAN) injection 4 mg 4 mg, Intravenous, Every 6 hours PRN, Nausea, Vomiting, Starting on Sun11/25/18 at 1999, Until Sun11/27/18 at 1748, IV push over 2-5 minutes., Post-Op oxyCODONE-acetaminophen (PERCOCET) 10-325 MG tablet 1 tablet 1 tablet, Oral, Every 4 hours PRN, Severe pain (Scale 8 - 10), Starting on Sun11/26/18 at 0838, Until Sun11/27/18 at 1748, Maximum dose of acetaminophen is 4000 mg from all sources in 24 hours. 1228 (Given - Provider: Lynda Saba RN)1628 (Given - Provider: Lynda Saba RN)2004 (Given - Provider: Layton Mejia RN) 0116 (Given - Provider: Layton Mejia RN)0815 (Given - Provider: Lynda Saba RN)1249 (Given - Provider: Lynda Saba RN) oxyCODONE-acetaminophen (PERCOCET) 5-325 MG tablet 1 tablet 1 tablet, Oral, Every 4 hours PRN, Moderate pain (Scale 4 - 7), Starting on Sun11/26/18 at 0838, Until Sun11/27/18 at 1748, Maximum dose of acetaminophen is 4000 mg from all sources in 24 hours. Linked Groups Order Group 1: aspirin EC (ECOTRIN) tablet 81 mgJump to med 81 mg, Oral, 2 times daily with meals, First dose on Sun11/26/18 at 0800, Until Discontinued, Start morning after surgery Do not break, chew, or crush., Post-Op And Place sequential compression device (CANCELED) Routine, Once, On Sun11/25/18 at 1836, For 1 occurrence, Post-Op And Assess Sequential Compression Device (Assess skin at a minimum of every shift) (CANCELED) Routine, Every shift, First occurrence on Sun11/25/18 at 1836, Post-Op And Intermittent Pneumatic Compression Device Applied (COMPLETED) And Maintain Sequential Compression Device (COMPLETED) Routine, Until discontinued, Starting on Sun11/25/18 at 1836, Until Specified, Post-Op And High Risk for VTE (COMPLETED) Group 2: ceFAZolin (ANCEF) 2 g in NS 100 mL IVPB (COMPLETED)Jump to med 2 g, Intravenous, at 200 mL/hr, Every 8 hours, 2 doses, First dose on Sun11/25/18 at 2330, Last dose on Sun11/26/18 at 0730, Give 2 gram dose for patients less than 120 kg. PHARMACY TO ADJUST administration times based on pre-op/intra-op dose. Do NOT continue greater than 24 hours after anesthesia end time., Post-Op Or ceFAZolin (ANCEF) 3 g in NS 100 mL IVPB (CANCELED) 3 g, Intravenous, at 200 mL/hr, Every 8 hours, 2 doses, First dose on Sun11/25/18 at 1900, Last dose on Sun11/26/18 at 0300, Give 3 gram dose for patients 120 kg and greater. PHARMACY TO ADJUST administration times based on pre-op/intra-op dose. Do NOT continue greater than 24 hours after anesthesia end time., Post-Op documented in this encounter Care Teams Mulling Machine Operator Relationship Specialty Start Date End Date Jasson Valdivia MD [address] [place] [phone] PCP - General FAMILY PRACTICE 11/03/18 documented as of this encounter
--- OUTSIDE RECORDS SUMMARY | 2024-03-19 18:41 | XMS_ITS | Encounter Summary ---
Author Organization [facility] Address [address] [place] [address]. [place], [place] [id number] [place] [id number] Care Team Providers Care Qa Specialist Name Role Phone Jasson Cueva MD Primary Care Provider Reason for Visit * Imaging (Routine) - Closed Specialty Diagnoses / Procedures Referred By Contac t Referred To Contact RADIOLOGY Diagnoses Memory impairment of gradual onset Procedures MRI BRAIN WWO CON MRI BRAIN WO CON Jasson Cueva MD [address] [place] [phone] Phone: tel: fax: Referral ID Status Reason Start Date Expiration Date Visits Re quested Visits Authorized [id number] Closed 03/06/2019 04/06/2020 1 1 Encounter Details Date Type Department Care Team (Latest Contact Info) Description 03/07/2019 2:30 PM 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 - 03/07/2019 11:59 PM [facility] Encounter [facility] [address] [place] [address] Jasson Cueva MD [address] [place] [phone] Discharge Disposition: Home or Self Care (Routine Discharge) Social History Tobacco Use Types Packs/Day Years Used Date Smoking Tobacco: Every Day Cigarettes Smokeless Tobacco: Never Alcohol Use Standard Drinks/Week Comments Yes 0 (1 standard drink = 0.6 oz pur e alcohol) Comments No Sex and Gender Information Value Date Recorded Sex Assigned at Not on file Legal 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 09/03/2019 atorvastatin 40 MG tabletIndication s:Ischemic stroke (CMS/HCC [facility]) Take 1 tablet (40 mg total) by mouth nightly at bedtime. 30 tablet 11 12/20/2018 09/03/2019 gabapentin 300 MG capsuleIndicatio ns:Neuropathic pain Take one at bedtime. Increase as directed to two by mouth three times a day, if needed. 180 capsule 3 12/20/2018 06/23/2019 hydrocodone-acet aminophen (NORCO) 7.5-325 MG tablet Take 1 tablet by mouth every 6 (six) hours as needed for Pain. 10 tablet 11/22/2018 09/03/2019 hydrocodone-acet aminophen 5-325 MG tablet Take 1-2 tablets by mouth every 6 (six) hours as needed for Pain. 40 tablet 11/27/2018 09/03/2019 metoprolol succinate ER 50 MG 24 hr tablet Take 1 tablet (50 mg total) by mouth daily. 2 11/08/2018 01/06/2023 oxyCODONE-acetam inophen 5-325 MG tablet Take 1 tablet by mouth every 6 (six) hours as needed for Pain. 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 ??6 mm subacute infarct in the posterior right frontal lobe. ??New subacute focal infarct in the central right cerebellar hemisphere with developing lacunar encephalomalacia and possible adjacent petechial hemorrhage. ??Small focus of enhancement immediately adjacent to the cerebellar infarct. 2. ??Given the scattered old lacunar infarcts, new subacute infarcts, there may be an embolic phenomenon from the carotid arterial systems. 3. ??Developmental venous anomaly coursing throughout the left basal ganglia. 3. ??Mild to moderate atrophy. ??Advanced white matter disease. Interpreted By: Jeovanny Thacker MD, 03/10/2019 2:30 PM Narrative 03/10/2019 2:40 PM 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 Date: 03/07/2019 3:54 PM Exam: MRI BRAIN [facility] CON Comparison: MRI brain dated 12/12/2018. ??CT head dated 12/09/2018. Technique: Multiplanar unenhanced and enhanced sequences were obtained with an MRI brain protocol. ??10 mL of Dotarem through an existing IV site. History: Memory impairment of gradual onset. Findings: There is mild to moderate cerebral atrophy. ??There is marked increased T2 signal throughout the supratentorial white matter possibly related to advanced white matter microangiopathy. ??There is considerable gradient echo artifact involving the basal ganglia left greater than right likely due to the extensive calcifications throughout these regions as seen on the comparison CT exam. ??There is a dilated vein coursing throughout the left basal ganglia with contributory branches throughout the superior left basal ganglia. ??This is likely a developmental venous anomaly draining in the anterior left temporal region. ??The intracranial arteries and venous sinuses of the brain appear patent. The infarct involving the left thalamus has evolved into a focal lacunar encephalomalacia. ??There are scattered old lacunar infarcts in the basal ganglia and cerebellum. ??There is slight increased signal intensity involving the central left cerebellar hemisphere on the diffusion-weighted imaging likely indicating a subacute infarct. ??There is gradient echo susceptibility in this region possibly due to petechial hemorrhage. ??There is a rounded 4 mm focus of enhancement adjacent to the subacute right cerebellar infarct as seen on series 12 image 46. ??There is a 6 mm focus of subacute infarct in the posterior right frontal lobe as seen on series 100 image 19. The ventricular system is normal in caliber. ??The basilar cisterns are preserved. ??The midline structures of the corpus callosum, pituitary gland and brainstem appear grossly normal. ??There is no cerebellar tonsillar ectopia. ??The paranasal sinuses are grossly clear other than thickening in scattered ethmoid air cells. ??The mastoids are grossly clear. Procedure Note Jeovanny Thacker MD - 03/10/2019 Date: 03/07/2019 3:54 PM Exam: MRI BRAIN WWO CON Comparison: MRI brain dated 12/12/2018. CT head dated 12/09/2018. Technique: Multiplanar unenhanced and enhanced sequences were obtainedwith an MRI brain protocol. 10 mL of Dotarem through an existing IVsite. History: Memory impairment of gradual onset. Findings: There is mild to moderate cerebral atrophy. There is markedincreased T2 signal throughout the supratentorial white matter possiblyrelated to advanced white matter microangiopathy. There is considerablegradient echo artifact involving the basal ganglia left greater than rightlikely due to the extensive calcifications throughout these regions asseen on the comparison CT exam. There is a dilated vein coursingthroughout the left basal ganglia with contributory branches throughoutthe superior left basal ganglia. This is likely a developmental venousanomaly draining in the anterior left temporal region. The intracranialarteries and venous sinuses of the brain appear patent. The infarct involving the left thalamus has evolved into a focal lacunarencephalomalacia. There are scattered old lacunar infarcts in the basalganglia and cerebellum. There is slight increased signal intensityinvolving the central left cerebellar hemisphere on the diffusion-weightedimaging likely indicating a subacute infarct. There is gradient echosusceptibility in this region possibly due to petechial hemorrhage. Thereis a rounded 4 mm focus of enhancement adjacent to the subacute rightcerebellar infarct as seen on series 12 image 46. There is a 6 mm focusof subacute infarct in the posterior right frontal lobe as seen on [id number] image 19. The ventricular system is normal in caliber. The basilar cisterns arepreserved. The midline structures of the corpus callosum, pituitary glandand brainstem appear grossly normal. There is no cerebellar tonsillarectopia. The paranasal sinuses are grossly clear other than thickening inscattered ethmoid air cells. The mastoids are grossly clear. Impression: 1. 6 mm subacute infarct in the posterior right frontal lobe. Newsubacute focal infarct in the central right cerebellar hemisphere withdeveloping lacunar encephalomalacia and possible adjacent petechialhemorrhage. Small focus of enhancement immediately adjacent to thecerebellar infarct. 2. Given the scattered old lacunar infarcts, new subacute infarcts, theremay be an embolic phenomenon from the carotid arterial systems. 3. Developmental venous anomaly coursing throughout the left basalganglia. 3. Mild to moderate atrophy. Advanced white matter disease. 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
--- OUTSIDE RECORDS SUMMARY | 2024-03-19 18:41 | XMS_ITS | Encounter Summary ---
Author Organization [facility] Address [address] [place] [address]. [place], [place] [id number] [place] [address] Care Team Providers Care Paver Layer Name Role Phone Jasson Cueva MD Primary Care Provider Reason for Visit * Reason Comments Postop Followup Encounter Details Date Type Department Care Team (Late st Contact Info) Description 12/06/2018 9:30 AM CDT Office Visit [facility] [address] [place] [address] Jessica Hill, [facility] [address] [facility] [place] [address] Postop Followup Social History Tobacco Use Types Packs/Day Years Used Date Smoking Tobacco: Every Day Cigarettes Smokeless Tobacco: Never Alcohol Use Standard Drinks/Week Comments Yes 0 (1 standard drink = 0.6 oz pur e alcohol) Comments No Sex and Gender Information Value Date Recorded Sex Assigned at Not on file 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 PT states she is out of her pain meds, but not sure if she wants a refill. Denies any numbness or tingling in arm, pt states she is not sleeping well. Started PT on Sunday and has no complaints at this time. PE: EXAM of RIGHT shoulder today reveals incision well approximated with mild effusion, good passive range of motion, no redness or warmth, full elbow range of motion, neurovascularly intact. Assessment: Encounter Diagnose(s) ICD-10-CM ICD-9-CM SNOMED CT(R) 1. Aftercare following right shoulder joint replacement surgery Z47.1 V54.81 PATIENT ENCOUNTER STATUS Z96.611 V43.61 2. Closed fracture of proximal end of right humerus with routine healing, unspecified fracture morphology, subsequent encounter S42.201D V54.11 CLOSED FRACTURE OF UPPER END OF HUMERUS Results: XRAY of RIGHT shoulder today reveals hardware in stable alignment with signs of early healing of proximal humerus fracture. Plan: She is doing well and is progressing with physical therapy. Reviewed restrictions of only performing ADLs and no lifting greater than a coffee mug which she voices understanding. She will continue with physical therapy and until further healing is appreciated we will continue with passive range of motion only. She will follow up in 4 weeks for reevaluation. Instructions: Continue with treatment plan Follow up: Return in about 4 weeks (around 01/03/2019). CHANDNI CHIANG documented in this encounter Plan of Treatment Not on file documented as of this encounter Visit Diagnoses Diagnosis Aftercare following right shoulder joint replacement surgery- Primary Closed fracture of proximal end of right humerus with routine healing, unspecified fracture morphology, subsequent encounter documented in this encounter Care Teams Paver Layer Relationship Specialty Start Date End Date Jasson Cueva MD [address] [place] [phone] PCP - General FAMILY PRACTICE 11/03/18 documented as of this encounter
--- OUTSIDE RECORDS SUMMARY | 2024-03-19 18:41 | XMS_ITS | Encounter Summary ---
Author Organization [facility] Address [address] [place] [address]. [place], [place] [address] [place] [address] Care Team Providers Care Senior Accounting Analyst Name Role Phone Jasson Cueva MD Primary Care Provider Encounter Details Date Type Department Care Team (Late st Contact Info) Description 11/07/2018 Orders Only [facility] [address] [address] Jessica Hill FNP-BC [address] [place] [address] [place] [address] Social History Tobacco Use Types Packs/Day Years Used Date Smoking Tobacco: Every Day Cigarettes Smokeless Tobacco: Never Alcohol Use Standard Drinks/Week Comments Yes 0 (1 standard drink = 0.6 oz pur e alcohol) Comments No Sex and Gender Information Value Date Recorded Sex Assigned at Not on file 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 She will obtain repeat BMP in a.m. and see her PCP Dr. Cueva's PA tomorrow morning to obtain medical clearance since she has not been seen since 2016. documented in this encounter Plan of Treatment Not on file documented as of this encounter Results * (ABNORMAL) BASIC METABOLIC PANEL (11/08/2018 8:55 AM CDT) SODIUM S/P/B 142 136 - 145 MMOL/L 11/08/2018 9:12 AM CDT [facility] POTASSIUM S/P/B 4.2 3.5 - 5.1 MMOL/L 11/08/2018 9:12 AM CDT [facility] CHLORIDE S/P/B 108(H) 98 - 107 MMOL/L 11/08/2018 9:12 AM CDT [facility] CO2 22.3 21.0 - 32.0 MMOL/L 11/08/2018 9:12 AM T [facility] GLUCOSE 115 70 - 140 MG/DL 11/08/2018 9:12 AM T [facility] BUN 24 6 - 24 MG/DL 11/08/2018 9:12 AM CDT [facility] CREATININE S/P/B 1.68(H) 0.55 - 1.02 MG/DL 11/08/2018 9:12 AM CDT [facility] CALCIUM S/P/B 9.9 8.4 - 10.5 MG/DL 11/08/2018 9:12 AM T [facility] ANION GAP 11.7 5.0 - 15.0 MMOL/L 11/08/2018 9:12 AM T [facility] OSMOLALITY (CALC) 299 MOSM/KG 11/08/2018 9:12 AM T [facility] Comment:REFERENCE RANGE NOT ESTABLISHED EGFR NON-AFR. AMER. 31(L) >89 ML/MIN/1 .73 M2 11/08/2018 9:12 AM CDT [facility] EGFR AFR. AMER. 36(L) >89 ML/MIN/1 .73 M2 11/08/2018 9:12 AM T [facility] GFR NOTES THE ESTIMATED GFR IS CALCULATED USING THE 2009 CKD-EPI EQUATION. THE FOLLOWING CATEGORIES FOR GRADING RENAL FUNCTION ARE RECOMMENDED BY THE INTERNATIONAL SOCIETY OF NEPHROLOGY (KDIGO 2012 CLINICAL PRACTICE GUIDELINE). 11/08/2018 9:12 AM CDT [facility] Comment: G1,NORMAL OR HIGH: >89 ml/min/1.73 m2 G2,MILDLY DECREASED: 60-89 ml/min/1.73 m2 G3A,MILDLY TO MODERATELY DECREASED: 45-59 ml/min/1.73 m2 G3B,MODERATELY TO SEVERELY DECREASED: 30-44 ml/min/1.73 m2 G4,SEVERELY DECREASED: 15-29 ml/min/1.73 m2 G5,KIDNEY FAILURE: <15 ml/min/1.73 m2 11/08/2018 8:55 AM CDT us Jessica Hill [facility] Final Resu lt [facility] [address] [place] [address], documented in this encounter Visit Diagnoses Diagnosis Displaced fracture of proximal end of right humerus- Primary documented in this encounter Care Teams Senior Accounting Analyst Relationship Specialty Start Date End Date Jasson Cueva MD [address] [place] [phone] PCP - General FAMILY PRACTICE 11/03/18 documented as of this encounter
--- OUTSIDE RECORDS SUMMARY | 2024-03-19 18:41 | XMS_ITS | Encounter Summary ---
Author Organization [facility] Address [address] [place] [address]. [place], [place] [id number] [place] [address] Care Team Providers Care Sort Line Worker Name Role Phone Jasson Cueva MD Primary Care Provider Reason for Visit * Auth/Cert Specialty Diagnoses / Procedures Referred By Jayce coronado Referred To Contact Diagnoses [id number] Procedures ARTHROPLASTY SHOULDER TOTAL REVERSENate notified Referral ID Status Reason Start Date Expiration Date Visits Re quested Visits Authorized [id number] 1 1 Encounter Details Date Type Department Care Team (Late st Contact Info) Description 11/25/2018 3:32 PM CDT Anesthesia Event [address] [place] [address] Nehemiah Hartley MD [facility] [place], [place] [address] Anesthesia Record Procedure Summary Procedure Name Responsible Anesthesiologist Anesthesia Start Time Anesthesia Stop Time ARTHROPLASTY SHOULDER TOTAL REVERSE (Right: Shoulder) 11/25/18 1532 11/25/18 1745 Events Date Time Event Comment 11/25/2018 1532 An Start Patient ID and consent checked and patient reassessed. 1532 An Start Data 1535 Preoxygenation 1538 An Induction 1539 An LMA 1546 an susie now 1548 Anesthesia Ready 1552 1736 LMA Removed 1736 Face Mask Applied 1738 an stop data 1743 Post Anesthetic Care Handoff I completed my handoff to the receiving nurse during which we: 1. Identified the patient 2. Identified the responsible provider 3. Reviewed the pertinent medical history 4. Discussed the surgical course 5. Reviewed intra-op anesthesia management and issues during anesthesia 6. Set expectations for post-procedure period 7. Allowed opportunity for questions and acknowledgement of understanding. 174 An Stop Meds Name Total fentaNYL (SUBLIMAZE) 100 mcg/2 mL inject ion 200 mcg midazolam 2 mg/2 mL injection 2 mg ROpivacaine 0.5%-EPINEPHrine 1:200,000 2 5 mL propofol (DIPRIVAN) 200 mg/20 mL injecti on 180 mg ketamine 50 mg/mL injection 30 mg dexamethasone (DECADRON) 4 mg/mL injecti on 8 mg metoclopramide (REGLAN) 5 mg/mL injectio n 10 mg ondansetron (ZOFRAN) injection 4 mg ceFAZolin (ANCEF) 2 g in NS 100 mL IVPB 2 g tranexamic acid (CYKLOKAPRON) 1,000 mg i n sodium chloride 0.9 % 50 mL 500 mg phenylephrine (INOCENTE-SYNEPHRINE) 10 mg/mL injection 900 mcg lactated ringers infusion 1,700 mL * Agents Name O2 N2O Air Inspired Sevoflurane Sevoflurane * Blood No blood administrations on file. Lines, Drains, and Airways Type Details Placement Removal Peripheral IV Placement Date: 11/25/18; Placement Time: 1338; Placed Outside of This Facility?: No; Size: 20 G; Orientation: Left; Location: Forearm; Site Prep: Alcohol; Local Anesthetic: None; Inserted By: Brian; Insertion attempts: 1; Ultrasound-guided Placement?: No; Patient Tolerance: Tolerated well; Removal Date: 11/27/18; Removal Time: 1458; Removal Reason: Patient Discharged 11/25/18 1338 by Obdulia Mello RN 11/27/18 1458 by Lynda Saba RN Supraglottic Airway Placement Date: 11/25/18; Placement Time: 1541; Airway Device: LMA; LMA Size: 3; Placed Outside of This Facility?: No; Style: Classic; Insertion Attempts:1; Removal Date: 11/25/18; Removal Time: 1736; Removal Person: CIGARETTE INSPECTOR; Removal Reason: End of Case 11/25/18 1541 by Joe Alatorre CRNA 11/25/18 1736 by Nubia Hernandez CRNA Lopez Catheter 11/25/18; 1545; No; I & O - Strict I&O or Critically ill requiring I&O Q1-2hrs; 1; Hand hygiene performed, Site cleansed with sterile antiseptic, Sterile gloves, drape and lubricant used, Catheter inserted using aseptic technique, Lopez care post catheter insertion, Drainage bag secured below level of bladder, Closed system maintained; 18 Fr.; Per Order 11/25/18 1545 by Maggie Mcneil RN 11/26/18 0700 by Sanna Burgess RN Surgical/Incision 11/25/18; 1742; Surgical Wound; Shoulder; Right; DRESSING XEROFORM 5 X 9, SPONGE FLUFFS, TAPE MEDIPORE 4 X 10YD; 11/27/18; 1748 11/25/18 1742 by Maggie Mcneil RN 11/27/18 1748 by Automatic Discharge Provider documented in this encounter Social History Tobacco Use Types Packs/Day Years Used Date Smoking Tobacco: Every Day Cigarettes Smokeless Tobacco: Never Alcohol Use Standard Drinks/Week Comments Yes 0 (1 standard drink = 0.6 oz pur e alcohol) Comments No Sex and Gender Information Value Date Recorded Sex Assigned at Not on file 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 No 11/25/2018 6:39 PM Jennifer Bernal RN Active * Question Answer Date of Assessment Author Status Do you have difficulty dressing or bathing? No 11/25/2018 6:39 PM Chuy Bernal RN Active Because of a physical, mental, or emotional condition, do you have difficulty doing errands alone such as visiting a doctor's office or shopping? No 11/25/2018 6:39 PM Jennifer Bernal RN Active * RETIRED Are you deaf or do you have serious difficulty hearing Answer Date of Assessment Author Status Yes 11/25/2018 6:39 PM EDDA Activ e * RETIRED Are you blind or do you have serious difficulty seeing, even when wearing glasses? Answer Date of Assessment Author Status No 11/25/2018 6:39 PM EDDA Activ e * Do you have serious difficulty walking or climbing stairs? Answer Date of Assessment Author Status No 11/25/2018 6:39 PM Lynda Bernal RN Active * Do you have difficulty dressing or bathing? Answer Date of Assessment Author Status No 11/25/2018 6:39 PM Lynda Bernal RN Active * Because of a physical, mental, or emotional condition, do you have difficulty doing errands alone such as visiting a doctor's office or shopping? Answer Date of Assessment Author Status No 11/25/2018 6:39 PM Lynda Bernal RN Active documented as of this encounter Mental Status * Question Answer Entry Date Author Status Because of a physical, mental, or emotional condition, do you have serious difficulty concentrating, remembering, or making decisions? No 11/25/2018 6:39 PM Lynda Bernal RN Active * Because of a physical, mental, or emotional condition, do you have serious difficulty concentrating, remembering, or making decisions? Answer Entry Date Author Status No 11/25/2018 6:39 PM Lynda Bernal RN Active documented in this encounter Progress Notes * Nehemiah Hartley MD - 11/26/2018 11:00 AM CDT Addendum created 11/26/18 1100 by Nehemiah Hartley MD Sign clinical note, Visit Navigator Flowsheet section accepted documented in this encounter OR Notes * Anesthesia Postprocedure Evaluation - Nubia Hernandez CRNA - 11/25/2018 6:14 PM CDT Anesthesia Post-op Note Trisha Waite Procedure(s): ARTHROPLASTY SHOULDER TOTAL REVERSE (Right Shoulder) Anesthesia type: general, peripheral nerve block as primary anesthesia Vitals: 11/25/18 180 BP: 138/68 Vitals: 11/25/181808 Pulse: 71 Vitals: 11/25/181808 Resp: 18 Vitals: 11/25/181808 Temp: 37.1 ??C Vitals: 11/25/181808 SpO2: 95% Patient Location: PACU Level of Consciousness: awake, alert and oriented Pain Management: adequate analgesia Airway Patency: patent Respiratory Status: spontaneous ventilation and acceptable Cardiovascular Status: acceptable, stable and hemodynamically stable Post-Op Nausea: none Postoperative Hydration: euvolemic Complications: no anesthesia complication * Anesthesia Procedure Notes - Nehemiah Hartley MD - 11/25/2018 2:37 PM CDTAssociated Order(s): Peripheral Block Peripheral Nerve Block Procedure Start Time: 11/25/2018 12:30 PM Procedure Stop Time: 11/25/2018 12:32 PM Patient Location During Procedure: pre-op Reason for Block: at surgeon's request and post-op pain management Preanesthetic Checklist Completed: patient identified, site marked, consent, pre-op evaluation, timeout performed, IV checked, risks and benefits discussed and monitors and equipment checked Procedure Information Patient Position: Semi-recumbent Prep: Chloraprep Patient Monitoring: blood pressure, continuous pulse ox, ECG/EKG and heart rate Block Type: Interscalene Laterality: right Injection Technique: single-shot Procedures: ultrasound guided and nerve stimulator Draping: sterile technique maintained Needle Needle gauge: 25G. Needle length: 1.5 Inch. Needle Localization: anatomical landmarks and ultrasound guidance Test Dose: negative Local Volume: 30 mL Needle Attempts: 1 Assessment Injection Assessment: incremental injection, local visualized surrounding nerve on ultrasound, negative aspiration for heme, no apparent complications, no paresthesia on injection, paresthesia absentand ultrasound image saved Heart rate change: no Additional Notes Site, procedure, and allergies verified. CHG prep. ID of subclavian artery and brachial plexus. Scrolled superiorly to visualize the interscalene region. Needle placed under guidance. Injected 30ml of 0.5% ropivicaine incrementally with multiple negative aspirations. Patient tolerated procedure well. * Anesthesia Preprocedure Evaluation - Nehemiah Hartley MD - 11/25/2018 2:21 PM CDT Anesthesia ROS/MED History Reviewed: Patient summary , ECG, Family history anesthesia, Anesthesia history , Medications , Labs , Images/Studies Pre-Anesthetic State: alert, awake and responds appropriately Pulmonary neg pulmonary ROS Cardiovascular Exercise tolerance:good ROS comment: ECHO on 11/22 was normal. Neuro/Psych (+) depression GI/Hepatic/Renal (+) renal disease Comments: Likely mild prerenal dysfunction. Saw nephrology and she was cleared. Last Cr 1.68 Endo/Other neg endo/other ROS Physical Evaluation Airway Mallampati: I TM Distance: >3 FB Neck ROM: normal Dental (upper dentures), (lower dentures) Pulmonary Pulmonary exam normal Breath sounds clear to auscultation Cardiovascular Rhythm: regular Rate: normal Cardiovascular exam normal Anesthesia Plan ASA 2 Intravenous Induction Anesthesia type: general and peripheral nerve block as primary anesthesia ISB Informed Consent Anesthetic plan and risks discussed with patient of whom consent was obtained. . documented in this encounter Plan of Treatment Not on file documented as of this encounter Procedures Procedure Name Priority Date/Time Associated Diagnosis Comments PERIPHERAL BLOCK Routine 11/25/2018 2:37 PM CDT Procedure Note - Nehemiah Hartley MD - 11/25/2018 2:37 PM CDTThis note is in progress. Peripheral Nerve Block Procedure Start Time: 11/25/2018 12:30 PM Procedure Stop Time: 11/25/2018 12:32 PM Patient Location During Procedure: pre-op Reason for Block: at surgeon's request and post-op pain management Preanesthetic Checklist Completed: patient identified, site marked, consent, pre-op evaluation,timeout performed, IV checked, risks and benefits discussed and monitorsand equipment checked Procedure Information Patient Position: Semi-recumbent Prep: Chloraprep Patient Monitoring: blood pressure, continuous pulse ox, ECG/EKG and heartrate Block Type: Interscalene Laterality: right Injection Technique: single-shot Procedures: ultrasound guided and nerve stimulator Draping: sterile technique maintained Needle Needle gauge: 25G. Needle length: 1.5 Inch. Needle Localization: anatomical landmarks and ultrasound guidance Test Dose: negative Local Volume: 30 mL Needle Attempts: 1 Assessment Injection Assessment: incremental injection, local visualized surroundingnerve on ultrasound, negative aspiration for heme, no apparentcomplications, no paresthesia on injection, paresthesia absent andultrasound image saved Heart rate change: no Additional Notes Site, procedure, and allergies verified. CHG prep. ID of subclavian arteryand brachial plexus. Scrolled superiorly to visualize the interscaleneregion. Needle placed under guidance. Injected 30ml of 0.5% ropivicaineincrementally with multiple negative aspirations. Patient toleratedprocedure well. documented in this encounter Visit Diagnoses Not on filedocumented in this encounter Administered Medications Inactive Administered Medications - up to 3 most recent administrations Medication Order MAR Action Action Date Dose Rate Site ceFAZolin (ANCEF) 2 g in NS 100 mL IVPB 2 g, Intravenous, at 200 mL/hr, Once, 1 dose, On Sun11/25/18 at 1345, Give 2 gram dose for patients less than 120 kg. Give within 60 minutes of surgical incision., Pre-Op Given 11/25/2018 3:34 PM CDT 2 g dexamethasone (DECADRON) injection Intravenous, PRN, Starting on Sun11/25/18 at 1540, Until Sun11/25/18 at 1745, Anesthesia Intra-Op Given 11/25/2018 3:40 PM CDT 8 mg fentaNYL (SUBLIMAZE) injection PRN, Starting on Sun11/25/18 at 1430, Until Sun11/25/18 at 1745, Anesthesia Intra-Op Given 11/25/2018 5:15 PM CDT 50 mcg Given 11/25/2018 4:30 PM CDT 50 mcg Given 11/25/2018 2:30 PM CDT 100 mcg ketamine (KETALAR) injection PRN, Starting on Sun11/25/18 at 1541, Until Sun11/25/18 at 1745, Anesthesia Intra-Op Given 11/25/2018 3:41 PM CDT 30 m g lactated ringers infusion at 10 mL/hr, Intravenous, Continuous, Starting on Sun11/25/18 at 1345, Until Sun11/26/18 at 0839, Infuse at TKO rate, Pre-Op New Bag 11/25/2018 4:00 PM CDT New Bag 11/25/2018 1:41 PM CDT 10 mL/hr metoclopramide (REGLAN) injection Intravenous, PRN, Starting on Sun11/25/18 at 1540, Until Sun11/25/18 at 1745, Anesthesia Intra-Op Given 11/25/2018 3:40 PM CDT 10 mg midazolam (VERSED) injection PRN, Starting on Sun11/25/18 at 1430, Until Sun11/25/18 at 1745, Anesthesia Intra-Op Given 11/25/2018 2:30 PM CDT 2 mg ondansetron (ZOFRAN) injection Intravenous, PRN, Starting on Sun11/25/18 at 1550, Until Sun11/25/18 at 1745, Anesthesia Intra-Op Given 11/25/2018 3:50 PM CDT 4 mg phenylephrine (INOCENTE-SYNEPHRINE) injection PRN, Starting on Sun11/25/18 at 1547, Until Sun11/25/18 at 1745, Anesthesia Intra-Op Given 11/25/2018 4:50 PM CDT 200 mcg Given 11/25/2018 4:45 PM CDT 200 mcg Given 11/25/2018 4:35 PM CDT 100 mcg propofol (DIPRIVAN) IV bolus Intravenous, PRN, Starting on Sun11/25/18 at 1539, Until Sun11/25/18 at 1745, Anesthesia Intra-Op Given 11/25/2018 5:20 PM CDT 30 mg Given 11/25/2018 3:39 PM CDT 150 mg ROpivacaine 0.5%-EPINEPHrine 1:200,000 injection PRN, Starting on Sun11/25/18 at 1430, Until Sun11/25/18 at 1745, Anesthesia Intra-Op Given 11/25/2018 2:31 PM CDT 13 m Ls Given 11/25/2018 2:30 PM CDT 12 mLs tranexamic acid (CYKLOKAPRON) 1,000 mg in sodium chloride 0.9 % 50 mL 1,000 mg, Intravenous, at 200 mL/hr, Once, 1 dose, On Sun11/25/18 at 1345, PHARMACIST TO ADJUST dose based on SCr (SCr less than 1.6 = 1,000 mg; SCr 1.6-3.3 = 750 mg; SCr 3.4-6.6 = 500 mg; SCr greater than 6.6 = 250 mg). Administer dose over 15 minutes prior to incision., Pre-Op New Bag 11/25/2018 3:42 PM CDT 500 mg documented in this encounter Care Teams Sort Line Worker Relationship Specialty Start Date End Date Jasson Cueva MD [address] [place] [phone] PCP - General FAMILY PRACTICE 11/03/18 documented as of this encounter
--- OUTSIDE RECORDS SUMMARY | 2024-03-19 18:41 | XMS_ITS | Encounter Summary ---
Author Organization [facility] Address [address] [place] [address]. [place], [place] [id number] [place] [address] Care Team Providers Care Skills Trainer Name Role Phone Jasson Cueva MD Primary Care Provider Reason for Visit * Reason Onset Date Comments Schedule Surgery 11/22/2018 Encounter Details Date Type Department Care Team (Late st Contact Info) Description 11/22/2018 Telephone [facility] [place] [address] Aneta Fontaine RN Schedule Surgery Social History Tobacco Use Types Packs/Day Years Used Date Smoking Tobacco: Every Day Cigarettes Smokeless Tobacco: Never Alcohol Use Standard Drinks/Week Comments Yes 0 (1 standard drink = 0.6 oz pur e alcohol) Comments No Sex and Gender Information Value Date Recorded Sex Assigned at Not on file 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 He is aware that she may have a light breakfast before 6 am. He denies any questions. documented in this encounter Plan of Treatment Not on file documented as of this encounter Visit Diagnoses Not on filedocumented in this encounter Care Teams Skills Trainer Relationship Specialty Start Date End Date Jasson Cueva MD [address] [place] [phone] PCP - General FAMILY PRACTICE 11/03/18 documented as of this encounter
--- OUTSIDE RECORDS SUMMARY | 2024-03-19 18:41 | XMS_ITS | Encounter Summary ---
Author Organization [facility] Address [address] [place] [address]. [place], [place] [phone] [place] [address] Care Team Providers Care Foot Press Operator Name Role Phone Jasson Cueva MD Primary Care Provider Reason for Visit * Reason Onset Date Comments Follow Up Call 11/14/2018 Encounter Details Date Type Department Care Team (Late st Contact Info) Description 11/14/2018 Telephone [facility] [address] Aneta Fontaine RN Follow Up Call Social History Tobacco Use Types Packs/Day Years Used Date Smoking Tobacco: Every Day Cigarettes Smokeless Tobacco: Never Alcohol Use Standard Drinks/Week Comments Yes 0 (1 standard drink = 0.6 oz pur e alcohol) Comments No Sex and Gender Information Value Date Recorded Sex Assigned at Not on file 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 Mckeon's office called to give our office an update. Patient was seen by the store receiver on Sunday and by Dr. Mahoney - cardiology today. She is scheduled to have an echo on Sunday11/15/18. documented in this encounter Plan of Treatment Not on file documented as of this encounter Visit Diagnoses Not on filedocumented in this encounter Care Teams Foot Press Operator Relationship Specialty Start Date End Date Jasson Cueva MD [address] [place] [phone] PCP - General FAMILY PRACTICE 11/03/18 documented as of this encounter
--- OUTSIDE RECORDS SUMMARY | 2024-03-19 18:41 | XMS_ITS | Encounter Summary ---
Author Organization [facility] Address [address] [place] [address]. [place], [place] [address] [place] [address] Care Team Providers Care Ice Grinder Name Role Phone Jasson Valdivia MD Primary Care Provider [phone] Reason for Visit * Auth/Cert Specialty Diagnoses / Procedures Referred By Jayce t Referred To Contact Diagnoses S42.201A Procedures ARTHROPLASTY SHOULDER TOTAL REVERSENate notified Referral ID Status Reason Start Date Expiration Date Visits Re quested Visits Authorized [id number] 1 1 Encounter Details Date Type Department Care Team (Late st Contact Info) Description 11/25/2018 3:20 PM CDT - 11/25/2018 5:50 PM CDT Surgery [address] [place] [address] Moises March MD [address] [place] [address] ARTHROPLASTY SHOULDER TOTAL REVERSE Surgery Details Date/Time Status Location OR Service Patient Class Case Class Case Type Trauma Case? 11/25/2018 3:20 PM Posted SFL OR OR 2 Orthopedics Morning Admit No Panel 1 Procedure LRB Anes Op Region Wound Class Comments ARTHROPLASTY SHOULDER TOTAL REVERSE Right Choice Shou lder Clean Surgeon Surgeon Role Service Panel Moises March MD Primary Orthopedics 1 documented in this encounter Social History Tobacco Use Types Packs/Day Years Used Date Smoking Tobacco: Every Day Cigarettes Smokeless Tobacco: Never Alcohol Use Standard Drinks/Week Comments Yes 0 (1 standard drink = 0.6 oz pur e alcohol) Comments No Sex and Gender Information Value Date Recorded Sex Assigned at Not on file Legal 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 Gender Identity Not on file Sexual Orientation Not on file documented as of this encounter Last Filed Vital Signs Vital Sign Reading Time Taken Comments Blood Pressure 171/67 11/25/2018 5:47 PM CDT Pulse 76 11/25/2018 5:47 PM CDT Temperature 36.6 ??C (97.8 ??F) 11/25/2018 5:47 PM CD T Respiratory Rate 20 11/25/2018 5:47 PM CDT Oxygen Saturation 100% 11/25/2018 5:47 PM CDT Inhaled Oxygen Concentration - - Weight 59 kg (130 lb) 11/07/2018 10:52 AM CDT Height 170.2 cm (5' 7 ) 11/07/2018 10:52 AM CDT Body Mass Index 20.36 11/25/2018 6:30 [...] Saba RN Active documented in this encounter Discharge Summaries * Moises March MD - 11/27/2018 3:40 PM CDT Physician Discharge Summary Patient ID: Trisha Waite [id number] 68-year-old 1950 Primary Care Physician: JASSON VALDIVIA [...] Discharge Instructions * Discharge Instructions* Jessica Hill, MACARONI PRESS OPERATOR-BC - 11/27/2018 8:10 AM CDT Images from [...] coolor blue. Where can I learn more? [employer] http://orthoinfo.aaos.org/topic.cfm?ywihg=K52564 Last Reviewed Date 2018-01-22 Consumer Information Use [...] for you. Copyright Copyright ?? 2019 [employer] and its affiliates [...] therapy since she is leaving. * Lynda Ibarra RD - 11/27/2018 1:05 PM CDT CLINICAL DIETITIAN [...] problems: No per pt Food allergies/intolerances: NKFA Cultural/Nondenominational food preferences: None noted Neuro: Alert and [...] follow-up. LYNDA IBARRA RD, LDN * Taylor Martinez PTA - 11/27/2018 12:54 PM CDT 11/27/18939 Therapy Visit Ordering Provider Dr March Subjective Pt lying in bed upon arrival and agrees to therapy. Pt states that her pain is a 5 with movement located in right shoulder pre treatment. Reason for admission Closed fx of R proximal humerus Verified Two Patient Identifiers Yes Patient consents to therapy Yes Time Calculation PT Start Time 938 PT Stop Time 1005 PT Time Calculation [...] is able to express pain * Taylor Martinez, SCHOOL LIBRARY MEDIA PROGRAM DIRECTOR - 11/26/2018 6:20 PM CDT 11/26/18 1324 [...] PT - 11/26/2018 10:[address] [facility] Physical Therapy Inpatient Evaluation Time In: 843 [...] CGA Activity performed this session: Therapeutic Exercise 43871: Time: 10 -Pendulums side - side, fwd [...] Physician: Dr. March Patient: Trisha Waite Location: Diagnosis: S42.201A Closed fracture of right proximal [...] Pt lives alone and her son and [id number] live ~1 mile away from her. PLOF: [...] Intact Sensation Impaired Intact ROM nt WFL Metal Molder Strength 3-/5 4+/5 Shoulder flexion nt/5 4+/5 Shoulder abduction nt/5 4+/5 Elbow flexion nt/5 4+/5 Elbow extension nt/5 4+/5 Transfers: Bed mobility/rolling: Not Performed this Date Supine <> sit: Not Performed this Date Sit <> stand: Min A Stand-pivot: Min A Toilet transfer: Min A ADLs Feeding: Port Tobacco Toileting: Not Performed this Date LB Dressing: [...] were discussed with the patient and/or family/personal field representative. Questions were answered and the patient/family/personal field representative verbalized understanding and desires to proceed. [...] March MD - 11/25/2018 5:44 PM CDT Trisha Waite [id number] 11/25/2018 Preop diagnosis: Right four-part proximal humerus [...] March MD - 11/25/2018 5:43 PM CDT HS Brief Op HSHSARTHROPLASTY SHOULDER TOTAL REVERSE Procedure Note Trisha Waite 11/25/2018 1520 Procedure(s) (LRB): ARTHROPLASTY SHOULDER TOTAL REVERSE (Right) Surgeon(s): Moises March MD Lumber Sales Supervisor: Access Developer: Deidra Keys RN Anesthesia: Choice Pre-Op Diagnosis: S42.201A Post-Op [...] - 16.0 G/DL 11/26/2018 6:29 AM CDT [facility] HCT 36.7 36.0 - 47.0 % 11/26/2018 6:29 AM CDT [facility] 11/26/2018 6:00 AM CDT us Moises March MD LABORATORY Final Result [facility] [address] [place] [address], documented in this encounter Visit Diagnoses Not on filedocumented in this encounter Administered Medications Inactive Administered Medications - up to 3 most recent administrations Medication Order MAR Action Action Date Dose Rate Site amlodipine (NORVASC) tablet 10 mg 10 mg, Oral, Daily, First dose on Mon 19 at 1930, Until Discontinued Given 11/27/2018 8:13 [...] Given 11/26/2018 8:32 AM CDT 81 mg docusate sodium (COLACE) capsule 100 mg 100 mg, Oral, 2 times daily, First dose on Sun11/25/18 at 2100, Until Discontinued, Post-Op Given 11/27/2018 8:13 AM CDT 100 mg Given 11/26/2018 8:04 PM CDT 100 mg Given 11/26/2018 8:32 AM CDT 100 mg gentamicin (GARAMYCIN) injection As needed, Starting on Sun11/25/18 at 1626, Until Sun11/25/18 at 1741, Intra-Op Given 11/25/2018 4:26 PM CDT 320 mg Right Shoulder metoprolol succinate ER (TOPROL-XL) 24 hr tablet 50 mg 50 mg, Oral, Daily, First dose on Sun11/26/18 at 0900, Until Discontinued, May be split in half along the tablet score line; do not chew or crush. Given 11/27/2018 8:13 AM CDT 50 mg Given 11/26/2018 8:32 AM CDT 50 mg oxyCODONE-acetaminophen (PERCOCET) 10-325 MG tablet 1 [...] hours., Pre-Op 1341 (Given - Provider: Obdulia Mello, DANIAL) amlodipine (NORVASC) tablet 10 mg 10 mg, [...] Saba RN)1628 (Given - Provider: Lynda Saba RN) 0813 [...] Burgess RN) 0832 (Given - Provider: Lynda Saba RN)2003 (Given - Provider: Layton Mejia RN) 0813 (Given - Provider: Lynda Saba RN) metoprolol succinate ER (TOPROL-XL) 24 hr tablet 50 mg 50 mg, Oral, Daily, First dose on Sun11/26/18 at 0900, Until Discontinued, May be split in half along the tablet score line; do not chew or crush. 0832 (Given - Provider: Lynda Saba RN) 08 (Given - Provider: Lynda Saba RN) tranexamic [...] hours., Post-Op 0358 (Given - Provider: Sanna Burgess, DANIAL) magnesium hydroxide (MILK OF MAGNESIA) 400 MG/5ML suspension 30 mL 30 mL, Oral, Daily as needed, Constipation, Starting on Sun11/25/18 at 1999, Until Sun11/27/18 at 1748, Give if docusate (COLACE) and bisacodyl (DULCOLAX) are ineffective., Post-Op morphine injection 4 mg () 4 mg, Intravenous, Every 2 hours PRN, Other, Breakthrough Pain, Starting on Sun11/25/18 at 2000, Until Sun11/26/18 at 1959, Post-Op 0549 (Given - Provider: Sanna Burgess, DANIAL)0833 (Given - Provider: Lynda Saba RN) ondansetron [...] Post-Op documented in this encounter Care Teams Ice Grinder Relationship Specialty Start Date End Date Jasson Valdivia MD [address] [place] [phone] PCP - General FAMILY PRACTICE 11/03/18 documented as of this encounter
--- OUTSIDE RECORDS SUMMARY | 2024-03-19 18:41 | XMS_ITS | Encounter Summary ---
Author Organization [facility] Address [address] [place] [address]. [place], [place] [address] [place] [address] Care Team Providers Care Door Maker Name Role Phone Jasson Cueva MD Primary Care Provider Reason for Referral * Physical Medicine (Routine) - Closed Specialty Diagnoses / Procedures Referred By Jayce coronado Referred To Contact PHYSICAL THERAPY Diagnoses Displaced fracture of proximal end of right humerus Aftercare following right shoulder joint replacement surgery Jessica Hill FNP-BC [address] [place] [address] Phone: tel: fax: [facility] [phone] Phone: tel: fax: Referral ID Status Reason Start Date Expiration Date V isits Requested Visits Authorized [id number] Closed Physical Therapy 11/27/2018 12/28/2019 1 1 Encounter Details Date Type Department Care Team (Late st Contact Info) Description 11/27/2018 Orders Only [facility] [address], [facility] [place] [address] [place] [address] Jessica Hill FNP-BC [address] [place] [address] Social History Tobacco Use Types Packs/Day Years Used Date Smoking Tobacco: Every Day Cigarettes Smokeless Tobacco: Never Alcohol Use Standard Drinks/Week Comments Yes 0 (1 standard drink = 0.6 oz pur e alcohol) Comments No Sex and Gender Information Value Date Recorded Sex Assigned at Not on file Legal 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 Gender Identity Not on file Sexual Orientation [...] Type Priority Associated Diagnoses Orde r Schedule Ambulatory referral to Physical Therapy Referral Routine Displaced fracture of proximal end of right humerus Aftercare following right shoulder joint replacement surgery Ordered: 11/27/2018 documented as of this encounter Visit Diagnoses Diagnosis Displaced fracture of proximal end of right humerus- Primary Aftercare following right shoulder joint replacement surgery documented in this encounter Care Teams Door Maker Relationship Specialty Start Date End Date Jasson Cueva MD [address] [place] [phone] PCP - General FAMILY PRACTICE 11/03/18 documented as of this encounter
--- OUTSIDE RECORDS SUMMARY | 2024-03-19 18:41 | XMS_ITS | Encounter Summary ---
Author Organization [facility] Address [address] [place] [address]. [place], [place] [address] [place] [address] Care Team Providers Care Cardiac Cath Lab Technologist Name Role Phone Jasson Cueva MD Primary Care Provider [phone] Encounter Details Date Type Department Care Team (Late st Contact Info) Description 12/06/2018 9:27 AM CDT - 12/06/2018 11:59 PM CDT Hospital Encounter [facility] [address] [place] [address] Jessica Hill, [facility]- [address] [place] [address] Discharge Disposition: Home or Self Care (Routine Discharge) Social History Tobacco Use Types Packs/Day Years Used Date Smoking Tobacco: Every Day Cigarettes Smokeless Tobacco: Never Alcohol Use Standard Drinks/Week Comments Yes 0 (1 standard drink = 0.6 oz pur e alcohol) Comments No Sex and Gender Information Value Date Recorded Sex Assigned at Not on file Legal 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 TOBY MAKER Gender Identity Not on file Sexual Orientation [...] Name Priority Date/Time Associated Diagnosis Comments XR SHOULDER RT MIN 2V Routine 12/06/2018 9:41 AM CDT Aftercare following surgery Closed fracture of right proximal humerus documented in this encounter Results * XR SHOULDER RT MIN 2V (12/06/2018 9:41 AM CDT) Anatomical Region Laterality Modality Shoulder Radiographic Sharon ging 12/07/2018 3:24 AM CDT Impressions 12/07/2018 3:28 AM CDT Impression: Right shoulder arthroplasty in good position. New bone formation at the site of the neck fracture suggests some degree of healing in this region. Interpreted By: Jeovanny Thacker, 12/07/2018 3:24 AM Narrative 12/07/2018 3:28 AM CDT Date: 12/06/2018 9:28 AM Exam: XR SHOULDER RT MIN 2V Comparison: Right shoulder and humerus radiography dated 11/03/2018. Technique: 2 views of the right shoulder. History: Recheck. Status post right total shoulder arthroplasty. Findings: There is a reverse right shoulder arthroplasty in good position. The humeral component appears well seated. There remains a fracture at the humeral neck with slight displacement of the greater tuberosity. There is new bone formation at the fracture suggesting some degree of healing. There is subtle soft tissue lucency at the shoulder articulation. Whether this is a fat plane or soft tissue air is indeterminate. The visualized right lung is clear. Procedure Note Jeovanny Thacker MD - 12/07/2018 Date: 12/06/2018 9:28 AM Exam: XR SHOULDER RT MIN 2V Comparison: Right shoulder and humerus radiography dated 11/03/2018. Technique: 2 views of the right shoulder. History: Recheck. Status post right total shoulder arthroplasty. Findings: There is a reverse right shoulder arthroplasty in goodposition. The humeral component appears well seated. There remains a fracture atthe humeral neck with slight displacement of the greater tuberosity. Thereis new bone formation at the fracture suggesting some degree of healing.There is subtle soft tissue lucency at the shoulder articulation. Whether thisis a fat plane or soft tissue air is indeterminate. The visualized rightlung is clear. Impression: Right shoulder arthroplasty in good position. New bone formation at the site of the neck fracture suggests some degree ofhealing in this region. Interpreted By: Jeovanny Thacker, 12/07/2018 3:24 AM Jessica M S[employer] OFFICER-BC GENERAL IMAGING Final Resu lt documented in this encounter Visit Diagnoses Diagnosis Aftercare following surgery Encounter for other specified aftercare Closed fracture of right proximal humerus Closed fracture of unspecified part of upper end of humerus documented in this encounter Care Teams Cardiac Cath Lab Technologist Relationship Specialty Start Date End Date Jasson Cueva MD [address] [place] [phone] PCP - General FAMILY PRACTICE 11/03/18 documented as of this encounter
--- OUTSIDE RECORDS SUMMARY | 2024-03-19 18:41 | XMS_ITS | Encounter Summary ---
Author Organization [facility] Address [address] [place] [address]. 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) Procedures MRI BRAIN WO CON MRI BRAIN WO+MRA BRAIN WO Cal Dupree MD Phone: tel: fax: Referral ID Status Reason Start Date Expiration Date Visits Re quested Visits Authorized [id number] Closed 12/09/2018 01/09/2020 1 1 * Imaging (Routine) - Closed Specialty Diagnoses / Procedures Referred By Contac t Referred To Contact RADIOLOGY Diagnoses Abnormality of basal ganglia (CMS/HCC HHS/HCC) Procedures MRA HEAD WO CON Cal Dupree MD Phone: tel: fax: Referral ID Status Reason Start Date Expiration Date Visits Re quested Visits Authorized [id number] Closed 12/11/2018 01/11/2020 1 1 Reason for Visit * Imaging (Routine) - Closed Specialty Diagnoses / Procedures Referred By Contac t Referred To Contact RADIOLOGY Diagnoses Abnormality of basal ganglia (CMS/HCC HHS/HCC) Procedures MRA HEAD WO CON Cal Dupree MD Phone: tel: fax: Referral ID Status Reason Start Date Expiration Date Visits Re quested Visits Authorized [id number] Closed 12/11/2018 01/11/2020 1 1 Encounter Details Date Type Department Care Team (Latest Contact Info) Description 12/12/2018 6:37 AM CDT - 12/12/2018 11:59 PM CDT Hospital Encounter [facility] [address] [place] [address] Cal Dupree MD [address] [place], [place] [id number] Discharge Disposition: Home or Self Care (Routine Discharge) Social History Tobacco Use Types Packs/Day Years Used Date Smoking Tobacco: Every Day Cigarettes Smokeless Tobacco: Never Alcohol Use Standard Drinks/Week Comments Yes 0 (1 standard drink = 0.6 oz pur e alcohol) Comments No Sex and Gender Information Value Date Recorded Sex Assigned at Not on file 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 No hemorrhagic transformation. 2. Prominent susceptibility in the left basal ganglia and thalamus, corresponding to regions of calcification on prior CT, which themselves appear similar to 2015. Unilaterality and extent are greater than would be expected with physiologic mineralization. Calcifications related to an underlying DVA could appear similar. Other etiologies, though more commonly bilateral and symmetric, include underlying metabolic disorders (e.g. parathyroid hormone disorder, hypothyroidism), prior infection or toxic injury, among other etiologies. 3. Extensive white matter abnormalities, possibly related to advanced small vessel disease. 4. Additional signal abnormalities in the periventricular white matter adjacent to the third ventricle and hypothalamus, potentially related small vessel disease, though location is atypical. Could consider short interval follow-up MRI without and with contrast. Interpreted By: Dann Sarmiento MD, 12/12/2018 7:55 AM Narrative 12/12/2018 8:09 AM CDT INDICATION: Right-sided face and upper arm numbness for [address] EXAMINATION: MRI brain without contrast. TECHNIQUE: Multiplanar and multisequence MRI images of the brain were obtained without contrast. ?? COMPARISON: Prior head CT exams for 08/05/2014 and 12/09/2018. FINDINGS: There is a small ovoid region of diffusion restriction and corresponding T2/FLAIR hyperintensity in the left thalamus consistent with recent infarct. No hemorrhagic transformation. There is prominent susceptibility seen in the left caudate, putamen, and thalamus, and extending into the left cerebral casey. Distribution in appearance similar to foci of calcification on recent CT. Additional punctate foci of susceptibility seen in the right thalamus, elvia, and cerebellar dentate nuclei, possibly reflecting old microhemorrhages as a sequela of chronic hypertensive disease. There are extensive confluent and patchy foci of periventricular and deep/subcortical white matter T2 and FLAIR hyperintensity, with additional foci of signal abnormality seen in the elvia, probably related to small vessel disease. There foci of T2/FLAIR hyperintensity seen within the periventricular white matter adjacent to the third ventricle and in the region of the hypothalamus; no corresponding diffusion abnormality. Few old lacunar infarcts suggested in the basal ganglia and deep white matter regions. Small old cerebellar infarcts. Mild prominence of the ventricles and extra-axial/subarachnoid spaces. No extra-axial collections. Proximal portions of the major intracranial arterial flow voids patent. Craniocervical junction, sellar content, and pineal region are unremarkable. Mastoid air cells clear. Trace mucosal thickening paranasal sinuses. Prior lens replacements. Procedure Note Dann Sarmiento MD - 12/12/2018 INDICATION: Right-sided face and upper arm numbness for 3 days. AbnormalCT EXAMINATION: MRI brain without contrast. TECHNIQUE: Multiplanar and multisequence MRI images of the brain were obtained without contrast. COMPARISON: Prior head CT exams for 08/05/2014 and 12/09/2018. FINDINGS: There is a small ovoid region of diffusion restriction and corresponding T2/FLAIR hyperintensity in the left thalamus consistent with recent infarct. No hemorrhagic transformation. There is prominentsusceptibility seen in the left caudate, putamen, and thalamus, and extending into the left cerebral casey. Distribution in appearance similar to foci of calcification on recent CT. Additional punctate foci of susceptibilityseen in the right thalamus, elvia, and cerebellar dentate nuclei, possibly reflecting old microhemorrhages as a sequela of chronic hypertensive disease. There are extensive confluent and patchy foci ofperiventricular and deep/subcortical white matter T2 and FLAIR hyperintensity, with additional foci of signal abnormality seen in the elvia, probably relatedto small vessel disease. There foci of T2/FLAIR hyperintensity seen withinthe periventricular white matter adjacent to the third ventricle and in the region of the hypothalamus; no corresponding diffusion abnormality. Fewold lacunar infarcts suggested in the basal ganglia and deep white matter regions. Small old cerebellar infarcts. Mild prominence of theventricles and extra-axial/subarachnoid spaces. No extra-axial collections.Proximal portions of the major intracranial arterial flow voids patent. Craniocervical junction, sellar content, and pineal region are unremarkable. Mastoid air cells clear. Trace mucosal thickeningparanasal sinuses. Prior lens replacements. IMPRESSION: 1. 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 No hemorrhagic transformation. 2. Prominent susceptibility in the left basal ganglia and thalamus, corresponding to regions of calcification on prior CT, which themselves appear similar to 2015. Unilaterality and extent are greater than wouldbe expected with physiologic mineralization. Calcifications related to an underlying DVA could appear similar. Other etiologies, though morecommonly bilateral and symmetric, include underlying metabolic disorders (e.g. parathyroid hormone disorder, hypothyroidism), prior infection or toxic injury, among other etiologies. 3. Extensive white matter abnormalities, possibly related to advancedsmall vessel disease. 4. Additional signal abnormalities in the periventricular white matter adjacent to the third ventricle and hypothalamus, potentially relatedsmall vessel disease, though location is atypical. Could consider shortinterval follow-up MRI without and with contrast. Interpreted By: Dann Sarmiento MD, 12/12/2018 7:55 AM us Cal Dupree MD MRI Final Result * MRA HEAD WO CON (12/12/2018 7:43 AM CDT) Anatomical Region Laterality Modality Head Magnetic Resonan ce 12/12/2018 8:16 AM CDT Impressions 12/12/2018 8:20 AM CDT IMPRESSION: 1. No evidence of occlusion of or significant stenosis involving the proximal major segments of the [place]. 2. Possible small aneurysm versus vascular tortuosity at the left ICA/PCOM junction Interpreted By: Dann Sarmiento MD, 12/12/2018 8:16 AM Narrative 12/12/2018 8:20 AM CDT INDICATION: 70 face and upper arm numbness for 3 days. EXAMINATION: 3D TOF MRA of the [place]. TECHNIQUE: 3D TOF MRA of the [place] was performed with both the source data and 3D/MIP reformatted images reviewed. COMPARISON: Prior head CT exams for 08/05/2014 and 12/09/2018. Concomitant brain MRI done same day FINDINGS: Intracranial ICA segments and proximal portions of the anterior and middle cerebral arteries are patent and without significant narrowing. Anterior communicating artery patent. Posterior circulation codominant. Basilar artery patent and without significant stenosis to the terminus. configuration of the left STORAGE WHARFAGE CLERK with a hypoplastic P1 segments and patent posterior communicating artery. Possible small aneurysm versus vascular tortuosity at the left ICA/PCOM junction. Proximal portions of the posterior cerebral arteries, superior cerebellar arteries, and PICA loops patent. Right posterior communicating artery is not well seen. Prominent low signal corresponding to regions of calcification in the left basal ganglia. Procedure Note Dann Sarmiento MD - 12/12/2018 INDICATION: 70 face and upper arm numbness for 3 days. EXAMINATION: 3D TOF MRA of the [place]. TECHNIQUE: 3D TOF MRA of the [place] was performed with both the sourcedata and 3D/MIP reformatted images reviewed. COMPARISON: Prior head CT exams for 08/05/2014 and 12/09/2018. Concomitant brain MRIdone same day FINDINGS: Intracranial ICA segments and proximal portions of the anterior andmiddle cerebral arteries are patent and without significant narrowing. Anterior communicating artery patent. Posterior circulation codominant. Basilar artery patent and without significant stenosis to the terminus. configuration of the left STORAGE WHARFAGE CLERK with a hypoplastic P1 segments and patent posterior communicating artery. Possible small aneurysm versus vascular tortuosity at the left ICA/PCOM junction. Proximal portions of the posterior cerebral arteries, superior cerebellar arteries, and PICAloops patent. Right posterior communicating artery is not well seen. Prominent low signal corresponding to regions of calcification in the left basal ganglia. IMPRESSION: 1. No evidence of occlusion of or significant stenosis involving the proximal major segments of the [place]. 2. 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
--- OUTSIDE RECORDS SUMMARY | 2024-03-19 18:41 | XMS_ITS | Encounter Summary ---
Author Organization [facility] Address [address] [place] [address]. [place], [place] [phone] [place] [id number] Care Team Providers Care Aerographer Name Role Phone Jasson Cueva MD Primary Care Provider Encounter Details Date Type Department Care Team (Latest Contact Info) Description 11/08/2018 8:47 AM CDT - 11/08/2018 11:59 PM [facility] Hospital Encounter [facility] [address] [facility] [place] [address] Moises Christianson MD [address] [place] [address] Discharge Disposition: Home or Self Care (Routine Discharge) Social History Tobacco Use Types Packs/Day Years Used Date Smoking Tobacco: Every Day Cigarettes Smokeless Tobacco: Never Alcohol Use Standard Drinks/Week Comments Yes 0 (1 standard drink = 0.6 oz pur e alcohol) Comments No Sex and Gender Information Value Date Recorded Sex Assigned at Not on file 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 1 11/11/2018 01/12/2021 hydrocodone-aceta minophen 10-325 MG tablet Take 1 tablet by mouth every 6 (six) hours as needed for Pain. 30 tablet 11/05/2018 11/11/2018 hydrocodone-aceta minophen 5-325 MG tablet Take 1-2 tablets by mouth every 6 (six) hours as needed for Pain. 40 tablet 11/27/2018 09/03/2019 metoprolol succinate ER 50 MG 24 hr tablet Take 1 tablet (50 mg total) by mouth daily. 2 11/08/2018 01/06/2023 sulfamethoxazole- trimethoprim (BACTRIM DS) 800-160 MG tablet Take 1 tablet by mouth 2 (two) times daily for 7 days. 14 tablet 11/05/2018 11/12/2018 documented as of this encounter Plan of Treatment Not on file documented as of this encounter Procedures Procedure Name Priority Date/Time Associated Diagnosis Comments BASIC METABOLIC PANEL Routine 11/08/2018 8:55 AM CDT Displaced fracture of proximal end of right humerus documented in this encounter Results * (ABNORMAL) BASIC METABOLIC PANEL (11/08/2018 8:55 AM CDT) SODIUM S/P/B 142 136 - 145 MMOL/L 11/08/2018 9:12 AM CDT [facility] POTASSIUM S/P/B 4.2 3.5 - 5.1 MMOL/L 11/08/2018 9:12 AM CDT [facility] CHLORIDE S/P/B 108(H) 98 - 107 MMOL/L 11/08/2018 9:12 AM CDT [facility] CO2 22.3 21.0 - 32.0 MMOL/L 11/08/2018 9:12 AM CDT [facility] GLUCOSE 115 70 - 140 MG/DL 11/08/2018 9:12 AM CDT [facility] BUN 24 6 - 24 MG/DL 11/08/2018 9:12 AM CDT [facility] CREATININE S/P/B 1.68(H) 0.55 - 1.02 MG/DL 11/08/2018 9:12 AM CDT [facility] CALCIUM S/P/B 9.9 8.4 - 10.5 MG/DL 11/08/2018 9:12 AM CDT [facility] ANION GAP 11.7 5.0 - 15.0 MMOL/L 11/08/2018 9:12 AM CDT [facility] OSMOLALITY (CALC) 299 MOSM/KG 11/08/2018 9:12 AM CDT [facility] Comment:REFERENCE RANGE NOT ESTABLISHED EGFR NON-AFR. AMER. 31(L) >89 ML/MIN/1 .73 M2 11/08/2018 9:12 AM CDT [facility] EGFR AFR. AMER. 36(L) >89 ML/MIN/1 .73 M2 11/08/2018 9:12 AM CDT [facility] GFR NOTES THE ESTIMATED GFR IS CALCULATED USING THE 2009 CKD-EPI EQUATION. THE FOLLOWING CATEGORIES FOR GRADING RENAL FUNCTION ARE RECOMMENDED BY THE INTERNATIONAL SOCIETY OF NEPHROLOGY (KDIGO 2012 CLINICAL PRACTICE GUIDELINE). 11/08/2018 9:12 AM CDT [facility] Comment: G1,NORMAL OR HIGH: >89 ml/min/1.73 m2 G2,MILDLY DECREASED: 60-89 ml/min/1.73 m2 G3A,MILDLY TO MODERATELY DECREASED: 45-59 ml/min/1.73 m2 G3B,MODERATELY TO SEVERELY DECREASED: 30-44 ml/min/1.73 m2 G4,SEVERELY DECREASED: 15-29 ml/min/1.73 m2 G5,KIDNEY FAILURE: <15 ml/min/1.73 m2 11/08/2018 8:55 AM CDT Jessica Dennison Sergio [employer]- LABORATORY Final Resu lt [facility] [address] [place] [address], documented in this encounter Visit Diagnoses Diagnosis Displaced fracture of proximal end of right humerus documented in this encounter Care Teams Aerographer Relationship Specialty Start Date End Date Jasson Cueva MD [address] [place] [phone] PCP - General FAMILY PRACTICE 11/03/18 documented as of this encounter
--- OUTSIDE RECORDS SUMMARY | 2024-03-19 18:41 | XMS_ITS | Encounter Summary ---
Author Organization [facility] Address [address] [place] [address]. [place], [place] [id number] [place] [id number] Care Team Providers Care Purchasing And Fiscal Clerk Name Role Phone Jasson Cueva MD Primary Care Provider [phone] Reason for Referral * Imaging (Emergency) - Closed Specialty Diagnoses / Procedures Referred By Jayce t Referred To Contact RADIOLOGY Procedures CT HEAD WO CON Gabriella Reddy MD Phone: tel: fax: Referral ID Status Reason Start Date Expiration Date Visits Re quested Visits Authorized [id number] Closed 12/09/2018 01/09/2020 1 1 Reason for Visit * Reason Comments Numbness Encounter Details Date Type Department Care Team (Late st Contact Info) Description 12/09/2018 1:43 PM CDT - 12/09/2018 3:55 PM CDT Emergency [facility] 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 Gender Identity Not on file Sexual Orientation Not on file documented as of this encounter Last Filed Vital Signs Vital Sign Reading Time Taken Comments Blood Pressure 129/74 12/09/2018 3:30 PM CDT Pulse 102 12/09/2018 3:30 PM CDT Temperature 37.4 ??C (99.4 ??F) 12/09/2018 1:37 PM CD T Respiratory Rate 18 12/09/2018 3:30 PM CDT Oxygen Saturation 97% 12/09/2018 1:37 PM CDT Inhaled Oxygen Concentration - - Weight 59 kg (130 lb) 12/09/2018 1:37 PM CDT Height 170.2 cm (5' 7 ) 12/09/2018 1:37 PM CDT Body Mass Index 20.36 12/09/2018 1:37 PM CDT documented in this encounter Functional [...] this encounter Discharge Instructions * Discharge Instructions* Gabriella Reddy MD - 12/09/2018 3:39 PM CDT Central Scheduling should be calling you to schedule an MRI and MRA of the brain. Their number is [phone] if you do not hear from them. * Attachments The following attachments cannot be sent through Care Everywhere. * MRI Scan ([facility]) * Magnetic Resonance Angiography ([facility]) * Paresthesias Discharge Instructions ([facility]) documented in this encounter Medications at Time [...] 12/06/2018 09/03/2019 documented as of this encounter ED Notes * Verna Singh RN - 12/09/2018 3:[address] Reddy at bedside. * Verna Singh RN - 12/09/2018 2:[address] advised of need for rad exam. * Adrianne Guzman RN - 12/09/2018 1:38 PM CDT Pt arrives to triage with c/o R sided numbness and tingling that began around 1230 today. Pt statesshe got home from PT and noticed that the right side of her face and arm were numb. Pt also states she is dizzy, but denies any other complaints at this time. * Gabriella Reddy MD - 12/09/2018 1:28 PM CDT eMERGENCY dEPARTMENT eNCOUnter I, naima Lorenzo, am personally taking down the notes in the presence of No att. providers found.?Take no action on this note until reviewed and authenticated??by the physician. CHIEF COMPLAINT Chief Complaint Patient presents with ??? Numbness HPI The patient is a 68 year old female who presents to the ED for evaluation of numbness to her right face and arm onset 1 hour ago. The patient states that she had just gotten home from PT when she noticed some numbness in her right face and arm. The patients son states that the patient did seem a little unsteady onher feet this AM before her PT. The patient reportas that she recently had surgery on her right shoulder. The patient denies any difficulty speaking. The patient denies any complaint, distress or injury in addition to those already recorded. The patient is otherwise in their baselinestate of health and no other positive complaints were stated upon review of systems. History provided by: Patient matchbook maker used: No ALLERGIES No Known Allergies CURRENT MEDICATIONS Current Outpatient Medications Medication Sig ??? amlodipine 10 MG tablet ??? hydrocodone-acetaminophen (NORCO) 7.5-325 MG tablet Take 1 tablet by mouth every 6 (six) hours as needed for Pain. ??? hydrocodone-acetaminophen 5-325 MG tablet Take 1-2 tablets by mouth every 6 (six) hours as needed for Pain. ??? metoprolol succinate ER 50 MG 24 hr tablet ??? oxyCODONE-acetaminophen 5-325 MG tablet Take 1 tablet by mouth every 6 (six) hours as needed for Pain. PAST MEDICAL HISTORY Past Medical History: Diagnosis Date ??? Depression ??? Displaced fracture of proximal end of right humerus 11/06/2018 ??? Hypertension SURGICAL HISTORY Past Surgical History: Procedure Laterality [...] on file Tobacco Use ??? Smoking status: Current Every Day Smoker Packs/day: 1.00 Types: Cigarettes ??? Smokeless tobacco: Never Used Substance and Sexual Activity ??? Alcohol use: Yes ??? Drug use: No ??? Sexual activity: Not on file Lifestyle ??? Physical activity: Days per week: Not on file Minutes per session: Not on file ??? Stress: Not on file Relationships ??? Social connections: Talks on phone: Not on file Gets together: Not on file Attends congregation service: Not on file Active member of club or organization: Not on file Attends meetings of clubs or organizations: Not on file Relationship status: Not on file ??? Intimate partner violence: Fear of current or ex partner: Not on file Emotionally abused: Not on file Physically abused: Not on file Forced sexual activity: Not on file Other Topics Concern ??? Not on file Social History Narrative ??? Not on file FAMILY HISTORY No family history on file. REVIEW OF SYSTEMS Review of Systems Constitutional: Negative. HENT: Negative. Eyes: Negative. Respiratory: Negative. Cardiovascular: Negative. Gastrointestinal: Negative. Endocrine: Negative. Genitourinary: Negative. Musculoskeletal: Negative. Skin: Negative. Allergic/Immunologic: Negative. Neurological: Positive for numbness (right side of face and arm). Negative for speech difficulty. Hematological: Negative. Psychiatric/Behavioral: Negative. All other ROS negative unless noted above in HPI. PHYSICAL EXAM Physical Exam Constitutional: She is oriented to person, place, and time. She appears well- developed and well-nourished. No distress. HENT: Head: Normocephalic and atraumatic. Eyes: EOM are normal. Neck: Normal range of motion. Pulmonary/Chest: Breath sounds normal. Musculoskeletal: Normal range of motion. Neurological: She is alert and oriented to person, place, and time. Subjective numbness to the right arm and the right side of the face Skin: Skin is warm and dry. Psychiatric: She has a normal mood and affect. Her behavior is normal. Nursing note and vitals reviewed. Filed Vitals: 12/09/18 1337 12/09/18 1530 BP: 114/80 129/74 Pulse: 90 102 Resp: 17 18 Temp: 99.4 ??F (37.4 ??C) TempSrc: Tympanic SpO2: 97% Weight: 59 kg (130 lb) Height: 5' 7 (1.702 m) EKG EKG shows normal sinus rhythm without ischemic changes RADIOLOGY CT HEAD WO CON Final Result by User, [id number] (12/09 1503) EXAM: CT HEAD WITHOUT CONTRAST INDICATION: Acute right facial and arm numbness. Evaluate for acute cerebral infarct. TECHNIQUE: Contiguous unenhanced 3 mm axial slices from skull vertex to vault. A dose lowering technique was utilized for this procedure which may include but is not limited to dose reduction techniques, automated exposure control, and/or the use of iterative reconstruction in accordance with ALARA principle. COMPARISON: CT head 06/21/2014 FINDINGS: There is progressive mild cerebral atrophy with bifrontal predominance. Extensive progressive confluent periventricular and subcortical white matter hypoattenuation. Superimposed bilateral multifocal extensive basal ganglia calcifications again noted, to a greater degree on the left when compared the right. Similar changes noted on prior study, relatively unchanged given differences in technique. Some calcified atherosclerotic plaque. No superimposed acute intracranial hemorrhage suggested within study constraints. No pathologic extra-axial fluid collection. No midline structural shift or focal edema in a major vascular distribution to suggest acute infarction. The ventricular system and cisternal spaces demonstrate no significant abnormality. Globes are intact. Partially imaged nasal septal bony deformity. Some mild thickening and partial opacification of several bilateral ethmoid air cells. No paranasal sinus air-fluid level. The mastoid air cells are well pneumatized. IMPRESSION: Compromised evaluation due to prominent basal ganglia calcifications but overall fairly similar to prior study. Within study demonstrates no superimposed acute intracranial hemorrhage is suggested. The need for higher level imaging evaluation should be determined on a clinical basis. Progressive atrophy and nonspecific white matter disease. Chronic incidental findings. Interpreted By: Nguyen Owens MD, 12/09/2018 2:54 PM XR CHEST PORTABLE Final Result by User, [id number] (12/09 4116) EXAM: CHEST RADIOGRAPH INDICATION: Numbness right arm and face. Hypertension. TECHNIQUE: Supine Portable AP view COMPARISON: CXR only from 09/20/2015 FINDINGS: After accounting for slightly rotated positioning stable mild tracheal deviation towards right attributed to mass effect from adjacent tortuous slightly ectatic aorta. No cardiomegaly. Stable appearance of hilar structures. Some new minimal haziness at the bilateral bases in part attributed to summation artifact. Some of this may be related to scarring and/or atelectasis. No overt congestion, focal lung consolidation, or new area of bronchial cuffing/perihilar opacities. Stable faint curvilinear calcification projecting over mid right lung compared to chest radiograph from 06/21/2014. Given longevity with stability, this favors findings of low malignant potential. Partially imaged right shoulder arthroplasty hardware, osteopenia, and some degenerative changes. Progressive mild bone deformity of the left proximal humerus with known superimposed calcifications. IMPRESSION: Minimal new bibasilar haziness with differential detailed above. Additional stable and chronic findings, as detailed above. Interpreted By: Nguyen Owens MD, 12/09/2018 2:49 PM LABS Results for orders placed or performed during the hospital encounter of 12/09/18 CBC W/DIFF AUTOMATED Result Value Ref Range WBC 11.9 (H) 4.5 - 10.8 x10'3/uL RBC 3.96 (L) 4.10 - 5.40 x10'6/uL HGB 12.1 12.0 - 16.0 G/DL HCT 37.7 36.0 - 47.0 % MCV 95.2 78.0 - 100.0 FL MCH 30.6 27.0 - 31.0 PG MCHC 32.1 (L) 33.0 - 36.0 G/DL RDW 13.2 11.5 - 14.5 % PLT 323 150 - 350 x10'3/uL MPV 9.7 7.4 - 10.4 FL Differential Comment NORMAL REFERENCE RANGE NOT ESTABLISHED FOR THE PROPORTIONAL LEUKOCYTE DIFFERENTIAL. SEG NEUTROPHILS 81.1 % LYMPHOCYTES 11.5 % MONOCYTES 6.0 % EOSINOPHILS 0.8 % BASOPHILS 0.3 % IMMATURE GRANS 0.3 % NRBC 0.0 % ABS. NEUTROPHILS 9.66 (H) 1.60 - 8.30 x10'3/uL ABS. LYMPHOCYTES 1.37 0.80 - 4.70 x10'3/uL ABS. MONOCYTES 0.72 0.00 - 1.50 x10'3/uL ABS. EOSINOPHILS 0.09 0.00 - 0.40 x10'3/uL ABS. BASOPHILS 0.04 0.00 - 0.20 x10'3/uL ABS. IMMATURE GRANULOCYTES 0.04 (H) 0.00 - 0.03 x10'3/uL ABS. NUCLEATED RBC'S 0.00 0.00 x10'3/uL COMPREHENSIVE METABOLIC PANEL Result Value Ref Range SODIUM 142 136 - 145 MMOL/L POTASSIUM 4.4 3.5 - 5.1 MMOL/L CHLORIDE 106 98 - 107 MMOL/L CO2 25.4 21.0 - 32.0 MMOL/L GLUCOSE 109 (H) 70 - 99 MG/DL BUN 23 6 - 24 MG/DL CREATININE 1.82 (H) 0.55 - 1.02 MG/DL CALCIUM 9.2 8.4 - 10.5 MG/DL TOTAL BILIRUBIN 0.4 0.2 - 1.0 MG/DL ALK PHOS 115 55 - 142 U/L AST 21 15 - 37 U/L ALT 18 14 - 59 U/L TOTAL PROTEIN 6.7 6.4 - 8.2 G/DL ALBUMIN 3.2 (L) 3.4 - 5.0 G/DL ANION GAP 10.6 5.0 - 15.0 MMOL/L OSMOLALITY (CALC) 298 MOSM/KG eGFR Non-Afr. Amer. 28 (L) >89 ML/MIN/1.73 M2 eGFR Afr. Amer. 33 (L) >89 ML/MIN/1.73 M2 GFR NOTES THE ESTIMATED GFR IS CALCULATED USING THE 2009 CKD-EPI EQUATION. THE FOLLOWING CATEGORIES FOR GRADING RENAL FUNCTION ARE RECOMMENDED BY THE INTERNATIONAL SOCIETY OF NEPHROLOGY (KDIGO 2012 CLINICAL PRACTICE GUIDELINE). PROTIME/INR, VENOUS Result Value Ref Range Protime 11.6 10.8 - 13.2 SEC INR 1.0 0.9 - 1.1 PARTIAL THROMBOPLASTIN TIME,PTT Result Value Ref Range PTT 33.7 27.5 - 38.9 SEC ED MEDICATIONS Medications - No data to display PROCEDURES Procedures CONSULTS: ED COURSE & MEDICAL DECISION MAKING MDM This is a complicated clinical picture on a 68-year-old with right-sided facial and arm numbness aswell as some questionable leg gait abnormality. Her neurologic exam did not fit any typical patternfor ischemic stroke and yet her CT scan images were surprising to me as it looks like she had an intracranial hemorrhage. Fortunately the radiologist reads this as calcifications apparently which sheis had in the past. But because she is symptomatic and likely as result of these calcifications I discussed the case with the on-call neurologist at [facility] in [place] Dr. Palacio who recommended MRI and MRA of the brain on a nonurgent basis and does not feel the patient needs to be transferred as there is no particular treatment for the basal ganglial calcifications. I did speak to MRI and[facility] scheduling and they will be contacting the patient to schedule the MRI and MRA which I ordered for this week. Patient will then follow-up with her primary care physician and may need neurology consultation in our facility in the future as well. FINAL IMPRESSION Medications - No data to display Discharge Medication List as of 12/09/2018 3:46 PM Jasson Cueva MD [address] [place], [place] [phone] this week for results of the MRI SNOMED CT(R) 1. Paresthesia of right arm PARESTHESIA OF RIGHT UPPER LIMB Jasson Cueva MD [address] [place], [place] [phone] this week for results of the MRI Discharge Medication List as of 12/09/2018 3:46 PM Karthikeyan Power, 12/09/18, 16:47. Provider Attestation: Portions of this note were transcribed by the scribe. I, Gabriella Reddy, personally performed the history, physical exam and medical decision making; and confirmed the accuracy of the information inthe transcribed note. Authenticated by Gabriella Reddy MD 12/09/18 3244 documented in this encounter Plan of Treatment Not on file documented as of this encounter Procedures Procedure Name Priority Date/Time Associated Diagnosis Comments XR CHEST PORTABLE STAT 12/09/2018 2:[address] HEAD WO CON STAT 12/09/2018 2:38 PM CDT PARTIAL THROMBOPLASTIN TIME,PTT STAT 12/09/2018 1:51 PM CDT PROTHROMBIN TIME, VENOUS STAT 12/09/2018 1:51 PM CDT COMPREHENSIVE METABOLIC PANEL STAT 12/09/2018 1:51 PM CDT CBC W/DIFF AUTOMATED STAT 12/09/2018 1:51 PM CDT ECG 12-LEAD STAT 12/09/2018 1:38 PM CDT documented in this encounter Results * XR CHEST PORTABLE (12/09/2018 2:41 PM CDT) Anatomical Region Laterality Modality Chest Radiographic Sharon ging 12/09/2018 2:49 PM CDT Impressions 12/09/2018 2:54 PM CDT IMPRESSION: Minimal new bibasilar haziness with differential detailed above. Additional stable and chronic findings, as detailed above. ?? Interpreted By: Nguyen Owens MD, 12/09/2018 2:49 PM Narrative 12/09/2018 2:54 PM CDT EXAM: CHEST RADIOGRAPH INDICATION: Numbness right arm and face. Hypertension. TECHNIQUE: Supine Portable AP view COMPARISON: CXR only from 09/20/2015 FINDINGS: After accounting for slightly rotated positioning stable mild tracheal deviation towards right attributed to mass effect from adjacent tortuous slightly ectatic aorta. No cardiomegaly. Stable appearance of hilar structures. Some new minimal haziness at the bilateral bases in part attributed to summation artifact. Some of this may be related to scarring and/or atelectasis. No overt congestion, focal lung consolidation, or new area of bronchial cuffing/perihilar opacities. Stable faint curvilinear calcification projecting over mid right lung compared to chest radiograph from 06/21/2014. Given longevity with stability, this favors findings of low malignant potential. Partially imaged right shoulder arthroplasty hardware, osteopenia, and some degenerative changes. Progressive mild bone deformity of the left proximal humerus with known superimposed calcifications. Procedure Note Nguyen Owens MD - 12/09/2018 EXAM: CHEST RADIOGRAPH INDICATION: Numbness right arm and face. Hypertension. TECHNIQUE: Supine Portable AP view COMPARISON: CXR only from 09/20/2015 FINDINGS: After accounting for slightly rotated positioning stable mild tracheal deviation towards right attributed to mass effect from adjacent tortuous slightly ectatic aorta. No cardiomegaly. Stable appearance of hilar structures. Some new minimal haziness at the bilateral bases in part attributed to summation artifact. Some of this may be related to scarring and/or atelectasis. No overt congestion, focal lung consolidation, or new areaof bronchial cuffing/perihilar opacities. Stable faint curvilinear calcification projecting over mid right lung compared to chestradiograph from 06/21/2014. Given longevity with stability, this favors findings oflow malignant potential. Partially imaged right shoulder arthroplasty hardware, osteopenia, andsome degenerative changes. Progressive mild bone deformity of the leftproximal humerus with known superimposed calcifications. IMPRESSION: Minimal new bibasilar haziness with differential detailed above. Additional stable and chronic findings, as detailed above. Interpreted By: Nguyen Owens MD, 12/09/2018 2:49 PM Gabriella Reddy MD GENERAL IMAGING Final Result * CT HEAD WO CON (12/09/2018 2:38 PM CDT) Anatomical Region Laterality Modality Head Computed Tomogra phy 12/09/2018 2:54 PM CDT Impressions 12/09/2018 3:02 PM CDT IMPRESSION: Compromised evaluation due to prominent basal ganglia calcifications but overall fairly similar to prior study. Within study demonstrates no superimposed acute intracranial hemorrhage is suggested. The need for higher level imaging evaluation should be determined on a clinical basis. Progressive atrophy and nonspecific white matter disease. Chronic incidental findings. Interpreted By: Nguyen Owens MD, 12/09/2018 2:54 PM Narrative 12/09/2018 3:02 PM CDT EXAM: CT HEAD WITHOUT CONTRAST INDICATION: Acute right facial and arm numbness. Evaluate for acute cerebral infarct. TECHNIQUE: Contiguous unenhanced 3 mm axial slices from skull vertex to vault. A dose lowering technique was utilized for this procedure which may include but is not limited to dose reduction techniques, automated exposure control, and/or the use of iterative reconstruction in accordance with ALARA principle. COMPARISON: CT head 06/21/2014 FINDINGS: There is progressive mild cerebral atrophy with bifrontal predominance. Extensive progressive confluent periventricular and subcortical white matter hypoattenuation. Superimposed bilateral multifocal extensive basal ganglia calcifications again noted, to a greater degree on the left when compared the right. Similar changes noted on prior study, relatively unchanged given differences in technique. Some calcified atherosclerotic plaque. No superimposed acute intracranial hemorrhage suggested within study constraints. No pathologic extra-axial fluid collection. No midline structural shift or focal edema in a major vascular distribution to suggest acute infarction. The ventricular system and cisternal spaces demonstrate no significant abnormality. ?? Globes are intact. ? Partially imaged nasal septal bony deformity. Some mild thickening and partial opacification of several bilateral ethmoid air cells. No paranasal sinus air-fluid level. The mastoid air cells are well pneumatized. ?? Procedure Note Nguyen Owens MD - 12/09/2018 EXAM: CT HEAD WITHOUT CONTRAST INDICATION: Acute right facial and arm numbness. Evaluate for acute cerebral infarct. TECHNIQUE: Contiguous unenhanced 3 mm axial slices from skull vertex to vault. A dose lowering technique was utilized for this procedure whichmay include but is not limited to dose reduction techniques, automatedexposure control, and/or the use of iterative reconstruction in accordance with ALARA principle. COMPARISON: CT head 06/21/2014 FINDINGS: There is progressive mild cerebral atrophy with bifrontal predominance. Extensive progressive confluent periventricular and subcortical white matter hypoattenuation. Superimposed bilateralmultifocal extensive basal ganglia calcifications again noted, to a greater degreeon the left when compared the right. Similar changes noted on prior study, relatively unchanged given differences in technique. Some calcified atherosclerotic plaque. No superimposed acute intracranial hemorrhage suggested within study constraints. No pathologic extra-axial fluid collection. No midline structural shift or focal edema in a major vasculardistribution to suggest acute infarction. The ventricular system and cisternal spaces demonstrate no significant abnormality. Globes are intact. Partially imaged nasal septal bony deformity. Some mild thickening and partial opacification of several bilateralethmoid air cells. No paranasal sinus air-fluid level. The mastoid air cells are well pneumatized. IMPRESSION: Compromised evaluation due to prominent basal ganglia calcifications but overall fairly similar to prior study. Within study demonstrates no superimposed acute intracranial hemorrhage is suggested. The need for higher level imaging evaluation should be determined on a clinicalbasis. Progressive atrophy and nonspecific white matter disease. Chronic incidental findings. Interpreted By: Nguyen Owens MD, 12/09/2018 2:54 PM us Gabriella Reddy MD CT Final Result * PARTIAL THROMBOPLASTIN TIME,PTT (12/09/2018 1:51 PM CDT) PTT 33.7 27.5 - 38.9 SEC 12/09/2018 2:09 PM CDT [facility] Comment:THERAPEUTIC RANGE: 4 9.8-83.0 SEC 12/09/2018 1:51 PM CDT us Gabriella Reddy MD LABORATORY Final Result Performing Organization Address City/[facility]/ZIP Co de Phone Number [facility] [address] [place] [address], * PROTIME/INR, VENOUS (12/09/2018 1:51 PM CDT) PROTIME 11.6 10.8 - 13.2 SEC 12/09/2018 2:09 PM CDT [facility] INR 1.0 0.9 - 1.1 12/09/2018 2:09 PM CDT [facility] 12/09/2018 1:51 PM CDT us Gabriella Reddy MD LABORATORY Final Result [facility] [address] [place] [address], * (ABNORMAL) COMPREHENSIVE METABOLIC PANEL (12/09/2018 1:51 PM CDT) SODIUM S/P/B 142 136 - 145 MMOL/L 12/09/2018 2:13 PM CDT [facility] POTASSIUM S/P/B 4.4 3.5 - 5.1 MMOL/L 12/09/2018 2:13 PM T [facility] CHLORIDE S/P/B 106 98 - 107 MMOL/L 12/09/2018 2:13 PM T [facility] CO2 25.4 21.0 - 32.0 MMOL/L 12/09/2018 2:13 PM CDT [facility] GLUCOSE 109(H) 70 - 99 MG/DL 12/09/2018 2:13 PM T [facility] Comment: FASTING GLUCOSE 100 TO 125 MG/DL IS CONSISTENT WITH IMPAIRED FASTING GLUCOSE. FASTING GLUCOSE >125 MG/DL IS CONSISTENT WITH DIABETES. RANDOM GLUCOSE >200 MG/DL WITH HYPERGLYCEMIC SYMPTOMS IS CONSISTENT WITH DIABETES. PER ADA GUIDELINES BUN 23 6 - 24 MG/DL 12/09/2018 2:13 PM T [facility] CREATININE S/P/B 1.82(H) 0.55 - 1.02 MG/DL 12/09/2018 2:13 PM CDT [facility] CALCIUM S/P/B 9.2 8.4 - 10.5 MG/DL 12/09/2018 2:13 PM T [facility] BILIRUBIN TOTAL S/P/B 0.4 0.2 - 1.0 MG/DL 12/09/2018 2:13 PM T [facility] ALKALINE PHOSPHATASE S/P/B 115 55 - 142 U/L 12/09/2018 2:13 PM T [facility] AST 21 15 - 37 U/L 12/09/2018 2:13 PM T [facility] ALT 18 14 - 59 U/L 12/09/2018 2:13 PM T [facility] TOTAL PROTEIN S/P/B 6.7 6.4 - 8.2 G/DL 12/09/2018 2:13 PM T [facility] ALBUMIN S/P/B 3.2(L) 3.4 - 5.0 G/DL 12/09/2018 2:13 PM CDT [facility] ANION GAP 10.6 5.0 - 15.0 MMOL/L 12/09/2018 2:13 PM CDT [facility] OSMOLALITY (CALC) 298 MOSM/KG 12/09/2018 2:13 PM CDT [facility] Comment:REFERENCE RANGE NOT ESTABLISHED EGFR NON-AFR. AMER. 28(L) >89 ML/MIN/1 .73 M2 12/09/2018 2:13 PM CDT [facility] EGFR AFR. AMER. 33(L) >89 ML/MIN/1 .73 M2 12/09/2018 2:13 PM CDT [facility] GFR NOTES THE ESTIMATED GFR IS CALCULATED USING THE 2009 CKD-EPI EQUATION. THE FOLLOWING CATEGORIES FOR GRADING RENAL FUNCTION ARE RECOMMENDED BY THE INTERNATIONAL SOCIETY OF NEPHROLOGY (KDIGO 2012 CLINICAL PRACTICE GUIDELINE). 12/09/2018 2:13 PM CDT [facility] Comment: G1,NORMAL OR HIGH: >89 ml/min/1.73 m2 G2,MILDLY DECREASED: 60-89 ml/min/1.73 m2 G3A,MILDLY TO MODERATELY DECREASED: 45-59 ml/min/1.73 m2 G3B,MODERATELY TO SEVERELY DECREASED: 30-44 ml/min/1.73 m2 G4,SEVERELY DECREASED: 15-29 ml/min/1.73 m2 G5,KIDNEY FAILURE: <15 ml/min/1.73 m2 12/09/2018 1:51 PM CDT Gabriella Reddy MD LABORATORY Final Result [facility] [address] [place] [address], * (ABNORMAL) CBC W/DIFF AUTOMATED (12/09/2018 1:51 PM CDT) WBC 11.9(H) 4.5 - 10.8 x10'3/uL 12/09/2018 2:00 PM CDT [facility] RBC 3.96(L) 4.10 - 5.40 x10'6/uL 12/09/2018 2:00 PM CDT [facility] HGB 12.1 12.0 - 16.0 G/DL 12/09/2018 2:00 PM CDT [facility] HCT 37.7 36.0 - 47.0 % 12/09/2018 2:00 PM CDT [facility] MCV 95.2 78.0 - 100.0 FL 12/09/2018 2:00 PM CDT [facility] MCH 30.6 27.0 - 31.0 PG 12/09/2018 2:00 PM CDT [facility] MCHC 32.1(L) 33.0 - 36.0 G/DL 12/09/2018 2:00 PM CDT [facility] RDW 13.2 11.5 - 14.5 % 12/09/2018 2:00 PM CDT [facility] PLT 323 150 - 350 x10'3/uL 12/09/2018 2:00 PM CDT [facility] MPV 9.7 7.4 - 10.4 FL 12/09/2018 2:00 PM CDT [facility] DIFFERENTIAL COMMENT NORMAL REFERENCE RANGE NOT ESTABLISHED FOR THE PROPORTIONAL LEUKOCYTE DIFFERENTIAL. 12/09/2018 2:00 PM CDT [facility] SEG NEUTROPHILS 81.1 % 9 2:00 PM CDT [facility] LYMPHOCYTES 11.5 % 12/09/2018 2:00 PM CDT [facility] MONOCYTES 6.0 % 12/09/2018 2:00 PM CDT [facility] EOSINOPHILS 0.8 % 12/09/2018 2:00 PM CDT [facility] BASOPHILS 0.3 % 12/09/2018 2:00 PM CDT [facility] IMMATURE GRANS % 0.3 % 12/10/19 19 2:00 PM CDT [facility] NRBC 0.0 % 12/09/2018 2:00 PM CDT [facility] ABS. NEUTROPHILS 9.66(H) 1.60 - 8.30 x10'3/uL 12/09/2018 2:00 PM CDT [facility] ABS. LYMPHOCYTES 1.37 0.80 - 4.70 x10'3/uL 12/09/2018 2:00 PM CDT [facility] ABS. MONOCYTES 0.72 0.00 - 1.50 x10'3/uL 12/09/2018 2:00 PM CDT [facility] ABS. EOSINOPHILS 0.09 0.00 - 0.40 x10'3/uL 12/09/2018 2:00 PM CDT [facility] ABS. BASOPHILS 0.04 0.00 - 0.20 x10'3/uL 12/09/2018 2:00 PM CDT [facility] ABS. IMMATURE GRANULOCYTES 0.04(H) 0.00 - 0.03 x10'3/uL 12/09/2018 2:00 PM CDT [facility] ABS. NUCLEATED RBC'S 0.00 0.00 x10'3/uL 12/09/2018 2:00 PM CDT [facility] 12/09/2018 1:51 PM CDT us Gabriella Reddy MD LABORATORY Final Result [facility] [address] [place] [address], * ECG 12 lead (12/09/2018 1:38 PM CDT) 12/09/2018 1:[address] [facility] - 12/09/2018 9:59 PM CDT ? [facility] ?[address] [place] ??[address] ? Test Date: ?2018-12-09 Pat Name: ? ALAYNA WAITE ?Department: ? Room: ? Gender: ? Female ? Commissions Coordinator: ?? AH : ?1950 ? Requested By: GABRIELLA REDDY Order Number: [id number] ? Reading MD: ?? Ashley Quintanilla ? Measurements Intervals ?[place] ? Rate: ? 87 ? P: ?32 HI: ? 134 ?QRS: ?-59 QRSD: ? 85 ? T: ?49 QT: ? 356 ? QTc: ?431 ? Interpretive Statements SINUS RHYTHM INFERIOR MYOCARDIAL INFARCTION , OF INDETERMINATE AGE Poor R Wave Progression Procedure Note Ashley Quintanilla MD - 12/09/[address] [place] [address] Test Date: 2018-12-09 Pat Name: ALAYNA WAITE Department: Room: Gender: Female Commissions Coordinator: : 1950 Requested By: GABRIELLA REDDY Order Number: [id number] Reading MD: Ashley Quintanilla Measurements Intervals [place] Rate: 87 P: 32 HI: 134 QRS: -59 QRSD: 85 T: 49 QT: 356 QTc: 431 Interpretive Statements SINUS RHYTHM INFERIOR MYOCARDIAL INFARCTION , OF INDETERMINATE AGE Poor R Wave Progression us Gabriella Reddy MD ECG ORDERABLES Final Result Performing Organization Address City/State/[facility] Co de Phone Number [facility] documented in this encounter Visit Diagnoses Diagnosis Paresthesia of right arm- Primary Disturbance of skin sensation documented in this encounter Care Teams Purchasing And Fiscal Clerk Relationship Specialty Start Date End Date Jasson Cueva MD [address] [place] [address] PCP - General FAMILY PRACTICE 11/03/18 documented as of this encounter
--- OUTSIDE RECORDS SUMMARY | 2024-03-19 18:41 | XMS_ITS | Encounter Summary ---
Author Organization [facility] Address [address] [place] [address]. [place], [place] [address] [place] [address] Care Team Providers Care Metal Fabricator Welder Name Role Phone Jasson Cueva MD Primary Care Provider Encounter Details Date Type Department Care Team (Late st Contact Info) Description 11/22/2018 Orders Only [facility] [address] [address] Jessica Hill, [address] [place] [phone] Social History Tobacco Use Types Packs/Day Years Used Date Smoking Tobacco: Every Day Cigarettes Smokeless Tobacco: Never Alcohol Use Standard Drinks/Week Comments Yes 0 (1 standard drink = 0.6 oz pur e alcohol) Comments No Sex and Gender Information Value Date Recorded Sex Assigned at Not on file 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
--- OUTSIDE RECORDS SUMMARY | 2024-03-19 18:41 | XMS_ITS | Encounter Summary ---
Author Organization [facility] Address [address] [place] [address]. [place], [place] [address] [place] [address] Care Team Providers Care Special Officer Automat Name Role Phone Jasson Cueva MD Primary Care Provider [phone] Reason for Referral * Physical Medicine (Routine) - Closed Specialty Diagnoses / Procedures Referred By Jayce coronado Referred To Contact PHYSICAL THERAPY Diagnoses Aftercare following right shoulder joint replacement surgery Jessica Hill FNP-BC [address] [place] [address] Phone: tel: fax: [facility] [address] Phone: tel: fax: Referral ID Status Reason Start Date Expiration Date V isits Requested Visits Authorized [id number] Closed Physical Therapy 12/30/2018 01/30/2020 1 1 Reason for Visit * Reason Comments Shoulder Pain Right Encounter Details Date Type Department Care Team (Late st Contact Info) Description 12/30/2018 10:45 AM CDT Office Visit [facility] [address] [place] [address] [address] [place] [address] Jessica Hill FNP-BC [address] [place] [phone] Shoulder Pain (Right) Social History Tobacco Use Types Packs/Day Years Used Date Smoking Tobacco: Every Day Cigarettes Smokeless Tobacco: Never Alcohol Use Standard Drinks/Week Comments Yes 0 (1 standard drink = 0.6 oz pur e alcohol) Comments No Sex and Gender Information Value Date Recorded Sex Assigned at Not on file Legal 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 She is not taking anything for pain. She reports numbness and tingling in her hand but it is getting better. She reports her pain is under her armpit. She reports her night pain is getting better. She had a strokeabout 3 weeks after her surgery. Her stroke did cause some residual RIGHT sided numbness and weaknes s. She is currently on blood thinners and taking new medication to assist with her nerve pain. PE: EXAM of RIGHT shoulder today reveals incision healed without redness warmth or swelling, full elbow range of motion forward flexion 120, abduction 90, limited external rotation, internal rotationto posterior lateral belt line, palpable radial pulse. Assessment: Encounter Diagnose(s) ICD-10-CM ICD-9-CM SNOMED CT(R) 1. Aftercare following right shoulder joint replacement surgery Z47.1 V54.81 PATIENT ENCOUNTER STATUS XR SHOULDER RT MIN 2V Z96.611 V43.61 AMB REFERRAL TO PHYSICAL THERAPY Results: XRAY of RIGHT shoulder today reveals hardware in stable positioning without signs of loosening and progressive healing of proximal humerus fracture with exuberant callous formation. Plan: She did have a set back with a stroke roughly 2 weeks post operatively but overall is doing well and is starting to increase her activity. She will continue with physical therapy and work on her range of motion. She will follow up in 6 weeks for reevaluation. Instructions: Continue with treatment plan and You may continue or resume your normal level of activity Follow up: Return in about 6 weeks (around 02/10/2019) for Visit with Imaging. CHANDNI CHIANG documented in this encounter Plan of Treatment Scheduled Referrals Name Type Priority Associated Diagnoses Orde r Schedule Ambulatory referral to Physical Therapy Referral Routine Aftercare following right shoulder joint replacement surgery Ordered: 12/30/2018 documented as of this encounter Results * XR SHOULDER RT MIN 2V (12/30/2018 11:23 AM CDT) Anatomical Region Laterality Modality Shoulder Radiographic Sharon ging 12/30/2018 11:4 1 AM CDT Impressions 12/30/2018 11:43 AM CDT IMPRESSION: Reverse arthroplasty right glenohumeral joint. Probable healed fracture proximal right humerus. Interpreted By: Carmelo Coleman MD, 12/30/2018 11:41 AM Narrative 12/30/2018 11:43 AM CDT 12/30/2018, 1057 hours. HISTORY: Follow-up shoulder arthroplasty. EXAM: 2 views of the right shoulder with correlation to study 12/06/2018. FINDINGS: Reverse arthroplasty right glenohumeral joint. Glenoid component of prosthesis is fixed to the glenoid the scapula by screws. The stem of the humeral component of prosthesis is central in the medullary canal the femur, cemented in place proximally. The periosteal new bone seen at the level the proximal diaphysis of the humerus on the lateral cortex, apparently related to a healing or healed fractures more organized compared to the previous study. No new fracture or acute bony abnormality. No gross bone destruction. Procedure Note Carmelo Coleman MD - 12/30/2018 12/30/2018, 1057 hours. HISTORY: Follow-up shoulder arthroplasty. EXAM: 2 views of the right shoulder with correlation to study 12/06/2018. FINDINGS: Reverse arthroplasty right glenohumeral joint. Glenoidcomponent of prosthesis is fixed to the glenoid the scapula by screws. The stem of the humeral component of prosthesis is central in the medullary canalthe femur, cemented in place proximally. The periosteal new bone seen at the level the proximal diaphysis of the humerus on the lateral cortex, apparently related to a healing or healed fractures more organizedcompared to the previous study. No new fracture or acute bony abnormality. Nogross bone destruction. IMPRESSION: Reverse arthroplasty right glenohumeral joint. Probable healed fracture proximal right humerus. Interpreted By: Carmelo Coleman MD, 12/30/2018 11:41 AM Jessica Juma Hill KETTLE COOK-BC GENERAL IMAGING Final Resu lt documented in this encounter Visit Diagnoses Diagnosis Aftercare following right shoulder joint replacement surgery- Primary Aftercare following right shoulder joint replacement surgery documented in this encounter Care Teams Special Officer Automat Relationship Specialty Start Date End Date Jasson Cueva MD [address] [place] [phone] PCP - General FAMILY PRACTICE 11/03/18 documented as of this encounter
--- OUTSIDE RECORDS SUMMARY | 2024-03-19 18:41 | XMS_ITS | Encounter Summary ---
Author Organization [facility] Address [address] [place] [address]. [place], [place] [address] [place] [address] Care Team Providers Care Grid Trimmer Name Role Phone Jasson Cueva MD Primary Care Provider [phone] Encounter Details Date Type Department Care Team (Late st Contact Info) Description 12/02/2018 Orders Only [facility] [place] [address] Jessica Hill, [facility] [address] [place] [address] [place] [address] Social History Tobacco Use Types Packs/Day Years Used Date Smoking Tobacco: Every Day Cigarettes Smokeless Tobacco: Never Alcohol Use Standard Drinks/Week Comments Yes 0 (1 standard drink = 0.6 oz pur e alcohol) Comments No Sex and Gender Information Value Date Recorded Sex Assigned at Not on file Legal 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 DIRECTOR OF IN SERVICE 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 Gender Identity Not on file Sexual Orientation [...] Interpreted By: Jeovanny Thacker, 12/07/2018 3:24 AM us Jessica M Sergio ASSISTANT TO THE VICE PRESIDENT-BC GENERAL IMAGING Final Resu lt documented in this encounter Visit Diagnoses Diagnosis Aftercare following surgery- Primary Encounter for other specified aftercare Closed fracture of right proximal humerus Closed fracture of unspecified part of upper end of humerus Aftercare following surgery Encounter for other specified aftercare Closed fracture of right proximal humerus Closed fracture of unspecified part of upper end of humerus documented in this encounter Care Teams Grid Trimmer Relationship Specialty Start Date End Date Jasson Cueva MD [address] [place] [phone] PCP - General FAMILY PRACTICE 11/03/18 documented as of this encounter
--- OUTSIDE RECORDS SUMMARY | 2024-03-19 18:41 | XMS_ITS | Encounter Summary ---
Author Organization [facility] Address [address] [place] [address]. [place] [address] [place] [address] Care Team Providers Care Bisque Grader Name Role Phone Jasson Cueva MD Primary Care Provider [phone] Huber Milligan MD Unavailable [phone] Norm Hopkins MD Unavailable [phone] Reason for Visit * Reason Onset Date Comments Schedule Test 12/23/2018 CTA Encounter Details Date Type Department Care Team (Late st Contact Info) Description 12/23/2018 Telephone [facility] [address] [place] [address] Huber Milligan MD 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 * Sarah Box RN - 06/24/2019 2:47 PM CDT Will push out until July. * Debora Silverman - 04/30/2019 1:38 PM CST appt 06/22 at 220pm in round top EILLANCE TECHNICIAN * Sharon Villa RN - 04/30/2019 1:19 PM CST Please offer her follow up in [place] here in [place]. If can't make it to [place] than offerher first available in [place]. Thanks!! EILLANCE TECHNICIAN * Lissette Nick - 04/29/2019 2:49 PM CST [facility] does not have nay openings until September 04 in [place]. Unless you want us to double book? EILLANCE TECHNICIAN * Sharon Villa RN - 04/29/2019 10:08 AM CST See other encounter in regards to this. CTA canceled due to creatinine level. Will hold off on ordering any further testing until he sees her at her follow-up appt. Please call and arrange an appt for follow-up in June. Thanks!! Villa RN - 04/15/2019 9:19 AM CST CTA head canceled. Nothing rescheduled at this time. * Sharon Villa RN - 04/14/2019 7:45 AM CST CTA head rescheduled to 04/14/19 at 10am. Patient still needs follow-up in June in [place]. EILLANCE TECHNICIAN * Sharon Villa RN - 12/23/2018 1:35 PM CDT CTA head ordered to be done for 04/11/2019 and will get pre-certed and scheduled by referral center at [place] Patient will need follow-up in June in [place] when schedule opens up. documented in this encounter Plan of Treatment Not on file documented as of this encounter Visit Diagnoses Not on filedocumented in this encounter Care Teams Bisque Grader Relationship Specialty Start Date End Date Jasson Cueva MD [address] [place] [phone] PCP - General FAMILY PRACTICE 11/03/18 Huber Milligan MD [address] [place] [phone] Consulting Physician Vascular Neurology 04/30/19 Norm Hopkins MD [address] [place] [address] Consulting Physician CLINICAL CARDIAC ELECTROPHYSIOLOGY 04/30/19 documented as of this encounter
--- OUTSIDE RECORDS SUMMARY | 2024-03-19 18:41 | XMS_ITS | Encounter Summary ---
Author Organization [facility] Address [address] [place] [address]. [place], [place] [address] [place] [address] Care Team Providers Care Oven Heater Helper Name Role Phone Jasson Cueva MD Primary Care Provider [phone] Encounter Details Date Type Department Care Team (Late st Contact Info) Description 12/30/2018 11:14 AM CDT - 12/30/2018 11:59 PM CDT Hospital Encounter 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 30 tablet 11 12/20/2018 09/03/2019 clopidogrel (PLAVIX) 75 MG tabletIndication s:Ischemic stroke ([facility]) Take 1 tablet (75 mg total) by mouth daily for 21 days. 21 tablet 12/20/2018 01/10/2019 gabapentin 300 MG capsuleIndicatio ns:Neuropathic pain Take [...] Comments XR SHOULDER RT MIN 2V Routine 12/30/2018 11:23 AM CDT Aftercare following right shoulder joint replacement surgery documented in this encounter Results * XR [...] By: Carmelo Coleman MD, 12/30/2018 11:41 AM us Jessica Hill INVERTED BLOCK OPERATOR-BC GENERAL IMAGING Final Resu lt documented in this encounter Visit Diagnoses Diagnosis Aftercare following right shoulder joint replacement surgery documented in this encounter Care Teams Oven Heater Helper Relationship Specialty Start Date End Date Jasson Cueva MD [address] [place] [phone] PCP - General FAMILY PRACTICE 11/03/18 documented as of this encounter
--- OUTSIDE RECORDS SUMMARY | 2024-03-19 18:41 | XMS_ITS | Encounter Summary ---
Author Organization [facility] Address [address] [place] [address]. [place], [place] [address] [place] [address] Care Team Providers Care Finisher Hand Name Role Phone Jasson Cueva MD Primary Care Provider Encounter Details Date Type Department Care Team (Late st Contact Info) Description 01/31/2019 Orders Only [facility] [address] Jessica Hill, [facility] [address] [facility] [place] [address] Social History Tobacco Use Types Packs/Day Years Used Date Smoking Tobacco: Every Day Cigarettes Smokeless Tobacco: Never Alcohol Use Standard Drinks/Week Comments Yes 0 (1 standard drink = 0.6 oz pur e alcohol) Comments No Sex and Gender Information Value Date Recorded Sex Assigned at Not on file Legal 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 VP TRAINING Gender Identity Not on file Sexual Orientation [...] following right shoulder joint replacement surgery- Primary documented in this encounter Care Teams Finisher Hand Relationship Specialty Start Date End Date Jasson Cueva MD [address] [place] [phone] PCP - General FAMILY PRACTICE 11/03/18 documented as of this encounter
--- OUTSIDE RECORDS SUMMARY | 2024-03-19 18:41 | XMS_ITS | Encounter Summary ---
Author Organization [facility] Address [address] [place] [address]. [place], [place] [address] [place] [address] Care Team Providers Care Submarine Element Coordinator Name Role Phone Jasson Cueva MD Primary Care Provider Reason for Referral * Imaging (Routine) - Closed Specialty Diagnoses / Procedures Referred By Contac t Referred To Contact RADIOLOGY Diagnoses Basal ganglia degeneration with calcification ([facility]) Procedures MRI BRAIN WO CON MRI BRAIN WO+MRA BRAIN WO Cal Dupree MD Phone: tel: fax: Referral ID Status Reason Start Date Expiration Date Visits Re quested Visits Authorized [id number] Closed 12/09/2018 01/09/2020 1 1 Encounter Details Date Type Department Care Team (Late st Contact Info) Description 12/09/2018 Orders Only [facility] Pre Access Team [address] [place] [address] Cal Dupree MD [address] [place] [address] Social History Tobacco Use Types Packs/Day Years Used Date Smoking Tobacco: Every Day Cigarettes Smokeless Tobacco: Never Alcohol Use Standard Drinks/Week Comments Yes 0 (1 standard drink = 0.6 oz pur e alcohol) Comments No Sex and Gender Information Value Date Recorded Sex Assigned at Not on file Legal 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 COMPENSATION COORDINATOR Gender Identity Not on file Sexual [...] documented as of this encounter Results * MRI BRAIN WO [...] By: Dann Sarmiento MD, 12/12/2018 7:55 AM Cal Dupree MD MRI Final Result documented in this encounter Visit Diagnoses Diagnosis Basal ganglia degeneration with calcification (CMS/HCC [facility])- Primary Other degenerative diseases of the basal ganglia Numbness on right side documented in this encounter Care Teams Submarine Element Coordinator Relationship Specialty Start Date End Date Jasson Cueva MD [address] [place] [phone] PCP - General FAMILY PRACTICE 11/03/18 documented as of this encounter
--- OUTSIDE RECORDS SUMMARY | 2024-03-19 18:41 | XMS_ITS | Encounter Summary ---
Author Organization [facility] Address [address] [place] [address]. [place], [place] [id number] [place] [address] Care Team Providers Care Optical Glass Etcher Name Role Phone Jasson Cueva MD Primary Care Provider [phone] Huber Milligan MD Unavailable [phone] Norm Hopkins MD Unavailable [phone] Reason for Referral * Consultation (Routine) - Closed Specialty Diagnoses / Procedures Referred By Contact Referred To Contact CLINICAL CARDIAC ELECTROPHYSIOLOGY / Cardiology Diagnoses Cryptogenic stroke ([facility]/HCC [facility]) Huber Milligan MD [address] [place] [phone] Phone: tel:[phone] fax:[phone] [facility] [address] [place] [address] Phone: tel: fax: Referral ID Status Reason Start Date Expiration Date V isits Requested Visits Authorized [id number] Closed Specialty Services 04/28/2019 05/26/2020 1 1 E ADMINISTRATOR Reason for Visit * Reason Onset Date Comments Question 03/20/2019 Referral Request 03/20/2019 Cardiology-EP Encounter Details Date Type Department Care Team (Late st Contact Info) Description 03/20/[address] [phone] Huber Milligan MD 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 E ADMINISTRATOR E ADMINISTRATOR * Lissette Nick - 04/29/2019 2:48 PM CST There are no openings in [place]. E ADMINISTRATOR * Sharon Villa RN - 04/28/2019 1:42 PM CSTAddended by: SHARON VILLA on: 04/28/2019 01:42 PM Modules accepted: Orders E ADMINISTRATOR * Sharon Villa RN - 04/28/2019 1:41 PM CST Referral to EP placed. Please call patient and arrange appt on May 12 at 10:30 or later(late morning). Thanks! E ADMINISTRATOR * Huber Milligan MD - 04/28/2019 1:11 PM CST I called the patient's son and explained that since the new stroke is on the other side of the brain, we have to rule out a-fib. We will arrange for her to be seen by cardiology (EP) due to cryptogenic stroke. Mr. Hightower mentioned he's worried about the patient's cognition. I said we will see her on . Rosalba, please arrange for a follow-up visit for Mrs. Waite with me on Sunday, later in themorning (1030 or later). Also, please place a referral for EP. The patient lives closer to [place]. Thanks! E ADMINISTRATOR * Rosemary Hines - 03/20/2019 2:38 PM CST Patient's son Zack Hightower called and said that she went and saw primary doctor because they thought she had another small stroke. He is ordering a CT of head for 04/14/2019. She is also having [facility] carotid duplex done tomorrow 03/21/2019. They just wanted to let you know so you can compare the twoof them. [phone] E ADMINISTRATOR documented in this encounter Plan of Treatment Scheduled Referrals Name Type Priority Associated Diagnoses Orde r Schedule Ambulatory referral to Cardiology, Adult Referral Routine Cryptogenic stroke (CMS/HCC HHS/HCC) Ordered: 04/28/2019 documented as of this encounter Visit Diagnoses Diagnosis Cryptogenic stroke (CMS/HCC HHS/HCC)- Primary Unspecified cerebral artery occlusion with cerebral infarction documented in this encounter Care Teams Optical Glass Etcher Relationship Specialty Start Date End Date Jasson Cueva MD [address] [place] [phone] PCP - General FAMILY PRACTICE 11/03/18 Huber Milligan MD [address] [place] [phone] Consulting Physician Vascular Neurology 04/30/19 Norm Hopkins MD [address] [place] [address] Consulting Physician CLINICAL CARDIAC ELECTROPHYSIOLOGY 04/30/19 documented as of this encounter
--- OUTSIDE RECORDS SUMMARY | 2024-03-19 18:41 | XMS_ITS | Encounter Summary ---
Author Organization [facility] Address [address] [place] [address]. [place], [place] [id number] [place] [address] Care Team Providers Care Nursing Information Systems Coordinator Name Role Phone Jasson Cueva MD Primary Care Provider Reason for Visit * Reason Onset Date Comments Follow Up Call 11/14/2018 Encounter Details Date Type Department Care Team (Late st Contact Info) Description 11/14/2018 Telephone [facility] [place] [address] Aneta Fontaine RN Follow Up Call Social History Tobacco Use Types Packs/Day Years Used Date Smoking Tobacco: Every Day Cigarettes Smokeless Tobacco: Never Alcohol Use Standard Drinks/Week Comments Yes 0 (1 standard drink = 0.6 oz pur e alcohol) Comments No Sex and Gender Information Value Date Recorded Sex Assigned at Not on file Legal 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 documented in this encounter Plan of Treatment Not on file documented as of this encounter Visit Diagnoses Not on filedocumented in this encounter Care Teams Nursing Information Systems Coordinator Relationship Specialty Start Date End Date Jasson Cueva MD NPI: [id number] [place] [phone] PCP - General FAMILY PRACTICE 11/03/18 documented as of this encounter
--- OUTSIDE RECORDS SUMMARY | 2024-03-19 18:41 | XMS_ITS | Encounter Summary ---
Author Organization [facility] Address [address] [place] [address]. [place], [place] [phone] [place] [address] Care Team Providers Care Mud Tank Operator Name Role Phone Jasson Cueva MD Primary Care Provider Reason for Visit * Reason Onset Date Comments Surgery Follow Up 11/08/2018 Encounter Details Date Type Department Care Team (Late st Contact Info) Description 11/08/2018 Telephone [facility] [place] [address] Aneta Fontaine RN Surgery Follow Up Social History Tobacco Use Types Packs/Day Years Used Date Smoking Tobacco: Every Day Cigarettes Smokeless Tobacco: Never Alcohol Use Standard Drinks/Week Comments Yes 0 (1 standard drink = 0.6 oz pur e alcohol) Comments No Sex and Gender Information Value Date Recorded Sex Assigned at Not on file 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 Son is aware of needing medical clearance. He verbalizes understanding and denies any questions. documented in this encounter Plan of Treatment Not on file documented as of this encounter Visit Diagnoses Not on filedocumented in this encounter Care Teams Mud Tank Operator Relationship Specialty Start Date End Date Jasson Cueva MD [address] [place] [address] PCP - General FAMILY PRACTICE 11/03/18 documented as of this encounter
--- OUTSIDE RECORDS SUMMARY | 2024-03-19 18:41 | XMS_ITS | Encounter Summary ---
Author Organization [facility] Address [address] [place] [address]. [place], [place] [phone] [place] [address] Care Team Providers Care Inside Polisher Name Role Phone Jasson Cueva MD Primary Care Provider [phone] Reason for Referral * Imaging (Routine) - Closed Specialty Diagnoses / Procedures Referred By Contac t Referred To Contact RADIOLOGY Diagnoses Stroke ([facility]/HCC HHS/HCC) Procedures USV CAROTID DUPLEX FRANC USV CAROTID DUPLEX FRANC USV CAROTID DUPLEX FRANC Jasson Cueva MD [address] [place] [phone] Phone: tel: fax: Referral ID Status Reason Start Date Expiration Date Visits Re quested Visits Authorized [id number] Closed 03/20/2019 04/20/2020 1 1 ORT SKILLED MAINTENANCE SUPERVISOR Reason for Visit * Imaging (Routine) - Closed Specialty Diagnoses / Procedures Referred By Contac t Referred To Contact RADIOLOGY Diagnoses Stroke ([facility] HHS/[facility]) Procedures USV CAROTID DUPLEX FRANC USV CAROTID DUPLEX FRANC USV CAROTID DUPLEX FRANC Jsason Cueva MD [address] [place] [phone] Phone: tel: fax: Referral ID Status Reason Start Date Expiration Date Visits Re quested Visits Authorized [id number] Closed 03/20/2019 04/20/2020 1 1 Encounter Details Date Type Department Care Team (Latest Contact Info) Description 03/21/2019 11:00 AM AIRPORT SKILLED MAINTENANCE SUPERVISOR - 03/21/2019 11:59 PM AIRPORT SKILLED MAINTENANCE SUPERVISOR Hospital Encounter [facility] [address] [place] [address] Jasson Cueva MD [address] [place] [phone] Discharge Disposition: Home or Self Care (Routine Discharge) Social History Tobacco Use Types Packs/Day Years Used Date Smoking Tobacco: Every Day Cigarettes Smokeless Tobacco: Never Alcohol Use Standard Drinks/Week Comments Yes 0 (1 standard drink = 0.6 oz pur e alcohol) Comments No Sex and Gender Information Value Date Recorded Sex Assigned at Not on file Legal 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 AIRPORT SKILLED MAINTENANCE SUPERVISOR Gender Identity Not on file Sexual [...] 09/03/2019 atorvastatin 40 MG tabletIndication s:Ischemic stroke ([facility]) Take 1 tablet (40 mg [...] Procedure Name Priority Date/Time Associated Diagnosis Comments USV CAROTID DUPLEX FRANC Routine 03/21/2019 12:10 PM AIRPORT SKILLED MAINTENANCE SUPERVISOR Stroke ([facility]) documented in this encounter Results * USV CAROTID DUPLEX FRANC (03/21/2019 12:10 PM AIRPORT SKILLED MAINTENANCE SUPERVISOR) Anatomical Region Laterality Modality Neck Ultrasound 03/23/2019 8:05 AM AIRPORT SKILLED MAINTENANCE SUPERVISOR Impressions 03/23/2019 8:07 AM AIRPORT SKILLED MAINTENANCE SUPERVISOR IMPRESSION: Right internal carotid artery: <50% Stenosis Left internal carotid artery: <50% Stenosis Vertebral arteries: Antegrade flow with normal waveforms bilaterally. Society of Radiologists in Ultrasound (SRU) consensus statement (Radiology 2003; 229:340-346. DOI 10.1148/radiol.0113708899) was used to estimate internal carotid artery stenosis. This conforms with the NASCENT criteria. Interpreted By: Javan Velazquez MD, 03/23/2019 8:05 AM Narrative 03/23/2019 8:07 AM AIRPORT SKILLED MAINTENANCE SUPERVISOR ULTRASOUND OF THE CAROTID ARTERIES Clinical information: Right-sided facial weakness Comparison: None FINDINGS: Grayscale and color Doppler ultrasound examination of the carotid and vertebral artery systems bilaterally. Maximum peak systolic velocity (PSV) / end diastolic velocity (EDV) measurements were obtained. Right Carotid System Right Common Carotid Artery (RCCA): 51.1 / 18.1 cm/s No significant plaquing Right Internal Carotid Artery (LES): 62.2 / 22.5 cm/s No significant plaquing ICA/CCA Ratio: 1.2 Right External Carotid Artery (RECA): 49.5 cm/s No significant plaquing Right Vertebral Artery (RVA): ??Antegrade flow with normal waveform. Left Carotid System Left Common Carotid Artery (LCCA): 57 / 20.4 cm/s No significant plaquing Left Internal Carotid Artery (LICA): 97 / 30.2 cm/s No significant plaquing ICA/CCA Ratio: 1.7 Left External Carotid Artery (LECA): 37.8 cm/s No significant plaquing Left Vertebral Artery (LVA): ??Antegrade flow with normal waveform. Other findings: None Procedure Note Javan Velazquez MD - 03/23/2019 ULTRASOUND OF THE CAROTID ARTERIES Clinical information: Right-sided facial weakness Comparison: None FINDINGS: Grayscale and color Doppler ultrasound examination of the carotid and vertebral artery systems bilaterally. Maximum peak systolic velocity(PSV) / end diastolic velocity (EDV) measurements were obtained. Right Carotid System Right Common Carotid Artery (RCCA): 51.1 / 18.1 cm/s No significant plaquing Right Internal Carotid Artery (LES): 62.2 / 22.5 cm/s No significant plaquing ICA/CCA Ratio: 1.2 Right External Carotid Artery (RECA): 49.5 cm/s No significant plaquing Right Vertebral Artery (RVA): Antegrade flow with normal waveform. Left Carotid System Left Common Carotid Artery (LCCA): 57 / 20.4 cm/s No significantplaquing Left Internal Carotid Artery (LICA): 97 / 30.2 cm/s No significantplaquing ICA/CCA Ratio: 1.7 Left External Carotid Artery (LECA): 37.8 cm/s No significant plaquing Left Vertebral Artery (LVA): Antegrade flow with normal waveform. Other findings: None IMPRESSION: Right internal carotid artery: <50% Stenosis Left internal carotid artery: <50% Stenosis Vertebral arteries: Antegrade flow with normal waveforms bilaterally. Society of Radiologists in Ultrasound (SRU) consensus statement(Radiology 2003; 229:340-346. DOI 10.1148/radiol.[id number]) was used to estimate internal carotid artery stenosis. This conforms with the NASCENTcriteria. Interpreted By: Javan Velazquez MD, 03/23/2019 8:05 AM us Jasson Cueva MD VAS Final Resul t documented in this encounter Visit Diagnoses Diagnosis Stroke ([facility]) Unspecified cerebral artery occlusion with cerebral infarction documented in this encounter Care Teams Inside Polisher Relationship Specialty Start Date End Date Jasson Cueva MD [address] [place] [phone] PCP - General FAMILY PRACTICE 11/03/18 documented as of this encounter
--- OUTSIDE RECORDS SUMMARY | 2024-03-19 18:41 | XMS_ITS | Encounter Summary ---
Author Organization [facility] Address [address] [place] [address]. [place], [place] [id number] [place] [id number] Care Team Providers Care Dairy Inspector Name Role Phone Jasson Cueva MD Primary Care Provider Reason for Referral * Imaging (Routine) - Closed Specialty Diagnoses / Procedures Referred By Jayce coronado Referred To Contact RADIOLOGY Diagnoses Ischemic stroke ([facility]) Procedures CTA HEAD Huber Milligan MD Phone: tel: fax: Referral ID Status Reason Start Date Expiration Date Visits Re quested Visits Authorized [id number] Closed 12/20/2018 01/21/2020 1 1 Reason for Visit * Reason Comments New Patient Neurologic Problem Encounter Details Date Type Department Care Team (Latest Contact Info) Description 12/20/2018 10:00 AM CDT Office Visit [facility] [address] [address] Huber Milligan MD 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 Gender Identity Not on file Sexual Orientation Not on file documented as of this encounter Last Filed Vital Signs Vital Sign Reading Time Taken Comments Blood Pressure 130/84 12/20/2018 10:23 AM CDT Pulse 81 12/20/2018 10:23 AM CDT Temperature - - Respiratory Rate 20 12/20/2018 10:2 3 AM CDT Oxygen Saturation 98% 12/20/2018 10: 23 AM CDT Inhaled Oxygen Concentration - - Weight 60.2 kg (132 lb 12.8 oz) 019 10:23 AM CDT Height 170.2 cm (5' 7 ) 12/20/2018 10:2 3 AM CDT Body Mass Index 20.8 12/20/2018 10:23 AM CDT documented in this encounter Functional [...] this encounter Patient Instructions * Patient Instructions* Huber Milligan MD - 12/20/2018 10:00 AM CDT Images from the original note were not included. You were seen today because you had a stroke. This stroke is small, and it's in the left side of your brain in a part called the THALAMUS. I think your numbness will get better. You had a picture of the vessels in your brain called a MRA. The radiologist thought you might havean aneurysm. I am not sure this is the case. Even if you do, this is tiny. We will do the followin. You will take a blood thinning medicine called PLAVIX (clopidogrel) for 21 days 2. You will take a choleesterol medication called ATORVASTATIN. This type of drug is usually highlyeffective to lower LDL cholesterol ( bad cholesterol ) and is usually very well tolerated. However,statin drugs may cause skeletal muscle injury in rare cases. Be alert for pronounced persistent diffuse muscle pain and discontinue the drug immediately should such symptoms develop. 3. I am going to prescribe gabapentin 300 mg. This medication will help the tingling and pain you have. You will start with one by mouth at bedtime. After a week, take one in the morning and one at night. After another week, you can take two in the morning, and two at night. At this point, if your symptoms are better, stop at two twice a day. However, if you are not relieved, then take two three times a day (6 total). Potential side effects include sleepiness, nausea, dizziness, and weight gain. This medicine will not interact with other medications. 4. We will schedule a CT angiogram in [place] in March 5. You memory was a little bit off. We will check this the next time I see you in June, in [place]. Patient Education Patient Education Stroke The Basics Written by the doctors and editors at [facility] What is a stroke???--??Stroke is the term doctors use when a part of the brain is damaged because of a problem with blood flow. Strokes can happen when: ?? An artery going to the brain gets clogged or closes off, and part of the brain goes without blood for too long ?? An artery breaks open and starts bleeding into or around the brain How do strokes affect people???--??The effects of a stroke depend on a lot of things, including: ?? Which part and how much of the brain is affected ?? How quickly the stroke is treated Some people who have a stroke have no lasting effects. Others lose important brain functions. For example, some people become partly paralyzed or unable to speak. Stroke is one of the leading causes of and disability in the world. How can you tell if someone is having a stroke???--??There is an easy way to remember the signs of a stroke. Just think of the word FAST (figure 1). Each letter in the word stands for one of the things you should watch for: ?? Face - Does the person's face look uneven or droop on one side? ?? Arm - Does the person have weakness or numbness in one or both arms? Does one arm drift down if the person tries to hold both arms out? ?? Speech - Is the person having trouble speaking? Does his or her speech sound strange? ?? Time - If you notice any of these stroke signs, call for an ambulance (in the [place] and [place], dial 9-1-1). You need to act FAST. The sooner treatment begins, the better the chances of recovery. How are strokes treated???--??The right treatment depends on what kind of stroke you are having. You need to get to the hospital very quickly to figure this out. People whose strokes are caused by clogged arteries can: ?? Get treatments that help reopen clogged arteries. These treatments can help you recover from thestroke. ?? Get medicines that prevent new blood clots. These medicines also help prevent future strokes. People whose strokes are caused by bleeding can: ?? Have treatments that might reduce the damage caused by bleeding in or around the brain ?? Stop taking medicines that increase bleeding, or take a lower dose ?? Have surgery to repair the artery or stop the bleeding (this is not always possible to do) Can strokes be prevented???--??Many strokes can be prevented, though not all. You can greatly loweryour chance of having a stroke by: ?? Taking your medicines exactly as directed. Medicines that are especially important in preventingstrokes include: ? Blood pressure medicines ? Medicines called statins, which lower cholesterol ? Medicines to prevent blood clots, such aspirin or blood thinners ? Medicines that help to keep your blood sugar as close to normal as possible (if you have diabetes) ?? Making lifestyle changes: ? Stop smoking, if you smoke ? Get regular exercise (if your doctor says it's safe) for at least 30 minutes a day on most days of the week ? Lose weight, if you are overweight ? Eat a diet rich in fruits, vegetables, and low-fat dairy products, and low in meats, sweets, and refined grains (such as white bread or white rice) ? Eat less salt (sodium) ? Limit the amount of alcohol you drink -If you are a woman, do not drink more than 1 drink a day -If you are a man, do not drink more than 2 drinks a day Another way to prevent strokes is to have surgery to reopen clogged arteries in the neck. This surgery is appropriate for only a small group of people. What is a TIA ???--??A TIA is like a stroke, but it does not damage the brain. TIAs happen when anartery in the brain gets clogged or closes off and then reopens on its own. This can happen if a blood clot forms and then moves away or dissolves. TIA stands for transient ischemic attack. Even though TIAs do not cause lasting symptoms, they are serious. If you have a TIA, you are at high risk of having a stroke. It's important that you see a doctor and take steps to prevent that from happening. Do not ignore the symptoms of a stroke even if they go away! All topics are updated as new evidence becomes available and our peer review process is complete. This topic retrieved from [employer] on: August 07, 2018. Topic 27098 Version 10.0 Release: 27.2.3 - C27.145 ?2019??[employer]. and/or its affiliates.??All rights reserved. figure 1: Signs of stroke The letters in the word fast help you remember the signs of stroke. If a person shows any of these signs, call an ambulance right away. In the [place] and [place], dial ??9-1-1. ?? Graphic 64687 Version 3.0 Consumer Information Use and Disclaimer This information [...] or not to accept your health care provider's advice, instructions or recommendations. Only your health care provider has the knowledge and training to provide advice that is right for you.The use of [employer] content is governed by the [employer] Terms of Use. ??2019 [employer]: [employer]. All rights reserved. Copyright ?2019??[employer] and/or its affiliates.??All rights reserved. Patient Education Patient Education Atorvastatin (a TORE va sta tin) Brand Names: Lipitor Brand Names: [place] Lipitor What is this drug used for? ?? It is used to lower bad cholesterol and raise good cholesterol (HDL). ?? It is used to lower triglycerides. ?? It is used in some people to lower the chance of heart attack, stroke, and certain heart procedures. ?? It is used to slow the progress of heart disease. ?? It may be given to you for other reasons. Talk with the doctor. What do I need to tell my doctor BEFORE I take this drug? ?? If you have an allergy to atorvastatin or any other part of this drug. ?? If you are allergic to any drugs like this one, any other drugs, foods, or other substances. Tell your doctor about the allergy and what signs you had, like rash; hives; itching; shortness of breath; wheezing; cough; swelling of face, lips, tongue, or throat; or any other signs. ?? If you are or may be . Do not take this drug if you are . ?? If you are breast-feeding. Do not breast-feed while you take this drug. ?? If you have any of these health problems: Active liver disease or a rise in liver enzymes. ?? If you are taking any of these drugs: Cyclosporine, gemfibrozil, glecaprevir plus pibrentasvir, or tipranavir plus ritonavir. This is not a list of all drugs or health problems that interact with this drug. Tell your doctor and pharmacist about all of your drugs (prescription or OTC, natural products, vitamins) and health problems. You must check to make sure that it is safe for you to take this drug with all of your drugs and health problems. Do not start, stop, or change the dose of any drug withoutchecking with your doctor. What are some things I need to know or do while I take this drug? ?? Tell all of your health care providers that you take this drug. This includes your doctors, nurses, pharmacists, and dentists. ?? If you have high blood sugar (diabetes), you will need to watch your blood sugar closely. ?? Have blood work checked as you have been told by the doctor. Talk with the doctor. ?? Do not take more than what your doctor told you to take. Taking more than you are told may raiseyour chance of very bad side effects. ?? Follow the diet and workout plan that your doctor told you about. ?? If you drink grapefruit juice or eat grapefruit often, talk with your doctor. ?? Avoid or limit drinking alcohol to less than 3 drinks a day. Drinking too much alcohol may raiseyour chance of liver disease. ?? If you are 65 or older, use this drug with care. You could have more side effects. ?? This drug may cause harm to the unborn baby if you take it while you are . If you are or you get while taking this drug, call your doctor right away. ?? Use control that you can trust to prevent while taking this drug. What are some side effects that I need to call my doctor about right away? WARNING/CAUTION: Even though it may be rare, some people may have very bad and sometimes deadly side effects when taking a drug. Tell your doctor or get medical help right away if you have any of thefollowing signs or symptoms that may be related to a very bad side effect: ?? Signs of an allergic reaction, like rash; hives; itching; red, swollen, blistered, or peeling skin with or without fever; wheezing; tightness in the chest or throat; trouble breathing, swallowing,or talking; unusual hoarseness; or swelling of the mouth, face, lips, tongue, or throat. ?? Signs of a urinary tract infection (UTI) like blood in the urine, burning or pain when passing urine, feeling the need to pass urine often or right away, fever, lower stomach pain, or pelvic pain. ?? Weakness on 1 side of the body, trouble speaking or thinking, change in balance, drooping on oneside of the face, or blurred eyesight. ?? Not able to pass urine or change in how much urine is passed. ?? Feeling very tired or weak. ?? Feeling confused. ?? Memory problems or loss. ?? This drug may cause muscle pain, tenderness, or weakness. Sometimes, a very bad muscle problem may happen that may lead to kidney problems. Rarely, deaths have happened in people who get these problems when taking drugs like this one. Call your doctor right away if you have muscle pain, tenderness, or weakness that is not normal (with or without fever or feeling out of sorts). Call your doctorright away if you have muscle signs that last after your doctor has told you to stop taking this drug. ?? Very bad and sometimes deadly liver problems have happened with this drug. Call your doctor right away if you have signs of liver problems like dark urine, feeling tired, not hungry, upset stomachor stomach pain, light-colored stools, throwing up, or yellow skin or eyes. What are some other side effects of this drug? All drugs may cause side effects. However, many people have no side effects or only have minor sideeffects. Call your doctor or get medical help if any of these side effects or any other side effects bother you or do not go away: ?? Diarrhea. ?? Joint pain. ?? Upset stomach. ?? Nose or throat irritation. ?? Trouble sleeping. These are not all of the side effects that may occur. If you have questions about side effects, call your doctor. Call your doctor for medical advice about side effects. You may report side effects to your national health agency. How is this drug best taken? Use this drug as ordered by your doctor. Read all information given to you. Follow all instructionsclosely. ?? Take this drug at the same time of day. ?? Take with or without food. ?? Do not split or break tablet. ?? Keep taking this drug as you have been told by your doctor or other health care provider, even if you feel well. What do I do if I miss a dose? ?? Take a missed dose as soon as you think about it and go back to your normal time. ?? If it has been 12 hours or more since the missed dose, skip the missed dose and go back to your normal time. ?? Do not take 2 doses at the same time or extra doses. How do I store and/or throw out this drug? ?? Store at room temperature. ?? Store in a dry place. Do not store in a bathroom. ?? Keep all drugs in a safe place. Keep all drugs out of the reach of children and pets. ?? Throw away unused or drugs. Do not flush down a toilet or pour down a drain unless you are told to do so. Check with your pharmacist if you have questions about the best way to throw out drugs. There may be drug take-back programs in your area. General drug facts ?? If your symptoms or health problems do not get better or if they become worse, call your doctor. ?? Do not share your drugs with others and do not take anyone else's drugs. ?? Keep a list of all your drugs (prescription, natural products, vitamins, OTC) with you. Give this list to your doctor. ?? Talk with the doctor before starting any new drug, including prescription or OTC, natural products, or vitamins. ?? Some drugs may have another patient information leaflet. If you have any questions about this drug, please talk with your doctor, nurse, pharmacist, or other health care provider. ?? If you think there has been an overdose, call your poison control center or get medical care right away. Be ready to tell or show what was taken, how much, and when it happened. Consumer Information Use and Disclaimer This information should not be used to decide whether or not to take this medicine or any other medicine. Only the healthcare provider has the knowledge and training to decide which medicines are right for a specific patient. This information does not endorse any medicine as safe, effective, or approved for treating any patient or health condition. This is only a brief summary of general information about this medicine. It does NOT include all information about the possible uses, directions, warnings, precautions, interactions, adverse effects, or risks that may apply to this medicine. This information is not specific medical advice and does not replace information you receive from the healthcare provider. You must talk with the healthcare provider for complete information about the risksand benefits of using this medicine. Last Reviewed Date 2018-08-27 Copyright ?? 2019 [employer] and its affiliates and/or licensors. All rights reserved. Patient Education Patient Education Clopidogrel (kloh PID oh grel) Brand Names: [place] Plavix Brand Names: [place] Plavix Warning ?? This drug may not work as well in some people. A test can be done to see if you are one of thesepeople. Talk with your doctor. What is this drug used for? ?? It is used to lower the chance of heart attack or stroke. ?? It may be given to you for other reasons. Talk with the doctor. What do I need to tell my doctor BEFORE I take this drug? ?? If you have an allergy to clopidogrel or any other part of this drug. ?? If you are allergic to any drugs like this one, any other drugs, foods, or other substances. Tell your doctor about the allergy and what signs you had, like rash; hives; itching; shortness of breath; wheezing; cough; swelling of face, lips, tongue, or throat; or any other signs. ?? If you have any of these health problems: Active bleeding or bleeding problems like bleeding in the brain or bleeding ulcers. ?? If you are taking any of these drugs: Esomeprazole, omeprazole, or repaglinide. This is not a list of all drugs or health problems that interact with this drug. Tell your doctor and pharmacist about all of your drugs (prescription or OTC, natural products, vitamins) and health problems. You must check to make sure that it is safe for you to take this drug with all of your drugs and health problems. Do not start, stop, or change the dose of any drug withoutchecking with your doctor. What are some things I need to know or do while I take this drug? ?? Tell all of your health care providers that you take this drug. This includes your doctors, nurses, pharmacists, and dentists. This drug may need to be stopped before certain types of surgery as your doctor has told you. If this drug is stopped, your doctor will tell you when to start taking this drug again after your surgery or procedure. ?? Do not stop taking this drug without calling the doctor who ordered it for you. ?? If you fall or hurt yourself, or if you hit your head, call your doctor right away. Talk with your doctor even if you feel fine. ?? You may bleed more easily. Be careful and avoid injury. Use a soft toothbrush and an electric razor. ?? Very bad and sometimes deadly bleeding problems have happened with this drug. Talk with the doctor. ?? Talk with your doctor before using products that have aspirin, blood thinners, garlic, ginseng, ginkgo, ibuprofen or like products, pain drugs, or vitamin E. ?? Tell your doctor if you are , plan on getting , or are breast-feeding. You will need to talk about the benefits and risks to you and the baby. What are some side effects that I need to call my doctor about right away? WARNING/CAUTION: Even though it may be rare, some people may have very bad and sometimes deadly side effects when taking a drug. Tell your doctor or get medical help right away if you have any of thefollowing signs or symptoms that may be related to a very bad side effect: ?? Signs of an allergic reaction, like rash; hives; itching; red, swollen, blistered, or peeling skin with or without fever; wheezing; tightness in the chest or throat; trouble breathing, swallowing,or talking; unusual hoarseness; or swelling of the mouth, face, lips, tongue, or throat. ?? Signs of bleeding like throwing up blood or throw up that looks like coffee grounds; coughing upblood; blood in the urine; black, red, or tarry stools; bleeding from the gums; vaginal bleeding that is not normal; bruises without a reason or that get bigger; or any bleeding that is very bad or that you cannot stop. ?? Signs of low blood sugar like dizziness, headache, feeling sleepy, feeling weak, shaking, a fastheartbeat, confusion, hunger, or sweating. ?? A severe blood problem called thrombotic thrombocytopenic purpura (TTP) has happened with this drug. Sometimes, this has been deadly. Call your doctor right away if you feel confused, very tired, or very weak, or if you have weakness on 1 side of the body, trouble speaking or thinking, change inbalance, drooping on one side of the face, or change in eyesight. Call your doctor right away if you have a fast heartbeat; fever; headache; pale skin; less urine passed or urine that is pink or has blood in it; purple spots on the skin or mouth; seizures; severe diarrhea, stomach pain, upset stomach, or throwing up; shortness of breath; or yellow skin or eyes. What are some other side effects of this drug? All drugs may cause side effects. However, many people have no side effects or only have minor sideeffects. Call your doctor or get medical help if you have any side effects that bother you or do not go away. These are not all of the side effects that may occur. If you have questions about side effects, call your doctor. Call your doctor for medical advice about side effects. You may report side effects to your national health agency. How is this drug best taken? Use this drug as ordered by your doctor. Read all information given to you. Follow all instructionsclosely. ?? Take with or without food. ?? Keep taking this drug as you have been told by your doctor or other health care provider, even if you feel well. What do I do if I miss a dose? ?? Take a missed dose as soon as you think about it. ?? If it is close to the time for your next dose, skip the missed dose and go back to your normal time. ?? Do not take 2 doses at the same time or extra doses unless told to do so by your doctor. How do I store and/or throw out this drug? ?? Store at room temperature. ?? Store in a dry place. Do not store in a bathroom. ?? Keep all drugs in a safe place. Keep all drugs out of the reach of children and pets. ?? Throw away unused or drugs. Do not flush down a toilet or pour down a drain unless you are told to do so. Check with your pharmacist if you have questions about the best way to throw out drugs. There may be drug take-back programs in your area. General drug facts ?? If your symptoms or health problems do not get better or if they become worse, call your doctor. ?? Do not share your drugs with others and do not take anyone else's drugs. ?? Keep a list of all your drugs (prescription, natural products, vitamins, OTC) with you. Give this list to your doctor. ?? Talk with the doctor before starting any new drug, including prescription or OTC, natural products, or vitamins. ?? Some drugs may have another patient information leaflet. If you have any questions about this drug, please talk with your doctor, nurse, pharmacist, or other health care provider. ?? If you think there has been an overdose, call your poison control center or get medical care right away. Be ready to tell or show what was taken, how much, and when it happened. Consumer Information Use and Disclaimer This information should not be used to decide whether or not to take this medicine or any other medicine. Only the healthcare provider has the knowledge and training to decide which medicines are right for a specific patient. This information does not endorse any medicine as safe, effective, or approved for treating any patient or health condition. This is only a brief summary of general information about this medicine. It does NOT include all information about the possible uses, directions, warnings, precautions, interactions, adverse effects, or risks that may apply to this medicine. This information is not specific medical advice and does not replace information you receive from the healthcare provider. You must talk with the healthcare provider for complete information about the risksand benefits of using this medicine. Last Reviewed Date 2018-09-18 Copyright ?? 2019 [employer] Clinical Drug Information, [employer]. and its affiliates and/or licensors. All rights reserved. Patient Education Patient Education Gabapentin (GA ba pen tin) Brand Names: [place] Gralise; Gralise Starter; Neurontin Brand Names: [place] Neurontin What is this drug used for? ?? It is used to treat seizures. ?? It is used to treat painful nerve diseases. ?? It may be given to you for other reasons. Talk with the doctor. What do I need to tell my doctor BEFORE I take this drug? ?? If you have an allergy to gabapentin or any other part of this drug. ?? If you are allergic to any drugs like this one, any other drugs, foods, or other substances. Tell your doctor about the allergy and what signs you had, like rash; hives; itching; shortness of breath; wheezing; cough; swelling of face, lips, tongue, or throat; or any other signs. ?? If you have kidney disease or are on dialysis. This is not a list of all drugs or health problems that interact with this drug. Tell your doctor and pharmacist about all of your drugs (prescription or OTC, natural products, vitamins) and health problems. You must check to make sure that it is safe for you to take this drug with all of your drugs and health problems. Do not start, stop, or change the dose of any drug withoutchecking with your doctor. What are some things I need to know or do while I take this drug? ?? Tell all of your health care providers that you take this drug. This includes your doctors, nurses, pharmacists, and dentists. ?? Avoid driving and doing other tasks or actions that call for you to be alert until you see how this drug affects you. ?? This drug may affect certain lab tests. Tell all of your health care providers and lab workers that you take this drug. ?? Have blood work checked as you have been told by the doctor. Talk with the doctor. ?? Talk with your doctor before you drink alcohol or use other drugs and natural products that slowyour actions. ?? This drug is not the same as gabapentin enacarbil (Horizant???). Do not use in its place. Talk with the doctor. ?? A very bad and sometimes deadly reaction has happened with this drug. Most of the time, this reaction has signs like fever, rash, or swollen glands with problems in body organs like the liver, kidney, blood, heart, muscles and joints, or lungs. Talk with the doctor. ?? Do not stop taking this drug all of a sudden without calling your doctor. You may have a greaterrisk of side effects. If you need to stop this drug, you will want to slowly stop it as ordered by your doctor. ?? If you are 65 or older, use this drug with care. You could have more side effects. ?? Use with care in children. Talk with the doctor. ?? Tell your doctor if you are or plan on getting . You will need to talk about the benefits and risks of using this drug while you are . ?? Tell your doctor if you are breast-feeding. You will need to talk about any risks to your baby. What are some side effects that I need to call my doctor about right away? WARNING/CAUTION: Even though it may be rare, some people may have very bad and sometimes deadly side effects when taking a drug. Tell your doctor or get medical help right away if you have any of thefollowing signs or symptoms that may be related to a very bad side effect: ?? Signs of an allergic reaction, like rash; hives; itching; red, swollen, blistered, or peeling skin with or without fever; wheezing; tightness in the chest or throat; trouble breathing, swallowing,or talking; unusual hoarseness; or swelling of the mouth, face, lips, tongue, or throat. ?? Signs of liver problems like dark urine, feeling tired, not hungry, upset stomach or stomach pain, light-colored stools, throwing up, or yellow skin or eyes. ?? Signs of kidney problems like unable to pass urine, change in how much urine is passed, blood inthe urine, or a big weight gain. ?? Trouble controlling body movements, twitching, change in balance, trouble swallowing or speaking. ?? Memory problems or loss. ?? Change in eyesight. ?? Feeling confused. ?? Shakiness. ?? Shortness of breath, a big weight gain, or swelling in the arms or legs. ?? Feeling very tired or weak. ?? Not able to control eye movements. ?? If seizures are worse or not the same after starting this drug. ?? Any unexplained bruising or bleeding. ?? Swollen gland. ?? Fever or chills. ?? Sore throat. ?? Muscle pain or weakness. ?? Not able to focus. ?? Very bad dizziness or passing out. ?? Patients who take this drug may be at a greater risk of having thoughts or actions of suicide. The risk may be greater in people who have had these thoughts or actions in the past. Call the doctorright away if signs like low mood (depression), nervousness, restlessness, grouchiness, panic attacks, or changes in mood or actions are new or worse. Call the doctor right away if any thoughts or actions of suicide occur. What are some other side effects of this drug? All drugs may cause side effects. However, many people have no side effects or only have minor sideeffects. Call your doctor or get medical help if any of these side effects or any other side effects bother you or do not go away: ?? Dizziness. ?? Feeling sleepy. ?? Upset stomach or throwing up. ?? Diarrhea. ?? Dry mouth. ?? Feeling tired or weak. These are not all of the side effects that may occur. If you have questions about side effects, call your doctor. Call your doctor for medical advice about side effects. You may report side effects to your national health agency. How is this drug best taken? Use this drug as ordered by your doctor. Read all information given to you. Follow all instructionsclosely. All products: ?? Keep taking this drug as you have been told by your doctor or other health care provider, even if you feel well. ?? To gain the most benefit, do not miss doses. ?? If you are taking an antacid that has aluminum or magnesium in it, take this drug at least 2 hours after taking the antacid. Gralise: ?? Take with the evening meal. ?? Swallow whole. Do not chew, break, or crush. All other products: ?? Take with or without food. Take with food if it causes an upset stomach. Capsules: ?? Swallow whole with a full glass of water. Tablets: ?? You may break the tablet in half. Do not chew or crush. ?? If you break the tablet in half, use the other half of the tablet for the next dose, as told by the doctor. Throw away half-tablets not used within 28 days. Liquid (solution): ?? Measure liquid doses carefully. Use the measuring device that comes with this drug. If there is none, ask the pharmacist for a device to measure this drug. What do I do if I miss a dose? ?? Take a missed dose as soon as you think about it. ?? If it is close to the time for your next dose, skip the missed dose and go back to your normal time. ?? Do not take 2 doses at the same time or extra doses. How do I store and/or throw out this drug? Liquid (solution): ?? Store in a refrigerator. Do not freeze. All other products: ?? Store at room temperature. ?? Store in a dry place. Do not store in a bathroom. All dose forms: ?? Keep all drugs in a safe place. Keep all drugs out of the reach of children and pets. ?? Throw away unused or drugs. Do not flush down a toilet or pour down a drain unless you are told to do so. Check with your pharmacist if you have questions about the best way to throw out drugs. There may be drug take-back programs in your area. General drug facts ?? If your symptoms or health problems do not get better or if they become worse, call your doctor. ?? Do not share your drugs with others and do not take anyone else's drugs. ?? Keep a list of all your drugs (prescription, natural products, vitamins, OTC) with you. Give this list to your doctor. ?? Talk with the doctor before starting any new drug, including prescription or OTC, natural products, or vitamins. ?? Some drugs may have another patient information leaflet. If you have any questions about this drug, please talk with your doctor, nurse, pharmacist, or other health care provider. ?? If you think there has been an overdose, call your poison control center or get medical care right away. Be ready to tell or show what was taken, how much, and when it happened. Consumer Information Use and Disclaimer This information should not be used to decide whether or not to take this medicine or any other medicine. Only the healthcare provider has the knowledge and training to decide which medicines are right for a specific patient. This information does not endorse any medicine as safe, effective, or approved for treating any patient or health condition. This is only a brief summary of general information about this medicine. It does NOT include all information about the possible uses, directions, warnings, precautions, interactions, adverse effects, or risks that may apply to this medicine. This information is not specific medical advice and does not replace information you receive from the healthcare provider. You must talk with the healthcare provider for complete information about the risksand benefits of using this medicine. Last Reviewed Date 2017-06-22 Copyright ?? 2019 [employer] Clinical Drug Information, [employer]. and its affiliates and/or licensors. All rights reserved. documented in this encounter Progress Notes * Huber Milligan MD - 12/20/2018 10:00 AM CDT Images from the original note were not included. [facility] Neurology Office OFFICE VISIT NOTE CC: Rt sided tingling, discomfort HPI Trisha Waite is a friendly 68-year-old woman with right-sided tingling/discomfort. Her issues started about a month ago, she fell and suffered a right shoulder injury. ON Sunday, she went for therapy, and reported that her right arm and right side of the thorax all felt numb. She can identify no precipitating or alleviating factors. Around this time she developed pain of the right arm that was new. The pain is hard for her to describe, but when I asked if it was burning pain she said yes. It is worst around the right triceps. Pain is constant. At times it is significant, and keeps her from sleeping. She has been on Percocet recently, which did help the pain. Past Medical History: Diagnosis Date ??? Depression ??? Displaced fracture of proximal end of right humerus 11/06/2018 ??? Hypertension Past Surgical History: Procedure Laterality Date ??? JOINT REPLACEMENT ??? SHOULDER SURGERY ??? TOTAL HIP ARTHROPLASTY bilateral Current Outpatient Medications: ??? amlodipine 10 MG tablet, , Disp: , Rfl: 1 ??? aspirin 325 MG tablet, Take 325 mg by mouth daily., Disp: , Rfl: ??? atorvastatin 40 MG tablet, Take 1 tablet (40 mg total) by mouth nightly at bedtime., Disp: 30 tablet, Rfl: 11 ??? clopidogrel (PLAVIX) 75 MG tablet, Take 1 tablet (75 mg total) by mouth daily for 21 days., Disp: 21 tablet, Rfl: 0 ??? gabapentin 300 MG capsule, Take one at bedtime. Increase as directed to two by mouth three times a day, if needed., Disp: 180 capsule, Rfl: 3 ??? hydrocodone-acetaminophen 5-325 MG tablet, Take 1-2 tablets by mouth every 6 (six) hours as needed for Pain., Disp: 40 tablet, Rfl: 0 ??? metoprolol succinate ER 50 MG 24 hr tablet, , Disp: , Rfl: 2 ??? hydrocodone-acetaminophen (NORCO) 7.5-325 MG tablet, Take 1 tablet by mouth every 6 (six) hoursas needed for Pain., Disp: 10 tablet, Rfl: 0 ??? oxyCODONE-acetaminophen 5-325 MG tablet, Take 1 tablet by mouth every 6 (six) hours as needed for Pain., Disp: 40 tablet, Rfl: 0 No Known Allergies [facility] Per patient both parents of old age, neither had an chronic medical conditions Social History Tobacco Use ??? Smoking status: Current Every Day Smoker Packs/day: 1.00 Types: Cigarettes ??? Smokeless tobacco: Never Used Substance Use Topics ??? Alcohol use: Yes Review of Systems Constitutional: Negative for fever. HENT: Negative for nosebleeds. Eyes: Negative for blurred vision. Respiratory: Negative for hemoptysis. Gastrointestinal: Negative for blood in stool. Genitourinary: Negative for hematuria. Musculoskeletal: Positive for joint pain. Skin: Positive for itching. She attributes this to allergies Endo/Heme/Allergies: Bruises/bleeds easily. Psychiatric/Behavioral: Positive for depression. All other systems reviewed and are negative. Filed Vitals: 12/20/18 1023 BP: 130/84 Pulse: 81 Resp: 20 SpO2: 98% Weight: 60.2 kg (132 lb 12.8 oz) Height: 5' 7 (1.702 m) Exam Gen: No acute distress Head: Normocephalic atraumatic Eyes: Funduscopic exam shows no papilledema Heart: Regular rate Extremities: Radial pulses 2+ and symmetric NEUROLOGICAL EXAM Mental Status: Attention, orientation, language, fund of knowledge all normal, no aphasia. Memory and concentration impaired, delayed recall 0/3. Cranial Nerves: II - Visual field testing =>normal III - No ptosis, EOM full IV - No superior oblique palsy V - Facial sensation intact and symmetric - No lateral rectus palsy VII - Face symmetric VIII - Hearing grossly normal IX - Pharyngeal sensation normal XI - Sternocleidomastoid 5/5 bilaterally XII - No tongue deviation Motor: Tone is normal throughout. There is a right pronator drift. Strength testing in the right arm seems to be limited due to decreased ROM right arm. 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 Strength 5/5in both lower limbs. Coordination: Mhdhda-qk-jutf testing shows no ataxia or dysmetria, but the right arm is limited dueto pain. Sensory: No extinction to double simultaneous stimulation of the arms Reflexes: brachioradialis reflex (C-5 to C-6) right and left 2/4 Gait: Steady IMAGING MRI 12/09/2018 shows acute left thalamic stroke MRA on the same day shows Possible small aneurysm versus vascular tortuosity at the left ICA/PCOM junction. IMPRESSION/MEDICAL DECISION MAKING 1. Recent ischemic stroke. This looks to be due to small vessel (lacunar) ischemia 2. Neuropathic pain, felt to be due to #1 3. Abnormal MRA, possible aneuryms 4. Memory dysfunction noted on exam. Hard to say if this is from dementia/MCI in the setting of a recent stroke. PLAN ?? Use aspirin 81 mg orally every day and clopidogrel 75 mg orally every day for secondary stroke prevention x 21 days, then stop the aspirin and just use Plavix (this is from the CHANCE trial) ?? Statin ?? I doubt the MRA finding represents real cause for concern, but we will check CTA to make sure ?? Try gabapentin for her neuropathic pain ?? I will evaluate her memory more at a future date F/u in June in [place] documented in this encounter Plan of Treatment Scheduled Orders Name Type Priority Associated Diagnoses Orde r Schedule CTA HEAD CT Routine Ischemic stroke ([facility]) Expected: 04/11/2019, Expires: 12/21/2019 documented as of this encounter Visit Diagnoses Diagnosis Ischemic stroke ([facility]/HCC)- Primary Neuropathic pain Neuralgia, neuritis, and radiculitis, unspecified Memory dysfunction Memory loss Abnormal MRA, head Nonspecific (abnormal) findings on radiological and other examination of skull and head documented in this encounter Care Teams Dairy Inspector Relationship Specialty Start Date End Date Jasson Cueva MD [address] [place] [phone] PCP - General FAMILY PRACTICE 11/03/18 documented as of this encounter
--- OUTSIDE RECORDS SUMMARY | 2024-03-19 18:42 | XMS_ITS | Encounter Summary ---
Author Organization [facility] Address [address] [place] [address]. 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
--- OUTSIDE RECORDS SUMMARY | 2024-03-19 18:42 | XMS_ITS | Encounter Summary ---
Author Organization [facility] Address [address] [place] [address]. 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
--- OUTSIDE RECORDS SUMMARY | 2024-03-19 18:42 | XMS_ITS | Encounter Summary ---
Author Organization [facility] Address [address] [place] [address]. [place], [place] [address] [place] [address] Care Team Providers Care Business Systems Administrator Name Role Phone Jasson Cueva MD Primary Care Provider Reason for Visit * Reason Onset Date Comments Pre Appt Labs 11/05/2018 Encounter Details Date Type Department Care Team (Late st Contact Info) Description 11/05/2018 Telephone [place] [id number] Aneta Fontaine RN Pre Appt Labs Social History Tobacco Use Types Packs/Day Years Used Date Smoking Tobacco: Every Day Cigarettes Smokeless Tobacco: Never Alcohol Use Standard Drinks/Week Comments Yes 0 (1 standard drink = 0.6 oz pur e alcohol) Comments No Sex and Gender Information Value Date Recorded Sex Assigned at Not on file 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 Dr. Cueva's office notified.Labs faxed to [phone]. Awaiting to hear back from office. documented in this encounter Plan of Treatment Not on file documented as of this encounter Visit Diagnoses Not on filedocumented in this encounter Care Teams Business Systems Administrator Relationship Specialty Start Date End Date Jasson Cueva MD [address] [place] [phone] PCP - General FAMILY PRACTICE 11/03/18 documented as of this encounter
--- OUTSIDE RECORDS SUMMARY | 2024-03-19 18:42 | XMS_ITS | Encounter Summary ---
Author Organization [facility] Address [address] [place] [address]. [place], [place] [address] [place] [address] Care Team Providers Care Detailer Furniture Name Role Phone Jasson Cueva MD Primary Care Provider [phone] Huber Milligan MD Unavailable [phone] Norm Hopkins MD Unavailable [phone] Encounter Details Date Type Department Care Team (Late st Contact Info) Description 06/02/2017 Abstract [facility] [address] [place] [address] , Generic Conversion, Social History Tobacco Use Types Packs/Day Years Used Date Smoking Tobacco: Never Assessed Comments Unknown Sex and Gender Information Value Date Recorded Sex Assigned at Not on file Legal 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 Gender Identity Not on file Sexual Orientation Not on file documented as of this encounter Plan of Treatment Not on file documented as of this encounter Visit Diagnoses Not on filedocumented in this encounter Additional Health Concerns Infection Onset Date Last Indicated Resolved Time COVID-19 Rule Out 09/02/2019 09/02/2019 09/04/2019 6:25 PM CDT COVID-19 Rule Out 10/20/2020 10/20/2020 10/20/2020 11:36 AM CDT COVID-19 Rule Out 10/20/2020 10/20/2020 10/20/2020 12:26 PM CDT COVID-19 Rule Out 01/12/2021 01/12/2021 01/12/2021 1:55 PM CDT COVID-19 Rule Out 12/23/2022 12/23/2022 12/23/2022 11:04 AM CDT COVID-19 Rule Out 02/27/2023 02/27/2023 02/27/2023 8:57 PM PHOTOFINISHING LABORATORY WORKER documented as of this encounter Care Teams Detailer Furniture Relationship Specialty Start Date End Date Jasson Cueva MD [address] [place] [phone] PCP - General FAMILY PRACTICE 11/03/18 Huber Milligan MD [address] [place] [phone] Consulting Physician Vascular Neurology 04/30/19 Norm Hopkins MD [address] [place] [phone] Consulting Physician CLINICAL CARDIAC ELECTROPHYSIOLOGY 04/30/19 documented as of this encounter
--- OUTSIDE RECORDS SUMMARY | 2024-03-19 18:42 | XMS_ITS | Encounter Summary ---
Author Organization [facility] Address [address] [place] [address]. [place], [place] [id number] [place] [address] Care Team Providers Care Speech And Language Assistant Name Role Phone Unavailable Primary Care Provider Unavailabl e Encounter Details Date Type Department Care Team (Late st Contact Info) Description 03/26/[address] [place] [facility] [address] [place] [address] Jasson Cueva MD [address] [place] [phone] Social History Tobacco Use Types Packs/Day Years Used Date Smoking Tobacco: Never Assessed Comments Unknown Sex and Gender Information Value Date Recorded Sex Assigned at Not on file 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
--- OUTSIDE RECORDS SUMMARY | 2024-03-19 18:42 | XMS_ITS | Encounter Summary ---
Author Organization [facility] Address [address] [place] [address]. [place] [address] [place] [address] Care Team Providers Care Project Management It Specialist Name Role Phone Jasson Cueva MD Primary Care Provider Reason for Visit * Reason Comments Arm Injury Encounter Details Date Type Department Care Team (Late st Contact Info) Description 11/03/2018 6:44 AM CDT - 11/03/2018 8:32 AM CDT Emergency [facility] [address] [facility] [place] [address] Stewart Crum, DO [address] [place] [address] Arm Injury Discharge Disposition: Home or Self Care (Routine Discharge) Social History Tobacco Use Types Packs/Day Years Used Date Smoking Tobacco: Every Day Cigarettes Smokeless Tobacco: Never Alcohol Use Standard Drinks/Week Comments Yes 0 (1 standard drink = 0.6 oz pur e alcohol) Comments No Sex and Gender Information Value Date Recorded Sex Assigned at Not on file 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 Gender Identity Not on file Sexual Orientation Not on file documented as of this encounter Last Filed Vital Signs Vital Sign Reading Time Taken Comments Blood Pressure 179/90 11/03/2018 8:30 AM CDT Pulse 89 11/03/2018 8:30 AM CDT Temperature 36.9 ??C (98.4 ??F) 11/03/2018 6:49 AM CD T Respiratory Rate 16 11/03/2018 8:30 AM CDT Oxygen Saturation 98% 11/03/2018 6:49 AM CDT Inhaled Oxygen Concentration - - Weight 59 kg (130 lb) 11/03/2018 6:49 AM CDT Height 170.2 cm (5' 7 ) 11/03/2018 6:49 AM CDT Body Mass Index 20.36 11/03/2018 6:49 AM CDT documented in this encounter Discharge Instructions * Attachments The following attachments cannot be sent through Care Everywhere. * Shoulder Fracture Discharge Instructions (Burundian) documented in this encounter Medications at Time of Discharge hydrocodone-aceta minophen (NORCO) 10-325 MG tablet Take 1 tablet by mouth every 6 (six) hours as needed for Pain. 8 tablet 11/03/2018 11/05/2018 documented as of this encounter ED Notes * Verna Singh RN - 11/03/2018 8:30 AM CDT Pt states she feels much better with sling on. Safety measures reviewed with pt and son. * Verna Singh RN - 11/03/2018 8:08 AM CDT Additional pain med given. Reviewed dx with pt and her son. Reviewed home care. Both son and pt voice understanding. * Verna Singh RN - 11/03/2018 7:[address] Crum in with Pt. * Treasure Bolivar - 11/03/2018 7:44 AM CDT ED back from Xray * Treasure Bolivar - 11/03/2018 7:26 AM CDT ED out to Xray. * Verna Singh RN - 11/03/2018 7:26 AM CDT To Xr per WC * Stewart Crum DO - 11/03/2018 7:04 AM CDT Chief Complaint Chief Complaint Patient presents with ??? Arm Injury History of Present Illness 68-year-old female presents to the emergency department complaining of right arm pain. She states that at approximately 3 AM she tripped over something on the floor and fell. She does not recall how she landed or hit her arm. He states that she did not notice any significant pain immediately afterwards, but then had swelling and pain develop. She indicates the mid upper shaft of her humerus as the origin of the pain. She reports some pain radiating to her glenohumeral joint. She denies any medical history or taking any chronic medications. She states that she took to aspirin with little relief to her pain. She states that the pain is as severe as she has ever had. She reports varun t otherwise she had been in her normal state of health. 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 Authorizing Provider hydrocodone-acetaminophen (NORCO) 10-325 MG tablet Take 1 tablet by mouth every 6 (six) hours as needed for Pain. 11/03/18 11/13/18 Yes Stewart Crum DO PAST MEDICAL HISTORY: History reviewed. No pertinent past medical history. PAST SURGICAL HISTORY: Past Surgical History: Procedure Laterality Date ??? JOINT REPLACEMENT FAMILY HISTORY: No family history on file. SOCIAL HISTORY: Social History Tobacco Use ??? Smoking status: Current Every Day Smoker Packs/day: 1.00 ??? Smokeless tobacco: Never Used Substance Use Topics ??? Alcohol use: Yes ??? Drug use: No Review of Systems Review of Systems All other systems reviewed and are negative. Physical Exam Filed Vitals: 11/03/18 0649 11/03/18 0747 BP: (!) 140/97 (!) 186/96 Pulse: 95 90 Resp: 14 16 Temp: 98.4 ??F (36.9 ??C) TempSrc: Temporal SpO2: 98% Weight: 59 kg (130 lb) Height: 5' 7 (1.702 m) Physical Exam Constitutional: She is oriented to person, place, and time. She appears well- developed and well-nourished. No distress. Mildly disheveled, looks older than stated age. HENT: Head: Normocephalic and atraumatic. Eyes: Conjunctivae are normal. Pulmonary/Chest: Effort normal and breath sounds normal. No respiratory distress. Musculoskeletal: She exhibits edema and tenderness. She exhibits no deformity. Neurological: She is alert and oriented to person, place, and time. Skin: She is not diaphoretic. Ecchymosis surrounding proximal upper arm Psychiatric: She has a normal mood and affect. Her behavior is normal. Judgment and thought contentnormal. Nursing note and vitals reviewed. Diagnostic Studies / Procedures ELECTROCARDIOGRAMS: No results found for this visit on 11/03/18. LABORATORY STUDIES: No results found for this visit on 11/03/18. IMAGING STUDIES XR HUMERUS RT MIN 2V Final Result by User, [id number] (11/03 2136) Examination: 2 views right humerus Exam Date/Time: 11/03/2018 7:45 AM Reason For Exam: trauma Fall yesterday afternoon. Bruising over the entire arm. Comparison: None Technique: AP and lateral radiographs of the right humerus Findings: Acute complete comminuted fracture of the right humeral head and surgical neck with some impaction and foreshortening. The glenohumeral relationship is preserved. The remainder of the humerus appears intact. No destructive osseous lesions. No radiopaque foreign bodies. Visualized right upper lung clear. =====IMPRESSION:===== 1. Acute comminuted fracture of the right humeral head and surgical neck with some impaction Interpreted By: Stevenson Urbina, 11/03/2018 7:51 AM ED Course / Medical Decision Making MDM Number of Diagnoses or Management Options Humeral head fracture, right, closed, initial encounter: new and requires workup Amount and/or Complexity of Data Reviewed Tests in the radiology section of CPT??: reviewed and ordered Independent visualization of images, tracings, or specimens: yes Risk of Complications, Morbidity, and/or Mortality Presenting problems: moderate Diagnostic procedures: low Management options: moderate Patient Progress Patient progress: stable Clinical Impression Humeral head fracture, right, closed, initial encounter (Primary) Disposition: Discharge Stewart Crum DO 11/03/18 0803 * Verna Singh RN - 11/03/2018 6:51 AM CDT Pt here with pain and bruising to rt upper arm. Onset one day ago after tripping in living room andstriking coffee table with arm. Pt rates pain 10/10. States took two tylenol yesterday. documented in this encounter Plan of Treatment Not on file documented as of this encounter Procedures Procedure Name Priority Date/Time Associated Diagnosis Comments XR HUMERUS RT MIN 2V STAT 11/03/2018 7:45 AM CDT documented in this encounter Results * XR HUMERUS RT MIN 2V (11/03/2018 7:45 AM CDT) Anatomical Region Laterality Modality Humerus Radiographic Sharon ging 11/03/2018 7:51 AM CDT Impressions 11/03/2018 7:52 AM CDT =====IMPRESSION:===== 1. ??Acute comminuted fracture of the right humeral head and surgical neck with some impaction Interpreted By: Stevenson Urbina, 11/03/2018 7:51 AM Narrative 11/03/2018 7:52 AM CDT Examination: 2 views right humerus Exam Date/Time: 11/03/2018 7:45 AM Reason For Exam: ??trauma ? Fall yesterday afternoon. Bruising over the entire arm. Comparison: None Technique: AP and lateral radiographs of the right humerus Findings: Acute complete comminuted fracture of the right humeral head and surgical neck with some impaction and foreshortening. The glenohumeral relationship is preserved. The remainder of the humerus appears intact. No destructive osseous lesions. No radiopaque foreign bodies. Visualized right upper lung clear. Procedure Note Stevenson Urbina MD - 11/03/2018 Examination: 2 views right humerus Exam Date/Time: 11/03/2018 7:45 AM Reason For Exam: trauma Fall yesterday afternoon. Bruising over the entire arm. Comparison: None Technique: AP and lateral radiographs of the right humerus Findings: Acute complete comminuted fracture of the right humeral headand surgical neck with some impaction and foreshortening. The glenohumeral relationship is preserved. The remainder of the humerus appears intact.No destructive osseous lesions. No radiopaque foreign bodies. Visualizedright upper lung clear. =====IMPRESSION:===== 1. Acute comminuted fracture of the right humeral head and surgicalneck with some impaction Interpreted By: Stevenson Urbina, 11/03/2018 7:51 AM Stewart Crum DO GENERAL IMAGING Final Result documented in this encounter Visit Diagnoses Diagnosis Humeral head fracture, right, closed, initial encounter- Primary documented in this encounter Administered Medications Inactive Administered Medications - up to 3 most recent administrations Medication Order MAR Action Action Date Dose Rate Site hydrocodone-acetaminophen (NORCO) 5-325 MG tablet 1 tablet 1 tablet, Oral, Once, 1 dose, On 11/03/18 at 0715, Maximum dose of acetaminophen is 4000 mg from all sources in 24 hours. Given 11/03/2018 7:14 AM CDT 1 tablet hydrocodone-acetaminophen (NORCO) 5-325 MG tablet 1 tablet 1 tablet, Oral, Once, 1 dose, On 11/03/18 at 0815, Maximum dose of acetaminophen is 4000 mg from all sources in 24 hours. Given 11/03/2018 8:05 AM CDT 1 tablet documented in this encounter Active and Recently Administered Medications Times are shown in CDT. Scheduled Medication Order 11/01/2018 11/02/2018 11/03/2018 hydrocodone-acetaminophen (NORCO) 5-325 MG tablet 1 tablet (COMPLETED) 1 tablet, Oral, Once, 1 dose, On 11/03/18 at 0715, Maximum dose of acetaminophen is 4000 mg from all sources in 24 hours. 0714 (Given - Provid er: Verna Singh RN) hydrocodone-acetaminophen (NORCO) 5-325 MG tablet 1 tablet (COMPLETED) 1 tablet, Oral, Once, 1 dose, On 11/03/18 at 0815, Maximum dose of acetaminophen is 4000 mg from all sources in 24 hours. 0805 (Given - Provid er: Verna Singh RN) documented in this encounter Care Teams Project Management It Specialist Relationship Specialty Start Date End Date Jasson Cueva MD [address] [place] [phone] PCP - General FAMILY PRACTICE 11/03/18 documented as of this encounter
--- OUTSIDE RECORDS SUMMARY | 2024-03-19 18:42 | XMS_ITS | Encounter Summary ---
Author Organization [facility] Address [address] [place] [address]. [place], [place] [id number] [place] [id number] Care Team Providers Care Paper Sales Manager Name Role Phone Jasson Cueva MD Primary Care Provider Reason for Visit * Reason Comments Shoulder Pain Right Encounter Details Date Type Department Care Team (Late st Contact Info) Description 11/05/2018 10:30 AM CDT Office Visit [facility] [address] [address] Jessica Hill FNP-YULY [address] [place] [address] Shoulder Pain (Right) Social History Tobacco Use Types Packs/Day Years Used Date Smoking Tobacco: Every Day Cigarettes Smokeless Tobacco: Never Alcohol Use Standard Drinks/Week Comments Yes 0 (1 standard drink = 0.6 oz pur e alcohol) Comments No Sex and Gender Information Value Date Recorded Sex Assigned at Not on file 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 She was seen in the ER, placed in sling, and referred to ouroffice. She states she had a CT done yesterday at [facility]. She denies numbness and tingling. She reports her pain is in the front of her shoulder. She has bruising and swelling. She is in a sling. She istaking hydrocodone for pain which she is out. She is right-handed. ROS: See HPI for pertinent positives Problem List: Patient Active Problem List Diagnosis ??? Displaced fracture of proximal end of right humerus History: Past Medical History: Diagnosis Date ??? Depression Past Surgical History: Procedure Laterality Date ??? JOINT REPLACEMENT ??? TOTAL HIP ARTHROPLASTY bilateral No family history on file. Social History Tobacco Use ??? Smoking status: Current Every Day Smoker Packs/day: 1.00 ??? Smokeless tobacco: Never Used Substance Use Topics ??? Alcohol use: Yes ??? Drug use: No Medications: Current Outpatient Medications: ??? hydrocodone-acetaminophen 10-325 MG tablet, Take 1 tablet by mouth every 6 (six) hours as needed for Pain., Disp: 30 tablet, Rfl: 0 ??? sulfamethoxazole-trimethoprim (BACTRIM DS) 800-160 MG tablet, Take 1 tablet by mouth 2 (two) times daily for 7 days., Disp: 14 tablet, Rfl: 0 No Known Allergies Objective: There is no height or weight on file to calculate BMI. Physical Exam: Constitutional: Alert and in no acute distress. Neurological: The patient was oriented to person, place, and time. Eyes: The sclera and conjunctiva were normal ENT: Hearing was normal. Neck: The appearance of the neck was normal. Cardiovascular: Normal pulses, regular rate and rhythm Pulmonary: No respiratory distress, clear to auscultation bilaterally Skin: No injuries or skin lesions. Musculoskeletal: Exam of right shoulder today reveals diffuse tenderness over proximal humerus withpalpation, stiff elbow range of motion, moderate swelling and ecchymosis to proximal humerus, minimal effusion, neurovascularly intact. Results: X-ray of right shoulder from 11-03-18 reviewed and reveals comminuted proximal humerus fracture withsuspicion for mildly displaced greater tuberosity. CT scan of right shoulder from 11-06-18 was reviewed and reveals comminuted proximal right humerus fracture with a small intra-articular body in the glenohumeral joint. There appears to be a longitudinal fracture at the greater tuberosity with slight displacement. Assessment: Encounter Diagnose(s) ICD-10-CM ICD-9-CM SNOMED CT(R) 1. Displaced fracture of proximal end of right humerus S42.201A 812.00 FRACTURE OF UPPER END OF HUMERUS BASIC METABOLIC PANEL CBC W/DIFF AUTOMATED MRSA SCREENING URINALYSIS WI REFLEX TO CULTURE ECG 12-LEAD Plan: After reviewing the x-ray and CT scan with Dr. march the recommendation is proceeding with surgery for a reverse total shoulder given the comminution of the humeral head fracture. She was placed jordon cuff and collar prior to leaving the office to help relieve pressure off the elbow. Encouraged torefrain from NSAIDs. Discussed with patient and son regarding proceeding with surgery and both wereagreeable. She will follow-up in 10 to 14 days postoperatively. Cardiac clearance was obtained by Dr. Mahoney on 11-22-18 Patient Education: The planned procedure/s, the expected benefits,the associated risks, possible complications, and alternatives to the procedure/s have been discussed in detail with the patient or family. They state that they understand, have no further questions and agree to proceed with the procedure/s as outlined. Procedure/Surgery: 11-25-18 right reverse total shoulder arthroplasty Follow up: Return in about 10 days (around 11/15/2018) for Post-Op, Staple removal, Visit with Imaging. CHANDNI CHIANG documented in this encounter Plan of Treatment Not on file documented as of this encounter Results * MRSA SCREENING (11/05/2018 12:19 PM CDT) SPECIMEN SOURCE RESPIRATORY, NOSE 11/05/2018 12:04 PM CDT [facility] MRSA BY PCR NASAL METHICILLIN RESISTANT STAPH AUREUS NOT DETECTED 11/07/2018 11:35 AM CDT [facility] NASAL STRUCTURE / Unknown 11/05/2018 12:19 PM CDT Jessica Hill SENIOR MEDICAL WRITER- MICROBIOLOGY - GENERAL ORD ERABLES Final Result [facility] [address] [place] [address], [place] [phone] [facility] [address] [place] [address], * (ABNORMAL) CBC W/DIFF AUTOMATED (11/05/2018 12:18 PM CDT) WBC 12.7(H) 4.5 - 10.8 x10'3/uL 11/05/2018 12:33 PM CDT [facility] RBC 4.28 4.10 - 5.40 x10'6/uL 11/05/2018 12:33 PM CDT [facility] HGB 13.4 12.0 - 16.0 G/DL 11/05/2018 12:33 PM CDT [facility] HCT 41.8 36.0 - 47.0 % 11/05/2018 12:33 PM CDT [facility] MCV 97.7 78.0 - 100.0 FL 11/05/2018 12:33 PM CDT [facility] MCH 31.3(H) 27.0 - 31.0 PG 11/05/2018 12:33 PM CDT [facility] MCHC 32.1(L) 33.0 - 36.0 G/DL 11/05/2018 12:33 PM CDT [facility] RDW 13.1 11.5 - 14.5 % 11/05/2018 12:33 PM CDT [facility] PLT 295 150 - 350 x10'3/uL 11/05/2018 12:33 PM CDT [facility] MPV 10.5(H) 7.4 - 10.4 FL 11/05/2018 12:33 PM CDT [facility] DIFFERENTIAL COMMENT NORMAL REFERENCE RANGE NOT ESTABLISHED FOR THE PROPORTIONAL LEUKOCYTE DIFFERENTIAL. 11/05/2018 12:33 PM CDT [facility] SEG NEUTROPHILS 73.9 % 9 12:33 PM CDT [facility] LYMPHOCYTES 15.6 % 11/05/2018 12:33 PM CDT [facility] MONOCYTES 8.6 % 11/05/2018 12:33 PM CDT [facility] EOSINOPHILS 1.3 % 11/05/2018 12:33 PM CDT [facility] BASOPHILS 0.4 % 11/05/2018 12:33 PM CDT [facility] IMMATURE GRANS % 0.2 % 11/06/19 12:33 PM CDT [facility] NRBC 0.0 % 11/05/2018 12:33 PM CDT [facility] ABS. NEUTROPHILS 9.42(H) 1.60 - 8.30 x10'3/uL 11/05/2018 12:33 PM CDT [facility] ABS. LYMPHOCYTES 1.99 0.80 - 4.70 x10'3/uL 11/05/2018 12:33 PM CDT [facility] ABS. MONOCYTES 1.09 0.00 - 1.50 x10'3/uL 11/05/2018 12:33 PM CDT [facility] ABS. EOSINOPHILS 0.16 0.00 - 0.40 x10'3/uL 11/05/2018 12:33 PM CDT [facility] ABS. BASOPHILS 0.05 0.00 - 0.20 x10'3/uL 11/05/2018 12:33 PM CDT [facility] ABS. IMMATURE GRANULOCYTES 0.03 0.00 - 0.03 x10'3/uL 11/05/2018 12:33 PM CDT [facility] ABS. NUCLEATED RBC'S 0.00 0.00 x10'3/uL 11/05/2018 12:33 PM CDT [facility] 11/05/2018 12:1 8 PM CDT Jessica Hill SENIOR MEDICAL WRITER- LABORATORY Final Resu lt [facility] [address] [place] [id number], * (ABNORMAL) BASIC METABOLIC PANEL (11/05/2018 12:18 PM CDT) SODIUM S/P/B 143 136 - 145 MMOL/L 11/05/2018 12:44 PM CDT [facility] POTASSIUM S/P/B 4.0 3.5 - 5.1 MMOL/L 11/05/2018 12:44 PM CDT [facility] CHLORIDE S/P/B 106 98 - 107 MMOL/L 11/05/2018 12:44 PM CDT [facility] CO2 24.9 21.0 - 32.0 MMOL/L 11/05/2018 12:44 PM CDT [facility] GLUCOSE 111 70 - 140 MG/DL 11/05/2018 12:44 PM CDT [facility] BUN 33(H) 6 - 24 MG/DL 11/05/2018 12:44 PM CDT [facility] CREATININE S/P/B 2.02(H) 0.55 - 1.02 MG/DL 11/05/2018 12:44 PM CDT [facility] CALCIUM S/P/B 9.7 8.4 - 10.5 MG/DL 11/05/2018 12:44 PM CDT [facility] ANION GAP 12.1 5.0 - 15.0 MMOL/L 11/05/2018 12:44 PM CDT [facility] OSMOLALITY (CALC) 304 MOSM/KG 11/05/2018 12:44 PM CDT [facility] Comment:REFERENCE RANGE NOT ESTABLISHED EGFR NON-AFR. AMER. 25(L) >89 ML/MIN/1 .73 M2 11/05/2018 12:44 PM CDT [facility] EGFR AFR. AMER. 29(L) >89 ML/MIN/1 .73 M2 11/05/2018 12:44 PM CDT [facility] GFR NOTES THE ESTIMATED GFR IS CALCULATED USING THE 2009 CKD-EPI EQUATION. THE FOLLOWING CATEGORIES FOR GRADING RENAL FUNCTION ARE RECOMMENDED BY THE INTERNATIONAL SOCIETY OF NEPHROLOGY (KDIGO 2012 CLINICAL PRACTICE GUIDELINE). 11/05/2018 12:44 PM CDT [facility] Comment: G1,NORMAL OR HIGH: >89 ml/min/1.73 m2 G2,MILDLY DECREASED: 60-89 ml/min/1.73 m2 G3A,MILDLY TO MODERATELY DECREASED: 45-59 ml/min/1.73 m2 G3B,MODERATELY TO SEVERELY DECREASED: 30-44 ml/min/1.73 m2 G4,SEVERELY DECREASED: 15-29 ml/min/1.73 m2 G5,KIDNEY FAILURE: <15 ml/min/1.73 m2 11/05/2018 12:1 8 PM CDT us Jessica Hill [facility]- LABORATORY Final Resu lt [facility] [address] [place] [address], * (ABNORMAL) URINALYSIS WI REFLEX TO CULTURE (11/05/2018 12:16 PM CDT) COLOR (U) YELLOW 11/05/2018 12:45 PM CDT [facility] TRANSPARENCY SLIGHTLY CLOUDY 11/05/2018 12:45 PM CDT [facility] SPECIFIC GRAVITY (U) 1.020 1.000 - 1.025 11/05/2018 12:45 PM CDT [facility] U PH 5.5 5.0 - 8.0 11/05/2018 12:45 PM CDT [facility] LEUKOCYTES (U) TRACE(A) NEGATIVE 11/05/2018 12:45 PM CDT [facility] NITRITES POSITIVE(A) NEGATIVE 11/05/2018 12:45 PM CDT [facility] PROTEIN (U) 3+(A) NEGATIVE 11/05/2018 12:45 PM CDT [facility] URINE GLUCOSE NEGATIVE NEGATIVE 11/05/2018 12:45 PM CDT [facility] KETONES MG/DL (U) NEGATIVE NEGATIVE 11/05/2018 12:45 PM CDT [facility] UROBILINOGEN 0.2 <1.0 EU/DL 11/05/2018 12:45 PM CDT [facility] BILIRUBIN (U) NEGATIVE NEGATIVE 11/05/2018 12:45 PM CDT [facility] BLOOD (U) TRACE(A) NEGATIVE 11/05/2018 12:45 PM CDT [facility] WBC/HPF 20-50(A) 0 - 5 /HPF 11/05/2018 12:45 PM CDT [facility] RBC/HPF 5-10(A) 0 - 5 /HPF 11/05/2018 12:45 PM CDT [facility] BACTERIA (U) 3+ /HPF 11/05/2018 12:45 PM CDT [facility] AMORPHOUS SEDIMENT URATES 11/05/2018 12:45 PM CDT [facility] CULTURE & SENSITIVITY INDICATED? SPECIMEN SETUP FOR CULTURE 11/05/2018 12:45 PM CDT [facility] URINE SPECIMEN OBTAINED BY CLEAN CATCH PROCEDURE / Unknown 11/05/2018 12:16 PM CDT us Jessica M Sergio SENIOR MEDICAL WRITER-BC URINE ORDERABLES Final Res ult [facility] [address] [place] [address], documented in this encounter Visit Diagnoses Diagnosis Displaced fracture of proximal end of right humerus- Primary documented in this encounter Care Teams Paper Sales Manager Relationship Specialty Start Date End Date Jassno Cueva MD [address] [place] [phone] PCP - General FAMILY PRACTICE 11/03/18 documented as of this encounter
--- OUTSIDE RECORDS SUMMARY | 2024-03-19 18:42 | XMS_ITS | Encounter Summary ---
Author Organization [facility] Address [address] [place] [address]. [place], [place] [address] [place] [address] Care Team Providers Care Pump Oiler Name Role Phone Unavailable Primary Care Provider Unavailabl e Encounter Details Date Type Department Care Team (Late st Contact Info) Description 08/10/[address] [phone] Moises Christianson MD [address] [place], [place] [phone] Social History Tobacco Use Types Packs/Day Years Used Date Smoking Tobacco: Never Assessed Comments Unknown Sex and Gender Information Value Date Recorded Sex Assigned at Not on file Legal 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 SUGGESTION CLERK Gender Identity Not on file Sexual Orientation Not on file documented as of this encounter Progress Notes * Moises Christianson MD - 08/10/2015 10:00 AM CDT Post-Op Alayna Waite is status post open fixation of a patellar fracture and ORIF of the left knee on 07/12/2015. No complaints with knee. Does have some back pain but thinks it's because of the way she walks with the cast. HPI: The patient reports no excessive pain and no swelling. The patient also reports using an assistive device for ambulation and weight-bearing as tolerated. In cast. PE: Peripheral neurovascular exam reveals intact sensation to light touch and intact gross motor function. Assessment: Post-op, the patient is doing well, has excellent pain control and is showing no signs of infection . Cast in good condition. Plan: Activity Restrictions: Keep cast clean and dry. Keene for back pain. Done this visit: xray . XRAYS Today reveals slight distraction in the fragment without significant interval change. To Do For Next Visit: xray and cast removal. Orders 1. Continue with our present treatment plan.; Status:Complete; Done: 10Aug2015 11:06AM 2. XR Knee 1 to 2 View Lt; Status:Active; Requested for:[id number]; 3. Hydrocodone-Acetaminophen 7.5-325 MG Oral Tablet ([place]); 1- 2 Q 4 - 6 HRS PRN PAIN Assessment 1. Aftercare following surgery (V58.89) (Z48.89) Signatures Electronically signed by : oMises Christianson M.D.; Aug 10 2015 11:06AM SUGGESTION CLERK (Author) documented in this encounter Plan of Treatment Not on file documented as of this encounter Procedures Procedure Name Priority Date/Time Associated Diagnosis Comments SURG XR KNEE LT 1-2V Routine 08/10/2015 12:24 PM CDT documented in this encounter Results * SURG XR KNEE LT 1-2V (08/10/2015 12:24 PM CDT) Anatomical Region Laterality Modality Knee IMAGES ONLY 08/10/2015 12:2 4 PM CDT 08/10/2015 12:24 PM CDT Narrative 08/10/2015 12:29 PM CDT [facility] ?? [address] [place] [address] [employer] ?? [place], [place] ? Patient Name: ALAYNA WAITE Date of : 1950 ?? Med Rec #: [id number] ??Age/Sex: 64/F ?Pt. Location: ORTHO ?? Attending Provider: MOISES CHRISTIANSON MD (TRACY) ?? Ordering Provider: MOISES CHRISTIANSON MD (TRACY) ? Study Date Order Number Procedure ?? 08/10/15 [id number] XR Knee 1 to 2 Views Lt ? Signed ? Examination: Left knee 2 views ? Exam time: 08/10/2015 ? Clinical history: Patellar fracture. ? Comparison: 07/23/2015 ? Technique: Frontal and lateral views of the left knee were obtained. ? Findings: ?? 2 orthopedic pins with fixation wires traverse across transverse patellar fracture without ?? gross change in anatomic position and alignment, taking into account difference in technique. ?? Casting material. No definite periosteal reaction identified. No other fractures. No ?? dislocation. Surgical vitor no longer visualized. ? IMPRESSION: ?? 1. Internally fixated patellar fracture, casted, grossly unchanged in anatomic position and ?? alignment, taking into account difference in technique. ? Electronically Signed By: LEANNE WHYTE M.D 08/10/15 1228 ? Dictated On: 08/10/15 1224 ?? Interpreted By: LEANNE HWYTE M.D ?? Transcribed On: 08/10/15 1224 - INF[facility] ?? Procedure Note Rizwan Fox MD - 01/09/[address] Patient Name: ALAYNA WAITE Date of : 1950 Med Rec #: [id number] Age/Sex: 64/F Pt. Location: ORTHO Attending Provider: MOISES CHRISTIANSON MD (TRACY) Ordering Provider: MOISES CHRISTIANSON MD (TRACY) Study Date Order Number Procedure 08/10/15 [id number] XR Knee 1 to 2 Views Lt Signed Examination: Left knee 2 views Exam time: 08/10/2015 Clinical history: Patellar fracture. Comparison: 07/23/2015 Technique: Frontal and lateral views of the left knee were obtained. Findings: 2 orthopedic pins with fixation wires traverse across transverse patellarfracture without gross change in anatomic position and alignment, taking into accountdifference in technique. Casting material. No definite periosteal reaction identified. No otherfractures. No dislocation. Surgical vitor no longer visualized. IMPRESSION: 1. Internally fixated patellar fracture, casted, grossly unchanged inanatomic position and alignment, taking into account difference in technique. Electronically Signed By: LEANNE WHYTE M.D 08/10/15 1228 Dictated On: 08/10/15 1224 Interpreted By: LEANNE WHYTE M.D Transcribed On: 08/10/15 1224 - [facility] us Moises Christianson MD IMAGES ONLY Final Result documented in this encounter Visit Diagnoses Not on filedocumented in this encounter
--- OUTSIDE RECORDS SUMMARY | 2024-03-19 18:42 | XMS_ITS | Encounter Summary ---
Author Organization [facility] Address [address] [place] [address]. [place], [place] [id number] [place] [address] Care Team Providers Care Corporate Travel Expert Name Role Phone Jasson Cueva MD Primary Care Provider Encounter Details Date Type Department Care Team (Late st Contact Info) Description 11/05/2018 Orders Only [facility] [address] [address] Aneta Fontaine, RN Social History Tobacco Use Types Packs/Day Years Used Date Smoking Tobacco: Every Day Cigarettes Smokeless Tobacco: Never Alcohol Use Standard Drinks/Week Comments Yes 0 (1 standard drink = 0.6 oz pur e alcohol) Comments No Sex and Gender Information Value Date Recorded Sex Assigned at Not on file Legal 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 CONFERENCE MANAGER Gender Identity Not on file Sexual Orientation Not on file documented as of this encounter Plan of Treatment Not on file documented as of this encounter Visit Diagnoses Diagnosis Acute pain of left shoulder due to trauma- Primary documented in this encounter Care Teams Corporate Travel Expert Relationship Specialty Start Date End Date Jasson Cueva MD [address] [place] [phone] PCP - General FAMILY PRACTICE 11/03/18 documented as of this encounter
--- OUTSIDE RECORDS SUMMARY | 2024-03-19 18:42 | XMS_ITS | Encounter Summary ---
Author Organization [facility] Address [address] [place] [address]. [place], [place] [address] [place] [address] Care Team Providers Care Distribution Associate Name Role Phone Jasson Cueva MD Primary Care Provider Reason for Referral * Imaging (Routine) - Closed Specialty Diagnoses / Procedures Referred By Jayce coronado Referred To Contact RADIOLOGY Diagnoses Humeral head fracture, right, closed, initial encounter Procedures CT SHOULDER RT WO CON [address] [address] Phone: tel: fax: Referral ID Status Reason Start Date Expiration Date Visits Re quested Visits Authorized [id number] Closed 11/04/2018 12/06/2019 1 1 Encounter Details Date Type Department Care Team (Late st Contact Info) Description 11/04/2018 [place] [address] Aneta Fontaine, DANIAL Social History Tobacco Use Types Packs/Day Years Used Date Smoking Tobacco: Every Day Cigarettes Smokeless Tobacco: Never Alcohol Use Standard Drinks/Week Comments Yes 0 (1 standard drink = 0.6 oz pur e alcohol) Comments No Sex and Gender Information Value Date Recorded Sex Assigned at Not on file Legal 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 INDEPENDENT LIVING ADVISOR Gender Identity Not on file Sexual Orientation Not on file documented as of this encounter Plan of Treatment Not on file documented as of this encounter Results * CT SHOULDER RT WO CON (11/04/2018 3:44 PM CDT) Anatomical Region Laterality Modality Shoulder Computed Tomogra phy 11/06/2018 10:1 5 AM CDT Impressions 11/06/2018 10:19 AM CDT IMPRESSION: Comminuted fracture proximal right humerus. Small intra-articular body in the glenohumeral joint with joint effusion glenohumeral joint. Interpreted By: Carmelo Coleman MD, 11/06/2018 10:15 AM Narrative 11/06/2018 10:19 AM CDT 11/04/2018, 1540 hours. HISTORY: Fracture. Further evaluation. EXAM: Targeted CT imaging of the right shoulder was performed with images submitted for review in the axial, the coronal and the sagittal planes. A dose lowering technique was used for this procedure, which may include, but is not limited to, dose reduction technique, automated exposure control, the use of iterative reconstruction, and ALARA (As Low As Reasonably Achievable) / Image Gently techniques. Correlation to radiographic imaging 11/03/2018. FINDINGS: Comminuted fracture proximal right humerus with the 2 main fracture lines consisting of a transverse fracture in the region of the surgical neck of the humerus with at least 7 mm anterior displacement of the diaphyseal fragment and dorsal angulation of the diaphyseal fragment. There also is a somewhat longitudinal fracture present in the base of the greater tuberosity of the humerus with slight displacement in the superior lateral direction. There are some small comminution fragments along the transverse fracture cleft in the region of the surgical neck of the humerus. Glenohumeral joint effusion suggesting hemarthrosis. Tiny calcified intra-articular body seen in the midportion of the glenohumeral joint on axial image 23 series 3. The scapula, clavicle and acromioclavicular joints appear intact. No evidence of dislocation at the glenohumeral joint. Imaged portions of the upper lungs demonstrate no mass or infiltrate. Coronary atherosclerosis. Procedure Note Carmelo Coleman MD - 11/06/2018 11/04/2018, 1540 hours. HISTORY: Fracture. Further evaluation. EXAM: Targeted CT imaging of the right shoulder was performed withimages submitted for review in the axial, the coronal and the sagittal planes. A dose lowering technique was used for this procedure, which mayinclude, but is not limited to, dose reduction technique, automated exposure control, the use of iterative reconstruction, and ALARA (As Low As Reasonably Achievable) / Image Gently techniques. Correlation to radiographic imaging 11/03/2018. FINDINGS: Comminuted fracture proximal right humerus with the 2 main fracture lines consisting of a transverse fracture in the region of the surgical neck of the humerus with at least 7 mm anterior displacement of the diaphyseal fragment and dorsal angulation of the diaphysealfragment. There also is a somewhat longitudinal fracture present in the base ofthe greater tuberosity of the humerus with slight displacement in thesuperior lateral direction. There are some small comminution fragments along the transverse fracture cleft in the region of the surgical neck of the humerus. Glenohumeral joint effusion suggesting hemarthrosis. Tiny calcified intra-articular body seen in the midportion of theglenohumeral joint on axial image 23 series 3. The scapula, clavicle and acromioclavicular joints appear intact. No evidence of dislocation at the glenohumeral joint. Imaged portions ofthe upper lungs demonstrate no mass or infiltrate. Coronary atherosclerosis. IMPRESSION: Comminuted fracture proximal right humerus. Small intra-articular bodyin the glenohumeral joint with joint effusion glenohumeral joint. Interpreted By: Carmelo Coleman MD, 11/06/2018 10:15 AM [facility] CT Final Resu lt documented in this encounter Visit Diagnoses Diagnosis Humeral head fracture, right, closed, initial encounter- Primary Humeral head fracture, right, closed, initial encounter documented in this encounter Care Teams Distribution Associate Relationship Specialty Start Date End Date Jasson Cueva MD [address] [place] [phone] PCP - General FAMILY PRACTICE 11/03/18 documented as of this encounter
--- OUTSIDE RECORDS SUMMARY | 2024-03-19 18:42 | XMS_ITS | Encounter Summary ---
Author Organization [facility] Address [address] [place] [address]. [place], [place] [address] [place] [address] Care Team Providers Care Burglar Alarm Superintendent Name Role Phone Unavailable Primary Care Provider Unavailabl e Encounter Details Date Type Department Care Team (Late st Contact Info) Description 07/07/[address] [facility] [address] [facility] [place] [address] Jasson Cueva MD [address] [place] [phone] Social History Tobacco Use Types Packs/Day Years Used Date Smoking Tobacco: Never Assessed Comments Unknown Sex and Gender Information Value Date Recorded Sex Assigned at Not on file Legal 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 HAUL DRIVER Gender Identity Not on file Sexual Orientation Not on file documented as of this encounter Plan of Treatment Not on file documented as of this encounter Visit Diagnoses Diagnosis Closed fracture of left patella Closed fracture of patella documented in this encounter
--- OUTSIDE RECORDS SUMMARY | 2024-03-19 18:42 | XMS_ITS | Encounter Summary ---
Author Organization [facility] Address [address] [place] [address]. [place], [place] [address] [place] [address] Care Team Providers Care Documentation Supervisor Name Role Phone Unavailable Primary Care Provider Unavailabl e Encounter Details Date Type Department Care Team (Late st Contact Info) Description 06/21/2014 Abstract [facility] [address] [place] [address] [place] [address] Sj Chirinos MD [address] [place] [address] Social History Tobacco Use Types Packs/Day Years Used Date Smoking Tobacco: Never Assessed Comments Unknown Sex and Gender Information Value Date Recorded Sex Assigned at Not on file Legal 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 GREY ROLL MAN Gender Identity Not on file Sexual Orientation Not on file documented as of this encounter Plan of Treatment Not on file documented as of this encounter Visit Diagnoses Diagnosis Injury of face and neck documented in this encounter
--- OUTSIDE RECORDS SUMMARY | 2024-03-19 18:42 | XMS_ITS | Encounter Summary ---
Author Organization [facility] Address [address] [place] [address]. [place], [place] [address] [place] [address] Care Team Providers Care Deck Molder Name Role Phone Unavailable Primary Care Provider Unavailabl e Encounter Details Date Type Department Care Team (Late st Contact Info) Description 10/14/2015 Abstract [facility] [address] [facility] [address] Angel Fisher MD [address] [place] [address] Social History Tobacco Use Types Packs/Day Years Used Date Smoking Tobacco: Never Assessed Comments Unknown Sex and Gender Information Value Date Recorded Sex Assigned at Not on file Legal 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 PMP CERTIFIED PROJECT MANAGER Gender Identity Not on file Sexual Orientation Not on file documented as of this encounter Plan of Treatment Not on file documented as of this encounter Visit Diagnoses Diagnosis Sedative, hypnotic or anxiolytic dependence with withdrawal, unspecified (CMS/HCC [facility]) documented in this encounter
--- OUTSIDE RECORDS SUMMARY | 2024-03-19 18:42 | XMS_ITS | Encounter Summary ---
Author Organization [facility] Address [address] [place] [address]. [place], [place] [address] [place] [address] Care Team Providers Care Public Information Director Name Role Phone Unavailable Primary Care Provider Unavailabl e Encounter Details Date Type Department Care Team (Late st Contact Info) Description 10/01/[address] 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
--- OUTSIDE RECORDS SUMMARY | 2024-03-19 18:42 | XMS_ITS | Encounter Summary ---
Author Organization [facility] Address [address] [place] [address]. [place], [place] [address] [place] [address] Care Team Providers Care Truck Driver Instructor Name Role Phone Unavailable Primary Care Provider Unavailabl e Encounter Details Date Type Department Care Team (Late st Contact Info) Description 07/23/2015 Abstract [facility] [address] [phone] Moises Christianson MD [address] [place], [place] [phone] Social History Tobacco Use Types Packs/Day Years Used Date Smoking Tobacco: Never Assessed Comments Unknown Sex and Gender Information Value Date Recorded Sex Assigned at Not on file Legal 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 MR TEACHER Gender Identity Not on file Sexual Orientation Not on file documented as of this encounter Progress Notes * Moises Christianson MD - 07/23/2015 10:00 AM CDT Referred By / Reason Patient was referred by Primary Care Physician Name: Dr. Cueva Reason: Chief Complaint 1. Knee Pain Chief Complaint: The patient presents to the office today with LEFT knee pain. History of Present Illness HPI: SURGERY 07-12-2015 Patient returns to clinic today using a walker for ambulation and wearing the immobilizer. She reports some improvement in her pain. She has been flexing her knee out of the immobilizer and she was observed standing on it in the office without it on. PREVIOUS HISTORY 07-12-2015 Patient comes to clinic today in referral from Dr. Cueva. She reports that she was walking her dog on 07-04-2015 injuring her LEFT knee. She presents in a wheelchair. She has pain with ambulation. She denies tingling or numbness. She does have pain. She has been using a cane up until today. Review of Systems See HPI for pertinent positives. Active Problems 1. Aftercare following surgery (V58.89) (Z48.89) 2. Closed displaced comminuted fracture of left patella, initial encounter (822.0) (S82.042A) Past Medical History 1. History of Anxiety (300.00) (F41.9) 2. History of depression (V11.8) (Z86.59) Surgical History 1. History of Total Hip Replacement ?? LEFT 2. History of Treatment Of Hip Fracture Family History Family History 1. No pertinent family history Social History ?? Alcohol use (V49.89) (Z78.9) ?? Current every day smoker (305.1) (F17.200) ?? Primary language is Belarusian ?? Current Meds 1. Effexor XR CP24 (Venlafaxine HCl ER); Therapy: (Recorded:08Jul2015) to Recorded 2. Hydrocodone-Acetaminophen 7.5-325 MG Oral Tablet; 1- 2 Q 4 - 6 HRS PRN PAIN; Therapy: 08Jul2015 to (Last Rx:08Jul2015) Ordered 3. LORazepam TABS; Therapy: (Recorded:[id number]) to Recorded 4. TraZODone HCl TABS; Therapy: (Recorded:[id number]) to Recorded Allergies 1. No Known Drug Allergies Physical Exam Constitutional: alert and in no acute distress. Neurological:. the patient was oriented to person, place, and time. mood and affect were appropriate. Eyes: pupils were equal in size, round, reactive to light, with normal accommodation. ENT: hearing was normal. Pulmonary: no respiratory distress. Skin: no injuries or skin lesions on the left lower extremity. Left Knee: EXAM today reveals no swelling, NVI Results/Data XRAYS today reveals fracture mildly distracted. Findings: Procedure Procedure: Cast application of the left lower leg. Material: 4 inch fiberglass and 6 rolls over Webril. Type: long leg cylinder cast. Cast/Splint: clean, dry and intact. The patient was instructed to follow up in 2 weeks. Assessment 1. Aftercare following surgery (V58.89) (Z48.89) Plan Closed displaced comminuted fracture of left patella, initial encounter 1. Hydrocodone-Acetaminophen 7.5-325 MG Oral Tablet ([place]); 1- 2 Q 4 - 6 HRS PRN PAIN I reviewed activity restrictions since she hasn?t been following my instructions for no bending or ambulation outside the immobilizer. I have placed her in a cylinder cast. Sindi were removed without complication. Signatures Electronically signed by : Mosies Christianson M.D.; Jul 26 2015 11:48AM MR TEACHER (Author) documented in this encounter Plan of Treatment Not on file documented as of this encounter Procedures Procedure Name Priority Date/Time Associated Diagnosis Comments SURG XR KNEE LT 1-2V Routine 07/23/2015 1:06 PM CDT documented in this encounter Results * SURG XR KNEE LT 1-2V (07/23/2015 1:06 PM CDT) Anatomical Region Laterality Modality Knee IMAGES ONLY 07/23/2015 1:06 PM CDT 07/23/2015 1:06 PM CDT Narrative 07/23/2015 1:11 PM CDT [facility] ?? [facility] [place] [facility] ?? [place], [place] ? Patient Name: ALAYNA WAITE Date of : 1950 ?? Med Rec #: [id number] ??Age/Sex: 64/F ?Pt. Location: ORTHO ?? Attending Provider: MOISES CHRISTIANSON MD (TRACY) ?? Ordering Provider: MOISES CHRISTIANSON MD (TRACY) ? Study Date Order Number Procedure ?? 07/23/15 [id number] XR Knee 1 to 2 Views Lt ? Signed ? Date: 07/23/2015. ? Exam: Left knee radiography. ? Comparison: Left knee radiography dated 07/07/2015. ? Technique: Frontal and lateral views of the left knee. ? History: Follow-up patellar fracture. ? Findings: The transverse patellar fracture is now approximated by 2 Christina pins and a ?? reyiam-jx-vqenx cerclage wire. There is a small suprapatellar knee joint effusion. There is ?? soft tissue prominence possibly due to the recent surgery. The joint spaces are preserved. ? Impression: Interval ORIF patellar fracture as described. Small joint effusion and soft tissue ?? edema may be reactive to the recent surgery. ? Electronically Signed By: DARSHAN MUHAMMAD MD 07/23/15 1751 ? Dictated On: 07/23/15 1306 ?? Interpreted By: DARSHAN MUHAMMAD MD ?? Transcribed On: 07/23/15 1306 - IN[facility] ?? Procedure Note Rizwan Fox MD - 01/09/[address] Patient Name: ALAYNA WAITE Date of : 1950 Med Rec #: [id number] Age/Sex: 64/F Pt. Location: ORTHO Attending Provider: MOISES CHRISTIANSON MD (TRACY) Ordering Provider: MOISES CHRISTIANSON MD (TRACY) Study Date Order Number Procedure 07/23/15 [id number] XR Knee 1 to 2 Views Lt Signed Date: 07/23/2015. Exam: Left knee radiography. Comparison: Left knee radiography dated 07/07/2015. Technique: Frontal and lateral views of the left knee. History: Follow-up patellar fracture. Findings: The transverse patellar fracture is now approximated by 2Kirschner pins and a tsidfx-kz-fmfqw cerclage wire. There is a small suprapatellar knee jointeffusion. There is soft tissue prominence possibly due to the recent surgery. The jointspaces are preserved. Impression: Interval ORIF patellar fracture as described. Small jointeffusion and soft tissue edema may be reactive to the recent surgery. Electronically Signed By: DARSHAN MUHAMMAD MD 07/23/15 1309 Dictated On: 07/23/15 1306 Interpreted By: DARSHAN MUHAMMAD MD Transcribed On: 07/23/15 1306 - [facility] us Moises Christianson MD IMAGES ONLY Final Result documented in this encounter Visit Diagnoses Not on filedocumented in this encounter
--- OUTSIDE RECORDS SUMMARY | 2024-03-19 18:42 | XMS_ITS | Encounter Summary ---
Author Organization [facility] Address [address] [place] [address]. [place], [place] [id number] [place] [address] Care Team Providers Care Web Press Operator Apprentice Name Role Phone Jasson Cueva MD Primary Care Provider Reason for Visit * Reason Onset Date Comments CT (SCAN) 11/04/2018 Encounter Details Date Type Department Care Team (Late st Contact Info) Description 11/04/2018 Telephone [place] [address] (SCAN) Social History Tobacco Use Types Packs/Day Years Used Date Smoking Tobacco: Every Day Cigarettes Smokeless Tobacco: Never Alcohol Use Standard Drinks/Week Comments Yes 0 (1 standard drink = 0.6 oz pur e alcohol) Comments No Sex and Gender Information Value Date Recorded Sex Assigned at Not on file 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 Appointment scheduled to see Jessica TAYLOR tomorrow. Son verbalizes understanding and denies any questions. documented in this encounter Plan of Treatment Not on file documented as of this encounter Visit Diagnoses Not on filedocumented in this encounter Care Teams Web Press Operator Apprentice Relationship Specialty Start Date End Date Jasson Cueva MD [address] [place] [phone] PCP - General FAMILY PRACTICE 11/03/18 documented as of this encounter
--- OUTSIDE RECORDS SUMMARY | 2024-03-19 18:42 | XMS_ITS | Encounter Summary ---
Author Organization [facility] Address [address] [place] [address]. 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
--- OUTSIDE RECORDS SUMMARY | 2024-03-19 18:42 | XMS_ITS | Encounter Summary ---
Author Organization [facility] Address [address] [place] [address]. 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 [address] ?? [place], [place] ? Patient Name: ALAYNA WAITE Date of : 1950 ?? Med Rec #: [id number] ??Age/Sex: 64/F ?Pt. Location: ASU ?? Attending Provider: MOISES CHRISTIANSON MD (TRACY) ?? Ordering Provider: MOISES CHRISTIANSON MD (TRACY) ? Study Date Order Number Procedure ?? 07/12/158756-6345 XR Fluoro 30 Min ? Signed ? FLUOROSCOPY FOR OPERATIVE GUIDANCE ? Exam time: ?? 0831 hours. ? Clinical history: ?? ORIF left patella, intraoperative fluoroscopy. ? Comparison: ?? Plain films of the left knee dated 07/07/2015. ? Technique: ?? 35 seconds of fluoroscopy was performed for intraoperative guidance. 3 spot views were ?? acquired and are made available for review. ? Findings: ?? The spot images reveal interval placement of fixation pins and cerclage wire with markedly ?? improved alignment of previously described left patellar fracture. ? IMPRESSION ?? Fluoroscopy for operative guidance. ORIF left patellar fracture. ? Electronically Signed By: MICHELINE HALE MD 07/12/1542 ? Dictated On: 07/12/1540 ?? Interpreted By: MICHELINE HALE MD ?? Transcribed On: 07/12/1540 - INFCE ?? Procedure Note Rizwan Fox MD - 01/10/[address] Patient Name: ALAYNA WAITE Date of : 1950 Med Rec #: [id number] Age/Sex: 64/F Pt. Location: ASU Attending Provider: MOISES CHRISTIANSON MD (TRACY) Ordering Provider: MOISES CHRISTIANSON MD (TRACY) Study Date Order Number Procedure 07/12/15 [id number] XR Fluoro 30 Min Signed FLUOROSCOPY FOR OPERATIVE GUIDANCE Exam time: 0831 hours. Clinical history: ORIF left patella, intraoperative fluoroscopy. Comparison: Plain films of the left knee dated 07/07/2015. Technique: 35 seconds of fluoroscopy was performed for intraoperative guidance. 3spot views were acquired and are made available for review. Findings: The spot images reveal interval placement of fixation pins and cerclagewire with markedly improved alignment of previously described left patellar fracture. IMPRESSION Fluoroscopy for operative guidance. ORIF left patellar fracture. Electronically Signed By: MICHELINE HALE MD 07/12/1542 Dictated On: 07/12/15939 Interpreted By: MICHELINE HALE MD Transcribed On: 07/12/15939 - INFCE us Moises Christianson MD FLUOROSCOPY Final Result documented in this encounter Visit Diagnoses Not on filedocumented in this encounter
--- OUTSIDE RECORDS SUMMARY | 2024-03-19 18:42 | XMS_ITS | Encounter Summary ---
Author Organization [facility] Address [address] [place] [address]. [place], [place] [address] [place] [address] Care Team Providers Care Milking Machine Operator Name Role Phone Jasson Cueva MD Primary Care Provider Reason for Visit * Reason Onset Date Comments Pre Appt Labs 11/05/2018 Encounter Details Date Type Department Care Team (Late st Contact Info) Description 11/05/2018 Telephone [facility] [place] [address] Aneta Fontaine RN Pre Appt Labs Social History Tobacco Use Types Packs/Day Years Used Date Smoking Tobacco: Every Day Cigarettes Smokeless Tobacco: Never Alcohol Use Standard Drinks/Week Comments Yes 0 (1 standard drink = 0.6 oz pur e alcohol) Comments No Sex and Gender Information Value Date Recorded Sex Assigned at Not on file 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 Antibiotic sent into pharmacy. documented in this encounter Plan of Treatment Not on file documented as of this encounter Visit Diagnoses Not on filedocumented in this encounter Care Teams Milking Machine Operator Relationship Specialty Start Date End Date Jasson Cueva MD [address] [place] [address] PCP - General FAMILY PRACTICE 11/03/18 documented as of this encounter
--- OUTSIDE RECORDS SUMMARY | 2024-03-19 18:42 | XMS_ITS | Encounter Summary ---
Author Organization [facility] Address [address] [place] [address]. [place], [place] [address] [place] [address] Care Team Providers Care Self Propelled Dredge Operator Name Role Phone Unavailable Primary Care Provider Unavailabl e Encounter Details Date Type Department Care Team (Late st Contact Info) Description 07/12/[address] 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
--- OUTSIDE RECORDS SUMMARY | 2024-03-19 18:42 | XMS_ITS | Encounter Summary ---
Author Organization [facility] Address [address] [place] [address]. 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 HPI: The patient reports no calf swelling and no leg pain. The patient also reports using an assistive device for ambulation and weight-bearing as tolerated. PE: The knee demonstrates. cast on in good condition. No knee swelling or redness out of cast. Tests for DVT and compartment syndrome reveal no calf swelling and no calf tenderness. Assessment: Post-op, the patient is doing well, has excellent pain control and is showing no signs of infection. Plan: Activity Restrictions: The patient is advised to use a walker, to weight bear as tolerated and Mustuse walker for ambulation; gentle range of motion only. Done this visit: xray and cast removal . XRAYS Today reveal hardware in good position with progressive healing. Follow up: 2 weeks. Orders 1. Continue with our present treatment plan.; Status:Complete; Done: 25Aug2015 01:16PM Assessment 1. Aftercare following surgery (V58.89) (Z48.89) Results/Data Results [Data Includes: Last 7 Days] XR Knee 1 to 2 View Lt XR Knee 1 to 2 View Lt: [address] Patient Name: ALAYNA WAITE Date of : 1950 Med Rec #: [id number] Age/Sex: 65/F Pt. Location: ORTHO Attending Provider: MOISES CHRISTIANSON MD (TRACY) Ordering Provider: MOISES CHRISTIANSON MD (TRACY) Study Date Order Number Procedure 08/24/15 [id number] XR Knee 1 to 2 Views Lt Signed EXAMINATION: X-RAY LEFT KNEE 2 VIEWS EXAM TIME: 1135 hours. COMPARISON: 08/10/2015. HISTORY: Left patella fracture post surgical fixation, follow-up evaluation. TECHNIQUE: AP and lateral views of the left knee are submitted for evaluation. FINDINGS: Stable postoperative changes of hardware fixation of a left patellar fracture. Remainder of the osseous structures appear intact. No dislocation. IMPRESSION: Stable operative changes of hardware fixation left patella fracture. Electronically Signed By: IRINA MANZANO MD 08/24/15 1156 Dictated On: 08/24/15 1154 Interpreted By: IRINA MANZANO MD Transcribed On: 08/24/15 1154 - INFCE Signatures Electronically signed by : Moises Christianson M.D.; Aug 25 2015 1:16PM SWEAT BAND SEWER (Author) documented in this encounter Plan of Treatment Not on file documented as of this encounter Procedures Procedure Name Priority Date/Time Associated Diagnosis Comments SURG XR KNEE LT 1-2V Routine 2015 11:54 AM CDT documented in this encounter Results * SURG XR KNEE LT 1-2V (2015 11:54 AM CDT) Anatomical Region Laterality Modality Knee IMAGES ONLY 2015 11:5 4 AM CDT 2015 11:54 AM CDT Narrative 2015 11:[address] [facility] ?? [address] [employer] ?? [place], [place] ? Patient Name: ALAYNA WAITE Date of : 1950 ?? Med Rec #: [id number] ??Age/Sex: 65/F ?Pt. Location: ORTHO ?? Attending Provider: MOISES CHRISTIANSON MD (TRACY) ?? Ordering Provider: MOISES CHRISTIANSON MD (TRACY) ? Study Date Order Number Procedure ?? 08/24/15 [id number] XR Knee 1 to 2 Views Lt ? Signed ? EXAMINATION: ?? X-RAY LEFT KNEE 2 VIEWS ? EXAM TIME: ?? 1135 hours. ? COMPARISON: ?? 08/10/2015. ? HISTORY: ?? Left patella fracture post surgical fixation, follow-up evaluation. ? TECHNIQUE: ?? AP and lateral views of the left knee are submitted for evaluation. ? FINDINGS: ? Stable postoperative changes of hardware fixation of a left patellar fracture. Remainder of ?? the osseous structures appear intact. No dislocation. ? IMPRESSION: ? Stable operative changes of hardware fixation left patella fracture. ? Electronically Signed By: IRINA MANZANO MD 08/24/15 4989 ? Dictated On: 08/24/15 1156 ?? Interpreted By: IRINA MANZANO O MD ?? Transcribed On: 08/24/15 1154 - INFCE ?? Procedure Note Rizwan Fox MD - 01/10/[address] Patient Name: ALAYNA WAITE Date of : 1950 Med Rec #: [id number] Age/Sex: 65/F Pt. Location: ORTHO Attending Provider: MOISES CHRISTIANSON MD (TRACY) Ordering Provider: MOISES CHRISTIANSON MD (TRACY) Study Date Order Number Procedure 08/24/15 [id number] XR Knee 1 to 2 Views Lt Signed EXAMINATION: X-RAY LEFT KNEE 2 VIEWS EXAM TIME: 1135 hours. COMPARISON: 08/10/2015. HISTORY: Left patella fracture post surgical fixation, follow-up evaluation. TECHNIQUE: AP and lateral views of the left knee are submitted for evaluation. FINDINGS: Stable postoperative changes of hardware fixation of a left patellarfracture. Remainder of the osseous structures appear intact. No dislocation. IMPRESSION: Stable operative changes of hardware fixation left patella fracture. Electronically Signed By: IRINA MANZANO MD 08/24/15 1156 Dictated On: 08/24/15 115 Interpreted By: IRINA MANZANO MD Transcribed On: 08/24/15 1154 - INFCE Moises Christianson MD IMAGES ONLY Final Result documented in this encounter Visit Diagnoses Not on filedocumented in this encounter
--- OUTSIDE RECORDS SUMMARY | 2024-03-19 18:42 | XMS_ITS | Encounter Summary ---
Author Organization [facility] Address [address] [place] [address]. 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 Using walker. Pain improved. No complaints. HPI: The patient reports no excessive pain and no swelling. The patient also reports using an assistive device for ambulation and weight-bearing as tolerated. PE: The surgical incision site was clean, dry and intact. The knee demonstrates no warmth, no erythema and no swelling. Full range of motion. Tests for DVT and compartment syndrome reveal no calf swelling and no calf tenderness. Assessment: Post-op, the patient is doing well, has excellent pain control and is showing no signs of infection . wean walker. Plan: Activity Restrictions: advance as tolerated. Done this visit: xray . XRAYS today reveals progressive healing. Defect anterior still filling in. PT Referral and VNA: for 4 weeks . I hereby certify that these services are medically necessary. Follow up: 4 weeks. Orders 1. Continue with our present treatment plan.; Status:Complete; Done: 09Sep2015 12:46PM 2. You may continue or resume your normal level of activity.; Status:Complete; Done: 09Sep2015 12:46PM Assessment 1. Aftercare following surgery (V58.89) (Z48.89) Results/Data Results [Data Includes: Last 7 Days] XR Knee 1 to 2 View Lt XR Knee 1 to 2 View Lt: [address] Patient Name: ALAYNA WIATE Date of : 1950 Med Rec #: [id number] Age/Sex: 65/F Pt. Location: ORTHO Attending Provider: MOISES CHRISTIANSON MD (TRACY) Ordering Provider: MOISES CHRISTIANSON MD (TRACY) Study Date Order Number Procedure 09/08/15 [id number] XR Knee 1 to 2 Views Lt Signed Date: 09/08/2015. Exam: Left knee radiography. Comparison: Left knee radiography dated 2015. Technique: Frontal and lateral views left knee. History: Follow-up patellar fracture with surgery. Findings: There is pin and cerclage wire fixation of a transverse fracture of the left patella. There is some degree of separation of fracture margins, but this finding is unchanged. There is anterior knee soft tissue swelling. There is likely a scant knee joint effusion. The medial and lateral compartments appear normal. Impression: Unchanged hardware and transverse fracture of the left patella. Soft tissue swelling. Electronically Signed By: DARSHAN MUHAMMAD MD 09/08/152149 Dictated On: 09/08/152146 Interpreted By: DARSHAN MUHAMMAD MD Transcribed On: 09/08/152146 - INFCE Signatures Electronically signed by : Moises Christianson M.D.; Sep 09 2015 12:47PM TISSUE RECOVERY TECHNICIAN (Author) documented in this encounter Plan of Treatment Not on file documented as of this encounter Procedures Procedure Name Priority Date/Time Associated Diagnosis Comments SURG XR KNEE LT 1-2V Routine 09/08/2015 9:47 PM CDT documented in this encounter Results * SURG XR KNEE LT 1-2V (09/08/2015 9:47 PM CDT) Anatomical Region Laterality Modality Knee IMAGES ONLY 09/08/2015 9:47 PM CDT 09/08/2015 9:47 PM CDT Narrative 09/08/2015 9:51 PM CDT [facility] ?? [facility] ?? [place], [place] ? Patient Name: ALAYNA WAITE Date of : 1950 ?? Med Rec #: [id number] ??Age/Sex: 65/F ?Pt. Location: ORTHO ?? Attending Provider: MOISES CHRISTIANSON MD (TRACY) ?? Ordering Provider: MOISES CHRISTIANSON MD (TRACY) ? Study Date Order Number Procedure ?? 09/08/15 [id number] XR Knee 1 to 2 Views Lt ? Signed ? Date: 09/08/2015. ? Exam: Left knee radiography. ? Comparison: Left knee radiography dated 2015. ? Technique: Frontal and lateral views left knee. ? History: Follow-up patellar fracture with surgery. ? Findings: There is pin and cerclage wire fixation of a transverse fracture of the left ?? patella. There is some degree of separation of fracture margins, but this finding is ?? unchanged. There is anterior knee soft tissue swelling. There is likely a scant knee joint ?? effusion. The medial and lateral compartments appear normal. ? Impression: Unchanged hardware and transverse fracture of the left patella. Soft tissue ?? swelling. ? Electronically Signed By: DARSHAN MUHAMMAD MD 09/08/152149 ? Dictated On: 09/08/152146 ?? Interpreted By: DRASHAN MUHAMMAD MD ?? Transcribed On: 09/08/152146 - INFCE ?? Procedure Note Rizwan Fox MD - 01/09/[address] Patient Name: ALAYNA WAITE Date of : 1950 Med Rec #: [id number] Age/Sex: 65/F Pt. Location: ORTHO Attending Provider: MOISES CHRISTIANSON MD (TRACY) Ordering Provider: MOISES CHRISTIANSON MD (TRACY) Study Date Order Number Procedure 09/08/15 [id number] XR Knee 1 to 2 Views Lt Signed Date: 09/08/2015. Exam: Left knee radiography. Comparison: Left knee radiography dated 2015. Technique: Frontal and lateral views left knee. History: Follow-up patellar fracture with surgery. Findings: There is pin and cerclage wire fixation of a transversefracture of the left patella. There is some degree of separation of fracture margins, but thisfinding is unchanged. There is anterior knee soft tissue swelling. There is likely ascant knee joint effusion. The medial and lateral compartments appear normal. Impression: Unchanged hardware and transverse fracture of the leftpatella. Soft tissue swelling. Electronically Signed By: DARSHAN MUHAMMAD MD 09/08/152149 Dictated On: 09/08/152146 Interpreted By: DARSHAN MUHAMMAD MD Transcribed On: 09/08/152146 - INFCE us Moises Christianson MD IMAGES ONLY Final Result documented in this encounter Visit Diagnoses Not on filedocumented in this encounter
--- OUTSIDE RECORDS SUMMARY | 2024-03-19 18:42 | XMS_ITS | Encounter Summary ---
Author Organization [facility] Address [address] [place] [address]. [place], [place] [address] [place] [address] Care Team Providers Care Math Teacher Name Role Phone Unavailable Primary Care Provider Unavailabl e Encounter Details Date Type Department Care Team (Late st Contact Info) Description 07/08/2015 Abstract [facility] [address] [place] [phone] Moises Christianson MD [address] [place], [place] [id number] Social History Tobacco Use Types Packs/Day Years Used Date Smoking Tobacco: Never Assessed Comments Unknown Sex and Gender Information Value Date Recorded Sex Assigned at Not on file Legal 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 STAMPER 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 Gender Identity Not on file Sexual Orientation Not on file documented as of this encounter Last Filed Vital Signs Vital Sign Reading Time Taken Comments Blood Pressure 119/66 07/08/2015 5:50 PM CDT Pulse - - Temperature - - Respiratory Rate - - Oxygen Saturation - - Inhaled Oxygen Concentration - - Weight 59 kg (130 lb) 07/08/2015 5:49 PM CDT Height 170.2 cm (5' 7 ) 07/08/2015 5:49 PM CDT Body Mass Index 20.36 07/08/2015 5:49 PM CDT documented in this encounter Progress Notes * Moises Christianson MD - 07/08/2015 1:30 PM CDT Referred By / Reason Patient was referred by Primary Care Physician Name: Dr. Cueva Reason: Chief Complaint 1. Knee Injury Chief Complaint: The patient presents to the office today with LEFT knee pain. History of Present Illness HPI: Patient comes to clinic today in referral from Dr. Cueva. She reports that she was walking [employer] on 07-04-2015 injuring her LEFT knee. She presents in a wheelchair. She has pain with ambulation. She denies tingling or numbness. She does have pain. She has been using a cane up until today. Review of Systems See HPI for pertinent positives. Active Problems 1. Closed displaced comminuted fracture of left patella, [...] smoker (305.1) (F17.200) ?? Primary language is Burmese ?? Current Meds 1. Effexor XR CP24 (Venlafaxine HCl ER); Therapy: (Recorded:08Jul2015) to Recorded 2. LORazepam TABS; Therapy: (Recorded:08Jul2015) to Recorded 3. TraZODone HCl TABS; Therapy: (Recorded:08Jul2015) to Recorded Allergies 1. No Known Drug Allergies Vitals Recorded: 08Jul2015 05:50PM Recorded: 08Jul2015 05:49PM Systolic 119 Diastolic 66 BP Medical Reason Procedure not indicated Not able to obtain height Patient stated height Patient stated height Height 5 ft 7 in Weight 130 lb BMI Calculated 20.36 BSA Calculated 1.68 Unable to obtain weight Patient stated weight Patient stated weight Physical Exam Constitutional: alert and in no acute distress. Neurological:. the patient was oriented to person, place, and time. mood and affect were appropriate. Eyes: pupils were equal in size, round, reactive to light, with normal accommodation. ENT: hearing was normal. Neck: the appearance of the neck was normal. Cardiovascular: heart rate and rhythm were normal. Pulmonary: no respiratory distress. Abdomen: non-tender. Skin: no injuries or skin lesions on the left lower extremity. Left Knee: EXAM today reveals medial joint line tenderness, limited range of motion, NVI, edema with ecchymosis Results/Data Previous XRAYS today reveals displaced patella fracture. Findings: Assessment 1. Closed displaced comminuted fracture of left patella, initial encounter (822.0) (S82.042A) Plan Closed displaced comminuted fracture of left patella, initial encounter 1. Hydrocodone-Acetaminophen 7.5-325 MG Oral Tablet ([place]); 1- 2 Q 4 - 6 HRS PRN PAIN 2. Continue with our present treatment plan.; Status:Complete; Done: 08Jul2015 05:53PM The planned procedure/s, the expected benefits,the associated risks,possible complications, and alternatives to the procedure/s have been discussed in detail with the patient or family. They state that they understand, have no further questions and agree to proceed with the procedure/s as outlined. Procedures/Surgery: 07/12/2015 Open reduction internal fixation LEFT patella fracture We have recommended surgery and she'll return 2 weeks after surgery for post operative evaluation. We did provide her with an immobolizer and she knows she can only weight bear in the brace. Signatures Electronically signed by : Moises Christianson M.D.; Jul 08 2015 5:54PM STAMPER BLOCKER (Author) documented in this encounter Plan of Treatment Not on file documented as of this encounter Visit Diagnoses Not on filedocumented in this encounter
--- OUTSIDE RECORDS SUMMARY | 2024-03-19 18:42 | XMS_ITS | Encounter Summary ---
Author Organization [facility] Address [address] [place] [address]. [place], [place] [address] [place] [address] Care Team Providers Care Tax Analyst Name Role Phone Unavailable Primary Care Provider Unavailabl e Encounter Details Date Type Department Care Team (Late st Contact Info) Description 10/15/[address] [place] [facility] [address] 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
--- OUTSIDE RECORDS SUMMARY | 2024-03-19 18:42 | XMS_ITS | Encounter Summary ---
Author Organization [facility] Address [address] [place] [address]. [place], [place] [address] [place] [address] Care Team Providers Care Certified Master Safecracker Name Role Phone Jasson Cueva MD Primary Care Provider Huber [place] MD Unavailable [phone] Norm Hopkins MD Unavailable [phone] Encounter Details Date Type Department Care Team (Late st Contact Info) Description 2018 Abstract [facility] [address] [place] [address] , Generic Conversion, Social History Tobacco Use Types Packs/Day Years Used Date Smoking Tobacco: Never Assessed Comments Unknown Sex and Gender Information Value Date Recorded Sex Assigned at Not on file Legal 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 LINER MAN Gender Identity Not on file Sexual [...] Rule Out 02/27/2023 02/27/2023 02/27/2023 8:57 PM LINER MAN documented as of this encounter Care Teams Certified Master Safecracker Relationship Specialty Start Date End Date Jasson Cueva MD [address] [place] [phone] PCP - General FAMILY PRACTICE 11/03/18 Huber [place] MD [address] [place] [phone] Consulting Physician Vascular Neurology 04/30/19 Norm Hopkins MD [address] [place] [address] Consulting Physician CLINICAL CARDIAC ELECTROPHYSIOLOGY 04/30/19 documented as of this encounter
--- OUTSIDE RECORDS SUMMARY | 2024-03-19 18:42 | XMS_ITS | Encounter Summary ---
Author Organization [facility] Address [address] [place] [address]. 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
--- OUTSIDE RECORDS SUMMARY | 2024-03-19 18:42 | XMS_ITS | Encounter Summary ---
Author Organization [facility] Address [address] [place] [address]. 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
--- OUTSIDE RECORDS SUMMARY | 2024-03-19 18:42 | XMS_ITS | Encounter Summary ---
Author Organization [facility] Address [address] [place] [address]. [place], [place] [address] [place] [address] Care Team Providers Care Lunch Truck Operator Name Role Phone Jasson Cueva MD Primary Care Provider Encounter Details Date Type Department Care Team (Late st Contact Info) Description 11/05/2018 11:45 AM CDT - 11/05/2018 12:02 PM [facility] Hospital Encounter [facility] [address] [place] [place] [phone] Jessica Hill, [facility] [address] [place] [address] Discharge Disposition: Home or Self Care (Routine Discharge) Social History Tobacco Use Types Packs/Day Years Used Date Smoking Tobacco: Every Day Cigarettes Smokeless Tobacco: Never Alcohol Use Standard Drinks/Week Comments Yes 0 (1 standard drink = 0.6 oz pur e alcohol) Comments No Sex and Gender Information Value Date Recorded Sex Assigned at Not on file Legal 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 PRINTED CIRCUIT BOARD PANELS 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 Gender Identity Not on file Sexual Orientation [...] Procedure Name Priority Date/Time Associated Diagnosis Comments MRSA SCREENING Routine 11/05/2018 12:19 PM CDT Displaced fracture of proximal end of right humerus BASIC METABOLIC PANEL Routine 11/05/2018 12:18 PM CDT Displaced fracture of proximal end of right humerus CBC W/DIFF AUTOMATED Routine 11/05/2018 12:18 PM CDT Displaced fracture of proximal end of right humerus URINALYSIS WI REFLEX TO CULTURE Routine 11/05/2018 12:16 PM CDT Displaced fracture of proximal end of right humerus URINE BACTERIA CULTURE Routine 11/05/2018 12:03 PM CDT documented in this encounter Results * MRSA SCREENING (11/05/2018 12:19 PM CDT) SPECIMEN SOURCE RESPIRATORY, NOSE 11/05/2018 12:04 PM CDT [facility] MRSA BY PCR NASAL METHICILLIN RESISTANT STAPH AUREUS NOT DETECTED 11/07/2018 11:35 AM CDT [facility] NASAL STRUCTURE / Unknown 11/05/2018 12:19 PM CDT us Jessica Hill CELL PHONE REPAIR TECHNICIAN- MICROBIOLOGY - GENERAL ORD ERABLES Final Result [facility] [address] [place] [place] [address], [place] [phone] [facility] [address] [place] [address], [place] [phone] * (ABNORMAL) CBC W/DIFF AUTOMATED (11/05/2018 12:18 PM CDT) WBC 12.7(H) 4.5 - 10.8 x10'3/uL 11/05/2018 12:33 PM CDT [facility] RBC 4.28 4.10 - 5.40 x10'6/uL 11/05/2018 12:33 PM CDT [facility] HGB 13.4 12.0 - 16.0 G/DL 11/05/2018 12:33 PM CDT [facility] HCT 41.8 36.0 - 47.0 % 11/05/2018 12:33 PM CDT [facility] MCV 97.7 78.0 - 100.0 FL 11/05/2018 12:33 PM CDT [facility] MCH 31.3(H) 27.0 - 31.0 PG 11/05/2018 12:33 PM CDT [facility] MCHC 32.1(L) 33.0 - 36.0 G/DL 11/05/2018 12:33 PM CDT [facility] RDW 13.1 11.5 - 14.5 % 11/05/2018 12:33 PM CDT [facility] PLT 295 150 - 350 x10'3/uL 11/05/2018 12:33 PM CDT [facility] MPV 10.5(H) 7.4 - 10.4 FL 11/05/2018 12:33 PM CDT [facility] DIFFERENTIAL COMMENT NORMAL REFERENCE RANGE NOT ESTABLISHED FOR THE PROPORTIONAL LEUKOCYTE DIFFERENTIAL. 11/05/2018 12:33 PM CDT [facility] SEG NEUTROPHILS 73.9 % 9 12:33 PM CDT [facility] LYMPHOCYTES 15.6 % 11/05/2018 12:33 PM CDT [facility] MONOCYTES 8.6 % 11/05/2018 12:33 PM CDT [facility] EOSINOPHILS 1.3 % 11/05/2018 12:33 PM CDT [facility] BASOPHILS 0.4 % 11/05/2018 12:33 PM CDT [facility] IMMATURE GRANS % 0.2 % 11/06/19 12:33 PM CDT [facility] NRBC 0.0 % 11/05/2018 12:33 PM CDT [facility] ABS. NEUTROPHILS 9.42(H) 1.60 - 8.30 x10'3/uL 11/05/2018 12:33 PM CDT [facility] ABS. LYMPHOCYTES 1.99 0.80 - 4.70 x10'3/uL 11/05/2018 12:33 PM CDT [facility] ABS. MONOCYTES 1.09 0.00 - 1.50 x10'3/uL 11/05/2018 12:33 PM CDT [facility] ABS. EOSINOPHILS 0.16 0.00 - 0.40 x10'3/uL 11/05/2018 12:33 PM CDT [facility] ABS. BASOPHILS 0.05 0.00 - 0.20 x10'3/uL 11/05/2018 12:33 PM CDT [facility] ABS. IMMATURE GRANULOCYTES 0.03 0.00 - 0.03 x10'3/uL 11/05/2018 12:33 PM CDT [facility] ABS. NUCLEATED RBC'S 0.00 0.00 x10'3/uL 11/05/2018 12:33 PM CDT [facility] 11/05/2018 12:1 8 PM CDT Jesisca Hill [facility] Final Resu lt [facility] [address] [place] [address], * (ABNORMAL) BASIC METABOLIC PANEL (11/05/2018 12:18 PM CDT) SODIUM S/P/B 143 136 - 145 MMOL/L 11/05/2018 12:44 PM CDT [facility] POTASSIUM S/P/B 4.0 3.5 - 5.1 MMOL/L 11/05/2018 12:44 PM CDT [facility] CHLORIDE S/P/B 106 98 - 107 MMOL/L 11/05/2018 12:44 PM T [facility] CO2 24.9 21.0 - 32.0 MMOL/L 11/05/2018 12:44 PM [facility] GLUCOSE 111 70 - 140 MG/DL 11/05/2018 12:44 PM [facility] BUN 33(H) 6 - 24 MG/DL 11/05/2018 12:44 PM [facility] CREATININE S/P/B 2.02(H) 0.55 - 1.02 MG/DL 11/05/2018 12:44 PM [facility] CALCIUM S/P/B 9.7 8.4 - 10.5 MG/DL 11/05/2018 12:44 PM [facility] ANION GAP 12.1 5.0 - 15.0 MMOL/L 11/05/2018 12:44 PM [facility] OSMOLALITY (CALC) 304 MOSM/KG 11/05/2018 12:44 PM T [facility] Comment:REFERENCE RANGE NOT ESTABLISHED EGFR NON-AFR. AMER. 25(L) >89 ML/MIN/1 .73 M2 11/05/2018 12:44 PM [facility] EGFR AFR. AMER. 29(L) >89 ML/MIN/1 .73 M2 11/05/2018 12:44 PM [facility] GFR NOTES THE ESTIMATED GFR IS CALCULATED USING THE 2009 CKD-EPI EQUATION. THE FOLLOWING CATEGORIES FOR GRADING RENAL FUNCTION ARE RECOMMENDED BY THE INTERNATIONAL SOCIETY OF NEPHROLOGY (KDIGO 2012 CLINICAL PRACTICE GUIDELINE). 11/05/2018 12:44 PM [facility] Comment: G1,NORMAL OR HIGH: >89 ml/min/1.73 m2 G2,MILDLY DECREASED: 60-89 ml/min/1.73 m2 G3A,MILDLY TO MODERATELY DECREASED: 45-59 ml/min/1.73 m2 G3B,MODERATELY TO SEVERELY DECREASED: 30-44 ml/min/1.73 m2 G4,SEVERELY DECREASED: 15-29 ml/min/1.73 m2 G5,KIDNEY FAILURE: <15 ml/min/1.73 m2 11/05/2018 12:1 8 PM CDT us Jessica Hill CELL PHONE REPAIR TECHNICIAN- LABORATORY Final Resu lt [facility] [address] [place] [address], [place] [phone] * (ABNORMAL) URINALYSIS WI REFLEX TO CULTURE (11/05/2018 12:16 PM CDT) COLOR (U) YELLOW 11/05/2018 12:45 PM CDT [facility] TRANSPARENCY SLIGHTLY CLOUDY 11/05/2018 12:45 PM CDT [facility] SPECIFIC GRAVITY (U) 1.020 1.000 - 1.025 11/05/2018 12:45 PM CDT [facility] U PH 5.5 5.0 - 8.0 11/05/2018 12:45 PM CDT [facility] LEUKOCYTES (U) TRACE(A) NEGATIVE 11/05/2018 12:45 PM CDT [facility] NITRITES POSITIVE(A) NEGATIVE 11/05/2018 12:45 PM CDT [facility] PROTEIN (U) 3+(A) NEGATIVE 11/05/2018 12:45 PM CDT [facility] URINE GLUCOSE NEGATIVE NEGATIVE 11/05/2018 12:45 PM CDT [facility] KETONES MG/DL (U) NEGATIVE NEGATIVE 11/05/2018 12:45 PM CDT [facility] UROBILINOGEN 0.2 <1.0 EU/DL 11/05/2018 12:45 PM CDT [facility] BILIRUBIN (U) NEGATIVE NEGATIVE 11/05/2018 12:45 PM CDT [facility] BLOOD (U) TRACE(A) NEGATIVE 11/05/2018 12:45 PM CDT [facility] WBC/HPF 20-50(A) 0 - 5 /HPF 11/05/2018 12:45 PM CDT [facility] RBC/HPF 5-10(A) 0 - 5 /HPF 11/05/2018 12:45 PM CDT [facility] BACTERIA (U) 3+ /HPF 11/05/2018 12:45 PM CDT [facility] AMORPHOUS SEDIMENT URATES 11/05/2018 12:45 PM CDT [facility] CULTURE & SENSITIVITY INDICATED? SPECIMEN SETUP FOR CULTURE 11/05/2018 12:45 PM CDT [facility] URINE SPECIMEN OBTAINED BY CLEAN CATCH PROCEDURE / Unknown 11/05/2018 12:16 PM CDT Jessica Hill CELL PHONE REPAIR TECHNICIAN- URINE ORDERABLES Final Res ult [facility] [address] [place] [address], * CULTURE URINE (11/05/2018 12:03 PM CDT) SPEC DESCRIPTION URINE CLEAN CATCH 11/05/2018 12:42 PM CDT [facility] SPECIAL REQUESTS NO SPECIAL REQUEST 11/05/2018 12:42 PM CDT [facility] CULTURE RESULT GROSS CONTAMINATIO N. SUBMIT NEW SPECIMEN UPON DOCTOR'S REQUEST. 11/06/2018 8:35 PM CDT [facility] CULTURE RESULT >100,000 CFU/mL GRAM NEGATIVE RODS 1 11/06/2018 8:35 PM CDT [facility] CULTURE RESULT >50,000 TO 100,000 CFU/mL GRAM NEGATIVE RODS 2 11/06/2018 8:35 PM CDT [facility] CULTURE RESULT >100,000 CFU/mL GRAM POSITIVE COCCI 11/06/2018 8:35 PM CDT [facility] URINE SPECIMEN OBTAINED BY CLEAN CATCH PROCEDURE / Unknown 11/05/2018 12:03 PM CDT 11/05/2018 12:41 PM CDT Jessica Hill CELL PHONE REPAIR TECHNICIAN- MICROBIOLOGY - GENERAL ORD ERABLES Final Result [facility] [address] [place] [address], [place] [phone] [id number] [facility] [address] [place] [address], documented in this encounter Visit Diagnoses Diagnosis Displaced fracture of proximal end of right humerus documented in this encounter Care Teams Lunch Truck Operator Relationship Specialty Start Date End Date Jasson Cueva MD [address] [place] [phone] PCP - General FAMILY PRACTICE 11/03/18 documented as of this encounter
--- OUTSIDE RECORDS SUMMARY | 2024-03-19 18:42 | XMS_ITS | Encounter Summary ---
Author Organization [facility] Address [address] [place] [address]. [place], [place] [address] [place] [address] Care Team Providers Care Flight Test Supervisor Name Role Phone Jasson Cueva MD Primary Care Provider Reason for Referral * Imaging (Routine) - Closed Specialty Diagnoses / Procedures Referred By Jayce coronado Referred To Contact RADIOLOGY Diagnoses Humeral head fracture, right, closed, initial encounter Procedures CT [place]OULDER [place] [address] Phone: tel: fax: Referral ID Status Reason Start Date Expiration Date Visits Re quested Visits Authorized [id number] Closed 11/04/2018 12/06/2019 1 1 Reason for Visit * Imaging (Routine) - Closed Specialty Diagnoses / Procedures Referred By Jayce coronado Referred To Contact RADIOLOGY Diagnoses Humeral head fracture, right, closed, initial encounter Procedures CT [place] [address] Phone: tel: fax: Referral ID Status Reason Start Date Expiration Date Visits Re quested Visits Authorized [id number] Closed 11/04/2018 12/06/2019 1 1 Encounter Details Date Type Department Care Team (Late st Contact Info) Description 11/04/2018 3:30 PM CDT - 11/04/2018 11:59 PM CDT Hospital Encounter [facility] [address] [place] [address] Sergio Jessica M, [facility] [address] [place] [address] Discharge Disposition: Home or Self Care (Routine Discharge) Social History Tobacco Use Types Packs/Day Years Used Date Smoking Tobacco: Every Day Cigarettes Smokeless Tobacco: Never Alcohol Use Standard Drinks/Week Comments Yes 0 (1 standard drink = 0.6 oz pur e alcohol) Comments No Sex and Gender Information Value Date Recorded Sex Assigned at Not on file Legal 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 STRAIGHT CUTTER Gender Identity Not on file Sexual Orientation Not on file documented as of this encounter Medications at Time of Discharge hydrocodone-aceta minophen (NORCO) 10-325 MG tablet Take 1 tablet by mouth every 6 (six) hours as needed for Pain. 8 tablet 11/03/2018 11/05/2018 documented as of this encounter Plan of Treatment Not on file documented as of this encounter Procedures Procedure Name Priority Date/Time Associated Diagnosis Comments CT SHOULDER RT WO CON Routine 11/04/2018 3:44 PM CDT Humeral head fracture, right, closed, initial encounter documented in this encounter Results * CT SHOULDER RT [...] By: Carmelo Coleman MD, 11/06/2018 10:15 AM us Jessica Hill RADIO PROGRAM CHECKER-BC CT Final Resu lt documented in this encounter Visit Diagnoses Diagnosis Humeral head fracture, right, closed, initial encounter documented in this encounter Care Teams Flight Test Supervisor Relationship Specialty Start Date End Date Jasson Cueva MD [address] [place] [phone] PCP - General FAMILY PRACTICE 11/03/18 documented as of this encounter
--- OUTSIDE RECORDS SUMMARY | 2024-03-19 18:42 | XMS_ITS | Encounter Summary ---
Author Organization [facility] Address [address] [place] [address]. [place], [place] [address] [place] [address] Care Team Providers Care Aircraft Restorer Name Role Phone Jasson Cueva MD Primary Care Provider [phone] Reason for Referral * Surgical (Routine) - Closed Specialty Diagnoses / Procedures Referred By Jayce coronado Referred To Contact SURGERY Diagnoses SX Procedures Case request operating room: ARTHROPLASTY SHOULDER TOTAL REVERSENate notified SX Moises Christianson MD [address] [place] [address] Phone: tel: fax: Referral ID Status Reason Start Date Expiration Date Visits Re quested Visits Authorized [id number] Closed 11/05/2018 12/07/2019 1 1 Encounter Details Date Type Department Care Team (Late st Contact Info) Description 11/05/2018 Prep for Procedure [facility] [address] [place] [address], [address] [place] [address] Moises Christianson MD [address] [place] [address] Social History Tobacco Use Types Packs/Day Years Used Date Smoking Tobacco: Every Day Cigarettes Smokeless Tobacco: Never Alcohol Use Standard Drinks/Week Comments Yes 0 (1 standard drink = 0.6 oz pur e alcohol) Comments No Sex and Gender Information Value Date Recorded Sex Assigned at Not on file Legal 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 SERVICE DELIVERY MANAGER Gender Identity Not on file Sexual Orientation Not on file documented as of this encounter Plan of Treatment Scheduled Orders Name Type Priority Associated Diagnoses Orde r Schedule Case request operating room: ARTHROPLASTY SHOULDER TOTAL REVERSENate notified Case Request Routine Once for 1 Occurrences starting 11/05/2018 until 11/05/2018 documented as of this encounter Visit Diagnoses Not on filedocumented in this encounter Care Teams Aircraft Restorer Relationship Specialty Start Date End Date Jasson Cueva MD [address] [place] [phone] PCP - General FAMILY PRACTICE 11/03/18 documented as of this encounter
--- OUTSIDE RECORDS SUMMARY | 2024-03-19 18:42 | XMS_ITS | Encounter Summary ---
Author Organization [facility] Address [address] [place] [address]. [place], [place] [address] [place] [address] Care Team Providers Care Copy Preparer Name Role Phone Unavailable Primary Care Provider Unavailabl e Encounter Details Date Type Department Care Team (Late st Contact Info) Description 07/08/2015 Abstract [facility] [address] [place] [address] Moises Christianson MD [address] [place] [address] Social History Tobacco Use Types Packs/Day Years Used Date Smoking Tobacco: Never Assessed Comments Unknown Sex and Gender Information Value Date Recorded Sex Assigned at Not on file Legal 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 ORDER TAKER Gender Identity Not on file Sexual Orientation Not on file documented as of this encounter Plan of Treatment Not on file documented as of this encounter Visit Diagnoses Diagnosis Closed displaced comminuted fracture of left patella Closed fracture of patella documented in this encounter
--- OUTSIDE RECORDS SUMMARY | 2024-03-19 18:42 | XMS_ITS | Encounter Summary ---
Author Organization [facility] Address [address] [place] [address]. [place], [place] [address] [place] [address] Care Team Providers Care Box Blank Machine Feeder Name Role Phone Unavailable Primary Care Provider Unavailabl e Encounter Details Date Type Department Care Team (Late st Contact Info) Description 09/08/[address] [facility] [address] [place] [address] Moises Christianson MD [address] [place] [address] Social History Tobacco Use Types Packs/Day Years Used Date Smoking Tobacco: Never Assessed Comments Unknown Sex and Gender Information Value Date Recorded Sex Assigned at Not on file Legal 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 DEPUTY Gender Identity Not on file Sexual Orientation Not on file documented as of this encounter Plan of Treatment Not on file documented as of this encounter Visit Diagnoses Diagnosis Encounter for other specified surgical aftercare documented in this encounter
--- OUTSIDE RECORDS SUMMARY | 2024-03-19 18:42 | XMS_ITS | Encounter Summary ---
Author Organization [facility] Address [address] [place] [address]. 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
--- OUTSIDE RECORDS SUMMARY | 2024-03-19 18:42 | XMS_ITS | Encounter Summary ---
Author Organization [facility] Address [address] [place] [address]. [place], [place] [address] [place] [address] Care Team Providers Care Structured Cabling Technician Name Role Phone Unavailable Primary Care Provider Unavailabl e Encounter Details Date Type Department Care Team (Late st Contact Info) Description 07/23/2015 Abstract [facility] [address] [place] [address] Moises Christianson MD [address] [place] [address] Social History Tobacco Use Types Packs/Day Years Used Date Smoking Tobacco: Never Assessed Comments Unknown Sex and Gender Information Value Date Recorded Sex Assigned at Not on file Legal 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
--- OUTSIDE RECORDS SUMMARY | 2024-03-19 18:42 | XMS_ITS | Encounter Summary ---
Author Organization [facility] Address [address] [place] [address]. 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
--- OUTSIDE RECORDS SUMMARY | 2024-03-19 18:42 | XMS_ITS | Encounter Summary ---
Author Organization [facility] Address [address] [place] [address]. [place], [place] [address] [place] [address] Care Team Providers Care Wood Veneer Taper Name Role Phone Unavailable Primary Care Provider Unavailabl e Encounter Details Date Type Department Care Team (Late st Contact Info) Description 10/07/[address] [place] [address] [place] [address] Jasson Cueva MD [address] [place] [phone] Social History Tobacco Use Types Packs/Day Years Used Date Smoking Tobacco: Never Assessed Comments Unknown Sex and Gender Information Value Date Recorded Sex Assigned at Not on file Legal 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 CONE EXAMINER Gender Identity Not on file Sexual Orientation Not on file documented as of this encounter Plan of Treatment Not on file documented as of this encounter Visit Diagnoses Diagnosis Abdominal pain Abdominal pain, unspecified site documented in this encounter
--- OUTSIDE RECORDS SUMMARY | 2024-03-19 18:42 | XMS_ITS | Encounter Summary ---
Author Organization [facility] Address [address] [place] [address]. 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 Postoperative Diagnosis: Left patella fracture. Procedure: ORIF, left patella. SURGEON: Moises Christianson III, MD Anesthesia: General. Indication: Alayna Waite is a 64-year-old female who fell, suffering a transverse patella fracture with displacement. She presents for the above procedure after reviewing risks and benefits. Description of Procedure: After regional block was performed in the holding area by the anesthesiologist upon my request, anticipating severe postoperative pain, the patient was taken to the operating room where she was positioned in a supine fashion and general anesthesia administered. Antibiotics given intravenously, and a tourniquet applied to the left proximal thigh. The left lower extremity was prepped and draped in the usual sterile fashion. An Esmarch wrap was used to exsanguinate the left lower extremity. Tourniquet inflated to 300 mmHg. A midline incision was made incising the paratenon exposing the fracture. The wound was copiously irrigated and soft tissue removed from the fracture site. Minimal comminution was appreciated. Reduction clamps were used to reduce the fracture and two 1.6 mm K-wire subsequently inserted from proximal to distal. A 14-gauge Angiocath was then inserted under fluoroscopic visualization posterior to the K-wires and a 20-gauge stainless wire passed through the Angiocath. This was repeated superiorly and a figure-eight tension band construct was achieved. The wire was tightened and permanent C-arm views were obtained. Laterally demonstrating good positioning of the pins and good reduction of the fracture. The pins were then bent and cut off and tamped down into the soft tissue. The 20-gauge tension band wire was also cut off and tamped down into the bone to make it less prominent. Permanent C-arm views were obtained in the AP view demonstrating good reduction and good hardware positioning. The wounds were copiously irrigated and the paratenon approximated using 2-0 Vicryl. #1 Vicryl had been used to repair the medial and lateral retinaculum prior to closure of the paratenon. 2-0 Vicryl was used to close subcutaneous tissue, and skin vitor completed the skin closure. The tourniquet was released at 24 minutes and this was prior to wound closure. Electrocautery was used to obtain hemostasis prior to wound closure. After wound closure, sterile dressings were applied and overwrapped with Webril, the drapes then withdrawn, and an Laith wrap used to overwrap the dressings. General anesthesia was discontinued. The patient was transferred to her stretcher, then to the PACU in good condition. /[facility] [id number] A A [id number] cc: MD Moises Mccann MD Bruce F. Weber, MD /[facility] [id number] E-Signed By A Moises Christianson MD 07/12/2015 01:17 P A [id number] cc: MD Moises Mccann MD Bruce F. Weber, MD documented in this encounter Plan of Treatment Not on file documented as of this encounter Visit Diagnoses Not on filedocumented in this encounter
--- OUTSIDE RECORDS SUMMARY | 2024-03-19 18:42 | XMS_ITS | Encounter Summary ---
Author Organization [facility] Address [address] [place] [address]. [place] [address] [place] [address] Care Team Providers Care French Tutor Name Role Phone Unavailable Primary Care Provider Unavailabl e Encounter Details Date Type Department Care Team (Late st Contact Info) Description 01/30/2014 Abstract [facility] [address] [place] [address] Social History Tobacco Use Types Packs/Day Years Used Date Smoking Tobacco: Never Assessed Comments Unknown Sex and Gender Information Value Date Recorded Sex Assigned at Not on file Legal 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 RECONSIGNMENT CLERK Gender Identity Not on file Sexual Orientation Not on file documented as of this encounter Plan of Treatment Not on file documented as of this encounter Visit Diagnoses Diagnosis Major depressive disorder, recurrent episode, severe ([facility]) Major depressive disorder, recurrent episode, severe, without mention of psychotic behavior documented in this encounter
--- OUTSIDE RECORDS SUMMARY | 2024-03-19 18:42 | XMS_ITS | Encounter Summary ---
Author Organization [facility] Address [address] [place] [address]. [place], [place] [address] [place] [address] Care Team Providers Care Residential Insurance Inspector Name Role Phone Jasson Cueva MD Primary Care Provider Encounter Details Date Type Department Care Team (Late st Contact Info) Description 11/05/2018 12:03 PM CDT - 11/05/2018 11:59 PM T Hospital Encounter [facility] [address] [place] [id number] [place], [facility] [address] [place] [address] Discharge Disposition: Home or Self Care (Routine Discharge) Social History Tobacco Use Types Packs/Day Years Used Date Smoking Tobacco: Every Day Cigarettes Smokeless Tobacco: Never Alcohol Use Standard Drinks/Week Comments Yes 0 (1 standard drink = 0.6 oz pur e alcohol) Comments No Sex and Gender Information Value Date Recorded Sex Assigned at Not on file Legal 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 [facility] ?[address] [place], [place] ??[address] ? Test Date: ?2018-11-05 Pat Name: ? ALAYNACRUZ WAITE ?Department: ? Room: ? Gender: ? Female ? Preschool Aide: ?? DELMI : ?1950 ? Requested By: [place] Order Number: [id number] ? Reading MD: ?? Mark Vazquez ? Measurements Intervals ?[place] ? Rate: ? 82 ? P: ?34 [place]: ? 120 ?QRS: ?-35 QRSD: ? 92 ? T: ?66 QT: ? 379 ? QTc: ?444 ? Interpretive Statements SINUS RHYTHM INFERIOR MYOCARDIAL INFARCTION [40+ ms Q WAVE AND/OR ST/T ABNORMALITY IN II/aVF], PROBABLY OLD Procedure Note Mark Vazquez MD - 11/05/[address] [place] [address] Test Date: 2018-11-05 Pat Name: ALAYNA WAITE Department: Room: Gender: Female Preschool Aide: DELMI : 1950 Requested By: [place]JA HILL Order Number: [id number] Reading MD: Mark Vazquez Measurements Intervals [place] Rate: 82 P: 34 [place]: 120 QRS: -35 QRSD: 92 T: 66 QT: 379 QTc: 444 Interpretive Statements SINUS RHYTHM INFERIOR MYOCARDIAL INFARCTION [40+ ms Q WAVE AND/OR ST/T ABNORMALITY IN II/aVF], PROBABLY OLD us [place] STITCHING MACHINE SETTER-BC ECG ORDERABLES Final Resu lt [facility] documented in this encounter Visit Diagnoses Diagnosis Closed fracture of proximal end of right humerus- Primary documented in this encounter Care Teams Residential Insurance Inspector Relationship Specialty Start Date End Date Jasson Cueva MD [address] [place] [phone] PCP - General FAMILY PRACTICE 11/03/18 documented as of this encounter
--- OUTSIDE RECORDS SUMMARY | 2024-03-19 18:43 | XMS_ITS | Encounter Summary ---
Author Organization [facility] Address [address] [place] [address]. [place], [place] [address] [place] [address] Care Team Providers Care Planning Technician Name Role Phone Unavailable Primary Care Provider Unavailabl e Encounter Details Date Type Department Care Team (Late st Contact Info) Description 08/03/[address] [facility] [place] [address] Jasson Cueva MD [address] [place] [phone] Social History Tobacco Use Types Packs/Day Years Used Date Smoking Tobacco: Never Assessed Comments Unknown Sex and Gender Information Value Date Recorded Sex Assigned at Not on file Legal 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 CERTIFIED NURSE AIDE Gender Identity Not on file Sexual Orientation Not on file documented as of this encounter Plan of Treatment Not on file documented as of this encounter Visit Diagnoses Diagnosis Gastric ulcer Gastric ulcer, unspecified as acute or chronic, without mention of hemorrhage, perforation, or obstruction documented in this encounter
--- OUTSIDE RECORDS SUMMARY | 2024-03-19 18:43 | XMS_ITS | Encounter Summary ---
Author Organization [facility] Address [address] [place] [address]. [place], [place] [address] [place] [address] Care Team Providers Care Mac Developer Name Role Phone Unavailable Primary Care Provider Unavailabl e Encounter Details Date Type Department Care Team (Late st Contact Info) Description 10/12/1998 Abstract [facility] [address] [place] [address] , Generic Conversion, Social History Tobacco Use Types Packs/Day Years Used Date Smoking Tobacco: Never Assessed Comments Unknown Sex and Gender Information Value Date Recorded Sex Assigned at Not on file Legal 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 CORNER BLOCK CUTTER Gender Identity Not on file Sexual Orientation Not on file documented as of this encounter Plan of Treatment Not on file documented as of this encounter Visit Diagnoses Not on filedocumented in this encounter
--- OUTSIDE RECORDS SUMMARY | 2024-03-19 18:43 | XMS_ITS | Encounter Summary ---
Author Organization [facility] Address [address] [place] [address]. 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
--- OUTSIDE RECORDS SUMMARY | 2024-03-19 18:43 | XMS_ITS | Encounter Summary ---
Author Organization [facility] Address [address] [place] [address]. [place], [place] [address] [place] [address] Care Team Providers Care Maintenance Mechanic Engine Name Role Phone Unavailable Primary Care Provider Unavailabl e Encounter Details Date Type Department Care Team (Late st Contact Info) Description 04/18/2009 Abstract [facility] [address] [place] [address] [place] [phone] Social History Tobacco Use Types Packs/Day Years Used Date Smoking Tobacco: Never Assessed Comments Unknown Sex and Gender Information Value Date Recorded Sex Assigned at Not on file Legal 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 TIRE ADJUSTER Gender Identity Not on file Sexual Orientation Not on file documented as of this encounter Plan of Treatment Not on file documented as of this encounter Visit Diagnoses Diagnosis Dehydration documented in this encounter
--- OUTSIDE RECORDS SUMMARY | 2024-03-19 18:43 | XMS_ITS | Encounter Summary ---
Author Organization [facility] Address [address] [place] [address]. [place], [place] [address] [place] [address] Care Team Providers Care Oil Tester Name Role Phone Unavailable Primary Care Provider Unavailabl e Encounter Details Date Type Department Care Team (Late st Contact Info) Description 12/24/1998 Abstract [facility] [address] [place] [address] , Generic Conversion, Social History Tobacco Use Types Packs/Day Years Used Date Smoking Tobacco: Never Assessed Comments Unknown Sex and Gender Information Value Date Recorded Sex Assigned at Not on file Legal 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 BREAD BAKER Gender Identity Not on file Sexual Orientation Not on file documented as of this encounter Plan of Treatment Not on file documented as of this encounter Visit Diagnoses Not on filedocumented in this encounter
--- OUTSIDE RECORDS SUMMARY | 2024-03-19 18:43 | XMS_ITS | Encounter Summary ---
Author Organization [facility] Address [address] [place] [address]. [place], [place] [address] [place] [address] Care Team Providers Care Coconut Boiler Name Role Phone Unavailable Primary Care Provider Unavailabl e Encounter Details Date Type Department Care Team (Late st Contact Info) Description 05/08/[address] [facility] [place] [address] Jasson Cueva MD [address] [place] [phone] Social History Tobacco Use Types Packs/Day Years Used Date Smoking Tobacco: Never Assessed Comments Unknown Sex and Gender Information Value Date Recorded Sex Assigned at Not on file Legal 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 COOKER CASING Gender Identity Not on file Sexual Orientation Not on file documented as of this encounter Plan of Treatment Not on file documented as of this encounter Visit Diagnoses Diagnosis Nausea with vomiting documented in this encounter
--- OUTSIDE RECORDS SUMMARY | 2024-03-19 18:43 | XMS_ITS | Encounter Summary ---
Author Organization [facility] Address [address] [place] [address]. 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
--- OUTSIDE RECORDS SUMMARY | 2024-03-19 18:43 | XMS_ITS | Encounter Summary ---
Author Organization [facility] Address [address] [place] [address]. [place], [place] [address] [place] [address] Care Team Providers Care Building Construction Estimator Name Role Phone Unavailable Primary Care Provider Unavailabl e Encounter Details Date Type Department Care Team (Late st Contact Info) Description 03/22/2009 Abstract [facility] [place] [address] Jasson Cueva MD [address] [place] [phone] Social History Tobacco Use Types Packs/Day Years Used Date Smoking Tobacco: Never Assessed Comments Unknown Sex and Gender Information Value Date Recorded Sex Assigned at Not on file Legal 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
--- OUTSIDE RECORDS SUMMARY | 2024-03-19 18:43 | XMS_ITS | Encounter Summary ---
Author Organization [facility] Address [address] [place] [address]. [place], [place] [address] [place] [address] Care Team Providers Care Cash Applications Clerk Name Role Phone Unavailable Primary Care Provider Unavailabl e Encounter Details Date Type Department Care Team (Late st Contact Info) Description 04/08/[address] 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
--- OUTSIDE RECORDS SUMMARY | 2024-03-19 18:43 | XMS_ITS | Encounter Summary ---
Author Organization [facility] Address [address] [place] [address]. [place], [place] [address] [place] [address] Care Team Providers Care Jewel Diameter Gauger Name Role Phone Unavailable Primary Care Provider Unavailabl e Encounter Details Date Type Department Care Team (Late st Contact Info) Description 07/25/2005 Abstract [facility] [address] [facility] [place] [address] Zach Muller MD [address] [place] [id number] Social History Tobacco Use Types Packs/Day Years Used Date Smoking Tobacco: Never Assessed Comments Unknown Sex and Gender Information Value Date Recorded Sex Assigned at Not on file Legal 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 SUPPORT CLERK Gender Identity Not on file Sexual Orientation Not on file documented as of this encounter Plan of Treatment Not on file documented as of this encounter Visit Diagnoses Not on filedocumented in this encounter
--- OUTSIDE RECORDS SUMMARY | 2024-03-19 18:43 | XMS_ITS | Encounter Summary ---
Author Organization [facility] Address [address] [place] [address]. [place], [place] [address] [place] [address] Care Team Providers Care Food And Beverage Order Clerk Name Role Phone Unavailable Primary Care Provider Unavailabl e Encounter Details Date Type Department Care Team (Late st Contact Info) Description 05/24/[address] [place] [address] Jasson Cueva MD [address] [place] [phone] Social History Tobacco Use Types Packs/Day Years Used Date Smoking Tobacco: Never Assessed Comments Unknown Sex and Gender Information Value Date Recorded Sex Assigned at Not on file Legal 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 EXECUTIVE COORDINATOR Gender Identity Not on file Sexual Orientation Not on file documented as of this encounter Plan of Treatment Not on file documented as of this encounter Visit Diagnoses Diagnosis Weight loss Loss of weight documented in this encounter
--- OUTSIDE RECORDS SUMMARY | 2024-03-19 18:43 | XMS_ITS | Encounter Summary ---
Author Organization [facility] Address [address] [place] [address]. [place], [place] [address] [place] [address] Care Team Providers Care Bi Technical Lead Name Role Phone Unavailable Primary Care Provider Unavailabl e Encounter Details Date Type Department Care Team (Late st Contact Info) Description 09/17/1998 Abstract [facility] [address] [place] [address] , Generic Conversion, Social History Tobacco Use Types Packs/Day Years Used Date Smoking Tobacco: Never Assessed Comments Unknown Sex and Gender Information Value Date Recorded Sex Assigned at Not on file Legal 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 OYSTER SHIPPER Gender Identity Not on file Sexual Orientation Not on file documented as of this encounter Plan of Treatment Not on file documented as of this encounter Visit Diagnoses Not on filedocumented in this encounter
--- OUTSIDE RECORDS SUMMARY | 2024-03-19 18:43 | XMS_ITS | Encounter Summary ---
Author Organization [facility] Address [address] [place] [address]. [place], [place] [address] [place] [address] Care Team Providers Care Burner Tender Name Role Phone Unavailable Primary Care Provider Unavailabl e Encounter Details Date Type Department Care Team (Late st Contact Info) Description 04/05/2009 Abstract [facility] [address] [place] [place] [address] Manny Alcala MD [address] [place] [address] Social History Tobacco Use Types Packs/Day Years Used Date Smoking Tobacco: Never Assessed Comments Unknown Sex and Gender Information Value Date Recorded Sex Assigned at Not on file Legal 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 SENIOR ASSET MANAGER Gender Identity Not on file Sexual Orientation Not on file documented as of this encounter Plan of Treatment Not on file documented as of this encounter Visit Diagnoses Diagnosis Vomiting alone documented in this encounter
--- OUTSIDE RECORDS SUMMARY | 2024-03-19 18:43 | XMS_ITS | Encounter Summary ---
Author Organization [facility] Address [address] [place] [address]. [place], [place] [address] [place] [address] Care Team Providers Care Solar Sales Associate Name Role Phone Unavailable Primary Care Provider Unavailabl e Encounter Details Date Type Department Care Team (Late st Contact Info) Description 04/30/[address] [facility] [address] [place] [address] Jasson Cueva MD [address] [place] [phone] Social History Tobacco Use Types Packs/Day Years Used Date Smoking Tobacco: Never Assessed Comments Unknown Sex and Gender Information Value Date Recorded Sex Assigned at Not on file Legal 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 DATA WAREHOUSING SPECIALIST Gender Identity Not on file Sexual Orientation Not on file documented as of this encounter Plan of Treatment Not on file documented as of this encounter Visit Diagnoses Diagnosis Brachial neuritis Brachial neuritis or radiculitis nos documented in this encounter
--- OUTSIDE RECORDS SUMMARY | 2024-03-19 18:43 | XMS_ITS | Encounter Summary ---
Author Organization [facility] Address [address] [place] [address]. [place], [place] [address] [place] [address] Care Team Providers Care Computer Systems Software Architect Name Role Phone Unavailable Primary Care Provider Unavailabl e Encounter Details Date Type Department Care Team (Late st Contact Info) Description 01/10/2014 Emergency [facility] Emergency [address] [place] [address] Jeanette Silva MD [address] [place] [address] Social History Tobacco Use Types Packs/Day Years Used Date Smoking Tobacco: Never Assessed Comments Unknown Sex and Gender Information Value Date Recorded Sex Assigned at Not on file Legal 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 SCHOOL AGE TEACHER Gender Identity Not on file Sexual Orientation Not on file documented as of this encounter Plan of Treatment Not on file documented as of this encounter Visit Diagnoses Diagnosis Major depressive disorder, single episode Major depressive disorder, single episode, unspecified documented in this encounter
--- OUTSIDE RECORDS SUMMARY | 2024-03-19 18:43 | XMS_ITS | Encounter Summary ---
Author Organization [facility] Address [address] [place] [address]. [place], [place] [address] [place] [address] Care Team Providers Care Tapper Bit Name Role Phone Unavailable Primary Care Provider Unavailabl e Encounter Details Date Type Department Care Team (Late st Contact Info) Description 04/13/2009 Abstract [facility] [address] [place] [address] Timothy Rivera MD [address] [place] [address] Social History Tobacco Use Types Packs/Day Years Used Date Smoking Tobacco: Never Assessed Comments Unknown Sex and Gender Information Value Date Recorded Sex Assigned at Not on file Legal 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 SATELLITE MANAGER Gender Identity Not on file Sexual Orientation Not on file documented as of this encounter Plan of Treatment Not on file documented as of this encounter Visit Diagnoses Diagnosis Aftercare for healing traumatic fracture of hip documented in this encounter
--- OUTSIDE RECORDS SUMMARY | 2024-03-19 18:44 | XMS_ITS | Encounter Summary ---
Author Organization [facility] Address [address] [place] [address]. [place] [address] [place] [address] Care Team Providers Care Supervisor Gear Repair Name Role Phone Unavailable Primary Care Provider Unavailabl e Encounter Details Date Type Department Care Team (Late st Contact Info) Description 12/03/1997 Abstract [facility] [address] [place] [address] , Generic Conversion, Social History Tobacco Use Types Packs/Day Years Used Date Smoking Tobacco: Never Assessed Comments Unknown Sex and Gender Information Value Date Recorded Sex Assigned at Not on file Legal 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 POTATO GRADER Gender Identity Not on file Sexual Orientation Not on file documented as of this encounter Plan of Treatment Not on file documented as of this encounter Visit Diagnoses Not on filedocumented in this encounter
--- OUTSIDE RECORDS SUMMARY | 2024-03-19 18:44 | XMS_ITS | Encounter Summary ---
Author Organization [facility] Address [address] [place] [address]. [place] [address] [place] [address] Care Team Providers Care Clinical Resource Manager Name Role Phone Unavailable Primary Care Provider Unavailabl e Encounter Details Date Type Department Care Team (Late st Contact Info) Description 12/02/1993 Abstract [facility] [address] [place] [address] , Generic Conversion, Social History Tobacco Use Types Packs/Day Years Used Date Smoking Tobacco: Never Assessed Comments Unknown Sex and Gender Information Value Date Recorded Sex Assigned at Not on file Legal 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 UMBRELLA SUPERVISOR Gender Identity Not on file Sexual Orientation Not on file documented as of this encounter Plan of Treatment Not on file documented as of this encounter Visit Diagnoses Not on filedocumented in this encounter
--- OUTSIDE RECORDS SUMMARY | 2024-03-19 18:44 | XMS_ITS | Encounter Summary ---
Author Organization [facility] Address [address] [place] [address]. [place], [place] [address] [place] [address] Care Team Providers Care Manager Interventional Name Role Phone Unavailable Primary Care Provider Unavailabl e Encounter Details Date Type Department Care Team (Late st Contact Info) Description 09/04/1997 Abstract [facility] [address] [place] [address] , Generic Conversion, Social History Tobacco Use Types Packs/Day Years Used Date Smoking Tobacco: Never Assessed Comments Unknown Sex and Gender Information Value Date Recorded Sex Assigned at Not on file Legal 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 GLASS WASHER AND CARRIER Gender Identity Not on file Sexual Orientation Not on file documented as of this encounter Plan of Treatment Not on file documented as of this encounter Visit Diagnoses Not on filedocumented in this encounter
--- OUTSIDE RECORDS SUMMARY | 2024-03-19 18:44 | XMS_ITS | Encounter Summary ---
Author Organization [facility] Address [address] [place] [address]. [place] [address] [place] [address] Care Team Providers Care Head Cashier Name Role Phone Unavailable Primary Care Provider Unavailabl e Encounter Details Date Type Department Care Team (Late st Contact Info) Description 04/08/1991 Abstract [facility] [address] [place] [address] , Generic Conversion, Social History Tobacco Use Types Packs/Day Years Used Date Smoking Tobacco: Never Assessed Comments Unknown Sex and Gender Information Value Date Recorded Sex Assigned at Not on file Legal 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 CHAIN CARRIER Gender Identity Not on file Sexual Orientation Not on file documented as of this encounter Plan of Treatment Not on file documented as of this encounter Visit Diagnoses Not on filedocumented in this encounter
--- OUTSIDE RECORDS SUMMARY | 2024-03-19 18:44 | XMS_ITS | Encounter Summary ---
Author Organization [facility] Address [address] [place] [address]. [place] [address] [place] [address] Care Team Providers Care Neck Fitter Name Role Phone Unavailable Primary Care Provider Unavailabl e Encounter Details Date Type Department Care Team (Late st Contact Info) Description 07/30/1994 Abstract [facility] [address] [place] [address] , Generic Conversion, Social History Tobacco Use Types Packs/Day Years Used Date Smoking Tobacco: Never Assessed Comments Unknown Sex and Gender Information Value Date Recorded Sex Assigned at Not on file Legal 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 TRAVEL COUNSELOR Gender Identity Not on file Sexual Orientation Not on file documented as of this encounter Plan of Treatment Not on file documented as of this encounter Visit Diagnoses Not on filedocumented in this encounter
--- OUTSIDE RECORDS SUMMARY | 2024-03-19 18:44 | XMS_ITS | Encounter Summary ---
Author Organization [facility] Address [address] [place] [address]. [place] [address] [place] [address] Care Team Providers Care Car Salesperson Name Role Phone Unavailable Primary Care Provider Unavailabl e Encounter Details Date Type Department Care Team (Late st Contact Info) Description 11/18/1992 Abstract [facility] [address] [place] [address] , Generic Conversion, Social History Tobacco Use Types Packs/Day Years Used Date Smoking Tobacco: Never Assessed Comments Unknown Sex and Gender Information Value Date Recorded Sex Assigned at Not on file Legal 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 AVIATION TECHNICAL SYSTEMS SPECIALIST Gender Identity Not on file Sexual Orientation Not on file documented as of this encounter Plan of Treatment Not on file documented as of this encounter Visit Diagnoses Not on filedocumented in this encounter
--- OUTSIDE RECORDS SUMMARY | 2024-03-19 18:44 | XMS_ITS | Encounter Summary ---
Author Organization [facility] Address [address] [place] [address]. [place] [address] [place] [address] Care Team Providers Care Typists Supervisor Name Role Phone Unavailable Primary Care Provider Unavailabl e Encounter Details Date Type Department Care Team (Late st Contact Info) Description 09/17/1990 Abstract [facility] [address] [place] [address] , Generic Conversion, Social History Tobacco Use Types Packs/Day Years Used Date Smoking Tobacco: Never Assessed Comments Unknown Sex and Gender Information Value Date Recorded Sex Assigned at Not on file Legal 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 FRONT DESK MANAGER Gender Identity Not on file Sexual Orientation Not on file documented as of this encounter Plan of Treatment Not on file documented as of this encounter Visit Diagnoses Not on filedocumented in this encounter
--- OUTSIDE RECORDS SUMMARY | 2024-03-19 18:44 | XMS_ITS | Encounter Summary ---
Author Organization [facility] Address [address] [place] [address]. [place] [address] [place] [address] Care Team Providers Care Lead Assembler Name Role Phone Unavailable Primary Care Provider Unavailabl e Encounter Details Date Type Department Care Team (Late st Contact Info) Description 03/03/1993 Abstract [facility] [address] [place] [address] , Generic Conversion, Social History Tobacco Use Types Packs/Day Years Used Date Smoking Tobacco: Never Assessed Comments Unknown Sex and Gender Information Value Date Recorded Sex Assigned at Not on file Legal 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 DECKHAND CRAB BOAT Gender Identity Not on file Sexual Orientation Not on file documented as of this encounter Plan of Treatment Not on file documented as of this encounter Visit Diagnoses Not on filedocumented in this encounter
--- OUTSIDE RECORDS SUMMARY | 2024-03-19 18:44 | XMS_ITS | Encounter Summary ---
Author Organization [facility] Address [address] [place] [address]. [place] [address] [place] [address] Care Team Providers Care Neuropsychology Director Name Role Phone Unavailable Primary Care Provider Unavailabl e Encounter Details Date Type Department Care Team (Late st Contact Info) Description 06/04/1997 Abstract [facility] [address] [place] [address] , Generic Conversion, Social History Tobacco Use Types Packs/Day Years Used Date Smoking Tobacco: Never Assessed Comments Unknown Sex and Gender Information Value Date Recorded Sex Assigned at Not on file Legal 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 CARPET FINISHING SUPERVISOR Gender Identity Not on file Sexual Orientation Not on file documented as of this encounter Plan of Treatment Not on file documented as of this encounter Visit Diagnoses Not on filedocumented in this encounter
--- OUTSIDE RECORDS SUMMARY | 2024-03-19 18:44 | XMS_ITS | Encounter Summary ---
Author Organization [facility] Address [address] [place] [address]. [place] [address] [place] [address] Care Team Providers Care Armhole Raiser Lockstitch Name Role Phone Unavailable Primary Care Provider Unavailabl e Encounter Details Date Type Department Care Team (Late st Contact Info) Description 10/04/1995 Abstract [facility] [address] [place] [address] , Generic Conversion, Social History Tobacco Use Types Packs/Day Years Used Date Smoking Tobacco: Never Assessed Comments Unknown Sex and Gender Information Value Date Recorded Sex Assigned at Not on file Legal 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 UNIVERSITY INTERN Gender Identity Not on file Sexual Orientation Not on file documented as of this encounter Plan of Treatment Not on file documented as of this encounter Visit Diagnoses Not on filedocumented in this encounter
--- OUTSIDE RECORDS SUMMARY | 2024-03-19 18:44 | XMS_ITS | Encounter Summary ---
Author Organization [facility] Address [address] [place] [address]. [place] [address] [place] [address] Care Team Providers Care Pre Owned Sales Manager Name Role Phone Unavailable Primary Care Provider Unavailabl e Encounter Details Date Type Department Care Team (Late st Contact Info) Description 11/01/1995 Abstract [facility] [address] [place] [address] , Generic Conversion, Social History Tobacco Use Types Packs/Day Years Used Date Smoking Tobacco: Never Assessed Comments Unknown Sex and Gender Information Value Date Recorded Sex Assigned at Not on file Legal 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 SOFTWARE SYSTEMS ENGINEER Gender Identity Not on file Sexual Orientation Not on file documented as of this encounter Plan of Treatment Not on file documented as of this encounter Visit Diagnoses Not on filedocumented in this encounter
--- OUTSIDE RECORDS SUMMARY | 2024-03-19 18:44 | XMS_ITS | Encounter Summary ---
Author Organization [facility] Address [address] [place] [address]. [place] [address] [place] [address] Care Team Providers Care Jamb Cutter Name Role Phone Unavailable Primary Care Provider Unavailabl e Encounter Details Date Type Department Care Team (Late st Contact Info) Description 06/05/1996 Abstract [facility] [address] [place] [address] , Generic Conversion, Social History Tobacco Use Types Packs/Day Years Used Date Smoking Tobacco: Never Assessed Comments Unknown Sex and Gender Information Value Date Recorded Sex Assigned at Not on file Legal 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 INSTRUMENTATION INSTRUCTOR Gender Identity Not on file Sexual Orientation Not on file documented as of this encounter Plan of Treatment Not on file documented as of this encounter Visit Diagnoses Not on filedocumented in this encounter
--- OUTSIDE RECORDS SUMMARY | 2024-03-19 18:44 | XMS_ITS | Encounter Summary ---
Author Organization [facility] Address [address] [place] [address]. [place] [address] [place] [address] Care Team Providers Care Sales Support Technician Name Role Phone Unavailable Primary Care Provider Unavailabl e Encounter Details Date Type Department Care Team (Late st Contact Info) Description 01/06/1993 Abstract [facility] [address] [place] [address] , Generic Conversion, Social History Tobacco Use Types Packs/Day Years Used Date Smoking Tobacco: Never Assessed Comments Unknown Sex and Gender Information Value Date Recorded Sex Assigned at Not on file Legal 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 SAP ARIBA CONSULTANT Gender Identity Not on file Sexual Orientation Not on file documented as of this encounter Plan of Treatment Not on file documented as of this encounter Visit Diagnoses Not on filedocumented in this encounter
--- OUTSIDE RECORDS SUMMARY | 2024-03-19 18:44 | XMS_ITS | Encounter Summary ---
Author Organization [facility] Address [address] [place] [address]. [place] [address] [place] [address] Care Team Providers Care Highway Patrol Pilot Name Role Phone Unavailable Primary Care Provider Unavailabl e Encounter Details Date Type Department Care Team (Late st Contact Info) Description 06/02/1993 Abstract [facility] [address] [place] [address] , Generic Conversion, Social History Tobacco Use Types Packs/Day Years Used Date Smoking Tobacco: Never Assessed Comments Unknown Sex and Gender Information Value Date Recorded Sex Assigned at Not on file Legal 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 ELECTROMECHANICAL TECHNOLOGIST Gender Identity Not on file Sexual Orientation Not on file documented as of this encounter Plan of Treatment Not on file documented as of this encounter Visit Diagnoses Not on filedocumented in this encounter
--- OUTSIDE RECORDS SUMMARY | 2024-03-19 18:44 | XMS_ITS | Encounter Summary ---
Author Organization [facility] Address [address] [place] [address]. [place] [address] [place] [address] Care Team Providers Care Design Coordinator Name Role Phone Unavailable Primary Care Provider Unavailabl e Encounter Details Date Type Department Care Team (Late st Contact Info) Description 09/04/1991 Abstract [facility] [address] [place] [address] , Generic Conversion, Social History Tobacco Use Types Packs/Day Years Used Date Smoking Tobacco: Never Assessed Comments Unknown Sex and Gender Information Value Date Recorded Sex Assigned at Not on file Legal 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 MECHANICAL TECHNICAL SERVICE SPECIALIST Gender Identity Not on file Sexual Orientation Not on file documented as of this encounter Plan of Treatment Not on file documented as of this encounter Visit Diagnoses Not on filedocumented in this encounter
--- OUTSIDE RECORDS SUMMARY | 2024-03-19 18:44 | XMS_ITS | Encounter Summary ---
Author Organization [facility] Address [address] [place] [address]. [place] [address] [place] [address] Care Team Providers Care Osd Clerk Name Role Phone Unavailable Primary Care Provider Unavailabl e Encounter Details Date Type Department Care Team (Late st Contact Info) Description 02/02/1994 Abstract [facility] [address] [place] [address] , Generic Conversion, Social History Tobacco Use Types Packs/Day Years Used Date Smoking Tobacco: Never Assessed Comments Unknown Sex and Gender Information Value Date Recorded Sex Assigned at Not on file Legal 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 NAIL STICKER Gender Identity Not on file Sexual Orientation Not on file documented as of this encounter Plan of Treatment Not on file documented as of this encounter Visit Diagnoses Not on filedocumented in this encounter
--- OUTSIDE RECORDS SUMMARY | 2024-03-19 18:44 | XMS_ITS | Encounter Summary ---
Author Organization [facility] Address [address] [place] [address]. [place] [address] [place] [address] Care Team Providers Care Speech Language Assistant Name Role Phone Unavailable Primary Care Provider Unavailabl e Encounter Details Date Type Department Care Team (Late st Contact Info) Description 01/03/1996 Abstract [facility] [address] [place] [address] , Generic Conversion, Social History Tobacco Use Types Packs/Day Years Used Date Smoking Tobacco: Never Assessed Comments Unknown Sex and Gender Information Value Date Recorded Sex Assigned at Not on file Legal 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 ASSISTANT PROFESSOR OF RADIOLOGY Gender Identity Not on file Sexual Orientation Not on file documented as of this encounter Plan of Treatment Not on file documented as of this encounter Visit Diagnoses Not on filedocumented in this encounter
--- OUTSIDE RECORDS SUMMARY | 2024-03-19 18:44 | XMS_ITS | Encounter Summary ---
Author Organization [facility] Address [address] [place] [address]. [place] [address] [place] [address] Care Team Providers Care Budget Accountant Name Role Phone Unavailable Primary Care Provider Unavailabl e Encounter Details Date Type Department Care Team (Late st Contact Info) Description 09/08/1994 Abstract [facility] CONVERSION [address] [place] [address] , Generic Conversion, Social History Tobacco Use Types Packs/Day Years Used Date Smoking Tobacco: Never Assessed Comments Unknown Sex and Gender Information Value Date Recorded Sex Assigned at Not on file Legal 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 RIGGING HELPER Gender Identity Not on file Sexual Orientation Not on file documented as of this encounter Plan of Treatment Not on file documented as of this encounter Visit Diagnoses Not on filedocumented in this encounter
--- OUTSIDE RECORDS SUMMARY | 2024-03-19 18:44 | XMS_ITS | Encounter Summary ---
Author Organization [facility] Address [address] [place] [address]. [place], [place] [id number] [place] [id number] Care Team Providers Care Drawer In Name Role Phone Unavailable Primary Care Provider Unavailabl e Encounter Details Date Type Department Care Team (Late st Contact Info) Description 10/05/1996 Abstract [facility] CONVERSION [address] [place] [address] , Generic Conversion, Social History Tobacco Use Types Packs/Day Years Used Date Smoking Tobacco: Never Assessed Comments Unknown Sex and Gender Information Value Date Recorded Sex Assigned at Not on file Legal 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 CLINIC MD ASSOCIATE Gender Identity Not on file Sexual Orientation Not on file documented as of this encounter Plan of Treatment Not on file documented as of this encounter Visit Diagnoses Not on filedocumented in this encounter
--- OUTSIDE RECORDS SUMMARY | 2024-03-19 18:44 | XMS_ITS | Encounter Summary ---
Author Organization [facility] Address [address] [place] [address]. [place] [address] [place] [address] Care Team Providers Care Air Cargo Ground Crew Supervisor Name Role Phone Unavailable Primary Care Provider Unavailabl e Encounter Details Date Type Department Care Team (Late st Contact Info) Description 11/06/1996 Abstract [facility] CONVERSION [address] [place] [address] , Generic Conversion, Social History Tobacco Use Types Packs/Day Years Used Date Smoking Tobacco: Never Assessed Comments Unknown Sex and Gender Information Value Date Recorded Sex Assigned at Not on file Legal 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 COMPATIBILITY TEST ENGINEER Gender Identity Not on file Sexual Orientation Not on file documented as of this encounter Plan of Treatment Not on file documented as of this encounter Visit Diagnoses Not on filedocumented in this encounter
--- OUTSIDE RECORDS SUMMARY | 2024-03-19 19:02 | XMS_ITS | Encounter Summary ---
Author Organization [facility] Address [address] [place] [address] Phone Care Team Providers Care Personal Care Worker Name Role Phone Jasson Cueva MD Primary Care Provider [phone] Reason for Visit * Reason Onset Date Comments Care Management 12/22/2019 Hospital Dischar ge Follow Up Encounter Details Date Type Department Care Team ([facility] st Contact Info) Description 12/22/2019 Telephone [facility] [address] [place] [address] [place] [address] Nurse, [facility], [place] Care Management (Hospital Discharge Follow Up) Social History Tobacco Use Types Packs/Day Years Used Date Smoking Tobacco: Never Assessed PHQ-2 Answer Date Recorded Total Score - Questions 1-9 0 11/18 Comments Unknown Sex and Gender Information Value Date Recorded Sex Assigned at Not on file Legal Sex Female 10:51 AM CDT Gender Identity Not on file Sexual Orientation Not on file COVID-19 Exposure Response Date Recorded In the last month, have you been in contact with someone who was confirmed or suspected to have Coronavirus / COVID-19? No / Unsure 12/16/2019 1:59 PM CDT documented as of this encounter Miscellaneous Notes * Telephone Encounter - Cris Sutton RN - 12/22/2019 2:32 PM CDT Trisha was discharged from [facility] on 12/21/2019 to home. Antibiotics prescribedat discharge: LEVOFLOXACIN 500 mg by mouth daily x 7 days, and DOXYCYCLINE 100 mg by mouth twice a day x 7 days. No further labs ordered by ID, and patient can follow up with our office as needed. Consult date: 12/17/2019 (Brenda) Spoke with Trisha Dixon's son. Zack reports she is doing well at home. He confirmed he obtained the above oral medications and she has started taking them both. She does have mild complaints of nausea, but Zack states that has been a complaint prior to discharge. Discussed no further labs, and advised to call with any questions or concerns. Verbalized understanding and appreciation. By: CRIS SUTTON RN; 12/22/2019, 2:36 PM CDT documented in this encounter Plan of Treatment Not on file documented as of this encounter Visit Diagnoses Not on filedocumented in this encounter Additional Health Concerns Assessment Noted Time PHQ-9 Depression Total Score: 0 12/16/19 20 1:27 PM CDT documented as of this encounter Care Teams Personal Care Worker Relationship Specialty Start Date End Date Jasson Cueva MD [address] [place] [address] PCP - General Family Medicine 12/16/19 documented as of this encounter
--- OUTSIDE RECORDS SUMMARY | 2024-03-19 19:02 | XMS_ITS | Encounter Summary ---
Author Organization [facility] Care Team Providers Care Tire Layer Name Role Phone Jasson Cueva MD Primary Care Provider [phone] Encounter Details Date Type Department Care Team (Latest Contact Info) Description 12/16/2019 Travel Social History Tobacco Use Types Packs/Day [...] PM CDT documented as of this encounter Plan of Treatment Not on file documented as of this encounter Visit Diagnoses Not on filedocumented in this encounter Additional Health Concerns Assessment Noted Time PHQ-9 Depression Total Score: 0 12/16/19 20 1:27 PM CDT documented as of this encounter Care Teams Tire Layer Relationship Specialty Start Date End Date Jasson Cueva MD [address] [place] [address] PCP - General Family Medicine 12/16/19 documented as of this encounter
--- OUTSIDE RECORDS SUMMARY | 2024-03-19 19:02 | XMS_ITS | Clinical Summary ---
Author Organization [facility] Address [address] [place] [address] Phone Care Team Providers Care Crop Or Grain Farmer Name Role Phone Jasson Cueva MD Primary Care Provider [phone] Allergies No known active allergies Medications aspirin EC 81 MG Tablet Delayed Response Take 81 mg by mouth daily. Active amLODIPine (NORVASC) 2.5 MG Tablet Take 1 Tab by mouth daily. 90 Tab 3 12/22/2019 Active Active Problems Problem Noted Date Diagnosed Date UTI (urinary tract infection) 12/16/2019 MOIRA (acute kidney injury) 12/16/2019 Social History Tobacco Use Types Packs/Day Years [...] Sign Reading Time Taken Comments Blood Pressure 134/76 12/21/2019 12:00 PM CDT Pulse 68 12/21/2019 12:00 PM CDT Temperature 37 ??C (98.6 ??F) 12/21/2019 12: 00 PM CDT Respiratory Rate 18 12/21/2019 12:0 0 PM CDT Oxygen Saturation 97% 12/21/2019 12: 00 PM CDT Inhaled Oxygen Concentration - - Weight 64.3 kg (141 lb 12.8 oz) 12/16/2019 1:27 PM CDT Height 167.6 cm (5' 6 ) 12/16/2019 1:27 PM CDT Body Mass Index 22.89 12/16/2019 1:27 PM CDT Plan of Treatment Health Maintenance Due Date Last Done Comments DEXA Bone Density 1950 Hepatitis C Virus (HCV) Screening 1950 Colonoscopy 08/23/1996 Colorectal Cancer Screening 08/23/1996 Cologuard 08/23/2001 Immunochemical Fecal Occult Blood 08/23/2001 Mammogram 08/23/2001 Pneumococcal Immunization (5 0+ years) (1 of 1 - PCV) 08/23/2001 Zoster Immunization (1 of 2) 08/23/2001 Influenza Immunization (#1) 2023 SARS-COV-2 Immunization (1 - 2023-25 season) 2023 Respiratory Syncytial Virus (RSV) Immunization (Adult) (1 - 1-dose 75+ series) 08/23/2026 DTaP/Tdap/Td Immunization Discontinued 06/21/2014 TdaP Immunization Completed 06/21/2014 Hepatitis B Immunization Aged Out No longer eligible based on patient's age to complete this topic Meningococcal Immunization (ACWY) Aged Out No longer eligible based on patient's age to complete this topic Rotavirus Immunization Aged Out No lo nger eligible based on patient's age to complete this topic Insurance MEDICARE Advance Directives * Full Code (Latest Code Status on File) Date Activated Date Inactivated Comments 12/16/2019 2:39 PM 12/21/2019 8:28 PM CPR-Full Goldy atment: FULL ARREST: Attempt Resuscitation/CPR wit intubation and mechanical ventilation. PRE-ARREST: Use entire range of life support measures to stabilize the patient. Care Teams Crop Or Grain Farmer Relationship Specialty Start Date End Date Jasson Cueva MD [address] [place] [address] PCP - General Family Medicine 12/16/19
--- OUTSIDE RECORDS SUMMARY | 2024-03-19 19:02 | XMS_ITS | Encounter Summary ---
Author Organization [facility] Address [address] [place] [address] Phone Care Team Providers Care National Sales Director Name Role Phone Jasson Valdivia MD Primary Care Provider [phone] Reason for Visit * Auth/Cert Specialty Diagnoses / Procedures Referred By Contac t Referred To Contact Diagnoses MOIRA Referral ID Status Reason Start Date Expiration Date Visits Re quested Visits Authorized [id number] 1 1 Encounter Details Date Type Department Care Team (Latest Contact Info) Description 12/16/2019 1:27 PM CDT - 12/21/2019 6:28 PM CDT Hospital Encounter [facility] Medical Nursing [address] [place] [address] Lissette Saul MD [address] [place] [address] Albaro Arevalo MD [address] [address] Lefty Ley MD [address] [place] [address] Adrian Bueno MD [address] [place] [address] UTI (urinary tract infection) Discharge Disposition: Discharged to home or Selfcare Social History Tobacco Use Types Packs/Day Years Used Date Smoking Tobacco: Never Assessed PHQ-2 Answer Date Recorded Total Score - Questions 1-9 0 09/2 11/2019 Comments Unknown Sex and Gender Information Value [...] Mass Index 22.89 12/16/2019 1:27 PM CDT documented in this encounter Discharge Summaries * Albaro Arevalo MD - 12/21/2019 1:42 PM CDT DISCHARGE SUMMARY Name: Trisha Waite Age: 69 y.o. : 1950 Admission Date/Time: 12/16/2019 1:27 PM Discharge Date: 12/21/2019 Primary Care Physician: JASSON VALDIVIA MD Discharging Physician: ALBARO AREVALO MD Discharge Diagnoses: Active Hospital Problems Diagnosis Date Noted ??? UTI (urinary tract infection) 12/16/2019 ??? MOIRA (acute kidney injury) (HCC) 12/16/2019 Resolved Hospital Problems No resolved problems to display. HOSPITAL COURSE: Pt is a 69 y/o female with a PMH of??Depression, HTN, Ischemic Stroke and Displaced fx of proximal end of right humerus in 2019??who presented to the ED at [facility] in [place] for evaluation of weakness and fatigue since 9/27/20.?Pt??became more lethargic on yesterday??and was unable to move or speak, so her son??took her to the ED for further evaluation. ??While in the ED at [facility] in [place], pt had labs drawn and was found to have hypernatremia with a Sodium of??161. ??She had MOIRA with BUN of 161 and??Cr of??8.06.??Pt had lactic acid as high as 3.2.?She also had urinalysis suggestive of UTI with WBCs and bacteria. ??She was given IV Ceftriaxone.?She was also given 1 L bolus of NS and started on D5 0.45NS. Ingram catheter placed. ??Cultures taken.??CXR nl and no acute findings mentioned on EKG; pt was in sinus tachy with mention of findings suggestive of possible old inferior [place].??CT head was negative for any acute abnormalities.?Pt transferred over for further evaluation and management of MOIRA, Sepsis and hypernatremia. ??Pt did not require pressors. ??Labs repeated on arrival with slight improvement;??Na of 156, Potassium of 4.3, BUN of??137??and Cr of 5.7. ?Lactic acid now 2.7. Blood cultures at OSH??showing grown of gram pos??Rods. ??Consulted Nephrology and Infectious Disease. ??We Will continue with IVF and IV antibiotics and monitor sodium closely. ?? A/P ?? 1. Possible Sepsis,??Lactic acidosis,??GPR in blood cx could be contamination. Urine looks infected. UTI with GNR but final dx is not known to me. Ct with abx; improved. abx per ID. Repeated blood cultures with no growth so far. ?? 2. MOIRA on CKD 3 with significant azotemia but no clear signs of uremia : pt is making urine. ??Cr was originally 8.06??on presentation. It improved down to 2.1. It looks mainly dehydration with low urine sodium. Ct with IVF and adjust accordingly. Mild right hydro noted in right side but no obviouscause/urology evaluated and pt can have MRI for renal masses further evaluation but nothing urgent.She continue to improve with IVF. PT has atrophic left kidney. She has CKD 3 with baseline near 2. ?? 3. Hypernatremia: Pt with Na of??161??at OSH. ??It is now down to 147. probably need further work up as outpatient. ?? 4. HTN, H/o CVA in 2019: Pt with resulting memory problems per son. ??She is at baseline mental status. ??BP on lower side of normal at 97/63. ??Pt asymptomatic; BP seems to recover now. We will start her BP meds gradually. Discharge instructions per ID Levaquin 500 mg p.o. daily for 7 days Doxycycline 100 mg p.o. B.i.d. for 7 days Follow-up with Infectious Disease office as needed No laboratory studies from infectious disease standpoint Lab / Imaging Review: CBC: Lab Results Component Value Date WBC 8.11 12/21/2019 RBC 3.93 12/21/2019 HEMOGLOBIN 11.9 12/21/2019 HEMATOCRIT 37.7 12/21/2019 PLATELETCNT 143 12/21/2019 CMP: Lab Results Component Value Date SODIUM 147 (H) 12/21/2019 POTASSIUM 3.9 12/21/2019 CHLORIDE 115 (H) 12/21/2019 CO2VEN 25 12/21/2019 ANIONGAP 10.9 12/21/2019 GLUCOSE 103 12/21/2019 BUN 25 (H) 12/21/2019 CREATININE 2.10 (H) 12/21/2019 BCRATIO8 12 12/21/2019 TOTALPROTEIN 5.7 (L) 12/16/2019 ALBUMIN 2.7 (L) 12/21/2019 CALCIUM 8.4 (L) 12/21/2019 TBIL 0.4 12/16/2019 SGPTALT 25 12/16/2019 ALKALINEPHO 82 12/16/2019 GFRNA 23 12/21/2019 GFRA 28 (L) 12/21/2019 Discharge Instructions: Discharged Condition: improved Disposition: Home Diet: Regular Diet Activity: Activity As Tolerated Resuscitation Status at Discharge: Full Code DISCHARGE MEDICATION LIST: Discharge Medication List New doxycycline hyclate 100 MG Caps Commonly known as: VIBRAMYCIN 100 mg, Oral, 2 TIMES DAILY Start taking on: December 22, 2019 levoFLOXacin 500 MG Tabs Commonly known as: LEVAQUIN 500 mg, Oral, DAILY Start taking on: December 22, 2019 Changed amLODIPine 2.5 MG Tabs Commonly known as: NORVASC 2.5 mg, Oral, DAILY Start taking on: December 22, 2019 What changed: ?? medication strength ?? how much to take Continued aspirin EC 81 MG Tbec 81 mg, Oral, DAILY Stopped gabapentin 600 MG Tabs Commonly known as: NEURONTIN metoprolol tartrate 50 MG Tabs Commonly known as: LOPRESSOR 35 minutes spent on interview, examination, final orders, recommendations, and care coordination for this hospital discharge. Signed: ALBARO AREVALO MD, 12/21/2019, 1:42 PM CDT documented in this encounter Medications at Time of Discharge amLODIPine (NORVASC) 2.5 MG Tablet Take 1 Tab by mouth daily. 90 Tab 3 12/22/2019 aspirin EC 81 MG Tablet Delayed Response Take 81 mg by mouth daily. doxycycline hyclate (VIBRAMYCIN) 100 MG Capsule Take 1 Cap by mouth 2 times daily for 7 days. 14 Cap 12/22/2019 12/29/2019 levoFLOXacin (LEVAQUIN) 500 MG Tablet Take 1 Tab by mouth daily for 7 days. 7 Tab 12/22/2019 12/29/2019 documented as of this encounter Progress Notes * Brenda Oseguera APN, C.O.D. CLERK - 12/21/2019 12:48 PM CDT Trisha Waite is stable for discharge from Infectious Disease standpoint. Reviewed patient's chart today and patient is medically state for discharge. At this time the following discharge instructions have been given to case management nursing staff for discharge planning. Discharge instructions Levaquin 500 mg p.o. daily for 7 days Doxycycline 100 mg p.o. B.i.d. for 7 days Follow-up with Infectious Disease office as needed No laboratory studies from infectious disease standpoint By: BRENDA OSEGUERA APN, C.O.D. CLERK; 12/21/2019, 12:49 PM CDT Cosigned by Giovanny Corona MD at 12/13/2021 2:50 PM CDT * Alex Sarmiento MD - 12/21/2019 8:51 AM CDT Images from the original note were not included. Renal Progress Note COMPLAINT patient denies of any symptoms Last Ventilator settings: SpO2: 97 % ortions of this chart may have been created with voice recognition software. Occasional wrong-word or ???sound-alike?? substitutions may have occurred due to the inherent limitations of voice recognition software. Read the chart carefully and recognize, using context, where these substitutions have occurred. Pending Labs Order Current Status [place]/Lambda/Free Light Chains, [id number] In process Magnesium (Mg) In process Protein Electrophoresis, Serum DMH In process Renal Function Panel (RFP) In process Culture, Blood Preliminary result Culture, Blood Preliminary result ELECTROLYTES Recent Labs Units 12/20/19 0609 12/19/19 0612 SODIUM mmol/L 148* 150* POTASSIUM mmol/L 4.0 4.1 CHLORIDE mmol/L 118* 121* CO2VEN mmol/L 25 21 ANIONGAP mmol/L 9.0* 12.1 BUN mg/dL 37* 55* CREATININE mg/dL 2.40* 2.80* GFRA 22* 18* ALBUMIN g/dL 2.6* 2.6* ADJCA mg/dL 9.5 9.3 PHOSPHORUS mg/dL 3.1 2.8 CALCIUM mg/dL 8.4* 8.2* MAGNESIUM mg/dL 2.1 2.3 No results found for: PARAT Pending Labs Order Current Status [place]/Lambda/Free Light Chains, [id number] In process Magnesium (Mg) In process Protein Electrophoresis, Serum DMH In process Renal Function Panel (RFP) In process Culture, Blood Preliminary result Culture, Blood Preliminary result CBC Recent Labs Units 12/21/19 0747 WBC 10(3)/mcL 8.11 HEMOGLOBIN g/dL 11.9 HEMATOCRIT % 37.7 PLATELETCNT 10(3)/mcL 143 No Results for Requested Labs in Past 12 Months No results found for: FOLAT No results found for: [id number] No results found for: TSH No results found for: T4FREE No components found for: T3FREE No results found for: OCCULTBLOOD BONE Comments No Results for Requested Labs in Past 12 MonthsIONIZED CALCIUM No results found for: [id number] VIT D 25 OH. No results found for: [id number] VIT D, 1-25,DIHYDROXY No results found for: CAQT CALCIUM 24 HOURS PROTEINURIA comments No results found for: [id number] Lab Results Component Value Date UPCRO 1.77 12/19/2019 Lab Results Component Value Date PROTEINRNUR 1+ (A) 12/16/2019 Lab Results Component Value Date URINERBC 2+ (A) 12/16/2019 URINERBC 0-5 12/16/2019 Pending Labs Order Current Status [place]/Lambda/Free Light Chains, [id number] In process Magnesium (Mg) In process Protein Electrophoresis, Serum DMH In process Renal Function Panel (RFP) In process Culture, Blood Preliminary result Culture, Blood Preliminary result VASCULITIS/GAMMOPATHY comments No results found for: LATASHA No results found for: DBLSTRDNAANTI DNA. No results found for: S1HCHNBSNVC No results found for: [id number] No results found for: COMPLEMENTT, L3WLTMLBPSL, [id number] No results found for: ANCASC No results found for: ANCAIGG No results found for: ANCTTR No results found for: [id number] Meloperoxidase nl 0-19 No results found for: 7061970N PR3 i.e serine proteiase nl 0-19 No results found for: 1602237U Anti Gbm No results found for: PROTUC, PALBUMIN, PALPHA1, PATHINTERP, BETA, GAMMAGLOB SPEP/UPEP. No results found for: [id number] LIGHT CHAIN. No results found for: [id number] LIGHT CHAIN. No results found for: [id number]/LAMBDA FREE LIGHTCHAIN RATIO. No results found for: [id number] TESTING Pending Labs Order Current Status [place]/Lambda/Free Light Chains, [id number] In process Magnesium (Mg) In process Protein Electrophoresis, Serum DMH In process Renal Function Panel (RFP) In process Culture, Blood Preliminary result Culture, Blood Preliminary result RENAL ULTRA SOUND Results for orders placed or performed during the hospital encounter of 12/16/19 US RENAL COMPLETE Collection Time: 12/16/19 8:10 PM Narrative EXAMINATION: US RENAL COMPLETE HPI: 61-year-old female with acute renal failure. COMPARISON: None available. TECHNIQUE: Complete renal ultrasound performed evaluation of the bladder obtained. FINDINGS: RIGHT KIDNEY:Right kidney is normal in size measuring 11.7 x 5.7 x 6.6 cm. There are intrarenal calculi present. Mild hydronephrosis is demonstrated. LEFT KIDNEY:Not visualized. BLADDER: Decompressed by a Ingram catheter. IMPRESSION Limited study demonstrating mild right hydronephrosis and multiple intrarenal calculi. Electronically signed by: Krystle Keller MD Date of Signature: 12/16/2019 20:38:58 ALLERGIC REACTION comments No results found for: SMEO Lab Results Component Value Date EOSINOPHILS 0.59 (H) 12/21/2019 VOLUME STATUS comments Lab Results Component Value Date SODIUMRNUR 17 12/16/2019 Lab Results Component Value Date CREATININEU 94.0 12/16/2019 Lab Results Component Value Date OSMOLALITYUR 448 12/16/2019 urine osmolallty Requested Number of Results for Past 12 Months Component Units 12/16/19 2059 CREATININEU mg/dL 94.0 OSMOLALITYUR mOsm/kg 448 No results found for: URICACID No results found for: BNP, BNPPOCT VANCOMYCIN LEVELS No Results for Requested Labs in Past 12 Months No results found for: VANCOMYCINTR N: 5-10 trough. [id number](VANCOMYCIN:3)@ Lab Results Component Value Date VANCOMYCIN 15 12/20/2019 VANCOMYCIN 19 12/19/2019 VANCOMYCIN 17 12/18/2019 N:5-40 RANDOM RHABDOMYOLYSIS comments No results found for: [id number] SERUM TODD No results found for: 8523139Z URINE TODD No results found for: CPK DIARRHEA No results found for: CDIFFTOXIN, CDIFTB Current Inpatient/Outpatient Systemic Antibiotics Penicillin Combinations Start End piperacillin-tazobactam (ZOSYN) IVPB 3.375 g 12/20/2019 3.375 g, Intravenous, EVERY 8 HOURS @ 12.5 mL/hr, Renally adjusted for cr.cl 21 TTP/HUS comments Requested Number of Results for Past 12 Months Component Units 12/21/19 0747 12/17/19 0501 12/16/19 1358 PLATELETCNT 10(3)/mcL 143 126* 162 URINE comments Results for orders placed or performed during the hospital encounter of 12/16/19 Urinalysis Microscopic If Indicated Result Value Ref Range Status SPECIFIC GRAVITY 1.012 1.003 - 1.035 Final URINE PH 6.0 5.0 - 8.0 Final WBC ESTERASE 3+ (A) Negative Final NITRITE Negative Negative Final PROTEIN, RANDOM URINE 1+ (A) Negative Final URINE GLUCOSE, QUAL Negative Negative Final URINE KETONES Negative Negative Final UROBILINOGEN <2.0 <2.0 mg/dL Final URINE BILIRUBIN Negative Negative Final URINE BLOOD 2+ (A) Negative maribell/ul Final URINALYSIS COLOR Yellow Yellow Final URINALYSIS CLARITY Clear Clear Final WBC (Urine) 21-50 (A) 0-5, Negative /hpf Final URINE RBC'S 0-5 0-5, Negative, None /hpf Final BACTERIA, URINE Rare (A) None, Absent /hpf Final URINE MUCOUS Rare None, Rare, Few Final DMH RENAL EPI CELLS Final URINE SPERM Final URINE TRICHOMONAS Final URINE YEAST Final Lab Results Component Value Date UWBC 21-50 (A) 12/16/2019 Lab Results Component Value Date ULEUK 3+ (A) 12/16/2019 Hospital Encounter on 12/16/19 Culture, Urine Specimen: Urine Result Value Ref Range CULTURE RESULTS NO GROWTH WITHIN 2 DAYS Current Inpatient/Outpatient Systemic Antibiotics Penicillin Combinations Start End piperacillin-tazobactam (ZOSYN) IVPB 3.375 g 12/20/2019 3.375 g, Intravenous, EVERY 8 HOURS @ 12.5 mL/hr, Renally adjusted for cr.cl 21 BONE come ends BONE Comments No Results for Requested Labs in Past 12 MonthsIONIZED CALCIUM No results found for: [id number] VIT D 25 OH. No results found for: [id number] VIT D, 1-25,DIHYDROXY No results found for: CAQT CALCIUM 24 HOURS ABG BRIEFLAB@(PHARTERIAL:1,PO2ART:1,NPX0NFD:1,CO2ART:1,O2ART:1)@ DIET Diet Orders (From admission, onward) Start Ordered 12/16/19 1700 Diet Cardiac Restrictions: Cardiac Prudent DIET EFFECTIVE NOW Question: Restrictions: Answer: Cardiac Prudent 12/16/19 1659 LABS RELATED TO DIET comments Recent Labs Units 12/20/19 0609 12/19/19 0612 POTASSIUM mmol/L 4.0 4.1 PHOSPHORUS mg/dL 3.1 2.8 MAGNESIUM mg/dL 2.1 2.3 ADJCA mg/dL 9.5 9.3 ALBUMIN g/dL 2.6* 2.6* TACROLIMUS [id number]:3)@ @LABCRNT(FK506:3)@ SIROLIMUS: Examination General appearance:normal Eyes:normal Lungs: clear Heart: reg s1 an ds2. Abdomen: soft non tender Extremities:no edema Neurologic: EKG No results found. RADIOLOGY No results found for this or any previous visit. No results found for this or any previous visit. CULTURES BLOOD CULTURENo results found for this visit on 12/16/19. URINECULTURE Hospital Encounter on 12/16/19 Culture, Urine Specimen: Urine Result Value Ref Range CULTURE RESULTS NO GROWTH WITHIN 2 DAYS SPUTUM CULTURE@CULTURERSLTS@ Current Inpatient/Outpatient Systemic Antibiotics Penicillin Combinations Start End piperacillin-tazobactam (ZOSYN) IVPB 3.375 g 12/20/2019 3.375 g, Intravenous, EVERY 8 HOURS @ 12.5 mL/hr, Renally adjusted for cr.cl 21 INFECTION MARKERS Requested Number of Results for Past 12 Months Component Units 12/19/19 0612 12/18/19 0131 12/17/19 1002 12/17/19 0820 12/17/19 0501 12/16/19 1922 PCT ng/mL 0.09 0.06 -- -- -- -- 0.12* LACTICA mmol/L -- -- 2.4* 2.8* 1.4 < > 2.8* < > = values in this interval not displayed. Current Inpatient/Outpatient Systemic Antibiotics Penicillin Combinations Start End piperacillin-tazobactam (ZOSYN) IVPB 3.375 g 12/20/2019 3.375 g, Intravenous, EVERY 8 HOURS @ 12.5 mL/hr, Renally adjusted for cr.cl 21 HYPERTENSION No results found for: CORTCORTISOL No components found for: RENINACTIVITY No results found for: [id number] ALDOSTERNOEN No components found for: ALDOSRENLCALC ALDOSTERNONE/RENIN ACTIVITY RATIO 20^ No results found for: [id number] METANEPHRINE. No results found for: 5951541U NORMETANEPHRINE. No results found for: [id number] NORMETANEPHRINE INTERPRETATION LIVER Recent Labs Units 12/20/19 0609 12/19/19 0612 ALBUMIN g/dL 2.6* 2.6* No results for input(s): AMMONIA in the last 72 hours. No results found for: HEPB No results found for: HCVAB PANCREASE No Results for Requested Labs in Past 12 Months No Results for Requested Labs in Past 12 Months The Portions of this chart may have been created with voice recognition software. Occasional wrong-wordor ???sound-alike?? substitutions may have occurred due to the inherent limitations of voice recognition software. Read the chart carefully and recognize, using context, where these substitutions have occurred. ASSESMENT patient admitted with Hospital with weakness and fatigue and patient was also not eating and drinking initially creatinine was 8.0 it did came down after hydration to 5 and I was consulted patient also had hypernatremia patient also had elevated lactic acid which is better now there was acidosis also Acute renal failure. Urine sodium is only 17, most likely secondary due to dehydration however chronic kidney disease progression is a possibility as well as obstructive uropathy with absence left kidney Patient may have underlying chronic kidney disease with a baseline creatinine of 1.6 to about 2.0 from care every the Acidosis. Hypernatremia. Possibility of UTI, possibility of sepsis, Gram-positive rods in the blood could be contamination possibility of UTI id consulted History of hypertension. History of CVA. History of proximal right humeral fracture. History of hypertension absent left kidney. Indeterminate bilateral renal masses Hydronephrosis right kidney, on ultrasound but negative on CT scan Mild hypernatremia: Patient is getting D5W for hydration purposes. Proteinuria Plan: Patient is maintaining a good urine output 5.8 L negative and total now 7 L negative patient is getting D5W at 50 an hour because of the hypernatremia, at the current moment patient is on Zosyn and vancomycin for the UTI, I have discussed with the son in detail that there is known left kidney, serum sodium is down to 147 CO2 is 25 creatinine is 2.10 which is almost at the baseline patient is advised to drink water, we will sign off from the case. Patient can be discharged home from a nephrologypoint of view patient does have underlying chronic kidney disease the son already is aware of that I did told him that there was a absent left kidney Orders I Authorized in the last 24 Hrs Ur Osmolality ONE TIME Ur Creatinine Random ONE TIME Ur Sodium (Na) Random ONE TIME Protein Electrophoresis, Serum DMH ONE TIME Protein Electrophoresis, Ur Random, DMH ONE TIME [place]/Lambda/Free Light Chains, [id number] ONE TIME Renal Function Panel (RFP) Daily AM Draw for 3 Days dextrose 5 % solution CONTINUOUS ALEX SARMIENTO MD 12/21/2019 * Albaro Arevalo MD - 12/20/2019 11:28 AM CDT INPATIENT PROGRESS NOTE- HOSPITALIST Trisha Waite is a 69 y.o. female at Hospital Day (LOS: 3 days) Chief complaint moira Subjective: Pt is doing well No major issues overnight Objective: BP 160/73 Pulse 61 Temp 98.1 ??F (36.7 ??C) (Oral) Resp 20 Ht 5' 6 (1.676 m) Wt 141 lb 12.8 oz (64.3 kg) SpO2 97% BMI 22.89 kg/m?? Intake/Output Summary (Last 24 hours) at 12/20/2019 1128 Last data filed at 12/20/2019 0442 Gross per 24 hour Intake -- Output 1100 ml Net -1100 ml Physical Exam aao3 ctab rrrs12 abd soft,bs norm Skin warm and dry Active Scheduled and PRN meds amLODIPine, 2.5 mg, Daily aspirin, 81 mg, Daily HEParin (porcine), 5,000 Units, Q12H VARGHESE piperacillin-tazobactam, 3.375 g, Q8H dextrose, Last Rate: 50 mL/hr at 12/20/19 0443 ondansetron, 4 mg, Q4H PRN ondansetron, 4 mg, Q12H PRN vancomycin intermittent therapy, , PRN Lab Review CBC: Lab Results Component Value Date WBC 10.82 12/17/2019 RBC 4.42 12/17/2019 HEMOGLOBIN 13.5 12/17/2019 HEMATOCRIT 43.6 12/17/2019 PLATELETCNT 126 (L) 12/17/2019 CMP: Lab Results Component Value Date SODIUM 148 (H) 12/20/2019 POTASSIUM 4.0 12/20/2019 CHLORIDE 118 (H) 12/20/2019 CO2VEN 25 12/20/2019 ANIONGAP 9.0 (L) 12/20/2019 GLUCOSE 108 12/20/2019 BUN 37 (H) 12/20/2019 CREATININE 2.40 (H) 12/20/2019 BCRATIO8 15 12/20/2019 TOTALPROTEIN 5.7 (L) 12/16/2019 ALBUMIN 2.6 (L) 12/20/2019 CALCIUM 8.4 (L) 12/20/2019 TBIL 0.4 12/16/2019 SGPTALT 25 12/16/2019 ALKALINEPHO 82 12/16/2019 GFRNA 19 12/20/2019 GFRA 22 (L) 12/20/2019 No results for input(s): GLUCOSEPOCT in the last 72 hours. Labs/chart/meds and notes reviewed Pt is a 69 y/o female with a PMH of Depression, HTN, Ischemic Stroke and Displaced fx of proximal end of right humerus in 2018 who presented to the ED at [facility] in [place] for evaluation of weakness and fatigue since 12/14/19. Pt became more lethargic on yesterday and was unable to move or speak, so her son took her to the ED for further evaluation. While in the ED at [facility] in [place], pt had labs drawn and was found to have hypernatremia with a Sodium of 161. She had MOIRA with BUN of 161 and Cr of 8.06. Pt had lactic acid as high as 3.2. She also had urinalysis suggestive of UTI with WBCs and bacteria. She was given IV Ceftriaxone. She was also given 1 L sweetie us of NS and started on D5 0.45NS. Ingram catheter placed. Cultures taken. CXR nl and no acute findings mentioned on EKG; pt was in sinus tachy with mention of findings suggestive of possible old inferior [place]. CT head was negative for any acute abnormalities. Pt transferred over for further evaluation and management of MOIRA, Sepsis and hypernatremia. Pt did not require pressors. Labs repeated on arrival with slight improvement; Na of 156, Potassium of 4.3, BUN of 137 and Cr of 5.7. Lactic acid now2.7. Blood cultures at OSH showing grown of gram pos Rods. Consulted Nephrology and Infectious Disease. We Will continue with IVF and IV antibiotics and monitor sodium closely. ?? A/P 1. Possible Sepsis, Lactic acidosis, GPR in blood cx could be contamination. Urine looks infected. UTI with GNR. Ct with abx; improved. abx per ID. Repeated blood cultures with no growth so far. ?? 2. MOIRA on CKD 3 with significant azotemia but no clear signs of uremia : pt is making urine. Cr wasoriginally 8.06 on presentation. It improved down to 2.4. It looks mainly dehydration with low urine sodium. Ct with IVF and adjust accordingly. Mild right hydro noted in right side but no obvious cause/urology evaluated and pt can have MRI for renal masses further evaluation but nothing urgent. She continue to improve with IVF. PT has atrophic left kidney. She has CKD 3 with baseline near 2. ?? 3. Hypernatremia: Pt with Na of 161 at OSH. It is now down to 148. ?? 4. HTN, H/o CVA in 2019: Pt with resulting memory problems per son. She is at baseline mental status. BP on lower side of normal at 97/63. Pt asymptomatic; BP seems to recover now. We will start her BP meds gradually. 5. DVT pfx Discharge planning. ALBARO AREVALO MD 12/20/2019 11:28 AM CDT * Alex Sarmiento MD - 12/20/2019 9:05 AM CDT Images from the original note were not included. Renal Progress Note COMPLAINT patient denies of any symptoms Last Ventilator settings: SpO2: 97 % ortions of this chart may have been created with voice recognition software. Occasional wrong-word or ???sound-alike?? substitutions may have occurred due to the inherent limitations of voice recognition software. Read the chart carefully and recognize, using context, where these substitutions have occurred. Pending Labs Order Current Status Culture, Blood In process Culture, Blood Preliminary result ELECTROLYTES Recent Labs Units 12/20/19 0609 12/19/19 0612 12/18/19 0131 SODIUM mmol/L 148* 150* 153* POTASSIUM mmol/L 4.0 4.1 3.4* CHLORIDE mmol/L 118* 121* 125* CO2VEN mmol/L 25 21 21 ANIONGAP mmol/L 9.0* 12.1 10.4 BUN mg/dL 37* 55* 94* CREATININE mg/dL 2.40* 2.80* 3.80* GFRA 22* 18* 12* ALBUMIN g/dL 2.6* 2.6* 2.7* ADJCA mg/dL 9.5 9.3 9.0 PHOSPHORUS mg/dL 3.1 2.8 3.4 CALCIUM mg/dL 8.4* 8.2* 8.0* MAGNESIUM mg/dL 2.1 2.3 2.4 No results found for: PARAT Pending Labs Order Current Status Culture, Blood In process Culture, Blood Preliminary result CBC No results for input(s): WBC, HEMOGLOBIN, HEMATOCRIT, PLATELETCNT in the last 72 hours. No Results for Requested Labs in Past 12 Months No results found for: FOLAT No results found for: [id number] No results found for: TSH No results found for: T4FREE No components found for: T3FREE No results found for: OCCULTBLOOD BONE Comments No Results for Requested Labs in Past 12 MonthsIONIZED CALCIUM No results found for: [id number] VIT D 25 OH. No results found for: [id number] VIT D, 1-25,DIHYDROXY No results found for: CAQT CALCIUM 24 HOURS PROTEINURIA comments No results found for: [id number] Lab Results Component Value Date UPCRO 1.77 12/19/2019 Lab Results Component Value Date PROTEINRNUR 1+ (A) 12/16/2019 Lab Results Component Value Date URINERBC 2+ (A) 12/16/2019 URINERBC 0-5 12/16/2019 Pending Labs Order Current Status Culture, Blood In process Culture, Blood Preliminary result VASCULITIS/GAMMOPATHY comments No results found for: LATASHA No results found for: DBLSTRDNAANTI DNA. No results found for: [id number] No results found for: [id number] No results found for: COMPLEMENTT, [id number], [id number] No results found for: ANCASC No results found for: ANCAIGG No results found for: ANCTTR No results found for: [id number] Meloperoxidase nl 0-19 No results found for: [id number] PR3 i.e serine proteiase nl 0-19 No results found for: 7795672M Anti Gbm No results found for: PROTUC, PALBUMIN, PALPHA1, PATHINTERP, BETA, GAMMAGLOB SPEP/UPEP. No results found for: [id number] LIGHT CHAIN. No results found for: [id number] LIGHT CHAIN. No results found for: [id number]/LAMBDA FREE LIGHTCHAIN RATIO. No results found for: [id number] TESTING Pending Labs Order Current Status Culture, Blood In process Culture, Blood Preliminary result RENAL ULTRA SOUND Results for orders placed or performed during the hospital encounter of 12/16/19 US RENAL COMPLETE Collection Time: 12/16/19 8:10 PM Narrative EXAMINATION: US RENAL COMPLETE HPI: 61-year-old female with acute renal failure. COMPARISON: None available. TECHNIQUE: Complete renal ultrasound performed evaluation of the bladder obtained. FINDINGS: RIGHT KIDNEY:Right kidney is normal in size measuring 11.7 x 5.7 x 6.6 cm. There are intrarenal calculi present. Mild hydronephrosis is demonstrated. LEFT KIDNEY:Not visualized. BLADDER: Decompressed by a Ingram catheter. IMPRESSION Limited study demonstrating mild right hydronephrosis and multiple intrarenal calculi. Electronically signed by: Krystle Keller MD Date of Signature: 12/16/2019 20:38:58 ALLERGIC REACTION comments No results found for: SMEO Lab Results Component Value Date EOSINOPHILS 0.50 (H) 12/17/2019 VOLUME STATUS comments Lab Results Component Value Date SODIUMRNUR 17 12/16/2019 Lab Results Component Value Date CREATININEU 94.0 12/16/2019 Lab Results Component Value Date OSMOLALITYUR 448 12/16/2019 urine osmolallty Requested Number of Results for Past 12 Months Component Units 12/16/192058 CREATININEU mg/dL 94.0 OSMOLALITYUR mOsm/kg 448 No results found for: URICACID No results found for: BNP, BNPPOCT VANCOMYCIN LEVELS No Results for Requested Labs in Past 12 Months No results found for: VANCOMYCINTR N: 5-10 trough. [id number](VANCOMYCIN:3)@ Lab Results Component Value Date VANCOMYCIN 19 12/19/2019 VANCOMYCIN 17 12/18/2019 VANCOMYCIN 16 12/17/2019 N:5-40 RANDOM RHABDOMYOLYSIS comments No results found for: [id number] SERUM TODD No results found for: [id number] URINE TODD No results found for: CPK DIARRHEA No results found for: CDIFFTOXIN, CDIFTB Current Inpatient/Outpatient Systemic Antibiotics Penicillin Combinations Start End piperacillin-tazobactam (ZOSYN) IVPB 3.375 g 12/20/2019 3.375 g, Intravenous, EVERY 8 HOURS @ 12.5 mL/hr, Renally adjusted for cr.cl 21 TTP/HUS comments Requested Number of Results for Past 12 Months Component Units 12/17/19 0501 12/16/19 1358 PLATELETCNT 10(3)/mcL 126* 162 URINE comments Results for orders placed or performed during the hospital encounter of 12/16/19 Urinalysis Microscopic If Indicated Result Value Ref Range Status SPECIFIC GRAVITY 1.012 1.003 - 1.035 Final URINE PH 6.0 5.0 - 8.0 Final WBC ESTERASE 3+ (A) Negative Final NITRITE Negative Negative Final PROTEIN, RANDOM URINE 1+ (A) Negative Final URINE GLUCOSE, QUAL Negative Negative Final URINE KETONES Negative Negative Final UROBILINOGEN <2.0 <2.0 mg/dL Final URINE BILIRUBIN Negative Negative Final URINE BLOOD 2+ (A) Negative maribell/ul Final URINALYSIS COLOR Yellow Yellow Final URINALYSIS CLARITY Clear Clear Final WBC (Urine) 21-50 (A) 0-5, Negative /hpf Final URINE RBC'S 0-5 0-5, Negative, None /hpf Final BACTERIA, URINE Rare (A) None, Absent /hpf Final URINE MUCOUS Rare None, Rare, Few Final DMH RENAL EPI CELLS Final URINE SPERM Final URINE TRICHOMONAS Final URINE YEAST Final Lab Results Component Value Date UWBC 21-50 (A) 12/16/2019 Lab Results Component Value Date ULEUK 3+ (A) 12/16/2019 Hospital Encounter on 12/16/19 Culture, Urine Specimen: Urine Result Value Ref Range CULTURE RESULTS NO GROWTH WITHIN 2 DAYS Current Inpatient/Outpatient Systemic Antibiotics Penicillin Combinations Start End piperacillin-tazobactam (ZOSYN) IVPB 3.375 g 12/20/2019 3.375 g, Intravenous, EVERY 8 HOURS @ 12.5 mL/hr, Renally adjusted for cr.cl 21 BONE come ends BONE Comments No Results for Requested Labs in Past 12 MonthsIONIZED CALCIUM No results found for: [id number] VIT D 25 OH. No results found for: [id number] VIT D, 1-25,DIHYDROXY No results found for: CAQT CALCIUM 24 HOURS ABG BRIEFLAB@(PHARTERIAL:1,PO2ART:1,CBF1BAO:1,CO2ART:1,O2ART:1)@ DIET Diet Orders (From admission, onward) Start Ordered 12/16/19 1700 Diet Cardiac Restrictions: Cardiac Prudent DIET EFFECTIVE NOW Question: Restrictions: Answer: Cardiac Prudent 12/16/19 1659 LABS RELATED TO DIET comments Recent Labs Units 12/20/19 0609 12/19/19 0612 12/18/19 0131 POTASSIUM mmol/L 4.0 4.1 3.4* PHOSPHORUS mg/dL 3.1 2.8 3.4 MAGNESIUM mg/dL 2.1 2.3 2.4 ADJCA mg/dL 9.5 9.3 9.0 ALBUMIN g/dL 2.6* 2.6* 2.7* TACROLIMUS UELY8LT([id number]:3)@ @LABCRNT(FK506:3)@ SIROLIMUS: Examination General appearance:normal Eyes:normal Lungs: clear Heart: reg s1 an ds2. Abdomen: soft non tender Extremities:no edema Neurologic: EKG No results found. RADIOLOGY No results found for this or any previous visit. No results found for this or any previous visit. CULTURES BLOOD CULTURENo results found for this visit on 12/16/19. URINECULTURE Hospital Encounter on 12/16/19 Culture, Urine Specimen: Urine Result Value Ref Range CULTURE RESULTS NO GROWTH WITHIN 2 DAYS SPUTUM CULTURE@CULTURERSLTS@ Current Inpatient/Outpatient Systemic Antibiotics Penicillin Combinations Start End piperacillin-tazobactam (ZOSYN) IVPB 3.375 g 12/20/2019 3.375 g, Intravenous, EVERY 8 HOURS @ 12.5 mL/hr, Renally adjusted for cr.cl 21 INFECTION MARKERS Requested Number of Results for Past 12 Months Component Units 12/19/19 0612 12/18/19 0131 12/17/19 1002 12/17/19 0820 12/17/19 0501 12/16/19 1922 PCT ng/mL 0.09 0.06 -- -- -- -- 0.12* LACTICA mmol/L -- -- 2.4* 2.8* 1.4 < > 2.8* < > = values in this interval not displayed. Current Inpatient/Outpatient Systemic Antibiotics Penicillin Combinations Start End piperacillin-tazobactam (ZOSYN) IVPB 3.375 g 12/20/2019 3.375 g, Intravenous, EVERY 8 HOURS @ 12.5 mL/hr, Renally adjusted for cr.cl 21 HYPERTENSION No results found for: CORTCORTISOL No components found for: RENINACTIVITY No results found for: [id number] ALDOSTERNOEN No components found for: ALDOSRENLCALC ALDOSTERNONE/RENIN ACTIVITY RATIO 20^ No results found for: [id number] METANEPHRINE. No results found for: [id number] NORMETANEPHRINE. No results found for: [id number] NORMETANEPHRINE INTERPRETATION LIVER Recent Labs Units 12/20/19 0609 12/19/19 0612 12/18/19 0131 ALBUMIN g/dL 2.6* 2.6* 2.7* No results for input(s): AMMONIA in the last 72 hours. No results found for: HEPB No results found for: HCVAB PANCREASE No Results for Requested Labs in Past 12 Months No Results for Requested Labs in Past 12 Months The Portions of this chart may have been created with voice recognition software. Occasional wrong-wordor ???sound-alike?? substitutions may have occurred due to the inherent limitations of voice recognition software. Read the chart carefully and recognize, using context, where these substitutions have occurred. ASSESMENT patient admitted with Hospital with weakness and fatigue and patient was also not eating and drinking initially creatinine was 8.0 it did came down after hydration to 5 and I was consulted patient also had hypernatremia patient also had elevated lactic acid which is better now there was acidosis also Acute renal failure. Urine sodium is only 17, most likely secondary due to dehydration however chronic kidney disease progression is a possibility as well as obstructive uropathy with absence left kidney Patient may have underlying chronic kidney disease with a baseline creatinine of 1.6 to about 2.0 from care every the Acidosis. Hypernatremia. Possibility of UTI, possibility of sepsis, Gram-positive rods in the blood could be contamination possibility of UTI id consulted History of hypertension. History of CVA. History of proximal right humeral fracture. History of hypertension absent left kidney. Indeterminate bilateral renal masses Hydronephrosis right kidney, on ultrasound but negative on CT scan Mild hypernatremia: Patient is getting D5W for hydration purposes. Proteinuria Plan: Patient has underlying chronic kidney disease probably patient got dehydration secondary due to noteating and drinking she also had a UTI with Gram-positive cocci in the blood, serum creatinine after IV fluid hydration is down to 2.4 baseline probably is about 1.6-2.0. Patient does have some adrenal masses also will be followed up with Dr. Rahul bravo as a outpatient patient may need a MRI for possible mass on the right kidney. Patient does have only 1 kidney left absent. I will do urine sodiumand urine osmolality for the cause of the hyper natremia. Orders I Authorized in the last 24 Hrs Adjusted Calcium *[facility] ONE TIME Renal Function Panel (RFP) Daily AM Draw for 3 Days dextrose 5 % solution CONTINUOUS ALEX SARMIENTO MD 12/20/2019 * Brenda Oseguera APN, C.O.D. CLERK - 12/20/2019 8:58 AM CDT Images from the original note were not included. INFECTIOUS DISEASE PROGRESS NOTE GLADYS MADDEN CNP, MD FAC DATE OF VISIT 12/20/2019 TIME OF VISIT 8:58 AM CDT Trisha Waite is seen in follow-up for probable sepsis, and complicated urinary tract infection, culture with E coli. Less likely bacteremia, Gram- positive rods bacillus species and probable cutaneous contamination. Patient also has acute kidney injury and is being followed by Nephrology Services. Patient was found to have some mild hydronephrosis of the right kidney and intrarenal calculi. Patient underwent CT abdomen pelvis and was found to have possible indeterminate renal masses and Urology was consulted and patient is to follow-up as an outpatient these concerns. At time of visit today, patient is seen resting in the bed comfortably in no acute distress. Patient reports that overall she feels improved and doing well. Patient denies any pain at time of visit today. She continues to have Ingram catheter with clear yellow urine in the bag denies any issues. Patient currently denies fever, chills, diarrhea, shortness of breath, cough or rash. Patient does report that she had some nausea again today however denies any vomiting. Intake and output reviewed the negative net fluid balance of 5.8 L since admission and 1.6 L of urinary output has been documented last 24 hours. Patient is currently hemodynamically stable and afebrile. The rest review of systems is noncontributory. Current Inpatient/Outpatient Systemic Antibiotics Penicillin Combinations Start End piperacillin-tazobactam (ZOSYN) IVPB 3.375 g 12/20/2019 3.375 g, Intravenous, EVERY 8 HOURS @ 12.5 mL/hr, Renally adjusted for cr.cl 21 Current Facility-Administered Medications: ??? amLODIPine (NORVASC) tablet 2.5 mg, 2.5 mg, Oral, Daily, Albaro Arevalo MD, 2.5 mg at 12/20/19 0837 ??? aspirin chewable tablet 81 mg, 81 mg, Oral, Daily, Lissette Saul MD, 81 mg at 12/20/19 0837 ??? dextrose 5 % solution, , Intravenous, Continuous, Alex Sarmiento MD, Last Rate: 50 mL/hr at 12/20/19 0443 ??? HEParin (porcine) injection 5,000 Units, 5,000 Units, Subcutaneous, Q12H VARGHESE, Albaro Arevalo MD, 5,000 Units at 12/20/19 0837 ??? ondansetron (ZOFRAN) injection 4 mg, 4 mg, Intravenous, Q4H PRN, Lefty Ley MD, 4mg at 12/19/19 1051 ??? ondansetron (ZOFRAN-ODT) disintegrating tablet 4 mg, 4 mg, Oral, Q12H PRN OR [DISCONTINUED]ondansetron (ZOFRAN) injection 4 mg, 4 mg, Intravenous, Q12H PRN, Lissette Saul MD, 4 mgat 12/18/19 1045 ??? piperacillin-tazobactam (ZOSYN) IVPB 3.375 g, 3.375 g, Intravenous, Q8H, Albaro Arevalo MD, Last Rate: 12.5 mL/hr at 12/20/19 0834, 3.375 g at 12/20/19 0834 ??? VANCOMYCIN INTERMITTENT THERAPY, , Miscellaneous, PRN, Lissette Saul MD VITAL SIGNS Vitals: 12/19/19 1200 12/19/19 1900 12/20/19 0444 12/20/19 0800 BP: 161/90 169/82 114/69 160/73 Pulse: 69 64 74 61 Resp: 18 18 18 20 Temp: 97.5 ??F (36.4 ??C) 97.9 ??F (36.6 ??C) 98.3 ??F (36.8 ??C) 98.1 ??F (36.7 ??C) TempSrc: Oral Oral Oral Oral SpO2: 97% 95% 94% 97% Weight: Height: Patient Vitals for the past 24 hrs (Last 4 readings): Temp 12/20/19 0800 98.1 ??F (36.7 ??C) 12/20/19 0444 98.3 ??F (36.8 ??C) 12/19/19 1900 97.9 ??F (36.6 ??C) 12/19/19 1200 97.5 ??F (36.4 ??C) Patient Lines/Drains/Airways Status Active LDAs Name: Placement date: Placement time: Site: Days: Urethral Catheter 12/15/19 16 12/15/19 -- 5 Peripheral IV Line - Single Lumen 12/16/19 median cubital vein (antecubital fossa), left 22 gauge 12/16/19 -- 4 Peripheral IV Line - Single Lumen 12/20/19 0123 median vein (underside of arm), left 20 gauge 12/20/19 0123 less than 1 PHYSICAL EXAMINATION GENERAL: Pleasant female, awake, alert, and in no acute distress. SKIN: No rash, no ecchymosis or petechiae. EYES: Sclerae anicteric. ENT: Oral mucosa moist, no exudate, no thrush. NECK: Supple, no lymphadenopathy, no JVD. LUNGS: Clear to auscultation, no wheeze, no rhonchi. HEART: S1, S2 regular, soft murmur or rub. ABDOMEN: Soft, not tender, not distended, no hepatosplenomegaly. BACK: Positive right CVA tenderness, no vertebral tenderness. EXTREMITIES: No edema, no cyanosis. MUSCULOSKELETAL: No joint effusion, swelling or tenderness. NEUROLOGIC: Awake, alert and oriented x 3, previous stroke with memory recall deficit /GI: Ingram catheter with clear yellow urine in the bag LABORATORY DATA Lab Results Component Value Date WBC 10.82 12/17/2019 HEMOGLOBIN 13.5 12/17/2019 HEMATOCRIT 43.6 12/17/2019 PLATELETCNT 126 (L) 12/17/2019 MCV 98.6 12/17/2019 Recent Labs Units 12/20/19 0609 12/19/19 0612 12/18/19 0131 SODIUM mmol/L 148* 150* 153* POTASSIUM mmol/L 4.0 4.1 3.4* CHLORIDE mmol/L 118* 121* 125* CO2VEN mmol/L 25 21 21 ANIONGAP mmol/L 9.0* 12.1 10.4 GLUCOSE mg/dL 108 100 107 BUN mg/dL 37* 55* 94* CREATININE mg/dL 2.40* 2.80* 3.80* BCRATIO8 ratio 15 20 25* ALBUMIN g/dL 2.6* 2.6* 2.7* CALCIUM mg/dL 8.4* 8.2* 8.0* GFRNA 19 15 10 GFRA 22* 18* 12* Lab Results Component Value Date CRP 6.0 (H) 12/18/2019 Lab Results Component Value Date LACTICA 2.4 (H) 12/17/2019 LACTICA 2.8 (H) 12/17/2019 LACTICA 1.4 12/17/2019 Lab Results Component Value Date PCT 0.09 12/19/2019 PCT 0.06 12/18/2019 PCT 0.12 (H) 12/16/2019 Lab Results Component Value Date VANCOMYCIN 19 12/19/2019 VANCOMYCIN 17 12/18/2019 VANCOMYCIN 16 12/17/2019 MICROBIOLOGY Microbiology Results for this Admission Procedure Component Value Units Date/Time Culture, Urine [[id number]] Collected: 12/16/192058 Order Status: Completed Specimen: Urine Updated: 12/19/19 0958 CULTURE RESULTS NO GROWTH WITHIN 2 DAYS Culture, Blood [[id number]] Collected: 12/19/19 0706 Order Status: Completed Specimen: Culture from Blood Updated: 12/20/19 0800 CULTURE RESULTS NO GROWTH WITHIN 1 DAY IMPRESSION Probable Sepsis, resolved Elevated procalcitonin, improving ?Bacteremia, Gram-positive rods bacillus species, less likely Repeat blood cultures in process Complicated urinary tract infection Urine culture greater than 100,000 CFU-mL E coli Lactic acidosis Leukocytosis, resolved MOIRA, elevated creatinine, improving ?Right hydronephrosis on ultra sound, not identified on CT Right intrarenal calculi, non obstructing Right renal masses Hypernatremia, improving Metabolic encephalopathy, resolved Multiple medical problems Depression, stroke with memory recall deficit RECOMMENDATIONS Continue IV Zosyn 3.375 g every 8 hours Continue IV vancomycin per pharmacy protocol Vancomycin random on 12/18/2018 and therapeutic Yesterday's dose was held Vancomycin random level later tonight Will monitor renal function closely Continue supportive care. Await final results of cultures. Ingram catheter per Urology/Nephrology. Recommend removal wound medically indicated. Will order CBC for tomorrow morning. Treatment plan was discussed with the patient in detail and questions answered. She seems to comprehend well and are appreciative of care. Discussed with nursing staff. Will follow. BRENDA OSEGUERA APN, SARAH; 12/20/2019, 8:58 AM CDT Cosigned by Giovanny Corona MD at 12/13/2021 2:50 PM CDT * Brenda Oseguera APN, CNP - 12/19/2019 12:08 PM CDT Images from the original note were not included. INFECTIOUS DISEASE PROGRESS NOTE GLADYS MADDEN CNP, MD FACP DATE OF VISIT 12/19/2019 TIME OF VISIT 12:08 PM CDT Trisha Waite is seen in follow-up for probable sepsis, and complicated urinary tract infection, culture with E coli. Less likely bacteremia, Gram- positive rods bacillus species and probable cutaneous contamination. Patient also has acute kidney injury and is being followed by Nephrology Services. Patient was found to have some mild hydronephrosis of the right kidney and intrarenal calculi. Patient underwent CT abdomen pelvis and was found to have possible indeterminate renal masses and Urology was consulted and patient is to follow-up as an outpatient these concerns. At time of visit today, patient is seen resting in the chair comfortably in no acute distress. Patient reports that overall she feels improved and doing well. Patient denies any pain at time of visittoday. She continues to have Ingram catheter with clear yellow urine in the bag denies any issues. Patient currently denies fever, chills, diarrhea, shortness of breath, cough or rash. Patient does report that she had some nausea and one emesis this morning when trying to ambulate. Patient reports Zofran helps slightly. Intake and output reviewed the negative net fluid balance of 4.3 L since admission and 1.8 L of urinary output has been documented last 24 hours. Patient is currently hemodynamically stable and afebrile. The rest review of systems is noncontributory. Current Inpatient/Outpatient Systemic Antibiotics Penicillin Combinations Start End piperacillin-tazobactam (ZOSYN) IVPB 3.375 g 12/17/2019 3.375 g, Intravenous, EVERY 12 HOURS @ 12.5 mL/hr, Renally adjusted for cr. Cl 10.1 Current Facility-Administered Medications: ??? amLODIPine (NORVASC) tablet 2.5 mg, 2.5 mg, Oral, Daily, Albaro Arevalo MD, 2.5 mg at 12/19/19 1000 ??? aspirin chewable tablet 81 mg, 81 mg, Oral, Daily, Lissette Saul MD, 81 mg at 12/19/19 0850 ??? dextrose 5 % solution, , Intravenous, Continuous, Alex Sarmiento MD, Last Rate: 50 mL/hr at 12/19/19 1001 ??? HEParin (porcine) injection 5,000 Units, 5,000 Units, Subcutaneous, Q12H VARGHESE, Albaro Arevalo MD ??? ondansetron (ZOFRAN) injection 4 mg, 4 mg, Intravenous, Q4H PRN, Lefty Ley MD, 4mg at 12/19/19 1051 ??? ondansetron (ZOFRAN-ODT) disintegrating tablet 4 mg, 4 mg, Oral, Q12H PRN OR [DISCONTINUED]ondansetron (ZOFRAN) injection 4 mg, 4 mg, Intravenous, Q12H PRN, Lissette Saul MD, 4 mgat 12/18/19 1045 ??? piperacillin-tazobactam (ZOSYN) IVPB 3.375 g, 3.375 g, Intravenous, Q12H, Albaro Arevalo MD, Last Rate: 12.5 mL/hr at 12/19/19 0855, 3.375 g at 12/19/19 0855 ??? VANCOMYCIN INTERMITTENT THERAPY, , Miscellaneous, PRN, Lissette Saul MD VITAL SIGNS Vitals: 12/18/19 1300 12/18/19 2100 12/19/19 0412 12/19/19 0802 BP: 156/88 151/82 136/81 (!) 124/95 Pulse: 87 71 70 77 Resp: 18 18 16 18 Temp: 97.6 ??F (36.4 ??C) 98.2 ??F (36.8 ??C) 98.1 ??F (36.7 ??C) 97 ??F (36.1 ??C) TempSrc: Oral Oral Oral Oral SpO2: 96% 93% 94% 96% Weight: Height: Patient Vitals for the past 24 hrs (Last 4 readings): Temp 12/19/19 0802 97 ??F (36.1 ??C) 12/19/19 0412 98.1 ??F (36.7 ??C) 12/18/19 2100 98.2 ??F (36.8 ??C) 12/18/19 1300 97.6 ??F (36.4 ??C) Patient Lines/Drains/Airways Status Active LDAs Name: Placement date: Placement time: Site: Days: Urethral Catheter 12/15/19 16 12/15/19 -- 4 Peripheral IV Line - Single Lumen 12/16/19 basilic vein (medial side of arm), right 22 gauge 12/16/19 -- 3 Peripheral IV Line - Single Lumen 12/16/19 median cubital vein (antecubital fossa), left 22 gauge 12/16/19 -- 3 PHYSICAL EXAMINATION GENERAL: Pleasant female, awake, alert, and in no acute distress. SKIN: No rash, no ecchymosis or petechiae. EYES: Sclerae anicteric. ENT: Oral mucosa moist, no exudate, no thrush. NECK: Supple, no lymphadenopathy, no JVD. LUNGS: Clear to auscultation, no wheeze, no rhonchi. HEART: S1, S2 regular, soft murmur or rub. ABDOMEN: Soft, not tender, not distended, no hepatosplenomegaly. BACK: Positive right CVA tenderness, no vertebral tenderness. EXTREMITIES: No edema, no cyanosis. MUSCULOSKELETAL: No joint effusion, swelling or tenderness. NEUROLOGIC: Awake, alert and oriented x 3, previous stroke with memory recall deficit /GI: Ingram catheter with clear yellow urine in the bag LABORATORY DATA Recent Labs Units 12/17/19 0501 12/16/19 1358 WBC 10(3)/mcL 10.82 15.02* HEMOGLOBIN g/dL 13.5 16.1* HEMATOCRIT % 43.6 52.5* PLATELETCNT 10(3)/mcL 126* 162 MCV fL 98.6 100.0 Recent Labs Units 12/19/19 0612 12/18/19 0131 12/17/19 0501 12/16/19 1922 12/16/19 1358 SODIUM mmol/L 150* 153* 156* 154* 156* POTASSIUM mmol/L 4.1 3.4* 3.7 3.9 4.3 CHLORIDE mmol/L 121* 125* 125* 126* 126* CO2VEN mmol/L 21 21 21 15* 18* ANIONGAP mmol/L 12.1 10.4 13.7 16.9 16.3 GLUCOSE mg/dL 100 107 117* 224* 142* BUN mg/dL 55* 94* 120* 129* 137* CREATININE mg/dL 2.80* 3.80* 5.00* 5.30* 5.70* BCRATIO8 ratio 20 25* 24* 24* 24* TOTALPROTEIN g/dL -- -- -- 5.7* 6.7 ALBUMIN g/dL 2.6* 2.7* 2.7* 2.9* 3.5 CALCIUM mg/dL 8.2* 8.0* 8.0* 7.9* 8.5* TBIL mg/dL -- -- -- 0.4 0.6 SGOTAST U/L -- -- -- 21 33 SGPTALT U/L -- -- -- 25 29 ALKALINEPHO U/L -- -- -- 82 93 GFRNA 15 10 8 7 7 GFRA 18* 12* 9* 8* 8* Lab Results Component Value Date CRP 6.0 (H) 12/18/2019 Lab Results Component Value Date LACTICA 2.4 (H) 12/17/2019 LACTICA 2.8 (H) 12/17/2019 LACTICA 1.4 12/17/2019 Lab Results Component Value Date PCT 0.09 12/19/2019 PCT 0.06 12/18/2019 PCT 0.12 (H) 12/16/2019 Lab Results Component Value Date VANCOMYCIN 17 12/18/2019 VANCOMYCIN 16 12/17/2019 Recent Labs Units 12/16/19 1550 PHARTERIAL 7.34* TUN0LEU mmHg 30* PO2ART mmHg 64* O2ART % 92* 92.8* MICROBIOLOGY Microbiology Results for this Admission Procedure Component Value Units Date/Time Culture, Urine [[id number]] Collected: 12/16/192058 Order Status: Completed Specimen: Urine Updated: 12/19/1958 CULTURE RESULTS NO GROWTH WITHIN 2 DAYS IMPRESSION Probable Sepsis, resolved Elevated procalcitonin, improving ?Bacteremia, Gram-positive rods bacillus species, less likely Repeat blood cultures in process Complicated urinary tract infection Urine culture greater than 100,000 CFU-mL gram-negative rods so far Lactic acidosis Leukocytosis, resolved, resolved MOIRA, elevated creatinine, improving ?Right hydronephrosis on ultra sound, not identified on CT Right intrarenal calculi, non obstructing Right renal masses Hypernatremia, improving Metabolic encephalopathy, resolved Multiple medical problems Depression, stroke with memory recall deficit RECOMMENDATIONS Continue IV Zosyn 3.375 g every 8 hours Continue IV vancomycin per pharmacy protocol Yesterday's level 17 and therapeutic One time dose of 750 mg given Vancomycin random level later tonight Will monitor renal function closely Urine culture obtained on 12/15/2019 at [facility], greater than 100,000 E coli susceptible to ampicillin, Augmentin, aztreonam, cefepime, ceftriaxone, cefazolin, ciprofloxacin, ertapenem, nitrofurantoin, gentamicin, imipenem, Levaquin, meropenem, Zosyn, Bactrim and tetracycline. Blood culture obtained on 12/07/2019 at [facility], Gram-positive rods bacillus species not anthracis final x2. Probable cutaneous contamination. Bacteremia is unlikely at this time. Treatment plan was discussed with the patient in detail and questions answered. She seems to comprehend well and are appreciative of care. Discussed with nursing staff. Will follow. BRENDA OSEGUERA APN, C.O.D. CLERK; 12/19/2019, 12:08 PM CDT Cosigned by Giovanny Corona MD at 12/13/2021 2:50 PM CDT * Alex Sarmiento MD - 12/19/2019 9:40 AM CDT Images from the original note were not included. Renal Progress Note COMPLAINT patient denies of any symptoms Last Ventilator settings: SpO2: 96 % ortions of this chart may have been created with voice recognition software. Occasional wrong-word or ???sound-alike?? substitutions may have occurred due to the inherent limitations of voice recognition software. Read the chart carefully and recognize, using context, where these substitutions have occurred. Pending Labs Order Current Status Culture, Blood In process Culture, Urine Preliminary result ELECTROLYTES Recent Labs Units 12/19/19 0612 12/18/19 0131 12/17/19 0501 12/16/19 1922 12/16/19 1358 SODIUM mmol/L 150* 153* 156* 154* 156* POTASSIUM mmol/L 4.1 3.4* 3.7 3.9 4.3 CHLORIDE mmol/L 121* 125* 125* 126* 126* CO2VEN mmol/L 21 21 21 15* 18* ANIONGAP mmol/L 12.1 10.4 13.7 16.9 16.3 BUN mg/dL 55* 94* 120* 129* 137* CREATININE mg/dL 2.80* 3.80* 5.00* 5.30* 5.70* GFRA 18* 12* 9* 8* 8* ALBUMIN g/dL 2.6* 2.7* 2.7* 2.9* 3.5 ADJCA mg/dL 9.3 9.0 9.0 8.8 8.9 PHOSPHORUS mg/dL 2.8 3.4 3.9 -- 4.8* CALCIUM mg/dL 8.2* 8.0* 8.0* 7.9* 8.5* MAGNESIUM mg/dL 2.3 2.4 2.5 -- 3.1* TBIL mg/dL -- -- -- 0.4 0.6 SGOTAST U/L -- -- -- 21 33 SGPTALT U/L -- -- -- 25 29 ALKALINEPHO U/L -- -- -- 82 93 No results found for: PARAT Pending Labs Order Current Status Culture, Blood In process Culture, Urine Preliminary result CBC Recent Labs Units 12/17/19 0501 12/16/19 1358 WBC 10(3)/mcL 10.82 15.02* HEMOGLOBIN g/dL 13.5 16.1* HEMATOCRIT % 43.6 52.5* PLATELETCNT 10(3)/mcL 126* 162 No Results for Requested Labs in Past 12 Months No results found for: FOLAT No results found for: [id number] No results found for: TSH No results found for: T4FREE No components found for: T3FREE No results found for: OCCULTBLOOD BONE Comments No Results for Requested Labs in Past 12 MonthsIONIZED CALCIUM No results found for: [id number] VIT D 25 OH. No results found for: [id number] VIT D, 1-25,DIHYDROXY No results found for: CAQT CALCIUM 24 HOURS PROTEINURIA comments No results found for: [id number] No results found for: UPCRO Lab Results Component Value Date PROTEINRNUR 1+ (A) 12/16/2019 Lab Results Component Value Date URINERBC 2+ (A) 12/16/2019 URINERBC 0-5 12/16/2019 Pending Labs Order Current Status Culture, Blood In process Culture, Urine Preliminary result VASCULITIS/GAMMOPATHY comments No results found for: LATASHA No results found for: DBLSTRDNAANTI DNA. No results found for: [id number] No results found for: [id number] No results found for: COMPLEMENTT, [id number], [id number] No results found for: ANCASC No results found for: ANCAIGG No results found for: ANCTTR No results found for: [id number] Meloperoxidase nl 0-19 No results found for: [id number] PR3 i.e serine proteiase nl 0-19 No results found for: [id number] Anti Gbm No results found for: PROTUC, PALBUMIN, PALPHA1, PATHINTERP, BETA, GAMMAGLOB SPEP/UPEP. No results found for: [id number] LIGHT CHAIN. No results found for: [id number] LIGHT CHAIN. No results found for: [id number]/LAMBDA FREE LIGHTCHAIN RATIO. No results found for: [id number] TESTING Pending Labs Order Current Status Culture, Blood In process Culture, Urine Preliminary result RENAL ULTRA SOUND Results for orders placed or performed during the hospital encounter of 12/16/19 US RENAL COMPLETE Collection Time: 12/16/19 8:10 PM Narrative EXAMINATION: US RENAL COMPLETE HPI: 61-year-old female with acute renal failure. COMPARISON: None available. TECHNIQUE: Complete renal ultrasound performed evaluation of the bladder obtained. FINDINGS: RIGHT KIDNEY:Right kidney is normal in size measuring 11.7 x 5.7 x 6.6 cm. There are intrarenal calculi present. Mild hydronephrosis is demonstrated. LEFT KIDNEY:Not visualized. BLADDER: Decompressed by a Ingram catheter. IMPRESSION Limited study demonstrating mild right hydronephrosis and multiple intrarenal calculi. Electronically signed by: Krystle Keller MD Date of Signature: 12/16/2019 20:38:58 ALLERGIC REACTION comments No results found for: SMEO Lab Results Component Value Date EOSINOPHILS 0.50 (H) 12/17/2019 VOLUME STATUS comments Lab Results Component Value Date SODIUMRNUR 17 12/16/2019 Lab Results Component Value Date CREATININEU 94.0 12/16/2019 Lab Results Component Value Date OSMOLALITYUR 448 12/16/2019 urine osmolallty Requested Number of Results for Past 12 Months Component Units 12/16/192058 CREATININEU mg/dL 94.0 OSMOLALITYUR mOsm/kg 448 No results found for: URICACID No results found for: BNP, BNPPOCT VANCOMYCIN LEVELS No Results for Requested Labs in Past 12 Months No results found for: VANCOMYCINTR N: 5-10 trough. [id number](VANCOMYCIN:3)@ Lab Results Component Value Date VANCOMYCIN 17 12/18/2019 VANCOMYCIN 16 12/17/2019 N:5-40 RANDOM RHABDOMYOLYSIS comments No results found for: [id number] SERUM TODD No results found for: [id number] URINE TODD No results found for: CPK DIARRHEA No results found for: CDIFFTOXIN, CDIFTB Current Inpatient/Outpatient Systemic Antibiotics Penicillin Combinations Start End piperacillin-tazobactam (ZOSYN) IVPB 3.375 g 12/17/2019 3.375 g, Intravenous, EVERY 12 HOURS @ 12.5 mL/hr, Renally adjusted for cr. Cl 10.1 TTP/HUS comments Requested Number of Results for Past 12 Months Component Units 12/17/19 0501 12/16/19 1358 PLATELETCNT 10(3)/mcL 126* 162 URINE comments Results for orders placed or performed during the hospital encounter of 12/16/19 Urinalysis Microscopic If Indicated Result Value Ref Range Status SPECIFIC GRAVITY 1.012 1.003 - 1.035 Final URINE PH 6.0 5.0 - 8.0 Final WBC ESTERASE 3+ (A) Negative Final NITRITE Negative Negative Final PROTEIN, RANDOM URINE 1+ (A) Negative Final URINE GLUCOSE, QUAL Negative Negative Final URINE KETONES Negative Negative Final UROBILINOGEN <2.0 <2.0 mg/dL Final URINE BILIRUBIN Negative Negative Final URINE BLOOD 2+ (A) Negative maribell/ul Final URINALYSIS COLOR Yellow Yellow Final URINALYSIS CLARITY Clear Clear Final WBC (Urine) 21-50 (A) 0-5, Negative /hpf Final URINE RBC'S 0-5 0-5, Negative, None /hpf Final BACTERIA, URINE Rare (A) None, Absent /hpf Final URINE MUCOUS Rare None, Rare, Few Final DM[facility] RENAL EPI CELLS Final URINE SPERM Final URINE TRICHOMONAS Final URINE YEAST Final Lab Results Component Value Date UWBC 21-50 (A) 12/16/2019 Lab Results Component Value Date ULEUK 3+ (A) 12/16/2019 Hospital Encounter on 12/16/19 Culture, Urine Specimen: Urine Result Value Ref Range CULTURE RESULTS NO GROWTH WITHIN 1 DAY Current Inpatient/Outpatient Systemic Antibiotics Penicillin Combinations Start End piperacillin-tazobactam (ZOSYN) IVPB 3.375 g 12/17/2019 3.375 g, Intravenous, EVERY 12 HOURS @ 12.5 mL/hr, Renally adjusted for cr. Cl 10.1 BONE come ends BONE Comments No Results for Requested Labs in Past 12 MonthsIONIZED CALCIUM No results found for: [id number] VIT D 25 OH. No results found for: [id number] VIT D, 1-25,DIHYDROXY No results found for: CAQT CALCIUM 24 HOURS ABG BRIEFLAB@(PHARTERIAL:1,PO2ART:1,ADI7NJZ:1,CO2ART:1,O2ART:1)@ DIET Diet Orders (From admission, onward) Start Ordered 12/16/19 1700 Diet Cardiac Restrictions: Cardiac Prudent DIET EFFECTIVE NOW Question: Restrictions: Answer: Cardiac Prudent 12/16/19 1659 LABS RELATED TO DIET comments Recent Labs Units 12/19/19 0612 12/18/19 0131 12/17/19 0501 POTASSIUM mmol/L 4.1 3.4* 3.7 PHOSPHORUS mg/dL 2.8 3.4 3.9 MAGNESIUM mg/dL 2.3 2.4 2.5 ADJCA mg/dL 9.3 9.0 9.0 ALBUMIN g/dL 2.6* 2.7* 2.7* TACROLIMUS [id number](0990916R:3)@ @LABCRNT(FK506:3)@ SIROLIMUS: Examination General appearance:normal Eyes:normal Lungs: clear Heart: reg s1 an ds2. Abdomen: soft non tender Extremities:no edema Neurologic: EKG No results found. RADIOLOGY No results found for this or any previous visit. No results found for this or any previous visit. CULTURES BLOOD CULTURENo results found for this visit on 12/16/19. URINECULTURE Hospital Encounter on 12/16/19 Culture, Urine Specimen: Urine Result Value Ref Range CULTURE RESULTS NO GROWTH WITHIN 1 DAY SPUTUM CULTURE@CULTURERSLTS@ Current Inpatient/Outpatient Systemic Antibiotics Penicillin Combinations Start End piperacillin-tazobactam (ZOSYN) IVPB 3.375 g 12/17/2019 3.375 g, Intravenous, EVERY 12 HOURS @ 12.5 mL/hr, Renally adjusted for cr. Cl 10.1 INFECTION MARKERS Requested Number of Results for Past 12 Months Component Units 12/19/19 0612 12/18/19 0131 12/17/19 1002 12/17/19 0820 12/17/19 0501 12/16/19 1922 PCT ng/mL 0.09 0.06 -- -- -- -- 0.12* LACTICA mmol/L -- -- 2.4* 2.8* 1.4 < > 2.8* < > = values in this interval not displayed. Current Inpatient/Outpatient Systemic Antibiotics Penicillin Combinations Start End piperacillin-tazobactam (ZOSYN) IVPB 3.375 g 12/17/2019 3.375 g, Intravenous, EVERY 12 HOURS @ 12.5 mL/hr, Renally adjusted for cr. Cl 10.1 HYPERTENSION No results found for: CORTCORTISOL No components found for: RENINACTIVITY No results found for: [id number] ALDOSTERNOEN No components found for: ALDOSRENLCALC ALDOSTERNONE/RENIN ACTIVITY RATIO 20^ No results found for: 7442961R METANEPHRINE. No results found for: 0847843S NORMETANEPHRINE. No results found for: [id number] NORMETANEPHRINE INTERPRETATION LIVER Recent Labs Units 12/19/19 0612 12/18/19 0131 12/17/19 0501 12/16/19 1922 12/16/19 1358 ALBUMIN g/dL 2.6* 2.7* 2.7* 2.9* 3.5 TBIL mg/dL -- -- -- 0.4 0.6 SGOTAST U/L -- -- -- 21 33 SGPTALT U/L -- -- -- 25 29 TOTALPROTEIN g/dL -- -- -- 5.7* 6.7 No results for input(s): AMMONIA in the last 72 hours. No results found for: HEPB No results found for: HCVAB PANCREASE No Results for Requested Labs in Past 12 Months No Results for Requested Labs in Past 12 Months The Portions of this chart may have been created with voice recognition software. Occasional wrong-wordor ???sound-alike?? substitutions may have occurred due to the inherent limitations of voice recognition software. Read the chart carefully and recognize, using context, where these substitutions have occurred. ASSESMENT patient admitted with Hospital with weakness and fatigue and patient was also not eating and drinking initially creatinine was 8.0 it did came down after hydration to 5 and I was consulted patient also had hypernatremia patient also had elevated lactic acid which is better now there was acidosis also Acute renal failure. Urine sodium is only 17, most likely secondary due to dehydration however chronic kidney disease progression is a possibility as well as obstructive uropathy with absence left kidney Patient may have underlying chronic kidney disease with a baseline creatinine of 1.6 to about 2.0 from care every the Acidosis. Hypernatremia. Possibility of UTI, possibility of sepsis, Gram-positive rods in the blood could be contamination possibility of UTI id consulted History of hypertension. History of CVA. History of proximal right humeral fracture. History of hypertension absent left kidney. Indeterminate bilateral renal masses Hydronephrosis right kidney, on ultrasound but negative on CT scan Mild hypernatremia: Patient is getting D5W for hydration purposes. Plan: Patient is maintaining good urine output, a total negative balance of 4.3 L she is still on IV fluid she is getting Zosyn, patient's serum creatinine is now down to 2.8 probably a baseline of 2 will repeat the renal panel in the morning. Orders I Authorized in the last 24 Hrs potassium chloride SA (KLORCON M) tablet 40 mEq ONCE Ur Protein/Creatinine Ratio ONE TIME dextrose 5 % solution CONTINUOUS Magnesium (Mg) Daily AM Draw for 3 Days ALEX SARMIENTO MD 12/19/2019 * Albaro Arevalo MD - 12/19/2019 9:23 AM CDT INPATIENT PROGRESS NOTE- HOSPITALIST Trisha Waite is a 69 y.o. female at Hospital Day (LOS: 2 days) Chief complaint moira Subjective: Pt is doing well Eating breakfast Objective: BP (!) 124/95 Comment: notified Tad RN Pulse 77 Temp 97 ??F (36.1 ??C) (Oral) Resp 18 Ht5' 6 (1.676 m) Wt 141 lb 12.8 oz (64.3 kg) SpO2 96% BMI 22.89 kg/m?? Intake/Output Summary (Last 24 hours) at 12/19/2019 0923 Last data filed at 12/19/2019 0802 Gross per 24 hour Intake 360 ml Output 2350 ml Net -1990 ml Physical Exam aao3 ctab rrrs12 abd soft,bs norm Skin warm and dry Active Scheduled and PRN meds aspirin, 81 mg, Daily HEParin (porcine), 5,000 Units, Q8H VARGHESE piperacillin-tazobactam, 3.375 g, Q12H dextrose, Last Rate: 100 mL/hr at 12/19/19 0529 ondansetron, 4 mg, Q4H PRN ondansetron, 4 mg, Q12H PRN vancomycin intermittent therapy, , PRN Lab Review CBC: Lab Results Component Value Date WBC 10.82 12/17/2019 RBC 4.42 12/17/2019 HEMOGLOBIN 13.5 12/17/2019 HEMATOCRIT 43.6 12/17/2019 PLATELETCNT 126 (L) 12/17/2019 CMP: Lab Results Component Value Date SODIUM 150 (H) 12/19/2019 POTASSIUM 4.1 12/19/2019 CHLORIDE 121 (H) 12/19/2019 CO2VEN 21 12/19/2019 ANIONGAP 12.1 12/19/2019 GLUCOSE 100 12/19/2019 BUN 55 (H) 12/19/2019 CREATININE 2.80 (H) 12/19/2019 BCRATIO8 20 12/19/2019 TOTALPROTEIN 5.7 (L) 12/16/2019 ALBUMIN 2.6 (L) 12/19/2019 CALCIUM 8.2 (L) 12/19/2019 TBIL 0.4 12/16/2019 SGPTALT 25 12/16/2019 ALKALINEPHO 82 12/16/2019 GFRNA 15 12/19/2019 GFRA 18 (L) 12/19/2019 No results for input(s): GLUCOSEPOCT in the last 72 hours. Labs/chart/meds and notes reviewed Pt is a 69 y/o female with a PMH of Depression, HTN, Ischemic Stroke and Displaced fx of proximal end of right humerus in 2019 who presented to the ED at [facility] in [place] for evaluation of weakness and fatigue since 12/14/19. Pt became more lethargic on yesterday and was unable to move or speak, so her son took her to the ED for further evaluation. While in the ED at [facility] in [place], pt had labs drawn and was found to have hypernatremia with a Sodium of 161. She had MOIRA with BUN of 161 and Cr of 8.06. Pt had lactic acid as high as 3.2. She also had urinalysis suggestive of UTI with WBCs and bacteria. She was given IV Ceftriaxone. She was also given 1 L sweetie us of NS and started on D5 0.45NS. Ingram catheter placed. Cultures taken. CXR nl and no acute findings mentioned on EKG; pt was in sinus tachy with mention of findings suggestive of possible old inferior [place]. CT head was negative for any acute abnormalities. Pt transferred over for further evaluation and management of MOIRA, Sepsis and hypernatremia. Pt did not require pressors. Labs repeated on arrival with slight improvement; Na of 156, Potassium of 4.3, BUN of 137 and Cr of 5.7. Lactic acid now2.7. Blood cultures at OSH showing grown of gram pos Rods. Consulted Nephrology and Infectious Disease. We Will continue with IVF and IV antibiotics and monitor sodium closely. ?? A/P 1. Possible Sepsis, Lactic acidosis, GPR in blood cx could be contamination. Urine looks infected. UTI with GNR. Ct with abx; improved. abx per ID ?? 2. MOIRA with significant azotemia but no clear signs of uremia : pt making urine. Cr was originally 8.06 on presentation to OSH. It looks mainly dehydration with low urine sodium. Ct with IVF and adjust accordingly. Mild right hydro noted in right side but no obvious cause/urology evaluated and pt can have MRI for renal masses further evaluation but nothing urgent. She continue to improve with IVF. ?? 3. Hypernatremia: Pt with Na of 161 at OSH. It is now 150. ?? 4. HTN, H/o CVA in 2019: Pt with resulting memory problems per son. She is at baseline mental status. BP on lower side of normal at 97/63. Pt asymptomatic; BP seems to recover now. We will start her BP meds gradually. 5. DVT pfx Discharge planning. ALBARO AREVALO MD 12/19/2019 9:23 AM CDT * Alex Sarmiento MD - 12/18/2019 6:09 PM CDT Images from the original note were not included. Renal Progress Note COMPLAINT patient denies of any symptoms Last Ventilator settings: SpO2: 96 % ortions of this chart may have been created with voice recognition software. Occasional wrong-word or ???sound-alike?? substitutions may have occurred due to the inherent limitations of voice recognition software. Read the chart carefully and recognize, using context, where these substitutions have occurred. Pending Labs Order Current Status Culture, Urine Preliminary result ELECTROLYTES Recent Labs Units 12/18/19 0131 12/17/19 0501 12/16/19 19212/16/19 1358 SODIUM mmol/L 153* 156* 154* 156* POTASSIUM mmol/L 3.4* 3.7 3.9 4.3 CHLORIDE mmol/L 125* 125* 126* 126* CO2VEN mmol/L 21 21 15* 18* ANIONGAP mmol/L 10.4 13.7 16.9 16.3 BUN mg/dL 94* 120* 129* 137* CREATININE mg/dL 3.80* 5.00* 5.30* 5.70* GFRA 12* 9* 8* 8* ALBUMIN g/dL 2.7* 2.7* 2.9* 3.5 ADJCA mg/dL 9.0 9.0 8.8 8.9 PHOSPHORUS mg/dL 3.4 3.9 -- 4.8* CALCIUM mg/dL 8.0* 8.0* 7.9* 8.5* MAGNESIUM mg/dL 2.4 2.5 -- 3.1* TBIL mg/dL -- -- 0.4 0.6 SGOTAST U/L -- -- 21 33 SGPTALT U/L -- -- 25 29 ALKALINEPHO U/L -- -- 82 93 No results found for: PARAT Pending Labs Order Current Status Culture, Urine Preliminary result CBC Recent Labs Units 12/17/19 0501 12/16/19 1358 WBC 10(3)/mcL 10.82 15.02* HEMOGLOBIN g/dL 13.5 16.1* HEMATOCRIT % 43.6 52.5* PLATELETCNT 10(3)/mcL 126* 162 No Results for Requested Labs in Past 12 Months No results found for: FOLAT No results found for: [id number] No results found for: TSH No results found for: T4FREE No components found for: T3FREE No results found for: OCCULTBLOOD BONE Comments No Results for Requested Labs in Past 12 MonthsIONIZED CALCIUM No results found for: [id number] VIT D 25 OH. No results found for: [id number] VIT D, 1-25,DIHYDROXY No results found for: CAQT CALCIUM 24 HOURS PROTEINURIA comments No results found for: [id number] No results found for: UPCRO Lab Results Component Value Date PROTEINRNUR 1+ (A) 12/16/2019 Lab Results Component Value Date URINERBC 2+ (A) 12/16/2019 URINERBC 0-5 12/16/2019 Pending Labs Order Current Status Culture, Urine Preliminary result VASCULITIS/GAMMOPATHY comments No results found for: LATASHA No results found for: DBLSTRDNAANTI DNA. No results found for: [id number] No results found for: [id number] No results found for: COMPLEMENTT, [id number], [id number] No results found for: ANCASC No results found for: ANCAIGG No results found for: ANCTTR No results found for: [id number] Meloperoxidase nl 0-19 No results found for: 3907171Z PR3 i.e serine proteiase nl 0-19 No results found for: 0682527G Anti Gbm No results found for: PROTUC, PALBUMIN, PALPHA1, PATHINTERP, BETA, GAMMAGLOB SPEP/UPEP. No results found for: [id number] LIGHT CHAIN. No results found for: [id number] LIGHT CHAIN. No results found for: [id number]/LAMBDA FREE LIGHTCHAIN RATIO. No results found for: [id number] TESTING Pending Labs Order Current Status Culture, Urine Preliminary result RENAL ULTRA SOUND Results for orders placed or performed during the hospital encounter of 12/16/19 US RENAL COMPLETE Collection Time: 12/16/19 8:10 PM Narrative EXAMINATION: US RENAL COMPLETE HPI: 61-year-old female with acute renal failure. COMPARISON: None available. TECHNIQUE: Complete renal ultrasound performed evaluation of the bladder obtained. FINDINGS: RIGHT KIDNEY:Right kidney is normal in size measuring 11.7 x 5.7 x 6.6 cm. There are intrarenal calculi present. Mild hydronephrosis is demonstrated. LEFT KIDNEY:Not visualized. BLADDER: Decompressed by a Ingram catheter. IMPRESSION Limited study demonstrating mild right hydronephrosis and multiple intrarenal calculi. Electronically signed by: Krystle Keller MD Date of Signature: 12/16/2019 20:38:58 ALLERGIC REACTION comments No results found for: SMEO Lab Results Component Value Date EOSINOPHILS 0.50 (H) 12/17/2019 VOLUME STATUS comments Lab Results Component Value Date SODIUMRNUR 17 12/16/2019 Lab Results Component Value Date CREATININEU 94.0 12/16/2019 Lab Results Component Value Date OSMOLALITYUR 448 12/16/2019 urine osmolallty Requested Number of Results for Past 12 Months Component Units 12/16/19 2059 CREATININEU mg/dL 94.0 OSMOLALITYUR mOsm/kg 448 No results found for: URICACID No results found for: BNP, BNPPOCT VANCOMYCIN LEVELS No Results for Requested Labs in Past 12 Months No results found for: VANCOMYCINTR N: 5-10 trough. [id number](VANCOMYCIN:3)@ Lab Results Component Value Date VANCOMYCIN 16 12/17/2019 N:5-40 RANDOM RHABDOMYOLYSIS comments No results found for: [id number] SERUM TODD No results found for: 2488013H URINE TODD No results found for: CPK DIARRHEA No results found for: CDIFFTOXIN, CDIFTB Current Inpatient/Outpatient Systemic Antibiotics Penicillin Combinations Start End piperacillin-tazobactam (ZOSYN) IVPB 3.375 g 12/17/2019 3.375 g, Intravenous, EVERY 12 HOURS @ 12.5 mL/hr, Renally adjusted for cr. Cl 10.1 TTP/HUS comments Requested Number of Results for Past 12 Months Component Units 12/17/19 0501 12/16/19 1358 PLATELETCNT 10(3)/mcL 126* 162 URINE comments Results for orders placed or performed during the hospital encounter of 12/16/19 Urinalysis Microscopic If Indicated Result Value Ref Range Status SPECIFIC GRAVITY 1.012 1.003 - 1.035 Final URINE PH 6.0 5.0 - 8.0 Final WBC ESTERASE 3+ (A) Negative Final NITRITE Negative Negative Final PROTEIN, RANDOM URINE 1+ (A) Negative Final URINE GLUCOSE, QUAL Negative Negative Final URINE KETONES Negative Negative Final UROBILINOGEN <2.0 <2.0 mg/dL Final URINE BILIRUBIN Negative Negative Final URINE BLOOD 2+ (A) Negative maribell/ul Final URINALYSIS COLOR Yellow Yellow Final URINALYSIS CLARITY Clear Clear Final WBC (Urine) 21-50 (A) 0-5, Negative /hpf Final URINE RBC'S 0-5 0-5, Negative, None /hpf Final BACTERIA, URINE Rare (A) None, Absent /hpf Final URINE MUCOUS Rare None, Rare, Few Final DM[facility] RENAL EPI CELLS Final URINE SPERM Final URINE TRICHOMONAS Final URINE YEAST Final Lab Results Component Value Date UWBC 21-50 (A) 12/16/2019 Lab Results Component Value Date ULEUK 3+ (A) 12/16/2019 Hospital Encounter on 12/16/19 Culture, Urine Specimen: Urine Result Value Ref Range CULTURE RESULTS NO GROWTH WITHIN 1 DAY Current Inpatient/Outpatient Systemic Antibiotics Penicillin Combinations Start End piperacillin-tazobactam (ZOSYN) IVPB 3.375 g 12/17/2019 3.375 g, Intravenous, EVERY 12 HOURS @ 12.5 mL/hr, Renally adjusted for cr. Cl 10.1 BONE come ends BONE Comments No Results for Requested Labs in Past 12 MonthsIONIZED CALCIUM No results found for: [id number] VIT D 25 OH. No results found for: 5533539N VIT D, 1-25,DIHYDROXY No results found for: CAQT CALCIUM 24 HOURS ABG BRIEFLAB@(PHARTERIAL:1,PO2ART:1,ATB9TRZ:1,CO2ART:1,O2ART:1)@ DIET Diet Orders (From admission, onward) Start Ordered 12/16/19 1700 Diet Cardiac Restrictions: Cardiac Prudent DIET EFFECTIVE NOW Question: Restrictions: Answer: Cardiac Prudent 12/16/19 1659 LABS RELATED TO DIET comments Recent Labs Units 12/18/19 0131 12/17/19 0501 12/16/19 1922 12/16/19 1358 POTASSIUM mmol/L 3.4* 3.7 3.9 4.3 PHOSPHORUS mg/dL 3.4 3.9 -- 4.8* MAGNESIUM mg/dL 2.4 2.5 -- 3.1* ADJCA mg/dL 9.0 9.0 8.8 8.9 ALBUMIN g/dL 2.7* 2.7* 2.9* 3.5 TACROLIMUS [id number](9970266B:3)@ @LABCRNT(FK506:3)@ SIROLIMUS: Examination General appearance:normal Eyes:normal Lungs: clear Heart: reg s1 an ds2. Abdomen: soft non tender Extremities:no edema Neurologic: EKG No results found. RADIOLOGY No results found for this or any previous visit. No results found for this or any previous visit. CULTURES BLOOD CULTURENo results found for this visit on 12/16/19. URINECULTURE Hospital Encounter on 12/16/19 Culture, Urine Specimen: Urine Result Value Ref Range CULTURE RESULTS NO GROWTH WITHIN 1 DAY SPUTUM CULTURE@CULTURERSLTS@ Current Inpatient/Outpatient Systemic Antibiotics Penicillin Combinations Start End piperacillin-tazobactam (ZOSYN) IVPB 3.375 g 12/17/2019 3.375 g, Intravenous, EVERY 12 HOURS @ 12.5 mL/hr, Renally adjusted for cr. Cl 10.1 INFECTION MARKERS Requested Number of Results for Past 12 Months Component Units 12/18/19 0131 12/17/19 1002 12/17/19 0820 12/17/19 0501 12/16/19192112/16/19 1358 PCT ng/mL 0.06 -- -- -- -- 0.12* -- 0.09 LACTICA mmol/L -- 2.4* 2.8* 1.4 < > 2.8* < > -- < > = values in this interval not displayed. Current Inpatient/Outpatient Systemic Antibiotics Penicillin Combinations Start End piperacillin-tazobactam (ZOSYN) IVPB 3.375 g 12/17/2019 3.375 g, Intravenous, EVERY 12 HOURS @ 12.5 mL/hr, Renally adjusted for cr. Cl 10.1 HYPERTENSION No results found for: CORTCORTISOL No components found for: RENINACTIVITY No results found for: [id number] ALDOSTERNOEN No components found for: ALDOSRENLCALC ALDOSTERNONE/RENIN ACTIVITY RATIO 20^ No results found for: [id number] METANEPHRINE. No results found for: 5955515T NORMETANEPHRINE. No results found for: [id number] NORMETANEPHRINE INTERPRETATION LIVER Recent Labs Units 12/18/19 0131 12/17/19 0501 12/16/19 19212/16/19 1358 ALBUMIN g/dL 2.7* 2.7* 2.9* 3.5 TBIL mg/dL -- -- 0.4 0.6 SGOTAST U/L -- -- 21 33 SGPTALT U/L -- -- 25 29 TOTALPROTEIN g/dL -- -- 5.7* 6.7 No results for input(s): AMMONIA in the last 72 hours. No results found for: HEPB No results found for: HCVAB PANCREASE No Results for Requested Labs in Past 12 Months No Results for Requested Labs in Past 12 Months The Portions of this chart may have been created with voice recognition software. Occasional wrong-wordor ???sound-alike?? substitutions may have occurred due to the inherent limitations of voice recognition software. Read the chart carefully and recognize, using context, where these substitutions have occurred. ASSESMENT patient admitted with Hospital with weakness and fatigue and patient was also not eating and drinking initially creatinine was 8.0 it did came down after hydration to 5 and I was consulted patient also had hypernatremia patient also had elevated lactic acid which is better now there was acidosis also Acute renal failure. Urine sodium is only 17, most likely secondary due to dehydration however chronic kidney disease progression is a possibility as well as obstructive uropathy with absence left kidney Patient may have underlying chronic kidney disease with a baseline creatinine of 1.6 to about 2.0 from care every the Acidosis. Hypernatremia. Possibility of UTI, possibility of sepsis, Gram-positive rods in the blood could be contamination possibility of UTI id consulted History of hypertension. History of CVA. History of proximal right humeral fracture. History of hypertension absent left kidney. Indeterminate bilateral renal masses Hydronephrosis right kidney, on ultrasound but negative on CT scan Plan: Son is aware of the chronic kidney disease, and they have been following up with the slate splitting supervisor as a outpatient. Patient does have hypernatremia and we are hydrating the D5W, hypokalemia we will replace the potassium azotemia probably secondary due to renal failure, patient does have a proteinuria and hematuria. Orders I Authorized in the last 24 Hrs dextrose 5 % solution CONTINUOUS Magnesium (Mg) Daily AM Draw for 3 Days ALEX SARMIENTO MD 12/18/2019 * Brenda Oseguera APN, C.O.D. CLERK - 12/18/2019 1:04 PM CDT Images from the original note were not included. INFECTIOUS DISEASE PROGRESS NOTE GLADYS MADDEN CNP, MD FACP DATE OF VISIT 12/18/2019 TIME OF VISIT 1:04 PM CDT Trisha Waite is seen in follow-up for probable sepsis, bacteremia, Gram- positive rods so far, and complicated urinary tract infection, culture with gram-negative rods so far. Patient also has acute kidney injury and is being followed by Nephrology Services. Patient was found to have some mild hyd ronephrosis of the right kidney and intrarenal calculi. Patient underwent CT abdomen pelvis and wasfound to have possible indeterminate renal masses and Urology has been consulted. At time of visit today, patient is seen resting in the chair comfortably in no acute distress. Patient reports that overall she feels improved and doing well. Patient's son is present during time of visit today. Patient reports improving right flank pain. She continues to have Ingram catheter with clear yellow urine in the bag denies any issues. Patient currently denies fever, chills, diarrhea, shortness of breath, cough or rash. Patient does report that she had some nausea and a 1 emesis this morning. Intake and output reviewed the negative net fluid balance of 2 L since admission and 2.8 L of urinary output has been documented last 24 hours. Patient is currently hemodynamically stable and afebrile. The rest review of systems is noncontributory. Current Inpatient/Outpatient Systemic Antibiotics Penicillin Combinations Start End piperacillin-tazobactam (ZOSYN) IVPB 3.375 g 12/17/2019 3.375 g, Intravenous, EVERY 12 HOURS @ 12.5 mL/hr, Renally adjusted for cr. Cl 10.1 Current Facility-Administered Medications: ??? aspirin chewable tablet 81 mg, 81 mg, Oral, Daily, Lissette Saul MD, 81 mg at 12/18/19 0821 ??? dextrose 5 % solution, , Intravenous, Continuous, Alex Sarmiento MD, Last Rate: 100 mL/hr at1 0100 ??? HEParin (porcine) injection 5,000 Units, 5,000 Units, Subcutaneous, Q8H [facility], Lissette Saul MD, 5,000 Units at 12/18/19 0821 ??? ondansetron (ZOFRAN-ODT) disintegrating tablet 4 mg, 4 mg, Oral, Q12H PRN OR ondansetron (ZOFRAN) injection 4 mg, 4 mg, Intravenous, Q12H PRN, Lissette Saul MD, 4 mg at 12/18/19 1045 ??? piperacillin-tazobactam (ZOSYN) IVPB 3.375 g, 3.375 g, Intravenous, Q12H, Albaro Arevalo MD, Last Rate: 12.5 mL/hr at 12/18/19821, 3.375 g at 12/18/19821 ??? VANCOMYCIN INTERMITTENT THERAPY, , Miscellaneous, PRN, Lissette Saul MD VITAL SIGNS Vitals: 12/17/19 0649 12/17/19 1024 12/18/19 0200 12/18/19 0700 BP: 129/70 97/64 138/76 133/81 Pulse: 61 82 70 67 Resp: Temp: 97.7 ??F (36.5 ??C) 98.1 ??F (36.7 ??C) 97.8 ??F (36.6 ??C) 98.1 ??F (36.7 ??C) TempSrc: Oral Axillary Oral SpO2: 95% 92% 94% 96% Weight: Height: Patient Vitals for the past 24 hrs (Last 4 readings): Temp 12/18/19 0700 98.1 ??F (36.7 ??C) 12/18/19 0200 97.8 ??F (36.6 ??C) Patient Lines/Drains/Airways Status Active LDAs Name: Placement date: Placement time: Site: Days: Urethral Catheter 12/15/19 16 12/15/19 -- 3 Peripheral IV Line - Single Lumen 12/16/19 basilic vein (medial side of arm), right 22 gauge 12/16/19 -- 2 Peripheral IV Line - Single Lumen 12/16/19 median cubital vein (antecubital fossa), left 22 gauge 12/16/19 -- 2 PHYSICAL EXAMINATION GENERAL: Pleasant female, awake, alert, and in no acute distress. SKIN: No rash, no ecchymosis or petechiae. EYES: Sclerae anicteric. ENT: Oral mucosa moist, no exudate, no thrush. NECK: Supple, no lymphadenopathy, no JVD. LUNGS: Clear to auscultation, no wheeze, no rhonchi. HEART: S1, S2 regular, soft murmur or rub. ABDOMEN: Soft, not tender, not distended, no hepatosplenomegaly. BACK: Positive right CVA tenderness, no vertebral tenderness. EXTREMITIES: No edema, no cyanosis. MUSCULOSKELETAL: No joint effusion, swelling or tenderness. NEUROLOGIC: Awake, alert and oriented x 3, previous stroke with memory recall deficit /GI: Ingram catheter with clear yellow urine in the bag LABORATORY DATA Recent Labs Units 12/17/19 0501 12/16/19 1358 WBC 10(3)/mcL 10.82 15.02* HEMOGLOBIN g/dL 13.5 16.1* HEMATOCRIT % 43.6 52.5* PLATELETCNT 10(3)/mcL 126* 162 MCV fL 98.6 100.0 Recent Labs Units 12/18/19 0131 12/17/19 0501 12/16/19 1922 12/16/19 1358 SODIUM mmol/L 153* 156* 154* 156* POTASSIUM mmol/L 3.4* 3.7 3.9 4.3 CHLORIDE mmol/L 125* 125* 126* 126* CO2VEN mmol/L 21 21 15* 18* ANIONGAP mmol/L 10.4 13.7 16.9 16.3 GLUCOSE mg/dL 107 117* 224* 142* BUN mg/dL 94* 120* 129* 137* CREATININE mg/dL 3.80* 5.00* 5.30* 5.70* BCRATIO8 ratio 25* 24* 24* 24* TOTALPROTEIN g/dL -- -- 5.7* 6.7 ALBUMIN g/dL 2.7* 2.7* 2.9* 3.5 CALCIUM mg/dL 8.0* 8.0* 7.9* 8.5* TBIL mg/dL -- -- 0.4 0.6 SGOTAST U/L -- -- 21 33 SGPTALT U/L -- -- 25 29 ALKALINEPHO U/L -- -- 82 93 GFRNA 10 8 7 7 GFRA 12* 9* 8* 8* Lab Results Component Value Date CRP 6.0 (H) 12/18/2019 Lab Results Component Value Date LACTICA 2.4 (H) 12/17/2019 LACTICA 2.8 (H) 12/17/2019 LACTICA 1.4 12/17/2019 Lab Results Component Value Date PCT 0.06 12/18/2019 PCT 0.12 (H) 12/16/2019 PCT 0.09 12/16/2019 Lab Results Component Value Date VANCOMYCIN 16 12/17/2019 Recent Labs Units 12/16/19 1550 PHARTERIAL 7.34* LKN4BLN mmHg 30* PO2ART mmHg 64* O2ART % 92* 92.8* MICROBIOLOGY Microbiology Results for this Admission Procedure Component Value Units Date/Time Culture, Urine [[id number]] Collected: 12/16/192058 Order Status: Completed Specimen: Urine Updated: 12/18/19 0729 CULTURE RESULTS NO GROWTH WITHIN 1 DAY IMPRESSION Probable Sepsis, resolved Elevated procalcitonin, improving ?Bacteremia, Gram-positive rods so far Complicated urinary tract infection Urine culture greater than 100,000 CFU-mL gram-negative rods so far Lactic acidosis Leukocytosis, resolved, resolved MOIRA, elevated creatinine ?Right hydronephrosis on ultra sound, not identified on CT Right intrarenal calculi, non obstructing Right renal masses Hypernatremia, improving Metabolic encephalopathy, resolved Multiple medical problems Depression, stroke with memory recall deficit RECOMMENDATIONS Continue IV Zosyn 3.375 g every 8 hours Continue IV vancomycin per pharmacy protocol Vancomycin random level later today Will monitor renal function closely Urine culture obtained on 12/16/2019, no growth so far. Urine culture obtained on 12/15/2019 at [facility], greater than 100,000 gram-negative rods so far. Blood culture obtained on 12/07/2019 at [facility], Gram-positive rods so far x2. Called [facility] today and at this time no update on blood or urine cultures. When discussing patient's history with her son at time of visit today he reports that patient had aimplantable loop recorder placed earlier this year due to previous history of embolic stroke of unknown source. Patient follows with electrophysiology Clinic at [facility]. May consider echocardiogram in the presence of bacteremia to rule out endocarditis. Will order repeat blood cultures for tomorrow morning. Treatment plan was discussed with the patient and her son in detail and questions answered. They seems to comprehend well and are appreciative of care. Discussed with nursing staff. Will follow. BRENDA OSEGUERA APN, SARAH; 12/18/2019, 1:04 PM CDT Cosigned by Giovanny Corona MD at 12/13/2021 2:50 PM CDT * Lefty Ley MD - 12/18/2019 10:20 AM CDT INPATIENT PROGRESS NOTE- HOSPITALIST Trisha Waite is a 69 y.o. female at Hospital Day (LOS: 1 day) Chief complaint moira Subjective: Patient seen today son on bedside I explained the current situation plan is to have Urology come see the patient Objective: BP 133/81 Pulse 67 Temp 98.1 ??F (36.7 ??C) (Oral) Resp 18 Ht 5' 6 (1.676 m) Wt 141 lb 12.8 oz (64.3 kg) SpO2 96% BMI 22.89 kg/m?? Intake/Output Summary (Last 24 hours) at 12/18/2019 1020 Last data filed at 12/18/2019 0600 Gross per 24 hour Intake 120 ml Output 2175 ml Net -2055 ml Physical Exam aao3 ctab [id number] abd soft,bs norm Skin warm and dry Active Scheduled and PRN meds aspirin, 81 mg, Daily HEParin (porcine), 5,000 Units, Q8H VARGHESE piperacillin-tazobactam, 3.375 g, Q12H dextrose, Last Rate: 100 mL/hr at 12/18/19 0100 ondansetron, 4 mg, Q12H PRN Or ondansetron, 4 mg, Q12H PRN vancomycin intermittent therapy, , PRN Lab Review CBC: Lab Results Component Value Date WBC 10.82 12/17/2019 RBC 4.42 12/17/2019 HEMOGLOBIN 13.5 12/17/2019 HEMATOCRIT 43.6 12/17/2019 PLATELETCNT 126 (L) 12/17/2019 CMP: Lab Results Component Value Date SODIUM 153 (H) 12/18/2019 POTASSIUM 3.4 (L) 12/18/2019 CHLORIDE 125 (H) 12/18/2019 CO2VEN 21 12/18/2019 ANIONGAP 10.4 12/18/2019 GLUCOSE 107 12/18/2019 BUN 94 (H) 12/18/2019 CREATININE 3.80 (H) 12/18/2019 BCRATIO8 25 (H) 12/18/2019 TOTALPROTEIN 5.7 (L) 12/16/2019 ALBUMIN 2.7 (L) 12/18/2019 CALCIUM 8.0 (L) 12/18/2019 TBIL 0.4 12/16/2019 SGPTALT 25 12/16/2019 ALKALINEPHO 82 12/16/2019 GFRNA 10 12/18/2019 GFRA 12 (L) 12/18/2019 No results for input(s): GLUCOSEPOCT in the last 72 hours. Labs/chart/meds and notes reviewed Pt is a 69 y/o female with a PMH of Depression, HTN, Ischemic Stroke and Displaced fx of proximal end of right humerus in 2018 who presented to the ED at [facility] in [place] for evaluation of weakness and fatigue since 12/14/19. Pt became more lethargic on yesterday and was unable to move or speak, so her son took her to the ED for further evaluation. While in the ED at [facility] in [place], pt had labs drawn and was found to have hypernatremia with a Sodium of 161. She had MOIRA with BUN of 161 and Cr of 8.06. Pt had lactic acid as high as 3.2. She also had urinalysis suggestive of UTI with WBCs and bacteria. She was given IV Ceftriaxone. She was also given 1 L sweetie us of NS and started on D5 0.45NS. Ingram catheter placed. Cultures taken. CXR nl and no acute findings mentioned on EKG; pt was in sinus tachy with mention of findings suggestive of possible old inferior [place]. CT head was negative for any acute abnormalities. Pt transferred over for further evaluation and management of MOIRA, Sepsis and hypernatremia. Pt did not require pressors. Labs repeated on arrival with slight improvement; Na of 156, Potassium of 4.3, BUN of 137 and Cr of 5.7. Lactic acid now2.7. Blood cultures at OSH showing grown of gram pos Rods. Consulted Nephrology and Infectious Disease. We Will continue with IVF and IV antibiotics and monitor sodium closely. ?? A/P 1. Possible Sepsis, Lactic acidosis, GPR in blood cx could be contamination. Urine looks infected. UTI. Ct with abx; ID consulted ?? 2. MOIRA on CKD Dehydration vs obstructive uropathy Nephrology of poor CT order Recommend urology evaluation ?? 3. Hypernatremia: Pt with Na of 161 at OSH. It is now 153. ?? 4. HTN, H/o CVA in 2019: Pt with resulting memory problems per son. She is at baseline mental status. BP on lower side of normal at 97/63. Pt asymptomatic - hold antihypertensives for now given low BP: pt on ASA 81 mg, Metoprolol 50 mg daily and Amlodipine 10 mg daily at home - pt not on statin; son states her cholesterol has always been very low 5. DVT pfx Dispo: Urology consult placed * Alex Sarmiento MD - 12/18/2019 9:03 AM CDT Images from the original note were not included. Renal Progress Note COMPLAINT Last Ventilator settings: SpO2: 96 % Portions of this chart may have been created with voice recognition software. Occasional wrong-wordor ???sound-alike?? substitutions may have occurred due to the inherent limitations of voice recognition software. Read the chart carefully and recognize, using context, where these substitutions have occurred. Pending Labs Order Current Status Culture, Urine Preliminary result ELECTROLYTES Recent Labs Units 12/18/19 0131 12/17/19 0501 12/16/19 1922 12/16/19 1358 SODIUM mmol/L 153* 156* 154* 156* POTASSIUM mmol/L 3.4* 3.7 3.9 4.3 CHLORIDE mmol/L 125* 125* 126* 126* CO2VEN mmol/L 21 21 15* 18* ANIONGAP mmol/L 10.4 13.7 16.9 16.3 BUN mg/dL 94* 120* 129* 137* CREATININE mg/dL 3.80* 5.00* 5.30* 5.70* GFRA 12* 9* 8* 8* ALBUMIN g/dL 2.7* 2.7* 2.9* 3.5 ADJCA mg/dL 9.0 9.0 8.8 8.9 PHOSPHORUS mg/dL 3.4 3.9 -- 4.8* CALCIUM mg/dL 8.0* 8.0* 7.9* 8.5* MAGNESIUM mg/dL 2.4 2.5 -- 3.1* TBIL mg/dL -- -- 0.4 0.6 SGOTAST U/L -- -- 21 33 SGPTALT U/L -- -- 25 29 ALKALINEPHO U/L -- -- 82 93 No results found for: PARAT Pending Labs Order Current Status Culture, Urine Preliminary result CBC Recent Labs Units 12/17/19 0501 12/16/19 1358 WBC 10(3)/mcL 10.82 15.02* HEMOGLOBIN g/dL 13.5 16.1* HEMATOCRIT % 43.6 52.5* PLATELETCNT 10(3)/mcL 126* 162 No Results for Requested Labs in Past 12 Months No results found for: FOLAT No results found for: [id number] No results found for: TSH No results found for: T4FREE No components found for: T3FREE No results found for: OCCULTBLOOD BONE Comments No Results for Requested Labs in Past 12 MonthsIONIZED CALCIUM No results found for: [id number] VIT D 25 OH. No results found for: [id number] VIT D, 1-25,DIHYDROXY No results found for: CAQT CALCIUM 24 HOURS PROTEINURIA comments No results found for: [id number] No results found for: UPCRO Lab Results Component Value Date PROTEINRNUR 1+ (A) 12/16/2019 Lab Results Component Value Date URINERBC 2+ (A) 12/16/2019 URINERBC 0-5 12/16/2019 Pending Labs Order Current Status Culture, Urine Preliminary result VASCULITIS/GAMMOPATHY comments No results found for: LATASHA No results found for: DBLSTRDNAANTI DNA. No results found for: [id number] No results found for: [id number] No results found for: COMPLEMENTT, [id number], [id number] No results found for: ANCASC No results found for: ANCAIGG No results found for: ANCTTR No results found for: [id number] Meloperoxidase nl 0-19 No results found for: [id number] PR3 i.e serine proteiase nl 0-19 No results found for: 4736053N Anti Gbm No results found for: PROTUC, PALBUMIN, PALPHA1, PATHINTERP, BETA, GAMMAGLOB SPEP/UPEP. No results found for: [id number] LIGHT CHAIN. No results found for: [id number] LIGHT CHAIN. No results found for: [id number]/LAMBDA FREE LIGHTCHAIN RATIO. No results found for: [id number] TESTING Pending Labs Order Current Status Culture, Urine Preliminary result RENAL ULTRA SOUND Results for orders placed or performed during the hospital encounter of 12/16/19 US RENAL COMPLETE Collection Time: 12/16/19 8:10 PM Narrative EXAMINATION: US RENAL COMPLETE HPI: 61-year-old female with acute renal failure. COMPARISON: None available. TECHNIQUE: Complete renal ultrasound performed evaluation of the bladder obtained. FINDINGS: RIGHT KIDNEY:Right kidney is normal in size measuring 11.7 x 5.7 x 6.6 cm. There are intrarenal calculi present. Mild hydronephrosis is demonstrated. LEFT KIDNEY:Not visualized. BLADDER: Decompressed by a Ingram catheter. IMPRESSION Limited study demonstrating mild right hydronephrosis and multiple intrarenal calculi. Electronically signed by: Krystle Keller MD Date of Signature: 12/16/2019 20:38:58 ALLERGIC REACTION comments No results found for: SMEO Lab Results Component Value Date EOSINOPHILS 0.50 (H) 12/17/2019 VOLUME STATUS comments Lab Results Component Value Date SODIUMRNUR 17 12/16/2019 Lab Results Component Value Date CREATININEU 94.0 12/16/2019 Lab Results Component Value Date OSMOLALITYUR 448 12/16/2019 urine osmolallty Requested Number of Results for Past 12 Months Component Units 12/16/192058 CREATININEU mg/dL 94.0 OSMOLALITYUR mOsm/kg 448 No results found for: URICACID No results found for: BNP, BNPPOCT VANCOMYCIN LEVELS No Results for Requested Labs in Past 12 Months No results found for: VANCOMYCINTR N: 5-10 trough. [id number](VANCOMYCIN:3)@ Lab Results Component Value Date VANCOMYCIN 16 12/17/2019 N:5-40 RANDOM RHABDOMYOLYSIS comments No results found for: [id number] SERUM TODD No results found for: 4513991V URINE TODD No results found for: CPK DIARRHEA No results found for: CDIFFTOXIN, CDIFTB Current Inpatient/Outpatient Systemic Antibiotics Penicillin Combinations Start End piperacillin-tazobactam (ZOSYN) IVPB 3.375 g 12/17/2019 3.375 g, Intravenous, EVERY 12 HOURS @ 12.5 mL/hr, Renally adjusted for cr. Cl 10.1 TTP/HUS comments Requested Number of Results for Past 12 Months Component Units 12/17/19 0501 12/16/19 1358 PLATELETCNT 10(3)/mcL 126* 162 URINE comments Results for orders placed or performed during the hospital encounter of 12/16/19 Urinalysis Microscopic If Indicated Result Value Ref Range Status SPECIFIC GRAVITY 1.012 1.003 - 1.035 Final URINE PH 6.0 5.0 - 8.0 Final WBC ESTERASE 3+ (A) Negative Final NITRITE Negative Negative Final PROTEIN, RANDOM URINE 1+ (A) Negative Final URINE GLUCOSE, QUAL Negative Negative Final URINE KETONES Negative Negative Final UROBILINOGEN <2.0 <2.0 mg/dL Final URINE BILIRUBIN Negative Negative Final URINE BLOOD 2+ (A) Negative maribell/ul Final URINALYSIS COLOR Yellow Yellow Final URINALYSIS CLARITY Clear Clear Final WBC (Urine) 21-50 (A) 0-5, Negative /hpf Final URINE RBC'S 0-5 0-5, Negative, None /hpf Final BACTERIA, URINE Rare (A) None, Absent /hpf Final URINE MUCOUS Rare None, Rare, Few Final DMH RENAL EPI CELLS Final URINE SPERM Final URINE TRICHOMONAS Final URINE YEAST Final Lab Results Component Value Date UWBC 21-50 (A) 12/16/2019 Lab Results Component Value Date ULEUK 3+ (A) 12/16/2019 Hospital Encounter on 12/16/19 Culture, Urine Specimen: Urine Result Value Ref Range CULTURE RESULTS NO GROWTH WITHIN 1 DAY Current Inpatient/Outpatient Systemic Antibiotics Penicillin Combinations Start End piperacillin-tazobactam (ZOSYN) IVPB 3.375 g 12/17/2019 3.375 g, Intravenous, EVERY 12 HOURS @ 12.5 mL/hr, Renally adjusted for cr. Cl 10.1 BONE come ends BONE Comments No Results for Requested Labs in Past 12 MonthsIONIZED CALCIUM No results found for: [id number] VIT D 25 OH. No results found for: [id number] VIT D, 1-25,DIHYDROXY No results found for: CAQT CALCIUM 24 HOURS ABG BRIEFLAB@(PHARTERIAL:1,PO2ART:1,MNI0OTD:1,CO2ART:1,O2ART:1)@ DIET Diet Orders (From admission, onward) Start Ordered 12/16/19 1700 Diet Cardiac Restrictions: Cardiac Prudent DIET EFFECTIVE NOW Question: Restrictions: Answer: Cardiac Prudent 12/16/19 1659 LABS RELATED TO DIET comments Recent Labs Units 12/18/19 0131 12/17/19 0501 12/16/19 1922 12/16/19 1358 POTASSIUM mmol/L 3.4* 3.7 3.9 4.3 PHOSPHORUS mg/dL 3.4 3.9 -- 4.8* MAGNESIUM mg/dL 2.4 2.5 -- 3.1* ADJCA mg/dL 9.0 9.0 8.8 8.9 ALBUMIN g/dL 2.7* 2.7* 2.9* 3.5 TACROLIMUS [id number]:3)@ @LABCRNT(FK506:3)@ SIROLIMUS: Examination General appearance:normal Eyes:normal Lungs: clear Heart: reg s1 an ds2. Abdomen: soft non tender Extremities:no edema Neurologic: EKG No results found. RADIOLOGY No results found for this or any previous visit. No results found for this or any previous visit. CULTURES BLOOD CULTURENo results found for this visit on 12/16/19. URINECULTURE Hospital Encounter on 12/16/19 Culture, Urine Specimen: Urine Result Value Ref Range CULTURE RESULTS NO GROWTH WITHIN 1 DAY SPUTUM CULTURE@CULTURERSLTS@ Current Inpatient/Outpatient Systemic Antibiotics Penicillin Combinations Start End piperacillin-tazobactam (ZOSYN) IVPB 3.375 g 12/17/2019 3.375 g, Intravenous, EVERY 12 HOURS @ 12.5 mL/hr, Renally adjusted for cr. Cl 10.1 INFECTION MARKERS Requested Number of Results for Past 12 Months Component Units 12/18/19 0131 12/17/19 1002 12/17/19 0820 12/17/19 0501 12/16/19 1922 12/16/19 1358 PCT ng/mL 0.06 -- -- -- -- 0.12* -- 0.09 LACTICA mmol/L -- 2.4* 2.8* 1.4 < > 2.8* < > -- < > = values in this interval not displayed. Current Inpatient/Outpatient Systemic Antibiotics Penicillin Combinations Start End piperacillin-tazobactam (ZOSYN) IVPB 3.375 g 12/17/2019 3.375 g, Intravenous, EVERY 12 HOURS @ 12.5 mL/hr, Renally adjusted for cr. Cl 10.1 HYPERTENSION No results found for: CORTCORTISOL No components found for: RENINACTIVITY No results found for: [id number] ALDOSTERNOEN No components found for: ALDOSRENLCALC ALDOSTERNONE/RENIN ACTIVITY RATIO 20^ No results found for: 1115555B METANEPHRINE. No results found for: 1798379Z NORMETANEPHRINE. No results found for: [id number] NORMETANEPHRINE INTERPRETATION LIVER Recent Labs Units 12/18/19 0131 12/17/19 0501 12/16/19 1922 12/16/19 1358 ALBUMIN g/dL 2.7* 2.7* 2.9* 3.5 TBIL mg/dL -- -- 0.4 0.6 SGOTAST U/L -- -- 21 33 SGPTALT U/L -- -- 25 29 TOTALPROTEIN g/dL -- -- 5.7* 6.7 No results for input(s): AMMONIA in the last 72 hours. No results found for: HEPB No results found for: HCVAB PANCREASE No Results for Requested Labs in Past 12 Months No Results for Requested Labs in Past 12 Months The Portions of this chart may have been created with voice recognition software. Occasional wrong-wordor ???sound-alike?? substitutions may have occurred due to the inherent limitations of voice recognition software. Read the chart carefully and recognize, using context, where these substitutions have occurred. ASSESMENT patient admitted with Hospital with weakness and fatigue and patient was also not eating and drinking initially creatinine was 8.0 it did came down after hydration to 5 and I was consulted patient also had hypernatremia patient also had elevated lactic acid which is better now there was acidosis also Acute renal failure. Urine sodium is only 17, most likely secondary due to dehydration however chronic kidney disease progression is a possibility as well as obstructive uropathy with absence left kidney Patient may have underlying chronic kidney disease with a baseline creatinine of 1.6 to about 2.0 from care every the Acidosis. Hypernatremia. Possibility of UTI, possibility of sepsis, Gram-positive rods in the blood could be contamination possibility of UTI id consulted History of hypertension. History of CVA. History of proximal right humeral fracture. History of hypertension Atretic left kidney. Indeterminate bilateral renal masses Hydronephrosis right kidney, on ultrasound but negative on CT scan PLAN Patient at the current moment is getting good urine output creatinine is coming down, will keep hydrating pt. for bilaterall renal masses I would recommend urology consult Orders I Authorized in the last 24 Hrs dextrose 5 % solution CONTINUOUS CT ABDOMEN PELVIS W/O CONTRAST 1 TIME IMAGING Magnesium (Mg) Daily AM Draw for 3 Days dextrose 5 % 1,000 mL with sodium bicarbonate 100 mEq infusion CONTINUOUS, Status: Discontinued ALEX SARMIENTO MD 12/18/2019 * Alex Sarmiento MD - 12/17/2019 11:10 AM CDT Images from the original note were not included. Renal Progress Note COMPLAINT Last Ventilator settings: SpO2: 92 % Portions of this chart may have been created with voice recognition software. Occasional wrong-wordor ???sound-alike?? substitutions may have occurred due to the inherent limitations of voice recognition software. Read the chart carefully and recognize, using context, where these substitutions have occurred. Pending Labs Order Current Status Culture, Urine In process ELECTROLYTES Recent Labs Units 12/17/19 0501 12/16/19 1922 12/16/19 1358 SODIUM mmol/L 156* 154* 156* POTASSIUM mmol/L 3.7 3.9 4.3 CHLORIDE mmol/L 125* 126* 126* CO2VEN mmol/L 21 15* 18* ANIONGAP mmol/L 13.7 16.9 16.3 BUN mg/dL 120* 129* 137* CREATININE mg/dL 5.00* 5.30* 5.70* GFRA 9* 8* 8* ALBUMIN g/dL 2.7* 2.9* 3.5 ADJCA mg/dL 9.0 8.8 8.9 PHOSPHORUS mg/dL 3.9 -- 4.8* CALCIUM mg/dL 8.0* 7.9* 8.5* MAGNESIUM mg/dL 2.5 -- 3.1* TBIL mg/dL -- 0.4 0.6 SGOTAST U/L -- 21 33 SGPTALT U/L -- 25 29 ALKALINEPHO U/L -- 82 93 No results found for: PARAT Pending Labs Order Current Status Culture, Urine In process CBC Recent Labs Units 12/17/19 0501 12/16/19 1358 WBC 10(3)/mcL 10.82 15.02* HEMOGLOBIN g/dL 13.5 16.1* HEMATOCRIT % 43.6 52.5* PLATELETCNT 10(3)/mcL 126* 162 No Results for Requested Labs in Past 12 Months No results found for: FOLAT No results found for: [id number] No results found for: TSH No results found for: T4FREE No components found for: T3FREE No results found for: OCCULTBLOOD BONE Comments No Results for Requested Labs in Past 12 MonthsIONIZED CALCIUM No results found for: [id number] VIT D 25 OH. No results found for: 9583914C VIT D, 1-25,DIHYDROXY No results found for: CAQT CALCIUM 24 HOURS PROTEINURIA comments No results found for: [id number] No results found for: UPCRO Lab Results Component Value Date PROTEINRNUR 1+ (A) 12/16/2019 Lab Results Component Value Date URINERBC 2+ (A) 12/16/2019 URINERBC 0-5 12/16/2019 Pending Labs Order Current Status Culture, Urine In process VASCULITIS/GAMMOPATHY comments No results found for: LATASHA No results found for: DBLSTRDNAANTI DNA. No results found for: [id number] No results found for: [id number] No results found for: COMPLEMENTT, [id number], [id number] No results found for: ANCASC No results found for: ANCAIGG No results found for: ANCTTR No results found for: [id number] Meloperoxidase nl 0-19 No results found for: 3738353F PR3 i.e serine proteiase nl 0-19 No results found for: 2747120C Anti Gbm No results found for: PROTUC, PALBUMIN, PALPHA1, PATHINTERP, BETA, GAMMAGLOB SPEP/UPEP. No results found for: [id number] LIGHT CHAIN. No results found for: [id number] LIGHT CHAIN. No results found for: [id number]/LAMBDA FREE LIGHTCHAIN RATIO. No results found for: [id number] TESTING Pending Labs Order Current Status Culture, Urine In process RENAL ULTRA SOUND Results for orders placed or performed during the hospital encounter of 12/16/19 US RENAL COMPLETE Collection Time: 12/16/19 8:10 PM Narrative EXAMINATION: US RENAL COMPLETE HPI: 61-year-old female with acute renal failure. COMPARISON: None available. TECHNIQUE: Complete renal ultrasound performed evaluation of the bladder obtained. FINDINGS: RIGHT KIDNEY:Right kidney is normal in size measuring 11.7 x 5.7 x 6.6 cm. There are intrarenal calculi present. Mild hydronephrosis is demonstrated. LEFT KIDNEY:Not visualized. BLADDER: Decompressed by a Ingram catheter. IMPRESSION Limited study demonstrating mild right hydronephrosis and multiple intrarenal calculi. Electronically signed by: Krystle Keller MD Date of Signature: 12/16/2019 20:38:58 ALLERGIC REACTION comments No results found for: SMEO Lab Results Component Value Date EOSINOPHILS 0.50 (H) 12/17/2019 VOLUME STATUS comments Lab Results Component Value Date SODIUMRNUR 17 12/16/2019 Lab Results Component Value Date CREATININEU 94.0 12/16/2019 Lab Results Component Value Date OSMOLALITYUR 448 12/16/2019 urine osmolallty Requested Number of Results for Past 12 Months Component Units 12/16/19 2059 CREATININEU mg/dL 94.0 OSMOLALITYUR mOsm/kg 448 No results found for: URICACID No results found for: BNP, BNPPOCT VANCOMYCIN LEVELS No Results for Requested Labs in Past 12 Months No results found for: VANCOMYCINTR N: 5-10 trough. YLSOSTV2EE(VANCOMYCIN:3)@ No results found for: VANCOMYCIN N:5-40 RANDOM RHABDOMYOLYSIS comments No results found for: 5780029K SERUM TODD No results found for: 8832170C URINE TODD No results found for: CPK DIARRHEA No results found for: CDIFFTOXIN, CDIFTB Current Inpatient/Outpatient Systemic Antibiotics Penicillin Combinations Start End piperacillin-tazobactam (ZOSYN) IVPB 3.375 g 12/16/2019 12/23/2019 3.375 g, Intravenous, EVERY 8 HOURS @ 12.5 mL/hr, Initial dose followed by (Piperacillin 4-5 gm) TTP/HUS comments Requested Number of Results for Past 12 Months Component Units 12/17/19 0501 12/16/19 1358 PLATELETCNT 10(3)/mcL 126* 162 URINE comments Results for orders placed or performed during the hospital encounter of 12/16/19 Urinalysis Microscopic If Indicated Result Value Ref Range Status SPECIFIC GRAVITY 1.012 1.003 - 1.035 Final URINE PH 6.0 5.0 - 8.0 Final WBC ESTERASE 3+ (A) Negative Final NITRITE Negative Negative Final PROTEIN, RANDOM URINE 1+ (A) Negative Final URINE GLUCOSE, QUAL Negative Negative Final URINE KETONES Negative Negative Final UROBILINOGEN <2.0 <2.0 mg/dL Final URINE BILIRUBIN Negative Negative Final URINE BLOOD 2+ (A) Negative maribell/ul Final URINALYSIS COLOR Yellow Yellow Final URINALYSIS CLARITY Clear Clear Final WBC (Urine) 21-50 (A) 0-5, Negative /hpf Final URINE RBC'S 0-5 0-5, Negative, None /hpf Final BACTERIA, URINE Rare (A) None, Absent /hpf Final URINE MUCOUS Rare None, Rare, Few Final DMH RENAL EPI CELLS Final URINE SPERM Final URINE TRICHOMONAS Final URINE YEAST Final Lab Results Component Value Date UWBC 21-50 (A) 12/16/2019 Lab Results Component Value Date ULEUK 3+ (A) 12/16/2019 Current Inpatient/Outpatient Systemic Antibiotics Penicillin Combinations Start End piperacillin-tazobactam (ZOSYN) IVPB 3.375 g 12/16/2019 12/23/2019 3.375 g, Intravenous, EVERY 8 HOURS @ 12.5 mL/hr, Initial dose followed by (Piperacillin 4-5 gm) BONE come ends BONE Comments No Results for Requested Labs in Past 12 MonthsIONIZED CALCIUM No results found for: 6991223N VIT D 25 OH. No results found for: 1210943Y VIT D, 1-25,DIHYDROXY No results found for: CAQT CALCIUM 24 HOURS ABG BRIEFLAB@(PHARTERIAL:1,PO2ART:1,TGN1PCZ:1,CO2ART:1,O2ART:1)@ DIET Diet Orders (From admission, onward) Start Ordered 12/16/19 1700 Diet Cardiac Restrictions: Cardiac Prudent DIET EFFECTIVE NOW Question: Restrictions: Answer: Cardiac Prudent 12/16/19 1659 LABS RELATED TO DIET comments Recent Labs Units 12/17/19 0501 12/16/19192112/16/19 1358 POTASSIUM mmol/L 3.7 3.9 4.3 PHOSPHORUS mg/dL 3.9 -- 4.8* MAGNESIUM mg/dL 2.5 -- 3.1* ADJCA mg/dL 9.0 8.8 8.9 ALBUMIN g/dL 2.7* 2.9* 3.5 TACROLIMUS JXKI2IR(3834479M:3)@ @LABCRNT(FK506:3)@ SIROLIMUS: Examination General appearance:normal Eyes:normal Lungs: clear Heart: reg s1 an ds2. Abdomen: soft non tender Extremities:no edema Neurologic: EKG No results found. RADIOLOGY No results found for this or any previous visit. No results found for this or any previous visit. CULTURES BLOOD CULTURENo results found for this visit on 12/16/19. URINECULTURE SPUTUM CULTURE@CULTURERSLTS@ Current Inpatient/Outpatient Systemic Antibiotics Penicillin Combinations Start End piperacillin-tazobactam (ZOSYN) IVPB 3.375 g 12/16/2019 12/23/2019 3.375 g, Intravenous, EVERY 8 HOURS @ 12.5 mL/hr, Initial dose followed by (Piperacillin 4-5 gm) INFECTION MARKERS Requested Number of Results for Past 12 Months Component Units 12/17/19 1002 12/17/19 0820 12/17/19 0501 12/16/19192112/16/19 1358 PCT ng/mL -- -- -- -- 0.12* -- 0.09 LACTICA mmol/L 2.4* 2.8* 1.4 < > 2.8* < > -- < > = values in this interval not displayed. Current Inpatient/Outpatient Systemic Antibiotics Penicillin Combinations Start End piperacillin-tazobactam (ZOSYN) IVPB 3.375 g 12/16/2019 12/23/2019 3.375 g, Intravenous, EVERY 8 HOURS @ 12.5 mL/hr, Initial dose followed by (Piperacillin 4-5 gm) HYPERTENSION No results found for: CORTCORTISOL No components found for: RENINACTIVITY No results found for: 7582657C ALDOSTERNOEN No components found for: ALDOSRENLCALC ALDOSTERNONE/RENIN ACTIVITY RATIO 20^ No results found for: 5423742A METANEPHRINE. No results found for: 1617955P NORMETANEPHRINE. No results found for: 3284889S NORMETANEPHRINE INTERPRETATION LIVER Recent Labs Units 12/17/19 0501 12/16/19 1922 12/16/19 1358 ALBUMIN g/dL 2.7* 2.9* 3.5 TBIL mg/dL -- 0.4 0.6 SGOTAST U/L -- 21 33 SGPTALT U/L -- 25 29 TOTALPROTEIN g/dL -- 5.7* 6.7 No results for input(s): AMMONIA in the last 72 hours. No results found for: HEPB No results found for: HCVAB PANCREASE No Results for Requested Labs in Past 12 Months No Results for Requested Labs in Past 12 Months The Portions of this chart may have been created with voice recognition software. Occasional wrong-wordor ???sound-alike?? substitutions may have occurred due to the inherent limitations of voice recognition software. Read the chart carefully and recognize, using context, where these substitutions have occurred. ASSESMENT patient admitted with Hospital with weakness and fatigue and patient was also not eating and drinking initially creatinine was 8.0 it did came down after hydration to 5 and I was consulted patient also had hypernatremia patient also had elevated lactic acid which is better now there was acidosis also Acute renal failure. Urine sodium is only 17, most likely secondary due to dehydration however chronic kidney disease progression is a possibility as well as obstructive uropathy with absence left kidney Patient may have underlying chronic kidney disease with a baseline creatinine of 1.6 to about 2.0 from care every the Acidosis. Hypernatremia. Possibility of UTI, possibility of sepsis, Gram-positive rods in the blood could be contamination possibility of UTI id consulted History of hypertension. History of CVA. History of proximal right humeral fracture. History of hypertension Atretic left kidney. Indeterminate bilateral renal masses Hydronephrosis right kidney, on ultrasound but negative on CT scan PLAN Patient has started to make good urine, at the current moment patient getting Zosyn and vancomycin for possibility of sepsis, Patient may have progressive chronic kidney disease since last year because she does not have left kidney and right is showing some mild hydronephrosis it may be possible that when the patient is dehydrated hydronephrosis may not be shown and I am going to do a CT scan without contrast it will alsoshow was if the left kidneys present on not. Patient acidosis is better I will change IV fluid hydra tion to D5W. I would recommend a urology evaluation for the indeterminate renal masses, there is no hydronephrosis seen on the right kidney Orders I Authorized in the last 24 Hrs Magnesium (Mg) Daily AM Draw for 3 Days Culture, Urine ONE TIME dextrose 5 % 1,000 mL with sodium bicarbonate 100 mEq infusion CONTINUOUS Adjusted Calcium *Samc ONE TIME dextrose 5 % solution CONTINUOUS, Status: Discontinued Ur Osmolality ONE TIME Ur Sodium (Na) Random ONE TIME Ur Creatinine Random ONE TIME US RENAL COMPLETE 1 TIME IMAGING Urinalysis Microscopic If Indicated ONE TIME CMP (Comprehensive Metabolic Panel) ONE TIME ALEX SARMIENTO MD 12/17/2019 * Albaro Arevalo MD - 12/17/2019 8:41 AM CDT INPATIENT PROGRESS NOTE- HOSPITALIST Trisha Waite is a 69 y.o. female at Hospital Day (LOS: 19 hours) Chief complaint moira Subjective: Pt is doing well Eating her breakfast Objective: BP 129/70 Pulse 61 Temp 97.7 ??F (36.5 ??C) (Oral) Resp 22 Ht 5' 6 (1.676 m) Wt 141 lb 12.8 oz (64.3 kg) SpO2 95% BMI 22.89 kg/m?? Intake/Output Summary (Last 24 hours) at 12/17/2019 0841 Last data filed at 12/17/2019 0702 Gross per 24 hour Intake 896 ml Output 1250 ml Net -354 ml Physical Exam aao3 ctab [id number] abd soft,bs norm Skin warm and dry Active Scheduled and PRN meds aspirin, 81 mg, Daily HEParin (porcine), 5,000 Units, Q8H VARGHESE piperacillin-tazobactam, 3.375 g, Q8H IV infusion builder, Last Rate: 100 mL/hr at 12/16/192029 ondansetron, 4 mg, Q12H PRN Or ondansetron, 4 mg, Q12H PRN vancomycin intermittent therapy, , PRN Lab Review CBC: Lab Results Component Value Date WBC 10.82 12/17/2019 RBC 4.42 12/17/2019 HEMOGLOBIN 13.5 12/17/2019 HEMATOCRIT 43.6 12/17/2019 PLATELETCNT 126 (L) 12/17/2019 CMP: Lab Results Component Value Date SODIUM 156 (HH) 12/17/2019 POTASSIUM 3.7 12/17/2019 CHLORIDE 125 (H) 12/17/2019 CO2VEN 21 12/17/2019 ANIONGAP 13.7 12/17/2019 GLUCOSE 117 (H) 12/17/2019 BUN 120 (H) 12/17/2019 CREATININE 5.00 (H) 12/17/2019 BCRATIO8 24 (H) 12/17/2019 TOTALPROTEIN 5.7 (L) 12/16/2019 ALBUMIN 2.7 (L) 12/17/2019 CALCIUM 8.0 (L) 12/17/2019 TBIL 0.4 12/16/2019 SGPTALT 25 12/16/2019 ALKALINEPHO 82 12/16/2019 GFRNA 8 12/17/2019 GFRA 9 (L) 12/17/2019 No results for input(s): GLUCOSEPOCT in the last 72 hours. Labs/chart/meds and notes reviewed Pt is a 69 y/o female with a PMH of Depression, HTN, Ischemic Stroke and Displaced fx of proximal end of right humerus in 2019 who presented to the ED at [facility] in [place] for evaluation of weakness and fatigue since 12/14/19. Pt became more lethargic on yesterday and was unable to move or speak, so her son took her to the ED for further evaluation. While in the ED at [facility] in [place], pt had labs drawn and was found to have hypernatremia with a Sodium of 161. She had MOIRA with BUN of 161 and Cr of 8.06. Pt had lactic acid as high as 3.2. She also had urinalysis suggestive of UTI with WBCs and bacteria. She was given IV Ceftriaxone. She was also given 1 L sweetie us of NS and started on D5 0.45NS. Ingram catheter placed. Cultures taken. CXR nl and no acute findings mentioned on EKG; pt was in sinus tachy with mention of findings suggestive of possible old inferior [place]. CT head was negative for any acute abnormalities. Pt transferred over for further evaluation and management of MOIRA, Sepsis and hypernatremia. Pt did not require pressors. Labs repeated on arrival with slight improvement; Na of 156, Potassium of 4.3, BUN of 137 and Cr of 5.7. Lactic acid now2.7. Blood cultures at OSH showing grown of gram pos Rods. Consulted Nephrology and Infectious Disease. We Will continue with IVF and IV antibiotics and monitor sodium closely. ?? A/P 1. Possible Sepsis, Lactic acidosis, GPR in blood cx could be contamination. Urine looks infected. UTI. Ct with abx; ID consulted by admitting doctor. ?? 2. MOIRA with significant azotemia but no clear signs of uremia : pt making urine. She has a Cr of 5.7 now. Cr was originally 8.06 on presentation to OSH. It looks mainly dehydration with low urine sodium. Ct with IVF and adjust accordingly. Mild right hydro noted in right side but no obvious cause ?? 3. Hypernatremia: Pt with Na of 161 at OSH. It is now 156. May be need to add K to IVF ?? 4. HTN, H/o CVA in 2019: Pt with resulting memory problems per son. She is at baseline mental status. BP on lower side of normal at 97/63. Pt asymptomatic - hold antihypertensives for now given low BP: pt on ASA 81 mg, Metoprolol 50 mg daily and Amlodipine 10 mg daily at home - pt not on statin; son states her cholesterol has always been very low 5. DVT pfx Ok to floor ALBARO AREVALO MD 12/17/2019 8:41 AM CDT documented in this encounter H&P Notes * Lissette Saul MD - 12/16/2019 11:24 AM CDT ADMISSION HISTORY & PHYSICAL Admit Date: (Not on file) Attending: Lissette Saul,* Note Author: LISSETTE SAUL MD PCP: JASSON VALDIVIA MD Subjective: CC: Fatigue, weakness HPI: Pt is a 69 y/o female with a PMH of Depression, HTN, Ischemic Stroke with resulting memory problems and Displaced fx of proximal end of right humerus in 2019 who presented to the ED at [facility] in [place] for evaluation of weakness and fatigue since 12/14/19. Pt does recall having some dysuria, but she states that she does not recall the last time she urinated. Pt denies any chest pain or SOB. No fevers, chills or sweats. No nausea, vomiting or abdominal pain. No diarrhea. Spoke with son, and he states that on the night of 12/14/19, he noticed that his mother was more tired.He checked on her the next day and she was still tired. He attributed her fatigue to her not takingher Gabapentin, so he went and had her prescription filled. She became more lethargic and was unable to move or speak, so he took her to the ED for further evaluation. While in the ED at [facility] in [place], pt had labs drawn and was found to have hypernatremia with a Sodium of 161. She had MOIRA with BUN of 161 and Cr of 8.06. Pt had lactic acid as high as 3.2. She also had urinalysis suggestive of UTI with WBCs and bacteria. She was given IV Ceftriaxone. She was also given 1 L bolus of NS and started on D5 0.45NS. Ingram catheter placed. Cultures taken. CXR nl and no acute findings mentioned on EKG. Labs repeated today show Na of 160, Potassium of 4.7, BUN of 141 and Cr of 6.57. Lactic acid now 1.7. Blood cultures showing grown of gram pos Rods. Pt noted to have been up, eating and talking at OSH (Outside hospital). Request made to transfer pt her for further evaluation and treatment. Review of Systems: A comprehensive review of systems was negative except the noted exceptions in the HPI. A 14 point comprehensive review of systems was negative, except as documented in HPI. Past Medical, Family, Social History: Medications and Past History were reviewed and updated by LISSETTE SAUL MD in the patient's chart. PMH: HTN, Ischemic CVA x2 in 2019, Depression, Rt Humeral head fracture PSH: B/l hip replacements, Rt knee construction, Surgical repair of right humeral head fracture Medications: Prior to admission medications were personally reviewed by LISSETTE SAUL MD and updated in the patient's admission medication reconciliation. Allergies: NKDA Family Hx: Epic Computer Review: No family history on file. Additional family history obtained: Maternal side- Heart disease Social Hx: Social History Socioeconomic History ??? Marital status: Unknown Spouse name: Not on file ??? Number of children: Not on file ??? Years of education: Not on file ??? Highest education level: Not on file Occupational History ??? Not on file Social Needs ??? Financial resource strain: Not on file ??? Food insecurity Worry: Not on file Inability: Not on file ??? Transportation needs Medical: Not on file Non-medical: Not on file Tobacco Use ??? Smoking status: Not on file Substance and Sexual Activity ??? Alcohol use: Not on file ??? Drug use: Not on file ??? Sexual activity: Not on file Lifestyle ??? Physical activity Days per week: Not on file Minutes per session: Not on file ??? Stress: Not on file Relationships ??? Social connections Talks on phone: Not on file Gets together: Not on file Attends judaism service: Not on file Active member of club or organization: Not on file Attends meetings of clubs or organizations: Not on file Relationship status: Not on file ??? Intimate partner violence Fear of current or ex partner: Not on file Emotionally abused: Not on file Physically abused: Not on file Forced sexual activity: Not on file Other Topics Concern ??? Not on file Social History Narrative ??? Not on file Immunizations: There is no immunization history on file for this patient. Objective: Physical Examination: Vitals: 12/16/19 1327 Temp: 97.3 ??F (36.3 ??C) Weight: 141 lb 12.8 oz (64.3 kg) Height: 5' 6 (1.676 m) Vitals: 12/16/19 1320 12/16/19 1327 12/16/19 1527 BP: 122/69 97/63 Resp: 21 Temp: 97.3 ??F (36.3 ??C) 97.3 ??F (36.3 ??C) TempSrc: Axillary SpO2: 93% Weight: 141 lb 12.8 oz (64.3 kg) Height: 5' 6 (1.676 m) General: alert, well appearing, and in no distress HEENT: Head: normocephalic, atraumatic Eyes: pupils equal and reactive, extraocular eye movements intact Ears: normal and external auditory canal: clear Nose: Nares normal. Septum midline. Mucosa normal. No drainage or sinus tenderness. Throat: mucous membranes dry Neck/Lymph: supple, no significant adenopathy, thyroid exam: thyroid is normal in size without nodules or tenderness Lungs: clear to auscultation, no wheezes or rales, unlabored breathing Cardiac: Regular Rate Rhythm. S1S2 present; Pulses: 2+ and symmetrical, bilateral upper and lower extremities Abdomen: soft, non-tender; bowel sounds normal; no masses; no organomegaly Extremities: no edema, no clubbing or cyanosis : genitalia not examined Neuro: alert, oriented to person and place; pt's norm per son speech normal in context and clarity memory intact grossly cranial nerves II-XII appear intact motor strength: full proximally and distally no involuntary movements - tremors sensation: intact to light touch gait: not assessed Psych: Normal mood and affect Integument: Skin color, texture, turgor normal. No rashes or lesions Results Review: Lab Results Component Value Date SODIUM 156 (HH) 12/16/2019 POTASSIUM 4.3 12/16/2019 CHLORIDE 126 (H) 12/16/2019 CO2VEN 18 (L) 12/16/2019 ANIONGAP 16.3 12/16/2019 GLUCOSE 142 (H) 12/16/2019 BUN 137 (H) 12/16/2019 CREATININE 5.70 (H) 12/16/2019 BCRATIO8 24 (H) 12/16/2019 TOTALPROTEIN 6.7 12/16/2019 ALBUMIN 3.5 12/16/2019 CALCIUM 8.5 (L) 12/16/2019 TBIL 0.6 12/16/2019 SGOTAST 33 12/16/2019 SGPTALT 29 12/16/2019 ALKALINEPHO 93 12/16/2019 GFRNA 7 12/16/2019 GFRA 8 (L) 12/16/2019 Lab Results Component Value Date WBC 15.02 (H) 12/16/2019 HEMOGLOBIN 16.1 (H) 12/16/2019 HEMATOCRIT 52.5 (H) 12/16/2019 PLATELETCNT 162 12/16/2019 MCV 100.0 12/16/2019 Lab Results Component Value Date LACTICA 2.3 (H) 12/16/2019 Assessment / Plan: Pt is a 69 y/o female with a PMH of Depression, HTN, Ischemic Stroke and Displaced fx of proximal end of right humerus in 2019 who presented to the ED at [facility] in [place] for evaluation of weakness and fatigue since 12/14/19. Pt became more lethargic on yesterday and was unable to move or speak, so her son took her to the ED for further evaluation. While in the ED at [facility] in [place], pt had labs drawn and was found to have hypernatremia with a Sodium of 161. She had MOIRA with BUN of 161 and Cr of 8.06. Pt had lactic acid as high as 3.2. She also had urinalysis suggestive of UTI with WBCs and bacteria. She was given IV Ceftriaxone. She was also given 1 L sweetie us of NS and started on D5 0.45NS. Ingram catheter placed. Cultures taken. CXR nl and no acute findings mentioned on EKG; pt was in sinus tachy with mention of findings suggestive of possible old inferior [place]. CT head was negative for any acute abnormalities. Pt transferred over for further evaluation and management of MOIRA, Sepsis and hypernatremia. Pt did not require pressors. Labs repeated on arrival with slight improvement; Na of 156, Potassium of 4.3, BUN of 137 and Cr of 5.7. Lactic acid now2.7. Blood cultures at OSH showing grown of gram pos Rods. Consulted Nephrology and Infectious Disease. Will continue with IVF and IV antibiotics and monitor sodium closely. Sepsis, Lactic acidosis, Bacteremia, UTI: - start Sepsis Protocol - start IV Vanc and Zosyn - f/u final cultures from OSH - monitor vitals closely - f/u ID recs MOIRA : pt making urine. She has a Cr of 5.7 now. Cr was originally 8.06 on presentation to OSH. - consult renal - strict I/O - monitor electrolytes - ingram catheter in place - F/u Renal recs Hypernatremia: Pt with Na of 161 at OSH. It is now 156 - repeat Na q 4 hours - IVF with D5 - f/u renal recs Dehydration: - IVF with D5 HTN, H/o CVA in 2019: Pt with resulting memory problems per son. She is at baseline mental status. BP on lower side of normal at 97/63. Pt asymptomatic - continue to monitor - hold antihypertensives for now given low BP: pt on ASA 81 mg, Metoprolol 50 mg daily and Amlodipine 10 mg daily at home - pt not on statin; son states her cholesterol has always been very low DVT Proph: Heparin Code Status: Full Code The patient verbalized understanding of the plan of care and questions were answered to the patient's satisfaction. The rest of the patient's evaluation and management will depend on the patient's clinical course. I expect the patient to stay greater than 2 overnights. C/C: @PCPC@ By: LISSETTE SAUL MD, 12/16/2019, 11:25 AM CDT documented in this encounter Consult Notes * Joe Rosas MD - 12/18/2019 1:42 PM CDTAssociated Order(s): IP CONSULT TO UROLOGY Images from the original note were not included. Urology Consult History & Physical Trisha Waite is a 69 y.o. female. . Admitted 12/16/2019. Date of Service: 12/18/2019. Room: [address] [place] [address]. CC: renal mass HPI: Trisha Waite is a 69 y.o. female admitted on 12/16/2019. She has a past medical history of depression, hypertension, ischemic stroke with memory issue is, and history of a displaced fracture of theproximal right humerus in 2019. She presented to outside hospital for weakness and fatigue on December 14, 2019. And dysuria that time. Reportedly no fevers or chills no nausea or emesis. At that time, per review of the medical record, patient's son reported that she was lethargic and unable to move her speak prompting presentation to the emergency department. At that time she was hypernatremic and had acute renal failure with a serum creatinine of 8 and lactic acidosis. Urinalysis concerning for urinary tract infection on admission. She was started on ceftriaxone and received IV fluid hydration veru blood cultures reportedly showed g positive rods. She was transferred to [facility] for evaluation of renal failure renal ultrasound demonstrated only mild hydronephrosis prompting CT scan which demonstrates indeterminate renal masses, prompting urology consultation. The patient and her son report know about the atrophic left kidney that was incidentally found on the CT scan. She has a history of nephrolithiasis, and has reportedly undergone ESWL in the past. Review of Systems: Gen: Weakness and fatigue on admission Eyes: Denies blurry vision, pain HENT: Denies sinus congestion, diminished hearing Skin: Denies rashes or other changes in skin Resp: Denies cough, hemoptysis CV: Denies chest pain, SOB GI: Denies abdominal pain, changes in bowel movements, hematochezia/melena, acid reflux : Per HPI Neuro: Memory issues following ischemic stroke MSK: History of joint replacements Heme: Denies bleeding diathesis, blood clots Psych: History of depression Allergies: No Known Allergies Past Medical History: Ischemic stroke Hypertension Depression Past Surgical History: Bilateral hip replacement Right knee surgery Surgical repair right humeral fracture Medications: Current Facility-Administered Medications: ??? aspirin chewable tablet 81 mg, 81 mg, Oral, Daily, Lissette Saul MD, 81 mg at 12/18/19 0821 ??? dextrose 5 % solution, , Intravenous, Continuous, Alex Sarmiento MD, Last Rate: 100 mL/hr at1 0100 ??? HEParin (porcine) injection 5,000 Units, 5,000 Units, Subcutaneous, Q8H VARGHESE, Lissette Saul MD, 5,000 Units at 12/18/19 0821 ??? ondansetron (ZOFRAN-ODT) disintegrating tablet 4 mg, 4 mg, Oral, Q12H PRN OR ondansetron (ZOFRAN) injection 4 mg, 4 mg, Intravenous, Q12H PRN, Lissette Saul MD, 4 mg at 12/18/19 1045 ??? piperacillin-tazobactam (ZOSYN) IVPB 3.375 g, 3.375 g, Intravenous, Q12H, Albaro Arevalo MD, Stopped at 12/18/19 1222 ??? VANCOMYCIN INTERMITTENT THERAPY, , Miscellaneous, PRN, Lissette Saul MD Social History: Social History Socioeconomic History ??? Marital status: Unknown Spouse name: Not on file ??? Number of children: Not on file ??? Years of education: Not on file ??? Highest education level: Not on file Family History: Noncontributory Exam: BP 156/88 Pulse 87 Temp 97.6 ??F (36.4 ??C) (Oral) Resp 18 Ht 5' 6 (1.676 m) Wt 141 lb 12.8 oz (64.3 kg) SpO2 96% BMI 22.89 kg/m?? Gen: Pleasant female, in NAD, appropriate affect and insight, alert and oriented Neck: Supple, no palpable cervical lymphadenopathy HENT: Normocephalic, atraumatic, equal pupils, anicteric sclera. Edentulous. Skin: no rashes, normal turgor Resp: Clear, normal effort CV: Regular rate Abd: soft, non-distended, non-tender Ext: No edema of bilateral LEs Labs: Recent Labs Units 12/17/19 0501 12/16/19 1358 WBC 10(3)/mcL 10.82 15.02* HEMOGLOBIN g/dL 13.5 16.1* HEMATOCRIT % 43.6 52.5* PLATELETCNT 10(3)/mcL 126* 162 MCV fL 98.6 100.0 Recent Labs Units 12/18/19 0131 12/17/19 0501 12/16/19 1922 12/16/19 1358 SODIUM mmol/L 153* 156* 154* 156* POTASSIUM mmol/L 3.4* 3.7 3.9 4.3 CHLORIDE mmol/L 125* 125* 126* 126* CO2VEN mmol/L 21 21 15* 18* ANIONGAP mmol/L 10.4 13.7 16.9 16.3 GLUCOSE mg/dL 107 117* 224* 142* BUN mg/dL 94* 120* 129* 137* CREATININE mg/dL 3.80* 5.00* 5.30* 5.70* BCRATIO8 ratio 25* 24* 24* 24* TOTALPROTEIN g/dL -- -- 5.7* 6.7 ALBUMIN g/dL 2.7* 2.7* 2.9* 3.5 CALCIUM mg/dL 8.0* 8.0* 7.9* 8.5* TBIL mg/dL -- -- 0.4 0.6 SGOTAST U/L -- -- 21 33 SGPTALT U/L -- -- 25 29 ALKALINEPHO U/L -- -- 82 93 GFRNA 10 8 7 7 GFRA 12* 9* 8* 8* Results for orders placed or performed during the hospital encounter of 12/16/19 Urinalysis Microscopic If Indicated Result Value Ref Range SPECIFIC GRAVITY 1.012 1.003 - 1.035 URINE PH 6.0 5.0 - 8.0 WBC ESTERASE 3+ (A) Negative NITRITE Negative Negative PROTEIN, RANDOM URINE 1+ (A) Negative URINE GLUCOSE, QUAL Negative Negative URINE KETONES Negative Negative UROBILINOGEN <2.0 <2.0 mg/dL URINE BILIRUBIN Negative Negative URINE BLOOD 2+ (A) Negative maribell/ul URINALYSIS COLOR Yellow Yellow URINALYSIS CLARITY Clear Clear WBC (Urine) 21-50 (A) 0-5, Negative /hpf URINE RBC'S 0-5 0-5, Negative, None /hpf BACTERIA, URINE Rare (A) None, Absent /hpf URINE MUCOUS Rare None, Rare, Few DMH RENAL EPI CELLS URINE SPERM URINE TRICHOMONAS URINE YEAST Results for orders placed or performed during the hospital encounter of 12/16/19 Culture, Urine Specimen: Urine Result Value Ref Range CULTURE RESULTS NO GROWTH WITHIN 1 DAY Lab Results Component 12/17/19 1002 LACTIC ACID 2.4* Lab Results Component 12/18/19 0131 PROCALCITONIN 0.06 Radiology: Results for orders placed during the hospital encounter of 12/16/19 US RENAL COMPLETE Narrative EXAMINATION: US RENAL COMPLETE HPI: 61-year-old female with acute renal failure. COMPARISON: None available. TECHNIQUE: Complete renal ultrasound performed evaluation of the bladder obtained. FINDINGS: RIGHT KIDNEY:Right kidney is normal in size measuring 11.7 x 5.7 x 6.6 cm. There are intrarenal calculi present. Mild hydronephrosis is demonstrated. LEFT KIDNEY:Not visualized. BLADDER: Decompressed by a Ingram catheter. IMPRESSION Limited study demonstrating mild right hydronephrosis and multiple intrarenal calculi. Electronically signed by: Krystle Keller MD Date of Signature: 12/16/2019 20:38:58 Results for orders placed during the hospital encounter of 12/16/19 CT ABDOMEN PELVIS W/O CONTRAST Narrative EXAMINATION: CT ABDOMEN PELVIS W/O CONTRAST 12/17/2019 HPI: 69-year-old female with weakness and fatigue. Hydronephrosis. Absent left kidney. Acute renal failure. COMPARISON: Ultrasound performed of the kidneys 12/16/2019 TECHNIQUE: Helical imaging of the abdomen and pelvis obtained without the intravenous administration of contrast. A dose lowering technique was used for this procedure, which may include, but is not limited to, dose reduction techniques, automated exposure controlled techniques, use of iterative reconstruction techniques, and ALARA or ALARA gently techniques. FINDINGS: LUNG BASES: Bibasilar atelectasis is present with small bilateral effusions HEPATOBILIARY: Liver is homogeneous in attenuation. No discrete hepatic lesions are seen. The pancreas is intact without pancreatic mass or peripancreatic inflammation. The gallbladder and extrahepatic biliary tree are intact. :The adrenal glands are normal size and morphology. The left kidney is atretic or hyperplastic. An indeterminate renal masses seen arising from the assess atretic left kidney measuring 10 mm in size. Bilateral intrarenal calculi are seen. An indeterminate lesion is seen of the lower pole the right kidney is well. These are not seen well enough on previous ultrasound to confirm a cystic or solidnature. Ingram catheter is present in a collapsed bladder. Urothelial thickening is seen of the right renal collecting system. GI: Ileus is present. No obstruction or free air is seen. No free fluid is identified. The appendixis within normal limits. The stomach is distended. LYMPHATICS: The spleen is within normal limits. No adenopathy is seen. VASCULAR: Severe peripheral vascular atherosclerotic calcific plaquing is present without aneurysm MUSCULOSKELETAL: L1 compression fracture is demonstrated the acuity of which is uncertain IMPRESSION 1. Atretic or hypoplastic left kidney. 2. Urothelial thickening on the right suggesting inflammation or infection. 3. Bilateral indeterminate renal masses. 4. Bilateral intrarenal calculi. 5. L1 compression fracture of uncertain acuity. 6. Bibasilar atelectasis with small bilateral effusions. Electronically signed by: Nick Gaytan MD Date of Signature: 12/17/2019 14:51:13 CT images personally reviewed. The left kidney appears atrophic compared to the right. There are nonobstructing stones in the left kidney. No definitive left ureteral stones or hydronephrosis. The right kidney has indeterminate masses CT imaging without contrast. There is mild pelviectasis, but no significant hydronephrosis. No perinephric stranding. Small, nonobstructing right renal stones. No ureteral stones. The bladder is incompletely evaluated given bilateral hip prostheses in streak artifact. Current Inpatient/Outpatient Systemic Antibiotics Penicillin Combinations Start End piperacillin-tazobactam (ZOSYN) IVPB 3.375 g 12/17/2019 3.375 g, Intravenous, EVERY 12 HOURS @ 12.5 mL/hr, Renally adjusted for cr. Cl 10.1 Assessment/Plan: Ms. Waite is a 69 y.o. female admitted on 12/16/2019. She has a history of ischemic stroke with resultant memory issues, depression and hypertension. She was recently admitted with urinary tract infection on admission, bacteremia, acute renal failure, and hypernatremia. Transferred to [facility] for further evaluation and management. Being evaluated by Nephrology. Currently on Zosyn for her infection. CT demonstrates atrophic left, bilateral nonobstructive stones, and possible bilateral indeterminate renal masses given CT scan without contrast. No urgent intervention necessary at this time as there does not appear to be obstructive etiology for her renal failure. She is having good urine output. She appears to have a most likely functionally solitary right kidney given her atrophic left kidney. For the indeterminate renal masses, would recommend an MRI of the abdomen following resolution of her acute issues. If her renal function improves to the point were she could have IV contrast, this would be ideal. This can be performed on an outpatient basis. Would have her follow-up with Urology as an outpatient following an MRI of the abdomen. This can be done here, or closer to her home in [place], [place]. Joe Rosas MD [facility] 12/18/2019 1:42 PM CDT * Brenda Oseguera APN, CNP - 12/17/2019 2:18 PM CDTAssociated Order(s): IP CONSULT TO INFECTIOUS DISEASES Images from the original note were not included. INFECTIOUS DISEASE CONSULTATION SARAH MADDEN APN, MD [facility] DATE OF ADMISSION 12/16/2019 1:27 PM DATE OF CONSULTATION 12/17/2019 REASON FOR CONSULTATION Sepsis, bacteremia, concern for urinary tract infection Trisha Waite is a 69-year-old female who is seen today for initial consultation at the request of Dr. Saul with hospital services. Patient's past medical, surgical history reviewed with the patient. Time of visit today as patient's admission is surprisingly not done at this time. The patienthas significant medical history for depression. She has also had a stroke and has some memory recall deficits since the stroke. In 2019, she also had a displaced fracture of the proximal end of the right humerus and underwent pinning procedure. The patient also has hypertension. Patient lives [place], [place] in a private home alone as she is . Apparently patient began to have some weakness and fatigue over the last several days. She was found by her son naked on the couch, confused and incontinent of urine. Patient was taken to [facility] in [place], [place] by EMS services. Reviewed summary from [facility] in [place]. The patient underwent radiological studies and laboratory studies. She had a CT of her head, which showed asymmetric, prominent basal ganglion calcifications severe on the left, similar to previous exams. No acute intracranial hemorrhage, cortical atrophy and chronic white matter microangiopathic changes identified. The patient also had an EKG which showed sinus tachycardia with short MD interval with a heart rate of 103. She also had a chest x-ray which showed no acute cardiopulmonary findings. A urinalysis was obtained and concerning for possible urinary tract infection as it was abnormal with 3+ leukocytes and 3+ protein, turbid transparency, 2+ blood, large amount of WBCs, 4+ bacteria. She also had blood cultures obtained and at this time are growing gram-positive rods in 2 bottles. She also had a urine culture which atthis time is growing greater than 100,000 CFU-mL gram- negative rods. Patient's lactic acid was 3.2.She was found to have acute kidney injury with a creatinine of 8.06, BUN 150. Patient was given IV fluid bolus and started on IV ceftriaxone 1 g on 12/15/2019. She had a 2nd dose of IV ceftriaxone on12/16/2019 at [facility]. It was decided patient to be transferred to [facility] for ICU level of care and due to acute kidney injury and need for evaluation of renal function. Patient also had a Ingram catheter placed. On 12/16/2019, patient presented to [facility] as a direct admit from [facility]. She was given further IV fluids and was also started on IV vancomycin and IV Zosyn. She had a nephrology consultation as she had acute kidney injury. Patient underwent a renal ultrasound on 12/16/2019 and findings were consistent with the right mild right hydronephrosis and multiple intrarenal calculi. The left kidney is unable to be seen on ultrasound. Patient then underwent CT abdomen and pelvis on 12/17/2019 and atretic or hypoplastic left kidney, urethral thickening on the right,suggestive of inflammatory or infection, bilateral intermediate renal mass, bilateral intrarenal calculi, L1 compression fracture of uncertain acuity, bilateral atelectasis with small bilateral effusions were also seen. The patient also had a repeat urine culture obtained on 12/16/2019. At this time, no growth. Due to concerns for sepsis and bacteremia with a complicated urinary tract infection, Infectious Disease consultation was obtained. At time of visit today, patient is seen resting in bed comfortably in no acute distress. Patient isin good spirits at time of visit. [facility] reports [facility] She reports that she has a good appetite and did report an odor change to her urine over the last week. She also has some right flank pain. The patient complains of a soft stool. However, no diarrhea noted. She has also complains of a nonproductive cough for the last few days. The patientcurrently denies fever, chills, nausea, vomiting, diarrhea, shortness of breath, chest pain, or rash. Patient has Ingram catheter in place with clear yellow urine in the bag. Intake and output reviewed with a negative net fluid balance since admission last 24 hours, 600 mL of urinary output has beendocumented. Patient is currently hemodynamically stable and afebrile. She does report she continuesto live [place], [place] in a private home alone. She is . She has a son who lives nearbywho helps her. She does have cats in the home. Denies any recent illness in the cats or any bites or scratches. 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 The restof the review of systems is noncontributory. PAST MEDICAL HISTORY No past medical history on file. PAST SURGICAL HISTORY No past surgical history on file. ALLERGIES No Known Allergies CURRENT MEDICATIONS Current Facility-Administered Medications: ??? aspirin chewable tablet 81 mg, 81 mg, Oral, Daily, Lissette Saul MD, 81 mg at 12/17/19 0816 ??? dextrose 5 % solution, , Intravenous, Continuous, Alex Sarmiento MD, Last Rate: 100 mL/hr at12/17/19 1150 ??? HEParin (porcine) injection 5,000 Units, 5,000 Units, Subcutaneous, Q8H VARGHESE, Lissette Saul MD, 5,000 Units at 12/17/19 0816 ??? ondansetron (ZOFRAN-ODT) disintegrating tablet 4 mg, 4 mg, Oral, Q12H PRN OR ondansetron (ZOFRAN) injection 4 mg, 4 mg, Intravenous, Q12H PRN, Lissette Saul MD ??? piperacillin-tazobactam (ZOSYN) IVPB 3.375 g, 3.375 g, Intravenous, Q12H, Albaro Arevalo MD ??? VANCOMYCIN INTERMITTENT THERAPY, , Miscellaneous, PRN, Lissette Saul MD Current Inpatient/Outpatient Systemic Antibiotics Penicillin Combinations Start End piperacillin-tazobactam (ZOSYN) IVPB 3.375 g 12/17/2019 3.375 g, Intravenous, EVERY 12 HOURS @ 12.5 mL/hr, Renally adjusted for cr. Cl 10.1 FAMILY HISTORY No family history on file. SOCIAL HISTORY Social History Socioeconomic History ??? Marital status: Unknown Spouse name: Not on file ??? Number of children: Not on file ??? Years of education: Not on file ??? Highest education level: Not on file Immunizations Never Reviewed No immunizations on file. REVIEW OF SYSTEMS Reviewed, and as per HPI. The rest of a detailed review of systems is not contributory. VITAL SIGNS Vitals: 12/17/19 0449 12/17/19 0549 12/17/19 0649 12/17/19 1024 BP: 102/61 141/68 129/70 97/64 Pulse: 61 82 Resp: Temp: 97.7 ??F (36.5 ??C) 98.1 ??F (36.7 ??C) TempSrc: Oral SpO2: 96% 95% 95% 92% Weight: Height: Patient Vitals for the past 24 hrs (Last 4 readings): Temp 12/17/19 1024 98.1 ??F (36.7 ??C) 12/17/19 0649 97.7 ??F (36.5 ??C) 12/16/19 2249 98.1 ??F (36.7 ??C) 12/16/19 1849 97 ??F (36.1 ??C) I/O last 3 completed shifts: In: 896 [I.V.:896] Out: 600 [Urine:600] I/O this shift: In: - Out: 1175 [Urine:1175] Patient Lines/Drains/Airways Status Active LDAs Name: Placement date: Placement time: Site: Days: Urethral Catheter 12/15/19 16 12/15/19 -- 2 Peripheral IV Line - Single Lumen 12/16/19 basilic vein (medial side of arm), right 22 gauge 12/16/19 -- 1 Peripheral IV Line - Single Lumen 12/16/19 median cubital vein (antecubital fossa), left 22 gauge 12/16/19 -- 1 PHYSICAL EXAMINATION GENERAL: Pleasant female, awake, alert, and in no acute distress. SKIN: No rash, no ecchymosis or petechiae. EYES: Sclerae anicteric. ENT: Oral mucosa moist, no exudate, no thrush. NECK: Supple, no lymphadenopathy, no JVD. LUNGS: Clear to auscultation, no wheeze, no rhonchi. HEART: S1, S2 regular, no murmur or rub. ABDOMEN: Soft, not tender, not distended, no hepatosplenomegaly. BACK: Positive right CVA tenderness, no vertebral tenderness. EXTREMITIES: No edema, no cyanosis. MUSCULOSKELETAL: No joint effusion, swelling or tenderness. NEUROLOGIC: Awake, alert and oriented x 3, previous stroke with memory recall deficit /GI: Ingram catheter with clear yellow urine in the bag LABORATORY DATA Recent Labs Units 12/17/19 0501 12/16/19 1358 WBC 10(3)/mcL 10.82 15.02* HEMOGLOBIN g/dL 13.5 16.1* HEMATOCRIT % 43.6 52.5* PLATELETCNT 10(3)/mcL 126* 162 MCV fL 98.6 100.0 Recent Labs Units 12/17/19 0501 12/16/19 1922 12/16/19 1358 SODIUM mmol/L 156* 154* 156* POTASSIUM mmol/L 3.7 3.9 4.3 CHLORIDE mmol/L 125* 126* 126* CO2VEN mmol/L 21 15* 18* ANIONGAP mmol/L 13.7 16.9 16.3 GLUCOSE mg/dL 117* 224* 142* BUN mg/dL 120* 129* 137* CREATININE mg/dL 5.00* 5.30* 5.70* BCRATIO8 ratio 24* 24* 24* TOTALPROTEIN g/dL -- 5.7* 6.7 ALBUMIN g/dL 2.7* 2.9* 3.5 CALCIUM mg/dL 8.0* 7.9* 8.5* TBIL mg/dL -- 0.4 0.6 SGOTAST U/L -- 21 33 SGPTALT U/L -- 25 29 ALKALINEPHO U/L -- 82 93 GFRNA 8 7 7 GFRA 9* 8* 8* Recent Labs Units 12/16/19 1550 PHARTERIAL 7.34* EVW3GWD mmHg 30* PO2ART mmHg 64* O2ART % 92* 92.8* Lab Results Component Value Date LACTICA 2.4 (H) 12/17/2019 LACTICA 2.8 (H) 12/17/2019 LACTICA 1.4 12/17/2019 LACTICA 1.7 12/16/2019 LACTICA 2.8 (H) 12/16/2019 LACTICA 2.3 (H) 12/16/2019 Lab Results Component Value Date PCT 0.12 (H) 12/16/2019 PCT 0.09 12/16/2019 MICROBIOLOGY Results for orders placed or performed during the hospital encounter of 12/16/19 Urinalysis Microscopic If Indicated Result Value Ref Range Status SPECIFIC GRAVITY 1.012 1.003 - 1.035 Final URINE PH 6.0 5.0 - 8.0 Final WBC ESTERASE 3+ (A) Negative Final NITRITE Negative Negative Final PROTEIN, RANDOM URINE 1+ (A) Negative Final URINE GLUCOSE, QUAL Negative Negative Final URINE KETONES Negative Negative Final UROBILINOGEN <2.0 <2.0 mg/dL Final URINE BILIRUBIN Negative Negative Final URINE BLOOD 2+ (A) Negative maribell/ul Final URINALYSIS COLOR Yellow Yellow Final URINALYSIS CLARITY Clear Clear Final WBC (Urine) 21-50 (A) 0-5, Negative /hpf Final URINE RBC'S 0-5 0-5, Negative, None /hpf Final BACTERIA, URINE Rare (A) None, Absent /hpf Final URINE MUCOUS Rare None, Rare, Few Final [facility] RENAL EPI CELLS Final URINE SPERM Final URINE TRICHOMONAS Final URINE YEAST Final Reviewed microbiology studies from [facility] Blood culture, obtained on 12/07/2019, Gram-positive rods so far x2. Urine culture obtained in 03/26/2019, greater than 100,000 CFU-mL gram-negative rods so far. RADIOLOGY Renal ultrasound obtained on 12/16/2019, findings suggestive of mild right hydronephrosis and multiple intrarenal calculi. CT abdomen pelvis obtained on 12/17/2019, findings suggestive of Atretic or hypoplastic left kidney. Urothelial thickening on the right suggesting inflammation or infection. Bilateral indeterminate renal masses. Bilateral intrarenal calculi. L1 compression fracture of uncertain acuity. Bibasilar atelectasis with small bilateral effusions. IMPRESSION Sepsis, resolved Elevated procalcitonin, improving ?Bacteremia, Gram-positive rods so far Complicated urinary tract infection Urine culture greater than 100,000 CFU-mL gram-negative rods Lactic acidosis Leukocytosis, resolved, resolved MOIRA, elevated creatinine ?Right hydronephrosis on ultra sound, not identified on CT Right intrarenal calculi Right renal masses Hypernatremia Metabolic encephalopathy, resolved Multiple medical problems Depression, stroke with memory recall deficit RECOMMENDATIONS Continue IV Zosyn 3.375 g every 8 hours, 1st dose on 12/16/2019 Continue IV vancomycin per pharmacy protocol First does 1250 mg on 12/16/2019 Today's level 16 and therapeutic Today's dose 750 mg 1 time Next level on 12/18/2019 Will monitor renal function closely Received IV ceftriaxone 1 g on 12/15/2019 through 12/16/2019. Urine culture obtained on 12/16/2019, no growth so far. Urine culture obtained on 12/15/2019 at [facility], greater than 100,000 gram-negative rods so far Blood culture obtained on 12/07/2019 at [facility], Gram-positive rods so far x2. Concern for possible contamination. No previous cultures to review in the EMR. At this time we will order CRP for tomorrow morning Treatment plan was discussed with the patient in detail and questions answered. Patient seems to comprehend well and is appreciative of care. Discussed with nursing staff. Will follow. Thank you for consultation Case discussed with Dr. Corona. BRENDA OSEGUERA APN, C.O.D. CLERK; 12/17/2019, 2:19 PM CDT Cosigned by Giovanny Corona MD at 12/13/2021 2:50 PM CDT * Alex Sarmiento MD - 12/16/2019 7:56 PM CDTAssociated Order(s): IP CONSULT TO NEPHROLOGY NEPHROLOGY CONSULTATION NOTE JASSON VALDIVIA MD Reason for Consultation: Acute renal failure Lissette Saul MD Trisha Waite is a 69 y.o. female 1950 JASSON VALDIVIA MD HPI: Patient was initially admitted to the hospital because of the fatigue as well as weakness, she has a history of hypertension CVA proximal right humeral fracture, patient was transferred from [facility] [place] [facility] in [place] for evaluation of the weakness and fatigue which has been going on for the last at least to 3 days, patient was also not eating and drinking well however she did not have any fever chills or rigors about 2 days ago she was feeling very tired patient was also taking gabapentin him at that time, in the emergency room at the outside hospital patient creatinine was 8.06 lactic acid was about 3.2 with a BUN of 161, patient possibility of having a UTI was there patient wasstarted on ceftriaxone she did receive bolus of normal saline patient had a serum sodium of 160, and after that serum lactic acid did came down, blood cultures was showing Gram-positive rods also in the outside hospital. After the admission patient was noted to have his serum sodium of 156, and low bicarbonate and patient was started on D5W I will add sodium bicarbonate to it as patient does have significant acidosis. When I reviewed the record it seems patient did had some chronic kidney disease going back to October 2018 with a creatinine of 1.6 to about 2.0 patient to follow up with a local general practitioner however she does not know the name, she does have a history of UTI also, at the outside hospital patient hemoglobin was 18.4 but she did not had anemia No past medical history on file. PSH No past surgical history on file. Social History Fam Hx: family history is not on file. Allergies: No Known Allergies Current Facility-Administered Medications Medication Dose Route Frequency Provider Last Rate Last Dose ??? [START ON 12/17/2019] aspirin chewable tablet 81 mg 81 mg Oral Daily Lissette Saul MD ??? dextrose 5 % 1,000 mL with sodium bicarbonate 100 mEq infusion Intravenous Continuous Alex Sarmiento MD ??? HEParin (porcine) injection 5,000 Units 5,000 Units Subcutaneous Q8H [facility] Lissette Saul MD 5,000 Units at 12/16/19 1706 ??? ondansetron (ZOFRAN-ODT) disintegrating tablet 4 mg 4 mg Oral Q12H PRN Lissette Saul MD Or ??? ondansetron (ZOFRAN) injection 4 mg 4 mg Intravenous Q12H PRN Lissette Saul MD ??? piperacillin-tazobactam (ZOSYN) IVPB 3.375 g 3.375 g Intravenous Q8H Lissette Saul MD 12.5 mL/hr at 12/16/19 1705 3.375 g at 12/16/19 1705 ??? VANCOMYCIN INTERMITTENT THERAPY Miscellaneous PRN Lissette Saul MD No medications prior to admission. Review of Systems: A comprehensive review of systems was negative except for as in HPI PHYSICAL EXAMINATION Alert and oriented X 3. Vitals: 12/16/19 1327 12/16/19 1527 12/16/19 1649 12/16/19 1849 BP: 97/63 118/69 101/63 Resp: 21 (!) 32 25 Temp: 97.3 ??F (36.3 ??C) 97.3 ??F (36.3 ??C) 97.1 ??F (36.2 ??C) 97 ??F (36.1 ??C) TempSrc: Axillary Axillary Oral SpO2: 93% 92% 93% Weight: 141 lb 12.8 oz (64.3 kg) Height: 5' 6 (1.676 m) HEENT: no palor, no jaundice, pupils equal and reacting, Other ENT exam: Negative NECK: no JVD, no lymphadenopathy, no thyromegaly. CHEST: Distant sounds HEART: regular S1 and S2, no S3, no pricardial rub. ABDOMEN: soft and non tender, liver and spleen not enlarged, gut sounds present. NEUROLOGICALLY: decrease sensation in legs.. SKIN: no rash, no excoriation, no bruising. BACK: No Deformity, No focal tenderness EXT: No edema, I&O: Intake/Output Summary (Last 24 hours) at 12/16/20191955 Last data filed at 12/16/20191909 Gross per 24 hour Intake 535 ml Output 475 ml Net 60 ml VITALS: BP 101/63 Temp 97 ??F (36.1 ??C) (Oral) Resp 25 Ht 5' 6 (1.676 m) Wt 141 lb 12.8 oz (64.3 kg) SpO2 93% BMI 22.89 kg/m?? DATA REVIEW: No results found for: HGBA1C No results found for: CORTCORTISOL No components found for: RENINACTIVITY No results found for: [id number] ALDOSTERNOEN No components found for: ALDOSRENLCALC ALDOSTERNONE/RENIN ACTIVITY RATIO 20^ No results found for: 1532832C METANEPHRINE. No results found for: [id number] NORMETANEPHRINE. No results found for: [id number] NORMETANEPHRINE INTERPRETATION No results found for this or any previous visit. No results found for this or any previous visit. No results found for: UPCRO No results found for: [id number] No results found for: COMPLEMENTT, [id number], [id number] No results found for: LATASHA No results found for: ANCASC No results found for: SMEO No results found for: CPK No results found for: VANCOMYCINTR No results found for this or any previous visit. Recent Labs Units 12/16/19 1358 SODIUM mmol/L 156* POTASSIUM mmol/L 4.3 CHLORIDE mmol/L 126* CO2VEN mmol/L 18* ANIONGAP mmol/L 16.3 BUN mg/dL 137* CREATININE mg/dL 5.70* BCRATIO8 ratio 24* TOTALPROTEIN g/dL 6.7 ALBUMIN g/dL 3.5 CALCIUM mg/dL 8.5* TBIL mg/dL 0.6 SGOTAST U/L 33 SGPTALT U/L 29 ALKALINEPHO U/L 93 GFRNA 7 GFRA 8* Lab Results Component Value Date MAGNESIUM 3.1 (H) 12/16/2019 Recent Labs Units 12/16/19 1358 MAGNESIUM mg/dL 3.1* Diet Active Orders Diet Cardiac Restrictions: Cardiac Prudent Recent Labs Units 12/16/19 1358 WBC 10(3)/mcL 15.02* HEMOGLOBIN g/dL 16.1* HEMATOCRIT % 52.5* PLATELETCNT 10(3)/mcL 162 No results found for: IRON, FERRITIN No results found for: IRONSATURATI No results found for: FOLAT No results found for: [id number] No results found for: TSH No results found for: OCCULTBLOOD No results found for: SODIUMRNUR No results found for: BNP, BNPPOCT Lab Results Component Value Date ADJCA 8.9 12/16/2019 Lab Results Component Value Date CALCIUM 8.5 (L) 12/16/2019 PHOSPHORUS 4.8 (H) 12/16/2019 Lab Results Component Value Date ALBUMIN 3.5 12/16/2019 Lab Results Component Value Date MAGNESIUM 3.1 (H) 12/16/2019 No results found for: CDIFFTOXIN, CDIFTB Last Ventilator settings: SpO2: 93 % Lab Results Component Value Date PHARTERIAL 7.34 (L) 12/16/2019 PO2ART 64 (L) 12/16/2019 [id number] 30 (L) 12/16/2019 O2ART 92.8 (L) 12/16/2019 O2ART 92 (L) 12/16/2019 No results found for this or any previous visit. Lab Results Component Value Date PCT 0.09 12/16/2019 Lab Results Component Value Date LACTICA 2.3 (H) 12/16/2019 No results found for: CULTURERSLTS No results found for: LIPASE No results found for: AMYL, AMYLASE Lab Results Component Value Date ALBUMIN 3.5 12/16/2019 TBIL 0.6 12/16/2019 ALKALINEPHO 93 12/16/2019 SGOTAST 33 12/16/2019 SGPTALT 29 12/16/2019 TOTALPROTEIN 6.7 12/16/2019 No results found for: AMMONIA Treatment Team: Consulting Physician: Giovanny Corona MD; Consulting Physician: Alex Sarmiento MD Assessment: Acute renal failure. Hypertension. History of CVA. UTI. Dehydration. Urosepsis. Lactic acidosis. Hypernatremia. Recommendations: We will do urine sodium, urine creatinine, urine osmolality, renal ultrasound, will follow the patient with you. I will start sodium bicarbonate also because of the acidosis and I am just going to start 2 ampules as patient does have hypernatremia also. Orders I Authorized in the last 24 Hrs Culture, Urine ONE TIME dextrose 5 % 1,000 mL with sodium bicarbonate 100 mEq infusion CONTINUOUS Adjusted Calcium *Samc ONE TIME dextrose 5 % solution CONTINUOUS, Status: Discontinued Ur Osmolality ONE TIME Ur Sodium (Na) Random ONE TIME Ur Creatinine Random ONE TIME US RENAL COMPLETE 1 TIME IMAGING Urinalysis Microscopic If Indicated ONE TIME CMP (Comprehensive Metabolic Panel) ONE TIME [START ON 12/17/2019] aspirin, 81 mg, Daily HEParin (porcine), 5,000 Units, Q8H VARGHESE piperacillin-tazobactam, 3.375 g, Q8H IV infusion builder Current Facility-Administered Medications Medication ??? [START ON 12/17/2019] aspirin chewable tablet 81 mg ??? dextrose 5 % 1,000 mL with sodium bicarbonate 100 mEq infusion ??? HEParin (porcine) injection 5,000 Units ??? ondansetron (ZOFRAN-ODT) disintegrating tablet 4 mg Or ??? ondansetron (ZOFRAN) injection 4 mg ??? piperacillin-tazobactam (ZOSYN) IVPB 3.375 g ??? VANCOMYCIN INTERMITTENT THERAPY documented in this encounter Miscellaneous Notes * Interdisciplinary - Kelli Magana RN - 12/21/2019 4:00 PM CDT 1600: Pt son in room and upset that pt has been discharged and that noone has contacted him to giveupdates on patient or tell him that she is being discharged. States he has not talked to any nurse or physician in 3 days. Press Operator Assistant explained that I was unaware that I was supposed to call and give daily updates and that his mother had told me that he was coming in this evening and that she would ride home with her son because he lives down the road. Son states his mom has had strokes and her memory is impaired and that he told the ICU nurses that he was to be contacted with updates. Upon press writer inspection of notes; there is nothing stating that patient son is to be updated daily and that patient does not remember anything. Pt orders her own meals in room; pt uses call light and has press writer orCNA escort her to bathroom for safety; pt may be forgetful but pt does have some memory intact. Pt also lives alone. Press Operator Assistant expressed to patient son about being sorry for not knowing to call him. Press Operator Assistant has been patients RN for 2 days and pts son has not called to talk to RN about updates to do with patient but has called patient in the room. Pts son states he has no clothes to take pt home; press writer offered scrubs but patient stated he wasn't prepared to take her home. Press Operator Assistant asked if he wishes to take her home tomorrow and have her stay but son states I dont want to waste the gas we live 2hrs away and insurance will charge another day to stay here. Son asked to talk with hospitalist and charge nurse. Nadia mcclelland RN spoke with son and Dr Merchant came and spoke with son. 1733: Press Operator Assistant asked pt son in room what his decision was on whether he was taking his mother to her home or wanting her to stay another day. Pt states hes still trying to decide 1814: Pt wily Dixon decided to take patient home. Asks for a bag in case she vomits on the long car ride. Press Operator Assistant gave Zofran and a emesis bag to patient. Patient has had no nausea today. Press Operator Assistant also gave pts son a pill cutter for at home because pts discharge B/P medication ( amlodapine ) had changedto 2.5mg and pts son stated they had 5mg at home and did not want to waste that medication. Pt was also given a new pair of brown scrubs to transport home in and a quilted blanket * Plan of Care - Kelli Magana RN - 12/21/2019 10:16 AM CDT Problem: Adult Inpatient Plan of Care Goal: Plan of Care Review Outcome: Ongoing (see interventions/notes) Goal: Absence of Hospital-Acquired Illness or Injury Outcome: Ongoing (see interventions/notes) Goal: Optimal Comfort and Wellbeing Outcome: Ongoing (see interventions/notes) Goal: Readiness for Transition of Care Outcome: Ongoing (see interventions/notes) Goal: Rounds/Family Conference Outcome: Ongoing (see interventions/notes) Problem: Infection Goal: Infection Symptom Resolution Outcome: Ongoing (see interventions/notes) * Interdisciplinary - Germain Jean [facility] - 12/21/2019 6:37 AM CDT Images from the original note were not included. Pharmacokinetic Consult - Vancomycin Date of Consult: 12/16/19 Day of therapy:6 Vancomycin Indication: Sepsis Vancomycin Goal Trough: 15-20 Renal Function: Lab Results Component Value Date CREATININE 2.40 (H) 12/20/2019 CREATININE 2.80 (H) 12/19/2019 CREATININE 3.80 (H) 12/18/2019 Lab Results Component Value Date BUN 37 (H) 12/20/2019 BUN 55 (H) 12/19/2019 BUN 94 (H) 12/18/2019 Estimated Creatinine Clearance: 21 mL/min (A) (by C-G formula based on SCr of 2.4 mg/dL (H)). WBC: Lab Results Component Value Date WBC 10.82 12/17/2019 WBC 15.02 (H) 12/16/2019 Vitals: 12/20/19 0800 12/20/19 1200 12/20/19 1900 12/21/19 0200 BP: 160/73 129/80 108/79 122/84 Pulse: 61 70 74 70 Resp: 20 Temp: 98.1 ??F (36.7 ??C) 98 ??F (36.7 ??C) 97.8 ??F (36.6 ??C) 97.7 ??F (36.5 ??C) TempSrc: Oral Oral SpO2: 97% 97% 95% 98% Weight: Height: Other Pertinent Labs: No results for input(s): LACACIDPOCT, LACTICA in the last 72 hours. No results for input(s): CRP in the last 72 hours. Microbiology Results for this Admission Procedure Component Value Units Date/Time Culture, Urine [[id number]] Collected: 12/16/192058 Order Status: Completed Specimen: Urine Updated: 12/19/19957 CULTURE RESULTS NO GROWTH WITHIN 2 DAYS Culture, Blood [[id number]] Collected: 12/19/19 0706 Order Status: Completed Specimen: Culture from Blood Updated: 12/20/19 0800 CULTURE RESULTS NO GROWTH WITHIN 1 DAY Culture, Blood [[id number]] Collected: 12/19/19 1129 Order Status: Completed Specimen: Culture from Blood Updated: 12/20/19 1301 CULTURE RESULTS NO GROWTH WITHIN 1 DAY Current Inpatient/Outpatient Systemic Antibiotics Penicillin Combinations Start End piperacillin-tazobactam (ZOSYN) IVPB 3.375 g 12/20/2019 3.375 g, Intravenous, EVERY 8 HOURS @ 12.5 mL/hr, Renally adjusted for cr.cl 21 No results found for: VANCOMYCINTR Lab Results Component Value Date VANCOMYCIN 15 12/20/2019 VANCOMYCIN 19 12/19/2019 VANCOMYCIN 17 12/18/2019 VANCOMYCIN 16 12/17/2019 Current Vanco Regimen: Serial dosing 1250 mg 12/15 @ 1730 750mg On 12/16 and 12/17 Assessment/Plan: Patient's renal function is poor Will follow closely Vanco doses will require frequent levels 12/15 Vanco 1250 mg to be given today @1730 12/16 Level @1630 was 16 Give 750mg supplemental dose 12/17 Level was 17 at 1900 Therapeutic Give 750mg suppement on 12/17 at 2157 10 Level as 19 at 2200 No dose today 12/19 [place] 12/19 [place] [address] Was 15 Give 1000mg supplemental dose Sr. Cr is improoving 2.4 today Next level on 12/20 at 2330 Thank you for the consult * Plan of Care - Masha Das RN - 12/21/2019 12:59 AM CDT Problem: Adult Inpatient Plan of Care Goal: Plan of Care Review Outcome: Ongoing (see interventions/notes) Goal: Absence of Hospital-Acquired Illness or Injury Outcome: Ongoing (see interventions/notes) Goal: Optimal Comfort and Wellbeing Outcome: Ongoing (see interventions/notes) Goal: Readiness for Transition of Care Outcome: Ongoing (see interventions/notes) Goal: Rounds/Family Conference Outcome: Ongoing (see interventions/notes) Problem: Infection Goal: Infection Symptom Resolution Outcome: Ongoing (see interventions/notes) * Plan of Care - Shawnee Romano, DIRECTOR OF SAFETY - 12/20/2019 3:28 PM CDT Problem: Adult Inpatient Plan of Care Goal: PT - Goal Description: Patient will be seen by PT 6 days a week to address impairments and functional limitations. Treatments to include: therapeutic exercise, balance re-education, bed mobility, transfer training, gait training, and/or neuromuscular re-education. All goals written to return patient to prior level of function and progress patient towards functional independence in home and community environments with regard to discharge destination and available assistance: PT Goals: Pt to require sup for bed mobility. By: CAREN BOYCE PTA; 12/19/2019, 10:55 AM CDT Pt to require sup for transfers using AD as needed. By: CAREN BOYCE PTA; 12/19/2019, 10:55 AM CDT Pt to ambulate 150 feet with sup using AD as needed. Pt to tolerate at least 15 min of therapeutic activity/balance activity/neuro re-education/gait training/therapeutic exercise. By: CAREN BOYCE PTA; 12/19/2019, 10:55 AM CDT Pt to ascend and descend stairs per D/C destination set up as appropriate. Patient Goal: Return home By: Chayo Sutton, PT, DPT 12/18/2019, 5:29 PM CDT Outcome: Ongoing (see interventions/notes) PT TREATMENT NOTE Recommendations: Anticipate discharge to home with increased assist. DME recommendations include wwk. Recommendations for floor staff: up with supervision Post-evaluation therapy recommendations communicated with pt. Subjective: pt reports she just got out of bed, feeling tired today but agreeable to PT Pain: none reported Precautions: IV, ingram Observations: Patient was seen in patient room. Treatment: Bed Mobility: pt in chair on e/e Transfers/Gait: Sit to stand transfers with cga using wwk. Ambulated 40 feet with cga using wwk. Therapeutic Exercise: efren, [place], HR/TR x10 Assessment: pt anitha tx fair, pt unable to ambulate as far today as last tx. Pt reports feeling more fatigued today and was a little light headed upon initial stand. Pt tolerated exs well, cont to haveweakness in R L that has been present for some time. Discussed recommendation of walker with pt, she is agreeable. Pt will require increased assist and cont PT at home Patient Progress: fair Tolerance: fair Patient would benefit from continued therapy for 1-2 days to address strength and mobility. Plan: cont Gait belt used during all transfers and gait. Patient left in chair with call light in reach. Start Time: 1500 Stop Time: 1515 Total Time: 15 minutes Interventions: TherEx, Gait, Transfers By: SHAWNEE ROMANO PTA; 12/20/2019, 3:28 PM CDT * Plan of Care - Casandra Garcia RN - 12/20/2019 11:14 AM CDT Problem: Adult Inpatient Plan of Care Goal: Plan of Care Review Outcome: Ongoing (see interventions/notes) Goal: Absence of Hospital-Acquired Illness or Injury Outcome: Ongoing (see interventions/notes) Goal: Optimal Comfort and Wellbeing Outcome: Ongoing (see interventions/notes) Goal: Readiness for Transition of Care Outcome: Ongoing (see interventions/notes) Goal: Rounds/Family Conference Outcome: Ongoing (see interventions/notes) Problem: Infection Goal: Infection Symptom Resolution Outcome: Ongoing (see interventions/notes) * Interdisciplinary - Germain Jean [facility] - 12/20/2019 6:40 AM CDT Images from the original note were not included. Pharmacokinetic Consult - Vancomycin Date of Consult: 12/16/19 Day of therapy:5 Vancomycin Indication: Sepsis Vancomycin Goal Trough: 15-20 Renal Function: Lab Results Component Value Date CREATININE 2.80 (H) 12/19/2019 CREATININE 3.80 (H) 12/18/2019 CREATININE 5.00 (H) 12/17/2019 Lab Results Component Value Date BUN 55 (H) 12/19/2019 BUN 94 (H) 12/18/2019 BUN 120 (H) 12/17/2019 Estimated Creatinine Clearance: 18 mL/min (A) (by C-G formula based on SCr of 2.8 mg/dL (H)). WBC: Lab Results Component Value Date WBC 10.82 12/17/2019 WBC 15.02 (H) 12/16/2019 Vitals: 12/19/19 0802 12/19/19 1200 12/19/19 1900 12/20/19 0444 BP: (!) 124/95 161/90 169/82 114/69 Pulse: 77 69 64 74 Resp: 18 18 18 18 Temp: 97 ??F (36.1 ??C) 97.5 ??F (36.4 ??C) 97.9 ??F (36.6 ??C) 98.3 ??F (36.8 ??C) TempSrc: Oral Oral Oral Oral SpO2: 96% 97% 95% 94% Weight: Height: Other Pertinent Labs: Recent Labs Units 12/17/19 1002 12/17/19 0820 LACTICA mmol/L 2.4* 2.8* Recent Labs Units 12/18/19 0131 CRP mg/L 6.0* Microbiology Results for this Admission Procedure Component Value Units Date/Time Culture, Urine [[id number]] Collected: 12/16/192058 Order Status: Completed Specimen: Urine Updated: 12/19/19957 CULTURE RESULTS NO GROWTH WITHIN 2 DAYS Current Inpatient/Outpatient Systemic Antibiotics Penicillin Combinations Start End piperacillin-tazobactam (ZOSYN) IVPB 3.375 g 12/17/2019 3.375 g, Intravenous, EVERY 12 HOURS @ 12.5 mL/hr, Renally adjusted for cr. Cl 10.1 No results found for: VANCOMYCINTR Lab Results Component Value Date VANCOMYCIN 19 12/19/2019 VANCOMYCIN 17 12/18/2019 VANCOMYCIN 16 12/17/2019 Current Vanco Regimen: Serial dosing 1250 mg 12/15 @ 1730 750mg On 12/16 and 12/17 Assessment/Plan: Patient's renal function is poor Will follow closely Vanco doses will require frequent levels 12/15 Vanco 1250 mg to be given today @1730 12/16 Level @1630 was 16 Give 750mg supplemental dose 12/17 Level was 17 at 1900 Therapeutic Give 750mg suppement on 12/17 at 2157 12/18 Level as 19 at 2200 No dose today Next level on 12/19 at 2200 Thank you for the consult * Plan of Care - Edgar Sandhu RN - 12/20/2019 1:12 AM CDT Problem: Adult Inpatient Plan of Care Goal: Plan of Care Review Outcome: Ongoing (see interventions/notes) Goal: Absence of Hospital-Acquired Illness or Injury Outcome: Ongoing (see interventions/notes) Goal: Optimal Comfort and Wellbeing Outcome: Ongoing (see interventions/notes) Goal: Readiness for Transition of Care Outcome: Ongoing (see interventions/notes) Goal: Rounds/Family Conference Outcome: Ongoing (see interventions/notes) Problem: Infection Goal: Infection Symptom Resolution Outcome: Ongoing (see interventions/notes) * Plan of Care - Quintin Vizcarra RN - 12/19/2019 11:02 AM CDT Problem: Adult Inpatient Plan of Care Goal: Plan of Care Review Outcome: Ongoing (see interventions/notes) Goal: Absence of Hospital-Acquired Illness or Injury Outcome: Ongoing (see interventions/notes) Goal: Optimal Comfort and Wellbeing Outcome: Ongoing (see interventions/notes) Goal: Readiness for Transition of Care Outcome: Ongoing (see interventions/notes) Goal: Rounds/Family Conference Outcome: Ongoing (see interventions/notes) * Plan of Care - Caren Boyce PTA - 12/19/2019 10:56 AM CDT Problem: Adult Inpatient Plan of Care Goal: PT - Goal Description: Patient will be seen by PT 6 days a week to address impairments and functional limitations. Treatments to include: therapeutic exercise, balance re-education, bed mobility, transfer training, gait training, and/or neuromuscular re-education. All goals written to return patient to prior level of function and progress patient towards functional independence in home and community environments with regard to discharge destination and available assistance: PT Goals: Pt to require sup for bed mobility. By: CAREN BOYCE PTA; 12/19/2019, 10:55 AM CDT Pt to require sup for transfers using AD as needed. By: CAREN BOYCE PTA; 12/19/2019, 10:55 AM CDT Pt to ambulate 150 feet with sup using AD as needed. Pt to tolerate at least 15 min of therapeutic activity/balance activity/neuro re-education/gait training/therapeutic exercise. By: CAREN BOYCE PTA; 12/19/2019, 10:55 AM CDT Pt to ascend and descend stairs per D/C destination set up as appropriate. Patient Goal: Return home By: Chayo Sutton PT, DPT 12/18/2019, 5:29 PM CDT Outcome: Ongoing (see interventions/notes) PT TREATMENT NOTE Recommendations: Anticipate discharge to Home with increased supervision and assistance. DME recommendations include 2ww. Recommendations for floor staff: CGA Post-evaluation therapy recommendations communicated with nursing. Subjective: Pt was in chair upon enter with ingram and IV. Pt stated that she was feeling better. Pain: Pt reported no pain. Precautions: Fall, R side weakness. Observations: Patient was seen in patient room 4172. Treatment: Bed Mobility: Mod I Transfers/Gait: Sit to stand transfers with Mod I using 2ww. Ambulated 145 feet with CGA using 2ww. Therapeutic Exercise: Bilateral LE exercises 1x10 reps of: Supine/long sitting ankle pumps, heel slides, hip abd/add slides, SLR; Seated heel/toe raises, hip abd/add, marching, LAQ. Neurological Re-Education: na Assessment: Pt completed all short and long seated ex's, the R side has weakness from previous stroke. Pt stood with some imbalance, she is impulsive and needs reminders for hand placement. She ambulated to the bed with CGA/2ww; she was Mod I with bed mobility. She began ambulation with unsteadiness and the R foot toe drop/shuffle; vcing for R great toe pull was given and pt was able to comply and continue throughout the walk. She ambulated with decent balance, when distracted she would be slightly off, but did well with the walker. On return to the room pt vomited, she had not given any warning, she stated that it just happened out of no where. Press Operator Assistant cleaned pt, floor, chair, changed her gown and returned her to bed. Nurse was notified. Patient Progress: good Tolerance: good Patient would benefit from continued therapy for 5-8 days to address gait, balance and stairs. Plan: continue Gait belt used during all transfers and gait. Patient left in bed with bed alarm on and call light in reach. Start Time: 1000 Stop Time: 1045 Total Time: 30 minutes Interventions: therex and gait By: CAREN BOYCE PTA; 12/19/2019, 10:56 AM CDT * Interdisciplinary - Germain Jean, [facility] - 12/19/2019 6:48 AM CDT Images from the original note were not included. Pharmacokinetic Consult - Vancomycin Date of Consult: 12/16/19 Day of therapy:4 Vancomycin Indication: Sepsis Vancomycin Goal Trough: 15-20 Renal Function: Lab Results Component Value Date CREATININE 3.80 (H) 12/18/2019 CREATININE 5.00 (H) 12/17/2019 CREATININE 5.30 (H) 12/16/2019 Lab Results Component Value Date BUN 94 (H) 12/18/2019 BUN 120 (H) 12/17/2019 BUN 129 (H) 12/16/2019 Estimated Creatinine Clearance: 13.3 mL/min (A) (by C-G formula based on SCr of 3.8 mg/dL (H)). WBC: Lab Results Component Value Date WBC 10.82 12/17/2019 WBC 15.02 (H) 12/16/2019 Vitals: 12/18/19 0700 12/18/19 1300 12/18/19 2100 12/19/19 0412 BP: 133/81 156/88 151/82 136/81 Pulse: 67 87 71 70 Resp: 18 18 18 16 Temp: 98.1 ??F (36.7 ??C) 97.6 ??F (36.4 ??C) 98.2 ??F (36.8 ??C) 98.1 ??F (36.7 ??C) TempSrc: Oral Oral Oral Oral SpO2: 96% 96% 93% 94% Weight: Height: Other Pertinent Labs: Recent Labs Units 12/17/19 1002 12/17/19 0820 12/17/19 0501 LACTICA mmol/L 2.4* 2.8* 1.4 Recent Labs Units 12/18/19 0131 CRP mg/L 6.0* Microbiology Results for this Admission Procedure Component Value Units Date/Time Culture, Urine [[id number]] Collected: 12/16/192058 Order Status: Completed Specimen: Urine Updated: 12/18/19728 CULTURE RESULTS NO GROWTH WITHIN 1 DAY Current Inpatient/Outpatient Systemic Antibiotics Penicillin Combinations Start End piperacillin-tazobactam (ZOSYN) IVPB 3.375 g 12/17/2019 3.375 g, Intravenous, EVERY 12 HOURS @ 12.5 mL/hr, Renally adjusted for cr. Cl 10.1 No results found for: VANCOMYCINTR Lab Results Component Value Date VANCOMYCIN 17 12/18/2019 VANCOMYCIN 16 12/17/2019 Current Vanco Regimen: Serial dosing 1250 mg 12/15 @ 1730 750mg On 12/16 and 12/17 Assessment/Plan: Patient's renal function is poor Will follow closely Vanco doses will require frequent levels 12/15 Vanco 1250 mg to be given today @1730 12/16 Level @1630 was 16 Give 750mg supplemental dose 12/17 Level was 17 at 1900 Therapeutic Give 750mg suppement on 12/17 at 2157 Next level on 12/17 at 1900 Thank you for the consult * Plan of Care - Edgar Sandhu RN - 12/18/2019 11:22 PM CDT Problem: Adult Inpatient Plan of Care Goal: Plan of Care Review Outcome: Ongoing (see interventions/notes) Goal: Absence of Hospital-Acquired Illness or Injury Outcome: Ongoing (see interventions/notes) Goal: Optimal Comfort and Wellbeing Outcome: Ongoing (see interventions/notes) Goal: Readiness for Transition of Care Outcome: Ongoing (see interventions/notes) Goal: Rounds/Family Conference Outcome: Ongoing (see interventions/notes) Problem: Infection Goal: Infection Symptom Resolution Outcome: Ongoing (see interventions/notes) * Interdisciplinary - Chayo Sutton, PT - 12/18/2019 3:06 PM CDT PT EVALUATION NOTE Recommendations ??? Recommend discharge to: TBD pending medical progress ??? DME recommendations include: To be determined ??? Post-evaluation therapy recommendations communicated with patient Subjective: The patient agreed to PT eval. Son provides history as pt wakes (okay per pt). Nursing agreeable to eval. Pt reports feeling LH/dizzy at EOB, decreases. Pt then vomits while sitting EOB. Pt laid back down in supine and session ended. Home Environment and Prior Level of Function: Pt normally lives alone, will now live with family, unsure which family member she will be staying with yet, will likely have ALBERT, ambulated occasionallyusing a walker, owns 2WW, ind ADLs, son does shopping mainly because of COVID, pt does some cleaning and cooking, son works at a restaurant and will bring pt meals also, son states pt has weakness inR arm from past surgery and stroke. Pain: ?? None stated Examination: ?? History of present illness: This is a 69 y.o. year old female who was admitted to [facility] on 12/16/2019 for fatigue, weakness. ?? Relevant PMHx includes: has no past medical history on file. ??? Observations: Patient was seen bedside with son present. Medical equipment includes IV, alarm, ingram. ??? Precautions: fall, has L1 compression fracture, alarm ??? Cognition: questionable ??? Proprioception: Intact ??? Coordination o Gross Motor: Impaired ??? Sensation: no N/T ??? ROM: WFL except decreased R UE AROM ??? Strength: gen weak ??? Bed Mobility o Supine > sit: min-mod A of 1 o Sit > supine: SBA o Sits EOB with varying assist from min A initially to sup ??? Balance o Sitting - Static: fair - Dynamic: fair o Standing - Static: unknown - Dynamic: unknown ??? Endurance: poor-fair ??? Other: Fall Risk Assessment score - 29 Assessment: This is a 69 y.o. year old female who was admitted to [facility] on 12/16/2019 for fatigue, weakness. Patient will benefit from acute skilled physical therapy while in the hospital to address deficits that include Weakness, Decreased endurance, Decreased strength, Decreased range of motion and Impaired balance, which limit patient's function at home and in the community. The patient's therapyprognosis is fair. Strengths of this patient include Family support and Good participation/motivation. Anticipate patient will progress with therapeutic intervention. See Care Plan for goals. Patient History (# of co-morbidities): 3+ # of Body Systems Examined: 4 Clinical Presentation (Stable/Evolving/Unstable): Evolving Clinical Decision Making/Standardized Assessment Tool: FRA Evaluation Complexity Level based on APTA standards: Moderate Patient left in bed with call light and bedside table in reach. Bed alarm activated. RN notified ofsession findings. Start Time: 1503 Stop Time: 1522 Total: 19 minutes Interventions provided: PT Evaluation By: CHAYO SUTTON PT, DPT; 12/18/2019, 3:06 PM CDT * Interdisciplinary - Tona Valadez - 12/18/2019 2:06 PM CDT Initial DC Plan Assessment ANTICIPATED DISCHARGE PLAN: Home - with family (either at her home, or at family's home) - Monitor for HHC needs; Referral to [facility] for homemaking services. Monitor for possible IVAB at d/c TRANSPORTATION: Car with Family PCP F/U APPT: As directed Discharge Needs Score: Total Score: 15 DC ASSESSMENT: CM reviewed chart and met with patient and son to discuss discharge plan. Patient is admitted for: MOIRA Patient resides at home alone in [place], [place]. She has a son who lives nearby and is supportive ofpatient and her needs. He states that he does the shopping, errands and yardwork for patient. Patient has a cane to use for mobility as needed. Patient denies any home care services. Patient is established with Dr. Valdivia as PCP, and uses [facility] in [place] without any issues or concerns. CM discussed post-acute care options with patient and son, including Home Health Care and Homemaking Services through [facility] ([facility], ). Son states that the patient will either be going to his home at the time of discharge, or someone will be staying at her home with her, as they are still working out the details. CM advised the son that we do have the [facility] [place], where family can stay as they are traveling out of town to see her. CM to follow patient for possible HHC needs closer to discharge. [facility]HC services in the [facility] Home Care - [facility] Home Health - [facility] HHC - [facility] Care [facility] - [facility] CM also contacted [facility] in [place], to obtain the contact number for the Community Care Program that services [facility]. This program is run out of the [facility][Note 3], . CM explained to patient and son that they may be eligible for home-based services. Information provided on AVS for patient. CM to follow. Electronically Signed By: TONA VALADEZ; 12/18/2019, 2:06 PM CDT * Plan of Care - Quintin Vizcarra RN - 12/18/2019 12:35 PM CDT Problem: Adult Inpatient Plan of Care Goal: Plan of Care Review Outcome: Ongoing (see interventions/notes) Goal: Absence of Hospital-Acquired Illness or Injury Outcome: Ongoing (see interventions/notes) Goal: Optimal Comfort and Wellbeing Outcome: Ongoing (see interventions/notes) Goal: Readiness for Transition of Care Outcome: Ongoing (see interventions/notes) Goal: Rounds/Family Conference Outcome: Ongoing (see interventions/notes) * Interdisciplinary - Pamella Larsen - 12/18/2019 11:[address] rosas re consult, read qliq * Plan of Care - Prabhjot Dhaliwal RN - 12/18/2019 5:02 AM CDT Problem: Adult Inpatient Plan of Care Goal: Plan of Care Review Outcome: Ongoing (see interventions/notes) Problem: Adult Inpatient Plan of Care Goal: Absence of Hospital-Acquired Illness or Injury Outcome: Ongoing (see interventions/notes) Problem: Adult Inpatient Plan of Care Goal: Optimal Comfort and Wellbeing Outcome: Ongoing (see interventions/notes) Problem: Adult Inpatient Plan of Care Goal: Readiness for Transition of Care Outcome: Ongoing (see interventions/notes) Problem: Infection Goal: Infection Symptom Resolution Outcome: Ongoing (see interventions/notes) * Alexis - Germain Jean [facility] - 12/17/2019 6:20 PM CDT Images from the original note were not included. Pharmacokinetic Consult - Vancomycin Date of Consult: 12/16/19 Day of therapy:2 Vancomycin Indication: Sepsis Vancomycin Goal Trough: 15-20 Renal Function: Lab Results Component Value Date CREATININE 5.00 (H) 12/17/2019 CREATININE 5.30 (H) 12/16/2019 CREATININE 5.70 (H) 12/16/2019 Lab Results Component Value Date BUN 120 (H) 12/17/2019 BUN 129 (H) 12/16/2019 BUN 137 (H) 12/16/2019 Estimated Creatinine Clearance: 10.1 mL/min (A) (by C-G formula based on SCr of 5 mg/dL (H)). WBC: Lab Results Component Value Date WBC 10.82 12/17/2019 WBC 15.02 (H) 12/16/2019 Vitals: 12/17/19 0449 12/17/19 0549 12/17/19 0649 12/17/19 1024 BP: 102/61 141/68 129/70 97/64 Pulse: 61 82 Resp: Temp: 97.7 ??F (36.5 ??C) 98.1 ??F (36.7 ??C) TempSrc: Oral SpO2: 96% 95% 95% 92% Weight: Height: Other Pertinent Labs: Recent Labs Units 12/17/19 1002 12/17/19 0820 12/17/19 0501 LACTICA mmol/L 2.4* 2.8* 1.4 No results for input(s): CRP in the last 72 hours. Microbiology Results for this Admission None Current Inpatient/Outpatient Systemic Antibiotics Penicillin Combinations Start End piperacillin-tazobactam (ZOSYN) IVPB 3.375 g 12/17/2019 3.375 g, Intravenous, EVERY 12 HOURS @ 12.5 mL/hr, Renally adjusted for cr. Cl 10.1 No results found for: VANCOMYCINTR Lab Results Component Value Date VANCOMYCIN 16 12/17/2019 Current Vanco Regimen: Serial dosing 1250 mg 12/15 @ 1730 Assessment/Plan: Patient's renal function is poor Will follow closely Vanco doses will require frequent levels 12/15 Vanco 1250 mg to be given today @1730 12/16 Level @1630 was 16 Give 750mg supplemental dose Next level on 12/17 at 1900 Thank you for the consult * Interdisciplinary - Nick Vidal Dietetic Intern - 12/17/2019 3:06 PM CDT Limited Nutrition Assessment RD Signature: Gonzalo AYALAetic Intern; 12/17/2019, 3:06 PM CDT Nutrition Diagnosis: Predicted inadequate energy intake related to decreased ability to consume sufficient energy as evidenced by altered mental status. Nutrition Intervention Nutrition Prescription: Energy Needs: dosing wt 64.3 kg, 25-30 kcals/kg = 1608- 1929 kcals/day Protein Needs: dosing wt 64.3kg, 1.2-1.4 g/kg = 77-90 grams protein/day Fluid Needs: dosing wt 64.3kg, 25 ml/kg = 1608 mls/day Intervention: Food and/or Nutrient Delivery- Liberalize to general diet. Monitoring and Evaluation Goals: Food and/or Nutrient History Outcomes- Pt is to meet >75% of EER and protein needs by 12/23. Discharge Recommendations and Plan: General diet. Nutrition Status Classification: NS-2 Follow-up: 5-7 days Nutrition Assessment triggered by: MST Score- 2 or greater. Client History and HPI LOS: 1 day Principle Problem: MOIRA Hospital Problem List: Active Problems: UTI (urinary tract infection) MOIRA (acute kidney injury) (HCC) Pertinent PMH: Depression, HTN, ischemic stroke with resulting memory problems. Food/Nutrition Related History: Subjective: Pt is a 69 year old female admitted to [facility] with fatigue and weakness. Upon admission, she was found to have acute renal failure. Additionally, she was found to have hypernatremia with a Na of 161. Her urinalysis is suggestive of a UTI. Geriatric Nurse Assistant met with Pt and relative (son) to discuss nutritional status. Pt appears to be a poor historian. Pt could did not recall any dietary intake. She reported no N/V, appetite, or weight changes. Will liberalize diet to encourage better PO intake. Will follow up with Pt to ensure that she is meting nutritional needs. Pt has no food allergies. Pt has no difficulty chewing/swallowing. Note: Pt has poor dentition. Last BM on 12/17/19. I/Os:-879 mL. Diet Orders (From admission, onward) Start Ordered 12/16/19 1700 Diet Cardiac Restrictions: Cardiac Prudent DIET EFFECTIVE NOW Question: Restrictions: Answer: Cardiac Prudent 12/16/19 1659 Anthropometrics Height: 5' 6 (167.6 cm) Admit Wt: 64.3 kg Current Weight: 141 lb 12.8 oz (64.3 kg) Usual Wt: Unknown (Neither Pt nor relative could recall) Wt History: Limited -141 lb 12.8 oz - (12/16/19) - 142 lb 12.8 oz - (08/27/19) -132 lb 12.8 oz - (12/20/18) Body mass index is 22.89 kg/m??. Wt Change: 1 lb Time Period: ~3 months. Weight Gain: <1% Significant per time period: no. Biochemical Tests, Medical Data, and Procedures Pertinent Labs: Sodium 156 (H), Chloride 125 (H), BUN 120 (H), Creatinine 5.00 (H), Albumin 2.7 (L), Glucose 117 (H). Pertinent Meds: Dextrose 5% solution 100 mL/hr (408 kcal). Pertinent Procedures: Reviewed. Nutrition Focused Physical Findings Fat Loss: Slight depression in orbital region. Otherwise, unremarkable. Muscle Loss: Acromion process protrudes. Calf muscle is not well developed. Skin: Intact, Kaden Score: 18. Functional Changes: Generalized weakness. Cosigned by Funmi Hastings RD, LDN at 12/18/2019 1:54 PM CDT Associated attestation - Funmi Hastings RD, LDN - 12/18/2019 1:54 PM CDT Assessment and intervention discussed with [employer] compliance internship. RD agrees with nutritional plan of care. * Plan of Care - Adrianne Valente RN - 12/17/2019 1:33 PM CDT Problem: Adult Inpatient Plan of Care Goal: Plan of Care Review Outcome: Ongoing (see interventions/notes) Goal: Absence of Hospital-Acquired Illness or Injury Outcome: Ongoing (see interventions/notes) Goal: Optimal Comfort and Wellbeing Outcome: Ongoing (see interventions/notes) Goal: Readiness for Transition of Care Outcome: Ongoing (see interventions/notes) Goal: Rounds/Family Conference Outcome: Ongoing (see interventions/notes) Problem: Infection Goal: Infection Symptom Resolution Outcome: Ongoing (see interventions/notes) * Interdisciplinary - Gene Hutchins RN - 12/16/2019 7:55 PM CDT 1900 pt alert to person place, time, and occasionally situation continued on ra no s/s of distress denies pain 1936 Dr. Sarmiento here to see pt orders placed. 0500 no s/s of distress By: GENE HUTCHINS RN; 12/17/2019, 7:06 AM CDT * Plan of Care - Gene Hutchins RN - 12/16/2019 7:47 PM CDT Problem: Adult Inpatient Plan of Care Goal: Plan of Care Review Outcome: Ongoing (see interventions/notes) Goal: Absence of Hospital-Acquired Illness or Injury Outcome: Ongoing (see interventions/notes) Intervention: Prevent VTE (venous thromboembolism) Flowsheets (Taken 12/16/2019 1900) VTE Prevention/Management: anticoagulant therapy initiated Goal: Optimal Comfort and Wellbeing Outcome: Ongoing (see interventions/notes) Intervention: Provide Person-Centered Care Flowsheets (Taken 12/16/2019 194) Trust Relationship/Rapport: care explained questions answered questions encouraged nonverbal communication acknowledged therapeutic presence provided thoughts/feelings acknowledged Goal: Readiness for Transition of Care Outcome: Ongoing (see interventions/notes) Goal: Rounds/Family Conference Outcome: Ongoing (see interventions/notes) Problem: Infection Goal: Infection Symptom Resolution Outcome: Ongoing (see interventions/notes) Intervention: Prevent or Manage Infection Flowsheets (Taken 12/16/2019 194) Infection Management: aseptic techniques maintained cultures obtained and sent to lab * Interdisciplinary - Abrahan Lange RPH - 12/16/2019 5:18 PM CDT Images from the original note were not included. Pharmacokinetic Consult - Vancomycin Date of Consult: 12/16/19 Day of therapy:1 Vancomycin Indication: Sepsis Vancomycin Goal Trough: 15-20 Renal Function: Lab Results Component Value Date CREATININE 5.70 (H) 12/16/2019 Lab Results Component Value Date BUN 137 (H) 12/16/2019 Estimated Creatinine Clearance: 8.8 mL/min (A) (by C-G formula based on SCr of 5.7 mg/dL (H)). WBC: Lab Results Component Value Date WBC 15.02 (H) 12/16/2019 Vitals: 12/16/19 1325 12/16/19 1327 12/16/19 1527 12/16/19 1649 BP: 116/70 97/63 118/69 Resp: 21 (!) 32 Temp: 97.3 ??F (36.3 ??C) 97.3 ??F (36.3 ??C) 97.1 ??F (36.2 ??C) TempSrc: Axillary Axillary SpO2: 93% 92% Weight: 141 lb 12.8 oz (64.3 kg) Height: 5' 6 (1.676 m) Other Pertinent Labs: Recent Labs Units 12/16/19 1603 LACTICA mmol/L 2.3* No results for input(s): CRP in the last 72 hours. Microbiology Results for this Admission None Current Inpatient/Outpatient Systemic Antibiotics Penicillin Combinations Start End piperacillin-tazobactam (ZOSYN) IVPB 3.375 g 12/16/2019 12/23/2019 3.375 g, Intravenous, EVERY 8 HOURS @ 12.5 mL/hr, Initial dose followed by (Piperacillin 4-5 gm) No results found for: VANCOMYCINTR No results found for: VANCOMYCIN Current Vanco Regimen: Serial dosing 1250 mg 12/15 @ 1730 Assessment/Plan: Patient's renal function is poor Will follow closely Vanco doses will require frequent levels Vanco 1250 mg to be given today @1730 Level to be drawn tomorrow @1630 Thank you for the consult ABRAHAN LANGE RPH; 12/16/2019, 5:18 PM CDT documented in this encounter Plan of Treatment Not on file documented as of this encounter Procedures Procedure Name Priority Date/Time Associated Diagnosis Comments PROTEIN ELECTROPHORESIS, UR, RANDOM, DMH Routine 12/21/2019 10:16 AM CDT UR SODIUM (NA) RANDOM Routine 12/21/2019 10:16 AM CDT UR CREATININE RANDOM Routine 12/21/2019 10:16 AM CDT UR OSMOLALITY STAT 12/21/2019 10:15 AM CDT CBC WITH AUTO DIFFERENTIAL Routine 12/21/2019 7:47 AM CDT RENAL FUNCTION PANEL (RFP) Routine 12/21/2019 7:47 AM CDT MAGNESIUM (MG) STAT 12/21/2019 7:47 AM CDT COMPLETE BLOOD COUNT (CBC) WITH DIFF Routine 12/21/2019 7:47 AM CDT ADJUSTED CALCIUM*[facility] Routine 12/21/2019 7:47 AM CDT VANCOMYCIN Timed 12/20/2019 10:08 PM CDT KAPPA/LAMBDA QUANT, ARUP [id number] Routine 12/20/2019 11:14 AM CDT PROTEIN ELECTROPHORESIS, SERUM, DMH Routine 12/20/2019 6:09 AM CDT RENAL FUNCTION PANEL (RFP) Routine 12/20/2019 6:09 AM CDT MAGNESIUM (MG) STAT 12/20/2019 6:09 AM CDT ADJUSTED CALCIUM*SAMC Routine 12/20/2019 6:09 AM CDT VANCOMYCIN Timed 12/19/2019 10:01 PM CDT UR PROTEIN/CREATININE RATIO Routine 12/19/2019 2:22 PM CDT CULTURE, BLOOD Routine 12/19/2019 11:29 AM CDT CULTURE, BLOOD Routine 12/19/2019 7:06 AM CDT PROCALCITONIN Routine 12/19/2019 6:12 AM CDT RENAL FUNCTION PANEL (RFP) Routine 12/19/2019 6:12 AM CDT MAGNESIUM (MG) STAT 12/19/2019 6:12 AM CDT ADJUSTED CALCIUM*[facility] Routine 12/19/2019 6:12 AM CDT VANCOMYCIN Timed 12/18/2019 6:36 PM CDT PROCALCITONIN Routine 12/18/2019 1:31 AM CDT CRP, DMH/SHS Routine 12/18/2019 1:31 AM CDT RENAL FUNCTION PANEL (RFP) Routine 12/18/2019 1:31 AM CDT MAGNESIUM (MG) STAT 12/18/2019 1:31 AM CDT ADJUSTED CALCIUM*[facility] Routine 12/18/2019 1:31 AM CDT VANCOMYCIN Timed 12/17/2019 5:[address] ABDOMEN PELVIS W/O CONTRAST Routine 12/17/2019 2:37 PM CDT LACTIC ACID (LACTATE) Timed 12/17/2019 10:02 AM CDT LACTIC ACID (LACTATE) Timed 12/17/2019 8:20 AM CDT CBC WITH AUTO DIFFERENTIAL Routine 12/17/2019 5:01 AM CDT RENAL FUNCTION PANEL (RFP) Routine 12/17/2019 5:01 AM CDT MAGNESIUM (MG) Routine 12/17/2019 5:01 AM CDT LACTIC ACID (LACTATE) Timed 12/17/2019 5:01 AM CDT COMPLETE BLOOD COUNT (CBC) WITH DIFF Routine 12/17/2019 5:01 AM CDT ADJUSTED CALCIUM*[facility] Routine 12/17/2019 5:01 AM CDT LACTIC ACID (LACTATE) Timed 12/16/2019 10:38 PM CDT URINALYSIS MICROSCOPIC IF INDICATED Routine 12/16/2019 8:59 PM CDT UR SODIUM (NA) RANDOM Routine 12/16/2019 8:59 PM CDT UR OSMOLALITY STAT 12/16/2019 8:59 PM CDT UR CREATININE RANDOM Routine 12/16/2019 8:59 PM CDT CULTURE, URINE Routine 12/16/2019 8:59 PM CDT US RENAL COMPLETE Routine 12/16/2019 8:1 0 PM CDT PROCALCITONIN Timed 12/16/2019 7:22 PM CDT LACTIC ACID (LACTATE) Timed 12/16/2019 7:22 PM CDT CMP (COMPREHENSIVE METABOLIC PANEL) Routine 12/16/2019 7:22 PM CDT ADJUSTED CALCIUM*[facility] Routine 12/16/2019 7:22 PM CDT LACTIC ACID (LACTATE) Timed 12/16/2019 4:03 PM CDT BLOOD GASES, ARTERIAL W/ O2 SATURATION STAT 12/16/2019 3:50 PM CDT PROCALCITONIN STAT 12/16/2019 1:58 PM CDT CBC WITH AUTO DIFFERENTIAL STAT 12/16/2019 1:58 PM CDT PHOSPHORUS (PO4) STAT 12/16/2019 1:58 PM CDT MAGNESIUM (MG) STAT 12/16/2019 1:58 PM CDT CMP (COMPREHENSIVE METABOLIC PANEL) STAT 12/16/2019 1:58 PM CDT COMPLETE BLOOD COUNT (CBC) WITH DIFF STAT 12/16/2019 1:58 PM CDT ADJUSTED CALCIUM*[facility] Routine 12/16/2019 1:58 PM CDT documented in this encounter Results * (ABNORMAL) Protein Electrophoresis, Ur Random, DMH (12/21/2019 10:16 AM CDT) PROTEIN QUANT URINE 105.6(H) 0 - 14 mg/dL 12/26/2019 1:15 PM CDT [facility] % ALBUMIN 51.7 % 12/26/2019 1:15 PM CDT [facility] % ALPHA 1 10.3 % 12/26/2019 1:15 PM CDT [facility] % ALPHA 2 6.7 % 12/26/2019 1:15 PM CDT [facility] PATHOLOGIST INTERPRETATION Non-selective proteinuria. ??No monoclonal proteins detected. Reviewed by Dr. Santo. 12/26/2019 1:15 PM CDT [facility] % BETA 19.7 % 12/26/2019 1:15 PM CDT [facility] % GAMMA GLOBULIN 11.7 % 12/26/19 20 1:15 PM CDT [facility] Urine Non-Phlebotomy Collection / Unknown 12/21/2019 10:16 AM CDT 12/21/2019 10:16 AM CDT us Alex Sarmiento MD CHEMISTRY ORDERABLES Final Re sult [facility] [address] [place] [address] * Ur Sodium (Na) Random (12/21/2019 10:16 AM CDT) Only the most recent of2 resultswithin the time period is included. SODIUM, RANDOM URINE 113 >=0 mmol/L 12/21/2019 10:48 AM [facility] Comment: No reference range available for random specimens. No reference range has been established. Consider Clinical Correlation. Urine Non-Phlebotomy Collection / Unknown 12/21/2019 10:16 AM CDT 12/21/2019 10:16 AM CDT Alex Sarmiento MD URINE ORDERABLES Final Result Performing Organization Address [facility] [facility] [place] [address] * Ur Creatinine Random (12/21/2019 10:16 AM CDT) Only the most recent of2 resultswithin the time period is included. CREATININE URINE 46.0 >=0.0 mg/dL 12/21/2019 10:48 AM T [facility] Comment:No reference range a vailable for random specimens. Urine Non-Phlebotomy Collection / Unknown 12/21/2019 10:16 AM CDT 12/21/2019 10:16 AM CDT Alex Sarmiento MD URINE ORDERABLES Final Result Performing Organization Address [facility] [place] [address] * Ur Osmolality (12/21/2019 10:15 AM CDT) Only the most recent of2 resultswithin the time period is included. OSMOLALITY, URINE 355 300 - 900 mOsm/kg 12/21/2019 11:29 AM [facility] Comment: Reference ranges (mOsm/Kg): 300-900 for average fluid intake >850 for restricted fluid intake Urine Non-Phlebotomy Collection / Unknown 12/21/2019 10:15 AM CDT 12/21/2019 10:15 AM CDT Alex Sarmiento MD URINE ORDERAB[place] [address] * Adjusted Calcium *Samc (12/21/2019 7:47 AM CDT) Only the most recent of7 resultswithin the time period is included. ADJUSTED CALCIUM 9.4 8.8 - 10.0 mg/dL 12/21/2019 9:00 AM T [facility] Blood Venipuncture / Unknown 12/21/2019 7:47 AM CDT 12/21/2019 8:10 AM CDT Alex Sarmiento MD CHEMISTRY ORDERABLES Final Re sult Performing Organization Address [facility]/ZIP [place] [address] * (ABNORMAL) CBC with Auto Differential (12/21/2019 7:47 AM CDT) Only the most recent of3 resultswithin the time period is included. WBC 8.11 3.90 - 11.00 10(3)/mcL 12/21/2019 8:16 AM [facility] RBC 3.93 3.80 - 5.20 10(6)/mcL 12/21/2019 8:16 AM [facility] HEMOGLOBIN (HGB) 11.9 11.7 - 16.0 g/dL 12/21/2019 8:16 AM [facility] HEMATOCRIT (HCT) 37.7 34.9 - 46.9 % 12/21/2019 8:16 AM [facility] MCV 95.9 80.0 - 100.0 fL 12/21/2019 8:16 AM [facility] MCH 30.3 26.5 - 33.9 pg 12/21/2019 8:16 AM [facility] MCHC 31.6 31.5 - 36.0 g/dL 12/21/2019 8:16 AM [facility] PLATELET COUNT 143 140 - 445 10(3)/mcL 12/21/2019 8:16 AM [facility] MPV 12.5 >=0.0 fL 12/21/2019 8:16 AM [facility] RDW 13.9 12.0 - 15.0 % 12/21/2019 8:16 AM [facility] NEUTROPHILS 66.2 % 12/21/2019 8:16 AM [facility] LYMPHOCYTES 18.0 % 12/21/2019 8:16 AM [facility] MONOCYTES 7.6 % 12/21/2019 8:16 AM [facility] EOSINOPHILS 7.3 % 12/21/2019 8:16 AM [facility] IMMATURE GRANULOCYTE % 0.5 % 12/21/2019 8:16 AM [facility] BASOPHILS 0.4 % 12/21/2019 8:16 AM [facility] ABSOLUTE NEUTROPHILS 5.37 1.40 - 7.30 10(3)/mcL 12/21/2019 8:16 AM [facility] ABSOLUTE LYMPHOCYTES 1.46 1.30 - 2.90 10(3)/mcL 12/21/2019 8:16 AM [facility] ABSOLUTE MONOCYTES 0.62 0.10 - 0.80 10(3)/mcL 12/21/2019 8:16 AM [facility] ABSOLUTE EOSINOPHIL 0.59(H) 0.00 - 0.30 10(3)/mcL 12/21/2019 8:16 AM [facility] ABSOLUTE BASOPHILS 0.03 0.00 - 0.10 10(3)/mcL 12/21/2019 8:16 AM [facility] ABSOLUTE IMMATURE GRANULOCYTE 0.04 0.00 - 0.10 10 (3) mcL. 12/21/2019 8:16 AM [facility] NRBC PER 100 WBC 0.0 0.0 - 0.0 % 12/21/2019 8:16 AM [facility] ABSOLUTE NRBC 0.00 10 (3) mcL. 12/21/2019 8:16 AM [facility] Blood Venipuncture / Unknown 12/21/2019 7:47 AM CDT 12/21/2019 8:10 AM CDT us Brenda Oseguera APRN, SARAH HEMATOLOGY ORDERAB LES Final Result [facility] [address] [place] [address] * (ABNORMAL) Renal Function Panel (RFP) (12/21/2019 7:47 AM CDT) Only the most recent of5 resultswithin the time period is included. SODIUM 147(H) 133 - 145 mmol/L 12/21/2019 8:52 AM [facility] POTASSIUM 3.9 3.5 - 5.1 mmol/L 12/21/2019 8:52 AM [facility] CHLORIDE 115(H) 96 - 108 mmol/L 12/21/2019 8:52 AM [facility] CO2, VENOUS 25 21 - 32 mmol/L 12/21/2019 8:52 AM [facility] ANION GAP 10.9 10.0 - 20.0 mmol/L 12/21/2019 8:52 AM [facility] GLUCOSE 103 80 - 115 mg/dL 12/21/2019 8:52 AM [facility] Comment: Venipuncture should occur prior to administration of sulfasalazine and/or sulfapyridine. Glucose can be falsely depressed after administration of sulfasalazine, and falsely elevated with administration of sulfapyridine. BUN 25(H) 6 - 19 mg/dL 12/21/2019 8:52 AM [facility] CREATININE, BLOOD 2.10(H) 0.40 - 1.10 mg/dL 12/21/2019 8:52 AM [facility] BUN/CREATININE RATIO 12 12 - 20 ratio 12/21/2019 8:52 AM [facility] ALBUMIN 2.7(L) 3.4 - 4.8 g/dL 12/21/2019 8:52 AM [facility] CALCIUM 8.4(L) 8.8 - 10.0 mg/dL 12/21/2019 8:52 AM [facility] Comment:Calcium low. Correct ed calcium to follow. PHOSPHORUS 3.2 2.6 - 4.5 mg/dL 12/21/2019 8:52 AM CDT [facility] GFR, EST. NONAFRICAN 23 12/21/2019 8:52 AM T [facility] Comment: Reference interval for MDRD GFR: GFR >=60: Satisfactory kidney function GFR <60: Chronic kidney disease GFR <15: Kidney failure Estimated GFR may be less reliable in patients >70yr, women, patients with serious comorbid conditions, or patients with extremes of body size, muscle mass, or nutritional status. Revised 06/12/07 (National Kidney Disease Education Program) GFR, EST. 28(L) >=60 020 8:52 AM T [facility] Comment: Reference interval for MDRD GFR: GFR >=60: Satisfactory kidney function GFR <60: Chronic kidney disease GFR <15: Kidney failure Estimated GFR may be less reliable in patients >70yr, women, patients with serious comorbid conditions, or patients with extremes of body size, muscle mass, or nutritional status. Revised 06/12/07 (National Kidney Disease Education Program) Blood Venipuncture / Unknown 12/21/2019 7:47 AM CDT 12/21/2019 8:10 AM CDT us Alex Sarmiento MD CHEMISTRY ORDERABLES Final Re sult Performing Organization Address City/[facility] Co de Phone Number [address] [address] * Magnesium (Mg) (12/21/2019 7:47 AM CDT) Only the most recent of6 resultswithin the time period is included. MAGNESIUM 1.9 1.6 - 2.6 mg/dL 12/21/2019 8:52 AM CDT [facility] Blood Venipuncture / Unknown 12/21/2019 7:47 AM CDT 12/21/2019 8:10 AM CDT us Lissette Saul MD CHEMISTRY ORDERABLES F inal Result Performing Organization Address City/State/[facility] Co de Phone Number [address] [phone] * Vancomycin Level (12/20/2019 10:08 PM CDT) Only the most recent of4 resultswithin the time period is included. VANCOMYCIN RESULT 15 5 - 40 mcg/mL 12/20/2019 10:52 PM CDT [facility] Blood Venipuncture / Unknown 12/20/2019 10:08 PM CDT 12/20/2019 10:23 PM CDT us Giovanny Corona MD CHEMISTRY ORDERABLES Tiki l Result Performing Organization Address [facility] de Phone Number [address] [address] * (ABNORMAL) [place]/[employer] Light Chains, [id number] (12/20/2019 11:14 AM CDT) Pathologist [facility] KAPPA QNT FREE LIGHT CHAINS 46.45(H) 3.30 - 19.40 mg/L 12/23/2019 4:48 PM CDT [facility] Comment: INTERPRETIVE INFORMATION: [place] Qnt Free Light Chains Undetected antigen excess is a rare event but cannot be excluded. Free light chain results should always be interpreted in conjunction with other clinical and laboratory findings. LAMBDA QNT FREE LIGHT CHAINS 32.63(H) 5.71 - 26.30 mg/L 12/23/2019 4:[address] [facility] KAPPA/LAMBDA FREE LIGHT CHAIN RATIO 1.42 0.26 - 1.65 12/23/2019 4:48 PM CDT [facility] Comment: Performed By: [employer] [address] [place] [id number] Processing Engineer: Aneta Johnson MD Blood Venipuncture / Unknown 12/20/2019 11:14 AM CDT 12/20/2019 11:36 AM CDT us Alex Sarmiento MD LAB SEND OUTS Final Result Performing Organization Address City/[facility]/ZIP Co de Phone Number [facility] [address] [place] [address] * (ABNORMAL) Protein Electrophoresis, Serum DM (12/20/2019 6:09 AM CDT) Pathologist [facility] PROTEIN TOTAL 5.2(L) 6.0 - 8.2 g/dL 12/23/2019 10:47 AM [facility] ALBUMIN SERUM 2.8(L) 3.4 - 4.8 g/dL 12/23/2019 10:47 AM [facility] ALPHA 1 0.3 0.1 - 0.5 g/dL 12/23/2019 10:47 AM [facility] ALPHA 2 0.9 0.4 - 0.9 g/dL 12/23/2019 10:47 AM [facility] BETA 0.6 0.4 - 1.2 g/dL 12/23/2019 10:47 AM [facility] GAMMA 0.7 0.6 - 1.7 g/dL 12/23/2019 10:47 AM [facility] PATHOLOGIST INTERPRETATION Hypoalbuminemia - Seen in hepatic/renal disorders, malnutrition, negative nitrogen balance, inflammation, torrez, myeloma. 12/23/2019 10:47 AM [facility] PATHOLOGIST COMMENT Reviewed by Dr. Rodriguez. 12/23/2019 10:47 AM [facility] A/G RATIO 1.2 1.1 - 2.2 12/23/2019 10:47 AM [facility] Blood Venipuncture / Unknown 12/20/2019 6:09 AM CDT 12/20/2019 10:00 AM CDT us Alex Sarmiento MD CHEMISTRY ORDERABLES Final Re sult [facility] [address] [place] [address] * (ABNORMAL) Ur Protein/Creatinine Ratio (12/19/2019 2:22 PM CDT) UR PROTEIN RAND, QT 106.3(H) 0.0 - 14.0 mg/dL 12/19/2019 3:13 PM CDT [facility] URINE CREATININE 60.0 mg/dL 12/19/2019 3:13 PM T [facility] URINE PROTEIN/CREATIN INE RATIO 1.77 12/19/2019 3:13 PM T [facility] Comment: Ratio calculation: Protein(mg/dl)/Creatinine(mg/dl). No reference range available. Urine Non-Phlebotomy Collection / Unknown 12/19/2019 2:22 PM CDT 12/19/2019 2:22 PM CDT Alex Sarmiento MD URINE ORDERABLES Final Result Performing Organization Address [facility] [place] [address] * Culture, Blood (12/19/2019 11:29 AM CDT) Only the most recent of2 resultswithin the time period is included. CULTURE RESULTS NO GROWTH WITHIN 5 DAYS, FINAL RESULT 12/24/2019 1:01 PM CDT [facility] Culture BLOOD SPECIMEN / Unknown Venipuncture / Unknown 12/19/2019 11:29 AM CDT 12/19/2019 12:11 PM CDT Brenda Oseguera TABLEMAN, C.O.D. CLERK MICROBIOLOGY - GEN ERAL ORDERABLES Final Result Performing Organization Address City/[facility] [place] [address] * Procalcitonin - Daily x 3 days (12/19/2019 6:12 AM CDT) Only the most recent of4 resultswithin the time period is included. PROCALCITONIN 0.09 0.00 - 0.09 ng/mL 12/19/2019 8:09 AM T [facility] Comment: Procalcitonin Interpretive Guidelines: BACTERIAL BLOODSTREAM INFECTION EVALUATION ?? PCT VALUE INTERPRETATION <0.1 ng/ml ??= Negative, bacterial bloodstream infection highly unlikely (98% negative predictive value) 0.1 ng/ml to 0.5 ng/ml ??= ?? Low risk of bacterial bloodstream infection >0.5 ng/ml to 2 ng/ml ?? = ?Moderate risk of bacterial bloodstream infection >2 ng/ml to <10 ng/ml = ?? High risk of bacterial bloodstream infection >=10 ng/ml ?? = Bacterial bloodstream infection (with some exceptions*) *Neonates <48 hours of age, major trauma/surgery, severe torrez, invasive fungal infections, prolonged cardiogenic shock, and rare paraneoplastic syndromes LOWER RESPIRATORY TRACT INFECTION EVALUATION ?? PCT VALUE ??INTERPRETATION <0.1 ng/ml ??= ? Bacterial etiology very unlikely 0.1 ng/ml to 0.25 ng/ml ?= ?? Bacterial etiology unlikely >0.25 ng/ml to 0.5 ng/ml ?? = Bacterial etiology likely >0.5 ng/ml ?= ? Bacterial etiology very likely Reassessment 6-24 hours after initial draw is recommended for each indication. Blood Venipuncture / Unknown 12/19/2019 6:12 AM CDT 12/19/2019 7:03 AM CDT us Lissette Saul MD IMMUNOLOGY ORDERABLES Final Result Performing Organization Address [facility]/[place] [address] * (ABNORMAL) CRP, DMH (12/18/2019 1:31 AM CDT) C-REACITVE PROTEIN 6.0(H) 0.0 - 5.0 mg/L 12/18/2019 9:57 AM CDT [facility] Blood Venipuncture / Unknown 12/18/2019 1:31 AM CDT 12/18/2019 1:39 AM CDT us Brenda Oseguera TABLEMAN, C.O.D. CLERK CHEMISTRY ORDERABL ES Final Result Performing Organization Address [facility] [place] [address] * CT ABDOMEN PELVIS W/O CONTRAST (12/17/2019 2:37 PM CDT) Anatomical Region Laterality Modality Abdomen N/A Computed Tomogra phy Narrative 12/17/2019 2:51 PM CDT EXAMINATION: CT ABDOMEN PELVIS W/O CONTRAST 12/17/2019 HPI: 69-year-old female with weakness and fatigue. ??Hydronephrosis. ??Absent left kidney. ??Acute renal failure. COMPARISON: Ultrasound performed of the kidneys 12/16/2019 TECHNIQUE: Helical imaging of the ??abdomen and pelvis obtained without the intravenous administration of contrast. ?A dose lowering technique was used for this procedure, which may include, but is not limited to, dose reduction techniques, automated exposure controlled techniques, use of iterative reconstruction techniques, and ALARA or ALARA gently techniques. FINDINGS: LUNG BASES: Bibasilar atelectasis is present with small bilateral effusions HEPATOBILIARY: Liver is homogeneous in attenuation. ??No discrete hepatic lesions are seen. ??The pancreas is intact without pancreatic mass or peripancreatic inflammation. ??The gallbladder and extrahepatic biliary tree are intact. :The adrenal glands are normal size and morphology. ??The left kidney is atretic or hyperplastic. ??An indeterminate renal masses seen arising from the assess atretic left kidney measuring 10 mm in size. ??Bilateral intrarenal calculi are seen. ??An indeterminate lesion is seen of the lower pole the right kidney is well. ??These are not seen well enough on previous ultrasound to confirm a cystic or solid nature. ??Ingram catheter is present in a collapsed bladder. ??Urothelial thickening is seen of the right renal collecting system. GI: Ileus is present. ??No obstruction or free air is seen. ??No free fluid is identified. ??The appendix is within normal limits. ??The stomach is distended. LYMPHATICS: The spleen is within normal limits. ??No adenopathy is seen. VASCULAR: Severe peripheral vascular atherosclerotic calcific plaquing is present without aneurysm MUSCULOSKELETAL: L1 compression fracture is demonstrated the acuity of which is uncertain IMPRESSION 1. Atretic or hypoplastic left kidney. 2. Urothelial thickening on the right suggesting inflammation or infection. 3. Bilateral indeterminate renal masses. 4. Bilateral intrarenal calculi. 5. L1 compression fracture of uncertain acuity. 6. Bibasilar atelectasis with small bilateral effusions. Electronically signed by: Nick Gaytan MD Date of Signature: ??12/17/2019 14:51:13 Procedure Note Nick Gaytan MD - 12/17/2019 EXAMINATION: CT ABDOMEN PELVIS W/O CONTRAST 12/17/2019 HPI: 69-year-old female with weakness and fatigue. Hydronephrosis. Absentleft kidney. Acute renal failure. COMPARISON: Ultrasound performed of the kidneys 12/16/2019 TECHNIQUE: Helical imaging of the abdomen and pelvis obtained without theintravenous administration of contrast. A dose lowering technique was used for this procedure, which mayinclude, but is not limited to, dose reduction techniques, automatedexposure controlled techniques, use of iterative reconstructiontechniques, and ALARA or ALARA gently techniques. FINDINGS: LUNG BASES: Bibasilar atelectasis is present with small bilateraleffusions HEPATOBILIARY: Liver is homogeneous in attenuation. No discrete hepaticlesions are seen. The pancreas is intact without pancreatic mass orperipancreatic inflammation. The gallbladder and extrahepatic biliarytree are intact. :The adrenal glands are normal size and morphology. The left kidney isatretic or hyperplastic. An indeterminate renal masses seen arising fromthe assess atretic left kidney measuring 10 mm in size. Bilateralintrarenal calculi are seen. An indeterminate lesion is seen of the lowerpole the right kidney is well. These are not seen well enough on previousultrasound to confirm a cystic or solid nature. Ingram catheter is presentin a collapsed bladder. Urothelial thickening is seen of the right renalcollecting system. GI: Ileus is present. No obstruction or free air is seen. No free fluidis identified. The appendix is within normal limits. The stomach isdistended. LYMPHATICS: The spleen is within normal limits. No adenopathy is seen. VASCULAR: Severe peripheral vascular atherosclerotic calcific plaquing ispresent without aneurysm MUSCULOSKELETAL: L1 compression fracture is demonstrated the acuity ofwhich is uncertain IMPRESSION 1. Atretic or hypoplastic left kidney. 2. Urothelial thickening on the right suggesting inflammation orinfection. 3. Bilateral indeterminate renal masses. 4. Bilateral intrarenal calculi. 5. L1 compression fracture of uncertain acuity. 6. Bibasilar atelectasis with small bilateral effusions. Electronically signed by: Nick Gaytan MD Date of Signature: 12/17/2019 14:51:13 Alex Sarmiento MD IMG CT ORDERABLES Final Resul t * (ABNORMAL) Lactic Acid (Lactate) Serum - every 4 hours x 24 hours (12/17/2019 10:02 AM CDT) Only the most recent of6 resultswithin the time period is included. Pathologist [facility] LACTIC ACID 2.4(H) 0.5 - 2.2 mmol/L 12/17/2019 10:40 AM CDT [facility] Blood Venipuncture / Unknown 12/17/2019 10:02 AM CDT 12/17/2019 10:06 AM CDT Lissette Saul MD CHEMISTRY ORDERABLES F inal Result Performing Organization Address City/[facility]/[place] [address] * Culture, Urine (12/16/2019 8:59 PM CDT) [facility] CULTURE RESULTS NO GROWTH WITHIN 2 DAYS 12/19/2019 9:58 AM CDT [facility] Urine URINE SPECIMEN / Unknown Non-Phlebotomy Collection / Unknown 12/16/2019 8:59 PM CDT 12/16/2019 9:02 PM CDT Alex Sarmiento MD MICROBIOLOGY - GENERAL ORDERA BLES Final Result Performing Organization Address [facility]/ZIP Co de Phone Number [address] [address] * (ABNORMAL) Urinalysis Microscopic If Indicated (12/16/2019 8:59 PM CDT) SPECIFIC GRAVITY 1.012 1.003 - 1.035 12/16/2019 9:12 PM CDT [facility] URINE PH 6.0 5.0 - 8.0 12/16/2019 9:12 PM [facility] WBC ESTERASE 3+(A) Negative 12/16/2019 9:12 PM T [facility] NITRITE Negative Negative 12/16/2019 9:12 PM [facility] PROTEIN, RANDOM URINE 1+(A) Negative 12/16/2019 9:12 PM [facility] URINE GLUCOSE, QUAL Negative Negative 12/16/2019 9:12 PM T [facility] URINE KETONES Negative Negative 12/16/2019 9:12 PM T [facility] UROBILINOGEN <2.0 <2.0 mg/dL 12/16/2019 9:12 PM T [facility] URINE BILIRUBIN Negative Negative 0 9:12 PM [facility] URINE BLOOD 2+(A) Negative maribell/ul 12/16/2019 9:12 PM [facility] URINALYSIS COLOR Yellow Yellow 12/16/19 20 9:12 PM [facility] URINALYSIS CLARITY Clear Clear 12/16/2019 9:12 PM [facility] WBC (Urine) 21-50(A) 0-5, Negative /hpf 12/16/2019 9:12 PM [facility] URINE RBC'S 0-5 0-5, Negative, None /hpf 12/16/2019 9:12 PM [facility] BACTERIA, URINE Rare(A) None, Absent /hpf 12/16/2019 9:12 PM [facility] URINE MUCOUS Rare None, Rare, Few 12/16/2019 9:12 PM [facility] DMH RENAL EPI CELLS 12/16/2019 9:12 PM [facility] URINE SPERM 12/16/2019 9:12 PM [facility] URINE TRICHOMONAS 12/16/2019 9:12 PM [facility] URINE YEAST 12/16/2019 9:12 PM [facility] Urine URINE SPECIMEN / Unknown Non-Phlebotomy Collection / Unknown 12/16/2019 8:59 PM CDT 12/16/2019 9:02 PM CDT [facility] - 12/16/2019 9:12 PM CDT Urine culture has been ordered. us Alex Sarmiento MD URINE ORDERABLES Final Result [facility] [address], [place] [id number] * US RENAL COMPLETE (12/16/2019 8:10 PM CDT) Anatomical Region Laterality Modality , Abdomen N/A Ultrasound Narrative 12/16/2019 8:38 PM CDT EXAMINATION: US RENAL COMPLETE HPI: 61-year-old female with acute renal failure. COMPARISON: None available. TECHNIQUE: Complete renal ultrasound performed evaluation of the bladder obtained. FINDINGS: RIGHT KIDNEY:Right kidney is normal in size measuring 11.7 x 5.7 x 6.6 cm. ??There are intrarenal calculi present. ??Mild hydronephrosis is demonstrated. LEFT KIDNEY:Not visualized. BLADDER: Decompressed by a Ingram catheter. IMPRESSION Limited study demonstrating mild right hydronephrosis and multiple intrarenal calculi. Electronically signed by: Krystle Keller MD Date of Signature: ??12/16/2019 20:38:58 Procedure Note Krystle Keller MD - 12/16/2019 EXAMINATION: US RENAL COMPLETE HPI: 61-year-old female with acute renal failure. COMPARISON: None available. TECHNIQUE: Complete renal ultrasound performed evaluation of the bladder obtained. FINDINGS: RIGHT KIDNEY:Right kidney is normal in size measuring 11.7 x 5.7 x 6.6 cm.There are intrarenal calculi present. Mild hydronephrosis isdemonstrated. LEFT KIDNEY:Not visualized. BLADDER: Decompressed by a Ingram catheter. IMPRESSION Limited study demonstrating mild right hydronephrosis and multipleintrarenal calculi. Electronically signed by: Krystle Keller MD Date of Signature: 12/16/2019 20:38:58 us Alex Sarmiento MD IMG US ORDERABLES Final Resul t * (ABNORMAL) CMP (Comprehensive Metabolic Panel) (12/16/2019 7:22 PM CDT) Only the most recent of2 resultswithin the time period is included. SODIUM 154(H) 133 - 145 mmol/L 12/16/2019 8:22 PM [facility] POTASSIUM 3.9 3.5 - 5.1 mmol/L 12/16/2019 8:22 PM [facility] CHLORIDE 126(H) 96 - 108 mmol/L 12/16/2019 8:22 PM [facility] CO2, VENOUS 15(L) 21 - 32 mmol/L 12/16/2019 8:22 PM [facility] ANION GAP 16.9 10.0 - 20.0 mmol/L 12/16/2019 8:22 PM [facility] GLUCOSE 224(H) 80 - 115 mg/dL 12/16/2019 8:22 PM [facility] BUN 129(H) 6 - 19 mg/dL 12/16/2019 8:22 PM [facility] CREATININE, BLOOD 5.30(H) 0.40 - 1.10 mg/dL 12/16/2019 8:22 PM [facility] BUN/CREATININE RATIO 24(H) 12 - 20 ratio 12/16/2019 8:22 PM [facility] TOTAL PROTEIN 5.7(L) 6.0 - 8.2 g/dL 12/16/2019 8:22 PM [facility] ALBUMIN 2.9(L) 3.4 - 4.8 g/dL 12/16/2019 8:22 PM [facility] CALCIUM 7.9(L) 8.8 - 10.0 mg/dL 12/16/2019 8:22 PM [facility] Comment:Calcium low. Correct ed calcium to follow. T BILI 0.4 0.0 - 1.0 mg/dL 12/16/2019 8:22 PM [facility] SGOT (AST) 21 0 - 37 U/L 12/16/2019 8:22 PM [facility] SGPT (ALT) 25 12 - 45 U/L 12/16/2019 8:22 PM [facility] ALKALINE PHOSPHATASE 82 39 - 117 U/L 12/16/2019 8:22 PM [facility] GFR, EST. NONAFRICAN 7 12/16/2019 8:22 PM CDT [facility] Comment: Reference interval for MDRD GFR: GFR >=60: Satisfactory kidney function GFR <60: Chronic kidney disease GFR <15: Kidney failure Estimated GFR may be less reliable in patients >70yr, women, patients with serious comorbid conditions, or patients with extremes of body size, muscle mass, or nutritional status. Revised 06/12/07 (National Kidney Disease Education Program) GFR, EST. 8(L) >=60 020 8:22 PM CDT [facility] Comment: Reference interval for MDRD GFR: GFR >=60: Satisfactory kidney function GFR <60: Chronic kidney disease GFR <15: Kidney failure Estimated GFR may be less reliable in patients >70yr, women, patients with serious comorbid conditions, or patients with extremes of body size, muscle mass, or nutritional status. Revised 06/12/07 (National Kidney Disease Education Program) Blood Venipuncture / Unknown 12/16/2019 7:22 PM CDT 12/16/2019 8:06 PM CDT [facility] - 12/16/2019 8:22 PM CDT Venipuncture should occur prior to sulfasalazine and/or sulfapyridine administration due to the potential for falsely depressed results for ALT and AST. ??Glucose can be falsely depressed after administration of sulfasalazine, and falsely elevated with administration of sulfapyridine. us Alex Sarmiento MD CHEMISTRY ORDERABLES Final Re sult [facility] [address] [place] [address] * (ABNORMAL) Blood Gases, Arterial STAT (12/16/2019 3:50 PM CDT) O2 STATUS 21% 12/16/2019 3:51 PM CDT [facility] PH ARTERIAL 7.34(L) 7.35 - 7.45 12/16/2019 3:51 PM CDT [facility] PC02 (ARTERIAL) 30(L) 32 - 45 mmHg 12/16/2019 3:51 PM CDT [facility] PO2 (ARTERIAL) 64(L) 83 - 108 mmHg 12/16/2019 3:51 PM [facility] O2 SAT ART, MEASURED 92(L) 95 - 98 % 11/18 3:51 PM [facility] Comment:Quantity not suffici ent for a measured O2 saturation. BASE ARTERIAL -8.6(L) -2.0 - 3.0 mmol/L 12/16/2019 3:51 PM T [facility] BICARBONATE 15.6(L) 18.0 - 23.0 mmol/L 12/16/2019 3:51 PM [facility] TOTAL HEMOGLOBIN 15.3(H) 11.0 - 15.0 gm/dL 12/16/2019 3:51 PM [facility] O2 CONTENT 19.7 15.0 - 23.0 12/16/2019 3:51 PM [facility] O2 SAT, CALCULATED 92.8(L) 95.0 - 98.0 % 12/16/2019 3:51 PM [facility] CARBOXYHEMOGLOBIN 1.1 0.5 - 1.5 % 12/16/2019 3:51 PM [facility] METHEMOGLOBIN 0.3(L) 0.5 - 1.5 % 12/16/2019 3:51 PM [facility] ART Blood Gas Arterial Punctur e / Unknown 12/16/2019 3:50 PM CDT 12/16/2019 3:50 PM CDT Narrative [facility] - 12/16/2019 3:51 PM CDT Hemoglobin measurement by co-oximetry may not be as reliable as standard determinations. If clinically indicated, recheck hemoglobin by usual method. us Lissette Saul MD CHEMISTRY ORDERABLES F inal Result [facility] [address] [place] [address] * (ABNORMAL) PHOSPHORUS (PO4) (12/16/2019 1:58 PM CDT) PHOSPHORUS 4.8(H) 2.6 - 4.5 mg/dL 12/16/2019 3:27 PM CDT [facility] Blood Venipuncture / Unknown 12/16/2019 1:58 PM CDT 12/16/2019 2:50 PM CDT Lissette Saul MD CHEMISTRY ORDERABLES F inal Result [facility] [address] [place] [address] documented in this encounter Visit Diagnoses Diagnosis UTI (urinary tract infection) Urinary tract infection, site not specified MOIRA (acute kidney injury) (HCC) Acute kidney failure, unspecified documented in this encounter Administered Medications Inactive Administered Medications - up to 3 most recent administrations Medication Order MAR Action Action Date Dose Rate Site amLODIPine (NORVASC) tablet 2.5 mg 2.5 mg, Oral, DAILY, First dose on Sun12/19/19 at 1000, Until Discontinued Given 12/21/2019 9:02 AM CDT 2.5 mg Given 12/20/2019 8:37 AM CDT 2.5 mg Given 12/19/2019 10:00 AM CDT 2.5 mg aspirin chewable tablet 81 mg 81 mg, Oral, DAILY, First dose on Sun12/17/19 at 0900, Until Discontinued Given 12/21/2019 9:02 AM CDT 81 mg Given 12/20/2019 8:37 AM CDT 81 mg Given 12/19/2019 8:50 AM CDT 81 mg dextrose 5 % 1,000 mL with sodium bicarbonate 100 mEq infusion at 100 mL/hr, Intravenous, CONTINUOUS, Starting on Sun12/16/19 at 2030, Until Sun12/17/19 at 1123 New Bag 12/17/2019 10:23 AM CDT 100 mL/hr New Bag 12/16/2019 8:30 PM CDT 100 mL/hr dextrose 5 % solution at 100 mL/hr, Intravenous, CONTINUOUS, Starting on Sun12/16/19 at 1500, Until Sun12/16/19 at 1943 New Bag 12/16/2019 3:32 PM CDT 100 mL/hr dextrose 5 % solution at 50 mL/hr, Intravenous, CONTINUOUS, Starting on Sun12/17/19 at 1200, Until Sun12/21/19 at 2028 New Bag 12/21/2019 9:04 AM CDT 50 mL/hr New Bag 12/20/2019 4:43 AM CDT 50 mL/hr Rate Change 12/19/2019 10:01 AM CDT 50 mL/hr HEParin (porcine) injection 5,000 Units 5,000 Units, Subcutaneous, EVERY 8 HOURS SCHEDULED, First dose on Sun12/16/19 at 1730, Until Discontinued Given 12/19/2019 8:50 AM CDT 5,000 Units Right Abdomen Given 12/19/2019 12:34 AM CDT 5,000 Units Left Abdomen Given 12/18/2019 4:00 PM CDT 5,000 Units L eft Abdomen HEParin (porcine) injection 5,000 Units 5,000 Units, Subcutaneous, EVERY 12 HOURS SCHEDULED, First dose (after last modification) on Sun12/19/19 at 2100, Until Discontinued Given 12/21/2019 9:02 AM CDT 5,000 Units Left Abdomen Given 12/20/2019 8:35 PM CDT 5,000 Units L eft Abdomen Given 12/20/2019 8:37 AM CDT 5,000 Units L eft Abdomen ondansetron (ZOFRAN) injection 4 mg 4 mg, Intravenous, EVERY 12 HOURS PRN, Starting on Sun12/16/19 at 1659, Until Joan 12/18/19 at 1655, Nausea - 1st line, 1. First Line Antiemetic. 2. Use Injection only if patient unable to tolerate oral medications. Given 12/18/2019 10:45 AM CDT 4 mg ondansetron (ZOFRAN) injection 4 mg 4 mg, Intravenous, EVERY 4 HOURS PRN, Starting on Sun12/18/19 at 1654, Until Sun12/21/19 at 2027, Nausea - 1st line Given 12/19/2019 10:51 AM CDT 4 mg Given 12/18/2019 5:13 PM CDT 4 mg piperacillin-tazobactam (ZOSYN) IVPB 3.375 g 3.375 g, Intravenous, EVERY 8 HOURS, 21 doses, First dose on Sun12/16/19 at 1600, Last dose on Sun12/23/19 at 0800, Administer over 4 Hours, Initial dose followed by (Piperacillin 4-5 gm), Indications: Systemic Bacterial Infection, at 12.5 mL/hrIndications:Systemic Bacterial Infection New Bag 12/17/2019 8:16 AM CDT 3.375 g 12.5 mL/hr New Bag 12/16/2019 11:00 PM CDT 3.375 g 12.5 mL/hr New Bag 12/16/2019 5:05 PM CDT 3.375 g 12.5 mL/hr piperacillin-tazobactam (ZOSYN) IVPB 3.375 g 3.375 g, Intravenous, EVERY 12 HOURS, First dose on Sun12/17/19 at 2000, Until Discontinued, Administer over 4 Hours, Renally adjusted for cr. Cl 10.1, Indications: Systemic Bacterial Infection, at 12.5 mL/hrIndications:Systemic Bacterial Infection New 12/19/2019 8:17 PM CDT 3.375 g 12.5 mL/hr New 12/19/2019 8:55 AM CDT 3.375 g 12.5 mL/hr 12/18/2019 9:49 PM CDT 3.375 g 12.5 mL/hr piperacillin-tazobactam (ZOSYN) IVPB 3.375 g 3.375 g, Intravenous, EVERY 8 HOURS, First dose (after last reorder) on 12/20/19 at 0800, Until Discontinued, Administer over 4 Hours, Renally adjusted for cr.cl 21, Indications: Systemic Bacterial Infection, at 12.5 mL/hrIndications:Systemic Bacterial Infection New 12/21/2019 8:02 AM CDT 3.375 g 12.5 mL/hr New 12/20/2019 11:51 PM CDT 3.375 g 12.5 mL/hr 12/20/2019 4:04 PM CDT 3.375 g 12.5 mL/hr potassium chloride SA (KLORCON M) tablet 40 mEq 40 mEq, Oral, ONCE, 1 dose, On Joan 12/18/19 at 1900 Given 12/18/2019 9:49 PM CDT 40 mEq vancomycin (VANCOCIN) 1,000 mg in sodium chloride 0.9 % 250 mL IVPB 1,000 mg, Intravenous, ONCE, 1 dose, On Sun12/21/19 at 0000, Administer over 120 Minutes, Indications: Systemic Bacterial Infection, at 125 mL/hrIndications:Systemic Bacterial Infection New 12/20/2019 11:56 PM CDT 1,000 mg 125 mL/hr vancomycin (VANCOCIN) 1,250 mg in sodium chloride 0.9 % 250 mL IVPB 1,250 mg, Intravenous, ONCE, 1 dose, On Sun12/16/19 at 1730, Administer over 120 Minutes, Indications: Systemic Bacterial Infection, at 125 mL/hrIndications:Systemic Bacterial Infection New Bag 12/16/2019 5:05 PM CDT 1,250 mg 125 mL/hr vancomycin (VANCOCIN) 750 mg in sodium chloride 0.9 % 250 mL IVPB 750 mg, Intravenous, ONCE, 1 dose, On Sun12/17/19 at 1900, Administer over 120 Minutes, Indications: Systemic Bacterial Infection, at 125 mL/hrIndications:Systemic Bacterial Infection New Bag 12/17/2019 8:00 PM CDT 750 mg 125 mL/hr vancomycin (VANCOCIN) 750 mg in sodium chloride 0.9 % 250 mL IVPB 750 mg, Intravenous, ONCE, 1 dose, On Sun12/18/19 at 2030, Administer over 120 Minutes, Indications: Systemic Bacterial Infection, at 125 mL/hrIndications:Systemic Bacterial Infection [facility] 12/18/2019 9:57 PM CDT 750 mg 125 mL/hr documented in this encounter Active and Recently Administered Medications Times are shown in CDT. Scheduled Medication Order 12/19/2019 12/20/2019 12/21/2019 amLODIPine (NORVASC) tablet 2.5 mg 2.5 mg, Oral, DAILY, First dose on Sun12/19/19 at 1000, Until Discontinued 1000 (Given - Provider: Maite Serna) 0837 (Given - Provider: Casandra Flynn RN) 0902 (Given - Provider: Kelli Magana RN) aspirin chewable tablet 81 mg 81 mg, Oral, DAILY, First dose on Sun12/17/19 at 0900, Until Discontinued 0850 (Given - Provider: Quintin Vizcarra RN) 0837 (Given - Provider: Casandra Flynn RN) 0902 (Given - Provider: Kelli Magana RN) HEParin (porcine) injection 5,000 Units (CANCELED) 5,000 Units, Subcutaneous, EVERY 8 HOURS SCHEDULED, First dose on Sun12/16/19 at 1730, Until Discontinued 0034 (Given - Provider: Edgar Sandhu RN)0850 (Given - Provider: Quintin Vizcarra RN) HEParin (porcine) injection 5,000 Units 5,000 Units, Subcutaneous, EVERY 12 HOURS SCHEDULED, First dose (after last modification) on Sun12/19/19 at 2100, Until Discontinued 2016 (Given - Provider: Edgar Sandhu RN) 0837 (Given - Provider: Casandra Flynn RN)2035 (Given - Provider: Masha Das RN) 0902 (Given - Provider: Kelli Magana RN) piperacillin-tazobactam (ZOSYN) IVPB 3.375 g (CANCELED) 3.375 g, Intravenous, EVERY 12 HOURS, First dose on Sun12/17/19 at 2000, Until Discontinued, Administer over 4 Hours, Renally adjusted for cr. Cl 10.1, Indications: Systemic Bacterial Infection, at 12.5 mL/hr 0149 (Stopped - Provider: Edgar Sandhu RN)0855 (New Bag - Provider: Quintin Vizcarra RN)1255 (Stopped - Provider: Quintin Vizcarra RN)2016 (New Bag - Provider: Edgar Sandhu RN) 0017 (Stopped - Provider: Edgar Sandhu RN) piperacillin-tazobactam (ZOSYN) IVPB 3.375 g 3.375 g, Intravenous, EVERY 8 HOURS, First dose (after last reorder) on Sun12/20/19 at 0800, Until Discontinued, Administer over 4 Hours, Renally adjusted for cr.cl 21, Indications: Systemic Bacterial Infection, at 12.5 mL/hr 0834 (New Bag - Provider: Casandra Flynn RN)1234 (Stopped - Provider: Kelli Magana RN)1604 (New Bag - Provider: Casandra Flynn RN)2004 (Stopped - Provider: Masha Das, DANIAL)2351 (New Bag - Provider: Masha Das RN) 0351 (Stopped - Provider: Masha Das, DANIAL)0802 (New Bag - Provider: Kelli Magana, DANIAL)1202 (Stopped - Provider: Kelli Magana RN)1700 (Not Given - Provider: Elise Torres - Reason: Other - see comment) vancomycin (VANCOCIN) 1,000 mg in sodium chloride 0.9 % 250 mL IVPB (COMPLETED) 1,000 mg, Intravenous, ONCE, 1 dose, On 12/21/19 at 0000, Administer over 120 Minutes, Indications: Systemic Bacterial Infection, at 125 mL/hr 2356 (New Bag - Provider: Masha Das, RN) 0156 (Stopped - Provider: Masha Das, RN) Continuous Medication Order 12/19/2019 12/20/2019 12/21/2019 dextrose 5 % solution at 50 mL/hr, Intravenous, CONTINUOUS, Starting on Sun12/17/19 at 1200, Until 12/21/19 at 2027 0529 (New Bag - Provider: Edgar Sandhu, DANIAL)1001 (Rate Change - Provider: Maite Serna) 0443 (New Bag - Provider: Edgar Sandhu, DANIAL) 0904 (New Bag - Provider: Kelli Magana, RN) PRN Medication Order 12/19/2019 12/20/2019 12/21/2019 ondansetron (ZOFRAN) injection 4 mg 4 mg, Intravenous, EVERY 4 HOURS PRN, Starting on Joan 12/18/19 at 1654, Until 12/21/19 at 2027, Nausea - 1st line 1051 (Given - Provider: Quintin Vizcarra, RN) ondansetron (ZOFRAN-ODT) disintegrating tablet 4 mg(Linked Group 1) 4 mg, Oral, EVERY 12 HOURS PRN, Starting on Sun12/16/19 at 1659, Until 12/21/19 at 2027, Nausea - 1st line, 1. First Line Antiemetic. 2. Use PO form unless unable to tolerate PO medications, then use Injection 1816 (Incomplete - Provider: Kelli Magana, RN) VANCOMYCIN INTERMITTENT THERAPY Miscellaneous, PRN, Starting on Sun12/16/19 at 1439, Until 12/21/19 at 2027, Other, This order is a communication order only. The patient is receiving Vancomycin therapy and having levels monitored on a routine basis. Please use Acknowledge' MAR action when documenting on the MAR. Linked Groups Order Group 1: ondansetron (ZOFRAN-ODT) disintegrating tablet 4 mgJump to med 4 mg, Oral, EVERY 12 HOURS PRN, Starting on 12/16/19 at 1659, Until 12/21/19 at 2028, Nausea - 1st line, 1. First Line Antiemetic. 2. Use PO form unless unable to tolerate PO medications, then use Injection Or ondansetron (ZOFRAN) injection 4 mg (CANCELED) 4 mg, Intravenous, EVERY 12 HOURS PRN, Starting on Sun12/16/19 at 1659, Until Joan 12/18/19 at 1655, Nausea - 1st line, 1. First Line Antiemetic. 2. Use Injection only if patient unable to tolerate oral medications. documented in this encounter Additional Health Concerns Assessment Noted Time PHQ-9 Depression Total Score: 0 12/16/19 20 1:27 PM CDT documented as of this encounter Care Teams National Sales Director Relationship Specialty Start Date End Date Jasson Valdivia MD [address] [place] [id number] PCP - General Family Medicine 12/16/19 documented as of this encounter
--- OUTSIDE RECORDS SUMMARY | 2024-03-19 19:03 | XMS_ITS | Clinical Summary ---
Author Organization [facility] Address [address] [place] [address] Care Team Providers Care Fresco Artist Name Role Phone Jasson Cueva MD Primary Care Provider [phone] Allergies No known active allergies Medications aspirin 81 mg enteric coated tablet Take 1 tablet (81 mg total) by mouth daily Active gabapentin (NEURONTIN) 100 mg capsule Take 1 capsule (100 mg total) by mouth 3 (three) times a day Active HYDROcodone-mena taminophen (NORCO) 5-325 mg per tablet Take 1 tablet by mouth every 6 (six) hours as needed for pain Active omeprazole 20 mg tablet,delayed release (DR/EC) Take 1 tablet (20 mg total) by mouth daily Active cholecalciferol (VITAMIN D-3) 5,000 unit tablet Take 1 tablet (5,000 Units total) by mouth daily Active sevelamer (RENAGEL) 800 mg tablet Take 1 tablet (800 mg total) by mouth 3 (three) times a day with meals Active amLODIPine (NORVASC) 5 mg tablet Take 1 tablet (5 mg total) by mouth daily 02/29/20 24 Discontinu ed(Stop Taking at Discharge) furosemide (LASIX) 20 mg tabletIndicatio ns:Edema Take 1 tablet (20 mg total) by mouth every other day 02/29/20 24 Discontinu ed(Stop Taking at Discharge) metoprolol XL (TOPROL-XL) 25 mg extended release tablet Take 1 tablet (25 mg total) by mouth daily 02/29/20 24 Discontinu ed(Stop Taking at Discharge) lidocaine (LIDODERM) 5 % Place 1 patch on the skin daily Remove & discard patch within 12 hours or as directed by . 7 patch 3 02/29/20 24 Discontinu ed(Stop Taking at Discharge) Active Problems Problem Noted Date Diagnosed Date Hemodialysis-associated hypotension 02/28/2024 Aspiration into airway 02/28/2024 Neuropathic pain 02/28/2024 Stroke-like symptoms 02/23/2024 COPD with acute exacerbation 02/28/2023 Closed fracture of one rib of right side 023 Musculoskeletal chest pain 02/28/2023 Acute respiratory failure with hypoxia ([facility]) 02/28/2023 Mild bibasilar atelectasis 02/28/2023 Acute bronchitis 02/28/2023 Dependent on hemodialysis ([facility]) 02/28/2023 Primary hypertension 02/28/2023 ESRD (end stage renal disease) on dialysis 02/28 Encounters Date Type Department Care Team Description 03/05/2024 12:23 PM TOP STOP ATTACHER - 03/05/2024 11:59 PM TOP STOP ATTACHER Hospital Encounter [facility]BULANCE BILLING [address] [place] [address] Discharge Disposition: Discharge to home or self care 03/05/2024 4:56 AM TOP STOP ATTACHER - 03/05/2024 12:22 PM TOP STOP ATTACHER Emergency [facility] Emergency Department [address] [place] [address] Layton Sheridan MD Fox, Mauricio Alejo MD Complication associated with dialysis catheter (Primary Dx); ESRD (end stage renal disease) on dialysis ([facility]) Discharge Disposition: Discharge to home or self care 03/04/2024 9:40 AM TOP STOP ATTACHER - 03/04/2024 11:59 PM TOP STOP ATTACHER Hospital Encounter [facility] [address] [place] [address] Discharge Disposition: Discharge to home or self care 03/04/2024 9:38 AM TOP STOP ATTACHER - 03/04/2024 11:59 PM TOP STOP ATTACHER Hospital Encounter [facility] [address] [place] [address] Discharge Disposition: Discharge to home or self care 03/04/2024 9:22 AM TOP STOP ATTACHER - 03/04/2024 11:59 PM TOP STOP ATTACHER Hospital Encounter [facility]) [address] [place] [address] Discharge Disposition: Discharge to home or self care 03/04/2024 9:08 AM TOP STOP ATTACHER - 03/04/2024 11:59 PM TOP STOP ATTACHER Hospital Encounter [facility] [address] [place] [address] Discharge Disposition: Discharge to home or self care 03/04/2024 9:05 AM TOP STOP ATTACHER - 03/04/2024 11:59 PM TOP STOP ATTACHER Hospital Encounter [facility] [address] [place] [address] Discharge Disposition: Discharge to home or self care 03/04/2024 8:23 AM TOP STOP ATTACHER - 03/04/2024 11:59 PM TOP STOP ATTACHER Hospital Encounter [facility] [address] [place] [address] Discharge Disposition: Discharge to home or self care 03/04/2024 8:21 AM TOP STOP ATTACHER - 03/04/2024 11:59 PM TOP STOP ATTACHER Hospital Encounter [facility] [address] [place] [address] Discharge Disposition: Discharge to home or self care 03/04/2024 8:07 AM TOP STOP ATTACHER - 03/04/2024 11:59 PM TOP STOP ATTACHER Hospital Encounter [facility] [address] [place] [address] Discharge Disposition: Discharge to home or self care 03/04/2024 7:57 AM TOP STOP ATTACHER - 03/04/2024 11:59 PM TOP STOP ATTACHER Hospital Encounter [facility] [address] [place] [address] Discharge Disposition: Discharge to home or self care 03/04/2024 7:54 AM TOP STOP ATTACHER - 03/04/2024 11:59 PM TOP STOP ATTACHER Hospital Encounter [facility] [address] [place] [address] Discharge Disposition: Discharge to home or self care 02/29/2024 Telephone [facility] Scheduling [address] [place] [address] Princess Payne 02/26/2024 Telephone [facility] General Neurology [address] [facility] 6th [place] [address] [place] [id number] Deidra Monique RN 02/23/2024 6:15 PM TOP STOP ATTACHER - 02/29/2024 4:37 PM TOP STOP ATTACHER Hospital Encounter [facility] [address] [facility] [place] [address] Fabiana Wilson MD Bucelli, Robert Charles, MD PhD Stroke-like symptoms (Primary Dx); Intracranial hemorrhage (HCC); Hypotension, unspecified hypotension type; Cerebral cavernoma; Developmental venous anomaly Discharge Disposition: Discharge to an IP Rehab facility from Last 3 Months Immunizations Name Administration Dates Next Due COVID-19 mRNA (PFIZER) 0.3 m L (30 mcg) vaccine (12 years and up) 12/27/2023 Surgical History Surgery Date Site/Laterality Comments JOINT REPLACEMENT TOTAL HIP ARTHROPLASTY Bilateral SHOULDER SURGERY Right EXCHANGE TUNNELED LINE 03/05/2024 Left Medical History Medical History Date Comments COPD (chronic obstructive pulmonary disease) (HC C) Stroke (HCC) Hypertension CHF (congestive heart failure) (CMS/HCC) (HCC) CKD (chronic kidney disease), stage IV (CMS/HCC) (HCC) HLD (hyperlipidemia) Polyneuropathy Metabolic encephalopathy Hemiplegia and hemiparesis f ollowing cerebral infarction affecting right dominant side (HCC) 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 No 02/28/2023 Social Connection and Isolat ion Panel [NHANES] Answer Date Recorded In a typical week, how many times do you talk on the phone with family, friends, or neighbors? More than three times a week 02/28/2023 How often do you get togethe r with friends or relatives? Twice a week 02/28/2023 How often do you attend chur ch or jain services? Never 02/28/2023 Do you belong to any clubs o r organizations such as jain groups, unions, fraternal or athletic groups, or school groups? No 02/28/2023 How often do you attend meet ings of the clubs or organizations you belong to? Never 02/28/2023 Are you , , di vorced, , never , or living with a partner? 02/28/2023 Overall Financial Resource Strain (CARDIA) Answe r Date Recorded How hard is it for you to pa y for the very basics like food, housing, medical care, and heating? Not very hard 02/28/2023 Hunger Vital Sign Answer Date Recorded Within the past 12 months, y ou worried that your food would run out before you got the money to buy more. Never true 02/29/20 23 Within the past 12 months, t he food you bought just didn't last and you didn't have money to get more. Never true 02/28/2023 PRAPARE - Transportation Answer Date Re corded In the past 12 months, has l ack of transportation kept you from medical appointments or from getting medications? No 02/16 In the past 12 months, has l ack of transportation kept you from meetings, work, or from getting things needed for daily living? No 02/28/2023 Housing Stability Vital Sign Answer Karri e Recorded In the last 12 months, was t here a time when you were not able to pay the mortgage or rent on time? No 02/28/2023 In the last 12 months, how many places have you lived? 2 02/28/2023 In the last 12 months, was t here a time when you did not have a steady place to sleep or slept in a fdc (including now)? No 02/28/2023 Personal Safety Answer Date Recorded Have you ever been in or are you currently in a harmful physical or emotional relationship or is someone making you feel afraid or unsafe? Denies 03/05/2024 Comments Unknown Sex and Gender Information Value Date Recorded Sex Assigned at Not on file Legal Sex Female 7:00 PM TOP STOP ATTACHER Gender Identity Not on file Sexual Orientation Not on file Obstetrics History Last Filed Vital Signs Vital Sign Reading Time Taken Comments Blood Pressure 142/77 03/05/2024 12:00 PM TOP STOP ATTACHER Pulse 71 03/05/2024 12:00 PM TOP STOP ATTACHER Temperature 36.2 ??C (97.1 ??F) 03/05/2024 1:36 AM CS T Respiratory Rate 16 03/05/2024 9:05 AM TOP STOP ATTACHER Oxygen Saturation 92% 03/05/2024 12: 00 PM TOP STOP ATTACHER Inhaled Oxygen Concentration - - Weight 74.7 kg (164 lb 10.9 oz) 03/04/2024 6:46 PM TOP STOP ATTACHER Height 170.2 cm (5' 7 ) 03/04/2024 6:46 PM TOP STOP ATTACHER Body Mass Index 25.79 03/04/2024 6:46 PM TOP STOP ATTACHER Plan of Treatment Health Maintenance Due Date Last Done Comments Colon Cancer Screening-Colonoscopy 1950 Depression Screening 1950 Hepatitis C Screening 1950 Osteoporosis Screening-Bone Density Scan 1950 Pneumococcal vaccine 65+ (1 of 2 - PCV) 08/23/1957 Hepatitis B Screening 08/23/1969 Zoster Vaccine (1 of 2) 08/23/2001 Well Visit 65+ 08/23/2016 Breast Cancer Screening-Mammogram 10/03/2023 10/02/2022, 10/02/2022, 03/06/2022, Additional history exists Influenza Vaccine (#1) 2023 12/17/2021, 2021 DTaP/Tdap/Td Vaccine (2 - Td or Tdap) 06/21/2024 06/21/2014 Fall Risk Assessment 03/05/2025 03/05/2024 Covid-19 Vaccine Completed 12/27/2023, 04/2020, 05/21/2020 Medical Devices Implanted Type Area Clinical Massage Therapist Device Identifier Shelf Expiration Date Model / Serial / Lot [employer] Kit Cath Adult 32cm 15.5fr Durathane Duraflow Embosafe Basic [id number] - [id number] Implanted:Qty: 1 on 03/05/2024 by Latrell Renee MD PhD at [facility] Left: Chest Wall [employer] 11/16/2025 [id number] / / [id number] Procedures Procedure Name Priority Date/Time Associated Diagnosis Comments EXCHANGE TUNNELED LINE ED 03/05/2024 10:02 AM TOP STOP ATTACHER EGFR STAT 03/05/2024 7:37 AM TOP STOP ATTACHER DIFFERENTIAL AUTO STAT 03/05/2024 7:3 7 AM TOP STOP ATTACHER COMPREHENSIVE METABOLIC PANEL STAT 03/05/2024 7:37 AM TOP STOP ATTACHER CBC WITH AUTO DIFFERENTIAL STAT 03/05/2024 7:37 AM TOP STOP ATTACHER ECG 12-LEAD Routine 03/04/2024 10:54 PM TOP STOP ATTACHER NEURO MR OUTSIDE REFERENCE Routine 03/04/2024 9:40 AM TOP STOP ATTACHER US TRANSFER OF OUTSIDE FILMS Routine 03/04/2024 9:38 AM TOP STOP ATTACHER NEURO CT OUTSIDE REFERENCE Routine 03/04/2024 9:22 AM TOP STOP ATTACHER NEURO MR OUTSIDE REFERENCE Routine 03/04/2024 9:08 AM TOP STOP ATTACHER NEURO CT OUTSIDE REFERENCE Routine 03/04/2024 9:05 AM TOP STOP ATTACHER NEURO CT OUTSIDE REFERENCE Routine 03/04/2024 8:23 AM TOP STOP ATTACHER NEURO MR OUTSIDE REFERENCE Routine 03/04/2024 8:21 AM TOP STOP ATTACHER NEURO CT OUTSIDE REFERENCE Routine 03/04/2024 8:07 AM TOP STOP ATTACHER NEURO CT OUTSIDE REFERENCE Routine 03/04/2024 7:57 AM TOP STOP ATTACHER NEURO CT OUTSIDE REFERENCE Routine 03/04/2024 7:54 AM TOP STOP ATTACHER EGFR Routine 02/28/2024 8:13 PM TOP STOP ATTACHER BASIC METABOLIC PANEL Routine 02/28/2024 8:13 PM TOP STOP ATTACHER CBC WITHOUT DIFFERENTIAL Routine 02/28/2024 8:13 PM TOP STOP ATTACHER HEMODIALYSIS Routine 02/28/2024 1:58 PM TOP STOP ATTACHER EGFR Routine 02/27/2024 6:38 PM TOP STOP ATTACHER BASIC METABOLIC PANEL Routine 02/27/2024 6:38 PM TOP STOP ATTACHER CBC WITHOUT DIFFERENTIAL Routine 02/27/2024 6:38 PM TOP STOP ATTACHER EGFR Routine 02/26/2024 10:00 PM TOP STOP ATTACHER BASIC METABOLIC PANEL Routine 02/26/2024 10:00 PM TOP STOP ATTACHER CBC WITHOUT DIFFERENTIAL Routine 02/26/2024 10:00 PM TOP STOP ATTACHER HEPATITIS B SURFACE ANTIGEN STAT 02/26/2024 2:36 PM TOP STOP ATTACHER MATERIAL SPREADER EVALUATE AND TREAT FIBEROPTIC ENDOSCOPIC SWALLOW STAT 02/26/2024 9:59 AM TOP STOP ATTACHER EGFR Timed 02/25/2024 10:53 PM TOP STOP ATTACHER BASIC METABOLIC PANEL Timed 02/25/2024 10:53 PM TOP STOP ATTACHER CBC WITHOUT DIFFERENTIAL Routine 02/25/2024 9:45 PM TOP STOP ATTACHER BLOOD GAS, VENOUS STAT 02/25/2024 11: 18 AM TOP STOP ATTACHER ECG 12-LEAD Routine 02/25/2024 11:07 AM TOP STOP ATTACHER EGFR Routine 02/24/2024 8:10 PM TOP STOP ATTACHER CALCIUM, IONIZED Routine 02/24/2024 8:10 PM TOP STOP ATTACHER BASIC METABOLIC PANEL Routine 02/24/2024 8:10 PM TOP STOP ATTACHER CBC WITHOUT DIFFERENTIAL Routine 02/24/2024 8:10 PM TOP STOP ATTACHER DRUGS OF ABUSE SCREEN, URINE WITH REFLEX CONFIRMATION Routine 02/24/2024 1:51 AM TOP STOP ATTACHER URINALYSIS, MICROSCOPIC ONLY Routine 02/24/2024 1:51 AM TOP STOP ATTACHER URINALYSIS AND REFLEX TO MICROSCOPIC AND CULTURE Routine 02/24/2024 1:51 AM TOP STOP ATTACHER EEG Routine 02/24/2024 1:16 AM TOP STOP ATTACHER B CHECK SAMPLE STAT 02/24/2024 12:05 AM TOP STOP ATTACHER CALCIUM, IONIZED STAT 02/23/2024 10:4 7 PM TOP STOP ATTACHER TROPONIN I HIGH-SENSITIVITY 4-HOUR Timed 02/23/2024 10:47 PM TOP STOP ATTACHER HEMOGLOBIN A1C STAT 02/23/2024 9:23 PM TOP STOP ATTACHER LIPID PANEL Timed 02/23/2024 9:23 PM TOP STOP ATTACHER EGFR Timed 02/23/2024 9:23 PM TOP STOP ATTACHER PHOSPHORUS Timed 02/23/2024 9:23 PM TOP STOP ATTACHER MAGNESIUM Timed 02/23/2024 9:23 PM TOP STOP ATTACHER COMPREHENSIVE METABOLIC PANEL Timed 02/23/2024 9:23 PM TOP STOP ATTACHER PROTIME-INR STAT 02/23/2024 9:23 PM TOP STOP ATTACHER APTT STAT 02/23/2024 9:23 PM TOP STOP ATTACHER TYPE AND SCREEN STAT 02/23/2024 9:23 PM TOP STOP ATTACHER CBC WITHOUT DIFFERENTIAL STAT 02/23/2024 9:23 PM TOP STOP ATTACHER TROPONIN I HIGH-SENSITIVITY 2-HOUR Timed 02/23/2024 9:23 PM TOP STOP ATTACHER RESPIRATORY PATHOGEN PANEL Routine 02/23/2024 8:58 PM TOP STOP ATTACHER BLOOD CULTURE STAT 02/23/2024 8:58 PM TOP STOP ATTACHER BLOOD CULTURE STAT 02/23/2024 8:58 PM TOP STOP ATTACHER ECG 12-LEAD STAT 02/23/2024 8:29 PM TOP STOP ATTACHER POCT GLUCOSE DEVICE Routine 02/23/2024 8 :20 PM TOP STOP ATTACHER MRI BRAIN WO CONTRAST Critical/Life-T hreatening 02/23/2024 8:07 PM TOP STOP ATTACHER XR CHEST 1 VIEW IP Routine 02/23/2024 7:36 PM TOP STOP ATTACHER ECG 12-LEAD STAT 02/23/2024 7:00 PM TOP STOP ATTACHER AK CRITICAL CARE ILL/INJURED PATIENT INIT 30-74 MIN Routine 02/23/2024 6:58 PM TOP STOP ATTACHER EGFR STAT 02/23/2024 6:40 PM TOP STOP ATTACHER MAGNESIUM STAT 02/23/2024 6:40 PM TOP STOP ATTACHER DIFFERENTIAL AUTO STAT 02/23/2024 6:4 0 PM TOP STOP ATTACHER TROPONIN I HIGH-SENSITIVITY SERIES (BASELINE, 2HR, 4HR, 6HR) STAT 02/23/2024 6:40 PM TOP STOP ATTACHER APTT STAT 02/23/2024 6:40 PM TOP STOP ATTACHER COMPREHENSIVE METABOLIC PANEL STAT 02/23/2024 6:40 PM TOP STOP ATTACHER CBC WITH AUTO DIFFERENTIAL STAT 02/23/2024 6:[address] STROKE PROTOCOL W WO CONTRAST Critical/Life-T hreatening 02/23/2024 6:35 PM TOP STOP ATTACHER POCT PROTHROMBIN TIME, WHOLE BLOOD Routine 02/23/2024 6:22 PM TOP STOP ATTACHER POCT GLUCOSE DEVICE Routine 02/23/2024 6 :21 PM TOP STOP ATTACHER from Last 3 Months Results * IR Exchange Tunneled CVC (03/05/2024 10:02 AM TOP STOP ATTACHER) Anatomical Region Laterality Modality Body Left X-Ray Angiograph y 03/05/2024 11:5 8 AM TOP STOP ATTACHER Impressions 03/05/2024 2:09 PM TOP STOP ATTACHER Successful fluoroscopically guided tunneled central venous catheter exchange as described above. The left internal jugular 28 cm tip to cuff Duraflow tunneled catheter is ready for immediate use. Dictated by: Komal Dsouza MD The radiology attending physician has personally reviewed this study, and had reviewed and/or edited this written report and agrees with it. Electronically signed by: Latrell Renee M.D. Narrative 03/05/2024 2:09 PM TOP STOP ATTACHER EXAMINATION: ??LEFT FLUOROSCOPICALLY GUIDED TUNNELED CENTRAL VENOUS CATHETER EXCHANGE HISTORY/INDICATION: ??Patient with end-stage renal disease requiring hemodialysis MWF, patient was unable to undergo dialysis on 03/03 due to malfunctioning tunneled line, one lumen not flushing or drawing back, catheter was slightly backed out ATTENDING PRESENCE: Latrell Renee M.D., the attending radiologist was present from the beginning to the end of the procedure SEDATION: The patient did not require conscious sedation for the procedure. TECHNIQUE: ??The risks, benefits and alternatives were discussed and informed consent was obtained. Prior to beginning the procedure, [place] Protocol was performed to confirm the patient's identity and the planned procedure. ??For procedures that utilize fluoroscopy, the fluoroscopy time has been recorded in the electronic medical record. ??Maximum sterile barriers including cap, mask, hand hygiene, sterile gloves, sterile gown, large sterile drape and 2% chlorhexidine for cutaneous antisepsis were used. The catheter exit site was anesthetized with 1% Lidocaine. Using blunt and sharp dissection, the cuff of the catheter was freed up from the underlying tissue. A guidewire was then advanced through the catheter and into the venous system using fluoroscopic guidance. A new Duraflow catheter 28 cm tip to cuff was advanced over the guidewire and into the central circulation. The tip of the catheter was placed in the right atrium . The catheter was capped and flushed with heparin. It was sutured in place using Ethilon suture. ??A sterile dressing was applied. ESTIMATED BLOOD LOSS: Minimal. CONDITION: Stable DISCHARGED TO: Emergency department FINDINGS: ??Final fluoroscopic spot image shows the catheter to be in appropriate position. No complications are identified. Procedure Note Latrell Renee MD PhD - 03/05/2024 EXAMINATION: LEFT FLUOROSCOPICALLY GUIDED TUNNELED CENTRAL VENOUS CATHETER EXCHANGE HISTORY/INDICATION: Patient with end-stage renal disease requiring hemodialysis MWF, patient was unable to undergo dialysis on 03/03 due to malfunctioning tunneled line, one lumen not flushing or drawing back, catheter was slightly backed out ATTENDING PRESENCE: Latrell Renee M.D., the attending radiologist was present from the beginning to the end of the procedure SEDATION: The patient did not require conscious sedation for the procedure. TECHNIQUE: The risks, benefits and alternatives were discussed and informed consent was obtained. Prior to beginning the procedure, [place] Protocol was performed to confirm the patient's identity and the planned procedure. For procedures that utilize fluoroscopy, the fluoroscopy time has been recorded in the electronic medical record. Maximum sterile barriers including cap, mask, hand hygiene, sterile gloves, sterile gown, large sterile drape and 2% chlorhexidine for cutaneous antisepsis were used. The catheter exit site was anesthetized with 1% Lidocaine. Using blunt and sharp dissection, the cuff of the catheter was freed up from the underlying tissue. A guidewire was then advanced through the catheter and into the venous system using fluoroscopic guidance. A new Duraflow catheter 28 cm tip to cuff was advanced over the guidewire and into the central circulation. The tip of the catheter was placed in the right atrium . The catheter was capped and flushed with heparin. It was sutured in place using Ethilon suture. A sterile dressing was applied. ESTIMATED BLOOD LOSS: Minimal. CONDITION: Stable DISCHARGED TO: Emergency department FINDINGS: Final fluoroscopic spot image shows the catheter to be in appropriate position. No complications are identified. IMPRESSION: Successful fluoroscopically guided tunneled central venous catheter exchange as described above. The left internal jugular 28 cm tip to cuff Duraflow tunneled catheter is ready for immediate use. Dictated by: Komal Dsouza MD The radiology attending physician has personally reviewed this study, and had reviewed and/or edited this written report and agrees with it. Electronically signed by: Latrell Renee M.D. us Kamila Jim MD IMG IR PROCEDURES Tiki l Result * (ABNORMAL) eGFR (03/05/2024 7:37 AM TOP STOP ATTACHER) eGFR 6(L) >=60 mL/min/1. 73 m2 Comment: Interpretive Data Reference Interval Normal ?>/= 90 mL/min/1.73m2 Mildly decreased* ? 60 - 89 mL/min/1.73m2 Mildly to moderately decreased ?45 - 59 mL/min/1.73m2 Moderately to severely decreased ??30 - 44 mL/min/1.73m2 Severely decreased ?15 - 29 mL/min/1.73m2 Kidney Failure ?< 15 ??mL/min/1.73m2 *Relative to young adult level Estimated glomerular filtration rate is determined by the 2020 CKD-EPI equation recommended by the National Kidney Foundation (A Unifying Approach to GFR Estimation: Recommendations of the NKF-ASK Task Force on Reassessing the Inclusion of Race in Diagnosing Kidney Disease, JASN 2020). The CKD-EPI equation should not be used for patients with unstable renal function and has not been validated in children and those over 70. Current interpretive data was last reviewed 2021. Blood 03/05/2024 7:37 AM TOP STOP ATTACHER 03/05/2024 7:53 AM TOP STOP ATTACHER us Layton Amaro MD LAB BLOOD ORDERABLES Final Result Performing Organization Address City/State/ZIP Co sd Phone Number [facility] Department [place] [address] * Differential, auto (03/05/2024 7:37 AM TOP STOP ATTACHER) Neutrophil abs 4.6 1.5 - 6.5 K/cumm Imm gran abs 0.0 0.0 - 0.1 K/cumm [facility] Lymphocyte abs 1.8 0.8 - 3.3 K/cumm [facility] Monocyte abs 0.7 0.2 - 0.8 K/cumm [facility] Eosinophil abs 0.4 0.0 - 0.5 K/cumm [facility] Basophil abs 0.1 0.0 - 0.1 K/cumm [facility] Neutrophil pct 60.6 % [facility] Comment: Interpretive Data Percent cell count reference ranges are not reported, since discordance with absolute values may lead to misinterpretation of CBC data. Current Interpretive Data was last revised on 2017. Imm gran pct 0.4 % [facility] Comment: Interpretive Data Percent cell count reference ranges are not reported, since discordance with absolute values may lead to misinterpretation of CBC data. Current Interpretive Data was last revised on 2017. Lymphocyte pct 23.6 % [facility] Comment: Interpretive Data Percent cell count reference ranges are not reported, since discordance with absolute values may lead to misinterpretation of CBC data. Current Interpretive Data was last revised on 2017. Monocyte pct 9.8 % [facility] Comment: Interpretive Data Percent cell count reference ranges are not reported, since discordance with absolute values may lead to misinterpretation of CBC data. Current Interpretive Data was last revised on 2017. Eosinophil pct 4.8 % [facility] Comment: Interpretive Data Percent cell count reference ranges are not reported, since discordance with absolute values may lead to misinterpretation of CBC data. Current Interpretive Data was last revised on 2017. Basophil pct 0.8 % [facility] Comment: Interpretive Data Percent cell count reference ranges are not reported, since discordance with absolute values may lead to misinterpretation of CBC data. Current Interpretive Data was last revised on 2017. Blood 03/05/2024 7:37 AM TOP STOP ATTACHER 03/05/2024 7:54 AM TOP STOP ATTACHER Layton Amaro MD LAB BLOOD ORDERABLES Final Result [facility] Department [place] [employer] [place] [address] * (ABNORMAL) CBC with auto differential (03/05/2024 7:37 AM TOP STOP ATTACHER) Pathologist [facility] WBC 7.5 3.8 - 9.9 K/cumm Hgb 11.3(L) 11.9 - 15.5 g/dL [facility] Hct 33.9(L) 35.6 - 45.5 % [facility] Plt 233 150 - 400 K/cumm [facility] MPV 10.0 9.1 - 12.3 fL [facility] RBC 3.21(L) 3.90 - 5.20 M/cumm [facility] MCV 105.6(H) 81.3 - 96.4 fL [facility] MCH 35.2(H) 27.1 - 33.3 pg [facility] MCHC 33.3 32.3 - 35.7 g/dL [facility] RDW CV 13.4 11.1 - 14.9 % [facility] RDW SD 51.7(H) 35.7 - 48.1 fL [facility] NRBC abs 0.00 0.00 - 0.01 K/cumm [facility] Blood 03/05/2024 7:37 AM TOP STOP ATTACHER 03/05/2024 7:54 AM TOP STOP ATTACHER Layton Sheridan MD LAB BLOOD ORDERABLES Final Result [facility] [place] [place] [address] * (ABNORMAL) Comprehensive metabolic panel (03/05/2024 7:37 AM TOP STOP ATTACHER) Pathologist [facility] Sodium 141 135 - 145 mmol/L Potassium, pl 5.0(H) 3.3 - 4.9 mmol/L [facility] Chloride 103 97 - 110 mmol/L [facility] CO2 24 22 - 32 mmol/L [facility] Anion gap 14 2 - 15 mmol/L [facility] BUN 40(H) 6 - 25 mg/dL [facility] Creatinine 6.92(H) 0.60 - 1.10 mg/dL [facility] Glucose 87 70 - 199 mg/dL [facility] Comment: Interpretive Data Fasting glucose >/= 126 mg/dl is diagnostic for diabetes. ?? Fasting is defined as no caloric intake for at least 8 hours. Fasting glucose between 100 mg/dl to 125 mg/dl is diagnostic of prediabetes. In a patient with classic symptoms of hyperglycemia or hyperglycemic crisis, a random glucose >/= 200 mg/dl is diagnostic for diabetes. In the absence of unequivocal hyperglycemia, results should be confirmed by repeat testing. The classification and Diagnosis of Diabetes Diabetes Care 202; 46: S19-S40. Current interpretive data was last revised 2022. Calcium 9.7 8.5 - 10.3 mg/dL [facility] Bilirubin, total 0.3 0.1 - 1.2 mg/dL [facility] Protein, pl 6.7 6.5 - 8.5 g/dL [facility] Albumin 4.1 3.5 - 5.0 g/dL [facility] Alk phos 69 40 - 130 Units/L [facility] ALT 13 7 - 45 Units/L [facility] AST 14 10 - 45 Units/L [facility] Blood 03/05/2024 7:37 AM TOP STOP ATTACHER 03/05/2024 7:53 AM TOP STOP ATTACHER us Layton Sheridan MD LAB BLOOD ORDERABLES Final Result [facility] Department of Laboratories [place], [place] [id number] * ECG 12-LEAD (03/04/2024 10:54 PM TOP STOP ATTACHER) Narrative [facility] - 03/04/2024 10:54 PM TOP STOP ATTACHER Viktor Moore MD ? 03/04/2024 10:54 PM ECG 12 lead Date/Time: 03/04/2024 10:54 PM Performed by: Viktor Moore MD Authorized by: Layton Amaro MD ?? us Layton Sheridan MD ECG ORDERABLES Final Resu lt Performing Organization Address [facility] Co de Phone Number [facility] * Neuro MR Outside Reference (03/04/2024 9:40 AM TOP STOP ATTACHER) Impressions [facility] - 03/04/2024 9:40 AM TOP STOP ATTACHER These images are for Reference purposes only and have not been reviewed by [facility]. ??There will be no report generated by a [facility] Radiologist. Narrative [facility] - 03/04/2024 9:40 AM TOP STOP ATTACHER EXAMINATION: ??Images For Reference Purposes Only us Angel Arriaga MD IMG MRI PROCEDURES Final R esult Performing Organization Address [facility] de Phone Number [email or web address] * US Outside Reference (03/04/2024 9:38 AM TOP STOP ATTACHER) Impressions [facility] - 03/04/2024 9:38 AM TOP STOP ATTACHER These images are for Reference purposes only and have not been reviewed by [facility]. ??There will be no report generated by a [facility] Radiologist. Narrative [facility] - 03/04/2024 9:38 AM TOP STOP ATTACHER EXAMINATION: ??Images For Reference Purposes Only us Angel Arriaga MD IMG US PROCEDURES Final Re sult Performing Organization Address [facility] Co de Phone Number [email or web address] * Neuro CT Outside Reference (03/04/2024 9:22 AM TOP STOP ATTACHER) Impressions [email or web address] - 03/04/2024 9:22 AM TOP STOP ATTACHER These images are for Reference purposes only and have not been reviewed by [facility]. ??There will be no report generated by a [facility] Radiologist. Narrative [facility] - 03/04/2024 9:22 AM TOP STOP ATTACHER EXAMINATION: ??Images For Reference Purposes Only Angel Arriaga MD IMG CT PROCEDURES Final Re sult Performing Organization Address [facility] de Phone Number [email or web address] * Neuro MR Outside Reference (03/04/2024 9:08 AM TOP STOP ATTACHER) Impressions [email or web address] - 03/04/2024 9:08 AM TOP STOP ATTACHER These images are for Reference purposes only and have not been reviewed by [facility]. ??There will be no report generated by a [facility] Radiologist. Narrative [facility] - 03/04/2024 9:08 AM TOP STOP ATTACHER EXAMINATION: ??Images For Reference Purposes Only Angel Arriaga MD IMG MRI PROCEDURES Final R esult Performing Organization Address [facility] de Phone Number [email or web address] * Neuro CT Outside Reference (03/04/2024 9:05 AM TOP STOP ATTACHER) Impressions [email or web address] - 03/04/2024 9:05 AM TOP STOP ATTACHER These images are for Reference purposes only and have not been reviewed by [facility]. ??There will be no report generated by a [facility] Radiologist. Narrative [facility] - 03/04/2024 9:05 AM TOP STOP ATTACHER EXAMINATION: ??Images For Reference Purposes Only Angel Arriaga MD IMG CT PROCEDURES Final Re sult Performing Organization Address [facility] de Phone Number [email or web address] * Neuro CT Outside Reference (03/04/2024 8:23 AM TOP STOP ATTACHER) Impressions [email or web address] - 03/04/2024 8:23 AM TOP STOP ATTACHER These images are for Reference purposes only and have not been reviewed by [facility]. ??There will be no report generated by a [facility] Radiologist. Narrative [facility] - 03/04/2024 8:23 AM TOP STOP ATTACHER EXAMINATION: ??Images For Reference Purposes Only Angel Arriaga MD IMG CT PROCEDURES Final Re sult Performing Organization Address [facility] Phone Number [email or web address] * Neuro MR Outside Reference (03/04/2024 8:21 AM TOP STOP ATTACHER) Impressions [email or web address] - 03/04/2024 8:21 AM TOP STOP ATTACHER These images are for Reference purposes only and have not been reviewed by [facility]. ??There will be no report generated by a [facility] Radiologist. Narrative [facility] - 03/04/2024 8:21 AM TOP STOP ATTACHER EXAMINATION: ??Images For Reference Purposes Only Angel Arriaga MD IMG MRI PROCEDURES Final R esult Performing Organization Address [facility] de Phone Number [email or web address] * Neuro CT Outside Reference (03/04/2024 8:07 AM TOP STOP ATTACHER) Impressions [email or web address] - 03/04/2024 8:07 AM TOP STOP ATTACHER These images are for Reference purposes only and have not been reviewed by [facility]. ??There will be no report generated by a [facility] Radiologist. Narrative [facility] - 03/04/2024 8:07 AM TOP STOP ATTACHER EXAMINATION: ??Images For Reference Purposes Only Angel Arriaga MD IMG CT PROCEDURES Final Re sult Performing Organization Address [facility] de Phone Number [email or web address] * Neuro CT Outside Reference (03/04/2024 7:57 AM TOP STOP ATTACHER) Impressions [email or web address] - 03/04/2024 7:57 AM TOP STOP ATTACHER These images are for Reference purposes only and have not been reviewed by [facility]. ??There will be no report generated by a [facility] Radiologist. Narrative [facility] - 03/04/2024 7:57 AM TOP STOP ATTACHER EXAMINATION: ??Images For Reference Purposes Only us Angel Arriaga MD IMG CT PROCEDURES Final Re sult Performing Organization Address [facility] de Phone Number [email or web address] * Neuro CT Outside Reference (03/04/2024 7:54 AM TOP STOP ATTACHER) Impressions [facility] - 03/04/2024 7:54 AM TOP STOP ATTACHER These images are for Reference purposes only and have not been reviewed by [facility]. ??There will be no report generated by a [facility] Radiologist. Narrative [facility] - 03/04/2024 7:54 AM TOP STOP ATTACHER EXAMINATION: ??Images For Reference Purposes Only us Angel Arriaga MD IMG CT PROCEDURES Final Re sult Performing Organization Address [facility] de Phone Number [email or web address] * (ABNORMAL) eGFR (02/28/2024 8:13 PM TOP STOP ATTACHER) eGFR 6(L) >=60 mL/min/1. 73 m2 Comment: Interpretive Data Reference Interval Normal ?>/= 90 mL/min/1.73m2 Mildly decreased* ? 60 - 89 mL/min/1.73m2 Mildly to moderately decreased ?45 - 59 mL/min/1.73m2 Moderately to severely decreased ??30 - 44 mL/min/1.73m2 Severely decreased ?15 - 29 mL/min/1.73m2 Kidney Failure ?< 15 ??mL/min/1.73m2 *Relative to young adult level Estimated glomerular filtration rate is determined by the 2020 CKD-EPI equation recommended by the National Kidney Foundation (A Unifying Approach to GFR Estimation: Recommendations of the NKF-ASK Task Force on Reassessing the Inclusion of Race in Diagnosing Kidney Disease, JASN 2020). The CKD-EPI equation should not be used for patients with unstable renal function and has not been validated in children and those over 70. Current interpretive data was last reviewed 2021. Blood 02/28/2024 8:13 PM TOP STOP ATTACHER 02/28/2024 8:56 PM TOP STOP ATTACHER Fabiana Wilson MD LAB BLOOD ORDERABLES Final Result [facility] Department [place] [address] * (ABNORMAL) CBC without differential (02/28/2024 8:13 PM TOP STOP ATTACHER) WBC 8.5 3.8 - 9.9 K/cumm Hgb 10.8(L) 11.9 - 15.5 g/dL [facility] Hct 33.3(L) 35.6 - 45.5 % [facility] Plt 232 150 - 400 K/cumm [facility] MPV 9.9 9.1 - 12.3 fL [facility] RBC 3.21(L) 3.90 - 5.20 M/cumm [facility] MCV 103.7(H) 81.3 - 96.4 fL [facility] MCH 33.6(H) 27.1 - 33.3 pg [facility] MCHC 32.4 32.3 - 35.7 g/dL [facility] RDW CV 13.6 11.1 - 14.9 % [facility] RDW SD 51.8(H) 35.7 - 48.1 fL [facility] NRBC abs 0.00 0.00 - 0.01 K/cumm [facility] Blood 02/28/2024 8:13 PM TOP STOP ATTACHER 02/28/2024 8:56 PM TOP STOP ATTACHER Fabiana Wilson MD LAB BLOOD ORDERABLES Final Result [facility] Department [place] [address] * (ABNORMAL) Basic metabolic panel (02/28/2024 8:13 PM TOP STOP ATTACHER) Pathologist [facility] Sodium 143 135 - 145 mmol/L Potassium, pl 4.6 3.3 - 4.9 mmol/L [facility] Chloride 105 97 - 110 mmol/L [facility] CO2 24 22 - 32 mmol/L [facility] Anion gap 14 2 - 15 mmol/L [facility] BUN 39(H) 6 - 25 mg/dL [facility] Creatinine 6.70(H) 0.60 - 1.10 mg/dL [facility] Glucose 148 70 - 199 mg/dL [facility] Comment: Interpretive Data Fasting glucose >/= 126 mg/dl is diagnostic for diabetes. ?? Fasting is defined as no caloric intake for at least 8 hours. Fasting glucose between 100 mg/dl to 125 mg/dl is diagnostic of prediabetes. In a patient with classic symptoms of hyperglycemia or hyperglycemic crisis, a random glucose >/= 200 mg/dl is diagnostic for diabetes. In the absence of unequivocal hyperglycemia, results should be confirmed by repeat testing. The classification and Diagnosis of Diabetes Diabetes Care 202; 46: S19-S40. Current interpretive data was last revised 2022. Calcium 9.3 8.5 - 10.3 mg/dL [facility] Blood 02/28/2024 8:13 PM TOP STOP ATTACHER 02/28/2024 8:56 PM TOP STOP ATTACHER us Fabiana Wilson MD LAB BLOOD ORDERABLES Final Result [facility] Department [place] [address] * (ABNORMAL) eGFR (02/27/2024 6:38 PM TOP STOP ATTACHER) [facility] eGFR 7(L) >=60 mL/min/1. 73 m2 Comment: Interpretive Data Reference Interval Normal ?>/= 90 mL/min/1.73m2 Mildly decreased* ? 60 - 89 mL/min/1.73m2 Mildly to moderately decreased ?45 - 59 mL/min/1.73m2 Moderately to severely decreased ??30 - 44 mL/min/1.73m2 Severely decreased ?15 - 29 mL/min/1.73m2 Kidney Failure ?< 15 ??mL/min/1.73m2 *Relative to young adult level Estimated glomerular filtration rate is determined by the 2020 CKD-EPI equation recommended by the National Kidney Foundation (A Unifying Approach to GFR Estimation: Recommendations of the NKF-ASK Task Force on Reassessing the Inclusion of Race in Diagnosing Kidney Disease, JASN 2020). The CKD-EPI equation should not be used for patients with unstable renal function and has not been validated in children and those over 70. Current interpretive data was last reviewed 2021. Blood 02/27/2024 6:38 PM TOP STOP ATTACHER 02/27/2024 7:31 PM TOP STOP ATTACHER us Fabiana Wilson MD LAB BLOOD ORDERABLES Final Result [facility] Department [place] [address] * (ABNORMAL) CBC without differential (02/27/2024 6:38 PM TOP STOP ATTACHER) [facility] WBC 8.5 3.8 - 9.9 K/cumm Hgb 11.5(L) 11.9 - 15.5 g/dL [facility] Hct 34.4(L) 35.6 - 45.5 % [facility] Plt 228 150 - 400 K/cumm [facility] MPV 9.7 9.1 - 12.3 fL [facility] RBC 3.35(L) 3.90 - 5.20 M/cumm [facility] MCV 102.7(H) 81.3 - 96.4 fL [facility] MCH 34.3(H) 27.1 - 33.3 pg [facility] MCHC 33.4 32.3 - 35.7 g/dL [facility] RDW CV 13.6 11.1 - 14.9 % [facility] RDW SD 52.0(H) 35.7 - 48.1 fL [facility] NRBC abs 0.00 0.00 - 0.01 K/cumm [facility] Blood 02/27/2024 6:38 PM TOP STOP ATTACHER 02/27/2024 7:31 PM TOP STOP ATTACHER us Fabiana Wilson MD LAB BLOOD ORDERABLES Final Result [facility] Department [place] [address] * (ABNORMAL) Basic metabolic panel (02/27/2024 6:38 PM TOP STOP ATTACHER) Sodium 142 135 - 145 mmol/L Potassium, pl 4.5 3.3 - 4.9 mmol/L [facility] Chloride 104 97 - 110 mmol/L [facility] CO2 24 22 - 32 mmol/L [facility] Anion gap 14 2 - 15 mmol/L [facility] BUN 26(H) 6 - 25 mg/dL [facility] Creatinine 5.80(H) 0.60 - 1.10 mg/dL [facility] Glucose 124 70 - 199 mg/dL [facility] Comment: Interpretive Data Fasting glucose >/= 126 mg/dl is diagnostic for diabetes. ?? Fasting is defined as no caloric intake for at least 8 hours. Fasting glucose between 100 mg/dl to 125 mg/dl is diagnostic of prediabetes. In a patient with classic symptoms of hyperglycemia or hyperglycemic crisis, a random glucose >/= 200 mg/dl is diagnostic for diabetes. In the absence of unequivocal hyperglycemia, results should be confirmed by repeat testing. The classification and Diagnosis of Diabetes Diabetes Care 2021; 46: S19-S40. Current interpretive data was last revised 2022. Calcium 9.2 8.5 - 10.3 mg/dL [facility] Blood 02/27/2024 6:38 PM TOP STOP ATTACHER 02/27/2024 7:31 PM TOP STOP ATTACHER us Fabiana Wilson MD LAB BLOOD ORDERABLES Final Result Performing Organization Address [facility]/State/ZIP Co de Phone Number [facility] Department [place] [address] * (ABNORMAL) eGFR (02/26/2024 10:00 PM TOP STOP ATTACHER) eGFR 12(L) >=60 mL/min/1. 73 m2 Comment: Interpretive Data Reference Interval Normal ?>/= 90 mL/min/1.73m2 Mildly decreased* ? 60 - 89 mL/min/1.73m2 Mildly to moderately decreased ?45 - 59 mL/min/1.73m2 Moderately to severely decreased ??30 - 44 mL/min/1.73m2 Severely decreased ?15 - 29 mL/min/1.73m2 Kidney Failure ?< 15 ??mL/min/1.73m2 *Relative to young adult level Estimated glomerular filtration rate is determined by the 2020 CKD-EPI equation recommended by the National Kidney Foundation (A Unifying Approach to GFR Estimation: Recommendations of the NKF-ASK Task Force on Reassessing the Inclusion of Race in Diagnosing Kidney Disease, JASN 2020). The CKD-EPI equation should not be used for patients with unstable renal function and has not been validated in children and those over 70. Current interpretive data was last reviewed 2021. Blood 02/26/2024 10:0 0 PM TOP STOP ATTACHER 02/26/2024 10:42 PM TOP STOP ATTACHER Fabiana Wilson MD LAB BLOOD ORDERABLES Final Result Performing Organization Address [facility] Co de Phone Number [facility] Department [place] [address] * (ABNORMAL) CBC without differential (02/26/2024 10:00 PM TOP STOP ATTACHER) [facility] WBC 12.9(H) 3.8 - 9.9 K/cumm Hgb 11.6(L) 11.9 - 15.5 g/dL [facility] Hct 34.3(L) 35.6 - 45.5 % [facility] Plt 224 150 - 400 K/cumm [facility] MPV 9.7 9.1 - 12.3 fL [facility] RBC 3.36(L) 3.90 - 5.20 M/cumm [facility] MCV 102.1(H) 81.3 - 96.4 fL [facility] MCH 34.5(H) 27.1 - 33.3 pg [facility] MCHC 33.8 32.3 - 35.7 g/dL [facility] RDW CV 13.2 11.1 - 14.9 % [facility] RDW SD 50.1(H) 35.7 - 48.1 fL [facility] NRBC abs 0.00 0.00 - 0.01 K/cumm [facility] Blood 02/26/2024 10:0 0 PM TOP STOP ATTACHER 02/26/2024 10:42 PM TOP STOP ATTACHER Fabiana Wilson MD LAB BLOOD ORDERABLES Final Result Performing Organization Address [facility] Co de Phone Number [facility] Department [place] [address] * (ABNORMAL) Basic metabolic panel (02/26/2024 10:00 PM TOP STOP ATTACHER) [facility] Sodium 140 135 - 145 mmol/L Potassium, pl 3.9 3.3 - 4.9 mmol/L [facility] Chloride 102 97 - 110 mmol/L [facility] CO2 26 22 - 32 mmol/L [facility] Anion gap 12 2 - 15 mmol/L [facility] BUN 14 6 - 25 mg/dL [facility] Creatinine 3.79(H) 0.60 - 1.10 mg/dL [facility] Glucose 114 70 - 199 mg/dL [facility] Comment: Interpretive Data Fasting glucose >/= 126 mg/dl is diagnostic for diabetes. ?? Fasting is defined as no caloric intake for at least 8 hours. Fasting glucose between 100 mg/dl to 125 mg/dl is diagnostic of prediabetes. In a patient with classic symptoms of hyperglycemia or hyperglycemic crisis, a random glucose >/= 200 mg/dl is diagnostic for diabetes. In the absence of unequivocal hyperglycemia, results should be confirmed by repeat testing. The classification and Diagnosis of Diabetes Diabetes Care 2021; 46: S19-S40. Current interpretive data was last revised 2022. Calcium 9.0 8.5 - 10.3 mg/dL [facility] Blood 02/26/2024 10:0 0 PM TOP STOP ATTACHER 02/26/2024 10:42 PM TOP STOP ATTACHER us Fabiana Wilson MD LAB BLOOD ORDERABLES Final Result [facility] Department [place] [address] * Hepatitis B Surface Antigen Blood (02/26/2024 2:36 PM TOP STOP ATTACHER) HepBsAg Nonreactive Nonreactive Blood 02/26/2024 2:36 PM TOP STOP ATTACHER 02/26/2024 2:45 PM TOP STOP ATTACHER us Kevon grimm MD LAB MICROBIOLOGY - GENERAL ORDERABLES Final Result [facility] Department [place] [address] * MATERIAL SPREADER Evaluate and Treat (FEES) (02/26/2024 9:59 AM TOP STOP ATTACHER) Narrative [facility] - 02/26/2024 9:59 AM TOP STOP ATTACHER Chika Fish, MATERIAL SPREADER ? 02/26/2024 11:21 AM Speech-Language Pathology: Flexible Endoscopic Evaluation of Swallowing (FEES) HPI/PMH HPI/PMH: ??73 y.o. woman with past medical history of ??ESRD on HD TTS, HTN, undiagnosed COPD, prior left BG/thalamic calcifications/hemorrhage discovered in 2019 after stroke presentation (with residual RSW) who presented with hyperacute onset right sided weakness, right facial droop, and dysarthria. ?? CTH with left deep oliveira calcifications, obscuring whether there is any acute bleed. 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 Due to concern for acute ischemic stroke and question of hemorrhage, she went for hyper-acute MRI. MRI showed no acute infarct and no convincing evidence of acute hemorrhage, with susceptibility artifact in bilateral BG and CBL favored to represent chronic mineralization or sequelae of prior hemorrhage (consistent with prior imaging reports of L BG/thalamic calcifications). Also with scattered chronic infarcts and severe white matter disease. Respiratory/Intubation Status: currently on room air Imaging:bMRI 02/22: 1. ??No acute infarct or convincing evidence of acute intracranial hemorrhage. Asymmetric bilateral basal ganglia and cerebellar dentate nuclei susceptibility artifact favored to represent mineralization. ??The asymmetric left basal ganglia susceptibility could represent chronic sequela of prior hemorrhage. ??Additionally, an outside head CT report from 12/19/2022 mentions unilateral left basal ganglia and thalamic calcification, further supporting chronicity. ??A short-term follow-up head CT in 24 hours could be obtained to ensure stability as clinically indicated. 2. ??Scattered chronic infarcts including right occipital, bilateral thalamic, and bilateral cerebellar lacunar infarcts, some of which have chronic blood products. ??Severe white matter disease likely chronic small vessel ischemic change. 3. Chronic hypertensive microangiopathy. CXR 02/22: ?? Curvilinear opacities in the right midlung in the right lung base, likely scarring/atelectasis. ??No effusion or pneumothorax. Precautions: fall, DAPHNE PLOF: At baseline, she has mild right sided weakness in her upper and lower extremities. She lives with her son and ambulates with a walker, but requires assistance with dressing and bathing, and other IADLs. Current Diet Order: mechanical soft diet/thin liquids Baseline Diet: regular diet/thin liquids per pt report General Information Trisha Waite 02/26/24 General Observations: Pt seen sitting upright in bed. Pt A&Ox2, cooperative, able to follow simple commands without difficulty, suspect mild expressive language deficits given mild communication difficulties observed t/o the evaluation. Pain Score: 0 - No pain If pain >4, was RN notified? N/A Patient Stated Goal/Comments: Pt reported new coughing with PO since admission which occurs ~1x per day. Pt reported having swallowing difficulties following previous strokes but denied any need for altered diet. Pt reported she was on a regular diet/thin liquids prior to this admission. Clinical Impression & Professional Recommendations Diet Solids Recommendation: Mechanical soft Diet Liquids Recommendations: Nathrop thick (No ice in drinks, no ice cream and no jello, soup must be thickened) ?? Recommended Form of Medications: Whole, As tolerated Compensatory Strategies/Modifications: Single sips, Small bites, Double/repeat swallows after every drink Postural Recommendations: Upright 90 degrees Assistance with feeding/swallowing: One to one assist with meals Specialty Instructions: (Please assist pt with oral care 2-3 times a day, including teeth brushing (gums and tongue) to improve the oral biome and reduce the risk of aspiration related complications (i.e., PNA) ?? 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 Deficits result in: With thin liquids, pt with deep penetration (to the level of the vocal folds) before the swallow; chin tuck and cough unsuccessful to clear/prevent penetration. Additional penetration occurred after the swallow as residue spilled into laryngeal vestibule. Material was visualized to spill over posterior commissure and suspect resulted in posterior aspiration (unable to visualize posterior trachea on FEES). However, pt did not sense penetration and cough was unsuccessful to clear penetration from laryngeal vestibule. With nectar thickened liquid, pt with single instance trace moderate depth penetration after the swallow from residue spilling into laryngeal vestibule; however, cued repeat swallow was successful to clear penetration and was successful to prevent any additional penetration t/o the remainder of the study. No penetration or aspiration with any puree or solid trials this date. Mild vallecular and pyriform sinus residue observed with thin liquids, trace with nectar thickened liquid, and no pharyngeal residue with puree or solids. With pt's permission, MATERIAL SPREADER called pt's son to update son on FEES results and recommendations. Pt and pt's son verbalized understanding. Assessment Details & Results Purpose and Procedure of Flexible Endoscopic Evaluation of Swallowing: Completed to assess oropharyngeal swallow function and evaluate the safety/efficiency of the swallow so that diet recommendations can be made. Results are indicative of performance at time of exam. A flexible endoscope was passed transnasally to the level of the hypopharynx without administration of topical anesthetic. The soft palate, pharynx, larynx, and surrounding structures were viewed. Position During Assessment: Position: Seated upright, in a bed Anatomy and Physiology Anatomy and Physiology Findings: No deficits Secretions: Minimal Consistencies Administered: Thin liquids, Nathrop thick liquids, Purees, Solids Thin Liquids: Laryngeal Penetration: Present Aspiration Present: ??(suspect posterior aspiration) Timing: Before, After Amount: Moderate Response to aspiration: None Cough: Non-productive Unsuccessful Modifications: Chin tuck, Repeat swallow, Cough Penetration Aspiration Scale-Thin: 8-Material enters the airway, passes below the vocal folds and no effort is made to eject Yen Scale-Vallecular Residue-Thin Liquids: Mild Raywick Scale-Pyriform Sinus Residue-Thin Liquids: Mild Nathrop Thickened Liquids: Laryngeal Penetration: Present Aspiration Present: No Successful Modifications: Repeat swallow Unsuccessful Modifications: Cough Penetration Aspiration Scale-Nathrop: 3-Material enters the airway, remains above the vocal folds and is not ejected from the airway Raywick Scale-Vallecular Residue-Nathrop Thickened Liquids: Trace Raywick Scale-Pyriform Sinus Residue-Nathrop Thickened Liquids: Trace Purees: Laryngeal Penetration: None Aspiration Present: No Penetration Aspiration Scale-Puree: 1-Material does not enter airway Solids: Laryngeal Penetration: None Aspiration Present: No Penetration Aspiration Scale-Solids: 1-Material does not enter airway Yen Scale-Vallecular Residue-Solids: None Yen Scale-Pyriform Sinus Residue-Solids: None Dysphagia Outcome and Severity Scale: Dysphagia Outcomes and Severity Scale: 5 Mild dysphagia Levels 1 & 2 on the RALPH indicate need for nonoral nutrition. Treatment Treatment was not provided this date. Please reference care plan for treatment goals and details, if indicated. Plan MATERIAL SPREADER Frequency of Services during current admission: 2-4x/wk MATERIAL SPREADER Recommendation (Add'l Services): Inpatient Rehab Facility Next Visit Plan:treatment/therapy Additional Referrals: PT/OT Discharge Summary Statement If this is the last swallow therapy visit, this serves as the discharge summary. us Joe Bolton MD PhD MATERIAL SPREADER ORDERABLES Fi nal Result Performing Organization Address [facility] [place]/[facility]/ZIP Co de Phone Number [facility] * (ABNORMAL) eGFR (02/25/2024 10:53 PM TOP STOP ATTACHER) eGFR 7(L) >=60 mL/min/1. 73 m2 Comment: Interpretive Data Reference Interval Normal ?>/= 90 mL/min/1.73m2 Mildly decreased* ? 60 - 89 mL/min/1.73m2 Mildly to moderately decreased ?45 - 59 mL/min/1.73m2 Moderately to severely decreased ??30 - 44 mL/min/1.73m2 Severely decreased ?15 - 29 mL/min/1.73m2 Kidney Failure ?< 15 ??mL/min/1.73m2 *Relative to young adult level Estimated glomerular filtration rate is determined by the 2020 CKD-EPI equation recommended by the National Kidney Foundation (A Unifying Approach to GFR Estimation: Recommendations of the NKF-ASK Task Force on Reassessing the Inclusion of Race in Diagnosing Kidney Disease, JASN 2020). The CKD-EPI equation should not be used for patients with unstable renal function and has not been validated in children and those over 70. Current interpretive data was last reviewed 2021. Blood 02/25/2024 10:5 3 PM TOP STOP ATTACHER 02/25/2024 11:27 PM TOP STOP ATTACHER us Joe Bolton MD PhD LAB BLOOD ORDERABL ES Final Result Performing Organization Address City/[facility] Co de Phone Number [facility] Department [place] [address] * (ABNORMAL) Basic metabolic panel (02/25/2024 10:53 PM TOP STOP ATTACHER) [facility] Sodium 141 135 - 145 mmol/L Potassium, pl 4.7 3.3 - 4.9 mmol/L [facility] Chloride 106 97 - 110 mmol/L [facility] CO2 25 22 - 32 mmol/L [facility] Anion gap 10 2 - 15 mmol/L [facility] BUN 36(H) 6 - 25 mg/dL [facility] Creatinine 6.26(H) 0.60 - 1.10 mg/dL [facility] Glucose 108 70 - 199 mg/dL [facility] Comment: Interpretive Data Fasting glucose >/= 126 mg/dl is diagnostic for diabetes. ?? Fasting is defined as no caloric intake for at least 8 hours. Fasting glucose between 100 mg/dl to 125 mg/dl is diagnostic of prediabetes. In a patient with classic symptoms of hyperglycemia or hyperglycemic crisis, a random glucose >/= 200 mg/dl is diagnostic for diabetes. In the absence of unequivocal hyperglycemia, results should be confirmed by repeat testing. The classification and Diagnosis of Diabetes Diabetes Care 2021; 46: S19-S40. Current interpretive data was last revised 2022. Calcium 9.7 8.5 - 10.3 mg/dL [facility] Blood 02/25/2024 10:5 3 PM TOP STOP ATTACHER 02/25/2024 11:27 PM TOP STOP ATTACHER us Joe Bolton MD PhD LAB BLOOD ORDERABL ES Final Result [facility] Department [place] [address] * (ABNORMAL) CBC without differential (02/25/2024 9:45 PM TOP STOP ATTACHER) [facility] WBC 11.5(H) 3.8 - 9.9 K/cumm Hgb 10.8(L) 11.9 - 15.5 g/dL [facility] Hct 32.7(L) 35.6 - 45.5 % [facility] Plt 244 150 - 400 K/cumm [facility] MPV 9.5 9.1 - 12.3 fL [facility] RBC 3.15(L) 3.90 - 5.20 M/cumm [facility] MCV 103.8(H) 81.3 - 96.4 fL [facility] MCH 34.3(H) 27.1 - 33.3 pg [facility] MCHC 33.0 32.3 - 35.7 g/dL [facility] RDW CV 13.2 11.1 - 14.9 % [facility] RDW SD 50.4(H) 35.7 - 48.1 fL [facility] NRBC abs 0.00 0.00 - 0.01 K/cumm [facility] Blood 02/25/2024 9:45 PM TOP STOP ATTACHER 02/25/2024 10:39 PM TOP STOP ATTACHER us Fabiana Wilson MD LAB BLOOD ORDERABLES Final Result Performing Organization Address City/[facility] Co de Phone Number [facility] Department [place] [address] * (ABNORMAL) Blood gas, venous (02/25/2024 11:18 AM TOP STOP ATTACHER) pH, Venous 7.36 7.32 - 7.43 PCO2, Venous 36(L) 40 - 50 mmHg [facility] PO2, Venous 47 mmHg [facility] Comment: Interpretive Data No Reference Range Established Current Interpretive Data was last revised on 2017. HCO3 Venous, Calculated 21 20 - 30 mmol/L [facility] BE, venous -4 mmol/L [facility] Comment: Interpretive Data No Reference Range Established Current Interpretive Data was last revised on 2017. Blood 02/25/2024 11:1 8 AM TOP STOP ATTACHER 02/25/2024 11:25 AM TOP STOP ATTACHER us Joe Bolton MD PhD LAB BLOOD ORDERABL ES Final Result Performing Organization Address City/[facility]/ZIP Co de Phone Number [facility] Department [place] [address] * ECG 12 lead (02/25/2024 11:07 AM TOP STOP ATTACHER) [facility] Ventricular Rate EKG/Min 72 BPM [facility] Atrial Rate 72 BPM [facility] AK-Interval (MSEC) 144 ms [facility] QRS-Interval (MSEC) 88 ms [facility] QT-Interval (MSEC) 428 ms [facility] QTc 468 ms [facility] P [place] 48 degrees [facility] R [place] -68 degrees [facility] T [place] 52 degrees [facility] Diagnosis Normal sinus rhythm Left axis deviation Inferior infarct (cited on or before 23-FEB-2024) Abnormal ECG Confirmed by Alxeis BELL, [facility] ([id number]) on 02/26/2024 12:39:03 AM [facility] 02/25/2024 11:0 7 AM TOP STOP ATTACHER 02/26/2024 12:39 AM TOP STOP ATTACHER us Joe Bolton MD PhD ECG ORDERABLES Fi nal Result [facility] * (ABNORMAL) eGFR (02/24/2024 8:10 PM TOP STOP ATTACHER) [facility] eGFR 8(L) >=60 mL/min/1. 73 m2 Comment: Interpretive Data Reference Interval Normal ?>/= 90 mL/min/1.73m2 Mildly decreased* ? 60 - 89 mL/min/1.73m2 Mildly to moderately decreased ?45 - 59 mL/min/1.73m2 Moderately to severely decreased ??30 - 44 mL/min/1.73m2 Severely decreased ?15 - 29 mL/min/1.73m2 Kidney Failure ?< 15 ??mL/min/1.73m2 *Relative to young adult level Estimated glomerular filtration rate is determined by the 2020 CKD-EPI equation recommended by the National Kidney Foundation (A Unifying Approach to GFR Estimation: Recommendations of the NKF-ASK Task Force on Reassessing the Inclusion of Race in Diagnosing Kidney Disease, JASN 2020). The CKD-EPI equation should not be used for patients with unstable renal function and has not been validated in children and those over 70. Current interpretive data was last reviewed 2021. Blood 02/24/2024 8:10 PM TOP STOP ATTACHER 02/24/2024 8:26 PM TOP STOP ATTACHER Fabiana Wilson MD LAB BLOOD ORDERABLES Final Result Performing Organization Address City/[facility]/ZIP Co de Phone Number [facility] Department [place] [address] * Calcium, ionized (02/24/2024 8:10 PM TOP STOP ATTACHER) Pathologist [facility] Calcium, Ionized 4.55 4.50 - 5.10 mg/dL Blood 02/24/2024 8:10 PM TOP STOP ATTACHER 02/24/2024 8:22 PM TOP STOP ATTACHER us Laly Clements NP LAB BLOOD ORDERABLES Final Result Performing Organization Address City/[facility]/ZIP Co de Phone Number [facility] Department [place] [address] * (ABNORMAL) CBC without differential (02/24/2024 8:10 PM TOP STOP ATTACHER) WBC 10.0(H) 3.8 - 9.9 K/cumm Hgb 10.4(L) 11.9 - 15.5 g/dL [facility] Hct 31.6(L) 35.6 - 45.5 % [facility] Plt 228 150 - 400 K/cumm [facility] MPV 9.8 9.1 - 12.3 fL [facility] RBC 3.06(L) 3.90 - 5.20 M/cumm [facility] MCV 103.3(H) 81.3 - 96.4 fL [facility] MCH 34.0(H) 27.1 - 33.3 pg [facility] MCHC 32.9 32.3 - 35.7 g/dL [facility] RDW CV 13.5 11.1 - 14.9 % [facility] RDW SD 51.5(H) 35.7 - 48.1 fL [facility] NRBC abs 0.00 0.00 - 0.01 K/cumm [facility] Blood 02/24/2024 8:10 PM TOP STOP ATTACHER 02/24/2024 8:26 PM TOP STOP ATTACHER us Fabiana Wilson MD LAB BLOOD ORDERABLES Final Result [facility] Department [place] [address] * (ABNORMAL) Basic metabolic panel (02/24/2024 8:10 PM TOP STOP ATTACHER) Sodium 141 135 - 145 mmol/L Potassium, pl 4.8 3.3 - 4.9 mmol/L [facility] Chloride 100 97 - 110 mmol/L [facility] CO2 27 22 - 32 mmol/L [facility] Anion gap 14 2 - 15 mmol/L [facility] BUN 32(H) 6 - 25 mg/dL [facility] Creatinine 5.37(H) 0.60 - 1.10 mg/dL [facility] Glucose 99 70 - 199 mg/dL [facility] Comment: Interpretive Data Fasting glucose >/= 126 mg/dl is diagnostic for diabetes. ?? Fasting is defined as no caloric intake for at least 8 hours. Fasting glucose between 100 mg/dl to 125 mg/dl is diagnostic of prediabetes. In a patient with classic symptoms of hyperglycemia or hyperglycemic crisis, a random glucose >/= 200 mg/dl is diagnostic for diabetes. In the absence of unequivocal hyperglycemia, results should be confirmed by repeat testing. The classification and Diagnosis of Diabetes Diabetes Care 202; 46: S19-S40. Current interpretive data was last revised 2022. Calcium 9.3 8.5 - 10.3 mg/dL [facility] Blood 02/24/2024 8:10 PM TOP STOP ATTACHER 02/24/2024 8:26 PM TOP STOP ATTACHER Fabiana Wilson MD LAB BLOOD ORDERABLES Final Result [facility] Department [place] [address] * (ABNORMAL) Drugs of Abuse Screen, Urine with Reflex Confirmation (02/24/2024 1:51 AM TOP STOP ATTACHER) Amphetamine, ur Not Detected CutOff 500ng/mL Comment: Interpretive Data - Amphetamines: ??Samples containing greater than 500 ng/mL d-methamphetamine ??or other cross-reacting amphetamine compounds are reported as positive. ??Amphetamine immunoassays are subject to significant false positive rates due to cross-reactivity of non-amphetamine drugs. Confirmatory testing required for definitive results. Current Interpretive Data was last reviewed 2022. Barbiturates, ur Not Detected CutOff 200ng/mL [facility] Comment: Interpretive Data - Barbiturates: ??Samples containing greater than 200 ng/mL secobarbital or other cross-reacting barbiturate compounds are reported as positive. ??False positive and false negative results are possible. Confirmatory testing required for definitive results. Current Interpretive Data was last reviewed 2022. Benzodiazepines, ur Not Detected CutOff 100ng/mL [facility] Comment: Interpretive Data - Benzodiazepines: ??Samples containing greater than 100 ng/mL nordiazepam or other cross-reacting compounds are reported as positive. False positive and false negative results are possible. Confirmatory testing required for definitive results. Current Interpretive Data was last reviewed 2022. Cannabinoids, ur Screen Positive, presumptive (A) CutOff 50 ng/mL [facility] Comment: Interpretive Data - Cannabinoids: ??Samples containing greater than 50 ng/mL delta-9 THC -COOH or other cross-reacting compounds are reported as positive. ??False positive and false negative results are possible. ??Confirmatory testing required for definitive results. Current Interpretive Data was last reviewed 2022. Cocaine, ur Not Detected CutOff 150ng/mL [facility] Comment: Interpretive Data - Cocaine: ??Samples containing greater than 150 ng/mL benzoylecgonine or other cross-reacting compounds are reported as positive. False positive and false negative results are possible. Confirmatory testing required for definitive results. Current Interpretive Data was last reviewed 2022. Fentanyl, Ur Not Detected CutOff 5 ng/mL [facility] Comment: Interpretive Data - Fentanyl: ?? Samples containing greater than 5 ng/mL norfentanyl, fentanyl, or other cross-reacting fentanyl compounds are reported as positive. False positive and false negative results are possible. Confirmatory testing required for definitive results. Current Interpretive Data was last reviewed 2023. Methadone, ur Not Detected CutOff 300ng/mL [facility] Comment: Interpretive Data - Methadone: ??Samples containing greater than 300 ng/mL d,l-methadone or other cross-reacting compounds are reported as positive. ??False positive and false negative results are possible. Confirmatory testing required for definitive results. Current Interpretive Data was last reviewed 2022. Opiates, ur Not Detected CutOff 300ng/mL [facility] Comment: Interpretive Data - Opiates: ??Samples containing greater than 300 ng/mL morphine or other cross-reacting compounds are reported as positive. ??False positive and false negative results are possible. Confirmatory testing required for definitive results. Current Interpretive Data was last reviewed 2022. Oxycodone, ur Not Detected CutOff 100ng/mL [facility] Comment: Interpretive Data - Oxycodone: ??Samples containing greater than 100 ng/mL oxycodone or other cross-reacting compounds are reported as ??positive. ??False positive and false negative results are possible. Confirmatory testing required for definitive results. Current Interpretive Data was last reviewed 2022. Phencyclidine, ur Not Detected CutOff 25 ng/mL [facility] Comment: Interpretive Data - Phencyclidine: ??Samples containing greater than 25 ng/mL phencyclidine or other cross-reacting compounds are reported as positive. ??False positive and false negative results are possible. Confirmatory testing required for definitive results. Current Interpretive Data was last reviewed 2022. Urine Creatinine 51 mg/dL [facility] Comment: Interpretive Data Urine Creatinine: < 10 mg/dL is extremely dilute = or > 10 but < 20 mg/dL is dilute = or > 20 mg/dL is normal Current Interpretive Data was last revised on 2017. Urine 02/24/2024 1:51 AM TOP STOP ATTACHER 02/24/2024 6:04 AM TOP STOP ATTACHER Fabiana Wilson MD LAB URINE ORDERABLES Final Result Performing Organization Address City/[facility] Co de Phone Number [facility] Department [place] [address] * (ABNORMAL) Urinalysis reflex to microscopic and culture Urine (02/24/2024 1:51 AM TOP STOP ATTACHER) Color, ur Straw Yellow Clarity, ur Clear Clear [facility] Specific gravity, ur 1.024 1.003 - 1.030 [facility] pH, urine 8.0 [facility] Comment: Interpretive Data ? Urine pH is affected by diet, medications, systemic acid-base disturbances, and renal tubular function. ??pH may affect urinary stone formation. ??For example, urine pH below 6.0 may help reduce the tendency for calcium phosphate stones and pH greater than 6.0 may reduce the tendency for uric acid stone formation. Source: [facility] Current Interpretive Data was last revised on 2017 Protein, ur ql 1+(A) Negative [facility] Glucose, ur ql Negative Negative [facility] Ketones, ur Negative Negative [facility] Bilirubin, ur Negative Negative [facility] Blood, ur Negative Negative [facility] Urobilinogen, ur <2.0 <2.0 mg/dL [facility] Nitrite, ur Negative Negative [facility] Leukocyte esterase, ur Negative Negative [facility] UA reflex comment Reflex to microscopic UA will be performed. [facility] Urine 02/24/2024 1:51 AM TOP STOP ATTACHER 02/24/2024 5:36 AM TOP STOP ATTACHER Fabiana Wilson MD LAB MICROBIOLOGY - GENERAL ORDERABLES Final Result Performing Organization Address City/[facility] Co de Phone Number CERNER [facility] [place] [address] * (ABNORMAL) Urinalysis, microscopic only (02/24/2024 1:51 AM TOP STOP ATTACHER) WBC, ur 0-5 0 - 5 /HPF RBC, ur 3-5(A) 0 - 2 /HPF [facility] Epithelial cells, squamous, ur 1-5 0 - 5 /HPF [facility] Bacteria, ur Trace(A) [facility] Culture Reflex Comment Reflex conditions for urine culture (WBC >10) not met. [facility] Urine 02/24/2024 1:51 AM TOP STOP ATTACHER 02/24/2024 5:36 AM TOP STOP ATTACHER us Fabiana Wilson MD LAB URINE ORDERABLES Final Result [facility] [place] [address] * EEG (02/24/2024 1:16 AM TOP STOP ATTACHER) Anatomical Region Laterality Modality EEG Narrative 02/24/2024 10:46 AM TOP STOP ATTACHER Routine EEG Report Patient Name: Trisha Waite [facility] Medical Record Number (MRN): [id number] [facility] Record: No Lexi MRN Date of (): 1950 EEG Date: 02/24/2024 Ordering Provider: Parker Pulido MD CC: No, Physician Start Time: 02/24/2024 12:25:02 AM ? End Time: ??02/24/2024 12:54:17 AM Introduction: Ms. Waite is a 73 y.o. female with a history of prior left BG/thalamus calcifications, ESRD on HD TTS, HTN, and undiagnosed COPD, who presented with recrudescence of stroke symptoms, concerning for seizures. EEG was performed to evaluate for seizures. This is a 32 channel EEG recording acquired on a [employer] EEG-1200 acquisition system. Scalp electrodes were placed according to the international 10-20 System. The analog EEG was filtered from 1-70 Hz and digitally sampled at 200 Hz. The record was then reformatted for review in bipolar and referential montages. EEG Description: There was no well-developed posterior rhythm. The background consisted of bilateral, diffuse, asynchronous admixed theta and delta range activity, more prominent over the left hemisphere, maximal over the left temporal region. The record showed variability. Hyperventilation was not performed. Photic strobe stimulation elicited no abnormalities. There were no epileptiform abnormalities. Interpretation: The EEG was abnormal due to 1) left hemisphere slowing, maximal over the left temporal region and 2) moderate generalized slowing. Focal slowing indicates focal cerebral dysfunction. ??A focal structural or physiologic abnormality should be considered. Generalized slowing indicates diffuse cerebral dysfunction as seen in metabolic, toxic, or diffuse or multifocal structural abnormalities. By signing this report, the attending Electroencephalographer certifies that he/she personally reviewed the electrodiagnostics study and has edited this report to fully conform with his/her intent. Signing Attending: Devonte Camejo MD PhD Fabiana Wilson MD NEUROLOGY ORDERABLES Final Result * Check Sample (02/24/2024 12:05 AM TOP STOP ATTACHER) Pathologist [facility] ABO Rh O Positive [facility] OTHER 02/24/2024 12:0 5 AM TOP STOP ATTACHER 02/24/2024 1:30 AM TOP STOP ATTACHER Fabiana Wilson MD LAB BLOOD ORDERABLES Final Result [facility] Department [place] [address] [facility] * Troponin I high-sensitivity 4-hour (02/23/2024 10:47 PM TOP STOP ATTACHER) Trop I hs 5 <=17 ng/L Comment: Interpretive Data For further [facility] resources including the diagnostic algorithm and an aid in interpretation, copy and paste this link: [email or web address] Current Interpretive Data last revised 2019. Trop I hs delta -1 ng/L [facility] Trop I hs interp Insignificant [facility] Blood 02/23/2024 10:4 7 PM TOP STOP ATTACHER 02/23/2024 11:47 PM TOP STOP ATTACHER Fabiana Wilson MD LAB BLOOD ORDERABLES Final Result Performing Organization Address [facility] [place]/[facility] Co de Phone Number [facility] [place] [address] * (ABNORMAL) Calcium, ionized (02/23/2024 10:47 PM TOP STOP ATTACHER) Pathologist [facility] Calcium, Ionized 3.82(L) 4.50 - 5.10 mg/dL Blood 02/23/2024 10:4 7 PM TOP STOP ATTACHER 02/23/2024 11:34 PM TOP STOP ATTACHER Fabiana Wilson MD LAB BLOOD ORDERABLES Final Result Performing Organization Address [facility] de Phone Number [facility] [place] [address] * Troponin I high-sensitivity 2-hour (02/23/2024 9:23 PM TOP STOP ATTACHER) [facility] Trop I hs 6 <=17 ng/L Comment: Interpretive Data For further [facility] resources including the diagnostic algorithm and an aid in interpretation, copy and paste this link: [email or web address] Current Interpretive Data last revised 2019. Trop I hs delta 0 ng/L [facility] Trop I hs interp Insignificant CERNER BJ H Blood 02/23/2024 9:23 PM TOP STOP ATTACHER 02/23/2024 10:50 PM TOP STOP ATTACHER Result [facility] Fabiana Wilson MD LAB BLOOD ORDERABLES Final Result Performing Organization Address [facility] Co de Phone Number [facility] [place] [address] * (ABNORMAL) eGFR (02/23/2024 9:23 PM TOP STOP ATTACHER) eGFR 11(L) >=60 mL/min/1. 73 m2 Comment: Interpretive Data Reference Interval Normal ?>/= 90 mL/min/1.73m2 Mildly decreased* ? 60 - 89 mL/min/1.73m2 Mildly to moderately decreased ?45 - 59 mL/min/1.73m2 Moderately to severely decreased ??30 - 44 mL/min/1.73m2 Severely decreased ?15 - 29 mL/min/1.73m2 Kidney Failure ?< 15 ??mL/min/1.73m2 *Relative to young adult level Estimated glomerular filtration rate is determined by the 2020 CKD-EPI equation recommended by the National Kidney Foundation (A Unifying Approach to GFR Estimation: Recommendations of the NKF-ASK Task Force on Reassessing the Inclusion of Race in Diagnosing Kidney Disease, JASN 2020). The CKD-EPI equation should not be used for patients with unstable renal function and has not been validated in children and those over 70. Current interpretive data was last reviewed 2021. Blood 02/23/2024 9:23 PM TOP STOP ATTACHER 02/23/2024 10:49 PM TOP STOP ATTACHER us Fabiana Wilson MD LAB BLOOD ORDERABLES Final Result [facility] Department [place] [address] * (ABNORMAL) aPTT (02/23/2024 9:23 PM TOP STOP ATTACHER) aPTT 25(L) 28 - 38 sec Comment: Interpretive Data Heparin therapeutic range: 66.0 - 100.0 seconds. Range based on correlation with therapeutic heparin activity range of 0.3 - 0.7 Units/mL. Current interpretive data was last revised on 2022. Blood 02/23/2024 9:23 PM TOP STOP ATTACHER 02/23/2024 10:40 PM TOP STOP ATTACHER Fabiana Wilson MD LAB BLOOD ORDERABLES Final Result Performing Organization Address [facility] [place] [address] * Protime-INR (02/23/2024 9:23 PM TOP STOP ATTACHER) PT 10.8 9.7 - 13.0 sec INR 1.00 0.90 - 1.20 [facility] Comment: Interpretive data Oral anticoagulant therapeutic ranges: Venous thromboembolism prophylaxis or treatment: 2.0-3.0 CARDIOLOGY Standard range: 2.0-3.0 High-intensity range: 2.5-3.5 Refer to indication-specific guidelines for appropriate target ranges for prosthetic heart valve replacement. Current interpretive data was last revised on 2019. Blood 02/23/2024 9:23 PM TOP STOP ATTACHER 02/23/2024 10:40 PM TOP STOP ATTACHER Fabiana Wilson MD LAB BLOOD ORDERABLES Final Result Performing Organization Address [facility] [place] [address] * (ABNORMAL) CBC without differential (02/23/2024 9:23 PM TOP STOP ATTACHER) WBC 8.5 3.8 - 9.9 K/cumm Hgb 10.1(L) 11.9 - 15.5 g/dL [facility] Hct 31.5(L) 35.6 - 45.5 % [facility] Plt 202 150 - 400 K/cumm [facility] MPV 9.9 9.1 - 12.3 fL [facility] RBC 2.99(L) 3.90 - 5.20 M/cumm [facility] MCV 105.4(H) 81.3 - 96.4 fL [facility] MCH 33.8(H) 27.1 - 33.3 pg [facility] MCHC 32.1(L) 32.3 - 35.7 g/dL [facility] RDW CV 13.3 11.1 - 14.9 % [facility] RDW SD 51.3(H) 35.7 - 48.1 fL [facility] NRBC abs 0.00 0.00 - 0.01 K/cumm [facility] Blood 02/23/2024 9:23 PM TOP STOP ATTACHER 02/23/2024 10:49 PM TOP STOP ATTACHER Fabiana Wilson MD LAB BLOOD ORDERABLES Final Result Performing Organization Address [facility]/ZIP Co de Phone Number [facility] Department [place] [address] * Type and screen (02/23/2024 9:23 PM TOP STOP ATTACHER) ABO Rh O Positive Jose Carlos, indirect Negative [facility] Blood 02/23/2024 9:23 PM TOP STOP ATTACHER 02/23/2024 11:06 PM TOP STOP ATTACHER Narrative [facility] - 02/23/2024 11:57 PM TOP STOP ATTACHER Has the patient had Daratumumab or Isatuximab in the past 6 months?->Unknown Fabiana Wilson MD LAB BLOOD BANK TEST ORDERAB LES Final Result [facility] [place] [address] * Phosphorus (02/23/2024 9:23 PM TOP STOP ATTACHER) Phosphorus, pl 4.4 2.3 - 4.5 mg/dL Blood 02/23/2024 9:23 PM TOP STOP ATTACHER 02/23/2024 10:49 PM TOP STOP ATTACHER Fabiana Wilson MD LAB BLOOD ORDERABLES Final Result Performing Organization Address [facility] Co de Phone Number [facility] [place] [address] * Magnesium (02/23/2024 9:23 PM TOP STOP ATTACHER) Pathologist [facility] Magnesium 2.1 1.4 - 2.5 mg/dL Blood 02/23/2024 9:23 PM TOP STOP ATTACHER 02/23/2024 10:49 PM TOP STOP ATTACHER Fabiana Wilson MD LAB BLOOD ORDERABLES Final Result Performing Organization Address [facility] de Phone Number [facility] [place] [address] * Hemoglobin A1c (02/23/2024 9:23 PM TOP STOP ATTACHER) [facility] Hgb A1C 5.2 4.0 - 5.6 % Estimated Average Glucose 103 mg/dL [facility] Comment: The ADA recommends reporting an estimated Average Glucose (eAG) with all Hemoglobin A1c results using the equation derived from a study of 507 normal and diabetic adults. ??Minority populations were underrepresented and children were not included. ?? (Diabetes Care 2020; 43(S1): S66-S76). ??The eAG is not equivalent to a fasting glucose. Blood 02/23/2024 9:23 PM TOP STOP ATTACHER 02/23/2024 10:53 PM TOP STOP ATTACHER Fabiana Wilson MD LAB BLOOD ORDERABLES Final Result Performing Organization Address [facility] [place] [address] * Lipid panel (02/23/2024 9:23 PM TOP STOP ATTACHER) Pathologist [facility] Cholesterol 103 30 - 199 mg/dL Comment: Interpretive Data Ages < or = 19 years ??Acceptable: ? <170 mg/dL ??Borderline high: ??170-199 mg/dL ??High: ? >or= 200 mg/dL Ages > or = 20 years ??Desirable: ?<200 mg/dL ??Borderline high: ??200-239 mg/dL ??High: ? >or= 240 mg/dL Literature References: 1. Expert Panel on Integrated Guidelines for Cardiovascular Health and Risk Reduction in Children and Adolescents. Pediatrics 2011;128:S213 2. NCEP Expert Panel. Circulation 2004;110:227 Current Interpretive Data was last revised on 2017. Triglycerides 71 <=149 mg/dL [facility] Comment: Interpretive Data Ages < or = 9 years ??Acceptable: ? <75 mg/dL ??Borderline high: ??75-99 mg/dL ??High: ? >or= 100 mg/dL Ages 10 to 20 years ??Acceptable: ? <90 mg/dL ??Borderline high: ??90-129 mg/dL ??High: ? >or= 130 mg/dL Ages > or = 20 years ??Desirable: ?<150 mg/dL ??Borderline high: ??150-199 mg/dL ??High: ? 200-499 mg/dL ?Very high: ?? >or= 499 mg/dL Literature References: 1. Expert Panel on Integrated Guidelines for Cardiovascular Health and Risk Reduction in Children and Adolescents. Pediatrics 2011;128:S213 2. NCEP Expert Panel. Circulation 2004;110:227 Current Interpretive Data was last revised on 2017. HDL 43 >=40 mg/dL [facility] Comment: Interpretive Data Ages < or = 19 years ??Acceptable: ? >45 mg/dL ??Borderline low: ?? 40-45 mg/dL ??Low: ? <40 mg/dL Ages > or = 20 years ??Desirable: ?>or= 60 mg/dL ??Low: ? <40 mg/dL Literature References: 1. Expert Panel on Integrated Guidelines for Cardiovascular Health and Risk Reduction in Children and Adolescents. Pediatrics 2011;128:S213 2. NCEP Expert Panel. Circulation 2004;110:227 Current Interpretive Data was last revised on 2017. LDL, calculated 45 <=129 mg/dL [facility] Comment: Interpretive Data Ages < or = 19 years ??Acceptable: ? <110 mg/dL ??Borderline high: ??110-129 mg/dL ??High: ?>or= 130 mg/dL Ages > or = 20 years ??Optimal: ? <100 mg/dL ??Near optimal: ?100-129 mg/dL ??Borderline high: ?? 130-159 mg/dL ??High: ?>160 mg/dL Calculated using the Osmany LDL-C estimating equation. This equation was implemented on 2023. Prior to this date LDL-C was estimated using the Friedewald equation. Literature References: 1. Expert Panel on Integrated Guidelines for Cardiovascular Health and Risk Reduction in Children and Adolescents. Pediatrics 2011;128:S213 2. NCEP Expert Panel. Circulation 2004;110:227 3. Osmany Dennison et al. SARA Cardiol. 2020 July 17;5(5):540-548. doi: 10.1001/[email or web address] Current Interpretive Data was last revised on 2023. Non-HDL Cholesterol 60 mg/dL [facility] Comment: Interpretive Data Ages < or = 19 years ??Acceptable: ?<120 mg/dL ??Borderline high: ??120-144 mg/dL ??High: ?>145 mg/dL Ages > or = 20 years ??When triglycerides are >200 mg/dL, Non-HDL cholesterol is a secondary target of ? therapy with treatment goals that are 30 mg/dL greater than the LDL cholesterol target. ? Literature References: 1. Expert Panel on Integrated Guidelines for Cardiovascular Health and Risk Reduction in Children and Adolescents. Pediatrics 2011;128:S213 2. NCEP Expert Panel. Circulation 2004;110:227 Current Interpretive Data was last revised on 2017. Chol/HDL ratio 2 [facility] Blood 02/23/2024 9:23 PM TOP STOP ATTACHER 02/23/2024 10:49 PM TOP STOP ATTACHER us Fabiana Wilson MD LAB BLOOD ORDERABLES Final Result [facility] Department [place] [address] * (ABNORMAL) Comprehensive metabolic panel (02/23/2024 9:23 PM TOP STOP ATTACHER) Sodium 139 135 - 145 mmol/L Potassium, pl 4.1 3.3 - 4.9 mmol/L [facility] Chloride 102 97 - 110 mmol/L [facility] CO2 28 22 - 32 mmol/L [facility] Anion gap 9 2 - 15 mmol/L [facility] BUN 18 6 - 25 mg/dL [facility] Creatinine 4.00(H) 0.60 - 1.10 mg/dL [facility] Glucose 86 70 - 199 mg/dL [facility] Comment: Interpretive Data Fasting glucose >/= 126 mg/dl is diagnostic for diabetes. ?? Fasting is defined as no caloric intake for at least 8 hours. Fasting glucose between 100 mg/dl to 125 mg/dl is diagnostic of prediabetes. In a patient with classic symptoms of hyperglycemia or hyperglycemic crisis, a random glucose >/= 200 mg/dl is diagnostic for diabetes. In the absence of unequivocal hyperglycemia, results should be confirmed by repeat testing. The classification and Diagnosis of Diabetes Diabetes Care 2021; 46: S19-S40. Current interpretive data was last revised 2022. Calcium 7.9(L) 8.5 - 10.3 mg/dL [facility] Bilirubin, total 0.3 0.1 - 1.2 mg/dL [facility] Protein, pl 5.7(L) 6.5 - 8.5 g/dL [facility] Albumin 3.1(L) 3.5 - 5.0 g/dL [facility] Alk phos 62 40 - 130 Units/L [facility] ALT 5(L) 7 - 45 Units/L [facility] Comment:Repeated and Verifie d AST 15 10 - 45 Units/L [facility] Blood 02/23/2024 9:23 PM TOP STOP ATTACHER 02/23/2024 10:49 PM TOP STOP ATTACHER Fabiana Wilson MD LAB BLOOD ORDERABLES Final Result [facility] Department [place] [address] * Respiratory pathogen panel Nasopharyngeal (02/23/2024 8:58 PM TOP STOP ATTACHER) Pathologist [facility] Influenza A RNA Not Detected Not Detected Influenza B RNA Not Detected Not Detected [facility] RSV RNA Not Detected Not Detected [facility] COVID-19 RNA Not Detected Not Detected [facility] Coronavirus 229E RNA Not Detected Not Detected [facility] Coronavirus HKU1 RNA Not Detected Not Detected [facility] Coronavirus NL63 RNA Not Detected Not Detected [facility] Coronavirus OC43 RNA Not Detected Not Detected [facility] Adenovirus DNA Not Detected Not Detected [facility] Metapneumovirus RNA Not Detected Not Detected [facility] Rhinovirus/Enterov irus RNA Not Detected Not Detected [facility] Parainfluenza 1 RNA Not Detected Not Detected [facility] Parainfluenza 2 RNA Not Detected Not Detected [facility] Parainfluenza 3 RNA Not Detected Not Detected [facility] Parainfluenza 4 RNA Not Detected Not Detected [facility] B. pertussis DNA Not Detected Not Detected [facility] B. parapertussis DNA Not Detected Not Detected [facility] C. pneumoniae DNA Not Detected Not Detected [facility] M. pneumoniae DNA Not Detected Not Detected [facility] Nasopharyngeal 02/23/2024 8: 58 PM TOP STOP ATTACHER 02/23/2024 10:57 PM TOP STOP ATTACHER Narrative [facility] - 02/24/2024 12:09 AM TOP STOP ATTACHER Is the Patient experiencing symptoms consistent with COVID?->No Surveillance testing for transplant patient?->No ??Interpretive Data The [employer] FilmArray Respiratory Panel (RP2.1) assay is a multiplexed real-time PCR based nucleic acid test capable of simultaneous qualitative detection and identification of multiple respiratory viral and bacterial nucleic acids, including SARS Coronavirus 2 (the causative agent of COVID-19). The following bacteria, viruses and virus subtypes can be identified using the FilmArray RP2.1 assay: Bordetella pertussis, Bordetella parapertussis, Chlamydia pneumoniae, Mycoplasma pneumoniae, Adenovirus, SARS Coronavirus 2, seasonal coronaviruses (Coronavirus HKU1, Coronavirus NL63, Coronavirus 229E, and Coronavirus OC43), Influenza A, Influenza A subtype H1, Influenza A subtype H3, Influenza A subtype 2009 H1, Influenza B, Metapneumovirus, Parainfluenza 1, Parainfluenza 2, Parainfluenza 3, Parainfluenza 4, RSV, Rhinovirus/Enterovirus. Due to the genetic similarity between human Rhinovirus and Enterovirus, the FilmArray RP2.1 assay cannot reliably differentiate them. Coronavirus OC43 may cross-react with some isolates of Coronavirus HKU1. ??A dual positive result may be due to cross-reactivity or may indicate a co-infection. The detection and identification of specific viral and bacterial nucleic acids from individuals exhibiting signs and symptoms of a respiratory infection aids in the diagnosis of respiratory infection if used in conjunction with other clinical and epidemiological information. ??The results of this test should not be used as the sole basis for diagnosis, treatment, or other management decisions. ??Negative results in the setting of a respiratory illness may be due to infection with pathogens that are not detected by this test. ??Positive results do not rule out infection/co-infection with other organisms. ??The agent(s) detected by the FilmArray RP2.1 may not be the definite cause of disease. ??Additional testing (lab, imaging, etc.) may be necessary when evaluating a patient with possible respiratory tract infection. The FilmArray RP2.1 assay has FDA clearance for testing of ANODISER swabs. ??The performance of additional specimen types has been assessed by the performing laboratory. ??The performance characteristics of this assay have been determined by [facility] Molecular Infectious Disease Laboratory. Current interpretive data was last revised on 21. Fabiana Wilson MD LAB MICROBIOLOGY - GENERAL ORDERABLES Final Result Performing Organization Address [facility] Co de Phone Number [facility] Department [place] [address] * Blood culture Blood (02/23/2024 8:58 PM TOP STOP ATTACHER) Report Final Report: No growth Blood 02/23/2024 8:58 PM TOP STOP ATTACHER 02/24/2024 12:25 AM TOP STOP ATTACHER Narrative [facility] - 02/28/2024 7:00 AM TOP STOP ATTACHER Second site Collection->Peripheral 1. ?Blood cultures are incubated for 4 days on a continuously monitored blood culture system. The first report of a negative culture is issued within 24 hours of receipt of the specimen in the laboratory. 2. ?Positive culture results are reported as soon as they are detected. 3. ?The most important factor for detection of microbes in the setting of bloodstream infection is the volume of blood submitted for culture. Failure to collect an optimal blood volume can result in false negative blood cultures. 4. ? For pediatric patients, the recommended blood volume to collect follows a weight based strategy. See the electronic test catalog for collection instructions. 5. ?For positive blood cultures, a rapid molecular test may be performed for organism identification using the vicente ePlex blood culture identification panel for gram positive (BCID-GP) and gram negative (BCID-GN) organisms. This nucleic acid amplification test detects microbial DNA in positive blood culture broth. This assay has been cleared by the [place] Food and Drug Administration and its performance characteristics have been verified by the [facility] Microbiology Laboratory. For questions about this culture, contact the Microbiology Laboratory at [phone]. Interpretive data was last revised on 24. Fabiana Wilson MD LAB MICROBIOLOGY - GENERAL ORDERABLES Final Result Performing Organization Address [facility] Co de Phone Number [facility] Department [place] [address] * Blood culture Blood (02/23/2024 8:58 PM TOP STOP ATTACHER) Report Final Report: No growth Blood 02/23/2024 8:58 PM TOP STOP ATTACHER 02/24/2024 12:25 AM TOP STOP ATTACHER Narrative [facility] - 02/28/2024 7:00 AM TOP STOP ATTACHER Collection->Peripheral 1. ?Blood cultures are incubated for 4 days on a continuously monitored blood culture system. The first report of a negative culture is issued within 24 hours of receipt of the specimen in the laboratory. 2. ?Positive culture results are reported as soon as they are detected. 3. ?The most important factor for detection of microbes in the setting of bloodstream infection is the volume of blood submitted for culture. Failure to collect an optimal blood volume can result in false negative blood cultures. 4. ? For pediatric patients, the recommended blood volume to collect follows a weight based strategy. See the electronic test catalog for collection instructions. 5. ?For positive blood cultures, a rapid molecular test may be performed for organism identification using the vic[employer] ePlex blood culture identification panel for gram positive (BCID-GP) and gram negative (BCID-GN) organisms. This nucleic acid amplification test detects microbial DNA in positive blood culture broth. This assay has been cleared by the [place] Food and Drug Administration and its performance characteristics have been verified by the [facility] Microbiology Laboratory. For questions about this culture, contact the Microbiology Laboratory at [phone]. Interpretive data was last revised on 24. Fabiana Wilson MD LAB MICROBIOLOGY - GENERAL ORDERABLES Final Result [facility] Department [place] [address] * ECG 12 lead (02/23/2024 8:29 PM TOP STOP ATTACHER) Ventricular Rate EKG/Min 65 BPM [facility] Atrial Rate 65 BPM [facility] AK-Interval (MSEC) 144 ms [facility] QRS-Interval (MSEC) 82 ms [facility] QT-Interval (MSEC) 480 ms [facility] QTc 499 ms [facility] P [place] 53 degrees [facility] R [place] -63 degrees [facility] T [place] 43 degrees [facility] Diagnosis Normal sinus rhythm Left axis deviation Inferior infarct , age undetermined Abnormal ECG No previous ECGs available Confirmed by ALFREDO HANNON M.D ([id number]) on 02/25/2024 5:17:23 PM [facility] 02/23/2024 8:29 PM TOP STOP ATTACHER 02/25/2024 5:17 PM TOP STOP ATTACHER us Fabiana Wilson MD ECG ORDERABLES Final Resul t [facility] * POCT glucose (02/23/2024 8:20 PM TOP STOP ATTACHER) Glucose, POC 93 70 - 199 mg/dL Blood 02/23/2024 8:20 PM TOP STOP ATTACHER 02/23/2024 8:20 PM TOP STOP ATTACHER us Fabiana Wilson MD LAB POCT ORDERABLES - DEVIC E Final Result [facility] Department [place] [address] * MRI Brain WO Contrast (02/23/2024 8:07 PM TOP STOP ATTACHER) Anatomical Region Laterality Modality Head and Neck N/A Magnetic Resonan ce 02/23/2024 8:19 PM TOP STOP ATTACHER Impressions 02/24/2024 8:32 AM TOP STOP ATTACHER 1. ??No acute infarct or convincing evidence of acute intracranial hemorrhage. Asymmetric bilateral basal ganglia and cerebellar dentate nuclei susceptibility artifact favored to represent mineralization. ??The asymmetric left basal ganglia susceptibility could represent chronic sequela of prior hemorrhage. ??Additionally, an outside head CT report from 12/19/2022 mentions unilateral left basal ganglia and thalamic calcification, further supporting chronicity. ??A short-term follow-up head CT in 24 hours could be obtained to ensure stability as clinically indicated. 2. ??Scattered chronic infarcts including right occipital, bilateral thalamic, and bilateral cerebellar lacunar infarcts, some of which have chronic blood products. ??Severe white matter disease likely chronic small vessel ischemic change. 3. Chronic hypertensive microangiopathy. The Critical results were discussed with Dr. Frost by Dr. Johnson on 02/23/2024 at 8:04 PM. Dictated by: Eliel Johnson M.D. The radiology attending physician has personally reviewed this study, and had reviewed and/or edited this written report and agrees with it. Electronically signed by: Jesu Barker MD Narrative 02/24/2024 8:32 AM TOP STOP ATTACHER EXAMINATION: Magnetic resonance imaging (MRI) of the brain and brainstem without contrast HISTORY: Right-sided weakness. ??Possible basal ganglia hemorrhage on CT. TECHNIQUE: Multiplanar multi-weighted MRI of the brain and brainstem was performed without intravenous contrast using the general brain protocol. COMPARISON: Same-day CTA FINDINGS: Diffusion weighted images reveal no hyperintensities to suggest acute cerebral infarction. ?? Diffuse susceptibility artifact involving the bilateral basal ganglia, thalami, and cerebellar dentate nuclei compatible with mineralization. ??Additional punctate foci of susceptibility indicating microhemorrhages are present in the bilateral cerebellum, right elvia, bilateral thalami. ??Subtle intrinsic T1 hyperintensity is present in the left basal ganglia/thalamus corresponding to the foci of susceptibility. ??No significant adjacent T2/FLAIR signal is present in the left basal ganglia. Severe periventricular white matter T2 FLAIR hyperintensity likely chronic small vessel ischemic change. ??Chronic right occipital infarct with associated susceptibility artifact indicating chronic blood products. ??Chronic bilateral cerebellar and thalamic lacunar infarcts. 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 The scalp and calvarium are normal. The superior sagittal sinus demonstrates normal venous flow. The corpus callosum is normal in shape and signal intensity. The pituitary and sella are normal. The paranasal sinuses are normal. The visualized portions of the mastoids are unremarkable. Lens replacements. Normal flow voids are demonstrated in the carotid arteries and basilar artery. Procedure Note Jesu Barker MD - 02/24/2024 EXAMINATION: Magnetic resonance imaging (MRI) of the brain and brainstem without contrast HISTORY: Right-sided weakness. Possible basal ganglia hemorrhage on CT. TECHNIQUE: Multiplanar multi-weighted MRI of the brain and brainstem was performed without intravenous contrast using the general brain protocol. COMPARISON: Same-day CTA FINDINGS: Diffusion weighted images reveal no hyperintensities to suggest acute cerebral infarction. Diffuse susceptibility artifact involving the bilateral basal ganglia, thalami, and cerebellar dentate nuclei compatible with mineralization. Additional punctate foci of susceptibility indicating microhemorrhages are present in the bilateral cerebellum, right elvia, bilateral thalami. Subtle intrinsic T1 hyperintensity is present in the left basal ganglia/thalamus corresponding to the foci of susceptibility. No significant adjacent T2/FLAIR signal is present in the left basal ganglia. Severe periventricular white matter T2 FLAIR hyperintensity likely chronic small vessel ischemic change. Chronic right occipital infarct with associated susceptibility artifact indicating chronic blood products. Chronic bilateral cerebellar and thalamic lacunar infarcts. 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 The scalp and calvarium are normal. The superior sagittal sinus demonstrates normal venous flow. The corpus callosum is normal in shape and signal intensity. The pituitary and sella are normal. The paranasal sinuses are normal. The visualized portions of the mastoids are unremarkable. Lens replacements. Normal flow voids are demonstrated in the carotid arteries and basilar artery. IMPRESSION: 1. No acute infarct or convincing evidence of acute intracranial hemorrhage. Asymmetric bilateral basal ganglia and cerebellar dentate nuclei susceptibility artifact favored to represent mineralization. The asymmetric left basal ganglia susceptibility could represent chronic sequela of prior hemorrhage. Additionally, an outside head CT report from 12/19/2022 mentions unilateral left basal ganglia and thalamic calcification, further supporting chronicity. A short-term follow-up head CT in 24 hours could be obtained to ensure stability as clinically indicated. 2. Scattered chronic infarcts including right occipital, bilateral thalamic, and bilateral cerebellar lacunar infarcts, some of which have chronic blood products. Severe white matter disease likely chronic small vessel ischemic change. 3. Chronic hypertensive microangiopathy. The Critical results were discussed with Dr. Frost by Dr. Johnson on 02/23/2024 at 8:04 PM. Dictated by: Eliel Johnson M.D. The radiology attending physician has personally reviewed this study, and had reviewed and/or edited this written report and agrees with it. Electronically signed by: Jesu Barker MD us Nolvia Georges MD IMG MRI PROCEDURES Final R esult * XR Chest 1 View (02/23/2024 7:36 PM TOP STOP ATTACHER) Anatomical Region Laterality Modality Body, Chest N/A Digital Radiogra phy 02/23/2024 8:30 PM TOP STOP ATTACHER Impressions 02/23/2024 8:30 PM TOP STOP ATTACHER Comparison to 02/27/2023. Loop recorder noted. ??Left-sided central venous catheter with tip over the superior cavoatrial junction. ??Heart size is normal. Prominent mediastinal fat is again seen. ??Curvilinear opacities in the right midlung in the right lung base, likely scarring/atelectasis. ??No effusion or pneumothorax. Electronically signed by: Chacho Martini M.D. Narrative 02/23/2024 8:30 PM TOP STOP ATTACHER EXAMINATION: 1 view chest radiograph Procedure Note Chacho Martini MD - 02/23/2024 EXAMINATION: 1 view chest radiograph IMPRESSION: Comparison to 02/27/2023. Loop recorder noted. Left-sided central venous catheter with tip over the superior cavoatrial junction. Heart size is normal. Prominent mediastinal fat is again seen. Curvilinear opacities in the right midlung in the right lung base, likely scarring/atelectasis. No effusion or pneumothorax. Electronically signed by: Chacho Martini M.D. Anay Lee MD IMG XR PROCEDURES Final Result * (ABNORMAL) ECG 12-LEAD (02/23/2024 7:00 PM TOP STOP ATTACHER) Narrative [facility] [place] - 02/23/2024 7:00 PM TOP STOP ATTACHER Fabiana Wilson MD ? 02/23/2024 ??7:01 PM ECG 12 lead Date/Time: 02/23/2024 7:00 PM Performed by: Fabiana Wilson MD Authorized by: Fabiana Wilson MD ?? Rate: ??ECG rate: ??72 ??ECG rate assessment: normal ?? Rhythm: ??Rhythm: sinus rhythm ?? Ectopy: ??Ectopy: none ?? QRS: ??QRS axis: ??Left ??QRS intervals: ??Normal Conduction: ??Conduction: normal ?? ST segments: ??ST segments: ??Non-specific T waves: ??T waves: non-specific ?? Previous ECG: ??Previous ECG: ??Unavailable Interpretation: ??Interpretation: abnormal ?? Recommended Follow-up: ??Recommended follow up: further workup in the ED ?? Procedure Note Fabiana Wilson MD - 02/23/2024 7:00 PM CST Procedure ECG 12 lead Date/Time: 02/23/2024 7:00 PM Performed by: Fabiana Wilson MD Authorized by: Fabiana Wilson MD Rate: ECG rate: 72 ECG rate assessment: normal Rhythm: Rhythm: sinus rhythm Ectopy: Ectopy: none QRS: QRS axis: Left QRS intervals: Normal Conduction: Conduction: normal ST segments: ST segments: Non-specific T waves: T waves: non-specific Previous ECG: Previous ECG: Unavailable Interpretation: Interpretation: abnormal Recommended Follow-up: Recommended follow up: further workup in the ED Fabiana Wilson MD 02/23/24 1901 Fabiana Wilson MD ECG ORDERABLES Final Resul t MUSE [facility] * [place] CRITICAL CARE ILL/INJURED PATIENT INIT 30-74 MIN (02/23/2024 6:58 PM TOP STOP ATTACHER) Narrative Fabiana Wilson MD - 02/23/2024 6:58 PM TOP STOP ATTACHER Fabiana Wilson MD ? 02/26/2024 ??8:32 PM Critical Care Performed by: Fabiana Wilson MD Authorized by: Fabiana Wilson MD ?? Critical care provider statement: As reflected in the history, physical exam, orders, notes, and/or MDM, I was personally present while the patient was critically ill and provided critical care services for 35 minutes, excluding time involved in separately billable procedures. ??Critical care was necessary to treat or prevent imminent or life-threatening deterioration of the following condition(s): ?? acute cerebrovascular accident (CVA) and severe neurologic condition ??Critical care was time spent by me providing the following: ? continuous telemetry, continuous pulse oximetry, interpretation of bedside monitors, imaging, and arterial/venous lab draws, serial bedside patient exams and serial laboratory checks ?? frequent neurologic exams, decision regarding acute lytic therapy, initiation of stroke management and advanced imaging MRI ?? I provided emergent necessary critical care medicine services to this patient. I ordered and reviewed test results and/or imaging studies. I spent time discussing the management of this critically ill patient with consultants and the medical staff. I spent time discussing the management and therapeutic options for this critically ill patient with the patient themselves or with the appropriate designated surrogate decision-maker. I spent time documenting in the medical record. I admitted this patient to a continuous cardiac monitored bed. us Fabiana Wilson MD IN CLINIC/BEDSIDE ORDERABLE S Final Result * Troponin I high-sensitivity series (baseline, 2hr, 4hr, 6hr) (02/23/2024 6:40 PM TOP STOP ATTACHER) Trop I hs 6 <=17 ng/L Comment: Code Blue Specimen Interpretive Data For further hscTnI resources including the diagnostic algorithm and an aid in interpretation, copy and paste this link: https://bjhlab.testcatalog.org/show/[email or web address] Current Interpretive Data last revised 2019. Blood 02/23/2024 6:40 PM TOP STOP ATTACHER 02/23/2024 6:50 PM TOP STOP ATTACHER us Fabiana Wilson MD LAB BLOOD ORDERABLES Final Result Performing Organization Address City/State/ZIP Co sd Phone Number [facility] Department [place] [address] * (ABNORMAL) eGFR (02/23/2024 6:40 PM TOP STOP ATTACHER) Pathologist [facility] eGFR 13(L) >=60 mL/min/1. 73 m2 Comment: Interpretive Data Reference Interval Normal ?>/= 90 mL/min/1.73m2 Mildly decreased* ? 60 - 89 mL/min/1.73m2 Mildly to moderately decreased ?45 - 59 mL/min/1.73m2 Moderately to severely decreased ??30 - 44 mL/min/1.73m2 Severely decreased ?15 - 29 mL/min/1.73m2 Kidney Failure ?< 15 ??mL/min/1.73m2 *Relative to young adult level Estimated glomerular filtration rate is determined by the 2020 CKD-EPI equation recommended by the National Kidney [employer] (A Unifying Approach to GFR Estimation: Recommendations of the NKF-ASK Task Force on Reassessing the Inclusion of Race in Diagnosing Kidney Disease, JASN 2020). The CKD-EPI equation should not be used for patients with unstable renal function and has not been validated in children and those over 70. Current interpretive data was last reviewed 2021. Blood 02/23/2024 6:40 PM TOP STOP ATTACHER 02/23/2024 6:50 PM TOP STOP ATTACHER us Fabiana Wilson MD LAB BLOOD ORDERABLES Final Result [facility] Department [place] [address] * (ABNORMAL) Differential, auto (02/23/2024 6:40 PM TOP STOP ATTACHER) Neutrophil abs 6.6(H) 1.5 - 6.5 K/cumm Imm gran abs 0.1 0.0 - 0.1 K/cumm [facility] Lymphocyte abs 1.0 0.8 - 3.3 K/cumm [facility] Monocyte abs 1.0(H) 0.2 - 0.8 K/cumm [facility] Eosinophil abs 0.2 0.0 - 0.5 K/cumm [facility] Basophil abs 0.0 0.0 - 0.1 K/cumm [facility] Neutrophil pct 74.4 % [facility] Comment: Interpretive Data Percent cell count reference ranges are not reported, since discordance with absolute values may lead to misinterpretation of CBC data. Current Interpretive Data was last revised on 2017. Imm gran pct 0.8 % [facility] Comment: Interpretive Data Percent cell count reference ranges are not reported, since discordance with absolute values may lead to misinterpretation of CBC data. Current Interpretive Data was last revised on 2017. Lymphocyte pct 11.3 % [facility] Comment: Interpretive Data Percent cell count reference ranges are not reported, since discordance with absolute values may lead to misinterpretation of CBC data. Current Interpretive Data was last revised on 2017. Monocyte pct 10.7 % [facility] Comment: Interpretive Data Percent cell count reference ranges are not reported, since discordance with absolute values may lead to misinterpretation of CBC data. Current Interpretive Data was last revised on 2017. Eosinophil pct 2.3 % [facility] Comment: Interpretive Data Percent cell count reference ranges are not reported, since discordance with absolute values may lead to misinterpretation of CBC data. Current Interpretive Data was last revised on 2017. Basophil pct 0.5 % [facility] Comment: Interpretive Data Percent cell count reference ranges are not reported, since discordance with absolute values may lead to misinterpretation of CBC data. Current Interpretive Data was last revised on 2017. Blood 02/23/2024 6:40 PM TOP STOP ATTACHER 02/23/2024 6:50 PM TOP STOP ATTACHER Fabiana Wilson MD LAB BLOOD ORDERABLES Final Result [facility] Department [place] [address] * (ABNORMAL) CBC with auto differential (02/23/2024 6:40 PM TOP STOP ATTACHER) WBC 8.9 3.8 - 9.9 K/cumm Comment:Code Blue Specimen Hgb 9.7(L) 11.9 - 15.5 g/dL [facility] Hct 30.5(L) 35.6 - 45.5 % [facility] Plt 180 150 - 400 K/cumm [facility] MPV 9.7 9.1 - 12.3 fL [facility] RBC 2.86(L) 3.90 - 5.20 M/cumm [facility] MCV 106.6(H) 81.3 - 96.4 fL [facility] MCH 33.9(H) 27.1 - 33.3 pg [facility] MCHC 31.8(L) 32.3 - 35.7 g/dL [facility] RDW CV 13.3 11.1 - 14.9 % [facility] RDW SD 52.2(H) 35.7 - 48.1 fL [facility] NRBC abs 0.00 0.00 - 0.01 K/cumm [facility] Blood (Blood, Venous) 02/23/2024 6:40 PM TOP STOP ATTACHER 02/23/2024 6:50 PM TOP STOP ATTACHER Narrative [facility] - 02/23/2024 6:55 PM TOP STOP ATTACHER Potential Stroke Patient Fabiana Wilson MD LAB BLOOD ORDERABLES Final Result [facility] Department [place] [address] * (ABNORMAL) aPTT (02/23/2024 6:40 PM TOP STOP ATTACHER) aPTT 24(L) 28 - 38 sec Comment: Code Blue Specimen Interpretive Data Heparin therapeutic range: 66.0 - 100.0 seconds. Range based on correlation with therapeutic heparin activity range of 0.3 - 0.7 Units/mL. Current interpretive data was last revised on 2022. Blood (Blood, Venous) 02/23/2024 6:40 PM TOP STOP ATTACHER 02/23/2024 6:50 PM TOP STOP ATTACHER Narrative [facility] - 02/23/2024 7:08 PM TOP STOP ATTACHER Potential stroke patient. Fabiana Wilson MD LAB BLOOD ORDERABLES Final Result [facility] Department [place] [address] * Magnesium (02/23/2024 6:40 PM TOP STOP ATTACHER) Pathologist [facility] Magnesium 2.0 1.4 - 2.5 mg/dL Blood 02/23/2024 6:40 PM TOP STOP ATTACHER 02/23/2024 6:50 PM TOP STOP ATTACHER Radha Quintanilla MD LAB BLOOD ORDERABLES Fi nal Result [facility] Department [place] [address] * (ABNORMAL) Comprehensive metabolic panel (02/23/2024 6:40 PM TOP STOP ATTACHER) Pathologist [facility] Sodium 140 135 - 145 mmol/L Comment:Code Blue Specimen Potassium, pl 3.5 3.3 - 4.9 mmol/L [facility] Comment:Code Blue Specimen Chloride 103 97 - 110 mmol/L [facility] Comment:Code Blue Specimen CO2 27 22 - 32 mmol/L [facility] Comment:Code Blue Specimen Anion gap 10 2 - 15 mmol/L [facility] Comment:Code Blue Specimen BUN 16 6 - 25 mg/dL [facility] Comment:Code Blue Specimen Creatinine 3.65(H) 0.60 - 1.10 mg/dL [facility] Comment:Code Blue Specimen Glucose 93 70 - 199 mg/dL [facility] Comment: Code Blue Specimen Interpretive Data Fasting glucose >/= 126 mg/dl is diagnostic for diabetes. ?? Fasting is defined as no caloric intake for at least 8 hours. Fasting glucose between 100 mg/dl to 125 mg/dl is diagnostic of prediabetes. In a patient with classic symptoms of hyperglycemia or hyperglycemic crisis, a random glucose >/= 200 mg/dl is diagnostic for diabetes. In the absence of unequivocal hyperglycemia, results should be confirmed by repeat testing. The classification and Diagnosis of Diabetes Diabetes Care 2021; 46: S19-S40. Current interpretive data was last revised 2022. Calcium 7.5(L) 8.5 - 10.3 mg/dL [facility] Comment:Code Blue Specimen Bilirubin, total 0.2 0.1 - 1.2 mg/dL [facility] Comment:Code Blue Specimen Protein, pl 5.1(L) 6.5 - 8.5 g/dL [facility] Comment:Code Blue Specimen Albumin 2.9(L) 3.5 - 5.0 g/dL [facility] Comment:Code Blue Specimen Alk phos 53 40 - 130 Units/L [facility] Comment:Code Blue Specimen ALT <5(L) 7 - 45 Units/L [facility] Comment:Code Blue Specimen AST 12 10 - 45 Units/L [facility] Comment:Code Blue Specimen Blood (Blood, Venous) 02/23/2024 6:40 PM TOP STOP ATTACHER 02/23/2024 6:50 PM TOP STOP ATTACHER Narrative [facility] - 02/23/2024 7:22 PM TOP STOP ATTACHER Potential Stroke Patient Fabiana Wilson MD LAB BLOOD ORDERABLES Final Result [facility] Department [place] [address] * CTA Stroke Head Neck W WO Contrast (02/23/2024 6:35 PM TOP STOP ATTACHER) Anatomical Region Laterality Modality Head and Neck N/A Computed Tomogra phy 02/23/2024 7:06 PM TOP STOP ATTACHER Impressions 02/23/2024 7:15 PM TOP STOP ATTACHER 1. ??Asymmetric calcifications of the left deep oliveira structures, limiting evaluation for underlying hemorrhage. 2. ??Development of venous anomaly in the left deep oliveira structures. There may also be an adjacent cavernoma associated with the developmental venous anomaly but that would be better assessed with a MR. 3. No large vessel occlusion or high-grade stenosis The Critical results were discussed with Dr. Vo (Stroke MD). by Dr. Aldo Diaz MD on 02/23/2024 at 7:00 PM. Dictated by: Aldo Diaz MD The radiology attending physician has personally reviewed this study, and had reviewed and/or edited this written report and agrees with it. Electronically signed by: Taylor Lundy M.D. Narrative 02/23/2024 7:15 PM TOP STOP ATTACHER EXAMINATION: 1. Computed tomography angiography (CTA) of the head without and with contrast 2. Computed tomography angiography (CTA) of the neck with contrast HISTORY: Right-sided weakness, facial droop. TECHNIQUE: CT of the head was performed with images acquired from skull base to vertex without intravenous contrast. Computed tomographic angiography was then obtained from the aortic arch to the vertex following the uneventful administration of intravenous contrast. 3D images were generated on a dedicated workstation. Contrast information: 80 mL Optiray-350 COMPARISON: No prior FINDINGS: HEAD CT FINDINGS: Hyperdensities in the left basal ganglia and pulvinar are are favored represent asymmetric deep oliveira matter calcifications, however a component of superimposed intraparenchymal hemorrhage cannot be excluded. There is wallerian degeneration of the left corticospinal tract. There is no vascular hyperdensity of the M1 segments or basilar artery. Extensive periventricular white matter hypodensities are likely secondary to small vessel ischemic changes. There are no lacunar infarcts. Cerebral volume is typical for age. Ventricles are of normal size and morphology. There is no mass effect or midline shift. ANGIOGRAPHIC FINDINGS: The visualized aortic arch appears normal with normal configuration of the great vessels. There is no significant stenosis of the origins of the great vessels. There is no geographic area of vascular paucity in the brain. 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 L ICA terminus: no occlusion or significant stenosis L M1: no occlusion or significant stenosis L M2 branches: no occlusion or significant stenosis L A2: no occlusion or significant stenosis Right anterior circulation: R CCA: The proximal right common carotid artery cannot be evaluated due to streak artifact from the adjacent contrast bolus. R carotid bifurcation: no occlusion or significant stenosis R ICA proximal: no occlusion or significant stenosis R ICA distal: no occlusion or significant stenosis R ICA terminus: no occlusion or significant stenosis R M1: no occlusion or significant stenosis R M2 branches: no occlusion or significant stenosis R A2: no occlusion or significant stenosis Posterior circulation: L Vertebral Artery: no occlusion or significant stenosis R Vertebral Artery: no occlusion or significant stenosis Basilar Artery: no occlusion or significant stenosis L MANAGER ECONOMIC: origin of left MANAGER ECONOMIC. R MANAGER ECONOMIC: no occlusion or significant stenosis There is a developmental venous anomaly in the left deep oliveira structures in the region of calcification. There is no suspicious cervical lymphadenopathy. Multilevel spondylosis of the cervical spine, with anterolisthesis of C2 on C3, likely degenerative in nature. ??There is stenosis of the cervical spine extending from C3 to C7. Views of the lung apices demonstrate consolidation in the right upper and lower lobes, which may be secondary to aspiration related changes. ??There is apical pleural parenchymal scarring. Emphysematous changes are also noted. Procedure Note VoTaylor MD - 02/23/2024 EXAMINATION: 1. Computed tomography angiography (CTA) of the head without and with contrast 2. Computed tomography angiography (CTA) of the neck with contrast HISTORY: Right-sided weakness, facial droop. TECHNIQUE: CT of the head was performed with images acquired from skull base to vertex without intravenous contrast. Computed tomographic angiography was then obtained from the aortic arch to the vertex following the uneventful administration of intravenous contrast. 3D images were generated on a dedicated workstation. Contrast information: 80 mL Optiray-350 COMPARISON: No prior FINDINGS: HEAD CT FINDINGS: Hyperdensities in the left basal ganglia and pulvinar are are favored represent asymmetric deep oliveira matter calcifications, however a component of superimposed intraparenchymal hemorrhage cannot be excluded. There is wallerian degeneration of the left corticospinal tract. There is no vascular hyperdensity of the M1 segments or basilar artery. Extensive periventricular white matter hypodensities are likely secondary to small vessel ischemic changes. There are no lacunar infarcts. Cerebral volume is typical for age. Ventricles are of normal size and morphology. There is no mass effect or midline shift. ANGIOGRAPHIC FINDINGS: The visualized aortic arch appears normal with normal configuration of the great vessels. There is no significant stenosis of the origins of the great vessels. There is no geographic area of vascular paucity in the brain. 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 L ICA terminus: no occlusion or significant stenosis L M1: no occlusion or significant stenosis L M2 branches: no occlusion or significant stenosis L A2: no occlusion or significant stenosis Right anterior circulation: R CCA: The proximal right common carotid artery cannot be evaluated due to streak artifact from the adjacent contrast bolus. R carotid bifurcation: no occlusion or significant stenosis R ICA proximal: no occlusion or significant stenosis R ICA distal: no occlusion or significant stenosis R ICA terminus: no occlusion or significant stenosis R M1: no occlusion or significant stenosis R M2 branches: no occlusion or significant stenosis R A2: no occlusion or significant stenosis Posterior circulation: L Vertebral Artery: no occlusion or significant stenosis R Vertebral Artery: no occlusion or significant stenosis Basilar Artery: no occlusion or significant stenosis L MANAGER ECONOMIC: origin of left MANAGER ECONOMIC. R MANAGER ECONOMIC: no occlusion or significant stenosis There is a developmental venous anomaly in the left deep oliveira structures in the region of calcification. There is no suspicious cervical lymphadenopathy. Multilevel spondylosis of the cervical spine, with anterolisthesis of C2 on C3, likely degenerative in nature. There is stenosis of the cervical spine extending from C3 to C7. Views of the lung apices demonstrate consolidation in the right upper and lower lobes, which may be secondary to aspiration related changes. There is apical pleural parenchymal scarring. Emphysematous changes are also noted. IMPRESSION: 1. Asymmetric calcifications of the left deep oliveira structures, limiting evaluation for underlying hemorrhage. 2. Development of venous anomaly in the left deep oliveira structures. There may also be an adjacent cavernoma associated with the developmental venous anomaly but that would be better assessed with a MR. 3. No large vessel occlusion or high-grade stenosis The Critical results were discussed with Dr. Vo (Stroke MD). by Dr. Aldo Diaz MD on 02/23/2024 at 7:00 PM. Dictated by: Aldo Diaz MD The radiology attending physician has personally reviewed this study, and had reviewed and/or edited this written report and agrees with it. Electronically signed by: Taylor Lundy M.D. us Fabiana Wilson MD IMG CT PROCEDURES Final Res ult * POCT prothrombin time, whole blood (02/23/2024 6:22 PM TOP STOP ATTACHER) [facility] PT, POC 12.3 10.6 - 13.5 sec INR, bld, POC 1.0 0.9 - 1.2 [facility] Blood 02/23/2024 6:22 PM TOP STOP ATTACHER 02/23/2024 6:22 PM TOP STOP ATTACHER Fabiana Wilson MD LAB POCT ORDERABLES - DEVIC E Final Result [facility] Department [place] [address] * POCT glucose (02/23/2024 6:21 PM TOP STOP ATTACHER) [facility] Signature Glucose, POC 105 70 - 199 mg/dL Blood 02/23/2024 6:21 PM TOP STOP ATTACHER 02/23/2024 6:21 PM TOP STOP ATTACHER Fabiana Wilson MD LAB POCT ORDERABLES - DEVIC E Final Result Performing Organization Address [facility] de Phone Number [facility] Department [place] [address] from Last 3 Months Insurance MEDICARE [facility] Address: [address] [phone] MEDICARE Advance Directives For more information, please contact: [phone] Documents on File Type Date Recorded Patient Recreation Activities Coordinator Expl anation ADVANCE DIRECTIVE 03/02/2023 11:[address] - Phys Order for PT Preferences * Full Code (Latest Code Status on File) Date Activated Date Inactivated Comments 03/05/2024 9:12 AM 03/05/2024 4:22 PM * Full Code Date Activated Date Inactivated Comments 02/23/2024 8:58 PM 02/29/2024 8:42 PM * Full Code Date Activated Date Inactivated Comments 02/28/2023 1:53 AM 03/01/2023 7:37 PM Care Teams [place] Artist Relationship Specialty Start Date End Date Jasson Cueva MD [address] [place] [id number] PCP - General Family Medicine 02/27/24
--- OUTSIDE RECORDS SUMMARY | 2024-03-19 19:03 | XMS_ITS | Referral Summary ---
Author Organization [facility] al Address [address] [place] [address] Care Team Providers Care Talent Recruiter Name Role Phone Jasson Cueva MD Primary Care Provider Encounters Date Type Department Care Team Description 03/05/2024 12:23 PM DRILL RUNNER HELPER - 03/05/2024 11:59 PM DRILL RUNNER HELPER Hospital Encounter [facility]BULANCE BILLING [address] [place] [address] Discharge Disposition: Discharge to home or self care 03/05/2024 4:56 AM DRILL RUNNER HELPER - 03/05/2024 12:22 PM DRILL RUNNER HELPER Emergency [facility] Emergency Department [address] [place] [address] Layton Sheridan MD Fox, Mauricio Alejo MD Complication associated with dialysis catheter (Primary Dx); ESRD (end stage renal disease) on dialysis (HCC) Discharge Disposition: Discharge to home or self care 03/04/2024 9:40 AM DRILL RUNNER HELPER - 03/04/2024 11:59 PM DRILL RUNNER HELPER Hospital Encounter [facility] [address] [place] [address] Discharge Disposition: Discharge to home or self care 03/04/2024 9:38 AM DRILL RUNNER HELPER - 03/04/2024 11:59 PM DRILL RUNNER HELPER Hospital Encounter [facility] [address] [place] [address] Discharge Disposition: Discharge to home or self care 03/04/2024 9:22 AM DRILL RUNNER HELPER - 03/04/2024 11:59 PM DRILL RUNNER HELPER Hospital Encounter [facility]) [address] [place] [address] Discharge Disposition: Discharge to home or self care 03/04/2024 9:08 AM DRILL RUNNER HELPER - 03/04/2024 11:59 PM DRILL RUNNER HELPER Hospital Encounter [facility] [address] [place] [address] Discharge Disposition: Discharge to home or self care 03/04/2024 9:05 AM DRILL RUNNER HELPER - 03/04/2024 11:59 PM DRILL RUNNER HELPER Hospital Encounter [facility] [address] [place] [address] Discharge Disposition: Discharge to home or self care 03/04/2024 8:23 AM DRILL RUNNER HELPER - 03/04/2024 11:59 PM DRILL RUNNER HELPER Hospital Encounter [facility] [address] [place] [address] Discharge Disposition: Discharge to home or self care 03/04/2024 8:21 AM DRILL RUNNER HELPER - 03/04/2024 11:59 PM DRILL RUNNER HELPER Hospital Encounter [facility] [address] [place] [address] Discharge Disposition: Discharge to home or self care 03/04/2024 8:07 AM DRILL RUNNER HELPER - 03/04/2024 11:59 PM DRILL RUNNER HELPER Hospital Encounter [facility] [address] [place] [address] Discharge Disposition: Discharge to home or self care 03/04/2024 7:57 AM DRILL RUNNER HELPER - 03/04/2024 11:59 PM DRILL RUNNER HELPER Hospital Encounter [facility] [address] [place] [address] Discharge Disposition: Discharge to home or self care 03/04/2024 7:54 AM DRILL RUNNER HELPER - 03/04/2024 11:59 PM DRILL RUNNER HELPER Hospital Encounter [facility] [address] [place] [address] Discharge Disposition: Discharge to home or self care 02/29/2024 Telephone [facility] Scheduling [address] [place] [address] PayneAguedaa 02/23/2024 6:15 PM DRILL RUNNER HELPER - 02/29/2024 4:37 PM DRILL RUNNER HELPER Hospital Encounter [facility] [address] [facility] [place] [phone] Fabiana Wilson MD Bucelli, Joe Gamino MD PhD Stroke-like symptoms (Primary Dx); Intracranial hemorrhage (HCC); Hypotension, unspecified hypotension type; Cerebral cavernoma; Developmental venous anomaly Discharge Disposition: Discharge to an IP Rehab facility 02/26/2024 Telephone [facility] General Neurology [address] [facility] Advanced Medicine 6th [place] [address] [place] [address] Deidra Monique RN from Last 3 Months Allergies No known active allergies Medications aspirin [...] (5 mg total) by mouth daily 02/29/20 Discontinu ed(Stop Taking at Discharge) furosemide (LASIX) 20 mg tabletIndicatio ns:Edema Take 1 tablet (20 mg total) by mouth every other day 02/29/20 Discontinu ed(Stop Taking at Discharge) metoprolol XL (TOPROL-XL) 25 mg extended release tablet Take 1 tablet (25 mg total) by mouth daily 02/29/20 Discontinu ed(Stop Taking at Discharge) lidocaine (LIDODERM) 5 % Place 1 patch on the skin daily Remove & discard patch within 12 hours or as directed by MD. 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 ([facility]) 02/28/2023 Primary hypertension 02/28/2023 ESRD (end stage renal disease) on dialysis 02/28 Immunizations Name Administration Dates Next Due COVID-19 mRNA (WorkSnug) 0.3 m L (30 mcg) vaccine (12 years and up) 12/27/2023 Social History Tobacco Use Types Packs/Day Years Used Date Smoking Tobacco: Former Cigarettes Tobacco Cessation:Counseling Given: Not Answered [facility] Utilities Answer Date Recorded In the past 12 months has th e electric, gas, oil, or water company threatened to shut off services in your [...] attend chur ch or islam services? Never 02/28/2023 Do you belong to any clubs o r organizations such as christianity groups, unions, fraternal or athletic groups, or [...] in a senior care (including now)? No 02/28/2023 Personal Safety Answer Date Recorded Have you ever been in or are you currently in a harmful physical or emotional relationship or is someone making you feel afraid or unsafe? Denies 03/05/2024 Comments Unknown Sex and Gender Information Value Date Recorded Sex Assigned at Not on file Legal Sex Female 7:00 PM DRILL RUNNER HELPER Gender Identity Not on file Sexual Orientation Not on file Last Filed Vital Signs Vital Sign Reading Time Taken Comments Blood Pressure 142/77 03/05/2024 12:00 PM DRILL RUNNER HELPER Pulse 71 03/05/2024 12:00 PM DRILL RUNNER HELPER Temperature 36.2 ??C (97.1 ??F) 03/05/2024 1:36 AM CS T Respiratory Rate 16 03/05/2024 9:05 AM DRILL RUNNER HELPER Oxygen Saturation 92% 03/05/2024 12: 00 PM DRILL RUNNER HELPER Inhaled Oxygen Concentration - - Weight 74.7 kg (164 lb 10.9 oz) 03/04/2024 6:46 PM DRILL RUNNER HELPER Height 170.2 cm (5' 7 ) 03/04/2024 6:46 PM DRILL RUNNER HELPER Body Mass Index 25.79 03/04/2024 6:46 PM DRILL RUNNER HELPER Plan of Treatment Not on file Medical Devices Implanted Type Area Sewing Machine Adjuster Device Identifier Shelf Expiration Date Model / Serial / Lot Ferevo Kit Cath Adult 32cm 15.5fr Durathane Duraflow Embosafe Basic [id number] - [id number] Implanted:Qty: 1 on 03/05/2024 by Latrell Renee MD PhD at [facility] Left: Chest Wall Ferevo 11/16/2025 [id number] / / [id number] Procedures Procedure Name Priority Date/Time Associated Diagnosis Comments EXCHANGE TUNNELED LINE ED 03/05/2024 10:02 AM DRILL RUNNER HELPER EGFR STAT 03/05/2024 7:37 AM DRILL RUNNER HELPER DIFFERENTIAL AUTO STAT 03/05/2024 7:3 7 AM DRILL RUNNER HELPER COMPREHENSIVE METABOLIC PANEL STAT 03/05/2024 7:37 AM DRILL RUNNER HELPER CBC WITH AUTO DIFFERENTIAL STAT 03/05/2024 7:37 AM DRILL RUNNER HELPER ECG 12-LEAD Routine 03/04/2024 10:54 PM DRILL RUNNER HELPER NEURO MR OUTSIDE REFERENCE Routine 03/04/2024 9:40 AM DRILL RUNNER HELPER US TRANSFER OF OUTSIDE FILMS Routine 03/04/2024 9:38 AM DRILL RUNNER HELPER NEURO CT OUTSIDE REFERENCE Routine 03/04/2024 9:22 AM DRILL RUNNER HELPER NEURO MR OUTSIDE REFERENCE Routine 03/04/2024 9:08 AM DRILL RUNNER HELPER NEURO CT OUTSIDE REFERENCE Routine 03/04/2024 9:05 AM DRILL RUNNER HELPER NEURO CT OUTSIDE REFERENCE Routine 03/04/2024 8:23 AM DRILL RUNNER HELPER NEURO MR OUTSIDE REFERENCE Routine 03/04/2024 8:21 AM DRILL RUNNER HELPER NEURO CT OUTSIDE REFERENCE Routine 03/04/2024 8:07 AM DRILL RUNNER HELPER NEURO CT OUTSIDE REFERENCE Routine 03/04/2024 7:57 AM DRILL RUNNER HELPER NEURO CT OUTSIDE REFERENCE Routine 03/04/2024 7:54 AM DRILL RUNNER HELPER EGFR Routine 02/28/2024 8:13 PM DRILL RUNNER HELPER BASIC METABOLIC PANEL Routine 02/28/2024 8:13 PM DRILL RUNNER HELPER CBC WITHOUT DIFFERENTIAL Routine 02/28/2024 8:13 PM DRILL RUNNER HELPER HEMODIALYSIS Routine 02/28/2024 1:58 PM DRILL RUNNER HELPER EGFR Routine 02/27/2024 6:38 PM DRILL RUNNER HELPER BASIC METABOLIC PANEL Routine 02/27/2024 6:38 PM DRILL RUNNER HELPER CBC WITHOUT DIFFERENTIAL Routine 02/27/2024 6:38 PM DRILL RUNNER HELPER EGFR Routine 02/26/2024 10:00 PM DRILL RUNNER HELPER BASIC METABOLIC PANEL Routine 02/26/2024 10:00 PM DRILL RUNNER HELPER CBC WITHOUT DIFFERENTIAL Routine 02/26/2024 10:00 PM DRILL RUNNER HELPER HEPATITIS B SURFACE ANTIGEN STAT 02/26/2024 2:36 PM DRILL RUNNER HELPER TEACHER EDUCATION DIRECTOR EVALUATE AND TREAT FIBEROPTIC ENDOSCOPIC SWALLOW STAT 02/26/2024 9:59 AM DRILL RUNNER HELPER EGFR Timed 02/25/2024 10:53 PM DRILL RUNNER HELPER BASIC METABOLIC PANEL Timed 02/25/2024 10:53 PM DRILL RUNNER HELPER CBC WITHOUT DIFFERENTIAL Routine 02/25/2024 9:45 PM DRILL RUNNER HELPER BLOOD GAS, VENOUS STAT 02/25/2024 11: 18 AM DRILL RUNNER HELPER ECG 12-LEAD Routine 02/25/2024 11:07 AM DRILL RUNNER HELPER EGFR Routine 02/24/2024 8:10 PM DRILL RUNNER HELPER CALCIUM, IONIZED Routine 02/24/2024 8:10 PM DRILL RUNNER HELPER BASIC METABOLIC PANEL Routine 02/24/2024 8:10 PM DRILL RUNNER HELPER CBC WITHOUT DIFFERENTIAL Routine 02/24/2024 8:10 PM DRILL RUNNER HELPER DRUGS OF ABUSE SCREEN, URINE WITH REFLEX CONFIRMATION Routine 02/24/2024 1:51 AM DRILL RUNNER HELPER URINALYSIS, MICROSCOPIC ONLY Routine 02/24/2024 1:51 AM DRILL RUNNER HELPER URINALYSIS AND REFLEX TO MICROSCOPIC AND CULTURE Routine 02/24/2024 1:51 AM DRILL RUNNER HELPER EEG Routine 02/24/2024 1:16 AM DRILL RUNNER HELPER B CHECK SAMPLE STAT 02/24/2024 12:05 AM DRILL RUNNER HELPER CALCIUM, IONIZED STAT 02/23/2024 10:4 7 PM DRILL RUNNER HELPER TROPONIN I HIGH-SENSITIVITY 4-HOUR Timed 02/23/2024 10:47 PM DRILL RUNNER HELPER HEMOGLOBIN A1C STAT 02/23/2024 9:23 PM DRILL RUNNER HELPER LIPID PANEL Timed 02/23/2024 9:23 PM DRILL RUNNER HELPER EGFR Timed 02/23/2024 9:23 PM DRILL RUNNER HELPER PHOSPHORUS Timed 02/23/2024 9:23 PM DRILL RUNNER HELPER MAGNESIUM Timed 02/23/2024 9:23 PM DRILL RUNNER HELPER COMPREHENSIVE METABOLIC PANEL Timed 02/23/2024 9:23 PM DRILL RUNNER HELPER PROTIME-INR STAT 02/23/2024 9:23 PM DRILL RUNNER HELPER APTT STAT 02/23/2024 9:23 PM DRILL RUNNER HELPER TYPE AND SCREEN STAT 02/23/2024 9:23 PM DRILL RUNNER HELPER CBC WITHOUT DIFFERENTIAL STAT 02/23/2024 9:23 PM DRILL RUNNER HELPER TROPONIN I HIGH-SENSITIVITY 2-HOUR Timed 02/23/2024 9:23 PM DRILL RUNNER HELPER RESPIRATORY PATHOGEN PANEL Routine 02/23/2024 8:58 PM DRILL RUNNER HELPER BLOOD CULTURE STAT 02/23/2024 8:58 PM DRILL RUNNER HELPER BLOOD CULTURE STAT 02/23/2024 8:58 PM DRILL RUNNER HELPER ECG 12-LEAD STAT 02/23/2024 8:29 PM DRILL RUNNER HELPER POCT GLUCOSE DEVICE Routine 02/23/2024 8 :20 PM DRILL RUNNER HELPER MRI BRAIN WO CONTRAST Critical/Life-T hreatening 02/23/2024 8:07 PM DRILL RUNNER HELPER XR CHEST 1 VIEW IP Routine 02/23/2024 7:36 PM DRILL RUNNER HELPER ECG 12-LEAD STAT 02/23/2024 7:00 PM DRILL RUNNER HELPER LA CRITICAL CARE ILL/INJURED PATIENT INIT 30-74 MIN Routine 02/23/2024 6:58 PM DRILL RUNNER HELPER EGFR STAT 02/23/2024 6:40 PM DRILL RUNNER HELPER MAGNESIUM STAT 02/23/2024 6:40 PM DRILL RUNNER HELPER DIFFERENTIAL AUTO STAT 02/23/2024 6:4 0 PM DRILL RUNNER HELPER TROPONIN I HIGH-SENSITIVITY SERIES (BASELINE, 2HR, 4HR, 6HR) STAT 02/23/2024 6:40 PM DRILL RUNNER HELPER APTT STAT 02/23/2024 6:40 PM DRILL RUNNER HELPER COMPREHENSIVE METABOLIC PANEL STAT 02/23/2024 6:40 PM DRILL RUNNER HELPER CBC WITH AUTO DIFFERENTIAL STAT 02/23/2024 6:[address] STROKE PROTOCOL W WO CONTRAST Critical/Life-T hreatening 02/23/2024 6:35 PM DRILL RUNNER HELPER POCT PROTHROMBIN TIME, WHOLE BLOOD Routine 02/23/2024 6:22 PM DRILL RUNNER HELPER POCT GLUCOSE DEVICE Routine 02/23/2024 6 :21 PM DRILL RUNNER HELPER from Last 3 Months Results * IR Exchange Tunneled CVC (03/05/2024 10:02 AM DRILL RUNNER HELPER) Anatomical Region Laterality Modality Body Left X-Ray Angiograph y 03/05/2024 11:5 8 AM DRILL RUNNER HELPER Impressions 03/05/2024 2:09 PM DRILL RUNNER HELPER Successful fluoroscopically guided tunneled central venous catheter [...] Latrell Renee M.D. Narrative 03/05/2024 2:09 PM DRILL RUNNER HELPER EXAMINATION: ??LEFT FLUOROSCOPICALLY GUIDED TUNNELED CENTRAL VENOUS [...] was obtained. Prior to beginning the procedure, [place] Protocol was performed to confirm the patient's [...] was obtained. Prior to beginning the procedure, [place] Protocol was performed to confirm the patient's [...] it. Electronically signed by: Latrell Renee M.D. Kamila Jim MD IMG IR PROCEDURES Tiki l Result * (ABNORMAL) eGFR (03/05/2024 7:37 AM DRILL RUNNER HELPER) eGFR 6(L) >=60 mL/min/1. 73 m2 Comment: [...] last reviewed 2021. Blood 03/05/2024 7:37 AM DRILL RUNNER HELPER 03/05/2024 7:53 AM DRILL RUNNER HELPER Layton Amaro MD LAB BLOOD ORDERABLES Final Result [facility] One [facility] Department [place] [address] * Differential, auto (03/05/2024 7:37 AM DRILL RUNNER HELPER) Neutrophil abs 4.6 1.5 - 6.5 K/cumm Imm gran abs 0.0 0.0 - 0.1 K/cumm [facility] Lymphocyte abs 1.8 0.8 - 3.3 K/cumm [facility] Monocyte abs 0.7 0.2 - 0.8 K/cumm [facility] Eosinophil abs 0.4 0.0 - 0.5 K/cumm [facility] Basophil abs 0.1 0.0 - 0.1 K/cumm [facility] Neutrophil pct 60.6 % [facility] Comment: Interpretive Data Percent cell count reference ranges are not reported, since discordance with absolute values may lead to misinterpretation of CBC data. Current Interpretive Data was last revised on 2017. Imm gran pct 0.4 % [facility] Comment: Interpretive Data Percent cell count reference ranges are not reported, since discordance with absolute values may lead to misinterpretation of CBC data. Current Interpretive Data was last revised on 2017. Lymphocyte pct 23.6 % [facility] Comment: Interpretive Data Percent cell count reference ranges are not reported, since discordance with absolute values may lead to misinterpretation of CBC data. Current Interpretive Data was last revised on 2017. Monocyte pct 9.8 % [facility] Comment: Interpretive Data Percent cell count reference ranges are not reported, since discordance with absolute values may lead to misinterpretation of CBC data. Current Interpretive Data was last revised on 2017. Eosinophil pct 4.8 % [facility] Comment: Interpretive Data Percent cell count reference ranges are not reported, since discordance with absolute values may lead to misinterpretation of CBC data. Current Interpretive Data was last revised on 2017. Basophil pct 0.8 % [facility] Comment: Interpretive Data Percent cell count reference ranges are not reported, since discordance with absolute values may lead to misinterpretation of CBC data. Current Interpretive Data was last revised on 2017. Blood 03/05/2024 7:37 AM DRILL RUNNER HELPER 03/05/2024 7:54 AM DRILL RUNNER HELPER Layton Amaro MD LAB BLOOD ORDERABLES Final Result [facility] One [facility] Department [place] [address] * (ABNORMAL) CBC with auto differential (03/05/2024 7:37 AM DRILL RUNNER HELPER) WBC 7.5 3.8 - 9.9 K/cumm Hgb 11.3(L) 11.9 - 15.5 g/dL [facility] Hct 33.9(L) 35.6 - 45.5 % [facility] Plt 233 150 - 400 K/cumm [facility] MPV 10.0 9.1 - 12.3 fL [facility] RBC 3.21(L) 3.90 - 5.20 M/cumm [facility] MCV 105.6(H) 81.3 - 96.4 fL [facility] MCH 35.2(H) 27.1 - 33.3 pg [facility] MCHC 33.3 32.3 - 35.7 g/dL [facility] RDW CV 13.4 11.1 - 14.9 % [facility] RDW SD 51.7(H) 35.7 - 48.1 fL [facility] NRBC abs 0.00 0.00 - 0.01 K/cumm [facility] Blood 03/05/2024 7:37 AM DRILL RUNNER HELPER 03/05/2024 7:54 AM DRILL RUNNER HELPER Layton Sheridan MD LAB BLOOD ORDERABLES Final Result [facility] One [facility] Department [place] [address] * (ABNORMAL) Comprehensive metabolic panel (03/05/2024 7:37 AM DRILL RUNNER HELPER) Pathologist [facility] Sodium 141 135 - 145 mmol/L Potassium, pl 5.0(H) 3.3 - 4.9 mmol/L [facility] Chloride 103 97 - 110 mmol/L [facility] CO2 24 22 - 32 mmol/L [facility] Anion gap 14 2 - 15 mmol/L [facility] BUN 40(H) 6 - 25 mg/dL [facility] Creatinine 6.92(H) 0.60 - 1.10 mg/dL [facility] Glucose 87 70 - 199 mg/dL [facility] Comment: Interpretive Data Fasting glucose >/= 126 [...] 2022. Calcium 9.7 8.5 - 10.3 mg/dL [facility] Bilirubin, total 0.3 0.1 - 1.2 mg/dL [facility] Protein, pl 6.7 6.5 - 8.5 g/dL [facility] Albumin 4.1 3.5 - 5.0 g/dL [facility] Alk phos 69 40 - 130 Units/L [facility] ALT 13 7 - 45 Units/L [facility] AST 14 10 - 45 Units/L [facility] Blood 03/05/2024 7:37 AM DRILL RUNNER HELPER 03/05/2024 7:53 AM DRILL RUNNER HELPER Layton Sheridan MD LAB BLOOD ORDERABLES Final Result Performing Organization Address [facility] de Phone Number [facility]R [facility] One [facility] Department [place] [address] * ECG 12-LEAD (03/04/2024 10:54 PM DRILL RUNNER HELPER) Narrative [facility] - 03/04/2024 10:54 PM DRILL RUNNER HELPER Viktor Moore MD ? 03/04/2024 10:54 PM ECG 12 lead Date/Time: 03/04/2024 10:54 PM Performed by: Viktor Moore MD Authorized by: Layton Amaro MD ?? Layton Sheridan MD ECG ORDERABLES Final Resu lt Performing Organization Address [facility] de Phone Number [facility]USE [facility] * Neuro MR Outside Reference (03/04/2024 9:40 AM DRILL RUNNER HELPER) Impressions [facility] - 03/04/2024 9:40 AM DRILL RUNNER HELPER These images are for Reference purposes only and have not been reviewed by [facility] Radiology. ??There will be no report generated by a [facility] Radiologist. Narrative RAD_PACS_[facility] - 03/04/2024 9:40 AM DRILL RUNNER HELPER EXAMINATION: ??Images For Reference Purposes Only us Angel Arriaga MD IMG MRI PROCEDURES Final R esult Performing Organization Address [facility] Co de Phone Number [email or web address] * US Outside Reference (03/04/2024 9:38 AM DRILL RUNNER HELPER) Impressions [facility] - 03/04/2024 9:38 AM DRILL RUNNER HELPER These images are for Reference purposes only and have not been reviewed by [facility] Radiology. ??There will be no report generated by a [facility] Radiologist. Narrative [facility] - 03/04/2024 9:38 AM DRILL RUNNER HELPER EXAMINATION: ??Images For Reference Purposes Only Angel Arriaga MD IM US PROCEDURES Final Re sult Performing Organization Address [facility] de Phone Number [email or web address] * Neuro CT Outside Reference (03/04/2024 9:22 AM DRILL RUNNER HELPER) Impressions [facility] - 03/04/2024 9:22 AM DRILL RUNNER HELPER These images are for Reference purposes only and have not been reviewed by [facility] Radiology. ??There will be no report generated by a [facility] Radiologist. Narrative [facility] - 03/04/2024 9:22 AM DRILL RUNNER HELPER EXAMINATION: ??Images For Reference Purposes Only Angel Arriaga MD IMG CT PROCEDURES Final Re sult Performing Organization Address [facility] de Phone Number [email or web address] * Neuro MR Outside Reference (03/04/2024 9:08 AM DRILL RUNNER HELPER) Impressions [facility] - 03/04/2024 9:08 AM DRILL RUNNER HELPER These images are for Reference purposes only and have not been reviewed by [facility] Radiology. ??There will be no report generated by a [facility] Radiologist. Narrative [facility] - 03/04/2024 9:08 AM DRILL RUNNER HELPER EXAMINATION: ??Images For Reference Purposes Only Angel Arriaga MD IMG MRI PROCEDURES Final R esult Performing Organization Address [facility] de Phone Number [email or web address] * Neuro CT Outside Reference (03/04/2024 9:05 AM DRILL RUNNER HELPER) Impressions [facility] - 03/04/2024 9:05 AM DRILL RUNNER HELPER These images are for Reference purposes only and have not been reviewed by [facility] Radiology. ??There will be no report generated by a [facility] Radiologist. Narrative [facility] - 03/04/2024 9:05 AM DRILL RUNNER HELPER EXAMINATION: ??Images For Reference Purposes Only Angel Arriaga MD IMG CT PROCEDURES Final Re sult Performing Organization Address [facility] de Phone Number [email or web address] * Neuro CT Outside Reference (03/04/2024 8:23 AM DRILL RUNNER HELPER) Impressions [facility] - 03/04/2024 8:23 AM DRILL RUNNER HELPER These images are for Reference purposes only and have not been reviewed by [facility] Radiology. ??There will be no report generated by a [facility] Radiologist. Narrative [facility] - 03/04/2024 8:23 AM DRILL RUNNER HELPER EXAMINATION: ??Images For Reference Purposes Only Angel Arriaga MD IMG CT PROCEDURES Final Re sult Performing Organization Address [facility] de Phone Number [email or web address] * Neuro MR Outside Reference (03/04/2024 8:21 AM DRILL RUNNER HELPER) Impressions [facility] - 03/04/2024 8:21 AM DRILL RUNNER HELPER These images are for Reference purposes only and have not been reviewed by [facility] Radiology. ??There will be no report generated by a [facility] Radiologist. Narrative [facility] - 03/04/2024 8:21 AM DRILL RUNNER HELPER EXAMINATION: ??Images For Reference Purposes Only Angel Arriaga MD IMG MRI PROCEDURES Final R esult Performing Organization Address [facility] de Phone Number [email or web address] * Neuro CT Outside Reference (03/04/2024 8:07 AM DRILL RUNNER HELPER) Impressions [facility] - 03/04/2024 8:07 AM DRILL RUNNER HELPER These images are for Reference purposes only and have not been reviewed by [facility] Radiology. ??There will be no report generated by a [facility] Radiologist. Narrative [facility] - 03/04/2024 8:07 AM DRILL RUNNER HELPER EXAMINATION: ??Images For Reference Purposes Only Angel Arriaga MD IMG CT PROCEDURES Final Re sult Performing Organization Address [facility] de Phone Number [email or web address] * Neuro CT Outside Reference (03/04/2024 7:57 AM DRILL RUNNER HELPER) Impressions RAD_PACS_[facility]J - 03/04/2024 7:57 AM DRILL RUNNER HELPER These images are for Reference purposes only and have not been reviewed by [facility] Radiology. ??There will be no report generated by a [facility] Radiologist. Narrative RAD_PACS_BJ - 03/04/2024 7:57 AM DRILL RUNNER HELPER EXAMINATION: ??Images For Reference Purposes Only Angel Arriaga MD IMG CT PROCEDURES Final Re sult Performing Organization Address [facility] de Phone Number [email or web address] * Neuro CT Outside Reference (03/04/2024 7:54 AM DRILL RUNNER HELPER) Impressions RAD_PACS_[facility]J - 03/04/2024 7:54 AM DRILL RUNNER HELPER These images are for Reference purposes only and have not been reviewed by [facility] Radiology. ??There will be no report generated by a [facility] Radiologist. Narrative RAD_PACS_BJ - 03/04/2024 7:54 AM DRILL RUNNER HELPER EXAMINATION: ??Images For Reference Purposes Only Angel Arriaga MD IMG CT PROCEDURES Final Re sult Performing Organization Address [facility] de Phone Number [email or web address] * (ABNORMAL) eGFR (02/28/2024 8:13 PM DRILL RUNNER HELPER) eGFR 6(L) >=60 mL/min/1. 73 m2 Comment: [...] data was last reviewed 2021. Blood 02/28/2024 8:1 3 PM DRILL RUNNER HELPER 02/28/2024 8:56 PM DRILL RUNNER HELPER us Fabiana Wilson MD LAB BLOOD ORDERABLES Final Result [facility] One [facility] Department [place] [address] * (ABNORMAL) CBC without differential (02/28/2024 8:13 PM DRILL RUNNER HELPER) WBC 8.5 3.8 - 9.9 K/cumm Hgb 10.8(L) 11.9 - 15.5 g/dL [facility] Hct 33.3(L) 35.6 - 45.5 % [facility] Plt 232 150 - 400 K/cumm [facility] MPV 9.9 9.1 - 12.3 fL [facility] RBC 3.21(L) 3.90 - 5.20 M/cumm [facility] MCV 103.7(H) 81.3 - 96.4 fL [facility] MCH 33.6(H) 27.1 - 33.3 pg [facility] MCHC 32.4 32.3 - 35.7 g/dL [facility] RDW CV 13.6 11.1 - 14.9 % [facility] RDW SD 51.8(H) 35.7 - 48.1 fL [facility] NRBC abs 0.00 0.00 - 0.01 K/cumm [facility] Blood 02/28/2024 8:13 PM DRILL RUNNER HELPER 02/28/2024 8:56 PM DRILL RUNNER HELPER us Fabiana Wilson MD LAB BLOOD ORDERABLES Final Result [facility] One [facility] Department [place] [address] * (ABNORMAL) Basic metabolic panel (02/28/2024 8:13 PM DRILL RUNNER HELPER) Sodium 143 135 - 145 mmol/L Potassium, pl 4.6 3.3 - 4.9 mmol/L [facility] Chloride 105 97 - 110 mmol/L [facility] CO2 24 22 - 32 mmol/L [facility] Anion gap 14 2 - 15 mmol/L [facility] BUN 39(H) 6 - 25 mg/dL [facility] Creatinine 6.70(H) 0.60 - 1.10 mg/dL [facility] Glucose 148 70 - 199 mg/dL [facility] Comment: Interpretive Data Fasting glucose >/= 126 [...] 2022. Calcium 9.3 8.5 - 10.3 mg/dL [facility] Blood 02/28/2024 8:13 PM DRILL RUNNER HELPER 02/28/2024 8:56 PM DRILL RUNNER HELPER us Fabiana Wilson MD LAB BLOOD ORDERABLES Final Result Performing Organization Address City/[facility]/ZIP Co de Phone Number [facility] [place] [address] * (ABNORMAL) eGFR (02/27/2024 6:38 PM DRILL RUNNER HELPER) eGFR 7(L) >=60 mL/min/1. 73 m2 Comment: [...] last reviewed 2021. Blood 02/27/2024 6:38 PM DRILL RUNNER HELPER 02/27/2024 7:31 PM DRILL RUNNER HELPER us Fabiana Wilson MD LAB BLOOD ORDERABLES Final Result Performing Organization Address City/[facility]/ZIP Co de Phone Number [facility] Department [place] [address] * (ABNORMAL) CBC without differential (02/27/2024 6:38 PM DRILL RUNNER HELPER) [facility] [address] WBC 8.5 3.8 - 9.9 K/cumm Hgb 11.5(L) 11.9 - 15.5 g/dL [facility] Hct 34.4(L) 35.6 - 45.5 % [facility] Plt 228 150 - 400 K/cumm [facility] MPV 9.7 9.1 - 12.3 fL [facility] RBC 3.35(L) 3.90 - 5.20 M/cumm [facility] MCV 102.7(H) 81.3 - 96.4 fL [facility] MCH 34.3(H) 27.1 - 33.3 pg [facility] MCHC 33.4 32.3 - 35.7 g/dL [facility] RDW CV 13.6 11.1 - 14.9 % [facility] RDW SD 52.0(H) 35.7 - 48.1 fL [facility] NRBC abs 0.00 0.00 - 0.01 K/cumm [facility] Blood 02/27/2024 6:38 PM DRILL RUNNER HELPER 02/27/2024 7:31 PM DRILL RUNNER HELPER us Fabiana Wilson MD LAB BLOOD ORDERABLES Final Result [facility] Department [place] [address] * (ABNORMAL) Basic metabolic panel (02/27/2024 6:38 PM DRILL RUNNER HELPER) [facility] [address] Sodium 142 135 - 145 mmol/L Potassium, pl 4.5 3.3 - 4.9 mmol/L [facility] Chloride 104 97 - 110 mmol/L [facility] CO2 24 22 - 32 mmol/L [facility] Anion gap 14 2 - 15 mmol/L [facility] BUN 26(H) 6 - 25 mg/dL [facility] Creatinine 5.80(H) 0.60 - 1.10 mg/dL [facility] Glucose 124 70 - 199 mg/dL [facility] Comment: Interpretive Data Fasting glucose >/= 126 [...] 2022. Calcium 9.2 8.5 - 10.3 mg/dL [facility] Blood 02/27/2024 6:38 PM DRILL RUNNER HELPER 02/27/2024 7:31 PM DRILL RUNNER HELPER us Fabiana Wilson MD LAB BLOOD ORDERABLES Final Result [facility] One [facility] Department [place] [address] * (ABNORMAL) eGFR (02/26/2024 10:00 PM DRILL RUNNER HELPER) eGFR 12(L) >=60 mL/min/1. 73 m2 Comment: [...] of Race in Diagnosing Kidney Disease, JASN 202). The CKD-EPI equation should not be used for patients with unstable renal function and has not been validated in children and those over 70. Current interpretive data was last reviewed 2021. Blood 02/26/2024 10:0 0 PM DRILL RUNNER HELPER 02/26/2024 10:42 PM DRILL RUNNER HELPER us Fabiana Wilson MD LAB BLOOD ORDERABLES Final Result [facility] Department [place] [address] * (ABNORMAL) CBC without differential (02/26/2024 10:00 PM DRILL RUNNER HELPER) WBC 12.9(H) 3.8 - 9.9 K/cumm Hgb 11.6(L) 11.9 - 15.5 g/dL [facility] Hct 34.3(L) 35.6 - 45.5 % [facility] Plt 224 150 - 400 K/cumm [facility] MPV 9.7 9.1 - 12.3 fL [facility] RBC 3.36(L) 3.90 - 5.20 M/cumm [facility] MCV 102.1(H) 81.3 - 96.4 fL [facility] MCH 34.5(H) 27.1 - 33.3 pg [facility] MCHC 33.8 32.3 - 35.7 g/dL [facility] RDW CV 13.2 11.1 - 14.9 % [facility] RDW SD 50.1(H) 35.7 - 48.1 fL [facility] NRBC abs 0.00 0.00 - 0.01 K/cumm [facility] Blood 02/26/2024 10:0 0 PM DRILL RUNNER HELPER 02/26/2024 10:42 PM DRILL RUNNER HELPER Fabiana Wilson MD LAB BLOOD ORDERABLES Final Result [facility] Department [place] [address] * (ABNORMAL) Basic metabolic panel (02/26/2024 10:00 PM DRILL RUNNER HELPER) Pathologist [facility] Sodium 140 135 - 145 mmol/L Potassium, pl 3.9 3.3 - 4.9 mmol/L [facility] Chloride 102 97 - 110 mmol/L [facility] CO2 26 22 - 32 mmol/L [facility] Anion gap 12 2 - 15 mmol/L [facility] BUN 14 6 - 25 mg/dL [facility] Creatinine 3.79(H) 0.60 - 1.10 mg/dL [facility] Glucose 114 70 - 199 mg/dL [facility] Comment: Interpretive Data Fasting glucose >/= 126 [...] 2022. Calcium 9.0 8.5 - 10.3 mg/dL [facility] Blood 02/26/2024 10:0 0 PM DRILL RUNNER HELPER 02/26/2024 10:42 PM DRILL RUNNER HELPER Fabiana Wilson MD LAB BLOOD ORDERABLES Final Result [facility] [place] [place] [address] * Hepatitis B Surface Antigen Blood (02/26/2024 2:36 PM DRILL RUNNER HELPER) Pathologist [facility] HepBsAg Nonreactive Nonreactive Blood 02/26/2024 2:36 PM DRILL RUNNER HELPER 02/26/2024 2:45 PM DRILL RUNNER HELPER Kevon grimm MD LAB MICROBIOLOGY - GENERAL ORDERABLES Final Result [facility] Department [place] [address] * TEACHER EDUCATION DIRECTOR Evaluate and Treat (FEES) (02/26/2024 9:59 AM DRILL RUNNER HELPER) Narrative [facility] - 02/26/2024 9:59 AM DRILL RUNNER HELPER Chika Fish, TEACHER EDUCATION DIRECTOR ? 02/26/2024 11:21 AM Speech-Language Pathology: Flexible [...] Solids Recommendation: Mechanical soft Diet Liquids Recommendations: [place] thick (No ice in drinks, no ice [...] with puree or solids. With pt's permission, TEACHER EDUCATION DIRECTOR called pt's son to update son on [...] deficits Secretions: Minimal Consistencies Administered: Thin liquids, Leota thick liquids, Purees, Solids Thin Liquids: Laryngeal Penetration: Present Aspiration Present: ??(suspect posterior aspiration) Timing: Before, After Amount: Moderate Response to aspiration: None Cough: Non-productive Unsuccessful Modifications: Chin tuck, Repeat swallow, Cough Penetration Aspiration Scale-Thin: 8-Material enters the airway, passes below the vocal folds and no effort is made to eject Sharps Scale-Vallecular Residue-Thin Liquids: Mild Sharps Scale-Pyriform Sinus Residue-Thin Liquids: Mild Leota Thickened Liquids: Laryngeal Penetration: Present Aspiration Present: No Successful Modifications: Repeat swallow Unsuccessful Modifications: Cough Penetration Aspiration Scale-Leota: 3-Material enters the airway, remains above the vocal folds and is not ejected from the airway Yen Scale-Vallecular Residue-Leota Thickened Liquids: Trace Yen Scale-Pyriform Sinus Residue-Leota Thickened Liquids: Trace Purees: Laryngeal Penetration: None Aspiration Present: No Penetration Aspiration Scale-Puree: 1-Material does not enter airway Solids: Laryngeal Penetration: None Aspiration Present: No Penetration Aspiration Scale-Solids: 1-Material does not enter airway Sharps Scale-Vallecular Residue-Solids: None Sharps Scale-Pyriform Sinus Residue-Solids: None Dysphagia Outcome and Severity Scale: Dysphagia Outcomes and Severity Scale: 5 Mild dysphagia Levels 1 & 2 on the RALPH indicate need for nonoral nutrition. Treatment Treatment was not provided this date. Please reference care plan for treatment goals and details, if indicated. Plan TEACHER EDUCATION DIRECTOR Frequency of Services during current admission: 2-4x/wk TEACHER EDUCATION DIRECTOR Recommendation (Add'l Services): Inpatient Rehab Facility Next Visit Plan:treatment/therapy Additional Referrals: PT/OT Discharge Summary Statement If this is the last swallow therapy visit, this serves as the discharge summary. us Joe Bolton MD PhD TEACHER EDUCATION DIRECTOR ORDERABLES Fi nal Result [facility] * (ABNORMAL) eGFR (02/25/2024 10:53 PM DRILL RUNNER HELPER) eGFR 7(L) >=60 mL/min/1. 73 m2 Comment: [...] reviewed 2021. Blood 02/25/2024 10:5 3 PM DRILL RUNNER HELPER 02/25/2024 11:27 PM DRILL RUNNER HELPER us Joe Bolton MD PhD LAB BLOOD ORDERABL ES Final Result [facility] One [facility] Department [place] [address] * (ABNORMAL) Basic metabolic panel (02/25/2024 10:53 PM DRILL RUNNER HELPER) Sodium 141 135 - 145 mmol/L Potassium, pl 4.7 3.3 - 4.9 mmol/L [facility] Chloride 106 97 - 110 mmol/L [facility] CO2 25 22 - 32 mmol/L [facility] Anion gap 10 2 - 15 mmol/L [facility] BUN 36(H) 6 - 25 mg/dL [facility] Creatinine 6.26(H) 0.60 - 1.10 mg/dL [facility] Glucose 108 70 - 199 mg/dL [facility] Comment: Interpretive Data Fasting glucose >/= 126 [...] 2022. Calcium 9.7 8.5 - 10.3 mg/dL [facility] Blood 02/25/2024 10:5 3 PM DRILL RUNNER HELPER 02/25/2024 11:27 PM DRILL RUNNER HELPER us Joe Bolton MD PhD LAB BLOOD ORDERABL ES Final Result Performing Organization Address [facility]/ZIP Co de Phone Number [facility] [place] [place] [address] * (ABNORMAL) CBC without differential (02/25/2024 9:45 PM DRILL RUNNER HELPER) WBC 11.5(H) 3.8 - 9.9 K/cumm Hgb 10.8(L) 11.9 - 15.5 g/dL [facility] Hct 32.7(L) 35.6 - 45.5 % [facility] Plt 244 150 - 400 K/cumm [facility] MPV 9.5 9.1 - 12.3 fL [facility] RBC 3.15(L) 3.90 - 5.20 M/cumm [facility] MCV 103.8(H) 81.3 - 96.4 fL [facility] MCH 34.3(H) 27.1 - 33.3 pg [facility] MCHC 33.0 32.3 - 35.7 g/dL [facility] RDW CV 13.2 11.1 - 14.9 % [facility] RDW SD 50.4(H) 35.7 - 48.1 fL [facility] NRBC abs 0.00 0.00 - 0.01 K/cumm [facility] Blood 02/25/2024 9:45 PM DRILL RUNNER HELPER 02/25/2024 10:39 PM DRILL RUNNER HELPER us Fabiana Wilson MD LAB BLOOD ORDERABLES Final Result [facility] [place] [address] * (ABNORMAL) Blood gas, venous (02/25/2024 11:18 AM DRILL RUNNER HELPER) pH, Venous 7.36 7.32 - 7.43 PCO2, Venous 36(L) 40 - 50 mmHg [facility] PO2, Venous 47 mmHg [facility] Comment: Interpretive Data No Reference Range Established Current Interpretive Data was last revised on 2017. HCO3 Venous, Calculated 21 20 - 30 mmol/L [facility] BE, venous -4 mmol/L [facility] Comment: Interpretive Data No Reference Range Established Current Interpretive Data was last revised on 2017. Blood 02/25/2024 11:1 8 AM DRILL RUNNER HELPER 02/25/2024 11:25 AM DRILL RUNNER HELPER us Joe Bolton MD PhD LAB BLOOD ORDERABL ES Final Result Performing Organization Address City/[facility]/ZIP Co de Phone Number [facility] One [facility] Department [place] [address] * ECG 12 lead (02/25/2024 11:07 AM DRILL RUNNER HELPER) Pathologist [facility] Ventricular Rate EKG/Min 72 BPM [facility] Atrial Rate 72 BPM [facility] LA-Interval (MSEC) 144 ms [facility] QRS-Interval (MSEC) 88 ms [facility] QT-Interval (MSEC) 428 ms [facility] QTc 468 ms [facility] P [place] 48 degrees [facility] R [place] -68 degrees [facility] T [place] 52 degrees [facility] Diagnosis Normal sinus rhythm Left axis deviation 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 73 m2 Comment: [...] last reviewed 2021. Blood 02/24/2024 8:10 PM DRILL RUNNER HELPER 02/24/2024 8:26 PM DRILL RUNNER HELPER us Fabiana Wilson MD LAB BLOOD ORDERABLES Final Result Performing Organization Address [facility] Co de Phone Number [facility] Department [place] [place] [address] * Calcium, ionized (02/24/2024 8:10 PM DRILL RUNNER HELPER) Calcium, Ionized 4.55 4.50 - 5.10 mg/dL Blood 02/24/2024 8:10 PM DRILL RUNNER HELPER 02/24/2024 8:22 PM DRILL RUNNER HELPER us Laly Clements NP LAB BLOOD ORDERABLES Final Result Performing Organization Address City/[facility] Co de Phone Number [facility] [place] [address] * (ABNORMAL) CBC without differential (02/24/2024 8:10 PM DRILL RUNNER HELPER) [facility] [address] WBC 10.0(H) 3.8 - 9.9 K/cumm Hgb 10.4(L) 11.9 - 15.5 g/dL [facility] Hct 31.6(L) 35.6 - 45.5 % [facility] Plt 228 150 - 400 K/cumm [facility] MPV 9.8 9.1 - 12.3 fL [facility] RBC 3.06(L) 3.90 - 5.20 M/cumm [facility] MCV 103.3(H) 81.3 - 96.4 fL [facility] MCH 34.0(H) 27.1 - 33.3 pg [facility] MCHC 32.9 32.3 - 35.7 g/dL [facility] RDW CV 13.5 11.1 - 14.9 % [facility] RDW SD 51.5(H) 35.7 - 48.1 fL [facility] NRBC abs 0.00 0.00 - 0.01 K/cumm [facility] Blood 02/24/2024 8:10 PM DRILL RUNNER HELPER 02/24/2024 8:26 PM DRILL RUNNER HELPER us Fabiana Wilson MD LAB BLOOD ORDERABLES Final Result [facility] One [facility] Department [place] [address] * (ABNORMAL) Basic metabolic panel (02/24/2024 8:10 PM DRILL RUNNER HELPER) [facility] [address] Sodium 141 135 - 145 mmol/L Potassium, pl 4.8 3.3 - 4.9 mmol/L [facility] Chloride 100 97 - 110 mmol/L [facility] CO2 27 22 - 32 mmol/L [facility] Anion gap 14 2 - 15 mmol/L [facility] BUN 32(H) 6 - 25 mg/dL [facility] Creatinine 5.37(H) 0.60 - 1.10 mg/dL [facility] Glucose 99 70 - 199 mg/dL [facility] Comment: Interpretive Data Fasting glucose >/= 126 [...] 2022. Calcium 9.3 8.5 - 10.3 mg/dL [facility] Blood 02/24/2024 8:10 PM DRILL RUNNER HELPER 02/24/2024 8:26 PM DRILL RUNNER HELPER us Fabiana Wilson MD LAB BLOOD ORDERABLES Final Result [facility] Department [place] [address] * (ABNORMAL) Drugs of Abuse Screen, Urine with Reflex Confirmation (02/24/2024 1:51 AM DRILL RUNNER HELPER) [facility] [address] Amphetamine, ur Not Detected CutOff 500ng/mL Comment: Interpretive Data - Amphetamines: ??Samples containing greater than 500 ng/mL d-methamphetamine ??or other cross-reacting amphetamine compounds are reported as positive. ??Amphetamine immunoassays are subject to significant false positive rates due to cross-reactivity of non-amphetamine drugs. Confirmatory testing required for definitive results. Current Interpretive Data was last reviewed 2022. Barbiturates, ur Not Detected CutOff 200ng/mL [facility] Comment: Interpretive Data - Barbiturates: ??Samples containing greater than 200 ng/mL secobarbital or other cross-reacting barbiturate compounds are reported as positive. ??False positive and false negative results are possible. Confirmatory testing required for definitive results. Current Interpretive Data was last reviewed 2022. Benzodiazepines, ur Not Detected CutOff 100ng/mL [facility] Comment: Interpretive Data - Benzodiazepines: ??Samples containing greater than 100 ng/mL nordiazepam or other cross-reacting compounds are reported as positive. False positive and false negative results are possible. Confirmatory testing required for definitive results. Current Interpretive Data was last reviewed 2022. Cannabinoids, ur Screen Positive, presumptive (A) CutOff 50 ng/mL [facility] Comment: Interpretive Data - Cannabinoids: ??Samples containing greater than 50 ng/mL delta-9 THC -COOH or other cross-reacting compounds are reported as positive. ??False positive and false negative results are possible. ??Confirmatory testing required for definitive results. Current Interpretive Data was last reviewed 2022. Cocaine, ur Not Detected CutOff 150ng/mL [facility] Comment: Interpretive Data - Cocaine: ??Samples containing greater than 150 ng/mL benzoylecgonine or other cross-reacting compounds are reported as positive. False positive and false negative results are possible. Confirmatory testing required for definitive results. Current Interpretive Data was last reviewed 2022. Fentanyl, Ur Not Detected CutOff 5 ng/mL [facility] Comment: Interpretive Data - Fentanyl: ?? Samples containing greater than 5 ng/mL norfentanyl, fentanyl, or other cross-reacting fentanyl compounds are reported as positive. False positive and false negative results are possible. Confirmatory testing required for definitive results. Current Interpretive Data was last reviewed 2023. Methadone, ur Not Detected CutOff 300ng/mL [facility] Comment: Interpretive Data - Methadone: ??Samples containing greater than 300 ng/mL d,l-methadone or other cross-reacting compounds are reported as positive. ??False positive and false negative results are possible. Confirmatory testing required for definitive results. Current Interpretive Data was last reviewed 2022. Opiates, ur Not Detected CutOff 300ng/mL [facility] Comment: Interpretive Data - Opiates: ??Samples containing greater than 300 ng/mL morphine or other cross-reacting compounds are reported as positive. ??False positive and false negative results are possible. Confirmatory testing required for definitive results. Current Interpretive Data was last reviewed 2022. Oxycodone, ur Not Detected CutOff 100ng/mL [facility] Comment: Interpretive Data - Oxycodone: ??Samples containing greater than 100 ng/mL oxycodone or other cross-reacting compounds are reported as ??positive. ??False positive and false negative results are possible. Confirmatory testing required for definitive results. Current Interpretive Data was last reviewed 2022. Phencyclidine, ur Not Detected CutOff 25 ng/mL [facility] Comment: Interpretive Data - Phencyclidine: ??Samples containing greater than 25 ng/mL phencyclidine or other cross-reacting compounds are reported as positive. ??False positive and false negative results are possible. Confirmatory testing required for definitive results. Current Interpretive Data was last reviewed 2022. Urine Creatinine 51 mg/dL [facility] Comment: Interpretive Data Urine Creatinine: < 10 mg/dL is extremely dilute = or > 10 but < 20 mg/dL is dilute = or > 20 mg/dL is normal Current Interpretive Data was last revised on 2017. Urine 02/24/2024 1:51 AM DRILL RUNNER HELPER 02/24/2024 6:04 AM DRILL RUNNER HELPER Fabiana Wilson MD LAB URINE ORDERABLES Final Result [facility] One [facility] Department [place] [address] * (ABNORMAL) Urinalysis reflex to microscopic and culture Urine (02/24/2024 1:51 AM DRILL RUNNER HELPER) Color, ur Straw Yellow Clarity, ur Clear Clear [facility] Specific gravity, ur 1.024 1.003 - 1.030 [facility] pH, urine 8.0 [facility] Comment: Interpretive Data ? Urine pH is affected by diet, medications, systemic acid-base disturbances, and renal tubular function. ??pH may affect urinary stone formation. ??For example, urine pH below 6.0 may help reduce the tendency for calcium phosphate stones and pH greater than 6.0 may reduce the tendency for uric acid stone formation. Source: [facility] [employer] Current Interpretive Data was last revised on 2017 Protein, ur ql 1+(A) Negative [facility] Glucose, ur ql Negative Negative [facility] Ketones, ur Negative Negative [facility] Bilirubin, ur Negative Negative [facility] Blood, ur Negative Negative [facility] Urobilinogen, ur <2.0 <2.0 mg/dL [facility] Nitrite, ur Negative Negative [facility] Leukocyte esterase, ur Negative Negative [facility] UA reflex comment Reflex to microscopic UA will be performed. [facility] Urine 02/24/2024 1:51 AM DRILL RUNNER HELPER 02/24/2024 5:36 AM DRILL RUNNER HELPER Fabiana Wilson MD LAB MICROBIOLOGY - GENERAL ORDERABLES Final Result Performing Organization Address [facility] Co de Phone Number [facility] Department [place] [address] * (ABNORMAL) Urinalysis, microscopic only (02/24/2024 1:51 AM DRILL RUNNER HELPER) WBC, ur 0-5 0 - 5 /HPF RBC, ur 3-5(A) 0 - 2 /HPF [facility] Epithelial cells, squamous, ur 1-5 0 - 5 /HPF [facility] Bacteria, ur Trace(A) [facility] Culture Reflex Comment Reflex conditions for urine culture (WBC >10) not met. [facility] Urine 02/24/2024 1:51 AM DRILL RUNNER HELPER 02/24/2024 5:36 AM DRILL RUNNER HELPER Fabiana Wilson MD LAB URINE ORDERABLES Final Result Performing Organization Address [facility] Co de Phone Number [facility] Department [place] [address] * EEG (02/24/2024 1:16 AM DRILL RUNNER HELPER) Anatomical Region Laterality Modality EEG Narrative 02/24/2024 10:46 AM DRILL RUNNER HELPER Routine EEG Report Patient Name: Trisha Waite [facility] Medical Record Number (MRN): [id number] [facility] Record: No Soarian MRN Date of (): 1950 EEG Date: [...] 32 channel EEG recording acquired on a Events [employer] EEG-1200 acquisition system. Scalp electrodes were placed [...] Result * Check Sample (02/24/2024 12:05 AM DRILL RUNNER HELPER) ABO Rh O Positive [facility] HCLL OTHER 02/24/2024 12:0 5 AM DRILL RUNNER HELPER 02/24/2024 1:30 AM DRILL RUNNER HELPER Fabiana Wilson MD LAB BLOOD ORDERABLES Final Result Performing Organization Address [facility] [place] [address] [facility] * Troponin I high-sensitivity 4-hour (02/23/2024 10:47 PM DRILL RUNNER HELPER) Trop I hs 5 <=17 ng/L Comment: Interpretive Data For further hscTnI resources including the diagnostic algorithm and an aid in interpretation, copy and paste this link: https://bjhlab.testcatalog.org/show/hsTrop-1 Current Interpretive Data last revised 2019. Trop I hs delta -1 ng/L [facility] Trop I hs interp Insignificant [facility] Blood 02/23/2024 10:4 7 PM DRILL RUNNER HELPER 02/23/2024 11:47 PM DRILL RUNNER HELPER Fabiana Wilson MD LAB BLOOD ORDERABLES Final Result Performing Organization Address [facility] [place] [address] * (ABNORMAL) Calcium, ionized (02/23/2024 10:47 PM DRILL RUNNER HELPER) Pathologist [facility] Calcium, Ionized 3.82(L) 4.50 - 5.10 mg/dL Blood 02/23/2024 10:4 7 PM DRILL RUNNER HELPER 02/23/2024 11:34 PM DRILL RUNNER HELPER Fabiana Wilson MD LAB BLOOD ORDERABLES Final Result Performing Organization Address [facility] [place] [address] * Troponin I high-sensitivity 2-hour (02/23/2024 9:23 PM DRILL RUNNER HELPER) Trop I hs 6 <=17 ng/L Comment: Interpretive Data For further hscTnI resources including the diagnostic algorithm and an aid in interpretation, copy and paste this link: https://bjhlab.testcatalog.org/show/hsTrop-1 Current Interpretive Data last revised 2019. Trop I hs delta 0 ng/L [facility] Trop I hs interp Insignificant [facility] Blood 02/23/2024 9:23 PM DRILL RUNNER HELPER 02/23/2024 10:50 PM DRILL RUNNER HELPER Fabiana Wilson MD LAB BLOOD ORDERABLES Final Result [facility] One [facility] Department [place] [address] * (ABNORMAL) eGFR (02/23/2024 9:23 PM DRILL RUNNER HELPER) eGFR 11(L) >=60 mL/min/1. 73 m2 Comment: [...] last reviewed 2021. Blood 02/23/2024 9:23 PM DRILL RUNNER HELPER 02/23/2024 10:49 PM DRILL RUNNER HELPER us Fabiana Wilson MD LAB BLOOD ORDERABLES Final Result Performing Organization Address [facility] de Phone Number [facility] [place] [address] * (ABNORMAL) aPTT (02/23/2024 9:23 PM DRILL RUNNER HELPER) aPTT 25(L) 28 - 38 sec Comment: Interpretive Data Heparin therapeutic range: 66.0 - 100.0 seconds. Range based on correlation with therapeutic heparin activity range of 0.3 - 0.7 Units/mL. Current interpretive data was last revised on 2022. Blood 02/23/2024 9:23 PM DRILL RUNNER HELPER 02/23/2024 10:40 PM DRILL RUNNER HELPER Fabiana Wilson MD LAB BLOOD ORDERABLES Final Result Performing Organization Address [facility] de Phone Number [facility] [place] [address] * Protime-INR (02/23/2024 9:23 PM DRILL RUNNER HELPER) PT 10.8 9.7 - 13.0 sec INR 1.00 0.90 - 1.20 [facility] Comment: Interpretive data Oral anticoagulant therapeutic ranges: Venous thromboembolism prophylaxis or treatment: 2.0-3.0 CARDIOLOGY Standard range: 2.0-3.0 High-intensity range: 2.5-3.5 Refer to indication-specific guidelines for appropriate target ranges for prosthetic heart valve replacement. Current interpretive data was last revised on 2019. Blood 02/23/2024 9:23 PM DRILL RUNNER HELPER 02/23/2024 10:40 PM DRILL RUNNER HELPER Result [facility] us Fabiana Wilson MD LAB BLOOD ORDERABLES Final Result Performing Organization Address [facility] de Phone Number [facility] Department [place] [address] * (ABNORMAL) CBC without differential (02/23/2024 9:23 PM DRILL RUNNER HELPER) Pathologist [facility] WBC 8.5 3.8 - 9.9 K/cumm Hgb 10.1(L) 11.9 - 15.5 g/dL [facility] Hct 31.5(L) 35.6 - 45.5 % [facility] Plt 202 150 - 400 K/cumm [facility] MPV 9.9 9.1 - 12.3 fL [facility] RBC 2.99(L) 3.90 - 5.20 M/cumm [facility] MCV 105.4(H) 81.3 - 96.4 fL [facility] MCH 33.8(H) 27.1 - 33.3 pg [facility] MCHC 32.1(L) 32.3 - 35.7 g/dL [facility] RDW CV 13.3 11.1 - 14.9 % [facility] RDW SD 51.3(H) 35.7 - 48.1 fL [facility] NRBC abs 0.00 0.00 - 0.01 K/cumm [facility] Blood 02/23/2024 9:23 PM DRILL RUNNER HELPER 02/23/2024 10:49 PM DRILL RUNNER HELPER Fabiana Wilson MD LAB BLOOD ORDERABLES Final Result [facility] [place] [address] * Type and screen (02/23/2024 9:23 PM DRILL RUNNER HELPER) Pathologist [facility] ABO Rh O Positive Jose Carlos, indirect Negative [facility] Blood 02/23/2024 9:23 PM DRILL RUNNER HELPER 02/23/2024 11:06 PM DRILL RUNNER HELPER Narrative [facility] - 02/23/2024 11:57 PM DRILL RUNNER HELPER Has the patient had Daratumumab or Isatuximab in the past 6 months?->Unknown Fabiana Wilson MD LAB BLOOD BANK TEST ORDERAB LES Final Result Performing Organization Address [facility] [place] [address] * Phosphorus (02/23/2024 9:23 PM DRILL RUNNER HELPER) Phosphorus, pl 4.4 2.3 - 4.5 mg/dL Blood 02/23/2024 9:23 PM DRILL RUNNER HELPER 02/23/2024 10:49 PM DRILL RUNNER HELPER Fabiana Wilson MD LAB BLOOD ORDERABLES Final Result Performing Organization Address [facility] [place] [address] * Magnesium (02/23/2024 9:23 PM DRILL RUNNER HELPER) Pathologist [facility] Magnesium 2.1 1.4 - 2.5 mg/dL Blood 02/23/2024 9:23 PM DRILL RUNNER HELPER 02/23/2024 10:49 PM DRILL RUNNER HELPER Fabiana Wilson MD LAB BLOOD ORDERABLES Final Result Performing Organization Address [facility] [place] [address] * Hemoglobin A1c (02/23/2024 9:23 PM DRILL RUNNER HELPER) Hgb A1C 5.2 4.0 - 5.6 % Estimated Average Glucose 103 mg/dL [facility] Comment: The ADA recommends reporting an estimated Average Glucose (eAG) with all Hemoglobin A1c results using the equation derived from a study of 507 normal and diabetic adults. ??Minority populations were underrepresented and children were not included. ?? (Diabetes Care 2020; 43(S1): S66-S76). ??The eAG is not equivalent to a fasting glucose. Blood 02/23/2024 9:23 PM DRILL RUNNER HELPER 02/23/2024 10:53 PM DRILL RUNNER HELPER us Fabiana Wilson MD LAB BLOOD ORDERABLES Final Result [facility] Department [place] [address] * Lipid panel (02/23/2024 9:23 PM DRILL RUNNER HELPER) Cholesterol 103 30 - 199 mg/dL Comment: [...] revised on 2017. HDL 43 >=40 mg/dL [facility] Comment: Interpretive Data Ages < or = [...] on 2017. LDL, calculated 45 <=129 mg/dL [facility] Comment: Interpretive Data Ages < or = [...] revised on 2023. Non-HDL Cholesterol 60 mg/dL [facility] Comment: Interpretive Data Ages < or = [...] last revised on 2017. Chol/HDL ratio 2 [facility] Blood 02/23/2024 9:23 PM DRILL RUNNER HELPER 02/23/2024 10:49 PM DRILL RUNNER HELPER us Fabiana Wilson MD LAB BLOOD ORDERABLES Final Result [facility] One [facility] Department [place] [address] * (ABNORMAL) Comprehensive metabolic panel (02/23/2024 9:23 PM DRILL RUNNER HELPER) Sodium 139 135 - 145 mmol/L Potassium, pl 4.1 3.3 - 4.9 mmol/L [facility] Chloride 102 97 - 110 mmol/L [facility] CO2 28 22 - 32 mmol/L [facility] Anion gap 9 2 - 15 mmol/L [facility] BUN 18 6 - 25 mg/dL [facility] Creatinine 4.00(H) 0.60 - 1.10 mg/dL [facility] Glucose 86 70 - 199 mg/dL [facility] Comment: Interpretive Data Fasting glucose >/= 126 [...] 2022. Calcium 7.9(L) 8.5 - 10.3 mg/dL [facility] Bilirubin, total 0.3 0.1 - 1.2 mg/dL [facility] Protein, pl 5.7(L) 6.5 - 8.5 g/dL [facility] Albumin 3.1(L) 3.5 - 5.0 g/dL [facility] Alk phos 62 40 - 130 Units/L [facility] ALT 5(L) 7 - 45 Units/L [facility] Comment:Repeated and Verifie d AST 15 10 - 45 Units/L [facility] Blood 02/23/2024 9:23 PM DRILL RUNNER HELPER 02/23/2024 10:49 PM DRILL RUNNER HELPER Fabiana Wilson MD LAB BLOOD ORDERABLES Final Result [facility] One [facility] Department [place] [address] * Respiratory pathogen panel Nasopharyngeal (02/23/2024 8:58 PM DRILL RUNNER HELPER) Pathologist [facility] Influenza A RNA Not Detected Not Detected Influenza B RNA Not Detected Not Detected [facility] RSV RNA Not Detected Not Detected [facility] COVID-19 RNA Not Detected Not Detected [facility] Coronavirus 229E RNA Not Detected Not Detected [facility] Coronavirus HKU1 RNA Not Detected Not Detected [facility] Coronavirus NL63 RNA Not Detected Not Detected [facility] Coronavirus OC43 RNA Not Detected Not Detected [facility] Adenovirus DNA Not Detected Not Detected [facility] Metapneumovirus RNA Not Detected Not Detected [facility] Rhinovirus/Enterov irus RNA Not Detected Not Detected [facility] Parainfluenza 1 RNA Not Detected Not Detected [facility] Parainfluenza 2 RNA Not Detected Not Detected [facility] Parainfluenza 3 RNA Not Detected Not Detected [facility] Parainfluenza 4 RNA Not Detected Not Detected [facility] B. pertussis DNA Not Detected Not Detected [facility] B. parapertussis DNA Not Detected Not Detected [facility] C. pneumoniae DNA Not Detected Not Detected [facility] M. pneumoniae DNA Not Detected Not Detected [facility] Nasopharyngeal 02/23/2024 8: 58 PM DRILL RUNNER HELPER 02/23/2024 10:57 PM DRILL RUNNER HELPER Narrative [facility] - 02/24/2024 12:09 AM DRILL RUNNER HELPER Is the Patient experiencing symptoms consistent with COVID?->No Surveillance testing for transplant patient?->No ??Interpretive Data The CAXA FilmArray Respiratory Panel (RP2.1) assay is a [...] assay has FDA clearance for testing of [employer] swabs. ??The performance of additional specimen types has been assessed by the performing laboratory. ??The performance characteristics of this assay have been determined by [facility] Molecular Infectious Disease Laboratory. Current interpretive data was last revised on 21. us Fabiana Wilson MD LAB MICROBIOLOGY - GENERAL ORDERABLES Final Result [facility] One [facility] Department [place] [address] * Blood culture Blood (02/23/2024 8:58 PM DRILL RUNNER HELPER) Report Final Report: No growth Blood 02/23/2024 8:58 PM DRILL RUNNER HELPER 02/24/2024 12:25 AM DRILL RUNNER HELPER Narrative [facility] - 02/28/2024 7:00 AM DRILL RUNNER HELPER Second site Collection->Peripheral 1. ?Blood cultures are [...] performance characteristics have been verified by the [facility] Microbiology Laboratory. For questions about this culture, contact the Microbiology Laboratory at [phone]. Interpretive data was last revised on 24. Fabiana Wilson MD LAB MICROBIOLOGY - GENERAL ORDERABLES Final Result [facility] One [facility] Department [place] [address] * Blood culture Blood (02/23/2024 8:58 PM DRILL RUNNER HELPER) Report Final Report: No growth Blood 02/23/2024 8:58 PM DRILL RUNNER HELPER 02/24/2024 12:25 AM DRILL RUNNER HELPER Narrative [facility] - 02/28/2024 7:00 AM DRILL RUNNER HELPER Collection->Peripheral 1. ?Blood cultures are incubated for [...] performance characteristics have been verified by the [facility] Microbiology Laboratory. For questions about this culture, contact the Microbiology Laboratory at [phone]. Interpretive data was last revised on 24. Fabiana Wilson MD LAB MICROBIOLOGY - GENERAL ORDERABLES Final Result Performing Organization Address [facility] Co de Phone Number [facility] Department [place] [address] * ECG 12 lead (02/23/2024 8:29 PM DRILL RUNNER HELPER) [facility] [address] Ventricular Rate EKG/Min 65 BPM [facility] Atrial Rate 65 BPM [facility] LA-Interval (MSEC) 144 ms [facility] QRS-Interval (MSEC) 82 ms [facility] QT-Interval (MSEC) 480 ms [facility] QTc 499 ms [facility] P [place] 53 degrees [facility] R [place] -63 degrees [facility] T [place] 43 degrees [facility] Diagnosis Normal sinus rhythm Left axis deviation Inferior infarct , age undetermined Abnormal ECG No previous ECGs available Confirmed by ALFREDO HANNON M.D ([id number]) on 02/25/2024 5:17:23 PM [facility] 02/23/2024 8:29 PM DRILL RUNNER HELPER 02/25/2024 5:17 PM DRILL RUNNER HELPER Fabiana Wilson MD ECG ORDERABLES Final Resul t Performing Organization Address [facility] de Phone Number [facility] * POCT glucose (02/23/2024 8:20 PM DRILL RUNNER HELPER) Pathologist [facility] Glucose, POC 93 70 - 199 mg/dL Blood 02/23/2024 8:20 PM DRILL RUNNER HELPER 02/23/2024 8:20 PM DRILL RUNNER HELPER Fabiana Wilson MD LAB POCT ORDERABLES - DEVIC E Final Result Performing Organization Address [facility] Co de Phone Number [facility] Department [place] [address] * MRI Brain WO Contrast (02/23/2024 8:07 PM DRILL RUNNER HELPER) Anatomical Region Laterality Modality Head and Neck N/A Magnetic Resonan ce 02/23/2024 8:19 PM DRILL RUNNER HELPER Impressions 02/24/2024 8:32 AM DRILL RUNNER HELPER 1. ??No acute infarct or convincing evidence [...] Jesu Barker MD Narrative 02/24/2024 8:32 AM DRILL RUNNER HELPER EXAMINATION: Magnetic resonance imaging (MRI) of the [...] it. Electronically signed by: Jesu Barker MD Nolvia Georges MD IMG MRI PROCEDURES Final R esult * XR Chest 1 View (02/23/2024 7:36 PM DRILL RUNNER HELPER) Anatomical Region Laterality Modality Body, Chest N/A Digital Radiogra phy 02/23/2024 8:30 PM DRILL RUNNER HELPER Impressions 02/23/2024 8:30 PM DRILL RUNNER HELPER Comparison to 02/27/2023. Loop recorder noted. ??Left-sided central venous catheter with tip over the superior cavoatrial junction. ??Heart size is normal. Prominent mediastinal fat is again seen. ??Curvilinear opacities in the right midlung in the right lung base, likely scarring/atelectasis. ??No effusion or pneumothorax. Electronically signed by: Chacho Martini M.D. Narrative 02/23/2024 8:30 PM DRILL RUNNER HELPER EXAMINATION: 1 view chest radiograph Procedure Note [...] * (ABNORMAL) ECG 12-LEAD (02/23/2024 7:00 PM DRILL RUNNER HELPER) Narrative [facility] - 02/23/2024 7:00 PM DRILL RUNNER HELPER Fabiana Wilson MD ? 02/23/2024 ??7:01 PM [...] in the ED Fabiana Wilson MD 02/23/24 241 Fabiana Wilson MD ECG ORDERABLES Final Resul t [facility] * LA CRITICAL CARE ILL/INJURED PATIENT INIT 30-74 MIN (02/23/2024 6:58 PM DRILL RUNNER HELPER) Narrative Fabiana Wilson MD - 02/23/2024 6:58 PM DRILL RUNNER HELPER Fabiana Wilson MD ? 02/26/2024 ??8:32 PM [...] patient to a continuous cardiac monitored bed. Fabiana Wilson MD IN CLINIC/BEDSIDE ORDERABLE S Final Result * Troponin I high-sensitivity series (baseline, 2hr, 4hr, 6hr) (02/23/2024 6:40 PM DRILL RUNNER HELPER) Trop I hs 6 <=17 ng/L Comment: Code Blue Specimen Interpretive Data For further hscTnI resources including the diagnostic algorithm and an aid in interpretation, copy and paste this link: https://bjhlab.testcatalog.org/show/hsTrop-1 Current Interpretive Data last revised 2019. Blood 02/23/2024 6:40 PM DRILL RUNNER HELPER 02/23/2024 6:50 PM DRILL RUNNER HELPER us Fabiana Wilson MD LAB BLOOD ORDERABLES Final Result Performing Organization Address [facility] Co de Phone Number [facility] Department [place] [address] * (ABNORMAL) eGFR (02/23/2024 6:40 PM DRILL RUNNER HELPER) eGFR 13(L) >=60 mL/min/1. 73 m2 Comment: [...] of Race in Diagnosing Kidney Disease, JASN 202). The CKD-EPI equation should not be used for patients with unstable renal function and has not been validated in children and those over 70. Current interpretive data was last reviewed 2021. Blood 02/23/2024 6:40 PM DRILL RUNNER HELPER 02/23/2024 6:50 PM DRILL RUNNER HELPER us Fabiana Wilson MD LAB BLOOD ORDERABLES Final Result Performing Organization Address [facility] Co de Phone Number [facility] Department [place] [address] * (ABNORMAL) Differential, auto (02/23/2024 6:40 PM DRILL RUNNER HELPER) Neutrophil abs 6.6(H) 1.5 - 6.5 K/cumm Imm gran abs 0.1 0.0 - 0.1 K/cumm [facility] Lymphocyte abs 1.0 0.8 - 3.3 K/cumm [facility] Monocyte abs 1.0(H) 0.2 - 0.8 K/cumm [facility] Eosinophil abs 0.2 0.0 - 0.5 K/cumm [facility] Basophil abs 0.0 0.0 - 0.1 K/cumm [facility] Neutrophil pct 74.4 % [facility] Comment: Interpretive Data Percent cell count reference ranges are not reported, since discordance with absolute values may lead to misinterpretation of CBC data. Current Interpretive Data was last revised on 2017. Imm gran pct 0.8 % [facility] Comment: Interpretive Data Percent cell count reference ranges are not reported, since discordance with absolute values may lead to misinterpretation of CBC data. Current Interpretive Data was last revised on 2017. Lymphocyte pct 11.3 % [facility] Comment: Interpretive Data Percent cell count reference ranges are not reported, since discordance with absolute values may lead to misinterpretation of CBC data. Current Interpretive Data was last revised on 2017. Monocyte pct 10.7 % [facility] Comment: Interpretive Data Percent cell count reference ranges are not reported, since discordance with absolute values may lead to misinterpretation of CBC data. Current Interpretive Data was last revised on 2017. Eosinophil pct 2.3 % [facility] Comment: Interpretive Data Percent cell count reference ranges are not reported, since discordance with absolute values may lead to misinterpretation of CBC data. Current Interpretive Data was last revised on 2017. Basophil pct 0.5 % [facility] Comment: Interpretive Data Percent cell count reference ranges are not reported, since discordance with absolute values may lead to misinterpretation of CBC data. Current Interpretive Data was last revised on 2017. Blood 02/23/2024 6:40 PM DRILL RUNNER HELPER 02/23/2024 6:50 PM DRILL RUNNER HELPER Fabiana Wilson MD LAB BLOOD ORDERABLES Final Result [facility] [place] [address] * (ABNORMAL) CBC with auto differential (02/23/2024 6:40 PM DRILL RUNNER HELPER) WBC 8.9 3.8 - 9.9 K/cumm Comment:Code Blue Specimen Hgb 9.7(L) 11.9 - 15.5 g/dL [facility] Hct 30.5(L) 35.6 - 45.5 % [facility] Plt 180 150 - 400 K/cumm [facility] MPV 9.7 9.1 - 12.3 fL [facility] RBC 2.86(L) 3.90 - 5.20 M/cumm [facility] MCV 106.6(H) 81.3 - 96.4 fL [facility] MCH 33.9(H) 27.1 - 33.3 pg [facility] MCHC 31.8(L) 32.3 - 35.7 g/dL [facility] RDW CV 13.3 11.1 - 14.9 % [facility] RDW SD 52.2(H) 35.7 - 48.1 fL [facility] NRBC abs 0.00 0.00 - 0.01 K/cumm [facility] Blood (Blood, Venous) 02/23/2024 6:40 PM DRILL RUNNER HELPER 02/23/2024 6:50 PM DRILL RUNNER HELPER Narrative [facility] - 02/23/2024 6:55 PM DRILL RUNNER HELPER Potential Stroke Patient Fabiana Wilson MD LAB BLOOD ORDERABLES Final Result [facility] Department [place] [address] * (ABNORMAL) aPTT (02/23/2024 6:40 PM DRILL RUNNER HELPER) aPTT 24(L) 28 - 38 sec Comment: Code Blue Specimen Interpretive Data Heparin therapeutic range: 66.0 - 100.0 seconds. Range based on correlation with therapeutic heparin activity range of 0.3 - 0.7 Units/mL. Current interpretive data was last revised on 2022. Blood (Blood, Venous) 02/23/2024 6:40 PM DRILL RUNNER HELPER 02/23/2024 6:50 PM DRILL RUNNER HELPER Narrative [facility] - 02/23/2024 7:08 PM DRILL RUNNER HELPER Potential stroke patient. Fabiana Wilson MD LAB BLOOD ORDERABLES Final Result [facility] Department [place] [address] * Magnesium (02/23/2024 6:40 PM DRILL RUNNER HELPER) Pathologist [facility] Magnesium 2.0 1.4 - 2.5 mg/dL Blood 02/23/2024 6:40 PM DRILL RUNNER HELPER 02/23/2024 6:50 PM DRILL RUNNER HELPER Radha Quintanilla MD LAB BLOOD ORDERABLES Fi nal Result [facility] Department [place] [address] * (ABNORMAL) Comprehensive metabolic panel (02/23/2024 6:40 PM DRILL RUNNER HELPER) Sodium 140 135 - 145 mmol/L Comment:Code Blue Specimen Potassium, pl 3.5 3.3 - 4.9 mmol/L [facility] Comment:Code Blue Specimen Chloride 103 97 - 110 mmol/L [facility] Comment:Code Blue Specimen CO2 27 22 - 32 mmol/L [facility] Comment:Code Blue Specimen Anion gap 10 2 - 15 mmol/L [facility] Comment:Code Blue Specimen BUN 16 6 - 25 mg/dL [facility] Comment:Code Blue Specimen Creatinine 3.65(H) 0.60 - 1.10 mg/dL [facility] Comment:Code Blue Specimen Glucose 93 70 - 199 mg/dL [facility] Comment: Code Blue Specimen Interpretive Data Fasting [...] 2022. Calcium 7.5(L) 8.5 - 10.3 mg/dL [facility] Comment:Code Blue Specimen Bilirubin, total 0.2 0.1 - 1.2 mg/dL [facility] Comment:Code Blue Specimen Protein, pl 5.1(L) 6.5 - 8.5 g/dL [facility] Comment:Code Blue Specimen Albumin 2.9(L) 3.5 - 5.0 g/dL [facility] Comment:Code Blue Specimen Alk phos 53 40 - 130 Units/L [facility] Comment:Code Blue Specimen ALT <5(L) 7 - 45 Units/L [facility] Comment:Code Blue Specimen AST 12 10 - 45 Units/L [facility] Comment:Code Blue Specimen Blood (Blood, Venous) 02/23/2024 6:40 PM DRILL RUNNER HELPER 02/23/2024 6:50 PM DRILL RUNNER HELPER Narrative [facility] - 02/23/2024 7:22 PM DRILL RUNNER HELPER Potential Stroke Patient us Fabiana Wilson MD LAB BLOOD ORDERABLES Final Result [facility] [place] [address] * CTA Stroke Head Neck W WO Contrast (02/23/2024 6:35 PM DRILL RUNNER HELPER) Anatomical Region Laterality Modality Head and Neck N/A Computed Tomogra phy 02/23/2024 7:06 PM DRILL RUNNER HELPER Impressions 02/23/2024 7:15 PM DRILL RUNNER HELPER 1. ??Asymmetric calcifications of the left deep [...] Taylor Lundy M.D. Narrative 02/23/2024 7:15 PM DRILL RUNNER HELPER EXAMINATION: 1. Computed tomography angiography (CTA) of [...] pulvinar are are favored represent asymmetric deep olievira matter calcifications, however a component of superimposed [...] Artery: no occlusion or significant stenosis L WATCH GUARD GATE: origin of left WATCH GUARD GATE. R WATCH GUARD GATE: no occlusion or significant stenosis There is [...] Artery: no occlusion or significant stenosis L WATCH GUARD GATE: origin of left WATCH GUARD GATE. R WATCH GUARD GATE: no occlusion or significant stenosis There is [...] it. Electronically signed by: Taylor Lundy M.D. Fabiana Wilson MD IMG CT PROCEDURES Final Res ult * POCT prothrombin time, whole blood (02/23/2024 6:22 PM DRILL RUNNER HELPER) PT, POC 12.3 10.6 - 13.5 sec INR, bld, POC 1.0 0.9 - 1.2 [facility] Blood 02/23/2024 6:22 PM DRILL RUNNER HELPER 02/23/2024 6:22 PM DRILL RUNNER HELPER Result [facility] Fabiana Wilson MD LAB POCT ORDERABLES - DEVIC E Final Result Performing Organization Address [facility] Co de Phone Number [facility] Department [place] [address] * POCT glucose (02/23/2024 6:21 PM DRILL RUNNER HELPER) Glucose, POC 105 70 - 199 mg/dL Blood 02/23/2024 6:21 PM DRILL RUNNER HELPER 02/23/2024 6:21 PM DRILL RUNNER HELPER Result [facility] Fabiana Wilson MD LAB POCT ORDERABLES - DEVIC E Final Result Performing Organization Address City/[facility] Co de Phone Number [facility] [place] [address] from Last 3 Months Insurance MEDICARE MEDICARE Advance Directives For more information, please contact: [phone] Documents on File Type Date Recorded Patient Justowriter Operator Expl anation ADVANCE DIRECTIVE 03/02/2023 11:51 AM [...] 1:53 AM 03/01/2023 7:37 PM Care Teams Talent Recruiter Relationship Specialty Start Date End Date Jasson Cueva MD [address] [place] [id number] PCP - General Family Medicine 02/27/24
--- OUTSIDE RECORDS SUMMARY | 2024-03-19 19:04 | XMS_ITS | Encounter Summary ---
Author Organization [facility] Address [address] [place] [id number] Care Team Providers Care Hard Candy Spinner Name Role Phone No, Physician Primary Care Provider [phone] Reason for Visit * Auth/Cert (Routine) Specialty Diagnoses / Procedures Referred By Contac t Referred To Contact Diagnoses COPD with acute exacerbation (HCC) Dialysis; COPD exacerbation Procedures NA Referral ID Status Reason Start Date Expiration Date Visits Re quested Visits Authorized [id number] 1 1 Encounter Details Date Type Department Care Team (Late st Contact Info) Description 02/28/2023 12:23 AM WEB CONTENT SPECIALIST - 03/01/2023 3:32 PM WEB CONTENT SPECIALIST Hospital Encounter [place] [id number] [address] [place] [id number] Omid Beltran MD [address] [place] [address] [place] [address] Jermaine Mena DO [address] [place] [address] [place] [address] Adan Ware MD [address] [place] [address] [address] [place], [place] [id number] Closed fracture of one rib of right side, initial encounter (Primary Dx); Musculoskeletal chest pain; Acute respiratory failure with hypoxia (CMS/HCC) (HCC); Mild bibasilar atelectasis; Acute bronchitis, unspecified organism; 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); Primary hypertension; ESRD (end stage renal disease) on dialysis (HCC) [N18.6, Z99.2] Discharge Disposition: Discharge to SNF Social History Tobacco Use Types Packs/Day Years Used Date Smoking Tobacco: Former Cigarettes Tobacco Cessation:Counseling Given: Not Answered [facility] Utilities Answer Date Recorded In the past [...] often do you attend chur ch or alevism services? Never 02/28/2023 Do you belong to any clubs o r organizations such as protestant groups, unions, fraternal or athletic groups, or [...] place to sleep or slept in a group home (including now)? No 02/28/2023 Personal Safety Answer Date Recorded Have you ever been in or are you currently in a harmful physical or emotional relationship or is someone making you feel afraid or unsafe? Denies 02/28/2023 Comments Unknown Sex and Gender Information Value Date Recorded Sex Assigned at Not on file Legal Sex Female 7:00 PM WEB CONTENT SPECIALIST Gender Identity Not on file Sexual Orientation Not on file documented as of this encounter Last Filed Vital Signs Vital Sign Reading Time Taken Comments Blood Pressure 98/63 03/01/2023 8:09 AM WEB CONTENT SPECIALIST Pulse 63 03/01/2023 8:09 AM WEB CONTENT SPECIALIST Temperature 36.6 ??C (97.9 ??F) 03/01/2023 8:09 AM CS T Respiratory Rate 18 03/01/2023 8:09 AM WEB CONTENT SPECIALIST Oxygen Saturation 95% 03/01/2023 8:09 AM WEB CONTENT SPECIALIST Inhaled Oxygen Concentration - - Weight 77.3 kg (170 lb 6.7 oz) 03/01/2023 4:00 A M WEB CONTENT SPECIALIST Height 152.4 cm (5') 02/28/2023 12:35 AM WEB CONTENT SPECIALIST Body Mass Index 33.28 02/28/2023 12:35 AM WEB CONTENT SPECIALIST documented in this encounter Discharge Summaries * Adan Ware MD - 03/01/2023 2:17 PM CST Inpatient Discharge Summary BRIEF OVERVIEW Admitting Provider: Omid Beltran MD Discharge Provider: Adan Ware MD Primary Care Physician at Discharge: No, Physician [phone] Admission Date: 02/28/2023 Discharge Date: 03/01/2023 Admission Location: [facility] Problems/Diagnoses: Principal Problem: COPD with acute exacerbation (HCC) Active Problems: Closed fracture of one rib of right side Musculoskeletal chest pain Acute respiratory failure with hypoxia (CMS/HCC) (HCC) Mild bibasilar atelectasis Acute bronchitis 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) Primary hypertension ESRD (end stage renal disease) on dialysis ([facility]) Resolved Problems: No resolved hospital problems. DETAILS OF HOSPITAL STAY Presenting Problem/History of Present Illness: Chest pain Hospital Course: 72 years old female with past medical history significant for CVA, hypertension, COPD, ESRD on hemodialysis M/W/F presented with right sided chest pain, was found to have acute mildly displaced fracture of posterior left eye 7, mild bibasilar atelectasis and possible acute bronchitis. # acute mildly displaced right 7th rib fracture # bibasilar atelectasis # possible acute bronchitis Encouraged incentive spirometry, lidocaine patch, Sandy for pain To complete 5 days of course of azithromycin # ESRD on hemodialysis M/W/F Nephrology on consult: appreciate recs Last HD session on 02/28/2023 # history of hypertension Patient is normotensive, discontinue amlodipine and Lasix, continue metoprolol assaulting 5 mg daily # GERD continue omeprazole DVT prophylaxis heparin subQ Code status full code Discharge plan: Patient will be discharged back to SNF with lidocaine patch, azithromycin 250 mg daily for 4 more days Follow up PCP in 1 week Patient was advised and instructed to return to ED if symptoms recur worsen I spent 25 minutes in patient discharge Active Issues Requiring Follow-up: Bronchitis, rib fracture Test Results Pending at Discharge: Operative Procedures Performed: Other Procedures: None Pertinent Test Results: None Discharge Details Physical Exam at Discharge: Discharge Condition: stable Pulse: 63 Resp: 18 BP: 98/63 Temp: 36.6 ??C (97.9 ??F) Weight: 77.3 kg (170 lb 6.7 oz) Physical Exam: General alert and oriented x3 Cardiovascular RRR, normal S1 and S2, no murmurs or gallops Respiratory, slightly diminished breath sounds in bases bilaterally, clear to auscultation bilaterally, no coarse sounds, wheezing, rales, not using accessory muscles, able to speak full sentences , TTP over right lateral chest wall, HD cath in place Abdominal nondistended, soft, normal bowel sounds, no rebound or guarding Extremities no edema, palpable pulses bilaterally Neurological alert and oriented x3, intact cranial nerve, intact sensation all extremities, intact muscle strength, normal speech, normal gait. Discharge Disposition: Discharge to SNF Code Status at Discharge: .Full Code Discharge Instructions: As discharge plan Discharge Medications: Current Medications TAKE these medications amLODIPine 5 mg tablet Take 1 tablet (5 mg total) by mouth daily Commonly known as: NORVASC aspirin 81 mg enteric coated tablet Take 1 tablet (81 mg total) by mouth daily azithromycin 250 mg tablet Take 1 tablet (250 mg total) by mouth daily for 4 doses For: Upper Respiratory/HEENT Infection Commonly known as: ZITHROMAX cholecalciferol 5,000 unit tablet Take 1 tablet (5,000 Units total) by mouth daily Commonly known as: VITAMIN D-3 furosemide 20 mg tablet Take 1 tablet (20 mg total) by mouth every other day For: visible water retention Commonly known as: LASIX gabapentin 100 mg capsule Take 1 capsule (100 mg total) by mouth 3 (three) times a day For: neuropathic pain Commonly known as: NEURONTIN HYDROcodone-acetaminophen 5-325 mg per tablet Take 1 tablet by mouth every 6 (six) hours as needed for pain For: pain Commonly known as: NORCO lidocaine 5 % Place 1 patch on the skin daily Remove & discard patch within 12 hours or as directed by MD. Commonly known as: LIDODERM Start taking on: March 02, 2023 metoprolol XL 25 mg extended release tablet Take 1 tablet (25 mg total) by mouth daily Commonly known as: TOPROL-XL omeprazole 20 mg tablet,delayed release (DR/EC) Take 1 tablet (20 mg total) by mouth daily Outpatient Follow-Up: Contact Information for Follow-ups No, Physician Relationship: PCP - General Next Steps: Follow up in 1 week(s) CONTENT SPECIALIST documented in this encounter Discharge Instructions * Attachments The following attachments cannot be sent through Care Everywhere. * Rib Fracture (Discharge Care) (Tristanian) * Atelectasis (Discharge Care) (Tristanian) documented in this encounter Medications at Time of Discharge aspirin 81 mg enteric coated tablet Take 1 tablet (81 mg total) by mouth daily cholecalciferol (VITAMIN D-3) 5,000 unit tablet Take 1 tablet (5,000 Units total) by mouth daily gabapentin (NEURONTIN) 100 mg capsule Take 1 capsule (100 mg total) by mouth 3 (three) times a day HYDROcodone-acet aminophen (NORCO) 5-325 mg per tablet Take 1 tablet by mouth every 6 (six) hours as needed for pain omeprazole 20 mg tablet,delayed release (DR/EC) Take 1 tablet (20 mg total) by mouth daily azithromycin (ZITHROMAX) 250 mg tabletIndication s:Upper Respiratory/HEEN T Infection Take 1 tablet (250 mg total) by mouth daily for 4 doses 4 tablet 03/01/2023 03/05/2023 amLODIPine (NORVASC) 5 mg tablet Take 1 tablet (5 mg total) by mouth daily 02/29/2024 furosemide (LASIX) 20 mg tabletIndication s:Edema Take 1 tablet (20 mg total) by mouth every other day 02/29/2024 lidocaine (LIDODERM) 5 % Place 1 patch on the skin daily Remove & discard patch within 12 hours or as directed by . 7 patch 03/02/2023 02/29/2024 metoprolol XL (TOPROL-XL) 25 mg extended release tablet Take 1 tablet (25 mg total) by mouth daily 02/29/2024 documented as of this encounter Ordered Prescriptions Prescription Sig Dispense Quantity Refills Last Filled Start Date End Date lidocaine (LIDODERM) 5 % Place 1 patch on the skin daily Remove & discard patch within 12 hours or as directed by . 7 patch 03/02/2023 4 azithromycin (ZITHROMAX) 250 mg tabletIndications: Upper Respiratory/HEENT Infection Take 1 tablet (250 mg total) by mouth daily for 4 doses 4 tablet 03/01/2023 3 documented in this encounter Discharge Disposition Disposition Code Departure Means Destination Comment s Discharge to SNF documented in this encounter Progress Notes * Cassandra Stern MSW - 03/01/2023 2:39 PM CST DISCHARGE TO [facility] Social Work has coordinated discharge plan. Patient has been accepted to [facility]. RN informed to call report and fax orders to numbers listed below. Transportation has been arranged via facility [address] [address] LYNN Novoa 03/01/2023 2:39 PM CONTENT SPECIALIST CONTENT SPECIALIST * Adan Ware MD - 03/01/2023 12:16 PM CST .General Medicine Daily Progress Subjective Patient was seen and examined today, no acute overnight changes, remains afebrile with stable vitalsigns, still complaining of reproducible right lateral chest wall pain with deep inspiration, denies any other complaints Past Medical History: Diagnosis Date CHF (congestive heart failure) (CMS/HCC) (HCC) CKD (chronic kidney disease), stage IV (CMS/HCC) (HCC) COPD (chronic obstructive pulmonary disease) (HCC) Depression Hemiplegia and hemiparesis following cerebral infarction affecting right dominant side (HCC) HLD (hyperlipidemia) Hypertension Memory deficit following other cerebrovascular disease Metabolic encephalopathy Osteoarthritis Polyneuropathy Stroke ([facility]) Objective Vitals: 24hr Min/Max: Temp Min: 36.3 ??C (97.3 ??F) Max: 36.8 ??C (98.2 ??F) Pulse Min: 63 Max: 77 BP Min: 98/63 Max: 124/53 Resp Min: 18 Max: 20 SpO2 Min: 92 % Max: 98 % Most Recent : Vitals: 03/01/23 0809 BP: 98/63 Pulse: 63 Resp: 18 Temp: 36.6 ??C (97.9 ??F) SpO2: 95% I/O last 2 completed shifts: In: 870 [P.O.:120; I.V.:250; Other:500] Out: 2500 [Other:2500] No intake/output data recorded. Physical Exam: .General alert and oriented x3 Cardiovascular RRR, normal S1 and S2, no murmurs or gallops Respiratory, slightly diminished breath sounds in bases bilaterally, clear to auscultation bilaterally, no coarse sounds, wheezing, rales, not using accessory muscles, able to speak full sentences , TTP over right lateral chest wall, HD cath in place Abdominal nondistended, soft, normal bowel sounds, no rebound or guarding Extremities no edema, palpable pulses bilaterally Neurological alert and oriented x3, intact cranial nerve, intact sensation all extremities, intact muscle strength, normal speech, normal gait. Lab/Radiology/Diagnostic Review: Laboratory review: Lab results in the last 12 hours: Recent Results (from the past 12 hour(s)) CBC with auto differential Collection Time: 03/01/23 4:40 AM Result Value Ref Range WBC 9.1 3.8 - 9.9 K/cumm Hgb 10.9 (L) 11.9 - 15.5 g/dL Hct 33.5 (L) 35.6 - 45.5 % Plt 197 150 - 400 K/cumm MPV 10.6 9.1 - 12.3 fL RBC 3.56 (L) 3.90 - 5.20 M/cumm MCV 94.1 81.3 - 96.4 fL MCH 30.6 27.1 - 33.3 pg MCHC 32.5 32.3 - 35.7 g/dL RDW CV 13.8 11.1 - 14.9 % RDW SD 47.2 35.7 - 48.1 fL NRBC abs 0.00 0.00 - 0.01 K/cumm Basic metabolic panel Collection Time: 03/01/23 4:40 AM Result Value Ref Range Sodium 134 (L) 135 - 145 mmol/L Potassium, pl 4.0 3.3 - 4.9 mmol/L Chloride 93 (L) 97 - 110 mmol/L CO2 25 22 - 32 mmol/L Anion gap 16 (H) 2 - 15 mmol/L BUN 48 (H) 6 - 25 mg/dL Creatinine 4.30 (H) 0.60 - 1.10 mg/dL Glucose 108 70 - 199 mg/dL Calcium 9.5 8.5 - 10.3 mg/dL Differential, auto Collection Time: 03/01/23 4:40 AM Result Value Ref Range Neutrophil abs 5.8 1.5 - 6.5 K/cumm Imm gran abs 0.0 0.0 - 0.1 K/cumm Lymphocyte abs 2.2 0.8 - 3.3 K/cumm Monocyte abs 0.9 (H) 0.2 - 0.8 K/cumm Eosinophil abs 0.2 0.0 - 0.5 K/cumm Basophil abs 0.1 0.0 - 0.1 K/cumm Neutrophil pct 63.3 % Imm gran pct 0.3 % Lymphocyte pct 23.8 % Monocyte pct 9.5 % Eosinophil pct 2.3 % Basophil pct 0.8 % eGFR Collection Time: 03/01/23 4:40 AM Result Value Ref Range eGFR 10 mL/min/1.73 m2 Recent Results (from the past 48 hour(s)) Basic metabolic panel Collection Time: 02/28/23 5:01 AM Result Value Ref Range Sodium 139 135 - 145 mmol/L Potassium, pl 4.6 3.3 - 4.9 mmol/L Chloride 101 97 - 110 mmol/L CO2 21 (L) 22 - 32 mmol/L Anion gap 17 (H) 2 - 15 mmol/L BUN 47 (H) 6 - 25 mg/dL Creatinine 4.60 (H) 0.60 - 1.10 mg/dL Glucose 154 70 - 199 mg/dL Calcium 10.1 8.5 - 10.3 mg/dL CBC with auto differential Collection Time: 02/28/23 5:01 AM Result Value Ref Range WBC 6.0 3.8 - 9.9 K/cumm Hgb 11.9 11.9 - 15.5 g/dL Hct 36.6 35.6 - 45.5 % Plt 232 150 - 400 K/cumm MPV 10.7 9.1 - 12.3 fL RBC 3.78 (L) 3.90 - 5.20 M/cumm MCV 96.8 (H) 81.3 - 96.4 fL MCH 31.5 27.1 - 33.3 pg MCHC 32.5 32.3 - 35.7 g/dL RDW CV 13.6 11.1 - 14.9 % RDW SD 48.4 (H) 35.7 - 48.1 fL NRBC abs 0.00 0.00 - 0.01 K/cumm Differential, auto Collection Time: 02/28/23 5:01 AM Result Value Ref Range Neutrophil abs 5.4 1.5 - 6.5 K/cumm Imm gran abs 0.0 0.0 - 0.1 K/cumm Lymphocyte abs 0.5 (L) 0.8 - 3.3 K/cumm Monocyte abs 0.1 (L) 0.2 - 0.8 K/cumm Eosinophil abs 0.0 0.0 - 0.5 K/cumm Basophil abs 0.0 0.0 - 0.1 K/cumm Neutrophil pct 89.3 % Imm gran pct 0.2 % Lymphocyte pct 8.8 % Monocyte pct 1.3 % Eosinophil pct 0.2 % Basophil pct 0.2 % eGFR Collection Time: 02/28/23 5:01 AM Result Value Ref Range eGFR 10 mL/min/1.73 m2 Hepatitis B surface antibody (immune status) Blood Collection Time: 02/28/23 1:27 PM Specimen: Blood Result Value Ref Range HBsAb (immune status) Equivocal Hepatitis B Surface Antigen Blood Collection Time: 02/28/23 1:27 PM Specimen: Blood Result Value Ref Range HepBsAg Nonreactive Nonreactive CBC with auto differential Collection Time: 03/01/23 4:40 AM Result Value Ref Range WBC 9.1 3.8 - 9.9 K/cumm Hgb 10.9 (L) 11.9 - 15.5 g/dL Hct 33.5 (L) 35.6 - 45.5 % Plt 197 150 - 400 K/cumm MPV 10.6 9.1 - 12.3 fL RBC 3.56 (L) 3.90 - 5.20 M/cumm MCV 94.1 81.3 - 96.4 fL MCH 30.6 27.1 - 33.3 pg MCHC 32.5 32.3 - 35.7 g/dL RDW CV 13.8 11.1 - 14.9 % RDW SD 47.2 35.7 - 48.1 fL NRBC abs 0.00 0.00 - 0.01 K/cumm Basic metabolic panel Collection Time: 03/01/23 4:40 AM Result Value Ref Range Sodium 134 (L) 135 - 145 mmol/L Potassium, pl 4.0 3.3 - 4.9 mmol/L Chloride 93 (L) 97 - 110 mmol/L CO2 25 22 - 32 mmol/L Anion gap 16 (H) 2 - 15 mmol/L BUN 48 (H) 6 - 25 mg/dL Creatinine 4.30 (H) 0.60 - 1.10 mg/dL Glucose 108 70 - 199 mg/dL Calcium 9.5 8.5 - 10.3 mg/dL Differential, auto Collection Time: 03/01/23 4:40 AM Result Value Ref Range Neutrophil abs 5.8 1.5 - 6.5 K/cumm Imm gran abs 0.0 0.0 - 0.1 K/cumm Lymphocyte abs 2.2 0.8 - 3.3 K/cumm Monocyte abs 0.9 (H) 0.2 - 0.8 K/cumm Eosinophil abs 0.2 0.0 - 0.5 K/cumm Basophil abs 0.1 0.0 - 0.1 K/cumm Neutrophil pct 63.3 % Imm gran pct 0.3 % Lymphocyte pct 23.8 % Monocyte pct 9.5 % Eosinophil pct 2.3 % Basophil pct 0.8 % eGFR Collection Time: 03/01/23 4:40 AM Result Value Ref Range eGFR 10 mL/min/1.[address] CHEST WO CON Result Date: 02/27/2023 Narrative: IMAGING STUDIES: CT CHEST WO CON DATE: 02/27/2023 12:18 PM COMPARISON STUDIES: 10/02/2022 CLINICAL HISTORY: Diffuse/interstitial lung disease . Intermittent right-sided chest pain. Shortness of breath. Hypertension. COPD. . Radiation dose reduction technique was utilized. FINDINGS: 1. Development of mild atelectasis within both lung bases. Slightly greater on the right side. No pleuraleffusion or pneumothorax.. 2. Development of acute appearing mildly displaced fracture of the posterior lateral right seventh rib on image 53 of series 3. Multiple other old healed right-sided rib fractures... 3. Mild to moderate mucosal thickening of the bilateral bronchial jackson. Greater in the lower lobes. May be due to bronchitis versus reactive airway disease 4. Stable mild scar formation inthe lingular segment in right middle lobe.. Also development of mild atelectasis within the anterior right upper lobe. Similar emphysematous change with scattered bleb formation and mild scar formation. 5. Atherosclerotic aorta without dilatation. No pericardial effusion. No pathologic lymphadenopathy or pulmonary nodules. Advanced coronary artery calcifications.. Left-sided central line with tipin mid superior vena cava. 6. Upper abdomen with normal adrenals. Fatty superior liver. Partially visualized gallbladder with calculi. Atrophic left kidney. Mildly atrophic right kidney with difficult to characterize cystic lesions. Follow-up with outpatient ultrasound. Degenerative change in thoracic spine. Loop recorder overlying the left chest. Impression: IMPRESSION: 1. Acute-appearing mildly displaced fracture of the posterior lateral rightseventh rib as detailed above. Multiple other old healed right-sided rib fractures. 2. Development of mild atelectasis in both lung bases, greater on the right side. No pleural effusion or pneumothorax. 3. Peribronchial wall thickening as detailed above. May be due to bronchitis versus reactive airway disease. 4. Similar emphysematous changes. Ordered By: ANATOLIY FAIR Electronically SignedBy: Remi Crespo on 02/27/2023 3:12 PM Interpreted By: Remi Crespo, 02/27/2023 2:53 PM No results found for the last 90 days. Current Facility-Administered Medications Medication Dose Route Frequency Provider Last Rate Last Admin acetaminophen (TYLENOL) tablet 650 mg 650 mg oral Q4H PRN Omid Beltran MD 650 mg at105/01/228 [Held by Provider] amLODIPine (NORVASC) tablet 5 mg 5 mg oral Daily Omid Beltran MD5 mg at 03/01/23 0806 aspirin enteric coated tablet 81 mg 81 mg oral Daily Omid Belrtan MD 81 mg at 03/01/23 0806 azithromycin (ZITHROMAX) tablet 250 mg 250 mg oral Daily Omid Beltran MD 250 mg at 02/28/23 1537 Carrier Fluids for Secondary Infusion - 0.9% Sodium Chloride 30 mL intravenous PRN Omid Beltran MD cholecalciferol (VITAMIN D-3) capsule 5,000 Units 5,000 Units oral Daily Omid Beltran MD 5,000 Units at 03/01/23 0806 docusate sodium (COLACE) capsule 100 mg 100 mg oral BID PRN Omid Beltran MD 100 mg at 02/28/232117 gabapentin (NEURONTIN) capsule 100 mg 100 mg oral TID Omid Beltran MD 100 mg at 03/01/23 0806 heparin 5,000 unit/mL injection 5,000 Units 5,000 Units subcutaneous Q8H VARGHESE Omid Beltran MD 5,000 Units at 03/01/23 0550 HYDROcodone-acetaminophen (NORCO) 5-325 mg per tablet 1 tablet 1 tablet oral Q6H PRN Omid Beltran MD 1 tablet at 03/01/23 0400 ipratropium-albuteroL (DUO-NEB) 0.5-2.5 mg/3 mL nebulizer solution 3 mL 3 mL nebulization Q4H PRN (RT) Omid Beltran MD lidocaine (LIDODERM) 5 % patch 1 patch 1 patch transdermal Q24H Omid Beltran MD 1 patch at 03/01/23 0303 metoprolol XL (TOPROL-XL) extended release tablet 25 mg 25 mg oral Daily Omid Beltran MD 25 mg at 03/01/23 0806 ondansetron ODT (ZOFRAN-ODT) disintegrating tablet 4 mg 4 mg oral Q6H PRN Omid Beltran MD Or ondansetron (ZOFRAN) injection 4 mg 4 mg intravenous Q6H PRN Omid Beltran MD pantoprazole DR (PROTONIX) extended release tablet 40 mg 40 mg oral Daily Omid Beltran MD 40 mg at 03/01/23 0806 ramelteon (ROZEREM) tablet 8 mg 8 mg oral Nightly PRN Omid Beltran MD sodium chloride 0.9% flush 0.5-20 mL 0.5-20 mL intra-catheter Q8H VARGHESE Omid Beltran MD 10 mL at 03/01/23 0550 sodium chloride 0.9% flush 0.5-20 mL 0.5-20 mL intra-catheter PRN Omid Beltran MD Assessment/Plan Principal Problem: COPD with acute exacerbation (HCC) Active Problems: Closed fracture of one rib of right side Musculoskeletal chest pain Acute respiratory failure with hypoxia (CMS/HCC) ([facility]) Mild bibasilar atelectasis Acute bronchitis Dependent on hemodialysis (CMS/HCC) ([facility]) Primary hypertension ESRD (end stage renal disease) on dialysis ([facility]) A/P: 72 years old female with past medical history significant for CVA, hypertension, COPD, ESRD on hemodialysis M/W/F presented with right sided chest pain, was found to have acute mildly displaced fracture of posterior left eye 7, mild bibasilar atelectasis and possible acute bronchitis. # acute mildly displaced right 7th rib fracture # bibasilar atelectasis # possible acute bronchitis Encouraged incentive spirometry, lidocaine patch, Sandy for pain To complete 5 days of course of azithromycin # ESRD on hemodialysis M/W/F Nephrology on consult: appreciate recs Last HD session on 02/28/2023 # history of hypertension Patient is normotensive, discontinue amlodipine and Lasix, continue metoprolol assaulting 5 mg daily # GERD continue omeprazole DVT prophylaxis heparin subQ Code status full code Discharge plan: Patient will be discharged back to SNF with lidocaine patch, azithromycin 250 mg daily for 4 more days Follow up PCP in 1 week Patient was advised and instructed to return to ED if symptoms recur worsen CONTENT SPECIALIST CONTENT SPECIALIST * Prashant Bernardo, OT - 03/01/2023 10:10 AM CST Occupational Therapy 03/01/23 1010 General Chart Reviewed Yes Session Type Evaluation OT Received On 03/01/23 Safe Environment Arm band checked;Patient found in supine;Session completed bedside Subjective Agreeable to Therapy Treatment Duration 26 Minutes Additional Pertinent History Patient is a 72 y.o. woman with multiple medical problems including CVA with consequent memory impairment and mild right-sided hemiparesis, history of CKD 3-4 on HD x6 weeks, and COPD, among many other problems. She was transferred to our facility due to new oxygen requirement requiring hospitalization and need for HD which could not be provided there. Evaluation in the ER with chest CT showed an acute fracture of the right 7th rib as well as suspicion for bronchitis. She also had new oxygen requirement due to hypoxia to 88% on room air (improved on 3 liters/minute via NC). Family/Caregiver Present No Occupational Therapy-Patient Goal To feel better and breathe easier Current Functional Status OT Functional Mobility Pt recieved supine in bed on 2L supplemental O2 via NC. Pt requires min assist to complete bed mobility sup>sit EOB for trunk elevation and to swing RLE out of bed. While sitting EOB pt reports increase in lightheadedness symptoms and increased in R flank pain with deep breathing exercises. Pt returned to supine with mod assist for trunk control and to lift RLE into bed. OT Self Care Pt completes LB dressing with min assist due to decreased dynamic sitting balance while sitting EOB with figure four method to don socks. Pt completes simulated grooming/bathing to wash hair and requires mod assist this date due to decreased RUE function limited by R flank pain and residual CVA symptoms/weakness. OT Cognition A&O x4, pt reports difficulty with memory OT Communication Able to communicate concerns and goals for therapy effectively. Precautions Precautions Fall risk;Bed/Chair Alarm Home Living Type of Home House Home Layout One level Home Access Stairs to enter without rails Entrance Stairs-Number of Steps 4 Bathroom Shower/Tub Tub/shower unit Bathroom Toilet Standard Bathroom Equipment Tub transfer bench Home Mobility Equipment-Available Wheeled walker;Single point cane Home Mobility Equipment-Currently Using Wheeled walker;Single point cane Home ADL Equipment-Available Contestant Coordinator Prior Function Level of [place] Independent with ADLs;Independent functional transfers;Needs assistance with homemaking;Independent with ambulation Lives With Alone Receives Help From Family (Son nearby) Driving Yes Mode of Transportation Car;Driven by self ADL Assistance Needs assistance Bathing Moderate Dressing Independent Grooming Independent Toileting Independent Feeding Independent Instrumental ADL (IADL) Assistance Needs assistance Meal Prep Independent Laundry Moderate Cleaning Independent Medical Management Independent Fall within the last 6 months Yes Fall within the last 6 months comment 2 Pain Assessment Pain Assessment No/denies pain (No pain at rest, pt reprots increased pain with functional mobility and bed mobility and with exertion/deep breathing exercises to recover SPO2.) Activity Tolerance Endurance Tolerates less than 10 min activity no significant change in vital signs Activity Tolerance Comments Pt maintained sitting EOB for x4 minutes this date before reporting continued increase in lightheadedness/dizziness despite pursed lip breathing on 2L/min supplemental O2.Pt returned to supine with symptoms improving. Vision-Basic Assessment Current Vision Wears glasses only for reading Cognition Cognition Comments SBT n/t this date due to decreased activity tolerance and pt requesting to rest after returning to bed. Pt reports residual deficits related to short term memory since CVA. Overall Cognitive Status Unable to assess Arousal/Alertness Alert Attention Span Appears intact Memory Unable to assess Current communication Appears Intact Orientation Oriented X4 (person, place, time, situation) Following Commands Follows all commands and directions without difficulty Safety Judgment Good awareness of safety precautions Awareness of Errors Good awareness of errors made Insight Fully aware of deficits Compliance/Behavior Easy to engage Sensation Light Touch WFL Deep Pressure WFL Numbness/Tingling No Coordination Serial Opposition WFL RUE Assessment RUE Assessment X RUE Comments Decreased AROM for RUE internal/external rotation, flexion/extension, and abduction to< 90 degrees. Decreased AROM R elbow<> wrist. All deficits residual from CVA per pt report. Strength 3+/5 grossly. LUE Assessment LUE Assessment WFL LUE Comments Strength 4/5 Safe Environment End of Therapy Session Safe Environment End of Therapy Session Patient left supine in bed;Bed alarm in place and activated;RN notified;Call light within reach;Overbed table within reach Assessment Prognosis Fair Problem List Decreased upper extremity range of motion;Decreased upper extremity strength;Decreasedcognition;Decreased endurance;Decreased balance;Decreased functional mobility;Decreased ADL independence;Decreased IADL independence;Decreased UE function;Decreased ROM;Pain Barriers to Discharge Current Mobility Status;Decreased caregiver support Plan Plan Plan of care initiated Recommendation/Plan OT Recommendation Group Home Facility Patient at high risk for Falls;Injury due to decreased ability to care for self;Injury due to reduced functional status;Injury at home as patient has not returned to prior level of function Recommend SNF due to Risk of injury at home;Unable to safely care for self in the home;Skilled therapy needed to address care for self in the home;Skilled therapy needed to address functional deficits;Skilled therapy needed for patient to return to prior level of independence OT Frequency during current admission 3-5x/wk Treatment/Interventions during current admission ADL/IADL retraining;Bed mobility;Compensatory technique education;Endurance training;Functional activity;Functional mobility training;Strengthening;Therapeutic activity;Therapeutic exercise;Range of motion;Upper extremity motor function/functional skills OT - Next Appointment 03/15/23 OT Evaluation Complete Yes Pt will benefit from skilled OT in order to increase safety and independence with ADL/IADls, decrease fall risk, promote healing, return to PLOF, decrease pain, and increase quality of life. Education provided to the patient/caregiver regarding the role of occupational therapy, plan of care, goals of therapy, rationale for progressing mobility and use of call light. Good understanding. At time of this note complete, pt has already discharged from this admission. POC discontinued. CONTENT SPECIALIST * Funmi Wahl, PT - 02/28/2023 4:33 PM CST Physical Therapy 02/28/23 3442 General Chart Reviewed Yes Session Type Evaluation PT Received On 02/28/23 Safe Environment Arm band checked;Patient found in supine;Gait belt utilized for all out of bed mobility Subjective Agreeable to Therapy Additional Pertinent History R rib fx; HD; HTN; ESRD, Hx CVA, COPD Family/Caregiver Present No Physical Therapy-Patient Goal return home Precautions Precautions Fall risk Home Living Type of Home House Home Layout One level Home Access Stairs to enter with rails Prior Function Level of [place] Independent with ADLs;Independent functional transfers;Independent with ambulation (uses 2ww) Lives With Alone Receives Help From Family Pain Assessment Pain Assessment No/denies pain Cognition Arousal/Alertness Alert Orientation Oriented X4 (person, place, time, situation) Bed Mobility Bed Mobility Yes Bed Mobility 1 Bed Mobility From 1 Supine Bed Mobility Type 1 To Bed Mobility to 1 Edge of bed Level of Assistance 1 Minimum Assist Transfers Transfer Yes Transfer 1 Transfer From 1 Sit Transfer Type 1 To and from Transfer to 1 Stand Technique 1 Sit to stand;Stand to sit Transfer Device 1 Wheeled walker Transfer Level of Assistance 1 Contact Guard Assist Ambulation Ambulation Yes Ambulation 1 Distance (ft) 1 5 Surface 1 Level tile Device 1 Wheeled walker Assistance 1 Contact Guard Assist Gait Deviations 1 [place] - decreased;Posture - flexed RLE Assessment RLE Assessment X Strength RLE RLE Overall Strength Deficits LLE Assessment LLE Assessment X Strength LLE LLE Overall Strength Deficits Assessment Prognosis Good Problem List Gait deviations;Decreased strength;Decreased range of motion;Decreased endurance;Impaired balance;Decreased mobility;Pain Plan Plan Plan of care initiated Recommendation/Plan PT Recommendation/Plan Group Home Facility Patient at high risk for Falls;Readmission;Injury due to decreased ability to care for self;Injury due to reduced functional status;Injury due to balance deficits;Injury at home as patient has not returned to prior level of function;Developing impaired skin integrity;Cognitive decline due to decreased social participation;Prolonged dependence for self care tasks;Difficulty maintaining orthopedic restrictions Recommend SNF due to Risk of injury at home;Unable to safely care for self in the home;Skilled therapy needed to address care for self in the home;Skilled therapy needed to address functional deficits;Skilled therapy needed for patient to return to prior level of independence PT Frequency during current admission 5-7x/wk Treatment/Interventions during current admission Bed mobility;Gait training;Functional transfer training;Functional activity;Range of motion;Strengthening;Therapeutic activity;Therapeutic exercise;Transfer training PT Equipment Recommended Wheeled walker PT - Next Appointment 03/14/23 PT Evaluation Complete Yes Educated the patient to the role of physical therapy, plan of care, goals of therapy, rationale forprogressing mobility and home safety. Patient was left with all needs met and equipment intact. Mobility and ADL status posted at bedsideand within medical record. Multi-Disciplinary Problems (from Physical Therapy) Active Problems Problem: Mobility Start Date: 02/28/23 Goal Start Date Expected End Date End Date STG - Patient will ambulate 02/28/23 03/07/23 -- Goal Details: Pt will ambulate 25' with 2ww and CGA Problem: Transfers Start Date: 02/28/23 Goal Start Date Expected End Date End Date STG - Patient will perform bed mobility 02/28/23 03/07/23 -- Goal Details: Pt will perform bed mobility IND Goal Start Date Expected End Date End Date STG - Patient will transfer sit to and from stand 02/28/23 03/07/23 -- Goal Details: Pt will transfer sit to and from stand IND CONTENT SPECIALIST * Kiki Vidal MSW - 02/28/2023 3:43 PM CST IP Social Work Assessment Social History: Prior to admission the patient was at [facility] for snf. PATHOLOGY SECRETARY placed call to son due to Alayna Dave Mariann CVA with consequent memory impairment. Son stated that he is agreeable to Alaynajosé Lawrence returning to snf at [place] at time of dc. Son stated that they have been working to get her set up with medicaid. Alayna Lawrence uses [facility] 11am. Impressions: PATHOLOGY SECRETARY spoke with LESIA Hightower over the phone to discuss dc planning. Patient was A&Ox 2-3, pleasant, and cooperative. Patient will likely benefit from Group Home Facilities at d/c. son agreeable with dc plan. Based on a comprehensive family assessment, assistance with instrumental activities of daily livingafter discharge will be provided by SNF. Alayna Lawrence has the knowledge of available resources and that combining them with their existing resources will suffice and sustain care at discharge. The treatment team is aware of this information. All are in agreement with the aftercare plan. Problem: Patient identified for social work consult due to dc planning . Alayna Lawrence would benefit from continued therapy services at d/c. PT/OT recs for snf. Goal: Social work will work with Alayna Lawrence and family for discharge planning needs.Social work assess for possible complex discharge concerns. Provide resources and education to help reduce readmission and improve correction health. Social Work Plan: Patient is at [address] [address] for snf. Referrals placed via [facility]. They are agreeable to return attime of dc. Assessment: Prior to Admission Support System: Children Home Care Services: No Potential Discharge Needs Patient expects to be discharged to:: Group Home Facility Facility Information and Contact : [facility] (02/28/23 [id number]) Questions encouraged and answered. Will continue to follow progression of care and monitor for further discharge needs. LYNN Clark 02/28/2023 3:43 PM CONTENT SPECIALIST * Juana Quach MSW - 02/28/2023 3:33 PM CST Update: PATHOLOGY SECRETARY sent referral to [facility] SNF, as patient was there for rehab prior to admission. Referral sent via [facility], per social work protocol. Additional referrals to be sent as needed. LYNN Joaquin 3:34 PM 02/28/2023 CONTENT SPECIALIST documented in this encounter H&P Notes * Omid Beltran MD - 02/28/2023 1:54 AM CST Images from the original note were not included. History and Physical Date of Service: 02/28/2023 Primary Care Physician: Zhane, Physician [phone] CHIEF COMPLAINT: Chest pain HPI: Patient is a 72 y.o. woman with multiple medical problems including CVA with consequent memory impairment and mild right-sided hemiparesis, history of CKD 3- 4 on HD x6 weeks, and COPD, among many other problems. She [facility] a [facility] to an outside hospital on account of right- sided chest pain that is described as sharp and worse when taking a deep breath or coughing. Onset and duration is uncertain. Evaluation in the ER with chest CT showed an acute fracture of the right 7th rib as well as suspicion for bronchitis. She also had new oxygen requirement due to hypoxia to 88% on room air (improved on 3 liters/minute via NC). ABG showed pH 7.39, pCO2 40.2, PO2 64. BNP 1,272. EKG: NSR, HR 63, LAFB. She was treated with Solu-Medrol, nebulized bronchodilators, and azithromycin for probable acute exacerbation of COPD. She was transferred to our facility due to new oxygen requirement requiring hos pitalization and need for HD which could not be provided there. At presentation here, she could not recall the reason for going to the ED and denied having chest pain, difficulty breathing, and any other symptoms. However, upon attempted evaluation, pain in the right chest wall was provoked upon which she recalled that she was having pain. She could not recall if she had fallen earlier. She was laying comfortably in supine position. Past Medical History: Diagnosis Date CHF (congestive heart failure) ([facility]) ([facility]) CKD (chronic kidney disease), stage IV ([facility]) ([facility]) COPD (chronic obstructive pulmonary disease) ([facility]) Depression Hemiplegia and hemiparesis following cerebral infarction affecting right dominant side ([facility]) HLD (hyperlipidemia) Hypertension Memory deficit following other cerebrovascular disease Metabolic encephalopathy Osteoarthritis Polyneuropathy Stroke ([facility]) Past Surgical History: Procedure Laterality Date JOINT REPLACEMENT SHOULDER SURGERY Right TOTAL HIP ARTHROPLASTY Bilateral Family history: Unknown due to patient's impaired memory. Medications Prior to Admission Medication Sig Dispense Refill Last Dose amLODIPine (NORVASC) 5 mg tablet Take 1 tablet (5 mg total) by mouth daily 02/27/2023 aspirin 81 mg enteric coated tablet Take 1 tablet (81 mg total) by mouth daily 02/27/2023 cholecalciferol (VITAMIN D-3) 5,000 unit tablet Take 1 tablet (5,000 Units total) by mouth daily 02/27/2023 furosemide (LASIX) 20 mg tablet Take 1 tablet (20 mg total) by mouth every other day 02/27/2023 gabapentin (NEURONTIN) 100 mg capsule Take 1 capsule (100 mg total) by mouth 3 (three) times a day 02/27/2023 HYDROcodone-acetaminophen (NORCO) 5-325 mg per tablet Take 1 tablet by mouth every 6 (six) hours asneeded for pain Unknown metoprolol XL (TOPROL-XL) 25 mg extended release tablet Take 1 tablet (25 mg total) by mouth daily 02/27/2023 omeprazole 20 mg tablet,delayed release (DR/EC) Take 1 tablet (20 mg total) by mouth daily 02/27/2023 No Known Allergies Social History Tobacco Use Smoking status: Former Types: Cigarettes Smokeless tobacco: None Substance and Sexual Activity Drug use: None Sexual activity: None Alcohol Use: Not on file Review of Systems: Unreliable due to impaired memory. OBJECTIVE: Vitals: Arrival Vitals [02/28/2334] Temp 36.9 ??C (98.4 ??F) Pulse 66 Resp 22 BP 114/72 SpO2 93 % Temp src Oral Heart Rate Source Patient Position Lying BP Location Right arm FiO2 (%) Most Recent : Vitals: 02/28/2334 BP: 114/72 BP Location: Right arm Patient Position: Lying Pulse: 66 Resp: 22 Temp: 36.9 ??C (98.4 ??F) TempSrc: Oral SpO2: 93% Physical Exam: Gen: In no acute distress Head: Normocephalic, atraumatic Neck: No JVD, supple ENT: Moist oral mucosa Heart/CV: RRR, normal S1/S2, no S3/S4, no murmur/gallop, no pedal edema; tunneled HD catheter present in the left chest wall Lungs/Resp: Non-labored breathing, CTAB although breathing is slightly shallow and cautious; tenderness over the right lateral lower ribs in the mid axillary line Abdomen/GI: Non-distended, soft and nontender; normal bowel sounds : No CVA tenderness MSK: No extremity deformity, normal ROM of all extremities; subtle decrease in strength in the right upper/lower extremities Neuro: Alert and conversational; oriented to person and knows that she is in a hospital Skin: Intact Psych: Normal affect Lab/Radiology/Diagnostic Review: No results found for this or any previous visit (from the past 24 hour(s)). CT CHEST WO CON Result Date: 02/27/2023 Narrative: IMAGING STUDIES: CT CHEST WO CON DATE: 02/27/2023 12:18 PM COMPARISON STUDIES: 10/02/2022 CLINICAL HISTORY: Diffuse/interstitial lung disease . Intermittent right-sided chest pain. Shortness of breath. Hypertension. COPD. . Radiation dose reduction technique was utilized. FINDINGS: 1. Development of mild atelectasis within both lung bases. Slightly greater on the right side. No pleuraleffusion or pneumothorax.. 2. Development of acute appearing mildly displaced fracture of the posterior lateral right seventh rib on image 53 of series 3. Multiple other old healed right-sided rib fractures... 3. Mild to moderate mucosal thickening of the bilateral bronchial jackson. Greater in the lower lobes. May be due to bronchitis versus reactive airway disease 4. Stable mild scar formation inthe lingular segment in right middle lobe.. Also development of mild atelectasis within the anterior right upper lobe. Similar emphysematous change with scattered bleb formation and mild scar formation. 5. Atherosclerotic aorta without dilatation. No pericardial effusion. No pathologic lymphadenopathy or pulmonary nodules. Advanced coronary artery calcifications.. Left-sided central line with tipin mid superior vena cava. 6. Upper abdomen with normal adrenals. Fatty superior liver. Partially visualized gallbladder with calculi. Atrophic left kidney. Mildly atrophic right kidney with difficult to characterize cystic lesions. Follow-up with outpatient ultrasound. Degenerative change in thoracic spine. Loop recorder overlying the left chest. Impression: IMPRESSION: 1. Acute-appearing mildly displaced fracture of the posterior lateral rightseventh rib as detailed above. Multiple other old healed right-sided rib fractures. 2. Development of mild atelectasis in both lung bases, greater on the right side. No pleural effusion or pneumothorax. 3. Peribronchial wall thickening as detailed above. May be due to bronchitis versus reactive airway disease. 4. Similar emphysematous changes. Ordered By: ANATOLIY FAIR Electronically SignedBy: Remi Crespo on 02/27/2023 3:12 PM Interpreted By: Remi Crespo, 02/27/2023 2:53 PM ASSESSMENT/PLAN: Acute right chest wall pain Acute mildly displaced right 7th rib fracture -musculoskeletal pain; lidocaine patch; p.r.n. Tylenol and Sandy -monitor outcome of pain control Probable acute bronchitis -no respiratory symptoms at this time -azithromycin daily; DuoNebs p.r.n. Acute respiratory failure with hypoxia -likely due to bronchitis and bibasilar atelectasis from chest splinting -incentive spirometry; DuoNebs -ambulation encouraged: PT/OT evaluation requested On HD MWF -onset 6 weeks ago; uncertain is ESRD versus MOIRA on CKD 3-4; on Lasix -nephrology consulted for HD; monitor renal function daily COPD: Not in acute exacerbation; home medications resumed HTN: Controlled; on amlodipine, Toprol-XL CVA with consequent amnesia: Continue aspirin DVT prophylaxis: SQ heparin Full Code ESTIMATED LENGTH OF STAY: More than 2 midnights Medical Decision Making Complexity: Moderate Voice recognition software MModal Fluency Direct may have been used to dictate and transcribe this document. Help Desk Manager variances may occur. Despite proofreading, typographical errors may occur. Omid Beltran MD 02/28/2023 1:54 AM CONTENT SPECIALIST documented in this encounter Consult Notes * Brandon Ramirez MD - 02/28/2023 2:59 PM CSTAssociated Order(s): IP CONSULT TO NEPHROLOGY Nephrology Consult Reason for Consult: HD on MWF; needs HD today Requesting Provider: Dr. Mena Subjective Patient is a 72 y.o. female with chief complaint of chest pain. HPI: This is a patient who presented from an outside facility with complaints of chest pain. Noted to have a right rib fracture and also presumed bronchitis. She is not a good historian but apparently started hemodialysis approximately 1 month ago. She has a left IJ tunneled catheter for access. She underwent hemodialysis here earlier today. She is unclear who her digital marketing executive is but after a prolonged discussion was able to determine that she dialyzes at a [facility] dialysis unit in [place], [place]. She is had a CVA with memory impairment and right-sided deficit. Underlying COPD and hypertension Past Medical History: Diagnosis Date CHF (congestive heart failure) (CMS/HCC) (HCC) CKD (chronic kidney disease), stage IV (CMS/HCC) (HCC) COPD (chronic obstructive pulmonary disease) (HCC) Depression Hemiplegia and hemiparesis following cerebral infarction affecting right dominant side ([facility]) HLD (hyperlipidemia) Hypertension Memory deficit following other cerebrovascular disease Metabolic encephalopathy Osteoarthritis Polyneuropathy Stroke ([facility]) Past Surgical History: Procedure Laterality Date JOINT REPLACEMENT SHOULDER SURGERY Right TOTAL HIP ARTHROPLASTY Bilateral Medications Prior to Admission Medication Sig Dispense Refill Last Dose amLODIPine (NORVASC) 5 mg tablet Take 1 tablet (5 mg total) by mouth daily 02/27/2023 aspirin 81 mg enteric coated tablet Take 1 tablet (81 mg total) by mouth daily 02/27/2023 cholecalciferol (VITAMIN D-3) 5,000 unit tablet Take 1 tablet (5,000 Units total) by mouth daily 02/27/2023 furosemide (LASIX) 20 mg tablet Take 1 tablet (20 mg total) by mouth every other day 02/27/2023 gabapentin (NEURONTIN) 100 mg capsule Take 1 capsule (100 mg total) by mouth 3 (three) times a day 02/27/2023 HYDROcodone-acetaminophen (NORCO) 5-325 mg per tablet Take 1 tablet by mouth every 6 (six) hours asneeded for pain Unknown metoprolol XL (TOPROL-XL) 25 mg extended release tablet Take 1 tablet (25 mg total) by mouth daily 02/27/2023 omeprazole 20 mg tablet,delayed release (DR/EC) Take 1 tablet (20 mg total) by mouth daily 02/27/2023 No Known Allergies Social History Tobacco Use Smoking status: Former Types: Cigarettes Smokeless tobacco: None Substance and Sexual Activity Drug use: None Sexual activity: None Alcohol Use: Not on file No family history on file. Unable to obtain accurate family history from patient given her memory deficits Review of Systems: Constitutional: Negative for appetite change and fatigue. HENT: Negative. Eyes: Negative. Respiratory: Positive for reproducible chest pain Cardiovascular: Negative for chest pain, palpitations and leg swelling. Gastrointestinal: Negative for abdominal pain and nausea. Endocrine: Negative for polydipsia and polyuria. Genitourinary: Negative for decreased urine volume, difficulty urinating, dysuria, flank pain, frequency, hematuria and urgency. Musculoskeletal: Negative for joint swelling and myalgias. Skin: Negative for color change and rash. Allergic/Immunologic: Negative. Neurological: Negative for dizziness, weakness and light-headedness. Hematological: Negative. Psychiatric/Behavioral: Negative. Objective Vitals: 24hr Min/Max: Temp Min: 36.3 ??C (97.3 ??F) Max: 36.9 ??C (98.4 ??F) Pulse Min: 59 Max: 77 BP Min: 114/72 Max: 134/77 Resp Min: 18 Max: 22 SpO2 Min: 93 % Max: 99 % Most Recent: Vitals: 02/28/23 1358 BP: 119/66 Pulse: 64 Resp: 18 Temp: 36.3 ??C (97.3 ??F) SpO2: Physical Exam: Constitutional: Appears well-developed and well-nourished. Head: Normocephalic and atraumatic. Eyes: EOM are normal. Neck: Normal range of motion. Cardiovascular: Normal rate and regular rhythm. Pulmonary/Chest: Diminished breath sounds bilaterally Abdominal: Soft. Bowel sounds are normal. Musculoskeletal: Limited range of motion with 1+ bilateral lower extremity edema Neurological: Alert and oriented to person Skin: Skin is warm and dry. Psychiatric: Reportedly at baseline mental status Assessment /Plan Principal Problem: COPD with acute exacerbation (HCC) Active Problems: Closed fracture of one rib of right side Musculoskeletal chest pain Acute respiratory failure with hypoxia (CMS/HCC) (HCC) Mild bibasilar atelectasis Acute bronchitis 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) Primary hypertension ESRD on hemodialysis Presentation with chest pain with noted right rib fracture. ESRD recently started hemodialysis believed to be in [place], [place]. She is unclear who her digital marketing executive is. Labs unremarkable, hemodynamically stable. Underwent hemodialysis earlier today per her routine outpatient schedule. CONTENT SPECIALIST documented in this encounter Nursing Notes * Wali Kevin - 02/28/2023 2:33 PM CST 02/28/23 1358 Post-Hemodialysis Assessment Rinseback Volume (mL) 250 mL Dialyzer Clearance Lightly streaked Duration of Treatment (min) 210 minutes Patient Response to Treatment Patient tolerated treatment and met ordered UF goal. Net UF 2000 mL Post-Hemodialysis Comments Stable post HD. CONTENT SPECIALIST documented in this encounter Miscellaneous Notes * Incidental Note - Brandon Ramirez MD - 03/01/2023 10:13 AM CST Relatively hypotensive and discontinued amlodipine along with her homeopathic furosemide dose. If remains hospitalized will plan for hemodialysis here again tomorrow CONTENT SPECIALIST * Plan of Care - Mayra Rodarte RN - 03/01/2023 8:06 AM CST Goals: Clinical goals for this shift: Control pain, PT/OT, improved tolerance for activity, maintain pt comfort and safety Problem: Health Behavior: Goal: Understanding of discharge needs will improve Outcome: Progressing Problem: Lack of Knowledge: Goal: Ability to state ways to decrease the risk of falls will improve Outcome: Progressing Problem: Safety: Goal: Will remain free from falls Outcome: Progressing Goal: Will remain free from injury from falls Outcome: Progressing Goal: Will remain free from falls and injury in home environment Outcome: Progressing Problem: Activity: Goal: Risk for activity intolerance will decrease Outcome: Progressing Problem: Lack of Knowledge: Goal: Knowledge of diagnostic tests will improve Outcome: Progressing Goal: Knowledge of disease or condition will improve Outcome: Progressing Goal: Knowledge of safety precautions will improve Outcome: Progressing Goal: Knowledge of the prescribed therapeutic regimen will improve Outcome: Progressing Problem: Health Behavior: Goal: Ability to state signs and symptoms to report to health care provider will improve Outcome: Progressing Problem: Physical Regulation: Goal: Ability to maintain clinical measurements within normal limits will improve Outcome: Progressing Problem: Infection Risk: Goal: Will remain free from infection Outcome: Progressing Problem: Safety: Goal: Ability to remain free from injury will improve Outcome: Progressing Goal: Will remain free from falls Outcome: Progressing Problem: Self-Care: Goal: Ability to participate in self-care as condition permits will improve Outcome: Progressing Problem: Sensory: Goal: Pain level will decrease Outcome: Progressing Goal: Ability to develop a pain control plan will improve Outcome: Progressing Problem: Skin Integrity: Goal: Risk for impaired skin integrity will decrease Outcome: Progressing Problem: Tissue Perfusion: Goal: Risk factors for ineffective tissue perfusion will decrease Outcome: Progressing Problem: Activity: Goal: Ability to implement measures to reduce episodes of fatigue will improve Outcome: Progressing Goal: Will verbalize the importance of balancing activity with adequate rest periods Outcome: Progressing Problem: Health Behavior: Goal: Ability to manage health-related needs will improve Outcome: Progressing Problem: Respiratory: Goal: Ability to maintain a clear airway will improve Outcome: Progressing Goal: Levels of oxygenation will improve Outcome: Progressing Goal: Ability to maintain adequate ventilation will improve Outcome: Progressing Problem: Physical Regulation: Description: Module scope: This module is for use by staff nurses caring for patients who receive hemodialysis. - This module is not intended to be all- inclusive and has been created for use by a wide variety of institutions with a multiplicity of available resources, patient populations, and specific needs. Goal: Complications related to the disease process, condition or treatment will be avoided or minimized Outcome: Progressing Problem: Activity: Goal: Mobility will improve Outcome: Progressing Problem: Lack of Knowledge: Goal: Understanding of ways to prevent future skin breakdown will improve Outcome: Progressing Goal: Ability to identify appropriate dietary choices will improve Outcome: Progressing Problem: Nutritional: Goal: Dietary intake will improve Outcome: Progressing Goal: Ability to maintain a balanced intake and output will improve Outcome: Progressing Problem: Skin Integrity: Goal: Risk for impaired skin integrity will decrease Outcome: Progressing Goal: Ability to demonstrate warm and dry skin will improve Outcome: Progressing Goal: Circulation will improve to fullest extent possible Outcome: Progressing Problem: Lack of Knowledge: Goal: Ability to develop a pain control plan will improve Outcome: Progressing Goal: Ability to identify pain intensity on a pain scale and rate it consistently will improve Outcome: Progressing Goal: Ability to notify healthcare provider of pain before it becomes unmanageable or unbearable will improve Outcome: Progressing Problem: Medication: Goal: Satisfaction with pain management regimen will improve Outcome: Progressing Problem: Sensory: Goal: Ability to identify factors that increase the pain will improve Outcome: Progressing Goal: Pain level will decrease Outcome: Progressing CONTENT SPECIALIST * Plan of Julius - Juana Mckenzie RN - 03/01/2023 5:43 AM CST Goals: Clinical Goals for the Shift: stable vital signs, rest, comfort, safety Summary: Assessment of patient???s baseline is established at the beginning of the shift in flowsheets. Patient reassessed per order, unexpected findings and/or deviations from baseline are captured in flowsheets. Frequent safety checks and comfort rounds provided. Orders and/or nursing care completed as indicated. Patient monitored for response to interventions and treatments as documented in flowsheets. Plan of care discussed with patient/computer help desk representative, including as it relates to Principal Problem: COPD with acute exacerbation (HCC) Active Problems: Closed fracture of one rib of right side Musculoskeletal chest pain Acute respiratory failure with hypoxia ([facility]) (HCC) Mild bibasilar atelectasis Acute bronchitis Dependent on hemodialysis ([facility]) (HCC) Primary hypertension ESRD (end stage renal disease) on dialysis ([facility]) Patient progressing. Education provided includes Skin Breakdown Prevention/Treatment and Airway Clearance. Patient and/or computer help desk representative Verbalizes understanding. CONTENT SPECIALIST * Plan of Care - Maggie Walker RN - 02/28/2023 4:59 PM CST Problem: Safety: Goal: Will remain free from falls Outcome: Ongoing Goal: Will remain free from injury from falls Outcome: Ongoing Goal: Will remain free from falls and injury in home environment Outcome: Ongoing Problem: Lack of Knowledge: Goal: Knowledge of diagnostic tests will improve Outcome: Ongoing Goal: Knowledge of disease or condition will improve Outcome: Ongoing Goals: Clinical Goals for the Shift: stable vital signs, rest, comfort, safety CONTENT SPECIALIST * Initial Assessments - Lissette Anthony RN - 02/28/2023 3:53 PM CST CM Initial Assessment Interview Note Information Obtained From: Adult child (02/28/23 3000) Admission Source: ED Impression: Pt presented with c/o chest pain to OSH. From [facility]. Hx COPD, ESRD on HD. Cardio consulted. On 4L NC- no home use. Rib fx. Plan Includes: Pt from [facility] for SNF at this time. 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 SW following for pt return to SNF. Primary Source of Transportation: Does the patient need discharge transport arranged?: No (02/28/23 1550) Health Insurance Coverage: Medicare Prescription Coverage: Medicare Pharmacy: No Pharmacies Listed Primary Care Provider: No, Physician Prior to Admission: Primary Caregiver: Facility staff Support System: [facility] Home Care Services: No Durable Medical Equipment: Walker (wheeled) Living Arrangements: penitentiary Type of Residence: penitentiary Does patient wish to return to care facility?: Yes, wishes to return Facility contact name and number:: [facility] (02/28/231541) SDOH: Transportation: In the past 12 months, has lack of transportation kept you from medical appointments or from getting medications?: No In the past 12 months, has lack of transportation kept you from meetings, work, or from getting things needed for daily living?: No (02/28/231551) Financial Resource: How hard is it for you to pay for the very basics like food, housing, medical care, and heating?: Not very hard (02/28/231551) Housing: In the last 12 months, was there a time when you were not able to pay the mortgage or rent on time?: No In the last 12 months, how many places have you lived?: 2 In the last 12 months, was there a time when you did not have a steady place to sleep or slept in ashelter (including now)?: No (02/28/231552) Social Connections: In a typical week, how many times do you talk on the phone with family, friends, or neighbors?: More than three times a week How often do you get together with friends or relatives?: Twice a week How often do you attend protestant or alevism services?: Never Do you belong to any clubs or organizations such as protestant groups, unions, fraternal or athletic groups, or school groups?: No How often do you attend meetings of the clubs or organizations you belong to?: Never Are you , , , , never , or living with a partner?: (02/28/231551) Food Insecurity: Within the past 12 months, you worried that your food would run out before you got the money to buymore.: Never true Within the past 12 months, the food you bought just didn't last and you didn't have money to get more.: Never true (02/28/231552) Patient expects to be Discharged to: Group Home Facility, (02/28/23 1550) Patient's Identified Problem/Goal Problem: Ensure acute medical needs are met and that patient has a safe discharge plan. Goal: Secure a discharge plan that patient/family are agreeable with and ensure patient has continuum of care. Case management will follow for discharge planning and send referrals as needed. Lissette Anthony RN CONTENT SPECIALIST * ECIN Note - Juana Quach MSW - 02/28/2023 3:31 PM CST Patient Information: Patient Header Patient Information Patient Name: ALAYNA LAWRENCE Date of 1950 (72 years) Sex: Female Phone Numbers: Home: , Comprehensive Nursing Documentation Attending Provider: Jermaine Mena DO Allergies: No Known Allergies Isolation: None Infection: None Code Status: FULL Ht: 152.4 cm (5') Wt: 83.3 kg (183 lb 10.3 oz) Admission Cmt: None Principal Problem: COPD with acute exacerbation (HCC) [J44.1] Elopement Risk Date/Time Risk/Reason for Elopement User 02/28/23 0028 No risk ANB Intake/Output 02/28/23 0700 - 03/01/23 0659 [phone] Total Intake (ml) 870 -- -- 870 Output (ml) 2500 -- -- 2500 Net (ml) -1630 -- -- -1630 Patient Lines/Drains/Airways Status Active Airway / Central venous catheter / Drain / Epidural cathether / Intraosseous line / Peripherally inserted central catheter / Peripheral intravenous line / Arterial line Name Placement date Placement time Site Days Peripheral IV 02/27/23 20 G Anterior;Left Forearm 02/27/23 1800 Forearm less than 1 Active Wound Assessment Active Wound / Pressure ulcer / Abdullahi / Negative Pressure Wound / Incision None Haq Fall Risk Flowsheet Row Most Recent Value Prior Fall Event (Autopopulated from EMR) None found ............filed at 02/28/2023 0730 History of Falling 25 ............filed at 02/28/2023 07 Secondary Diagnosis 15 ............filed at 02/28/2023 07 Ambulatory Aids 0 ............filed at 02/28/2023 07 Intravenous Therapy/Heparin/Saline Lock 20 ............filed at 02/28/2023 07 Gait/Transferring 0 ............filed at 02/28/2023 0730 Mental Status 15 ............filed at 02/28/2023 0730 Haq Fall Risk Score 75 ............filed at 02/28/2023 0730 Vital Signs 02/27 0700 02/28 0659 02/28 0700 02/28 1531 Most Recent Temp (??C) 36.8 - 36.9 36.3 - 36.5 36.3 (97.3) 02/28 1358 Pulse 62 - 66 59 - 77 64 02/28 1358 Resp 22 18 18 02/28 1358 SpO2 (%) 93 - 95 96 - 99 99 02/28 1023 BP 114/72 - 119/66 117/77 - 134/77 119/66 02/28 1358 MAP (mmHg) 82 - 86 86 86 02/28 0732 Default Flowsheet Data (most recent) Endurance Tests No documentation. Nursing Nutrition None Nursing Mobility Activity 02/28 1400 Resting in bed 02/28 1209 Resting in bed 02/28 1100 Resting in bed 02/28 1027 Resting in bed 02/28 0900 Resting in bed 02/28 0822 Resting in bed 02/28 0730 Resting in bed 02/28 0538 Resting in bed 02/28 0400 Sleeping;Resting in bed 02/28 0300 Resting in bed;Sleeping (Comment: rise and fall of chest noted) 02/28 0200 Sleeping;Resting in bed 02/28 0100 Resting in bed 02/28 0038 Sleeping;Resting in bed Safe Patient Handling- Assistance & Equip Needed 02/28 1400 Assist of 1 02/28 1209 Assist of 1 02/28 1027 Assist of 1 02/28 0538 Assist of 2 02/28 0400 Assist of 2 02/28 0300 Assist of 1 02/28 0200 Assist of 2 02/28 0100 Assist of 1 02/28 0038 Maximum assist, patient does 25-49% Ambulation Response 02/28 0538 Tolerated fairly well 02/28 0400 Tolerated fairly well 02/28 0200 Tolerated fairly well 02/28 0038 Tolerated poorly Repositioned 02/28 1400 Turn self 02/28 1209 Turn self 02/28 1100 Turn self;Semi-fowlers;Left Side 02/28 1027 Turn self 02/28 0822 Turn self;Semi-fowlers 02/28 0730 Turn self;Semi-fowlers;Right Side 02/28 0538 Right Side 02/28 0400 Semi-fowlers 02/28 0300 Right Side 02/28 0200 Right Side;Pillow support 02/28 0100 Turn self;Semi-fowlers 02/28 0038 Turn self;Semi-fowlers Head of Bed Elevated 02/28 1400 HOB 30 02/28 1209 HOB 30 02/28 1100 HOB 30 02/28 1027 HOB 30 02/28 0900 HOB 30 02/28 0822 HOB 30 02/28 0730 HOB 30 02/28 0538 HOB 30 02/28 0400 HOB 30 02/28 0300 HOB 30 02/28 0200 HOB 30 02/28 0100 HOB 30 02/28 0038 HOB 45 Heels/Feet 02/28 0538 Heels elevated off bed 02/28 0400 Heels elevated off bed 02/28 0300 Heels elevated off bed 02/28 0200 Heels elevated off bed 02/28 0100 Heels elevated off bed Range of Motion Interventions 02/28 0730 Active;All extremities 02/28 0538 Active;All extremities 02/28 0400 Active;All extremities 02/28 0200 Active;All extremities 02/28 0038 Active;All extremities Mechanical Compression Status 02/28 0800 On , Meds and Admin Active Only All Meds/Most Recent Administrations ipratropium-albuteroL (DUO-NEB) 0.5-2.5 mg/3 mL nebulizer solution 3 mL [[id number]] Ordering Provider: Omid Beltran MD Status: Verified Ordered On: 02/28/23120 Start: 02/28/23119 Ordered Dose (Remaining/Total): 3 mL (--/--) Route: nebulization Frequency: Every 4 hours PRN (direct response consultant) Ordered Rate/Order Duration: -- / -- (No admins scheduled or recorded for this medication) sodium chloride 0.9% flush 0.5-20 mL [[id number]] Ordering Provider: Omid Beltran MD Status: Verified Ordered On: 02/28/23151 Start: 02/28/23 06 Ordered Dose (Remaining/Total): 0.5-20 mL (--/--) Route: intra-catheter Frequency: Every 8 hours scheduled Ordered Rate/Order Duration: -- / -- Admin Instructions: Flush volume based on line type and size. Timestamps Action Dose Route Other Information 02/28/23 0540 Given 10 mL intra-catheter Performed by: Juana Mckenzie RN Scanned Package: [id number] sodium chloride 0.9% flush 0.5-20 mL [[id number]] Ordering Provider: Omid Beltran MD Status: Verified Ordered On: 02/28/23151 Start: 02/28/23149 Ordered Dose (Remaining/Total): 0.5-20 mL (--/--) Route: intra-catheter Frequency: As needed Ordered Rate/Order Duration: -- / -- Admin Instructions: Flush volume based on line type and size. Flush before and after each use. (No admins scheduled or recorded for this medication) Carrier Fluids for Secondary Infusion - 0.9% Sodium Chloride [[id number]] Ordering Provider: Omid Beltran MD Status: Verified Ordered On: 02/28/23151 Start: 02/28/23149 Ordered Dose (Remaining/Total): 30 mL (--/--) Route: intravenous Frequency: As needed Ordered Rate/Order Duration: -- / -- Admin Instructions: 0-250 ml/hr to flush line after IV infusions when no maintenance IV ordered. Infuse 30mL at the same rate as the secondary infusion. Run as primary IV, not intended for KVO. (No admins scheduled or recorded for this medication) ondansetron ODT (ZOFRAN-ODT) disintegrating tablet 4 mg [[id number]] Ordering Provider: Omid Beltran MD Status: Verified Ordered On: 02/28/23151 Start: 02/28/23149 Ordered Dose (Remaining/Total): 4 mg (--/--) Route: oral Frequency: Every 6 hours PRN Ordered Rate/Order Duration: -- / -- (No admins scheduled or recorded for this medication) ondansetron (ZOFRAN) injection 4 mg [[id number]] Ordering Provider: Omid Beltran MD Status: Verified Ordered On: 02/28/23151 Start: 02/28/23149 Ordered Dose (Remaining/Total): 4 mg (--/--) Route: intravenous Frequency: Every 6 hours PRN Ordered Rate/Order Duration: -- / 2 Minutes (No admins scheduled or recorded for this medication) docusate sodium (COLACE) capsule 100 mg [[id number]] Ordering Provider: Omid Beltran MD Status: Verified Ordered On: 02/28/23151 Start: 02/28/23149 Ordered Dose (Remaining/Total): 100 mg (--/--) Route: oral Frequency: 2 times daily PRN Ordered Rate/Order Duration: -- / -- (No admins scheduled or recorded for this medication) heparin 5,000 unit/mL injection 5,000 Units [[id number]] Ordering Provider: Omid Beltran MD Status: Dispensed Ordered On: 02/28/23151 Start: 02/28/23 06 Ordered Dose (Remaining/Total): 5,000 Units (--/--) Route: subcutaneous Frequency: Every 8 hours scheduled Ordered Rate/Order Duration: -- / -- Timestamps Action Dose Route / Site Other Information 02/28/23 05 Given 5,000 Units subcutaneous Right Lower Abdomen Performed by: Juana Mckenzie RN Scanned Package: [id number] acetaminophen (TYLENOL) tablet 650 mg [[id number]] Ordering Provider: Omid Beltran MD Status: Verified Ordered On: 02/28/23151 Start: 02/28/23150 Ordered Dose (Remaining/Total): 650 mg (--/--) Route: oral Frequency: Every 4 hours PRN Ordered Rate/Order Duration: -- / -- (No admins scheduled or recorded for this medication) lidocaine (LIDODERM) 5 % patch 1 patch [[id number]] Ordering Provider: Omid Beltran MD Status: Dispensed Ordered On: 02/28/23151 Start: 02/28/23229 Ordered Dose (Remaining/Total): 1 patch (--/--) Route: transdermal Frequency: Every 24 hours Ordered Rate/Order Duration: -- / 12 Hours Admin Instructions: Do not cover the holes on the top side of the patch. Question Answer Comment Apply to affected area:: other right lower rib Timestamps Action Dose / Duration Route / Site Other Information 02/28/23225 Medication Applied 1 patch 12 Hours transdermal Other (Comment) Performed by: Juana Mckenzie RN Comments: Right side Scanned Package: [id number] ramelteon (ROZEREM) tablet 8 mg [[id number]] Ordering Provider: Omid Beltran MD Status: Verified Ordered On: 02/28/23151 Start: 02/28/23151 Ordered Dose (Remaining/Total): 8 mg (--/--) Route: oral Frequency: Nightly PRN Ordered Rate/Order Duration: -- / -- (No admins scheduled or recorded for this medication) amLODIPine (NORVASC) tablet 5 mg [[id number]] Ordering Provider: Omid Beltran MD Status: Verified Ordered On: 02/28/23246 Start: 02/28/23899 Ordered Dose (Remaining/Total): 5 mg (--/--) Route: oral Frequency: Daily Ordered Rate/Order Duration: -- / -- (No admins scheduled or recorded for this medication) aspirin enteric coated tablet 81 mg [[id number]] Ordering Provider: Omid Beltran MD Status: Verified Ordered On: 02/28/23246 Start: 02/28/23899 Ordered Dose (Remaining/Total): 81 mg (--/--) Route: oral Frequency: Daily Ordered Rate/Order Duration: -- / -- Admin Instructions: Do not crush, chew, cut, dissolve, open or otherwise manipulate tablet/capsule. (No admins scheduled or recorded for this medication) cholecalciferol (VITAMIN D-3) capsule 5,000 Units [[id number]] Ordering Provider: Omid Beltran MD Status: Verified Ordered On: 02/28/23246 Start: 02/28/23899 Ordered Dose (Remaining/Total): 5,000 Units (--/--) Route: oral Frequency: Daily Ordered Rate/Order Duration: -- / -- Admin Instructions: Each capsule contains 5,000 units (125 mcg) of cholecalciferol, (No admins scheduled or recorded for this medication) furosemide (LASIX) tablet 20 mg [[id number]] Ordering Provider: Omid Beltran MD Status: Verified Ordered On: 02/28/23246 Start: 03/01/23899 Ordered Dose (Remaining/Total): 20 mg (--/--) Route: oral Frequency: Every other day Ordered Rate/Order Duration: -- / -- (No admins scheduled or recorded for this medication) gabapentin (NEURONTIN) capsule 100 mg [[id number]] Ordering Provider: Omid Beltran MD Status: Verified Ordered On: 02/28/23246 Start: 02/28/23899 Ordered Dose (Remaining/Total): 100 mg (--/--) Route: oral Frequency: 3 times daily Ordered Rate/Order Duration: -- / -- (No admins scheduled or recorded for this medication) metoprolol XL (TOPROL-XL) extended release tablet 25 mg [[id number]] Ordering Provider: Omid Beltran MD Status: Verified Ordered On: 02/28/23246 Start: 02/28/23899 Ordered Dose (Remaining/Total): 25 mg (--/--) Route: oral Frequency: Daily Ordered Rate/Order Duration: -- / -- Admin Instructions: Tablets that are scored may be split, but do not crush, chew, dissolve, open or otherwise manipulate tablet/capsule. (No admins scheduled or recorded for this medication) pantoprazole DR (PROTONIX) extended release tablet 40 mg [[id number]] Ordering Provider: Omid Beltran MD Status: Verified Ordered On: 02/28/23246 Start: 02/28/23 0900 Ordered Dose (Remaining/Total): 40 mg (--/--) Route: oral Frequency: Daily Ordered Rate/Order Duration: -- / -- Admin Instructions: Do not crush, chew, cut, dissolve, open or otherwise manipulate tablet/capsule. (No admins scheduled or recorded for this medication) HYDROcodone-acetaminophen (NORCO) 5-325 mg per tablet 1 tablet [[id number]] Ordering Provider: Omid Beltran MD Status: Dispensed Ordered On: 02/28/23246 Start: 02/28/23245 Ordered Dose (Remaining/Total): 1 tablet (--/--) Route: oral Frequency: Every 6 hours PRN Ordered Rate/Order Duration: -- / -- Timestamps Action Dose Route Other Information 02/28/23 1146 Given 1 tablet oral Performed by: Maggie Walker RN Scanned Package: [id number] azithromycin (ZITHROMAX) tablet 250 mg [[id number]] Ordering Provider: Omid Beltran MD Status: Verified Ordered On: 02/28/23246 Starts/Ends: 02/28/23 170 - 03/04/23 1659 Ordered Dose (Remaining/Total): 250 mg (4/4) Route: oral Frequency: Daily Ordered Rate/Order Duration: -- / -- (No admins scheduled or recorded for this medication) heparin 1,000 unit/mL injection 1.5-6.9 mL [[id number]] Ordering Provider: Sea Patel MD Status: Completed (Past End Date/Time) Ordered On: 02/28/23 1349 Starts/Ends: 02/28/23 1430 - 02/28/23 1355 Ordered Dose (Remaining/Total): 1.5-6.9 mL (0/1) Route: intra-catheter Frequency: Once Ordered Rate/Order Duration: -- / -- Admin Instructions: Indwell volume of catheter lumens post treatment. Give volume based upon barrel scraper's recommendation (usual range 1.2 - 3 mL) in each lumen. 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 She was found to have acute rib fracture of 7th R rib w/ CT also showing signs of bronchitis. HS troponin negative at outside facility w/ EKG negative for ischemic changes and likely source of chest pain being fracture. Patient was found to have new O2 requirement of 2-3L NC. She was started on azithromycin. Patient ultimately transferred from outside facility because they could not facilitate HD. Nephrology consulted this AM and plan to see. Patient seen this AM and appears comfortable and reports improvement in symptoms compared to prior to admission. Patient updated on plan for today. All questions answered. Continue w/ current care plan, full progress note to follow tomorrow. Jermaine Mena DO CONTENT SPECIALIST * Plan of Care - Juana Mckenzie, RN - 02/28/2023 3:13 AM CST Goals: Clinical Goals for the Shift: stable vital signs, rest, comfort, safety Summary: Patient arrive to unit via EMS from [facility]. Assessment of patient???s baseline is established on admission shift in flowsheets. Patient reassessed per order, unexpected findings and/or deviations from baseline are captured in flowsheets. Frequent safety checks and comfort rounds provided. Orders and/or nursing care completed as indicated. Patient monitored for response to interventions and treatments as documented in flowsheets. Plan of care discussed with patient/computer help desk representative, including as it relates to Principal Problem: COPD with acute exacerbation (HCC) Active Problems: Closed fracture of one rib of right side Musculoskeletal chest pain Acute respiratory failure with hypoxia (CMS/HCC) (HCC) Mild bibasilar atelectasis Acute bronchitis 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) Primary hypertension Patient progressing. Education provided includes Fall Prevention, Pain Management, Skin Breakdown Prevention/Treatment, and Airway Clearance. Patient and/or computer help desk representative Verbalizes understanding. CONTENT SPECIALIST documented in this encounter Plan of Treatment Not on file documented as of this encounter Procedures Procedure Name Priority Date/Time Associated Diagnosis Comments EGFR Routine 03/01/2023 4:40 AM WEB CONTENT SPECIALIST DIFFERENTIAL AUTO Routine 03/01/2023 4:4 0 AM WEB CONTENT SPECIALIST CBC WITH AUTO DIFFERENTIAL Routine 03/01/2023 4:40 AM WEB CONTENT SPECIALIST BASIC METABOLIC PANEL Routine 03/01/2023 4:40 AM WEB CONTENT SPECIALIST HEPATITIS B SURFACE ANTIBODY (IMMUNE STATUS) STAT 02/28/2023 1:27 PM WEB CONTENT SPECIALIST HEPATITIS B SURFACE ANTIGEN STAT 02/28/2023 1:27 PM WEB CONTENT SPECIALIST HEMODIALYSIS Routine 02/28/2023 7:27 AM WEB CONTENT SPECIALIST EGFR Routine 02/28/2023 5:01 AM WEB CONTENT SPECIALIST DIFFERENTIAL AUTO Routine 02/28/2023 5:0 1 AM WEB CONTENT SPECIALIST CBC WITH AUTO DIFFERENTIAL Routine 02/28/2023 5:01 AM WEB CONTENT SPECIALIST BASIC METABOLIC PANEL Routine 02/28/2023 5:01 AM WEB CONTENT SPECIALIST documented in this encounter Results * eGFR (03/01/2023 4:40 AM WEB CONTENT SPECIALIST) Pathologist [facility] eGFR 10 mL/min/1. 73 m2 ALEXANDER SOLIMAN Comment: Interpretive Data Reference Interval Normal ?>/= [...] Current interpretive data was last reviewed 2021. Testing performed by: [facility], [address] [place] [address]., [id number] Blood 03/01/2023 4:40 AM WEB CONTENT SPECIALIST 03/01/2023 5:27 AM WEB CONTENT SPECIALIST us Jermaine Mena DO LAB BLOOD ORDERABLES Final Resul t ALEXANDER [address] [facility] [place] [address] * (ABNORMAL) Differential, auto (03/01/2023 4:40 AM WEB CONTENT SPECIALIST) [facility] [address] Neutrophil abs 5.8 1.5 - 6.5 K/cumm [facility] Comment:Testing performed by : [address], [place]., [address] Imm gran abs 0.0 0.0 - 0.1 K/cumm [facility] Comment:Testing performed by : [address], [place]., [address] Lymphocyte abs 2.2 0.8 - 3.3 K/cumm [facility] Comment:Testing performed by : [address] [address] Monocyte abs 0.9(H) 0.2 - 0.8 K/cumm [facility] Comment:Testing performed by : [address], [place]., [address] Eosinophil abs 0.2 0.0 - 0.5 K/cumm [facility] Comment:Testing performed by : [address] [address] Basophil abs 0.1 0.0 - 0.1 K/cumm [facility] Comment:Testing performed by : [address] [address] Neutrophil pct 63.3 % [facility] Comment: Interpretive Data Percent cell count reference ranges are not reported, since discordance with absolute values may lead to misinterpretation of CBC data. Current Interpretive Data was last revised on 2017. Testing performed by: [address] [address] Imm gran pct 0.3 % [facility] Comment: Interpretive Data Percent cell count reference ranges are not reported, since discordance with absolute values may lead to misinterpretation of CBC data. Current Interpretive Data was last revised on 2017. Testing performed by: [address] [address] Lymphocyte pct 23.8 % [facility] Comment: Interpretive Data Percent cell count reference ranges are not reported, since discordance with absolute values may lead to misinterpretation of CBC data. Current Interpretive Data was last revised on 2017. Testing performed by: [address] [address] Monocyte pct 9.5 % [facility] Comment: Interpretive Data Percent cell count reference ranges are not reported, since discordance with absolute values may lead to misinterpretation of CBC data. Current Interpretive Data was last revised on 2017. Testing performed by: [address] [address] Eosinophil pct 2.3 % ALEXANDER Comment: Interpretive Data Percent cell count reference ranges are not reported, since discordance with absolute values may lead to misinterpretation of CBC data. Current Interpretive Data was last revised on 2017. Testing performed by: [address] [address] Basophil pct 0.8 % ALEXANDER Comment: Interpretive Data Percent cell count reference ranges are not reported, since discordance with absolute values may lead to misinterpretation of CBC data. Current Interpretive Data was last revised on 2017. Testing performed by: [address] [address] Blood 03/01/2023 4:40 AM WEB CONTENT SPECIALIST 03/01/2023 5:27 AM WEB CONTENT SPECIALIST us Saim Mena DO LAB BLOOD ORDERABLES Final Resul t ALEXANDER [address] [facility] [place] [address] * (ABNORMAL) Basic metabolic panel (03/01/2023 4:40 AM WEB CONTENT SPECIALIST) Sodium 134(L) 135 - 145 mmol/L ALEXANDER Comment:Testing performed by : [address] [address] Potassium, pl 4.0 3.3 - 4.9 mmol/L ALEXANDER Comment:Testing performed by : [address] [address] Chloride 93(L) 97 - 110 mmol/L ALEXANDER Comment:Testing performed by : [address] [address] CO2 25 22 - 32 mmol/L ALEXANDER Comment:Testing performed by : [address] [address] Anion gap 16(H) 2 - 15 mmol/L ALEXANDER SOLIMAN Comment:Testing performed by : [address] [address] BUN 48(H) 6 - 25 mg/dL ALEXANDER Comment:Testing performed by : [address] [address] Creatinine 4.30(H) 0.60 - 1.10 mg/dL ALEXANDER Comment:Testing performed by : [address] [address] Glucose 108 70 - 199 mg/dL ALEXANDER Comment: Interpretive Data Fasting glucose >/= 126 [...] Current interpretive data was last revised 2022. Testing performed by: [address] [address] Calcium 9.5 8.5 - 10.3 mg/dL ALEXANDER Comment:Testing performed by : [address] [address] Blood 03/01/2023 4:40 AM WEB CONTENT SPECIALIST 03/01/2023 5:27 AM WEB CONTENT SPECIALIST us Saim Mena DO LAB BLOOD ORDERABLES Final Resul t ALEXANDER [address] [facility] [place] [address] * (ABNORMAL) CBC with auto differential (03/01/2023 4:40 AM WEB CONTENT SPECIALIST) [facility] [address] WBC 9.1 3.8 - 9.9 K/cumm ALEXANDER SOLIMAN Comment:Testing performed by : [address] [address] Hgb 10.9(L) 11.9 - 15.5 g/dL ALEXANDER Comment: Interpretive Data A reference range for this assay has not been established for patients with an unknown legal sex. Please refer to the laboratory test catalog for established sex-specific reference intervals. Current interpretive data was last revised on 2022. Testing performed by: [address] [address] Hct 33.5(L) 35.6 - 45.5 % ALEXANDER Comment: Interpretive Data A reference range for this assay has not been established for patients with an unknown legal sex. Please refer to the laboratory test catalog for established sex-specific reference intervals. Current interpretive data was last revised on 2022. Testing performed by: [address] [address] Plt 197 150 - 400 K/cumm ALEXANDER Comment:Testing performed by : [address] [address] MPV 10.6 9.1 - 12.3 fL ALEXANDER Comment:Testing performed by : [address] [address] RBC 3.56(L) 3.90 - 5.20 M/cumm [facility] Comment: Interpretive Data A reference range for this assay has not been established for patients with an unknown legal sex. Please refer to the laboratory test catalog for established sex-specific reference intervals. Current interpretive data was last revised on 2022. Testing performed by: [address] [address] MCV 94.1 81.3 - 96.4 fL ALEXANDER Comment:Testing performed by : [address] [address] MCH 30.6 27.1 - 33.3 pg ALEXANDER Comment:Testing performed by : [address] [address] MCHC 32.5 32.3 - 35.7 g/dL ALEXANDER Comment:Testing performed by : [address] [address] RDW CV 13.8 11.1 - 14.9 % ALEXANDER Comment:Testing performed by : [address] [address] RDW SD 47.2 35.7 - 48.1 fL ALEXANDER Comment:Testing performed by : [address] [address] NRBC abs 0.00 0.00 - 0.01 K/cumm ALEXANDER Comment:Testing performed by : [address] [address] Blood 03/01/2023 4:40 AM WEB CONTENT SPECIALIST 03/01/2023 5:27 AM WEB CONTENT SPECIALIST Jermaine Mena DO LAB BLOOD ORDERABLES Final Resul t Performing Organization Address City/[facility] Co de Phone Number [address] [email or web address] [place] [address] * Hepatitis B Surface Antigen Blood (02/28/2023 1:27 PM WEB CONTENT SPECIALIST) HepBsAg Nonreactive Nonreactive [facility] Blood 02/28/2023 1:27 PM WEB CONTENT SPECIALIST 02/28/2023 4:51 PM WEB CONTENT SPECIALIST Brandon Ramirez MD LAB MICROBIOLOGY - GENERAL OR DERABLES Final Result Performing Organization Address [facility] Co de Phone Number [address] [address] * Hepatitis B surface antibody (immune status) Blood (02/28/2023 1:27 PM WEB CONTENT SPECIALIST) HBsAb (immune status) Equivocal [facility] Comment: Interpretive Data Nonreactive: This result is consistent with a lack of immunity to Hepatitis B Virus when used in the setting of routine screening. Equivocal: The immune status of the individual should be further assessed, if appropriate, after consideration of clinical status, risk factors, and additional diagnostic information. Reactive: This result is consistent with immunity to Hepatitis B Virus when used in the setting of routine screening. Current interpretive data was last revised on 19. Blood 02/28/2023 1:27 PM WEB CONTENT SPECIALIST 02/28/2023 4:51 PM WEB CONTENT SPECIALIST us Brandon Ramirez MD LAB MICROBIOLOGY - GENERAL OR DERABLES Final Result ALEXANDER SOLIMAN [address] [facility] [place] [address] * eGFR (02/28/2023 5:01 AM WEB CONTENT SPECIALIST) eGFR 10 mL/min/1. 73 m2 ALEXANDER SOLIMAN Comment: Interpretive Data Reference Interval Normal ?>/= [...] Current interpretive data was last reviewed 2021. Testing performed by: [facility], [address] [place] [address], [place]., [address] Blood 02/28/2023 5:01 AM WEB CONTENT SPECIALIST 02/28/2023 6:06 AM WEB CONTENT SPECIALIST us Omid Beltran MD LAB BLOOD ORDERABL ES Final Result ALEXANDER [address] [facility] Department [place] [address] * (ABNORMAL) Differential, auto (02/28/2023 5:01 AM WEB CONTENT SPECIALIST) Neutrophil abs 5.4 1.5 - 6.5 K/cumm ALEXANDER Comment:Testing performed by : [address] [address] Imm gran abs 0.0 0.0 - 0.1 K/cumm ALEXANDER Comment:Testing performed by : [address] [address] Lymphocyte abs 0.5(L) 0.8 - 3.3 K/cumm ALEXANDER Comment:Testing performed by : [address] [address] Monocyte abs 0.1(L) 0.2 - 0.8 K/cumm ALEXANDER Comment:Testing performed by : [address] [address] Eosinophil abs 0.0 0.0 - 0.5 K/cumm ALEXANDER Comment:Testing performed by : [address] [address] Basophil abs 0.0 0.0 - 0.1 K/cumm ALEXANDER Comment:Testing performed by : [address] [address] Neutrophil pct 89.3 % ALEXANDER Comment: Interpretive Data Percent cell count reference ranges are not reported, since discordance with absolute values may lead to misinterpretation of CBC data. Current Interpretive Data was last revised on 2017. Testing performed by: [address] [address] Imm gran pct 0.2 % ALEXANDER Comment: Interpretive Data Percent cell count reference ranges are not reported, since discordance with absolute values may lead to misinterpretation of CBC data. Current Interpretive Data was last revised on 2017. Testing performed by: [address] [address] Lymphocyte pct 8.8 % [facility] Comment: Interpretive Data Percent cell count reference ranges are not reported, since discordance with absolute values may lead to misinterpretation of CBC data. Current Interpretive Data was last revised on 2017. Testing performed by: [address] [address] Monocyte pct 1.3 % LAEXANDER Comment: Interpretive Data Percent cell count reference ranges are not reported, since discordance with absolute values may lead to misinterpretation of CBC data. Current Interpretive Data was last revised on 2017. Testing performed by: [address] [address] Eosinophil pct 0.2 % ALEXANDER Comment: Interpretive Data Percent cell count reference ranges are not reported, since discordance with absolute values may lead to misinterpretation of CBC data. Current Interpretive Data was last revised on 2017. Testing performed by: [address] [address] Basophil pct 0.2 % ALEXANDER Comment: Interpretive Data Percent cell count reference ranges are not reported, since discordance with absolute values may lead to misinterpretation of CBC data. Current Interpretive Data was last revised on 2017. Testing performed by: [address] [address] Blood 02/28/2023 5:01 AM WEB CONTENT SPECIALIST 02/28/2023 6:01 AM WEB CONTENT SPECIALIST Omid Beltran MD LAB BLOOD ORDERABL ES Final Result ALEXANDER [address] [facility] Department of Laboratories [place], [place] [id number] * (ABNORMAL) CBC with auto differential (02/28/2023 5:01 AM WEB CONTENT SPECIALIST) [facility] [address] WBC 6.0 3.8 - 9.9 K/cumm ALEXANDER SOLIMAN Comment:Testing performed by : [address] [address] Hgb 11.9 11.9 - 15.5 g/dL ALEXANDER SOLIMAN Comment: Interpretive Data A reference range for this assay has not been established for patients with an unknown legal sex. Please refer to the laboratory test catalog for established sex-specific reference intervals. Current interpretive data was last revised on 2022. Testing performed by: [address] [address] Hct 36.6 35.6 - 45.5 % ALEXANDER Comment: Interpretive Data A reference range for this assay has not been established for patients with an unknown legal sex. Please refer to the laboratory test catalog for established sex-specific reference intervals. Current interpretive data was last revised on 2022. Testing performed by: [address] [address] Plt 232 150 - 400 K/cumm ALEXANDER Comment:Testing performed by : [address] [address] MPV 10.7 9.1 - 12.3 fL ALEXANDER Comment:Testing performed by : [address] [address] RBC 3.78(L) 3.90 - 5.20 M/cumm ALEXANDER Comment: Interpretive Data A reference range for this assay has not been established for patients with an unknown legal sex. Please refer to the laboratory test catalog for established sex-specific reference intervals. Current interpretive data was last revised on 2022. Testing performed by: [address] [address] MCV 96.8(H) 81.3 - 96.4 fL ALEXANDER Comment:Testing performed by : [address] [address] MCH 31.5 27.1 - 33.3 pg ALEXANDER Comment:Testing performed by : [address] [address] MCHC 32.5 32.3 - 35.7 g/dL ALEXANDER Comment:Testing performed by : [address] [address] RDW CV 13.6 11.1 - 14.9 % ALEXANDER Comment:Testing performed by : [address] [address] RDW SD 48.4(H) 35.7 - 48.1 fL ALEXANDER SOLIMAN Comment:Testing performed by : [address] [address] NRBC abs 0.00 0.00 - 0.01 K/cumm ALEXANDER SOLIMAN Comment:Testing performed by : [address] [address] Blood 02/28/2023 5:01 AM WEB CONTENT SPECIALIST 02/28/2023 6:01 AM WEB CONTENT SPECIALIST us Omid Beltran MD LAB BLOOD ORDERABL ES Final Result ALEXANDER SOLIMAN [address] [facility] [place] [address] * (ABNORMAL) Basic metabolic panel (02/28/2023 5:01 AM WEB CONTENT SPECIALIST) Sodium 139 135 - 145 mmol/L ALEXANDER SOLIMAN Comment:Testing performed by : [address], [address] Potassium, pl 4.6 3.3 - 4.9 mmol/L ALEXANDER SOLIMAN Comment:Testing performed by : [address] [address] Chloride 101 97 - 110 mmol/L ALEXANDER SOLIMAN Comment:Testing performed by : [address] [address] CO2 21(L) 22 - 32 mmol/L ALEXANDER SOLIMAN Comment:Testing performed by : [address] [address] Anion gap 17(H) 2 - 15 mmol/L ALEXANDER Comment:Testing performed by : [address], [address] BUN 47(H) 6 - 25 mg/dL ALEXANDER SOLIMAN Comment:Testing performed by : [address] [address] Creatinine 4.60(H) 0.60 - 1.10 mg/dL ALEXANDER SOLIMAN Comment:Testing performed by : [address], [address] Glucose 154 70 - 199 mg/dL ALEXANDER SOLIMAN Comment: Interpretive Data Fasting glucose >/= 126 [...] Current interpretive data was last revised 2022. Testing performed by: [facility], [address] [place] [address]., [address] Calcium 10.1 8.5 - 10.3 mg/dL ALEXANDER SOLIMAN Comment:Testing performed by : [facility], [address] [place] [address]., [address] Blood 02/28/2023 5:01 AM WEB CONTENT SPECIALIST 02/28/2023 6:06 AM WEB CONTENT SPECIALIST Omid Beltran MD LAB BLOOD ORDERABL ES Final Result ALEXANDER SOLIMAN [address] [facility] [place] [address] documented in this encounter Visit Diagnoses Diagnosis COPD with acute exacerbation (HCC)- Primary Closed fracture of one rib of right side, initial encounter Musculoskeletal chest pain Other chest pain Acute respiratory failure with hypoxia (CMS/HCC) (HCC) Mild bibasilar atelectasis Acute bronchitis, unspecified organism 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) Primary hypertension Unspecified essential hypertension ESRD (end stage renal disease) on dialysis (HCC) [N18.6, Z99.2] End stage renal disease Closed fracture of one rib of right side Musculoskeletal chest pain Other chest pain Acute respiratory failure with hypoxia (CMS/HCC) (HCC) Mild bibasilar atelectasis Acute bronchitis 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) Primary hypertension Unspecified essential hypertension ESRD (end stage renal disease) on dialysis (HCC) End stage renal disease documented in this encounter Admitting Diagnoses Diagnosis COPD with acute exacerbation (HCC) documented in this encounter Administered Medications Inactive Administered Medications - up to 3 most recent administrations Medication Order MAR Action Action Date Dose Rate Site acetaminophen (TYLENOL) tablet 650 mg 650 mg, oral, Every 4 hours PRN, 1st line for pain, fever, fever greater than 38.3 C, Starting on Sun02/28/23 at 0151, Indications: Fever, PainIndications:Fever,Pain Given 02/28/2023 9:18 PM WEB CONTENT SPECIALIST 650 mg amLODIPine (NORVASC) tablet 5 mg 5 mg, oral, Daily, First dose on Sun02/28/23 at 0900, On hold since Joan 03/01/2023 at 1003 until manually unheld Given 03/01/2023 8:06 AM WEB CONTENT SPECIALIST 5 mg aspirin enteric coated tablet 81 mg 81 mg, oral, Daily, First dose on Sun02/28/23 at 0900, Do not crush, chew, cut, dissolve, open or otherwise manipulate tablet/capsule. Given 03/01/2023 8:06 AM WEB CONTENT SPECIALIST 81 mg azithromycin (ZITHROMAX) tablet 250 mg 250 mg, oral, Daily, First dose on Sun02/28/23 at 1700, For 4 doses, Indications: Upper Respiratory/HEENT InfectionIndications:Upper Respiratory/HEENT Infection Given 02/28/2023 3:37 PM WEB CONTENT SPECIALIST 250 mg Carrier Fluids for Secondary Infusion - 0.9% Sodium Chloride 30 mL, intravenous, As needed, For priming tubing and/or flushing, Starting on Sun02/28/23 at 0150, 0-250 ml/hr to flush line after IV infusions when no maintenance IV ordered. Infuse 30mL at the same rate as the secondary infusion. Run as primary IV, not intended for KVO. cholecalciferol (VITAMIN D-3) tablet 5,000 Units 5,000 Units, oral, Daily, First dose on Sun02/28/23 at 0900, Each tablet contains 5,000 units (125 mcg) of cholecalciferol. Given 03/01/2023 8:06 AM WEB CONTENT SPECIALIST 5,000 Units docusate sodium (COLACE) capsule 100 mg 100 mg, oral, 2 times daily PRN, constipation, Starting on Sun02/28/23 at 0150, Indications: constipationIndications:const ipation Given 02/28/2023 9:18 PM WEB CONTENT SPECIALIST 100 mg furosemide (LASIX) tablet 20 mg 20 mg, oral, Every other day, First dose on Joan 03/01/23 at 0900, Indications: EdemaIndications:Edema Given 03/01/2023 8:06 AM WEB CONTENT SPECIALIST 20 mg gabapentin (NEURONTIN) capsule 100 mg 100 mg, oral, 3 times daily, First dose on 02/28/23 at 0900, Indications: Neuropathic PainIndications:Neuropathic Pain Given 03/01/2023 8:06 AM WEB CONTENT SPECIALIST 100 mg Given 02/28/2023 9:18 PM WEB CONTENT SPECIALIST 100 mg Given 02/28/2023 3:37 PM WEB CONTENT SPECIALIST 100 mg heparin 1,000 unit/mL injection 1.5-6.9 mL 1.5-6.9 mL, intra-catheter, Once, On Sun02/28/23 at 1430, For 1 dose, Dialysis, [place] volume of catheter lumens post treatment. Give volume based upon barrel scraper's recommendation (usual range 1.2 - 3 mL) in each lumen., Indications: prevent clotting in catheterIndications:prevent clotting in catheter Given 02/28/2023 1:55 PM WEB CONTENT SPECIALIST 4.8 mL heparin 5,000 unit/mL injection 5,000 Units 5,000 Units, subcutaneous, Every 8 hours scheduled, First dose on Sun02/28/23 at 0600, Indications: Deep Vein Thrombosis PreventionIndications:Deep Vein Thrombosis Prevention Given 03/01/2023 2:08 PM WEB CONTENT SPECIALIST 5,000 Units Left Upper Abdomen Given 03/01/2023 5:50 AM WEB CONTENT SPECIALIST 5,000 Units R ight Lower Abdomen Given 02/28/2023 9:18 PM WEB CONTENT SPECIALIST 5,000 Units R ight Lower Abdomen HYDROcodone-acetaminophen (NORCO) 5-325 mg per tablet 1 tablet 1 tablet, oral, Every 6 hours PRN, 3rd line for pain, 2nd line for pain, Starting on Sun02/28/23 at 0246, Indications: PainIndications:Pain Given 03/01/2023 4:00 AM WEB CONTENT SPECIALIST 1 tablet Given 02/28/2023 11:46 AM WEB CONTENT SPECIALIST 1 tablet ipratropium-albuteroL (DUO-NEB) 0.5-2.5 mg/3 mL nebulizer solution 3 mL 3 mL, nebulization, Every 4 hours PRN (direct response consultant), shortness of breath, wheezing, Starting on Sun02/28/23 at 0120, Indications: Chronic Obstructive Pulmonary Disease with BronchospasmsIndications: Chronic Obstructive Pulmonary Disease with Bronchospasms lidocaine (LIDODERM) 5 % patch 1 patch 1 patch, transdermal, Administer over 12 Hours, Every 24 hours, First dose on Sun02/28/23 at 0230, Do not cover the holes on the top side of the patch., Apply to affected area: other Medication Applied 03/01/2023 3:03 AM WEB CONTENT SPECIALIST 1 patch Other (Comment) Medication Applied 02/28/2023 2:26 AM WEB CONTENT SPECIALIST 1 patch Other (Comment) metoprolol XL (TOPROL-XL) extended release tablet 25 mg 25 mg, oral, Daily, First dose on Sun02/28/23 at 0900, Tablets that are scored may be split, but do not crush, chew, dissolve, open or otherwise manipulate tablet/capsule. Given 03/01/2023 8:06 AM WEB CONTENT SPECIALIST 25 m g ondansetron (ZOFRAN) injection 4 mg 4 mg, intravenous, Administer over 2 Minutes, Every 6 hours PRN, nausea, vomiting, if not tolerating PO, Starting on Sun02/28/23 at 0150, Indications: Nausea and VomitingIndications:Nausea and Vomiting ondansetron ODT (ZOFRAN-ODT) disintegrating tablet 4 mg 4 mg, oral, Every 6 hours PRN, nausea, vomiting, Starting on Sun02/28/23 at 0150, Indications: Nausea and VomitingIndications:Nausea and Vomiting pantoprazole DR (PROTONIX) extended release tablet 40 mg 40 mg, oral, Daily, First dose on Sun02/28/23 at 0900, Do not crush, chew, cut, dissolve, open or otherwise manipulate tablet/capsule., Indications: Treatment of Non-Bleeding Gastric DisorderIndications:Treatment of Non-Bleeding Gastric Disorder Given 03/01/2023 8:06 AM WEB CONTENT SPECIALIST 40 mg ramelteon (ROZEREM) tablet 8 mg 8 mg, oral, Nightly PRN, sleep, Starting on Sun02/28/23 at 0152, Indications: Sleep-Onset InsomniaIndications:Sleep-Onset Insomnia sodium chloride 0.9% flush 0.5-20 mL 0.5-20 mL, intra-catheter, Every 8 hours scheduled, First dose on Sun02/28/23 at 0600, Flush volume based on line type and size. Given 03/01/2023 2:08 PM WEB CONTENT SPECIALIST 10 mL Given 03/01/2023 5:50 AM WEB CONTENT SPECIALIST 10 mL Given 02/28/2023 9:19 PM WEB CONTENT SPECIALIST 10 mL sodium chloride 0.9% flush 0.5-20 mL 0.5-20 mL, intra-catheter, As needed, line care, Starting on Sun02/28/23 at 0150, Flush volume based on line type and size. Flush before and after each use. documented in this encounter Historical Medications * This list may reflect changes made after this encounter. cholecalciferol (VITAMIN D-3) 5,000 unit tablet Take 1 tablet (5,000 Units total) by mouth daily omeprazole 20 mg tablet,delayed release (DR/EC) Take 1 tablet (20 mg total) by mouth daily HYDROcodone-aceta minophen (NORCO) 5-325 mg per tablet Take 1 tablet by mouth every 6 (six) hours as needed for pain gabapentin (NEURONTIN) 100 mg capsule Take 1 capsule (100 mg total) by mouth 3 (three) times a day aspirin 81 mg enteric coated tablet Take 1 tablet (81 mg total) by mouth daily metoprolol XL (TOPROL-XL) 25 mg extended release tablet Take 1 tablet (25 mg total) by mouth daily 02/29/2024 furosemide (LASIX) 20 mg tabletIndications :Edema Take 1 tablet (20 mg total) by mouth every other day 02/29/2024 amLODIPine (NORVASC) 5 mg tablet Take 1 tablet (5 mg total) by mouth daily 02/29/2024 added in this encounter Active and Recently Administered Medications Times are shown in WEB CONTENT SPECIALIST. Scheduled Medication Order 02/27/2023 02/28/2023 03/01/2023 amLODIPine (NORVASC) tablet 5 mg (CANCELED) 5 mg, oral, Daily, First dose on Sun02/28/23 at 0900, On hold since Sun03/01/2023 at 1003 until manually unheld 0900 (Not Given - Provider: Maggie Walker RN - Reason: Patient not available) 0806 (Given - Provider: Mayra Rodarte RN)1003 (Held by Provider - Provider: Brandon Ramirez MD - Reason: Change in Patient Status)1224 (Unheld by Provider - Provider: Adan Ware MD) aspirin enteric coated tablet 81 mg 81 mg, oral, Daily, First dose on Sun02/28/23 at 0900, Do not crush, chew, cut, dissolve, open or otherwise manipulate tablet/capsule. 0900 (Not Given - Provider: Maggie Walker RN - Reason: Patient not available) 0806 (Given - Provider: Mayra Rodarte RN) azithromycin (ZITHROMAX) tablet 250 mg 250 mg, oral, Daily, First dose on Sun02/28/23 at 1700, For 4 doses, Indications: Upper Respiratory/HEENT Infection 1537 (Given - Provider: Maggie Walker RN) cholecalciferol (VITAMIN D-3) tablet 5,000 Units 5,000 Units, oral, Daily, First dose on Sun02/28/23 at 0900, Each tablet contains 5,000 units (125 mcg) of cholecalciferol. 899 (Not Given - Provider: Maggie Walker RN - Reason: Patient not available) 08 (Given - Provider: Mayra Rodarte RN) furosemide (LASIX) tablet 20 mg (CANCELED) 20 mg, oral, Every other day, First dose on Sun03/01/23 at 0900, Indications: Edema 08 (Given - Provid er: Mayra Rodarte RN) gabapentin (NEURONTIN) capsule 100 mg 100 mg, oral, 3 times daily, First dose on Sun02/28/23 at 0900, Indications: Neuropathic Pain 899 (Not Given - Provider: Maggie Walker RN - Reason: Patient not available)153 (Given - Provider: Maggie Walker RN)2118 (Given - Provider: Juana Mckenzie RN) 08 (Given - Provider: Mayra Rodarte RN) heparin 1,000 unit/mL injection 1.5-6.9 mL (COMPLETED)(Linked Group 1) 1.5-6.9 mL, intra-catheter, Once, On Sun02/28/23 at 1430, For 1 dose, Dialysis, Indwell volume of catheter lumens post treatment. Give volume based upon barrel scraper's recommendation (usual range 1.2 - 3 mL) in each lumen., Indications: prevent clotting in catheter 1355 (Given - Provider: Wali Kevin - Comment: given on dialysis) heparin 5,000 unit/mL injection 5,000 Units 5,000 Units, subcutaneous, Every 8 hours scheduled, First dose on Sun02/28/23 at 0600, Indications: Deep Vein Thrombosis Prevention 0539 (Given - Provider: Juana Mckenzie RN)1537 (Given - Provider: Maggie Walker RN)2118 (Given - Provider: Juana Mckenzie RN) 0550 (Given - Provider: Juana Mckenzie RN)1408 (Given - Provider: Mayra Rodarte RN) lidocaine (LIDODERM) 5 % patch 1 patch 1 patch, transdermal, Administer over 12 Hours, Every 24 hours, First dose on Sun02/28/23 at 0230, Do not cover the holes on the top side of the patch., Apply to affected area: other 0226 (Medication Applied - Provider: Juana Mckenzie RN - Comment: Right side)1658 (Medication Removed - Provider: Maggie Walker RN) 0303 (Medication Applied - Provider: Juana Mckenzie RN - Comment: R rib cage)1408 (Medication Removed - Provider: Mayra Rodarte RN) metoprolol XL (TOPROL-XL) extended release tablet 25 mg 25 mg, oral, Daily, First dose on Sun02/28/23 at 0900, Tablets that are scored may be split, but do not crush, chew, dissolve, open or otherwise manipulate tablet/capsule. 0900 (Not Given - Provider: Maggie Walker RN - Reason: Patient not available) 0806 (Given - Provider: Mayra Rodarte RN) pantoprazole DR (PROTONIX) extended release tablet 40 mg 40 mg, oral, Daily, First dose on Sun02/28/23 at 0900, Do not crush, chew, cut, dissolve, open or otherwise manipulate tablet/capsule., Indications: Treatment of Non-Bleeding Gastric Disorder 0900 (Not Given - Provider: Maggie Walker RN - Reason: Patient not available) 08 (Given - Provider: Mayra Rodarte RN) sodium chloride 0.9% flush 0.5-20 mL 0.5-20 mL, intra-catheter, Every 8 hours scheduled, First dose on Sun02/28/23 at 0600, Flush volume based on line type and size. 0540 (Given - Provider: Juana Mckenzie RN)1658 (Given - Provider: Maggie Walker RN)2119 (Given - Provider: Juana Mckenzie RN) 0550 (Given - Provider: Juana Mckenzie RN)1408 (Given - Provider: Mayra Rodarte RN) PRN Medication Order 02/27/2023 02/28/2023 03/01/2023 acetaminophen (TYLENOL) tablet 650 mg 650 mg, oral, Every 4 hours PRN, 1st line for pain, fever, fever greater than 38.3 C, Starting on Sun02/28/23 at 0151, Indications: Fever, Pain 2117 (Given - Provider: Juana Mckenzie RN) Carrier Fluids for Secondary Infusion - 0.9% Sodium Chloride 30 mL, intravenous, As needed, For priming tubing and/or flushing, Starting on Sun02/28/23 at 0150, 0-250 ml/hr to flush line after IV infusions when no maintenance IV ordered. Infuse 30mL at the same rate as the secondary infusion. Run as primary IV, not intended for KVO. docusate sodium (COLACE) capsule 100 mg 100 mg, oral, 2 times daily PRN, constipation, Starting on Sun02/28/23 at 0150, Indications: constipation 2117 (Given - Provider: Juana Mckenzie RN) HYDROcodone-acetaminophen (NORCO) 5-325 mg per tablet 1 tablet 1 tablet, oral, Every 6 hours PRN, 3rd line for pain, 2nd line for pain, Starting on Sun02/28/23 at 0246, Indications: Pain 1146 (Given - Provider: Maggie Walker RN) 0400 (Given - Provider: Juana Mckenzie RN) ipratropium-albuteroL (DUO-NEB) 0.5-2.5 mg/3 mL nebulizer solution 3 mL 3 mL, nebulization, Every 4 hours PRN (direct response consultant), shortness of breath, wheezing, Starting on Sun02/28/23 at 0120, Indications: Chronic Obstructive Pulmonary Disease with Bronchospasms ondansetron (ZOFRAN) injection 4 mg(Linked Group 2) 4 mg, intravenous, Administer over 2 Minutes, Every 6 hours PRN, nausea, vomiting, if not tolerating PO, Starting on Sun02/28/23 at 0150, Indications: Nausea and Vomiting ondansetron ODT (ZOFRAN-ODT) disintegrating tablet 4 mg(Linked Group 2) 4 mg, oral, Every 6 hours PRN, nausea, vomiting, Starting on Sun02/28/23 at 0150, Indications: Nausea and Vomiting ramelteon (ROZEREM) tablet 8 mg 8 mg, oral, Nightly PRN, sleep, Starting on Sun02/28/23 at 0152, Indications: Sleep-Onset Insomnia sodium chloride 0.9% flush 0.5-20 mL 0.5-20 mL, intra-catheter, As needed, line care, Starting on Sun02/28/23 at 0150, Flush volume based on line type and size. Flush before and after each use. Linked Groups Order Group 1: Dialysis Access Care (CANCELED) Routine, Once (Routine), On Sun02/28/23 at 1350, For 1 occurrence, Catheter access to use for this treatment: Tunneled Dialysis Catheter, Dialysis And heparin 1,000 unit/mL injection 1.5-6.9 mL (COMPLETED)Jump to med 1.5-6.9 mL, intra-catheter, Once, On Sun02/28/23 at 1430, For 1 dose, Dialysis, Indwell volume of catheter lumens post treatment. Give volume based upon barrel scraper's recommendation (usual range 1.2 - 3 mL) in each lumen., Indications: prevent clotting in catheter Group 2: ondansetron ODT (ZOFRAN-ODT) disintegrating tablet 4 mgJump to med 4 mg, oral, Every 6 hours PRN, nausea, vomiting, Starting on Sun02/28/23 at 0150, Indications: Nausea and Vomiting Or ondansetron (ZOFRAN) injection 4 mgJump to med 4 mg, intravenous, Administer over 2 Minutes, Every 6 hours PRN, nausea, vomiting, if not tolerating PO, Starting on Sun02/28/23 at 0150, Indications: Nausea and Vomiting documented in this encounter Orders Medications Ordered That Alfredo ht Not Have Been Administered Count Last Ordered Date First Ordered Date Carrier Fluids for Secondary Infusion - 0.9% Sodium Chloride 1 02/28/2023 ipratropium-albuteroL (DUO-N EB) 0.5-2.5 mg/3 mL nebulizer solution 3 mL 2 02/28/2023 ondansetron (ZOFRAN) injection 4 mg 1 02/28 ondansetron ODT (ZOFRAN-ODT) disintegrating tablet 4 mg 1 02/28/2023 ramelteon (ROZEREM) tablet 8 mg 1 sodium chloride 0.9% flush 0.5-20 mL 1 02/16 Nursing Count Last Ordered Date First Orde red Date WEIGH PATIENT 1 02/28/2023 Consult Count Last Ordered Date First Orde red Date IP CONSULT TO NEPHROLOGY 1 02/28/2023 Dialysis Count Last Ordered Date First Orde red Date HEMODIALYSIS/DUF 1 02/28/2023 Admission Count Last Ordered Date First Orde red Date ADMIT TO INPATIENT 1 02/28/2023 Discharge Count Last Ordered Date First Orde red Date DISCHARGE PATIENT 1 03/01/2023 documented in this encounter Care Teams Hard Candy Spinner Relationship Specialty Start Date End Date No, Physician PCP - General 02/28/23 02/26/24 documented as of this encounter
--- OUTSIDE RECORDS SUMMARY | 2024-03-19 19:04 | XMS_ITS | Encounter Summary ---
Author Organization [facility] Healthcare Address [address] [place] [address] Care Team Providers Care Head Correction Officer Name Role Phone Jasson Cueva MD Primary Care Provider [phone] Reason for Visit * MRI/CAT/PET Scan (Routine) - Closed Specialty Diagnoses / Procedures Referred By Contac t Referred To Contact Procedures Neuro CT Outside Reference Angel Arriaga MD [address] [facility] [address] [place] [address] Phone: tel: fax: Referral ID Status Reason Start Date Expiration Date Visits Re quested Visits Authorized [id number] Closed 03/04/2024 04/03/2025 1 1 Encounter Details Date Type Department Care Team (Latest Contact Info) Description 03/04/2024 8:07 AM FLAT POLISHER - 03/04/2024 11:59 PM [facility] Hospital Encounter [facility] [address] [place] [id number] Discharge Disposition: Discharge to home or self care Social History Tobacco Use Types Packs/Day Years Used Date Smoking Tobacco: Former Cigarettes [facility] Utilities Answer Date Recorded In the past 12 months has [email or web address] electric, gas, oil, or water company threatened [...] often do you attend chur ch or yazdanism services? Never 02/28/2023 Do you belong to [...] slept in a prison (including now)? No 02/28/2023 Personal Safety Answer Date Recorded Have you ever been in or are you currently in a harmful physical or emotional relationship or is someone making you feel afraid or unsafe? Denies 03/05/2024 Comments Unknown Sex and Gender Information Value Date Recorded Sex Assigned at Not on file Legal Sex Female 7:00 PM FLAT POLISHER Gender Identity Not on file Sexual Orientation [...] by mouth 3 (three) times a day HYDROcodone-aceta minophen (NORCO) 5-325 mg per tablet Take 1 tablet by mouth every 6 (six) hours as needed for pain omeprazole 20 mg tablet,delayed release (DR/EC) Take 1 tablet (20 mg total) by mouth daily sevelamer (RENAGEL) 800 mg tablet Take 1 tablet (800 mg total) by mouth 3 (three) times a day with meals documented as of this encounter Discharge Disposition Disposition Code Departure Means Destination Discharge to home or self care documented in this encounter Plan of Treatment Not on file documented as of this encounter Procedures Procedure Name Priority Date/Time Associated Diagnosis Comments NEURO CT OUTSIDE REFERENCE Routine 03/04/2024 8:07 AM FLAT POLISHER documented in this encounter Results * Neuro CT Outside Reference (03/04/2024 8:07 AM FLAT POLISHER) Impressions [facility] - 03/04/2024 8:07 AM FLAT POLISHER These images are for Reference purposes only and have not been reviewed by [facility]. ??There will be no report generated by a [facility] Radiologist. Narrative [facility] - 03/04/2024 8:07 AM FLAT POLISHER EXAMINATION: ??Images For Reference Purposes Only us Angel Arriaga MD IMG CT PROCEDURES Final Re sult [facility] documented in this encounter Visit Diagnoses Not on filedocumented in this encounter Care Teams Head Correction Officer Relationship Specialty Start Date End Date Jasson Cueva MD [address] [place] [id number] PCP - General Family Medicine 02/27/24 documented as of this encounter
--- OUTSIDE RECORDS SUMMARY | 2024-03-19 19:04 | XMS_ITS | Encounter Summary ---
Author Organization [facility] Address [address] [place] [address] Phone Care Team Providers Care Php Website Developer Name Role Phone Jasson Cueva MD Primary Care Provider [phone] Encounter Details Date Type Department Care Team (Late st Contact Info) Description 02/29/2024 Telephone [facility] Scheduling [address] [place] [address] Princess Payne Social History Tobacco Use Types Packs/Day Years Used Date Smoking Tobacco: Former Cigarettes [facility] Utilities Answer Date Recorded In the past 12 months has th [employer] electric, gas, oil, or water company threatened [...] often do you attend chur ch or pentecostal services? Never 02/28/2023 Do you belong to any clubs o r organizations such as sabianist groups, unions, fraternal or athletic groups, or [...] place to sleep or slept in a long term (including now)? No 02/28/2023 Personal Safety Answer Date Recorded Have you ever been in or are you currently in a harmful physical or emotional relationship or is someone making you feel afraid or unsafe? Denies 03/05/2024 Comments Unknown Sex and Gender Information Value Date Recorded Sex Assigned at Not on file Legal Sex Female 7:00 PM SOFTWARE SALES CONSULTANT Gender Identity Not on file Sexual Orientation Not on file documented as of this encounter Miscellaneous Notes * Telephone Encounter - Lalita Gonzalez - 03/05/2024 12:29 PM CST 2nd attempt - patient is still admitted to hospital Follow up will be needed after discharge WARE SALES CONSULTANT * Telephone Encounter - Kimberli Cruz - 02/29/2024 11:16 AM CST WQ - Pt is currenlty addmited since 02/23/2024. She was seen by Dr Sanchez for consult at the [facility] 02/22 and a referral is created for her to be seen in clinic for f/u. Pt needs a RETURN APPT. Called pt and spoke to Zack. They are not sure yet when pt will be discharged. No appt made. Encouraged him to callback for scheduling as well. 1st attempt. 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
--- OUTSIDE RECORDS SUMMARY | 2024-03-19 19:04 | XMS_ITS | Encounter Summary ---
Author Organization [facility] Healthcare Address [address] [place] [address] Care Team Providers Care Cogeneration Operator Name Role Phone Jasson Cueva MD Primary Care Provider [phone] Reason for Visit * MRI/CAT/PET Scan (Routine) - Closed Specialty Diagnoses / Procedures Referred By Contac t Referred To Contact Procedures Neuro CT Outside Reference Angel Arriaga MD [address] [facility] [address] [place] [address] Phone: tel: fax: Referral ID Status Reason Start Date Expiration Date Visits Re quested Visits Authorized [id number] Closed 03/04/2024 04/03/2025 1 1 Encounter Details Date Type Department Care Team (Latest Contact Info) Description 03/04/2024 7:54 AM TIPPLE GREASER - 03/04/2024 11:59 PM [facility] Hospital Encounter [facility]) [address] [place] [address] Discharge Disposition: Discharge to home or self care Social History Tobacco Use Types Packs/Day Years Used Date Smoking Tobacco: Former Cigarettes [facility] Utilities Answer Date Recorded In the past 12 months has [employer] electric, gas, oil, or water company threatened [...] chur ch or latter day services? Never 02/28/2023 Do you belong to any clubs o r organizations such as episcopal groups, unions, fraternal or athletic groups, or [...] slept in a fpc (including now)? No 02/28/2023 Personal Safety Answer Date Recorded Have you ever been in or are you currently in a harmful physical or emotional relationship or is someone making you feel afraid or unsafe? Denies 03/05/2024 Comments Unknown Sex and Gender Information Value Date Recorded Sex Assigned at Not on file Legal Sex Female 7:00 PM TIPPLE GREASER Gender Identity Not on file Sexual Orientation [...] Comments NEURO CT OUTSIDE REFERENCE Routine 03/04/2024 7:54 AM TIPPLE GREASER documented in this encounter Results * Neuro CT Outside Reference (03/04/2024 7:54 AM TIPPLE GREASER) Impressions [facility] - 03/04/2024 7:54 AM TIPPLE GREASER These images are for Reference purposes only and have not been reviewed by [facility]. ??There will be no report generated by a [facility] Radiologist. Narrative [facility] - 03/04/2024 7:54 AM TIPPLE GREASER EXAMINATION: ??Images For Reference Purposes Only us Angel Arriaga MD IMG CT PROCEDURES Final Re sult [facility] documented in this encounter Visit Diagnoses Not on filedocumented in this encounter Care Teams Cogeneration Operator Relationship Specialty Start Date End Date Jasson Cueva MD [address] [place] [id number] PCP - General Family Medicine 02/27/24 documented as of this encounter
--- OUTSIDE RECORDS SUMMARY | 2024-03-19 19:04 | XMS_ITS | Encounter Summary ---
Author Organization [facility] Address [address] [place] [address] Phone Care Team Providers Care Mortgage Funder Name Role Phone No, Physician Primary Care Provider [phone] Jasson Cueva MD Primary Care Provider Encounter Details Date Type Department Care Team (Late st Contact Info) Description 02/26/2024 Telephone [facility] General Neurology [address] [facility] Medicine 6th [place] [address] [place] [address] Deidra Monique RN Social History Tobacco Use Types Packs/Day Years Used Date Smoking Tobacco: Former Cigarettes [facility] Utilities Answer Date Recorded In the past 12 months has [employer] electric, gas, oil, or water company threatened [...] attend chur ch or muslim services? Never 02/28/2023 Do you belong to any clubs o r organizations such as baptist groups, unions, fraternal or athletic groups, or [...] slept in a penitentiary (including now)? No 02/28/2023 Personal Safety Answer Date Recorded Have you ever been in or are you currently in a harmful physical or emotional relationship or is someone making you feel afraid or unsafe? Denies 03/04/2024 Comments Unknown Sex and Gender Information Value Date Recorded Sex Assigned at Not on file Legal Sex Female 7:00 PM BROKERAGE PURCHASE AND SALE CLERK Gender Identity Not on file Sexual Orientation Not on file documented as of this encounter Miscellaneous Notes * Telephone Encounter - Deidra Monique RN - 03/03/2024 9:55 AM CST Fyi I called and spoke with Lars. Pt refused services ERAGE PURCHASE AND SALE CLERK * Telephone Encounter - Deidra Monique RN - 02/26/2024 1:53 PM CST fyi Message sent to PAT Grimes from [facility] called. The note that was sent for the F2F is by a resident and saysco signature required. This note will require a wet signature with the printed name below it and a time and date to be accepted for the F2F. would you please sign time and date? Thanks Deidra [facility] Lars Grimes [phone] ERAGE PURCHASE AND SALE CLERK documented in this encounter Plan of Treatment Not on file documented as of this encounter Visit Diagnoses Not on filedocumented in this encounter Care Teams Mortgage Funder Relationship Specialty Start Date End Date No, Physician PCP - General 02/28/23 02/26/24 Jasson Cueva MD [address] [place] [id number] PCP - General Family Medicine 02/27/24 documented as of this encounter
--- OUTSIDE RECORDS SUMMARY | 2024-03-19 19:04 | XMS_ITS | Encounter Summary ---
Author Organization [facility] Healthcare Address [address] [place] [address] Care Team Providers Care Sheetmetal Trades Worker Name Role Phone Jasson Cueva MD Primary Care Provider [phone]- [phone] Reason for Visit * MRI/CAT/PET Scan (Routine) - Closed Specialty Diagnoses / Procedures Referred By Contac t Referred To Contact Procedures Neuro MR Outside Reference Angel Arriaga MD [address] [facility] [address] [place] [address] Phone: tel: fax: Referral ID Status Reason Start Date Expiration Date Visits Re quested Visits Authorized [id number] Closed 03/04/2024 04/03/2025 1 1 Encounter Details Date Type Department Care Team (Latest Contact Info) Description 03/04/2024 9:08 AM RN TESTING - 03/04/2024 11:59 PM [facility] Hospital Encounter [facility]) [address] [place] [id number] Discharge Disposition: Discharge to home or self care Social History Tobacco Use Types Packs/Day Years Used Date Smoking Tobacco: Former Cigarettes [facility] Utilities Answer Date Recorded In the past 12 months has [employer] electric, gas, oil, or water company threatened [...] often do you attend chur ch or protestant services? Never 02/28/2023 Do you belong to any clubs o r organizations such as mandaen groups, unions, fraternal or athletic groups, or [...] slept in a alf (including now)? No 02/28/2023 Personal Safety Answer Date Recorded Have you ever been in or are you currently in a harmful physical or emotional relationship or is someone making you feel afraid or unsafe? Denies 03/05/2024 Comments Unknown Sex and Gender Information Value Date Recorded Sex Assigned at Not on file Legal Sex Female 7:00 PM RN TESTING Gender Identity Not on file Sexual Orientation [...] Name Priority Date/Time Associated Diagnosis Comments NEURO MR OUTSIDE REFERENCE Routine 03/04/2024 9:08 AM RN TESTING documented in this encounter Results * Neuro MR Outside Reference (03/04/2024 9:08 AM RN TESTING) Impressions RAD_PACS_[facility] - 03/04/2024 9:08 AM RN TESTING These images are for Reference purposes only and have not been reviewed by [facility] Radiology. ??There will be no report generated by a [facility] Radiologist. Narrative RAD_PACS_[facility] - 03/04/2024 9:08 AM RN TESTING EXAMINATION: ??Images For Reference Purposes Only us Angel Arriaga MD IMG MRI PROCEDURES Final R esult [facility] documented in this encounter Visit Diagnoses Not on filedocumented in this encounter Care Teams Sheetmetal Trades Worker Relationship Specialty Start Date End Date Jasson Cueva MD [address] [place] [id number] PCP - General Family Medicine 02/27/24 documented as of this encounter
--- OUTSIDE RECORDS SUMMARY | 2024-03-19 19:04 | XMS_ITS | Encounter Summary ---
Author Organization [facility] Healthcare Address [address] [place] [address] Care Team Providers Care Hotel Concierge Name Role Phone Jasson Cueva MD Primary Care Provider [phone]- [phone] Encounter Details Date Type Department Care Team (Latest Contact Info) Description 03/04/2024 9:38 AM SOAKING ROOM OPERATOR - 03/04/2024 11:59 PM [facility] Hospital Encounter [facility]) [address] [place] [address] Discharge Disposition: Discharge to home or self care Social History Tobacco Use Types Packs/Day Years Used Date Smoking Tobacco: Former Cigarettes [facility] Utilities Answer Date Recorded In the past 12 months has [employer], gas, oil, or water [employer] threatened to shut off services in your [...] often do you attend chur ch or mosque services? Never 02/28/2023 Do you belong to [...] place to sleep or slept in a custodial (including now)? No 02/28/2023 Personal Safety Answer Date Recorded Have you ever been in or are you currently in a harmful physical or emotional relationship or is someone making you feel afraid or unsafe? Denies 03/05/2024 Comments Unknown Sex and Gender Information Value Date Recorded Sex Assigned at Not on file Legal Sex Female 7:00 PM SOAKING ROOM OPERATOR Gender Identity Not on file Sexual [...] Name Priority Date/Time Associated Diagnosis Comments US TRANSFER OF OUTSIDE FILMS Routine 03/04/2024 9:38 AM SOAKING ROOM OPERATOR documented in this encounter Results * US Outside Reference (03/04/2024 9:38 AM SOAKING ROOM OPERATOR) Impressions RAD_PACS_[facility] - 03/04/2024 9:38 AM SOAKING ROOM OPERATOR These images are for Reference purposes only and have not been reviewed by [facility] Radiology. ??There will be no report generated by a [facility] Radiologist. Narrative RAD_PACS_[facility] - 03/04/2024 9:38 AM SOAKING ROOM OPERATOR EXAMINATION: ??Images For Reference Purposes Only us Angel Arriaga MD IMG US PROCEDURES Final Re sult [facility] documented in this encounter Visit Diagnoses Not on filedocumented in this encounter Care Teams Hotel Concierge Relationship Specialty Start Date End Date Jasson Cueva MD [address] [place] [address] PCP - General Family Medicine 02/27/24 documented as of this encounter
--- OUTSIDE RECORDS SUMMARY | 2024-03-19 19:04 | XMS_ITS | Encounter Summary ---
Author Organization [facility] Healthcare Address [address] [place] [address] Care Team Providers Care Physical Anthropologist Name Role Phone Jasson Cueva MD Primary Care Provider [phone]- [phone] Encounter Details Date Type Department Care Team (Latest Contact Info) Description 03/05/2024 12:23 PM PROJECT PRODUCT MANAGER - 03/05/2024 11:59 PM PROJECT PRODUCT MANAGER Hospital Encounter [facility] [address] [place] [address] Discharge Disposition: Discharge to home or self care Social History Tobacco Use Types Packs/Day Years Used Date Smoking Tobacco: Former Cigarettes [facility] Utilities Answer Date Recorded In the past 12 months has th [employer] electric, gas, oil, or water company threatened [...] week 02/28/2023 How often do you attend [facility] or confucianist services? Never 02/28/2023 Do you belong to any clubs o r organizations such as confucianist groups, unions, fraternal or athletic groups, or [...] slept in a usp (including now)? No 02/28/2023 Personal Safety Answer Date Recorded Have you ever been in or are you currently in a harmful physical or emotional relationship or is someone making you feel afraid or unsafe? Denies 03/05/2024 Comments Unknown Sex and Gender Information Value Date Recorded Sex Assigned at Not on file Legal Sex Female 7:00 PM PROJECT PRODUCT MANAGER Gender Identity Not on file Sexual [...] on filedocumented in this encounter Care Teams Physical Anthropologist Relationship Specialty Start Date End Date Jasson Cueva MD [address] [place] [phone] PCP - General Family Medicine 02/27/24 documented as of this encounter
--- OUTSIDE RECORDS SUMMARY | 2024-03-19 19:04 | XMS_ITS | Encounter Summary ---
Author Organization [facility] Healthcare Address [address] [place] [address] Care Team Providers Care Area Supervisor Name Role Phone Jasson Cuvea MD Primary Care Provider [phone]- [phone] Reason for Visit * MRI/CAT/PET Scan (Routine) - Closed Specialty Diagnoses / Procedures Referred By Contac t Referred To Contact Procedures Neuro MR Outside Reference Angel Arriaga MD [address] [facility] [address] [place] [address] Phone: tel: fax: Referral ID Status Reason Start Date Expiration Date Visits Re quested Visits Authorized [id number] Closed 03/04/2024 04/03/2025 1 1 Encounter Details Date Type Department Care Team (Latest Contact Info) Description 03/04/2024 8:21 AM ELASTIC YARN TWISTER HELPER - 03/04/2024 11:59 PM [facility] Hospital Encounter [facility]) [address] [place] [phone] Discharge Disposition: Discharge to home or self care Social History Tobacco Use Types Packs/Day Years Used Date Smoking Tobacco: Former Cigarettes [facility] Utilities Answer Date Recorded In the past 12 months has [employer] electric, gas, oil, or water company threatened [...] often do you attend chur ch or evangelical services? Never 02/28/2023 Do you belong to [...] place to sleep or slept in a nursing home (including now)? No 02/28/2023 Personal Safety Answer Date Recorded Have you ever been in or are you currently in a harmful physical or emotional relationship or is someone making you feel afraid or unsafe? Denies 03/05/2024 Comments Unknown Sex and Gender Information Value Date Recorded Sex Assigned at Not on file Legal Sex Female 7:00 PM ELASTIC YARN TWISTER HELPER Gender Identity Not on file Sexual [...] Comments NEURO MR OUTSIDE REFERENCE Routine 03/04/2024 8:21 AM ELASTIC YARN TWISTER HELPER documented in this encounter Results * Neuro MR Outside Reference (03/04/2024 8:21 AM ELASTIC YARN TWISTER HELPER) Impressions RAD_PACS[facility] - 03/04/2024 8:21 AM ELASTIC YARN TWISTER HELPER These images are for Reference purposes only and have not been reviewed by [facility] Radiology. ??There will be no report generated by a [facility] Radiologist. Narrative RAD_PACS_[facility] - 03/04/2024 8:21 AM ELASTIC YARN TWISTER HELPER EXAMINATION: ??Images For Reference Purposes Only us Angel Arriaga MD IMG MRI PROCEDURES Final R esult [facility] documented in this encounter Visit Diagnoses Not on filedocumented in this encounter Care Teams Area Supervisor Relationship Specialty Start Date End Date Jasson Cueva MD [address] [place] [id number] PCP - General Family Medicine 02/27/24 documented as of this encounter
--- OUTSIDE RECORDS SUMMARY | 2024-03-19 19:04 | XMS_ITS | Encounter Summary ---
Author Organization [facility] Healthcare Address [address] [place] [address] Care Team Providers Care Tablet Machine Operator Name Role Phone Jasson Cueva MD Primary Care Provider [phone]- [phone] Reason for Visit * MRI/CAT/PET Scan (Routine) - Closed Specialty Diagnoses / Procedures Referred By Contac t Referred To Contact Procedures Neuro CT Outside Reference Angel Arriaga MD [address] [facility] [address] [place] [address] Phone: tel: fax: Referral ID Status Reason Start Date Expiration Date Visits Re quested Visits Authorized [id number] Closed 03/04/2024 04/03/2025 1 1 Encounter Details Date Type Department Care Team (Latest Contact Info) Description 03/04/2024 7:57 AM PSYCHOLOGICAL TESTS SALES AGENT - 03/04/2024 11:59 PM [facility] Hospital Encounter [facility]) [address] [place] [address] Discharge Disposition: Discharge to home or self care Social History Tobacco Use Types Packs/Day Years Used Date Smoking Tobacco: Former Cigarettes [facility] Utilities Answer Date Recorded In the past 12 months has [employer] electric, gas, oil, or water company threatened [...] often do you attend chur ch or buddhism services? Never 02/28/2023 Do you belong to any clubs o r organizations such as latter day groups, unions, fraternal or athletic groups, or [...] to sleep or slept in a senior living (including now)? No 02/28/2023 Personal Safety Answer Date Recorded Have you ever been in or are you currently in a harmful physical or emotional relationship or is someone making you feel afraid or unsafe? Denies 03/05/2024 Comments Unknown Sex and Gender Information Value Date Recorded Sex Assigned at Not on file Legal Sex Female 7:00 PM PSYCHOLOGICAL TESTS SALES AGENT Gender Identity Not on file Sexual Orientation [...] Comments NEURO CT OUTSIDE REFERENCE Routine 03/04/2024 7:57 AM PSYCHOLOGICAL TESTS SALES AGENT documented in this encounter Results * Neuro CT Outside Reference (03/04/2024 7:57 AM PSYCHOLOGICAL TESTS SALES AGENT) Impressions [facility] - 03/04/2024 7:57 AM PSYCHOLOGICAL TESTS SALES AGENT These images are for Reference purposes only and have not been reviewed by [facility] Radiology. ??There will be no report generated by a [facility] Radiologist. Narrative RAD_PACS_[facility] - 03/04/2024 7:57 AM PSYCHOLOGICAL TESTS SALES AGENT EXAMINATION: ??Images For Reference Purposes Only us Angel Arriaga MD IMG CT PROCEDURES Final Re sult [facility] documented in this encounter Visit Diagnoses Not on filedocumented in this encounter Care Teams Tablet Machine Operator Relationship Specialty Start Date End Date Jasson Cueva MD [address] [place] [phone] PCP - General Family Medicine 02/27/24 documented as of this encounter
--- OUTSIDE RECORDS SUMMARY | 2024-03-19 19:04 | XMS_ITS | Encounter Summary ---
Author Organization [facility] Healthcare Address [address] [place] [address] Care Team Providers Care Case Therapist Name Role Phone Jasson Cueva MD Primary Care Provider Reason for Visit * Reason Comments Vascular Access Problem Encounter Details Date Type Department Care Team (Late st Contact Info) Description 03/05/2024 4:56 AM ETL ANALYST DEVELOPER - 03/05/2024 12:22 PM ETL ANALYST DEVELOPER Emergency [facility] Emergency Department [address] [place] [address] Layton Sheridan MD [address] [place] [address] Mauricio Geronimo MD [address] [place] [address] Complication associated with dialysis catheter (Primary Dx); ESRD (end stage renal disease) on dialysis (HCC) Discharge Disposition: Discharge to home or self care Social History Tobacco Use Types Packs/Day Years Used Date Smoking Tobacco: Former Cigarettes [facility] Utilities Answer Date Recorded In the past 12 months has [employer], gas, oil, or water company threatened to [...] attend chur ch or scientology services? Never 02/28/2023 Do you belong to any clubs o r organizations such as quaker groups, unions, fraternal or athletic groups, or [...] on file Legal Sex Female 7:00 PM ETL ANALYST DEVELOPER Gender Identity Not on file Sexual Orientation Not on file documented as of this encounter Last Filed Vital Signs Vital Sign Reading Time Taken Comments Blood Pressure 142/77 03/05/2024 12:00 PM ETL ANALYST DEVELOPER Pulse 71 03/05/2024 12:00 PM ETL ANALYST DEVELOPER Temperature 36.2 ??C (97.1 ??F) 03/05/2024 1:36 AM CS T Respiratory Rate 16 03/05/2024 9:05 AM ETL ANALYST DEVELOPER Oxygen Saturation 92% 03/05/2024 12: 00 PM ETL ANALYST DEVELOPER Inhaled Oxygen Concentration - - Weight 74.7 kg (164 lb 10.9 oz) 03/04/2024 6:46 PM ETL ANALYST DEVELOPER Height 170.2 cm (5' 7 ) 03/04/2024 6:46 PM ETL ANALYST DEVELOPER Body Mass Index 25.79 03/04/2024 6:46 PM ETL ANALYST DEVELOPER documented in this encounter Discharge Instructions * Discharge Instructions* Desmond Hairston MD - 03/05/2024 11:40 AM ETL ANALYST DEVELOPER You were seen in the emergency department for a malfunctioning dialysis catheter. You were seen by interventional radiology and this catheter was replaced. Due to this catheter malfunction, you missed your dialysis session on Sunday. Please attend your session today. If this line malfunctions or you have high fevers and redness or discharge from the catheter site, please return to the emergency department for further evaluation and treatment. ANALYST DEVELOPER documented in this encounter Medications at Time [...] Departure Means Destination Comment s Discharge to home or self care documented in this encounter Progress Notes * Radha Sheriff LCSW - 03/05/2024 11:53 AM CST EDSW received a forwarded email from the clinical liaison (Katarzyna) at [facility] that pt would need to be back at the facility by 2:30pm in order to make her dialysis appointment. YURIDIA reached out to physicians and RN to update and was notified that pt is ready for D/C. RN callingto arrange EMS. YURIDIA confirmed with Katarzyna that pt is going to [address] [facility]], [place], [place], number for report is [phone]. YURIDIA provided RN with address and report #. RN notified that EMS will be here momentarily. YURIDIA emailedKate with an update. LYNN Gaxiola LCSW ANALYST DEVELOPER documented in this encounter ED Notes * Layton Sheridan MD - 03/05/2024 5:29 AM CST HPI Chief Complaint Patient presents with Vascular Access Problem 73 F with hx ESRD on HD MWF (anuric), HTN, undiagnosed COPD who presents due to dialysis line not working during her Saturday 03/03 session, and she was sent to the ED by her physician 03/04. Lastdialysis session was Wednesday 02/28. She reports no other new symptoms at this time. Denies headache,fever, nausea, vomiting, cough, chest pain, SOB. Patient History: Patient Active Problem List Diagnosis Date Noted Hemodialysis-associated hypotension 02/28/2024 Aspiration into airway 02/28/2024 Neuropathic pain 02/28/2024 Stroke-like symptoms 02/23/2024 COPD with acute exacerbation (HCC) 02/28/2023 Closed fracture of one rib of right side 02/28/2023 Musculoskeletal chest pain 02/28/2023 Acute respiratory failure with hypoxia (CMS/HCC) (HCC) 02/28/2023 Mild bibasilar atelectasis 02/28/2023 Acute bronchitis 02/28/2023 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) 02/28/2023 Primary hypertension 02/28/2023 ESRD (end stage renal disease) on dialysis ([facility]) 02/28/2023 Past Medical History: Diagnosis Date CHF (congestive heart failure) ([facility]) ([facility]) CKD (chronic kidney disease), stage IV ([facility]) ([facility]) COPD (chronic obstructive pulmonary disease) ([facility]) Depression Hemiplegia and hemiparesis following cerebral infarction affecting right dominant side ([facility]) HLD (hyperlipidemia) Hypertension Memory deficit following other cerebrovascular disease Metabolic encephalopathy Osteoarthritis Polyneuropathy Stroke ([facility]) Past Surgical History: Procedure Laterality Date EXCHANGE TUNNELED LINE Left 03/05/2024 JOINT REPLACEMENT SHOULDER SURGERY Right TOTAL HIP ARTHROPLASTY Bilateral No family history on file. Social History Tobacco Use Smoking status: Former Types: Cigarettes Smokeless tobacco: None Substance and Sexual Activity Alcohol use: None Drug use: None Sexual activity: None Social History Social History Narrative Not on file Review of Systems Review of Systems All other systems reviewed and are negative. Physical Exam ED Triage Vitals Temp Pulse Resp BP SpO2 03/04/24 1846 03/04/24 1846 03/04/24 1846 03/04/24 1846 03/04/24 184 36.8 ??C (98.2 ??F) 84 20 118/82 95 % Temp src Heart Rate Source Patient Position BP Location FiO2 (%) 03/04/24 2305 03/04/24 2305 03/04/24 2305 03/04/24 2305 -- Oral Monitor Sitting Right arm Height Height Method Weight Weight Method 03/04/241845 -- 03/04/241845 -- 1.702 m (5' 7 ) 74.7 kg (164 lb 10.9 oz) Physical Exam Constitutional: General: She is not in acute distress. HENT: Mouth/Throat: Mouth: Mucous membranes are moist. Eyes: General: No scleral icterus. Extraocular Movements: Extraocular movements intact. Cardiovascular: Rate and Rhythm: Normal rate and regular rhythm. Heart sounds: No murmur heard. No friction rub. No gallop. Comments: L anterior chest wall has tunneled dialysis catheter with dressing that appears clean, dry, and intact Pulmonary: Effort: Pulmonary effort is normal. Breath sounds: No wheezing, rhonchi or rales. Abdominal: General: Bowel sounds are normal. There is no distension. Palpations: Abdomen is soft. Tenderness: There is no abdominal tenderness. Musculoskeletal: General: No swelling, tenderness or signs of injury. Skin: General: Skin is warm and dry. Neurological: Mental Status: She is alert. Comments: Face grossly symmetric, no dysarthria, hearing intact to voice. Moves BLE symmetrically and spontaneously. MDM NIH Score Medical Decision Making 73 F with hx ESRD on HD MWF (anuric), HTN, undiagnosed COPD who presents due to dialysis line not working during her Saturday 03/03 session, and she was sent to the ED by her physician 03/04. On exam her blue port is patent (flushes and pulls back), red port does not pull back so flush was not attempted. Will consult IR for assistance and check electrolytes for derangements that would require urgent dialysis. Plan -CMP -CBC -IR consult in AM Amount and/or Complexity of Data Reviewed ECG/medicine tests: ordered and independent interpretation performed. Risk OTC drugs. Attending Summary of Care See prior notes. Briefly, patient is a 73-year-old female with past medical history significant forhypertension, COPD, end-stage renal disease on hemodialysis (M/W/F; patient with failed left upper extremity fistula; patient with dialysis access through tunneled left chest wall lisa catheter). Patient presents due to dialysis catheter complication. Has not been working at a recent dialysis sessions. Patient last received dialysis this past Sunday (currently Sunday morning). Patient denies other complaints. No chest pain, no shortness a breath. No nausea or vomiting. Patient is here only for evaluation of her dialysis line. Blue port removal line is patent. Red line is not patent; unable to draw back the heparin dwell. Screening labs to rule out metabolic derangement. IR consult for facilitation of replacement of dialysis line. Potential for disposition home if no metabolic derangement and able to correct current dialysis line issue. Patient aware of plan and in agreement. I have seen and examined the patient on 03/05/2024. I agree with the findings and plan of care as documented in the resident's note. Layton Sheridan MD ' ED Course as of 03/06/24 0934 Time: 03/05 523 Comment: Check for metabolic derangements in case of urgent dialysis needs By: Kamila Jim MD Time: 03/05 529 Comment: Will have RN attempt to flush line. If unable then will order alteplase. Plan to consult IR in the AM By: Kamila Jim MD Time: 03/05 542 Comment: Blue port is patent (flushes and pulls back), red catheter does not pull back (flush not attempted). By: Kamila Jim MD Time: 03/05 637 Comment: IR consulted, resident is on their way to see the patient, will staff with attending and see about scheduling today. Notified RN to draw CMP as it was not drawn with last shift By: Kamila Jim MD Time: 03/05 710 Comment: Recieved signout at shift change from Dr. Sheridan. Reviewed presentation, pertinent labs, imaging and additional workup/consultations and anticipated disposition. Dialysis tunneled IJ line malfunction, P IR eval, no dialysis since last Sunday By: Mauricio Geronimo MD Complication associated with dialysis catheter ESRD (end stage renal disease) on dialysis (HCC) Layton Sheridan MD 03/05/24 0640 Layton Sheridan MD 03/05/24 0651 Layton Sheridan MD 03/06/24 0935 ANALYST DEVELOPER ANALYST DEVELOPER ANALYST DEVELOPER * Nakia Bunn RN - 03/05/2024 4:56 AM CST Bed: ED2-25 Expected date: Expected time: Means of arrival: Comments: Nakia Odell RN 03/05/24 0456 ANALYST DEVELOPER * Marisela Dhillon RN - 03/04/2024 6:44 PM CST Pt to ED for vascular access problem. Pt states she normally receives dialysis MWF. Pt's doctor sent her here because they were unable to dialysis. Pt last received dialysis last Sunday (02/28). Pt states that she was having pain yesterday but denies any pain today. Pt denies any other complaints. ANALYST DEVELOPER documented in this encounter Miscellaneous Notes * Post-Procedure Note - Komal Dsouza MD - 03/05/2024 10:23 AM ETL ANALYST DEVELOPER Radiology Brief Post Procedure Note Attending: Víctor Design Agent: Meet Sedation/Anesthesia: Local Pre-Op/Pre-Procedure Diagnosis: ESRD Post-Op/Post-Procedure Diagnosis: same Procedure Performed: Tunneled line exchange Procedure Findings: Successful exchange of LIJ tunneled line with 27 cm tip to cuff Duraflow, with tip terminating at the right atrium Complications: None Estimated Blood Loss: < 30 ml Specimens: None Condition: Stable Full report to follow. ANALYST DEVELOPER * Pre-Procedure Note - Komal Dsouza MD - 03/05/2024 8:05 AM ETL ANALYST DEVELOPER Radiology Procedure Plan Indication: 73 year old female with ESRD receiving dialysis MWF via [facility], on 03/03 red lumen was not drawing back or flushing unable to complete dialysis. External component of catheter undamaged, skin sutures are broken and catheter appears retracted. Patient ok with local only. Aspirin 81 mg. Labs WNL. Planned Procedure: Exchanged tunneled line ANALYST DEVELOPER * ED Re-evaluation Note - Desmond Hairston MD - 03/05/2024 6:51 AM ETL ANALYST DEVELOPER ED Re-evaluation TRANSITION OF CARE: Desmond Fernández MD, am taking signout from Dr. Jim (Resident). Summary: 73 y.o. female 73 F with hx ESRD on HD MWF (anuric), HTN, undiagnosed COPD who presents due to dialysis line not working during her Saturday 03/03 session, and she was sent to the ED by her physician 03/04 Pending: IR evaluation Dispo: Anticipate discharge ED Course as of 03/05/24720 Time: 03/05 523 Comment: Check for metabolic derangements in case of urgent dialysis needs By: Kamila Jim MD Time: 03/05 529 Comment: Will have RN attempt to flush line. If unable then will order alteplase. Plan to consult IR in the AM By: Kamila Jim MD Time: 03/05 542 Comment: Blue port is patent (flushes and pulls back), red catheter does not pull back (flush not attempted). By: Kamila Jim MD Time: 03/05 637 Comment: IR consulted, resident is on their way to see the patient, will staff with attending and see about scheduling today. Notified RN to draw CMP as it was not drawn with last shift By: Kamila Jim MD Time: 03/05 710 Comment: Recieved signout at shift change from Dr. Sheridan. Reviewed presentation, pertinent labs, imaging and additional workup/consultations and anticipated disposition. Dialysis tunneled IJ line malfunction, P IR eval, no dialysis since last Sunday By: Mauricio Geronimo MD Richards, Bradley Arthur, MD Resident 03/05/24720 ANALYST DEVELOPER * ED Procedure Note - Viktor Moore MD - 03/04/2024 10:54 PM ETL ANALYST DEVELOPER Associated Order(s): ECG 12 lead Procedure ECG 12 lead Date/Time: 03/04/2024 10:54 PM Performed by: Viktor Moore MD Authorized by: Layton mAaro MD Normal sinus rhythm with heart rate of 80 beats per minute. Normal OH/QRS/QTC. No ischemic ST segment or T-wave changes. No significant change from comparison 02/25/2024. No acute injury pattern Viktor Moore MD 03/04/242253 ANALYST DEVELOPER * ED Pre-Arrival Note - Luz Maria Flor RN - 03/04/2024 6:25 PM CST Pre-Arrival Note Pt BIBEMS due to a dialysis catheter problem. Pt tried to get dialysis yesterday and but it failed and the doctor sent her here today. Pt got her dialysis on Sunday of last week. Luz Maria Flor RN ANALYST DEVELOPER documented in this encounter Plan of Treatment Not on file documented as of this encounter Procedures Procedure Name Priority Date/Time Associated Diagnosis Comments EXCHANGE TUNNELED LINE ED 10:02 AM ETL ANALYST DEVELOPER EGFR STAT 03/05/2024 7:37 AM ETL ANALYST DEVELOPER DIFFERENTIAL AUTO STAT 03/05/2024 7:3 7 AM ETL ANALYST DEVELOPER CBC WITH AUTO DIFFERENTIAL STAT 03/05/2024 7:37 AM ETL ANALYST DEVELOPER COMPREHENSIVE METABOLIC PANEL STAT 03/05/2024 7:37 AM ETL ANALYST DEVELOPER ECG 12-LEAD Routine 03/04/2024 10:54 PM ETL ANALYST DEVELOPER documented in this encounter Results * IR Exchange Tunneled CVC (03/05/2024 10:02 AM ETL ANALYST DEVELOPER) Anatomical Region Laterality Modality Body Left X-Ray Angiograph y 03/05/2024 11:5 8 AM ETL ANALYST DEVELOPER Impressions 03/05/2024 2:09 PM ETL ANALYST DEVELOPER Successful fluoroscopically guided tunneled central venous catheter [...] Latrell Renee M.D. Narrative 03/05/2024 2:09 PM ETL ANALYST DEVELOPER EXAMINATION: ??LEFT FLUOROSCOPICALLY GUIDED TUNNELED CENTRAL VENOUS [...] was obtained. Prior to beginning the procedure, Hamilton Protocol was performed to confirm the patient's [...] was obtained. Prior to beginning the procedure, Hamilton Protocol was performed to confirm the patient's [...] Result * (ABNORMAL) eGFR (03/05/2024 7:37 AM ETL ANALYST DEVELOPER) eGFR 6(L) >=60 mL/min/1. 73 m2 Comment: [...] last reviewed 2021. Blood 03/05/2024 7:37 AM ETL ANALYST DEVELOPER 03/05/2024 7:53 AM ETL ANALYST DEVELOPER us Layton Amaro MD LAB BLOOD ORDERABLES Final Result [facility] Department [place] [address] * Differential, auto (03/05/2024 7:37 AM ETL ANALYST DEVELOPER) Neutrophil abs 4.6 1.5 - 6.5 K/cumm Imm gran abs 0.0 0.0 - 0.1 K/cumm [facility] Lymphocyte abs 1.8 0.8 - 3.3 K/cumm [facility] Monocyte abs 0.7 0.2 - 0.8 K/cumm [facility] Eosinophil abs 0.4 0.0 - 0.5 K/cumm [facility] Basophil abs 0.1 0.0 - 0.1 K/cumm [facility] Neutrophil pct 60.6 % [facility] Comment: Interpretive Data Percent cell count reference ranges are not reported, since discordance with absolute values may lead to misinterpretation of CBC data. Current Interpretive Data was last revised on 2017. Imm gran pct 0.4 % [facility] Comment: Interpretive Data Percent cell count reference ranges are not reported, since discordance with absolute values may lead to misinterpretation of CBC data. Current Interpretive Data was last revised on 2017. Lymphocyte pct 23.6 % [facility] Comment: Interpretive Data Percent cell count reference ranges are not reported, since discordance with absolute values may lead to misinterpretation of CBC data. Current Interpretive Data was last revised on 2017. Monocyte pct 9.8 % [facility] Comment: Interpretive Data Percent cell count reference ranges are not reported, since discordance with absolute values may lead to misinterpretation of CBC data. Current Interpretive Data was last revised on 2017. Eosinophil pct 4.8 % [facility] Comment: Interpretive Data Percent cell count reference ranges are not reported, since discordance with absolute values may lead to misinterpretation of CBC data. Current Interpretive Data was last revised on 2017. Basophil pct 0.8 % [facility] Comment: Interpretive Data Percent cell count reference ranges are not reported, since discordance with absolute values may lead to misinterpretation of CBC data. Current Interpretive Data was last revised on 2017. Blood 03/05/2024 7:37 AM ETL ANALYST DEVELOPER 03/05/2024 7:54 AM ETL ANALYST DEVELOPER us Layton Amaro MD LAB BLOOD ORDERABLES Final Result [facility] [place] [address] * (ABNORMAL) Comprehensive metabolic panel (03/05/2024 7:37 AM ETL ANALYST DEVELOPER) Sodium 141 135 - 145 mmol/L Potassium, pl 5.0(H) 3.3 - 4.9 mmol/L [facility] Chloride 103 97 - 110 mmol/L [facility] CO2 24 22 - 32 mmol/L [facility] Anion gap 14 2 - 15 mmol/L [facility] BUN 40(H) 6 - 25 mg/dL [facility] Creatinine 6.92(H) 0.60 - 1.10 mg/dL [facility] Glucose 87 70 - 199 mg/dL [facility] Comment: Interpretive Data Fasting glucose >/= 126 [...] 2022. Calcium 9.7 8.5 - 10.3 mg/dL [facility] Bilirubin, total 0.3 0.1 - 1.2 mg/dL [facility] Protein, pl 6.7 6.5 - 8.5 g/dL [facility] Albumin 4.1 3.5 - 5.0 g/dL [facility] Alk phos 69 40 - 130 Units/L [facility] ALT 13 7 - 45 Units/L [facility] AST 14 10 - 45 Units/L [facility] Blood 03/05/2024 7:37 AM ETL ANALYST DEVELOPER 03/05/2024 7:53 AM ETL ANALYST DEVELOPER us Layton Sheridan MD LAB BLOOD ORDERABLES Final Result [facility] Department [place] [address] * (ABNORMAL) CBC with auto differential (03/05/2024 7:37 AM ETL ANALYST DEVELOPER) WBC 7.5 3.8 - 9.9 K/cumm Hgb 11.3(L) 11.9 - 15.5 g/dL [facility] Hct 33.9(L) 35.6 - 45.5 % [facility] Plt 233 150 - 400 K/cumm [facility] MPV 10.0 9.1 - 12.3 fL [facility] RBC 3.21(L) 3.90 - 5.20 M/cumm [facility] MCV 105.6(H) 81.3 - 96.4 fL [facility] MCH 35.2(H) 27.1 - 33.3 pg [facility] MCHC 33.3 32.3 - 35.7 g/dL [facility] RDW CV 13.4 11.1 - 14.9 % [facility] RDW SD 51.7(H) 35.7 - 48.1 fL [facility] NRBC abs 0.00 0.00 - 0.01 K/cumm [facility] Blood 03/05/2024 7:37 AM ETL ANALYST DEVELOPER 03/05/2024 7:54 AM ETL ANALYST DEVELOPER us Layton Sheridan MD LAB BLOOD ORDERABLES Final Result [facility] Department [place] [address] * ECG 12-LEAD (03/04/2024 10:54 PM ETL ANALYST DEVELOPER) Narrative [facility] - 03/04/2024 10:54 PM ETL ANALYST DEVELOPER Viktor Moore MD ? 03/04/2024 10:54 PM ECG 12 lead Date/Time: 03/04/2024 10:54 PM Performed by: Viktor Moore MD Authorized by: Layton Amaro MD ?? us Layton Sheridan MD ECG ORDERABLES Final Resu lt [facility] documented in this encounter Visit Diagnoses Diagnosis Complication associated with dialysis catheter- Primary ESRD (end stage renal disease) on dialysis (HCC) End stage renal disease documented in this encounter Administered Medications Inactive Administered Medications - up to 3 most recent administrations Medication Order MAR Action Action Date Dose Rate Site acetaminophen (TYLENOL) tablet 1,000 mg 1,000 mg, oral, Once, On Sun03/04/24 at 2237, For 1 dose Given 03/04/2024 11:16 PM ETL ANALYST DEVELOPER 1,000 mg heparin 1,000 unit/mL injection 1.5-6.9 mL 1.5-6.9 mL, intra-catheter, Once, On Sun03/05/24 at 0546, For 1 dose, Indwell volume of catheter lumens post treatment. Give volume based upon registry np's recommendation (usual range 1.2 - 3 mL) in each lumen., Indications: prevent clotting in catheter; please place 3mL for dwellIndications:prevent clotting in catheter; please place 3mL for dwell Given 03/05/2024 5:47 AM ETL ANALYST DEVELOPER 3 mL heparin 1,000 unit/mL injection As needed, Starting on Sun03/05/24 at 0954, Intra-Op Given 03/05/2024 9:54 AM ETL ANALYST DEVELOPER 5,000 Units lidocaine (PF) (XYLOCAINE) 10 mg/mL (1 %) preservative free injection As needed, Starting on Sun03/05/24 at 0941, Intra-Procedure (IR), Indications: Administration of Local AnesthesiaIndications:Admin istration of Local Anesthesia Given 03/05/2024 9:41 AM ETL ANALYST DEVELOPER 9 mg Left Chest documented in this encounter Active and Recently Administered Medications Times are shown in ETL ANALYST DEVELOPER. Scheduled Medication Order 03/03/2024 03/04/2024 03/05/2024 acetaminophen (TYLENOL) tablet 1,000 mg (COMPLETED) 1,000 mg, oral, Once, On Sun03/04/24 at 2237, For 1 dose 2316 (Given - Provider: Jenae Rodarte RN) heparin 1,000 unit/mL injection 1.5-6.9 mL (COMPLETED) 1.5-6.9 mL, intra-catheter, Once, On Sun03/05/24 at 0546, For 1 dose, Indwell volume of catheter lumens post treatment. Give volume based upon registry np's recommendation (usual range 1.2 - 3 mL) in each lumen., Indications: prevent clotting in catheter; please place 3mL for dwell 0547 (Given - Provid er: Suha Patel RN) PRN Medication Order 03/03/2024 03/04/2024 03/05/2024 heparin 1,000 unit/mL injection (COMPLETED) As needed, Starting on Sun03/05/24 at 0954, Intra-Op 0954 (Given - Provid er: Komal Dsouza MD) lidocaine (PF) (XYLOCAINE) 10 mg/mL (1 %) preservative free injection (COMPLETED) As needed, Starting on Sun03/05/24 at 0941, Intra-Procedure (IR), Indications: Administration of Local Anesthesia 0941 (Given - Provid er: Komal Dsouza MD) documented in this encounter Care Teams Case Therapist Relationship Specialty Start Date End Date Jasson Cueva MD [address] [place] [id number] PCP - General Family Medicine 02/27/24 documented as of this encounter
--- OUTSIDE RECORDS SUMMARY | 2024-03-19 19:04 | XMS_ITS | Encounter Summary ---
Author Organization [facility] Healthcare Address [address] [place] [address] Care Team Providers Care Computer Security Manager Name Role Phone Jasson Cueva MD Primary Care Provider [phone]- [phone] Reason for Visit * MRI/CAT/PET Scan (Routine) - Closed Specialty Diagnoses / Procedures Referred By Contac t Referred To Contact Procedures Neuro CT Outside Reference Angel Arriaga MD [address] [facility] [address] [place] [address] Phone: tel: fax: Referral ID Status Reason Start Date Expiration Date Visits Re quested Visits Authorized [id number] Closed 03/04/2024 04/03/2025 1 1 Encounter Details Date Type Department Care Team (Latest Contact Info) Description 03/04/2024 9:05 AM CONTACT LENS BLOCKER AND CUTTER - 03/04/2024 11:59 PM [facility] Hospital Encounter [facility] [address] [place] [id number] Discharge Disposition: Discharge to home or self care Social History Tobacco Use Types Packs/Day Years Used Date Smoking Tobacco: Former Cigarettes [facility] Utilities Answer Date Recorded In the past 12 months has [employer] electric, gas, oil, or water company threatened [...] often do you attend chur ch or worship services? Never 02/28/2023 Do you belong to [...] slept in a snf (including now)? No 02/28/2023 Personal Safety Answer Date Recorded Have you ever been in or are you currently in a harmful physical or emotional relationship or is someone making you feel afraid or unsafe? Denies 03/05/2024 Comments Unknown Sex and Gender Information Value Date Recorded Sex Assigned at Not on file Legal Sex Female 7:00 PM CONTACT LENS BLOCKER AND CUTTER Gender Identity Not on file Sexual [...] Comments NEURO CT OUTSIDE REFERENCE Routine 03/04/2024 9:05 AM CONTACT LENS BLOCKER AND CUTTER documented in this encounter Results * Neuro CT Outside Reference (03/04/2024 9:05 AM CONTACT LENS BLOCKER AND CUTTER) Impressions [facility] - 03/04/2024 9:05 AM CONTACT LENS BLOCKER AND CUTTER These images are for Reference purposes only and have not been reviewed by [facility] Radiology. ??There will be no report generated by a [facility] Radiologist. Narrative RAD_P[facility] - 03/04/2024 9:05 AM CONTACT LENS BLOCKER AND CUTTER EXAMINATION: ??Images For Reference Purposes Only us Angel Arriaga MD IMG CT PROCEDURES Final Re sult [facility] documented in this encounter Visit Diagnoses Not on filedocumented in this encounter Care Teams Computer Security Manager Relationship Specialty Start Date End Date Jasson Cueva MD [address] [place] [id number] PCP - General Family Medicine 02/27/24 documented as of this encounter
--- OUTSIDE RECORDS SUMMARY | 2024-03-19 19:04 | XMS_ITS | Encounter Summary ---
Author Organization [facility] Healthcare Address [address] [place] [address] Care Team Providers Care Air Control/Anti Air Warfare Officer Name Role Phone Unavailable Primary Care Provider Unavailabl e Encounter Details Date Type Department Care Team (Latest Contact Info) Description 02/27/2023 - 02/27/2023 11:59 PM BATHHOUSE KEEPER Hospital Encounter [facility] Outside Images [address] [place] [address] Discharge Disposition: Discharge to home or self care Social History Tobacco Use Types Packs/Day Years Used Date Smoking Tobacco: Never Assessed [facility] Utilities Answer Date Recorded In the past 12 months has [employer] electric, gas, oil, or water company threatened [...] attend chur ch or hindu services? Never 02/28/2023 Do you belong to any clubs o r organizations such as mormon groups, unions, fraternal or athletic groups, or [...] slept in a half-way (including now)? No 02/28/2023 Personal Safety Answer Date Recorded Have you ever been in or are you currently in a harmful physical or emotional relationship or is someone making you feel afraid or unsafe? Denies 02/28/2023 Comments Unknown Sex and Gender Information Value Date Recorded Sex Assigned at Not on file Legal Sex Female 7:00 PM BATHHOUSE KEEPER Gender Identity Not on file Sexual [...] daily 02/29/2024 documented as of this encounter Discharge Disposition Disposition Code Departure Means Destination Discharge to home or self care documented in this encounter Plan of Treatment Not on file documented as of this encounter Procedures Procedure Name Priority Date/Time Associated Diagnosis Comments CT BODY OUTSIDE REFERENCE Routine 02/27/2023 12:00 AM BATHHOUSE KEEPER documented in this encounter Results * CT Body Outside Reference (02/27/2023 12:00 AM BATHHOUSE KEEPER) Narrative [facility]ABRIELLA_[facility] - 04/18/2023 7:18 AM BATHHOUSE KEEPER This order has been auto-finalized and does not contain a result. us Provider Transcribed Order IMG CT PROCEDURES Fin al Result JAKE_DEBORAH_FERNANDO_[facility] documented in this encounter Visit Diagnoses Not on filedocumented in this encounter
--- OUTSIDE RECORDS SUMMARY | 2024-03-19 19:04 | XMS_ITS | Encounter Summary ---
Author Organization [facility] Healthcare Address [address] [place] [address] Care Team Providers Care Celery Cutter Name Role Phone Jasson Cueva MD Primary Care Provider [phone]- [phone] Reason for Visit * MRI/CAT/PET Scan (Routine) - Closed Specialty Diagnoses / Procedures Referred By Contac t Referred To Contact Procedures Neuro CT Outside Reference Angel Arriaga MD [address] [facility] [address] [place] [address] Phone: tel: fax: Referral ID Status Reason Start Date Expiration Date Visits Re quested Visits Authorized [id number] Closed 03/04/2024 04/03/2025 1 1 Encounter Details Date Type Department Care Team (Latest Contact Info) Description 03/04/2024 9:22 AM PUBLISHING AGENT - 03/04/2024 11:59 PM [facility] Hospital Encounter [facility] [address] [place] [address] Discharge Disposition: Discharge to home or self care Social History Tobacco Use Types Packs/Day Years Used Date Smoking Tobacco: Former Cigarettes [facility] Utilities Answer Date Recorded In the past 12 months has [employer] electric, gas, oil, or water company threatened [...] any clubs o r organizations such as presybeterian groups, unions, fraternal or athletic groups, or [...] [facility] (including now)? No 02/28/2023 Personal Safety Answer Date Recorded Have you ever been in or are you currently in a harmful physical or emotional relationship or is someone making you feel afraid or unsafe? Denies 03/05/2024 Comments Unknown Sex and Gender Information Value Date Recorded Sex Assigned at Not on file Legal Sex Female 7:00 PM PUBLISHING AGENT Gender Identity Not on file Sexual [...] Comments NEURO CT OUTSIDE REFERENCE Routine 03/04/2024 9:22 AM PUBLISHING AGENT documented in this encounter Results * Neuro CT Outside Reference (03/04/2024 9:22 AM PUBLISHING AGENT) Impressions [facility] - 03/04/2024 9:22 AM PUBLISHING AGENT These images are for Reference purposes only and have not been reviewed by [facility]. ??There will be no report generated by a [facility] Radiologist. Narrative RAD_PACS[facility] - 03/04/2024 9:22 AM PUBLISHING AGENT EXAMINATION: ??Images For Reference Purposes Only us Angel Arriaga MD IMG CT PROCEDURES Final Re sult [facility] documented in this encounter Visit Diagnoses Not on filedocumented in this encounter Care Teams Celery Cutter Relationship Specialty Start Date End Date Jasson Cueva MD [address] [place] [phone] PCP - General Family Medicine 02/27/24 documented as of this encounter
--- OUTSIDE RECORDS SUMMARY | 2024-03-19 19:04 | XMS_ITS | Encounter Summary ---
Author Organization [facility] Healthcare Address [address] [place] [address] Care Team Providers Care Nut Picker Name Role Phone Jasson Cueva MD Primary Care Provider [phone]- [phone] Reason for Visit * MRI/CAT/PET Scan (Routine) - Closed Specialty Diagnoses / Procedures Referred By Contac t Referred To Contact Procedures Neuro MR Outside Reference Angel Arriaga MD [address] [facility] [address] [address] Phone: tel: fax: Referral ID Status Reason Start Date Expiration Date Visits Re quested Visits Authorized [id number] Closed 03/04/2024 04/03/2025 1 1 Encounter Details Date Type Department Care Team (Latest Contact Info) Description 03/04/2024 9:40 AM CLIENT SUCCESS SPECIALIST - 03/04/2024 11:59 PM [facility] Hospital Encounter [facility] [address] [place] [address] Discharge Disposition: Discharge to home or self care Social History Tobacco Use Types Packs/Day Years Used Date Smoking Tobacco: Former Cigarettes [facility] Utilities Answer Date Recorded In the past 12 months has [employer] electric, gas, oil, or water company threatened [...] often do you attend chur ch or anabaptism services? Never 02/28/2023 Do you belong to any clubs o r organizations such as baptism groups, unions, fraternal or athletic groups, or [...] on file Legal Sex Female 7:00 PM CLIENT SUCCESS SPECIALIST Gender Identity Not on file Sexual [...] Comments NEURO MR OUTSIDE REFERENCE Routine 03/04/2024 9:40 AM CLIENT SUCCESS SPECIALIST documented in this encounter Results * Neuro MR Outside Reference (03/04/2024 9:40 AM CLIENT SUCCESS SPECIALIST) Impressions RAD[facility]ACS[facility] - 03/04/2024 9:40 AM CLIENT SUCCESS SPECIALIST These images are for Reference purposes only and have not been reviewed by [facility] Radiology. ??There will be no report generated by a [facility] Radiologist. Narrative RAD_P[facility] - 03/04/2024 9:40 AM CLIENT SUCCESS SPECIALIST EXAMINATION: ??Images For Reference Purposes Only us Angel Arriaga MD IMG MRI PROCEDURES Final R esult [facility] documented in this encounter Visit Diagnoses Not on filedocumented in this encounter Care Teams Nut Picker Relationship Specialty Start Date End Date Jasson Cueva MD [address] [place] [phone] PCP - General Family Medicine 02/27/24 documented as of this encounter
--- OUTSIDE RECORDS SUMMARY | 2024-03-19 19:04 | XMS_ITS ---
Author Organization [facility] al Address [address] [place] [address] Care Team Providers Care Animal Anatomy Teacher Name Role Phone Jasson Cueva MD Primary Care Provider Dialysis Plan of Treatment Dialysis Prescription As-Of Date Prescribed Dry Weight Primary Se tting 02/28/2024 Acute Dialysis S CA Instructions Modality Prescribed Duration (hours) Frequency Blood Flow Rate Conventional Hemodialysis 3:00 30 0 mL/min Dialysis Access Type Location Dialysate Sodium Level Potassium Level Calcium Level Bicarbonate Level 138 mEq/L 35 mEq/L from Last 30 Days Dialysis Access Sites Type Status Location Placement Date Removal Da te Hemodialysis Cath Double 03/05/24 Tunneled catheter Left Internal Jugular Active Left Neck (side) - Anterior 03/05/2024 AV fistula Active Left Antecubital Fossa 02/18/2024 Hemodialysis Cath Double Left Chest Inactive Left Breast 03/05/2024 Historical Dialysis Procedures Date BP Pre BP Post Weight Pre Weight Post Treatment Duration Start Time End Time Achieved BFR Vascular Access from Last 30 Days Procedures Procedure Name Priority Date/Time Associated Diagnosis Comments EXCHANGE TUNNELED LINE ED 03/05/2024 10:02 AM JACK WINDER EGFR STAT 03/05/2024 7:37 AM JACK WINDER DIFFERENTIAL AUTO STAT 03/05/2024 7:3 7 AM JACK WINDER COMPREHENSIVE METABOLIC PANEL STAT 03/05/2024 7:37 AM JACK WINDER CBC WITH AUTO DIFFERENTIAL STAT 03/05/2024 7:37 AM JACK WINDER ECG 12-LEAD Routine 03/04/2024 10:54 PM JACK WINDER NEURO MR OUTSIDE REFERENCE Routine 03/04/2024 9:40 AM JACK WINDER US TRANSFER OF OUTSIDE FILMS Routine 03/04/2024 9:38 [address] OUTSIDE REFERENCE Routine 03/04/2024 9:22 AM JACK WINDER NEURO MR OUTSIDE REFERENCE Routine 03/04/2024 9:[address] OUTSIDE REFERENCE Routine 03/04/2024 9:05 [address] OUTSIDE REFERENCE Routine 03/04/2024 8:23 AM JACK WINDER NEURO MR OUTSIDE REFERENCE Routine 03/04/2024 8:[address] OUTSIDE REFERENCE Routine 03/04/2024 8:07 [address] OUTSIDE REFERENCE Routine 03/04/2024 7:57 AM [address]ACK WINDER [address] OUTSIDE REFERENCE Routine 03/04/2024 7:54 AM JACK WINDER EGFR Routine 02/28/2024 8:13 PM JACK WINDER BASIC METABOLIC PANEL Routine 02/28/2024 8:13 PM JACK WINDER CBC WITHOUT DIFFERENTIAL Routine 02/28/2024 8:13 PM JACK WINDER HEMODIALYSIS Routine 02/28/2024 1:58 PM JACK WINDER EGFR Routine 02/27/2024 6:38 PM JACK WINDER BASIC METABOLIC PANEL Routine 02/27/2024 6:38 PM JACK WINDER CBC WITHOUT DIFFERENTIAL Routine 02/27/2024 6:38 PM JACK WINDER EGFR Routine 02/26/2024 10:00 PM JACK WINDER BASIC METABOLIC PANEL Routine 02/26/2024 10:00 PM JACK WINDER CBC WITHOUT DIFFERENTIAL Routine 02/26/2024 10:00 PM JACK WINDER HEPATITIS B SURFACE ANTIGEN STAT 02/26/2024 2:36 PM JACK WINDER ASBESTOS CLOTH INSPECTOR EVALUATE AND TREAT FIBEROPTIC ENDOSCOPIC SWALLOW STAT 02/26/2024 9:59 AM JACK WINDER EGFR Timed 02/25/2024 10:53 PM JACK WINDER BASIC METABOLIC PANEL Timed 02/25/2024 10:53 PM JACK WINDER CBC WITHOUT DIFFERENTIAL Routine 02/25/2024 9:45 PM JACK WINDER BLOOD GAS, VENOUS STAT 02/25/2024 11: 18 AM JACK WINDER ECG 12-LEAD Routine 02/25/2024 11:07 AM JACK WINDER EGFR Routine 02/24/2024 8:10 PM JACK WINDER CALCIUM, IONIZED Routine 02/24/2024 8:10 PM JACK WINDER BASIC METABOLIC PANEL Routine 02/24/2024 8:10 PM JACK WINDER CBC WITHOUT DIFFERENTIAL Routine 02/24/2024 8:10 PM JACK WINDER DRUGS OF ABUSE SCREEN, URINE WITH REFLEX CONFIRMATION Routine 02/24/2024 1:51 AM JACK WINDER URINALYSIS, MICROSCOPIC ONLY Routine 02/24/2024 1:51 AM JACK WINDER URINALYSIS AND REFLEX TO MICROSCOPIC AND CULTURE Routine 02/24/2024 1:51 AM JACK WINDER EEG Routine 02/24/2024 1:16 AM JACK WINDER B CHECK SAMPLE STAT 02/24/2024 12:05 AM JACK WINDER CALCIUM, IONIZED STAT 02/23/2024 10:4 7 PM JACK WINDER TROPONIN I HIGH-SENSITIVITY 4-HOUR Timed 02/23/2024 10:47 PM JACK WINDER HEMOGLOBIN A1C STAT 02/23/2024 9:23 PM JACK WINDER LIPID PANEL Timed 02/23/2024 9:23 PM JACK WINDER EGFR Timed 02/23/2024 9:23 PM JACK WINDER PHOSPHORUS Timed 02/23/2024 9:23 PM JACK WINDER MAGNESIUM Timed 02/23/2024 9:23 PM JACK WINDER COMPREHENSIVE METABOLIC PANEL Timed 02/23/2024 9:23 PM JACK WINDER PROTIME-INR STAT 02/23/2024 9:23 PM JACK WINDER APTT STAT 02/23/2024 9:23 PM JACK WINDER TYPE AND SCREEN STAT 02/23/2024 9:23 PM JACK WINDER CBC WITHOUT DIFFERENTIAL STAT 02/23/2024 9:23 PM JACK WINDER TROPONIN I HIGH-SENSITIVITY 2-HOUR Timed 02/23/2024 9:23 PM JACK WINDER RESPIRATORY PATHOGEN PANEL Routine 02/23/2024 8:58 PM JACK WINDER BLOOD CULTURE STAT 02/23/2024 8:58 PM JACK WINDER BLOOD CULTURE STAT 02/23/2024 8:58 PM JACK WINDER ECG 12-LEAD STAT 02/23/2024 8:29 PM JACK WINDER POCT GLUCOSE DEVICE Routine 02/23/2024 8 :20 PM JACK WINDER MRI BRAIN WO CONTRAST Critical/Life-T hreatening 02/23/2024 8:07 PM JACK WINDER XR CHEST 1 VIEW IP Routine 02/23/2024 7:36 PM JACK WINDER ECG 12-LEAD STAT 02/23/2024 7:00 PM JACK WINDER WY CRITICAL CARE ILL/INJURED PATIENT INIT 30-74 MIN Routine 02/23/2024 6:58 PM JACK WINDER EGFR STAT 02/23/2024 6:40 PM JACK WINDER MAGNESIUM STAT 02/23/2024 6:40 PM JACK WINDER DIFFERENTIAL AUTO STAT 02/23/2024 6:4 0 PM JACK WINDER TROPONIN I HIGH-SENSITIVITY SERIES (BASELINE, 2HR, 4HR, 6HR) STAT 02/23/2024 6:40 PM JACK WINDER APTT STAT 02/23/2024 6:40 PM JACK WINDER COMPREHENSIVE METABOLIC PANEL STAT 02/23/2024 6:40 PM JACK WINDER CBC WITH AUTO DIFFERENTIAL STAT 02/23/2024 6:[address] STROKE PROTOCOL W WO CONTRAST Critical/Life-T hreatening 02/23/2024 6:35 PM JACK WINDER POCT PROTHROMBIN TIME, WHOLE BLOOD Routine 02/23/2024 6:22 PM JACK WINDER POCT GLUCOSE DEVICE Routine 02/23/2024 6 :21 PM JACK WINDER from Last 3 Months Allergies No known [...] directed by MD. 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 Never 02/28/2023 Do you belong to [...] place to sleep or slept in a detention (including now)? No 02/28/2023 Personal Safety Answer Date Recorded Have you ever been in or are you currently in a harmful physical or emotional relationship or is someone making you feel afraid or unsafe? Denies 03/05/2024 Comments Unknown Sex and Gender Information Value Date Recorded Sex Assigned at Not on file Legal Sex Female 7:00 PM JACK WINDER Gender Identity Not on file Sexual Orientation Not on file Last Filed Vital Signs Vital Sign Reading Time Taken Comments Blood Pressure 142/77 03/05/2024 12:00 PM JACK WINDER Pulse 71 03/05/2024 12:00 PM JACK WINDER Temperature 36.2 ??C (97.1 ??F) 03/05/2024 1:36 AM CS T Respiratory Rate 16 03/05/2024 9:05 AM JACK WINDER Oxygen Saturation 92% 03/05/2024 12: 00 PM JACK WINDER Inhaled Oxygen Concentration - - Weight 74.7 kg (164 lb 10.9 oz) 03/04/2024 6:46 PM JACK WINDER Height 170.2 cm (5' 7 ) 03/04/2024 6:46 PM JACK WINDER Body Mass Index 25.79 03/04/2024 6:46 PM JACK WINDER Results * IR Exchange Tunneled CVC (03/05/2024 10:02 AM JACK WINDER) Anatomical Region Laterality Modality Body Left X-Ray Angiograph y 03/05/2024 11:5 8 AM JACK WINDER Impressions 03/05/2024 2:09 PM JACK WINDER Successful fluoroscopically guided tunneled central venous catheter [...] Latrell Renee M.D. Narrative 03/05/2024 2:09 PM JACK WINDER EXAMINATION: ??LEFT FLUOROSCOPICALLY GUIDED TUNNELED CENTRAL VENOUS [...] was obtained. Prior to beginning the procedure, Bovina Protocol was performed to confirm the patient's [...] was obtained. Prior to beginning the procedure, Bovina Protocol was performed to confirm the patient's [...] Result * (ABNORMAL) eGFR (03/05/2024 7:37 AM JACK WINDER) [facility] eGFR 6(L) >=60 mL/min/1. 73 m2 Comment: [...] last reviewed 2021. Blood 03/05/2024 7:37 AM JACK WINDER 03/05/2024 7:53 AM JACK WINDER us Layton Amaro MD LAB BLOOD ORDERABLES Final Result [facility] Department [place] [address] * Differential, auto (03/05/2024 7:37 AM JACK WINDER) Neutrophil abs 4.6 1.5 - 6.5 K/cumm Imm gran abs 0.0 0.0 - 0.1 K/cumm [facility] Lymphocyte abs 1.8 0.8 - 3.3 K/cumm [facility] Monocyte abs 0.7 0.2 - 0.8 K/cumm [facility] Eosinophil abs 0.4 0.0 - 0.5 K/cumm [facility] Basophil abs 0.1 0.0 - 0.1 K/cumm [facility] Neutrophil pct 60.6 % [facility] Comment: Interpretive Data Percent cell count reference ranges are not reported, since discordance with absolute values may lead to misinterpretation of CBC data. Current Interpretive Data was last revised on 2017. Imm gran pct 0.4 % [facility] Comment: Interpretive Data Percent cell count reference ranges are not reported, since discordance with absolute values may lead to misinterpretation of CBC data. Current Interpretive Data was last revised on 2017. Lymphocyte pct 23.6 % [facility] Comment: Interpretive Data Percent cell count reference ranges are not reported, since discordance with absolute values may lead to misinterpretation of CBC data. Current Interpretive Data was last revised on 2017. Monocyte pct 9.8 % [facility] Comment: Interpretive Data Percent cell count reference ranges are not reported, since discordance with absolute values may lead to misinterpretation of CBC data. Current Interpretive Data was last revised on 2017. Eosinophil pct 4.8 % [facility] Comment: Interpretive Data Percent cell count reference ranges are not reported, since discordance with absolute values may lead to misinterpretation of CBC data. Current Interpretive Data was last revised on 2017. Basophil pct 0.8 % [facility] Comment: Interpretive Data Percent cell count reference ranges are not reported, since discordance with absolute values may lead to misinterpretation of CBC data. Current Interpretive Data was last revised on 2017. Blood 03/05/2024 7:37 AM JACK WINDER 03/05/2024 7:54 AM JACK WINDER Layton Amaro MD LAB BLOOD ORDERABLES Final Result [facility] Department [place] [address] * (ABNORMAL) CBC with auto differential (03/05/2024 7:37 AM JACK WINDER) WBC 7.5 3.8 - 9.9 K/cumm Hgb 11.3(L) 11.9 - 15.5 g/dL [facility] Hct 33.9(L) 35.6 - 45.5 % [facility] Plt 233 150 - 400 K/cumm [facility] MPV 10.0 9.1 - 12.3 fL [facility] RBC 3.21(L) 3.90 - 5.20 M/cumm [facility] MCV 105.6(H) 81.3 - 96.4 fL [facility] MCH 35.2(H) 27.1 - 33.3 pg [facility] MCHC 33.3 32.3 - 35.7 g/dL [facility] RDW CV 13.4 11.1 - 14.9 % [facility] RDW SD 51.7(H) 35.7 - 48.1 fL [facility] NRBC abs 0.00 0.00 - 0.01 K/cumm [facility] Blood 03/05/2024 7:37 AM JACK WINDER 03/05/2024 7:54 AM JACK WINDER Layton Sheridan MD LAB BLOOD ORDERABLES Final Result [facility] Department [place] [address] * (ABNORMAL) Comprehensive metabolic panel (03/05/2024 7:37 AM JACK WINDER) Sodium 141 135 - 145 mmol/L Potassium, pl 5.0(H) 3.3 - 4.9 mmol/L [facility] Chloride 103 97 - 110 mmol/L [facility] CO2 24 22 - 32 mmol/L [facility] Anion gap 14 2 - 15 mmol/L [facility] BUN 40(H) 6 - 25 mg/dL [facility] Creatinine 6.92(H) 0.60 - 1.10 mg/dL [facility] Glucose 87 70 - 199 mg/dL [facility] Comment: Interpretive Data Fasting glucose >/= [...] 2022. Calcium 9.7 8.5 - 10.3 mg/dL [facility] Bilirubin, total 0.3 0.1 - 1.2 mg/dL [facility] Protein, pl 6.7 6.5 - 8.5 g/dL [facility] Albumin 4.1 3.5 - 5.0 g/dL [facility] Alk phos 69 40 - 130 Units/L [facility] ALT 13 7 - 45 Units/L [facility] AST 14 10 - 45 Units/L [facility] Blood 03/05/2024 7:37 AM JACK WINDER 03/05/2024 7:53 AM JACK WINDER us Layton Sheridan MD LAB BLOOD ORDERABLES Final Result Performing Organization Address [facility] de Phone Number [facility] Department [place] [address] * ECG 12-LEAD (03/04/2024 10:54 PM JACK WINDER) Narrative [facility] - 03/04/2024 10:54 PM JACK WINDER Viktor Moore MD ? 03/04/2024 10:54 PM ECG 12 lead Date/Time: 03/04/2024 10:54 PM Performed by: Viktor Moore MD Authorized by: Layton Amaro MD ?? us Layton Sheridan MD ECG ORDERABLES Final Resu lt Performing Organization Address [facility] de Phone Number [facility] * Neuro MR Outside Reference (03/04/2024 9:40 AM JACK WINDER) Impressions [facility] - 03/04/2024 9:40 AM JACK WINDER These images are for Reference purposes only and have not been reviewed by [facility] Radiology. ??There will be no report generated by a [facility] Radiologist. Narrative [facility] - 03/04/2024 9:40 AM JACK WINDER EXAMINATION: ??Images For Reference Purposes Only us Angel Arriaga MD IMG MRI PROCEDURES Final R esult Performing Organization Address [facility] Co de Phone Number [email or web address] * US Outside Reference (03/04/2024 9:38 AM JACK WINDER) Impressions [facility] - 03/04/2024 9:38 AM JACK WINDER These images are for Reference purposes only and have not been reviewed by [facility] Radiology. ??There will be no report generated by a [facility] Radiologist. Narrative [facility] - 03/04/2024 9:38 AM JACK WINDER EXAMINATION: ??Images For Reference Purposes Only Angel Arriaga MD IMG US PROCEDURES Final Re sult Performing Organization Address [facility] de Phone Number [email or web address] * Neuro CT Outside Reference (03/04/2024 9:22 AM JACK WINDER) Impressions [facility] - 03/04/2024 9:22 AM JACK WINDER These images are for Reference purposes only and have not been reviewed by [facility] Radiology. ??There will be no report generated by a [facility] Radiologist. Narrative [facility] - 03/04/2024 9:22 AM JACK WINDER EXAMINATION: ??Images For Reference Purposes Only Angel Arriaga MD IMG CT PROCEDURES Final Re sult Performing Organization Address [facility] de Phone Number [email or web address] * Neuro MR Outside Reference (03/04/2024 9:08 AM JACK WINDER) Impressions [facility] - 03/04/2024 9:08 AM JACK WINDER These images are for Reference purposes only and have not been reviewed by [facility] Radiology. ??There will be no report generated by a [facility] Radiologist. Narrative [facility] - 03/04/2024 9:08 AM JACK WINDER EXAMINATION: ??Images For Reference Purposes Only Angel Arriaga MD IMG MRI PROCEDURES Final R esult Performing Organization Address [facility] de Phone Number [email or web address] * Neuro CT Outside Reference (03/04/2024 9:05 AM JACK WINDER) Impressions [facility] - 03/04/2024 9:05 AM JACK WINDER These images are for Reference purposes only and have not been reviewed by [facility] Radiology. ??There will be no report generated by a [facility] Radiologist. Narrative [facility] - 03/04/2024 9:05 AM JACK WINDER EXAMINATION: ??Images For Reference Purposes Only Angel Arriaga MD IMG CT PROCEDURES Final Re sult Performing Organization Address [facility] de Phone Number [email or web address] * Neuro CT Outside Reference (03/04/2024 8:23 AM JACK WINDER) Impressions [facility] - 03/04/2024 8:23 AM JACK WINDER These images are for Reference purposes only and have not been reviewed by [facility] Radiology. ??There will be no report generated by a [facility] Radiologist. Narrative [facility] - 03/04/2024 8:23 AM JACK WINDER EXAMINATION: ??Images For Reference Purposes Only Angel Arriaga MD IMG CT PROCEDURES Final Re sult Performing Organization Address [facility] de Phone Number [email or web address] * Neuro MR Outside Reference (03/04/2024 8:21 AM JACK WINDER) Impressions [facility] - 03/04/2024 8:21 AM JACK WINDER These images are for Reference purposes only and have not been reviewed by [facility] Radiology. ??There will be no report generated by a [facility] Radiologist. Narrative [facility] - 03/04/2024 8:21 AM JACK WINDER EXAMINATION: ??Images For Reference Purposes Only Angel Arriaga MD IMG MRI PROCEDURES Final R esult Performing Organization Address [facility] de Phone Number [email or web address] * Neuro CT Outside Reference (03/04/2024 8:07 AM JACK WINDER) Impressions [facility] - 03/04/2024 8:07 AM JACK WINDER These images are for Reference purposes only and have not been reviewed by [facility] Radiology. ??There will be no report generated by a [facility] Radiologist. Narrative [facility] - 03/04/2024 8:07 AM JACK WINDER EXAMINATION: ??Images For Reference Purposes Only Angel Arriaga MD IMG CT PROCEDURES Final Re sult Performing Organization Address [facility] de Phone Number [email or web address] * Neuro CT Outside Reference (03/04/2024 7:57 AM JACK WINDER) Impressions [facility] - 03/04/2024 7:57 AM JACK WINDER These images are for Reference purposes only and have not been reviewed by [facility] Radiology. ??There will be no report generated by a [facility] Radiologist. Narrative [facility] - 03/04/2024 7:57 AM JACK WINDER EXAMINATION: ??Images For Reference Purposes Only Angel Arriaga MD IMG CT PROCEDURES Final Re sult Performing Organization Address [facility] de Phone Number [email or web address] * Neuro CT Outside Reference (03/04/2024 7:54 AM JACK WINDER) Impressions [facility] - 03/04/2024 7:54 AM JACK WINDER These images are for Reference purposes only and have not been reviewed by [facility] Radiology. ??There will be no report generated by a [facility] Radiologist. Narrative [facility] - 03/04/2024 7:54 AM JACK WINDER EXAMINATION: ??Images For Reference Purposes Only Angel Arriaga MD IMG CT PROCEDURES Final Re sult Performing Organization Address [facility] de Phone Number [email or web address] * (ABNORMAL) eGFR (02/28/2024 8:13 PM JACK WINDER) eGFR 6(L) >=60 mL/min/1. 73 m2 Comment: [...] last reviewed 2021. Blood 02/28/2024 8:13 PM JACK WINDER 02/28/2024 8:56 PM JACK WINDER us Fabiana Wilson MD LAB BLOOD ORDERABLES Final Result Performing Organization Address City/State/[facility] Co de Phone Number [facility] Department [place] [address] * (ABNORMAL) CBC without differential (02/28/2024 8:13 PM JACK WINDER) Pathologist [facility] WBC 8.5 3.8 - 9.9 K/cumm Hgb 10.8(L) 11.9 - 15.5 g/dL [facility] Hct 33.3(L) 35.6 - 45.5 % [facility] Plt 232 150 - 400 K/cumm [facility] MPV 9.9 9.1 - 12.3 fL [facility] RBC 3.21(L) 3.90 - 5.20 M/cumm [facility] MCV 103.7(H) 81.3 - 96.4 fL [facility] MCH 33.6(H) 27.1 - 33.3 pg [facility] MCHC 32.4 32.3 - 35.7 g/dL [facility] RDW CV 13.6 11.1 - 14.9 % [facility] RDW SD 51.8(H) 35.7 - 48.1 fL [facility] NRBC abs 0.00 0.00 - 0.01 K/cumm [facility] Blood 02/28/2024 8:13 PM JACK WINDER 02/28/2024 8:56 PM JACK WINDER us Fabiana Wilson MD LAB BLOOD ORDERABLES Final Result [facility] Department [place] [address] * (ABNORMAL) Basic metabolic panel (02/28/2024 8:13 PM JACK WINDER) Sodium 143 135 - 145 mmol/L Potassium, pl 4.6 3.3 - 4.9 mmol/L [facility] Chloride 105 97 - 110 mmol/L [facility] CO2 24 22 - 32 mmol/L [facility] Anion gap 14 2 - 15 mmol/L [facility] BUN 39(H) 6 - 25 mg/dL [facility] Creatinine 6.70(H) 0.60 - 1.10 mg/dL [facility] Glucose 148 70 - 199 mg/dL [facility] Comment: Interpretive Data Fasting glucose >/= [...] 2022. Calcium 9.3 8.5 - 10.3 mg/dL [facility] Blood 02/28/2024 8:13 PM JACK WINDER 02/28/2024 8:56 PM JACK WINDER Fabiana Wilson MD LAB BLOOD ORDERABLES Final Result [facility] Department [place] [address] * (ABNORMAL) eGFR (02/27/2024 6:38 PM JACK WINDER) eGFR 7(L) >=60 mL/min/1. 73 m2 Comment: [...] last reviewed 2021. Blood 02/27/2024 6:38 PM JACK WINDER 02/27/2024 7:31 PM JACK WINDER Fabiana Wilson MD LAB BLOOD ORDERABLES Final Result Performing Organization Address [facility]/ZIP Co de Phone Number [facility] [place] [address] * (ABNORMAL) CBC without differential (02/27/2024 6:38 PM JACK WINDER) [facility] WBC 8.5 3.8 - 9.9 K/cumm Hgb 11.5(L) 11.9 - 15.5 g/dL [facility] Hct 34.4(L) 35.6 - 45.5 % [facility] Plt 228 150 - 400 K/cumm [facility] MPV 9.7 9.1 - 12.3 fL [facility] RBC 3.35(L) 3.90 - 5.20 M/cumm [facility] MCV 102.7(H) 81.3 - 96.4 fL [facility] MCH 34.3(H) 27.1 - 33.3 pg [facility] MCHC 33.4 32.3 - 35.7 g/dL [facility] RDW CV 13.6 11.1 - 14.9 % [facility] RDW SD 52.0(H) 35.7 - 48.1 fL [facility] NRBC abs 0.00 0.00 - 0.01 K/cumm [facility] Blood 02/27/2024 6:38 PM JACK WINDER 02/27/2024 7:31 PM JACK WINDER Fabiana Wilson MD LAB BLOOD ORDERABLES Final Result [facility] Department [place] [address] * (ABNORMAL) Basic metabolic panel (02/27/2024 6:38 PM JACK WINDER) [facility] Sodium 142 135 - 145 mmol/L Potassium, pl 4.5 3.3 - 4.9 mmol/L [facility] Chloride 104 97 - 110 mmol/L [facility] CO2 24 22 - 32 mmol/L [facility] Anion gap 14 2 - 15 mmol/L [facility] [facility] 26(H) 6 - 25 mg/dL [facility] Creatinine 5.80(H) 0.60 - 1.10 mg/dL [facility] Glucose 124 70 - 199 mg/dL [facility] Comment: Interpretive Data Fasting glucose >/= [...] 2022. Calcium 9.2 8.5 - 10.3 mg/dL [facility] Blood 02/27/2024 6:38 PM JACK WINDER 02/27/2024 7:31 PM JACK WINDER us Fabiana Wilson MD LAB BLOOD ORDERABLES Final Result [facility] [place] [address] * (ABNORMAL) eGFR (02/26/2024 10:00 PM JACK WINDER) eGFR 12(L) >=60 mL/min/1. 73 m2 Comment: [...] reviewed 2021. Blood 02/26/2024 10:0 0 PM JACK WINDER 02/26/2024 10:42 PM JACK WINDER us Fabiana Wilson MD LAB BLOOD ORDERABLES Final Result [facility] [place] [address] * (ABNORMAL) CBC without differential (02/26/2024 10:00 PM JACK WINDER) WBC 12.9(H) 3.8 - 9.9 K/cumm Hgb 11.6(L) 11.9 - 15.5 g/dL [facility] Hct 34.3(L) 35.6 - 45.5 % [facility] Plt 224 150 - 400 K/cumm [facility] MPV 9.7 9.1 - 12.3 fL [facility] RBC 3.36(L) 3.90 - 5.20 M/cumm [facility] MCV 102.1(H) 81.3 - 96.4 fL [facility] MCH 34.5(H) 27.1 - 33.3 pg [facility] MCHC 33.8 32.3 - 35.7 g/dL [facility] RDW CV 13.2 11.1 - 14.9 % [facility] RDW SD 50.1(H) 35.7 - 48.1 fL [facility] NRBC abs 0.00 0.00 - 0.01 K/cumm [facility] Blood 02/26/2024 10:0 0 PM JACK WINDER 02/26/2024 10:42 PM JACK WINDER Fabiana Wilson MD LAB BLOOD ORDERABLES Final Result [facility] [place] [address] * (ABNORMAL) Basic metabolic panel (02/26/2024 10:00 PM JACK WINDER) Pathologist [facility] Sodium 140 135 - 145 mmol/L Potassium, pl 3.9 3.3 - 4.9 mmol/L [facility] Chloride 102 97 - 110 mmol/L [facility] CO2 26 22 - 32 mmol/L [facility] Anion gap 12 2 - 15 mmol/L [facility] BUN 14 6 - 25 mg/dL [facility] Creatinine 3.79(H) 0.60 - 1.10 mg/dL [facility] Glucose 114 70 - 199 mg/dL [facility] Comment: Interpretive Data Fasting glucose >/= [...] 2022. Calcium 9.0 8.5 - 10.3 mg/dL [facility] Blood 02/26/2024 10:0 0 PM JACK WINDER 02/26/2024 10:42 PM JACK WINDER Fabiana Wilson MD LAB BLOOD ORDERABLES Final Result Performing Organization Address [facility]/ZIP Co de Phone Number [facility] Department of [employer] [place] [address] * Hepatitis B Surface Antigen Blood (02/26/2024 2:36 PM JACK WINDER) HepBsAg Nonreactive Nonreactive Blood 02/26/2024 2:36 PM JACK WINDER 02/26/2024 2:45 PM JACK WINDER Kevon marquis LAB MICROBIOLOGY - GENERAL ORDERABLES Final Result [facility] [place] [address] * ASBESTOS CLOTH INSPECTOR Evaluate and Treat (FEES) (02/26/2024 9:59 AM JACK WINDER) Narrative [facility] - 02/26/2024 9:59 AM JACK WINDER Chika Fish, ASBESTOS CLOTH INSPECTOR ? 02/26/2024 11:21 AM Speech-Language Pathology: Flexible [...] Solids Recommendation: Mechanical soft Diet Liquids Recommendations: Trail Side thick (No ice in drinks, no ice [...] with puree or solids. With pt's permission, ASBESTOS CLOTH INSPECTOR called pt's son to update son on [...] deficits Secretions: Minimal Consistencies Administered: Thin liquids, Trail Side thick liquids, Purees, Solids Thin Liquids: Laryngeal Penetration: Present Aspiration Present: ??(suspect posterior aspiration) Timing: Before, After Amount: Moderate Response to aspiration: None Cough: Non-productive Unsuccessful Modifications: Chin tuck, Repeat swallow, Cough Penetration Aspiration Scale-Thin: 8-Material enters the airway, passes below the vocal folds and no effort is made to eject Miles Scale-Vallecular Residue-Thin Liquids: Mild Yen Scale-Pyriform Sinus Residue-Thin Liquids: Mild Trail Side Thickened Liquids: Laryngeal Penetration: Present Aspiration Present: No Successful Modifications: Repeat swallow Unsuccessful Modifications: Cough Penetration Aspiration Scale-Trail Side: 3-Material enters the airway, remains above the vocal folds and is not ejected from the airway Yen Scale-Vallecular Residue-Trail Side Thickened Liquids: Trace Yen Scale-Pyriform Sinus Residue-Trail Side Thickened Liquids: Trace Purees: Laryngeal Penetration: None Aspiration Present: No Penetration Aspiration Scale-Puree: 1-Material does not enter airway Solids: Laryngeal Penetration: None Aspiration Present: No Penetration Aspiration Scale-Solids: 1-Material does not enter airway Yen Scale-Vallecular Residue-Solids: None Miles Scale-Pyriform Sinus Residue-Solids: None Dysphagia Outcome and Severity Scale: Dysphagia Outcomes and Severity Scale: 5 Mild dysphagia Levels 1 & 2 on the RALPH indicate need for nonoral nutrition. Treatment Treatment was not provided this date. Please reference care plan for treatment goals and details, if indicated. 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 us Joe Bolton MD PhD ASBESTOS CLOTH INSPECTOR ORDERABLES Fi nal Result [facility] * (ABNORMAL) eGFR (02/25/2024 10:53 PM JACK WINDER) eGFR 7(L) >=60 mL/min/1. 73 m2 Comment: [...] reviewed 2021. Blood 02/25/2024 10:5 3 PM JACK WINDER 02/25/2024 11:27 PM JACK WINDER us Joe Bolton MD PhD LAB BLOOD ORDERABL ES Final Result [facility] [place] [address] * (ABNORMAL) Basic metabolic panel (02/25/2024 10:53 PM JACK WINDER) Sodium 141 135 - 145 mmol/L Potassium, pl 4.7 3.3 - 4.9 mmol/L [facility] Chloride 106 97 - 110 mmol/L [facility] CO2 25 22 - 32 mmol/L [facility] Anion gap 10 2 - 15 mmol/L [facility] BUN 36(H) 6 - 25 mg/dL [facility] Creatinine 6.26(H) 0.60 - 1.10 mg/dL [facility] Glucose 108 70 - 199 mg/dL [facility] Comment: Interpretive Data Fasting glucose >/= [...] 2022. Calcium 9.7 8.5 - 10.3 mg/dL [facility] Blood 02/25/2024 10:5 3 PM JACK WINDER 02/25/2024 11:27 PM JACK WINDER us Joe Bolton MD PhD LAB BLOOD ORDERABL ES Final Result Performing Organization Address [facility]/ZIP Co de Phone Number [facility] Department of [employer] [place] [address] * (ABNORMAL) CBC without differential (02/25/2024 9:45 PM JACK WINDER) WBC 11.5(H) 3.8 - 9.9 K/cumm Hgb 10.8(L) 11.9 - 15.5 g/dL [facility] Hct 32.7(L) 35.6 - 45.5 % [facility] Plt 244 150 - 400 K/cumm [facility] MPV 9.5 9.1 - 12.3 fL [facility] RBC 3.15(L) 3.90 - 5.20 M/cumm [facility] MCV 103.8(H) 81.3 - 96.4 fL [facility] MCH 34.3(H) 27.1 - 33.3 pg [facility] MCHC 33.0 32.3 - 35.7 g/dL [facility] RDW CV 13.2 11.1 - 14.9 % [facility] RDW SD 50.4(H) 35.7 - 48.1 fL [facility] NRBC abs 0.00 0.00 - 0.01 K/cumm [facility] Blood 02/25/2024 9:45 PM JACK WINDER 02/25/2024 10:39 PM JACK WINDER us Fabiana Wilson MD LAB BLOOD ORDERABLES Final Result Performing Organization Address City/[facility]/ZIP Co de Phone Number [facility] [place] [employer] [place] [address] * (ABNORMAL) Blood gas, venous (02/25/2024 11:18 AM JACK WINDER) pH, Venous 7.36 7.32 - 7.43 PCO2, Venous 36(L) 40 - 50 mmHg [facility] PO2, Venous 47 mmHg [facility] Comment: Interpretive Data No Reference Range Established Current Interpretive Data was last revised on 2017. HCO3 Venous, Calculated 21 20 - 30 mmol/L [facility] BE, venous -4 mmol/L [facility] Comment: Interpretive Data No Reference Range Established Current Interpretive Data was last revised on 2017. Blood 02/25/2024 11:1 8 AM JACK WINDER 02/25/2024 11:25 AM JACK WINDER us Joe Bolton MD PhD LAB BLOOD ORDERABL ES Final Result Performing Organization Address City/[facility]/ZIP Co de Phone Number [facility] [place] [address] * ECG 12 lead (02/25/2024 11:07 AM JACK WINDER) Ventricular Rate EKG/Min 72 BPM [facility] Atrial Rate 72 BPM [facility] [place]-Interval (MSEC) 144 ms [facility] QRS-Interval (MSEC) 88 ms [facility] QT-Interval (MSEC) 428 ms [facility] QTc 468 ms [facility] P [place] 48 degrees [facility] R [place] -68 degrees [facility] T [place] 52 degrees [facility] Diagnosis Normal sinus rhythm Left axis deviation 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 73 m2 Comment: [...] last reviewed 2021. Blood 02/24/2024 8:10 PM JACK WINDER 02/24/2024 8:26 PM JACK WINDER Fabiana Wilson MD LAB BLOOD ORDERABLES Final Result [facility] [place], [place] [id number] * Calcium, ionized (02/24/2024 8:10 PM JACK WINDER) Pathologist [facility] Calcium, Ionized 4.55 4.50 - 5.10 mg/dL Blood 02/24/2024 8:10 PM JACK WINDER 02/24/2024 8:22 PM JACK WINDER us Laly Clements NP LAB BLOOD ORDERABLES Final Result Performing Organization Address [facility]/ZIP Co de Phone Number [facility] [place] [employer] [place] [address] * (ABNORMAL) CBC without differential (02/24/2024 8:10 PM JACK WINDER) WBC 10.0(H) 3.8 - 9.9 K/cumm Hgb 10.4(L) 11.9 - 15.5 g/dL [facility] Hct 31.6(L) 35.6 - 45.5 % [facility] Plt 228 150 - 400 K/cumm [facility] MPV 9.8 9.1 - 12.3 fL [facility] RBC 3.06(L) 3.90 - 5.20 M/cumm [facility] MCV 103.3(H) 81.3 - 96.4 fL [facility] MCH 34.0(H) 27.1 - 33.3 pg [facility] MCHC 32.9 32.3 - 35.7 g/dL [facility] RDW CV 13.5 11.1 - 14.9 % [facility] RDW SD 51.5(H) 35.7 - 48.1 fL [facility] NRBC abs 0.00 0.00 - 0.01 K/cumm [facility] Blood 02/24/2024 8:10 PM JACK WINDER 02/24/2024 8:26 PM JACK WINDER Fabiana Wilson MD LAB BLOOD ORDERABLES Final Result [facility] Department of Laboratories [place], [place] [id number] * (ABNORMAL) Basic metabolic panel (02/24/2024 8:10 PM JACK WINDER) Sodium 141 135 - 145 mmol/L Potassium, pl 4.8 3.3 - 4.9 mmol/L [facility] Chloride 100 97 - 110 mmol/L [facility] CO2 27 22 - 32 mmol/L [facility] Anion gap 14 2 - 15 mmol/L [facility] BUN 32(H) 6 - 25 mg/dL [facility] Creatinine 5.37(H) 0.60 - 1.10 mg/dL [facility] Glucose 99 70 - 199 mg/dL [facility] Comment: Interpretive Data Fasting glucose >/= [...] 2022. Calcium 9.3 8.5 - 10.3 mg/dL [facility] Blood 02/24/2024 8:10 PM JACK WINDER 02/24/2024 8:26 PM JACK WINDER us Fabiana Wilson MD LAB BLOOD ORDERABLES Final Result [facility] [place] [address] * (ABNORMAL) Drugs of Abuse Screen, Urine with Reflex Confirmation (02/24/2024 1:51 AM JACK WINDER) [facility] Amphetamine, ur Not Detected CutOff 500ng/mL Comment: Interpretive Data - Amphetamines: ??Samples containing greater than 500 ng/mL d-methamphetamine ??or other cross-reacting amphetamine compounds are reported as positive. ??Amphetamine immunoassays are subject to significant false positive rates due to cross-reactivity of non-amphetamine drugs. Confirmatory testing required for definitive results. Current Interpretive Data was last reviewed 2022. Barbiturates, ur Not Detected CutOff 200ng/mL [facility] Comment: Interpretive Data - Barbiturates: ??Samples containing greater than 200 ng/mL secobarbital or other cross-reacting barbiturate compounds are reported as positive. ??False positive and false negative results are possible. Confirmatory testing required for definitive results. Current Interpretive Data was last reviewed 2022. Benzodiazepines, ur Not Detected CutOff 100ng/mL [facility] Comment: Interpretive Data - Benzodiazepines: ??Samples containing greater than 100 ng/mL nordiazepam or other cross-reacting compounds are reported as positive. False positive and false negative results are possible. Confirmatory testing required for definitive results. Current Interpretive Data was last reviewed 2022. Cannabinoids, ur Screen Positive, presumptive (A) CutOff 50 ng/mL [facility] Comment: Interpretive Data - Cannabinoids: ??Samples containing greater than 50 ng/mL delta-9 THC -COOH or other cross-reacting compounds are reported as positive. ??False positive and false negative results are possible. ??Confirmatory testing required for definitive results. Current Interpretive Data was last reviewed 2022. Cocaine, ur Not Detected CutOff 150ng/mL [facility] Comment: Interpretive Data - Cocaine: ??Samples containing greater than 150 ng/mL benzoylecgonine or other cross-reacting compounds are reported as positive. False positive and false negative results are possible. Confirmatory testing required for definitive results. Current Interpretive Data was last reviewed 2022. Fentanyl, Ur Not Detected CutOff 5 ng/mL [facility] Comment: Interpretive Data - Fentanyl: ?? Samples containing greater than 5 ng/mL norfentanyl, fentanyl, or other cross-reacting fentanyl compounds are reported as positive. False positive and false negative results are possible. Confirmatory testing required for definitive results. Current Interpretive Data was last reviewed 2023. Methadone, ur Not Detected CutOff 300ng/mL [facility] Comment: Interpretive Data - Methadone: ??Samples containing greater than 300 ng/mL d,l-methadone or other cross-reacting compounds are reported as positive. ??False positive and false negative results are possible. Confirmatory testing required for definitive results. Current Interpretive Data was last reviewed 2022. Opiates, ur Not Detected CutOff 300ng/mL [facility] Comment: Interpretive Data - Opiates: ??Samples containing greater than 300 ng/mL morphine or other cross-reacting compounds are reported as positive. ??False positive and false negative results are possible. Confirmatory testing required for definitive results. Current Interpretive Data was last reviewed 2022. Oxycodone, ur Not Detected CutOff 100ng/[facility] Comment: Interpretive Data - Oxycodone: ??Samples containing greater than 100 ng/mL oxycodone or other cross-reacting compounds are reported as ??positive. ??False positive and false negative results are possible. Confirmatory testing required for definitive results. Current Interpretive Data was last reviewed 2022. Phencyclidine, ur Not Detected CutOff 25 ng/mL [facility] Comment: Interpretive Data - Phencyclidine: ??Samples containing greater than 25 ng/mL phencyclidine or other cross-reacting compounds are reported as positive. ??False positive and false negative results are possible. Confirmatory testing required for definitive results. Current Interpretive Data was last reviewed 2022. Urine Creatinine 51 mg/dL [facility] Comment: Interpretive Data Urine Creatinine: < 10 mg/dL is extremely dilute = or > 10 but < 20 mg/dL is dilute = or > 20 mg/dL is normal Current Interpretive Data was last revised on 2017. Urine 02/24/2024 1:51 AM JACK WINDER 02/24/2024 6:04 AM JACK WINDER us Fabiana Wilson MD LAB URINE ORDERABLES Final Result [facility] [place] [address] * (ABNORMAL) Urinalysis reflex to microscopic and culture Urine (02/24/2024 1:51 AM JACK WINDER) Color, ur Straw Yellow Clarity, ur Clear Clear [facility] Specific gravity, ur 1.024 1.003 - 1.030 [facility] pH, urine 8.0 [facility] Comment: Interpretive Data ? Urine pH is affected by diet, medications, systemic acid-base disturbances, and renal tubular function. ??pH may affect urinary stone formation. ??For example, urine pH below 6.0 may help reduce the tendency for calcium phosphate stones and pH greater than 6.0 may reduce the tendency for uric acid stone formation. Source: [facility] Current Interpretive Data was last revised on 2017 Protein, ur ql 1+(A) Negative [facility] Glucose, ur ql Negative Negative [facility] Ketones, ur Negative Negative [facility] Bilirubin, ur Negative Negative [facility] Blood, ur Negative Negative [facility] Urobilinogen, ur <2.0 <2.0 mg/dL [facility] Nitrite, ur Negative Negative [facility] Leukocyte esterase, ur Negative Negative [facility] UA reflex comment Reflex to microscopic UA will be performed. [facility] Urine 02/24/2024 1:51 AM JACK WINDER 02/24/2024 5:36 AM JACK WINDER Fabiana Wilson MD LAB MICROBIOLOGY - GENERAL ORDERABLES Final Result Performing Organization Address [facility] Co de Phone Number [facility] [employer] [place] [address] * (ABNORMAL) Urinalysis, microscopic only (02/24/2024 1:51 AM JACK WINDER) WBC, ur 0-5 0 - 5 /HPF RBC, ur 3-5(A) 0 - 2 /HPF [facility] Epithelial cells, squamous, ur 1-5 0 - 5 /HPF [facility] Bacteria, ur Trace(A) [facility] Culture Reflex Comment Reflex conditions for urine culture (WBC >10) not met. [facility] Urine 02/24/2024 1:51 AM JACK WINDER 02/24/2024 5:36 AM JACK WINDER Fabiana Wilson MD LAB URINE ORDERABLES Final Result Performing Organization Address [facility] Co de Phone Number [facility] [employer] [place] [address] * EEG (02/24/2024 1:16 AM JACK WINDER) Anatomical Region Laterality Modality EEG Narrative 02/24/2024 10:46 AM JACK WINDER Routine EEG Report Patient Name: Trisha Waite [facility] Record Number (MRN): [id number] [facility] Record: No Lexi MRN Date of (): [...] 32 channel EEG recording acquired on a [employer] EEG-1200 acquisition system. Scalp electrodes were placed [...] intent. Signing Attending: Devonte Camejo MD PhD us Fabiana Wilson MD NEUROLOGY ORDERABLES Final Result * Check Sample (02/24/2024 12:05 AM JACK WINDER) ABO Rh O Positive [facility] OTHER 02/24/2024 12:0 5 AM JACK WINDER 02/24/2024 1:30 AM JACK WINDER Fabiana Wilson MD LAB BLOOD ORDERABLES Final Result Performing Organization Address [facility] Co de Phone Number [facility] [place] [address] [facility] * Troponin I high-sensitivity 4-hour (02/23/2024 10:47 PM JACK WINDER) Trop I hs 5 <=17 ng/L Comment: Interpretive Data For further hscTnI resources including the diagnostic algorithm and an aid in interpretation, copy and paste this link: https://bjhlab.testcatalog.org/show/hsTrop-1 Current Interpretive Data last revised 2019. Trop I hs delta -1 ng/L [facility] Trop I hs interp Insignificant [facility] Blood 02/23/2024 10:4 7 PM JACK WINDER 02/23/2024 11:47 PM JACK WINDER Fabiana Wilson MD LAB BLOOD ORDERABLES Final Result Performing Organization Address [facility] Co de Phone Number [facility] Department [place] [address] * (ABNORMAL) Calcium, ionized (02/23/2024 10:47 PM JACK WINDER) Calcium, Ionized 3.82(L) 4.50 - 5.10 mg/dL Blood 02/23/2024 10:4 7 PM JACK WINDER 02/23/2024 11:34 PM JACK WINDER Fabiana Wilson MD LAB BLOOD ORDERABLES Final Result Performing Organization Address [facility] Co de Phone Number [facility] [place] [address] * Troponin I high-sensitivity 2-hour (02/23/2024 9:23 PM JACK WINDER) Trop I hs 6 <=17 ng/L Comment: Interpretive Data For further [facility] resources including the diagnostic algorithm and an aid in interpretation, copy and paste this link: https://bjhlab.testcatalog.org/show/hsTrop-1 Current Interpretive Data last revised 2019. Trop I hs delta 0 ng/L [facility] Trop I hs interp Insignificant [facility] Blood 02/23/2024 9:23 PM JACK WINDER 02/23/2024 10:50 PM JACK WINDER us Fabiana Wilson MD LAB BLOOD ORDERABLES Final Result [facility] Department [place] [address] * (ABNORMAL) eGFR (02/23/2024 9:23 PM JACK WINDER) Pathologist [facility] eGFR 11(L) >=60 mL/min/1. 73 m2 Comment: [...] of Race in Diagnosing Kidney Disease, JASN 2021). The CKD-EPI equation should not be used for patients with unstable renal function and has not been validated in children and those over 70. Current interpretive data was last reviewed 2021. Blood 02/23/2024 9:23 PM JACK WINDER 02/23/2024 10:49 PM JACK WINDER Fabiana Wilson MD LAB BLOOD ORDERABLES Final Result Performing Organization Address [facility] de Phone Number [facility] [place] [place] [address] * (ABNORMAL) aPTT (02/23/2024 9:23 PM JACK WINDER) aPTT 25(L) 28 - 38 sec Comment: Interpretive Data Heparin therapeutic range: 66.0 - 100.0 seconds. Range based on correlation with therapeutic heparin activity range of 0.3 - 0.7 Units/mL. Current interpretive data was last revised on 2022. Blood 02/23/2024 9:23 PM JACK WINDER 02/23/2024 10:40 PM JACK WINDER Fabiana Wilson MD LAB BLOOD ORDERABLES Final Result Performing Organization Address [facility] [place] [address] * Protime-INR (02/23/2024 9:23 PM JACK WINDER) PT 10.8 9.7 - 13.0 sec INR 1.00 0.90 - 1.20 [facility] Comment: Interpretive data Oral anticoagulant therapeutic ranges: Venous thromboembolism prophylaxis or treatment: 2.0-3.0 CARDIOLOGY Standard range: 2.0-3.0 High-intensity range: 2.5-3.5 Refer to indication-specific guidelines for appropriate target ranges for prosthetic heart valve replacement. Current interpretive data was last revised on 2019. Blood 02/23/2024 9:23 PM JACK WINDER 02/23/2024 10:40 PM JACK WINDER Fabiana Wilson MD LAB BLOOD ORDERABLES Final Result ALEXANDER [facility] [employer] [place] [address] * (ABNORMAL) CBC without differential (02/23/2024 9:23 PM JACK WINDER) WBC 8.5 3.8 - 9.9 K/cumm Hgb 10.1(L) 11.9 - 15.5 g/dL [facility] Hct 31.5(L) 35.6 - 45.5 % [facility] Plt 202 150 - 400 K/cumm [facility] MPV 9.9 9.1 - 12.3 fL [facility] RBC 2.99(L) 3.90 - 5.20 M/cumm [facility] MCV 105.4(H) 81.3 - 96.4 fL [facility] MCH 33.8(H) 27.1 - 33.3 pg [facility] MCHC 32.1(L) 32.3 - 35.7 g/dL [facility] RDW CV 13.3 11.1 - 14.9 % [facility] RDW SD 51.3(H) 35.7 - 48.1 fL [facility] NRBC abs 0.00 0.00 - 0.01 K/cumm [facility] Blood 02/23/2024 9:23 PM JACK WINDER 02/23/2024 10:49 PM JACK WINDER us Fabiana Wilson MD LAB BLOOD ORDERABLES Final Result ALEXANDER [facility] [employer] [place] [address] * Type and screen (02/23/2024 9:23 PM JACK WINDER) ABO Rh O Positive Jose Carlos, indirect Negative [facility] Blood 02/23/2024 9:23 PM JACK WINDER 02/23/2024 11:06 PM JACK WINDER Narrative [facility] - 02/23/2024 11:57 PM JACK WINDER Has the patient had Daratumumab or Isatuximab in the past 6 months?->Unknown Fabiana Wilson MD LAB BLOOD BANK TEST ORDERAB LES Final Result Performing Organization Address [facility] Co de Phone Number [facility] [employer] [place] [address] * Phosphorus (02/23/2024 9:23 PM JACK WINDER) Pathologist [facility] Phosphorus, pl 4.4 2.3 - 4.5 mg/dL Blood 02/23/2024 9:23 PM JACK WINDER 02/23/2024 10:49 PM JACK WINDER Fabiana Wilson MD LAB BLOOD ORDERABLES Final Result Performing Organization Address [facility] Co de Phone Number [facility] [place] [employer] [place] [address] * Magnesium (02/23/2024 9:23 PM JACK WINDER) [facility] Magnesium 2.1 1.4 - 2.5 mg/dL Blood 02/23/2024 9:23 PM JACK WINDER 02/23/2024 10:49 PM JACK WINDER Result [facility] Fabiana Wilson MD LAB BLOOD ORDERABLES Final Result Performing Organization Address City/[facility] Co de Phone Number [facility] [employer] [place] [address] * Hemoglobin A1c (02/23/2024 9:23 PM JACK WINDER) Pathologist [facility] Hgb A1C 5.2 4.0 - 5.6 % Estimated Average Glucose 103 mg/dL [facility] Comment: The ADA recommends reporting an estimated Average Glucose (eAG) with all Hemoglobin A1c results using the equation derived from a study of 507 normal and diabetic adults. ??Minority populations were underrepresented and children were not included. ?? (Diabetes Care 2020; 43(S1): S66-S76). ??The eAG is not equivalent to a fasting glucose. Blood 02/23/2024 9:23 PM JACK WINDER 02/23/2024 10:53 PM JACK WINDER us Fabiana Wilson MD LAB BLOOD ORDERABLES Final Result ALEXANDER [facility] [place] [address] * Lipid panel (02/23/2024 9:23 PM JACK WINDER) Cholesterol 103 30 - 199 mg/dL Comment: [...] revised on 2017. HDL 43 >=40 mg/dL [facility] Comment: Interpretive Data Ages < or = [...] on 2017. LDL, calculated 45 <=129 mg/dL [facility] Comment: Interpretive Data Ages < or = 19 years ??Acceptable: ? <110 mg/dL ??Borderline high: ??110-129 mg/dL ??High: ?>or= 130 mg/dL Ages > or = 20 years ??Optimal: ? <100 mg/dL ??Near optimal: ?100-129 mg/dL ??Borderline high: ?? 130-159 mg/dL ??High: ?>160 mg/dL Calculated using the Ceron LDL-C estimating equation. This equation was implemented on 2023. Prior to this date LDL-C was estimated using the Friedewald equation. Literature References: 1. Expert Panel on Integrated Guidelines for Cardiovascular Health and Risk Reduction in Children and Adolescents. Pediatrics 2011;128:S213 2. NCEP Expert Panel. Circulation 2004;110:227 3. Osmany M et al. SARA Cardiol. 2020 July 17;5(5):540-548. doi: 10.1001/jamacardio.2020.0013 Current Interpretive Data was last revised on 2023. Non-HDL Cholesterol 60 mg/dL [facility] Comment: Interpretive Data Ages < or = [...] last revised on 2017. Chol/HDL ratio 2 [facility] Blood 02/23/2024 9:23 PM JACK WINDER 02/23/2024 10:49 PM JACK WINDER Fabiana Wilson MD LAB BLOOD ORDERABLES Final Result [facility] [place] [address] * (ABNORMAL) Comprehensive metabolic panel (02/23/2024 9:23 PM JACK WINDER) Sodium 139 135 - 145 mmol/L Potassium, pl 4.1 3.3 - 4.9 mmol/L [facility] Chloride 102 97 - 110 mmol/L [facility] CO2 28 22 - 32 mmol/L [facility] Anion gap 9 2 - 15 mmol/L [facility] BUN 18 6 - 25 mg/dL [facility] Creatinine 4.00(H) 0.60 - 1.10 mg/dL [facility] Glucose 86 70 - 199 mg/dL [facility] Comment: Interpretive Data Fasting glucose >/= [...] 2022. Calcium 7.9(L) 8.5 - 10.3 mg/dL [facility] Bilirubin, total 0.3 0.1 - 1.2 mg/dL [facility] Protein, pl 5.7(L) 6.5 - 8.5 g/dL [facility] Albumin 3.1(L) 3.5 - 5.0 g/dL [facility] Alk phos 62 40 - 130 Units/L [facility] ALT 5(L) 7 - 45 Units/L [facility] Comment:Repeated and Verifie d AST 15 10 - 45 Units/L [facility] Blood 02/23/2024 9:23 PM JACK WINDER 02/23/2024 10:49 PM JACK WINDER us Fabiana Wilson MD LAB BLOOD ORDERABLES Final Result [facility] [place] [address] * Respiratory pathogen panel Nasopharyngeal (02/23/2024 8:58 PM JACK WINDER) Pathologist [facility] Influenza A RNA Not Detected Not Detected Influenza B RNA Not Detected Not Detected [facility] RSV RNA Not Detected Not Detected [facility] COVID-19 RNA Not Detected Not Detected [facility] Coronavirus 229E RNA Not Detected Not Detected [facility] Coronavirus HKU1 RNA Not Detected Not Detected [facility] Coronavirus NL63 RNA Not Detected Not Detected [facility] Coronavirus OC43 RNA Not Detected Not Detected [facility] Adenovirus DNA Not Detected Not Detected [facility] Metapneumovirus RNA Not Detected Not Detected [facility] Rhinovirus/Enterov irus RNA Not Detected Not Detected [facility] Parainfluenza 1 RNA Not Detected Not Detected [facility] Parainfluenza 2 RNA Not Detected Not Detected [facility] Parainfluenza 3 RNA Not Detected Not Detected [facility] Parainfluenza 4 RNA Not Detected Not Detected [facility] B. pertussis DNA Not Detected Not Detected [facility] B. parapertussis DNA Not Detected Not Detected [facility] C. pneumoniae DNA Not Detected Not Detected [facility] M. pneumoniae DNA Not Detected Not Detected [facility] Nasopharyngeal 02/23/2024 8: 58 PM JACK WINDER 02/23/2024 10:57 PM JACK WINDER Narrative [facility] - 02/24/2024 12:09 AM JACK WINDER Is the Patient experiencing symptoms consistent with COVID?->No Surveillance testing for transplant patient?->No ??Interpretive Data [facility] [employer] Respiratory Panel (RP2.1) assay is a [...] assay has FDA clearance for testing of MANAGER PHYSICAL swabs. ??The performance of additional specimen types has been assessed by the performing laboratory. ??The performance characteristics of this assay have been determined by [facility] Molecular Infectious Disease Laboratory. Current interpretive data was last revised on 21. Fabiana Wilson MD LAB MICROBIOLOGY - GENERAL ORDERABLES Final Result [facility]ER [facility] [place] [address] * Blood culture Blood (02/23/2024 8:58 PM JACK WINDER) Report Final Report: No growth Blood 02/23/2024 8:58 PM JACK WINDER 02/24/2024 12:25 AM JACK WINDER Narrative A[facility]ER [facility] - 02/28/2024 7:00 AM JACK WINDER Second site Collection->Peripheral 1. ?Blood cultures are [...] performance characteristics have been verified by the [facility] Microbiology Laboratory. For questions about this culture, contact the Microbiology Laboratory at [phone]. Interpretive data was last revised on 24. us Fabiana Wilson MD LAB MICROBIOLOGY - GENERAL ORDERABLES Final Result ALEXANDER [facility] [place] [address] * Blood culture Blood (02/23/2024 8:58 PM JACK WINDER) Report Final Report: No growth Blood 02/23/2024 8:58 PM JACK WINDER 02/24/2024 12:25 AM JACK WINDER Narrative [facility] - 02/28/2024 7:00 AM JACK WINDER Collection->Peripheral 1. ?Blood cultures are incubated for [...] performance characteristics have been verified by the [facility] Microbiology Laboratory. For questions about this culture, contact the Microbiology Laboratory at [phone]. Interpretive data was last revised on 24. Fabiana Wilson MD LAB MICROBIOLOGY - GENERAL ORDERABLES Final Result Performing Organization Address [facility] Co de Phone Number [facility] Department [place] [address] * ECG 12 lead (02/23/2024 8:29 PM JACK WINDER) Ventricular Rate EKG/Min 65 BPM [facility] Atrial Rate 65 BPM [facility] [place]-Interval (MSEC) 144 ms [facility] QRS-Interval (MSEC) 82 ms [facility] QT-Interval (MSEC) 480 ms [facility] QTc 499 ms [facility] P [place] 53 degrees [facility] R [place] -63 degrees [facility] T [place] 43 degrees [facility] Diagnosis Normal sinus rhythm Left axis deviation Inferior infarct , age undetermined Abnormal ECG No previous ECGs available Confirmed by ALFREDO HANNON M.D ([id number]) on 02/25/2024 5:17:23 PM [facility] 02/23/2024 8:29 PM JACK WINDER 02/25/2024 5:17 PM JACK WINDER Fabiana Wilson MD ECG ORDERABLES Final Resul t Performing Organization Address [facility] de Phone Number [facility] * POCT glucose (02/23/2024 8:20 PM JACK WINDER) Glucose, POC 93 70 - 199 mg/dL Blood 02/23/2024 8:20 PM JACK WINDER 02/23/2024 8:20 PM JACK WINDER Fabiana Wilson MD LAB POCT ORDERABLES - DEVIC E Final Result Performing Organization Address [facility] Co de Phone Number [facility] Department [place] [address] * MRI Brain WO Contrast (02/23/2024 8:07 PM JACK WINDER) Anatomical Region Laterality Modality Head and Neck N/A Magnetic Resonan ce 02/23/2024 8:19 PM JACK WINDER Impressions 02/24/2024 8:32 AM JACK WINDER 1. ??No acute infarct or convincing evidence [...] Jesu Barker MD Narrative 02/24/2024 8:32 AM JACK WINDER EXAMINATION: Magnetic resonance imaging (MRI) of the [...] XR Chest 1 View (02/23/2024 7:36 PM JACK WINDER) Anatomical Region Laterality Modality Body, Chest N/A Digital Radiogra phy 02/23/2024 8:30 PM JACK WINDER Impressions 02/23/2024 8:30 PM JACK WINDER Comparison to 02/27/2023. Loop recorder noted. ??Left-sided central venous catheter with tip over the superior cavoatrial junction. ??Heart size is normal. Prominent mediastinal fat is again seen. ??Curvilinear opacities in the right midlung in the right lung base, likely scarring/atelectasis. ??No effusion or pneumothorax. Electronically signed by: Chacho Martini M.D. Narrative 02/23/2024 8:30 PM JACK WINDER EXAMINATION: 1 view chest radiograph Procedure Note [...] * (ABNORMAL) ECG 12-LEAD (02/23/2024 7:00 PM JACK WINDER) Narrative [facility] - 02/23/2024 7:00 PM JACK WINDER Fabiana Wilson MD ? 02/23/2024 ??7:01 PM [...] in the ED Fabiana Wilson MD 02/23/24 [id number] Fabiana Wilson MD ECG ORDERABLES Final Resul t [facility] * [place] CRITICAL CARE ILL/INJURED PATIENT INIT 30-74 MIN (02/23/2024 6:58 PM JACK WINDER) Narrative Fabiana Wilson MD - 02/23/2024 6:58 PM JACK WINDER Fabiana Wilson MD ? 02/26/2024 ??8:32 PM [...] (baseline, 2hr, 4hr, 6hr) (02/23/2024 6:40 PM JACK WINDER) Trop I hs 6 <=17 ng/L Comment: Code Blue Specimen Interpretive Data For further hscTnI resources including the diagnostic algorithm and an aid in interpretation, copy and paste this link: https://bjhlab.testcatalog.org/show/[email or web address] Current Interpretive Data last revised 2019. Blood 02/23/2024 6:40 PM JACK WINDER 02/23/2024 6:50 PM JACK WINDER Fabiana Wilson MD LAB BLOOD ORDERABLES Final Result Performing Organization Address [facility] Co de Phone Number ALEXANDER [facility] [place] [address] * (ABNORMAL) eGFR (02/23/2024 6:40 PM JACK WINDER) eGFR 13(L) >=60 mL/min/1. 73 m2 Comment: [...] last reviewed 2021. Blood 02/23/2024 6:40 PM JACK WINDER 02/23/2024 6:50 PM JACK WINDER Fabiana Wilson MD LAB BLOOD ORDERABLES Final Result Performing Organization Address City/[facility] Co de Phone Number ALEXANDER [facility] [place] [address] * (ABNORMAL) Differential, auto (02/23/2024 6:40 PM JACK WINDER) Neutrophil abs 6.6(H) 1.5 - 6.5 K/cumm Imm gran abs 0.1 0.0 - 0.1 K/cumm [facility] Lymphocyte abs 1.0 0.8 - 3.3 K/cumm [facility] Monocyte abs 1.0(H) 0.2 - 0.8 K/cumm [facility] Eosinophil abs 0.2 0.0 - 0.5 K/cumm [facility] Basophil abs 0.0 0.0 - 0.1 K/cumm [facility] Neutrophil pct 74.4 % [facility] Comment: Interpretive Data Percent cell count reference ranges are not reported, since discordance with absolute values may lead to misinterpretation of CBC data. Current Interpretive Data was last revised on 2017. Imm gran pct 0.8 % [facility] Comment: Interpretive Data Percent cell count reference ranges are not reported, since discordance with absolute values may lead to misinterpretation of CBC data. Current Interpretive Data was last revised on 2017. Lymphocyte pct 11.3 % [facility] Comment: Interpretive Data Percent cell count reference ranges are not reported, since discordance with absolute values may lead to misinterpretation of CBC data. Current Interpretive Data was last revised on 2017. Monocyte pct 10.7 % [facility] Comment: Interpretive Data Percent cell count reference ranges are not reported, since discordance with absolute values may lead to misinterpretation of CBC data. Current Interpretive Data was last revised on 2017. Eosinophil pct 2.3 % [facility] Comment: Interpretive Data Percent cell count reference ranges are not reported, since discordance with absolute values may lead to misinterpretation of CBC data. Current Interpretive Data was last revised on 2017. Basophil pct 0.5 % [facility] Comment: Interpretive Data Percent cell count reference ranges are not reported, since discordance with absolute values may lead to misinterpretation of CBC data. Current Interpretive Data was last revised on 2017. Blood 02/23/2024 6:40 PM JACK WINDER 02/23/2024 6:50 PM JACK WINDER Fabiana Wilson MD LAB BLOOD ORDERABLES Final Result Performing Organization Address City/[facility]/ZIP Co de Phone Number [facility] [place] [address] * (ABNORMAL) CBC with auto differential (02/23/2024 6:40 PM JACK WINDER) WBC 8.9 3.8 - 9.9 K/cumm Comment:Code Blue Specimen Hgb 9.7(L) 11.9 - 15.5 g/dL [facility] Hct 30.5(L) 35.6 - 45.5 % [facility] Plt 180 150 - 400 K/cumm [facility] MPV 9.7 9.1 - 12.3 fL [facility] RBC 2.86(L) 3.90 - 5.20 M/cumm [facility] MCV 106.6(H) 81.3 - 96.4 fL [facility] MCH 33.9(H) 27.1 - 33.3 pg [facility] MCHC 31.8(L) 32.3 - 35.7 g/dL [facility] RDW CV 13.3 11.1 - 14.9 % [facility] RDW SD 52.2(H) 35.7 - 48.1 fL [facility] NRBC abs 0.00 0.00 - 0.01 K/cumm [facility] Blood (Blood, Venous) 02/23/2024 6:40 PM JACK WINDER 02/23/2024 6:50 PM JACK WINDER Narrative [facility] - 02/23/2024 6:55 PM JACK WINDER Potential Stroke Patient Fabiana Wilson MD LAB BLOOD ORDERABLES Final Result Performing Organization Address [facility]/ZIP Co de Phone Number [facility] [place] [address] * (ABNORMAL) aPTT (02/23/2024 6:40 PM JACK WINDER) Pathologist [facility] aPTT 24(L) 28 - 38 sec Comment: Code Blue Specimen Interpretive Data Heparin therapeutic range: 66.0 - 100.0 seconds. Range based on correlation with therapeutic heparin activity range of 0.3 - 0.7 Units/mL. Current interpretive data was last revised on 2022. Blood (Blood, Venous) 02/23/2024 6:40 PM JACK WINDER 02/23/2024 6:50 PM JACK WINDER Narrative [facility] - 02/23/2024 7:08 PM JACK WINDER Potential stroke patient. Fabiana Wilson MD LAB BLOOD ORDERABLES Final Result Performing Organization Address [facility]/ZIP Co de Phone Number [facility] [place] [address] * Magnesium (02/23/2024 6:40 PM JACK WINDER) [facility] Magnesium 2.0 1.4 - 2.5 mg/dL Blood 02/23/2024 6:40 PM JACK WINDER 02/23/2024 6:50 PM JACK WINDER Radha Quintanilla MD LAB BLOOD ORDERABLES Fi nal Result [facility] [place] [address] * (ABNORMAL) Comprehensive metabolic panel (02/23/2024 6:40 PM JACK WINDER) Pathologist [facility] Sodium 140 135 - 145 mmol/L Comment:Code Blue Specimen Potassium, pl 3.5 3.3 - 4.9 mmol/L [facility] Comment:Code Blue Specimen Chloride 103 97 - 110 mmol/L [facility] Comment:Code Blue Specimen CO2 27 22 - 32 mmol/L [facility] Comment:Code Blue Specimen Anion gap 10 2 - 15 mmol/L [facility] Comment:Code Blue Specimen BUN 16 6 - 25 mg/dL [facility] Comment:Code Blue Specimen Creatinine 3.65(H) 0.60 - 1.10 mg/dL [facility] Comment:Code Blue Specimen Glucose 93 70 - 199 mg/dL [facility] Comment: Code Blue Specimen Interpretive Data Fasting [...] 2022. Calcium 7.5(L) 8.5 - 10.3 mg/dL [facility] Comment:Code Blue Specimen Bilirubin, total 0.2 0.1 - 1.2 mg/dL [facility] Comment:Code Blue Specimen Protein, pl 5.1(L) 6.5 - 8.5 g/dL [facility] Comment:Code Blue Specimen Albumin 2.9(L) 3.5 - 5.0 g/dL [facility] Comment:Code Blue Specimen Alk phos 53 40 - 130 Units/L [facility] Comment:Code Blue Specimen ALT <5(L) 7 - 45 Units/L [facility] Comment:Code Blue Specimen AST 12 10 - 45 Units/L [facility] Comment:Code Blue Specimen Blood (Blood, Venous) 02/23/2024 6:40 PM JACK WINDER 02/23/2024 6:50 PM JACK WINDER Narrative [facility] - 02/23/2024 7:22 PM JACK WINDER Potential Stroke Patient us Fabiana Wilson MD LAB BLOOD ORDERABLES Final Result [facility] [place] [address] * CTA Stroke Head Neck W WO Contrast (02/23/2024 6:35 PM JACK WINDER) Anatomical Region Laterality Modality Head and Neck N/A Computed Tomogra phy 02/23/2024 7:06 PM JACK WINDER Impressions 02/23/2024 7:15 PM JACK WINDER 1. ??Asymmetric calcifications of the left deep [...] Taylor Lundy M.D. Narrative 02/23/2024 7:15 PM JACK WINDER EXAMINATION: 1. Computed tomography angiography (CTA) of [...] Artery: no occlusion or significant stenosis L DESK ASSISTANT: origin of left DESK ASSISTANT. R DESK ASSISTANT: no occlusion or significant stenosis There is [...] Artery: no occlusion or significant stenosis L DESK ASSISTANT: origin of left DESK ASSISTANT. R DESK ASSISTANT: no occlusion or significant stenosis There is [...] prothrombin time, whole blood (02/23/2024 6:22 PM JACK WINDER) PT, POC 12.3 10.6 - 13.5 sec INR, bld, POC 1.0 0.9 - 1.2 [facility] Blood 02/23/2024 6:22 PM JACK WINDER 02/23/2024 6:22 PM JACK WINDER Fabiana Wilson MD LAB POCT ORDERABLES - DEVIC E Final Result Performing Organization Address [facility] Co de Phone Number [facility] [employer] [place] [address] * POCT glucose (02/23/2024 6:21 PM JACK WINDER) Glucose, POC 105 70 - 199 mg/dL Blood 02/23/2024 6:21 PM JACK WINDER 02/23/2024 6:21 PM JACK WINDER Fabiana Wilson MD LAB POCT ORDERABLES - DEVIC E Final Result Performing Organization Address City/[facility] Co de Phone Number [facility] [place] [place] [address] from Last 3 Months
--- OUTSIDE RECORDS SUMMARY | 2024-03-19 19:04 | XMS_ITS | Encounter Summary ---
Author Organization [facility] Healthcare Address [address] [place] [address] Care Team Providers Care Brand Marketing Intern Name Role Phone Jasson Cueva MD Primary Care Provider [phone] Reason for Visit * MRI/CAT/PET Scan (Routine) - Closed Specialty Diagnoses / Procedures Referred By Contac t Referred To Contact Procedures Neuro CT Outside Reference Angel Arriaga MD [address] [facility] [address] [place] [address] Phone: tel: fax: Referral ID Status Reason Start Date Expiration Date Visits Re quested Visits Authorized [id number] Closed 03/04/2024 04/03/2025 1 1 Encounter Details Date Type Department Care Team (Latest Contact Info) Description 03/04/2024 8:23 AM PHOTOGRAPHY TEACHER - 03/04/2024 11:59 PM [facility] Hospital Encounter [facility] [address] [place] [id number] Discharge Disposition: Discharge to home or self care Social History Tobacco Use Types Packs/Day Years Used Date Smoking Tobacco: Former Cigarettes [facility] Utilities Answer Date Recorded In the past 12 months has [employer] electric, gas, oil, or water company threatened [...] attend chur ch or faith services? Never 02/28/2023 Do you belong to [...] place to sleep or slept in a intermediate (including now)? No 02/28/2023 Personal Safety Answer Date Recorded Have you ever been in or are you currently in a harmful physical or emotional relationship or is someone making you feel afraid or unsafe? Denies 03/05/2024 Comments Unknown Sex and Gender Information Value Date Recorded Sex Assigned at Not on file Legal Sex Female 7:00 PM PHOTOGRAPHY TEACHER Gender Identity Not on file Sexual [...] Comments NEURO CT OUTSIDE REFERENCE Routine 03/04/2024 8:23 AM PHOTOGRAPHY TEACHER documented in this encounter Results * Neuro CT Outside Reference (03/04/2024 8:23 AM PHOTOGRAPHY TEACHER) Impressions [facility] - 03/04/2024 8:23 AM PHOTOGRAPHY TEACHER These images are for Reference purposes only and have not been reviewed by [facility] Radiology. ??There will be no report generated by a [facility] Radiologist. Narrative [facility] - 03/04/2024 8:23 AM PHOTOGRAPHY TEACHER EXAMINATION: ??Images For Reference Purposes Only us Angel Arriaga MD IMG CT PROCEDURES Final Re sult [facility] documented in this encounter Visit Diagnoses Not on filedocumented in this encounter Care Teams Brand Marketing Intern Relationship Specialty Start Date End Date Jasson Cueva MD [address] [place] [id number] PCP - General Family Medicine 02/27/24 documented as of this encounter
--- OUTSIDE RECORDS SUMMARY | 2024-03-19 19:04 | XMS_ITS | Encounter Summary ---
Author Organization [facility] Healthcare Address [address] [place] [address] Care Team Providers Care Sleeve Separator Name Role Phone No, Physician Primary Care Provider [phone] Jasson Cueva MD Primary Care Provider Reason for Referral * Home Health (Routine) - Closed Specialty Diagnoses / Procedures Referred By Contact Referred To Contact Home Health Services Diagnoses Stroke-like symptoms Angle La MD PhD [address] [place] [address] Phone: tel: fax: [facility] [address] [place] [id number] Phone: tel: fax: Referral ID Status Reason Start Date Expiration Date V isits Requested Visits Authorized [id number] Closed Specialty Services Required 02/26/2024 03/27/2025 1 1 Question [facility] Primary disciplines requested: Physical Therapy, Speech Language Pathology Secondary disciplines requested: Occupational Therapy Home Health Services Disease and Medication Management, Therapy to Eval/Tx Therapy instructions: Evaluation/treatment Requested Start of Care Date: 24-48 hours Physician to follow patient's care (the person listed here will be responsible for signing ongoing orders): PCP I attest that I or another qualified licensed provider saw the patient 90 days prior to or 30 days post admission and this face to face encounter meets the necessary Home Health requirements. The face to face encounter occurred on (date): 02/26/2024 The encounter with the patient was in whole, or in part, for the following medical condition, which is the primary reason for home health care. (List medical condition): Previous stroke with residual weakness I certify that, based on my findings, the following services are medically necessary skilled home health services: Therapy to Eval/Tx Clinical findings that support the need for home care: Medical condition requiring skilled assessment/education, Frequent falls requiring safety eval/therapy, Lack of knowledge regarding medications, requires education and assessment I certify that my clinical findings support patient's homebound status. Homebound criteria met because: Poor endurance, Abnormal gait/unsteady balance resulting in fall risk ON GRAPHICS DESIGNER * Consultation (Routine) - Pending Review Specialty Diagnoses / Procedures Referred By Jayce coronado Referred To Contact Neurology Diagnoses Stroke-like symptoms Angle La MD PhD [address] [place] [address] Phone: tel: fax: [facility] Stroke [address] [facility] [address] [place] [address] Phone: tel: fax: Referral ID Status Reason Start Date Expiration Date Visits Requested Visits Authorized [id number] Pending Review Specialty Services Required 03/27/2025 1 1 Question Answer Please select the performing region: [facility] (All Locations) [167] # of visits: 1 Comments Please schedule Trisha Waite for the next available new patient appointment with one of the following providers (first available). I evaluated Trisha Waite in the inpatient neurology service and have approved this visit. History of stroke, small vessel disease, aphasia, possible cavernoma/DVA ON GRAPHICS DESIGNER * Consultation (Routine) - Authorized Specialty Diagnoses / Procedures Referred By Jayce coronado Referred To Contact Neurosurgery Diagnoses Cerebral cavernoma Developmental venous anomaly Angle La MD PhD [address] [place] [address] Phone: tel: fax: [facility] (All Locations) Referral ID Status Reason Start Date Expiration Date Visits Requested Visits Authorized [id number] Authorized Specialty Services Required 4 03/27/2025 1 1 Question Answer Please select the performing region: [facility] (All Locations) [167] # of visits: 1 Comments Please schedule Trisha Dave Mariann for the next available new patient appointment with one of the following providers (first available). Possible cavernoma/DVA with deficits that correspond to the location of this lesion ON GRAPHICS DESIGNER Reason for Visit * Reason Comments Stroke * Auth/Cert (Routine) Specialty Diagnoses / Procedures Referred By Contac t Referred To Contact Diagnoses Intracranial hemorrhage (HCC) Procedures NA Referral ID Status Reason Start Date Expiration Date Visits Re quested Visits Authorized [id number] 1 1 Encounter Details Date Type Department Care Team (Latest Contact Info) Description 02/23/2024 6:15 PM MOTION GRAPHICS DESIGNER - 02/29/2024 4:37 PM MOTION GRAPHICS DESIGNER Hospital Encounter [facility] [address] [place] [address] Fabiana Wilson MD [address] [place] [address] Angle La MD PhD [address] [place] [address] Stroke-like symptoms (Primary Dx); Intracranial hemorrhage (HCC); Hypotension, unspecified hypotension type; Cerebral cavernoma; Developmental venous anomaly Discharge Disposition: Discharge to an IP Rehab facility Social History Tobacco Use Types Packs/Day Years Used Date Smoking Tobacco: Former Cigarettes [employer] Utilities Answer Date Recorded In the past 12 months has [employer], gas, oil, or water company threatened to [...] often do you attend chur ch or confucianist services? Never 02/28/2023 Do you [...] place to sleep or slept in a jail (including now)? No 02/28/2023 Personal Safety Answer Date Recorded Have you ever been in or are you currently in a harmful physical or emotional relationship or is someone making you feel afraid or unsafe? Denies 02/24/2024 Comments Unknown Sex and Gender Information Value Date Recorded Sex Assigned at Not on file Legal Sex Female 7:00 PM MOTION GRAPHICS DESIGNER Gender Identity Not on file Sexual Orientation Not on file documented as of this encounter Last Filed Vital Signs Vital Sign Reading Time Taken Comments Blood Pressure 123/80 02/29/2024 4:30 PM MOTION GRAPHICS DESIGNER Pulse 87 02/29/2024 4:30 PM MOTION GRAPHICS DESIGNER Temperature 37.2 ??C (98.9 ??F) 02/29/2024 2:00 PM CS T Respiratory Rate 20 02/29/2024 4:30 PM MOTION GRAPHICS DESIGNER Oxygen Saturation 95% 02/29/2024 4:30 PM MOTION GRAPHICS DESIGNER Inhaled Oxygen Concentration - - Weight 74.7 kg (164 lb 11.2 oz) 02/29/2024 5:36 AM MOTION GRAPHICS DESIGNER Height 170.2 cm (5' 7 ) 02/23/2024 8:21 PM MOTION GRAPHICS DESIGNER Body Mass Index 25.8 02/23/2024 8:21 PM MOTION GRAPHICS DESIGNER documented in this encounter Discharge Summaries * Cj Palacios MD - 02/29/2024 9:00 AM CST Inpatient Discharge Summary BRIEF OVERVIEW Admitting Provider: Fabiana Wilson MD Discharge Provider: Angle La MD PhD Primary Care Physician at Discharge: Jasson Cueva MD [phone] Admission Date: 02/23/2024 Discharge Date: 02/29/2024 Admission Location: [facility] Chief Complaint: Right-sided weakness Hospital Problems/Diagnoses: Principal Problem: Stroke-like symptoms Active Problems: ESRD (end stage renal disease) on dialysis (HCC) Hemodialysis-associated hypotension Aspiration into airway Neuropathic pain Resolved Problems: No resolved hospital problems. DETAILS OF HOSPITAL STAY Presenting Problem/History of Present Illness: Trisha Waite is a 73 y.o. female with past medical history of ESRD on HD TTS, HTN, undiagnosedCOPD, prior left BG/thalamus calcifications discovered in 2019 after stroke presentation (with residual RSW) who presented with hyperacute onset right sided weakness, right facial droop, and dysarthria. At baseline, she has mild right sided weakness in her upper and lower extremities. She lives with her son and ambulates with a walker, but requires assistance with dressing and bathing, and other IADLs. Patient had dialysis this morning, after which she felt 'wiped out', which is usual for her. LKN 16:35. At that time, she was taking her medications when she suddenly tensed up, back stiffened and neck extended. Her son notes that her eyes were wide but she did not have a gaze deviation. He then noticed that her right side was weak, as she was unable to lift it when asked. Possibly also slurred speech but hard to assess precisely since patient has poor dentition. She was taken to [facility] ED via helicopter. She was code stroke here. On arrival, BP 88/69 (up to 108/69 s/p 1L NS), HR 66. BG 105. NIHSS 11 (1 question, 1 face, 3 RUE, 3 RLE, 1 LLE, 1 sensory, 1 dysarthria). Exam notable for dysarthria without aphasia, right hemiparesis (improved to about 4/5 on re- examination), slight right sided numbness. CTH with left deep oliveira ca lcifications, obscuring whether there is any acute bleed. [...] chronic infarcts and severe white matter disease. Other workup in ED notable for: CMP with Na 140, K 3.5, Cr 3.65, Ca 7.5. CBC with Hgb 9.7, Plt 180.INR 1.0, aPTT 24. ECG with NSR, QTc 525. Trop 6. CXR with loop recorder, scarring in RML and RL base. For her prior stroke in 2019, from her son: she developed acute onset right facial weakness, followed by right sided weakness a few minutes later. At that time, they discovered the calcifications in her L BG/thalamus. Interval Events: [facility]. BP 99/62. Her NIHSS on arrival was 4 (RLE 1, sensory 1, dysarthria 1, extinction 1). She was given an additional 1L NS bolus. Hospital Course: Trisha Waite is a 73 y.o. woman with past medical history of ESRD on HD TTS, HTN, undiagnosed COPD, prior left BG/thalamic calcifications, and bilateral deep subcortical HTN microhemorrhages or bilateral mneralization, identified in 2019 after stroke presentation (with residual RSW) admitted with hyperacute onset of right sided weakness, right facial droop, and dysarthria. 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 BP and symptoms improved after bolus of IVF. Likely has flow-dependent lesion causing recrudescence of stroke symptoms, possibly related to her venous anomaly. She also appears to have a rhinitis, prior COPD?, and has had multiple coughing fits on OU compatible with the history of the event described by son. Initial NIHSS 11, follwed by NIHSS 4 after fluids (consistent with baseline deficits). Imaging without acute stroke or bleed. Less likely TIA or seizuregiven correlation with hypotension. She has features of ongoing aphasia and right hemiparesis but ac cording to family she has since recovered to her neurological baseline. Neuro-imaging: -- CTH with left deep oliveira calcifications, obscuring whether there is any acute bleed. -- CTA without LVO, but with venous anomaly in the left deep oliveira, with possible adjacent cavernoma. -- MRI showed no acute infarct and no convincing evidence of acute hemorrhage, with susceptibility artifact in bilateral BG and CBL favored to represent chronic mineralization or sequelae of prior hemorrhage (consistent with prior imaging reports of L BG/thalamic calcifications). Also with scattered chronic infarcts and severe white matter disease. Work up for provoking factors -- CXR (unremarkable), UA (neg), RPP (neg), BCx (in process), UDS (+ cannabinoids) -- rEEG to assess for possible epileptiform activity; post-ictal state is a possibility-->demonstrated no seizures, no epileptiform abnormalities , left hemisphere slowing, maximal over the left temporal region, and moderate generalized slowing. -- NSGY consulted, no recommendations felt developmental venous anomaly is chronic, signed off -- A1c (5.2), LDL (45), HDL (43), continue ASA (home medication) Plan: -- NC q4h -- BP goal: normotension -- NSGY follow-up for possible cavernoma/DVA, given that her deficits could correspond to a lesion in this location and she has clear residual deficits -- Would also benefit from neurology follow up to ensure her exam is tracked and followed and if any recurrence of similar episodes to the one leading to admission (in the absence of a provoking factor like hypotension etc) would reconsider seizure differential # Aspiration -- [employer]NA[employer] consult - recommend nectar thick liquids, mech soft solids, 100% supervision with PO -- She requires MBS at [facility] to clarify whether she still needs nectar thick liquids # Spell of abnormal behavior Her son witnessed the possible seizure-like spell. She had a 1 second-long episode of a coughing fit, he thought she was choking, she leaned forward and he patted her on the back, she pushed her headback and she coughed and her eyes opened widely, she was looking through him but after 1 sec she said she was ok. He has never had concerns for seizures for her before. Had rEEG without epileptiform discharges or seizures. There is low concern for seizures based on this description but she may beat risk given her age and microvascular disease. - Monitor for possible seizures Treatment/Disposition/Follow-Up: The patient was started on no new treatments. Disposition: Per PT/OT evaluation, the patient was discharged to [facility]. Therapy referrals: PT/OT/[employer] Follow-up: The patient will follow-up in the outpatient CAM clinic of [facility]. The contact information of the clinic is listed below: [facility] ([facility]) [address] [place] [phone] Other medical problems addressed during this hospitalization: # Hypertensive microangiopathy # Chronic infarcts ( right occipital, bilateral thalamic, and bilateral cerebellar lacunar) -- continue ASA -- d/c statin (LDL 45), not a home medication -- PT/OT consult # Neuropathic pain Has chronic right arm pain that started after her stroke in 2019. -- home gabapentin 100 TID, suboptimal medication amidst her ESRD, consider a wean or a switch in the outpatient setting -- tylenol PRN # Hypovolemic hypotension On arrival, BP 88/69 (up to 108/69 s/p 2L NS in ED). Received dialysis Sunday morning before admission, unclear how much fluid was removed. Given additional 1L NS [facility] On 02/26, had symptomatic hypotension w/ lightheadedness in the AM with BP low to 83/51. Given 1L NS bolus with improvement. Her recent nectar thick liquid requirement likely contributed to poor PO and hypovolemia. -- hold home anti-hypertensive -- Nephrology following, titrating dialysis as needed # HTN -- holding home metoprolol-XL 25mg daily and lasix 20mg on non-dialysis days iso recent hypotension # QTc prolongation -- QTc 525 on ECG in ED.Repeat was 468. Was not on QTc prolonging meds. Suspect inaccurate result given poor quality EKG -- avoid QT prolonging medications # Chronic Anemia in setting of ESRD Hgb 10.1. F/u outpatient -- transfuse for Hgb <7 # Implanted loop recorder According to family, placed in 2019 after her first stroke. # COPD, undiagnosed Not formally diagnosed. Former smoker (40 pack-year history). Recent ED admission 02/04 for SOB, improved with duonebs and prescribed a short course of PO prednisone. CT chest at the time demonstrated changes of centrilobular emphysema -- O2 for goal >88%, currently on RA -- PRN duonebs -- OOBTC as tolerated and IS -- would benefit from outpatient PFTs/pulmonology f/u # Posterior right 9th and 10th rib fractures Fell 02/03/24 and presented to OSH with chest pain. On CT chest (02/07/24) Found to have old healedbilateral rib fractures, interval healing of the previously noted acute right seventh rib fracture and acute nondisplaced fractures of the right ninth and tenth ribs posterolaterally -- APAP PRN -- supportive care # Oliguric ESRD on HD TTS Last dialysis session 02/27 -- consulted nephrology for HD -- access: LUE AV fistula -- continue home Sevelamer 800 TID -- holding home lasix 20 mg on non-dialysis days due to concern for hypovolemia -- BMP daily # Hypocalcemia in setting of ESRD Ca 7.9, ICa 3.82. -- 2g Ca gluconate overnight -- check ical in am -- consider Vit D and PO supplementation # Sepsis workup -- Arrived hypotensive, very responsive to fluids. No other signs of infection, infectious work up negative thus far -- CBC daily, patient remains afebrile Active Issues Requiring Follow-up: - Requires good follow-up with neurology and NSGY for secondary stroke prevention, and follow-up ofDVA vs cavernoma which appears to contribute to residual deficits, and monitoring for potential seizure-like events - monitoring blood pressures given hypovolemia after ESRD - MBS at [facility] - she is still on nectar thick liquids - Clarification of identified prolonged QTc Test Results Pending at Discharge: Pending Labs Order Current Status Hemoglobin A1c In process Lipid panel In process Magnesium In process Operative Procedures Performed: none Other Procedures: dialysis Discharge Details Physical Exam at Discharge: Discharge Condition: good Pulse: 90 Resp: 18 BP: 116/80 Temp: 36.4 ??C (97.5 ??F) Weight: 74.7 kg (164 lb 11.2 oz) Physical Exam: Mental Status Awake, alert, eyes open spontaneously, regards, good attention span, speech fluent with mild dysarthria without dentures, follows simple commands, able to perform cross-body commands but with R-L reversal. Oriented to person, age (with multiple choice), not place (said [place] with multiple choice)but able to identify that she grew up in [place], and partially to time (could say February after being told that [employer] lights were on houses now). Unsure of year. No issues naming objects today (glasses, pen), repetition intact. Cranial Nerves PERRL, EOMI, mild R NLF flattening, facial sensation intact. normal tongue protrusion, mild dysarthria not out of realm of being attributable to edentulous state Motor Slow and low amplitude R finger tapping Has hx of R shoulder surgery, right upper limb is held flexed against her trunk Right Left UPPER EXTREMITY Shoulder Abduction (C5, Axillary n., Deltoid) 4+ 5 Elbow Flexion (C5/6, MC +Radial n., Biceps/ Brachioradialis) 4+ 5 Elbow Extension (C7, Radial n., Triceps) 4+ 5 Wrist Extension (C6, Radial n., Extensor carpi radialis) 4 5 Finger extension, abduction and thumb abduction 3 to 4- At least 4 LOWER EXTREMITY Hip Flexion (L1/2, Iliopsoas) 4- 4+ Knee Extension (L3/4, Femoral n., Quadriceps) 5- 5 Knee Flexion (S1, Sciatic n., Hamstrings) 5- 5 Ankle Dorsiflexion (L4 < L5, Deep peroneal, Tibialis anterior) 4+ 5 Ankle Plantar Flexion (S1/S2, Tibial n., Gastroc/Soleus) 5 5 Sensory: Intact to light touch throughout. Discharge Disposition: Patient going home Code Status at Discharge: Full Code Discharge Instructions: Other Instructions Ambulatory referral to Home Health Service Line: Home Health Primary disciplines requested: Physical Therapy Speech Language Pathology Secondary disciplines requested: Occupational Therapy Home Health Services: Disease and Medication Management Therapy to Eval/Tx Therapy instructions: Evaluation/treatment Requested Start of Care Date: 24-48 hours Physician to follow patient's care (the person listed here will be responsible for signing ongoing orders): PCP I attest that I or another qualified licensed provider saw the patient 90 days prior to or 30 days post admission and this face to face encounter meets the necessary Home Health requirements. The face to face encounter occurred on (date): 02/26/2024 The encounter with the patient was in whole, or in part, for the following medical condition, whichis the primary reason for home health care. (List medical condition): Previous stroke with residualweakness I certify that, based on my findings, the following services are medically necessary skilled home health services: Therapy to Eval/Tx Clinical findings that support the need for home care: Medical condition requiring skilled assessment/education Frequent falls requiring safety eval/therapy Lack of knowledge regarding medications, requires education and assessment I certify that my clinical findings support patient's homebound status. Homebound criteria met because: Poor endurance Abnormal gait/unsteady balance resulting in fall risk Discharge Medications: Current Medications TAKE these medications aspirin 81 mg enteric coated tablet Take 1 tablet (81 mg total) by mouth daily cholecalciferol 5,000 unit tablet Take 1 tablet (5,000 Units total) by mouth daily Commonly known as: VITAMIN D-3 gabapentin 100 mg capsule Take 1 capsule (100 mg total) by mouth 3 (three) times a day Commonly known as: NEURONTIN HYDROcodone-acetaminophen 5-325 mg per tablet Take 1 tablet by mouth every 6 (six) hours as needed for pain Commonly known as: NORCO omeprazole 20 mg tablet,delayed release (DR/EC) Take 1 tablet (20 mg total) by mouth daily sevelamer 800 mg tablet Take 1 tablet (800 mg total) by mouth 3 (three) times a day with meals Commonly known as: RENAGEL Outpatient Follow-Up: No future appointments. Contact Information for Follow-ups [facility] (All Locations) Next Steps: Follow up Comments: Please schedule Trisha Aguilarry for the next available new patient appointment with oneof the following providers (first available). I evaluated Trisha Waite in the inpatient neurology service and have approved this visit. History of stroke, small vessel disease, possible cavernoma/DVA, spells of abnormal behavior Questions: Please select the performing region: [facility] (All Locations) # of visits: 1 Referral Status: Pending Coordinator Review [facility] (All Locations) Next Steps: Follow up Comments: Please schedule Trisha Waite for the next available new patient appointment with oneof the following providers (first available). Possible cavernoma/DVA with deficits that correspond to the location of this lesion Questions: Please select the performing region: [facility] (All Locations) # of visits: 1 Referral Status: Ready for Initial Scheduling [facility] (All Locations) Next Steps: Follow up Comments: Please schedule Trisha Aguilarry for the next available new patient appointment with oneof the following providers (first available). I evaluated Trisha Waite in the inpatient neurology service and have approved this visit. History of stroke, small vessel disease, aphasia, possible cavernoma/DVA Questions: Please select the performing region: [facility] (All Locations) # of visits: 1 Referral Status: Pending Coordinator Review [facility] Home Care Services Specialty: Home Health and Hospice [address] [facility] [address] Next Steps: Follow up Questions: Service Line: Home Health Primary disciplines requested: Physical Therapy Speech Language Pathology Secondary disciplines requested: Occupational Therapy Home Health Services: Disease and Medication Management Therapy to Eval/Tx Therapy instructions: Evaluation/treatment Requested Start of Care Date: 24-48 hours Physician to follow patient's care (the person listed here will be responsible for signing ongoing orders): PCP I attest that I or another qualified licensed provider saw the patient 90 days prior to or 30 days post admission and this face to face encounter meets the necessary Home Health requirements. The face to face encounter occurred on (date): 02/26/2024 The encounter with the patient was in whole, or in part, for the following medical condition, whichis the primary reason for home health care. (List medical condition): Previous stroke with residualweakness I certify that, based on my findings, the following services are medically necessary skilled home health services: Therapy to Eval/Tx Clinical findings that support the need for home care: Medical condition requiring skilled assessment/education Frequent falls requiring safety eval/therapy Lack of knowledge regarding medications, requires education and assessment I certify that my clinical findings support patient's homebound status. Homebound criteria met because: Poor endurance Abnormal gait/unsteady balance resulting in fall risk Referral Status: Pending Authorization Constantine Blake MD ON GRAPHICS DESIGNER ON GRAPHICS DESIGNER documented in this encounter Discharge Instructions * Discharge Instructions* Cj Palacios MD - 02/26/2024 8:45 AM MOTION GRAPHICS DESIGNER You were seen at [facility] because you had weakness and slurred speech after receivingdialysis. While you were admitted, we gave you fluids and your weakness and slurred speech improved. Your symptoms were not due to a new stroke but were due to a worsening of your previous stroke symptoms withlow blood pressure. You recovered from this and were back to your baseline prior to being discharged home. We also held some of your blood pressure medications while you were in the hospital because your blood pressures were on the lower side. You can continue to take these again after you go home. Please be aware of the following changes to your medications Stop taking amlodipine, lasix, and metoprolol because of your low blood pressures. Talk to your electrical installer and primary care doctor about if any when to restart this. Please be aware of the following appointments Neurosurgery: You were referred to neurosurgery because you have a blood vessel abnormality that likely is responsible for some of your weakness and should be monitored long-term. They should contactyou to schedule an appointment within a week or two, but if they do not you can call the clinic at [phone]. Neurology: You were referred to neurology because of your history of stroke and to monitor for any events concerning for possible seizure. You will follow at the [facility]. They should contact you to schedule an appointment within a week or two, but if they do not you can call the clinic at [phone]. [facility] ([facility]) [address] [place] [id number] ON GRAPHICS DESIGNER ON GRAPHICS DESIGNER ON GRAPHICS DESIGNER ON GRAPHICS DESIGNER ON GRAPHICS DESIGNER ON GRAPHICS DESIGNER ON GRAPHICS DESIGNER ON GRAPHICS DESIGNER * Appointments* Mirna Coronado RN - 02/26/2024 8:12 AM MOTION GRAPHICS DESIGNER Please schedule follow up appointment with your primary care physician within 5- 7 days of discharge. ON GRAPHICS DESIGNER * Attachments The following attachments cannot be sent through Care Everywhere. * Transient Ischemic Attack (General Information) (Salvadorean) documented in this encounter Medications at Time [...] Departure Means Destination Comment s Discharge to an Rehab facility [facility] documented in this encounter Progress Notes * Constantine Blake MD - 02/29/2024 6:50 AM CST General Neurology Progress Note Name: Trisha Waite Today: February 29, 2024 : 1950 Age: 73 y.o. female Admit: 02/23/2024 Bed: [id number] Subjective Trisha Waite is a 73 y.o. woman with past medical history of ESRD on HD TTS, HTN, undiagnosed COPD, prior left BG/thalamic calcifications/hemorrhage discovered in 2019 after stroke presentation (with residual RSW) who presented with hyperacute onset right sided weakness, right facial droop, and dysarthria. Interval History - no acute concerns overnight - VSS - SBPs remain improved today after symptomatic hypotension to 80s/50s previously this hospitalization. - dialysis tomorrow as outpatient iso planned discharge today. - pending IPR - plan to transport this afternoon Objective Medications: Scheduled: aspirin, 81 mg, oral, Daily gabapentin, 100 mg, oral, TID heparin, 1.5-6.9 mL, intra-catheter, Once heparin, 5,000 Units, subcutaneous, Q8H VARGHESE senna, 1 tablet, oral, BID sevelamer, 800 mg, oral, TID with meals sodium chloride 0.9%, 0.5-20 mL, intra-catheter, Q8H VARGHESE (ALT) Infusions: PRN: acetaminophen Saline lock IV AND sodium chloride 0.9% AND sodium chloride 0.9% AND sodium chloride 0.9% ipratropium-albuteroL ramelteon sodium chloride 0.9% Vitals: 24hr Min/Max: Temp Min: 36.2 ??C (97.2 ??F) Max: 37 ??C (98.6 ??F) Pulse Min: 67 Max: 94 BP Min: 111/83 Max: 163/75 Resp Min: 12 Max: 20 SpO2 Min: 91 % Max: 100 % Most Recent: Vitals: 02/29/24 0626 BP: Pulse: Resp: Temp: 36.9 ??C (98.5 ??F) SpO2: Intake/Output Summary (Last 24 hours) at 02/29/2024 0650 Last data filed at 02/28/2024 0800 Gross per 24 hour Intake 240 ml Output -- Net 240 ml Physical exam: Mental Status Awake, alert, eyes open spontaneously, regards, good attention span, speech fluent with mild dysarthria without dentures, follows simple commands, able to perform cross-body commands but with R-L reversal. Oriented to person, age (with multiple choice), not place (said [place] with multiple choice)but able to identify that she grew up in [place], and partially to time (could say February after being told that [employer] lights were on houses now). Unsure of year. No issues naming objects today (glasses, pen), repetition intact. Remainder of exam not significantly changed from 12/9 PM exam Lab/Diagnostic Review: I have reviewed the laboratory results. Pertinent updates in the subjective and assessment and plansections. Assessment/Plan Trisha Waite is a 73 y.o. woman with past medical history of ESRD on HD TTS, HTN, undiagnosed COPD, prior left BG/thalamic calcifications, and bilateral deep subcortical HTN microhemorrhages or bilateral mineralization, identified in 2019 after stroke presentation (with residual RSW) admitted with hyperacute onset of right sided weakness, right facial droop, and dysarthria. 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 BP and symptoms improved after bolus of IVF. Likely has flow-dependent lesion causing recrudescence of stroke symptoms, possibly related to her venous anomaly. She also appears to have a rhinitis, prior COPD?, and has had multiple coughing fits on OU compatible with the history of the event described by son. Initial NIHSS 11, follwed by NIHSS 4 after fluids (consistent with baseline deficits). Imaging without acute stroke or bleed. Less likely TIA or seizuregiven correlation with hypotension. She has features of ongoing aphasia and right hemiparesis but ac cording to family she has since recovered to her neurological baseline. Neuro-imaging: -- CTH with left deep oliveira calcifications, obscuring whether there is any acute bleed. -- CTA without LVO, but with venous anomaly in the left deep oliveira, with possible adjacent cavernoma. -- MRI showed no acute infarct and no convincing evidence of acute hemorrhage, with susceptibility artifact in bilateral BG and CBL favored to represent chronic mineralization or sequelae of prior hemorrhage (consistent with prior imaging reports of L BG/thalamic calcifications). Also with scattered chronic infarcts and severe white matter disease. Work up for provoking factors -- CXR (unremarkable), UA (neg), RPP (neg), BCx (in process), UDS (+ cannabinoids) -- rEEG to assess for possible epileptiform activity; post-ictal state is a possibility-->demonstrated no seizures, no epileptiform abnormalities , left hemisphere slowing, maximal over the left temporal region, and moderate generalized slowing. -- NSGY consulted, no recommendations felt developmental venous anomaly is chronic, signed off -- A1c (5.2), LDL (45), HDL (43), continue ASA (home medication) Plan: -- NC q4h -- BP goal: normotension -- NSGY follow-up for possible cavernoma/DVA, given that her deficits could correspond to a lesion in this location and she has clear residual deficits -- Would also benefit from neurology follow up to ensure her exam is tracked and followed and if any recurrence of similar episodes to the one leading to admission (in the absence of a provoking factor like hypotension etc) would reconsider seizure differential # Aspiration -- MANAGER ORACLE RETAIL consult - recommend nectar thick liquids, mech soft solids, 100% supervision with PO # Spell of abnormal behavior Her son witnessed the possible seizure-like spell. She had a 1 second-long episode of a coughing fit, he thought she was choking, she leaned forward and he patted her on the back, she pushed her headback and she coughed and her eyes opened widely, she was looking through him but after 1 sec she said she was ok. He has never had concerns for seizures for her before. Had rEEG without epileptiform discharges or seizures. There is low concern for seizures based on this description but she may beat risk given her age and microvascular disease. - Monitor for possible seizures # Hypertensive microangiopathy # Chronic infarcts ( right occipital, bilateral thalamic, and bilateral cerebellar lacunar) -- continue ASA -- d/c statin (LDL 45), not a home medication -- PT/OT consult # Neuropathic pain Has chronic right arm pain that started after her stroke in 2019. -- home gabapentin 100 TID, suboptimal medication amidst her ESRD, consider a wean or a switch in the outpatient setting -- tylenol PRN # Hypovolemic hypotension On arrival, BP 88/69 (up to 108/69 s/p 2L NS in ED). Received dialysis Sunday morning before admission, unclear how much fluid was removed. Given additional 1L NS after arrival to NNICU. On 02/26, had symptomatic hypotension w/ lightheadedness in the AM with BP low to 83/51. Given 1L NS bolus. -- hold home anti-hypertensive -- Will reach out to nephrology as her dialysis regimen may need to be titrated # HTN -- holding home metoprolol-XL 25mg daily and lasix 20mg on non-dialysis days iso recent hypotension # QTc prolongation -- QTc 525 on ECG in ED. Repeat was 468. Was not on QTc prolonging meds. Suspect inaccurate result given poor quality EKG -- avoid QT prolonging medications # Chronic Anemia in setting of ESRD Hgb 10.1. F/u outpatient -- transfuse for Hgb <7 # Implanted loop recorder According to family, placed in 2019 after her first stroke. # COPD, undiagnosed Not formally diagnosed. Former smoker (40 pack-year history). Recent ED admission 02/04 for SOB, improved with duonebs and prescribed a short course of PO prednisone. CT chest at the time demonstrated changes of centrilobular emphysema -- O2 for goal >88%, currently on RA -- PRN duonebs -- OOBTC as tolerated and IS -- would benefit from outpatient PFTs/pulmonology f/u # Posterior right 9th and 10th rib fractures Fell 02/03/24 and presented to OSH with chest pain. On CT chest (02/07/24) Found to have old healedbilateral rib fractures, interval healing of the previously noted acute right seventh rib fracture and acute nondisplaced fractures of the right ninth and tenth ribs posterolaterally -- APAP PRN -- supportive care # Oliguric ESRD on HD TTS -- nephrology managing HD -- access: LUE AV fistula -- continue home Sevelamer 800 TID -- holding home lasix 20 mg on non-dialysis days due to concern for hypovolemia -- BMP daily # Hypocalcemia in setting of ESRD Ca 7.9, ICa 3.82. -- consider Vit D and PO supplementation # Sepsis workup Arrived hypotensive, very responsive to fluids. No other signs of infection, infectious work up negative Code: Full Code Diet: Adult Diet Regular, Restricted; Juliette Thick Liquids; Mechanical Soft DVT: sqh Dispo: PT Recommendation/Plan: Inpatient Rehab Facility OT Recommendation: Inpatient Rehab Facility Diet Solids Recommendation: Mechanical soft / Diet Liquids Recommendations: Juliette thick Constantine Blake MD, PhD Neurology PGY-1 Cosigned by Angle La MD PhD at 03/01/2024 9:31 AM MOTION GRAPHICS DESIGNER ON GRAPHICS DESIGNER ON GRAPHICS DESIGNER Associated attestation - Angle La MD PhD - 03/01/2024 9:31 AM MOTION GRAPHICS DESIGNER I have seen and examined the patient on 02/29/2024. I agree with the findings and plan of care as documented in the resident's/fellow's note.. * Mirna Coronado RN - 02/28/2024 11:42 AM CST THIS IS FOR 02/29/24, SET UP EARLY, CM WILL BE WORKING FROM HOME 02/29/24, WANTED TO BE SET UP BEFORE. 02/28/24 1141 Discharge Summary Discharge Disposition Acute Rehab [facility] Facility [facility] Contact Number [phone] F:[phone] Facility Attending Name na Facility Attending Contact Number na Discharge Records Transfer Form Completed;Chart Copied Recommended Discharge Level of Care Acute Rehab Actual Discharge Level of Care Acute Rehab Does Actual Level of Care Match Care Team Recommendation? Yes Post Acute Care Plan Home Care Services N/A OP Services N/A DME N/A Post Acute Care Facility Yes Referral Status Accepted Accepted Post Acute Care Location and Contact [place] F: [phone] Discharge Additional Assistance Financial assistance Unable to assess Does the patient need discharge transport arranged? Yes Type of Transportation Ambulance/EMS Has discharge transport been arranged? Yes Details of Transportation [place] [facility] [phone] D/C Transport Anticipated Date 02/29/24 D/C Transport Anticipated Time 1400 Discharge Transportation Communication Mode of transport has been discussed with the patient/family. All are agreeable to the plan and understand their responsibilities to ensure the safe transfer. No further CM/SW intervention is anticipated at this time. Post Discharge Care Provider Post Discharge Care Plan DC Summary has been faxed to next level of care provider (see Follow Up Providers) Per medical team, patient is medically stable for discharge at this time. [facility] CM spoke with the patient/family, admissions, medical team, and RN regarding discharge planning, and all are agreeable to discharge. Post-acute care transfer packet completed and will be sent with the patient. RN provided with report number to nurses station. Room # will be provided by facility once at facility. Mode of transport has been discussed with the patient/family, MD, nursing staff. All are agreeable to plan and understand their responsibilities to ensure the safe transfer. ON GRAPHICS DESIGNER * Cj Palacios MD - 02/28/2024 11:41 AM CST General Neurology Progress Note Name: Trisha Waite Today: February 28, 2024 : 1950 Age: 73 y.o. female Admit: 02/23/2024 Bed: [id number] Subjective Trisha Waite is a 73 y.o. woman with past medical history of ESRD on HD TTS, HTN, undiagnosed COPD, prior left BG/thalamic calcifications/hemorrhage discovered in 2019 after stroke presentation (with residual RSW) who presented with hyperacute onset right sided weakness, right facial droop, and dysarthria. Interval History - no acute concerns overnight - VSS - SBPs improved today after symptomatic hypotension so 80s/50s yesterday - after that SBPs was 120s mostly - dialysis today - nephrology aware of her hypotension yesterday and they may alter the dialysis prescription - pending IPR - plan to transport there tomorrow afternoon Objective Medications: Scheduled: aspirin, 81 mg, oral, Daily gabapentin, 100 mg, oral, TID heparin, 5,000 Units, subcutaneous, Q8H VARGHESE senna, 1 tablet, oral, BID sevelamer, 800 mg, oral, TID with meals sodium chloride 0.9%, 0.5-20 mL, intra-catheter, Q8H VARGHESE (ALT) Infusions: PRN: acetaminophen Saline lock IV AND sodium chloride 0.9% AND sodium chloride 0.9% AND sodium chloride 0.9% ipratropium-albuteroL ramelteon Vitals: 24hr Min/Max: Temp Min: 36.2 ??C (97.2 ??F) Max: 37.2 ??C (99 ??F) Pulse Min: 64 Max: 110 BP Min: 111/83 Max: 163/75 Resp Min: 16 Max: 26 SpO2 Min: 92 % Max: 99 % Most Recent: Vitals: 02/28/24 1000 BP: Pulse: Resp: Temp: 36.2 ??C (97.2 ??F) SpO2: Intake/Output Summary (Last 24 hours) at 02/28/2024 1141 Last data filed at 02/28/2024 0800 Gross per 24 hour Intake 250 ml Output -- Net 250 ml Physical exam: Mental Status Awake, alert, eyes open spontaneously, regards, good attention span, speech fluent with mild dysarthria without dentures, follows simple commands but difficulty with cross-body commands, oriented to person, age (with multiple choice), not place (though could say [place] with multiple choice), and partially to time (could say February after being told that was the holiday that is coming up). Trouble naming some objects (e.g. phone and wedding ring but correctly identified a soda can and washcloth), repetition intact. Remainder of exam not significantly changed from 12/9 PM exam Lab/Diagnostic Review: I have reviewed the laboratory results. Pertinent updates in the subjective and assessment and plansections. Assessment/Plan Trisha E Waite is a 73 y.o. woman with past medical history of ESRD on HD TTS, HTN, undiagnosed COPD, prior left BG/thalamic calcifications, and bilateral deep subcortical HTN microhemorrhages or bilateral mneralization, identified in 2019 after stroke presentation (with residual RSW) admitted with hyperacute onset of right sided weakness, right facial droop, and dysarthria. 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 BP and symptoms improved after bolus of IVF. Likely has flow-dependent lesion causing recrudescence of stroke symptoms, possibly related to her venous anomaly. She also appears to have a rhinitis, prior COPD?, and has had multiple coughing fits on OU compatible with the history of the event described by son. Initial NIHSS 11, follwed by NIHSS 4 after fluids (consistent with baseline deficits). Imaging without acute stroke or bleed. Less likely TIA or seizuregiven correlation with hypotension. She has features of ongoing aphasia and right hemiparesis but ac cording to family she has since recovered to her neurological baseline. Neuro-imaging: -- CTH with left deep oliveira calcifications, obscuring whether there is any acute bleed. -- CTA without LVO, but with venous anomaly in the left deep oliveira, with possible adjacent cavernoma. -- MRI showed no acute infarct and no convincing evidence of acute hemorrhage, with susceptibility artifact in bilateral BG and CBL favored to represent chronic mineralization or sequelae of prior hemorrhage (consistent with prior imaging reports of L BG/thalamic calcifications). Also with scattered chronic infarcts and severe white matter disease. Work up for provoking factors -- CXR (unremarkable), UA (neg), RPP (neg), BCx (in process), UDS (+ cannabinoids) -- rEEG to assess for possible epileptiform activity; post-ictal state is a possibility-->demonstrated no seizures, no epileptiform abnormalities , left hemisphere slowing, maximal over the left temporal region, and moderate generalized slowing. -- NSGY consulted, no recommendations felt developmental venous anomaly is chronic, signed off -- A1c (5.2), LDL (45), HDL (43), continue ASA (home medication) Plan: -- NC q4h -- BP goal: normotension -- NSGY follow-up for possible cavernoma/DVA, given that her deficits could correspond to a lesion in this location and she has clear residual deficits -- Would also benefit from neurology follow up to ensure her exam is tracked and followed and if any recurrence of similar episodes to the one leading to admission (in the absence of a provoking factor like hypotension etc) would reconsider seizure differential # Aspiration -- MANAGER ORACLE RETAIL consult - recommend nectar thick liquids, mech soft solids, 100% supervision with PO # Spell of abnormal behavior Her son witnessed the possible seizure-like spell. She had a 1 second-long episode of a coughing fit, he thought she was choking, she leaned forward and he patted her on the back, she pushed her headback and she coughed and her eyes opened widely, she was looking through him but after 1 sec she said she was ok. He has never had concerns for seizures for her before. Had rEEG without epileptiform discharges or seizures. There is low concern for seizures based on this description but she may beat risk given her age and microvascular disease. - Monitor for possible seizures # Hypertensive microangiopathy # Chronic infarcts ( right occipital, bilateral thalamic, and bilateral cerebellar lacunar) -- continue ASA -- d/c statin (LDL 45), not a home medication -- PT/OT consult # Neuropathic pain Has chronic right arm pain that started after her stroke in 2019. -- home gabapentin 100 TID, suboptimal medication amidst her ESRD, consider a wean or a switch in the outpatient setting -- tylenol PRN # Hypovolemic hypotension On arrival, BP 88/69 (up to 108/69 s/p 2L NS in ED). Received dialysis Sunday morning before admission, unclear how much fluid was removed. Given additional 1L NS after arrival to NNICU. On 02/26, had symptomatic hypotension w/ lightheadedness in the AM with BP low to 83/51. Given 1L NS bolus. -- hold home anti-hypertensive -- Will reach out to nephrology as her dialysis regimen may need to be titrated # HTN -- holding home metoprolol-XL 25mg daily and lasix 20mg on non-dialysis days iso recent hypotension # QTc prolongation -- QTc 525 on ECG in ED. Repeat was 468. Was not on QTc prolonging meds. Suspect inaccurate result given poor quality EKG -- avoid QT prolonging medications # Chronic Anemia in setting of ESRD Hgb 10.1. F/u outpatient -- transfuse for Hgb <7 # Implanted loop recorder According to family, placed in 2019 after her first stroke. # COPD, undiagnosed Not formally diagnosed. Former smoker (40 pack-year history). Recent ED admission 02/04 for SOB, improved with duonebs and prescribed a short course of PO prednisone. CT chest at the time demonstrated changes of centrilobular emphysema -- O2 for goal >88%, currently on RA -- PRN duonebs -- OOBTC as tolerated and IS -- would benefit from outpatient PFTs/pulmonology f/u # Posterior right 9th and 10th rib fractures Fell 02/03/24 and presented to OSH with chest pain. On CT chest (02/07/24) Found to have old healedbilateral rib fractures, interval healing of the previously noted acute right seventh rib fracture and acute nondisplaced fractures of the right ninth and tenth ribs posterolaterally -- APAP PRN -- supportive care # Oliguric ESRD on HD TTS -- consulted nephrology for HD (mari Valadez, 02/25) -- access: LUE AV fistula -- continue home Sevelamer 800 TID -- holding home lasix 20 mg on non-dialysis days due to concern for hypovolemia -- BMP daily # Hypocalcemia in setting of ESRD Ca 7.9, ICa 3.82. -- consider Vit D and PO supplementation # Sepsis workup Arrived hypotensive, very responsive to fluids. No other signs of infection, infectious work up negative Code: Full Code Diet: Adult Diet Regular; Juliette Thick Liquids DVT: sqh Dispo: PT Recommendation/Plan: Inpatient Rehab Facility OT Recommendation: Inpatient Rehab Facility Diet Solids Recommendation: Mechanical soft / Diet Liquids Recommendations: Juliette thick Cj Palacios MD, PhD Neurology Cosigned by Angle La MD PhD at 02/28/2024 12:16 PM MOTION GRAPHICS DESIGNER ON GRAPHICS DESIGNER ON GRAPHICS DESIGNER Associated attestation - Angle La MD PhD - 02/28/2024 12:16 PM MOTION GRAPHICS DESIGNER I have seen and examined the patient on 02/28/24. I agree with the findings and plan of care as documented in the resident's/fellow's note.. My total time spent on patient care activities on 02/28/24 was 20 minutes. This includes time spentprior to the encounter and after the encounter in direct care of the patient. This time does not include time spent in any separately reportable services. * Lien Ocoha, PT - 02/28/2024 9:05 AM CST Physical Therapy Physical Therapy Progress Note NOTE: This is a summary note of the dominguez components of the treatment session. For full details, review chart for all flowsheets documented on by this physical therapy clinician on this date. Vital signs documented in vital signs flowsheet. Care plan progress documented in Care Plan Activity. For questions, please review the treatment team and contact the PT or RETAIL MANAGER IN TRAINING currently assigned to this patient. If a physical therapy clinician is not assigned to this patient, please call [phone]. 02/28/24 0905 PT Last Visit Session Type Treatment PT Received On 02/28/24 Safe Environment Arm band checked;Session completed bedside;Gait belt utilized for all out of bed mobility;Patient found sitting in chair Subjective Agreeable to Therapy Precautions Precautions Fall risk Pain Assessment Pain Assessment No/denies pain Cognition Orientation Oriented to person;Oriented to place;Oriented to time Static Sitting Balance Static Sitting-Level of Assistance Close supervision Static Standing Balance Static Standing-Balance Support Bilateral upper extremity supported (with WW) Static Standing-Level of Assistance Minimum assistance Static Standing-Comment/# of Minutes assist for balance Transfer 1 Transfer From 1 Sit Transfer Type 1 To and from Transfer to 1 Stand Technique 1 Sit to stand;Stand to sit Transfer Device 1 Wheeled walker Transfer Level of Assistance 1 Minimum Assist;Moderate Assist Trials/Comments 1 mod assist for sit to stand due to decreased force production and assist for proper hand placement, min assist for stand to sit to control descent Ambulation 1 Distance (ft) 1 22 Surface 1 Level tile Device 1 Wheeled walker Assistance 1 Minimum Assist Gait: Requires assist with 1 Maintaining balance;Weight shifting Gait: Requires verbal cues to 1 Utilize appropriate gait sequencing;Improve upright posture;Use assistive device safely Gait Deviations 1 Italia - decreased;Posture - flexed;Step length - decreased;Turns - difficulty Quality of Gait 1 decreased foot clearance on the right, assist to keep right foot inside walker during turns Basic Mobility - 6 Click How much difficulty does the patient have: Turning over in bed 3 How much difficulty does the patient currently have: Sitting down and standing up from a chair witharms? 2 How much difficulty does the patient have: Moving from lying on back to sitting on the side of the bed? 2 How much difficulty does the patient have: Moving to and from a bed to a chair including wheelchair? 2 How much help does the patient currently need: Walk in hospital room? 3 How much help from another person does the patient currently need: Climbing 3-5 steps with a railing? 2 Total 6 Click Score (range 6-24) 14 Score Interpretation 35.55 Safe Environment End of Therapy Session Safe Environment End of Therapy Session Call light within reach;Patient left in recliner;Chair alarm in place and activated;RN notified Plan Plan Continue with current plan;If this is the last note, consider this the discharge summary Recommendation/Plan PT Recommendation/Plan Inpatient Rehab Facility Patient at high risk for Falls;Injury due to reduced functional status;Injury due to balance deficits;Injury at home as patient has not returned to prior level of function Recommend Inpatient Rehab/Acute Rehab due to Ability to actively participate in intensive therapy 3hours/day, 5 days/week or 900 minutes per week;Highly motivated to participate in therapy;Impaired ability to complete functional mobility;Likely to return to the community at discharge with support system in place;Requires greater than 25% physical assistance with most mobility tasks;Requires multiple therapy disciplines to address functional deficits;Patient and caregiver require specialized skilled training due to new level of function/diagnosis;Requires skilled therapy interventions to address neurological deficits PT Frequency during current admission 5-7x/wk PT - Next Appointment 02/29/24 PT Time Calculation PT Start Time 904 PT Stop Time 927 PT Time Calculation (min) 23 min Multi-Disciplinary Problems (from Physical Therapy) Active Problems Problem: Mobility Start Date: 02/24/24 Goal Start Date Expected End Date End Date LTG - Patient will ambulate household distance with sup 02/24/24 03/26/24 -- Goal Start Date Expected End Date End Date STG - Patient will ambulate 100ft with LRD with sup 02/24/24 03/05/24 -- Goal Start Date Expected End Date End Date STG - Patient will ascend and descend six stairs with HR with sup 02/24/24 03/05/24 -- Problem: Transfers Start Date: 02/24/24 Goal Start Date Expected End Date End Date STG - Patient to transfer to and from sit to supine with sup 02/24/24 03/05/24 -- Goal Start Date Expected End Date End Date STG - Patient will transfer sit to and from stand with sup 02/24/24 03/05/24 -- ON GRAPHICS DESIGNER * Jelly Santo, OT - 02/28/2024 8:20 AM CST Occupational Therapy Occupational Therapy Progress Note NOTE: This is a summary note of the dominguez components of the treatment session. For full details, review chart for all flowsheets documented on by this occupational therapy clinician on this date. Vitalsigns documented in vital signs flowsheet. Care plan progress documented in Care Plan Activity. For questions, please review the treatment team and contact the occupational therapist currently assigned to this patient. If an occupational therapist is not assigned to this patient, please call [phone]. 02/28/24 0820 General Session Type Treatment OT Received On 02/28/24 Safe Environment Arm band checked;Patient found sitting in chair;Gait belt utilized for all out of bed mobility Subjective Agreeable to Therapy Family/Caregiver Present No Precautions Precautions Fall risk;DAPHNE Pain Assessment Pain Assessment No/denies pain Cognition Arousal/Alertness Alert Attention Span Attends with cues to redirect Current communication Appears Intact Orientation Oriented to person;Oriented to time;Oriented to place;Able to orient when provided withmultiple choice options Following Commands Follows one step commands with increased time Safety Judgment Decreased awareness of need for assistance Compliance/Behavior Easy to engage Balance Balance Yes Static Sitting Balance Static Sitting-Balance Support No upper extremity supported Static Sitting-Sitting Surface Chair Static Sitting-Level of Assistance Distant supervision Static Sitting-Comment/# of Minutes safety Static Standing Balance Static Standing-Balance Support Bilateral upper extremity supported (ww) Static Standing-Standing Surface Floor Static Standing-Level of Assistance Minimum assistance Static Standing-Comment/# of Minutes safety, steadying ADL ADLS (WDL) X Grooming Grooming: Where assessed Chair Grooming: Level of assistance Moderate Assist (setup task, total balance) Grooming: Assistance with Wash/dry face Toileting Toileting: Where assessed Chair Toileting: Level of assistance Moderate Assist Toileting: Assistance with Clothing management up;Posterior Bed Mobility Bed Mobility No (pt presents up in chair) Transfers Transfer Yes Transfer 1 Transfer From 1 Sit Transfer Type 1 To and from Transfer to 1 Stand Transfer Device 1 Wheeled walker Transfer Level of Assistance 1 Moderate Assist Trials/Comments 1 2 trials, mod assist for force production and cues for hand placement/body mechanics Transfers 2 Transfer From 2 Chair with arms Transfer Type 2 To and from Transfer to 2 Chair with arms Technique 2 Ambulation Transfer Device 2 Wheeled walker Transfer Level of Assistance 2 Moderate Assist Trials/Comments 2 a few steps at bedside mod assist for balance, cues for advancing walker and RLE Toilet Transfers Toilet Transfers Not tested Other Comments Comments Pt continues to benefit from skilled OT intervention to increase safety and participation in ADLs and functional mobility. Daily Activity - 6 Clicks Putting on and taking off regular lower body clothing 2 Bathing 2 Toileting 2 Putting on and taking off upper body clothing 3 Personal Grooming 2 Eating Meals 3 Total Score (range 6-24) 14 Score Interpretation 33.39 Safe Environment End of Therapy Session Safe Environment End of Therapy Session Patient left in recliner;Chair alarm in place and activated;Call light within reach;Overbed table within reach (pt with kristal belt in place for positioning, demo ability to undo velcro) Assessment Problem List Decreased ADL independence;Decreased IADL independence;Decreased functional mobility;Decreased balance;Decreased endurance;Decreased mobility Barriers to Discharge Current Mobility Status;Current ADL Status;Cognition Barrier Comments fall risk Plan Plan Continue with current plan;If this is the last note, consider this the discharge summary Recommendation/Plan OT Recommendation Inpatient Rehab Facility Patient at high risk for Falls;Readmission;Injury due to decreased ability to care for self;Injury due to reduced functional status;Injury due to impaired cognition;Injury due to balance deficits;Injury at home as patient has not returned to prior level of function Recommend Inpatient Rehab/Acute Rehab due to Ability to actively participate in intensive therapy 3hours/day, 5 days/week or 900 minutes per week;Highly motivated to participate in therapy;Not at baseline due to impaired ability to complete ADLs;Impaired ability to complete functional mobility;Likely to return to the community at discharge with support system in place;Requires greater than 25% physical assistance with most mobility tasks;Requires greater than 25% physical assistance with most ADL tasks;Requires multiple therapy disciplines to address functional deficits OT Frequency during current admission 5-7x/wk Treatment/Interventions during current admission ADL/IADL retraining;Balance Training;Bed mobility;Endurance training;Functional activity;Functional mobility training;Strengthening;Therapeutic activity Progress during current admission Progressing toward goals OT - Next Appointment 02/29/24 OT Time Calculation OT Start Time 819 OT Stop Time 40 OT Time Calculation (min) 20 min Multi-Disciplinary Problems (from Occupational Therapy) Active Problems Problem: Dressings Lower Extremities Start Date: 02/24/24 Goal Start Date Expected End Date End Date STG - Patient to complete lower body dressing with minimal assist 02/24/24 03/09/24 -- Problem: Grooming Start Date: 02/24/24 Goal Start Date Expected End Date End Date STG - Patient will complete grooming in standing with supervision 02/24/24 03/09/24 -- Problem: Transfers Start Date: 02/24/24 Goal Start Date Expected End Date End Date STG - Patient will perform toilet transfer with minimal assist 02/24/24 03/09/24 -- Problem: OT Misc Start Date: 02/24/24 Goal Start Date Expected End Date End Date OT LTG - Pt to complete self care with modified independence. 02/24/24 04/09/24 -- ON GRAPHICS DESIGNER * Cj Palacios MD - 02/27/2024 11:09 AM CST General Neurology Progress Note Name: Trisha Waite Today: February 27, 2024 : 1950 Age: 73 y.o. female Admit: 02/23/2024 Bed: [id number] Subjective Trisha Waite is a 73 y.o. woman with past medical history of ESRD on HD TTS, HTN, undiagnosed COPD, prior left BG/thalamic calcifications/hemorrhage discovered in 2019 after stroke presentation (with residual RSW) who presented with hyperacute onset right sided weakness, right facial droop, and dysarthria. Interval History - Overnight there was concern from nursing that she was A&O x2 instead of x3. The overnight resident found her orientation similar to previously documented neuro exams - SBPs lower after dialysis yesterday, ranging 80s-120s systolic - had symptomatic hypotension with lightheadedness to 80s/50s this AM, gave NS bolus with improvement in BP - labs unremarkable, Cr lower after dialysis Objective Medications: Scheduled: aspirin, 81 mg, oral, Daily gabapentin, 100 mg, oral, TID heparin, 5,000 Units, subcutaneous, Q8H VARGHESE senna, 1 tablet, oral, BID sevelamer, 800 mg, oral, TID with meals sodium chloride 0.9%, 0.5-20 mL, intra-catheter, Q8H VARGHESE (ALT) Infusions: PRN: acetaminophen Saline lock IV AND sodium chloride 0.9% AND sodium chloride 0.9% AND sodium chloride 0.9% ipratropium-albuteroL ramelteon Vitals: 24hr Min/Max: Temp Min: 36.4 ??C (97.5 ??F) Max: 37.2 ??C (98.9 ??F) Pulse Min: 69 Max: 106 BP Min: 83/51 Max: 150/95 Resp Min: 13 Max: 27 SpO2 Min: 88 % Max: 99 % Most Recent: Vitals: 02/27/24 1020 BP: 102/77 Pulse: 81 Resp: 17 Temp: 37.2 ??C (98.9 ??F) SpO2: 96% Intake/Output Summary (Last 24 hours) at 02/27/2024 1109 Last data filed at 02/26/2024 2344 Gross per 24 hour Intake 409 ml Output 1889 ml Net -1480 ml Physical exam: Mental Status Awake, alert, eyes open spontaneously, regards, good attention span, speech fluent with mild dysarthria without dentures, follows simple commands but difficulty with cross-body commands, oriented to person, age (with multiple choice), not place (although said [facility], which is closer than previous answers), and partially to time (knew that was soon and therefore knew it was February). Trouble naming some objects (e.g. phone but correctly identified knuckles), repetition intact. Remainder of exam not significantly changed from 12/9 PM exam Lab/Diagnostic Review: I have reviewed the laboratory results. Pertinent updates in the subjective and assessment and plansections. Assessment/Plan Trisha Waite is a 73 y.o. woman with past medical history of ESRD on HD TTS, HTN, undiagnosed COPD, prior left BG/thalamic calcifications, and bilateral deep subcortical HTN microhemorrhages or bilateral mneralization, identified in 2019 after stroke presentation (with residual RSW) admitted with hyperacute onset of right sided weakness, right facial droop, and dysarthria. 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 BP and symptoms improved after bolus of IVF. Likely has flow-dependent lesion causing recrudescence of stroke symptoms, possibly related to her venous anomaly. She also appears to have a rhinitis, prior COPD?, and has had multiple coughing fits on OU compatible with the history of the event described by son. Initial NIHSS 11, follwed by NIHSS 4 after fluids (consistent with baseline deficits). Imaging without acute stroke or bleed. Less likely TIA or seizuregiven correlation with hypotension. She has features of ongoing aphasia and right hemiparesis but ac cording to family she has since recovered to her neurological baseline. Neuro-imaging: -- CTH with left deep oliveira calcifications, obscuring whether there is any acute bleed. -- CTA without LVO, but with venous anomaly in the left deep oliveira, with possible adjacent cavernoma. -- MRI showed no acute infarct and no convincing evidence of acute hemorrhage, with susceptibility artifact in bilateral BG and CBL favored to represent chronic mineralization or sequelae of prior hemorrhage (consistent with prior imaging reports of L BG/thalamic calcifications). Also with scattered chronic infarcts and severe white matter disease. Work up for provoking factors -- CXR (unremarkable), UA (neg), RPP (neg), BCx (in process), UDS (+ cannabinoids) -- rEEG to assess for possible epileptiform activity; post-ictal state is a possibility-->demonstrated no seizures, no epileptiform abnormalities , left hemisphere slowing, maximal over the left temporal region, and moderate generalized slowing. -- NSGY consulted, no recommendations felt developmental venous anomaly is chronic, signed off -- A1c (5.2), LDL (45), HDL (43), continue ASA (home medication) Plan: -- NC q4h -- BP goal: normotension -- NSGY follow-up for possible cavernoma/DVA, given that her deficits could correspond to a lesion in this location and she has clear residual deficits -- Would also benefit from neurology follow up to ensure her exam is tracked and followed and if any recurrence of similar episodes to the one leading to admission (in the absence of a provoking factor like hypotension etc) would reconsider seizure differential # Aspiration -- MANAGER ORACLE RETAIL consult - recommend nectar thick liquids, mech soft solids, 100% supervision with PO # Spell of abnormal behavior Her son witnessed the possible seizure-like spell. She had a 1 second-long episode of a coughing fit, he thought she was choking, she leaned forward and he patted her on the back, she pushed her headback and she coughed and her eyes opened widely, she was looking through him but after 1 sec she said she was ok. He has never had concerns for seizures for her before. Had rEEG without epileptiform discharges or seizures. There is low concern for seizures based on this description but she may beat risk given her age and microvascular disease. - Monitor for possible seizures # Hypertensive microangiopathy # Chronic infarcts ( right occipital, bilateral thalamic, and bilateral cerebellar lacunar) -- continue ASA -- d/c statin (LDL 45), not a home medication -- PT/OT consult # Neuropathic pain Has chronic right arm pain that started after her stroke in 2019. -- home gabapentin 100 TID, suboptimal medication amidst her ESRD, consider a wean or a switch in the outpatient setting -- tylenol PRN # Hypovolemic hypotension On arrival, BP 88/69 (up to 108/69 s/p 2L NS in ED). Received dialysis Sunday morning before admission, unclear how much fluid was removed. Given additional 1L NS after arrival to NNICU. On 02/26, had symptomatic hypotension w/ lightheadedness in the AM with BP low to 83/51. Given 1L NS bolus. -- hold home anti-hypertensive -- Will reach out to nephrology as her dialysis regimen may need to be titrated # HTN -- holding home metoprolol-XL 25mg daily and lasix 20mg on non-dialysis days iso recent hypotension # QTc prolongation -- QTc 525 on ECG in ED. Repeat was 468. Was not on QTc prolonging meds. Suspect inaccurate result given poor quality EKG -- avoid QT prolonging medications # Chronic Anemia in setting of ESRD Hgb 10.1. F/u outpatient -- transfuse for Hgb <7 # Implanted loop recorder According to family, placed in 2019 after her first stroke. # COPD, undiagnosed Not formally diagnosed. Former smoker (40 pack-year history). Recent ED admission 02/04 for SOB, improved with duonebs and prescribed a short course of PO prednisone. CT chest at the time demonstrated changes of centrilobular emphysema -- O2 for goal >88%, currently on RA -- PRN duonebs -- OOBTC as tolerated and IS -- would benefit from outpatient PFTs/pulmonology f/u # Posterior right 9th and 10th rib fractures Fell 02/03/24 and presented to OSH with chest pain. On CT chest (02/07/24) Found to have old healedbilateral rib fractures, interval healing of the previously noted acute right seventh rib fracture and acute nondisplaced fractures of the right ninth and tenth ribs posterolaterally -- APAP PRN -- supportive care # Oliguric ESRD on HD TTS -- consulted nephrology for HD (due Allyson, 02/25) -- access: LUE AV fistula -- continue home Sevelamer 800 TID -- holding home lasix 20 mg on non-dialysis days due to concern for hypovolemia -- BMP daily # Hypocalcemia in setting of ESRD Ca 7.9, ICa 3.82. -- consider Vit D and PO supplementation # Sepsis workup Arrived hypotensive, very responsive to fluids. No other signs of infection, infectious work up negative Code: Full Code Diet: Adult Diet Regular; Juliette Thick Liquids DVT: sqh Dispo: PT Recommendation/Plan: (S) Inpatient Rehab Facility OT Recommendation: Inpatient Rehab Facility Diet Solids Recommendation: Mechanical soft / Diet Liquids Recommendations: Juliette thick Cj Vickstrom, MD, PhD Neurology Cosigned by Angle La MD PhD at 02/27/2024 11:35 AM MOTION GRAPHICS DESIGNER ON GRAPHICS DESIGNER ON GRAPHICS DESIGNER Associated attestation - Angle La MD PhD - 02/27/2024 11:35 AM MOTION GRAPHICS DESIGNER I have seen and examined the patient on 02/27/24. I have made edits and additions to the resident/fellow's note and agree with the plan of care as documented. My total time spent on patient care activities on 02/27/2024 was 20 minutes. This includes time spent prior to the encounter and after the encounter in direct care of the patient. This time does not include time spent in any separately reportable services. * Marco A Courtney, PT - 02/26/2024 11:59 AM CST Physical Therapy Progress Note NOTE: This is a summary note of the dominguez components of the treatment session. For full details, review chart for all flowsheets documented on by this physical therapy clinician on this date. Vital signs documented in vital signs flowsheet. Care plan progress documented in Care Plan Activity. For questions, please review the treatment team and contact the PT or RETAIL MANAGER IN TRAINING currently assigned to this patient. If a physical therapy clinician is not assigned to this patient, please call [phone]. 02/26/24 115 PT Last Visit Session Type Treatment PT Received On 02/26/24 Safe Environment Arm band checked;Patient found sitting in chair;Session completed bedside;Gait belt utilized for all out of bed mobility Subjective Agreeable to Therapy Family/Caregiver Present No Precautions Precautions Fall risk Pain Assessment Pain Assessment No/denies pain Cognition Arousal/Alertness Alert Orientation Oriented to person;Oriented to place;Oriented to time;Able to orient when provided withmultiple choice options;Oriented to situation Following Commands Follows multistep commands with repetition Compliance/Behavior Easy to engage Static Sitting Balance Static Sitting-Balance Support No upper extremity supported Static Sitting-Sitting Surface Bed Static Sitting-Level of Assistance Close supervision Static Sitting-Comment/# of Minutes for safety Static Standing Balance Static Standing-Balance Support Bilateral upper extremity supported (on ww) Static Standing-Standing Surface Floor Static Standing-Level of Assistance Minimum assistance Static Standing-Comment/# of Minutes min A for balance/safety Transfers Transfer Yes Transfer 1 Transfer From 1 Sit Transfer Type 1 To and from Transfer to 1 Stand Technique 1 Sit to stand;Stand to sit Transfers 2 Transfer From 2 Bed;Chair with arms Transfer Type 2 To and from Transfer to 2 Bed Technique 2 Stand and step Transfer Device 2 Wheeled walker Transfer Level of Assistance 2 Minimum Assist Trials/Comments 2 min A for balance/safety Ambulation 1 Distance (ft) 1 12 Surface 1 Level tile Device 1 Wheeled walker Assistance 1 Minimum Assist Gait: Requires assist with 1 Maintaining balance;Weight shifting Gait: Requires verbal cues to 1 Increase step length;Increase base of support Gait Deviations 1 Italia - decreased;Base of support - decreased;Heel strike - decreased;Step length - decreased;Posture - flexed Basic Mobility - 6 Click How much difficulty does the patient have: Turning over in bed 3 How much difficulty does the patient currently have: Sitting down and standing up from a chair witharms? 2 How much difficulty does the patient have: Moving from lying on back to sitting on the side of the bed? 3 How much difficulty does the patient have: Moving to and from a bed to a chair including wheelchair? 3 How much help does the patient currently need: Walk in hospital room? 3 How much help from another person does the patient currently need: Climbing 3-5 steps with a railing? 2 Total 6 Click Score (range 6-24) 16 Score Interpretation 38.32 Safe Environment End of Therapy Session Safe Environment End of Therapy Session Patient left in recliner;Chair alarm in place and activated;Call light within reach;Overbed table within reach Assessment Prognosis Good Problem List Reduced mobility;Decreased strength;Gait deviations;Impaired balance Barriers to Discharge Current Mobility Status Plan Plan Continue with current plan;If this is the last note, consider this the discharge summary Recommendation/Plan PT Recommendation/Plan (S) Inpatient Rehab Facility Patient at high risk for Falls;Readmission;Injury due to decreased ability to care for self;Injury due to reduced functional status;Injury due to balance deficits;Injury at home as patient has not returned to prior level of function Recommend Inpatient Rehab/Acute Rehab due to Ability to actively participate in intensive therapy 3hours/day, 5 days/week or 900 minutes per week;Highly motivated to participate in therapy;Not at baseline due to impaired ability to complete ADLs;Impaired ability to complete functional mobility;Likely to return to the community at discharge with support system in place;Requires greater than 25% physical assistance with most mobility tasks PT Frequency during current admission 5-7x/wk Treatment/Interventions during current admission Balance Training;Bed mobility;Endurance training;Functional activity;Functional transfer training;Gait training;Neuromuscular re-education;Stair traini ng;Strengthening;Therapeutic activity;Therapeutic exercise;Transfer training Progress during current admission Progressing toward goals PT - Next Appointment 02/27/24 PT Time Calculation PT Start Time 1159 PT Stop Time 1222 PT Time Calculation (min) 23 min Multi-Disciplinary Problems (from Physical Therapy) Active Problems Problem: Mobility Start Date: 02/24/24 Goal Start Date Expected End Date End Date LTG - Patient will ambulate household distance with sup 02/24/24 03/26/24 -- Goal Start Date Expected End Date End Date STG - Patient will ambulate 100ft with LRD with sup 02/24/24 03/05/24 -- Goal Start Date Expected End Date End Date STG - Patient will ascend and descend six stairs with HR with sup 02/24/24 03/05/24 -- Problem: Transfers Start Date: 02/24/24 Goal Start Date Expected End Date End Date STG - Patient to transfer to and from sit to supine with sup 02/24/24 03/05/24 -- Goal Start Date Expected End Date End Date STG - Patient will transfer sit to and from stand with sup 02/24/24 03/05/24 -- ON GRAPHICS DESIGNER * Yanelis Plummer - 02/26/2024 10:57 AM CST Occupational Therapy Occupational Therapy Progress Note NOTE: This is a summary note of the dominguez components of the treatment session. For full details, review chart for all flowsheets documented on by this occupational therapy clinician on this date. Vitalsigns documented in vital signs flowsheet. Care plan progress documented in Care Plan Activity. For questions, please review the treatment team and contact the occupational therapist currently assigned to this patient. If an occupational therapist is not assigned to this patient, please call [phone]. 02/26/24 8137 General Session Type Treatment OT Received On 02/26/24 Safe Environment Arm band checked;Patient found in supine;Gait belt utilized for all out of bed mobility Subjective Agreeable to Therapy Family/Caregiver Present No Precautions Precautions Fall risk Pain Assessment Pain Assessment No/denies pain Cognition Overall Cognitive Status Impaired Arousal/Alertness Alert Attention Span Attends with cues to redirect;Difficulty attending to directions Current communication (difficulty with word finding) Orientation Oriented to person;Oriented to place;Oriented to situation;Oriented to time;Able to orient when provided with multiple choice options Following Commands Follows one step commands consistently Safety Judgment Decreased awareness of need for safety Insight Decreased awareness of deficits Compliance/Behavior Easy to engage Static Sitting Balance Static Sitting-Balance Support No upper extremity supported;Feet supported Static Sitting-Sitting Surface Bed Static Sitting-Level of Assistance Close supervision Static Sitting-Comment/# of Minutes A for balance, safety Dynamic Sitting Balance Dynamic Sitting-Balance Support No upper extremity supported;Feet supported Dynamic Sitting-Balance Forward lean;Reaching for objects;Reaching across midline Dynamic Sitting-Sitting Surface Bed Dynamic Sitting-Level of Assistance Minimum assistance Dynamic Sitting-Comments A for balance, safety Static Standing Balance Static Standing-Balance Support Bilateral upper extremity supported (WW) Static Standing-Standing Surface Floor Static Standing-Level of Assistance Minimum assistance Static Standing-Comment/# of Minutes A for balance, safety Grooming Grooming: Where assessed Chair Grooming: Level of assistance Maximum Assist Grooming: Assistance with Increased time to complete;Balance;Safety;Sequencing;Attending to task (3/ task total balance. assist for thoroughness) LE Dressing LE Dressing: Where assessed Edge of bed LE Dressing: Level of assistance Moderate Assist LE Dressing: Assistance with Verbal cueing;Supervision/safety;Increased time to complete;Don/doff Rsock;Pull up over hips;Balance;Safety;Sequencing;Attending to task (11/28 task, mod balance. assist for positioning R leg but able to maintain position and don sock.) Room Mobility Room Mobility: Where assessed bed <>foot of bed<>chair Health Management: Equipment Walker Room Mobility: Level of Assistance Moderate Assist;Moderate Verbal Cues Room Mobility comment A for decreased force production, controlled descent, assist for weight shift, verbal cues to lift R foot, verbal cues for safe use of WW, balance, safety Bed Mobility Bed Mobility Yes Bed Mobility 1 Bed Mobility From 1 Supine Bed Mobility Type 1 To Bed Mobility to 1 Edge of bed Level of Assistance 1 Standby Assist Bed Mobility Comments 1 A for balance, safety, min verbal cues for sequencing Transfers Transfer Yes Transfer 1 Transfer From 1 Sit Transfer Type 1 To and from Transfer to 1 Stand Technique 1 Sit to stand;Stand to sit Transfer Device 1 Wheeled walker Transfer Level of Assistance 1 Moderate Assist Trials/Comments 1 2 trials. A for decreased force production, controlled descent, mod verbal cues for safe use of WW, balance, safety Toilet Transfers Toilet Transfer From Bed Toilet Transfer Type To Toilet Transfer to (chair as sim BS) Toilet Transfer Technique Ambulating Toilet Transfer: Equipment Wheeled walker Toilet Transfers Moderate assistance;Verbal cues Toilet Transfers Comments A for decreased force production, controlled descent, assist for weight shift, verbal cues to lift R foot, mod verbal cues for safe use of WW, balance, safety Daily Activity - 6 Clicks Putting on and taking off regular lower body clothing 2 Bathing 2 Toileting 2 Putting on and taking off upper body clothing 3 Personal Grooming 2 Eating Meals 3 Total Score (range 6-24) 14 Score Interpretation 33.39 Safe Environment End of Therapy Session Safe Environment End of Therapy Session Patient left in recliner;Chair alarm in place and activated;RN notified;Call light within reach;Overbed table within reach Assessment Problem List Decreased upper extremity range of motion;Decreased upper extremity strength;Decreasedsafe judgment during ADL;Decreased cognition;Decreased endurance;Decreased balance;Decreased fine motor control;Decreased functional mobility;Decreased ADL independence;Decreased IADL independence;Decreased gross motor control;Decreased UE function;Decreased response to environment;Poor/Decreased functional positioning;Decreased ROM;Decreased upper extremity function;Visual deficit Barriers to Discharge Current Mobility Status;Current ADL Status;Cognition;Decreased safety awareness Plan Plan Continue with current plan;If this is the last note, consider this the discharge summary Recommendation/Plan OT Recommendation Inpatient Rehab Facility Patient at high risk for Falls;Readmission;Injury due to decreased ability to care for self;Injury due to reduced functional status;Injury due to impaired cognition;Injury due to balance deficits;Injury at home as patient has not returned to prior level of function;Prolonged dependence for self care tasks Recommend Inpatient Rehab/Acute Rehab due to Ability to actively participate in intensive therapy 3hours/day, 5 days/week or 900 minutes per week;Highly motivated to participate in therapy;Not at baseline due to impaired ability to complete ADLs;Impaired ability to complete functional mobility;Likely to return to the community at discharge with support system in place;Requires greater than 25% physical assistance with most mobility tasks;Requires greater than 25% physical assistance with most ADL tasks;Requires multiple therapy disciplines to address functional deficits;Patient and caregiverrequire specialized skilled training due to new level of function/diagnosis;Requires skilled therapy interventions to address neurological deficits OT Frequency during current admission 5-7x/wk Treatment/Interventions during current admission ADL/IADL retraining;Balance Training;Bed mobility;Compensatory technique education;Cognitive retraining;Endurance training;Equipment eval/education;Functional activity;Functional mobility training;Functional transfer training;Neuromuscular re-education;Parent/caregiver training and education;Positioning;Positioning equipment;Range of motion;Strengthening;Therapeutic exercise;Therapeutic activity;Transfer training;Upper extremity motor function/functional skills;Visual motor/perceptual skills;Visual skills Progress during current admission Progressing toward goals OT - Next Appointment 02/27/24 OT Evaluation Complete Yes OT Time Calculation OT Start Time 1057 OT Stop Time 1121 OT Time Calculation (min) 24 min Multi-Disciplinary Problems (from Occupational Therapy) Active Problems Problem: Dressings Lower Extremities Start Date: 02/24/24 Goal Start Date Expected End Date End Date STG - Patient to complete lower body dressing with minimal assist 02/24/24 03/09/24 -- Problem: Grooming Start Date: 02/24/24 Goal Start Date Expected End Date End Date STG - Patient will complete grooming in standing with supervision 02/24/24 03/09/24 -- Problem: Transfers Start Date: 02/24/24 Goal Start Date Expected End Date End Date STG - Patient will perform toilet transfer with minimal assist 02/24/24 03/09/24 -- Problem: OT Misc Start Date: 02/24/24 Goal Start Date Expected End Date End Date OT LTG - Pt to complete self care with modified independence. 02/24/24 04/09/24 -- Cosigned by Marimar Butterfield OT at 02/26/2024 1:28 PM MOTION GRAPHICS DESIGNER ON GRAPHICS DESIGNER ON GRAPHICS DESIGNER * Mirna Coronado RN - 02/26/2024 8:13 AM CST 02/26/24811 Communications Important Message from Medicare notice given to patient? Yes IM letter completed with patient/chemical sales representative at bedside. Patient/chemical sales representative were informed ofthe planned discharge date, the date the beneficiary's financial liability begins, the beneficiary's appeal rights, and how and when to initiate an appeal. Patient/chemical sales representative were provided a copy of the IM letter and IM letter was placed in unit???s designated medical record bin to be uploaded into the patient???s chart. 02/26/24811 Discharge Summary Discharge Disposition Private residence;Home health care Recommended Discharge Level of Care Private residence Actual Discharge Level of Care Private residence Does Actual Level of Care Match Care Team Recommendation? No Reason for Mismatch Pt/family/disagree Post Acute Care Plan Home Care Services Yes Type of Home Care Services Home therapies Home Care Services Name and Phone Number Residential P:[phone]/F:[phone] OP Services N/A DME N/A Post Acute Care Facility N/A Discharge Additional Assistance Financial assistance Unable to assess Does the patient need discharge transport arranged? No (son) Post Discharge Care Provider Post Discharge Care Plan DC Summary has been faxed to next level of care provider (see Follow Up Providers) Per medical team, patient is medically stable for discharge at this time. Transportation will be provided by son. Patient and/or family are agreeable with the plan. If any further discharge needs arise, please contact the covering case worker. ON GRAPHICS DESIGNER * Cj Palacios MD - 02/26/2024 7:01 AM CST General Neurology Progress Note Name: Trisha Waite Today: February 26, 2024 : 1950 Age: 73 y.o. female Admit: 02/23/2024 Bed: [id number] Subjective Trisha Waite is a 73 y.o. woman with past medical history of ESRD on HD TTS, HTN, undiagnosed COPD, prior left BG/thalamic calcifications/hemorrhage discovered in 2019 after stroke presentation (with residual RSW) who presented with hyperacute onset right sided weakness, right facial droop, and dysarthria. Interval History - No acute events overnight - VSS, on RA since yesterday AM and satting well - labs notable for Cr 6.26, BUN 36, unremarkable CBC - repeat EKG yesterday with QTc 468 (prev 525) - [employer] evaluation today given coughing with meals - will receive dialysis today Objective Medications: Scheduled: aspirin, 81 mg, oral, Daily gabapentin, 100 mg, oral, TID heparin, 5,000 Units, subcutaneous, Q8H VARGHESE senna, 1 tablet, oral, BID sevelamer, 800 mg, oral, TID with meals sodium chloride 0.9%, 0.5-20 mL, intra-catheter, Q8H VARGHESE (ALT) Infusions: PRN: acetaminophen Saline lock IV AND sodium chloride 0.9% AND sodium chloride 0.9% AND sodium chloride 0.9% ipratropium-albuteroL Vitals: 24hr Min/Max: Temp Min: 36.3 ??C (97.4 ??F) Max: 36.7 ??C (98 ??F) Pulse Min: 63 Max: 87 BP Min: 119/81 Max: 169/98 Resp Min: 15 Max: 25 SpO2 Min: 93 % Max: 100 % Most Recent: Vitals: 02/26/24 0606 BP: Pulse: Resp: Temp: 36.3 ??C (97.4 ??F) SpO2: Intake/Output Summary (Last 24 hours) at 02/26/2024 0701 Last data filed at 02/25/2024 1800 Gross per 24 hour Intake 400 ml Output -- Net 400 ml Physical exam: GENERAL: appears stated age, comfortable in bed HEENT: NC/AT, MMM, congested with clear nasal discharge out of both nares CV: regular rate and rhythm LUNGS: no increased work of breathing on RA, intermittent coughing ABDOMEN: soft, nontender, nondistended EXTREMITIES: warm and well-perfused SKIN: warm and dry Mental Status Awake, alert, eyes open spontaneously, regards, good attention span, speech fluent with mild dysarthria without dentures, follows simple commands, oriented to person, not age (even with multiple choice), not place (even with multiple choice), nor time (even with multiple choice). Trouble naming some objects, repetition intact. Remainder of exam not significantly changed from 12/9 PM exam Lab/Diagnostic Review: I have reviewed the laboratory results. Pertinent updates in the subjective and assessment and plansections. Assessment/Plan Trisha Waite is a 73 y.o. woman with past medical history of ESRD on HD TTS, HTN, undiagnosed COPD, prior left BG/thalamic calcifications, and bilateral deep subcortical HTN microhemorrhages or bilateral mneralization, identified in 2019 after stroke presentation (with residual RSW) admitted with hyperacute onset of right sided weakness, right facial droop, and dysarthria. 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 BP and symptoms improved after bolus of IVF. Likely has flow-dependent lesion causing recrudescence of stroke symptoms, possibly related to her venous anomaly. She also appears to have a rhinitis, prior COPD?, and has had multiple coughing fits on OU compatible with the history of the event described by son. Initial NIHSS 11, follwed by NIHSS 4 after fluids (consistent with baseline deficits). Imaging without acute stroke or bleed. Less likely TIA or seizuregiven correlation with hypotension. She has features of ongoing aphasia and right hemiparesis but ac cording to family she has since recovered to her neurological baseline. Neuro-imaging: -- CTH with left deep oliveira calcifications, obscuring whether there is any acute bleed. -- CTA without LVO, but with venous anomaly in the left deep oliveira, with possible adjacent cavernoma. -- MRI showed no acute infarct and no convincing evidence of acute hemorrhage, with susceptibility artifact in bilateral BG and CBL favored to represent chronic mineralization or sequelae of prior hemorrhage (consistent with prior imaging reports of L BG/thalamic calcifications). Also with scattered chronic infarcts and severe white matter disease. Work up for provoking factors -- CXR (unremarkable), UA (neg), RPP (neg), BCx (in process), UDS (+ cannabinoids) -- rEEG to assess for possible epileptiform activity; post-ictal state is a possibility-->demonstrated no seizures, no epileptiform abnormalities , left hemisphere slowing, maximal over the left temporal region, and moderate generalized slowing. -- NSGY consulted, no recommendations felt developmental venous anomaly is chronic, signed off -- A1c (5.2), LDL (45), HDL (43), continue ASA (home medication) Plan: -- NC q4h -- BP goal: normotension -- NSGY follow-up for possible cavernoma/DVA, given that her deficits could correspond to a lesion in this location and she has clear residual deficits -- Would also benefit from neurology follow up to ensure her exam is tracked and followed and if any recurrence of similar episodes to the one leading to admission (in the absence of a provoking factor like hypotension etc) would reconsider seizure differential #Concern for aspiration -- [employer] consult -- NPO until evaluated by ST given concerning coughing fits with eating # Spell of abnormal behavior Her son witnessed the possible seizure-like spell. She had a 1 second-long episode of a coughing fit, he thought she was choking, she leaned forward and he patted her on the back, she pushed her headback and she coughed and her eyes opened widely, she was looking through him but after 1 sec she said she was ok. He has never had concerns for seizures for her before. Had rEEG without epileptiform discharges or seizures. There is low concern for seizures based on this description but she may beat risk given her age and microvascular disease. - Monitor for possible seizures # Hypertensive microangiopathy # Chronic infarcts ( right occipital, bilateral thalamic, and bilateral cerebellar lacunar) -- continue ASA -- d/c statin (LDL 45), not a home medication -- PT/OT consult # Neuropathic pain Has chronic right arm pain that started after her stroke in 2019. -- home gabapentin 100 TID, suboptimal medication amidst her ESRD, consider a wean or a switch in the outpatient setting -- tylenol PRN # Hypovolemic hypotension, improved On arrival, BP 88/69 (up to 108/69 s/p 2L NS in ED). Received dialysis Sunday morning, unclear how much fluid was removed. [facility] -- discontinue mIVF, as eating and drinking fluids well -- hold home anti-hypertensive -- sepsis work up as above but no signs of septic shock # HTN -- holding home metoprolol-XL 25mg daily and lasix 20mg on non-dialysis days iso recent hypotension # QTc prolongation -- QTc 525 on ECG in ED. Repeat was 468. Was not on QTc prolonging meds. Suspect inaccurate result given poor quality EKG -- avoid QT prolonging medications # Chronic Anemia in setting of ESRD Hgb 10.1. F/u outpatient -- transfuse for Hgb <7 # Implanted loop recorder According to family, placed in 2019 after her first stroke. # COPD, undiagnosed Not formally diagnosed. Former smoker (40 pack-year history). Recent ED admission 02/04 for SOB, improved with duonebs and prescribed a short course of PO prednisone. CT chest at the time demonstrated changes of centrilobular emphysema -- O2 for goal >88%, currently on RA -- PRN duonebs -- OOBTC as tolerated and IS -- would benefit from outpatient PFTs/pulmonology f/u # Posterior right 9th and 10th rib fractures Fell 02/03/24 and presented to OSH with chest pain. On CT chest (02/07/24) Found to have old healedbilateral rib fractures, interval healing of the previously noted acute right seventh rib fracture and acute nondisplaced fractures of the right ninth and tenth ribs posterolaterally -- APAP PRN -- supportive care # Oliguric ESRD on HD TTS -- consulted nephrology for HD (due Allyson, 02/25) -- access: LUE AV fistula -- continue home Sevelamer 800 TID -- holding home lasix 20 mg on non-dialysis days due to concern for hypovolemia -- BMP daily # Hypocalcemia in setting of ESRD Ca 7.9, ICa 3.82. -- 2g Ca gluconate overnight -- check ical in am -- consider Vit D and PO supplementation # Sepsis workup -- Arrived hypotensive, very responsive to fluids. No other signs of infection, infectious work up negative thus far -- CBC daily, patient remains afebrile Code: Full Code Diet: Adult Diet Restricted; Mechanical Soft DVT: sqh Dispo: PT Recommendation/Plan: Inpatient Rehab Facility OT Recommendation: Inpatient Rehab Facility / Cj Palacios MD, PhD Neurology Cosigned by Angle La MD PhD at 02/27/2024 9:04 PM MOTION GRAPHICS DESIGNER ON GRAPHICS DESIGNER ON GRAPHICS DESIGNER ON GRAPHICS DESIGNER Associated attestation - Angle La MD PhD - 02/27/2024 9:04 PM MOTION GRAPHICS DESIGNER I have seen and examined the patient on 02/26/2024. I have made edits and additions to the resident/fellow's note and agree with the plan of care as documented. My total time spent on patient care activities on 02/26/2024 was 20 minutes. This includes time spent prior to the encounter and after the encounter in direct care of the patient. This time does not include time spent in any separately reportable services. * Marimar Butterfield, OT - 02/25/2024 10:04 AM CST Occupational Therapy Occupational Therapy Progress Note NOTE: This is a summary note of the dominguez components of the treatment session. For full details, review chart for all flowsheets documented on by this occupational therapy clinician on this date. Vitalsigns documented in vital signs flowsheet. Care plan progress documented in Care Plan Activity. For questions, please review the treatment team and contact the occupational therapist currently assigned to this patient. If an occupational therapist is not assigned to this patient, please call [phone]. 02/25/24 1004 General Session Type Treatment OT Received On 02/25/24 Safe Environment Arm band checked;Patient found in supine;Gait belt utilized for all out of bed mobility Subjective Agreeable to Therapy Family/Caregiver Present No Precautions Precautions Fall risk Pain Assessment Pain Assessment No/denies pain Cognition Arousal/Alertness Alert;Appropriate responses to stimuli Attention Span Distractability;Controlled environment Orientation Oriented to person (ox person with choices, month with choices. Notes situation as I fell denied notification of findings of imaging.) Following Commands Follows one step commands consistently Insight Decreased awareness of deficits Compliance/Behavior Easy to engage Static Sitting Balance Static Sitting-Balance Support No upper extremity supported Static Sitting-Level of Assistance Close supervision Static Standing Balance Static Standing-Balance Support Bilateral upper extremity supported Static Standing-Level of Assistance Minimum assistance Grooming Grooming: Where assessed Edge of bed Grooming: Level of assistance Maximum Assist Grooming: Assistance with Manipulation of containers (min for task, total for balance) Toileting Toileting: Where assessed (standing at bedside) Toileting: Level of assistance Maximum Assist Toileting: Assistance with Posterior;Anterior;Clothing management down;Clothing management up;Perineal hygiene Bed Mobility 1 Bed Mobility From 1 Supine Bed Mobility Type 1 To and from Bed Mobility to 1 Short sit;Edge of bed Level of Assistance 1 Minimum Assist Bed Mobility Comments 1 A for trunk elevation Transfer 1 Transfer From 1 Sit Transfer Type 1 To and from Transfer to 1 Stand Technique 1 Stand to sit;Sit to stand Transfer Device 1 Wheeled walker Transfer Level of Assistance 1 Minimum Assist Trials/Comments 1 A for force production, balance, correct R lateral lean, increased time for hip extension Transfers 2 Trials/Comments 2 Upon standing, pt notes feeling of lightheadedness, returned to sitting, BP foundto have increased from pre activity vitals. Pt notes symptoms improved. Pt transferred from sittingto standing a second time and denied dizziness, pt cued to attempt weight shifting, however unable.pt laterally pivots to the left from foot to head of bed with ww with mod A for balance, controlleddescent, weight shift. Toilet Transfers Toilet Transfers Comments NT 2/2 safety concern Therapeutic Exercise - ROM/STRENGTH ROM/STRENGTH Yes All Joints - ROM/Strength - Right R Motion All Joints AAROM R Position All Joints Supine R Weight/Reps/Sets All Joints 5 reps of shoulder, elbow flexion/extension, digital flexion/extension, digital opposition RUE Assessment RUE Comments digital flexion 4/5, impaired coordination. Serial opposition required increased time and cues and demonstrated decreased accuracy RUE Strength R Shoulder Flexion 3-/5 R Elbow Flexion 4/5 R Elbow Extension 4/5 Daily Activity - 6 Clicks Putting on and taking off regular lower body clothing 2 Bathing 2 Toileting 2 Putting on and taking off upper body clothing 3 Personal Grooming 2 Eating Meals 3 Total Score (range 6-24) 14 Score Interpretation 33.39 Safe Environment End of Therapy Session Safe Environment End of Therapy Session Patient left supine in bed;Bed alarm in place and activated;RN notified;Call light within reach;Overbed table within reach;Bed in lowest position with wheels locked Assessment Problem List Decreased upper extremity strength;Decreased safe judgment during ADL;Decreased cognition;Decreased endurance;Visual deficit;Decreased balance;Decreased fine motor control;Decreased functional mobility;Decreased ADL independence;Decreased IADL independence;Decreased UE function;Decreased trunk control for functional activities Plan Plan Continue with current plan;If this is the last note, consider this the discharge summary Recommendation/Plan OT Recommendation Inpatient Rehab Facility Patient at high risk for Falls;Readmission;Injury due to decreased ability to care for self;Injury due to impaired cognition;Injury due to balance deficits;Injury due to reduced functional status;Developing impaired skin integrity;Injury at home as patient has not returned to prior level of function ;Prolonged dependence for self care tasks Recommend Inpatient Rehab/Acute Rehab due to Ability to actively participate in intensive therapy 3hours/day, 5 days/week or 900 minutes per week;Highly motivated to participate in therapy;Not at baseline due to impaired ability to complete ADLs;Requires greater than 25% physical assistance with most ADL tasks;Impaired ability to complete functional mobility;Likely to return to the community at discharge with support system in place;Requires greater than 25% physical assistance with most mobility tasks;Requires multiple therapy disciplines to address functional deficits;Requires skilled therapy interventions to address neurological deficits OT Frequency during current admission 5-7x/wk Treatment/Interventions during current admission ADL/IADL retraining;Balance Training;Bed mobility;Cognitive retraining;Compensatory technique education;Endurance training;Functional activity;Functional mobility training;Functional transfer training;Neuromuscular re-education;Midline orientation;Positioning;Parent/caregiver training and education;Range of motion;Sensorimotor skills;Strengthening;Therapeutic activity;Therapeutic exercise;Transfer training;Upper extremity motor function/functional skills Progress during current admission Slow progress, decreased activity tolerance (limited by dizziness this session) OT - Next Appointment 02/26/24 OT Time Calculation OT Start Time 1004 OT Stop Time 1033 OT Time Calculation (min) 29 min Multi-Disciplinary Problems (from Occupational Therapy) Active Problems Problem: Dressings Lower Extremities Start Date: 02/24/24 Goal Start Date Expected End Date End Date STG - Patient to complete lower body dressing with minimal assist 02/24/24 03/09/24 -- Problem: Grooming Start Date: 02/24/24 Goal Start Date Expected End Date End Date STG - Patient will complete grooming in standing with supervision 02/24/24 03/09/24 -- Problem: Transfers Start Date: 02/24/24 Goal Start Date Expected End Date End Date STG - Patient will perform toilet transfer with minimal assist 02/24/24 03/09/24 -- Problem: OT Misc Start Date: 02/24/24 Goal Start Date Expected End Date End Date OT LTG - Pt to complete self care with modified independence. 02/24/24 04/09/24 -- ON GRAPHICS DESIGNER * Cj Palacios MD - 02/25/2024 8:13 AM CST General Neurology Progress Note Name: Trisha Waite Today: February 25, 2024 : 1950 Age: 73 y.o. female Admit: 02/23/2024 Bed: [id number] Subjective Trisha Waite is a 73 y.o. woman with past medical history of ESRD on HD TTS, HTN, undiagnosed COPD, prior left BG/thalamic calcifications/hemorrhage discovered in 2019 after stroke presentation (with residual RSW) who presented with hyperacute onset right sided weakness, right facial droop, and dysarthria. Interval History - No acute events overnight - She had no concerns this AM but later felt bad but could not specify why, later in the afternoon was feeling well - On 1-2 L NC overnight with sats in the high 90s. Given concern for COPD, turned off O2 and will titrate O2 to keep sats >88% - Labs notable for Cr 5.37, due for dialysis tomorrow, consulted nephrology for this - her son thought she was back to her baseline yesterday when he saw her - obtained more history regarding the possible seizure spell from her son: she had a 1 second-long episode of a coughing fit, he thought she was choking, she leaned forward and he patted on the back,she pushed her head back and she coughed and her eyes opened widely, she was looking through him but after 1 sec, she said she was ok. He has never had concerns for seizures for her before. - on OU/SDU she is having fairly severe coughing fits, worst in the postprandial period Objective Medications: Scheduled: aspirin, 81 mg, oral, Daily gabapentin, 100 mg, oral, TID heparin, 5,000 Units, subcutaneous, Q8H VARGHESE senna, 1 tablet, oral, BID sevelamer, 800 mg, oral, TID with meals sodium chloride 0.9%, 0.5-20 mL, intra-catheter, Q8H VARGHESE (ALT) Infusions: PRN: acetaminophen Saline lock IV AND sodium chloride 0.9% AND sodium chloride 0.9% AND sodium chloride 0.9% ipratropium-albuteroL Vitals: 24hr Min/Max: Temp Min: 36.6 ??C (97.8 ??F) Max: 37.2 ??C (98.9 ??F) Pulse Min: 55 Max: 87 BP Min: 103/91 Max: 157/91 Resp Min: 13 Max: 25 SpO2 Min: 90 % Max: 100 % Most Recent: Vitals: 02/25/24 1202 BP: 152/96 Pulse: 87 Resp: 25 Temp: SpO2: 97% Intake/Output Summary (Last 24 hours) at 02/25/2024 1323 Last data filed at 02/25/2024 0500 Gross per 24 hour Intake 110 ml Output 400 ml Net -290 ml Physical exam: This AM: lots of somewhat violent coughing with eating (severe enough to lead her to fall over in bed) This afternoon GENERAL: appears stated age, sitting up comfortably in bed HEENT: NC/AT, MMM, congested with clear nasal discharge out of both nares CV: regular rate and rhythm LUNGS: no increased work of breathing ABDOMEN: soft, nontender, nondistended EXTREMITIES: warm and well-perfused SKIN: warm and dry Mental Status Awake, alert, eyes open spontaneously, regards, good attention span, speech fluent, follows simple commands but not cross-body commands, oriented to person, place (hospital but not [place]) and time (year with choices). Trouble naming some objects but can do so with multiple choice, and couldn't identify the relationship of the person she lives with (even with multiple choice), repetition intact. Calculation intact. Abstract reasoning intact. Cranial Nerves PERRL, EOMI, mild R NLF flattening, facial sensation intact. normal tongue protrusion, mild dysarthria not out of realm of being attributable to edentulous state Motor Slow and low amplitude R finger tapping Has hx of R shoulder surgery, right upper limb is held flexed against her trunk Right Left UPPER EXTREMITY Shoulder Abduction (C5, Axillary n., Deltoid) 4+ 5 Elbow Flexion (C5/6, MC +Radial n., Biceps/ Brachioradialis) 4+ 5 Elbow Extension (C7, Radial n., Triceps) 4+ 5 Wrist Extension (C6, Radial n., Extensor carpi radialis) 4 5 Finger extension, abduction and thumb abduction 3 to 4- At least 4 LOWER EXTREMITY Hip Flexion (L1/2, Iliopsoas) 4- 4+ Knee Extension (L3/4, Femoral n., Quadriceps) 5- 5 Knee Flexion (S1, Sciatic n., Hamstrings) 5- 5 Ankle Dorsiflexion (L4 < L5, Deep peroneal, Tibialis anterior) 4+ 5 Ankle Plantar Flexion (S1/S2, Tibial n., Gastroc/Soleus) 5 5 Sensory: Intact to light touch throughout. Lab/Diagnostic Review: I have reviewed the laboratory results. Pertinent updates in the subjective and assessment and plansections. Assessment/Plan Trisha Waite is a 73 y.o. woman with past medical history of ESRD on HD TTS, HTN, undiagnosed COPD, prior left BG/thalamic calcifications, and bilateral deep subcortical HTN microhemorrhages or bilateral mneralization, identified in 2019 after stroke presentation (with residual RSW) admitted with hyperacute onset of right sided weakness, right facial droop, and dysarthria. 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 BP and symptoms improved after bolus of IVF. Likely has flow-dependent lesion causing recrudescence of stroke symptoms, possibly related to her venous anomaly. She also appears to have a rhinitis, prior COPD?, and has had multiple coughing fits on OU compatible with the history of the event described by son. Initial NIHSS 11, follwed by NIHSS 4 after fluids (consistent with baseline deficits). Imaging without acute stroke or bleed. Less likely TIA or seizuregiven correlation with hypotension. She has features of ongoing aphasia and right hemiparesis but ac cording to family she has since recovered to her neurological baseline. Neuro-imaging: -- CTH with left deep oliveira calcifications, obscuring whether there is any acute bleed. -- CTA without LVO, but with venous anomaly in the left deep oliveira, with possible adjacent cavernoma. -- MRI showed no acute infarct and no convincing evidence of acute hemorrhage, with susceptibility artifact in bilateral BG and CBL favored to represent chronic mineralization or sequelae of prior hemorrhage (consistent with prior imaging reports of L BG/thalamic calcifications). Also with scattered chronic infarcts and severe white matter disease. Work up for provoking factors -- CXR (unremarkable), UA (neg), RPP (neg), BCx (in process), UDS (+ cannabinoids) -- rEEG to assess for possible epileptiform activity; post-ictal state is a possibility-->demonstrated no seizures, no epileptiform abnormalities , left hemisphere slowing, maximal over the left temporal region, and moderate generalized slowing. -- NSGY consulted, no recommendations felt developmental venous anomaly is chronic, signed off -- A1c (5.2), LDL (45), HDL (43), continue ASA (home medication) Plan: -- NC q4h -- BP goal: normotension -- NSGY follow-up for possible cavernoma/DVA, given that her deficits could correspond to a lesion in this location and she has clear residual deficits -- Would also benefit from neurology follow up to ensure her exam is tracked and followed and if any recurrence of similar episodes to the one leading to admission (in the absence of a provoking factor like hypotension etc) would reconsider seizure differential -- NPO until evaluated by ST given concerning coughing fits with eating #Concern for aspiration - [employer] consult # Spell of abnormal behavior Her son witnessed the possible seizure-like spell. She had a 1 second-long episode of a coughing fit, he thought she was choking, she leaned forward and he patted her on the back, she pushed her headback and she coughed and her eyes opened widely, she was looking through him but after 1 sec she said she was ok. He has never had concerns for seizures for her before. Had rEEG without epileptiform discharges or seizures. There is low concern for seizures based on this description but she may beat risk given her age and microvascular disease. - Monitor for possible seizures # Hypertensive microangiopathy # Chronic infarcts ( right occipital, bilateral thalamic, and bilateral cerebellar lacunar) -- continue ASA -- d/c statin (LDL 45), not a home medication -- PT/OT consult # Neuropathic pain Has chronic right arm pain that started after her stroke in 2019. -- home gabapentin 100 TID, suboptimal medication amidst her ESRD, consider a wean or a switch in the outpatient setting -- tylenol PRN # Hypovolemic hypotension, improved On arrival, BP 88/69 (up to 108/69 s/p 2L NS in ED). Received dialysis Sunday morning, unclear how much fluid was removed. Given additional 1L NS after arrival to NNICU -- discontinue mIVF, as eating and drinking fluids well -- hold home anti-hypertensive -- sepsis work up as above but no signs of septic shock # HTN -- holding home metoprolol-XL 25mg daily and lasix 20mg on non-dialysis days iso recent hypotension # QTc prolongation -- QTc 525 on ECG in ED -- avoid QT prolonging medications # Chronic Anemia in setting of ESRD Hgb 10.1. F/u outpatient -- transfuse for Hgb <7 # Implanted loop recorder According to family, placed in 2019 after her first stroke. # COPD, undiagnosed Not formally diagnosed. Former smoker (40 pack-year history). Recent ED admission 02/04 for SOB, improved with duonebs and prescribed a short course of PO prednisone. CT chest at the time demonstrated changes of centrilobular emphysema -- O2 for goal >88%, currently on RA -- PRN duonebs -- OOBTC as tolerated and IS -- would benefit from outpatient PFTs/pulmonology f/u # Posterior right 9th and 10th rib fractures Fell 02/03/24 and presented to OSH with chest pain. On CT chest (02/07/24) Found to have old healedbilateral rib fractures, interval healing of the previously noted acute right seventh rib fracture and acute nondisplaced fractures of the right ninth and tenth ribs posterolaterally -- APAP PRN -- supportive care # Oliguric ESRD on HD TTS -- consulted nephrology for HD (mari Valadez, 02/25) -- access: LUE AV fistula -- continue home Sevelamer 800 TID -- holding home lasix 20 mg on non-dialysis days due to concern for hypovolemia -- BMP daily # Hypocalcemia in setting of ESRD Ca 7.9, ICa 3.82. -- 2g Ca gluconate overnight -- check ical in am -- consider Vit D and PO supplementation # Sepsis workup -- Arrived hypotensive, very responsive to fluids. No other signs of infection, infectious work up negative thus far -- CBC daily, patient remains afebrile Code: Full Code Diet: Adult Diet Restricted; Mechanical Soft DVT: sqh Dispo: PT Recommendation/Plan: Inpatient Rehab Facility OT Recommendation: Inpatient Rehab Facility / Cj Palacios MD, PhD Neurology Cosigned by Angle La MD PhD at 02/26/2024 6:08 AM MOTION GRAPHICS DESIGNER ON GRAPHICS DESIGNER ON GRAPHICS DESIGNER Associated attestation - Angle La MD PhD - 02/26/2024 6:08 AM MOTION GRAPHICS DESIGNER I have seen and examined the patient on 02/25/2024. I have made edits and additions to the resident/fellow's note and agree with the plan of care as documented. My total time spent on patient care activities on 02/25/2024 was 45 minutes. This includes time spent prior to the encounter and after the encounter in direct care of the patient. This time does not include time spent in any separately reportable services. * Cj Palacios MD - 02/24/2024 7:34 PM CST General Neurology Progress Note Name: Trisha aWite Today: February 24, 2024 : 1950 Age: 73 y.o. female Admit: 02/23/2024 Bed: [id number] Subjective Trisha Waite is a 73 y.o. woman with past medical history of ESRD on HD TTS, HTN, undiagnosed COPD, prior left BG/thalamus calcifications discovered in 2019 after stroke presentation (with residual RSW) who presented with hyperacute onset right sided weakness, right facial droop, and dysarthria. At baseline, she has mild right sided weakness in her upper and lower extremities. She lives with her son and ambulates with a walker, but requires assistance with dressing and bathing, and other IADLs. Patient had dialysis in the AM, after which she felt 'wiped out', which is usual for her. LKN 16:35. At that time, she was taking her medications when she suddenly tensed up, back stiffened and neck extended. Her son notes that her eyes were wide but she did not have a gaze deviation. He then noticed that her right side was weak, as she was unable to lift it when asked. Possibly also slurred speech but hard to assess precisely since patient has poor dentition. She was taken to [facility] ED via helicopter and evaluated as a code stroke. On arrival, BP 88/69 (up to 108/69 s/p 1L NS), HR 66. BG 105. NIHSS 11 (1 question, 1 face, 3 RUE, 3 RLE, 1 LLE, 1 sensory, 1 dysarthria). Exam notable for dysarthria without aphasia, right hemiparesis (improved to about 4/5 on re- examination), slight right sided sensory loss. CTH with left deep oliveira calcifications, obscuring [...] chronic infarcts and severe white matter disease. Other workup in ED notable for: CMP with Na 140, K 3.5, Cr 3.65, Ca 7.5. CBC with Hgb 9.7, Plt 180.INR 1.0, aPTT 24. ECG with NSR, QTc 525. Trop 6. CXR with loop recorder, scarring in RML and RL base. For her prior stroke in 2019, from her son: she developed acute onset right facial weakness, followed by right sided weakness a few minutes later. At that time, they discovered the calcifications in her L BG/thalamus. Hospital Course: 02/23/2024 [facility]. BP 99/62. NIHSS on arrival was 4 (RLE 1, sensory 1, dysarthria 1, extinction 1). She was given an additional 1L NS bolus, started on mIVF. RVP negative, blood cultures in progress, UA noninfectious. rEEG obtained, demonstrated no seizures, no epileptiform abnormalities , left hemisphere slowing, maximal over the left temporal region, and moderate generalized slowing. 02/24/2024 hemodynamically stable, continued home ASA, discontinued atorvastatin as LDL 45 and was not on prior therapy. Interval history: Upon transfer, she feels well and has no complaints. She thinks her strength is back to her baseline. She thinks her current dysarthria without dentures is similar to her normal speech without dentures. She does still have some word finding difficulties that she says are improving Objective Medications: Scheduled: aspirin, 81 mg, oral, Daily gabapentin, 100 mg, oral, TID heparin, 5,000 Units, subcutaneous, Q8H VARGHESE senna, 1 tablet, oral, BID sevelamer, 800 mg, oral, TID with meals sodium chloride 0.9%, 0.5-20 mL, intra-catheter, Q8H VARGHESE (ALT) Infusions: PRN: acetaminophen Saline lock IV AND sodium chloride 0.9% AND sodium chloride 0.9% AND sodium chloride 0.9% ipratropium-albuteroL Vitals: 24hr Min/Max: Temp Min: 36.5 ??C (97.7 ??F) Max: 37.2 ??C (98.9 ??F) Pulse Min: 49 Max: 81 BP Min: 98/68 Max: 139/81 Resp Min: 10 Max: 22 SpO2 Min: 90 % Max: 100 % Most Recent: Vitals: 02/24/24 1800 BP: 121/79 Pulse: 76 Resp: 21 Temp: SpO2: Intake/Output Summary (Last 24 hours) at 02/24/20241955 Last data filed at 02/24/2024 1200 Gross per 24 hour Intake 740 ml Output 125 ml Net 615 ml Physical exam: GENERAL: appears stated age, sitting up comfortably in bed HEENT: NC/AT, MMM CV: regular rate and rhythm LUNGS: no increased work of breathing ABDOMEN: soft, nontender, nondistended EXTREMITIES: warm and well-perfused SKIN: warm and dry Mental Status Awake, alert, eyes open spontaneously, regards, good attention span, speech fluent but has mild dysarthria without dentures, follows simple commands but not cross-body commands, oriented to person, place (hospital but not [place]) and time (year with choices). Trouble naming some objects (e.g. a phone), repetition intact. Calculation intact. Abstract reasoning intact. Cranial Nerves PERRL, EOMI, Face symmetric, facial sensation intact. normal tongue protrusion Motor Right Left UPPER EXTREMITY Shoulder Abduction (C5, Axillary n., Deltoid) 4+ 5 Elbow Flexion (C5/6, MC +Radial n., Biceps/ Brachioradialis) 4+ 5 Elbow Extension (C7, Radial n., Triceps) 4+ 5 Wrist Extension (C6, Radial n., Extensor carpi radialis) 4+ 5 LOWER EXTREMITY Hip Flexion (L1/2, Iliopsoas) 3 4 Knee Extension (L3/4, Femoral n., Quadriceps) 5- 5 Knee Flexion (S1, Sciatic n., Hamstrings) 5- 5 Ankle Dorsiflexion (L4 < L5, Deep peroneal, Tibialis anterior) 4 5 Ankle Plantar Flexion (S1/S2, Tibial n., Gastroc/Soleus) 5 5 Sensory: Intact to light touch throughout. Lab/Diagnostic Review: I have reviewed the laboratory results. Pertinent updates in the subjective and assessment and plansections. Assessment/Plan Trisha Waite is a 73 y.o. woman with past medical history of ESRD on HD TTS, HTN, undiagnosed COPD, prior left BG/thalamus calcifications discovered in 2019 after stroke presentation (with residual RSW) who presented with hyperacute onset right sided weakness, right facial droop, and dysarthria. 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 BP and symptoms improved after bolus of IVF. Likely has flow-dependent lesion, possibly related to her venous anomaly. Initial NIHSS 11, follwed by NIHSS 4 after fluids (consistent with baseline deficits). Imaging without acute stroke or bleed. Less likely TIA or seizure given correlation with hypotension. Neuro-imaging: -- CTH with left deep oliveira calcifications, obscuring whether there is any acute bleed. -- CTA without LVO, but with venous anomaly in the left deep oliveira, with possible adjacent cavernoma. -- MRI showed no acute infarct and no convincing evidence of acute hemorrhage, with susceptibility artifact in bilateral BG and CBL favored to represent chronic mineralization or sequelae of prior hemorrhage (consistent with prior imaging reports of L BG/thalamic calcifications). Also with scattered chronic infarcts and severe white matter disease. Work up for provoking factors -- CXR (unremarkable), UA (neg), RPP (neg), BCx (in process), UDS (+ cannabinoids) -- rEEG to assess for possible epileptiform activity; post-ictal state is a possibility-->demonstrated no seizures, no epileptiform abnormalities , left hemisphere slowing, maximal over the left temporal region, and moderate generalized slowing. -- NSGY consulted, no recommendations felt developmental venous anomaly is chronic, signed off -- A1c (5.2), LDL (45), HDL (43), continue ASA (home medication) Plan: -- NC q4h -- BP goal: normotension # Hypertensive microangiopathy # Chronic infarcts ( right occipital, bilateral thalamic, and bilateral cerebellar lacunar) -- continue ASA -- d/c statin (LDL 45), not a home medication -- PT/OT consult # Neuropathic pain Has chronic right arm pain that started after her stroke in 2019. -- home gabapentin 100 TID -- tylenol PRN # Hypovolemic hypotension, improved On arrival, BP 88/69 (up to 108/69 s/p 2L NS in ED). Received dialysis Sunday morning, unclear how much fluid was removed. Given additional 1L NS after arrival to NNICU -- discontinue mIVF, as eating and drinking fluids well -- hold home anti-hypertensive -- sepsis work up as above but no signs of septic shock # HTN -- holding home metoprolol-XL 25mg daily and lasix 20mg on non-dialysis days iso recent hypotension # QTc prolongation -- QTc 525 on ECG in ED -- avoid QT prolonging medications -- repeat ECG # Chronic Anemia in setting of ESRD Hgb 10.1. F/u outpatient -- transfuse for Hgb <7 # Implanted loop recorder According to family, placed in 2019 after her first stroke. # COPD, undiagnosed Not formally diagnosed. Former smoker (40 pack-year history). Recent ED admission 02/04 for SOB, improved with duonebs and prescribed a short course of PO prednisone. CT chest at the time demonstrated changes of centrilobular emphysema -- O2 for goal >88%, currently on RA -- PRN duonebs -- OOBTC as tolerated and IS -- would benefit from outpatient PFTs/pulmonology f/u # Posterior right 9th and 10th rib fractures Fell 02/03/24 and presented to OSH with chest pain. On CT chest (02/07/24) Found to have old healedbilateral rib fractures, interval healing of the previously noted acute right seventh rib fracture and acute nondisplaced fractures of the right ninth and tenth ribs posterolaterally -- APAP PRN -- supportive care # Oliguric ESRD on HD TTS -- consult nephrology in AM for HD (due Niraj, 02/25) -- access: LUE AV fistula -- continue home Sevelamer 800 TID -- hold home lasix 20 mg on non-dialysis days due to concern for hypovolemia -- BMP daily # Hypocalcemia in setting of ESRD Ca 7.9, ICa 3.82. -- 2g Ca gluconate overnight -- check ical in am -- consider Vit D and PO supplementation # Sepsis workup -- Arrived hypotensive, very responsive to fluids. No other signs of infection, infectious work up negative thus far -- CBC daily, patient remains afebrile Code: Full Code Diet: Adult Diet Restricted; Mechanical Soft DVT: sqh Dispo: PT Recommendation/Plan: Inpatient Rehab Facility OT Recommendation: Inpatient Rehab Facility / Cj Palacios MD, PhD Neurology Cosigned by Angle La MD PhD at 02/27/2024 9:02 PM MOTION GRAPHICS DESIGNER ON GRAPHICS DESIGNER ON GRAPHICS DESIGNER ON GRAPHICS DESIGNER Associated attestation - Angle La MD PhD - 02/27/2024 9:02 PM MOTION GRAPHICS DESIGNER I have seen and examined the patient on 02/25/2024. I have made edits and additions to the resident/fellow's note and agree with the plan of care as documented. My total time spent on patient care activities on 02/25/2024 was 45 minutes. This includes time spent prior to the encounter and after the encounter in direct care of the patient. This time does not include time spent in any separately reportable services. * Jody Mcgrath, OT - 02/24/2024 1:17 PM CST Occupational Therapy Evaluation Note NOTE: This is a summary note of the dominguez components of the evaluation session. For full details, review chart for all flowsheets documented on by this occupational therapy clinician on this date. Vital signs are documented in vital signs flowsheet. For questions, please review the treatment team and contact the occupational therapist currently assigned to this patient. If an occupational therapist is not assigned to this patient, please call [phone]. 02/24/24 1317 General Chart Reviewed Yes Session Type Evaluation OT Received On 02/24/24 Safe Environment Arm band checked;Patient found sitting in chair;Gait belt utilized for all out of bed mobility Subjective Agreeable to Therapy Family/Caregiver Present Yes (son) Occupational Therapy-Patient Goal pt did not specify goal but agreed with suggested goals presented Precautions Precautions Fall risk Home Living Type of Home House Home Layout One level Bathroom Shower/Tub Tub/shower unit Bathroom Equipment Tub transfer bench Home Mobility Equipment-Available Wheeled walker;Scooter Home Mobility Equipment-Currently Using (uses walker most of the time in the home; in community, sometimes uses scooter instead) Prior Function Level of [place] Needs assistance with functional transfers;Needs assistance with homemaking;Independent with ADLs Lives With Son Receives Help From Family (son) Driving No Fall within the last 6 months Yes Fall within the last 6 months comment fall resulting from rolling off her bed at home Grooming Grooming: Where assessed Chair Grooming: Level of assistance Maximum Assist (minimal assist in sitting) LE Dressing LE Dressing: Where assessed Chair LE Dressing: Level of assistance Moderate Assist Pain Assessment Pain Assessment No/denies pain Vision-Basic Assessment Current Vision Other (Comment) (usually wears glasses but recently they were lost) Cognition Arousal/Alertness Alert;Appropriate responses to stimuli Orientation Oriented to person;Oriented to place;Able to orient when provided with multiple choice options (stated correct general time; chose correct month from 2 options.) Following Commands Follows one step commands without difficulty Compliance/Behavior Easy to engage Short Blessed Test What year is it now? 4 What month is it now? 3 Repeat this name and address after me Sj Chadwick [address] [place] [address] Without looking at the clock, tell me what time it is 0 Count aloud backwards from 20-1 4 Say the months of the year backwards in reverse order 4 Repeat the name and address I asked you to remember 10 Short Blessed Total Score 25 [place] Cancellation Test [place] Unable to complete standardized testing (glasses not here) Trails A & B ([place] Making Test) Unable to complete Trails A due to Does not have glasses Unable to complete Trails B due to Does not have glasses Unable to complete Trails B Verbal due to Cognition Sensation Light Touch WFL (BUE) Coordination Fine Motor (pt with some diffiiculty manipulating items in R hand; per pt. and son, pt. has had some difficulty using R hand since previous stroke.) Serial Opposition Fair Tinetti Sitting Balance 1 Arises 0 Attempts to Arise 0 Immediate Standing Balance (First 5 Seconds) 0 Standing Balance 0 Nudged 0 Eyes Closed 0 Turned 360 Degrees: Steadiness 0 Turned 360 Degrees: Continuity of Steps 0 Sitting Down 1 Balance Score 2 Transfer 1 Transfer From 1 Sit Transfer Type 1 To and from Transfer to 1 Stand Transfer Level of Assistance 1 Minimum Assist RUE Assessment RUE Assessment (AROM grossly WFL; strength grossly 4/5) LUE Assessment LUE Assessment (AROM grossly WFL; strength grossly 4+/5) Daily Activity - 6 Clicks Putting on and taking off regular lower body clothing 2 Bathing 2 Toileting 2 Putting on and taking off upper body clothing 3 Personal Grooming 2 Eating Meals 3 Total Score (range 6-24) 14 Score Interpretation 33.39 Safe Environment End of Therapy Session Safe Environment End of Therapy Session Patient left in recliner;Chair alarm in place and activated;Call light within reach;Overbed table within reach Assessment Problem List Decreased upper extremity strength;Decreased cognition;Decreased endurance;Decreased balance;Decreased fine motor control;Decreased functional mobility;Decreased gross motor control;Decreased ADL independence;Decreased IADL independence Plan Plan If this is the last note, consider this the discharge summary Recommendation/Plan OT Recommendation Inpatient Rehab Facility Patient at high risk for Falls;Readmission;Injury due to decreased ability to care for self;Injury due to reduced functional status;Injury due to impaired cognition;Injury due to balance deficits;Injury at home as patient has not returned to prior level of function Recommend Inpatient Rehab/Acute Rehab due to Not at baseline due to impaired ability to complete ADLs;Impaired ability to complete functional mobility;Likely to return to the community at discharge with support system in place;Requires skilled therapy interventions to address neurological deficits;Requires multiple therapy disciplines to address functional deficits OT Frequency during current admission 5-7x/wk Treatment/Interventions during current admission ADL/IADL retraining;Balance Training;Cognitive retraining;Compensatory technique education;Functional activity;Functional mobility training;Functionaltransfer training;Therapeutic exercise;Therapeutic activity OT - Next Appointment 02/25/24 OT Evaluation Complete Yes OT Time Calculation OT Start Time 1317 OT Stop Time 1343 OT Time Calculation (min) 26 min Multi-Disciplinary Problems (from Occupational Therapy) Active Problems Problem: Dressings Lower Extremities Start Date: 02/24/24 Goal Start Date Expected End Date End Date STG - Patient to complete lower body dressing with minimal assist 02/24/24 03/09/24 -- Problem: Grooming Start Date: 02/24/24 Goal Start Date Expected End Date End Date STG - Patient will complete grooming in standing with supervision 02/24/24 03/09/24 -- Problem: Transfers Start Date: 02/24/24 Goal Start Date Expected End Date End Date STG - Patient will perform toilet transfer with minimal assist 02/24/24 03/09/24 -- Problem: OT Misc Start Date: 02/24/24 Goal Start Date Expected End Date End Date OT LTG - Pt to complete self care with modified independence. 02/24/24 04/09/24 -- ON GRAPHICS DESIGNER * Carolina Oakley, PT - 02/24/2024 9:10 AM CST Physical Therapy Physical Therapy Evaluation Note NOTE: This is a summary note of the dominguez components of the evaluation session. For full details, review chart for all flowsheets documented on by this physical therapy clinician on this date. Vital signs are documented in the vital signs flowsheet. For questions, please review the treatment team and contact the PT or RETAIL MANAGER IN TRAINING currently assigned to this patient. If a physical therapy clinician is not assigned to this patient, please call [phone]. 02/24/24 0910 General Chart Reviewed Yes Session Type Evaluation PT Received On 02/24/24 Safe Environment Arm band checked;Session completed bedside;Gait belt utilized for all out of bed mobility;Patient found in supine Subjective Agreeable to Therapy Family/Caregiver Present No Physical Therapy-Patient Goal Pt wants to be able to walk on her own and go home. 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 Sitting to Standing 1 2. Standing Unsupported 0 3. Sitting with Back Unsupported but Feet Supported on Floor or on a Stool 3 4. Standing to Sitting 0 5. Transfers 1 6. Standing Unsupported with Eyes Closed 0 7. Standing Unsupported with Feet Together 0 8. Reach Forward with Outstretched Arm While Standing 0 9. Pooling Operator Object from Floor from a Standing Position 0 10. Turning to Look Behind Over Left and Right Shoulders While Standing 0 11. Turn [address] Foot on Step or Stool While Standing Unsupported 0 13. Standing Unsupported One Foot in Front 0 14. Standing on One Leg 0 Nicholson Balance Score 5 Balance Balance Yes Static Sitting Balance Static Sitting-Balance Support Feet supported;Bilateral upper extremity supported Static Sitting-Sitting Surface Bed Static Sitting-Level of Assistance Close supervision Static Standing Balance Static Standing-Balance Support Bilateral upper extremity supported Static Standing-Standing Surface Floor Static Standing-Level of Assistance Minimum assistance Bed Mobility Bed Mobility Yes Bed Mobility 1 Bed Mobility From 1 Supine Bed Mobility Type 1 To Bed Mobility to 1 Edge of bed Level of Assistance 1 Minimum Assist Bed Mobility Comments 1 assist with elevation of trunk Transfers Transfer Yes Transfer 1 Transfer From 1 Sit Transfer Type 1 To and from Transfer to 1 Stand Technique 1 Sit to stand;Stand to sit Transfer Device 1 Hand held assist (x2) Transfer Level of Assistance 1 Minimum Assist Trials/Comments 1 decreased force production, decreased balance Transfers 2 Transfer From 2 Bed Transfer Type 2 To Transfer to 2 Chair with arms Technique 2 Stand and step Transfer Device 2 Hand held assist (x2) Transfer Level of Assistance 2 Minimum Assist Trials/Comments 2 decreased force production, decreased balance Ambulation Ambulation Yes Ambulation 1 Distance (ft) 1 18 Surface 1 Level tile Device 1 Hand held assist (x2) Assistance 1 Minimum Assist Gait: Requires assist with 1 Weight shifting;Maintaining balance Gait: Requires verbal cues to 1 Increase step length;Pace activity;Utilize appropriate gait sequencing Gait Deviations 1 [place] - decreased;Step length - decreased;Turns - difficulty;Weight shift - decreased Ambulation Comments 1 Gait speed not performed due to distance ambulated Stairs Stairs No RUE Assessment RUE Assessment WFL LUE Assessment LUE Assessment WFL RLE Assessment RLE Assessment WFL RLE Comments 4/5 throughout LLE Assessment LLE Assessment WFL Basic Mobility - 6 Click How much difficulty does the patient have: Turning over in bed 3 How much difficulty does the patient currently have: Sitting down and standing up from a chair witharms? 3 How much difficulty does the patient have: Moving from lying on back to sitting on the side of the bed? 3 How much difficulty does the patient have: Moving to and from a bed to a chair including wheelchair? 3 How much help does the patient currently need: Walk in hospital room? 3 How much help from another person does the patient currently need: Climbing 3-5 steps with a railing? 2 Total 6 Click Score (range 6-24) 17 Score Interpretation 39.67 Safe Environment End of Therapy Session Safe Environment End of Therapy Session Call light within reach;Patient left in chair;Chair alarm in place and activated Assessment Problem List Reduced mobility;Gait deviations;Decreased strength;Decreased range of motion;Decreased endurance;Impaired balance Problem List Comments PT Diagnosis: hyperacute onset right sided weakness, right facial droop, and dysarthria results in above listed activity deficits and impairments which prevent full participation in home and community mobility Plan Plan If this is the last note, consider this the discharge summary;Plan of care initiated Recommendation/Plan PT Recommendation/Plan Inpatient Rehab Facility Patient at high risk for Falls;Injury due to reduced functional status;Injury due to balance deficits Recommend Inpatient Rehab/Acute Rehab due to Ability to actively participate in intensive therapy 3hours/day, 5 days/week or 900 minutes per week;Impaired ability to complete functional mobility;Requires greater than 25% physical assistance with most mobility tasks;Requires multiple therapy disciplines to address functional deficits;Requires skilled therapy interventions to address neurological deficits PT Frequency during current admission 5-7x/wk Treatment/Interventions during current admission Balance Training;Bed mobility;Functional activity;Functional transfer training;Gait training;Neuromuscular re-education;Strengthening;Therapeutic activ ity;Therapeutic exercise PT - Next Appointment 02/25/24 PT Evaluation Complete Yes PT Time Calculation PT Start Time 09 PT Stop Time 0933 PT Time Calculation (min) 23 min Multi-Disciplinary Problems (from Physical Therapy) Active Problems Problem: Mobility Start Date: 02/24/24 Goal Start Date Expected End Date End Date LTG - Patient will ambulate household distance with sup 02/24/24 03/26/24 -- Goal Start Date Expected End Date End Date STG - Patient will ambulate 100ft with LRD with sup 02/24/24 03/05/24 -- Goal Start Date Expected End Date End Date STG - Patient will ascend and descend six stairs with HR with sup 02/24/24 03/05/24 -- Problem: Transfers Start Date: 02/24/24 Goal Start Date Expected End Date End Date STG - Patient to transfer to and from sit to supine with sup 02/24/24 03/05/24 -- Goal Start Date Expected End Date End Date STG - Patient will transfer sit to and from stand with sup 02/24/24 03/05/24 -- ON GRAPHICS DESIGNER * Fortunato Maldonado MD PhD - 02/24/2024 6:24 AM CST Neuro Critical Care Progress Note Dx: right-sided weakness HPI: 73F ESRD on HD TTS, HTN, undiagnosed COPD, prior left BG/thalamus calcifications discovered [id number] after stroke presentation (with residual R HPS) p/w acute R HPS and dysarthria. LKN 16:35 02/22. Suddenly tensed up, back stiffened and neck extended (?Sz)-->inc R HPS. Taken to [facility] ED via helicopter. On arrival, BP 88/69 (up to 108/69 s/p 1L NS), HR 66. NIHSS 11. Sx improved after IVF. CTH with ?L cavernoma. MRI no acute infarct. Interval Events: Admitted to NNICU feeling in her usual state of health. BP 99/62. NIHSS on arrival was 4 (RLE 1, sensory 1, dysarthria 1, extinction 1). She was given an additional 1L NS bolus, started on mIVF. RVP negative, blood cultures in progress, UA noninfectious. rEEG obtained, pending formal read. This morning patient denies pain, dizziness, SOB, vision changes. She states her speech is clearer when she wears her dentures, but she does feel like she is having trouble finding her words. Vitals Temp Min: 36.2 ??C (97.1 ??F) Max: 36.7 ??C (98.1 ??F) Pulse Min: 49 Max: 88 NIBP BP Min: 88/69 Max: 134/73 MAP (mmHg) Av.4 Min: 66 Max: 107 A-line No data recorded I/O: Intake/Output Summary (Last 24 hours) at 02/24/2024 0624 Last data filed at 02/24/2024 0200 Gross per 24 hour Intake 500 ml Output 125 ml Net 375 ml UOP: 125ml since admission (ESRD on iHD) LABS Recent Labs Lab Units 02/23/24212202/23/24201902/23/24 1840 SODIUM mmol/L 139 -- 140 POTASSIUM PLASMA mmol/L 4.1 -- 3.5 CHLORIDE mmol/L 102 -- 103 CO2 mmol/L 28 -- 27 ANIONGAP mmol/L 9 -- 10 GLUCOSE mg/dL 86 -- 93 POC GLUCOSE MONITOR mg/dL -- 93 -- BUN SERUM mg/dL 18 -- 16 CREATININE mg/dL 4.00* -- 3.65* CALCIUM mg/dL 7.9* -- 7.5* MAGNESIUM mg/dL 2.1 -- 2.0 PHOSPHORUS PLASMA mg/dL 4.4 -- -- Recent Labs Lab Units 02/23/24212202/23/24183902/23/24 1822 WBC K/cumm 8.5 8.9 -- HEMATOCRIT % 31.5* 30.5* -- HEMOGLOBIN g/dL 10.1* 9.7* -- PLATELETS K/cumm 202 180 -- APTT sec 25* 24* -- INR 1.00 -- 1.0 Recent Labs Lab Units 02/23/24212202/23/240 ALK PHOS Units/L 62 53 BILIRUBIN TOTAL mg/dL 0.3 0.2 TOTAL PROTEIN g/dL 5.7* 5.1* ALBUMIN g/dL 3.1* 2.9* ALT Units/L 5* <5* AST Units/L 15 12 IMAGING (Most recent) NEURO IMAGING: CTH with left deep oliveira calcifications, obscuring [...] BG/thalamic calcifications). Also with scattered chronic infarcts andsevere white matter disease. PHYSICAL EXAM: General: No acute distress HEENT: Mucous membranes dry, sclera anicteric Cardiac: Normal rate and regular rhythm on monitor, no M/R/G Pulmonary: Even, unlabored respirations. Symmetric chest rise and fall. Lung sounds scattered rhonchi. Abdomen: Non-distended in appearance, bowel sounds present, soft and non-tender to palpation Ext: No peripheral edema or digital cyanosis Skin: No rashes or lesions NEURO EXAM Mental Status Eyes open to voice, regards, good attention span, speech fluent, follows commands, oriented to person, place (hospital) and time (month with choices but not year). Trouble naming mod/low frequency objects, repetition intact Cranial Nerves PERRL, EOMI, VFFTC, Face symmetric, dysarthria (edentulous), normal tongue protrusion Motor LUE 5/5. RUE 4-/5. LLE 4/5 HF, otherwise 5/5. RLE 3/5 HF, otherwise 4+/5. Sensory: Intact to light touch throughout. No extinction to double stimulation. 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 BP and symptoms improved after bolus of IVF. Likely has flow-dependent lesion, possibly related to her venous anomaly. Initial NIHSS 11, follwed by NIHSS 4 after fluids (consistent with baseline deficits. Imaging without acute stroke or bleed. Less likely TIA orseizure given correlation with hypotension. Neuro-imaging: -CTH with left deep oliveira calcifications, obscuring whether there is any acute bleed. -CTA without LVO, but with venous anomaly in the left deep oliveira, with possible adjacent cavernoma. -MRI showed no acute infarct and no convincing evidence of acute hemorrhage, with susceptibility artifact in bilateral BG and CBL favored to represent chronic mineralization or sequelae of prior hemorrhage (consistent with prior imaging reports of L BG/thalamic calcifications). Also with scattered chronic infarcts and severe white matter disease. - additional work up for provoking factors: CXR (unremarkable), UA (neg), RPP (neg), BCx (in process), UDS (+ cannabinoids) - rEEG to assess for possible epileptiform activity; post-ictal state is a possibility - NSGY consulted, no recommendations felt developmental venous anomaly is chronic, signed off - A1c (5.2), LDL (45), HDL (43), TTE (pending) - secondary prevention: ASA 81 mg, atorvastatin 80 mg - SMART consult - q1h NCs --> q4 - BP goal: normotension - check orthostatics # Hypertensive microangiopathy # Chronic infarcts ( right occipital, bilateral thalamic, and bilateral cerebellar lacunar) - cont ASA - d/c statin (LDL 45) # Neuropathic pain Has chronic right arm pain that started after her stroke in 2019. - home gabapentin 100 TID - tylenol PRN CARDIOVASCULAR and HEME Meds: ASA 81 Atorvastatin 80 Labetalol / hydralazine PRN for SBP <185 EKG: NSR with prolonged QTc 525 # Hypovolemic hypotension On arrival, BP 88/69 (up to 108/69 s/p 2L NS in ED). Got dialysis this Sunday morning, unclear how much fluid was removed. 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 F/u outpatient -transfuse for Hgb <7 # Implanted loop recorder According to family, placed in 2019 after her first stroke. PULMONARY Resp Min: 10 Max: 20 SpO2 Min: 90 % Max: 100 % CXR: no acute abnormalities Secretions: none Meds: Duoneb q6h PRN # COPD -Not formally diagnosed. Former smoker (40 pack-year history). Recent ED admission 02/04 for SOB, improved with duonebs and prescribed a short course of PO prednisone. Patient arrived on unit on 2L NC O2. - wean O2 as able; goal >88% - PRN duonebs - OOBTC as tolerated and IS # Posterior rib fracture Fell 02/02 and presented to OSH with chest pain. Found to have non-displaced posterior rib fractures on subsequent CT-chest 02/04. - APAP PRN - supportive care RENAL Meds: Sevelamer 800 TID # oliguric ESRD on HD TTS - consult nephrology in AM for HD (due , 02/25) - Sevelamer 800 TID - hold home lasix 20 mg on non-dialysis days due to concern for hypovolemia - BMP daily # Hypocalcemia in setting of ESRD Ca 7.9, ICa 3.82. -2g Ca gluconate now -consider Vit D and PO supplementation in AM GI and ENDO Meds: Colace BID Senna BID Diet: Adult Diet Restricted; Mechanical Soft IV fluids: NS @ 75 /hr Flushes: n/a Last BM: n/a # Nutrition - Mechanical soft (edentulous) - Bowel regimen: Colace and Senna BID INFECTION RELEVANT/MOST RECENT MICRO LAB DATA: Blood cultures: pending Respiratory cultures: RPP pending Urinalysis/Urine culture: pending Meds: none # Sepsis workup - Arrived hypotensive, very responsive to fluids. No other signs of infection, but will complete infectious work up negative thus far - CBC daily ACCESS Lines Lines/Tubes: Peripheral IV 02/23/24 20 G Right;Lateral Antecubital (Active) Number of days: 0 Single Lumen Implantable Port 01/17/23 Chest Left (Active) Number of days: 402 Hemodialysis Cath Double Left Chest (Active) Number of days: VTE Prophylaxis Last Venous Doppler: n/a Prophylaxis: SCDs, Heparin CODE STATUS: Full Code Disposition: [facility] BRANDON Leon MD PhD ON GRAPHICS DESIGNER ON GRAPHICS DESIGNER ON GRAPHICS DESIGNER documented in this encounter H&P Notes * Parker Pulido MD - 02/23/2024 9:14 PM CST Neuro Critical Care Admission H&P CC: right-sided weakness HPI: Trisha Waite is a 73 y.o. female with past medical history of ESRD on HD TTS, HTN, undiagnosedCOPD, prior left BG/thalamus calcifications discovered in 2019 after stroke presentation (with residual RSW) who presented with hyperacute onset right sided weakness, right facial droop, and dysarthria. At baseline, she has mild right sided weakness in her upper and lower extremities. She lives with her son and ambulates with a walker, but requires assistance with dressing and bathing, and other IADLs. Patient had dialysis this morning, after which she felt 'wiped out', which is usual for her. LKN 16:35. At that time, she was taking her medications when she suddenly tensed up, back stiffened and neck extended. Her son notes that her eyes were wide but she did not have a gaze deviation. He then noticed that her right side was weak, as she was unable to lift it when asked. Possibly also slurred speech but hard to assess precisely since patient has poor dentition. She was taken to [facility] ED via helicopter. She was code stroke here. On arrival, BP 88/69 (up to 108/69 s/p 1L NS), HR 66. BG 105. NIHSS 11 (1 question, 1 face, 3 RUE, 3 RLE, 1 LLE, 1 sensory, 1 dysarthria). Exam notable for dysarthria without aphasia, right hemiparesis (improved to about 4/5 on re- examination), slight right sided numbness. CTH with left deep oliveira ca lcifications, obscuring whether there is any acute bleed. [...] chronic infarcts and severe white matter disease. Other workup in ED notable for: CMP with Na 140, K 3.5, Cr 3.65, Ca 7.5. CBC with Hgb 9.7, Plt 180.INR 1.0, aPTT 24. ECG with NSR, QTc 525. Trop 6. CXR with loop recorder, scarring in RML and RL base. For her prior stroke in 2019, from her son: she developed acute onset right facial weakness, followed by right sided weakness a few minutes later. At that time, they discovered the calcifications in her L BG/thalamus. Interval Events: She arrived to NNICU feeling in her usual state of health. BP 99/62. Her NIHSS on arrival was 4 (RLE 1, sensory 1, dysarthria 1, extinction 1). She was given an additional 1L NS bolus. Home meds: Metoprolol-ER 25 mg daily Lasix 20 mg on non-dialysis days Gabapentin 100 mg TID (post-stroke neuropathic pain) Sevelamer 800 TID Past Medical History: Diagnosis Date CHF (congestive heart failure) ([facility]) ([facility]) CKD (chronic kidney disease), stage IV ([facility]) ([facility]) COPD (chronic obstructive pulmonary disease) ([facility]) Depression Hemiplegia and hemiparesis following cerebral infarction affecting right dominant side ([facility]) HLD (hyperlipidemia) Hypertension Memory deficit following other cerebrovascular disease Metabolic encephalopathy Osteoarthritis Polyneuropathy Stroke ([facility]) Past Surgical History: Procedure Laterality Date JOINT REPLACEMENT SHOULDER SURGERY Right TOTAL HIP ARTHROPLASTY Bilateral Social History Tobacco Use Smoking status: Former Types: Cigarettes Smokeless tobacco: None Substance and Sexual Activity Drug use: None Sexual activity: None Alcohol Use: Not At Risk (12/20/2022) Received from [facility], [facility] AUDIT-C Frequency of Alcohol Consumption: Never Average Number of Drinks: Patient does not drink Frequency of Binge Drinking: Never No family history on file. No Known Allergies Medications Prior to Admission Medication Sig Dispense Refill Last Dose/Taking amLODIPine (NORVASC) 5 mg tablet Take 1 tablet (5 mg total) by mouth daily aspirin 81 mg enteric coated tablet Take 1 tablet (81 mg total) by mouth daily cholecalciferol (VITAMIN D-3) 5,000 unit tablet Take 1 tablet (5,000 Units total) by mouth daily furosemide (LASIX) 20 mg tablet Take 1 tablet (20 mg total) by mouth every other day gabapentin (NEURONTIN) 100 mg capsule Take 1 capsule (100 mg total) by mouth 3 (three) times a day HYDROcodone-acetaminophen (NORCO) 5-325 mg per tablet Take 1 tablet by mouth every 6 (six) hours asneeded for pain lidocaine (LIDODERM) 5 % Place 1 patch on the skin daily Remove & discard patch within 12 hoursor as directed by . 7 patch 0 metoprolol XL (TOPROL-XL) 25 mg extended release tablet Take 1 tablet (25 mg total) by mouth daily omeprazole 20 mg tablet,delayed release (DR/EC) Take 1 tablet (20 mg total) by mouth daily Review of Systems: All other systems negative except as indicated in HPI. Vitals 24hr Temp Min: 36.2 ??C (97.1 ??F) Max: 36.5 ??C (97.7 ??F) Pulse Min: 66 Max: 88 NIBP BP Min: 88/69 Max: 108/69 MAP (mmHg) Av Min: 66 Max: 81 A-line No data recorded I/O:No intake or output data in the 24 hours ending 02/23/242113 LABS Recent Labs Lab Units 02/23/24201902/23/24 18402/23/24 1821 SODIUM mmol/L -- 140 -- POTASSIUM PLASMA mmol/L -- 3.5 -- CHLORIDE mmol/L -- 103 -- CO2 mmol/L -- 27 -- ANIONGAP mmol/L -- 10 -- GLUCOSE mg/dL -- 93 -- POC GLUCOSE MONITOR mg/dL 93 -- 105 BUN SERUM mg/dL -- 16 -- CREATININE mg/dL -- 3.65* -- CALCIUM mg/dL -- 7.5* -- MAGNESIUM mg/dL -- 2.0 -- Recent Labs Lab Units 02/23/24183902/23/24 182 WBC K/cumm 8.9 -- HEMATOCRIT % 30.5* -- HEMOGLOBIN g/dL 9.7* -- PLATELETS K/cumm 180 -- APTT sec 24* -- INR -- 1.0 Recent Labs Lab Units 02/23/241839 ALK PHOS Units/L 53 BILIRUBIN TOTAL mg/dL 0.2 TOTAL PROTEIN g/dL 5.1* ALBUMIN g/dL 2.9* ALT Units/L <5* AST Units/L 12 IMAGING (Most recent) NEURO IMAGING: CTH with left deep oliveira calcifications, obscuring [...] BG/thalamic calcifications). Also with scattered chronic infarcts andsevere white matter disease. PHYSICAL EXAM: General: No acute distress HEENT: Mucous membranes dry, sclera anicteric Cardiac: Normal rate and regular rhythm on monitor Pulmonary: Even, unlabored respirations. Symmetric chest rise and fall. Lung sounds coarse. Abdomen: Non-distended in appearance, bowel sounds present, soft and non-tender to palpation Ext: No peripheral edema or digital cyanosis Skin: No rashes or lesions NEURO EXAM Mental Status Eyes open to voice, regards, follows as, speech fluent, oriented to person, place and time (year, not month). Cranial Nerves PERRL, EOMI, VFFTC, Face symmetric, dysarthria (edentulous), normal tongue protrusion Motor LUE 5/5. RUE 4-/5. LLE 4/5 HF, otherwise 5/5. RLE 3/5 HF, otherwise 4+/5. Sensory: Intact to light touch throughout. No extinction to double stimulation. 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 BP and symptoms improved after bolus of IVF. Likely has flow-dependent lesion, possibly related to her venous anomaly. Initial NIHSS 11, follwed by NIHSS 4 after fluids (consistent with baseline deficits. Imaging without acute stroke or bleed. Less likely TIA orseizure given correlation with hypotension. Neuro-imaging: -CTH with left deep oliveira calcifications, obscuring whether there is any acute bleed. -CTA without LVO, but with venous anomaly in the left deep oliveira, with possible adjacent cavernoma. -MRI showed no acute infarct and no convincing evidence of acute hemorrhage, with susceptibility artifact in bilateral BG and CBL favored to represent chronic mineralization or sequelae of prior hemorrhage (consistent with prior imaging reports of L BG/thalamic calcifications). Also with scattered chronic infarcts and severe white matter disease. - additional work up for provoking factors: CXR (unremarkable), UA, RPP, BCx, UDS, - rEEG to assess for possible epileptiform activity, although favored to be less likely a seizure - NSGY consulted, f/u recommendations re: further imaging for possible cavernoma - A1c, LDL, TTE - secondary prevention: ASA 81 mg, atorvastatin 80 mg - SMART consult - q1h NCs --> space out tomorrow - BP goal: normotension # Hypertensive microangiopathy # Chronic infarcts ( right occipital, bilateral thalamic, and bilateral cerebellar lacunar) - ASA and statin as above # Neuropathic pain Has chronic right arm pain that started after her stroke in 2019. - home gabapentin 100 TID - tylenol PRN CARDIOVASCULAR and HEME Meds: ASA 81 Atorvastatin 80 Labetalol / hydralazine PRN for SBP <185 EKG: NSR with prolonged QTc 525 # Hypovolemic hypotension On arrival, BP 88/69 (up to 108/69 s/p 1L NS). Got dialysis this morning, unclear how much fluid was removed. Given additional 1L NS on the floor. - s/p 2 L NS - NS @ 75/hr - hold home anti-hypertensive - sepsis work up as above but no signs of septic shock # HTN -hold home metoprolol-XL 25 -hold home lasix 20 non-dialysis days # QTc prolongation -QTc 525 on ECG in ED -avoid QT prolonging medications #Anemia in setting of ESRD Hgb 10.1. F/u outpatient -transfuse for Hgb <7 # Implanted loop recorder According to family, placed in 2019 after her first stroke. PULMONARY Resp Min: 14 Max: 20 SpO2 Min: 90 % Max: 96 % CXR: no acute abnormalities Secretions: none Meds: Duoneb q6h PRN # COPD -Not formally diagnosed. Former smoker (40 pack-year history). Recent ED admission 02/04 for SOB, improved with duonebs and prescribed a short course of PO prednisone. Patient arrived on unit on 2L NC O2. - wean O2 as able - PRN duonebs - OOBTC as tolerated and IS # Posterior rib fracture Fell 02/02 and presented to OSH with chest pain. Found to have non-displaced posterior rib fractures on subsequent CT-chest 02/04. - APAP PRN - supportive care RENAL Meds: Sevelamer 800 TID # oliguric ESRD on HD TTS - consult nephrology in AM for HD (due , 02/25) - Sevelamer 800 TID - hold home lasix 20 mg on non-dialysis days due to concern for hypovolemia - BMP daily # Hypocalcemia in setting of ESRD Ca 7.9, ICa 3.82. -2g Ca gluconate now -consider Vit D and PO supplementation in AM GI and ENDO Meds: Colace BID Senna BID Diet: NPO Diet IV fluids: NS @ 75 /hr Flushes: n/a Last BM: n/a # Nutrition - Mechanical soft (edentulous) - Bowel regimen: Colace and Senna BID INFECTION RELEVANT/MOST RECENT MICRO LAB DATA: Blood cultures: pending Respiratory cultures: RPP pending Urinalysis/Urine culture: pending Meds: none # Sepsis workup - Arrived hypotensive, very responsive to fluids. No other signs of infection, but will complete infectious work up as above ACCESS Lines Lines/Tubes: Peripheral IV 02/23/24 20 G Right;Lateral Antecubital (Active) Number of days: 0 Single Lumen Implantable Port 01/17/23 Chest Left (Active) Number of days: 402 Hemodialysis Cath Double Left Chest (Active) Number of days: VTE Prophylaxis Last Venous Doppler: n/a Prophylaxis: SCDs, Heparin CODE STATUS: Full Code Disposition: NNICU Parker Pulido MD Cosigned by Fortunato Maldonado MD PhD at 03/06/2024 12:12 PM MOTION GRAPHICS DESIGNER ON GRAPHICS DESIGNER ON GRAPHICS DESIGNER ON GRAPHICS DESIGNER ON GRAPHICS DESIGNER documented in this encounter Procedure Notes * Chika Fish, MANAGER [employer] - 02/26/2024 9:59 AM CSTAssociated Order(s): MANAGER [employer] EVALUATE AND TREAT FIBEROPTIC ENDOSCOPIC SWALLOW Speech-Language Pathology: Flexible Endoscopic Evaluation of Swallowing (FEES) HPI/PMH HPI/PMH: 73 y.o. woman with past medical history of ESRD on HD TTS, HTN, undiagnosed COPD, prior left BG/thalamic calcifications/hemorrhage discovered in 2019 after stroke presentation (with residualRSW) who presented with hyperacute onset right sided weakness, right facial droop, and dysarthria. CTH with left deep oliveira calcifications, obscuring [...] BG/thalamic calcifications). Also with scattered chronic infarcts andsevere white matter disease. Respiratory/Intubation Status: currently on room air Imaging:bMRI 02/22: 1. No acute infarct or convincing evidence [...] change. 3. Chronic hypertensive microangiopathy. CXR 02/22: Curvilinear opacities in the right midlung in the right lung base, likely scarring/atelectasis. No effusion or pneumothorax. Precautions: fall, DAPHNE PLOF: [...] with PO since admission which occurs ~1x perday. Pt reported having swallowing difficulties following previous strokes but denied any need for altered diet. Pt reported she was on a regular diet/thin liquids prior to this admission. Clinical Impression & Professional Recommendations Diet Solids Recommendation: Mechanical soft Diet Liquids Recommendations: Juliette thick (No ice in drinks, no ice cream and no jello, soup must be thickened) Recommended Form of Medications: Whole, As tolerated Compensatory Strategies/Modifications: Single sips, Small bites, Double/repeat swallows after everydrink Postural Recommendations: Upright 90 degrees Assistance with feeding/swallowing: One to one assist with meals Specialty Instructions: (Please assist pt with oral care 2-3 times a day, including teeth brushing (gums and tongue) to improve the oral biome and reduce the risk of aspiration related complications (i.e., PNA) Overall Clinical Impression/Additional Information: Mild oral-pharyngeal swallow dysfunction with motor and sensory deficits characterized by the following: Oral Phase Deficits: prolonged but functional mastication with hard solids (pt edentulous), suspectreduced lingual to palatal contact resulting in premature [...] residue spilled into laryngeal vestibule. Material was visualizedto spill over posterior commissure and suspect resulted [...] with puree or solids. With pt's permission, MANAGER [employer] called pt's son to update son on FEES results and recommendations. Pt andpt's son verbalized understanding. Assessment Details & Results Purpose and Procedure of Flexible Endoscopic Evaluation of Swallowing: Completed to assess oropharyngeal swallow function and evaluate the safety/efficiency of the swallow so that diet recommendations can be made. Results are indicative of performance at time of exam. A flexible endoscope was passed transnasally to the level of the hypopharynx without administrationof topical anesthetic. The soft palate, pharynx, larynx, and surrounding structures were viewed. Position During Assessment: Position: Seated upright, in a bed Anatomy and Physiology Anatomy and Physiology Findings: No deficits Secretions: Minimal Consistencies Administered: Thin liquids, Juliette thick liquids, Purees, Solids Thin Liquids: Laryngeal Penetration: Present Aspiration Present: (suspect posterior aspiration) Timing: Before, After Amount: Moderate Response to aspiration: None Cough: Non-productive Unsuccessful Modifications: Chin tuck, Repeat swallow, Cough Penetration Aspiration Scale-Thin: 8-Material enters the airway, passes below the vocal folds and no effort is made to eject Belton Scale-Vallecular Residue-Thin Liquids: Mild Belton Scale-Pyriform Sinus Residue-Thin Liquids: Mild Juliette Thickened Liquids: Laryngeal Penetration: Present Aspiration Present: No Successful Modifications: Repeat swallow Unsuccessful Modifications: Cough Penetration Aspiration Scale-Juliette: 3-Material enters the airway, remains above the vocal folds and is not ejected from the airway Belton Scale-Vallecular Residue-Juliette Thickened Liquids: Trace Belton Scale-Pyriform Sinus Residue-Juliette Thickened Liquids: Trace Purees: Laryngeal Penetration: None [...] treatment goals and details, if indicated. Plan [employer] Frequency of Services during current admission: 2-4x/wk [employer] Recommendation (Add'l Services): Inpatient Rehab Facility Next Visit Plan:treatment/therapy Additional Referrals: PT/OT Discharge Summary Statement If this is the last swallow therapy visit, this serves as the discharge summary. ON GRAPHICS DESIGNER * Chika Fish SLP - 02/26/2024 8:54 AM CST Speech-Language Pathology: Clinical Bedside Swallow HPI/PMH HPI/PMH: 73 y.o. woman with past medical history of ESRD on HD TTS, HTN, undiagnosed COPD, prior left BG/thalamic calcifications/hemorrhage discovered in 2019 after stroke presentation (with residualRSW) who presented with hyperacute onset right sided weakness, right facial droop, and dysarthria. CTH with left deep oliveira calcifications, obscuring [...] BG/thalamic calcifications). Also with scattered chronic infarcts andsevere white matter disease. Respiratory/Intubation Status: currently on room air Imaging:bMRI 02/22: 1. No acute infarct or convincing evidence [...] change. 3. Chronic hypertensive microangiopathy. CXR 02/22: Curvilinear opacities in the right midlung in the right lung base, likely scarring/atelectasis. No effusion or pneumothorax. Precautions: fall, DAPHNE PLOF: Per chart review, At baseline, she has mild right sided [...] with PO since admission which occurs ~1x perday. Pt reported having swallowing difficulties following previous strokes but denied any need for altered diet. Pt reported she was on a regular diet/thin liquids prior to this admission. Clinical Impression & Professional Recommendations Diet Solids Recommendation: NPO (pending FEES) Diet Liquids Recommendations: NPO for liquids (pending FEES). Ice chips okay sparingly for comfort Recommended Form of Medications: Feeding tube, Non-orally Specialty Instructions: (Please assist pt with oral care 2-3 times a day, including teeth brushing (gums and tongue) to improve the oral biome and reduce the risk of aspiration related complications (i.e., PNA) Dysphagia Diagnosis: Suspect dysphagia Overall Clinical Impression/Additional Information: Pt was repositioned upright to 90 degrees and was presented with trials of thins via teaspoon, cup edge, and straw, purees, and solids. Pt with inconsistent coughing following thin liquids and puree, suggestive of possible penetration/aspiration. No s/s aspiration following any soft solid trials. Pt able to demonstrate adequate oral phase and clearance of oral cavity post-swallow on all administered consistencies. Of note, pt edentulous and denied having dentures present; therefore, hard solids deferred during the evaluation. Recommend FEES to further assess current function, r/o aspiration, and to determine safest and least restrictive diet. Assessment Details & Results Consistencies Administered: Ice chips, Thin liquids, Purees, Soft Solids MASA: [place] Assessment of Swallowing Ability (MASA) Alertness: Alert Cooperation: Cooperative Auditory Comprehension: Follows simple conversation with repetition Respiration: Sputum upper airway/other condition Respiratory Rate (for swallow): Able to control breath rate for swallow Aphasia: Expresses self in limited manner short phrases/words Apraxia: No abnormality detected Dysarthria: Slow with occasional hesitation or blurring Saliva: No abnormality detected Lip Seal: No abnormality detected Tongue Movement: Full range of motion Tongue Strength: No abnormality detected Tongue Coordination: No abnormality detected Gag: No gag (did not assess) Palate: Slight asymmetry/mobile Cough Reflex: No deficit noted Voluntary Cough: No abnormality detected Voice: No abnormality detected Trach: No trach Oral Preparation: No deficits noted Bolus Clearance: Significant clearance, minimal residue Oral Transit: Delay > 1 second Delay consistency: Solids Pharyngeal Phase: Mildly restricted laryngeal elevation, Slow initiation Pharyngeal Response: Cough before, during, or after swallow MASA Score: 174 Dysphagia: Mild dysphagia (168-177) Aspiration Risk: No aspiration risk (170-200) Plan [employer] Frequency of Services during current admission: Pending instrumental assessment [employer] Recommendation (Add'l Services): Defer at this time Further Assessment/Follow up Indicated: Recommendations: Follow-up fiberoptic endoscopic evaluation of swallowing Next Visit Plan:instrumental evaluation Additional Referrals: PT/OT Please reference care plan for treatment goals, if indicated. Discharge Summary Statement If this is the last swallow therapy visit, this serves as the discharge summary. ON GRAPHICS DESIGNER documented in this encounter Consult Notes * Kveon Kerns MD - 02/25/2024 5:21 PM CSTAssociated Order(s): IP CONSULT TO NEPHROLOGY NEPHROLOGY INITIAL CONSULTATION NOTE REASON FOR CONSULT: TTS dialysis, will be here 02/25 REQUESTING PROVIDER: Fabiana Wilson MD CHIEF COMPLAINT/REASON FOR ADMISSION: Right-sided weakness HPI Ms. Waite is a 73 y.o. female with a history of ESRD on HD TTS, hypertension, history of CVA who presented to the hospital with right-sided weakness. Renal consultation is requested for the management of ESRD. History today is obtained from the patient and records. I also reviewed records from thefollowing unique sources (external institutions or providers from different services). She initially presented on 02/23/2024 with right-sided weakness and facial droop and dysarthria, was hypotensive on arrival, she underwent a CTA which showed asymmetric calcifications oliveira matter, nolarge vessel occlusion or high-grade stenosis. She was initially admitted to the neuro ICU and thenshjolie was transferred out, she usually does dialysis TTS schedule, last dialysis was on , no issues with dialysis per patient, usually does it for about 3.5 hours, she does it at [facility] in [place]. Target Weight 76.5 kg Dialysate Flow Rate 600 mL/min Blood Flow Rate 400 mL/min Treatment Time 210 min(total) Max UF Rate 13 mL/kg/hr Base Sodium Dialysate Base Sodium 135 mEq/L dialysate_temp 36 ?C BiCarb Dialysate BiCarbonate 38 mEq/L Access Concurrent No Arterial Access Central Venous Catheter (CVC) (Chest (Left)) Venous Access Central Venous Catheter (CVC) (Chest (Left)) Dialyzer Rosangela Blankenship 17H [id number] [email or web address] Dialysate Bath Potassium Potassium 2 mEq/L Dialysate Bath Calcium Calcium 2.5 mEq/L REVIEW OF SYSTEMS: As per HPI. All other systems are negative. MEDICAL HISTORY Past Medical History: Diagnosis Date CHF (congestive heart failure) (CMS/HCC) ([facility]) CKD (chronic kidney disease), stage IV (CMS/HCC) ([facility]) COPD (chronic obstructive pulmonary disease) ([facility]) Depression Hemiplegia and hemiparesis following cerebral infarction affecting right dominant side ([facility]) HLD (hyperlipidemia) Hypertension Memory deficit following other cerebrovascular disease Metabolic encephalopathy Osteoarthritis Polyneuropathy Stroke ([facility]) Past Surgical History: Procedure Laterality Date JOINT REPLACEMENT SHOULDER SURGERY Right TOTAL HIP ARTHROPLASTY Bilateral MEDICATIONS: HOME MEDICATIONS : amLODIPine (NORVASC) 5 mg tablet aspirin 81 mg enteric coated tablet cholecalciferol (VITAMIN D-3) 5,000 unit tablet furosemide (LASIX) 20 mg tablet gabapentin (NEURONTIN) 100 mg capsule HYDROcodone-acetaminophen (NORCO) 5-325 mg per tablet lidocaine (LIDODERM) 5 % metoprolol XL (TOPROL-XL) 25 mg extended release tablet omeprazole 20 mg tablet,delayed release (DR/EC) sevelamer (RENAGEL) 800 mg tablet SCHEDULED MEDS CONTINUOUS MEDS PRN MEDS aspirin, 81 mg, oral, Daily gabapentin, 100 mg, oral, TID heparin, 5,000 Units, subcutaneous, Q8H VARGHESE senna, 1 tablet, oral, BID sevelamer, 800 mg, oral, TID with meals sodium chloride 0.9%, 0.5-20 mL, intra-catheter, Q8H VARGHESE (ALT) acetaminophen Saline lock IV AND sodium chloride 0.9% AND sodium chloride 0.9% AND sodium chloride 0.9% ipratropium-albuteroL ALLERGIES No Known Allergies SOCIAL AND FAMILY HISTORY Social History Tobacco Use Smoking status: Former Types: Cigarettes Smokeless tobacco: None Substance and Sexual Activity Drug use: None Sexual activity: None Alcohol Use: Not At Risk (12/20/2022) Received from [facility], [facility] AUDIT-C Frequency of Alcohol Consumption: Never Average Number of Drinks: Patient does not drink Frequency of Binge Drinking: Never No family history on file. PHYSICAL EXAM: VITAL SIGNS: T36.7 ??C (98 ??F); HR 63; BP 145/81; RR 15; SpO2 98 % Weight: 79 kg (174 lb 2.6 oz) Weight Method: Bed scale 24hr Min/Max: Intake/Output Temp Min: 36.6 ??C (97.8 ??F) Max: 36.8 ??C (98.2 ??F) Pulse Min: 55 Max: 87 BP Min: 118/66 Max: 157/91 Resp Min: 13 Max: 25 SpO2 Min: 93 % Max: 100 % I/O last 3 completed shifts: In: 850 [P.O.:720; I.V.:30; IV Piggyback:100] Out: 525 [Urine:525] No intake/output data recorded. GENERAL: Alert and awake, not in distress HENT: MM pink and moist. Oropharynx clear. EYES: Sclera anicteric CVS: regular rate and rhythm, normal S1 and S2 trace to 1+ bilateral pedal edema LUNGS: clear to auscultation bilaterally ABD: Soft SKIN: No rash MARKETING COMPLIANCE MANAGER: alert and oriented times 3 PSYCH: Pleasant, cooperative, appropriate affect MSK: No joint swelling or tenderness DIALYSIS ACCESS EXAM: Primary Access: AVF Location of Primary Site: left upper arm LABORATORY DATA: Recent Labs Lab Units 02/24/24200902/23/24212202/23/24 1840 WBC K/cumm 10.0* 8.5 8.9 HEMOGLOBIN g/dL 10.4* 10.1* 9.7* PLATELETS K/cumm 228 202 180 Recent Labs Lab Units 02/24/24200902/23/24212202/23/24 1840 SODIUM mmol/L 141 139 140 POTASSIUM PLASMA mmol/L 4.8 4.1 3.5 CHLORIDE mmol/L 100 102 103 CO2 mmol/L 27 28 27 BUN SERUM mg/dL 32* 18 16 CREATININE mg/dL 5.37* 4.00* 3.65* ALBUMIN g/dL -- 3.1* 2.9* CALCIUM mg/dL 9.3 7.9* 7.5* MAGNESIUM mg/dL -- 2.1 2.0 Recent Labs Lab Units 02/24/24200902/23/24224602/23/24212202/23/24 1840 CALCIUM mg/dL 9.3 -- 7.9* 7.5* CALCIUM ION mg/dL 4.55 3.82* -- -- PHOSPHORUS PLASMA mg/dL -- -- 4.4 -- URINALYSIS AND MICROSCOPY Recent Labs Lab Units 02/24/24 0151 PH, URINE 8.0 PROTEIN UR QL 1+* GLUCOSE URQL Negative BLOOD UR Negative RADIOLOGY: Available imaging reviewed IMPRESSION AND RECOMMENDATIONS End stage renal disease on In center hemodialysis with AVF access. -Inpatient Rx: 3.5hrs/BFR 400/ DFR 800/3K/2.5 Ca -Inpatient Schedule: [facility] -Inpatient Adequacy: No data recorded -Target weight: ? Recent Labs Lab Units 02/24/24200902/23/24212202/23/24 1840 POTASSIUM PLASMA mmol/L 4.8 4.1 3.5 CO2 mmol/L 27 28 27 BUN SERUM mg/dL 32* 18 16 -Plan for HD tomorrow 1-2 L UF, 3 K bath, 3.5 hours -Please obtain daily weights (standing if able) Hypertension -Home regimen: Lasix, metoprolol -Blood pressure at goal -Monitor vital signs per protocol Anemia in ESRD -Hemoglobin at goal On Venofer as outpatient -Monitor and supportive transfusion to keep hemoglobin above 7 Bone mineral disease -PTH 655 -Vitamin D ? -On calcitriol 3 times a week, unclear dose -Recommend renal diet Vascular access -Patient's Tunneled catheter is working well. -Please protect vascular access extremity from any venipunctures or blood pressure monitoring. Please place sign above bed to protect the extremity. Do not place PICC lines in either extremity. Medication dosing -Please dose all medications for ESRD. Medications cleared by dialysis should be dosed after dialysis. This applies to commonly used antibiotics - e.g. vancomycin, aminoglycosides, merpoenem, cefepime, cefazolin, daptomycin, etc. -Please check dosing of all medications with pharmacy to ensure safe and efficacious dose in patients undergoing dialysis. Kevon Kerns MD PGY4, Nephrology Fellow Dialysis FRUIT STUFFER Service, From 4 PM-6AM on + after 12 PM on Sunday + all day Sunday, please contact renal fellow credit union examiner at Cosigned by Desire Barlow MD at 02/26/2024 7:25 PM MOTION GRAPHICS DESIGNER ON GRAPHICS DESIGNER ON GRAPHICS DESIGNER Associated attestation - Desire Barlow MD - 02/26/2024 7:25 PM MOTION GRAPHICS DESIGNER I saw and examined the patient on 02/26/24. I agree with the findings and plan of care as documented in the renal fellow/resident's note. ESRD on HD TTS presenting with R sided weakness. HD today without difficulty. Seen and examined while on the machine, no acute issues noted. No nursing concerns. Supplemental Attestation: The total encounter time on this service date was 30 minutes which was spent performing a vmlt-om-gehv encounter and personally completing the provider-level activities documented in the note. This includes time spent prior to the visit and after the visit in direct care of the patient. This time does not include time spent in any separately reportable services. Desire Barlow MD * Lissett Vo MD - 02/23/2024 6:48 PM CSTAssociated Order(s): IP CONSULT TO NEUROLOGY Hyperacute Stroke Team - [facility] Consult Note Initial information: Narrative: Ms. Waite is a 73 y.o. female who presents as an acute tPA page. Requesting provider: Fabiana Wilson MD Reason for consult: Acute stroke suspected Page time (24h format): 02/23/2024 17.53 (patient physically arrived around 18.10) Last known well Date Last Known Well : 02/23/24 Time Last Known Well: 1634 Discovery of Symptoms - Date: 02/23/24 Discovery of Symptoms - Time: 163 (02/23/24 184) Chief complaint: R sided weakness, worsening R facial droop and slurred speech HPI: Trisha Waite is a 73 yo female with history of ESRD on HD, HTN, COPD who presents as code stroke for R sided weakness, worsening R facial droop and slurred speech. At baseline the only known neuro deficits she has is mild right facial droop. Per report, today shewas with her son and was at her baseline, when at 16.35 she was taking her medications and she suddenly developed R sided weakness involving face (worse than her baseline), arm and leg. Possibly alsoslurred speech but hard to assess precisely since patient has poor dentition. She was taken to [facility] ED via helicopter. On arrival she was awake, alert, sustaining attention and able to cooperate with the exam. Stroke risk factors: Hypertension Notable home meds (i.e., anticoagulation): ?aspirin Past medical history, past surgical history, current medications, allergies, family history and social history were reviewed, and are noted at the end of this note. Vitals: 02/23/241848 BP: Pulse: Resp: Temp: 36.2 ??C (97.1 ??F) SpO2: NIH Stroke Scale Interval: Baseline Level of Consciousness (1a.): Alert, keenly responsive LOC Questions (1b.): Answers one question correctly LOC Commands (1c.): Performs both tasks correctly Best Gaze (2.): Normal Visual (3.): No visual loss Facial Palsy (4.): Minor paralysis Motor Arm, Left (5a.): No effort against gravity Motor Arm, Right (5b.): No drift Motor Leg, Left (6a.): No effort against gravity Motor Leg, Right (6b.): Drift Limb Ataxia (7.): Absent Sensory (8.): Eefe-aa-mloxrxxg sensory loss, patient feels pinprick is less sharp or is dull on theaffected side, or there is a loss of superficial pain with pinprick, but patient is aware of being touched Best Language (9.): No aphasia Dysarthria (10.): Elbf-kr-pzytrvjv dysarthria, patient slurs at least some words and, at worst, canbe understood with some difficulty Extinction and Inattention (11.) (Formerly Neglect): No abnormality Total: 11 (02/23/249) Dominguez labs (FSBG, INR, platelets, Xa): Lab Results Lab Value Date/Time GLUCOSE 105 02/23/2024 1821 GLUCOSE 108 03/01/2023 0440 INR 1.0 02/23/2024 1822 HCT findings: per Radiology left basal ganglia hyperdensities seem more consistent with calcifications, but cannot rule out superimposed blood with available imaging. Thrombolytic decision: tPA decision: NO-GO, likely to be a stroke mimic tPA decision time (24 hour format): 20:19 tPA bolus time (24 hour format): N/A, thrombolytics not given BP prior to tPA bolus: N/A, thrombolytics not given Reason for tPA delay (>30 mins mirv-kd-ddsbut, if applicable): N/A, patient did not receive thrombolytics Thrombectomy decision: LVO on CTA?: no CTA read time/fellow: 18.55 CTP: Core volume: N/A, CT perfusion not performed mL Penumbra volume: N/A, CT perfusion not performed mL Mismatch ratio: N/A, CT perfusion not performed Baseline functional status: MRS 1: The patient has symptoms but no significant disability; able to carry out all activities. Intervention: NO-GO: Rationale: CTA performed with no LVO Neuro-IR contact time: N/A, Patient NO-GO for intervention Hyperacute MRI Indication: Mimic suspected / Rule out stroke Findings: No acute infarct or convincing evidence of acute intracranial hemorrhage. Asymmetric bilateral basal ganglia and cerebellar dentate nuclei susceptibility artifact favored to represent mineralization. Wake-up stroke: Time of symptom discovery (24h format): 16:35 DWI-FLAIR mismatch: No acute stroke found MRI read time/fellow: Dr. Johnson on 02/23/2024 at 8:04 PM. Physical Examination: BP (!) 89/57 Pulse 66 Temp 36.2 ??C (97.1 ??F) (Axillary) Resp 19 Ht 170.2 cm (5' 7 ) Wt 80.7 kg (178 lb) SpO2 96% BMI 27.88 kg/m?? GEN: NAD HEENT: NC/AT, MMM CV: Regular rate and rhythm PULM: No increased work of breathing ABD: Soft, nontender, nondistended EXT: Warm and well-perfused SKIN: Warm and dry Neurologic Examination at 7pm: Mental status: awake, alert, conversational, oriented to self and place Speech: no aphasia; mild dysarthria but iso poor dentition Cranial Nerves: mild right lower facial droop Motor: right hemiparesis, can wiggle fingers and toes but extremities have no antigravity effort. On reassessment around 7 pm, R deltoid is 4-/5, R biceps and triceps is around 4/5. R HF is 3/5 and 4- to 4/5 distally. Reflexes: deferred Sensory: right hypoesthesia Coordination Gait: no significant dysmetria with left extremities Inattention: absent Other: Assessment & Plan: Trisha Waite is a 73 yo female with history of ESRD on HD, HTN, COPD who presents as code stroke for R sided weakness, worsening R facial droop and slurred speech. At baseline patient has mild right facial droop and RSW. Per report, today she was with her son andwaoleg at her baseline, when at 16.35 she was taking her medications and then the patient tensed up, back stiffened, and neck extended. The patient's eyes were wide, but she did not have gaze deviation.Then suddenly she developed worsened R sided weakness involving face, arm and leg. Possibly also slurred speech but hard to assess precisely since patient has poor dentition. She was taken to [facility] ED via helicopter. On arrival she was awake, alert, sustaining attention and able to cooperate with theexam. NIHSS score was initially 11, but improved once hypotension was addressed. Compared to arrival to ED when she had severe R hemiparesis while her BP was 85/60, on reassessment around 7 pm when her BP was 110/80, her strength had overall improved as above. Head CT did not show acute intracranial findings. CTA did not show LVO. There was concern for possible blood versus calcification in left basal ganglia, so hyperacute MRI was pursued, which did not show acute stroke or hemorrhage. In addition, she was back to her baseline. She was a NO-GO for TNK as this was likely a stroke mimic in thesetting of hypotension, patient was back to baseline after treatment of hypotension with IVF, and no acute stroke was found on hyperacute MRI. She was a NO-GO for thrombectomy as there was no LVO. Initial presentation sounds concerning for seizure with the patient's back stiffening and neck extension, it is possible that the RSW was post-ictal. However, the patient had improvement after low blood pressure was treated, which could also point in the direction of brain hypoperfusion. Lower in the differential is stroke recrudescence. Recommendations: 1. Treat hypotension as this was most likely causing global hypoperfusion to the brain 2. Obtain EEG if concern for seizure associated with presentation remains 3. Infectious work-up to assess for stroke recrudescence (Blood cultures, UA, respiratory viral panel) Disposition: NNICU Case discussed with stroke chief: The [facility] team will sign off due to patient admission to the stroke/NNICU service. For acute neurologic change and repeat stroke assessment, please activate the acute stroke pager at [phone]. For a non-emergent questions please call the inpatient stroke phone at [phone]. Lissett Vo MD 02/23/2024, 6:51 PM Subjective Past Medical History: Past Medical History: Diagnosis Date CHF (congestive heart failure) (CMS/HCC) ([facility]) CKD (chronic kidney disease), stage IV (CMS/HCC) ([facility]) COPD (chronic obstructive pulmonary disease) ([facility]) Depression Hemiplegia and hemiparesis following cerebral infarction affecting right dominant side ([facility]) HLD (hyperlipidemia) Hypertension Memory deficit following other cerebrovascular disease Metabolic encephalopathy Osteoarthritis Polyneuropathy Stroke ([facility]) Past Surgical History: Past Surgical History: Procedure Laterality Date JOINT REPLACEMENT SHOULDER SURGERY Right TOTAL HIP ARTHROPLASTY Bilateral Medications: No current facility-administered medications on file prior to encounter. Current Outpatient Medications on File Prior to Encounter Medication Sig Dispense Refill amLODIPine (NORVASC) 5 mg tablet Take 1 tablet (5 mg total) by mouth daily aspirin 81 mg enteric coated tablet Take 1 tablet (81 mg total) by mouth daily cholecalciferol (VITAMIN D-3) 5,000 unit tablet Take 1 tablet (5,000 Units total) by mouth daily furosemide (LASIX) 20 mg tablet Take 1 tablet (20 mg total) by mouth every other day gabapentin (NEURONTIN) 100 mg capsule Take 1 capsule (100 mg total) by mouth 3 (three) times a day HYDROcodone-acetaminophen (NORCO) 5-325 mg per tablet Take 1 tablet by mouth every 6 (six) hours asneeded for pain lidocaine (LIDODERM) 5 % Place 1 patch on the skin daily Remove & discard patch within 12 hoursor as directed by . 7 patch 0 metoprolol XL (TOPROL-XL) 25 mg extended release tablet Take 1 tablet (25 mg total) by mouth daily omeprazole 20 mg tablet,delayed release (DR/EC) Take 1 tablet (20 mg total) by mouth daily Allergies: No Known Allergies Family History: No family history on file. Social History: Social History Tobacco Use Smoking status: Former Types: Cigarettes Smokeless tobacco: None Substance and Sexual Activity Drug use: None Sexual activity: None Alcohol Use: Not At Risk (12/20/2022) Received from [facility], [facility] AUDIT-C Frequency of Alcohol Consumption: Never Average Number of Drinks: Patient does not drink Frequency of Binge Drinking: Never Review of Systems: A complete review of systems was performed including symptoms pertaining to the following systems: constitutional, cardiovascular, respiratory, gastrointestinal, genitourinary, musculoskeletal, neurological, psychiatric, endocrine, immunologic, integumentary, hematological, eyes, and ears, nose, mary th, and throat. All systems were negative except as noted in the History of Presenting Illness (HPI). ON GRAPHICS DESIGNER ON GRAPHICS DESIGNER ON GRAPHICS DESIGNER * Demond Mo MD - 02/23/2024 6:45 PM CSTAssociated Order(s): IP CONSULT TO NEUROSURGERY Neurosurgery Consultation Patient: Trisha Waite CSN: [id number] : 1950 Admission date: 02/23/2024 Length of stay (days): 1 Consulting: Dr. Sanchez Requesting provider: ED Reason for consultation: Acute onset right-sided weakness History of present illness: Trisha Waite is a 73 y.o. female with a past history of ESRD on dialysis, hypertension, COPD, MDD, prior CVA with right-sided weakness, who presented with hyperacute onset right-sided weakness, facial droop, and dysarthria. She had dialysis this morning and was hypotensive afterwards. Her lastknown normal was at 4:35 p.m., she noted that she had some right-sided weakness and slurred speech.She was taken to [facility] and was a code stroke upon arrival. Her stroke scale in theED was 11. She had calcifications in the yfmf-eouyqwc-omxo-right basal ganglia obscuring acute bleed. She did have a developmental venous anomaly noted on CTA head and neck but no LVO. The DVA has been known on prior head CTs from 2020. Review of systems: A full review of systems was completed and was negative unless otherwise stated in the HPI. Past medical/surgical history: ESRD Hypertension COPD MDD Prior CVA with right-sided weakness Allergies: No Known Allergies Medications: HOME MEDICATIONS : amLODIPine (NORVASC) 5 mg tablet aspirin 81 mg enteric coated tablet cholecalciferol (VITAMIN D-3) 5,000 unit tablet furosemide (LASIX) 20 mg tablet gabapentin (NEURONTIN) 100 mg capsule HYDROcodone-acetaminophen (NORCO) 5-325 mg per tablet lidocaine (LIDODERM) 5 % metoprolol XL (TOPROL-XL) 25 mg extended release tablet omeprazole 20 mg tablet,delayed release (/EC) Social history: The patient's primary emergency contact is her son whose contact information is below: Extended Emergency Contact Information Primary Emergency Contact: Zack Hightower Mobile Relation: Son Preferred language: [employer] Paralegal needed? No Secondary Emergency Contact: Ricki Mcgarry Mobile Relation: Brother Preferred language: [place] [employer] Paralegal needed? No Family history: Reviewed and noncontributory. Physical Examination: Neuro: Opens eyes spontaneously, regards, follows commands Oriented x3 ZOE, EOMI, trace right facial droop, tongue midline, dysarthric speech Right upper and lower extremity 4/5 Left upper and lower extremity 5/5 Right drift Psych: normal mood Constitutional: no acute distress HENT: normocephalic Cardiovascular: normal rate Pulmonary: normal respiratory effort Abdominal: non-distended Musculoskeletal: normal range of motion Imaging and Labs: calcifications in the jqdt-fsqgigd-wekz-right basal ganglia obscuring acute bleed. She did have a developmental venous anomaly noted on CTA head and neck but no LVO Labs: Na 139 Cr 4.00 WBC 8.5 Hgb 10.1 Plt 202 INR 1.00 PTT 25 Assessment and Plan Trisha Waite is a 73 y.o. female on aspirin 81 presenting with likely recrudescence of her prior stroke in the setting of hypotension. 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 Upon admission to the ICU, with resuscitation, her symptoms have improved. We will defer furthermanagement of her stroke to stroke Neurology/neuro ICU team at this time. We will discuss need to get further imaging on the DVA. BMP, CBC, PT, PTT, UA macro-micro, CXR, EKG, T&S This plan was discussed with the chief resident and attending credit union examiner. For any questions regarding care of this patient, please page Neurosurgery at [phone]. Demond Mo MD Cosigned by Matt Sanchez MD at 02/24/2024 4:06 PM MOTION GRAPHICS DESIGNER ON GRAPHICS DESIGNER ON GRAPHICS DESIGNER ON GRAPHICS DESIGNER Associated attestation - Matt Sanchze MD - 02/24/2024 4:06 PM MOTION GRAPHICS DESIGNER I have seen and examined the patient on 02/24/24. I agree with the findings and plan of care as documented in the resident's/fellow's note.. documented in this encounter Nursing Notes * Jessica Elder RN - 02/29/2024 4:37 PM CST [facility] Belongings sent with patient. Son bedside. Facility notified of departure of patient. ON GRAPHICS DESIGNER * Sarah Griffith RN - 02/29/2024 1:24 PM CST [facility] with DANIAL chavez. AVS faxed to facility. Waiting on transport ON GRAPHICS DESIGNER * Maite Broussard RN - 02/29/2024 10:45 AM CST HD terminated soon after troubleshooting due to persistent cramps and dizziness. Treatment duration2 hours and 40 mins, UF goal 1.5 not reached; 1L net removed. CVC de-accessed, flushed with saline and locked with alteplase. Report given to Sarah BARROW, via diana call. Patient transported in stable condition. Treatment parameters: spKt/v : 1.80 sURR : 84 eKt/v : 1.43 eURR : 76 ON GRAPHICS DESIGNER ON GRAPHICS DESIGNER * Maite Broussard RN - 02/29/2024 10:15 AM CST Pt reported dizziness, nausea, cramps; was noted being restless. Venous was also high in the 300s, thus troubleshooting done. Dialyzer and blood lines changed. UF goal adjusted. After connecting pt back to the machine, restlessness persisted and pt still reported cramps and dizziness, thus HD terminated with 20 mins remaining time. ON GRAPHICS DESIGNER * Violeta Shultz RN - 02/29/2024 8:00 AM CST Patient arrived to unit via bed; placed on bedside monitors. Patient is awake, alert, oriented LeftTDC accessed, ports scrubbed and checked patency. Good flows noted. HD started and continued to monitor. UF goal set at 1.5 liters for 3 hours treatment duration. Clinical Goals for Treatment: Patient will maintain hemodynamically stable. Prevent and manage potential signs and symptoms of hemodialysis complications. HD access sites, bloodlines and patient's face will be visible during dialysis. VS will be monitored and charted accordingly. ON GRAPHICS DESIGNER * Richi Sanchez RN - 02/29/2024 12:01 AM CST Dialysis Report Reason for Admit - Stroke-like symptoms Code status - Full Orientation status - X3 Isolation - No Are they on tele/ what's the rhythm - No Is Patient NPO- No Is patient on tube feeds- No (tube feeds will have to be held/paused and disconnected with travel) Diabetic/ next ACCU check due - No Are they on oxygen / L - No Any meds given (Abx, midodrine, BP meds?) -No Any blood pressures issues - No On any drips - No (Amiodarone <5mg/min & stable; Nitroglycerin </= 50mcg; Diltiazem </=15mg/hr stable) Any meds to give with dialysis (Epo, ferrlecit, procrit, aranesp, Abx post treatment)- No Any pain issues/ Pain meds given - No Any other procedures pending - No Where is the dialysis access - L chest TDC Any labs to draw -No Does patient need blood -No Does pt have current wt in [facility]- RN will obtain, What is it? Is patient continent-No Is patient on AWAS precautions -No Is patient Elopement precautions- No Does the the patient have a trach? - No (No cuffed trachs on floor, unless it is deflated). Has patient been off the vent for 48 hours? -N/A What is the estimate discharge date? - 02/28 Any concerns about patient - No Report received from - DANIAL Summers and the chart Are you ok with secure chat- ON GRAPHICS DESIGNER * Rosemary aLw RN - 02/28/2024 12:00 PM CST Dialysis Report Reason for Admit - possible intercranial hemorrhage Code status - full Orientation status - a&o x 1-3 Isolation - none Are they on tele/ what's the rhythm - yes, nsr Is Patient NPO- no Is patient on tube feeds- no (tube feeds will have to be held/paused and disconnected with travel) Diabetic/ next ACCU check due - no Are they on oxygen / L - RA Any meds given (Abx, midodrine, BP meds?) -yes Any blood pressures issues -no keep SBP > 120 On any drips - no (Amiodarone <5mg/min & stable; Nitroglycerin </= 50mcg; Diltiazem </=15mg/hr stable) Any meds to give with dialysis (Epo, ferrlecit, procrit, aranesp, Abx post treatment)- no Any pain issues/ Pain meds given - no Any other procedures pending - no Where is the dialysis access - L CVC, Any labs to draw - no Does patient need blood -no Does pt have current wt in [facility]- yes, What is it? 76.2kg Is patient continent-no Is patient on AWAS precautions -no Is patient Elopement precautions- no Does the the patient have a trach? - no (No cuffed trachs on floor, unless it is deflated). Has patient been off the vent for 48 hours? -n/a What is the estimate discharge date? - unknown Any concerns about patient - impulsive, but redirectable Report received from - DANIAL Pereyra Are you ok with secure chat- yes ON GRAPHICS DESIGNER * Danya Lazar RN - 02/26/2024 6:50 PM CST HD completed 30 min early per pt request due to cramping in left hand. Total treatment time was 3 hours, total UF was 1.5L. Left CVC de-accessed without difficulty. Catheter saline flushed and alteplase locked. Report given to floor RN. Patient resting in bed. ON GRAPHICS DESIGNER * Danya Lazar RN - 02/26/2024 3:55 PM CST Labs, vitals and medication reviewed. Patient verified. Patient resting in bed, call light in reach. Report received from floor nurse. Dialysis treatment explained to patient. Left CVC accessed, withpositive blood return, flushes well after one round of alteplase dwell for one hour. Hemodialysis treatment started. Acceptable blood flow rate achieved, pressures within range. Treatment set for 3.5hours with 2 liters fluid removal. Clinical Goals for Treatment: Prevent and manage potential signs and symptoms of complications of hemodialysis. Dialysis access site, blood lines, connections, and patients face will be visible during dialysis treatment. Vital signs will be charted every 15 minutes on a continuous ekg monitor tech while on dialysis treatment. Patient will remain free from falls/injury during dialysis. ON GRAPHICS DESIGNER * Danya Lazar RN - 02/26/2024 2:52 PM CST Pt arrived with non working catheter. Nephrology notified and alteplase instilled. ON GRAPHICS DESIGNER * Komal Reis RN - 02/26/2024 1:58 PM CST Port LDA removed from chart d/t patient does not have a history of a port. Has never had a port in place. Patient does not know what a port is when asked if she has had one. Patient has HD catheter in same location that port was documented to be in. Port was likely misdocumentation. No scarring to chest where port would have been. Patient denies any infusions/chemo in 2022 when port was documented to have been placed. Unable to find any port placement on chart review. Port LDA removed. HD catheter LDA left in place as this is present currently. ON GRAPHICS DESIGNER * Danya Lazar RN - 02/26/2024 9:47 AM CST Dialysis Report Reason for Admit - possible intercranial hemorrhage Code status - full Orientation status - a&o x 3 Isolation - none Are they on tele/ what's the rhythm - yes, nsr Is Patient NPO- yes until test Is patient on tube feeds- no (tube feeds will have to be held/paused and disconnected with travel) Diabetic/ next ACCU check due - no Are they on oxygen / L - no Any meds given (Abx, midodrine, BP meds?) -yes Any blood pressures issues - htn On any drips - no (Amiodarone <5mg/min & stable; Nitroglycerin </= 50mcg; Diltiazem </=15mg/hr stable) Any meds to give with dialysis (Epo, ferrlecit, procrit, aranesp, Abx post treatment)- no Any pain issues/ Pain meds given - no Any other procedures pending - FESS Where is the dialysis access - L CVC, fistula isn't active Any labs to draw - Hep B Does patient need blood -no Does pt have current wt in [facility]- no, What is it? Rn will get Is patient continent-no Is patient on AWAS precautions -no Is patient Elopement precautions- no Does the the patient have a trach? - no (No cuffed trachs on floor, unless it is deflated). Has patient been off the vent for 48 hours? -n/a What is the estimate discharge date? - unknown Any concerns about patient - no Report received from - DANIAL Pretty Are you ok with secure chat- yes ON GRAPHICS DESIGNER * Logan Hanley, DANIAL - 02/25/2024 12:53 AM CST Took over patient care as primary RN from Luz Mraia at approx. [phone]. Agree with previously charted assessment unless otherwise charted. ON GRAPHICS DESIGNER documented in this encounter ED Notes * Radha Quintanilla MD - 02/23/2024 8:46 PM CST HPI Chief Complaint Patient presents with Stroke Pt is a 73 year old female with PMH CVA w/ residual right sided deficits, COPD, ESRD on hemodialysis, HTN, CHF, HLD, who presents via EMS as a stroke alert due to sudden onset right sided facial droop and trouble swallowing pills at 1635 today. Onset was witnessed by family members. Pt takes ASA, no other blood thinners. History provided by: Patient and EMS personnel Unable to obtain history due to : Acuity of condition reading instructor used: No Patient History: Patient Active Problem List Diagnosis Date Noted Intracranial hemorrhage (HCC) 02/23/2024 COPD with acute exacerbation ([facility]) 02/28/2023 Closed fracture of one rib of right side 02/28/2023 Musculoskeletal chest pain 02/28/2023 Acute respiratory failure with hypoxia ([facility]/HCC) ([facility]) 02/28/2023 Mild bibasilar atelectasis 02/28/2023 Acute bronchitis 02/28/2023 Dependent on hemodialysis ([facility]) ([facility]) 02/28/2023 Primary hypertension 02/28/2023 ESRD (end stage renal disease) on dialysis ([facility]) 02/28/2023 Past Medical History: Diagnosis Date CHF (congestive heart failure) (CMS/HCC) ([facility]) CKD (chronic kidney disease), stage IV (CMS/[facility]) ([facility]) COPD (chronic obstructive pulmonary disease) ([facility]) Depression Hemiplegia and hemiparesis following cerebral infarction affecting right dominant side ([facility]) HLD (hyperlipidemia) Hypertension Memory deficit following other cerebrovascular disease Metabolic encephalopathy Osteoarthritis Polyneuropathy Stroke ([facility]) Past Surgical History: Procedure Laterality Date JOINT REPLACEMENT SHOULDER SURGERY Right TOTAL HIP ARTHROPLASTY Bilateral No family history on file. Social History Tobacco Use Smoking status: Former Types: Cigarettes Smokeless tobacco: None Substance and Sexual Activity Alcohol use: None Drug use: None Sexual activity: None Social History Social History Narrative Not on file Review of Systems Review of Systems Physical Exam ED Triage Vitals Temp Pulse Resp BP SpO2 02/23/249 02/23/24182202/23/24182202/23/24182202/23/241822 36.2 ??C (97.1 ??F) 66 19 (!) 88/69 96 % Temp src Heart Rate Source Patient Position BP Location FiO2 (%) 12/07/24 18402/23/24202002/23/24202002/23/242020 -- Axillary Monitor HOB 30 degrees Right arm Height Height Method Weight Weight Method 02/23/24184602/23/24202002/23/24184602/23/241846 1.702 m (5' 7 ) Stated 80.7 kg (178 lb) Stated Physical Exam Vitals and nursing note reviewed. Constitutional: General: She is not in acute distress. Appearance: She is well-developed. She is not ill-appearing, toxic-appearing or diaphoretic. HENT: Head: Normocephalic and atraumatic. Mouth/Throat: Mouth: Mucous membranes are moist. Pharynx: Oropharynx is clear. Eyes: Extraocular Movements: Extraocular movements intact. Conjunctiva/sclera: Conjunctivae normal. Pupils: Pupils are equal, round, and reactive to light. Cardiovascular: Rate and Rhythm: Normal rate and regular rhythm. Pulses: Normal pulses. Heart sounds: Normal heart sounds. No murmur heard. Pulmonary: Effort: Pulmonary effort is normal. No respiratory distress. Breath sounds: Normal breath sounds. Abdominal: General: Abdomen is flat. Palpations: Abdomen is soft. Tenderness: There is no abdominal tenderness. Musculoskeletal: General: No swelling. Cervical back: Neck supple. Skin: General: Skin is warm and dry. Capillary Refill: Capillary refill takes less than 2 seconds. Neurological: Mental Status: She is alert. Cranial Nerves: Facial asymmetry present. Sensory: Sensory deficit present. Motor: Weakness present. Psychiatric: Mood and Affect: Mood normal. Behavior: Behavior normal. MDM NIH Score Interval: Transfer Level of Consciousness (1a.): 0 LOC Questions (1b.): 0 LOC Commands (1c.): 0 Best Gaze (2.): 0 Visual (3.): 0 Facial Palsy (4.): 0 Motor Arm, Left (5a.): 0 Motor Arm, Right (5b.): 0 Motor Leg, Left (6a.): 0 Motor Leg, Right (6b.): 1 Limb Ataxia (7.): 0 Sensory (8.): 1 Best Language (9.): 0 Dysarthria (10.): 1 Extinction and Inattention (11.) (Formerly Neglect): 1 Total: 4 Medical Decision Making Pt is a 73 year old female with PMH CVA w/ residual right sided deficits, COPD, ESRD on hemodialysis, HTN, CHF, HLD, who presents via EMS as a stroke alert due to sudden onset right sided facial droop and trouble swallowing pills at 1635 today. Onset was witnessed by family members. Pt takes ASA, no other blood thinners. On exam, she is in no acute distress with stable vital signs. Right sided arm and leg weakness noted. Dysarthria noted. NIHSS 4. Differential diagnosis includes new CVA, recrudescence of prior CVA, intracranial bleed, stroke mimic, hypoglycemia. Pt was evaluated as a stroke alert with neurology. Noncontrast head CT with concern for intracranial bleed. Pt was NO GO for TNK due to intracranial bleed. Contacted neurosurgery for evaluation. Neurosurgery recs include Q1H neurochecks, 2 units platelets, admission to neuroICU. Additional radiology review revealed possible bleed may be calcification. Pt remains possible candidate for TNK if symptoms persist. Recommend hyperacute MRI to further evaluate. Will hold on platelet administration. Anticipate continued admission to neuroICU. Amount and/or Complexity of Data Reviewed Labs: ordered. Radiology: ordered. ECG/medicine tests: ordered. Risk Prescription drug management. Decision regarding hospitalization. Attending Summary of Care ED Course as of 02/23/242052 Time: 02/22 1901 Comment: Prolonged QTc. Will need mag once blood pressure stabilizes By: Radha Quintanilla MD Time: 02/22 1910 Comment: TRANSITION OF CARE: I have reviewed all pertinent vital signs, allergies, and history available in the chart. I, Suly Basilio MD, am taking signout from Dr. Webb (Resident). Summary: 73 y.o. female stroke page. Hx of prior stroke with R deficits. LKN 1635. Diff swallowing and R facial droop. HCT c/f bleed but now c/f calcification. NSGY consulted and recommended platelets, q1h NC. Hypotensive and got fluids. Pending: Hyperacute MRI. Hold platelets until MRI results. TBW NSGY. Dispo: Admission By: Ant Basilio MD Intracranial hemorrhage (HCC) Radha Quintanilla MD 02/23/242052 Cosigned by Fabiana Wilson MD at 02/23/2024 9:56 PM MOTION GRAPHICS DESIGNER ON GRAPHICS DESIGNER ON GRAPHICS DESIGNER Associated attestation - Fabiana Wilson MD - 02/23/2024 9:56 PM MOTION GRAPHICS DESIGNER I have seen and examined the patient on 02/23/2024. I agree with the findings and plan of care as documented in the resident's note. * Mame Montes RN - 02/23/2024 6:17 PM CST Patient arrives with flight with right facial droop, right sided weakness, and slurred speech. LKN 1635, was witnessed at that time by her son whom she lives with. ON GRAPHICS DESIGNER documented in this encounter Miscellaneous Notes * Consults, Subsequent - Tray Perez NP - 02/29/2024 10:00 AM MOTION GRAPHICS DESIGNER Renal Procedure Note Date of Service: 02/29/2024 I saw and evaluated the patient during HD. Indication was ESRD. My evaluation during the procedure showed the following: Pt tolerating HD well. BP 113/81, UF goal is 1.5L. Temp: [36.4 ??C (97.5 ??F)-37 ??C (98.6 ??F)] 36.4 ??C (97.5 ??F) Pulse: [64-94] 90 BP: (116-150)/(67-102) 116/80 Resp: [14-27] 18 SpO2: [91 %-100 %] 95 % Vitals: 02/29/24 0830 02/29/24 0845 02/29/24 0900 02/29/24 0915 BP: 135/89 135/78 119/88 116/80 BP Location: Patient Position: Pulse: 91 94 86 90 Resp: Temp: TempSrc: SpO2: Weight: Height: Date 02/28/24699 - 02/29/2465802/29/24699 - 03/01/24 0659 Shift 4166-2811 6351-0290 24 Hour Total 3264-8579 7850-8419 24 Hour Total INTAKE P.O. 240 240 Shift Total(mL/kg) 240(3.1) 240(3.2) OUTPUT Shift Total(mL/kg) NET 240 240 Weight (kg) 76.2 74.7 74.7 74.7 74.7 74.7 I have reviewed current medications and the following labs. alteplase, 2-4 mg, intra-catheter, Once aspirin, 81 mg, oral, Daily gabapentin, 100 mg, oral, TID heparin, 5,000 Units, subcutaneous, Q8H VARGHESE senna, 1 tablet, oral, BID sevelamer, 800 mg, oral, TID with meals sodium chloride 0.9%, 0.5-20 mL, intra-catheter, Q8H VARGHESE (ALT) Recent Labs Lab Units 02/28/24201202/27/24183702/26/242199 WBC K/cumm 8.5 8.5 12.9* HEMOGLOBIN g/dL 10.8* 11.5* 11.6* PLATELETS K/cumm 232 228 224 Recent Labs Lab Units 02/28/24201202/27/24183702/26/24219902/24/24200902/23/243 02/23/24 1840 SODIUM mmol/L 143 142 140 < > 139 140 POTASSIUM PLASMA mmol/L 4.6 4.5 3.9 < > 4.1 3.5 CHLORIDE mmol/L 105 104 102 < > 102 103 CO2 mmol/L 24 24 26 < > 28 27 BUN SERUM mg/dL 39* 26* 14 < > 18 16 CREATININE mg/dL 6.70* 5.80* 3.79* < > 4.00* 3.65* ALBUMIN g/dL -- -- -- -- 3.1* 2.9* CALCIUM mg/dL 9.3 9.2 9.0 < > 7.9* 7.5* MAGNESIUM mg/dL -- -- -- -- 2.1 2.0 PHOSPHORUS PLASMA mg/dL -- -- -- -- 4.4 -- < > = values in this interval not displayed. Nephrology FRUIT STUFFER Tray Perez cell# [phone] (Sun - Sun 7am - 4pm) Please call credit union examiner pager [phone] after 4pm, Sunday and Sunday Cosigned by Desire Barlow MD at 02/29/2024 4:17 PM MOTION GRAPHICS DESIGNER ON GRAPHICS DESIGNER ON GRAPHICS DESIGNER * Plan of Care - Violeta Shultz RN - 02/29/2024 8:00 AM MOTION GRAPHICS DESIGNER Problem: Physical Regulation Description: Module scope: This module is for [...] will be avoided or minimized Outcome: Progressing Flowsheets (Taken 02/29/2024 0800) Complications related to the disease process, condition or treatment will be avoided or minimized: Obtain informed consent Monitor vital signs Perform good hand hygiene Provide fluid volume management Monitor intake and output Assess for signs of edema Teach information regarding therapeutic regimen Monitor diagnostic test results Perform hemodialysis per policy Monitor pain status Implement infection prevention measures Manage dialysis access website/blog editor for complications Clinical Goals for Treatment: Patient will maintain hemodynamically stable. Prevent and manage potential signs and symptoms of hemodialysis complications. HD access sites, bloodlines and patient's face will be visible during dialysis. VS will be monitored and charted accordingly. ON GRAPHICS DESIGNER * Plan of Care - Melina Platt RN - 02/29/2024 1:49 AM CST Problem: Discharge Planning Goal: Understanding discharge needs will improve Outcome: Progressing Problem: Skin Integrity Impairment Risk Goal: Mobility will improve Outcome: Progressing Goal: Nutritional status will improve Outcome: Progressing Problem: Neurosensory Goal: Achieves stable or improved neurological status Outcome: Progressing Problem: Respiratory Goal: Achieves optimal ventilation and oxygenation Outcome: Progressing Problem: Skin/Tissue Integrity Goal: Skin integrity remains intact Outcome: Progressing Problem: Musculoskeletal Goal: Return mobility to safest level of function Outcome: Progressing ON GRAPHICS DESIGNER * Plan of Care - Roddy Mendez RN - 02/28/2024 6:13 PM CST Problem: Discharge Planning Goal: Understanding discharge needs will improve Outcome: Progressing Problem: Skin Integrity Impairment Risk Goal: Risk for impaired skin integrity will decrease Outcome: Progressing Problem: Musculoskeletal Goal: Return mobility to safest level of function Outcome: Progressing Problem: Sensory Goal: Ability to identify factors that increase pain levels will improve while working to decrease the patient's pain levels Outcome: Progressing Problem: Coping Goal: Ability to cope will improve Outcome: Progressing Goals: Clinical Goals for the Shift: VSS, Q4 neuro checks, modified barium swallow, dialysis, comfort and safety. ON GRAPHICS DESIGNER * ECIN Note - Mirna Coronado RN - 02/28/2024 10:36 AM CST Patient Information: Dialysis Data Past 7 days Pre-Dialysis Data last 7 days Machine Type 02/25 1430 Gross Machine # 02/25 1430 12 Machine Temperature 02/25 1430 36.5 ??C (97.7 ??F) Reverse Osmosis 02/25 143 Main Chlorine Test 02/25 143 <0.1 ppm Dialyzer 02/25 143 Revaclear Max Hemodialysis Conductivity 02/25 143 138 Manual Conductivity 02/25 1430 140 Sodium Modeling 02/25 1430 No UF Modeling 02/25 1430 No Dialysate Na (mEq/L) 02/25 143 138 mEq/L Dialysate K (mEq/L) 02/25 1430 3 mEq/L Dialysate Ca (mEq/L) 02/25 143 2.5 mEq/L Dialysate HCO3 (mEq/L) 02/25 143 35 mEq/L Prime 02/25 1430 Yes Pre-Treatment Comments 02/25 1430 pt resting Intra-Dialysis Data last 7 days Blood Flow Rate (mL/min) 02/25 1800 350 mL/min 02/25 1700 350 mL/min 02/25 1600 350 mL/min 02/25 1545 350 mL/min Arterial Pressure (mmHg) 02/25 1800 -255 mmHg 02/25 1700 -255 mmHg 02/25 1600 -231 mmHg 02/25 1545 -223 mmHg Venous Pressure (mmHg) 02/25 1800 156 02/25 1700 145 02/25 1600 148 02/25 1545 143 Transmembrane Pressure (mmHg) 02/25 1800 41 mmHg 02/25 1700 39 mmHg 02/25 1600 35 mmHg 02/25 1545 25 mmHg Intra-Hemodialysis Comments 02/25 1800 pt resting 02/25 1700 pt resting 02/25 1600 pt resting 02/25 1545 pt resting Complications 02/25 1830 Increased HR Interventions 02/25 1830 UF rate change 02/25 1545 Access lines reversed Post-Dialysis Data last 7 days Rinseback Volume (mL) 02/25 1845 300 mL On Line Clearance: eKdt/V 02/25 1845 1.37 Ekdt/V Dialyzer Clearance 02/25 1845 Heavily streaked Duration of Treatment (min) 02/25 1845 180 minutes Intake (mL) 02/25 1845 89 mL Output (mL) 02/25 1845 1889 mL Patient Response to Treatment 02/25 1845 fair, cramping at end of tx Post-Hemodialysis Comments 02/25 1845 goal not met ON GRAPHICS DESIGNER * ECIN Note - Mirna Coronado, RN - 02/28/2024 10:35 AM CST Patient Information: Meds and Admin Active Only All Meds/Most Recent Administrations ioversoL (OPTIRAY 350) syringe 125 mL [[id number]] Ordering Provider: Fabiana Wilson MD Status: Completed (Past End Date/Time) Ordered On: 02/23/241832 Starts/Ends: 02/23/241832 - 02/23/241827 Ordered Dose (Remaining/Total): 125 mL (0/1) Route: intravenous Frequency: Once in imaging Ordered Rate/Order Duration: -- / -- Line Med Link Info Comment Peripheral IV 02/23/24 20 G Right;Lateral Antecubital 02/23/241827 by Latrell Ambrose, RT -- Timestamps Action Dose Route Other Information 02/23/241827 Contrast Given 95 mL intravenous Performed by: Latrell Ambrose RT phenylephrine (INOCENTE-SYNEPHRINE) 1 mg/10 mL (100 mcg/mL) in sodium chloride 0.9% (premix) - ADS Override Pull [[id number]] Status: Dispensed (Past End Date/Time) Ordered On: 02/23/241835 Starts/Ends: 02/23/241835 - 02/24/2438 Ordered Dose (Remaining/Total): -- (1) Route: -- Frequency: -- Ordered Rate/Order Duration: -- / -- Admin Instructions: Created by cabinet override Note to pharmacy: Created by cabinet override For IV push, administer over 30 seconds. (No admins scheduled or recorded for this medication) sodium chloride 0.9% bolus 1,000 mL [[id number]] Ordering Provider: Fabiana Wilson MD Status: Completed (Past End Date/Time) Ordered On: 02/23/241841 Starts/Ends: 02/23/241842 - 02/23/241838 Ordered Dose (Remaining/Total): 1,000 mL (01) Route: intravenous Frequency: Once Ordered Rate/Order Duration: -- / -- Line Med Link Info Comment Peripheral IV 02/23/24 20 G Right;Lateral Antecubital 02/23/241838 by Mame Montes, DANIAL -- Peripheral IV 02/23/24 20 G Right;Lateral Antecubital 02/23/241850 by Mame Montes, DANIAL -- Timestamps Action Dose Route Other Information 02/23/24 1839 New Bag 1,000 mL intravenous Performed by: Mame Montes RN sodium chloride 0.9% bolus 1,000 mL [[id number]] Ordering Provider: Anay Guidry MD Status: Dispensed (Past End Date/Time) Ordered On: 02/23/241916 Starts/Ends: 02/23/241917 - 02/24/241917 Ordered Dose (Remaining/Total): 1,000 mL (03/19) Route: intravenous Frequency: Once Ordered Rate/Order Duration: -- / -- (No admins scheduled or recorded for this medication) senna (SENOKOT) tablet 1 tablet [[id number]] Ordering Provider: Parker Pulido MD Status: Dispensed Ordered On: 02/23/242056 Start: 02/23/242129 Ordered Dose (Remaining/Total): 1 tablet (--/--) Route: oral Frequency: 2 times daily Ordered Rate/Order Duration: -- / -- Admin Instructions: If able to swallow tablets. Hold for diarrhea. Timestamps Action Dose Route Other Information 02/28/24 0808 Given 1 tablet oral Performed by: Roddy Mendez RN Scanned Package: 1045-2860-25 sodium chloride 0.9% flush 0.5-20 mL [[id number]] Ordering Provider: Parker Pulido MD Status: Verified Ordered On: 02/23/242056 Start: 02/24/24 0000 Ordered Dose (Remaining/Total): 0.5-20 mL (--/--) Route: intra-catheter Frequency: Every 8 hours scheduled (alternate) Ordered Rate/Order Duration: -- / -- Admin Instructions: Flush volume based on line type and size. Timestamps Action Dose Route Other Information 02/28/24 0034 Given 10 mL intra-catheter Performed by: Tomas Martínez, DANIAL Scanned Package: [id number] sodium chloride 0.9% flush 0.5-20 mL [[id number]] Ordering Provider: Parker Pulido MD Status: Verified Ordered On: 02/23/242056 Start: 02/23/242049 Ordered Dose (Remaining/Total): 0.5-20 mL (--/--) Route: intra-catheter Frequency: As needed Ordered Rate/Order Duration: -- / -- Admin Instructions: Flush volume based on line type and size. Flush before and after each use. (No admins scheduled or recorded for this medication) Carrier Fluids for Secondary Infusion - 0.9% Sodium Chloride [[id number]] Ordering Provider: Parker Pulido MD Status: Verified Ordered On: 02/23/242056 Start: 02/23/242049 Ordered Dose (Remaining/Total): 30 mL (--/--) Route: intravenous Frequency: As needed Ordered Rate/Order Duration: -- / -- Admin Instructions: 0-250 ml/hr to flush line after IV infusions when no maintenance IV ordered. Infuse 30mL at the same rate as the secondary infusion. Run as primary IV, not intended for KVO. (No admins scheduled or recorded for this medication) acetaminophen (TYLENOL) tablet 650 mg [[id number]] Ordering Provider: Parker Pulido MD Status: Verified Ordered On: 02/23/242056 Start: 02/23/242050 Ordered Dose (Remaining/Total): 650 mg (--/--) Route: oral Frequency: Every 4 hours PRN Ordered Rate/Order Duration: -- / -- (No admins scheduled or recorded for this medication) aspirin chewable tablet 81 mg [[id number]] Ordering Provider: Parker Pulido MD Status: Dispensed Ordered On: 02/23/242205 Start: 02/23/242206 Ordered Dose (Remaining/Total): 81 mg (--/--) Route: oral Frequency: Daily Ordered Rate/Order Duration: -- / -- Timestamps Action Dose Route Other Information 02/28/24 0808 Given 81 mg oral Performed by: Roddy Mendez RN Scanned Package: [id number] ipratropium-albuteroL (DUO-NEB) 0.5-2.5 mg/3 mL nebulizer solution 3 mL [[id number]] Ordering Provider: Parker Pulido MD Status: Dispensed Ordered On: 02/23/242212 Start: 02/23/242211 Ordered Dose (Remaining/Total): 3 mL (--/--) Route: nebulization Frequency: Every 4 hours PRN (manager social responsibility) Ordered Rate/Order Duration: -- / -- Timestamps Action Dose Route Other Information 02/23/242307 Given 3 mL nebulization Performed by: Latrell Pollard RRT Scanned Package: [id number] sevelamer (RENVELA) tablet 800 mg [[id number]] Ordering Provider: Parker Pulido MD Status: Dispensed Ordered On: 02/23/242213 Start: 02/24/24799 Ordered Dose (Remaining/Total): 800 mg (--/--) Route: oral Frequency: 3 times daily with meals Ordered Rate/Order Duration: -- / -- Admin Instructions: Do not crush, chew, cut, dissolve, open or otherwise manipulate tablet/capsule. Timestamps Action Dose Route Other Information 02/28/24807 Given 800 mg oral Performed by: Roddy Mendez RN Scanned Package: 27455-997-79 gabapentin (NEURONTIN) capsule 100 mg [[id number]] Ordering Provider: Parker Pulido MD Status: Dispensed Ordered On: 02/23/242311 Start: 02/24/24899 Ordered Dose (Remaining/Total): 100 mg (--/--) Route: oral Frequency: 3 times daily Ordered Rate/Order Duration: -- / -- Timestamps Action Dose Route Other Information 02/28/24807 Given 100 mg oral Performed by: Roddy Mendez RN Scanned Package: [id number] heparin 5,000 unit/mL injection 5,000 Units [[id number]] Ordering Provider: Parker Pulido MD Status: Dispensed Ordered On: 02/23/242312 Start: 02/24/24 0000 Ordered Dose (Remaining/Total): 5,000 Units (--/--) Route: subcutaneous Frequency: Every 8 hours scheduled Ordered Rate/Order Duration: -- / -- Timestamps Action Dose Route / Site Other Information 02/28/24807 Given 5,000 Units subcutaneous Right Lower Abdomen Performed by: Roddy Mendez RN Scanned Package: 25840-835-46 calcium gluconate 2 g/100 mL in sodium chloride (premix) solution 2 g [[id number]] Ordering Provider: Parker Pulido MD Status: Completed (Past End Date/Time) Ordered On: 02/24/24 0014 Starts/Ends: 02/24/24 0045 - 02/24/24 0221 Ordered Dose (Remaining/Total): 2 g (0/1) Route: intravenous Frequency: Once Ordered Rate/Order Duration: -- / 60 Minutes Admin Instructions: Room temperature only Timestamps Action Dose / Duration Route Other Information 02/24/24 0121 New Bag 2 g 60 Minutes intravenous Performed by: Ezequiel Pickett RN Scanned Package: [id number] alteplase (CATHFLO ACTIVASE) 2-4 mg in sterile water 4 mL (1 mg/mL) syringe [[id number]] Ordering Provider: Tray Perez NP Status: Completed (Past End Date/Time) Ordered On: 02/26/24 1438 Starts/Ends: 02/26/24 1515 - 02/26/24 1446 Ordered Dose (Remaining/Total): 2-4 mg (0/1) Route: intra-catheter Frequency: Once Ordered Rate/Order Duration: -- / -- Admin Instructions: [place]well volume of catheter lumens post treatment. 2 mg/Lumen. Timestamps Action Dose Route Other Information 02/26/24 1446 Given 4 mg intra-catheter Performed by: Danya Lazar RN Scanned Package: [id number], [id number], [id number] alteplase (CATHFLO ACTIVASE) 2-4 mg in sterile water 4 mL (1 mg/mL) syringe [[id number]] Ordering Provider: Tray Perez NP Status: Completed (Past End Date/Time) Ordered On: 02/26/24 1555 Starts/Ends: 02/26/24 1630 - 02/26/24 1845 Ordered Dose (Remaining/Total): 2-4 mg (0/1) Route: intra-catheter Frequency: Once Ordered Rate/Order Duration: -- / -- Admin Instructions: Indwell volume of catheter lumens post treatment. 2 mg/Lumen. Timestamps Action Dose Route Other Information 02/26/24 1845 Given 4 mg intra-catheter Performed by: Danya Lazar RN Scanned Package: [id number], [id number], [id number] ramelteon (ROZEREM) tablet 8 mg [[id number]] Ordering Provider: Maggie Maciel MD Status: Dispensed Ordered On: 02/26/242107 Start: 02/26/242107 Ordered Dose (Remaining/Total): 8 mg (--/--) Route: oral Frequency: Nightly PRN Ordered Rate/Order Duration: -- / -- Timestamps Action Dose Route Other Information 02/26/242124 Given 8 mg oral Performed by: Tomas Martínez RN Scanned Package: [id number] sodium chloride 0.9% bolus 1,000 mL [[id number]] Ordering Provider: Cj Palacios MD Status: Completed (Past End Date/Time) Ordered On: 02/27/24929 Starts/Ends: 02/27/24 1015 - 02/27/24 0957 Ordered Dose (Remaining/Total): 1,000 mL (0/1) Route: intravenous Frequency: Once Ordered Rate/Order Duration: -- / -- Timestamps Action Dose Route Other Information 02/27/24 0957 New Bag 1,000 mL intravenous Performed by: Roddy Mendez RN Scanned Package: [id number] ON GRAPHICS DESIGNER * Plan of Care - Tomas Martínez RN - 02/28/2024 1:17 AM CST Clinical Goals for the Shift: VSS, Q4 neuro checks, monitor labs & I&Os, pain management, & promote comfort & safety Problem: Discharge Planning Goal: Understanding discharge needs will improve Outcome: Progressing Problem: Skin Integrity Impairment Risk Goal: Mobility will improve Outcome: Progressing Goal: Understanding of ways to prevent future skin breakdown will improve Outcome: Progressing Goal: Nutritional status will improve Outcome: Progressing Goal: Risk for impaired skin integrity will decrease Outcome: Progressing Problem: Neurosensory Goal: Achieves stable or improved neurological status Outcome: Progressing Problem: Respiratory Goal: Achieves optimal ventilation and oxygenation Outcome: Progressing Problem: Skin/Tissue Integrity Goal: Skin integrity remains intact Outcome: Progressing Problem: Musculoskeletal Goal: Return mobility to safest level of function Outcome: Progressing Problem: Genitourinary Goal: Absence of urinary retention Outcome: Progressing Problem: Physical Regulation Description: Module scope: This module is for [...] be avoided or minimized Outcome: Progressing Problem: Lack of Knowledge Goal: Ability to develop a pain control plan will improve Outcome: Progressing Problem: Medication Goal: Satisfaction with pain management medication regimen will improve Outcome: Progressing Problem: Sensory Goal: Ability to identify factors that increase pain levels will improve while working to decrease the patient's pain levels Outcome: Progressing Problem: Coping Goal: Ability to cope will improve Outcome: Progressing Problem: Health Behavior Goal: Identification of resources available to assist in meeting health care needs will improve Outcome: Progressing ON GRAPHICS DESIGNER * Plan of Julius - Makenna Stewart SLP - 02/27/2024 3:00 PM CST Problem: Swallowing Goal: LTG - Patient will tolerate the least restrictive diet consistency to allow for safe consumption of daily meals Outcome: Progressing Goal: STG - Patient will tolerate recommended food and liquid consistencies without clinical signs and symptoms of aspirations Outcome: Progressing Goal: STG - Patient will demonstrate safe oral intake to advance diet Outcome: Progressing Clinical Impression & Professional Recommendations Diet Solids Recommendation: Mechanical soft Diet Liquids Recommendations: Juliette thick Recommended Form of Medications: As tolerated Compensatory Strategies/Modifications: Single sips, Small bites, Double/repeat swallows to clear Postural Recommendations: Upright Assistance with feeding/swallowing: Full supervision with meals, Assistance with thickening liquid Specialty Instructions/Modifications: good oral care 2-3x/day including teeth brushing (gums and tongue) with suction while upright at 90 and with 100% assistance to improve the oral biome and reducethe risk of aspiration related complications (i.e., PNA) Pt seen this date for swallow tx; [address] floor. Pt agreeable for tx. Pt awake in bed with son present. ST reviewed FEES results, how to thicken liquids, where to buy thickener, etc. with pt and son. 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 Son also reports he suspects pt has undiagnosed COPD and pt and son endorse increased WOB during meals. ST reviewed strategies to improve coordination of breathing and swallowing. Pt implemented slow rate, small bites, etc.,with frequent reminders from ST. When using strategies, pt's son commented that her breathing is greatly improved. ST trained pt on strategies listed above and repeat swallows with liquids. Pt verbalized understanding, but required consistent verbal cueing to complete strategies. Suspect this is baseline given son's reported hx of memory loss. Pt self-administered 4 oz nectar-thick liquids via straw, purees, and solids. Pt had occasional coughing during PO intake, appears unrelated to swallow function. Recommend MBS to target advancement of PO if indicated by results. ON GRAPHICS DESIGNER * Plan of Care - Roddy Mendez RN - 02/27/2024 2:43 PM CST Problem: Discharge Planning Goal: Understanding discharge needs will improve Outcome: Progressing Problem: Skin/Tissue Integrity Goal: Skin integrity remains intact Outcome: Progressing Problem: Musculoskeletal Goal: Return mobility to safest level of function Outcome: Progressing Problem: Sensory Goal: Ability to identify factors that increase pain levels will improve while working to decrease the patient's pain levels Outcome: Progressing Problem: Coping Goal: Ability to cope will improve Outcome: Progressing Goals: Clinical Goals for the Shift: VSS, Q4 neuro checks, monitor labs & I&Os, pain management, & promote comfort & safety ON GRAPHICS DESIGNER * [facility] Note - Mirna Coronado RN - 02/27/2024 1:54 PM CST Images from the original note were not included. Patient Information: OT Eval and Treat Last 72 Hours OT Evaluation Row Name 02/26/24 1057 02/24/24 1317 Chart Reviewed -- Yes -KG Session Type -- Evaluation -KG OT Received On -- 02/24/24 -KG Safe Environment -- Arm band checked;Patient found sitting in chair;Gait belt utilized for all out of bed mobility -KG Subjective -- Agreeable to Therapy -KG Family/Caregiver Present -- Yes son -KG Occupational Therapy-Patient Goal -- pt did not specify goal but agreed with suggested goals presented -KG Precautions -- Fall risk -KG Type of Home -- House -KG Home Layout -- One level -KG Bathroom Shower/Tub -- Tub/shower unit -KG Bathroom Equipment -- Tub transfer bench -KG Home Mobility Equipment-Available -- Wheeled walker;Scooter -KG Home Mobility Equipment-Currently Using -- -- uses walker most of the time in the home; in community, sometimes uses scooter instead -KG Level of [place] -- Needs assistance with functional transfers;Needs assistance with homemaking;Independent with ADLs -KG Lives With -- Son -KG Receives Help From -- Family son -KG Driving -- No -KG Fall within the last 6 months -- Yes -KG Fall within the last 6 months comment -- fall resulting from rolling off her bed at home -KG Grooming: Where assessed -- Chair -KG Grooming: Level of assistance Maximum Assist -MP (r) CH (c) Maximum Assist minimal assist in sitting -KG LE Dressing: Where assessed -- Chair -KG LE Dressing: Level of assistance -- Moderate Assist -KG Pain Assessment -- No/denies pain -KG Current Vision -- Other (Comment) usually wears glasses but recently they were lost -KG Arousal/Alertness -- Alert;Appropriate responses to stimuli -KG Orientation -- Oriented to person;Oriented to place;Able to orient when provided with multiple choice options stated correct general time; chose correct month from 2 options. -KG Following Commands Follows one step commands consistently -MP (r) CH (c) Follows one step commands without difficulty -KG Compliance/Behavior -- Easy to engage -KG What year is it now? -- 4 -KG What month is it now? -- 3 -KG Repeat this name and address after me -- [place] [address] [place] [address] -KG Without looking at the clock, tell me what time it is -- 0 -KG Count aloud backwards from 20-1 -- 4 -KG Say the months of the year backwards in reverse order -- 4 -KG Repeat the name and address I asked you to remember -- 10 -KG [place] Total Score -- 25 -KG [place] -- Unable to complete standardized testing glasses not here -KG Unable to complete Trails A due to -- Does not have glasses -KG Unable to complete Trails B due to -- Does not have glasses -KG Unable to complete Trails B Verbal due to -- Cognition -KG Light Touch -- WFL BUE -KG Fine Motor -- -- pt with some diffiiculty manipulating items in R hand; per pt. and son, pt. has had some difficulty using R hand since previous stroke. -KG Serial Opposition -- Fair -KG Sitting Balance -- 1 -KG Arises -- 0 -KG Attempts to Arise -- 0 -KG Immediate Standing Balance (First 5 Seconds) -- 0 -KG Standing Balance -- 0 -KG Nudged -- 0 -KG Eyes Closed -- 0 -KG Turned 360 Degrees: Steadiness -- 0 -KG Turned 360 Degrees: Continuity of Steps -- 0 -KG Sitting Down -- 1 -KG Balance Score -- 2 -KG Transfer From 1 -- Sit -KG Transfer Type 1 -- To and from -KG Transfer to 1 -- Stand -KG Transfer Level of Assistance 1 -- Minimum Assist -KG RUE Assessment -- -- AROM grossly WFL; strength grossly 4/5 -KG LUE Assessment -- -- AROM grossly WFL; strength grossly 4+/5 -KG Putting on and taking off regular lower body clothing -- 2 -KG Bathing -- 2 -KG Toileting -- 2 -KG Putting on and taking off upper body clothing -- 3 -KG Personal Grooming -- 2 -KG Eating Meals -- 3 -KG Total Score (range 6-24) -- 14 -KG Score Interpretation -- 33.39 -KG Safe Environment End of Therapy Session -- Patient left in recliner;Chair alarm in place and activated;Call light within reach;Overbed table within reach -KG Problem List -- Decreased upper extremity strength;Decreased cognition;Decreased endurance;Decreased balance;Decreased fine motor control;Decreased functional mobility;Decreased gross motor control;Decreased ADL independence;Decreased IADL independence -KG Plan -- If this is the last note, consider this the discharge summary -KG OT Recommendation -- Inpatient Rehab Facility -KG Patient at high risk for -- Falls;Readmission;Injury due to decreased ability to care for self;Injury due to reduced functional status;Injury due to impaired cognition;Injury due to balance deficits;Injury at home as patient has not returned to prior level of function -KG Recommend Inpatient Rehab/Acute Rehab due to -- Not at baseline due to impaired ability to completeADLs;Impaired ability to complete functional mobility;Likely to return to the community at discharge with support system in place;Requires skilled therapy interventions to address neurological deficits;Requires multiple therapy disciplines to address functional deficits -KG OT Frequency during current admission -- 5-7x/wk -KG Treatment/Interventions during current admission -- ADL/IADL retraining;Balance Training;Cognitive retraining;Compensatory technique education;Functional activity;Functional mobility training;Functional transfer training;Therapeutic exercise;Therapeutic activity -KG OT - Next Appointment -- 02/25/24 -KG OT Evaluation Complete -- Yes -KG OT Start Time -- 1317 -KG OT Stop Time -- 1343 -KG OT Time Calculation (min) -- 26 min -KG User Dominguez (r) = Recorded By, (t) = Taken By, (c) = Cosigned By Initials Name Effective Dates CH Marimar Butterfield, OT 12/09/18 - MP Yanelis Plummer 11/12/23 - KG Jody Mcgrath, OT 12/09/18 - OT Treatment Row Name 02/27/24 0920 02/26/24 1057 02/25/24 1004 Session Type -- Treatment -MP (r) CH (c) Treatment - OT Received On -- 02/26/24 -MP (r) CH (c) 02/25/24 - Safe Environment -- Arm band checked;Patient found in supine;Gait belt utilized for all out of bed mobility -MP (r) CH (c) Arm band checked;Patient found in supine;Gait belt utilized for all out of bed mobility - Subjective -- Agreeable to Therapy -MP (r) CH (c) Agreeable to Therapy - OT Missed Visit Reason MD/RN Hold pt. reporting some dizziness in bed; BP measure lower than the past several; discussed with nurse, and nurse indicated to hold OT currently -KG -- -- Family/Caregiver Present -- No -MP (r) CH (c) No -CH Precautions -- Fall risk -MP (r) CH (c) Fall risk -CH Pain Assessment -- No/denies pain -MP (r) CH (c) No/denies pain -CH Overall Cognitive Status -- Impaired -MP (r) CH (c) -- Arousal/Alertness -- Alert -MP (r) CH (c) Alert;Appropriate responses to stimuli -CH Attention Span -- Attends with cues to redirect;Difficulty attending to directions -MP (r) CH (c) Distractability;Controlled environment -CH Current communication -- -- difficulty with word finding -MP (r) CH (c) -- Orientation -- Oriented to person;Oriented to place;Oriented to situation;Oriented to time;Able to orient when provided with multiple choice options -MP (r) CH (c) Oriented to person ox person with choices, month with choices. Notes situation as I fell denied notification of findings of imaging. -CH Following Commands -- -- Follows one step commands consistently -CH Safety Judgment -- Decreased awareness of need for safety -MP (r) CH (c) -- Insight -- Decreased awareness of deficits -MP (r) CH (c) Decreased awareness of deficits -CH Compliance/Behavior -- Easy to engage -MP (r) CH (c) Easy to engage -CH Static Sitting-Balance Support -- No upper extremity supported;Feet supported - MP (r) CH (c) No upper extremity supported -CH Static Sitting-Sitting Surface -- Bed -MP (r) CH (c) -- Static Sitting-Level of Assistance -- Close supervision -MP (r) CH (c) Close supervision -CH Static Sitting-Comment/# of Minutes -- A for balance, safety -MP (r) CH (c) -- Dynamic Sitting-Balance Support -- No upper extremity supported;Feet supported - MP (r) CH (c) -- Dynamic Sitting-Balance -- Forward lean;Reaching for objects;Reaching across midline -MP (r) CH (c)-- Dynamic Sitting-Sitting Surface -- Bed -MP (r) CH (c) -- Dynamic Sitting-Level of Assistance -- Minimum assistance -MP (r) CH (c) -- Dynamic Sitting-Comments -- A for balance, safety -MP (r) CH (c) -- Static Standing-Balance Support -- Bilateral upper extremity supported WW -MP (r) CH (c) Bilateral upper extremity supported - Static Standing-Standing Surface -- Floor -MP (r) CH (c) -- Static Standing-Level of Assistance -- Minimum assistance -MP (r) CH (c) Minimum assistance - Static Standing-Comment/# of Minutes -- A for balance, safety -MP (r) CH (c) -- Grooming: Where assessed -- Chair -MP (r) CH (c) Edge of bed - Grooming: Level of assistance -- -- Maximum Assist - Grooming: Assistance with -- Increased time to complete;Balance;Safety;Sequencing;Attending to task3/4 task total balance. assist for thoroughness -MP (r) CH (c) Manipulation of containers min for task, total for balance - LE Dressing: Where assessed -- Edge of bed -MP (r) CH (c) -- LE Dressing: Level of assistance -- Moderate Assist -MP (r) CH (c) -- LE Dressing: Assistance with -- Verbal cueing;Supervision/safety;Increased time to complete;Don/doff R sock;Pull up over hips;Balance;Safety;Sequencing;Attending to task 11/28 task, mod balance. assist for positioning R leg but able to maintain position and don sock. -MP (r) CH (c) -- Toileting: Where assessed -- -- -- standing at bedside - Toileting: Level of assistance -- -- Maximum Assist - Toileting: Assistance with -- -- Posterior;Anterior;Clothing management down;Clothing management up;Perineal hygiene - Room Mobility: Where assessed -- bed <>foot of bed<>chair -MP (r) CH (c) -- Health Management: Equipment -- Walker -MP (r) CH (c) -- Room Mobility: Level of Assistance -- Moderate Assist;Moderate Verbal Cues -MP (r) CH (c) -- Room Mobility comment -- A for decreased force production, controlled descent, assist for weight shift, verbal cues to lift R foot, verbal cues for safe use of WW, balance, safety -MP (r) CH (c) -- Bed Mobility -- Yes -MP (r) CH (c) -- Bed Mobility From 1 -- Supine -MP (r) CH (c) Supine -CH Bed Mobility Type 1 -- To -MP (r) CH (c) To and from -CH Bed Mobility to 1 -- Edge of bed -MP (r) CH (c) Short sit;Edge of bed -CH Level of Assistance 1 -- Standby Assist -MP (r) CH (c) Minimum Assist -CH Bed Mobility Comments 1 -- A for balance, safety, min verbal cues for sequencing -MP (r) CH (c) A for trunk elevation -CH Transfer -- Yes -MP (r) CH (c) -- Transfer From 1 -- Sit -MP (r) CH (c) Sit -CH Transfer Type 1 -- To and from -MP (r) CH (c) To and from -CH Transfer to 1 -- Stand -MP (r) CH (c) Stand -CH Technique 1 -- Sit to stand;Stand to sit -MP (r) CH (c) Stand to sit;Sit to stand -CH Transfer Device 1 -- Wheeled walker -MP (r) CH (c) Wheeled walker -CH Transfer Level of Assistance 1 -- Moderate Assist -MP (r) CH (c) Minimum Assist -CH Trials/Comments 1 -- 2 trials. A for decreased force production, controlled descent, mod verbal cues for safe use of WW, balance, safety -MP (r) CH (c) A for force production, balance, correct R lateral lean, increased time for hip extension -CH Trials/Comments 2 -- -- Upon standing, pt notes feeling of lightheadedness, returned to sitting, BPfound to have increased from pre activity vitals. Pt notes symptoms improved. Pt transferred from sitting to standing a second time and denied dizziness, pt cued to attempt weight shifting, however unable. pt laterally pivots to the left from foot to head of bed with ww with mod A for balance, controlled descent, weight shift. -CH Toilet Transfer From -- Bed -MP (r) CH (c) -- Toilet Transfer Type -- To -MP (r) CH (c) -- Toilet Transfer to -- -- chair as [facility] BS -MP (r) CH (c) -- Toilet Transfer Technique -- Ambulating -MP (r) CH (c) -- Toilet Transfer: Equipment -- Wheeled walker -MP (r) CH (c) -- Toilet Transfers -- Moderate assistance;Verbal cues -MP (r) CH (c) -- Toilet Transfers Comments -- A for decreased force production, controlled descent, assist for weight shift, verbal cues to lift R foot, mod verbal cues for safe use of WW, balance, safety -MP (r) CH (c) NT 2/2 safety concern - ROM/STRENGTH -- -- Yes - R Motion All Joints -- -- AAROM - R Position All Joints -- -- Supine - R Weight/Reps/Sets All Joints -- -- 5 reps of shoulder, elbow flexion/extension, digital flexion/extension, digital opposition - RUE Comments -- -- digital flexion 4/5, impaired coordination. Serial opposition required increasedtime and cues and demonstrated decreased accuracy - R Shoulder Flexion -- -- 3-/5 -CH R Elbow Flexion -- -- 4/5 -CH R Elbow Extension -- -- 4/5 -CH Putting on and taking off regular lower body clothing -- 2 -MP (r) CH (c) 2 -CH Bathing -- 2 -MP (r) CH (c) 2 -CH Toileting -- 2 -MP (r) CH (c) 2 -CH Putting on and taking off upper body clothing -- 3 -MP (r) CH (c) 3 -CH Personal Grooming -- 2 -MP (r) CH (c) 2 -CH Eating Meals -- 3 -MP (r) CH (c) 3 -CH Total Score (range 6-24) -- 14 -MP 14 -CH Score Interpretation -- 33.39 -MP (r) CH (c) 33.39 -CH Safe Environment End of Therapy Session -- Patient left in recliner;Chair alarm in place and activated;RN notified;Call light within reach;Overbed table within reach -MP (r) CH (c) Patient left supine in bed;Bed alarm in place and activated;RN notified;Call light within reach;Overbed table within reach;Bed in lowest position with wheels locked - Problem List -- Decreased upper extremity range of motion;Decreased upper extremity strength;Decreased safe judgment during ADL;Decreased cognition;Decreased endurance;Decreased balance;Decreased fine motor control;Decreased functional mobility;Decreased ADL independence;Decreased IADL independence;Decreased gross motor control;Decreased UE function;Decreased response to environment;Poor/Decreased functional positioning;Decreased ROM;Decreased upper extremity function;Visual deficit -MP (r) CH (c) Decreased upper extremity strength;Decreased safe judgment during ADL;Decreased cognition;Decreased endurance;Visual deficit;Decreased balance;Decreased fine motor control;Decreased functional mobility;Decreased ADL independence;Decreased IADL independence;Decreased UE function;Decreased trunk control for functional activities - Barriers to Discharge -- Current Mobility Status;Current ADL Status;Cognition;Decreased safety awareness - (r) CH (c) -- Plan -- Continue with current plan;If this is the last note, consider this the discharge summary - (r) CH (c) Continue with current plan;If this is the last note, consider this the discharge summary - OT Recommendation -- Inpatient Rehab Facility -MP (r) CH (c) Inpatient Rehab Facility - Patient at high risk for -- Falls;Readmission;Injury due to decreased ability to care for self;Injury due to reduced functional status;Injury due to impaired cognition;Injury due to balance deficits;Injury at home as patient has not returned to prior level of function;Prolonged dependence for self care tasks -MP (r) CH (c) Falls;Readmission;Injury due to decreased ability to care for self;Injury due to impaired cognition;Injury due to balance deficits;Injury due to reduced functional status;Developing impaired skin integrity;Injury at home as patient has not returned to prior level of function;Prolonged dependence for self care tasks - Recommend Inpatient Rehab/Acute Rehab due to -- Ability to actively participate in intensive therapy 3 hours/day, 5 days/week or 900 minutes per week;Highly motivated to participate in therapy;Not atbaseline due to impaired ability to complete ADLs;Impaired ability to complete functional mobility;Likely to return to the community at discharge with support system in place;Requires greater than 25% physical assistance with most mobility tasks;Requires greater than 25% physical assistance with most ADL tasks;Requires multiple therapy disciplines to address functional deficits;Patient and caregiver require specialized skilled training due to new level of function/diagnosis;Requires skilled therapy interventions to address neurological deficits -MP (r) CH (c) Ability to actively participate in intensive therapy 3 hours/day, 5 days/week or 900 minutes per week;Highly motivated to participatein therapy;Not at baseline due to impaired ability to complete ADLs;Requires greater than 25% physical assistance with most ADL tasks;Impaired ability to complete functional mobility;Likely to returnto the community at discharge with support system in place;Requires greater than 25% physical assistance with most mobility tasks;Requires multiple therapy disciplines to address functional deficits;R equires skilled therapy interventions to address neurological deficits - OT Frequency during current admission -- 5-7x/wk -MP (r) CH (c) 5-7x/wk - Treatment/Interventions during current admission -- ADL/IADL retraining;Balance Training;Bed mobility;Compensatory technique education;Cognitive retraining;Endurance training;Equipment eval/education;Functional activity;Functional mobility training;Functional transfer training;Neuromuscular re-education;Parent/caregiver training and education;Positioning;Positioning equipment;Range of motion;Strengthening;Therapeutic exercise;Therapeutic activity;Transfer training;Upper extremity motor function/functional skills;Visual motor/perceptual skills;Visual skills -MP (r) CH (c) ADL/IADL retraining;Balance Training;Bed mobility;Cognitive retraining;Compensatory technique education;Endurance training;Functional activity;Functional mobility training;Functional transfer training;Neuromuscular re-education;Midline orientation;Positioning;Parent/caregiver training and education;Range of motion;Sensorimotor skills;Strengthening;Therapeutic activity;Therapeutic exercise;Transfer training;Upper extremity motor function/functional skills - Progress during current admission -- Progressing toward goals -MP (r) CH (c) Slow progress, decreased activity tolerance limited by dizziness this session - OT - Next Appointment -- 02/27/24 -MP (r) CH (c) 02/26/24 - OT Evaluation Complete -- Yes -MP (r) CH (c) -- OT Start Time -- 1057 -MP (r) CH (c) 1004 -CH OT Stop Time -- 1121 -MP (r) CH (c) 1033 -CH OT Time Calculation (min) -- 24 min -MP 29 min - User Dominguez (r) = Recorded By, (t) = Taken By, (c) = Cosigned By Initials Name Effective Dates Marimar Butterfield OT 12/09/18 - Yanelis Briceño 11/12/23 - KG Jody Mcgrath, OT 12/09/18 - OT Notes 02/25/2024 10:56 AM Progress Notes signed by Marimar Butterfield, OT , OT Eval and Treat Last Documented OT ASSESSMENT FLOWSHEET LAST DOCUMENTED (most recent) OT Evaluation - 02/27/24 0920 General OT Missed Visit Reason MD/RN Hold pt. reporting some dizziness in bed; BP measure lower than the past several; discussed with nurse, and nurse indicated to hold OT currently OT TREATMENT FLOWSHEET LAST DOCUMENTED (most recent) OT Treatment - 02/27/24 0920 General OT Missed Visit Reason MD/RN Hold pt. reporting some dizziness in bed; BP measure lower than the past several; discussed with nurse, and nurse indicated to hold OT currently OT Notes 02/25/2024 10:56 AM Progress Notes signed by Marimar Butterfield, OT , PT Eval and Treat Last 72 Hours PT Evaluation Row Name 02/24/24 0910 Chart Reviewed Yes -LG Session Type Evaluation -LG Safe Environment Arm band checked;Session completed bedside;Gait belt utilized for all out of bed mobility;Patient found in supine -LG Subjective Agreeable to Therapy -LG Family/Caregiver Present No -LG Physical Therapy-Patient Goal Pt wants to be able to walk on her own and go home. -LG Precautions Fall risk -LG Type of Home House -LG Home Layout Stairs with rails -LG # of Steps-Railed 6 -LG Home Access Stairs to enter with rails -LG Entrance Stairs-Number of Steps 3 -LG Home Mobility Equipment-Available Wheeled walker -LG Home Mobility Equipment-Currently Using Wheeled walker -LG Level of [place] Independent functional transfers;Independent with ambulation -LG Lives With Son -LG Receives Help From Family news department intern -LG Fall within the last 6 months Yes -LG Fall within the last 6 months comment 2 times due to LOB -LG Pain Assessment No/denies pain -LG Arousal/Alertness Alert;Appropriate responses to stimuli -LG Orientation Oriented X4 (person, place, time, situation);Able to orient when provided with multiplechoice options -LG Following Commands Follows one step commands without difficulty -LG Light Touch WFL B LE -LG Sensation Comments bilateral LE skin integrity intact -LG Balance Tests Yes -LG 1. Sitting to Standing 1 -LG 2. Standing Unsupported 0 -LG 3. Sitting with Back Unsupported but Feet Supported on Floor or on a Stool 3 -LG 4. Standing to Sitting 0 -LG 5. Transfers 1 -LG 6. Standing Unsupported with Eyes Closed 0 -LG 7. Standing Unsupported with Feet Together 0 -LG 8. Reach Forward with Outstretched Arm While Standing 0 -LG 9. Pooling Operator Object from Floor from a Standing Position 0 -LG 10. Turning to Look Behind Over Left and Right Shoulders While Standing 0 -LG 11. Turn 360 Degrees 0 -LG 12. Place Alternate Foot on Step or Stool While Standing Unsupported 0 -LG 13. Standing Unsupported One Foot in Front 0 -LG 14. Standing on One Leg 0 -LG Nicholson Balance Score 5 -LG Balance Yes -LG Static Sitting-Balance Support Feet supported;Bilateral upper extremity supported -LG Static Sitting-Sitting Surface Bed -LG Static Sitting-Level of Assistance Close supervision -LG Static Standing-Balance Support Bilateral upper extremity supported -LG Static Standing-Standing Surface Floor -LG Static Standing-Level of Assistance Minimum assistance -LG Bed Mobility Yes -LG Bed Mobility From 1 Supine -LG Bed Mobility Type 1 To -LG Bed Mobility to 1 Edge of bed -LG Level of Assistance 1 Minimum Assist -LG Bed Mobility Comments 1 assist with elevation of trunk -LG Transfer Yes -LG Transfer From 1 Sit -LG Transfer Type 1 To and from -LG Transfer to 1 Stand -LG Technique 1 Sit to stand;Stand to sit -LG Transfer Device 1 Hand held assist x2 -LG Transfer Level of Assistance 1 Minimum Assist -LG Trials/Comments 1 decreased force production, decreased balance -LG Transfer From 2 Bed -LG Transfer Type 2 To -LG Transfer to 2 Chair with arms -LG Technique 2 Stand and step -LG Transfer Device 2 Hand held assist x2 -LG Transfer Level of Assistance 2 Minimum Assist -LG Trials/Comments 2 decreased force production, decreased balance -LG Ambulation Yes -LG Distance (ft) 1 18 -LG Surface 1 Level tile -LG Device 1 Hand held assist x2 -LG Assistance 1 Minimum Assist -LG Gait: Requires assist with 1 Weight shifting;Maintaining balance -LG Gait: Requires verbal cues to 1 Increase step length;Pace activity;Utilize appropriate gait sequencing -LG Gait Deviations 1 Italia - decreased;Step length - decreased;Turns - difficulty;Weight shift - decreased -LG Ambulation Comments 1 Gait speed not performed due to distance ambulated -LG Stairs No -LG RUE Assessment WFL -LG LUE Assessment WFL -LG RLE Assessment WFL -LG RLE Comments 4/5 throughout -LG LLE Assessment WFL -LG How much difficulty does the patient have: Turning over in bed 3 -LG How much difficulty does the patient currently have: Sitting down and standing up from a chair witharms? 3 -LG How much difficulty does the patient have: Moving from lying on back to sitting on the side of the bed? 3 -LG How much difficulty does the patient have: Moving to and from a bed to a chair including wheelchair? 3 -LG How much help does the patient currently need: Walk in hospital room? 3 -LG How much help from another person does the patient currently need: Climbing 3-5 steps with a railing? 2 -LG Total 6 Click Score (range 6-24) 17 -LG Score Interpretation 39.67 -LG Safe Environment End of Therapy Session Call light within reach;Patient left in chair;Chair alarm in place and activated -LG Problem List Reduced mobility;Gait deviations;Decreased strength;Decreased range of motion;Decreased endurance;Impaired balance -LG Problem List Comments PT Diagnosis: hyperacute onset right sided weakness, right facial droop, and dysarthria results in above listed activity deficits and impairments which prevent full participation in home and community mobility - Plan If this is the last note, consider this the discharge summary;Plan of care initiated - PT Recommendation/Plan Inpatient Rehab Facility -LG Patient at high risk for Falls;Injury due to reduced functional status;Injury due to balance deficits - Recommend Inpatient Rehab/Acute Rehab due to Ability to actively participate in intensive therapy 3hours/day, 5 days/week or 900 minutes per week;Impaired ability to complete functional mobility;Requires greater than 25% physical assistance with most mobility tasks;Requires multiple therapy disciplines to address functional deficits;Requires skilled therapy interventions to address neurological deficits -LG PT Frequency during current admission 5-7x/wk -LG Treatment/Interventions during current admission Balance Training;Bed mobility;Functional activity;Functional transfer training;Gait training;Neuromuscular re-education;Strengthening;Therapeutic activ ity;Therapeutic exercise - PT Evaluation Complete Yes -LG PT Start Time 909 -LG PT Stop Time 932 - PT Time Calculation (min) 23 min - User Dominguez (r) = Recorded By, (t) = Taken By, (c) = Cosigned By Initials Name Effective Dates LG Carolina Oakley Lance, PT 12/09/18 - PT TREATMENT (Last 168 Hours) PT Treatment Row Name 02/26/24 4939 PT Last Visit Session Type Treatment -SM Safe Environment Arm band checked;Patient found sitting in chair;Session completed bedside;Gait belt utilized for all out of bed mobility -SM Subjective Agreeable to Therapy -SM Family/Caregiver Present No -SM Precautions Precautions Fall risk -SM Pain Assessment Pain Assessment No/denies pain -SM Cognition Arousal/Alertness Alert -SM Orientation Oriented to person;Oriented to place;Oriented to time;Able to orient when provided withmultiple choice options;Oriented to situation - Following Commands Follows multistep commands with repetition - Compliance/Behavior Easy to engage -SM Static Sitting Balance Static Sitting-Balance Support No upper extremity supported -SM Static Sitting-Sitting Surface Bed - Static Sitting-Level of Assistance Close supervision -SM Static Sitting-Comment/# of Minutes for safety -SM Static Standing Balance Static Standing-Balance Support Bilateral upper extremity supported on ww -SM Static Standing-Standing Surface Floor -SM Static Standing-Level of Assistance Minimum assistance -SM Static Standing-Comment/# of Minutes min A for balance/safety -SM Transfers Transfer Yes -SM Transfer 1 Transfer From 1 Sit -SM Transfer Type 1 To and from -SM Transfer to 1 Stand - Technique 1 Sit to stand;Stand to sit -SM Transfers 2 Transfer From 2 Bed;Chair with arms - Transfer Type 2 To and from -SM Transfer to 2 Bed - Technique 2 Stand and step - Transfer Device 2 Wheeled walker - Transfer Level of Assistance 2 Minimum Assist -SM Trials/Comments 2 min A for balance/safety -SM Ambulation 1 Distance (ft) 1 12 -SM Surface 1 Level tile - Device 1 Wheeled walker - Assistance 1 Minimum Assist -SM Gait: Requires assist with 1 Maintaining balance;Weight shifting - Gait: Requires verbal cues to 1 Increase step length;Increase base of support -SM Gait Deviations 1 [place] - decreased;Base of support - decreased;Heel strike - decreased;Step length - decreased;Posture - flexed -SM Basic Mobility - 6 Click How much difficulty does the patient have: Turning over in bed 3 -SM How much difficulty does the patient currently have: Sitting down and standing up from a chair witharms? 2 -SM How much difficulty does the patient have: Moving from lying on back to sitting on the side of the bed? 3 -SM How much difficulty does the patient have: Moving to and from a bed to a chair including wheelchair? 3 -SM How much help does the patient currently need: Walk in hospital room? 3 -SM How much help from another person does the patient currently need: Climbing 3-5 steps with a railing? 2 -SM Total 6 Click Score (range 6-24) 16 -SM Score Interpretation 38.32 -SM Safe Environment End of Therapy Session Safe Environment End of Therapy Session Patient left in recliner;Chair alarm in place and activated;Call light within reach;Overbed table within reach - Assessment Prognosis Good -SM Problem List Reduced mobility;Decreased strength;Gait deviations;Impaired balance - Barriers to Discharge Current Mobility Status - Plan Plan Continue with current plan;If this is the last note, consider this the discharge summary - Recommendation/Plan PT Recommendation/Plan Inpatient Rehab Facility - Patient at high risk for Falls;Readmission;Injury due to decreased ability to care for self;Injury due to reduced functional status;Injury due to balance deficits;Injury at home as patient has not returned to prior level of function - Recommend Inpatient Rehab/Acute Rehab due to Ability to actively participate in intensive therapy 3hours/day, 5 days/week or 900 minutes per week;Highly motivated to participate in therapy;Not at baseline due to impaired ability to complete ADLs;Impaired ability to complete functional mobility;Likely to return to the community at discharge with support system in place;Requires greater than 25% physical assistance with most mobility tasks - PT Frequency during current admission 5-7x/wk - Treatment/Interventions during current admission Balance Training;Bed mobility;Endurance training;Functional activity;Functional transfer training;Gait training;Neuromuscular re-education;Stair traini ng;Strengthening;Therapeutic activity;Therapeutic exercise;Transfer training - Progress during current admission Progressing toward goals - PT Time Calculation PT Start Time 1159 - PT Stop Time 1222 - PT Time Calculation (min) 23 min - User Dominguez (r) = Recorded By, (t) = Taken By, (c) = Cosigned By Initials Name Effective Dates Marco A Courtney, PT 01/16/24 - PT Notes 02/26/2024 1:03 PM Progress Notes signed by Marco A Courtney, PT , PT Eval and Treat Last Documented OT ASSESSMENT FLOWSHEET LAST DOCUMENTED (most recent) PT Evaluation - 02/27/24 0800 Cognition Orientation Oriented to person;Oriented to time PT TREATMENT (most recent) PT Treatment - 02/27/24 0800 Cognition Orientation Oriented to person;Oriented to time PT Notes 02/26/2024 1:03 PM Progress Notes signed by Marco A Courtney, PT , [employer] Eval and Treat Last 72 Hours [employer]GER [employer] Evaluation No documentation. [employer] Treatment Row Name 02/26/24 1344 Session Type Treatment -ED [employer] Received On 02/26/24 -ED Safe Environment Session completed bedside -ED Subjective Agreeable to Therapy -ED Family/Caregiver Present No -ED Pain Assessment 0-10 -ED Pain Score 0 - No pain -ED Comments Education completed, see POC for additional information -ED Services Skilled MANAGER [employer] services to address the above deficits -ED Safe Environment End of Therapy Session Patient left supine in bed -ED [employer]NAGER [employer] Recommendation (Add'l Services) Inpatient Rehab Facility -ED Treatment/Interventions during current admission Swallowing -ED [employer] Frequency of Services during current admission 2-4x/wk -ED Diet Solids Recommendation Mechanical soft -ED Diet Liquids Recommendations Juliette thick -ED Recommended Form of Medications As tolerated -ED Assistance with feeding/swallowing One to one assist with meals;Assistance with thickening liquid -ED Compensatory Strategies/Modifications Single sips;Small bites;Double/repeat swallows to clear -ED Postural Recommendations Upright 90 degrees -ED Swallow- Next Appointment 02/27/24 -ED [employer] Start Time 1344 -ED [employer] Stop Time 1352 -ED [employer]NAGER [employer] Time Calculation (min) 8 min -ED User Dominguez (r) = Recorded By, (t) = Taken By, (c) = Cosigned By Initials Name Effective Dates ED Makenna Stewart, [employer] 04/12/23 - Clinical Swallow Study Row Name 02/26/24 0854 Alertness 10 Cooperation 10 Auditory Comprehension 6 Respiration 8 Respiratory Rate (for swallow) 5 Aphasia 3 Apraxia 5 Dysarthria 4 Saliva 5 Lip Seal 5 Tongue Movement 10 Tongue Strength 10 Tongue Coordination 10 Gag 1 did not assess Palate 8 Cough Reflex 5 Voluntary Cough 10 Voice 10 Trach 10 Oral Preparation 10 Bolus Clearance 8 Oral Transit 8 Delay consistency Solids Pharyngeal Phase 8 Pharyngeal Response 5 MASA Score 174 Dysphagia Mild dysphagia (168-177) Aspiration Risk No aspiration risk (170-200) [employer] Notes Notes from 02/25/24 through 02/27/24 No notes of this type exist for this encounter. , [employer] Eval and Treat Last Documented MANAGER [employer] ASSESSMENT (most recent) [employer] Evaluation - 02/27/24 0800 Cognition Orientation Oriented to person;Oriented to time [employer]NAGER [employer] SWALLOW STUDY (most recent) Clinical Swallow Study - 02/26/24 0854 [place] Assessment of Swallowing Ability (MASA) Alertness 10 Cooperation 10 Auditory Comprehension 6 Respiration 8 Respiratory Rate (for swallow) 5 Aphasia 3 Apraxia 5 Dysarthria 4 Saliva 5 Lip Seal 5 Tongue Movement 10 Tongue Strength 10 Tongue Coordination 10 Gag 1 did not assess Palate 8 Cough Reflex 5 Voluntary Cough 10 Voice 10 Trach 10 Oral Preparation 10 Bolus Clearance 8 Oral Transit 8 Delay consistency Solids Pharyngeal Phase 8 Pharyngeal Response 5 MASA Score 174 Dysphagia Mild dysphagia (168-177) Aspiration Risk No aspiration risk (170-200) [employer] TREATMENT (most recent) [employer] Treatment - 02/26/241999 Pain Assessment Pain Assessment 0-10 Pain Score 0 - No pain [employer] Notes Notes from 02/25/24 through 02/27/24 No notes of this type exist for this encounter. ON GRAPHICS DESIGNER * Plan of Care - Mirna Coronado RN - 02/27/2024 1:54 PM CST Account Adjuster noted patient has been recommended for Inpatient Rehab by PT/OT. Account Adjuster proactively initiated a referral to [facility] preferred Inpatient Rehab Facility - [facility]. Account Adjuster met with the patient/family at bedside to discuss recommendations by therapy and to work on a potential discharge disposition plan. Account Adjuster provided education to patient/family on the rehabilitation process. Patient reported he/she was interested in placement for rehabilitation. emergency planning and response manager provided a list of additional potential Inpatient Rehab Facility choices to patient and family. [facility] and family [facility] sent out additional referrals via [facility]. CM awaiting acceptance from an Inpatient RehabFacility and will continue to work on discharge planning with patient and family. ON GRAPHICS DESIGNER * Consults, Subsequent - Tray Perez NP - 02/27/2024 11:22 AM MOTION GRAPHICS DESIGNER NEPHROLOGY SUBSEQUENT INPATIENT VISIT NOTE REASON FOR ADMISSION: Right-sided weakness INTERVAL HISTORY: No events overnight. Pt denies pain, SOB, fevers or chills REVIEW OF SYSTEMS: As per HPI. All other systems are negative. ESRD DIALYSIS HISTORY: Dialysis History: In center hemodialysis with tunneled catheter access. Dialysis Start Date: Dialysis Days: Dialysis Center: [facility] Medicine: Dialysis Prescription: Time:3.5hrs CURRENT MEDICATIONS: SCHEDULED MEDS CONTINUOUS MEDS PRN MEDS aspirin, 81 mg, oral, Daily gabapentin, 100 mg, oral, TID heparin, 5,000 Units, subcutaneous, Q8H VARGHESE senna, 1 tablet, oral, BID sevelamer, 800 mg, oral, TID with meals sodium chloride 0.9%, 0.5-20 mL, intra-catheter, Q8H VARGHESE (ALT) acetaminophen Saline lock IV AND sodium chloride 0.9% AND sodium chloride 0.9% AND sodium chloride 0.9% ipratropium-albuteroL ramelteon PHYSICAL EXAM: VITALS: BP 102/77 Pulse 81 Temp 37.2 ??C (98.9 ??F) (Oral) Resp 17 Ht 170.2 cm (5' 7 ) Wt67.3 kg (148 lb 5.9 oz) SpO2 96% BMI 23.24 kg/m?? Temp: [36.4 ??C (97.5 ??F)-37.2 ??C (98.9 ??F)] 37.2 ??C (98.9 ??F) Pulse: [69-106] 81 BP: (83-150)/(51-108) 102/77 Resp: [13-27] 17 SpO2: [88 %-99 %] 96 % Temp Min: 36.4 ??C (97.5 ??F) Max: 37.2 ??C (98.9 ??F) Pulse Min: 69 Max: 106 BP Min: 83/51 Max: 150/95 Resp Min: 13 Max: 27 SpO2 Min: 88 % Max: 99 % I/O last 3 completed shifts: In: 409 [I.V.:320; Other:89] Out: 1888 [Other:188] General: well appearance, not in distress, vitals as above HEENT: AT, normocephalic, anicteric CVS: S1, S2 present no murmur noted Respiratory: Bilateral equal air entry, with vesicular breathing, no added sounds. Abdomen: Soft, lax not tender with positive bowel sounds. Neurology: Alert awake and oriented x3. Extremity: No lower extremity edema. Skin: intact, no rash or lesions noted Psych: cooperative, calm Dialysis access: Left IJ dialysis catheter with no swelling or erythema. LABORATORY DATA: I have reviewed the following data. Recent Labs Lab Units 02/26/24219902/25/24214402/24/242009 WBC K/cumm 12.9* 11.5* 10.0* HEMOGLOBIN g/dL 11.6* 10.8* 10.4* PLATELETS K/cumm 224 244 228 Recent Labs Lab Units 02/26/24219902/25/[id number]/24/[id number]/23/24212202/23/24 1840 SODIUM mmol/L 140 141 141 139 140 POTASSIUM PLASMA mmol/L 3.9 4.7 4.8 4.1 3.5 CHLORIDE mmol/L 102 106 100 102 103 CO2 mmol/L 26 25 27 28 27 BUN SERUM mg/dL 14 36* 32* 18 16 CREATININE mg/dL 3.79* 6.26* 5.37* 4.00* 3.65* ALBUMIN g/dL -- -- -- 3.1* 2.9* CALCIUM mg/dL 9.0 9.7 9.3 7.9* 7.5* MAGNESIUM mg/dL -- -- -- 2.1 2.0 PHOSPHORUS PLASMA mg/dL -- -- -- 4.4 -- Lab Results Component Value Date CALCIUM 9.0 02/26/2024 CAION 4.55 02/24/2024 PHOS 4.4 02/23/2024 No results found for: IRON , TIBC , TRANSFERSAT , FERRITIN RADIOLOGY: DIAGNOSTIC DATA: IMPRESSION AND RECOMMENDATION: ESRD Pt schedule is TTS HD yesterday UF=1.5L Anemia of chronic kidney disease Monitor Hbg level=11.6 Transfuse RBCs <7.0 per primary team Hbg at goal Renal osteodystrophy Monitor phos and calcium level Low phos renal diet Renvela 800mg TID with meals Stroke pt presented with right sided weakness Management per primary team Nephrology FRUIT STUFFER Tray Perez cell# [phone] (Mon - Sun 7am - 4pm) Please call credit union examiner pager [phone] after 4pm, Sunday and Sunday Cosigned by Desire Barlow MD at 02/27/2024 8:55 PM MOTION GRAPHICS DESIGNER ON GRAPHICS DESIGNER ON GRAPHICS DESIGNER * Plan of Care - Tomas Martínez RN - 02/27/2024 6:32 AM CST Clinical Goals for the Shift: VSS, Q4 neuro checks, monitor labs & I&Os, pain management, & promote comfort & safety Problem: Discharge Planning Goal: Understanding discharge needs will improve 02/27/2024630 by Tomas Martínez RN Outcome: Progressing 02/27/2024232 by Tomas Martínez RN Outcome: Progressing Problem: Skin Integrity Impairment Risk Goal: Mobility will improve 02/27/2024630 by Tomas Martínez RN Outcome: Progressing 02/27/2024232 by Tomas Martínez RN Outcome: Progressing Goal: Understanding of ways to prevent future skin breakdown will improve 02/27/2024630 by Tomas Martínez RN Outcome: Progressing 02/27/2024232 by Tomas Martínez RN Outcome: Progressing Goal: Nutritional status will improve 02/27/2024630 by Tomas Martínez RN Outcome: Progressing 02/27/2024232 by Tomas Martínez RN Outcome: Progressing Goal: Risk for impaired skin integrity will decrease 02/27/2024630 by Tomas Martínez RN Outcome: Progressing 02/27/2024232 by Tomas Martínez RN Outcome: Progressing Problem: Neurosensory Goal: Achieves stable or improved neurological status 02/27/2024630 by Tomas Martínez RN Outcome: Progressing 02/27/2024232 by Tomas Martínez RN Outcome: Progressing Problem: Respiratory Goal: Achieves optimal ventilation and oxygenation 02/27/2024630 by Tomas Martínez RN Outcome: Progressing 02/27/2024232 by Tomas Martínez RN Outcome: Progressing Problem: Skin/Tissue Integrity Goal: Skin integrity remains intact 02/27/2024630 by Tomas Martínez RN Outcome: Progressing 02/27/2024232 by Tomas Martínez RN Outcome: Progressing Problem: Musculoskeletal Goal: Return mobility to safest level of function 02/27/2024630 by Tomas Martínez RN Outcome: Progressing 02/27/2024232 by Tomas Martínez RN Outcome: Progressing Problem: Genitourinary Goal: Absence of urinary retention 02/27/2024630 by Tomas Martínez RN Outcome: Progressing 02/27/2024232 by Tomas Martínez RN Outcome: Progressing Problem: Physical Regulation Description: Module scope: This module is for [...] or treatment will be avoided or minimized 02/27/2024630 by Tomas Martínez RN Outcome: Progressing 02/27/2024232 by Tomas Martínez RN Outcome: Progressing Problem: Lack of Knowledge Goal: Ability to develop a pain control plan will improve 02/27/2024630 by Tomas Martínez RN Outcome: Progressing 02/27/2024232 by Tomas Martínez RN Outcome: Progressing Problem: Medication Goal: Satisfaction with pain management medication regimen will improve 02/27/2024630 by Tomsa Martínez RN Outcome: Progressing 02/27/2024232 by Tomas Martínez RN Outcome: Progressing Problem: Sensory Goal: Ability to identify factors that increase pain levels will improve while working to decrease the patient's pain levels 02/27/2024630 by Tomas Martínez RN Outcome: Progressing 02/27/2024232 by Tomas Martínez RN Outcome: Progressing Problem: Coping Goal: Ability to cope will improve 02/27/2024630 by Tomas Martínez RN Outcome: Progressing 02/27/2024 023 by Tomas Martínez RN Outcome: Progressing Problem: Health Behavior Goal: Identification of resources available to assist in meeting health care needs will improve 02/27/2024630 by Tomas Martínez RN Outcome: Progressing 02/27/2024232 by Tomas Martínez RN Outcome: Progressing ON GRAPHICS DESIGNER * Plan of Care - Danya Lazar RN - 02/26/2024 4:01 PM CST Dialysis: Clinical Goals for Treatment: Prevent and manage potential signs and symptoms of complications of hemodialysis. Dialysis access site, blood lines, connections, and patients face will be visible during dialysis treatment. Vital signs will be charted every 15 minutes on a continuous ekg monitor tech while on dialysis treatment. Patient will remain free from falls/injury during dialysis. ON GRAPHICS DESIGNER * Plan of Care - Sukhwinder Solorio RN - 02/26/2024 2:48 PM CST Problem: Discharge Planning Goal: Understanding discharge needs will improve Outcome: Not Progressing Problem: Skin Integrity Impairment Risk Goal: Mobility will improve Outcome: Not Progressing Goal: Understanding of ways to prevent future skin breakdown will improve Outcome: Not Progressing Goal: Nutritional status will improve Outcome: Not Progressing Goal: Risk for impaired skin integrity will decrease Outcome: Not Progressing Problem: Neurosensory Goal: Achieves stable or improved neurological status Outcome: Not Progressing Problem: Respiratory Goal: Achieves optimal ventilation and oxygenation Outcome: Not Progressing Problem: Skin/Tissue Integrity Goal: Skin integrity remains intact Outcome: Not Progressing Problem: Musculoskeletal Goal: Return mobility to safest level of function Outcome: Not Progressing Problem: Genitourinary Goal: Absence of urinary retention Outcome: Not Progressing Goals: Clinical Goals for the Shift: VSS, Q4 Neuro, HD, promote safety and comfort Summary: Patient had [employer] consult, OT/PT consult, sat in chair and receiving dialysis treatment. Patient stable through shift. ON GRAPHICS DESIGNER * Plan of Care - Makenna Stewart SLP - 02/26/2024 1:44 PM CST Problem: Swallowing Goal: LTG - Patient will tolerate the least restrictive diet consistency to allow for safe consumption of daily meals Outcome: Progressing Goal: STG - Patient will tolerate recommended food and liquid consistencies without clinical signs and symptoms of aspirations Outcome: Progressing Goal: STG - Patient will demonstrate safe oral intake to advance diet Outcome: Progressing Clinical Impression & Professional Recommendations Diet Solids Recommendation: Mechanical soft Diet Liquids Recommendations: Juliette thick Recommended Form of Medications: As tolerated Compensatory Strategies/Modifications: Single sips, Small bites, Double/repeat swallows to clear Postural Recommendations: Upright 90 degrees Assistance with feeding/swallowing: One to one assist with meals, Assistance with thickening liquid Specialty Instructions/Modifications: good oral care 2-3x/day including teeth brushing (gums and tongue) with suction while upright at 90 and with 100% assistance to improve the oral biome and reducethe risk of aspiration related complications (i.e., PNA) Dysphagia Diagnosis: Mild pharyngeal stage dysphagia Pt seen this date for swallow tx; [address] floor. Pt resting in bed with no visitors present. Pt woke with ease and agreeable to tx. ST provided pt with nectar-thick home kit, providing extensive education on importance of thickening liquids, how to thicken liquids, where to buy thickener, etc. ST provided pt with educational handout listing instructions for thickened liquids. Pt verbalized understanding. [employer] will continue to follow. ON GRAPHICS DESIGNER * Plan of Care - Mirna Coronado RN - 02/26/2024 12:29 PM CST Medical team notified me that patient now wants IPR changed her mind from yesterday. has sent list to son and patient has a list as well at this time, son will be here shortly to look at the physical list as well ADDENDUM: 02/27/24 @0841 FAMILY HAS NOT LOOKED AT LIST SENDING LIST TO SON NOW ON GRAPHICS DESIGNER ON GRAPHICS DESIGNER * Hospital Course - Cj Palacios MD - 02/26/2024 9:05 AM CST Trisha Waite is a 73 y.o. woman with past medical history of ESRD on HD TTS, HTN, undiagnosed COPD, prior left BG/thalamic calcifications, and bilateral deep subcortical HTN microhemorrhages or bilateral mneralization, identified in 2019 after stroke presentation (with residual RSW) admitted with hyperacute onset of right sided weakness, right facial droop, and dysarthria. 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 BP and symptoms improved after bolus of IVF. Likely has flow-dependent lesion causing recrudescence of stroke symptoms, possibly related to her venous anomaly. She also appears to have a rhinitis, prior COPD?, and has had multiple coughing fits on OU compatible with the history of the event described by son. Initial NIHSS 11, follwed by NIHSS 4 after fluids (consistent with baseline deficits). Imaging without acute stroke or bleed. Less likely TIA or seizuregiven correlation with hypotension. She has features of ongoing aphasia and right hemiparesis but ac cording to family she has since recovered to her neurological baseline. Neuro-imaging: -- CTH with left deep oliveira calcifications, obscuring whether there is any acute bleed. -- CTA without LVO, but with venous anomaly in the left deep oliveira, with possible adjacent cavernoma. -- MRI showed no acute infarct and no convincing evidence of acute hemorrhage, with susceptibility artifact in bilateral BG and CBL favored to represent chronic mineralization or sequelae of prior hemorrhage (consistent with prior imaging reports of L BG/thalamic calcifications). Also with scattered chronic infarcts and severe white matter disease. Work up for provoking factors -- CXR (unremarkable), UA (neg), RPP (neg), BCx (in process), UDS (+ cannabinoids) -- rEEG to assess for possible epileptiform activity; post-ictal state is a possibility-->demonstrated no seizures, no epileptiform abnormalities , left hemisphere slowing, maximal over the left temporal region, and moderate generalized slowing. -- NSGY consulted, no recommendations felt developmental venous anomaly is chronic, signed off -- A1c (5.2), LDL (45), HDL (43), continue ASA (home medication) Plan: -- NC q4h -- BP goal: normotension -- NSGY follow-up for possible cavernoma/DVA, given that her deficits could correspond to a lesion in this location and she has clear residual deficits -- Would also benefit from neurology follow up to ensure her exam is tracked and followed and if any recurrence of similar episodes to the one leading to admission (in the absence of a provoking factor like hypotension etc) would reconsider seizure differential # Aspiration -- [employer] consult - recommend nectar thick liquids, mech soft solids, 100% supervision with PO -- She requires MBS at [facility] to clarify whether she still needs nectar thick liquids # Spell of abnormal behavior Her son witnessed the possible seizure-like spell. She had a 1 second-long episode of a coughing fit, he thought she was choking, she leaned forward and he patted her on the back, she pushed her headback and she coughed and her eyes opened widely, she was looking through him but after 1 sec she said she was ok. He has never had concerns for seizures for her before. Had rEEG without epileptiform discharges or seizures. There is low concern for seizures based on this description but she may beat risk given her age and microvascular disease. - Monitor for possible seizures Treatment/Disposition/Follow-Up: The patient was started on no new treatments. Disposition: Per PT/OT evaluation, the patient was discharged to [facility]. Therapy referrals: PT/OT/[employer] Follow-up: The patient will follow-up in the outpatient [facility] clinic of [facility]. The contact information of the clinic is listed below: [facility] ([facility]) [address] [place] [address] Other medical problems addressed during this hospitalization: # Hypertensive microangiopathy # Chronic infarcts ( right occipital, bilateral thalamic, and bilateral cerebellar lacunar) -- continue ASA -- d/c statin (LDL 45), not a home medication -- PT/OT consult # Neuropathic pain Has chronic right arm pain that started after her stroke in 2019. -- home gabapentin 100 TID, suboptimal medication amidst her ESRD, consider a wean or a switch in the outpatient setting -- tylenol PRN # Hypovolemic hypotension On arrival, BP 88/69 (up to 108/69 s/p 2L NS in ED). Received dialysis Sunday morning before admission, unclear how much fluid was removed. Given additional 1L NS after arrival to NNICU. On 02/26, had symptomatic hypotension w/ lightheadedness in the AM with BP low to 83/51. Given 1L NS bolus with improvement. Her recent nectar thick liquid requirement likely contributed to poor PO and hypovolemia. -- hold home anti-hypertensive -- Nephrology following, titrating dialysis as needed # HTN -- holding home metoprolol-XL 25mg daily and lasix 20mg on non-dialysis days iso recent hypotension # QTc prolongation -- QTc 525 on ECG in ED.Repeat was 468. Was not on QTc prolonging meds. Suspect inaccurate result given poor quality EKG -- avoid QT prolonging medications # Chronic Anemia in setting of ESRD Hgb 10.1. F/u outpatient -- transfuse for Hgb <7 # Implanted loop recorder According to family, placed in 2019 after her first stroke. # COPD, undiagnosed Not formally diagnosed. Former smoker (40 pack-year history). Recent ED admission 02/04 for SOB, improved with duonebs and prescribed a short course of PO prednisone. CT chest at the time demonstrated changes of centrilobular emphysema -- O2 for goal >88%, currently on RA -- PRN duonebs -- OOBTC as tolerated and IS -- would benefit from outpatient PFTs/pulmonology f/u # Posterior right 9th and 10th rib fractures Fell 02/03/24 and presented to OSH with chest pain. On CT chest (02/07/24) Found to have old healedbilateral rib fractures, interval healing of the previously noted acute right seventh rib fracture and acute nondisplaced fractures of the right ninth and tenth ribs posterolaterally -- APAP PRN -- supportive care # Oliguric ESRD on HD TTS Last dialysis session 02/27 -- consulted nephrology for HD -- access: LUE AV fistula -- continue home Sevelamer 800 TID -- holding home lasix 20 mg on non-dialysis days due to concern for hypovolemia -- BMP daily # Hypocalcemia in setting of ESRD Ca 7.9, ICa 3.82. -- 2g Ca gluconate overnight -- check ical in am -- consider Vit D and PO supplementation # Sepsis workup -- Arrived hypotensive, very responsive to fluids. No other signs of infection, infectious work up negative thus far -- CBC daily, patient remains afebrile ON GRAPHICS DESIGNER ON GRAPHICS DESIGNER ON GRAPHICS DESIGNER ON GRAPHICS DESIGNER ON GRAPHICS DESIGNER * ECIN Note - Mirna Coronado RN - 02/26/2024 8:49 AM CST [facility] [address] [facility] [address] Date: Feb 26, 2024 Ambulatory referral to Home Health Patient: Trisha Waite [address] [facility] [address] : 1950 SSN: [id number] Sex: F Insurance: MEDICARE PART A & B Referring Provider Information: ANGLE LA Referral Information: # Visits: 1 Referral Type: Home Health [42] Urgency: Routine Referral Reason: Specialty Services Required Start Date: Feb 26, 2024 End Date: To be determined by Insurer Diagnosis: Stroke-like symptoms (R29.90) Refer to Dept: [facility] Home Care Services [address] [place], [address] Service Line: Home Health Primary disciplines requested: Physical Therapy Secondary disciplines requested: Occupational Therapy Home Health Services: Disease and Medication Management Requested Start of Care Date: 24-48 hours Physician to follow patient's care (the person listed here will be responsible for signing ongoing orders): PCP I attest that I or another qualified licensed provider saw the patient 90 days prior to or 30 days post admission and this face to face encounter meets the necessary Home Health requirements. The face to face encounter occurred on (date): 02/26/2024 The encounter with the patient was in whole, or in part, for the following medical condition, whichis the primary reason for home health care. (List medical condition): Previous stroke with residualweakness I certify that, based on my findings, the following services are medically necessary skilled home health services: Therapy to Eval/Tx Clinical findings that support the need for home care: Medical condition requiring skilled assessment/education Clinical findings that support the need for home care: Frequent falls requiring safety eval/therapy Clinical findings that support the need for home care: Lack of knowledge regarding medications, requires education and assessment I certify that my clinical findings support patient's homebound status. Homebound criteria met because: Poor endurance I certify that my clinical findings support patient's homebound status. Homebound criteria met because: Abnormal gait/unsteady balance resulting in fall risk Entered by: Cj Palacios MD Authorizing Provider: Angle La MD PhD ( ) Network Project Manager: Angle La MD PhD This document serves as a request of services and does not constitute Insurance authorization or approval of services. To determine eligibility, please contact the member???s Insurance carrier to verify and review coverage. If you have medical questions regarding this request for services. Please contact [facility] [phone] between the hours of 8:00am - 4:30pm (Mon-Fri). ON GRAPHICS DESIGNER * Plan of Care - Mita Aponte RN - 02/25/2024 10:43 PM CST Problem: Discharge Planning Goal: Understanding discharge needs will improve Outcome: Progressing Problem: Skin Integrity Impairment Risk Goal: Mobility will improve Outcome: Progressing Goal: Understanding of ways to prevent future skin breakdown will improve Outcome: Progressing Goal: Nutritional status will improve Outcome: Progressing Goal: Risk for impaired skin integrity will decrease Outcome: Progressing Problem: Neurosensory Goal: Achieves stable or improved neurological status Outcome: Progressing Problem: Respiratory Goal: Achieves optimal ventilation and oxygenation Outcome: Progressing Problem: Skin/Tissue Integrity Goal: Skin integrity remains intact Outcome: Progressing Problem: Musculoskeletal Goal: Return mobility to safest level of function Outcome: Progressing Problem: Genitourinary Goal: Absence of urinary retention Outcome: Progressing Goals: Clinical Goals for the Shift: VSS, Q4 Neuro, HD, promote safety and comfort Summary: ON GRAPHICS DESIGNER * Plan of Care - Sulema Sanders RN - 02/25/2024 12:50 PM CST 02/25/24 1249 Discharge Planning Support System Children Anticipated discharge level of care Acute Rehab Does the patient need discharge transport arranged? No (son) Post Acute Care Plan Home Care Services Yes Type of Home Care Services Home therapies Home Care Services Name and Phone Number [facility] N/A DME N/A Post Acute Care Facility Decline CM Progression of Care Update Per Medical Chart/Rounds/IDR: Patient not medically stable for d/c. ADD: 02/25 Discharge Barriers: medical readiness Education Needs Identified (plan): Account Adjuster noted patient has been recommended for Inpatient Rehab by PT/OT. Account Adjuster met with the patient/family at bedside to discuss recommendations by therapy and to work on a potential discharge disposition plan. Account Adjuster provided education to patient/family on the rehabilitation process. Patient reported she was not interested in placement for rehabilitation. Patient was agreeable to home with . She asked for CM to discuss with her son. Called and spoke with son, Zack, and reviewed above information and patient's declining inpatient rehab. Patient agreeable to patient coming home with . He is available for 09/10 support. She has a WW at home already.He said she's used [facility] in the past. Referrals sent and patient was accepted by [facility] for SOC 02/26. P. [phone]/F. [phone] F/U Appointments: To be scheduled prior to d/c as appropriate Patient's Identified Problem/Goal Problem:?Ensure acute medical needs are met and that patient has a safe discharge plan. Goal:?Secure a discharge plan that patient/family are agreeable with?and ensure patient has continuum of care. Patient and/or family are agreeable with plan. emergency planning and response manager will continue to follow and assist with discharge planning as needed. If any further discharge needs arise, please contact the covering case worker. ON GRAPHICS DESIGNER * Plan of Care - Luz Maria Lehman RN - 02/24/2024 10:10 PM CST Problem: Discharge Planning Goal: Understanding discharge needs will improve Outcome: Progressing Problem: Skin Integrity Impairment Risk Goal: Mobility will improve Outcome: Progressing Goal: Understanding of ways to prevent future skin breakdown will improve Outcome: Progressing Goal: Nutritional status will improve Outcome: Progressing Goal: Risk for impaired skin integrity will decrease Outcome: Progressing Problem: Neurosensory Goal: Achieves stable or improved neurological status Outcome: Progressing Problem: Respiratory Goal: Achieves optimal ventilation and oxygenation Outcome: Progressing Problem: Skin/Tissue Integrity Goal: Skin integrity remains intact Outcome: Progressing Problem: Musculoskeletal Goal: Return mobility to safest level of function Outcome: Progressing Problem: Genitourinary Goal: Absence of urinary retention Outcome: Progressing ON GRAPHICS DESIGNER * Significant Event - Laly Clements NP - 02/24/2024 2:58 PM MOTION GRAPHICS DESIGNER Neuro Critical Care Transfer Note Dx: right-sided weakness HPI: Trisha Waite is a 73 y.o. female with past medical history of ESRD on HD TTS, HTN, undiagnosed COPD, prior left BG/thalamus calcifications discovered in 2019 after stroke presentation (withresidual RSW) who presented with hyperacute onset right sided weakness, right facial droop, and dysarthria. At baseline, she has mild right sided weakness in her upper and lower extremities. She lives with her son and ambulates with a walker, but requires assistance with dressing and bathing, and other IADLs. Patient had dialysis this morning, after which she felt 'wiped out', which is usual for her. LKN 16:35. At that time, she was taking her medications when she suddenly tensed up, back stiffened and neck extended. Her son notes that her eyes were wide but she did not have a gaze deviation. He then noticed that her right side was weak, as she was unable to lift it when asked. Possibly also slurred speech but hard to assess precisely since patient has poor dentition. She was taken to [facility] ED via helicopter. She was code stroke here. On arrival, BP 88/69 (up to 108/69 s/p 1L NS), HR 66. BG 105. NIHSS 11 (1 question, 1 face, 3 RUE, 3 RLE, 1 LLE, 1 sensory, 1 dysarthria). Exam notable for dysarthria without aphasia, right hemiparesis (improved to about 4/5 on re- examination), slight right sided numbness. CTH with left deep oliveira ca lcifications, obscuring whether there is any acute bleed. [...] chronic infarcts and severe white matter disease. Other workup in ED notable for: CMP with Na 140, K 3.5, Cr 3.65, Ca 7.5. CBC with Hgb 9.7, Plt 180.INR 1.0, aPTT 24. ECG with NSR, QTc 525. Trop 6. CXR with loop recorder, scarring in RML and RL base. For her prior stroke in 2019, from her son: she developed acute onset right facial weakness, followed by right sided weakness a few minutes later. At that time, they discovered the calcifications in her L BG/thalamus. Hospital Course: 02/23/2024 Admitted to NNICU feeling in her usual state of health. BP 99/62. NIHSS on arrival was 4 (RLE 1, sensory 1, dysarthria 1, extinction 1). She was given an additional 1L NS bolus, started on mIVF. RVP negative, blood cultures in progress, UA noninfectious. rEEG obtained, demonstrated no seizures, no epileptiform abnormalities , left hemisphere slowing, maximal over the left temporal region, and moderate generalized slowing. 02/24/2024 hemodynamically stable, continued home ASA, discontinued atorvastatin as LDL 45 and was not on prior therapy. PHYSICAL EXAM: General: No acute distress HEENT: Mucous membranes dry, sclera anicteric Cardiac: Normal rate and regular rhythm on monitor, no M/R/G Pulmonary: Even, unlabored respirations. Symmetric chest rise and fall. Lung sounds scattered rhonchi. Abdomen: Non-distended in appearance, bowel sounds present, soft and non-tender to palpation Ext: No peripheral edema or digital cyanosis, LUE AV fistula Skin: No rashes or lesions NEURO EXAM Mental Status Awake, alert, eyes open spontaneously, regards, good attention span, speech fluent, follows commands, oriented to person, place (hospital) and time (month with choices but not year). Trouble naming mod/low frequency objects, repetition intact Cranial Nerves PERRL, EOMI, VFFTC, Face symmetric, dysarthria (edentulous), normal tongue protrusion Motor LUE 5/5. RUE 4-/5. LLE 4/5 HF, otherwise 5/5. RLE 3/5 HF, otherwise 4+/5. Sensory: Intact to light touch throughout. No extinction to double stimulation. 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 BP and symptoms improved after bolus of IVF. Likely has flow-dependent lesion, possibly related to her venous anomaly. Initial NIHSS 11, follwed by NIHSS 4 after fluids (consistent with baseline deficits. Imaging without acute stroke or bleed. Less likely TIA orseizure given correlation with hypotension. Neuro-imaging: -- CTH with left deep oliveira calcifications, obscuring whether there is any acute bleed. -- CTA without LVO, but with venous anomaly in the left deep oliveira, with possible adjacent cavernoma. -- MRI showed no acute infarct and no convincing evidence of acute hemorrhage, with susceptibility artifact in bilateral BG and CBL favored to represent chronic mineralization or sequelae of prior hemorrhage (consistent with prior imaging reports of L BG/thalamic calcifications). Also with scattered chronic infarcts and severe white matter disease. -- additional work up for provoking factors: CXR (unremarkable), UA (neg), RPP (neg), BCx (in process), UDS (+ cannabinoids) -- rEEG to assess for possible epileptiform activity; post-ictal state is a possibility-->demonstrated no seizures, no epileptiform abnormalities , left hemisphere slowing, maximal over the left temporal region, and moderate generalized slowing. -- NSGY consulted, no recommendations felt developmental venous anomaly is chronic, signed off -- A1c (5.2), LDL (45), HDL (43), continue ASA (home medication) -- NC q4h -- BP goal: normotension # Hypertensive microangiopathy # Chronic infarcts ( right occipital, bilateral thalamic, and bilateral cerebellar lacunar) -- continue ASA -- d/c statin (LDL 45), not a home medication -- PT/OT consult # Neuropathic pain Has chronic right arm pain that started after her stroke in 2019. -- home gabapentin 100 TID -- tylenol PRN CARDIOVASCULAR and HEME # Hypovolemic hypotension, improved On arrival, BP 88/69 (up to 108/69 s/p 2L NS in ED). Received dialysis Sunday morning, unclear how much fluid was removed. Given additional 1L NS after arrival to NNICU -- discontinue mIVF, as eating and drinking fluids well -- hold home anti-hypertensive -- sepsis work up as above but no signs of septic shock # HTN -- holding home metoprolol-XL 25mg daily and lasix 20mg on non-dialysis days iso recent hypotension # QTc prolongation -- QTc 525 on ECG in ED -- avoid QT prolonging medications # Chronic Anemia in setting of ESRD Hgb 10.1. F/u outpatient -- transfuse for Hgb <7 # Implanted loop recorder According to family, placed in 2019 after her first stroke. PULMONARY # COPD, undiagnosed Not formally diagnosed. Former smoker (40 pack-year history). Recent ED admission 02/04 for SOB, improved with duonebs and prescribed a short course of PO prednisone. CT chest at the time demonstrated changes of centrilobular emphysema -- O2 for goal >88%, currently on RA -- PRN duonebs -- OOBTC as tolerated and IS -- would benefit from outpatient PFTs/pulmonology f/u # Posterior right 9th and 10th rib fractures Fell 02/03/24 and presented to OSH with chest pain. On CT chest (02/07/24) Found to have old healedbilateral rib fractures, interval healing of the previously noted acute right seventh rib fracture and acute nondisplaced fractures of the right ninth and tenth ribs posterolaterally -- APAP PRN -- supportive care RENAL # Oliguric ESRD on HD TTS -- consult nephrology in AM for HD (due Allyson, 02/25) -- access: LUE AV fistula -- continue home Sevelamer 800 TID -- hold home lasix 20 mg on non-dialysis days due to concern for hypovolemia -- BMP daily # Hypocalcemia in setting of ESRD Ca 7.9, ICa 3.82. -- 2g Ca gluconate overnight -- check ical in am -- consider Vit D and PO supplementation GI and ENDO # Nutrition -- Mechanical soft (edentulous) -- Bowel regimen: Colace and Senna BID INFECTION # Sepsis workup -- Arrived hypotensive, very responsive to fluids. No other signs of infection, infectious work up negative thus far -- CBC daily, patient remains afebrile ACCESS Lines PIV x2 Left chest port (01/2023) VTE Prophylaxis Last Venous Doppler: n/a Prophylaxis: SCDs, SQH CODE STATUS: Full Code Provider sign our given to: Cj Palacios MD with General Neurology Laly Clements NP ON GRAPHICS DESIGNER * Plan of Care - Yuliana Barrera RN - 02/24/2024 2:57 PM CST Goals: Clinical Goals for the Shift: Q1 NC, Q1 VS, orthostatic BP, promote safety and comfort Problem: Discharge Planning Goal: Understanding discharge needs will improve Outcome: Progressing Problem: Skin Integrity Impairment Risk Goal: Mobility will improve Outcome: Progressing Goal: Understanding of ways to prevent future skin breakdown will improve Outcome: Progressing Goal: Nutritional status will improve Outcome: Progressing Goal: Risk for impaired skin integrity will decrease Outcome: Progressing ON GRAPHICS DESIGNER * Initial Assessments - Cal Werner RN - 02/24/2024 12:52 PM CST CM Initial Assessment Interview Note Information Obtained From: Patient (02/24/241246) Admission Source: Emergency Department Impression: 73 year old female admitted with, slurred speech, facial droop with right sided weakness in upper and lower extremities. Plan Includes: CM will follow for Med updates and D/C planning and referrals. Primary Source of Transportation: Does the patient need discharge transport arranged?: No (Naren Dixon will provide transportation home,phone [phone]) (02/24/241246) Health Insurance Coverage: Medicare Prescription Coverage: Yes Pharmacy: No Pharmacies Listed Primary Care Provider: No, Physician Prior to Admission: Functional Status: Minimal assist with ADLs Primary Caregiver: Self Support System: Children Home Care Services: No Outpatient Services: No Durable Medical Equipment: Walker (no wheels), Other (Comment) (Uses a scooter for long distances outside the house.) Living Arrangements: Children Type of Residence: Private residence Steps in home?: Yes, Outside of home Number of steps outside: 4 steps Medication management: Independent (02/24/241246) PHQ Screening Potential discharge needs include: OP Services: Dialysis: Behavioral Health Services: Behavioral Health Services: No (02/24/241246) Anticipated Level of Care: Anticipated discharge level of care: Private residence Pt/Family agrees with Anticipated Level of Care: Yes (02/24/241246) Patient expects to be Discharged to: Private residence, (02/24/241246) Additional Information: Met with Pt and so bedside, explained role of CM. Anticipate pt will d/c home when medically stable. CM to continue following for d/c planning and medical referrals. Patient's Identified Problem/Goal Problem: Ensure acute medical needs are met and that patient has a safe discharge plan. Goal: Secure a discharge plan that patient/family are agreeable with and ensure patient has continuum of care. Case management will follow for discharge planning and send referrals as needed. Goals include: To assure continuity of care, To maximize coping skills, To assure patient is in a safe environment and To assure access to community resources. Plan includes: 1. Collaboration with Patient, Provider, Direct Care Nurse, Ornamental Plaster Sticker, and other members of theHealth Care Team to assure needed interventions completed. 2. Return patient to optimal level of self-care post discharge. 3. Account Adjuster will follow for Discharge Planning - interventions as needed 4. Anticipated level of care at discharge 5. Planned Discharge Disposition Cal Werner RN ON GRAPHICS DESIGNER * Plan of Care - Ezequiel Pickett RN - 02/24/2024 2:52 AM CST Goals: Sbp<175, Q1 neurochecks, comfort and pain management, oxygen management Summary: Problem: Discharge Planning Goal: Understanding discharge needs will improve Outcome: Progressing Problem: Skin Integrity Impairment Risk Goal: Mobility will improve Outcome: Progressing Goal: Understanding of ways to prevent future skin breakdown will improve Outcome: Progressing Goal: Nutritional status will improve Outcome: Progressing Goal: Risk for impaired skin integrity will decrease Outcome: Progressing ON GRAPHICS DESIGNER * ED Procedure Note - Fabiana Wilson MD - 02/23/2024 7:00 PM CSTAssociated Order(s): ECG 12 lead Procedure ECG 12 lead Date/Time: 02/23/2024 7:00 [...] workup in the ED Fabiana Wilson MD 02/23/241900 ON GRAPHICS DESIGNER * ED Procedure Note - Fabiana Wilson MD - 02/23/2024 6:58 PM CSTAssociated Order(s): Critical Care Procedure Critical Care Performed by: Fabiana Wilson MD Authorized by: Fabiana Wilson MD Critical care provider statement: As reflected in the history, physical exam, orders, notes, and/or MDM, I was personally present while the patient was critically ill and provided critical care services for 35 minutes, excluding timeinvolved in separately billable procedures. Critical care was necessary to treat or prevent imminent or life- threatening deterioration of the following condition(s): acute cerebrovascular accident (CVA) and severe neurologic condition Critical care was time spent by me providing the following: continuous telemetry, continuous pulse oximetry, interpretation of bedside monitors, imaging, and arterial/venous lab draws, serial bedside patient exams and serial laboratory checks frequent neurologic exams, decision regarding acute lytic therapy, initiation of stroke management and advanced imaging MRI I provided emergent necessary critical care medicine [...] continuous cardiac monitored bed. Fabiana Wilson MD 02/26/242031 ON GRAPHICS DESIGNER * ED Re-evaluation Note - Nolvia Georges MD - 02/23/2024 6:57 PM MOTION GRAPHICS DESIGNER ED Re-evaluation TRANSITION OF CARE: I, Nolvia Georges MD, am taking signout from the outgoing ED team under supervision of my attending physician. I have reviewed all pertinent vital signs, allergies, and history available in the chart. Please see the workup tab for further transfer of care details. Current visit diagnosis: 1. Stroke-like symptoms 2. Intracranial hemorrhage (HCC) 3. Hypotension, unspecified hypotension type 4. Cerebral cavernoma 5. Developmental venous anomaly 73yo w/ prior stroke. Started exhibiting signs of stroke, CT showed possible bleeding, had hypotension resus w/ fluids Plan: hyperacute MRI, if bleed ->platelets; touch base w/ neurosurg Dispo: admit to ICU w/ q1h neuro checks ED Course as of 02/27/24 2223 Time: 02/22 1901 Comment: Prolonged QTc. Will need mag once blood pressure stabilizes By: Radha Quintanilla MD Time: 02/22 1910 Comment: TRANSITION OF CARE: I have reviewed all pertinent vital signs, allergies, and history available in the chart. I, Suly Basilio MD, am taking signout from Dr. Webb (Resident). Summary: 73 y.o. female stroke page. Hx of prior stroke with R deficits. LKN 8080. Diff swallowing and R facial droop. HCT c/f bleed but now c/f calcification. NSGY consulted and recommended platelets, q1h NC. Hypotensive and got fluids. Pending: Hyperacute MRI. Hold platelets until MRI results. TBW NSGY. Dispo: Admission By: Ant Basilio MD 73yo presenting with stroke symptoms. CTA head and neck finished. Ordered platelets. Nolvia Georges MD Resident 02/23/241914 ON GRAPHICS DESIGNER ON GRAPHICS DESIGNER documented in this encounter Plan of Treatment Pending Results Name Type Priority Associated Diagnoses Date /Time Magnesium Lab STAT 02/23/2024 6:4 0 PM MOTION GRAPHICS DESIGNER Lipid panel Lab Timed 02/23/2024 9: 23 PM MOTION GRAPHICS DESIGNER Hemoglobin A1c Lab STAT 02/23/2024 9:23 PM MOTION GRAPHICS DESIGNER Scheduled Orders Name Type Priority Associated Diagnoses Orde r Schedule Magnesium Lab STAT Once for 1 Occ urrences starting 02/23/2024 until 02/23/2024 ECG 12 lead ECG STAT As needed unt il discontinued starting 02/23/2024 Lipid panel Lab Timed Once for 1 Oc currences starting 02/23/2024 until 02/23/2024 Hemoglobin A1c Lab STAT Once for 1 Occurrences starting 02/23/2024 until 02/23/2024 Scheduled Referrals Name Type Priority Associated Diagnoses Order Schedule Ambulatory referral to Neurosurgery Outpatient Referral Routine Cerebral cavernoma Developmental venous anomaly Expected: 03/11/2024 (Approximate), Expires: 02/25/2025 Ambulatory referral to Neurology Outpatient Referral Routine Stroke-like symptoms Expected: 03/11/2024 (Approximate), Expires: 02/25/2025 Ambulatory referral to Home Health Outpatient Referral Routine Stroke-like symptoms 1 Occurrences starting 02/26/2024 until 08/26/2024 documented as of this encounter Procedures Procedure Name Priority Date/Time Associated Diagnosis Comments EGFR Routine 02/28/2024 8:13 PM MOTION GRAPHICS DESIGNER CBC WITHOUT DIFFERENTIAL Routine 02/28/2024 8:13 PM MOTION GRAPHICS DESIGNER BASIC METABOLIC PANEL Routine 02/28/2024 8:13 PM MOTION GRAPHICS DESIGNER HEMODIALYSIS Routine 02/28/2024 1:58 PM MOTION GRAPHICS DESIGNER EGFR Routine 02/27/2024 6:38 PM MOTION GRAPHICS DESIGNER CBC WITHOUT DIFFERENTIAL Routine 02/27/2024 6:38 PM MOTION GRAPHICS DESIGNER BASIC METABOLIC PANEL Routine 02/27/2024 6:38 PM MOTION GRAPHICS DESIGNER EGFR Routine 02/26/2024 10:00 PM MOTION GRAPHICS DESIGNER CBC WITHOUT DIFFERENTIAL Routine 02/26/2024 10:00 PM MOTION GRAPHICS DESIGNER BASIC METABOLIC PANEL Routine 02/26/2024 10:00 PM MOTION GRAPHICS DESIGNER HEPATITIS B SURFACE ANTIGEN STAT 02/26/2024 2:36 PM MOTION GRAPHICS DESIGNER MANAGER [employer] EVALUATE AND TREAT FIBEROPTIC ENDOSCOPIC SWALLOW STAT 02/26/2024 9:59 AM MOTION GRAPHICS DESIGNER EGFR Timed 02/25/2024 10:53 PM MOTION GRAPHICS DESIGNER BASIC METABOLIC PANEL Timed 02/25/2024 10:53 PM MOTION GRAPHICS DESIGNER CBC WITHOUT DIFFERENTIAL Routine 02/25/2024 9:45 PM MOTION GRAPHICS DESIGNER BLOOD GAS, VENOUS STAT 02/25/2024 11: 18 AM MOTION GRAPHICS DESIGNER ECG 12-LEAD Routine 02/25/2024 11:07 AM MOTION GRAPHICS DESIGNER EGFR Routine 02/24/2024 8:10 PM MOTION GRAPHICS DESIGNER CALCIUM, IONIZED Routine 02/24/2024 8:10 PM MOTION GRAPHICS DESIGNER CBC WITHOUT DIFFERENTIAL Routine 02/24/2024 8:10 PM MOTION GRAPHICS DESIGNER BASIC METABOLIC PANEL Routine 02/24/2024 8:10 PM MOTION GRAPHICS DESIGNER DRUGS OF ABUSE SCREEN, URINE WITH REFLEX CONFIRMATION Routine 02/24/2024 1:51 AM MOTION GRAPHICS DESIGNER URINALYSIS AND REFLEX TO MICROSCOPIC AND CULTURE Routine 02/24/2024 1:51 AM MOTION GRAPHICS DESIGNER URINALYSIS, MICROSCOPIC ONLY Routine 02/24/2024 1:51 AM MOTION GRAPHICS DESIGNER EEG Routine 02/24/2024 1:16 AM MOTION GRAPHICS DESIGNER B CHECK SAMPLE STAT 02/24/2024 12:05 AM MOTION GRAPHICS DESIGNER TROPONIN I HIGH-SENSITIVITY 4-HOUR Timed 02/23/2024 10:47 PM MOTION GRAPHICS DESIGNER CALCIUM, IONIZED STAT 02/23/2024 10:4 7 PM MOTION GRAPHICS DESIGNER TROPONIN I HIGH-SENSITIVITY 2-HOUR Timed 02/23/2024 9:23 PM MOTION GRAPHICS DESIGNER EGFR Timed 02/23/2024 9:23 PM MOTION GRAPHICS DESIGNER APTT STAT 02/23/2024 9:23 PM MOTION GRAPHICS DESIGNER PROTIME-INR STAT 02/23/2024 9:23 PM MOTION GRAPHICS DESIGNER CBC WITHOUT DIFFERENTIAL STAT 02/23/2024 9:23 PM MOTION GRAPHICS DESIGNER TYPE AND SCREEN STAT 02/23/2024 9:23 PM MOTION GRAPHICS DESIGNER PHOSPHORUS Timed 02/23/2024 9:23 PM MOTION GRAPHICS DESIGNER MAGNESIUM Timed 02/23/2024 9:23 PM MOTION GRAPHICS DESIGNER HEMOGLOBIN A1C STAT 02/23/2024 9:23 PM MOTION GRAPHICS DESIGNER LIPID PANEL Timed 02/23/2024 9:23 PM MOTION GRAPHICS DESIGNER COMPREHENSIVE METABOLIC PANEL Timed 02/23/2024 9:23 PM MOTION GRAPHICS DESIGNER RESPIRATORY PATHOGEN PANEL Routine 02/23/2024 8:58 PM MOTION GRAPHICS DESIGNER BLOOD CULTURE STAT 02/23/2024 8:58 PM MOTION GRAPHICS DESIGNER BLOOD CULTURE STAT 02/23/2024 8:58 PM MOTION GRAPHICS DESIGNER ECG 12-LEAD STAT 02/23/2024 8:29 PM MOTION GRAPHICS DESIGNER POCT GLUCOSE DEVICE Routine 02/23/2024 8 :20 PM MOTION GRAPHICS DESIGNER MRI BRAIN WO CONTRAST Critical/Life-T hreatening 02/23/2024 8:07 PM MOTION GRAPHICS DESIGNER XR CHEST 1 VIEW IP Routine 02/23/2024 7:36 PM MOTION GRAPHICS DESIGNER ECG 12-LEAD STAT 02/23/2024 7:00 PM MOTION GRAPHICS DESIGNER ID CRITICAL CARE ILL/INJURED PATIENT INIT 30-74 MIN Routine 02/23/2024 6:58 PM MOTION GRAPHICS DESIGNER TROPONIN I HIGH-SENSITIVITY SERIES (BASELINE, 2HR, 4HR, 6HR) STAT 02/23/2024 6:40 PM MOTION GRAPHICS DESIGNER EGFR STAT 02/23/2024 6:40 PM MOTION GRAPHICS DESIGNER DIFFERENTIAL AUTO STAT 02/23/2024 6:4 0 PM MOTION GRAPHICS DESIGNER CBC WITH AUTO DIFFERENTIAL STAT 02/23/2024 6:40 PM MOTION GRAPHICS DESIGNER APTT STAT 02/23/2024 6:40 PM MOTION GRAPHICS DESIGNER MAGNESIUM STAT 02/23/2024 6:40 PM MOTION GRAPHICS DESIGNER COMPREHENSIVE METABOLIC PANEL STAT 02/23/2024 6:40 [address] [address] STROKE PROTOCOL W WO CONTRAST Critical/Life-T hreatening 02/23/2024 6:35 PM MOTION GRAPHICS DESIGNER POCT PROTHROMBIN TIME, WHOLE BLOOD Routine 02/23/2024 6:22 PM MOTION GRAPHICS DESIGNER POCT GLUCOSE DEVICE Routine 02/23/2024 6 :21 PM MOTION GRAPHICS DESIGNER documented in this encounter Results * (ABNORMAL) eGFR (02/28/2024 8:13 PM MOTION GRAPHICS DESIGNER) eGFR 6(L) >=60 mL/min/1. 73 m2 Comment: [...] last reviewed 2021. Blood 02/28/2024 8:13 PM MOTION GRAPHICS DESIGNER 02/28/2024 8:56 PM MOTION GRAPHICS DESIGNER us Fabiana Wilson MD LAB BLOOD ORDERABLES Final Result [facility] Department [place] [address] * (ABNORMAL) Basic metabolic panel (02/28/2024 8:13 PM MOTION GRAPHICS DESIGNER) Sodium 143 135 - 145 mmol/L Potassium, pl 4.6 3.3 - 4.9 mmol/L [facility] Chloride 105 97 - 110 mmol/L [facility] CO2 24 22 - 32 mmol/L [facility] Anion gap 14 2 - 15 mmol/L [facility] BUN 39(H) 6 - 25 mg/dL [facility] Creatinine 6.70(H) 0.60 - 1.10 mg/dL [facility] Glucose 148 70 - 199 mg/dL [facility] Comment: Interpretive Data Fasting glucose >/= 126 [...] 2022. Calcium 9.3 8.5 - 10.3 mg/dL [facility] Blood 02/28/2024 8:13 PM MOTION GRAPHICS DESIGNER 02/28/2024 8:56 PM MOTION GRAPHICS DESIGNER us Fabiana Wilson MD LAB BLOOD ORDERABLES Final Result [facility] Department [place] [address] * (ABNORMAL) CBC without differential (02/28/2024 8:13 PM MOTION GRAPHICS DESIGNER) [facility] WBC 8.5 3.8 - 9.9 K/cumm Hgb 10.8(L) 11.9 - 15.5 g/dL [facility] Hct 33.3(L) 35.6 - 45.5 % [facility] Plt 232 150 - 400 K/cumm [facility] MPV 9.9 9.1 - 12.3 fL [facility] RBC 3.21(L) 3.90 - 5.20 M/cumm [facility] MCV 103.7(H) 81.3 - 96.4 fL [facility] MCH 33.6(H) 27.1 - 33.3 pg [facility] MCHC 32.4 32.3 - 35.7 g/dL [facility] RDW CV 13.6 11.1 - 14.9 % [facility] RDW SD 51.8(H) 35.7 - 48.1 fL [facility] NRBC abs 0.00 0.00 - 0.01 K/cumm [facility] Blood 02/28/2024 8:13 PM MOTION GRAPHICS DESIGNER 02/28/2024 8:56 PM MOTION GRAPHICS DESIGNER us Fabiana Wilson MD LAB BLOOD ORDERABLES Final Result [facility] Department [place] [address] * (ABNORMAL) eGFR (02/27/2024 6:38 PM MOTION GRAPHICS DESIGNER) eGFR 7(L) >=60 mL/min/1. 73 m2 Comment: [...] last reviewed 2021. Blood 02/27/2024 6:38 PM MOTION GRAPHICS DESIGNER 02/27/2024 7:31 PM MOTION GRAPHICS DESIGNER Fabiana Wilson MD LAB BLOOD ORDERABLES Final Result [facility] Department [place] [address] * (ABNORMAL) Basic metabolic panel (02/27/2024 6:38 PM MOTION GRAPHICS DESIGNER) Sodium 142 135 - 145 mmol/L Potassium, pl 4.5 3.3 - 4.9 mmol/L [facility] Chloride 104 97 - 110 mmol/L [facility] CO2 24 22 - 32 mmol/L [facility] Anion gap 14 2 - 15 mmol/L [facility] BUN 26(H) 6 - 25 mg/dL [facility] Creatinine 5.80(H) 0.60 - 1.10 mg/dL [facility] Glucose 124 70 - 199 mg/dL [facility] Comment: Interpretive Data Fasting glucose >/= 126 [...] 2022. Calcium 9.2 8.5 - 10.3 mg/dL [facility] Blood 02/27/2024 6:38 PM MOTION GRAPHICS DESIGNER 02/27/2024 7:31 PM MOTION GRAPHICS DESIGNER Fabiana Wilson MD LAB BLOOD ORDERABLES Final Result Performing Organization Address [facility]/ZIP Co de Phone Number [facility] Department [place] [address] * (ABNORMAL) CBC without differential (02/27/2024 6:38 PM MOTION GRAPHICS DESIGNER) [facility] WBC 8.5 3.8 - 9.9 K/cumm Hgb 11.5(L) 11.9 - 15.5 g/dL [facility] Hct 34.4(L) 35.6 - 45.5 % [facility] Plt 228 150 - 400 K/cumm [facility] MPV 9.7 9.1 - 12.3 fL [facility] RBC 3.35(L) 3.90 - 5.20 M/cumm [facility] MCV 102.7(H) 81.3 - 96.4 fL [facility] MCH 34.3(H) 27.1 - 33.3 pg [facility] MCHC 33.4 32.3 - 35.7 g/dL [facility] RDW CV 13.6 11.1 - 14.9 % [facility] RDW SD 52.0(H) 35.7 - 48.1 fL [facility] NRBC abs 0.00 0.00 - 0.01 K/cumm [facility] Blood 02/27/2024 6:38 PM MOTION GRAPHICS DESIGNER 02/27/2024 7:31 PM MOTION GRAPHICS DESIGNER Fabiana Wilson MD LAB BLOOD ORDERABLES Final Result Performing Organization Address City/State/[facility] Co ut Phone Number [facility] Department [place] [address] * (ABNORMAL) eGFR (02/26/2024 10:00 PM MOTION GRAPHICS DESIGNER) [facility] eGFR 12(L) >=60 mL/min/1. 73 m2 Comment: [...] reviewed 2021. Blood 02/26/2024 10:0 0 PM MOTION GRAPHICS DESIGNER 02/26/2024 10:42 PM MOTION GRAPHICS DESIGNER us Fabiana Wilson MD LAB BLOOD ORDERABLES Final Result [facility] Department [place] [address] * (ABNORMAL) Basic metabolic panel (02/26/2024 10:00 PM MOTION GRAPHICS DESIGNER) Sodium 140 135 - 145 mmol/L Potassium, pl 3.9 3.3 - 4.9 mmol/L [facility] Chloride 102 97 - 110 mmol/L [facility] CO2 26 22 - 32 mmol/L [facility] Anion gap 12 2 - 15 mmol/L [facility] BUN 14 6 - 25 mg/dL [facility] Creatinine 3.79(H) 0.60 - 1.10 mg/dL [facility] Glucose 114 70 - 199 mg/dL [facility] Comment: Interpretive Data Fasting glucose >/= 126 [...] 2022. Calcium 9.0 8.5 - 10.3 mg/dL [facility] Blood 02/26/2024 10:0 0 PM MOTION GRAPHICS DESIGNER 02/26/2024 10:42 PM MOTION GRAPHICS DESIGNER us Fabiana Wilson MD LAB BLOOD ORDERABLES Final Result [facility] Department [place] [address] * (ABNORMAL) CBC without differential (02/26/2024 10:00 PM MOTION GRAPHICS DESIGNER) WBC 12.9(H) 3.8 - 9.9 K/cumm Hgb 11.6(L) 11.9 - 15.5 g/dL [facility] Hct 34.3(L) 35.6 - 45.5 % [facility] Plt 224 150 - 400 K/cumm [facility] MPV 9.7 9.1 - 12.3 fL [facility] RBC 3.36(L) 3.90 - 5.20 M/cumm [facility] MCV 102.1(H) 81.3 - 96.4 fL [facility] MCH 34.5(H) 27.1 - 33.3 pg [facility] MCHC 33.8 32.3 - 35.7 g/dL [facility] RDW CV 13.2 11.1 - 14.9 % [facility] RDW SD 50.1(H) 35.7 - 48.1 fL [facility] NRBC abs 0.00 0.00 - 0.01 K/cumm [facility] Blood 02/26/2024 10:0 0 PM MOTION GRAPHICS DESIGNER 02/26/2024 10:42 PM MOTION GRAPHICS DESIGNER us Fabiana Wilson MD LAB BLOOD ORDERABLES Final Result [facility] Department [place] [address] * Hepatitis B Surface Antigen Blood (02/26/2024 2:36 PM MOTION GRAPHICS DESIGNER) HepBsAg Nonreactive Nonreactive Blood 02/26/2024 2:36 PM MOTION GRAPHICS DESIGNER 02/26/2024 2:45 PM MOTION GRAPHICS DESIGNER Kevon grimm MD LAB MICROBIOLOGY - GENERAL ORDERABLES Final Result Performing Organization Address [facility] Co de Phone Number [facility] Department [place] [address] * MANAGER [employer] Evaluate and Treat (FEES) (02/26/2024 9:59 AM MOTION GRAPHICS DESIGNER) Narrative [facility] - 02/26/2024 9:59 AM MOTION GRAPHICS DESIGNER Chika Fish, MANAGER [employer] ? 02/26/2024 11:21 AM Speech-Language Pathology: Flexible [...] liquids per pt report General Information Trisha Jolie Mariann 02/26/24 General Observations: Pt seen sitting upright [...] Solids Recommendation: Mechanical soft Diet Liquids Recommendations: Juliette thick (No ice in drinks, no ice [...] with puree or solids. With pt's permission, MANAGER [employer] called pt's son to update son on [...] deficits Secretions: Minimal Consistencies Administered: Thin liquids, Juliette thick liquids, Purees, Solids Thin Liquids: Laryngeal Penetration: Present Aspiration Present: ??(suspect posterior aspiration) Timing: Before, After Amount: Moderate Response to aspiration: None Cough: Non-productive Unsuccessful Modifications: Chin tuck, Repeat swallow, Cough Penetration Aspiration Scale-Thin: 8-Material enters the airway, passes below the vocal folds and no effort is made to eject Belton Scale-Vallecular Residue-Thin Liquids: Mild Belton Scale-Pyriform Sinus Residue-Thin Liquids: Mild Juliette Thickened Liquids: Laryngeal Penetration: Present Aspiration Present: No Successful Modifications: Repeat swallow Unsuccessful Modifications: Cough Penetration Aspiration Scale-Juliette: 3-Material enters the airway, remains above the vocal folds and is not ejected from the airway Yen Scale-Vallecular Residue-Juliette Thickened Liquids: Trace Belton Scale-Pyriform Sinus Residue-Juliette Thickened Liquids: Trace Purees: Laryngeal Penetration: None Aspiration Present: No Penetration Aspiration Scale-Puree: 1-Material does not enter airway Solids: Laryngeal Penetration: None Aspiration Present: No Penetration Aspiration Scale-Solids: 1-Material does not enter airway Yen Scale-Vallecular Residue-Solids: None Belton Scale-Pyriform Sinus Residue-Solids: None Dysphagia Outcome and Severity Scale: Dysphagia Outcomes and Severity Scale: 5 Mild dysphagia Levels 1 & 2 on the RALPH indicate need for nonoral nutrition. Treatment Treatment was not provided this date. Please reference care plan for treatment goals and details, if indicated. Plan [employer] Frequency of Services during current admission: 2-4x/wk [employer] Recommendation (Add'l Services): Inpatient Rehab Facility Next Visit Plan:treatment/therapy Additional Referrals: PT/OT Discharge Summary Statement If this is the last swallow therapy visit, this serves as the discharge summary. us Angle La MD PhD [employer] ORDERABLES Fi nal Result [facility] * (ABNORMAL) eGFR (02/25/2024 10:53 PM MOTION GRAPHICS DESIGNER) eGFR 7(L) >=60 mL/min/1. 73 m2 Comment: [...] reviewed 2021. Blood 02/25/2024 10:5 3 PM MOTION GRAPHICS DESIGNER 02/25/2024 11:27 PM MOTION GRAPHICS DESIGNER us Angle La MD PhD LAB BLOOD ORDERABL ES Final Result [facility] Department [place] [address] * (ABNORMAL) Basic metabolic panel (02/25/2024 10:53 PM MOTION GRAPHICS DESIGNER) Sodium 141 135 - 145 mmol/L Potassium, pl 4.7 3.3 - 4.9 mmol/L [facility] Chloride 106 97 - 110 mmol/L [facility] CO2 25 22 - 32 mmol/L [facility] Anion gap 10 2 - 15 mmol/L [facility] BUN 36(H) 6 - 25 mg/dL [facility] Creatinine 6.26(H) 0.60 - 1.10 mg/dL [facility] Glucose 108 70 - 199 mg/dL [facility] Comment: Interpretive Data Fasting glucose >/= 126 [...] 2022. Calcium 9.7 8.5 - 10.3 mg/dL [facility] Blood 02/25/2024 10:5 3 PM MOTION GRAPHICS DESIGNER 02/25/2024 11:27 PM MOTION GRAPHICS DESIGNER us Angle La MD PhD LAB BLOOD ORDERABL ES Final Result [facility] Department [place] [address] * (ABNORMAL) CBC without differential (02/25/2024 9:45 PM MOTION GRAPHICS DESIGNER) WBC 11.5(H) 3.8 - 9.9 K/cumm Hgb 10.8(L) 11.9 - 15.5 g/dL [facility] Hct 32.7(L) 35.6 - 45.5 % [facility] Plt 244 150 - 400 K/cumm [facility] MPV 9.5 9.1 - 12.3 fL [facility] RBC 3.15(L) 3.90 - 5.20 M/cumm [facility] MCV 103.8(H) 81.3 - 96.4 fL [facility] MCH 34.3(H) 27.1 - 33.3 pg [facility] MCHC 33.0 32.3 - 35.7 g/dL [facility] RDW CV 13.2 11.1 - 14.9 % [facility] RDW SD 50.4(H) 35.7 - 48.1 fL [facility] NRBC abs 0.00 0.00 - 0.01 K/cumm [facility] Blood 02/25/2024 9:45 PM MOTION GRAPHICS DESIGNER 02/25/2024 10:39 PM MOTION GRAPHICS DESIGNER us Fabiana Wilson MD LAB BLOOD ORDERABLES Final Result Performing Organization Address [facility] Co de Phone Number [facility] Department [place] [address] * (ABNORMAL) Blood gas, venous (02/25/2024 11:18 AM MOTION GRAPHICS DESIGNER) pH, Venous 7.36 7.32 - 7.43 PCO2, Venous 36(L) 40 - 50 mmHg [facility] PO2, Venous 47 mmHg [facility] Comment: Interpretive Data No Reference Range Established Current Interpretive Data was last revised on 2017. HCO3 Venous, Calculated 21 20 - 30 mmol/L [facility] BE, venous -4 mmol/L [facility] Comment: Interpretive Data No Reference Range Established Current Interpretive Data was last revised on 2017. Blood 02/25/2024 11:1 8 AM MOTION GRAPHICS DESIGNER 02/25/2024 11:25 AM MOTION GRAPHICS DESIGNER Angle La MD PhD LAB BLOOD ORDERABL ES Final Result Performing Organization Address [facility] Co de Phone Number [facility] Department [place] [address] * ECG 12 lead (02/25/2024 11:07 AM MOTION GRAPHICS DESIGNER) Ventricular Rate EKG/Min 72 BPM [facility] Atrial Rate 72 BPM [facility] ID-Interval (MSEC) 144 ms [facility] QRS-Interval (MSEC) 88 ms [facility] QT-Interval (MSEC) 428 ms [facility] QTc 468 ms [facility] P [place] 48 degrees [facility] R [place] -68 degrees [facility] T [place] 52 degrees [facility] Diagnosis Normal sinus rhythm Left axis deviation Inferior infarct (cited on or before 23-FEB-2024) Abnormal ECG Confirmed by Siomara Espinoza MD ([id number]) on 02/26/2024 12:39:03 AM [facility] 02/25/2024 11:0 7 AM MOTION GRAPHICS DESIGNER 02/26/2024 12:39 AM MOTION GRAPHICS DESIGNER us Angle La MD PhD ECG ORDERABLES Fi nal Result [facility] * (ABNORMAL) eGFR (02/24/2024 8:10 PM MOTION GRAPHICS DESIGNER) eGFR 8(L) >=60 mL/min/1. 73 m2 Comment: [...] last reviewed 2021. Blood 02/24/2024 8:10 PM MOTION GRAPHICS DESIGNER 02/24/2024 8:26 PM MOTION GRAPHICS DESIGNER us Fabiana Wilson MD LAB BLOOD ORDERABLES Final Result [facility] Department [place] [address] * Calcium, ionized (02/24/2024 8:10 PM MOTION GRAPHICS DESIGNER) Calcium, Ionized 4.55 4.50 - 5.10 mg/dL Blood 02/24/2024 8:10 PM MOTION GRAPHICS DESIGNER 02/24/2024 8:22 PM MOTION GRAPHICS DESIGNER Laly Clements NP LAB BLOOD ORDERABLES Final Result Performing Organization Address City/[facility]/ZIP Co de Phone Number [facility] Department [place] [address] * (ABNORMAL) Basic metabolic panel (02/24/2024 8:10 PM MOTION GRAPHICS DESIGNER) Pathologist [facility] Sodium 141 135 - 145 mmol/L Potassium, pl 4.8 3.3 - 4.9 mmol/L [facility] Chloride 100 97 - 110 mmol/L [facility] CO2 27 22 - 32 mmol/L [facility] Anion gap 14 2 - 15 mmol/L [facility] BUN 32(H) 6 - 25 mg/dL [facility] Creatinine 5.37(H) 0.60 - 1.10 mg/dL [facility] Glucose 99 70 - 199 mg/dL [facility] Comment: Interpretive Data Fasting glucose >/= 126 [...] 2022. Calcium 9.3 8.5 - 10.3 mg/dL [facility] Blood 02/24/2024 8:10 PM MOTION GRAPHICS DESIGNER 02/24/2024 8:26 PM MOTION GRAPHICS DESIGNER Fabiana Wilson MD LAB BLOOD ORDERABLES Final Result Performing Organization Address [facility] Co de Phone Number [facility] Department [place] [address] * (ABNORMAL) CBC without differential (02/24/2024 8:10 PM MOTION GRAPHICS DESIGNER) [facility] WBC 10.0(H) 3.8 - 9.9 K/cumm Hgb 10.4(L) 11.9 - 15.5 g/dL [facility] Hct 31.6(L) 35.6 - 45.5 % [facility] Plt 228 150 - 400 K/cumm [facility] MPV 9.8 9.1 - 12.3 fL [facility] RBC 3.06(L) 3.90 - 5.20 M/cumm [facility] MCV 103.3(H) 81.3 - 96.4 fL [facility] MCH 34.0(H) 27.1 - 33.3 pg [facility] MCHC 32.9 32.3 - 35.7 g/dL [facility] RDW CV 13.5 11.1 - 14.9 % [facility] RDW SD 51.5(H) 35.7 - 48.1 fL [facility] NRBC abs 0.00 0.00 - 0.01 K/cumm [facility] Blood 02/24/2024 8:10 PM MOTION GRAPHICS DESIGNER 02/24/2024 8:26 PM MOTION GRAPHICS DESIGNER Fabiana Wilson MD LAB BLOOD ORDERABLES Final Result [facility] Department [place] [address] * (ABNORMAL) Drugs of Abuse Screen, Urine with Reflex Confirmation (02/24/2024 1:51 AM MOTION GRAPHICS DESIGNER) Pathologist [facility] Amphetamine, ur Not Detected CutOff 500ng/mL Comment: Interpretive Data - Amphetamines: ??Samples containing greater than 500 ng/mL d-methamphetamine ??or other cross-reacting amphetamine compounds are reported as positive. ??Amphetamine immunoassays are subject to significant false positive rates due to cross-reactivity of non-amphetamine drugs. Confirmatory testing required for definitive results. Current Interpretive Data was last reviewed 2022. Barbiturates, ur Not Detected CutOff 200ng/mL [facility] Comment: Interpretive Data - Barbiturates: ??Samples containing greater than 200 ng/mL secobarbital or other cross-reacting barbiturate compounds are reported as positive. ??False positive and false negative results are possible. Confirmatory testing required for definitive results. Current Interpretive Data was last reviewed 2022. Benzodiazepines, ur Not Detected CutOff 100ng/mL [facility] Comment: Interpretive Data - Benzodiazepines: ??Samples containing greater than 100 ng/mL nordiazepam or other cross-reacting compounds are reported as positive. False positive and false negative results are possible. Confirmatory testing required for definitive results. Current Interpretive Data was last reviewed 2022. Cannabinoids, ur Screen Positive, presumptive (A) CutOff 50 ng/mL [facility] Comment: Interpretive Data - Cannabinoids: ??Samples containing greater than 50 ng/mL delta-9 THC -COOH or other cross-reacting compounds are reported as positive. ??False positive and false negative results are possible. ??Confirmatory testing required for definitive results. Current Interpretive Data was last reviewed 2022. Cocaine, ur Not Detected CutOff 150ng/mL [facility] Comment: Interpretive Data - Cocaine: ??Samples containing greater than 150 ng/mL benzoylecgonine or other cross-reacting compounds are reported as positive. False positive and false negative results are possible. Confirmatory testing required for definitive results. Current Interpretive Data was last reviewed 2022. Fentanyl, Ur Not Detected CutOff 5 ng/mL [facility] Comment: Interpretive Data - Fentanyl: ?? Samples containing greater than 5 ng/mL norfentanyl, fentanyl, or other cross-reacting fentanyl compounds are reported as positive. False positive and false negative results are possible. Confirmatory testing required for definitive results. Current Interpretive Data was last reviewed 2023. Methadone, ur Not Detected CutOff 300ng/mL [facility] Comment: Interpretive Data - Methadone: ??Samples containing greater than 300 ng/mL d,l-methadone or other cross-reacting compounds are reported as positive. ??False positive and false negative results are possible. Confirmatory testing required for definitive results. Current Interpretive Data was last reviewed 2022. Opiates, ur Not Detected CutOff 300ng/mL [facility] Comment: Interpretive Data - Opiates: ??Samples containing greater than 300 ng/mL morphine or other cross-reacting compounds are reported as positive. ??False positive and false negative results are possible. Confirmatory testing required for definitive results. Current Interpretive Data was last reviewed 2022. Oxycodone, ur Not Detected CutOff 100ng/mL [facility] Comment: Interpretive Data - Oxycodone: ??Samples containing greater than 100 ng/mL oxycodone or other cross-reacting compounds are reported as ??positive. ??False positive and false negative results are possible. Confirmatory testing required for definitive results. Current Interpretive Data was last reviewed 2022. Phencyclidine, ur Not Detected CutOff 25 ng/mL [facility] Comment: Interpretive Data - Phencyclidine: ??Samples containing greater than 25 ng/mL phencyclidine or other cross-reacting compounds are reported as positive. ??False positive and false negative results are possible. Confirmatory testing required for definitive results. Current Interpretive Data was last reviewed 2022. Urine Creatinine 51 mg/dL [facility] Comment: Interpretive Data Urine Creatinine: < 10 mg/dL is extremely dilute = or > 10 but < 20 mg/dL is dilute = or > 20 mg/dL is normal Current Interpretive Data was last revised on 2017. Urine 02/24/2024 1:51 AM MOTION GRAPHICS DESIGNER 02/24/2024 6:04 AM MOTION GRAPHICS DESIGNER Fabiana Wilson MD LAB URINE ORDERABLES Final Result [facility] Department [place] [address] * (ABNORMAL) Urinalysis, microscopic only (02/24/2024 1:51 AM MOTION GRAPHICS DESIGNER) WBC, ur 0-5 0 - 5 /HPF RBC, ur 3-5(A) 0 - 2 /HPF [facility] Epithelial cells, squamous, ur 1-5 0 - 5 /HPF [facility] Bacteria, ur Trace(A) [facility] Culture Reflex Comment Reflex conditions for urine culture (WBC >10) not met. [facility] Urine 02/24/2024 1:51 AM MOTION GRAPHICS DESIGNER 02/24/2024 5:36 AM MOTION GRAPHICS DESIGNER Fabiana Wilson MD LAB URINE ORDERABLES Final Result Performing Organization Address City/[facility]/ZIP Co de Phone Number [facility] Department [place] [address] * (ABNORMAL) Urinalysis reflex to microscopic and culture Urine (02/24/2024 1:51 AM MOTION GRAPHICS DESIGNER) Color, ur Straw Yellow Clarity, ur Clear Clear [facility] Specific gravity, ur 1.024 1.003 - 1.030 [facility] pH, urine 8.0 [facility] Comment: Interpretive Data ? Urine pH is affected by diet, medications, systemic acid-base disturbances, and renal tubular function. ??pH may affect urinary stone formation. ??For example, urine pH below 6.0 may help reduce the tendency for calcium phosphate stones and pH greater than 6.0 may reduce the tendency for uric acid stone formation. Source: [facility] Current Interpretive Data was last revised on 2017 Protein, ur ql 1+(A) Negative [facility] Glucose, ur ql Negative Negative [facility] Ketones, ur Negative Negative [facility] Bilirubin, ur Negative Negative [facility] Blood, ur Negative Negative [facility] Urobilinogen, ur <2.0 <2.0 mg/dL [facility] Nitrite, ur Negative Negative [facility] Leukocyte esterase, ur Negative Negative [facility] UA reflex comment Reflex to microscopic UA will be performed. [facility] Urine 02/24/2024 1:51 AM MOTION GRAPHICS DESIGNER 02/24/2024 5:36 AM MOTION GRAPHICS DESIGNER Fabiana Wilson MD LAB MICROBIOLOGY - GENERAL ORDERABLES Final Result [facility] [place] [address] * EEG (02/24/2024 1:16 AM MOTION GRAPHICS DESIGNER) Anatomical Region Laterality Modality EEG Narrative 02/24/2024 10:46 AM MOTION GRAPHICS DESIGNER Routine EEG Report Patient Name: Trisha Waite [facility] Medical Record Number (MRN): [id number] [facility] Record: No [facility]arian MRN Date of (): [...] 32 channel EEG recording acquired on a [employer] EEG-1200 acquisition system. Scalp electrodes were placed [...] Result * Check Sample (02/24/2024 12:05 AM MOTION GRAPHICS DESIGNER) ABO Rh O Positive [facility] OTHER 02/24/2024 12:0 5 AM MOTION GRAPHICS DESIGNER 02/24/2024 1:30 AM MOTION GRAPHICS DESIGNER Result [facility] Fabiana Wilson MD LAB BLOOD ORDERABLES Final Result Performing Organization Address City/[facility]/ZIP Co de Phone Number [facility] Department [place] [address] [facility] * (ABNORMAL) Calcium, ionized (02/23/2024 10:47 PM MOTION GRAPHICS DESIGNER) Pathologist [facility] Calcium, Ionized 3.82(L) 4.50 - 5.10 mg/dL Blood 02/23/2024 10:4 7 PM MOTION GRAPHICS DESIGNER 02/23/2024 11:34 PM MOTION GRAPHICS DESIGNER Result [facility] Fabiana Wilson MD LAB BLOOD ORDERABLES Final Result Performing Organization Address [facility] de Phone Number [facility] Department [place] [address] * Troponin I high-sensitivity 4-hour (02/23/2024 10:47 PM MOTION GRAPHICS DESIGNER) Pathologist [facility] Trop I hs 5 <=17 ng/L Comment: Interpretive Data For further hscTnI resources including the diagnostic algorithm and an aid in interpretation, copy and paste this link: [email or web address]/[email or web address] Current Interpretive Data last revised 2019. Trop I hs delta -1 ng/L [facility] Trop I hs interp Insignificant [facility] Blood 02/23/2024 10:4 7 PM MOTION GRAPHICS DESIGNER 02/23/2024 11:47 PM MOTION GRAPHICS DESIGNER Fabiana Wilson MD LAB BLOOD ORDERABLES Final Result Performing Organization Address [facility] de [place] [address] * Hemoglobin A1c (02/23/2024 9:23 PM MOTION GRAPHICS DESIGNER) [facility] Hgb A1C 5.2 4.0 - 5.6 % Estimated Average Glucose 103 mg/dL [facility] Comment: The ADA recommends reporting an estimated Average Glucose (eAG) with all Hemoglobin A1c results using the equation derived from a study of 507 normal and diabetic adults. ??Minority populations were underrepresented and children were not included. ?? (Diabetes Care 2020; 43(S1): S66-S76). ??The eAG is not equivalent to a fasting glucose. Blood 02/23/2024 9:23 PM MOTION GRAPHICS DESIGNER 02/23/2024 10:53 PM MOTION GRAPHICS DESIGNER Fabiana Wilson MD LAB BLOOD ORDERABLES Final Result Performing Organization Address [facility] de Phone Number [facility] Department [place] [employer] [place] [address] * Lipid panel (02/23/2024 9:23 PM MOTION GRAPHICS DESIGNER) [facility] Cholesterol 103 30 - 199 mg/dL Comment: [...] revised on 2017. Triglycerides 71 <=149 mg/dL [facility] Comment: Interpretive Data Ages < or = [...] revised on 2017. HDL 43 >=40 mg/dL [facility] Comment: Interpretive Data Ages < or = [...] on 2017. LDL, calculated 45 <=129 mg/dL [facility] Comment: Interpretive Data Ages < or = [...] revised on 2023. Non-HDL Cholesterol 60 mg/dL [facility] Comment: Interpretive Data Ages < or = [...] last revised on 2017. [facility] Blood 02/23/2024 9:23 PM MOTION GRAPHICS DESIGNER 02/23/2024 10:49 PM MOTION GRAPHICS DESIGNER us Fabiana Wilson MD LAB BLOOD ORDERABLES Final Result [facility] Department [place] [address] * (ABNORMAL) eGFR (02/23/2024 9:23 PM MOTION GRAPHICS DESIGNER) eGFR 11(L) >=60 mL/min/1. 73 m2 Comment: [...] last reviewed 2021. Blood 02/23/2024 9:23 PM MOTION GRAPHICS DESIGNER 02/23/2024 10:49 PM MOTION GRAPHICS DESIGNER us Fabiana Wilson MD LAB BLOOD ORDERABLES Final Result [facility] Department of Laboratories [place], [place] [id number] * Phosphorus (02/23/2024 9:23 PM MOTION GRAPHICS DESIGNER) Phosphorus, pl 4.4 2.3 - 4.5 mg/dL Blood 02/23/2024 9:23 PM MOTION GRAPHICS DESIGNER 02/23/2024 10:49 PM MOTION GRAPHICS DESIGNER Fabiana Wilson MD LAB BLOOD ORDERABLES Final Result Performing Organization Address City/[facility]/ZIP Co de Phone Number [facility] Department [place] [address] * Magnesium (02/23/2024 9:23 PM MOTION GRAPHICS DESIGNER) Pathologist [facility] Magnesium 2.1 1.4 - 2.5 mg/dL Blood 02/23/2024 9:23 PM MOTION GRAPHICS DESIGNER 02/23/2024 10:49 PM MOTION GRAPHICS DESIGNER Fabiana Wilson MD LAB BLOOD ORDERABLES Final Result Performing Organization Address [facility] de Phone Number [facility] Department [place] [address] * (ABNORMAL) Comprehensive metabolic panel (02/23/2024 9:23 PM MOTION GRAPHICS DESIGNER) [facility] Sodium 139 135 - 145 mmol/L Potassium, pl 4.1 3.3 - 4.9 mmol/L [facility] Chloride 102 97 - 110 mmol/L [facility] CO2 28 22 - 32 mmol/L [facility] Anion gap 9 2 - 15 mmol/L [facility] BUN 18 6 - 25 mg/dL [facility] Creatinine 4.00(H) 0.60 - 1.10 mg/dL [facility] Glucose 86 70 - 199 mg/dL [facility] Comment: Interpretive Data Fasting glucose >/= 126 [...] 2022. Calcium 7.9(L) 8.5 - 10.3 mg/dL [facility] Bilirubin, total 0.3 0.1 - 1.2 mg/dL [facility] Protein, pl 5.7(L) 6.5 - 8.5 g/dL [facility] Albumin 3.1(L) 3.5 - 5.0 g/dL [facility] Alk phos 62 40 - 130 Units/L [facility] ALT 5(L) 7 - 45 Units/L [facility] Comment:Repeated and Verifie d AST 15 10 - 45 Units/L [facility] Blood 02/23/2024 9:23 PM MOTION GRAPHICS DESIGNER 02/23/2024 10:49 PM MOTION GRAPHICS DESIGNER Fabiana Wilson MD LAB BLOOD ORDERABLES Final Result Performing Organization Address [facility] de Phone Number [facility] [place] [address] * Protime-INR (02/23/2024 9:23 PM MOTION GRAPHICS DESIGNER) PT 10.8 9.7 - 13.0 sec INR 1.00 0.90 - 1.20 [facility] Comment: Interpretive data Oral anticoagulant therapeutic ranges: Venous thromboembolism prophylaxis or treatment: 2.0-3.0 CARDIOLOGY Standard range: 2.0-3.0 High-intensity range: 2.5-3.5 Refer to indication-specific guidelines for appropriate target ranges for prosthetic heart valve replacement. Current interpretive data was last revised on 2019. Blood 02/23/2024 9:23 PM MOTION GRAPHICS DESIGNER 02/23/2024 10:40 PM MOTION GRAPHICS DESIGNER Fabiana Wilson MD LAB BLOOD ORDERABLES Final Result Performing Organization Address City/[facility]/ZIP Co de Phone Number [facility] [place] [address] * (ABNORMAL) aPTT (02/23/2024 9:23 PM MOTION GRAPHICS DESIGNER) aPTT 25(L) 28 - 38 sec Comment: Interpretive Data Heparin therapeutic range: 66.0 - 100.0 seconds. Range based on correlation with therapeutic heparin activity range of 0.3 - 0.7 Units/mL. Current interpretive data was last revised on 2022. Blood 02/23/2024 9:23 PM MOTION GRAPHICS DESIGNER 02/23/2024 10:40 PM MOTION GRAPHICS DESIGNER Fabiana Wilson MD LAB BLOOD ORDERABLES Final Result [facility] Department [place] [address] * Type and screen (02/23/2024 9:23 PM MOTION GRAPHICS DESIGNER) [facility] ABO Rh O Positive Jose Carlos, indirect Negative [facility] Blood 02/23/2024 9:23 PM MOTION GRAPHICS DESIGNER 02/23/2024 11:06 PM MOTION GRAPHICS DESIGNER Narrative [facility] - 02/23/2024 11:57 PM MOTION GRAPHICS DESIGNER Has the patient had Daratumumab or Isatuximab in the past 6 months?->Unknown Fabiana Wilson MD LAB BLOOD BANK TEST ORDERAB LES Final Result Performing Organization Address [facility] Co de Phone Number [facility] Department [place] [address] * (ABNORMAL) CBC without differential (02/23/2024 9:23 PM MOTION GRAPHICS DESIGNER) [facility] WBC 8.5 3.8 - 9.9 K/cumm Hgb 10.1(L) 11.9 - 15.5 g/dL [facility] Hct 31.5(L) 35.6 - 45.5 % [facility] Plt 202 150 - 400 K/cumm [facility] MPV 9.9 9.1 - 12.3 fL [facility] RBC 2.99(L) 3.90 - 5.20 M/cumm [facility] MCV 105.4(H) 81.3 - 96.4 fL [facility] MCH 33.8(H) 27.1 - 33.3 pg [facility] MCHC 32.1(L) 32.3 - 35.7 g/dL [facility] RDW CV 13.3 11.1 - 14.9 % [facility] RDW SD 51.3(H) 35.7 - 48.1 fL [facility] NRBC abs 0.00 0.00 - 0.01 K/cumm [facility] Blood 02/23/2024 9:23 PM MOTION GRAPHICS DESIGNER 02/23/2024 10:49 PM MOTION GRAPHICS DESIGNER Fabiana Wilson MD LAB BLOOD ORDERABLES Final Result Performing Organization Address [facility] Co de Phone Number [facility] Department [place] [employer] [place] [address] * Troponin I high-sensitivity 2-hour (02/23/2024 9:23 PM MOTION GRAPHICS DESIGNER) [facility] Trop I hs 6 <=17 ng/L Comment: Interpretive Data For further hscTnI resources including the diagnostic algorithm and an aid in interpretation, copy and paste this link: https://bjhlab.testcatalog.org/show/[email or web address]-[email or web address] Current Interpretive Data last revised 2019. Trop I hs delta 0 ng/L [facility] Trop I hs interp Insignificant [facility] Blood 02/23/2024 9:23 PM MOTION GRAPHICS DESIGNER 02/23/2024 10:50 PM MOTION GRAPHICS DESIGNER Fabiana Wilson MD LAB BLOOD ORDERABLES Final Result Performing Organization Address [facility]/ZIP Co de Phone Number [facility] [place] [employer] [place] [address] * Respiratory pathogen panel Nasopharyngeal (02/23/2024 8:58 PM MOTION GRAPHICS DESIGNER) [facility] Influenza A RNA Not Detected Not Detected Influenza B RNA Not Detected Not Detected [facility] RSV RNA Not Detected Not Detected [facility] COVID-19 RNA Not Detected Not Detected [facility] Coronavirus 229E RNA Not Detected Not Detected [facility] Coronavirus HKU1 RNA Not Detected Not Detected [facility] Coronavirus NL63 RNA Not Detected Not Detected [facility] Coronavirus OC43 RNA Not Detected Not Detected [facility] Adenovirus DNA Not Detected Not Detected [facility] Metapneumovirus RNA Not Detected Not Detected [facility] Rhinovirus/Enterov irus RNA Not Detected Not Detected [facility] Parainfluenza 1 RNA Not Detected Not Detected [facility] Parainfluenza 2 RNA Not Detected Not Detected [facility] Parainfluenza 3 RNA Not Detected Not Detected [facility] Parainfluenza 4 RNA Not Detected Not Detected [facility] B. pertussis DNA Not Detected Not Detected [facility] B. parapertussis DNA Not Detected Not Detected [facility] C. pneumoniae DNA Not Detected Not Detected [facility] M. pneumoniae DNA Not Detected Not Detected [facility] Nasopharyngeal 02/23/2024 8: 58 PM MOTION GRAPHICS DESIGNER 02/23/2024 10:57 PM MOTION GRAPHICS DESIGNER Narrative [facility] - 02/24/2024 12:09 AM MOTION GRAPHICS DESIGNER Is the Patient experiencing symptoms consistent with COVID?->No Surveillance testing for transplant patient?->No ??Interpretive Data The [employer] Film[employer] Respiratory Panel (RP2.1) assay is a [...] assay has FDA clearance for testing of FRUIT STUFFER swabs. ??The performance of additional specimen types has been assessed by the performing laboratory. ??The performance characteristics of this assay have been determined by [facility] Molecular Infectious Disease Laboratory. Current interpretive data was last revised on 21. Fabiana Wilson MD LAB MICROBIOLOGY - GENERAL ORDERABLES Final Result ALEXANDER PATTON [facility] Department [place] [address] * Blood culture Blood (02/23/2024 8:58 PM MOTION GRAPHICS DESIGNER) Report Final Report: No growth Blood 02/23/2024 8:58 PM MOTION GRAPHICS DESIGNER 02/24/2024 12:25 AM MOTION GRAPHICS DESIGNER Narrative ALEXANDER [facility] - 02/28/2024 7:00 AM MOTION GRAPHICS DESIGNER Second site Collection->Peripheral 1. ?Blood cultures are [...] performance characteristics have been verified by the [facility] Microbiology Laboratory. For questions about this culture, contact the Microbiology Laboratory at [phone]. Interpretive data was last revised on 24. us Fabiana Wilson MD LAB MICROBIOLOGY - GENERAL ORDERABLES Final Result ALEXANDER DOROTHY [facility] Department [place] [address] * Blood culture Blood (02/23/2024 8:58 PM MOTION GRAPHICS DESIGNER) Report Final Report: No growth Blood 02/23/2024 8:58 PM MOTION GRAPHICS DESIGNER 02/24/2024 12:25 AM MOTION GRAPHICS DESIGNER Narrative RAVICODY [facility] - 02/28/2024 7:00 AM MOTION GRAPHICS DESIGNER Collection->Peripheral 1. ?Blood cultures are incubated for [...] performance characteristics have been verified by the [facility] Microbiology Laboratory. For questions about this culture, contact the Microbiology Laboratory at [phone]. Interpretive data was last revised on 24. Fabiana Wilson MD LAB MICROBIOLOGY - GENERAL ORDERABLES Final Result ALEXANDER [facility] Department [place] [address] * ECG 12 lead (02/23/2024 8:29 PM MOTION GRAPHICS DESIGNER) Ventricular Rate EKG/Min 65 BPM [facility] Atrial Rate 65 BPM [facility] ID-Interval (MSEC) 144 ms [facility] QRS-Interval (MSEC) 82 ms [facility] QT-Interval (MSEC) 480 ms [facility] QTc 499 ms [facility] P [place] 53 degrees [facility] R [place] -63 degrees [facility] T [place] 43 degrees [facility] Diagnosis Normal sinus rhythm Left axis deviation Inferior infarct , age undetermined Abnormal ECG No previous ECGs available Confirmed by ALFREDO HANNON M.D ([id number]) on 02/25/2024 5:17:23 PM [facility] 02/23/2024 8:29 PM MOTION GRAPHICS DESIGNER 02/25/2024 5:17 PM MOTION GRAPHICS DESIGNER Fabiana Wilson MD ECG ORDERABLES Final Resul t [facility] * POCT glucose (02/23/2024 8:20 PM MOTION GRAPHICS DESIGNER) Glucose, POC 93 70 - 199 mg/dL Blood 02/23/2024 8:20 PM MOTION GRAPHICS DESIGNER 02/23/2024 8:20 PM MOTION GRAPHICS DESIGNER us Fabiana Wilson MD LAB POCT ORDERABLES - DEVIC E Final Result ALEXANDER GOMEZ [facility] Department [place] [address] * MRI Brain WO Contrast (02/23/2024 8:07 PM MOTION GRAPHICS DESIGNER) Anatomical Region Laterality Modality Head and Neck N/A Magnetic Resonan ce 02/23/2024 8:19 PM MOTION GRAPHICS DESIGNER Impressions 02/24/2024 8:32 AM MOTION GRAPHICS DESIGNER 1. ??No acute infarct or convincing evidence [...] Jesu Barker MD Narrative 02/24/2024 8:32 AM MOTION GRAPHICS DESIGNER EXAMINATION: Magnetic resonance imaging (MRI) of the [...] XR Chest 1 View (02/23/2024 7:36 PM MOTION GRAPHICS DESIGNER) Anatomical Region Laterality Modality Body, Chest N/A Digital Radiogra phy 02/23/2024 8:30 PM MOTION GRAPHICS DESIGNER Impressions 02/23/2024 8:30 PM MOTION GRAPHICS DESIGNER Comparison to 02/27/2023. Loop recorder noted. ??Left-sided central venous catheter with tip over the superior cavoatrial junction. ??Heart size is normal. Prominent mediastinal fat is again seen. ??Curvilinear opacities in the right midlung in the right lung base, likely scarring/atelectasis. ??No effusion or pneumothorax. Electronically signed by: Chacho Martini M.D. Narrative 02/23/2024 8:30 PM MOTION GRAPHICS DESIGNER EXAMINATION: 1 view chest radiograph Procedure Note [...] * (ABNORMAL) ECG 12-LEAD (02/23/2024 7:00 PM MOTION GRAPHICS DESIGNER) Narrative MUSE [facility] - 02/23/2024 7:00 PM MOTION GRAPHICS DESIGNER Fabiana Wilson MD ? 02/23/2024 ??7:01 PM [...] the ED Fabiana Wilson MD 02/23/24 1901 us Fabiana Wilson MD ECG ORDERABLES Final Resul t [facility] * ID CRITICAL CARE ILL/INJURED PATIENT INIT 30-74 MIN (02/23/2024 6:58 PM MOTION GRAPHICS DESIGNER) Narrative Fabiana Wilson MD - 02/23/2024 6:58 PM MOTION GRAPHICS DESIGNER Fabiana Wilson MD ? 02/26/2024 ??8:32 PM [...] IN CLINIC/BEDSIDE ORDERABLE S Final Result * (ABNORMAL) eGFR (02/23/2024 6:40 PM MOTION GRAPHICS DESIGNER) [facility] eGFR 13(L) >=60 mL/min/1. 73 m2 Comment: [...] last reviewed 2021. Blood 02/23/2024 6:40 PM MOTION GRAPHICS DESIGNER 02/23/2024 6:50 PM MOTION GRAPHICS DESIGNER Fabiana Wilson MD LAB BLOOD ORDERABLES Final Result Performing Organization Address [facility] de Phone Number [facility] Department [place] [address] * Magnesium (02/23/2024 6:40 PM MOTION GRAPHICS DESIGNER) Magnesium 2.0 1.4 - 2.5 mg/dL Blood 02/23/2024 6:40 PM MOTION GRAPHICS DESIGNER 02/23/2024 6:50 PM MOTION GRAPHICS DESIGNER Radha Quintanilla MD LAB BLOOD ORDERABLES Fi nal Result Performing Organization Address [facility] Co de Phone Number [facility] Department [place] [address] * (ABNORMAL) Differential, auto (02/23/2024 6:40 PM MOTION GRAPHICS DESIGNER) Neutrophil abs 6.6(H) 1.5 - 6.5 K/cumm Imm gran abs 0.1 0.0 - 0.1 K/cumm [facility] Lymphocyte abs 1.0 0.8 - 3.3 K/cumm [facility] Monocyte abs 1.0(H) 0.2 - 0.8 K/cumm [facility] Eosinophil abs 0.2 0.0 - 0.5 K/cumm [facility] Basophil abs 0.0 0.0 - 0.1 K/cumm [facility] Neutrophil pct 74.4 % [facility] Comment: Interpretive Data Percent cell count reference ranges are not reported, since discordance with absolute values may lead to misinterpretation of CBC data. Current Interpretive Data was last revised on 2017. Imm gran pct 0.8 % [facility] Comment: Interpretive Data Percent cell count reference ranges are not reported, since discordance with absolute values may lead to misinterpretation of CBC data. Current Interpretive Data was last revised on 2017. Lymphocyte pct 11.3 % [facility] Comment: Interpretive Data Percent cell count reference ranges are not reported, since discordance with absolute values may lead to misinterpretation of CBC data. Current Interpretive Data was last revised on 2017. Monocyte pct 10.7 % [facility] Comment: Interpretive Data Percent cell count reference ranges are not reported, since discordance with absolute values may lead to misinterpretation of CBC data. Current Interpretive Data was last revised on 2017. Eosinophil pct 2.3 % [facility] Comment: Interpretive Data Percent cell count reference ranges are not reported, since discordance with absolute values may lead to misinterpretation of CBC data. Current Interpretive Data was last revised on 2017. Basophil pct 0.5 % [facility] Comment: Interpretive Data Percent cell count reference ranges are not reported, since discordance with absolute values may lead to misinterpretation of CBC data. Current Interpretive Data was last revised on 2017. Blood 02/23/2024 6:40 PM MOTION GRAPHICS DESIGNER 02/23/2024 6:50 PM MOTION GRAPHICS DESIGNER Fabiana Wilson MD LAB BLOOD ORDERABLES Final Result Performing Organization Address [facility] [place] [address] * Troponin I high-sensitivity series (baseline, 2hr, 4hr, 6hr) (02/23/2024 6:40 PM MOTION GRAPHICS DESIGNER) Trop I hs 6 <=17 ng/L Comment: Hardy Blue Specimen Interpretive Data For further hscTnI resources including the diagnostic algorithm and an aid in interpretation, copy and paste this link: [email or web address]/[email or web address] Current Interpretive Data last revised 2019. Blood 02/23/2024 6:40 PM MOTION GRAPHICS DESIGNER 02/23/2024 6:50 PM MOTION GRAPHICS DESIGNER Fabiana Wilson MD LAB BLOOD ORDERABLES Final Result Performing Organization Address [facility] Co de Phone Number [facility] [place] [address] * (ABNORMAL) aPTT (02/23/2024 6:40 PM MOTION GRAPHICS DESIGNER) aPTT 24(L) 28 - 38 sec Comment: Hardy Blue Specimen Interpretive Data Heparin therapeutic range: 66.0 - 100.0 seconds. Range based on correlation with therapeutic heparin activity range of 0.3 - 0.7 Units/mL. Current interpretive data was last revised on 2022. Blood (Blood, Venous) 02/23/2024 6:40 PM MOTION GRAPHICS DESIGNER 02/23/2024 6:50 PM MOTION GRAPHICS DESIGNER Narrative [facility] - 02/23/2024 7:08 PM MOTION GRAPHICS DESIGNER Potential stroke patient. Fabiana Wilson MD LAB BLOOD ORDERABLES Final Result [facility] Department [place] [address] * (ABNORMAL) Comprehensive metabolic panel (02/23/2024 6:40 PM MOTION GRAPHICS DESIGNER) Sodium 140 135 - 145 mmol/L Comment:Code Blue Specimen Potassium, pl 3.5 3.3 - 4.9 mmol/L [facility] Comment:Code Blue Specimen Chloride 103 97 - 110 mmol/L [facility] Comment:Code Blue Specimen CO2 27 22 - 32 mmol/L [facility] Comment:Code Blue Specimen Anion gap 10 2 - 15 mmol/L [facility] Comment:Code Blue Specimen BUN 16 6 - 25 mg/dL [facility] Comment:Code Blue Specimen Creatinine 3.65(H) 0.60 - 1.10 mg/dL [facility] Comment:Code Blue Specimen Glucose 93 70 - 199 mg/dL [facility] Comment: Code Blue Specimen Interpretive Data Fasting [...] 2022. Calcium 7.5(L) 8.5 - 10.3 mg/dL [facility] Comment:Code Blue Specimen Bilirubin, total 0.2 0.1 - 1.2 mg/dL [facility] Comment:Code Blue Specimen Protein, pl 5.1(L) 6.5 - 8.5 g/dL [facility] Comment:Code Blue Specimen Albumin 2.9(L) 3.5 - 5.0 g/dL [facility] Comment:Code Blue Specimen Alk phos 53 40 - 130 Units/L [facility] Comment:Code Blue Specimen ALT <5(L) 7 - 45 Units/L [facility] Comment:Code Blue Specimen AST 12 10 - 45 Units/L [facility] Comment:Code Blue Specimen Blood (Blood, Venous) 02/23/2024 6:40 PM MOTION GRAPHICS DESIGNER 02/23/2024 6:50 PM MOTION GRAPHICS DESIGNER Narrative [facility] - 02/23/2024 7:22 PM MOTION GRAPHICS DESIGNER Potential Stroke Patient Fabiana Wilson MD LAB BLOOD ORDERABLES Final Result [facility] Department [place] [address] * (ABNORMAL) CBC with auto differential (02/23/2024 6:40 PM MOTION GRAPHICS DESIGNER) WBC 8.9 3.8 - 9.9 K/cumm Comment:Hardy Blue Specimen Hgb 9.7(L) 11.9 - 15.5 g/dL [facility] Hct 30.5(L) 35.6 - 45.5 % [facility] Plt 180 150 - 400 K/cumm [facility] MPV 9.7 9.1 - 12.3 fL [facility] RBC 2.86(L) 3.90 - 5.20 M/cumm [facility] MCV 106.6(H) 81.3 - 96.4 fL [facility] MCH 33.9(H) 27.1 - 33.3 pg [facility] MCHC 31.8(L) 32.3 - 35.7 g/dL [facility] RDW CV 13.3 11.1 - 14.9 % [facility] RDW SD 52.2(H) 35.7 - 48.1 fL [facility] NRBC abs 0.00 0.00 - 0.01 K/cumm [facility] Blood (Blood, Venous) 02/23/2024 6:40 PM MOTION GRAPHICS DESIGNER 02/23/2024 6:50 PM MOTION GRAPHICS DESIGNER Narrative [facility] - 02/23/2024 6:55 PM MOTION GRAPHICS DESIGNER Potential Stroke Patient Fabiana Wilson MD LAB BLOOD ORDERABLES Final Result [facility] Department [place] [address] * CTA Stroke Head Neck W WO Contrast (02/23/2024 6:35 PM MOTION GRAPHICS DESIGNER) Anatomical Region Laterality Modality Head and Neck N/A Computed Tomogra phy 02/23/2024 7:06 PM MOTION GRAPHICS DESIGNER Impressions 02/23/2024 7:15 PM MOTION GRAPHICS DESIGNER 1. ??Asymmetric calcifications of the left deep [...] Taylor Lundy M.D. Narrative 02/23/2024 7:15 PM MOTION GRAPHICS DESIGNER EXAMINATION: 1. Computed tomography angiography (CTA) of [...] Artery: no occlusion or significant stenosis L ALTERATIONS SEWER: origin of left ALTERATIONS SEWER. R ALTERATIONS SEWER: no occlusion or significant stenosis There is [...] Emphysematous changes are also noted. Procedure Note Taylor Lundy MD - 02/23/2024 EXAMINATION: 1. Computed tomography [...] Artery: no occlusion or significant stenosis L ALTERATIONS SEWER: origin of left ALTERATIONS SEWER. R ALTERATIONS SEWER: no occlusion or significant stenosis There is [...] prothrombin time, whole blood (02/23/2024 6:22 PM MOTION GRAPHICS DESIGNER) PT, POC 12.3 10.6 - 13.5 sec INR, bld, POC 1.0 0.9 - 1.2 [facility] Blood 02/23/2024 6:22 PM MOTION GRAPHICS DESIGNER 02/23/2024 6:22 PM MOTION GRAPHICS DESIGNER Result [facility] Fabiana Wilson MD LAB POCT ORDERABLES - DEVIC E Final Result Performing Organization Address [facility] de Phone Number [facility] Department [place] [employer] [place] [address] * POCT glucose (02/23/2024 6:21 PM MOTION GRAPHICS DESIGNER) Glucose, POC 105 70 - 199 mg/dL Blood 02/23/2024 6:21 PM MOTION GRAPHICS DESIGNER 02/23/2024 6:21 PM MOTION GRAPHICS DESIGNER Result [facility] Fabiana Wilson MD LAB POCT ORDERABLES - DEVIC E Final Result Performing Organization Address [facility] Co de Phone Number [facility] Department [place] [employer] [place] [address] documented in this encounter Visit Diagnoses Diagnosis Stroke-like symptoms- Primary Intracranial hemorrhage (HCC) Unspecified intracranial hemorrhage Stroke-like symptoms Hypotension, unspecified hypotension type Cerebral 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, unspecified site Hemodialysis-associated hypotension Hypotension of hemodialysis ESRD (end stage renal disease) on dialysis (HCC) End stage renal disease Aspiration into airway Neuropathic pain documented in this encounter Admitting Diagnoses Diagnosis Intracranial hemorrhage (HCC) Unspecified intracranial hemorrhage documented in this encounter Administered Medications Inactive Administered Medications - up to 3 most recent administrations Medication Order MAR Action Action Date Dose Rate Site alteplase (CATHFLO ACTIVASE) 2-4 mg in sterile water 4 mL (1 mg/mL) syringe 2-4 mg, intra-catheter, Once, On Sun02/26/24 at 1515, For 1 dose, Dialysis, [place] volume of catheter lumens post treatment. 2 mg/Lumen., Indications: Prevent Occlusion of CatheterIndications:Prevent Occlusion of Catheter Given 02/26/2024 2:46 PM MOTION GRAPHICS DESIGNER 4 mg alteplase (CATHFLO ACTIVASE) 2-4 mg in sterile water 4 mL (1 mg/mL) syringe 2-4 mg, intra-catheter, Once, On Sun02/26/24 at 1630, For 1 dose, Dialysis, [place] volume of catheter lumens post treatment. 2 mg/Lumen., Indications: Prevent Occlusion of CatheterIndications:Prevent Occlusion of Catheter Given 02/26/2024 6:45 PM MOTION GRAPHICS DESIGNER 4 mg alteplase (CATHFLO ACTIVASE) 2-4 mg in sterile water 4 mL (1 mg/mL) syringe 2-4 mg, intra-catheter, Once, On Sun02/29/24 at 0845, For 1 dose, Dialysis, [place] volume of catheter lumens post treatment. 2 mg/Lumen., Indications: Prevent Occlusion of CatheterIndications:Prevent Occlusion of Catheter Given 02/29/2024 11:03 AM MOTION GRAPHICS DESIGNER 2 mg aspirin chewable tablet 81 mg 81 mg, oral, Daily, First dose on Sun02/23/24 at 2207 Given 02/29/2024 11:40 AM MOTION GRAPHICS DESIGNER 81 mg Given 02/28/2024 8:08 AM MOTION GRAPHICS DESIGNER 81 mg Given 02/27/2024 8:45 AM MOTION GRAPHICS DESIGNER 81 mg atorvastatin (LIPITOR) tablet 80 mg 80 mg, oral, Nightly, First dose on 02/23/24 at 2207 Given 02/23/2024 10:32 PM MOTION GRAPHICS DESIGNER 80 mg calcium gluconate 2 g/100 mL in sodium chloride (premix) solution 2 g 2 g, intravenous, Administer over 60 Minutes, Once, On 02/24/24 at 0045, For 1 dose, Room temperature only, Indications: hypocalcemiaIndications:hypocalcemia New Bag 02/24/2024 1:21 AM MOTION GRAPHICS DESIGNER 2 g Carrier Fluids for Secondary Infusion - 0.9% Sodium Chloride 30 mL, intravenous, As needed, For priming tubing and/or flushing, Starting on 02/23/24 at 2050, 0-250 ml/hr to flush line after IV infusions when no maintenance IV ordered. Infuse 30mL at the same rate as the secondary infusion. Run as primary IV, not intended for KVO. docusate sodium (COLACE) capsule 100 mg 100 mg, oral, 2 times daily, First dose on 02/23/24 at 2130, If able to swallow capsules. Hold for diarrhea., Indications: constipation, Stool SoftenerIndications:constipation,Stool Softener Given 02/24/2024 8:22 AM MOTION GRAPHICS DESIGNER 100 mg gabapentin (NEURONTIN) capsule 100 mg 100 mg, oral, 3 times daily, First dose on 02/24/24 at 0900 Given 02/29/2024 11:40 AM MOTION GRAPHICS DESIGNER 100 mg Given 02/28/2024 9:29 PM MOTION GRAPHICS DESIGNER 100 mg Given 02/28/2024 4:52 PM MOTION GRAPHICS DESIGNER 100 mg heparin 5,000 unit/mL injection 5,000 Units 5,000 Units, subcutaneous, Every 8 hours scheduled, First dose on 02/24/24 at 0000, Indications: Deep Vein Thrombosis PreventionIndications:Deep Vein Thrombosis Prevention Given 02/29/2024 12:09 AM MOTION GRAPHICS DESIGNER 5,000 Units Left Lower Abdomen Given 02/28/2024 4:53 PM MOTION GRAPHICS DESIGNER 5,000 Units L eft Lower Abdomen Given 02/28/2024 8:08 AM MOTION GRAPHICS DESIGNER 5,000 Units R ight Lower Abdomen ioversoL (OPTIRAY 350) syringe 125 mL 125 mL, intravenous, Once in imaging, contrast, Starting on 02/23/24 at 1833, For 1 dose Contrast Given 02/23/2024 6:28 PM MOTION GRAPHICS DESIGNER 95 mL ipratropium-albuteroL (DUO-NEB) 0.5-2.5 mg/3 mL nebulizer solution 3 mL 3 mL, nebulization, Every 4 hours PRN (manager social responsibility), wheezing, shortness of breath, Starting on 02/23/24 at 2212 Given 02/23/2024 11:08 PM MOTION GRAPHICS DESIGNER 3 mL ramelteon (ROZEREM) tablet 8 mg 8 mg, oral, Nightly PRN, sleep, Starting on Sun02/26/24 at 2108, Indications: Sleep-Onset InsomniaIndications:Sleep-Onset Insomnia Given 02/26/2024 9:25 PM MOTION GRAPHICS DESIGNER 8 mg senna (SENOKOT) tablet 1 tablet 1 tablet, oral, 2 times daily, First dose on Sun02/23/24 at 2130, If able to swallow tablets. Hold for diarrhea., Indications: constipationIndications:constipat ion Given 02/28/2024 9:30 PM MOTION GRAPHICS DESIGNER 1 tablet Given 02/28/2024 8:08 AM MOTION GRAPHICS DESIGNER 1 tablet Given 02/27/2024 9:39 PM MOTION GRAPHICS DESIGNER 1 tablet sevelamer (RENVELA) tablet 800 mg 800 mg, oral, 3 times daily with meals, First dose on 02/24/24 at 0800, Do not crush, chew, cut, dissolve, open or otherwise manipulate tablet/capsule., Indications: Renal Osteodystrophy with HyperphosphatemiaIndications:Renal Osteodystrophy with Hyperphosphatemia Given 02/29/2024 11:40 AM MOTION GRAPHICS DESIGNER 800 m g Given 02/28/2024 4:52 PM MOTION GRAPHICS DESIGNER 800 mg Given 02/28/2024 12:40 PM MOTION GRAPHICS DESIGNER 800 mg sodium chloride 0.9% 0.9% infusion - ADS Override Pull Starting on 02/23/24 at 1834, For 1 dose, Created by cabinet override sodium chloride 0.9% bolus 1,000 mL 1,000 mL, intravenous, Once, On 02/23/24 at 1843, For 1 dose New Bag 02/23/2024 6:39 PM MOTION GRAPHICS DESIGNER 1,000 mL sodium chloride 0.9% bolus 1,000 mL 1,000 mL, intravenous, Once, On Sun02/27/24 at 1015, For 1 dose New Bag 02/27/2024 9:57 AM MOTION GRAPHICS DESIGNER 1,000 mL sodium chloride 0.9% flush 0.5-20 mL 0.5-20 mL, intra-catheter, Every 8 hours scheduled (alternate), First dose on 02/24/24 at 0000, Flush volume based on line type and size. Given 02/29/2024 9:00 AM MOTION GRAPHICS DESIGNER 10 mL Given 02/29/2024 12:14 AM MOTION GRAPHICS DESIGNER 10 mL Given 02/28/2024 12:34 AM MOTION GRAPHICS DESIGNER 10 mL sodium chloride 0.9% flush 0.5-20 mL 0.5-20 mL, intra-catheter, As needed, line care, Starting on 02/23/24 at 2050, Flush volume based on line type and size. Flush before and after each use. sodium chloride 0.9% flush 125 mL 125 mL, intravenous, As needed, line care, Starting on 02/23/24 at 1833 Given 02/23/2024 6:34 PM MOTION GRAPHICS DESIGNER 80 mL documented in this encounter Discontinued Medications Medication Sig Discontinue Reason Start Date End Da te amLODIPine (NORVASC) 5 mg tablet Take 1 tablet (5 mg total) by mouth daily Stop Taking at Discharge 02/29/2024 furosemide (LASIX) 20 mg tabletIndications:Shawn a Take 1 tablet (20 mg total) by mouth every other day Stop Taking at Discharge 02/29/2024 metoprolol XL (TOPROL-XL) 25 mg extended release tablet Take 1 tablet (25 mg total) by mouth daily Stop Taking at Discharge 02/29/2024 lidocaine (LIDODERM) 5 % Place 1 patch on the skin daily Remove & discard patch within 12 hours or as directed by MD. Stop Taking at Discharge 03/02/2023 02/29/2024 documented as of this encounter Historical Medications * This list may reflect changes made after this encounter. sevelamer (RENAGEL) 800 mg tablet Take 1 tablet (800 mg total) by mouth 3 (three) times a day with meals added in this encounter Active and Recently Administered Medications Times are shown in MOTION GRAPHICS DESIGNER. Scheduled Medication Order 02/27/2024 02/28/2024 02/29/2024 alteplase (CATHFLO ACTIVASE) 2-4 mg in sterile water 4 mL (1 mg/mL) syringe (COMPLETED)(Linked Group 1) 2-4 mg, intra-catheter, Once, On Sun02/29/24 at 0845, For 1 dose, Dialysis, Indwell volume of catheter lumens post treatment. 2 mg/Lumen., Indications: Prevent Occlusion of Catheter 1103 (Given - Provider: Maite Broussard RN - Comment: post HD) aspirin chewable tablet 81 mg 81 mg, oral, Daily, First dose on 02/23/24 at 2207 0845 (Given - Provider: Roddy Mendez RN) 0808 (Given - Provider: Roddy Mendez RN) 1140 (Given - Provider: Sarah Griffith, DANIAL) gabapentin (NEURONTIN) capsule 100 mg 100 mg, oral, 3 times daily, First dose on 02/24/24 at 0900 0845 (Given - Provider: Roddy Mendez RN)1632 (Given - Provider: Roddy Mendez RN)2139 (Given - Provider: Tomas Martínez RN) 0808 (Given - Provider: Roddy Mendez RN)1652 (Given - Provider: Roddy Mendez RN)2129 (Given - Provider: Melina Platt, DANIAL) 1140 (Given - Provider: Sarah Griffith, DANIAL)1600 (Due) heparin 5,000 unit/mL injection 5,000 Units 5,000 Units, subcutaneous, Every 8 hours scheduled, First dose on 02/24/24 at 0000, Indications: Deep Vein Thrombosis Prevention 0845 (Given - Provider: Roddy Mendez RN)1636 (Given - Provider: Roddy Mendez RN) 0034 (Given - Provider: Tomas Martínez, DANIAL)0808 (Given - Provider: Roddy Mendez RN)1653 (Given - Provider: Roddy Mendez RN) 0009 (Given - Provider: Melina Platt, DANIAL)1141 (Not Given - Provider: Sarah Griffith, DANIAL - Reason: Other - Comment: too close to next dose)1600 (Due) senna (SENOKOT) tablet 1 tablet(Linked Group 2) 1 tablet, oral, 2 times daily, First dose on 02/23/24 at 2130, If able to swallow tablets. Hold for diarrhea., Indications: constipation 0734 (Not Given - Provider: Roddy Mendez RN - Reason: Other)2139 (Given - Provider: Tomas Martínez, RN) 0808 (Given - Provider: Roddy Mendez RN)2130 (Given - Provider: Melina Platt RN) 1130 (Not Given - Provider: Sarah Griffith RN - Reason: Order parameters not met) sevelamer (RENVELA) tablet 800 mg 800 mg, oral, 3 times daily with meals, First dose on Sun02/24/24 at 0800, Do not crush, chew, cut, dissolve, open or otherwise manipulate tablet/capsule., Indications: Renal Osteodystrophy with Hyperphosphatemia 0845 (Given - Provider: Roddy Mendez RN)1238 (Given - Provider: Roddy Mendez RN)1822 (Given - Provider: Roddy Mendez RN) 0808 (Given - Provider: Roddy Mendez RN)1240 (Given - Provider: Roddy Mendez RN)1652 (Given - Provider: Roddy Mendez RN) 0800 (Not Given - Provider: Sarah Griffith RN - Reason: Other)1140 (Given - Provider: Sarah Griffith RN) sodium chloride 0.9% bolus 1,000 mL (COMPLETED) 1,000 mL, intravenous, Once, On Sun02/27/24 at 1015, For 1 dose 0957 (New Bag - Provider: Roddy Mendez RN) sodium chloride 0.9% flush 0.5-20 mL(Linked Group 3) 0.5-20 mL, intra-catheter, Every 8 hours scheduled (alternate), First dose on Sun02/24/24 at 0000, Flush volume based on line type and size. 0849 (Not Given - Provider: Roddy Mendez RN - Reason: Other)1641 (Not Given - Provider: Roddy Mendez RN - Reason: Other) 0034 (Given - Provider: Tomas Martínez, DANIAL)0808 (Not Given - Provider: Roddy Mendez RN - Reason: Other)1657 (Not Given - Provider: Roddy Mendez RN - Reason: Other) 0014 (Given - Provider: Melina Platt, DANIAL)0900 (Given - Provider: Sarah Griffith, DANIAL)1600 (Due) PRN Medication Order 02/27/2024 02/28/2024 02/29/2024 acetaminophen (TYLENOL) tablet 650 mg 650 mg, oral, Every 4 hours PRN, 1st line for pain, Starting on 02/23/24 at 2051, Indications: Pain Carrier Fluids for Secondary Infusion - 0.9% Sodium Chloride(Linked Group 3) 30 mL, intravenous, As needed, For priming tubing and/or flushing, Starting on 02/23/24 at 2050, 0-250 ml/hr to flush line after IV infusions when no maintenance IV ordered. Infuse 30mL at the same rate as the secondary infusion. Run as primary IV, not intended for KVO. ipratropium-albuteroL (DUO-NEB) 0.5-2.5 mg/3 mL nebulizer solution 3 mL 3 mL, nebulization, Every 4 hours PRN (manager social responsibility), wheezing, shortness of breath, Starting on 02/23/24 at 2212 ramelteon (ROZEREM) tablet 8 mg 8 mg, oral, Nightly PRN, sleep, Starting on Sun02/26/24 at 2108, Indications: Sleep-Onset Insomnia sodium chloride 0.9% flush 0.5-20 mL(Linked Group 3) 0.5-20 mL, intra-catheter, As needed, line care, Starting on 02/23/24 at 2050, Flush volume based on line type and size. Flush before and after each use. Linked Groups Order Group 1: Dialysis Access Care (CANCELED) Routine, Once (Routine), On Sun02/29/24 at 0811, For 1 occurrence, Catheter access to use for this treatment: Tunneled Dialysis Catheter, Dialysis And alteplase (CATHFLO ACTIVASE) 2-4 mg in sterile water 4 mL (1 mg/mL) syringe (COMPLETED)Jump to med 2-4 mg, intra-catheter, Once, On Sun02/29/24 at 0845, For 1 dose, Dialysis, Indwell volume of catheter lumens post treatment. 2 mg/Lumen., Indications: Prevent Occlusion of Catheter Group 2: senna (SENOKOT) tablet 1 tabletJump to med 1 tablet, oral, 2 times daily, First dose on 02/23/24 at 2130, If able to swallow tablets. Hold for diarrhea., Indications: constipation Or senna 1.76 mg/mL syrup 8.8 mg (CANCELED) 8.8 mg, feeding tube, 2 times daily, First dose on 02/23/24 at 2130, If able to receive medications per tube. Hold for diarrhea., Indications: constipation Group 3: Saline lock IV (CANCELED) Routine, Once (Routine), On 02/23/24 at 2051, For 1 occurrence And sodium chloride 0.9% flush 0.5-20 mLJump to med 0.5-20 mL, intra-catheter, Every 8 hours scheduled (alternate), First dose on 02/24/24 at 0000, Flush volume based on line type and size. And sodium chloride 0.9% flush 0.5-20 mLJump to med 0.5-20 mL, intra-catheter, As needed, line care, Starting on 02/23/24 at 2050, Flush volume based on line type and size. Flush before and after each use. And Carrier Fluids for Secondary Infusion - 0.9% Sodium ChlorideJump to med 30 mL, intravenous, As needed, For priming tubing and/or flushing, Starting on 02/23/24 at 2050, 0-250 ml/hr to flush line after IV infusions when no maintenance IV ordered. Infuse 30mL at the same rate as the secondary infusion. Run as primary IV, not intended for KVO. documented in this encounter Orders Medications Ordered That Alfredo ht Not Have Been Administered Count Last Ordered Date First Ordered Date heparin 1,000 unit/mL injection 1.5-6.9 mL 3 02/29/2024 02/26/2024 sodium chloride 0.9% bolus 200 mL 2 024 02/26/2024 acetaminophen (TYLENOL) tablet 650 mg 1 09/2023 Carrier Fluids for Secondary Infusion - 0.9% Sodium Chloride 1 02/23/2024 docusate (COLACE) 10 mg/mL o ral liquid 100 mg 1 02/23/2024 hydrALAZINE (APRESOLINE) injection 10 mg 1 02/23/2024 labetaloL (NORMODYNE,TRANDAT E) injection 10 mg 1 02/23/2024 ondansetron (ZOFRAN) injection 4 mg 1 02/22 phenylephrine (INOCENTE-SYNEPHRIN E) 1 mg/10 mL (100 mcg/mL) in sodium chloride 0.9% (premix) - ADS Override Pull 1 02/23/2024 senna 1.76 mg/mL syrup 8.8 mg 1 02/23/2024 sodium chloride 0.9% bolus 1,000 mL 1 02/22 sodium chloride 0.9% flush 0.5-20 mL 1 09/2023 sodium chloride 0.9% IVPB 0-250 mL 1 2023 Lab Orders Without Results Count Last Ordered D ate First Ordered Date HEMOGLOBIN A1C 1 02/23/2024 LIPID PANEL 1 02/23/2024 MAGNESIUM 1 02/23/2024 POCT GLUCOSE DEVICE 2 02/23/2024 Nursing Count Last Ordered Date First Orde red Date NURSING COMMUNICATION 1 02/29/2024 CARDIORESPIRATORY MONITOR 1 02/23/2024 NURSING SWALLOW ASSESSMENT 1 02/23/2024 WEIGH PATIENT 1 02/23/2024 Consult Count Last Ordered Date First Orde red Date IP CONSULT TO NEPHROLOGY 1 02/25/2024 IP CONSULT TO NEUROLOGY 1 02/23/2024 IP CONSULT TO NEUROSURGERY 1 02/23/2024 IV Count Last Ordered Date First Orde red Date SALINE LOCK IV 2 02/23/2024 Dialysis Count Last Ordered Date First Orde red Date HEMODIALYSIS/DUF 1 02/28/2024 Admission Count Last Ordered Date First Orde red Date ADMIT TO INPATIENT 1 02/23/2024 Transfer Count Last Ordered Date First Orde red Date TRANSFER PATIENT TO NEW UNIT 2 02/25/2024 02/24/2024 Discharge Count Last Ordered Date First Orde red Date DISCHARGE PATIENT 1 02/29/2024 CORE MEASURES Count Last Ordered Date First Ord ered Date REASON FOR NO VTE PROPHYLAXI S - HOSPITAL ADMISSION - MEDICATIONS 1 02/23/2024 documented in this encounter Care Teams Sleeve Separator Relationship Specialty Start Date End Date No, Physician PCP - General 02/28/23 02/26/24 Jasson Cueva MD [address] [place] [address] PCP - General Family Medicine 02/27/24 documented as of this encounter
--- OUTSIDE RECORDS SUMMARY | 2024-03-19 19:08 | XMS_ITS | Encounter Summary ---
Author Organization [facility] Address [address] [address] Phone Care Team Providers Care Balling Machine Operator Name Role Phone Jasson Cueva MD Primary Care Provider [phone] Encounter Details Date Type Department Care Team (Late st Contact Info) Description 02/20/2022 11:30 AM GARDEN EQUIPMENT MECHANIC Office Visit [facility] Nephrology and Hypertension [address] [place] [address], [address] [place], [place] [id number] Joao Walter MD [address] [facility], [address] [place] [address] Essential hypertension (Primary Dx); Chronic kidney disease, Stage IV (severe) (CMS-HCC) Social History Tobacco Use Types Packs/Day Years Used Date Smoking Tobacco: Former Cigarettes Smokeless Tobacco: Never Tobacco Cessation:Counseling Given: Not Answered Alcohol Use Standard Drinks/Week Comments Not Currently 0 (1 standard drink = 0.6 oz pur e alcohol) Sex and Gender Information Value Date Recorded Sex Assigned at Not on file Gender Identity Not on file Sexual Orientation Not on file documented as of this encounter Last Filed Vital Signs Vital Sign Reading Time Taken Comments Blood Pressure 118/70 02/20/2022 11:29 AM GARDEN EQUIPMENT MECHANIC Pulse 72 02/20/2022 11:29 AM GARDEN EQUIPMENT MECHANIC Temperature 35.4 ??C (95.8 ??F) 02/20/2022 11:[address] Respiratory Rate - - Oxygen Saturation - - Inhaled Oxygen Concentration - - Weight 78.5 kg (173 lb) 02/20/2022 11:29 AM GARDEN EQUIPMENT MECHANIC Height 170.2 cm (5' 7 ) 02/20/2022 11:29 AM GARDEN EQUIPMENT MECHANIC Body Mass Index 27.1 02/20/2022 11:29 AM GARDEN EQUIPMENT MECHANIC documented in this encounter Progress Notes * Joao Walter MD - 02/20/2022 11:30 AM CST Trisha Waite is a pleasant 71 y.o.female. Here with son, Zack. Trisha is a very pleasant lady who has chronic kidney disease. [facility]. This is a long drive for her so she wanted to change offices. The patient has a GFR that runs between 18 and 20. It has been this way for the past year or two. 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 The ckd is felt to be due to the small kidney, hypertension and vascular disease. The patient denies any bloody urine, foamy, urine, kidney stones, or bladder infections. She has nopain with urination. The patient has hypertension. This has been going on for about three years. She is on amlodipine and metoprolol, and it is well-controlled. The patient sees a lending activities supervisor. This started in 2019 because she went to the emergency room and had positive troponins. He did a stress test which was negative and an echo which was unremarkable. Hefelt that the troponins were elevated because of her kidney disease. She???s never had heart failure, or a heart attack. She does have swelling occasionally and so is on Lasix. In the past she???s had higher doses of Lasix when the swelling was worse but this leads to a higher creatinine so she is trying to minimize the salt intake so she doesn???t have to take so much Lasix. Things have been pretty stable with her swelling lately and her GFR is stable as well. She had two strokes in 2019. She was left with some right sided weakness and decrease in short-termmemory. The patient has DJD. 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 The patient has a history of kidney stones, but the last one was decades ago. Past history: CKD, hypertension, edema, stroke times two, UTI, DJD, kidney stones. No Known Allergies Social History Tobacco Use ??? Smoking status: Former Types: Cigarettes ??? Smokeless tobacco: Never Substance Use Topics ??? Alcohol use: Not Currently ??? Drug use: Yes Types: Marijuana Comment: occasionally ROS Constitutional: Negative except as above Urologic: Negative except as above Pulmonary: Negative except as above Abdomen: Negative except as above Neuro: Negative except as above ENT: Negative except as above Endocrine: Negative except as above Psychiatric: Negative except as above Cardiac: Negative except as above Skin: Negative except as above Rheumatologic: Negative except as above BP 118/70 Pulse 72 Temp 95.8 ??F (35.4 ??C) Ht 5' 7 (1.702 m) Wt 173 lb (78.5 kg) BMI 27.10 kg/m?? BSA 1.93 m?? WDWN female in NAD Skin warm and dry, no rash Neck no nodes, no TMG or bruits Lungs Clear in inspiration, some exp rhonchi and inc exp phase and normal percussion Cor RRR no rub or gallop Abd BS+ nontender and soft, no masses, HSM, or bruits. Ext No cyanosis, clubbing, or edema. Pulses 2+/= radial arteries Head NCAT Eyes normal sclerae and conjunctivae Back no CVAT Psyche: not anxious or depressed Neuro: A+O x 3, motor 5/5, cr ns 2-12 intact, reflexes 2+/= biceps and patellar tendons, Cb normal DEVI Recent Labs: 04/12/21 Cr 3.3, gfr 14 08/16/21 Cr 2.7, gfr 19 12/21/21 Cr 3.47, gfr 14, UA 1+leuk 2+pro trbld,Cx gnr, Hb 12.7, 12/22/21 Cr 2.73, gfr 18, Imaging: Impression: Trisha has chronic kidney disease. This is most likely due to hypertension and vascular disease. Her GFR has been relatively stable between 18 and 20 over the last year. Her blood pressure is under good control. No need for GRAZYNA/ARBs because her GFR is too low. She avoids large amounts of protein by taste. She doesn???t take any nonsteroidal anti-inflammatory agents. Will follow PTH. PCP to follow cholesterol. The patient will get some more blood work done before the next visit and follow up with me in aboutfour months. Assessment/Plan Diagnoses and all orders for this visit: Essential hypertension - CBC (includes Differential/Platelets); Future - PTH Intact w/o Calcium, Serum; Future - Renal Function Panel (RFP); Future - Total Protein w/ Creatinine, Urine, Random; Future Chronic kidney disease, Stage IV (severe) ([facility]) - CBC (includes Differential/Platelets); Future - PTH Intact w/o Calcium, Serum; Future - Renal Function Panel (RFP); Future - Total Protein w/ Creatinine, Urine, Random; Future [facility] documented in this encounter Plan of Treatment Scheduled Orders Name Type Priority Associated Diagnoses Orde r Schedule CBC (includes Differential/Platelets ) Lab Routine Essential hypertension Chronic kidney disease, Stage IV (severe) ([facility]) 1 Occurrences starting 02/20/2022 until 02/20/2023 PTH Intact w/o Calcium, Serum Lab Routine Essential hypertension Chronic kidney disease, Stage IV (severe) ([facility]) 1 Occurrences starting 02/20/2022 until 02/20/2023 Renal Function Panel (RFP) Lab Routine Essential hypertension Chronic kidney disease, Stage IV (severe) ([facility]) 1 Occurrences starting 02/20/2022 until 02/20/2023 Total Protein w/ Creatinine, Urine, Random Lab Routine Essential hypertension Chronic kidney disease, Stage IV (severe) ([facility]) 1 Occurrences starting 02/20/2022 until 02/20/2023 documented as of this encounter Visit Diagnoses Diagnosis Essential hypertension- Primary Chronic kidney disease, Stage IV (severe) ([facility]) Chronic kidney disease, Stage IV (severe) documented in this encounter Care Teams Balling Machine Operator Relationship Specialty Start Date End Date Jasson Cueva MD [address] [place] [id number] PCP - General Family Medicine 01/03/22 documented as of this encounter
--- OUTSIDE RECORDS SUMMARY | 2024-03-19 19:08 | XMS_ITS | Clinical Summary ---
Author Organization [facility] Address [address] [place] [id number] Phone Care Team Providers Care Human Resource Advisor Name Role Phone Jasson Cueva MD Primary Care Provider [phone] Allergies No known active allergies Medications Medication Sig Dispensed Refills Start Date End Date Status amLODIPine (NORVASC) 2.5 MG tablet Take 2.5 mg by mouth in the morning. 12/22/2019 Active aspirin (ST GULSHAN) 81 MG EC tablet Take 81 mg by mouth in the morning. Active cholecalciferol (VITAMIN D-3) 125 MCG (5000 UT) capsule Take 1 capsule by mouth in the morning. Active furosemide (LASIX) 20 MG tablet 2 x weekly 11/15/2021 Active gabapentin (NEURONTIN) 600 MG tablet 12/19/2021 Active metoprolol succinate XL (TOPROL-XL) 50 MG 24 hr tablet 12/19/2021 Active acetaminophen (TYLENOL) 500 MG tablet Take by mouth every 6 (six) hours if needed Active Active Problems Problem Noted Date Diagnosed Date Chronic kidney disease, Stage IV (severe) 2021 Essential hypertension 02/20/2022 Immunizations Name Administration Dates Next Due Influenza TIV (IM) 12/17/2021 Family History Medical History Relation Comments Kidney disease Neg Hx Social History Tobacco Use Types Packs/Day Years [...] Comments Blood Pressure 118/70 02/20/2022 11:29 AM SUPERVISOR SMOKE CONTROL Pulse 72 02/20/2022 11:29 AM SUPERVISOR SMOKE CONTROL Temperature 35.4 ??C (95.8 ??F) 02/20/2022 11:[address] Respiratory Rate - - Oxygen Saturation - - Inhaled Oxygen Concentration - - Weight 78.5 kg (173 lb) 02/20/2022 11:29 AM SUPERVISOR SMOKE CONTROL Height 170.2 cm (5' 7 ) 02/20/2022 11:29 AM SUPERVISOR SMOKE CONTROL Body Mass Index 27.1 02/20/2022 11:29 AM SUPERVISOR SMOKE CONTROL Plan of Treatment Health Maintenance Due Date Last Done Comments Pneumococcal PPSV23/PCV13 65 + Years / High and Highest Risk (1 of 4 - PCV) 08/23/1956 Influenza Vaccine (#1) 2023 12/17/2021 Care Teams Human Resource Advisor Relationship Specialty Start Date End Date Jasson Cueva MD [address] [place] [id number] PCP - General Family Medicine 01/03/22
--- OUTSIDE RECORDS SUMMARY | 2024-03-19 19:08 | XMS_ITS | Clinical Summary ---
Author Organization Unknown Care Team Providers Care Drainman Name Role Phone SHEA BELL, NIYA Unavailable Unavailable EARNESTINE REGISTERED NURSE, HARRISON Unavailable [facility] PHYSICAL THERAPIST, GLORIA Unavailabl e Unavailable GERARDO REGISTERED NURSE, PATIENCE Unavailable Unavailable BALAJI REGISTERED NURSE, TERENCE Unavailable Unavailable Payers Payer Name Policy Type Policy Number Effective Date Expira tion Date MEDICARE [place] - EPISODIC [id number] Problems Condition Name Condition Details Condition Category [...] DEPENDENCE ON WHEELCHAIR Active 03-19 00:00: 00 [facility] (CURRENT) USE OF ASPIRIN Active 03-19 00:00: [...] 11-10 00:00: 00 11-18 23:59 :00 No [id number] HIGH BLOOD PRESSURE 1 tablet ONCE DAILY 1 tablet ONCE DAILY (route: oral) Med Classific ation: Cardiovas cular Therapy Agents Aspirin Low Dose 81 mg tablet,racquel yed release 11-10 00:00: 00 05-14 23:59 :00 No [id number] HX OF CVA 1 tablet ONCE DAILY 1 tablet ONCE DAILY (route: oral) Med Classific ation: Hematolog ical Agents gabapentin 600 mg tablet 11-10 00:00: 00 12-29 23:59 :00 No [id number] NERVE PAIN 1 tablet ONCE DAILY 1 tablet ONCE DAILY (route: oral) Med Classific ation: Central Nervous System Agents metoprolol succinate ER 50 mg tablet,exte nded release 24 hr 11-10 00:00: 00 03-16 00:00 :00 No [id number] HIGH BLOOD PRESSURE 1 tablet ONCE DAILY 1 tablet ONCE DAILY (route: oral) Med Classific ation: Cardiovas cular Therapy Agents Vitamin D3 125 mcg (5,000 unit) tablet 11-10 00:00: 00 02-23 23:59 :00 No [id number] SUPPLEMENT 1 tablet ONCE DAILY 1 tablet ONCE DAILY (route: oral) Med Classific ation: Electroly te Balance-N utritiona l Products furosemide 20 mg tablet 11-18 00:00: 00 11-26 23:59 :00 No [id number] FLUID RETENTION 1 tablet ONCE DAILY 1 tablet ONCE DAILY (route: oral) Med Classific ation: Cardiovas cular Therapy Agents furosemide 20 mg tablet 11-29 00:00: 00 08-16 23:59 :00 No [id number] FLUID RETENTION 1 tablet DIRECTED 1 tablet DIRECTED (route: oral) Med Classific ation: Cardiovas cular Therapy Agents amlodipine 5 mg tablet 11-19 00:00: 00 02-23 23:59 :00 No [id number] HYPERTENSIO N 1 tablet ONCE DAILY 1 tablet ONCE DAILY (route: oral) Alternate Route: BY MOUTH. Med Classific ation: Cardiovas cular Therapy Agents gabapentin 600 mg tablet 12-13 00:00: 00 03-16 00:00 :00 No [id number] NERVE PAIN 1 tablet 3 TIMES DAILY 1 tablet 3 TIMES DAILY (route: oral) Alternate Route: BY MOUTH. Med Classific ation: Central Nervous System Agents albuterol sulfate HFA 90 mcg/actuati on aerosol inhaler 2020-03 00:00: 00 03-16 00:00 :00 No [id number] SHORTNESS OF BREATH 1-2 puff EVERY 4-6 HOURS PRN 1-2 puff EVERY 4-6 HOURS PRN (route: inhalation ) Med Classific ation: Respirato ry Therapy Agents albuterol sulfate 2.5 mg/3 mL (0.083 %) solution for nebulizatio n 2020-03 00:00: 00 03-16 00:00 :00 No [id number] WHEEZING 3 mL NEEDED 3 mL NEEDED (route: inhalation ) Med Classific ation: Respirato ry Therapy Agents arformotero l 15 mcg/2 mL solution for nebulizatio n 2020-03 00:00: 03-16 00:00 :00 No [id number] WHEEZING 2 mL 2 TIMES DAILY 2 mL 2 TIMES DAILY (route: inhalation ) Med Classific ation: Respirato ry Therapy Agents ipratropium bromide 0.02 % solution for inhalation 2020-03-08 00:00: 00 03-16 00:00 :00 No [id number] WHEEZING 2.5 mL 4 TIMES DAILY 2.5 mL 4 TIMES DAILY (route: inhalation ) Med Classific ation: Respirato ry Therapy Agents cephalexin 250 mg tablet 1-26 00:00: 00 04-20 23:59 :00 No [id number] UTI 1 tablet 2 TIMES DAILY 1 tablet 2 TIMES DAILY (route: oral) Med Classific ation: Anti-Infe ctive Agents furosemide 20 mg tablet 5-31 00:00: 00 02-23 23:59 :00 No [id number] EDEMA 1 tablet ONCE DAILY 1 tablet ONCE DAILY (route: oral) Alternate Route: BY MOUTH. Med Classific ation: Cardiovas cular Therapy Agents furosemide 20 mg tablet 8-23 00:00: 00 11-15 23:59 :00 No [id number] INCREASED EDEMA TO BILATERAL LOWER EXTREMITIES 2 tablet ONCE DAILY 2 tablet ONCE DAILY (route: oral) Alternate Route: BY MOUTH. Med Classific ation: Cardiovas cular Therapy Agents Lasix 20 mg tablet 9-07 00:00: 00 02-01 23:59 :00 No [id number] EDEMA 20 mg 3 TIMES DAILY 20 mg 3 TIMES DAILY (route: oral) Med Classific ation: Cardiovas cular Therapy Agents amoxicillin 875 mg-potassiu m clavulanate 125 mg tablet 2021-03 0-10 00:00: 00 12-31 23:59 :00 No [id number] UTI 1 tablet TWICE DAILY 1 tablet TWICE DAILY (route: oral) Med Classific ation: Anti-Infe ctive Agents furosemide 20 mg tablet 2021-03 0-05 00:00: 00 03-02 23:59 :00 No [id number] EDEMA 1 tablet ONCE DAILY 1 tablet ONCE DAILY (route: oral) Alternate Route: BY MOUTH. Med Classific ation: Cardiovas cular Therapy Agents gabapentin 100 mg capsule 2022-03 2-26 00:00: 00 02-23 23:59 :00 No [id number] PAIN 100 mg 3 TIMES DAILY 100 mg 3 TIMES DAILY (route: oral) Med Classific ation: Central Nervous System Agents hydrocodone 5 mg-acetamin ophen 325 mg tablet 2022-03 00:00: 00 02-23 23:59 :00 No [id number] PAIN 1 tablet EVERY 6 HOURS 1 tablet EVERY 6 HOURS (route: oral) Med Classific ation: Analgesic , Anti-infl ammatory or Antipyret ic Lidocaine Pain Relief 4 % topical patch 2022-03 00:00: 00 02-23 23:59 :00 No [id number] PAIN 1 adhesiv e patch, medicat ed ONCE DAILY 1 adhesive patch, medicated ONCE DAILY (route: topical) Med Classific ation: Dermatolo gical metoprolol succinate ER 25 mg tablet,exte nded release 24 hr 2022-03 00:00: 00 02-23 23:59 :00 No [id number] HTN 1 tablet ONCE DAILY 1 tablet ONCE DAILY (route: oral) Med Classific ation: Cardiovas cular Therapy Agents omeprazole 20 mg capsule,del ayed release 2022-03 00:00: 00 02-23 23:59 :00 No [id number] GERD 1 capsule ONCE DAILY 1 capsule ONCE DAILY (route: oral) Med Classific ation: Gastroint estinal Therapy Agents Aspirin Low Dose 81 mg tablet,racquel yed release 8-25 00:00: 00 02-23 23:59 :00 No [id number] HX OF CVA 1 tablet ONCE DAILY [...] WILL BE ESTABLISHED THAT MEETS ALL PATIENT'S ALF NEEDS AND COUNTER SIGNED BY PHYSICIAN. Goal [...] End Date/Time Encounter Type Admission Type Attending [facility] Care Department Encounter ID Discharge Date Discharge Status Discharge Condition Discharge Reason Percent Goals Met 2023-03-16 00:00:00 2023-07-11 00:00:00 Outpatient RECERTIFIC ATPATIENCE [facility] [id number] 00:00:00 DISCHARGE TO HOME OR SELF CARE INDEPENDEN T WITH USE OF ASSISTIVE DEVICE GOALS MET 96.15
== END 2024-03-14 23:05 | DRG 193 ==
LOC: ANHED 15:43 → ANH2MED 20:56
PROVIDERS: Internal Medicine Nephrology; Nurse Practitioner Adult Health; Physician Assistant; Admitting Provider Internal Medicine; Emergency Provider Physician Assistant; PCP Family Medicine; Visit Provider Internal Medicine
DX: J18.9 Pneumonia, unspecified organism (principal); J96.01 Acute respiratory failure with hypoxia; N18.6 End stage renal disease; I12.0 Hypertensive chronic kidney disease with stage 5 chronic kidney disease or end stage renal disease; I69.351 Hemiplegia and hemiparesis following cerebral infarction affecting right dominant side; J44.0 Chronic obstructive pulmonary disease with (acute) lower respiratory infection; I48.20 Chronic atrial fibrillation, unspecified; I69.311 Memory deficit following cerebral infarction; D63.1 Anemia in chronic kidney disease; E21.1 Secondary hyperparathyroidism, not elsewhere classified; E78.5 Hyperlipidemia, unspecified; M19.90 Unspecified osteoarthritis, unspecified site; R91.1 Solitary pulmonary nodule; R94.31 Abnormal electrocardiogram [ECG] [EKG]; R13.12 Dysphagia, oropharyngeal phase; F32.A Depression, unspecified; Z20.822 Contact with and (suspected) exposure to COVID-19; Z96.611 Presence of right artificial shoulder joint; Z96.652 Presence of left artificial knee joint; Z79.82 Long term (current) use of aspirin; Z87.891 Personal history of nicotine dependence; Z99.2 Dependence on renal dialysis
CPT/HCPCS: 36415; 71045; 71275; 78452; 80048; 80053; 80202; 83690; 83735; 83880; 84100; 84484; 85025; 85027; 85380; 85610; 85730; 86738; 87040; 87636; 87641; 93005; 93017; 94640; 96374; 96375; 99285; A9270; A9502; G0257; G0378; J0280; J0456; J0692; J1644; J2785; J3370; J7030; P9047; Q9967